=== PATIENT | female | born 1965 | race Caucasian/White ===

== ENCOUNTER → 2016-10-09 | Outpatient (CLI) | payer MEDICAID ==
[~2016-10-09] MED LIST: ACET-789 PO; ALBU17AE23 IH; AMLO10TA4; AMLO10TA4 PO; AMOX-355 PO; AMOX500C2 PO; ASP325T PO; CEPH-38 PO; CLR7.5T; CLR7.5T PO; DOCU-143 PO; FLUT9.9S NS; GUAI1TAB21; HYDR12.56 PO; HYDR480S10 PO; HYOMAX; HYOS0.1216 PO; HYOS0.3710 PO; IBUP-1773 PO; INDERAL; ISOM1CAP11 PO; ONDA4TAB11 PO; OXYC-471 PO; PREMPRO; PROP120C2 PO; PROP20TA5 PO; PROP80CA2 PO; PROPRANOLOL 120 MG; SCOP1PAT TOP; TERBIN250T PO; TRM50T PO; VENL50TA; VNL75CCR PO; [UNRECOGNIZED DRUG - CODE]; [UNRECOGNIZED DRUG - OTHER]; [UNRECOGNIZED DRUG - OTHER]
--- NOTE | 2016-10-09 13:21 | Diagnostic Imaging Report ---
INDICATION: Left lower quadrant pain. EXAMINATION: Pelvic sonogram. FINDINGS: The uterus measures 6.2 x 4.3 x 3.6 cm. The myometrium and endometrium appear normal. The left ovary is present. There is a 1.6 cm simple cyst on the left ovary. The right ovary could not be located sonographically. IMPRESSION: Unremarkable pelvic sonogram. Dictated by: Dictated on workstation # [id number]
== END ==
LOC: RAD 10:02
PROVIDERS: ATTEND Nurse Practitioner Community Health
DX: N83.201 Unspecified ovarian cyst, right side (principal)
CPT/HCPCS: 76830; 76856

== ENCOUNTER → 2016-11-14 | Outpatient (CLI) | payer MEDICAID ==
--- NOTE | 2016-11-14 17:43 | Diagnostic Imaging Report ---
Bilateral screening mammogram. The current study was also evaluated with a Computer Aided Detection (CAD) system. INDICATION: Screening. No current complaints stated on the questionnaire. COMPARISON: 11/10/15. FINDINGS: The breasts are composed of heterogeneously dense parenchyma which may decrease mammographic sensitivity. There are benign-appearing calcifications seen. Allowing for technique and positional differences, no suspicious change is seen. IMPRESSION: Dense breasts with no definite change. ACR BI-RADS Category 2: Benign findings. Result letter will be mailed to the patient. Note: At least 10% of breast cancer is not imaged by mammography. Dictated by: Dictated on workstation # [id number]
== END ==
LOC: RAD 13:49
PROVIDERS: ATTEND Family Medicine
DX: Z12.31 Encounter for screening mammogram for malignant neoplasm of breast (principal)
CPT/HCPCS: 77067

== ENCOUNTER 2016-11-26 08:59 | Outpatient (CLI) | payer MEDICAID ==
[~2016-11-26] VITALS: Ht 170.2 cm; Wt 73.2 kg
[~2016-11-26 08:59] MED LIST changes: -IBUP-1773 PO; -ONDA4TAB11 PO; -OXYC-471 PO; -SCOP1PAT TOP
[2016-11-26 09:15] VITALS: BP 123/80
[2016-11-26 09:44] LABS: BASOPHILS # (AUTO) 0.1 10^3/uL (0.0-0.1); BASOPHILS % (AUTO) 0 % (0-10); EOSINOPHILS # (AUTO) 0.2 10^3/uL (0.0-0.3); EOSINOPHILS % (AUTO) 2 % (0-10); LYMPHOCYTES # (AUTO) 3.5 X 10^3 (1.0-4.0); LYMPHOCYTES % (AUTO) 28 % (12-44); MEAN CORPUSCULAR HEMOGLOBIN 31 PG (25-34); MEAN CORPUSCULAR HGB CONC 34 G/DL (32-36); MEAN CORPUSCULAR VOLUME 92 FL (80-99); MEAN PLATELET VOLUME 10.4 FL (7.4-10.4); MONOCYTES # (AUTO) 0.7 X 10^3 (0.0-1.0); MONOCYTES % (AUTO) 6 % (0-12); NEUTROPHILS # (AUTO) 7.8 X 10^3 (1.8-7.8); NEUTROPHILS % (AUTO) 64 % (42-75); PLATELET COUNT 269 10^3/uL (130-400); RED BLOOD COUNT 4.58 10^6/uL (4.35-5.85); RED CELL DISTRIBUTION WIDTH 12.6 % (10.0-14.5); WHITE BLOOD COUNT 12.2 10^3/uL (4.3-11.0)
[2016-11-28] MEDS ORDERED: IBUP-1773 PO (08:59)
== END 2016-11-26 13:13 | disposition home or self-care (01) ==
LOC: PREOP 08:59
PROVIDERS: ATTEND Obstetrics & Gynecology
DX: Z01.812 Encounter for preprocedural laboratory examination (principal); Z11.2 Encounter for screening for other bacterial diseases; N92.0 Excessive and frequent menstruation with regular cycle
CPT/HCPCS: 36415; 85025; 86850; 86900; 86901; 87081

== ENCOUNTER 2016-11-28 06:54 | Day surgery (SDC) | payer MEDICAID ==
[~2016-11-28] VITALS: Ht 170.2 cm; Wt 73.2 kg
[2016-11-28 07:31] VITALS: BP 118/80
[2016-11-28] MEDS ORDERED: ONDANSETRON 4 MG/2 ML (SDV) Z0FRAN ONE ×2 (07:33→08:27)
[2016-11-28] MEDS ORDERED: SCOPOLAMINE 1.5 MG (TRANSDERM-SCOP) PATCH ONE (07:33)
[2016-11-28] MEDS ORDERED: FAMOTIDINE 20MG/2ML IV (PEPCID) ONE (07:34)
[2016-11-28] MEDS ORDERED: LACTATED RINGERS 1,000 ML IV PRN (07:36)
[2016-11-28] MEDS ORDERED: SCOPOLAMINE 1.5 MG (TRANSDERM-SCOP) PATCH TOP ONE (07:45)
[2016-11-28] MEDS ORDERED: ONDANSETRON 4 MG/2 ML (SDV) Z0FRAN IV ONE (07:45)
[2016-11-28] MEDS ORDERED: FAMOTIDINE 20MG/2ML IV (PEPCID) IV ONE (07:45)
[2016-11-28] MEDS ORDERED: LACTATED RINGERS 1,000 ML IV ONE ×2 (08:27→09:16)
[2016-11-28] MEDS ORDERED: SEVOFLURANE (ULTANE) 15 ML INHAL SOLN ONE ×3 (08:27→09:36)
[2016-11-28] MEDS ORDERED: DEXAMETHASONE PF 10 MG/ML (DECADRON) VIAL ONE (08:27)
[2016-11-28] MEDS ORDERED: fentaNYL INJECTION 100 MCG/2 ML AMP ONE (08:27)
[2016-11-28] MEDS ORDERED: proPOfol 200 MG/20 ML (DIPRIVAN) VIAL IV ONE (08:27)
[2016-11-28] MEDS ORDERED: LIDOCAINE PF 2% 10 ML (XYLOCAINE) AMP ONE (08:27)
[2016-11-28] MEDS ORDERED: MIDAZOLAM 2 MG/2 ML (VERSED) VIAL ONE (08:28)
--- NOTE | 2016-11-28 08:58 | Progress Note-Pre Operative ---
Pre-Operative Progress Note H&P Reviewed The H&P was reviewed, patient examined and no changes noted. Date H&P Reviewed: Nov 28, 2016 Time H&P Reviewed: 08:57 Pre-Operative Diagnosis: AUB, Menorrhagia PATRIA EASTON DO Nov 28, 2016 8:58 am
[2016-11-28] MEDS ORDERED: IBUP-1773 PO (08:59)
[2016-11-28] MEDS ORDERED: BUPIVACAINE 0.25% 30 ML (SENSORCAINE) VIAL ONE (09:00)
--- NOTE | 2016-11-28 09:02 | Discharge Inst-Women's Service ---
Discharge Inst-Women's Serv Depart Medication/Instructions New, Converted or Re-Newed RX: RX Given to Pt/Family Consults/Follow Up Additional Follow Up: Yes Activity Activity: Activity as Tolerated Driving Instructions: You May Drive NO SMOKING: NO SMOKING Nothing Inside Vagina: No Douching, No [place], No Tampons Diet Discharge Diet: No Restrictions Symptoms to Report to : Bleeding Excessive, Pain Increased, Fever Over 101 Degrees F, Vaginal Bleeding Increase, Questions/Concerns Skin/Wound Care Bathing Instructions: Shower (x 2 days) PATRIA EASTON DO Nov 28, 2016 9:02 am
[2016-11-28] MEDS ORDERED: GLYCOPYRROLATE 0.2 MG/ML (ROBINUL) 2 ML VIAL ONE (09:16)
[2016-11-28] MEDS ORDERED: KETOROLAC 30 MG/ML VIAL ONE (09:24)
[2016-11-28] MEDS ORDERED: ONDANSETRON 4 MG/2 ML (SDV) Z0FRAN IVP PRN (09:45)
[2016-11-28] MEDS ORDERED: morphine INJ 10 MG/ML 1ML (SYR OR VIAL) IVP PRN (09:45)
[2016-11-28] MEDS ORDERED: MEPERIDINE (DEMEROL) INJ 50 MG/ML IVP PRN (09:45)
[2016-11-28] MEDS ORDERED: morphine INJ 4 MG/ML 1 ML (VIAL/SYRINGE) ONE (10:00)
[2016-11-28 10:25] VITALS: BP 127/83
[2016-11-28] MEDS ORDERED: IBUPROFEN TABLET 200 MG TAB PO ONE (10:32)
[2016-11-28] MEDS ORDERED: IBUPROFEN 600 MG (MOTRIN) TAB PO ONE (10:45)
[2016-11-28 10:55] VITALS: BP 133/81
[2016-11-28 11:25] VITALS: BP 105/70
[2016-11-28 11:30] VITALS: BP 105/70
--- NOTE | 2016-11-28 13:21 | OPERATIVE REPORT ---
PROCEDURE PHYSICIAN: PATRIA EASTON DATE OF PROCEDURE: 11/28/2016 PREOPERATIVE DIAGNOSES: 51-year-old female with abnormal uterine bleeding - menorrhagia. POSTOPERATIVE DIAGNOSES: 51-year-old female with abnormal uterine bleeding -- menorrhagia. PROCEDURE: D\T\C hysteroscopy with NovaSure endometrial ablation. SURGEON: Dr. Patria Easton. ANESTHESIA: General endotracheal. ESTIMATED BLOOD LOSS: Minimal. URINE OUTPUT: 100 mL clear drained urine at the end of the procedure via straight catheterization. FLUIDS: 1500 mL of lactated ringer solution. SPECIMEN SENT: Endometrial curettings. INDICATIONS FOR THE PROCEDURE: This 51-year-old female was a consultation in my office for possible endometrial ablation after the patient has recurrent issues with heavy menses that are sporadic and cannot be determined by timing of the month. The patient reports these are ongoing issues and had seen me in the past for some more complaint where we ended up going with more conservative measures. At this visit endometrial biopsy was obtained and I discussed with the patient if biopsy was negative we could proceed with endometrial ablation if that is the course she wished to take. The risk of the procedure was discussed wit the patient in detail as well as alternatives, risk of bleeding, infection, damaging any surrounding structures, including but not limited to the bowel, bladder, ureter, kidneys, risk for perforation, and risk of damage from the NovaSure itself was also discussed the patient in detail. After all of her questions were answered, risk from anesthesia was discussed and even . The patient consented for the procedure as detailed above and the patient was then taken to the operating room. OPERATIVE REPORT IN DETAIL: Once in the operating room general anesthesia was found to be adequate. She was placed in the dorsal lithotomy position, prepped and draped in the normal sterile fashion. A timeout is performed. I then placed a weighted speculum into the patient's vagina. A right angle retractor was used to visualize the cervix. It was grasped at the 12 o'clock position using long Allis clamp. I then perform a paracervical block at 3 and 9 o'clock positions using 0.25% Marcaine. Care is taken to aspirate before injecting. A total of 10 mL were used at these injection sites. I then gently dilate the cervix using Hegar dilators after sounding the uterine cavity depth which was found to be approximately 7.5 cm. After the cervix is dilated. I introduced a hysteroscope under direct visualization using normal saline as my visual medium, and true clear as my fluid monitoring system. I am able to visualize the endometrial cavity. There is a moderate amount of fluffy endometrium on the right endometrial wall. The remainder of the endometrial cavity is pretty atrophic. I then remove my hysteroscope and collect endometrial curettings. I then proceed with ablating the endometrial cavity using the NovaSure. Cavity depth is assessed using NovaSure, cavity depth assessment tool which was found to be approximately 4 cm. I then set the cavity depth of 4 cm and deploy the NovaSure in the endometrial canal. I then find a cavity width to be approximately 2.5 cm; we set the device accordingly to 4 and 2.5 cm. Care was taken to do a cavity assessment. I then enabled the NovaSure device. Once it is complete I remove it and deploying the device outside the patient's bladder which shows evidence of endometrial sadie. I then advance a hysteroscope to confirm proper sadie of the endometrial cavity which was found to be adequate and documented with photodocumentation. I then remove the hysteroscope and remove all the other instruments from the patient's vagina. The patient tolerated the procedure well and was taken to recovery area in stable condition. Lap and sponge counts were correct at the end of the procedure. Instrument counts correct as well. Job ID: [id number] Dictated Date: 11/28/2016 09:59:30 Performance Improvement Analyst Date: 11/28/2016 13:07:04 / moshe
[2016-12-19] MEDS ORDERED: OXYC-471 PO (11:39)
[2016-12-19] MEDS ORDERED: IBUP-1773 PO (11:39)
[2016-12-19] MEDS ORDERED: SCOP1PAT TOP (11:39)
--- OUTSIDE RECORDS SUMMARY | 2016-12-29 20:40 | XMS REPORT ---
Author Author LETTY WILKINS [facility] Address [address] [place] [address] Care Team Providers Care Fold Skiver Name Role Phone LETTY WILKINS Unavailable PROBLEMS Type Condition ICD9-CM Code [id number] Code Onset Dates Condition Status SNOMED Code Assessment Hypertension I10 28 Apr, 2016 Active 93201621 Problem Generalized anxiety disorder F41.1 Active 103528987 Problem Other and unspecified hyperlipidemia 272.4 Active 27829174 Problem Diverticulosis of small intestine (without mention of hemorrhage) 562.00 Active 7181574 Problem Chest pain, unspecified 786.50 Active 54084700 Problem Esophageal reflux 530.81 Active 613918314 Problem Hypertension I10 Active 87153764 Problem Dense breast tissue R92.2 Active 867804949 Problem History of colon polyps Z86.010 Active 275514187 Problem Family history of diabetes mellitus Z83.3 Active 540841573 Problem History of diverticulitis Z87.19 Active 270991722652517 Problem Unspecified vaginitis and vulvovaginitis 616.10 Active 490794363 Problem Dysphagia, unspecified 787.20 Active 04425164 Problem Unspecified gastritis and gastroduodenitis without mention of hemorrhage 535.50 Active 143901381 Problem Perimenopausal N95.1 Active 518202137685406 Problem History of ovarian cyst Z87.42 Active 344681009 Problem Hot flashes N95.1 Active 946488815 Problem Excessive and frequent menstruation with irregular cycle N92.1 Active 777530026 Problem Dermatophytosis of nail 110.1 Active 756001252 Problem 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 719989938 Problem Family history of diabetes mellitus V18.0 Active 898993720 Problem Screening for malignant neoplasm of the cervix V76.2 Active 756943284 Problem Need for prophylactic vaccination and inoculation, Influenza V04.81 Active 557887922 Problem Abdominal pain, unspecified site 789.00 Active 10920079 Problem Rash and other nonspecific skin eruption 782.1 Active 513640945 Problem Unspecified otalgia 388.70 Active 95667226 ALLERGIES Unknown Allergies SOCIAL HISTORY No smoking Hx information available PLAN OF CARE VITAL SIGNS MEDICATIONS Medication Instructions Dosage Frequency Start Date End Date Duration Status Clorazepate Dipotassium 7.5 MG TAKE ONE TABLET BY MOUTH TWICE DAILY. ALSO MAY TAKE ONE OR TWO TABLETS IN THE AFTERNOON NEEDED FOR ANXIETY 6h Active Ztxiuzudpd-JTSK-Hjjzhdla 50-325-40 MG Orally and then 1 capsule every 4 hrs PRN not to exceed 6 capsules in 24 hrs 2 capsules at onset of headache Feb, Active Hyoscyamine Sulfate 0.125 MG TAKE ONE TABLET BY MOUTH FOUR TIMES DAILY NEEDED 8 Active Propranolol HCl ER Beads 80 MG Orally Once a day. Take with 120mg Capsule 1 capsule at bedtime Apr, 30 day(s) Active Hydrochlorothiazide 12.5 MG TAKE ONE TO TWO CAPSULES BY MOUTH ONCE DAILY NEEDED FOR SWELLING Active Baclofen 20 mg Orally every 8 hrs 1 tablet with food or milk 8h Apr, May, 30 day(s) Active Zofran 4 MG Orally every 8 hours, PRN 1 tablets Apr, 30 days Active Flonase 50 mcg/actuation 2 Nasal [place] by Nasal route 1 time per day May, Active InnoPran XL 120 MG Orally Once a day. Take with 80mg Capsule 1 capsule at bedtime Active RESULTS No Results PROCEDURES No Known procedures IMMUNIZATIONS No Known Immunizations
--- OUTSIDE RECORDS SUMMARY | 2016-12-29 20:40 | XMS REPORT ---
Author Author KVNG MERCHANT eClinicalWorks Address Unknown Phone Unavailable Care Team Providers Care Chronic Specialist Name Role Phone KVNG MERCHANT CP Unavailable Allergies No Known Allergies Problems Problem Type Condition Code Onset Dates Condition Status Assessment Depressive disorder, not elsewhere classified F32.9 Active Assessment Generalized anxiety disorder F41.1 Active Problem Depressive disorder, not elsewhere classified F32.9 Active Problem Abdominal pain, unspecified site 789.00 Active Problem Generalized anxiety disorder F41.1 Active Problem Other and unspecified hyperlipidemia 272.4 Active Problem Diverticulosis of small intestine (without mention of hemorrhage) 562.00 Active Problem Chest pain, unspecified 786.50 Active Problem History of colon polyps Z86.010 Active Problem Hypertension I10 Active Problem History of diverticulitis Z87.19 Active Problem Hot flashes N95.1 Active Problem Dysphagia, unspecified 787.20 Active Problem Unspecified gastritis and gastroduodenitis without mention of hemorrhage 535.50 Active Problem Family history of diabetes mellitus Z83.3 Active Problem Esophageal reflux 530.81 Active Problem History of ovarian cyst Z87.42 Active Problem Dense breast tissue R92.2 Active Problem Excessive and frequent menstruation with irregular cycle N92.1 Active Problem Perimenopausal N95.1 Active Problem Screening for malignant neoplasm of the cervix V76.2 Active Problem Dermatophytosis of nail 110.1 Active Problem Unspecified vaginitis and vulvovaginitis 616.10 Active Problem Family history of diabetes mellitus V18.0 Active Problem Unspecified otalgia 388.70 Active Problem Need for prophylactic vaccination and inoculation, Influenza V04.81 Active Problem 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
--- OUTSIDE RECORDS SUMMARY | 2016-12-29 20:40 | XMS REPORT ---
Author Author KVNG MERCHANT eClinicalWorks Address Unknown Phone Unavailable Care Team Providers Care Electrical Control Assembler Name Role Phone KVNG MERCHANT CP Unavailable Allergies No Known Allergies Problems Problem Type Condition Code Onset Dates Condition Status Problem Family history of diabetes mellitus V18.0 Active Problem Dermatophytosis of nail 110.1 Active Problem Screening for malignant neoplasm of the cervix V76.2 Active Problem Other and unspecified hyperlipidemia 272.4 Active Problem Abdominal pain, unspecified site 789.00 Active Problem Chest pain, unspecified 786.50 Active Problem Rash and other nonspecific skin eruption 782.1 Active Problem 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 Problem Need for prophylactic vaccination and inoculation, Influenza V04.81 Active Problem Unspecified otalgia 388.70 Active Assessment Generalized anxiety disorder F41.1 Active Problem Depressive disorder, not elsewhere classified F32.9 Active Assessment Depressive disorder, not elsewhere classified F32.9 Active Problem Esophageal reflux 530.81 Active Problem Unspecified gastritis and gastroduodenitis without mention of hemorrhage 535.50 Active Problem Generalized anxiety disorder F41.1 Active Problem Dysphagia, unspecified 787.20 Active Problem Diverticulosis of small intestine (without mention of hemorrhage) 562.00 Active Problem Unspecified vaginitis and vulvovaginitis 616.10 Active Medications No Known Medications Procedures Procedure Coding System Code Date Psychotherapy, patient &/family, 45 minutes, established patient CPT-4 95115 Jul 06, 2015 Results No Known Results Summary Purpose eClinicalWorks Submission
--- OUTSIDE RECORDS SUMMARY | 2016-12-29 20:40 | XMS REPORT ---
Author Author KVNG MERCHANT eClinicalWorks Address Unknown Phone Unavailable Care Team Providers Care Bow Rehairer Name Role Phone KVNG MERCHANT CP Unavailable [...] Coding System Code Date Psychotherapy, patient &/family, 30 minutes, established patient CPT-4 28978 Jun 10, 2016 Results No Known Results Summary Purpose eClinicalWorks Submission
--- OUTSIDE RECORDS SUMMARY | 2016-12-29 20:40 | XMS REPORT ---
Author Author IRAIDA KISER [facility] eClinicalWorks Address Unknown Phone Unavailable Care Team Providers Care Income Tax Analyst Name Role Phone IRAIDA KISER Unavailable Allergies, Adverse Reactions, Alerts Substance Reaction Event Type Sulfamethoxazole-Trimethoprim Info Not Available Drug Allergy Erythromycin rash Drug Allergy Hydrocodone dizziness Non Drug Allergy Problems Problem Type Condition Code Onset Dates Condition Status Assessment Dental examination Z01.20 Active Problem Depressive disorder, not elsewhere classified [...] other nonspecific skin eruption 782.1 Active Medications Medication Code System Code Instructions Start Date End Date Status Dosage InnoPran XL NDC [address]-40 80 MG Orally Once a day 1 capsule at bedtime propranolol NDC 0 20 mg May 04, 2013 1 tablet by Oral route 1 time per day PRN TACHYCARDIA Clorazepate Dipotassium [facility] [address]-[address] [place]wood to sign TAKE ONE TABLET BY MOUTH TWICE DAILY. ALSO MAY TAKE ONE OR TWO TABLETS IN THE AFTERNOON NEEDED FOR ANXIETY InnoPran XL [facility] [address]-37 120 MG Orally Once a day December 22, 2015 1 capsule at bedtime Hydrochlorothiazide [facility] [address]-83 12.5 MG TAKE ONE TO TWO CAPSULES BY MOUTH ONCE DAILY NEEDED FOR SWELLING Flonase [facility] [address]-72 50 mcg/actuation Jun 21, 2014 2 Nasal [place] by Nasal route 1 time per day Hyoscyamine Sulfate [facility] 30935572128 0.125 MG TAKE ONE TABLET BY MOUTH FOUR TIMES DAILY NEEDED Procedures Procedure Coding System Code Date RESIN COMPOS - 1 SURFACE POSTERIOR CPT-4 D2391 February 28, 2016 Billing Notes on claim CPT-4 EC109 February 28, 2016 RESIN COMPOS - 1 SURFACE POSTERIOR CPT-4 D2391 February 28, 2016 Vital Signs Date/Time: February 28, 2016 Blood Pressure Diastolic 70 mmHg Blood Pressure Systolic 136 mmHg Height 66 in Results No Known Results Summary Purpose eClinicalWorks Submission
--- OUTSIDE RECORDS SUMMARY | 2016-12-29 20:40 | XMS REPORT ---
Author Author LETTY WILKINS [facility] eClinicalWorks Address Unknown Phone Unavailable Care Team Providers Care Pollution Control Technician Name Role Phone LETTY WILKINS CP Unavailable Allergies, Adverse Reactions, Alerts Substance Reaction Event Type Sulfanilamide anaphylaxis Drug Allergy Erythromycin rash Drug Allergy Hydrocodone dizziness Non Drug Allergy Problems Problem Type Condition Code Onset Dates Condition Status Assessment Sinusitis J32.9 Active Problem Depressive disorder, not elsewhere classified [...] Instructions Start Date End Date Status Dosage Promethazine HCl [facility] [address]-81 25 MG Orally every 6 hrs PRN nausea 1 tablet InnoPran XL [facility] [address]-34 120 MG TAKE ONE CAPSULE BY MOUTH AT BEDTIME (MUST HAVE APPOINTMENT FOR FURTHER REFILLS!!!!) Zithromax Z-Terrell [facility] [address]-69 250 MG Orally Once a day December 07, 2015 December 12, 2015 2 tablets on the first day, then 1 tablet daily for 4 days Flonase NDC 0 50 mcg/actuation Jun 21, 2014 2 Nasal [place] by Nasal route 1 time per day Hydrochlorothiazide [place] 31830536820 12.5 MG TAKE ONE TO TWO CAPSULES BY MOUTH ONCE DAILY NEEDED FOR SWELLING InnoPran XL [facility] [address]-45 80 MG Orally Once a day 1 capsule at bedtime propranolol NDC 0 20 mg May 04, 2013 1 tablet by Oral route 1 time per day [place] [address]-72 250 MG Orally Once a day Oct 16, 2015 1 tablet Hyoscyamine Sulfate [facility] 37440421231 0.125 MG TAKE ONE TABLET BY MOUTH FOUR TIMES DAILY NEEDED Clorazepate Dipotassium [facility] [address]-[address] [place] to sign TAKE ONE TABLET BY MOUTH TWICE DAILY. ALSO MAY TAKE ONE OR TWO TABLETS IN THE AFTERNOON NEEDED FOR ANXIETY Procedures Procedure Coding System Code Date Office Visit, Est Pt., Level 3 CPT-4 39636 December 07, 2015 Vital Signs Date/Time: December 07, 2015 Temperature 98.0 F Weight 168 lbs Height 66 in BMI 27.11 Index Blood Pressure Diastolic 82 mmHg Blood Pressure Systolic 122 mmHg Cardiac Monitoring Heart Rate 76 bpm Results No Known Results Summary Purpose eClinicalWorks Submission
--- OUTSIDE RECORDS SUMMARY | 2016-12-29 20:40 | XMS REPORT ---
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 Problem Depressive disorder, not elsewhere classified 311 Active Problem Chest pain, unspecified 786.50 Active Problem Generalized anxiety disorder 300.02 Active Problem Need for prophylactic vaccination and inoculation, Influenza V04.81 Active Problem Unspecified otalgia 388.70 Active Problem Other and unspecified hyperlipidemia 272.4 Active Problem Abdominal pain, unspecified site 789.00 Active Problem Diverticulosis of small intestine (without mention of hemorrhage) 562.00 Active Problem Esophageal reflux 530.81 Active Assessment Dental examination V72.2 Active Problem Unspecified vaginitis and vulvovaginitis 616.10 Active Problem Dissociative disorder or reaction, unspecified 300.15 Active Problem Unspecified gastritis and gastroduodenitis without mention of hemorrhage 535.50 Active Problem Family history of diabetes mellitus V18.0 Active Problem Dysphagia, unspecified 787.20 Active Problem Screening for malignant neoplasm of the cervix V76.2 Active Medications No Known Medications Procedures Procedure Coding System Code Date BITEWINGS - THREE FILMS CPT-4 D0273 Apr 05, 2015 TOPICAL FLUORIDE VARNISH CPT-4 D1206 Apr 05, 2015 PERIODIC ORAL EXAMINATION CPT-4 D0120 Apr 05, 2015 Periodontal maint procedures CPT-4 D4910 Apr 05, 2015 Results No Known Results Summary Purpose eClinicalWorks Submission
--- OUTSIDE RECORDS SUMMARY | 2016-12-29 20:40 | XMS REPORT ---
Author Author LETTY WILKINS [facility] eClinicalWorks Address Unknown Phone Unavailable Care Team Providers Care Audit Manager Name Role Phone LETTY WILKINS CP Unavailable Allergies, Adverse Reactions, Alerts Substance Reaction Event Type Sulfanilamide anaphylaxis Drug Allergy Erythromycin rash Drug Allergy Hydrocodone dizziness Non Drug Allergy Problems Problem Type Condition Code Onset Dates Condition Status Problem Dermatophytosis [...] Active Problem Esophageal reflux 530.81 Active Assessment Right shoulder pain M25.511 Active Assessment Encounter for immunization Z23 Active Problem Unspecified vaginitis and vulvovaginitis 616.10 Active Problem Dissociative disorder or reaction, unspecified 300.15 Active Problem Unspecified gastritis and gastroduodenitis without mention of hemorrhage 535.50 Active Problem Family history of diabetes mellitus V18.0 Active Problem Dysphagia, unspecified 787.20 Active Problem Screening for malignant neoplasm of the cervix V76.2 Active Medications Medication Code System Code Instructions Start Date End Date Status Dosage InnoPran XL [facility] [address]-19 80 MG Orally Once a day PT NEEDS AN APPT FOR FURTHER REFILLS 1 capsule at bedtime Hydrochlorothiazide [facility] 45405115755 12.5 MG TAKE ONE TO TWO CAPSULES BY MOUTH ONCE DAILY NEEDED FOR SWELLING Flonase [facility] [address]-75 50 mcg/actuation Jun 21, 2014 2 Nasal [place] by Nasal route 1 time per day Acetaminophen-Codeine #3 [facility] [address]-18 300-30 MG Orally every 6 hrs PRN pain 1-2 tablet as needed Promethazine HCl [facility] [address]-97 25 MG Orally every 6 hrs PRN nausea 1 tablet Amlodipine Besylate [facility] [address]-13 10 MG Orally Once a day 1 tablet Hyoscyamine Sulfate [facility] [address]-01 0.125 mg Jul 28, 2014 1 tablet by Oral route 4 times per day PRN InnoPran XL [facility] [address]-01 120 MG Orally Once a day PT NEEDS AN APPT FOR FURTHER REFILLS 1 capsule at bedtime Clorazepate Dipotassium [facility] [address]-82 7.5 MG TAKE ONE TABLET BY MOUTH TWICE DAILY. ALSO MAY TAKE ONE OR TWO TABLETS IN THE AFTERNOON NEEDED FOR ANXIETY propranolol ND 0 20 mg May 04, 2013 1 tablet by Oral route 1 time per day PRN TACHYCARDIA Procedures Procedure Coding System Code Date SINGLE IMMUNIZATION ADMIN CPT-4 56678 Jun 05, 2015 ADMN FLU VAC NO FEE SCHED SAME DAY CPT-4 G0008 Jun 05, 2015 FLUARIX QUAD (3 & UP)-[employer]-2014 CPT-4 27492 Jun 05, 2015 Office Visit, Est Pt., Level 3 CPT-4 59867 Jun 05, 2015 Vital Signs Date/Time: Jun 05, 2015 Temperature 98.5 F Weight 183.7 lbs Height 66 in BMI 29.65 Index Blood Pressure Diastolic 95 mmHg Blood Pressure Systolic 150 mmHg Cardiac Monitoring Heart Rate 96 bpm Results No Known Results Immunizations Vaccine Administration Date FLUARIX QUAD (3 & UP)-[employer]-2014Jun 05, 2015 Summary Purpose eClinicalWorks Submission
--- OUTSIDE RECORDS SUMMARY | 2016-12-29 20:41 | XMS REPORT ---
Author Author KVNG MERCHANT eClinicalWorks Address Unknown Phone Unavailable Care Team Providers Care Bottle Tester Name Role Phone KVNG MERCHANT CP Unavailable Allergies No Known Allergies Problems Problem Type Condition Code Onset Dates Condition Status Assessment Generalized anxiety disorder F41.1 Active Problem Abdominal pain, unspecified site 789.00 [...] patient &/family, 45 minutes, established patient CPT-4 14631 Jul 09, 2016 Results No Known Results Summary Purpose eClinicalWorks Submission
--- OUTSIDE RECORDS SUMMARY | 2016-12-29 20:41 | XMS REPORT ---
Author Author LETTY WILKINS Organization eClinicalWorks Address Unknown Phone Unavailable Care Team Providers Care Tank House Operator Name Role Phone LETTY WILKINS CP Unavailable Allergies No Known Allergies Problems Problem Type Condition Code Onset Dates Condition Status Problem Depressive disorder, not elsewhere classified F32.9 [...] Date End Date Status Dosage InnoPran XL [facility] [address]-51 80 MG Orally Once a day 1 capsule at bedtime Hydrochlorothiazide [facility] [address]-54 12.5 MG TAKE ONE TO TWO CAPSULES BY MOUTH ONCE DAILY NEEDED FOR SWELLING Results No Known Results Summary Purpose eClinicalWorks Submission
--- OUTSIDE RECORDS SUMMARY | 2016-12-29 20:41 | XMS REPORT ---
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
--- OUTSIDE RECORDS SUMMARY | 2016-12-29 20:41 | XMS REPORT ---
Author Author PIEDRATEE Hines Organization [facility] Address [address] [place] [address] Care Team Providers Care Order Puller Name Role Phone PIEDRATEE Hines Unavailable PROBLEMS Type Condition ICD9-CM Code MLN98-EP Code Onset Dates Condition Status SNOMED Code Assessment Cervicalgia M54.2 Apr, Active 18036101 Problem Generalized anxiety disorder F41.1 Active 571732761 Problem Other and unspecified hyperlipidemia 272.4 Active 85138769 Problem Diverticulosis of small intestine (without mention of hemorrhage) 562.00 Active 8383599 Problem Chest pain, unspecified 786.50 Active 84347910 Problem Esophageal reflux 530.81 Active 261227927 Problem Hypertension I10 Active 87201862 Problem Dense breast tissue R92.2 Active 539449732 Problem History of colon polyps Z86.010 Active 889826345 Problem Family history of diabetes mellitus Z83.3 Active 707498605 Problem History of diverticulitis Z87.19 Active 335395723502476 Problem Unspecified vaginitis and vulvovaginitis 616.10 Active 414865127 Problem Dysphagia, unspecified 787.20 Active 23545183 Problem Unspecified gastritis and gastroduodenitis without mention of hemorrhage 535.50 Active 134953547 Problem Perimenopausal N95.1 Active 441475880878148 Problem History of ovarian cyst Z87.42 Active 322192490 Problem Hot flashes N95.1 Active 794390592 Problem Excessive and frequent menstruation with irregular cycle N92.1 Active 971396024 Problem Dermatophytosis of nail 110.1 Active 905213201 Problem 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 742027006 Problem Family history of diabetes mellitus V18.0 Active 462124775 Problem Screening for malignant neoplasm of the cervix V76.2 Active 115433580 Problem Need for prophylactic vaccination and inoculation, Influenza V04.81 Active 067096856 Problem Abdominal pain, unspecified site 789.00 Active 91114136 Problem Rash and other nonspecific skin eruption 782.1 Active 803418625 Problem Unspecified otalgia 388.70 Active 55609875 ALLERGIES Substance Reaction Event Type Date Status Sulfamethoxazole-Trimethoprim Unknown Drug Allergy Apr, Active Erythromycin rash Drug Allergy Apr, Active Hydrocodone dizziness Non Drug Allergy Apr, Active SOCIAL HISTORY No smoking Hx information available PLAN OF CARE VITAL SIGNS Height 66 in 2016-05-06 Weight 155.0 lbs 2016-05-06 Heart Rate 64 bpm 2016-05-06 BMI 25.01 kg/m2 2016-05-06 Blood pressure systolic 112 mmHg 2016-05-06 Blood pressure diastolic 86 mmHg 2016-05-06 MEDICATIONS Medication Instructions Dosage Frequency Start Date End Date Duration Status Percocet 5-325 MG Orally every 6 hrs 1 tablet as needed 6h Apr, Apr, 07 days Active Zofran 4 MG Orally every 8 hours, PRN 1 tablets Apr, 07 days Active Hyoscyamine Sulfate 0.125 MG TAKE ONE TABLET BY MOUTH FOUR TIMES DAILY NEEDED 8 Active InnoPran XL 120 MG Orally Once a day 1 capsule at bedtime 24h Nov, 90 day(s) Active Hydrochlorothiazide 12.5 MG TAKE ONE TO TWO CAPSULES BY MOUTH ONCE DAILY NEEDED FOR SWELLING Active propranolol 20 mg 1 tablet by Oral route 1 time per day PRN TACHYCARDIA Apr, Active Flonase 50 mcg/actuation 2 Nasal [place] by Nasal route 1 time per day May, Active Qkbqecbdhy-VQKR-Ypllaajc 50-325-40 MG Orally and then 1 capsule every 4 hrs PRN not to exceed 6 capsules in 24 hrs 2 capsules at onset of headache Feb, Active Baclofen 10 mg Orally Three times a day 1 tablet with food or milk 8h Apr, Apr, 07 days Active Clorazepate Dipotassium 7.5 MG TAKE ONE TABLET BY MOUTH TWICE DAILY. ALSO MAY TAKE ONE OR TWO TABLETS IN THE AFTERNOON NEEDED FOR ANXIETY 6h Active InnoPran XL 80 MG Orally Once a day 1 capsule at bedtime 24h 90 Active RESULTS Name Result Date Reference Range Xray : Spine, Cervical (IN HOUSE) 2016-05-06 PROCEDURES Procedure Date Ordered Related Diagnosis Body Site X-RAY EXAM OF NECK SPINE May 06, 2016 Office Visit, Est Pt., Level 3 May 06, 2016 IMMUNIZATIONS No Known Immunizations
--- OUTSIDE RECORDS SUMMARY | 2016-12-29 20:41 | XMS REPORT ---
Author Author REJI MCNALLY [facility] eClinicalWorks Address Unknown Phone Unavailable Care Team Providers Care Dining Car Conductor Name Role Phone REJI MCNALLY CP Unavailable Allergies, Adverse Reactions, Alerts Substance [...] Active Problem Unspecified otalgia 388.70 Active Assessment Skin lesion L98.9 Active Problem Depressive disorder, not elsewhere classified F32.9 Active Problem Esophageal reflux 530.81 Active Problem Unspecified gastritis and gastroduodenitis without mention of hemorrhage 535.50 Active Problem Generalized anxiety disorder F41.1 Active Problem Dysphagia, unspecified 787.20 Active Problem Diverticulosis of small intestine (without mention of hemorrhage) 562.00 Active Problem Unspecified vaginitis and vulvovaginitis 616.10 Active Medications Medication Code System Code Instructions Start Date End Date Status Dosage propranolol NDC 0 20 mg May 04, 2013 1 tablet by Oral route 1 time per day PRN TACHYCARDIA InnoPran XL [facility] [address]-82 120 MG TAKE ONE CAPSULE BY MOUTH AT BEDTIME (MUST HAVE APPOINTMENT FOR FURTHER REFILLS!!!!) Flonase NDC 0 50 mcg/actuation Jun 21, 2014 2 Nasal [place] by Nasal route 1 time per day Acetaminophen-Codeine #[address] [facility] [address]-99 300-30 MG Orally every 6 hrs PRN pain 1-2 tablet as needed Promethazine HCl [facility] [address]-25 25 MG Orally every 6 hrs PRN nausea 1 tablet Amlodipine Besylate [facility] [address]-81 10 MG Orally Once a day 1 tablet Hyoscyamine Sulfate [facility] [address]-25 0.125 mg Jul 28, 2014 1 tablet by Oral route 4 times per day PRN Clorazepate Dipotassium [facility] [address]-94 7.5 MG TAKE ONE TABLET BY MOUTH TWICE DAILY. ALSO MAY TAKE ONE OR TWO TABLETS IN THE AFTERNOON NEEDED FOR ANXIETY Hydrochlorothiazide [facility] 55208220558 12.5 MG TAKE ONE TO TWO CAPSULES BY MOUTH ONCE DAILY NEEDED FOR SWELLING Procedures Procedure Coding System Code Date Office Visit, Est Pt., Level 3 CPT-4 81417 Aug 23, 2015 Vital Signs Date/Time: Aug 23, 2015 Temperature 98.2 F Weight 174.1 lbs Height 66 in BMI 28.10 Index Blood Pressure Diastolic 90 mmHg Blood Pressure Systolic 140 mmHg Cardiac Monitoring Heart Rate 72 bpm Results No Known Results Summary Purpose eClinicalWorks Submission
--- OUTSIDE RECORDS SUMMARY | 2016-12-29 20:41 | XMS REPORT ---
Author Author LETTY WILKINS [facility] eClinicalWorks Address Unknown Phone Unavailable Care Team Providers Care Oracle Programmer Analyst Name Role Phone LETTY WILKINS CP Unavailable Allergies No Known Allergies Problems Problem Type Condition Code Onset Dates Condition Status Assessment History of diverticulitis Z87.19 Active Assessment Screening for malignant neoplasm of colon Z12.11 Active Assessment Family history of diabetes mellitus Z83.3 Active Assessment Tobacco use Z72.0 Active Assessment Well woman exam Z01.419 Active Assessment Encounter for screening for malignant neoplasm of cervix Z12.4 Active Assessment Onychomycosis B35.1 Active Assessment Hypertension I10 Active Problem Depressive disorder, not elsewhere classified [...] cycle N92.1 Active Problem Perimenopausal N95.1 Active Assessment Hot flashes N95.1 Active Problem Screening for malignant neoplasm of the cervix V76.2 Active Assessment Screening for malignant neoplasm of breast Z12.39 Active Problem Dermatophytosis of nail 110.1 Active Assessment Perimenopausal N95.1 Active Problem Unspecified vaginitis and vulvovaginitis 616.10 Active Assessment Excessive and frequent menstruation with irregular cycle N92.1 Active Problem Family history of diabetes mellitus V18.0 Active Problem Unspecified otalgia 388.70 Active Problem Need for prophylactic vaccination and inoculation, Influenza V04.81 Active Problem 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
--- OUTSIDE RECORDS SUMMARY | 2016-12-29 20:48 | XMS REPORT | Continuity of Care Document ---
Author Author [facility] Address Unknown Phone Unavailable Allergies Active Description Code Type Severity Reaction Onset Reported/Identified Relationship to Patient Clinical Status Yes codeine [id number] Drug Allergy Unknown N/A 11/22/2007 Yes Sulfa (Sulfonamide Antibiotics) [id number] Drug Allergy Unknown N/A 11/22/2007 Yes codeine Drug Allergy N/A N/A 10/10/2008 Yes erythromycin Drug Allergy N/A N/A 10/10/2008 Yes codeine Drug Allergy 10/10/2008 Yes erythromycin Drug Allergy 10/10/2008 Yes sulfa drug Drug Allergy 10/10/2008 Yes Hydrocodone Drug Allergy N/A N/A 10/08/2012 Yes Hydrocodone Drug Allergy 10/08/2012 Yes hydrocodone [id number] Drug Allergy Mild VOMITING 12/13/2016 Yes erythromycin base [id number] Drug Allergy Unknown N/A 12/13/2016 Yes Sulfa (Sulfonamide Antibiotics) [id number] Drug Allergy Unknown ANAPHYLAXIS 12/13/2016 Medications Problems Date Dx Coded Attending Type Code Diagnosis Diagnosed By 04/22/2008 WILLARD GOEL DDS N 401.1 ESSENTIAL HYPERTENSION BENIGN 04/22/2008 WILLARD GOEL DDS N 782.3 Edema 04/22/2008 WILLARD GOEL DDS N 783.1 Weight Gain Abnormal 04/22/2008 [facility] ESSENTIAL HYPERTENSION BENIGN 04/22/2008 [facility] Edema 04/22/2008 MAYUR KVNG AMBROSE R 783.1 Weight Gain Abnormal 04/22/2008 401.1 ESSENTIAL HYPERTENSION BENIGN 04/22/2008 782.3 Edema 04/22/2008 783.1 Weight Gain Abnormal 04/22/2008 401.1 ESSENTIAL HYPERTENSION BENIGN 04/22/2008 782.3 Edema 04/22/2008 783.1 Weight Gain Abnormal 04/22/2008 [facility], KVNG R 401.1 ESSENTIAL HYPERTENSION BENIGN 04/22/2008 [facility], KVNG R 782.3 Edema 04/22/2008 [facility], KVNG R 783.1 Weight Gain Abnormal 04/22/2008 401.1 ESSENTIAL HYPERTENSION BENIGN 04/22/2008 782.3 Edema 04/22/2008 783.1 Weight Gain Abnormal 04/22/2008 401.1 ESSENTIAL HYPERTENSION BENIGN 04/22/2008 782.3 Edema 04/22/2008 783.1 Weight Gain Abnormal 04/22/2008 401.1 ESSENTIAL HYPERTENSION BENIGN 04/22/2008 782.3 Edema 04/22/2008 783.1 Weight Gain Abnormal 04/22/2008 401.1 ESSENTIAL HYPERTENSION BENIGN 04/22/2008 782.3 Edema 04/22/2008 783.1 Weight Gain Abnormal 04/22/2008 401.1 ESSENTIAL HYPERTENSION BENIGN 04/22/2008 782.3 Edema 04/22/2008 783.1 Weight Gain Abnormal 04/22/2008 401.1 ESSENTIAL HYPERTENSION BENIGN 04/22/2008 782.3 Edema 04/22/2008 783.1 Weight Gain Abnormal 04/22/2008 401.1 ESSENTIAL HYPERTENSION BENIGN 04/22/2008 782.3 Edema 04/22/2008 783.1 Weight Gain Abnormal 04/22/2008 401.1 ESSENTIAL HYPERTENSION BENIGN 04/22/2008 782.3 Edema 04/22/2008 783.1 Weight Gain Abnormal 04/22/2008 401.1 ESSENTIAL HYPERTENSION BENIGN 04/22/2008 782.3 Edema 04/22/2008 783.1 Weight Gain Abnormal 04/22/2008 [facility], KVNG R 401.1 ESSENTIAL HYPERTENSION BENIGN 04/22/2008 [facility], KVNG R 782.3 Edema 04/22/2008 [facility], KVNG R 783.1 Weight Gain Abnormal 04/22/2008 [facility], KVNG R 401.1 ESSENTIAL HYPERTENSION BENIGN 04/22/2008 [facility], KVNG R 782.3 Edema 04/22/2008 [facility], KVNG R 783.1 Weight Gain Abnormal 04/22/2008 [facility], KVNG R 401.1 ESSENTIAL HYPERTENSION BENIGN 04/22/2008 [facility], KVNG R 782.3 Edema 04/22/2008 [facility], KVNG R 783.1 Weight Gain Abnormal 04/22/2008 NATHALIE TORO MD 401.1 ESSENTIAL HYPERTENSION BENIGN 04/22/2008 NATHALIE TORO MD 782.3 Edema 04/22/2008 NATHALIE TORO MD 783.1 Weight Gain Abnormal 04/22/2008 [facility], KVNG R 401.1 ESSENTIAL HYPERTENSION BENIGN 04/22/2008 [facility], KVNG R 782.3 Edema 04/22/2008 [facility], KVNG R 783.1 Weight Gain Abnormal 04/22/2008 EDUARDO COBB JR S 401.1 ESSENTIAL HYPERTENSION BENIGN 04/22/2008 EDUARDO COBB JR S 782.3 Edema 04/22/2008 EDUARDO COBB JR S 783.1 Weight Gain Abnormal 04/22/2008 [facility], KVNG R 401.1 ESSENTIAL HYPERTENSION BENIGN 04/22/2008 [facility], KVNG R 782.3 Edema 04/22/2008 [facility], KVNG R 783.1 Weight Gain Abnormal 04/22/2008 [facility], KVNG R 401.1 ESSENTIAL HYPERTENSION BENIGN 04/22/2008 [facility], KVNG R 782.3 Edema 04/22/2008 [facility], KVNG R 783.1 Weight Gain Abnormal 04/22/2008 ANTONIA WILKINS APRNNDA S 401.1 ESSENTIAL HYPERTENSION BENIGN 04/22/2008 FRANKY DAY LETTY S 782.3 Edema 04/22/2008 FRANKYJORDAN DAY LETTY S 783.1 Weight Gain Abnormal 04/22/2008 NATHALIE TORO MD 401.1 ESSENTIAL HYPERTENSION BENIGN 04/22/2008 NATHALIE TORO MD 782.3 Edema 04/22/2008 NATHALIE TORO MD 783.1 Weight Gain Abnormal 04/22/2008 [facility], KVNG R 401.1 ESSENTIAL HYPERTENSION BENIGN 04/22/2008 [facility], KVNG R 782.3 Edema 04/22/2008 [facility], KVNG R 783.1 Weight Gain Abnormal 04/22/2008 NATHALIE TORO MD 401.1 ESSENTIAL HYPERTENSION BENIGN 04/22/2008 NATHALIE TORO MD 782.3 Edema 04/22/2008 NATHALIE TORO MD 783.1 Weight Gain Abnormal 04/22/2008 [facility], KVNG R 401.1 ESSENTIAL HYPERTENSION BENIGN 04/22/2008 [facility], KVNG R 782.3 Edema 04/22/2008 [facility], KVNG R 783.1 Weight Gain Abnormal 04/22/2008 [facility], KVNG R 401.1 ESSENTIAL HYPERTENSION BENIGN 04/22/2008 [facility], KVNG R 782.3 Edema 04/22/2008 [facility], KVNG R 783.1 Weight Gain Abnormal 04/22/2008 [facility], KVNG R 401.1 ESSENTIAL HYPERTENSION BENIGN 04/22/2008 [facility], KVNG R 782.3 Edema 04/22/2008 [facility], KVNG R 783.1 Weight Gain Abnormal 04/22/2008 WANG ROTOPRINTER, ROBERT 401.1 ESSENTIAL HYPERTENSION BENIGN 04/22/2008 WANG ROTOPRINTER, ROBERT 782.3 Edema 04/22/2008 WANG ROTOPRINTER, ROBERT 783.1 Weight Gain Abnormal 04/22/2008 WANG ROTOPRINTER, ROBERT 401.1 ESSENTIAL HYPERTENSION BENIGN 04/22/2008 WANG ROTOPRINTER, ROBERT 782.3 Edema 04/22/2008 WANG ROTOPRINTER, ROBERT 783.1 Weight Gain Abnormal 04/22/2008 FRANKY ROTOPRINTER, LETTY S 401.1 ESSENTIAL HYPERTENSION BENIGN 04/22/2008 FRANKY ROTOPRINTER, LETTY S 782.3 Edema 04/22/2008 FRANKY ROTOPRINTER, LETTY S 783.1 Weight Gain Abnormal 04/22/2008 [facility], KVNG R 401.1 ESSENTIAL HYPERTENSION BENIGN 04/22/2008 [facility], KVNG R 782.3 Edema 04/22/2008 [facility], KVNG R 783.1 Weight Gain Abnormal 04/22/2008 [facility], KVNG R 401.1 ESSENTIAL HYPERTENSION BENIGN 04/22/2008 [facility], KVNG R 782.3 Edema 04/22/2008 [facility], KVNG R 783.1 Weight Gain Abnormal 04/22/2008 WANG ROTOPRINTER, ROBERT 401.1 ESSENTIAL HYPERTENSION BENIGN 04/22/2008 WANG ROTOPRINTER, ROBERT 782.3 Edema 04/22/2008 WANG ROTOPRINTER, ROBERT 783.1 Weight Gain Abnormal 04/22/2008 [facility], KVNG R 401.1 ESSENTIAL HYPERTENSION BENIGN 04/22/2008 [facility], KVNG R 782.3 Edema 04/22/2008 [facility] 783.1 Weight Gain Abnormal 04/22/2008 SHEILA WILKINS APRNA S 401.1 ESSENTIAL HYPERTENSION BENIGN 04/22/2008 FRANKY MAXN, LETTY S 782.3 Edema 04/22/2008 FRANKY ROTOPRINTER, LETTY S 783.1 Weight Gain Abnormal 04/22/2008 [facility], KVNG R 401.1 ESSENTIAL HYPERTENSION BENIGN 04/22/2008 [facility] KV[facility] R 782.3 Edema 04/22/2008 [facility], KVNG R 783.1 Weight Gain Abnormal 04/22/2008 [facility] 401.1 ESSENTIAL HYPERTENSION BENIGN 04/22/2008 [facility] R 782.3 Edema 04/22/2008 [facility] KV[facility] R 783.1 Weight Gain Abnormal 04/22/2008 [facility] KV[facility] R 401.1 ESSENTIAL HYPERTENSION BENIGN 04/22/2008 [facility] KV[facility] R 782.3 Edema 04/22/2008 [facility] KVNG R 783.1 Weight Gain Abnormal 04/22/2008 MUOGHALU DDS, WILLARD N 401.1 ESSENTIAL HYPERTENSION BENIGN 04/22/2008 MUOGHALU DDS, WILLARD N 782.3 Edema 04/22/2008 MUOGHALU DDS, WILLARD N 783.1 Weight Gain Abnormal 05/16/2008 MUOGHALU DDS, WILLARD N 300.00 AN ANXIETY UNSPEC 05/16/2008 MUOGHALU DDS, WILLARD N 311 MO DEPRESSIVE DISORDER NOS 05/16/2008 [facility], KVNG R 300.00 AN ANXIETY UNSPEC 05/16/2008 [facility], KVNG R 311 MO DEPRESSIVE DISORDER NOS 05/16/2008 300.00 AN ANXIETY UNSPEC 05/16/2008 311 MO DEPRESSIVE DISORDER NOS 05/16/2008 300.00 AN ANXIETY UNSPEC 05/16/2008 311 MO DEPRESSIVE DISORDER NOS 05/16/2008 [facility], KVNG R 300.00 AN ANXIETY UNSPEC 05/16/2008 [facility], KVNG R 311 MO DEPRESSIVE DISORDER NOS 05/16/2008 300.00 AN ANXIETY UNSPEC 05/16/2008 311 MO DEPRESSIVE DISORDER NOS 05/16/2008 300.00 AN ANXIETY UNSPEC 05/16/2008 311 MO DEPRESSIVE DISORDER NOS 05/16/2008 300.00 AN ANXIETY UNSPEC 05/16/2008 311 MO DEPRESSIVE DISORDER NOS 05/16/2008 300.00 AN ANXIETY UNSPEC 05/16/2008 311 MO DEPRESSIVE DISORDER NOS 05/16/2008 300.00 AN ANXIETY UNSPEC 05/16/2008 311 MO DEPRESSIVE DISORDER NOS 05/16/2008 300.00 AN ANXIETY UNSPEC 05/16/2008 311 MO DEPRESSIVE DISORDER NOS 05/16/2008 300.00 AN ANXIETY UNSPEC 05/16/2008 311 MO DEPRESSIVE DISORDER NOS 05/16/2008 300.00 AN ANXIETY UNSPEC 05/16/2008 311 MO DEPRESSIVE DISORDER NOS 05/16/2008 300.00 AN ANXIETY UNSPEC 05/16/2008 311 MO DEPRESSIVE DISORDER NOS 05/16/2008 [facility], KVNG R 300.00 AN ANXIETY UNSPEC 05/16/2008 [facility], KVNG R 311 MO DEPRESSIVE DISORDER NOS 05/16/2008 [facility], KVNG R 300.00 AN ANXIETY UNSPEC 05/16/2008 [facility], KVNG R 311 MO DEPRESSIVE DISORDER NOS 05/16/2008 [facility], KVNG R 300.00 AN ANXIETY UNSPEC 05/16/2008 [facility], KVNG R 311 MO DEPRESSIVE DISORDER NOS 05/16/2008 NATHALIE TORO MD 300.00 AN ANXIETY UNSPEC 05/16/2008 NATHALIE TORO MD 311 MO DEPRESSIVE DISORDER NOS 05/16/2008 [facility], KVNG R 300.00 AN ANXIETY UNSPEC 05/16/2008 [facility], KVNG R 311 MO DEPRESSIVE DISORDER NOS 05/16/2008 EDUARDO COBB JR 300.00 AN ANXIETY UNSPEC 05/16/2008 EDUARDO COBB JR 311 MO DEPRESSIVE DISORDER NOS 05/16/2008 [facility], KVNG R 300.00 AN ANXIETY UNSPEC 05/16/2008 [facility], KVNG R 311 MO DEPRESSIVE DISORDER NOS 05/16/2008 [facility], KVGN R 300.00 AN ANXIETY UNSPEC 05/16/2008 [facility], KVNG R 311 MO DEPRESSIVE DISORDER NOS 05/16/2008 LETTY WILKINS APRN 300.00 AN ANXIETY UNSPEC 05/16/2008 LETTY WILKINS APRN S 311 MO DEPRESSIVE DISORDER NOS 05/16/2008 NATHALIE TORO MD 300.00 AN ANXIETY UNSPEC 05/16/2008 NATHALIE TORO MD 311 MO DEPRESSIVE DISORDER NOS 05/16/2008 [facility], KVNG R 300.00 AN ANXIETY UNSPEC 05/16/2008 [facility], KVNG R 311 MO DEPRESSIVE DISORDER NOS 05/16/2008 NATHALIE TORO MD 300.00 AN ANXIETY UNSPEC 05/16/2008 NATHALIE TORO MD 311 MO DEPRESSIVE DISORDER NOS 05/16/2008 [facility], KVNG R 300.00 AN ANXIETY UNSPEC 05/16/2008 [facility], KVNG R 311 MO DEPRESSIVE DISORDER NOS 05/16/2008 [facility], KVNG R 300.00 AN ANXIETY UNSPEC 05/16/2008 [facility], KVNG R 311 MO DEPRESSIVE DISORDER NOS 05/16/2008 [facility], KVNG R 300.00 AN ANXIETY UNSPEC 05/16/2008 [facility], KVNG R 311 MO DEPRESSIVE DISORDER NOS 05/16/2008 WANG ROTOPRINTER, ROBERT 300.00 AN ANXIETY UNSPEC 05/16/2008 WANG ROTOPRINTER, ROBERT 311 MO DEPRESSIVE DISORDER NOS 05/16/2008 WANG ROTOPRINTER, ROBERT 300.00 AN ANXIETY UNSPEC 05/16/2008 WANG ROTOPRINTER, ROBERT 311 MO DEPRESSIVE DISORDER NOS 05/16/2008 ANTONIA WILKINS APRNNDA S 300.00 AN ANXIETY UNSPEC 05/16/2008 ANTONIA WILKINS APRNNDA S 311 MO DEPRESSIVE DISORDER NOS 05/16/2008 [facility], KVNG R 300.00 AN ANXIETY UNSPEC 05/16/2008 [facility], KVNG R 311 MO DEPRESSIVE DISORDER NOS 05/16/2008 [facility], KVNG R 300.00 AN ANXIETY UNSPEC 05/16/2008 [facility], KVNG R 311 MO DEPRESSIVE DISORDER NOS 05/16/2008 WANG ROTOPRINTER, ROBERT 300.00 AN ANXIETY UNSPEC 05/16/2008 WANG ROTOPRINTER, ROBERT 311 MO DEPRESSIVE DISORDER NOS 05/16/2008 [facility], KVNG R 300.00 AN ANXIETY UNSPEC 05/16/2008 [facility], KVNG R 311 MO DEPRESSIVE DISORDER NOS 05/16/2008 ANTONIA WILKINS APRNNDA S 300.00 AN ANXIETY UNSPEC 05/16/2008 FRANKY ROTOPRINTER, LETTY S 311 MO DEPRESSIVE DISORDER NOS 05/16/2008 [facility], KVNG R 300.00 AN ANXIETY UNSPEC 05/16/2008 [facility], KVNG R 311 MO DEPRESSIVE DISORDER NOS 05/16/2008 [facility], KVNG R 300.00 AN ANXIETY UNSPEC 05/16/2008 [facility] 311 MO DEPRESSIVE DISORDER NOS 05/16/2008 [facility], KVNG R 300.00 AN ANXIETY UNSPEC 05/16/2008 [facility] 311 MO DEPRESSIVE DISORDER NOS 05/16/2008 MUOGHALU DDS, WILLARD N 300.00 AN ANXIETY UNSPEC 05/16/2008 MUOGHALU DDS, WILLARD N 311 MO DEPRESSIVE DISORDER NOS 05/26/2008 MUOGHALU DDS, WILLARD N 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 05/26/2008 [facility], KVNG R 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 05/26/2008 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 05/26/2008 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 05/26/2008 [facility], KVNG R 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 05/26/2008 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 05/26/2008 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 05/26/2008 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 05/26/2008 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 05/26/2008 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 05/26/2008 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 05/26/2008 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 05/26/2008 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 05/26/2008 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 05/26/2008 [facility], KVNG R 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 05/26/2008 [facility], KVNG R 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 05/26/2008 [facility], KVNG R 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 05/26/2008 NATHALIE TORO MD 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 05/26/2008 [facility], KVNG R 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 05/26/2008 EDUARDO COBB JR 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 05/26/2008 [facility], KVNG R 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 05/26/2008 [facility], KVNG R 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 05/26/2008 LETTY WILKINS APRN 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 05/26/2008 NATHALIE TORO MD 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 05/26/2008 [facility], KVNG R 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 05/26/2008 NATHALIE TORO MD 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 05/26/2008 [facility], KVNG R 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 05/26/2008 [facility], KVNG R 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 05/26/2008 [facility], KVNG R 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 05/26/2008 WANG ROTOPRINTER, ROBERT 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 05/26/2008 WANG ROTOPRINTER, ROBERT 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 05/26/2008 FRANKY ROTOPRINTER, LETTY S 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 05/26/2008 [facility], KVNG R 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 05/26/2008 [facility], KVNG R 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 05/26/2008 WANG ROTOPRINTER, ROBERT 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 05/26/2008 [facility], KVNG R 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 05/26/2008 FRANKY ROTOPRINTER, LETTY S 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 05/26/2008 [facility], KVNG R 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 05/26/2008 [facility] 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 05/26/2008 [facility] 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 05/26/2008 MUOGHALU DDS, WILLARD N 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 06/03/2008 MUOGHALU DDS, WILLARD N 316 PF PSYCHIC FACTORS MED COND 06/03/2008 MAY[facility] KYEKVNG R 316 PF PSYCHIC FACTORS MED COND 06/03/2008 316 PF PSYCHIC FACTORS MED COND 06/03/2008 316 PF PSYCHIC FACTORS MED COND 06/03/2008 MAYUR DAVIDHALIEKVNG R 316 PF PSYCHIC FACTORS MED COND 06/03/2008 316 PF PSYCHIC FACTORS MED COND 06/03/2008 316 PF PSYCHIC FACTORS MED COND 06/03/2008 316 PF PSYCHIC FACTORS MED COND 06/03/2008 316 PF PSYCHIC FACTORS MED COND 06/03/2008 316 PF PSYCHIC FACTORS MED COND 06/03/2008 316 PF PSYCHIC FACTORS MED COND 06/03/2008 316 PF PSYCHIC FACTORS MED COND 06/03/2008 316 PF PSYCHIC FACTORS MED COND 06/03/2008 316 PF PSYCHIC FACTORS MED COND 06/03/2008 [facility], KVNG R 316 PF PSYCHIC FACTORS MED COND 06/03/2008 [facility], KVNG R 316 PF PSYCHIC FACTORS MED COND 06/03/2008 [facility], KVNG R 316 PF PSYCHIC FACTORS MED COND 06/03/2008 NATHALIE TORO MD 316 PF PSYCHIC FACTORS MED COND 06/03/2008 [facility], KVNG R 316 PF PSYCHIC FACTORS MED COND 06/03/2008 EDUARDO COBB JR 316 PF PSYCHIC FACTORS MED COND 06/03/2008 [facility], KVNG R 316 PF PSYCHIC FACTORS MED COND 06/03/2008 [facility], KVNG R 316 PF PSYCHIC FACTORS MED COND 06/03/2008 LETTY WILKINS APRN 316 PF PSYCHIC FACTORS MED COND 06/03/2008 NATHALIE TORO MD 316 PF PSYCHIC FACTORS MED COND 06/03/2008 [facility], KVNG R 316 PF PSYCHIC FACTORS MED COND 06/03/2008 NATHALIE TORO MD 316 PF PSYCHIC FACTORS MED COND 06/03/2008 [facility]SC[facility], KVNG R 316 PF PSYCHIC FACTORS MED COND 06/03/2008 [facility]SC[facility], KVNG R 316 PF PSYCHIC FACTORS MED COND 06/03/2008 [facility], KVNG R 316 PF PSYCHIC FACTORS MED COND 06/03/2008 WANG ROTOPRINTER, ROBERT 316 PF PSYCHIC FACTORS MED COND 06/03/2008 WANG ROTOPRINTER, ROBERT 316 PF PSYCHIC FACTORS MED COND 06/03/2008 LETTY WILKINS APRN S 316 PF PSYCHIC FACTORS MED COND 06/03/2008 [facility], KVNG R 316 PF PSYCHIC FACTORS MED COND 06/03/2008 [facility], KVNG R 316 PF PSYCHIC FACTORS MED COND 06/03/2008 WANG ROTOPRINTER, ROBERT 316 PF PSYCHIC FACTORS MED COND 06/03/2008 [facility], KVNG R 316 PF PSYCHIC FACTORS MED COND 06/03/2008 LETTY WILKINS APRN 316 PF PSYCHIC FACTORS MED COND 06/03/2008 [facility], KVNG R 316 PF PSYCHIC FACTORS MED COND 06/03/2008 [facility], KVNG R 316 PF PSYCHIC FACTORS MED COND 06/03/2008 [facility], KVNG R 316 PF PSYCHIC FACTORS MED COND 06/03/2008 MUOGHALU DDS, WILLARD N 316 PF PSYCHIC FACTORS MED COND 09/07/2008 MUOGHALU DDS, WILLARD N 465.9 Upper Respiratory Infection 09/07/2008 MUOGHALU DDS, WILLARD N V58.69 Medication High Risk 09/07/2008 [facility], KVNG R 465.9 Upper Respiratory Infection 09/07/2008 [facility], KVNG R V58.69 Medication High Risk 09/07/2008 465.9 Upper Respiratory Infection 09/07/2008 V58.69 Medication High Risk 09/07/2008 465.9 Upper Respiratory Infection 09/07/2008 V58.69 Medication High Risk 09/07/2008 [facility], KVNG R 465.9 Upper Respiratory Infection 09/07/2008 [facility], KVNG R V58.69 Medication High Risk 09/07/2008 465.9 Upper Respiratory Infection 09/07/2008 V58.69 Medication High Risk 09/07/2008 465.9 Upper Respiratory Infection 09/07/2008 V58.69 Medication High Risk 09/07/2008 465.9 Upper Respiratory Infection 09/07/2008 V58.69 Medication High Risk 09/07/2008 465.9 Upper Respiratory Infection 09/07/2008 V58.69 Medication High Risk 09/07/2008 465.9 Upper Respiratory Infection 09/07/2008 V58.69 Medication High Risk 09/07/2008 465.9 Upper Respiratory Infection 09/07/2008 V58.69 Medication High Risk 09/07/2008 465.9 Upper Respiratory Infection 09/07/2008 V58.69 Medication High Risk 09/07/2008 465.9 Upper Respiratory Infection 09/07/2008 V58.69 Medication High Risk 09/07/2008 465.9 Upper Respiratory Infection 09/07/2008 V58.69 Medication High Risk 09/07/2008 [facility], KVNG R 465.9 Upper Respiratory Infection 09/07/2008 [facility], KVNG R V58.69 Medication High Risk 09/07/2008 [facility], KVNG R 465.9 Upper Respiratory Infection 09/07/2008 [facility], [facility] R V58.69 Medication High Risk 09/07/2008 [facility], [facility] R 465.9 Upper Respiratory Infection 09/07/2008 [facility], [facility] V58.69 Medication High Risk 09/07/2008 NATHALIE TORO MD 465.9 Upper Respiratory Infection 09/07/2008 NATHALIE TORO MD V58.69 Medication High Risk 09/07/2008 [facility], [facility] 465.9 Upper Respiratory Infection 09/07/2008 [facility], [facility] V58.69 Medication High Risk 09/07/2008 EDUARDO COBB JR S 465.9 Upper Respiratory Infection 09/07/2008 REZA ZAPATA EDUARDO S V58.69 Medication High Risk 09/07/2008 [facility], [facility] 465.9 Upper Respiratory Infection 09/07/2008 [facility], [facility] V58.69 Medication High Risk 09/07/2008 [facility], [facility] R 465.9 Upper Respiratory Infection 09/07/2008 [facility], [facility] V58.69 Medication High Risk 09/07/2008 SHEILA WILKINS APRNA S 465.9 Upper Respiratory Infection 09/07/2008 FRANKY DAY, LETTY S V58.69 Medication High Risk 09/07/2008 NATHALIE TORO MD 465.9 Upper Respiratory Infection 09/07/2008 NATHALIE TORO MD V58.69 Medication High Risk 09/07/2008 [facility], [facility] R 465.9 Upper Respiratory Infection 09/07/2008 [facility], [facility] V58.69 Medication High Risk 09/07/2008 NATHALIE TORO MD 465.9 Upper Respiratory Infection 09/07/2008 NATHALIE TORO MD V58.69 Medication High Risk 09/07/2008 [facility], [facility] 465.9 Upper Respiratory Infection 09/07/2008 [facility], [facility] V58.69 Medication High Risk 09/07/2008 [facility], [facility] 465.9 Upper Respiratory Infection 09/07/2008 [facility], [facility] R V58.69 Medication High Risk 09/07/2008 [facility], [facility] R 465.9 Upper Respiratory Infection 09/07/2008 [facility], [facility] V58.69 Medication High Risk 09/07/2008 WANG ROTOPRINTER, ROBERT 465.9 Upper Respiratory Infection 09/07/2008 WANG ROTOPRINTER, ROBERT V58.69 Medication High Risk 09/07/2008 WANG ROTOPRINTER, ROBERT 465.9 Upper Respiratory Infection 09/07/2008 WANG ROTOPRINTER, ROBERT V58.69 Medication High Risk 09/07/2008 FRANKY ROTOPRINTER, LETTY S 465.9 Upper Respiratory Infection 09/07/2008 FRANKY ROTOPRINTER, LETTY S V58.69 Medication High Risk 09/07/2008 [facility], [facility] 465.9 Upper Respiratory Infection 09/07/2008 [facility], [facility] R V58.69 Medication High Risk 09/07/2008 [facility], [facility] R 465.9 Upper Respiratory Infection 09/07/2008 [facility], [facility] V58.69 Medication High Risk 09/07/2008 WANG ROTOPRINTER, ROBERT 465.9 Upper Respiratory Infection 09/07/2008 WANG ROTOPRINTER, ROBERT V58.69 Medication High Risk 09/07/2008 [facility], [facility] R 465.9 Upper Respiratory Infection 09/07/2008 [facility], [facility] V58.69 Medication High Risk 09/07/2008 FRANKY ROTOPRINTER, LETTY S 465.9 Upper Respiratory Infection 09/07/2008 FRANKY ROTOPRINTER, LETTY S V58.69 Medication High Risk 09/07/2008 [facility], [facility] R 465.9 Upper Respiratory Infection 09/07/2008 [facility], [facility] R V58.69 Medication High Risk 09/07/2008 [facility], [facility] R 465.9 Upper Respiratory Infection 09/07/2008 [facility], [facility] R V58.69 Medication High Risk 09/07/2008 [facility], [facility] R 465.9 Upper Respiratory Infection 09/07/2008 [facility], [facility] V58.69 Medication High Risk 09/07/2008 MUOGHALU DDS, WILLARD N 465.9 Upper Respiratory Infection 09/07/2008 MUOGHALU DDS, WILLARD N V58.69 Medication High Risk 10/12/2008 MUOGHALU DDS, WILLARD N NODX No Diagnosis 10/12/2008 [facility], [facility] NODX No Diagnosis 10/12/2008 NODX No Diagnosis 10/12/2008 NODX No Diagnosis 10/12/2008 [facility] NODX No Diagnosis 10/12/2008 NODX No Diagnosis 10/12/2008 NODX No Diagnosis 10/12/2008 NODX No Diagnosis 10/12/2008 NODX No Diagnosis 10/12/2008 NODX No Diagnosis 10/12/2008 NODX No Diagnosis 10/12/2008 NODX No Diagnosis 10/12/2008 NODX No Diagnosis 10/12/2008 NODX No Diagnosis 10/12/2008 [facility] NODX No Diagnosis 10/12/2008 [facility] NODX No Diagnosis 10/12/2008 [facility] NODX No Diagnosis 10/12/2008 MUNA SAUNDERS, NATHALIE NODX No Diagnosis 10/12/2008 [facility] NODX No Diagnosis 10/12/2008 REZA ZAPATA, EDUARDO S NODX No Diagnosis 10/12/2008 [facility] NODX No Diagnosis 10/12/2008 [facility] NODX No Diagnosis 10/12/2008 FRANKY ROTOPRINTER, LETTY S NODX No Diagnosis 10/12/2008 MUNA SAUNDERS, NATHALIE NODX No Diagnosis 10/12/2008 [facility] NODX No Diagnosis 10/12/2008 MUNA SAUNDERS, NATHALIE NODX No Diagnosis 10/12/2008 [facility] NODX No Diagnosis 10/12/2008 [facility] NODX No Diagnosis 10/12/2008 [facility] NODX No Diagnosis 10/12/2008 WANG ROTOPRINTER, ROBERT NODX No Diagnosis 10/12/2008 WANG ROTOPRINTER, ROBERT NODX No Diagnosis 10/12/2008 FRANKY ROTOPRINTER, LETTY S NODX No Diagnosis 10/12/2008 [facility] NODX No Diagnosis 10/12/2008 [facility] NODX No Diagnosis 10/12/2008 WANG ROTOPRINTER, ROBERT NODX No Diagnosis 10/12/2008 [facility] NODX No Diagnosis 10/12/2008 FRANKY ROTOPRINTER, LETTY S NODX No Diagnosis 10/12/2008 [facility] NODX No Diagnosis 10/12/2008 [facility] NODX No Diagnosis 10/12/2008 [facility] NODX No Diagnosis 10/12/2008 MUOGHALU DDS, WILLARD N NODX No Diagnosis 10/27/2008 MUOGHALU DDS, WILLARD N 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 10/27/2008 MUOGHALU DDS, WILLARD N 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 10/27/2008 [facility] 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 10/27/2008 [facility] 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 10/27/2008 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 10/27/2008 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 10/27/2008 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 10/27/2008 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 10/27/2008 [facility] 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 10/27/2008 [facility] 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 10/27/2008 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 10/27/2008 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 10/27/2008 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 10/27/2008 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 10/27/2008 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 10/27/2008 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 10/27/2008 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 10/27/2008 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 10/27/2008 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 10/27/2008 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 10/27/2008 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 10/27/2008 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 10/27/2008 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 10/27/2008 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 10/27/2008 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 10/27/2008 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 10/27/2008 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 10/27/2008 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 10/27/2008 [facility] 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 10/27/2008 [facility] 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 10/27/2008 [facility] 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 10/27/2008 [facility] 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 10/27/2008 [facility] 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 10/27/2008 [facility] 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 10/27/2008 NATHALIE TORO MD 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 10/27/2008 NATHALIE TORO MD 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 10/27/2008 [facility] 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 10/27/2008 [facility] 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 10/27/2008 EDUARDO COBB JR S 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 10/27/2008 EDUARDO COBB JR S 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 10/27/2008 [facility] 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 10/27/2008 [facility] 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 10/27/2008 [facility] 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 10/27/2008 [facility] 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 10/27/2008 FRANKY ROTOPRINTER, LETTY S 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 10/27/2008 FRANKY ROTOPRINTER, LETTY S 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 10/27/2008 NATHALIE TORO MD 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 10/27/2008 NATHALIE TORO MD 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 10/27/2008 [facility] 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 10/27/2008 [facility] 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 10/27/2008 NATHALIE TORO MD 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 10/27/2008 NATHALIE TORO MD 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 10/27/2008 [facility] 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 10/27/2008 [facility] 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 10/27/2008 [facility] 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 10/27/2008 [facility] 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 10/27/2008 [facility] 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 10/27/2008 [facility] 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 10/27/2008 WANG ROTOPRINTER, ROBERT 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 10/27/2008 WANG ROTOPRINTER, ROBERT 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 10/27/2008 WANG ROTOPRINTER, ROBERT 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 10/27/2008 WANG ROTOPRINTER, ROBERT 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 10/27/2008 FRANKY ROTOPRINTER, LETTY S 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 10/27/2008 FRANKY ROTOPRINTER, LETTY S 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 10/27/2008 [facility] 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 10/27/2008 [facility] 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 10/27/2008 [facility] 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 10/27/2008 [facility] 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 10/27/2008 WANG ROTOPRINTER, ROBERT 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 10/27/2008 WANG ROTOPRINTER, ROBERT 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 10/27/2008 [facility], [facility] 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 10/27/2008 [facility] 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 10/27/2008 FRANKY ROTOPRINTER, LETTY S 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 10/27/2008 FRANKY ROTOPRINTER, LETTY S 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 10/27/2008 [facility] 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 10/27/2008 [facility] 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 10/27/2008 [facility] 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 10/27/2008 [facility] 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 10/27/2008 [facility] 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 10/27/2008 [facility] 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 10/27/2008 MUOGHALU DDS, WILLARD N 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 10/27/2008 MUOGHALU DDS, WILLARD N 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 11/15/2008 MUOGHALU DDS, WILLARD N 112.1 Vaginitis Elena Albicans 11/15/2008 [facility], [facility] 112.1 Vaginitis Elena Albicans 11/15/2008 112.1 Vaginitis Elena Albicans 11/15/2008 112.1 Vaginitis Elena Albicans 11/15/2008 [facility] 112.1 Vaginitis Elena Albicans 11/15/2008 112.1 Vaginitis Elena Albicans 11/15/2008 112.1 Vaginitis Elena Albicans 11/15/2008 112.1 Vaginitis Elena Albicans 11/15/2008 112.1 Vaginitis Elena Albicans 11/15/2008 112.1 Vaginitis Elena Albicans 11/15/2008 112.1 Vaginitis Elena Albicans 11/15/2008 112.1 Vaginitis Elena Albicans 11/15/2008 112.1 Vaginitis Elena Albicans 11/15/2008 112.1 Vaginitis Elena Albicans 11/15/2008 [facility] 112.1 Vaginitis Elena Albicans 11/15/2008 [facility] 112.1 Vaginitis Elena Albicans 11/15/2008 [facility] 112.1 Vaginitis Elena Albicans 11/15/2008 NATHALIE TORO MD 112.1 Vaginitis Elena Albicans 11/15/2008 [facility] 112.1 Vaginitis Elena Albicans 11/15/2008 EDUARDO COBB JR 112.1 Vaginitis Elena Albicans 11/15/2008 [facility], [facility] 112.1 Vaginitis Elena Albicans 11/15/2008 [facility] 112.1 Vaginitis Elena Albicans 11/15/2008 LETTY WILKINS APRN S 112.1 Vaginitis Elena Albicans 11/15/2008 NATHALIE TORO MD 112.1 Vaginitis Elena Albicans 11/15/2008 [facility], [facility] 112.1 Vaginitis Elena Albicans 11/15/2008 NATHALIE TORO MD 112.1 Vaginitis Elena Albicans 11/15/2008 [facility], [facility] 112.1 Vaginitis Elena Albicans 11/15/2008 [facility], [facility] 112.1 Vaginitis Elena Albicans 11/15/2008 [facility], [facility] 112.1 Vaginitis Elena Albicans 11/15/2008 ROBERT PIÑA APRN 112.1 Vaginitis Elena Albicans 11/15/2008 WANG DAY ROBERT 112.1 Vaginitis Elena Albicans 11/15/2008 ANTONIA WILKINS APRNNDA S 112.1 Vaginitis Elena Albicans 11/15/2008 [facility], [facility] 112.1 Vaginitis Elena Albicans 11/15/2008 [facility], [facility] 112.1 Vaginitis Elena Albicans 11/15/2008 ROBERT PIÑA APRN 112.1 Vaginitis Elena Albicans 11/15/2008 [facility], [facility] 112.1 Vaginitis Elena Albicans 11/15/2008 LETTY WILKINS APRN S 112.1 Vaginitis Elena Albicans 11/15/2008 [facility], [facility] 112.1 Vaginitis Elena Albicans 11/15/2008 [facility] 112.1 Vaginitis Elena Albicans 11/15/2008 [facility] 112.1 Vaginitis Elena Albicans 11/15/2008 KURTOGHALJaime DDS, WILLARD N 112.1 Vaginitis Elena Albicans 12/08/2008 MUOGHALU DDS, WILLARD N 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 [facility]/08/2008 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 12/08/2008 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 12/08/2008 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 12/08/2008 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 12/08/2008 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 12/08/2008 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 12/08/2008 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 12/08/2008 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 12/08/2008 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 12/08/2008 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 12/08/2008 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 12/08/2008 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 12/08/2008 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 12/08/2008 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 12/08/2008 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 12/08/2008 [facility] 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 12/08/2008 NATHALIE TORO MD 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 12/08/2008 [facility] 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 12/08/2008 EDUARDO COBB JR S 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 12/08/2008 [facility] 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 12/08/2008 [facility] 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 12/08/2008 FRANKY ROTOPRINTER, LETTY S 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 12/08/2008 NATHALIE TORO MD 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 12/08/2008 [facility] 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 12/08/2008 NATHALIE TORO MD 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 12/08/2008 [facility] 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 12/08/2008 [facility] 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 12/08/2008 [facility] 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 12/08/2008 WANG ROTOPRINTER, ROBERT 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 12/08/2008 WANG ROTOPRINTER, ROBERT 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 12/08/2008 FRANKY ROTOPRINTER, LETTY S 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 12/08/2008 [facility] 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 12/08/2008 [facility], [facility] 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 12/08/2008 WANG ROTOPRINTER, ROBERT 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 12/08/2008 [facility], [facility] 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 12/08/2008 FRANKY ROTOPRINTER, LETTY S 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 12/08/2008 [facility], [facility] 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 12/08/2008 [facility] 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 12/08/2008 [facility], [facility] 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 12/08/2008 MUOGHALU DDS, WILLARD N 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 12/22/2008 MUOGHALU DDS, WILLARD N 008.8 Gastroenteritis Viral 12/22/2008 [facility], [facility] 008.8 Gastroenteritis Viral 12/22/2008 008.8 Gastroenteritis Viral 12/22/2008 008.8 Gastroenteritis Viral 12/22/2008 [facility], [facility] 008.8 Gastroenteritis Viral 12/22/2008 008.8 Gastroenteritis Viral 12/22/2008 008.8 Gastroenteritis Viral 12/22/2008 008.8 Gastroenteritis Viral 12/22/2008 008.8 Gastroenteritis Viral 12/22/2008 008.8 Gastroenteritis Viral 12/22/2008 008.8 Gastroenteritis Viral 12/22/2008 008.8 Gastroenteritis Viral 12/22/2008 008.8 Gastroenteritis Viral 12/22/2008 008.8 Gastroenteritis Viral 12/22/2008 [facility], [facility] 008.8 Gastroenteritis Viral 12/22/2008 [facility], [facility] 008.8 Gastroenteritis Viral 12/22/2008 [facility], [facility] 008.8 Gastroenteritis Viral 12/22/2008 NATHALIE TORO MD 008.8 Gastroenteritis Viral 12/22/2008 [facility] 008.8 Gastroenteritis Viral 12/22/2008 EDUARDO COBB JR 008.8 Gastroenteritis Viral 12/22/2008 [facility] 008.8 Gastroenteritis Viral 12/22/2008 [facility], [facility] 008.8 Gastroenteritis Viral 12/22/2008 LETTY WILKINS APRN S 008.8 Gastroenteritis Viral 12/22/2008 NATHALIE TORO MD 008.8 Gastroenteritis Viral 12/22/2008 [facility], [facility] 008.8 Gastroenteritis Viral 12/22/2008 NATHALIE TORO MD 008.8 Gastroenteritis Viral 12/22/2008 [facility], [facility] 008.8 Gastroenteritis Viral 12/22/2008 [facility], [facility] 008.8 Gastroenteritis Viral 12/22/2008 [facility] 008.8 Gastroenteritis Viral 12/22/2008 WANG ROTOPRINTER, ROBERT 008.8 Gastroenteritis Viral 12/22/2008 WANG ROTOPRINTER, ROBERT 008.8 Gastroenteritis Viral 12/22/2008 FRANKY ROTOPRINTER, LETTY S 008.8 Gastroenteritis Viral 12/22/2008 [facility], [facility] 008.8 Gastroenteritis Viral 12/22/2008 [facility], [facility] 008.8 Gastroenteritis Viral 12/22/2008 WANG ROTOPRINTER, ROBERT 008.8 Gastroenteritis Viral 12/22/2008 [facility], [facility] 008.8 Gastroenteritis Viral 12/22/2008 FRANKY ROTOPRINTER, LETTY S 008.8 Gastroenteritis Viral 12/22/2008 [facility], [facility] 008.8 Gastroenteritis Viral 12/22/2008 [facility], [facility] 008.8 Gastroenteritis Viral 12/22/2008 [facility] 008.8 Gastroenteritis Viral 12/22/2008 MUOGHALU DDS, WILLARD N 008.8 Gastroenteritis Viral 12/23/2008 MUOGHALU DDS, WILLARD N 276.8 Hypopotassemia 12/23/2008 [facility], [facility] 276.8 Hypopotassemia 12/23/2008 276.8 Hypopotassemia 12/23/2008 276.8 Hypopotassemia 12/23/2008 [facility], [facility] 276.8 Hypopotassemia 12/23/2008 276.8 Hypopotassemia 12/23/2008 276.8 Hypopotassemia 12/23/2008 276.8 Hypopotassemia 12/23/2008 276.8 Hypopotassemia 12/23/2008 276.8 Hypopotassemia 12/23/2008 276.8 Hypopotassemia 12/23/2008 276.8 Hypopotassemia 12/23/2008 276.8 Hypopotassemia 12/23/2008 276.8 Hypopotassemia 12/23/2008 [facility], [facility] 276.8 Hypopotassemia 12/23/2008 [facility], [facility] 276.8 Hypopotassemia 12/23/2008 [facility], [facility] 276.8 Hypopotassemia 12/23/2008 NATHALIE TORO MD 276.8 Hypopotassemia 12/23/2008 [facility], [facility] 276.8 Hypopotassemia 12/23/2008 EDUARDO COBB JR 276.8 Hypopotassemia 12/23/2008 [facility] 276.8 Hypopotassemia 12/23/2008 [facility] 276.8 Hypopotassemia 12/23/2008 FRANKY DAY, LETTY S 276.8 Hypopotassemia 12/23/2008 NATHALIE TOOR MD 276.8 Hypopotassemia 12/23/2008 [facility], [facility] 276.8 Hypopotassemia 12/23/2008 NATHALIE TORO MD 276.8 Hypopotassemia 12/23/2008 [facility], [facility] 276.8 Hypopotassemia 12/23/2008 [facility], [facility] 276.8 Hypopotassemia 12/23/2008 [facility], [facility] 276.8 Hypopotassemia 12/23/2008 WANG ROTOPRINTER, ROBERT 276.8 Hypopotassemia 12/23/2008 WANG ROTOPRINTER, ROBERT 276.8 Hypopotassemia 12/23/2008 FRANKY DAY, LETTY S 276.8 Hypopotassemia 12/23/2008 [facility], [facility] 276.8 Hypopotassemia 12/23/2008 [facility], [facility] 276.8 Hypopotassemia 12/23/2008 WANG ROTOPRINTER, ROBERT 276.8 Hypopotassemia 12/23/2008 [facility], [facility] 276.8 Hypopotassemia 12/23/2008 FRANKY ROTOPRINTER, LETTY S 276.8 Hypopotassemia 12/23/2008 [facility], [facility] 276.8 Hypopotassemia 12/23/2008 [facility], [facility] 276.8 Hypopotassemia 12/23/2008 [facility], [facility] 276.8 Hypopotassemia 12/23/2008 MUOGHALU DDS, WILLARD N 276.8 Hypopotassemia 02/06/2009 MUOGHALU DDS, WILLARD N 346.90 Migraine Unspecified 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 Migraine 02/06/2009 [facility], [facility] 346.90 Migraine Unspecified 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 Migraine 02/06/2009 346.90 Migraine Unspecified 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 Migraine 02/06/2009 346.90 Migraine Unspecified 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 Migraine 02/06/2009 [facility], [facility] 346.90 Migraine Unspecified 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 Migraine 02/06/2009 346.90 Migraine Unspecified 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 Migraine 02/06/2009 346.90 Migraine Unspecified 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 Migraine 02/06/2009 346.90 Migraine Unspecified 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 Migraine 02/06/2009 346.90 Migraine Unspecified 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 Migraine 02/06/2009 346.90 Migraine Unspecified 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 Migraine 02/06/2009 346.90 Migraine Unspecified 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 Migraine 02/06/2009 346.90 Migraine Unspecified 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 Migraine 02/06/2009 346.90 Migraine Unspecified 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 Migraine 02/06/2009 346.90 Migraine Unspecified 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 Migraine 02/06/2009 [facility], [facility] 346.90 Migraine Unspecified 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 Migraine 02/06/2009 [facility], [facility] 346.90 Migraine Unspecified 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 Migraine 02/06/2009 [facility], [facility] 346.90 Migraine Unspecified 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 Migraine 02/06/2009 NATHALIE TORO MD 346.90 Migraine Unspecified 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 Migraine 02/06/2009 [facility], [facility] 346.90 Migraine Unspecified 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 Migraine 02/06/2009 EDUARDO COBB JR 346.90 Migraine Unspecified 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 Migraine 02/06/2009 [facility], [facility] 346.90 Migraine Unspecified 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 Migraine 02/06/2009 [facility] 346.90 Migraine Unspecified 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 Migraine 02/06/2009 FRANKY ROTOPRINTER, LETTY S 346.90 Migraine Unspecified 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 Migraine 02/06/2009 NATHALIE TORO MD 346.90 Migraine Unspecified 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 Migraine 02/06/2009 [facility] 346.90 Migraine Unspecified 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 Migraine 02/06/2009 NATHALIE TORO MD 346.90 Migraine Unspecified 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 Migraine 02/06/2009 [facility], [facility] 346.90 Migraine Unspecified 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 Migraine 02/06/2009 [facility], [facility] 346.90 Migraine Unspecified 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 Migraine 02/06/2009 [facility] 346.90 Migraine Unspecified 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 Migraine 02/06/2009 WANG ROTOPRINTER, ROBERT 346.90 Migraine Unspecified 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 Migraine 02/06/2009 WANG ROTOPRINTER, ROBERT 346.90 Migraine Unspecified 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 Migraine 02/06/2009 FRANKY ROTOPRINTER, LETTY S 346.90 Migraine Unspecified 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 Migraine 02/06/2009 [facility], [facility] 346.90 Migraine Unspecified 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 Migraine 02/06/2009 [facility], [facility] 346.90 Migraine Unspecified 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 Migraine 02/06/2009 ROBERT PIÑA APRN 346.90 Migraine Unspecified 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 Migraine 02/06/2009 [facility], [facility] 346.90 Migraine Unspecified 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 Migraine 02/06/2009 SHEILA WILKINS APRNA S 346.90 Migraine Unspecified 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 Migraine 02/06/2009 [facility], [facility] 346.90 Migraine Unspecified 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 Migraine 02/06/2009 [facility], [facility] 346.90 Migraine Unspecified 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 Migraine 02/06/2009 [facility], [facility] R 346.90 Migraine Unspecified 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 Migraine 02/06/2009 [facility], WILLARD N 346.90 Migraine Unspecified 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 Migraine 02/23/2009 [facility] DDS, WILLADR N 300.02 GENERALIZED ANXIETY DISORDER 02/23/2009 [facility], [facility] R 300.02 GENERALIZED ANXIETY DISORDER 02/23/2009 300.02 GENERALIZED ANXIETY DISORDER 02/23/2009 300.02 GENERALIZED ANXIETY DISORDER 02/23/2009 [facility], [facility] R 300.02 GENERALIZED ANXIETY DISORDER 02/23/2009 300.02 GENERALIZED ANXIETY DISORDER 02/23/2009 300.02 GENERALIZED ANXIETY DISORDER 02/23/2009 300.02 GENERALIZED ANXIETY DISORDER 02/23/2009 300.02 GENERALIZED ANXIETY DISORDER 02/23/2009 300.02 GENERALIZED ANXIETY DISORDER 02/23/2009 300.02 GENERALIZED ANXIETY DISORDER 02/23/2009 300.02 GENERALIZED ANXIETY DISORDER 02/23/2009 300.02 GENERALIZED ANXIETY DISORDER 02/23/2009 300.02 GENERALIZED ANXIETY DISORDER 02/23/2009 [facility], [facility] R 300.02 GENERALIZED ANXIETY DISORDER 02/23/2009 [facility], [facility] R 300.02 GENERALIZED ANXIETY DISORDER 02/23/2009 [facility], [facility] R 300.02 GENERALIZED ANXIETY DISORDER 02/23/2009 NATHALIE TORO MD 300.02 GENERALIZED ANXIETY DISORDER 02/23/2009 [facility], [facility] R 300.02 GENERALIZED ANXIETY DISORDER 02/23/2009 EDUARDO COBB JR 300.02 GENERALIZED ANXIETY DISORDER 02/23/2009 [facility], [facility] R 300.02 GENERALIZED ANXIETY DISORDER 02/23/2009 [facility] 300.02 GENERALIZED ANXIETY DISORDER 02/23/2009 LETTY WILKINS APRN S 300.02 GENERALIZED ANXIETY DISORDER 02/23/2009 NATHALIE TORO MD 300.02 GENERALIZED ANXIETY DISORDER 02/23/2009 [facility], [facility] R 300.02 GENERALIZED ANXIETY DISORDER 02/23/2009 NATHALIE TORO MD 300.02 GENERALIZED ANXIETY DISORDER 02/23/2009 [facility], [facility] R 300.02 GENERALIZED ANXIETY DISORDER 02/23/2009 [facility], [facility] R 300.02 GENERALIZED ANXIETY DISORDER 02/23/2009 [facility], [facility] R 300.02 GENERALIZED ANXIETY DISORDER 02/23/2009 WANG ROTOPRINTER, ROBERT 300.02 GENERALIZED ANXIETY DISORDER 02/23/2009 WANG ROTOPRINTER, ROBERT 300.02 GENERALIZED ANXIETY DISORDER 02/23/2009 SHEILA WILKINS APRNA S 300.02 GENERALIZED ANXIETY DISORDER 02/23/2009 [facility], [facility] R 300.02 GENERALIZED ANXIETY DISORDER 02/23/2009 [facility] 300.02 GENERALIZED ANXIETY DISORDER 02/23/2009 WANG ROTOPRINTER, ROBERT 300.02 GENERALIZED ANXIETY DISORDER 02/23/2009 [facility] 300.02 GENERALIZED ANXIETY DISORDER 02/23/2009 LETTY WILKINS APRN S 300.02 GENERALIZED ANXIETY DISORDER 02/23/2009 [facility] 300.02 GENERALIZED ANXIETY DISORDER 02/23/2009 [facility] 300.02 GENERALIZED ANXIETY DISORDER 02/23/2009 [facility], [facility] R 300.02 GENERALIZED ANXIETY DISORDER 02/23/2009 [facility] DDS, WILLARD N 300.02 GENERALIZED ANXIETY DISORDER 05/16/2009 [facility] DDS, WILLARD N 461.0 Acute Maxillary Sinusitis 05/16/2009 [facility], KVNG R 461.0 Acute Maxillary Sinusitis 05/16/2009 461.0 Acute Maxillary Sinusitis 05/16/2009 461.0 Acute Maxillary [facility] 05/16/2009 [facility] 461.0 Acute Maxillary Sinusitis 05/16/2009 461.0 Acute Maxillary Sinusitis 05/16/2009 461.0 Acute Maxillary Sinusitis 05/16/2009 461.0 Acute Maxillary Sinusitis 05/16/2009 461.0 Acute Maxillary Sinusitis 05/16/2009 461.0 Acute Maxillary Sinusitis 05/16/2009 461.0 Acute Maxillary Sinusitis 05/16/2009 461.0 Acute Maxillary Sinusitis 05/16/2009 461.0 Acute Maxillary Sinusitis 05/16/2009 461.0 Acute Maxillary Sinusitis 05/16/2009 [facility], KVNG R 461.0 Acute Maxillary Sinusitis 05/16/2009 [facility], KVNG R 461.0 Acute Maxillary Sinusitis 05/16/2009 [facility], KVNG R 461.0 Acute Maxillary Sinusitis 05/16/2009 NATHALIE TORO MD 461.0 Acute Maxillary Sinusitis 05/16/2009 [facility], KVNG R 461.0 Acute Maxillary Sinusitis 05/16/2009 EDUARDO COBB JR S 461.0 Acute Maxillary Sinusitis 05/16/2009 [facility], KVNG R 461.0 Acute Maxillary Sinusitis 05/16/2009 [facility], KVNG R 461.0 Acute Maxillary Sinusitis 05/16/2009 FRANKY ROTOPRINTER, LETTY S 461.0 Acute Maxillary Sinusitis 05/16/2009 NATHALIE TORO MD 461.0 Acute Maxillary Sinusitis 05/16/2009 [facility], KVNG R 461.0 Acute Maxillary Sinusitis 05/16/2009 NATHALIE TORO MD 461.0 Acute Maxillary Sinusitis 05/16/2009 [facility], KVNG R 461.0 Acute Maxillary Sinusitis 05/16/2009 [facility], KVNG R 461.0 Acute Maxillary Sinusitis 05/16/2009 [facility], KVNG R 461.0 Acute Maxillary Sinusitis 05/16/2009 WANG ROTOPRINTER, ROBERT 461.0 Acute Maxillary Sinusitis 05/16/2009 WANG ROTOPRINTER, ROBERT 461.0 Acute Maxillary Sinusitis 05/16/2009 FRANKY ROTOPRINTER, LETTY S 461.0 Acute Maxillary Sinusitis 05/16/2009 [facility], KVNG R 461.0 Acute Maxillary Sinusitis 05/16/2009 [facility], KVNG R 461.0 Acute Maxillary Sinusitis 05/16/2009 WANG ROTOPRINTER, ROBERT 461.0 Acute Maxillary Sinusitis 05/16/2009 [facility], KVNG R 461.0 Acute Maxillary Sinusitis 05/16/2009 LETTY WILKINS APRN S 461.0 Acute Maxillary Sinusitis 05/16/2009 [facility], KVNG R 461.0 Acute Maxillary Sinusitis 05/16/2009 [facility], KVNG R 461.0 Acute Maxillary Sinusitis 05/16/2009 [facility], KVNG R 461.0 Acute Maxillary Sinusitis 05/16/2009 MUOGHALU DDS, WILLARD N 461.0 Acute Maxillary Sinusitis 08/10/2009 MUOGHALU DDS, WILLARD N 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 [facility], KVNG R 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 [facility], KVNG R 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 [facility], KVNG R 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 [facility], KNVG R 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 [facility], KVNG R 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 NATHALIE TORO MD 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 [facility], KVNG R 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 EDUARDO COBB JR 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 [facility], KVNG R 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 [facility], KVNG R 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 FRANKY ROTOPRINTER, LETTY S 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 NATHALIE TORO MD 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 [facility], KVNG R 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 NATHALIE TORO MD 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 [facility], KVNG R 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 [facility], KVNG R 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 [facility], KVNG R 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 WANG ROTOPRINTER, ROBERT 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 WANG ROTOPRINTER, ROBERT 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 FRANKY ROTOPRINTER, LETTY S 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 [facility]OG[facility] DDS, WILLARD N 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 10/19/2009 MUOGHALU DDS, WILLARD N 724.3 Sciatica 10/19/2009 [facility], KVNG R 724.3 Sciatica 10/19/2009 724.3 Sciatica 10/19/2009 724.3 Sciatica 10/19/2009 [facility], KVNG R 724.3 Sciatica 10/19/2009 724.3 Sciatica 10/19/2009 724.3 Sciatica 10/19/2009 724.3 Sciatica 10/19/2009 724.3 Sciatica 10/19/2009 724.3 Sciatica 10/19/2009 724.3 Sciatica 10/19/2009 724.3 Sciatica 10/19/2009 724.3 Sciatica 10/19/2009 724.3 Sciatica 10/19/2009 [facility], KVNG R 724.3 Sciatica 10/19/2009 [facility], KVNG R 724.3 Sciatica 10/19/2009 [facility], KVNG R 724.3 Sciatica 10/19/2009 MUNA SAUNDERS, NATHALIE 724.3 Sciatica 10/19/2009 [facility], KVNG R 724.3 Sciatica 10/19/2009 EDUARDO COBB JR S 724.3 Sciatica 10/19/2009 [facility], KVNG R 724.3 Sciatica 10/19/2009 [facility], KVNG R 724.3 Sciatica 10/19/2009 FRANKY ROTOPRINTER, LETTY S 724.3 Sciatica 10/19/2009 MUNA SAUNDERS, NATHALIE 724.3 Sciatica 10/19/2009 [facility], KVNG R 724.3 Sciatica 10/19/2009 NATHALIE TORO MD 724.3 Sciatica 10/19/2009 [facility], KVNG R 724.3 Sciatica 10/19/2009 [facility], KVNG R 724.3 Sciatica 10/19/2009 [facility], KVNG R 724.3 Sciatica 10/19/2009 WANG ROTOPRINTER, ROBERT 724.3 Sciatica 10/19/2009 WANG ROTOPRINTER, ROBERT 724.3 Sciatica 10/19/2009 FRANKY ROTOPRINTER, LETTY S 724.3 Sciatica 10/19/2009 [facility], KVNG R 724.3 Sciatica 10/19/2009 [facility], KVNG R 724.3 Sciatica 10/19/2009 WANG ROTOPRINTER, ROBERT 724.3 Sciatica 10/19/2009 [facility], KVNG R 724.3 Sciatica 10/19/2009 LETTY WILKINS APRN S 724.3 Sciatica 10/19/2009 [facility], KVNG R 724.3 Sciatica 10/19/2009 [facility], KVNG R 724.3 Sciatica 10/19/2009 [facility], KVNG R 724.3 Sciatica 10/19/2009 MUOGHALU DDS, WILLARD N 724.3 Sciatica 08/22/2010 MUOGHALU DDS, WILLARD N 424.0 MITRAL VALVE DISORDERS 08/22/2010 MUOGHALU DDS, WILLARD N 461.8 Other Acute Sinusitis 08/22/2010 [facility], KVNG R 424.0 MITRAL VALVE DISORDERS 08/22/2010 [facility], KVNG R 461.8 Other Acute Sinusitis 08/22/2010 424.0 MITRAL VALVE DISORDERS 08/22/2010 461.8 Other Acute Sinusitis 08/22/2010 424.0 MITRAL VALVE DISORDERS 08/22/2010 461.8 Other Acute Sinusitis 08/22/2010 [facility], KVNG R 424.0 MITRAL VALVE DISORDERS 08/22/2010 [facility], KVNG R 461.8 Other Acute Sinusitis 08/22/2010 424.0 MITRAL VALVE DISORDERS 08/22/2010 461.8 Other Acute Sinusitis 08/22/2010 424.0 MITRAL VALVE DISORDERS 08/22/2010 461.8 Other Acute Sinusitis 08/22/2010 424.0 MITRAL VALVE DISORDERS 08/22/2010 461.8 Other Acute Sinusitis 08/22/2010 424.0 MITRAL VALVE DISORDERS 08/22/2010 461.8 Other Acute Sinusitis 08/22/2010 424.0 MITRAL VALVE DISORDERS 08/22/2010 461.8 Other Acute Sinusitis 08/22/2010 424.0 MITRAL VALVE DISORDERS 08/22/2010 461.8 Other Acute Sinusitis 08/22/2010 424.0 MITRAL VALVE DISORDERS 08/22/2010 461.8 Other Acute Sinusitis 08/22/2010 424.0 MITRAL VALVE DISORDERS 08/22/2010 461.8 Other Acute Sinusitis 08/22/2010 424.0 MITRAL VALVE DISORDERS 08/22/2010 461.8 Other Acute Sinusitis 08/22/2010 [facility], KVNG R 424.0 MITRAL VALVE DISORDERS 08/22/2010 [facility], KVNG R 461.8 Other Acute Sinusitis 08/22/2010 [facility], KVNG R 424.0 MITRAL VALVE DISORDERS 08/22/2010 [facility], KVNG R 461.8 Other Acute Sinusitis 08/22/2010 [facility], KVNG R 424.0 MITRAL VALVE DISORDERS 08/22/2010 [facility], KVNG R 461.8 Other Acute Sinusitis 08/22/2010 NATHALIE TORO MD 424.0 MITRAL VALVE DISORDERS 08/22/2010 NATHALIE TORO MD 461.8 Other Acute Sinusitis 08/22/2010 [facility], KVNG R 424.0 MITRAL VALVE DISORDERS 08/22/2010 [facility], KVNG R 461.8 Other Acute Sinusitis 08/22/2010 REZA ZAPATA EDUARDO S 424.0 MITRAL VALVE DISORDERS 08/22/2010 REZA ZAPATA EDUARDO S 461.8 Other Acute Sinusitis 08/22/2010 [facility], KVNG R 424.0 MITRAL VALVE DISORDERS 08/22/2010 [facility], KVNG R 461.8 Other Acute Sinusitis 08/22/2010 [facility], KVNG R 424.0 MITRAL VALVE DISORDERS 08/22/2010 [facility], KVNG R 461.8 Other Acute Sinusitis 08/22/2010 FRANKY DAY LETTY S 424.0 MITRAL VALVE DISORDERS 08/22/2010 FRANKYJORDAN DAY LETTY S 461.8 Other Acute Sinusitis 08/22/2010 NATHALIE TORO MD 424.0 MITRAL VALVE DISORDERS 08/22/2010 NATHALIE TORO MD 461.8 Other Acute Sinusitis 08/22/2010 [facility], KVNG R 424.0 MITRAL VALVE DISORDERS 08/22/2010 [facility], KVNG R 461.8 Other Acute Sinusitis 08/22/2010 NATHALIE TORO MD 424.0 MITRAL VALVE DISORDERS 08/22/2010 NATHALIE TORO MD 461.8 Other Acute Sinusitis 08/22/2010 [facility], KVNG R 424.0 MITRAL VALVE DISORDERS 08/22/2010 [facility], KVNG R 461.8 Other Acute Sinusitis 08/22/2010 [facility], KVNG R 424.0 MITRAL VALVE DISORDERS 08/22/2010 [facility], KVNG R 461.8 Other Acute Sinusitis 08/22/2010 [facility], KVNG R 424.0 MITRAL VALVE DISORDERS 08/22/2010 [facility], KVNG R 461.8 Other Acute Sinusitis 08/22/2010 WANG ROTOPRINTER, ROBERT 424.0 MITRAL VALVE DISORDERS 08/22/2010 WANG ROTOPRINTER, ROBERT 461.8 Other Acute Sinusitis 08/22/2010 WANG ROTOPRINTER, ROBERT 424.0 MITRAL VALVE DISORDERS 08/22/2010 WANG ROTOPRINTER, ROBERT 461.8 Other Acute Sinusitis 08/22/2010 FRANKY ROTOPRINTER, LETTY S 424.0 MITRAL VALVE DISORDERS 08/22/2010 FRANKY ROTOPRINTER, LETTY S 461.8 Other Acute Sinusitis 08/22/2010 [facility], KVNG R 424.0 MITRAL VALVE DISORDERS 08/22/2010 [facility], KVNG R 461.8 Other Acute Sinusitis 08/22/2010 [facility], KVNG R 424.0 MITRAL VALVE DISORDERS 08/22/2010 [facility], KVNG R 461.8 Other Acute Sinusitis 08/22/2010 WANG ROTOPRINTER, ROBERT 424.0 MITRAL VALVE DISORDERS 08/22/2010 WANG ROTOPRINTER, ROBERT 461.8 Other Acute Sinusitis 08/22/2010 [facility], KVNG R 424.0 MITRAL VALVE DISORDERS 08/22/2010 [facility], KVNG R 461.8 Other Acute Sinusitis 08/22/2010 FRANKY ROTOPRINTER, LETTY S 424.0 MITRAL VALVE DISORDERS 08/22/2010 FRANKY ROTOPRINTER, LETTY S 461.8 Other Acute Sinusitis 08/22/2010 [facility], KVNG R 424.0 MITRAL VALVE DISORDERS 08/22/2010 [facility], KVNG R 461.8 Other Acute Sinusitis 08/22/2010 [facility], KVNG R 424.0 MITRAL VALVE DISORDERS 08/22/2010 [facility], KVNG R 461.8 Other Acute Sinusitis 08/22/2010 [facility], KVNG R 424.0 MITRAL VALVE DISORDERS 08/22/2010 [facility], KVNG R 461.8 Other Acute Sinusitis 08/22/2010 MUOGHALU DDS, WILLARD N 424.0 MITRAL VALVE DISORDERS 08/22/2010 MUOGHALU DDS, WILLARD N 461.8 Other Acute Sinusitis 08/29/2010 MUOGHALU DDS, WILLARD N 401.9 HYPERTENSION, UNSPECIFIED ESSENTIAL 08/29/2010 MUOGHALU DDS, WILLARD N 786.50 Chest Pain 08/29/2010 [facility], KVNG R 401.9 HYPERTENSION, UNSPECIFIED ESSENTIAL 08/29/2010 [facility] 786.50 Chest Pain 08/29/2010 401.9 HYPERTENSION, UNSPECIFIED ESSENTIAL 08/29/2010 786.50 Chest Pain 08/29/2010 401.9 HYPERTENSION, UNSPECIFIED ESSENTIAL 08/29/2010 786.50 Chest Pain 08/29/2010 [facility], KVNG R 401.9 HYPERTENSION, UNSPECIFIED ESSENTIAL 08/29/2010 [facility], KVNG R 786.50 Chest Pain 08/29/2010 401.9 HYPERTENSION, UNSPECIFIED ESSENTIAL 08/29/2010 786.50 Chest Pain 08/29/2010 401.9 HYPERTENSION, UNSPECIFIED ESSENTIAL 08/29/2010 786.50 Chest Pain 08/29/2010 401.9 HYPERTENSION, UNSPECIFIED ESSENTIAL 08/29/2010 786.50 Chest Pain 08/29/2010 401.9 HYPERTENSION, UNSPECIFIED ESSENTIAL 08/29/2010 786.50 Chest Pain 08/29/2010 401.9 HYPERTENSION, UNSPECIFIED ESSENTIAL 08/29/2010 786.50 Chest Pain 08/29/2010 401.9 HYPERTENSION, UNSPECIFIED ESSENTIAL 08/29/2010 786.50 Chest Pain 08/29/2010 401.9 HYPERTENSION, UNSPECIFIED ESSENTIAL 08/29/2010 786.50 Chest Pain 08/29/2010 401.9 HYPERTENSION, UNSPECIFIED ESSENTIAL 08/29/2010 786.50 Chest Pain 08/29/2010 401.9 HYPERTENSION, UNSPECIFIED ESSENTIAL 08/29/2010 786.50 Chest Pain 08/29/2010 [facility], KVNG R 401.9 HYPERTENSION, UNSPECIFIED ESSENTIAL 08/29/2010 [facility] KV[facility] 786.50 Chest Pain 08/29/2010 [facility] KVNG R 401.9 HYPERTENSION, UNSPECIFIED ESSENTIAL 08/29/2010 [facility] KVNG R 786.50 Chest Pain 08/29/2010 [facility] KVNG R 401.9 HYPERTENSION, UNSPECIFIED ESSENTIAL 08/29/2010 [facility] KVNG R 786.50 Chest Pain 08/29/2010 MUNA SAUNDERS, NATHALIE 401.9 HYPERTENSION, UNSPECIFIED ESSENTIAL 08/29/2010 MUNA SAUNDERS, NATHALIE 786.50 Chest Pain 08/29/2010 [facility], KVNG R 401.9 HYPERTENSION, UNSPECIFIED ESSENTIAL 08/29/2010 [facility], KVNG R 786.50 Chest Pain 08/29/2010 REZA JR, EDUARDO S 401.9 HYPERTENSION, UNSPECIFIED ESSENTIAL 08/29/2010 COBB JR, EDUARDO S 786.50 Chest Pain 08/29/2010 [facility], KVNG R 401.9 HYPERTENSION, UNSPECIFIED ESSENTIAL 08/29/2010 [facility], KVNG R 786.50 Chest Pain 08/29/2010 [facility] KV[facility] R 401.9 HYPERTENSION, UNSPECIFIED ESSENTIAL 08/29/2010 [facility] KVNG R 786.50 Chest Pain 08/29/2010 FRANKY ROTOPRINTER, LETTY S 401.9 HYPERTENSION, UNSPECIFIED ESSENTIAL 08/29/2010 FRANKY ROTOPRINTER, LETTY S 786.50 Chest Pain 08/29/2010 MUNA SAUNDERS, NATHALIE 401.9 HYPERTENSION, UNSPECIFIED ESSENTIAL 08/29/2010 MUNA SAUNDERS, NATHALIE 786.50 Chest Pain 08/29/2010 [facility] KVNG R 401.9 HYPERTENSION, UNSPECIFIED ESSENTIAL 08/29/2010 [facility] KVNG R 786.50 Chest Pain 08/29/2010 MUNA SAUNDERS, NATHALIE 401.9 HYPERTENSION, UNSPECIFIED ESSENTIAL 08/29/2010 MUNA SAUNDERS, NATHALIE 786.50 Chest Pain 08/29/2010 [facility] KVNG R 401.9 HYPERTENSION, UNSPECIFIED ESSENTIAL 08/29/2010 [facility] KVNG R 786.50 Chest Pain 08/29/2010 [facility] KVNG R 401.9 HYPERTENSION, UNSPECIFIED ESSENTIAL 08/29/2010 [facility] KVNG R 786.50 Chest Pain 08/29/2010 [facility] KVNG R 401.9 HYPERTENSION, UNSPECIFIED ESSENTIAL 08/29/2010 [facility], KVNG R 786.50 Chest Pain 08/29/2010 WANG ROTOPRINTER, ROBERT 401.9 HYPERTENSION, UNSPECIFIED ESSENTIAL 08/29/2010 WANG ROTOPRINTER, ROBERT 786.50 Chest Pain 08/29/2010 WANG ROTOPRINTER, ROBERT 401.9 HYPERTENSION, UNSPECIFIED ESSENTIAL 08/29/2010 WANG ROTOPRINTER, ROBERT 786.50 Chest Pain 08/29/2010 FRANKY ROTOPRINTER, LETTY S 401.9 HYPERTENSION, UNSPECIFIED ESSENTIAL 08/29/2010 FRANKY ROTOPRINTER, LETTY S 786.50 Chest Pain 08/29/2010 [facility], KVNG R 401.9 HYPERTENSION, UNSPECIFIED ESSENTIAL 08/29/2010 [facility], KVNG R 786.50 Chest Pain 08/29/2010 [facility], KVNG R 401.9 HYPERTENSION, UNSPECIFIED ESSENTIAL 08/29/2010 [facility], KVNG R 786.50 Chest Pain 08/29/2010 WANG ROTOPRINTER, ROBERT 401.9 HYPERTENSION, UNSPECIFIED ESSENTIAL 08/29/2010 WANG ROTOPRINTER, ROBERT 786.50 Chest Pain 08/29/2010 [facility], KVNG R 401.9 HYPERTENSION, UNSPECIFIED ESSENTIAL 08/29/2010 [facility] 786.50 Chest Pain 08/29/2010 FRANKY ROTOPRINTER, LETTY S 401.9 HYPERTENSION, UNSPECIFIED ESSENTIAL 08/29/2010 FRANKY ROTOPRINTER, LETTY S 786.50 Chest Pain 08/29/2010 [facility], KVNG R 401.9 HYPERTENSION, UNSPECIFIED ESSENTIAL 08/29/2010 [facility] KV[facility] R 786.50 Chest Pain 08/29/2010 [facility] KVNG R 401.9 HYPERTENSION, UNSPECIFIED ESSENTIAL 08/29/2010 [facility] KVNG R 786.50 Chest Pain 08/29/2010 [facility] KVNG R 401.9 HYPERTENSION, UNSPECIFIED ESSENTIAL 08/29/2010 [facility] KVNG R 786.50 Chest Pain 08/29/2010 MUOGHALU DDS, WILLARD N 401.9 HYPERTENSION, UNSPECIFIED ESSENTIAL 08/29/2010 MUOGHALU DDS, WILLARD N 786.50 Chest Pain 08/30/2010 Ot 300.00 ANXIETY STATE NOS 08/30/2010 Ot 305.1 TOBACCO USE DISORDER 08/30/2010 Ot 346.90 MIGRAINE UNSPECIFIED W/O INTRACT MGRN W/ 08/30/2010 Ot 401.9 HYPERTENSION NOS 08/30/2010 Ot 424.0 MITRAL VALVE DISORDER 08/30/2010 Ot 455.0 INT HEMORRHOID W/O COMPL 08/30/2010 Ot 455.3 EXT HEMORRHOID W/O COMPL 08/30/2010 Ot 562.10 DIVERTICULOSIS COLON (W/O MENT OF HEMORR 08/30/2010 Ot 564.1 IRRITABLE BOWEL SYNDROME 08/30/2010 Ot 780.39 OTHER CONVULSIONS 08/30/2010 Ot 786.59 CHEST PAIN NEC 10/31/2010 MANASA ROCHA, WILLARD N 780.2 Syncope And Collapse 10/31/2010 [facility], KVNG R 780.2 Syncope And Collapse 10/31/2010 780.2 Syncope And Collapse 10/31/2010 780.2 Syncope And Collapse 10/31/2010 [facility], KVNG R 780.2 Syncope And Collapse 10/31/2010 780.2 Syncope And Collapse 10/31/2010 780.2 Syncope And Collapse 10/31/2010 780.2 Syncope And Collapse 10/31/2010 780.2 Syncope And Collapse 10/31/2010 780.2 Syncope And Collapse 10/31/2010 780.2 Syncope And Collapse 10/31/2010 780.2 Syncope And Collapse 10/31/2010 780.2 Syncope And Collapse 10/31/2010 780.2 Syncope And Collapse 10/31/2010 [facility], KVNG R 780.2 Syncope And Collapse 10/31/2010 [facility], KVNG R 780.2 Syncope And Collapse 10/31/2010 [facility], KVNG R 780.2 Syncope And Collapse 10/31/2010 NATHALIE TORO MD 780.2 Syncope And Collapse 10/31/2010 [facility], KVNG R 780.2 Syncope And Collapse 10/31/2010 EDUARDO COBB JR 780.2 Syncope And Collapse 10/31/2010 [facility], KVNG R 780.2 Syncope And Collapse 10/31/2010 [facility], KVNG R 780.2 Syncope And Collapse 10/31/2010 LETTY WILKINS APRN 780.2 Syncope And Collapse 10/31/2010 NATHALIE TORO MD 780.2 Syncope And Collapse 10/31/2010 [facility], KVNG R 780.2 Syncope And Collapse 10/31/2010 NATHALIE TORO MD 780.2 Syncope And Collapse 10/31/2010 [facility], KVNG R 780.2 Syncope And Collapse 10/31/2010 [facility], KVNG R 780.2 Syncope And Collapse 10/31/2010 [facility], KVNG R 780.2 Syncope And Collapse 10/31/2010 WANG ROTOPRINTER, ROBERT 780.2 Syncope And Collapse 10/31/2010 WANG ROTOPRINTER, ROBERT 780.2 Syncope And Collapse 10/31/2010 FRANKY ROTOPRINTER, LETTY S 780.2 Syncope And Collapse 10/31/2010 [facility], KVNG R 780.2 Syncope And Collapse 10/31/2010 [facility], KVNG R 780.2 Syncope And Collapse 10/31/2010 WANG ROTOPRINTER, ROBERT 780.2 Syncope And Collapse 10/31/2010 [facility] CS, KVNG R 780.2 Syncope And Collapse 10/31/2010 FRANKY ROTOPRINTER, LETTY S 780.2 Syncope And Collapse 10/31/2010 [facility], KVNG R 780.2 Syncope And Collapse 10/31/2010 [facility], KVNG R 780.2 Syncope And Collapse 10/31/2010 [facility], KVNG R 780.2 Syncope And Collapse 10/31/2010 MUOGHALU DDS, WILLARD N 780.2 Syncope And Collapse 01/10/2011 MUOGHALU DDS, WILLARD N 305.1 Nicotine Dependence 01/10/2011 MUOGHALU DDS, WILLARD N 380.10 Otitis Externa 01/10/2011 MUOGHALU DDS, WILLARD N 382.9 Otitis Media 01/10/2011 [facility], KVNG R 305.1 Nicotine Dependence 01/10/2011 [facility], KVNG R 380.10 Otitis Externa 01/10/2011 [facility], KVNG R 382.9 Otitis Media 01/10/2011 305.1 Nicotine Dependence 01/10/2011 380.10 Otitis Externa 01/10/2011 382.9 Otitis Media 01/10/2011 305.1 Nicotine Dependence 01/10/2011 380.10 Otitis Externa 01/10/2011 382.9 Otitis Media 01/10/2011 [facility] KVNG R 305.1 Nicotine Dependence 01/10/2011 [facility] KVNG R 380.10 Otitis Externa 01/10/2011 [facility], KVNG R 382.9 Otitis Media 01/10/2011 305.1 Nicotine Dependence 01/10/2011 380.10 Otitis Externa 01/10/2011 382.9 Otitis Media 01/10/2011 305.1 Nicotine Dependence 01/10/2011 380.10 Otitis Externa 01/10/2011 382.9 Otitis Media 01/10/2011 305.1 Nicotine Dependence 01/10/2011 380.10 Otitis Externa 01/10/2011 382.9 Otitis Media 01/10/2011 305.1 Nicotine Dependence 01/10/2011 380.10 Otitis Externa 01/10/2011 382.9 Otitis Media 01/10/2011 305.1 Nicotine Dependence 01/10/2011 380.10 Otitis Externa 01/10/2011 382.9 Otitis Media 01/10/2011 305.1 Nicotine Dependence 01/10/2011 380.10 Otitis Externa 01/10/2011 382.9 Otitis Media 01/10/2011 305.1 Nicotine Dependence 01/10/2011 380.10 Otitis Externa 01/10/2011 382.9 Otitis Media 01/10/2011 305.1 Nicotine Dependence 01/10/2011 380.10 Otitis Externa 01/10/2011 382.9 Otitis Media 01/10/2011 305.1 Nicotine Dependence 01/10/2011 380.10 Otitis Externa 01/10/2011 382.9 Otitis Media 01/10/2011 [facility], KVNG R 305.1 Nicotine Dependence 01/10/2011 [facility], KVNG R 380.10 Otitis Externa 01/10/2011 [facility], KVNG R 382.9 Otitis Media 01/10/2011 [facility], KVNG R 305.1 Nicotine Dependence 01/10/2011 [facility] CS, KVNG R 380.10 Otitis Externa 01/10/2011 [facility], KVNG R 382.9 Otitis Media 01/10/2011 [facility], KVNG R 305.1 Nicotine Dependence 01/10/2011 [facility] 380.10 Otitis Externa 01/10/2011 [facility] KV[facility] 382.9 Otitis Media 01/10/2011 NATHALIE TORO MD 305.1 Nicotine Dependence 01/10/2011 NATHALIE TORO MD 380.10 Otitis Externa 01/10/2011 NATHALIE TORO MD 382.9 Otitis Media 01/10/2011 [facility], KVNG R 305.1 Nicotine Dependence 01/10/2011 [facility], KVNG R 380.10 Otitis Externa 01/10/2011 [facility], KVNG R 382.9 Otitis Media 01/10/2011 COBB JR, EDUARDO S 305.1 Nicotine Dependence 01/10/2011 EDUARDO COBB JR S 380.10 Otitis Externa 01/10/2011 EDUARDO COBB JR S 382.9 Otitis Media 01/10/2011 [facility], KVNG R 305.1 Nicotine Dependence 01/10/2011 [facility], KVNG R 380.10 Otitis Externa 01/10/2011 [facility], KVNG R 382.9 Otitis Media 01/10/2011 [facility], KVNG R 305.1 Nicotine Dependence 01/10/2011 [facility], KVNG R 380.10 Otitis Externa 01/10/2011 [facility], KVNG R 382.9 Otitis Media 01/10/2011 FRANKY ROTOPRINTER, LETTY S 305.1 Nicotine Dependence 01/10/2011 FRANKY ROTOPRINTER, LETTY S 380.10 Otitis Externa 01/10/2011 FRANKY ROTOPRINTER, LETTY S 382.9 Otitis Media 01/10/2011 NATHALIE TORO MD 305.1 Nicotine Dependence 01/10/2011 NATHALIE TORO MD 380.10 Otitis Externa 01/10/2011 NATHALIE TORO MD 382.9 Otitis Media 01/10/2011 [facility], KVNG R 305.1 Nicotine Dependence 01/10/2011 [facility], KVNG R 380.10 Otitis Externa 01/10/2011 [facility], KVNG R 382.9 Otitis Media 01/10/2011 NATHALIE TORO MD 305.1 Nicotine Dependence 01/10/2011 NATHALIE TORO MD 380.10 Otitis Externa 01/10/2011 NATHALIE TORO MD 382.9 Otitis Media 01/10/2011 [facility], KVNG R 305.1 Nicotine Dependence 01/10/2011 [facility], KVNG R 380.10 Otitis Externa 01/10/2011 [facility], KVNG R 382.9 Otitis Media 01/10/2011 [facility], KVNG R 305.1 Nicotine Dependence 01/10/2011 [facility], KVNG R 380.10 Otitis Externa 01/10/2011 [facility], KVNG R 382.9 Otitis Media 01/10/2011 [facility], KVNG R 305.1 Nicotine Dependence 01/10/2011 [facility], KVNG R 380.10 Otitis Externa 01/10/2011 [facility], KVNG R 382.9 Otitis Media 01/10/2011 WANG ROTOPRINTER, ROBERT 305.1 Nicotine Dependence 01/10/2011 WANG ROTOPRINTER, ROBERT 380.10 Otitis Externa 01/10/2011 WANG ROTOPRINTER, ROBERT 382.9 Otitis Media 01/10/2011 WANG ROTOPRINTER, ROBERT 305.1 Nicotine Dependence 01/10/2011 WANG ROTOPRINTER, ROBERT 380.10 Otitis Externa 01/10/2011 WANG ROTOPRINTER, ROBERT 382.9 Otitis Media 01/10/2011 FRANKY ROTOPRINTER, LETTY S 305.1 Nicotine Dependence 01/10/2011 FRANKY ROTOPRINTER, LETTY S 380.10 Otitis Externa 01/10/2011 FRANKY ROTOPRINTER, LETTY S 382.9 Otitis Media 01/10/2011 [facility], KVNG R 305.1 Nicotine Dependence 01/10/2011 [facility], KVNG R 380.10 Otitis Externa 01/10/2011 [facility], KVNG R 382.9 Otitis Media 01/10/2011 [facility], KVNG R 305.1 Nicotine Dependence 01/10/2011 [facility], KVNG R 380.10 Otitis Externa 01/10/2011 [facility], KVNG R 382.9 Otitis Media 01/10/2011 WANG ROTOPRINTER, ROBERT 305.1 Nicotine Dependence 01/10/2011 WANG ROTOPRINTER, ROBERT 380.10 Otitis Externa 01/10/2011 WANG ROTOPRINTER, ROBERT 382.9 Otitis Media 01/10/2011 [facility], KVNG R 305.1 Nicotine Dependence 01/10/2011 [facility], KVNG R 380.10 Otitis Externa 01/10/2011 [facility], KVNG R 382.9 Otitis Media 01/10/2011 FRANKY ROTOPRINTER, LETTY S 305.1 Nicotine Dependence 01/10/2011 FRANKY ROTOPRINTER, LETTY S 380.10 Otitis Externa 01/10/2011 FRANKY ROTOPRINTER, LETTY S 382.9 Otitis Media 01/10/2011 [facility], KVNG R 305.1 Nicotine Dependence 01/10/2011 [facility], KVNG R 380.10 Otitis Externa 01/10/2011 [facility], KVNG R 382.9 Otitis Media 01/10/2011 [facility] 305.1 Nicotine Dependence 01/10/2011 [facility], KVNG R 380.10 Otitis Externa 01/10/2011 [facility], KVNG R 382.9 Otitis Media 01/10/2011 [facility], KVNG R 305.1 Nicotine Dependence 01/10/2011 [facility], KVNG R 380.10 Otitis Externa 01/10/2011 [facility], KVNG R 382.9 Otitis Media 01/10/2011 MUOGHALU DDS, WILLARD N 305.1 Nicotine Dependence 01/10/2011 MUOGHALU DDS, WILLARD N 380.10 Otitis Externa 01/10/2011 MUOGHALU DDS, WILLARD N 382.9 Otitis Media 04/19/2011 MUOGHALU DDS, WILLARD N 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 04/19/2011 [facility] KNIGHT R 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 04/19/2011 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 04/19/2011 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 04/19/2011 [facility] KNIGHT R 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 04/19/2011 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 04/19/2011 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 04/19/2011 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 04/19/2011 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 04/19/2011 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 04/19/2011 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 04/19/2011 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 04/19/2011 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 04/19/2011 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 04/19/2011 [facility] KNIGHT R 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 04/19/2011 [facility] KNIGHT R 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 04/19/2011 [facility] KNIGHT R 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 04/19/2011 NATHALIE TORO MD 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 04/19/2011 [facility], KVNG R 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 04/19/2011 EDUARDO COBB JR 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 04/19/2011 [facility], KVNG R 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 04/19/2011 [facility], KVNG R 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 04/19/2011 LETTY WILKINS APRN S 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 04/19/2011 NATHALIE TORO MD 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 04/19/2011 [facility], KVNG R 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 04/19/2011 NATHALIE TORO MD 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 04/19/2011 [facility], KVNG R 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 04/19/2011 [facility], KVNG R 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 04/19/2011 [facility], KVNG R 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 04/19/2011 WANG ROTOPRINTER, ROBERT 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 04/19/2011 WANG ROTOPRINTER, ROBERT 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 04/19/2011 LETTY WILKINS APRN S 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 04/19/2011 [facility], KVNG R 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 04/19/2011 [facility], KVNG R 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 04/19/2011 WANG ROTOPRINTER, ROBERT 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 04/19/2011 [facility], KVNG R 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 04/19/2011 FRANKY ROTOPRINTERANTONIALETTY S 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 04/19/2011 [facility], KVNG R 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 04/19/2011 [facility], KVNG R 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 04/19/2011 [facility], KVNG R 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 04/19/2011 MUOGHALU DDS, WILLARD N 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 06/17/2011 MUOGHALU DDS, WILLARD N 787.01 NAUSEA WITH VOMITING 06/17/2011 MUOGHALU DDS, WILLARD N V04.81 Flu Dx (3 Yrs And Above, Im) 06/17/2011 [facility], KVNG R 787.01 NAUSEA WITH VOMITING 06/17/2011 [facility], KVNG R V04.81 Flu Dx (3 Yrs And Above, Im) 06/17/2011 787.01 NAUSEA WITH VOMITING 06/17/2011 V04.81 Flu Dx (3 Yrs And Above, Im) 06/17/2011 787.01 NAUSEA WITH VOMITING 06/17/2011 V04.81 Flu Dx (3 Yrs And Above, Im) 06/17/2011 [facility], KVNG R 787.01 NAUSEA WITH VOMITING 06/17/2011 [facility], KVNG R V04.81 Flu Dx (3 Yrs And Above, Im) 06/17/2011 787.01 NAUSEA WITH VOMITING 06/17/2011 V04.81 Flu Dx (3 Yrs And Above, Im) 06/17/2011 787.01 NAUSEA WITH VOMITING 06/17/2011 V04.81 Flu Dx (3 Yrs And Above, Im) 06/17/2011 787.01 NAUSEA WITH VOMITING 06/17/2011 V04.81 Flu Dx (3 Yrs And Above, Im) 06/17/2011 787.01 NAUSEA WITH VOMITING 06/17/2011 V04.81 Flu Dx (3 Yrs And Above, Im) 06/17/2011 787.01 NAUSEA WITH VOMITING 06/17/2011 V04.81 Flu Dx (3 Yrs And Above, Im) 06/17/2011 787.01 NAUSEA WITH VOMITING 06/17/2011 V04.81 Flu Dx (3 Yrs And Above, Im) 06/17/2011 787.01 NAUSEA WITH VOMITING 06/17/2011 V04.81 Flu Dx (3 Yrs And Above, Im) 06/17/2011 787.01 NAUSEA WITH VOMITING 06/17/2011 V04.81 Flu Dx (3 Yrs And Above, Im) 06/17/2011 787.01 NAUSEA WITH VOMITING 06/17/2011 V04.81 Flu Dx (3 Yrs And Above, Im) 06/17/2011 [facility], KVNG R 787.01 NAUSEA WITH VOMITING 06/17/2011 [facility], KVNG R V04.81 Flu Dx (3 Yrs And Above, Im) 06/17/2011 [facility], KVNG R 787.01 NAUSEA WITH VOMITING 06/17/2011 [facility], KVNG R V04.81 Flu Dx (3 Yrs And Above, Im) 06/17/2011 [facility], KVNG R 787.01 NAUSEA WITH VOMITING 06/17/2011 [facility], KVNG R V04.81 Flu Dx (3 Yrs And Above, Im) 06/17/2011 NATHALIE TORO MD 787.01 NAUSEA WITH VOMITING 06/17/2011 NATHALIE TORO MD V04.81 Flu Dx (3 Yrs And Above, Im) 06/17/2011 [facility], KVNG R 787.01 NAUSEA WITH VOMITING 06/17/2011 [facility], KVNG R V04.81 Flu Dx (3 Yrs And Above, Im) 06/17/2011 EDUARDO COBB JR 787.01 NAUSEA WITH VOMITING 06/17/2011 EDUARDO COBB JR V04.81 Flu Dx (3 Yrs And Above, Im) 06/17/2011 [facility] 787.01 NAUSEA WITH VOMITING 06/17/2011 [facility], KVNG R V04.81 Flu Dx (3 Yrs And Above, Im) 06/17/2011 [facility], KVNG R 787.01 NAUSEA WITH VOMITING 06/17/2011 [facility], KVNG R V04.81 Flu Dx (3 Yrs And Above, Im) 06/17/2011 LETTY WILKINS APRN S 787.01 NAUSEA WITH VOMITING 06/17/2011 LETTY WILKINS APRN S V04.81 Flu Dx (3 Yrs And Above, Im) 06/17/2011 NATHALIE TORO MD 787.01 NAUSEA WITH VOMITING 06/17/2011 NATHALIE TORO MD V04.81 Flu Dx (3 Yrs And Above, Im) 06/17/2011 [facility], KVNG R 787.01 NAUSEA WITH VOMITING 06/17/2011 [facility], KVNG R V04.81 Flu Dx (3 Yrs And Above, Im) 06/17/2011 NATHALIE TORO MD 787.01 NAUSEA WITH VOMITING 06/17/2011 NATHALIE OTRO MD V04.81 Flu Dx (3 Yrs And Above, Im) 06/17/2011 [facility], KVNG R 787.01 NAUSEA WITH VOMITING 06/17/2011 [facility], KVNG R V04.81 Flu Dx (3 Yrs And Above, Im) 06/17/2011 [facility], KVNG R 787.01 NAUSEA WITH VOMITING 06/17/2011 [facility], KVNG R V04.81 Flu Dx (3 Yrs And Above, Im) 06/17/2011 [facility], KVNG R 787.01 NAUSEA WITH VOMITING 06/17/2011 [facility], KVNG R V04.81 Flu Dx (3 Yrs And Above, Im) 06/17/2011 WANG ROTOPRINTER, ROBERT 787.01 NAUSEA WITH VOMITING 06/17/2011 WANG ROTOPRINTER, ROBERT V04.81 Flu Dx (3 Yrs And Above, Im) 06/17/2011 WANG ROTOPRINTER, ROBERT 787.01 NAUSEA WITH VOMITING 06/17/2011 WANG ROTOPRINTER, ROBERT V04.81 Flu Dx (3 Yrs And Above, Im) 06/17/2011 FRANKY ROTOPRINTER, LETTY S 787.01 NAUSEA WITH VOMITING 06/17/2011 FRANKY ROTOPRINTERANTONIA VazquezNDA S V04.81 Flu Dx (3 Yrs And Above, Im) 06/17/2011 [facility], KVNG R 787.01 NAUSEA WITH VOMITING 06/17/2011 [facility], KVNG R V04.81 Flu Dx (3 Yrs And Above, Im) 06/17/2011 [facility], KVNG R 787.01 NAUSEA WITH VOMITING 06/17/2011 [facility], KVNG R V04.81 Flu Dx (3 Yrs And Above, Im) 06/17/2011 WANG ROTOPRINTER, ROBERT 787.01 NAUSEA WITH VOMITING 06/17/2011 WANG ROTOPRINTER, ROBERT V04.81 Flu Dx (3 Yrs And Above, Im) 06/17/2011 [facility], KVNG R 787.01 NAUSEA WITH VOMITING 06/17/2011 [facility], KVNG R V04.81 Flu Dx (3 Yrs And Above, Im) 06/17/2011 FRANKY ROTOPRINTER, LETTY S 787.01 NAUSEA WITH VOMITING 06/17/2011 FRANKY ROTOPRINTER, LETTY S V04.81 Flu Dx (3 Yrs And Above, Im) 06/17/2011 [facility], KVNG R 787.01 NAUSEA WITH VOMITING 06/17/2011 [facility], KVNG R V04.81 Flu Dx (3 Yrs And Above, Im) 06/17/2011 [facility], KVNG R 787.01 NAUSEA WITH VOMITING 06/17/2011 [facility], KVNG R V04.81 Flu Dx (3 Yrs And Above, Im) 06/17/2011 [facility] 787.01 NAUSEA WITH VOMITING 06/17/2011 [facility] V04.81 Flu Dx (3 Yrs And Above, Im) 06/17/2011 MUOGHALU DDS, WILLARD N 787.01 NAUSEA WITH VOMITING 06/17/2011 MUOGHALU DDS, WILLARD N V04.81 Flu Dx (3 Yrs And Above, Im) 06/24/2011 MUOGHALU DDS, WILLARD N 611.72 Breast Lump Or Mass 06/24/2011 [facility], KVNG R 611.72 Breast Lump Or Mass 06/24/2011 611.72 Breast Lump Or Mass 06/24/2011 611.72 Breast Lump Or Mass 06/24/2011 [facility], KVNG R 611.72 Breast Lump Or Mass 06/24/2011 611.72 Breast Lump Or Mass 06/24/2011 611.72 Breast Lump Or Mass 06/24/2011 611.72 Breast Lump Or Mass 06/24/2011 611.72 Breast Lump Or Mass 06/24/2011 611.72 Breast Lump Or Mass 06/24/2011 611.72 Breast Lump Or Mass 06/24/2011 611.72 Breast Lump Or Mass 06/24/2011 611.72 Breast Lump Or Mass 06/24/2011 611.72 Breast Lump Or Mass 06/24/2011 [facility], KVNG R 611.72 Breast Lump Or Mass 06/24/2011 [facility], KVNG R 611.72 Breast Lump Or Mass 06/24/2011 [facility], KVNG R 611.72 Breast Lump Or Mass 06/24/2011 NATHALIE TORO MD 611.72 Breast Lump Or Mass 06/24/2011 [facility], KVNG R 611.72 Breast Lump Or Mass 06/24/2011 EDUARDO COBB JR S 611.72 Breast Lump Or Mass 06/24/2011 [facility], KVNG R 611.72 Breast Lump Or Mass 06/24/2011 [facility], KVNG R 611.72 Breast Lump Or Mass 06/24/2011 FRANKY ROTOPRINTER, LETTY S 611.72 Breast Lump Or Mass 06/24/2011 NATHALIE TORO MD 611.72 Breast Lump Or Mass 06/24/2011 [facility], KVNG R 611.72 Breast Lump Or Mass 06/24/2011 NATHALIE TORO MD 611.72 Breast Lump Or Mass 06/24/2011 [facility], KVNG R 611.72 Breast Lump Or Mass 06/24/2011 [facility], KVNG R 611.72 Breast Lump Or Mass 06/24/2011 [facility], KVNG R 611.72 Breast Lump Or Mass 06/24/2011 WANG ROTOPRINTER, ROBERT 611.72 Breast Lump Or Mass 06/24/2011 WANG ROTOPRINTER, ROBERT 611.72 Breast Lump Or Mass 06/24/2011 FRANKY ROTOPRINTER, LETTY S 611.72 Breast Lump Or Mass 06/24/2011 [facility], KVNG R 611.72 Breast Lump Or Mass 06/24/2011 [facility], KVNG R 611.72 Breast Lump Or Mass 06/24/2011 WANG ROTOPRINTER, ROBERT 611.72 Breast Lump Or Mass 06/24/2011 [facility], KVNG R 611.72 Breast Lump Or Mass 06/24/2011 FRANKY ROTOPRINTER, LETTY S 611.72 Breast Lump Or Mass 06/24/2011 [facility], KVNG R 611.72 Breast Lump Or Mass 06/24/2011 [facility], KVNG R 611.72 Breast Lump Or Mass 06/24/2011 [facility], KVNG R 611.72 Breast Lump Or Mass 06/24/2011 MUOGHALU DDS, WILLARD N 611.72 Breast Lump Or Mass 07/01/2011 MUOGHALU DDS, WILLARD N 783.21 Weight Loss 07/01/2011 MUOGHALU DDS, WILLARD N 787.1 Heartburn 07/01/2011 MUOGHALU DDS, WILLARD N 787.3 Gas/bloating Pain 07/01/2011 MUOG[facility]U DDS, WILLARD N 789.00 Abdominal Pain Unspecified Site 07/01/2011 MUOGHALU DDS, WILLARD N 789.06 Abdominal Pain Epigastric 07/01/2011 [facility], KVNG R 783.21 Weight Loss 07/01/2011 [facility], KVNG R 787.1 Heartburn 07/01/2011 [facility], KVNG R 787.3 Gas/bloating Pain 07/01/2011 [facility], KVNG R 789.00 Abdominal Pain Unspecified Site 07/01/2011 [facility], KVNG R 789.06 Abdominal Pain Epigastric 07/01/2011 783.21 Weight Loss 07/01/2011 787.1 Heartburn 07/01/2011 787.3 Gas/bloating Pain 07/01/2011 789.00 Abdominal Pain Unspecified Site 07/01/2011 789.06 Abdominal Pain Epigastric 07/01/2011 783.21 Weight Loss 07/01/2011 787.1 Heartburn 07/01/2011 787.3 Gas/bloating Pain 07/01/2011 789.00 Abdominal Pain Unspecified Site 07/01/2011 789.06 Abdominal Pain Epigastric 07/01/2011 [facility], KVNG R 783.21 Weight Loss 07/01/2011 [facility] 787.1 Heartburn 07/01/2011 [facility] 787.3 Gas/bloating Pain 07/01/2011 [facility], KVNG R 789.00 Abdominal Pain Unspecified Site 07/01/2011 [facility], KVNG Rangel 789.06 Abdominal Pain Epigastric 07/01/2011 783.21 Weight Loss 07/01/2011 787.1 Heartburn 07/01/2011 787.3 Gas/bloating Pain 07/01/2011 789.00 Abdominal Pain Unspecified Site 07/01/2011 789.06 Abdominal Pain Epigastric 07/01/2011 783.21 Weight Loss 07/01/2011 787.1 Heartburn 07/01/2011 787.3 Gas/bloating Pain 07/01/2011 789.00 Abdominal Pain Unspecified Site 07/01/2011 789.06 Abdominal Pain Epigastric 07/01/2011 783.21 Weight Loss 07/01/2011 787.1 Heartburn 07/01/2011 787.3 Gas/bloating Pain 07/01/2011 789.00 Abdominal Pain Unspecified Site 07/01/2011 789.06 Abdominal Pain Epigastric 07/01/2011 783.21 Weight Loss 07/01/2011 787.1 Heartburn 07/01/2011 787.3 Gas/bloating Pain 07/01/2011 789.00 Abdominal Pain Unspecified Site 07/01/2011 789.06 Abdominal Pain Epigastric 07/01/2011 783.21 Weight Loss 07/01/2011 787.1 Heartburn 07/01/2011 787.3 Gas/bloating Pain 07/01/2011 789.00 Abdominal Pain Unspecified Site 07/01/2011 789.06 Abdominal Pain Epigastric 07/01/2011 783.21 Weight Loss 07/01/2011 787.1 Heartburn 07/01/2011 787.3 Gas/bloating Pain 07/01/2011 789.00 Abdominal Pain Unspecified Site 07/01/2011 789.06 Abdominal Pain Epigastric 07/01/2011 783.21 Weight Loss 07/01/2011 787.1 Heartburn 07/01/2011 787.3 Gas/bloating Pain 07/01/2011 789.00 Abdominal Pain Unspecified Site 07/01/2011 789.06 Abdominal Pain Epigastric 07/01/2011 783.21 Weight Loss 07/01/2011 787.1 Heartburn 07/01/2011 787.3 Gas/bloating Pain 07/01/2011 789.00 Abdominal Pain Unspecified Site 07/01/2011 789.06 Abdominal Pain Epigastric 07/01/2011 783.21 Weight Loss 07/01/2011 787.1 Heartburn 07/01/2011 787.3 Gas/bloating Pain 07/01/2011 789.00 Abdominal Pain Unspecified Site 07/01/2011 789.06 Abdominal Pain Epigastric 07/01/2011 [facility], KVNG R 783.21 Weight Loss 07/01/2011 [facility], KVNG R 787.1 Heartburn 07/01/2011 [facility], KVNG R 787.3 Gas/bloating Pain 07/01/2011 [facility], KVNG R 789.00 Abdominal Pain Unspecified Site 07/01/2011 [facility], KVNG R 789.06 Abdominal Pain Epigastric 07/01/2011 [facility], KVNG R 783.21 Weight Loss 07/01/2011 [facility], KVNG R 787.1 Heartburn 07/01/2011 [facility], KVNG R 787.3 Gas/bloating Pain 07/01/2011 [facility], KVNG R 789.00 Abdominal Pain Unspecified Site 07/01/2011 [facility], KVNG R 789.06 Abdominal Pain Epigastric 07/01/2011 [facility], KVNG R 783.21 Weight Loss 07/01/2011 [facility], KVNG R 787.1 Heartburn 07/01/2011 [facility], KVNG R 787.3 Gas/bloating Pain 07/01/2011 [facility], KVNG R 789.00 Abdominal Pain Unspecified Site 07/01/2011 [facility], KVNG R 789.06 Abdominal Pain Epigastric 07/01/2011 NATHALIE TORO MD 783.21 Weight Loss 07/01/2011 NATHALIE TORO MD 787.1 Heartburn 07/01/2011 NATHALIE TORO MD 787.3 Gas/bloating Pain 07/01/2011 NATHALIE TORO MD 789.00 Abdominal Pain Unspecified Site 07/01/2011 NATHALIE TORO MD 789.06 Abdominal Pain Epigastric 07/01/2011 [facility], KVNG R 783.21 Weight Loss 07/01/2011 [facility], KVNG R 787.1 Heartburn 07/01/2011 [facility], KVNG R 787.3 Gas/bloating Pain 07/01/2011 [facility], KVNG R 789.00 Abdominal Pain Unspecified Site 07/01/2011 [facility], KVNG R 789.06 Abdominal Pain Epigastric 07/01/2011 COBB JR EDUARDO S 783.21 Weight Loss 07/01/2011 REZA ZAPATA, EDUARDO S 787.1 Heartburn 07/01/2011 REZA ZAPATA, EDUARDO S 787.3 Gas/bloating Pain 07/01/2011 COBB , EDUARDO S 789.00 Abdominal Pain Unspecified Site 07/01/2011 REZA ZAPATA EDUARDO S 789.06 Abdominal Pain Epigastric 07/01/2011 [facility], KVNG R 783.21 Weight Loss 07/01/2011 [facility], KVNG R 787.1 Heartburn 07/01/2011 [facility], KVNG R 787.3 Gas/bloating Pain 07/01/2011 [facility], KVNG R 789.00 Abdominal Pain Unspecified Site 07/01/2011 [facility], KVNG R 789.06 Abdominal Pain Epigastric 07/01/2011 [facility], KVNG R 783.21 Weight Loss 07/01/2011 [facility], KVNG R 787.1 Heartburn 07/01/2011 [facility], KVNG R 787.3 Gas/bloating Pain 07/01/2011 [facility], KVNG R 789.00 Abdominal Pain Unspecified Site 07/01/2011 [facility], KVNG R 789.06 Abdominal Pain Epigastric 07/01/2011 FRANKY ROTOPRINTER, LETTY S 783.21 Weight Loss 07/01/2011 FRANKY ROTOPRINTER, LETTY S 787.1 Heartburn 07/01/2011 FRANKY ROTOPRINTER, LETTY S 787.3 Gas/bloating Pain 07/01/2011 FRANKY ROTOPRINTER, LETTY S 789.00 Abdominal Pain Unspecified Site 07/01/2011 FRANKY ROTOPRINTER, LETTY S 789.06 Abdominal Pain Epigastric 07/01/2011 NATHALIE TORO MD 783.21 Weight Loss 07/01/2011 NATHALIE TORO MD 787.1 Heartburn 07/01/2011 MUNA SAUNDERS, NATHALIE 787.3 Gas/bloating Pain 07/01/2011 MUNA SAUNDERS, NATHALIE 789.00 Abdominal Pain Unspecified Site 07/01/2011 NATHALIE TORO MD 789.06 Abdominal Pain Epigastric 07/01/2011 MAYUR LSCS, KVNG R 783.21 Weight Loss 07/01/2011 MAYUR LSCS, KVNG R 787.1 Heartburn 07/01/2011 MAYUR LSCS, KVNG R 787.3 Gas/bloating Pain 07/01/2011 MAYUR LSCS, KVNG R 789.00 Abdominal Pain Unspecified Site 07/01/2011 MAYUR LSCS, KVNG R 789.06 Abdominal Pain Epigastric 07/01/2011 NATHALIE TORO MD 783.21 Weight Loss 07/01/2011 NATHALIE TORO MD 787.1 Heartburn 07/01/2011 NATHALIE TORO MD 787.3 Gas/bloating Pain 07/01/2011 NATHALIE TORO MD 789.00 Abdominal Pain Unspecified Site 07/01/2011 NATHALIE TORO MD 789.06 Abdominal Pain Epigastric 07/01/2011 MAYUR LSCS, KVNG R 783.21 Weight Loss 07/01/2011 MAYUR LSCS, KVNG R 787.1 Heartburn 07/01/2011 MAYUR LSCS, KVNG R 787.3 Gas/bloating Pain 07/01/2011 MAYUR LSCS, KVNG R 789.00 Abdominal Pain Unspecified Site 07/01/2011 MAYUR LSCS, KVNG R 789.06 Abdominal Pain Epigastric 07/01/2011 MAYUR LSCS, KVNG R 783.21 Weight Loss 07/01/2011 MAYUR LSCS, KVNG R 787.1 Heartburn 07/01/2011 MAYUR LSCS, KVNG R 787.3 Gas/bloating Pain 07/01/2011 MAYUR LSCS, KVNG R 789.00 Abdominal Pain Unspecified Site 07/01/2011 MAYUR LSCS, KVNG R 789.06 Abdominal Pain Epigastric 07/01/2011 MAYUR LSCS, KVNG R 783.21 Weight Loss 07/01/2011 MAYUR LSCS, KVNG R 787.1 Heartburn 07/01/2011 MAYUR LSCS, KVNG R 787.3 Gas/bloating Pain 07/01/2011 MAYUR LSCS, KVNG R 789.00 Abdominal Pain Unspecified Site 07/01/2011 MAYUR LSCS, KVNG R 789.06 Abdominal Pain Epigastric 07/01/2011 WAGN ROTOPRINTER, ROBERT 783.21 Weight Loss 07/01/2011 WANG ROTOPRINTER, ROBERT 787.1 Heartburn 07/01/2011 WANG ROTOPRINTER, ROBERT 787.3 Gas/bloating Pain 07/01/2011 WANG ROTOPRINTER, ROBERT 789.00 Abdominal Pain Unspecified Site 07/01/2011 WANG ROTOPRINTER, ROBERT 789.06 Abdominal Pain Epigastric 07/01/2011 WANG ROTOPRINTER, ROBERT 783.21 Weight Loss 07/01/2011 WANG ROTOPRINTER, ROBERT 787.1 Heartburn 07/01/2011 WANG ROTOPRINTER, ROBERT 787.3 Gas/bloating Pain 07/01/2011 WANG ROTOPRINTER, ROBERT 789.00 Abdominal Pain Unspecified Site 07/01/2011 WANG ROTOPRINTER, ROBERT 789.06 Abdominal Pain Epigastric 07/01/2011 FRANKY ROTOPRINTER, LETTY S 783.21 Weight Loss 07/01/2011 FRANKY ROTOPRINTER, LETTY S 787.1 Heartburn 07/01/2011 FRANKY ROTOPRINTER, LETTY S 787.3 Gas/bloating Pain 07/01/2011 FRANKY ROTOPRINTER, LETTY S 789.00 Abdominal Pain Unspecified Site 07/01/2011 FRANKY ROTOPRINTER, LETTY S 789.06 Abdominal Pain Epigastric 07/01/2011 MAYUR LSCS, KVNG R 783.21 Weight Loss 07/01/2011 MAYUR LSCS, KVNG R 787.1 Heartburn 07/01/2011 MAYUR LSCS, KVNG R 787.3 Gas/bloating Pain 07/01/2011 MAYUR LSCS, KVNG R 789.00 Abdominal Pain Unspecified Site 07/01/2011 MAYUR LSCS, KVNG R 789.06 Abdominal Pain Epigastric 07/01/2011 MAYUR LSCS, KVNG R 783.21 Weight Loss 07/01/2011 MAYUR LSCS, KVNG R 787.1 Heartburn 07/01/2011 MAYUR LSCS, KVNG R 787.3 Gas/bloating Pain 07/01/2011 MAYUR LSCS, KVNG R 789.00 Abdominal Pain Unspecified Site 07/01/2011 MAYUR LSCS, KVNG R 789.06 Abdominal Pain Epigastric 07/01/2011 WANG ROTOPRINTER, ROBERT 783.21 Weight Loss 07/01/2011 WANG ROTOPRINTER, ROBERT 787.1 Heartburn 07/01/2011 WANG ROTOPRINTER, ROBERT 787.3 Gas/bloating Pain 07/01/2011 WANG ROTOPRINTER, ROEBRT 789.00 Abdominal Pain Unspecified Site 07/01/2011 WANG ROTOPRINTER, ROBERT 789.06 Abdominal Pain Epigastric 07/01/2011 MAYUR LSCS, KVNG R 783.21 Weight Loss 07/01/2011 MAYUR LSCS, KVNG R 787.1 Heartburn 07/01/2011 MAYUR LSCS, KVNG R 787.3 Gas/bloating Pain 07/01/2011 MAYUR LSCS, KVNG R 789.00 Abdominal Pain Unspecified Site 07/01/2011 MAYUR LSCS, KVNG R 789.06 Abdominal Pain Epigastric 07/01/2011 FRANKY ROTOPRINTER, LETTY S 783.21 Weight Loss 07/01/2011 FRANKY ROTOPRINTER, LETTY S 787.1 Heartburn 07/01/2011 FRANKY ROTOPRINTER, LETTY S 787.3 Gas/bloating Pain 07/01/2011 FRANKY ROTOPRINTER, LETTY S 789.00 Abdominal Pain Unspecified Site 07/01/2011 FRANKY ROTOPRINTER, LETTY S 789.06 Abdominal Pain Epigastric 07/01/2011 MAYUR LSCS, KVNG R 783.21 Weight Loss 07/01/2011 MAYUR LSCS, KVNG R 787.1 Heartburn 07/01/2011 MAYUR LSCS, KVNG R 787.3 Gas/bloating Pain 07/01/2011 MAYUR LSCS, KVNG R 789.00 Abdominal Pain Unspecified Site 07/01/2011 MAYUR LSCS, KVNG R 789.06 Abdominal Pain Epigastric 07/01/2011 MAYUR LSCS, KVNG R 783.21 Weight Loss 07/01/2011 MAYUR LSCS, KVNG R 787.1 Heartburn 07/01/2011 MAYUR LSCS, KVNG R 787.3 Gas/bloating Pain 07/01/2011 MAYUR LSCS, KVNG R 789.00 Abdominal Pain Unspecified Site 07/01/2011 MAYUR LSCS, KVNG R 789.06 Abdominal Pain Epigastric 07/01/2011 MAYUR LSCS, KVNG R 783.21 Weight Loss 07/01/2011 MAYUR LSCS, KVNG R 787.1 Heartburn 07/01/2011 MAYUR LSCS, KVNG R 787.3 Gas/bloating Pain 07/01/2011 MAYUR LSCS, KVNG R 789.00 Abdominal Pain Unspecified Site 07/01/2011 MAYUR LSCS, KVNG R 789.06 Abdominal Pain Epigastric 07/01/2011 MUOGHALU DDS, WILLARD N 783.21 Weight Loss 07/01/2011 MUOGHALU DDS, WILLARD N 787.1 Heartburn 07/01/2011 MUOGHALU DDS, WILLARD N 787.3 Gas/bloating Pain 07/01/2011 MUOGHALU DDS, WILLARD N 789.00 Abdominal Pain Unspecified Site 07/01/2011 MUOGHALU DDS, WILLARD N 789.06 Abdominal Pain Epigastric 07/08/2011 MUOGHALU DDS, WILLARD N 562.11 Diverticulitis Of Colon (without Hemorrhage) 07/08/2011 MUOGHALU DDS, WILLARD N 789.02 Abdominal Pain Left Upper Quadrant 07/08/2011 MUOGHALU DDS, WILLARD N 789.04 Abdominal Pain Left Lower Quadrant 07/08/2011 MAYUR LSCS, KVNG R 562.11 Diverticulitis Of Colon (without Hemorrhage) 07/08/2011 MAYUR LSCS, KVNG R 789.02 Abdominal Pain Left Upper Quadrant 07/08/2011 MAYUR LSCS, KVNG R 789.04 Abdominal Pain Left Lower Quadrant 07/08/2011 562.11 Diverticulitis Of Colon (without Hemorrhage) 07/08/2011 789.02 Abdominal Pain Left Upper Quadrant 07/08/2011 789.04 Abdominal Pain Left Lower Quadrant 07/08/2011 562.11 Diverticulitis Of Colon (without Hemorrhage) 07/08/2011 789.02 Abdominal Pain Left Upper Quadrant 07/08/2011 789.04 Abdominal Pain Left Lower Quadrant 07/08/2011 KVNG KNIGHT R 562.11 Diverticulitis Of Colon (without Hemorrhage) 07/08/2011 MAYUR FISHMAN, KVNG R 789.02 Abdominal Pain Left Upper Quadrant 07/08/2011 [facility], KVNG R 789.04 Abdominal Pain Left Lower Quadrant 07/08/2011 562.11 Diverticulitis Of Colon (without Hemorrhage) 07/08/2011 789.02 Abdominal Pain Left Upper Quadrant 07/08/2011 789.04 Abdominal Pain Left Lower Quadrant 07/08/2011 562.11 Diverticulitis Of Colon (without Hemorrhage) 07/08/2011 789.02 Abdominal Pain Left Upper Quadrant 07/08/2011 789.04 Abdominal Pain Left Lower Quadrant 07/08/2011 562.11 Diverticulitis Of Colon (without Hemorrhage) 07/08/2011 789.02 Abdominal Pain Left Upper Quadrant 07/08/2011 789.04 Abdominal Pain Left Lower Quadrant 07/08/2011 562.11 Diverticulitis Of Colon (without Hemorrhage) 07/08/2011 789.02 Abdominal Pain Left Upper Quadrant 07/08/2011 789.04 Abdominal Pain Left Lower Quadrant 07/08/2011 562.11 Diverticulitis Of Colon (without Hemorrhage) 07/08/2011 789.02 Abdominal Pain Left Upper Quadrant 07/08/2011 789.04 Abdominal Pain Left Lower Quadrant 07/08/2011 562.11 Diverticulitis Of Colon (without Hemorrhage) 07/08/2011 789.02 Abdominal Pain Left Upper Quadrant 07/08/2011 789.04 Abdominal Pain Left Lower Quadrant 07/08/2011 562.11 Diverticulitis Of Colon (without Hemorrhage) 07/08/2011 789.02 Abdominal Pain Left Upper Quadrant 07/08/2011 789.04 Abdominal Pain Left Lower Quadrant 07/08/2011 562.11 Diverticulitis Of Colon (without Hemorrhage) 07/08/2011 789.02 Abdominal Pain Left Upper Quadrant 07/08/2011 789.04 Abdominal Pain Left Lower Quadrant 07/08/2011 562.11 Diverticulitis Of Colon (without Hemorrhage) 07/08/2011 789.02 Abdominal Pain Left Upper Quadrant 07/08/2011 789.04 Abdominal Pain Left Lower Quadrant 07/08/2011 [facility] 562.11 Diverticulitis Of Colon (without Hemorrhage) 07/08/2011 MAYUR LSCS, KVNG R 789.02 Abdominal Pain Left Upper Quadrant 07/08/2011 MAYUR LSCS, KVNG R 789.04 Abdominal Pain Left Lower Quadrant 07/08/2011 MAYUR LSCS, KVNG R 562.11 Diverticulitis Of Colon (without Hemorrhage) 07/08/2011 MAYUR LSCS, KVNG R 789.02 Abdominal Pain Left Upper Quadrant 07/08/2011 MAYUR LSCS, KVNG R 789.04 Abdominal Pain Left Lower Quadrant 07/08/2011 MAYUR LSCS, KVNG R 562.11 Diverticulitis Of Colon (without Hemorrhage) 07/08/2011 MAYUR LSCS, KVNG R 789.02 Abdominal Pain Left Upper Quadrant 07/08/2011 MAYUR LSCS, KVNG R 789.04 Abdominal Pain Left Lower Quadrant 07/08/2011 NATHALIE TORO MD 562.11 Diverticulitis Of Colon (without Hemorrhage ) 07/08/2011 NATHALIE TORO MD 789.02 Abdominal Pain Left Upper Quadrant 07/08/2011 NATHALIE TORO MD 789.04 Abdominal Pain Left Lower Quadrant 07/08/2011 MAYUR LSCS, KVNG R 562.11 Diverticulitis Of Colon (without Hemorrhage) 07/08/2011 MAYUR LSCS, KVNG R 789.02 Abdominal Pain Left Upper Quadrant 07/08/2011 MAYUR LSCS, KVNG R 789.04 Abdominal Pain Left Lower Quadrant 07/08/2011 EDUARDO COBB JR 562.11 Diverticulitis Of Colon (without Hemorrhage) 07/08/2011 EDUARDO COBB JR 789.02 Abdominal Pain Left Upper Quadrant 07/08/2011 EDUARDO COBB JR 789.04 Abdominal Pain Left Lower Quadrant 07/08/2011 MAY[facility] LSCS, KVNG R 562.11 Diverticulitis Of Colon (without Hemorrhage) 07/08/2011 MAYUR LSCS, KVNG R 789.02 Abdominal Pain Left Upper Quadrant 07/08/2011 MAYUR LSCS, KVNG R 789.04 Abdominal Pain Left Lower Quadrant 07/08/2011 MAYUR LSCS, KVNG R 562.11 Diverticulitis Of Colon (without Hemorrhage) 07/08/2011 MAYUR LSCS, KVNG R 789.02 Abdominal Pain Left Upper Quadrant 07/08/2011 MAYUR LSCS, KVNG R 789.04 Abdominal Pain Left Lower Quadrant 07/08/2011 FRANKY ROTOPRINTER, LETTY S 562.11 Diverticulitis Of Colon (without Hemorrhage) 07/08/2011 FRANKY ROTOPRINTER, LETTY S 789.02 Abdominal Pain Left Upper Quadrant 07/08/2011 FRANKY ROTOPRINTER, LETTY S 789.04 Abdominal Pain Left Lower Quadrant 07/08/2011 NATHALIE TORO MD 562.11 Diverticulitis Of Colon (without Hemorrhage ) 07/08/2011 NATHALIE TORO MD 789.02 Abdominal Pain Left Upper Quadrant 07/08/2011 NATHALIE TORO MD 789.04 Abdominal Pain Left Lower Quadrant 07/08/2011 MAYUR LSCS, KVNG R 562.11 Diverticulitis Of Colon (without Hemorrhage) 07/08/2011 MAYUR LSCS, KVNG R 789.02 Abdominal Pain Left Upper Quadrant 07/08/2011 MAYUR LSCS, KVNG R 789.04 Abdominal Pain Left Lower Quadrant 07/08/2011 NATHALIE TORO MD 562.11 Diverticulitis Of Colon (without Hemorrhage ) 07/08/2011 NATHALIE TORO MD 789.02 Abdominal Pain Left Upper Quadrant 07/08/2011 NATHALIE TORO MD 789.04 Abdominal Pain Left Lower Quadrant 07/08/2011 MAYUR LSCS, KVNG R 562.11 Diverticulitis Of Colon (without Hemorrhage) 07/08/2011 MAYUR LSCS, KVNG R 789.02 Abdominal Pain Left Upper Quadrant 07/08/2011 MAYUR LSCS, KVNG R 789.04 Abdominal Pain Left Lower Quadrant 07/08/2011 MAYUR LSCS, KVNG R 562.11 Diverticulitis Of Colon (without Hemorrhage) 07/08/2011 MAYUR LSCS, KVNG R 789.02 Abdominal Pain Left Upper Quadrant 07/08/2011 MAYUR LSCS, KVNG R 789.04 Abdominal Pain Left Lower Quadrant 07/08/2011 MAYUR LSCS, KVNG R 562.11 Diverticulitis Of Colon (without Hemorrhage) 07/08/2011 MAYUR LSCS, KVNG R 789.02 Abdominal Pain Left Upper Quadrant 07/08/2011 MAYUR LSCS, KVNG R 789.04 Abdominal Pain Left Lower Quadrant 07/08/2011 ROBERT PIÑA APRN 562.11 Diverticulitis Of Colon (without Hemorrhage) 07/08/2011 WANG ROTOPRINTER, ROBERT 789.02 Abdominal Pain Left Upper Quadrant 07/08/2011 WANG ROTOPRINTER, ROBERT 789.04 Abdominal Pain Left Lower Quadrant 07/08/2011 WANG ROTOPRINTER, ROBERT 562.11 Diverticulitis Of Colon (without Hemorrhage) 07/08/2011 WANG ROTOPRINTER, ROBERT 789.02 Abdominal Pain Left Upper Quadrant 07/08/2011 WANG ROTOPRINTER, ROBERT 789.04 Abdominal Pain Left Lower Quadrant 07/08/2011 FRANKY ROTOPRINTER, LETTY S 562.11 Diverticulitis Of Colon (without Hemorrhage) 07/08/2011 FRANKY ROTOPRINTER, LETTY S 789.02 Abdominal Pain Left Upper Quadrant 07/08/2011 FRANKY ROTOPRINTER, LETTY S 789.04 Abdominal Pain Left Lower Quadrant 07/08/2011 [facility] 562.11 Diverticulitis Of Colon (without Hemorrhage) 07/08/2011 MAYUR CS, KVNG R 789.02 Abdominal Pain Left Upper Quadrant 07/08/2011 MAYUR LSCS, KVNG R 789.04 Abdominal Pain Left Lower Quadrant 07/08/2011 MAYUR CS, KVNG R 562.11 Diverticulitis Of Colon (without Hemorrhage) 07/08/2011 MAYUR LSCS, KVNG R 789.02 Abdominal Pain Left Upper Quadrant 07/08/2011 MAYUR LSCS, KVNG R 789.04 Abdominal Pain Left Lower Quadrant 07/08/2011 WANG ROTOPRINTER, ROBERT 562.11 Diverticulitis Of Colon (without Hemorrhage) 07/08/2011 WANG ROTOPRINTER, ROBERT 789.02 Abdominal Pain Left Upper Quadrant 07/08/2011 WANG ROTOPRINTER, ROBERT 789.04 Abdominal Pain Left Lower Quadrant 07/08/2011 MAYUR LSCS, KVNG R 562.11 Diverticulitis Of Colon (without Hemorrhage) 07/08/2011 MAYUR LSCS, KVNG R 789.02 Abdominal Pain Left Upper Quadrant 07/08/2011 MAYUR LSCS, KVNG R 789.04 Abdominal Pain Left Lower Quadrant 07/08/2011 FRANKY ROTOPRINTER, LETTY S 562.11 Diverticulitis Of Colon (without Hemorrhage) 07/08/2011 FRANKY ROTOPRINTER, LETTY S 789.02 Abdominal Pain Left Upper Quadrant 07/08/2011 FRANKY MAXN, LETTY S 789.04 Abdominal Pain Left Lower Quadrant 07/08/2011 [facility] 562.11 Diverticulitis Of Colon (without Hemorrhage) 07/08/2011 MAYUR LSCS, KVNG R 789.02 Abdominal Pain Left Upper Quadrant 07/08/2011 MAYUR LSCS, KVNG R 789.04 Abdominal Pain Left Lower Quadrant 07/08/2011 MAYUR LSCS, KVNG R 562.11 Diverticulitis Of Colon (without Hemorrhage) 07/08/2011 MAYUR LSCS, KVNG R 789.02 Abdominal Pain Left Upper Quadrant 07/08/2011 MAYUR LSCS, KVNG R 789.04 Abdominal Pain Left Lower Quadrant 07/08/2011 MAYUR LSCS, KVNG R 562.11 Diverticulitis Of Colon (without Hemorrhage) 07/08/2011 MAYUR LSCS, KVNG R 789.02 Abdominal Pain Left Upper Quadrant 07/08/2011 [facility] 789.04 Abdominal Pain Left Lower Quadrant 07/08/2011 MUOGHALU DDS, WILLARD N 562.11 Diverticulitis Of Colon (without Hemorrhage) 07/08/2011 MUOGHALU DDS, WILLARD N 789.02 Abdominal Pain Left Upper Quadrant 07/08/2011 MUOGHALU DDS, WILLARD N 789.04 Abdominal Pain Left Lower Quadrant 07/11/2011 MUOGHALU DDS, WILLARD N 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 07/11/2011 [facility] KVNG [facility] 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 07/11/2011 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 07/11/2011 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 07/11/2011 [facility], KVNG R 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 07/11/2011 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 07/11/2011 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 07/11/2011 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 07/11/2011 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 07/11/2011 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 07/11/2011 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 07/11/2011 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 07/11/2011 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 07/11/2011 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 07/11/2011 [facility], KVNG R 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 07/11/2011 [facility], KVNG R 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 07/11/2011 [facility], KVNG R 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 07/11/2011 NATHALIE TORO MD 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 07/11/2011 [facility], KVNG R 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 07/11/2011 EDUARDO COBB JR 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 07/11/2011 [facility], KVNG R 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 07/11/2011 [facility], KVNG R 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 07/11/2011 ANTONIA WILKINS APRNNDA S 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 07/11/2011 NATHALIE TORO MD 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 07/11/2011 [facility], KVNG R 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 07/11/2011 NATHALIE TORO MD 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 07/11/2011 [facility], KVNG R 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 07/11/2011 [facility], KVNG R 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 07/11/2011 [facility], KVNG R 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 07/11/2011 WANG ROTOPRINTER, ROBERT 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 07/11/2011 WANG ROTOPRINTER, ROBERT 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 07/11/2011 FRANKY ROTOPRINTER, LETTY S 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 07/11/2011 [facility], KVNG R 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 07/11/2011 [facility], KVNG R 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 07/11/2011 WANG ROTOPRINTER, ROBERT 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 07/11/2011 [facility], KVNG R 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 07/11/2011 FRANKY ROTOPRINTER, LETTY S 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 07/11/2011 [facility], KVNG R 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 07/11/2011 [facility], KVNG R 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 07/11/2011 [facility], KVNG R 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 07/11/2011 MUOGHALU DDS, WILLARD N 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 07/22/2011 MUOGHALU DDS, WILLARD N 536.8 DYSPEPSIA 07/22/2011 MUOGHALU DDS, WILLARD N 787.91 Diarrhea 07/22/2011 [facility], KVNG R 536.8 DYSPEPSIA 07/22/2011 [facility], KVNG R 787.91 Diarrhea 07/22/2011 536.8 DYSPEPSIA 07/22/2011 787.91 Diarrhea 07/22/2011 536.8 DYSPEPSIA 07/22/2011 787.91 Diarrhea 07/22/2011 [facility], KVNG R 536.8 DYSPEPSIA 07/22/2011 [facility], KVNG R 787.91 Diarrhea 07/22/2011 536.8 DYSPEPSIA 07/22/2011 787.91 Diarrhea 07/22/2011 536.8 DYSPEPSIA 07/22/2011 787.91 Diarrhea 07/22/2011 536.8 DYSPEPSIA 07/22/2011 787.91 Diarrhea 07/22/2011 536.8 DYSPEPSIA 07/22/2011 787.91 Diarrhea 07/22/2011 536.8 DYSPEPSIA 07/22/2011 787.91 Diarrhea 07/22/2011 536.8 DYSPEPSIA 07/22/2011 787.91 Diarrhea 07/22/2011 536.8 DYSPEPSIA 07/22/2011 787.91 Diarrhea 07/22/2011 536.8 DYSPEPSIA 07/22/2011 787.91 Diarrhea 07/22/2011 536.8 DYSPEPSIA 07/22/2011 787.91 Diarrhea 07/22/2011 [facility], KVNG R 536.8 DYSPEPSIA 07/22/2011 [facility], KVNG R 787.91 Diarrhea 07/22/2011 [facility], KVNG R 536.8 DYSPEPSIA 07/22/2011 [facility], KVNG R 787.91 Diarrhea 07/22/2011 [facility], KVNG R 536.8 DYSPEPSIA 07/22/2011 [facility], KVNG R 787.91 Diarrhea 07/22/2011 MUNA SAUNDERS, NATHALIE 536.8 DYSPEPSIA 07/22/2011 NATHALIE TORO MD 787.91 Diarrhea 07/22/2011 [facility], KVNG R 536.8 DYSPEPSIA 07/22/2011 MAY[facility] CS, KVNG R 787.91 Diarrhea 07/22/2011 EDUARDO COBB JR S 536.8 DYSPEPSIA 07/22/2011 EDUARDO COBB JR S 787.91 Diarrhea 07/22/2011 [facility] 536.8 DYSPEPSIA 07/22/2011 [facility] KV[facility] R 787.91 Diarrhea 07/22/2011 [facility] 536.8 DYSPEPSIA 07/22/2011 [facility], KVNG R 787.91 Diarrhea 07/22/2011 FRANKY ROTOPRINTERANTONIA VazquezNDA S 536.8 DYSPEPSIA 07/22/2011 FRANKY ROTOPRINTER, LETTY S 787.91 Diarrhea 07/22/2011 NATHALIE TORO MD 536.8 DYSPEPSIA 07/22/2011 NATHALIE TORO MD 787.91 Diarrhea 07/22/2011 [facility], KVNG R 536.8 DYSPEPSIA 07/22/2011 [facility], KVNG R 787.91 Diarrhea 07/22/2011 NATHALIE TORO MD 536.8 DYSPEPSIA 07/22/2011 NATHALIE TORO MD 787.91 Diarrhea 07/22/2011 [facility], KVNG R 536.8 DYSPEPSIA 07/22/2011 [facility], KVNG R 787.91 Diarrhea 07/22/2011 [facility], KVNG R 536.8 DYSPEPSIA 07/22/2011 [facility], KVNG R 787.91 Diarrhea 07/22/2011 [facility], KVNG R 536.8 DYSPEPSIA 07/22/2011 [facility], KVNG R 787.91 Diarrhea 07/22/2011 WANG ROTOPRINTER, ROBERT 536.8 DYSPEPSIA 07/22/2011 WANG ROTOPRINTER, ROBERT 787.91 Diarrhea 07/22/2011 WANG ROTOPRINTER, ROBERT 536.8 DYSPEPSIA 07/22/2011 WANG ROTOPRINTER, ROBERT 787.91 Diarrhea 07/22/2011 FRANKY ROTOPRINTER, LETTY S 536.8 DYSPEPSIA 07/22/2011 FRANKY ROTOPRINTER, LETTY S 787.91 Diarrhea 07/22/2011 MAYUR LSCS, KVNG R 536.8 DYSPEPSIA 07/22/2011 MAYUR LSCS, KVNG R 787.91 Diarrhea 07/22/2011 MAYUR LSCS, KVNG R 536.8 DYSPEPSIA 07/22/2011 MAYUR LSCS, KVNG R 787.91 Diarrhea 07/22/2011 WANG ROTOPRINTER, ROBERT 536.8 DYSPEPSIA 07/22/2011 WANG ROTOPRINTER, ROBERT 787.91 Diarrhea 07/22/2011 MAYUR LSCS, KVNG R 536.8 DYSPEPSIA 07/22/2011 MAYUR LSCS, KVNG R 787.91 Diarrhea 07/22/2011 FRANKY ROTOPRINTER, LETTY S 536.8 DYSPEPSIA 07/22/2011 FRANKY ROTOPRINTER, LETTY S 787.91 Diarrhea 07/22/2011 MAYUR LSCS, KVNG R 536.8 DYSPEPSIA 07/22/2011 MAYUR LSCS, KVNG R 787.91 Diarrhea 07/22/2011 MAYUR LSCS, KVNG R 536.8 DYSPEPSIA 07/22/2011 MAYUR LSCS, KVNG R 787.91 Diarrhea 07/22/2011 MAYUR LSCS, KVNG R 536.8 DYSPEPSIA 07/22/2011 MAY[facility] LSCS, KVNG R 787.91 Diarrhea 07/22/2011 MUOGHALU DDS, WILLARD N 536.8 DYSPEPSIA 07/22/2011 MUOGHALU DDS, WILLARD N 787.91 Diarrhea 09/23/2011 MUOGHALU DDS, WILLARD N 530.81 GERD 09/23/2011 MUOGHALU DDS, WILLARD N 535.50 GASTRITIS UNSPEC 09/23/2011 MUOGHALU DDS, WILLARD N 562.00 DIVERTICULOSIS 09/23/2011 MUOGHALU DDS, WILLARD N 787.20 DYSPHAGIA, UNSPECIFIED 09/23/2011 [facility] LSCS, KVNG R 530.81 GERD 09/23/2011 [facility] LSCS, KVNG R 535.50 GASTRITIS UNSPEC 09/23/2011 [facility] KV[facility] R 562.00 DIVERTICULOSIS 09/23/2011 [facility], KVNG R 787.20 DYSPHAGIA, UNSPECIFIED 09/23/2011 530.81 GERD 09/23/2011 535.50 GASTRITIS UNSPEC 09/23/2011 562.00 DIVERTICULOSIS 09/23/2011 787.20 DYSPHAGIA, UNSPECIFIED 09/23/2011 530.81 GERD 09/23/2011 535.50 GASTRITIS UNSPEC 09/23/2011 562.00 DIVERTICULOSIS 09/23/2011 787.20 DYSPHAGIA, UNSPECIFIED 09/23/2011 [facility], KVNG R 530.81 GERD 09/23/2011 [facility], KVNG R 535.50 GASTRITIS UNSPEC 09/23/2011 [facility], KVNG R 562.00 DIVERTICULOSIS 09/23/2011 [facility], KVNG R 787.20 DYSPHAGIA, UNSPECIFIED 09/23/2011 530.81 GERD 09/23/2011 535.50 GASTRITIS UNSPEC 09/23/2011 562.00 DIVERTICULOSIS 09/23/2011 787.20 DYSPHAGIA, UNSPECIFIED 09/23/2011 530.81 GERD 09/23/2011 535.50 GASTRITIS UNSPEC 09/23/2011 562.00 DIVERTICULOSIS 09/23/2011 787.20 DYSPHAGIA, UNSPECIFIED 09/23/2011 530.81 GERD 09/23/2011 535.50 GASTRITIS UNSPEC 09/23/2011 562.00 DIVERTICULOSIS 09/23/2011 787.20 DYSPHAGIA, UNSPECIFIED 09/23/2011 530.81 GERD 09/23/2011 535.50 GASTRITIS UNSPEC 09/23/2011 562.00 DIVERTICULOSIS 09/23/2011 787.20 DYSPHAGIA, UNSPECIFIED 09/23/2011 530.81 GERD 09/23/2011 535.50 GASTRITIS UNSPEC 09/23/2011 562.00 DIVERTICULOSIS 09/23/2011 787.20 DYSPHAGIA, UNSPECIFIED 09/23/2011 530.81 GERD 09/23/2011 535.50 GASTRITIS UNSPEC 09/23/2011 562.00 DIVERTICULOSIS 09/23/2011 787.20 DYSPHAGIA, UNSPECIFIED 09/23/2011 530.81 GERD 09/23/2011 535.50 GASTRITIS UNSPEC 09/23/2011 562.00 DIVERTICULOSIS 09/23/2011 787.20 DYSPHAGIA, UNSPECIFIED 09/23/2011 530.81 GERD 09/23/2011 535.50 GASTRITIS UNSPEC 09/23/2011 562.00 DIVERTICULOSIS 09/23/2011 787.20 DYSPHAGIA, UNSPECIFIED 09/23/2011 530.81 GERD 09/23/2011 535.50 GASTRITIS UNSPEC 09/23/2011 562.00 DIVERTICULOSIS 09/23/2011 787.20 DYSPHAGIA, UNSPECIFIED 09/23/2011 [facility] L[facility], KVNG R 530.81 GERD 09/23/2011 [facility] LSCS, KVNG R 535.50 GASTRITIS UNSPEC 09/23/2011 [facility], KVNG R 562.00 DIVERTICULOSIS 09/23/2011 [facility] LSCS, KVNG R 787.20 DYSPHAGIA, UNSPECIFIED 09/23/2011 [facility] L[facility], KVNG R 530.81 GERD 09/23/2011 [facility], KVNG R 535.50 GASTRITIS UNSPEC 09/23/2011 [facility], KVNG R 562.00 DIVERTICULOSIS 09/23/2011 [facility], KVNG R 787.20 DYSPHAGIA, UNSPECIFIED 09/23/2011 [facility] 530.81 GERD 09/23/2011 WAUNETA LSCS, KVNG R 535.50 GASTRITIS UNSPEC 09/23/2011 [facility] KVNG R 562.00 DIVERTICULOSIS 09/23/2011 [facility] KVNG R 787.20 DYSPHAGIA, UNSPECIFIED 09/23/2011 MUNA SAUNDERS, NATHALIE 530.81 GERD 09/23/2011 MUNA SAUNDERS, NATHALIE 535.50 GASTRITIS UNSPEC 09/23/2011 MUNA SAUNDERS, NATHALIE 562.00 DIVERTICULOSIS 09/23/2011 MUNA SAUNDERS, NATHALIE 787.20 DYSPHAGIA, UNSPECIFIED 09/23/2011 [facility] KVNG R 530.81 GERD 09/23/2011 [facility] KVNG R 535.50 GASTRITIS UNSPEC 09/23/2011 [facility] KVNG R 562.00 DIVERTICULOSIS 09/23/2011 [facility] KVNG R 787.20 DYSPHAGIA, UNSPECIFIED 09/23/2011 REZA ZAPATA, EDUARDO Boudreaux 530.81 GERD 09/23/2011 EDUARDO COBB JR 535.50 GASTRITIS UNSPEC 09/23/2011 REZA ZAPATA, EDUARDO S 562.00 DIVERTICULOSIS 09/23/2011 REZA ZAPATA, EDUARDO Boudreaux 787.20 DYSPHAGIA, UNSPECIFIED 09/23/2011 [facility] KVNG R 530.81 GERD 09/23/2011 MAYUR LSCS, KVNG R 535.50 GASTRITIS UNSPEC 09/23/2011 MAYUR LSCS, KVNG R 562.00 DIVERTICULOSIS 09/23/2011 MAYUR LSCS, KVNG R 787.20 DYSPHAGIA, UNSPECIFIED 09/23/2011 MAYUR LSCS, KVNG R 530.81 GERD 09/23/2011 MAYUR LSCS, KVNG R 535.50 GASTRITIS UNSPEC 09/23/2011 MAYUR LSCS, KVNG R 562.00 DIVERTICULOSIS 09/23/2011 [facility] LSCS, KVNG R 787.20 DYSPHAGIA, UNSPECIFIED 09/23/2011 FRANKY ROTOPRINTER, LETTY S 530.81 GERD 09/23/2011 FRANKY ROTOPRINTER, LETTY S 535.50 GASTRITIS UNSPEC 09/23/2011 FRANKY ROTOPRINTER, LETTY S 562.00 DIVERTICULOSIS 09/23/2011 FRANKY ROTOPRINTER, LETTY S 787.20 DYSPHAGIA, UNSPECIFIED 09/23/2011 MUNA SAUNDERS, NATHALIE 530.81 GERD 09/23/2011 MUNA SAUNDERS, NATHALIE 535.50 GASTRITIS UNSPEC 09/23/2011 MUNA SAUNDERS, NATHALIE 562.00 DIVERTICULOSIS 09/23/2011 MUNA SAUNDERS, NATHALIE 787.20 DYSPHAGIA, UNSPECIFIED 09/23/2011 [facility] LSCS, KVNG R 530.81 GERD 09/23/2011 MAY[facility] LSCS, KVNG R 535.50 GASTRITIS UNSPEC 09/23/2011 MAY[facility] LSCS, KVNG R 562.00 DIVERTICULOSIS 09/23/2011 MAYUR LSCS, KVNG R 787.20 DYSPHAGIA, UNSPECIFIED 09/23/2011 MUNA SAUNDERS, NATHALIE 530.81 GERD 09/23/2011 MUNA SAUNDERS, NATHALIE 535.50 GASTRITIS UNSPEC 09/23/2011 MUNA SAUNDERS, NATHALIE 562.00 DIVERTICULOSIS 09/23/2011 MUNA SAUNDERS, NATHALIE 787.20 DYSPHAGIA, UNSPECIFIED 09/23/2011 MAYUR LSCS, KVNG R 530.81 GERD 09/23/2011 MAYUR LSCS, KVNG R 535.50 GASTRITIS UNSPEC 09/23/2011 MAYUR LSCS, KVNG R 562.00 DIVERTICULOSIS 09/23/2011 MAYUR LSCS, KVNG R 787.20 DYSPHAGIA, UNSPECIFIED 09/23/2011 MAYUR LSCS, KVNG R 530.81 GERD 09/23/2011 MAYUR LSCS, KVNG R 535.50 GASTRITIS UNSPEC 09/23/2011 MAYUR LSCS, KVNG R 562.00 DIVERTICULOSIS 09/23/2011 MAYUR LSCS, KVNG R 787.20 DYSPHAGIA, UNSPECIFIED 09/23/2011 MAYUR LSCS, KVNG R 530.81 GERD 09/23/2011 MAYUR LSCS, KVNG R 535.50 GASTRITIS UNSPEC 09/23/2011 MAYUR LSCS, KVNG R 562.00 DIVERTICULOSIS 09/23/2011 MAYUR LSCS, KVNG R 787.20 DYSPHAGIA, UNSPECIFIED 09/23/2011 WANG ROTOPRINTER, ROBERT 530.81 GERD 09/23/2011 WANG ROTOPRINTER, ROBERT 535.50 GASTRITIS UNSPEC 09/23/2011 WANG ROTOPRINTER, ROBERT 562.00 DIVERTICULOSIS 09/23/2011 WANG ROTOPRINTER, ROBERT 787.20 DYSPHAGIA, UNSPECIFIED 09/23/2011 WANG ROTOPRINTER, ROBERT 530.81 GERD 09/23/2011 WANG ROTOPRINTER, ROBERT 535.50 GASTRITIS UNSPEC 09/23/2011 WANG ROTOPRINTER, ROBERT 562.00 DIVERTICULOSIS 09/23/2011 WANG ROTOPRINTER, ROBERT 787.20 DYSPHAGIA, UNSPECIFIED 09/23/2011 FRANKY ROTOPRINTER, LETTY S 530.81 GERD 09/23/2011 FRANKY ROTOPRINTER, LETTY S 535.50 GASTRITIS UNSPEC 09/23/2011 FRANKY ROTOPRINTER, LETTY S 562.00 DIVERTICULOSIS 09/23/2011 FRANKY ROTOPRINTER, LETTY S 787.20 DYSPHAGIA, UNSPECIFIED 09/23/2011 MAYUR LSCS, KVNG R 530.81 GERD 09/23/2011 MAYUR LSCS, KVNG R 535.50 GASTRITIS UNSPEC 09/23/2011 MAYUR LSCS, KVNG R 562.00 DIVERTICULOSIS 09/23/2011 MAYUR LSCS, KVNG R 787.20 DYSPHAGIA, UNSPECIFIED 09/23/2011 MAYUR LSCS, KVNG R 530.81 GERD 09/23/2011 MAYUR LSCS, KVNG R 535.50 GASTRITIS UNSPEC 09/23/2011 MAYUR LSCS, KVNG R 562.00 DIVERTICULOSIS 09/23/2011 [facility] LSCS, KVNG R 787.20 DYSPHAGIA, UNSPECIFIED 09/23/2011 WANG ROTOPRINTER, ROBERT 530.81 GERD 09/23/2011 WANG ROTOPRINTER, ROBERT 535.50 GASTRITIS UNSPEC 09/23/2011 WANG ROTOPRINTER, ROBERT 562.00 DIVERTICULOSIS 09/23/2011 WANG ROTOPRINTER, ROBERT 787.20 DYSPHAGIA, UNSPECIFIED 09/23/2011 MAYUR LSCS, KVNG R 530.81 GERD 09/23/2011 MAYUR LSCS, KVNG R 535.50 GASTRITIS UNSPEC 09/23/2011 MAYUR LSCS, KVNG R 562.00 DIVERTICULOSIS 09/23/2011 MAY[facility] LSCS, KVNG R 787.20 DYSPHAGIA, UNSPECIFIED 09/23/2011 FRANKY ROTOPRINTER, LETTY S 530.81 GERD 09/23/2011 FRANKY ROTOPRINTER, LETTY S 535.50 GASTRITIS UNSPEC 09/23/2011 FRANKY ROTOPRINTER, LETTY S 562.00 DIVERTICULOSIS 09/23/2011 FRANKY ROTOPRINTER, LETTY S 787.20 DYSPHAGIA, UNSPECIFIED 09/23/2011 MAYUR LSCS, KVNG R 530.81 GERD 09/23/2011 MAYUR LSCS, KVNG R 535.50 GASTRITIS UNSPEC 09/23/2011 MAYUR LSCS, KVNG R 562.00 DIVERTICULOSIS 09/23/2011 MAYUR LSCS, KVNG R 787.20 DYSPHAGIA, UNSPECIFIED 09/23/2011 MAYUR LSCS, KVNG R 530.81 GERD 09/23/2011 MAYUR LSCS, KVNG R 535.50 GASTRITIS UNSPEC 09/23/2011 MAYUR LSCS, KVNG R 562.00 DIVERTICULOSIS 09/23/2011 MAYUR LSCS, KVNG R 787.20 DYSPHAGIA, UNSPECIFIED 09/23/2011 MAYUR LSCS, KVNG R 530.81 GERD 09/23/2011 MAYUR LSCS, KVNG R 535.50 GASTRITIS UNSPEC 09/23/2011 MAYUR LSCS, KVNG R 562.00 DIVERTICULOSIS 09/23/2011 MAYUR LSCS, KVNG R 787.20 DYSPHAGIA, UNSPECIFIED 09/23/2011 MUOGHALU DDS, WILLARD N 530.81 GERD 09/23/2011 MUOGHALU DDS, WILLARD N 535.50 GASTRITIS UNSPEC 09/23/2011 MUOGHALU DDS, WILLARD N 562.00 DIVERTICULOSIS 09/23/2011 MUOGHALU DDS, WILLARD N 787.20 DYSPHAGIA, UNSPECIFIED 12/25/2011 MUOGHALU DDS, WILLARD N 786.50 UNSPECIFIED CHEST PAIN 12/25/2011 [facility], KVNG R 786.50 UNSPECIFIED CHEST PAIN 12/25/2011 786.50 UNSPECIFIED CHEST PAIN 12/25/2011 786.50 UNSPECIFIED CHEST PAIN 12/25/2011 [facility], KVNG R 786.50 UNSPECIFIED CHEST PAIN 12/25/2011 786.50 UNSPECIFIED CHEST PAIN 12/25/2011 786.50 UNSPECIFIED CHEST PAIN 12/25/2011 786.50 UNSPECIFIED CHEST PAIN 12/25/2011 786.50 UNSPECIFIED CHEST PAIN 12/25/2011 786.50 UNSPECIFIED CHEST PAIN 12/25/2011 786.50 UNSPECIFIED CHEST PAIN 12/25/2011 786.50 UNSPECIFIED CHEST PAIN 12/25/2011 786.50 UNSPECIFIED CHEST PAIN 12/25/2011 786.50 UNSPECIFIED CHEST PAIN 12/25/2011 [facility], KVNG R 786.50 UNSPECIFIED CHEST PAIN 12/25/2011 [facility], KVNG R 786.50 UNSPECIFIED CHEST PAIN 12/25/2011 [facility], KVNG R 786.50 UNSPECIFIED CHEST PAIN 12/25/2011 NATHALIE TORO MD 786.50 UNSPECIFIED CHEST PAIN 12/25/2011 [facility], KVNG R 786.50 UNSPECIFIED CHEST PAIN 12/25/2011 EDUARDO COBB JR 786.50 UNSPECIFIED CHEST PAIN 12/25/2011 [facility], KVNG R 786.50 UNSPECIFIED CHEST PAIN 12/25/2011 [facility], KVNG R 786.50 UNSPECIFIED CHEST PAIN 12/25/2011 LETTY WILKINS APRN 786.50 UNSPECIFIED CHEST PAIN 12/25/2011 NATHALIE TORO MD 786.50 UNSPECIFIED CHEST PAIN 12/25/2011 [facility], KVNG R 786.50 UNSPECIFIED CHEST PAIN 12/25/2011 NATHALIE TORO MD 786.50 UNSPECIFIED CHEST PAIN 12/25/2011 [facility], KVNG R 786.50 UNSPECIFIED CHEST PAIN 12/25/2011 [facility], KVNG R 786.50 UNSPECIFIED CHEST PAIN 12/25/2011 [facility], KVNG R 786.50 UNSPECIFIED CHEST PAIN 12/25/2011 WANG ROTOPRINTER, ROBERT 786.50 UNSPECIFIED CHEST PAIN 12/25/2011 WANG ROTOPRINTER, ROBERT 786.50 UNSPECIFIED CHEST PAIN 12/25/2011 FRANKY ROTOPRINTER, LETTY S 786.50 UNSPECIFIED CHEST PAIN 12/25/2011 [facility], KVNG R 786.50 UNSPECIFIED CHEST PAIN 12/25/2011 [facility], KVNG R 786.50 UNSPECIFIED CHEST PAIN 12/25/2011 WANG ROTOPRINTER, ROBERT 786.50 UNSPECIFIED CHEST PAIN 12/25/2011 [facility], KVNG R 786.50 UNSPECIFIED CHEST PAIN 12/25/2011 FRANKY ROTOPRINTER, LETTY S 786.50 UNSPECIFIED CHEST PAIN 12/25/2011 [facility], KVNG R 786.50 UNSPECIFIED CHEST PAIN 12/25/2011 [facility], KVNG R 786.50 UNSPECIFIED CHEST PAIN 12/25/2011 [facility], KVNG R 786.50 UNSPECIFIED CHEST PAIN 12/25/2011 MUOGHALU DDS, WILLARD N 786.50 UNSPECIFIED CHEST PAIN 02/06/2012 MUOGHALU DDS, WILLARD N 110.1 DERMATOPHYTOSIS OF NAIL 02/06/2012 MUOGHALU DDS, WILLARD N 780.8 GENERALIZED HYPERHIDROSIS 02/06/2012 MUOGHALU DDS, WILLARD N 782.1 RASH AND OTHER NONSPECIFIC SKIN ERUPTION 02/06/2012 [facility], KVNG R 110.1 DERMATOPHYTOSIS OF NAIL 02/06/2012 [facility], KVNG R 780.8 GENERALIZED HYPERHIDROSIS 02/06/2012 [facility], KVNG R 782.1 RASH AND OTHER NONSPECIFIC SKIN ERUPTION 02/06/2012 110.1 DERMATOPHYTOSIS OF NAIL 02/06/2012 780.8 GENERALIZED HYPERHIDROSIS 02/06/2012 782.1 RASH AND OTHER NONSPECIFIC SKIN ERUPTION 02/06/2012 110.1 DERMATOPHYTOSIS OF NAIL 02/06/2012 780.8 GENERALIZED HYPERHIDROSIS 02/06/2012 782.1 RASH AND OTHER NONSPECIFIC SKIN ERUPTION 02/06/2012 [facility], KVNG R 110.1 DERMATOPHYTOSIS OF NAIL 02/06/2012 [facility], KVNG R 780.8 GENERALIZED HYPERHIDROSIS 02/06/2012 [facility], KVNG R 782.1 RASH AND OTHER NONSPECIFIC SKIN ERUPTION 02/06/2012 110.1 DERMATOPHYTOSIS OF NAIL 02/06/2012 780.8 GENERALIZED HYPERHIDROSIS 02/06/2012 782.1 RASH AND OTHER NONSPECIFIC SKIN ERUPTION 02/06/2012 110.1 DERMATOPHYTOSIS OF NAIL 02/06/2012 780.8 GENERALIZED HYPERHIDROSIS 02/06/2012 782.1 RASH AND OTHER NONSPECIFIC SKIN ERUPTION 02/06/2012 110.1 DERMATOPHYTOSIS OF NAIL 02/06/2012 780.8 GENERALIZED HYPERHIDROSIS 02/06/2012 782.1 RASH AND OTHER NONSPECIFIC SKIN ERUPTION 02/06/2012 110.1 DERMATOPHYTOSIS OF NAIL 02/06/2012 780.8 GENERALIZED HYPERHIDROSIS 02/06/2012 782.1 RASH AND OTHER NONSPECIFIC SKIN ERUPTION 02/06/2012 110.1 DERMATOPHYTOSIS OF NAIL 02/06/2012 780.8 GENERALIZED HYPERHIDROSIS 02/06/2012 782.1 RASH AND OTHER NONSPECIFIC SKIN ERUPTION 02/06/2012 110.1 DERMATOPHYTOSIS OF NAIL 02/06/2012 780.8 GENERALIZED HYPERHIDROSIS 02/06/2012 782.1 RASH AND OTHER NONSPECIFIC SKIN ERUPTION 02/06/2012 110.1 DERMATOPHYTOSIS OF NAIL 02/06/2012 780.8 GENERALIZED HYPERHIDROSIS 02/06/2012 782.1 RASH AND OTHER NONSPECIFIC SKIN ERUPTION 02/06/2012 110.1 DERMATOPHYTOSIS OF NAIL 02/06/2012 780.8 GENERALIZED HYPERHIDROSIS 02/06/2012 782.1 RASH AND OTHER NONSPECIFIC SKIN ERUPTION 02/06/2012 110.1 DERMATOPHYTOSIS OF NAIL 02/06/2012 780.8 GENERALIZED HYPERHIDROSIS 02/06/2012 782.1 RASH AND OTHER NONSPECIFIC SKIN ERUPTION 02/06/2012 [facility], KVNG R 110.1 DERMATOPHYTOSIS OF NAIL 02/06/2012 [facility], KVNG R 780.8 GENERALIZED HYPERHIDROSIS 02/06/2012 [facility], KVNG R 782.1 RASH AND OTHER NONSPECIFIC SKIN ERUPTION 02/06/2012 [facility], KVNG R 110.1 DERMATOPHYTOSIS OF NAIL 02/06/2012 [facility], KVNG R 780.8 GENERALIZED HYPERHIDROSIS 02/06/2012 [facility], KVNG R 782.1 RASH AND OTHER NONSPECIFIC SKIN ERUPTION 02/06/2012 [facility], KVNG R 110.1 DERMATOPHYTOSIS OF NAIL 02/06/2012 [facility], KVNG R 780.8 GENERALIZED HYPERHIDROSIS 02/06/2012 [facility], KVNG R 782.1 RASH AND OTHER NONSPECIFIC SKIN ERUPTION 02/06/2012 NATHALIE TORO MD 110.1 DERMATOPHYTOSIS OF NAIL 02/06/2012 NATHALIE TORO MD 780.8 GENERALIZED HYPERHIDROSIS 02/06/2012 NATHALIE TORO MD 782.1 RASH AND OTHER NONSPECIFIC SKIN ERUPTION 02/06/2012 [facility], KVNG R 110.1 DERMATOPHYTOSIS OF NAIL 02/06/2012 [facility], KVNG R 780.8 GENERALIZED HYPERHIDROSIS 02/06/2012 [facility] 782.1 RASH AND OTHER NONSPECIFIC SKIN ERUPTION 02/06/2012 EDUARDO COBB JR 110.1 DERMATOPHYTOSIS OF NAIL 02/06/2012 EDUARDO COBB JR 780.8 GENERALIZED HYPERHIDROSIS 02/06/2012 EDUARDO COBB JR 782.1 RASH AND OTHER NONSPECIFIC SKIN ERUPTION 02/06/2012 [facility], KVNG R 110.1 DERMATOPHYTOSIS OF NAIL 02/06/2012 [facility], KVNG R 780.8 GENERALIZED HYPERHIDROSIS 02/06/2012 [facility] 782.1 RASH AND OTHER NONSPECIFIC SKIN ERUPTION 02/06/2012 [facility], KVNG R 110.1 DERMATOPHYTOSIS OF NAIL 02/06/2012 [facility], KVNG R 780.8 GENERALIZED HYPERHIDROSIS 02/06/2012 [facility] 782.1 RASH AND OTHER NONSPECIFIC SKIN ERUPTION 02/06/2012 FRANKY ROTOPRINTER LETTY S 110.1 DERMATOPHYTOSIS OF NAIL 02/06/2012 FRANKY ROTOPRINTER, LETTY S 780.8 GENERALIZED HYPERHIDROSIS 02/06/2012 FRANKY ROTOPRINTER, LETTY S 782.1 RASH AND OTHER NONSPECIFIC SKIN ERUPTION 02/06/2012 NATHALIE TORO MD 110.1 DERMATOPHYTOSIS OF NAIL 02/06/2012 NATHALIE TORO MD 780.8 GENERALIZED HYPERHIDROSIS 02/06/2012 NATHALIE TORO MD 782.1 RASH AND OTHER NONSPECIFIC SKIN ERUPTION 02/06/2012 [facility], KVNG R 110.1 DERMATOPHYTOSIS OF NAIL 02/06/2012 [facility], KVNG R 780.8 GENERALIZED HYPERHIDROSIS 02/06/2012 [facility], KVNG R 782.1 RASH AND OTHER NONSPECIFIC SKIN ERUPTION 02/06/2012 NATHALIE TORO MD 110.1 DERMATOPHYTOSIS OF NAIL 02/06/2012 NATHALIE TORO MD 780.8 GENERALIZED HYPERHIDROSIS 02/06/2012 NATHALIE TORO MD 782.1 RASH AND OTHER NONSPECIFIC SKIN ERUPTION 02/06/2012 [facility] KV[facility] 110.1 DERMATOPHYTOSIS OF NAIL 02/06/2012 [facility] 780.8 GENERALIZED HYPERHIDROSIS 02/06/2012 [facility], KVNG R 782.1 RASH AND OTHER NONSPECIFIC SKIN ERUPTION 02/06/2012 [facility], KVNG R 110.1 DERMATOPHYTOSIS OF NAIL 02/06/2012 [facility], KVNG R 780.8 GENERALIZED HYPERHIDROSIS 02/06/2012 [facility], KVNG R 782.1 RASH AND OTHER NONSPECIFIC SKIN ERUPTION 02/06/2012 [facility], KVNG R 110.1 DERMATOPHYTOSIS OF NAIL 02/06/2012 [facility], KVNG R 780.8 GENERALIZED HYPERHIDROSIS 02/06/2012 [facility], KVNG R 782.1 RASH AND OTHER NONSPECIFIC SKIN ERUPTION 02/06/2012 WANG ROTOPRINTER, ROBERT 110.1 DERMATOPHYTOSIS OF NAIL 02/06/2012 WANG DAY ROBERT 780.8 GENERALIZED HYPERHIDROSIS 02/06/2012 WANG ROTOPRINTER, ROBERT 782.1 RASH AND OTHER NONSPECIFIC SKIN ERUPTION 02/06/2012 WANG ROTOPRINTER, ROBERT 110.1 DERMATOPHYTOSIS OF NAIL 02/06/2012 WANG ROTOPRINTER, ROBERT 780.8 GENERALIZED HYPERHIDROSIS 02/06/2012 WANG ROTOPRINTER, ROBERT 782.1 RASH AND OTHER NONSPECIFIC SKIN ERUPTION 02/06/2012 SHEILA WILKINS APRNA S 110.1 DERMATOPHYTOSIS OF NAIL 02/06/2012 SHEILA WILKINS APRNA S 780.8 GENERALIZED HYPERHIDROSIS 02/06/2012 FRANKY DAYANTONIALETTY S 782.1 RASH AND OTHER NONSPECIFIC SKIN ERUPTION 02/06/2012 [facility], KVNG R 110.1 DERMATOPHYTOSIS OF NAIL 02/06/2012 [facility], KVNG R 780.8 GENERALIZED HYPERHIDROSIS 02/06/2012 [facility], KVNG R 782.1 RASH AND OTHER NONSPECIFIC SKIN ERUPTION 02/06/2012 [facility], KVNG R 110.1 DERMATOPHYTOSIS OF NAIL 02/06/2012 [facility], KVNG R 780.8 GENERALIZED HYPERHIDROSIS 02/06/2012 [facility], KVNG R 782.1 RASH AND OTHER NONSPECIFIC SKIN ERUPTION 02/06/2012 WANG ROTOPRINTER, ROBERT 110.1 DERMATOPHYTOSIS OF NAIL 02/06/2012 WANG ROTOPRINTER, ROBERT 780.8 GENERALIZED HYPERHIDROSIS 02/06/2012 WANG ROTOPRINTER, ROBERT 782.1 RASH AND OTHER NONSPECIFIC SKIN ERUPTION 02/06/2012 [facility], KVNG R 110.1 DERMATOPHYTOSIS OF NAIL 02/06/2012 [facility], KVNG R 780.8 GENERALIZED HYPERHIDROSIS 02/06/2012 [facility], KVNG R 782.1 RASH AND OTHER NONSPECIFIC SKIN ERUPTION 02/06/2012 FRANKY ROTOPRINTER LETTY S 110.1 DERMATOPHYTOSIS OF NAIL 02/06/2012 FRANKY ROTOPRINTER, LETTY S 780.8 GENERALIZED HYPERHIDROSIS 02/06/2012 FRANKY ROTOPRINTER, LETTY S 782.1 RASH AND OTHER NONSPECIFIC SKIN ERUPTION 02/06/2012 [facility], KVNG R 110.1 DERMATOPHYTOSIS OF NAIL 02/06/2012 [facility], KVNG R 780.8 GENERALIZED HYPERHIDROSIS 02/06/2012 [facility], KVNG R 782.1 RASH AND OTHER NONSPECIFIC SKIN ERUPTION 02/06/2012 [facility], KVNG R 110.1 DERMATOPHYTOSIS OF NAIL 02/06/2012 [facility], KVNG R 780.8 GENERALIZED HYPERHIDROSIS 02/06/2012 [facility], KVNG R 782.1 RASH AND OTHER NONSPECIFIC SKIN ERUPTION 02/06/2012 [facility], KVNG R 110.1 DERMATOPHYTOSIS OF NAIL 02/06/2012 [facility], KVNG R 780.8 GENERALIZED HYPERHIDROSIS 02/06/2012 [facility], KVNG R 782.1 RASH AND OTHER NONSPECIFIC SKIN ERUPTION 02/06/2012 MUOGHALU DDS, WILLARD N 110.1 DERMATOPHYTOSIS OF NAIL 02/06/2012 MUOGHALU DDS, WILLARD N 780.8 GENERALIZED HYPERHIDROSIS 02/06/2012 MUOGHALU DDS, WILLARD N 782.1 RASH AND OTHER NONSPECIFIC SKIN ERUPTION 02/08/2012 MUOGHALU DDS, WILLARD N V76.2 CERVICAL CANCER SCREENING (PAP SMEAR) 02/08/2012 [facility], KVNG R V76.2 CERVICAL CANCER SCREENING (PAP SMEAR) 02/08/2012 V76.2 CERVICAL CANCER SCREENING (PAP SMEAR) 02/08/2012 V76.2 CERVICAL CANCER SCREENING (PAP SMEAR) 02/08/2012 [facility], KVNG R V76.2 CERVICAL CANCER SCREENING (PAP SMEAR) 02/08/2012 V76.2 CERVICAL CANCER SCREENING (PAP SMEAR) 02/08/2012 V76.2 CERVICAL CANCER SCREENING (PAP SMEAR) 02/08/2012 V76.2 CERVICAL CANCER SCREENING (PAP SMEAR) 02/08/2012 V76.2 CERVICAL CANCER SCREENING (PAP SMEAR) 02/08/2012 V76.2 CERVICAL CANCER SCREENING (PAP SMEAR) 02/08/2012 V76.2 CERVICAL CANCER SCREENING (PAP SMEAR) 02/08/2012 V76.2 CERVICAL CANCER SCREENING (PAP SMEAR) 02/08/2012 V76.2 CERVICAL CANCER SCREENING (PAP SMEAR) 02/08/2012 V76.2 CERVICAL CANCER SCREENING (PAP SMEAR) 02/08/2012 [facility], KVNG R V76.2 CERVICAL CANCER SCREENING (PAP SMEAR) 02/08/2012 [facility], KVNG R V76.2 CERVICAL CANCER SCREENING (PAP SMEAR) 02/08/2012 [facility], KVNG R V76.2 CERVICAL CANCER SCREENING (PAP SMEAR) 02/08/2012 NATHALIE TORO MD V76.2 CERVICAL CANCER SCREENING (PAP SMEAR) 02/08/2012 [facility], KVNG R V76.2 CERVICAL CANCER SCREENING (PAP SMEAR) 02/08/2012 EDUARDO COBB JR V76.2 CERVICAL CANCER SCREENING (PAP SMEAR) 02/08/2012 [facility], KVNG R V76.2 CERVICAL CANCER SCREENING (PAP SMEAR) 02/08/2012 [facility], KVNG R V76.2 CERVICAL CANCER SCREENING (PAP SMEAR) 02/08/2012 LETTY WILKINS APRN V76.2 CERVICAL CANCER SCREENING (PAP SMEAR) 02/08/2012 NATHALIE TORO MD V76.2 CERVICAL CANCER SCREENING (PAP SMEAR) 02/08/2012 [facility], KVNG R V76.2 CERVICAL CANCER SCREENING (PAP SMEAR) 02/08/2012 NATHALIE TORO MD V76.2 CERVICAL CANCER SCREENING (PAP SMEAR) 02/08/2012 [facility], KVNG R V76.2 CERVICAL CANCER SCREENING (PAP SMEAR) 02/08/2012 [facility], KVNG R V76.2 CERVICAL CANCER SCREENING (PAP SMEAR) 02/08/2012 [facility], KVNG R V76.2 CERVICAL CANCER SCREENING (PAP SMEAR) 02/08/2012 ROBERT PIÑA APRN V76.2 CERVICAL CANCER SCREENING (PAP SMEAR) 02/08/2012 ROBERT PIÑA APRN V76.2 CERVICAL CANCER SCREENING (PAP SMEAR) 02/08/2012 LETTY WILKINS APRN V76.2 CERVICAL CANCER SCREENING (PAP SMEAR) 02/08/2012 [facility], KVNG R V76.2 CERVICAL CANCER SCREENING (PAP SMEAR) 02/08/2012 [facility], KVNG R V76.2 CERVICAL CANCER SCREENING (PAP SMEAR) 02/08/2012 ROBERT PIÑA APRN V76.2 CERVICAL CANCER SCREENING (PAP SMEAR) 02/08/2012 [facility], KVNG R V76.2 CERVICAL CANCER SCREENING (PAP SMEAR) 02/08/2012 LETTY WILKINS APRN V76.2 CERVICAL CANCER SCREENING (PAP SMEAR) 02/08/2012 [facility], KVNG R V76.2 CERVICAL CANCER SCREENING (PAP SMEAR) 02/08/2012 [facility], KVNG R V76.2 CERVICAL CANCER SCREENING (PAP SMEAR) 02/08/2012 [facility], KV[facility] R V76.2 CERVICAL CANCER SCREENING (PAP SMEAR) 02/08/2012 IWLLARD GOEL DDS N V76.2 CERVICAL CANCER SCREENING (PAP SMEAR) 07/30/2012 MUOGHALU DDS, WILLARD N V04.81 FLU DX (3 YRS AND ABOVE, IM) 07/30/2012 [facility], KVNG R V04.81 FLU DX (3 YRS AND ABOVE, IM) 07/30/2012 V04.81 FLU DX (3 YRS AND ABOVE, IM) 07/30/2012 V04.81 FLU DX (3 YRS AND ABOVE, IM) 07/30/2012 [facility], KVNG R V04.81 FLU DX (3 YRS AND ABOVE, IM) 07/30/2012 V04.81 FLU DX (3 YRS AND ABOVE, IM) 07/30/2012 V04.81 FLU DX (3 YRS AND ABOVE, IM) 07/30/2012 V04.81 FLU DX (3 YRS AND ABOVE, IM) 07/30/2012 V04.81 FLU DX (3 YRS AND ABOVE, IM) 07/30/2012 V04.81 FLU DX (3 YRS AND ABOVE, IM) 07/30/2012 V04.81 FLU DX (3 YRS AND ABOVE, IM) 07/30/2012 V04.81 FLU DX (3 YRS AND ABOVE, IM) 07/30/2012 V04.81 FLU DX (3 YRS AND ABOVE, IM) 07/30/2012 V04.81 FLU DX (3 YRS AND ABOVE, IM) 07/30/2012 [facility], KVNG R V04.81 FLU DX (3 YRS AND ABOVE, IM) 07/30/2012 [facility], KVNG R V04.81 FLU DX (3 YRS AND ABOVE, IM) 07/30/2012 [facility], KV[facility] R V04.81 FLU DX (3 YRS AND ABOVE, IM) 07/30/2012 NATHALIE OTRO MD V04.81 FLU DX (3 YRS AND ABOVE, IM) 07/30/2012 [facility], KVNG R V04.81 FLU DX (3 YRS AND ABOVE, IM) 07/30/2012 EDUARDO COBB JR S V04.81 FLU DX (3 YRS AND ABOVE, IM) 07/30/2012 [facility], KVNG R V04.81 FLU DX (3 YRS AND ABOVE, IM) 07/30/2012 [facility], KV[facility] R V04.81 FLU DX (3 YRS AND ABOVE, IM) 07/30/2012 LETTY WILKINS APRN V04.81 FLU DX (3 YRS AND ABOVE, IM) 07/30/2012 NATHALIE TORO MD V04.81 FLU DX (3 YRS AND ABOVE, IM) 07/30/2012 [facility], KVNG R V04.81 FLU DX (3 YRS AND ABOVE, IM) 07/30/2012 NATHALIE TORO MD V04.81 FLU DX (3 YRS AND ABOVE, IM) 07/30/2012 [facility], KVNG R V04.81 FLU DX (3 YRS AND ABOVE, IM) 07/30/2012 [facility], KVNG R V04.81 FLU DX (3 YRS AND ABOVE, IM) 07/30/2012 [facility], KVNG R V04.81 FLU DX (3 YRS AND ABOVE, IM) 07/30/2012 WANG ROTOPRINTER, ROBERT V04.81 FLU DX (3 YRS AND ABOVE, IM) 07/30/2012 WANG ROTOPRINTER, ROBERT V04.81 FLU DX (3 YRS AND ABOVE, IM) 07/30/2012 LETTY WILKINS APRN S V04.81 FLU DX (3 YRS AND ABOVE, IM) 07/30/2012 MAY[facility] LSCS, KVNG R V04.81 FLU DX (3 YRS AND ABOVE, IM) 07/30/2012 MAY[facility] LSCS, KVNG R V04.81 FLU DX (3 YRS AND ABOVE, IM) 07/30/2012 WANG DAY, ROBERT V04.81 FLU DX (3 YRS AND ABOVE, IM) 07/30/2012 MAYUR LSCS, KVNG R V04.81 FLU DX (3 YRS AND ABOVE, IM) 07/30/2012 LETTY WILKINS APRN S V04.81 FLU DX (3 YRS AND ABOVE, IM) 07/30/2012 MAYUR LSCS, KVNG R V04.81 FLU DX (3 YRS AND ABOVE, IM) 07/30/2012 MAY[facility] LSCS, KVNG R V04.81 FLU DX (3 YRS AND ABOVE, IM) 07/30/2012 MAYUR LSCS, KVNG R V04.81 FLU DX (3 YRS AND ABOVE, IM) 11/04/2013 LETTY WILKINS APRN 388.70 OTALGIA 11/04/2013 NATHALIE TORO MD 388.70 OTALGIA 11/04/2013 MAY[facility] LSCS, KVNG R 388.70 OTALGIA 11/04/2013 MUNA SAUNDERS, NATHALIE 388.70 OTALGIA 11/04/2013 [facility] 388.70 OTALGIA 11/04/2013 MAYUR LSCS, KVNG R 388.70 OTALGIA 11/04/2013 MAYUR LSCS, KVNG R 388.70 OTALGIA 11/04/2013 WANG ROTOPRINTER, ROBERT 388.70 OTALGIA 11/04/2013 WANG ROTOPRINTER, ROBERT 388.70 OTALGIA 11/04/2013 FRANKY ROTOPRINTER LETTY S 388.70 OTALGIA 11/04/2013 [facility] R 388.70 OTALGIA 11/04/2013 [facility] 388.70 OTALGIA 11/04/2013 WANG ROTOPRINTER, ROBERT 388.70 OTALGIA 11/04/2013 [facility], KVNG R 388.70 OTALGIA 11/04/2013 FRANKY ROTOPRINTERANTONIA VazquezNDA S 388.70 OTALGIA 11/04/2013 [facility] 388.70 OTALGIA 11/04/2013 [facility] R 388.70 OTALGIA 11/04/2013 [facility], KVNG R 388.70 OTALGIA 05/23/2014 FRANKY ROTOPRINTER, LETTY S 616.10 VAGINITIS AND VULVOVAGINITIS UNSPECIFIED 05/23/2014 [facility], KVNG R 616.10 VAGINITIS AND VULVOVAGINITIS UNSPECIFIED 05/23/2014 [facility], KVNG R 616.10 VAGINITIS AND VULVOVAGINITIS UNSPECIFIED 05/23/2014 WANG ROTOPRINTER, ROBERT 616.10 VAGINITIS AND VULVOVAGINITIS UNSPECIFIED 05/23/2014 [facility], KVNG R 616.10 VAGINITIS AND VULVOVAGINITIS UNSPECIFIED 05/23/2014 FRANKY ROTOPRINTER, LETTY S 616.10 VAGINITIS AND VULVOVAGINITIS UNSPECIFIED 05/23/2014 [facility], KVNG R 616.10 VAGINITIS AND VULVOVAGINITIS UNSPECIFIED 05/23/2014 [facility], KVNG R 616.10 VAGINITIS AND VULVOVAGINITIS UNSPECIFIED 05/23/2014 [facility], KVNG R 616.10 VAGINITIS AND VULVOVAGINITIS UNSPECIFIED 05/26/2014 [facility] LSCS, KVNG R 272.4 HYPERLIPIDEMIA 05/26/2014 [facility], KVNG R 272.4 HYPERLIPIDEMIA 05/26/2014 WANG ROTOPRINTER, ROBERT 272.4 HYPERLIPIDEMIA 05/26/2014 [facility], KVNG R 272.4 HYPERLIPIDEMIA 05/26/2014 LETTY WILKINS APRN S 272.4 HYPERLIPIDEMIA 05/26/2014 [facility], KVNG R 272.4 HYPERLIPIDEMIA 05/26/2014 [facility], KVNG R 272.4 HYPERLIPIDEMIA 05/26/2014 [facility], KVNG R 272.4 HYPERLIPIDEMIA 06/21/2014 WANG ROTOPRINTERSHIRA VazquezROBERT 300.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 06/21/2014 [facility] R 300.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 06/21/2014 LETTY WILKINS APRN S 300.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 06/21/2014 [facility] R 300.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 06/21/2014 [facility], KVNG R 300.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 06/21/2014 [facility] 300.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 07/28/2014 LETTY WILKINS APRN S 789.00 ABDOMINAL PAIN UNSPECIFIED SITE 07/28/2014 [facility] KV[facility] R 789.00 ABDOMINAL PAIN UNSPECIFIED SITE 07/28/2014 [facility] R 789.00 ABDOMINAL PAIN UNSPECIFIED SITE 07/28/2014 [facility] R 789.00 ABDOMINAL PAIN UNSPECIFIED SITE 07/31/2014 LETTY WILKINS Ot 562.10 07/31/2014 LETTY WILKINS Ot 625.8 08/08/2014 Ot 229.0 08/08/2014 Ot 255.9 08/08/2014 Ot 785.0 08/08/2014 Ot 786.50 08/08/2014 Ot V76.12 08/08/2014 Ot 787.02 08/08/2014 Ot 787.3 08/08/2014 Ot 789.00 08/08/2014 Ot 244.9 08/08/2014 Ot 250.00 08/08/2014 Ot 401.9 08/08/2014 Ot 530.81 08/08/2014 Ot 562.10 08/08/2014 Ot 780.39 08/08/2014 Ot V58.69 08/08/2014 Ot 553.3 08/08/2014 LETTY WILKINS Ot V76.12 08/08/2014 JEFFERY HALL Ot 473.9 08/08/2014 ELTTY WILKINS Ot 562.10 08/08/2014 LETTY WILKINS Ot 625.8 08/16/2014 LETTY WILKINS Ot 562.10 08/16/2014 LETTY WILKINS Ot 625.8 08/30/2014 LETTY WILKINS Ot 789.00 10/18/2014 [facility], KVNG R V18.0 FAMILY HISTORY OF DIABETES MELLITUS 10/18/2014 [facility], KVNG R V18.0 FAMILY HISTORY OF DIABETES MELLITUS 11/26/2014 [facility], KVNG R 465.9 UPPER RESPIRATORY INFECTION 11/26/2014 [facility], KVNG R 719.41 PAIN- SHOULDER 12/29/2014 Ot 229.0 12/29/2014 Ot 255.9 12/29/2014 Ot 785.0 12/29/2014 Ot 786.50 12/29/2014 Ot V76.12 12/29/2014 Ot 787.02 12/29/2014 Ot 787.3 12/29/2014 Ot 789.00 12/29/2014 Ot 244.9 12/29/2014 Ot 250.00 12/29/2014 Ot 401.9 12/29/2014 Ot 530.81 12/29/2014 Ot 562.10 12/29/2014 Ot 780.39 12/29/2014 Ot V58.69 12/29/2014 Ot 553.3 12/29/2014 LETTY WILKINS Ot V76.12 12/29/2014 JEFFERY HALL Ot 473.9 12/29/2014 LETTY WILKINS Ot 562.10 12/29/2014 LETTY WILKINS Ot 625.8 12/29/2014 FRANKYLETTY ORTEGA TRANSLITERATOR Ot 789.00 01/05/2015 ALEX VINESON D TRANSLITERATOR Ot 726.0 01/05/2015 VINES, VITA D TRANSLITERATOR Ot 726.2 01/05/2015 VINES, VITA D TRANSLITERATOR Ot V57.1 01/06/2015 VINES, VITA D TRANSLITERATOR Ot 726.0 01/06/2015 VINES, VITA D TRANSLITERATOR Ot 726.2 01/06/2015 VINES, VITA D TRANSLITERATOR Ot V57.1 01/06/2015 VINES, VITA D TRANSLITERATOR Ot 726.0 01/06/2015 VINES, VITA D TRANSLITERATOR Ot 726.2 01/06/2015 VINESALEXON D TRANSLITERATOR Ot V57.1 01/25/2015 VINES, VITA D TRANSLITERATOR Ot 726.0 01/25/2015 VINES VITA D TRANSLITERATOR Ot 726.2 01/25/2015 ALEX VINESON D TRANSLITERATOR Ot V57.1 01/25/2015 VINESALEXON D TRANSLITERATOR Ot 726.0 01/25/2015 VINESALEXON D TRANSLITERATOR Ot 726.2 01/25/2015 ALEX VINESON D TRANSLITERATOR Ot V57.1 01/25/2015 VINES VITA D TRANSLITERATOR Ot 726.0 01/25/2015 VINES, VITA D TRANSLITERATOR Ot 726.2 01/25/2015 ALEX VINESON D TRANSLITERATOR Ot V57.1 01/25/2015 ALEX VINESON D TRANSLITERATOR Ot 726.0 01/25/2015 VINESALEXON D TRANSLITERATOR Ot 726.2 01/25/2015 ALEX VINESON D TRANSLITERATOR Ot V57.1 02/14/2015 VINES, VITA D TRANSLITERATOR Ot 726.0 02/14/2015 VINES, VITA D TRANSLITERATOR Ot 726.2 02/14/2015 VINES, VITA D TRANSLITERATOR Ot V57.1 02/22/2015 VINES, VITA D TRANSLITERATOR Ot 726.0 02/22/2015 ALEX VINESON D TRANSLITERATOR Ot 726.2 02/22/2015 ALEX VINESON D TRANSLITERATOR Ot V57.1 02/22/2015 VITA VINES TRANSLITERATOR Ot 726.0 02/22/2015 VITA VINES TRANSLITERATOR Ot 726.2 02/22/2015 VITA VINES TRANSLITERATOR Ot V57.1 03/09/2015 VITA VINES TRANSLITERATOR Ot 726.0 03/09/2015 VITA VINES TRANSLITERATOR Ot 726.2 03/09/2015 VITA VINES TRANSLITERATOR Ot V57.1 03/09/2015 VITA VINES TRANSLITERATOR Ot 726.0 03/09/2015 VITA VINES TRANSLITERATOR Ot 726.2 03/09/2015 VITA VINES TRANSLITERATOR Ot V57.1 03/27/2015 VITA VINES TRANSLITERATOR Ot 726.0 03/27/2015 VITA VINES TRANSLITERATOR Ot 726.2 03/27/2015 VITA VINES TRANSLITERATOR Ot V57.1 03/27/2015 VITA VINES TRANSLITERATOR Ot 726.0 03/27/2015 VITA VINES TRANSLITERATOR Ot 726.2 03/27/2015 VITA VINES TRANSLITERATOR Ot V57.1 04/02/2015 VITA VINES TRANSLITERATOR Ot 726.0 ADHESIVE CAPSULIT SHLDER 04/02/2015 VITA VINES TRANSLITERATOR Ot 726.2 SHOULDER REGION DIS NEC 04/02/2015 VITA VINES TRANSLITERATOR Ot V57.1 PHYSICAL THERAPY NEC 04/04/2015 VITA VINES TRANSLITERATOR Ot 726.0 04/04/2015 VITA VINES TRANSLITERATOR Ot 726.2 04/04/2015 VITA VINES TRANSLITERATOR Ot V57.1 04/04/2015 VITA VINES TRANSLITERATOR Ot 726.0 04/04/2015 VITA VINES TRANSLITERATOR Ot 726.2 04/04/2015 VITA VINES TRANSLITERATOR Ot V57.1 04/05/2015 VITA VINES TRANSLITERATOR Ot 726.0 04/05/2015 VITA VINES TRANSLITERATOR Ot 726.2 04/05/2015 VITA VINES TRANSLITERATOR Ot V57.1 04/05/2015 VITA VINES TRANSLITERATOR Ot 726.0 04/05/2015 VITA VINES TRANSLITERATOR Ot 726.2 04/05/2015 VITA VINES TRANSLITERATOR Ot V57.1 04/17/2015 VITA VINES TRANSLITERATOR Ot 726.0 04/17/2015 VITA VINES TRANSLITERATOR Ot 726.2 04/17/2015 VITA VINES TRANSLITERATOR Ot V57.1 04/17/2015 VITA VINES TRANSLITERATOR Ot 726.0 04/17/2015 VITA VINES TRANSLITERATOR Ot 726.2 04/17/2015 VITA VINES TRANSLITERATOR Ot V57.1 04/27/2015 VITA VINES TRANSLITERATOR Ot 726.0 04/27/2015 VITA VINES TRANSLITERATOR Ot 726.2 04/27/2015 VITA VINES TRANSLITERATOR Ot V57.1 04/27/2015 VITA VINES TRANSLITERATOR Ot 726.0 04/27/2015 VITA VINES TRANSLITERATOR Ot 726.2 04/27/2015 VITA VINES TRANSLITERATOR Ot V57.1 05/08/2015 VITA VINES TRANSLITERATOR Ot 726.0 05/08/2015 VITA VINES TRANSLITERATOR Ot 726.2 05/08/2015 VITA VINES TRANSLITERATOR Ot V57.1 05/09/2015 VITA VINES TRANSLITERATOR Ot 726.0 ADHESIVE CAPSULIT SHLDER 05/09/2015 VITA VINES TRANSLITERATOR Ot 726.2 SHOULDER REGION DIS NEC 05/09/2015 VITA VINES TRANSLITERATOR Ot V57.1 PHYSICAL THERAPY NEC 05/12/2015 Ot 785.0 05/12/2015 Ot 786.50 05/12/2015 Ot V76.12 05/12/2015 Ot 787.02 05/12/2015 Ot 787.3 05/12/2015 Ot 789.00 05/12/2015 Ot 244.9 05/12/2015 Ot 250.00 05/12/2015 Ot 401.9 05/12/2015 Ot 530.81 05/12/2015 Ot 562.10 05/12/2015 Ot 780.39 05/12/2015 Ot V58.69 05/12/2015 Ot 553.3 05/12/2015 LETTY WILKINSP Ot V76.12 05/12/2015 JEFFERY HALL DIRECTOR OF WORKFORCE DEVELOPMENT Ot 473.9 05/12/2015 LETTY WILKINSP Ot 562.10 05/12/2015 LETTY WILKINSP Ot 625.8 05/12/2015 LETTY WILKINS Ot 789.00 06/07/2015 MISHA SAUNDERS, PATRIA Bella Ot M75.01 ADHESIVE CAPSULITIS OF RIGHT SHOULDER 06/07/2015 MISHA SAUNDERS, PATRIA Bella Ot S43.431A SUPERIOR GLENOID LABRUM LESION OF RIGHT 06/15/2015 MISHA SAUNDERS, PATRIA Bella Ot M75.101 06/15/2015 MISHA SAUNDERS, PATRIA Bella Ot Z01.818 06/15/2015 MISHA SAUNDERS, PATRIA Bella Ot Z11.2 11/10/2015 Ot 785.0 11/10/2015 Ot 786.50 11/10/2015 Ot V76.12 11/10/2015 Ot 787.02 11/10/2015 Ot 787.3 11/10/2015 Ot 789.00 11/10/2015 Ot 244.9 11/10/2015 Ot 250.00 11/10/2015 Ot 401.9 11/10/2015 Ot 530.81 11/10/2015 Ot 562.10 11/10/2015 Ot 780.39 11/10/2015 Ot V58.69 11/10/2015 Ot 553.3 11/10/2015 LETTY WILKINSP Ot V76.12 11/10/2015 JEFFERY HALL DIRECTOR OF WORKFORCE DEVELOPMENT Ot 473.9 11/10/2015 LETTY WILKINSP Ot 562.10 11/10/2015 LETTY WILKINSP Ot 625.8 11/10/2015 LETTY WILKINSP Ot 789.00 11/10/2015 VITA VINES TRANSLITERATOR Ot 726.0 11/10/2015 VITA VINES TRANSLITERATOR Ot 726.10 11/21/2015 KAY NARANJO APRN Ot N92.1 11/21/2015 KAY NARANJO ROTOPRINTER Ot Z87.42 11/27/2015 KAY NARANJO ROTOPRINTER Ot R92.2 12/06/2015 KAY NARANJO ROTOPRINTER Ot N92.1 12/06/2015 KAY NARANJO ROTOPRINTER Ot Z87.42 12/14/2015 Ot 785.0 TACHYCARDIA NOS 12/14/2015 Ot 786.50 CHEST PAIN NOS 12/14/2015 Ot V76.12 OTH SCREEN MAMMO-MALIGN NEOPLASM OF [place] 12/14/2015 Ot 787.02 NAUSEA ALONE 12/14/2015 Ot 787.3 FLATUL/ERUCTAT/GAS PAIN 12/14/2015 Ot 789.00 ABDOMINAL PAIN, UNSPECIFIED SITE 12/14/2015 Ot 244.9 HYPOTHYROIDISM NOS 12/14/2015 Ot 250.00 DIAB SILVERIO WO COMPL, TYPE II OR UNSPEC TY 12/14/2015 Ot 401.9 HYPERTENSION NOS 12/14/2015 Ot 530.81 ESOPHAGEAL REFLUX 12/14/2015 Ot 562.10 DIVERTICULOSIS COLON (W/O MENT OF HEMORR 12/14/2015 Ot 780.39 OTHER CONVULSIONS 12/14/2015 Ot V58.69 OTH MED,LT,CURRENT USE 12/14/2015 Ot 553.3 DIAPHRAGMATIC HERNIA 12/14/2015 LETTY WILKINSP Ot V76.12 OTH SCREEN MAMMO-MALIGN NEOPLASM OF [place] 12/14/2015 JEFFERY HALL DIRECTOR OF WORKFORCE DEVELOPMENT Ot 473.9 CHRONIC SINUSITIS NOS 12/14/2015 LETTY WILKINS TRANSLITERATOR Ot 562.10 DIVERTICULOSIS COLON (W/O MENT OF HEMORR 12/14/2015 LETTY WILKINS TRANSLITERATOR Ot 625.8 FEM GENITAL SYMPTOMS NEC 12/14/2015 LETTY WILKINSP Ot 789.00 ABDOMINAL PAIN, UNSPECIFIED SITE 12/14/2015 VITA VINES TRANSLITERATOR Ot 726.0 ADHESIVE CAPSULIT SHLDER 12/14/2015 VITA VINES TRANSLITERATOR Ot 726.10 BURSAE TENDONS DIS SHLDER NOS 12/14/2015 KAY NARANJO ROTOPRINTER Ot R92.2 INCONCLUSIVE MAMMOGRAM 12/14/2015 KAY NARANJO ROTOPRINTER Ot N92.1 EXCESSIVE AND FREQUENT MENSTRUATION WITH 12/14/2015 KAY NARANJO ROTOPRINTER Ot Z87.42 PERSONAL HISTORY OF OTH DISEASES OF THE 12/19/2015 MCALLEN AN BARROSO Ot K57.30 DVRTCLOS OF LG INT W/O PERFORATION OR AB 12/19[facility]11 ENCOUNTER FOR SCREENING FOR MALIGNANT NE 12/19/2015 [facility] Z86.010 PERSONAL HISTORY OF COLONIC POLYPS 12/20/2015 [facility] K57.30 DVRTCLOS OF LG INT W/O PERFORATION OR AB 12/20/2015 MCALLEN AN BARROSO Ot Z12.11 ENCOUNTER FOR SCREENING FOR MALIGNANT NE 12/20/2015 MCALLEN AN BARROSO Ot Z86.010 PERSONAL HISTORY OF COLONIC POLYPS 01/11/2016 MISHA SAUNDERS, PATRIA Bella Ot M75.101 UNSP ROTATR-CUFF TEAR/RUPTR OF RIGHT TEREZA 01/11/2016 PATRIA CABRAL MD Ot Z01.818 ENCOUNTER FOR OTHER PREPROCEDURAL EXAMIN 01/11/2016 PATRIA CABRAL MD Ot Z11.2 ENCOUNTER FOR SCREENING FOR OTHER BACTER 01/12/2016 LETTY WILKINS Ot N83.29 OTHER OVARIAN CYSTS 01/24/2016 LETTY WILKINS Ot N83.29 OTHER OVARIAN CYSTS 10/08/2016 PATRIA CABRAL MD Ot M75.101 UNSP ROTATR-CUFF TEAR/RUPTR OF RIGHT TEREZA 10/08/2016 PATRIA CABRAL MD Ot Z01.818 ENCOUNTER FOR OTHER PREPROCEDURAL EXAMIN 10/08/2016 PATRIA CABRAL MD Ot Z11.2 ENCOUNTER FOR SCREENING FOR OTHER BACTER 10/08/2016 LETTY WILKINS Ot N83.29 OTHER OVARIAN CYSTS 10/10/2016 LETTY WILKINS Ot N83.201 UNSPECIFIED OVARIAN CYST, RIGHT SIDE 10/28/2016 LETTY WILKINS Ot N83.201 UNSPECIFIED OVARIAN CYST, RIGHT SIDE 11/14/2016 JACQUELINE SAUNDERS, HAO Rangel Ot Z12.31 ENCNTR SCREEN MAMMOGRAM FOR MALIGNANT NE 11/15/2016 HAO PHILLIPS MD Ot Z12.31 ENCNTR SCREEN MAMMOGRAM FOR MALIGNANT NE 11/26/2016 PATRIA EASTON DO S Ot N92.0 EXCESSIVE AND FREQUENT MENSTRUATION WITH 11/26/2016 RUSTAM BARROSO PATRIA S Ot Z01.812 ENCOUNTER FOR PREPROCEDURAL LABORATORY E 11/26/2016 RUSTAM BARROSO PATRIA S Ot Z11.2 ENCOUNTER FOR SCREENING FOR OTHER BACTER 11/27/2016 HAO PHILLIPS MD Ot Z12.31 ENCNTR SCREEN MAMMOGRAM FOR MALIGNANT NE 11/28/2016 PATRIA CABRAL MD Ot M75.101 UNSP ROTATR-CUFF TEAR/RUPTR OF RIGHT TEREZA 11/28/2016 PATRIA CABRAL MD Ot Z01.818 ENCOUNTER FOR OTHER PREPROCEDURAL EXAMIN 11/28/2016 PATRIA CABRAL MD Ot Z11.2 ENCOUNTER FOR SCREENING FOR OTHER BACTER 11/28/2016 LETTY WILKINS Ot N83.29 OTHER OVARIAN CYSTS 11/28/2016 LETTY WILKINS TRANSLITERATOR Ot N83.201 UNSPECIFIED OVARIAN CYST, RIGHT SIDE 11/28/2016 HAO PHILLIPS MD, Ot Z12.31 ENCNTR SCREEN MAMMOGRAM FOR MALIGNANT NE 11/28/2016 PATRIA EASTON DO S Ot N92.0 EXCESSIVE AND FREQUENT MENSTRUATION WITH 12/02/2016 [place] PATRIA BARROSO S Ot N92.0 EXCESSIVE AND FREQUENT MENSTRUATION WITH 12/02/2016 PATRIA EASTON DO S Ot Z01.812 ENCOUNTER FOR PREPROCEDURAL LABORATORY E 12/02/2016 PATRIA EASTON DO S Ot Z11.2 ENCOUNTER FOR SCREENING FOR OTHER BACTER 12/13/2016 CHEYENNE ECHOLS APRN Ot D28.7 BENIGN NEOPLASM OF OTHER SPECIFIED FEMAL 12/13/2016 CHEYENNE ECHOLS APRN Ot F17.210 NICOTINE DEPENDENCE, CIGARETTES, UNCOMPL 12/13/2016 CHEYENNE ECHOLS APRN Ot K57.30 DVRTCLOS OF LG INT W/O PERFORATION OR AB 12/13/2016 CHEYENNE ECHOLS APRN Ot R10.31 RIGHT LOWER QUADRANT PAIN 12/13/2016 CHEYENNE ECHOLS APRN Ot R11.2 NAUSEA WITH VOMITING, UNSPECIFIED 12/13/2016 ECHOLS, PETER J ROTOPRINTER Ot R19.7 DIARRHEA, UNSPECIFIED 12/13/2016 CHEYENNE ECHOLS ROTOPRINTER Ot Z90.49 ACQUIRED ABSENCE OF OTHER SPECIFIED PART 12/16/2016 CAYDEN GUTIERRES MD Ot 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 12/16/2016 CAYDEN GUTIERRES MD Ot F17.210 NICOTINE DEPENDENCE, CIGARETTES, UNCOMPL 12/16/2016 CAYDEN GUTIERRES MD Ot R10.31 RIGHT LOWER QUADRANT PAIN 12/17/2016 CAYDEN GUTIERRES MD Ot 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 12/17/2016 CAYDEN GUTIERRES MD Ot F17.210 NICOTINE DEPENDENCE, CIGARETTES, UNCOMPL 12/17/2016 CAYDEN GUTIERRES MD Ot R10.31 RIGHT LOWER QUADRANT PAIN 12/18/2016 PATRIA EASTON DO Ot 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, FALLOP 12/18/2016 PATRIA EASTON DO Ot Z01.818 ENCOUNTER FOR OTHER PREPROCEDURAL EXAMIN 12/18/2016 PATRIA EASTON DO Ot Z11.2 ENCOUNTER FOR SCREENING FOR OTHER BACTER 12/19/2016 PATRIA EASTON DO Ot 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 12/23/2016 PATIRA EASTON DO Ot 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 Procedures Code Description [place] [address] INDIV PSYTX 45/50 MIN 06/18/2012 92547 INDIV PSYTX 45/50 MIN 07/02/2012 15770 INDIV PSYTX 45/50 MIN 07/17/2012 50155 INDIV PSYTX 45/50 MIN 08/06/2012 35982 INDIV PSYTX 45/50 MIN 08/20/2012 73330 PSYTX PT&/FAMILY 45 MINUTES 09/23/2012 03391 PSYTX PT&/FAMILY 45 MINUTES 10/27/2012 46976 PSYTX PT&/FAMILY 45 MINUTES 11/12/2012 84336 PSYTX PT&/FAMILY 45 MINUTES 11/24/2012 24160 PSYTX PT&/FAMILY 45 MINUTES 12/09/2012 05719 PSYTX PT&/FAMILY 45 MINUTES 12/24/2012 86993 PSYTX PT&/FAMILY 45 MINUTES 01/13/2013 47611 PSYTX PT&/FAMILY 45 MINUTES 02/03/2013 35542 PSYTX PT&/FAMILY 45 MINUTES 02/12/2013 60791 ROUTINE VENIPUNCTURE 04/06/2013 80206 CBC 04/06/2013 31956 LIPID PANEL 04/06 24397 CMP 04/06/2013 [id number] GFR CALC (RESULT ONLY) 04/06/2013 36908 MAMMOGRAM, SCREENING 04/14/2013 37476 PSYTX PT&/FAMILY 45 MINUTES 05/11/2013 37592 PSYTX PT&/FAMILY 45 MINUTES 06/17/2013 36936 PSYTX PT&/FAMILY 45 MINUTES 07/02/2013 61749 PSYTX PT&/FAMILY 45 MINUTES 08/26/2013 83382 PSYTX PT&/FAMILY 45 MINUTES 10/08/2013 83594 PSYTX PT&/FAMILY 45 MINUTES 10/21/2013 64372 PSYTX PT&/FAMILY 45 MINUTES 12/17/2013 02896 PSYTX PT&/FAMILY 45 MINUTES 01/18/2014 04084 PSYTX PT&/FAMILY 45 MINUTES 02/15/2014 16686 PSYTX PT&/FAMILY 45 MINUTES 03/17/2014 73292 ROUTINE VENIPUNCTURE 05/23/2014 06783 CMP 05/23/2014 62138 LIPID PANEL 05/23 [id number] GFR CALC (RESULT ONLY) 05/23/2014 14298 CBC 05/23/2014 86898 PSYTX PT&/FAMILY 45 MINUTES 05/24/2014 97390 PSYTX PT&/FAMILY 45 MINUTES 06/14/2014 11564 PSYTX PT&/FAMILY 45 MINUTES 07/15/2014 Obstetric Fenech, Patria 07/28/[address] ABDOMEN AND PELVIS W/CONTRAST 07/29/2014 11647 CBC 07/29/2014 80498 US PELVIC COMPL (REFLEX CPT- 00169) 08/08/2014 49206 PSYTX PT&/FAMILY 45 MINUTES 08/12/2014 85991 ROUTINE VENIPUNCTURE 10/18/2014 92871 A1C (IN-HOUSE) 09849 CMP 10/18/2014 84135 LIPID PANEL 10/18 [id number] GFR CALC (RESULT ONLY) 10/18/2014 37487 XRAY SHOULDER RIGHT COMP 2 VIEWS 11/29/2014 [facility] 12/08/2014 83108 PSYTX PT&/FAMILY 45 MINUTES 12/08/2014 Results Test Result Range Complete blood count (CBC) with automated white blood cell (WBC) differential - 11/26/16 09:25 Blood leukocytes automated count (number/volume) 12.2 10*3/ uL 4.3-11.0 Blood erythrocytes automated count (number/volume) 4.58 10*6 /uL 4.35-5.85 Venous blood hemoglobin measurement (mass/volume) 14.2 g/dL 11.5-16.0 Blood hematocrit (volume fraction) 42 % 35-52 Automated erythrocyte mean corpuscular volume 92 [foz_us] 80-99 Automated erythrocyte mean corpuscular hemoglobin (mass per erythrocyte) 31 pg 25-34 Automated erythrocyte mean corpuscular hemoglobin concentration measurement ( mass/volume) 34 g/dL 32-36 Automated erythrocyte distribution width ratio 12.6 % 10.0-14.5 Automated blood platelet count (count/volume) 269 10*3/uL 130-400 Automated blood platelet mean volume measurement 10.4 [foz_ us] 7.4-10.4 Automated blood neutrophils/100 leukocytes 64 % 42-75 Automated blood lymphocytes/100 leukocytes 28 % 12-44 Blood monocytes/100 leukocytes 6 % 0-12 Automated blood eosinophils/100 leukocytes 2 % 0-10 Automated blood basophils/100 leukocytes 0 % 0-10 Blood neutrophils automated count (number/volume) 7.8 10*3 1.8-7.8 Blood lymphocytes automated count (number/volume) 3.5 10*3 1.0-4.0 Blood monocytes automated count (number/volume) 0.7 10*3 0.0-1.0 Automated eosinophil count 0.2 10*3/uL 0.0-0.3 Automated blood basophil count (count/volume) 0.1 10*3/uL 0.0-0.1 Blood type T Indirect antibody screen panel - 11/26/16 09:25 ABO+Rh group AP NRG Blood group antibody screen NEGATIVE NRG Methicillin resistant Staphylococcus aureus (MRSA) screening culture - 09:25 Methicillin resistant Staphylococcus aureus (MRSA) screening culture NEG NRG Urine beta human chorionic gonadotropin (hCG) measurement - 11/28/16 07:10 Urine beta human chorionic gonadotropin (hCG) measurement NEGATIVE NEGATIVE Blood type T Indirect antibody screen panel - 11/28/16 07:12 ABO+Rh group AP NRG Transfusion band number [id number] NRG Blood group antibody screen NEGATIVE NRG Complete blood count (CBC) with automated white blood cell (WBC) differential - 12/13/16 13:32 Blood leukocytes automated count (number/volume) 10.8 10*3/ uL 4.3-11.0 Blood erythrocytes automated count (number/volume) 4.69 10*6 /uL 4.35-5.85 Venous blood hemoglobin measurement (mass/volume) 14.3 g/dL 11.5-16.0 Blood hematocrit (volume fraction) 44 % 35-52 Automated erythrocyte mean corpuscular volume 93 [foz_us] 80-99 Automated erythrocyte mean corpuscular hemoglobin (mass per erythrocyte) 31 pg 25-34 Automated erythrocyte mean corpuscular hemoglobin concentration measurement ( mass/volume) 33 g/dL 32-36 Automated erythrocyte distribution width ratio 12.9 % 10.0-14.5 Automated blood platelet count (count/volume) 290 10*3/uL 130-400 Automated blood platelet mean volume measurement 10.4 [foz_ us] 7.4-10.4 Automated blood neutrophils/100 leukocytes 61 % 42-75 Automated blood lymphocytes/100 leukocytes 31 % 12-44 Blood monocytes/100 leukocytes 6 % 0-12 Automated blood eosinophils/100 leukocytes 1 % 0-10 Automated blood basophils/100 leukocytes 1 % 0-10 Blood neutrophils automated count (number/volume) 6.6 10*3 1.8-7.8 Blood lymphocytes automated count (number/volume) 3.4 10*3 1.0-4.0 Blood monocytes automated count (number/volume) 0.7 10*3 0.0-1.0 Automated eosinophil count 0.2 10*3/uL 0.0-0.3 Automated blood basophil count (count/volume) 0.1 10*3/uL 0.0-0.1 Complete urinalysis with reflex to culture - 12/13/16 13:32 Urine color determination YELLOW NRG Urine clarity determination SLIGHTLY CLOUDY NRG Urine pH measurement by test strip 6 5- 9 Specific gravity of urine by test strip 1.015 1.016-1.022 Urine protein assay by test strip, semi-quantitative NEGATIVE NEGATIVE Urine glucose detection by automated test strip NEGATIVE NEGATIVE Erythrocytes detection in urine sediment by light microscopy NEGATIVE NEGATIVE Urine ketones detection by automated test strip NEGATIVE NEGATIVE Urine nitrite detection by test strip NEGATIVE NEGATIVE Urine total bilirubin detection by test strip NEGATIVE NEGATIVE Urine urobilinogen measurement by automated test strip (mass/volume) NORMAL NORMAL Urine leukocyte esterase detection by dipstick 1+ NEGATIVE Automated urine sediment erythrocyte count by microscopy (number/high power field) NONE NRG Automated urine sediment leukocyte count by microscopy (number/high power field ) [HPF] NRG Bacteria detection in urine sediment by light microscopy TRACE NRG Squamous epithelial cells detection in urine sediment by light microscopy >50 NRG Crystals detection in urine sediment by light microscopy NONE NRG Casts detection in urine sediment by light microscopy NONE NRG Mucus detection in urine sediment by light microscopy NEGATIVE NRG Complete urinalysis with reflex to culture NO NRG Comprehensive metabolic panel - 12/13/16 13:32 Serum or plasma sodium measurement (moles/volume) 141 mmol/ L 135-145 Serum or plasma potassium measurement (moles/volume) 4.5 mmol/L 3.6-5.0 Serum or plasma chloride measurement (moles/volume) 106 mmol /L 98-107 Carbon dioxide 24 mmol/L 21-32 Serum or plasma anion gap determination (moles/volume) 11 mmol/L 5-14 Serum or plasma urea nitrogen measurement (mass/volume) 9 mg /dL 7-18 Serum or plasma creatinine measurement (mass/volume) 0.79 mg /dL 0.60-1.30 Serum or plasma urea nitrogen/creatinine mass ratio 11 NRG Serum or plasma creatinine measurement with calculation of estimated glomerular filtration rate > NRG Serum or plasma glucose measurement (mass/volume) 100 mg/dL 70-105 Serum or plasma calcium measurement (mass/volume) 9.1 mg/dL 8.5-10.1 Serum or plasma total bilirubin measurement (mass/volume) 0.3 mg/dL 0.1-1.0 Serum or plasma alkaline phosphatase measurement (enzymatic activity/volume) 91 U/L 40-136 Serum or plasma aspartate aminotransferase measurement (enzymatic activity/ volume) 15 U/L 5-34 Serum or plasma alanine aminotransferase measurement (enzymatic activity/volume ) 15 U/L 0-55 Serum or plasma protein measurement (mass/volume) 7.4 g/dL 6.4-8.2 Serum or plasma albumin measurement (mass/volume) 4.3 g/dL 3.2-4.5 Complete blood count (CBC) with automated white blood cell (WBC) differential - 12/16/16 18:35 Blood leukocytes automated count (number/volume) 13.2 10*3/ uL 4.3-11.0 Blood erythrocytes automated count (number/volume) 4.14 10*6 /uL 4.35-5.85 Venous blood hemoglobin measurement (mass/volume) 12.8 g/dL 11.5-16.0 Blood hematocrit (volume fraction) 38 % 35-52 Automated erythrocyte mean corpuscular volume 93 [foz_us] 80-99 Automated erythrocyte mean corpuscular hemoglobin (mass per erythrocyte) 31 pg 25-34 Automated erythrocyte mean corpuscular hemoglobin concentration measurement ( mass/volume) 33 g/dL 32-36 Automated erythrocyte distribution width ratio 12.5 % 10.0-14.5 Automated blood platelet count (count/volume) 260 10*3/uL 130-400 Automated blood platelet mean volume measurement 10.3 [foz_ us] 7.4-10.4 Automated blood neutrophils/100 leukocytes 58 % 42-75 Automated blood lymphocytes/100 leukocytes 34 % 12-44 Blood monocytes/100 leukocytes 6 % 0-12 Automated blood eosinophils/100 leukocytes 1 % 0-10 Automated blood basophils/100 leukocytes 0 % 0-10 Blood neutrophils automated count (number/volume) 7.6 10*3 1.8-7.8 Blood lymphocytes automated count (number/volume) 4.5 10*3 1.0-4.0 Blood monocytes automated count (number/volume) 0.8 10*3 0.0-1.0 Automated eosinophil count 0.2 10*3/uL 0.0-0.3 Automated blood basophil count (count/volume) 0.1 10*3/uL 0.0-0.1 Comprehensive metabolic panel - 12/16/16 18:35 Serum or plasma sodium measurement (moles/volume) 141 mmol/ L 135-145 Serum or plasma potassium measurement (moles/volume) 3.6 mmol/L 3.6-5.0 Serum or plasma chloride measurement (moles/volume) 106 mmol /L 98-107 Carbon dioxide 27 mmol/L 21-32 Serum or plasma anion gap determination (moles/volume) 8 mmol/L 5-14 Serum or plasma urea nitrogen measurement (mass/volume) 9 mg /dL 7-18 Serum or plasma creatinine measurement (mass/volume) 0.79 mg /dL 0.60-1.30 Serum or plasma urea nitrogen/creatinine mass ratio 11 NRG Serum or plasma creatinine measurement with calculation of estimated glomerular filtration rate > NRG Serum or plasma glucose measurement (mass/volume) 104 mg/dL 70-105 Serum or plasma calcium measurement (mass/volume) 8.9 mg/dL 8.5-10.1 Serum or plasma total bilirubin measurement (mass/volume) 0.2 mg/dL 0.1-1.0 Serum or plasma alkaline phosphatase measurement (enzymatic activity/volume) 75 U/L 40-136 Serum or plasma aspartate aminotransferase measurement (enzymatic activity/ volume) 9 U/L 5-34 Serum or plasma alanine aminotransferase measurement (enzymatic activity/volume ) 10 U/L 0-55 Serum or plasma protein measurement (mass/volume) 6.4 g/dL 6.4-8.2 Serum or plasma albumin measurement (mass/volume) 3.7 g/dL 3.2-4.5 Complete urinalysis with reflex to culture - 12/16/16 19:52 Urine color determination YELLOW NRG Urine clarity determination SLIGHTLY CLOUDY NRG Urine pH measurement by test strip 7 5- 9 Specific gravity of urine by test strip 1.015 1.016-1.022 Urine protein assay by test strip, semi-quantitative NEGATIVE NEGATIVE Urine glucose detection by automated test strip NEGATIVE NEGATIVE Erythrocytes detection in urine sediment by light microscopy NEGATIVE NEGATIVE Urine ketones detection by automated test strip NEGATIVE NEGATIVE Urine nitrite detection by test strip NEGATIVE NEGATIVE Urine total bilirubin detection by test strip NEGATIVE NEGATIVE Urine urobilinogen measurement by automated test strip (mass/volume) NORMAL NORMAL Urine leukocyte esterase detection by dipstick 1+ NEGATIVE Automated urine sediment erythrocyte count by microscopy (number/high power field) NONE NRG Automated urine sediment leukocyte count by microscopy (number/high power field ) [HPF] NRG Bacteria detection in urine sediment by light microscopy NONE NRG Squamous epithelial cells detection in urine sediment by light microscopy 0-2 NRG Crystals detection in urine sediment by light microscopy NONE NRG Casts detection in urine sediment by light microscopy NONE NRG Mucus detection in urine sediment by light microscopy NEGATIVE NRG Complete urinalysis with reflex to culture NO NRG Methicillin resistant Staphylococcus aureus (MRSA) screening culture - 11:50 Methicillin resistant Staphylococcus aureus (MRSA) screening culture NEG NRG Blood type T Indirect antibody screen panel - 12/19/16 10:47 ABO+Rh group AP NRG Transfusion band number [id number] NRG Blood group antibody screen NEGATIVE NRG Urine beta human chorionic gonadotropin (hCG) measurement - 12/19/16 11:25 Urine beta human chorionic gonadotropin (hCG) measurement NEGATIVE NEGATIVE Encounters ACCT No. Visit Date/Time Discharge Status Pt. Type Provider Facility Loc./Unit Complaint [id number] 12/08/2014 12:52:00 12/08/2014 23: 59:59 CLS Outpatient MAYUR LSCSIVAKVNG R [id number] 11/08/2014 12:54:00 11/08/2014 23: 59:59 CLS Outpatient MAYUR LSCSIVAKVNG R [id number] 08/12/2014 13:04:00 08/12/2014 23: 59:59 CLS Outpatient MAYUR LSCS KV[facility] Rangel [id number] 07/28/2014 17:15:00 07/28/2014 23: 59:59 CLS Outpatient LETTY WILKINS APRN [id number] 07/15/2014 14:12:00 07/15/2014 23: 59:59 CLS Outpatient MAYUR LSCS [facility] Rangel [id number] 06/21/2014 13:21:00 06/21/2014 23: 59:59 CLS Outpatient ROBERT PIÑA APRN [id number] 06/14/2014 12:59:00 06/14/2014 23: 59:59 CLS Outpatient MAYUR LSHALIE K[facility] Rangel [id number] 05/24/2014 13:02:00 05/24/2014 23: 59:59 CLS Outpatient MAYUR LSCS [facility] Rangel [id number] 05/23/2014 11:23:00 05/23/2014 23: 59:59 CLS Outpatient LETTY WILKINS APRN [id number] 03/22/2014 13:28:00 03/22/2014 23: 59:59 CLS Outpatient ROBERT PIÑA APRN [id number] 03/22/2014 13:28:00 03/22/2014 23: 59:59 CLS Outpatient ROBERT PIÑA APRN [id number] 03/17/2014 12:58:00 03/17/2014 23: 59:59 CLS Outpatient MAYUR LSCS [facility] Rangel [id number] 02/15/2014 13:03:00 02/15/2014 23: 59:59 CLS Outpatient MAYUR LSCS, K[facility] Rangel [id number] 01/18/2014 13:04:00 01/18/2014 23: 59:59 CLS Outpatient MAYUR LSCS, KVNG Rangel [id number] 01/06/2014 12:49:00 01/06/2014 23: 59:59 CLS Outpatient NATHALIE TORO MD [id number] 12/17/2013 12:57:00 12/17/2013 23: 59:59 CLS Outpatient MAYUR LSCS, KVNG Rangel [id number] 11/25/2013 15:49:00 11/25/2013 23: 59:59 CLS Outpatient NATHALIE TORO MD [id number] 11/04/2013 10:18:00 11/04/2013 23: 59:59 CLS Outpatient FRANKY DAY LETTY S [id number] 10/21/2013 12:50:00 10/21/2013 23: 59:59 CLS Outpatient MAYUR LSCS, KVNG Rangel [id number] 10/08/2013 12:54:00 10/08/2013 23: 59:59 CLS Outpatient MAYUR LSCS, KVNG Rangel [id number] 08/24/2013 12:56:00 08/24/2013 23: 59:59 CLS Outpatient MAYUR LSCS, KVNG Rangel [id number] 08/13/2013 11:02:00 08/13/2013 23: 59:59 CLS Outpatient NATHALIE TORO MD [id number] 08/13/2013 11:02:00 08/13/2013 23: 59:59 CLS Outpatient EDUARDO COBB JR [id number] 07/02/2013 13:07:00 07/02/2013 23: 59:59 CLS Outpatient MAYUR LSCS, KVNG Rangel [id number] 06/17/2013 13:16:00 06/17/2013 23: 59:59 CLS Outpatient MAYUR LSCS, KVNG Rangel [id number] 05/11/2013 13:05:00 05/11/2013 23: 59:59 CLS Outpatient MAYUR LSCS, KVNG Rangel [id number] 11/24/2012 15:00:00 11/24/2012 23: 59:59 CLS Outpatient [id number] 11/10/2012 15:02:00 11/10/2012 23: 59:59 CLS Outpatient [id number] 10/27/2012 14:59:00 10/27/2012 23: 59:59 CLS Outpatient KVNG KNIGHT Claire [id number] 10/08/2012 12:38:00 10/08/2012 23: 59:59 CLS Outpatient [id number] 09/17/2012 12:56:00 09/17/2012 23: 59:59 CLS Outpatient [id number] 08/20/2012 13:00:00 08/20/2012 23: 59:59 CLS Outpatient KVNG KNIGHT Claire [id number] 08/05/2012 11:00:00 08/05/2012 23: 59:59 CLS Outpatient WILLARD GOEL DDS [id number] 06/18/2012 09:06:00 06/18/2012 23:59 :59 CLS Outpatient WILLARD GOEL DDS [id number] 04/06/2013 13:44:00 Document Registration [id number] 04/06/2013 13:44:00 Document Registration [id number] 02/11/2013 12:55:00 Document Registration [id number] 01/28/2013 13:06:00 Document Registration [id number] 01/07/2013 13:05:00 Document Registration [id number] 12/24/2012 13:01:00 Document Registration [id number] 12/09/2012 12:57:00 Document Registration
--- OUTSIDE RECORDS SUMMARY | 2016-12-29 20:49 | XMS REPORT ---
Author Author LETTY WILKINS [facility] eClinicalWorks Address Unknown Phone Unavailable Care Team Providers Care Soft Work Cigar Machine Operator Name Role Phone LETTY WILKINS Unavailable Allergies, Adverse Reactions, Alerts Substance Reaction Event Type Sulfamethoxazole-Trimethoprim Info Not Available Drug Allergy Erythromycin rash Drug Allergy Hydrocodone dizziness Non Drug Allergy Problems Problem Type Condition Code Onset Dates Condition Status Assessment Cervicalgia M54.2 Active Problem Depressive disorder, not elsewhere classified [...] Instructions Start Date End Date Status Dosage Hydrochlorothiazide NDC [address]-34 12.5 MG TAKE ONE TO TWO CAPSULES BY MOUTH ONCE DAILY NEEDED FOR SWELLING Flonase NDC 0 50 mcg/actuation Jun 21, 2014 2 Nasal [place] by Nasal route 1 time per day propranolol NDC 0 20 mg May 04, 2013 1 tablet by Oral route 1 time per day PRN TACHYCARDIA Clorazepate Dipotassium [facility] [address]-16 7.5 MG 4 times a day TAKE ONE TABLET BY MOUTH TWICE DAILY. ALSO MAY TAKE ONE OR TWO TABLETS IN THE AFTERNOON NEEDED FOR ANXIETY Dwsorihghc-LGOY-Pepsroqv [facility] [address]-88 50-325-40 MG Orally and then 1 capsule every 4 hrs PRN not to exceed 6 capsules in 24 hrs March 04, 2016 2 capsules at onset of headache InnoPran XL [facility] [address]-54 120 MG Orally Once a day December 22, 2015 1 capsule at bedtime Baclofen [facility] [address]-75 20 mg Orally every 8 hrs May 16, 2016 Jun 15, 2016 1 tablet with food or milk Hyoscyamine Sulfate [facility] 25539065708 0.125 MG TAKE ONE TABLET BY MOUTH FOUR TIMES DAILY NEEDED InnoPran XL [facility] [address]-77 80 MG Orally Once a day 1 capsule at bedtime Zofran [facility] [address]-59 4 MG Orally every 8 hours, PRN May 06, 2016 1 tablets Procedures Procedure Coding System Code Date Office Visit, Est Pt., Level 3 CPT-4 24675 May 16, 2016 INJECT TRIGGER POINT, 1 OR 2 CPT-4 38192 May 16, 2016 Vital Signs Date/Time: May 16, 2016 Cardiac Monitoring Heart Rate 66 bpm Weight 154.7 lbs Height 66 in BMI 24.97 Index Blood Pressure Diastolic 80 mmHg Blood Pressure Systolic 122 mmHg Results Name Result Date Reference Range Unit Abnormality Flag TRIGGER POINT INJ/1-2 MUS Summary Purpose eClinicalWorks Submission
--- OUTSIDE RECORDS SUMMARY | 2016-12-29 20:49 | XMS REPORT ---
Author Author ROBERT PIÑA [facility] eClinicalWorks Address Unknown Phone Unavailable Care Team Providers Care Licensed Home Inspector Name Role Phone ROBERT PIÑA CP Unavailable Allergies, Adverse Reactions, Alerts Substance [...] Instructions Start Date End Date Status Dosage Amlodipine Besylate [facility] [address]-62 10 MG Orally Once a day 1 tablet Acetaminophen-Codeine #3 [facility] [address]-05 300-30 MG Orally every 6 hrs PRN pain 1-2 tablet as needed Hydrochlorothiazide [facility] 77361488079 12.5 MG TAKE ONE TO TWO CAPSULES BY MOUTH ONCE DAILY NEEDED FOR SWELLING Abilify [facility] [address]-09 2 MG Orally Once a day Sep 20, 2014 1 tablet Flonase [facility] [address]-17 50 mcg/actuation Jun 21, 2014 2 Nasal [place] by Nasal route 1 time per day propranolol NDC 0 20 mg May 04, 2013 1 tablet by Oral route 1 time per day PRN TACHYCARDIA Clorazepate Dipotassium [facility] [address]-29 7.5 MG TAKE ONE TABLET BY MOUTH TWICE DAILY. ALSO MAY TAKE ONE OR TWO TABLETS IN THE AFTERNOON NEEDED FOR ANXIETY InnoPran XL [facility] [address]-37 120 MG TAKE ONE CAPSULE BY MOUTH AT BEDTIME (MUST HAVE APPOINTMENT FOR FURTHER REFILLS!!!!) Promethazine HCl [facility] [address]-54 25 MG Orally every 6 hrs PRN nausea 1 tablet Hyoscyamine Sulfate [facility] [address]-56 0.125 mg Jul 28, 2014 1 tablet by Oral route 4 times per day PRN Procedures Procedure Coding System Code Date Office Visit, Est Pt., Level 3 CPT-4 75694 Jun 30, 2015 Vital Signs Date/Time: Jun 30, 2015 Cardiac Monitoring Heart Rate 76 bpm Weight 181.8 lbs Height 66 in BMI 29.34 Index Blood Pressure Diastolic 75 mmHg Blood Pressure Systolic 120 mmHg Results No Known Results Summary Purpose eClinicalWorks Submission
--- OUTSIDE RECORDS SUMMARY | 2016-12-29 20:49 | XMS REPORT ---
Author Author PHILIPPE TAMEZ [facility] eClinicalWorks Address Unknown Phone Unavailable Care Team Providers Care Photo Mask Pattern Generator Name Role Phone PHILIPPE TAMEZ CP Unavailable Allergies, Adverse Reactions, Alerts Substance Reaction Event Type Sulfamethoxazole-Trimethoprim Info Not Available Drug Allergy Erythromycin rash Drug Allergy Hydrocodone dizziness Non Drug Allergy Problems Problem Type Condition Code Onset Dates Condition Status Assessment Visit for dental examination Z01.20 Active Problem Depressive disorder, not [...] Date End Date Status Dosage InnoPran XL [facility] [address]-92 80 MG Orally Once a day 1 capsule at bedtime InnoPran XL [facility] [address]-52 120 MG Orally Once a day December 22, 2015 1 capsule at bedtime Clorazepate Dipotassium [facility] [address]-22 7.5 MG 4 times a day TAKE ONE TABLET BY MOUTH TWICE DAILY. ALSO MAY TAKE ONE OR TWO TABLETS IN THE AFTERNOON NEEDED FOR ANXIETY Hydrochlorothiazide [facility] [address]-58 12.5 MG TAKE ONE TO TWO CAPSULES BY MOUTH ONCE DAILY NEEDED FOR SWELLING Flonase [facility] [address]-61 50 mcg/actuation Jun 21, 2014 2 Nasal [place] by Nasal route 1 time per day propranolol NDC 0 20 mg May 04, 2013 1 tablet by Oral route 1 time per day PRN TACHYCARDIA Scbbqliwsn-DNGY-Vbxxnmws [facility] [address]-78 50-325-40 MG Orally and then 1 capsule every 4 hrs PRN not to exceed 6 capsules in 24 hrs March 04, 2016 2 capsules at onset of headache Hyoscyamine Sulfate [facility] 29034201300 0.125 MG TAKE ONE TABLET BY MOUTH FOUR TIMES DAILY NEEDED Procedures Procedure Coding System Code Date BITEWING - SINGLE FILM CPT-4 D0270 March 07, 2016 BITEWINGS - TWO FILMS CPT-4 D0272 March 07, 2016 PERIODIC ORAL EXAMINATION CPT-4 D0120 March 07, 2016 TOPICAL FLUORIDE VARNISH CPT-4 D1206 March 07, 2016 Periodontal maint procedures CPT-4 D4910 March 07, 2016 Vital Signs Date/Time: March 07, 2016 Blood Pressure Diastolic 77 mmHg Blood Pressure Systolic 109 mmHg Cardiac Monitoring Heart Rate 60 bpm Results No Known Results Summary Purpose eClinicalWorks Submission
--- OUTSIDE RECORDS SUMMARY | 2016-12-29 20:49 | XMS REPORT ---
Author Author LETTY WILKINS [facility] eClinicalWorks Address Unknown Phone Unavailable Care Team Providers Care Gas Station Clerk Name Role Phone LETTY WILKINS CP Unavailable [...] Date End Date Status Dosage InnoPran XL [facility] [address]-04 120 MG Orally Once a day December 22, 2015 1 capsule at bedtime Results No Known Results Summary Purpose eClinicalWorks Submission
--- OUTSIDE RECORDS SUMMARY | 2016-12-29 20:49 | XMS REPORT ---
Author Author KVNG MERCHANT eClinicalWorks Address Unknown Phone Unavailable Care Team Providers Care Balloon Sander Name Role Phone KVNG MERCHANT CP Unavailable [...] Active Problem Esophageal reflux 530.81 Active Assessment Depressive disorder, not elsewhere classified 311 Active Assessment Generalized anxiety disorder 300.02 Active Problem Unspecified vaginitis and vulvovaginitis 616.10 [...] patient &/family, 45 minutes, established patient CPT-4 86145 May 08, 2015 Results No Known Results Summary Purpose [employer] Software[employer] Submission
--- OUTSIDE RECORDS SUMMARY | 2016-12-29 20:49 | XMS REPORT ---
Author Author LETTY WILKINS [facility] eClinicalWorks Address Unknown Phone Unavailable Care Team Providers Care Windrower Operator Name Role Phone LETTY WIKLINS Unavailable Allergies, Adverse Reactions, Alerts Substance Reaction Event Type Sulfamethoxazole-Trimethoprim Info Not Available Drug Allergy Erythromycin rash Drug Allergy Hydrocodone dizziness Non Drug Allergy Problems Problem Type Condition Code Onset Dates Condition Status Assessment Essential hypertension I10 Active Assessment Migraine without status migrainosus, not intractable, unspecified migraine type G43.909 Active Assessment 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 Problem Depressive disorder, not elsewhere classified [...] route 1 time per day PRN TACHYCARDIA Flonase [facility] [address]-22 50 mcg/actuation Jun 21, 2014 2 Nasal [place] by Nasal route 1 time per day Xuqyffbtbe-CKAF-Tlkymxut [facility] [address]-44 50-325-40 MG Orally and then 1 capsule every 4 hrs PRN not to exceed 6 capsules in 24 hrs March 04, 2016 2 capsules at onset of headache Hyoscyamine Sulfate [facility] 99862282486 0.125 MG TAKE ONE TABLET BY MOUTH FOUR TIMES DAILY NEEDED Hydrochlorothiazide [facility] [address]-07 12.5 MG TAKE ONE TO TWO CAPSULES BY MOUTH ONCE DAILY NEEDED FOR SWELLING InnoPran XL [facility] [address]-85 120 MG Orally Once a day December 22, 2015 1 capsule at bedtime InnoPran XL [facility] [address]-68 80 MG Orally Once a day 1 capsule at bedtime Clorazepate Dipotassium [facility] [address]-47 7.5 MG 4 times a day TAKE ONE TABLET BY MOUTH TWICE DAILY. ALSO MAY TAKE ONE OR TWO TABLETS IN THE AFTERNOON NEEDED FOR ANXIETY Procedures Procedure Coding System Code Date Office Visit, Est Pt., Level 3 CPT-4 14819 March 04, 2016 Vital Signs Date/Time: March 04, 2016 Cardiac Monitoring Heart Rate 77 bpm Weight 159.4 lbs Height 66 in BMI 25.73 Index Blood Pressure Diastolic 83 mmHg Blood Pressure Systolic 142 mmHg Results No Known Results Summary Purpose eClinicalWorks Submission
--- OUTSIDE RECORDS SUMMARY | 2016-12-29 20:49 | XMS REPORT ---
Author Author TAMELA RAZO [facility] eClinicalWorks Address Unknown Phone Unavailable Care Team Providers Care Professor Of Poultry Science Name Role Phone TAMELA RAZO CP Unavailable Allergies No Known Allergies Problems [...] Active Problem Unspecified otalgia 388.70 Active Problem Depressive disorder, not elsewhere classified F32.9 Active Problem Esophageal reflux 530.81 Active Problem Unspecified gastritis and gastroduodenitis without mention of hemorrhage 535.50 Active Problem Generalized anxiety disorder F41.1 Active Problem Dysphagia, unspecified 787.20 Active Problem Diverticulosis of small intestine (without mention of hemorrhage) 562.00 Active Problem Unspecified vaginitis and vulvovaginitis 616.10 Active Medications No Known Medications Results No Known Results Summary Purpose eClinicalWorks Submission
--- OUTSIDE RECORDS SUMMARY | 2016-12-29 20:49 | XMS REPORT ---
Author Author KVNG MERCHANT eClinicalWorks Address Unknown Phone Unavailable Care Team Providers Care Pumpman Name Role Phone KVNG MERCHANT CP Unavailable [...] patient &/family, 45 minutes, established patient CPT-4 51487 Aug 31, 2015 Results No Known Results Summary Purpose eClinicalWorks Submission
--- OUTSIDE RECORDS SUMMARY | 2016-12-29 20:49 | XMS REPORT ---
Author Author NATHALIE TORO [facility] eClinicalWorks Address Unknown Phone Unavailable Care Team Providers Care Legal Paraprofessional Name Role Phone NATHALIE TORO CP Unavailable Allergies No Known Allergies Problems [...] Instructions Start Date End Date Status Dosage Clorazepate Dipotassium [facility] [address]-[address] Toro to sign TAKE ONE TABLET BY MOUTH TWICE DAILY. ALSO MAY TAKE ONE OR TWO TABLETS IN THE AFTERNOON NEEDED FOR ANXIETY Results No Known Results Summary Purpose eClinicalWorks Submission
--- OUTSIDE RECORDS SUMMARY | 2016-12-29 20:50 | XMS REPORT ---
Author Author LETTY WILKINS [facility] eClinicalWorks Address Unknown Phone Unavailable Care Team Providers Care Dairy Hand Name Role Phone LETTY WILKINS CP Unavailable Allergies No Known Allergies Problems Problem Type Condition Code Onset Dates Condition Status Assessment Encounter for immunization Z23 Active Problem Depressive disorder, not elsewhere classified [...] Medications Procedures Procedure Coding System Code Date SINGLE IMMUNIZATION ADMIN CPT-4 77278 Jun 21, 2016 FLUARIX QUAD P-FREE 3 AND UP .50 2015 CPT-4 42581 Jun 21, 2016 Results No Known Results Immunizations Vaccine Administration Date FLUARIX QUAD P-FREE 3 AND UP .50 2015Jun 21, 2016 Summary Purpose eClinicalWorks Submission
== END 2016-11-28 11:30 | disposition home or self-care (01) ==
LOC: SDC 06:54
PROVIDERS: ATTEND Obstetrics & Gynecology
DX: N92.0 Excessive and frequent menstruation with regular cycle (principal)
CPT/HCPCS: 84703; 88305; 94664

== ENCOUNTER 2016-12-13 13:08 | Emergency (ER) | payer MEDICAID ==
[~2016-12-13] VITALS: Ht 170.2 cm; Wt 73.2 kg
[~2016-12-13 13:08] MED LIST changes: +IBUP-1773 PO
--- NOTE | 2016-12-13 13:26 | ED Abdominal Pain ---
General Chief Complaint: Abdominal/GI Problems Stated Complaint: RIGHT SIDE PAIN Source of Information: Patient Exam Limitations: No Limitations History of Present Illness Time Seen By Provider: 13:24 Initial Comments To ER with reports of right-sided abdominal pain for 5 days. This began with nausea vomiting and diarrhea and progressed to pain a few days later. She does not have a gallbladder. Pain was initially the right flank but now seems to be more of the right lower abdomen. Pain is constant and worsened by movement, alleviated by rest. She reports sensation of incomplete bladder emptying and persistent frequent bowel movements that are not liquid but are loose. No fevers. She did have a endometrial ablation done on November [address] EASTON. Timing/Duration: 1 Week Severity/Quality: Moderate Location: RLQ Radiation: No Radiation Activities at Onset: None Allergies and Home Medications Allergies Coded Allergies: hydrocodone (Verified Allergy, Mild, VOMITING, 12/13/16) Sulfa (Sulfonamide Antibiotics) (Verified Allergy, Unknown, ANAPHYLAXIS, ) erythromycin base (Verified Allergy, Unknown, 12/13/16) Home Medications Clorazepate Dipotassium 7.5 Mg Tablet, 7.5 MG PO TID, (Reported) Fluticasone Propionate 9.9 Ml Happy Jack.susp, 1 SPR NS DAILY, (Reported) Propranolol Hcl 120 Mg Cap.sr.24h, 200 MG PO DAILY, (Reported) Review of Systems Constitutional: see HPI EENTM: No Symptoms Reported Respiratory: No Symptoms Reported Cardiovascular: No Symptoms Reported Gastrointestinal: See HPI, Abdominal Pain, Diarrhea, Nausea Genitourinary: See HPI, Frequency, Flank Pain Musculoskeletal: no symptoms reported Skin: no symptoms reported Psychiatric/Neurological: No Symptoms Reported Endocrine: No Symptoms Reported Past Kgycyzk-Bxzgqc-Snyvlr Hx Patient Social History Alcohol Use: Denies Use Recreational Drug Use: No Smoking Status: Current Everyday Smoker Type Used: Cigarettes 2nd Hand Smoke Exposure: Yes Recent Foreign Travel: No Contact w/Someone Who Travel: No Recent Hopitalizations: Yes (ablation 11/28, ear sx 12/05) Immunizations Up To Date Tetanus Booster (TDap): More than 5yrs Date of Pneumonia Vaccine: Sep 19, 2010 Date of Influenza Vaccine: Jun 03, 2016 Seasonal Allergies Seasonal Allergies: Yes Surgeries HX Surgeries: Yes (2001 TUBAL PREGNACY,1988 LAP EXP FOR ENDOMETREOSIS, D&C, R SHOULDER SCOPE) Surgeries: Gallbladder Respiratory Hx Respiratory Disorders: No Cardiovascular Hx Cardiac Disorders: Yes (mild mitral valve prolapse) Neurological Hx Neurological Disorders: Yes (TAKES CHLORAZPAETE FOR SEIZURES-LAST SEIZURE ) Neurological Disorders: Seizure Disorder Reproductive System Hx Reproductive Disorders: Yes (AUB, MENORRHAGIA) Sexually Transmitted Disease: No HIV/AIDS: No Female Reproductive Disorders: Endometriosis, Ovarian Cyst Genitourinary Hx Genitourinary Disorders: No Gastrointestinal Hx Gastrointestinal Disorders: Yes Gastrointestinal Disorders: Gastroesophageal Reflux, Diverticulosis, Polyps, Irritable Bowel Musculoskeletal Hx Musculoskeletal Disorders: No Endocrine Hx Endocrine Disorders: No HEENT HX ENT Disorders: Yes (READING GLASSES, PARTIAL PLATE, ) Loss of Vision: Bilateral Hearing Impairment: Denies Cancer Hx Cancer: No Psychosocial Hx Psychiatric Problems: Yes (SEIZURES ARE FROM ANXIETY ) Behavioral Health Disorders: Anxiety Integumentary HX Skin/Integumentary Disorder: No Blood Transfusions Hx Blood Disorders: No Adverse Reaction to a Blood Tr: No Physical Exam Vital Signs VS - Last 72 Hours, by Label 12/13/16 13:20 Temp 97.4 Pulse 68 Resp 18 B/P (MAP) 163/98 Pulse Ox 99 Capillary Refill : General Appearance: WD/WN, no apparent distress HEENT: PERRL/EOMI, normal ENT inspection Neck: non-tender, full range of motion Respiratory: normal breath sounds, no respiratory distress, no accessory muscle use Cardiovascular: regular rate, rhythm, no murmur Gastrointestinal: normal bowel sounds, soft, tenderness Extremities: normal range of motion, non-tender Neurologic/Psychiatric: alert, normal mood/affect, oriented x 3 Skin: normal color, warm/dry Progress/Results/Core Measures Results/Orders Lab Results Laboratory Tests Test 12/13/16 13:32 Range/Units White Blood Count 10.8 4.3-11.0 10^3/uL Red Blood Count 4.69 4.35-5.85 10^6/uL Hemoglobin 14.3 11.5-16.0 G/DL Hematocrit 44 35-52 % Mean Corpuscular Volume 93 80-99 FL Mean Corpuscular Hemoglobin 31 25-34 PG Mean Corpuscular Hemoglobin Concent 33 32-36 G/DL Red Cell Distribution Width 12.9 10.0-14.5 % Platelet Count 290 130-400 10^3/uL Mean Platelet Volume 10.4 7.4-10.4 FL Neutrophils (%) (Auto) 61 42-75 % Lymphocytes (%) (Auto) 31 12-44 % Monocytes (%) (Auto) 6 0-12 % Eosinophils (%) (Auto) 1 0-10 % Basophils (%) (Auto) 1 0-10 % Neutrophils # (Auto) 6.6 1.8-7.8 X 10^3 Lymphocytes # (Auto) 3.4 1.0-4.0 X 10^3 Monocytes # (Auto) 0.7 0.0-1.0 X 10^3 Eosinophils # (Auto) 0.2 0.0-0.3 10^3/uL Basophils # (Auto) 0.1 0.0-0.1 10^3/uL Urine Color YELLOW Urine Clarity SLIGHTLY CLOUDY Urine pH 6 5-9 Urine Specific Streeter 1.015 L 1.016-1.022 Urine Protein NEGATIVE NEGATIVE Urine Glucose (UA) NEGATIVE NEGATIVE Urine Ketones NEGATIVE NEGATIVE Urine Nitrite NEGATIVE NEGATIVE Urine Bilirubin NEGATIVE NEGATIVE Urine Urobilinogen NORMAL NORMAL MG/DL Urine Leukocyte Esterase 1+ H NEGATIVE Urine RBC (Auto) NEGATIVE NEGATIVE Urine RBC NONE /HPF Urine WBC 0-2 /HPF Urine Squamous Epithelial Cells >50 H /HPF Urine Crystals NONE /LPF Urine Bacteria TRACE /HPF Urine Casts NONE /LPF Urine Mucus NEGATIVE /LPF Urine Culture Indicated NO Sodium Level 141 135-145 MMOL/L Potassium Level 4.5 3.6-5.0 MMOL/L Chloride Level 106 98-107 MMOL/L Carbon Dioxide Level 24 21-32 MMOL/L Anion Gap 11 5-14 MMOL/L Blood Urea Nitrogen 9 7-18 MG/DL Creatinine 0.79 0.60-1.30 MG/DL Estimat Glomerular Filtration Rate > 60 BUN/Creatinine Ratio 11 Glucose Level 100 70-105 MG/DL Calcium Level 9.1 8.5-10.1 MG/DL Total Bilirubin 0.3 0.1-1.0 MG/DL Aspartate Amino Transf (AST/SGOT) 15 5-34 U/L Alanine Aminotransferase (ALT/SGPT) 15 0-55 U/L Alkaline Phosphatase 91 40-136 U/L Total Protein 7.4 6.4-8.2 G/DL Albumin 4.3 3.2-4.5 G/DL My Orders Orders - CHEYENNE ECHOLS COLLECTIONS ASSISTANT Cbc With Automated Diff (12/13/16 13:16) Comprehensive Metabolic Panel (12/13/16 13:16) Ua Culture If Indicated (12/13/16 13:16) Saline Lock/Iv-Start (12/13/16 13:16) Ct Abdomen/Pelvis W (12/13/16 13:16) Ketorolac Injection (Toradol Injection) (12/13/16 13:30) Ns Iv 1000 Ml (Sodium Chloride 0.9%) (12/13/16 13:30) Iohexol Injection (Omnipaque 350 Mg/Ml 1 (12/13/16 13:30) Ns (Ivpb) (Sodium Chloride 0.9% Ivpb Bag (12/13/16 13:30) Medications Given in ED Current Medications Medications Dose Ordered Sig/Cherry Route Start Time Stop Time Status Last Admin Dose Admin Iohexol 100 ml ONCE ONCE IV 12/13/16 13:30 12/13/16 13:31 DC 12/13/16 14:20 100 ML Ketorolac Tromethamine 30 mg ONCE ONCE IVP 12/13/16 13:30 12/13/16 13:31 DC 12/13/16 13:31 30 MG Sodium Chloride 100 ml ONCE ONCE IV 12/13/16 13:30 12/13/16 13:31 DC 12/13/16 14:21 80 ML Vital Signs/I&O Vital Sign - Last 12Hours 12/13/16 13:20 Temp 97.4 Pulse 68 Resp 18 B/P (MAP) 163/98 Pulse Ox 99 Diagnostic Imaging Diagonstic Imaging: CT Comments NAME: [facility] REC#: [id number] PT STATUS: REG ER : 1965 PHYSICIAN: CHEYENNE ECHOLS APRN ADMIT DATE: 12/13/16/ER Draft Date of Exam:12/13/16 CT ABDOMEN/PELVIS W PROCEDURE: CT abdomen and pelvis with contrast. TECHNIQUE: Multiple contiguous axial images were obtained through the abdomen and pelvis after administration of intravenous contrast. INDICATION: Right-sided pain periumbilical. Vomiting for five days. Difficulty emptying the bladder. Study compared with exam performed 07/29/2014. Partially fat-containing circumscribed right adnexal mass 3.4 x 3.0 cm not substantially changed from prior and shows no evidence for torsion, remaining consistent with mature teratoma/dermoid without evidence for torsion. The uterus retroverted. The endometrium thickened. The left adnexa normal. There are diverticula at the sigmoid colon but no findings of acute diverticulitis. Appendix visualized air-containing and normal. There are no opaque kidney stones. There is no hydronephrosis. No perinephric or danny-ureteric edema. The gallbladder absent. The liver, bile ducts, spleen, adrenals, pancreas all unremarkable. The aortoiliac and mesenteric vessels nonaneurysmal. IMPRESSION: Fat-containing circumscribed right adnexal mass presumed dermoid redemonstrated without evidence for its torsion. Noninflamed diverticulosis with negative appendix and unobstructed urinary tracts. Noninflamed diverticulosis. No obstructive features, acute inflammatory process, or other substantial finding. Dictated on workstation # [id number] Dict: 12/13/16 1437 Trans: 12/13/16 1442 DELICIA [id number] Interpreted by: DEVIN HERNANDEZ Electronically signed by: Departure Impression Impression: Primary Impression: Nausea vomiting and diarrhea Additional Impression: Dermoid cyst of right ovary Departure-Patient Inst. Decision time for Depature: 14:54 Referrals: [facility] (PCP/Family) Primary Care Physician PATRIA EASTON DO Patient Instructions: Ovarian Cyst (DC) Add. Discharge Instructions: 1. Return to ER for any concerns 2. Follow-up with Dr. EASTON 3. Tylenol and Motrin for pain 4. All discharge instructions reviewed with patient and/or family. Voiced understanding. Work/School Note: Work Release Form Date Seen in the Emergency Department: Dec 13, 2016 Return to Work: Dec 14, 2016 Copy Copies To 1: PATRIA EASTON PETER J APRN Dec 13, 2016 13:26
[2016-12-13] MEDS ORDERED: KETOROLAC 30 MG/ML VIAL IVP ONE (13:30)
[2016-12-13] MEDS ORDERED: IOHEXOL 350 MG/ML 100 ML (OMNIPAQUE 350) VIAL IV ONE (13:30)
[2016-12-13] MEDS ORDERED: NS 100 ML (IVPB) BAG IV ONE (13:30)
[2016-12-13] MEDS ORDERED: NS IV 1000 ML 1,000 ML IV SCH (13:30)
[2016-12-13 13:44] LABS: BASOPHILS # (AUTO) 0.1 10^3/uL (0.0-0.1); BASOPHILS % (AUTO) 1 % (0-10); BILIRUBIN,URINE NEGATIVE (NEGATIVE); EOSINOPHILS # (AUTO) 0.2 10^3/uL (0.0-0.3); EOSINOPHILS % (AUTO) 1 % (0-10); KETONES,URINE NEGATIVE (NEGATIVE); LEUKOCYTE ESTERASE ,URINE 1+ (NEGATIVE); LYMPHOCYTES # (AUTO) 3.4 X 10^3 (1.0-4.0); LYMPHOCYTES % (AUTO) 31 % (12-44); MEAN CORPUSCULAR HEMOGLOBIN 31 PG (25-34); MEAN CORPUSCULAR HGB CONC 33 G/DL (32-36); MEAN CORPUSCULAR VOLUME 93 FL (80-99); MEAN PLATELET VOLUME 10.4 FL (7.4-10.4); MONOCYTES # (AUTO) 0.7 X 10^3 (0.0-1.0); MONOCYTES % (AUTO) 6 % (0-12); NEUTROPHILS # (AUTO) 6.6 X 10^3 (1.8-7.8); NEUTROPHILS % (AUTO) 61 % (42-75); NITRITE,URINE NEGATIVE (NEGATIVE); PH,URINE 6 (5-9); PLATELET COUNT 290 10^3/uL (130-400); PROTEIN,URINE NEGATIVE (NEGATIVE); RED BLOOD COUNT 4.69 10^6/uL (4.35-5.85); RED CELL DISTRIBUTION WIDTH 12.9 % (10.0-14.5); UROBILINOGEN,URINE NORMAL (NORMAL); WHITE BLOOD COUNT 10.8 10^3/uL (4.3-11.0)
[2016-12-13 13:52] LABS: SQUAMOUS EPITHELIAL CELL,UR >50 /HPF; WBC,URINE 0-2 /HPF
[2016-12-13 14:02] LABS: ALANINE AMINOTRANSFERASE 15 U/L (0-55); ALBUMIN 4.3 G/DL (3.2-4.5); ANION GAP 11 MMOL/L (5-14); ASPARTATE AMINO TRANSFERASE 15 U/L (5-34); BILIRUBIN,TOTAL 0.3 MG/DL (0.1-1.0); BLOOD UREA NITROGEN 9 MG/DL (7-18); BUN/CREATININE RATIO 11; CALCIUM 9.1 MG/DL (8.5-10.1); CARBON DIOXIDE 24 MMOL/L (21-32); CHLORIDE 106 MMOL/L (98-107); CREATININE SERUM 0.79 MG/DL (0.60-1.30); GFR ESTIMATED > 60; GLUCOSE 100 MG/DL (70-105); POTASSIUM 4.5 MMOL/L (3.6-5.0); SODIUM 141 MMOL/L (135-145); TOTAL PROTEIN 7.4 G/DL (6.4-8.2)
--- NOTE | 2016-12-13 14:43 | Diagnostic Imaging Report ---
PROCEDURE: CT abdomen and pelvis with contrast. TECHNIQUE: Multiple contiguous axial images were obtained through the abdomen and pelvis after administration of intravenous contrast. INDICATION: Right-sided pain periumbilical. Vomiting for five days. Difficulty emptying the bladder. Study compared with exam performed 07/29/2014. Partially fat-containing circumscribed right adnexal mass 3.4 x 3.0 cm not substantially changed from prior and shows no evidence for torsion, remaining consistent with mature teratoma/dermoid without evidence for torsion. The uterus retroverted. The endometrium thickened. The left adnexa normal. There are diverticula at the sigmoid colon but no findings of acute diverticulitis. Appendix visualized air-containing and normal. There are no opaque kidney stones. There is no hydronephrosis. No perinephric or danny-ureteric edema. The gallbladder absent. The liver, bile ducts, spleen, adrenals, pancreas all unremarkable. The aortoiliac and mesenteric vessels nonaneurysmal. IMPRESSION: Fat-containing circumscribed right adnexal mass presumed dermoid redemonstrated without evidence for its torsion. Noninflamed diverticulosis with negative appendix and unobstructed urinary tracts. Noninflamed diverticulosis. No obstructive features, acute inflammatory process, or other substantial finding. Dictated by: Dictated on workstation # [id number]
[2016-12-13 15:12] VITALS: BP 136/91
[2016-12-19] MEDS ORDERED: SCOP1PAT TOP (11:39)
[2016-12-19] MEDS ORDERED: IBUP-1773 PO (11:39)
[2016-12-19] MEDS ORDERED: OXYC-471 PO (11:39)
== END 2016-12-13 15:15 | disposition home or self-care (01) ==
LOC: EDUNIT# 13:08 → ER 13:11
DX: R11.2 Nausea with vomiting, unspecified (principal); R19.7 Diarrhea, unspecified; D28.7 Benign neoplasm of other specified female genital organs; K57.30 Diverticulosis of large intestine without perforation or abscess without bleeding; F17.210 Nicotine dependence, cigarettes, uncomplicated; Z90.49 Acquired absence of other specified parts of digestive tract
CPT/HCPCS: 36415; 74177; 80053; 81000; 84703; 85025; 96361; 96374

== ENCOUNTER 2016-12-16 17:31 | Emergency (ER) | payer MEDICAID ==
[~2016-12-16] VITALS: Ht 170.2 cm; Wt 73.2 kg
[2016-12-16] MEDS ORDERED: fentaNYL INJECTION 100 MCG/2 ML AMP IVP STA (18:24)
[2016-12-16] MEDS ORDERED: NS IV 500 ML 500 ML IV ONE (18:24)
[2016-12-16] MEDS ORDERED: KETOROLAC 30 MG/ML VIAL IVP STA (18:24)
--- NOTE | 2016-12-16 18:32 | ED GI ---
General Chief Complaint: Abdominal/GI Problems Stated Complaint: OVARIAN CYST/PAIN/NAUSEA Nursing Triage Note: patient reports being evaluated here friday and diagnosed with ovarian cyst. patient reports that the pain has increased and she called Dr. Juares about the pain and patient was told to come here and he would fix the problem. Sepsis Screen: No Definite Risk Source of Information: Patient Exam Limitations: No Limitations History of Present Illness Time Seen By Provider: 18:10 Initial Comments here with report of lower abdominal pain. Seen a few days ago for the same and found to have ovarian cyst/teratoma. She is instructed to take ibuprofen and/ or Tylenol and she states this is not helping. She states that she was worried about taking this because of concerns for constipation because it hurts every time she has a bowel movement. She has not had a bowel movement today. She describes pain with urination as well. Pain is to the right side and suprapubic. Denies fever or chills. She does have nausea without vomiting as of yet with the severe pain syndrome. she is a patient of Dr. Juares and recently had ablation. she called their office but they were unavailable at the time but did instruct her to come to the ER for further evaluation. Timing/Duration: 4-5 Days, Changing Over Time Severity/Quality: Moderate, Aching, Sharp Location: RLQ, Suprapubic Radiation: No Radiation Activities at Onset: None Modifying Factors: Worsens With Defecating, Improves With Lying down, Worsens With Movement, Improves With Resting, Worsens With Urinating Associated Symptoms: No Back Pain, No Fever/Chills, Nausea/Vomiting, No Shortness of Air, No Weakness Allergies and Home Medications Allergies Coded Allergies: hydrocodone (Verified Allergy, Mild, VOMITING, 12/13/16) Sulfa (Sulfonamide Antibiotics) (Verified Allergy, Unknown, ANAPHYLAXIS, ) erythromycin base (Verified Allergy, Unknown, 12/13/16) Home Medications Clorazepate Dipotassium 7.5 Mg Tablet, 7.5 MG PO TID, (Reported) Fluticasone Propionate 9.9 Ml [place].susp, 1 SPR NS DAILY, (Reported) Ondansetron 4 Mg Tab.rapdis, 4 MG PO Q6H PRN for NAUSEA/VOMITING, #8 Ref 0 Prescribed by: CAYDEN GUTIERRES on 12/16/162024 Oxycodone HCl/Acetaminophen 1 Each Tablet, 1-2 EACH PO Q6H PRN for PAIN, #16 Ref 0 Prescribed by: CAYDEN GUTIERRES on 12/16/162024 Propranolol Hcl 120 Mg Cap.sr.24h, 200 MG PO DAILY, (Reported) Review of Systems Constitutional: see HPI, No chills, No fever EENTM: No Symptoms Reported Respiratory: No Symptoms Reported Cardiovascular: No Symptoms Reported Gastrointestinal: See HPI, Abdominal Pain, Denies Diarrhea, Nausea, Denies Rectal Bleeding, Denies Vomiting Genitourinary: See HPI, Denies Pain Musculoskeletal: no symptoms reported Skin: no symptoms reported All Other Systems Reviewed Negative Unless Noted: Yes Past Eqifuru-Kumdzr-Ubobgg Hx Patient Social History Alcohol Use: Denies Use Recreational Drug Use: No Smoking Status: Current Everyday Smoker Type Used: Cigarettes 2nd Hand Smoke Exposure: Yes Recent Foreign Travel: No Contact w/Someone Who Travel: No Recent Infectious Disease Expo: No Recent Hopitalizations: Yes (ablation 11/28, ear sx 12/05) Immunizations Up To Date Tetanus Booster (TDap): More than 5yrs Date of Pneumonia Vaccine: Sep 19, 2010 Date of Influenza Vaccine: Jun 03, 2016 Seasonal Allergies Seasonal Allergies: Yes Surgeries HX Surgeries: Yes (2001 TUBAL PREGNACY,1988 LAP EXP FOR ENDOMETREOSIS, D&C, R SHOULDER SCOPE) Surgeries: Gallbladder Respiratory Hx Respiratory Disorders: No Cardiovascular Hx Cardiac Disorders: Yes (mild mitral valve prolapse) Neurological Hx Neurological Disorders: Yes (TAKES CHLORAZPAETE FOR SEIZURES-LAST SEIZURE ) Neurological Disorders: Seizure Disorder Reproductive System Hx Reproductive Disorders: Yes (AUB, MENORRHAGIA) Sexually Transmitted Disease: No HIV/AIDS: No Female Reproductive Disorders: Endometriosis, Ovarian Cyst Genitourinary Hx Genitourinary Disorders: No Gastrointestinal Hx Gastrointestinal Disorders: Yes Gastrointestinal Disorders: Gastroesophageal Reflux, Diverticulosis, Polyps, Irritable Bowel Musculoskeletal Hx Musculoskeletal Disorders: No Endocrine Hx Endocrine Disorders: No HEENT HX ENT Disorders: Yes (READING GLASSES, PARTIAL PLATE, ) Loss of Vision: Bilateral Hearing Impairment: Denies Cancer Hx Cancer: No Psychosocial Hx Psychiatric Problems: Yes (SEIZURES ARE FROM ANXIETY ) Behavioral Health Disorders: Anxiety Integumentary HX Skin/Integumentary Disorder: No Blood Transfusions Hx Blood Disorders: No Adverse Reaction to a Blood Tr: No Reviewed Nursing Assessment Reviewed/Agree w Nursing PMH: Yes Family Medical History Significant Family History: No Pertinent Family Hx Physical Exam Vital Signs VS - Last 72 Hours, by Label 12/16/16 17:57 Temp 98.9 Pulse 72 Resp 18 B/P (MAP) 127/94 Pulse Ox 98 Capillary Refill : Less Than 3 Seconds General Appearance: WD/WN, no apparent distress HEENT: PERRL/EOMI, pharynx normal Neck: full range of motion, supple Respiratory: lungs clear, normal breath sounds Cardiovascular: regular rate, rhythm, no murmur Gastrointestinal: soft, guarding, No rebound, tenderness (suprapubic and right lower quadrant) Extremities: non-tender, normal inspection Back: normal inspection, no CVA tenderness, no vertebral tenderness Neurologic/Psychiatric: alert, oriented x 3 Skin: normal color, warm/dry Progress/Results/Core Measures Results/Orders Lab Results Laboratory Tests Test 12/16/16 18:35 12/16/16 19:52 Range/Units White Blood Count 13.2 H 4.3-11.0 10^3/uL Red Blood Count 4.14 L 4.35-5.85 10^6/uL Hemoglobin 12.8 11.5-16.0 G/DL Hematocrit 38 35-52 % Mean Corpuscular Volume 93 80-99 FL Mean Corpuscular Hemoglobin 31 25-34 PG Mean Corpuscular Hemoglobin Concent 33 32-36 G/DL Red Cell Distribution Width 12.5 10.0-14.5 % Platelet Count 260 130-400 10^3/uL Mean Platelet Volume 10.3 7.4-10.4 FL Neutrophils (%) (Auto) 58 42-75 % Lymphocytes (%) (Auto) 34 12-44 % Monocytes (%) (Auto) 6 0-12 % Eosinophils (%) (Auto) 1 0-10 % Basophils (%) (Auto) 0 0-10 % Neutrophils # (Auto) 7.6 1.8-7.8 X 10^3 Lymphocytes # (Auto) 4.5 H 1.0-4.0 X 10^3 Monocytes # (Auto) 0.8 0.0-1.0 X 10^3 Eosinophils # (Auto) 0.2 0.0-0.3 10^3/uL Basophils # (Auto) 0.1 0.0-0.1 10^3/uL Sodium Level 141 135-145 MMOL/L Potassium Level 3.6 3.6-5.0 MMOL/L Chloride Level 106 98-107 MMOL/L Carbon Dioxide Level 27 21-32 MMOL/L Anion Gap 8 5-14 MMOL/L Blood Urea Nitrogen 9 7-18 MG/DL Creatinine 0.79 0.60-1.30 MG/DL Estimat Glomerular Filtration Rate > 60 BUN/Creatinine Ratio 11 Glucose Level 104 70-105 MG/DL Calcium Level 8.9 8.5-10.1 MG/DL Total Bilirubin 0.2 0.1-1.0 MG/DL Aspartate Amino Transf (AST/SGOT) 9 5-34 U/L Alanine Aminotransferase (ALT/SGPT) 10 0-55 U/L Alkaline Phosphatase 75 40-136 U/L Total Protein 6.4 6.4-8.2 G/DL Albumin 3.7 3.2-4.5 G/DL Urine Color YELLOW Urine Clarity SLIGHTLY CLOUDY Urine pH 7 5-9 Urine Specific [place] 1.015 L 1.016-1.022 Urine Protein NEGATIVE NEGATIVE Urine Glucose (UA) NEGATIVE NEGATIVE Urine Ketones NEGATIVE NEGATIVE Urine Nitrite NEGATIVE NEGATIVE Urine Bilirubin NEGATIVE NEGATIVE Urine Urobilinogen NORMAL NORMAL MG/DL Urine Leukocyte Esterase 1+ H NEGATIVE Urine RBC (Auto) NEGATIVE NEGATIVE Urine RBC NONE /HPF Urine WBC 0-2 /HPF Urine Squamous Epithelial Cells 0-2 /HPF Urine Crystals NONE /LPF Urine Bacteria NONE /HPF Urine Casts NONE /LPF Urine Mucus NEGATIVE /LPF Urine Culture Indicated NO My Orders Orders - CAYDEN GUTIERRES MD Cbc With Automated Diff (12/16/16 18:24) Comprehensive Metabolic Panel (12/16/16 18:24) Ua Culture If Indicated (12/16/16 18:24) Fentanyl Injection (Sublimaze Injection (12/16/16 18:24) Ketorolac Injection (Toradol Injection) (12/16/16 18:24) Saline Lock/Iv-Start (12/16/16 18:24) Ns Iv 500 Ml (Sodium Chloride 0.9%) (12/16/16 18:24) Us Non Ob Pelvis Comp/Transvag (12/16/16 18:24) Medications Given in ED Current Medications Medications Dose Ordered Sig/Cherry Route Start Time Stop Time Status Last Admin Dose Admin Sodium Chloride 500 ml @ 0 mls/hr Q0M ONCE IV 12/16/16 18:24 12/16/16 18:26 DC 12/16/16 18:37 0 MLS/HR Vital Signs/I&O Vital Sign - Last 12Hours 12/16/16 17:57 Temp 98.9 Pulse 72 Resp 18 B/P (MAP) 127/94 Pulse Ox 98 Blood Pressure Mean: 105 Progress Note : Progress Note seen and evaluated. IV, labs and UA ordered. Ultrasound pelvis ordered. I did discuss the case with Dr. JUARES who is not currently manager of organizational development. She stated that they instructed her to come for further evaluation due to uncontrolled pain. He is requesting that I call back if there is concerns of surgical emergency. He agrees with the plan as stated above. [id number] g IVand Toradol 30 mg IV ordered. Normal saline 500 mL bolus. 2024: Ultrasound results noted. Labs reviewed. Dr. JUARES paged. 2030: I did discuss the case with Dr. JUARES and he will see the patient in clinic tomorrow with likely OR on . Patient agrees to that plan. Pain medicine and nausea medicine prescription given for home. Patient is in full agreement with plan. Discharged home with return precautions. Patient verbalize understanding instructions and agreement with plan. Diagnostic Imaging Diagonstic Imaging: Ultrasound Plain Films/CT/US/NM/MRI: pelvis Comments NAME: WOLFGANG PHILLIPS [facility] REC#: [id number] PT STATUS: REG ER : 1965 PHYSICIAN: CAYDEN GUTIERRES MD ADMIT DATE: 12/16/16/ER Signed Date of Exam: 12/16/16 US NON OB PELVIS COMP/TRANSVAG Examination: Ultrasound pelvis Date: December 16, 2016. Indication: 51-year-old female, right-sided pelvic pain. History of ablation on November 28. Comparison: December 13, 2016 CT abdomen and pelvis. Technique: A sonogram of the pelvis was performed utilizing transabdominal and endovaginal approaches assessing stacy-scale appearance and color Doppler flow. Findings: The uterus measures 6.7 x 4.8 x 3.4 cm. No focal uterine mass is demonstrated. The endometrium measures 0.6 cm in diameter. There is an echogenic mass in the right adnexa which measures 3.3 x 2.8 x 3.9 cm in size which correlates with a fat-containing lesion on comparison CT. This is consistent with a teratoma. There is difficulty visualizing normal appearing right ovarian parenchyma. The left ovary is not well seen. There is no free pelvic fluid demonstrated. Impression: 1. Right ovarian dermoid/teratoma measuring 3.3 x 2.8 x 3.9 cm in size. 2. Endometrial thickness measuring 6 mm. 3. Nonvisualization of left ovary. 4. No free pelvic fluid. Dictated by: Dictated on workstation # [id number] Dict: 12/16/161950 Trans: 12/16/162020 Interpreted by: DARIANA ROSADO MD Electronically signed by: DARIANA ROSADO MD 12/16/162020 Departure Impression Impression: Primary Impression: Right ovarian cyst Disposition: 01 HOME, SELF-CARE Condition: Stable Departure-Patient Inst. Decision time for Depature: 20:45 Referrals: [facility] (PCP/Family) Primary Care Physician PATRIA JUARES DO Patient Instructions: Ovarian Cyst (DC) Add. Discharge Instructions: All discharge instructions reviewed with patient and/or family. Voiced understanding. Take medications as directed. Call Dr. Juares's office in the morning for appointment tomorrow. Return for worse pain, fever, vomiting, weakness, breathing problems or other concerns as needed. Drink plenty of fluids. Scripts Oxycodone HCl/Acetaminophen (Oxycodone-Acetaminophen 5-325) 1 Each Tablet 1-2 EACH PO Q6H Y for PAIN, #16 TAB 0 Refills Prov: CAYDEN GUTIERRES MD 12/16/16 Ondansetron (Ondansetron Odt) 4 Mg Tab.rapdis 4 MG PO Q6H Y for NAUSEA/VOMITING, #8 TAB 0 Refills Prov: CAYDEN GUTIERRES MD 12/16/16 Copy Copies To 1: PATRIA JUARES TIMOTHY D MD Dec 16, 2016 18:31
[2016-12-16 18:48] LABS: BASOPHILS # (AUTO) 0.1 10^3/uL (0.0-0.1); BASOPHILS % (AUTO) 0 % (0-10); EOSINOPHILS # (AUTO) 0.2 10^3/uL (0.0-0.3); EOSINOPHILS % (AUTO) 1 % (0-10); LYMPHOCYTES # (AUTO) 4.5 X 10^3 (1.0-4.0); LYMPHOCYTES % (AUTO) 34 % (12-44); MEAN CORPUSCULAR HEMOGLOBIN 31 PG (25-34); MEAN CORPUSCULAR HGB CONC 33 G/DL (32-36); MEAN CORPUSCULAR VOLUME 93 FL (80-99); MEAN PLATELET VOLUME 10.3 FL (7.4-10.4); MONOCYTES # (AUTO) 0.8 X 10^3 (0.0-1.0); MONOCYTES % (AUTO) 6 % (0-12); NEUTROPHILS # (AUTO) 7.6 X 10^3 (1.8-7.8); NEUTROPHILS % (AUTO) 58 % (42-75); PLATELET COUNT 260 10^3/uL (130-400); RED BLOOD COUNT 4.14 10^6/uL (4.35-5.85); RED CELL DISTRIBUTION WIDTH 12.5 % (10.0-14.5); WHITE BLOOD COUNT 13.2 10^3/uL (4.3-11.0)
[2016-12-16 19:10] LABS: ALANINE AMINOTRANSFERASE 10 U/L (0-55); ALBUMIN 3.7 G/DL (3.2-4.5); ANION GAP 8 MMOL/L (5-14); ASPARTATE AMINO TRANSFERASE 9 U/L (5-34); BILIRUBIN,TOTAL 0.2 MG/DL (0.1-1.0); BLOOD UREA NITROGEN 9 MG/DL (7-18); BUN/CREATININE RATIO 11; CALCIUM 8.9 MG/DL (8.5-10.1); CARBON DIOXIDE 27 MMOL/L (21-32); CHLORIDE 106 MMOL/L (98-107); CREATININE SERUM 0.79 MG/DL (0.60-1.30); GFR ESTIMATED > 60; GLUCOSE 104 MG/DL (70-105); POTASSIUM 3.6 MMOL/L (3.6-5.0); SODIUM 141 MMOL/L (135-145); TOTAL PROTEIN 6.4 G/DL (6.4-8.2)
[2016-12-16 20:00] LABS: BILIRUBIN,URINE NEGATIVE (NEGATIVE); KETONES,URINE NEGATIVE (NEGATIVE); LEUKOCYTE ESTERASE ,URINE 1+ (NEGATIVE); NITRITE,URINE NEGATIVE (NEGATIVE); PH,URINE 7 (5-9); PROTEIN,URINE NEGATIVE (NEGATIVE); UROBILINOGEN,URINE NORMAL (NORMAL)
--- NOTE | 2016-12-16 20:01 | Diagnostic Imaging Report ---
Examination: Ultrasound pelvis Date: December 16, 2016. Indication: 51-year-old female, right-sided pelvic pain. History of ablation on November 28. Comparison: December 13, 2016 CT abdomen and pelvis. Technique: A sonogram of the pelvis was performed utilizing transabdominal and endovaginal approaches assessing stacy-scale appearance and color Doppler flow. Findings: The uterus measures 6.7 x 4.8 x 3.4 cm. No focal uterine mass is demonstrated. The endometrium measures 0.6 cm in diameter. There is an echogenic mass in the right adnexa which measures 3.3 x 2.8 x 3.9 cm in size which correlates with a fat-containing lesion on comparison CT. This is consistent with a teratoma. There is difficulty visualizing normal appearing right ovarian parenchyma. The left ovary is not well seen. There is no free pelvic fluid demonstrated. Impression: 1. Right ovarian dermoid/teratoma measuring 3.3 x 2.8 x 3.9 cm in size. 2. Endometrial thickness measuring 6 mm. 3. Nonvisualization of left ovary. 4. No free pelvic fluid. Dictated by: Dictated on workstation # [id number]
[2016-12-16 20:07] LABS: SQUAMOUS EPITHELIAL CELL,UR 0-2 /HPF; WBC,URINE 0-2 /HPF
[2016-12-16] MEDS ORDERED: ONDA4TAB11 PO (20:25)
[2016-12-16] MEDS ORDERED: OXYC-471 PO (20:25)
[2016-12-16 20:53] VITALS: BP 118/90
[2016-12-19] MEDS ORDERED: OXYC-471 PO (11:39)
[2016-12-19] MEDS ORDERED: SCOP1PAT TOP (11:39)
[2016-12-19] MEDS ORDERED: IBUP-1773 PO (11:39)
== END 2016-12-16 20:53 | disposition home or self-care (01) ==
LOC: EDUNIT# 17:31 → ER 17:32
DX: D27.9 Benign neoplasm of unspecified ovary (principal); F17.210 Nicotine dependence, cigarettes, uncomplicated
CPT/HCPCS: 36415; 76830; 76856; 80053; 81000; 85025; 96374; 96375

== ENCOUNTER 2016-12-17 11:34 | Outpatient (CLI) | payer MEDICAID ==
[~2016-12-17] VITALS: Ht 170.2 cm; Wt 73.2 kg
[~2016-12-17 11:34] MED LIST changes: +ONDA4TAB11 PO; +OXYC-471 PO
[2016-12-19] MEDS ORDERED: OXYC-471 PO (11:39)
[2016-12-19] MEDS ORDERED: SCOP1PAT TOP (11:39)
[2016-12-19] MEDS ORDERED: IBUP-1773 PO (11:39)
== END 2016-12-17 12:16 | disposition home or self-care (01) ==
LOC: PREOP 11:34
PROVIDERS: ATTEND Obstetrics & Gynecology
DX: Z01.818 Encounter for other preprocedural examination (principal); Z11.2 Encounter for screening for other bacterial diseases; N83.9 Noninflammatory disorder of ovary, fallopian tube and broad ligament, unspecified
CPT/HCPCS: 87081

== ENCOUNTER 2016-12-19 10:32 | Day surgery (SDC) | payer MEDICAID ==
[~2016-12-19] VITALS: Ht 170.2 cm; Wt 73.2 kg
[2016-12-19 11:08] VITALS: BP 116/76
[2016-12-19] MEDS ORDERED: LACTATED RINGERS 1,000 ML IV PRN (11:18)
[2016-12-19] MEDS ORDERED: SCOPOLAMINE 1.5 MG (TRANSDERM-SCOP) PATCH TOP ONE (11:30)
[2016-12-19] MEDS ORDERED: FAMOTIDINE 20MG/2ML IV (PEPCID) IV ONE (11:30)
[2016-12-19] MEDS ORDERED: ONDANSETRON 4 MG/2 ML (SDV) Z0FRAN IV ONE (11:30)
[2016-12-19] MEDS ORDERED: D5 LR IV SOLUTION 1,000 ML IV SCH (11:35)
--- NOTE | 2016-12-19 11:35 | Progress Note-Pre Operative ---
Pre-Operative Progress Note H&P Reviewed The H&P was reviewed, patient examined and no changes noted. Date H&P Reviewed: Dec 19, 2016 Time H&P Reviewed: 11:35 Pre-Operative Diagnosis: Right solid adnexal mass PATRIA EASTON DO Dec 19, 2016 11:35 am
[2016-12-19] MEDS ORDERED: OXYC-471 PO (11:39)
[2016-12-19] MEDS ORDERED: SCOP1PAT TOP (11:39)
[2016-12-19] MEDS ORDERED: IBUP-1773 PO (11:39)
--- NOTE | 2016-12-19 11:40 | Discharge Inst-Women's Service ---
Discharge Inst-Women's Serv Depart Medication/Instructions New, Converted or Re-Newed RX: RX on Chart Consults/Follow Up Orders/Referrals Dr. Juares in 2 - 3 weeks Activity Activity: Activity as Tolerated Driving Instructions: You May Drive (do not drive while taking oxycodone) NO SMOKING: NO SMOKING Nothing Inside Vagina: No Douching, No [place], No Tampons Diet Discharge Diet: No Restrictions Symptoms to Report to : Bleeding Excessive, Pain Increased, Fever Over 101 Degrees F, Vaginal Bleeding Increase, Questions/Concerns For Any Problems or Questions: Contact Your Physician Skin/Wound Care Infection Signs and Symptoms: Increased Redness, Foul Odor of Wound, Increased Drainage, Skin Itchy or Has a Rash, Increased Swelling, Temperature Above 101 F Operative Area Clean and Dry: Keep Incision Clean/Dry Stitches/Jen/Dermabond: Dermabond, Care of Stitches Bathing Instructions: PATRIA Lan DO Dec 19, 2016 11:40 am
[2016-12-19] MEDS ORDERED: fentaNYL INJECTION 250 MCG/5 ML AMP ONE (11:42)
[2016-12-19] MEDS ORDERED: MIDAZOLAM 2 MG/2 ML (VERSED) VIAL ONE (11:42)
[2016-12-19] MEDS ORDERED: KETOROLAC 30 MG/ML VIAL IVP ONE (11:45)
[2016-12-19] MEDS ORDERED: ONDANSETRON 4 MG/2 ML (SDV) Z0FRAN IVP PRN ×2 (11:45→13:00)
[2016-12-19] MEDS ORDERED: oxyCODONE/APAP 5/325MG (PERCOCET 5) TABLET PO PRN (11:45)
[2016-12-19] MEDS ORDERED: ROCURONIUM 50 MG/5 ML (ZEMURON) VIAL IV ONE (11:48)
[2016-12-19] MEDS ORDERED: SEVOFLURANE (ULTANE) 15 ML INHAL SOLN ONE (11:48)
[2016-12-19] MEDS ORDERED: proPOfol 200 MG/20 ML (DIPRIVAN) VIAL IV ONE (11:48)
[2016-12-19] MEDS ORDERED: IBUPROFEN 600 MG (MOTRIN) TAB PO SCH (12:00)
[2016-12-19] MEDS ORDERED: BUPIVACAINE 0.25% 30 ML (SENSORCAINE) VIAL ONE (12:08)
[2016-12-19] MEDS ORDERED: NEOSTIGMINE (BLOXIVERZ ) 1 MG/1ML 10 ML VIAL ONE (12:20)
[2016-12-19] MEDS ORDERED: GLYCOPYRROLATE 0.2 MG/ML (ROBINUL) 2 ML VIAL ONE ×2 (12:20→12:34)
[2016-12-19] MEDS ORDERED: ATROPINE INJ 0.4 MG/ML SDV ONE (12:34)
[2016-12-19] MEDS ORDERED: morphine INJ 10 MG/ML 1ML (SYR OR VIAL) ONE (12:35)
[2016-12-19] MEDS: morphine INJ 10 MG/ML 1ML (SYR OR VIAL) IVP PRN ×2 (13:00→13:05)
[2016-12-19] MEDS: HYDROmorphone (DILAUDID) 2 MG/ML VIAL IVP PRN ×4 (13:40→14:10)
[2016-12-19 14:35] VITALS: BP 109/92
[2016-12-19] MEDS ORDERED: oxyCODONE/APAP 5/325MG (PERCOCET 5) TABLET ONE (14:38)
[2016-12-19 15:05] VITALS: BP 116/73
[2016-12-19 15:35] VITALS: BP 97/63
[2016-12-19 16:30] VITALS: BP 97/63
--- NOTE | 2016-12-20 05:34 | OPERATIVE REPORT ---
DATE OF SERVICE: 12/19/2016 PREOPERATIVE DIAGNOSIS: Right ovarian mass. POSTOPERATIVE DIAGNOSIS: Right ovarian mass. PROCEDURE: Laparoscopic right salpingo-oophorectomy. SURGEON: Krunal Juares DO RESIDENT CARE SPEC: Rafaela Ramirez, MS4 ANESTHESIA: General endotracheal. ESTIMATED BLOOD LOSS: Minimal. URINE OUTPUT: 20 mL, clear at the end of procedure. FLUIDS: 1200 mL of lactated Ringer's solution. FINDINGS: A bulky and large solid appearing right ovary. No evidence of excrescence or concerning malignancy findings. Smooth peritoneum of the pelvis noted otherwise. Grossly normal appearing bilateral fallopian tubes and left ovary. Normal appearing uterus as well. SPECIMENS SENT: Right tube and ovary. INDICATIONS FOR PROCEDURE: This 51-year-old female had recently undergone a D and C with endometrial ablation earlier this month; however, she did have a finding of a right ovarian mass, which we were following with ultrasound to monitor growth. The patient began to have acute pain associated with this mass, which brought her to Emergency Department on 2 separate occasions, both of which identified this ovarian mass to be slightly enlarging in the same area as previously demonstrated in the right lower quadrant. I discussed with the patient, after her Emergency Room followup removal of this pelvic mass concerning for her age as well as its solid appearance, I discussed with the patient the possibility of underlying malignancy; however, we would not know that until final pathology was revealed. I discussed with the patient removal because of the pain and that being our main underlying indication. Risks of the procedure were discussed with the patient in detail, including risk of bleeding, infection, damage to any surrounding structures, including but not limited to bowel, bladder, ureter, kidneys, risks from anesthesia, postoperative hematoma formation, postoperative thromboembolic events. After everything was discussed with the patient, and all of her questions were answered, consent was obtained with her present and the patient was then taken to the operating room. OPERATIVE REPORT IN DETAIL: Once in the operating room, general anesthesia was found to be adequate, placed in the dorsal lithotomy position and prepped and draped in the normal sterile fashion. I first examined the patient under anesthesia. The uterus was not enlarged, freely mobile. The adnexa were difficult to palpate due to the patient's body habitus. I placed a Baltazar catheter using sterile technique. I placed a weighted speculum in the patient's vagina. A right angle retractor was used to visualize the cervix. It was grasped at 12 o'clock position using a long Allis clamp. I then gently sounded the cavity, depth was found to be 7 cm. I then placed a Kroner uterine manipulator to the depth of 7 cm, deploying in a balloon and using this is as my uterine manipulation tool. I then performed a change of gloves and removal of the instruments from the patient's vagina and taking my attention to the abdomen, where infraumbilically I infiltrated this area using 0.25% Marcaine to make a 5 mm incision and directed Veress needle through this incision. Intraperitoneal placement is confirmed using saline drop test. I then proceeded with insufflation using CO2 gas to opening pressure of 4 mmHg. As noted, I proceeded with a maximum pressure of 15 mmHg; at which point, I removed the Veress needle and introduced a 5 mm blunt trocar. Once this was in place, I am able to confirm intraperitoneal placement using the laparoscope. I had the patient placed in steep Trendelenburg, which allowed me to visualize the anatomy as described in my findings above, which is a grossly normal appearing left ovary, but a right ovary that appears abnormal, slightly enlarged, appears to be adipose tissue containing as well. I placed a second and third trocar. The second trocar is a 12 mm trocar directly above the pubic symphysis. The skin is infiltrated using 0.25% Marcaine, 12 mm incision was placed and I placed this trocar under direct visualization of the laparoscope. I then placed a third trocar, this was a 5 mm in the right lower quadrant. The skin is infiltrated with Marcaine and a 5 mm incision was made. This trocar was placed under direct visualization of the laparoscope. Once this was in placed, I am able to perform the following dissection: Using a 5 mm LigaSure, I grasped the infundibulopelvic ligament, bipolar cauterized this and transected using the LigaSure. I then grasped the uteroovarian ligament, bipolar cauterized this and transected using the LigaSure. I then amputated the fallopian tube and ovary of the right adnexa from its surrounding connections and mesovarium and mesosalpinx from its surrounding tissue using the LigaSure. Once it is amputated, it is left in the posterior cul-de-sac for me to retrieve using an Endopouch bag. I retrieved this using the Endopouch bag through the larger 12 mm trocar site. It was removed easily after extending the fascia of this incision slightly using the Parry scissors. Once it is removed, it is sent as right tube and ovary for permanent pathology. I then released insufflation after copiously irrigating the pelvis using normal saline and no active bleeding is noted from any of my dissection planes. Insufflations were released through my larger trocar site. The other 2 trocars are removed under direct visualization of the laparoscope. Once they are removed, I closed the 12 mm trocar site, first closing the fascia using 0 Vicryl suture in a [id number] fashion. I then closed the skin using 4-0 Monocryl in running subcuticular. Dermabond is used to seal the incision of the 12 mm site as well as to close the other 2 sites which were only 5 mm. The Kroner uterine manipulator and Baltazar catheter were removed at that point. The patient tolerated the procedure well and sent to recovery area in stable condition. Lap and sponge counts were correct at the end of the procedure. Instrument count is correct as well. Job ID: [id number] DocumentID: [id number] Dictated Date: 12/19/2016 14:03:59 Pig Machine Operator Helper Date: 12/20/2016 04:47:12 Dictated By: DO ERNESTINA MELÉNDEZ
== END 2016-12-19 16:30 | disposition home or self-care (01) ==
LOC: SDC 10:32
PROVIDERS: ATTEND Obstetrics & Gynecology
DX: D27.0 Benign neoplasm of right ovary (principal)
CPT/HCPCS: 84703; 86850; 86900; 86901; 88307

== ENCOUNTER 2017-08-02 00:36 | Emergency (ER) | payer MEDICAID ==
[~2017-08-02] VITALS: Ht 170.2 cm; Wt 73.2 kg
[~2017-08-02 00:36] MED LIST changes: +HYOS-20 PO; -HYOS0.1216 PO; +SCOP1PAT TOP
--- OUTSIDE RECORDS SUMMARY | 2017-08-02 00:44 | XMS REPORT ---
Author Author LETTY WILKINS [facility] Address [address] [place] [address] Care Team Providers Care Boiler Plant Operator Name Role Phone LETTY WILKINS Unavailable PROBLEMS Type Condition ICD9-CM Code ULL54-KB Code Onset Dates Condition Status SNOMED Code Problem Family history of diabetes mellitus Z83.3 Active 034343505 Problem Hot flashes N95.1 Active 478382863 Problem Excessive and frequent menstruation with irregular cycle N92.1 Active 445977791 Problem Gastroesophageal reflux disease with esophagitis K21.0 Active 434969659 Problem Tachycardia R00.0 Active 0125175 Problem Mitral valve prolapse I34.1 Active 622690996 Problem Perimenopausal N95.1 Active 648443830568576 Problem Dental examination Z01.20 Active 929443476 Problem Abnormal uterine bleeding (AUB) N93.9 Active 63839546194248 Problem History of diverticulitis Z87.19 Active 599478308141029 Problem History of colon polyps Z86.010 Active 849509518 Problem Generalized anxiety disorder F41.1 Active 543491174 Problem Dense breast tissue R92.2 Active 856376694 Problem Hypertension I10 Active 71224629 Problem History of ovarian cyst Z87.42 Active 19087057 ALLERGIES No Information SOCIAL HISTORY Never Assessed PLAN OF CARE VITAL SIGNS MEDICATIONS Medication Instructions Dosage Frequency Start Date End Date Duration Status Clorazepate Dipotassium 7.5 MG Orally 4 times a day 1 tablet as needed 6h 90 days Active InnoPran XL 80 MG Orally Once a day. 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
--- OUTSIDE RECORDS SUMMARY | 2017-08-02 00:44 | XMS REPORT ---
Author Author KVNG MERCHANT Organization [facility] Address [address] [place] [address] Care Team Providers Care Mushroom Laborer Name Role Phone KVNG MERCHANT Unavailable PROBLEMS Type Condition ICD9-CM Code ACK09-NI Code Onset Dates Condition Status SNOMED Code Problem Family history of diabetes mellitus Z83.3 Active 179976383 Problem Hot flashes N95.1 Active 795397398 Problem Excessive and frequent menstruation with irregular cycle N92.1 Active 157161574 Problem Gastroesophageal reflux disease with esophagitis K21.0 Active 806210876 Problem Tachycardia R00.0 Active 2060596 Problem Mitral valve prolapse I34.1 Active 301460319 Problem Perimenopausal N95.1 Active 436306026461942 Problem Dental examination Z01.20 Active 807837338 Problem Abnormal uterine bleeding (AUB) N93.9 Active 82795551080628 Problem History of diverticulitis Z87.19 Active 094448190894083 Problem History of colon polyps Z86.010 Active 949206308 Problem Generalized anxiety disorder F41.1 Active 369858048 Problem Dense breast tissue R92.2 Active 511293684 Problem Hypertension I10 Active 41741199 Problem History of ovarian cyst Z87.42 Active 74271354 ALLERGIES No Information SOCIAL HISTORY Never Assessed PLAN OF CARE Activity Details Follow Up 4 Weeks Reason: Follow-up VITAL SIGNS MEDICATIONS Unknown Medications RESULTS No Results PROCEDURES Procedure Date Ordered Result Body Site Psychotherapy, patient &/family, 45 minutes, established patient January 14, 2017 IMMUNIZATIONS No Known Immunizations MEDICAL (GENERAL) HISTORY Type Description Date Medical History Hypertension Medical History Diverticulitis Medical History Tachycardia Medical History Headaches Medical History Cyst removed off finger removed part of the bone Surgical History Right tendonectomy of bicep and clean up of rotator cuff 2014 Surgical History new tubes in ears 11/04/2016 Surgical History 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
--- OUTSIDE RECORDS SUMMARY | 2017-08-02 00:44 | XMS REPORT ---
Author Author KVNG MERCHANT [facility] Address [address] [place] [address] Care Team Providers Care Public Health Officer Name Role Phone KVNG MERCHANT Unavailable PROBLEMS Type Condition ICD9-CM Code JDQ41-ZS Code Onset Dates Condition Status SNOMED Code Problem Generalized anxiety disorder F41.1 Active 792781891 Problem Screening for malignant neoplasm of the cervix V76.2 Active 341415531 Problem Family history of diabetes mellitus V18.0 Active 081113536 Problem Need for prophylactic vaccination and inoculation, Influenza V04.81 Active 147049925 Problem Abdominal pain, unspecified site 789.00 Active 28583607 Problem History of colon polyps Z86.010 Active 825884619 Problem Dysphagia, unspecified 787.20 Active 74852750 Problem Dense breast tissue R92.2 Active 725605645 Problem Chest pain, unspecified 786.50 Active 71668443 Problem History of ovarian cyst Z87.42 Active 23336597 Problem Perimenopausal N95.1 Active 072328405544608 Problem Hot flashes N95.1 Active 653563148 Problem Tachycardia R00.0 Active 2289607 Problem Dental examination Z01.20 Active 443733624 Problem Diverticulosis of small intestine (without mention of hemorrhage) 562.00 Active 8209731 Problem 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 898773106 Problem Rash and other nonspecific skin eruption 782.1 Active 515045902 Problem Excessive and frequent menstruation with irregular cycle N92.1 Active 800574334 Problem Family history of diabetes mellitus Z83.3 Active 866346930 Problem Abnormal uterine bleeding (AUB) N93.9 Active 57417809731802 Problem Mitral valve prolapse I34.1 Active 694461566 Problem Unspecified gastritis and gastroduodenitis without mention of hemorrhage 535.50 Active 417668083 Problem Unspecified otalgia 388.70 Active 38209143 Problem Esophageal reflux 530.81 Active 311922659 Problem Unspecified vaginitis and vulvovaginitis 616.10 Active 264058614 Problem Hypertension I10 Active 40297326 Problem History of diverticulitis Z87.19 Active 898088205537950 Problem Other and unspecified hyperlipidemia 272.4 Active 55755702 Problem Dermatophytosis of nail 110.1 Active 101289220 ALLERGIES No Information SOCIAL HISTORY Never Assessed PLAN OF CARE Activity Details Follow Up 4 Weeks Reason: Follow-up VITAL SIGNS MEDICATIONS Unknown Medications RESULTS No Results PROCEDURES Procedure Date Ordered Result Body Site Psychotherapy, patient &/family, 45 minutes, established patient Oct 14, 2016 IMMUNIZATIONS No Known Immunizations MEDICAL (GENERAL) HISTORY Type Description Date Medical History Hypertension Medical History Diverticulitis Medical History Tachycardia Medical History Headaches Surgical History Right tendonectomy of bicep and clean up of rotator cuff 2014 Surgical History new tubes in ears 11/04/2016 Surgical History 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
--- OUTSIDE RECORDS SUMMARY | 2017-08-02 00:44 | XMS REPORT ---
Author Author HAO PHILLIPS Organization [facility] Address [address] [place] [address] Care Team Providers Care Remote Sensing Technician Name Role Phone HAO PHILLIPS Unavailable PROBLEMS Type Condition ICD9-CM Code LCD88-MD Code Onset Dates Condition Status SNOMED Code Problem Family history of diabetes mellitus Z83.3 Active 098437279 Problem Hot flashes N95.1 Active 792938654 Problem Excessive and frequent menstruation with irregular cycle N92.1 Active 281612340 Problem Gastroesophageal reflux disease with esophagitis K21.0 Active 169031064 Problem Tachycardia R00.0 Active 9956798 Problem Mitral valve prolapse I34.1 Active 766701356 Problem Perimenopausal N95.1 Active 027571724624425 Problem Dental examination Z01.20 Active 190571748 Problem Abnormal uterine bleeding (AUB) N93.9 Active 47117827169031 Problem History of diverticulitis Z87.19 Active 911451910691357 Problem History of colon polyps Z86.010 Active 287584209 Problem Generalized anxiety disorder F41.1 Active 551010086 Problem Dense breast tissue R92.2 Active 308893576 Problem Hypertension I10 Active 16732382 Problem History of ovarian cyst Z87.42 Active 77555895 ALLERGIES No Information SOCIAL HISTORY Never Assessed PLAN OF CARE VITAL SIGNS MEDICATIONS Medication Instructions Dosage Frequency Start Date End Date Duration Status Vagifem 10 MCG Vaginal once weekly 1 tablet Oct, Active RESULTS No Results PROCEDURES No Known [...]
--- OUTSIDE RECORDS SUMMARY | 2017-08-02 00:44 | XMS REPORT ---
Author Author KVNG MERCHANT [facility] Address [address] [place] [address] Care Team Providers Care Generator Worker Name Role Phone KVNG MERCHANT Unavailable PROBLEMS Type Condition ICD9-CM Code WIK22-LV Code Onset Dates Condition Status SNOMED Code Problem Generalized anxiety disorder F41.1 Active 643542203 Problem Screening for malignant neoplasm of the cervix V76.2 Active 370578495 Problem Family history of diabetes mellitus V18.0 Active 957144026 Problem Need for prophylactic vaccination and inoculation, Influenza V04.81 Active 941024548 Problem Abdominal pain, unspecified site 789.00 Active 51862128 Problem History of colon polyps Z86.010 Active 884905747 Problem Dysphagia, unspecified 787.20 Active 10823737 Problem Dense breast tissue R92.2 Active 931142061 Problem Chest pain, unspecified 786.50 Active 61855125 Problem History of ovarian cyst Z87.42 Active 76109147 Problem Perimenopausal N95.1 Active 132646797197027 Problem Hot flashes N95.1 Active 904332067 Problem Tachycardia R00.0 Active 1758613 Problem Dental examination Z01.20 Active 088428587 Problem Diverticulosis of small intestine (without mention of hemorrhage) 562.00 Active 7574586 Problem 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 241602734 Problem Rash and other nonspecific skin eruption 782.1 Active 213224084 Problem Excessive and frequent menstruation with irregular cycle N92.1 Active 846330195 Problem Family history of diabetes mellitus Z83.3 Active 406763320 Problem Abnormal uterine bleeding (AUB) N93.9 Active 46330339111870 Problem Mitral valve prolapse I34.1 Active 950373909 Problem Unspecified gastritis and gastroduodenitis without mention of hemorrhage 535.50 Active 272614065 Problem Unspecified otalgia 388.70 Active 29632775 Problem Esophageal reflux 530.81 Active 922960977 Problem Unspecified vaginitis and vulvovaginitis 616.10 Active 415338492 Problem Hypertension I10 Active 71351524 Problem History of diverticulitis Z87.19 Active 596073573533318 Problem Other and unspecified hyperlipidemia 272.4 Active 87872488 Problem Dermatophytosis of nail 110.1 Active 845380007 ALLERGIES Unknown Allergies SOCIAL HISTORY No smoking Hx information available PLAN OF CARE Activity Details Follow Up Next available Reason: Follow-up VITAL SIGNS MEDICATIONS Unknown Medications RESULTS No Results PROCEDURES Procedure Date Ordered Related Diagnosis Body Site Psychotherapy, patient &/family, 45 minutes, established patient Sep 11, 2016 IMMUNIZATIONS No Known Immunizations
--- OUTSIDE RECORDS SUMMARY | 2017-08-02 00:45 | XMS REPORT ---
Author Author KVNG MERCHANT Organization [facility] Address [address] [place] [address] Care Team Providers Care Sheet Music Salesperson Name Role Phone KVNG MERCHANT Unavailable PROBLEMS Type Condition ICD9-CM Code JIZ20-CV Code Onset Dates Condition Status SNOMED Code Problem Family history of diabetes mellitus Z83.3 Active 335206954 Problem Hot flashes N95.1 Active 222681540 Problem Excessive and frequent menstruation with irregular cycle N92.1 Active 821447657 Problem Gastroesophageal reflux disease with esophagitis K21.0 Active 375333688 Problem Tachycardia R00.0 Active 4145095 Problem Mitral valve prolapse I34.1 Active 258664253 Problem Perimenopausal N95.1 Active 148284372321357 Problem Dental examination Z01.20 Active 979835312 Problem Abnormal uterine bleeding (AUB) N93.9 Active 45200987454424 Problem History of diverticulitis Z87.19 Active 014344374610038 Problem History of colon polyps Z86.010 Active 490342011 Problem Generalized anxiety disorder F41.1 Active 211625435 Problem Dense breast tissue R92.2 Active 088854015 Problem Hypertension I10 Active 44472784 Problem History of ovarian cyst Z87.42 Active 98470683 ALLERGIES No Information SOCIAL HISTORY Never Assessed PLAN OF CARE Activity Details Follow Up 4 Weeks Reason: Follow-up VITAL SIGNS MEDICATIONS Unknown Medications RESULTS No Results PROCEDURES Procedure Date Ordered Result Body Site Psychotherapy, patient &/family, 45 minutes, established patient December 11, 2016 IMMUNIZATIONS No Known Immunizations MEDICAL (GENERAL) [...]
--- OUTSIDE RECORDS SUMMARY | 2017-08-02 00:46 | XMS REPORT ---
Author Author KVNG MERCHANT [facility] Address [address] [place] [address] Care Team Providers Care Jukebox Operator Name Role Phone KVNG MERCHANT Unavailable PROBLEMS Type Condition ICD9-CM Code DUQ90-[id number] Code Onset Dates Condition Status SNOMED Code Problem Generalized anxiety disorder F41.1 Active 995621759 Problem Diverticulosis of small intestine (without mention of hemorrhage) 562.00 Active 5934013 Problem Esophageal reflux 530.81 Active 288194595 Problem Unspecified gastritis and gastroduodenitis without mention of hemorrhage 535.50 Active 288368822 Problem Dysphagia, unspecified 787.20 Active 41845976 Problem Dense breast tissue R92.2 Active 505785924 Problem Unspecified vaginitis and vulvovaginitis 616.10 Active 938899753 Problem History of ovarian cyst Z87.42 Active 10114625 Problem Family history of diabetes mellitus V18.0 Active 902730692 Problem Perimenopausal N95.1 Active 497457086265291 Problem Hot flashes N95.1 Active 303145817 Problem Excessive and frequent menstruation with irregular cycle N92.1 Active 416957653 Problem Tachycardia R00.0 Active 3383097 Problem Dental examination Z01.20 Active 531827414 Problem 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 992146916 Problem Dermatophytosis of nail 110.1 Active 714953449 Problem Screening for malignant neoplasm of the cervix V76.2 Active 987709297 Problem Family history of diabetes mellitus Z83.3 Active 846119237 Problem History of diverticulitis Z87.19 Active 901671662342213 Problem Abnormal uterine bleeding (AUB) N93.9 Active 45788127235242 Problem Mitral valve prolapse I34.1 Active 398310772 Problem Need for prophylactic vaccination and inoculation, Influenza V04.81 Active 511428912 Problem Abdominal pain, unspecified site 789.00 Active 50582455 Problem Rash and other nonspecific skin eruption 782.1 Active 726240785 Problem Unspecified otalgia 388.70 Active 37134313 Problem Hypertension I10 Active 16779121 Problem History of colon polyps Z86.010 Active 250358317 Problem Other and unspecified hyperlipidemia 272.4 Active 61498945 Problem Chest pain, unspecified 786.50 Active 30447775 ALLERGIES Unknown Allergies SOCIAL HISTORY No smoking Hx information available PLAN OF CARE Activity Details Follow Up 4 Weeks Reason: Follow-up VITAL SIGNS MEDICATIONS Unknown Medications RESULTS No Results PROCEDURES Procedure Date Ordered Related Diagnosis Body Site Psychotherapy, patient &/family, 45 minutes, established patient Aug 13, 2016 IMMUNIZATIONS No Known Immunizations
--- OUTSIDE RECORDS SUMMARY | 2017-08-02 00:46 | XMS REPORT ---
Author Author HAO PHILLIPS [facility] Address [address] [place] [address] Care Team Providers Care Wafer Slicer Name Role Phone HAO PHILLIPS Unavailable PROBLEMS Type Condition ICD9-CM Code MCA67-YO Code Onset Dates Condition Status SNOMED Code Problem Generalized anxiety disorder F41.1 Active 849297475 Problem Screening for malignant neoplasm of the cervix V76.2 Active 259397902 Problem Family history of diabetes mellitus V18.0 Active 539407726 Problem Need for prophylactic vaccination and inoculation, Influenza V04.81 Active 557518526 Problem Abdominal pain, unspecified site 789.00 Active 44654198 Problem History of colon polyps Z86.010 Active 125826312 Problem Dysphagia, unspecified 787.20 Active 17090925 Problem Dense breast tissue R92.2 Active 448583695 Problem Chest pain, unspecified 786.50 Active 62670279 Problem History of ovarian cyst Z87.42 Active 01164499 Problem Perimenopausal N95.1 Active 614198705308349 Problem Hot flashes N95.1 Active 608267242 Problem Tachycardia R00.0 Active 9695676 Problem Dental examination Z01.20 Active 064512142 Problem Diverticulosis of small intestine (without mention of hemorrhage) 562.00 Active 6612769 Problem 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 536011084 Problem Rash and other nonspecific skin eruption 782.1 Active 769129193 Problem Excessive and frequent menstruation with irregular cycle N92.1 Active 651686453 Problem Family history of diabetes mellitus Z83.3 Active 576541239 Problem Abnormal uterine bleeding (AUB) N93.9 Active 78048365129190 Problem Mitral valve prolapse I34.1 Active 909804501 Problem Unspecified gastritis and gastroduodenitis without mention of hemorrhage 535.50 Active 373738962 Problem Unspecified otalgia 388.70 Active 48301945 Problem Esophageal reflux 530.81 Active 420603197 Problem Unspecified vaginitis and vulvovaginitis 616.10 Active 799642042 Problem Hypertension I10 Active 96596589 Problem History of diverticulitis Z87.19 Active 189965054102673 Problem Other and unspecified hyperlipidemia 272.4 Active 35727887 Problem Dermatophytosis of nail 110.1 Active 829598627 ALLERGIES Substance Reaction Event Type Date Status Sulfamethoxazole-Trimethoprim Unknown Drug Allergy Sep, Active Erythromycin rash Drug Allergy Sep, Active Hydrocodone dizziness Non Drug Allergy Sep, Active SOCIAL HISTORY Never Assessed PLAN OF CARE Activity Details Follow Up prn with PCP Mike Reason: VITAL SIGNS Height 66 in 2016-10-22 Weight 162.7 lbs 2016-10-22 Temperature 97.9 degrees Fahrenheit 2016-10-22 Heart Rate 70 bpm 2016-10-22 Respiratory Rate 18 2016-10-22 BMI 26.26 kg/m2 2016-10-22 Blood pressure systolic 124 mmHg 2016-10-22 Blood pressure diastolic 79 mmHg 2016-10-22 MEDICATIONS Medication Instructions Dosage Frequency Start Date End Date Duration Status InnoPran XL 120 MG Orally Once a day 1 capsule at bedtime 24h 30 Active Hydrochlorothiazide 12.5 mg 1-2 capsule by Oral route 1 time per day PRN swelling Jan, Active Mjewwihhuz-FJRN-Qyefipoe 50-325-40 MG Orally and then 1 capsule every 4 hrs PRN not to exceed 6 capsules in 24 hrs 2 capsules at onset of headache Feb, Active Propranolol HCl ER Beads 80 MG Orally Once a day. Take with 120mg Tablet 1 capsule at bedtime Apr, 30 days Active Cipro 500 mg 1 tablet by Oral route every 12 hours for 10 day(s) Nov Active Diflucan 150 MG Orally Once a day 1 tablet now and in 3 days if needed 24h Sep, 1 dose Active Hyoscyamine Sulfate 0.125 MG TAKE ONE TABLET BY MOUTH FOUR TIMES DAILY NEEDED 8 Active Vagifem 10 MCG Vaginal once a day for 2 weeks and then once weekly 1 tablet Sep, 30 day(s) Active Hyoscyamine Sulfate 0.125 mg 1 tablet by Oral route 4 times per day PRN Jul, Active InnoPran XL 80 MG Orally Once a day 1 capsule at bedtime 24h May, 30 day(s) Active Clorazepate Dipotassium 7.5 MG TAKE ONE TABLET BY MOUTH TWICE DAILY. ALSO MAY TAKE ONE OR TWO TABLETS IN THE AFTERNOON NEEDED FOR ANXIETY 6h Active Zofran 4 MG Orally every 8 hours, PRN 1 tablets Apr, 30 days Active Hydrochlorothiazide 12.5 MG TAKE ONE TO TWO CAPSULES BY MOUTH ONCE DAILY NEEDED FOR SWELLING Active Propranolol HCl 20 mg Orally Once a day as needed for arrhythmia 1 tablet Sep, 30 day(s) Active Flonase 50 mcg/actuation 2 Nasal [place] by Nasal route 1 time per day May, Active RESULTS Name Result Date Reference Range Mammogram, Bilateral Screening 2016-11-14 PROCEDURES No Known procedures IMMUNIZATIONS No Known [...]
--- OUTSIDE RECORDS SUMMARY | 2017-08-02 00:46 | XMS REPORT ---
Author Author VIVIANE JAISON [facility] Address [address] [place] [address] Care Team Providers Care Typewriter Tester Name Role Phone PANSIMONE MEDINALYN Unavailable PROBLEMS Type Condition ICD9-CM Code OBT91-LL Code Onset Dates Condition Status SNOMED Code Problem Generalized anxiety disorder F41.1 Active 563536925 Problem Screening for malignant neoplasm of the cervix V76.2 Active 617463781 Problem Family history of diabetes mellitus V18.0 Active 623524933 Problem Need for prophylactic vaccination and inoculation, Influenza V04.81 Active 778628548 Problem Abdominal pain, unspecified site 789.00 Active 05456514 Problem History of colon polyps Z86.010 Active 798566166 Problem Dysphagia, unspecified 787.20 Active 17566378 Problem Dense breast tissue R92.2 Active 635362739 Problem Chest pain, unspecified 786.50 Active 28275794 Problem History of ovarian cyst Z87.42 Active 63442712 Problem Perimenopausal N95.1 Active 840481242138239 Problem Hot flashes N95.1 Active 240128037 Problem Tachycardia R00.0 Active 8975696 Problem Dental examination Z01.20 Active 467992585 Problem Diverticulosis of small intestine (without mention of hemorrhage) 562.00 Active 9723663 Problem 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 290318812 Problem Rash and other nonspecific skin eruption 782.1 Active 530716556 Problem Excessive and frequent menstruation with irregular cycle N92.1 Active 405889139 Problem Family history of diabetes mellitus Z83.3 Active 131582856 Problem Abnormal uterine bleeding (AUB) N93.9 Active 70502544649541 Problem Mitral valve prolapse I34.1 Active 940727716 Problem Unspecified gastritis and gastroduodenitis without mention of hemorrhage 535.50 Active 219364307 Problem Unspecified otalgia 388.70 Active 19672874 Problem Esophageal reflux 530.81 Active 784432329 Problem Unspecified vaginitis and vulvovaginitis 616.10 Active 719829217 Problem Hypertension I10 Active 87486698 Problem History of diverticulitis Z87.19 Active 498058821949019 Problem Other and unspecified hyperlipidemia 272.4 Active 19782538 Problem Dermatophytosis of nail 110.1 Active 064865436 ALLERGIES Substance Reaction Event Type Date Status Sulfamethoxazole-Trimethoprim Unknown Drug Allergy Sep, Active Erythromycin rash Drug Allergy Sep, Active Hydrocodone dizziness Non Drug Allergy Sep, Active SOCIAL HISTORY Never Assessed PLAN OF CARE Activity Details Follow Up 4 Months Reason:periodontal maintenance. VITAL SIGNS Blood pressure systolic 122 mmHg 2016-10-14 Blood pressure diastolic 80 mmHg 2016-10-14 MEDICATIONS Medication Instructions Dosage Frequency Start Date End Date Duration Status Clorazepate Dipotassium 7.5 MG TAKE ONE TABLET BY MOUTH TWICE DAILY. ALSO MAY TAKE ONE OR TWO TABLETS IN THE AFTERNOON NEEDED FOR ANXIETY 6h Active InnoPran XL 120 MG Orally Once a day 1 capsule at bedtime 24h 30 Active Hyoscyamine Sulfate 0.125 MG TAKE ONE TABLET BY MOUTH FOUR TIMES DAILY NEEDED 8 Active Eiwibzlyal-RSKW-Lulsrbyd 50-325-40 MG Orally and then 1 capsule every 4 hrs PRN not to exceed 6 capsules in 24 hrs 2 capsules at onset of headache Feb, Active Cipro 500 mg 1 tablet by Oral route every 12 hours for 10 day(s) Nov Active InnoPran XL 80 MG Orally Once a day 1 capsule at bedtime 24h May, 30 day(s) Active Diflucan 150 MG Orally Once a day 1 tablet now and in 3 days if needed 24h Sep, 1 dose Active Propranolol HCl ER Beads 80 MG Orally Once a day. Take with 120mg Tablet 1 capsule at bedtime Apr, 30 days Active Hydrochlorothiazide 12.5 MG TAKE ONE TO TWO CAPSULES BY MOUTH ONCE DAILY NEEDED FOR SWELLING Active Zofran 4 MG Orally every 8 hours, PRN 1 tablets Apr, 30 days Active Hyoscyamine Sulfate 0.125 mg 1 tablet by Oral route 4 times per day PRN Jul, Active Flonase 50 mcg/actuation 2 Nasal [place] by Nasal route 1 time per day May, Active Propranolol HCl 20 mg Orally Once a day as needed for arrhythmia 1 tablet Sep, 30 day(s) Active Hydrochlorothiazide 12.5 mg 1-2 capsule by Oral route 1 time per day PRN swelling Jan, Active RESULTS No Results PROCEDURES Procedure Date Ordered Result Body Site Periodontal maint procedures Oct 14, 2016 IMMUNIZATIONS No Known Immunizations [...]
--- OUTSIDE RECORDS SUMMARY | 2017-08-02 00:46 | XMS REPORT ---
Author Author LETTY WILKINS [facility] Address [address] [place] [address] Care Team Providers Care Paste Up Artist Apprentice Name Role Phone LETTY WILKINS Unavailable PROBLEMS Type Condition ICD9-CM Code GYI69-AK Code Onset Dates Condition Status SNOMED Code Problem Generalized anxiety disorder F41.1 Active 990305155 Problem Screening for malignant neoplasm of the cervix V76.2 Active 874211168 Problem Family history of diabetes mellitus V18.0 Active 325723253 Problem Need for prophylactic vaccination and inoculation, Influenza V04.81 Active 911985173 Problem Abdominal pain, unspecified site 789.00 Active 82068132 Problem History of colon polyps Z86.010 Active 624408693 Problem Dysphagia, unspecified 787.20 Active 91381205 Problem Dense breast tissue R92.2 Active 925186525 Problem Chest pain, unspecified 786.50 Active 82632682 Problem History of ovarian cyst Z87.42 Active 38346788 Problem Perimenopausal N95.1 Active 261443079880663 Problem Hot flashes N95.1 Active 387103866 Problem Tachycardia R00.0 Active 3891787 Problem Dental examination Z01.20 Active 963892537 Problem Diverticulosis of small intestine (without mention of hemorrhage) 562.00 Active 4515077 Problem 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 380282166 Problem Rash and other nonspecific skin eruption 782.1 Active 969816543 Problem Excessive and frequent menstruation with irregular cycle N92.1 Active 518871784 Problem Family history of diabetes mellitus Z83.3 Active 221623223 Problem Abnormal uterine bleeding (AUB) N93.9 Active 79560141119747 Problem Mitral valve prolapse I34.1 Active 397863344 Problem Unspecified gastritis and gastroduodenitis without mention of hemorrhage 535.50 Active 817442810 Problem Unspecified otalgia 388.70 Active 84998094 Problem Esophageal reflux 530.81 Active 310441298 Problem Unspecified vaginitis and vulvovaginitis 616.10 Active 786405698 Problem Hypertension I10 Active 90826835 Problem History of diverticulitis Z87.19 Active 690684992128785 Problem Other and unspecified hyperlipidemia 272.4 Active 55882016 Problem Dermatophytosis of nail 110.1 Active 919449540 ALLERGIES Substance Reaction Event Type Date Status Sulfamethoxazole-Trimethoprim Unknown Drug Allergy Sep, Active Erythromycin rash Drug Allergy Sep, Active Hydrocodone dizziness Non Drug Allergy Sep, Active SOCIAL HISTORY Never Assessed PLAN OF CARE Activity Details Follow Up 6 Months Reason:BP VITAL SIGNS Height 66 in 2016-09-30 Weight 164.0 lbs 2016-09-30 Temperature 98.0 degrees Fahrenheit 2016-09-30 Heart Rate 72 bpm 2016-09-30 Respiratory Rate 18 2016-09-30 BMI 26.47 kg/m2 2016-09-30 Blood pressure systolic 118 mmHg 2016-09-30 Blood pressure diastolic 78 mmHg 2016-09-30 MEDICATIONS Medication Instructions Dosage Frequency Start Date End Date Duration Status Flonase 50 mcg/actuation 2 Nasal [place] by Nasal route 1 time per day May, Active Propranolol HCl ER Beads 80 MG Orally Once a day. Take with 120mg Tablet 1 capsule at bedtime Apr, 30 days Active Zofran 4 MG Orally every 8 hours, PRN 1 tablets Apr, 30 days Active Propranolol HCl 20 mg Orally Once a day as needed for arrhythmia 1 tablet Sep, 30 day(s) Active Hydrochlorothiazide 12.5 MG TAKE ONE TO TWO CAPSULES BY MOUTH ONCE DAILY NEEDED FOR SWELLING Active InnoPran XL 120 MG Orally Once a day PT NEEDS AN APPT FOR FURTHER REFILLS 1 capsule at bedtime Active Cipro 500 mg 1 tablet by Oral route every 12 hours for 10 day(s) Nov Active InnoPran XL 120 MG Orally Once a day 1 capsule at bedtime 24h 30 Active InnoPran XL 80 MG Orally Once a day 1 capsule at bedtime 24h May, 30 day(s) Active Hydrochlorothiazide 12.5 mg 1-2 capsule by Oral route 1 time per day PRN swelling Jan, Active Diflucan 150 MG Orally Once a day 1 tablet now and in 3 days if needed 24h Sep, 1 dose Active InnoPran XL 120 MG Orally Once a day 1 capsule at bedtime 24h Nov, 90 day(s) Active Nvhtycdxaz-BBGO-Vfxrrftp 50-325-40 MG Orally and then 1 capsule every 4 hrs PRN not to exceed 6 capsules in 24 hrs 2 capsules at onset of headache Feb, Active Clorazepate Dipotassium 7.5 MG TAKE ONE TABLET BY MOUTH TWICE DAILY. ALSO MAY TAKE ONE OR TWO TABLETS IN THE AFTERNOON NEEDED FOR ANXIETY 6h Active Hyoscyamine Sulfate 0.125 mg 1 tablet by Oral route 4 times per day PRN Jul, Active Hyoscyamine Sulfate 0.125 MG TAKE ONE TABLET BY MOUTH FOUR TIMES DAILY NEEDED 8 Active InnoPran XL 120 MG Orally Once a day. Take with 80mg Capsule 1 capsule at bedtime Active RESULTS Name Result Date Reference Range LIPID PANEL 2016-09-30 Cholesterol, Total 200 100-199 Triglycerides 74 0-149 HDL Cholesterol 50 >39 VLDL Cholesterol Wilbert 15 5-40 LDL Cholesterol Calc 135 0-99 Comment: CMP 2016-09-30 Glucose, Serum 104 65-99 BUN 14 6-24 Creatinine, Serum 0.74 0.57-1.00 eGFR If NonAfricn Am 95 >59 eGFR If Africn Am 109 >59 BUN/Creatinine Ratio 19 9-23 Sodium, Serum 140 134-144 Potassium, Serum 4.9 3.5-5.2 Chloride, Serum 101 96-106 Carbon Dioxide, Total 23 18-29 Calcium, Serum 9.5 8.7-10.2 Protein, Total, Serum 6.9 6.0-8.5 Albumin, Serum 4.4 3.5-5.5 Globulin, Total 2.5 1.5-4.5 A/G Ratio 1.8 1.1-2.5 Bilirubin, Total 0.3 0.0-1.2 Alkaline Phosphatase, S 77 39-117 AST (SGOT) 11 0-40 ALT (SGPT) 8 0-32 Ultrasound : Pelvic, Follow-up (NON-OB) 2016-10-09 PROCEDURES Procedure Date Ordered Result Body Site [facility] Sep 30, 2016 VENIPUNCT, ROUTINE* Sep 30, 2016 IMMUNIZATIONS No Known Immunizations MEDICAL (GENERAL) HISTORY Type Description Date Medical History Hypertension Medical History Diverticulitis Medical History Tachycardia Medical History Headaches Surgical History Right tendonectomy of bicep and clean up of rotator cuff 2014 Surgical History new tubes in ears 11/04/2016 Surgical History 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
--- OUTSIDE RECORDS SUMMARY | 2017-08-02 00:47 | XMS REPORT ---
Author Author LETTY WILKINS [facility] Address [address] [place] [address] Care Team Providers Care Soldering Machine Feeder Name Role Phone LETTY WILKINS Unavailable PROBLEMS Type Condition ICD9-CM Code DED36-LL Code Onset Dates Condition Status SNOMED Code Problem Generalized anxiety disorder F41.1 Active 278316768 Problem Diverticulosis of small intestine (without mention of hemorrhage) 562.00 Active 2684756 Problem Esophageal reflux 530.81 Active 277993230 Problem Unspecified gastritis and gastroduodenitis without mention of hemorrhage 535.50 Active 632906532 Problem Dysphagia, unspecified 787.20 Active 89362982 Problem Dense breast tissue R92.2 Active 295506038 Problem Unspecified vaginitis and vulvovaginitis 616.10 Active 410437235 Problem History of ovarian cyst Z87.42 Active 64585159 Problem Family history of diabetes mellitus V18.0 Active 521606832 Problem Perimenopausal N95.1 Active 907452088181719 Problem Hot flashes N95.1 Active 421714626 Problem Excessive and frequent menstruation with irregular cycle N92.1 Active 012733864 Problem Tachycardia R00.0 Active 9718911 Problem Dental examination Z01.20 Active 160943151 Problem 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 372877789 Problem Dermatophytosis of nail 110.1 Active 854776692 Problem Screening for malignant neoplasm of the cervix V76.2 Active 024597654 Problem Family history of diabetes mellitus Z83.3 Active 402138447 Problem History of diverticulitis Z87.19 Active 974491415154463 Problem Abnormal uterine bleeding (AUB) N93.9 Active 15544663190403 Problem Mitral valve prolapse I34.1 Active 609531529 Problem Need for prophylactic vaccination and inoculation, Influenza V04.81 Active 798962685 Problem Abdominal pain, unspecified site 789.00 Active 00428852 Problem Rash and other nonspecific skin eruption 782.1 Active 927110564 Problem Unspecified otalgia 388.70 Active 89815492 Problem Hypertension I10 Active 23687619 Problem History of colon polyps Z86.010 Active 624061987 Problem Other and unspecified hyperlipidemia 272.4 Active 12262087 Problem Chest pain, unspecified 786.50 Active 41706823 ALLERGIES Unknown Allergies SOCIAL HISTORY No smoking Hx information available PLAN OF CARE VITAL SIGNS MEDICATIONS Medication Instructions Dosage Frequency Start Date End Date Duration Status Propranolol HCl ER Beads 80 MG Orally Once a day. Take with 120mg Tablet 1 capsule at bedtime Apr, 30 days Active RESULTS No Results PROCEDURES No Known procedures IMMUNIZATIONS No Known Immunizations
--- OUTSIDE RECORDS SUMMARY | 2017-08-02 00:48 | XMS REPORT ---
Author Author KVNG MERCHANT Organization [facility] Address [address] [place] [address] Care Team Providers Care Java Software Developer Name Role Phone KVNG MERCHANT Unavailable PROBLEMS Type Condition ICD9-CM Code [id number] Code Onset Dates Condition Status SNOMED Code Problem Family history of diabetes mellitus Z83.3 Active 316860907 Problem Hot flashes N95.1 Active 410582780 Problem Excessive and frequent menstruation with irregular cycle N92.1 Active 452179500 Problem Gastroesophageal reflux disease with esophagitis K21.0 Active 933920232 Problem Tachycardia R00.0 Active 4231425 Problem Mitral valve prolapse I34.1 Active 116730354 Problem Perimenopausal N95.1 Active 716926622978345 Problem Dental examination Z01.20 Active 820683081 Problem Abnormal uterine bleeding (AUB) N93.9 Active 20269381397551 Problem History of diverticulitis Z87.19 Active 574142483789643 Problem History of colon polyps Z86.010 Active 814365969 Problem Generalized anxiety disorder F41.1 Active 485165254 Problem Dense breast tissue R92.2 Active 281785146 Problem Hypertension I10 Active 94816761 Problem History of ovarian cyst Z87.42 Active 31041827 ALLERGIES No Information SOCIAL HISTORY Never Assessed PLAN OF CARE Activity Details Follow Up 4 Weeks Reason: Follow-up VITAL SIGNS MEDICATIONS Unknown Medications RESULTS No Results PROCEDURES Procedure Date Ordered Result Body Site Psychotherapy, patient &/family, 45 minutes, established patient November 12, 2016 IMMUNIZATIONS No Known Immunizations MEDICAL (GENERAL) [...]
[2017-08-02] MEDS ORDERED: MELO7.5T46 (00:53)
[2017-08-02] MEDS ORDERED: OMEP20CA12 (00:53)
[2017-08-02] MEDS ORDERED: FLUT16SP22 (00:53)
[2017-08-02 01:07] LABS: BILIRUBIN,URINE NEGATIVE (NEGATIVE); KETONES,URINE NEGATIVE (NEGATIVE); LEUKOCYTE ESTERASE ,URINE NEGATIVE (NEGATIVE); NITRITE,URINE NEGATIVE (NEGATIVE); PH,URINE 7 (5-9); PROTEIN,URINE NEGATIVE (NEGATIVE); UROBILINOGEN,URINE NORMAL (NORMAL)
[2017-08-02 01:14] LABS: WBC,URINE RARE /HPF
[2017-08-02] MEDS ORDERED: KETOROLAC 30 MG/ML VIAL IVP STA (01:16)
[2017-08-02 01:36] LABS: BASOPHILS % (AUTO) 0 % (0-10); EOSINOPHILS # (AUTO) 0.2 10^3/uL (0.0-0.3); EOSINOPHILS % (AUTO) 2 % (0-10); LYMPHOCYTES # (AUTO) 3.1 X 10^3 (1.0-4.0); LYMPHOCYTES % (AUTO) 24 % (12-44); MEAN CORPUSCULAR HEMOGLOBIN 31 PG (25-34); MEAN CORPUSCULAR HGB CONC 34 G/DL (32-36); MEAN CORPUSCULAR VOLUME 92 FL (80-99); MEAN PLATELET VOLUME 9.7 FL (7.4-10.4); MONOCYTES # (AUTO) 0.9 X 10^3 (0.0-1.0); MONOCYTES % (AUTO) 7 % (0-12); NEUTROPHILS # (AUTO) 8.8 X 10^3 (1.8-7.8); NEUTROPHILS % (AUTO) 67 % (42-75); PLATELET COUNT 276 10^3/uL (130-400); RED BLOOD COUNT 4.03 10^6/uL (4.35-5.85); RED CELL DISTRIBUTION WIDTH 12.7 % (10.0-14.5)
[2017-08-02 01:56] LABS: ALANINE AMINOTRANSFERASE 8 U/L (0-55); ALBUMIN 3.7 GM/DL (3.2-4.5); AMYLASE 49 U/L (25-125); ANION GAP 9 MMOL/L (5-14); ASPARTATE AMINO TRANSFERASE 12 U/L (5-34); BILIRUBIN,TOTAL 0.2 MG/DL (0.1-1.0); BLOOD UREA NITROGEN 18 MG/DL (7-18); BUN/CREATININE RATIO 23; CALCIUM 8.9 MG/DL (8.5-10.1); CARBON DIOXIDE 26 MMOL/L (21-32); CHLORIDE 104 MMOL/L (98-107); CREATININE SERUM 0.77 MG/DL (0.60-1.30); GFR ESTIMATED > 60; GLUCOSE 111 MG/DL (70-105); LIPASE 9 U/L (8-78); POTASSIUM 3.7 MMOL/L (3.6-5.0); SODIUM 139 MMOL/L (135-145); TOTAL PROTEIN 6.9 GM/DL (6.4-8.2)
[2017-08-02] MEDS ORDERED: IOHEXOL 350 MG/ML 100 ML (OMNIPAQUE 350) VIAL IV ONE (02:30)
[2017-08-02] MEDS ORDERED: NS 100 ML (IVPB) BAG IV ONE (02:30)
[2017-08-02] MEDS ORDERED: RX-TRAMADOL 50 MG (ULTRAM) TAB PPK#4 PO STA (03:29)
[2017-08-02] MEDS ORDERED: fentaNYL INJECTION 100 MCG/2 ML AMP IVP STA (03:29)
[2017-08-02] MEDS ORDERED: LEVOFLOXACIN 500 MG TAB (LEVAQUIN) PO ONE (03:30)
[2017-08-02] MEDS ORDERED: metroNIDAZOLE 500MG/100ML IVPB 100 ML IV ONE (03:30)
[2017-08-02] MEDS ORDERED: CIPR-225 PO (03:51)
[2017-08-02] MEDS ORDERED: METR500T PO (03:51)
[2017-08-02] MEDS ORDERED: TRAM-42 PO (03:51)
[2017-08-02] MEDS ORDERED: LACT1CAP8 PO (03:51)
[2017-08-02] MEDS ORDERED: ONDA4TAB8 PO (03:51)
--- NOTE | 2017-08-02 03:51 | ED Abdominal Pain ---
General Chief Complaint: -Female Stated Complaint: LOWER LEFT SIDE PAIN Nursing Triage Note: LEFT LOWER SIDE PAIN X2 WEEKS Sepsis Screen: No Definite Risk Allergies and Home Medications Allergies Coded Allergies: hydrocodone (Verified Allergy, Mild, VOMITING, 12/13/16) Sulfa (Sulfonamide Antibiotics) (Verified Allergy, Unknown, ANAPHYLAXIS, ) erythromycin base (Verified Allergy, Unknown, 12/13/16) Home Medications Clorazepate Dipotassium 7.5 Mg Tablet, 7.5 MG PO TID, (Reported) Fluticasone Propionate 16 Gm [place].susp, (Reported) Meloxicam 7.5 Mg Tablet, (Reported) Omeprazole 20 Mg Capsule.dr, (Reported) Propranolol Hcl 120 Mg Cap.sr.24h, 200 MG PO DAILY, (Reported) Past Xpmlswn-Jlzthi-Rlerws Hx Patient Social History Alcohol Use: Denies Use Recreational Drug Use: No Smoking Status: Current Everyday Smoker Type Used: Cigarettes 2nd Hand Smoke Exposure: Yes Recent Foreign Travel: No Contact w/Someone Who Travel: No Recent Infectious Disease Expo: No Recent Hopitalizations: No Immunizations Up To Date Tetanus Booster (TDap): More than 5yrs Date of Pneumonia Vaccine: Sep 19, 2010 Date of Influenza Vaccine: Jun 03, 2016 Seasonal Allergies Seasonal Allergies: Yes Surgeries History of Surgeries: Yes (2001 TUBAL PREGNACY,1988 LAP EXP FOR ENDOMETREOSIS, D&C, R SHOULDER SCOPE) Surgeries: Gallbladder Respiratory History of Respiratory Disorde: No Cardiovascular History of Cardiac Disorders: Yes (mild mitral valve prolapse) Neurological History of Neurological Disord: Yes (TAKES CHLORAZPAETE FOR SEIZURES-LAST SEIZURE 12/09) Neurological Disorders: Seizure Disorder Reproductive System : No Hx Reproductive Disorders: Yes (AUB, MENORRHAGIA) Sexually Transmitted Disease: No HIV/AIDS: No Female Reproductive Disorders: Endometriosis, Ovarian Cyst Genitourinary History of Genitourinary Disor: Yes Genitourinary Disorders: UTI-Chronic Gastrointestinal History of Gastrointestinal Di: Yes Gastrointestinal Disorders: Gastroesophageal Reflux, Diverticulosis, Polyps, Irritable Bowel Musculoskeletal History of Musculoskeletal Dis: No Endocrine History of Endocrine Disorders: No HEENT History of HEENT Disorders: No Loss of Vision: Bilateral Hearing Impairment: Denies Cancer History of Cancer: No Psychosocial History of Psychiatric Problem: Yes (SEIZURES ARE FROM ANXIETY ) Behavioral Health Disorders: Anxiety Integumentary History of Skin or Integumenta: No Blood Transfusions History of Blood Disorders: No Adverse Reaction to a Blood Tr: No Family Medical History Significant Family History: No Pertinent Family Hx Physical Exam Vital Signs VS - Last 72 Hours, by Label 08/02/17 08/02/17 00:53 01:30 Temp 98.0 98.0 Pulse 75 Resp 16 B/P (MAP) 139/93 (108) Pulse Ox 98 O2 Delivery Room Air Capillary Refill : Less Than 3 Seconds Progress/Results/Core Measures Results/Orders Lab Results Laboratory Tests Test 08/02/17 00:50 08/02/17 01:30 Range/Units Urine Color YELLOW Urine Clarity CLEAR Urine pH 7 5-9 Urine Specific [place] 1.010 L 1.016-1.022 Urine Protein NEGATIVE NEGATIVE Urine Glucose (UA) NEGATIVE NEGATIVE Urine Ketones NEGATIVE NEGATIVE Urine Nitrite NEGATIVE NEGATIVE Urine Bilirubin NEGATIVE NEGATIVE Urine Urobilinogen NORMAL NORMAL MG/DL Urine Leukocyte Esterase NEGATIVE NEGATIVE Urine RBC (Auto) NEGATIVE NEGATIVE Urine RBC NONE /HPF Urine WBC RARE /HPF Urine Squamous Epithelial Cells 10-25 H /HPF Urine Crystals NONE /LPF Urine Bacteria FEW H /HPF Urine Casts NONE /LPF Urine Mucus NEGATIVE /LPF Urine Culture Indicated YES White Blood Count 13.0 H 4.3-11.0 10^3/uL Red Blood Count 4.03 L 4.35-5.85 10^6/uL Hemoglobin 12.6 11.5-16.0 G/DL Hematocrit 37 35-52 % Mean Corpuscular Volume 92 80-99 FL Mean Corpuscular Hemoglobin 31 25-34 PG Mean Corpuscular Hemoglobin Concent 34 32-36 G/DL Red Cell Distribution Width 12.7 10.0-14.5 % Platelet Count 276 130-400 10^3/uL Mean Platelet Volume 9.7 7.4-10.4 FL Neutrophils (%) (Auto) 67 42-75 % Lymphocytes (%) (Auto) 24 12-44 % Monocytes (%) (Auto) 7 0-12 % Eosinophils (%) (Auto) 2 0-10 % Basophils (%) (Auto) 0 0-10 % Neutrophils # (Auto) 8.8 H 1.8-7.8 X 10^3 Lymphocytes # (Auto) 3.1 1.0-4.0 X 10^3 Monocytes # (Auto) 0.9 0.0-1.0 X 10^3 Eosinophils # (Auto) 0.2 0.0-0.3 10^3/uL Basophils # (Auto) 0.0 0.0-0.1 10^3/uL Sodium Level 139 135-145 MMOL/L Potassium Level 3.7 3.6-5.0 MMOL/L Chloride Level 104 98-107 MMOL/L Carbon Dioxide Level 26 21-32 MMOL/L Anion Gap 9 5-14 MMOL/L Blood Urea Nitrogen 18 7-18 MG/DL Creatinine 0.77 0.60-1.30 MG/DL Estimat Glomerular Filtration Rate > 60 BUN/Creatinine Ratio 23 Glucose Level 111 H 70-105 MG/DL Calcium Level 8.9 8.5-10.1 MG/DL Total Bilirubin 0.2 0.1-1.0 MG/DL Aspartate Amino Transf (AST/SGOT) 12 5-34 U/L Alanine Aminotransferase (ALT/SGPT) 8 0-55 U/L Alkaline Phosphatase 86 40-136 U/L Total Protein 6.9 6.4-8.2 GM/DL Albumin 3.7 3.2-4.5 GM/DL Amylase Level 49 25-125 U/L Lipase 9 8-78 U/L My Orders Orders - RAVINDERJOSUÉA K DO Ua Culture If Indicated (08/02/17 00:52) Urine Culture (08/02/17 00:50) Saline Lock/Iv-Start (08/02/17 01:16) Ct Abd/Pelv W (Appendicitis) (08/02/17 01:16) Amylase (08/02/17 01:16) Cbc With Automated Diff (08/02/17 01:16) Comprehensive Metabolic Panel (08/02/17 01:16) Lipase (08/02/17 01:16) Acute Abd Series (08/02/17 01:16) Ketorolac Injection (Toradol Injection) (08/02/17 01:16) Iohexol Injection (Omnipaque 350 Mg/Ml 1 (08/02/17 02:30) Ns (Ivpb) (Sodium Chloride 0.9% Ivpb Bag (08/02/17 02:30) Metronidazole 500mg/100ml Ivpb (Flagyl 5 (08/02/17 03:30) Levofloxacin Tablet (Levaquin Tablet) (08/02/17 03:30) Fentanyl Injection (Sublimaze Injection (08/02/17 03:29) Rx-Tramadol Hcl (Rx-Ultram) (08/02/17 03:29) Medications Given in ED Current Medications Medications Dose Ordered Sig/Cherry Route Start Time Stop Time Status Last Admin Dose Admin Iohexol 100 ml ONCE ONCE IV 08/02/17 02:30 08/02/17 02:31 DC 08/02/17 02:22 100 ML Sodium Chloride 100 ml ONCE ONCE IV 08/02/17 02:30 08/02/17 02:31 DC 08/02/17 02:22 80 ML Vital Signs/I&O Vital Sign - Last 12Hours 08/02/17 08/02/17 00:53 01:30 Temp 98.0 98.0 Pulse 75 Resp 16 B/P (MAP) 139/93 (108) Pulse Ox 98 O2 Delivery Room Air Blood Pressure Mean: 108 Departure Impression Impression: Primary Impression: Diverticulitis Disposition: HOME, SELF-CARE Condition: Stable Departure-Patient Inst. Referrals: [facility] (PCP/Family) Primary Care Physician Patient Instructions: Diverticulitis (DC) Add. Discharge Instructions: CLEAR LIQUIDS--WATER, BROTH, JELLO, GATORADE NO FOOD UNTIL YOU ARE RECHECKED AND CLEARED BY FOLLOW UP WITH [facility] ON FRIDAY FOR FURTHER CARE RETURN TO ER IF WORSE All discharge instructions reviewed with patient and/or family. Voiced understanding. Scripts Ondansetron (Zofran Odt) 4 Mg Tab.rapdis 4 MG PO Q4H for Nausea/Vomiting, #15 TAB Prov: RAVINDER,BRANDY K DO 08/02/17 Tramadol HCl (Ultram) 50 Mg Tablet 50 MG PO Q4H, #20 TAB Prov: RAVINDER,BRANDY K DO 08/02/17 Metronidazole (Flagyl) 500 Mg Tablet 500 MG PO QID for FOR INFECTION, #40 TAB Prov: RAVINDER,BRANDY K DO 08/02/17 Ciprofloxacin HCl (Cipro) 500 Mg Tablet 500 MG PO BID, #20 TAB Prov: RAVINDER,BRANDY K DO 08/02/17 Lactobacillus Acidophilus (Acidophilus) 1 Each Capsule 2 EACH PO QID, #80 CAP Prov: RAVINDER,BRANDY K DO 08/02/17 RAVINDER,BRANDY K DO Aug 02, 2017 03:51
[2017-08-02 04:19] VITALS: BP 96/66
--- NOTE | 2017-08-02 07:13 | Diagnostic Imaging Report ---
INDICATION: Left lower quadrant pain. FINDINGS: The lungs are clear. There is no free air under the diaphragm. Upright and supine abdomen show no air-fluid levels. There is moderate amount of stool throughout the colon without evidence of significant constipation or obstruction. Surgical clips in the biliary fossa. No pathologic calcifications or organomegaly. IMPRESSION: Normal abdomen series. Dictated by: Dictated on workstation # [id number]
--- NOTE | 2017-08-02 07:17 | Diagnostic Imaging Report ---
PROCEDURE: CT abdomen and pelvis with contrast, rule out appendicitis. TECHNIQUE: Multiple contiguous axial images were obtained through the abdomen and pelvis after the administration of intravenous contrast. INDICATION: Left lower quadrant pain x2 weeks. History of cholecystectomy and right oophorectomy. Comparison with 12/13/2016. FINDINGS: There is diffuse thickening of the sigmoid colon bowel wall with adjacent mesenteric edema and multiple diverticuli consistent with acute diverticulitis. There is no evidence of abscess. No free air is seen. No free fluid. The right adnexal mass has been removed since previous exam. Uterus appears normal. Bladder is normal. Lung bases are clear. Liver is normal. Gallbladder is absent. Bile ducts are normal. Pancreas and spleen are normal. There is a small fatty nodule in the right adrenal gland with calcification which is stable when compared with previous exam. Kidneys appear normal. Aorta and abdominal vessels enhance normally with contrast. There is atherosclerotic disease of the aorta without evidence of aneurysm. Stomach and small bowel are not distended. The appendix is visualized and normal. IMPRESSION: 1. Diverticulitis of the sigmoid colon without evidence of abscess, free air or free fluid. No evidence of bowel obstruction at this time. 2. Small adrenal mass on the right with calcification appearing benign and unchanged since previous study. These findings are concordant with the preliminary report. Dictated by: Dictated on workstation # [id number]
== END 2017-08-02 04:19 | disposition home or self-care (01) ==
LOC: EDUNIT# 00:36 → ER 00:39
DX: K57.92 Diverticulitis of intestine, part unspecified, without perforation or abscess without bleeding (principal); F41.9 Anxiety disorder, unspecified; K21.9 Gastro-esophageal reflux disease without esophagitis; G40.909 Epilepsy, unspecified, not intractable, without status epilepticus; F17.210 Nicotine dependence, cigarettes, uncomplicated; Z87.440 Personal history of urinary (tract) infections; Z87.42 Personal history of other diseases of the female genital tract
CPT/HCPCS: 36415; 74022; 74177; 80053; 81000; 82150; 83690; 85025; 87088; 99283

== ENCOUNTER 2019-01-11 14:58 | Outpatient (RCR) | payer MEDICAID ==
[~2019-01-11 14:58] MED LIST changes: +CIPR-225 PO; +FLUT16SP22; +LACT1CAP8 PO; +MELO7.5T46; +METR500T PO; +OMEP20CA13 PO; +ONDA4TAB8 PO; -SCOP1PAT TOP; +SCOP1PAT11 TOP; +TRAM-42 PO
[2019-01-11 15:35] LABS: ALANINE AMINOTRANSFERASE 15 U/L (0-55); ALBUMIN 4.1 GM/DL (3.2-4.5); ALKALINE PHOSPHATASE 102 U/L (40-136); BILIRUBIN,TOTAL 0.2 MG/DL (0.1-1.0); BUN/CREATININE RATIO 19; CARBON DIOXIDE 25 MMOL/L (21-32); CHLORIDE 103 MMOL/L (98-107); CREATININE SERUM 0.81 MG/DL (0.60-1.30); GFR ESTIMATED > 60; GLUCOSE 107 MG/DL (70-105); POTASSIUM 4.1 MMOL/L (3.6-5.0); SODIUM 140 MMOL/L (135-145); TOTAL PROTEIN 7.6 GM/DL (6.4-8.2)
[2019-02-02] MEDS ORDERED: ONDA4TAB11 PO (14:16)
[2019-02-02] MEDS ORDERED: HYDR25TA4 PO (14:16)
[2019-02-02] MEDS ORDERED: CLOR7.5T3 PO (14:16)
[2019-02-02] MEDS ORDERED: HYOS-19 SL (14:16)
[2019-02-02] MEDS ORDERED: PROP80TA3 PO (14:16)
[2019-02-02] MEDS ORDERED: PROP120C3 PO (14:16)
[2019-02-05] MEDS ORDERED: PANT40TA2 PO (09:59)
== END 2019-04-11 | disposition home or self-care (01) ==
LOC: LAB 14:58
PROVIDERS: ATTEND Surgery
DX: R10.32 Left lower quadrant pain (principal)
CPT/HCPCS: 36415; 80053; 82274; 87015; 87045; 87046; 87328; 87329; 87449; 87899

== ENCOUNTER 2019-01-22 20:24 | Emergency (ER) | payer MEDICAID ==
[~2019-01-22] VITALS: Ht 170.2 cm; Wt 78.9 kg
[~2019-01-22 20:24] MED LIST changes: +OMEP20CA12; -OMEP20CA13 PO
--- OUTSIDE RECORDS SUMMARY | 2019-01-22 20:30 | XMS REPORT ---
Author Author Migration, Doctor Organization [facility] Address Unknown Phone Unavailable Care Team Providers Care Nursing Home Manager Name Role Phone Migration, Doctor Unavailable Unavailable PROBLEMS Type Condition ICD9-CM Code LIG93-LL Code Onset Dates Condition Status SNOMED Code Problem Hypertension I10 Active 16364505 Problem Generalized anxiety disorder F41.1 Active 043334844 Problem History of colon polyps Z86.010 Active 432137302 Problem History of diverticulitis Z87.19 Active 872259746136710 Problem Family history of diabetes mellitus Z83.3 Active 555375383 Problem Excessive and frequent menstruation with irregular cycle N92.1 Active 333840219 Problem Hot flashes N95.1 Active 482135935 Problem Gastroesophageal reflux disease with esophagitis K21.0 Active 390412524 Problem History of ovarian cyst Z87.42 Active 60461328 Problem Diverticulitis K57.92 Active 526719527 Problem Dense breast tissue R92.2 Active 841235236 Problem Perimenopausal N95.1 Active 231941544273764 Problem Mitral valve prolapse I34.1 Active 280960430 Problem Abnormal uterine bleeding (AUB) N93.9 Active 15523339578092 Problem Tachycardia R00.0 Active 8126187 ALLERGIES No Information ENCOUNTERS Encounter Location Date Diagnosis [facility] [address] [address] Jan, [facility] [id number] [address] December, [facility] [id number] [place] [address] December, Diverticulitis K57.92 ; Dysuria R30.0 ; Other constipation K59.09 and Lower abdominal pain R10.30 [facility] [id number] [address] Nov, Diverticulitis K57.92 [facility] [address] [address] Nov, Generalized anxiety disorder F41.1 and Bereavement Z63.4 [facility] [address] [place] [address] Nov, Generalized anxiety disorder F41.1 and Bereavement Z63.4 [facility] [address] [place] [address] Nov, Diverticulitis K57.92 [facility] [id number] [place] [address] Oct, Diverticulitis K57.92 [facility] [address] [place] [address] Oct, Diverticulitis K57.92 [facility] [id number] [place] [address] Oct, Generalized anxiety disorder F41.1 [facility] [id number] [place] [address] Oct, Right lower quadrant abdominal pain R10.31 and Diverticulitis K57.92 [facility] [address] [place] [address] Sep, Generalized anxiety disorder F41.1 and Bereavement Z63.4 [facility] [address] [place] [address] Aug, [facility] [address] [place] [address] Aug, Generalized anxiety disorder F41.1 and Bereavement Z63.4 [facility] [address] [id number] [address] Aug, Caries K02.9 [facility] [address] [place] [address] Jul, Generalized anxiety disorder F41.1 and Bereavement Z63.4 [facility] [address] [place] [address] Jul, Other acute gastritis without hemorrhage K29.00 ; Generalized anxiety disorder F41.1 ; Tachycardia R00.0 and Essential hypertension I10 [facility] [id number] [place] [address] Jul, Generalized anxiety disorder F41.1 and Bereavement Z63.4 [facility] [id number] [place] [address] Jun, Generalized anxiety disorder F41.1 and Bereavement Z63.4 [facility] [id number] [place] [address] Jun, Generalized anxiety disorder F41.1 and Bereavement Z63.4 [facility] [address] [place] [address] Jun, Dental examination Z01.20 [facility] [id number] [place] [address] May, Generalized anxiety disorder F41.1 and Bereavement Z63.4 [facility] [id number] [place] [address] May, Encounter for immunization Z23 [facility] [id number] [place] [address] May, Generalized anxiety disorder F41.1 and Bereavement Z63.4 [facility] [id number] [place] [address] May, [facility] [id number] [place] [address] 24 Apr, 2018 Generalized anxiety disorder F41.1 and Bereavement Z63.4 [facility] [id number] [place] [address] 17 Apr, 2018 [facility] [id number] [place] [address] 13 Apr, 2018 Diverticulitis K57.92 [facility] [id number] [place] [address] Apr, Generalized anxiety disorder F41.1 and Bereavement Z63.4 [facility] [id number] [place] [address] Mar, [facility] [id number] [place] [address] Mar, Diverticulitis K57.92 [place] [address] [address] Mar, Generalized anxiety disorder F41.1 and Bereavement Z63.4 [facility] [id number] [place] [address] Mar, Hypertension I10 [place] [id number] [place] [address] Mar, Generalized anxiety disorder F41.1 and Bereavement Z63.4 [facility] [id number] [place] [address] Feb, Generalized anxiety disorder F41.1 and Bereavement Z63.4 [facility] [id number] [place] [address] Feb, [place] [id number] [place] [address] Feb, Generalized anxiety disorder F41.1 and Bereavement Z63.4 [place] [address] [address] Feb, Generalized anxiety disorder F41.1 and Bereavement Z63.4 [facility] [id number] [place] [address] Jan, Hypertension I10 and Acute non-recurrent maxillary sinusitis J01.00 [facility] [id number], [place] [address] December, [facility] [id number] [place] [address] December, Hypertension I10 [facility] [address] [place] [address] December, Generalized anxiety disorder F41.1 [facility] [id number] [place] [address] Oct, Encounter for dental examination Z01.20 [facility] [id number] [place] [address] Oct, Encounter for dental examination Z01.20 [facility] [id number] [place] [address] Oct, Dental examination Z01.20 [facility] [address] [place] [address] Oct, Generalized anxiety disorder F41.1 [facility] [id number] [place] [address] Aug, Dental examination Z01.20 [facility] [address] [place] [address] Aug, Generalized anxiety disorder F41.1 [facility] [id number] [place] [address] Aug, [facility] [address] [id number] [address] Aug, Encounter for dental examination Z01.20 [facility] [id number] [place] [address] Aug, Subacute maxillary sinusitis J01.00 [facility] [address] [id number] [address] Jul, Dental examination Z01.20 [facility] [id number] [address] Jul, Generalized anxiety disorder F41.1 [facility] [id number] [place] [address] Jul, Diverticulitis K57.92 [facility] [id number] [place] [address] Jun, Encounter for immunization Z23 [facility] [id number] [place] [address] Jun, Dental examination Z01.20 [facility] [id number] [place] [address] Jun, Generalized anxiety disorder F41.1 [facility] [id number] [place] [address] Jun, Dental examination Z01.20 [facility] [id number] [place] [address] May, [facility] [id number] [place] [id number] May, Dental examination Z01.20 [facility] [id number] [place] [id number] May, Dental examination Z01.20 [facility] [id number] [place] [address] May, Dental examination Z01.20 [facility] [address], [place] [address] May, [facility] [id number] [place] [address] May, Generalized anxiety disorder F41.1 [facility] [id number], [place] [address] 05 May, 2017 Localized edema R60.0 ; Yeast vaginitis B37.3 and Gastroesophageal reflux disease with esophagitis K21.0 [facility] [address] [id number] [id number] 26 Apr, 2017 Dental examination Z01.20 [facility] [address] [id number] [address] Apr, Dental examination Z01.20 [facility] [id number] [place] [address] 05 Apr, 2017 Dental examination Z01.20 [facility] [address] [id number] [place] [address] Mar, Dyspepsia R10.13 [facility] [address] [id number] [place] [address] Mar, Generalized anxiety disorder F41.1 [facility] [id number] [place] [address] Mar, Encounter for dental examination Z01.20 [facility] [id number] [place] [id number] Mar, [facility] [address] [id number] [place] [address] [id number] Mar, Dental examination Z01.20 [facility] [id number] [place] [address] Feb, Hypertension I10 and Tachycardia R00.0 [facility] [address] [id number] [address] Feb, [facility] [id number] [place] [address] Feb, Generalized anxiety disorder F41.1 [facility] [id number] [place] [address] [id number] Feb, Dental examination Z01.20 [facility] [address] [id number] [place] [address] Jan, Generalized anxiety disorder F41.1 [facility] [address] [place] [address] December, Generalized anxiety disorder F41.1 [facility] [id number] [place] [address] [phone] December, Encounter for dental examination Z01.20 [facility] [id number] [place] [address] Nov, [facility] [id number] [place] [address] Nov, [facility] [id number] [place] [address] Nov, Generalized anxiety disorder F41.1 [facility] [id number] [place] [address] Oct, [facility] [id number] [place] [address] [id number] Oct, Dental examination Z01.20 [facility] [id number] [place] [address] Oct, Vaginal dryness N89.8 [facility] [id number] [place] [address] Oct, Pseudoseizures F44.5 [facility] [id number] [place] [address] Oct, Generalized anxiety disorder F41.1 [facility] [id number] [place] [address] Sep, Abnormal uterine bleeding (AUB) N93.9 ; Vaginal dryness N89.8 and Screening breast examination Z12.39 [facility] [id number] [place] [address] Sep, Dental examination Z01.20 [facility] [id number] [place] [address] Sep, Generalized anxiety disorder F41.1 [facility] [address] [place] [address] 06 Sep, 2017 Unspecified ovarian cyst, right side N83.201 ; Unspecified ovarian cyst, left side N83.202 ; Yeast infection of the vagina B37.3 ; Mitral valve prolapse I34.1 and Hypertension I10 [facility] [id number] [place] [address] Aug, Generalized anxiety disorder F41.1 [facility] [id number] [place] [address] Jul, [facility] [address] [address] Jul, Generalized anxiety disorder F41.1 [facility] [id number] [place] [address] Jun, Generalized anxiety disorder F41.1 [facility] [address] [address] May, Encounter for immunization Z23 [facility] [address] [address] 17 May, 2016 Generalized anxiety disorder F41.1 and Depressive disorder, not elsewhere classified F32.9 [facility] [id number] [place] [address] 28 Apr, 2016 Hypertension I10 [facility] [id number] [place] [address] 22 Apr, 2016 Cervicalgia M54.2 [facility] [id number] [place] [address] 12 Apr, 2016 Cervicalgia M54.2 [facility] [id number] [place] [address] Mar, Generalized anxiety disorder F41.1 and Depressive disorder, not elsewhere classified F32.9 [facility] [id number] [place] [address] [id number] 14 Feb, 2016 Visit for dental examination Z01.20 [facility] [id number] [place] [address] 11 Feb, 2016 Pseudoseizures F44.5 ; Migraine without status migrainosus, not intractable, unspecified migraine type G43.909 and Essential hypertension I10 [facility] [address] [id number] 06 Feb, 2016 Dental examination Z01.20 [facility] [id number] [place] [address] 05 Feb, 2016 Generalized anxiety disorder F41.1 and Depressive disorder, not elsewhere classified F32.9 [facility] [id number] [place] [address] 27 Jan, 2016 Tachycardia R00.0 [place] [id number] [place] [address] December, Eustachian tube dysfunction, bilateral H69.83 [facility] [id number] [place] [address] December, Generalized anxiety disorder F41.1 and Depressive disorder, not elsewhere classified F32.9 [facility] [id number] [place] [address] Nov, [place] [address] [address] 28 Nov, 2015 [facility] [id number] [place] [address] Nov, Hypertension I10 ; Onychomycosis B35.1 ; Encounter for screening for malignant neoplasm of cervix Z12.4 ; Well woman exam Z01.419 ; Family history of diabetes mellitus Z83.3 ; Tobacco use Z72.0 ; History of diverticulitis Z87.19 ; Screening for malignant neoplasm of colon Z12.11 ; Screening for malignant neoplasm of breast Z12.39 ; Hot flashes N95.1 ; Excessive and frequent menstruation with irregular cycle N92.1 ; Perimenopausal N95.1 and Complex cyst of left ovary N83.29 [place] [id number] [place] [address] Nov, Sinusitis J32.9 [place] [address] [address] Oct, Complex cyst of left ovary N83.29 [place] [address] [address] Oct, Onychomycosis B35.1 [facility] [address] [id number] Oct, Dental examination Z01.20 [place] [address] [address] 09 Oct, 2015 Well woman exam Z01.419 ; Encounter for screening for malignant neoplasm of cervix Z12.4 ; Family history of diabetes mellitus Z83.3 ; Tobacco use Z72.0 ; History of diverticulitis Z87.19 ; Screening for malignant neoplasm of colon Z12.11 ; Screening for malignant neoplasm of breast Z12.39 ; Hot flashes N95.1 ; Excessive and frequent menstruation with irregular cycle N92.1 ; Perimenopausal N95.1 ; History of ovarian cyst Z87.42 ; Dense breast tissue R92.2 and History of colon polyps Z86.010 [place] [id number] [place] [address] Oct, Generalized anxiety disorder F41.1 and Depressive disorder, not elsewhere classified F32.9 [place] [id number] [place] [address] Sep, Hypertension I10 and Onychomycosis B35.1 [place] [address] [address] 16 Sep, 2015 Skin tags, multiple acquired L91.8 [place] [id number] [place] [address] Aug, [place] [id number] [place] [address] Aug, [facility] [id number] [place] [address] Aug, [facility] [id number] [place] [address] Aug, Generalized anxiety disorder F41.1 and Depressive disorder, not elsewhere classified F32.9 [facility] [id number] [place] [address] Jul, Skin lesion L98.9 [facility] [address] [address] Jun, Generalized anxiety disorder F41.1 and Depressive disorder, not elsewhere classified F32.9 [facility] [id number] [place] [address] Jun, [facility] [id number] [place] [address] Jun, Generalized anxiety disorder F41.1 [facility] [id number] [place] [address] May, Encounter for immunization Z23 and Right shoulder pain M25.511 [facility] [id number] [place] [address] Apr, [facility] [id number] [place] [address] 14 Apr, 2015 Generalized anxiety disorder 300.02 and Depressive disorder, not elsewhere classified [address] [facility] [id number] [place] [id number] Mar, Dental examination V72.2 [facility] [id number] [place] [phone] Mar, Generalized anxiety disorder 300.02 and Depressive disorder, not elsewhere classified 311 [facility] [id number] [place] [id number] Mar, Depression, major, recurrent, 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.35 and 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 [facility] [id number] [place] [phone] Feb, Generalized anxiety disorder 300.02 and Depressive disorder, not elsewhere classified [address] [facility] [id number] [id number] Feb, Dental examination V72.2 [facility] [id number] [place] [phone] Jan, Generalized anxiety disorder 300.02 and Depressive disorder, not elsewhere classified [address] [facility] [id number] [place] [phone] Jan, [facility] [id number] [place] [phone] December, Generalized anxiety disorder 300.02 and Depressive disorder, not elsewhere classified [address] [facility] [id number] [place] [phone] December, Major depressive disorder, recurrent, unspecified 296.30 and Panic disorder with agoraphobia 300.21 [facility] [id number] [address] Nov, [facility] [id number] [address] Nov, [facility] [id number] [place] [phone] Oct, [facility] [id number] [address] Oct, [facility] [id number] [place] [phone] Oct, [facility] [id number] [address] Oct, [facility] [id number] [address] Sep, 2014 [facility] [place] [facility] [id number] [address] Sep, 2014 [facility] [place] [facility] [address] [id number] [place] [address] Sep, 2014 [facility] [place] [facility] [address] [id number] [place] [address] Sep, 2014 [facility] [place] [facility] [address] [id number] [place] [address] Sep, 2014 [facility] [place] [facility] [address] [id number] [place] [address] Sep, 2014 [facility] [place] [facility] [address] [facility] [id number] [place] [address] Sep, 2014 [facility] [place] [facility] [address] [facility] [id number] [place] [address] Sep, 2014 [facility] [place] [facility] [address] [id number] [place] [address] Sep, 2014 [facility] [place] [facility] [address] [facility] [id number] [place] [address] Sep, 2014 [facility] [place] [facility] [address] [facility] [id number] [place] [address] Aug, [facility] [place] [facility] [address] [facility] [id number] [place] [address] Aug, [facility] [place] [facility] [address] [id number] [place] [address] Jul, [facility] [place] [facility] [address] [id number] [place] [address] Jul, [facility] [place] [facility] [address] [facility] [id number] [place] [address] Jul, [facility] [place] [facility] [address] [facility] [id number] [place] [address] Jul, [facility] [place] [facility] [address] [id number] [place] [address] Jul, [facility] [place] [facility] [address] [id number] [place] [address] Jul, [facility] [place] [facility] [address] [id number] [place] [address] Jul, [facility] [place] [facility] [address] [id number] [place] [address] Jul, [facility] [place] [facility] [address] [id number] [place] [address] Jul, [facility] [place] [facility] [address] [id number] [place] [address] Jul, [facility] [place] [facility] [address] [id number] [place] [address] Jul, [facility] [place] [facility] [address] [id number] [place] [address] Jul, [facility] [place] [facility] [address] [id number] [place] [address] Jun, [facility] [place] [facility] [address] [id number] [place] [address] Jun, [facility] [place] [facility] [address] [id number], [place] [address] May, [facility] [place] [facility] [address] [id number], [place] [address] May, [facility] [place] [facility] [address] [id number] [place] [address] May, [facility] [place] [facility] [address] [id number], [place] [address] May, [facility] [place] [facility] [address] [id number], [place] [address] May, [facility] [place] [facility] [address] [id number] [place] [address] May, 2013 [facility] [place] [facility] [address] [id number] [place] [address] May, 2013 [facility] [place] [facility] [address] [id number] [place] [address] May, 2013 [facility] [place] [facility] [address] [id number] [place] [address] May, 2013 [facility] [place] [facility] [address] [id number] [place] [address] May, 2013 [facility] [place] [facility] [address] [id number] [place] [address] May, [facility] [place] [facility] [address] [id number] [place] [address] May, [facility] [place] [facility] [address] [id number] [place] [address] 30 Apr, 2013 [facility] [place] [facility] [address] [id number] [place] [address] 30 Apr, 2013 [facility] [place] [facility] [address] [id number] [place] [address] 29 Apr, 2013 [facility] [place] [facility] [address] [id number] [place] [address] 29 Apr, 2013 [facility] [place] [facility] [address] [id number] [place] [address] Apr, 2013 [facility] [place] [facility] [address] [id number] [place] [address] Apr, 2013 [facility] [place] [facility] [address] [id number] [place] [address] Feb, [facility] [place] [facility] [address] [id number] [place] [address] Feb, [facility] [place] [facility] [address] [id number] [place] [address] Feb, [facility] [place] [facility] [address] [id number] [place] [address] Feb, [facility] [place] [facility] [address] [id number] [place] [address] Feb, [facility] [place] [facility] [address] [id number] [place] [address] Feb, [facility] [place] [facility] [address] [id number] [place] [address] Jan, [facility] [place] [facility] [address] [id number] [place] [address] Jan, [facility] [place] [facility] [address] [id number] [place] [address] Jan, [facility] [place] [facility] [address] [id number] [place] [address] Jan, [facility] [place] [facility] [address] [id number] [place] [address] Jan, [facility] [place] [facility] [address] [id number] [place] [address] Jan, [facility] [place] [facility] [address] [id number] [place] [address] Jan, [facility] [place] [facility] [address] [id number] [place] [address] Jan, [facility] [place] [facility] [address] [id number] [place] [address] December, [facility] [place] [facility] [address] [id number] [place] [address] December, [facility] [place] [facility] [address] [id number] [place] [address] December, [facility] [place] [facility] [address] [id number] [place] [address] December, [facility] [place] [facility] [address] [id number] [place] [address] Nov, [facility] [place] [facility] [address] [id number] [place] [address] Nov, [facility] [place] [facility] [address] [id number] [place] [address] Nov, [facility] [place] [facility] [address] [id number] [place] [address] Nov, [facility] [place] [facility] [address] [id number] [place] [address] Nov, [facility] [place] [facility] [address] [id number] [place] [address] Nov, [facility] [place] [facility] [address] [id number] [place] [address] Nov, [facility] [place] [facility] [address] [id number] [place] [address] Nov, [facility] [place] [facility] [address] [id number] [place] [address] Oct, [facility] [place] [facility] [address] [id number] [place] [address] Oct, [facility] [place] [facility] [address] [id number] [place] [address] Sep, [facility] [place] [facility] [address] [id number] [place] [address] Sep, [facility] [place] [facility] [address] [facility] [id number] [place] [address] Sep, [facility] [place] [facility] [address] [id number] [place] [address] Sep, [facility] [place] [facility] [address] [id number] [place] [address] Sep, [facility] [place] [facility] [address] [id number] [place] [address] Sep, [facility] [place] [facility] [address] [id number] [place] [address] Aug, [facility] [place] [facility] [address] [id number] [place] [address] Aug, [facility] [place] [facility] [address] [id number] [place] [address] Aug, [facility] [place] [facility] [address] [id number] [place] [address] Aug, [facility] [place] [facility] [address] [id number] [place] [address] Jul, [facility] [place] [facility] [address] [id number] [place] [address] Jul, [facility] [place] [facility] [address] [id number] [place] [address] Jul, [facility] [place] [facility] [address] [id number] [place] [address] Jul, [facility] [place] [facility] [address] [id number] [place] [address] Jun, [facility] [place] [facility] [address] [id number] [place] [address] Jun, [facility] [place] [facility] [address] [id number] [place] [address] May, [facility] [place] [facility] [address] [id number] [place] [address] 24 May, 2013 [facility] [place] [facility] [address] [id number] [place] [address] May, [facility] [place] [facility] [address] [id number] [place] [address] May, [facility] [place] [facility] [address] [id number] [place] [address] 10 May, 2013 [facility] [place] [facility] [address] [id number] [place] [address] Apr, [facility] [place] [facility] [address] [id number] [place] [address] Apr, [facility] [place] [facility] [address] [id number] [place] [address] Mar, [facility] [place] [facility] [address] [id number] [place] [address] Mar, [facility] [place] [facility] [address] [id number] [place] [address] Mar, [facility] [place] [facility] [address] [id number] [place] [address] Mar, [facility] [place] [facility] [address] [id number] [place] [address] Feb, [facility] [place] [facility] [address] [id number] [place] [address] Feb, [facility] [place] [facility] [address] [id number] [place] [address] Feb, [facility] [place] [facility] [address] [id number] [place] [address] Feb, [facility] [place] [facility] [address] [id number] [place] [address] Feb, [facility] [place] [facility] [address] [id number] [place] [address] Jan, [facility] [place] [facility] [address] [id number], [place] [address] Jan, [facility] [place] [facility] [address] [id number] [place] [address] Jan, [facility] [place] [facility] [address] [id number] [place] [address] Jan, [facility] [place] [facility] [address] [id number] [place] [address] Jan, [facility] [place] [facility] [address] [id number] [place] [address] 16 Dec, 2012 [facility] [address] [id number] [place] [address] December, [facility] [address] [id number] [place] [address] Nov, [facility] [address] [id number] [place] [address] Nov, [facility] [address] [id number] [place] [address] Oct, [facility] [address] [id number] [place] [address] Oct, [facility] [address] [id number] [place] [address] 05 Oct, 2012 [facility] [address] [id number] [place] [address] 14 Sep, 2012 [facility] [address] [id number] [place] [address] Aug, [facility] [address] [id number] [place] [address] Aug, [facility] [address] [id number] [place] [address] Aug, [facility] [address] [id number] [place] [address] Aug, [facility] [address] [id number] [place] [address] Jul, [facility] [address] [id number] [place] [address] Jul, [facility] [address] [id number] [place] [address] Jul, [facility] [address] [id number] [place] [address] Jul, [facility] [place] [facility] [address] [id number] [place] [address] Jul, [facility] [place] [facility] [address] [id number] [place] [address] Jul, [facility] [place] [facility] [address] [id number] [place] [address] Jul, [facility] [place] [facility] [address] [id number] [place] [address] Jul, [facility] [place] [facility] [address] [id number] [place] [address] Jun, [facility] [place] [facility] [address] [id number] [place] [address] Jun, [facility] [place] [facility] [address] [facility] [id number] [place] [address] Jun, [facility] [place] [facility] [address] [id number], [place] [address] Jun, [facility] [place] [facility] [address] [facility] [id number] [place] [address] Jun, [facility] [place] [facility] [address] [facility] [id number], [place] [address] Jun, [facility] [place] [facility] [address] [facility] [id number], [place] [address] May, [facility] [place] [facility] [address] [id number], [place] [address] May, [facility] [place] [facility] [address] [id number], [place] [address] May, [facility] [place] [facility] [address] [id number], [place] [address] May, [facility] [place] [facility] [address] [facility] [id number], [place] [address] Apr, [facility] [place] [facility] [address] [id number], [place] [address] 06 Apr, 2012 [facility] [place] [facility] [address] [id number] [place] [address] 08 Mar, 2012 [facility] [place] [facility] [address] [id number] [place] [address] 28 Jan, 2012 [facility] [place] [facility] [address] [id number] [place] [address] 20 Jan, 2012 [facility] [place] [facility] [address] [id number] [place] [address] 16 Jan, 2012 [facility] [place] [facility] [address] [id number] [place] [address] 15 Jan, 2012 [facility] [place] [facility] [address] [id number] [place] [address] 14 Jan, 2012 [facility] [place] [facility] [address] [id number] [place] [address] 14 Jan, 2012 [facility] [place] [facility] [address] [id number] [place] [address] 07 Jan, 2012 [facility] [place] [facility] [address] [id number] [place] [address] December, [facility] [place] [facility] [address] [id number] [place] [address] December, [facility] [place] [facility] [address] [id number] [place] [address] December, [facility] [place] [facility] [address] [id number] [place] [address] December, [facility] [place] [facility] [address] [id number] [place] [address] Nov, [facility] [place] [facility] [address] [id number] [place] [address] Nov, [facility] [place] [facility] [address] [id number] [place] [address] Oct, [facility] [place] [facility] [address] [id number] [place] [address] 28 Oct, 2011 [facility] [address] [id number] [place] [address] 15 Oct, 2011 [facility] [place] [facility] [address] [id number] [place] [address] 22 Sep, 2011 [facility] [place] [facility] [address] [id number] [place] [address] Sep, [facility] [place] [facility] [address] [id number] [place] [address] Sep, [facility] [place] [facility] [address] [id number] [place] [address] Aug, [facility] [address] [id number] [place] [address] Aug, [facility] [address] [id number] [place] [address] Aug, [facility] [address] [id number] [place] [address] Aug, [facility] [address] [id number] [place] [address] Aug, [facility] [address] [id number] [place] [address] Aug, [facility] [address] [id number] [place] [address] Aug, [facility] [place] [facility] [address] [id number] [place] [address] Jul, [facility] [place] [facility] [address] [id number] [place] [address] Jul, [facility] [place] [facility] [address] [id number] [place] [address] Jun, [facility] [place] [facility] [address] [id number] [place] [address] Jun, 2011 [facility] [place] [facility] [address] [id number] [place] [address] 17 Jun, 2011 [facility] [place] [facility] [address] [id number] [place] [address] 15 Jun, 2011 [facility] [place] [facility] [address] [id number] [place] [address] 14 Jun, 2011 [facility] [place] [facility] [address] [id number] [place] [address] 14 Jun, 2011 [facility] [place] [facility] [address] [id number] [place] [address] Jun, [facility] [place] [facility] [address] [id number] [place] [address] Jun, [facility] [place] [facility] [address] [id number] [place] [address] Jun, [facility] [place] [facility] [address] [id number], [place] [address] Jun, [facility] [place] [facility] [address] [id number] [place] [address] May, [facility] [place] [facility] [address] [id number] [place] [address] May, [facility] [place] [facility] [address] [id number], [place] [address] May, [facility] [place] [facility] [address] [id number], [place] [address] 24 May, 2011 [facility] [place] [facility] [address] [id number], [place] [address] 18 May, 2011 [facility] [place] [facility] [address] [id number], [place] [address] 13 May, 2011 [facility] [place] [facility] [address] [id number], [place] [address] Feb, [facility] [place] [facility] [id number], [place] [address] December, [facility] [id number], [place] [address] Jul, [facility] [address] [facility] [id number], [place] [address] Jul, [facility] [id number], [place] [address] Jul, [facility] [id number], [place] [address] Jul, [facility] [id number] [place] [id number] Jun, [facility] [id number] [address] Jul, [facility] [id number] [address] Jul, [facility] [id number] [place] [address] Jul, [facility] [id number] [place] [address] Jul, [facility] [id number] [place] [address] 17 Jul, 2009 [facility] [id number] [place] [address] Jul, [facility] [id number] [place] [address] 15 Jan, 2009 [facility] [address] [place] [address] 16 Sep, 2008 [facility] [id number] [place] [address] 11 Sep, 2008 IMMUNIZATIONS No Known Immunizations SOCIAL HISTORY Never Assessed REASON FOR VISIT EMR-[facility] [place] OF CARE VITAL SIGNS MEDICATIONS Unknown Medications RESULTS No Results PROCEDURES No Known procedures INSTRUCTIONS MEDICATIONS ADMINISTERED No Known Medications MEDICAL (GENERAL) HISTORY Type Description Date Medical History Hypertension Medical History Diverticulitis Medical History Tachycardia Medical History Headaches Medical History Cyst removed off finger removed part of the bone Surgical History Right tendonectomy of bicep and clean up of rotator cuff 05/2015 Surgical History new tubes in ears 11/04/2016 Surgical History 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
--- OUTSIDE RECORDS SUMMARY | 2019-01-22 20:31 | XMS REPORT ---
Author Author Migration, Doctor Organization [facility] Address Unknown Phone Unavailable Care Team Providers Care [employer] Specialist Name Role Phone Migration, Doctor Unavailable Unavailable PROBLEMS Type Condition ICD9-CM Code [id number] Code Onset Dates Condition Status SNOMED Code Problem Hypertension I10 Active 28371659 Problem Generalized anxiety disorder F41.1 Active 691525832 Problem Perimenopausal N95.1 Active 085678177602205 Problem Hot flashes N95.1 Active 528003474 Problem Dense breast tissue R92.2 Active 958341769 Problem History of ovarian cyst Z87.42 Active 24666244 Problem Family history of diabetes mellitus Z83.3 Active 211258289 Problem Gastroesophageal reflux disease with esophagitis K21.0 Active 880138623 Problem History of colon polyps Z86.010 Active 471383230 Problem Diverticulitis K57.92 Active 269702022 Problem History of diverticulitis Z87.19 Active 832580265432990 Problem Excessive and frequent menstruation with irregular cycle N92.1 Active 228694664 Problem Mitral valve prolapse I34.1 Active 008264086 Problem Abnormal uterine bleeding (AUB) N93.9 Active 24322459460286 Problem Tachycardia R00.0 Active 2203239 ALLERGIES No Information ENCOUNTERS Encounter Location Date Diagnosis [facility] [address] [address] Jan, [facility] [id number] [place] [address] December, [facility] [id number] [place] [address] December, Diverticulitis K57.92 ; Dysuria R30.0 ; Other constipation K59.09 and Lower abdominal pain R10.30 [facility] [id number] [address] Nov, Diverticulitis K57.92 [facility] [address] [address] Nov, Generalized anxiety disorder F41.1 and Bereavement Z63.4 [facility] [address] [place] [address] Nov, Generalized anxiety disorder F41.1 and Bereavement Z63.4 [facility] [address] [place] [address] Nov, Diverticulitis K57.92 [facility] [address] [place] [address] Oct, Diverticulitis K57.92 [facility] [address] [place] [address] Oct, Diverticulitis K57.92 [facility] [id number] [place] [address] Oct, Generalized anxiety disorder F41.1 [facility] [address] [place] [address] Oct, Right lower quadrant abdominal pain R10.31 and Diverticulitis K57.92 [facility] [address] [place] [address] Sep, Generalized anxiety disorder F41.1 and Bereavement Z63.4 [facility] [address] [place] [address] Aug, [facility] [address] [place] [address] Aug, Generalized anxiety disorder F41.1 and Bereavement Z63.4 [facility] [address] [id number] [address] Aug, Caries K02.9 [facility] [address] [place] [address] Jul, Generalized anxiety disorder F41.1 and Bereavement Z63.4 [facility] [address] [place] [address] Jul, Other acute gastritis without hemorrhage K29.00 ; Generalized anxiety disorder F41.1 ; Tachycardia R00.0 and Essential hypertension I10 [facility] [id number] [place] [address] Jul, Generalized anxiety disorder F41.1 and Bereavement Z63.4 [facility] [id number] [place] [address] Jun, Generalized anxiety disorder F41.1 and Bereavement Z63.4 [facility] [id number] [place] [address] Jun, Generalized anxiety disorder F41.1 and Bereavement Z63.4 [facility] [address] [place] [address] Jun, Dental examination Z01.20 [facility] [id number] [place] [address] May, Generalized anxiety disorder F41.1 and Bereavement Z63.4 [facility] [id number] [place] [address] May, Encounter for immunization Z23 [facility] [id number] [place] [address] May, Generalized anxiety disorder F41.1 and Bereavement Z63.4 [facility] [id number] [place] [address] May, [facility] [id number] [place] [address] 24 Apr, 2018 Generalized anxiety disorder F41.1 and Bereavement Z63.4 [facility] [id number] [place] [address] 17 Apr, 2018 [facility] [id number] [place] [address] 13 Apr, 2018 Diverticulitis K57.92 [facility] [id number] [place] [address] Apr, Generalized anxiety disorder F41.1 and Bereavement Z63.4 [facility] [id number] [place] [address] Mar, [facility] [id number] [place] [address] Mar, Diverticulitis K57.92 [place] [address] [address] Mar, Generalized anxiety disorder F41.1 and Bereavement Z63.4 [facility] [id number] [place] [address] Mar, Hypertension I10 [place] [facility] [id number] [place] [address] Mar, Generalized anxiety disorder F41.1 and Bereavement Z63.4 [facility] [id number] [place] [address] Feb, Generalized anxiety disorder F41.1 and Bereavement Z63.4 [place] [facility] [id number] [place] [address] Feb, [place] [id number] [place] [address] Feb, Generalized anxiety disorder F41.1 and Bereavement Z63.4 [place] [address] [address] Feb, Generalized anxiety disorder F41.1 and Bereavement Z63.4 [place] [facility] [id number] [place] [address] Jan, Hypertension I10 and Acute non-recurrent maxillary sinusitis J01.00 [facility] [id number] [address] December, [facility] [id number] [place] [address] December, Hypertension I10 [facility] [address] [place] [address] December, Generalized anxiety disorder F41.1 [facility] [id number] [place] [address] Oct, Encounter for dental examination Z01.20 [facility] [id number] [place] [address] Oct, Encounter for dental examination Z01.20 [facility] [id number] [place] [address] Oct, Dental examination Z01.20 [facility] [address] [place] [address] Oct, Generalized anxiety disorder F41.1 [facility] [id number] [place] [address] Aug, Dental examination Z01.20 [facility] [address] [place] [address] Aug, Generalized anxiety disorder F41.1 [facility] [address] [place] [address] Aug, [facility] [address] [id number] [address] Aug, Encounter for dental examination Z01.20 [facility] [id number] [place] [address] Aug, Subacute maxillary sinusitis J01.00 [facility] [address] [id number], [place] [address] Jul, Dental examination Z01.20 [facility] [id number] [address] Jul, Generalized anxiety disorder F41.1 [facility] [id number] [place] [address] Jul, Diverticulitis K57.92 [facility] [id number] [place] [address] Jun, Encounter for immunization Z23 [facility] [id number] [place] [address] Jun, Dental examination Z01.20 [facility] [id number] [place] [address] Jun, Generalized anxiety disorder F41.1 [facility] [id number] [place] [address] Jun, Dental examination Z01.20 [facility] [id number] [place] [address] May, [facility] [id number] [place] [id number] May, Dental examination Z01.20 [facility] [id number] [place] [id number] May, Dental examination Z01.20 [facility] [id number] [place] [address] May, Dental examination Z01.20 [facility] [address] [address] May, [facility] [id number] [place] [address] May, Generalized anxiety disorder F41.1 [facility] [id number], [place] [address] 05 May, 2017 Localized edema R60.0 ; Yeast vaginitis B37.3 and Gastroesophageal reflux disease with esophagitis K21.0 [facility] [address] [id number] [id number] 26 Apr, 2017 Dental examination Z01.20 [facility] [address] [id number], [place] [address] Apr, Dental examination Z01.20 [facility] [id number] [place] [address] 05 Apr, 2017 Dental examination Z01.20 [facility] [id number] [place] [address] Mar, Dyspepsia R10.13 [facility] [address] [id number] [place] [address] Mar, Generalized anxiety disorder F41.1 [facility] [id number] [place] [address] Mar, Encounter for dental examination Z01.20 [facility] [address] [id number] [place] [phone] Mar, [facility] [address] [id number] [place] [phone] Mar, Dental examination Z01.20 [facility] [id number] [place] [phone] Feb, Hypertension I10 and Tachycardia R00.0 [facility] [address] [id number], [place] [address] Feb, [facility] [id number] [place] [address] Feb, Generalized anxiety disorder F41.1 [facility] [address] [id number] [place] [id number] Feb, Dental examination Z01.20 [facility] [id number] [place] [address] Jan, Generalized anxiety disorder F41.1 [facility] [address] [place] [address] December, Generalized anxiety disorder F41.1 [facility] [id number] [place] [id number] December, Encounter for dental examination Z01.20 [facility] [id number] [place] [address] Nov, [facility] [id number] [place] [address] Nov, [facility] [id number] [place] [address] Nov, Generalized anxiety disorder F41.1 [facility] [id number] [place] [address] Oct, [facility] [id number] [place] [address] [id number] Oct, Dental examination Z01.20 [facility] [id number] [place] [address] Oct, Vaginal dryness N89.8 [facility] [id number] [place] [address] Oct, Pseudoseizures F44.5 [facility] [id number] [place] [address] Oct, Generalized anxiety disorder F41.1 [facility] [id number] [place] [address] Sep, Abnormal uterine bleeding (AUB) N93.9 ; Vaginal dryness N89.8 and Screening breast examination Z12.39 [facility] [id number] [place] [address] Sep, Dental examination Z01.20 [facility] [id number] [place] [address] Sep, Generalized anxiety disorder F41.1 [facility] [address] [place] [address] 06 Sep, 2017 Unspecified ovarian cyst, right side N83.201 ; Unspecified ovarian cyst, left side N83.202 ; Yeast infection of the vagina B37.3 ; Mitral valve prolapse I34.1 and Hypertension I10 [facility] [id number] [place] [address] Aug, Generalized anxiety disorder F41.1 [facility] [id number] [place] [address] Jul, [facility] [address] [address] Jul, Generalized anxiety disorder F41.1 [facility] [id number] [place] [address] Jun, Generalized anxiety disorder F41.1 [facility] [address] [address] May, Encounter for immunization Z23 [facility] [address] [address] 17 May, 2016 Generalized anxiety disorder F41.1 and Depressive disorder, not elsewhere classified F32.9 [facility] [id number] [place] [address] 28 Apr, 2016 Hypertension I10 [facility] [id number] [place] [address] 22 Apr, 2016 Cervicalgia M54.2 [facility] [id number] [place] [address] 12 Apr, 2016 Cervicalgia M54.2 [facility] [id number] [place] [address] Mar, Generalized anxiety disorder F41.1 and Depressive disorder, not elsewhere classified F32.9 [facility] [id number] [place] [address] [id number] 14 Feb, 2016 Visit for dental examination Z01.20 [facility] [address] [place] [address] 11 Feb, 2016 Pseudoseizures F44.5 ; Migraine without status migrainosus, not intractable, unspecified migraine type G43.909 and Essential hypertension I10 [facility] [address] [id number] 06 Feb, 2016 Dental examination Z01.20 [facility] [id number] [place] [address] 05 Feb, 2016 Generalized anxiety disorder F41.1 and Depressive disorder, not elsewhere classified F32.9 [facility] [id number] [place] [address] 27 Jan, 2016 Tachycardia R00.0 [place] [id number] [place] [address] December, Eustachian tube dysfunction, bilateral H69.83 [facility] [id number] [place] [address] December, Generalized anxiety disorder F41.1 and Depressive disorder, not elsewhere classified F32.9 [facility] [address] [place] [address] Nov, [place] [address], [place] [address] 28 Nov, 2015 [facility] [id number] [place] [address] Nov, Hypertension I10 ; Onychomycosis B35.1 ; [...] and Complex cyst of left ovary N83.29 [place] [id number] [place] [address] Nov, Sinusitis J32.9 [place] [address] [address] Oct, Complex cyst of left ovary N83.29 [place] [address] [address] Oct, Onychomycosis B35.1 [facility] [address] [id number] Oct, Dental examination Z01.20 [place] [address] [address] 09 Oct, 2015 Well woman exam Z01.419 [...] R92.2 and History of colon polyps Z86.010 [place] [id number] [place] [address] Oct, Generalized anxiety disorder F41.1 and Depressive disorder, not elsewhere classified F32.9 [place] [facility] [id number] [place] [address] Sep, Hypertension I10 and Onychomycosis B35.1 [place] [address] [address] 16 Sep, 2015 Skin tags, multiple acquired L91.8 [place] [id number] [place] [address] Aug, [place] [address] [place] [address] Aug, [facility] [id number] [place] [address] Aug, [facility] [id number] [place] [address] Aug, Generalized anxiety disorder F41.1 and Depressive disorder, not elsewhere classified F32.9 [facility] [id number] [place] [address] Jul, Skin lesion L98.9 [facility] [address] [address] Jun, Generalized anxiety disorder F41.1 and Depressive disorder, not elsewhere classified F32.9 [facility] [id number] [place] [address] Jun, [facility] [id number] [place] [address] Jun, Generalized anxiety disorder F41.1 [facility] [id number] [place] [address] May, Encounter for immunization Z23 and Right shoulder pain M25.511 [facility] [id number] [place] [address] Apr, [facility] [id number] [place] [address] 14 Apr, 2015 Generalized anxiety disorder 300.02 and Depressive disorder, not elsewhere classified 311 [facility] [address] [place] [id number] Mar, Dental examination V72.2 [facility] [id number] [place] [address] Mar, Generalized anxiety disorder 300.02 and Depressive disorder, not elsewhere classified 311 [facility] [id number] [place] [address] Mar, Depression, major, recurrent, 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.35 and 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 [facility] [id number] [place] [address] Feb, Generalized anxiety disorder 300.02 and Depressive disorder, not elsewhere classified 311 [facility] [address] [id number] Feb, Dental examination V72.2 [facility] [id number] [place] [address] Jan, Generalized anxiety disorder 300.02 and Depressive disorder, not elsewhere classified 311 [facility] [id number] [place] [address] Jan, [facility] [id number] [place] [address] December, Generalized anxiety disorder 300.02 and Depressive disorder, not elsewhere classified 311 [facility] [id number] [place] [address] December, Major depressive disorder, recurrent, unspecified 296.30 and Panic disorder with agoraphobia 300.21 [facility] [address] [address] Nov, [facility] [address] [address] Nov, [facility] [id number] [place] [id number] Oct, [facility] [id number] [address] Oct, [facility] [id number] [place] [id number] Oct, [facility] [id number] [address] Oct, [facility] [id number] [place] [address] Sep, 2014 [facility] [place] [facility] [address] [id number] [place] [address] Sep, 2014 [facility] [place] [facility] [address] [id number] [place] [address] Sep, 2014 [facility] [place] [facility] [address] [id number] [place] [address] Sep, 2014 [facility] [place] [facility] [address] [id number] [place] [address] Sep, 2014 [facility] [place] [facility] [address] [id number] [place] [address] Sep, 2014 [facility] [place] [facility] [address] [facility] [id number] [place] [address] Sep, 2014 [facility] [place] [facility] [address] [facility] [id number] [place] [address] Sep, 2014 [facility] [place] [facility] [address] [id number] [place] [address] Sep, 2014 [facility] [place] [facility] [address] [facility] [id number] [place] [address] Sep, 2014 [facility] [place] [facility] [address] [facility] [id number] [place] [address] Aug, [facility] [place] [facility] [address] [facility] [id number] [place] [address] Aug, [facility] [place] [facility] [address] [id number] [place] [address] Jul, [facility] [place] [facility] [address] [id number] [place] [address] Jul, [facility] [place] [facility] [address] [facility] [id number] [place] [address] Jul, [facility] [place] [facility] [address] [facility] [id number] [place] [address] Jul, [facility] [place] [facility] [address] [id number] [place] [address] Jul, [facility] [place] [facility] [address] [id number] [place] [address] Jul, [facility] [place] [facility] [address] [address] [id number] [place] [address] Jul, [facility] [place] [facility] [address] [id number] [place] [address] Jul, [facility] [place] [facility] [address] [id number] [place] [address] Jul, [facility] [place] [facility] [address] [id number] [place] [address] Jul, [facility] [place] [facility] [address] [id number] [place] [address] Jul, [facility] [place] [facility] [address] [id number] [place] [address] Jul, [facility] [place] [facility] [address] [id number] [place] [address] Jun, [facility] [place] [facility] [address] [id number] [place] [address] Jun, [facility] [place] [facility] [address] [id number], [place] [address] May, [facility] [place] [facility] [address] [id number], [place] [address] May, [facility] [place] [facility] [address] [id number] [place] [address] May, [facility] [place] [facility] [address] [id number], [place] [address] May, [facility] [place] [facility] [address] [id number], [place] [address] May, [facility] [place] [facility] [address] [id number] [place] [address] May, 2013 [facility] [place] [facility] [address] [id number] [place] [address] May, 2013 [facility] [place] [facility] [address] [id number] [place] [address] May, 2013 [facility] [place] [facility] [address] [id number] [place] [address] May, 2013 [facility] [place] [facility] [address] [id number] [place] [address] May, 2013 [facility] [place] [facility] [address] [id number] [place] [address] May, [facility] [place] [facility] [address] [id number] [place] [address] May, [facility] [place] [facility] [address] [id number] [place] [address] 30 Apr, 2013 [facility] [place] [facility] [address] [id number] [place] [address] 30 Apr, 2013 [facility] [place] [facility] [address] [id number] [place] [address] 29 Apr, 2013 [facility] [place] [facility] [address] [id number] [place] [address] 29 Apr, 2013 [facility] [place] [facility] [address] [id number] [place] [address] Apr, 2013 [facility] [place] [facility] [address] [id number] [place] [address] Apr, 2013 [facility] [place] [facility] [address] [id number] [place] [address] Feb, [facility] [place] [facility] [address] [id number] [place] [address] Feb, [facility] [place] [facility] [address] [id number] [place] [address] Feb, [facility] [place] [facility] [address] [id number] [place] [address] Feb, [facility] [place] [facility] [address] [id number] [place] [address] Feb, [facility] [place] [facility] [address] [id number] [place] [address] Feb, [facility] [place] [facility] [address] [id number] [place] [address] Jan, [facility] [place] [facility] [address] [id number] [place] [address] Jan, [facility] [place] [facility] [address] [id number] [place] [address] Jan, [facility] [place] [facility] [address] [id number] [place] [address] Jan, [facility] [place] [facility] [address] [id number] [place] [address] Jan, [facility] [place] [facility] [address] [id number] [place] [address] Jan, [facility] [place] [facility] [address] [id number] [place] [address] Jan, [facility] [place] [facility] [address] [id number] [place] [address] Jan, [facility] [place] [facility] [address] [id number] [place] [address] December, [facility] [place] [facility] [address] [id number] [place] [address] December, [facility] [place] [facility] [address] [id number] [place] [address] December, [facility] [place] [facility] [address] [id number] [place] [address] December, [facility] [place] [facility] [address] [id number] [place] [address] Nov, [facility] [place] [facility] [address] [id number] [place] [address] Nov, [facility] [place] [facility] [address] [id number] [place] [address] Nov, [facility] [place] [facility] [address] [id number] [place] [address] Nov, [facility] [place] [facility] [address] [id number] [place] [address] Nov, [facility] [place] [facility] [address] [id number] [place] [address] Nov, [facility] [place] [facility] [address] [id number] [place] [address] Nov, [facility] [place] [facility] [address] [id number] [place] [address] Nov, [facility] [place] [facility] [address] [id number] [place] [address] Oct, [facility] [place] [facility] [address] [id number] [place] [address] Oct, [facility] [place] [facility] [address] [id number] [place] [address] Sep, [facility] [place] [facility] [address] [id number] [place] [address] Sep, [facility] [place] [facility] [address] [facility] [id number] [place] [id number] Sep, [facility] [place] [facility] [address] [id number] [place] [address] Sep, [facility] [place] [facility] [address] [id number] [place] [address] Sep, [facility] [place] [facility] [address] [id number] [place] [address] Sep, [facility] [place] [facility] [address] [id number] [place] [address] Aug, [facility] [place] [facility] [address] [id number] [place] [address] Aug, [facility] [place] [facility] [address] [id number] [place] [address] Aug, [facility] [place] [facility] [address] [id number] [place] [address] Aug, [facility] [place] [facility] [address] [id number] [place] [address] Jul, [facility] [place] [facility] [address] [id number] [place] [address] Jul, [facility] [place] [facility] [address] [id number] [place] [address] Jul, [facility] [place] [facility] [address] [id number] [place] [address] Jul, [facility] [place] [facility] [address] [id number] [place] [address] Jun, [facility] [place] [facility] [address] [id number] [place] [address] Jun, [facility] [place] [facility] [address] [id number] [place] [address] May, [facility] [place] [facility] [address] [id number] [place] [address] 24 May, 2013 [facility] [place] [facility] [address] [id number] [place] [address] May, [facility] [place] [facility] [address] [id number] [place] [address] May, [facility] [place] [facility] [address] [id number] [place] [address] 10 May, 2013 [facility] [place] [facility] [address] [id number] [place] [address] Apr, [facility] [place] [facility] [address] [id number] [place] [address] Apr, [facility] [place] [facility] [address] [id number] [place] [address] Mar, [facility] [place] [facility] [address] [id number] [place] [address] Mar, [facility] [place] [facility] [address] [id number] [place] [address] Mar, [facility] [place] [facility] [address] [id number] [place] [address] Mar, [facility] [place] [facility] [address] [id number] [place] [address] Feb, [facility] [place] [facility] [address] [id number] [place] [address] Feb, [facility] [place] [facility] [address] [id number] [place] [address] Feb, [facility] [place] [facility] [address] [id number] [place] [address] Feb, [facility] [place] [facility] [address] [id number] [place] [address] Feb, [facility] [place] [facility] [address] [id number] [place] [address] Jan, [facility] [place] [facility] [address] [id number], [place] [address] Jan, [facility] [place] [facility] [address] [id number] [place] [address] Jan, [facility] [place] [facility] [address] [id number] [place] [address] Jan, [facility] [place] [facility] [address] [id number] [place] [address] Jan, [facility] [place] [facility] [address] [id number] [place] [address] 16 Dec, 2012 [facility] [address] [id number] [place] [address] December, [facility] [address] [id number] [place] [address] Nov, [facility] [address] [id number] [place] [address] Nov, [facility] [address] [id number] [place] [address] Oct, [facility] [address] [id number] [place] [address] Oct, [facility] [address] [id number] [place] [address] 05 Oct, 2012 [facility] [address] [id number] [place] [address] 14 Sep, 2012 [facility] [address] [id number] [place] [address] Aug, [facility] [address] [id number] [place] [address] Aug, [facility] [address] [id number] [place] [address] Aug, [facility] [address] [id number] [place] [address] Aug, [facility] [address] [id number] [place] [address] Jul, [facility] [address] [id number] [place] [address] Jul, [facility] [address] [id number] [place] [address] Jul, [facility] [address] [id number] [place] [address] Jul, [facility] [place] [facility] [address] [id number] [place] [address] Jul, [facility] [place] [facility] [address] [id number] [place] [address] Jul, [facility] [place] [facility] [address] [id number] [place] [address] Jul, [facility] [place] [facility] [address] [id number] [place] [address] Jul, [facility] [place] [facility] [address] [id number] [place] [address] Jun, [facility] [place] [facility] [address] [id number] [place] [address] Jun, [facility] [place] [facility] [address] [facility] [id number] [place] [address] Jun, [facility] [place] [facility] [address] [id number], [place] [address] Jun, [facility] [place] [facility] [address] [facility] [id number] [place] [address] Jun, [facility] [place] [facility] [address] [facility] [id number], [place] [address] Jun, [facility] [place] [facility] [address] [facility] [id number], [place] [address] May, [facility] [place] [facility] [address] [id number], [place] [address] May, [facility] [place] [facility] [address] [id number], [place] [address] May, [facility] [place] [facility] [address] [id number], [place] [address] May, [facility] [place] [facility] [address] [facility] [id number], [place] [address] Apr, [facility] [place] [facility] [address] [id number], [place] [address] 06 Apr, 2012 [facility] [place] [facility] [address] [id number] [place] [address] 08 Mar, 2012 [facility] [place] [facility] [address] [id number] [place] [address] 28 Jan, 2012 [facility] [place] [facility] [address] [id number] [place] [address] 20 Jan, 2012 [facility] [place] [facility] [address] [id number] [place] [address] 16 Jan, 2012 [facility] [place] [facility] [address] [id number] [place] [address] 15 Jan, 2012 [facility] [place] [facility] [address] [id number] [place] [address] 14 Jan, 2012 [facility] [place] [facility] [address] [id number] [place] [address] 14 Jan, 2012 [facility] [place] [facility] [address] [id number] [place] [address] 07 Jan, 2012 [facility] [place] [facility] [address] [id number] [place] [address] December, [facility] [place] [facility] [address] [id number] [place] [address] December, [facility] [place] [facility] [address] [id number] [place] [address] December, [facility] [place] [facility] [address] [id number] [place] [address] December, [facility] [place] [facility] [address] [id number] [place] [address] Nov, [facility] [place] [facility] [address] [id number] [place] [address] Nov, [facility] [place] [facility] [address] [id number] [place] [address] Oct, [facility] [place] [facility] [address] [id number] [place] [address] 28 Oct, 2011 [facility] [address] [id number] [place] [address] 15 Oct, 2011 [facility] [place] [facility] [address] [id number] [place] [address] 22 Sep, 2011 [facility] [place] [facility] [address] [id number] [place] [address] Sep, [facility] [place] [facility] [address] [id number] [place] [address] Sep, [facility] [place] [facility] [address] [id number] [place] [address] Aug, [facility] [address] [id number] [place] [address] Aug, [facility] [address] [id number] [place] [address] Aug, [facility] [address] [id number] [place] [address] Aug, [facility] [address] [id number] [place] [address] Aug, [facility] [address] [id number] [place] [address] Aug, [facility] [address] [id number] [place] [address] Aug, [facility] [place] [facility] [address] [id number] [place] [address] Jul, [facility] [place] [facility] [address] [id number] [place] [address] Jul, [facility] [place] [facility] [address] [id number] [place] [address] Jun, [facility] [place] [facility] [address] [id number] [place] [address] Jun, 2011 [facility] [place] [facility] [address] [id number] [place] [address] 17 Jun, 2011 [facility] [place] [facility] [address] [id number] [place] [address] 15 Jun, 2011 [facility] [place] [facility] [address] [id number] [place] [address] 14 Jun, 2011 [facility] [place] [facility] [address] [id number] [place] [address] 14 Jun, 2011 [facility] [place] [facility] [address] [id number] [place] [address] Jun, [facility] [place] [facility] [address] [id number] [place] [address] Jun, [facility] [place] [facility] [address] [id number] [place] [address] Jun, [facility] [place] [facility] [address] [id number], [place] [address] Jun, [facility] [place] [facility] [address] [id number] [place] [address] May, [facility] [place] [facility] [address] [id number] [place] [address] May, [facility] [place] [facility] [address] [id number], [place] [address] May, [facility] [place] [facility] [address] [id number], [place] [address] 24 May, 2011 [facility] [place] [facility] [address] [id number], [place] [address] 18 May, 2011 [facility] [place] [facility] [address] [id number], [place] [address] 13 May, 2011 [facility] [place] [facility] [address] [id number], [place] [address] Feb, [facility] [place] [facility] [id number], [place] [address] December, [facility] [id number], [place] [address] Jul, [facility] [address] [facility] [id number], [place] [address] Jul, [facility] [id number], [place] [address] Jul, [facility] [id number], [place] [address] Jul, [facility] [id number] [place] [address] Jun, [facility] [id number], [place] [address] Jul, [facility] [id number], [place] [address] Jul, [facility] [id number], [place] [address] Jul, [facility] [id number], [place] [address] Jul, [facility] [id number], [place] [address] 17 Jul, 2009 [facility] [id number], [place] [address] Jul, [facility] [address] [id number], [place] [address] 15 Jan, 2009 [facility] [id number], [place] [address] 16 Sep, 2008 [facility] [id number], [place] [address] 11 Sep, 2008 IMMUNIZATIONS No Known Immunizations SOCIAL HISTORY Never Assessed REASON FOR VISIT EMR-[facility] [place] PLAN OF CARE VITAL SIGNS MEDICATIONS Unknown [...]
--- OUTSIDE RECORDS SUMMARY | 2019-01-22 20:32 | XMS REPORT ---
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 Name Role Phone Migration, Doctor Unavailable Unavailable PROBLEMS Type Condition ICD9-CM Code VXK90-ZC Code Onset Dates Condition Status SNOMED Code Problem Hypertension I10 Active 50223630 Problem Generalized anxiety disorder F41.1 Active 828891638 Problem History of colon polyps Z86.010 Active 997314164 Problem History of diverticulitis Z87.19 Active 711519779126732 Problem Family history of diabetes mellitus Z83.3 Active 092803976 Problem Excessive and frequent menstruation with irregular cycle N92.1 Active 007187644 Problem Hot flashes N95.1 Active 592833896 Problem Gastroesophageal reflux disease with esophagitis K21.0 Active 306891683 Problem History of ovarian cyst Z87.42 Active 44991149 Problem Diverticulitis K57.92 Active 554274941 Problem Dense breast tissue R92.2 Active 805437595 Problem Perimenopausal N95.1 Active 998774860475532 Problem Mitral valve prolapse I34.1 Active 267231422 Problem Abnormal uterine bleeding (AUB) N93.9 Active 95883228627998 Problem Tachycardia R00.0 Active 9208133 ALLERGIES No Information ENCOUNTERS Encounter Location Date Diagnosis [facility] [address], [place] [address] Jan, [facility] [id number], [place] [address] December, [facility] [id number] [place] [address] December, Diverticulitis K57.92 ; Dysuria R30.0 ; Other constipation K59.09 and Lower abdominal pain R10.30 [facility] [id number], [place] [address] Nov, Diverticulitis K57.92 [facility] [address], [place] [address] Nov, Generalized anxiety disorder F41.1 and Bereavement Z63.4 [facility] [address] [place] [address] Nov, Generalized anxiety disorder F41.1 and Bereavement Z63.4 [facility] [address] [place] [address] Nov, Diverticulitis K57.92 [facility] [address] [place] [address] Oct, Diverticulitis K57.92 [facility] [address] [place] [address] Oct, Diverticulitis K57.92 [facility] [id number] [place] [address] Oct, Generalized anxiety disorder F41.1 [facility] [address] [place] [address] Oct, Right lower quadrant abdominal pain R10.31 and Diverticulitis K57.92 [facility] [address] [place] [address] Sep, Generalized anxiety disorder F41.1 and Bereavement Z63.4 [facility] [address] [place] [address] Aug, [facility] [address] [place] [address] Aug, Generalized anxiety disorder F41.1 and Bereavement Z63.4 [facility] [address] [id number] [address] Aug, Caries K02.9 [facility] [address] [place] [address] Jul, Generalized anxiety disorder F41.1 and Bereavement Z63.4 [facility] [address] [place] [address] Jul, Other acute gastritis without hemorrhage K29.00 ; Generalized anxiety disorder F41.1 ; Tachycardia R00.0 and Essential hypertension I10 [facility] [id number] [place] [address] Jul, Generalized anxiety disorder F41.1 and Bereavement Z63.4 [facility] [id number] [place] [address] Jun, Generalized anxiety disorder F41.1 and Bereavement Z63.4 [facility] [id number] [place] [address] Jun, Generalized anxiety disorder F41.1 and Bereavement Z63.4 [facility] [address] [place] [address] Jun, Dental examination Z01.20 [facility] [id number] [place] [address] May, Generalized anxiety disorder F41.1 and Bereavement Z63.4 [facility] [id number] [place] [address] May, Encounter for immunization Z23 [facility] [id number] [place] [address] May, Generalized anxiety disorder F41.1 and Bereavement Z63.4 [facility] [id number] [place] [address] May, [facility] [id number] [place] [address] 24 Apr, 2018 Generalized anxiety disorder F41.1 and Bereavement Z63.4 [facility] [id number] [place] [address] 17 Apr, 2018 [facility] [id number] [place] [address] 13 Apr, 2018 Diverticulitis K57.92 [facility] [id number] [place] [address] Apr, Generalized anxiety disorder F41.1 and Bereavement Z63.4 [facility] [id number] [place] [address] Mar, [facility] [id number] [place] [address] Mar, Diverticulitis K57.92 [place] [address] [address] Mar, Generalized anxiety disorder F41.1 and Bereavement Z63.4 [facility] [id number] [place] [address] Mar, Hypertension I10 [facility] [id number] [place] [address] Mar, Generalized anxiety disorder F41.1 and Bereavement Z63.4 [facility] [id number] [place] [address] Feb, Generalized anxiety disorder F41.1 and Bereavement Z63.4 [facility] [id number] [place] [address] Feb, [facility] [id number] [place] [address] Feb, Generalized anxiety disorder F41.1 and Bereavement Z63.4 [facility] [facility] [address] [address] Feb, Generalized anxiety disorder F41.1 and Bereavement Z63.4 [facility] [id number] [place] [address] Jan, Hypertension I10 and Acute non-recurrent maxillary sinusitis J01.00 [facility] [id number], [place] [address] December, [facility] [id number] [place] [address] December, Hypertension I10 [facility] [address] [place] [address] December, Generalized anxiety disorder F41.1 [facility] [id number] [place] [address] Oct, Encounter for dental examination Z01.20 [facility] [id number] [place] [address] Oct, Encounter for dental examination Z01.20 [facility] [id number] [place] [address] Oct, Dental examination Z01.20 [facility] [address] [place] [address] Oct, Generalized anxiety disorder F41.1 [facility] [id number] [place] [address] Aug, Dental examination Z01.20 [facility] [address] [place] [address] Aug, Generalized anxiety disorder F41.1 [facility] [address] [place] [address] Aug, [facility] [address] [id number], [place] [address] Aug, Encounter for dental examination Z01.20 [facility] [id number] [place] [address] Aug, Subacute maxillary sinusitis J01.00 [facility] [address] [id number], [place] [address] Jul, Dental examination Z01.20 [facility] [id number], [place] [address] Jul, Generalized anxiety disorder F41.1 [facility] [id number] [place] [address] Jul, Diverticulitis K57.92 [facility] [id number] [place] [address] Jun, Encounter for immunization Z23 [facility] [id number] [place] [address] Jun, Dental examination Z01.20 [facility] [id number] [place] [address] Jun, Generalized anxiety disorder F41.1 [facility] [id number] [place] [address] Jun, Dental examination Z01.20 [facility] [id number] [place] [address] May, [facility] [id number] [place] [address] [id number] May, Dental examination Z01.20 [facility] [id number] [place] [address] [phone] May, Dental examination Z01.20 [facility] [id number] [place] [address] May, Dental examination Z01.20 [facility] [address], [place] [address] May, [facility] [id number] [place] [address] May, Generalized anxiety disorder F41.1 [facility] [id number], [place] [address] 05 May, 2017 Localized edema R60.0 ; Yeast vaginitis B37.3 and Gastroesophageal reflux disease with esophagitis K21.0 [facility] [address] [id number] [id number] 26 Apr, 2017 Dental examination Z01.20 [facility] [address] [id number], [place] [address] Apr, Dental examination Z01.20 [facility] [id number] [place] [address] 05 Apr, 2017 Dental examination Z01.20 [facility] [id number] [place] [address] Mar, Dyspepsia R10.13 [facility] [id number] [place] [address] Mar, Generalized anxiety disorder F41.1 [facility] [id number] [place] [address] Mar, Encounter for dental examination Z01.20 [facility] [address] [id number] [place] [phone] Mar, [facility] [address] [id number] [place] [address] [id number] Mar, Dental examination Z01.20 [facility] [id number] [place] [address] Feb, Hypertension I10 and Tachycardia R00.0 [facility] [address] [id number], [place] [address] Feb, [facility] [id number] [place] [address] Feb, Generalized anxiety disorder F41.1 [facility] [id number] [place] [id number] Feb, Dental examination Z01.20 [facility] [id number] [place] [address] Jan, Generalized anxiety disorder F41.1 [facility] [address] [place] [address] December, Generalized anxiety disorder F41.1 [facility] [id number] [place] [address] [id number] December, Encounter for dental examination Z01.20 [facility] [id number] [place] [address] Nov, [facility] [id number] [place] [address] Nov, [facility] [id number] [place] [address] Nov, Generalized anxiety disorder F41.1 [facility] [id number] [place] [address] Oct, [facility] [id number] [place] [phone] Oct, Dental examination Z01.20 [facility] [id number] [place] [address] Oct, Vaginal dryness N89.8 [facility] [id number] [place] [address] Oct, Pseudoseizures F44.5 [facility] [id number] [place] [address] Oct, Generalized anxiety disorder F41.1 [facility] [id number] [place] [address] Sep, Abnormal uterine bleeding (AUB) N93.9 ; Vaginal dryness N89.8 and Screening breast examination Z12.39 [facility] [id number] [place] [address] Sep, Dental examination Z01.20 [facility] [id number] [place] [address] Sep, Generalized anxiety disorder F41.1 [facility] [address] [place] [address] 06 Sep, 2017 Unspecified ovarian cyst, right side N83.201 ; Unspecified ovarian cyst, left side N83.202 ; Yeast infection of the vagina B37.3 ; Mitral valve prolapse I34.1 and Hypertension I10 [facility] [id number] [place] [address] Aug, Generalized anxiety disorder F41.1 [facility] [id number] [place] [address] Jul, [facility] [address] [address] Jul, Generalized anxiety disorder F41.1 [facility] [id number] [place] [address] Jun, Generalized anxiety disorder F41.1 [facility] [address] [address] May, Encounter for immunization Z23 [facility] [address] [address] 17 May, 2016 Generalized anxiety disorder F41.1 and Depressive disorder, not elsewhere classified F32.9 [facility] [id number] [place] [address] 28 Apr, 2016 Hypertension I10 [facility] [id number] [place] [address] 22 Apr, 2016 Cervicalgia M54.2 [facility] [id number] [place] [address] 12 Apr, 2016 Cervicalgia M54.2 [facility] [id number] [place] [address] Mar, Generalized anxiety disorder F41.1 and Depressive disorder, not elsewhere classified F32.9 [facility] [id number] [place] [address] [id number] 14 Feb, 2016 Visit for dental examination Z01.20 [facility] [address] [place] [address] 11 Feb, 2016 Pseudoseizures F44.5 ; Migraine without status migrainosus, not intractable, unspecified migraine type G43.909 and Essential hypertension I10 [facility] [address] [id number] 06 Feb, 2016 Dental examination Z01.20 [facility] [id number] [place] [address] 05 Feb, 2016 Generalized anxiety disorder F41.1 and Depressive disorder, not elsewhere classified F32.9 [facility] [id number] [place] [address] 27 Jan, 2016 Tachycardia R00.0 [place] [id number] [place] [address] December, Eustachian tube dysfunction, bilateral H69.83 [facility] [id number] [place] [address] December, Generalized anxiety disorder F41.1 and Depressive disorder, not elsewhere classified F32.9 [facility] [address] [place] [address] Nov, [place] [address], [place] [address] 28 Nov, 2015 [facility] [id number] [place] [address] Nov, Hypertension I10 ; Onychomycosis B35.1 ; [...] and Complex cyst of left ovary N83.29 [facility] [id number] [place] [address] Nov, Sinusitis J32.9 [place] [address] [address] Oct, Complex cyst of left ovary N83.29 [place] [address] [address] Oct, Onychomycosis B35.1 [facility] [address] [id number] Oct, Dental examination Z01.20 [place] [address] [address] 09 Oct, 2015 Well woman exam Z01.419 [...] R92.2 and History of colon polyps Z86.010 [facility] [id number] [place] [address] Oct, Generalized anxiety disorder F41.1 and Depressive disorder, not elsewhere classified F32.9 [facility] [id number] [place] [address] Sep, Hypertension I10 and Onychomycosis B35.1 [place] [address] [address] 16 Sep, 2015 Skin tags, multiple acquired L91.8 [place] [id number] [place] [address] Aug, [place] [address] [place] [address] Aug, [facility] [id number] [place] [address] Aug, [facility] [id number] [place] [address] Aug, Generalized anxiety disorder F41.1 and Depressive disorder, not elsewhere classified F32.9 [facility] [id number] [place] [address] Jul, Skin lesion L98.9 [facility] [address] [address] Jun, Generalized anxiety disorder F41.1 and Depressive disorder, not elsewhere classified F32.9 [facility] [id number] [place] [address] Jun, [facility] [id number] [place] [address] Jun, Generalized anxiety disorder F41.1 [facility] [id number] [place] [address] May, Encounter for immunization Z23 and Right shoulder pain M25.511 [facility] [id number] [place] [address] Apr, [facility] [id number] [place] [address] 14 Apr, 2015 Generalized anxiety disorder 300.02 and Depressive disorder, not elsewhere classified 311 [facility] [address] [place] [address] [id number] Mar, Dental examination V72.2 [facility] [id number] [place] [address] Mar, Generalized anxiety disorder 300.02 and Depressive disorder, not elsewhere classified 311 [facility] [id number] [place] [address] Mar, Depression, major, recurrent, 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.35 and 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 [facility] [id number] [place] [address] Feb, Generalized anxiety disorder 300.02 and Depressive disorder, not elsewhere classified 311 [facility] [address] [id number] Feb, Dental examination V72.2 [facility] [id number] [place] [address] Jan, Generalized anxiety disorder 300.02 and Depressive disorder, not elsewhere classified [address] [facility] [id number] [place] [address] Jan, [facility] [id number] [place] [address] December, Generalized anxiety disorder 300.02 and Depressive disorder, not elsewhere classified [address] [facility] [id number] [place] [address] December, Major depressive disorder, recurrent, unspecified 296.30 and Panic disorder with agoraphobia 300.21 [facility] [address], [place] [address] Nov, [facility] [address], [place] [address] Nov, [facility] [id number] [place] [address] Oct, [facility] [id number], [place] [address] Oct, [facility] [id number] [place] [address] Oct, [facility] [address], [place] [address] Oct, [facility] [id number] [place] [address] Sep, 2014 [facility] [place] [facility] [address] [id number] [place] [address] Sep, 2014 [facility] [place] [facility] [address] [id number] [place] [address] Sep, 2014 [facility] [place] [facility] [address] [id number] [place] [address] Sep, 2014 [facility] [place] [facility] [address] [id number] [place] [address] Sep, 2014 [facility] [place] [facility] [address] [id number] [place] [address] Sep, 2014 [facility] [place] [facility] [address] [facility] [id number] [place] [address] Sep, 2014 [facility] [place] [facility] [address] [facility] [id number] [place] [address] Sep, 2014 [facility] [place] [facility] [address] [id number] [place] [address] Sep, 2014 [facility] [place] [facility] [address] [facility] [id number] [place] [address] Sep, 2014 [facility] [place] [facility] [address] [facility] [id number] [place] [address] Aug, [facility] [place] [facility] [address] [facility] [id number] [place] [address] Aug, [facility] [place] [facility] [address] [id number] [place] [address] Jul, [facility] [place] [facility] [address] [id number] [place] [address] Jul, [facility] [place] [facility] [address] [facility] [id number] [place] [address] Jul, [facility] [place] [facility] [address] [facility] [id number] [place] [address] Jul, [facility] [place] [facility] [address] [id number] [place] [address] Jul, [facility] [place] [facility] [address] [id number] [place] [address] Jul, [facility] [place] [facility] [address] [id number] [place] [address] Jul, [facility] [place] [facility] [address] [id number] [place] [address] Jul, [facility] [place] [facility] [address] [id number] [place] [address] Jul, [facility] [place] [facility] [address] [id number] [place] [address] Jul, [facility] [place] [facility] [address] [id number] [place] [address] Jul, [facility] [place] [facility] [address] [id number] [place] [address] Jul, [facility] [place] [facility] [address] [id number] [place] [address] Jun, [facility] [place] [facility] [address] [id number] [place] [address] Jun, [facility] [place] [facility] [address] [id number], [place] [address] May, [facility] [place] [facility] [address] [id number], [place] [address] May, [facility] [place] [facility] [address] [id number] [place] [address] May, [facility] [place] [facility] [address] [id number], [place] [address] May, [facility] [place] [facility] [address] [address] [id number], [place] [address] May, [facility] [place] [facility] [address] [id number] [place] [address] May, 2013 [facility] [place] [facility] [address] [id number] [place] [address] May, 2013 [facility] [place] [facility] [address] [id number] [place] [address] May, 2013 [facility] [place] [facility] [address] [id number] [place] [address] May, 2013 [facility] [place] [facility] [address] [id number] [place] [address] May, 2013 [facility] [place] [facility] [address] [id number] [place] [address] May, [facility] [place] [facility] [address] [id number] [place] [address] May, [facility] [place] [facility] [address] [id number] [place] [address] 30 Apr, 2013 [facility] [place] [facility] [address] [id number] [place] [address] 30 Apr, 2013 [facility] [place] [facility] [address] [id number] [place] [address] 29 Apr, 2013 [facility] [place] [facility] [address] [id number] [place] [address] 29 Apr, 2013 [facility] [place] [facility] [address] [id number] [place] [address] Apr, 2013 [facility] [place] [facility] [address] [id number] [place] [address] Apr, 2013 [facility] [place] [facility] [address] [id number] [place] [address] Feb, [facility] [place] [facility] [address] [id number] [place] [address] Feb, [facility] [place] [facility] [address] [id number] [place] [address] Feb, [facility] [place] [facility] [address] [id number] [place] [address] Feb, [facility] [place] [facility] [address] [id number] [place] [address] Feb, [facility] [place] [facility] [address] [id number] [place] [address] Feb, [facility] [place] [facility] [address] [id number] [place] [address] Jan, [facility] [place] [facility] [address] [id number] [place] [address] Jan, [facility] [place] [facility] [address] [id number] [place] [address] Jan, [facility] [place] [facility] [address] [id number] [place] [address] Jan, [facility] [place] [facility] [address] [id number] [place] [address] Jan, [facility] [place] [facility] [address] [id number] [place] [address] Jan, [facility] [place] [facility] [address] [id number] [place] [address] Jan, [facility] [place] [facility] [address] [id number] [place] [address] Jan, [facility] [place] [facility] [address] [id number] [place] [address] December, [facility] [place] [facility] [address] [id number] [place] [address] December, [facility] [place] [facility] [address] [id number] [place] [address] December, [facility] [place] [facility] [address] [id number] [place] [address] December, [facility] [place] [facility] [address] [id number] [place] [address] Nov, [facility] [place] [facility] [address] [id number] [place] [address] Nov, [facility] [place] [facility] [address] [id number] [place] [address] Nov, [facility] [place] [facility] [address] [id number] [place] [address] Nov, [facility] [place] [facility] [address] [id number] [place] [address] Nov, [facility] [place] [facility] [address] [id number] [place] [address] Nov, [facility] [place] [facility] [address] [id number] [place] [address] Nov, [facility] [place] [facility] [address] [id number] [place] [address] Nov, [facility] [place] [facility] [address] [id number] [place] [address] Oct, [facility] [place] [facility] [address] [id number] [place] [address] Oct, [facility] [place] [facility] [address] [id number] [place] [address] Sep, [facility] [place] [facility] [address] [id number] [place] [address] Sep, [facility] [place] [facility] [address] [facility] [id number] [place] [id number] Sep, [facility] [place] [facility] [address] [id number] [place] [address] Sep, [facility] [place] [facility] [address] [id number] [place] [address] Sep, [facility] [place] [facility] [address] [id number] [place] [address] Sep, [facility] [place] [facility] [address] [id number] [place] [address] Aug, [facility] [place] [facility] [address] [id number] [place] [address] Aug, [facility] [place] [facility] [address] [id number] [place] [address] Aug, [facility] [place] [facility] [address] [id number] [place] [address] Aug, [facility] [place] [facility] [address] [id number] [place] [address] Jul, [facility] [place] [facility] [address] [id number] [place] [address] Jul, [facility] [place] [facility] [address] [id number] [place] [address] Jul, [facility] [place] [facility] [address] [id number] [place] [address] Jul, [facility] [place] [facility] [address] [id number] [place] [address] Jun, [facility] [place] [facility] [address] [id number] [place] [address] Jun, [facility] [place] [facility] [address] [id number] [place] [address] May, [facility] [place] [facility] [address] [id number] [place] [address] 24 May, 2013 [facility] [place] [facility] [address] [id number] [place] [address] May, [facility] [place] [facility] [address] [id number] [place] [address] May, [facility] [place] [facility] [address] [id number] [place] [address] 10 May, 2013 [facility] [place] [facility] [address] [id number] [place] [address] Apr, [facility] [place] [facility] [address] [id number] [place] [address] Apr, [facility] [place] [facility] [address] [id number] [place] [address] Mar, [facility] [place] [facility] [address] [id number] [place] [address] Mar, [facility] [place] [facility] [address] [id number] [place] [address] Mar, [facility] [place] [facility] [address] [id number] [place] [address] Mar, [facility] [place] [facility] [address] [id number] [place] [address] Feb, [facility] [place] [facility] [address] [id number] [place] [address] Feb, [facility] [place] [facility] [address] [id number] [place] [address] Feb, [facility] [place] [facility] [address] [id number] [place] [address] Feb, [facility] [place] [facility] [address] [id number] [place] [address] Feb, [facility] [place] [facility] [address] [id number] [place] [address] Jan, [facility] [place] [facility] [address] [id number], [place] [address] Jan, [facility] [place] [facility] [address] [id number] [place] [address] Jan, [facility] [place] [facility] [address] [id number] [place] [address] Jan, [facility] [place] [facility] [address] [id number] [place] [address] Jan, [facility] [place] [facility] [address] [id number] [place] [address] 16 Dec, 2012 [facility] [address] [id number] [place] [address] December, [facility] [address] [id number] [place] [address] Nov, [facility] [address] [id number] [place] [address] Nov, [facility] [address] [id number] [place] [address] Oct, [facility] [address] [id number] [place] [address] Oct, [facility] [address] [id number] [place] [address] 05 Oct, 2012 [facility] [address] [id number] [place] [address] 14 Sep, 2012 [facility] [address] [id number] [place] [address] Aug, [facility] [address] [id number] [place] [address] Aug, [facility] [address] [id number] [place] [address] Aug, [facility] [address] [id number] [place] [address] Aug, [facility] [address] [id number] [place] [address] Jul, [facility] [address] [id number] [place] [address] Jul, [facility] [address] [id number] [place] [address] Jul, [facility] [address] [id number] [place] [address] Jul, [facility] [place] [facility] [address] [id number] [place] [address] Jul, [facility] [place] [facility] [address] [id number] [place] [address] Jul, [facility] [place] [facility] [address] [id number] [place] [address] Jul, [facility] [place] [facility] [address] [id number] [place] [address] Jul, [facility] [place] [facility] [address] [id number] [place] [address] Jun, [facility] [place] [facility] [address] [id number] [place] [address] Jun, [facility] [place] [facility] [address] [facility] [id number] [place] [address] Jun, [facility] [place] [facility] [address] [id number], [place] [address] Jun, [facility] [place] [facility] [address] [facility] [id number] [place] [address] Jun, [facility] [place] [facility] [address] [facility] [id number], [place] [address] Jun, [facility] [place] [facility] [address] [facility] [id number], [place] [address] May, [facility] [place] [facility] [address] [id number], [place] [address] May, [facility] [place] [facility] [address] [id number], [place] [address] May, [facility] [place] [facility] [address] [id number], [place] [address] May, [facility] [place] [facility] [address] [facility] [id number], [place] [address] Apr, [facility] [place] [facility] [address] [id number], [place] [address] 06 Apr, 2012 [facility] [place] [facility] [address] [id number] [place] [address] 08 Mar, 2012 [facility] [place] [facility] [address] [id number] [place] [address] 28 Jan, 2012 [facility] [place] [facility] [address] [id number] [place] [address] 20 Jan, 2012 [facility] [place] [facility] [address] [id number] [place] [address] 16 Jan, 2012 [facility] [place] [facility] [address] [id number] [place] [address] 15 Jan, 2012 [facility] [place] [facility] [address] [id number] [place] [address] 14 Jan, 2012 [facility] [place] [facility] [address] [id number] [place] [address] 14 Jan, 2012 [facility] [place] [facility] [address] [id number] [place] [address] 07 Jan, 2012 [facility] [place] [facility] [address] [id number] [place] [address] December, [facility] [place] [facility] [address] [id number] [place] [address] December, [facility] [place] [facility] [address] [id number] [place] [address] December, [facility] [place] [facility] [address] [id number] [place] [address] December, [facility] [place] [facility] [address] [id number] [place] [address] Nov, [facility] [place] [facility] [address] [id number] [place] [address] Nov, [facility] [place] [facility] [address] [id number] [place] [address] Oct, [facility] [place] [facility] [address] [id number] [place] [address] 28 Oct, 2011 [facility] [place] [facility] [address] [id number] [place] [address] 15 Oct, 2011 [facility] [place] [facility] [address] [id number] [place] [address] 22 Sep, 2011 [facility] [place] [facility] [address] [id number] [place] [address] Sep, [facility] [place] [facility] [address] [id number] [place] [address] Sep, [facility] [place] [facility] [address] [id number] [place] [address] Aug, [facility] [address] [id number] [place] [address] Aug, [facility] [address] [id number] [place] [address] Aug, [facility] [address] [id number] [place] [address] Aug, [facility] [address] [id number] [place] [address] Aug, [facility] [address] [id number] [place] [address] Aug, [facility] [address] [id number] [place] [address] Aug, [facility] [place] [facility] [address] [id number] [place] [address] Jul, [facility] [place] [facility] [address] [id number] [place] [address] Jul, [facility] [place] [facility] [address] [id number] [place] [address] Jun, [facility] [place] [facility] [address] [id number] [place] [address] Jun, 2011 [facility] [place] [facility] [address] [id number] [place] [address] 17 Jun, 2011 [facility] [place] [facility] [address] [id number] [place] [address] 15 Jun, 2011 [facility] [place] [facility] [address] [id number] [place] [address] 14 Jun, 2011 [facility] [place] [facility] [address] [id number] [place] [address] 14 Jun, 2011 [facility] [place] [facility] [address] [id number] [place] [address] Jun, [facility] [place] [facility] [address] [id number] [place] [address] Jun, [facility] [place] [facility] [address] [id number] [place] [address] Jun, [facility] [place] [facility] [address] [id number], [place] [address] Jun, [facility] [place] [facility] [address] [id number] [place] [address] May, [facility] [place] [facility] [address] [id number] [place] [address] May, [facility] [place] [facility] [address] [id number], [place] [address] May, [facility] [place] [facility] [address] [id number], [place] [address] 24 May, 2011 [facility] [place] [facility] [address] [id number], [place] [address] 18 May, 2011 [facility] [place] [facility] [address] [id number], [place] [address] 13 May, 2011 [facility] [place] [facility] [address] [id number], [place] [address] Feb, [facility] [place] [facility] [id number], [place] [address] December, [facility] [id number], [place] [address] Jul, [facility] [address] [facility] [id number], [place] [address] Jul, [facility] [id number], [place] [address] Jul, [facility] [id number], [place] [address] Jul, [facility] [id number] [place] [address] Jun, [facility] [id number], [place] [address] Jul, [facility] [id number], [place] [address] Jul, [facility] [id number], [place] [address] Jul, [facility] [id number], [place] [address] Jul, [facility] [id number], [place] [address] 17 Jul, 2009 [facility] [id number], [place] [address] Jul, [facility] [address] [id number], [place] [address] 15 Jan, 2009 [facility] [id number], [place] [address] 16 Sep, 2008 [facility] [id number], [place] [address] 11 Sep, 2008 IMMUNIZATIONS No Known Immunizations SOCIAL HISTORY Never Assessed REASON FOR VISIT [place] [place] VITAL SIGNS MEDICATIONS Unknown [...]
--- OUTSIDE RECORDS SUMMARY | 2019-01-22 20:32 | XMS REPORT ---
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 Name Role Phone Migration, Doctor Unavailable Unavailable PROBLEMS Type Condition ICD9-CM Code [id number] Code Onset Dates Condition Status SNOMED Code Problem Hypertension I10 Active 68476189 Problem Generalized anxiety disorder F41.1 Active 542301048 Problem History of colon polyps Z86.010 Active 929553740 Problem History of diverticulitis Z87.19 Active 638211660009442 Problem Family history of diabetes mellitus Z83.3 Active 445971124 Problem Excessive and frequent menstruation with irregular cycle N92.1 Active 950228479 Problem Hot flashes N95.1 Active 225151653 Problem Gastroesophageal reflux disease with esophagitis K21.0 Active 245099588 Problem History of ovarian cyst Z87.42 Active 41388714 Problem Diverticulitis K57.92 Active 027563476 Problem Dense breast tissue R92.2 Active 387642944 Problem Perimenopausal N95.1 Active 780064238290318 Problem Mitral valve prolapse I34.1 Active 550869129 Problem Abnormal uterine bleeding (AUB) N93.9 Active 30386065312049 Problem Tachycardia R00.0 Active 0772656 ALLERGIES No Information ENCOUNTERS Encounter Location Date Diagnosis [facility] [id number] [address] Jan, [facility] [id number] [place] [address] December, [facility] [address] [place] [address] December, [facility] [address], [place] [address] Nov, Diverticulitis K57.92 [facility] [id number], [place] [address] Nov, Generalized anxiety disorder F41.1 and Bereavement Z63.4 [facility] [address], [place] [address] Nov, Generalized anxiety disorder F41.1 and Bereavement Z63.4 [facility] [address], [place] [address] Nov, Diverticulitis K57.92 [facility] [address] [place] [address] Oct, Diverticulitis K57.92 [facility] [address] [place] [address] Oct, Diverticulitis K57.92 [facility] [address] [place] [address] Oct, Generalized anxiety disorder F41.1 [facility] [address] [place] [address] Oct, Right lower quadrant abdominal pain R10.31 and Diverticulitis K57.92 [facility] [address] [place] [address] Sep, Generalized anxiety disorder F41.1 and Bereavement Z63.4 [facility] [address], [place] [address] Aug, [facility] [address] [place] [address] Aug, Generalized anxiety disorder F41.1 and Bereavement Z63.4 [facility] [address] [id number] [address] Aug, Caries K02.9 [facility] [address], [place] [address] Jul, Generalized anxiety disorder F41.1 and Bereavement Z63.4 [facility] [address] [place] [address] Jul, Other acute gastritis without hemorrhage K29.00 ; Generalized anxiety disorder F41.1 ; Tachycardia R00.0 and Essential hypertension I10 [facility] [id number] [place] [address] Jul, Generalized anxiety disorder F41.1 and Bereavement Z63.4 [facility] [id number] [place] [address] Jun, Generalized anxiety disorder F41.1 and Bereavement Z63.4 [facility] [id number] [place] [address] Jun, Generalized anxiety disorder F41.1 and Bereavement Z63.4 [facility] [id number] [place] [address] Jun, Dental examination Z01.20 [facility] [id number] [place] [address] May, Generalized anxiety disorder F41.1 and Bereavement Z63.4 [facility] [id number] [place] [address] May, Encounter for immunization Z23 [facility] [id number] [place] [address] May, Generalized anxiety disorder F41.1 and Bereavement Z63.4 [facility] [id number] [place] [address] May, [facility] [id number] [place] [address] 24 Apr, 2018 Generalized anxiety disorder F41.1 and Bereavement Z63.4 [facility] [id number] [place] [address] 17 Apr, 2018 [facility] [id number] [place] [address] 13 Apr, 2018 Diverticulitis K57.92 [facility] [address], [place] [address] Apr, Generalized anxiety disorder F41.1 and Bereavement Z63.4 [facility] [address], [place] [address] Mar, [facility] [address] [place] [address] Mar, Diverticulitis K57.92 [facility] [id number] [place] [address] Mar, Generalized anxiety disorder F41.1 and Bereavement Z63.4 [facility] [id number] [place] [address] Mar, Hypertension I10 [facility] [id number] [place] [address] Mar, Generalized anxiety disorder F41.1 and Bereavement Z63.4 [facility] [id number] [place] [address] Feb, Generalized anxiety disorder F41.1 and Bereavement Z63.4 [facility] [id number] [place] [address] Feb, [facility] [address] [place] [address] Feb, Generalized anxiety disorder F41.1 and Bereavement Z63.4 [facility] [id number] [place] [address] Feb, Generalized anxiety disorder F41.1 and Bereavement Z63.4 [facility] [id number] [place] [address] Jan, Hypertension I10 and Acute non-recurrent maxillary sinusitis J01.00 [facility] [id number] [place] [address] December, [facility] [address] [facility] [id number] [address] December, Hypertension I10 [facility] [address] [id number], [place] [address] December, Generalized anxiety disorder F41.1 [facility] [address] [id number] [address] Oct, Encounter for dental examination Z01.20 [facility] [address] [id number] [address] Oct, Encounter for dental examination Z01.20 [facility] [id number] [place] [address] Oct, Dental examination Z01.20 [facility] [address] [id number], [place] [address] Oct, Generalized anxiety disorder F41.1 [facility] [id number] [place] [address] Aug, Dental examination Z01.20 [facility] [id number], [place] [address] Aug, Generalized anxiety disorder F41.1 [facility] [id number], [place] [address] Aug, [facility] [address] [id number] [address] Aug, Encounter for dental examination Z01.20 [facility] [address] [facility] [id number], [place] [address] Aug, Subacute maxillary sinusitis J01.00 [facility] [address] [id number] [address] Jul, Dental examination Z01.20 [facility] [id number], [place] [address] Jul, Generalized anxiety disorder F41.1 [facility] [address], [place] [address] Jul, Diverticulitis K57.92 [facility] [address], [place] [address] 28 Jun, 2017 Encounter for immunization Z23 [facility] [id number] [place] [address] Jun, Dental examination Z01.20 [facility] [id number] [place] [address] 14 Jun, 2017 Generalized anxiety disorder F41.1 [facility] [id number] [place] [address] 07 Jun, 2017 Dental examination Z01.20 [facility] [id number] [place] [address] May, [facility] [id number] [place] [id number] May, Dental examination Z01.20 [facility] [address] [id number] May, Dental examination Z01.20 [facility] [id number] [place] [address] May, Dental examination Z01.20 [facility] [address] [place] [address] May, [facility] [address] [place] [address] May, Generalized anxiety disorder F41.1 [facility] [id number] [place] [address] 05 May, 2017 Localized edema R60.0 ; Yeast vaginitis B37.3 and Gastroesophageal reflux disease with esophagitis K21.0 [facility] [id number] [place] [id number] Apr, Dental examination Z01.20 [facility] [address] [id number] [address] Apr, Dental examination Z01.20 [facility] [address] [id number] [place] [address] 05 Apr, 2017 Dental examination Z01.20 [facility] [address], [place] [address] Mar, Dyspepsia R10.13 [facility] [address], [place] [address] Mar, Generalized anxiety disorder F41.1 [facility] [address] [id number] [place] [address] Mar, Encounter for dental examination Z01.20 [facility] [id number] [place] [id number] Mar, [facility] [address] [id number] Mar, Dental examination Z01.20 [facility] [address], [place] [address] Feb, Hypertension I10 and Tachycardia R00.0 [facility] [address] [id number] [place] [address] Feb, [facility] [address], [place] [address] Feb, Generalized anxiety disorder F41.1 [facility] [address] [id number] [id number] Feb, Dental examination Z01.20 [facility] [id number], [place] [address] Jan, Generalized anxiety disorder F41.1 [facility] [id number], [place] [address] December, Generalized anxiety disorder F41.1 [facility] [address] [id number] December, Encounter for dental examination Z01.20 [facility] [id number] [place] [address] Nov, [facility] [id number] [place] [address] Nov, [facility] [id number] [place] [address] Nov, Generalized anxiety disorder F41.1 [facility] [id number] [place] [address] Oct, [facility] [address] [place] [id number] Oct, Dental examination Z01.20 [facility] [id number] [place] [address] Oct, Vaginal dryness N89.8 [facility] [id number] [place] [address] Oct, Pseudoseizures F44.5 [facility] [id number] [place] [address] Oct, Generalized anxiety disorder F41.1 [facility] [id number] [place] [address] Sep, Abnormal uterine bleeding (AUB) N93.9 ; Vaginal dryness N89.8 and Screening breast examination Z12.39 [facility] [address] [place] [address] Sep, Dental examination Z01.20 [facility] [id number] [place] [address] Sep, Generalized anxiety disorder F41.1 [facility] [address] [place] [address] Sep, Unspecified ovarian cyst, right side N83.201 ; Unspecified ovarian cyst, left side N83.202 ; Yeast infection of the vagina B37.3 ; Mitral valve prolapse I34.1 and Hypertension I10 [facility] [address], [place] [address] Aug, Generalized anxiety disorder F41.1 [facility] [id number] [place] [address] Jul, [facility] [id number] [place] [address] Jul, Generalized anxiety disorder F41.1 [facility] [id number] [place] [address] Jun, Generalized anxiety disorder F41.1 [id number] [place] [address] May, Encounter for immunization Z23 [facility] [id number] [place] [address] 17 May, 2016 Generalized anxiety disorder F41.1 and Depressive disorder, not elsewhere classified F32.9 [facility] [id number] [place] [address] 28 Apr, 2016 Hypertension I10 [facility] [id number] [place] [address] 22 Apr, 2016 Cervicalgia M54.2 [facility] [id number] [place] [address] 12 Apr, 2016 Cervicalgia M54.2 [facility] [id number] [place] [address] 09 Mar, 2016 Generalized anxiety disorder F41.1 and Depressive disorder, not elsewhere classified F32.9 [facility] [address] [place] [id number] 14 Feb, 2016 Visit for dental examination Z01.20 [facility] [address] [id number], [place] [address] 11 Feb, 2016 Pseudoseizures F44.5 ; Migraine without status migrainosus, not intractable, unspecified migraine type G43.909 and Essential hypertension I10 [facility] [address] [id number] 06 Feb, 2016 Dental examination Z01.20 [id number] [place] [address] Feb, Generalized anxiety disorder F41.1 and Depressive disorder, not elsewhere classified F32.9 [address] [id number] [place] [address] Jan, Tachycardia R00.0 [address] [id number] [place] [address] December, Eustachian tube dysfunction, bilateral H69.83 [address] [id number] [place] [address] December, Generalized anxiety disorder F41.1 and Depressive disorder, not elsewhere classified F32.9 [address] [place] [id number] [place] [address] Nov, [id number] [place] [address] Nov, [id number] [place] [address] Nov, Hypertension I10 ; Onychomycosis B35.1 ; [...] and Complex cyst of left ovary N83.29 [address] [place] [address] [address] 14 Nov, 2015 Sinusitis J32.9 [address] [place] [address] [address] Oct, Complex cyst of left ovary N83.29 [address] [address] Oct, Onychomycosis B35.1 [facility] [address] [id number] 17 Oct, 2015 Dental examination Z01.20 [address] [address] 09 Oct, 2015 Well woman exam Z01.419 [...] R92.2 and History of colon polyps Z86.010 [address] [place] [address] [address] Oct, Generalized anxiety disorder F41.1 and Depressive disorder, not elsewhere classified F32.9 [address] [place] [id number] [place] [address] Sep, Hypertension I10 and Onychomycosis B35.1 [address] [address] Sep, Skin tags, multiple acquired L91.8 [address] [address] Aug, [address] [address] Aug, [facility] [id number] [place] [address] Aug, [facility] [address] [address] Aug, Generalized anxiety disorder F41.1 and Depressive disorder, not elsewhere classified F32.9 [facility] [id number] [place] [address] Jul, Skin lesion L98.9 [facility] [address] [address] Jun, Generalized anxiety disorder F41.1 and Depressive disorder, not elsewhere classified F32.9 [address] [place] [id number] [place] [address] Jun, [place] [address] [address] Jun, Generalized anxiety disorder F41.1 [facility] [id number] [place] [address] May, Encounter for immunization Z23 and Right shoulder pain M25.511 [address] [place] [id number] [place] [address] Apr, [facility] [id number] [place] [address] Apr, Generalized anxiety disorder 300.02 and Depressive disorder, not elsewhere classified 311 [facility] [id number] [place] [id number] Mar, Dental examination V72.2 [facility] [id number] [place] [address] Mar, Generalized anxiety disorder 300.02 and Depressive disorder, not elsewhere classified 311 [facility] [id number] [place] [address] Mar, Depression, major, recurrent, 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.35 and 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 [facility] [address], [place] [address] Feb, Generalized anxiety disorder 300.02 and Depressive disorder, not elsewhere classified 311 [facility] [id number] [id number] 07 Feb, 2015 Dental examination V72.2 [facility] [address] [place] [address] Jan, Generalized anxiety disorder 300.02 and Depressive disorder, not elsewhere classified 311 [facility] [address] [place] [address] Jan, [facility] [address] [place] [address] December, Generalized anxiety disorder 300.02 and Depressive disorder, not elsewhere classified 311 [facility] [address] [place] [address] December, Major depressive disorder, recurrent, unspecified 296.30 and Panic disorder with agoraphobia 300.21 [facility] [address], [place] [address] Nov, [facility] [address], [place] [address] Nov, [facility] [address], [place] [address] Oct, [facility] [address], [place] [address] Oct, [facility] [address], [place] [address] Oct, [facility] [address], [place] [address] Oct, [facility] [address], [place] [address] Sep, [facility] [id number] [address] Sep, 2014 [facility] [place] [facility] [address] [id number] [place] [address] Sep, 2014 [facility] [place] [facility] [address] [id number] [place] [address] Sep, 2014 [facility] [place] [facility] [address] [id number] [place] [address] Sep, 2014 [facility] [place] [facility] [address] [id number] [place] [address] Sep, 2014 [facility] [place] [facility] [address] [id number] [place] [address] Sep, 2014 [facility] [place] [facility] [address] [facility] [id number] [place] [address] Sep, 2014 [facility] [place] [facility] [address] [facility] [id number] [place] [address] Sep, 2014 [facility] [place] [facility] [address] [facility] [id number] [place] [address] Sep, 2014 [facility] [place] [facility] [address] [facility] [id number] [place] [address] Aug, [facility] [place] [facility] [address] [facility] [id number] [place] [address] Aug, [facility] [place] [facility] [address] [id number] [place] [address] Jul, [facility] [place] [facility] [address] [id number] [place] [address] Jul, [facility] [place] [facility] [address] [id number] [place] [address] Jul, [facility] [place] [facility] [address] [facility] [id number] [place] [address] Jul, [facility] [place] [facility] [address] [facility] [id number] [place] [address] Jul, [facility] [place] [facility] [address] [id number] [place] [address] Jul, [facility] [place] [facility] [address] [id number] [place] [address] Jul, [facility] [place] [facility] [address] [id number] [place] [address] Jul, [facility] [place] [facility] [address] [id number] [place] [address] Jul, [facility] [place] [facility] [address] [id number] [place] [address] Jul, [facility] [place] [facility] [address] [id number] [place] [address] Jul, [facility] [place] [facility] [address] [id number] [place] [address] Jul, [facility] [place] [facility] [address] [id number] [place] [address] Jun, [facility] [place] [facility] [address] [id number] [place] [address] Jun, [facility] [place] [facility] [address] [id number] [place] [address] May, [facility] [place] [facility] [address] [id number] [place] [address] May, [facility] [place] [facility] [address] [id number], [place] [address] May, [facility] [place] [facility] [address] [id number] [place] [address] May, [facility] [place] [facility] [address] [id number] [place] [address] May, [facility] [place] [facility] [address] [id number] [place] [address] May, [facility] [place] [facility] [address] [id number] [place] [address] May, 2013 [facility] [place] [facility] [address] [id number] [place] [address] May, [facility] [place] [facility] [address] [id number] [place] [address] May, [facility] [place] [facility] [address] [id number] [place] [address] May, [facility] [place] [facility] [address] [id number] [place] [address] May, [facility] [place] [facility] [address] [id number] [place] [address] May, [facility] [facility] [address] [id number] [place] [address] Apr, [facility] [place] [facility] [address] [id number] [place] [address] 30 Apr, 2013 [facility] [place] [facility] [address] [id number] [place] [address] Apr, [facility] [place] [facility] [address] [id number] [place] [address] Apr, [facility] [place] [facility] [address] [id number] [place] [address] Apr, [facility] [place] [facility] [address] [id number] [place] [address] Apr, 2013 [facility] [place] [facility] [address] [id number] [place] [address] Feb, [facility] [place] [facility] [address] [id number] [place] [address] Feb, [facility] [place] [facility] [address] [id number] [place] [address] Feb, [facility] [place] [facility] [address] [id number] [place] [address] Feb, [facility] [place] [facility] [address] [id number] [place] [address] Feb, [facility] [place] [facility] [address] [id number] [place] [address] Feb, [facility] [place] [facility] [address] [id number] [place] [address] Jan, [facility] [place] [facility] [address] [id number] [place] [address] Jan, [facility] [place] [facility] [address] [id number] [place] [address] Jan, [facility] [place] [facility] [address] [id number] [place] [address] Jan, [facility] [place] [facility] [address] [id number] [place] [address] Jan, [facility] [place] [facility] [address] [id number] [place] [address] Jan, [facility] [place] [facility] [address] [id number] [place] [address] Jan, [facility] [place] [facility] [address] [id number] [place] [address] Jan, [facility] [place] [facility] [address] [id number] [place] [address] December, [facility] [place] [facility] [address] [id number], [place] [address] December, [facility] [place] [facility] [address] [id number] [place] [address] December, [facility] [place] [facility] [address] [id number] [place] [address] December, [facility] [place] [facility] [address] [id number] [place] [address] Nov, [facility] [place] [facility] [address] [id number], [place] [address] Nov, [facility] [place] [facility] [address] [id number] [place] [address] Nov, [facility] [place] [facility] [address] [id number] [place] [address] Nov, [facility] [place] [facility] [address] [id number] [place] [address] Nov, [facility] [place] [facility] [address] [id number] [place] [address] Nov, [facility] [place] [facility] [address] [id number] [place] [address] Nov, [facility] [place] [address] [facility] [id number] [place] [address] Nov, [facility] [address] [facility] [id number] [place] [address] Oct, [facility] [place] [facility] [address] [facility] [id number] [place] [address] Oct, [facility] [place] [address] [id number] [address] Sep, [facility] [address] [facility] [id number] [place] [address] Sep, [facility] [address] [id number] [place] [id number] Sep, [facility] [place] [facility] [address] [facility] [id number], [place] [address] Sep, [facility] [place] [facility] [address] [facility] [id number] [place] [address] Sep, [facility] [place] [facility] [address] [facility] [id number] [place] [address] Sep, [facility] [address] [facility] [id number], [place] [address] Aug, [facility] [address] [id number] [place] [address] Aug, [facility] [address] [id number] [place] [address] Aug, [facility] [address] [id number] [place] [address] Aug, [facility] [address] [id number] [place] [address] Jul, [facility] [address] [id number] [place] [address] Jul, [facility] [address] [id number] [place] [address] Jul, [facility] [address] [id number] [place] [address] Jul, [facility] [address] [id number] [place] [address] Jun, [facility] [address] [id number] [place] [address] Jun, [facility] [address] [id number] [place] [address] May, [facility] [address] [id number] [place] [address] May, [facility] [address] [id number], [place] [address] May, [facility] [address] [id number] [place] [address] May, [facility] [address] [id number] [place] [address] 10 May, 2013 [facility] [address] [id number] [place] [address] 17 Apr, 2013 [facility] [address] [id number] [place] [address] Apr, [facility] [address] [id number] [place] [address] Mar, [facility] [address] [id number] [place] [address] Mar, [facility] [address] [id number] [place] [address] Mar, [facility] [address] [id number] [place] [address] Mar, [facility] [address] [id number] [place] [address] Feb, [facility] [address] [id number] [place] [address] Feb, [facility] [address] [id number] [place] [address] Feb, [facility] [address] [id number] [place] [address] Feb, [facility] [address] [id number] [place] [address] Feb, [facility] [address] [id number] [place] [address] Jan, [facility] [address] [id number] [place] [address] Jan, [facility] [address] [id number] [place] [address] Jan, [facility] [address] [id number] [place] [address] Jan, [facility] [address] [id number] [place] [address] Jan, [facility] [address] [id number] [place] [address] December, [facility] [address] [id number] [place] [address] December, [facility] [address] [id number] [place] [address] Nov, [facility] [address] [id number] [place] [address] Nov, [facility] [address] [id number] [place] [address] Oct, [facility] [address] [id number] [place] [address] Oct, [facility] [address] [id number] [place] [address] 05 Oct, 2012 [facility] [address] [id number] [place] [address] 14 Sep, 2012 [facility] [address] [id number] [place] [address] 24 Aug, 2012 [facility] [address] [id number] [place] [address] Aug, [facility] [address] [id number] [place] [address] Aug, [facility] [address] [id number] [place] [address] Aug, [facility] [address] [id number] [place] [address] Jul, [facility] [address] [id number] [place] [address] Jul, [facility] [address] [id number] [place] [address] Jul, [facility] [address] [id number] [place] [address] Jul, [facility] [address] [id number] [place] [address] Jul, [facility] [address] [id number] [place] [address] Jul, [facility] [address] [id number] [place] [address] Jul, [facility] [address] [id number] [place] [address] Jul, [facility] [address] [id number] [place] [address] Jun, [facility] [facility] [address] [id number] [place] [address] Jun, [facility] [facility] [address] [id number] [place] [address] Jun, [facility] [facility] [address] [id number] [place] [address] Jun, [facility] [facility] [address] [id number] [place] [address] Jun, [facility] [facility] [address] [id number] [place] [address] Jun, [facility] [address] [facility] [id number], [place] [address] May, [facility] [address] [id number], [place] [address] May, [facility] [address] [id number], [place] [address] May, [facility] [address] [id number] [place] [address] May, [facility] [address] [id number], [place] [address] Apr, [facility] [address] [id number], [place] [address] Apr, [facility] [address] [id number] [place] [address] 08 Mar, 2012 [facility] [address] [id number] [place] [address] 28 Jan, 2012 [facility] [facility] [address] [id number] [place] [address] 20 Jan, 2012 [facility] [address] [id number] [place] [address] 16 Jan, 2012 [facility] [address] [id number] [place] [address] 15 Jan, 2012 [facility] [place] [facility] [address] [id number] [place] [address] 14 Jan, 2012 [facility] [facility] [address] [id number] [place] [address] 14 Jan, 2012 [facility] [address] [id number] [place] [address] 07 Jan, 2012 [facility] [facility] [address] [id number] [place] [address] December, [facility] [place] [facility] [address] [id number] [place] [address] December, [facility] [place] [facility] [address] [id number] [place] [address] December, [facility] [place] [facility] [address] [id number] [place] [address] December, [facility] [place] [facility] [address] [id number] [place] [address] Nov, [facility] [place] [facility] [address] [id number] [place] [address] 05 Nov, 2011 [facility] [place] [facility] [address] [id number] [place] [address] 29 Oct, 2011 [facility] [place] [facility] [address] [id number] [place] [address] Oct, [facility] [place] [facility] [address] [id number] [place] [address] Oct, [facility] [address] [id number] [place] [address] Sep, [facility] [facility] [address] [id number] [place] [address] Sep, [facility] [address] [id number] [place] [address] Sep, [facility] [address] [id number] [place] [address] Aug, [facility] [address] [id number] [place] [address] Aug, [facility] [address] [id number] [place] [address] Aug, [facility] [address] [id number] [place] [address] Aug, [facility] [address] [id number] [place] [address] Aug, [facility] [address] [id number] [place] [address] Aug, [facility] [address] [id number] [place] [address] Aug, [facility] [address] [id number] [place] [address] Jul, [facility] [place] [facility] [address] [id number] [place] [address] Jul, [facility] [place] [facility] [address] [id number] [place] [address] Jun, [facility] [address] [id number] [place] [address] Jun, [facility] [place] [facility] [address] [id number] [place] [address] 17 Jun, 2011 [facility] [place] [facility] [address] [id number] [place] [address] 15 Jun, 2011 [facility] [place] [facility] [address] [id number] [place] [address] Jun, [facility] [place] [facility] [address] [id number] [place] [address] Jun, [facility] [place] [facility] [address] [id number] [place] [address] Jun, [facility] [place] [facility] [address] [id number] [place] [address] Jun, [facility] [place] [facility] [address] [id number] [place] [address] Jun, [facility] [place] [facility] [address] [id number] [place] [address] Jun, [facility] [place] [facility] [address] [id number] [place] [address] May, [facility] [place] [facility] [address] [id number] [place] [address] May, [facility] [place] [facility] [address] [id number] [place] [address] May, [facility] [place] [facility] [address] [id number], [place] [address] 24 May, 2011 [facility] [place] [facility] [address] [id number], [place] [address] 18 May, 2011 [facility] [place] [facility] [address] [id number] [place] [address] May, [facility] [place] [facility] [address] [id number] [place] [address] Feb, [facility] [place] [facility] [address] [id number] [place] [address] December, [facility] [place] [facility] [id number], [place] [address] Jul, [facility] [id number], [place] [address] Jul, [facility] [id number], [place] [address] Jul, [facility] [id number], [place] [address] Jul, [facility] [id number], [place] [address] Jun, [facility] [id number] [place] [address] Jul, [facility] [id number], [place] [address] Jul, [facility] [id number] [place] [address] Jul, [facility] [id number], [place] [address] Jul, [facility] [id number] [place] [address] Jul, [facility] [id number], [place] [address] Jul, [facility] [id number], [place] [address] Jan, [facility] [address] [id number], [place] [address] Sep, [facility] [id number], [place] [address] Sep, IMMUNIZATIONS No Known Immunizations SOCIAL HISTORY Never Assessed REASON FOR VISIT EMR-[facility] [place] PLAN OF CARE VITAL SIGNS MEDICATIONS [...]
--- OUTSIDE RECORDS SUMMARY | 2019-01-22 20:33 | XMS REPORT ---
Author Author Migration, Doctor Organization [facility] Address Unknown Phone Unavailable Care Team Providers Care Ostomy Rn Name Role Phone Migration, Doctor Unavailable Unavailable PROBLEMS Type Condition ICD9-CM Code RHS53-EY Code Onset Dates Condition Status SNOMED Code Problem Hypertension I10 Active 43645719 Problem Generalized anxiety disorder F41.1 Active 438560037 Problem History of colon polyps Z86.010 Active 651234344 Problem History of diverticulitis Z87.19 Active 001542232520224 Problem Family history of diabetes mellitus Z83.3 Active 029437000 Problem Excessive and frequent menstruation with irregular cycle N92.1 Active 873789598 Problem Hot flashes N95.1 Active 374375672 Problem Gastroesophageal reflux disease with esophagitis K21.0 Active 416120140 Problem History of ovarian cyst Z87.42 Active 73006095 Problem Diverticulitis K57.92 Active 760003761 Problem Dense breast tissue R92.2 Active 294948776 Problem Perimenopausal N95.1 Active 990740387047863 Problem Mitral valve prolapse I34.1 Active 785004674 Problem Abnormal uterine bleeding (AUB) N93.9 Active 77765461125778 Problem Tachycardia R00.0 Active 9760327 ALLERGIES No Information ENCOUNTERS Encounter Location Date Diagnosis [facility] [address] [id number] [address] Jan, [facility] [id number] [place] [address] December, [facility] [id number] [place] [address] December, [facility] [address], [place] [address] Nov, Diverticulitis K57.92 [facility] [id number] [address] Nov, Generalized anxiety disorder F41.1 and Bereavement Z63.4 [facility] [address], [place] [address] Nov, Generalized anxiety disorder F41.1 and Bereavement Z63.4 [facility] [address], [place] [address] Nov, Diverticulitis K57.92 [facility] [address] [place] [address] Oct, Diverticulitis K57.92 [facility] [address] [place] [address] Oct, Diverticulitis K57.92 [facility] [id number] [place] [address] Oct, Generalized anxiety disorder F41.1 [facility] [id number] [place] [address] Oct, Right lower quadrant abdominal pain R10.31 and Diverticulitis K57.92 [facility] [id number] [place] [address] Sep, Generalized anxiety disorder F41.1 and Bereavement Z63.4 [facility] [address], [place] [address] Aug, [facility] [id number] [place] [address] Aug, Generalized anxiety disorder F41.1 and Bereavement Z63.4 [facility] [address] [id number] [address] Aug, Caries K02.9 [facility] [address] [address] Jul, Generalized anxiety disorder F41.1 and Bereavement Z63.4 [facility] [address] [place] [address] Jul, Other acute gastritis without hemorrhage K29.00 ; Generalized anxiety disorder F41.1 ; Tachycardia R00.0 and Essential hypertension I10 [facility] [id number] [place] [address] Jul, Generalized anxiety disorder F41.1 and Bereavement Z63.4 [facility] [id number] [place] [address] Jun, Generalized anxiety disorder F41.1 and Bereavement Z63.4 [facility] [id number] [place] [address] Jun, Generalized anxiety disorder F41.1 and Bereavement Z63.4 [facility] [id number] [place] [address] Jun, Dental examination Z01.20 [facility] [id number] [place] [address] May, Generalized anxiety disorder F41.1 and Bereavement Z63.4 [facility] [id number] [place] [address] May, Encounter for immunization Z23 [facility] [id number] [place] [address] May, Generalized anxiety disorder F41.1 and Bereavement Z63.4 [facility] [id number] [place] [address] May, [facility] [id number] [place] [address] 24 Apr, 2018 Generalized anxiety disorder F41.1 and Bereavement Z63.4 [facility] [id number] [place] [address] 17 Apr, 2018 [facility] [id number] [place] [address] 13 Apr, 2018 Diverticulitis K57.92 [facility] [address], [place] [address] Apr, Generalized anxiety disorder F41.1 and Bereavement Z63.4 [facility] [address] [address] Mar, [facility] [id number] [place] [address] Mar, Diverticulitis K57.92 [facility] [id number] [place] [address] Mar, Generalized anxiety disorder F41.1 and Bereavement Z63.4 [facility] [id number] [place] [address] Mar, Hypertension I10 [facility] [id number] [place] [address] Mar, Generalized anxiety disorder F41.1 and Bereavement Z63.4 [facility] [id number] [place] [address] Feb, Generalized anxiety disorder F41.1 and Bereavement Z63.4 [facility] [id number] [place] [address] Feb, [facility] [id number] [place] [address] Feb, Generalized anxiety disorder F41.1 and Bereavement Z63.4 [facility] [id number] [place] [address] Feb, Generalized anxiety disorder F41.1 and Bereavement Z63.4 [facility] [id number] [place] [address] Jan, Hypertension I10 and Acute non-recurrent maxillary sinusitis J01.00 [facility] [id number] [place] [address] December, [facility] [address] [facility] [id number] [address] December, Hypertension I10 [facility] [address] [id number], [place] [address] December, Generalized anxiety disorder F41.1 [facility] [address] [id number], [place] [address] Oct, Encounter for dental examination Z01.20 [facility] [address] [id number], [place] [address] Oct, Encounter for dental examination Z01.20 [facility] [id number] [place] [address] Oct, Dental examination Z01.20 [facility] [address] [id number], [place] [address] Oct, Generalized anxiety disorder F41.1 [facility] [id number] [place] [address] Aug, Dental examination Z01.20 [facility] [id number], [place] [address] Aug, Generalized anxiety disorder F41.1 [facility] [id number] [address] Aug, [facility] [address] [id number], [place] [address] Aug, Encounter for dental examination Z01.20 [facility] [address] [facility] [id number], [place] [address] Aug, Subacute maxillary sinusitis J01.00 [facility] [address] [id number], [place] [address] Jul, Dental examination Z01.20 [facility] [id number], [place] [address] Jul, Generalized anxiety disorder F41.1 [facility] [address], [place] [address] Jul, Diverticulitis K57.92 [facility] [address] [address] 28 Jun, 2017 Encounter for immunization Z23 [facility] [id number] [place] [address] Jun, Dental examination Z01.20 [facility] [id number] [place] [address] 14 Jun, 2017 Generalized anxiety disorder F41.1 [facility] [id number] [place] [address] 07 Jun, 2017 Dental examination Z01.20 [facility] [id number] [place] [address] May, [facility] [id number] [place] [id number] May, Dental examination Z01.20 [facility] [address] [id number] May, Dental examination Z01.20 [facility] [id number] [place] [address] May, Dental examination Z01.20 [facility] [id number] [place] [address] May, [facility] [id number] [place] [address] May, Generalized anxiety disorder F41.1 [facility] [id number] [place] [address] 05 May, 2017 Localized edema R60.0 ; Yeast vaginitis B37.3 and Gastroesophageal reflux disease with esophagitis K21.0 [facility] [id number] [place] [id number] Apr, Dental examination Z01.20 [facility] [address] [id number], [place] [address] Apr, Dental examination Z01.20 [facility] [address] [id number], [place] [address] 05 Apr, 2017 Dental examination Z01.20 [facility] [address], [place] [address] Mar, Dyspepsia R10.13 [facility] [address], [place] [address] Mar, Generalized anxiety disorder F41.1 [facility] [address] [id number], [place] [address] Mar, Encounter for dental examination Z01.20 [facility] [id number] [place] [id number] Mar, [facility] [address] [id number] Mar, Dental examination Z01.20 [facility] [address], [place] [address] Feb, Hypertension I10 and Tachycardia R00.0 [facility] [address] [id number], [place] [address] Feb, [facility] [address], [place] [address] Feb, Generalized anxiety disorder F41.1 [facility] [address] [id number] [id number] Feb, Dental examination Z01.20 [facility] [id number] [address] Jan, Generalized anxiety disorder F41.1 [facility] [id number] [address] December, Generalized anxiety disorder F41.1 [facility] [address] [address] December, Encounter for dental examination Z01.20 [facility] [id number] [place] [address] Nov, [facility] [id number] [place] [address] Nov, [facility] [id number] [place] [address] Nov, Generalized anxiety disorder F41.1 [facility] [id number] [place] [address] Oct, [facility] [id number] [place] [id number] Oct, Dental examination Z01.20 [facility] [id number] [place] [address] Oct, Vaginal dryness N89.8 [facility] [id number] [place] [address] Oct, Pseudoseizures F44.5 [facility] [id number] [place] [address] Oct, Generalized anxiety disorder F41.1 [facility] [id number] [place] [address] Sep, Abnormal uterine bleeding (AUB) N93.9 ; Vaginal dryness N89.8 and Screening breast examination Z12.39 [facility] [address] [place] [address] Sep, Dental examination Z01.20 [facility] [id number] [place] [address] Sep, Generalized anxiety disorder F41.1 [facility] [id number] [place] [address] Sep, Unspecified ovarian cyst, right side N83.201 ; Unspecified ovarian cyst, left side N83.202 ; Yeast infection of the vagina B37.3 ; Mitral valve prolapse I34.1 and Hypertension I10 [facility] [address], [place] [address] Aug, Generalized anxiety disorder F41.1 [facility] [id number] [place] [address] Jul, [facility] [id number] [place] [address] Jul, Generalized anxiety disorder F41.1 [facility] [id number] [place] [address] Jun, Generalized anxiety disorder F41.1 [facility] [id number] [place] [address] May, Encounter for immunization Z23 [facility] [id number] [place] [address] 17 May, 2016 Generalized anxiety disorder F41.1 and Depressive disorder, not elsewhere classified F32.9 [facility] [id number] [place] [address] 28 Apr, 2016 Hypertension I10 [facility] [id number] [place] [address] 22 Apr, 2016 Cervicalgia M54.2 [facility] [id number] [place] [address] 12 Apr, 2016 Cervicalgia M54.2 [facility] [id number] [place] [address] 09 Mar, 2016 Generalized anxiety disorder F41.1 and Depressive disorder, not elsewhere classified F32.9 [facility] [id number] [place] [id number] 14 Feb, 2016 Visit for dental examination Z01.20 [facility] [id number], [place] [address] 11 Feb, 2016 Pseudoseizures F44.5 ; Migraine without status migrainosus, not intractable, unspecified migraine type G43.909 and Essential hypertension I10 [facility] [address] [id number] 06 Feb, 2016 Dental examination Z01.20 [facility] [id number] [place] [address] Feb, Generalized anxiety disorder F41.1 and Depressive disorder, not elsewhere classified F32.9 [facility] [id number] [place] [address] Jan, Tachycardia R00.0 [facility] [id number] [place] [address] December, Eustachian tube dysfunction, bilateral H69.83 [facility] [id number] [place] [address] December, Generalized anxiety disorder F41.1 and Depressive disorder, not elsewhere classified F32.9 [facility] [id number] [place] [address] Nov, [facility] [id number] [place] [address] Nov, [facility] [id number] [place] [address] Nov, Hypertension I10 ; Onychomycosis B35.1 ; [...] and Complex cyst of left ovary N83.29 [facility] [address] [address] 14 Nov, 2015 Sinusitis J32.9 [facility] [address] [address] Oct, Complex cyst of left ovary N83.29 [facility] [address] [address] Oct, Onychomycosis B35.1 [facility] [address] [id number] 17 Oct, 2015 Dental examination Z01.20 [facility] [address] [address] 09 Oct, 2015 Well woman exam Z01.419 [...] R92.2 and History of colon polyps Z86.010 [facility] [address] [address] Oct, Generalized anxiety disorder F41.1 and Depressive disorder, not elsewhere classified F32.9 [facility] [id number] [place] [address] Sep, Hypertension I10 and Onychomycosis B35.1 [facility] [address] [address] Sep, Skin tags, multiple acquired L91.8 [facility] [address] [address] Aug, [facility] [address] [address] Aug, [facility] [id number] [place] [address] Aug, [facility] [address] [address] Aug, Generalized anxiety disorder F41.1 and Depressive disorder, not elsewhere classified F32.9 [facility] [id number] [place] [address] Jul, Skin lesion L98.9 [facility] [address] [address] Jun, Generalized anxiety disorder F41.1 and Depressive disorder, not elsewhere classified F32.9 [facility] [id number] [place] [address] Jun, [facility] [address] [address] Jun, Generalized anxiety disorder F41.1 [facility] [id number] [place] [address] May, Encounter for immunization Z23 and Right shoulder pain M25.511 [facility] [id number] [place] [address] Apr, [facility] [id number] [place] [address] Apr, Generalized anxiety disorder 300.02 and Depressive disorder, not elsewhere classified 311 [facility] [id number] [place] [id number] Mar, Dental examination V72.2 [facility] [id number] [place] [address] Mar, Generalized anxiety disorder 300.02 and Depressive disorder, not elsewhere classified 311 [facility] [id number] [place] [address] Mar, Depression, major, recurrent, 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.35 and 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 [facility] [address] [address] Feb, Generalized anxiety disorder 300.02 and Depressive disorder, not elsewhere classified 311 [facility] [id number] [id number] 07 Feb, 2015 Dental examination V72.2 [facility] [address] [place] [address] Jan, Generalized anxiety disorder 300.02 and Depressive disorder, not elsewhere classified [address] [facility] [id number] [place] [address] Jan, [facility] [address] [place] [address] December, Generalized anxiety disorder 300.02 and Depressive disorder, not elsewhere classified 311 [facility] [address] [place] [address] December, Major depressive disorder, recurrent, unspecified 296.30 and Panic disorder with agoraphobia 300.21 [facility] [address] [address] Nov, [facility] [address] [address] Nov, [facility] [address] [address] Oct, [facility] [address] [address] Oct, [facility] [address], [place] [address] Oct, [facility] [address], [place] [address] Oct, [facility] [address], [place] [address] Sep, [facility] [id number] [address] Sep, 2014 [facility] [place] [facility] [address] [id number] [place] [address] Sep, 2014 [facility] [place] [facility] [address] [id number] [place] [address] Sep, 2014 [facility] [place] [facility] [address] [id number] [place] [address] Sep, 2014 [facility] [place] [facility] [address] [id number] [place] [address] Sep, 2014 [facility] [place] [facility] [address] [id number] [place] [address] Sep, 2014 [facility] [place] [facility] [address] [facility] [id number] [place] [address] Sep, 2014 [facility] [place] [facility] [address] [facility] [id number] [place] [address] Sep, 2014 [facility] [place] [facility] [address] [facility] [id number] [place] [address] Sep, 2014 [facility] [place] [facility] [address] [facility] [id number] [place] [address] Aug, [facility] [place] [facility] [address] [facility] [id number] [place] [address] Aug, [facility] [place] [facility] [address] [id number] [place] [address] Jul, [facility] [place] [facility] [address] [id number] [place] [address] Jul, [facility] [place] [facility] [address] [id number] [place] [address] Jul, [facility] [place] [facility] [address] [facility] [id number] [place] [address] Jul, [facility] [place] [facility] [address] [facility] [id number] [place] [address] Jul, [facility] [place] [facility] [address] [id number] [place] [address] Jul, [facility] [place] [facility] [address] [id number] [place] [address] Jul, [facility] [place] [facility] [address] [id number] [place] [address] Jul, [facility] [place] [facility] [address] [id number] [place] [address] Jul, [facility] [place] [facility] [address] [id number] [place] [address] Jul, [facility] [place] [facility] [address] [id number] [place] [address] Jul, [facility] [place] [facility] [address] [id number] [place] [address] Jul, [facility] [place] [facility] [address] [id number] [place] [address] Jun, [facility] [place] [facility] [address] [id number] [place] [address] Jun, [facility] [place] [facility] [address] [id number] [place] [address] May, [facility] [place] [facility] [address] [id number] [place] [address] May, [facility] [place] [facility] [address] [id number], [place] [address] May, [facility] [place] [facility] [address] [id number] [place] [address] May, [facility] [place] [facility] [address] [id number] [place] [address] May, [facility] [place] [facility] [address] [id number] [place] [address] May, [facility] [place] [facility] [address] [id number] [place] [address] May, 2013 [facility] [place] [facility] [address] [id number] [place] [address] May, [facility] [place] [facility] [address] [id number] [place] [address] May, [facility] [place] [facility] [address] [id number] [place] [address] May, [facility] [place] [facility] [address] [id number] [place] [address] May, [facility] [place] [facility] [address] [id number] [place] [address] May, [facility] [place] [facility] [address] [id number] [place] [address] Apr, [facility] [place] [facility] [address] [id number] [place] [address] 30 Apr, 2013 [facility] [place] [facility] [address] [id number] [place] [address] Apr, [facility] [place] [facility] [address] [id number] [place] [address] Apr, [facility] [place] [facility] [address] [id number] [place] [address] Apr, [facility] [place] [facility] [address] [id number] [place] [address] Apr, 2013 [facility] [place] [facility] [address] [id number] [place] [address] Feb, [facility] [place] [facility] [address] [id number] [place] [address] Feb, [facility] [place] [facility] [address] [id number] [place] [address] Feb, [facility] [place] [facility] [address] [id number] [place] [address] Feb, [facility] [place] [facility] [address] [id number] [place] [address] Feb, [facility] [place] [facility] [address] [id number] [place] [address] Feb, [facility] [place] [facility] [address] [id number] [place] [address] Jan, [facility] [place] [facility] [address] [id number] [place] [address] Jan, [facility] [place] [facility] [address] [id number] [place] [address] Jan, [facility] [place] [facility] [address] [id number] [place] [address] Jan, [facility] [place] [facility] [address] [id number] [place] [address] Jan, [facility] [place] [facility] [address] [id number] [place] [address] Jan, [facility] [place] [facility] [address] [id number] [place] [address] Jan, [facility] [place] [facility] [address] [id number] [place] [address] Jan, [facility] [place] [facility] [address] [id number] [place] [address] December, [facility] [place] [facility] [address] [id number], [place] [address] December, [facility] [place] [facility] [address] [id number] [place] [address] December, [facility] [place] [facility] [address] [id number] [place] [address] December, [facility] [place] [facility] [address] [id number] [place] [address] Nov, [facility] [place] [facility] [address] [id number], [place] [address] Nov, [facility] [place] [facility] [address] [id number] [place] [address] Nov, [facility] [place] [facility] [address] [id number] [place] [address] Nov, [facility] [place] [facility] [address] [id number] [place] [address] Nov, [facility] [place] [facility] [address] [id number] [place] [address] Nov, [facility] [place] [facility] [address] [id number] [place] [address] Nov, [facility] [place] [facility] [address] [facility] [id number] [place] [address] Nov, [facility] [address] [facility] [id number] [place] [address] Oct, [facility] [place] [facility] [address] [facility] [id number] [place] [address] Oct, [facility] [place] [facility] [address] [id number] [address] Sep, [facility] [place] [facility] [address] [facility] [id number] [place] [address] Sep, [facility] [place] [facility] [address] [id number] [id number] Sep, [facility] [place] [facility] [address] [facility] [id number], [place] [address] Sep, [facility] [place] [facility] [address] [facility] [id number] [place] [address] Sep, [facility] [place] [facility] [address] [facility] [id number] [place] [address] Sep, [facility] [place] [facility] [address] [facility] [id number], [place] [address] Aug, [facility] [place] [facility] [address] [id number] [place] [address] Aug, [facility] [place] [facility] [address] [id number] [place] [address] Aug, [facility] [place] [facility] [address] [id number] [place] [address] Aug, [facility] [place] [facility] [address] [id number] [place] [address] Jul, [facility] [address] [id number] [place] [address] Jul, [facility] [place] [facility] [address] [id number] [place] [address] Jul, [facility] [address] [id number] [place] [address] Jul, [facility] [place] [facility] [address] [id number] [place] [address] Jun, [facility] [place] [facility] [address] [id number] [place] [address] Jun, [facility] [place] [facility] [address] [id number] [place] [address] May, [facility] [place] [facility] [address] [id number] [place] [address] May, [facility] [place] [facility] [address] [id number], [place] [address] May, [facility] [place] [facility] [address] [id number] [place] [address] May, [facility] [place] [facility] [address] [id number] [place] [address] 10 May, 2013 [facility] [place] [facility] [address] [id number] [place] [address] 17 Apr, 2013 [facility] [place] [facility] [address] [id number] [place] [address] Apr, [facility] [place] [facility] [address] [id number] [place] [address] Mar, [facility] [place] [facility] [address] [id number] [place] [address] Mar, [facility] [place] [facility] [address] [id number] [place] [address] Mar, [facility] [place] [facility] [address] [id number] [place] [address] Mar, [facility] [place] [facility] [address] [id number] [place] [address] Feb, [facility] [place] [facility] [address] [id number] [place] [address] Feb, [facility] [place] [facility] [address] [id number] [place] [address] Feb, [facility] [place] [facility] [address] [id number] [place] [address] Feb, [facility] [place] [facility] [address] [id number] [place] [address] Feb, [facility] [place] [facility] [address] [id number] [place] [address] Jan, [facility] [place] [facility] [address] [id number] [place] [address] Jan, [facility] [place] [facility] [address] [id number] [place] [address] Jan, [facility] [place] [facility] [address] [id number] [place] [address] Jan, [facility] [place] [facility] [address] [id number] [place] [address] Jan, [facility] [place] [facility] [address] [id number] [place] [address] December, [facility] [place] [facility] [address] [id number] [place] [address] December, [facility] [address] [id number] [place] [address] Nov, [facility] [address] [id number] [place] [address] Nov, [facility] [address] [id number] [place] [address] Oct, [facility] [address] [id number] [place] [address] Oct, [facility] [address] [id number] [place] [address] 05 Oct, 2012 [facility] [address] [id number] [place] [address] 14 Sep, 2012 [facility] [address] [id number] [place] [address] 24 Aug, 2012 [facility] [address] [id number] [place] [address] Aug, [facility] [address] [id number] [place] [address] Aug, [facility] [address] [id number] [place] [address] Aug, [facility] [address] [id number] [place] [address] Jul, [facility] [address] [id number] [place] [address] Jul, [facility] [address] [id number] [place] [address] Jul, [facility] [address] [id number] [place] [address] Jul, [facility] [address] [id number] [place] [address] Jul, [facility] [place] [facility] [address] [id number] [place] [address] Jul, [facility] [place] [facility] [address] [id number] [place] [address] Jul, [facility] [place] [facility] [address] [id number] [place] [address] Jul, [facility] [place] [facility] [address] [id number] [place] [address] Jun, [facility] [place] [facility] [address] [id number] [place] [address] Jun, [facility] [place] [facility] [address] [id number] [place] [address] Jun, [facility] [place] [facility] [address] [id number] [place] [address] Jun, [facility] [place] [facility] [address] [id number] [place] [address] Jun, [facility] [place] [facility] [address] [id number] [place] [address] Jun, [facility] [place] [facility] [address] [facility] [id number], [place] [address] May, [facility] [place] [facility] [address] [id number], [place] [address] May, [facility] [place] [facility] [address] [id number], [place] [address] May, [facility] [place] [facility] [address] [id number] [place] [address] May, [facility] [place] [facility] [address] [id number], [place] [address] Apr, [facility] [place] [facility] [address] [id number], [place] [address] Apr, [facility] [place] [facility] [address] [id number] [place] [address] 08 Mar, 2012 [facility] [place] [facility] [address] [id number] [place] [address] 28 Jan, 2012 [facility] [place] [facility] [address] [id number] [place] [address] 20 Jan, 2012 [facility] [place] [facility] [address] [id number] [place] [address] 16 Jan, 2012 [facility] [place] [facility] [address] [id number] [place] [address] 15 Jan, 2012 [facility] [place] [facility] [address] [id number] [place] [address] 14 Jan, 2012 [facility] [place] [facility] [address] [id number] [place] [address] 14 Jan, 2012 [facility] [address] [id number] [place] [address] 07 Jan, 2012 [facility] [place] [facility] [address] [id number] [place] [address] December, [facility] [place] [facility] [address] [id number] [place] [address] December, [facility] [place] [facility] [address] [id number] [place] [address] December, [facility] [place] [facility] [address] [id number] [place] [address] December, [facility] [place] [facility] [address] [id number] [place] [address] Nov, [facility] [place] [facility] [address] [id number] [place] [address] 05 Nov, 2011 [facility] [place] [facility] [address] [id number] [place] [address] 29 Oct, 2011 [facility] [place] [facility] [address] [id number] [place] [address] Oct, [facility] [place] [facility] [address] [id number] [place] [address] Oct, [facility] [address] [id number] [place] [address] Sep, [facility] [place] [facility] [address] [id number] [place] [address] Sep, [facility] [address] [id number] [place] [address] Sep, [facility] [address] [id number] [place] [address] Aug, [facility] [address] [id number] [place] [address] Aug, [facility] [address] [id number] [place] [address] Aug, [facility] [address] [id number] [place] [address] Aug, [facility] [address] [id number] [place] [address] Aug, [facility] [address] [id number] [place] [address] Aug, [facility] [address] [id number] [place] [address] Aug, [facility] [address] [id number] [place] [address] Jul, [facility] [place] [facility] [address] [id number] [place] [address] Jul, [facility] [place] [facility] [address] [id number] [place] [address] Jun, [facility] [place] [facility] [address] [id number] [place] [address] Jun, [facility] [place] [facility] [address] [id number] [place] [address] 17 Jun, 2011 [facility] [place] [facility] [address] [id number] [place] [address] 15 Jun, 2011 [facility] [place] [facility] [address] [id number] [place] [address] Jun, [facility] [place] [facility] [address] [id number] [place] [address] Jun, [facility] [place] [facility] [address] [id number] [place] [address] Jun, [facility] [place] [facility] [address] [id number] [place] [address] Jun, [facility] [place] [facility] [address] [id number] [place] [address] Jun, [facility] [place] [facility] [address] [id number] [place] [address] Jun, [facility] [place] [facility] [address] [id number] [place] [address] May, [facility] [place] [facility] [address] [id number] [place] [address] May, [facility] [place] [facility] [address] [id number] [place] [address] May, [facility] [place] [facility] [address] [id number], [place] [address] 24 May, 2011 [facility] [place] [facility] [address] [id number], [place] [address] 18 May, 2011 [facility] [place] [facility] [address] [id number] [place] [address] May, [facility] [place] [facility] [address] [id number] [place] [address] Feb, [facility] [place] [facility] [address] [id number] [place] [address] December, [facility] [place] [facility] [id number], [place] [address] Jul, [facility] [id number], [place] [address] Jul, [facility] [id number], [place] [address] Jul, [facility] [id number], [place] [address] Jul, [facility] [id number], [place] [address] Jun, [facility] [id number] [place] [address] Jul, [facility] [id number], [place] [address] Jul, [facility] [id number] [place] [address] Jul, [facility] [id number], [place] [address] Jul, [facility] [id number] [place] [address] Jul, [facility] [id number], [place] [address] Jul, [facility] [id number], [place] [address] Jan, [facility] [address] [id number], [place] [address] Sep, [facility] [id number], [place] [address] Sep, IMMUNIZATIONS No Known Immunizations SOCIAL HISTORY Never Assessed REASON FOR VISIT EMR-[facility] [place] PLAN OF CARE VITAL SIGNS MEDICATIONS Unknown [...]
--- OUTSIDE RECORDS SUMMARY | 2019-01-22 20:34 | XMS REPORT ---
Author Author Migration, Doctor Organization [facility] Address Unknown Phone Unavailable Care Team Providers Care Pastrycook'S Assistant Name Role Phone Migration, Doctor Unavailable Unavailable PROBLEMS Type Condition ICD9-CM Code IWC06-MH Code Onset Dates Condition Status SNOMED Code Problem Hypertension I10 Active 67006898 Problem Generalized anxiety disorder F41.1 Active 507938502 Problem History of colon polyps Z86.010 Active 299073044 Problem History of diverticulitis Z87.19 Active 942232855736487 Problem Family history of diabetes mellitus Z83.3 Active 298774719 Problem Excessive and frequent menstruation with irregular cycle N92.1 Active 871428158 Problem Hot flashes N95.1 Active 748199634 Problem Gastroesophageal reflux disease with esophagitis K21.0 Active 322030320 Problem History of ovarian cyst Z87.42 Active 16494712 Problem Diverticulitis K57.92 Active 921262489 Problem Dense breast tissue R92.2 Active 183608948 Problem Perimenopausal N95.1 Active 974919160453488 Problem Mitral valve prolapse I34.1 Active 468512716 Problem Abnormal uterine bleeding (AUB) N93.9 Active 32096682292905 Problem Tachycardia R00.0 Active 6178640 ALLERGIES No Information ENCOUNTERS Encounter Location Date Diagnosis [facility] [id number] [address] Jan, [facility] [id number] [place] [address] December, [facility] [address] [place] [address] December, [facility] [address], [place] [address] Nov, Diverticulitis K57.92 [facility] [id number] [address] Nov, Generalized anxiety disorder F41.1 and Bereavement Z63.4 [facility] [address], [place] [address] Nov, Generalized anxiety disorder F41.1 and Bereavement Z63.4 [facility] [address], [place] [address] Nov, Diverticulitis K57.92 [facility] [address] [place] [address] Oct, Diverticulitis K57.92 [facility] [address] [place] [address] Oct, Diverticulitis K57.92 [facility] [address] [place] [address] Oct, Generalized anxiety disorder F41.1 [facility] [address] [place] [address] Oct, Right lower quadrant abdominal pain R10.31 and Diverticulitis K57.92 [facility] [address] [place] [address] Sep, Generalized anxiety disorder F41.1 and Bereavement Z63.4 [facility] [address], [place] [address] Aug, [facility] [address] [place] [address] Aug, Generalized anxiety disorder F41.1 and Bereavement Z63.4 [facility] [address] [id number] [address] Aug, Caries K02.9 [facility] [address], [place] [address] Jul, Generalized anxiety disorder F41.1 and Bereavement Z63.4 [facility] [address] [place] [address] Jul, Other acute gastritis without hemorrhage K29.00 ; Generalized anxiety disorder F41.1 ; Tachycardia R00.0 and Essential hypertension I10 [facility] [id number] [place] [address] Jul, Generalized anxiety disorder F41.1 and Bereavement Z63.4 [facility] [id number] [place] [address] Jun, Generalized anxiety disorder F41.1 and Bereavement Z63.4 [facility] [id number] [place] [address] Jun, Generalized anxiety disorder F41.1 and Bereavement Z63.4 [facility] [id number] [place] [address] Jun, Dental examination Z01.20 [facility] [id number] [place] [address] May, Generalized anxiety disorder F41.1 and Bereavement Z63.4 [facility] [id number] [place] [address] May, Encounter for immunization Z23 [facility] [id number] [place] [address] May, Generalized anxiety disorder F41.1 and Bereavement Z63.4 [facility] [id number] [place] [address] May, [facility] [id number] [place] [address] 24 Apr, 2018 Generalized anxiety disorder F41.1 and Bereavement Z63.4 [facility] [id number] [place] [address] 17 Apr, 2018 [facility] [id number] [place] [address] 13 Apr, 2018 Diverticulitis K57.92 [facility] [address], [place] [address] Apr, Generalized anxiety disorder F41.1 and Bereavement Z63.4 [facility] [address], [place] [address] Mar, [facility] [address] [place] [address] Mar, Diverticulitis K57.92 [facility] [id number] [place] [address] Mar, Generalized anxiety disorder F41.1 and Bereavement Z63.4 [facility] [id number] [place] [address] Mar, Hypertension I10 [facility] [id number] [place] [address] Mar, Generalized anxiety disorder F41.1 and Bereavement Z63.4 [facility] [id number] [place] [address] Feb, Generalized anxiety disorder F41.1 and Bereavement Z63.4 [facility] [id number] [place] [address] Feb, [facility] [address] [place] [address] Feb, Generalized anxiety disorder F41.1 and Bereavement Z63.4 [facility] [id number] [place] [address] Feb, Generalized anxiety disorder F41.1 and Bereavement Z63.4 [facility] [id number] [place] [address] Jan, Hypertension I10 and Acute non-recurrent maxillary sinusitis J01.00 [facility] [id number] [place] [address] December, [facility] [address] [facility] [id number] [address] December, Hypertension I10 [facility] [address] [id number] [address] December, Generalized anxiety disorder F41.1 [facility] [address] [id number], [place] [address] Oct, Encounter for dental examination Z01.20 [facility] [address] [id number], [place] [address] Oct, Encounter for dental examination Z01.20 [facility] [id number] [place] [address] Oct, Dental examination Z01.20 [facility] [address] [id number], [place] [address] Oct, Generalized anxiety disorder F41.1 [facility] [id number] [place] [address] Aug, Dental examination Z01.20 [facility] [id number], [place] [address] Aug, Generalized anxiety disorder F41.1 [facility] [id number], [place] [address] Aug, [facility] [address] [id number], [place] [address] Aug, Encounter for dental examination Z01.20 [facility] [address] [facility] [id number], [place] [address] Aug, Subacute maxillary sinusitis J01.00 [facility] [address] [id number], [place] [address] Jul, Dental examination Z01.20 [facility] [id number], [place] [address] Jul, Generalized anxiety disorder F41.1 [facility] [address], [place] [address] Jul, Diverticulitis K57.92 [facility] [address], [place] [address] 28 Jun, 2017 Encounter for immunization Z23 [facility] [id number] [place] [address] Jun, Dental examination Z01.20 [facility] [id number] [place] [address] 14 Jun, 2017 Generalized anxiety disorder F41.1 [facility] [id number] [place] [address] 07 Jun, 2017 Dental examination Z01.20 [facility] [id number] [place] [address] May, [facility] [id number] [place] [id number] May, Dental examination Z01.20 [facility] [address] [id number] May, Dental examination Z01.20 [facility] [id number] [place] [address] May, Dental examination Z01.20 [facility] [address] [place] [address] May, [facility] [address] [place] [address] May, Generalized anxiety disorder F41.1 [facility] [id number] [place] [address] 05 May, 2017 Localized edema R60.0 ; Yeast vaginitis B37.3 and Gastroesophageal reflux disease with esophagitis K21.0 [facility] [id number] [place] [id number] Apr, Dental examination Z01.20 [facility] [address] [id number], [place] [address] Apr, Dental examination Z01.20 [facility] [address] [id number], [place] [address] 05 Apr, 2017 Dental examination Z01.20 [facility] [address], [place] [address] Mar, Dyspepsia R10.13 [facility] [address], [place] [address] Mar, Generalized anxiety disorder F41.1 [facility] [address] [id number], [place] [address] Mar, Encounter for dental examination Z01.20 [facility] [id number] [place] [id number] Mar, [facility] [address] [address] Mar, Dental examination Z01.20 [facility] [address], [place] [address] Feb, Hypertension I10 and Tachycardia R00.0 [facility] [address] [id number], [place] [address] Feb, [facility] [address], [place] [address] Feb, Generalized anxiety disorder F41.1 [facility] [address] [id number] [address] Feb, Dental examination Z01.20 [facility] [id number], [place] [address] Jan, Generalized anxiety disorder F41.1 [facility] [id number], [place] [address] December, Generalized anxiety disorder F41.1 [facility] [address] [address] December, Encounter for dental examination Z01.20 [facility] [id number] [place] [address] Nov, [facility] [id number] [place] [address] Nov, [facility] [id number] [place] [address] Nov, Generalized anxiety disorder F41.1 [facility] [id number] [place] [address] Oct, [facility] [address] [place] [id number] Oct, Dental examination Z01.20 [facility] [id number] [place] [address] Oct, Vaginal dryness N89.8 [facility] [id number] [place] [address] Oct, Pseudoseizures F44.5 [facility] [id number] [place] [address] Oct, Generalized anxiety disorder F41.1 [facility] [id number] [place] [address] Sep, Abnormal uterine bleeding (AUB) N93.9 ; Vaginal dryness N89.8 and Screening breast examination Z12.39 [facility] [address] [place] [address] Sep, Dental examination Z01.20 [facility] [id number] [place] [address] Sep, Generalized anxiety disorder F41.1 [facility] [address] [place] [address] Sep, Unspecified ovarian cyst, right side N83.201 ; Unspecified ovarian cyst, left side N83.202 ; Yeast infection of the vagina B37.3 ; Mitral valve prolapse I34.1 and Hypertension I10 [facility] [address], [place] [address] Aug, Generalized anxiety disorder F41.1 [facility] [id number] [place] [address] Jul, [facility] [id number] [place] [address] Jul, Generalized anxiety disorder F41.1 [facility] [id number] [place] [address] Jun, Generalized anxiety disorder F41.1 [facility] [id number] [place] [address] May, Encounter for immunization Z23 [facility] [id number] [place] [address] 17 May, 2016 Generalized anxiety disorder F41.1 and Depressive disorder, not elsewhere classified F32.9 [facility] [id number] [place] [address] 28 Apr, 2016 Hypertension I10 [facility] [id number] [place] [address] 22 Apr, 2016 Cervicalgia M54.2 [facility] [id number] [place] [address] 12 Apr, 2016 Cervicalgia M54.2 [facility] [id number] [place] [address] 09 Mar, 2016 Generalized anxiety disorder F41.1 and Depressive disorder, not elsewhere classified F32.9 [facility] [address] [place] [id number] 14 Feb, 2016 Visit for dental examination Z01.20 [facility] [address], [place] [address] 11 Feb, 2016 Pseudoseizures F44.5 ; Migraine without status migrainosus, not intractable, unspecified migraine type G43.909 and Essential hypertension I10 [facility] [address] [id number] 06 Feb, 2016 Dental examination Z01.20 [facility] [id number] [place] [address] Feb, Generalized anxiety disorder F41.1 and Depressive disorder, not elsewhere classified F32.9 [facility] [id number] [place] [address] Jan, Tachycardia R00.0 [facility] [id number] [place] [address] December, Eustachian tube dysfunction, bilateral H69.83 [facility] [id number] [place] [address] December, Generalized anxiety disorder F41.1 and Depressive disorder, not elsewhere classified F32.9 [facility] [id number] [place] [address] Nov, [facility] [id number] [place] [address] Nov, [facility] [id number] [place] [address] Nov, Hypertension I10 ; Onychomycosis B35.1 ; [...] and Complex cyst of left ovary N83.29 [address] [facility] [address] [address] 14 Nov, 2015 Sinusitis J32.9 [facility] [facility] [address] [address] Oct, Complex cyst of left ovary N83.29 [address] [facility] [address] [address] Oct, Onychomycosis B35.1 [facility] [address] [id number] 17 Oct, 2015 Dental examination Z01.20 [address] [facility] [address] [address] 09 Oct, 2015 Well woman exam Z01.419 [...] R92.2 and History of colon polyps Z86.010 [facility] [address] [address] Oct, Generalized anxiety disorder F41.1 and Depressive disorder, not elsewhere classified F32.9 [facility] [id number] [place] [address] Sep, Hypertension I10 and Onychomycosis B35.1 [address] [place] [address] [address] Sep, Skin tags, multiple acquired L91.8 [facility] [address] [address] Aug, [facility] [address] [address] Aug, [facility] [id number] [place] [address] Aug, [facility] [address] [address] Aug, Generalized anxiety disorder F41.1 and Depressive disorder, not elsewhere classified F32.9 [facility] [id number] [place] [address] Jul, Skin lesion L98.9 [facility] [address] [address] Jun, Generalized anxiety disorder F41.1 and Depressive disorder, not elsewhere classified F32.9 [facility] [id number] [place] [address] Jun, [facility] [address] [address] Jun, Generalized anxiety disorder F41.1 [facility] [id number] [place] [address] May, Encounter for immunization Z23 and Right shoulder pain M25.511 [facility] [id number] [place] [address] Apr, [facility] [id number] [place] [address] Apr, Generalized anxiety disorder 300.02 and Depressive disorder, not elsewhere classified 311 [facility] [id number] [place] [id number] Mar, Dental examination V72.2 [facility] [id number] [place] [address] Mar, Generalized anxiety disorder 300.02 and Depressive disorder, not elsewhere classified 311 [facility] [id number] [place] [address] Mar, Depression, major, recurrent, 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.35 and 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 [facility] [address], [place] [address] Feb, Generalized anxiety disorder 300.02 and Depressive disorder, not elsewhere classified 311 [facility] [id number] [id number] 07 Feb, 2015 Dental examination V72.2 [facility] [address] [place] [address] Jan, Generalized anxiety disorder 300.02 and Depressive disorder, not elsewhere classified 311 [facility] [address] [place] [address] Jan, [facility] [address] [place] [address] December, Generalized anxiety disorder 300.02 and Depressive disorder, not elsewhere classified 311 [facility] [address] [place] [address] December, Major depressive disorder, recurrent, unspecified 296.30 and Panic disorder with agoraphobia 300.21 [facility] [address], [place] [address] Nov, [facility] [address], [place] [address] Nov, [facility] [address], [place] [address] Oct, [facility] [address], [place] [address] Oct, [facility] [address], [place] [address] Oct, [facility] [address], [place] [address] Oct, [facility] [address], [place] [address] Sep, [facility] [id number] [address] Sep, 2014 [facility] [place] [facility] [address] [id number] [place] [address] Sep, 2014 [facility] [place] [facility] [address] [id number] [place] [address] Sep, 2014 [facility] [place] [facility] [address] [id number] [place] [address] Sep, 2014 [facility] [place] [facility] [address] [id number] [place] [address] Sep, 2014 [facility] [place] [facility] [address] [id number] [place] [address] Sep, 2014 [facility] [place] [facility] [address] [facility] [id number] [place] [address] Sep, 2014 [facility] [place] [facility] [address] [facility] [id number] [place] [address] Sep, 2014 [facility] [place] [facility] [address] [facility] [id number] [place] [address] Sep, 2014 [facility] [place] [facility] [address] [facility] [id number] [place] [address] Aug, [facility] [place] [facility] [address] [facility] [id number] [place] [address] Aug, [facility] [place] [facility] [address] [id number] [place] [address] Jul, [facility] [place] [facility] [address] [id number] [place] [address] Jul, [facility] [place] [facility] [address] [id number] [place] [address] Jul, [facility] [place] [facility] [address] [id number] [place] [address] Jul, [facility] [place] [facility] [address] [id number] [place] [address] Jul, [facility] [place] [facility] [address] [id number] [place] [address] Jul, [facility] [place] [facility] [address] [id number] [place] [address] Jul, [facility] [place] [facility] [address] [id number] [place] [address] Jul, [facility] [place] [facility] [address] [id number] [place] [address] Jul, [facility] [place] [facility] [address] [id number] [place] [address] Jul, [facility] [place] [facility] [address] [id number] [place] [address] Jul, [facility] [place] [facility] [address] [id number] [place] [address] Jul, [facility] [place] [facility] [address] [id number] [place] [address] Jun, [facility] [place] [facility] [address] [id number] [place] [address] Jun, [facility] [place] [facility] [address] [id number] [place] [address] May, [facility] [place] [facility] [address] [id number] [place] [address] May, [facility] [place] [facility] [address] [id number], [place] [address] May, [facility] [place] [facility] [address] [id number] [place] [address] May, [facility] [place] [facility] [address] [id number] [place] [address] May, [facility] [place] [facility] [address] [id number] [place] [address] May, [facility] [place] [facility] [address] [id number] [place] [address] May, 2013 [facility] [place] [facility] [address] [id number] [place] [address] May, [facility] [place] [facility] [address] [id number] [place] [address] May, [facility] [place] [facility] [address] [id number] [place] [address] May, [facility] [place] [facility] [address] [id number] [place] [address] May, [facility] [place] [facility] [address] [id number] [place] [address] May, [facility] [place] [facility] [address] [id number] [place] [address] Apr, [facility] [place] [facility] [address] [id number] [place] [address] 30 Apr, 2013 [facility] [place] [facility] [address] [id number] [place] [address] Apr, [facility] [place] [facility] [address] [id number] [place] [address] Apr, [facility] [place] [facility] [address] [id number] [place] [address] Apr, [facility] [place] [facility] [address] [id number] [place] [address] Apr, 2013 [facility] [place] [facility] [address] [id number] [place] [address] Feb, [facility] [place] [facility] [address] [id number] [place] [address] Feb, [facility] [place] [facility] [address] [id number] [place] [address] Feb, [facility] [place] [facility] [address] [id number] [place] [address] Feb, [facility] [place] [facility] [address] [id number] [place] [address] Feb, [facility] [place] [facility] [address] [id number] [place] [address] Feb, [facility] [place] [facility] [address] [id number] [place] [address] Jan, [facility] [place] [facility] [address] [id number] [place] [address] Jan, [facility] [place] [facility] [address] [id number] [place] [address] Jan, [facility] [place] [facility] [address] [id number] [place] [address] Jan, [facility] [place] [facility] [address] [id number] [place] [address] Jan, [facility] [place] [facility] [address] [id number] [place] [address] Jan, [facility] [place] [facility] [address] [id number] [place] [address] Jan, [facility] [place] [facility] [address] [id number] [place] [address] Jan, [facility] [place] [facility] [address] [id number] [place] [address] December, [facility] [place] [facility] [address] [id number], [place] [address] December, [facility] [place] [facility] [address] [id number] [place] [address] December, [facility] [place] [facility] [address] [id number] [place] [address] December, [facility] [place] [facility] [address] [id number] [place] [address] Nov, [facility] [place] [facility] [address] [id number], [place] [address] Nov, [facility] [place] [facility] [address] [id number] [place] [address] Nov, [facility] [place] [facility] [address] [id number] [place] [address] Nov, [facility] [place] [facility] [address] [id number] [place] [address] Nov, [facility] [place] [facility] [address] [id number] [place] [address] Nov, [facility] [place] [facility] [address] [id number] [place] [address] Nov, [facility] [place] [facility] [address] [facility] [id number] [place] [address] Nov, [facility] [address] [facility] [id number] [place] [address] Oct, [facility] [place] [facility] [address] [facility] [id number] [place] [address] Oct, [facility] [place] [facility] [address] [id number] [address] Sep, [facility] [place] [facility] [address] [facility] [id number] [place] [address] Sep, [facility] [place] [facility] [address] [id number] [place] [id number] Sep, [facility] [place] [facility] [address] [facility] [id number], [place] [address] Sep, [facility] [place] [facility] [address] [facility] [id number] [place] [address] Sep, [facility] [place] [facility] [address] [facility] [id number] [place] [address] Sep, [facility] [place] [facility] [address] [facility] [id number], [place] [address] Aug, [facility] [place] [facility] [address] [id number] [place] [address] Aug, [facility] [place] [facility] [address] [id number] [place] [address] Aug, [facility] [place] [facility] [address] [id number] [place] [address] Aug, [facility] [place] [facility] [address] [id number] [place] [address] Jul, [facility] [address] [id number] [place] [address] Jul, [facility] [place] [facility] [address] [id number] [place] [address] Jul, [facility] [address] [id number] [place] [address] Jul, [facility] [place] [facility] [address] [id number] [place] [address] Jun, [facility] [place] [facility] [address] [id number] [place] [address] Jun, [facility] [place] [facility] [address] [id number] [place] [address] May, [facility] [place] [facility] [address] [id number] [place] [address] May, [facility] [place] [facility] [address] [id number], [place] [address] May, [facility] [place] [facility] [address] [id number] [place] [address] May, [facility] [place] [facility] [address] [id number] [place] [address] 10 May, 2013 [facility] [place] [facility] [address] [id number] [place] [address] 17 Apr, 2013 [facility] [place] [facility] [address] [id number] [place] [address] Apr, [facility] [place] [facility] [address] [id number] [place] [address] Mar, [facility] [place] [facility] [address] [id number] [place] [address] Mar, [facility] [place] [facility] [address] [id number] [place] [address] Mar, [facility] [place] [facility] [address] [id number] [place] [address] Mar, [facility] [place] [facility] [address] [id number] [place] [address] Feb, [facility] [place] [facility] [address] [id number] [place] [address] Feb, [facility] [place] [facility] [address] [id number] [place] [address] Feb, [facility] [place] [facility] [address] [id number] [place] [address] Feb, [facility] [place] [facility] [address] [id number] [place] [address] Feb, [facility] [place] [facility] [address] [id number] [place] [address] Jan, [facility] [place] [facility] [address] [id number] [place] [address] Jan, [facility] [place] [facility] [address] [id number] [place] [address] Jan, [facility] [place] [facility] [address] [id number] [place] [address] Jan, [facility] [place] [facility] [address] [id number] [place] [address] Jan, [facility] [place] [facility] [address] [id number] [place] [address] December, [facility] [place] [facility] [address] [id number] [place] [address] December, [facility] [address] [id number] [place] [address] Nov, [facility] [address] [id number] [place] [address] Nov, [facility] [address] [id number] [place] [address] Oct, [facility] [address] [id number] [place] [address] Oct, [facility] [address] [id number] [place] [address] 05 Oct, 2012 [facility] [address] [id number] [place] [address] 14 Sep, 2012 [facility] [address] [id number] [place] [address] 24 Aug, 2012 [facility] [address] [id number] [place] [address] Aug, [facility] [address] [id number] [place] [address] Aug, [facility] [address] [id number] [place] [address] Aug, [facility] [address] [id number] [place] [address] Jul, [facility] [address] [id number] [place] [address] Jul, [facility] [address] [id number] [place] [address] Jul, [facility] [address] [id number] [place] [address] Jul, [facility] [address] [id number] [place] [address] Jul, [facility] [place] [facility] [address] [id number] [place] [address] Jul, [facility] [place] [facility] [address] [id number] [place] [address] Jul, [facility] [place] [facility] [address] [id number] [place] [address] Jul, [facility] [place] [facility] [address] [id number] [place] [address] Jun, [facility] [place] [facility] [address] [id number] [place] [address] Jun, [facility] [place] [facility] [address] [id number] [place] [address] Jun, [facility] [place] [facility] [address] [id number] [place] [address] Jun, [facility] [place] [facility] [address] [id number] [place] [address] Jun, [facility] [place] [facility] [address] [id number] [place] [address] Jun, [facility] [place] [facility] [address] [facility] [id number], [place] [address] May, [facility] [place] [facility] [address] [id number], [place] [address] May, [facility] [place] [facility] [address] [id number], [place] [address] May, [facility] [place] [facility] [address] [id number] [place] [address] May, [facility] [place] [facility] [address] [id number], [place] [address] Apr, [facility] [place] [facility] [address] [id number], [place] [address] Apr, [facility] [place] [facility] [address] [id number] [place] [address] 08 Mar, 2012 [facility] [place] [facility] [address] [id number] [place] [address] 28 Jan, 2012 [facility] [place] [facility] [address] [id number] [place] [address] 20 Jan, 2012 [facility] [place] [facility] [address] [id number] [place] [address] 16 Jan, 2012 [facility] [place] [facility] [address] [id number] [place] [address] 15 Jan, 2012 [facility] [place] [facility] [address] [id number] [place] [address] 14 Jan, 2012 [facility] [place] [facility] [address] [id number] [place] [address] 14 Jan, 2012 [facility] [address] [id number] [place] [address] 07 Jan, 2012 [facility] [place] [facility] [address] [id number] [place] [address] December, [facility] [place] [facility] [address] [id number] [place] [address] December, [facility] [place] [facility] [address] [id number] [place] [address] December, [facility] [place] [facility] [address] [id number] [place] [address] December, [facility] [place] [facility] [address] [id number] [place] [address] Nov, [facility] [place] [facility] [address] [id number] [place] [address] 05 Nov, 2011 [facility] [place] [facility] [address] [id number] [place] [address] 29 Oct, 2011 [facility] [place] [facility] [address] [id number] [place] [address] Oct, [facility] [place] [facility] [address] [id number] [place] [address] Oct, [facility] [address] [id number] [place] [address] Sep, [facility] [place] [facility] [address] [id number] [place] [address] Sep, [facility] [address] [id number] [place] [address] Sep, [facility] [address] [id number] [place] [address] Aug, [facility] [address] [id number] [place] [address] Aug, [facility] [address] [id number] [place] [address] Aug, [facility] [address] [id number] [place] [address] Aug, [facility] [address] [id number] [place] [address] Aug, [facility] [address] [id number] [place] [address] Aug, [facility] [address] [id number] [place] [address] Aug, [facility] [address] [id number] [place] [address] Jul, [facility] [place] [facility] [address] [id number] [place] [address] Jul, [facility] [place] [facility] [address] [id number] [place] [address] Jun, [facility] [place] [facility] [address] [id number] [place] [address] Jun, [facility] [place] [facility] [address] [id number] [place] [address] 17 Jun, 2011 [facility] [place] [facility] [address] [id number] [place] [address] 15 Jun, 2011 [facility] [place] [facility] [address] [id number] [place] [address] Jun, [facility] [place] [facility] [address] [id number] [place] [address] Jun, [facility] [place] [facility] [address] [id number] [place] [address] Jun, [facility] [place] [facility] [address] [id number] [place] [address] Jun, [facility] [place] [facility] [address] [id number] [place] [address] Jun, [facility] [place] [facility] [address] [id number] [place] [address] Jun, [facility] [place] [facility] [address] [id number] [place] [address] May, [facility] [place] [facility] [address] [id number] [place] [address] May, [facility] [place] [facility] [address] [id number] [place] [address] May, [facility] [place] [facility] [address] [id number], [place] [address] 24 May, 2011 [facility] [place] [facility] [address] [id number], [place] [address] 18 May, 2011 [facility] [place] [facility] [address] [id number] [place] [address] May, [facility] [place] [facility] [address] [id number] [place] [address] Feb, [facility] [place] [facility] [address] [id number] [place] [address] December, [facility] [place] [facility] [id number], [place] [address] Jul, [facility] [id number], [place] [address] Jul, [facility] [id number], [place] [address] Jul, [facility] [id number], [place] [address] Jul, [facility] [id number], [place] [address] Jun, [facility] [id number] [place] [address] Jul, [facility] [id number], [place] [address] Jul, [facility] [id number] [place] [address] Jul, [facility] [id number], [place] [address] Jul, [facility] [id number] [place] [address] Jul, [facility] [address], [place] [address] Jul, [facility] [address], [place] [address] Jan, [facility] [address] [id number], [place] [address] Sep, [facility] [id number], [place] [address] Sep, IMMUNIZATIONS No Known Immunizations SOCIAL HISTORY Never Assessed REASON FOR VISIT EMR-[facility] PLAN OF CARE VITAL SIGNS MEDICATIONS Unknown [...]
--- OUTSIDE RECORDS SUMMARY | 2019-01-22 20:35 | XMS REPORT ---
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 Name Role Phone Migration, Doctor Unavailable Unavailable PROBLEMS Type Condition ICD9-CM Code FAZ70-SM Code Onset Dates Condition Status SNOMED Code Problem Hypertension I10 Active 26991416 Problem Generalized anxiety disorder F41.1 Active 210101436 Problem History of colon polyps Z86.010 Active 003025683 Problem History of diverticulitis Z87.19 Active 725043230177007 Problem Family history of diabetes mellitus Z83.3 Active 368849252 Problem Excessive and frequent menstruation with irregular cycle N92.1 Active 486949963 Problem Hot flashes N95.1 Active 243245368 Problem Gastroesophageal reflux disease with esophagitis K21.0 Active 879951533 Problem History of ovarian cyst Z87.42 Active 08719453 Problem Diverticulitis K57.92 Active 880400362 Problem Dense breast tissue R92.2 Active 809425733 Problem Perimenopausal N95.1 Active 270670060608660 Problem Mitral valve prolapse I34.1 Active 268679361 Problem Abnormal uterine bleeding (AUB) N93.9 Active 02920270285023 Problem Tachycardia R00.0 Active 7431459 ALLERGIES No Information ENCOUNTERS Encounter Location Date Diagnosis [facility] [id number], [place] [address] Jan, [facility] [id number] [place] [address] December, [facility] [id number] [place] [address] December, [facility] [address], [place] [address] Nov, Diverticulitis K57.92 [facility] [id number], [place] [address] Nov, Generalized anxiety disorder F41.1 and Bereavement Z63.4 [facility] [address], [place] [address] Nov, Generalized anxiety disorder F41.1 and Bereavement Z63.4 [facility] [address], [place] [address] Nov, Diverticulitis K57.92 [facility] [address] [place] [address] Oct, Diverticulitis K57.92 [facility] [address] [place] [address] Oct, Diverticulitis K57.92 [facility] [address] [place] [address] Oct, Generalized anxiety disorder F41.1 [facility] [address] [place] [address] Oct, Right lower quadrant abdominal pain R10.31 and Diverticulitis K57.92 [facility] [address] [place] [address] Sep, Generalized anxiety disorder F41.1 and Bereavement Z63.4 [facility] [address], [place] [address] Aug, [facility] [address] [place] [address] Aug, Generalized anxiety disorder F41.1 and Bereavement Z63.4 [facility] [address] [place], [id number] [address] Aug, Caries K02.9 [facility] [address], [place] [address] Jul, Generalized anxiety disorder F41.1 and Bereavement Z63.4 [facility] [address] [place] [address] Jul, Other acute gastritis without hemorrhage K29.00 ; Generalized anxiety disorder F41.1 ; Tachycardia R00.0 and Essential hypertension I10 [facility] [id number] [place] [address] Jul, Generalized anxiety disorder F41.1 and Bereavement Z63.4 [facility] [id number] [place] [address] Jun, Generalized anxiety disorder F41.1 and Bereavement Z63.4 [facility] [id number] [place] [address] Jun, Generalized anxiety disorder F41.1 and Bereavement Z63.4 [facility] [id number] [place] [address] Jun, Dental examination Z01.20 [facility] [id number] [place] [address] May, Generalized anxiety disorder F41.1 and Bereavement Z63.4 [facility] [id number] [place] [address] May, Encounter for immunization Z23 [facility] [id number] [place] [address] May, Generalized anxiety disorder F41.1 and Bereavement Z63.4 [facility] [id number] [place] [address] May, [facility] [id number] [place] [address] 24 Apr, 2018 Generalized anxiety disorder F41.1 and Bereavement Z63.4 [facility] [id number] [place] [address] 17 Apr, 2018 [facility] [id number] [place] [address] 13 Apr, 2018 Diverticulitis K57.92 [facility] [address], [place] [address] Apr, Generalized anxiety disorder F41.1 and Bereavement Z63.4 [facility] [address], [place] [address] Mar, [facility] [address] [place] [address] Mar, Diverticulitis K57.92 [facility] [id number] [place] [address] Mar, Generalized anxiety disorder F41.1 and Bereavement Z63.4 [facility] [id number] [place] [address] Mar, Hypertension I10 [facility] [id number] [place] [address] Mar, Generalized anxiety disorder F41.1 and Bereavement Z63.4 [facility] [id number] [place] [address] Feb, Generalized anxiety disorder F41.1 and Bereavement Z63.4 [facility] [id number] [place] [address] Feb, [facility] [address] [place] [address] Feb, Generalized anxiety disorder F41.1 and Bereavement Z63.4 [facility] [id number] [place] [address] Feb, Generalized anxiety disorder F41.1 and Bereavement Z63.4 [facility] [id number] [place] [address] Jan, Hypertension I10 and Acute non-recurrent maxillary sinusitis J01.00 [facility] [id number] [place] [address] December, [facility] [address] [facility] [id number] [address] December, Hypertension I10 [facility] [address] [id number], [place] [address] December, Generalized anxiety disorder F41.1 [facility] [address] [id number] [address] Oct, Encounter for dental examination Z01.20 [facility] [address] [id number] [address] Oct, Encounter for dental examination Z01.20 [facility] [id number] [place] [address] Oct, Dental examination Z01.20 [facility] [address] [id number], [place] [address] Oct, Generalized anxiety disorder F41.1 [facility] [id number] [place] [address] Aug, Dental examination Z01.20 [facility] [id number], [place] [address] Aug, Generalized anxiety disorder F41.1 [facility] [id number], [place] [address] Aug, [facility] [address] [id number] [place] [address] Aug, Encounter for dental examination Z01.20 [facility] [address] [facility] [id number], [place] [address] Aug, Subacute maxillary sinusitis J01.00 [facility] [address] [id number] [address] Jul, Dental examination Z01.20 [facility] [id number], [place] [address] Jul, Generalized anxiety disorder F41.1 [facility] [address], [place] [address] Jul, Diverticulitis K57.92 [facility] [address], [place] [address] 28 Jun, 2017 Encounter for immunization Z23 [facility] [id number] [place] [address] Jun, Dental examination Z01.20 [facility] [id number] [place] [address] 14 Jun, 2017 Generalized anxiety disorder F41.1 [facility] [id number] [place] [address] 07 Jun, 2017 Dental examination Z01.20 [facility] [id number] [place] [address] May, [facility] [id number] [place] [id number] May, Dental examination Z01.20 [facility] [address] [id number] May, Dental examination Z01.20 [facility] [id number] [place] [address] May, Dental examination Z01.20 [facility] [address] [place] [address] May, [facility] [address] [place] [address] May, Generalized anxiety disorder F41.1 [facility] [id number] [place] [address] 05 May, 2017 Localized edema R60.0 ; Yeast vaginitis B37.3 and Gastroesophageal reflux disease with esophagitis K21.0 [facility] [id number] [place] [id number] Apr, Dental examination Z01.20 [facility] [address] [id number] [place] [address] Apr, Dental examination Z01.20 [facility] [address] [id number] [place] [address] 05 Apr, 2017 Dental examination Z01.20 [facility] [address], [place] [address] Mar, Dyspepsia R10.13 [facility] [address], [place] [address] Mar, Generalized anxiety disorder F41.1 [facility] [address] [id number] [place] [address] Mar, Encounter for dental examination Z01.20 [facility] [id number] [place] [id number] Mar, [facility] [address] [address] Mar, Dental examination Z01.20 [facility] [address], [place] [address] Feb, Hypertension I10 and Tachycardia R00.0 [facility] [address] [id number] [place] [address] Feb, [facility] [address], [place] [address] Feb, Generalized anxiety disorder F41.1 [facility] [address] [id number] [id number] Feb, Dental examination Z01.20 [facility] [id number], [place] [address] Jan, Generalized anxiety disorder F41.1 [facility] [id number], [place] [address] December, Generalized anxiety disorder F41.1 [facility] [address] [id number] December, Encounter for dental examination Z01.20 [facility] [id number] [place] [address] Nov, [facility] [id number] [place] [address] Nov, [facility] [id number] [place] [address] Nov, Generalized anxiety disorder F41.1 [facility] [id number] [place] [address] Oct, [facility] [address] [place] [id number] Oct, Dental examination Z01.20 [facility] [id number] [place] [address] Oct, Vaginal dryness N89.8 [facility] [id number] [place] [address] Oct, Pseudoseizures F44.5 [facility] [id number] [place] [address] Oct, Generalized anxiety disorder F41.1 [facility] [id number] [place] [address] Sep, Abnormal uterine bleeding (AUB) N93.9 ; Vaginal dryness N89.8 and Screening breast examination Z12.39 [facility] [address] [place] [address] Sep, Dental examination Z01.20 [facility] [id number] [place] [address] Sep, Generalized anxiety disorder F41.1 [facility] [address] [place] [address] Sep, Unspecified ovarian cyst, right side N83.201 ; Unspecified ovarian cyst, left side N83.202 ; Yeast infection of the vagina B37.3 ; Mitral valve prolapse I34.1 and Hypertension I10 [facility] [address], [place] [address] Aug, Generalized anxiety disorder F41.1 [facility] [id number] [place] [address] Jul, [facility] [id number] [place] [address] Jul, Generalized anxiety disorder F41.1 [facility] [id number] [place] [address] Jun, Generalized anxiety disorder F41.1 [address] [id number] [place] [address] May, Encounter for immunization Z23 [facility] [id number] [place] [address] 17 May, 2016 Generalized anxiety disorder F41.1 and Depressive disorder, not elsewhere classified F32.9 [facility] [id number] [place] [address] 28 Apr, 2016 Hypertension I10 [facility] [id number] [place] [address] 22 Apr, 2016 Cervicalgia M54.2 [facility] [id number] [place] [address] 12 Apr, 2016 Cervicalgia M54.2 [facility] [id number] [place] [address] 09 Mar, 2016 Generalized anxiety disorder F41.1 and Depressive disorder, not elsewhere classified F32.9 [facility] [address] [place] [id number] 14 Feb, 2016 Visit for dental examination Z01.20 [facility] [id number], [place] [address] 11 Feb, 2016 Pseudoseizures F44.5 ; Migraine without status migrainosus, not intractable, unspecified migraine type G43.909 and Essential hypertension I10 [facility] [address] [id number] 06 Feb, 2016 Dental examination Z01.20 [facility] [id number] [place] [address] Feb, Generalized anxiety disorder F41.1 and Depressive disorder, not elsewhere classified F32.9 [facility] [id number] [place] [address] Jan, Tachycardia R00.0 [facility] [id number] [place] [address] December, Eustachian tube dysfunction, bilateral H69.83 [facility] [id number] [place] [address] December, Generalized anxiety disorder F41.1 and Depressive disorder, not elsewhere classified F32.9 [facility] [id number] [place] [address] Nov, [facility] [id number] [place] [address] Nov, [facility] [id number] [place] [address] Nov, Hypertension I10 ; Onychomycosis B35.1 ; [...] and Complex cyst of left ovary N83.29 [place] [address] [address] 14 Nov, 2015 Sinusitis J32.9 [place] [address] [address] Oct, Complex cyst of left ovary N83.29 [facility] [address] [address] Oct, Onychomycosis B35.1 [facility] [address] [id number] 17 Oct, 2015 Dental examination Z01.20 [address] [facility] [address] [address] 09 Oct, 2015 Well woman exam Z01.419 [...] R92.2 and History of colon polyps Z86.010 [place] [address] [address] Oct, Generalized anxiety disorder F41.1 and Depressive disorder, not elsewhere classified F32.9 [facility] [id number] [place] [address] Sep, Hypertension I10 and Onychomycosis B35.1 [address] [facility] [address] [address] Sep, Skin tags, multiple acquired L91.8 [place] [facility] [address] [address] Aug, [place] [facility] [address] [address] Aug, [facility] [id number] [place] [address] Aug, [facility] [address] [address] Aug, Generalized anxiety disorder F41.1 and Depressive disorder, not elsewhere classified F32.9 [facility] [id number] [place] [address] Jul, Skin lesion L98.9 [facility] [address] [address] Jun, Generalized anxiety disorder F41.1 and Depressive disorder, not elsewhere classified F32.9 [facility] [id number] [place] [address] Jun, [facility] [address] [address] Jun, Generalized anxiety disorder F41.1 [facility] [id number] [place] [address] May, Encounter for immunization Z23 and Right shoulder pain M25.511 [facility] [id number] [place] [address] Apr, [facility] [id number] [place] [address] Apr, Generalized anxiety disorder 300.02 and Depressive disorder, not elsewhere classified 311 [facility] [id number] [place] [id number] Mar, Dental examination V72.2 [facility] [id number] [place] [address] Mar, Generalized anxiety disorder 300.02 and Depressive disorder, not elsewhere classified 311 [facility] [id number] [place] [address] Mar, Depression, major, recurrent, 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.35 and 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 [facility] [address], [place] [address] Feb, Generalized anxiety disorder 300.02 and Depressive disorder, not elsewhere classified 311 [facility] [id number] [id number] 07 Feb, 2015 Dental examination V72.2 [facility] [address] [place] [address] Jan, Generalized anxiety disorder 300.02 and Depressive disorder, not elsewhere classified 311 [facility] [address] [place] [address] Jan, [facility] [address] [place] [address] December, Generalized anxiety disorder 300.02 and Depressive disorder, not elsewhere classified 311 [facility] [address] [place] [address] December, Major depressive disorder, recurrent, unspecified 296.30 and Panic disorder with agoraphobia 300.21 [facility] [address], [place] [address] Nov, [facility] [address], [place] [address] Nov, [facility] [address], [place] [address] Oct, [facility] [address], [place] [address] Oct, [facility] [address], [place] [address] Oct, [facility] [address], [place] [address] Oct, [facility] [address], [place] [address] Sep, [facility] [id number] [place] [address] Sep, 2014 [facility] [place] [facility] [address] [id number] [place] [address] Sep, 2014 [facility] [place] [facility] [address] [id number] [place] [address] Sep, 2014 [facility] [place] [facility] [address] [id number] [place] [address] Sep, 2014 [facility] [place] [facility] [address] [id number] [place] [address] Sep, 2014 [facility] [place] [facility] [address] [id number] [place] [address] Sep, 2014 [facility] [place] [facility] [address] [facility] [id number] [place] [address] Sep, 2014 [facility] [place] [facility] [address] [facility] [id number] [place] [address] Sep, 2014 [facility] [place] [facility] [address] [facility] [id number] [place] [address] Sep, 2014 [facility] [place] [facility] [address] [facility] [id number] [place] [address] Aug, [facility] [place] [facility] [address] [facility] [id number] [place] [address] Aug, [facility] [place] [facility] [address] [id number] [place] [address] Jul, [facility] [place] [facility] [address] [id number] [place] [address] Jul, [facility] [place] [facility] [address] [id number] [place] [address] Jul, [facility] [place] [facility] [address] [facility] [id number] [place] [address] Jul, [facility] [place] [facility] [address] [facility] [id number] [place] [address] Jul, [facility] [place] [facility] [address] [id number] [place] [address] Jul, [facility] [place] [facility] [address] [id number] [place] [address] Jul, [facility] [place] [facility] [address] [id number] [place] [address] Jul, [facility] [place] [facility] [address] [id number] [place] [address] Jul, [facility] [place] [facility] [address] [id number] [place] [address] Jul, [facility] [place] [facility] [address] [id number] [place] [address] Jul, [facility] [place] [facility] [address] [id number] [place] [address] Jul, [facility] [place] [facility] [address] [id number] [place] [address] Jun, [facility] [place] [facility] [address] [id number] [place] [address] Jun, [facility] [place] [facility] [address] [id number] [place] [address] May, [facility] [place] [facility] [address] [id number] [place] [address] May, [facility] [place] [facility] [address] [id number] [address] May, [facility] [place] [facility] [address] [id number] [place] [address] May, [facility] [place] [facility] [address] [id number] [place] [address] May, [facility] [place] [facility] [address] [id number] [place] [address] May, [facility] [place] [facility] [address] [id number] [place] [address] May, 2013 [facility] [place] [facility] [address] [id number] [place] [address] May, [facility] [place] [facility] [address] [id number] [place] [address] May, [facility] [place] [facility] [address] [id number] [place] [address] May, [facility] [place] [facility] [address] [id number] [place] [address] May, [facility] [place] [facility] [address] [id number] [place] [address] May, [facility] [place] [facility] [address] [id number] [place] [address] Apr, [facility] [place] [facility] [address] [id number] [place] [address] 30 Apr, 2013 [facility] [place] [facility] [address] [id number] [place] [address] Apr, [facility] [place] [facility] [address] [id number] [place] [address] Apr, [facility] [place] [facility] [address] [id number] [place] [address] Apr, [facility] [place] [facility] [address] [id number] [place] [address] Apr, 2013 [facility] [place] [facility] [address] [id number] [place] [address] Feb, [facility] [place] [facility] [address] [id number] [place] [address] Feb, [facility] [place] [facility] [address] [id number] [place] [address] Feb, [facility] [place] [facility] [address] [id number] [place] [address] Feb, [facility] [place] [facility] [address] [id number] [place] [address] Feb, [facility] [place] [facility] [address] [id number] [place] [address] Feb, [facility] [place] [facility] [address] [id number] [place] [address] Jan, [facility] [place] [facility] [address] [id number] [place] [address] Jan, [facility] [place] [facility] [address] [id number] [place] [address] Jan, [facility] [place] [facility] [address] [id number] [place] [address] Jan, [facility] [place] [facility] [address] [id number] [place] [address] Jan, [facility] [place] [facility] [address] [id number] [place] [address] Jan, [facility] [place] [facility] [address] [id number] [place] [address] Jan, [facility] [place] [facility] [address] [id number] [place] [address] Jan, [facility] [place] [facility] [address] [id number] [place] [address] December, [facility] [place] [facility] [address] [id number], [place] [address] December, [facility] [place] [facility] [address] [id number] [place] [address] December, [facility] [place] [facility] [address] [id number] [place] [address] December, [facility] [place] [facility] [address] [id number] [place] [address] Nov, [facility] [place] [facility] [address] [id number], [place] [address] Nov, [facility] [place] [facility] [address] [id number] [place] [address] Nov, [facility] [place] [facility] [address] [id number] [place] [address] Nov, [facility] [place] [facility] [address] [id number] [place] [address] Nov, [facility] [place] [facility] [address] [id number] [place] [address] Nov, [facility] [place] [facility] [address] [id number] [place] [address] Nov, [facility] [place] [facility] [address] [facility] [id number] [place] [address] Nov, [facility] [address] [facility] [id number] [place] [address] Oct, [facility] [place] [facility] [address] [facility] [id number] [place] [address] Oct, [facility] [place] [facility] [address] [id number] [place] [address] Sep, [facility] [place] [facility] [address] [facility] [id number] [place] [address] Sep, [facility] [place] [facility] [id number] [id number] Sep, [facility] [place] [facility] [address] [facility] [id number], [place] [address] Sep, [facility] [place] [facility] [address] [facility] [id number] [place] [address] Sep, [facility] [place] [facility] [address] [facility] [id number] [place] [address] Sep, [facility] [place] [facility] [address] [facility] [id number], [place] [address] Aug, [facility] [place] [facility] [address] [id number] [place] [address] Aug, [facility] [place] [facility] [address] [id number] [place] [address] Aug, [facility] [place] [facility] [address] [id number] [place] [address] Aug, [facility] [place] [facility] [address] [id number] [place] [address] Jul, [facility] [address] [id number] [place] [address] Jul, [facility] [place] [facility] [address] [id number] [place] [address] Jul, [facility] [address] [id number] [place] [address] Jul, [facility] [place] [facility] [address] [id number] [place] [address] Jun, [facility] [place] [facility] [address] [id number] [place] [address] Jun, [facility] [place] [facility] [address] [id number] [place] [address] May, [facility] [place] [facility] [address] [id number] [place] [address] May, [facility] [place] [facility] [address] [id number], [place] [address] May, [facility] [place] [facility] [address] [id number] [place] [address] May, [facility] [place] [facility] [address] [id number] [place] [address] 10 May, 2013 [facility] [place] [facility] [address] [id number] [place] [address] 17 Apr, 2013 [facility] [place] [facility] [address] [id number] [place] [address] Apr, [facility] [place] [facility] [address] [id number] [place] [address] Mar, [facility] [place] [facility] [address] [id number] [place] [address] Mar, [facility] [place] [facility] [address] [id number] [place] [address] Mar, [facility] [place] [facility] [address] [id number] [place] [address] Mar, [facility] [place] [facility] [address] [id number] [place] [address] Feb, [facility] [place] [facility] [address] [id number] [place] [address] Feb, [facility] [place] [facility] [address] [id number] [place] [address] Feb, [facility] [place] [facility] [address] [id number] [place] [address] Feb, [facility] [place] [facility] [address] [id number] [place] [address] Feb, [facility] [place] [facility] [address] [id number] [place] [address] Jan, [facility] [place] [facility] [address] [id number] [place] [address] Jan, [facility] [place] [facility] [address] [id number] [place] [address] Jan, [facility] [place] [facility] [address] [id number] [place] [address] Jan, [facility] [place] [facility] [address] [id number] [place] [address] Jan, [facility] [place] [facility] [address] [id number] [place] [address] December, [facility] [place] [facility] [address] [id number] [place] [address] December, [facility] [address] [id number] [place] [address] Nov, [facility] [address] [id number] [place] [address] Nov, [facility] [address] [id number] [place] [address] Oct, [facility] [address] [id number] [place] [address] Oct, [facility] [address] [id number] [place] [address] 05 Oct, 2012 [facility] [address] [id number] [place] [address] 14 Sep, 2012 [facility] [address] [id number] [place] [address] 24 Aug, 2012 [facility] [address] [id number] [place] [address] Aug, [facility] [address] [id number] [place] [address] Aug, [facility] [address] [id number] [place] [address] Aug, [facility] [address] [id number] [place] [address] Jul, [facility] [address] [id number] [place] [address] Jul, [facility] [address] [id number] [place] [address] Jul, [facility] [address] [id number] [place] [address] Jul, [facility] [address] [id number] [place] [address] Jul, [facility] [place] [facility] [address] [id number] [place] [address] Jul, [facility] [place] [facility] [address] [id number] [place] [address] Jul, [facility] [place] [facility] [address] [id number] [place] [address] Jul, [facility] [place] [facility] [address] [id number] [place] [address] Jun, [facility] [place] [facility] [address] [id number] [place] [address] Jun, [facility] [place] [facility] [address] [id number] [place] [address] Jun, [facility] [place] [facility] [address] [id number] [place] [address] Jun, [facility] [place] [facility] [address] [id number] [place] [address] Jun, [facility] [place] [facility] [address] [id number] [place] [address] Jun, [facility] [place] [facility] [address] [facility] [id number], [place] [address] May, [facility] [place] [facility] [address] [id number], [place] [address] May, [facility] [place] [facility] [address] [id number], [place] [address] May, [facility] [place] [facility] [address] [id number] [place] [address] May, [facility] [place] [facility] [address] [id number], [place] [address] Apr, [facility] [place] [facility] [address] [id number], [place] [address] Apr, [facility] [place] [facility] [address] [id number] [place] [address] 08 Mar, 2012 [facility] [place] [facility] [address] [id number] [place] [address] 28 Jan, 2012 [facility] [place] [facility] [address] [id number] [place] [address] 20 Jan, 2012 [facility] [place] [facility] [address] [id number] [place] [address] 16 Jan, 2012 [facility] [place] [facility] [address] [id number] [place] [address] 15 Jan, 2012 [facility] [place] [facility] [address] [id number] [place] [address] 14 Jan, 2012 [facility] [place] [facility] [address] [id number] [place] [address] 14 Jan, 2012 [facility] [address] [id number] [place] [address] 07 Jan, 2012 [facility] [place] [facility] [address] [id number] [place] [address] December, [facility] [place] [facility] [address] [id number] [place] [address] December, [facility] [place] [facility] [address] [id number] [place] [address] December, [facility] [place] [facility] [address] [id number] [place] [address] December, [facility] [place] [facility] [address] [id number] [place] [address] Nov, [facility] [place] [facility] [address] [id number] [place] [address] 05 Nov, 2011 [facility] [place] [facility] [address] [id number] [place] [address] 29 Oct, 2011 [facility] [place] [facility] [address] [id number] [place] [address] Oct, [facility] [place] [facility] [address] [id number] [place] [address] Oct, [facility] [address] [id number] [place] [address] Sep, [facility] [place] [facility] [address] [id number] [place] [address] Sep, [facility] [address] [id number] [place] [address] Sep, [facility] [address] [id number] [place] [address] Aug, [facility] [address] [id number] [place] [address] Aug, [facility] [address] [id number] [place] [address] Aug, [facility] [address] [id number] [place] [address] Aug, [facility] [address] [id number] [place] [address] Aug, [facility] [address] [id number] [place] [address] Aug, [facility] [address] [id number] [place] [address] Aug, [facility] [address] [id number] [place] [address] Jul, [facility] [place] [facility] [address] [id number] [place] [address] Jul, [facility] [place] [facility] [address] [id number] [place] [address] Jun, [facility] [place] [facility] [address] [id number] [place] [address] Jun, [facility] [place] [facility] [address] [id number] [place] [address] 17 Jun, 2011 [facility] [place] [facility] [address] [id number] [place] [address] 15 Jun, 2011 [facility] [place] [facility] [address] [id number] [place] [address] Jun, [facility] [place] [facility] [address] [id number] [place] [address] Jun, [facility] [place] [facility] [address] [id number] [place] [address] Jun, [facility] [place] [facility] [address] [id number] [place] [address] Jun, [facility] [place] [facility] [address] [id number] [place] [address] Jun, [facility] [place] [facility] [address] [id number] [place] [address] Jun, [facility] [place] [facility] [address] [id number] [place] [address] May, [facility] [place] [facility] [address] [id number] [place] [address] May, [facility] [place] [facility] [address] [id number] [place] [address] May, [facility] [place] [facility] [address] [id number], [place] [address] 24 May, 2011 [facility] [place] [facility] [address] [id number], [place] [address] 18 May, 2011 [facility] [place] [facility] [address] [id number] [place] [address] May, [facility] [place] [facility] [address] [id number] [place] [address] Feb, [facility] [place] [facility] [address] [id number] [place] [address] December, [facility] [place] [facility] [id number], [place] [address] Jul, [facility] [id number], [place] [address] Jul, [facility] [id number], [place] [address] Jul, [facility] [id number], [place] [address] Jul, [facility] [id number], [place] [address] Jun, [facility] [id number] [place] [address] Jul, [facility] [id number], [place] [address] Jul, [facility] [id number] [place] [address] Jul, [facility] [id number], [place] [address] Jul, [facility] [id number] [place] [address] Jul, [facility] [id number], [place] [address] Jul, [facility] [id number], [place] [address] Jan, [facility] [address] [id number], [place] [address] Sep, [facility] [id number], [place] [address] Sep, IMMUNIZATIONS No Known Immunizations SOCIAL HISTORY Never Assessed REASON FOR VISIT EMR-[facility] PLAN OF CARE VITAL SIGNS [...]
--- OUTSIDE RECORDS SUMMARY | 2019-01-22 20:35 | XMS REPORT ---
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 Name Role Phone Migration, Doctor Unavailable Unavailable PROBLEMS Type Condition ICD9-CM Code [id number] Code Onset Dates Condition Status SNOMED Code Problem Hypertension I10 Active 87332728 Problem Generalized anxiety disorder F41.1 Active 788422350 Problem History of colon polyps Z86.010 Active 569037356 Problem History of diverticulitis Z87.19 Active 645527252053233 Problem Family history of diabetes mellitus Z83.3 Active 072448489 Problem Excessive and frequent menstruation with irregular cycle N92.1 Active 110271873 Problem Hot flashes N95.1 Active 189259847 Problem Gastroesophageal reflux disease with esophagitis K21.0 Active 190724724 Problem History of ovarian cyst Z87.42 Active 86521384 Problem Diverticulitis K57.92 Active 625220083 Problem Dense breast tissue R92.2 Active 517288663 Problem Perimenopausal N95.1 Active 313041039550874 Problem Mitral valve prolapse I34.1 Active 245354761 Problem Abnormal uterine bleeding (AUB) N93.9 Active 07281455332938 Problem Tachycardia R00.0 Active 8687503 ALLERGIES No Information ENCOUNTERS Encounter Location Date Diagnosis [facility] [place] [address] [id number] [address] Jan, [facility] [place] [id number] [place] [phone] December, [facility] [place] [id number] [place] [phone] December, [facility] [address], [place] [address] Nov, Diverticulitis K57.92 [facility] [place] [id number], [place] [address] Nov, Generalized anxiety disorder F41.1 and Bereavement Z63.4 [facility] [place] [address], [place] [address] Nov, Generalized anxiety disorder F41.1 and Bereavement Z63.4 [facility] [place] [address], [place] [address] Nov, Diverticulitis K57.92 [facility] [id number] [place] [address] Oct, Diverticulitis K57.92 [facility] [place] [id number] [place] [address] Oct, Diverticulitis K57.92 [facility] [place] [id number] [place] [address] Oct, Generalized anxiety disorder F41.1 [facility] [id number] [place] [address] Oct, Right lower quadrant abdominal pain R10.31 and Diverticulitis K57.92 [facility] [place] [id number] [place] [address] Sep, Generalized anxiety disorder F41.1 and Bereavement Z63.4 [facility] [place] [address], [place] [address] Aug, [facility] [place] [id number] [place] [address] Aug, Generalized anxiety disorder F41.1 and Bereavement Z63.4 [facility] [address] [id number] [address] Aug, Caries K02.9 [facility] [place] [address], [place] [address] Jul, Generalized anxiety disorder F41.1 and Bereavement Z63.4 [facility] [place] [id number] [place] [address] Jul, Other acute gastritis without hemorrhage K29.00 ; Generalized anxiety disorder F41.1 ; Tachycardia R00.0 and Essential hypertension I10 [facility] [place] [id number] [place] [address] Jul, Generalized anxiety disorder F41.1 and Bereavement Z63.4 [facility] [place] [id number] [place] [address] Jun, Generalized anxiety disorder F41.1 and Bereavement Z63.4 [facility] [place] [id number] [place] [address] Jun, Generalized anxiety disorder F41.1 and Bereavement Z63.4 [facility] [id number] [place] [address] Jun, Dental examination Z01.20 [facility] [place] [id number] [place] [address] May, Generalized anxiety disorder F41.1 and Bereavement Z63.4 [facility] [place] [id number] [place] [address] May, Encounter for immunization Z23 [facility] [place] [id number] [place] [address] May, Generalized anxiety disorder F41.1 and Bereavement Z63.4 [facility] [place] [id number] [place] [address] May, [facility] [place] [id number] [place] [address] 24 Apr, 2018 Generalized anxiety disorder F41.1 and Bereavement Z63.4 [facility] [place] [id number] [place] [address] 17 Apr, 2018 [facility] [place] [id number] [place] [address] 13 Apr, 2018 Diverticulitis K57.92 [facility] [place] [address], [place] [address] Apr, Generalized anxiety disorder F41.1 and Bereavement Z63.4 [facility] [address], [place] [address] Mar, [facility] [id number] [place] [address] Mar, Diverticulitis K57.92 [facility] [place] [id number] [place] [address] Mar, Generalized anxiety disorder F41.1 and Bereavement Z63.4 [facility] [place] [id number] [place] [address] Mar, Hypertension I10 [facility] [place] [id number] [place] [address] Mar, Generalized anxiety disorder F41.1 and Bereavement Z63.4 [facility] [place] [id number] [place] [address] Feb, Generalized anxiety disorder F41.1 and Bereavement Z63.4 [facility] [place] [id number] [place] [phone] Feb, [facility] [place] [id number] [place] [address] Feb, Generalized anxiety disorder F41.1 and Bereavement Z63.4 [facility] [place] [id number] [place] [phone] Feb, Generalized anxiety disorder F41.1 and Bereavement Z63.4 [facility] [place] [id number] [place] [address] Jan, Hypertension I10 and Acute non-recurrent maxillary sinusitis J01.00 [facility] [place] [id number] [place] [address] December, [facility] [place] [address] [facility] [id number], [place] [address] December, Hypertension I10 [facility] [place] [address] [id number] [address] December, Generalized anxiety disorder F41.1 [facility] [address] [id number], [place] [address] Oct, Encounter for dental examination Z01.20 [facility] [address] [id number], [place] [address] Oct, Encounter for dental examination Z01.20 [facility] [id number] [place] [address] Oct, Dental examination Z01.20 [facility] [place] [address] [id number], [place] [address] Oct, Generalized anxiety disorder F41.1 [facility] [id number] [place] [address] Aug, Dental examination Z01.20 [facility] [place] [id number], [place] [address] Aug, Generalized anxiety disorder F41.1 [facility] [place] [id number], [place] [address] Aug, [facility] [address] [id number], [place] [address] Aug, Encounter for dental examination Z01.20 [facility] [place] [address] [facility] [id number], [place] [address] Aug, Subacute maxillary sinusitis J01.00 [facility] [address] [id number], [place] [address] Jul, Dental examination Z01.20 [facility] [place] [id number], [place] [address] Jul, Generalized anxiety disorder F41.1 [facility] [place] [address], [place] [address] Jul, Diverticulitis K57.92 [facility] [place] [address], [place] [address] 28 Jun, 2017 Encounter for immunization Z23 [facility] [id number] [place] [address] Jun, Dental examination Z01.20 [facility] [place] [id number] [place] [phone] 14 Jun, 2017 Generalized anxiety disorder F41.1 [facility] [id number] [place] [address] 07 Jun, 2017 Dental examination Z01.20 [facility] [place] [id number] [place] [address] May, [facility] [id number] [place] [phone] May, Dental examination Z01.20 [facility] [address] [id number] May, Dental examination Z01.20 [facility] [id number] [place] [address] May, Dental examination Z01.20 [facility] [place] [id number] [place] [address] May, [facility] [place] [id number] [place] [address] May, Generalized anxiety disorder F41.1 [facility] [place] [id number] [place] [address] 05 May, 2017 Localized edema R60.0 ; Yeast vaginitis B37.3 and Gastroesophageal reflux disease with esophagitis K21.0 [facility] [id number] [place] [phone] Apr, Dental examination Z01.20 [facility] [address] [id number], [place] [address] Apr, Dental examination Z01.20 [facility] [address] [id number], [place] [address] 05 Apr, 2017 Dental examination Z01.20 [facility] [place] [address], [place] [address] Mar, Dyspepsia R10.13 [facility] [place] [address], [place] [address] Mar, Generalized anxiety disorder F41.1 [facility] [address] [id number], [place] [address] Mar, Encounter for dental examination Z01.20 [facility] [id number] [place] [id number] Mar, [facility] [address] [id number] Mar, Dental examination Z01.20 [facility] [place] [address], [place] [address] Feb, Hypertension I10 and Tachycardia R00.0 [facility] [address] [id number], [place] [address] Feb, [facility] [place] [address], [place] [address] Feb, Generalized anxiety disorder F41.1 [facility] [address] [id number] [id number] Feb, Dental examination Z01.20 [facility] [place] [id number], [place] [address] Jan, Generalized anxiety disorder F41.1 [facility] [place] [id number], [place] [address] December, Generalized anxiety disorder F41.1 [facility] [address] [id number] December, Encounter for dental examination Z01.20 [facility] [place] [id number] [place] [phone] Nov, [facility] [place] [id number] [place] [address] Nov, [facility] [place] [id number] [place] [address] Nov, Generalized anxiety disorder F41.1 [facility] [place] [id number] [place] [address] Oct, [facility] [address] [place] [id number] Oct, Dental examination Z01.20 [facility] [place] [id number] [place] [phone] Oct, Vaginal dryness N89.8 [facility] [place] [id number] [place] [address] Oct, Pseudoseizures F44.5 [facility] [place] [id number] [place] [address] Oct, Generalized anxiety disorder F41.1 [facility] [place] [id number] [place] [address] Sep, Abnormal uterine bleeding (AUB) N93.9 ; Vaginal dryness N89.8 and Screening breast examination Z12.39 [facility] [place] [id number] [place] [address] Sep, Dental examination Z01.20 [facility] [place] [id number] [place] [address] Sep, Generalized anxiety disorder F41.1 [facility] [place] [id number] [place] [address] Sep, Unspecified ovarian cyst, right side N83.201 ; Unspecified ovarian cyst, left side N83.202 ; Yeast infection of the vagina B37.3 ; Mitral valve prolapse I34.1 and Hypertension I10 [facility] [place] [address], [place] [address] Aug, Generalized anxiety disorder F41.1 [facility] [place] [id number] [place] [address] Jul, [facility] [place] [id number] [place] [address] Jul, Generalized anxiety disorder F41.1 [facility] [place] [id number] [place] [address] Jun, Generalized anxiety disorder F41.1 [place] [id number] [place] [address] May, Encounter for immunization Z23 [facility] [place] [id number] [place] [address] 17 May, 2016 Generalized anxiety disorder F41.1 and Depressive disorder, not elsewhere classified F32.9 [facility] [place] [id number] [place] [id number] 28 Apr, 2016 Hypertension I10 [facility] [place] [id number] [place] [address] 22 Apr, 2016 Cervicalgia M54.2 [facility] [id number] [place] [phone] 12 Apr, 2016 Cervicalgia M54.2 [facility] [place] [id number] [place] [phone] 09 Mar, 2016 Generalized anxiety disorder F41.1 and Depressive disorder, not elsewhere classified F32.9 [facility] [address] [place] [id number] 14 Feb, 2016 Visit for dental examination Z01.20 [facility] [place] [address] [id number], [place] [address] 11 Feb, 2016 Pseudoseizures F44.5 ; Migraine without status migrainosus, not intractable, unspecified migraine type G43.909 and Essential hypertension I10 [facility] [address] [id number] 06 Feb, 2016 Dental examination Z01.20 [place] [id number] [place] [address] Feb, Generalized anxiety disorder F41.1 and Depressive disorder, not elsewhere classified F32.9 [place] [id number] [place] [address] Jan, Tachycardia R00.0 [place] [id number] [place] [address] December, Eustachian tube dysfunction, bilateral H69.83 [place] [id number] [place] [phone] December, Generalized anxiety disorder F41.1 and Depressive disorder, not elsewhere classified F32.9 [place] [id number] [place] [address] Nov, [place] [id number] [place] [address] Nov, [place] [id number] [place] [address] Nov, Hypertension I10 ; Onychomycosis B35.1 ; [...] and Complex cyst of left ovary N83.29 [place] [address] [address] 14 Nov, 2015 Sinusitis J32.9 [place] [address] [address] Oct, Complex cyst of left ovary N83.29 [place] [address] [address] Oct, Onychomycosis B35.1 [facility] [address] [id number] Oct, 2015 Dental examination Z01.20 [place] [address] [address] 09 Oct, 2015 Well woman exam Z01.419 [...] R92.2 and History of colon polyps Z86.010 [place] [address] [address] Oct, Generalized anxiety disorder F41.1 and Depressive disorder, not elsewhere classified F32.9 [place] [id number] [place] [address] Sep, Hypertension I10 and Onychomycosis B35.1 [place] [address] [address] Sep, Skin tags, multiple acquired L91.8 [place] [address] [address] Aug, [place] [address] [address] Aug, [facility] [place] [address] [id number] [place] [id number] Aug, [facility] [place] [address] [address] Aug, Generalized anxiety disorder F41.1 and Depressive disorder, not elsewhere classified F32.9 [facility] [place] [address] [place] [id number] [place] [id number] Jul, Skin lesion L98.9 [facility] [place] [address] [address] Jun, Generalized anxiety disorder F41.1 and Depressive disorder, not elsewhere classified F32.9 [place] [address] [place] [id number] [place] [phone] Jun, [place] [address] [address] Jun, Generalized anxiety disorder F41.1 [facility] [place] [address] [place] [id number] [place] [id number] May, Encounter for immunization Z23 and Right shoulder pain M25.511 [place] [address] [place] [id number] [place] [id number] Apr, [facility] [place] [address] [place] [id number] [place] [id number] Apr, Generalized anxiety disorder 300.02 and Depressive disorder, not elsewhere classified [address] [facility] [address] [place] [id number] [place] [id number] Mar, Dental examination V72.2 [facility] [place] [address] [place] [id number] [place] [phone] Mar, Generalized anxiety disorder 300.02 and Depressive disorder, not elsewhere classified [address] [facility] [place] [address] [place] [id number] [place] [phone] Mar, Depression, major, recurrent, 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.35 and 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 [facility] [place] [id number] [place] [address] Feb, Generalized anxiety disorder 300.02 and Depressive disorder, not elsewhere classified [address] [facility] [address] [place] [id number] [id number] [id number] Feb, 2015 Dental examination V72.2 [facility] [place] [id number] [place] [phone] Jan, Generalized anxiety disorder 300.02 and Depressive disorder, not elsewhere classified [address] [facility] [place] [id number] [place] [address] Jan, [facility] [place] [id number] [place] [address] December, Generalized anxiety disorder 300.02 and Depressive disorder, not elsewhere classified [address] [facility] [place] [id number] [place] [address] December, Major depressive disorder, recurrent, unspecified 296.30 and Panic disorder with agoraphobia 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 [facility] [place] [address] [address] Nov, [facility] [place] [address] [address] Nov, [facility] [place] [address], [place] [address] Oct, [facility] [place] [address], [place] [address] Oct, [facility] [place] [address], [place] [address] Oct, [facility] [place] [id number], [place] [address] Oct, [facility] [place] [address] [address] Sep, [facility] [place] [address] [id number] [address] Sep, 2014 [facility] [place] [facility] [address] [id number] [place] [address] Sep, 2014 [facility] [place] [facility] [address] [id number] [place] [address] Sep, 2014 [facility] [place] [facility] [address] [id number] [place] [address] Sep, 2014 [facility] [place] [facility] [address] [id number] [place] [address] Sep, 2014 [facility] [place] [facility] [address] [id number] [place] [address] Sep, 2014 [facility] [place] [facility] [address] [facility] [id number] [place] [address] Sep, 2014 [facility] [place] [facility] [address] [facility] [id number] [place] [address] Sep, 2014 [facility] [place] [facility] [address] [facility] [id number] [place] [address] Sep, 2014 [facility] [place] [facility] [address] [facility] [id number] [place] [address] Aug, [facility] [place] [facility] [address] [facility] [id number] [place] [address] Aug, [facility] [place] [facility] [address] [id number] [place] [address] Jul, [facility] [place] [facility] [address] [id number] [place] [address] Jul, [facility] [place] [facility] [address] [id number] [place] [address] Jul, [facility] [place] [facility] [address] [facility] [id number] [place] [address] Jul, [facility] [place] [facility] [address] [facility] [id number] [place] [address] Jul, [facility] [place] [facility] [address] [id number] [place] [address] Jul, [facility] [place] [facility] [address] [id number] [place] [address] Jul, [facility] [place] [facility] [address] [id number] [place] [address] Jul, [facility] [place] [facility] [address] [id number] [place] [address] Jul, [facility] [place] [facility] [address] [id number] [place] [address] Jul, [facility] [place] [facility] [address] [id number] [place] [address] Jul, [facility] [place] [facility] [address] [id number] [place] [address] Jul, [facility] [place] [facility] [address] [id number] [place] [address] Jun, [facility] [place] [facility] [address] [id number] [place] [address] Jun, [facility] [place] [facility] [address] [id number] [place] [address] May, [facility] [place] [facility] [address] [id number] [place] [address] May, [facility] [place] [facility] [address] [id number], [place] [address] May, [facility] [place] [facility] [address] [id number] [place] [address] May, [facility] [place] [facility] [address] [id number] [place] [address] May, [facility] [place] [facility] [address] [id number] [place] [address] May, [facility] [place] [facility] [address] [id number] [place] [address] May, 2013 [facility] [place] [facility] [address] [id number] [place] [address] May, [facility] [place] [facility] [address] [id number] [place] [address] May, [facility] [place] [facility] [address] [id number] [place] [address] May, [facility] [place] [facility] [address] [id number] [place] [address] May, [facility] [place] [facility] [address] [id number] [place] [address] May, [facility] [place] [facility] [address] [id number] [place] [address] Apr, [facility] [place] [facility] [address] [id number] [place] [address] 30 Apr, 2013 [facility] [place] [facility] [address] [id number] [place] [address] Apr, [facility] [place] [facility] [address] [id number] [place] [address] Apr, [facility] [place] [facility] [address] [id number] [place] [address] Apr, [facility] [place] [facility] [address] [id number] [place] [address] Apr, 2013 [facility] [place] [facility] [address] [id number] [place] [address] Feb, [facility] [place] [facility] [address] [id number] [place] [address] Feb, [facility] [place] [facility] [address] [id number] [place] [address] Feb, [facility] [place] [facility] [address] [id number] [place] [address] Feb, [facility] [place] [facility] [address] [id number] [place] [address] Feb, [facility] [place] [facility] [address] [id number] [place] [address] Feb, [facility] [place] [facility] [address] [id number] [place] [address] Jan, [facility] [place] [facility] [address] [id number] [place] [address] Jan, [facility] [place] [facility] [address] [id number] [place] [address] Jan, [facility] [place] [facility] [address] [id number] [place] [address] Jan, [facility] [place] [facility] [address] [id number] [place] [address] Jan, [facility] [place] [facility] [address] [id number] [place] [address] Jan, [facility] [place] [facility] [address] [id number] [place] [address] Jan, [facility] [place] [facility] [address] [id number] [place] [address] Jan, [facility] [place] [facility] [address] [id number] [place] [address] December, [facility] [place] [facility] [address] [id number], [place] [address] December, [facility] [place] [facility] [address] [id number] [place] [address] December, [facility] [place] [facility] [address] [id number] [place] [address] December, [facility] [place] [facility] [address] [id number] [place] [address] Nov, [facility] [place] [facility] [address] [id number], [place] [address] Nov, [facility] [place] [facility] [address] [id number] [place] [address] Nov, [facility] [place] [facility] [address] [id number] [place] [address] Nov, [facility] [place] [facility] [address] [id number] [place] [address] Nov, [facility] [place] [facility] [address] [id number] [place] [address] Nov, [facility] [place] [facility] [address] [id number] [place] [address] Nov, [facility] [place] [facility] [address] [facility] [id number] [place] [address] Nov, [facility] [address] [facility] [id number] [place] [address] Oct, [facility] [place] [facility] [address] [facility] [id number] [place] [address] Oct, [facility] [place] [facility] [address] [id number] [place] [address] Sep, [facility] [place] [facility] [address] [facility] [id number] [place] [address] Sep, [facility] [place] [facility] [address] [id number] [id number] Sep, [facility] [place] [facility] [address] [facility] [id number], [place] [address] Sep, [facility] [place] [facility] [address] [facility] [id number] [place] [address] Sep, [facility] [place] [facility] [address] [facility] [id number] [place] [address] Sep, [facility] [place] [facility] [address] [facility] [id number], [place] [address] Aug, [facility] [place] [facility] [address] [id number] [place] [address] Aug, [facility] [place] [facility] [address] [id number] [place] [address] Aug, [facility] [place] [facility] [address] [id number] [place] [address] Aug, [facility] [place] [facility] [address] [id number] [place] [address] Jul, [facility] [address] [id number] [place] [address] Jul, [facility] [place] [facility] [address] [id number] [place] [address] Jul, [facility] [address] [id number] [place] [address] Jul, [facility] [place] [facility] [address] [id number] [place] [address] Jun, [facility] [place] [facility] [address] [id number] [place] [address] Jun, [facility] [place] [facility] [address] [id number] [place] [address] May, [facility] [place] [facility] [address] [id number] [place] [address] May, [facility] [place] [facility] [address] [id number], [place] [address] May, [facility] [place] [facility] [address] [id number] [place] [address] May, [facility] [place] [facility] [address] [id number] [place] [address] 10 May, 2013 [facility] [place] [facility] [address] [id number] [place] [address] 17 Apr, 2013 [facility] [place] [facility] [address] [id number] [place] [address] Apr, [facility] [place] [facility] [address] [id number] [place] [address] Mar, [facility] [place] [facility] [address] [id number] [place] [address] Mar, [facility] [place] [facility] [address] [id number] [place] [address] Mar, [facility] [place] [facility] [address] [id number] [place] [address] Mar, [facility] [place] [facility] [address] [id number] [place] [address] Feb, [facility] [place] [facility] [address] [id number] [place] [address] Feb, [facility] [place] [facility] [address] [id number] [place] [address] Feb, [facility] [place] [facility] [address] [id number] [place] [address] Feb, [facility] [place] [facility] [address] [id number] [place] [address] Feb, [facility] [place] [facility] [address] [id number] [place] [address] Jan, [facility] [place] [facility] [address] [id number] [place] [address] Jan, [facility] [place] [facility] [address] [id number] [place] [address] Jan, [facility] [place] [facility] [address] [id number] [place] [address] Jan, [facility] [place] [facility] [address] [id number] [place] [address] Jan, [facility] [place] [facility] [address] [id number] [place] [address] December, [facility] [place] [facility] [address] [id number] [place] [address] December, [facility] [address] [id number] [place] [address] Nov, [facility] [address] [id number] [place] [address] Nov, [facility] [address] [id number] [place] [address] Oct, [facility] [address] [id number] [place] [address] Oct, [facility] [address] [id number] [place] [address] 05 Oct, 2012 [facility] [address] [id number] [place] [address] 14 Sep, 2012 [facility] [address] [id number] [place] [address] 24 Aug, 2012 [facility] [address] [id number] [place] [address] Aug, [facility] [address] [id number] [place] [address] Aug, [facility] [address] [id number] [place] [address] Aug, [facility] [address] [id number] [place] [address] Jul, [facility] [address] [id number] [place] [address] Jul, [facility] [address] [id number] [place] [address] Jul, [facility] [address] [id number] [place] [address] Jul, [facility] [address] [id number] [place] [address] Jul, [facility] [place] [facility] [address] [id number] [place] [address] Jul, [facility] [place] [facility] [address] [id number] [place] [address] Jul, [facility] [place] [facility] [address] [id number] [place] [address] Jul, [facility] [place] [facility] [address] [id number] [place] [address] Jun, [facility] [place] [facility] [address] [id number] [place] [address] Jun, [facility] [place] [facility] [address] [id number] [place] [address] Jun, [facility] [place] [facility] [address] [id number] [place] [address] Jun, [facility] [place] [facility] [address] [id number] [place] [address] Jun, [facility] [place] [facility] [address] [id number] [place] [address] Jun, [facility] [place] [facility] [address] [facility] [id number], [place] [address] May, [facility] [place] [facility] [address] [id number], [place] [address] May, [facility] [place] [facility] [address] [id number], [place] [address] May, [facility] [place] [facility] [address] [id number] [place] [address] May, [facility] [place] [facility] [address] [id number], [place] [address] Apr, [facility] [place] [facility] [address] [id number], [place] [address] Apr, [facility] [place] [facility] [address] [id number] [place] [address] 08 Mar, 2012 [facility] [place] [facility] [address] [id number] [place] [address] 28 Jan, 2012 [facility] [place] [facility] [address] [id number] [place] [address] 20 Jan, 2012 [facility] [place] [facility] [address] [id number] [place] [address] 16 Jan, 2012 [facility] [place] [facility] [address] [id number] [place] [address] 15 Jan, 2012 [facility] [place] [facility] [address] [id number] [place] [address] 14 Jan, 2012 [facility] [place] [facility] [address] [id number] [place] [address] 14 Jan, 2012 [facility] [address] [id number] [place] [address] 07 Jan, 2012 [facility] [place] [facility] [address] [id number] [place] [address] December, [facility] [place] [facility] [address] [id number] [place] [address] December, [facility] [place] [facility] [address] [id number] [place] [address] December, [facility] [place] [facility] [address] [id number] [place] [address] December, [facility] [place] [facility] [address] [id number] [place] [address] Nov, [facility] [place] [facility] [address] [id number] [place] [address] 05 Nov, 2011 [facility] [place] [facility] [address] [id number] [place] [address] 29 Oct, 2011 [facility] [place] [facility] [address] [id number] [place] [address] Oct, [facility] [place] [facility] [address] [id number] [place] [address] Oct, [facility] [address] [id number] [place] [address] Sep, [facility] [place] [facility] [address] [id number] [place] [address] Sep, [facility] [address] [id number] [place] [address] Sep, [facility] [address] [id number] [place] [address] Aug, [facility] [address] [id number] [place] [address] Aug, [facility] [address] [id number] [place] [address] Aug, [facility] [address] [id number] [place] [address] Aug, [facility] [address] [id number] [place] [address] Aug, [facility] [address] [id number] [place] [address] Aug, [facility] [address] [id number] [place] [address] Aug, [facility] [address] [id number] [place] [address] Jul, [facility] [place] [facility] [address] [id number] [place] [address] Jul, [facility] [place] [facility] [address] [id number] [place] [address] Jun, [facility] [place] [facility] [address] [id number] [place] [address] Jun, [facility] [place] [facility] [address] [id number] [place] [address] 17 Jun, 2011 [facility] [place] [facility] [address] [id number] [place] [address] 15 Jun, 2011 [facility] [place] [facility] [address] [id number] [place] [address] Jun, [facility] [place] [facility] [address] [id number] [place] [address] Jun, [facility] [place] [facility] [address] [id number] [place] [address] Jun, [facility] [place] [facility] [address] [id number] [place] [address] Jun, [facility] [place] [facility] [address] [id number] [place] [address] Jun, [facility] [place] [facility] [address] [id number] [place] [address] Jun, [facility] [place] [facility] [address] [id number] [place] [address] May, [facility] [place] [facility] [address] [id number] [place] [address] May, [facility] [place] [facility] [address] [id number] [place] [address] May, [facility] [place] [facility] [address] [id number], [place] [address] 24 May, 2011 [facility] [place] [facility] [address] [id number], [place] [address] 18 May, 2011 [facility] [place] [facility] [address] [id number] [place] [address] May, [facility] [place] [facility] [address] [id number] [place] [address] Feb, [facility] [place] [facility] [address] [id number] [place] [address] December, [facility] [place] [facility] [id number], [place] [address] Jul, [facility] [place] [id number], [place] [address] Jul, [facility] [place] [id number], [place] [address] Jul, [facility] [place] [id number], [place] [address] Jul, [facility] [place] [id number], [place] [address] Jun, [facility] [place] [id number] [place] [address] Jul, [facility] [place] [id number], [place] [address] Jul, [facility] [place] [id number] [place] [address] Jul, [facility] [place] [id number], [place] [address] Jul, [facility] [place] [id number] [place] [address] Jul, [facility] [place] [id number], [place] [address] Jul, [facility] [place] [id number], [place] [address] Jan, [facility] [place] [id number] [address] Sep, [facility] [place] [id number], [place] [address] Sep, IMMUNIZATIONS No Known Immunizations SOCIAL HISTORY Never Assessed REASON FOR VISIT [id number]-[facility] PLAN OF CARE VITAL SIGNS MEDICATIONS Unknown [...]
--- OUTSIDE RECORDS SUMMARY | 2019-01-22 20:36 | XMS REPORT ---
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 Name Role Phone Migration, Doctor Unavailable Unavailable PROBLEMS Type Condition ICD9-CM Code [id number] Code Onset Dates Condition Status SNOMED Code Problem Hypertension I10 Active 17439198 Problem Generalized anxiety disorder F41.1 Active 544866712 Problem History of colon polyps Z86.010 Active 546314663 Problem History of diverticulitis Z87.19 Active 805346591684127 Problem Family history of diabetes mellitus Z83.3 Active 182295944 Problem Excessive and frequent menstruation with irregular cycle N92.1 Active 695821786 Problem Hot flashes N95.1 Active 953359252 Problem Gastroesophageal reflux disease with esophagitis K21.0 Active 206986396 Problem History of ovarian cyst Z87.42 Active 91271670 Problem Diverticulitis K57.92 Active 042293921 Problem Dense breast tissue R92.2 Active 032437430 Problem Perimenopausal N95.1 Active 030004300758882 Problem Mitral valve prolapse I34.1 Active 874827465 Problem Abnormal uterine bleeding (AUB) N93.9 Active 40439065097578 Problem Tachycardia R00.0 Active 0236553 ALLERGIES No Information ENCOUNTERS Encounter Location Date Diagnosis [facility] [address] [id number] [address] Jan, [facility] [id number] [place] [address] December, [facility] [address] [place] [address] December, [facility] [address], [place] [address] Nov, Diverticulitis K57.92 [facility] [address] [id number], [place] [address] Nov, Generalized anxiety disorder F41.1 and Bereavement Z63.4 [facility] [address], [place] [address] Nov, Generalized anxiety disorder F41.1 and Bereavement Z63.4 [facility] [address], [place] [address] Nov, Diverticulitis K57.92 [facility] [address] [place] [address] Oct, Diverticulitis K57.92 [facility] [address] [place] [address] Oct, Diverticulitis K57.92 [facility] [address] [place] [address] Oct, Generalized anxiety disorder F41.1 [facility] [address] [place] [address] Oct, Right lower quadrant abdominal pain R10.31 and Diverticulitis K57.92 [facility] [address] [place] [address] Sep, Generalized anxiety disorder F41.1 and Bereavement Z63.4 [facility] [address], [place] [address] Aug, [facility] [address] [place] [address] Aug, Generalized anxiety disorder F41.1 and Bereavement Z63.4 [facility] [address] [place], [id number] [address] Aug, Caries K02.9 [facility] [address], [place] [address] Jul, Generalized anxiety disorder F41.1 and Bereavement Z63.4 [facility] [address] [place] [address] Jul, Other acute gastritis without hemorrhage K29.00 ; Generalized anxiety disorder F41.1 ; Tachycardia R00.0 and Essential hypertension I10 [facility] [id number] [place] [address] Jul, Generalized anxiety disorder F41.1 and Bereavement Z63.4 [facility] [id number] [place] [address] Jun, Generalized anxiety disorder F41.1 and Bereavement Z63.4 [facility] [id number] [place] [address] Jun, Generalized anxiety disorder F41.1 and Bereavement Z63.4 [facility] [id number] [place] [address] Jun, Dental examination Z01.20 [facility] [id number] [place] [address] May, Generalized anxiety disorder F41.1 and Bereavement Z63.4 [facility] [id number] [place] [address] May, Encounter for immunization Z23 [facility] [id number] [place] [address] May, Generalized anxiety disorder F41.1 and Bereavement Z63.4 [facility] [id number] [place] [address] May, [facility] [id number] [place] [address] 24 Apr, 2018 Generalized anxiety disorder F41.1 and Bereavement Z63.4 [facility] [id number] [place] [address] 17 Apr, 2018 [facility] [id number] [place] [address] 13 Apr, 2018 Diverticulitis K57.92 [facility] [address], [place] [address] Apr, Generalized anxiety disorder F41.1 and Bereavement Z63.4 [facility] [address], [place] [address] Mar, [facility] [address] [place] [address] Mar, Diverticulitis K57.92 [facility] [id number] [place] [address] Mar, Generalized anxiety disorder F41.1 and Bereavement Z63.4 [facility] [id number] [place] [address] Mar, Hypertension I10 [facility] [id number] [place] [address] Mar, Generalized anxiety disorder F41.1 and Bereavement Z63.4 [facility] [id number] [place] [address] Feb, Generalized anxiety disorder F41.1 and Bereavement Z63.4 [facility] [id number] [place] [address] Feb, [facility] [address] [place] [address] Feb, Generalized anxiety disorder F41.1 and Bereavement Z63.4 [facility] [id number] [place] [address] Feb, Generalized anxiety disorder F41.1 and Bereavement Z63.4 [facility] [id number] [place] [address] Jan, Hypertension I10 and Acute non-recurrent maxillary sinusitis J01.00 [facility] [id number] [place] [address] December, [facility] [address] [facility] [id number], [place] [address] December, Hypertension I10 [facility] [address] [id number], [place] [address] December, Generalized anxiety disorder F41.1 [facility] [address] [id number], [place] [address] Oct, Encounter for dental examination Z01.20 [facility] [address] [id number], [place] [address] Oct, Encounter for dental examination Z01.20 [facility] [id number] [place] [address] Oct, Dental examination Z01.20 [facility] [address] [id number], [place] [address] Oct, Generalized anxiety disorder F41.1 [facility] [id number] [place] [address] Aug, Dental examination Z01.20 [facility] [address] [id number], [place] [address] Aug, Generalized anxiety disorder F41.1 [facility] [id number], [place] [address] Aug, [facility] [address] [id number], [place] [address] Aug, Encounter for dental examination Z01.20 [facility] [address] [facility] [id number], [place] [address] Aug, Subacute maxillary sinusitis J01.00 [facility] [address] [id number], [place] [address] Jul, Dental examination Z01.20 [facility] [id number], [place] [address] Jul, Generalized anxiety disorder F41.1 [facility] [address], [place] [address] Jul, Diverticulitis K57.92 [facility] [address], [place] [address] 28 Jun, 2017 Encounter for immunization Z23 [facility] [id number] [place] [address] Jun, Dental examination Z01.20 [facility] [id number] [place] [address] 14 Jun, 2017 Generalized anxiety disorder F41.1 [facility] [id number] [place] [address] 07 Jun, 2017 Dental examination Z01.20 [facility] [id number] [place] [address] May, [facility] [id number] [place] [id number] May, Dental examination Z01.20 [facility] [address] [id number] May, Dental examination Z01.20 [facility] [id number] [place] [address] May, Dental examination Z01.20 [facility] [address] [place] [address] May, [facility] [address] [place] [address] May, Generalized anxiety disorder F41.1 [facility] [id number] [place] [address] 05 May, 2017 Localized edema R60.0 ; Yeast vaginitis B37.3 and Gastroesophageal reflux disease with esophagitis K21.0 [facility] [id number] [place] [id number] Apr, Dental examination Z01.20 [facility] [address] [id number], [place] [address] Apr, Dental examination Z01.20 [facility] [address] [id number], [place] [address] 05 Apr, 2017 Dental examination Z01.20 [facility] [address], [place] [address] Mar, Dyspepsia R10.13 [facility] [address], [place] [address] Mar, Generalized anxiety disorder F41.1 [facility] [address] [id number], [place] [address] Mar, Encounter for dental examination Z01.20 [facility] [id number] [place] [id number] Mar, [facility] [address] [id number] Mar, Dental examination Z01.20 [facility] [address], [place] [address] Feb, Hypertension I10 and Tachycardia R00.0 [facility] [address] [id number], [place] [address] Feb, [facility] [address], [place] [address] Feb, Generalized anxiety disorder F41.1 [facility] [address] [id number] [id number] Feb, Dental examination Z01.20 [facility] [id number], [place] [address] Jan, Generalized anxiety disorder F41.1 [facility] [id number], [place] [address] December, Generalized anxiety disorder F41.1 [facility] [address] [id number] December, Encounter for dental examination Z01.20 [facility] [id number] [place] [address] Nov, [facility] [id number] [place] [address] Nov, [facility] [id number] [place] [address] Nov, Generalized anxiety disorder F41.1 [facility] [id number] [place] [address] Oct, [facility] [address] [place] [id number] Oct, Dental examination Z01.20 [facility] [id number] [place] [address] Oct, Vaginal dryness N89.8 [facility] [id number] [place] [address] Oct, Pseudoseizures F44.5 [facility] [id number] [place] [address] Oct, Generalized anxiety disorder F41.1 [facility] [id number] [place] [address] Sep, Abnormal uterine bleeding (AUB) N93.9 ; Vaginal dryness N89.8 and Screening breast examination Z12.39 [facility] [address] [place] [address] Sep, Dental examination Z01.20 [facility] [id number] [place] [address] Sep, Generalized anxiety disorder F41.1 [facility] [address] [place] [address] Sep, Unspecified ovarian cyst, right side N83.201 ; Unspecified ovarian cyst, left side N83.202 ; Yeast infection of the vagina B37.3 ; Mitral valve prolapse I34.1 and Hypertension I10 [facility] [address], [place] [address] Aug, Generalized anxiety disorder F41.1 [facility] [id number] [place] [address] Jul, [facility] [id number] [place] [address] Jul, Generalized anxiety disorder F41.1 [facility] [id number] [place] [address] Jun, Generalized anxiety disorder F41.1 [address] [id number] [place] [address] May, Encounter for immunization Z23 [facility] [id number] [place] [address] 17 May, 2016 Generalized anxiety disorder F41.1 and Depressive disorder, not elsewhere classified F32.9 [facility] [id number] [place] [address] 28 Apr, 2016 Hypertension I10 [facility] [id number] [place] [address] 22 Apr, 2016 Cervicalgia M54.2 [facility] [id number] [place] [address] 12 Apr, 2016 Cervicalgia M54.2 [facility] [id number] [place] [address] 09 Mar, 2016 Generalized anxiety disorder F41.1 and Depressive disorder, not elsewhere classified F32.9 [facility] [address] [place] [id number] 14 Feb, 2016 Visit for dental examination Z01.20 [facility] [address] [place], [place] [address] 11 Feb, 2016 Pseudoseizures F44.5 ; Migraine without status migrainosus, not intractable, unspecified migraine type G43.909 and Essential hypertension I10 [facility] [address] [address] 06 Feb, 2016 Dental examination Z01.20 [facility] [facility] [id number] [place] [address] Feb, Generalized anxiety disorder F41.1 and Depressive disorder, not elsewhere classified F32.9 [facility] [address] [place] [address] Jan, Tachycardia R00.0 [facility] [facility] [address] [place] [address] December, Eustachian tube dysfunction, bilateral H69.83 [facility] [facility] [address] [place] [address] December, Generalized anxiety disorder F41.1 and Depressive disorder, not elsewhere classified F32.9 [facility] [facility] [address] [place] [address] Nov, [facility] [facility] [address] [place] [address] Nov, [facility] [facility] [address] [place] [address] Nov, Hypertension I10 ; Onychomycosis B35.1 ; [...] and Complex cyst of left ovary N83.29 [place] [address] [address] 14 Nov, 2015 Sinusitis J32.9 [address] [address] [address] Oct, Complex cyst of left ovary N83.29 [address] [address] [address] Oct, Onychomycosis B35.1 [facility] [address] [id number] 17 Oct, 2015 Dental examination Z01.20 [address] [place] [address] 09 Oct, 2015 Well woman exam Z01.419 [...] R92.2 and History of colon polyps Z86.010 [place] [address] [address] Oct, Generalized anxiety disorder F41.1 and Depressive disorder, not elsewhere classified F32.9 [facility] [address] [place] [address] Sep, Hypertension I10 and Onychomycosis B35.1 [address] [place] [address] [address] Sep, Skin tags, multiple acquired L91.8 [place] [address] [address] Aug, [place] [facility] [address] [address] Aug, [facility] [id number] [place] [address] Aug, [facility] [address] [address] Aug, Generalized anxiety disorder F41.1 and Depressive disorder, not elsewhere classified F32.9 [facility] [address] [place] [address] Jul, Skin lesion L98.9 [facility] [address] [address] Jun, Generalized anxiety disorder F41.1 and Depressive disorder, not elsewhere classified F32.9 [place] [address] [place] [address] Jun, [place] [address] [address] Jun, Generalized anxiety disorder F41.1 [facility] [address] [place] [address] May, Encounter for immunization Z23 and Right shoulder pain M25.511 [place] [address] [place] [address] Apr, [facility] [id number] [place] [address] Apr, Generalized anxiety disorder 300.02 and Depressive disorder, not elsewhere classified 311 [facility] [id number] [place] [id number] Mar, Dental examination V72.2 [facility] [id number] [place] [address] Mar, Generalized anxiety disorder 300.02 and Depressive disorder, not elsewhere classified 311 [facility] [id number] [place] [address] Mar, Depression, major, recurrent, 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.35 and 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 [facility] [address], [place] [address] Feb, Generalized anxiety disorder 300.02 and Depressive disorder, not elsewhere classified 311 [facility] [id number] [id number] 07 Feb, 2015 Dental examination V72.2 [facility] [address] [place] [address] Jan, Generalized anxiety disorder 300.02 and Depressive disorder, not elsewhere classified 311 [facility] [address] [place] [address] Jan, [facility] [address] [place] [address] December, Generalized anxiety disorder 300.02 and Depressive disorder, not elsewhere classified 311 [facility] [address] [place] [address] December, Major depressive disorder, recurrent, unspecified 296.30 and Panic disorder with agoraphobia 300.21 [facility] [address], [place] [address] Nov, [facility] [address], [place] [address] Nov, [facility] [address], [place] [address] Oct, [facility] [address], [place] [address] Oct, [facility] [address], [place] [address] Oct, [facility] [address], [place] [address] Oct, [facility] [address], [place] [address] Sep, [facility] [id number] [place] [address] Sep, 2014 [facility] [place] [facility] [address] [id number] [place] [address] Sep, 2014 [facility] [place] [facility] [address] [id number] [place] [address] Sep, 2014 [facility] [place] [facility] [address] [id number] [place] [address] Sep, 2014 [facility] [place] [facility] [address] [id number] [place] [address] Sep, 2014 [facility] [place] [facility] [address] [id number] [place] [address] Sep, 2014 [facility] [place] [facility] [address] [facility] [id number] [place] [address] Sep, 2014 [facility] [place] [facility] [address] [facility] [id number] [place] [address] Sep, 2014 [facility] [place] [facility] [address] [facility] [id number] [place] [address] Sep, 2014 [facility] [place] [facility] [address] [facility] [id number] [place] [address] Aug, [facility] [place] [facility] [address] [facility] [id number] [place] [address] Aug, [facility] [place] [facility] [address] [id number] [place] [address] Jul, [facility] [place] [facility] [address] [id number] [place] [address] Jul, [facility] [place] [facility] [address] [id number] [place] [address] Jul, [facility] [place] [facility] [address] [facility] [id number] [place] [address] Jul, [facility] [place] [facility] [address] [facility] [id number] [place] [address] Jul, [facility] [place] [facility] [address] [id number] [place] [address] Jul, [facility] [place] [facility] [address] [id number] [place] [address] Jul, [facility] [place] [facility] [address] [id number] [place] [address] Jul, [facility] [place] [facility] [address] [id number] [place] [address] Jul, [facility] [place] [facility] [address] [id number] [place] [address] Jul, [facility] [place] [facility] [address] [id number] [place] [address] Jul, [facility] [place] [facility] [address] [id number] [place] [address] Jul, [facility] [place] [facility] [address] [id number] [place] [address] Jun, [facility] [place] [facility] [address] [id number] [place] [address] Jun, [facility] [place] [facility] [address] [id number] [place] [address] May, [facility] [place] [facility] [address] [id number] [place] [address] May, [facility] [place] [facility] [address] [id number], [place] [address] May, [facility] [place] [facility] [address] [id number] [place] [address] May, [facility] [place] [facility] [address] [id number] [place] [address] May, [facility] [place] [facility] [address] [id number] [place] [address] May, [facility] [place] [facility] [address] [id number] [place] [address] May, 2013 [facility] [place] [facility] [address] [id number] [place] [address] May, [facility] [place] [facility] [address] [id number] [place] [address] May, [facility] [place] [facility] [address] [id number] [place] [address] May, [facility] [place] [facility] [address] [id number] [place] [address] May, [facility] [place] [facility] [address] [id number] [place] [address] May, [facility] [place] [facility] [address] [id number] [place] [address] Apr, [facility] [place] [facility] [address] [id number] [place] [address] 30 Apr, 2013 [facility] [place] [facility] [address] [id number] [place] [address] Apr, [facility] [place] [facility] [address] [id number] [place] [address] Apr, [facility] [place] [facility] [address] [id number] [place] [address] Apr, [facility] [place] [facility] [address] [id number] [place] [address] Apr, 2013 [facility] [place] [facility] [address] [id number] [place] [address] Feb, [facility] [place] [facility] [address] [id number] [place] [address] Feb, [facility] [place] [facility] [address] [id number] [place] [address] Feb, [facility] [place] [facility] [address] [id number] [place] [address] Feb, [facility] [place] [facility] [address] [id number] [place] [address] Feb, [facility] [place] [facility] [address] [id number] [place] [address] Feb, [facility] [place] [facility] [address] [id number] [place] [address] Jan, [facility] [place] [facility] [address] [id number] [place] [address] Jan, [facility] [place] [facility] [address] [id number] [place] [address] Jan, [facility] [place] [facility] [address] [id number] [place] [address] Jan, [facility] [place] [facility] [address] [id number] [place] [address] Jan, [facility] [place] [facility] [address] [id number] [place] [address] Jan, [facility] [place] [facility] [address] [id number] [place] [address] Jan, [facility] [place] [facility] [address] [id number] [place] [address] Jan, [facility] [place] [facility] [address] [id number] [place] [address] December, [facility] [place] [facility] [address] [id number], [place] [address] December, [facility] [place] [facility] [address] [id number] [place] [address] December, [facility] [place] [facility] [address] [id number] [place] [address] December, [facility] [place] [facility] [address] [id number] [place] [address] Nov, [facility] [place] [facility] [address] [id number], [place] [address] Nov, [facility] [place] [facility] [address] [id number] [place] [address] Nov, [facility] [place] [facility] [address] [id number] [place] [address] Nov, [facility] [place] [facility] [address] [id number] [place] [address] Nov, [facility] [place] [facility] [address] [id number] [place] [address] Nov, [facility] [place] [facility] [address] [id number] [place] [address] Nov, [facility] [place] [facility] [address] [facility] [id number] [place] [address] Nov, [facility] [address] [facility] [id number] [place] [address] Oct, [facility] [place] [facility] [address] [facility] [id number] [place] [address] Oct, [facility] [place] [facility] [address] [id number] [place] [address] Sep, [facility] [place] [facility] [address] [facility] [id number] [place] [address] Sep, [facility] [place] [facility] [address] [id number] [id number] Sep, [facility] [place] [facility] [address] [facility] [id number], [place] [address] Sep, [facility] [place] [facility] [address] [facility] [id number] [place] [address] Sep, [facility] [place] [facility] [address] [facility] [id number] [place] [address] Sep, [facility] [place] [facility] [address] [facility] [id number], [place] [address] Aug, [facility] [place] [facility] [address] [id number] [place] [address] Aug, [facility] [place] [facility] [address] [id number] [place] [address] Aug, [facility] [place] [facility] [address] [id number] [place] [address] Aug, [facility] [place] [facility] [address] [id number] [place] [address] Jul, [facility] [address] [id number] [place] [address] Jul, [facility] [place] [facility] [address] [id number] [place] [address] Jul, [facility] [address] [id number] [place] [address] Jul, [facility] [place] [facility] [address] [id number] [place] [address] Jun, [facility] [place] [facility] [address] [id number] [place] [address] Jun, [facility] [place] [facility] [address] [id number] [place] [address] May, [facility] [place] [facility] [address] [id number] [place] [address] May, [facility] [place] [facility] [address] [id number], [place] [address] May, [facility] [place] [facility] [address] [id number] [place] [address] May, [facility] [place] [facility] [address] [id number] [place] [address] 10 May, 2013 [facility] [place] [facility] [address] [id number] [place] [address] 17 Apr, 2013 [facility] [place] [facility] [address] [id number] [place] [address] Apr, [facility] [place] [facility] [address] [id number] [place] [address] Mar, [facility] [place] [facility] [address] [id number] [place] [address] Mar, [facility] [place] [facility] [address] [id number] [place] [address] Mar, [facility] [place] [facility] [address] [id number] [place] [address] Mar, [facility] [place] [facility] [address] [id number] [place] [address] Feb, [facility] [place] [facility] [address] [id number] [place] [address] Feb, [facility] [place] [facility] [address] [id number] [place] [address] Feb, [facility] [place] [facility] [address] [id number] [place] [address] Feb, [facility] [place] [facility] [address] [id number] [place] [address] Feb, [facility] [place] [facility] [address] [id number] [place] [address] Jan, [facility] [place] [facility] [address] [id number] [place] [address] Jan, [facility] [place] [facility] [address] [id number] [place] [address] Jan, [facility] [place] [facility] [address] [id number] [place] [address] Jan, [facility] [place] [facility] [address] [id number] [place] [address] Jan, [facility] [place] [facility] [address] [id number] [place] [address] December, [facility] [place] [facility] [address] [id number] [place] [address] December, [facility] [address] [id number] [place] [address] Nov, [facility] [address] [id number] [place] [address] Nov, [facility] [address] [id number] [place] [address] Oct, [facility] [address] [id number] [place] [address] Oct, [facility] [address] [id number] [place] [address] 05 Oct, 2012 [facility] [address] [id number] [place] [address] 14 Sep, 2012 [facility] [address] [id number] [place] [address] 24 Aug, 2012 [facility] [address] [id number] [place] [address] Aug, [facility] [address] [id number] [place] [address] Aug, [facility] [address] [id number] [place] [address] Aug, [facility] [address] [id number] [place] [address] Jul, [facility] [address] [id number] [place] [address] Jul, [facility] [address] [id number] [place] [address] Jul, [facility] [address] [id number] [place] [address] Jul, [facility] [address] [id number] [place] [address] Jul, [facility] [place] [facility] [address] [id number] [place] [address] Jul, [facility] [place] [facility] [address] [id number] [place] [address] Jul, [facility] [place] [facility] [address] [id number] [place] [address] Jul, [facility] [place] [facility] [address] [id number] [place] [address] Jun, [facility] [place] [facility] [address] [id number] [place] [address] Jun, [facility] [place] [facility] [address] [id number] [place] [address] Jun, [facility] [place] [facility] [address] [id number] [place] [address] Jun, [facility] [place] [facility] [address] [id number] [place] [address] Jun, [facility] [place] [facility] [address] [id number] [place] [address] Jun, [facility] [place] [facility] [address] [facility] [id number], [place] [address] May, [facility] [place] [facility] [address] [id number], [place] [address] May, [facility] [place] [facility] [address] [id number], [place] [address] May, [facility] [place] [facility] [address] [id number] [place] [address] May, [facility] [place] [facility] [address] [id number], [place] [address] Apr, [facility] [place] [facility] [address] [id number], [place] [address] Apr, [facility] [place] [facility] [address] [id number] [place] [address] 08 Mar, 2012 [facility] [place] [facility] [address] [id number] [place] [address] 28 Jan, 2012 [facility] [place] [facility] [address] [id number] [place] [address] 20 Jan, 2012 [facility] [place] [facility] [address] [id number] [place] [address] 16 Jan, 2012 [facility] [place] [facility] [address] [id number] [place] [address] 15 Jan, 2012 [facility] [place] [facility] [address] [id number] [place] [address] 14 Jan, 2012 [facility] [place] [facility] [address] [id number] [place] [address] 14 Jan, 2012 [facility] [address] [id number] [place] [address] 07 Jan, 2012 [facility] [place] [facility] [address] [id number] [place] [address] December, [facility] [place] [facility] [address] [id number] [place] [address] December, [facility] [place] [facility] [address] [id number] [place] [address] December, [facility] [place] [facility] [address] [id number] [place] [address] December, [facility] [place] [facility] [address] [id number] [place] [address] Nov, [facility] [place] [facility] [address] [id number] [place] [address] 05 Nov, 2011 [facility] [place] [facility] [address] [id number] [place] [address] 29 Oct, 2011 [facility] [place] [facility] [address] [id number] [place] [address] Oct, [facility] [place] [facility] [address] [id number] [place] [address] Oct, [facility] [address] [id number] [place] [address] Sep, [facility] [place] [facility] [address] [id number] [place] [address] Sep, [facility] [address] [id number] [place] [address] Sep, [facility] [address] [id number] [place] [address] Aug, [facility] [address] [id number] [place] [address] Aug, [facility] [address] [id number] [place] [address] Aug, [facility] [address] [id number] [place] [address] Aug, [facility] [address] [id number] [place] [address] Aug, [facility] [address] [id number] [place] [address] Aug, [facility] [address] [id number] [place] [address] Aug, [facility] [address] [id number] [place] [address] Jul, [facility] [place] [facility] [address] [id number] [place] [address] Jul, [facility] [place] [facility] [address] [id number] [place] [address] Jun, [facility] [place] [facility] [address] [id number] [place] [address] Jun, [facility] [place] [facility] [address] [id number] [place] [address] 17 Jun, 2011 [facility] [place] [facility] [address] [id number] [place] [address] 15 Jun, 2011 [facility] [place] [facility] [address] [id number] [place] [address] Jun, [facility] [place] [facility] [address] [id number] [place] [address] Jun, [facility] [place] [facility] [address] [id number] [place] [address] Jun, [facility] [place] [facility] [address] [id number] [place] [address] Jun, [facility] [place] [facility] [address] [id number] [place] [address] Jun, [facility] [place] [facility] [address] [id number] [place] [address] Jun, [facility] [place] [facility] [address] [id number] [place] [address] May, [facility] [place] [facility] [address] [id number] [place] [address] May, [facility] [place] [facility] [address] [id number] [place] [address] May, [facility] [place] [facility] [address] [id number], [place] [address] 24 May, 2011 [facility] [place] [facility] [address] [id number], [place] [address] 18 May, 2011 [facility] [place] [facility] [address] [id number] [place] [address] May, [facility] [place] [facility] [address] [id number] [place] [address] Feb, [facility] [place] [facility] [address] [id number] [place] [address] December, [facility] [place] [facility] [id number], [place] [address] Jul, [facility] [id number], [place] [address] Jul, [facility] [id number], [place] [address] Jul, [facility] [id number], [place] [address] Jul, [facility] [id number], [place] [address] Jun, [facility] [id number] [place] [address] Jul, [facility] [id number], [place] [address] Jul, [facility] [id number] [place] [address] Jul, [facility] [id number], [place] [address] Jul, [facility] [id number] [place] [address] Jul, [facility] [id number], [place] [address] Jul, [facility] [id number], [place] [address] Jan, [facility] [address] [id number], [place] [address] Sep, [facility] [id number], [place] [address] Sep, IMMUNIZATIONS No Known Immunizations SOCIAL HISTORY Never Assessed REASON FOR VISIT EMR-[facility] [place] PLAN OF CARE VITAL SIGNS MEDICATIONS Unknown [...]
--- OUTSIDE RECORDS SUMMARY | 2019-01-22 20:37 | XMS REPORT ---
Author Author Migration, Doctor Organization [facility] Address Unknown Phone Unavailable Care Team Providers Care Grinder Needle Tip Name Role Phone Migration, Doctor Unavailable Unavailable PROBLEMS Type Condition ICD9-CM Code VCP30-OG Code Onset Dates Condition Status SNOMED Code Problem Hypertension I10 Active 10355351 Problem Generalized anxiety disorder F41.1 Active 058433374 Problem History of colon polyps Z86.010 Active 085703597 Problem History of diverticulitis Z87.19 Active 920924800266952 Problem Family history of diabetes mellitus Z83.3 Active 893189473 Problem Excessive and frequent menstruation with irregular cycle N92.1 Active 854243599 Problem Hot flashes N95.1 Active 928536420 Problem Gastroesophageal reflux disease with esophagitis K21.0 Active 966265198 Problem History of ovarian cyst Z87.42 Active 85770081 Problem Diverticulitis K57.92 Active 727517478 Problem Dense breast tissue R92.2 Active 516861608 Problem Perimenopausal N95.1 Active 849732226520976 Problem Mitral valve prolapse I34.1 Active 961760984 Problem Abnormal uterine bleeding (AUB) N93.9 Active 39804471469446 Problem Tachycardia R00.0 Active 0761105 ALLERGIES No Information ENCOUNTERS Encounter Location Date Diagnosis [facility] [address] [id number], [place] [address] December, [facility] [id number] [place] [address] Nov, [facility] [address], [place] [address] Nov, [facility] [address], [place] [address] Oct, Diverticulitis K57.92 [facility] [address] [id number], [place] [address] Oct, Diverticulitis K57.92 [facility] [address] [place] [address] Oct, Generalized anxiety disorder F41.1 [facility] [address] [place] [address] Oct, Right lower quadrant abdominal pain R10.31 and Diverticulitis K57.92 [facility] [id number] [place] [address] Sep, Generalized anxiety disorder F41.1 and Bereavement Z63.4 [facility] [id number] [place] [address] Aug, [facility] [id number] [place] [address] Aug, Generalized anxiety disorder F41.1 and Bereavement Z63.4 [facility] [address] [place], [place] [id number] [place] [address] Aug, Caries K02.9 [facility] [id number] [place] [address] Jul, Generalized anxiety disorder F41.1 and Bereavement Z63.4 [facility] [address] [place] [address] Jul, Other acute gastritis without hemorrhage K29.00 ; Generalized anxiety disorder F41.1 ; Tachycardia R00.0 and Essential hypertension I10 [facility] [address] [place] [address] Jul, Generalized anxiety disorder F41.1 and Bereavement Z63.4 [facility] [id number] [place] [address] Jun, Generalized anxiety disorder F41.1 and Bereavement Z63.4 [facility] [address] [place] [address] Jun, Generalized anxiety disorder F41.1 and Bereavement Z63.4 [facility] [address] [id number] [address] Jun, Dental examination Z01.20 [facility] [address] [place] [address] May, Generalized anxiety disorder F41.1 and Bereavement Z63.4 [facility] [id number] [place] [address] May, Encounter for immunization Z23 [facility] [id number] [place] [address] May, Generalized anxiety disorder F41.1 and Bereavement Z63.4 [facility] [address] [place] [address] May, [facility] [id number] [place] [address] 24 Apr, 2018 Generalized anxiety disorder F41.1 and Bereavement Z63.4 [facility] [address] [place] [address] 17 Apr, 2018 [facility] [id number] [place] [address] 13 Apr, 2018 Diverticulitis K57.92 [facility] [address] [place] [address] 10 Apr, 2018 Generalized anxiety disorder F41.1 and Bereavement Z63.4 [facility] [address], [place] [address] Mar, [facility] [id number] [place] [address] Mar, Diverticulitis K57.92 [facility] [address], [place] [address] Mar, Generalized anxiety disorder F41.1 and Bereavement Z63.4 [place] [address], [place] [address] Mar, Hypertension I10 [facility] [id number] [place] [address] Mar, Generalized anxiety disorder F41.1 and Bereavement Z63.4 [facility] [address] [place] [address] Feb, Generalized anxiety disorder F41.1 and Bereavement Z63.4 [facility] [id number] [place] [address] Feb, [facility] [id number] [place] [address] Feb, Generalized anxiety disorder F41.1 and Bereavement Z63.4 [facility] [id number] [place] [address] Feb, Generalized anxiety disorder F41.1 and Bereavement Z63.4 [facility] [id number] [place] [address] Jan, Hypertension I10 and Acute non-recurrent maxillary sinusitis J01.00 [facility] [address] [place] [address] December, [facility] [address] [place] [address] December, Hypertension I10 [facility] [address], [place] [address] December, Generalized anxiety disorder F41.1 [facility] [address] [id number], [place] [address] 16 Oct, 2017 Encounter for dental examination Z01.20 [facility] [address] [id number], [place] [address] 06 Oct, 2017 Encounter for dental examination Z01.20 [facility] [address] [id number], [place] [address] 02 Oct, 2017 Dental examination Z01.20 [facility] [address] [place], [place] [address] Oct, Generalized anxiety disorder F41.1 [facility] [address] [id number], [place] [address] Aug, Dental examination Z01.20 [facility] [id number] [place] [address] Aug, Generalized anxiety disorder F41.1 [facility] [id number] [place] [address] Aug, [facility] [id number] [place] [address] 09 Aug, 2017 Encounter for dental examination Z01.20 [facility] [id number] [place] [address] Aug, Subacute maxillary sinusitis J01.00 [facility] [address] [id number] [address] Jul, Dental examination Z01.20 [facility] [id number] [place] [address] Jul, Generalized anxiety disorder F41.1 [facility] [address] [place] [address] Jul, Diverticulitis K57.92 [facility] [id number] [place] [address] 28 Jun, 2017 Encounter for immunization Z23 [facility] [address] [id number], [place] [address] 22 Jun, 2017 Dental examination Z01.20 [facility] [address], [place] [address] 14 Jun, 2017 Generalized anxiety disorder F41.1 [facility] [address] [id number], [place] [address] Jun, Dental examination Z01.20 [facility] [address] [id number], [place] [address] May, [facility] [address] [id number] [address] May, Dental examination Z01.20 [facility] [id number] [place] [id number] May, Dental examination Z01.20 [facility] [address] [id number], [place] [address] May, Dental examination Z01.20 [facility] [id number] [place] [address] May, [facility] [id number] [place] [address] May, Generalized anxiety disorder F41.1 [facility] [id number] [place] [address] May, Localized edema R60.0 ; Yeast vaginitis B37.3 and Gastroesophageal reflux disease with esophagitis K21.0 [facility] [address] [id number] [id number] Apr, Dental examination Z01.20 [facility] [address] [id number], [place] [address] Apr, Dental examination Z01.20 [facility] [address] [id number], [place] [address] 05 Apr, 2017 Dental examination Z01.20 [facility] [id number] [place] [address] Mar, Dyspepsia R10.13 [facility] [id number] [place] [address] Mar, Generalized anxiety disorder F41.1 [facility] [address] [id number], [place] [address] Mar, Encounter for dental examination Z01.20 [facility] [address] [id number] [id number] Mar, [facility] [address] [id number] [address] Mar, Dental examination Z01.20 [facility] [address] [facility] [id number] [place] [address] Feb, Hypertension I10 and Tachycardia R00.0 [facility] [address] [id number], [place] [address] Feb, [facility] [id number] [place] [address] Feb, Generalized anxiety disorder F41.1 [facility] [id number] [place] [id number] Feb, Dental examination Z01.20 [facility] [address] [facility] [id number] [place] [address] Jan, Generalized anxiety disorder F41.1 [facility] [address] [facility] [id number] [place] [address] December, Generalized anxiety disorder F41.1 [facility] [address] [id number] [address] December, Encounter for dental examination Z01.20 [facility] [address] [id number], [place] [address] Nov, [facility] [address] [facility] [id number] [place] [address] Nov, [facility] [address] [facility] [id number], [place] [address] Nov, Generalized anxiety disorder F41.1 [facility] [address] [facility] [id number] [place] [address] Oct, [facility] [address] [id number] [id number] Oct, Dental examination Z01.20 [facility] [id number] [place] [address] Oct, Vaginal dryness N89.8 [place] [facility] [id number] [place] [address] Oct, Pseudoseizures F44.5 [facility] [id number] [place] [address] Oct, Generalized anxiety disorder F41.1 [facility] [facility] [id number] [place] [address] Sep, Abnormal uterine bleeding (AUB) N93.9 ; Vaginal dryness N89.8 and Screening breast examination Z12.39 [facility] [facility] [id number] [place] [address] Sep, Dental examination Z01.20 [facility] [id number] [place] [address] Sep, Generalized anxiety disorder F41.1 [address] [address] [place] [address] 06 Sep, 2016 Unspecified ovarian cyst, right side N83.201 ; Unspecified ovarian cyst, left side N83.202 ; Yeast infection of the vagina B37.3 ; Mitral valve prolapse I34.1 and Hypertension I10 [facility] [address] [place] [address] Aug, Generalized anxiety disorder F41.1 [address] [address] [place] [address] Jul, [facility] [address] [place] [address] Jul, Generalized anxiety disorder F41.1 [facility] [id number] [place] [address] 15 Jun, 2016 Generalized anxiety disorder F41.1 [facility] [id number] [place] [address] 28 May, 2016 Encounter for immunization Z23 [facility] [id number] [place] [address] 17 May, 2016 Generalized anxiety disorder F41.1 and Depressive disorder, not elsewhere classified F32.9 [facility] [id number] [place] [address] 28 Apr, 2016 Hypertension I10 [facility] [address] [address] 22 Apr, 2016 Cervicalgia M54.2 [facility] [id number] [place] [address] 12 Apr, 2016 Cervicalgia M54.2 [facility] [id number] [place] [address] 09 Mar, 2016 Generalized anxiety disorder F41.1 and Depressive disorder, not elsewhere classified F32.9 [facility] [address] [id number] 14 Feb, 2016 Visit for dental examination Z01.20 [facility] [id number] [place] [address] Feb, Pseudoseizures F44.5 ; Migraine without status migrainosus, not intractable, unspecified migraine type G43.909 and Essential hypertension I10 [facility] [id number] [place] [id number] 06 Feb, 2016 Dental examination Z01.20 [facility] [id number] [place] [address] Feb, Generalized anxiety disorder F41.1 and Depressive disorder, not elsewhere classified F32.9 [facility] [id number] [place] [address] Jan, Tachycardia R00.0 [facility] [address] [place] [address] December, Eustachian tube dysfunction, bilateral H69.83 [facility] [facility] [id number] [place] [address] December, Generalized anxiety disorder F41.1 and Depressive disorder, not elsewhere classified F32.9 [facility] [id number] [place] [address] Nov, [place] [facility] [id number] [place] [address] Nov, [facility] [facility] [id number] [place] [address] Nov, Hypertension I10 ; Onychomycosis B35.1 ; [...] and Complex cyst of left ovary N83.29 [place] [facility] [id number] [place] [address] Nov, Sinusitis J32.9 [facility] [id number] [place] [address] Oct, Complex cyst of left ovary N83.29 [facility] [id number] [place] [address] Oct, Onychomycosis B35.1 [facility] [address] [place] [id number] Oct, Dental examination Z01.20 [facility] [facility] [id number] [place] [address] 09 Mar, 2016 Well woman exam Z01.419 ; Encounter for [...] R92.2 and History of colon polyps Z86.010 [place] [facility] [address] [address] 03 Oct, 2015 Generalized anxiety disorder F41.1 and Depressive disorder, not elsewhere classified F32.9 [place] [facility] [address] [address] 22 Sep, 2015 Hypertension I10 and Onychomycosis B35.1 [place] [facility] [address] [address] 16 Sep, 2015 Skin tags, multiple acquired L91.8 [place] [facility] [address] [address] Aug, [place] [facility] [address] [address] Aug, [place] [address] [address] Aug, [place] [address] [address] Aug, Generalized anxiety disorder F41.1 and Depressive disorder, not elsewhere classified F32.9 [place] [address] [address] Jul, Skin lesion L98.9 [place] [address] [address] Jun, Generalized anxiety disorder F41.1 and Depressive disorder, not elsewhere classified F32.9 [place] [address], [place] [address] Jun, [facility] [id number] [place] [address] Jun, Generalized anxiety disorder F41.1 [facility] [id number] [place] [address] May, Encounter for immunization Z23 and Right shoulder pain M25.511 [facility] [id number] [place] [address] Apr, [facility] [id number] [place] [address] Apr, Generalized anxiety disorder 300.02 and Depressive disorder, not elsewhere classified 311 [facility] [id number] [place] [id number] Mar, Dental examination V72.2 [facility] [id number] [place] [address] Mar, Generalized anxiety disorder 300.02 and Depressive disorder, not elsewhere classified 311 [facility] [id number] [place] [address] Mar, Depression, major, recurrent, 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.35 and 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 [facility] [address] [place] [address] Feb, Generalized anxiety disorder 300.02 and Depressive disorder, not elsewhere classified 311 [facility] [id number] [place] [id number] Feb, Dental examination V72.2 [facility] [address] [address] Jan, Generalized anxiety disorder 300.02 and Depressive disorder, not elsewhere classified 311 [facility] [id number] [place] [address] Jan, [facility] [address], [place] [address] December, Generalized anxiety disorder 300.02 and Depressive disorder, not elsewhere classified 311 [facility] [address] 4787765[place], [place] [address] December, Major depressive disorder, recurrent, unspecified 296.30 and Panic disorder with agoraphobia 300.21 [facility] [id number] [place] [address] Nov, [facility] [address]65[address], [place] [address] Nov, [facility] [id number] [place] [address] Oct, [facility] [id number] [place] [address] Oct, [facility] [id number] [place] [address] Oct, [facility] [address], [place] [address] Oct, [facility] [address] [place] [address] Sep, [facility] [address], [place] [address] Sep, [facility] [address]65[address], [place] [address] Sep, [facility] [address], [place] [address] Sep, [facility] [address], [place] [address] Sep, [facility] [address], [place] [address] Sep, [facility] [address], [place] [address] Sep, 2014 [facility] [place] [facility] [address] [id number] [place] [address] Sep, 2014 [facility] [place] [facility] [address] [id number] [place] [address] Sep, 2014 [facility] [place] [facility] [address] [id number] [place] [address] Sep, 2014 [facility] [place] [facility] [address] [id number] [place] [address] Aug, [facility] [place] [facility] [address] [id number] [place] [address] Aug, [facility] [place] [facility] [address] [id number] [place] [address] Jul, [facility] [address] [id number] [place] [address] Jul, [facility] [place] [facility] [address] [id number] [place] [address] Jul, [facility] [place] [facility] [address] [id number] [place] [address] Jul, [facility] [place] [facility] [address] [facility] [id number] [place] [address] Jul, [facility] [place] [facility] [address] [id number] [place] [address] Jul, [facility] [place] [facility] [address] [id number] [place] [address] 05 Jul, 2014 [facility] [place] [facility] [address] [id number] [place] [address] 05 Jul, 2014 [facility] [place] [facility] [address] [id number] [place] [address] Jul, [facility] [place] [facility] [address] [id number] [place] [address] 04 Jul, 2014 [facility] [place] [facility] [address] [id number] [place] [address] Jul, [facility] [place] [facility] [address] [id number] [place] [address] Jul, [facility] [place] [facility] [address] [id number] [place] [address] Jun, [facility] [place] [facility] [address] [id number] [place] [address] Jun, [facility] [place] [facility] [address] [id number] [place] [address] May, [facility] [place] [facility] [address] [id number] [place] [address] May, [facility] [place] [facility] [address] [id number] [place] [address] May, [facility] [place] [facility] [address] [id number] [place] [address] May, [facility] [place] [facility] [address] [id number] [place] [address] May, [facility] [place] [facility] [address] [id number] [place] [address] May, [facility] [place] [facility] [address] [id number] [place] [address] May, [facility] [place] [facility] [address] [id number] [place] [address] May, [facility] [place] [facility] [address] [id number] [place] [address] May, [facility] [place] [facility] [address] [id number] [place] [address] May, [facility] [place] [facility] [address] [id number] [place] [address] May, [facility] [place] [facility] [address] [id number] [place] [address] May, [facility] [place] [facility] [address] [id number] [place] [address] 30 Apr, 2014 [facility] [place] [facility] [address] [id number] [place] [address] Apr, [facility] [place] [facility] [address] [id number] [place] [address] Apr, [facility] [place] [facility] [address] [id number] [place] [address] Apr, [facility] [place] [facility] [address] [id number] [place] [address] Apr, [facility] [place] [facility] [address] [id number] [place] [address] Apr, [facility] [place] [facility] [address] [id number] [place] [address] Feb, [facility] [place] [facility] [address] [id number] [place] [address] Feb, [facility] [place] [facility] [address] [id number] [place] [address] Feb, [facility] [place] [facility] [address] [id number] [place] [address] Feb, [facility] [place] [facility] [address] [id number] [place] [address] Feb, [facility] [place] [facility] [address] [id number] [place] [address] Feb, [facility] [place] [facility] [address] [id number] [place] [address] Jan, [facility] [place] [facility] [address] [id number] [place] [address] Jan, [facility] [place] [facility] [address] [id number] [place] [address] Jan, [facility] [place] [facility] [address] [id number] [place] [address] Jan, [facility] [address] [id number] [place] [address] Jan, [facility] [place] [facility] [address] [id number] [place] [address] Jan, [facility] [place] [facility] [address] [id number] [place] [address] Jan, [facility] [place] [facility] [address] [id number] [place] [address] Jan, [facility] [place] [facility] [address] [id number] [place] [address] December, [facility] [place] [facility] [address] [id number] [place] [address] December, [facility] [place] [facility] [address] [id number] [place] [address] December, [facility] [place] [facility] [address] [id number] [place] [address] December, [facility] [place] [facility] [address] [id number] [place] [address] Nov, [facility] [place] [facility] [address] [id number] [place] [address] Nov, [facility] [place] [facility] [address] [id number] [place] [address] Nov, [facility] [place] [facility] [address] [id number] [place] [address] Nov, [facility] [place] [facility] [address] [id number] [place] [address] Nov, [facility] [place] [facility] [address] [id number] [place] [address] Nov, [facility] [place] [facility] [address] [id number] [place] [address] Nov, [facility] [address] [id number] [place] [address] Nov, [facility] [place] [facility] [address] [id number] [place] [address] Oct, [facility] [place] [facility] [address] [id number] [place] [address] Oct, [facility] [place] [facility] [address] [id number] [place] [address] Sep, [facility] [address] [id number] [place] [address] Sep, [facility] [place] [facility] [address] [id number] [place] [id number] Sep, [facility] [place] [facility] [address] [id number] [place] [address] Sep, [facility] [place] [facility] [address] [id number], [place] [address] Sep, [facility] [place] [facility] [address] [id number] [place] [address] Sep, [facility] [place] [facility] [address] [id number] [place] [address] Aug, [facility] [place] [facility] [address] [id number], [place] [address] Aug, [facility] [place] [facility] [address] [id number], [place] [address] Aug, [facility] [place] [facility] [address] [id number] [place] [address] Aug, [facility] [place] [facility] [address] [id number] [place] [address] Jul, [facility] [place] [facility] [address] [id number] [place] [address] Jul, [facility] [place] [facility] [address] [id number] [place] [address] Jul, [facility] [place] [facility] [address] [id number] [place] [address] Jul, [facility] [place] [facility] [address] [id number] [place] [address] Jun, [facility] [place] [facility] [address] [id number] [place] [address] Jun, [facility] [place] [facility] [address] [id number] [place] [address] May, [facility] [place] [facility] [address] [id number] [place] [address] May, [facility] [place] [facility] [address] [id number] [place] [address] May, [facility] [place] [facility] [address] [id number] [place] [address] May, [facility] [place] [facility] [address] [id number] [place] [address] May, [facility] [place] [facility] [address] [id number] [place] [address] 17 Apr, 2013 [facility] [place] [facility] [address] [id number] [place] [address] Apr, [facility] [place] [facility] [address] [id number] [place] [address] Mar, [facility] [place] [facility] [address] [id number] [place] [address] Mar, [facility] [place] [facility] [address] [id number] [place] [address] 15 Mar, 2013 [facility] [place] [facility] [address] [id number] [place] [address] Mar, [facility] [place] [facility] [address] [id number] [place] [address] Feb, [facility] [place] [facility] [address] [id number] [place] [address] 17 Feb, 2013 [facility] [address] [id number] [place] [address] Feb, [facility] [place] [facility] [address] [id number] [place] [address] Feb, [facility] [address] [id number] [place] [address] Feb, [facility] [address] [id number] [place] [address] Jan, [facility] [place] [facility] [address] [id number] [place] [address] Jan, [facility] [address] [id number] [place] [address] Jan, [facility] [address] [id number] [place] [address] Jan, [facility] [address] [id number] [place] [address] Jan, [facility] [place] [facility] [address] [id number] [place] [address] December, [facility] [place] [facility] [address] [id number] [place] [address] December, [facility] [place] [facility] [address] [id number] [place] [address] Nov, [facility] [place] [facility] [address] [id number] [place] [address] Nov, [facility] [place] [facility] [address] [id number] [place] [address] Oct, [facility] [place] [facility] [address] [id number] [place] [address] Oct, [facility] [place] [facility] [address] [id number] [place] [address] Oct, [facility] [address] [id number] [place] [address] 14 Sep, 2012 [facility] [place] [facility] [address] [id number] [place] [address] 24 Aug, 2012 [facility] [place] [facility] [address] [id number] [place] [address] 16 Aug, 2012 [facility] [place] [facility] [address] [id number] [place] [address] 15 Aug, 2012 [facility] [address] [id number] [place] [address] Aug, [facility] [address] [id number] [place] [address] Jul, [facility] [address] [id number] [place] [address] Jul, [facility] [place] [facility] [address] [id number] [place] [address] Jul, [facility] [address] [id number] [place] [address] Jul, [facility] [place] [facility] [address] [id number] [place] [address] Jul, [facility] [address] [id number] [place] [address] Jul, [facility] [place] [facility] [address] [id number] [place] [address] Jul, [facility] [place] [facility] [address] [id number] [place] [address] Jul, [facility] [place] [facility] [address] [id number] [place] [address] Jun, [facility] [place] [facility] [address] [id number] [place] [address] Jun, [facility] [place] [facility] [address] [id number] [place] [address] Jun, [facility] [place] [facility] [address] [id number] [place] [address] Jun, [facility] [place] [facility] [address] [id number] [place] [address] Jun, [facility] [place] [facility] [address] [id number] [place] [address] Jun, [facility] [place] [facility] [address] [id number] [place] [address] May, [facility] [place] [facility] [address] [id number] [place] [address], [place] [address] May, [facility] [place] [facility] [address] [id number] [place] [address] May, [facility] [place] [facility] [address] [id number] [place] [address] May, [facility] [place] [facility] [address] [id number] [place] [address] Apr, [facility] [place] [facility] [address] [id number] [place] [address] Apr, [facility] [place] [facility] [address] [facility] [id number] [place] [address] Mar, [facility] [place] [facility] [address] [id number] [place] [address] Jan, [facility] [place] [facility] [address] [id number] [place] [address] 20 Jan, 2012 [facility] [place] [facility] [address] [id number] [place] [address] 16 Jan, 2012 [facility] [place] [facility] [address] [id number] [place] [address] 15 Jan, 2012 [facility] [place] [facility] [address] [id number] [place] [address] Jan, [facility] [address] [id number] [place] [address] 14 Jan, 2012 [facility] [place] [facility] [address] [id number] [place] [address] Jan, [facility] [place] [facility] [address] [id number] [place] [address] December, [facility] [place] [facility] [address] [id number] [place] [address] December, [facility] [address] [id number] [place] [address] December, [facility] [place] [facility] [address] [id number] [place] [address] December, [facility] [place] [facility] [address] [id number] [place] [address] Nov, [facility] [place] [facility] [address] [id number] [place] [address] Nov, [facility] [place] [facility] [address] [id number] [place] [address] Oct, [facility] [place] [facility] [address] [id number] [place] [address] Oct, [facility] [place] [facility] [address] [id number] [place] [address] Oct, [facility] [place] [facility] [address] [id number] [place] [address] Sep, [facility] [place] [facility] [address] [id number] [place] [address] Sep, [facility] [place] [facility] [address] [id number] [place] [address] Sep, [facility] [place] [facility] [address] [id number] [place] [address] Aug, [facility] [place] [facility] [address] [id number] [place] [address] Aug, [facility] [address] [id number] [place] [address] Aug, [facility] [place] [facility] [address] [id number] [place] [address] Aug, [facility] [address] [id number] [place] [address] Aug, [facility] [place] [facility] [address] [id number] [place] [address] Aug, [facility] [address] [id number] [place] [address] Aug, [facility] [place] [facility] [address] [id number] [place] [address] 08 Jul, 2011 [facility] [address] [id number] [place] [address] 02 Jul, 2011 [facility] [place] [facility] [address] [id number] [place] [address] 30 Jun, 2011 [facility] [place] [facility] [address] [id number] [place] [address] 28 Jun, 2011 [facility] [place] [facility] [address] [id number] [place] [address] 17 Jun, 2011 [facility] [place] [facility] [address] [id number] [place] [address] 15 Jun, 2011 [facility] [place] [facility] [address] [id number] [place] [address] 14 Jun, 2011 [facility] [place] [facility] [address] [id number] [place] [address] 14 Jun, 2011 [facility] [place] [facility] [address] [id number] [place] [address] 07 Jun, 2011 [facility] [place] [facility] [address] [id number] [place] [address] 07 Jun, 2011 [facility] [place] [facility] [address] [id number] [place] [address] Jun, [facility] [place] [facility] [address] [id number] [place] [address] Jun, [facility] [place] [facility] [address] [id number] [place] [address] May, [facility] [place] [facility] [address] [id number] [place] [address] May, [facility] [place] [facility] [address] [id number] [place] [address] May, [facility] [place] [facility] [address] [id number] [place] [address] May, [facility] [place] [facility] [address] [id number] [place] [address] May, [facility] [place] [facility] [address] [id number] [place] [address] May, [facility] [place] [facility] [address] [id number] [place] [address] Feb, [facility] [place] [facility] [address] [id number] [place] [address] December, [facility] [place] [facility] [address] [id number] [place] [address] Jul, [facility] [place] [facility] [address] [id number] [place] [address] Jul, [facility] [place] [facility] [address] [id number] [place] [address] Jul, [facility] [place] [facility] [address] [id number] [place] [address] Jul, [facility] [place] [facility] [address] [id number] [place] [address] 15 Jun, 2010 [facility] [place] [facility] [address] [id number], [place] [address] 31 Jul, 2009 [facility] [address] [id number] [address] Jul, [facility] [id number], [place] [address] Jul, [facility] [id number], [place] [address] Jul, [facility] [id number], [place] [address] Jul, [facility] [id number], [place] [address] Jul, [facility] [id number], [place] [address] Jan, [facility] [id number], [place] [address] 16 Sep, 2008 [facility] [id number], [place] [address] Sep, IMMUNIZATIONS No Known Immunizations SOCIAL HISTORY Never Assessed REASON FOR VISIT EMR-[facility] PLAN OF CARE VITAL [...]
--- OUTSIDE RECORDS SUMMARY | 2019-01-22 20:38 | XMS REPORT ---
Author Author Migration, Doctor Organization [facility] Address Unknown Phone Unavailable Care Team Providers Care [place] Deckhand Name Role Phone Migration, Doctor Unavailable Unavailable PROBLEMS Type Condition ICD9-CM Code LGD07-HD Code Onset Dates Condition Status SNOMED Code Problem Hypertension I10 Active 26802512 Problem Generalized anxiety disorder F41.1 Active 106895524 Problem History of colon polyps Z86.010 Active 094094003 Problem History of diverticulitis Z87.19 Active 802029838079077 Problem Family history of diabetes mellitus Z83.3 Active 917761833 Problem Excessive and frequent menstruation with irregular cycle N92.1 Active 774291547 Problem Hot flashes N95.1 Active 955591297 Problem Gastroesophageal reflux disease with esophagitis K21.0 Active 983159492 Problem History of ovarian cyst Z87.42 Active 09372699 Problem Diverticulitis K57.92 Active 407401105 Problem Dense breast tissue R92.2 Active 012158110 Problem Perimenopausal N95.1 Active 674786858577664 Problem Mitral valve prolapse I34.1 Active 736309772 Problem Abnormal uterine bleeding (AUB) N93.9 Active 94259184896249 Problem Tachycardia R00.0 Active 5862258 ALLERGIES No Information ENCOUNTERS Encounter Location Date Diagnosis [facility] [id number] [address] December, [facility] [id number] [place] [address] Nov, [facility] [address] [address] Nov, [facility] [address], [place] [address] Oct, Diverticulitis K57.92 [facility] [id number], [place] [address] Oct, Diverticulitis K57.92 [facility] [address] [place] [address] Oct, Generalized anxiety disorder F41.1 [facility] [address] [place] [address] Oct, Right lower quadrant abdominal pain R10.31 and Diverticulitis K57.92 [facility] [id number] [place] [address] Sep, Generalized anxiety disorder F41.1 and Bereavement Z63.4 [facility] [id number] [place] [address] Aug, [facility] [id number] [place] [address] Aug, Generalized anxiety disorder F41.1 and Bereavement Z63.4 [facility] [address] [place] [id number] [place] [address] Aug, Caries K02.9 [facility] [id number] [place] [address] Jul, Generalized anxiety disorder F41.1 and Bereavement Z63.4 [facility] [address] [place] [address] Jul, Other acute gastritis without hemorrhage K29.00 ; Generalized anxiety disorder F41.1 ; Tachycardia R00.0 and Essential hypertension I10 [facility] [address] [place] [address] Jul, Generalized anxiety disorder F41.1 and Bereavement Z63.4 [facility] [id number] [place] [address] Jun, Generalized anxiety disorder F41.1 and Bereavement Z63.4 [facility] [address] [place] [address] Jun, Generalized anxiety disorder F41.1 and Bereavement Z63.4 [facility] [address] [id number] [address] Jun, Dental examination Z01.20 [facility] [address] [place] [address] May, Generalized anxiety disorder F41.1 and Bereavement Z63.4 [facility] [id number] [place] [address] May, Encounter for immunization Z23 [facility] [id number] [place] [address] May, Generalized anxiety disorder F41.1 and Bereavement Z63.4 [facility] [address] [place] [address] May, [facility] [id number] [place] [address] 24 Apr, 2018 Generalized anxiety disorder F41.1 and Bereavement Z63.4 [facility] [address] [place] [address] 17 Apr, 2018 [facility] [id number] [place] [address] 13 Apr, 2018 Diverticulitis K57.92 [facility] [address] [place] [address] 10 Apr, 2018 Generalized anxiety disorder F41.1 and Bereavement Z63.4 [facility] [address], [place] [address] Mar, [facility] [id number] [place] [address] Mar, Diverticulitis K57.92 [facility] [address], [place] [address] Mar, Generalized anxiety disorder F41.1 and Bereavement Z63.4 [address], [place] [address] Mar, Hypertension I10 [facility] [id number] [place] [address] Mar, Generalized anxiety disorder F41.1 and Bereavement Z63.4 [facility] [address] [place] [address] Feb, Generalized anxiety disorder F41.1 and Bereavement Z63.4 [facility] [id number] [place] [address] Feb, [facility] [id number] [place] [address] Feb, Generalized anxiety disorder F41.1 and Bereavement Z63.4 [facility] [id number] [place] [address] Feb, Generalized anxiety disorder F41.1 and Bereavement Z63.4 [facility] [id number] [place] [address] Jan, Hypertension I10 and Acute non-recurrent maxillary sinusitis J01.00 [facility] [address] [place] [address] December, [facility] [address] [place] [address] December, Hypertension I10 [facility] [address] [address] December, Generalized anxiety disorder F41.1 [facility] [address] [id number], [place] [address] 16 Oct, 2017 Encounter for dental examination Z01.20 [facility] [address] [id number], [place] [address] 06 Oct, 2017 Encounter for dental examination Z01.20 [facility] [address] [id number], [place] [address] 02 Oct, 2017 Dental examination Z01.20 [facility] [address] [id number] [address] Oct, Generalized anxiety disorder F41.1 [facility] [address] [id number], [place] [address] Aug, Dental examination Z01.20 [facility] [id number] [place] [address] Aug, Generalized anxiety disorder F41.1 [facility] [id number] [place] [address] Aug, [facility] [id number] [place] [address] 09 Aug, 2017 Encounter for dental examination Z01.20 [facility] [id number] [place] [address] Aug, Subacute maxillary sinusitis J01.00 [facility] [address] [id number], [place] [address] Jul, Dental examination Z01.20 [facility] [id number] [place] [address] Jul, Generalized anxiety disorder F41.1 [facility] [address] [place] [address] Jul, Diverticulitis K57.92 [facility] [id number] [place] [address] 28 Jun, 2017 Encounter for immunization Z23 [facility] [address] [id number], [place] [address] 22 Jun, 2017 Dental examination Z01.20 [facility] [address], [place] [address] 14 Jun, 2017 Generalized anxiety disorder F41.1 [facility] [address] [id number], [place] [address] Jun, Dental examination Z01.20 [facility] [address] [id number], [place] [address] May, [facility] [address] [id number] [id number] May, Dental examination Z01.20 [facility] [id number] [place] [id number] May, Dental examination Z01.20 [facility] [address] [id number], [place] [address] May, Dental examination Z01.20 [facility] [id number] [place] [address] May, [facility] [id number] [place] [address] May, Generalized anxiety disorder F41.1 [facility] [id number] [place] [address] May, Localized edema R60.0 ; Yeast vaginitis B37.3 and Gastroesophageal reflux disease with esophagitis K21.0 [facility] [address] [id number] [id number] Apr, Dental examination Z01.20 [facility] [address] [id number], [place] [address] Apr, Dental examination Z01.20 [facility] [address] [id number], [place] [address] 05 Apr, 2017 Dental examination Z01.20 [facility] [id number] [place] [address] Mar, Dyspepsia R10.13 [facility] [id number] [place] [address] Mar, Generalized anxiety disorder F41.1 [facility] [address] [id number], [place] [address] Mar, Encounter for dental examination Z01.20 [facility] [address] [id number] [id number] Mar, [facility] [address] [id number] [address] Mar, Dental examination Z01.20 [facility] [address] [facility] [id number] [place] [address] Feb, Hypertension I10 and Tachycardia R00.0 [facility] [address] [id number], [place] [address] Feb, [facility] [id number] [place] [address] Feb, Generalized anxiety disorder F41.1 [facility] [id number] [place] [id number] Feb, Dental examination Z01.20 [facility] [address] [facility] [id number] [place] [address] Jan, Generalized anxiety disorder F41.1 [facility] [address] [facility] [id number] [place] [address] December, Generalized anxiety disorder F41.1 [facility] [address] [id number] [address] December, Encounter for dental examination Z01.20 [facility] [address] [id number], [place] [address] Nov, [facility] [address] [facility] [id number] [place] [address] Nov, [facility] [address] [facility] [id number], [place] [address] Nov, Generalized anxiety disorder F41.1 [facility] [address] [facility] [id number] [place] [address] Oct, [facility] [address] [id number] [address] Oct, Dental examination Z01.20 [facility] [id number] [place] [address] Oct, Vaginal dryness N89.8 [address] [id number] [place] [address] Oct, Pseudoseizures F44.5 [facility] [id number] [place] [address] Oct, Generalized anxiety disorder F41.1 [address] [id number] [place] [address] Sep, Abnormal uterine bleeding (AUB) N93.9 ; Vaginal dryness N89.8 and Screening breast examination Z12.39 [address] [place] [id number] [place] [address] Sep, Dental examination Z01.20 [address] [place] [id number] [place] [address] Sep, Generalized anxiety disorder F41.1 [address] [place] [address] 06 Sep, 2016 Unspecified ovarian cyst, right side N83.201 ; Unspecified ovarian cyst, left side N83.202 ; Yeast infection of the vagina B37.3 ; Mitral valve prolapse I34.1 and Hypertension I10 [facility] [address] [place] [address] Aug, Generalized anxiety disorder F41.1 [address] [place] [address] Jul, [facility] [address] [place] [address] Jul, Generalized anxiety disorder F41.1 [facility] [id number] [place] [address] 15 Jun, 2016 Generalized anxiety disorder F41.1 [facility] [id number] [place] [address] 28 May, 2016 Encounter for immunization Z23 [facility] [id number] [place] [address] 17 May, 2016 Generalized anxiety disorder F41.1 and Depressive disorder, not elsewhere classified F32.9 [facility] [id number] [place] [address] 28 Apr, 2016 Hypertension I10 [facility] [address] [address] 22 Apr, 2016 Cervicalgia M54.2 [facility] [id number] [place] [address] 12 Apr, 2016 Cervicalgia M54.2 [facility] [id number] [place] [address] 09 Mar, 2016 Generalized anxiety disorder F41.1 and Depressive disorder, not elsewhere classified F32.9 [facility] [address] [id number] 14 Feb, 2016 Visit for dental examination Z01.20 [facility] [id number] [place] [address] Feb, Pseudoseizures F44.5 ; Migraine without status migrainosus, not intractable, unspecified migraine type G43.909 and Essential hypertension I10 [facility] [id number] [place] [id number] 06 Feb, 2016 Dental examination Z01.20 [facility] [id number] [place] [address] Feb, Generalized anxiety disorder F41.1 and Depressive disorder, not elsewhere classified F32.9 [facility] [id number] [place] [address] Jan, Tachycardia R00.0 [facility] [address] [place] [address] December, Eustachian tube dysfunction, bilateral H69.83 [address] [place] [id number] [place] [address] December, Generalized anxiety disorder F41.1 and Depressive disorder, not elsewhere classified F32.9 [facility] [id number] [place] [address] Nov, [address] [place] [id number] [place] [address] Nov, [address] [place] [id number] [place] [address] Nov, Hypertension I10 ; Onychomycosis B35.1 ; [...] and Complex cyst of left ovary N83.29 [address] [place] [id number] [place] [address] Nov, Sinusitis J32.9 [address] [place] [id number] [place] [address] Oct, Complex cyst of left ovary N83.29 [address] [place] [id number] [place] [address] Oct, Onychomycosis B35.1 [facility] [address] [place] [id number] Oct, Dental examination Z01.20 [address] [place] [id number] [place] [address] 09 Mar, 2016 Well woman exam Z01.419 [...] R92.2 and History of colon polyps Z86.010 [place] [address] [address] 03 Oct, 2015 Generalized anxiety disorder F41.1 and Depressive disorder, not elsewhere classified F32.9 [place] [address] [address] 22 Sep, 2015 Hypertension I10 and Onychomycosis B35.1 [place] [address] [address] 16 Sep, 2015 Skin tags, multiple acquired L91.8 [address] [address] [address] Aug, [place] [address] [address] Aug, [place] [address] [address] Aug, [place] [address] [address] Aug, Generalized anxiety disorder F41.1 and Depressive disorder, not elsewhere classified F32.9 [place] [address] [address] Jul, Skin lesion L98.9 [place] [address] [address] Jun, Generalized anxiety disorder F41.1 and Depressive disorder, not elsewhere classified F32.9 [place] [address] [address] Jun, [facility] [id number] [place] [address] Jun, Generalized anxiety disorder F41.1 [facility] [id number] [place] [address] May, Encounter for immunization Z23 and Right shoulder pain M25.511 [facility] [id number] [place] [address] Apr, [facility] [id number] [place] [address] Apr, Generalized anxiety disorder 300.02 and Depressive disorder, not elsewhere classified 311 [facility] [id number] [place] [id number] Mar, Dental examination V72.2 [facility] [id number] [place] [address] Mar, Generalized anxiety disorder 300.02 and Depressive disorder, not elsewhere classified 311 [facility] [id number] [place] [address] Mar, Depression, major, recurrent, 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.35 and 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 [facility] [address] [place] [address] Feb, Generalized anxiety disorder 300.02 and Depressive disorder, not elsewhere classified 311 [facility] [id number] [place] [id number] Feb, Dental examination V72.2 [facility] [address] [address] Jan, Generalized anxiety disorder 300.02 and Depressive disorder, not elsewhere classified 311 [facility] [id number] [place] [address] Jan, [facility] [address]65100[place] [address] December, Generalized anxiety disorder 300.02 and Depressive disorder, not elsewhere classified 311 [facility] [address] [id number], [place] [address] December, Major depressive disorder, recurrent, unspecified 296.30 and Panic disorder with agoraphobia 300.21 [facility] [id number] [place] [address] Nov, [facility] [address] [address] Nov, [facility] [id number] [place] [address] Oct, [facility] [id number] [place] [address] Oct, [facility] [id number] [place] [address] Oct, [facility] [address], [place] [address] Oct, [facility] [address] [place] [address] Sep, [facility] [address], [place] [address] Sep, [facility] [address], [place] [address] Sep, [facility] [address], [place] [address] Sep, [facility] [address], [place] [address] Sep, [facility] [address], [place] [address] Sep, [facility] [address], [place] [address] Sep, 2014 [facility] [place] [facility] [address] [id number] [place] [address] Sep, 2014 [facility] [place] [facility] [address] [id number] [place] [address] Sep, 2014 [facility] [place] [facility] [address] [id number] [place] [address] Sep, 2014 [facility] [place] [facility] [address] [id number] [place] [address] Aug, [facility] [place] [facility] [address] [id number] [place] [address] Aug, [facility] [place] [facility] [address] [id number] [place] [address] Jul, [facility] [address] [id number] [place] [address] Jul, [facility] [place] [facility] [address] [id number] [place] [address] Jul, [facility] [place] [facility] [address] [id number] [place] [address] Jul, [facility] [place] [facility] [address] [facility] [id number] [place] [address] Jul, [facility] [place] [facility] [address] [id number] [place] [address] Jul, [facility] [place] [facility] [address] [id number] [place] [address] 05 Jul, 2014 [facility] [place] [facility] [address] [id number] [place] [address] 05 Jul, 2014 [facility] [place] [facility] [address] [id number] [place] [address] Jul, [facility] [place] [facility] [address] [id number] [place] [address] 04 Jul, 2014 [facility] [place] [facility] [address] [id number] [place] [address] Jul, [facility] [place] [facility] [address] [id number] [place] [address] Jul, [facility] [place] [facility] [address] [id number] [place] [address] Jun, [facility] [place] [facility] [address] [id number] [place] [address] Jun, [facility] [place] [facility] [address] [id number] [place] [address] May, [facility] [place] [facility] [address] [id number] [place] [address] May, [facility] [place] [facility] [address] [id number] [place] [address] May, [facility] [place] [facility] [address] [id number] [place] [address] May, [facility] [place] [facility] [address] [id number] [place] [address] May, [facility] [place] [facility] [address] [id number] [place] [address] May, [facility] [place] [facility] [address] [id number] [place] [address] May, [facility] [place] [facility] [address] [id number] [place] [address] May, [facility] [place] [facility] [address] [id number] [place] [address] May, [facility] [place] [facility] [address] [id number] [place] [address] May, [facility] [place] [facility] [address] [id number] [place] [address] May, [facility] [place] [facility] [address] [id number] [place] [address] May, [facility] [place] [facility] [address] [id number] [place] [address] 30 Apr, 2014 [facility] [place] [facility] [address] [id number] [place] [address] Apr, [facility] [place] [facility] [address] [id number] [place] [address] Apr, [facility] [place] [facility] [address] [id number] [place] [address] Apr, [facility] [place] [facility] [address] [id number] [place] [address] Apr, [facility] [place] [facility] [address] [id number] [place] [address] Apr, [facility] [place] [facility] [address] [id number] [place] [address] Feb, [facility] [place] [facility] [address] [id number] [place] [address] Feb, [facility] [place] [facility] [address] [id number] [place] [address] Feb, [facility] [place] [facility] [address] [id number] [place] [address] Feb, [facility] [place] [facility] [address] [id number] [place] [address] Feb, [facility] [place] [facility] [address] [id number] [place] [address] Feb, [facility] [place] [facility] [address] [id number] [place] [address] Jan, [facility] [place] [facility] [address] [id number] [place] [address] Jan, [facility] [place] [facility] [address] [id number] [place] [address] Jan, [facility] [place] [facility] [address] [id number] [place] [address] Jan, [facility] [address] [id number] [place] [address] Jan, [facility] [place] [facility] [address] [id number] [place] [address] Jan, [facility] [place] [facility] [address] [id number] [place] [address] Jan, [facility] [place] [facility] [address] [id number] [place] [address] Jan, [facility] [place] [facility] [address] [id number] [place] [address] December, [facility] [place] [facility] [address] [id number] [place] [address] December, [facility] [place] [facility] [address] [id number] [place] [address] December, [facility] [place] [facility] [address] [id number] [place] [address] December, [facility] [place] [facility] [address] [id number] [place] [address] Nov, [facility] [place] [facility] [address] [id number] [place] [address] Nov, [facility] [place] [facility] [address] [id number] [place] [address] Nov, [facility] [place] [facility] [address] [id number] [place] [address] Nov, [facility] [place] [facility] [address] [id number] [place] [address] Nov, [facility] [place] [facility] [address] [id number] [place] [address] Nov, [facility] [place] [facility] [address] [id number] [place] [address] Nov, [facility] [address] [id number] [place] [address] Nov, [facility] [place] [facility] [address] [id number] [place] [address] Oct, [facility] [place] [facility] [address] [id number] [place] [address] Oct, [facility] [place] [facility] [address] [id number] [place] [address] Sep, [facility] [address] [id number] [place] [address] Sep, [facility] [place] [facility] [address] [id number] [place] [id number] Sep, [facility] [place] [facility] [address] [id number] [place] [address] Sep, [facility] [place] [facility] [address] [id number] [address] Sep, [facility] [place] [facility] [address] [id number] [place] [address] Sep, [facility] [place] [facility] [address] [id number] [place] [address] Aug, [facility] [place] [facility] [address] [id number] [address] Aug, [facility] [place] [facility] [address] [id number], [place] [address] Aug, [facility] [place] [facility] [address] [id number] [place] [address] Aug, [facility] [place] [facility] [address] [id number] [place] [address] Jul, [facility] [place] [facility] [address] [id number] [place] [address] Jul, [facility] [place] [facility] [address] [id number] [place] [address] Jul, [facility] [place] [facility] [address] [id number] [place] [address] Jul, [facility] [place] [facility] [address] [id number] [place] [address] Jun, [facility] [place] [facility] [address] [id number] [place] [address] Jun, [facility] [place] [facility] [address] [id number] [place] [address] May, [facility] [place] [facility] [address] [id number] [place] [address] May, [facility] [place] [facility] [address] [id number] [place] [address] May, [facility] [place] [facility] [address] [id number] [place] [address] May, [facility] [place] [facility] [address] [id number] [place] [address] May, [facility] [place] [facility] [address] [id number] [place] [address] 17 Apr, 2013 [facility] [place] [facility] [address] [id number] [place] [address] Apr, [facility] [place] [facility] [address] [id number] [place] [address] Mar, [facility] [place] [facility] [address] [id number] [place] [address] Mar, [facility] [place] [facility] [address] [id number] [place] [address] 15 Mar, 2013 [facility] [place] [facility] [address] [id number] [place] [address] Mar, [facility] [place] [facility] [address] [id number] [place] [address] Feb, [facility] [place] [facility] [address] [id number] [place] [address] 17 Feb, 2013 [facility] [address] [id number] [place] [address] Feb, [facility] [place] [facility] [address] [id number] [place] [address] Feb, [facility] [address] [id number] [place] [address] Feb, [facility] [address] [id number] [place] [address] Jan, [facility] [place] [facility] [address] [id number] [place] [address] Jan, [facility] [address] [id number] [place] [address] Jan, [facility] [address] [id number] [place] [address] Jan, [facility] [address] [id number] [place] [address] Jan, [facility] [place] [facility] [address] [id number] [place] [address] December, [facility] [place] [facility] [address] [id number] [place] [address] December, [facility] [place] [facility] [address] [id number] [place] [address] Nov, [facility] [place] [facility] [address] [id number] [place] [address] Nov, [facility] [place] [facility] [address] [id number] [place] [address] Oct, [facility] [place] [facility] [address] [id number] [place] [address] Oct, [facility] [place] [facility] [address] [id number] [place] [address] Oct, [facility] [address] [id number] [place] [address] 14 Sep, 2012 [facility] [place] [facility] [address] [id number] [place] [address] 24 Aug, 2012 [facility] [place] [facility] [address] [id number] [place] [address] 16 Aug, 2012 [facility] [place] [facility] [address] [id number] [place] [address] 15 Aug, 2012 [facility] [address] [id number] [place] [address] Aug, [facility] [address] [id number] [place] [address] Jul, [facility] [address] [id number] [place] [address] Jul, [facility] [place] [facility] [address] [id number] [place] [address] Jul, [facility] [address] [id number] [place] [address] Jul, [facility] [place] [facility] [address] [id number] [place] [address] Jul, [facility] [address] [id number] [place] [address] Jul, [facility] [place] [facility] [address] [id number] [place] [address] Jul, [facility] [place] [facility] [address] [id number] [place] [address] Jul, [facility] [place] [facility] [address] [id number] [place] [address] Jun, [facility] [place] [facility] [address] [id number] [place] [address] Jun, [facility] [place] [facility] [address] [id number] [place] [address] Jun, [facility] [place] [facility] [address] [id number] [place] [address] Jun, [facility] [place] [facility] [address] [id number] [place] [address] Jun, [facility] [place] [facility] [address] [id number] [place] [address] Jun, [facility] [place] [facility] [address] [id number] [place] [address] May, [facility] [place] [facility] [address] [id number] [place] [address], [place] [address] May, [facility] [place] [facility] [address] [id number] [place] [address] May, [facility] [place] [facility] [address] [id number] [place] [address] May, [facility] [place] [facility] [address] [id number] [place] [address] Apr, [facility] [place] [facility] [address] [id number] [place] [address] Apr, [facility] [place] [facility] [address] [facility] [id number] [place] [address] Mar, [facility] [place] [facility] [address] [id number] [place] [address] Jan, [facility] [place] [facility] [address] [id number] [place] [address] 20 Jan, 2012 [facility] [place] [facility] [address] [id number] [place] [address] 16 Jan, 2012 [facility] [place] [facility] [address] [id number] [place] [address] 15 Jan, 2012 [facility] [place] [facility] [address] [id number] [place] [address] Jan, [facility] [address] [id number] [place] [address] 14 Jan, 2012 [facility] [place] [facility] [address] [id number] [place] [address] Jan, [facility] [place] [facility] [address] [id number] [place] [address] December, [facility] [place] [facility] [address] [id number] [place] [address] December, [facility] [address] [id number] [place] [address] December, [facility] [place] [facility] [address] [id number] [place] [address] December, [facility] [place] [facility] [address] [id number] [place] [address] Nov, [facility] [place] [facility] [address] [id number] [place] [address] Nov, [facility] [place] [facility] [address] [id number] [place] [address] Oct, [facility] [place] [facility] [address] [id number] [place] [address] Oct, [facility] [place] [facility] [address] [id number] [place] [address] Oct, [facility] [place] [facility] [address] [id number] [place] [address] Sep, [facility] [place] [facility] [address] [id number] [place] [address] Sep, [facility] [place] [facility] [address] [id number] [place] [address] Sep, [facility] [place] [facility] [address] [id number] [place] [address] Aug, [facility] [place] [facility] [address] [id number] [place] [address] Aug, [facility] [address] [id number] [place] [address] Aug, [facility] [place] [facility] [address] [id number] [place] [address] Aug, [facility] [address] [id number] [place] [address] Aug, [facility] [place] [facility] [address] [id number] [place] [address] Aug, [facility] [address] [id number] [place] [address] Aug, [facility] [place] [facility] [address] [id number] [place] [address] 08 Jul, 2011 [facility] [address] [id number] [place] [address] 02 Jul, 2011 [facility] [place] [facility] [address] [id number] [place] [address] 30 Jun, 2011 [facility] [place] [facility] [address] [id number] [place] [address] 28 Jun, 2011 [facility] [place] [facility] [address] [id number] [place] [address] 17 Jun, 2011 [facility] [place] [facility] [address] [id number] [place] [address] 15 Jun, 2011 [facility] [place] [facility] [address] [id number] [place] [address] 14 Jun, 2011 [facility] [place] [facility] [address] [id number] [place] [address] 14 Jun, 2011 [facility] [place] [facility] [address] [id number] [place] [address] 07 Jun, 2011 [facility] [place] [facility] [address] [id number] [place] [address] 07 Jun, 2011 [facility] [place] [facility] [address] [id number] [place] [address] Jun, [facility] [place] [facility] [address] [id number] [place] [address] Jun, [facility] [place] [facility] [address] [id number] [place] [address] May, [facility] [place] [facility] [address] [id number] [place] [address] May, [facility] [place] [facility] [address] [id number] [place] [address] May, [facility] [place] [facility] [address] [id number] [place] [address] May, [facility] [place] [facility] [address] [id number] [place] [address] May, [facility] [place] [facility] [address] [id number] [place] [address] May, [facility] [place] [facility] [address] [id number] [place] [address] Feb, [facility] [place] [facility] [address] [id number] [place] [address] December, [facility] [place] [facility] [address] [id number] [place] [address] Jul, [facility] [place] [facility] [address] [id number] [place] [address] Jul, [facility] [place] [facility] [address] [id number] [place] [address] Jul, [facility] [place] [facility] [address] [id number] [place] [address] Jul, [facility] [place] [facility] [address] [id number] [place] [address] 15 Jun, 2010 [facility] [place] [facility] [address] [id number], [place] [address] 31 Jul, 2009 [facility] [address] [id number] [address] Jul, [facility] [id number] [address] Jul, [facility] [id number] [address] Jul, [facility] [id number] [address] Jul, [facility] [id number] [address] Jul, [facility] [id number] [address] Jan, [facility] [id number] [address] 16 Sep, 2008 [facility] [id number] [address] Sep, IMMUNIZATIONS No Known Immunizations SOCIAL HISTORY Never Assessed REASON FOR VISIT EMR-[facility] PLAN OF CARE VITAL SIGNS MEDICATIONS Unknown [...]
--- OUTSIDE RECORDS SUMMARY | 2019-01-22 20:39 | XMS REPORT ---
Author Author KVNG MERCHANT [facility] Address [address] [place] [address] Care Team Providers Care Credit Assessment Analyst Name Role Phone KVNG MERCHANT Unavailable PROBLEMS Type Condition ICD9-CM Code XKX78-MS Code Onset Dates Condition Status SNOMED Code Problem Family history of diabetes mellitus Z83.3 Active 098280464 Problem Hot flashes N95.1 Active 164458865 Problem Excessive and frequent menstruation with irregular cycle N92.1 Active 032495630 Problem Diverticulitis K57.92 Active 427495295 Problem Gastroesophageal reflux disease with esophagitis K21.0 Active 468931184 Problem Mitral valve prolapse I34.1 Active 721502446 Problem Perimenopausal N95.1 Active 185748677202117 Problem Tachycardia R00.0 Active 6315671 Problem Abnormal uterine bleeding (AUB) N93.9 Active 75581000783965 Problem History of diverticulitis Z87.19 Active 370842448783976 Problem History of colon polyps Z86.010 Active 779064099 Problem Generalized anxiety disorder F41.1 Active 919247323 Problem Dense breast tissue R92.2 Active 026183735 Problem Hypertension I10 Active 90569321 Problem History of ovarian cyst Z87.42 Active 40464940 ALLERGIES No Information ENCOUNTERS Encounter Location Date Diagnosis [facility] [address] [facility] [id number] [address] Sep, [facility] [address] [facility] [id number], [place] [address] Aug, [facility] [address] [id number] [address] Aug, [facility] [address] [facility] [id number] [address] Jul, Generalized anxiety disorder F41.1 and Bereavement Z63.4 [facility] [address] [place] [address] Jul, Other acute gastritis without hemorrhage K29.00 ; Generalized anxiety disorder F41.1 ; Tachycardia R00.0 and Essential hypertension I10 [facility] [address] [place] [address] Jul, Generalized anxiety disorder F41.1 and Bereavement Z63.4 [facility] [id number] [place] [address] Jun, Generalized anxiety disorder F41.1 and Bereavement Z63.4 [facility] [id number] [place] [address] Jun, Generalized anxiety disorder F41.1 and Bereavement Z63.4 [facility] [address] [place], [place] [id number] [place] [address] Jun, Dental examination Z01.20 [facility] [id number] [place] [address] May, Generalized anxiety disorder F41.1 and Bereavement Z63.4 [facility] [id number] [place] [address] May, Encounter for immunization Z23 [facility] [id number] [place] [address] May, Generalized anxiety disorder F41.1 and Bereavement Z63.4 [facility] [id number] [place] [address] May, [facility] [id number] [place] [address] Apr, Generalized anxiety disorder F41.1 and Bereavement Z63.4 [facility] [address] [place] [address] Apr, [facility] [id number] [place] [address] Apr, Diverticulitis K57.92 [facility] [address] [place] [address] Apr, Generalized anxiety disorder F41.1 and Bereavement Z63.4 [facility] [address] [place] [address] Mar, [facility] [id number] [place] [address] Mar, Diverticulitis K57.92 [facility] [id number] [place] [address] Mar, Generalized anxiety disorder F41.1 and Bereavement Z63.4 [facility] [id number] [place] [address] Mar, Hypertension I10 [facility] [id number] [place] [address] Mar, Generalized anxiety disorder F41.1 and Bereavement Z63.4 [facility] [id number] [place] [address] Feb, Generalized anxiety disorder F41.1 and Bereavement Z63.4 [facility] [address] [place] [address] Feb, [facility] [id number] [place] [address] Feb, Generalized anxiety disorder F41.1 and Bereavement Z63.4 [facility] [id number] [place] [address] Feb, Generalized anxiety disorder F41.1 and Bereavement Z63.4 [facility] [address] [place] [address] Jan, Hypertension I10 and Acute non-recurrent maxillary sinusitis J01.00 [facility] [address] [id number] [address] December, [facility] [address]00565100[place] [address] December, Hypertension I10 [facility] [address] [id number] [address] December, Generalized anxiety disorder F41.1 [facility] [address] [id number][place] [address] Oct, Encounter for dental examination Z01.20 [facility] [address] [id number], [place] [address] Oct, Encounter for dental examination Z01.20 [facility] [address] [id number], [place] [address] Oct, Dental examination Z01.20 [facility] [address]65100[place] [address] Oct, Generalized anxiety disorder F41.1 [facility] [address] [id number], [place] [address] Aug, Dental examination Z01.20 [facility] [address]005[address]100[place] [address] Aug, Generalized anxiety disorder F41.1 [facility] [address]00565100[place] [address] Aug, [facility] [address] [id number][place] [address] Aug, Encounter for dental examination Z01.20 [facility] [address]00565100[place] [address] Aug, Subacute maxillary sinusitis J01.00 [facility] [address] [id number], [place] [address] Jul, Dental examination Z01.20 [facility] [id number] [place] [address] Jul, Generalized anxiety disorder F41.1 [facility] [id number] [place] [address] Jul, Diverticulitis K57.92 [facility] [id number] [place] [address] Jun, Encounter for immunization Z23 [facility] [id number] [place] [address] Jun, Dental examination Z01.20 [place] [id number] [place] [address] 14 Jun, 2017 Generalized anxiety disorder F41.1 [facility] [id number] [place] [address] 07 Jun, 2017 Dental examination Z01.20 [facility] [id number] [place] [address] May, [facility] [id number] [place] [id number] May, Dental examination Z01.20 [facility] [id number] [place] [id number] May, Dental examination Z01.20 [facility] [id number] [place] [address] May, Dental examination Z01.20 [facility] [id number] [place] [address] May, [facility] [id number] [place] [address] May, Generalized anxiety disorder F41.1 [facility] [address] [place] [address] 05 May, 2017 Localized edema R60.0 ; Yeast vaginitis B37.3 and Gastroesophageal reflux disease with esophagitis K21.0 [facility] [address] [id number] [id number] 26 Apr, 2017 Dental examination Z01.20 [facility] [address] [id number], [place] [address] 21 Apr, 2017 Dental examination Z01.20 [facility] [address] [id number][place] [address] 05 Apr, 2017 Dental examination Z01.20 [facility] [id number] [place] [address] Mar, Dyspepsia R10.13 [facility] [id number] [place] [address] Mar, Generalized anxiety disorder F41.1 [facility] [address] [id number], [place] [address] Mar, Encounter for dental examination Z01.20 [facility] [id number] [place] [id number] Mar, [facility] [id number] [place] [address] [id number] Mar, Dental examination Z01.20 [facility] [id number] [place] [address] Feb, Hypertension I10 and Tachycardia R00.0 [facility] [address] [id number], [place] [address] Feb, [facility] [address] [id number], [place] [address] Feb, Generalized anxiety disorder F41.1 [facility] [id number] [place] [id number] Feb, Dental examination Z01.20 [facility] [address] [facility] [id number] [address] Jan, Generalized anxiety disorder F41.1 [facility] [address] [place] [address] December, Generalized anxiety disorder F41.1 [facility] [id number] [place] [address] [id number] December, Encounter for dental examination Z01.20 [facility] [id number] [place] [address] Nov, [facility] [id number] [place] [address] Nov, [facility] [id number] [place] [address] Nov, Generalized anxiety disorder F41.1 [facility] [id number] [place] [address] Oct, [facility] [id number] [place] [id number] Oct, Dental examination Z01.20 [facility] [id number] [place] [address] Oct, Vaginal dryness N89.8 [facility] [id number] [place] [address] Oct, Pseudoseizures F44.5 [facility] [id number] [place] [address] Oct, Generalized anxiety disorder F41.1 [facility] [id number] [place] [address] Sep, Abnormal uterine bleeding (AUB) N93.9 ; Vaginal dryness N89.8 and Screening breast examination Z12.39 [facility] [id number] [place] [address] Sep, Dental examination Z01.20 [facility] [id number] [place] [address] Sep, Generalized anxiety disorder F41.1 [facility] [id number] [place] [address] 06 Sep, 2016 Unspecified ovarian cyst, right side N83.201 ; Unspecified ovarian cyst, left side N83.202 ; Yeast infection of the vagina B37.3 ; Mitral valve prolapse I34.1 and Hypertension I10 [facility] [id number] [place] [address] Aug, Generalized anxiety disorder F41.1 [facility] [id number] [place] [address] Jul, [facility] [address] [address] Jul, Generalized anxiety disorder F41.1 [facility] [id number] [place] [address] Jun, Generalized anxiety disorder F41.1 [facility] [address] [address] May, Encounter for immunization Z23 [facility] [id number] [place] [address] 17 May, 2016 Generalized anxiety disorder F41.1 and Depressive disorder, not elsewhere classified F32.9 [facility] [id number] [place] [address] 28 Apr, 2016 Hypertension I10 [facility] [id number] [place] [address] 22 Apr, 2016 Cervicalgia M54.2 [facility] [id number] [place] [address] 12 Apr, 2016 Cervicalgia M54.2 [facility] [id number] [place] [address] 09 Mar, 2016 Generalized anxiety disorder F41.1 and Depressive disorder, not elsewhere classified F32.9 [facility] [id number] [place] [address] [phone] Feb, Visit for dental examination Z01.20 [facility] [address] [place] [address] 11 Feb, 2016 Pseudoseizures F44.5 ; Migraine without status migrainosus, not intractable, unspecified migraine type G43.909 and Essential hypertension I10 [facility] [address] [id number] 06 Feb, 2016 Dental examination Z01.20 [facility] [id number] [place] [address] 05 Feb, 2016 Generalized anxiety disorder F41.1 and Depressive disorder, not elsewhere classified F32.9 [facility] [address] [address] Jan, Tachycardia R00.0 [place] [id number] [place] [address] December, Eustachian tube dysfunction, bilateral H69.83 [facility] [id number] [place] [address] December, Generalized anxiety disorder F41.1 and Depressive disorder, not elsewhere classified F32.9 [facility] [id number] [place] [address] Nov, [place] [id number] [place] [address] Nov, [facility] [id number] [place] [address] Nov, Hypertension I10 ; Onychomycosis B35.1 ; [...] and Complex cyst of left ovary N83.29 [place] [id number] [place] [address] 14 Nov, 2015 Sinusitis J32.9 [place] [address] [address] Oct, Complex cyst of left ovary N83.29 [place] [address] [address] Oct, Onychomycosis B35.1 [facility] [address] [id number] Oct, Dental examination Z01.20 [place] [address] [address] 09 Oct, 2015 Well woman exam Z01.419 [...] R92.2 and History of colon polyps Z86.010 [place] [address] [address] Oct, Generalized anxiety disorder F41.1 and Depressive disorder, not elsewhere classified F32.9 [place] [id number] [place] [address] Sep, Hypertension I10 and Onychomycosis B35.1 [place] [address] [address] 16 Sep, 2015 Skin tags, multiple acquired L91.[address] [address] Aug, [place] [address] [place] [address] Aug, [facility] [id number] [place] [address] Aug, [facility] [id number] [place] [address] Aug, Generalized anxiety disorder F41.1 and Depressive disorder, not elsewhere classified F32.9 [facility] [id number] [place] [address] Jul, Skin lesion L98.9 [facility] [id number] [place] [address] Jun, Generalized anxiety disorder F41.1 and Depressive disorder, not elsewhere classified F32.9 [facility] [id number] [place] [address] Jun, [facility] [address] [address] Jun, Generalized anxiety disorder F41.1 [facility] [id number] [place] [address] May, Encounter for immunization Z23 and Right shoulder pain M25.511 [facility] [id number] [place] [address] Apr, [facility] [id number] [place] [address] 14 Apr, 2015 Generalized anxiety disorder 300.02 and Depressive disorder, not elsewhere classified 311 [facility] [address] [place] [address] [id number] Mar, Dental examination V72.2 [facility] [id number] [place] [address] Mar, Generalized anxiety disorder 300.02 and Depressive disorder, not elsewhere classified 311 [facility] [id number] [place] [address] Mar, Depression, major, recurrent, 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.35 and 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 [facility] [address] [place] [address] Feb, Generalized anxiety disorder 300.02 and Depressive disorder, not elsewhere classified 311 [facility] [id number] [id number] Feb, Dental examination V72.2 [facility] [id number] [place] [address] Jan, Generalized anxiety disorder 300.02 and Depressive disorder, not elsewhere classified 311 [facility] [id number] [place] [address] Jan, [facility] [id number] [place] [address] December, Generalized anxiety disorder 300.02 and Depressive disorder, not elsewhere classified 311 [facility] [id number] [place] [address] December, Major depressive disorder, recurrent, unspecified 296.30 and Panic disorder with agoraphobia 300.21 [facility] [id number] [place] [address] Nov, [facility] [address] [address] Nov, [facility] [address] [place] [address] Oct, [facility] [id number] [place] [address] Oct, [facility] [id number] [place] [address] Oct, [facility] [address] [address] Oct, [facility] [id number] [place] [address] Sep, 2014 [facility] [place] [facility] [address] [facility] [id number] [place] [address] Sep, 2014 [facility] [place] [facility] [address] [facility] [id number] [place] [address] Sep, 2014 [facility] [place] [facility] [address] [facility] [id number] [place] [address] Sep, 2014 [facility] [place] [facility] [address] [facility] [id number] [place] [address] Sep, 2014 [facility] [place] [facility] [address] [facility] [id number] [place] [address] Sep, 2014 [facility] [place] [facility] [address] [facility] [id number] [place] [address] Sep, 2014 [facility] [place] [facility] [id number] [place] [address] Sep, 2014 [facility] [place] [facility] [address] [facility] [id number] [place] [address] Sep, 2014 [facility] [place] [facility] [address] [facility] [id number] [place] [address] Sep, 2014 [facility] [place] [facility] [address] [facility] [id number] [place] [address] Aug, [facility] [place] [facility] [address] [facility] [id number] [place] [address] Aug, [facility] [place] [facility] [address] [facility] [id number] [place] [address] Jul, [facility] [place] [facility] [address] [facility] [id number] [place] [address] Jul, [facility] [place] [facility] [address] [facility] [id number] [place] [address] Jul, [facility] [place] [facility] [id number] [place] [address] Jul, [facility] [place] [facility] [address] [id number] [place] [address] Jul, [facility] [place] [facility] [address] [id number] [place] [address] Jul, [facility] [place] [facility] [address] [id number] [place] [address] Jul, [facility] [place] [facility] [address] [id number] [place] [address] Jul, [facility] [place] [facility] [address] [id number] [place] [address] Jul, [facility] [place] [facility] [address] [id number] [place] [address] Jul, [facility] [place] [facility] [address] [id number] [place] [address] Jul, [facility] [place] [facility] [address] [id number] [place] [address] Jul, [facility] [place] [facility] [address] [id number] [place] [address] Jun, [facility] [place] [facility] [address] [id number] [place] [address] Jun, [facility] [place] [facility] [address] [id number] [place] [address] May, [facility] [place] [facility] [address] [id number] [place] [address] May, [facility] [place] [facility] [address] [id number] [place] [address] May, [facility] [place] [facility] [address] [id number] [place] [address] May, [facility] [place] [facility] [address] [id number] [place] [address] May, [facility] [place] [facility] [address] [id number] [place] [address] May, [facility] [place] [facility] [address] [id number] [place] [address] May, [facility] [place] [facility] [address] [id number] [place] [address] May, [facility] [place] [facility] [address] [id number] [place] [address] May, [facility] [place] [facility] [address] [id number] [place] [address] May, [facility] [place] [facility] [address] [id number] [place] [address] May, [facility] [place] [facility] [address] [id number] [place] [address] May, [facility] [place] [facility] [address] [id number] [place] [address] 30 Apr, 2014 [facility] [place] [facility] [address] [address] [id number] [place] [address] 30 Apr, 2013 [facility] [place] [facility] [address] [id number] [place] [address] 29 Apr, 2014 [facility] [place] [facility] [address] [id number] [place] [address] 29 Apr, 2013 [facility] [place] [facility] [address] [id number] [place] [address] Apr, [facility] [place] [facility] [address] [id number] [address] Apr, [facility] [place] [facility] [address] [id number] [place] [address] Feb, [facility] [place] [facility] [address] [id number] [place] [address] Feb, [facility] [place] [facility] [address] [id number] [place] [address] Feb, [facility] [place] [facility] [address] [id number] [place] [address] Feb, [facility] [place] [facility] [address] [id number] [place] [address] Feb, [facility] [place] [facility] [address] [id number] [place] [address] Feb, [facility] [place] [facility] [address] [id number] [place] [address] Jan, [facility] [place] [facility] [address] [id number] [place] [address] Jan, [facility] [place] [facility] [address] [id number] [place] [address] Jan, [facility] [place] [facility] [address] [id number] [place] [address] Jan, [facility] [place] [facility] [address] [id number] [place] [address] Jan, [facility] [place] [facility] [address] [id number] [place] [address] Jan, [facility] [place] [facility] [address] [id number] [place] [address] Jan, [facility] [place] [facility] [address] [id number] [place] [address] Jan, [facility] [place] [facility] [address] [id number] [place] [address] December, [facility] [place] [facility] [address] [id number] [place] [address] December, [facility] [place] [facility] [address] [id number] [place] [address] December, [facility] [place] [facility] [address] [id number] [place] [address] December, [facility] [place] [facility] [address] [id number] [place] [address] Nov, [facility] [place] [facility] [address] [id number] [place] [address] Nov, [facility] [place] [facility] [address] [id number] [place] [address] Nov, [facility] [place] [facility] [address] [id number] [place] [address] Nov, [facility] [place] [facility] [address] [id number] [place] [address] Nov, [facility] [place] [facility] [address] [id number] [place] [address] Nov, [facility] [place] [facility] [address] [id number] [place] [address] Nov, [facility] [place] [facility] [address] [id number] [place] [address] Nov, [facility] [place] [facility] [address] [id number] [place] [address] Oct, [facility] [place] [facility] [address] [id number] [place] [address] Oct, [facility] [place] [facility] [address] [id number] [place] [address] Sep, [facility] [place] [facility] [address] [id number] [place] [address] Sep, [facility] [place] [facility] [address] [id number] [id number] Sep, [facility] [place] [facility] [address] [id number] [place] [address] Sep, [facility] [place] [facility] [address] [id number] [place] [address] Sep, [facility] [place] [facility] [address] [id number] [place] [address] Sep, [facility] [place] [facility] [address] [id number] [place] [address] 15 Aug, 2013 [facility] [place] [facility] [address] [id number] [place] [address] 15 Aug, 2013 [facility] [place] [facility] [address] [id number] [place] [address] Aug, [facility] [place] [facility] [address] [id number] [place] [address] Aug, [facility] [place] [facility] [address] [id number] [place] [address] Jul, [facility] [place] [facility] [address] [id number] [place] [address] Jul, [facility] [place] [facility] [address] [id number] [place] [address] Jul, [facility] [place] [facility] [address] [id number] [place] [address] Jul, [facility] [place] [facility] [address] [id number] [place] [address] Jun, [facility] [place] [facility] [address] [id number] [place] [address] Jun, [facility] [place] [facility] [address] [facility] [id number] [place] [address] May, [facility] [place] [facility] [address] [id number] [place] [address] 24 May, 2013 [facility] [place] [facility] [address] [id number], [place] [address] May, [facility] [place] [facility] [address] [id number] [place] [address] 11 May, 2013 [facility] [place] [facility] [address] [id number] [place] [address] 10 May, 2013 [facility] [place] [facility] [address] [id number] [place] [address] 17 Apr, 2013 [facility] [place] [facility] [address] [id number] [place] [address] Apr, [facility] [place] [facility] [address] [id number] [place] [address] Mar, [facility] [place] [facility] [address] [id number] [place] [address] Mar, [facility] [place] [facility] [address] [id number] [place] [address] Mar, [facility] [place] [facility] [address] [id number] [place] [address] Mar, [facility] [place] [facility] [address] [id number] [place] [address] Feb, [facility] [place] [facility] [address] [id number] [place] [address] Feb, [facility] [place] [facility] [address] [id number] [place] [address] Feb, [facility] [place] [facility] [address] [id number] [place] [address] Feb, [facility] [place] [facility] [address] [id number] [place] [address] Feb, [facility] [place] [facility] [address] [id number] [place] [address] Jan, [facility] [place] [facility] [address] [id number] [place] [address] Jan, [facility] [place] [facility] [address] [id number] [place] [address] Jan, [facility] [place] [facility] [address] [id number] [place] [address] Jan, [facility] [place] [facility] [address] [id number] [place] [address] Jan, [facility] [place] [facility] [address] [id number] [place] [address] December, [facility] [address] [id number] [place] [address] December, [facility] [address] [id number] [place] [address] Nov, [facility] [address] [id number] [place] [address] Nov, [facility] [address] [id number] [place] [address] Oct, [facility] [address] [id number] [place] [address] Oct, [facility] [address] [id number] [place] [address] Oct, [facility] [address] [id number] [place] [address] 14 Sep, 2012 [facility] [address] [id number] [place] [address] Aug, [facility] [address] [id number] [place] [address] Aug, [facility] [address] [id number] [place] [address] Aug, [facility] [address] [id number] [place] [address] Aug, [facility] [address] [id number], [place] [address] Jul, [facility] [place] [facility] [address] [id number] [place] [address] Jul, [facility] [place] [facility] [address] [id number] [place] [address] Jul, [facility] [place] [facility] [address] [id number] [place] [address] Jul, [facility] [address] [id number] [place] [address] Jul, [facility] [address] [id number] [place] [address] Jul, [facility] [place] [facility] [address] [id number] [place] [address] Jul, [facility] [address] [id number] [place] [address] Jul, [facility] [place] [facility] [address] [id number] [place] [address] Jun, [facility] [address] [id number] [place] [address], [place] [address] Jun, [facility] [place] [facility] [address] [facility] [id number] [place] [address] Jun, [facility] [place] [facility] [address] [facility] [id number] [place] [address] Jun, [facility] [address] [facility] [id number] [place] [address] Jun, [facility] [place] [facility] [address] [facility] [id number] [place] [address] Jun, [facility] [address] [facility] [id number] [place] [address] May, [facility] [place] [facility] [address] [facility] [id number] [place] [address] May, [facility] [place] [facility] [address] [facility] [id number], [place] [address] May, [facility] [place] [facility] [address] [facility] [id number] [place] [address] May, [facility] [place] [facility] [address] [facility] [id number] [place] [address] Apr, [facility] [place] [facility] [address] [facility] [id number] [place] [address] Apr, [facility] [place] [facility] [address] [id number] [place] [address] 08 Mar, 2012 [facility] [place] [facility] [address] [id number] [place] [address] 28 Jan, 2012 [facility] [place] [facility] [address] [id number] [place] [address] 20 Jan, 2012 [facility] [place] [facility] [address] [id number] [place] [address] 16 Jan, 2012 [facility] [place] [facility] [address] [id number] [place] [address] 15 Jan, 2012 [facility] [place] [facility] [address] [id number] [place] [address] 14 Jan, 2012 [facility] [place] [facility] [address] [id number] [place] [address] 14 Jan, 2012 [facility] [place] [facility] [address] [id number] [place] [address] 07 Jan, 2012 [facility] [place] [facility] [address] [id number] [place] [address] December, [facility] [place] [facility] [address] [id number] [place] [address] December, [facility] [place] [facility] [address] [id number] [place] [address] December, [facility] [place] [facility] [address] [id number], [place] [address] December, [facility] [place] [facility] [address] [id number] [place] [address] Nov, [facility] [place] [facility] [address] [id number] [place] [address] Nov, [facility] [place] [facility] [address] [id number] [place] [address] Oct, [facility] [place] [facility] [address] [id number], [place] [address] Oct, [facility] [address] [id number] [place] [address] Oct, [facility] [address] [id number] [place] [address] Sep, [facility] [address] [id number] [place] [address] Sep, [facility] [place] [facility] [address] [id number] [place] [address] Sep, [facility] [address] [id number] [place] [address] Aug, [facility] [address] [id number] [place] [address] Aug, [facility] [address] [id number] [place] [address] Aug, [facility] [address] [id number] [place] [address] Aug, [facility] [address] [id number] [place] [address] Aug, [facility] [address] [id number] [place] [address] Aug, [facility] [address] [id number] [place] [address] Aug, [facility] [place] [facility] [address] [id number] [place] [address] Jul, [facility] [place] [facility] [address] [id number] [place] [address] Jul, [facility] [place] [facility] [address] [id number] [place] [address] Jun, [facility] [place] [facility] [address] [id number] [place] [address] Jun, [facility] [place] [facility] [address] [id number] [place] [address] 17 Jun, 2011 [facility] [place] [facility] [address] [id number] [place] [address] 15 Jun, 2011 [facility] [place] [facility] [address] [id number] [place] [address] 14 Jun, 2011 [facility] [place] [facility] [address] [id number] [place] [address] 14 Jun, 2011 [facility] [place] [facility] [address] [id number] [place] [address] Jun, [facility] [place] [facility] [address] [id number] [place] [address] Jun, [facility] [place] [facility] [address] [id number] [place] [address] Jun, [facility] [place] [facility] [address] [id number] [place] [address] Jun, [facility] [place] [facility] [address] [id number] [place] [address] May, [facility] [place] [facility] [address] [id number] [place] [address] May, [facility] [place] [facility] [address] [id number] [place] [address] May, [facility] [place] [facility] [address] [id number] [place] [address] 24 May, 2011 [facility] [place] [facility] [address] [id number] [place] [address] 18 May, 2011 [facility] [place] [facility] [address] [id number] [place] [address] May, [facility] [place] [facility] [address] [id number] [place] [address] Feb, [facility] [place] [facility] [address] [id number] [place] [address] December, [facility] [address] [id number] [address] Jul, [facility] [address] [facility] [id number], [place] [address] Jul, [facility] [id number], [place] [address] Jul, [facility] [id number], [place] [address] Jul, [facility] [id number], [place] [address] Jun, [facility] [id number], [place] [address] Jul, [facility] [id number], [place] [address] Jul, [facility] [id number], [place] [address] Jul, [facility] [id number], [place] [address] Jul, [facility] [id number], [place] [address] Jul, [facility] [id number], [place] [address] Jul, [facility] [id number], [place] [address] Jan, [facility] [id number], [place] [address] Sep, [facility] [id number], [place] [address] Sep, IMMUNIZATIONS No Known Immunizations SOCIAL HISTORY Never Assessed REASON FOR VISIT followup Anxiety/ Grief PLAN OF CARE Activity Details Follow Up 3 Weeks Reason: Follow-up VITAL SIGNS MEDICATIONS Unknown Medications RESULTS No Results PROCEDURES Procedure Date Ordered Result Body Site Psychotherapy, patient and family, 45 minutes, established patient Aug 10, 2018 INSTRUCTIONS MEDICATIONS ADMINISTERED No Known Medications MEDICAL [...]
--- OUTSIDE RECORDS SUMMARY | 2019-01-22 20:39 | XMS REPORT ---
Author Author LETTY WILKINS Organization [facility] Address [address] [place] [address] Care Team Providers Care Chemical Sprayer Name Role Phone LETTY WILKINS Unavailable PROBLEMS Type Condition ICD9-CM Code OOU98-ZC Code Onset Dates Condition Status SNOMED Code Problem Family history of diabetes mellitus Z83.3 Active 268531642 Problem Hot flashes N95.1 Active 108714330 Problem Excessive and frequent menstruation with irregular cycle N92.1 Active 705816469 Problem Diverticulitis K57.92 Active 355216631 Problem Gastroesophageal reflux disease with esophagitis K21.0 Active 296288610 Problem Mitral valve prolapse I34.1 Active 556019542 Problem Perimenopausal N95.1 Active 593472786040500 Problem Tachycardia R00.0 Active 3821300 Problem Abnormal uterine bleeding (AUB) N93.9 Active 51322260851815 Problem History of diverticulitis Z87.19 Active 173416866163851 Problem History of colon polyps Z86.010 Active 063077530 Problem Generalized anxiety disorder F41.1 Active 426356568 Problem Dense breast tissue R92.2 Active 806960900 Problem Hypertension I10 Active 72921034 Problem History of ovarian cyst Z87.42 Active 82133041 ALLERGIES Substance Reaction Event Type Date Status Sulfamethoxazole-Trimethoprim anaphylaxis Drug Allergy Jul, Active Erythromycin rash Drug Allergy Jul, Active Hydrocodone vomiting Non Drug Allergy Jul, Active ENCOUNTERS Encounter Location Date Diagnosis [facility] [address] [facility] [id number] [address] Sep, [facility] [address] [id number] [address] Aug, [facility] [address] [id number] [address] Aug, [facility] [id number] [place] [address] Jul, Generalized anxiety disorder F41.1 and Bereavement Z63.4 [facility] [id number] [place] [address] Jul, Other acute gastritis without hemorrhage K29.00 ; Generalized anxiety disorder F41.1 ; Tachycardia R00.0 and Essential hypertension I10 [facility] [id number] [place] [address] Jul, Generalized anxiety disorder F41.1 and Bereavement Z63.4 [place] [address] [address] Jun, Generalized anxiety disorder F41.1 and Bereavement Z63.4 [place] [id number] [place] [address] Jun, Generalized anxiety disorder F41.1 and Bereavement Z63.4 [facility] [id number] [place] [address] Jun, Dental examination Z01.20 [place] [id number] [place] [address] May, Generalized anxiety disorder F41.1 and Bereavement Z63.4 [place] [id number] [place] [address] May, Encounter for immunization Z23 [facility] [id number] [place] [address] May, Generalized anxiety disorder F41.1 and Bereavement Z63.4 [facility] [id number] [place] [address] May, [facility] [id number] [place] [address] Apr, Generalized anxiety disorder F41.1 and Bereavement Z63.4 [facility] [address] [id number], [place] [address] 17 Apr, 2018 [facility] [id number] [place] [address] 13 Apr, 2018 Diverticulitis K57.92 [facility] [id number] [place] [address] Apr, Generalized anxiety disorder F41.1 and Bereavement Z63.4 [facility] [id number] [place] [address] Mar, [facility] [id number] [place] [address] Mar, Diverticulitis K57.92 [facility] [id number] [place] [address] Mar, Generalized anxiety disorder F41.1 and Bereavement Z63.4 [facility] [id number] [place] [address] Mar, Hypertension I10 [facility] [id number] [place] [address] Mar, Generalized anxiety disorder F41.1 and Bereavement Z63.4 [facility] [address] [place] [address] Feb, Generalized anxiety disorder F41.1 and Bereavement Z63.4 [facility] [address] [place] [address] Feb, [facility] [address] [place] [address] Feb, Generalized anxiety disorder F41.1 and Bereavement Z63.4 [facility] [id number] [place] [address] Feb, Generalized anxiety disorder F41.1 and Bereavement Z63.4 [facility] [address] [id number], [place] [address] Jan, Hypertension I10 and Acute non-recurrent maxillary sinusitis J01.00 [facility] [id number] [place] [address] December, [facility] [id number] [place] [address] December, Hypertension I10 [facility] [id number] [place] [address] December, Generalized anxiety disorder F41.1 [facility] [id number] [place] [address] Oct, Encounter for dental examination Z01.20 [facility] [id number] [place] [address] Oct, Encounter for dental examination Z01.20 [facility] [id number] [place] [address] Oct, Dental examination Z01.20 [facility] [id number] [place] [address] Oct, Generalized anxiety disorder F41.1 [facility] [id number] [place] [address] Aug, Dental examination Z01.20 [facility] [id number] [place] [address] Aug, Generalized anxiety disorder F41.1 [facility] [id number] [place] [address] Aug, [facility] [id number] [place] [address] Aug, Encounter for dental examination Z01.20 [facility] [id number] [place] [address] Aug, Subacute maxillary sinusitis J01.00 [facility] [address] [id number], [place] [address] 22 Jul, 2017 Dental examination Z01.20 [facility] [id number] [place] [address] 19 Jul, 2017 Generalized anxiety disorder F41.1 [facility] [address] [id number], [place] [address] Jul, Diverticulitis K57.92 [facility] [id number] [place] [address] 28 Jun, 2017 Encounter for immunization Z23 [facility] [id number] [place] [address] Jun, Dental examination Z01.20 [facility] [id number] [place] [address] Jun, Generalized anxiety disorder F41.1 [facility] [address] [id number], [place] [address] 07 Jun, 2017 Dental examination Z01.20 [facility] [address] [id number] [place] [address] May, [facility] [id number] [place] [phone] May, Dental examination Z01.20 [facility] [id number] [place] [phone] May, Dental examination Z01.20 [facility] [address] [id number], [place] [address] May, Dental examination Z01.20 [facility] [id number] [place] [address] May, [facility] [address] [facility] [id number] [place] [address] May, Generalized anxiety disorder F41.1 [facility] [id number] [place] [address] May, Localized edema R60.0 ; Yeast vaginitis B37.3 and Gastroesophageal reflux disease with esophagitis K21.0 [facility] [id number] [place] [id number] Apr, Dental examination Z01.20 [facility] [id number] [place] [address] Apr, Dental examination Z01.20 [facility] [id number] [place] [address] Apr, Dental examination Z01.20 [facility] [id number] [place] [address] Mar, Dyspepsia R10.13 [facility] [id number] [place] [address] Mar, Generalized anxiety disorder F41.1 [facility] [id number] [place] [address] Mar, Encounter for dental examination Z01.20 [facility] [id number] [place] [id number] Mar, [facility] [id number] [place] [id number] Mar, Dental examination Z01.20 [facility] [id number] [place] [address] Feb, Hypertension I10 and Tachycardia R00.0 [facility] [id number] [place] [address] Feb, [facility] [id number] [place] [address] Feb, Generalized anxiety disorder F41.1 [facility] [address] [place] [address] [id number] Feb, Dental examination Z01.20 [facility] [id number] [place] [address] Jan, Generalized anxiety disorder F41.1 [facility] [id number] [place] [address] December, Generalized anxiety disorder F41.1 [facility] [id number] [place] [id number] December, Encounter for dental examination Z01.20 [facility] [id number] [place] [address] Nov, [facility] [id number] [place] [address] Nov, [facility] [id number] [place] [address] Nov, Generalized anxiety disorder F41.1 [facility] [id number] [place] [address] Oct, [facility] [id number] [place] [address] [phone] Oct, Dental examination Z01.20 [facility] [id number] [place] [address] Oct, Vaginal dryness N89.8 [facility] [id number] [place] [address] Oct, Pseudoseizures F44.5 [facility] [id number] [place] [address] Oct, Generalized anxiety disorder F41.1 [facility] [id number] [place] [address] 28 Sep, 2016 Abnormal uterine bleeding (AUB) N93.9 ; Vaginal dryness N89.8 and Screening breast examination Z12.39 [facility] [address] [place] [address] Sep, Dental examination Z01.20 [facility] [id number] [place] [address] Sep, Generalized anxiety disorder F41.1 [place] [id number] [place] [address] 06 Sep, 2016 Unspecified ovarian cyst, right side N83.201 ; Unspecified ovarian cyst, left side N83.202 ; Yeast infection of the vagina B37.3 ; Mitral valve prolapse I34.1 and Hypertension I10 [facility] [id number] [place] [address] Aug, Generalized anxiety disorder F41.1 [place] [address] [address] Jul, [place] [id number] [place] [address] Jul, Generalized anxiety disorder F41.1 [place] [id number] [place] [address] Jun, Generalized anxiety disorder F41.1 [place] [id number] [place] [address] May, Encounter for immunization Z23 [place] [id number] [place] [address] 17 May, 2016 Generalized anxiety disorder F41.1 and Depressive disorder, not elsewhere classified F32.9 [place] [id number] [place] [address] Apr, Hypertension I10 [facility] [address] [place] [address] Apr, Cervicalgia M54.2 [facility] [id number] [place] [address] Apr, Cervicalgia M54.2 [facility] [id number] [place] [address] Mar, Generalized anxiety disorder F41.1 and Depressive disorder, not elsewhere classified F32.9 [facility] [address] [id number] 14 Feb, 2016 Visit for dental examination Z01.20 [facility] [id number] [place] [address] 11 Feb, 2016 Pseudoseizures F44.5 ; Migraine without status migrainosus, not intractable, unspecified migraine type G43.909 and Essential hypertension I10 [facility] [address] [place] [address] [id number] 06 Feb, 2016 Dental examination Z01.20 [facility] [address] [address] 05 Feb, 2016 Generalized anxiety disorder F41.1 and Depressive disorder, not elsewhere classified F32.9 [facility] [id number] [place] [address] Jan, Tachycardia R00.0 [facility] [id number] [place] [address] December, Eustachian tube dysfunction, bilateral H69.83 [facility] [id number] [place] [address] December, Generalized anxiety disorder F41.1 and Depressive disorder, not elsewhere classified F32.9 [facility] [id number] [place] [address] Nov, [facility] [id number] [place] [address] Nov, [facility] [id number] [place] [address] Nov, Hypertension I10 ; Onychomycosis B35.1 ; [...] and Complex cyst of left ovary N83.29 [place] [id number] [place] [address] Nov, Sinusitis J32.9 [place] [address] [address] Oct, Complex cyst of left ovary N83.29 [place] [address] [address] Oct, Onychomycosis B35.1 [facility] [address] [id number] Oct, Dental examination Z01.[address] [address] Oct, 2016 Well woman exam Z01.419 ; Encounter [...] R92.2 and History of colon polyps Z86.010 [place] [address] [address] Oct, Generalized anxiety disorder F41.1 and Depressive disorder, not elsewhere classified F32.[address] [address] Sep, Hypertension I10 and Onychomycosis B35.1 [place] [address] [address] 16 Sep, 2015 Skin tags, multiple acquired L91.8 [place] [address], [place] [address] Aug, [facility] [id number] [place] [address] Aug, [facility] [id number] [place] [address] Aug, [facility] [id number] [place] [address] Aug, Generalized anxiety disorder F41.1 and Depressive disorder, not elsewhere classified F32.9 [facility] [id number] [place] [address] Jul, Skin lesion L98.9 [facility] [id number] [place] [address] Jun, Generalized anxiety disorder F41.1 and Depressive disorder, not elsewhere classified F32.9 [facility] [id number] [place] [address] Jun, [facility] [id number] [place] [address] Jun, Generalized anxiety disorder F41.1 [facility] [id number] [place] [address] May, Encounter for immunization Z23 and Right shoulder pain M25.511 [facility] [address] [place] [address] Apr, [facility] [address] [place] [address] 14 Apr, 2015 Generalized anxiety disorder 300.02 and Depressive disorder, not elsewhere classified [address] 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 [id number] [place] [address] [id number] Feb, Dental examination V72.2 [facility] [id number] [place] [address] Jan, Generalized anxiety disorder 300.02 and Depressive disorder, not elsewhere classified 311 [facility] [id number] [place] [address] Jan, [facility] [id number] [place] [address] December, Generalized anxiety disorder 300.02 and Depressive disorder, not elsewhere classified 311 [facility] [id number] [place] [address] December, Major depressive disorder, recurrent, unspecified 296.30 and Panic disorder with agoraphobia 300.21 [facility] [address], [place] [address] Nov, [facility] [id number] [place] [address] Nov, [facility] [address], [place] [address] Oct, [facility] [id number] [place] [address] Oct, [facility] [address], [place] [address] Oct, [facility] [id number] [place] [address] Oct, [facility] [place] [facility] [address] [id number] [place] [address] Sep, 2014 [facility] [place] [facility] [address] [id number] [place] [address] Sep, 2014 [facility] [place] [facility] [address] [id number] [place] [address] Sep, 2014 [facility] [place] [facility] [address] [id number] [place] [address] Sep, 2014 [facility] [place] [facility] [address] [id number] [place] [address] Sep, 2014 [facility] [place] [facility] [address] [facility] [id number] [place] [address] Sep, 2014 [facility] [place] [facility] [address] [facility] [id number] [place] [address] Sep, 2014 [facility] [place] [facility] [address] [facility] [id number] [place] [address] Sep, [facility] [place] [facility] [address] [facility] [id number] [place] [address] Sep, [facility] [place] [facility] [address] [facility] [id number] [place] [address] Sep, [facility] [place] [facility] [address] [facility] [id number] [place] [address] Aug, [facility] [place] [facility] [address] [id number] [place] [address] Aug, [facility] [place] [facility] [address] [facility] [id number] [place] [address] Jul, [facility] [place] [facility] [address] [facility] [id number] [place] [address] Jul, [facility] [place] [facility] [address] [facility] [id number] [place] [address] Jul, [facility] [place] [facility] [address] [id number] [place] [address] Jul, [facility] [place] [facility] [address] [id number] [place] [address] Jul, [facility] [place] [facility] [address] [id number] [place] [address] Jul, [facility] [place] [facility] [address] [id number] [place] [address] Jul, [facility] [place] [facility] [address] [id number] [place] [address] Jul, [facility] [place] [facility] [address] [id number] [place] [address] Jul, [facility] [place] [facility] [address] [id number] [place] [address] Jul, [facility] [place] [facility] [address] [id number] [place] [address] Jul, [facility] [place] [facility] [address] [id number] [place] [address] Jul, [facility] [place] [facility] [address] [id number] [place] [address] Jun, [facility] [place] [facility] [address] [id number], [place] [address] Jun, [facility] [place] [facility] [address] [id number], [place] [address] May, [facility] [place] [facility] [address] [id number] [place] [address] May, [facility] [place] [facility] [address] [id number], [place] [address] May, [facility] [place] [facility] [address] [id number], [place] [address] May, [facility] [place] [facility] [address] [id number] [place] [address] May, [facility] [place] [facility] [address] [id number] [place] [address] May, [facility] [place] [facility] [address] [id number] [place] [address] May, [facility] [place] [facility] [address] [id number] [place] [address] May, 2013 [facility] [place] [facility] [address] [id number] [place] [address] May, [facility] [place] [facility] [address] [id number] [place] [address] May, [facility] [place] [facility] [address] [id number] [place] [address] May, [facility] [place] [facility] [address] [id number] [place] [address] May, [facility] [place] [facility] [address] [id number] [place] [address] 30 Apr, 2013 [facility] [place] [facility] [address] [id number] [place] [address] 30 Apr, 2013 [facility] [place] [facility] [address] [id number] [place] [address] 29 Apr, 2013 [facility] [place] [facility] [address] [id number] [place] [address] 29 Apr, 2013 [facility] [place] [facility] [address] [id number] [place] [address] Apr, 2013 [facility] [place] [facility] [address] [id number] [place] [address] Apr, 2013 [facility] [place] [facility] [address] [id number] [place] [address] Feb, [facility] [place] [facility] [address] [id number] [place] [address] Feb, [facility] [place] [facility] [address] [id number] [place] [address] Feb, [facility] [place] [facility] [address] [id number] [place] [address] Feb, [facility] [place] [facility] [address] [id number] [place] [address] Feb, [facility] [place] [facility] [address] [id number] [place] [address] Feb, [facility] [place] [facility] [address] [id number] [place] [address] Jan, [facility] [place] [facility] [address] [id number] [place] [address] Jan, [facility] [place] [facility] [address] [id number] [place] [address] Jan, [facility] [place] [facility] [address] [id number] [place] [address] Jan, [facility] [place] [facility] [address] [id number] [place] [address] Jan, [facility] [place] [facility] [address] [id number] [place] [address] Jan, [facility] [place] [facility] [address] [id number] [place] [address] Jan, [facility] [place] [facility] [address] [id number] [place] [address] Jan, [facility] [place] [facility] [address] [id number] [place] [address] December, [facility] [place] [facility] [address] [id number] [place] [address] December, [facility] [place] [facility] [address] [id number] [place] [address] December, [facility] [place] [facility] [address] [id number], [place] [address] December, [facility] [place] [facility] [address] [id number] [place] [address] Nov, [facility] [place] [facility] [address] [id number] [place] [address] Nov, [facility] [place] [facility] [address] [id number] [place] [address] Nov, [facility] [place] [facility] [address] [id number] [place] [address] Nov, [facility] [place] [facility] [address] [id number] [place] [address] Nov, [facility] [place] [facility] [address] [id number] [place] [address] Nov, [facility] [place] [facility] [address] [id number] [place] [address] Nov, [facility] [place] [facility] [address] [id number] [place] [address] Nov, [facility] [place] [facility] [address] [id number] [place] [address] Oct, [facility] [place] [facility] [address] [id number] [place] [address] Oct, [facility] [place] [facility] [address] [id number], [place] [address] Sep, [facility] [place] [facility] [address] [id number] [place] [address] Sep, [facility] [place] [facility] [address] [id number] [place] [id number] Sep, [facility] [place] [facility] [address] [id number] [place] [address] Sep, [facility] [place] [facility] [address] [id number] [place] [address] Sep, [facility] [place] [facility] [address] [id number] [place] [address] 14 Sep, 2013 [facility] [place] [facility] [address] [id number] [place] [address] Aug, [facility] [place] [facility] [address] [id number] [place] [address] Aug, [facility] [place] [facility] [address] [id number] [place] [address] Aug, [facility] [place] [facility] [address] [id number] [place] [address] Aug, [facility] [place] [facility] [address] [id number] [place] [address] Jul, [facility] [place] [facility] [address] [id number] [place] [address] Jul, [facility] [place] [facility] [address] [id number] [place] [address] Jul, [facility] [place] [facility] [address] [id number] [place] [address] Jul, [facility] [place] [facility] [address] [id number] [place] [address] Jun, [facility] [place] [facility] [address] [id number] [place] [address] Jun, [facility] [place] [facility] [address] [id number] [place] [address] May, [facility] [place] [facility] [address] [id number] [place] [address] May, [facility] [place] [facility] [address] [id number] [place] [address] May, [facility] [place] [facility] [address] [id number] [place] [address] May, [facility] [place] [facility] [address] [id number] [place] [address] May, [facility] [place] [facility] [address] [id number] [place] [address] 17 Apr, 2013 [facility] [place] [facility] [address] [id number] [place] [address] Apr, [facility] [place] [facility] [address] [id number] [place] [address] Mar, [facility] [place] [facility] [address] [id number] [place] [address] Mar, [facility] [place] [facility] [address] [id number] [place] [address] Mar, [facility] [place] [facility] [address] [id number] [place] [address] Mar, [facility] [place] [facility] [address] [id number] [place] [address] Feb, [facility] [place] [facility] [address] [id number] [place] [address] Feb, [facility] [place] [facility] [address] [id number] [place] [address] Feb, [facility] [place] [facility] [address] [id number] [place] [address] Feb, [facility] [place] [facility] [address] [id number], [place] [address] Feb, [facility] [place] [facility] [address] [id number], [place] [address] Jan, [facility] [place] [facility] [address] [id number] [place] [address] Jan, [facility] [place] [facility] [address] [id number] [place] [address] 14 Jan, 2013 [facility] [place] [facility] [address] [id number] [place] [address] 06 Jan, 2013 [facility] [place] [facility] [address] [id number] [place] [address] 06 Jan, 2013 [facility] [address] [id number] [place] [address] December, [facility] [address] [id number] [place] [address] December, [facility] [address] [id number] [place] [address] Nov, [facility] [address] [id number] [place] [address] Nov, [facility] [address] [id number] [place] [address] Oct, [facility] [address] [id number] [place] [address] Oct, [facility] [address] [id number] [place] [address] 05 Oct, 2012 [facility] [address] [id number] [place] [address] 14 Sep, 2012 [facility] [address] [id number] [place] [address], [address] [facility] [address] [id number] [place] [address] 16 Aug, 2012 [facility] [address] [id number] [place] [address] 15 Aug, 2012 [facility] [address] [id number] [place] [address] Aug, [facility] [address] [id number] [place] [address] Jul, [facility] [address] [id number] [place] [address] Jul, [facility] [address] [id number] [place] [address] Jul, [facility] [place] [facility] [address] [id number] [place] [address] Jul, [facility] [place] [facility] [address] [id number] [place] [address] Jul, [facility] [place] [facility] [address] [id number] [place] [address] Jul, [facility] [place] [facility] [address] [id number] [place] [address] Jul, [facility] [place] [facility] [address] [id number] [place] [address] Jul, [facility] [place] [facility] [address] [id number] [place] [address] Jun, [facility] [place] [facility] [address] [id number] [place] [address] Jun, [facility] [place] [facility] [address] [id number], [place] [address] Jun, [facility] [place] [facility] [address] [id number] [place] [address] Jun, [facility] [place] [facility] [address] [facility] [id number], [place] [address] Jun, [facility] [place] [facility] [address] [facility] [id number], [place] [address] Jun, [facility] [place] [facility] [address] [id number], [place] [address] May, [facility] [place] [facility] [address] [id number], [place] [address] May, [facility] [place] [facility] [address] [id number], [place] [address] May, [facility] [place] [facility] [address] [id number], [place] [address] May, [facility] [place] [facility] [address] [id number], [place] [address] 26 Apr, 2012 [facility] [place] [facility] [address] [id number] [place] [address] 06 Apr, 2012 [facility] [place] [facility] [address] [id number] [place] [address] 08 Mar, 2012 [facility] [place] [facility] [address] [id number] [place] [address] 28 Jan, 2012 [facility] [place] [facility] [address] [id number] [place] [address] 20 Jan, 2012 [facility] [place] [facility] [address] [id number] [place] [address] 16 Jan, 2012 [facility] [place] [facility] [address] [id number] [place] [address] 15 Jan, 2012 [facility] [place] [facility] [address] [id number] [place] [address] 14 Jan, 2012 [facility] [place] [facility] [address] [id number] [place] [address] 14 Jan, 2012 [facility] [place] [facility] [address] [id number] [place] [address] 07 Jan, 2012 [facility] [place] [facility] [address] [id number] [place] [address] December, [facility] [place] [facility] [address] [id number] [place] [address] December, [facility] [place] [facility] [address] [id number] [place] [address] December, [facility] [place] [facility] [address] [id number] [place] [address] December, [facility] [place] [facility] [address] [id number] [place] [address] Nov, [facility] [place] [facility] [address] [id number] [place] [address] Nov, [facility] [place] [facility] [address] [id number] [place] [address] 29 Oct, 2011 [facility] [address] [id number] [place] [address] 28 Oct, 2011 [facility] [place] [facility] [address] [id number] [place] [address] 15 Oct, 2011 [facility] [address] [id number] [place] [address] Sep, [facility] [place] [facility] [address] [id number] [place] [address] Sep, [facility] [place] [facility] [address] [id number] [place] [address] Sep, [facility] [address] [id number] [place] [address] Aug, [facility] [address] [id number] [place] [address] Aug, [facility] [address] [id number] [place] [address] Aug, [facility] [place] [facility] [address] [id number] [place] [address] Aug, [facility] [place] [facility] [address] [id number] [place] [address] Aug, [facility] [address] [id number] [place] [address] Aug, [facility] [place] [facility] [address] [id number] [place] [address] Aug, [facility] [place] [facility] [address] [id number] [place] [address] Jul, [facility] [place] [facility] [address] [id number] [place] [address] Jul, [facility] [place] [facility] [address] [id number] [place] [address] 30 Jun, 2011 [facility] [place] [facility] [address] [id number] [place] [address] 28 Jun, 2011 [facility] [place] [facility] [address] [id number] [place] [address] 17 Jun, 2011 [facility] [place] [facility] [address] [id number] [place] [address] 15 Jun, 2011 [facility] [place] [facility] [address] [id number] [place] [address] 14 Jun, 2011 [facility] [place] [facility] [address] [id number] [place] [address] 14 Jun, 2011 [facility] [place] [facility] [address] [id number] [place] [address] Jun, [facility] [place] [facility] [address] [id number] [place] [address] Jun, [facility] [place] [facility] [address] [id number], [place] [address] Jun, [facility] [place] [facility] [address] [id number], [place] [address] Jun, [facility] [place] [facility] [address] [id number], [place] [address] 31 May, 2011 [facility] [place] [facility] [address] [id number], [place] [address] 31 May, 2011 [facility] [place] [facility] [address] [id number], [place] [address] 25 May, 2011 [facility] [place] [facility] [address] [id number], [place] [address] 24 May, 2011 [facility] [place] [facility] [address] [id number], [place] [address] 18 May, 2011 [facility] [place] [facility] [address] [id number], [place] [address] 13 May, 2011 [facility] [place] [facility] [address] [facility] [id number] [place] [address] 13 Feb, 2011 [facility] [address] [id number] [place] [address] December, [facility] [address] [id number] [place] [address] [address], [address] [facility] [address] [facility] [id number] [place] [address] 29 Jul, 2010 [facility] [address] [id number] [place] [address] 22 Jul, 2010 [facility] [address] [facility] [id number] [place] [address] Jul, [facility] [address] [facility] [id number] [place] [address] [address], [address] [facility] [address] [facility] [id number] [place] [address] [address], [address] [facility] [address] [facility] [id number] [place] [address] [address], [address] [facility] [address] [facility] [id number] [place] [address] [address], [address] [facility] [address] [facility] [id number] [place] [address] 17 Jul, 2009 [facility] [address] [facility] [id number] [place] [address] [address], [address] [facility] [address] [facility] [id number], [place] [address] 10 Jul, 2009 [facility] [address] [facility] [id number] [place] [address] 15 Jan, 2009 [facility] [address] [facility] [id number] [place] [address] 16 Sep, 2008 [facility] [address] [facility] [id number], [place] [address] 11 Sep, 2008 IMMUNIZATIONS No Known Immunizations SOCIAL HISTORY Never Assessed REASON FOR VISIT Blood Pressure-pranayoden,RMA, pt denies of any issue with her blood pressure right now. pt is complaining of some stomach pain started about a week ago PLAN OF CARE Activity Details Follow Up 6 Months Reason:BP VITAL SIGNS Height 66 in 2018-07-29 Weight 179.9 lbs 2018-07-29 Temperature 97.0 degrees Fahrenheit 2018-07-29 Heart Rate 72 bpm 2018-07-29 Respiratory Rate 18 2018-07-29 Oximetry on room air:100 % 2018-07-29 BMI 29.03 kg/m2 2018-07-29 Blood pressure systolic 120 mmHg 2018-07-29 Blood pressure diastolic 82 mmHg 2018-07-29 MEDICATIONS Medication Instructions Dosage Frequency Start Date End Date Duration Status Clorazepate Dipotassium 7.5 MG Orally 4 times a day 1 tablet as needed 6h 30 days Active Sucralfate 1 GM Orally 4 times a day 1 tablet on an empty stomach 6h Jul, 30 day(s) Active Propranolol HCl 20 mg Orally Once a day prn tachycardia 1 tablet Jan, 90 Active Inderal LA 120 MG Orally Once a day. Take along with the 80mg Capsule 1 capsule 90 Active Omeprazole 20 mg Orally twice a day 1 capsule 12h Mar, 30 day(s) Active Melatonin 5 MG Orally Once a day 1 tablet at bedtime as needed with food 24h 30 day(s) Active Hyoscyamine Sulfate 0.125 mg Sublingual 2 times a day as needed 1 tablet by Oral route 4 times per day PRN Jul, Active Inderal LA 80 MG Orally Once a day. Take along with the 120 mg Capsule 1 capsule December, 90 days Active Hydrochlorothiazide 25 MG Orally Once a day 1 tablet 24h 90 days Active Ibuprofen 600 MG Orally Three times a day 1 tablet with food or milk as needed 8h May, Aug, 90 days Active RESULTS No Results PROCEDURES [...]
--- OUTSIDE RECORDS SUMMARY | 2019-01-22 20:40 | XMS REPORT ---
Author Author ENMA SAMSON Organization [facility] Address [address] [address] Care Team Providers Care Sign Designer Name Role Phone ENMA SAMSON Unavailable PROBLEMS Type Condition ICD9-CM Code GFW98-SA Code Onset Dates Condition Status SNOMED Code Problem Family history of diabetes mellitus Z83.3 Active 248934964 Problem Hot flashes N95.1 Active 235293735 Problem Excessive and frequent menstruation with irregular cycle N92.1 Active 550939702 Problem Diverticulitis K57.92 Active 417056366 Problem Gastroesophageal reflux disease with esophagitis K21.0 Active 356806016 Problem Mitral valve prolapse I34.1 Active 345707106 Problem Perimenopausal N95.1 Active 624582115394938 Problem Tachycardia R00.0 Active 4201659 Problem Abnormal uterine bleeding (AUB) N93.9 Active 58409014255984 Problem History of diverticulitis Z87.19 Active 677403087249130 Problem History of colon polyps Z86.010 Active 111218230 Problem Generalized anxiety disorder F41.1 Active 228814944 Problem Dense breast tissue R92.2 Active 937647399 Problem Hypertension I10 Active 23109372 Problem History of ovarian cyst Z87.42 Active 26579945 ALLERGIES Substance Reaction Event Type Date Status Sulfamethoxazole-Trimethoprim anaphylaxis Drug Allergy Jun, Active Erythromycin rash Drug Allergy Jun, Active Hydrocodone vomiting Non Drug Allergy Jun, Active ENCOUNTERS Encounter Location Date Diagnosis [facility] [address] [facility] [id number] [address] Aug, [facility] [address] [id number] [address] Aug, [facility] [address] [facility] [id number] [address] Jul, [facility] [id number] [place] [address] Jul, Other acute gastritis without hemorrhage K29.00 ; Generalized anxiety disorder F41.1 ; Tachycardia R00.0 and Essential hypertension I10 [facility] [id number] [place] [address] Jul, Generalized anxiety disorder F41.1 and Bereavement Z63.4 [facility] [id number] [place] [address] Jun, Generalized anxiety disorder F41.1 and Bereavement Z63.4 [facility] [id number] [place] [address] Jun, Generalized anxiety disorder F41.1 and Bereavement Z63.4 [facility] [address] [place] [address] Jun, Dental examination Z01.20 [facility] [id number] [place] [address] May, Generalized anxiety disorder F41.1 and Bereavement Z63.4 [facility] [id number] [place] [address] May, Encounter for immunization Z23 [facility] [id number] [place] [address] May, Generalized anxiety disorder F41.1 and Bereavement Z63.4 [facility] [id number] [place] [address] May, [facility] [id number] [place] [address] Apr, Generalized anxiety disorder F41.1 and Bereavement Z63.4 [facility] [id number] [place] [address] 17 Apr, 2018 [facility] [id number] [place] [address] Apr, Diverticulitis K57.92 [facility] [address] [place] [address] Apr, Generalized anxiety disorder F41.1 and Bereavement Z63.4 [facility] [id number] [place] [address] Mar, [facility] [id number] [place] [address] Mar, Diverticulitis K57.92 [facility] [id number] [place] [address] Mar, Generalized anxiety disorder F41.1 and Bereavement Z63.4 [facility] [id number] [place] [address] Mar, Hypertension I10 [facility] [id number] [place] [address] Mar, Generalized anxiety disorder F41.1 and Bereavement Z63.4 [facility] [id number] [place] [address] Feb, Generalized anxiety disorder F41.1 and Bereavement Z63.4 [facility] [id number] [place] [address] Feb, [facility] [id number] [place] [address] Feb, Generalized anxiety disorder F41.1 and Bereavement Z63.4 [facility] [id number] [place] [address] Feb, Generalized anxiety disorder F41.1 and Bereavement Z63.4 [facility] [id number] [place] [address] Jan, Hypertension I10 and Acute non-recurrent maxillary sinusitis J01.00 [facility] [address] [id number] [address] December, [facility] [address] [id number] [address] December, Hypertension I10 [facility] [address] [id number], [place] [address] December, Generalized anxiety disorder F41.1 [facility] [address] [id number], [place] [address] 16 Oct, 2017 Encounter for dental examination Z01.20 [facility] [address] [id number], [place] [address] Oct, Encounter for dental examination Z01.20 [facility] [address] [id number], [place] [address] Oct, Dental examination Z01.20 [facility] [address] [place] [address] Oct, Generalized anxiety disorder F41.1 [facility] [address] [id number], [place] [address] Aug, Dental examination Z01.20 [facility] [address], [place] [address] Aug, Generalized anxiety disorder F41.1 [facility] [address], [place] [address] Aug, [facility] [address] [id number], [place] [address] Aug, Encounter for dental examination Z01.20 [facility] [address], [place] [address] Aug, Subacute maxillary sinusitis J01.00 [facility] [address] [id number], [place] [address] Jul, Dental examination Z01.20 [facility] [address] [id number], [place] [address] Jul, Generalized anxiety disorder F41.1 [facility] [id number] [place] [address] Jul, Diverticulitis K57.92 [facility] [address], [place] [address] 28 Jun, 2017 Encounter for immunization Z23 [facility] [id number] [place] [address] Jun, Dental examination Z01.20 [facility] [id number] [place] [address] 14 Jun, 2017 Generalized anxiety disorder F41.1 [facility] [id number] [place] [address] 07 Jun, 2017 Dental examination Z01.20 [facility] [id number] [place] [address] May, [facility] [id number] [place] [phone] May, Dental examination Z01.20 [facility] [id number] [place] [phone] May, Dental examination Z01.20 [facility] [id number] [place] [address] May, Dental examination Z01.20 [facility] [address], [place] [address] May, [facility] [id number] [place] [address] May, Generalized anxiety disorder F41.1 [facility] [address] [place] [address] 05 May, 2017 Localized edema R60.0 ; Yeast vaginitis B37.3 and Gastroesophageal reflux disease with esophagitis K21.0 [facility] [address] [id number] [id number] 26 Apr, 2017 Dental examination Z01.20 [facility] [id number] [place] [address] Apr, Dental examination Z01.20 [facility] [address] [id number], [place] [address] 05 Apr, 2017 Dental examination Z01.20 [facility] [id number] [place] [address] Mar, Dyspepsia R10.13 [facility] [id number] [place] [address] Mar, Generalized anxiety disorder F41.1 [facility] [id number] [place] [address] Mar, Encounter for dental examination Z01.20 [facility] [id number] [place] [phone] Mar, [facility] [id number] [place] [phone] Mar, Dental examination Z01.20 [facility] [id number] [place] [address] Feb, Hypertension I10 and Tachycardia R00.0 [facility] [id number], [place] [address] Feb, [facility] [id number] [place] [address] Feb, Generalized anxiety disorder F41.1 [facility] [id number] [place] [phone] Feb, Dental examination Z01.20 [facility] [id number] [place] [address] Jan, Generalized anxiety disorder F41.1 [facility] [id number] [place] [address] December, Generalized anxiety disorder F41.1 [facility] [id number] [place] [phone] December, Encounter for dental examination Z01.20 [facility] [id number] [place] [address] Nov, [facility] [address] [address] Nov, [facility] [id number] [place] [address] Nov, Generalized anxiety disorder F41.1 [facility] [id number] [place] [address] Oct, [facility] [id number] [place] [address] [phone] Oct, Dental examination Z01.20 [facility] [id number] [place] [address] Oct, Vaginal dryness N89.8 [facility] [id number] [place] [address] Oct, Pseudoseizures F44.5 [facility] [id number] [place] [address] Oct, Generalized anxiety disorder F41.1 [facility] [id number] [place] [address] Sep, Abnormal uterine bleeding (AUB) N93.9 ; Vaginal dryness N89.8 and Screening breast examination Z12.39 [facility] [id number] [place] [address] Sep, Dental examination Z01.20 [facility] [id number] [place] [address] Sep, Generalized anxiety disorder F41.1 [facility] [address] [id number], [place] [address] 06 Sep, 2016 Unspecified ovarian cyst, right side N83.201 ; Unspecified ovarian cyst, left side N83.202 ; Yeast infection of the vagina B37.3 ; Mitral valve prolapse I34.1 and Hypertension I10 [facility] [address] [place] [address] Aug, Generalized anxiety disorder F41.1 [facility] [id number] [place] [address] Jul, [facility] [id number] [place] [address] Jul, Generalized anxiety disorder F41.1 [facility] [id number] [place] [address] Jun, Generalized anxiety disorder F41.1 [facility] [id number] [place] [address] May, Encounter for immunization Z23 [facility] [id number] [place] [address] 17 May, 2016 Generalized anxiety disorder F41.1 and Depressive disorder, not elsewhere classified F32.9 [facility] [id number] [place] [address] 28 Apr, 2016 Hypertension I10 [facility] [id number] [place] [address] 22 Apr, 2016 Cervicalgia M54.2 [facility] [address] [place] [address] 12 Apr, 2016 Cervicalgia M54.2 [facility] [id number] [place] [address] 09 Mar, 2016 Generalized anxiety disorder F41.1 and Depressive disorder, not elsewhere classified F32.9 [facility] [address] [place] [phone] 14 Feb, 2016 Visit for dental examination Z01.20 [facility] [address] [place] [address] 11 Feb, 2016 Pseudoseizures F44.5 ; Migraine without status migrainosus, not intractable, unspecified migraine type G43.909 and Essential hypertension I10 [facility] [address] [id number] 06 Feb, 2016 Dental examination Z01.20 [facility] [id number] [place] [address] 05 Feb, 2016 Generalized anxiety disorder F41.1 and Depressive disorder, not elsewhere classified F32.9 [facility] [id number] [place] [address] 27 Jan, 2016 Tachycardia R00.0 [facility] [id number] [place] [address] December, Eustachian tube dysfunction, bilateral H69.83 [facility] [id number] [place] [address] December, Generalized anxiety disorder F41.1 and Depressive disorder, not elsewhere classified F32.9 [facility] [id number] [place] [address] Nov, [facility] [id number] [place] [address] 28 Nov, 2015 [place] [facility] [id number] [place] [address] Nov, Hypertension I10 ; Onychomycosis B35.1 ; [...] and Complex cyst of left ovary N83.29 [facility] [id number] [place] [address] 14 Nov, 2015 Sinusitis J32.9 [place] [address] [address] Oct, Complex cyst of left ovary N83.29 [place] [address] [address] Oct, Onychomycosis B35.1 [facility] [address] [id number] 17 Oct, 2015 Dental examination Z01.20 [facility] [facility] [address] [address] 09 Oct, 2015 Well woman exam Z01.419 [...] R92.2 and History of colon polyps Z86.010 [facility] [facility] [address] [address] Oct, Generalized anxiety disorder F41.1 and Depressive disorder, not elsewhere classified F32.9 [facility] [facility] [address] [address] Sep, Hypertension I10 and Onychomycosis B35.1 [facility] [facility] [address] [address] Sep, Skin tags, multiple acquired L91.8 [facility] [facility] [address] [address] Aug, [facility] [address] [address] Aug, [facility] [address] [place] [address] Aug, [facility] [id number] [place] [address] Aug, Generalized anxiety disorder F41.1 and Depressive disorder, not elsewhere classified F32.9 [facility] [id number] [place] [address] Jul, Skin lesion L98.9 [facility] [id number] [place] [address] Jun, Generalized anxiety disorder F41.1 and Depressive disorder, not elsewhere classified F32.9 [facility] [id number] [place] [address] Jun, [facility] [id number] [place] [address] Jun, Generalized anxiety disorder F41.1 [facility] [id number] [place] [address] May, Encounter for immunization Z23 and Right shoulder pain M25.511 [facility] [id number] [place] [address] Apr, [facility] [id number] [place] [address] Apr, Generalized anxiety disorder 300.02 and Depressive disorder, not elsewhere classified 311 [facility] [address] [place] [address] [id number] Mar, Dental examination V72.2 [facility] [id number] [place] [address] Mar, Generalized anxiety disorder 300.02 and Depressive disorder, not elsewhere classified 311 [facility] [id number] [place] [address] Mar, Depression, major, recurrent, 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.35 and 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 [facility] [address], [place] [address] Feb, Generalized anxiety disorder 300.02 and Depressive disorder, not elsewhere classified 311 [facility] [id number] [id number] 07 Feb, 2015 Dental examination V72.2 [facility] [id number] [place] [address] Jan, Generalized anxiety disorder 300.02 and Depressive disorder, not elsewhere classified 311 [facility] [id number] [place] [address] Jan, [facility] [id number] [place] [address] December, Generalized anxiety disorder 300.02 and Depressive disorder, not elsewhere classified 311 [facility] [id number] [place] [address] December, Major depressive disorder, recurrent, unspecified 296.30 and Panic disorder with agoraphobia 300.21 [facility] [id number] [place] [address] Nov, [facility] [address] [place] [address] Nov, [facility] [id number] [place] [address] Oct, [facility] [address] [place] [address] Oct, [facility] [id number] [place] [address] Oct, [facility] [id number] [place] [address] Oct, [facility] [id number] [place] [address] Sep, [facility] [place] [facility] [address] [id number] [place] [address] Sep, 2014 [facility] [place] [facility] [address] [id number] [place] [address] Sep, 2014 [facility] [place] [facility] [address] [facility] [id number] [place] [address] Sep, 2014 [facility] [place] [facility] [address] [id number] [place] [address] Sep, 2014 [facility] [place] [facility] [address] [id number] [place] [address] Sep, 2014 [facility] [place] [facility] [address] [id number] [place] [address] Sep, 2014 [facility] [place] [facility] [address] [id number] [place] [address] Sep, 2014 [facility] [place] [facility] [address] [id number] [place] [address] Sep, 2014 [facility] [place] [facility] [address] [id number] [place] [address] Sep, 2014 [facility] [place] [facility] [address] [facility] [id number] [place] [address] Aug, [facility] [place] [facility] [address] [facility] [id number] [place] [address] Aug, [facility] [place] [facility] [address] [facility] [id number] [place] [address] Jul, [facility] [place] [facility] [address] [id number] [place] [address] Jul, [facility] [place] [facility] [address] [id number] [place] [address] Jul, [facility] [place] [facility] [address] [facility] [id number] [place] [address] Jul, [facility] [place] [facility] [address] [id number] [place] [address] Jul, [facility] [place] [facility] [address] [id number] [place] [address] Jul, [facility] [place] [facility] [address] [id number] [place] [address] Jul, [facility] [place] [facility] [address] [id number] [place] [address] Jul, [facility] [place] [facility] [address] [id number] [place] [address] Jul, [facility] [place] [facility] [address] [id number] [place] [address] Jul, [facility] [place] [facility] [address] [id number] [place] [address] Jul, [facility] [place] [facility] [address] [id number] [place] [address] Jul, [facility] [place] [facility] [address] [id number] [place] [address] Jun, [facility] [place] [facility] [address] [id number] [place] [address] Jun, [facility] [place] [facility] [address] [id number] [place] [address] May, [facility] [place] [facility] [address] [id number] [place] [address] May, [facility] [place] [facility] [address] [id number] [place] [address] May, [facility] [place] [facility] [address] [id number] [place] [address] May, [facility] [place] [facility] [address] [id number] [place] [address] May, [facility] [place] [facility] [address] [id number] [place] [address] May, [facility] [place] [facility] [address] [id number] [place] [address] May, [facility] [place] [facility] [address] [id number] [place] [address] May, [facility] [place] [facility] [address] [id number] [place] [address] May, [facility] [place] [facility] [address] [id number] [place] [address] May, [facility] [place] [facility] [address] [id number] [place] [address] May, [facility] [place] [facility] [address] [id number] [place] [address] May, [facility] [place] [facility] [address] [id number] [place] [address] Apr, [facility] [place] [facility] [address] [id number] [place] [address] 30 Apr, 2014 [facility] [place] [facility] [address] [id number] [place] [address] Apr, [facility] [place] [facility] [address] [id number] [place] [address] Apr, [facility] [place] [facility] [address] [id number] [place] [address] Apr, [facility] [place] [facility] [address] [id number], [place] [address] Apr, [facility] [place] [facility] [address] [id number] [place] [address] Feb, [facility] [place] [facility] [address] [id number] [place] [address] Feb, [facility] [place] [facility] [address] [id number] [place] [address] Feb, [facility] [place] [facility] [address] [id number] [place] [address] Feb, [facility] [place] [facility] [address] [id number] [place] [address] Feb, [facility] [place] [facility] [address] [id number] [place] [address] Feb, [facility] [place] [facility] [address] [id number] [place] [address] Jan, [facility] [place] [facility] [address] [id number] [place] [address] Jan, [facility] [place] [facility] [address] [id number] [place] [address] Jan, [facility] [place] [facility] [address] [id number] [place] [address] Jan, [facility] [place] [facility] [address] [id number] [place] [address] Jan, [facility] [place] [facility] [address] [id number] [place] [address] Jan, [facility] [place] [facility] [address] [id number] [place] [address] Jan, [facility] [place] [facility] [address] [id number] [place] [address] Jan, [facility] [place] [facility] [address] [id number] [place] [address] December, [facility] [place] [facility] [address] [id number] [place] [address] December, [facility] [place] [facility] [address] [id number] [place] [address] December, [facility] [place] [facility] [address] [id number] [place] [address] December, [facility] [place] [facility] [address] [id number] [place] [address] Nov, [facility] [place] [facility] [address] [id number] [place] [address] Nov, [facility] [place] [facility] [address] [id number] [place] [address] Nov, [facility] [place] [facility] [address] [id number] [place] [address] Nov, [facility] [place] [facility] [address] [id number] [place] [address] Nov, [facility] [place] [facility] [address] [id number] [place] [address] Nov, [facility] [place] [facility] [address] [id number] [place] [address] Nov, [facility] [place] [facility] [address] [id number] [place] [address] Nov, [facility] [place] [facility] [address] [id number] [place] [address] Oct, [facility] [place] [facility] [address] [id number] [place] [address] Oct, [facility] [place] [facility] [address] [id number] [place] [address] Sep, [facility] [place] [facility] [address] [id number] [place] [address] Sep, [facility] [place] [facility] [address] [id number] [id number] Sep, [facility] [place] [facility] [address] [id number] [place] [address] Sep, [facility] [place] [facility] [address] [id number] [place] [address] Sep, [facility] [place] [facility] [address] [id number] [place] [address] Sep, [facility] [place] [facility] [address] [id number], [place] [address] Aug, [facility] [place] [facility] [address] [id number] [place] [address] Aug, [facility] [place] [facility] [address] [id number] [place] [address] Aug, [facility] [place] [facility] [address] [id number] [place] [address] Aug, [facility] [place] [facility] [address] [id number] [place] [address] Jul, [facility] [place] [facility] [address] [id number] [place] [address] Jul, [facility] [place] [facility] [address] [id number] [place] [address] Jul, [facility] [place] [facility] [address] [id number] [place] [address] Jul, [facility] [place] [facility] [address] [id number] [place] [address] Jun, [facility] [place] [facility] [address] [id number] [place] [address] Jun, [facility] [place] [facility] [address] [id number] [place] [address] May, [facility] [place] [facility] [address] [id number], [place] [address] 24 May, 2013 [facility] [place] [facility] [address] [id number], [place] [address] May, [facility] [place] [facility] [address] [id number], [place] [address] 11 May, 2013 [facility] [place] [facility] [address] [id number], [place] [address] 10 May, 2013 [facility] [place] [facility] [address] [id number] [place] [address] 17 Apr, 2013 [facility] [place] [facility] [address] [id number] [place] [address] 10 Apr, 2013 [facility] [address] [id number] [place] [address] Mar, [facility] [place] [facility] [address] [id number] [place] [address] Mar, [facility] [place] [facility] [address] [id number] [place] [address] Mar, [facility] [place] [facility] [address] [id number] [place] [address] Mar, [facility] [place] [facility] [address] [id number] [place] [address] Feb, [facility] [place] [facility] [address] [id number] [place] [address] Feb, [facility] [place] [facility] [address] [id number] [place] [address] Feb, [facility] [address] [id number] [place] [address] Feb, [facility] [place] [facility] [address] [id number] [place] [address] Feb, [facility] [place] [facility] [address] [id number] [place] [address] Jan, [facility] [place] [facility] [address] [id number] [place] [address] Jan, [facility] [place] [facility] [address] [id number] [place] [address] Jan, [facility] [place] [facility] [address] [id number] [place] [address] Jan, [facility] [place] [facility] [address] [id number] [place] [address] Jan, [facility] [place] [facility] [address] [id number] [place] [address] December, [facility] [address] [id number] [place] [address] December, [facility] [address] [id number] [place] [address] Nov, [facility] [address] [id number] [place] [address] Nov, [facility] [address] [id number] [place] [address] Oct, [facility] [address] [id number] [place] [address] Oct, [facility] [address] [id number] [place] [address] Oct, [facility] [address] [id number] [place] [address] 14 Sep, 2012 [facility] [address] [id number] [place] [address] Aug, [facility] [address] [id number] [place] [address] Aug, [facility] [address] [id number] [place] [address] Aug, [facility] [address] [id number], [place] [address] Aug, [facility] [place] [facility] [address] [id number], [place] [address] Jul, [facility] [place] [facility] [address] [id number] [place] [address] Jul, [facility] [place] [facility] [address] [id number] [place] [address] Jul, [facility] [place] [facility] [address] [id number] [place] [address] Jul, [facility] [place] [facility] [address] [id number] [place] [address] Jul, [facility] [place] [facility] [address] [id number] [place] [address] Jul, [facility] [place] [facility] [address] [id number] [place] [address] Jul, [facility] [place] [facility] [address] [facility] [id number] [place] [address] Jul, [facility] [place] [facility] [address] [id number] [place] [address] Jun, [facility] [place] [facility] [address] [id number] [place] [address] Jun, [facility] [place] [facility] [address] [id number] [place] [address] Jun, [facility] [place] [facility] [address] [facility] [id number] [place] [address] Jun, [facility] [place] [facility] [address] [id number] [place] [address] Jun, [facility] [place] [facility] [address] [facility] [id number] [place] [address] Jun, [facility] [place] [facility] [address] [facility] [id number] [place] [address] May, [facility] [place] [facility] [address] [id number] [place] [address] May, [facility] [place] [facility] [address] [id number], [place] [address] May, [facility] [place] [facility] [address] [id number] [place] [address] May, [facility] [place] [facility] [address] [facility] [id number] [place] [address] Apr, [facility] [place] [facility] [address] [facility] [id number], [place] [address] Apr, 2012 [facility] [place] [facility] [address] [id number] [place] [address] 08 Mar, 2012 [facility] [place] [facility] [address] [id number] [place] [address] 28 Jan, 2012 [facility] [place] [facility] [address] [id number] [place] [address] 20 Jan, 2012 [facility] [place] [facility] [address] [id number] [place] [address] 16 Jan, 2012 [facility] [place] [facility] [address] [id number] [place] [address] 15 Jan, 2012 [facility] [place] [facility] [address] [id number] [place] [address] 14 Jan, 2012 [facility] [place] [facility] [address] [id number] [place] [address] 14 Jan, 2012 [facility] [place] [facility] [address] [id number] [place] [address] 07 Jan, 2012 [facility] [place] [facility] [address] [id number] [place] [address] December, [facility] [place] [facility] [address] [id number] [place] [address] December, [facility] [place] [facility] [address] [id number] [place] [address] December, [facility] [place] [facility] [address] [id number] [place] [address] December, [facility] [place] [facility] [address] [id number] [place] [address] Nov, [facility] [place] [facility] [address] [id number] [place] [address] Nov, [facility] [place] [facility] [address] [id number] [place] [address] Oct, [facility] [place] [facility] [address] [id number] [place] [address] Oct, [facility] [address] [id number] [place] [address] Oct, [facility] [address] [id number] [place] [address] Sep, [facility] [address] [id number] [place] [address] Sep, [facility] [address] [id number] [place] [address] Sep, [facility] [address] [id number] [place] [address] Aug, [facility] [address] [id number] [place] [address] Aug, [facility] [address] [id number] [place] [address] Aug, [facility] [address] [id number] [place] [address] Aug, [facility] [address] [id number] [place] [address] Aug, [facility] [address] [id number] [place] [address] Aug, [facility] [address] [id number] [place] [address] Aug, [facility] [address] [id number] [place] [address] Jul, [facility] [place] [facility] [address] [id number] [place] [address] Jul, [facility] [place] [facility] [address] [id number] [place] [address] Jun, [facility] [place] [facility] [address] [id number] [place] [address] Jun, [facility] [place] [facility] [address] [id number] [place] [address] 17 Jun, 2011 [facility] [place] [facility] [address] [id number] [place] [address] 15 Jun, 2011 [facility] [place] [facility] [address] [id number] [place] [address] 14 Jun, 2011 [facility] [place] [facility] [address] [id number] [place] [address] 14 Jun, 2011 [facility] [place] [facility] [address] [id number] [place] [address] Jun, [facility] [place] [facility] [address] [id number] [place] [address] Jun, [facility] [place] [facility] [address] [id number] [place] [address] Jun, [facility] [place] [facility] [address] [id number] [place] [address] Jun, [facility] [place] [facility] [address] [id number] [place] [address] May, [facility] [place] [facility] [address] [id number] [place] [address] May, [facility] [place] [facility] [address] [id number] [place] [address] May, [facility] [place] [facility] [address] [id number] [place] [address] 24 May, 2011 [facility] [place] [facility] [address] [id number] [place] [address] May, [facility] [place] [facility] [address] [id number] [place] [address] May, [facility] [place] [facility] [address] [id number] [place] [address] Feb, [facility] [place] [facility] [address] [id number] [place] [address] December, [facility] [address] [facility] [id number], [place] [address] Jul, [facility] [address] [facility] [id number], [place] [address] Jul, [facility] [address] [facility] [id number], [place] [address] Jul, [facility] [address] [facility] [id number], [place] [address] Jul, [facility] [address] [facility] [id number], [place] [address] Jun, [facility] [address] [facility] [id number], [place] [address] Jul, [facility] [id number], [place] [address] Jul, [facility] [id number], [place] [address] Jul, [facility] [id number], [place] [address] Jul, [facility] [id number], [place] [address] Jul, [facility] [address] [id number], [place] [address] Jul, [facility] [address] [id number], [place] [address] Jan, [facility] [address] [id number], [place] [address] Sep, [facility] [address] [id number], [place] [address] Sep, IMMUNIZATIONS No Known Immunizations SOCIAL HISTORY Never Assessed REASON FOR VISIT [place] fell off PLAN OF CARE VITAL SIGNS Height 66 in 2018-06-26 Heart Rate 76 bpm 2018-06-26 Blood pressure systolic 130 mmHg 2018-06-26 Blood pressure diastolic 79 mmHg 2018-06-26 MEDICATIONS Medication Instructions Dosage Frequency Start Date End Date Duration Status Inderal LA 80 MG Orally Once a day. Take along with the 120 mg Capsule 1 capsule December, 90 days Active Propranolol HCl 20 mg Orally Once a day prn tachycardia 1 tablet Jan, 90 Active Inderal LA 120 MG Orally Once a day. Take along with the 80mg Capsule 1 capsule December, 90 days Active Hydrochlorothiazide 25 MG Orally Once a day 1 tablet 24h 90 days Active Omeprazole 20 mg Orally twice a day 1 capsule 12h Mar, 30 day(s) Active Zofran 8 MG Orally TID 1 tablet 8h Mar, Active Ibuprofen 600 MG Orally Three times a day 1 tablet with food or milk as needed 8h May, Aug, 90 days Active Melatonin 5 MG Orally Once a day 1 tablet at bedtime as needed with food 24h 30 day(s) Active Clorazepate Dipotassium 7.5 MG Orally 4 times a day 1 tablet as needed 6h 30 days Active Hyoscyamine Sulfate 0.125 mg Sublingual 2 times a day as needed 1 tablet by Oral route 4 times per day PRN Jul, Active Fluconazole 150 MG Orally now and may repeat in 3 days 1 tablet May, Active RESULTS No Results PROCEDURES Procedure Date Ordered Result Body Site LTD ORAL EVALUATION - PROBLEM FOCUS Jun 26, 2018 INTRAORL-PERIAPICAL 1 FILM [id number] Jun 26, 2018 INSTRUCTIONS MEDICATIONS ADMINISTERED No Known Medications [...]
--- OUTSIDE RECORDS SUMMARY | 2019-01-22 20:41 | XMS REPORT ---
Author Author KVNG MERCHANT Organization [facility] Address [address] [place] [address] Care Team Providers Care Talcer Name Role Phone KVNG MERCHANT Unavailable PROBLEMS Type Condition ICD9-CM Code OLE95-ON Code Onset Dates Condition Status SNOMED Code Problem Family history of diabetes mellitus Z83.3 Active 722382321 Problem Hot flashes N95.1 Active 586478813 Problem Excessive and frequent menstruation with irregular cycle N92.1 Active 814978905 Problem Diverticulitis K57.92 Active 755586720 Problem Gastroesophageal reflux disease with esophagitis K21.0 Active 375797598 Problem Mitral valve prolapse I34.1 Active 303591111 Problem Perimenopausal N95.1 Active 020651728366577 Problem Tachycardia R00.0 Active 0573503 Problem Abnormal uterine bleeding (AUB) N93.9 Active 27747408281234 Problem History of diverticulitis Z87.19 Active 192634390794220 Problem History of colon polyps Z86.010 Active 636376395 Problem Generalized anxiety disorder F41.1 Active 564295278 Problem Dense breast tissue R92.2 Active 652563465 Problem Hypertension I10 Active 96041951 Problem History of ovarian cyst Z87.42 Active 35816683 ALLERGIES No Information ENCOUNTERS Encounter Location Date Diagnosis [facility] [address] [facility] [id number] [address] Aug, [facility] [address] [facility] [id number] [place] [address] Aug, [facility] [address] [id number] [address] Jul, [facility] [address] [facility] [id number] [address] Jul, Other acute gastritis without hemorrhage K29.00 ; Generalized anxiety disorder F41.1 ; Tachycardia R00.0 and Essential hypertension I10 [facility] [address] [address] Jul, Generalized anxiety disorder F41.1 and Bereavement Z63.4 [facility] [address] [place] [address] Jun, Generalized anxiety disorder F41.1 and Bereavement Z63.4 [facility] [id number] [place] [address] Jun, Generalized anxiety disorder F41.1 and Bereavement Z63.4 [facility] [address] [place], [place] [id number] [place] [address] Jun, Dental examination Z01.20 [facility] [id number] [place] [address] May, Generalized anxiety disorder F41.1 and Bereavement Z63.4 [facility] [id number] [place] [address] May, Encounter for immunization Z23 [facility] [id number] [place] [address] May, Generalized anxiety disorder F41.1 and Bereavement Z63.4 [facility] [id number] [place] [address] May, [facility] [id number] [place] [address] 24 Apr, 2018 Generalized anxiety disorder F41.1 and Bereavement Z63.4 [facility] [id number] [place] [address] 17 Apr, 2018 [facility] [id number] [place] [address] 13 Apr, 2018 Diverticulitis K57.92 [facility] [id number] [place] [address] Apr, Generalized anxiety disorder F41.1 and Bereavement Z63.4 [facility] [id number] [place] [address] Mar, [facility] [id number] [place] [address] Mar, Diverticulitis K57.92 [facility] [address] [address] Mar, Generalized anxiety disorder F41.1 and Bereavement Z63.4 [facility] [id number] [place] [address] Mar, Hypertension I10 [facility] [id number] [place] [address] Mar, Generalized anxiety disorder F41.1 and Bereavement Z63.4 [facility] [id number] [place] [address] Feb, Generalized anxiety disorder F41.1 and Bereavement Z63.4 [place] [id number] [place] [address] Feb, [facility] [id number] [place] [address] Feb, Generalized anxiety disorder F41.1 and Bereavement Z63.4 [facility] [id number] [place] [address] Feb, Generalized anxiety disorder F41.1 and Bereavement Z63.4 [facility] [id number] [place] [address] Jan, Hypertension I10 and Acute non-recurrent maxillary sinusitis J01.00 [facility] [id number] [place] [address] December, [facility] [id number] [place] [address] December, Hypertension I10 [facility] [address] [id number] [address] December, Generalized anxiety disorder F41.1 [facility] [address] [id number][place] [address] 16 Oct, 2017 Encounter for dental examination Z01.20 [facility] [address] [id number], [place] [address] 06 Oct, 2017 Encounter for dental examination Z01.20 [facility] [address] [id number][place] [address] Oct, Dental examination Z01.20 [facility] [address] [facility] [id number] [place] [address] Oct, Generalized anxiety disorder F41.1 [facility] [id number] [place] [address] Aug, Dental examination Z01.20 [facility] [address] [facility] [id number] [place] [address] Aug, Generalized anxiety disorder F41.1 [facility] [id number] [place] [address] Aug, [facility] [address] [id number], [place] [address] Aug, Encounter for dental examination Z01.20 [facility] [id number] [place] [address] Aug, Subacute maxillary sinusitis J01.00 [facility] [id number] [place] [address] Jul, Dental examination Z01.20 [facility] [address] [facility] [id number] [place] [address] Jul, Generalized anxiety disorder F41.1 [facility] [id number] [place] [address] Jul, Diverticulitis K57.92 [facility] [address] [address] Jun, Encounter for immunization Z23 [facility] [address] [id number], [place] [address] 22 Jun, 2017 Dental examination Z01.20 [facility] [address] [place] [address] 14 Jun, 2017 Generalized anxiety disorder F41.1 [facility] [address] [id number][place] [address] 07 Jun, 2017 Dental examination Z01.20 [facility] [address] [place] [address] May, [facility] [id number] [place] [phone] May, Dental examination Z01.20 [facility] [id number] [place] [id number] May, Dental examination Z01.20 [facility] [id number] [address] May, Dental examination Z01.20 [facility] [address]65100[place] [address] May, [facility] [id number] [place] [address] May, Generalized anxiety disorder F41.1 [facility] [address] [address] May, Localized edema R60.0 ; Yeast vaginitis B37.3 and Gastroesophageal reflux disease with esophagitis K21.0 [facility] [address] [phone] Apr, Dental examination Z01.20 [facility] [address] [id number], [place] [address] 21 Apr, 2017 Dental examination Z01.20 [facility] [address] [id number], [place] [address] 05 Apr, 2017 Dental examination Z01.20 [facility] [address] [address] Mar, Dyspepsia R10.13 [facility] [id number] [place] [address] Mar, Generalized anxiety disorder F41.1 [facility] [address] [id number], [place] [address] Mar, Encounter for dental examination Z01.20 [facility] [id number] [place] [id number] Mar, [facility] [id number] [place] [phone] Mar, Dental examination Z01.20 [facility] [id number] [place] [address] Feb, Hypertension I10 and Tachycardia R00.0 [facility] [address] [id number][place] [address] Feb, [facility] [id number] [place] [address] Feb, Generalized anxiety disorder F41.1 [facility] [address] [place] [id number] Feb, Dental examination Z01.20 [facility] [id number] [place] [address] Jan, Generalized anxiety disorder F41.1 [facility] [id number] [place] [address] December, Generalized anxiety disorder F41.1 [facility] [id number] [place] [phone] December, Encounter for dental examination Z01.20 [facility] [address]65100[place] [address] Nov, [facility] [address] [place] [address] Nov, [facility] [address] [place] [address] Nov, Generalized anxiety disorder F41.1 [facility] [address] [place] [address] Oct, [facility] [id number] [place] [phone] Oct, Dental examination Z01.20 [facility] [address] [place] [address] Oct, Vaginal dryness N89.8 [facility] [address] [place] [address] Oct, Pseudoseizures F44.5 [facility] [address] [place] [address] Oct, Generalized anxiety disorder F41.1 [facility] [address] [place] [address] 28 Sep, 2016 Abnormal uterine bleeding (AUB) N93.9 ; Vaginal dryness N89.8 and Screening breast examination Z12.39 [facility] [address]100[place] [address] Sep, Dental examination Z01.20 [facility] [address] [place] [address] Sep, Generalized anxiety disorder F41.1 [facility] [address] [address] 06 Sep, 2016 Unspecified ovarian cyst, right side N83.201 ; Unspecified ovarian cyst, left side N83.202 ; Yeast infection of the vagina B37.3 ; Mitral valve prolapse I34.1 and Hypertension I10 [facility] [id number] [place] [address] 18 Aug, 2016 Generalized anxiety disorder F41.1 [facility] [id number] [place] [address] 28 Jul, 2016 [facility] [address] [address] Jul, Generalized anxiety disorder F41.1 [facility] [id number] [place] [address] Jun, Generalized anxiety disorder F41.1 [facility] [id number] [place] [address] 28 May, 2016 Encounter for immunization Z23 [facility] [id number] [place] [address] 17 May, 2016 Generalized anxiety disorder F41.1 and Depressive disorder, not elsewhere classified F32.9 [facility] [id number] [place] [address] 28 Apr, 2016 Hypertension I10 [facility] [id number] [place] [address] 22 Apr, 2016 Cervicalgia M54.2 [facility] [address] [place] [address] Apr, Cervicalgia M54.2 [facility] [id number] [place] [address] 09 Mar, 2016 Generalized anxiety disorder F41.1 and Depressive disorder, not elsewhere classified F32.9 [facility] [address] [place] [id number] 14 Feb, 2016 Visit for dental examination Z01.20 [facility] [id number] [place] [address] 11 Feb, 2016 Pseudoseizures F44.5 ; Migraine without status migrainosus, not intractable, unspecified migraine type G43.909 and Essential hypertension I10 [facility] [address] [place] [id number] 06 Feb, 2016 Dental examination Z01.20 [facility] [id number] [place] [address] 05 Feb, 2016 Generalized anxiety disorder F41.1 and Depressive disorder, not elsewhere classified F32.9 [place] [id number] [place] [address] 27 Jan, 2016 Tachycardia R00.0 [place] [address] [address] December, Eustachian tube dysfunction, bilateral H69.83 [place] [id number] [place] [address] December, Generalized anxiety disorder F41.1 and Depressive disorder, not elsewhere classified F32.9 [place] [id number] [place] [address] 29 Nov, 2015 [place] [id number] [place] [address] 28 Nov, 2015 [facility] [id number] [place] [address] 20 Nov, 2015 Hypertension I10 ; Onychomycosis B35.1 ; Encounter [...] and Complex cyst of left ovary N83.29 [facility] [id number] [place] [address] 14 Nov, 2016 Sinusitis J32.9 [place] [address] [address] Oct, Complex cyst of left ovary N83.29 [place] [address] [address] Oct, Onychomycosis B35.1 [facility] [address] [id number] Oct, Dental examination Z01.20 [place] [address] [address] 09 Oct, 2015 Well woman exam Z01.419 [...] R92.2 and History of colon polyps Z86.010 [place] [address] [address] Oct, Generalized anxiety disorder F41.1 and Depressive disorder, not elsewhere classified F32.[address] [address] Sep, Hypertension I10 and Onychomycosis B35.1 [place] [address] [address] Sep, Skin tags, multiple acquired L91.8 [place] [address] [address] Aug, [place] [address] [address] Aug, [place] [address] [address] Aug, [facility] [address] [place] [address] Aug, Generalized anxiety disorder F41.1 and Depressive disorder, not elsewhere classified F32.9 [facility] [id number] [place] [address] Jul, Skin lesion L98.9 [facility] [id number] [place] [address] Jun, Generalized anxiety disorder F41.1 and Depressive disorder, not elsewhere classified F32.9 [facility] [id number] [place] [address] Jun, [facility] [id number] [place] [address] Jun, Generalized anxiety disorder F41.1 [place] [address] [address] May, Encounter for immunization Z23 and Right shoulder pain M25.511 [facility] [id number] [place] [address] Apr, [facility] [id number] [place] [address] 14 Apr, 2015 Generalized anxiety disorder 300.02 and Depressive disorder, not elsewhere classified 311 [facility] [id number] [place] [address] [id number] Mar, Dental examination V72.2 [facility] [id number] [place] [address] Mar, Generalized anxiety disorder 300.02 and Depressive disorder, not elsewhere classified 311 [facility] [id number] [place] [address] Mar, Depression, major, recurrent, 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.35 and 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 [facility] [address] [address] Feb, Generalized anxiety disorder 300.02 and Depressive disorder, not elsewhere classified 311 [facility] [id number] [address] Feb, Dental examination V72.2 [facility] [address] [address] 09 Jan, 2015 Generalized anxiety disorder 300.02 and Depressive disorder, not elsewhere classified 311 [facility] [address] [address] Jan, [facility] [address] [address] December, Generalized anxiety disorder 300.02 and Depressive disorder, not elsewhere classified 311 [facility] [address] [address] December, Major depressive disorder, recurrent, unspecified 296.30 and Panic disorder with agoraphobia 300.21 [facility] [address] [address] Nov, [facility] [address] [address] Nov, [facility] [address] [address] Oct, [facility] [address] [address] Oct, [facility] [address] [address] Oct, [facility] [address] [address] Oct, [facility] [address] [address] Sep, [facility] [address] [address] Sep, [facility] [place] [facility] [address] [facility] [id number] [place] [address] Sep, 2014 [facility] [place] [facility] [address] [id number] [place] [address] Sep, 2014 [facility] [place] [facility] [address] [id number] [place] [address] Sep, 2014 [facility] [place] [facility] [address] [id number] [place] [address] Sep, 2014 [facility] [place] [facility] [address] [id number] [place] [address] Sep, 2014 [facility] [place] [facility] [address] [id number] [place] [address] Sep, 2014 [facility] [place] [facility] [address] [facility] [id number] [place] [address] Sep, 2014 [facility] [place] [facility] [address] [facility] [id number] [place] [address] Sep, 2014 [facility] [place] [facility] [address] [id number] [place] [address] Aug, [facility] [place] [facility] [address] [facility] [id number] [place] [address] Aug, [facility] [place] [facility] [address] [facility] [id number] [place] [address] Jul, [facility] [place] [facility] [address] [id number] [place] [address] Jul, [facility] [place] [facility] [address] [id number] [place] [address] Jul, [facility] [place] [facility] [address] [id number] [place] [address] Jul, [facility] [place] [facility] [address] [id number] [place] [address] Jul, [facility] [place] [facility] [address] [id number] [place] [address] Jul, [facility] [place] [facility] [address] [id number] [place] [address] Jul, [facility] [place] [facility] [address] [id number] [place] [address] Jul, [facility] [place] [facility] [address] [id number] [place] [address] Jul, [facility] [place] [facility] [address] [id number] [place] [address] Jul, [facility] [place] [facility] [address] [id number] [place] [address] Jul, [facility] [place] [facility] [address] [id number] [place] [address] Jul, [facility] [place] [facility] [address] [id number] [place] [address] Jun, [facility] [place] [facility] [address] [id number] [place] [address] Jun, [facility] [place] [facility] [address] [id number] [place] [address] May, [facility] [place] [facility] [address] [id number] [place] [address] May, [facility] [place] [facility] [address] [id number] [place] [address] May, [facility] [place] [facility] [address] [id number] [place] [address] May, [facility] [place] [facility] [address] [id number] [place] [address] May, [facility] [place] [facility] [address] [id number] [place] [address] May, [facility] [place] [facility] [address] [id number] [place] [address] May, [facility] [place] [facility] [address] [id number] [place] [address] May, [facility] [place] [facility] [address] [id number] [place] [address] May, [facility] [place] [facility] [address] [id number] [place] [address] May, [facility] [place] [facility] [address] [id number] [place] [address] May, [facility] [place] [facility] [address] [id number] [place] [address] May, [facility] [place] [facility] [address] [id number] [place] [address] Apr, [facility] [place] [facility] [address] [id number] [place] [address] 30 Apr, 2014 [facility] [place] [facility] [address] [id number] [place] [address] Apr, 2013 [facility] [place] [facility] [address] [id number] [place] [address] Apr, [facility] [place] [facility] [address] [id number] [place] [address] Apr, [facility] [place] [facility] [address] [id number] [place] [address] Apr, [facility] [place] [facility] [address] [id number] [place] [address] Feb, [facility] [place] [facility] [address] [id number] [place] [address] Feb, [facility] [place] [facility] [address] [id number] [place] [address] Feb, [facility] [place] [facility] [address] [id number] [place] [address] Feb, [facility] [place] [facility] [address] [id number] [place] [address] Feb, [facility] [place] [facility] [address] [id number] [place] [address] Feb, [facility] [place] [facility] [address] [id number] [place] [address] Jan, [facility] [place] [facility] [address] [id number] [place] [address] Jan, [facility] [place] [facility] [address] [id number] [place] [address] Jan, [facility] [place] [facility] [address] [id number] [place] [address] Jan, [facility] [place] [facility] [address] [id number] [place] [address] Jan, [facility] [place] [facility] [address] [id number] [place] [address] Jan, [facility] [place] [facility] [address] [id number] [place] [address] Jan, [facility] [place] [facility] [address] [id number] [place] [address] Jan, [facility] [place] [facility] [address] [id number] [place] [address] December, [facility] [place] [facility] [address] [id number] [place] [address] December, [facility] [place] [facility] [address] [id number] [place] [address] December, [facility] [place] [facility] [address] [id number] [place] [address] December, [facility] [place] [facility] [address] [id number] [place] [address] Nov, [facility] [place] [facility] [address] [id number] [place] [address] Nov, [facility] [place] [facility] [address] [id number] [place] [address] Nov, [facility] [place] [facility] [address] [id number] [place] [address] Nov, [facility] [place] [facility] [address] [id number] [place] [address] Nov, [facility] [place] [facility] [address] [id number] [place] [address] Nov, [facility] [place] [facility] [address] [id number] [place] [address] Nov, [facility] [place] [facility] [address] [id number] [place] [address] Nov, [facility] [place] [facility] [address] [id number] [place] [address] Oct, [facility] [place] [facility] [address] [id number] [place] [address] Oct, [facility] [place] [facility] [address] [id number] [place] [address] Sep, [facility] [place] [facility] [address] [id number] [place] [address] Sep, [facility] [place] [facility] [address] [facility] [id number] [place] [id number] Sep, [facility] [place] [facility] [address] [id number] [place] [address] Sep, [facility] [place] [facility] [address] [id number] [place] [address] Sep, [facility] [place] [facility] [address] [id number] [place] [address] Sep, [facility] [place] [facility] [address] [id number] [place] [address] Aug, [facility] [place] [facility] [address] [id number] [place] [address] Aug, [facility] [place] [facility] [address] [id number] [place] [address] Aug, [facility] [place] [facility] [address] [id number] [place] [address] Aug, [facility] [place] [facility] [address] [id number] [place] [address] Jul, [facility] [place] [facility] [address] [id number] [place] [address] Jul, [facility] [place] [facility] [address] [id number] [place] [address] Jul, [facility] [place] [facility] [address] [id number] [place] [address] Jul, [facility] [place] [facility] [address] [id number] [place] [address] Jun, [facility] [place] [facility] [address] [id number] [place] [address] Jun, [facility] [place] [facility] [address] [id number] [place] [address] May, [facility] [place] [facility] [address] [id number] [place] [address] 24 May, 2013 [facility] [place] [facility] [address] [id number] [place] [address] May, [facility] [place] [facility] [address] [id number] [address] 11 May, 2013 [facility] [place] [facility] [address] [id number] [place] [address] 10 May, 2013 [facility] [place] [facility] [address] [id number] [address] 17 Apr, 2013 [facility] [place] [facility] [address] [id number] [address] 10 Apr, 2013 [facility] [place] [facility] [address] [id number] [place] [address] Mar, [facility] [address] [id number] [place] [address] Mar, [facility] [place] [facility] [address] [id number] [place] [address] Mar, [facility] [place] [facility] [address] [id number] [place] [address] Mar, [facility] [place] [facility] [address] [id number] [place] [address] Feb, [facility] [place] [facility] [address] [id number] [place] [address] Feb, [facility] [place] [facility] [address] [id number] [place] [address] Feb, [facility] [place] [facility] [address] [id number] [place] [address] Feb, [facility] [place] [facility] [address] [id number] [place] [address] Feb, [facility] [place] [facility] [address] [id number] [place] [address] Jan, [facility] [place] [facility] [address] [id number] [place] [address] Jan, [facility] [place] [facility] [address] [id number] [place] [address] Jan, [facility] [place] [facility] [address] [id number] [place] [address] Jan, [facility] [place] [facility] [address] [id number] [place] [address] Jan, [facility] [place] [facility] [address] [id number] [place] [address] December, [facility] [place] [facility] [address] [id number] [place] [address] December, [facility] [place] [facility] [address] [id number] [place] [address] 17 Nov, 2012 [facility] [address] [id number] [place] [address] 02 Nov, 2012 [facility] [address] [id number] [place] [address] 19 Oct, 2012 [facility] [address] [id number] [place] [address] Oct, [facility] [address] [id number] [place] [address] 05 Oct, 2012 [facility] [address] [id number] [place] [address] 14 Sep, 2012 [facility] [address] [id number] [place] [address] 24 Aug, 2012 [facility] [address] [id number] [place] [address] 16 Aug, 2012 [facility] [address] [id number] [place] [address] 15 Aug, 2012 [facility] [address] [id number] [place] [address] Aug, [facility] [address] [id number] [place] [address] Jul, [facility] [address] [id number] [place] [address] Jul, [facility] [address] [id number] [place] [address] Jul, [facility] [place] [facility] [address] [id number] [place] [address] Jul, [facility] [address] [id number] [place] [address] Jul, [facility] [address] [id number] [place] [address] Jul, [facility] [place] [facility] [address] [id number] [place] [address] Jul, [facility] [place] [facility] [address] [id number] [place] [address] Jul, [facility] [place] [facility] [address] [id number] [place] [address] Jun, [facility] [place] [facility] [address] [id number] [place] [address] Jun, [facility] [place] [facility] [address] [id number] [place] [address] Jun, [facility] [place] [facility] [address] [id number] [place] [address] Jun, [facility] [place] [facility] [address] [facility] [id number] [place] [address] Jun, [facility] [place] [facility] [address] [id number] [address] Jun, [facility] [place] [facility] [address] [id number] [place] [address] May, [facility] [place] [facility] [address] [facility] [id number] [address] May, [facility] [place] [facility] [address] [id number] [place] [address] May, [facility] [place] [facility] [address] [id number] [address] May, [facility] [place] [facility] [address] [id number] [place] [address] Apr, [facility] [place] [facility] [address] [id number] [place] [address] Apr, [facility] [place] [facility] [address] [facility] [id number] [place] [address] Mar, [facility] [place] [facility] [address] [id number] [place] [address] 28 Jan, 2012 [facility] [place] [facility] [address] [id number] [place] [address] 20 Jan, 2012 [facility] [place] [facility] [address] [id number] [place] [address] 16 Jan, 2012 [facility] [place] [facility] [address] [id number] [place] [address] 15 Jan, 2012 [facility] [place] [facility] [address] [id number] [place] [address] 14 Jan, 2012 [facility] [place] [facility] [address] [id number] [place] [address] 14 Jan, 2012 [facility] [place] [facility] [address] [id number] [place] [address] 07 Jan, 2012 [facility] [place] [facility] [address] [id number] [place] [address] December, [facility] [place] [facility] [address] [id number] [place] [address] December, [facility] [place] [facility] [address] [id number] [place] [address] December, [facility] [place] [facility] [address] [id number] [place] [address] December, [facility] [place] [facility] [address] [id number] [place] [address] 25 Nov, 2011 [facility] [place] [facility] [address] [id number] [place] [address] 05 Nov, 2011 [facility] [place] [facility] [address] [id number] [place] [address] 29 Oct, 2011 [facility] [place] [facility] [address] [id number] [place] [address] 28 Oct, 2011 [facility] [place] [facility] [address] [id number] [place] [address] 15 Oct, 2011 [facility] [place] [facility] [address] [id number] [place] [address] Sep, [facility] [address] [id number] [place] [address] Sep, [facility] [place] [facility] [address] [id number] [place] [address] Sep, [facility] [address] [id number] [place] [address] Aug, [facility] [address] [id number] [place] [address] Aug, [facility] [address] [id number] [place] [address] Aug, [facility] [address] [id number] [place] [address] Aug, [facility] [address] [id number] [place] [address] Aug, [facility] [address] [id number] [place] [address] Aug, [facility] [address] [id number] [place] [address] Aug, [facility] [address] [id number] [place] [address] Jul, [facility] [address] [id number] [place] [address] Jul, [facility] [place] [facility] [address] [id number] [place] [address] Jun, [facility] [place] [facility] [address] [id number] [place] [address] Jun, [facility] [place] [facility] [address] [id number] [place] [address] Jun, [facility] [place] [facility] [address] [id number] [address] 15 Jun, 2011 [facility] [place] [facility] [address] [id number] [place] [address] 14 Jun, 2011 [facility] [place] [facility] [address] [id number] [place] [address] 14 Jun, 2011 [facility] [place] [facility] [address] [id number] [place] [address] Jun, [facility] [place] [facility] [address] [id number] [place] [address] Jun, [facility] [place] [facility] [address] [id number] [place] [address] Jun, [facility] [place] [facility] [address] [id number] [place] [address] Jun, [facility] [place] [facility] [address] [id number] [place] [address] May, [facility] [place] [facility] [address] [id number] [place] [address] May, [facility] [place] [facility] [address] [id number] [place] [address] May, [facility] [place] [facility] [address] [id number] [place] [address] 24 May, 2011 [facility] [place] [facility] [address] [id number] [address] May, [facility] [place] [facility] [address] [id number] [address] May, [facility] [place] [facility] [address] [id number] [place] [address] Feb, [facility] [place] [facility] [address] [id number] [place] [address] December, [facility] [place] [facility] [address] [id number] [place] [address] Jul, [facility] [place] [facility] [id number] [address] 29 Jul, 2010 [facility] [id number] [address] Jul, [facility] [id number] [address] Jul, [facility] [id number] [address] Jun, [facility] [id number] [address] Jul, [facility] [id number] [address] Jul, [facility] [id number] [address] Jul, [facility] [id number] [address] Jul, [facility] [id number] [address] Jul, [facility] [id number] [address] Jul, [facility] [address] [id number] [address] Jan, [facility] [id number] [address] 16 Sep, 2008 [facility] [address] [id number] [address] Sep, IMMUNIZATIONS No Known Immunizations SOCIAL HISTORY Never Assessed REASON FOR VISIT followup Anxiety/ Grief PLAN OF CARE Activity Details Follow Up 2 Weeks Reason: Follow-up VITAL SIGNS MEDICATIONS Unknown Medications RESULTS No Results PROCEDURES Procedure Date Ordered Result Body Site Psychotherapy, patient and family, 45 minutes, established patient Jul 29, 2018 INSTRUCTIONS MEDICATIONS ADMINISTERED No Known Medications [...]
--- OUTSIDE RECORDS SUMMARY | 2019-01-22 20:42 | XMS REPORT ---
Author Author KVNG MERCHANT [facility] Address [address] [place] [address] Care Team Providers Care Dairy Associate Name Role Phone KVNG MERCHANT Unavailable PROBLEMS Type Condition ICD9-CM Code MVE43-QG Code Onset Dates Condition Status SNOMED Code Problem Family history of diabetes mellitus Z83.3 Active 323866026 Problem Hot flashes N95.1 Active 984246936 Problem Excessive and frequent menstruation with irregular cycle N92.1 Active 383515799 Problem Diverticulitis K57.92 Active 086567770 Problem Gastroesophageal reflux disease with esophagitis K21.0 Active 991356971 Problem Mitral valve prolapse I34.1 Active 059790256 Problem Perimenopausal N95.1 Active 156791300114998 Problem Tachycardia R00.0 Active 6263152 Problem Abnormal uterine bleeding (AUB) N93.9 Active 84902033297427 Problem History of diverticulitis Z87.19 Active 982083016929368 Problem History of colon polyps Z86.010 Active 895123900 Problem Generalized anxiety disorder F41.1 Active 837646269 Problem Dense breast tissue R92.2 Active 830962007 Problem Hypertension I10 Active 85965343 Problem History of ovarian cyst Z87.42 Active 38985333 ALLERGIES No Information ENCOUNTERS Encounter Location Date Diagnosis [facility] [place] [id number] [address] Jul, [facility] [place] [id number], [place] [address] Jul, [facility] [place] [address] [address] Jul, [facility] [place] [id number] [address] Jun, [facility] [place] [address] [place] [address] Jun, Generalized anxiety disorder F41.1 and Bereavement Z63.4 [facility] [address] [place] [id number] [place] [address] Jun, Dental examination Z01.20 [facility] [place] [address] [place] [address] May, Generalized anxiety disorder F41.1 and Bereavement Z63.4 [address] [id number] [place] [address] May, Encounter for immunization Z23 [place] [id number] [place] [address] May, Generalized anxiety disorder F41.1 and Bereavement Z63.4 [place] [id number] [place] [address] May, [facility] [place] [address] [place] [address] 24 Apr, 2018 Generalized anxiety disorder F41.1 and Bereavement Z63.4 [facility] [place] [id number] [place] [address] 17 Apr, 2018 [facility] [place] [id number] [place] [address] 13 Apr, 2018 Diverticulitis K57.92 [facility] [place] [address] [place] [address] Apr, Generalized anxiety disorder F41.1 and Bereavement Z63.4 [facility] [id number] [place] [address] Mar, [facility] [id number] [place] [address] Mar, Diverticulitis K57.92 [facility] [place] [id number] [place] [address] Mar, Generalized anxiety disorder F41.1 and Bereavement Z63.4 [facility] [place] [id number] [place] [address] Mar, Hypertension I10 [facility] [place] [id number] [place] [address] Mar, Generalized anxiety disorder F41.1 and Bereavement Z63.4 [facility] [place] [id number] [place] [address] Feb, Generalized anxiety disorder F41.1 and Bereavement Z63.4 [facility] [place] [id number] [place] [address] Feb, [facility] [place] [id number] [place] [address] Feb, Generalized anxiety disorder F41.1 and Bereavement Z63.4 [facility] [place] [id number] [place] [address] Feb, Generalized anxiety disorder F41.1 and Bereavement Z63.4 [facility] [place] [id number] [place] [address] Jan, Hypertension I10 and Acute non-recurrent maxillary sinusitis J01.00 [facility] [place] [id number] [place] [address] December, [facility] [place] [id number] [place] [address] December, Hypertension I10 [facility] [place] [address], [place] [address] December, Generalized anxiety disorder F41.1 [facility] [address] [id number], [place] [address] Oct, Encounter for dental examination Z01.20 [facility] [address] [id number], [place] [address] Oct, Encounter for dental examination Z01.20 [facility] [address] [id number], [place] [address] Oct, Dental examination Z01.20 [facility] [place] [address], [place] [address] Oct, Generalized anxiety disorder F41.1 [facility] [address] [id number], [place] [address] Aug, Dental examination Z01.20 [facility] [place] [id number] [place] [address] Aug, Generalized anxiety disorder F41.1 [facility] [place] [id number] [place] [address] Aug, [facility] [id number] [place] [address] Aug, Encounter for dental examination Z01.20 [facility] [place] [address] [place] [address] Aug, Subacute maxillary sinusitis J01.00 [facility] [id number], [place] [address] Jul, Dental examination Z01.20 [facility] [place] [address], [place] [address] Jul, Generalized anxiety disorder F41.1 [facility] [place] [id number] [place] [address] Jul, Diverticulitis K57.92 [facility] [place] [id number] [place] [address] Jun, Encounter for immunization Z23 [facility] [address] [id number], [place] [address] Jun, Dental examination Z01.20 [facility] [place] [id number] [place] [address] Jun, Generalized anxiety disorder F41.1 [facility] [address] [id number], [place] [address] Jun, Dental examination Z01.20 [facility] [place] [address] [id number], [place] [address] May, [facility] [address] [id number] [id number] May, Dental examination Z01.20 [facility] [id number] [place] [id number] May, Dental examination Z01.20 [facility] [address] [id number], [place] [address] May, Dental examination Z01.20 [facility] [place] [id number] [place] [address] May, [facility] [place] [id number] [place] [address] May, Generalized anxiety disorder F41.1 [facility] [place] [id number] [place] [address] May, Localized edema R60.0 ; Yeast vaginitis B37.3 and Gastroesophageal reflux disease with esophagitis K21.0 [facility] [address] [address] Apr, Dental examination Z01.20 [facility] [address] [id number], [place] [address] Apr, Dental examination Z01.20 [facility] [id number] [place] [address] 05 Apr, 2017 Dental examination Z01.20 [facility] [place] [address] [place] [address] Mar, Dyspepsia R10.13 [facility] [place] [address] [id number], [place] [address] Mar, Generalized anxiety disorder F41.1 [facility] [address] [id number], [place] [address] Mar, Encounter for dental examination Z01.20 [facility] [address] [id number][place] [id number] Mar, [facility] [id number] [place] [id number] Mar, Dental examination Z01.20 [facility] [place] [id number] [place] [address] Feb, Hypertension I10 and Tachycardia R00.0 [facility] [address] [id number], [place] [address] Feb, [facility] [place] [id number] [place] [address] Feb, Generalized anxiety disorder F41.1 [facility] [id number] [place] [id number] Feb, Dental examination Z01.20 [facility] [place] [id number] [place] [address] Jan, Generalized anxiety disorder F41.1 [facility] [place] [id number], [place] [address] December, Generalized anxiety disorder F41.1 [facility] [address] [place] [id number] December, Encounter for dental examination Z01.20 [facility] [place] [id number] [place] [address] Nov, [facility] [place] [id number] [place] [address] Nov, [facility] [place] [id number], [place] [address] Nov, Generalized anxiety disorder F41.1 [facility] [place] [address] [place] [address] 30 Oct, 2016 [facility] [id number] [place] [id number] Oct, Dental examination Z01.20 [facility] [place] [id number] [place] [address] Oct, Vaginal dryness N89.8 [facility] [place] [id number] [place] [address] Oct, Pseudoseizures F44.5 [place] [id number] [place] [address] Oct, Generalized anxiety disorder F41.1 [place] [id number] [place] [address] 28 Sep, 2016 Abnormal uterine bleeding (AUB) N93.9 ; Vaginal dryness N89.8 and Screening breast examination Z12.39 [facility] [place] [id number] [place] [address] Sep, Dental examination Z01.20 [place] [id number] [place] [address] 20 Sep, 2016 Generalized anxiety disorder F41.1 [facility] [place] [address] [place] [address] 06 Sep, 2016 Unspecified ovarian cyst, right side N83.201 ; Unspecified ovarian cyst, left side N83.202 ; Yeast infection of the vagina B37.3 ; Mitral valve prolapse I34.1 and Hypertension I10 [facility] [place] [id number] [place] [address] Aug, Generalized anxiety disorder F41.1 [facility] [place] [id number] [place] [address] Jul, [facility] [place] [id number] [place] [address] Jul, Generalized anxiety disorder F41.1 [facility] [place] [id number] [place] [address] Jun, Generalized anxiety disorder F41.1 [facility] [place] [id number] [place] [address] 28 May, 2016 Encounter for immunization Z23 [facility] [place] [address] [address] 17 May, 2016 Generalized anxiety disorder F41.1 and Depressive disorder, not elsewhere classified F32.9 [facility] [place] [id number] [place] [address] 28 Apr, 2016 Hypertension I10 [facility] [place] [id number] [place] [address] 22 Apr, 2016 Cervicalgia M54.2 [facility] [id number] [place] [address] 12 Apr, 2016 Cervicalgia M54.2 [facility] [place] [id number] [place] [address] 09 Mar, 2016 Generalized anxiety disorder F41.1 and Depressive disorder, not elsewhere classified F32.9 [facility] [id number] [place] [id number] Feb, Visit for dental examination Z01.20 [facility] [place] [id number] [place] [address] 11 Feb, 2016 Pseudoseizures F44.5 ; Migraine without status migrainosus, not intractable, unspecified migraine type G43.909 and Essential hypertension I10 [facility] [id number] [place] [address] [id number] Feb, Dental examination Z01.20 [facility] [place] [id number] [place] [address] 05 Feb, 2016 Generalized anxiety disorder F41.1 and Depressive disorder, not elsewhere classified F32.9 [facility] [place] [address] [place] [address] Jan, Tachycardia R00.0 [place] [address] [address] December, Eustachian tube dysfunction, bilateral H69.83 [place] [id number] [place] [address] December, Generalized anxiety disorder F41.1 and Depressive disorder, not elsewhere classified F32.9 [facility] [place] [address] [address] Nov, [place] [address] [address] Nov, [place] [id number] [place] [address] Nov, Hypertension I10 ; Onychomycosis B35.1 ; [...] and Complex cyst of left ovary N83.29 [place] [id number] [place] [address] 14 Nov, 2015 Sinusitis J32.9 [place] [id number] [place] [address] Oct, Complex cyst of left ovary N83.29 [place] [address] [address] Oct, Onychomycosis B35.1 [facility] [address] [place] [id number] Oct, Dental examination Z01.20 [place] [id number] [place] [address] 09 Oct, 2016 Well woman exam Z01.419 ; [...] R92.2 and History of colon polyps Z86.010 [place] [address] [address] 03 Oct, 2015 Generalized anxiety disorder F41.1 and Depressive disorder, not elsewhere classified F32.9 [place] [address] [address] Sep, Hypertension I10 and Onychomycosis B35.1 [place] [address] [address] 16 Sep, 2015 Skin tags, multiple acquired L91.8 [place] [address] [address] Aug, [place] [id number] [place] [address] Aug, [place] [id number] [place] [address] Aug, [place] [address] [address] Aug, Generalized anxiety disorder F41.1 and Depressive disorder, not elsewhere classified F32.9 [place] [address] [address] Jul, Skin lesion L98.9 [place] [address] [address] Jun, Generalized anxiety disorder F41.1 and Depressive disorder, not elsewhere classified F32.9 [facility] [place] [address] [place] [address] Jun, [facility] [place] [id number] [place] [address] Jun, Generalized anxiety disorder F41.1 [facility] [place] [id number] [place] [address] May, Encounter for immunization Z23 and Right shoulder pain M25.511 [facility] [place] [id number] [place] [address] Apr, [facility] [place] [id number] [place] [address] Apr, Generalized anxiety disorder 300.02 and Depressive disorder, not elsewhere classified 311 [facility] [id number] [place] [address] [id number] Mar, Dental examination V72.2 [facility] [place] [id number] [place] [address] Mar, Generalized anxiety disorder 300.02 and Depressive disorder, not elsewhere classified 311 [facility] [place] [id number] [place] [address] Mar, Depression, major, recurrent, 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.35 and 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 [facility] [place] [id number] [place] [address] Feb, Generalized anxiety disorder 300.02 and Depressive disorder, not elsewhere classified 311 [facility] [id number] [place] [address] [id number] Feb, Dental examination V72.2 [facility] [place] [id number] [place] [address] Jan, Generalized anxiety disorder 300.02 and Depressive disorder, not elsewhere classified 311 [facility] [place] [id number] [place] [address] Jan, [facility] [place] [address], [place] [address] December, Generalized anxiety disorder 300.02 and Depressive disorder, not elsewhere classified 311 [facility] [place] [address], [place] [address] 08 Dec, 2014 Major depressive disorder, recurrent, unspecified 296.30 and Panic disorder with agoraphobia 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 [facility] [place] [address], [place] [address] 14 Nov, 2014 [facility] [place] [id number] [address] Nov, [facility] [place] [id number] [address] Oct, [facility] [place] [id number] [address] Oct, [facility] [place] [id number] [address] Oct, [facility] [place] [id number] [place] [address] Oct, [facility] [place] [id number] [place] [address] Sep, [facility] [place] [id number] [address] Sep, [facility] [place] [id number] [address] Sep, [facility] [place] [id number] [address] Sep, [facility] [place] [id number] [place] [address] Sep, [facility] [place] [id number] [place] [address] Sep, [facility] [place] [facility] [address] [id number] [place] [address] Sep, 2014 [facility] [place] [facility] [address] [id number] [place] [address] Sep, 2014 [facility] [place] [facility] [address] [id number] [place] [address] Sep, 2014 [facility] [place] [facility] [address] [id number] [place] [address] Sep, 2014 [facility] [place] [facility] [address] [id number] [place] [address] Aug, [facility] [place] [facility] [address] [id number] [place] [address] Aug, [facility] [place] [facility] [address] [id number] [place] [address] Jul, [facility] [place] [facility] [address] [id number] [place] [address] Jul, [facility] [place] [facility] [address] [id number] [place] [address] 18 Jul, 2014 [facility] [place] [facility] [address] [id number] [place] [address] 18 Jul, 2014 [facility] [place] [facility] [address] [id number] [place] [address] Jul, [facility] [place] [facility] [address] [id number] [address] Jul, [facility] [place] [facility] [address] [id number] [place] [address] 05 Jul, 2014 [facility] [place] [facility] [address] [id number] [place] [address] 05 Jul, 2014 [facility] [place] [facility] [address] [facility] [id number] [place] [address] Jul, [facility] [place] [facility] [address] [id number] [place] [address] Jul, [facility] [place] [facility] [address] [id number] [place] [address] Jul, [facility] [place] [facility] [address] [id number] [place] [address] Jul, [facility] [place] [facility] [address] [id number] [place] [address] Jun, [facility] [place] [facility] [address] [id number] [place] [address] Jun, [facility] [place] [facility] [address] [id number] [place] [address] May, [facility] [place] [facility] [address] [id number] [place] [address] May, [facility] [place] [facility] [address] [id number] [place] [address] May, [facility] [place] [facility] [address] [id number] [place] [address] May, [facility] [place] [facility] [address] [id number] [place] [address] May, [facility] [place] [facility] [address] [facility] [id number] [place] [address] May, [facility] [place] [facility] [address] [id number] [place] [address] May, [facility] [place] [facility] [address] [id number], [place] [address] May, [facility] [place] [facility] [address] [id number] [place] [address] May, [facility] [place] [facility] [address] [id number] [place] [address] May, [facility] [place] [facility] [address] [id number], [place] [address] May, [facility] [place] [facility] [address] [id number] [place] [address] May, [facility] [place] [facility] [address] [id number] [place] [address] Apr, [facility] [place] [facility] [address] [id number] [place] [address] Apr, [facility] [place] [facility] [address] [id number] [place] [address] Apr, [facility] [place] [facility] [address] [id number] [place] [address] Apr, [facility] [place] [facility] [address] [id number] [place] [address] Apr, [facility] [place] [facility] [address] [id number] [place] [address] Apr, [facility] [place] [facility] [address] [id number] [place] [address] Feb, [facility] [place] [facility] [address] [id number] [place] [address] Feb, [facility] [place] [facility] [address] [id number] [place] [address] Feb, [facility] [place] [facility] [address] [id number] [place] [address] Feb, [facility] [place] [facility] [address] [id number] [place] [address] Feb, [facility] [place] [facility] [address] [id number] [place] [address] Feb, [facility] [place] [facility] [address] [id number] [place] [address] Jan, [facility] [place] [facility] [address] [id number] [place] [address] Jan, [facility] [place] [facility] [address] [id number] [place] [address] Jan, [facility] [place] [facility] [address] [id number] [place] [address] Jan, [facility] [place] [facility] [address] [id number] [place] [address] Jan, [facility] [place] [facility] [address] [id number] [place] [address] Jan, [facility] [place] [facility] [address] [id number] [place] [address] Jan, [facility] [place] [facility] [address] [id number] [place] [address] Jan, [facility] [place] [facility] [address] [id number] [place] [address] December, [facility] [place] [facility] [address] [id number] [place] [address] December, [facility] [place] [facility] [address] [id number] [place] [address] December, [facility] [place] [facility] [address] [id number] [place] [address] December, [facility] [place] [facility] [address] [id number] [place] [address] Nov, [facility] [place] [facility] [address] [id number] [place] [address] Nov, [facility] [place] [facility] [address] [id number] [place] [address] Nov, [facility] [place] [facility] [address] [id number] [place] [address] Nov, [facility] [place] [facility] [address] [id number] [place] [address] Nov, [facility] [place] [facility] [address] [id number] [place] [address] Nov, [facility] [place] [facility] [address] [id number] [place] [address] Nov, [facility] [place] [facility] [address] [id number] [place] [address] Nov, [facility] [place] [facility] [address] [id number] [place] [address] Oct, [facility] [place] [facility] [address] [id number] [place] [address] Oct, [facility] [place] [facility] [address] [id number] [place] [address] Sep, [facility] [place] [facility] [address] [id number] [place] [address] Sep, [facility] [place] [facility] [address] [id number] [place] [id number] Sep, [facility] [place] [facility] [address] [id number] [place] [address] Sep, [facility] [place] [facility] [address] [id number] [place] [address] Sep, [facility] [place] [facility] [address] [id number] [place] [address] Sep, [facility] [place] [facility] [address] [id number] [place] [address] Aug, [facility] [place] [facility] [address] [id number] [place] [address] Aug, [facility] [place] [facility] [address] [id number] [place] [address] Aug, [facility] [place] [facility] [address] [id number] [place] [address] Aug, [facility] [place] [facility] [address] [id number] [place] [address] Jul, [facility] [place] [facility] [address] [id number] [place] [address] Jul, [facility] [place] [facility] [address] [id number] [place] [address] Jul, [facility] [place] [facility] [address] [id number] [place] [address] Jul, [facility] [place] [facility] [address] [id number] [place] [address] Jun, [facility] [place] [facility] [address] [id number] [place] [address] Jun, [facility] [place] [facility] [address] [id number] [place] [address] May, [facility] [place] [facility] [address] [id number] [place] [address] May, [facility] [place] [facility] [address] [id number] [place] [address] May, [facility] [place] [facility] [address] [id number] [place] [address] May, [facility] [place] [facility] [address] [id number] [place] [address] May, [facility] [place] [facility] [address] [id number] [place] [address] 17 Apr, 2013 [facility] [place] [facility] [address] [id number], [place] [address] Apr, [facility] [place] [facility] [address] [id number], [place] [address] 29 Mar, 2013 [facility] [place] [facility] [address] [id number] [place] [address] Mar, [facility] [place] [facility] [address] [id number], [place] [address] 15 Mar, 2013 [facility] [place] [facility] [address] [id number] [place] [address] Mar, [facility] [place] [facility] [address] [id number] [place] [address] 17 Feb, 2013 [facility] [address] [id number] [place] [address] 17 Feb, 2013 [facility] [place] [facility] [address] [id number] [place] [address] 16 Feb, 2013 [facility] [address] [id number] [place] [address] Feb, [facility] [place] [facility] [address] [id number] [place] [address] Feb, [facility] [address] [id number] [place] [address] Jan, [facility] [address] [id number] [place] [address] Jan, [facility] [address] [id number] [place] [address] Jan, [facility] [address] [id number] [place] [address] Jan, [facility] [place] [facility] [address] [id number] [place] [address] Jan, [facility] [address] [id number] [place] [address] December, [facility] [place] [facility] [address] [id number] [place] [address] December, [facility] [place] [facility] [address] [id number] [place] [address] Nov, [facility] [place] [facility] [address] [id number] [place] [address] Nov, [facility] [place] [facility] [address] [id number] [place] [address] Oct, [facility] [place] [facility] [address] [id number] [place] [address] Oct, [facility] [place] [facility] [address] [id number] [place] [address] 05 Oct, 2012 [facility] [address] [id number] [place] [address] 14 Sep, 2012 [facility] [address] [id number] [place] [address] Aug, [facility] [address] [id number] [place] [address] Aug, [facility] [address] [id number] [place] [address] Aug, [facility] [address] [id number] [place] [address] Aug, [facility] [address] [id number] [place] [address] Jul, [facility] [address] [id number] [place] [address] Jul, [facility] [address] [id number] [place] [address] Jul, [facility] [address] [id number] [place] [address] Jul, [facility] [address] [id number] [place] [address] Jul, [facility] [address] [id number] [place] [address] Jul, [facility] [address] [id number] [place] [address] Jul, [facility] [place] [facility] [address] [id number] [place] [address] Jul, [facility] [address] [id number] [place] [address] Jun, [facility] [address] [id number], [place] [address] Jun, [facility] [place] [facility] [address] [id number] [place] [address] Jun, [facility] [place] [facility] [address] [id number] [place] [address] Jun, [facility] [place] [facility] [address] [id number] [place] [address] Jun, [facility] [place] [facility] [address] [id number] [place] [address] Jun, [facility] [place] [facility] [address] [id number] [place] [address] May, [facility] [place] [facility] [address] [id number] [place] [address] May, [facility] [place] [facility] [address] [id number] [place] [address] May, [facility] [place] [facility] [address] [id number] [place] [address] May, [facility] [place] [facility] [address] [id number] [place] [address] Apr, [facility] [place] [facility] [address] [id number] [place] [address] Apr, [facility] [place] [facility] [address] [id number], [place] [address] Mar, [facility] [place] [facility] [address] [id number], [place] [address] Jan, [facility] [place] [facility] [address] [id number] [place] [address] Jan, [facility] [place] [facility] [address] [id number] [place] [address] 16 Jan, 2012 [facility] [place] [facility] [address] [id number] [place] [address] 15 Jan, 2012 [facility] [place] [facility] [address] [id number] [place] [address] 14 Jan, 2012 [facility] [address] [id number] [place] [address] 14 Jan, 2012 [facility] [place] [facility] [address] [id number] [place] [address] 07 Jan, 2012 [facility] [address] [id number] [place] [address] December, [facility] [address] [id number] [place] [address] December, [facility] [address] [id number] [place] [address] December, [facility] [address] [id number] [place] [address] December, [facility] [address] [id number] [place] [address] Nov, [facility] [address] [id number] [place] [address] 05 Nov, 2011 [facility] [address] [id number] [place] [address] 29 Oct, 2011 [facility] [address] [id number] [place] [address] Oct, [facility] [place] [facility] [address] [id number] [place] [address] 15 Oct, 2011 [facility] [address] [id number] [place] [address] Sep, [facility] [place] [facility] [address] [id number] [place] [address] Sep, [facility] [place] [facility] [address] [id number] [place] [address] Sep, [facility] [place] [facility] [address] [id number] [place] [address] Aug, [facility] [place] [facility] [address] [id number] [place] [address] Aug, [facility] [place] [facility] [address] [id number] [place] [address] Aug, [facility] [place] [facility] [address] [id number] [place] [address] Aug, [facility] [place] [facility] [address] [id number] [place] [address] Aug, [facility] [place] [facility] [address] [id number] [place] [address] Aug, [facility] [place] [facility] [address] [id number] [place] [address] Aug, [facility] [place] [facility] [address] [id number] [place] [address] Jul, [facility] [place] [facility] [address] [id number] [place] [address] Jul, [facility] [place] [facility] [address] [id number] [place] [address] 30 Jun, 2011 [facility] [place] [facility] [address] [id number] [place] [address] 28 Jun, 2011 [facility] [place] [facility] [address] [id number], [place] [address] 17 Jun, 2011 [facility] [place] [facility] [address] [id number], [place] [address] 15 Jun, 2011 [facility] [place] [facility] [address] [id number] [place] [address] 14 Jun, 2011 [facility] [place] [facility] [address] [id number], [place] [address] 14 Jun, 2011 [facility] [place] [facility] [address] [id number] [place] [address] 07 Jun, 2011 [facility] [place] [facility] [address] [id number] [place] [address] Jun, [facility] [place] [facility] [address] [id number] [place] [address] Jun, [facility] [place] [facility] [address] [id number] [place] [address] Jun, [facility] [place] [facility] [address] [id number] [place] [address] May, [facility] [place] [facility] [address] [id number] [place] [address] May, [facility] [place] [facility] [address] [id number] [place] [address] May, [facility] [place] [facility] [address] [id number] [place] [address] 24 May, 2011 [facility] [place] [facility] [address] [id number] [place] [address] May, [facility] [place] [facility] [address] [id number] [place] [address] May, [facility] [place] [facility] [address] [id number] [place] [address] Feb, [facility] [place] [facility] [address] [facility] [id number] [place] [address] December, [facility] [place] [facility] [address] [id number] [place] [address] Jul, [facility] [place] [facility] [address] [id number] [place] [address] Jul, [facility] [place] [facility] [address] [id number] [place] [address] Jul, [facility] [place] [facility] [address] [id number] [place] [address] Jul, [facility] [place] [facility] [address] [id number] [place] [address] Jun, [facility] [place] [id number] [address] Jul, [facility] [place] [id number], [place] [address] Jul, [facility] [place] [id number] [place] [address] Jul, [facility] [place] [id number] [address] Jul, [facility] [place] [id number] [place] [address] Jul, [facility] [place] [id number] [place] [address] Jul, [facility] [place] [id number] [place] [address] Jan, [facility] [place] [id number] [place] [address] Sep, [facility] [place] [id number] [place] [address] Sep, IMMUNIZATIONS No Known Immunizations SOCIAL HISTORY Never Assessed REASON FOR VISIT followup Anxiety/ Grief PLAN OF CARE Activity Details Follow Up 2 Weeks Reason: Follow-up VITAL SIGNS MEDICATIONS Unknown Medications RESULTS No Results PROCEDURES Procedure Date Ordered Result Body Site Psychotherapy, patient &/family, 45 minutes, established patient Jun 30, 2018 INSTRUCTIONS MEDICATIONS ADMINISTERED No Known Medications [...]
--- OUTSIDE RECORDS SUMMARY | 2019-01-22 20:42 | XMS REPORT ---
Author Author KVNG MERCHANT [facility] Address [address] [place] [address] Care Team Providers Care Financial Controller Name Role Phone KVNG MERCHANT Unavailable PROBLEMS Type Condition ICD9-CM Code GSF01-QL Code Onset Dates Condition Status SNOMED Code Problem Family history of diabetes mellitus Z83.3 Active 807405454 Problem Hot flashes N95.1 Active 053907734 Problem Excessive and frequent menstruation with irregular cycle N92.1 Active 068135822 Problem Diverticulitis K57.92 Active 312050024 Problem Gastroesophageal reflux disease with esophagitis K21.0 Active 607539090 Problem Mitral valve prolapse I34.1 Active 654189857 Problem Perimenopausal N95.1 Active 129845546612660 Problem Tachycardia R00.0 Active 7590675 Problem Abnormal uterine bleeding (AUB) N93.9 Active 97412739579666 Problem History of diverticulitis Z87.19 Active 401945220121797 Problem History of colon polyps Z86.010 Active 784123301 Problem Generalized anxiety disorder F41.1 Active 413442939 Problem Dense breast tissue R92.2 Active 567072379 Problem Hypertension I10 Active 92800650 Problem History of ovarian cyst Z87.42 Active 34440983 ALLERGIES No Information ENCOUNTERS Encounter Location Date Diagnosis [facility] [address] [facility] [id number] [address] Aug, [facility] [id number], [place] [address] Jul, [facility] [address], [place] [address] Jul, [facility] [address] [id number], [place] [address] Jul, [facility] [address] [place] [address] Jun, Generalized anxiety disorder F41.1 and Bereavement Z63.4 [facility] [id number] [place] [address] Jun, Generalized anxiety disorder F41.1 and Bereavement Z63.4 [facility] [address] [place] [id number] [place] [address] Jun, Dental examination Z01.20 [facility] [id number] [place] [address] May, Generalized anxiety disorder F41.1 and Bereavement Z63.4 [facility] [id number] [place] [address] May, Encounter for immunization Z23 [facility] [id number] [place] [address] May, Generalized anxiety disorder F41.1 and Bereavement Z63.4 [facility] [id number] [place] [address] May, [facility] [id number] [place] [address] 24 Apr, 2018 Generalized anxiety disorder F41.1 and Bereavement Z63.4 [facility] [id number] [place] [address] 17 Apr, 2018 [facility] [id number] [place] [address] 13 Apr, 2018 Diverticulitis K57.92 [facility] [id number] [place] [address] 10 Apr, 2018 Generalized anxiety disorder F41.[address] [facility] [id number] [place] [address] Mar, [facility] [id number] [place] [address] Mar, Diverticulitis K57.92 [facility] [address] [place] [address] Mar, Generalized anxiety disorder F41.1 and Bereavement Z63.4 [facility] [address] [place] [address] Mar, Hypertension I10 [facility] [id number] [place] [address] Mar, Generalized anxiety disorder F41.1 and Bereavement Z63.4 [facility] [id number] [place] [address] Feb, Generalized anxiety disorder F41.1 and Bereavement Z63.4 [facility] [id number] [place] [address] Feb, [facility] [id number] [place] [address] Feb, Generalized anxiety disorder F41.1 and Bereavement Z63.4 [facility] [id number] [place] [address] Feb, Generalized anxiety disorder F41.1 and Bereavement Z63.4 [facility] [address] [place] [address] Jan, Hypertension I10 and Acute non-recurrent maxillary sinusitis J01.00 [facility] [address], [place] [address] December, [facility] [id number] [place] [address] December, Hypertension I10 [facility] [address] [place] [address] December, Generalized anxiety disorder F41.1 [facility] [address] [place] [id number] [place] [address] 16 Oct, 2017 Encounter for dental examination Z01.20 [facility] [address] [id number], [place] [address] 06 Oct, 2017 Encounter for dental examination Z01.20 [facility] [address] [id number], [place] [address] 02 Oct, 2017 Dental examination Z01.20 [facility] [id number] [place] [address] Oct, Generalized anxiety disorder F41.1 [facility] [id number], [place] [address] Aug, Dental examination Z01.20 [facility] [id number] [place] [address] Aug, Generalized anxiety disorder F41.1 [facility] [id number] [place] [address] Aug, [facility] [id number], [place] [address] Aug, Encounter for dental examination Z01.20 [facility] [id number] [place] [address] Aug, Subacute maxillary sinusitis J01.00 [facility] [id number], [place] [address] Jul, Dental examination Z01.20 [facility] [address] [place] [address] Jul, Generalized anxiety disorder F41.1 [facility] [id number] [place] [address] Jul, Diverticulitis K57.92 [facility] [id number] [place] [address] Jun, Encounter for immunization Z23 [facility] [address] [id number], [place] [address] Jun, Dental examination Z01.20 [facility] [id number] [place] [address] 14 Jun, 2017 Generalized anxiety disorder F41.1 [facility] [address] [id number], [place] [address] 07 Jun, 2017 Dental examination Z01.20 [facility] [id number] [place] [address] May, [facility] [id number] [place] [address] [id number] May, Dental examination Z01.20 [facility] [id number] [place] [id number] May, Dental examination Z01.20 [facility] [id number] [place] [address] May, Dental examination Z01.20 [facility] [id number] [place] [address] May, [facility] [id number] [place] [address] May, Generalized anxiety disorder F41.1 [facility] [id number] [place] [address] 05 May, 2017 Localized edema R60.0 ; Yeast vaginitis B37.3 and Gastroesophageal reflux disease with esophagitis K21.0 [facility] [address] [id number] [id number] Apr, Dental examination Z01.20 [facility] [id number] [place] [address] 21 Apr, 2017 Dental examination Z01.20 [facility] [address] [id number], [place] [address] 05 Apr, 2017 Dental examination Z01.20 [facility] [address], [place] [address] 15 Mar, 2017 Dyspepsia R10.13 [facility] [id number] [place] [address] Mar, Generalized anxiety disorder F41.1 [facility] [address] [id number], [place] [address] Mar, Encounter for dental examination Z01.20 [facility] [id number] [place] [address] [id number] Mar, [facility] [id number] [place] [address] [id number] Mar, Dental examination Z01.20 [facility] [id number] [place] [address] Feb, Hypertension I10 and Tachycardia R00.0 [facility] [address] [id number], [place] [address] Feb, [facility] [id number] [place] [address] Feb, Generalized anxiety disorder F41.1 [facility] [address] [place] [id number] Feb, Dental examination Z01.20 [facility] [address] [place] [address] Jan, Generalized anxiety disorder F41.1 [facility] [address], [place] [address] December, Generalized anxiety disorder F41.1 [facility] [id number] [place] [address] [phone] December, Encounter for dental examination Z01.20 [facility] [id number] [place] [address] Nov, [facility] [id number] [place] [address] Nov, [facility] [address] [place] [address] Nov, Generalized anxiety disorder F41.1 [facility] [address] [place] [address] Oct, [facility] [address] [place] [address] [id number] Oct, Dental examination Z01.20 [facility] [id number] [place] [address] Oct, Vaginal dryness N89.8 [address] [address] [address] Oct, Pseudoseizures F44.5 [place] [id number] [place] [address] Oct, Generalized anxiety disorder F41.1 [place] [id number] [place] [address] Sep, Abnormal uterine bleeding (AUB) N93.9 ; Vaginal dryness N89.8 and Screening breast examination Z12.39 [place] [id number] [place] [address] Sep, Dental examination Z01.20 [place] [id number] [place] [address] Sep, Generalized anxiety disorder F41.1 [place] [id number] [place] [address] 06 Sep, 2016 Unspecified ovarian cyst, right side N83.201 ; Unspecified ovarian cyst, left side N83.202 ; Yeast infection of the vagina B37.3 ; Mitral valve prolapse I34.1 and Hypertension I10 [place] [id number] [place] [address] Aug, Generalized anxiety disorder F41.1 [place] [address] [place] [address] 28 Jul, 2016 [facility] [id number] [place] [address] Jul, Generalized anxiety disorder F41.1 [facility] [id number] [place] [address] 15 Jun, 2016 Generalized anxiety disorder F41.1 [facility] [id number] [place] [address] 28 May, 2016 Encounter for immunization Z23 [facility] [address] [address] 17 May, 2016 Generalized anxiety disorder F41.1 and Depressive disorder, not elsewhere classified F32.9 [facility] [id number] [place] [address] 28 Apr, 2016 Hypertension I10 [facility] [address] [address] 22 Apr, 2016 Cervicalgia M54.2 [facility] [id number] [place] [address] 12 Apr, 2016 Cervicalgia M54.2 [facility] [id number] [place] [address] 09 Mar, 2016 Generalized anxiety disorder F41.1 and Depressive disorder, not elsewhere classified F32.9 [facility] [id number] [place] [id number] 14 Feb, 2016 Visit for dental examination Z01.20 [facility] [id number] [place] [address] 11 Feb, 2016 Pseudoseizures F44.5 ; Migraine without status migrainosus, not intractable, unspecified migraine type G43.909 and Essential hypertension I10 [facility] [id number] [place] [address] [id number] 06 Feb, 2016 Dental examination Z01.20 [facility] [address] [place] [address] Feb, Generalized anxiety disorder F41.1 and Depressive disorder, not elsewhere classified F32.9 [place] [id number] [place] [address] Jan, Tachycardia R00.0 [place] [id number] [place] [address] December, Eustachian tube dysfunction, bilateral H69.83 [place] [id number] [place] [address] December, Generalized anxiety disorder F41.1 and Depressive disorder, not elsewhere classified F32.9 [place] [id number] [place] [address] Nov, [place] [id number] [place] [address] Nov, [place] [id number] [place] [address] Nov, Hypertension I10 ; Onychomycosis B35.1 ; [...] and Complex cyst of left ovary N83.29 [place] [id number] [place] [address] 14 Nov, 2015 Sinusitis J32.9 [place] [id number] [place] [address] Oct, Complex cyst of left ovary N83.29 [place] [id number] [place] [address] Oct, Onychomycosis B35.1 [facility] [address] [id number] [id number] 17 Oct, 2015 Dental examination Z01.20 [place] [id number] [place] [address] 09 Oct, 2015 Well woman exam Z01.419 [...] R92.2 and History of colon polyps Z86.010 [place] [id number] [place] [address] Oct, Generalized anxiety disorder F41.1 and Depressive disorder, not elsewhere classified F32.9 [place] [id number] [place] [address] Sep, Hypertension I10 and Onychomycosis B35.1 [place] [id number] [place] [address] 16 Sep, 2015 Skin tags, multiple acquired L91.8 [place] [id number] [place] [address] Aug, [place] [id number] [place] [address] Aug, [place] [address] [place] [address] Aug, [place] [address] [place] [address] Aug, Generalized anxiety disorder F41.1 and Depressive disorder, not elsewhere classified F32.9 [place] [address] [address] Jul, Skin lesion L98.9 [facility] [id number] [place] [address] Jun, Generalized anxiety disorder F41.1 and Depressive disorder, not elsewhere classified F32.9 [facility] [id number] [place] [address] Jun, [facility] [address] [address] Jun, Generalized anxiety disorder F41.1 [facility] [id number] [place] [address] May, Encounter for immunization Z23 and Right shoulder pain M25.511 [facility] [id number] [place] [address] Apr, [facility] [address] [address] Apr, Generalized anxiety disorder 300.02 and Depressive disorder, not elsewhere classified 311 [facility] [id number] [place] [address] [id number] Mar, Dental examination V72.2 [facility] [id number] [place] [address] Mar, Generalized anxiety disorder 300.02 and Depressive disorder, not elsewhere classified 311 [facility] [id number] [place] [address] Mar, Depression, major, recurrent, 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.35 and 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 [facility] [id number] [place] [address] Feb, Generalized anxiety disorder 300.02 and Depressive disorder, not elsewhere classified 311 [facility] [id number] [place] [address] [id number] 07 Feb, 2015 Dental examination V72.2 [facility] [address] [address] Jan, Generalized anxiety disorder 300.02 and Depressive disorder, not elsewhere classified 311 [facility] [address], [place] [address] Jan, [facility] [address], [place] [address] December, Generalized anxiety disorder 300.02 and Depressive disorder, not elsewhere classified 311 [facility] [id number] [place] [address] December, Major depressive disorder, recurrent, unspecified 296.30 and Panic disorder with agoraphobia 300.21 [facility] [id number] [place] [address] Nov, [facility] [address] [id number], [place] [address] Nov, [facility] [address] [place] [address] Oct, [facility] [address], [place] [address] Oct, [facility] [address], [place] [address] Oct, [facility] [address], [place] [address] Oct, [facility] [address], [place] [address] Sep, [facility] [address], [place] [address] Sep, [facility] [address], [place] [address] Sep, [facility] [address], [place] [address] Sep, [facility] [id number] [place] [address] [place] [address] Sep, 2014 [facility] [place] [facility] [address] [id number] [place] [address] Sep, 2014 [facility] [place] [facility] [address] [id number] [place] [address] Sep, 2014 [facility] [place] [facility] [address] [id number] [place] [address] Sep, 2014 [facility] [place] [facility] [address] [id number] [place] [address] Sep, 2014 [facility] [place] [facility] [address] [id number] [place] [address] Sep, 2014 [facility] [place] [facility] [address] [id number] [place] [address] Aug, [facility] [place] [facility] [address] [facility] [id number] [place] [address] Aug, [facility] [place] [facility] [address] [id number] [place] [address] Jul, [facility] [place] [facility] [address] [id number] [place] [address] Jul, [facility] [place] [facility] [address] [facility] [id number] [place] [address] 18 Jul, 2014 [facility] [place] [facility] [address] [id number] [place] [address] 18 Jul, 2014 [facility] [place] [facility] [address] [id number] [place] [address] Jul, [facility] [place] [facility] [address] [id number] [place] [address] Jul, [facility] [place] [facility] [address] [id number] [place] [address] 05 Jul, 2014 [facility] [place] [facility] [address] [facility] [id number] [place] [address] Jul, [facility] [place] [facility] [address] [id number] [place] [address] Jul, [facility] [place] [facility] [address] [id number] [place] [address] Jul, [facility] [place] [facility] [address] [id number] [place] [address] Jul, [facility] [place] [facility] [address] [id number] [place] [address] Jul, [facility] [place] [facility] [address] [id number] [place] [address] Jun, [facility] [place] [facility] [address] [id number] [place] [address] Jun, [facility] [place] [facility] [address] [id number] [place] [address] May, [facility] [place] [facility] [address] [id number] [place] [address] May, [facility] [place] [facility] [address] [id number] [place] [address] May, [facility] [place] [facility] [address] [id number], [place] [address] May, [facility] [place] [facility] [address] [id number], [place] [address] May, [facility] [place] [facility] [address] [id number], [place] [address] May, [facility] [place] [facility] [address] [id number], [place] [address] May, [facility] [place] [facility] [address] [id number], [place] [address] May, [facility] [place] [facility] [address] [id number], [place] [address] May, [facility] [place] [facility] [address] [id number], [place] [address] May, [facility] [place] [facility] [address] [id number] [place] [address] May, [facility] [place] [facility] [address] [id number] [place] [address] May, [facility] [place] [facility] [address] [id number] [place] [address] Apr, [facility] [place] [facility] [address] [id number] [place] [address] 30 Apr, 2014 [facility] [place] [facility] [address] [id number] [place] [address] Apr, [facility] [place] [facility] [address] [id number] [place] [address] Apr, [facility] [place] [facility] [address] [id number] [place] [address] Apr, [facility] [place] [facility] [address] [id number] [place] [address] Apr, [facility] [place] [facility] [address] [id number] [place] [address] Feb, [facility] [place] [facility] [address] [id number] [place] [address] Feb, [facility] [place] [facility] [address] [id number] [place] [address] Feb, [facility] [place] [facility] [address] [id number] [place] [address] Feb, [facility] [place] [facility] [address] [id number] [place] [address] Feb, [facility] [place] [facility] [address] [id number] [place] [address] Feb, [facility] [place] [facility] [address] [facility] [id number] [place] [address] Jan, [facility] [place] [facility] [address] [id number] [place] [address] Jan, [facility] [place] [facility] [address] [id number] [place] [address] Jan, [facility] [place] [facility] [address] [id number] [place] [address] Jan, [facility] [place] [facility] [address] [id number] [place] [address] Jan, [facility] [place] [facility] [address] [id number] [place] [address] Jan, [facility] [place] [facility] [address] [id number] [place] [address] Jan, [facility] [place] [facility] [address] [id number] [place] [address] Jan, [facility] [place] [facility] [address] [id number] [place] [address] December, [facility] [place] [facility] [address] [id number] [place] [address] December, [facility] [place] [facility] [address] [id number] [place] [address] December, [facility] [place] [facility] [address] [id number] [place] [address] December, [facility] [place] [facility] [address] [id number] [place] [address] Nov, [facility] [place] [facility] [address] [id number] [place] [address] Nov, [facility] [place] [facility] [address] [id number] [place] [address] Nov, [facility] [place] [facility] [address] [id number] [place] [address] Nov, [facility] [place] [facility] [address] [id number] [place] [address] Nov, [facility] [place] [facility] [address] [id number] [place] [address] Nov, [facility] [place] [facility] [address] [id number] [place] [address] Nov, [facility] [place] [facility] [address] [id number] [place] [address] Nov, [facility] [place] [facility] [address] [id number] [place] [address] Oct, [facility] [place] [facility] [address] [id number] [place] [address] Oct, [facility] [place] [facility] [address] [id number] [place] [address] Sep, [facility] [place] [facility] [address] [id number] [place] [address] Sep, [facility] [place] [facility] [address] [id number] [place] [id number] Sep, [facility] [place] [facility] [address] [id number] [place] [address] Sep, [facility] [place] [facility] [address] [id number] [place] [address] Sep, [facility] [place] [facility] [address] [id number] [place] [address] Sep, [facility] [place] [facility] [address] [id number] [place] [address] Aug, [facility] [place] [facility] [address] [id number] [place] [address] Aug, [facility] [place] [facility] [address] [id number] [place] [address] Aug, [facility] [place] [facility] [address] [id number] [place] [address] Aug, [facility] [place] [facility] [address] [id number] [place] [address] Jul, [facility] [address] [id number] [place] [address] Jul, [facility] [place] [facility] [address] [id number] [place] [address] Jul, [facility] [address] [id number] [place] [address] Jul, [facility] [place] [facility] [address] [id number] [place] [address] Jun, [facility] [address] [id number] [place] [address] Jun, [facility] [address] [id number] [place] [address] May, [facility] [place] [facility] [address] [id number] [place] [address] 24 May, 2013 [facility] [address] [id number] [place] [address] May, [facility] [place] [facility] [address] [id number] [place] [address] May, [facility] [address] [id number] [place] [address] May, [facility] [place] [facility] [address] [id number] [place] [address] 17 Apr, 2013 [facility] [place] [facility] [address] [id number] [place] [address] 10 Apr, 2013 [facility] [place] [facility] [address] [id number] [place] [address] 29 Mar, 2013 [facility] [place] [facility] [address] [id number] [place] [address] Mar, [facility] [place] [facility] [address] [id number] [place] [address] 15 Mar, 2013 [facility] [address] [id number] [place] [address] Mar, [facility] [place] [facility] [address] [id number] [place] [address] Feb, [facility] [place] [facility] [address] [id number] [place] [address] Feb, [facility] [place] [facility] [address] [id number] [place] [address] Feb, [facility] [place] [facility] [address] [id number] [place] [address] Feb, [facility] [place] [facility] [address] [id number] [place] [address] Feb, [facility] [place] [facility] [address] [id number] [place] [address] Jan, [facility] [place] [facility] [address] [id number] [place] [address] Jan, [facility] [place] [facility] [address] [id number] [place] [address] Jan, [facility] [place] [facility] [address] [id number] [place] [address] Jan, [facility] [place] [facility] [address] [id number] [place] [address] Jan, [facility] [place] [facility] [address] [id number] [place] [address] December, [facility] [place] [facility] [address] [id number] [place] [address] December, [facility] [place] [facility] [address] [id number] [place] [address] Nov, [facility] [place] [facility] [address] [id number] [place] [address] Nov, [facility] [place] [facility] [address] [id number], [place] [address] 19 Oct, 2012 [facility] [address] [id number] [place] [address] Oct, [facility] [address] [id number] [place] [address] 05 Oct, 2012 [facility] [address] [facility] [id number] [place] [address] 14 Sep, 2012 [facility] [address] [id number] [place] [address] 24 Aug, 2012 [facility] [address] [id number] [place] [address] 16 Aug, 2012 [facility] [address] [id number] [place] [address] Aug, [facility] [address] [facility] [id number] [place] [address] Aug, [facility] [address] [id number] [place] [address] Jul, [facility] [address] [id number] [place] [address] Jul, [facility] [address] [facility] [id number] [place] [address] Jul, [facility] [address] [facility] [id number] [place] [address] Jul, [facility] [address] [id number], [place] [address] Jul, [facility] [address] [id number] [place] [address] Jul, [facility] [address] [facility] [id number] [place] [address] Jul, [facility] [address] [facility] [id number] [place] [address] Jul, [facility] [place] [facility] [address] [id number] [place] [address] Jun, [facility] [place] [facility] [address] [id number] [place] [address] Jun, [facility] [place] [facility] [address] [id number] [place] [address] Jun, [facility] [place] [facility] [address] [id number] [place] [address] Jun, [facility] [place] [facility] [address] [id number] [place] [address] Jun, [facility] [place] [facility] [address] [id number] [place] [address] Jun, [facility] [place] [facility] [address] [id number] [place] [address] May, [facility] [place] [facility] [address] [id number] [place] [address] May, [facility] [place] [facility] [address] [id number] [place] [address] May, [facility] [place] [facility] [address] [id number] [place] [address] May, [facility] [place] [facility] [address] [id number] [place] [address] Apr, [facility] [place] [facility] [address] [id number] [place] [address] 06 Apr, 2012 [facility] [place] [facility] [address] [id number] [place] [address] Mar, [facility] [place] [facility] [address] [id number] [place] [address] Jan, [facility] [place] [facility] [address] [id number] [place] [address] Jan, [facility] [place] [facility] [address] [id number] [place] [address] 16 Jan, 2012 [facility] [place] [facility] [address] [id number] [place] [address] 15 Jan, 2012 [facility] [place] [facility] [address] [id number] [place] [address] 14 Jan, 2012 [facility] [place] [facility] [address] [id number] [place] [address] 14 Jan, 2012 [facility] [place] [facility] [address] [id number] [place] [address] 07 Jan, 2012 [facility] [place] [facility] [address] [id number] [place] [address] December, [facility] [place] [facility] [address] [id number] [place] [address] December, [facility] [place] [facility] [address] [id number] [place] [address] December, [facility] [place] [facility] [address] [id number] [place] [address] December, [facility] [place] [facility] [address] [id number] [place] [address] Nov, [facility] [place] [facility] [address] [id number] [place] [address] Nov, [facility] [place] [facility] [address] [id number] [place] [address] Oct, [facility] [place] [facility] [address] [id number], [place] [address] 28 Oct, 2011 [facility] [place] [facility] [address] [id number] [place] [address] 15 Oct, 2011 [facility] [place] [facility] [address] [id number] [place] [address] Sep, [facility] [place] [facility] [address] [id number] [place] [address] Sep, [facility] [place] [facility] [address] [id number] [place] [address] 02 Sep, 2011 [facility] [address] [id number] [place] [address] Aug, [facility] [address] [id number] [place] [address] Aug, [facility] [address] [id number] [place] [address] Aug, [facility] [address] [id number] [place] [address] Aug, [facility] [address] [id number] [place] [address] Aug, [facility] [address] [id number] [place] [address] Aug, [facility] [address] [id number] [place] [address] Aug, [facility] [address] [id number] [place] [address] Jul, [facility] [address] [id number] [place] [address] Jul, [facility] [address] [id number] [place] [address] Jun, [facility] [address] [id number] [place] [address] 28 Jun, 2011 [facility] [address] [id number] [place] [address] 17 Jun, 2011 [facility] [address] [id number] [place] [address] 15 Jun, 2011 [facility] [address] [id number] [place] [address] 14 Jun, 2011 [facility] [address] [id number] [place] [address] 14 Jun, 2011 [facility] [place] [facility] [address] [id number] [place] [address] Jun, [facility] [place] [facility] [address] [id number] [place] [address] Jun, [facility] [place] [facility] [address] [id number] [place] [address] Jun, [facility] [place] [facility] [address] [id number] [place] [address] Jun, [facility] [place] [facility] [address] [id number] [place] [address] May, [facility] [place] [facility] [address] [id number] [place] [address] May, [facility] [place] [facility] [address] [id number] [place] [address] May, [facility] [place] [facility] [address] [id number] [place] [address] May, [facility] [place] [facility] [address] [id number] [place] [address] May, [facility] [place] [facility] [address] [id number], [place] [address] May, [facility] [place] [facility] [address] [id number], [place] [address] Feb, [facility] [place] [facility] [address] [id number], [place] [address] December, [facility] [place] [facility] [address] [id number] [place] [address] Jul, [facility] [place] [facility] [address] [id number] [place] [address] Jul, [facility] [place] [facility] [address] [id number], [place] [address] Jul, [facility] [place] [facility] [address] [id number], [place] [address] Jul, [facility] [id number], [place] [address] Jun, [facility] [id number], [place] [address] Jul, [facility] [id number], [place] [address] Jul, [facility] [id number], [place] [address] Jul, [facility] [id number], [place] [address] Jul, [facility] [id number], [place] [address] Jul, [facility] [id number], [place] [address] Jul, [facility] [id number], [place] [address] Jan, [facility] [id number], [place] [address] 16 Sep, 2008 [facility] [id number], [place] [address] Sep, IMMUNIZATIONS No Known Immunizations SOCIAL HISTORY Never Assessed REASON FOR VISIT followup Anxiety/ Grief PLAN OF CARE Activity Details Follow Up 2 Weeks Reason: Follow-up VITAL SIGNS MEDICATIONS Unknown Medications RESULTS No Results PROCEDURES Procedure Date Ordered Result Body Site Psychotherapy, patient &/family, 45 minutes, established patient Jul 13, 2018 INSTRUCTIONS MEDICATIONS ADMINISTERED No Known Medications [...]
--- OUTSIDE RECORDS SUMMARY | 2019-01-22 20:43 | XMS REPORT ---
Author Author KVNG MERCHANT [facility] Address [address] [place] [address] Care Team Providers Care Applications Processor Name Role Phone KVNG MERCHANT Unavailable PROBLEMS Type Condition ICD9-CM Code [id number] Code Onset Dates Condition Status SNOMED Code Problem Family history of diabetes mellitus Z83.3 Active 457200686 Problem Hot flashes N95.1 Active 747859955 Problem Excessive and frequent menstruation with irregular cycle N92.1 Active 439046504 Problem Diverticulitis K57.92 Active 388375071 Problem Gastroesophageal reflux disease with esophagitis K21.0 Active 611470660 Problem Mitral valve prolapse I34.1 Active 614721079 Problem Perimenopausal N95.1 Active 296124773681412 Problem Tachycardia R00.0 Active 1346035 Problem Abnormal uterine bleeding (AUB) N93.9 Active 31046204760208 Problem History of diverticulitis Z87.19 Active 412463309567389 Problem History of colon polyps Z86.010 Active 411154404 Problem Generalized anxiety disorder F41.1 Active 725340536 Problem Dense breast tissue R92.2 Active 332093281 Problem Hypertension I10 Active 10881752 Problem History of ovarian cyst Z87.42 Active 43235170 ALLERGIES No Information ENCOUNTERS Encounter Location Date Diagnosis [facility] [id number] [address] Jun, [facility] [id number], [place] [address] Jun, [facility] [address], [place] [address] May, [facility] [id number], [place] [address] May, Encounter for immunization Z23 [place] [id number], [place] [address] 08 May, 2018 Generalized anxiety disorder F41.1 and Bereavement Z63.4 [facility] [id number] [place] [address] 08 May, 2018 [facility] [address] [place] [phone] 24 Apr, 2018 Generalized anxiety disorder F41.1 and Bereavement Z63.4 [facility] [id number] [place] [address] 17 Apr, 2018 [facility] [id number] [place] [address] 13 Apr, 2018 Diverticulitis K57.92 [facility] [id number] [place] [phone] Apr, Generalized anxiety disorder F41.1 and Bereavement Z63.4 [facility] [id number] [place] [address] Mar, [facility] [id number] [place] [address] Mar, Diverticulitis K57.92 [facility] [id number] [place] [address] Mar, Generalized anxiety disorder F41.1 and Bereavement Z63.4 [facility] [id number] [place] [address] Mar, Hypertension I10 [facility] [id number] [place] [address] Mar, Generalized anxiety disorder F41.1 and Bereavement Z63.4 [facility] [id number] [place] [address] Feb, Generalized anxiety disorder F41.1 and Bereavement Z63.4 [facility] [id number] [place] [address] Feb, [facility] [address], [place] [address] Feb, Generalized anxiety disorder F41.1 and Bereavement Z63.4 [facility] [address], [place] [address] Feb, Generalized anxiety disorder F41.1 and Bereavement Z63.4 [facility] [id number] [place] [address] Jan, Hypertension I10 and Acute non-recurrent maxillary sinusitis J01.00 [facility] [id number] [place] [address] December, [facility] [id number] [place] [address] December, Hypertension I10 [facility] [id number] [place] [address] December, Generalized anxiety disorder F41.1 [facility] [address] [id number], [place] [address] Oct, Encounter for dental examination Z01.20 [facility] [address] [id number], [place] [address] Oct, Encounter for dental examination Z01.20 [facility] [address] [id number], [place] [address] Oct, Dental examination Z01.20 [facility] [address], [place] [address] Oct, Generalized anxiety disorder F41.1 [facility] [address] [id number], [place] [address] Aug, Dental examination Z01.20 [facility] [address], [place] [address] Aug, Generalized anxiety disorder F41.1 [facility] [address] [id number], [place] [address] Aug, [facility] [address] [id number], [place] [address] 09 Aug, 2017 Encounter for dental examination Z01.20 [facility] [id number], [place] [address] Aug, Subacute maxillary sinusitis J01.00 [facility] [address] [id number], [place] [address] Jul, Dental examination Z01.20 [facility] [id number] [place] [address] Jul, Generalized anxiety disorder F41.1 [facility] [id number] [place] [address] Jul, Diverticulitis K57.92 [facility] [id number] [place] [address] Jun, Encounter for immunization Z23 [facility] [address] [id number] [place] [address] Jun, Dental examination Z01.20 [facility] [id number] [place] [address] 14 Jun, 2017 Generalized anxiety disorder F41.1 [facility] [address] [id number], [place] [address] 07 Jun, 2017 Dental examination Z01.20 [facility] [address] [id number], [place] [address] May, [facility] [id number] [place] [phone] May, Dental examination Z01.20 [facility] [address] [id number] [id number] May, Dental examination Z01.20 [facility] [id number], [place] [address] 13 May, 2017 Dental examination Z01.20 [facility] [id number] [place] [phone] May, [facility] [id number] [place] [address] May, Generalized anxiety disorder F41.1 [facility] [id number] [place] [address] May, Localized edema R60.0 ; Yeast vaginitis B37.3 and Gastroesophageal reflux disease with esophagitis K21.0 [facility] [id number] [place] [phone] Apr, Dental examination Z01.20 [facility] [id number] [place] [address] Apr, Dental examination Z01.20 [facility] [id number] [place] [address] Apr, Dental examination Z01.20 [facility] [id number] [place] [address] Mar, Dyspepsia R10.13 [facility] [id number] [place] [address] Mar, Generalized anxiety disorder F41.1 [facility] [address] [place] [id number] [place] [address] Mar, Encounter for dental examination Z01.20 [facility] [address] [place] [phone] Mar, [facility] [id number] [place] [phone] Mar, Dental examination Z01.20 [facility] [id number] [place] [address] Feb, Hypertension I10 and Tachycardia R00.0 [facility] [id number], [place] [address] Feb, [facility] [id number] [place] [address] Feb, Generalized anxiety disorder F41.1 [facility] [id number] [place] [phone] Feb, Dental examination Z01.20 [facility] [id number] [place] [address] Jan, Generalized anxiety disorder F41.1 [facility] [id number] [place] [phone] December, Generalized anxiety disorder F41.1 [facility] [id number] [place] [phone] December, Encounter for dental examination Z01.20 [facility] [id number] [place] [phone] Nov, [facility] [id number] [place] [address] Nov, [facility] [id number] [place] [phone] Nov, Generalized anxiety disorder F41.1 [facility] [id number] [place] [phone] Oct, [facility] [id number] [place] [phone] Oct, Dental examination Z01.20 [facility] [id number] [place] [phone] Oct, Vaginal dryness N89.8 [facility] [id number] [place] [address] Oct, Pseudoseizures F44.5 [facility] [id number] [place] [phone] Oct, Generalized anxiety disorder F41.1 [place] [id number] [place] [phone] 28 Sep, 2016 Abnormal uterine bleeding (AUB) N93.9 ; Vaginal dryness N89.8 and Screening breast examination Z12.39 [place] [id number] [place] [address] 20 Sep, 2016 Dental examination Z01.20 [place] [id number] [place] [address] 20 Sep, 2016 Generalized anxiety disorder F41.1 [place] [address] [address] 06 Sep, 2016 Unspecified ovarian cyst, right side N83.201 ; Unspecified ovarian cyst, left side N83.202 ; Yeast infection of the vagina B37.3 ; Mitral valve prolapse I34.1 and Hypertension I10 [place] [id number] [place] [address] Aug, Generalized anxiety disorder F41.1 [place] [id number] [place] [address] Jul, [place] [id number] [place] [address] Jul, Generalized anxiety disorder F41.1 [place] [id number] [place] [address] Jun, Generalized anxiety disorder F41.1 [place] [id number] [place] [phone] May, Encounter for immunization Z23 [place] [address] [address] 17 May, 2016 Generalized anxiety disorder F41.1 and Depressive disorder, not elsewhere classified F32.9 [place] [address] [address] Apr, Hypertension I10 [facility] [address], [place] [address] 22 Apr, 2016 Cervicalgia M54.2 [facility] [address] [place] [phone] 12 Apr, 2016 Cervicalgia M54.2 [facility] [id number] [place] [address] Mar, Generalized anxiety disorder F41.1 and Depressive disorder, not elsewhere classified F32.9 [facility] [id number] [place] [address] [phone] Feb, Visit for dental examination Z01.20 [facility] [id number] [place] [address] Feb, Pseudoseizures F44.5 ; Migraine without status migrainosus, not intractable, unspecified migraine type G43.909 and Essential hypertension I10 [facility] [id number] [place] [phone] Feb, Dental examination Z01.20 [facility] [id number] [place] [phone] Feb, Generalized anxiety disorder F41.1 and Depressive disorder, not elsewhere classified F32.9 [facility] [id number] [place] [phone] Jan, Tachycardia R00.0 [facility] [id number] [place] [address] December, Eustachian tube dysfunction, bilateral H69.83 [facility] [id number] [place] [phone] December, Generalized anxiety disorder F41.1 and Depressive disorder, not elsewhere classified F32.9 [facility] [id number] [place] [address] Nov, [facility] [address] [address] 28 Nov, 2015 [place] [address] [address] Nov, Hypertension I10 ; Onychomycosis B35.1 ; [...] and Complex cyst of left ovary N83.29 [place] [address] [address] 14 Nov, 2015 Sinusitis J32.9 [place] [address] [address] Oct, Complex cyst of left ovary N83.29 [place] [address] [address] Oct, Onychomycosis B35.1 [facility] [address] [id number] Oct, 2015 Dental examination Z01.20 [place] [address] [address] 09 Oct, 2015 Well woman exam Z01.419 [...] R92.2 and History of colon polyps Z86.010 [place] [address] [address] Oct, Generalized anxiety disorder F41.1 and Depressive disorder, not elsewhere classified F32.9 [facility] [id number] [place] [address] Sep, Hypertension I10 and Onychomycosis B35.1 [facility] [id number] [place] [address] Sep, Skin tags, multiple acquired L91.8 [facility] [id number] [place] [address] Aug, [place] [address] [address] Aug, [facility] [id number] [place] [phone] Aug, [place] [id number] [place] [address] Aug, Generalized anxiety disorder F41.1 and Depressive disorder, not elsewhere classified F32.9 [facility] [id number] [place] [phone] Jul, Skin lesion L98.9 [facility] [id number] [place] [address] Jun, Generalized anxiety disorder F41.1 and Depressive disorder, not elsewhere classified F32.9 [facility] [id number] [place] [address] Jun, [facility] [id number] [place] [phone] Jun, Generalized anxiety disorder F41.1 [place] [id number] [place] [address] May, Encounter for immunization Z23 and Right shoulder pain M25.511 [facility] [id number] [place] [address] Apr, [facility] [address], [place] [address] Apr, Generalized anxiety disorder 300.02 and Depressive disorder, not elsewhere classified 311 [facility] [address] [id number] Mar, Dental examination V72.2 [facility] [id number] [place] [phone] Mar, Generalized anxiety disorder 300.02 and Depressive disorder, not elsewhere classified 311 [facility] [id number] [place] [address] Mar, Depression, major, recurrent, 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.35 and 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 [facility] [address] [place] [address] Feb, Generalized anxiety disorder 300.02 and Depressive disorder, not elsewhere classified 311 [facility] [address] [place] [phone] Feb, Dental examination V72.2 [facility] [id number] [place] [address] Jan, Generalized anxiety disorder 300.02 and Depressive disorder, not elsewhere classified 311 [facility] [address], [place] [address] Jan, [facility] [id number] [place] [phone] December, Generalized anxiety disorder 300.02 and Depressive disorder, not elsewhere classified 311 [facility] [address], [place] [address] December, Major depressive disorder, recurrent, unspecified 296.30 and Panic disorder with agoraphobia 300.21 [facility] [address], [place] [address] Nov, [facility] [id number] [place] [phone] Nov, [facility] [place] [facility] [address] [id number] [place] [address] Oct, [facility] [place] [facility] [address] [id number] [place] [address] Oct, [facility] [place] [facility] [address] [facility] [id number] [place] [address] Oct, [facility] [place] [facility] [address] [id number] [place] [address] Oct, [facility] [place] [facility] [address] [id number] [place] [address] Sep, [facility] [place] [facility] [address] [facility] [id number] [place] [address] Sep, [facility] [place] [facility] [address] [facility] [id number] [place] [address] Sep, 2014 [facility] [place] [facility] [address] [facility] [id number] [place] [address] Sep, [facility] [place] [facility] [address] [facility] [id number] [place] [address] Sep, 2014 [facility] [place] [facility] [address] [facility] [id number] [place] [address] Sep, [facility] [place] [facility] [address] [facility] [id number] [place] [address] Sep, 2014 [facility] [place] [facility] [address] [facility] [id number] [place] [address] Sep, 2014 [facility] [place] [facility] [address] [id number] [place] [address] Sep, 2014 [facility] [place] [facility] [address] [facility] [id number] [place] [address] Sep, 2014 [facility] [place] [facility] [address] [facility] [id number] [place] [address] Aug, [facility] [place] [facility] [address] [id number] [place] [address] Aug, [facility] [place] [facility] [address] [id number] [place] [address] Jul, [facility] [place] [facility] [address] [id number] [place] [address] Jul, [facility] [place] [facility] [address] [id number] [place] [address] Jul, [facility] [place] [facility] [address] [id number] [place] [address] Jul, [facility] [place] [facility] [address] [id number] [place] [address] Jul, [facility] [place] [facility] [address] [id number] [place] [address] Jul, [facility] [place] [facility] [address] [id number] [place] [address] Jul, [facility] [place] [facility] [address] [id number] [place] [address] Jul, [facility] [place] [facility] [address] [id number] [place] [address] Jul, [facility] [place] [facility] [address] [id number] [place] [address] Jul, [facility] [place] [facility] [address] [id number] [place] [address] Jul, [facility] [place] [facility] [address] [id number] [place] [address] Jul, [facility] [place] [facility] [address] [id number] [place] [address] Jun, [facility] [place] [facility] [address] [id number] [place] [address] Jun, [facility] [place] [facility] [address] [id number], [place] [address] May, [facility] [place] [facility] [address] [id number] [place] [address] May, [facility] [place] [facility] [address] [id number] [place] [address] May, [facility] [place] [facility] [address] [id number] [place] [address] May, [facility] [place] [facility] [address] [id number] [place] [address] May, [facility] [place] [facility] [address] [id number] [place] [address] May, [facility] [place] [facility] [address] [id number] [place] [address] May, [facility] [place] [facility] [address] [id number] [place] [address] May, [facility] [place] [facility] [address] [id number] [place] [address] May, [facility] [place] [facility] [address] [id number] [place] [address] May, [facility] [place] [facility] [address] [id number] [place] [address] May, [facility] [place] [facility] [address] [id number], [place] [address] May, [facility] [place] [facility] [address] [id number], [place] [address] 30 Apr, 2014 [facility] [place] [facility] [address] [id number] [place] [address] 30 Apr, 2014 [facility] [place] [facility] [address] [id number] [place] [address] 29 Apr, 2014 [facility] [place] [facility] [address] [id number] [place] [address] 29 Apr, 2013 [facility] [place] [facility] [address] [id number] [place] [address] Apr, [facility] [place] [facility] [address] [id number] [place] [address] Apr, [facility] [place] [facility] [address] [id number] [place] [address] Feb, [facility] [place] [facility] [address] [id number] [place] [address] Feb, [facility] [place] [facility] [address] [id number] [place] [address] Feb, [facility] [place] [facility] [address] [id number] [place] [address] Feb, [facility] [place] [facility] [address] [id number] [place] [address] Feb, [facility] [place] [facility] [address] [id number] [place] [address] Feb, [facility] [place] [facility] [address] [id number] [place] [address] Jan, [facility] [place] [facility] [address] [id number] [place] [address] Jan, [facility] [place] [facility] [address] [id number] [place] [address] Jan, [facility] [place] [facility] [address] [id number] [place] [address] Jan, [facility] [place] [facility] [address] [id number] [place] [address] Jan, [facility] [place] [facility] [address] [id number] [place] [address] Jan, [facility] [place] [facility] [address] [id number] [place] [address] Jan, [facility] [place] [facility] [address] [id number] [place] [address] Jan, [facility] [place] [facility] [address] [id number] [place] [address] December, [facility] [place] [facility] [address] [id number] [place] [address] December, [facility] [place] [facility] [address] [id number] [place] [address] December, [facility] [place] [facility] [address] [id number] [place] [address] December, [facility] [place] [facility] [address] [id number] [place] [address] Nov, [facility] [place] [facility] [address] [id number] [place] [address] Nov, [facility] [place] [facility] [address] [id number] [place] [address] Nov, [facility] [place] [facility] [address] [id number] [place] [address] Nov, [facility] [place] [facility] [address] [id number] [place] [address] Nov, [facility] [place] [facility] [address] [id number] [place] [address] Nov, [facility] [place] [facility] [address] [id number] [place] [address] Nov, [facility] [place] [facility] [address] [id number], [place] [address] Nov, [facility] [place] [facility] [address] [id number] [place] [address] Oct, [facility] [place] [facility] [address] [id number] [place] [address] Oct, [facility] [place] [facility] [address] [id number] [place] [address] Sep, [facility] [place] [facility] [address] [id number] [place] [address] 27 Sep, 2013 [facility] [place] [facility] [address] [id number] [place] [id number] Sep, [facility] [place] [facility] [address] [id number] [place] [address] Sep, [facility] [place] [facility] [address] [id number] [place] [address] Sep, [facility] [place] [facility] [address] [id number] [place] [address] Sep, [facility] [place] [facility] [address] [id number] [place] [address] Aug, [facility] [place] [facility] [address] [id number] [place] [address] Aug, [facility] [place] [facility] [address] [id number] [place] [address] Aug, [facility] [place] [facility] [address] [id number] [place] [address] Aug, [facility] [place] [facility] [address] [id number] [place] [address] Jul, [facility] [place] [facility] [address] [id number] [place] [address] Jul, [facility] [place] [facility] [address] [id number] [place] [address] Jul, [facility] [place] [facility] [address] [id number] [place] [address] Jul, [facility] [place] [facility] [address] [id number] [place] [address] Jun, [facility] [place] [facility] [address] [id number] [place] [address] Jun, [facility] [place] [facility] [address] [id number] [place] [address] 24 May, 2013 [facility] [place] [facility] [address] [id number] [place] [address] 24 May, 2013 [facility] [place] [facility] [address] [id number] [place] [address] May, [facility] [place] [facility] [address] [id number] [place] [address] May, [facility] [place] [facility] [address] [id number] [place] [address] May, [facility] [place] [facility] [address] [id number] [place] [address] Apr, [facility] [place] [facility] [address] [id number] [place] [address] Apr, [facility] [place] [facility] [address] [id number] [place] [address] Mar, [facility] [place] [facility] [address] [id number] [place] [address] Mar, [facility] [place] [facility] [address] [id number] [place] [address] Mar, [facility] [place] [facility] [address] [id number] [place] [address] Mar, [facility] [place] [facility] [address] [id number] [place] [address] Feb, [facility] [place] [facility] [address] [id number] [place] [address] Feb, [facility] [place] [facility] [address] [id number] [place] [address] 16 Feb, 2013 [facility] [place] [facility] [address] [id number] [place] [address] Feb, [facility] [place] [facility] [address] [id number] [place] [address] Feb, [facility] [place] [facility] [address] [id number], [place] [address] Jan, [facility] [address] [id number] [place] [address] Jan, [facility] [place] [facility] [address] [id number] [place] [address] Jan, [facility] [address] [id number] [place] [address] Jan, [facility] [place] [facility] [address] [id number] [place] [address] Jan, [facility] [address] [id number] [place] [address] December, [facility] [address] [id number] [place] [address] December, [facility] [address] [id number] [place] [address] Nov, [facility] [place] [facility] [address] [id number] [place] [address] Nov, [facility] [address] [id number] [place] [address] Oct, [facility] [place] [facility] [address] [id number] [place] [address] Oct, [facility] [address] [id number], [place] [address] Oct, [facility] [place] [facility] [address] [id number] [place] [address] Sep, [facility] [place] [facility] [address] [id number] [place] [address] 24 Aug, 2012 [facility] [place] [facility] [address] [id number] [place] [address] 16 Aug, 2012 [facility] [place] [facility] [address] [id number] [place] [address] 15 Aug, 2012 [facility] [place] [facility] [address] [id number] [place] [address] Aug, [facility] [place] [facility] [address] [id number] [place] [address] Jul, [facility] [place] [facility] [address] [id number] [place] [address] Jul, [facility] [place] [facility] [address] [id number] [place] [address] Jul, [facility] [place] [facility] [address] [id number] [place] [address] Jul, [facility] [place] [facility] [address] [id number] [place] [address] Jul, [facility] [place] [facility] [address] [id number] [place] [address] Jul, [facility] [place] [facility] [address] [id number] [place] [address] Jul, [facility] [place] [facility] [address] [id number] [place] [address] Jul, [facility] [place] [facility] [address] [id number] [place] [address] Jun, [facility] [place] [facility] [address] [facility] [id number] [place] [address] Jun, [facility] [place] [facility] [address] [id number] [place] [address] Jun, [facility] [place] [facility] [address] [id number] [place] [address] Jun, [facility] [place] [facility] [address] [id number] [place] [address] Jun, [facility] [place] [facility] [address] [id number] [place] [address] Jun, [facility] [place] [facility] [address] [id number] [place] [address] May, [facility] [place] [facility] [address] [id number] [place] [address] May, [facility] [place] [facility] [address] [id number] [place] [address] May, [facility] [place] [facility] [address] [id number] [place] [address] May, [facility] [place] [facility] [address] [id number] [place] [address] Apr, [facility] [place] [facility] [address] [id number] [place] [address] 06 Apr, 2012 [facility] [place] [facility] [address] [id number] [place] [address] Mar, [facility] [place] [facility] [address] [id number] [place] [address] Jan, [facility] [place] [facility] [address] [id number] [place] [address] 20 Jan, 2012 [facility] [place] [facility] [address] [id number] [place] [address] 16 Jan, 2012 [facility] [place] [facility] [address] [id number] [place] [address] 15 Jan, 2012 [facility] [place] [facility] [address] [id number], [place] [address] 14 Jan, 2012 [facility] [place] [facility] [address] [id number], [place] [address] 14 Jan, 2012 [facility] [place] [facility] [address] [id number] [place] [address] 07 Jan, 2012 [facility] [place] [facility] [address] [id number], [place] [address] December, [facility] [place] [facility] [address] [id number] [place] [address] December, [facility] [place] [facility] [address] [id number] [place] [address] December, [facility] [address] [id number] [place] [address] December, [facility] [address] [id number] [place] [address] Nov, [facility] [address] [id number] [place] [address] Nov, [facility] [address] [id number] [place] [address] Oct, [facility] [address] [id number] [place] [address] Oct, [facility] [address] [id number] [place] [address] Oct, [facility] [address] [id number] [place] [address] Sep, [facility] [address] [id number] [place] [address] Sep, [facility] [address] [id number] [place] [address] Sep, [facility] [address] [id number] [place] [address] Aug, [facility] [address] [id number] [place] [address] Aug, [facility] [address] [id number] [place] [address] Aug, [facility] [place] [facility] [address] [id number] [place] [address] Aug, [facility] [place] [facility] [address] [id number] [place] [address] Aug, [facility] [place] [facility] [address] [id number] [place] [address] Aug, [facility] [place] [facility] [address] [id number] [place] [address] Aug, [facility] [place] [facility] [address] [id number] [place] [address] Jul, [facility] [place] [facility] [address] [id number] [place] [address] Jul, [facility] [place] [facility] [address] [id number] [place] [address] Jun, [facility] [place] [facility] [address] [id number] [place] [address] 28 Jun, 2011 [facility] [place] [facility] [address] [id number] [place] [address] 17 Jun, 2011 [facility] [place] [facility] [address] [id number] [place] [address] 15 Jun, 2011 [facility] [place] [facility] [address] [id number] [place] [address] 14 Jun, 2011 [facility] [place] [facility] [address] [id number] [place] [address] Jun, [facility] [place] [facility] [address] [id number] [place] [address] Jun, [facility] [place] [facility] [address] [id number] [place] [address] Jun, [facility] [place] [facility] [address] [id number], [place] [address] Jun, [facility] [place] [facility] [address] [id number] [place] [address] Jun, [facility] [place] [facility] [address] [id number] [place] [address] May, [facility] [place] [facility] [address] [id number] [place] [address] May, [facility] [place] [facility] [address] [id number], [place] [address] May, [facility] [address] [id number] [place] [address] 24 May, 2011 [facility] [place] [facility] [address] [id number] [place] [address] 18 May, 2011 [facility] [address] [id number] [place] [address] 13 May, 2011 [facility] [place] [facility] [address] [id number] [place] [address] 13 Feb, 2011 [facility] [address] [id number] [place] [address] December, [facility] [address] [id number] [place] [address] 29 Jul, 2010 [facility] [address] [id number] [place] [address] 29 Jul, 2010 [facility] [place] [facility] [address] [id number] [place] [address] 22 Jul, 2010 [facility] [address] [id number] [place] [address] Jul, [facility] [place] [facility] [address] [id number] [place] [address] 15 Jun, 2010 [facility] [address] [id number] [place] [address] 31 Jul, 2009 [facility] [place] [facility] [address] [id number] [place] [address] 23 Jul, 2009 [facility] [place] [facility] [address] [id number] [place] [address] 23 Jul, 2009 [facility] [place] [facility] [address] [id number] [place] [address] 17 Jul, 2009 [facility] [place] [facility] [address] [id number] [place] [address] 17 Jul, 2009 [facility] [place] [facility] [address] [facility] [id number] [place] [address] 10 Jul, 2009 [facility] [address] [facility] [id number], [place] [address] Jan, [facility] [address] [id number] [address] 16 Sep, 2008 [facility] [address] [facility] [id number], [place] [address] 11 Sep, 2008 IMMUNIZATIONS No Known Immunizations SOCIAL HISTORY Never Assessed REASON FOR VISIT followup Anxiety/ Grief PLAN OF CARE Activity Details Follow Up 2 Weeks Reason: Follow-up VITAL SIGNS MEDICATIONS Unknown Medications RESULTS No Results PROCEDURES Procedure Date Ordered Result Body Site Psychotherapy, patient &/family, 45 minutes, established patient Jun 01, 2018 INSTRUCTIONS MEDICATIONS ADMINISTERED No Known Medications [...]
--- OUTSIDE RECORDS SUMMARY | 2019-01-22 20:44 | XMS REPORT ---
Author Author LETTY WILKINS Organization [facility] Address [address] [place] [address] Care Team Providers Care Boat Officer Name Role Phone LETTY WILKINS Unavailable PROBLEMS Type Condition ICD9-CM Code BHA25-LD Code Onset Dates Condition Status SNOMED Code Problem Family history of diabetes mellitus Z83.3 Active 649070846 Problem Hot flashes N95.1 Active 845274523 Problem Excessive and frequent menstruation with irregular cycle N92.1 Active 044302898 Problem Diverticulitis K57.92 Active 542706234 Problem Gastroesophageal reflux disease with esophagitis K21.0 Active 113545067 Problem Mitral valve prolapse I34.1 Active 243744765 Problem Perimenopausal N95.1 Active 452877665852620 Problem Tachycardia R00.0 Active 7736510 Problem Abnormal uterine bleeding (AUB) N93.9 Active 47537208478968 Problem History of diverticulitis Z87.19 Active 119166731487921 Problem History of colon polyps Z86.010 Active 841149407 Problem Generalized anxiety disorder F41.1 Active 361156004 Problem Dense breast tissue R92.2 Active 982123312 Problem Hypertension I10 Active 47553393 Problem History of ovarian cyst Z87.42 Active [id number] ALLERGIES No Information ENCOUNTERS Encounter Location Date Diagnosis [place] [id number] [address] Jun, [facility] [address] [address] Jun, [place] [address] [address] May, [place] [id number] [address] May, Encounter for immunization Z23 [place] [id number] [address] May, Generalized anxiety disorder F41.1 and Bereavement Z63.4 [facility] [id number] [place] [address] May, [facility] [address] [place] [address] 24 Apr, 2018 Generalized anxiety disorder F41.1 and Bereavement Z63.4 [facility] [id number] [place] [address] 17 Apr, 2018 [facility] [id number] [place] [address] 13 Apr, 2018 Diverticulitis K57.92 [facility] [address] [place] [address] Apr, Generalized anxiety disorder F41.1 and Bereavement Z63.4 [facility] [address] [place] [address] Mar, [facility] [id number] [place] [address] Mar, Diverticulitis K57.92 [facility] [address] [place] [address] Mar, Generalized anxiety disorder F41.1 and Bereavement Z63.4 [facility] [address] [place] [address] Mar, Hypertension I10 [facility] [address] [place] [address] Mar, Generalized anxiety disorder F41.1 and Bereavement Z63.4 [facility] [address] [address] Feb, Generalized anxiety disorder F41.1 and Bereavement Z63.4 [facility] [id number] [address] Feb, [facility] [id number] [place] [address] Feb, Generalized anxiety disorder F41.1 and Bereavement Z63.4 [facility] [address] [place] [address] Feb, Generalized anxiety disorder F41.1 and Bereavement Z63.4 [facility] [id number] [place] [address] Jan, Hypertension I10 and Acute non-recurrent maxillary sinusitis J01.00 [facility] [id number] [place] [address] December, [facility] [id number] [place] [address] December, Hypertension I10 [facility] [id number] [place] [address] December, Generalized anxiety disorder F41.1 [facility] [id number] [address] Oct, Encounter for dental examination Z01.20 [facility] [address] [id number] [address] Oct, Encounter for dental examination Z01.20 [facility] [address] [id number], [place] [address] Oct, Dental examination Z01.20 [facility] [address] [address] Oct, Generalized anxiety disorder F41.1 [facility] [address] [id number], [place] [address] Aug, Dental examination Z01.20 [facility] [address] [address] Aug, Generalized anxiety disorder F41.1 [facility] [address] [id number] [address] Aug, [facility] [id number] [place] [address] 09 Aug, 2017 Encounter for dental examination Z01.20 [facility] [address] [place] [address] Aug, Subacute maxillary sinusitis J01.00 [facility] [address] [id number] [address] Jul, Dental examination Z01.20 [facility] [id number] [place] [address] Jul, Generalized anxiety disorder F41.1 [facility] [id number] [place] [address] Jul, Diverticulitis K57.92 [facility] [id number] [place] [address] Jun, Encounter for immunization Z23 [facility] [address] [place] [id number] [place] [address] 22 Jun, 2017 Dental examination Z01.20 [facility] [address] [place] [address] 14 Jun, 2017 Generalized anxiety disorder F41.1 [facility] [id number] [place] [address] 07 Jun, 2017 Dental examination Z01.20 [facility] [id number] [place] [address] May, [facility] [id number] [place] [id number] May, Dental examination Z01.20 [facility] [address] [id number] [address] May, Dental examination Z01.20 [facility] [address] [id number], [place] [address] 13 May, 2017 Dental examination Z01.20 [facility] [id number] [place] [address] May, [facility] [id number] [place] [address] May, Generalized anxiety disorder F41.1 [facility] [id number] [place] [address] 05 May, 2017 Localized edema R60.0 ; Yeast vaginitis B37.3 and Gastroesophageal reflux disease with esophagitis K21.0 [facility] [id number] [place] [phone] Apr, Dental examination Z01.20 [facility] [id number] [place] [address] Apr, Dental examination Z01.20 [facility] [id number] [place] [address] 05 Apr, 2017 Dental examination Z01.20 [facility] [id number] [place] [address] Mar, Dyspepsia R10.13 [facility] [address] [place] [address] Mar, Generalized anxiety disorder F41.1 [facility] [id number] [place] [address] Mar, Encounter for dental examination Z01.20 [facility] [id number] [place] [id number] Mar, [facility] [id number] [place] [phone] Mar, Dental examination Z01.20 [facility] [address] [place] [address] Feb, Hypertension I10 and Tachycardia R00.0 [facility] [address] [id number] [address] Feb, [facility] [id number] [place] [address] Feb, Generalized anxiety disorder F41.1 [facility] [id number] [place] [id number] Feb, Dental examination Z01.20 [facility] [id number] [place] [address] Jan, Generalized anxiety disorder F41.1 [facility] [id number] [place] [address] December, Generalized anxiety disorder F41.1 [facility] [id number] [place] [phone] December, Encounter for dental examination Z01.20 [facility] [id number] [place] [address] Nov, [facility] [id number] [place] [address] Nov, [facility] [id number] [place] [address] Nov, Generalized anxiety disorder F41.1 [facility] [id number] [place] [address] Oct, [facility] [address] [place] [phone] Oct, Dental examination Z01.20 [facility] [id number] [place] [address] Oct, Vaginal dryness N89.8 [facility] [id number] [place] [address] Oct, Pseudoseizures F44.5 [facility] [address] [address] Oct, Generalized anxiety disorder F41.1 [place] [address] [address] 28 Sep, 2016 Abnormal uterine bleeding (AUB) N93.9 ; Vaginal dryness N89.8 and Screening breast examination Z12.39 [place] [address] [address] Sep, Dental examination Z01.20 [place] [address] [address] Sep, Generalized anxiety disorder F41.1 [place] [address] [address] 06 Sep, 2016 Unspecified ovarian cyst, right side N83.201 ; Unspecified ovarian cyst, left side N83.202 ; Yeast infection of the vagina B37.3 ; Mitral valve prolapse I34.1 and Hypertension I10 [place] [address] [address] Aug, Generalized anxiety disorder F41.1 [place] [address] [address] Jul, [place] [address] [address] Jul, Generalized anxiety disorder F41.1 [place] [address] [address] Jun, Generalized anxiety disorder F41.1 [place] [address] [address] May, Encounter for immunization Z23 [place] [address] [address] May, Generalized anxiety disorder F41.1 and Depressive disorder, not elsewhere classified F32.9 [place] [address] [address] 28 Apr, 2016 Hypertension I10 [facility] [address] [address] 22 Apr, 2016 Cervicalgia M54.2 [facility] [address] [address] 12 Apr, 2016 Cervicalgia M54.2 [facility] [id number] [place] [address] Mar, Generalized anxiety disorder F41.1 and Depressive disorder, not elsewhere classified F32.9 [facility] [id number] [place] [id number] 14 Feb, 2016 Visit for dental examination Z01.20 [facility] [id number] [place] [address] 11 Feb, 2016 Pseudoseizures F44.5 ; Migraine without status migrainosus, not intractable, unspecified migraine type G43.909 and Essential hypertension I10 [facility] [address] [place] [phone] Feb, Dental examination Z01.20 [facility] [id number] [place] [address] Feb, Generalized anxiety disorder F41.1 and Depressive disorder, not elsewhere classified F32.9 [facility] [address] [place] [address] Jan, Tachycardia R00.0 [facility] [id number] [place] [address] December, Eustachian tube dysfunction, bilateral H69.83 [facility] [id number] [place] [address] December, Generalized anxiety disorder F41.1 and Depressive disorder, not elsewhere classified F32.9 [facility] [address] [place] [address] Nov, [facility] [id number] [place] [address] 28 Nov, [address] [address] Nov, Hypertension I10 ; Onychomycosis B35.1 ; [...] and Complex cyst of left ovary N83.29 [place] [id number] [place] [address] 14 Nov, 2015 Sinusitis J32.[address] [address] Oct, Complex cyst of left ovary N83.29 [place] [id number] [place] [address] Oct, Onychomycosis B35.1 [facility] [id number] [place] [address] [id number] 17 Oct, 2015 Dental examination Z01.20 [place] [id number] [place] [address] 09 Oct, 2015 Well woman exam Z01.419 [...] R92.2 and History of colon polyps Z86.[address] [place] [address] Oct, Generalized anxiety disorder F41.1 and Depressive disorder, not elsewhere classified F32.9 [facility] [id number] [place] [address] Sep, Hypertension I10 and Onychomycosis B35.1 [facility] [id number] [place] [address] Sep, Skin tags, multiple acquired L91.8 [facility] [id number] [place] [address] Aug, [facility] [address] [address] Aug, [facility] [id number] [place] [address] Aug, [facility] [address] [address] Aug, Generalized anxiety disorder F41.1 and Depressive disorder, not elsewhere classified F32.9 [facility] [id number] [place] [address] Jul, Skin lesion L98.9 [facility] [id number] [place] [address] Jun, Generalized anxiety disorder F41.1 and Depressive disorder, not elsewhere classified F32.9 [facility] [id number] [place] [address] Jun, [facility] [id number] [place] [address] Jun, Generalized anxiety disorder F41.1 [facility] [id number] [place] [address] May, Encounter for immunization Z23 and Right shoulder pain M25.511 [facility] [id number] [place] [address] Apr, [facility] [address] [address] Apr, Generalized anxiety disorder 300.02 and Depressive disorder, not elsewhere classified 311 [facility] [address] [id number] Mar, Dental examination V72.2 [facility] [id number] [place] [address] Mar, Generalized anxiety disorder 300.02 and Depressive disorder, not elsewhere classified 311 [facility] [address] [place] [address] Mar, Depression, major, recurrent, 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.35 and 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 [facility] [address] [address] Feb, Generalized anxiety disorder 300.02 and Depressive disorder, not elsewhere classified 311 [facility] [address] [id number] Feb, Dental examination V72.2 [facility] [address] [place] [address] Jan, Generalized anxiety disorder 300.02 and Depressive disorder, not elsewhere classified 311 [facility] [address] [address] Jan, [facility] [id number] [place] [address] December, Generalized anxiety disorder 300.02 and Depressive disorder, not elsewhere classified 311 [facility] [address] [address] December, Major depressive disorder, recurrent, unspecified 296.30 and Panic disorder with agoraphobia 300.21 [facility] [address] [address] Nov, [facility] [id number] [place] [address], [place] [address] Nov, [facility] [place] [facility] [address] [id number] [place] [address] Oct, 2014 [facility] [place] [facility] [address] [id number] [place] [address] Oct, 2014 [facility] [place] [facility] [address] [id number] [place] [address] Oct, [facility] [place] [facility] [address] [id number] [place] [address] Oct, [facility] [place] [facility] [address] [id number] [place] [address] Sep, 2014 [facility] [place] [facility] [address] [id number] [place] [address] Sep, 2014 [facility] [place] [facility] [address] [id number] [place] [address] Sep, 2014 [facility] [place] [facility] [address] [id number] [place] [address] Sep, 2014 [facility] [place] [facility] [address] [id number] [place] [address] Sep, 2014 [facility] [place] [facility] [address] [facility] [id number] [place] [address] Sep, 2014 [facility] [place] [facility] [address] [id number] [place] [address] Sep, 2014 [facility] [place] [facility] [address] [id number] [place] [address] Sep, 2014 [facility] [place] [facility] [address] [id number] [place] [address] Sep, 2014 [facility] [place] [facility] [address] [facility] [id number] [place] [address] Sep, 2014 [facility] [place] [facility] [address] [facility] [id number] [place] [address] Aug, [facility] [place] [facility] [address] [id number] [place] [address] Aug, [facility] [place] [facility] [address] [id number] [place] [address] Jul, [facility] [place] [facility] [address] [id number] [place] [address] Jul, [facility] [place] [facility] [address] [id number] [place] [address] Jul, [facility] [place] [facility] [address] [id number] [place] [address] Jul, [facility] [place] [facility] [address] [id number] [place] [address] Jul, [facility] [place] [facility] [address] [id number] [place] [address] Jul, [facility] [place] [facility] [address] [id number] [place] [address] Jul, [facility] [place] [facility] [address] [id number] [place] [address] Jul, [facility] [place] [facility] [address] [id number] [place] [address] Jul, [facility] [place] [facility] [address] [id number] [place] [address] Jul, [facility] [place] [facility] [address] [id number] [address] Jul, [facility] [place] [facility] [address] [id number] [place] [address] Jul, [facility] [place] [facility] [address] [id number] [place] [address] Jun, [facility] [place] [facility] [address] [id number] [place] [address] Jun, [facility] [place] [facility] [address] [id number] [place] [address] May, [facility] [place] [facility] [address] [id number] [place] [address] May, [facility] [place] [facility] [address] [id number] [place] [address] May, [facility] [place] [facility] [address] [id number] [place] [address] May, [facility] [place] [facility] [address] [id number] [place] [address] May, [facility] [place] [facility] [address] [id number] [place] [address] May, [facility] [place] [facility] [address] [id number] [place] [address] May, [facility] [place] [facility] [address] [id number] [place] [address] May, [facility] [place] [facility] [address] [id number] [place] [address] May, [facility] [place] [facility] [address] [id number] [place] [address] May, [facility] [place] [facility] [address] [facility] [id number] [place] [address] May, [facility] [place] [facility] [address] [id number] [place] [address] May, [facility] [place] [facility] [address] [id number] [address] 30 Apr, 2013 [facility] [place] [facility] [address] [id number] [place] [address] 30 Apr, 2013 [facility] [place] [facility] [address] [id number] [place] [address] 29 Apr, 2013 [facility] [place] [facility] [address] [id number] [place] [address] Apr, [facility] [place] [facility] [address] [id number] [place] [address] Apr, [facility] [place] [facility] [address] [id number] [place] [address] Apr, [facility] [place] [facility] [address] [id number] [place] [address] Feb, [facility] [place] [facility] [address] [id number] [place] [address] Feb, [facility] [place] [facility] [address] [id number] [place] [address] Feb, [facility] [place] [facility] [address] [id number] [place] [address] Feb, [facility] [place] [facility] [address] [id number] [place] [address] Feb, [facility] [place] [facility] [address] [id number] [place] [address] Feb, [facility] [place] [facility] [address] [id number] [place] [address] Jan, [facility] [place] [facility] [address] [id number] [place] [address] Jan, [facility] [place] [facility] [address] [id number] [place] [address] Jan, [facility] [place] [facility] [address] [id number] [place] [address] Jan, [facility] [place] [facility] [address] [id number] [place] [address] Jan, [facility] [place] [facility] [address] [id number] [place] [address] Jan, [facility] [place] [facility] [address] [id number] [place] [address] Jan, [facility] [place] [facility] [address] [id number] [place] [address] Jan, [facility] [place] [facility] [address] [id number] [place] [address] December, [facility] [place] [facility] [address] [id number] [place] [address] December, [facility] [place] [facility] [address] [id number] [place] [address] December, [facility] [place] [facility] [address] [id number] [place] [address] December, [facility] [place] [facility] [address] [id number] [place] [address] Nov, [facility] [place] [facility] [address] [id number] [place] [address] Nov, [facility] [place] [facility] [address] [id number] [place] [address] Nov, [facility] [place] [facility] [address] [id number] [place] [address] Nov, [facility] [place] [facility] [address] [id number] [place] [address] Nov, [facility] [place] [facility] [address] [id number] [place] [address] Nov, [facility] [place] [facility] [address] [id number] [place] [address] Nov, [facility] [place] [facility] [address] [id number] [place] [address] Nov, [facility] [place] [facility] [address] [id number] [place] [address] Oct, [facility] [place] [facility] [address] [id number] [place] [address] Oct, [facility] [place] [facility] [address] [id number] [place] [address] Sep, [facility] [place] [facility] [address] [id number] [place] [address] Sep, [facility] [address] [id number] [place] [id number] Sep, [facility] [place] [facility] [address] [id number] [place] [address] Sep, [facility] [place] [facility] [address] [id number] [place] [address] Sep, [facility] [place] [facility] [address] [id number] [place] [address] Sep, [facility] [place] [facility] [address] [id number] [place] [address] Aug, [facility] [place] [facility] [address] [id number] [place] [address] Aug, [facility] [place] [facility] [address] [id number] [place] [address] Aug, [facility] [address] [id number] [place] [address] Aug, [facility] [address] [id number] [place] [address] Jul, [facility] [address] [id number] [place] [address] Jul, [facility] [place] [facility] [address] [id number] [place] [address] Jul, [facility] [place] [facility] [address] [id number] [place] [address] Jul, [facility] [place] [facility] [address] [id number] [place] [address] Jun, [facility] [place] [facility] [address] [id number] [place] [address] Jun, [facility] [place] [facility] [address] [id number] [place] [address] May, [facility] [place] [facility] [address] [id number] [place] [address] May, [facility] [place] [facility] [address] [id number] [place] [address] May, [facility] [place] [facility] [address] [id number] [place] [address] May, [facility] [place] [facility] [address] [id number] [place] [address] May, [facility] [place] [facility] [address] [id number] [place] [address] Apr, [facility] [place] [facility] [address] [id number] [place] [address] Apr, [facility] [place] [facility] [address] [id number] [place] [address] Mar, [facility] [place] [facility] [address] [id number] [place] [address] Mar, [facility] [place] [facility] [address] [id number] [place] [address] Mar, [facility] [place] [facility] [address] [id number] [place] [address] Mar, [facility] [place] [facility] [address] [id number] [address] Feb, [facility] [place] [facility] [address] [id number] [address] Feb, [facility] [place] [facility] [address] [id number] [place] [address] 16 Feb, 2013 [facility] [place] [facility] [address] [id number] [place] [address] Feb, [facility] [place] [facility] [address] [id number] [place] [address] Feb, [facility] [place] [facility] [address] [id number] [place] [address] Jan, [facility] [address] [id number] [place] [address] Jan, [facility] [address] [id number] [place] [address] Jan, [facility] [address] [id number] [place] [address] Jan, [facility] [address] [id number] [place] [address] Jan, [facility] [address] [id number] [place] [address] December, [facility] [address] [id number] [place] [address] December, [facility] [address] [id number] [place] [address] Nov, [facility] [address] [id number] [place] [address] Nov, [facility] [address] [id number] [place] [address] Oct, [facility] [address] [id number] [place] [address] Oct, [facility] [address] [id number] [place] [address] 05 Oct, 2012 [facility] [address] [id number] [place] [address] 14 Sep, 2012 [facility] [place] [facility] [address] [id number] [place] [address] 24 Aug, 2012 [facility] [place] [facility] [address] [id number] [place] [address] 16 Aug, 2012 [facility] [place] [facility] [address] [id number] [place] [address] Aug, [facility] [place] [facility] [address] [id number] [place] [address] Aug, [facility] [address] [id number] [place] [address] Jul, [facility] [address] [id number] [place] [address] Jul, [facility] [place] [facility] [address] [id number] [place] [address] Jul, [facility] [address] [id number] [place] [address] Jul, [facility] [address] [id number] [place] [address] Jul, [facility] [address] [id number] [place] [address] Jul, [facility] [address] [id number] [place] [address] Jul, [facility] [address] [id number] [place] [address] Jul, [facility] [address] [id number] [place] [address] Jun, [facility] [place] [facility] [address] [id number] [place] [address] Jun, [facility] [place] [facility] [address] [id number] [address] Jun, [facility] [place] [facility] [address] [id number] [place] [address] Jun, [facility] [place] [facility] [address] [id number] [place] [address] Jun, [facility] [place] [facility] [address] [id number] [place] [address] Jun, [facility] [place] [facility] [address] [id number] [place] [address] May, [facility] [place] [facility] [address] [id number] [place] [address] May, [facility] [place] [facility] [address] [id number] [place] [address] May, [facility] [place] [facility] [address] [id number] [place] [address] May, [facility] [place] [facility] [address] [id number] [place] [address] Apr, [facility] [place] [facility] [address] [id number] [place] [address] 06 Apr, 2012 [facility] [place] [facility] [address] [id number] [place] [address] Mar, [facility] [place] [facility] [address] [id number] [place] [address] Jan, [facility] [place] [facility] [address] [id number] [place] [address] 20 Jan, 2012 [facility] [place] [facility] [address] [id number] [place] [address] 16 Jan, 2012 [facility] [place] [facility] [address] [id number] [place] [address] 15 Jan, 2012 [facility] [place] [facility] [address] [id number] [place] [address] Jan, [facility] [place] [facility] [address] [id number] [place] [address] 14 Jan, 2012 [facility] [place] [facility] [address] [id number] [place] [address] 07 Jan, 2012 [facility] [place] [facility] [address] [id number] [place] [address] December, [facility] [place] [facility] [address] [id number] [place] [address] December, [facility] [place] [facility] [address] [id number] [place] [address] December, [facility] [address] [id number] [place] [address] December, [facility] [place] [facility] [address] [id number] [place] [address] Nov, [facility] [address] [id number] [place] [address] Nov, [facility] [address] [id number] [place] [address] Oct, [facility] [address] [id number] [place] [address] Oct, [facility] [address] [id number] [place] [address] Oct, [facility] [address] [id number] [place] [address] Sep, [facility] [address] [id number] [place] [address] Sep, [facility] [address] [id number] [place] [address] Sep, [facility] [address] [id number] [place] [address] Aug, [facility] [address] [id number] [place] [address] Aug, [facility] [address] [id number] [place] [address] Aug, [facility] [place] [facility] [address] [id number] [place] [address] Aug, [facility] [place] [facility] [address] [id number] [place] [address] Aug, [facility] [place] [facility] [address] [id number] [place] [address] Aug, [facility] [place] [facility] [address] [id number] [place] [address] Aug, [facility] [place] [facility] [address] [id number] [place] [address] Jul, [facility] [place] [facility] [address] [id number] [place] [address] Jul, [facility] [place] [facility] [address] [id number] [place] [address] Jun, [facility] [place] [facility] [address] [id number] [place] [address] 28 Jun, 2011 [facility] [place] [facility] [address] [id number] [place] [address] 17 Jun, 2011 [facility] [place] [facility] [address] [id number] [place] [address] 15 Jun, 2011 [facility] [place] [facility] [address] [id number] [place] [address] 14 Jun, 2011 [facility] [place] [facility] [address] [id number] [place] [address] 14 Jun, 2011 [facility] [place] [facility] [address] [id number] [place] [address] Jun, [facility] [place] [facility] [address] [id number] [address] Jun, [facility] [place] [facility] [address] [id number] [place] [address] Jun, [facility] [place] [facility] [address] [id number] [place] [address] Jun, [facility] [place] [facility] [address] [id number] [place] [address] May, [facility] [place] [facility] [address] [id number] [place] [address] May, [facility] [place] [facility] [address] [id number] [place] [address] 25 May, 2011 [facility] [address] [id number] [place] [address] 24 May, 2011 [facility] [place] [facility] [address] [id number] [place] [address] 18 May, 2011 [facility] [address] [id number] [place] [address] 13 May, 2011 [facility] [place] [facility] [address] [id number] [place] [address] 13 Feb, 2011 [facility] [address] [id number] [place] [address] December, [facility] [place] [facility] [address] [id number] [place] [address] 29 Jul, 2010 [facility] [address] [id number] [place] [address] 29 Jul, 2010 [facility] [place] [facility] [address] [id number] [place] [address] 22 Jul, 2010 [facility] [place] [facility] [address] [id number] [place] [address] 21 Jul, 2010 [facility] [address] [facility] [id number] [place] [address] 15 Jun, 2010 [facility] [place] [facility] [address] [id number] [place] [address] 31 Jul, 2009 [facility] [place] [facility] [address] [id number] [place] [address] 23 Jul, 2009 [facility] [place] [facility] [address] [id number] [place] [address] 23 Jul, 2009 [facility] [place] [facility] [address] [id number] [place] [address] 17 Jul, 2009 [facility] [place] [facility] [address] [id number] [place] [address] 17 Jul, 2009 [facility] [address] [facility] [id number] [place] [address] Jul, [facility] [address] [facility] [id number] [place] [address] Jan, [facility] [address] [facility] [id number] [place] [address] Sep, [facility] [address] [facility] [id number] [place] [address] Sep, IMMUNIZATIONS Vaccine Route Administration Date Status FLULAVAL QUAD 0.5ML (6 MO & UP) 2018 IM Intramuscular Jun 01, 2018 Administered SOCIAL HISTORY Never Assessed REASON FOR VISIT FLU SHOT PLAN OF CARE VITAL SIGNS MEDICATIONS Unknown Medications RESULTS No Results PROCEDURES Procedure Date Ordered Result Body Site FLULAVAL QUAD 0.5ML (6 MO AND UP) 2018 Jun 01, 2018 SINGLE IMMUNIZATION ADMIN Jun 01, 2018 INSTRUCTIONS MEDICATIONS ADMINISTERED No [...]
--- OUTSIDE RECORDS SUMMARY | 2019-01-22 20:45 | XMS REPORT ---
Author Author KVNG MERCHANT [facility] Address [address] [place] [address] Care Team Providers Care Supervisor Evaporator Name Role Phone KVNG MERCHANT Unavailable PROBLEMS Type Condition ICD9-CM Code KRS28-CJ Code Onset Dates Condition Status SNOMED Code Problem Family history of diabetes mellitus Z83.3 Active 038533552 Problem Hot flashes N95.1 Active 566230190 Problem Excessive and frequent menstruation with irregular cycle N92.1 Active 471873345 Problem Diverticulitis K57.92 Active 803115135 Problem Gastroesophageal reflux disease with esophagitis K21.0 Active 905632900 Problem Mitral valve prolapse I34.1 Active 394563451 Problem Perimenopausal N95.1 Active 385587617812739 Problem Tachycardia R00.0 Active 8275683 Problem Abnormal uterine bleeding (AUB) N93.9 Active 05773993361708 Problem History of diverticulitis Z87.19 Active 218796279931388 Problem History of colon polyps Z86.010 Active 476383479 Problem Generalized anxiety disorder F41.1 Active 802696882 Problem Dense breast tissue R92.2 Active 578874921 Problem Hypertension I10 Active 38692594 Problem History of ovarian cyst Z87.42 Active 37996440 ALLERGIES No Information ENCOUNTERS Encounter Location Date Diagnosis [facility] [address] [facility] [id number], [place] [address] Jun, [facility] [address] [facility] [id number], [place] [address] May, [facility] [address], [place] [address] May, [facility] [address] [id number] [address] Apr, Generalized anxiety disorder F41.1 and Bereavement Z63.4 [facility] [address], [place] [address] 17 Apr, 2018 [facility] [id number] [place] [address] Apr, Diverticulitis K57.92 [facility] [id number] [place] [address] Apr, Generalized anxiety disorder F41.1 and Bereavement Z63.4 [facility] [id number] [place] [address] Mar, [facility] [id number] [place] [address] Mar, Diverticulitis K57.92 [facility] [id number] [place] [address] Mar, Generalized anxiety disorder F41.1 and Bereavement Z63.4 [facility] [id number] [place] [address] Mar, Hypertension I10 [facility] [id number] [place] [address] Mar, Generalized anxiety disorder F41.1 and Bereavement Z63.4 [facility] [id number] [place] [address] Feb, Generalized anxiety disorder F41.1 and Bereavement Z63.4 [facility] [address] [address] Feb, [facility] [id number] [place] [address] Feb, Generalized anxiety disorder F41.1 and Bereavement Z63.4 [facility] [id number] [place] [address] Feb, Generalized anxiety disorder F41.1 and Bereavement Z63.4 [facility] [address] [id number] [address] Jan, Hypertension I10 and Acute non-recurrent maxillary sinusitis J01.00 [facility] [id number] [place] [address] December, [facility] [id number] [place] [address] December, Hypertension I10 [facility] [id number] [place] [address] December, Generalized anxiety disorder F41.1 [facility] [id number] [place] [address] Oct, Encounter for dental examination Z01.20 [facility] [id number] [place] [address] Oct, Encounter for dental examination Z01.20 [facility] [id number] [place] [address] Oct, Dental examination Z01.20 [facility] [id number] [place] [address] Oct, Generalized anxiety disorder F41.1 [facility] [id number] [place] [address] Aug, Dental examination Z01.20 [facility] [id number] [place] [address] Aug, Generalized anxiety disorder F41.1 [facility] [id number] [place] [address] Aug, [facility] [id number] [place] [address] Aug, Encounter for dental examination Z01.20 [facility] [id number] [place] [address] Aug, Subacute maxillary sinusitis J01.00 [facility] [address] [id number], [place] [address] Jul, Dental examination Z01.20 [facility] [address] [id number], [place] [address] 19 Jul, 2017 Generalized anxiety disorder F41.1 [facility] [address] [id number], [place] [address] Jul, Diverticulitis K57.92 [facility] [id number] [place] [address] 28 Jun, 2017 Encounter for immunization Z23 [facility] [id number] [place] [address] Jun, Dental examination Z01.20 [facility] [address] [id number], [place] [address] 14 Jun, 2017 Generalized anxiety disorder F41.1 [facility] [address] [id number], [place] [address] 07 Jun, 2017 Dental examination Z01.20 [facility] [address] [id number], [place] [address] May, [facility] [address] [id number][place] [id number] May, Dental examination Z01.20 [facility] [id number] [place] [id number] May, Dental examination Z01.20 [facility] [address] [id number], [place] [address] May, Dental examination Z01.20 [facility] [address] [id number], [place] [address] May, [facility] [address] [facility] [id number], [place] [address] May, Generalized anxiety disorder F41.1 [facility] [address], [place] [address] May, Localized edema R60.0 ; Yeast vaginitis B37.3 and Gastroesophageal reflux disease with esophagitis K21.0 [facility] [id number] [place] [id number] Apr, Dental examination Z01.20 [facility] [id number] [place] [address] Apr, Dental examination Z01.20 [facility] [id number] [place] [address] Apr, Dental examination Z01.20 [facility] [id number] [place] [address] Mar, Dyspepsia R10.13 [facility] [id number] [place] [address] Mar, Generalized anxiety disorder F41.1 [facility] [id number] [place] [address] Mar, Encounter for dental examination Z01.20 [facility] [id number] [place] [id number] Mar, [facility] [id number] [place] [id number] Mar, Dental examination Z01.20 [facility] [address] [place] [address] Feb, Hypertension I10 and Tachycardia R00.0 [facility] [id number] [place] [address] Feb, [facility] [id number] [place] [address] Feb, Generalized anxiety disorder F41.1 [facility] [id number] [place] [address] [id number] Feb, Dental examination Z01.20 [facility] [address], [place] [address] Jan, Generalized anxiety disorder F41.1 [facility] [id number] [place] [address] December, Generalized anxiety disorder F41.1 [facility] [id number] [place] [id number] December, Encounter for dental examination Z01.20 [facility] [id number] [place] [address] Nov, [facility] [id number] [place] [address] Nov, [facility] [id number] [place] [address] Nov, Generalized anxiety disorder F41.1 [facility] [id number] [place] [address] Oct, [facility] [address] [place] [address] [id number] Oct, Dental examination Z01.20 [facility] [id number] [place] [address] Oct, Vaginal dryness N89.8 [facility] [address] [place] [address] Oct, Pseudoseizures F44.5 [facility] [address] [place] [address] Oct, Generalized anxiety disorder F41.1 [facility] [address] [place] [address] 28 Sep, 2016 Abnormal uterine bleeding (AUB) N93.9 ; Vaginal dryness N89.8 and Screening breast examination Z12.39 [facility] [address] [place] [address] Sep, Dental examination Z01.20 [facility] [id number] [place] [address] Sep, Generalized anxiety disorder F41.1 [facility] [id number] [place] [address] 06 Sep, 2016 Unspecified ovarian cyst, right side N83.201 ; Unspecified ovarian cyst, left side N83.202 ; Yeast infection of the vagina B37.3 ; Mitral valve prolapse I34.1 and Hypertension I10 [facility] [id number] [place] [address] Aug, Generalized anxiety disorder F41.1 [place] [address] [address] Jul, [place] [address] [address] Jul, Generalized anxiety disorder F41.1 [facility] [address] [address] Jun, Generalized anxiety disorder F41.1 [facility] [address] [address] May, Encounter for immunization Z23 [facility] [address] [address] 17 May, 2016 Generalized anxiety disorder F41.1 and Depressive disorder, not elsewhere classified F32.9 [facility] [id number] [place] [address] Apr, Hypertension I10 [facility] [id number] [place] [address] 22 Apr, 2016 Cervicalgia M54.2 [facility] [id number] [place] [address] 12 Apr, 2016 Cervicalgia M54.2 [facility] [id number] [place] [address] Mar, Generalized anxiety disorder F41.1 and Depressive disorder, not elsewhere classified F32.9 [facility] [address] [place] [id number] 14 Feb, 2016 Visit for dental examination Z01.20 [facility] [id number] [place] [address] Feb, Pseudoseizures F44.5 ; Migraine without status migrainosus, not intractable, unspecified migraine type G43.909 and Essential hypertension I10 [facility] [address] [place] [id number] 06 Feb, 2016 Dental examination Z01.20 [facility] [address] [address] Feb, Generalized anxiety disorder F41.1 and Depressive disorder, not elsewhere classified F32.9 [facility] [id number] [place] [address] Jan, Tachycardia R00.0 [facility] [id number] [place] [address] December, Eustachian tube dysfunction, bilateral H69.83 [facility] [id number] [place] [address] December, Generalized anxiety disorder F41.1 and Depressive disorder, not elsewhere classified F32.9 [facility] [id number] [place] [address] Nov, [facility] [id number] [place] [address] Nov, [facility] [id number] [place] [address] Nov, Hypertension I10 ; Onychomycosis B35.1 ; [...] and Complex cyst of left ovary N83.29 [place] [id number] [place] [address] 14 Nov, 2015 Sinusitis J32.9 [place] [address] [address] Oct, Complex cyst of left ovary N83.[address] [address] Oct, Onychomycosis B35.1 [facility] [address] [id number] Oct, Dental examination Z01.[address] [address] Oct, Well woman exam Z01.419 ; Encounter for [...] R92.2 and History of colon polyps Z86.010 [place] [address] [place] [address] Oct, Generalized anxiety disorder F41.1 and Depressive disorder, not elsewhere classified F32.[address] [address] Sep, Hypertension I10 and Onychomycosis B35.[address] [address] 16 Sep, 2015 Skin tags, multiple acquired L91.8 [facility] [address] [place] [address] Aug, [facility] [id number] [place] [address] Aug, [facility] [id number] [place] [address] Aug, [facility] [id number] [place] [address] Aug, Generalized anxiety disorder F41.1 and Depressive disorder, not elsewhere classified F32.9 [facility] [id number] [place] [address] Jul, Skin lesion L98.9 [facility] [id number] [place] [address] Jun, Generalized anxiety disorder F41.1 and Depressive disorder, not elsewhere classified F32.9 [facility] [id number] [place] [address] Jun, [facility] [id number] [place] [address] Jun, Generalized anxiety disorder F41.1 [facility] [id number] [place] [address] May, Encounter for immunization Z23 and Right shoulder pain M25.511 [facility] [address] [place] [address] Apr, [facility] [address] [place] [address] 14 Apr, 2015 Generalized anxiety disorder 300.02 and Depressive disorder, not elsewhere classified 311 [facility] [address] [place] [id number] Mar, Dental examination V72.2 [facility] [address] [place] [address] Mar, Generalized anxiety disorder 300.02 and Depressive disorder, not elsewhere classified 311 [facility] [address], [place] [address] Mar, Depression, major, recurrent, 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.35 and 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 [facility] [address], [place] [address] Feb, Generalized anxiety disorder 300.02 and Depressive disorder, not elsewhere classified 311 [facility] [address] [id number] Feb, Dental examination V72.2 [facility] [id number] [place] [address] Jan, Generalized anxiety disorder 300.02 and Depressive disorder, not elsewhere classified 311 [facility] [address], [place] [address] Jan, [facility] [id number] [place] [address] December, Generalized anxiety disorder 300.02 and Depressive disorder, not elsewhere classified 311 [facility] [address] [place] [address] December, Major depressive disorder, recurrent, unspecified 296.30 and Panic disorder with agoraphobia 300.21 [facility] [address], [place] [address] Nov, [facility] [id number] [address] Nov, [facility] [address], [place] [address] Oct, [facility] [address], [place] [address] Oct, [facility] [address], [place] [address] Oct, [facility] [address] [place] [address] Oct, [facility] [place] [facility] [address] [id number] [place] [address] Sep, 2014 [facility] [place] [facility] [address] [id number] [place] [address] Sep, 2014 [facility] [place] [facility] [address] [id number] [place] [address] Sep, 2014 [facility] [place] [facility] [address] [id number] [place] [address] Sep, 2014 [facility] [place] [facility] [address] [id number] [place] [address] Sep, 2014 [facility] [place] [facility] [address] [facility] [id number] [place] [address] Sep, 2014 [facility] [place] [facility] [address] [facility] [id number] [place] [address] Sep, 2014 [facility] [place] [facility] [address] [facility] [id number] [place] [address] Sep, [facility] [place] [facility] [address] [facility] [id number] [place] [address] Sep, [facility] [place] [facility] [address] [facility] [id number] [place] [address] Sep, [facility] [place] [facility] [address] [facility] [id number], [place] [address] Aug, [facility] [place] [facility] [address] [id number] [place] [address] Aug, [facility] [place] [facility] [address] [id number] [place] [address] Jul, [facility] [place] [facility] [address] [facility] [id number], [place] [address] Jul, [facility] [place] [facility] [address] [facility] [id number], [place] [address] Jul, [facility] [place] [facility] [address] [id number] [place] [address] Jul, [facility] [place] [facility] [address] [id number] [place] [address] Jul, [facility] [place] [facility] [address] [id number] [place] [address] Jul, [facility] [place] [facility] [address] [id number] [place] [address] Jul, [facility] [place] [facility] [address] [id number] [place] [address] Jul, [facility] [place] [facility] [address] [id number] [place] [address] Jul, [facility] [place] [facility] [address] [id number] [place] [address] Jul, [facility] [place] [facility] [address] [id number] [place] [address] Jul, [facility] [place] [facility] [address] [id number] [place] [address] Jul, [facility] [place] [facility] [address] [id number] [place] [address] Jun, [facility] [place] [facility] [address] [id number], [place] [address] Jun, [facility] [place] [facility] [address] [id number], [place] [address] May, [facility] [place] [facility] [address] [id number] [place] [address] May, [facility] [place] [facility] [address] [id number] [place] [address] May, [facility] [place] [facility] [address] [id number] [place] [address] May, [facility] [place] [facility] [address] [id number] [place] [address] May, [facility] [place] [facility] [address] [id number] [place] [address] May, [facility] [place] [facility] [address] [id number] [place] [address] May, [facility] [place] [facility] [address] [id number] [place] [address] May, 2013 [facility] [place] [facility] [address] [id number] [place] [address] May, [facility] [place] [facility] [address] [id number] [place] [address] May, [facility] [place] [facility] [address] [id number] [place] [address] May, [facility] [place] [facility] [address] [id number] [place] [address] May, [facility] [place] [facility] [address] [id number] [place] [address] 30 Apr, 2014 [facility] [place] [facility] [address] [id number] [place] [address] 30 Apr, 2013 [facility] [place] [facility] [address] [id number] [place] [address] 29 Apr, 2014 [facility] [place] [facility] [address] [id number] [place] [address] 29 Apr, 2013 [facility] [place] [facility] [address] [id number] [place] [address] Apr, [facility] [place] [facility] [address] [id number] [place] [address] Apr, [facility] [place] [facility] [address] [id number] [place] [address] Feb, [facility] [place] [facility] [address] [id number] [place] [address] Feb, [facility] [place] [facility] [address] [id number] [place] [address] Feb, [facility] [place] [facility] [address] [id number] [place] [address] Feb, [facility] [place] [facility] [address] [id number] [place] [address] Feb, [facility] [place] [facility] [address] [id number] [place] [address] Feb, [facility] [place] [facility] [address] [id number] [place] [address] Jan, [facility] [place] [facility] [address] [id number] [place] [address] Jan, [facility] [place] [facility] [address] [id number] [place] [address] Jan, [facility] [place] [facility] [address] [id number] [place] [address] Jan, [facility] [place] [facility] [address] [id number] [place] [address] Jan, [facility] [place] [facility] [address] [id number] [place] [address] Jan, [facility] [place] [facility] [address] [id number] [place] [address] Jan, [facility] [place] [facility] [address] [id number] [place] [address] Jan, [facility] [place] [facility] [address] [id number] [place] [address] December, [facility] [place] [facility] [address] [id number] [place] [address] December, [facility] [place] [facility] [address] [id number] [place] [address] December, [facility] [place] [facility] [address] [id number] [place] [address] December, [facility] [place] [facility] [address] [id number] [place] [address] Nov, [facility] [place] [facility] [address] [id number] [place] [address] Nov, [facility] [place] [facility] [address] [id number] [place] [address] Nov, [facility] [place] [facility] [address] [id number] [place] [address] Nov, [facility] [place] [facility] [address] [id number] [place] [address] Nov, [facility] [place] [facility] [address] [id number] [place] [address] Nov, [facility] [place] [facility] [address] [id number] [place] [address] Nov, [facility] [place] [facility] [address] [id number] [place] [address] Nov, [facility] [place] [facility] [address] [id number] [place] [address] Oct, [facility] [place] [facility] [address] [facility] [id number] [place] [address] Oct, [facility] [place] [facility] [address] [id number] [place] [address] Sep, [facility] [place] [facility] [address] [id number] [place] [address] Sep, [facility] [place] [facility] [address] [id number] [place] [id number] Sep, [facility] [place] [facility] [address] [facility] [id number] [place] [address] Sep, [facility] [place] [facility] [address] [facility] [id number] [place] [address] 14 Sep, 2013 [facility] [place] [facility] [address] [id number] [place] [address] 14 Sep, 2013 [facility] [place] [facility] [address] [id number] [place] [address] Aug, [facility] [place] [facility] [address] [id number] [place] [address] Aug, [facility] [place] [facility] [address] [id number] [place] [address] Aug, [facility] [place] [facility] [address] [id number] [place] [address] Aug, [facility] [place] [facility] [address] [id number] [place] [address] Jul, [facility] [place] [facility] [address] [id number] [place] [address] Jul, [facility] [place] [facility] [address] [id number] [place] [address] Jul, [facility] [place] [facility] [address] [id number] [place] [address] Jul, [facility] [place] [facility] [address] [id number] [place] [address] Jun, [facility] [place] [facility] [address] [id number] [place] [address] Jun, [facility] [place] [facility] [address] [id number], [place] [address] May, [facility] [place] [facility] [address] [id number] [place] [address] May, [facility] [place] [facility] [address] [id number] [place] [address] May, [facility] [place] [facility] [address] [id number], [place] [address] May, [facility] [place] [facility] [address] [id number], [place] [address] May, [facility] [place] [facility] [address] [id number] [place] [address] 17 Apr, 2013 [facility] [place] [facility] [address] [id number] [place] [address] Apr, [facility] [place] [facility] [address] [id number] [place] [address] Mar, [facility] [place] [facility] [address] [id number] [place] [address] Mar, [facility] [place] [facility] [address] [id number] [place] [address] Mar, [facility] [place] [facility] [address] [id number] [place] [address] Mar, [facility] [place] [facility] [address] [id number] [place] [address] Feb, [facility] [place] [facility] [address] [id number] [place] [address] Feb, [facility] [place] [facility] [address] [id number] [place] [address] Feb, [facility] [place] [facility] [address] [id number] [place] [address] Feb, [facility] [place] [facility] [address] [id number] [place] [address] Feb, [facility] [place] [facility] [address] [id number] [place] [address] Jan, [facility] [place] [facility] [address] [id number] [place] [address] Jan, [facility] [place] [facility] [address] [id number] [place] [address] 14 Jan, 2013 [facility] [place] [facility] [address] [id number] [place] [address] Jan, [facility] [place] [facility] [address] [id number] [place] [address] 06 Jan, 2013 [facility] [address] [id number] [place] [address] December, [facility] [address] [id number] [place] [address] December, [facility] [address] [id number] [place] [address] Nov, [facility] [address] [id number] [place] [address] Nov, [facility] [address] [id number] [place] [address] Oct, [facility] [address] [id number] [place] [address] Oct, [facility] [address] [id number] [place] [address] Oct, [facility] [address] [id number] [place] [address] 14 Sep, 2012 [facility] [address] [id number] [place] [address] Aug, [facility] [address] [id number] [place] [address] Aug, [facility] [address] [id number] [place] [address] 15 Aug, 2012 [facility] [address] [id number] [place] [address] Aug, [facility] [address] [id number] [place] [address] Jul, [facility] [address] [id number] [place] [address] Jul, [facility] [address] [id number] [place] [address] Jul, [facility] [place] [facility] [address] [id number] [place] [address] Jul, [facility] [place] [facility] [address] [id number] [place] [address] Jul, [facility] [place] [facility] [address] [id number] [place] [address] Jul, [facility] [place] [facility] [address] [id number] [place] [address] Jul, [facility] [place] [facility] [address] [id number] [place] [address] Jul, [facility] [place] [facility] [address] [id number] [place] [address] Jun, [facility] [place] [facility] [address] [facility] [id number] [place] [address] Jun, [facility] [place] [facility] [address] [id number], [place] [address] Jun, [facility] [place] [facility] [address] [id number], [place] [address] Jun, [facility] [place] [facility] [address] [facility] [id number], [place] [address] Jun, [facility] [place] [facility] [address] [id number], [place] [address] Jun, [facility] [place] [facility] [address] [id number], [place] [address] May, [facility] [place] [facility] [address] [id number], [place] [address] May, [facility] [place] [facility] [address] [id number], [place] [address] May, [facility] [place] [facility] [address] [facility] [id number], [place] [address] May, [facility] [place] [facility] [address] [id number] [place] [address] 26 Apr, 2012 [facility] [place] [facility] [address] [id number] [place] [address] 06 Apr, 2012 [facility] [place] [facility] [address] [id number] [place] [address] 08 Mar, 2012 [facility] [place] [facility] [address] [id number] [place] [address] 28 Jan, 2012 [facility] [place] [facility] [address] [id number] [place] [address] 20 Jan, 2012 [facility] [place] [facility] [address] [id number] [place] [address] 16 Jan, 2012 [facility] [place] [facility] [address] [id number] [place] [address] 15 Jan, 2012 [facility] [address] [id number] [place] [address] 14 Jan, 2012 [facility] [place] [facility] [address] [id number] [place] [address] 14 Jan, 2012 [facility] [place] [facility] [address] [id number] [place] [address] 07 Jan, 2012 [facility] [place] [facility] [address] [id number] [place] [address] December, [facility] [place] [facility] [address] [id number] [place] [address] December, [facility] [place] [facility] [address] [id number] [place] [address] December, [facility] [place] [facility] [address] [id number] [place] [address] December, [facility] [place] [facility] [address] [id number] [place] [address] Nov, [facility] [place] [facility] [address] [id number] [place] [address] 05 Nov, 2011 [facility] [place] [facility] [address] [id number] [place] [address] 29 Oct, 2011 [facility] [place] [facility] [address] [id number] [place] [address] 28 Oct, 2011 [facility] [place] [facility] [address] [id number] [place] [address] 15 Oct, 2011 [facility] [place] [facility] [address] [id number] [place] [address] Sep, [facility] [place] [facility] [address] [id number] [place] [address] Sep, [facility] [place] [facility] [address] [id number] [place] [address] Sep, [facility] [place] [facility] [address] [id number] [place] [address] Aug, [facility] [place] [facility] [address] [id number] [place] [address] Aug, [facility] [place] [facility] [address] [id number] [place] [address] Aug, [facility] [place] [facility] [address] [id number] [place] [address] Aug, [facility] [place] [facility] [address] [id number] [place] [address] Aug, [facility] [place] [facility] [address] [id number] [place] [address] Aug, [facility] [place] [facility] [address] [id number] [place] [address] Aug, [facility] [place] [facility] [address] [id number] [place] [address] Jul, [facility] [place] [facility] [address] [id number] [place] [address] Jul, [facility] [place] [facility] [address] [id number], [place] [address] 30 Jun, 2011 [facility] [place] [facility] [address] [id number] [place] [address] 28 Jun, 2011 [facility] [place] [facility] [address] [id number] [place] [address] 17 Jun, 2011 [facility] [place] [facility] [address] [id number] [place] [address] 15 Jun, 2011 [facility] [place] [facility] [address] [id number] [place] [address] 14 Jun, 2011 [facility] [place] [facility] [address] [id number] [place] [address] 14 Jun, 2011 [facility] [place] [facility] [address] [id number] [place] [address] Jun, [facility] [place] [facility] [address] [id number] [place] [address] Jun, [facility] [place] [facility] [address] [id number] [place] [address] Jun, [facility] [place] [facility] [address] [id number] [place] [address] Jun, [facility] [place] [facility] [address] [id number] [place] [address] 31 May, 2011 [facility] [place] [facility] [address] [id number], [place] [address] 31 May, 2011 [facility] [place] [facility] [address] [id number], [place] [address] 25 May, 2011 [facility] [place] [facility] [address] [id number] [place] [address] 24 May, 2011 [facility] [place] [facility] [address] [id number] [place] [address] 18 May, 2011 [facility] [place] [facility] [address] [id number] [place] [address] 13 May, 2011 [facility] [place] [facility] [address] [id number] [place] [address] 13 Feb, 2011 [facility] [address] [id number] [place] [address] December, [facility] [address] [id number] [place] [address] Jul, [facility] [address] [id number] [place] [address] 29 Jul, 2010 [facility] [address] [id number] [place] [address] Jul, [facility] [address] [id number] [place] [address] Jul, [facility] [address] [id number] [place] [address] Jun, [facility] [address] [id number] [place] [address] 31 Jul, 2009 [facility] [address] [id number] [place] [address] 23 Jul, 2009 [facility] [address] [id number] [place] [address] 23 Jul, 2009 [facility] [address] [facility] [id number] [place] [address] 17 Jul, 2009 [facility] [address] [id number] [place] [address] 17 Jul, 2009 [facility] [address] [id number] [place] [address] 10 Jul, 2009 [facility] [place] [facility] [address] [id number] [place] [address] 15 Jan, 2009 [facility] [place] [facility] [address] [id number] [place] [address] 16 Sep, 2008 [facility] [address] [id number] [place] [address] 11 Sep, 2008 IMMUNIZATIONS No Known Immunizations SOCIAL HISTORY Never Assessed REASON FOR VISIT followup Anxiety/ Grief PLAN OF CARE Activity Details Follow Up 2 Weeks Reason: Follow-up VITAL SIGNS MEDICATIONS Unknown Medications RESULTS No Results PROCEDURES Procedure Date Ordered Result Body Site Psychotherapy, patient &/family, 45 minutes, established patient May 18, 2018 INSTRUCTIONS MEDICATIONS ADMINISTERED No Known Medications [...]
--- OUTSIDE RECORDS SUMMARY | 2019-01-22 20:45 | XMS REPORT ---
Author Author LETTY WILKINS Organization [facility] Address [address] [place] [address] Care Team Providers Care Engineer Automated Equipment Name Role Phone LETTY WILKINS Unavailable PROBLEMS Type Condition ICD9-CM Code QTV99-IE Code Onset Dates Condition Status SNOMED Code Problem Family history of diabetes mellitus Z83.3 Active 819274536 Problem Hot flashes N95.1 Active 820057347 Problem Excessive and frequent menstruation with irregular cycle N92.1 Active 734265465 Problem Diverticulitis K57.92 Active 986023922 Problem Gastroesophageal reflux disease with esophagitis K21.0 Active 510255229 Problem Mitral valve prolapse I34.1 Active 498733609 Problem Perimenopausal N95.1 Active 255130233730922 Problem Tachycardia R00.0 Active 2237649 Problem Abnormal uterine bleeding (AUB) N93.9 Active 80703732308660 Problem History of diverticulitis Z87.19 Active 158076158692919 Problem History of colon polyps Z86.010 Active 062271343 Problem Generalized anxiety disorder F41.1 Active 832446610 Problem Dense breast tissue R92.2 Active 655668285 Problem Hypertension I10 Active 54598617 Problem History of ovarian cyst Z87.42 Active 66587000 ALLERGIES No Information ENCOUNTERS Encounter Location Date Diagnosis [facility] [address] [id number] [address] Jun, [facility] [address] [id number] [address] May, [facility] [address] [id number] [address] May, [facility] [address] [id number] [address] Apr, Generalized anxiety disorder F41.1 and Bereavement Z63.4 [facility] [address] [address] 17 Apr, 2018 [facility] [id number] [place] [address] Apr, Diverticulitis K57.92 [facility] [address], [place] [address] Apr, Generalized anxiety disorder F41.1 and Bereavement Z63.4 [facility] [address] [id number], [place] [address] Mar, [facility] [id number] [place] [address] Mar, Diverticulitis K57.92 [facility] [id number] [place] [address] Mar, Generalized anxiety disorder F41.1 and Bereavement Z63.4 [facility] [address] [place] [address] Mar, Hypertension I10 [facility] [id number] [place] [address] Mar, Generalized anxiety disorder F41.1 and Bereavement Z63.4 [facility] [address], [place] [address] Feb, Generalized anxiety disorder F41.1 and Bereavement Z63.4 [facility] [address], [place] [address] Feb, [facility] [id number] [place] [address] Feb, Generalized anxiety disorder F41.1 and Bereavement Z63.4 [facility] [address] [id number] [address] Feb, Generalized anxiety disorder F41.1 and Bereavement Z63.4 [place] [address], [place] [address] Jan, Hypertension I10 and Acute non-recurrent maxillary sinusitis J01.00 [facility] [id number] [place] [address] December, [facility] [id number] [place] [address] December, Hypertension I10 [facility] [id number] [place] [address] December, Generalized anxiety disorder F41.1 [facility] [id number] [place] [address] Oct, Encounter for dental examination Z01.20 [facility] [id number] [place] [address] Oct, Encounter for dental examination Z01.20 [facility] [id number] [place] [address] Oct, Dental examination Z01.20 [facility] [id number] [place] [address] Oct, Generalized anxiety disorder F41.1 [facility] [address] [id number] [place] [address] Aug, Dental examination Z01.20 [facility] [id number] [place] [address] Aug, Generalized anxiety disorder F41.1 [facility] [id number] [place] [address] Aug, [facility] [address] [id number] [place] [address] Aug, Encounter for dental examination Z01.20 [facility] [address] [place] [address] Aug, Subacute maxillary sinusitis J01.00 [facility] [address] [id number], [place] [address] Jul, Dental examination Z01.20 [facility] [address] [id number] [place] [address] Jul, Generalized anxiety disorder F41.1 [facility] [address] [id number] [place] [address] Jul, Diverticulitis K57.92 [facility] [address] [id number] [place] [address] Jun, Encounter for immunization Z23 [facility] [id number] [place] [address] Jun, Dental examination Z01.20 [facility] [address] [id number] [place] [address] Jun, Generalized anxiety disorder F41.1 [facility] [id number] [place] [address] 07 Jun, 2017 Dental examination Z01.20 [facility] [address] [id number] [place] [address] May, [facility] [address] [id number] [place] [address] [id number] May, Dental examination Z01.20 [facility] [address] [id number] [place] [address] [id number] May, Dental examination Z01.20 [facility] [id number] [place] [address] May, Dental examination Z01.20 [facility] [id number] [place] [address] May, [facility] [address] [id number], [place] [address] May, Generalized anxiety disorder F41.1 [facility] [address] [place] [address] May, Localized edema R60.0 ; Yeast vaginitis B37.3 and Gastroesophageal reflux disease with esophagitis K21.0 [facility] [address] [id number] [place] [address] [id number] Apr, Dental examination Z01.20 [facility] [id number] [place] [address] Apr, Dental examination Z01.20 [facility] [id number] [place] [address] Apr, Dental examination Z01.20 [facility] [id number] [place] [address] Mar, Dyspepsia R10.13 [facility] [id number] [place] [address] Mar, Generalized anxiety disorder F41.1 [facility] [id number] [place] [address] Mar, Encounter for dental examination Z01.20 [facility] [id number] [place] [id number] Mar, [facility] [id number] [place] [address] [id number] Mar, Dental examination Z01.20 [facility] [id number] [place] [address] Feb, Hypertension I10 and Tachycardia R00.0 [facility] [id number] [place] [address] Feb, [facility] [id number] [place] [address] Feb, Generalized anxiety disorder F41.1 [facility] [id number] [place] [address] [id number] Feb, Dental examination Z01.20 [facility] [address], [place] [address] Jan, Generalized anxiety disorder F41.1 [facility] [address] [place] [address] December, Generalized anxiety disorder F41.1 [facility] [address] [place] [address] [phone] December, Encounter for dental examination Z01.20 [facility] [id number] [place] [address] Nov, [facility] [id number] [place] [address] Nov, [facility] [id number] [place] [address] Nov, Generalized anxiety disorder F41.1 [facility] [id number] [place] [address] Oct, [facility] [address] [place] [address] [id number] Oct, Dental examination Z01.20 [facility] [address] [place] [address] Oct, Vaginal dryness N89.8 [facility] [address] [place] [address] Oct, Pseudoseizures F44.5 [facility] [address] [place] [address] Oct, Generalized anxiety disorder F41.1 [facility] [id number] [place] [address] 28 Sep, 2016 Abnormal uterine bleeding (AUB) N93.9 ; Vaginal dryness N89.8 and Screening breast examination Z12.39 [facility] [address] [place] [address] Sep, Dental examination Z01.20 [facility] [id number] [place] [address] Sep, Generalized anxiety disorder F41.1 [facility] [id number] [place] [address] 06 Sep, 2016 Unspecified ovarian cyst, right side N83.201 ; Unspecified ovarian cyst, left side N83.202 ; Yeast infection of the vagina B37.3 ; Mitral valve prolapse I34.1 and Hypertension I10 [facility] [id number] [place] [address] Aug, Generalized anxiety disorder F41.1 [facility] [address] [address] Jul, [facility] [address] [address] Jul, Generalized anxiety disorder F41.1 [facility] [address] [address] Jun, Generalized anxiety disorder F41.1 [facility] [address] [address] 28 May, 2016 Encounter for immunization Z23 [facility] [address] [address] 17 May, 2016 Generalized anxiety disorder F41.1 and Depressive disorder, not elsewhere classified F32.9 [facility] [id number] [place] [address] 28 Apr, 2016 Hypertension I10 [facility] [id number] [place] [address] 22 Apr, 2016 Cervicalgia M54.2 [facility] [id number] [place] [address] 12 Apr, 2016 Cervicalgia M54.2 [facility] [address] [address] Mar, Generalized anxiety disorder F41.1 and Depressive disorder, not elsewhere classified F32.9 [facility] [address] [place] [address] [id number] 14 Feb, 2016 Visit for dental examination Z01.20 [facility] [id number] [place] [address] 11 Feb, 2016 Pseudoseizures F44.5 ; Migraine without status migrainosus, not intractable, unspecified migraine type G43.909 and Essential hypertension I10 [facility] [address] [place] [address] [id number] 06 Feb, 2016 Dental examination Z01.20 [facility] [id number] [place] [address] 05 Feb, 2016 Generalized anxiety disorder F41.1 and Depressive disorder, not elsewhere classified F32.9 [facility] [id number] [place] [address] Jan, Tachycardia R00.0 [facility] [id number] [place] [address] December, Eustachian tube dysfunction, bilateral H69.83 [facility] [id number] [place] [address] December, Generalized anxiety disorder F41.1 and Depressive disorder, not elsewhere classified F32.9 [facility] [id number] [place] [address] Nov, [facility] [id number] [place] [address] Nov, [facility] [id number] [place] [address] Nov, Hypertension I10 ; Onychomycosis B35.1 ; [...] and Complex cyst of left ovary N83.29 [place] [address] [place] [address] 14 Nov, 2015 Sinusitis J32.9 [place] [id number] [place] [address] Oct, Complex cyst of left ovary N83.29 [place] [id number] [place] [address] Oct, Onychomycosis B35.1 [facility] [id number] [place] [address] [id number] Oct, Dental examination Z01.[address] [address] Oct, Well woman exam Z01.419 ; Encounter [...] R92.2 and History of colon polyps Z86.010 [place] [id number] [place] [address] Oct, Generalized anxiety disorder F41.1 and Depressive disorder, not elsewhere classified F32.9 [address] [id number] [place] [address] Sep, Hypertension I10 and Onychomycosis B35.1 [address] [id number] [place] [address] Sep, Skin tags, multiple acquired L91.8 [facility] [address] [place] [address] Aug, [facility] [id number] [place] [address] Aug, [facility] [id number] [place] [address] Aug, [facility] [id number] [place] [address] Aug, Generalized anxiety disorder F41.1 and Depressive disorder, not elsewhere classified F32.9 [facility] [id number] [place] [address] Jul, Skin lesion L98.9 [facility] [id number] [place] [address] Jun, Generalized anxiety disorder F41.1 and Depressive disorder, not elsewhere classified F32.9 [facility] [id number] [place] [address] Jun, [facility] [id number] [place] [address] Jun, Generalized anxiety disorder F41.1 [facility] [id number] [place] [address] May, Encounter for immunization Z23 and Right shoulder pain M25.511 [facility] [address] [place] [address] 28 Apr, 2015 [facility] [address] [place] [address] 14 Apr, 2015 Generalized anxiety disorder 300.02 and Depressive disorder, not elsewhere classified 311 [facility] [address] [id number] Mar, Dental examination V72.2 [facility] [id number] [place] [address] Mar, Generalized anxiety disorder 300.02 and Depressive disorder, not elsewhere classified 311 [facility] [address], [place] [address] Mar, Depression, major, recurrent, 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.35 and 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 [facility] [address], [place] [address] Feb, Generalized anxiety disorder 300.02 and Depressive disorder, not elsewhere classified 311 [facility] [address] [place] [address] [id number] Feb, Dental examination V72.2 [facility] [id number] [place] [address] 09 Jan, 2015 Generalized anxiety disorder 300.02 and Depressive disorder, not elsewhere classified 311 [facility] [id number] [place] [address] Jan, [facility] [id number] [place] [address] December, Generalized anxiety disorder 300.02 and Depressive disorder, not elsewhere classified 311 [facility] [address] [place] [address] December, Major depressive disorder, recurrent, unspecified 296.30 and Panic disorder with agoraphobia 300.21 [facility] [address], [place] [address] Nov, [facility] [address] [place] [address] Nov, [facility] [address] [place] [address] Oct, [facility] [id number] [place] [address] Oct, [facility] [address], [place] [address] Oct, [facility] [place] [facility] [address] [id number] [place] [address] Oct, [facility] [place] [facility] [address] [id number] [place] [address] Sep, 2014 [facility] [place] [facility] [address] [id number] [place] [address] Sep, 2014 [facility] [place] [facility] [address] [id number] [place] [address] Sep, 2014 [facility] [place] [facility] [address] [id number] [place] [address] Sep, 2014 [facility] [place] [facility] [address] [id number] [place] [address] Sep, 2014 [facility] [place] [facility] [address] [id number] [place] [address] Sep, 2014 [facility] [place] [facility] [address] [id number] [place] [address] Sep, 2014 [facility] [place] [facility] [address] [id number] [place] [address] Sep, 2014 [facility] [place] [facility] [address] [id number] [place] [address] Sep, 2014 [facility] [place] [facility] [address] [id number] [place] [address] Sep, 2014 [facility] [place] [facility] [address] [id number], [place] [address] Aug, [facility] [place] [facility] [address] [id number] [place] [address] Aug, [facility] [place] [facility] [address] [id number] [place] [address] Jul, [facility] [place] [facility] [address] [id number] [place] [address] Jul, [facility] [place] [facility] [address] [id number] [place] [address] Jul, [facility] [place] [facility] [address] [id number] [place] [address] Jul, [facility] [place] [facility] [address] [id number] [place] [address] Jul, [facility] [place] [facility] [address] [id number] [place] [address] Jul, [facility] [place] [facility] [address] [id number] [place] [address] Jul, [facility] [place] [facility] [address] [id number] [place] [address] Jul, [facility] [place] [facility] [address] [id number] [place] [address] Jul, [facility] [place] [facility] [address] [id number] [place] [address] Jul, [facility] [place] [facility] [address] [id number] [place] [address] Jul, [facility] [place] [facility] [address] [id number] [place] [address] Jul, [facility] [place] [facility] [address] [facility] [address] [id number] [place] [address] Jun, [facility] [place] [facility] [address] [id number] [place] [address] Jun, [facility] [place] [facility] [address] [id number] [place] [address] May, [facility] [place] [facility] [address] [id number] [place] [address] May, [facility] [place] [facility] [address] [id number] [place] [address] May, [facility] [place] [facility] [address] [id number] [place] [address] May, [facility] [place] [facility] [address] [id number] [place] [address] May, [facility] [place] [facility] [address] [id number] [place] [address] May, [facility] [place] [facility] [address] [id number] [place] [address] May, [facility] [place] [facility] [address] [id number] [place] [address] May, [facility] [place] [facility] [address] [id number] [place] [address] May, [facility] [place] [facility] [address] [id number] [place] [address] May, [facility] [place] [facility] [address] [id number] [place] [address] May, [facility] [place] [facility] [address] [id number] [place] [address] May, [facility] [place] [facility] [address] [id number] [place] [address] Apr, [facility] [place] [facility] [address] [id number] [place] [address] 30 Apr, 2014 [facility] [place] [facility] [address] [id number] [place] [address] 29 Apr, 2014 [facility] [place] [facility] [address] [id number] [place] [address] 29 Apr, 2013 [facility] [place] [facility] [address] [id number] [place] [address] Apr, [facility] [place] [facility] [address] [id number] [place] [address] Apr, [facility] [place] [facility] [address] [id number] [place] [address] Feb, [facility] [place] [facility] [address] [id number] [place] [address] Feb, [facility] [place] [facility] [address] [id number] [place] [address] Feb, [facility] [place] [facility] [address] [id number] [place] [address] Feb, [facility] [place] [facility] [address] [id number] [place] [address] Feb, [facility] [place] [facility] [address] [id number] [place] [address] Feb, [facility] [place] [facility] [address] [id number] [place] [address] Jan, [facility] [place] [facility] [address] [id number] [place] [address] Jan, [facility] [place] [facility] [address] [id number] [place] [address] Jan, [facility] [place] [facility] [address] [id number] [place] [address] Jan, [facility] [facility] [address] [id number] [place] [address] Jan, [facility] [place] [facility] [address] [id number] [place] [address] Jan, [facility] [place] [facility] [address] [id number] [place] [address] Jan, [facility] [place] [facility] [address] [id number] [place] [address] Jan, [facility] [place] [facility] [address] [id number] [place] [address] December, [facility] [place] [facility] [address] [id number] [place] [address] December, [facility] [place] [address] [id number] [place] [address] December, [facility] [address] [id number] [place] [address] December, [facility] [address] [id number] [place] [address] Nov, [facility] [place] [facility] [address] [id number] [place] [address] Nov, [facility] [place] [facility] [address] [id number] [place] [address] Nov, [facility] [place] [facility] [address] [id number] [place] [address] Nov, [facility] [place] [facility] [address] [id number] [place] [address] Nov, [facility] [place] [facility] [address] [id number] [place] [address] Nov, [facility] [address] [id number] [place] [address] Nov, [facility] [address] [id number] [place] [address] Nov, [facility] [address] [id number] [place] [address] Oct, [facility] [address] [id number] [place] [address] Oct, [facility] [address] [id number] [place] [address] Sep, [facility] [address] [id number] [place] [address] Sep, [facility] [address] [id number] [place] [id number] Sep, [facility] [address] [id number] [place] [address] Sep, [facility] [address] [id number] [place] [address] 14 Sep, 2013 [facility] [address] [id number] [place] [address] 14 Sep, 2013 [facility] [address] [id number] [place] [address] Aug, [facility] [address] [id number] [place] [address] Aug, [facility] [address] [id number] [place] [address] Aug, [facility] [address] [id number] [place] [address] Aug, [facility] [address] [id number] [place] [address] Jul, [facility] [address] [id number] [place] [address] Jul, [facility] [address] [id number] [place] [address] Jul, [facility] [address] [id number] [place] [address] Jul, [facility] [address] [id number] [place] [address] Jun, [facility] [address] [id number], [place] [address] Jun, [facility] [address] [id number], [place] [address] May, [facility] [address] [id number] [place] [address] May, [facility] [address] [id number], [place] [address] May, [facility] [address] [id number], [place] [address] May, [facility] [address] [id number] [place] [address] 10 May, 2013 [facility] [address] [id number] [place] [address] 17 Apr, 2013 [facility] [address] [id number] [place] [address] Apr, [facility] [address] [id number] [place] [address] 29 Mar, 2013 [facility] [address] [id number] [place] [address] Mar, [facility] [address] [id number] [place] [address] Mar, [facility] [address] [id number] [place] [address] Mar, [facility] [address] [id number] [place] [address] Feb, [facility] [address] [id number] [place] [address] Feb, [facility] [address] [id number] [place] [address] Feb, [facility] [address] [id number] [place] [address] Feb, [facility] [address] [id number] [place] [address] Feb, [facility] [address] [id number] [place] [address] Jan, [facility] [address] [id number] [place] [address] Jan, [facility] [address] [id number] [place] [address] 14 Jan, 2013 [facility] [address] [id number] [place] [address] Jan, [facility] [address] [id number] [place] [address] Jan, [facility] [address] [id number] [place] [address] December, [facility] [address] [id number] [place] [address] December, [facility] [address] [id number] [place] [address] Nov, [facility] [address] [id number] [place] [address] Nov, [facility] [address] [id number] [place] [address] Oct, [facility] [address] [id number] [place] [address] Oct, [facility] [address] [id number] [place] [address] Oct, [facility] [address] [id number] [place] [address] Sep, [facility] [address] [id number] [place] [address] Aug, [facility] [address] [id number] [place] [address] Aug, [facility] [address] [id number] [place] [address] Aug, [facility] [address] [id number] [place] [address] Aug, [facility] [address] [id number] [place] [address] Jul, [facility] [address] [id number] [place] [address] Jul, [facility] [address] [id number], [place] [address] Jul, [facility] [address] [id number] [place] [address] Jul, [facility] [address] [id number] [place] [address] Jul, [facility] [address] [id number] [place] [address] Jul, [facility] [address] [id number] [place] [address] Jul, [facility] [address] [id number] [place] [address] Jul, [facility] [address] [id number] [place] [address] Jun, [facility] [address] [id number], [place] [address] Jun, [facility] [address] [id number], [place] [address] Jun, [facility] [address] [id number], [place] [address] Jun, [facility] [address] [id number], [place] [address] Jun, [facility] [address] [id number], [place] [address] Jun, [facility] [address] [id number], [place] [address] May, [facility] [address] [id number], [place] [address] May, [facility] [address] [id number], [place] [address] May, [facility] [address] [id number] [place] [address] May, [facility] [address] [id number] [place] [address] 26 Apr, 2012 [facility] [address] [id number] [place] [address] 06 Apr, 2012 [facility] [address] [id number] [place] [address] 08 Mar, 2012 [facility] [address] [id number] [place] [address] 28 Jan, 2012 [facility] [address] [id number] [place] [address] 20 Jan, 2012 [facility] [address] [id number] [place] [address] 16 Jan, 2012 [facility] [address] [id number] [place] [address] 15 Jan, 2012 [facility] [address] [id number] [place] [address] 14 Jan, 2012 [facility] [address] [id number] [place] [address] 14 Jan, 2012 [facility] [address] [id number] [place] [address] 07 Jan, 2012 [facility] [address] [id number] [place] [address] December, [facility] [address] [id number] [place] [address] December, [facility] [address] [id number] [place] [address] December, [facility] [address] [id number] [place] [address] December, [facility] [address] [id number] [place] [address] Nov, [facility] [address] [id number] [place] [address] Nov, [facility] [address] [id number] [place] [address] 29 Oct, 2011 [facility] [address] [id number] [place] [address] 28 Oct, 2011 [facility] [address] [id number] [place] [address] 15 Oct, 2011 [facility] [address] [id number] [place] [address] Sep, [facility] [address] [id number] [place] [address] Sep, [facility] [address] [id number] [place] [address] Sep, [facility] [address] [id number] [place] [address] Aug, [facility] [address] [id number] [place] [address] Aug, [facility] [address] [id number] [place] [address] Aug, [facility] [address] [id number] [place] [address] Aug, [facility] [address] [id number] [place] [address] Aug, [facility] [address] [id number] [place] [address] Aug, [facility] [address] [id number] [place] [address] Aug, [facility] [address] [id number] [place] [address] Jul, [facility] [address] [id number] [place] [address] Jul, [facility] [address] [id number] [place] [address] 30 Jun, 2011 [facility] [address] [id number] [place] [address] 28 Jun, 2011 [facility] [address] [id number] [place] [address] 17 Jun, 2011 [facility] [address] [id number] [place] [address] 15 Jun, 2011 [facility] [address] [id number] [place] [address] 14 Jun, 2011 [facility] [address] [id number] [place] [address], [place] [address] 14 Jun, 2011 [facility] [address] [id number] [place] [address] 07 Jun, 2011 [facility] [address] [facility] [id number] [place] [address] 07 Jun, 2011 [facility] [address] [id number] [place] [address] 02 Jun, 2011 [facility] [address] [id number] [place] [address] 02 Jun, 2011 [facility] [facility] [address] [facility] [id number] [place] [address] 31 May, 2011 [facility] [facility] [address] [id number] [place] [address] 31 May, 2011 [facility] [facility] [address] [id number] [place] [address] 25 May, 2011 [facility] [place] [facility] [address] [id number] [place] [address] 24 May, 2011 [facility] [facility] [address] [facility] [id number] [place] [address] 18 May, 2011 [facility] [facility] [address] [id number], [place] [address] 13 May, 2011 [facility] [facility] [address] [id number] [place] [address] 13 Feb, 2011 [facility] [address] [id number] [place] [address] December, [facility] [address] [id number] [place] [address] Jul, [facility] [address] [id number] [place] [address] Jul, [facility] [address] [id number] [place] [address] Jul, [facility] [address] [id number] [place] [address] Jul, [facility] [address] [id number] [place] [address] Jun, [facility] [address] [id number] [place] [address] Jul, [facility] [address] [id number] [place] [address] Jul, [facility] [address] [id number] [place] [address] 23 Jul, 2009 [facility] [address] [id number] [place] [address] 17 Jul, 2009 [facility] [address] [id number], [place] [address] 17 Jul, 2009 [facility] [address] [id number] [place] [address] 10 Jul, 2009 [facility] [address] [id number] [place] [address] 15 Jan, 2009 [facility] [address] [id number] [place] [address] 16 Sep, 2008 [facility] [address] [id number] [place] [address] Sep, IMMUNIZATIONS No Known Immunizations SOCIAL HISTORY Never Assessed REASON FOR VISIT Rx Request PLAN OF CARE VITAL SIGNS MEDICATIONS Medication Instructions Dosage Frequency Start Date End Date Duration Status Flagyl 500 MG Orally 3 times a day 1 tablet 8h Apr, 7 days Active Cipro 500 MG Orally 2 times a day 1 tablet 12h 05 Nov, 2011 Apr, 7 days Active Hydrochlorothiazide 25 MG Orally Once a day 1 tablet 24h 90 days Active RESULTS No Results PROCEDURES [...]
--- OUTSIDE RECORDS SUMMARY | 2019-01-22 20:46 | XMS REPORT ---
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 Name Role Phone LETTY WILKINS Unavailable PROBLEMS Type Condition ICD9-CM Code NJF15-DL Code Onset Dates Condition Status SNOMED Code Problem Family history of diabetes mellitus Z83.3 Active 652502039 Problem Hot flashes N95.1 Active 912343291 Problem Excessive and frequent menstruation with irregular cycle N92.1 Active 109151437 Problem Diverticulitis K57.92 Active 026582982 Problem Gastroesophageal reflux disease with esophagitis K21.0 Active 592581329 Problem Mitral valve prolapse I34.1 Active 097006310 Problem Perimenopausal N95.1 Active 546940799856680 Problem Tachycardia R00.0 Active 3853582 Problem Abnormal uterine bleeding (AUB) N93.9 Active 35479404987230 Problem History of diverticulitis Z87.19 Active 368391243035808 Problem History of colon polyps Z86.010 Active 166061100 Problem Generalized anxiety disorder F41.1 Active 232330950 Problem Dense breast tissue R92.2 Active 288217812 Problem Hypertension I10 Active 04532545 Problem History of ovarian cyst Z87.42 Active 27888189 ALLERGIES Substance Reaction Event Type Date Status Sulfamethoxazole-Trimethoprim anaphylaxis Drug Allergy Apr, Active Erythromycin rash Drug Allergy Apr, Active Hydrocodone vomiting Non Drug Allergy Apr, Active ENCOUNTERS Encounter Location Date Diagnosis [facility] [address] [facility]NOTE 3[facility] [id number] [address] Jun, [facility] [id number] [address] May, [facility] [address] [facility]NOTE 3] [id number], [place] [address] May, [facility] [address] [address] 24 Apr, 2018 Generalized anxiety disorder F41.1 and Bereavement Z63.4 [facility] [id number] [place] [address] 17 Apr, 2018 [facility] [id number] [place] [address] 13 Apr, 2018 Diverticulitis K57.92 [facility] [id number] [place] [address] 10 Apr, 2018 Generalized anxiety disorder F41.1 and Bereavement Z63.4 [facility] [id number] [place] [address] Mar, [facility] [id number] [place] [address] Mar, Diverticulitis K57.92 [facility] [id number] [place] [address] Mar, Generalized anxiety disorder F41.1 and Bereavement Z63.4 [facility] [id number] [place] [address] Mar, Hypertension I10 [facility] [address] [place] [address] Mar, Generalized anxiety disorder F41.1 and Bereavement Z63.4 [facility] [address] [place] [address] Feb, Generalized anxiety disorder F41.1 and Bereavement Z63.4 [facility] [id number] [place] [address] Feb, [facility] [id number] [place] [address] Feb, Generalized anxiety disorder F41.1 and Bereavement Z63.4 [facility] [id number] [place] [address] Feb, Generalized anxiety disorder F41.1 and Bereavement Z63.4 [facility] [id number] [place] [address] Jan, Hypertension I10 and Acute non-recurrent maxillary sinusitis J01.00 [facility] [id number] [place] [address] December, [facility] [id number] [place] [address] December, Hypertension I10 [facility] [id number] [place] [address] December, Generalized anxiety disorder F41.1 [facility] [id number] [place] [address] Oct, Encounter for dental examination Z01.20 [facility] [address] [place] [id number] [place] [address] Oct, Encounter for dental examination Z01.20 [facility] [address] [place] [id number] [place] [address] Oct, Dental examination Z01.20 [facility] [id number] [place] [address] Oct, Generalized anxiety disorder F41.1 [facility] [id number] [place] [address] Aug, Dental examination Z01.20 [facility] [id number] [place] [address] Aug, Generalized anxiety disorder F41.1 [facility] [id number] [place] [address] Aug, [facility] [id number] [place] [address] Aug, Encounter for dental examination Z01.20 [facility] [address] [id number], [place] [address] Aug, Subacute maxillary sinusitis J01.00 [facility] [address] [id number] [address] Jul, Dental examination Z01.20 [facility] [address] [id number], [place] [address] 19 Jul, 2017 Generalized anxiety disorder F41.1 [facility] [address] [id number], [place] [address] 11 Jul, 2017 Diverticulitis K57.92 [facility] [id number] [place] [address] 28 Jun, 2017 Encounter for immunization Z23 [facility] [address] [id number] [address] Jun, Dental examination Z01.20 [facility] [address] [id number], [place] [address] 14 Jun, 2017 Generalized anxiety disorder F41.1 [facility] [address] [id number] [place] [address] 07 Jun, 2017 Dental examination Z01.20 [facility] [address] [facility]NOTE 3] [id number], [place] [address] May, [facility] [address] [id number] [id number] May, Dental examination Z01.20 [facility] [address] [id number] [id number] May, Dental examination Z01.20 [facility] [address] [id number] [place] [address] May, Dental examination Z01.20 [facility] [address] [id number], [place] [address] May, [facility] [id number] [place] [address] May, Generalized anxiety disorder F41.1 [facility] [id number] [place] [address] May, Localized edema R60.0 ; Yeast vaginitis B37.3 and Gastroesophageal reflux disease with esophagitis K21.0 [facility] [id number] [place] [id number] Apr, Dental examination Z01.20 [facility] [id number] [place] [address] Apr, Dental examination Z01.20 [facility] [id number] [place] [address] Apr, Dental examination Z01.20 [facility] [id number] [place] [address] Mar, Dyspepsia R10.13 [facility] [id number] [place] [address] Mar, Generalized anxiety disorder F41.1 [facility] [id number] [place] [address] Mar, Encounter for dental examination Z01.20 [facility] [id number] [place] [id number] Mar, [facility] [id number] [place] [id number] Mar, Dental examination Z01.20 [facility] [address] [place] [address] Feb, Hypertension I10 and Tachycardia R00.0 [facility] [id number] [place] [address] Feb, [facility] [id number] [place] [address] Feb, Generalized anxiety disorder F41.1 [facility] [address] [id number] Feb, Dental examination Z01.20 [facility] [address] [place] [address] Jan, Generalized anxiety disorder F41.1 [facility] [address] [place] [address] December, Generalized anxiety disorder F41.1 [facility] [address] [id number] December, Encounter for dental examination Z01.20 [facility] [id number] [place] [address] Nov, [facility] [id number] [place] [address] Nov, [facility] [id number] [place] [address] Nov, Generalized anxiety disorder F41.1 [facility] [address] [place] [address] Oct, [facility] [address] [place] [id number] Oct, Dental examination Z01.20 [facility] [address] [place] [address] Oct, Vaginal dryness N89.8 [facility] [address] [place] [address] Oct, Pseudoseizures F44.5 [facility] [id number] [place] [address] Oct, Generalized anxiety disorder F41.1 [facility] [address] [place] [address] Sep, Abnormal uterine bleeding (AUB) N93.9 ; Vaginal dryness N89.8 and Screening breast examination Z12.39 [facility] [id number] [place] [address] 20 Sep, 2016 Dental examination Z01.20 [facility] [id number] [place] [address] 20 Sep, 2016 Generalized anxiety disorder F41.1 [address] [address] 06 Sep, 2016 Unspecified ovarian cyst, right side N83.201 ; Unspecified ovarian cyst, left side N83.202 ; Yeast infection of the vagina B37.3 ; Mitral valve prolapse I34.1 and Hypertension I10 [place] [address] [address] Aug, Generalized anxiety disorder F41.1 [address] [place] [address] [address] Jul, [facility] [address] [address] Jul, Generalized anxiety disorder F41.1 [address] [place] [address] [address] Jun, Generalized anxiety disorder F41.1 [address] [place] [address] [address] 28 May, 2016 Encounter for immunization Z23 [place] [address] [address] 17 May, 2016 Generalized anxiety disorder F41.1 and Depressive disorder, not elsewhere classified F32.9 [facility] [address] [address] 28 Apr, 2016 Hypertension I10 [facility] [id number] [place] [address] 22 Apr, 2016 Cervicalgia M54.2 [facility] [id number] [place] [address] 12 Sep, 2016 Cervicalgia M54.2 [facility] [address] [place] [address] Mar, Generalized anxiety disorder F41.1 and Depressive disorder, not elsewhere classified F32.9 [facility] [address] [id number] 14 Feb, 2016 Visit for dental examination Z01.20 [facility] [id number] [place] [address] 11 Feb, 2016 Pseudoseizures F44.5 ; Migraine without status migrainosus, not intractable, unspecified migraine type G43.909 and Essential hypertension I10 [facility] [id number] [place] [id number] Feb, Dental examination Z01.20 [facility] [id number] [place] [address] Feb, Generalized anxiety disorder F41.1 and Depressive disorder, not elsewhere classified F32.9 [facility] [address] [place] [address] Jan, Tachycardia R00.0 [facility] [id number] [place] [address] December, Eustachian tube dysfunction, bilateral H69.83 [facility] [id number] [place] [address] December, Generalized anxiety disorder F41.1 and Depressive disorder, not elsewhere classified F32.9 [facility] [address] [place] [address] Nov, [facility] [id number] [place] [address] Nov, [facility] [address] [place] [address] Nov, Hypertension I10 ; Onychomycosis B35.1 ; [...] and Complex cyst of left ovary N83.29 [place] [address] [address] 14 Nov, 2015 Sinusitis J32.9 [place] [address] [address] Oct, Complex cyst of left ovary N83.29 [place] [id number] [place] [address] Oct, Onychomycosis B35.1 [facility] [address] [id number] Oct, Dental examination Z01.20 [place] [address] [address] 09 Oct, 2015 Well woman exam Z01.419 [...] R92.2 and History of colon polyps Z86.010 [place] [address] [address] Oct, Generalized anxiety disorder F41.1 and Depressive disorder, not elsewhere classified F32.9 [place] [id number] [place] [address] Sep, Hypertension I10 and Onychomycosis B35.1 [facility] [id number] [place] [address] 16 Sep, 2015 Skin tags, multiple acquired L91.8 [facility] [id number] [place] [address] Aug, [facility] [id number] [place] [address] Aug, [facility] [address] [address] Aug, [facility] [id number] [place] [address] Aug, Generalized anxiety disorder F41.1 and Depressive disorder, not elsewhere classified F32.9 [facility] [id number] [place] [address] Jul, Skin lesion L98.9 [facility] [address] [address] Jun, Generalized anxiety disorder F41.1 and Depressive disorder, not elsewhere classified F32.9 [facility] [id number] [place] [address] Jun, [facility] [id number] [place] [address] Jun, Generalized anxiety disorder F41.1 [facility] [id number] [place] [address] May, Encounter for immunization Z23 and Right shoulder pain M25.511 [facility] [id number] [place] [address] Apr, [facility] [id number] [place] [address] 14 Apr, 2015 Generalized anxiety disorder 300.02 and Depressive disorder, not elsewhere classified 311 [facility] [id number] [place] [address] [id number] Mar, Dental examination V72.2 [facility] [address], [place] [address] Mar, Generalized anxiety disorder 300.02 and Depressive disorder, not elsewhere classified 311 [facility] [address], [place] [address] Mar, Depression, major, recurrent, 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.35 and 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 [facility] [address], [place] [address] Feb, Generalized anxiety disorder 300.02 and Depressive disorder, not elsewhere classified 311 [facility] [address] [id number] Feb, Dental examination V72.2 [facility] [id number] [place] [address] Jan, Generalized anxiety disorder 300.02 and Depressive disorder, not elsewhere classified 311 [facility] [address], [place] [address] Jan, [facility] [id number] [place] [address] December, Generalized anxiety disorder 300.02 and Depressive disorder, not elsewhere classified 311 [facility] [address], [place] [address] December, Major depressive disorder, recurrent, unspecified 296.30 and Panic disorder with agoraphobia 300.21 [facility] [address], [place] [address] Nov, [facility] [id number] [place] [address] Nov, [facility] [address], [place] [address] Oct, [facility] [address] [place] [address] Oct, [facility] [place] [facility] [address] [id number] [place] [address] Oct, [facility] [place] [facility] [address] [id number] [place] [address] Oct, [facility] [place] [facility] [address] [id number] [place] [address] Sep, 2014 [facility] [place] [facility] [address] [id number] [place] [address] Sep, 2014 [facility] [place] [facility] [address] [id number] [place] [address] Sep, [facility] [place] [facility] [address] [id number] [place] [address] Sep, 2014 [facility] [place] [facility] [address] [id number] [place] [address] Sep, [facility] [place] [facility] [address] [id number] [place] [address] Sep, [facility] [place] [facility] [address] [id number] [place] [address] Sep, [facility] [place] [facility] [address] [id number] [place] [address] Sep, [facility] [place] [facility] [address] [id number] [place] [address] Sep, [facility] [place] [facility] [address] [id number] [place] [address] Sep, [facility] [place] [facility] [address] [id number] [place] [address] Aug, [facility] [place] [facility] [address] [id number] [place] [address] Aug, [facility] [place] [facility] [address] [id number] [place] [address] Jul, [facility] [place] [facility] [address] [id number] [place] [address] Jul, [facility] [place] [facility] [address] [id number] [place] [address] Jul, [facility] [place] [facility] [address] [id number] [place] [address] Jul, [facility] [place] [facility] [address] [id number] [place] [address] Jul, [facility] [place] [facility] [address] [id number] [place] [address] Jul, [facility] [place] [facility] [address] [id number] [place] [address] Jul, [facility] [place] [facility] [address] [id number] [place] [address] Jul, [facility] [place] [facility] [address] [id number] [place] [address] Jul, [facility] [place] [facility] [address] [id number] [place] [address] Jul, [facility] [place] [facility] [address] [id number] [place] [address] Jul, [facility] [place] [facility] [address] [id number] [place] [address] Jul, [facility] [place] [facility] [address] [id number] [place] [address] Jun, [facility] [place] [facility] [address] [id number] [place] [address] Jun, [facility] [place] [facility] [address] [id number] [place] [address] May, [facility] [place] [facility] [address] [id number] [place] [address] May, [facility] [place] [facility] [address] [id number] [place] [address] May, [facility] [place] [facility] [address] [id number] [place] [address] May, [facility] [place] [facility] [address] [id number] [place] [address] May, [facility] [place] [facility] [address] [id number] [place] [address] May, [facility] [place] [facility] [address] [id number] [place] [address] May, [facility] [place] [facility] [address] [id number] [place] [address] May, [facility] [place] [facility] [address] [id number] [place] [address] May, [facility] [place] [facility] [address] [id number] [place] [address] May, [facility] [place] [facility] [address] [id number] [place] [address] May, [facility] [place] [facility] [address] [id number] [place] [address] May, [facility] [place] [facility] [address] [id number], [place] [address] 30 Apr, 2014 [facility] [place] [facility] [address] [id number], [place] [address] 30 Apr, 2013 [facility] [place] [facility] [address] [id number], [place] [address] 29 Apr, 2013 [facility] [place] [facility] [address] [id number] [place] [address] 29 Apr, 2013 [facility] [place] [facility] [address] [id number] [place] [address] Apr, 2013 [facility] [place] [facility] [address] [id number] [place] [address] Apr, 2013 [facility] [place] [facility] [address] [id number] [place] [address] Feb, [facility] [place] [facility] [address] [id number] [place] [address] Feb, [facility] [place] [facility] [address] [id number] [place] [address] Feb, [facility] [place] [facility] [address] [id number] [place] [address] Feb, [facility] [place] [facility] [address] [id number] [place] [address] Feb, [facility] [place] [facility] [address] [id number] [place] [address] Feb, [facility] [place] [facility] [address] [id number] [place] [address] Jan, [facility] [place] [facility] [address] [id number] [place] [address] Jan, [facility] [place] [facility] [address] [id number] [place] [address] Jan, [facility] [place] [facility] [address] [id number] [place] [address] Jan, [facility] [place] [facility] [address] [id number] [place] [address] Jan, [facility] [place] [facility] [address] [id number] [place] [address] Jan, [facility] [place] [facility] [address] [id number] [place] [address] Jan, [facility] [place] [facility] [address] [id number] [place] [address] Jan, [facility] [place] [facility] [address] [id number] [place] [address] December, [facility] [place] [facility] [address] [id number] [place] [address] December, [facility] [place] [facility] [address] [id number] [place] [address] December, [facility] [place] [facility] [address] [id number] [place] [address] December, [facility] [place] [facility] [address] [id number] [place] [address] Nov, [facility] [place] [facility] [address] [id number] [place] [address] Nov, [facility] [place] [facility] [address] [id number] [place] [address] Nov, [facility] [place] [facility] [address] [id number] [place] [address] Nov, [facility] [place] [facility] [address] [id number] [place] [address] Nov, [facility] [place] [facility] [address] [id number] [place] [address] Nov, [facility] [place] [facility] [address] [id number] [place] [address] Nov, [facility] [place] [facility] [address] [id number] [place] [address] Nov, [facility] [place] [facility] [address] [id number] [place] [address] Oct, [facility] [place] [facility] [address] [id number] [place] [address] Oct, [facility] [place] [facility] [address] [id number] [place] [address] Sep, [facility] [place] [facility] [address] [id number] [place] [address] Sep, [facility] [place] [facility] [address] [id number] [place] [id number] Sep, [facility] [place] [facility] [address] [id number] [place] [address] Sep, [facility] [place] [facility] [address] [id number] [place] [address] Sep, [facility] [place] [facility] [address] [id number] [place] [address] Sep, [facility] [place] [facility] [address] [id number] [place] [address] Aug, [facility] [place] [facility] [address] [id number] [place] [address] Aug, [facility] [place] [facility] [address] [id number] [place] [address] Aug, [facility] [place] [facility] [address] [id number] [place] [address] Aug, [facility] [place] [facility] [address] [id number] [place] [address] Jul, [facility] [place] [facility] [address] [id number] [place] [address] Jul, [facility] [place] [facility] [address] [id number] [place] [address] Jul, [facility] [place] [facility] [address] [id number] [place] [address] Jul, [facility] [place] [facility] [address] [id number] [address] Jun, [facility] [place] [facility] [address] [id number], [place] [address] Jun, [facility] [place] [facility] [address] [id number] [place] [address] May, [facility] [place] [facility] [address] [id number] [place] [address] May, [facility] [place] [facility] [address] [id number] [place] [address] May, [facility] [place] [facility] [address] [id number] [place] [address] 11 May, 2013 [facility] [address] [id number] [place] [address] 10 May, 2013 [facility] [place] [facility] [address] [id number] [place] [address] 17 Apr, 2013 [facility] [address] [id number] [place] [address] Apr, [facility] [address] [id number] [place] [address] 29 Mar, 2013 [facility] [address] [id number] [place] [address] Mar, [facility] [address] [id number] [place] [address] 15 Mar, 2013 [facility] [address] [id number] [place] [address] Mar, [facility] [address] [id number] [place] [address] Feb, [facility] [address] [id number] [place] [address] Feb, [facility] [address] [id number] [place] [address] 16 Feb, 2013 [facility] [place] [facility] [address] [id number] [place] [address] Feb, [facility] [address] [id number] [place] [address] Feb, [facility] [place] [facility] [address] [id number] [place] [address] Jan, [facility] [place] [facility] [address] [id number] [place] [address] Jan, [facility] [place] [facility] [address] [id number] [place] [address] Jan, [facility] [address] [id number] [place] [address] Jan, [facility] [address] [id number] [place] [address] Jan, [facility] [address] [id number] [place] [address] December, [facility] [address] [id number] [place] [address] December, [facility] [address] [id number] [place] [address] Nov, [facility] [address] [id number] [place] [address] Nov, [facility] [address] [id number] [place] [address] Oct, [facility] [address] [id number] [place] [address] Oct, [facility] [address] [id number] [place] [address] Oct, [facility] [address] [id number] [place] [address] Sep, [facility] [address] [id number] [place] [address] Aug, [facility] [place] [facility] [address] [id number], [place] [address] Aug, [facility] [place] [facility] [address] [id number] [place] [address] Aug, [facility] [place] [facility] [address] [id number] [place] [address] Aug, [facility] [place] [facility] [address] [id number] [place] [address] Jul, [facility] [place] [facility] [address] [id number] [place] [address] Jul, [facility] [place] [facility] [address] [id number] [place] [address] Jul, [facility] [place] [facility] [address] [id number] [place] [address] Jul, [facility] [place] [facility] [address] [facility] [id number] [place] [address] Jul, [facility] [place] [facility] [address] [id number] [place] [address] Jul, [facility] [place] [facility] [address] [id number] [place] [address] Jul, [facility] [place] [facility] [address] [id number] [place] [address] Jul, [facility] [place] [facility] [address] [facility]] [id number] [place] [address] Jun, [facility] [place] [facility] [address] [id number] [place] [address] Jun, [facility] [place] [facility] [address] [facility]] [id number] [place] [address] Jun, [facility] [place] [facility] [address] [facility]] [id number] [place] [address] Jun, [facility] [place] [facility] [address] [facility]] [id number] [place] [address] Jun, [facility] [place] [facility] [address] [facility] [id number], [place] [address] Jun, [facility] [place] [facility] [address] [id number], [place] [address] May, [facility] [place] [facility] [address] [facility]] [id number] [place] [address] May, [facility] [place] [facility] [address] [facility]] [id number], [place] [address] May, [facility] [place] [facility] [address] [id number] [place] [address] 17 May, 2012 [facility] [place] [facility] [address] [id number] [place] [address] 26 Apr, 2012 [facility] [place] [facility] [address] [id number] [place] [address] 06 Apr, 2012 [facility] [place] [facility] [address] [id number] [place] [address] 08 Mar, 2012 [facility] [place] [facility] [address] [id number] [place] [address] 28 Jan, 2012 [facility] [place] [facility] [address] [id number] [place] [address] 20 Jan, 2012 [facility] [place] [facility] [address] [id number] [place] [address] 16 Jan, 2012 [facility] [place] [facility] [address] [id number] [place] [address] 15 Jan, 2012 [facility] [place] [facility] [address] [id number] [place] [address] Jan, [facility] [place] [facility] [address] [id number] [place] [address] 14 Jan, 2012 [facility] [place] [facility] [address] [id number] [place] [address] Jan, [facility] [place] [facility] [address] [id number] [place] [address] December, [facility] [place] [facility] [address] [id number] [place] [address] December, [facility] [place] [facility] [address] [id number] [place] [address] December, [facility] [place] [facility] [address] [id number] [place] [address] December, [facility] [place] [facility] [address] [id number] [place] [address] Nov, [facility] [address] [id number] [place] [address] Nov, [facility] [place] [facility] [address] [id number] [place] [address] Oct, [facility] [place] [facility] [address] [id number] [place] [address] Oct, [facility] [place] [facility] [address] [id number] [place] [address] Oct, [facility] [place] [facility] [address] [id number] [place] [address] Sep, [facility] [place] [facility] [address] [id number] [place] [address] Sep, [facility] [place] [facility] [address] [id number] [place] [address] Sep, [facility] [place] [facility] [address] [id number] [place] [address] Aug, [facility] [place] [facility] [address] [id number] [place] [address] Aug, [facility] [place] [facility] [address] [id number] [place] [address] Aug, [facility] [place] [facility] [address] [id number] [place] [address] Aug, [facility] [place] [facility] [address] [id number] [place] [address] Aug, [facility] [place] [facility] [address] [id number] [place] [address] Aug, [facility] [place] [facility] [address] [id number] [place] [address] Aug, [facility] [place] [facility] [address] [id number] [place] [address] Jul, [facility] [place] [facility] [address] [id number] [place] [address] 02 Jul, 2011 [facility] [place] [facility] [address] [id number] [place] [address] 30 Jun, 2011 [facility] [place] [facility] [address] [id number] [place] [address] 28 Jun, 2011 [facility] [place] [facility] [address] [id number] [place] [address] 17 Jun, 2011 [facility] [place] [facility] [address] [id number] [place] [address] 15 Jun, 2011 [facility] [place] [facility] [address] [id number] [place] [address] 14 Jun, 2011 [facility] [place] [facility] [address] [id number] [place] [address] 14 Jun, 2011 [facility] [place] [facility] [address] [id number] [place] [address] Jun, [facility] [place] [facility] [address] [id number] [place] [address] Jun, [facility] [place] [facility] [address] [id number] [place] [address] Jun, [facility] [place] [facility] [address] [id number] [place] [address] Jun, [facility] [place] [facility] [address] [id number] [place] [address] May, [facility] [place] [facility] [address] [id number] [place] [address] May, [facility] [place] [facility] [address] [id number] [place] [address] May, [facility] [place] [facility] [address] [id number] [place] [address] 24 May, 2011 [facility] [place] [facility] [address] [id number] [place] [address] 18 May, 2011 [facility] [address] [id number] [place] [address] 13 May, 2011 [facility] [place] [facility] [address] [id number] [place] [address] 13 Feb, 2011 [facility] [place] [facility] [address] [id number] [place] [address] December, [facility] [place] [facility] [address] [id number] [place] [address] 29 Jul, 2010 [facility] [place] [facility] [address] [id number] [place] [address] 29 Jul, 2010 [facility] [place] [facility] [address] [id number] [place] [address] 22 Jul, 2010 [facility] [place] [facility] [address] [id number] [place] [address] Jul, [facility] [place] [facility] [address] [id number] [place] [address] 15 Jun, 2010 [facility] [place] [facility] [address] [id number] [place] [address] 31 Jul, 2009 [facility] [place] [facility] [address] [id number] [place] [address] 23 Jul, 2009 [facility] [place] [facility] [address] [id number] [place] [address] 23 Jul, 2009 [facility] [place] [facility] [address] [id number], [place] [address] 17 Jul, 2009 [facility] [place] [facility] [address] [id number] [place] [address] 17 Jul, 2009 [facility] [place] [facility] [address] [id number] [place] [address] 10 Jul, 2009 [facility] [place] [facility] [address] [id number] [place] [address] 15 Jan, 2009 [facility] [place] [facility] [address] [id number] [place] [address] Sep, [facility] [address] [facility]NOTE 3[facility] [id number] [place] [address] Sep, IMMUNIZATIONS No Known Immunizations SOCIAL HISTORY Never Assessed REASON FOR VISIT Diverticulitis f/u--ABoggsLPN PLAN OF CARE Activity Details Follow Up prn Reason: VITAL SIGNS Height 66 in 2018-05-07 Weight 174.6 lbs 2018-05-07 Temperature 98.4 degrees Fahrenheit 2018-05-07 Heart Rate 70 bpm 2018-05-07 Respiratory Rate 18 2018-05-07 BMI 28.18 kg/m2 2018-05-07 Blood pressure systolic 126 mmHg 2018-05-07 Blood pressure diastolic 78 mmHg 2018-05-07 MEDICATIONS Medication Instructions Dosage Frequency Start Date End Date Duration Status Fluconazole 150 MG Orally now and december repeat in 3 days 1 tablet May, Active Flagyl 500 MG Orally 4 times a day 1 tablet 6h Active Hydrochlorothiazide 25 MG Orally Once a day 1 tablet 24h Active Clorazepate Dipotassium 7.5 MG Orally 4 times a day 1 tablet as needed 6h 30 days Active Omeprazole 20 mg Orally twice a day 1 capsule 12h Mar, 30 day(s) Active Inderal LA 80 MG Orally Once a day. Take along with the 120 mg Capsule 1 capsule December, 90 days Active Propranolol HCl 20 mg Orally Once a day prn tachycardia 1 tablet Jan, 90 Active Ibuprofen 600 MG Orally Three times a day 1 tablet with food or milk as needed 8h May, Active Melatonin 5 MG Orally Once a day 1 tablet at bedtime as needed with food 24h 30 day(s) Active Inderal LA 120 MG Orally Once a day. Take along with the 80mg Capsule 1 capsule December, 90 days Active Hyoscyamine Sulfate 0.125 mg Sublingual 2 times a day as needed 1 tablet by Oral route 4 times per day PRN Jul, Active Zofran 8 MG Orally TID 1 tablet 8h Mar, Active RESULTS No Results PROCEDURES No Known [...]
--- OUTSIDE RECORDS SUMMARY | 2019-01-22 20:47 | XMS REPORT ---
Author Author KVNG MERCHANT [facility] Address [address] [place] [address] Care Team Providers Care Head Charrer Name Role Phone KVNG MERCHANT Unavailable PROBLEMS Type Condition ICD9-CM Code XFU21-YX Code Onset Dates Condition Status SNOMED Code Problem Family history of diabetes mellitus Z83.3 Active 566712738 Problem Hot flashes N95.1 Active 926468424 Problem Excessive and frequent menstruation with irregular cycle N92.1 Active 189424276 Problem Diverticulitis K57.92 Active 923241565 Problem Gastroesophageal reflux disease with esophagitis K21.0 Active 748067434 Problem Mitral valve prolapse I34.1 Active 025990500 Problem Perimenopausal N95.1 Active 260450424522375 Problem Tachycardia R00.0 Active 3295215 Problem Abnormal uterine bleeding (AUB) N93.9 Active 33818833863247 Problem History of diverticulitis Z87.19 Active 703730308431621 Problem History of colon polyps Z86.010 Active 134835374 Problem Generalized anxiety disorder F41.1 Active 344806379 Problem Dense breast tissue R92.2 Active 260448976 Problem Hypertension I10 Active 63057185 Problem History of ovarian cyst Z87.42 Active 14937505 ALLERGIES No Information ENCOUNTERS Encounter Location Date Diagnosis [facility], [place] [address] [facility] [id number] [address] Jun, [facility], [place] [address] [facility] [id number] [address] May, [facility], [place] [address] [address] May, [facility], [place] [address] [id number] [address] Apr, Generalized anxiety disorder F41.1 and Bereavement Z63.4 [facility], [place] [address] [address] 17 Apr, 2018 [facility], [place] [id number] [place] [address] Apr, Diverticulitis K57.92 [facility], [place] [id number] [place] [address] Apr, Generalized anxiety disorder F41.1 and Bereavement Z63.4 [facility] [id number] [place] [address] Mar, [facility] [id number] [place] [address] Mar, Diverticulitis K57.92 [facility], [place] [id number] [place] [address] Mar, Generalized anxiety disorder F41.1 and Bereavement Z63.4 [facility], [place] [id number] [place] [address] Mar, Hypertension I10 [facility], [place] [id number] [place] [address] Mar, Generalized anxiety disorder F41.1 and Bereavement Z63.4 [facility], [place] [id number] [place] [address] Feb, Generalized anxiety disorder F41.1 and Bereavement Z63.4 [facility], [place] [address] [address] Feb, [facility], [place] [id number] [place] [address] Feb, Generalized anxiety disorder F41.1 and Bereavement Z63.4 [facility], [place] [id number] [place] [address] Feb, Generalized anxiety disorder F41.1 and Bereavement Z63.4 [facility], [place] [address] [id number] [address] Jan, Hypertension I10 and Acute non-recurrent maxillary sinusitis J01.00 [facility], [place] [id number] [place] [address] December, [facility], [place] [id number] [place] [address] December, Hypertension I10 [facility], [place] [id number] [place] [address] December, Generalized anxiety disorder F41.1 [facility] [id number] [place] [address] Oct, Encounter for dental examination Z01.20 [facility] [id number] [place] [address] Oct, Encounter for dental examination Z01.20 [facility] [address] [id number] [place] [address] Oct, Dental examination Z01.20 [facility], [place] [id number] [place] [address] Oct, Generalized anxiety disorder F41.1 [facility] [id number] [place] [address] Aug, Dental examination Z01.20 [facility], [place] [id number] [place] [address] Aug, Generalized anxiety disorder F41.1 [facility], [place] [id number] [place] [address] Aug, [facility] [id number] [place] [address] Aug, Encounter for dental examination Z01.20 [facility], [place] [id number] [place] [address] Aug, Subacute maxillary sinusitis J01.00 [facility] [address] [id number], [place] [address] Jul, Dental examination Z01.20 [facility], [place] [address] [id number] [address] 19 Jul, 2017 Generalized anxiety disorder F41.1 [facility], [place] [address] [id number] [address] Jul, Diverticulitis K57.92 [facility], [place] [id number] [place] [address] 28 Jun, 2017 Encounter for immunization Z23 [facility] [id number] [place] [address] Jun, Dental examination Z01.20 [facility], [place] [address] [id number] [address] 14 Jun, 2017 Generalized anxiety disorder F41.1 [facility] [address] [id number], [place] [address] 07 Jun, 2017 Dental examination Z01.20 [facility], [place] [address] [id number] [place] [address] May, [facility] [address] [id number] [id number] May, Dental examination Z01.20 [facility] [id number] [place] [id number] May, Dental examination Z01.20 [facility] [address] [id number], [place] [address] May, Dental examination Z01.20 [facility], [place] [address] [id number] [place] [address] May, [facility], [place] [address] [facility] [id number] [place] [address] May, Generalized anxiety disorder F41.1 [facility], [place] [address]65100[place] [address] May, Localized edema R60.0 ; Yeast vaginitis B37.3 and Gastroesophageal reflux disease with esophagitis K21.0 [facility] [id number] [place] [id number] Apr, Dental examination Z01.20 [facility] [id number] [place] [address] Apr, Dental examination Z01.20 [facility] [id number] [place] [address] Apr, Dental examination Z01.20 [facility], [place] [id number] [place] [address] Mar, Dyspepsia R10.13 [facility], [place] [id number] [place] [address] Mar, Generalized anxiety disorder F41.1 [facility] [id number] [place] [address] Mar, Encounter for dental examination Z01.20 [facility] [id number] [place] [id number] Mar, [facility] [id number] [place] [address] [id number] Mar, Dental examination Z01.20 [facility], [place] [id number] [place] [address] Feb, Hypertension I10 and Tachycardia R00.0 [facility] [id number] [place] [address] Feb, [facility], [place] [id number] [place] [address] Feb, Generalized anxiety disorder F41.1 [facility] [id number] [place] [address] [id number] Feb, Dental examination Z01.20 [facility], [place] [address]65100[place] [address] Jan, Generalized anxiety disorder F41.1 [facility], [place] [id number] [place] [address] December, Generalized anxiety disorder F41.1 [facility] [id number] [place] [id number] December, Encounter for dental examination Z01.20 [facility], [place] [id number] [place] [address] Nov, [facility], [place] [id number] [place] [address] Nov, [facility], [place] [id number] [place] [address] Nov, Generalized anxiety disorder F41.1 [facility], [place] [id number] [place] [address] Oct, [facility] [id number] [place] [id number] Oct, Dental examination Z01.20 [facility], [place] [id number] [place] [address] Oct, Vaginal dryness N89.8 [facility], [place] [id number] [place] [address] Oct, Pseudoseizures F44.5 [facility], [place] [id number] [place] [address] Oct, Generalized anxiety disorder F41.1 [facility], [place] [id number] [place] [address] 28 Sep, 2016 Abnormal uterine bleeding (AUB) N93.9 ; Vaginal dryness N89.8 and Screening breast examination Z12.39 [facility], [place] [id number] [place] [address] Sep, Dental examination Z01.20 [facility], [place] [id number] [place] [address] Sep, Generalized anxiety disorder F41.1 [facility], [place] [id number] [place] [address] 06 Sep, 2016 Unspecified ovarian cyst, right side N83.201 ; Unspecified ovarian cyst, left side N83.202 ; Yeast infection of the vagina B37.3 ; Mitral valve prolapse I34.1 and Hypertension I10 [facility], [place] [id number] [place] [address] Aug, Generalized anxiety disorder F41.1 [place] [address] [address] Jul, [place] [address] [address] Jul, Generalized anxiety disorder F41.1 [facility], [place] [address] [address] Jun, Generalized anxiety disorder F41.1 [facility], [place] [address] [address] May, Encounter for immunization Z23 [facility], [place] [address] [address] 17 May, 2016 Generalized anxiety disorder F41.1 and Depressive disorder, not elsewhere classified F32.9 [facility], [place] [id number] [place] [address] Apr, Hypertension I10 [facility], [place] [id number] [place] [address] 22 Apr, 2016 Cervicalgia M54.2 [facility] [id number] [place] [address] 12 Apr, 2016 Cervicalgia M54.2 [facility], [place] [id number] [place] [address] Mar, Generalized anxiety disorder F41.1 and Depressive disorder, not elsewhere classified F32.9 [facility] [id number] [place] [address] [id number] 14 Feb, 2016 Visit for dental examination Z01.20 [facility], [place] [id number] [place] [address] Feb, Pseudoseizures F44.5 ; Migraine without status migrainosus, not intractable, unspecified migraine type G43.909 and Essential hypertension I10 [facility] [address] [place] [id number] 06 Feb, 2016 Dental examination Z01.20 [facility], [place] [address] [address] Feb, Generalized anxiety disorder F41.1 and Depressive disorder, not elsewhere classified F32.9 [facility], [place] [id number] [place] [address] Jan, Tachycardia R00.0 [facility], [place] [id number] [place] [address] December, Eustachian tube dysfunction, bilateral H69.83 [facility], [place] [id number] [place] [address] December, Generalized anxiety disorder F41.1 and Depressive disorder, not elsewhere classified F32.9 [facility], [place] [id number] [place] [address] Nov, [facility], [place] [id number] [place] [address] Nov, [facility], [place] [id number] [place] [address] Nov, Hypertension I10 ; Onychomycosis B35.1 ; [...] and Complex cyst of left ovary N83.29 [place] [id number] [place] [address] 14 Nov, 2015 Sinusitis J32.9 [place] [address] [address] Oct, Complex cyst of left ovary N83.[address] [address] Oct, Onychomycosis B35.1 [facility] [address] [id number] Oct, Dental examination Z01.[address] [address] Oct, Well woman exam Z01.419 ; Encounter [...] R92.2 and History of colon polyps Z86.010 [place] [id number] [place] [address] Oct, Generalized anxiety disorder F41.1 and Depressive disorder, not elsewhere classified F32.[address] [address] Sep, Hypertension I10 and Onychomycosis B35.[address] [address] 16 Sep, 2015 Skin tags, multiple acquired L91.8 [facility], [place] [id number] [place] [address] Aug, [facility], [place] [id number] [place] [address] Aug, [facility], [place] [id number] [place] [address] Aug, [facility], [place] [id number] [place] [address] Aug, Generalized anxiety disorder F41.1 and Depressive disorder, not elsewhere classified F32.9 [facility], [place] [id number] [place] [address] Jul, Skin lesion L98.9 [facility], [place] [id number] [place] [address] Jun, Generalized anxiety disorder F41.1 and Depressive disorder, not elsewhere classified F32.9 [facility], [place] [id number] [place] [address] Jun, [facility], [place] [id number] [place] [address] Jun, Generalized anxiety disorder F41.1 [facility], [place] [id number] [place] [address] May, Encounter for immunization Z23 and Right shoulder pain M25.511 [facility], [place] [id number] [place] [address] Apr, [facility], [place] [id number] [place] [address] 14 Apr, 2015 Generalized anxiety disorder 300.02 and Depressive disorder, not elsewhere classified 311 [facility] [address] [place] [id number] Mar, Dental examination V72.2 [facility], [place] [id number] [place] [address] Mar, Generalized anxiety disorder 300.02 and Depressive disorder, not elsewhere classified 311 [facility], [place] [address] [address] Mar, Depression, major, recurrent, 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.35 and 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 [facility], [place] [address] [address] Feb, Generalized anxiety disorder 300.02 and Depressive disorder, not elsewhere classified 311 [facility] [address] [id number] Feb, Dental examination V72.2 [facility], [place] [id number] [place] [address] Jan, Generalized anxiety disorder 300.02 and Depressive disorder, not elsewhere classified 311 [facility], [place] [address] [address] Jan, [facility], [place] [id number] [place] [address] December, Generalized anxiety disorder 300.02 and Depressive disorder, not elsewhere classified 311 [facility], [place] [address] [place] [address] December, Major depressive disorder, recurrent, unspecified 296.30 and Panic disorder with agoraphobia 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 [facility], [place] [address] [address] Nov, [facility], [place] [id number] [address] Nov, [facility], [place] [address] [address] Oct, [facility], [place] [address] [address] Oct, [facility], [place] [address] [address] Oct, [facility], [place] [address] [place] [address] Oct, [facility] [place] [facility] [address] [id number] [place] [address] Sep, 2014 [facility] [place] [facility] [address] [id number] [place] [address] Sep, 2014 [facility] [place] [facility] [address] [id number] [place] [address] Sep, 2014 [facility] [place] [facility] [address] [id number] [place] [address] Sep, 2014 [facility] [place] [facility] [address] [id number] [place] [address] Sep, 2014 [facility] [place] [facility] [address] [facility] [id number] [place] [address] Sep, 2014 [facility] [place] [facility] [address] [facility] [id number] [place] [address] Sep, 2014 [facility] [place] [facility] [address] [facility] [id number] [place] [address] Sep, [facility] [place] [facility] [address] [facility] [id number] [place] [address] Sep, [facility] [place] [facility] [address] [facility] [id number] [place] [address] Sep, [facility] [place] [facility] [address] [facility] [id number] [place] [address] Aug, [facility] [place] [facility] [address] [id number] [place] [address] Aug, [facility] [place] [facility] [address] [id number] [place] [address] Jul, [facility] [place] [facility] [address] [facility] [id number] [place] [address] Jul, [facility] [place] [facility] [address] [facility] [id number] [place] [address] Jul, [facility] [place] [facility] [address] [id number] [place] [address] Jul, [facility] [place] [facility] [address] [id number] [place] [address] Jul, [facility] [place] [facility] [address] [id number] [place] [address] Jul, [facility] [place] [facility] [address] [id number] [place] [address] Jul, [facility] [place] [facility] [address] [id number] [place] [address] Jul, [facility] [place] [facility] [address] [id number] [place] [address] Jul, [facility] [place] [facility] [address] [id number] [place] [address] Jul, [facility] [place] [facility] [address] [id number] [place] [address] Jul, [facility] [place] [facility] [address] [id number] [place] [address] Jul, [facility] [place] [facility] [address] [id number] [place] [address] Jun, [facility] [place] [facility] [address] [id number] [place] [address] Jun, [facility] [place] [facility] [address] [id number] [place] [address] May, [facility] [place] [facility] [address] [id number] [place] [address] May, [facility] [place] [facility] [address] [id number] [place] [address] May, [facility] [place] [facility] [address] [id number] [place] [address] May, [facility] [place] [facility] [address] [id number] [place] [address] May, [facility] [place] [facility] [address] [id number] [place] [address] May, [facility] [place] [facility] [address] [id number] [place] [address] May, [facility] [place] [facility] [address] [id number] [place] [address] May, 2013 [facility] [place] [facility] [address] [id number] [place] [address] May, [facility] [place] [facility] [address] [id number] [place] [address] May, [facility] [place] [facility] [address] [id number] [place] [address] May, [facility] [place] [facility] [address] [id number] [place] [address] May, [facility] [place] [facility] [address] [id number] [place] [address] 30 Apr, 2014 [facility] [place] [facility] [address] [id number] [place] [address] 30 Apr, 2013 [facility] [place] [facility] [address] [id number] [place] [address] 29 Apr, 2014 [facility] [place] [facility] [address] [id number] [place] [address] 29 Apr, 2013 [facility] [place] [facility] [address] [id number] [place] [address] Apr, [facility] [place] [facility] [address] [id number] [place] [address] Apr, [facility] [place] [facility] [address] [id number] [place] [address] Feb, [facility] [place] [facility] [address] [id number] [place] [address] Feb, [facility] [place] [facility] [address] [id number] [place] [address] Feb, [facility] [place] [facility] [address] [id number] [place] [address] Feb, [facility] [place] [facility] [address] [id number] [place] [address] Feb, [facility] [place] [facility] [address] [id number] [place] [address] Feb, [facility] [place] [facility] [address] [id number] [place] [address] Jan, [facility] [place] [facility] [address] [id number] [place] [address] Jan, [facility] [place] [facility] [address] [id number] [place] [address] Jan, [facility] [place] [facility] [address] [id number] [place] [address] Jan, [facility] [place] [facility] [address] [id number] [place] [address] Jan, [facility] [place] [facility] [address] [id number] [place] [address] Jan, [facility] [place] [facility] [address] [id number] [place] [address] Jan, [facility] [place] [facility] [address] [id number] [place] [address] Jan, [facility] [place] [facility] [address] [id number] [place] [address] December, [facility] [place] [facility] [address] [id number] [place] [address] December, [facility] [place] [facility] [address] [id number] [place] [address] December, [facility] [place] [facility] [address] [id number] [place] [address] December, [facility] [place] [facility] [address] [id number] [place] [address] Nov, [facility] [place] [facility] [address] [id number] [place] [address] Nov, [facility] [place] [facility] [address] [id number] [place] [address] Nov, [facility] [place] [facility] [address] [id number] [place] [address] Nov, [facility] [place] [facility] [address] [id number] [place] [address] Nov, [facility] [place] [facility] [address] [id number] [place] [address] Nov, [facility] [place] [facility] [address] [id number] [place] [address] Nov, [facility] [place] [facility] [address] [id number] [place] [address] Nov, [facility] [place] [facility] [address] [id number] [place] [address] Oct, [facility] [place] [facility] [address] [facility] [id number] [place] [address] Oct, [facility] [place] [facility] [address] [id number] [place] [address] Sep, [facility] [place] [facility] [address] [id number] [place] [address] Sep, [facility] [place] [facility] [address] [id number] [place] [id number] Sep, [facility] [place] [facility] [address] [facility] [id number] [place] [address] Sep, [facility] [place] [facility] [address] [facility] [id number] [place] [address] 14 Sep, 2013 [facility] [place] [facility] [address] [id number] [place] [address] 14 Sep, 2013 [facility] [place] [facility] [address] [id number] [place] [address] Aug, [facility] [place] [facility] [address] [id number] [place] [address] Aug, [facility] [place] [facility] [address] [id number] [place] [address] Aug, [facility] [place] [facility] [address] [id number] [place] [address] Aug, [facility] [place] [facility] [address] [id number] [place] [address] Jul, [facility] [place] [facility] [address] [id number] [place] [address] Jul, [facility] [place] [facility] [address] [id number] [place] [address] Jul, [facility] [place] [facility] [address] [id number] [place] [address] Jul, [facility] [place] [facility] [address] [id number] [place] [address] Jun, [facility] [place] [facility] [address] [id number] [place] [address] Jun, [facility] [place] [facility] [address] [id number] [place] [address] May, [facility] [place] [facility] [address] [id number] [place] [address] May, [facility] [place] [facility] [address] [id number] [place] [address] May, [facility] [place] [facility] [address] [id number] [place] [address] May, [facility] [place] [facility] [address] [id number] [place] [address] May, [facility] [place] [facility] [address] [id number] [place] [address] 17 Apr, 2013 [facility] [place] [facility] [address] [id number] [place] [address] Apr, [facility] [place] [facility] [address] [id number] [place] [address] Mar, [facility] [place] [facility] [address] [id number] [place] [address] Mar, [facility] [place] [facility] [address] [id number] [place] [address] Mar, [facility] [place] [facility] [address] [id number] [place] [address] Mar, [facility] [place] [facility] [address] [id number] [place] [address] Feb, [facility] [place] [facility] [address] [id number] [place] [address] Feb, [facility] [place] [facility] [address] [id number] [place] [address] Feb, [facility] [place] [facility] [address] [id number] [place] [address] Feb, [facility] [place] [facility] [address] [id number] [place] [address] Feb, [facility] [place] [facility] [address] [id number] [place] [address] Jan, [facility] [place] [facility] [address] [id number] [place] [address] Jan, [facility] [place] [facility] [address] [id number] [place] [address] 14 Jan, 2013 [facility] [place] [facility] [address] [id number] [place] [address] Jan, [facility] [place] [facility] [address] [id number] [place] [address] 06 Jan, 2013 [facility] [address] [id number] [place] [address] December, [facility] [address] [id number] [place] [address] December, [facility] [address] [id number] [place] [address] Nov, [facility] [address] [id number] [place] [address] Nov, [facility] [address] [id number] [place] [address] Oct, [facility] [address] [id number] [place] [address] Oct, [facility] [address] [id number] [place] [address] Oct, [facility] [address] [id number] [place] [address] 14 Sep, 2012 [facility] [address] [id number] [place] [address] Aug, [facility] [address] [id number] [place] [address] Aug, [facility] [address] [id number] [place] [address] 15 Aug, 2012 [facility] [address] [id number] [place] [address] Aug, [facility] [address] [id number] [place] [address] Jul, [facility] [address] [id number] [place] [address] Jul, [facility] [address] [id number] [place] [address] Jul, [facility] [place] [facility] [address] [id number] [place] [address] Jul, [facility] [place] [facility] [address] [id number] [place] [address] Jul, [facility] [place] [facility] [address] [id number] [place] [address] Jul, [facility] [place] [facility] [address] [id number] [place] [address] Jul, [facility] [place] [facility] [address] [id number] [place] [address] Jul, [facility] [place] [facility] [address] [id number] [place] [address] Jun, [facility] [place] [facility] [address] [facility] [id number] [place] [address] Jun, [facility] [place] [facility] [address] [id number] [place] [address] Jun, [facility] [place] [facility] [address] [id number] [place] [address] Jun, [facility] [place] [facility] [address] [facility] [id number] [place] [address] Jun, [facility] [place] [facility] [address] [id number] [place] [address] Jun, [facility] [place] [facility] [address] [id number] [place] [address] May, [facility] [place] [facility] [address] [id number] [place] [address] May, [facility] [place] [facility] [address] [id number] [place] [address] May, [facility] [place] [facility] [address] [facility] [id number] [place] [address] May, [facility] [place] [facility] [address] [id number] [place] [address] 26 Apr, 2012 [facility] [place] [facility] [address] [id number] [place] [address] 06 Apr, 2012 [facility] [place] [facility] [address] [id number] [place] [address] 08 Mar, 2012 [facility] [place] [facility] [address] [id number] [place] [address] 28 Jan, 2012 [facility] [place] [facility] [address] [id number] [place] [address] 20 Jan, 2012 [facility] [place] [facility] [address] [id number] [place] [address] 16 Jan, 2012 [facility] [place] [facility] [address] [id number] [place] [address] 15 Jan, 2012 [facility] [address] [id number] [place] [address] 14 Jan, 2012 [facility] [place] [facility] [address] [id number] [place] [address] 14 Jan, 2012 [facility] [place] [facility] [address] [id number] [place] [address] 07 Jan, 2012 [facility] [place] [facility] [address] [id number] [place] [address] December, [facility] [place] [facility] [address] [id number] [place] [address] December, [facility] [place] [facility] [address] [id number] [place] [address] December, [facility] [place] [facility] [address] [id number] [place] [address] December, [facility] [place] [facility] [address] [id number] [place] [address] Nov, [facility] [place] [facility] [address] [id number] [place] [address] 05 Nov, 2011 [facility] [place] [facility] [address] [id number] [place] [address] 29 Oct, 2011 [facility] [place] [facility] [address] [id number] [place] [address] 28 Oct, 2011 [facility] [place] [facility] [address] [id number] [place] [address] 15 Oct, 2011 [facility] [place] [facility] [address] [id number] [place] [address] Sep, [facility] [place] [facility] [address] [id number] [place] [address] Sep, [facility] [place] [facility] [address] [id number] [place] [address] Sep, [facility] [place] [facility] [address] [id number] [place] [address] Aug, [facility] [place] [facility] [address] [id number] [place] [address] Aug, [facility] [place] [facility] [address] [id number] [place] [address] Aug, [facility] [place] [facility] [address] [id number] [place] [address] Aug, [facility] [place] [facility] [address] [id number] [place] [address] Aug, [facility] [place] [facility] [address] [id number] [place] [address] Aug, [facility] [place] [facility] [address] [id number] [place] [address] Aug, [facility] [place] [facility] [address] [id number] [place] [address] Jul, [facility] [place] [facility] [address] [id number] [place] [address] Jul, [facility] [place] [facility] [address] [id number] [place] [address] 30 Jun, 2011 [facility] [place] [facility] [address] [id number] [place] [address] 28 Jun, 2011 [facility] [place] [facility] [address] [id number] [place] [address] 17 Jun, 2011 [facility] [place] [facility] [address] [id number] [place] [address] 15 Jun, 2011 [facility] [place] [facility] [address] [id number] [place] [address] 14 Jun, 2011 [facility] [place] [facility] [address] [id number] [place] [address] 14 Jun, 2011 [facility] [place] [facility] [address] [id number] [place] [address] Jun, [facility] [place] [facility] [address] [id number] [place] [address] Jun, [facility] [place] [facility] [address] [id number] [place] [address] Jun, [facility] [place] [facility] [address] [id number] [place] [address] Jun, [facility] [place] [facility] [address] [id number] [place] [address] 31 May, 2011 [facility] [place] [facility] [address] [id number] [place] [address] 31 May, 2011 [facility] [place] [facility] [address] [id number] [place] [address] 25 May, 2011 [facility] [place] [facility] [address] [id number] [place] [address] 24 May, 2011 [facility] [place] [facility] [address] [id number] [place] [address] 18 May, 2011 [facility] [place] [facility] [address] [id number] [place] [address] 13 May, 2011 [facility] [place] [facility] [address] [id number] [place] [address] 13 Feb, 2011 [facility] [address] [id number] [place] [address] December, [facility] [address] [id number] [place] [address] Jul, [facility] [address] [id number] [place] [address] 29 Jul, 2010 [facility] [address] [id number] [place] [address] Jul, [facility] [address] [id number] [place] [address] Jul, [facility] [address] [id number] [place] [address] Jun, [facility] [address] [id number] [place] [address] 31 Jul, 2009 [facility] [address] [id number] [place] [address] 23 Jul, 2009 [facility] [address] [id number] [place] [address] 23 Jul, 2009 [facility] [address] [facility] [id number] [place] [address] 17 Jul, 2009 [facility] [address] [id number] [place] [address] 17 Jul, 2009 [facility] [address] [id number] [place] [address] 10 Jul, 2009 [facility] [place] [facility] [address] [id number] [place] [address] 15 Jan, 2009 [facility] [place] [facility] [address] [id number] [place] [address] 16 Sep, 2008 [facility] [address] [id number] [place] [address] 11 Sep, 2008 IMMUNIZATIONS No Known Immunizations SOCIAL HISTORY Never Assessed REASON FOR VISIT followup Anxiety/ Grief PLAN OF CARE Activity Details Follow Up 2 Weeks Reason: Follow-up VITAL SIGNS MEDICATIONS Unknown Medications RESULTS No Results PROCEDURES Procedure Date Ordered Result Body Site Psychotherapy, patient &/family, 45 minutes, established patient Apr 20, 2018 INSTRUCTIONS MEDICATIONS ADMINISTERED No Known Medications [...]
--- OUTSIDE RECORDS SUMMARY | 2019-01-22 20:48 | XMS REPORT ---
Author Author CHAUNCEY COCHRAN Organization [facility] Address [address] [place] [address] Care Team Providers Care Senior Dentist Name Role Phone CHAUNCEY COCHRAN Unavailable PROBLEMS Type Condition ICD9-CM Code FIR40-XV Code Onset Dates Condition Status SNOMED Code Problem Family history of diabetes mellitus Z83.3 Active 070636972 Problem Hot flashes N95.1 Active 369901708 Problem Excessive and frequent menstruation with irregular cycle N92.1 Active 469347293 Problem Diverticulitis K57.92 Active 019457897 Problem Gastroesophageal reflux disease with esophagitis K21.0 Active 098606750 Problem Mitral valve prolapse I34.1 Active 086548245 Problem Perimenopausal N95.1 Active 163115012135296 Problem Tachycardia R00.0 Active 2000542 Problem Abnormal uterine bleeding (AUB) N93.9 Active 78167341068113 Problem History of diverticulitis Z87.19 Active 427893807506800 Problem History of colon polyps Z86.010 Active 652688295 Problem Generalized anxiety disorder F41.1 Active 523031657 Problem Dense breast tissue R92.2 Active 256986242 Problem Hypertension I10 Active 70881932 Problem History of ovarian cyst Z87.42 Active 70678523 ALLERGIES Substance Reaction Event Type Date Status Sulfamethoxazole-Trimethoprim anaphylaxis Drug Allergy Mar, Active Erythromycin rash Drug Allergy Mar, Active Hydrocodone vomiting Non Drug Allergy Mar, Active ENCOUNTERS Encounter Location Date Diagnosis [facility] [address] [facility] [id number], [place] [address] Jun, [facility] [address] [id number] [address] May, [facility] [address] [facility] [id number], [place] [address] May, [facility] [address] [address] 24 Apr, 2018 Generalized anxiety disorder F41.1 and Bereavement Z63.4 [facility] [id number] [place] [address] 17 Apr, 2018 [facility] [id number] [place] [address] 13 Apr, 2018 Diverticulitis K57.92 [facility] [id number] [place] [address] 10 Apr, 2018 Generalized anxiety disorder F41.1 and Bereavement Z63.4 [facility] [id number] [place] [address] Mar, [facility] [id number] [place] [address] Mar, Diverticulitis K57.92 [facility] [id number] [place] [address] Mar, Generalized anxiety disorder F41.1 and Bereavement Z63.4 [facility] [id number] [place] [address] Mar, Hypertension I10 [facility] [address] [place] [address] Mar, Generalized anxiety disorder F41.1 and Bereavement Z63.4 [facility] [address] [place] [address] Feb, Generalized anxiety disorder F41.1 and Bereavement Z63.4 [facility] [id number] [place] [address] Feb, [facility] [id number] [place] [address] Feb, Generalized anxiety disorder F41.1 and Bereavement Z63.4 [facility] [id number] [place] [address] Feb, Generalized anxiety disorder F41.1 and Bereavement Z63.4 [facility] [id number] [place] [address] Jan, Hypertension I10 and Acute non-recurrent maxillary sinusitis J01.00 [facility] [id number] [place] [address] December, [facility] [id number] [place] [address] December, Hypertension I10 [facility] [id number] [place] [address] December, Generalized anxiety disorder F41.1 [facility] [id number] [place] [address] Oct, Encounter for dental examination Z01.20 [facility] [address] [place] [id number] [place] [address] Oct, Encounter for dental examination Z01.20 [facility] [address] [place] [id number] [place] [address] Oct, Dental examination Z01.20 [facility] [id number] [place] [address] Oct, Generalized anxiety disorder F41.1 [facility] [id number] [place] [address] Aug, Dental examination Z01.20 [facility] [id number] [place] [address] Aug, Generalized anxiety disorder F41.1 [facility] [id number] [place] [address] Aug, [facility] [id number] [place] [address] Aug, Encounter for dental examination Z01.20 [facility] [address] [id number], [place] [address] Aug, Subacute maxillary sinusitis J01.00 [facility] [address] [id number], [place] [address] Jul, Dental examination Z01.20 [facility] [address] [id number], [place] [address] 19 Jul, 2017 Generalized anxiety disorder F41.1 [facility] [address] [id number], [place] [address] 11 Jul, 2017 Diverticulitis K57.92 [facility] [id number] [place] [address] 28 Jun, 2017 Encounter for immunization Z23 [facility] [address] [id number], [place] [address] Jun, Dental examination Z01.20 [facility] [address] [id number], [place] [address] 14 Jun, 2017 Generalized anxiety disorder F41.1 [facility] [address] [id number], [place] [address] 07 Jun, 2017 Dental examination Z01.20 [facility] [address] [facility] [id number], [place] [address] May, [facility] [address] [id number] [id number] May, Dental examination Z01.20 [facility] [address] [id number] [id number] May, Dental examination Z01.20 [facility] [address] [id number], [place] [address] May, Dental examination Z01.20 [facility] [address] [id number], [place] [address] May, [facility] [id number] [place] [address] May, Generalized anxiety disorder F41.1 [facility] [id number] [place] [address] May, Localized edema R60.0 ; Yeast vaginitis B37.3 and Gastroesophageal reflux disease with esophagitis K21.0 [facility] [id number] [place] [id number] Apr, Dental examination Z01.20 [facility] [id number] [place] [address] Apr, Dental examination Z01.20 [facility] [id number] [place] [address] Apr, Dental examination Z01.20 [facility] [id number] [place] [address] Mar, Dyspepsia R10.13 [facility] [id number] [place] [address] Mar, Generalized anxiety disorder F41.1 [facility] [id number] [place] [address] Mar, Encounter for dental examination Z01.20 [facility] [id number] [place] [id number] Mar, [facility] [id number] [place] [id number] Mar, Dental examination Z01.20 [facility] [id number] [place] [address] Feb, Hypertension I10 and Tachycardia R00.0 [facility] [id number] [place] [address] Feb, [facility] [id number] [place] [address] Feb, Generalized anxiety disorder F41.1 [facility] [address] [id number] Feb, Dental examination Z01.20 [facility] [address] [place] [address] Jan, Generalized anxiety disorder F41.1 [facility] [address] [place] [address] December, Generalized anxiety disorder F41.1 [facility] [address] [id number] December, Encounter for dental examination Z01.20 [facility] [id number] [place] [address] Nov, [facility] [id number] [place] [address] Nov, [facility] [id number] [place] [address] Nov, Generalized anxiety disorder F41.1 [facility] [id number] [place] [address] Oct, [facility] [id number] [place] [id number] Oct, Dental examination Z01.20 [facility] [id number] [place] [address] Oct, Vaginal dryness N89.8 [facility] [address] [place] [address] Oct, Pseudoseizures F44.5 [facility] [id number] [place] [address] Oct, Generalized anxiety disorder F41.1 [facility] [address] [place] [address] Sep, Abnormal uterine bleeding (AUB) N93.9 ; Vaginal dryness N89.8 and Screening breast examination Z12.39 [facility] [id number] [place] [address] 20 Sep, 2016 Dental examination Z01.20 [facility] [id number] [place] [address] 20 Sep, 2016 Generalized anxiety disorder F41.1 [place] [address] [address] 06 Sep, 2016 Unspecified ovarian cyst, right side N83.201 ; Unspecified ovarian cyst, left side N83.202 ; Yeast infection of the vagina B37.3 ; Mitral valve prolapse I34.1 and Hypertension I10 [place] [address] [address] Aug, Generalized anxiety disorder F41.1 [place] [address] [address] Jul, [facility] [address] [address] Jul, Generalized anxiety disorder F41.1 [place] [address] [address] Jun, Generalized anxiety disorder F41.1 [place] [address] [address] 28 May, 2016 Encounter for immunization Z23 [place] [address] [address] 17 May, 2016 Generalized anxiety disorder F41.1 and Depressive disorder, not elsewhere classified F32.9 [facility] [address] [address] 28 Apr, 2016 Hypertension I10 [facility] [id number] [place] [address] 22 Apr, 2016 Cervicalgia M54.2 [facility] [id number] [place] [address] 12 Sep, 2016 Cervicalgia M54.2 [facility] [address] [place] [address] Mar, Generalized anxiety disorder F41.1 and Depressive disorder, not elsewhere classified F32.9 [facility] [address] [id number] 14 Feb, 2016 Visit for dental examination Z01.20 [facility] [id number] [place] [address] 11 Feb, 2016 Pseudoseizures F44.5 ; Migraine without status migrainosus, not intractable, unspecified migraine type G43.909 and Essential hypertension I10 [facility] [id number] [place] [id number] Feb, Dental examination Z01.20 [facility] [id number] [place] [address] Feb, Generalized anxiety disorder F41.1 and Depressive disorder, not elsewhere classified F32.9 [facility] [address] [place] [address] Jan, Tachycardia R00.0 [facility] [id number] [place] [address] December, Eustachian tube dysfunction, bilateral H69.83 [facility] [id number] [place] [address] December, Generalized anxiety disorder F41.1 and Depressive disorder, not elsewhere classified F32.9 [facility] [address] [place] [address] Nov, [facility] [id number] [place] [address] Nov, [facility] [address] [place] [address] Nov, Hypertension I10 ; Onychomycosis B35.1 ; [...] and Complex cyst of left ovary N83.29 [place] [address] [address] 14 Nov, 2015 Sinusitis J32.9 [place] [address] [address] Oct, Complex cyst of left ovary N83.29 [place] [id number] [place] [address] Oct, Onychomycosis B35.1 [facility] [address] [id number] Oct, Dental examination Z01.20 [place] [address] [address] 09 Oct, 2015 Well woman exam Z01.419 [...] R92.2 and History of colon polyps Z86.010 [place] [address] [address] Oct, Generalized anxiety disorder F41.1 and Depressive disorder, not elsewhere classified F32.9 [place] [id number] [place] [address] Sep, Hypertension I10 and Onychomycosis B35.1 [facility] [id number] [place] [address] 16 Sep, 2015 Skin tags, multiple acquired L91.8 [facility] [id number] [place] [address] Aug, [facility] [id number] [place] [address] Aug, [facility] [address] [address] Aug, [facility] [id number] [place] [address] Aug, Generalized anxiety disorder F41.1 and Depressive disorder, not elsewhere classified F32.9 [facility] [id number] [place] [address] Jul, Skin lesion L98.9 [facility] [address] [address] Jun, Generalized anxiety disorder F41.1 and Depressive disorder, not elsewhere classified F32.9 [facility] [id number] [place] [address] Jun, [facility] [id number] [place] [address] Jun, Generalized anxiety disorder F41.1 [facility] [id number] [place] [address] May, Encounter for immunization Z23 and Right shoulder pain M25.511 [facility] [id number] [place] [address] Apr, [facility] [id number] [place] [address] 14 Apr, 2015 Generalized anxiety disorder 300.02 and Depressive disorder, not elsewhere classified 311 [facility] [id number] [place] [id number] Mar, Dental examination V72.2 [facility] [address], [place] [address] Mar, Generalized anxiety disorder 300.02 and Depressive disorder, not elsewhere classified 311 [facility] [address], [place] [address] Mar, Depression, major, recurrent, 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.35 and 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 [facility] [address], [place] [address] Feb, Generalized anxiety disorder 300.02 and Depressive disorder, not elsewhere classified 311 [facility] [address] [id number] Feb, Dental examination V72.2 [facility] [id number] [place] [address] Jan, Generalized anxiety disorder 300.02 and Depressive disorder, not elsewhere classified 311 [facility] [address], [place] [address] Jan, [facility] [id number] [place] [address] December, Generalized anxiety disorder 300.02 and Depressive disorder, not elsewhere classified 311 [facility] [address], [place] [address] December, Major depressive disorder, recurrent, unspecified 296.30 and Panic disorder with agoraphobia 300.21 [facility] [address], [place] [address] Nov, [facility] [id number] [place] [address] Nov, [facility] [address], [place] [address] Oct, [facility] [address] [place] [address] Oct, [facility] [place] [facility] [address] [id number] [place] [address] Oct, [facility] [place] [facility] [address] [id number] [place] [address] Oct, [facility] [place] [facility] [address] [id number] [place] [address] Sep, 2014 [facility] [place] [facility] [address] [id number] [place] [address] Sep, 2014 [facility] [place] [facility] [address] [id number] [place] [address] Sep, [facility] [place] [facility] [address] [id number] [place] [address] Sep, 2014 [facility] [place] [facility] [address] [id number] [place] [address] Sep, [facility] [place] [facility] [address] [id number] [place] [address] Sep, [facility] [place] [facility] [address] [id number] [place] [address] Sep, [facility] [place] [facility] [address] [id number] [place] [address] Sep, [facility] [place] [facility] [address] [id number] [place] [address] Sep, [facility] [place] [facility] [address] [id number] [place] [address] Sep, [facility] [place] [facility] [address] [id number] [place] [address] Aug, [facility] [place] [facility] [address] [id number] [place] [address] Aug, [facility] [place] [facility] [address] [id number] [place] [address] Jul, [facility] [place] [facility] [address] [id number] [place] [address] Jul, [facility] [place] [facility] [address] [id number] [place] [address] Jul, [facility] [place] [facility] [address] [id number] [place] [address] Jul, [facility] [place] [facility] [address] [id number] [place] [address] Jul, [facility] [place] [facility] [address] [id number] [place] [address] Jul, [facility] [place] [facility] [address] [id number] [place] [address] Jul, [facility] [place] [facility] [address] [id number] [place] [address] Jul, [facility] [place] [facility] [address] [id number] [place] [address] Jul, [facility] [place] [facility] [address] [id number] [place] [address] Jul, [facility] [place] [facility] [address] [id number] [place] [address] Jul, [facility] [place] [facility] [address] [id number] [place] [address] Jul, [facility] [place] [facility] [address] [id number] [place] [address] Jun, [facility] [place] [facility] [address] [id number] [place] [address] Jun, [facility] [place] [facility] [address] [id number] [place] [address] May, [facility] [place] [facility] [address] [id number] [place] [address] May, [facility] [place] [facility] [address] [id number] [place] [address] May, [facility] [place] [facility] [address] [id number] [place] [address] May, [facility] [place] [facility] [address] [id number] [place] [address] May, [facility] [place] [facility] [address] [id number] [place] [address] May, [facility] [place] [facility] [address] [id number] [place] [address] May, [facility] [place] [facility] [address] [id number] [place] [address] May, [facility] [place] [facility] [address] [id number] [place] [address] May, [facility] [place] [facility] [address] [id number] [place] [address] May, [facility] [place] [facility] [address] [id number] [place] [address] May, [facility] [place] [facility] [address] [id number] [place] [address] May, [facility] [place] [facility] [address] [id number], [place] [address] 30 Apr, 2014 [facility] [place] [facility] [address] [id number], [place] [address] 30 Apr, 2013 [facility] [place] [facility] [address] [id number], [place] [address] 29 Apr, 2013 [facility] [place] [facility] [address] [id number] [place] [address] 29 Apr, 2013 [facility] [place] [facility] [address] [id number] [place] [address] Apr, 2013 [facility] [place] [facility] [address] [id number] [place] [address] Apr, 2013 [facility] [place] [facility] [address] [id number] [place] [address] Feb, [facility] [place] [facility] [address] [id number] [place] [address] Feb, [facility] [place] [facility] [address] [id number] [place] [address] Feb, [facility] [place] [facility] [address] [id number] [place] [address] Feb, [facility] [place] [facility] [address] [id number] [place] [address] Feb, [facility] [place] [facility] [address] [id number] [place] [address] Feb, [facility] [place] [facility] [address] [id number] [place] [address] Jan, [facility] [place] [facility] [address] [id number] [place] [address] Jan, [facility] [place] [facility] [address] [id number] [place] [address] Jan, [facility] [place] [facility] [address] [id number] [place] [address] Jan, [facility] [place] [facility] [address] [id number] [place] [address] Jan, [facility] [place] [facility] [address] [id number] [place] [address] Jan, [facility] [place] [facility] [address] [id number] [place] [address] Jan, [facility] [place] [facility] [address] [id number] [place] [address] Jan, [facility] [place] [facility] [address] [id number] [place] [address] December, [facility] [place] [facility] [address] [id number] [place] [address] December, [facility] [place] [facility] [address] [id number] [place] [address] December, [facility] [place] [facility] [address] [id number] [place] [address] December, [facility] [place] [facility] [address] [id number] [place] [address] Nov, [facility] [place] [facility] [address] [id number] [place] [address] Nov, [facility] [place] [facility] [address] [id number] [place] [address] Nov, [facility] [place] [facility] [address] [id number] [place] [address] Nov, [facility] [place] [facility] [address] [id number] [place] [address] Nov, [facility] [place] [facility] [address] [id number] [place] [address] Nov, [facility] [place] [facility] [address] [id number] [place] [address] Nov, [facility] [place] [facility] [address] [id number] [place] [address] Nov, [facility] [place] [facility] [address] [id number] [place] [address] Oct, [facility] [place] [facility] [address] [id number] [place] [address] Oct, [facility] [place] [facility] [address] [id number] [place] [address] Sep, [facility] [place] [facility] [address] [id number] [place] [address] Sep, [facility] [place] [facility] [address] [id number] [place] [id number] Sep, [facility] [place] [facility] [address] [id number] [place] [address] Sep, [facility] [place] [facility] [address] [id number] [place] [address] Sep, [facility] [place] [facility] [address] [id number] [place] [address] Sep, [facility] [place] [facility] [address] [id number] [place] [address] Aug, [facility] [place] [facility] [address] [id number] [place] [address] Aug, [facility] [place] [facility] [address] [id number] [place] [address] Aug, [facility] [place] [facility] [address] [id number] [place] [address] Aug, [facility] [place] [facility] [address] [id number] [place] [address] Jul, [facility] [place] [facility] [address] [id number] [place] [address] Jul, [facility] [place] [facility] [address] [id number] [place] [address] Jul, [facility] [place] [facility] [address] [id number] [place] [address] Jul, [facility] [place] [facility] [address] [id number], [place] [address] Jun, [facility] [place] [facility] [address] [id number], [place] [address] Jun, [facility] [place] [facility] [address] [id number] [place] [address] May, [facility] [place] [facility] [address] [id number] [place] [address] May, [facility] [place] [facility] [address] [id number] [place] [address] May, [facility] [place] [facility] [address] [id number] [place] [address] 11 May, 2013 [facility] [address] [id number] [place] [address] 10 May, 2013 [facility] [place] [facility] [address] [id number] [place] [address] 17 Apr, 2013 [facility] [address] [id number] [place] [address] Apr, [facility] [address] [id number] [place] [address] 29 Mar, 2013 [facility] [address] [id number] [place] [address] Mar, [facility] [address] [id number] [place] [address] 15 Mar, 2013 [facility] [address] [id number] [place] [address] Mar, [facility] [address] [id number] [place] [address] Feb, [facility] [address] [id number] [place] [address] Feb, [facility] [address] [id number] [place] [address] 16 Feb, 2013 [facility] [place] [facility] [address] [id number] [place] [address] Feb, [facility] [address] [id number] [place] [address] Feb, [facility] [place] [facility] [address] [id number] [place] [address] Jan, [facility] [place] [facility] [address] [id number] [place] [address] Jan, [facility] [place] [facility] [address] [id number] [place] [address] Jan, [facility] [address] [id number] [place] [address] Jan, [facility] [address] [id number] [place] [address] Jan, [facility] [address] [id number] [place] [address] December, [facility] [address] [id number] [place] [address] December, [facility] [address] [id number] [place] [address] Nov, [facility] [address] [id number] [place] [address] Nov, [facility] [address] [id number] [place] [address] Oct, [facility] [address] [id number] [place] [address] Oct, [facility] [address] [id number] [place] [address] Oct, [facility] [address] [id number] [place] [address] Sep, [facility] [address] [id number] [place] [address] Aug, [facility] [place] [facility] [address] [id number], [place] [address] Aug, [facility] [place] [facility] [address] [id number] [place] [address] Aug, [facility] [place] [facility] [address] [id number] [place] [address] Aug, [facility] [place] [facility] [address] [id number] [place] [address] Jul, [facility] [place] [facility] [address] [id number] [place] [address] Jul, [facility] [place] [facility] [address] [id number] [place] [address] Jul, [facility] [place] [facility] [address] [id number] [place] [address] Jul, [facility] [place] [facility] [address] [facility] [id number] [place] [address] Jul, [facility] [place] [facility] [address] [id number] [place] [address] Jul, [facility] [place] [facility] [address] [id number] [place] [address] Jul, [facility] [place] [facility] [address] [id number] [place] [address] Jul, [facility] [place] [facility] [address] [facility] [id number] [place] [address] Jun, [facility] [place] [facility] [address] [id number] [place] [address] Jun, [facility] [place] [facility] [address] [facility] [id number] [place] [address] Jun, [facility] [place] [facility] [address] [facility] [id number] [place] [address] Jun, [facility] [place] [facility] [address] [facility] [id number] [place] [address] Jun, [facility] [place] [facility] [address] [facility] [id number], [place] [address] Jun, [facility] [place] [facility] [address] [id number], [place] [address] May, [facility] [place] [facility] [address] [facility] [id number] [place] [address] May, [facility] [place] [facility] [address] [facility] [id number], [place] [address] May, [facility] [place] [facility] [address] [id number] [place] [address] 17 May, 2012 [facility] [place] [facility] [address] [id number] [place] [address] 26 Apr, 2012 [facility] [place] [facility] [address] [id number] [place] [address] 06 Apr, 2012 [facility] [place] [facility] [address] [id number] [place] [address] 08 Mar, 2012 [facility] [place] [facility] [address] [id number] [place] [address] 28 Jan, 2012 [facility] [place] [facility] [address] [id number] [place] [address] 20 Jan, 2012 [facility] [place] [facility] [address] [id number] [place] [address] 16 Jan, 2012 [facility] [place] [facility] [address] [id number] [place] [address] 15 Jan, 2012 [facility] [place] [facility] [address] [id number] [place] [address] Jan, [facility] [place] [facility] [address] [id number] [place] [address] 14 Jan, 2012 [facility] [place] [facility] [address] [id number] [place] [address] Jan, [facility] [place] [facility] [address] [id number] [place] [address] December, [facility] [place] [facility] [address] [id number] [place] [address] December, [facility] [place] [facility] [address] [id number] [place] [address] December, [facility] [place] [facility] [address] [id number] [place] [address] December, [facility] [place] [facility] [address] [id number] [place] [address] Nov, [facility] [address] [id number] [place] [address] Nov, [facility] [place] [facility] [address] [id number] [place] [address] Oct, [facility] [place] [facility] [address] [id number] [place] [address] Oct, [facility] [place] [facility] [address] [id number] [place] [address] Oct, [facility] [place] [facility] [address] [id number] [place] [address] Sep, [facility] [place] [facility] [address] [id number] [place] [address] Sep, [facility] [place] [facility] [address] [id number] [place] [address] Sep, [facility] [place] [facility] [address] [id number] [place] [address] Aug, [facility] [place] [facility] [address] [id number] [place] [address] Aug, [facility] [place] [facility] [address] [id number] [place] [address] Aug, [facility] [place] [facility] [address] [id number] [place] [address] Aug, [facility] [place] [facility] [address] [id number] [place] [address] Aug, [facility] [place] [facility] [address] [id number] [place] [address] Aug, [facility] [place] [facility] [address] [id number] [place] [address] Aug, [facility] [place] [facility] [address] [id number] [place] [address] Jul, [facility] [place] [facility] [address] [id number] [place] [address] 02 Jul, 2011 [facility] [place] [facility] [address] [id number] [place] [address] 30 Jun, 2011 [facility] [place] [facility] [address] [id number] [place] [address] 28 Jun, 2011 [facility] [place] [facility] [address] [id number] [place] [address] 17 Jun, 2011 [facility] [place] [facility] [address] [id number] [place] [address] 15 Jun, 2011 [facility] [place] [facility] [address] [id number] [place] [address] 14 Jun, 2011 [facility] [place] [facility] [address] [id number] [place] [address] 14 Jun, 2011 [facility] [place] [facility] [address] [id number] [place] [address] Jun, [facility] [place] [facility] [address] [id number] [place] [address] Jun, [facility] [place] [facility] [address] [id number] [place] [address] Jun, [facility] [place] [facility] [address] [id number] [place] [address] Jun, [facility] [place] [facility] [address] [id number] [place] [address] May, [facility] [place] [facility] [address] [id number] [place] [address] May, [facility] [place] [facility] [address] [id number] [place] [address] May, [facility] [place] [facility] [address] [id number] [place] [address] 24 May, 2011 [facility] [place] [facility] [address] [id number] [place] [address] 18 May, 2011 [facility] [address] [id number] [place] [address] 13 May, 2011 [facility] [place] [facility] [address] [id number] [place] [address] 13 Feb, 2011 [facility] [place] [facility] [address] [id number] [place] [address] December, [facility] [place] [facility] [address] [id number] [place] [address] 29 Jul, 2010 [facility] [place] [facility] [address] [id number] [place] [address] 29 Jul, 2010 [facility] [place] [facility] [address] [id number] [place] [address] 22 Jul, 2010 [facility] [place] [facility] [address] [id number] [place] [address] Jul, [facility] [place] [facility] [address] [id number] [place] [address] 15 Jun, 2010 [facility] [place] [facility] [address] [id number] [place] [address] 31 Jul, 2009 [facility] [place] [facility] [address] [id number] [place] [address] 23 Jul, 2009 [facility] [place] [facility] [address] [id number] [place] [address] 23 Jul, 2009 [facility] [place] [facility] [address] [id number], [place] [address] 17 Jul, 2009 [facility] [place] [facility] [address] [id number] [place] [address] 17 Jul, 2009 [facility] [place] [facility] [address] [id number] [place] [address] 10 Jul, 2009 [facility] [place] [facility] [address] [id number] [place] [address] 15 Jan, 2009 [facility] [place] [facility] [address] [id number] [place] [address] Sep, [facility] [address] [facility] [id number] [address] Sep, IMMUNIZATIONS No Known Immunizations SOCIAL HISTORY Never Assessed REASON FOR VISIT last night started with discomfort, today has more severe pain. JStrasserRN PLAN OF CARE Activity Details Follow Up 2 Weeks Reason: VITAL SIGNS Height 66 in 2018-04-22 Weight 170.8 lbs 2018-04-22 Temperature 98.5 degrees Fahrenheit 2018-04-22 Heart Rate 90 bpm 2018-04-22 Respiratory Rate 20 2018-04-22 BMI 27.56 kg/m2 2018-04-22 Blood pressure systolic 112 mmHg 2018-04-22 Blood pressure diastolic 70 mmHg 2018-04-22 MEDICATIONS Medication Instructions Dosage Frequency Start Date End Date Duration Status Fluconazole 150 MG Orally now and may repeat in 3 days 1 tablet May, Not-Taking Inderal [place] 80 MG Orally Once a day. Take along with the 120 mg Capsule 1 capsule December, 90 days Active [place] 7.5-325 MG Orally every 4-6 hours as needed 1 tablet Not-Taking Bactroban Not-Taking Motrin Active Omeprazole 20 mg Orally twice a day 1 capsule 12h Mar, 30 day(s) Active Percocet 5-325 MG Orally every 6 hrs 1 tablet as needed 6h Not-Taking Inderal [place] 120 MG Orally Once a day. Take along with the 80mg Capsule 1 capsule December, 90 days Active Mucinex 600 MG Orally every 12 hrs 1 tablet as needed 12h Not-Taking Hydrochlorothiazide 25 MG Orally Once a day as needed TAKE ONE 90 days Active Probiotic Not-Taking Cephalexin 500 MG Orally every 6 hrs 1 capsule 6h Not-Taking Hyoscyamine Sulfate 0.125 mg Sublingual 2 times a day as needed 1 tablet by Oral route 4 times per day PRN Jul, Active Zofran 8 MG Orally TID 1 tablet 8h Mar, Active Propranolol HCl 20 mg Orally Once a day prn tachycardia 1 tablet Jan, 90 Active Azithromycin Not-Taking Cipro 500 mg Orally every 12 hrs 1 tablet 12h Mar, Apr, 14 days Active Flagyl 500 mg Orally every 8 hrs 1 tablet 8h Mar, Apr, 10 day(s) Active Flagyl 500 MG Orally 4 times a day 1 tablet 6h Not-Taking Ibuprofen 600 MG Orally Three times a day 1 tablet with food or milk as needed 8h May, Not-Taking Clorazepate Dipotassium 7.5 MG Orally 4 times a day 1 tablet as needed 6h 30 days Active Omeprazole 20 MG TAKE ONE CAPSULE BY MOUTH ONCE DAILY BEFORE MEALS Jun, 30 Active Zofran Not-Taking RESULTS No Results PROCEDURES No Known procedures [...]
--- OUTSIDE RECORDS SUMMARY | 2019-01-22 20:48 | XMS REPORT ---
Author Author KVNG MERCHANT [facility] Address [address] [place] [address] Care Team Providers Care Voice Intercept Technician Name Role Phone KVNG MERCHANT Unavailable PROBLEMS Type Condition ICD9-CM Code JAH48-CK Code Onset Dates Condition Status SNOMED Code Problem Family history of diabetes mellitus Z83.3 Active 688158941 Problem Hot flashes N95.1 Active 318888896 Problem Excessive and frequent menstruation with irregular cycle N92.1 Active 270412512 Problem Diverticulitis K57.92 Active 061721044 Problem Gastroesophageal reflux disease with esophagitis K21.0 Active 741613055 Problem Mitral valve prolapse I34.1 Active 132800803 Problem Perimenopausal N95.1 Active 619498938593073 Problem Tachycardia R00.0 Active 5706933 Problem Abnormal uterine bleeding (AUB) N93.9 Active 87746617490559 Problem History of diverticulitis Z87.19 Active 212557825174736 Problem History of colon polyps Z86.010 Active 144410769 Problem Generalized anxiety disorder F41.1 Active 584658659 Problem Dense breast tissue R92.2 Active 038682526 Problem Hypertension I10 Active 67509903 Problem History of ovarian cyst Z87.42 Active 35316516 ALLERGIES No Information ENCOUNTERS Encounter Location Date Diagnosis [facility] [address] [id number], [place] [address] Jun, [facility] [address] [id number], [place] [address] May, [facility] [address], [place] [address] May, [facility] [address] [id number] [address] Apr, Generalized anxiety disorder F41.1 and Bereavement Z63.4 [facility] [address], [place] [address] 17 Apr, 2018 [facility] [id number] [place] [address] Apr, Diverticulitis K57.92 [facility] [id number] [place] [address] Apr, Generalized anxiety disorder F41.1 and Bereavement Z63.4 [facility] [id number] [place] [address] Mar, [facility] [id number] [place] [address] Mar, Diverticulitis K57.92 [facility] [id number] [place] [address] Mar, Generalized anxiety disorder F41.1 and Bereavement Z63.4 [facility] [id number] [place] [address] Mar, Hypertension I10 [facility] [id number] [place] [address] Mar, Generalized anxiety disorder F41.1 and Bereavement Z63.4 [facility] [address] [place] [address] Feb, Generalized anxiety disorder F41.1 and Bereavement Z63.4 [facility] [address], [place] [address] Feb, [facility] [id number] [place] [address] Feb, Generalized anxiety disorder F41.1 and Bereavement Z63.4 [facility] [address] [place] [address] Feb, Generalized anxiety disorder F41.1 and Bereavement Z63.4 [facility] [address] [id number] [address] Jan, Hypertension I10 and Acute non-recurrent maxillary sinusitis J01.00 [facility] [id number] [place] [address] December, [facility] [id number] [place] [address] December, Hypertension I10 [facility] [id number] [place] [address] December, Generalized anxiety disorder F41.1 [facility] [id number] [place] [address] Oct, Encounter for dental examination Z01.20 [facility] [id number] [place] [address] Oct, Encounter for dental examination Z01.20 [facility] [address] [id number] [place] [address] Oct, Dental examination Z01.20 [facility] [id number] [place] [address] Oct, Generalized anxiety disorder F41.1 [facility] [id number] [place] [address] Aug, Dental examination Z01.20 [facility] [id number] [place] [address] Aug, Generalized anxiety disorder F41.1 [facility] [address] [place] [address] Aug, [facility] [id number] [place] [address] Aug, Encounter for dental examination Z01.20 [facility] [id number] [place] [address] Aug, Subacute maxillary sinusitis J01.00 [facility] [address] [id number], [place] [address] Jul, Dental examination Z01.20 [facility] [address] [id number], [place] [address] 19 Jul, 2017 Generalized anxiety disorder F41.1 [facility] [address] [id number], [place] [address] Jul, Diverticulitis K57.92 [facility] [id number] [place] [address] 28 Jun, 2017 Encounter for immunization Z23 [facility] [id number] [place] [address] Jun, Dental examination Z01.20 [facility] [address] [id number], [place] [address] 14 Jun, 2017 Generalized anxiety disorder F41.1 [facility] [address] [id number], [place] [address] 07 Jun, 2017 Dental examination Z01.20 [facility] [address] [id number], [place] [address] May, [facility] [address] [id number] [id number] May, Dental examination Z01.20 [facility] [id number] [place] [id number] May, Dental examination Z01.20 [facility] [address] [id number], [place] [address] May, Dental examination Z01.20 [facility] [address] [id number], [place] [address] May, [facility] [address] [id number], [place] [address] May, Generalized anxiety disorder F41.1 [facility] [address], [place] [address] May, Localized edema R60.0 ; Yeast vaginitis B37.3 and Gastroesophageal reflux disease with esophagitis K21.0 [facility] [address] [place] [id number] Apr, Dental examination Z01.20 [facility] [id number] [place] [address] Apr, Dental examination Z01.20 [facility] [id number] [place] [address] Apr, Dental examination Z01.20 [facility] [id number] [place] [address] Mar, Dyspepsia R10.13 [facility] [id number] [place] [address] Mar, Generalized anxiety disorder F41.1 [facility] [id number] [place] [address] Mar, Encounter for dental examination Z01.20 [facility] [id number] [place] [id number] Mar, [facility] [id number] [place] [id number] Mar, Dental examination Z01.20 [facility] [address] [place] [address] Feb, Hypertension I10 and Tachycardia R00.0 [facility] [id number] [place] [address] Feb, [facility] [id number] [place] [address] Feb, Generalized anxiety disorder F41.1 [facility] [id number] [place] [id number] Feb, Dental examination Z01.20 [facility] [address], [place] [address] Jan, Generalized anxiety disorder F41.1 [facility] [id number] [place] [address] December, Generalized anxiety disorder F41.1 [facility] [address] [place] [id number] December, Encounter for dental examination Z01.20 [facility] [id number] [place] [address] Nov, [facility] [id number] [place] [address] Nov, [facility] [id number] [place] [address] Nov, Generalized anxiety disorder F41.1 [facility] [id number] [place] [address] Oct, [facility] [address] [place] [id number] Oct, Dental examination Z01.20 [facility] [id number] [place] [address] Oct, Vaginal dryness N89.8 [facility] [address] [place] [address] Oct, Pseudoseizures F44.5 [facility] [address] [place] [address] Oct, Generalized anxiety disorder F41.1 [facility] [address] [place] [address] 28 Sep, 2016 Abnormal uterine bleeding (AUB) N93.9 ; Vaginal dryness N89.8 and Screening breast examination Z12.39 [facility] [address] [place] [address] Sep, Dental examination Z01.20 [facility] [id number] [place] [address] Sep, Generalized anxiety disorder F41.1 [facility] [id number] [place] [address] 06 Sep, 2016 Unspecified ovarian cyst, right side N83.201 ; Unspecified ovarian cyst, left side N83.202 ; Yeast infection of the vagina B37.3 ; Mitral valve prolapse I34.1 and Hypertension I10 [facility] [id number] [place] [address] Aug, Generalized anxiety disorder F41.1 [address] [address] Jul, [address] [address] Jul, Generalized anxiety disorder F41.1 [facility] [address] [address] Jun, Generalized anxiety disorder F41.1 [facility] [address] [address] May, Encounter for immunization Z23 [facility] [address] [address] 17 May, 2016 Generalized anxiety disorder F41.1 and Depressive disorder, not elsewhere classified F32.9 [facility] [id number] [place] [address] Apr, Hypertension I10 [facility] [id number] [place] [address] 22 Apr, 2016 Cervicalgia M54.2 [facility] [id number] [place] [address] 12 Apr, 2016 Cervicalgia M54.2 [facility] [id number] [place] [address] Mar, Generalized anxiety disorder F41.1 and Depressive disorder, not elsewhere classified F32.9 [facility] [address] [place] [id number] 14 Feb, 2016 Visit for dental examination Z01.20 [facility] [id number] [place] [address] Feb, Pseudoseizures F44.5 ; Migraine without status migrainosus, not intractable, unspecified migraine type G43.909 and Essential hypertension I10 [facility] [address] [place] [id number] 06 Feb, 2016 Dental examination Z01.20 [facility] [address] [address] Feb, Generalized anxiety disorder F41.1 and Depressive disorder, not elsewhere classified F32.9 [facility] [id number] [place] [address] Jan, Tachycardia R00.0 [facility] [id number] [place] [address] December, Eustachian tube dysfunction, bilateral H69.83 [facility] [id number] [place] [address] December, Generalized anxiety disorder F41.1 and Depressive disorder, not elsewhere classified F32.9 [facility] [id number] [place] [address] Nov, [facility] [id number] [place] [address] Nov, [facility] [id number] [place] [address] Nov, Hypertension I10 ; Onychomycosis B35.1 ; [...] and Complex cyst of left ovary N83.29 [address] [id number] [place] [address] 14 Nov, 2015 Sinusitis J32.9 [address] [address] Oct, Complex cyst of left ovary N83.[address] [address] Oct, Onychomycosis B35.1 [facility] [address] [id number] Oct, Dental examination Z01.[address] [address] Oct, Well woman exam Z01.419 ; Encounter [...] R92.2 and History of colon polyps Z86.010 [address] [facility] [id number] [place] [address] Oct, Generalized anxiety disorder F41.1 and Depressive disorder, not elsewhere classified F32.[address] [address] Sep, Hypertension I10 and Onychomycosis B35.[address] [address] 16 Sep, 2015 Skin tags, multiple acquired L91.8 [facility] [address] [place] [address] Aug, [facility] [id number] [place] [address] Aug, [facility] [id number] [place] [address] Aug, [facility] [id number] [place] [address] Aug, Generalized anxiety disorder F41.1 and Depressive disorder, not elsewhere classified F32.9 [facility] [id number] [place] [address] Jul, Skin lesion L98.9 [facility] [id number] [place] [address] Jun, Generalized anxiety disorder F41.1 and Depressive disorder, not elsewhere classified F32.9 [facility] [id number] [place] [address] Jun, [facility] [id number] [place] [address] Jun, Generalized anxiety disorder F41.1 [facility] [id number] [place] [address] May, Encounter for immunization Z23 and Right shoulder pain M25.511 [facility] [address] [place] [address] Apr, [facility] [address] [place] [address] 14 Apr, 2015 Generalized anxiety disorder 300.02 and Depressive disorder, not elsewhere classified [address] [facility] [address] [place] [id number] Mar, Dental examination V72.2 [facility] [address] [place] [address] Mar, Generalized anxiety disorder 300.02 and Depressive disorder, not elsewhere classified 311 [facility] [address], [place] [address] Mar, Depression, major, recurrent, 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.35 and 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 [facility] [address], [place] [address] Feb, Generalized anxiety disorder 300.02 and Depressive disorder, not elsewhere classified [address] [facility] [address] [address] Feb, Dental examination V72.2 [facility] [id number] [place] [address] Jan, Generalized anxiety disorder 300.02 and Depressive disorder, not elsewhere classified 311 [facility] [address], [place] [address] Jan, [facility] [id number] [place] [address] December, Generalized anxiety disorder 300.02 and Depressive disorder, not elsewhere classified 311 [facility] [address] [place] [address] December, Major depressive disorder, recurrent, unspecified 296.30 and Panic disorder with agoraphobia 300.21 [facility] [address], [place] [address] Nov, [facility] [address] [id number], [place] [address] Nov, [facility] [address], [place] [address] Oct, [facility] [address], [place] [address] Oct, [facility] [address], [place] [address] Oct, [facility] [address] [place] [address] Oct, [facility] [place] [facility] [address] [id number] [place] [address] Sep, 2014 [facility] [place] [facility] [address] [id number] [place] [address] Sep, 2014 [facility] [place] [facility] [address] [id number] [place] [address] Sep, 2014 [facility] [place] [facility] [address] [id number] [place] [address] Sep, 2014 [facility] [place] [facility] [address] [id number] [place] [address] Sep, 2014 [facility] [place] [facility] [address] [id number] [place] [address] Sep, 2014 [facility] [place] [facility] [address] [id number] [place] [address] Sep, 2014 [facility] [place] [facility] [address] [id number] [place] [address] Sep, [facility] [place] [facility] [address] [id number] [place] [address] Sep, [facility] [place] [facility] [address] [id number] [place] [address] Sep, [facility] [place] [facility] [address] [id number], [place] [address] Aug, [facility] [place] [facility] [address] [id number] [place] [address] Aug, [facility] [place] [facility] [address] [id number] [place] [address] Jul, [facility] [place] [facility] [address] [id number], [place] [address] Jul, [facility] [place] [facility] [address] [id number], [place] [address] Jul, [facility] [place] [facility] [address] [id number] [place] [address] Jul, [facility] [place] [facility] [address] [id number] [place] [address] Jul, [facility] [place] [facility] [address] [id number] [place] [address] Jul, [facility] [place] [facility] [address] [id number] [place] [address] Jul, [facility] [place] [facility] [address] [id number] [place] [address] Jul, [facility] [place] [facility] [address] [id number] [place] [address] Jul, [facility] [place] [facility] [address] [id number] [place] [address] Jul, [facility] [place] [facility] [address] [id number] [place] [address] Jul, [facility] [place] [facility] [address] [id number] [place] [address] Jul, [facility] [place] [facility] [address] [id number] [place] [address] Jun, [facility] [place] [facility] [address] [id number], [place] [address] Jun, [facility] [place] [facility] [address] [id number], [place] [address] May, [facility] [place] [facility] [address] [id number] [place] [address] May, [facility] [place] [facility] [address] [id number] [place] [address] May, [facility] [place] [facility] [address] [id number] [place] [address] May, [facility] [place] [facility] [address] [id number] [place] [address] May, [facility] [place] [facility] [address] [id number] [place] [address] May, [facility] [place] [facility] [address] [id number] [place] [address] May, [facility] [place] [facility] [address] [id number] [place] [address] May, 2013 [facility] [place] [facility] [address] [id number] [place] [address] May, [facility] [place] [facility] [address] [id number] [place] [address] May, [facility] [place] [facility] [address] [id number] [place] [address] May, [facility] [place] [facility] [address] [id number] [place] [address] May, [facility] [place] [facility] [address] [id number] [place] [address] 30 Apr, 2014 [facility] [place] [facility] [address] [id number] [place] [address] 30 Apr, 2013 [facility] [place] [facility] [address] [id number] [place] [address] 29 Apr, 2014 [facility] [place] [facility] [address] [id number] [place] [address] 29 Apr, 2013 [facility] [place] [facility] [address] [id number] [place] [address] Apr, [facility] [place] [facility] [address] [id number] [place] [address] Apr, [facility] [place] [facility] [address] [id number] [place] [address] Feb, [facility] [place] [facility] [address] [id number] [place] [address] Feb, [facility] [place] [facility] [address] [id number] [place] [address] Feb, [facility] [place] [facility] [address] [id number] [place] [address] Feb, [facility] [place] [facility] [address] [id number] [place] [address] Feb, [facility] [place] [facility] [address] [id number] [place] [address] Feb, [facility] [place] [facility] [address] [id number] [place] [address] Jan, [facility] [place] [facility] [address] [id number] [place] [address] Jan, [facility] [place] [facility] [address] [id number] [place] [address] Jan, [facility] [place] [facility] [address] [id number] [place] [address] Jan, [facility] [place] [facility] [address] [id number] [place] [address] Jan, [facility] [place] [facility] [address] [id number] [place] [address] Jan, [facility] [place] [facility] [address] [id number] [place] [address] Jan, [facility] [place] [facility] [address] [id number] [place] [address] Jan, [facility] [place] [facility] [address] [id number] [place] [address] December, [facility] [place] [facility] [address] [id number] [place] [address] December, [facility] [place] [facility] [address] [id number] [place] [address] December, [facility] [place] [facility] [address] [id number] [place] [address] December, [facility] [place] [facility] [address] [id number] [place] [address] Nov, [facility] [place] [facility] [address] [id number] [place] [address] Nov, [facility] [place] [facility] [address] [id number] [place] [address] Nov, [facility] [place] [facility] [address] [id number] [place] [address] Nov, [facility] [place] [facility] [address] [id number] [place] [address] Nov, [facility] [place] [facility] [address] [id number] [place] [address] Nov, [facility] [place] [facility] [address] [id number] [place] [address] Nov, [facility] [place] [facility] [address] [id number] [place] [address] Nov, [facility] [place] [facility] [address] [id number] [place] [address] Oct, [facility] [facility] [address] [id number] [place] [address] Oct, [facility] [place] [facility] [address] [id number] [place] [address] Sep, [facility] [place] [facility] [address] [id number] [place] [address] Sep, [facility] [facility] [address] [id number] [place] [id number] Sep, [facility] [place] [facility] [address] [id number] [place] [address] Sep, [facility] [place] [facility] [address] [id number] [place] [address] 14 Sep, 2013 [facility] [place] [facility] [address] [id number] [place] [address] 14 Sep, 2013 [facility] [place] [facility] [address] [id number] [place] [address] Aug, [facility] [place] [facility] [address] [id number] [place] [address] Aug, [facility] [place] [facility] [address] [id number] [place] [address] Aug, [facility] [place] [facility] [address] [id number] [place] [address] Aug, [facility] [address] [id number] [place] [address] Jul, [facility] [facility] [address] [id number] [place] [address] Jul, [facility] [place] [facility] [address] [id number] [place] [address] Jul, [facility] [place] [address] [id number] [place] [address] Jul, [facility] [place] [facility] [address] [id number] [place] [address] Jun, [facility] [place] [facility] [address] [id number] [place] [address] Jun, [facility] [address] [id number], [place] [address] May, [facility] [place] [facility] [address] [id number] [place] [address] May, [facility] [place] [facility] [address] [id number] [place] [address] May, [facility] [address] [id number], [place] [address] May, [facility] [address] [id number], [place] [address] May, [facility] [place] [facility] [address] [id number] [place] [address] 17 Apr, 2013 [facility] [facility] [address] [id number] [place] [address] Apr, [facility] [place] [facility] [address] [id number] [place] [address] Mar, [facility] [address] [id number] [place] [address] Mar, [facility] [facility] [address] [id number] [place] [address] Mar, [facility] [address] [id number] [place] [address] Mar, [facility] [address] [id number] [place] [address] Feb, [facility] [address] [id number] [place] [address] Feb, [facility] [address] [id number] [place] [address] Feb, [facility] [address] [id number] [place] [address] Feb, [facility] [address] [id number] [place] [address] Feb, [facility] [address] [id number] [place] [address] Jan, [facility] [address] [id number] [place] [address] Jan, [facility] [address] [id number] [place] [address] 14 Jan, 2013 [facility] [address] [id number] [place] [address] Jan, [facility] [address] [id number] [place] [address] 06 Jan, 2013 [facility] [address] [id number] [place] [address] December, [facility] [address] [id number] [place] [address] December, [facility] [address] [id number] [place] [address] Nov, [facility] [address] [id number] [place] [address] Nov, [facility] [address] [id number] [place] [address] Oct, [facility] [address] [id number] [place] [address] Oct, [facility] [address] [id number] [place] [address] Oct, [facility] [address] [id number] [place] [address] 14 Sep, 2012 [facility] [address] [id number] [place] [address] Aug, [facility] [address] [id number] [place] [address] Aug, [facility] [address] [id number] [place] [address] 15 Aug, 2012 [facility] [address] [id number] [place] [address] Aug, [facility] [address] [id number] [place] [address] Jul, [facility] [address] [id number] [place] [address] Jul, [facility] [address] [id number] [place] [address] Jul, [facility] [address] [id number] [place] [address] Jul, [facility] [address] [id number] [place] [address] Jul, [facility] [address] [id number] [place] [address] Jul, [facility] [address] [id number] [place] [address] Jul, [facility] [address] [id number] [place] [address] Jul, [facility] [address] [id number] [place] [address] Jun, [facility] [address] [id number] [place] [address] Jun, [facility] [address] [id number], [place] [address] Jun, [facility] [address] [id number], [place] [address] Jun, [facility] [address] [id number], [place] [address] Jun, [facility] [address] [id number], [place] [address] Jun, [facility] [address] [id number], [place] [address] May, [facility] [address] [id number], [place] [address] May, [facility] [address] [id number], [place] [address] May, [facility] [address] [id number], [place] [address] May, [facility] [address] [id number] [place] [address] 26 Apr, 2012 [facility] [address] [id number] [place] [address] 06 Apr, 2012 [facility] [address] [id number] [place] [address] 08 Mar, 2012 [facility] [address] [id number] [place] [address] 28 Jan, 2012 [facility] [address] [id number] [place] [address] 20 Jan, 2012 [facility] [address] [id number] [place] [address] 16 Jan, 2012 [facility] [address] [id number] [place] [address] 15 Jan, 2012 [facility] [address] [id number] [place] [address] 14 Jan, 2012 [facility] [address] [id number] [place] [address] 14 Jan, 2012 [facility] [address] [id number] [place] [address] 07 Jan, 2012 [facility] [address] [id number] [place] [address] December, [facility] [address] [id number] [place] [address] December, [facility] [address] [id number] [place] [address] December, [facility] [address] [id number] [place] [address] December, [facility] [address] [id number] [place] [address] Nov, [facility] [address] [id number] [place] [address] 05 Nov, 2011 [facility] [address] [id number] [place] [address] 29 Oct, 2011 [facility] [address] [id number] [place] [address] 28 Oct, 2011 [facility] [address] [id number] [place] [address] 15 Oct, 2011 [facility] [address] [id number] [place] [address] Sep, [facility] [address] [id number] [place] [address] Sep, [facility] [address] [id number] [place] [address] Sep, [facility] [address] [id number] [place] [address] Aug, [facility] [address] [id number] [place] [address] Aug, [facility] [address] [id number] [place] [address] Aug, [facility] [address] [id number] [place] [address] Aug, [facility] [address] [id number] [place] [address] Aug, [facility] [address] [id number] [place] [address] Aug, [facility] [address] [id number] [place] [address] Aug, [facility] [address] [id number] [place] [address] Jul, [facility] [address] [id number] [place] [address] Jul, [facility] [address] [id number], [place] [address] 30 Jun, 2011 [facility] [address] [id number] [place] [address] 28 Jun, 2011 [facility] [address] [id number] [place] [address] 17 Jun, 2011 [facility] [address] [id number] [place] [address] 15 Jun, 2011 [facility] [address] [id number] [place] [address] 14 Jun, 2011 [facility] [address] [id number] [place] [address] 14 Jun, 2011 [facility] [address] [id number] [place] [address] Jun, [facility] [address] [id number] [place] [address] Jun, [facility] [address] [id number] [place] [address] Jun, [facility] [address] [id number] [place] [address] Jun, [facility] [address] [id number] [place] [address] 31 May, 2011 [facility] [address] [id number], [place] [address] 31 May, 2011 [facility] [address] [id number], [place] [address] 25 May, 2011 [facility] [address] [id number] [place] [address] 24 May, 2011 [facility] [address] [id number] [place] [address] 18 May, 2011 [facility] [address] [id number] [place] [address] 13 May, 2011 [facility] [address] [id number] [place] [address] 13 Feb, 2011 [facility] [address] [id number] [place] [address] December, [facility] [address] [id number] [place] [address] Jul, [facility] [address] [id number] [place] [address] 29 Jul, 2010 [facility] [address] [id number] [place] [address] Jul, [facility] [address] [id number] [place] [address] Jul, [facility] [address] [id number] [place] [address] Jun, [facility] [address] [id number] [place] [address] 31 Jul, 2009 [facility] [address] [id number] [place] [address] 23 Jul, 2009 [facility] [address] [id number] [place] [address] 23 Jul, 2009 [facility] [address] [id number] [place] [address] 17 Jul, 2009 [facility] [address] [id number] [place] [address] 17 Jul, 2009 [facility] [address] [id number] [place] [address] 10 Jul, 2009 [facility] [address] [id number] [place] [address] 15 Jan, 2009 [facility] [address] [id number] [place] [address] 16 Sep, 2008 [facility] [address] [id number] [place] [address] 11 Sep, 2008 IMMUNIZATIONS No Known Immunizations SOCIAL HISTORY Never Assessed REASON FOR VISIT followup Anxiety/ Grief PLAN OF CARE Activity Details Follow Up 2 Weeks Reason: Follow-up VITAL SIGNS MEDICATIONS Unknown Medications RESULTS No Results PROCEDURES Procedure Date Ordered Result Body Site Psychotherapy, patient &/family, 30 minutes, established patient May 04, 2018 INSTRUCTIONS MEDICATIONS ADMINISTERED No Known Medications [...]
--- OUTSIDE RECORDS SUMMARY | 2019-01-22 20:49 | XMS REPORT ---
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 Name Role Phone LETTY WILKINS Unavailable PROBLEMS Type Condition ICD9-CM Code [id number] Code Onset Dates Condition Status SNOMED Code Problem Family history of diabetes mellitus Z83.3 Active 930840973 Problem Hot flashes N95.1 Active 077057682 Problem Excessive and frequent menstruation with irregular cycle N92.1 Active 215070812 Problem Diverticulitis K57.92 Active 048487359 Problem Gastroesophageal reflux disease with esophagitis K21.0 Active 687315546 Problem Mitral valve prolapse I34.1 Active 464412977 Problem Perimenopausal N95.1 Active 470935717289266 Problem Tachycardia R00.0 Active 3148172 Problem Abnormal uterine bleeding (AUB) N93.9 Active 80223122735996 Problem History of diverticulitis Z87.19 Active 761803340070945 Problem History of colon polyps Z86.010 Active 526410998 Problem Generalized anxiety disorder F41.1 Active 314262227 Problem Dense breast tissue R92.2 Active 431526954 Problem Hypertension I10 Active 81622225 Problem History of ovarian cyst Z87.42 Active 59508322 ALLERGIES No Information ENCOUNTERS Encounter Location Date Diagnosis [facility] [place] [address] [facility] [id number] [address] Jun, [facility] [place] [id number] [address] May, [facility] [place] [id number] [address] May, [facility] [place] [id number] [address] Apr, Generalized anxiety disorder F41.1 and Bereavement Z63.4 [facility] [place] [address] [address] 17 Apr, 2018 [facility] [place] [id number] [place] [address] Apr, Diverticulitis K57.92 [facility] [place] [address] [address] Apr, Generalized anxiety disorder F41.1 and Bereavement Z63.4 [facility] [address] [facility] [id number] [place] [address] Mar, [facility] [id number] [place] [address] Mar, Diverticulitis K57.92 [facility] [place] [id number] [place] [address] Mar, Generalized anxiety disorder F41.1 and Bereavement Z63.4 [facility] [place] [address] [place] [address] Mar, Hypertension I10 [facility] [place] [id number] [place] [address] Mar, Generalized anxiety disorder F41.1 and Bereavement Z63.4 [facility] [place] [address] [address] Feb, Generalized anxiety disorder F41.1 and Bereavement Z63.4 [facility] [place] [address] [address] Feb, [facility] [place] [id number] [place] [address] Feb, Generalized anxiety disorder F41.1 and Bereavement Z63.4 [facility] [place] [id number] [address] Feb, Generalized anxiety disorder F41.1 and Bereavement Z63.4 [place] [address] [address] Jan, Hypertension I10 and Acute non-recurrent maxillary sinusitis J01.00 [facility] [place] [id number] [place] [address] December, [facility] [place] [id number] [place] [address] December, Hypertension I10 [facility] [place] [id number] [place] [address] December, Generalized anxiety disorder F41.1 [facility] [id number] [place] [address] Oct, Encounter for dental examination Z01.20 [facility] [address] [id number] [place] [address] Oct, Encounter for dental examination Z01.20 [facility] [address] [id number] [place] [address] Oct, Dental examination Z01.20 [facility] [place] [id number] [place] [address] Oct, Generalized anxiety disorder F41.1 [facility] [address] [id number] [place] [address] Aug, Dental examination Z01.20 [facility] [place] [id number] [place] [address] Aug, Generalized anxiety disorder F41.1 [facility] [place] [id number] [place] [address] Aug, [facility] [address] [id number] [place] [address] Aug, Encounter for dental examination Z01.20 [facility] [place] [address] [place] [address] Aug, Subacute maxillary sinusitis J01.00 [facility] [address] [id number] [address] Jul, Dental examination Z01.20 [facility] [place] [address] [facility] [id number] [place] [address] Jul, Generalized anxiety disorder F41.1 [facility] [place] [address] [id number] [place] [address] Jul, Diverticulitis K57.92 [facility] [place] [address] [id number] [place] [address] Jun, Encounter for immunization Z23 [facility] [address] [id number] [place] [address] Jun, Dental examination Z01.20 [facility] [place] [address] [id number] [place] [address] Jun, Generalized anxiety disorder F41.1 [facility] [address] [id number] [place] [address] 07 Jun, 2017 Dental examination Z01.20 [facility] [place] [address] [id number] [place] [address] May, [facility] [id number] [place] [address] [id number] May, Dental examination Z01.[address] [facility] [address] [id number] [place] [address] [id number] May, Dental examination Z01.20 [facility] [id number] [place] [address] May, Dental examination Z01.20 [facility] [place] [id number] [place] [address] May, [facility] [place] [address] [id number] [address] May, Generalized anxiety disorder F41.1 [facility] [place] [address] [place] [address] May, Localized edema R60.0 ; Yeast vaginitis B37.3 and Gastroesophageal reflux disease with esophagitis K21.[address] [facility] [address] [id number] [place] [address] [id number] Apr, Dental examination Z01.20 [facility] [address] [id number] [place] [address] Apr, Dental examination Z01.20 [facility] [id number] [place] [address] Apr, Dental examination Z01.20 [facility] [place] [id number] [place] [address] Mar, Dyspepsia R10.13 [facility] [place] [id number] [place] [address] Mar, Generalized anxiety disorder F41.1 [facility] [id number] [place] [address] Mar, Encounter for dental examination Z01.[address] [facility] [id number] [place] [address] [id number] Mar, [facility] [id number] [place] [address] [id number] Mar, Dental examination Z01.20 [facility] [place] [id number] [place] [address] Feb, Hypertension I10 and Tachycardia R00.0 [facility] [address] [id number] [place] [address] Feb, [facility] [place] [id number] [place] [address] Feb, Generalized anxiety disorder F41.[address] [facility] [id number] [place] [address] [id number] Feb, Dental examination Z01.20 [facility] [place] [address] [address] Jan, Generalized anxiety disorder F41.1 [facility] [place] [address] [place] [address] December, Generalized anxiety disorder F41.[address] [facility] [id number] [place] [address] [id number] December, Encounter for dental examination Z01.20 [facility] [place] [id number] [place] [address] Nov, [facility] [place] [id number] [place] [address] Nov, [facility] [place] [id number] [place] [address] Nov, Generalized anxiety disorder F41.1 [facility] [place] [id number] [place] [address] Oct, [facility] [address] [place] [address] [id number] Oct, Dental examination Z01.20 [facility] [place] [id number] [place] [address] Oct, Vaginal dryness N89.8 [facility] [place] [address] [place] [address] Oct, Pseudoseizures F44.5 [facility] [place] [address] [place] [address] Oct, Generalized anxiety disorder F41.1 [facility] [place] [id number] [place] [address] 28 Sep, 2016 Abnormal uterine bleeding (AUB) N93.9 ; Vaginal dryness N89.8 and Screening breast examination Z12.39 [facility] [place] [address] [place] [address] Sep, Dental examination Z01.20 [facility] [place] [id number] [place] [address] Sep, Generalized anxiety disorder F41.1 [facility] [place] [id number] [place] [address] 06 Sep, 2016 Unspecified ovarian cyst, right side N83.201 ; Unspecified ovarian cyst, left side N83.202 ; Yeast infection of the vagina B37.3 ; Mitral valve prolapse I34.1 and Hypertension I10 [facility] [place] [id number] [place] [address] Aug, Generalized anxiety disorder F41.1 [facility] [place] [address] [address] Jul, [facility] [place] [address] [address] Jul, Generalized anxiety disorder F41.1 [facility] [place] [address] [address] Jun, Generalized anxiety disorder F41.1 [facility] [place] [address] [address] 28 May, 2016 Encounter for immunization Z23 [facility] [place] [address] [address] 17 May, 2016 Generalized anxiety disorder F41.1 and Depressive disorder, not elsewhere classified F32.9 [facility] [place] [id number] [place] [address] 28 Apr, 2016 Hypertension I10 [facility] [place] [id number] [place] [address] 22 Apr, 2016 Cervicalgia M54.2 [facility] [id number] [place] [address] 12 Apr, 2016 Cervicalgia M54.2 [facility] [place] [address] [address] Mar, Generalized anxiety disorder F41.1 and Depressive disorder, not elsewhere classified F32.[address] [facility] [address] [place] [address] [id number] 14 Feb, 2016 Visit for dental examination Z01.20 [facility] [place] [id number] [place] [address] 11 Feb, 2016 Pseudoseizures F44.5 ; Migraine without status migrainosus, not intractable, unspecified migraine type G43.909 and Essential hypertension I10 [facility] [address] [place] [address] [id number] 06 Feb, 2016 Dental examination Z01.20 [facility] [place] [id number] [place] [address] 05 Feb, 2016 Generalized anxiety disorder F41.1 and Depressive disorder, not elsewhere classified F32.9 [facility] [place] [id number] [place] [address] Jan, Tachycardia R00.0 [facility] [place] [id number] [place] [address] December, Eustachian tube dysfunction, bilateral H69.83 [facility] [place] [id number] [place] [address] December, Generalized anxiety disorder F41.1 and Depressive disorder, not elsewhere classified F32.9 [facility] [place] [id number] [place] [address] Nov, [facility] [place] [id number] [place] [address] Nov, [facility] [place] [id number] [place] [address] Nov, Hypertension I10 ; Onychomycosis B35.1 ; [...] and Complex cyst of left ovary N83.29 [place] [address] [place] [address] 14 Nov, 2015 Sinusitis J32.9 [place] [id number] [place] [address] Oct, Complex cyst of left ovary N83.29 [place] [id number] [place] [address] Oct, Onychomycosis B35.[address] [facility] [id number] [place] [address] [id number] Oct, Dental examination Z01.[address] [address] Oct, Well woman exam Z01.419 ; Encounter [...] R92.2 and History of colon polyps Z86.010 [place] [id number] [place] [address] Oct, Generalized anxiety disorder F41.1 and Depressive disorder, not elsewhere classified F32.9 [place] [id number] [place] [address] Sep, Hypertension I10 and Onychomycosis B35.1 [place] [id number] [place] [address] Sep, Skin tags, multiple acquired L91.8 [facility] [place] [address] [place] [address] Aug, [facility] [place] [id number] [place] [address] Aug, [facility] [place] [id number] [place] [address] Aug, [facility] [place] [id number] [place] [address] Aug, Generalized anxiety disorder F41.1 and Depressive disorder, not elsewhere classified F32.9 [facility] [place] [id number] [place] [address] Jul, Skin lesion L98.9 [facility] [place] [id number] [place] [address] Jun, Generalized anxiety disorder F41.1 and Depressive disorder, not elsewhere classified F32.9 [facility] [place] [id number] [place] [address] Jun, [facility] [place] [id number] [place] [address] Jun, Generalized anxiety disorder F41.1 [facility] [place] [id number] [place] [address] May, Encounter for immunization Z23 and Right shoulder pain M25.511 [facility] [place] [address] [place] [address] 28 Apr, 2015 [facility] [place] [address] [place] [address] 14 Apr, 2015 Generalized anxiety disorder 300.02 and Depressive disorder, not elsewhere classified [address] 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 [address] [place] [address] [id number] Feb, Dental examination V72.2 [facility] [place] [id number] [place] [address] 09 Jan, 2015 Generalized anxiety disorder 300.02 and Depressive disorder, not elsewhere classified 311 [facility] [place] [id number] [place] [address] Jan, [facility] [place] [id number] [place] [address] December, Generalized anxiety disorder 300.02 and Depressive disorder, not elsewhere classified 311 [facility] [place] [address] [place] [address] December, Major depressive disorder, recurrent, unspecified 296.30 and Panic disorder with agoraphobia 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 [facility] [place] [address] [address] Nov, [facility] [place] [id number] [place] [address] Nov, [facility] [place] [id number] [place] [address] Oct, [facility] [place] [id number] [place] [address] Oct, [facility] [place] [address] [address] Oct, [facility] [place] [facility] [address] [id number] [place] [address] Oct, [facility] [place] [facility] [address] [id number] [place] [address] Sep, 2014 [facility] [place] [facility] [address] [id number] [place] [address] Sep, 2014 [facility] [place] [facility] [address] [id number] [place] [address] Sep, 2014 [facility] [place] [facility] [address] [id number] [place] [address] Sep, 2014 [facility] [place] [facility] [address] [id number] [place] [address] Sep, 2014 [facility] [place] [facility] [address] [facility] [id number] [place] [address] Sep, 2014 [facility] [place] [facility] [address] [id number] [place] [address] Sep, 2014 [facility] [place] [facility] [address] [id number] [place] [address] Sep, 2014 [facility] [place] [facility] [address] [facility] [id number] [place] [address] Sep, 2014 [facility] [place] [facility] [address] [facility] [id number] [place] [address] Sep, 2014 [facility] [place] [facility] [address] [id number] [address] Aug, [facility] [place] [facility] [address] [id number] [place] [address] Aug, [facility] [place] [facility] [address] [id number] [place] [address] Jul, [facility] [place] [facility] [address] [facility] [id number] [place] [address] Jul, [facility] [place] [facility] [address] [id number] [place] [address] Jul, [facility] [place] [facility] [address] [id number] [place] [address] Jul, [facility] [place] [facility] [address] [id number] [place] [address] Jul, [facility] [place] [facility] [address] [id number] [place] [address] Jul, [facility] [place] [facility] [address] [id number] [place] [address] Jul, [facility] [place] [facility] [address] [id number] [place] [address] Jul, [facility] [place] [facility] [address] [id number] [place] [address] Jul, [facility] [place] [facility] [address] [id number] [place] [address] Jul, [facility] [place] [facility] [address] [id number] [place] [address] Jul, [facility] [place] [facility] [address] [id number] [place] [address] Jul, [facility] [place] [facility] [address] [facility] [id number] [place] [address] Jun, [facility] [place] [facility] [address] [id number] [place] [address] Jun, [facility] [place] [facility] [address] [id number] [place] [address] May, [facility] [place] [facility] [address] [id number] [place] [address] May, [facility] [place] [facility] [address] [id number] [place] [address] May, [facility] [place] [facility] [address] [id number] [place] [address] May, [facility] [place] [facility] [address] [id number] [place] [address] May, [facility] [place] [facility] [address] [id number] [place] [address] May, [facility] [place] [facility] [address] [id number] [place] [address] May, [facility] [place] [facility] [address] [id number] [place] [address] May, [facility] [place] [facility] [address] [id number] [place] [address] May, [facility] [place] [facility] [address] [id number] [place] [address] May, [facility] [place] [facility] [address] [id number] [place] [address] May, [facility] [place] [facility] [address] [id number] [place] [address] May, [facility] [place] [facility] [address] [id number] [place] [address] Apr, [facility] [place] [facility] [address] [id number] [place] [address] 30 Apr, 2014 [facility] [place] [facility] [address] [id number] [place] [address] 29 Apr, 2014 [facility] [place] [facility] [address] [id number] [place] [address] 29 Apr, 2013 [facility] [place] [facility] [address] [id number] [place] [address] Apr, [facility] [place] [facility] [address] [id number] [place] [address] Apr, [facility] [place] [facility] [address] [id number] [place] [address] Feb, [facility] [place] [facility] [address] [id number] [place] [address] Feb, [facility] [place] [facility] [address] [id number] [place] [address] Feb, [facility] [place] [facility] [address] [id number] [place] [address] Feb, [facility] [place] [facility] [address] [id number] [place] [address] Feb, [facility] [place] [facility] [address] [id number] [place] [address] Feb, [facility] [place] [facility] [address] [id number] [place] [address] Jan, [facility] [place] [facility] [address] [id number] [place] [address] Jan, [facility] [place] [facility] [address] [id number] [place] [address] Jan, [facility] [place] [facility] [address] [id number] [place] [address] Jan, [facility] [place] [facility] [address] [id number] [place] [address] Jan, [facility] [place] [facility] [address] [id number] [place] [address] Jan, [facility] [place] [facility] [address] [id number] [place] [address] Jan, [facility] [place] [facility] [address] [id number] [place] [address] Jan, [facility] [place] [facility] [address] [id number] [place] [address] December, [facility] [place] [facility] [address] [id number] [place] [address] December, [facility] [place] [facility] [address] [id number] [place] [address] December, [facility] [place] [facility] [address] [id number] [place] [address] December, [facility] [address] [id number] [place] [address] Nov, [facility] [place] [facility] [address] [id number] [place] [address] Nov, [facility] [place] [facility] [address] [id number] [place] [address] Nov, [facility] [place] [facility] [address] [id number] [place] [address] Nov, [facility] [place] [facility] [address] [id number] [place] [address] Nov, [facility] [place] [facility] [address] [id number] [place] [address] Nov, [facility] [place] [facility] [address] [id number] [place] [address] Nov, [facility] [place] [facility] [address] [id number] [place] [address] Nov, [facility] [place] [facility] [address] [id number] [place] [address] Oct, [facility] [place] [facility] [address] [id number] [place] [address] Oct, [facility] [place] [facility] [address] [id number] [place] [address] Sep, [facility] [place] [facility] [address] [id number] [place] [address] Sep, [facility] [place] [facility] [address] [id number] [place] [id number] Sep, [facility] [place] [facility] [address] [id number] [place] [address] Sep, [facility] [place] [facility] [address] [id number] [place] [address] 14 Sep, 2013 [facility] [place] [facility] [address] [id number] [place] [address] 14 Sep, 2013 [facility] [place] [facility] [address] [id number] [place] [address] Aug, [facility] [place] [facility] [address] [id number] [place] [address] Aug, [facility] [place] [facility] [address] [id number] [place] [address] Aug, [facility] [place] [facility] [address] [id number] [place] [address] Aug, [facility] [place] [facility] [address] [id number] [place] [address] Jul, [facility] [place] [facility] [address] [id number] [place] [address] Jul, [facility] [place] [facility] [address] [id number] [place] [address] Jul, [facility] [place] [facility] [address] [id number] [place] [address] Jul, [facility] [place] [facility] [address] [id number] [place] [address] Jun, [facility] [place] [facility] [address] [id number] [place] [address] Jun, [facility] [place] [facility] [address] [id number] [place] [address] May, [facility] [place] [facility] [address] [id number] [place] [address] May, [facility] [place] [facility] [address] [id number] [place] [address] May, [facility] [place] [facility] [address] [id number] [place] [address] May, [facility] [place] [facility] [address] [id number] [place] [address] 10 May, 2013 [facility] [place] [facility] [address] [id number] [place] [address] 17 Apr, 2013 [facility] [place] [facility] [address] [id number] [place] [address] Apr, [facility] [place] [facility] [address] [id number] [place] [address] 29 Mar, 2013 [facility] [place] [facility] [address] [id number] [place] [address] Mar, [facility] [place] [facility] [address] [id number] [place] [address] Mar, [facility] [place] [facility] [address] [id number] [place] [address] Mar, [facility] [place] [facility] [address] [id number] [place] [address] Feb, [facility] [place] [facility] [address] [id number] [place] [address] Feb, [facility] [place] [facility] [address] [id number] [place] [address] Feb, [facility] [place] [facility] [address] [id number] [place] [address] Feb, [facility] [place] [facility] [address] [id number] [place] [address] Feb, [facility] [place] [facility] [address] [id number] [place] [address] Jan, [facility] [place] [facility] [address] [id number] [place] [address] Jan, [facility] [place] [facility] [address] [id number] [place] [address] 14 Jan, 2013 [facility] [place] [facility] [address] [id number] [place] [address] Jan, [facility] [place] [facility] [address] [id number] [place] [address] Jan, [facility] [address] [id number] [place] [address] December, [facility] [address] [id number] [place] [address] December, [facility] [address] [id number] [place] [address] Nov, [facility] [address] [id number] [place] [address] Nov, [facility] [address] [id number] [place] [address] Oct, [facility] [address] [id number] [place] [address] Oct, [facility] [address] [id number] [place] [address] Oct, [facility] [address] [id number] [place] [address] Sep, [facility] [address] [id number] [place] [address] Aug, [facility] [address] [id number] [place] [address] Aug, [facility] [address] [id number] [place] [address] Aug, [facility] [address] [id number] [place] [address] Aug, [facility] [address] [id number] [place] [address] Jul, [facility] [address] [id number] [place] [address] Jul, [facility] [address] [id number] [place] [address] Jul, [facility] [place] [facility] [address] [id number] [place] [address] Jul, [facility] [place] [facility] [address] [id number] [place] [address] Jul, [facility] [place] [facility] [address] [id number] [place] [address] Jul, [facility] [place] [facility] [address] [id number] [place] [address] Jul, [facility] [place] [facility] [address] [id number] [place] [address] Jul, [facility] [place] [facility] [address] [id number] [place] [address] Jun, [facility] [place] [facility] [address] [id number] [place] [address] Jun, [facility] [place] [facility] [address] [id number] [place] [address] Jun, [facility] [place] [facility] [address] [id number] [place] [address] Jun, [facility] [place] [facility] [address] [id number] [place] [address] Jun, [facility] [place] [facility] [address] [id number] [place] [address] Jun, [facility] [place] [facility] [address] [id number] [place] [address] May, [facility] [place] [facility] [address] [id number] [place] [address] May, [facility] [place] [facility] [address] [id number] [place] [address] May, [facility] [place] [facility] [address] [id number] [place] [address] May, [facility] [place] [facility] [address] [id number] [place] [address] 26 Apr, 2012 [facility] [address] [id number] [place] [address] 06 Apr, 2012 [facility] [place] [facility] [address] [id number] [place] [address] 08 Mar, 2012 [facility] [address] [id number] [place] [address] 28 Jan, 2012 [facility] [place] [facility] [address] [id number] [place] [address] 20 Jan, 2012 [facility] [address] [id number] [place] [address] 16 Jan, 2012 [facility] [address] [id number] [place] [address] 15 Jan, 2012 [facility] [address] [id number] [place] [address] 14 Jan, 2012 [facility] [address] [id number] [place] [address] 14 Jan, 2012 [facility] [address] [id number] [place] [address] 07 Jan, 2012 [facility] [address] [id number] [place] [address] December, [facility] [place] [facility] [address] [id number] [place] [address] December, [facility] [address] [id number] [place] [address] December, [facility] [place] [facility] [address] [id number] [place] [address] December, [facility] [place] [facility] [address] [id number] [place] [address] Nov, [facility] [place] [facility] [address] [id number] [place] [address] Nov, [facility] [address] [id number] [place] [address] 29 Oct, 2011 [facility] [place] [facility] [address] [id number] [place] [address] 28 Oct, 2011 [facility] [place] [facility] [address] [id number] [place] [address] 15 Oct, 2011 [facility] [place] [facility] [address] [id number] [place] [address] Sep, [facility] [place] [facility] [address] [id number] [place] [address] Sep, [facility] [place] [facility] [address] [id number] [place] [address] Sep, [facility] [place] [facility] [address] [id number] [place] [address] Aug, [facility] [place] [facility] [address] [id number] [place] [address] Aug, [facility] [place] [facility] [address] [id number] [place] [address] Aug, [facility] [place] [facility] [address] [id number] [place] [address] Aug, [facility] [place] [facility] [address] [id number] [place] [address] Aug, [facility] [place] [facility] [address] [id number] [place] [address] Aug, [facility] [place] [facility] [address] [id number] [place] [address] Aug, [facility] [place] [facility] [address] [id number] [place] [address] Jul, [facility] [place] [facility] [address] [id number] [place] [address] Jul, [facility] [place] [facility] [address] [id number] [place] [address] 30 Jun, 2011 [facility] [place] [facility] [address] [id number] [place] [address] 28 Jun, 2011 [facility] [place] [facility] [address] [id number] [place] [address] 17 Jun, 2011 [facility] [place] [facility] [address] [id number] [place] [address] 15 Jun, 2011 [facility] [place] [facility] [address] [id number] [place] [address] 14 Jun, 2011 [facility] [place] [facility] [address] [id number] [place] [address], [place] [address] 14 Jun, 2011 [facility] [place] [facility] [address] [id number] [place] [address] 07 Jun, 2011 [facility] [place] [facility] [address] [facility] [id number] [place] [address] 07 Jun, 2011 [facility] [place] [facility] [address] [id number] [place] [address] 02 Jun, 2011 [facility] [place] [facility] [address] [id number] [place] [address] 02 Jun, 2011 [facility] [place] [facility] [address] [facility] [id number] [place] [address] 31 May, 2011 [facility] [place] [facility] [address] [id number] [place] [address] 31 May, 2011 [facility] [place] [facility] [address] [id number] [place] [address] 25 May, 2011 [facility] [place] [facility] [address] [id number] [place] [address] 24 May, 2011 [facility] [place] [facility] [address] [facility] [id number] [place] [address] 18 May, 2011 [facility] [place] [facility] [address] [id number] [place] [address] 13 May, 2011 [facility] [place] [facility] [address] [id number] [place] [address] 13 Feb, 2011 [facility] [address] [id number] [place] [address] December, [facility] [address] [id number] [place] [address] Jul, [facility] [address] [id number] [place] [address] Jul, [facility] [address] [id number] [place] [address] Jul, [facility] [address] [id number] [place] [address] Jul, [facility] [address] [id number] [place] [address] Jun, [facility] [address] [id number] [place] [address] Jul, [facility] [address] [id number] [place] [address] Jul, [facility] [address] [id number] [place] [address] 23 Jul, 2009 [facility] [address] [id number] [place] [address] 17 Jul, 2009 [facility] [address] [id number] [place] [address] 17 Jul, 2009 [facility] [address] [id number] [place] [address] 10 Jul, 2009 [facility] [address] [id number] [place] [address] 15 Jan, 2009 [facility] [address] [id number] [place] [address] 16 Sep, 2008 [facility] [address] [id number] [place] [address] Sep, IMMUNIZATIONS No Known Immunizations SOCIAL HISTORY Never Assessed REASON FOR VISIT 2 week f/u appointment PLAN OF CARE VITAL SIGNS MEDICATIONS Unknown [...]
[2019-01-22 20:50] LABS: BILIRUBIN,URINE NEGATIVE (NEGATIVE); CLARITY,URINE CLEAR; GLUCOSE, URINE (UA) NEGATIVE (NEGATIVE); KETONES,URINE NEGATIVE (NEGATIVE); LEUKOCYTE ESTERASE ,URINE 1+ (NEGATIVE); NITRITE,URINE NEGATIVE (NEGATIVE); PH,URINE 6 (5-9); PROTEIN,URINE 1+ (NEGATIVE); UROBILINOGEN,URINE NORMAL (NORMAL)
--- OUTSIDE RECORDS SUMMARY | 2019-01-22 20:50 | XMS REPORT ---
Author Author LETTY WILKINS Organization [facility] Address [address] [place] [address] Care Team Providers Care Bilingual Sales Consultant Name Role Phone LETTY WILKINS Unavailable PROBLEMS Type Condition ICD9-CM Code TOL75-LR Code Onset Dates Condition Status SNOMED Code Problem Family history of diabetes mellitus Z83.3 Active 139102607 Problem Hot flashes N95.1 Active 154527809 Problem Excessive and frequent menstruation with irregular cycle N92.1 Active 768538170 Problem Diverticulitis K57.92 Active 226559492 Problem Gastroesophageal reflux disease with esophagitis K21.0 Active 150248488 Problem Mitral valve prolapse I34.1 Active 309218971 Problem Perimenopausal N95.1 Active 783385769968499 Problem Tachycardia R00.0 Active 2377685 Problem Abnormal uterine bleeding (AUB) N93.9 Active 72905990199194 Problem History of diverticulitis Z87.19 Active 555699195230100 Problem History of colon polyps Z86.010 Active 478758555 Problem Generalized anxiety disorder F41.1 Active 134547237 Problem Dense breast tissue R92.2 Active 507230260 Problem Hypertension I10 Active 36338329 Problem History of ovarian cyst Z87.42 Active 85367984 ALLERGIES No Information ENCOUNTERS Encounter Location Date Diagnosis [facility] [id number] [address] May, [facility] [id number] [address] May, [facility] [id number] [address] Apr, [facility] [id number] [address] Apr, [facility] [id number] [place] [address] 13 Apr, 2018 Diverticulitis K57.92 [facility] [id number] [place] [address] Apr, Generalized anxiety disorder F41.1 and Bereavement Z63.4 [facility] [id number] [place] [address] Mar, [facility] [id number] [place] [address] Mar, Diverticulitis K57.92 [facility] [id number] [place] [address] Mar, Generalized anxiety disorder F41.1 and Bereavement Z63.4 [facility] [facility] [id number] [place] [address] Mar, Hypertension I10 [facility] [id number] [place] [address] Mar, Generalized anxiety disorder F41.1 and Bereavement Z63.4 [facility] [id number] [place] [address] Feb, Generalized anxiety disorder F41.1 and Bereavement Z63.4 [facility] [id number] [place] [address] Feb, [facility] [id number] [place] [address] Feb, Generalized anxiety disorder F41.1 and Bereavement Z63.4 [facility] [id number] [place] [address] Feb, Generalized anxiety disorder F41.1 and Bereavement Z63.4 [facility] [id number] [place] [address] Jan, Hypertension I10 and Acute non-recurrent maxillary sinusitis J01.00 [place] [id number] [address] December, [facility] [id number] [address] December, Hypertension I10 [facility] [id number] [address] December, Generalized anxiety disorder F41.1 [facility] [address] [id number], [place] [address] Oct, Encounter for dental examination Z01.20 [facility] [id number] [place] [address] Oct, Encounter for dental examination Z01.20 [facility] [id number] [place] [address] Oct, Dental examination Z01.20 [facility] [id number] [place] [address] Oct, Generalized anxiety disorder F41.1 [facility] [id number] [place] [address] Aug, Dental examination Z01.20 [facility] [address], [place] [address] Aug, Generalized anxiety disorder F41.1 [facility] [address], [place] [address] Aug, [facility] [address] [id number], [place] [address] Aug, Encounter for dental examination Z01.20 [facility] [address], [place] [address] Aug, Subacute maxillary sinusitis J01.00 [facility] [address] [id number], [place] [address] Jul, Dental examination Z01.20 [facility] [address], [place] [address] Jul, Generalized anxiety disorder F41.1 [facility] [id number] [place] [address] Jul, Diverticulitis K57.92 [facility] [id number] [place] [address] 28 Jun, 2017 Encounter for immunization Z23 [facility] [id number] [place] [address] 22 Jun, 2017 Dental examination Z01.20 [facility] [id number] [place] [address] 14 Jun, 2017 Generalized anxiety disorder F41.1 [facility] [id number] [place] [address] 07 Jun, 2017 Dental examination Z01.20 [facility] [id number] [place] [address] May, [facility] [id number] [place] [id number] May, Dental examination Z01.20 [facility] [id number] [place] [id number] May, Dental examination Z01.20 [facility] [id number] [place] [address] May, Dental examination Z01.20 [facility] [address] [place] [address] May, [facility] [id number] [place] [address] May, Generalized anxiety disorder F41.1 [facility] [address] [place] [address] 05 May, 2017 Localized edema R60.0 ; Yeast vaginitis B37.3 and Gastroesophageal reflux disease with esophagitis K21.0 [facility] [address] [id number] [id number] Apr, Dental examination Z01.20 [facility] [address] [id number], [place] [address] Apr, Dental examination Z01.20 [facility] [address] [id number], [place] [address] 05 Apr, 2017 Dental examination Z01.20 [facility] [address] [facility] [id number] [place] [address] Mar, Dyspepsia R10.13 [facility] [id number] [place] [address] Mar, Generalized anxiety disorder F41.1 [facility] [id number] [place] [address] Mar, Encounter for dental examination Z01.20 [facility] [id number] [place] [id number] Mar, [facility] [id number] [place] [id number] Mar, Dental examination Z01.20 [facility] [address] [place] [address] Feb, Hypertension I10 and Tachycardia R00.0 [facility] [address] [id number], [place] [address] Feb, [facility] [id number] [place] [address] Feb, Generalized anxiety disorder F41.1 [facility] [id number] [place] [id number] Feb, Dental examination Z01.20 [facility] [id number], [place] [address] Jan, Generalized anxiety disorder F41.1 [facility] [address], [place] [address] December, Generalized anxiety disorder F41.1 [facility] [id number] [place] [id number] December, Encounter for dental examination Z01.20 [facility] [id number] [place] [address] Nov, [facility] [id number] [place] [address] Nov, [facility] [id number] [place] [address] Nov, Generalized anxiety disorder F41.1 [facility] [id number] [place] [address] Oct, [facility] [id number] [place] [address] [id number] Oct, Dental examination Z01.20 [facility] [id number] [place] [address] Oct, Vaginal dryness N89.8 [facility] [id number] [place] [address] Oct, Pseudoseizures F44.5 [facility] [id number] [place] [address] Oct, Generalized anxiety disorder F41.1 [facility] [id number] [place] [address] Sep, Abnormal uterine bleeding (AUB) N93.9 ; Vaginal dryness N89.8 and Screening breast examination Z12.39 [facility] [id number] [place] [address] Sep, Dental examination Z01.20 [facility] [address] [place] [address] Sep, Generalized anxiety disorder F41.1 [facility] [id number] [place] [address] 06 Sep, 2016 Unspecified ovarian cyst, right side N83.201 ; Unspecified ovarian cyst, left side N83.202 ; Yeast infection of the vagina B37.3 ; Mitral valve prolapse I34.1 and Hypertension I10 [facility] [id number] [place] [address] Aug, Generalized anxiety disorder F41.1 [facility] [id number] [place] [address] Jul, [facility] [address] [address] Jul, Generalized anxiety disorder F41.1 [facility] [address] [address] Jun, Generalized anxiety disorder F41.1 [facility] [address] [address] May, Encounter for immunization Z23 [facility] [address] [address] May, Generalized anxiety disorder F41.1 and Depressive disorder, not elsewhere classified F32.9 [facility] [id number] [place] [address] 28 Apr, 2016 Hypertension I10 [facility] [id number] [place] [address] 22 Apr, 2016 Cervicalgia M54.2 [facility] [id number] [place] [address] 12 Apr, 2016 Cervicalgia M54.2 [facility] [id number] [place] [address] Mar, Generalized anxiety disorder F41.1 and Depressive disorder, not elsewhere classified F32.9 [facility] [address] [id number] Feb, Visit for dental examination Z01.20 [facility] [address] [place] [address] 11 Feb, 2016 Pseudoseizures F44.5 ; Migraine without status migrainosus, not intractable, unspecified migraine type G43.909 and Essential hypertension I10 [facility] [address] [id number] 06 Feb, 2016 Dental examination Z01.20 [facility] [id number] [place] [address] 05 Feb, 2016 Generalized anxiety disorder F41.1 and Depressive disorder, not elsewhere classified F32.9 [facility] [id number] [place] [address] Jan, Tachycardia R00.0 [place] [id number] [place] [address] December, Eustachian tube dysfunction, bilateral H69.83 [facility] [id number] [place] [address] December, Generalized anxiety disorder F41.1 and Depressive disorder, not elsewhere classified F32.9 [facility] [id number] [place] [address] 29 Nov, 2015 [place] [id number] [place] [address] 28 Nov, 2015 [facility] [id number] [place] [address] Nov, Hypertension I10 ; Onychomycosis B35.1 ; [...] and Complex cyst of left ovary N83.29 [place] [address] [place] [address] 14 Nov, 2015 Sinusitis J32.9 [facility] [id number] [place] [address] Oct, Complex cyst of left ovary N83.29 [place] [address] [address] Oct, Onychomycosis B35.1 [facility] [id number] [place] [phone] Oct, Dental examination Z01.20 [facility] [id number] [place] [address] 09 Oct, 2015 Well woman exam Z01.419 [...] R92.2 and History of colon polyps Z86.010 [place] [id number] [place] [address] Oct, Generalized anxiety disorder F41.1 and Depressive disorder, not elsewhere classified F32.9 [facility] [id number] [place] [address] Sep, Hypertension I10 and Onychomycosis B35.1 [place] [id number] [place] [address] Sep, Skin tags, multiple acquired L91.8 [place] [id number] [place] [address] Aug, [place] [id number] [place] [address] Aug, [facility] [id number] [place] [address] Aug, [facility] [id number] [place] [address] Aug, Generalized anxiety disorder F41.1 and Depressive disorder, not elsewhere classified F32.9 [facility] [id number] [place] [address] Jul, Skin lesion L98.9 [facility] [id number] [place] [address] Jun, Generalized anxiety disorder F41.1 and Depressive disorder, not elsewhere classified F32.9 [facility] [id number] [place] [address] Jun, [facility] [id number] [place] [address] Jun, Generalized anxiety disorder F41.1 [facility] [id number] [place] [address] May, Encounter for immunization Z23 and Right shoulder pain M25.511 [facility] [id number] [place] [address] Apr, [facility] [id number] [place] [address] 14 Apr, 2015 Generalized anxiety disorder 300.02 and Depressive disorder, not elsewhere classified 311 [facility] [id number] [place] [address] [id number] Mar, Dental examination V72.2 [facility] [id number] [place] [address] Mar, Generalized anxiety disorder 300.02 and Depressive disorder, not elsewhere classified 311 [facility] [id number] [place] [address] Mar, Depression, major, recurrent, 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.35 and 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 [facility] [address] [place] [address] Feb, Generalized anxiety disorder 300.02 and Depressive disorder, not elsewhere classified 311 [facility] [address] [id number] Feb, Dental examination V72.2 [facility] [id number] [place] [address] Jan, Generalized anxiety disorder 300.02 and Depressive disorder, not elsewhere classified 311 [facility] [id number] [place] [address] Jan, [facility] [id number] [place] [address] December, Generalized anxiety disorder 300.02 and Depressive disorder, not elsewhere classified 311 [facility] [id number] [place] [address] December, Major depressive disorder, recurrent, unspecified 296.30 and Panic disorder with agoraphobia 300.21 [facility] [address] [place] [address] Nov, [facility] [address], [place] [address] Nov, [facility] [id number] [place] [address] Oct, [facility] [address] [place] [address] Oct, [facility] [id number] [place] [address] Oct, [facility] [address], [place] [address] Oct, [facility] [id number] [place] [address] Sep, 2014 [facility] [place] [facility] [address] [id number] [place] [address] Sep, 2014 [facility] [place] [facility] [address] [id number] [place] [address] Sep, 2014 [facility] [place] [facility] [address] [id number] [place] [address] Sep, 2014 [facility] [place] [facility] [address] [id number] [place] [address] Sep, 2014 [facility] [place] [facility] [address] [id number] [place] [address] Sep, 2014 [facility] [place] [facility] [address] [facility] [id number] [place] [address] Sep, 2014 [facility] [place] [facility] [address] [facility] [id number] [place] [address] Sep, 2014 [facility] [place] [facility] [address] [facility] [id number] [place] [address] Sep, 2014 [facility] [place] [facility] [address] [facility] [id number] [place] [address] Sep, 2014 [facility] [place] [facility] [address] [facility] [id number] [place] [address] Aug, [facility] [place] [facility] [address] [facility] [id number] [place] [address] Aug, [facility] [place] [facility] [address] [id number] [place] [address] Jul, [facility] [place] [facility] [address] [id number] [place] [address] Jul, [facility] [place] [facility] [address] [facility] [id number] [place] [address] Jul, [facility] [place] [facility] [address] [facility] [id number] [place] [address] Jul, [facility] [place] [facility] [address] [id number] [place] [address] Jul, [facility] [place] [facility] [address] [id number] [place] [address] Jul, [facility] [place] [facility] [address] [id number] [place] [address] Jul, [facility] [place] [facility] [address] [id number] [place] [address] Jul, [facility] [place] [facility] [address] [id number] [place] [address] Jul, [facility] [place] [facility] [address] [id number] [place] [address] Jul, [facility] [place] [facility] [address] [id number] [place] [address] Jul, [facility] [place] [facility] [address] [id number] [place] [address] Jul, [facility] [place] [facility] [address] [id number] [place] [address] Jun, [facility] [place] [facility] [address] [id number] [place] [address] Jun, [facility] [place] [facility] [address] [id number] [place] [address] May, [facility] [place] [facility] [address] [id number] [place] [address] May, [facility] [place] [facility] [address] [id number] [place] [address] May, [facility] [place] [facility] [address] [id number] [place] [address] May, [facility] [place] [facility] [address] [id number] [place] [address] May, [facility] [place] [facility] [address] [id number] [place] [address] May, 2013 [facility] [place] [facility] [address] [id number] [place] [address] May, 2013 [facility] [place] [facility] [address] [id number] [place] [address] May, 2013 [facility] [place] [facility] [address] [id number] [place] [address] May, [facility] [place] [facility] [address] [id number] [place] [address] May, [facility] [place] [facility] [address] [id number] [place] [address] May, [facility] [place] [facility] [address] [id number] [place] [address] May, [facility] [place] [facility] [address] [id number] [place] [address] 30 Apr, 2013 [facility] [place] [facility] [address] [id number] [place] [address] 30 Apr, 2013 [facility] [place] [facility] [address] [id number] [place] [address] 29 Apr, 2013 [facility] [place] [facility] [address] [id number] [place] [address] 29 Apr, 2013 [facility] [place] [facility] [address] [id number] [place] [address] Apr, 2013 [facility] [place] [facility] [address] [id number] [place] [address] Apr, 2013 [facility] [place] [facility] [address] [id number] [place] [address] Feb, [facility] [place] [facility] [address] [id number] [place] [address] Feb, [facility] [place] [facility] [address] [id number] [place] [address] Feb, [facility] [place] [facility] [address] [id number] [place] [address] Feb, [facility] [place] [facility] [address] [id number] [place] [address] Feb, [facility] [place] [facility] [address] [id number] [place] [address] Feb, [facility] [place] [facility] [address] [id number] [place] [address] Jan, [facility] [place] [facility] [address] [id number] [place] [address] Jan, [facility] [place] [facility] [address] [id number] [place] [address] Jan, [facility] [place] [facility] [address] [id number] [place] [address] Jan, [facility] [place] [facility] [address] [id number] [place] [address] Jan, [facility] [place] [facility] [address] [id number] [place] [address] Jan, [facility] [place] [facility] [address] [id number] [place] [address] Jan, [facility] [place] [facility] [address] [id number] [place] [address] Jan, [facility] [place] [facility] [address] [id number] [place] [address] December, [facility] [place] [facility] [address] [id number] [place] [address] December, [facility] [place] [facility] [address] [id number] [place] [address] December, [facility] [place] [facility] [address] [id number] [place] [address] December, [facility] [place] [facility] [address] [id number] [place] [address] Nov, [facility] [place] [facility] [address] [id number] [place] [address] Nov, [facility] [place] [facility] [address] [id number] [place] [address] Nov, [facility] [place] [facility] [address] [id number] [place] [address] Nov, [facility] [place] [facility] [address] [id number] [place] [address] Nov, [facility] [place] [facility] [address] [id number] [place] [address] Nov, [facility] [place] [facility] [address] [id number] [place] [address] Nov, [facility] [place] [facility] [address] [id number] [place] [address] Nov, [facility] [place] [facility] [address] [id number] [place] [address] Oct, [facility] [place] [facility] [address] [id number] [place] [address] Oct, [facility] [place] [facility] [address] [id number] [place] [address] Sep, [facility] [place] [facility] [address] [id number] [place] [address] Sep, [facility] [place] [facility] [address] [id number] [id number] Sep, [facility] [place] [facility] [address] [id number] [place] [address] Sep, [facility] [place] [facility] [address] [id number] [place] [address] Sep, [facility] [place] [facility] [address] [id number] [place] [address] Sep, [facility] [place] [facility] [address] [id number] [place] [address] 15 Aug, 2013 [facility] [address] [id number] [place] [address] Aug, [facility] [place] [facility] [address] [id number] [place] [address] Aug, [facility] [address] [id number] [place] [address] Aug, [facility] [place] [facility] [address] [id number] [place] [address] Jul, [facility] [address] [id number] [place] [address] Jul, [facility] [address] [id number] [place] [address] Jul, [facility] [address] [id number] [place] [address] Jul, [facility] [address] [id number] [place] [address] Jun, [facility] [address] [id number] [place] [address] Jun, [facility] [address] [id number] [place] [address] May, [facility] [place] [facility] [address] [id number] [place] [address] 24 May, 2013 [facility] [place] [facility] [address] [id number] [place] [address] May, [facility] [place] [facility] [address] [id number] [place] [address] 11 May, 2013 [facility] [place] [facility] [address] [id number] [place] [address] 10 May, 2013 [facility] [place] [facility] [address] [id number] [place] [address] Apr, [facility] [place] [facility] [address] [id number] [place] [address] Apr, [facility] [place] [facility] [address] [id number] [place] [address] Mar, [facility] [place] [facility] [address] [id number] [place] [address] Mar, [facility] [place] [facility] [address] [id number] [place] [address] Mar, [facility] [place] [facility] [address] [id number] [place] [address] Mar, [facility] [place] [facility] [address] [id number] [place] [address] Feb, [facility] [place] [facility] [address] [id number] [place] [address] Feb, [facility] [place] [facility] [address] [id number] [place] [address] Feb, [facility] [place] [facility] [address] [id number] [place] [address] Feb, [facility] [place] [facility] [address] [id number] [place] [address] Feb, [facility] [place] [facility] [address] [id number] [place] [address] Jan, [facility] [place] [facility] [address] [id number] [place] [address] Jan, [facility] [place] [facility] [address] [id number] [place] [address] Jan, [facility] [place] [facility] [address] [id number] [place] [address] Jan, [facility] [place] [facility] [address] [id number] [place] [address] Jan, [facility] [place] [facility] [address] [id number] [place] [address] December, [facility] [address] [id number] [place] [address] December, [facility] [address] [id number] [place] [address] Nov, [facility] [address] [id number] [place] [address] Nov, [facility] [address] [id number] [place] [address] Oct, [facility] [address] [id number] [place] [address] Oct, [facility] [address] [id number] [place] [address] Oct, [facility] [address] [id number] [place] [address] 14 Sep, 2012 [facility] [address] [id number] [place] [address] Aug, [facility] [address] [id number] [place] [address] Aug, [facility] [address] [id number] [place] [address] Aug, [facility] [address] [id number] [place] [address] Aug, [facility] [address] [id number] [place] [address] Jul, [facility] [address] [id number] [place] [address] Jul, [facility] [address] [id number] [place] [address] Jul, [facility] [address] [id number] [place] [address] Jul, [facility] [place] [facility] [address] [id number] [place] [address] Jul, [facility] [place] [facility] [address] [id number] [place] [address] Jul, [facility] [place] [facility] [address] [id number] [place] [address] Jul, [facility] [place] [facility] [address] [id number] [place] [address] Jul, [facility] [place] [facility] [address] [id number] [place] [address] Jun, [facility] [place] [facility] [address] [id number] [place] [address] Jun, [facility] [place] [facility] [address] [id number] [place] [address] Jun, [facility] [place] [facility] [address] [id number] [place] [address] Jun, [facility] [place] [facility] [address] [id number] [place] [address] Jun, [facility] [place] [facility] [address] [id number] [place] [address] Jun, [facility] [place] [facility] [address] [facility] [id number] [place] [address] May, [facility] [place] [facility] [address] [id number] [place] [address] May, [facility] [place] [facility] [address] [id number] [place] [address] May, [facility] [place] [facility] [address] [id number] [place] [address] May, [facility] [place] [facility] [address] [id number] [place] [address] Apr, [facility] [place] [facility] [address] [id number] [place] [address] 06 Apr, 2012 [facility] [place] [facility] [address] [id number] [place] [address] 08 Mar, 2012 [facility] [place] [facility] [address] [id number] [place] [address] 28 Jan, 2012 [facility] [place] [facility] [address] [id number] [place] [address] 20 Jan, 2012 [facility] [place] [facility] [address] [id number] [place] [address] 16 Jan, 2012 [facility] [place] [facility] [address] [id number] [place] [address] 15 Jan, 2012 [facility] [place] [facility] [address] [id number] [place] [address] 14 Jan, 2012 [facility] [place] [facility] [address] [id number] [place] [address] Jan, [facility] [place] [facility] [address] [id number] [place] [address] Jan, [facility] [place] [facility] [address] [id number] [place] [address] December, [facility] [place] [facility] [address] [id number] [place] [address] December, [facility] [place] [facility] [address] [id number] [place] [address] December, [facility] [place] [facility] [address] [id number] [place] [address] December, [facility] [place] [facility] [address] [id number] [place] [address] Nov, [facility] [place] [facility] [address] [id number] [place] [address] Nov, [facility] [place] [facility] [address] [id number] [place] [address] Oct, [facility] [place] [facility] [address] [id number] [place] [address] 28 Oct, 2011 [facility] [address] [id number] [place] [address] Oct, [facility] [address] [id number] [place] [address] Sep, [facility] [address] [id number] [place] [address] Sep, [facility] [address] [id number] [place] [address] Sep, [facility] [address] [id number] [place] [address] Aug, [facility] [address] [id number] [place] [address] Aug, [facility] [address] [id number] [place] [address] Aug, [facility] [address] [id number] [place] [address] Aug, [facility] [address] [id number] [place] [address] Aug, [facility] [address] [id number] [place] [address] Aug, [facility] [address] [id number] [place] [address] Aug, [facility] [address] [id number] [place] [address] Jul, [facility] [place] [facility] [address] [id number] [place] [address] Jul, [facility] [address] [id number] [place] [address] Jun, [facility] [address] [id number] [place] [address] Jun, [facility] [place] [facility] [address] [id number] [place] [address] 17 Jun, 2011 [facility] [place] [facility] [address] [id number] [place] [address] 15 Jun, 2011 [facility] [place] [facility] [address] [id number] [place] [address] 14 Jun, 2011 [facility] [place] [facility] [address] [id number] [place] [address] 14 Jun, 2011 [facility] [place] [facility] [address] [id number] [place] [address] Jun, [facility] [place] [facility] [address] [id number] [place] [address] Jun, [facility] [place] [facility] [address] [id number] [place] [address] Jun, [facility] [place] [facility] [address] [id number] [place] [address] Jun, [facility] [place] [facility] [address] [id number] [place] [address] May, [facility] [place] [facility] [address] [id number] [place] [address] May, [facility] [place] [facility] [address] [id number] [place] [address] May, [facility] [place] [facility] [address] [id number], [place] [address] 24 May, 2011 [facility] [place] [facility] [address] [id number] [place] [address] 18 May, 2011 [facility] [place] [facility] [address] [id number] [place] [address] May, [facility] [place] [facility] [address] [id number] [place] [address] Feb, [facility] [place] [facility] [address] [id number], [place] [address] December, [facility] [id number], [place] [address] Jul, [facility] [id number], [place] [address] Jul, [facility] [id number], [place] [address] Jul, [facility] [id number] [place] [address] Jul, [facility] [id number] [place] [address] Jun, [facility] [id number] [place] [address] Jul, [facility] [id number] [place] [address] Jul, [facility] [address], [place] [address] Jul, [facility] [address], [place] [address] Jul, [facility] [address], [place] [address] Jul, [facility] [address], [place] [address] Jul, [facility] [address], [place] [address] Jan, [facility] [address], [place] [address] 16 Sep, 2008 [facility] [address], [place] [address] 11 Sep, 2008 IMMUNIZATIONS No Known Immunizations SOCIAL HISTORY Never Assessed REASON FOR VISIT Refill request PLAN OF CARE VITAL SIGNS MEDICATIONS Medication Instructions Dosage Frequency Start Date End Date Duration Status Inderal [place] 80 MG Orally Once a day. Take along with the 120 mg Capsule 1 capsule December, 90 days Active RESULTS No Results PROCEDURES [...]
--- OUTSIDE RECORDS SUMMARY | 2019-01-22 20:51 | XMS REPORT ---
Author Author KVNG MERCHANT [facility] Address [address] [place] [address] Care Team Providers Care Launch Manager Name Role Phone KVNG MERCHANT Unavailable PROBLEMS Type Condition ICD9-CM Code UCU31-HM Code Onset Dates Condition Status SNOMED Code Problem Family history of diabetes mellitus Z83.3 Active 628744039 Problem Hot flashes N95.1 Active 944444563 Problem Excessive and frequent menstruation with irregular cycle N92.1 Active 237549933 Problem Diverticulitis K57.92 Active 267371233 Problem Gastroesophageal reflux disease with esophagitis K21.0 Active 839501903 Problem Mitral valve prolapse I34.1 Active 647128653 Problem Perimenopausal N95.1 Active 841521037586674 Problem Tachycardia R00.0 Active 6002755 Problem Abnormal uterine bleeding (AUB) N93.9 Active 94617857928565 Problem History of diverticulitis Z87.19 Active 233017065676193 Problem History of colon polyps Z86.010 Active 548392823 Problem Generalized anxiety disorder F41.1 Active 247064357 Problem Dense breast tissue R92.2 Active 200164323 Problem Hypertension I10 Active 70045027 Problem History of ovarian cyst Z87.42 Active 72101802 ALLERGIES No Information ENCOUNTERS Encounter Location Date Diagnosis [facility] [address] [facility] [id number], [place] [address] May, [facility] [address] [id number], [place] [address] May, [facility] [address], [place] [address] 24 Apr, 2018 [facility] [address] [id number], [place] [address] 13 Apr, 2018 Diverticulitis K57.92 [facility] [id number] [place] [address] Apr, Generalized anxiety disorder F41.1 and Bereavement Z63.4 [facility] [id number] [place] [address] Mar, [facility] [id number] [place] [address] Mar, Diverticulitis K57.92 [facility] [id number] [place] [address] Mar, Generalized anxiety disorder F41.1 and Bereavement Z63.4 [place] [id number] [place] [address] Mar, Hypertension I10 [place] [id number] [place] [address] Mar, Generalized anxiety disorder F41.1 and Bereavement Z63.4 [facility] [id number] [place] [address] Feb, Generalized anxiety disorder F41.1 and Bereavement Z63.4 [place] [id number] [place] [address] Feb, [place] [id number] [place] [address] Feb, Generalized anxiety disorder F41.1 and Bereavement Z63.4 [facility] [id number] [place] [address] Feb, Generalized anxiety disorder F41.1 and Bereavement Z63.4 [place] [id number] [place] [address] Jan, Hypertension I10 and Acute non-recurrent maxillary sinusitis J01.00 [facility] [id number] [place] [address] December, [facility] [address], [place] [address] December, Hypertension I10 [facility] [id number] [place] [address] December, Generalized anxiety disorder F41.1 [facility] [address] [id number], [place] [address] 16 Oct, 2017 Encounter for dental examination Z01.20 [facility] [id number] [place] [address] 06 Oct, 2017 Encounter for dental examination Z01.20 [facility] [id number] [place] [address] 02 Oct, 2017 Dental examination Z01.20 [facility] [id number] [place] [address] Oct, Generalized anxiety disorder F41.1 [facility] [id number] [place] [address] Aug, Dental examination Z01.20 [facility] [id number] [place] [address] Aug, Generalized anxiety disorder F41.1 [facility] [id number] [place] [address] Aug, [facility] [id number], [place] [address] Aug, Encounter for dental examination Z01.20 [facility] [address] [id number], [place] [address] Aug, Subacute maxillary sinusitis J01.00 [facility] [address] [id number], [place] [address] Jul, Dental examination Z01.20 [facility] [address] [id number], [place] [address] Jul, Generalized anxiety disorder F41.1 [facility] [address], [place] [address] Jul, Diverticulitis K57.92 [facility] [id number] [place] [address] Jun, Encounter for immunization Z23 [facility] [address] [id number], [place] [address] 22 Jun, 2017 Dental examination Z01.20 [facility] [id number] [place] [address] 14 Jun, 2017 Generalized anxiety disorder F41.1 [facility] [id number] [place] [address] Jun, Dental examination Z01.20 [facility] [id number] [place] [address] May, [facility] [id number] [place] [id number] May, Dental examination Z01.20 [facility] [address] [id number] [place] [id number] May, Dental examination Z01.20 [facility] [id number] [place] [address] May, Dental examination Z01.20 [facility] [id number] [place] [address] May, [facility] [id number] [place] [address] May, Generalized anxiety disorder F41.1 [facility] [id number] [place] [address] May, Localized edema R60.0 ; Yeast vaginitis B37.3 and Gastroesophageal reflux disease with esophagitis K21.0 [facility] [address] [id number] [place] [id number] Apr, Dental examination Z01.20 [facility] [address] [id number], [place] [address] Apr, Dental examination Z01.20 [facility] [address] [id number], [place] [address] 05 Apr, 2017 Dental examination Z01.20 [facility] [address] [id number], [place] [address] Mar, Dyspepsia R10.13 [facility] [id number] [place] [address] Mar, Generalized anxiety disorder F41.1 [facility] [address] [id number], [place] [address] Mar, Encounter for dental examination Z01.20 [facility] [id number] [place] [id number] Mar, [facility] [address] [id number] [place] [address] [id number] Mar, Dental examination Z01.20 [facility] [id number] [place] [address] Feb, Hypertension I10 and Tachycardia R00.0 [facility] [address] [id number], [place] [address] Feb, [facility] [address] [id number], [place] [address] Feb, Generalized anxiety disorder F41.1 [facility] [address] [id number] [id number] Feb, Dental examination Z01.20 [facility] [id number] [place] [address] Jan, Generalized anxiety disorder F41.1 [facility] [address] [id number], [place] [address] December, Generalized anxiety disorder F41.1 [facility] [address] [id number] December, Encounter for dental examination Z01.20 [facility] [id number] [place] [address] Nov, [facility] [id number] [place] [address] Nov, [facility] [id number] [place] [address] Nov, Generalized anxiety disorder F41.1 [facility] [id number] [place] [address] Oct, [facility] [id number] [place] [address] [id number] Oct, Dental examination Z01.20 [facility] [id number] [place] [address] Oct, Vaginal dryness N89.8 [facility] [id number] [place] [address] Oct, Pseudoseizures F44.5 [facility] [id number] [place] [address] Oct, Generalized anxiety disorder F41.1 [facility] [id number] [place] [address] Sep, Abnormal uterine bleeding (AUB) N93.9 ; Vaginal dryness N89.8 and Screening breast examination Z12.39 [facility] [id number] [place] [address] Sep, Dental examination Z01.20 [facility] [id number] [place] [address] Sep, Generalized anxiety disorder F41.1 [facility] [id number] [place] [address] 06 Sep, 2016 Unspecified ovarian cyst, right side N83.201 ; Unspecified ovarian cyst, left side N83.202 ; Yeast infection of the vagina B37.3 ; Mitral valve prolapse I34.1 and Hypertension I10 [facility] [id number] [place] [address] 18 Aug, 2016 Generalized anxiety disorder F41.1 [facility] [address] [address] 28 Jul, 2016 [facility] [address] [address] Jul, Generalized anxiety disorder F41.1 [facility] [address] [address] Jun, Generalized anxiety disorder F41.1 [facility] [address] [address] 28 May, 2016 Encounter for immunization Z23 [facility] [address] [address] 17 May, 2016 Generalized anxiety disorder F41.1 and Depressive disorder, not elsewhere classified F32.9 [facility] [address] [address] 28 Apr, 2016 Hypertension I10 [facility] [address] [address] 22 Apr, 2016 Cervicalgia M54.2 [facility] [id number] [place] [address] Apr, Cervicalgia M54.2 [facility] [address] [address] 09 Mar, 2016 Generalized anxiety disorder F41.1 and Depressive disorder, not elsewhere classified F32.9 [facility] [id number] [place] [address] [id number] 14 Feb, 2016 Visit for dental examination Z01.20 [facility] [address] [address] 11 Feb, 2016 Pseudoseizures F44.5 ; Migraine without status migrainosus, not intractable, unspecified migraine type G43.909 and Essential hypertension I10 [facility] [address] [place] [address] [id number] 06 Feb, 2016 Dental examination Z01.20 [facility] [id number] [place] [address] 05 Feb, 2016 Generalized anxiety disorder F41.1 and Depressive disorder, not elsewhere classified F32.9 [place] [id number] [place] [address] Jan, Tachycardia R00.0 [place] [id number] [place] [address] December, Eustachian tube dysfunction, bilateral H69.83 [place] [id number] [place] [address] December, Generalized anxiety disorder F41.1 and Depressive disorder, not elsewhere classified F32.9 [place] [id number] [place] [address] Nov, [place] [id number] [place] [address] 28 Nov, 2015 [place] [id number] [place] [address] 20 Nov, 2015 Hypertension I10 ; Onychomycosis [...] and Complex cyst of left ovary N83.29 [facility] [id number] [place] [address] Nov, Sinusitis J32.9 [place] [id number] [place] [address] Oct, Complex cyst of left ovary N83.29 [place] [address] [address] Oct, Onychomycosis B35.1 [facility] [address] [id number] 17 Oct, 2015 Dental examination Z01.20 [place] [address] [address] 09 Oct, 2015 Well woman exam Z01.419 [...] R92.2 and History of colon polyps Z86.010 [place] [address] [address] Oct, Generalized anxiety disorder F41.1 and Depressive disorder, not elsewhere classified F32.[address] [address] Sep, Hypertension I10 and Onychomycosis B35.1 [place] [address] [address] Sep, Skin tags, multiple acquired L91.8 [place] [address] [address] Aug, [place] [address] [address] Aug, [place] [address] [place] [address] Aug, [facility] [id number] [place] [address] Aug, Generalized anxiety disorder F41.1 and Depressive disorder, not elsewhere classified F32.9 [facility] [id number] [place] [address] Jul, Skin lesion L98.9 [facility] [id number] [place] [address] Jun, Generalized anxiety disorder F41.1 and Depressive disorder, not elsewhere classified F32.9 [place] [address] [address] Jun, [place] [id number] [place] [address] Jun, Generalized anxiety disorder F41.1 [place] [address] [address] May, Encounter for immunization Z23 and Right shoulder pain M25.511 [place] [id number] [place] [address] Apr, [facility] [id number] [place] [address] 14 Apr, 2015 Generalized anxiety disorder 300.02 and Depressive disorder, not elsewhere classified 311 [facility] [address] [place] [address] [id number] Mar, Dental examination V72.2 [facility] [id number] [place] [address] Mar, Generalized anxiety disorder 300.02 and Depressive disorder, not elsewhere classified 311 [facility] [id number] [place] [address] Mar, Depression, major, recurrent, 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.35 and 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 [facility] [address], [place] [address] Feb, Generalized anxiety disorder 300.02 and Depressive disorder, not elsewhere classified 311 [facility] [address] [address] Feb, Dental examination V72.2 [facility] [address], [place] [address] Jan, Generalized anxiety disorder 300.02 and Depressive disorder, not elsewhere classified 311 [facility] [address], [place] [address] Jan, [facility] [id number] [place] [address] December, Generalized anxiety disorder 300.02 and Depressive disorder, not elsewhere classified 311 [facility] [address], [place] [address] December, Major depressive disorder, recurrent, unspecified 296.30 and Panic disorder with agoraphobia 300.21 [facility] [address], [place] [address] Nov, [facility] [id number] [place] [address] Nov, [facility] [address], [place] [address] Oct, [facility] [address], [place] [address] Oct, [facility] [address], [place] [address] Oct, [facility] [id number] [place] [address] Oct, [facility] [address], [place] [address] Sep, [facility] [id number] [place] [address] Sep, 2014 [facility] [place] [facility] [address] [id number] [place] [address] Sep, 2014 [facility] [place] [facility] [address] [id number] [place] [address] Sep, 2014 [facility] [place] [facility] [address] [id number] [place] [address] Sep, 2014 [facility] [place] [facility] [address] [id number] [place] [address] Sep, 2014 [facility] [place] [facility] [address] [id number] [place] [address] Sep, 2014 [facility] [place] [facility] [address] [id number] [place] [address] Sep, 2014 [facility] [place] [facility] [address] [facility] [id number] [place] [address] Sep, 2014 [facility] [place] [facility] [address] [facility] [id number] [place] [address] Sep, [facility] [place] [facility] [address] [facility] [id number] [place] [address] Aug, [facility] [place] [facility] [address] [facility] [id number] [place] [address] Aug, [facility] [place] [facility] [address] [facility] [id number] [place] [address] Jul, [facility] [place] [facility] [address] [id number], [place] [address] Jul, [facility] [place] [facility] [address] [id number] [place] [address] Jul, [facility] [place] [facility] [address] [facility] [id number] [place] [address] Jul, [facility] [place] [facility] [address] [facility] [id number], [place] [address] Jul, [facility] [place] [facility] [address] [id number] [place] [address] Jul, [facility] [place] [facility] [address] [id number] [place] [address] Jul, [facility] [place] [facility] [address] [id number] [place] [address] Jul, [facility] [place] [facility] [address] [id number] [place] [address] Jul, [facility] [place] [facility] [address] [id number] [place] [address] Jul, [facility] [place] [facility] [address] [id number] [place] [address] Jul, [facility] [place] [facility] [address] [id number] [place] [address] Jul, [facility] [place] [facility] [address] [id number] [place] [address] Jun, [facility] [place] [facility] [address] [id number] [place] [address] Jun, [facility] [place] [facility] [address] [id number] [place] [address] May, [facility] [place] [facility] [address] [id number] [place] [address] May, [facility] [place] [facility] [address] [id number] [place] [address] May, [facility] [place] [facility] [address] [id number] [place] [address] May, [facility] [place] [facility] [address] [id number] [place] [address] May, [facility] [place] [facility] [address] [id number] [place] [address] May, [facility] [place] [facility] [address] [id number], [place] [address] May, [facility] [place] [facility] [address] [id number] [place] [address] May, [facility] [place] [facility] [address] [id number] [place] [address] May, [facility] [place] [facility] [address] [id number] [place] [address] May, [facility] [place] [facility] [address] [id number] [place] [address] May, [facility] [place] [facility] [address] [id number] [place] [address] May, [facility] [place] [facility] [address] [id number] [place] [address] Apr, [facility] [place] [facility] [address] [id number] [place] [address] Apr, [facility] [place] [facility] [address] [id number] [place] [address] Apr, [facility] [place] [facility] [address] [id number] [place] [address] Apr, [facility] [place] [facility] [address] [id number] [place] [address] Apr, [facility] [place] [facility] [address] [id number] [place] [address] Apr, [facility] [place] [facility] [address] [id number] [address] Feb, [facility] [place] [facility] [address] [id number] [place] [address] Feb, [facility] [place] [facility] [address] [id number] [place] [address] Feb, [facility] [place] [facility] [address] [id number] [place] [address] Feb, [facility] [place] [facility] [address] [id number] [place] [address] Feb, [facility] [place] [facility] [address] [id number] [place] [address] Feb, [facility] [place] [facility] [address] [id number] [place] [address] Jan, [facility] [place] [facility] [address] [id number] [place] [address] Jan, [facility] [place] [facility] [address] [id number] [place] [address] Jan, [facility] [place] [facility] [address] [id number] [place] [address] Jan, [facility] [place] [facility] [address] [id number] [place] [address] Jan, [facility] [place] [facility] [address] [id number] [place] [address] Jan, [facility] [place] [facility] [address] [id number] [place] [address] Jan, [facility] [place] [facility] [address] [id number] [place] [address] Jan, [facility] [place] [facility] [address] [id number] [place] [address] December, [facility] [place] [facility] [address] [id number] [place] [address] December, [facility] [place] [facility] [address] [id number] [place] [address] December, [facility] [place] [facility] [address] [id number] [place] [address] December, [facility] [place] [facility] [address] [id number] [place] [address] Nov, [facility] [place] [facility] [address] [id number] [place] [address] Nov, [facility] [place] [facility] [address] [id number] [place] [address] Nov, [facility] [place] [facility] [address] [id number] [place] [address] Nov, [facility] [place] [facility] [address] [id number] [place] [address] Nov, [facility] [place] [facility] [address] [id number] [place] [address] Nov, [facility] [place] [facility] [address] [id number] [place] [address] Nov, [facility] [place] [facility] [address] [id number] [place] [address] Nov, [facility] [place] [facility] [address] [id number] [place] [address] Oct, [facility] [place] [facility] [address] [id number] [place] [address] Oct, [facility] [place] [facility] [address] [id number] [place] [address] Sep, [facility] [place] [facility] [address] [id number] [place] [address] Sep, [facility] [place] [facility] [address] [id number] [place] [id number] Sep, [facility] [place] [facility] [address] [id number], [place] [address] Sep, [facility] [place] [facility] [address] [id number] [place] [address] Sep, [facility] [place] [facility] [address] [id number] [place] [address] Sep, [facility] [place] [facility] [address] [id number] [place] [address] Aug, [facility] [place] [facility] [address] [id number] [place] [address] 15 Aug, 2013 [facility] [address] [id number] [place] [address] Aug, [facility] [place] [facility] [address] [id number] [place] [address] Aug, [facility] [place] [facility] [address] [id number] [place] [address] Jul, [facility] [place] [facility] [address] [id number] [place] [address] Jul, [facility] [place] [facility] [address] [id number] [place] [address] Jul, [facility] [place] [facility] [address] [id number] [place] [address] Jul, [facility] [place] [facility] [address] [id number] [place] [address] Jun, [facility] [place] [facility] [address] [id number] [place] [address] Jun, [facility] [place] [facility] [address] [id number] [place] [address] 24 May, 2013 [facility] [place] [facility] [address] [id number] [place] [address] 24 May, 2013 [facility] [place] [facility] [address] [id number] [place] [address] 11 May, 2013 [facility] [place] [facility] [address] [id number] [place] [address] 11 May, 2013 [facility] [place] [facility] [address] [id number] [place] [address] 10 May, 2013 [facility] [place] [facility] [address] [id number] [place] [address] 17 Apr, 2013 [facility] [place] [facility] [address] [id number], [place] [address] 10 Apr, 2013 [facility] [place] [facility] [address] [id number] [place] [address] Mar, [facility] [place] [facility] [address] [id number] [place] [address] Mar, [facility] [place] [facility] [address] [id number] [place] [address] Mar, [facility] [place] [facility] [address] [id number] [place] [address] Mar, [facility] [place] [facility] [address] [id number] [place] [address] Feb, [facility] [place] [facility] [address] [id number] [place] [address] Feb, [facility] [place] [facility] [address] [id number] [place] [address] Feb, [facility] [place] [facility] [address] [id number] [place] [address] Feb, [facility] [place] [facility] [address] [id number] [place] [address] Feb, [facility] [place] [facility] [address] [id number] [place] [address] Jan, [facility] [place] [facility] [address] [id number] [place] [address] Jan, [facility] [place] [facility] [address] [id number] [place] [address] Jan, [facility] [place] [facility] [address] [id number] [place] [address] Jan, [facility] [place] [facility] [address] [id number] [place] [address] Jan, [facility] [place] [facility] [address] [id number] [place] [address] December, [facility] [place] [facility] [address] [id number] [place] [address] December, [facility] [address] [id number] [place] [address] Nov, [facility] [address] [id number] [place] [address] Nov, [facility] [address] [id number] [place] [address] Oct, [facility] [address] [id number] [place] [address] Oct, [facility] [address] [id number] [place] [address] Oct, [facility] [address] [id number] [place] [address] 14 Sep, 2012 [facility] [address] [id number] [place] [address] 24 Aug, 2012 [facility] [address] [id number] [place] [address] Aug, [facility] [address] [id number] [place] [address] Aug, [facility] [address] [id number] [place] [address] Aug, [facility] [address] [id number], [place] [address] Jul, [facility] [address] [id number] [place] [address] Jul[facility] [place] [facility] [address] [id number] [place] [address] Jul, [facility] [place] [facility] [address] [id number] [place] [address] Jul, [facility] [place] [facility] [address] [id number] [place] [address] Jul, [facility] [address] [id number] [place] [address] Jul, [facility] [place] [facility] [address] [id number] [place] [address] Jul, [facility] [place] [facility] [address] [id number] [place] [address] Jul, [facility] [address] [id number] [place] [address] Jun, [facility] [place] [facility] [address] [id number] [place] [address] Jun, [facility] [place] [facility] [address] [id number] [place] [address] Jun, [facility] [place] [facility] [address] [facility] [id number] [place] [address] Jun, [facility] [place] [facility] [address] [facility] [id number] [place] [address] Jun, [facility] [place] [facility] [address] [id number] [place] [address] Jun, [facility] [place] [facility] [address] [facility] [id number] [place] [address] May, [facility] [place] [facility] [address] [facility] [id number] [place] [address] May, [facility] [place] [facility] [address] [id number] [place] [address] May, [facility] [place] [facility] [address] [id number] [place] [address] May, [facility] [place] [facility] [address] [id number] [place] [address] Apr, [facility] [place] [facility] [address] [id number] [place] [address] Apr, [facility] [place] [facility] [address] [facility] [id number] [place] [address] Mar, [facility] [place] [facility] [address] [id number] [place] [address] 28 Jan, 2012 [facility] [place] [facility] [address] [id number] [place] [address] 20 Jan, 2012 [facility] [place] [facility] [address] [id number] [place] [address] 16 Jan, 2012 [facility] [place] [facility] [address] [id number] [place] [address] 15 Jan, 2012 [facility] [place] [facility] [address] [id number] [place] [address] Jan, [facility] [place] [facility] [address] [id number] [place] [address] 14 Jan, 2012 [facility] [place] [facility] [address] [id number] [place] [address] Jan, [facility] [place] [facility] [address] [id number] [place] [address] December, [facility] [place] [facility] [address] [id number] [place] [address] December, [facility] [place] [facility] [address] [id number] [place] [address] December, [facility] [place] [facility] [address] [id number] [place] [address] December, [facility] [place] [facility] [address] [id number] [place] [address] Nov, [facility] [place] [facility] [address] [id number] [place] [address] Nov, [facility] [place] [facility] [address] [id number] [place] [address] Oct, [facility] [place] [facility] [address] [id number] [place] [address] Oct, [facility] [place] [facility] [address] [id number] [place] [address] Oct, [facility] [address] [id number] [place] [address] Sep, [facility] [place] [facility] [address] [id number] [place] [address] Sep, [facility] [address] [id number] [place] [address] Sep, [facility] [place] [facility] [address] [id number] [place] [address] Aug, [facility] [address] [id number] [place] [address] Aug, [facility] [place] [facility] [address] [id number] [place] [address] Aug, [facility] [address] [id number] [place] [address] Aug, [facility] [address] [id number] [place] [address] Aug, [facility] [address] [id number] [place] [address] Aug, [facility] [address] [id number] [place] [address] Aug, [facility] [address] [id number] [place] [address] Jul, [facility] [place] [facility] [address] [id number] [place] [address] Jul, [facility] [place] [facility] [address] [id number] [place] [address] Jun, [facility] [place] [facility] [address] [id number] [place] [address] Jun, [facility] [address] [id number] [place] [address] Jun, [facility] [place] [facility] [address] [id number] [place] [address] 15 Jun, 2011 [facility] [place] [facility] [address] [id number] [place] [address] 14 Jun, 2011 [facility] [place] [facility] [address] [id number] [place] [address] Jun, [facility] [place] [facility] [address] [id number] [place] [address] Jun, [facility] [place] [facility] [address] [id number] [place] [address] Jun, [facility] [place] [facility] [address] [id number] [place] [address] Jun, [facility] [place] [facility] [address] [id number] [place] [address] Jun, [facility] [place] [facility] [address] [id number] [place] [address] May, [facility] [place] [facility] [address] [id number] [place] [address] May, [facility] [place] [facility] [address] [id number] [place] [address] May, [facility] [place] [facility] [address] [id number] [place] [address] 24 May, 2011 [facility] [place] [facility] [address] [id number] [place] [address] May, [facility] [place] [facility] [address] [id number] [place] [address] May, [facility] [place] [facility] [address] [id number] [place] [address] Feb, [facility] [place] [facility] [address] [id number] [place] [address] December, [facility] [place] [facility] [address] [id number], [place] [address] Jul, [facility] [id number], [place] [address] Jul, [facility] [id number], [place] [address] Jul, [facility] [id number], [place] [address] Jul, [facility] [id number], [place] [address] Jun, [facility] [id number], [place] [address] Jul, [facility] [id number], [place] [address] Jul, [facility] [id number], [place] [address] Jul, [facility] [id number], [place] [address] Jul, [facility] [id number], [place] [address] Jul, [facility] [id number], [place] [address] Jul, [facility] [id number], [place] [address] Jan, [facility] [id number], [place] [address] 16 Sep, 2008 [facility] [id number] [address] Sep, IMMUNIZATIONS No Known Immunizations SOCIAL HISTORY Never Assessed REASON FOR VISIT followup Anxiety/ Grief PLAN OF CARE Activity Details Follow Up 3 Weeks Reason: Follow-up VITAL SIGNS MEDICATIONS Unknown Medications RESULTS No Results PROCEDURES Procedure Date Ordered Result Body Site Psychotherapy, patient &/family, 45 minutes, established patient Mar 31, 2018 INSTRUCTIONS MEDICATIONS ADMINISTERED No Known Medications [...]
--- OUTSIDE RECORDS SUMMARY | 2019-01-22 20:52 | XMS REPORT ---
Author Author KVNG MERCHANT Organization [facility] Address [address] [place] [address] Care Team Providers Care Employment Agency Manager Name Role Phone KVNG MERCHANT Unavailable PROBLEMS Type Condition ICD9-CM Code [id number] Code Onset Dates Condition Status SNOMED Code Problem Family history of diabetes mellitus Z83.3 Active 735637591 Problem Hot flashes N95.1 Active 956925772 Problem Excessive and frequent menstruation with irregular cycle N92.1 Active 924102415 Problem Diverticulitis K57.92 Active 602094058 Problem Gastroesophageal reflux disease with esophagitis K21.0 Active 291170634 Problem Mitral valve prolapse I34.1 Active 292305253 Problem Perimenopausal N95.1 Active 145347443201314 Problem Tachycardia R00.0 Active 9521453 Problem Abnormal uterine bleeding (AUB) N93.9 Active 82007456813390 Problem History of diverticulitis Z87.19 Active 251051944847249 Problem History of colon polyps Z86.010 Active 769724384 Problem Generalized anxiety disorder F41.1 Active 841893058 Problem Dense breast tissue R92.2 Active 012358003 Problem Hypertension I10 Active 82166549 Problem History of ovarian cyst Z87.42 Active 68247907 ALLERGIES No Information ENCOUNTERS Encounter Location Date Diagnosis [facility] [address] [facility] [id number] [address] May, [facility] [address] [facility] [id number] [address] Apr, [facility] [address] [address] Apr, [facility] [id number] [address] Mar, [facility] [id number] [place] [address] Mar, Diverticulitis K57.92 [facility] [id number] [place] [address] Mar, Generalized anxiety disorder F41.1 and Bereavement Z63.4 [facility] [id number] [place] [address] Mar, Hypertension I10 [facility] [id number] [place] [address] Mar, Generalized anxiety disorder F41.1 and Bereavement Z63.4 [facility] [id number] [place] [address] Feb, Generalized anxiety disorder F41.1 and Bereavement Z63.4 [facility] [id number] [place] [address] Feb, [facility] [id number] [place] [address] Feb, Generalized anxiety disorder F41.1 and Bereavement Z63.4 [facility] [id number] [place] [address] Feb, Generalized anxiety disorder F41.1 and Bereavement Z63.4 [facility] [id number] [place] [address] Jan, Hypertension I10 and Acute non-recurrent maxillary sinusitis J01.00 [facility] [id number] [place] [address] December, [facility] [id number] [place] [address] December, Hypertension I10 [facility] [id number] [place] [address] December, Generalized anxiety disorder F41.1 [facility] [address] [place] [id number] [place] [address] 16 Oct, 2017 Encounter for dental examination Z01.20 [facility] [address] [id number], [place] [address] 06 Oct, 2017 Encounter for dental examination Z01.20 [facility] [address] [id number], [place] [address] Oct, Dental examination Z01.20 [facility] [id number] [place] [address] Oct, Generalized anxiety disorder F41.1 [facility] [id number] [place] [address] Aug, Dental examination Z01.20 [facility] [id number] [place] [address] Aug, Generalized anxiety disorder F41.1 [facility] [id number] [place] [address] Aug, [facility] [address] [id number], [place] [address] Aug, Encounter for dental examination Z01.20 [facility] [id number] [place] [address] Aug, Subacute maxillary sinusitis J01.00 [facility] [address] [id number], [place] [address] Jul, Dental examination Z01.20 [facility] [id number] [place] [address] Jul, Generalized anxiety disorder F41.1 [facility] [id number] [place] [address] Jul, Diverticulitis K57.92 [facility] [id number] [place] [address] Jun, Encounter for immunization Z23 [facility] [address] [id number], [place] [address] Jun, Dental examination Z01.20 [facility] [id number] [place] [address] 14 Jun, 2017 Generalized anxiety disorder F41.1 [facility] [address] [id number], [place] [address] 07 Jun, 2017 Dental examination Z01.20 [facility] [address] [id number] [place] [address] May, [facility] [id number] [place] [address] [id number] May, Dental examination Z01.20 [facility] [address] [id number] [place] [id number] May, Dental examination Z01.20 [facility] [id number] [place] [address] May, Dental examination Z01.20 [facility] [address] [id number] [place] [address] May, [facility] [id number] [place] [address] May, Generalized anxiety disorder F41.1 [facility] [id number] [place] [address] 05 May, 2017 Localized edema R60.0 ; Yeast vaginitis B37.3 and Gastroesophageal reflux disease with esophagitis K21.0 [facility] [address] [id number] [id number] Apr, Dental examination Z01.20 [facility] [address] [id number], [place] [address] Apr, Dental examination Z01.20 [facility] [address] [id number], [place] [address] 05 Apr, 2017 Dental examination Z01.20 [facility] [address] [id number], [place] [address] Mar, Dyspepsia R10.13 [facility] [id number] [place] [address] Mar, Generalized anxiety disorder F41.1 [facility] [address] [id number], [place] [address] Mar, Encounter for dental examination Z01.20 [facility] [id number] [place] [id number] Mar, [facility] [id number] [place] [id number] Mar, Dental examination Z01.20 [facility] [id number] [place] [address] Feb, Hypertension I10 and Tachycardia R00.0 [facility] [address] [id number], [place] [address] Feb, [facility] [id number] [place] [address] Feb, Generalized anxiety disorder F41.1 [facility] [address] [place] [address] [id number] Feb, Dental examination Z01.20 [facility] [id number], [place] [address] Jan, Generalized anxiety disorder F41.1 [facility] [id number], [place] [address] December, Generalized anxiety disorder F41.1 [facility] [id number] [place] [address] [id number] December, Encounter for dental examination Z01.20 [facility] [id number], [place] [address] Nov, [facility] [id number] [place] [address] Nov, [facility] [id number] [place] [address] Nov, Generalized anxiety disorder F41.1 [facility] [id number] [place] [address] Oct, [facility] [id number] [place] [address] [id number] Oct, Dental examination Z01.20 [facility] [id number] [place] [address] Oct, Vaginal dryness N89.8 [facility] [id number] [place] [address] Oct, Pseudoseizures F44.5 [facility] [id number] [place] [address] Oct, Generalized anxiety disorder F41.1 [facility] [id number] [place] [address] Sep, Abnormal uterine bleeding (AUB) N93.9 ; Vaginal dryness N89.8 and Screening breast examination Z12.39 [facility] [id number] [place] [address] Sep, Dental examination Z01.20 [facility] [id number] [place] [address] Sep, Generalized anxiety disorder F41.1 [place] [facility] [id number] [place] [address] 06 Sep, 2016 Unspecified ovarian cyst, right side N83.201 ; Unspecified ovarian cyst, left side N83.202 ; Yeast infection of the vagina B37.3 ; Mitral valve prolapse I34.1 and Hypertension I10 [place] [id number] [place] [address] Aug, Generalized anxiety disorder F41.1 [facility] [id number] [place] [address] Jul, [facility] [id number] [place] [address] Jul, Generalized anxiety disorder F41.1 [facility] [id number] [place] [address] Jun, Generalized anxiety disorder F41.1 [facility] [id number] [place] [address] May, Encounter for immunization Z23 [facility] [id number] [place] [address] 17 May, 2016 Generalized anxiety disorder F41.1 and Depressive disorder, not elsewhere classified F32.9 [facility] [id number] [place] [address] 28 Apr, 2016 Hypertension I10 [facility] [address] [address] Apr, Cervicalgia M54.2 [facility] [id number] [place] [address] 12 Apr, 2016 Cervicalgia M54.2 [facility] [id number] [place] [address] 09 Mar, 2016 Generalized anxiety disorder F41.1 and Depressive disorder, not elsewhere classified F32.9 [facility] [id number] [place] [address] [id number] 14 Feb, 2016 Visit for dental examination Z01.20 [facility] [id number] [place] [address] 11 Feb, 2016 Pseudoseizures F44.5 ; Migraine without status migrainosus, not intractable, unspecified migraine type G43.909 and Essential hypertension I10 [facility] [id number] [place] [address] [id number] 06 Feb, 2016 Dental examination Z01.20 [facility] [id number] [place] [address] Feb, Generalized anxiety disorder F41.1 and Depressive disorder, not elsewhere classified F32.9 [place] [id number] [place] [address] Jan, Tachycardia R00.0 [place] [id number] [place] [address] December, Eustachian tube dysfunction, bilateral H69.83 [place] [id number] [place] [address] December, Generalized anxiety disorder F41.1 and Depressive disorder, not elsewhere classified F32.9 [place] [id number] [place] [address] Nov, [place] [id number] [place] [address] Nov, [place] [id number] [place] [address] Nov, Hypertension I10 ; Onychomycosis B35.1 ; [...] and Complex cyst of left ovary N83.29 [place] [id number] [place] [address] 14 Nov, 2015 Sinusitis J32.9 [facility] [id number] [place] [address] Oct, Complex cyst of left ovary N83.29 [facility] [id number] [place] [address] Oct, Onychomycosis B35.1 [facility] [id number] [id number] 17 Oct, 2015 Dental examination Z01.20 [place] [id number] [place] [address] Oct, Well woman exam Z01.419 ; Encounter [...] R92.2 and History of colon polyps Z86.010 [facility] [id number] [place] [address] Oct, Generalized anxiety disorder F41.1 and Depressive disorder, not elsewhere classified F32.9 [facility] [id number] [place] [address] Sep, Hypertension I10 and Onychomycosis B35.1 [place] [id number] [place] [address] 16 Sep, 2015 Skin tags, multiple acquired L91.8 [place] [id number] [place] [address] Aug, [place] [id number] [place] [address] Aug, [place] [id number] [place] [address] Aug, [place] [id number] [place] [address] Aug, Generalized anxiety disorder F41.1 and Depressive disorder, not elsewhere classified F32.9 [place] [facility] [address] [address] Jul, Skin lesion L98.9 [facility] [id number] [place] [address] Jun, Generalized anxiety disorder F41.1 and Depressive disorder, not elsewhere classified F32.9 [facility] [id number] [place] [address] Jun, [facility] [address] [address] Jun, Generalized anxiety disorder F41.1 [place] [address] [address] May, Encounter for immunization Z23 and Right shoulder pain M25.511 [facility] [id number] [place] [address] Apr, [facility] [address] [address] Apr, Generalized anxiety disorder 300.02 and Depressive disorder, not elsewhere classified 311 [facility] [id number] [place] [address] [id number] Mar, Dental examination V72.2 [place] [id number] [place] [address] Mar, Generalized anxiety disorder 300.02 and Depressive disorder, not elsewhere classified 311 [facility] [id number] [place] [address] Mar, Depression, major, recurrent, 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.35 and 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 [facility] [address] [address] Feb, Generalized anxiety disorder 300.02 and Depressive disorder, not elsewhere classified 311 [facility] [id number] [place] [address] [id number] Feb, Dental examination V72.2 [facility] [address] [place] [address] Jan, Generalized anxiety disorder 300.02 and Depressive disorder, not elsewhere classified 311 [facility] [address] [id number] [address] Jan, [facility] [address], [place] [address] December, Generalized anxiety disorder 300.02 and Depressive disorder, not elsewhere classified 311 [facility] [id number] [place] [address] December, Major depressive disorder, recurrent, unspecified 296.30 and Panic disorder with agoraphobia 300.21 [facility] [id number] [place] [address] Nov, [facility] [address], [place] [address] Nov, [facility] [address], [place] [address] Oct, [facility] [address], [place] [address] Oct, [facility] [address], [place] [address] Oct, [facility] [address], [place] [address] Oct, [facility] [address], [place] [address] Sep, [facility] [address] [address] Sep, [facility] [address] [address] Sep, [facility] [address], [place] [address] Sep, [facility] [address] [address] 17 Sep, 2014 [facility] [place] [facility] [address] [id number] [place] [address] Sep, 2014 [facility] [place] [facility] [address] [id number] [place] [address] Sep, 2014 [facility] [place] [facility] [address] [id number] [place] [address] Sep, 2014 [facility] [place] [facility] [address] [id number] [place] [address] Sep, 2014 [facility] [place] [facility] [address] [id number] [place] [address] Sep, 2014 [facility] [place] [facility] [address] [facility] [id number] [place] [address] Aug, [facility] [place] [facility] [address] [facility] [id number] [place] [address] Aug, [facility] [place] [facility] [address] [id number] [place] [address] 19 Jul, 2014 [facility] [place] [facility] [address] [facility] [id number] [place] [address] 19 Jul, 2014 [facility] [place] [facility] [address] [facility] [id number] [place] [address] 18 Jul, 2014 [facility] [place] [facility] [address] [facility] [id number] [place] [address] 18 Jul, 2014 [facility] [place] [facility] [address] [id number] [place] [address] 11 Jul, 2014 [facility] [place] [facility] [address] [id number] [place] [address] 11 Jul, 2014 [facility] [place] [facility] [address] [facility] [id number] [place] [address] 05 Jul, 2014 [facility] [place] [facility] [address] [id number] [place] [address] Jul, [facility] [place] [facility] [address] [id number] [place] [address] Jul, [facility] [place] [facility] [address] [id number] [place] [address] Jul, [facility] [place] [facility] [address] [id number] [place] [address] Jul, [facility] [place] [facility] [address] [id number] [place] [address] Jul, [facility] [place] [facility] [address] [id number] [place] [address] Jun, [facility] [place] [facility] [address] [id number] [place] [address] Jun, [facility] [place] [facility] [address] [id number] [place] [address] May, [facility] [place] [facility] [address] [id number], [place] [address] May, [facility] [place] [facility] [address] [id number], [place] [address] May, [facility] [place] [facility] [address] [id number][place] [address] May, [facility] [place] [facility] [address] [id number], [place] [address] May, [facility] [place] [facility] [address] [id number], [place] [address] May, [facility] [place] [facility] [address] [id number], [place] [address] May, [facility] [place] [facility] [address] [id number], [place] [address] May, [facility] [place] [facility] [address] [id number], [place] [address] May, [facility] [place] [facility] [address] [id number] [place] [address] May, [facility] [place] [facility] [address] [id number] [place] [address] May, [facility] [place] [facility] [address] [id number] [place] [address] May, [facility] [place] [facility] [address] [id number] [place] [address] Apr, [facility] [place] [facility] [address] [id number] [place] [address] 30 Apr, 2014 [facility] [place] [facility] [address] [id number] [place] [address] Apr, [facility] [place] [facility] [address] [id number] [place] [address] Apr, [facility] [place] [facility] [address] [id number] [place] [address] Apr, [facility] [place] [facility] [address] [id number] [place] [address] Apr, [facility] [place] [facility] [address] [id number] [place] [address] Feb, [facility] [place] [facility] [address] [id number] [place] [address] Feb, [facility] [place] [facility] [address] [id number] [place] [address] Feb, [facility] [place] [facility] [address] [id number] [place] [address] Feb, [facility] [place] [facility] [address] [id number] [place] [address] Feb, [facility] [place] [facility] [address] [id number] [place] [address] Feb, [facility] [place] [facility] [address] [id number] [place] [address] Jan, [facility] [place] [facility] [address] [id number] [place] [address] Jan, [facility] [place] [facility] [address] [id number] [place] [address] Jan, [facility] [place] [facility] [address] [id number] [place] [address] Jan, [facility] [place] [facility] [address] [id number] [place] [address] Jan, [facility] [place] [facility] [address] [id number] [place] [address] Jan, [facility] [place] [facility] [address] [id number] [place] [address] Jan, [facility] [place] [facility] [address] [id number] [place] [address] Jan, [facility] [place] [facility] [address] [id number] [place] [address] December, [facility] [place] [facility] [address] [id number] [place] [address] December, [facility] [place] [facility] [address] [id number] [place] [address] December, [facility] [place] [facility] [address] [id number] [place] [address] December, [facility] [place] [facility] [address] [id number] [place] [address] Nov, [facility] [place] [facility] [address] [id number] [place] [address] Nov, [facility] [place] [facility] [address] [id number] [place] [address] Nov, [facility] [place] [facility] [address] [id number] [place] [address] Nov, [facility] [place] [facility] [address] [id number] [place] [address] Nov, [facility] [address] [id number] [place] [address] Nov, [facility] [place] [facility] [address] [id number] [place] [address] Nov, [facility] [place] [facility] [address] [id number] [place] [address] Nov, [facility] [place] [facility] [address] [id number] [place] [address] Oct, [facility] [place] [facility] [address] [id number] [place] [address] Oct, [facility] [place] [facility] [address] [id number] [place] [address] Sep, [facility] [address] [address] [id number] [place] [address] Sep, [facility] [place] [facility] [address] [facility] [id number] [place] [id number] Sep, [facility] [place] [facility] [address] [id number] [place] [address] Sep, [facility] [place] [facility] [address] [id number] [place] [address] Sep, [facility] [place] [facility] [address] [id number] [place] [address] Sep, [facility] [place] [facility] [address] [id number] [address] Aug, [facility] [place] [facility] [address] [id number] [place] [address] Aug, [facility] [place] [facility] [address] [id number] [place] [address] Aug, [facility] [place] [facility] [address] [id number], [place] [address] Aug, [facility] [place] [facility] [address] [id number] [place] [address] Jul, [facility] [place] [facility] [address] [id number] [place] [address] Jul, [facility] [place] [facility] [address] [id number] [place] [address] Jul, [facility] [place] [facility] [address] [id number] [place] [address] Jul, [facility] [place] [facility] [address] [id number] [place] [address] Jun, [facility] [place] [facility] [address] [id number] [place] [address] Jun, [facility] [place] [facility] [address] [id number] [place] [address] May, [facility] [place] [facility] [address] [id number] [place] [address] May, [facility] [place] [facility] [address] [id number] [place] [address] May, [facility] [place] [facility] [address] [id number] [place] [address] May, [facility] [place] [facility] [address] [id number] [place] [address] May, [facility] [place] [facility] [address] [id number] [place] [address] 17 Apr, 2013 [facility] [place] [facility] [address] [id number] [place] [address] 10 Apr, 2013 [facility] [place] [facility] [address] [id number] [place] [address] 29 Mar, 2013 [facility] [place] [facility] [address] [id number] [place] [address] Mar, [facility] [place] [facility] [address] [id number] [place] [address] Mar, [facility] [address] [id number] [place] [address] Mar, [facility] [place] [facility] [address] [id number] [place] [address] Feb, [facility] [place] [facility] [address] [id number] [place] [address] Feb, [facility] [place] [facility] [address] [id number] [place] [address] Feb, [facility] [place] [facility] [address] [id number] [place] [address] Feb, [facility] [place] [facility] [address] [id number] [place] [address] Feb, [facility] [place] [facility] [address] [id number] [place] [address] Jan, [facility] [place] [facility] [address] [id number] [place] [address] Jan, [facility] [place] [facility] [address] [id number] [place] [address] Jan, [facility] [place] [facility] [address] [id number] [place] [address] Jan, [facility] [place] [facility] [address] [id number] [address] Jan, [facility] [place] [facility] [address] [id number], [place] [address] December, [facility] [place] [facility] [address] [id number] [place] [address] December, [facility] [place] [facility] [address] [id number] [place] [address] Nov, [facility] [place] [facility] [address] [id number] [place] [address] Nov, [facility] [place] [facility] [address] [id number] [place] [address] 19 Oct, 2012 [facility] [address] [id number] [place] [address] 13 Oct, 2012 [facility] [address] [id number] [place] [address] 05 Oct, 2012 [facility] [address] [id number] [place] [address] 14 Sep, 2012 [facility] [address] [id number] [place] [address] 24 Aug, 2012 [facility] [address] [id number] [place] [address] 16 Aug, 2012 [facility] [address] [id number] [place] [address] 15 Aug, 2012 [facility] [address] [id number] [place] [address] Aug, [facility] [address] [id number] [place] [address] Jul, [facility] [address] [id number] [place] [address] Jul, [facility] [address] [facility] [id number] [place] [address] Jul, [facility] [address] [id number] [place] [address] Jul, [facility] [address] [id number] [place] [address] Jul, [facility] [address] [id number] [place] [address] Jul, [facility] [address] [id number] [place] [address] Jul, [facility] [address] [id number] [place] [address] Jul, [facility] [place] [facility] [address] [id number] [place] [address] Jun, [facility] [place] [facility] [address] [id number] [place] [address] Jun, [facility] [place] [facility] [address] [id number] [place] [address] Jun, [facility] [place] [facility] [address] [id number] [place] [address] Jun, [facility] [place] [facility] [address] [id number] [place] [address] Jun, [facility] [place] [facility] [address] [id number] [place] [address] Jun, [facility] [place] [facility] [address] [facility] [id number] [place] [address] May, [facility] [place] [facility] [address] [id number] [place] [address] May, [facility] [place] [facility] [address] [id number] [place] [address] May, [facility] [place] [facility] [address] [id number] [place] [address] May, [facility] [place] [facility] [address] [facility] [id number] [place] [address] Apr, [facility] [place] [facility] [address] [id number], [place] [address] Apr, [facility] [place] [facility] [address] [id number] [place] [address] Mar, [facility] [place] [facility] [address] [id number] [place] [address] Jan, [facility] [place] [facility] [address] [id number] [place] [address] Jan, [facility] [place] [facility] [address] [id number], [place] [address] 16 Jan, 2012 [facility] [address] [id number] [place] [address] 15 Jan, 2012 [facility] [place] [facility] [address] [id number] [place] [address] Jan, [facility] [place] [facility] [address] [id number] [place] [address] Jan, [facility] [place] [facility] [address] [id number] [place] [address] 07 Jan, 2012 [facility] [place] [facility] [address] [id number] [place] [address] December, [facility] [place] [facility] [address] [id number] [place] [address] December, [facility] [address] [facility] [id number] [place] [address] December, [facility] [place] [facility] [address] [facility] [id number] [place] [address] December, [facility] [place] [facility] [address] [id number] [place] [address] Nov, [facility] [place] [facility] [address] [facility] [id number] [place] [address] Nov, [facility] [place] [facility] [address] [id number] [place] [address] Oct, [facility] [place] [facility] [address] [id number] [place] [address] Oct, [facility] [place] [facility] [address] [id number] [place] [address] Oct, [facility] [place] [facility] [address] [id number] [place] [address] Sep, [facility] [place] [facility] [address] [facility] [id number] [place] [address] Sep, [facility] [place] [facility] [address] [id number] [place] [address] Sep, [facility] [place] [facility] [address] [id number] [place] [address] Aug, [facility] [place] [facility] [address] [id number] [place] [address] Aug, [facility] [place] [facility] [address] [id number] [place] [address] Aug, [facility] [place] [facility] [address] [id number] [place] [address] Aug, [facility] [place] [facility] [address] [id number] [place] [address] Aug, [facility] [place] [facility] [address] [id number] [place] [address] Aug, [facility] [place] [facility] [address] [id number] [place] [address] Aug, [facility] [place] [facility] [address] [id number] [place] [address] Jul, [facility] [place] [facility] [address] [id number] [place] [address] Jul, [facility] [place] [facility] [address] [id number] [place] [address] Jun, [facility] [place] [facility] [address] [id number] [place] [address] 28 Jun, 2011 [facility] [place] [facility] [address] [id number] [place] [address] 17 Jun, 2011 [facility] [place] [facility] [address] [id number] [place] [address] 15 Jun, 2011 [facility] [place] [facility] [address] [id number] [place] [address] 14 Jun, 2011 [facility] [place] [facility] [address] [id number] [place] [address] 14 Jun, 2011 [facility] [place] [facility] [address] [id number] [place] [address] Jun, [facility] [place] [facility] [address] [id number] [place] [address] Jun, [facility] [place] [facility] [address] [id number] [place] [address] Jun, [facility] [place] [facility] [address] [id number] [place] [address] Jun, [facility] [place] [facility] [address] [id number] [place] [address] May, [facility] [place] [facility] [address] [id number] [place] [address] May, [facility] [place] [facility] [address] [id number] [place] [address] May, [facility] [place] [facility] [address] [id number] [place] [address] 24 May, 2011 [facility] [place] [facility] [address] [id number] [place] [address] May, [facility] [place] [facility] [address] [id number] [place] [address] May, [facility] [place] [facility] [address] [id number], [place] [address] Feb, [facility] [place] [facility] [address] [id number], [place] [address] December, [facility] [place] [facility] [address] [id number] [place] [address] Jul, [facility] [place] [facility] [address] [id number] [place] [address] Jul, [facility] [place] [facility] [address] [id number] [place] [address] Jul, [facility] [place] [facility] [id number], [place] [address] Jul, [facility] [id number], [place] [address] Jun, [facility] [id number], [place] [address] Jul, [facility] [id number], [place] [address] Jul, [facility] [id number], [place] [address] Jul, [facility] [id number] [place] [address] Jul, [facility] [id number], [place] [address] Jul, [facility] [id number] [place] [address] Jul, [facility] [id number], [place] [address] Jan, [facility] [id number], [place] [address] 16 Sep, 2008 [facility] [id number], [place] [address] Sep, IMMUNIZATIONS No Known Immunizations SOCIAL HISTORY Never Assessed REASON FOR VISIT followup Anxiety/ Grief PLAN OF CARE Activity Details Follow Up 3 Weeks Reason: Follow-up VITAL SIGNS MEDICATIONS Unknown Medications RESULTS No Results PROCEDURES Procedure Date Ordered Result Body Site Psychotherapy, patient &/family, 30 minutes, established patient March 16, 2018 INSTRUCTIONS MEDICATIONS ADMINISTERED No Known Medications [...]
--- OUTSIDE RECORDS SUMMARY | 2019-01-22 20:52 | XMS REPORT ---
Author Author KVNG MERCHANT Organization [facility] Address [address] [place] [address] Care Team Providers Care Pumper Brewery Name Role Phone KVNG MERCHANT Unavailable PROBLEMS Type Condition ICD9-CM Code KPS06-RX Code Onset Dates Condition Status SNOMED Code Problem Family history of diabetes mellitus Z83.3 Active 202140821 Problem Hot flashes N95.1 Active 705081623 Problem Excessive and frequent menstruation with irregular cycle N92.1 Active 746538947 Problem Diverticulitis K57.92 Active 662313601 Problem Gastroesophageal reflux disease with esophagitis K21.0 Active 935744425 Problem Mitral valve prolapse I34.1 Active 906707455 Problem Perimenopausal N95.1 Active [id number] Problem Tachycardia R00.0 Active 6503938 Problem Abnormal uterine bleeding (AUB) N93.9 Active 82119519559731 Problem History of diverticulitis Z87.19 Active 966982251507161 Problem History of colon polyps Z86.010 Active 594759997 Problem Generalized anxiety disorder F41.1 Active 536727644 Problem Dense breast tissue R92.2 Active 219900367 Problem Hypertension I10 Active 27350891 Problem History of ovarian cyst Z87.42 Active 53288172 ALLERGIES No Information ENCOUNTERS Encounter Location Date Diagnosis [facility] [address] [facility] [id number] [address] May, [facility] [address] [facility] [id number] [address] Apr, [facility] [address] [address] Apr, [facility] [address] [id number] [address] Mar, [facility] [id number] [place] [address] Mar, Diverticulitis K57.92 [facility] [id number] [place] [address] Mar, Generalized anxiety disorder F41.1 and Bereavement Z63.4 [facility] [id number] [place] [address] Mar, Hypertension I10 [facility] [id number] [place] [address] Mar, Generalized anxiety disorder F41.1 and Bereavement Z63.4 [facility] [id number] [place] [address] Feb, Generalized anxiety disorder F41.1 and Bereavement Z63.4 [facility] [id number] [place] [address] Feb, [facility] [id number] [place] [address] Feb, Generalized anxiety disorder F41.1 and Bereavement Z63.4 [facility] [id number] [place] [address] Feb, Generalized anxiety disorder F41.1 and Bereavement Z63.4 [facility] [address] [place] [address] Jan, Hypertension I10 and Acute non-recurrent maxillary sinusitis J01.00 [facility] [address] [place] [address] December, [facility] [id number] [place] [address] December, Hypertension I10 [facility] [address] [place] [address] December, Generalized anxiety disorder F41.1 [facility] [address] [place] [id number] [place] [address] 16 Oct, 2017 Encounter for dental examination Z01.20 [facility] [address] [id number], [place] [address] 06 Oct, 2017 Encounter for dental examination Z01.20 [facility] [address] [id number], [place] [address] Oct, Dental examination Z01.20 [facility] [id number] [place] [address] Oct, Generalized anxiety disorder F41.1 [facility] [id number] [place] [address] Aug, Dental examination Z01.20 [facility] [id number] [place] [address] Aug, Generalized anxiety disorder F41.1 [facility] [id number] [place] [address] Aug, [facility] [address] [id number], [place] [address] Aug, Encounter for dental examination Z01.20 [facility] [id number] [place] [address] Aug, Subacute maxillary sinusitis J01.00 [facility] [address] [id number], [place] [address] Jul, Dental examination Z01.20 [facility] [id number] [place] [address] Jul, Generalized anxiety disorder F41.1 [facility] [id number] [place] [address] Jul, Diverticulitis K57.92 [facility] [id number] [place] [address] Jun, Encounter for immunization Z23 [facility] [address] [id number], [place] [address] Jun, Dental examination Z01.20 [facility] [address] [id number] [place] [address] 14 Jun, 2017 Generalized anxiety disorder F41.1 [facility] [address] [id number], [place] [address] 07 Jun, 2017 Dental examination Z01.20 [facility] [id number] [place] [address] May, [facility] [id number] [place] [address] [id number] May, Dental examination Z01.20 [facility] [id number] [place] [id number] May, Dental examination Z01.20 [facility] [id number] [place] [address] May, Dental examination Z01.20 [facility] [id number] [place] [address] May, [facility] [id number] [place] [address] May, Generalized anxiety disorder F41.1 [facility] [id number] [place] [address] 05 May, 2017 Localized edema R60.0 ; Yeast vaginitis B37.3 and Gastroesophageal reflux disease with esophagitis K21.0 [facility] [address] [id number] [id number] Apr, Dental examination Z01.20 [facility] [address] [id number], [place] [address] Apr, Dental examination Z01.20 [facility] [address] [id number], [place] [address] 05 Apr, 2017 Dental examination Z01.20 [facility] [address] [id number], [place] [address] Mar, Dyspepsia R10.13 [facility] [id number] [place] [address] Mar, Generalized anxiety disorder F41.1 [facility] [address] [id number], [place] [address] Mar, Encounter for dental examination Z01.20 [facility] [id number] [place] [address] [id number] Mar, [facility] [id number] [place] [address] [id number] Mar, Dental examination Z01.20 [facility] [id number] [place] [address] Feb, Hypertension I10 and Tachycardia R00.0 [facility] [address] [id number], [place] [address] Feb, [facility] [id number] [place] [address] Feb, Generalized anxiety disorder F41.1 [facility] [address] [place] [address] [id number] Feb, Dental examination Z01.20 [facility] [address] [id number] [address] Jan, Generalized anxiety disorder F41.1 [facility] [id number] [address] December, Generalized anxiety disorder F41.1 [facility] [id number] [place] [address] [id number] December, Encounter for dental examination Z01.20 [facility] [address] [id number] [address] Nov, [facility] [id number] [place] [address] Nov, [facility] [address] [place] [address] Nov, Generalized anxiety disorder F41.1 [facility] [address] [place] [address] Oct, [facility] [address] [place] [address] [id number] Oct, Dental examination Z01.20 [facility] [id number] [place] [address] Oct, Vaginal dryness N89.8 [facility] [id number] [place] [address] Oct, Pseudoseizures F44.5 [facility] [id number] [place] [address] Oct, Generalized anxiety disorder F41.1 [facility] [id number] [place] [address] Sep, Abnormal uterine bleeding (AUB) N93.9 ; Vaginal dryness N89.8 and Screening breast examination Z12.39 [facility] [id number] [place] [address] Sep, Dental examination Z01.20 [facility] [id number] [place] [address] Sep, Generalized anxiety disorder F41.1 [facility] [address] [place] [address] 06 Sep, 2016 Unspecified ovarian cyst, right side N83.201 ; Unspecified ovarian cyst, left side N83.202 ; Yeast infection of the vagina B37.3 ; Mitral valve prolapse I34.1 and Hypertension I10 [facility] [address] [place] [address] Aug, Generalized anxiety disorder F41.1 [facility] [id number] [place] [address] Jul, [facility] [id number] [place] [address] Jul, Generalized anxiety disorder F41.1 [facility] [id number] [place] [address] Jun, Generalized anxiety disorder F41.1 [facility] [id number] [place] [address] May, Encounter for immunization Z23 [facility] [id number] [place] [address] 17 May, 2016 Generalized anxiety disorder F41.1 and Depressive disorder, not elsewhere classified F32.9 [facility] [id number] [place] [address] 28 Apr, 2016 Hypertension I10 [facility] [address] [address] Apr, Cervicalgia M54.2 [facility] [id number] [place] [address] 12 Apr, 2016 Cervicalgia M54.2 [facility] [id number] [place] [address] 09 Mar, 2016 Generalized anxiety disorder F41.1 and Depressive disorder, not elsewhere classified F32.9 [facility] [id number] [place] [address] [id number] 14 Feb, 2016 Visit for dental examination Z01.20 [facility] [id number] [place] [address] 11 Feb, 2016 Pseudoseizures F44.5 ; Migraine without status migrainosus, not intractable, unspecified migraine type G43.909 and Essential hypertension I10 [facility] [id number] [place] [address] [id number] 06 Feb, 2016 Dental examination Z01.20 [facility] [address] [place] [address] Feb, Generalized anxiety disorder F41.1 and Depressive disorder, not elsewhere classified F32.9 [facility] [id number] [place] [address] Jan, Tachycardia R00.0 [facility] [id number] [place] [address] December, Eustachian tube dysfunction, bilateral H69.83 [facility] [id number] [place] [address] December, Generalized anxiety disorder F41.1 and Depressive disorder, not elsewhere classified F32.9 [facility] [id number] [place] [address] Nov, [facility] [id number] [place] [address] Nov, [facility] [id number] [place] [address] Nov, Hypertension I10 ; Onychomycosis B35.1 ; [...] and Complex cyst of left ovary N83.29 [facility] [address] [place] [address] 14 Nov, 2015 Sinusitis J32.9 [facility] [id number] [place] [address] Oct, Complex cyst of left ovary N83.29 [facility] [id number] [place] [address] Oct, Onychomycosis B35.1 [facility] [id number] [id number] 17 Oct, 2015 Dental examination Z01.20 [facility] [id number] [place] [address] Oct, Well woman exam Z01.419 ; Encounter [...] R92.2 and History of colon polyps Z86.010 [facility] [id number] [place] [address] Oct, Generalized anxiety disorder F41.1 and Depressive disorder, not elsewhere classified F32.9 [facility] [id number] [place] [address] Sep, Hypertension I10 and Onychomycosis B35.1 [facility] [id number] [place] [address] 16 Sep, 2015 Skin tags, multiple acquired L91.8 [facility] [id number] [place] [address] Aug, [facility] [id number] [place] [address] Aug, [place] [id number] [place] [address] Aug, [place] [id number] [place] [address] Aug, Generalized anxiety disorder F41.1 and Depressive disorder, not elsewhere classified F32.9 [facility] [address] [address] Jul, Skin lesion L98.9 [facility] [id number] [place] [address] Jun, Generalized anxiety disorder F41.1 and Depressive disorder, not elsewhere classified F32.9 [facility] [id number] [place] [address] Jun, [facility] [address] [address] Jun, Generalized anxiety disorder F41.1 [facility] [address] [address] May, Encounter for immunization Z23 and Right shoulder pain M25.511 [facility] [id number] [place] [address] Apr, [facility] [address] [address] Apr, Generalized anxiety disorder 300.02 and Depressive disorder, not elsewhere classified 311 [facility] [id number] [place] [address] [id number] Mar, Dental examination V72.2 [facility] [id number] [place] [address] Mar, Generalized anxiety disorder 300.02 and Depressive disorder, not elsewhere classified 311 [facility] [id number] [place] [address] Mar, Depression, major, recurrent, 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.35 and 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 [facility] [address] [address] Feb, Generalized anxiety disorder 300.02 and Depressive disorder, not elsewhere classified 311 [facility] [id number] [place] [address] [id number] Feb, Dental examination V72.2 [facility] [address] [place] [address] Jan, Generalized anxiety disorder 300.02 and Depressive disorder, not elsewhere classified 311 [facility] [id number] [address] Jan, [facility] [address] [address] December, Generalized anxiety disorder 300.02 and Depressive disorder, not elsewhere classified 311 [facility] [id number] [place] [address] December, Major depressive disorder, recurrent, unspecified 296.30 and Panic disorder with agoraphobia 300.21 [facility] [id number] [place] [address] Nov, [facility] [address] [address] Nov, [facility] [address] [address] Oct, [facility] [address] [address] Oct, [facility] [address] [address] Oct, [facility] [address] [address] Oct, [facility] [address] [address] Sep, [facility] [address] [address] Sep, [facility] [address] [address] Sep, [facility] [address] [address] Sep, [facility] [address] [place] [address] 17 Sep, 2014 [facility] [place] [facility] [address] [id number] [place] [address] Sep, 2014 [facility] [place] [facility] [address] [id number] [place] [address] Sep, 2014 [facility] [place] [facility] [address] [id number] [place] [address] Sep, 2014 [facility] [place] [facility] [address] [id number] [place] [address] Sep, 2014 [facility] [place] [facility] [address] [id number] [place] [address] Sep, 2014 [facility] [place] [facility] [address] [facility] [id number] [place] [address] Aug, [facility] [place] [facility] [address] [facility] [id number] [place] [address] Aug, [facility] [place] [facility] [address] [id number] [place] [address] 19 Jul, 2014 [facility] [place] [facility] [address] [facility] [id number] [place] [address] 19 Jul, 2014 [facility] [place] [facility] [address] [facility] [id number] [place] [address] 18 Jul, 2014 [facility] [place] [facility] [address] [facility] [id number] [place] [address] 18 Jul, 2014 [facility] [place] [facility] [address] [id number] [place] [address] 11 Jul, 2014 [facility] [place] [facility] [address] [id number] [place] [address] 11 Jul, 2014 [facility] [place] [facility] [address] [facility] [id number] [place] [address] 05 Jul, 2014 [facility] [place] [facility] [address] [id number] [place] [address] Jul, [facility] [place] [facility] [address] [id number] [place] [address] Jul, [facility] [place] [facility] [address] [id number] [place] [address] Jul, [facility] [place] [facility] [address] [id number] [place] [address] Jul, [facility] [place] [facility] [address] [id number] [place] [address] Jul, [facility] [place] [facility] [address] [id number] [place] [address] Jun, [facility] [place] [facility] [address] [id number] [place] [address] Jun, [facility] [place] [facility] [address] [id number] [place] [address] May, [facility] [place] [facility] [address] [id number] [address] May, [facility] [place] [facility] [address] [id number], [place] [address] May, [facility] [place] [facility] [address] [id number], [place] [address] May, [facility] [place] [facility] [address] [id number], [place] [address] May, [facility] [place] [facility] [address] [id number] [address] May, [facility] [place] [facility] [address] [id number] [address] May, [facility] [place] [facility] [address] [id number] [address] May, [facility] [place] [facility] [address] [id number] [address] May, [facility] [place] [facility] [address] [id number] [place] [address] May, [facility] [place] [facility] [address] [id number] [place] [address] May, [facility] [place] [facility] [address] [id number] [place] [address] May, [facility] [place] [facility] [address] [id number] [place] [address] Apr, [facility] [place] [facility] [address] [id number] [place] [address] 30 Apr, 2014 [facility] [place] [facility] [address] [id number] [place] [address] Apr, [facility] [place] [facility] [address] [id number] [place] [address] Apr, [facility] [place] [facility] [address] [id number] [place] [address] Apr, [facility] [place] [facility] [address] [id number] [place] [address] Apr, [facility] [place] [facility] [address] [id number] [place] [address] Feb, [facility] [place] [facility] [address] [id number] [place] [address] Feb, [facility] [place] [facility] [address] [id number] [place] [address] Feb, [facility] [place] [facility] [address] [id number] [place] [address] Feb, [facility] [place] [facility] [address] [id number] [place] [address] Feb, [facility] [place] [facility] [address] [id number] [place] [address] Feb, [facility] [place] [facility] [address] [id number] [place] [address] Jan, [facility] [place] [facility] [address] [id number] [place] [address] Jan, [facility] [place] [facility] [address] [id number] [place] [address] Jan, [facility] [place] [facility] [address] [id number] [place] [address] Jan, [facility] [place] [facility] [address] [id number] [place] [address] Jan, [facility] [place] [facility] [address] [id number] [place] [address] Jan, [facility] [place] [facility] [address] [id number] [place] [address] Jan, [facility] [place] [facility] [address] [id number] [place] [address] Jan, [facility] [place] [facility] [address] [id number] [place] [address] December, [facility] [place] [facility] [address] [id number] [place] [address] December, [facility] [place] [facility] [address] [id number] [place] [address] December, [facility] [place] [facility] [address] [id number] [place] [address] December, [facility] [place] [facility] [address] [id number] [place] [address] Nov, [facility] [place] [facility] [address] [id number] [place] [address] Nov, [facility] [place] [facility] [address] [id number] [place] [address] Nov, [facility] [place] [facility] [address] [id number] [place] [address] Nov, [facility] [place] [facility] [address] [id number] [place] [address] Nov, [facility] [address] [id number] [place] [address] Nov, [facility] [place] [facility] [address] [id number] [place] [address] Nov, [facility] [place] [facility] [address] [id number] [place] [address] Nov, [facility] [place] [facility] [address] [id number] [place] [address] Oct, [facility] [place] [facility] [address] [id number] [place] [address] Oct, [facility] [place] [facility] [address] [id number] [place] [address] Sep, [facility] [address] [id number] [place] [address] Sep, [facility] [place] [facility] [address] [facility] [id number] [place] [id number] Sep, [facility] [place] [facility] [address] [id number] [place] [address] Sep, [facility] [place] [facility] [address] [id number] [place] [address] Sep, [facility] [place] [facility] [address] [id number] [place] [address] Sep, [facility] [place] [facility] [address] [id number] [address] Aug, [facility] [place] [facility] [address] [id number] [place] [address] Aug, [facility] [place] [facility] [address] [id number] [place] [address] Aug, [facility] [place] [facility] [address] [id number] [address] Aug, [facility] [place] [facility] [address] [id number] [place] [address] Jul, [facility] [place] [facility] [address] [id number] [place] [address] Jul, [facility] [place] [facility] [address] [id number] [place] [address] Jul, [facility] [place] [facility] [address] [id number] [place] [address] Jul, [facility] [place] [facility] [address] [id number] [place] [address] Jun, [facility] [place] [facility] [address] [id number] [place] [address] Jun, [facility] [place] [facility] [address] [id number] [place] [address] May, [facility] [place] [facility] [address] [id number] [place] [address] May, [facility] [place] [facility] [address] [id number] [place] [address] May, [facility] [place] [facility] [address] [id number] [place] [address] May, [facility] [place] [facility] [address] [id number] [place] [address] May, [facility] [place] [facility] [address] [id number] [place] [address] 17 Apr, 2013 [facility] [place] [facility] [address] [id number] [place] [address] 10 Apr, 2013 [facility] [place] [facility] [address] [id number] [place] [address] 29 Mar, 2013 [facility] [place] [facility] [address] [id number] [place] [address] Mar, [facility] [place] [facility] [address] [id number] [place] [address] Mar, [facility] [address] [id number] [place] [address] Mar, [facility] [place] [facility] [address] [id number] [place] [address] Feb, [facility] [place] [facility] [address] [id number] [place] [address] Feb, [facility] [place] [facility] [address] [id number] [place] [address] Feb, [facility] [place] [facility] [address] [id number] [place] [address] Feb, [facility] [place] [facility] [address] [id number] [place] [address] Feb, [facility] [place] [facility] [address] [id number] [place] [address] Jan, [facility] [place] [facility] [address] [id number] [place] [address] Jan, [facility] [place] [facility] [address] [id number] [place] [address] Jan, [facility] [place] [facility] [address] [id number] [place] [address] Jan, [facility] [place] [facility] [address] [id number] [address] Jan, [facility] [place] [facility] [address] [id number] [address] December, [facility] [place] [facility] [address] [id number] [place] [address] December, [facility] [place] [facility] [address] [id number] [place] [address] Nov, [facility] [place] [facility] [address] [id number] [place] [address] Nov, [facility] [place] [facility] [address] [id number] [place] [address] 19 Oct, 2012 [facility] [address] [id number] [place] [address] 13 Oct, 2012 [facility] [address] [id number] [place] [address] 05 Oct, 2012 [facility] [address] [id number] [place] [address] 14 Sep, 2012 [facility] [address] [id number] [place] [address] 24 Aug, 2012 [facility] [address] [id number] [place] [address] 16 Aug, 2012 [facility] [address] [id number] [place] [address] 15 Aug, 2012 [facility] [address] [id number] [place] [address] Aug, [facility] [address] [id number] [place] [address] Jul, [facility] [address] [id number] [place] [address] Jul, [facility] [address] [facility] [id number] [place] [address] Jul, [facility] [address] [id number] [place] [address] Jul, [facility] [address] [id number] [place] [address] Jul, [facility] [address] [id number] [place] [address] Jul, [facility] [address] [id number] [place] [address] Jul, [facility] [address] [id number] [place] [address] Jul, [facility] [place] [facility] [address] [id number] [place] [address] Jun, [facility] [place] [facility] [address] [id number] [place] [address] Jun, [facility] [place] [facility] [address] [id number] [place] [address] Jun, [facility] [place] [facility] [address] [id number] [place] [address] Jun, [facility] [place] [facility] [address] [id number] [place] [address] Jun, [facility] [place] [facility] [address] [id number] [place] [address] Jun, [facility] [place] [facility] [address] [facility] [id number] [place] [address] May, [facility] [place] [facility] [address] [id number] [place] [address] May, [facility] [place] [facility] [address] [id number] [place] [address] May, [facility] [place] [facility] [address] [id number] [place] [address] May, [facility] [place] [facility] [address] [facility] [id number] [place] [address] Apr, [facility] [place] [facility] [address] [id number], [place] [address] Apr, [facility] [place] [facility] [address] [id number] [place] [address] Mar, [facility] [place] [facility] [address] [id number] [place] [address] Jan, [facility] [place] [facility] [address] [id number] [place] [address] Jan, [facility] [place] [facility] [address] [id number], [place] [address] 16 Jan, 2012 [facility] [address] [id number] [place] [address] 15 Jan, 2012 [facility] [place] [facility] [address] [id number] [place] [address] Jan, [facility] [place] [facility] [address] [id number] [place] [address] Jan, [facility] [place] [facility] [address] [id number] [place] [address] 07 Jan, 2012 [facility] [place] [facility] [address] [id number] [place] [address] December, [facility] [place] [facility] [address] [id number] [place] [address] December, [facility] [address] [facility] [id number] [place] [address] December, [facility] [place] [facility] [address] [facility] [id number] [place] [address] December, [facility] [place] [facility] [address] [id number] [place] [address] Nov, [facility] [place] [facility] [address] [facility] [id number] [place] [address] Nov, [facility] [place] [facility] [address] [id number] [place] [address] Oct, [facility] [place] [facility] [address] [id number] [place] [address] Oct, [facility] [place] [facility] [address] [id number] [place] [address] Oct, [facility] [place] [facility] [address] [id number] [place] [address] Sep, [facility] [place] [facility] [address] [facility] [id number] [place] [address] Sep, [facility] [place] [facility] [address] [id number] [place] [address] Sep, [facility] [place] [facility] [address] [id number] [place] [address] Aug, [facility] [place] [facility] [address] [id number] [place] [address] Aug, [facility] [place] [facility] [address] [id number] [place] [address] Aug, [facility] [place] [facility] [address] [id number] [place] [address] Aug, [facility] [place] [facility] [address] [id number] [place] [address] Aug, [facility] [place] [facility] [address] [id number] [place] [address] Aug, [facility] [place] [facility] [address] [id number] [place] [address] Aug, [facility] [place] [facility] [address] [id number] [place] [address] Jul, [facility] [place] [facility] [address] [id number] [place] [address] Jul, [facility] [place] [facility] [address] [id number] [place] [address] Jun, [facility] [place] [facility] [address] [id number] [place] [address] 28 Jun, 2011 [facility] [place] [facility] [address] [id number] [place] [address] 17 Jun, 2011 [facility] [place] [facility] [address] [id number] [place] [address] 15 Jun, 2011 [facility] [place] [facility] [address] [id number] [place] [address] 14 Jun, 2011 [facility] [place] [facility] [address] [id number] [place] [address] 14 Jun, 2011 [facility] [place] [facility] [address] [id number] [place] [address] Jun, [facility] [place] [facility] [address] [id number] [place] [address] Jun, [facility] [place] [facility] [address] [id number] [place] [address] Jun, [facility] [place] [facility] [address] [id number] [place] [address] Jun, [facility] [place] [facility] [address] [id number] [place] [address] May, [facility] [place] [facility] [address] [id number] [place] [address] May, [facility] [place] [facility] [address] [id number] [place] [address] May, [facility] [place] [facility] [address] [id number] [place] [address] 24 May, 2011 [facility] [place] [facility] [address] [id number] [place] [address] May, [facility] [place] [facility] [address] [id number] [place] [address] May, [facility] [place] [facility] [address] [id number], [place] [address] Feb, [facility] [place] [facility] [address] [id number], [place] [address] December, [facility] [place] [facility] [address] [id number] [place] [address] Jul, [facility] [place] [facility] [address] [id number] [place] [address] Jul, [facility] [place] [facility] [address] [id number] [place] [address] Jul, [facility] [place] [facility] [id number] [address] Jul, [facility] [id number] [address] Jun, [facility] [id number] [address] Jul, [facility] [id number] [address] Jul, [facility] [id number] [address] Jul, [facility] [id number] [place] [address] Jul, [facility] [id number] [address] Jul, [facility] [id number] [place] [address] Jul, [facility] [id number] [address] Jan, [facility] [id number] [address] 16 Sep, 2008 [facility] [id number] [address] Sep, IMMUNIZATIONS No Known Immunizations SOCIAL HISTORY Never Assessed REASON FOR VISIT followup Anxiety PLAN OF CARE Activity Details Follow Up 1 Week Reason: Follow-up VITAL SIGNS MEDICATIONS Unknown Medications RESULTS No Results PROCEDURES Procedure Date Ordered Result Body Site Psychotherapy, patient &/family, 30 minutes, established patient February 23, 2018 INSTRUCTIONS MEDICATIONS ADMINISTERED No Known Medications [...]
--- OUTSIDE RECORDS SUMMARY | 2019-01-22 20:53 | XMS REPORT ---
Author Author LETTY WILKINS Organization [facility] Address [address] [place] [address] Care Team Providers Care Chrome Worker Name Role Phone LETTY WILKINS Unavailable PROBLEMS Type Condition ICD9-CM Code VRU02-EL Code Onset Dates Condition Status SNOMED Code Problem Family history of diabetes mellitus Z83.3 Active 889616843 Problem Hot flashes N95.1 Active 560291356 Problem Excessive and frequent menstruation with irregular cycle N92.1 Active 869061663 Problem Diverticulitis K57.92 Active 113498502 Problem Gastroesophageal reflux disease with esophagitis K21.0 Active 318707329 Problem Mitral valve prolapse I34.1 Active 354297159 Problem Perimenopausal N95.1 Active 702707631691508 Problem Tachycardia R00.0 Active 6971122 Problem Abnormal uterine bleeding (AUB) N93.9 Active 30544683092738 Problem History of diverticulitis Z87.19 Active 018443945222231 Problem History of colon polyps Z86.010 Active 879169298 Problem Generalized anxiety disorder F41.1 Active 145966261 Problem Dense breast tissue R92.2 Active 111775302 Problem Hypertension I10 Active 91739508 Problem History of ovarian cyst Z87.42 Active 51379147 ALLERGIES No Information ENCOUNTERS Encounter Location Date Diagnosis [facility] [id number] [address] May, [facility] [address] [address] Apr, [facility] [address] [address] Apr, [facility] [address] [address] Mar, [facility] [address] [address] Mar, Diverticulitis K57.92 [facility] [address] [place] [address] Mar, Generalized anxiety disorder F41.1 and Bereavement Z63.4 [facility] [address] [place] [address] Mar, Hypertension I10 [facility] [id number] [place] [address] Mar, Generalized anxiety disorder F41.1 and Bereavement Z63.4 [facility] [id number] [place] [address] Feb, Generalized anxiety disorder F41.1 and Bereavement Z63.4 [facility] [id number] [place] [address] Feb, [facility] [id number] [place] [address] Feb, Generalized anxiety disorder F41.1 and Bereavement Z63.4 [facility] [id number] [place] [address] Feb, Generalized anxiety disorder F41.1 and Bereavement Z63.4 [facility] [address] [place] [address] Jan, Hypertension I10 and Acute non-recurrent maxillary sinusitis J01.00 [facility] [address] [address] December, [facility] [id number] [place] [address] December, Hypertension I10 [facility] [id number] [place] [address] December, Generalized anxiety disorder F41.1 [facility] [address] [id number] [address] 16 Oct, 2017 Encounter for dental examination Z01.20 [facility] [address] [id number], [place] [address] 06 Oct, 2017 Encounter for dental examination Z01.20 [facility] [address] [id number], [place] [address] 02 Oct, 2017 Dental examination Z01.20 [facility] [id number] [place] [address] Oct, Generalized anxiety disorder F41.1 [facility] [id number] [place] [address] Aug, Dental examination Z01.20 [facility] [id number] [place] [address] Aug, Generalized anxiety disorder F41.1 [facility] [id number] [place] [address] Aug, [facility] [id number] [place] [address] Aug, Encounter for dental examination Z01.20 [facility] [id number] [place] [address] Aug, Subacute maxillary sinusitis J01.00 [facility] [id number] [place] [address] Jul, Dental examination Z01.20 [facility] [id number] [place] [address] Jul, Generalized anxiety disorder F41.1 [facility] [id number] [place] [address] Jul, Diverticulitis K57.92 [facility] [id number] [place] [address] Jun, Encounter for immunization Z23 [facility] [address] [id number], [place] [address] Jun, Dental examination Z01.20 [facility] [id number] [place] [address] Jun, Generalized anxiety disorder F41.1 [facility] [address] [id number], [place] [address] Jun, Dental examination Z01.20 [facility] [id number] [place] [address] May, [facility] [id number] [place] [id number] May, Dental examination Z01.20 [facility] [id number] [place] [id number] May, Dental examination Z01.20 [facility] [address] [id number], [place] [address] May, Dental examination Z01.20 [facility] [id number] [place] [address] May, [facility] [id number] [place] [address] May, Generalized anxiety disorder F41.1 [facility] [id number] [place] [address] 05 May, 2017 Localized edema R60.0 ; Yeast vaginitis B37.3 and Gastroesophageal reflux disease with esophagitis K21.0 [facility] [address] [id number] [id number] Apr, Dental examination Z01.20 [facility] [address] [id number], [place] [address] Apr, Dental examination Z01.20 [facility] [address] [id number], [place] [address] 05 Apr, 2017 Dental examination Z01.20 [facility] [address] [id number], [place] [address] Mar, Dyspepsia R10.13 [facility] [id number] [address] Mar, Generalized anxiety disorder F41.1 [facility] [address] [id number], [place] [address] Mar, Encounter for dental examination Z01.20 [facility] [id number] [place] [id number] Mar, [facility] [id number] [place] [id number] Mar, Dental examination Z01.20 [facility] [id number] [address] Feb, Hypertension I10 and Tachycardia R00.0 [facility] [address] [id number], [place] [address] Feb, [facility] [id number] [place] [address] Feb, Generalized anxiety disorder F41.1 [facility] [address] [address] Feb, Dental examination Z01.20 [facility] [id number], [place] [address] Jan, Generalized anxiety disorder F41.1 [facility] [id number], [place] [address] December, Generalized anxiety disorder F41.1 [facility] [address] [id number] [address] December, Encounter for dental examination Z01.20 [facility] [id number] [address] Nov, [facility] [id number] [place] [address] Nov, [facility] [id number] [place] [address] Nov, Generalized anxiety disorder F41.1 [facility] [id number] [place] [address] 30 Oct, 2016 [facility] [id number] [place] [address] [id number] Oct, Dental examination Z01.20 [facility] [id number] [place] [address] Oct, Vaginal dryness N89.8 [id number] [place] [address] Oct, Pseudoseizures F44.5 [place] [id number] [place] [address] Oct, Generalized anxiety disorder F41.1 [facility] [id number] [place] [address] 28 Sep, 2016 Abnormal uterine bleeding (AUB) N93.9 ; Vaginal dryness N89.8 and Screening breast examination Z12.39 [facility] [id number] [place] [address] Sep, Dental examination Z01.20 [facility] [id number] [place] [address] Sep, Generalized anxiety disorder F41.1 [facility] [address] [place] [address] 06 Sep, 2016 Unspecified ovarian cyst, right side N83.201 ; Unspecified ovarian cyst, left side N83.202 ; Yeast infection of the vagina B37.3 ; Mitral valve prolapse I34.1 and Hypertension I10 [facility] [address] [place] [address] Aug, Generalized anxiety disorder F41.1 [facility] [id number] [place] [address] Jul, [facility] [address] [address] Jul, Generalized anxiety disorder F41.1 [facility] [id number] [place] [address] Jun, Generalized anxiety disorder F41.1 [facility] [address] [address] May, Encounter for immunization Z23 [facility] [address] [address] 17 May, 2016 Generalized anxiety disorder F41.1 and Depressive disorder, not elsewhere classified F32.9 [facility] [id number] [place] [address] 28 Apr, 2016 Hypertension I10 [facility] [address] [address] 22 Apr, 2016 Cervicalgia M54.2 [facility] [address] [address] 12 Apr, 2016 Cervicalgia M54.2 [facility] [id number] [place] [address] 09 Mar, 2016 Generalized anxiety disorder F41.1 and Depressive disorder, not elsewhere classified F32.9 [facility] [id number] [place] [id number] 14 Feb, 2016 Visit for dental examination Z01.20 [facility] [id number] [place] [address] 11 Feb, 2016 Pseudoseizures F44.5 ; Migraine without status migrainosus, not intractable, unspecified migraine type G43.909 and Essential hypertension I10 [facility] [id number] [place] [id number] 06 Feb, 2016 Dental examination Z01.20 [address] [place] [address] 05 Feb, 2016 Generalized anxiety disorder F41.1 and Depressive disorder, not elsewhere classified F32.9 [place] [id number] [place] [address] Jan, Tachycardia R00.0 [place] [id number] [place] [address] December, Eustachian tube dysfunction, bilateral H69.83 [place] [id number] [place] [address] December, Generalized anxiety disorder F41.1 and Depressive disorder, not elsewhere classified F32.9 [place] [id number] [place] [address] Nov, [place] [id number] [place] [address] Nov, [place] [place] [id number] [place] [address] Nov, Hypertension I10 ; Onychomycosis B35.1 ; [...] and Complex cyst of left ovary N83.29 [place] [address] [place] [address] 14 Nov, 2015 Sinusitis J32.9 [place] [id number] [place] [address] Oct, Complex cyst of left ovary N83.29 [place] [id number] [place] [address] Oct, Onychomycosis B35.1 [facility] [address] [id number] [id number] 17 Oct, 2015 Dental examination Z01.20 [facility] [address], [place] [address] 09 Oct, 2015 Well woman exam Z01.419 [...] R92.2 and History of colon polyps Z86.010 [place] [address] [place] [address] Oct, Generalized anxiety disorder F41.1 and Depressive disorder, not elsewhere classified F32.9 [place] [id number] [place] [address] Sep, Hypertension I10 and Onychomycosis B35.1 [place] [address] [place] [address] 16 Sep, 2015 Skin tags, multiple acquired L91.8 [place] [address] [place] [address] Aug, [place] [address] [place] [address] Aug, [place] [id number] [place] [address] Aug, [place] [id number] [place] [address] Aug, Generalized anxiety disorder F41.1 and Depressive disorder, not elsewhere classified F32.9 [place] [id number] [place] [address] Jul, Skin lesion L98.9 [facility] [address] [address] Jun, Generalized anxiety disorder F41.1 and Depressive disorder, not elsewhere classified F32.9 [facility] [address] [address] Jun, [address] [place] [address] [address] Jun, Generalized anxiety disorder F41.1 [address] [address] [address] May, Encounter for immunization Z23 and Right shoulder pain M25.511 [address] [address] [address] Apr, [address] [address] [address] Apr, Generalized anxiety disorder 300.02 and Depressive disorder, not elsewhere classified 311 [facility] [address] [id number] Mar, Dental examination V72.2 [place] [id number] [place] [address] Mar, Generalized anxiety disorder 300.02 and Depressive disorder, not elsewhere classified [address] [address] Mar, Depression, major, recurrent, 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.35 and 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 [place] [address] [address] Feb, Generalized anxiety disorder 300.02 and Depressive disorder, not elsewhere classified 311 [facility] [id number] [place] [id number] Feb, Dental examination V72.2 [place] [address], [place] [address] Jan, Generalized anxiety disorder 300.02 and Depressive disorder, not elsewhere classified 311 [facility] [address] [id number] [address] Jan, [facility] [address] [id number] [address] December, Generalized anxiety disorder 300.02 and Depressive disorder, not elsewhere classified 311 [facility] [address] [id number] [address] December, Major depressive disorder, recurrent, unspecified 296.30 and Panic disorder with agoraphobia 300.21 [facility] [address] [id number] [address] Nov, [facility] [id number] [place] [address] Nov, [facility] [address] [id number] [address] Oct, [facility] [address], [place] [address] Oct, [facility] [address], [place] [address] Oct, [facility] [address], [place] [address] Oct, [facility] [address], [place] [address] Sep, [facility] [address], [place] [address] Sep, [facility] [address], [place] [address] Sep, [facility] [address], [place] [address] Sep, [facility] [place] [facility] [address] [id number] [place] [address] Sep, 2014 [facility] [place] [facility] [address] [id number] [place] [address] Sep, 2014 [facility] [place] [facility] [address] [id number] [place] [address] Sep, 2014 [facility] [place] [facility] [address] [id number] [place] [address] Sep, 2014 [facility] [place] [facility] [address] [id number] [place] [address] Sep, 2014 [facility] [place] [facility] [address] [id number] [place] [address] Sep, 2014 [facility] [place] [facility] [address] [facility] [id number] [place] [address] Aug, [facility] [place] [facility] [address] [id number] [place] [address] Aug, [facility] [place] [facility] [address] [facility] [id number] [place] [address] Jul, [facility] [place] [facility] [address] [facility] [id number] [place] [address] Jul, [facility] [place] [facility] [address] [facility] [id number], [place] [address] 18 Jul, 2014 [facility] [place] [facility] [address] [id number], [place] [address] 18 Jul, 2014 [facility] [place] [facility] [address] [id number] [place] [address] Jul, [facility] [place] [facility] [address] [id number] [place] [address] Jul, [facility] [place] [facility] [address] [facility] [id number], [place] [address] 05 Jul, 2014 [facility] [place] [facility] [address] [id number], [place] [address] Jul, [facility] [place] [facility] [address] [id number] [place] [address] Jul, [facility] [place] [facility] [address] [id number] [place] [address] Jul, [facility] [place] [facility] [address] [id number] [place] [address] Jul, [facility] [place] [facility] [address] [id number] [place] [address] Jul, [facility] [place] [facility] [address] [id number] [place] [address] Jun, [facility] [place] [facility] [address] [id number] [place] [address] Jun, [facility] [place] [facility] [address] [id number] [place] [address] May, [facility] [place] [facility] [address] [id number] [place] [address] May, [facility] [place] [facility] [address] [facility] [id number] [place] [address] May, [facility] [place] [facility] [address] [facility] [id number] [place] [address] May, [facility] [place] [facility] [address] [id number], [place] [address] May, [facility] [place] [facility] [address] [id number], [place] [address] May, [facility] [place] [facility] [address] [id number], [place] [address] May, [facility] [place] [facility] [address] [facility] [id number], [place] [address] May, [facility] [place] [facility] [address] [facility] [id number], [place] [address] May, [facility] [place] [facility] [address] [id number] [place] [address] May, [facility] [place] [facility] [address] [id number] [place] [address] May, [facility] [place] [facility] [address] [id number] [place] [address] May, [facility] [place] [facility] [address] [id number] [place] [address] Apr, [facility] [place] [facility] [address] [id number] [place] [address] Apr, [facility] [place] [facility] [address] [id number] [place] [address] Apr, [facility] [place] [facility] [address] [id number] [place] [address] Apr, [facility] [place] [facility] [address] [id number] [place] [address] Apr, [facility] [place] [facility] [address] [id number] [place] [address] Apr, [facility] [place] [facility] [address] [id number] [place] [address] Feb, [facility] [place] [facility] [address] [id number] [place] [address] Feb, [facility] [place] [facility] [address] [id number] [place] [address] Feb, [facility] [place] [facility] [address] [id number] [place] [address] Feb, [facility] [place] [facility] [address] [id number] [place] [address] Feb, [facility] [place] [facility] [address] [id number] [place] [address] Feb, [facility] [place] [facility] [address] [id number] [place] [address] Jan, [facility] [place] [facility] [address] [id number] [place] [address] Jan, [facility] [place] [facility] [address] [id number] [place] [address] Jan, [facility] [place] [facility] [address] [id number] [place] [address] Jan, [facility] [place] [facility] [address] [id number] [place] [address] Jan, [facility] [place] [facility] [address] [id number] [place] [address] Jan, [facility] [place] [facility] [address] [id number] [place] [address] Jan, [facility] [place] [facility] [address] [id number] [place] [address] Jan, [facility] [place] [facility] [address] [id number] [place] [address] December, [facility] [place] [facility] [address] [id number] [place] [address] December, [facility] [place] [facility] [address] [id number] [place] [address] December, [facility] [place] [facility] [address] [id number] [place] [address] December, [facility] [place] [facility] [address] [id number] [address] Nov, [facility] [place] [facility] [address] [id number] [place] [address] Nov, [facility] [place] [facility] [address] [id number] [place] [address] Nov, [facility] [place] [facility] [address] [id number] [place] [address] Nov, [facility] [place] [facility] [address] [id number] [place] [address] Nov, [facility] [address] [id number] [place] [address] Nov, [facility] [place] [facility] [address] [id number] [place] [address] Nov, [facility] [place] [facility] [address] [id number] [place] [address] Nov, [facility] [place] [facility] [address] [id number] [place] [address] Oct, [facility] [place] [facility] [address] [id number] [place] [address] Oct, [facility] [place] [facility] [address] [id number] [place] [address] Sep, [facility] [place] [facility] [address] [id number] [place] [address] Sep, [facility] [address] [facility] [id number] [place] [id number] Sep, [facility] [place] [facility] [address] [id number] [place] [address] Sep, [facility] [place] [facility] [address] [id number] [place] [address] Sep, [facility] [place] [facility] [address] [id number] [place] [address] Sep, [facility] [place] [facility] [address] [id number] [place] [address] Aug, [facility] [place] [facility] [address] [id number] [place] [address] Aug, [facility] [place] [facility] [address] [id number] [place] [address] Aug, [facility] [place] [facility] [address] [id number] [place] [address] Aug, [facility] [place] [facility] [address] [id number] [place] [address] Jul, [facility] [place] [facility] [address] [id number] [place] [address] Jul, [facility] [place] [facility] [address] [id number] [place] [address] Jul, [facility] [place] [facility] [address] [id number] [place] [address] Jul, [facility] [place] [facility] [address] [id number] [place] [address] Jun, [facility] [place] [facility] [address] [id number] [place] [address] Jun, [facility] [place] [facility] [address] [id number] [place] [address] May, [facility] [place] [facility] [address] [id number] [place] [address] May, [facility] [place] [facility] [address] [id number] [place] [address] May, [facility] [place] [facility] [address] [id number], [place] [address] May, [facility] [place] [facility] [address] [id number], [place] [address] May, [facility] [place] [facility] [address] [id number], [place] [address] 17 Apr, 2013 [facility] [place] [facility] [address] [id number] [place] [address] Apr, [facility] [place] [facility] [address] [id number], [place] [address] Mar, [facility] [place] [facility] [address] [id number], [place] [address] Mar, [facility] [place] [facility] [address] [id number], [place] [address] Mar, [facility] [address] [id number] [place] [address] Mar, [facility] [place] [facility] [address] [id number] [place] [address] Feb, [facility] [place] [facility] [address] [id number] [place] [address] Feb, [facility] [place] [facility] [address] [id number] [place] [address] Feb, [facility] [place] [facility] [address] [id number] [place] [address] Feb, [facility] [place] [facility] [address] [id number] [place] [address] Feb, [facility] [address] [id number] [place] [address] Jan, [facility] [place] [facility] [address] [id number] [place] [address] Jan, [facility] [place] [facility] [address] [id number] [place] [address] Jan, [facility] [place] [facility] [address] [id number] [place] [address] Jan, [facility] [place] [facility] [address] [id number] [place] [address] Jan, [facility] [place] [facility] [address] [id number] [place] [address] December, [facility] [place] [facility] [address] [id number] [place] [address] December, [facility] [place] [facility] [address] [id number] [place] [address] Nov, [facility] [place] [facility] [address] [id number] [place] [address] Nov, [facility] [place] [facility] [address] [id number] [place] [address] 19 Oct, 2012 [facility] [address] [id number] [place] [address] 13 Oct, 2012 [facility] [place] [facility] [address] [id number] [place] [address] 05 Oct, 2012 [facility] [address] [id number] [place] [address] 14 Sep, 2012 [facility] [place] [facility] [address] [id number] [place] [address] 24 Aug, 2012 [facility] [place] [facility] [address] [id number] [place] [address] 16 Aug, 2012 [facility] [place] [facility] [address] [id number] [place] [address] 15 Aug, 2012 [facility] [address] [id number] [place] [address] Aug, [facility] [address] [id number] [place] [address] Jul, [facility] [address] [id number] [place] [address] Jul, [facility] [address] [id number] [place] [address] Jul, [facility] [place] [facility] [address] [id number] [place] [address] Jul, [facility] [place] [facility] [address] [id number] [place] [address] Jul, [facility] [place] [facility] [address] [id number] [place] [address] Jul, [facility] [place] [facility] [address] [id number] [place] [address] Jul, [facility] [place] [facility] [address] [id number] [place] [address] Jul, [facility] [place] [facility] [address] [id number] [place] [address] Jun, [facility] [place] [facility] [address] [id number] [place] [address] Jun, [facility] [place] [facility] [address] [facility] [id number] [place] [address] Jun, [facility] [place] [facility] [address] [id number] [place] [address] Jun, [facility] [place] [facility] [address] [id number] [place] [address] Jun, [facility] [place] [facility] [address] [id number] [place] [address], [place] [address] Jun, [facility] [place] [facility] [address] [facility] [id number] [place] [address] May, [facility] [place] [facility] [address] [id number], [place] [address] May, [facility] [place] [facility] [address] [facility] [id number] [place] [address] May, [facility] [place] [facility] [address] [facility] [id number], [place] [address] May, [facility] [place] [facility] [address] [facility] [id number], [place] [address] Apr, [facility] [place] [facility] [address] [id number], [place] [address] Apr, [facility] [place] [facility] [address] [id number] [place] [address] Mar, [facility] [place] [facility] [address] [facility] [id number], [place] [address] Jan, [facility] [place] [facility] [address] [facility] [id number], [place] [address] Jan, [facility] [place] [facility] [address] [id number] [place] [address] 16 Jan, 2012 [facility] [address] [id number] [place] [address] 15 Jan, 2012 [facility] [place] [facility] [address] [id number] [place] [address] 14 Jan, 2012 [facility] [address] [id number] [place] [address] 14 Jan, 2012 [facility] [place] [facility] [address] [id number] [place] [address] 07 Jan, 2012 [facility] [address] [id number] [place] [address] December, [facility] [place] [facility] [address] [id number] [place] [address] December, [facility] [address] [id number] [place] [address] December, [facility] [address] [id number] [place] [address] December, [facility] [place] [facility] [address] [id number] [place] [address] Nov, [facility] [place] [facility] [address] [facility] [id number] [place] [address] Nov, [facility] [place] [facility] [address] [id number] [place] [address] 29 Oct, 2011 [facility] [place] [facility] [address] [id number] [place] [address] 28 Oct, 2011 [facility] [place] [facility] [address] [id number] [place] [address] 15 Oct, 2011 [facility] [place] [facility] [address] [id number] [place] [address] Sep, [facility] [place] [facility] [address] [id number] [place] [address] Sep, [facility] [place] [facility] [address] [id number] [place] [address] Sep, [facility] [place] [facility] [address] [id number] [place] [address] Aug, [facility] [place] [facility] [address] [id number] [place] [address] Aug, [facility] [place] [facility] [address] [id number] [place] [address] Aug, [facility] [place] [facility] [address] [id number] [place] [address] Aug, [facility] [place] [facility] [address] [id number] [place] [address] Aug, [facility] [place] [facility] [address] [id number] [place] [address] Aug, [facility] [place] [facility] [address] [id number] [place] [address] Aug, [facility] [place] [facility] [address] [id number] [place] [address] Jul, [facility] [place] [facility] [address] [id number] [place] [address] Jul, [facility] [place] [facility] [address] [id number] [place] [address] Jun, [facility] [place] [facility] [address] [id number], [place] [address] 28 Jun, 2011 [facility] [place] [facility] [address] [id number] [place] [address] 17 Jun, 2011 [facility] [place] [facility] [address] [id number] [place] [address] 15 Jun, 2011 [facility] [place] [facility] [address] [id number], [place] [address] 14 Jun, 2011 [facility] [place] [facility] [address] [id number], [place] [address] 14 Jun, 2011 [facility] [place] [facility] [address] [id number] [place] [address] Jun, [facility] [place] [facility] [address] [id number] [place] [address] Jun, [facility] [place] [facility] [address] [id number] [place] [address] Jun, [facility] [place] [facility] [address] [id number] [place] [address] Jun, [facility] [place] [facility] [address] [id number] [place] [address] May, [facility] [place] [facility] [address] [id number] [place] [address] May, [facility] [place] [facility] [address] [facility] [id number] [place] [address] May, [facility] [place] [facility] [address] [id number] [place] [address] 24 May, 2011 [facility] [place] [facility] [address] [facility] [id number] [place] [address] May, [facility] [place] [facility] [address] [facility] [id number] [place] [address] May, [facility] [place] [facility] [address] [id number] [place] [address] Feb, [facility] [place] [facility] [address] [id number] [place] [address] December, [facility] [place] [facility] [address] [id number] [place] [address] Jul, [facility] [place] [facility] [address] [id number] [place] [address] Jul, [facility] [place] [facility] [address] [facility] [id number] [place] [address] Jul, [facility] [place] [facility] [id number], [place] [address] Jul, [facility] [id number], [place] [address] Jun, [facility] [id number], [place] [address] Jul, [facility] [id number], [place] [address] Jul, [facility] [id number], [place] [address] Jul, [facility] [id number] [place] [address] Jul, [facility] [id number], [place] [address] Jul, [facility] [id number] [place] [address] Jul, [facility] [id number], [place] [address] Jan, [facility] [address], [place] [address] 16 Sep, 2008 [facility] [address], [place] [address] Sep, IMMUNIZATIONS No Known Immunizations SOCIAL HISTORY Never Assessed REASON FOR VISIT Controlled Med Refill/PRN PLAN OF CARE VITAL SIGNS MEDICATIONS Medication Instructions Dosage Frequency Start Date End Date Duration Status Clorazepate Dipotassium 7.5 MG Orally 4 times a day 1 tablet as needed 6h 30 days Active RESULTS No Results PROCEDURES [...]
--- OUTSIDE RECORDS SUMMARY | 2019-01-22 20:54 | XMS REPORT ---
Author Author KVNG MERCHANT Organization [facility] Address [address] [place] [address] Care Team Providers Care Golf Superintendent Name Role Phone KVNG MERCHANT Unavailable PROBLEMS Type Condition ICD9-CM Code FXY87-RD Code Onset Dates Condition Status SNOMED Code Problem Family history of diabetes mellitus Z83.3 Active 028675893 Problem Hot flashes N95.1 Active 108696278 Problem Excessive and frequent menstruation with irregular cycle N92.1 Active 136461230 Problem Diverticulitis K57.92 Active 436509809 Problem Gastroesophageal reflux disease with esophagitis K21.0 Active 966992079 Problem Mitral valve prolapse I34.1 Active 715960240 Problem Perimenopausal N95.1 Active 196938916755187 Problem Tachycardia R00.0 Active 2783133 Problem Abnormal uterine bleeding (AUB) N93.9 Active 54976942031862 Problem History of diverticulitis Z87.19 Active 131867316459300 Problem History of colon polyps Z86.010 Active 643773814 Problem Generalized anxiety disorder F41.1 Active 022508727 Problem Dense breast tissue R92.2 Active 683682209 Problem Hypertension I10 Active 53001834 Problem History of ovarian cyst Z87.42 Active 81766284 ALLERGIES No Information ENCOUNTERS Encounter Location Date Diagnosis [facility] [address] [facility] [id number], [place] [address] May, [facility] [address] [facility] [id number], [place] [address] Apr, [facility] [address], [place] [address] Apr, [facility] [address] [id number], [place] [address] Mar, [facility] [id number] [place] [address] Mar, Diverticulitis K57.92 [facility] [id number] [place] [address] Mar, Generalized anxiety disorder F41.1 and Bereavement Z63.4 [facility] [id number] [place] [address] Mar, Hypertension I10 [facility] [id number] [place] [address] Mar, Generalized anxiety disorder F41.1 and Bereavement Z63.4 [facility] [id number] [place] [address] Feb, Generalized anxiety disorder F41.1 and Bereavement Z63.4 [facility] [id number] [place] [address] Feb, [facility] [id number] [place] [address] Feb, Generalized anxiety disorder F41.1 and Bereavement Z63.4 [facility] [id number] [place] [address] Feb, Generalized anxiety disorder F41.1 and Bereavement Z63.4 [facility] [address] [place] [address] Jan, Hypertension I10 and Acute non-recurrent maxillary sinusitis J01.00 [facility] [address] [place] [address] December, [facility] [id number] [place] [address] December, Hypertension I10 [facility] [address] [place] [address] December, Generalized anxiety disorder F41.1 [facility] [address] [place] [id number] [place] [address] 16 Oct, 2017 Encounter for dental examination Z01.20 [facility] [address] [id number], [place] [address] 06 Oct, 2017 Encounter for dental examination Z01.20 [facility] [address] [id number], [place] [address] Oct, Dental examination Z01.20 [facility] [id number] [place] [address] Oct, Generalized anxiety disorder F41.1 [facility] [id number] [place] [address] Aug, Dental examination Z01.20 [facility] [id number] [place] [address] Aug, Generalized anxiety disorder F41.1 [facility] [id number] [place] [address] Aug, [facility] [address] [id number], [place] [address] Aug, Encounter for dental examination Z01.20 [facility] [id number] [place] [address] Aug, Subacute maxillary sinusitis J01.00 [facility] [address] [id number], [place] [address] Jul, Dental examination Z01.20 [facility] [id number] [place] [address] Jul, Generalized anxiety disorder F41.1 [facility] [id number] [place] [address] Jul, Diverticulitis K57.92 [facility] [id number] [place] [address] Jun, Encounter for immunization Z23 [facility] [address] [id number], [place] [address] Jun, Dental examination Z01.20 [facility] [id number] [place] [address] 14 Jun, 2017 Generalized anxiety disorder F41.1 [facility] [address] [id number], [place] [address] 07 Jun, 2017 Dental examination Z01.20 [facility] [id number] [place] [address] May, [facility] [id number] [place] [id number] May, Dental examination Z01.20 [facility] [id number] [place] [id number] May, Dental examination Z01.20 [facility] [id number] [place] [address] May, Dental examination Z01.20 [facility] [id number] [place] [address] May, [facility] [id number] [place] [address] May, Generalized anxiety disorder F41.1 [facility] [id number] [place] [address] 05 May, 2017 Localized edema R60.0 ; Yeast vaginitis B37.3 and Gastroesophageal reflux disease with esophagitis K21.0 [facility] [address] [id number] [id number] Apr, Dental examination Z01.20 [facility] [address] [id number], [place] [address] Apr, Dental examination Z01.20 [facility] [address] [id number], [place] [address] 05 Apr, 2017 Dental examination Z01.20 [facility] [address] [id number], [place] [address] Mar, Dyspepsia R10.13 [facility] [id number] [place] [address] Mar, Generalized anxiety disorder F41.1 [facility] [address] [id number], [place] [address] Mar, Encounter for dental examination Z01.20 [facility] [id number] [place] [id number] Mar, [facility] [id number] [place] [id number] Mar, Dental examination Z01.20 [facility] [id number] [place] [address] Feb, Hypertension I10 and Tachycardia R00.0 [facility] [address] [id number], [place] [address] Feb, [facility] [id number] [place] [address] Feb, Generalized anxiety disorder F41.1 [facility] [address] [place] [id number] Feb, Dental examination Z01.20 [facility] [address] [id number], [place] [address] Jan, Generalized anxiety disorder F41.1 [facility] [address] [id number], [place] [address] December, Generalized anxiety disorder F41.1 [facility] [id number] [place] [address] [id number] December, Encounter for dental examination Z01.20 [facility] [address] [id number], [place] [address] Nov, [facility] [id number] [place] [address] Nov, [facility] [id number] [place] [address] Nov, Generalized anxiety disorder F41.1 [facility] [id number] [place] [address] Oct, [facility] [id number] [place] [id number] Oct, Dental examination Z01.20 [place] [id number] [place] [address] Oct, Vaginal dryness N89.8 [place] [facility] [id number] [place] [address] Oct, Pseudoseizures F44.5 [facility] [facility] [id number] [place] [address] Oct, Generalized anxiety disorder F41.1 [facility] [facility] [id number] [place] [address] Sep, Abnormal uterine bleeding (AUB) N93.9 ; Vaginal dryness N89.8 and Screening breast examination Z12.39 [facility] [facility] [id number] [place] [address] Sep, Dental examination Z01.20 [facility] [facility] [id number] [place] [address] Sep, Generalized anxiety disorder F41.1 [place] [id number] [place] [address] 06 Sep, 2016 Unspecified ovarian cyst, right side N83.201 ; Unspecified ovarian cyst, left side N83.202 ; Yeast infection of the vagina B37.3 ; Mitral valve prolapse I34.1 and Hypertension I10 [place] [id number] [place] [address] Aug, Generalized anxiety disorder F41.1 [place] [id number] [place] [address] Jul, [facility] [id number] [place] [address] Jul, Generalized anxiety disorder F41.1 [facility] [id number] [place] [address] Jun, Generalized anxiety disorder F41.1 [facility] [id number] [place] [address] May, Encounter for immunization Z23 [facility] [id number] [place] [address] 17 May, 2016 Generalized anxiety disorder F41.1 and Depressive disorder, not elsewhere classified F32.9 [facility] [id number] [place] [address] 28 Apr, 2016 Hypertension I10 [facility] [address] [address] Apr, Cervicalgia M54.2 [facility] [id number] [place] [address] 12 Apr, 2016 Cervicalgia M54.2 [facility] [id number] [place] [address] 09 Mar, 2016 Generalized anxiety disorder F41.1 and Depressive disorder, not elsewhere classified F32.9 [facility] [id number] [place] [address] [id number] 14 Feb, 2016 Visit for dental examination Z01.20 [facility] [id number] [place] [address] 11 Feb, 2016 Pseudoseizures F44.5 ; Migraine without status migrainosus, not intractable, unspecified migraine type G43.909 and Essential hypertension I10 [facility] [id number] [place] [address] [id number] 06 Feb, 2016 Dental examination Z01.20 [facility] [address] [place] [address] Feb, Generalized anxiety disorder F41.1 and Depressive disorder, not elsewhere classified F32.9 [place] [id number] [place] [address] Jan, Tachycardia R00.0 [place] [id number] [place] [address] December, Eustachian tube dysfunction, bilateral H69.83 [place] [id number] [place] [address] December, Generalized anxiety disorder F41.1 and Depressive disorder, not elsewhere classified F32.9 [place] [id number] [place] [address] Nov, [place] [id number] [place] [address] Nov, [place] [id number] [place] [address] Nov, Hypertension I10 ; Onychomycosis B35.1 ; [...] and Complex cyst of left ovary N83.29 [place] [address] [place] [address] 14 Nov, 2015 Sinusitis J32.9 [place] [id number] [place] [address] Oct, Complex cyst of left ovary N83.29 [facility] [facility] [id number] [place] [address] Oct, Onychomycosis B35.1 [facility] [address] [id number] [id number] 17 Oct, 2015 Dental examination Z01.20 [place] [id number] [place] [address] Oct, Well woman exam Z01.419 ; Encounter [...] R92.2 and History of colon polyps Z86.010 [place] [id number] [place] [address] Oct, Generalized anxiety disorder F41.1 and Depressive disorder, not elsewhere classified F32.9 [place] [id number] [place] [address] Sep, Hypertension I10 and Onychomycosis B35.1 [place] [id number] [place] [address] 16 Sep, 2015 Skin tags, multiple acquired L91.8 [place] [id number] [place] [address] Aug, [place] [id number] [place] [address] Aug, [place] [id number] [place] [address] Aug, [place] [id number] [place] [address] Aug, Generalized anxiety disorder F41.1 and Depressive disorder, not elsewhere classified F32.9 [place] [address] [address] Jul, Skin lesion L98.9 [facility] [id number] [place] [address] Jun, Generalized anxiety disorder F41.1 and Depressive disorder, not elsewhere classified F32.9 [facility] [id number] [place] [address] Jun, [facility] [address] [address] Jun, Generalized anxiety disorder F41.1 [place] [address] [address] May, Encounter for immunization Z23 and Right shoulder pain M25.511 [place] [id number] [place] [address] Apr, [facility] [address] [address] Apr, Generalized anxiety disorder 300.02 and Depressive disorder, not elsewhere classified 311 [facility] [id number] [place] [address] [id number] Mar, Dental examination V72.2 [place] [id number] [place] [address] Mar, Generalized anxiety disorder 300.02 and Depressive disorder, not elsewhere classified 311 [facility] [id number] [place] [address] Mar, Depression, major, recurrent, 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.35 and 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 [facility] [address] [address] Feb, Generalized anxiety disorder 300.02 and Depressive disorder, not elsewhere classified 311 [facility] [id number] [place] [address] [id number] Feb, Dental examination V72.2 [facility] [address] [place] [address] Jan, Generalized anxiety disorder 300.02 and Depressive disorder, not elsewhere classified 311 [facility] [address] [id number], [place] [address] Jan, [facility] [address], [place] [address] December, Generalized anxiety disorder 300.02 and Depressive disorder, not elsewhere classified 311 [facility] [id number] [place] [address] December, Major depressive disorder, recurrent, unspecified 296.30 and Panic disorder with agoraphobia 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 [facility] [id number] [place] [address] Nov, [facility] [address], [place] [address] Nov, [facility] [address], [place] [address] Oct, [facility] [address], [place] [address] Oct, [facility] [address], [place] [address] Oct, [facility] [address], [place] [address] Oct, [facility] [address], [place] [address] Sep, [facility] [address], [place] [address] Sep, [facility] [address], [place] [address] Sep, [facility] [address], [place] [address] Sep, [facility] [address] [place] [address] 17 Sep, 2014 [facility] [place] [facility] [address] [id number] [place] [address] Sep, 2014 [facility] [place] [facility] [address] [id number] [place] [address] Sep, 2014 [facility] [place] [facility] [address] [id number] [place] [address] Sep, 2014 [facility] [place] [facility] [address] [id number] [place] [address] Sep, 2014 [facility] [place] [facility] [address] [id number] [place] [address] Sep, 2014 [facility] [place] [facility] [address] [facility] [id number] [place] [address] Aug, [facility] [place] [facility] [address] [facility] [id number] [place] [address] Aug, [facility] [place] [facility] [address] [id number] [place] [address] 19 Jul, 2014 [facility] [place] [facility] [address] [facility] [id number] [place] [address] 19 Jul, 2014 [facility] [place] [facility] [address] [facility] [id number] [place] [address] 18 Jul, 2014 [facility] [place] [facility] [address] [facility] [id number] [place] [address] 18 Jul, 2014 [facility] [place] [facility] [address] [id number] [place] [address] 11 Jul, 2014 [facility] [place] [facility] [address] [id number] [place] [address] 11 Jul, 2014 [facility] [place] [facility] [address] [facility] [id number] [place] [address] 05 Jul, 2014 [facility] [place] [facility] [address] [id number] [place] [address] Jul, [facility] [place] [facility] [address] [id number] [place] [address] Jul, [facility] [place] [facility] [address] [id number] [place] [address] Jul, [facility] [place] [facility] [address] [id number] [place] [address] Jul, [facility] [place] [facility] [address] [id number] [place] [address] Jul, [facility] [place] [facility] [address] [id number] [place] [address] Jun, [facility] [place] [facility] [address] [id number] [place] [address] Jun, [facility] [place] [facility] [address] [id number] [place] [address] May, [facility] [place] [facility] [address] [id number], [place] [address] May, [facility] [place] [facility] [address] [id number], [place] [address] May, [facility] [place] [facility] [address] [id number], [place] [address] May, [facility] [place] [facility] [address] [id number], [place] [address] May, [facility] [place] [facility] [address] [id number], [place] [address] May, [facility] [place] [facility] [address] [id number], [place] [address] May, [facility] [place] [facility] [address] [id number], [place] [address] May, [facility] [place] [facility] [address] [id number], [place] [address] May, [facility] [place] [facility] [address] [id number] [place] [address] May, [facility] [place] [facility] [address] [id number] [place] [address] May, [facility] [place] [facility] [address] [id number] [place] [address] May, [facility] [place] [facility] [address] [id number] [place] [address] Apr, [facility] [place] [facility] [address] [id number] [place] [address] 30 Apr, 2014 [facility] [place] [facility] [address] [id number] [place] [address] Apr, [facility] [place] [facility] [address] [id number] [place] [address] Apr, [facility] [place] [facility] [address] [id number] [place] [address] Apr, [facility] [place] [facility] [address] [id number] [place] [address] Apr, [facility] [place] [facility] [address] [id number] [place] [address] Feb, [facility] [place] [facility] [address] [id number] [place] [address] Feb, [facility] [place] [facility] [address] [id number] [place] [address] Feb, [facility] [place] [facility] [address] [id number] [place] [address] Feb, [facility] [place] [facility] [address] [id number] [place] [address] Feb, [facility] [place] [facility] [address] [id number] [place] [address] Feb, [facility] [place] [facility] [address] [id number] [place] [address] Jan, [facility] [place] [facility] [address] [id number] [place] [address] Jan, [facility] [place] [facility] [address] [id number] [place] [address] Jan, [facility] [place] [facility] [address] [id number] [place] [address] Jan, [facility] [place] [facility] [address] [id number] [place] [address] Jan, [facility] [place] [facility] [address] [id number] [place] [address] Jan, [facility] [place] [facility] [address] [id number] [place] [address] Jan, [facility] [place] [facility] [address] [id number] [place] [address] Jan, [facility] [place] [facility] [address] [id number] [place] [address] December, [facility] [place] [facility] [address] [id number] [place] [address] December, [facility] [place] [facility] [address] [id number] [place] [address] December, [facility] [place] [facility] [address] [id number] [place] [address] December, [facility] [place] [facility] [address] [id number] [place] [address] Nov, [facility] [place] [facility] [address] [id number] [place] [address] Nov, [facility] [place] [facility] [address] [id number] [place] [address] Nov, [facility] [place] [facility] [address] [id number] [place] [address] Nov, [facility] [place] [facility] [address] [id number] [place] [address] Nov, [facility] [address] [id number] [place] [address] Nov, [facility] [place] [facility] [address] [id number] [place] [address] Nov, [facility] [place] [facility] [address] [id number] [place] [address] Nov, [facility] [place] [facility] [address] [id number] [place] [address] Oct, [facility] [place] [facility] [address] [id number] [place] [address] Oct, [facility] [place] [facility] [address] [id number] [place] [address] Sep, [facility] [address] [id number] [place] [address] Sep, [facility] [place] [facility] [address] [facility] [id number] [place] [id number] Sep, [facility] [place] [facility] [address] [id number] [place] [address] Sep, [facility] [place] [facility] [address] [id number] [place] [address] Sep, [facility] [place] [facility] [address] [id number] [place] [address] Sep, [facility] [place] [facility] [address] [id number], [place] [address] Aug, [facility] [place] [facility] [address] [id number] [place] [address] Aug, [facility] [place] [facility] [address] [id number] [place] [address] Aug, [facility] [place] [facility] [address] [id number], [place] [address] Aug, [facility] [place] [facility] [address] [id number] [place] [address] Jul, [facility] [place] [facility] [address] [id number] [place] [address] Jul, [facility] [place] [facility] [address] [id number] [place] [address] Jul, [facility] [place] [facility] [address] [id number] [place] [address] Jul, [facility] [place] [facility] [address] [id number] [place] [address] Jun, [facility] [place] [facility] [address] [id number] [place] [address] Jun, [facility] [place] [facility] [address] [id number] [place] [address] May, [facility] [place] [facility] [address] [id number] [place] [address] May, [facility] [place] [facility] [address] [id number] [place] [address] May, [facility] [place] [facility] [address] [id number] [place] [address] May, [facility] [place] [facility] [address] [id number] [place] [address] May, [facility] [place] [facility] [address] [id number] [place] [address] 17 Apr, 2013 [facility] [place] [facility] [address] [id number] [place] [address] 10 Apr, 2013 [facility] [place] [facility] [address] [id number] [place] [address] 29 Mar, 2013 [facility] [place] [facility] [address] [id number] [place] [address] Mar, [facility] [place] [facility] [address] [id number] [place] [address] Mar, [facility] [address] [id number] [place] [address] Mar, [facility] [place] [facility] [address] [id number] [place] [address] Feb, [facility] [place] [facility] [address] [id number] [place] [address] Feb, [facility] [place] [facility] [address] [id number] [place] [address] Feb, [facility] [place] [facility] [address] [id number] [place] [address] Feb, [facility] [place] [facility] [address] [id number] [place] [address] Feb, [facility] [place] [facility] [address] [id number] [place] [address] Jan, [facility] [place] [facility] [address] [id number] [place] [address] Jan, [facility] [place] [facility] [address] [id number] [place] [address] Jan, [facility] [place] [facility] [address] [id number] [place] [address] Jan, [facility] [place] [facility] [address] [id number], [place] [address] Jan, [facility] [place] [facility] [address] [id number], [place] [address] December, [facility] [place] [facility] [address] [id number] [place] [address] December, [facility] [place] [facility] [address] [id number] [place] [address] Nov, [facility] [place] [facility] [address] [id number] [place] [address] Nov, [facility] [place] [facility] [address] [id number] [place] [address] 19 Oct, 2012 [facility] [address] [id number] [place] [address] 13 Oct, 2012 [facility] [address] [id number] [place] [address] 05 Oct, 2012 [facility] [address] [id number] [place] [address] 14 Sep, 2012 [facility] [address] [id number] [place] [address] 24 Aug, 2012 [facility] [address] [id number] [place] [address] 16 Aug, 2012 [facility] [address] [id number] [place] [address] 15 Aug, 2012 [facility] [address] [id number] [place] [address] Aug, [facility] [address] [id number] [place] [address] Jul, [facility] [address] [id number] [place] [address] Jul, [facility] [address] [facility] [id number] [place] [address] Jul, [facility] [address] [id number] [place] [address] Jul, [facility] [address] [id number] [place] [address] Jul, [facility] [address] [id number] [place] [address] Jul, [facility] [address] [id number] [place] [address] Jul, [facility] [address] [id number] [place] [address] Jul, [facility] [place] [facility] [address] [id number] [place] [address] Jun, [facility] [place] [facility] [address] [id number] [place] [address] Jun, [facility] [place] [facility] [address] [id number] [place] [address] Jun, [facility] [place] [facility] [address] [id number] [place] [address] Jun, [facility] [place] [facility] [address] [id number] [place] [address] Jun, [facility] [place] [facility] [address] [id number] [place] [address] Jun, [facility] [place] [facility] [address] [facility] [id number] [place] [address] May, [facility] [place] [facility] [address] [id number] [place] [address] May, [facility] [place] [facility] [address] [id number] [place] [address] May, [facility] [place] [facility] [address] [id number] [place] [address] May, [facility] [place] [facility] [address] [facility] [id number] [place] [address] Apr, [facility] [place] [facility] [address] [id number], [place] [address] Apr, [facility] [place] [facility] [address] [id number] [place] [address] Mar, [facility] [place] [facility] [address] [id number] [place] [address] Jan, [facility] [place] [facility] [address] [id number] [place] [address] Jan, [facility] [place] [facility] [address] [id number], [place] [address] 16 Jan, 2012 [facility] [address] [id number] [place] [address] 15 Jan, 2012 [facility] [place] [facility] [address] [id number] [place] [address] Jan, [facility] [place] [facility] [address] [id number] [place] [address] Jan, [facility] [place] [facility] [address] [id number] [place] [address] 07 Jan, 2012 [facility] [place] [facility] [address] [id number] [place] [address] December, [facility] [place] [facility] [address] [id number] [place] [address] December, [facility] [address] [facility] [id number] [place] [address] December, [facility] [place] [facility] [address] [facility] [id number] [place] [address] December, [facility] [place] [facility] [address] [id number] [place] [address] Nov, [facility] [place] [facility] [address] [facility] [id number] [place] [address] Nov, [facility] [place] [facility] [address] [id number] [place] [address] Oct, [facility] [place] [facility] [address] [id number] [place] [address] Oct, [facility] [place] [facility] [address] [id number] [place] [address] Oct, [facility] [place] [facility] [address] [id number] [place] [address] Sep, [facility] [place] [facility] [address] [facility] [id number] [place] [address] Sep, [facility] [place] [facility] [address] [id number] [place] [address] Sep, [facility] [place] [facility] [address] [id number] [place] [address] Aug, [facility] [place] [facility] [address] [id number] [place] [address] Aug, [facility] [place] [facility] [address] [id number] [place] [address] Aug, [facility] [place] [facility] [address] [id number] [place] [address] Aug, [facility] [place] [facility] [address] [id number] [place] [address] Aug, [facility] [place] [facility] [address] [id number] [place] [address] Aug, [facility] [place] [facility] [address] [id number] [place] [address] Aug, [facility] [place] [facility] [address] [id number] [place] [address] Jul, [facility] [place] [facility] [address] [id number] [place] [address] Jul, [facility] [place] [facility] [address] [id number] [place] [address] Jun, [facility] [place] [facility] [address] [id number] [place] [address] 28 Jun, 2011 [facility] [place] [facility] [address] [id number] [place] [address] 17 Jun, 2011 [facility] [place] [facility] [address] [id number] [place] [address] 15 Jun, 2011 [facility] [place] [facility] [address] [id number] [place] [address] 14 Jun, 2011 [facility] [place] [facility] [address] [id number] [place] [address] 14 Jun, 2011 [facility] [place] [facility] [address] [id number] [place] [address] Jun, [facility] [place] [facility] [address] [id number] [place] [address] Jun, [facility] [place] [facility] [address] [id number] [place] [address] Jun, [facility] [place] [facility] [address] [id number] [place] [address] Jun, [facility] [place] [facility] [address] [id number] [place] [address] May, [facility] [place] [facility] [address] [id number] [place] [address] May, [facility] [place] [facility] [address] [id number] [place] [address] May, [facility] [place] [facility] [address] [id number] [place] [address] 24 May, 2011 [facility] [place] [facility] [address] [id number] [place] [address] May, [facility] [place] [facility] [address] [id number] [place] [address] May, [facility] [place] [facility] [address] [id number], [place] [address] Feb, [facility] [place] [facility] [address] [id number], [place] [address] December, [facility] [place] [facility] [address] [id number] [place] [address] Jul, [facility] [place] [facility] [address] [id number] [place] [address] Jul, [facility] [place] [facility] [address] [id number] [place] [address] Jul, [facility] [place] [facility] [id number], [place] [address] Jul, [facility] [id number], [place] [address] Jun, [facility] [id number], [place] [address] Jul, [facility] [id number], [place] [address] Jul, [facility] [id number], [place] [address] Jul, [facility] [id number] [place] [address] Jul, [facility] [id number], [place] [address] Jul, [facility] [id number] [place] [address] Jul, [facility] [id number], [place] [address] Jan, [facility] [id number], [place] [address] 16 Sep, 2008 [facility] [id number], [place] [address] Sep, IMMUNIZATIONS No Known Immunizations SOCIAL HISTORY Never Assessed REASON FOR VISIT followup Anxiety PLAN OF CARE Activity Details Follow Up 2 Weeks Reason: Follow-up VITAL SIGNS MEDICATIONS Unknown Medications RESULTS No Results PROCEDURES Procedure Date Ordered Result Body Site Psychotherapy, patient &/family, 30 minutes, established patient March 02, 2018 INSTRUCTIONS MEDICATIONS ADMINISTERED No Known Medications [...]
--- OUTSIDE RECORDS SUMMARY | 2019-01-22 20:55 | XMS REPORT ---
Author Author LETTY WILKINS Organization [facility] Address [address] [place] [address] Care Team Providers Care Postdoctoral Fellow Name Role Phone LETTY WILKINS Unavailable PROBLEMS Type Condition ICD9-CM Code DOZ31-WX Code Onset Dates Condition Status SNOMED Code Problem Family history of diabetes mellitus Z83.3 Active 912918939 Problem Hot flashes N95.1 Active 752007137 Problem Excessive and frequent menstruation with irregular cycle N92.1 Active 017979079 Problem Diverticulitis K57.92 Active 059964123 Problem Gastroesophageal reflux disease with esophagitis K21.0 Active 400996286 Problem Mitral valve prolapse I34.1 Active 891456201 Problem Perimenopausal N95.1 Active 794310683690457 Problem Tachycardia R00.0 Active 5754036 Problem Abnormal uterine bleeding (AUB) N93.9 Active 24870088204589 Problem History of diverticulitis Z87.19 Active 950680127981088 Problem History of colon polyps Z86.010 Active 253828489 Problem Generalized anxiety disorder F41.1 Active 425357641 Problem Dense breast tissue R92.2 Active 734901097 Problem Hypertension I10 Active 13940207 Problem History of ovarian cyst Z87.42 Active 51096660 ALLERGIES Substance Reaction Event Type Date Status Sulfamethoxazole-Trimethoprim anaphylaxis Drug Allergy Jan, Active Erythromycin rash Drug Allergy Jan, Active Hydrocodone vomiting Non Drug Allergy Jan, Active ENCOUNTERS Encounter Location Date Diagnosis [facility] [address] [facility] [id number] [address] Apr, [facility] [address] [address] Apr, [facility] [id number] [address] Mar, [facility] [address] [address] Mar, Hypertension I10 [facility] [id number] [place] [address] Mar, Generalized anxiety disorder F41.1 and Bereavement Z63.4 [facility] [address] [address] Feb, Generalized anxiety disorder F41.1 and Bereavement Z63.4 [facility] [id number] [place] [address] Feb, [facility] [id number] [place] [address] Feb, Generalized anxiety disorder F41.1 and Bereavement Z63.4 [facility] [id number] [place] [address] Feb, Generalized anxiety disorder F41.1 and Bereavement Z63.4 [facility] [id number] [place] [address] Jan, Hypertension I10 and Acute non-recurrent maxillary sinusitis J01.00 [facility] [address] [address] December, [facility] [address] [address] December, Hypertension I10 [facility] [address] [address] December, Generalized anxiety disorder F41.1 [facility] [address] [id number], [place] [address] Oct, Encounter for dental examination Z01.20 [facility] [address] [id number], [place] [address] 06 Oct, 2017 Encounter for dental examination Z01.20 [facility] [address] [id number], [place] [address] 02 Oct, 2017 Dental examination Z01.20 [facility] [address] [address] Oct, Generalized anxiety disorder F41.1 [facility] [address] [id number], [place] [address] Aug, Dental examination Z01.20 [facility] [id number] [place] [address] Aug, Generalized anxiety disorder F41.1 [facility] [id number] [place] [address] Aug, [facility] [id number] [place] [address] 09 Aug, 2017 Encounter for dental examination Z01.20 [facility] [id number] [place] [address] Aug, Subacute maxillary sinusitis J01.00 [facility] [id number], [place] [address] 22 Jul, 2017 Dental examination Z01.20 [facility] [address] [address] Jul, Generalized anxiety disorder F41.1 [facility] [address] [id number] [address] 11 Jul, 2017 Diverticulitis K57.92 [facility] [id number] [place] [address] 28 Jun, 2017 Encounter for immunization Z23 [facility] [address] [id number], [place] [address] 22 Jun, 2017 Dental examination Z01.20 [facility] [address] [address] 14 Jun, 2017 Generalized anxiety disorder F41.1 [facility] [address] [id number], [place] [address] Jun, Dental examination Z01.20 [facility] [address] [id number], [place] [address] May, [facility] [address] [id number] [id number] May, Dental examination Z01.20 [facility] [id number] [place] [id number] May, Dental examination Z01.20 [facility] [address] [id number], [place] [address] May, Dental examination Z01.20 [facility] [id number] [place] [address] May, [facility] [address] [id number] [place] [address] May, Generalized anxiety disorder F41.1 [facility] [id number] [place] [address] May, Localized edema R60.0 ; Yeast vaginitis B37.3 and Gastroesophageal reflux disease with esophagitis K21.0 [facility] [address] [id number][place] [id number] Apr, Dental examination Z01.20 [facility] [address] [id number], [place] [address] Apr, Dental examination Z01.20 [facility] [address] [id number], [place] [address] 05 Apr, 2017 Dental examination Z01.20 [facility] [address] [facility] [id number] [place] [address] Mar, Dyspepsia R10.13 [facility] [address] [facility] [id number], [place] [address] Mar, Generalized anxiety disorder F41.1 [facility] [address] [id number], [place] [address] Mar, Encounter for dental examination Z01.20 [facility] [address] [id number] [place] [id number] Mar, [facility] [address] [id number] Mar, Dental examination Z01.20 [facility] [id number] [place] [address] Feb, Hypertension I10 and Tachycardia R00.0 [facility] [address] [id number], [place] [address] Feb, [facility] [id number] [place] [address] Feb, Generalized anxiety disorder F41.1 [facility] [id number] [place] [id number] Feb, Dental examination Z01.20 [facility] [id number] [place] [address] Jan, Generalized anxiety disorder F41.1 [facility] [id number] [place] [address] December, Generalized anxiety disorder F41.1 [facility] [address] [id number] [place] [id number] December, Encounter for dental examination Z01.20 [facility] [address] [id number], [place] [address] Nov, [facility] [id number] [place] [address] Nov, [facility] [address] [facility] [id number] [place] [address] Nov, Generalized anxiety disorder F41.1 [facility] [id number] [place] [address] 30 Oct, 2016 [facility] [address] [id number] Oct, Dental examination Z01.20 [facility] [id number] [place] [address] Oct, Vaginal dryness N89.8 [facility] [id number] [place] [address] Oct, Pseudoseizures F44.5 [facility] [id number] [place] [address] Oct, Generalized anxiety disorder F41.1 [place] [id number] [place] [address] Sep, Abnormal uterine bleeding (AUB) N93.9 ; Vaginal dryness N89.8 and Screening breast examination Z12.39 [place] [id number] [place] [address] Sep, Dental examination Z01.20 [place] [id number] [place] [address] Sep, Generalized anxiety disorder F41.1 [place] [address] [place] [address] 06 Sep, 2016 Unspecified ovarian cyst, right side N83.201 ; Unspecified ovarian cyst, left side N83.202 ; Yeast infection of the vagina B37.3 ; Mitral valve prolapse I34.1 and Hypertension I10 [facility] [address] [place] [address] Aug, Generalized anxiety disorder F41.1 [place] [id number] [place] [address] Jul, [place] [id number] [place] [address] Jul, Generalized anxiety disorder F41.1 [place] [id number] [place] [address] 15 Jun, 2016 Generalized anxiety disorder F41.1 [facility] [address] [address] 28 May, 2016 Encounter for immunization Z23 [facility] [address] [address] 17 May, 2016 Generalized anxiety disorder F41.1 and Depressive disorder, not elsewhere classified F32.9 [facility] [address] [address] 28 Apr, 2016 Hypertension I10 [facility] [address] [address] 22 Apr, 2016 Cervicalgia M54.2 [facility] [address] [address] 12 Apr, 2016 Cervicalgia M54.2 [facility] [address] [address] 09 Mar, 2016 Generalized anxiety disorder F41.1 and Depressive disorder, not elsewhere classified F32.9 [facility] [address] [id number] 14 Feb, 2016 Visit for dental examination Z01.20 [facility] [id number] [place] [address] 11 Feb, 2016 Pseudoseizures F44.5 ; Migraine without status migrainosus, not intractable, unspecified migraine type G43.909 and Essential hypertension I10 [facility] [id number] [place] [id number] 06 Feb, 2016 Dental examination Z01.20 [facility] [address] [address] 05 Feb, 2016 Generalized anxiety disorder F41.1 and Depressive disorder, not elsewhere classified F32.9 [facility] [id number] [place] [address] 27 Mango, 2016 Tachycardia R00.0 [place] [address] [place] [address] December, Eustachian tube dysfunction, bilateral H69.83 [place] [id number] [place] [address] December, Generalized anxiety disorder F41.1 and Depressive disorder, not elsewhere classified F32.9 [place] [address] [address] Nov, [place] [id number] [place] [address] Nov, [place] [id number] [place] [address] Nov, Hypertension I10 ; Onychomycosis B35.1 ; [...] and Complex cyst of left ovary N83.29 [place] [id number] [place] [address] Nov, Sinusitis J32.9 [place] [id number] [place] [address] Oct, Complex cyst of left ovary N83.29 [place] [id number] [place] [address] Oct, Onychomycosis B35.1 [facility] [address] [place] [address] [id number] Oct, Dental examination Z01.20 [place] [id number] [place] [address] 09 Mar, 2016 Well woman exam Z01.419 [...] R92.2 and History of colon polyps Z86.010 [place] [address] [address] Oct, Generalized anxiety disorder F41.1 and Depressive disorder, not elsewhere classified F32.9 [place] [address] [address] 22 Sep, 2015 Hypertension I10 and Onychomycosis B35.1 [place] [address] [address] 16 Sep, 2015 Skin tags, multiple acquired L91.8 [place] [address] [address] Aug, [place] [address] [address] Aug, [place] [id number] [place] [address] Aug, [place] [address] [address] Aug, Generalized anxiety disorder F41.1 and Depressive disorder, not elsewhere classified F32.9 [place] [address] [address] Jul, Skin lesion L98.9 [place] [address] [address] Jun, Generalized anxiety disorder F41.1 and Depressive disorder, not elsewhere classified F32.9 [place] [address] [address] Jun, [facility] [id number] [place] [address] Jun, Generalized anxiety disorder F41.1 [facility] [id number] [place] [address] May, Encounter for immunization Z23 and Right shoulder pain M25.511 [facility] [id number] [place] [address] Apr, [facility] [id number] [place] [address] Apr, Generalized anxiety disorder 300.02 and Depressive disorder, not elsewhere classified [address] [facility] [id number] [place] [address] [phone] Mar, Dental examination V72.2 [facility] [id number] [place] [address] Mar, Generalized anxiety disorder 300.02 and Depressive disorder, not elsewhere classified 311 [facility] [id number] [place] [address] Mar, Depression, major, recurrent, 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.35 and 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 [facility] [address] [place] [address] Feb, Generalized anxiety disorder 300.02 and Depressive disorder, not elsewhere classified [address] [facility] [address] [place] [address] [phone] Feb, Dental examination V72.2 [facility] [id number] [place] [address] Jan, Generalized anxiety disorder 300.02 and Depressive disorder, not elsewhere classified 311 [facility] [address] [place] [address] Jan, [facility] [id number] [address] December, Generalized anxiety disorder 300.02 and Depressive disorder, not elsewhere classified 311 [facility] [id number] [address] December, Major depressive disorder, recurrent, unspecified 296.30 and Panic disorder with agoraphobia 300.21 [facility] [id number] [place] [address] Nov, [facility] [id number] [place] [address] Nov, [facility] [id number] [place] [address] Oct, [facility] [id number] [place] [address] Oct, [facility] [id number] [place] [address] Oct, [facility] [address] [place] [address] Oct, [facility] [address] [address] Sep, [facility] [address], [place] [address] Sep, [facility] [address], [place] [address] Sep, [facility] [address], [place] [address] Sep, [facility] [address], [place] [address] Sep, [facility] [address], [place] [address] Sep, [facility] [address], [place] [address] Sep, 2014 [facility] [place] [facility] [address] [id number] [place] [address] Sep, 2014 [facility] [place] [facility] [address] [id number] [place] [address] Sep, 2014 [facility] [place] [facility] [address] [facility] [id number] [place] [address] Sep, 2014 [facility] [place] [facility] [address] [id number] [place] [address] Aug, [facility] [place] [facility] [address] [id number] [place] [address] Aug, [facility] [place] [facility] [address] [id number] [place] [address] Jul, [facility] [address] [facility] [id number] [place] [address] Jul, [facility] [place] [facility] [address] [id number] [place] [address] Jul, [facility] [place] [facility] [address] [facility] [id number] [place] [address] Jul, [facility] [place] [facility] [address] [facility] [id number] [place] [address] Jul, [facility] [place] [facility] [address] [facility] [id number] [place] [address] Jul, [facility] [place] [facility] [address] [id number] [address] Jul, [facility] [place] [facility] [address] [id number] [place] [address] 05 Jul, 2014 [facility] [place] [facility] [address] [facility] [id number] [place] [address] Jul, [facility] [place] [facility] [address] [facility] [id number] [place] [address] Jul, [facility] [place] [facility] [address] [id number] [place] [address] Jul, [facility] [place] [facility] [address] [id number] [place] [address] Jul, [facility] [place] [facility] [address] [id number] [place] [address] Jun, [facility] [place] [facility] [address] [id number] [place] [address] Jun, [facility] [place] [facility] [address] [id number] [place] [address] May, [facility] [place] [facility] [address] [id number] [place] [address] May, [facility] [place] [facility] [address] [id number] [place] [address] May, [facility] [place] [facility] [address] [id number] [place] [address] May, [facility] [place] [facility] [address] [id number] [place] [address] May, [facility] [place] [facility] [address] [id number] [place] [address] May, [facility] [place] [facility] [address] [id number] [place] [address] May, [facility] [place] [facility] [address] [id number] [place] [address] May, [facility] [place] [facility] [address] [id number] [place] [address] May, [facility] [place] [facility] [address] [id number] [place] [address] May, [facility] [place] [facility] [address] [id number] [place] [address] May, [facility] [place] [facility] [address] [id number] [place] [address] May, [facility] [place] [facility] [address] [id number] [place] [address] Apr, [facility] [place] [facility] [address] [id number] [place] [address] Apr, [facility] [place] [facility] [address] [id number] [place] [address] Apr, [facility] [place] [facility] [address] [id number] [place] [address] Apr, [facility] [place] [facility] [address] [id number] [place] [address] Apr, [facility] [place] [facility] [address] [id number] [place] [address] Apr, [facility] [place] [facility] [address] [id number] [place] [address] Feb, [facility] [place] [facility] [address] [id number] [place] [address] Feb, [facility] [place] [facility] [address] [id number] [place] [address] Feb, [facility] [place] [facility] [address] [id number] [place] [address] Feb, [facility] [place] [facility] [address] [id number] [place] [address] Feb, [facility] [place] [facility] [address] [id number] [address] Feb, [facility] [place] [facility] [address] [id number] [place] [address] Jan, [facility] [place] [facility] [address] [id number] [place] [address] Jan, [facility] [place] [facility] [address] [id number] [place] [address] Jan, [facility] [place] [facility] [address] [id number] [place] [address] Jan, [facility] [place] [facility] [address] [id number] [place] [address] Jan, [facility] [place] [facility] [address] [id number] [place] [address] Jan, [facility] [place] [facility] [address] [id number] [place] [address] Jan, [facility] [place] [facility] [address] [id number] [place] [address] Jan, [facility] [place] [facility] [address] [id number] [place] [address] December, [facility] [place] [facility] [address] [id number] [place] [address] December, [facility] [place] [facility] [address] [id number] [place] [address] December, [facility] [place] [facility] [address] [id number] [place] [address] December, [facility] [place] [facility] [address] [id number] [place] [address] Nov, [facility] [place] [facility] [address] [id number] [place] [address] Nov, [facility] [place] [facility] [address] [id number] [place] [address] Nov, [facility] [place] [facility] [address] [id number] [place] [address] Nov, [facility] [place] [facility] [address] [id number] [place] [address] Nov, [facility] [place] [facility] [address] [id number] [place] [address] Nov, [facility] [place] [facility] [address] [id number] [place] [address] Nov, [facility] [place] [facility] [address] [id number] [place] [address] Nov, [facility] [place] [facility] [address] [address] [id number] [place] [address] Oct, [facility] [place] [facility] [address] [id number] [place] [address] Oct, [facility] [place] [facility] [address] [id number] [place] [address] Sep, [facility] [place] [facility] [address] [id number] [place] [address] Sep, [facility] [place] [facility] [address] [id number] [place] [id number] Sep, [facility] [place] [facility] [address] [id number] [place] [address] Sep, [facility] [place] [facility] [address] [id number] [place] [address] Sep, [facility] [place] [facility] [address] [id number] [place] [address] Sep, [facility] [place] [facility] [address] [id number] [place] [address] Aug, [facility] [place] [facility] [address] [id number] [place] [address] Aug, [facility] [place] [facility] [address] [id number] [address] Aug, [facility] [place] [facility] [address] [id number] [place] [address] Aug, [facility] [place] [facility] [address] [id number] [place] [address] Jul, [facility] [place] [facility] [address] [id number] [place] [address] Jul, [facility] [place] [facility] [address] [id number], [place] [address] Jul, [facility] [place] [facility] [address] [id number] [place] [address] Jul, [facility] [place] [facility] [address] [id number] [place] [address] Jun, [facility] [place] [facility] [address] [id number] [place] [address] Jun, [facility] [place] [facility] [address] [id number] [place] [address] May, [facility] [place] [facility] [address] [id number] [place] [address] May, [facility] [place] [facility] [address] [id number] [place] [address] May, [facility] [place] [facility] [address] [id number] [place] [address] May, [facility] [place] [facility] [address] [id number] [place] [address] May, [facility] [place] [facility] [address] [id number] [place] [address] Apr, [facility] [place] [facility] [address] [facility] [id number] [place] [address] Apr, [facility] [place] [facility] [address] [id number] [place] [address] Mar, [facility] [place] [facility] [address] [id number], [place] [address] Mar, [facility] [place] [facility] [address] [id number] [place] [address] 15 Mar, 2013 [facility] [place] [facility] [address] [facility] [id number] [place] [address] Mar, [facility] [place] [facility] [address] [facility] [id number] [place] [address] Feb, [facility] [place] [facility] [address] [id number] [place] [address] 17 Feb, 2013 [facility] [place] [facility] [address] [id number] [place] [address] 16 Feb, 2013 [facility] [place] [facility] [address] [id number] [place] [address] Feb, [facility] [place] [facility] [address] [id number] [place] [address] Feb, [facility] [place] [facility] [address] [id number] [place] [address] Jan, [facility] [place] [facility] [address] [id number] [place] [address] Jan, [facility] [place] [facility] [address] [id number] [place] [address] Jan, [facility] [place] [facility] [address] [id number] [place] [address] Jan, [facility] [place] [facility] [address] [id number] [place] [address] Jan, [facility] [place] [facility] [address] [id number] [place] [address] December, [facility] [place] [facility] [address] [id number] [place] [address] December, [facility] [place] [facility] [address] [id number] [place] [address] Nov, [facility] [place] [facility] [address] [id number] [place] [address] Nov, [facility] [place] [facility] [address] [id number] [place] [address] Oct, [facility] [place] [facility] [address] [id number] [place] [address] 13 Oct, 2012 [facility] [place] [facility] [address] [id number] [place] [address] Oct, [facility] [address] [id number] [place] [address] 14 Sep, 2012 [facility] [place] [facility] [address] [id number] [place] [address] 24 Aug, 2012 [facility] [place] [facility] [address] [facility] [id number] [place] [address] 16 Aug, 2012 [facility] [place] [facility] [address] [id number] [place] [address] 15 Aug, 2012 [facility] [address] [id number] [place] [address] Aug, [facility] [address] [id number] [place] [address] Jul, [facility] [place] [facility] [address] [id number] [place] [address] Jul, [facility] [place] [facility] [address] [id number] [place] [address] Jul, [facility] [place] [facility] [address] [id number] [place] [address] Jul, [facility] [place] [facility] [address] [facility] [id number] [place] [address] Jul, [facility] [place] [facility] [address] [facility] [id number][place] [address] Jul, [facility] [place] [facility] [address] [id number], [place] [address] Jul, [facility] [place] [facility] [address] [id number] [place] [address] Jul, [facility] [place] [facility] [address] [facility] [id number] [address] Jun, [facility] [place] [facility] [address] [facility] [id number] [place] [address] Jun, [facility] [place] [facility] [address] [id number] [place] [address] Jun, [facility] [place] [facility] [address] [id number] [place] [address] Jun, [facility] [place] [facility] [address] [id number] [place] [address] Jun, [facility] [place] [facility] [address] [id number] [place] [address] Jun, [facility] [place] [facility] [address] [id number] [place] [address] May, [facility] [place] [facility] [address] [id number] [place] [address] May, [facility] [place] [facility] [address] [id number] [place] [address] May, [facility] [place] [facility] [address] [id number] [place] [address] May, [facility] [place] [facility] [address] [id number] [place] [address] Apr, [facility] [place] [facility] [address] [id number] [place] [address] 06 Apr, 2012 [facility] [place] [facility] [address] [facility] [id number] [place] [address] Mar, [facility] [place] [facility] [address] [id number] [place] [address] 28 Jan, 2012 [facility] [place] [facility] [address] [id number] [place] [address] 20 Jan, 2012 [facility] [place] [facility] [address] [id number] [place] [address] 16 Jan, 2012 [facility] [place] [facility] [address] [facility] [id number] [place] [address] 15 Jan, 2012 [facility] [place] [facility] [address] [id number] [place] [address] 14 Jan, 2012 [facility] [place] [facility] [address] [id number] [place] [address] 14 Jan, 2012 [facility] [place] [facility] [address] [id number] [place] [address] Jan, [facility] [place] [facility] [address] [id number] [place] [address] December, [facility] [place] [facility] [address] [id number] [place] [address] December, [facility] [address] [id number] [place] [address] December, [facility] [place] [facility] [address] [id number] [place] [address] December, [facility] [address] [id number] [place] [address] Nov, [facility] [place] [facility] [address] [id number] [place] [address] Nov, [facility] [place] [facility] [address] [id number] [place] [address] Oct, [facility] [place] [facility] [address] [id number] [place] [address] Oct, [facility] [place] [facility] [address] [id number] [place] [address] Oct, [facility] [place] [facility] [address] [id number] [place] [address] Sep, [facility] [place] [facility] [address] [id number] [place] [address] Sep, [facility] [place] [facility] [address] [id number] [place] [address] Sep, [facility] [place] [facility] [address] [id number] [place] [address] Aug, [facility] [place] [facility] [address] [id number], [place] [address] Aug, [facility] [address] [id number] [place] [address] Aug, [facility] [place] [facility] [address] [id number] [place] [address] Aug, [facility] [address] [facility] [id number] [place] [address] Aug, [facility] [place] [facility] [address] [id number] [place] [address] Aug, [facility] [address] [id number] [place] [address] Aug, [facility] [place] [facility] [address] [id number] [place] [address] Jul, [facility] [address] [id number] [address] Jul, [facility] [place] [facility] [address] [id number] [place] [address] 30 Jun, 2011 [facility] [place] [facility] [address] [id number] [place] [address] 28 Jun, 2011 [facility] [place] [facility] [address] [id number] [address] 17 Jun, 2011 [facility] [address] [id number] [place] [address] 15 Jun, 2011 [facility] [place] [facility] [address] [id number], [place] [address] 14 Jun, 2011 [facility] [place] [facility] [address] [id number] [place] [address] 14 Jun, 2011 [facility] [place] [facility] [address] [facility] [id number] [place] [address] 07 Jun, 2011 [facility] [place] [facility] [address] [facility] [id number] [place] [address] 07 Jun, 2011 [facility] [place] [facility] [address] [id number] [place] [address] Jun, [facility] [place] [facility] [address] [id number] [place] [address] Jun, [facility] [place] [facility] [address] [id number] [place] [address] May, [facility] [place] [facility] [address] [id number] [place] [address] May, [facility] [place] [facility] [address] [id number] [place] [address] May, [facility] [place] [facility] [address] [id number] [place] [address] May, [facility] [place] [facility] [address] [id number] [place] [address] May, [facility] [place] [facility] [address] [id number] [place] [address] May, [facility] [place] [facility] [address] [id number] [place] [address] Feb, [facility] [place] [facility] [address] [id number] [place] [address] December, [facility] [place] [facility] [address] [id number] [place] [address] Jul, [facility] [place] [facility] [address] [id number] [place] [address] 29 Jul, 2010 [facility] [place] [facility] [address] [id number] [place] [address] Jul, [facility] [place] [facility] [address] [id number] [place] [address] Jul, [facility] [place] [facility] [address] [id number] [place] [address] 15 Jun, 2010 [facility] [place] [facility] [address] [id number] [place] [address] Jul, [facility] [address] [id number] [address] Jul, [facility] [id number] [address] Jul, [facility] [address] [id number] [address] Jul, [facility] [id number] [place] [address] Jul, [facility] [id number] [address] Jul, [facility] [id number] [place] [address] Jan, [facility] [id number] [address] Sep, [facility] [id number] [address] Sep, IMMUNIZATIONS No Known Immunizations SOCIAL HISTORY Never Assessed REASON FOR VISIT Blood Pressure, Pt reports she has a sinus infection but has not been able to tr eat it due to taking care of her dad. -Octavio NUNES PLAN OF CARE Activity Details Follow Up 6 Months Reason:bp VITAL SIGNS Height 66 in 2018-01-28 Weight 171.8 lbs 2018-01-28 Temperature 98.0 degrees Fahrenheit 2018-01-28 Heart Rate 71 bpm 2018-01-28 Respiratory Rate 20 2018-01-28 BMI 27.73 kg/m2 2018-01-28 Blood pressure systolic 130 mmHg 2018-01-28 Blood pressure diastolic 88 mmHg 2018-01-28 MEDICATIONS Medication Instructions Dosage Frequency Start Date End Date Duration Status Inderal LA 80 MG Orally Once a day. Take along with the 120 mg Capsule 1 capsule December, 90 days Active Clorazepate Dipotassium 7.5 MG Orally 4 times a day 1 tablet as needed 6h 30 days Active [place] 7.5-325 MG Orally every 4-6 hours as needed 1 tablet Not-Taking Hydrochlorothiazide 25 MG Orally Once a day as needed TAKE ONE 90 days Active Ibuprofen 600 MG Orally Three times a day 1 tablet with food or milk as needed 8h May, Not-Taking Cephalexin 500 MG Orally every 6 hrs 1 capsule 6h Not-Taking Hyoscyamine Sulfate 0.125 mg 1 tablet by Oral route 4 times per day PRN Jul, Active Zofran Not-Taking Probiotic Not-Taking Fluconazole 150 MG Orally now and may repeat in 3 days 1 tablet May, Not-Taking Flagyl 500 MG Orally 4 times a day 1 tablet 6h Not-Taking Percocet 5-325 MG Orally every 6 hrs 1 tablet as needed 6h Not-Taking Propranolol HCl 20 mg Orally Once a day prn tachycardia 1 tablet Jan, Active Azithromycin Not-Taking Inderal LA 120 MG Orally Once a day. Take along with the 80mg Capsule 1 capsule December, 90 days Active Bactroban Not-Taking Mucinex 600 MG Orally every 12 hrs 1 tablet as needed 12h Not-Taking Omeprazole 20 MG TAKE ONE CAPSULE BY MOUTH ONCE DAILY BEFORE MEALS Jun, 30 Active Motrin Active Levofloxacin 500 mg Orally Once a day 1 tablet 24h Jan, Jan, 10 day(s) Active RESULTS No Results PROCEDURES Procedure Date Ordered Result Body Site [facility] January 28, 2018 INSTRUCTIONS MEDICATIONS ADMINISTERED No Known Medications [...]
--- OUTSIDE RECORDS SUMMARY | 2019-01-22 20:56 | XMS REPORT ---
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 Name Role Phone LETTY WILKINS Unavailable PROBLEMS Type Condition ICD9-CM Code MPW81-SP Code Onset Dates Condition Status SNOMED Code Problem Family history of diabetes mellitus Z83.3 Active 159724281 Problem Hot flashes N95.1 Active 282343138 Problem Excessive and frequent menstruation with irregular cycle N92.1 Active 339364552 Problem Diverticulitis K57.92 Active 339882854 Problem Gastroesophageal reflux disease with esophagitis K21.0 Active 608881564 Problem Mitral valve prolapse I34.1 Active 976202835 Problem Perimenopausal N95.1 Active 494976590240429 Problem Tachycardia R00.0 Active 0797673 Problem Abnormal uterine bleeding (AUB) N93.9 Active 80421442641116 Problem History of diverticulitis Z87.19 Active 709564772813743 Problem History of colon polyps Z86.010 Active 119215021 Problem Generalized anxiety disorder F41.1 Active 526783972 Problem Dense breast tissue R92.2 Active 451223795 Problem Hypertension I10 Active 49359436 Problem History of ovarian cyst Z87.42 Active 72483626 ALLERGIES No Information ENCOUNTERS Encounter Location Date Diagnosis [facility] [id number] [address] Apr, [facility] [address] [address] Apr, [facility] [address] [address] Mar, [facility] [address] [address] Mar, Hypertension I[address] [address] Mar, Generalized anxiety disorder F41.1 and Bereavement Z63.4 [facility] [id number] [place] [address] Feb, Generalized anxiety disorder F41.1 and Bereavement Z63.4 [facility] [id number] [place] [address] Feb, [facility] [id number] [place] [address] Feb, Generalized anxiety disorder F41.1 and Bereavement Z63.4 [facility] [id number] [place] [address] Feb, Generalized anxiety disorder F41.1 and Bereavement Z63.4 [facility] [id number] [place] [address] Jan, Hypertension I10 and Acute non-recurrent maxillary sinusitis J01.00 [facility] [id number] [place] [address] December, [facility] [id number] [place] [address] December, Hypertension I10 [facility] [address] [address] December, Generalized anxiety disorder F41.1 [facility] [address] [id number], [place] [address] Oct, Encounter for dental examination Z01.20 [facility] [address] [id number], [place] [address] 06 Oct, 2017 Encounter for dental examination Z01.20 [facility] [address] [id number], [place] [address] Oct, Dental examination Z01.20 [facility] [address] [id number] [address] Oct, Generalized anxiety disorder F41.1 [facility] [address] [id number], [place] [address] 30 Aug, 2017 Dental examination Z01.20 [facility] [id number] [address] Aug, Generalized anxiety disorder F41.1 [facility] [id number] [place] [address] Aug, [facility] [id number] [place] [address] 09 Aug, 2017 Encounter for dental examination Z01.20 [address] [place] [id number] [place] [address] 08 Aug, 2017 Subacute maxillary sinusitis J01.00 [facility] [id number], [place] [address] Jul, Dental examination Z01.20 [facility] [id number] [place] [address] 19 Jul, 2017 Generalized anxiety disorder F41.1 [facility] [id number] [place] [address] 11 Jul, 2017 Diverticulitis K57.92 [facility] [address] [place] [address] 28 Jun, 2017 Encounter for immunization Z23 [facility] [address] [id number], [place] [address] 22 Jun, 2017 Dental examination Z01.20 [facility] [address] [address] 14 Jun, 2017 Generalized anxiety disorder F41.1 [facility] [address] [id number], [place] [address] 07 Jun, 2017 Dental examination Z01.20 [facility] [address] [id number] [address] May, [facility] [address] [id number] [address] May, Dental examination Z01.20 [facility] [address] [id number] [address] May, Dental examination Z01.20 [facility] [id number] [place] [address] May, Dental examination Z01.20 [facility] [address] [id number] [address] May, [facility] [id number] [place] [address] May, Generalized anxiety disorder F41.1 [facility] [id number] [place] [address] May, Localized edema R60.0 ; Yeast vaginitis B37.3 and Gastroesophageal reflux disease with esophagitis K21.0 [facility] [id number] [place] [id number] Apr, Dental examination Z01.20 [facility] [address] [id number], [place] [address] Apr, Dental examination Z01.20 [facility] [id number] [place] [address] 05 Apr, 2017 Dental examination Z01.20 [facility] [address] [address] Mar, Dyspepsia R10.13 [facility] [id number] [place] [address] Mar, Generalized anxiety disorder F41.1 [facility] [address] [id number], [place] [address] Mar, Encounter for dental examination Z01.20 [facility] [address] [address] Mar, [facility] [id number] [place] [id number] Mar, Dental examination Z01.20 [facility] [id number] [place] [address] Feb, Hypertension I10 and Tachycardia R00.0 [facility] [address] [id number], [place] [address] Feb, [facility] [id number] [place] [address] Feb, Generalized anxiety disorder F41.1 [facility] [id number] [place] [id number] Feb, Dental examination Z01.20 [facility] [id number] [place] [address] Jan, Generalized anxiety disorder F41.1 [facility] [id number] [place] [address] December, Generalized anxiety disorder F41.1 [facility] [address] [place] [id number] December, Encounter for dental examination Z01.20 [facility] [id number] [place] [address] Nov, [facility] [id number] [place] [address] Nov, [facility] [id number] [place] [address] Nov, Generalized anxiety disorder F41.1 [facility] [address] [address] Oct, [facility] [address] [address] Oct, Dental examination Z01.20 [facility] [address] [place] [address] 27 Oct, 2016 Vaginal dryness N89.8 [place] [id number] [place] [address] Oct, Pseudoseizures F44.5 [place] [id number] [place] [address] Oct, Generalized anxiety disorder F41.1 [place] [id number] [place] [address] Sep, Abnormal uterine bleeding (AUB) N93.9 ; Vaginal dryness N89.8 and Screening breast examination Z12.39 [place] [id number] [place] [address] 20 Sep, 2016 Dental examination Z01.20 [address] [place] [id number] [place] [address] Sep, Generalized anxiety disorder F41.1 [address] [place] [id number] [place] [address] 06 Sep, 2016 Unspecified ovarian cyst, right side N83.201 ; Unspecified ovarian cyst, left side N83.202 ; Yeast infection of the vagina B37.3 ; Mitral valve prolapse I34.1 and Hypertension I10 [id number] [place] [address] Aug, Generalized anxiety disorder F41.1 [place] [id number] [place] [address] Jul, [place] [id number] [place] [address] Jul, Generalized anxiety disorder F41.1 [address] [place] [id number] [place] [address] Jun, Generalized anxiety disorder F41.1 [place] [id number] [place] [address] 28 May, 2016 Encounter for immunization Z23 [facility] [address] [address] 17 May, 2016 Generalized anxiety disorder F41.1 and Depressive disorder, not elsewhere classified F32.9 [facility] [id number] [place] [address] 28 Apr, 2016 Hypertension I10 [facility] [address] [address] 22 Apr, 2016 Cervicalgia M54.2 [facility] [address] [address] 12 Apr, 2016 Cervicalgia M54.2 [facility] [id number] [place] [address] Mar, Generalized anxiety disorder F41.1 and Depressive disorder, not elsewhere classified F32.9 [facility] [address] [id number] Feb, Visit for dental examination Z01.20 [facility] [address] [address] Feb, Pseudoseizures F44.5 ; Migraine without status migrainosus, not intractable, unspecified migraine type G43.909 and Essential hypertension I10 [facility] [id number] [place] [id number] Feb, Dental examination Z01.20 [facility] [id number] [place] [address] Feb, Generalized anxiety disorder F41.1 and Depressive disorder, not elsewhere classified F32.9 [facility] [id number] [place] [address] Jan, Tachycardia R00.0 [facility] [id number] [place] [address] 24 May, 2016 Eustachian tube dysfunction, bilateral H69.83 [address] [place] [place] [address] December, Generalized anxiety disorder F41.1 and Depressive disorder, not elsewhere classified F32.9 [place] [id number] [place] [address] Nov, [address] [place] [id number] [place] [address] Nov, [address] [place] [id number] [place] [address] Nov, Hypertension I10 ; Onychomycosis B35.1 ; [...] and Complex cyst of left ovary N83.29 [place] [id number] [place] [address] 14 Nov, 2015 Sinusitis J32.9 [address] [id number] [place] [address] Oct, Complex cyst of left ovary N83.29 [address] [id number] [place] [address] Oct, Onychomycosis B35.1 [facility] [address] [place] [id number] Oct, Dental examination Z01.20 [place] [id number] [place] [address] 09 Oct, 2015 Well woman exam Z01.419 [...] R92.2 and History of colon polyps Z86.010 [place] [id number] [place] [address] 03 Oct, 2016 Generalized anxiety disorder F41.1 and Depressive disorder, not elsewhere classified F32.9 [place] [address] [address] Sep, Hypertension I10 and Onychomycosis B35.1 [place] [id number] [place] [address] 16 Sep, 2015 Skin tags, multiple acquired L91.8 [address] [address] [address] Aug, [place] [address] [address] Aug, [place] [id number] [place] [address] Aug, [place] [id number] [place] [address] Aug, Generalized anxiety disorder F41.1 and Depressive disorder, not elsewhere classified F32.9 [place] [id number] [place] [address] Jul, Skin lesion L98.9 [address] [place] [address] [address] Jun, Generalized anxiety disorder F41.1 and Depressive disorder, not elsewhere classified F32.9 [place] [id number] [place] [address] Jun, [place] [place] [address] [id number] [address] Jun, Generalized anxiety disorder F41.1 [facility] [id number] [place] [address] May, Encounter for immunization Z23 and Right shoulder pain M25.511 [facility] [address] [place] [address] Apr, [facility] [id number] [place] [address] 14 Apr, 2015 Generalized anxiety disorder 300.02 and Depressive disorder, not elsewhere classified 311 [facility] [address] [id number] Mar, Dental examination V72.2 [facility] [id number] [place] [address] Mar, Generalized anxiety disorder 300.02 and Depressive disorder, not elsewhere classified 311 [facility] [id number] [place] [address] Mar, Depression, major, recurrent, 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.35 and 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 [facility] [address] [place] [address] Feb, Generalized anxiety disorder 300.02 and Depressive disorder, not elsewhere classified 311 [facility] [address] [place] [id number] Feb, Dental examination V72.2 [facility] [id number] [place] [address] Jan, Generalized anxiety disorder 300.02 and Depressive disorder, not elsewhere classified 311 [facility] [address] [place] [address] Jan, [facility] [address] [place] [address] December, Generalized anxiety disorder 300.02 and Depressive disorder, not elsewhere classified 311 [facility] [address] [address] December, Major depressive disorder, recurrent, unspecified 296.30 and Panic disorder with agoraphobia 300.21 [facility] [address] [place] [address] 14 Nov, 2014 [facility] [id number] [address] Nov, [facility] [address] [address] Oct, [facility] [id number] [place] [address] Oct, [facility] [address] [address] Oct, [facility] [id number] [place] [address] Oct, [facility] [address] [address] Sep, [facility] [address] [address] Sep, [facility] [address] [address] Sep, [facility] [address] [address] Sep, [facility] [address] [address] Sep, [facility] [address] [address] Sep, [facility] [address] [address] Sep, [facility] [address] [address] Sep, 2014 [facility] [place] [facility] [address] [id number] [place] [address] Sep, [facility] [place] [facility] [address] [id number] [place] [address] Sep, [facility] [place] [facility] [address] [facility] [id number] [place] [address] Aug, [facility] [place] [facility] [address] [id number] [place] [address] Aug, [facility] [place] [facility] [address] [id number] [place] [address] Jul, [facility] [place] [facility] [address] [facility] [id number] [place] [address] Jul, [facility] [place] [facility] [address] [facility] [id number] [place] [address] Jul, [facility] [place] [facility] [address] [id number] [place] [address] Jul, [facility] [place] [facility] [address] [id number] [place] [address] Jul, [facility] [place] [facility] [address] [facility] [id number] [place] [address] Jul, [facility] [place] [facility] [address] [facility] [id number] [place] [address] 05 Jul, 2014 [facility] [place] [facility] [address] [id number] [address] 05 Jul, 2014 [facility] [place] [facility] [address] [id number] [place] [address] Jul, [facility] [place] [facility] [address] [facility] [id number] [place] [address] 04 Jul, 2014 [facility] [place] [facility] [address] [facility] [id number] [place] [address] Jul, [facility] [place] [facility] [address] [id number] [place] [address] Jul, [facility] [place] [facility] [address] [id number] [place] [address] Jun, [facility] [place] [facility] [address] [id number] [place] [address] Jun, [facility] [place] [facility] [address] [id number] [place] [address] May, [facility] [place] [facility] [address] [id number] [place] [address] May, [facility] [place] [facility] [address] [id number] [place] [address] May, [facility] [place] [facility] [address] [id number] [place] [address] May, [facility] [place] [facility] [address] [id number] [place] [address] May, [facility] [place] [facility] [address] [id number] [place] [address] May, [facility] [place] [facility] [address] [id number] [place] [address] May, [facility] [place] [facility] [address] [id number] [place] [address] May, [facility] [place] [facility] [address] [id number] [place] [address] May, [facility] [place] [facility] [address] [id number] [place] [address] May, [facility] [place] [facility] [address] [id number] [place] [address] May, [facility] [place] [facility] [address] [id number] [place] [address] May, [facility] [place] [facility] [address] [id number] [place] [address] Apr, [facility] [place] [facility] [address] [id number] [place] [address] 30 Apr, 2013 [facility] [place] [facility] [address] [id number] [place] [address] Apr, [facility] [place] [facility] [address] [id number] [place] [address] Apr, [facility] [place] [facility] [address] [id number] [place] [address] Apr, [facility] [place] [facility] [address] [id number] [place] [address] Apr, [facility] [place] [facility] [address] [id number] [place] [address] Feb, [facility] [place] [facility] [address] [id number] [place] [address] Feb, [facility] [place] [facility] [address] [id number] [place] [address] Feb, [facility] [place] [facility] [address] [id number] [place] [address] Feb, [facility] [place] [facility] [address] [id number] [place] [address] Feb, [facility] [place] [facility] [address] [id number] [place] [address] Feb, [facility] [place] [facility] [address] [id number] [place] [address] Jan, [facility] [place] [facility] [address] [id number] [place] [address] Jan, [facility] [place] [facility] [address] [id number] [place] [address] Jan, [facility] [place] [facility] [address] [id number] [place] [address] Jan, [facility] [place] [facility] [address] [id number] [place] [address] Jan, [facility] [place] [facility] [address] [id number] [place] [address] Jan, [facility] [place] [facility] [address] [id number] [place] [address] Jan, [facility] [place] [facility] [address] [id number] [place] [address] Jan, [facility] [place] [facility] [address] [id number] [place] [address] December, [facility] [place] [facility] [address] [id number] [place] [address] December, [facility] [place] [facility] [address] [id number] [place] [address] December, [facility] [place] [facility] [address] [id number] [place] [address] December, [facility] [place] [facility] [address] [id number] [place] [address] Nov, [facility] [place] [facility] [address] [id number] [place] [address] Nov, [facility] [place] [facility] [address] [id number] [place] [address] Nov, [facility] [place] [facility] [address] [id number] [place] [address] Nov, [facility] [place] [facility] [address] [id number] [place] [address] Nov, [facility] [place] [facility] [address] [id number] [place] [address] Nov, [facility] [place] [facility] [address] [id number] [place] [address] Nov, [facility] [place] [facility] [address] [id number] [place] [address] Nov, [facility] [place] [facility] [address] [id number] [place] [address] Oct, [facility] [place] [facility] [address] [id number] [place] [address] Oct, [facility] [place] [facility] [address] [id number] [place] [address] Sep, [facility] [place] [facility] [address] [id number] [place] [address] Sep, [facility] [place] [facility] [address] [id number] [place] [id number] Sep, [facility] [place] [facility] [address] [id number] [place] [address] Sep, [facility] [place] [facility] [address] [id number] [place] [address] Sep, [facility] [place] [facility] [address] [id number] [place] [address] Sep, [facility] [facility] [address] [id number] [place] [address] Aug, [facility] [place] [facility] [address] [id number] [place] [address] Aug, [facility] [place] [facility] [address] [id number] [place] [address] Aug, [facility] [place] [facility] [address] [id number] [place] [address] Aug, [facility] [place] [facility] [address] [id number] [place] [address] Jul, [facility] [place] [facility] [address] [id number] [place] [address] Jul, [facility] [place] [facility] [address] [id number] [place] [address] Jul, [facility] [place] [facility] [address] [id number] [place] [address] Jul, [facility] [place] [facility] [address] [id number] [place] [address] Jun, [facility] [place] [facility] [address] [id number] [place] [address] Jun, [facility] [place] [facility] [address] [id number] [place] [address] May, [facility] [place] [facility] [address] [id number] [place] [address] May, [facility] [place] [facility] [address] [id number] [place] [address] May, [facility] [place] [facility] [address] [id number] [place] [address] May, [facility] [place] [facility] [address] [id number] [place] [address] May, [facility] [place] [facility] [address] [id number] [place] [address] Apr, [facility] [place] [facility] [address] [id number] [place] [address] Apr, [facility] [place] [facility] [address] [id number] [place] [address] Mar, [facility] [place] [facility] [address] [id number] [place] [address] Mar, [facility] [place] [facility] [address] [id number] [place] [address] Mar, [facility] [place] [facility] [address] [id number] [place] [address] Mar, [facility] [place] [facility] [address] [id number] [place] [address] Feb, [facility] [place] [facility] [address] [id number] [place] [address] Feb, [facility] [place] [facility] [address] [id number] [place] [address] 16 Feb, 2013 [facility] [address] [id number] [place] [address] Feb, [facility] [address] [id number] [place] [address] 10 Feb, 2013 [facility] [address] [id number] [place] [address] Jan, [facility] [address] [id number] [place] [address] Jan, [facility] [address] [id number] [place] [address] Jan, [facility] [address] [id number] [place] [address] Jan, [facility] [address] [id number] [place] [address] Jan, [facility] [address] [id number] [place] [address] December, [facility] [address] [id number] [place] [address] December, [facility] [address] [id number] [place] [address] Nov, [facility] [address] [id number] [place] [address] Nov, [facility] [address] [id number] [place] [address] Oct, [facility] [address] [id number] [place] [address] Oct, [facility] [address] [id number] [place] [address] 05 Oct, 2012 [facility] [address] [id number] [place] [address] 14 Sep, 2012 [facility] [address] [id number] [place] [address] Aug, [facility] [place] [facility] [address] [id number] [place] [address] Aug, [facility] [place] [facility] [address] [id number] [place] [address] Aug, [facility] [address] [id number] [place] [address] Aug, [facility] [address] [id number] [place] [address] Jul, [facility] [place] [address] [id number] [place] [address] Jul, [facility] [address] [id number] [place] [address] Jul, [facility] [address] [id number] [place] [address] Jul, [facility] [facility] [address] [id number] [place] [address] Jul, [facility] [address] [facility] [id number] [place] [address] Jul, [facility] [facility] [address] [facility] [id number] [place] [address] Jul, [facility] [address] [id number] [place] [address] Jul, [facility] [address] [id number] [place] [address] Jun, [facility] [place] [facility] [address] [id number] [place] [address] Jun, [facility] [address] [facility] [id number] [place] [address] Jun, [facility] [address] [id number] [place] [address] Jun, [facility] [facility] [address] [id number] [place] [address] Jun, [facility] [address] [facility] [id number] [place] [address] Jun, [facility] [id number] [place] [address] May, [facility] [address] [facility] [id number] [place] [address] May, [facility] [address] [facility] [id number] [place] [address], [place] [address] May, [facility] [address] [facility] [id number] [place] [address] May, [facility] [id number] [address] Apr, [facility] [address] [facility] [id number] [place] [address] Apr, [facility] [id number] [place] [address] Mar, [facility] [address] [id number] [place] [address] Jan, [facility] [id number] [address] Jan, [facility] [address] [facility] [id number] [place] [address] 16 Jan, 2012 [facility] [address] [facility] [id number] [place] [address] 15 Jan, 2012 [facility] [address] [facility] [id number] [place] [address] 14 Jan, 2012 [facility] [id number] [address] 14 Jan, 2012 [facility] [address] [id number] [place] [address] Jan, [facility] [address] [id number] [place] [address] December, [facility] [address] [id number] [place] [address] December, [facility] [address] [id number] [place] [address] December, [facility] [address] [id number] [place] [address] December, [facility] [address] [id number] [place] [address] Nov, [facility] [address] [id number] [place] [address] Nov, [facility] [address] [id number] [place] [address] Oct, [facility] [address] [id number] [place] [address] Oct, [facility] [address] [id number] [place] [address] Oct, [facility] [address] [id number] [place] [address] Sep, [facility] [address] [id number] [place] [address] Sep, [facility] [address] [id number] [place] [address] Sep, [facility] [address] [id number] [place] [address] Aug, [facility] [address] [id number] [place] [address] Aug, [facility] [address] [id number] [place] [address] Aug, [facility] [address] [id number] [place] [address] Aug, [facility] [address] [id number] [place] [address] Aug, [facility] [address] [id number] [place] [address] Aug, [facility] [place] [address] [id number] [place] [address] Aug, [facility] [place] [facility] [address] [id number] [place] [address] Jul, [facility] [place] [facility] [address] [id number] [place] [address] Jul, [facility] [place] [facility] [address] [id number] [place] [address] 30 Jun, 2011 [facility] [address] [id number] [place] [address] 28 Jun, 2011 [facility] [address] [id number] [place] [address] 17 Jun, 2011 [facility] [address] [id number] [place] [address] 15 Jun, 2011 [facility] [address] [id number] [place] [address] 14 Jun, 2011 [facility] [address] [id number] [place] [address] 14 Jun, 2011 [facility] [place] [facility] [address] [id number] [place] [address] 07 Jun, 2011 [facility] [address] [id number] [place] [address] 07 Jun, 2011 [facility] [place] [address] [id number] [place] [address] 02 Jun, 2011 [facility] [place] [facility] [address] [id number] [place] [address] 02 Jun, 2011 [facility] [address] [id number] [place] [address] May, [facility] [address] [id number] [place] [address] 31 May, 2011 [facility] [address] [id number] [place] [address] May, [facility] [address] [id number] [place] [address] 24 May, 2011 [facility] [address] [id number] [place] [address], [place] [address] 18 May, 2011 [facility] [address] [id number] [place] [address] May, [facility] [address] [id number] [place] [address] Feb, [facility] [address] [id number] [place] [address] December, [facility] [address] [id number] [place] [address] 29 Jul, 2010 [facility] [address] [id number] [place] [address] 29 Jul, 2010 [facility] [facility] [address] [id number] [place] [address] 22 Jul, 2010 [facility] [address] [id number] [place] [address] 21 Jul, 2010 [facility] [place] [facility] [address] [id number] [place] [address] 15 Jun, 2010 [facility] [place] [facility] [address] [id number] [place] [address] 31 Jul, 2009 [facility] [place] [facility] [address] [id number] [place] [address] Jul, [facility] [address] [id number] [address] Jul, [facility] [id number] [address] Jul, [facility] [address] [id number] [address] Jul, [facility] [id number] [address] Jul, [facility] [id number] [address] Jan, [facility] [id number] [address] Sep, [facility] [id number] [address] Sep, IMMUNIZATIONS No Known Immunizations SOCIAL HISTORY Never Assessed REASON FOR VISIT Prior Authorization Request PLAN OF CARE VITAL SIGNS MEDICATIONS Unknown [...]
[2019-01-22 20:57] LABS: BASOPHILS # (AUTO) 0.1 10^3/uL (0.0-0.1); BASOPHILS % (AUTO) 1 % (0-10); EOSINOPHILS # (AUTO) 0.2 10^3/uL (0.0-0.3); EOSINOPHILS % (AUTO) 2 % (0-10); HEMATOCRIT 38 % (35-52); HEMOGLOBIN 13.4 G/DL (11.5-16.0); LYMPHOCYTES # (AUTO) 3.9 X 10^3 (1.0-4.0); LYMPHOCYTES % (AUTO) 38 % (12-44); MEAN CORPUSCULAR HEMOGLOBIN 30 PG (25-34); MEAN CORPUSCULAR HGB CONC 35 G/DL (32-36); MEAN CORPUSCULAR VOLUME 85 FL (80-99); MEAN PLATELET VOLUME 10.6 FL (7.4-10.4); MONOCYTES # (AUTO) 0.8 X 10^3 (0.0-1.0); MONOCYTES % (AUTO) 8 % (0-12); NEUTROPHILS # (AUTO) 5.4 X 10^3 (1.8-7.8); NEUTROPHILS % (AUTO) 52 % (42-75); PLATELET COUNT 324 10^3/uL (130-400); RED CELL DISTRIBUTION WIDTH 12.3 % (10.0-14.5); WHITE BLOOD COUNT 10.4 10^3/uL (4.3-11.0)
--- OUTSIDE RECORDS SUMMARY | 2019-01-22 20:57 | XMS REPORT ---
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 Name Role Phone LETTY WILKINS Unavailable PROBLEMS Type Condition ICD9-CM Code VDD85-UX Code Onset Dates Condition Status SNOMED Code Problem Family history of diabetes mellitus Z83.3 Active 185506701 Problem Hot flashes N95.1 Active 945129147 Problem Excessive and frequent menstruation with irregular cycle N92.1 Active 926846664 Problem Diverticulitis K57.92 Active 257372972 Problem Gastroesophageal reflux disease with esophagitis K21.0 Active 686783295 Problem Mitral valve prolapse I34.1 Active 169392499 Problem Perimenopausal N95.1 Active 562512392605352 Problem Tachycardia R00.0 Active 0289181 Problem Abnormal uterine bleeding (AUB) N93.9 Active 20682665883998 Problem History of diverticulitis Z87.19 Active 508444406758123 Problem History of colon polyps Z86.010 Active 713017239 Problem Generalized anxiety disorder F41.1 Active 121991686 Problem Dense breast tissue R92.2 Active 760072340 Problem Hypertension I10 Active 91953686 Problem History of ovarian cyst Z87.42 Active 76758602 ALLERGIES No Information ENCOUNTERS Encounter Location Date Diagnosis [facility] [address], [place] [address] Apr, [facility] [address], [place] [address] Apr, [facility] [address], [place] [address] Mar, [facility] [address], [place] [address] Mar, Hypertension I10 [place] [address], [place] [address] Mar, Generalized anxiety disorder F41.1 and Bereavement Z63.4 [facility] [id number] [place] [address] Feb, Generalized anxiety disorder F41.1 and Bereavement Z63.4 [facility] [id number] [place] [address] Feb, [facility] [id number] [place] [address] Feb, Generalized anxiety disorder F41.1 and Bereavement Z63.4 [facility] [id number] [place] [address] Feb, Generalized anxiety disorder F41.1 and Bereavement Z63.4 [facility] [id number] [place] [address] Jan, Hypertension I10 and Acute non-recurrent maxillary sinusitis J01.00 [facility] [id number] [place] [address] December, [facility] [id number] [place] [address] December, Hypertension I10 [facility] [address], [place] [address] December, Generalized anxiety disorder F41.1 [facility] [address] [id number], [place] [address] Oct, Encounter for dental examination Z01.20 [facility] [address] [id number], [place] [address] 06 Oct, 2017 Encounter for dental examination Z01.20 [facility] [address] [id number], [place] [address] Oct, Dental examination Z01.20 [facility] [address], [place] [address] Oct, Generalized anxiety disorder F41.1 [facility] [address] [id number], [place] [address] 30 Aug, 2017 Dental examination Z01.20 [facility] [id number], [place] [address] Aug, Generalized anxiety disorder F41.1 [facility] [id number] [place] [address] Aug, [facility] [id number] [place] [address] 09 Aug, 2017 Encounter for dental examination Z01.20 [facility] [id number] [place] [address] 08 Aug, 2017 Subacute maxillary sinusitis J01.00 [facility] [id number], [place] [address] Jul, Dental examination Z01.20 [facility] [id number] [place] [address] 19 Jul, 2017 Generalized anxiety disorder F41.1 [facility] [id number] [place] [address] 11 Jul, 2017 Diverticulitis K57.92 [facility] [address] [place] [address] 28 Jun, 2017 Encounter for immunization Z23 [facility] [address] [id number], [place] [address] 22 Jun, 2017 Dental examination Z01.20 [facility] [address], [place] [address] 14 Jun, 2017 Generalized anxiety disorder F41.1 [facility] [address] [id number], [place] [address] 07 Jun, 2017 Dental examination Z01.20 [facility] [address] [id number], [place] [address] May, [facility] [address] [id number] [address] May, Dental examination Z01.20 [facility] [address] [id number] [address] May, Dental examination Z01.20 [facility] [id number] [place] [address] May, Dental examination Z01.20 [facility] [address] [id number], [place] [address] May, [facility] [id number] [place] [address] May, Generalized anxiety disorder F41.1 [facility] [id number] [place] [address] May, Localized edema R60.0 ; Yeast vaginitis B37.3 and Gastroesophageal reflux disease with esophagitis K21.0 [facility] [id number] [place] [id number] Apr, Dental examination Z01.20 [facility] [address] [id number], [place] [address] Apr, Dental examination Z01.20 [facility] [address] [id number] [place] [address] 05 Apr, 2017 Dental examination Z01.20 [facility] [address], [place] [address] Mar, Dyspepsia R10.13 [facility] [id number] [place] [address] Mar, Generalized anxiety disorder F41.1 [facility] [address] [id number], [place] [address] Mar, Encounter for dental examination Z01.20 [facility] [address] [address] Mar, [facility] [id number] [place] [id number] Mar, Dental examination Z01.20 [facility] [id number] [place] [address] Feb, Hypertension I10 and Tachycardia R00.0 [facility] [address] [id number], [place] [address] Feb, [facility] [id number] [place] [address] Feb, Generalized anxiety disorder F41.1 [facility] [id number] [place] [id number] Feb, Dental examination Z01.20 [facility] [id number] [place] [address] Jan, Generalized anxiety disorder F41.1 [facility] [id number] [place] [address] December, Generalized anxiety disorder F41.1 [facility] [address] [place] [id number] December, Encounter for dental examination Z01.20 [facility] [id number] [place] [address] Nov, [facility] [id number] [place] [address] Nov, [facility] [id number] [place] [address] Nov, Generalized anxiety disorder F41.1 [facility] [address], [place] [address] Oct, [facility] [address] [address] Oct, Dental examination Z01.20 [facility] [id number] [place] [address] 27 Oct, 2016 Vaginal dryness N89.8 [place] [id number] [place] [address] Oct, Pseudoseizures F44.5 [place] [id number] [place] [address] Oct, Generalized anxiety disorder F41.1 [facility] [id number] [place] [address] Sep, Abnormal uterine bleeding (AUB) N93.9 ; Vaginal dryness N89.8 and Screening breast examination Z12.39 [place] [id number] [place] [address] 20 Sep, 2016 Dental examination Z01.20 [place] [id number] [place] [address] Sep, Generalized anxiety disorder F41.1 [place] [id number] [place] [address] 06 Sep, 2016 Unspecified ovarian cyst, right side N83.201 ; Unspecified ovarian cyst, left side N83.202 ; Yeast infection of the vagina B37.3 ; Mitral valve prolapse I34.1 and Hypertension I10 [place] [id number] [place] [address] Aug, Generalized anxiety disorder F41.1 [place] [id number] [place] [address] Jul, [place] [id number] [place] [address] Jul, Generalized anxiety disorder F41.1 [place] [id number] [place] [address] Jun, Generalized anxiety disorder F41.1 [place] [address] [place] [id number] [place] [address] 28 May, 2016 Encounter for immunization Z23 [facility] [address] [address] 17 May, 2016 Generalized anxiety disorder F41.1 and Depressive disorder, not elsewhere classified F32.9 [facility] [id number] [place] [address] 28 Apr, 2016 Hypertension I10 [facility] [address] [address] 22 Apr, 2016 Cervicalgia M54.2 [facility] [address] [address] 12 Apr, 2016 Cervicalgia M54.2 [facility] [id number] [place] [address] Mar, Generalized anxiety disorder F41.1 and Depressive disorder, not elsewhere classified F32.9 [facility] [address] [id number] Feb, Visit for dental examination Z01.20 [facility] [address] [address] Feb, Pseudoseizures F44.5 ; Migraine without status migrainosus, not intractable, unspecified migraine type G43.909 and Essential hypertension I10 [facility] [id number] [place] [id number] Feb, Dental examination Z01.20 [facility] [id number] [place] [address] Feb, Generalized anxiety disorder F41.1 and Depressive disorder, not elsewhere classified F32.9 [facility] [id number] [place] [address] Jan, Tachycardia R00.0 [facility] [id number] [place] [address] 24 May, 2016 Eustachian tube dysfunction, bilateral H69.83 [place] [id number] [place] [address] December, Generalized anxiety disorder F41.1 and Depressive disorder, not elsewhere classified F32.9 [place] [id number] [place] [address] Nov, [place] [id number] [place] [address] Nov, [place] [id number] [place] [address] Nov, Hypertension I10 ; Onychomycosis B35.1 ; [...] and Complex cyst of left ovary N83.29 [place] [id number] [place] [address] 14 Nov, 2015 Sinusitis J32.9 [place] [address] [place] [address] Oct, Complex cyst of left ovary N83.29 [place] [id number] [place] [address] Oct, Onychomycosis B35.1 [facility] [address] [place] [id number] Oct, Dental examination Z01.20 [place] [id number] [place] [address] 09 Oct, 2015 Well woman exam Z01.419 [...] R92.2 and History of colon polyps Z86.010 [place] [id number] [place] [address] 03 Oct, 2016 Generalized anxiety disorder F41.1 and Depressive disorder, not elsewhere classified F32.9 [place] [address] [address] Sep, Hypertension I10 and Onychomycosis B35.1 [place] [id number] [place] [address] 16 Sep, 2015 Skin tags, multiple acquired L91.8 [place] [address] [address] Aug, [place] [address] [address] Aug, [place] [id number] [place] [address] Aug, [place] [id number] [place] [address] Aug, Generalized anxiety disorder F41.1 and Depressive disorder, not elsewhere classified F32.9 [place] [id number] [place] [address] Jul, Skin lesion L98.9 [place] [address] [address] Jun, Generalized anxiety disorder F41.1 and Depressive disorder, not elsewhere classified F32.9 [place] [id number] [place] [address] Jun, [place] [address] [place] [address] Jun, Generalized anxiety disorder F41.1 [facility] [id number] [place] [address] May, Encounter for immunization Z23 and Right shoulder pain M25.511 [facility] [address] [place] [address] Apr, [facility] [id number] [place] [address] 14 Apr, 2015 Generalized anxiety disorder 300.02 and Depressive disorder, not elsewhere classified 311 [facility] [address] [id number] Mar, Dental examination V72.2 [facility] [id number] [place] [address] Mar, Generalized anxiety disorder 300.02 and Depressive disorder, not elsewhere classified 311 [facility] [address] [place] [address] Mar, Depression, major, recurrent, 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.35 and 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 [facility] [address] [place] [address] Feb, Generalized anxiety disorder 300.02 and Depressive disorder, not elsewhere classified 311 [facility] [address] [place] [id number] Feb, Dental examination V72.2 [facility] [id number] [place] [address] Jan, Generalized anxiety disorder 300.02 and Depressive disorder, not elsewhere classified 311 [facility] [address] [place] [address] Jan, [facility] [address] [place] [address] December, Generalized anxiety disorder 300.02 and Depressive disorder, not elsewhere classified 311 [facility] [address], [place] [address] December, Major depressive disorder, recurrent, unspecified 296.30 and Panic disorder with agoraphobia 300.21 [facility] [address] [place] [address] 14 Nov, 2014 [facility] [address], [place] [address] Nov, [facility] [address], [place] [address] Oct, [facility] [id number] [place] [address] Oct, [facility] [address], [place] [address] Oct, [facility] [id number] [place] [address] Oct, [facility] [address], [place] [address] Sep, [facility] [address], [place] [address] Sep, [facility] [address], [place] [address] Sep, [facility] [address], [place] [address] Sep, [facility] [address], [place] [address] Sep, [facility] [address], [place] [address] Sep, [facility] [address], [place] [address] Sep, [facility] [address], [place] [address] Sep, 2014 [facility] [place] [facility] [address] [id number] [place] [address] Sep, [facility] [place] [facility] [address] [id number] [place] [address] Sep, [facility] [place] [facility] [address] [facility] [id number] [place] [address] Aug, [facility] [place] [facility] [address] [id number] [place] [address] Aug, [facility] [place] [facility] [address] [id number] [place] [address] Jul, [facility] [place] [facility] [address] [facility] [id number] [place] [address] Jul, [facility] [place] [facility] [address] [facility] [id number] [place] [address] Jul, [facility] [place] [facility] [address] [id number] [place] [address] Jul, [facility] [place] [facility] [address] [id number] [place] [address] Jul, [facility] [place] [facility] [address] [facility] [id number] [place] [address] Jul, [facility] [place] [facility] [address] [facility] [id number] [place] [address] 05 Jul, 2014 [facility] [place] [facility] [address] [id number], [place] [address] 05 Jul, 2014 [facility] [place] [facility] [address] [id number] [place] [address] Jul, [facility] [place] [facility] [address] [facility] [id number] [place] [address] 04 Jul, 2014 [facility] [place] [facility] [address] [facility] [id number] [place] [address] Jul, [facility] [place] [facility] [address] [id number] [place] [address] Jul, [facility] [place] [facility] [address] [id number] [place] [address] Jun, [facility] [place] [facility] [address] [id number] [place] [address] Jun, [facility] [place] [facility] [address] [id number] [place] [address] May, [facility] [place] [facility] [address] [id number] [place] [address] May, [facility] [place] [facility] [address] [id number] [place] [address] May, [facility] [place] [facility] [address] [id number] [place] [address] May, [facility] [place] [facility] [address] [id number] [place] [address] May, [facility] [place] [facility] [address] [id number] [place] [address] May, [facility] [place] [facility] [address] [id number] [place] [address] May, [facility] [place] [facility] [address] [id number] [place] [address] May, [facility] [place] [facility] [address] [id number] [place] [address] May, [facility] [place] [facility] [address] [id number] [place] [address] May, [facility] [place] [facility] [address] [id number] [place] [address] May, [facility] [place] [facility] [address] [id number] [place] [address] May, [facility] [place] [facility] [address] [id number] [place] [address] Apr, [facility] [place] [facility] [address] [id number] [place] [address] 30 Apr, 2013 [facility] [place] [facility] [address] [id number] [place] [address] Apr, [facility] [place] [facility] [address] [id number] [place] [address] Apr, [facility] [place] [facility] [address] [id number] [place] [address] Apr, [facility] [place] [facility] [address] [id number] [place] [address] Apr, [facility] [place] [facility] [address] [id number] [place] [address] Feb, [facility] [place] [facility] [address] [id number] [place] [address] Feb, [facility] [place] [facility] [address] [id number] [place] [address] Feb, [facility] [place] [facility] [address] [id number] [place] [address] Feb, [facility] [place] [facility] [address] [id number] [place] [address] Feb, [facility] [place] [facility] [address] [id number] [place] [address] Feb, [facility] [place] [facility] [address] [id number] [address] Jan, [facility] [place] [facility] [address] [id number] [place] [address] Jan, [facility] [place] [facility] [address] [id number] [place] [address] Jan, [facility] [place] [facility] [address] [id number] [place] [address] Jan, [facility] [place] [facility] [address] [id number] [place] [address] Jan, [facility] [place] [facility] [address] [id number] [place] [address] Jan, [facility] [place] [facility] [address] [id number] [place] [address] Jan, [facility] [place] [facility] [address] [id number] [place] [address] Jan, [facility] [place] [facility] [address] [id number] [place] [address] December, [facility] [place] [facility] [address] [id number] [place] [address] December, [facility] [place] [facility] [address] [id number] [place] [address] December, [facility] [place] [facility] [address] [id number] [place] [address] December, [facility] [place] [facility] [address] [id number] [place] [address] Nov, [facility] [place] [facility] [address] [id number] [place] [address] Nov, [facility] [place] [facility] [address] [id number] [place] [address] Nov, [facility] [place] [facility] [address] [id number] [place] [address] Nov, [facility] [place] [facility] [address] [id number] [place] [address] Nov, [facility] [place] [facility] [address] [id number] [place] [address] Nov, [facility] [place] [facility] [address] [id number] [place] [address] Nov, [facility] [place] [facility] [address] [id number] [place] [address] Nov, [facility] [place] [facility] [address] [id number] [place] [address] Oct, [facility] [place] [facility] [address] [id number] [place] [address] Oct, [facility] [place] [facility] [address] [id number] [place] [address] Sep, [facility] [place] [facility] [address] [id number] [place] [address] Sep, [facility] [place] [facility] [address] [id number] [place] [id number] Sep, [facility] [place] [facility] [address] [id number] [place] [address] Sep, [facility] [place] [facility] [address] [id number] [place] [address] Sep, [facility] [place] [facility] [address] [id number] [place] [address] Sep, [facility] [place] [facility] [address] [id number] [place] [address] Aug, [facility] [place] [facility] [address] [id number] [place] [address] Aug, [facility] [place] [facility] [address] [id number] [place] [address] Aug, [facility] [place] [facility] [address] [id number] [place] [address] Aug, [facility] [place] [facility] [address] [id number] [place] [address] Jul, [facility] [place] [facility] [address] [id number] [place] [address] Jul, [facility] [place] [facility] [address] [id number] [place] [address] Jul, [facility] [place] [facility] [address] [id number] [place] [address] Jul, [facility] [place] [facility] [address] [id number] [place] [address] Jun, [facility] [place] [facility] [address] [id number] [place] [address] Jun, [facility] [place] [facility] [address] [id number] [place] [address] May, [facility] [place] [facility] [address] [id number] [place] [address] May, [facility] [place] [facility] [address] [id number] [place] [address] May, [facility] [place] [facility] [address] [id number] [place] [address] May, [facility] [place] [facility] [address] [id number] [place] [address] May, [facility] [place] [facility] [address] [id number] [place] [address] Apr, [facility] [place] [facility] [address] [id number] [place] [address] Apr, [facility] [place] [facility] [address] [id number] [place] [address] Mar, [facility] [place] [facility] [address] [id number] [place] [address] Mar, [facility] [place] [facility] [address] [id number] [place] [address] Mar, [facility] [place] [facility] [address] [id number] [place] [address] Mar, [facility] [place] [facility] [address] [id number] [place] [address] Feb, [facility] [place] [facility] [address] [id number] [place] [address] Feb, [facility] [place] [facility] [address] [id number] [place] [address] 16 Feb, 2013 [facility] [address] [id number] [place] [address] Feb, [facility] [address] [id number] [place] [address] 10 Feb, 2013 [facility] [address] [id number] [place] [address] Jan, [facility] [address] [id number] [place] [address] Jan, [facility] [address] [id number] [place] [address] Jan, [facility] [address] [id number] [place] [address] Jan, [facility] [address] [id number] [place] [address] Jan, [facility] [address] [id number] [place] [address] December, [facility] [address] [id number] [place] [address] December, [facility] [address] [id number] [place] [address] Nov, [facility] [address] [id number] [place] [address] Nov, [facility] [address] [id number] [place] [address] Oct, [facility] [address] [id number] [place] [address] Oct, [facility] [address] [id number] [place] [address] 05 Oct, 2012 [facility] [address] [id number] [place] [address] 14 Sep, 2012 [facility] [address] [id number] [place] [address] Aug, [facility] [place] [facility] [address] [id number] [place] [address] Aug, [facility] [place] [facility] [address] [id number] [place] [address] Aug, [facility] [place] [facility] [address] [id number] [place] [address] Aug, [facility] [place] [facility] [address] [id number] [place] [address] Jul, [facility] [place] [facility] [address] [id number] [place] [address] Jul, [facility] [place] [facility] [address] [id number] [place] [address] Jul, [facility] [place] [facility] [address] [id number] [place] [address] Jul, [facility] [place] [facility] [address] [id number] [place] [address] Jul, [facility] [place] [facility] [address] [facility] [id number] [address] Jul, [facility] [place] [facility] [address] [facility] [address] [id number] [address] Jul, [facility] [place] [facility] [address] [id number], [place] [address] Jul, [facility] [place] [facility] [address] [id number] [place] [address] Jun, [facility] [place] [facility] [address] [id number] [place] [address] Jun, [facility] [place] [facility] [address] [facility] [address] [id number], [place] [address] Jun, [facility] [place] [facility] [address] [id number], [place] [address] Jun, [facility] [place] [facility] [address] [id number] [place] [address] Jun, [facility] [place] [facility] [address] [facility] [address] [id number], [place] [address] Jun, [facility] [place] [facility] [id number] [place] [address] May, [facility] [place] [facility] [address] [facility] [id number] [place] [address] May, [facility] [place] [facility] [address] [facility] [id number] [place] [address], [place] [address] May, [facility] [place] [facility] [address] [facility] [id number] [place] [address] May, [facility] [place] [facility] [address]65[place], [place] [address] Apr, [facility] [place] [facility] [address] [facility] [id number] [place] [address] Apr, [facility] [place] [facility] [id number] [place] [address] Mar, [facility] [place] [facility] [address] [id number] [place] [address] Jan, [facility] [place] [facility] [address]65[address], [place] [address] Jan, [facility] [place] [facility] [address] [facility] [address] [id number], [place] [address] 16 Jan, 2012 [facility] [place] [facility] [address] [facility] [address] [id number], [place] [address] 15 Jan, 2012 [facility] [place] [facility] [address] [facility] [address] [id number], [place] [address] 14 Jan, 2012 [facility] [place] [facility] [address], [place] [address] 14 Jan, 2012 [facility] [place] [facility] [address] [id number] [place] [address] Jan, [facility] [place] [facility] [address] [id number] [place] [address] December, [facility] [place] [facility] [address] [id number] [place] [address] December, [facility] [place] [facility] [address] [id number] [place] [address] December, [facility] [place] [facility] [address] [id number] [place] [address] December, [facility] [place] [facility] [address] [id number] [place] [address] Nov, [facility] [place] [facility] [address] [id number] [place] [address] Nov, [facility] [place] [facility] [address] [id number] [place] [address] Oct, [facility] [place] [facility] [address] [id number] [place] [address] Oct, [facility] [place] [facility] [address] [id number] [place] [address] Oct, [facility] [place] [facility] [address] [id number] [place] [address] Sep, [facility] [place] [facility] [address] [id number] [place] [address] Sep, [facility] [place] [facility] [address] [id number] [place] [address] Sep, [facility] [place] [facility] [address] [id number] [place] [address] Aug, [facility] [place] [facility] [address] [id number] [place] [address] Aug, [facility] [place] [facility] [address] [id number] [place] [address] Aug, [facility] [place] [facility] [address] [id number] [place] [address] Aug, [facility] [place] [facility] [address] [id number] [place] [address] Aug, [facility] [place] [facility] [address] [id number] [place] [address] Aug, [facility] [place] [facility] [address] [id number] [place] [address] Aug, [facility] [place] [facility] [address] [id number] [place] [address] Jul, [facility] [place] [facility] [address] [id number] [place] [address] Jul, [facility] [place] [facility] [address] [id number] [place] [address] 30 Jun, 2011 [facility] [place] [facility] [address] [id number] [place] [address] 28 Jun, 2011 [facility] [place] [facility] [address] [id number] [place] [address] 17 Jun, 2011 [facility] [place] [facility] [address] [id number] [place] [address] 15 Jun, 2011 [facility] [place] [facility] [address] [id number], [place] [address] 14 Jun, 2011 [facility] [place] [facility] [address] [id number], [place] [address] 14 Jun, 2011 [facility] [place] [facility] [address] [id number] [place] [address] 07 Jun, 2011 [facility] [place] [facility] [address] [id number] [place] [address] 07 Jun, 2011 [facility] [place] [facility] [address] [id number], [place] [address] 02 Jun, 2011 [facility] [place] [facility] [address] [id number] [place] [address] 02 Jun, 2011 [facility] [address] [id number] [place] [address] May, [facility] [address] [id number] [place] [address] 31 May, 2011 [facility] [address] [id number] [place] [address] May, [facility] [address] [id number] [place] [address] 24 May, 2011 [facility] [address] [id number] [place] [address], [place] [address] 18 May, 2011 [facility] [address] [id number] [place] [address] May, [facility] [address] [id number] [place] [address] Feb, [facility] [address] [id number] [place] [address] December, [facility] [address] [id number] [place] [address] 29 Jul, 2010 [facility] [address] [id number] [place] [address] 29 Jul, 2010 [facility] [place] [facility] [address] [id number] [place] [address] 22 Jul, 2010 [facility] [address] [id number] [place] [address] 21 Jul, 2010 [facility] [place] [facility] [address] [id number] [place] [address] 15 Jun, 2010 [facility] [place] [facility] [address] [id number] [place] [address] 31 Jul, 2009 [facility] [place] [facility] [address] [id number] [place] [address] Jul, [facility] [address] [facility] [id number], [place] [address] Jul, [facility] [address] [id number] [address] Jul, [facility] [address] [id number] [address] Jul, [facility] [address], [place] [address] Jul, [facility] [address] [id number], [place] [address] Jan, [facility] [address], [place] [address] Sep, [facility] [address] [id number], [place] [address] Sep, IMMUNIZATIONS No Known Immunizations SOCIAL HISTORY Never Assessed REASON FOR VISIT Med Change Request PLAN OF CARE VITAL SIGNS MEDICATIONS Medication Instructions Dosage Frequency Start Date End Date Duration Status Inderal LA 120 MG Orally Once a day. Take along with the 80mg Capsule 1 capsule December, 90 days Active Inderal [place] 80 MG Orally Once [...]
--- OUTSIDE RECORDS SUMMARY | 2019-01-22 20:58 | XMS REPORT ---
Author Author KVNG MERCHANT [facility] Address [address] [place] [address] Care Team Providers Care Human Resources Benefits Manager Name Role Phone KVNG MERCHANT Unavailable PROBLEMS Type Condition ICD9-CM Code CWP09-PD Code Onset Dates Condition Status SNOMED Code Problem Family history of diabetes mellitus Z83.3 Active 590768140 Problem Hot flashes N95.1 Active 594827246 Problem Excessive and frequent menstruation with irregular cycle N92.1 Active 424232977 Problem Diverticulitis K57.92 Active 126683829 Problem Gastroesophageal reflux disease with esophagitis K21.0 Active 042109721 Problem Mitral valve prolapse I34.1 Active 988290009 Problem Perimenopausal N95.1 Active 304687001919273 Problem Tachycardia R00.0 Active 7333343 Problem Abnormal uterine bleeding (AUB) N93.9 Active 84258688518104 Problem History of diverticulitis Z87.19 Active 717203492628124 Problem History of colon polyps Z86.010 Active 852819380 Problem Generalized anxiety disorder F41.1 Active 946424593 Problem Dense breast tissue R92.2 Active 716024654 Problem Hypertension I10 Active 36793065 Problem History of ovarian cyst Z87.42 Active [id number] ALLERGIES No Information ENCOUNTERS Encounter Location Date Diagnosis [facility] [address] [facility] [id number], [place] [address] Apr, [facility] [place] [address] [facility] [id number], [place] [address] Apr, [facility] [address] [id number], [place] [address] Mar, [facility] [place] [address] [facility] [id number], [place] [address] Mar, Generalized anxiety disorder F41.1 and Bereavement Z63.4 [facility] [place] [address] [facility] [id number], [place] [address] Feb, Generalized anxiety disorder F41.1 and Bereavement Z63.4 [facility] [place] [address] [facility] [id number], [place] [address] Feb, [facility] [place] [id number] [place] [address] Feb, Generalized anxiety disorder F41.1 and Bereavement Z63.4 [facility] [place] [id number] [place] [address] Feb, Generalized anxiety disorder F41.1 and Bereavement Z63.4 [facility] [place] [id number] [place] [address] Jan, Hypertension I10 and Acute non-recurrent maxillary sinusitis J01.00 [facility] [place] [id number] [place] [address] December, [facility] [id number] [place] [address] December, Hypertension I10 [facility] [place] [id number] [place] [address] December, Generalized anxiety disorder F41.1 [facility] [address] [id number], [place] [address] Oct, Encounter for dental examination Z01.20 [facility] [address] [id number], [place] [address] Oct, Encounter for dental examination Z01.20 [facility] [address] [id number], [place] [address] Oct, Dental examination Z01.20 [facility] [place] [address] [id number], [place] [address] Oct, Generalized anxiety disorder F41.1 [facility] [address] [id number], [place] [address] 30 Aug, 2017 Dental examination Z01.20 [facility] [place] [id number] [place] [address] Aug, Generalized anxiety disorder F41.1 [facility] [place] [address] [id number], [place] [address] Aug, [facility] [id number] [place] [address] 09 Aug, 2017 Encounter for dental examination Z01.20 [facility] [id number] [place] [address] 08 Aug, 2017 Subacute maxillary sinusitis J01.00 [facility] [id number] [place] [address] 22 Jul, 2017 Dental examination Z01.20 [facility] [place] [id number] [place] [address] 19 Jul, 2017 Generalized anxiety disorder F41.1 [facility] [place] [id number] [place] [address] 11 Jul, 2017 Diverticulitis K57.92 [facility] [id number] [place] [address] 28 Jun, 2017 Encounter for immunization Z23 [facility] [id number], [place] [address] 22 Jun, 2017 Dental examination Z01.20 [facility] [address] [facility] [id number], [place] [address] 14 Jun, 2017 Generalized anxiety disorder F41.1 [facility] [address] [id number], [place] [address] 07 Jun, 2017 Dental examination Z01.20 [facility] [place] [address] [id number], [place] [address] 30 May, 2017 [facility] [address] [id number] [id number] May, Dental examination Z01.20 [facility] [id number] [place] [id number] May, Dental examination Z01.20 [facility] [address] [id number], [place] [address] May, Dental examination Z01.20 [facility] [place] [id number] [place] [address] May, [facility] [id number] [place] [address] May, Generalized anxiety disorder F41.1 [facility] [place] [id number] [place] [address] May, Localized edema R60.0 ; Yeast vaginitis B37.3 and Gastroesophageal reflux disease with esophagitis K21.0 [facility] [id number] [place] [id number] Apr, Dental examination Z01.20 [facility] [address] [id number], [place] [address] Apr, Dental examination Z01.20 [facility] [id number] [place] [address] Apr, Dental examination Z01.20 [facility] [place] [id number] [place] [address] Mar, Dyspepsia R10.13 [facility] [place] [address], [place] [address] Mar, Generalized anxiety disorder F41.1 [facility] [id number] [place] [address] Mar, Encounter for dental examination Z01.20 [facility] [id number] [place] [id number] Mar, [facility] [address] [id number] Mar, Dental examination Z01.20 [facility] [place] [id number] [place] [address] Feb, Hypertension I10 and Tachycardia R00.0 [facility] [address] [id number], [place] [address] Feb, [facility] [place] [id number] [place] [address] Feb, Generalized anxiety disorder F41.1 [facility] [id number] [place] [address] [id number] Feb, Dental examination Z01.20 [facility] [place] [id number] [place] [address] Jan, Generalized anxiety disorder F41.1 [facility] [place] [id number] [place] [address] December, Generalized anxiety disorder F41.1 [facility] [id number] [place] [id number] December, Encounter for dental examination Z01.20 [facility] [place] [id number] [place] [address] Nov, [facility] [id number] [place] [address] Nov, [facility] [id number] [place] [address] Nov, Generalized anxiety disorder F41.1 [facility] [place] [id number] [place] [address] Oct, [facility] [id number] [place] [id number] Oct, Dental examination Z01.20 [facility] [place] [id number] [place] [address] Oct, Vaginal dryness N89.8 [address] [id number] [place] [address] Oct, Pseudoseizures F44.5 [place] [id number] [place] [address] Oct, Generalized anxiety disorder F41.1 [place] [address] [address] Sep, Abnormal uterine bleeding (AUB) N93.9 ; Vaginal dryness N89.8 and Screening breast examination Z12.39 [place] [address] [address] 20 Sep, 2016 Dental examination Z01.20 [address] [address] [address] 20 Sep, 2016 Generalized anxiety disorder F41.1 [place] [address] [address] 06 Sep, 2016 Unspecified ovarian cyst, right side N83.201 ; Unspecified ovarian cyst, left side N83.202 ; Yeast infection of the vagina B37.3 ; Mitral valve prolapse I34.1 and Hypertension I10 [place] [id number] [place] [address] Aug, Generalized anxiety disorder F41.1 [address] [address] [address] Jul, [address] [address] [address] Jul, Generalized anxiety disorder F41.1 [place] [address] [address] Jun, Generalized anxiety disorder F41.1 [place] [id number] [place] [address] May, Encounter for immunization Z23 [place] [address] [place] [address] 17 May, 2016 Generalized anxiety disorder F41.1 and Depressive disorder, not elsewhere classified F32.9 [facility] [id number] [place] [address] 28 Apr, 2016 Hypertension I10 [facility] [id number] [place] [address] 22 Apr, 2016 Cervicalgia M54.2 [facility] [id number] [place] [address] 12 Apr, 2016 Cervicalgia M54.2 [facility] [place] [id number] [place] [address] Mar, Generalized anxiety disorder F41.1 and Depressive disorder, not elsewhere classified F32.9 [facility] [address] [id number] 14 Feb, 2016 Visit for dental examination Z01.20 [facility] [place] [id number] [place] [address] 11 Feb, 2016 Pseudoseizures F44.5 ; Migraine without status migrainosus, not intractable, unspecified migraine type G43.909 and Essential hypertension I10 [facility] [id number] [place] [address] [id number] Feb, Dental examination Z01.20 [facility] [place] [id number] [place] [address] Feb, Generalized anxiety disorder F41.1 and Depressive disorder, not elsewhere classified F32.9 [facility] [place] [id number] [place] [address] Jan, Tachycardia R00.0 [facility] [place] [id number] [place] [address] December, Eustachian tube dysfunction, bilateral H69.83 [facility] [place] [id number] [place] [address] December, Generalized anxiety disorder F41.1 and Depressive disorder, not elsewhere classified F32.9 [facility] [place] [id number] [place] [address] Nov, [place] [id number] [place] [address] Nov, [place] [id number] [place] [address] Nov, Hypertension I10 ; Onychomycosis B35.1 ; [...] and Complex cyst of left ovary N83.29 [place] [id number] [place] [address] Nov, Sinusitis J32.9 [place] [id number] [place] [address] Oct, Complex cyst of left ovary N83.29 [place] [id number] [place] [address] Oct, Onychomycosis B35.1 [facility] [id number] [place] [address] [phone] Oct, Dental examination Z01.20 [place] [id number] [place] [address] Oct, Well woman exam Z01.419 ; Encounter [...] R92.2 and History of colon polyps Z86.010 [place] [id number] [place] [address] Oct, Generalized anxiety disorder F41.1 and Depressive disorder, not elsewhere classified F32.9 [place] [address] [address] Sep, Hypertension I10 and Onychomycosis B35.1 [place] [address] [address] Sep, Skin tags, multiple acquired L91.8 [place] [id number] [place] [address] Aug, [place] [address] [address] Aug, [place] [id number] [place] [address] Aug, [place] [address] [address] Aug, Generalized anxiety disorder F41.1 and Depressive disorder, not elsewhere classified F32.9 [place] [id number] [place] [address] Jul, Skin lesion L98.9 [facility] [id number] [place] [address] Jun, Generalized anxiety disorder F41.1 and Depressive disorder, not elsewhere classified F32.9 [place] [id number] [place] [address] Jun, [place] [id number] [place] [address] Jun, Generalized anxiety disorder F41.1 [place] [address] [place] [address] May, Encounter for immunization Z23 and Right shoulder pain M25.511 [facility] [place] [id number] [place] [address] Apr, [facility] [place] [id number] [place] [address] 14 Apr, 2015 Generalized anxiety disorder 300.02 and Depressive disorder, not elsewhere classified 311 [facility] [id number] [place] [address] [id number] Mar, Dental examination V72.2 [facility] [place] [id number] [place] [address] Mar, Generalized anxiety disorder 300.02 and Depressive disorder, not elsewhere classified 311 [facility] [id number] [place] [address] Mar, Depression, major, recurrent, 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.35 and 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 [facility] [id number] [place] [address] Feb, Generalized anxiety disorder 300.02 and Depressive disorder, not elsewhere classified 311 [facility] [id number] [place] [address] [id number] Feb, Dental examination V72.2 [facility] [place] [id number] [place] [address] Jan, Generalized anxiety disorder 300.02 and Depressive disorder, not elsewhere classified 311 [facility] [id number] [place] [address] Jan, [facility] [id number] [place] [address] December, Generalized anxiety disorder 300.02 and Depressive disorder, not elsewhere classified 311 [facility] [id number] [place] [address] December, Major depressive disorder, recurrent, unspecified 296.30 and Panic disorder with agoraphobia 300.21 [facility] [address], [place] [address] 14 Nov, 2014 [facility] [address], [place] [address] 13 Nov, 2014 [facility] [address], [place] [address] Oct, [facility] [address], [place] [address] Oct, [facility] [address], [place] [address] Oct, [facility] [address], [place] [address] Oct, [facility] [address], [place] [address] Sep, [facility] [address], [place] [address] Sep, [facility] [address], [place] [address] Sep, [facility] [address], [place] [address] Sep, [facility] [address], [place] [address] Sep, 2014 [facility] [place] [facility] [address], [place] [address] Sep, [facility] [place] [facility] [address], [place] [address] Sep, [facility] [place] [facility] [address], [place] [address] Sep, [facility] [place] [facility] [address], [place] [address] Sep, [facility] [place] [facility] [address] [id number] [place] [address] Sep, [facility] [place] [facility] [address] [id number] [place] [address] Aug, [facility] [place] [facility] [address] [id number] [place] [address] Aug, [facility] [place] [facility] [address] [id number] [place] [address] Jul, [facility] [place] [facility] [address] [id number] [place] [address] Jul, [facility] [place] [facility] [address] [id number] [place] [address] Jul, [facility] [place] [facility] [address] [id number] [place] [address] Jul, [facility] [place] [facility] [address] [id number] [place] [address] Jul, [facility] [place] [facility] [address] [id number] [place] [address] Jul, [facility] [place] [facility] [address] [id number] [place] [address] Jul, [facility] [place] [facility] [address] [id number] [place] [address] Jul, [facility] [place] [facility] [address] [id number] [place] [address] Jul, [facility] [place] [facility] [address] [id number] [place] [address] Jul, [facility] [place] [facility] [address] [id number] [place] [address] Jul, [facility] [place] [facility] [address] [id number] [place] [address] Jul, [facility] [place] [facility] [address] [id number], [place] [address] Jun, [facility] [place] [facility] [address] [id number] [place] [address] Jun, [facility] [place] [facility] [address] [id number] [place] [address] May, [facility] [place] [facility] [address] [id number] [place] [address] May, [facility] [place] [facility] [address] [id number] [place] [address] May, [facility] [place] [facility] [address] [id number] [place] [address] May, [facility] [place] [facility] [address] [id number] [place] [address] May, [facility] [place] [facility] [address] [id number] [place] [address] May, [facility] [place] [facility] [address] [id number] [place] [address] May, [facility] [place] [facility] [address] [id number] [place] [address] May, [facility] [place] [facility] [address] [id number] [place] [address] May, [facility] [place] [facility] [address] [id number], [place] [address] May, [facility] [place] [facility] [address] [id number], [place] [address] May, [facility] [place] [facility] [address] [id number] [place] [address] May, [facility] [place] [facility] [address] [id number], [place] [address] Apr, [facility] [place] [facility] [address] [id number] [place] [address] 30 Apr, 2014 [facility] [place] [facility] [address] [id number] [place] [address] Apr, [facility] [place] [facility] [address] [id number] [place] [address] Apr, [facility] [place] [facility] [address] [id number] [place] [address] Apr, [facility] [place] [facility] [address] [id number] [place] [address] Apr, [facility] [place] [facility] [address] [id number] [place] [address] Feb, [facility] [place] [facility] [address] [id number] [place] [address] Feb, [facility] [place] [facility] [address] [id number] [place] [address] Feb, [facility] [place] [facility] [address] [id number] [place] [address] Feb, [facility] [place] [facility] [address] [id number] [place] [address] Feb, [facility] [place] [facility] [address] [id number] [place] [address] Feb, [facility] [place] [facility] [address] [id number] [place] [address] Jan, [facility] [place] [facility] [address] [id number] [place] [address] Jan, [facility] [place] [facility] [address] [id number] [place] [address] Jan, [facility] [place] [facility] [address] [id number] [place] [address] Jan, [facility] [place] [facility] [address] [id number] [place] [address] Jan, [facility] [place] [facility] [address] [id number] [place] [address] Jan, [facility] [place] [facility] [address] [id number] [place] [address] Jan, [facility] [place] [facility] [address] [id number] [place] [address] Jan, [facility] [place] [facility] [address] [id number] [place] [address] December, [facility] [place] [facility] [address] [id number] [place] [address] December, [facility] [place] [facility] [address] [id number] [place] [address] December, [facility] [place] [facility] [address] [id number] [place] [address] December, [facility] [place] [facility] [address] [id number] [place] [address] Nov, [facility] [place] [facility] [address] [id number] [place] [address] Nov, [facility] [place] [facility] [address] [id number] [place] [address] Nov, [facility] [place] [facility] [address] [id number] [place] [address] Nov, [facility] [place] [facility] [address] [id number] [place] [address] Nov, [facility] [place] [facility] [address] [id number] [place] [address] Nov, [facility] [place] [facility] [address] [id number] [place] [address] Nov, [facility] [place] [facility] [address] [id number] [place] [address] Nov, [facility] [place] [facility] [address] [id number] [place] [address] Oct, [facility] [place] [facility] [address] [id number] [place] [address] Oct, [facility] [address] [id number] [place] [address] Sep, [facility] [place] [facility] [address] [id number] [place] [address] Sep, [facility] [place] [facility] [address] [id number] [place] [id number] Sep, [facility] [place] [facility] [address] [id number] [place] [address] Sep, [facility] [place] [facility] [address] [id number] [place] [address] Sep, [facility] [place] [facility] [address] [id number] [place] [address] Sep, [facility] [place] [facility] [address] [id number] [place] [address] Aug, [facility] [address] [id number] [place] [address] Aug, [facility] [place] [facility] [address] [id number] [place] [address] Aug, [facility] [place] [facility] [address] [facility] [id number] [place] [address] Aug, [facility] [place] [facility] [address] [id number] [place] [address] Jul, [facility] [place] [facility] [address] [id number] [place] [address] Jul, [facility] [place] [facility] [address] [id number] [place] [address] Jul, [facility] [place] [facility] [address] [id number] [place] [address] Jul, [facility] [place] [facility] [address] [facility] [id number] [place] [address] Jun, [facility] [place] [facility] [address] [id number] [place] [address] Jun, [facility] [place] [facility] [address] [id number] [place] [address] May, [facility] [place] [facility] [address] [id number] [place] [address] May, [facility] [place] [facility] [address] [id number] [place] [address] May, [facility] [place] [facility] [address] [id number] [place] [address] May, [facility] [place] [facility] [address] [id number] [place] [address] May, [facility] [place] [facility] [address] [id number] [place] [address] Apr, [facility] [place] [facility] [address] [id number] [place] [address] Apr, [facility] [place] [facility] [address] [id number] [place] [address] Mar, [facility] [place] [facility] [address] [id number] [place] [address] Mar, [facility] [place] [facility] [address] [id number] [place] [address] Mar, [facility] [place] [facility] [address] [id number] [place] [address] Mar, [facility] [place] [facility] [address] [id number] [place] [address] Feb, [facility] [place] [facility] [address] [id number] [place] [address] Feb, [facility] [place] [facility] [address] [id number] [place] [address] Feb, [facility] [place] [facility] [address] [id number], [place] [address] Feb, [facility] [address] [id number] [place] [address] Feb, [facility] [place] [facility] [address] [id number] [place] [address] Jan, [facility] [place] [facility] [address] [id number] [place] [address] Jan, [facility] [place] [facility] [address] [id number] [place] [address] Jan, [facility] [place] [facility] [address] [id number] [place] [address] Jan, [facility] [place] [facility] [address] [id number] [place] [address] Jan, [facility] [address] [facility] [id number] [place] [address] December, [facility] [place] [facility] [address] [id number] [place] [address] December, [facility] [address] [id number] [place] [address] Nov, [facility] [place] [facility] [address] [id number] [place] [address] Nov, [facility] [place] [facility] [address] [id number] [place] [address] Oct, [facility] [place] [facility] [address] [id number] [place] [address] Oct, [facility] [place] [facility] [address] [id number] [place] [address] 05 Oct, 2012 [facility] [place] [facility] [address] [id number] [place] [address] 14 Sep, 2012 [facility] [place] [facility] [address] [id number] [place] [address] 24 Aug, 2012 [facility] [place] [facility] [address] [id number] [place] [address] 16 Aug, 2012 [facility] [address] [id number] [place] [address] 15 Aug, 2012 [facility] [place] [facility] [address] [id number] [place] [address] 02 Aug, 2012 [facility] [place] [facility] [address] [id number] [place] [address] Jul, [facility] [place] [facility] [address] [id number] [place] [address] Jul, [facility] [place] [facility] [address] [id number] [place] [address] Jul, [facility] [place] [facility] [address] [id number] [place] [address] Jul, [facility] [place] [facility] [address] [id number] [place] [address] Jul, [facility] [place] [facility] [address] [id number] [place] [address] Jul, [facility] [place] [facility] [address] [id number] [place] [address] Jul, [facility] [place] [facility] [address] [id number] [place] [address] Jul, [facility] [place] [facility] [address] [id number] [place] [address] Jun, [facility] [place] [facility] [address] [id number] [place] [address] Jun, [facility] [place] [facility] [address] [id number] [place] [address] Jun, [facility] [place] [facility] [address] [id number] [place] [address] Jun, [facility] [place] [facility] [address] [id number] [place] [address] Jun, [facility] [place] [facility] [address] [id number] [place] [address] Jun, [facility] [place] [facility] [address] [id number] [place] [address] May, [facility] [place] [facility] [address] [id number] [place] [address] May, [facility] [place] [facility] [address] [id number] [place] [address] May, [facility] [place] [facility] [address] [id number] [place] [address] May, [facility] [place] [facility] [address] [id number] [place] [address] 26 Apr, 2012 [facility] [place] [facility] [address] [facility] [id number] [place] [address] 06 Apr, 2012 [facility] [place] [facility] [address] [id number] [place] [address] Mar, [facility] [place] [facility] [address] [id number] [place] [address] 28 Jan, 2012 [facility] [place] [facility] [address] [id number], [place] [address] 20 Jan, 2012 [facility] [place] [facility] [address] [id number], [place] [address] 16 Jan, 2012 [facility] [place] [facility] [address] [id number], [place] [address] 15 Jan, 2012 [facility] [place] [facility] [address] [id number] [place] [address] 14 Jan, 2012 [facility] [place] [facility] [address] [id number], [place] [address] 14 Jan, 2012 [facility] [place] [facility] [address] [facility] [id number], [place] [address] 07 Jan, 2012 [facility] [place] [facility] [address] [id number] [place] [address] December, [facility] [address] [id number] [place] [address] December, [facility] [address] [id number] [place] [address] December, [facility] [address] [id number] [place] [address] December, [facility] [address] [id number] [place] [address] Nov, [facility] [address] [id number] [place] [address] Nov, [facility] [address] [id number] [place] [address] Oct, [facility] [address] [id number] [place] [address] Oct, [facility] [address] [id number] [place] [address] Oct, [facility] [address] [id number] [place] [address] Sep, [facility] [address] [id number] [place] [address] Sep, [facility] [address] [id number] [place] [address] Sep, [facility] [place] [facility] [address] [id number] [place] [address] Aug, [facility] [place] [facility] [address] [id number] [place] [address] Aug, [facility] [place] [facility] [address] [id number] [place] [address] Aug, [facility] [place] [facility] [address] [id number] [place] [address] Aug, [facility] [place] [facility] [address] [id number] [place] [address] 13 Aug, 2011 [facility] [place] [facility] [address] [id number] [place] [address] Aug, [facility] [place] [facility] [address] [id number] [place] [address] Aug, [facility] [place] [facility] [address] [id number] [place] [address] Jul, [facility] [place] [facility] [address] [id number] [place] [address] Jul, [facility] [place] [facility] [address] [id number] [place] [address] 30 Jun, 2011 [facility] [place] [facility] [address] [id number] [place] [address] Jun, [facility] [place] [facility] [address] [id number] [place] [address] 17 Jun, 2011 [facility] [place] [facility] [address] [id number] [place] [address] 15 Jun, 2011 [facility] [place] [facility] [address] [id number] [place] [address] 14 Jun, 2011 [facility] [place] [facility] [address] [id number] [place] [address] 14 Jun, 2011 [facility] [place] [facility] [address] [id number], [place] [address] Jun, [facility] [place] [facility] [address] [id number] [place] [address] Jun, [facility] [place] [facility] [address] [id number] [place] [address] Jun, [facility] [place] [facility] [address] [id number], [place] [address] Jun, [facility] [place] [facility] [address] [id number], [place] [address] 31 May, 2011 [facility] [place] [facility] [address] [id number] [place] [address] 31 May, 2011 [facility] [place] [facility] [address] [id number] [place] [address] May, [facility] [place] [facility] [address] [id number] [place] [address] 24 May, 2011 [facility] [place] [facility] [address] [id number] [place] [address] 18 May, 2011 [facility] [place] [facility] [address] [id number] [place] [address] May, [facility] [place] [facility] [address] [id number] [place] [address] Feb, [facility] [place] [facility] [address] [id number] [place] [address] December, [facility] [place] [facility] [address] [id number] [place] [address] 29 Jul, 2010 [facility] [place] [facility] [address] [id number] [place] [address] 29 Jul, 2010 [facility] [place] [facility] [address] [id number] [place] [address] Jul, [facility] [place] [facility] [address] [id number] [place] [address] Jul, [facility] [place] [facility] [address] [id number] [place] [address] 15 Jun, 2010 [facility] [place] [facility] [address] [id number] [place] [address] 31 Jul, 2009 [facility] [place] [facility] [address] [id number] [place] [address] Jul, [facility] [place] [facility] [address] [id number] [place] [address] 23 Jul, 2009 [facility] [place] [facility] [address] [id number], [place] [address] Jul, [facility] [address] [id number], [place] [address] Jul, [facility] [address] [id number], [place] [address] Jul, [facility] [address] [id number], [place] [address] Jan, [facility] [address] [id number], [place] [address] Sep, [facility] [id number], [place] [address] Sep, IMMUNIZATIONS No Known Immunizations SOCIAL HISTORY Never Assessed REASON FOR VISIT followup Anxiety PLAN OF CARE Activity Details Follow Up 4 Weeks Reason: Follow-up VITAL SIGNS MEDICATIONS Unknown Medications RESULTS No Results PROCEDURES Procedure Date Ordered Result Body Site Psychotherapy, patient &/family, 45 minutes, established patient December 25, 2017 INSTRUCTIONS MEDICATIONS ADMINISTERED No Known Medications MEDICAL [...]
--- OUTSIDE RECORDS SUMMARY | 2019-01-22 20:59 | XMS REPORT ---
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 Name Role Phone ENMA SAMSON Unavailable PROBLEMS Type Condition ICD9-CM Code AMG19-KO Code Onset Dates Condition Status SNOMED Code Problem Family history of diabetes mellitus Z83.3 Active 676582508 Problem Hot flashes N95.1 Active 263576978 Problem Excessive and frequent menstruation with irregular cycle N92.1 Active 793576359 Problem Diverticulitis K57.92 Active 998920644 Problem Gastroesophageal reflux disease with esophagitis K21.0 Active 848267992 Problem Mitral valve prolapse I34.1 Active 141892788 Problem Perimenopausal N95.1 Active 130594002039940 Problem Tachycardia R00.0 Active 7039787 Problem Abnormal uterine bleeding (AUB) N93.9 Active 39589949993933 Problem History of diverticulitis Z87.19 Active 829849455540642 Problem History of colon polyps Z86.010 Active 915186030 Problem Generalized anxiety disorder F41.1 Active 969282400 Problem Dense breast tissue R92.2 Active 838962062 Problem Hypertension I10 Active 26018601 Problem History of ovarian cyst Z87.42 Active 75548339 ALLERGIES Substance Reaction Event Type Date Status Sulfamethoxazole-Trimethoprim anaphylaxis Drug Allergy Oct, Active Erythromycin rash Drug Allergy Oct, Active Hydrocodone vomiting Non Drug Allergy Oct, Active ENCOUNTERS Encounter Location Date Diagnosis [facility] [address] [facility] [id number] [address] Apr, [facility] [address] [id number] [address] Mar, [facility] [address] [facility] [id number] [address] Mar, [facility] [address] [id number] [address] Feb, Generalized anxiety disorder F41.1 and Bereavement Z63.4 [facility] [address] [id number] [address] Feb, [facility] [address] [id number] [address] Feb, Generalized anxiety disorder F41.1 and Bereavement Z63.4 [facility] [address] [id number] [address] Feb, Generalized anxiety disorder F41.1 and Bereavement Z63.4 [facility] [address] [id number], [place] [address] Jan, Hypertension I10 and Acute non-recurrent maxillary sinusitis J01.00 [facility] [address]00565100[place], [place] [address] December, [facility] [address] [id number] [address] December, Hypertension I10 [facility] [address]65100[place] [address] December, Generalized anxiety disorder F41.1 [facility] [address] [id number], [place] [address] Oct, Encounter for dental examination Z01.20 [facility] [address] [id number], [place] [address] Oct, Encounter for dental examination Z01.20 [facility] [address] [id number], [place] [address] Oct, Dental examination Z01.20 [facility] [address] [id number] [address] Oct, Generalized anxiety disorder F41.1 [facility] [address] [id number], [place] [address] 30 Aug, 2017 Dental examination Z01.20 [facility] [address] [facility] [id number] [place] [address] Aug, Generalized anxiety disorder F41.1 [facility] [address] [id number] [place] [address] 19 Aug, 2017 [facility] [address] [id number] [place] [address] 09 Aug, 2017 Encounter for dental examination Z01.20 [facility] [id number] [place] [address] 08 Aug, 2017 Subacute maxillary sinusitis J01.00 [facility] [address] [id number] [place] [address] 22 Jul, 2017 Dental examination Z01.20 [facility] [id number] [place] [address] 19 Jul, 2017 Generalized anxiety disorder F41.1 [facility] [id number] [place] [address] 11 Jul, 2017 Diverticulitis K57.92 [facility] [id number] [place] [address] 28 Jun, 2017 Encounter for immunization Z23 [facility] [id number] [place] [address] 22 Jun, 2017 Dental examination Z01.20 [facility] [address] [facility] [id number] [place] [address] 14 Jun, 2017 Generalized anxiety disorder F41.1 [facility] [address] [id number] [place] [address] 07 Jun, 2017 Dental examination Z01.20 [facility] [address] [id number], [place] [address] 30 May, 2017 [facility] [id number] [place] [id number] May, Dental examination Z01.20 [facility] [address] [id number] [id number] May, Dental examination Z01.20 [facility] [address] [id number], [place] [address] May, Dental examination Z01.20 [facility] [id number] [place] [address] May, [facility] [id number] [place] [address] May, Generalized anxiety disorder F41.1 [facility] [id number] [place] [address] May, Localized edema R60.0 ; Yeast vaginitis B37.3 and Gastroesophageal reflux disease with esophagitis K21.0 [facility] [address] [id number] [id number] Apr, Dental examination Z01.20 [facility] [address] [id number], [place] [address] Apr, Dental examination Z01.20 [facility] [address] [id number], [place] [address] Apr, Dental examination Z01.20 [facility] [address] [id number], [place] [address] Mar, Dyspepsia R10.13 [facility] [address] [id number][place] [address] Mar, Generalized anxiety disorder F41.1 [facility] [address] [id number], [place] [address] Mar, Encounter for dental examination Z01.20 [facility] [address] [id number][place] [id number] Mar, [facility] [address]00565[address] [id number] Mar, Dental examination Z01.20 [facility] [id number] [place] [address] Feb, Hypertension I10 and Tachycardia R00.0 [facility] [address] [id number], [place] [address] Feb, [facility] [id number] [place] [address] Feb, Generalized anxiety disorder F41.1 [facility] [id number] [place] [address] [id number] Feb, Dental examination Z01.20 [facility] [id number] [place] [address] Jan, Generalized anxiety disorder F41.1 [facility] [id number] [place] [address] December, Generalized anxiety disorder F41.1 [facility] [id number] [place] [id number] December, Encounter for dental examination Z01.20 [facility] [id number] [place] [address] Nov, [facility] [id number] [place] [address] Nov, [facility] [id number] [place] [address] Nov, Generalized anxiety disorder F41.1 [facility] [id number] [place] [address] Oct, [facility] [id number] [place] [id number] Oct, Dental examination Z01.20 [facility] [id number] [place] [address] Oct, Vaginal dryness N89.8 [place] [id number] [place] [address] Oct, Pseudoseizures F44.5 [address] [address] [address] Oct, Generalized anxiety disorder F41.1 [address] [address] [address] 28 Sep, 2016 Abnormal uterine bleeding (AUB) N93.9 ; Vaginal dryness N89.8 and Screening breast examination Z12.39 [address] [address] [address] Sep, Dental examination Z01.20 [address] [address] 20 Sep, 2016 Generalized anxiety disorder F41.1 [place] [address] [address] 06 Sep, 2016 Unspecified ovarian cyst, right side N83.201 ; Unspecified ovarian cyst, left side N83.202 ; Yeast infection of the vagina B37.3 ; Mitral valve prolapse I34.1 and Hypertension I10 [place] [id number] [place] [address] Aug, Generalized anxiety disorder F41.1 [place] [address] [address] Jul, [place] [address] [address] Jul, Generalized anxiety disorder F41.1 [place] [address] [address] Jun, Generalized anxiety disorder F41.1 [place] [id number] [place] [address] May, Encounter for immunization Z23 [place] [address] [address] May, Generalized anxiety disorder F41.1 and Depressive disorder, not elsewhere classified F32.9 [facility] [id number] [place] [address] 28 Apr, 2016 Hypertension I10 [facility] [id number] [place] [address] 22 Apr, 2016 Cervicalgia M54.2 [facility] [id number] [place] [address] 12 Apr, 2016 Cervicalgia M54.2 [facility] [id number] [place] [address] Mar, Generalized anxiety disorder F41.1 and Depressive disorder, not elsewhere classified F32.9 [facility] [id number] [place] [id number] 14 Feb, 2016 Visit for dental examination Z01.20 [facility] [id number] [place] [address] 11 Feb, 2016 Pseudoseizures F44.5 ; Migraine without status migrainosus, not intractable, unspecified migraine type G43.909 and Essential hypertension I10 [facility] [id number] [place] [id number] Feb, Dental examination Z01.20 [facility] [id number] [place] [address] Feb, Generalized anxiety disorder F41.1 and Depressive disorder, not elsewhere classified F32.9 [facility] [id number] [place] [address] Jan, Tachycardia R00.0 [facility] [id number] [place] [address] December, Eustachian tube dysfunction, bilateral H69.83 [facility] [id number] [place] [address] 09 May, 2016 Generalized anxiety disorder F41.1 and Depressive disorder, not elsewhere classified F32.9 [facility] [id number] [place] [address] Nov, [place] [id number] [place] [address] 28 Nov, 2015 [place] [id number] [place] [address] Nov, Hypertension I10 ; Onychomycosis B35.1 ; [...] and Complex cyst of left ovary N83.29 [place] [id number] [place] [address] 14 Nov, 2015 Sinusitis J32.9 [place] [id number] [place] [address] Oct, Complex cyst of left ovary N83.29 [place] [id number] [place] [address] Oct, Onychomycosis B35.1 [facility] [address] [place] [id number] 17 Oct, 2015 Dental examination Z01.20 [place] [address] [place] [address] 09 Oct, 2015 Well woman exam Z01.419 [...] R92.2 and History of colon polyps Z86.010 [place] [id number] [place] [address] Oct, Generalized anxiety disorder F41.1 and Depressive disorder, not elsewhere classified F32.9 [place] [address] [address] Sep, Hypertension I10 and Onychomycosis B35.1 [place] [address] [address] Sep, Skin tags, multiple acquired L91.8 [place] [address] [address] Aug, [place] [address] [address] Aug, [place] [id number] [place] [address] Aug, [place] [address] [address] Aug, Generalized anxiety disorder F41.1 and Depressive disorder, not elsewhere classified F32.9 [place] [id number] [place] [address] Jul, Skin lesion L98.9 [facility] [id number] [place] [address] Jun, Generalized anxiety disorder F41.1 and Depressive disorder, not elsewhere classified F32.9 [place] [address] [address] Jun, [place] [id number] [place] [address] Jun, Generalized anxiety disorder F41.1 [place] [address] [place] [address] May, Encounter for immunization Z23 and Right shoulder pain M25.511 [facility] [id number] [place] [address] Apr, [facility] [id number] [place] [address] 14 Apr, 2015 Generalized anxiety disorder 300.02 and Depressive disorder, not elsewhere classified 311 [facility] [address] [place] [address] [id number] Mar, Dental examination V72.2 [facility] [id number] [place] [address] Mar, Generalized anxiety disorder 300.02 and Depressive disorder, not elsewhere classified 311 [facility] [id number] [place] [address] Mar, Depression, major, recurrent, 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.35 and 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 [facility] [address] [place] [address] Feb, Generalized anxiety disorder 300.02 and Depressive disorder, not elsewhere classified 311 [facility] [id number] [place] [address] [id number] Feb, Dental examination V72.2 [facility] [address] [place] [address] Jan, Generalized anxiety disorder 300.02 and Depressive disorder, not elsewhere classified 311 [facility] [address] [place] [address] Jan, [facility] [id number] [place] [address] December, Generalized anxiety disorder 300.02 and Depressive disorder, not elsewhere classified 311 [facility] [address] [place] [address] December, Major depressive disorder, recurrent, unspecified 296.30 and Panic disorder with agoraphobia 300.21 [facility] [place] [facility] [address] [place] [address] 14 Nov, 2014 [facility] [place] [facility] [address]00565100[place], [place] [address] 13 Nov, 2014 [facility] [place] [facility] [address] [place] [address] Oct, [facility] [place] [facility] [address]100[place], [place] [address] Oct, [facility] [place] [facility] [address] [place] [address] Oct, [facility] [place] [facility] [address], [place] [address] Oct, [facility] [address]100[place], [place] [address] Sep, [facility] [place] [facility] [address], [place] [address] Sep, [facility] [address], [place] [address] Sep, [facility] [place] [facility] [address], [place] [address] Sep, [facility] [place] [facility] [address]100[place], [place] [address] Sep, 2014 [facility] [place] [facility] [address], [place] [address] Sep, 2014 [facility] [place] [facility] [address], [place] [address] Sep, 2014 [facility] [place] [facility] [address]100[place], [place] [address] Sep, 2014 [facility] [place] [facility] [address], [place] [address] Sep, [facility] [place] [facility] [address] [id number] [place] [address] Sep, [facility] [place] [facility] [address] [id number] [place] [address] Aug, [facility] [place] [facility] [address] [id number] [place] [address] Aug, [facility] [place] [facility] [address] [id number] [place] [address] Jul, [facility] [place] [facility] [address] [id number] [place] [address] Jul, [facility] [place] [facility] [address] [id number] [place] [address] Jul, [facility] [place] [facility] [address] [id number] [place] [address] Jul, [facility] [place] [facility] [address] [id number] [place] [address] Jul, [facility] [place] [facility] [address] [id number] [place] [address] Jul, [facility] [place] [facility] [address] [id number] [place] [address] Jul, [facility] [place] [facility] [address] [id number] [place] [address] Jul, [facility] [place] [facility] [address] [id number] [place] [address] Jul, [facility] [place] [facility] [address] [id number] [place] [address] Jul, [facility] [place] [facility] [address] [id number] [place] [address] Jul, [facility] [place] [facility] [address] [id number] [place] [address] Jul, [facility] [place] [facility] [address] [id number], [place] [address] Jun, [facility] [place] [facility] [address] [id number] [place] [address] Jun, [facility] [place] [facility] [address] [id number] [place] [address] May, [facility] [place] [facility] [address] [id number] [place] [address] May, [facility] [place] [facility] [address] [id number] [place] [address] May, [facility] [place] [facility] [address] [id number] [place] [address] May, [facility] [place] [facility] [address] [id number] [place] [address] May, [facility] [place] [facility] [address] [id number] [place] [address] May, [facility] [place] [facility] [address] [id number], [place] [address] May, [facility] [place] [facility] [address] [id number], [place] [address] May, [facility] [place] [facility] [address] [id number], [place] [address] May, [facility] [place] [facility] [address] [id number], [place] [address] May, [facility] [place] [facility] [address] [id number], [place] [address] May, [facility] [place] [facility] [address] [id number] [place] [address] May, [facility] [place] [facility] [address] [id number], [place] [address] Apr, [facility] [place] [facility] [address] [id number] [place] [address] Apr, [facility] [place] [facility] [address] [id number] [place] [address] Apr, [facility] [place] [facility] [address] [id number] [place] [address] Apr, [facility] [place] [facility] [address] [id number] [place] [address] Apr, [facility] [place] [facility] [address] [id number] [place] [address] Apr, [facility] [place] [facility] [address] [id number] [place] [address] Feb, [facility] [place] [facility] [address] [id number] [place] [address] Feb, [facility] [place] [facility] [address] [id number] [place] [address] Feb, [facility] [place] [facility] [address] [id number] [place] [address] Feb, [facility] [place] [facility] [address] [id number] [place] [address] Feb, [facility] [place] [facility] [address] [id number] [place] [address] Feb, [facility] [place] [facility] [address] [id number] [place] [address] Jan, [facility] [place] [facility] [address] [id number] [place] [address] Jan, [facility] [place] [facility] [address] [id number] [place] [address] Jan, [facility] [place] [facility] [address] [id number] [place] [address] Jan, [facility] [place] [facility] [address] [id number] [place] [address] Jan, [facility] [place] [facility] [address] [id number] [place] [address] Jan, [facility] [place] [facility] [address] [id number] [place] [address] Jan, [facility] [place] [facility] [address] [id number] [place] [address] Jan, [facility] [place] [facility] [address] [id number] [place] [address] December, [facility] [place] [facility] [address] [id number] [place] [address] December, [facility] [place] [facility] [address] [id number] [place] [address] December, [facility] [place] [facility] [address] [id number] [place] [address] December, [facility] [place] [facility] [address] [id number] [place] [address] Nov, [facility] [place] [facility] [address] [id number] [place] [address] Nov, [facility] [place] [facility] [address] [id number] [place] [address] Nov, [facility] [place] [facility] [address] [id number] [place] [address] Nov, [facility] [place] [facility] [address] [id number] [place] [address] Nov, [facility] [place] [facility] [address] [id number] [place] [address] Nov, [facility] [place] [facility] [address] [id number] [place] [address] Nov, [facility] [place] [facility] [address] [id number] [place] [address] Nov, [facility] [place] [facility] [address] [id number] [place] [address] Oct, [facility] [place] [facility] [address] [id number] [address] Oct, [facility] [address] [id number] [place] [address] Sep, [facility] [place] [facility] [address] [id number] [place] [address] Sep, [facility] [facility] [address] [id number] [place] [id number] Sep, [facility] [place] [facility] [address] [id number] [place] [address] Sep, [facility] [address] [id number] [place] [address] Sep, [facility] [place] [facility] [address] [id number] [place] [address] Sep, [facility] [address] [id number] [place] [address] Aug, [facility] [address] [id number] [place] [address] Aug, [facility] [address] [id number] [place] [address] Aug, [facility] [address] [facility] [id number] [place] [address] Aug, [facility] [address] [id number] [place] [address] Jul, [facility] [place] [facility] [address] [id number] [place] [address] Jul, [facility] [place] [facility] [address] [id number] [place] [address] Jul, [facility] [place] [facility] [address] [id number] [place] [address] Jul, [facility] [place] [facility] [address] [id number] [place] [address] Jun, [facility] [place] [facility] [address] [id number] [place] [address] Jun, [facility] [place] [facility] [address] [id number] [place] [address] May, [facility] [place] [facility] [address] [id number] [place] [address] May, [facility] [place] [facility] [address] [id number] [place] [address] May, [facility] [place] [facility] [address] [id number] [place] [address] May, [facility] [place] [facility] [address] [id number] [place] [address] May, [facility] [place] [facility] [address] [id number] [place] [address] Apr, [facility] [place] [facility] [address] [id number] [place] [address] Apr, [facility] [place] [facility] [address] [id number] [place] [address] Mar, [facility] [place] [facility] [address] [id number] [place] [address] Mar, [facility] [place] [facility] [address] [id number] [place] [address] Mar, [facility] [place] [facility] [address] [id number] [place] [address] Mar, [facility] [place] [facility] [address] [id number] [place] [address] Feb, [facility] [place] [facility] [address] [id number] [place] [address] Feb, [facility] [place] [facility] [address] [id number] [place] [address] 16 Feb, 2013 [facility] [place] [facility] [address] [id number] [place] [address] Feb, [facility] [address] [id number] [place] [address] Feb, [facility] [place] [facility] [address] [id number] [place] [address] Jan, [facility] [place] [facility] [address] [id number] [place] [address] Jan, [facility] [place] [facility] [address] [id number] [place] [address] Jan, [facility] [place] [facility] [address] [id number] [place] [address] Jan, [facility] [place] [facility] [address] [id number] [place] [address] Jan, [facility] [place] [facility] [address] [id number] [place] [address] December, [facility] [place] [facility] [address] [id number] [place] [address] December, [facility] [address] [id number] [place] [address] Nov, [facility] [place] [facility] [address] [id number] [place] [address] Nov, [facility] [place] [facility] [address] [id number] [place] [address] Oct, [facility] [place] [facility] [address] [id number] [place] [address] Oct, [facility] [place] [facility] [address] [id number] [place] [address] 05 Oct, 2012 [facility] [place] [facility] [address] [id number] [place] [address] 14 Sep, 2012 [facility] [place] [facility] [address] [id number] [place] [address] Aug, [facility] [place] [facility] [address] [id number] [place] [address] 16 Aug, 2012 [facility] [address] [id number] [place] [address] 15 Aug, 2012 [facility] [address] [id number] [place] [address] Aug, [facility] [address] [id number] [place] [address] Jul, [facility] [address] [id number] [place] [address] Jul, [facility] [address] [id number] [place] [address] Jul, [facility] [address] [id number] [place] [address] Jul, [facility] [address] [id number] [place] [address] Jul, [facility] [address] [id number] [place] [address] Jul, [facility] [address] [id number] [place] [address] Jul, [facility] [address] [id number] [place] [address] Jul, [facility] [address] [id number] [place] [address] Jun, [facility] [address] [id number] [place] [address] Jun, [facility] [place] [facility] [address] [id number] [place] [address] Jun, [facility] [address] [id number] [place] [address] Jun, [facility] [address] [id number] [place] [address] Jun, [facility] [place] [facility] [address] [id number] [place] [address] Jun, [facility] [place] [facility] [address] [id number] [place] [address] May, [facility] [place] [facility] [address] [id number] [place] [address] May, [facility] [place] [facility] [address] [id number] [place] [address] May, [facility] [place] [facility] [address] [id number] [place] [address] May, [facility] [place] [facility] [address] [id number] [place] [address] Apr, [facility] [place] [facility] [address] [id number] [place] [address] Apr, [facility] [place] [facility] [address] [id number] [place] [address] Mar, [facility] [place] [facility] [address] [id number] [place] [address] 28 Jan, 2012 [facility] [place] [facility] [address] [facility] [id number] [address] 20 Jan, 2012 [facility] [place] [facility] [address] [facility] [id number], [place] [address] 16 Jan, 2012 [facility] [place] [facility] [address] [id number], [place] [address] 15 Jan, 2012 [facility] [place] [facility] [address] [id number] [place] [address] 14 Jan, 2012 [facility] [place] [facility] [address] [id number], [place] [address] 14 Jan, 2012 [facility] [place] [facility] [address] [facility] [id number], [place] [address] 07 Jan, 2012 [facility] [place] [facility] [address] [id number], [place] [address] December, [facility] [address] [id number] [place] [address] December, [facility] [address] [id number] [place] [address] December, [facility] [address] [id number] [place] [address] December, [facility] [address] [id number] [place] [address] Nov, [facility] [address] [id number] [place] [address] Nov, [facility] [address] [id number] [place] [address] Oct, [facility] [id number] [place] [address] Oct, [facility] [address] [id number] [place] [address] Oct, [facility] [address] [id number] [place] [address] Sep, [facility] [address] [id number] [place] [address] Sep, [facility] [address] [id number] [place] [address] Sep, [facility] [address] [id number] [place] [address] Aug, [facility] [place] [facility] [address] [id number] [place] [address] Aug, [facility] [place] [facility] [address] [id number] [place] [address] Aug, [facility] [address] [id number], [place] [address] Aug, [facility] [address] [id number] [place] [address] Aug, [facility] [place] [facility] [address] [id number] [place] [address] Aug, [facility] [place] [facility] [address] [id number] [place] [address] Aug, [facility] [place] [facility] [address] [id number] [place] [address] Jul, [facility] [place] [facility] [address] [id number] [place] [address] Jul, [facility] [place] [facility] [address] [id number] [place] [address] Jun, [facility] [place] [facility] [address] [id number] [place] [address] Jun, [facility] [place] [facility] [address] [id number] [place] [address] 17 Jun, 2011 [facility] [place] [facility] [address] [id number] [place] [address] 15 Jun, 2011 [facility] [place] [facility] [address] [id number] [place] [address] 14 Jun, 2011 [facility] [place] [facility] [address] [id number] [place] [address] Jun, [facility] [place] [facility] [address] [id number] [place] [address] Jun, [facility] [place] [facility] [address] [id number] [place] [address] Jun, [facility] [place] [facility] [address] [id number] [place] [address] Jun, [facility] [place] [facility] [address] [id number] [place] [address] Jun, [facility] [place] [facility] [address] [id number] [place] [address] 31 May, 2011 [facility] [place] [facility] [address] [id number] [place] [address] 31 May, 2011 [facility] [place] [facility] [address] [id number] [place] [address] May, [facility] [place] [facility] [address] [id number] [place] [address] 24 May, 2011 [facility] [place] [facility] [address] [id number] [place] [address] 18 May, 2011 [facility] [place] [facility] [address] [id number] [place] [address] May, [facility] [place] [facility] [address] [id number] [place] [address] Feb, [facility] [place] [facility] [address] [id number] [place] [address] December, [facility] [place] [facility] [address] [id number] [place] [address] 29 Jul, 2010 [facility] [place] [facility] [address] [id number] [place] [address] 29 Jul, 2010 [facility] [place] [facility] [address] [id number] [place] [address] Jul, [facility] [place] [facility] [address] [id number] [place] [address] Jul, [facility] [place] [facility] [address] [id number] [place] [address] 15 Jun, 2010 [facility] [place] [facility] [address] [id number] [place] [address] 31 Jul, 2009 [facility] [place] [facility] [address] [id number] [place] [address] Jul, [facility] [place] [facility] [address] [id number] [place] [address] Jul, [facility] [place] [facility] [address] [facility] [id number], [place] [address] Jul, [facility] [address] [facility] [id number], [place] [address] Jul, [facility] [address] [id number] [address] Jul, [facility] [address] [id number] [address] Jan, [facility] [address] [id number] [address] Sep, [facility] [id number] [address] Sep, IMMUNIZATIONS No Known Immunizations SOCIAL HISTORY Never Assessed REASON FOR VISIT Partial not fitting PLAN OF CARE Activity Details Follow Up 4 Month recall Reason: VITAL SIGNS Height 66 in 2017-11-07 Blood pressure systolic 124 mmHg 2017-11-07 Blood pressure diastolic 86 mmHg 2017-11-07 MEDICATIONS Medication Instructions Dosage Frequency Start Date End Date Duration Status Clorazepate Dipotassium 7.5 MG Orally 4 times a day 1 tablet as needed 6h 30 days Active [place] 7.5-325 MG Orally every 4-6 hours as needed 1 tablet Not-Taking Motrin Active InnoPran XL 80 MG Orally Once a day. Take along with 120mg 1 capsule at bedtime 30 Active Percocet 5-325 MG Orally every 6 hrs 1 tablet as needed 6h Not-Taking Zofran Not-Taking Flagyl 500 MG Orally 4 times a day 1 tablet 6h Not-Taking Ibuprofen 600 MG Orally Three times a day 1 tablet with food or milk as needed 8h May, Not-Taking Bactroban Not-Taking Fluconazole 150 MG Orally now and may repeat in 3 days 1 tablet May, Not-Taking Omeprazole 20 MG TAKE ONE CAPSULE BY MOUTH ONCE DAILY BEFORE MEALS Jun, 30 Active Probiotic Not-Taking Hydrochlorothiazide 25 MG Orally Once a day as needed TAKE ONE 90 days Active Hyoscyamine Sulfate 0.125 mg 1 tablet by Oral route 4 times per day PRN Jul, Active Cephalexin 500 MG Orally every 6 hrs 1 capsule 6h Not-Taking Mucinex 600 MG Orally every 12 hrs 1 tablet as needed 12h Not-Taking Azithromycin Not-Taking RESULTS No Results PROCEDURES Procedure Date Ordered Result Body Site Dental no charge November 07, 2017 INSTRUCTIONS MEDICATIONS ADMINISTERED No Known Medications [...]
--- OUTSIDE RECORDS SUMMARY | 2019-01-22 21:00 | XMS REPORT ---
Author Author ENMA SAMSON Organization [facility] Address [address] [place] [address] Care Team Providers Care [employer] Studio Consultant Name Role Phone ENMA SAMSON Unavailable PROBLEMS Type Condition ICD9-CM Code RYO24-AH Code Onset Dates Condition Status SNOMED Code Problem Family history of diabetes mellitus Z83.3 Active 756922313 Problem Hot flashes N95.1 Active 435719372 Problem Excessive and frequent menstruation with irregular cycle N92.1 Active 863122182 Problem Diverticulitis K57.92 Active 580067399 Problem Gastroesophageal reflux disease with esophagitis K21.0 Active 928276572 Problem Mitral valve prolapse I34.1 Active 943518939 Problem Perimenopausal N95.1 Active 175459729920193 Problem Tachycardia R00.0 Active 1725952 Problem Abnormal uterine bleeding (AUB) N93.9 Active 60827669494357 Problem History of diverticulitis Z87.19 Active 137199394177683 Problem History of colon polyps Z86.010 Active 304062239 Problem Generalized anxiety disorder F41.1 Active 394331033 Problem Dense breast tissue R92.2 Active 034490738 Problem Hypertension I10 Active 78404887 Problem History of ovarian cyst Z87.42 Active 17690609 ALLERGIES Substance Reaction Event Type Date Status Sulfamethoxazole-Trimethoprim anaphylaxis Drug Allergy Oct, Active Erythromycin rash Drug Allergy Oct, Active Hydrocodone vomiting Non Drug Allergy Oct, Active ENCOUNTERS Encounter Location Date Diagnosis [facility] [address] [facility] [id number], [place] [address] Mar, [facility] [address] [id number] [address] Mar, [facility] [address] [id number] [address] Feb, [facility] [address], [place] [address] Feb, [facility] [id number] [place] [address] Feb, Generalized anxiety disorder F41.1 and Bereavement Z63.4 [facility] [address], [place] [address] Feb, Generalized anxiety disorder F41.1 and Bereavement Z63.4 [facility] [address], [place] [address] Jan, Hypertension I10 and Acute non-recurrent maxillary sinusitis J01.00 [facility] [address], [place] [address] December, [facility] [id number] [place] [address] December, Hypertension I10 [facility] [id number] [place] [address] December, Generalized anxiety disorder F41.1 [facility] [address] [id number] [place] [address] Oct, Encounter for dental examination Z01.20 [facility] [address] [id number] [place] [address] Oct, Encounter for dental examination Z01.20 [facility] [address] [id number] [place] [address] Oct, Dental examination Z01.20 [facility] [address] [address] Oct, Generalized anxiety disorder F41.1 [facility] [address] [id number] [place] [address] Aug, Dental examination Z01.20 [facility] [address], [place] [address] Aug, Generalized anxiety disorder F41.1 [facility] [address], [place] [address] Aug, [facility] [address] [id number] [place] [address] Aug, Encounter for dental examination Z01.20 [facility] [id number] [place] [address] Aug, Subacute maxillary sinusitis J01.00 [facility] [address] [id number] [place] [address] Jul, Dental examination Z01.20 [facility] [id number] [place] [address] Jul, Generalized anxiety disorder F41.1 [facility] [id number] [place] [address] Jul, Diverticulitis K57.92 [facility] [id number] [place] [address] Jun, Encounter for immunization Z23 [facility] [id number] [place] [address] 22 Jun, 2017 Dental examination Z01.20 [facility] [address] [place] [address] 14 Jun, 2017 Generalized anxiety disorder F41.1 [facility] [id number] [place] [address] 07 Jun, 2017 Dental examination Z01.20 [facility] [id number] [place] [address] May, [facility] [address] [place] [address] [phone] May, Dental examination Z01.20 [facility] [id number] [place] [address] [id number] May, Dental examination Z01.20 [facility] [address] [id number] [place] [address] May, Dental examination Z01.20 [facility] [address] [place] [address] May, [facility] [id number] [place] [address] May, Generalized anxiety disorder F41.1 [facility] [id number] [place] [address] May, Localized edema R60.0 ; Yeast vaginitis B37.3 and Gastroesophageal reflux disease with esophagitis K21.0 [facility] [id number] [place] [address] [id number] Apr, Dental examination Z01.20 [facility] [id number] [place] [address] Apr, Dental examination Z01.20 [facility] [id number] [place] [address] 05 Apr, 2017 Dental examination Z01.20 [facility] [id number] [place] [address] Mar, Dyspepsia R10.13 [facility] [address] [place] [address] Mar, Generalized anxiety disorder F41.1 [facility] [id number] [place] [address] Mar, Encounter for dental examination Z01.20 [facility] [id number] [place] [address] [id number] Mar, [facility] [address] [place] [address] [phone] Mar, Dental examination Z01.20 [facility] [id number] [place] [address] Feb, Hypertension I10 and Tachycardia R00.0 [facility] [id number] [place] [address] Feb, [facility] [id number] [place] [address] Feb, Generalized anxiety disorder F41.1 [facility] [id number] [place] [phone] Feb, Dental examination Z01.20 [facility] [id number] [place] [address] Jan, Generalized anxiety disorder F41.1 [facility] [address] [place] [address] December, Generalized anxiety disorder F41.1 [facility] [id number] [place] [phone] December, Encounter for dental examination Z01.20 [facility] [id number] [place] [address] Nov, [facility] [id number] [place] [address] Nov, [facility] [id number] [place] [address] Nov, Generalized anxiety disorder F41.1 [facility] [id number] [place] [address] Oct, [facility] [address] [place] [address] [id number] Oct, Dental examination Z01.20 [facility] [address] [place] [address] Oct, Vaginal dryness N89.8 [facility] [id number] [place] [address] Oct, Pseudoseizures F44.5 [place] [address] [place] [address] Oct, Generalized anxiety disorder F41.1 [place] [address] [address] 28 Sep, 2016 Abnormal uterine bleeding (AUB) N93.9 ; Vaginal dryness N89.8 and Screening breast examination Z12.39 [place] [address] [address] Sep, Dental examination Z01.20 [place] [address] [address] Sep, Generalized anxiety disorder F41.1 [place] [address] [address] 06 Sep, 2016 Unspecified ovarian cyst, right side N83.201 ; Unspecified ovarian cyst, left side N83.202 ; Yeast infection of the vagina B37.3 ; Mitral valve prolapse I34.1 and Hypertension I10 [place] [address] [address] Aug, Generalized anxiety disorder F41.1 [place] [address] [address] Jul, [place] [address] [address] Jul, Generalized anxiety disorder F41.1 [place] [id number] [place] [address] Jun, Generalized anxiety disorder F41.1 [place] [address] [address] May, Encounter for immunization Z23 [place] [address] [address] 17 May, 2016 Generalized anxiety disorder F41.1 and Depressive disorder, not elsewhere classified F32.9 [place] [address] [place] [address] 28 Apr, 2016 Hypertension I10 [facility] [id number] [place] [address] 22 Apr, 2016 Cervicalgia M54.2 [facility] [address] [place] [address] 12 Apr, 2016 Cervicalgia M54.2 [facility] [address] [place] [address] Mar, Generalized anxiety disorder F41.1 and Depressive disorder, not elsewhere classified F32.9 [facility] [id number] [place] [address] [id number] 14 Feb, 2016 Visit for dental examination Z01.20 [facility] [address] [place] [address] 11 Feb, 2016 Pseudoseizures F44.5 ; Migraine without status migrainosus, not intractable, unspecified migraine type G43.909 and Essential hypertension I10 [facility] [id number] [place] [address] [id number] Feb, Dental examination Z01.20 [facility] [address] [place] [address] Feb, Generalized anxiety disorder F41.1 and Depressive disorder, not elsewhere classified F32.9 [facility] [address] [place] [address] Jan, Tachycardia R00.0 [facility] [address] [place] [address] December, Eustachian tube dysfunction, bilateral H69.83 [facility] [address] [place] [address] December, Generalized anxiety disorder F41.1 and Depressive disorder, not elsewhere classified F32.9 [facility] [id number] [place] [address] Nov, [place] [address] [place] [address] Nov, [address] [address] Nov, Hypertension I10 ; Onychomycosis B35.1 ; [...] and Complex cyst of left ovary N83.29 [id number] [place] [address] Nov, Sinusitis J32.9 [place] [id number] [place] [address] Oct, Complex cyst of left ovary N83.29 [id number] [place] [address] Oct, Onychomycosis B35.1 [facility] [id number] [place] [address] [id number] 17 Oct, 2015 Dental examination Z01.20 [id number] [place] [address] 09 Oct, 2015 Well woman exam Z01.419 [...] R92.2 and History of colon polyps Z86.010 [place] [address] [place] [address] Oct, Generalized anxiety disorder F41.1 and Depressive disorder, not elsewhere classified F32.9 [facility] [address] [place] [address] Sep, Hypertension I10 and Onychomycosis B35.1 [facility] [address] [place] [address] Sep, Skin tags, multiple acquired L91.8 [facility] [address] [place] [address] Aug, [facility] [address] [place] [address] Aug, [facility] [address] [place] [address] Aug, [facility] [address] [place] [address] Aug, Generalized anxiety disorder F41.1 and Depressive disorder, not elsewhere classified F32.9 [facility] [address] [place] [address] Jul, Skin lesion L98.9 [facility] [address] [place] [address] Jun, Generalized anxiety disorder F41.1 and Depressive disorder, not elsewhere classified F32.9 [facility] [address] [place] [address] Jun, [facility] [address] [place] [address] Jun, Generalized anxiety disorder F41.1 [facility] [address] [place] [address] May, Encounter for immunization Z23 and Right shoulder pain M25.511 [facility] [address] [place] [address] Apr, [facility] [address], [place] [address] Apr, Generalized anxiety disorder 300.02 and Depressive disorder, not elsewhere classified 311 [facility] [address] [id number] Mar, Dental examination V72.2 [facility] [id number] [place] [address] Mar, Generalized anxiety disorder 300.02 and Depressive disorder, not elsewhere classified 311 [facility] [address] [place] [address] Mar, Depression, major, recurrent, 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.35 and 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 [facility] [address], [place] [address] Feb, Generalized anxiety disorder 300.02 and Depressive disorder, not elsewhere classified 311 [facility] [id number] [id number] Feb, Dental examination V72.2 [facility] [address], [place] [address] Jan, Generalized anxiety disorder 300.02 and Depressive disorder, not elsewhere classified 311 [facility] [id number], [place] [address] Jan, [facility] [address] [place] [address] December, Generalized anxiety disorder 300.02 and Depressive disorder, not elsewhere classified 311 [facility] [address] [place] [address] December, Major depressive disorder, recurrent, unspecified 296.30 and Panic disorder with agoraphobia 300.21 [facility] [address], [place] [address] 14 Nov, 2014 [facility] [place] [facility] [address] [facility] [id number] [place] [address] Nov, [facility] [place] [facility] [address] [id number] [place] [address] Oct, [facility] [place] [facility] [address] [id number] [place] [address] Oct, [facility] [place] [facility] [address] [id number] [place] [address] Oct, [facility] [place] [facility] [address] [id number] [place] [address] Oct, [facility] [place] [facility] [address] [id number] [place] [address] Sep, 2014 [facility] [place] [facility] [address] [facility] [id number] [place] [address] Sep, 2014 [facility] [place] [facility] [address] [facility] [id number] [place] [address] Sep, 2014 [facility] [place] [facility] [address] [facility] [id number] [place] [address] Sep, 2014 [facility] [place] [facility] [address] [facility] [id number] [place] [address] Sep, 2014 [facility] [place] [facility] [address] [facility] [id number] [place] [address] Sep, 2014 [facility] [place] [facility] [address] [facility] [id number], [place] [address] Sep, 2014 [facility] [place] [facility] [address] [facility] [id number] [place] [address] Sep, 2014 [facility] [place] [facility] [address] [facility] [id number] [place] [address] Sep, 2014 [facility] [place] [facility] [address] [facility] [id number], [place] [address] Sep, 2014 [facility] [place] [facility] [address] [facility] [id number], [place] [address] Aug, [facility] [place] [facility] [address] [id number] [place] [address] Aug, [facility] [place] [facility] [address] [id number] [place] [address] Jul, [facility] [place] [facility] [address] [facility] [id number] [place] [address] Jul, [facility] [place] [facility] [address] [id number] [place] [address] Jul, [facility] [place] [facility] [address] [id number] [place] [address] Jul, [facility] [place] [facility] [address] [id number] [place] [address] Jul, [facility] [place] [facility] [address] [facility] [id number] [place] [address] Jul, [facility] [place] [facility] [address] [id number] [place] [address] Jul, [facility] [place] [facility] [address] [id number] [place] [address] Jul, [facility] [place] [facility] [address] [facility] [id number] [place] [address] Jul, [facility] [place] [facility] [address] [id number] [place] [address] Jul, [facility] [place] [facility] [address] [id number] [place] [address] Jul, [facility] [place] [facility] [address] [id number] [place] [address] Jul, [facility] [place] [facility] [address] [facility] [id number] [place] [address] Jun, [facility] [place] [facility] [address] [facility] [id number] [place] [address] Jun, [facility] [place] [facility] [address] [id number] [place] [address] May, [facility] [place] [facility] [address] [id number] [place] [address] May, [facility] [place] [facility] [address] [id number] [place] [address] May, [facility] [place] [facility] [address] [id number] [place] [address] May, [facility] [place] [facility] [address] [id number] [place] [address] May, [facility] [place] [facility] [address] [id number] [place] [address] May, [facility] [place] [facility] [address] [id number] [place] [address] May, [facility] [place] [facility] [address] [id number] [place] [address] May, [facility] [place] [facility] [address] [id number] [place] [address] May, [facility] [place] [facility] [address] [id number] [place] [address] May, [facility] [place] [facility] [address] [id number] [place] [address] May, [facility] [place] [facility] [address] [id number] [place] [address] May, [facility] [place] [facility] [address] [id number] [place] [address] 30 Apr, 2014 [facility] [place] [facility] [address] [id number] [place] [address] 30 Apr, 2014 [facility] [place] [facility] [address] [id number] [place] [address] 29 Apr, 2014 [facility] [place] [facility] [address] [id number] [place] [address] Apr, [facility] [place] [facility] [address] [id number] [place] [address] Apr, [facility] [place] [facility] [address] [id number] [place] [address] Apr, [facility] [place] [facility] [address] [id number] [place] [address] Feb, [facility] [place] [facility] [address] [id number] [place] [address] Feb, [facility] [place] [facility] [address] [id number] [place] [address] Feb, [facility] [place] [facility] [address] [id number] [place] [address] Feb, [facility] [place] [facility] [address] [id number] [place] [address] Feb, [facility] [place] [facility] [address] [id number] [place] [address] Feb, [facility] [place] [facility] [address] [id number] [place] [address] Jan, [facility] [place] [facility] [address] [id number] [place] [address] Jan, [facility] [place] [facility] [address] [id number] [place] [address] Jan, [facility] [place] [facility] [address] [id number], [place] [address] Jan, [facility] [place] [facility] [address] [id number] [place] [address] Jan, [facility] [place] [facility] [address] [id number] [place] [address] Jan, [facility] [place] [facility] [address] [id number] [place] [address] Jan, [facility] [place] [facility] [address] [id number] [place] [address] Jan, [facility] [place] [facility] [address] [id number] [place] [address] December, [facility] [place] [facility] [address] [id number] [place] [address] December, [facility] [place] [facility] [address] [id number] [place] [address] December, [facility] [place] [facility] [address] [id number] [place] [address] December, [facility] [place] [facility] [address] [id number] [place] [address] Nov, [facility] [place] [facility] [address] [id number] [place] [address] Nov, [facility] [place] [facility] [address] [id number] [place] [address] Nov, [facility] [place] [facility] [address] [id number] [place] [address] Nov, [facility] [place] [facility] [address] [id number] [place] [address] Nov, [facility] [place] [facility] [address] [id number] [place] [address] Nov, [facility] [place] [facility] [address] [id number] [place] [address] Nov, [facility] [place] [facility] [address] [id number] [place] [address] Nov, [facility] [place] [facility] [address] [id number] [place] [address] Oct, [facility] [place] [facility] [address] [id number] [place] [address] Oct, [facility] [place] [facility] [address] [id number] [place] [address] Sep, [facility] [place] [facility] [address] [id number] [place] [address] Sep, [facility] [place] [facility] [address] [id number] [place] [id number] Sep, [facility] [place] [facility] [address] [id number] [place] [address] Sep, [facility] [place] [facility] [address] [id number] [place] [address] Sep, [facility] [place] [facility] [address] [id number] [place] [address] Sep, [facility] [place] [facility] [address] [id number] [place] [address] Aug, [facility] [place] [facility] [address] [id number] [place] [address] Aug, [facility] [place] [facility] [address] [id number] [place] [address] Aug, [facility] [place] [facility] [address] [id number] [place] [address] Aug, [facility] [place] [facility] [address] [id number] [place] [address] Jul, [facility] [place] [facility] [address] [id number] [place] [address] Jul, [facility] [place] [facility] [address] [id number], [place] [address] Jul, [facility] [place] [facility] [address] [id number] [place] [address] Jul, [facility] [place] [facility] [address] [id number] [place] [address] Jun, [facility] [place] [facility] [address] [id number] [place] [address] Jun, [facility] [place] [facility] [address] [id number], [place] [address] May, [facility] [place] [facility] [address] [id number] [place] [address] 24 May, 2013 [facility] [place] [facility] [address] [id number] [place] [address] May, [facility] [place] [facility] [address] [id number] [place] [address] May, [facility] [place] [facility] [address] [id number] [place] [address] May, [facility] [place] [facility] [address] [id number] [place] [address] Apr, [facility] [place] [facility] [address] [id number] [place] [address] Apr, [facility] [place] [facility] [address] [id number] [place] [address] Mar, [facility] [place] [facility] [address] [id number] [place] [address] Mar, [facility] [place] [facility] [address] [id number] [place] [address] Mar, [facility] [place] [facility] [address] [id number] [place] [address] Mar, [facility] [place] [facility] [address] [id number] [place] [address] Feb, [facility] [place] [facility] [address] [id number] [place] [address] Feb, [facility] [place] [facility] [address] [id number] [place] [address] 16 Feb, 2013 [facility] [place] [facility] [address] [id number] [place] [address] Feb, [facility] [place] [facility] [address] [id number] [place] [address] Feb, [facility] [place] [facility] [address] [id number] [place] [address] Jan, [facility] [address] [id number] [place] [address] Jan, [facility] [place] [facility] [address] [id number] [place] [address] Jan, [facility] [place] [facility] [address] [id number] [place] [address] Jan, [facility] [place] [facility] [address] [id number] [place] [address] Jan, [facility] [place] [facility] [address] [id number] [place] [address] December, [facility] [place] [facility] [address] [id number] [place] [address] December, [facility] [place] [facility] [address] [id number] [place] [address] Nov, [facility] [place] [facility] [address] [id number] [place] [address] Nov, [facility] [place] [facility] [address] [id number] [place] [address] Oct, [facility] [place] [facility] [address] [id number] [place] [address] Oct, [facility] [place] [facility] [address] [id number] [place] [address] 05 Oct, 2012 [facility] [place] [facility] [address] [id number] [place] [address] 14 Sep, 2012 [facility] [place] [facility] [address] [id number] [place] [address] 24 Aug, 2012 [facility] [place] [facility] [address] [id number] [place] [address] 16 Aug, 2012 [facility] [place] [facility] [address] [id number] [place] [address] Aug, [facility] [place] [facility] [address] [id number] [place] [address] Aug, [facility] [place] [facility] [address] [id number] [place] [address] Jul, [facility] [place] [facility] [address] [facility] [id number] [place] [address] Jul, [facility] [place] [facility] [address] [id number] [place] [address] Jul, [facility] [place] [facility] [address] [id number] [place] [address] Jul, [facility] [place] [facility] [address] [id number] [place] [address] Jul, [facility] [place] [facility] [address] [facility] [id number] [place] [address] Jul, [facility] [place] [facility] [address] [id number], [place] [address] Jul, [facility] [place] [facility] [address] [id number] [place] [address] Jul, [facility] [place] [facility] [address] [facility] [id number], [place] [address] Jun, [facility] [place] [facility] [address] [id number], [place] [address] Jun, [facility] [place] [facility] [address] [id number], [place] [address] Jun, [facility] [place] [facility] [address] [id number], [place] [address] Jun, [facility] [place] [facility] [address] [facility] [id number], [place] [address] Jun, [facility] [place] [facility] [address] [facility] [id number], [place] [address] Jun, [facility] [place] [facility] [address] [id number] [place] [address] May, [facility] [place] [facility] [address] [id number] [place] [address] May, [facility] [place] [facility] [address] [id number] [place] [address] May, [facility] [place] [facility] [address] [id number] [place] [address] May, [facility] [place] [facility] [address] [id number] [place] [address] Apr, [facility] [place] [facility] [address] [id number] [place] [address] 06 Apr, 2012 [facility] [place] [facility] [address] [id number] [place] [address] Mar, [facility] [place] [facility] [address] [id number] [place] [address] 28 Jan, 2012 [facility] [place] [facility] [address] [id number] [place] [address] 20 Jan, 2012 [facility] [place] [facility] [address] [id number] [place] [address] 16 Jan, 2012 [facility] [place] [facility] [address] [facility] [id number] [place] [address] 15 Jan, 2012 [facility] [place] [facility] [address] [id number] [place] [address] 14 Jan, 2012 [facility] [place] [facility] [address] [id number] [place] [address] 14 Jan, 2012 [facility] [place] [facility] [address] [id number] [place] [address] 07 Jan, 2012 [facility] [place] [facility] [address] [id number] [place] [address] December, [facility] [place] [facility] [address] [id number] [place] [address] December, [facility] [place] [facility] [address] [id number] [place] [address] December, [facility] [place] [facility] [address] [id number] [place] [address] December, [facility] [place] [facility] [address] [id number] [place] [address] Nov, [facility] [place] [facility] [address] [id number] [place] [address] Nov, [facility] [address] [id number] [place] [address] Oct, [facility] [place] [facility] [address] [id number] [place] [address] Oct, [facility] [address] [id number] [place] [address] Oct, [facility] [address] [id number] [place] [address] Sep, [facility] [place] [facility] [address] [id number] [place] [address] Sep, [facility] [address] [id number] [place] [address] Sep, [facility] [place] [facility] [address] [id number] [place] [address] Aug, [facility] [place] [facility] [address] [id number] [place] [address] Aug, [facility] [place] [facility] [address] [id number] [place] [address] Aug, [facility] [place] [facility] [address] [id number] [place] [address] Aug, [facility] [place] [facility] [address] [id number] [place] [address] Aug, [facility] [place] [facility] [address] [id number], [place] [address] Aug, [facility] [place] [facility] [address] [id number] [place] [address] Aug, [facility] [place] [facility] [address] [id number] [place] [address] Jul, [facility] [place] [facility] [address] [facility] [id number] [place] [address] Jul, [facility] [place] [facility] [address] [id number] [place] [address] 30 Jun, 2011 [facility] [place] [facility] [address] [id number] [place] [address], [place] [address] 28 Jun, 2011 [facility] [place] [facility] [address] [facility] [id number] [place] [address] 17 Jun, 2011 [facility] [place] [facility] [id number] [place] [address] 15 Jun, 2011 [facility] [place] [facility] [address] [facility] [id number] [place] [address] 14 Jun, 2011 [facility] [place] [facility] [address] [place] [id number] [place] [address] 14 Jun, 2011 [facility] [place] [facility] [address] [id number] [place] [address] Jun, [facility] [place] [facility] [address] [facility] [id number], [place] [address] Jun, [facility] [place] [facility] [address] [id number], [place] [address] Jun, [facility] [place] [facility] [address] [id number], [place] [address] Jun, [facility] [place] [facility] [address] [facility] [id number] [place] [address] May, [facility] [place] [facility] [address] [facility] [id number] [place] [address] May, [facility] [place] [facility] [address] [id number] [place] [address] May, [facility] [place] [facility] [address] [id number] [place] [address] 24 May, 2011 [facility] [place] [facility] [address] [id number] [place] [address] 18 May, 2011 [facility] [place] [facility] [address] [id number] [place] [address] 13 May, 2011 [facility] [place] [facility] [address] [id number] [place] [address] Feb, [facility] [place] [facility] [address] [id number] [place] [address] December, [facility] [place] [facility] [address] [id number] [place] [address] Jul, [facility] [place] [facility] [address] [id number] [place] [address] 29 Jul, 2010 [facility] [place] [facility] [address] [id number] [place] [address] 22 Jul, 2010 [facility] [place] [facility] [address] [id number] [place] [address] Jul, [facility] [place] [facility] [address] [id number] [place] [address] 15 Jun, 2010 [facility] [place] [facility] [address] [id number] [place] [address] 31 Jul, 2009 [facility] [place] [facility] [address] [id number] [place] [address] 23 Jul, 2009 [facility] [place] [facility] [address] [id number] [place] [address] 23 Jul, 2009 [facility] [place] [facility] [address] [id number] [place] [address] 17 Jul, 2009 [facility] [place] [facility] [address] [id number] [place] [address] Jul, [facility] [address] [facility] [id number], [place] [address] Jul, [facility] [address] [facility] [id number], [place] [address] Jan, [facility] [address] [facility] [id number], [place] [address] Sep, [facility] [address] [facility] [id number], [place] [address] Sep, IMMUNIZATIONS No Known Immunizations SOCIAL HISTORY Never Assessed REASON FOR VISIT lower Partial adjustment PLAN OF CARE Activity Details Follow Up FADUMO Reason: VITAL SIGNS Height 66 in 2017-10-28 Heart Rate 76 bpm 2017-10-28 Blood pressure systolic 127 mmHg 2017-10-28 Blood pressure diastolic 88 mmHg 2017-10-28 MEDICATIONS Medication Instructions Dosage Frequency Start Date End Date Duration Status InnoPran XL 80 MG Orally Once a day. Take along with 120mg 1 capsule at bedtime 30 Active Zofran Not-Taking Bactroban Not-Taking Fluconazole 150 MG Orally now and may repeat in 3 days 1 tablet May, Not-Taking Flagyl 500 MG Orally 4 times a day 1 tablet 6h Not-Taking Mucinex 600 MG Orally every 12 hrs 1 tablet as needed 12h Not-Taking Clorazepate Dipotassium 7.5 MG Orally 4 times a day 1 tablet as needed 6h 30 days Active Probiotic Not-Taking Cephalexin 500 MG Orally every 6 hrs 1 capsule 6h Not-Taking Percocet 5-325 MG Orally every 6 hrs 1 tablet as needed 6h Not-Taking Motrin Active Azithromycin Not-Taking [place] 7.5-325 MG Orally every 4-6 hours as needed 1 tablet Not-Taking Ibuprofen 600 MG Orally Three times a day 1 tablet with food or milk as needed 8h 27 May, 2017 Not-Taking Hyoscyamine Sulfate 0.125 mg 1 tablet by Oral route 4 times per day PRN Jul, Active Hydrochlorothiazide 25 MG Orally Once a day as needed TAKE ONE 90 days Active Omeprazole 20 MG TAKE ONE CAPSULE BY MOUTH ONCE DAILY BEFORE MEALS Jun, 30 Active RESULTS No Results PROCEDURES Procedure Date Ordered Result Body Site RESIN COMPOS - 1 SURFACE POSTERIOR October 28, 2017 RESIN COMPOS - 1 SURFACE POSTERIOR October 28, 2017 Billing Notes on claim October 28, 2017 INSTRUCTIONS MEDICATIONS ADMINISTERED No Known Medications [...]
--- OUTSIDE RECORDS SUMMARY | 2019-01-22 21:01 | XMS REPORT ---
Author Author ENMA CHU Organization [facility] Address [address] [place] [id number] Care Team Providers Care Clay Maker Name Role Phone ENMA CHU Unavailable PROBLEMS Type Condition ICD9-CM Code FRG14-RQ Code Onset Dates Condition Status SNOMED Code Problem Family history of diabetes mellitus Z83.3 Active 567369808 Problem Hot flashes N95.1 Active 742763819 Problem Excessive and frequent menstruation with irregular cycle N92.1 Active 362866940 Problem Diverticulitis K57.92 Active 016329773 Problem Gastroesophageal reflux disease with esophagitis K21.0 Active 733603512 Problem Mitral valve prolapse I34.1 Active 209388734 Problem Perimenopausal N95.1 Active 073488232724116 Problem Tachycardia R00.0 Active 1449448 Problem Abnormal uterine bleeding (AUB) N93.9 Active 63998739181328 Problem History of diverticulitis Z87.19 Active 529599052249777 Problem History of colon polyps Z86.010 Active 412935168 Problem Generalized anxiety disorder F41.1 Active 895633716 Problem Dense breast tissue R92.2 Active 106671503 Problem Hypertension I10 Active 43583467 Problem History of ovarian cyst Z87.42 Active 33406732 ALLERGIES Substance Reaction Event Type Date Status Sulfamethoxazole-Trimethoprim anaphylaxis Drug Allergy Oct, Active Erythromycin rash Drug Allergy Oct, Active Hydrocodone vomiting Non Drug Allergy Oct, Active ENCOUNTERS Encounter Location Date Diagnosis [facility] [address] [facility] [id number] [address] Mar, [facility] [address] [id number] [address] Mar, [facility] [address] [id number] [address] Feb, [facility] [address], [place] [address] Feb, [facility] [id number] [place] [address] Feb, Generalized anxiety disorder F41.1 and Bereavement Z63.4 [facility] [address], [place] [address] Feb, Generalized anxiety disorder F41.1 and Bereavement Z63.4 [facility] [address], [place] [address] Jan, Hypertension I10 and Acute non-recurrent maxillary sinusitis J01.00 [facility] [address] [address] December, [facility] [id number] [place] [address] December, Hypertension I10 [facility] [id number] [place] [address] December, Generalized anxiety disorder F41.1 [facility] [address] [id number], [place] [address] Oct, Encounter for dental examination Z01.20 [facility] [address] [id number], [place] [address] Oct, Encounter for dental examination Z01.20 [facility] [address] [id number] [address] Oct, Dental examination Z01.20 [facility] [address], [place] [address] Oct, Generalized anxiety disorder F41.1 [facility] [address] [id number], [place] [address] Aug, Dental examination Z01.20 [facility] [address], [place] [address] Aug, Generalized anxiety disorder F41.1 [facility] [address], [place] [address] Aug, [facility] [address] [id number], [place] [address] Aug, Encounter for dental examination Z01.20 [facility] [id number] [place] [address] Aug, Subacute maxillary sinusitis J01.00 [facility] [address] [id number], [place] [address] Jul, Dental examination Z01.20 [facility] [id number] [place] [address] Jul, Generalized anxiety disorder F41.1 [facility] [id number] [place] [address] Jul, Diverticulitis K57.92 [facility] [id number] [place] [address] Jun, Encounter for immunization Z23 [facility] [id number] [place] [address] 22 Jun, 2017 Dental examination Z01.20 [facility] [address] [place] [address] 14 Jun, 2017 Generalized anxiety disorder F41.1 [facility] [id number], [place] [address] 07 Jun, 2017 Dental examination Z01.20 [facility] [id number] [place] [address] May, [facility] [address] [place] [address] [id number] May, Dental examination Z01.20 [facility] [id number] [place] [address] [id number] May, Dental examination Z01.20 [facility] [address] [id number], [place] [address] May, Dental examination Z01.20 [facility] [address] [place] [address] May, [facility] [id number] [place] [address] May, Generalized anxiety disorder F41.1 [facility] [id number] [place] [address] May, Localized edema R60.0 ; Yeast vaginitis B37.3 and Gastroesophageal reflux disease with esophagitis K21.0 [facility] [id number] [place] [address] [id number] Apr, Dental examination Z01.20 [facility] [id number] [place] [address] Apr, Dental examination Z01.20 [facility] [id number] [place] [address] 05 Apr, 2017 Dental examination Z01.20 [facility] [id number] [place] [address] Mar, Dyspepsia R10.13 [facility] [address] [place] [address] Mar, Generalized anxiety disorder F41.1 [facility] [id number] [place] [address] Mar, Encounter for dental examination Z01.20 [facility] [id number] [place] [address] [id number] Mar, [facility] [address] [place] [address] [id number] Mar, Dental examination Z01.20 [facility] [id number] [place] [address] Feb, Hypertension I10 and Tachycardia R00.0 [facility] [id number] [address] Feb, [facility] [id number] [place] [address] Feb, Generalized anxiety disorder F41.1 [facility] [id number] [place] [address] [id number] Feb, Dental examination Z01.20 [facility] [id number] [place] [address] Jan, Generalized anxiety disorder F41.1 [facility] [id number] [place] [address] December, Generalized anxiety disorder F41.1 [facility] [id number] [place] [address] [id number] December, Encounter for dental examination Z01.20 [facility] [id number] [place] [address] Nov, [facility] [id number] [place] [address] Nov, [facility] [id number] [place] [address] Nov, Generalized anxiety disorder F41.1 [facility] [id number] [place] [address] Oct, [facility] [address] [place] [address] [id number] Oct, Dental examination Z01.20 [facility] [id number] [place] [address] Oct, Vaginal dryness N89.8 [facility] [id number] [place] [address] Oct, Pseudoseizures F44.5 [place] [id number] [place] [address] Oct, Generalized anxiety disorder F41.1 [place] [address] [address] 28 Sep, 2016 Abnormal uterine bleeding (AUB) N93.9 ; Vaginal dryness N89.8 and Screening breast examination Z12.39 [place] [address] [address] Sep, Dental examination Z01.20 [place] [address] [address] Sep, Generalized anxiety disorder F41.1 [place] [address] [address] 06 Sep, 2016 Unspecified ovarian cyst, right side N83.201 ; Unspecified ovarian cyst, left side N83.202 ; Yeast infection of the vagina B37.3 ; Mitral valve prolapse I34.1 and Hypertension I10 [place] [address] [address] Aug, Generalized anxiety disorder F41.1 [place] [address] [address] Jul, [place] [address] [address] Jul, Generalized anxiety disorder F41.1 [place] [id number] [place] [address] Jun, Generalized anxiety disorder F41.1 [place] [address] [address] May, Encounter for immunization Z23 [place] [address] [address] 17 May, 2016 Generalized anxiety disorder F41.1 and Depressive disorder, not elsewhere classified F32.9 [place] [address] [place] [address] 28 Apr, 2016 Hypertension I10 [facility] [id number] [place] [address] 22 Apr, 2016 Cervicalgia M54.2 [facility] [address] [place] [address] 12 Apr, 2016 Cervicalgia M54.2 [facility] [id number] [place] [address] Mar, Generalized anxiety disorder F41.1 and Depressive disorder, not elsewhere classified F32.9 [facility] [id number] [place] [address] [id number] 14 Feb, 2016 Visit for dental examination Z01.20 [facility] [id number] [place] [address] 11 Feb, 2016 Pseudoseizures F44.5 ; Migraine without status migrainosus, not intractable, unspecified migraine type G43.909 and Essential hypertension I10 [facility] [id number] [place] [address] [id number] Feb, Dental examination Z01.20 [facility] [id number] [place] [address] Feb, Generalized anxiety disorder F41.1 and Depressive disorder, not elsewhere classified F32.9 [facility] [id number] [place] [address] Jan, Tachycardia R00.0 [facility] [id number] [place] [address] December, Eustachian tube dysfunction, bilateral H69.83 [facility] [id number] [place] [address] December, Generalized anxiety disorder F41.1 and Depressive disorder, not elsewhere classified F32.9 [facility] [id number] [place] [address] Nov, [place] [id number] [place] [address] Nov, [address] [address] Nov, Hypertension I10 ; Onychomycosis B35.1 ; [...] and Complex cyst of left ovary N83.29 [id number] [place] [address] Nov, Sinusitis J32.9 [place] [id number] [place] [address] Oct, Complex cyst of left ovary N83.29 [place] [id number] [place] [address] Oct, Onychomycosis B35.1 [facility] [id number] [place] [address] [id number] 17 Oct, 2015 Dental examination Z01.20 [place] [id number] [place] [address] 09 Oct, 2015 Well woman exam Z01.419 [...] R92.2 and History of colon polyps Z86.010 [place] [id number] [place] [address] Oct, Generalized anxiety disorder F41.1 and Depressive disorder, not elsewhere classified F32.9 [facility] [id number] [place] [address] Sep, Hypertension I10 and Onychomycosis B35.1 [facility] [id number] [place] [address] Sep, Skin tags, multiple acquired L91.8 [facility] [id number] [place] [address] Aug, [facility] [id number] [place] [address] Aug, [facility] [id number] [place] [address] Aug, [facility] [id number] [place] [address] Aug, Generalized anxiety disorder F41.1 and Depressive disorder, not elsewhere classified F32.9 [facility] [id number] [place] [address] Jul, Skin lesion L98.9 [facility] [id number] [place] [address] Jun, Generalized anxiety disorder F41.1 and Depressive disorder, not elsewhere classified F32.9 [facility] [id number] [place] [address] Jun, [facility] [id number] [place] [address] Jun, Generalized anxiety disorder F41.1 [facility] [id number] [place] [address] May, Encounter for immunization Z23 and Right shoulder pain M25.511 [facility] [id number] [place] [address] Apr, [facility] [address], [place] [address] Apr, Generalized anxiety disorder 300.02 and Depressive disorder, not elsewhere classified 311 [facility] [address] [id number] Mar, Dental examination V72.2 [facility] [id number] [place] [address] Mar, Generalized anxiety disorder 300.02 and Depressive disorder, not elsewhere classified 311 [facility] [address] [place] [address] Mar, Depression, major, recurrent, 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.35 and 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 [facility] [address], [place] [address] Feb, Generalized anxiety disorder 300.02 and Depressive disorder, not elsewhere classified 311 [facility] [id number] [id number] Feb, Dental examination V72.2 [facility] [address], [place] [address] Jan, Generalized anxiety disorder 300.02 and Depressive disorder, not elsewhere classified 311 [facility] [id number], [place] [address] Jan, [facility] [address] [place] [address] December, Generalized anxiety disorder 300.02 and Depressive disorder, not elsewhere classified 311 [facility] [address] [place] [address] December, Major depressive disorder, recurrent, unspecified 296.30 and Panic disorder with agoraphobia 300.21 [facility] [address], [place] [address] 14 Nov, 2014 [facility] [place] [facility] [address] [facility] [id number] [place] [address] Nov, [facility] [place] [facility] [address] [id number] [place] [address] Oct, [facility] [place] [facility] [address] [id number] [place] [address] Oct, [facility] [place] [facility] [address] [id number] [place] [address] Oct, [facility] [place] [facility] [address] [id number] [place] [address] Oct, [facility] [place] [facility] [address] [id number] [place] [address] Sep, 2014 [facility] [place] [facility] [address] [facility] [id number] [place] [address] Sep, 2014 [facility] [place] [facility] [address] [facility] [id number] [place] [address] Sep, 2014 [facility] [place] [facility] [address] [facility] [id number] [place] [address] Sep, 2014 [facility] [place] [facility] [address] [facility] [id number] [place] [address] Sep, 2014 [facility] [place] [facility] [address] [facility] [id number] [place] [address] Sep, 2014 [facility] [place] [facility] [address] [facility] [id number], [place] [address] Sep, 2014 [facility] [place] [facility] [address] [facility] [id number] [place] [address] Sep, 2014 [facility] [place] [facility] [address] [facility] [id number] [place] [address] Sep, 2014 [facility] [place] [facility] [address] [facility] [id number], [place] [address] Sep, 2014 [facility] [place] [facility] [address] [facility] [id number], [place] [address] Aug, [facility] [place] [facility] [address] [id number] [place] [address] Aug, [facility] [place] [facility] [address] [id number] [place] [address] Jul, [facility] [place] [facility] [address] [facility] [id number] [place] [address] Jul, [facility] [place] [facility] [address] [id number] [place] [address] Jul, [facility] [place] [facility] [address] [id number] [place] [address] Jul, [facility] [place] [facility] [address] [id number] [place] [address] Jul, [facility] [place] [facility] [address] [facility] [id number] [place] [address] Jul, [facility] [place] [facility] [address] [id number] [place] [address] Jul, [facility] [place] [facility] [address] [id number] [place] [address] Jul, [facility] [place] [facility] [address] [facility] [id number] [place] [address] Jul, [facility] [place] [facility] [address] [id number] [place] [address] Jul, [facility] [place] [facility] [address] [id number] [place] [address] Jul, [facility] [place] [facility] [address] [id number] [place] [address] Jul, [facility] [place] [facility] [address] [facility] [id number] [place] [address] Jun, [facility] [place] [facility] [address] [facility] [id number] [place] [address] Jun, [facility] [place] [facility] [address] [id number] [place] [address] May, [facility] [place] [facility] [address] [id number] [place] [address] May, [facility] [place] [facility] [address] [id number] [place] [address] May, [facility] [place] [facility] [address] [id number] [place] [address] May, [facility] [place] [facility] [address] [id number] [place] [address] May, [facility] [place] [facility] [address] [id number] [place] [address] May, [facility] [place] [facility] [address] [id number] [place] [address] May, [facility] [place] [facility] [address] [id number] [place] [address] May, [facility] [place] [facility] [address] [id number] [place] [address] May, [facility] [place] [facility] [address] [id number] [place] [address] May, [facility] [place] [facility] [address] [id number] [place] [address] May, [facility] [place] [facility] [address] [id number] [place] [address] May, [facility] [place] [facility] [address] [id number] [place] [address] 30 Apr, 2014 [facility] [place] [facility] [address] [id number] [place] [address] 30 Apr, 2014 [facility] [place] [facility] [address] [id number] [place] [address] 29 Apr, 2014 [facility] [place] [facility] [address] [id number] [place] [address] Apr, [facility] [place] [facility] [address] [id number] [place] [address] Apr, [facility] [place] [facility] [address] [id number] [place] [address] Apr, [facility] [place] [facility] [address] [id number] [place] [address] Feb, [facility] [place] [facility] [address] [id number] [place] [address] Feb, [facility] [place] [facility] [address] [id number] [place] [address] Feb, [facility] [place] [facility] [address] [id number] [place] [address] Feb, [facility] [place] [facility] [address] [id number] [place] [address] Feb, [facility] [place] [facility] [address] [id number] [place] [address] Feb, [facility] [place] [facility] [address] [id number] [place] [address] Jan, [facility] [place] [facility] [address] [id number] [place] [address] Jan, [facility] [place] [facility] [address] [id number] [place] [address] Jan, [facility] [place] [facility] [address] [id number] [address] Jan, [facility] [place] [facility] [address] [id number] [place] [address] Jan, [facility] [place] [facility] [address] [id number] [place] [address] Jan, [facility] [place] [facility] [address] [id number] [place] [address] Jan, [facility] [place] [facility] [address] [id number] [place] [address] Jan, [facility] [place] [facility] [address] [id number] [place] [address] December, [facility] [place] [facility] [address] [id number] [place] [address] December, [facility] [place] [facility] [address] [id number] [place] [address] December, [facility] [place] [facility] [address] [id number] [place] [address] December, [facility] [place] [facility] [address] [id number] [place] [address] Nov, [facility] [place] [facility] [address] [id number] [place] [address] Nov, [facility] [place] [facility] [address] [id number] [place] [address] Nov, [facility] [place] [facility] [address] [id number] [place] [address] Nov, [facility] [place] [facility] [address] [id number] [place] [address] Nov, [facility] [place] [facility] [address] [id number] [place] [address] Nov, [facility] [place] [facility] [address] [id number] [place] [address] Nov, [facility] [place] [facility] [address] [id number] [place] [address] Nov, [facility] [place] [facility] [address] [id number] [place] [address] Oct, [facility] [place] [facility] [address] [id number] [place] [address] Oct, [facility] [place] [facility] [address] [id number] [place] [address] Sep, [facility] [place] [facility] [address] [id number] [place] [address] Sep, [facility] [place] [facility] [address] [id number] [place] [id number] Sep, [facility] [place] [facility] [address] [id number] [place] [address] Sep, [facility] [place] [facility] [address] [id number] [place] [address] Sep, [facility] [place] [facility] [address] [id number] [place] [address] Sep, [facility] [place] [facility] [address] [id number] [place] [address] Aug, [facility] [place] [facility] [address] [id number] [place] [address] Aug, [facility] [place] [facility] [address] [id number] [place] [address] Aug, [facility] [place] [facility] [address] [id number] [place] [address] Aug, [facility] [place] [facility] [address] [id number] [place] [address] Jul, [facility] [place] [facility] [address] [id number] [place] [address] Jul, [facility] [place] [facility] [address] [id number], [place] [address] Jul, [facility] [place] [facility] [address] [id number] [place] [address] Jul, [facility] [place] [facility] [address] [id number] [place] [address] Jun, [facility] [place] [facility] [address] [id number] [place] [address] Jun, [facility] [place] [facility] [address] [id number], [place] [address] May, [facility] [place] [facility] [address] [id number] [place] [address] 24 May, 2013 [facility] [place] [facility] [address] [id number] [place] [address] May, [facility] [place] [facility] [address] [id number] [place] [address] May, [facility] [place] [facility] [address] [id number] [place] [address] May, [facility] [place] [facility] [address] [id number] [place] [address] Apr, [facility] [place] [facility] [address] [id number] [place] [address] Apr, [facility] [place] [facility] [address] [id number] [place] [address] Mar, [facility] [place] [facility] [address] [id number] [place] [address] Mar, [facility] [place] [facility] [address] [id number] [place] [address] Mar, [facility] [place] [facility] [address] [id number] [place] [address] Mar, [facility] [place] [facility] [address] [id number] [place] [address] Feb, [facility] [place] [facility] [address] [id number] [place] [address] Feb, [facility] [place] [facility] [address] [id number] [place] [address] 16 Feb, 2013 [facility] [place] [facility] [address] [id number] [place] [address] Feb, [facility] [place] [facility] [address] [id number] [place] [address] Feb, [facility] [place] [facility] [address] [id number] [place] [address] Jan, [facility] [address] [id number] [place] [address] Jan, [facility] [place] [facility] [address] [id number] [place] [address] Jan, [facility] [place] [facility] [address] [id number] [place] [address] Jan, [facility] [place] [facility] [address] [id number] [place] [address] Jan, [facility] [place] [facility] [address] [id number] [place] [address] December, [facility] [place] [facility] [address] [id number] [place] [address] December, [facility] [place] [facility] [address] [id number] [place] [address] Nov, [facility] [place] [facility] [address] [id number] [place] [address] Nov, [facility] [place] [facility] [address] [id number] [place] [address] Oct, [facility] [place] [facility] [address] [id number] [place] [address] Oct, [facility] [place] [facility] [address] [id number] [place] [address] 05 Oct, 2012 [facility] [place] [facility] [address] [id number] [place] [address] 14 Sep, 2012 [facility] [place] [facility] [address] [id number] [place] [address] 24 Aug, 2012 [facility] [place] [facility] [address] [id number] [place] [address] 16 Aug, 2012 [facility] [place] [facility] [address] [id number] [place] [address] Aug, [facility] [place] [facility] [address] [id number] [place] [address] Aug, [facility] [place] [facility] [address] [id number] [place] [address] Jul, [facility] [place] [facility] [address] [facility] [id number] [place] [address] Jul, [facility] [place] [facility] [address] [id number] [place] [address] Jul, [facility] [place] [facility] [address] [id number] [place] [address] Jul, [facility] [place] [facility] [address] [id number] [place] [address] Jul, [facility] [place] [facility] [address] [facility] [id number] [place] [address] Jul, [facility] [place] [facility] [address] [id number], [place] [address] Jul, [facility] [place] [facility] [address] [id number] [place] [address] Jul, [facility] [place] [facility] [address] [facility] [id number], [place] [address] Jun, [facility] [place] [facility] [address] [id number], [place] [address] Jun, [facility] [place] [facility] [address] [id number], [place] [address] Jun, [facility] [place] [facility] [address] [id number], [place] [address] Jun, [facility] [place] [facility] [address] [facility] [id number], [place] [address] Jun, [facility] [place] [facility] [address] [facility] [id number], [place] [address] Jun, [facility] [place] [facility] [address] [id number] [place] [address] May, [facility] [place] [facility] [address] [id number] [place] [address] May, [facility] [place] [facility] [address] [id number] [place] [address] May, [facility] [place] [facility] [address] [id number] [place] [address] May, [facility] [place] [facility] [address] [id number] [place] [address] Apr, [facility] [place] [facility] [address] [id number] [place] [address] 06 Apr, 2012 [facility] [place] [facility] [address] [id number] [place] [address] Mar, [facility] [place] [facility] [address] [id number] [place] [address] 28 Jan, 2012 [facility] [place] [facility] [address] [id number] [place] [address] 20 Jan, 2012 [facility] [place] [facility] [address] [id number] [place] [address] 16 Jan, 2012 [facility] [place] [facility] [address] [facility] [id number] [place] [address] 15 Jan, 2012 [facility] [place] [facility] [address] [id number] [place] [address] 14 Jan, 2012 [facility] [place] [facility] [address] [id number] [place] [address] 14 Jan, 2012 [facility] [place] [facility] [address] [id number] [place] [address] 07 Jan, 2012 [facility] [place] [facility] [address] [id number] [place] [address] December, [facility] [place] [facility] [address] [id number] [place] [address] December, [facility] [place] [facility] [address] [id number] [place] [address] December, [facility] [place] [facility] [address] [id number] [place] [address] December, [facility] [place] [facility] [address] [id number] [place] [address] Nov, [facility] [place] [facility] [address] [id number] [place] [address] Nov, [facility] [address] [id number] [place] [address] Oct, [facility] [place] [facility] [address] [id number] [place] [address] Oct, [facility] [address] [id number] [place] [address] Oct, [facility] [address] [id number] [place] [address] Sep, [facility] [place] [facility] [address] [id number] [place] [address] Sep, [facility] [address] [id number] [place] [address] Sep, [facility] [place] [facility] [address] [id number] [place] [address] Aug, [facility] [place] [facility] [address] [id number] [place] [address] Aug, [facility] [place] [facility] [address] [id number] [place] [address] Aug, [facility] [place] [facility] [address] [id number] [place] [address] Aug, [facility] [place] [facility] [address] [id number] [place] [address] Aug, [facility] [place] [facility] [address] [id number], [place] [address] Aug, [facility] [place] [facility] [address] [id number] [place] [address] Aug, [facility] [place] [facility] [address] [id number] [place] [address] Jul, [facility] [place] [facility] [address] [facility] [id number] [place] [address] Jul, [facility] [place] [facility] [address] [id number] [place] [address] 30 Jun, 2011 [facility] [place] [facility] [id number] [place] [address], [place] [address] 28 Jun, 2011 [facility] [place] [facility] [address] [facility] [id number] [place] [address] 17 Jun, 2011 [facility] [place] [facility] [id number] [place] [address] 15 Jun, 2011 [facility] [place] [facility] [address] [facility] [id number] [place] [address] 14 Jun, 2011 [facility] [place] [facility] [address] [id number] [place] [address] 14 Jun, 2011 [facility] [place] [facility] [address] [id number] [place] [address] Jun, [facility] [place] [facility] [address] [facility] [id number], [place] [address] Jun, [facility] [place] [facility] [address] [id number], [place] [address] Jun, [facility] [place] [facility] [address] [id number], [place] [address] Jun, [facility] [place] [facility] [address] [facility] [id number] [place] [address] May, [facility] [place] [facility] [address] [facility] [id number] [place] [address] May, [facility] [place] [facility] [address] [id number] [place] [address] May, [facility] [place] [facility] [address] [id number] [place] [address] 24 May, 2011 [facility] [place] [facility] [address] [id number] [place] [address] 18 May, 2011 [facility] [place] [facility] [address] [id number] [place] [address] 13 May, 2011 [facility] [place] [facility] [address] [id number] [place] [address] Feb, [facility] [place] [facility] [address] [id number] [place] [address] December, [facility] [place] [facility] [address] [id number] [place] [address] Jul, [facility] [place] [facility] [address] [id number] [place] [address] 29 Jul, 2010 [facility] [place] [facility] [address] [id number] [place] [address] 22 Jul, 2010 [facility] [place] [facility] [address] [id number] [place] [address] Jul, [facility] [place] [facility] [address] [id number] [place] [address] 15 Jun, 2010 [facility] [place] [facility] [address] [id number] [place] [address] 31 Jul, 2009 [facility] [place] [facility] [address] [id number] [place] [address] 23 Jul, 2009 [facility] [place] [facility] [address] [id number] [place] [address] 23 Jul, 2009 [facility] [place] [facility] [address] [id number] [place] [address] 17 Jul, 2009 [facility] [place] [facility] [address] [id number] [place] [address] Jul, [facility] [address] [facility] [id number], [place] [address] Jul, [facility] [address] [facility] [id number], [place] [address] Jan, [facility] [address] [facility] [id number], [place] [address] Sep, [place] [address] [facility] [id number], [place] [address] Sep, IMMUNIZATIONS No Known Immunizations SOCIAL HISTORY Never Assessed REASON FOR VISIT Partial seat/ eval uppers PLAN OF CARE Activity Details Follow Up [facility] #3, 14 w/Dr. Chu-45mins Reason: VITAL SIGNS Height 66 in 2017-10-24 Heart Rate 71 bpm 2017-10-24 Blood pressure systolic 157 mmHg 2017-10-24 Blood pressure diastolic 99 mmHg 2017-10-24 MEDICATIONS Medication Instructions Dosage Frequency Start Date End Date Duration Status Zofran Not-Taking Clorazepate Dipotassium 7.5 MG Orally 4 times a day 1 tablet as needed 6h 30 days Active Cephalexin 500 MG Orally every 6 hrs 1 capsule 6h Not-Taking Percocet 5-325 MG Orally every 6 hrs 1 tablet as needed 6h Not-Taking Omeprazole 20 MG TAKE ONE CAPSULE BY MOUTH ONCE DAILY BEFORE MEALS Jun, 30 Active Hydrochlorothiazide 25 MG Orally Once a day as needed TAKE ONE 90 days Active Motrin Active Mucinex 600 MG Orally every 12 hrs 1 tablet as needed 12h Not-Taking Azithromycin Not-Taking Probiotic Not-Taking Fluconazole 150 MG Orally now and may repeat in 3 days 1 tablet May, Not-Taking Ibuprofen 600 MG Orally Three times a day 1 tablet with food or milk as needed 8h May, Not-Taking Fenton 7.5-325 MG Orally every 4-6 hours as needed 1 tablet Not-Taking Flagyl 500 MG Orally 4 times a day 1 tablet 6h Not-Taking Hyoscyamine Sulfate 0.125 mg 1 tablet by Oral route 4 times per day PRN Jul, Active Bactroban Not-Taking InnoPran XL 80 MG Orally Once a day. Take along with 120mg 1 capsule at bedtime 30 Active RESULTS No Results PROCEDURES Procedure Date Ordered Result Body Site MANDIBULAR PART DENTURE FLEX BASE October 24, 2017 Dental no charge October 24, 2017 Billing Notes on claim October 24, 2017 INSTRUCTIONS MEDICATIONS ADMINISTERED No Known Medications [...]
[2019-01-22 21:02] LABS: BACTERIA,URINE TRACE /HPF; HYALINE CASTS, URINE RARE /LPF; SQUAMOUS EPITHELIAL CELL,UR 0-2 /HPF
--- OUTSIDE RECORDS SUMMARY | 2019-01-22 21:02 | XMS REPORT ---
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 Name Role Phone ENMA SAMSON Unavailable PROBLEMS Type Condition ICD9-CM Code MOC35-IZ Code Onset Dates Condition Status SNOMED Code Problem Family history of diabetes mellitus Z83.3 Active 045852333 Problem Hot flashes N95.1 Active 502685888 Problem Excessive and frequent menstruation with irregular cycle N92.1 Active 105337204 Problem Diverticulitis K57.92 Active 446684493 Problem Gastroesophageal reflux disease with esophagitis K21.0 Active 696956635 Problem Mitral valve prolapse I34.1 Active 483539522 Problem Perimenopausal N95.1 Active 151793533970703 Problem Tachycardia R00.0 Active 1574733 Problem Abnormal uterine bleeding (AUB) N93.9 Active 47890513466508 Problem History of diverticulitis Z87.19 Active 408224753267870 Problem History of colon polyps Z86.010 Active 912667447 Problem Generalized anxiety disorder F41.1 Active 785625816 Problem Dense breast tissue R92.2 Active 137269192 Problem Hypertension I10 Active 95067815 Problem History of ovarian cyst Z87.42 Active 38964665 ALLERGIES Substance Reaction Event Type Date Status Sulfamethoxazole-Trimethoprim anaphylaxis Drug Allergy May, Active Erythromycin rash Drug Allergy May, Active Hydrocodone vomiting Non Drug Allergy May, Active ENCOUNTERS Encounter Location Date Diagnosis [facility] [address] [id number] [address] Jan, [facility] [address] [id number] [address] Jan, [facility] [address] [id number] [address] December, Generalized anxiety disorder F41.1 [facility] [address] [id number], [place] [address] 16 Oct, 2017 Encounter for dental examination Z01.20 [facility] [address] [id number], [place] [address] 06 Oct, 2017 Encounter for dental examination Z01.20 [facility] [address] [id number], [place] [address] 02 Oct, 2017 Dental examination Z01.20 [facility] [id number] [place] [address] Oct, Generalized anxiety disorder F41.1 [facility] [address] [id number], [place] [address] Aug, Dental examination Z01.20 [facility] [id number] [place] [address] Aug, Generalized anxiety disorder F41.1 [facility] [id number] [place] [address] Aug, [facility] [id number] [place] [address] 09 Aug, 2017 Encounter for dental examination Z01.20 [facility] [id number] [place] [address] Aug, Subacute maxillary sinusitis J01.00 [facility] [address] [id number], [place] [address] Jul, Dental examination Z01.20 [facility] [id number] [place] [address] 19 Jul, 2017 Generalized anxiety disorder F41.1 [facility] [id number] [place] [address] 11 Jul, 2017 Diverticulitis K57.92 [facility] [id number] [place] [address] Jun, Encounter for immunization Z23 [facility] [address] [id number], [place] [address] Jun, Dental examination Z01.20 [facility] [id number] [place] [address] 14 Jun, 2017 Generalized anxiety disorder F41.1 [facility] [address] [id number] [place] [address] 07 Jun, 2017 Dental examination Z01.20 [facility] [address] [id number] [place] [address] May, [facility] [id number] [place] [id number] May, Dental examination Z01.20 [facility] [address] [id number] [place] [id number] May, Dental examination Z01.20 [facility] [address] [id number], [place] [address] May, Dental examination Z01.20 [facility] [id number] [place] [address] May, [facility] [id number] [place] [address] May, Generalized anxiety disorder F41.1 [facility] [id number] [place] [address] May, Localized edema R60.0 ; Yeast vaginitis B37.3 and Gastroesophageal reflux disease with esophagitis K21.0 [facility] [address] [id number] [place] [phone] Apr, Dental examination Z01.20 [facility] [address] [id number], [place] [address] Apr, Dental examination Z01.20 [facility] [id number] [place] [address] 05 Apr, 2017 Dental examination Z01.20 [facility] [address] [id number] [address] Mar, Dyspepsia R10.13 [facility] [address] [id number] [address] Mar, Generalized anxiety disorder F41.1 [facility] [address] [id number], [place] [address] Mar, Encounter for dental examination Z01.20 [facility] [address] [id number] [place] [address] [id number] Mar, [facility] [id number] [place] [id number] Mar, Dental examination Z01.20 [facility] [address] [place] [address] Feb, Hypertension I10 and Tachycardia R00.0 [facility] [address] [id number], [place] [address] Feb, [facility] [id number] [place] [address] Feb, Generalized anxiety disorder F41.1 [facility] [address] [id number] Feb, Dental examination Z01.20 [facility] [address] [id number] [address] Jan, Generalized anxiety disorder F41.1 [facility] [id number] [address] December, Generalized anxiety disorder F41.1 [facility] [address] [id number] December, Encounter for dental examination Z01.20 [facility] [id number] [address] Nov, [facility] [id number] [place] [address] Nov, [facility] [id number] [place] [address] Nov, Generalized anxiety disorder F41.1 [facility] [id number] [place] [address] Oct, [facility] [id number] [place] [address] [phone] Oct, Dental examination Z01.20 [address] [facility] [id number] [place] [address] Oct, Vaginal dryness N89.8 [facility] [id number] [place] [address] Oct, Pseudoseizures F44.5 [facility] [id number] [place] [address] Oct, Generalized anxiety disorder F41.1 [facility] [id number] [place] [address] 28 Sep, 2016 Abnormal uterine bleeding (AUB) N93.9 ; Vaginal dryness N89.8 and Screening breast examination Z12.39 [facility] [id number] [place] [address] Sep, Dental examination Z01.20 [facility] [id number] [place] [address] Sep, Generalized anxiety disorder F41.1 [facility] [id number] [place] [address] 06 Sep, 2016 Unspecified ovarian cyst, right side N83.201 ; Unspecified ovarian cyst, left side N83.202 ; Yeast infection of the vagina B37.3 ; Mitral valve prolapse I34.1 and Hypertension I10 [facility] [id number] [place] [address] Aug, Generalized anxiety disorder F41.1 [facility] [id number] [place] [address] Jul, [facility] [id number] [place] [address] Jul, Generalized anxiety disorder F41.1 [facility] [address] [address] Jun, Generalized anxiety disorder F41.1 [facility] [address] [address] May, Encounter for immunization Z23 [facility] [address] [address] 17 May, 2016 Generalized anxiety disorder F41.1 and Depressive disorder, not elsewhere classified F32.9 [facility] [address] [address] Apr, Hypertension I10 [facility] [id number] [place] [address] 22 Apr, 2016 Cervicalgia M54.2 [facility] [id number] [place] [address] 12 Apr, 2016 Cervicalgia M54.2 [facility] [id number] [place] [address] 09 Mar, 2016 Generalized anxiety disorder F41.1 and Depressive disorder, not elsewhere classified F32.9 [facility] [id number] [place] [address] [id number] 14 Feb, 2016 Visit for dental examination Z01.20 [facility] [address] [address] 11 Feb, 2016 Pseudoseizures F44.5 ; Migraine without status migrainosus, not intractable, unspecified migraine type G43.909 and Essential hypertension I10 [facility] [id number] [place] [address] [phone] Feb, Dental examination Z01.20 [address] [address] [place] [address] Feb, Generalized anxiety disorder F41.1 and Depressive disorder, not elsewhere classified F32.9 [address] [facility] [id number] [place] [address] Jan, Tachycardia R00.0 [facility] [facility] [id number] [place] [address] December, Eustachian tube dysfunction, bilateral H69.83 [address] [id number] [place] [address] December, Generalized anxiety disorder F41.1 and Depressive disorder, not elsewhere classified F32.9 [facility] [id number] [place] [address] Nov, [address] [id number] [place] [address] Nov, [address] [id number] [place] [address] Nov, Hypertension I10 ; Onychomycosis B35.1 ; [...] and Complex cyst of left ovary N83.29 [facility] [id number] [place] [address] 14 Nov, 2015 Sinusitis J32.9 [address] [address] [place] [address] Oct, Complex cyst of left ovary N83.29 [place] [address] [place] [address] Oct, Onychomycosis B35.1 [facility] [address] [place] [address] [id number] 17 Oct, 2015 Dental examination Z01.20 [place] [address] [place] [address] 09 Oct, 2015 Well woman exam Z01.419 [...] R92.2 and History of colon polyps Z86.010 [facility] [place] [id number] [place] [address] Oct, Generalized anxiety disorder F41.1 and Depressive disorder, not elsewhere classified F32.9 [facility] [id number] [place] [address] Sep, Hypertension I10 and Onychomycosis B35.1 [place] [id number] [place] [address] 16 Sep, 2015 Skin tags, multiple acquired L91.8 [address] [id number] [place] [address] Aug, [address] [id number] [place] [address] Aug, [address] [id number] [place] [address] Aug, [address] [id number] [place] [address] Aug, Generalized anxiety disorder F41.1 and Depressive disorder, not elsewhere classified F32.9 [facility] [id number] [place] [address] Jul, Skin lesion L98.9 [facility] [id number] [place] [address] Jun, Generalized anxiety disorder F41.1 and Depressive disorder, not elsewhere classified F32.9 [facility] [address] [address] Jun, [place] [address] [address] Jun, Generalized anxiety disorder F41.1 [place] [address] [address] May, Encounter for immunization Z23 and Right shoulder pain M25.511 [place] [address] [address] Apr, [facility] [address] [address] 14 Apr, 2015 Generalized anxiety disorder 300.02 and Depressive disorder, not elsewhere classified 311 [facility] [id number] [place] [address] [id number] Mar, Dental examination V72.2 [place] [id number] [place] [address] Mar, Generalized anxiety disorder 300.02 and Depressive disorder, not elsewhere classified 311 [facility] [id number] [place] [address] Mar, Depression, major, recurrent, 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.35 and 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 [facility] [id number] [place] [address] Feb, Generalized anxiety disorder 300.02 and Depressive disorder, not elsewhere classified 311 [facility] [address] [id number] Feb, Dental examination V72.2 [facility] [address] [address] Jan, Generalized anxiety disorder 300.02 and Depressive disorder, not elsewhere classified 311 [facility] [id number] [address] Jan, [facility] [id number] [place] [address] December, Generalized anxiety disorder 300.02 and Depressive disorder, not elsewhere classified 311 [facility] [id number] [place] [address] December, Major depressive disorder, recurrent, unspecified 296.30 and Panic disorder with agoraphobia 300.21 [facility] [id number] [place] [address] Nov, [facility] [id number] [place] [address] Nov, [facility] [id number] [place] [address] Oct, [facility] [id number] [place] [address] Oct, [facility] [address] [address] Oct, [facility] [id number] [place] [address] Oct, [facility] [id number] [address] Sep, [facility] [id number] [place] [address] Sep, [facility] [address] [address] Sep, [facility] [id number] [place] [address] Sep, 2014 [facility] [place] [facility] [address] [id number] [place] [address] Sep, 2014 [facility] [place] [facility] [address] [id number] [place] [address] Sep, 2014 [facility] [place] [facility] [address] [id number] [place] [address] Sep, 2014 [facility] [place] [facility] [address] [id number] [place] [address] Sep, 2014 [facility] [place] [facility] [address] [id number] [place] [address] Sep, 2014 [facility] [place] [facility] [address] [id number] [place] [address] Sep, 2014 [facility] [place] [facility] [address] [id number] [place] [address] Aug, [facility] [place] [facility] [address] [id number] [place] [address] Aug, [facility] [place] [facility] [address] [id number] [place] [address] Jul, [facility] [place] [facility] [address] [id number] [place] [address] Jul, [facility] [place] [facility] [address] [id number] [place] [address] 18 Jul, 2014 [facility] [place] [facility] [address] [id number] [place] [address] 18 Jul, 2014 [facility] [place] [facility] [address] [id number] [place] [address] Jul, [facility] [place] [facility] [address] [id number] [place] [address] Jul, [facility] [place] [facility] [address] [id number] [place] [address] Jul, [facility] [place] [facility] [address] [id number] [place] [address] Jul, [facility] [place] [facility] [address] [id number] [place] [address] Jul, [facility] [place] [facility] [address] [id number] [place] [address] Jul, [facility] [place] [facility] [address] [id number] [place] [address] Jul, [facility] [place] [facility] [address] [id number] [place] [address] Jul, [facility] [place] [facility] [address] [id number] [place] [address] Jun, [facility] [place] [facility] [address] [id number] [place] [address] Jun, [facility] [place] [facility] [address] [id number] [place] [address] May, [facility] [place] [facility] [address] [id number] [place] [address] May, [facility] [place] [facility] [address] [id number] [place] [address] May, [facility] [place] [facility] [address] [id number] [place] [address] May, [facility] [place] [facility] [address] [id number] [place] [address] May, [facility] [place] [facility] [address] [id number] [place] [address] May, [facility] [place] [facility] [address] [id number] [place] [address] May, [facility] [place] [facility] [address] [id number] [place] [address] May, [facility] [place] [facility] [address] [id number] [place] [address] May, [facility] [place] [facility] [address] [id number] [place] [address] May, [facility] [place] [facility] [address] [id number] [place] [address] May, [facility] [place] [facility] [address] [id number] [place] [address] May, [facility] [place] [facility] [address] [id number] [place] [address] Apr, [facility] [place] [facility] [address] [id number] [place] [address] Apr, [facility] [place] [facility] [address] [id number] [place] [address] Apr, [facility] [place] [facility] [address] [id number] [place] [address] Apr, [facility] [place] [facility] [address] [id number] [place] [address] Apr, [facility] [place] [facility] [address] [id number] [place] [address] Apr, [facility] [place] [facility] [address] [id number] [place] [address] Feb, [facility] [place] [facility] [address] [id number] [place] [address] Feb, [facility] [place] [facility] [address] [id number] [place] [address] Feb, [facility] [place] [facility] [address] [id number] [place] [address] Feb, [facility] [place] [facility] [address] [id number] [place] [address] Feb, [facility] [place] [facility] [address] [id number] [place] [address] Feb, [facility] [place] [facility] [address] [id number] [place] [address] Jan, [facility] [place] [facility] [address] [id number] [place] [address] Jan, [facility] [place] [facility] [address] [id number] [place] [address] Jan, [facility] [place] [facility] [address] [id number] [place] [address] Jan, [facility] [place] [facility] [address] [id number] [place] [address] Jan, [facility] [place] [facility] [address] [id number] [place] [address] Jan, [facility] [place] [facility] [address] [id number] [place] [address] Jan, [facility] [place] [facility] [address] [id number] [place] [address] Jan, [facility] [place] [facility] [address] [id number] [place] [address] December, [facility] [place] [facility] [address] [id number] [place] [address] December, [facility] [place] [facility] [address] [id number] [place] [address] December, [facility] [place] [facility] [address] [id number] [place] [address] December, [facility] [place] [facility] [address] [id number] [place] [address] Nov, [facility] [place] [facility] [address] [id number] [place] [address] Nov, [facility] [place] [facility] [address] [id number] [place] [address] Nov, [facility] [place] [facility] [address] [id number] [place] [address] Nov, [facility] [place] [facility] [address] [id number] [place] [address] Nov, [facility] [place] [facility] [address] [id number] [place] [address] Nov, [facility] [place] [facility] [address] [id number] [place] [address] Nov, [facility] [place] [facility] [address] [id number] [place] [address] Nov, [facility] [place] [facility] [address] [id number] [place] [address] Oct, [facility] [place] [facility] [address] [id number] [place] [address] Oct, [facility] [place] [facility] [address] [id number] [place] [address] Sep, [facility] [place] [facility] [address] [id number] [place] [address] Sep, [facility] [place] [facility] [address] [id number] [place] [id number] Sep, [facility] [place] [facility] [address] [id number] [place] [address] Sep, [facility] [place] [facility] [address] [id number] [place] [address] Sep, [facility] [place] [facility] [address] [id number] [address] Sep, [facility] [place] [facility] [address] [id number] [place] [address] Aug, [facility] [place] [facility] [address] [id number] [place] [address] Aug, [facility] [place] [facility] [address] [id number] [place] [address] Aug, [facility] [place] [facility] [address] [id number] [place] [address] Aug, [facility] [place] [facility] [address] [id number] [place] [address] Jul, [facility] [place] [facility] [address] [id number] [place] [address] Jul, [facility] [place] [facility] [address] [id number] [place] [address] Jul, [facility] [place] [facility] [address] [id number] [place] [address] Jul, [facility] [place] [facility] [address] [id number] [place] [address] Jun, [facility] [place] [facility] [address] [id number] [place] [address] Jun, [facility] [facility] [address] [id number] [place] [address] May, [facility] [place] [facility] [address] [id number] [place] [address] May, [facility] [place] [facility] [address] [id number] [place] [address] May, [facility] [place] [facility] [address] [id number] [place] [address] May, [facility] [place] [facility] [address] [id number] [place] [address] May, [facility] [place] [facility] [address] [id number] [place] [address] 17 Apr, 2013 [facility] [place] [facility] [address] [id number] [place] [address] Apr, [facility] [place] [facility] [address] [id number] [place] [address] Mar, [facility] [place] [facility] [address] [id number] [place] [address] Mar, [facility] [place] [address] [id number] [place] [address] Mar, [facility] [address] [id number] [place] [address] Mar, [facility] [address] [id number] [place] [address] Feb, [facility] [address] [id number] [place] [address] Feb, [facility] [address] [id number] [place] [address] Feb, [facility] [address] [id number] [place] [address] Feb, [facility] [address] [id number] [place] [address] Feb, [facility] [address] [id number] [place] [address] Jan, [facility] [address] [id number] [place] [address] Jan, [facility] [address] [id number] [place] [address] Jan, [facility] [address] [id number] [place] [address] Jan, [facility] [address] [id number] [place] [address] Jan, [facility] [address] [id number] [place] [address] December, [facility] [address] [id number] [place] [address] December, [facility] [address] [id number] [place] [address] Nov, [facility] [address] [id number] [place] [address] Nov, [facility] [address] [id number] [place] [address] Oct, [facility] [address] [id number] [place] [address] Oct, [facility] [address] [id number] [place] [address] 05 Oct, 2012 [facility] [address] [id number] [place] [address] 14 Sep, 2012 [facility] [address] [id number] [place] [address] 24 Aug, 2012 [facility] [address] [id number] [place] [address] 16 Aug, 2012 [facility] [address] [id number] [place] [address] Aug, [facility] [address] [id number] [place] [address] Aug, [facility] [address] [id number] [place] [address] Jul, [facility] [address] [id number] [place] [address] Jul, [facility] [address] [id number] [place] [address] Jul, [facility] [address] [id number] [place] [address] Jul, [facility] [address] [id number] [place] [address] Jul, [facility] [address] [id number] [place] [address] Jul, [facility] [address] [id number] [place] [address] Jul, [facility] [address] [id number] [place] [address] Jul, [facility] [address] [id number] [place] [address] Jun, [facility] [address] [id number] [place] [address] Jun, [facility] [address] [id number] [place] [address] Jun, [facility] [address] [id number] [place] [address] Jun, [facility] [address] [id number] [place] [address] Jun, [facility] [address] [facility] [id number] [place] [address] Jun, [facility] [address] [id number] [place] [address] May, [facility] [address] [id number] [place] [address] May, [facility] [address] [id number] [place] [address] May, [facility] [address] [id number] [place] [address] May, [facility] [address] [id number] [place] [address] Apr, [facility] [address] [id number] [place] [address] Apr, [facility] [address] [id number] [place] [address] Mar, [facility] [address] [id number] [place] [address] Jan, [facility] [address] [id number] [place] [address] Jan, [facility] [address] [id number] [place] [address] 16 Jan, 2012 [facility] [address] [id number] [place] [address] 15 Jan, 2012 [facility] [address] [id number] [place] [address] 14 Jan, 2012 [facility] [address] [id number] [place] [address] 14 Jan, 2012 [facility] [address] [id number] [place] [address] 07 Jan, 2012 [facility] [address] [id number] [place] [address] December, [facility] [address] [id number] [place] [address] December, [facility] [address] [id number] [place] [address] December, [facility] [address] [id number] [place] [address] December, [facility] [address] [id number] [place] [address] Nov, [facility] [address] [id number] [place] [address] 05 Nov, 2011 [facility] [address] [id number] [place] [address] 29 Oct, 2011 [facility] [address] [id number] [place] [address] 28 Oct, 2011 [facility] [address] [id number] [place] [address] 15 Oct, 2011 [facility] [address] [id number] [place] [address] Sep, [facility] [address] [id number] [place] [address] 09 Sep, 2011 [facility] [address] [id number] [place] [address] Sep, [facility] [address] [id number] [place] [address] Aug, [facility] [address] [id number] [place] [address] Aug, [facility] [address] [id number] [place] [address] Aug, [facility] [address] [id number] [place] [address] Aug, [facility] [address] [id number] [place] [address] Aug, [facility] [address] [id number] [place] [address] Aug, [facility] [address] [id number] [place] [address] Aug, [facility] [address] [id number] [place] [address] Jul, [facility] [address] [id number] [place] [address] Jul, [facility] [address] [id number] [place] [address] 30 Jun, 2011 [facility] [address] [id number] [place] [address] 28 Jun, 2011 [facility] [address] [id number] [place] [address] 17 Jun, 2011 [facility] [address] [id number] [place] [address] 15 Jun, 2011 [facility] [address] [id number] [place] [address] 14 Jun, 2011 [facility] [address] [id number] [place] [address] 14 Jun, 2011 [facility] [address] [id number] [place] [address] 07 Jun, 2011 [facility] [address] [id number] [place] [address] Jun, [facility] [address] [id number] [place] [address], [place] [address] Jun, [facility] [address] [id number] [place] [address] Jun, [facility] [address] [id number] [place] [address] May, [facility] [address] [id number] [place] [address] May, [facility] [address] [id number] [place] [address] May, [facility] [address] [id number] [place] [address] 24 May, 2011 [facility] [address] [id number] [place] [address] May, [facility] [address] [id number] [place] [address] May, [facility] [address] [id number] [place] [address] Feb, [facility] [address] [id number] [place] [address] December, [facility] [address] [id number] [place] [address] Jul, [facility] [address] [id number] [place] [address] Jul, [facility] [address] [id number] [address] Jul, [facility] [id number] [address] Jul, [facility] [id number] [address] Jun, [facility] [id number] [address] Jul, [facility] [address] [facility] [id number] [place] [address] Jul, [facility] [address] [facility] [id number] [address] Jul, [facility] [id number] [place] [address] Jul, [facility] [id number] [place] [address] Jul, [facility] [id number] [place] [address] Jul, [facility] [id number] [address] Jan, [facility] [id number] [address] 16 Sep, 2008 [facility] [id number] [address] Sep, IMMUNIZATIONS No Known Immunizations SOCIAL HISTORY Never Assessed REASON FOR VISIT RCT PLAN OF CARE Activity Details Follow Up finish RCT #18, 19 Reason: VITAL SIGNS Height 66 in 2017-06-06 Heart Rate 65 bpm 2017-06-06 Blood pressure systolic 137 mmHg 2017-06-06 Blood pressure diastolic 102 mmHg 2017-06-06 MEDICATIONS Medication Instructions Dosage Frequency Start Date End Date Duration Status Hydrochlorothiazide 25 MG Orally Once a day as needed TAKE ONE 90 days Active InnoPran XL 80 MG Orally Once a day. Take along with 120mg 1 capsule at bedtime May, 30 Active Motrin Active Beaver 7.5-325 MG Orally every 4-6 hours as needed 1 tablet Active Fluconazole 150 MG Orally now and may repeat in 3 days 1 tablet May, Active Omeprazole 20 mg Orally Once a day, ac 1 capsule Mar, 30 day(s) Active Cephalexin 500 MG Orally every 6 hrs 1 capsule 6h Active InnoPran XL 120 MG Orally Once a day 1 capsule at bedtime 24h 30 Active Clorazepate Dipotassium 7.5 MG Orally 4 times a day 1 tablet as needed 6h 30 days Active Percocet 5-325 MG Orally every 6 hrs 1 tablet as needed 6h Active RESULTS No Results PROCEDURES Procedure Date Ordered Result Body Site Dental no charge Jun 06, 2017 INSTRUCTIONS MEDICATIONS ADMINISTERED No Known Medications [...]
--- OUTSIDE RECORDS SUMMARY | 2019-01-22 21:03 | XMS REPORT ---
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 Name Role Phone KVNG MERCHANT Unavailable PROBLEMS Type Condition ICD9-CM Code VVA99-LX Code Onset Dates Condition Status SNOMED Code Problem Family history of diabetes mellitus Z83.3 Active 152447505 Problem Hot flashes N95.1 Active 467672414 Problem Excessive and frequent menstruation with irregular cycle N92.1 Active 093280276 Problem Diverticulitis K57.92 Active 339496558 Problem Gastroesophageal reflux disease with esophagitis K21.0 Active 617401401 Problem Mitral valve prolapse I34.1 Active 952180572 Problem Perimenopausal N95.1 Active 200975740438527 Problem Tachycardia R00.0 Active 5005621 Problem Abnormal uterine bleeding (AUB) N93.9 Active 08102539793214 Problem History of diverticulitis Z87.19 Active 078639737180086 Problem History of colon polyps Z86.010 Active 139613455 Problem Generalized anxiety disorder F41.1 Active 101674680 Problem Dense breast tissue R92.2 Active 397482661 Problem Hypertension I10 Active 52712253 Problem History of ovarian cyst Z87.42 Active 74310405 ALLERGIES No Information ENCOUNTERS Encounter Location Date Diagnosis [facility] [address] [facility] [id number] [address] Mar, [facility] [address] [id number], [place] [address] Mar, [facility] [address] [id number], [place] [address] Feb, [facility] [address] [id number], [place] [address] Feb, [facility] [id number] [place] [address] Feb, Generalized anxiety disorder F41.1 and Bereavement Z63.4 [facility] [id number] [place] [address] Feb, Generalized anxiety disorder F41.1 and Bereavement Z63.4 [facility] [id number] [place] [address] Jan, Hypertension I10 and Acute non-recurrent maxillary sinusitis J01.00 [facility] [id number] [place] [address] December, [facility] [id number] [place] [address] December, Hypertension I10 [facility] [id number] [place] [address] December, Generalized anxiety disorder F41.1 [facility] [id number] [place] [address] Oct, Encounter for dental examination Z01.20 [facility] [id number] [place] [address] Oct, Encounter for dental examination Z01.20 [facility] [id number] [place] [address] Oct, Dental examination Z01.20 [facility] [id number] [place] [address] Oct, Generalized anxiety disorder F41.1 [facility] [id number] [place] [address] Aug, Dental examination Z01.20 [facility] [id number] [place] [address] Aug, Generalized anxiety disorder F41.1 [facility] [id number] [place] [address] Aug, [facility] [address] [id number], [place] [address] Aug, Encounter for dental examination Z01.20 [facility] [id number] [place] [address] Aug, Subacute maxillary sinusitis J01.00 [facility] [id number] [place] [address] Jul, Dental examination Z01.20 [facility] [id number] [place] [address] Jul, Generalized anxiety disorder F41.1 [facility] [id number] [place] [address] Jul, Diverticulitis K57.92 [facility] [id number] [place] [address] Jun, Encounter for immunization Z23 [facility] [id number] [place] [address] Jun, Dental examination Z01.20 [facility] [id number] [place] [address] 14 Jun, 2017 Generalized anxiety disorder F41.1 [facility] [id number], [place] [address] 07 Jun, 2017 Dental examination Z01.20 [facility] [id number] [place] [address] May, [facility] [address] [id number] [id number] May, Dental examination Z01.20 [facility] [address] [place] [id number] May, Dental examination Z01.20 [facility] [address] [id number], [place] [address] May, Dental examination Z01.20 [facility] [address] [id number], [place] [address] May, [facility] [id number] [place] [address] May, Generalized anxiety disorder F41.1 [facility] [id number] [place] [address] May, Localized edema R60.0 ; Yeast vaginitis B37.3 and Gastroesophageal reflux disease with esophagitis K21.0 [facility] [id number] [place] [id number] Apr, Dental examination Z01.20 [facility] [id number] [place] [address] Apr, Dental examination Z01.20 [facility] [address] [address] Apr, Dental examination Z01.20 [facility] [id number] [place] [address] Mar, Dyspepsia R10.13 [facility] [id number] [place] [address] Mar, Generalized anxiety disorder F41.1 [facility] [id number] [place] [address] Mar, Encounter for dental examination Z01.20 [facility] [address] [place] [id number] Mar, [facility] [id number] [place] [id number] Mar, Dental examination Z01.20 [facility] [id number] [place] [address] Feb, Hypertension I10 and Tachycardia R00.0 [facility] [address] [address] Feb, [facility] [address], [place] [address] Feb, Generalized anxiety disorder F41.1 [facility] [address] [address] Feb, Dental examination Z01.20 [facility] [id number] [place] [address] Jan, Generalized anxiety disorder F41.1 [facility] [id number] [place] [address] December, Generalized anxiety disorder F41.1 [facility] [id number] [place] [id number] December, Encounter for dental examination Z01.20 [facility] [id number] [place] [address] Nov, [facility] [id number] [place] [address] Nov, [facility] [id number] [place] [address] Nov, Generalized anxiety disorder F41.1 [facility] [address], [place] [address] Oct, [facility] [address] [place] [id number] Oct, Dental examination Z01.20 [facility] [address] [place] [address] Oct, Vaginal dryness N89.8 [facility] [id number] [place] [address] Oct, Pseudoseizures F44.5 [facility] [address], [place] [address] Oct, Generalized anxiety disorder F41.1 [facility] [id number] [place] [address] 28 Sep, 2016 Abnormal uterine bleeding (AUB) N93.9 ; Vaginal dryness N89.8 and Screening breast examination Z12.39 [facility] [id number] [place] [address] 20 Sep, 2016 Dental examination Z01.20 [place] [address] [address] 20 Sep, 2016 Generalized anxiety disorder F41.1 [place] [address] [address] 06 Sep, 2016 Unspecified ovarian cyst, right side N83.201 ; Unspecified ovarian cyst, left side N83.202 ; Yeast infection of the vagina B37.3 ; Mitral valve prolapse I34.1 and Hypertension I10 [facility] [id number] [place] [address] Aug, Generalized anxiety disorder F41.1 [facility] [id number] [place] [address] Jul, [place] [address] [address] Jul, Generalized anxiety disorder F41.1 [facility] [id number] [place] [address] Jun, Generalized anxiety disorder F41.1 [facility] [id number] [place] [address] May, Encounter for immunization Z23 [facility] [id number] [place] [address] 17 May, 2016 Generalized anxiety disorder F41.1 and Depressive disorder, not elsewhere classified F32.9 [facility] [id number] [place] [address] 28 Apr, 2016 Hypertension I10 [place] [address] [address] Apr, Cervicalgia M54.2 [facility] [address] [place] [address] Apr, Cervicalgia M54.2 [facility] [id number] [place] [address] Mar, Generalized anxiety disorder F41.1 and Depressive disorder, not elsewhere classified F32.9 [facility] [address] [id number] 14 Feb, 2016 Visit for dental examination Z01.20 [facility] [address] [address] 11 Feb, 2016 Pseudoseizures F44.5 ; Migraine without status migrainosus, not intractable, unspecified migraine type G43.909 and Essential hypertension I10 [facility] [id number] [place] [id number] Feb, Dental examination Z01.20 [facility] [address] [address] Feb, Generalized anxiety disorder F41.1 and Depressive disorder, not elsewhere classified F32.9 [facility] [id number] [place] [address] Jan, Tachycardia R00.0 [facility] [id number] [place] [address] December, Eustachian tube dysfunction, bilateral H69.83 [facility] [id number] [place] [address] December, Generalized anxiety disorder F41.1 and Depressive disorder, not elsewhere classified F32.9 [facility] [id number] [place] [address] Nov, [facility] [id number] [place] [address] Nov, [facility] [address] [place] [address] 20 Nov, 2016 Hypertension I10 ; Onychomycosis B35.1 ; Encounter [...] and Complex cyst of left ovary N83.29 [place] [facility] [address] [address] 14 Nov, 2015 Sinusitis J32.9 [place] [facility] [address] [address] Oct, Complex cyst of left ovary N83.29 [place] [address] [address] Oct, Onychomycosis B35.1 [facility] [address] [id number] 17 Oct, 2015 Dental examination Z01.20 [place] [address] [address] 09 Oct, 2015 Well woman exam Z01.419 [...] R92.2 and History of colon polyps Z86.010 [facility] [id number] [place] [address] 03 Oct, 2015 Generalized anxiety disorder F41.1 and Depressive disorder, not elsewhere classified F32.9 [facility] [id number] [place] [address] Sep, Hypertension I10 and Onychomycosis B35.1 [facility] [id number] [place] [address] 16 Sep, 2015 Skin tags, multiple acquired L91.8 [facility] [id number] [place] [address] Aug, [facility] [id number] [place] [address] Aug, [facility] [id number] [place] [address] Aug, [facility] [id number] [place] [address] Aug, Generalized anxiety disorder F41.1 and Depressive disorder, not elsewhere classified F32.9 [facility] [id number] [place] [address] Jul, Skin lesion L98.9 [facility] [id number] [place] [address] Jun, Generalized anxiety disorder F41.1 and Depressive disorder, not elsewhere classified F32.9 [facility] [id number] [place] [address] Jun, [facility] [id number] [place] [address] Jun, Generalized anxiety disorder F41.1 [facility] [id number] [place] [address] May, Encounter for immunization Z23 and Right shoulder pain M25.511 [facility] [id number] [place] [address] 28 Apr, 2015 [facility] [id number] [place] [address] Apr, Generalized anxiety disorder 300.02 and Depressive disorder, not elsewhere classified 311 [facility] [address] [address] Mar, Dental examination V72.2 [facility] [id number] [place] [address] Mar, Generalized anxiety disorder 300.02 and Depressive disorder, not elsewhere classified 311 [facility] [id number] [place] [address] Mar, Depression, major, recurrent, 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.35 and 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 [facility] [id number] [place] [address] Feb, Generalized anxiety disorder 300.02 and Depressive disorder, not elsewhere classified 311 [facility] [address] [place] [address] [id number] Feb, Dental examination V72.2 [facility] [address] [place] [address] Jan, Generalized anxiety disorder 300.02 and Depressive disorder, not elsewhere classified 311 [facility] [address] [place] [address] Jan, [facility] [id number] [place] [address] December, Generalized anxiety disorder 300.02 and Depressive disorder, not elsewhere classified 311 [facility] [address] [place] [address] December, Major depressive disorder, recurrent, unspecified 296.30 and Panic disorder with agoraphobia 300.21 [facility] [id number] [place] [address] Nov, [facility] [id number] [place] [address] Nov, [facility] [id number] [place] [address] Oct, [facility] [place] [facility] [address] [id number] [place] [address] Oct, [facility] [place] [facility] [address] [id number] [place] [address] Oct, [facility] [place] [facility] [address] [facility] [id number] [place] [address] Oct, [facility] [place] [facility] [address] [id number] [place] [address] Sep, 2014 [facility] [place] [facility] [address] [id number] [place] [address] Sep, 2014 [facility] [place] [facility] [address] [id number] [place] [address] Sep, 2014 [facility] [place] [facility] [address] [facility] [id number] [place] [address] Sep, 2014 [facility] [place] [facility] [address] [facility] [id number] [place] [address] Sep, 2014 [facility] [place] [facility] [address] [facility] [id number] [place] [address] Sep, 2014 [facility] [place] [facility] [address] [facility] [id number] [place] [address] Sep, [facility] [place] [facility] [address] [facility] [id number] [place] [address] Sep, 2014 [facility] [place] [facility] [address] [facility] [id number] [place] [address] Sep, 2014 [facility] [place] [facility] [address] [id number] [place] [address] Sep, 2014 [facility] [place] [facility] [address] [facility] [id number] [place] [address] Aug, [facility] [place] [facility] [address] [facility] [id number] [place] [address] Aug, [facility] [place] [facility] [address] [id number] [place] [address] Jul, [facility] [place] [facility] [address] [id number] [place] [address] Jul, [facility] [place] [facility] [address] [id number] [place] [address] Jul, [facility] [place] [facility] [address] [id number] [place] [address] Jul, [facility] [place] [facility] [address] [id number] [place] [address] Jul, [facility] [place] [facility] [address] [id number] [place] [address] Jul, [facility] [place] [facility] [address] [id number] [place] [address] Jul, [facility] [place] [facility] [address] [id number] [place] [address] Jul, [facility] [place] [facility] [address] [id number] [place] [address] Jul, [facility] [place] [facility] [address] [id number] [place] [address] Jul, [facility] [place] [facility] [address] [id number] [place] [address] Jul, [facility] [place] [facility] [address] [id number], [place] [address] Jul, [facility] [place] [facility] [address] [id number] [place] [address] Jun, [facility] [place] [facility] [address] [id number] [place] [address] Jun, [facility] [place] [facility] [address] [id number] [place] [address] May, [facility] [place] [facility] [address] [id number], [place] [address] May, [facility] [place] [facility] [address] [id number] [place] [address] May, [facility] [place] [facility] [address] [id number] [place] [address] May, [facility] [place] [facility] [address] [facility] [id number] [place] [address] May, [facility] [place] [facility] [address] [id number] [place] [address] May, [facility] [place] [facility] [address] [id number] [place] [address] May, [facility] [place] [facility] [address] [id number] [place] [address] May, [facility] [place] [facility] [address] [facility] [id number], [place] [address] May, [facility] [place] [facility] [address] [id number] [place] [address] May, [facility] [place] [facility] [address] [facility] [id number] [place] [address] May, [facility] [place] [facility] [address] [facility] [id number], [place] [address] May, [facility] [place] [facility] [address] [id number], [place] [address] 30 Apr, 2013 [facility] [place] [facility] [address] [id number], [place] [address] 30 Apr, 2013 [facility] [place] [facility] [address] [id number], [place] [address] 29 Apr, 2013 [facility] [place] [facility] [address] [facility] [id number], [place] [address] 29 Apr, 2013 [facility] [place] [facility] [address] [facility] [id number], [place] [address] 02 Apr, 2013 [facility] [place] [facility] [address] [id number] [place] [address] Apr, [facility] [place] [facility] [address] [id number] [place] [address] Feb, [facility] [place] [facility] [address] [id number] [place] [address] Feb, [facility] [place] [facility] [address] [id number] [place] [address] Feb, [facility] [place] [facility] [address] [id number] [place] [address] Feb, [facility] [place] [facility] [address] [id number] [place] [address] Feb, [facility] [place] [facility] [address] [id number] [place] [address] Feb, [facility] [place] [facility] [address] [id number] [place] [address] Jan, [facility] [place] [facility] [address] [id number] [place] [address] Jan, [facility] [place] [facility] [address] [id number] [place] [address] Jan, [facility] [place] [facility] [address] [id number] [place] [address] Jan, [facility] [place] [facility] [address] [id number] [place] [address] Jan, [facility] [place] [facility] [address] [id number] [place] [address] Jan, [facility] [place] [facility] [address] [id number] [place] [address] Jan, [facility] [place] [facility] [address] [id number] [place] [address] Jan, [facility] [place] [facility] [address] [id number] [place] [address] December, [facility] [address] [id number] [place] [address] December, [facility] [place] [facility] [address] [id number] [place] [address] December, [facility] [place] [facility] [address] [id number] [place] [address] December, [facility] [place] [facility] [address] [id number] [place] [address] Nov, [facility] [place] [facility] [address] [id number] [place] [address] Nov, [facility] [place] [facility] [address] [id number] [place] [address] Nov, [facility] [address] [id number] [place] [address] Nov, [facility] [place] [facility] [address] [id number] [place] [address] Nov, [facility] [place] [facility] [address] [id number] [place] [address] Nov, [facility] [place] [facility] [address] [id number] [place] [address] Nov, [facility] [place] [facility] [address] [id number] [place] [address] Nov, [facility] [place] [facility] [address] [id number] [place] [address] Oct, [facility] [place] [facility] [address] [id number] [place] [address] Oct, [facility] [place] [facility] [address] [id number] [place] [address] Sep, [facility] [place] [facility] [address] [id number] [place] [address] Sep, [facility] [place] [facility] [address] [id number] [place] [id number] Sep, [facility] [address] [id number] [place] [address] Sep, [facility] [place] [facility] [address] [id number] [place] [address] Sep, [facility] [address] [address] [id number] [place] [address] Sep, [facility] [place] [facility] [address] [id number] [place] [address] Aug, [facility] [address] [id number] [place] [address] Aug, [facility] [place] [facility] [address] [id number] [place] [address] Aug, [facility] [address] [id number] [place] [address] Aug, [facility] [address] [id number] [place] [address] Jul, [facility] [place] [facility] [address] [id number] [place] [address] Jul, [facility] [address] [id number] [place] [address] Jul, [facility] [place] [facility] [address] [id number] [place] [address] Jul, [facility] [place] [facility] [address] [id number] [place] [address] Jun, [facility] [place] [facility] [address] [id number] [place] [address] Jun, [facility] [place] [facility] [address] [id number] [place] [address] May, [facility] [place] [facility] [address] [id number] [place] [address] May, [facility] [place] [facility] [address] [id number] [place] [address] May, [facility] [place] [facility] [address] [id number] [place] [address] May, [facility] [place] [facility] [address] [id number] [place] [address] May, [facility] [place] [facility] [address] [id number] [place] [address] 17 Apr, 2013 [facility] [place] [facility] [address] [id number] [place] [address] Apr, [facility] [place] [facility] [address] [id number] [place] [address] 29 Mar, 2013 [facility] [place] [facility] [address] [id number] [place] [address] Mar, [facility] [place] [facility] [address] [id number] [place] [address] 15 Mar, 2013 [facility] [place] [facility] [address] [id number] [place] [address] Mar, [facility] [place] [facility] [address] [id number] [place] [address] Feb, [facility] [place] [facility] [address] [id number] [place] [address] Feb, [facility] [place] [facility] [address] [id number], [place] [address] 16 Feb, 2013 [facility] [place] [facility] [address] [id number] [place] [address] Feb, [facility] [place] [facility] [address] [id number] [place] [address] Feb, [facility] [place] [facility] [address] [id number] [place] [address] Jan, [facility] [place] [facility] [address] [id number], [place] [address] Jan, [facility] [address] [id number] [place] [address] Jan, [facility] [address] [id number], [place] [address] Jan, [facility] [address] [facility] [id number] [place] [address] Jan, [facility] [address] [id number] [place] [address] December, [facility] [address] [facility] [id number] [place] [address] December, [facility] [address] [id number] [place] [address] Nov, [facility] [address] [facility] [id number], [place] [address] Nov, [facility] [address] [id number] [place] [address] Oct, [facility] [address] [id number] [place] [address] Oct, [facility] [address] [facility] [id number] [place] [address] Oct, [facility] [address] [id number], [place] [address] Sep, [facility] [address] [id number], [place] [address] Aug, [facility] [address] [id number], [place] [address] Aug, [facility] [address] [id number], [place] [address] Aug, [facility] [address] [facility] [id number], [place] [address] Aug, [facility] [place] [facility] [address] [id number] [place] [address] Jul, [facility] [place] [facility] [address] [id number] [place] [address] Jul, [facility] [place] [facility] [address] [id number] [place] [address] Jul, [facility] [place] [facility] [address] [id number] [place] [address] Jul, [facility] [place] [facility] [address] [id number] [place] [address] Jul, [facility] [place] [facility] [address] [id number] [place] [address] Jul, [facility] [place] [facility] [address] [id number] [place] [address] Jul, [facility] [place] [facility] [address] [id number] [place] [address] Jul, [facility] [place] [facility] [address] [id number] [place] [address] Jun, [facility] [place] [facility] [address] [id number] [place] [address] Jun, [facility] [place] [facility] [address] [id number] [place] [address] Jun, [facility] [place] [facility] [address] [id number] [place] [address] Jun, [facility] [place] [facility] [address] [id number] [place] [address] Jun, [facility] [place] [facility] [address] [id number] [place] [address] Jun, [facility] [place] [facility] [address] [id number] [place] [address] May, [facility] [place] [facility] [address] [id number] [place] [address] May, [facility] [place] [facility] [address] [id number] [place] [address] 17 May, 2012 [facility] [place] [facility] [address] [id number] [place] [address] 17 May, 2012 [facility] [place] [facility] [address] [id number] [place] [address] 26 Apr, 2012 [facility] [place] [facility] [address] [id number] [place] [address] 06 Apr, 2012 [facility] [place] [facility] [address] [id number] [place] [address] Mar, [facility] [place] [facility] [address] [id number] [place] [address] 28 Jan, 2012 [facility] [place] [facility] [address] [id number] [place] [address] 20 Jan, 2012 [facility] [place] [facility] [address] [id number], [place] [address] 16 Jan, 2012 [facility] [place] [facility] [address] [id number] [place] [address] 15 Jan, 2012 [facility] [place] [facility] [address] [facility] [id number] [place] [address] 14 Jan, 2012 [facility] [place] [facility] [address] [id number], [place] [address] 14 Jan, 2012 [facility] [place] [facility] [address] [id number], [place] [address] 07 Jan, 2012 [facility] [place] [facility] [address] [id number] [place] [address] December, [facility] [place] [facility] [address] [id number], [place] [address] December, [facility] [place] [facility] [address] [facility] [id number] [place] [address] December, [facility] [place] [facility] [address] [id number] [place] [address] December, [facility] [address] [id number] [place] [address] Nov, [facility] [place] [facility] [address] [id number] [place] [address] Nov, [facility] [address] [id number] [place] [address] Oct, [facility] [address] [id number] [place] [address] Oct, [facility] [address] [id number] [place] [address] Oct, [facility] [address] [id number] [place] [address] Sep, [facility] [address] [id number] [place] [address] Sep, [facility] [address] [id number] [place] [address] Sep, [facility] [address] [id number] [place] [address] Aug, [facility] [address] [id number] [place] [address] Aug, [facility] [address] [id number] [place] [address] Aug, [facility] [address] [id number] [place] [address] Aug, [facility] [place] [facility] [address] [id number] [place] [address] Aug, [facility] [place] [facility] [address] [id number] [place] [address] Aug, [facility] [address] [id number] [place] [address] Aug, [facility] [place] [facility] [address] [id number] [place] [address] Jul, [facility] [place] [facility] [address] [id number] [place] [address] Jul, [facility] [place] [facility] [address] [id number] [place] [address] Jun, [facility] [place] [facility] [address] [id number] [place] [address] 28 Jun, 2011 [facility] [place] [facility] [address] [id number] [place] [address] 17 Jun, 2011 [facility] [place] [facility] [address] [id number] [place] [address] 15 Jun, 2011 [facility] [place] [facility] [address] [id number] [place] [address] 14 Jun, 2011 [facility] [place] [facility] [address] [id number], [place] [address] 14 Jun, 2011 [facility] [place] [facility] [address] [id number] [place] [address] Jun, [facility] [place] [facility] [address] [facility] [id number], [place] [address] Jun, [facility] [place] [facility] [address] [id number], [place] [address] Jun, [facility] [place] [facility] [address] [id number], [place] [address] Jun, [facility] [place] [facility] [address] [id number], [place] [address] May, [facility] [place] [facility] [address] [id number], [place] [address] May, [facility] [place] [facility] [address] [id number], [place] [address] May, [facility] [place] [facility] [address] [id number], [place] [address] 24 May, 2011 [facility] [address] [id number] [place] [address] 18 May, 2011 [facility] [address] [id number] [place] [address] 13 May, 2011 [facility] [address] [facility] [id number] [place] [address] Feb, [facility] [address] [id number] [place] [address] December, [facility] [address] [id number] [place] [address], [place] [address] 29 Jul, 2010 [facility] [address] [id number] [place] [address] 29 Jul, 2010 [facility] [address] [facility] [id number] [place] [address] 22 Jul, 2010 [facility] [address] [facility] [id number] [place] [address] 21 Jul, 2010 [facility] [address] [facility] [id number] [place] [address] 15 Jun, 2010 [facility] [address] [facility] [id number] [place] [address] 31 Jul, 2009 [facility] [address] [id number] [place] [address] 23 Jul, 2009 [facility] [place] [facility] [address] [id number], [place] [address] 23 Jul, 2009 [facility] [place] [facility] [address] [id number] [place] [address] 17 Jul, 2009 [facility] [place] [facility] [address] [facility] [id number] [place] [address] 17 Jul, 2009 [facility] [place] [facility] [address] [facility] [id number] [place] [address] 10 Jul, 2009 [facility] [place] [facility] [address] [facility] [id number] [place] [address] Jan, [facility] [address] [facility] [id number], [place] [address] 16 Sep, 2008 [facility] [address] [facility] [id number] [place] [address] 11 Sep, 2008 IMMUNIZATIONS No Known Immunizations SOCIAL HISTORY Never Assessed REASON FOR VISIT followup Anxiety PLAN OF CARE Activity Details Follow Up 4 Weeks Reason: Follow-up VITAL SIGNS MEDICATIONS Unknown Medications RESULTS No Results PROCEDURES Procedure Date Ordered Result Body Site Psychotherapy, patient &/family, 45 minutes, established patient October 23, 2017 INSTRUCTIONS MEDICATIONS ADMINISTERED No Known Medications [...]
--- OUTSIDE RECORDS SUMMARY | 2019-01-22 21:04 | XMS REPORT ---
Author Author ENMA SAMSON Organization [facility] Address [address] [address] Care Team Providers Care Accredited Legal Secretary Name Role Phone ENMA SAMSON Unavailable PROBLEMS Type Condition ICD9-CM Code XWT86-GB Code Onset Dates Condition Status SNOMED Code Problem Family history of diabetes mellitus Z83.3 Active 584154775 Problem Hot flashes N95.1 Active 758794001 Problem Excessive and frequent menstruation with irregular cycle N92.1 Active 398818046 Problem Diverticulitis K57.92 Active 447397396 Problem Gastroesophageal reflux disease with esophagitis K21.0 Active 921425824 Problem Mitral valve prolapse I34.1 Active 215930236 Problem Perimenopausal N95.1 Active [id number] Problem Tachycardia R00.0 Active 0634260 Problem Abnormal uterine bleeding (AUB) N93.9 Active 13090431449790 Problem History of diverticulitis Z87.19 Active 392727573159635 Problem History of colon polyps Z86.010 Active 225092382 Problem Generalized anxiety disorder F41.1 Active 822660192 Problem Dense breast tissue R92.2 Active 922864728 Problem Hypertension I10 Active 17270680 Problem History of ovarian cyst Z87.42 Active 98735041 ALLERGIES Substance Reaction Event Type Date Status Sulfamethoxazole-Trimethoprim anaphylaxis Drug Allergy Aug, Active Erythromycin rash Drug Allergy Aug, Active Hydrocodone vomiting Non Drug Allergy Aug, Active ENCOUNTERS Encounter Location Date Diagnosis [facility] [address] [facility] [id number] [address] Feb, [facility] [address] [id number] [address] Jan, Hypertension I10 and Acute non-recurrent maxillary sinusitis J01.00 [facility] [address] [id number] [address] December, [facility] [address] [facility] [id number], [place] [address] December, Hypertension I10 [facility] [address] [facility] [id number] [place] [address] December, Generalized anxiety disorder F41.1 [facility] [address] [id number], [place] [address] 16 Oct, 2017 Encounter for dental examination Z01.20 [facility] [id number] [place] [address] Oct, Encounter for dental examination Z01.20 [facility] [address] [id number] [place] [address] Oct, Dental examination Z01.20 [facility] [address] [place] [address] Oct, Generalized anxiety disorder F41.1 [facility] [address] [id number] [place] [address] Aug, Dental examination Z01.20 [facility] [id number] [place] [address] Aug, Generalized anxiety disorder F41.1 [facility] [address] [id number] [address] Aug, [facility] [address] [id number], [place] [address] Aug, Encounter for dental examination Z01.20 [facility] [id number] [place] [address] Aug, Subacute maxillary sinusitis J01.00 [facility] [address] [id number], [place] [address] Jul, Dental examination Z01.20 [facility] [id number] [place] [address] Jul, Generalized anxiety disorder F41.1 [facility] [address]00565100[place] [address] Jul, Diverticulitis K57.92 [facility] [address] [address] 28 Jun, 2017 Encounter for immunization Z23 [facility] [id number] [place] [address] 22 Jun, 2017 Dental examination Z01.20 [facility] [address] [place] [address] 14 Jun, 2017 Generalized anxiety disorder F41.1 [facility] [address] [id number], [place] [address] 07 Jun, 2017 Dental examination Z01.20 [facility] [id number] [place] [address] May, [facility] [id number] [place] [id number] May, Dental examination Z01.20 [facility] [id number] [place] [id number] May, Dental examination Z01.20 [facility] [address] [id number], [place] [address] May, Dental examination Z01.20 [facility] [address]00565100[place] [address] May, [facility] [id number] [place] [address] May, Generalized anxiety disorder F41.1 [facility] [address] [place] [address] 05 May, 2017 Localized edema R60.0 ; Yeast vaginitis B37.3 and Gastroesophageal reflux disease with esophagitis K21.0 [facility] [address] [id number] Apr, Dental examination Z01.20 [facility] [address] [id number], [place] [address] Apr, Dental examination Z01.20 [facility] [address] [id number], [place] [address] 05 Apr, 2017 Dental examination Z01.20 [facility] [id number] [place] [address] Mar, Dyspepsia R10.13 [facility] [id number] [place] [address] Mar, Generalized anxiety disorder F41.1 [facility] [id number] [place] [address] Mar, Encounter for dental examination Z01.20 [facility] [id number] [place] [id number] Mar, [facility] [id number] [place] [id number] Mar, Dental examination Z01.20 [facility] [id number] [place] [address] Feb, Hypertension I10 and Tachycardia R00.0 [facility] [id number], [place] [address] Feb, [facility] [id number] [place] [address] Feb, Generalized anxiety disorder F41.1 [facility] [address] [place] [id number] Feb, Dental examination Z01.20 [facility] [id number] [place] [address] Jan, Generalized anxiety disorder F41.1 [facility] [id number] [place] [address] December, Generalized anxiety disorder F41.1 [facility] [id number] [place] [address] [id number] December, Encounter for dental examination Z01.20 [facility] [id number] [place] [address] Nov, [facility] [id number] [place] [address] Nov, [facility] [id number] [place] [address] Nov, Generalized anxiety disorder F41.1 [facility] [id number] [place] [address] Oct, [facility] [id number] [place] [id number] Oct, Dental examination Z01.20 [facility] [id number] [place] [address] Oct, Vaginal dryness N89.8 [facility] [id number] [place] [address] Oct, Pseudoseizures F44.5 [facility] [id number] [place] [address] Oct, Generalized anxiety disorder F41.1 [facility] [id number] [place] [address] Sep, Abnormal uterine bleeding (AUB) N93.9 ; Vaginal dryness N89.8 and Screening breast examination Z12.39 [facility] [id number] [place] [address] Sep, Dental examination Z01.20 [facility] [id number] [place] [address] Sep, Generalized anxiety disorder F41.1 [facility] [id number] [place] [address] Sep, Unspecified ovarian cyst, right side N83.201 ; Unspecified ovarian cyst, left side N83.202 ; Yeast infection of the vagina B37.3 ; Mitral valve prolapse I34.1 and Hypertension I10 [facility] [address] [place] [address] Aug, Generalized anxiety disorder F41.1 [facility] [id number] [place] [address] Jul, [facility] [id number] [place] [address] Jul, Generalized anxiety disorder F41.1 [address] [id number] [place] [address] Jun, Generalized anxiety disorder F41.1 [place] [id number] [place] [address] May, Encounter for immunization Z23 [facility] [id number] [place] [address] 17 May, 2016 Generalized anxiety disorder F41.1 and Depressive disorder, not elsewhere classified F32.9 [facility] [id number] [place] [address] 28 Apr, 2016 Hypertension I10 [place] [id number] [place] [address] 22 Apr, 2016 Cervicalgia M54.2 [facility] [address] [place] [address] 12 Apr, 2016 Cervicalgia M54.2 [facility] [id number] [place] [address] 09 Mar, 2016 Generalized anxiety disorder F41.1 and Depressive disorder, not elsewhere classified F32.9 [facility] [address] [place] [id number] 14 Feb, 2016 Visit for dental examination Z01.20 [place] [address] [place] [address] 11 Feb, 2016 Pseudoseizures F44.5 ; Migraine without status migrainosus, not intractable, unspecified migraine type G43.909 and Essential hypertension I10 [facility] [address] [id number] 06 Feb, 2016 Dental examination Z01.20 [place] [id number] [place] [address] 05 Feb, 2016 Generalized anxiety disorder F41.1 and Depressive disorder, not elsewhere classified F32.9 [place] [id number] [place] [address] Jan, Tachycardia R00.0 [place] [id number] [place] [address] December, Eustachian tube dysfunction, bilateral H69.83 [place] [id number] [place] [address] December, Generalized anxiety disorder F41.1 and Depressive disorder, not elsewhere classified F32.9 [place] [address] [address] Nov, [place] [id number] [place] [address] Nov, [place] [id number] [place] [address] Nov, Hypertension I10 ; Onychomycosis B35.1 ; [...] and Complex cyst of left ovary N83.29 [place] [address] [address] 14 Nov, 2015 Sinusitis J32.9 [place] [address] [address] Oct, Complex cyst of left ovary N83.29 [place] [address] [address] Oct, Onychomycosis B35.1 [facility] [address] [id number] 17 Oct, 2015 Dental examination Z01.20 [address] [address] [address] 09 Oct, 2015 Well woman exam Z01.419 [...] R92.2 and History of colon polyps Z86.010 [place] [address] [address] Oct, Generalized anxiety disorder F41.1 and Depressive disorder, not elsewhere classified F32.9 [place] [address] [address] Sep, Hypertension I10 and Onychomycosis B35.1 [place] [address] [address] Sep, Skin tags, multiple acquired L91.8 [place] [address] [address] Aug, [place] [address] [address] Aug, [facility] [address] [place] [address] Aug, [facility] [id number] [place] [address] Aug, Generalized anxiety disorder F41.1 and Depressive disorder, not elsewhere classified F32.9 [facility] [id number] [place] [address] Jul, Skin lesion L98.9 [facility] [id number] [place] [address] Jun, Generalized anxiety disorder F41.1 and Depressive disorder, not elsewhere classified F32.9 [facility] [id number] [place] [address] Jun, [facility] [id number] [place] [address] Jun, Generalized anxiety disorder F41.1 [facility] [id number] [place] [address] May, Encounter for immunization Z23 and Right shoulder pain M25.511 [facility] [address] [place] [address] Apr, [facility] [id number] [place] [address] Apr, Generalized anxiety disorder 300.02 and Depressive disorder, not elsewhere classified [address] [facility] [address] [place] [id number] Mar, Dental examination V72.2 [facility] [id number] [place] [address] Mar, Generalized anxiety disorder 300.02 and Depressive disorder, not elsewhere classified 311 [facility] [address] [place] [address] Mar, Depression, major, recurrent, 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.35 and 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 [facility] [address] [address] Feb, Generalized anxiety disorder 300.02 and Depressive disorder, not elsewhere classified 311 [facility] [id number] [id number] 07 Feb, 2015 Dental examination V72.2 [facility] [id number] [place] [address] Jan, Generalized anxiety disorder 300.02 and Depressive disorder, not elsewhere classified 311 [facility] [address] [place] [address] Jan, [facility] [id number] [place] [address] December, Generalized anxiety disorder 300.02 and Depressive disorder, not elsewhere classified 311 [facility] [address] [place] [address] December, Major depressive disorder, recurrent, unspecified 296.30 and Panic disorder with agoraphobia 300.21 [facility] [address], [place] [address] Nov, [facility] [address], [place] [address] Nov, [facility] [address], [place] [address] Oct, [facility] [address], [place] [address] Oct, [facility] [address] [place] [address] Oct, [facility] [id number] [place] [address] Oct, [facility] [address] [address] Sep, [facility] [place] [facility] [address] [id number] [place] [address] Sep, 2014 [facility] [place] [facility] [address] [id number] [place] [address] Sep, 2014 [facility] [place] [facility] [address] [id number] [place] [address] Sep, 2014 [facility] [place] [facility] [address] [id number] [place] [address] Sep, 2014 [facility] [place] [facility] [address] [id number] [place] [address] Sep, 2014 [facility] [place] [facility] [address] [id number] [place] [address] Sep, 2014 [facility] [place] [facility] [address] [facility] [id number] [place] [address] Sep, 2014 [facility] [place] [facility] [address] [id number] [place] [address] Sep, 2014 [facility] [place] [facility] [address] [id number] [place] [address] Sep, 2014 [facility] [place] [facility] [address] [facility] [id number] [place] [address] Aug, [facility] [place] [facility] [address] [id number] [place] [address] Aug, [facility] [place] [facility] [address] [id number], [place] [address] Jul, [facility] [place] [facility] [address] [id number] [place] [address] Jul, [facility] [place] [facility] [address] [id number] [place] [address] Jul, [facility] [place] [facility] [address] [id number] [place] [address] Jul, [facility] [place] [facility] [address] [id number] [place] [address] Jul, [facility] [place] [facility] [address] [id number] [place] [address] Jul, [facility] [place] [facility] [address] [id number] [place] [address] Jul, [facility] [place] [facility] [address] [id number] [place] [address] Jul, [facility] [place] [facility] [address] [id number] [place] [address] Jul, [facility] [place] [facility] [address] [id number] [place] [address] Jul, [facility] [place] [facility] [address] [id number] [place] [address] Jul, [facility] [place] [facility] [address] [id number] [place] [address] Jul, [facility] [place] [facility] [address] [id number] [place] [address] Jun, [facility] [place] [facility] [address] [id number] [place] [address] Jun, [facility] [place] [facility] [address] [facility] [id number] [place] [address] May, [facility] [place] [facility] [address] [id number] [place] [address] May, [facility] [place] [facility] [address] [id number] [place] [address] May, [facility] [place] [facility] [address] [id number] [place] [address] May, [facility] [place] [facility] [address] [id number] [place] [address] May, [facility] [place] [facility] [address] [id number] [place] [address] May, [facility] [place] [facility] [address] [id number] [place] [address] May, [facility] [place] [facility] [address] [id number] [place] [address] May, [facility] [place] [facility] [address] [id number] [place] [address] May, [facility] [place] [facility] [address] [id number] [place] [address] May, [facility] [place] [facility] [address] [id number] [place] [address] May, [facility] [place] [facility] [address] [id number] [place] [address] May, [facility] [place] [facility] [address] [id number] [place] [address] Apr, [facility] [place] [facility] [address] [id number] [place] [address] 30 Apr, 2014 [facility] [place] [facility] [address] [id number] [place] [address] Apr, [facility] [place] [facility] [address] [id number] [place] [address] Apr, [facility] [place] [facility] [address] [id number] [place] [address] Apr, [facility] [place] [facility] [address] [id number] [place] [address] Apr, [facility] [place] [facility] [address] [id number] [place] [address] Feb, [facility] [place] [facility] [address] [id number] [place] [address] Feb, [facility] [place] [facility] [address] [id number] [place] [address] Feb, [facility] [place] [facility] [address] [id number] [place] [address] Feb, [facility] [place] [facility] [address] [id number] [place] [address] Feb, [facility] [place] [facility] [address] [id number] [place] [address] Feb, [facility] [place] [facility] [address] [id number] [place] [address] Jan, [facility] [place] [facility] [address] [id number] [place] [address] Jan, [facility] [place] [facility] [address] [id number] [place] [address] Jan, [facility] [place] [facility] [address] [id number] [place] [address] Jan, [facility] [place] [facility] [address] [id number] [place] [address] Jan, [facility] [place] [facility] [address] [id number] [place] [address] Jan, [facility] [place] [facility] [address] [id number] [place] [address] Jan, [facility] [place] [facility] [address] [id number] [place] [address] Jan, [facility] [place] [facility] [address] [id number] [place] [address] December, [facility] [place] [facility] [address] [id number] [place] [address] December, [facility] [place] [facility] [address] [id number] [place] [address] December, [facility] [place] [facility] [address] [id number] [place] [address] December, [facility] [place] [facility] [address] [id number] [place] [address] Nov, [facility] [place] [facility] [address] [id number] [place] [address] Nov, [facility] [address] [id number] [place] [address] Nov, [facility] [place] [facility] [address] [id number] [place] [address] Nov, [facility] [address] [id number] [place] [address] Nov, [facility] [place] [facility] [address] [id number] [place] [address] Nov, [facility] [address] [id number] [place] [address] Nov, [facility] [place] [facility] [address] [id number] [place] [address] Nov, [facility] [address] [id number] [place] [address] Oct, [facility] [address] [id number] [place] [address] Oct, [facility] [place] [facility] [address] [id number] [place] [address] Sep, [facility] [address] [id number] [place] [address] Sep, [facility] [address] [facility] [id number] [place] [id number] Sep, [facility] [place] [facility] [address] [id number] [place] [address] Sep, [facility] [place] [facility] [address] [id number] [place] [address] Sep, [facility] [place] [facility] [address] [id number] [place] [address] Sep, [facility] [place] [facility] [address] [id number] [place] [address] Aug, [facility] [place] [facility] [address] [id number] [place] [address] Aug, [facility] [place] [facility] [address] [id number] [place] [address] Aug, [facility] [place] [facility] [address] [id number] [place] [address] Aug, [facility] [place] [facility] [address] [id number] [place] [address] Jul, [facility] [place] [facility] [address] [id number] [place] [address] Jul, [facility] [place] [facility] [address] [id number] [place] [address] Jul, [facility] [place] [facility] [address] [id number] [place] [address] Jul, [facility] [place] [facility] [address] [id number] [address] Jun, [facility] [place] [facility] [address] [id number] [place] [address] Jun, [facility] [place] [facility] [address] [id number] [address] May, [facility] [place] [facility] [address] [id number], [place] [address] 24 May, 2013 [facility] [place] [facility] [address] [id number], [place] [address] May, [facility] [facility] [address] [id number] [place] [address] May, [facility] [facility] [address] [id number] [address] 10 May, 2013 [facility] [place] [facility] [address] [id number] [place] [address] 17 Apr, 2013 [facility] [place] [facility] [address] [id number] [place] [address] 10 Apr, 2013 [facility] [address] [id number] [place] [address] Mar, [facility] [address] [id number] [place] [address] Mar, [facility] [place] [facility] [address] [id number] [place] [address] Mar, [facility] [place] [facility] [address] [id number] [place] [address] Mar, [facility] [place] [facility] [address] [id number] [place] [address] Feb, [facility] [place] [facility] [address] [id number] [place] [address] Feb, [facility] [place] [facility] [address] [id number] [place] [address] Feb, [facility] [place] [facility] [address] [id number] [place] [address] Feb, [facility] [place] [facility] [address] [id number] [place] [address] Feb, [facility] [place] [facility] [address] [id number] [place] [address] Jan, [facility] [facility] [address] [id number] [place] [address] Jan, [facility] [facility] [address] [id number] [place] [address] Jan, [facility] [address] [id number] [place] [address] Jan, [facility] [address] [id number] [place] [address] Jan, [facility] [facility] [address] [id number] [place] [address] December, [facility] [address] [id number] [place] [address] December, [facility] [address] [id number] [place] [address] Nov, [facility] [address] [id number] [place] [address] Nov, [facility] [address] [id number] [place] [address] Oct, [facility] [address] [id number] [place] [address] Oct, [facility] [address] [id number] [place] [address] Oct, [facility] [address] [id number] [place] [address] Sep, [facility] [address] [id number] [place] [address] Aug, [facility] [address] [id number] [place] [address] Aug, [facility] [address] [id number] [place] [address] Aug, [facility] [address] [id number] [place] [address] Aug, [facility] [address] [id number] [place] [address] Jul, [facility] [address] [id number] [place] [address] Jul, [facility] [address] [id number] [place] [address] Jul, [facility] [address] [id number] [place] [address] Jul, [facility] [address] [id number] [address] Jul, [facility] [address] [id number] [place] [address] Jul, [facility] [address] [id number] [place] [address] Jul, [facility] [address] [facility] [id number] [place] [address] Jul, [facility] [address] [id number], [place] [address] Jun, [facility] [address] [id number] [place] [address] Jun, [facility] [address] [facility] [id number], [place] [address] Jun, [facility] [address] [facility] [id number], [place] [address] Jun, [facility] [address] [id number], [place] [address] Jun, [facility] [address] [id number], [place] [address] Jun, [facility] [address] [facility] [id number], [place] [address] May, [facility] [address] [id number], [place] [address] May, [facility] [address] [id number], [place] [address] May, [facility] [address] [id number], [place] [address] May, [facility] [address] [facility] [id number], [place] [address] Apr, [facility] [address] [facility] [id number], [place] [address] Apr, [facility] [address] [id number] [place] [address] 08 Mar, 2012 [facility] [address] [id number] [place] [address] 28 Jan, 2012 [facility] [address] [id number] [place] [address] 20 Jan, 2012 [facility] [address] [id number] [place] [address] 16 Jan, 2012 [facility] [address] [id number] [place] [address] 15 Jan, 2012 [facility] [address] [id number] [place] [address] 14 Jan, 2012 [facility] [address] [id number] [place] [address] 14 Jan, 2012 [facility] [address] [id number] [place] [address] 07 Jan, 2012 [facility] [address] [id number] [place] [address] December, [facility] [address] [id number] [place] [address] December, [facility] [address] [id number] [place] [address] December, [facility] [address] [id number] [place] [address] December, [facility] [address] [id number] [place] [address] Nov, [facility] [address] [id number] [place] [address] 05 Nov, 2011 [facility] [address] [id number] [place] [address] 29 Oct, 2011 [facility] [address] [id number] [place] [address] Oct, [facility] [address] [id number] [place] [address] Oct, [facility] [address] [id number] [place] [address] Sep, [facility] [address] [id number] [place] [address] Sep, [facility] [address] [id number] [place] [address] Sep, [facility] [address] [id number] [place] [address] Aug, [facility] [address] [id number] [place] [address] Aug, [facility] [address] [id number] [place] [address] Aug, [facility] [address] [id number] [place] [address] Aug, [facility] [address] [id number] [place] [address] Aug, [facility] [address] [id number] [place] [address] Aug, [facility] [address] [id number] [place] [address] Aug, [facility] [address] [id number], [place] [address] Jul, [facility] [address] [id number] [place] [address] Jul, [facility] [address] [id number] [place] [address] Jun, [facility] [address] [id number] [place] [address] Jun, [facility] [address] [id number] [place] [address] 17 Jun, 2011 [facility] [address] [id number] [place] [address] 15 Jun, 2011 [facility] [address] [id number] [place] [address] 14 Jun, 2011 [facility] [address] [id number] [place] [address] 14 Jun, 2011 [facility] [address] [id number] [place] [address] Jun, [facility] [address] [id number] [place] [address] Jun, [facility] [address] [id number] [place] [address] Jun, [facility] [address] [id number] [place] [address] Jun, [facility] [address] [id number] [place] [address] May, [facility] [address] [id number] [place] [address] May, [facility] [address] [facility] [id number] [place] [address] May, [facility] [address] [id number] [place] [address] 24 May, 2011 [facility] [address] [id number] [place] [address] 18 May, 2011 [facility] [address] [id number] [place] [address] May, [facility] [address] [id number] [place] [address] Feb, [facility] [address] [facility] [id number] [place] [address] December, [facility] [address] [facility] [id number], [place] [address] 29 Jul, 2010 [facility] [id number] [address] 29 Jul, 2010 [facility] [id number], [place] [address] Jul, [facility] [id number] [place] [address] Jul, [facility] [address] [facility] [id number], [place] [address] 15 Jun, 2010 [facility] [id number] [place] [address] 31 Jul, 2009 [facility] [id number] [address] Jul, [facility] [id number] [place] [address] Jul, [facility] [id number] [address] Jul, [facility] [id number], [place] [address] Jul, [facility] [id number], [place] [address] Jul, [facility] [id number] [address] Jan, [facility] [address] [id number] [address] 16 Sep, 2008 [facility] [id number] [address] Sep, IMMUNIZATIONS No Known Immunizations SOCIAL HISTORY Never Assessed REASON FOR VISIT Restorative/ seat crown PLAN OF CARE Activity Details Follow Up 1 hr Restorative and final impress Reason: VITAL SIGNS Height 66 in 2017-09-02 Heart Rate 70 bpm 2017-09-02 Blood pressure systolic 126 mmHg 2017-09-02 Blood pressure diastolic 72 mmHg 2017-09-02 MEDICATIONS Medication Instructions Dosage Frequency Start Date End Date Duration Status Flagyl 500 MG Orally 4 times a day 1 tablet 6h Unknown Azithromycin Unknown Percocet 5-325 MG Orally every 6 hrs 1 tablet as needed 6h Unknown Troy 7.5-325 MG Orally every 4-6 hours as needed 1 tablet Unknown Probiotic Unknown Ibuprofen 600 MG Orally Three times a day 1 tablet with food or milk as needed 8h May, Unknown Mucinex 600 MG Orally every 12 hrs 1 tablet as needed 12h Unknown InnoPran XL 80 MG Orally Once a day. Take along with 120mg 1 capsule at bedtime 30 Unknown Hydrochlorothiazide 25 MG Orally Once a day as needed TAKE ONE 90 days Unknown Clorazepate Dipotassium 7.5 MG Orally 4 times a day 1 tablet as needed 6h 30 days Unknown Zofran Unknown Bactroban Unknown Motrin Unknown Hyoscyamine Sulfate 0.125 mg 1 tablet by Oral route 4 times per day PRN Jul, Unknown Cephalexin 500 MG Orally every 6 hrs 1 capsule 6h Unknown Augmentin 875-125 MG Orally every 12 hrs 1 tablet 12h 08 Aug, 2017 Aug, 14 days Unknown Fluconazole 150 MG Orally now and may repeat in 3 days 1 tablet May, Unknown Omeprazole 20 MG TAKE ONE CAPSULE BY MOUTH ONCE DAILY BEFORE MEALS Jun, 30 Unknown RESULTS No Results PROCEDURES Procedure Date Ordered Result Body Site RESIN COMPOS - 2 SURFACES ANTERIOR Sep 02, 2017 RESIN COMPOS - 1 SURFACE POSTERIOR Sep 02, 2017 Billing Notes on claim Sep 02, 2017 RESIN COMPOS - 1 SURFACE POSTERIOR Sep 02, 2017 INSTRUCTIONS MEDICATIONS ADMINISTERED No Known Medications [...]
[2019-01-22 21:05] LABS: COLOR,URINE YELLOW
--- OUTSIDE RECORDS SUMMARY | 2019-01-22 21:05 | XMS REPORT ---
Author Author NIRMALA ZAMBRANO Organization [facility] Address [address] [place] [address] Care Team Providers Care Medical Director Of Hospice Name Role Phone NIRMALA ZAMBRANO Unavailable PROBLEMS Type Condition ICD9-CM Code GQZ09-VE Code Onset Dates Condition Status SNOMED Code Problem Family history of diabetes mellitus Z83.3 Active 095832230 Problem Hot flashes N95.1 Active 285233600 Problem Excessive and frequent menstruation with irregular cycle N92.1 Active 003504873 Problem Diverticulitis K57.92 Active 190422521 Problem Gastroesophageal reflux disease with esophagitis K21.0 Active 977804491 Problem Mitral valve prolapse I34.1 Active 601546497 Problem Perimenopausal N95.1 Active 844536525572024 Problem Tachycardia R00.0 Active 7041853 Problem Abnormal uterine bleeding (AUB) N93.9 Active 30626098980798 Problem History of diverticulitis Z87.19 Active 764548590500053 Problem History of colon polyps Z86.010 Active 295057506 Problem Generalized anxiety disorder F41.1 Active 271037068 Problem Dense breast tissue R92.2 Active 067441697 Problem Hypertension I10 Active 59465469 Problem History of ovarian cyst Z87.42 Active 73092188 ALLERGIES Substance Reaction Event Type Date Status Sulfamethoxazole-Trimethoprim anaphylaxis Drug Allergy May, Active Erythromycin rash Drug Allergy May, Active Hydrocodone vomiting Non Drug Allergy May, Active ENCOUNTERS Encounter Location Date Diagnosis [facility] [place] [address] [facility] [id number], [place] [address] Jan, [facility] [place] [address] [facility] [id number], [place] [address] Jan, [facility] [place] [address] [facility] [id number], [place] [address] December, [facility] [place] [address], [place] [address] December, Hypertension I10 [facility] [place] [id number] [place] [address] December, Generalized anxiety disorder F41.1 [facility] [address] [id number], [place] [address] 16 Oct, 2017 Encounter for dental examination Z01.20 [facility] [id number] [place] [address] Oct, Encounter for dental examination Z01.20 [facility] [id number] [place] [address] 02 Oct, 2017 Dental examination Z01.20 [facility] [place] [id number] [place] [address] Oct, Generalized anxiety disorder F41.1 [facility] [address] [id number] [place] [address] Aug, Dental examination Z01.20 [facility] [place] [id number] [place] [address] Aug, Generalized anxiety disorder F41.1 [facility] [place] [id number] [place] [address] Aug, [facility] [id number], [place] [address] Aug, Encounter for dental examination Z01.20 [facility] [place] [address] [id number], [place] [address] Aug, Subacute maxillary sinusitis J01.00 [facility] [id number] [place] [address] Jul, Dental examination Z01.20 [facility] [place] [address] [id number], [place] [address] Jul, Generalized anxiety disorder F41.1 [facility] [place] [address] [facility] [id number], [place] [address] Jul, Diverticulitis K57.92 [facility] [place] [id number] [place] [phone] Jun, Encounter for immunization Z23 [facility] [address] [id number], [place] [address] 22 Jun, 2017 Dental examination Z01.20 [facility] [place] [id number] [place] [address] 14 Jun, 2017 Generalized anxiety disorder F41.1 [facility] [id number] [place] [address] Jun, Dental examination Z01.20 [facility] [place] [id number] [place] [address] May, [facility] [id number] [place] [address] [id number] May, Dental examination Z01.20 [facility] [address] [id number] [place] [phone] May, Dental examination Z01.20 [facility] [address] [id number], [place] [address] May, Dental examination Z01.20 [facility] [place] [address], [place] [address] May, [facility] [place] [id number] [place] [address] May, Generalized anxiety disorder F41.1 [facility] [place] [id number] [place] [address] May, Localized edema R60.0 ; Yeast vaginitis B37.3 and Gastroesophageal reflux disease with esophagitis K21.0 [facility] [address] [id number] [place] [id number] Apr, Dental examination Z01.20 [facility] [address] [id number], [place] [address] Apr, Dental examination Z01.20 [facility] [address] [id number], [place] [address] 05 Apr, 2017 Dental examination Z01.20 [facility] [place] [address] [id number], [place] [address] Mar, Dyspepsia R10.13 [facility] [place] [address] [id number], [place] [address] Mar, Generalized anxiety disorder F41.1 [facility] [address] [id number], [place] [address] Mar, Encounter for dental examination Z01.20 [facility] [address] [id number] [place] [id number] Mar, [facility] [address] [id number] [place] [address] [id number] Mar, Dental examination Z01.20 [facility] [place] [address] [id number] [place] [address] Feb, Hypertension I10 and Tachycardia R00.0 [facility] [address] [id number], [place] [address] Feb, [facility] [place] [address] [id number], [place] [address] Feb, Generalized anxiety disorder F41.1 [facility] [address] [id number][place] [id number] Feb, Dental examination Z01.20 [facility] [place] [address] [id number] [place] [address] Jan, Generalized anxiety disorder F41.1 [facility] [place] [address] [id number], [place] [address] December, Generalized anxiety disorder F41.1 [facility] [address] [id number] December, Encounter for dental examination Z01.20 [facility] [place] [id number] [place] [phone] Nov, [facility] [place] [id number] [place] [phone] Nov, [facility] [place] [id number] [place] [phone] Nov, Generalized anxiety disorder F41.1 [facility] [place] [id number] [place] [address] Oct, [facility] [id number] [place] [address] [id number] Oct, Dental examination Z01.20 [facility] [place] [id number] [place] [address] Oct, Vaginal dryness N89.8 [facility] [place] [id number] [place] [phone] Oct, Pseudoseizures F44.5 [facility] [place] [id number] [place] [address] Oct, Generalized anxiety disorder F41.1 [facility] [place] [id number] [place] [address] Sep, Abnormal uterine bleeding (AUB) N93.9 ; Vaginal dryness N89.8 and Screening breast examination Z12.39 [facility] [place] [id number] [place] [address] Sep, Dental examination Z01.20 [facility] [place] [id number] [place] [address] Sep, Generalized anxiety disorder F41.1 [facility] [place] [id number] [place] [address] 06 Sep, 2016 Unspecified ovarian cyst, right side N83.201 ; Unspecified ovarian cyst, left side N83.202 ; Yeast infection of the vagina B37.3 ; Mitral valve prolapse I34.1 and Hypertension I10 [facility] [place] [id number] [place] [phone] 18 Aug, 2016 Generalized anxiety disorder F41.1 [facility] [place] [address] [address] 28 Jul, 2016 [facility] [place] [address] [address] Jul, Generalized anxiety disorder F41.1 [facility] [place] [address] [address] Jun, Generalized anxiety disorder F41.1 [facility] [place] [address] [address] 28 May, 2016 Encounter for immunization Z23 [facility] [place] [address] [address] 17 May, 2016 Generalized anxiety disorder F41.1 and Depressive disorder, not elsewhere classified F32.9 [facility] [place] [address] [address] 28 Apr, 2016 Hypertension I10 [facility] [place] [id number] [place] [id number] 22 Apr, 2016 Cervicalgia M54.2 [facility] [id number] [place] [phone] 12 Apr, 2016 Cervicalgia M54.2 [facility] [place] [address] [address] 09 Mar, 2016 Generalized anxiety disorder F41.1 and Depressive disorder, not elsewhere classified F32.9 [facility] [id number] [place] [address] [id number] 14 Feb, 2016 Visit for dental examination Z01.20 [facility] [place] [address] [address] 11 Feb, 2016 Pseudoseizures F44.5 ; Migraine without status migrainosus, not intractable, unspecified migraine type G43.909 and Essential hypertension I10 [facility] [id number] [place] [address] [id number] 06 Feb, 2016 Dental examination Z01.20 [facility] [place] [id number] [place] [phone] Feb, Generalized anxiety disorder F41.1 and Depressive disorder, not elsewhere classified F32.9 [place] [id number] [place] [phone] Jan, Tachycardia R00.0 [place] [id number] [place] [address] December, Eustachian tube dysfunction, bilateral H69.83 [place] [id number] [place] [phone] December, Generalized anxiety disorder F41.1 and Depressive disorder, not elsewhere classified F32.9 [place] [id number] [place] [address] Nov, [place] [id number] [place] [id number] 28 Nov, 2015 [place] [id number] [place] [address] 20 Nov, 2015 Hypertension I10 ; Onychomycosis [...] and Complex cyst of left ovary N83.29 [facility] [place] [id number] [place] [address] Nov, Sinusitis J32.9 [place] [address] [address] Oct, Complex cyst of left ovary N83.29 [place] [address] [address] Oct, Onychomycosis B35.1 [facility] [address] [id number] 17 Oct, 2015 Dental examination Z01.20 [place] [address] [address] 09 Oct, 2015 Well woman exam Z01.419 [...] R92.2 and History of colon polyps Z86.010 [place] [address] [address] Oct, Generalized anxiety disorder F41.1 and Depressive disorder, not elsewhere classified F32.9 [place] [address] [address] Sep, Hypertension I10 and Onychomycosis B35.1 [place] [address] [address] Sep, Skin tags, multiple acquired L91.8 [place] [address] [address] Aug, [place] [address] [address] Aug, [place] [address] [place] [address] Aug, [facility] [place] [id number] [place] [address] Aug, Generalized anxiety disorder F41.1 and Depressive disorder, not elsewhere classified F32.9 [facility] [place] [id number] [place] [address] Jul, Skin lesion L98.9 [facility] [place] [id number] [place] [address] Jun, Generalized anxiety disorder F41.1 and Depressive disorder, not elsewhere classified F32.9 [facility] [place] [address] [address] Jun, [place] [id number] [place] [address] Jun, Generalized anxiety disorder F41.1 [place] [address] [address] May, Encounter for immunization Z23 and Right shoulder pain M25.511 [place] [id number] [place] [address] Apr, [facility] [place] [id number] [place] [address] 14 Apr, 2015 Generalized anxiety disorder 300.02 and Depressive disorder, not elsewhere classified 311 [facility] [address] [place] [address] [id number] Mar, Dental examination V72.2 [facility] [place] [id number] [place] [address] Mar, Generalized anxiety disorder 300.02 and Depressive disorder, not elsewhere classified 311 [facility] [place] [id number] [place] [address] Mar, Depression, major, recurrent, 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.35 and 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 [facility] [place] [address], [place] [address] Feb, Generalized anxiety disorder 300.02 and Depressive disorder, not elsewhere classified 311 [facility] [address] [id number] Feb, Dental examination V72.2 [facility] [place] [address] [place] [address] Jan, Generalized anxiety disorder 300.02 and Depressive disorder, not elsewhere classified 311 [facility] [place] [id number], [place] [address] Jan, [facility] [place] [id number] [place] [address] December, Generalized anxiety disorder 300.02 and Depressive disorder, not elsewhere classified 311 [facility] [place] [address], [place] [address] December, Major depressive disorder, recurrent, unspecified 296.30 and Panic disorder with agoraphobia 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 [facility] [place] [address], [place] [address] Nov, [facility] [place] [id number] [place] [phone] Nov, [facility] [place] [address], [place] [address] Oct, [facility] [place] [address], [place] [address] Oct, [facility] [place] [address], [place] [address] Oct, [facility] [place] [id number] [place] [address] Oct, [facility] [place] [address], [place] [address] Sep, [facility] [place] [id number] [place] [address] Sep, 2014 [facility] [place] [facility] [address] [id number] [place] [address] Sep, 2014 [facility] [place] [facility] [address] [id number] [place] [address] Sep, 2014 [facility] [place] [facility] [address] [facility] [id number] [place] [address] Sep, 2014 [facility] [place] [facility] [address] [facility] [id number] [place] [address] Sep, 2014 [facility] [place] [facility] [address] [facility] [id number] [place] [address] Sep, 2014 [facility] [place] [facility] [address] [facility] [id number] [place] [address] Sep, 2014 [facility] [place] [facility] [address] [facility] [id number] [place] [address] Sep, 2014 [facility] [place] [facility] [address] [facility] [id number] [place] [address] Sep, [facility] [place] [facility] [address] [facility] [id number] [place] [address] Aug, [facility] [place] [facility] [address] [facility] [id number] [place] [address] Aug, [facility] [place] [facility] [address] [facility] [id number] [place] [address] Jul, [facility] [place] [facility] [address] [facility] [id number], [place] [address] Jul, [facility] [place] [facility] [address] [facility] [id number] [place] [address] Jul, [facility] [place] [facility] [address] [facility] [id number] [place] [address] Jul, [facility] [place] [facility] [address] [facility] [id number], [place] [address] Jul, [facility] [place] [facility] [address] [id number] [place] [address] Jul, [facility] [place] [facility] [address] [id number] [place] [address] Jul, [facility] [place] [facility] [address] [id number] [place] [address] Jul, [facility] [place] [facility] [address] [id number] [place] [address] Jul, [facility] [place] [facility] [address] [id number] [place] [address] Jul, [facility] [place] [facility] [address] [id number] [place] [address] Jul, [facility] [place] [facility] [address] [id number] [place] [address] Jul, [facility] [place] [facility] [address] [id number] [place] [address] Jun, [facility] [place] [facility] [address] [id number] [place] [address] Jun, [facility] [place] [facility] [address] [id number] [place] [address] May, [facility] [place] [facility] [address] [id number] [place] [address] May, [facility] [place] [facility] [address] [id number] [place] [address] May, [facility] [place] [facility] [address] [id number] [place] [address] May, [facility] [place] [facility] [address] [id number] [place] [address] May, [facility] [place] [facility] [address] [id number] [place] [address] May, [facility] [place] [facility] [address] [id number] [place] [address] May, [facility] [place] [facility] [address] [id number] [place] [address] May, [facility] [place] [facility] [address] [id number] [place] [address] May, [facility] [place] [facility] [address] [id number] [place] [address] May, [facility] [place] [facility] [address] [id number] [place] [address] May, [facility] [place] [facility] [address] [id number] [place] [address] May, [facility] [place] [facility] [address] [id number] [place] [address] Apr, [facility] [place] [facility] [address] [id number] [place] [address] Apr, [facility] [place] [facility] [address] [id number] [place] [address] Apr, [facility] [place] [facility] [address] [id number] [place] [address] Apr, [facility] [place] [facility] [address] [id number] [place] [address] Apr, [facility] [place] [facility] [address] [id number] [place] [address] Apr, [facility] [place] [facility] [address] [id number], [place] [address] Feb, [facility] [place] [facility] [address] [id number] [place] [address] Feb, [facility] [place] [facility] [address] [id number] [place] [address] Feb, [facility] [place] [facility] [address] [id number] [place] [address] Feb, [facility] [place] [facility] [address] [address] [id number] [place] [address] Feb, [facility] [place] [facility] [address] [id number] [place] [address] Feb, [facility] [place] [facility] [address] [id number] [place] [address] Jan, [facility] [place] [facility] [address] [id number] [place] [address] Jan, [facility] [place] [facility] [address] [id number] [place] [address] Jan, [facility] [place] [facility] [address] [id number] [place] [address] Jan, [facility] [place] [facility] [address] [id number] [place] [address] Jan, [facility] [place] [facility] [address] [id number] [place] [address] Jan, [facility] [place] [facility] [address] [id number] [place] [address] Jan, [facility] [place] [facility] [address] [id number] [place] [address] Jan, [facility] [place] [facility] [address] [id number] [place] [address] December, [facility] [place] [facility] [address] [id number] [place] [address] December, [facility] [place] [facility] [address] [id number] [place] [address] December, [facility] [place] [facility] [address] [id number] [place] [address] December, [facility] [place] [facility] [address] [id number] [place] [address] Nov, [facility] [place] [facility] [address] [id number] [place] [address] Nov, [facility] [place] [facility] [address] [id number] [place] [address] Nov, [facility] [place] [facility] [address] [id number] [place] [address] Nov, [facility] [place] [facility] [address] [id number] [place] [address] Nov, [facility] [place] [facility] [address] [id number] [place] [address] Nov, [facility] [place] [facility] [address] [id number] [place] [address] Nov, [facility] [place] [facility] [address] [id number] [place] [address] Nov, [facility] [place] [facility] [address] [id number] [place] [address] Oct, [facility] [place] [facility] [address] [id number] [place] [address] Oct, [facility] [place] [facility] [address] [id number] [place] [address] Sep, [facility] [place] [facility] [address] [id number] [place] [address] Sep, [facility] [place] [facility] [address] [id number] [place] [address] Sep, [facility] [place] [facility] [address] [id number], [place] [address] Sep, [facility] [place] [facility] [address] [id number] [place] [address] Sep, [facility] [place] [facility] [address] [id number] [place] [address] Sep, [facility] [place] [facility] [address] [id number] [place] [address] Aug, [facility] [place] [facility] [address] [id number] [place] [address] 15 Aug, 2013 [facility] [place] [facility] [address] [id number] [place] [address] Aug, [facility] [place] [facility] [address] [id number] [place] [address] Aug, [facility] [place] [facility] [address] [id number] [place] [address] Jul, [facility] [place] [facility] [address] [id number] [place] [address] Jul, [facility] [place] [facility] [address] [id number] [place] [address] Jul, [facility] [place] [facility] [address] [id number] [place] [address] Jul, [facility] [place] [facility] [address] [id number] [place] [address] Jun, [facility] [place] [facility] [address] [id number] [place] [address] Jun, [facility] [place] [facility] [address] [id number] [place] [address] 24 May, 2013 [facility] [place] [facility] [address] [id number] [place] [address] 24 May, 2013 [facility] [place] [facility] [address] [id number] [place] [address] 11 May, 2013 [facility] [place] [facility] [address] [id number] [place] [address] 11 May, 2013 [facility] [place] [facility] [address] [id number] [place] [address] 10 May, 2013 [facility] [place] [facility] [address] [id number] [place] [address] 17 Apr, 2013 [facility] [place] [facility] [address] [id number] [place] [address] 10 Apr, 2013 [facility] [place] [facility] [address] [id number] [place] [address] Mar, [facility] [place] [facility] [address] [id number] [place] [address] Mar, [facility] [place] [facility] [address] [id number] [place] [address] Mar, [facility] [place] [facility] [address] [id number] [place] [address] Mar, [facility] [place] [facility] [address] [id number] [place] [address] Feb, [facility] [place] [facility] [address] [id number] [place] [address] Feb, [facility] [place] [facility] [address] [id number] [place] [address] Feb, [facility] [place] [facility] [address] [id number] [place] [address] Feb, [facility] [place] [facility] [address] [id number] [place] [address] Feb, [facility] [place] [facility] [address] [id number] [place] [address] Jan, [facility] [place] [facility] [address] [id number] [place] [address] Jan, [facility] [place] [facility] [address] [id number] [place] [address] Jan, [facility] [place] [facility] [address] [id number] [place] [address] Jan, [facility] [place] [facility] [address] [id number] [place] [address] Jan, [facility] [place] [facility] [address] [id number] [place] [address] December, [facility] [place] [facility] [address] [id number] [place] [address] December, [facility] [address] [id number] [place] [address] Nov, [facility] [address] [id number] [place] [address] Nov, [facility] [address] [id number] [place] [address] Oct, [facility] [address] [id number] [place] [address] Oct, [facility] [address] [id number] [place] [address] Oct, [facility] [address] [id number] [place] [address] 14 Sep, 2012 [facility] [address] [id number] [place] [address] 24 Aug, 2012 [facility] [address] [id number] [place] [address] Aug, [facility] [address] [id number] [place] [address] Aug, [facility] [address] [id number] [place] [address] Aug, [facility] [address] [id number], [place] [address] Jul, [facility] [place] [facility] [address] [id number] [place] [address] Jul, [facility] [place] [facility] [address] [id number] [place] [address] Jul, [facility] [place] [facility] [address] [facility] [id number] [place] [address] Jul, [facility] [place] [facility] [address] [facility] [id number] [place] [address] Jul, [facility] [address] [id number] [place] [address] Jul, [facility] [address] [id number] [place] [address] Jul, [facility] [place] [facility] [address] [id number] [place] [address] Jul, [facility] [address] [id number] [place] [address] Jun, [facility] [place] [facility] [address] [id number] [place] [address] Jun, [facility] [address] [id number] [place] [address], [place] [address] Jun, [facility] [place] [facility] [address] [facility] [id number] [place] [address] Jun, [facility] [place] [facility] [address] [facility] [id number] [place] [address] Jun, [facility] [address] [facility] [id number] [place] [address] Jun, [facility] [place] [facility] [address] [facility] [id number] [place] [address] May, [facility] [address] [facility] [id number] [place] [address] May, [facility] [place] [facility] [address] [facility] [id number] [place] [address] May, [facility] [place] [facility] [address] [facility] [id number] [place] [address] May, [facility] [place] [facility] [address] [facility] [id number] [place] [address] Apr, [facility] [place] [facility] [address] [facility] [id number] [place] [address] Apr, [facility] [place] [facility] [address] [facility] [id number], [place] [address] Mar, [facility] [place] [facility] [address] [id number] [place] [address] 28 Jan, 2012 [facility] [place] [facility] [address] [id number] [place] [address] 20 Jan, 2012 [facility] [place] [facility] [address] [id number] [place] [address] 16 Jan, 2012 [facility] [place] [facility] [address] [id number] [place] [address] 15 Jan, 2012 [facility] [place] [facility] [address] [id number] [place] [address] 14 Jan, 2012 [facility] [place] [facility] [address] [id number] [place] [address] 14 Jan, 2012 [facility] [place] [facility] [address] [id number] [place] [address] 07 Jan, 2012 [facility] [place] [facility] [address] [id number] [place] [address] December, [facility] [place] [facility] [address] [id number] [place] [address] December, [facility] [place] [facility] [address] [id number] [place] [address] December, [facility] [place] [facility] [address] [id number] [place] [address] December, [facility] [place] [facility] [address] [id number] [place] [address] Nov, [facility] [place] [facility] [address] [id number] [place] [address] Nov, [facility] [place] [facility] [address] [id number] [place] [address] Oct, [facility] [place] [facility] [address] [id number] [place] [address] Oct, [facility] [place] [facility] [address] [id number] [place] [address] Oct, [facility] [address] [id number] [place] [address] Sep, [facility] [place] [facility] [address] [id number] [place] [address] Sep, [facility] [address] [id number] [place] [address] Sep, [facility] [place] [facility] [address] [id number] [place] [address] Aug, [facility] [address] [id number] [place] [address] Aug, [facility] [place] [facility] [address] [id number] [place] [address] Aug, [facility] [address] [id number] [place] [address] Aug, [facility] [address] [id number] [place] [address] Aug, [facility] [address] [id number] [place] [address] Aug, [facility] [address] [facility] [id number] [place] [address] Aug, [facility] [address] [id number] [place] [address] Jul, [facility] [place] [facility] [address] [id number] [place] [address] Jul, [facility] [place] [facility] [address] [id number] [place] [address] Jun, [facility] [place] [facility] [address] [id number] [place] [address] Jun, [facility] [place] [facility] [address] [id number] [place] [address] Jun, [facility] [place] [facility] [address] [id number] [place] [address] 15 Jun, 2011 [facility] [place] [facility] [address] [id number] [place] [address] 14 Jun, 2011 [facility] [place] [facility] [address] [id number] [place] [address] Jun, [facility] [place] [facility] [address] [id number] [place] [address] Jun, [facility] [place] [facility] [address] [id number] [place] [address] Jun, [facility] [place] [facility] [address] [id number] [place] [address] Jun, [facility] [place] [facility] [address] [id number] [place] [address] Jun, [facility] [place] [facility] [address] [id number] [place] [address] May, [facility] [place] [facility] [address] [id number] [place] [address] May, [facility] [place] [facility] [address] [id number] [place] [address] May, [facility] [place] [facility] [address] [id number] [place] [address] May, [facility] [place] [facility] [address] [id number] [place] [address] May, [facility] [place] [facility] [address] [id number] [place] [address] May, [facility] [place] [facility] [address] [id number] [place] [address] Feb, [facility] [place] [facility] [address] [id number] [place] [address] December, [facility] [place] [facility] [address] [id number] [place] [address] Jul, [facility] [place] [address] [id number], [place] [address] Jul, [facility] [place] [address], [place] [address] Jul, [facility] [place] [address], [place] [address] Jul, [facility] [place] [address], [place] [address] 15 Jun, 2010 [facility] [place] [address], [place] [address] Jul, [facility] [place] [address], [place] [address] Jul, [facility] [place] [address], [place] [address] Jul, [facility] [place] [address], [place] [address] Jul, [facility] [place] [address], [place] [address] Jul, [facility] [place] [address], [place] [address] Jul, [facility] [place] [address], [place] [address] Jan, [facility] [place] [address], [place] [address] 16 Sep, 2008 [facility] [place] [address] [id number], [place] [address] Sep, IMMUNIZATIONS No Known Immunizations SOCIAL HISTORY Never Assessed REASON FOR VISIT [facility] PLAN OF CARE Activity Details Follow Up 1 Week Reason:endo with Chu VITAL SIGNS Height 66 in 2017-06-23 Blood pressure systolic 107 mmHg 2017-06-23 Blood pressure diastolic 56 mmHg 2017-06-23 MEDICATIONS Medication Instructions Dosage Frequency Start Date End Date Duration Status InnoPran XL 80 MG Orally Once a day. Take along with 120mg 1 capsule at bedtime May, 30 Active Hydrochlorothiazide 25 MG Orally Once a day as needed TAKE ONE 90 days Active InnoPran XL 120 MG Orally Once a day 1 capsule at bedtime 24h 30 Active Omeprazole 20 mg Orally Once a day, ac 1 capsule Mar, 30 day(s) Active Bactroban Active Clorazepate Dipotassium 7.5 MG Orally 4 times a day 1 tablet as needed 6h 30 days Active RESULTS No Results PROCEDURES Procedure Date Ordered Result Body Site Dental no charge Jun 23, 2017 INSTRUCTIONS MEDICATIONS ADMINISTERED No Known [...]
--- OUTSIDE RECORDS SUMMARY | 2019-01-22 21:06 | XMS REPORT ---
Author Author LORE OMALLEY [facility] Address [address] [place] [address] Care Team Providers Care [employer] Installer Name Role Phone LORE OMALLEY Unavailable PROBLEMS Type Condition ICD9-CM Code OTG88-GG Code Onset Dates Condition Status SNOMED Code Problem Family history of diabetes mellitus Z83.3 Active 229162219 Problem Hot flashes N95.1 Active 210933165 Problem Excessive and frequent menstruation with irregular cycle N92.1 Active 257953674 Problem Diverticulitis K57.92 Active 295880734 Problem Gastroesophageal reflux disease with esophagitis K21.0 Active 343639675 Problem Mitral valve prolapse I34.1 Active 218112826 Problem Perimenopausal N95.1 Active 351906664358324 Problem Tachycardia R00.0 Active 1180632 Problem Abnormal uterine bleeding (AUB) N93.9 Active 83508133273560 Problem History of diverticulitis Z87.19 Active 628764589716340 Problem History of colon polyps Z86.010 Active 701740734 Problem Generalized anxiety disorder F41.1 Active 094077066 Problem Dense breast tissue R92.2 Active 218339690 Problem Hypertension I10 Active 45346140 Problem History of ovarian cyst Z87.42 Active 49898103 ALLERGIES No Information ENCOUNTERS Encounter Location Date Diagnosis [facility], [place] [address] [id number] [address] Jan, [facility], [place] [address] [id number] [address] Jan, [facility], [place] [address] [id number] [address] December, [facility], [place] [address] [id number] [address] December, Hypertension I10 [facility], [place] [address] [address] December, Generalized anxiety disorder F41.1 [facility] [address] [id number], [place] [address] 16 Oct, 2017 Encounter for dental examination Z01.20 [facility] [address] [id number], [place] [address] 06 Oct, 2017 Encounter for dental examination Z01.20 [facility] [address] [id number], [place] [address] 02 Oct, 2017 Dental examination Z01.20 [facility], [place] [id number] [place] [address] Oct, Generalized anxiety disorder F41.1 [facility] [address] [id number], [place] [address] Aug, Dental examination Z01.20 [facility], [place] [id number] [place] [address] Aug, Generalized anxiety disorder F41.1 [facility], [place] [id number] [place] [address] Aug, [facility] [id number], [place] [address] Aug, Encounter for dental examination Z01.20 [facility], [place] [id number] [place] [address] Aug, Subacute maxillary sinusitis J01.00 [facility] [address] [id number], [place] [address] Jul, Dental examination Z01.20 [facility], [place] [id number] [place] [address] Jul, Generalized anxiety disorder F41.1 [facility], [place] [address] [address] Jul, Diverticulitis K57.92 [facility], [place] [address] [address] 28 Jun, 2017 Encounter for immunization Z23 [facility] [id number] [place] [address] Jun, Dental examination Z01.20 [facility], [place] [id number] [place] [address] 14 Jun, 2017 Generalized anxiety disorder F41.1 [facility] [id number] [place] [address] 07 Jun, 2017 Dental examination Z01.20 [facility], [place] [address] [id number] [place] [address] May, [facility] [id number] [place] [id number] May, Dental examination Z01.20 [facility] [id number] [place] [address] [id number] May, Dental examination Z01.20 [facility] [id number] [place] [address] May, Dental examination Z01.20 [facility], [place] [id number] [place] [address] May, [facility], [place] [id number] [place] [address] May, Generalized anxiety disorder F41.1 [facility], [place] [id number] [place] [address] May, Localized edema R60.0 ; Yeast vaginitis B37.3 and Gastroesophageal reflux disease with esophagitis K21.0 [facility] [address] [place] [id number] Apr, Dental examination Z01.20 [facility] [address] [id number], [place] [address] Apr, Dental examination Z01.20 [facility] [address] [id number], [place] [address] 05 Apr, 2017 Dental examination Z01.20 [facility], [place] [id number] [place] [address] Mar, Dyspepsia R10.13 [facility], [place] [address] [place] [address] Mar, Generalized anxiety disorder F41.1 [facility] [address] [id number], [place] [address] Mar, Encounter for dental examination Z01.20 [facility] [id number] [place] [address] [id number] Mar, [facility] [id number] [place] [address] [id number] Mar, Dental examination Z01.20 [facility], [place] [id number] [place] [address] Feb, Hypertension I10 and Tachycardia R00.0 [facility] [address] [id number], [place] [address] Feb, [facility], [place] [address] [place] [address] Feb, Generalized anxiety disorder F41.1 [facility] [id number] [place] [address] [id number] Feb, Dental examination Z01.20 [facility], [place] [id number] [place] [address] Jan, Generalized anxiety disorder F41.1 [facility], [place] [id number] [place] [address] December, Generalized anxiety disorder F41.1 [facility] [address] [place] [address] [id number] December, Encounter for dental examination Z01.20 [facility], [place] [address] [address] Nov, [facility] [place] [id number] [place] [address] Nov, [facility] [place] [id number] [place] [address] Nov, Generalized anxiety disorder F41.1 [facility] [place] [id number] [place] [address] 30 Oct, 2016 [facility] [id number] [place] [address] [id number] Oct, Dental examination Z01.20 [facility] [id number] [place] [address] Oct, Vaginal dryness N89.8 [facility] [id number] [place] [address] Oct, Pseudoseizures F44.5 [facility] [id number] [place] [address] Oct, Generalized anxiety disorder F41.1 [facility] [id number] [place] [address] 28 Sep, 2016 Abnormal uterine bleeding (AUB) N93.9 ; Vaginal dryness N89.8 and Screening breast examination Z12.39 [facility] [id number] [place] [address] Sep, Dental examination Z01.20 [facility] [address] [place] [address] Sep, Generalized anxiety disorder F41.1 [facility] [address] [place] [address] 06 Sep, 2016 Unspecified ovarian cyst, right side N83.201 ; Unspecified ovarian cyst, left side N83.202 ; Yeast infection of the vagina B37.3 ; Mitral valve prolapse I34.1 and Hypertension I10 [facility], [place] [address] [address] Aug, Generalized anxiety disorder F41.1 [facility], [place] [id number] [place] [address] 28 Jul, 2016 [facility], [place] [id number] [place] [address] Jul, Generalized anxiety disorder F41.1 [facility], [place] [id number] [place] [address] Jun, Generalized anxiety disorder F41.1 [facility], [place] [id number] [place] [address] 28 May, 2016 Encounter for immunization Z23 [facility], [place] [id number] [place] [address] 17 May, 2016 Generalized anxiety disorder F41.1 and Depressive disorder, not elsewhere classified F32.9 [facility], [place] [id number] [place] [address] 28 Apr, 2016 Hypertension I10 [facility], [place] [id number] [place] [address] 22 Apr, 2016 Cervicalgia M54.2 [facility] [address] [place] [address] 12 Apr, 2016 Cervicalgia M54.2 [facility], [place] [id number] [place] [address] 09 Mar, 2016 Generalized anxiety disorder F41.1 and Depressive disorder, not elsewhere classified F32.9 [facility] [address] [place] [address] [id number] 14 Feb, 2016 Visit for dental examination Z01.20 [facility], [place] [address] [place] [address] 11 Feb, 2016 Pseudoseizures F44.5 ; Migraine without status migrainosus, not intractable, unspecified migraine type G43.909 and Essential hypertension I10 [facility] [id number] [id number] 06 Feb, 2016 Dental examination Z01.20 [facility] [id number] [place] [address] Feb, Generalized anxiety disorder F41.1 and Depressive disorder, not elsewhere classified F32.9 [facility] [id number] [place] [address] Jan, Tachycardia R00.0 [facility] [id number] [place] [address] December, Eustachian tube dysfunction, bilateral H69.83 [facility] [id number] [place] [address] December, Generalized anxiety disorder F41.1 and Depressive disorder, not elsewhere classified F32.9 [facility] [id number] [place] [address] Nov, [facility] [id number] [place] [address] Nov, [facility] [id number] [place] [address] Nov, Hypertension I10 ; Onychomycosis B35.1 ; [...] and Complex cyst of left ovary N83.29 [facility] [address] [place] [address] 14 Nov, 2015 Sinusitis J32.9 [facility] [id number] [place] [address] Oct, Complex cyst of left ovary N83.29 [facility], [place] [address] [place] [address] Oct, Onychomycosis B35.1 [facility] [address] [place] [address] [id number] 17 Oct, 2015 Dental examination Z01.20 [facility] [address] [address] 09 Oct, 2015 Well woman exam Z01.419 [...] R92.2 and History of colon polyps Z86.010 [facility] [id number] [place] [address] Oct, Generalized anxiety disorder F41.1 and Depressive disorder, not elsewhere classified F32.9 [facility] [id number] [place] [address] Sep, Hypertension I10 and Onychomycosis B35.1 [facility] [id number] [place] [address] Sep, Skin tags, multiple acquired L91.8 [facility] [id number] [place] [address] Aug, [facility] [id number] [place] [address] Aug, [facility] [id number] [place] [address] Aug, [facility] [address] [address] Aug, Generalized anxiety disorder F41.1 and Depressive disorder, not elsewhere classified F32.9 [facility], [place] [id number] [place] [address] Jul, Skin lesion L98.9 [facility], [place] [id number] [place] [address] Jun, Generalized anxiety disorder F41.1 and Depressive disorder, not elsewhere classified F32.9 [facility], [place] [id number] [place] [address] Jun, [facility] [address] [address] Jun, Generalized anxiety disorder F41.1 [facility] [address] [address] May, Encounter for immunization Z23 and Right shoulder pain M25.511 [facility], [place] [id number] [place] [address] Apr, [facility] [place] [id number] [place] [address] 14 Apr, 2015 Generalized anxiety disorder 300.02 and Depressive disorder, not elsewhere classified 311 [facility] [id number] [place] [address] [id number] Mar, Dental examination V72.2 [facility], [place] [id number] [place] [address] Mar, Generalized anxiety disorder 300.02 and Depressive disorder, not elsewhere classified 311 [facility], [place] [id number] [place] [address] Mar, Depression, major, recurrent, 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.35 and 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 [facility], [place] [id number] [place] [address] Feb, Generalized anxiety disorder 300.02 and Depressive disorder, not elsewhere classified 311 [facility] [id number] [id number] Feb, Dental examination V72.2 [facility], [place] [id number] [place] [address] 09 Jan, 2015 Generalized anxiety disorder 300.02 and Depressive disorder, not elsewhere classified 311 [facility], [place] [address] [address] Jan, [facility], [place] [address] [place] [address] December, Generalized anxiety disorder 300.02 and Depressive disorder, not elsewhere classified 311 [facility] [place] [id number] [place] [address] December, Major depressive disorder, recurrent, unspecified 296.30 and Panic disorder with agoraphobia 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 [facility], [place] [id number] [place] [address] Nov, [facility], [place] [address] [address] Nov, [facility], [place] [address] [place] [address] Oct, [facility], [place] [address] [address] Oct, [facility], [place] [address] [address] Oct, [facility], [place] [address] [address] Oct, [facility], [place] [address] [place] [address] Sep, [facility], [place] [address] [address] Sep, [facility], [place] [address] [address] Sep, [facility] [place] [facility] [address] [id number] [place] [address] Sep, 2014 [facility] [place] [facility] [address] [id number] [place] [address] Sep, 2014 [facility] [place] [facility] [address] [id number] [place] [address] Sep, 2014 [facility] [place] [facility] [address] [id number] [place] [address] Sep, 2014 [facility] [place] [facility] [address] [id number] [place] [address] Sep, 2014 [facility] [place] [facility] [address] [id number] [place] [address] Sep, 2014 [facility] [place] [facility] [address] [facility] [id number] [place] [address] Sep, 2014 [facility] [place] [facility] [address] [id number] [place] [address] Aug, [facility] [place] [facility] [address] [id number] [place] [address] Aug, [facility] [place] [facility] [address] [facility] [id number] [place] [address] Jul, [facility] [place] [facility] [address] [facility] [id number] [place] [address] Jul, [facility] [place] [facility] [address] [id number] [place] [address] Jul, [facility] [place] [facility] [address] [id number] [place] [address] Jul, [facility] [place] [facility] [address] [facility] [id number] [place] [address] Jul, [facility] [place] [facility] [address] [facility] [id number] [place] [address] Jul, [facility] [place] [facility] [address] [id number] [place] [address] 05 Jul, 2014 [facility] [place] [facility] [address] [id number] [place] [address] Jul, [facility] [place] [facility] [address] [id number] [place] [address] Jul, [facility] [place] [facility] [address] [id number] [place] [address] Jul, [facility] [place] [facility] [address] [id number] [place] [address] Jul, [facility] [place] [facility] [address] [id number] [place] [address] Jul, [facility] [place] [facility] [address] [id number] [place] [address] Jun, [facility] [place] [facility] [address] [id number] [place] [address] Jun, [facility] [place] [facility] [address] [id number] [place] [address] May, [facility] [place] [facility] [address] [id number] [place] [address] May, [facility] [place] [facility] [address] [id number] [place] [address] May, [facility] [place] [facility] [address] [id number] [place] [address] May, [facility] [place] [facility] [address] [id number] [place] [address] May, [facility] [place] [facility] [address] [id number] [place] [address] May, [facility] [place] [facility] [address] [id number] [place] [address] May, [facility] [place] [facility] [address] [id number] [place] [address] May, [facility] [place] [facility] [address] [id number] [place] [address] May, [facility] [place] [facility] [address] [id number] [place] [address] May, [facility] [place] [facility] [address] [id number] [place] [address] May, [facility] [place] [facility] [address] [id number] [place] [address] May, [facility] [place] [facility] [address] [id number] [place] [address] Apr, [facility] [place] [facility] [address] [id number] [place] [address] Apr, [facility] [place] [facility] [address] [id number] [place] [address] Apr, [facility] [place] [facility] [address] [id number] [place] [address] Apr, [facility] [place] [facility] [address] [id number] [place] [address] Apr, [facility] [place] [facility] [address] [id number] [place] [address] Apr, [facility] [place] [facility] [address] [id number] [place] [address] Feb, [facility] [place] [facility] [address] [id number] [place] [address] Feb, [facility] [place] [facility] [address] [id number] [place] [address] Feb, [facility] [place] [facility] [address] [id number] [place] [address] Feb, [facility] [place] [facility] [address] [id number] [place] [address] Feb, [facility] [place] [facility] [address] [id number] [place] [address] Feb, [facility] [place] [facility] [address] [id number] [place] [address] Jan, [facility] [place] [facility] [address] [id number] [place] [address] Jan, [facility] [place] [facility] [address] [id number] [place] [address] Jan, [facility] [place] [facility] [address] [id number] [place] [address] Jan, [facility] [place] [facility] [address] [id number] [place] [address] Jan, [facility] [place] [facility] [address] [id number] [place] [address] Jan, [facility] [place] [facility] [address] [id number] [place] [address] Jan, [facility] [place] [facility] [address] [id number] [place] [address] Jan, [facility] [place] [facility] [address] [id number] [place] [address] December, [facility] [place] [facility] [address] [id number] [place] [address] December, [facility] [place] [facility] [address] [id number] [place] [address] December, [facility] [place] [facility] [address] [id number] [place] [address] December, [facility] [place] [facility] [address] [id number] [place] [address] Nov, [facility] [place] [facility] [address] [id number] [place] [address] Nov, [facility] [place] [facility] [address] [id number] [place] [address] Nov, [facility] [place] [facility] [address] [id number] [place] [address] Nov, [facility] [place] [facility] [address] [id number] [place] [address] Nov, [facility] [place] [facility] [address] [id number] [place] [address] Nov, [facility] [place] [facility] [address] [id number] [place] [address] Nov, [facility] [place] [facility] [address] [id number] [place] [address] Nov, [facility] [place] [facility] [address] [id number] [place] [address] Oct, [facility] [place] [facility] [address] [id number] [place] [address] Oct, [facility] [place] [facility] [address] [id number] [place] [address] Sep, [facility] [place] [facility] [address] [id number] [place] [address] Sep, [facility] [place] [facility] [address] [facility] [id number] [place] [id number] Sep, [facility] [place] [facility] [address] [id number] [place] [address] Sep, [facility] [place] [facility] [address] [id number] [place] [address] Sep, [facility] [place] [facility] [address] [id number] [place] [address] Sep, [facility] [place] [facility] [address] [id number] [place] [address] Aug, [facility] [place] [facility] [address] [id number] [place] [address] Aug, [facility] [place] [facility] [address] [id number] [place] [address] Aug, [facility] [place] [facility] [address] [id number] [place] [address] Aug, [facility] [place] [facility] [address] [id number] [place] [address] Jul, [facility] [place] [facility] [address] [id number] [place] [address] Jul, [facility] [place] [facility] [address] [id number] [place] [address] Jul, [facility] [place] [facility] [address] [id number] [place] [address] Jul, [facility] [place] [facility] [address] [id number] [place] [address] Jun, [facility] [place] [facility] [address] [id number] [place] [address] Jun, [facility] [place] [facility] [address] [id number] [place] [address] May, [facility] [place] [facility] [address] [id number] [place] [address] May, [facility] [place] [facility] [address] [id number] [place] [address] May, [facility] [place] [facility] [address] [id number] [place] [address] May, [facility] [place] [facility] [address] [id number] [place] [address] May, [facility] [place] [facility] [address] [id number] [place] [address] 17 Apr, 2013 [facility] [place] [facility] [address] [id number] [place] [address] 10 Apr, 2013 [facility] [place] [facility] [address] [id number] [place] [address] Mar, [facility] [place] [facility] [address] [id number] [place] [address] Mar, [facility] [address] [id number] [place] [address] Mar, [facility] [address] [id number] [place] [address] Mar, [facility] [address] [id number] [place] [address] Feb, [facility] [address] [id number] [place] [address] Feb, [facility] [address] [id number] [place] [address] Feb, [facility] [address] [id number] [place] [address] Feb, [facility] [address] [id number] [place] [address] Feb, [facility] [address] [id number] [place] [address] Jan, [facility] [address] [id number] [place] [address] Jan, [facility] [address] [id number] [place] [address] Jan, [facility] [address] [id number] [place] [address] Jan, [facility] [address] [id number] [place] [address] Jan, [facility] [address] [id number] [place] [address] December, [facility] [address] [id number] [place] [address] December, [facility] [address] [id number] [place] [address] Nov, [facility] [address] [id number] [place] [address] 02 Nov, 2012 [facility] [place] [facility] [address] [id number] [place] [address] 19 Oct, 2012 [facility] [place] [facility] [address] [id number] [place] [address] 13 Oct, 2012 [facility] [place] [facility] [address] [id number] [place] [address] 05 Oct, 2012 [facility] [address] [id number] [place] [address] 14 Sep, 2012 [facility] [place] [facility] [address] [id number] [place] [address] 24 Aug, 2012 [facility] [address] [id number] [place] [address] 16 Aug, 2012 [facility] [address] [id number] [place] [address] 15 Aug, 2012 [facility] [address] [id number] [place] [address] Aug, [facility] [address] [facility] [id number] [place] [address] Jul, [facility] [address] [id number] [place] [address] Jul, [facility] [place] [facility] [address] [id number] [place] [address] Jul, [facility] [place] [facility] [address] [id number] [place] [address] Jul, [facility] [place] [facility] [address] [id number] [place] [address] Jul, [facility] [place] [facility] [address] [facility] [id number] [place] [address] Jul, [facility] [place] [facility] [address] [id number] [place] [address] Jul, [facility] [place] [facility] [address] [id number] [place] [address] Jul, [facility] [place] [facility] [address] [facility] [id number] [place] [address] Jun, [facility] [place] [facility] [address] [facility] [id number] [place] [address] Jun, [facility] [place] [facility] [address] [facility] [id number] [place] [address] Jun, [facility] [place] [facility] [id number] [place] [address], [place] [address] Jun, [facility] [place] [facility] [address] [facility] [id number] [place] [address] Jun, [facility] [place] [facility] [id number] [place] [address] Jun, [facility] [place] [facility] [address] [facility] [id number] [place] [address] May, [facility] [place] [facility] [address] [id number] [place] [address] May, [facility] [place] [facility] [address] [id number] [place] [address] May, [facility] [place] [facility] [id number] [place] [address] May, [facility] [place] [facility] [address] [facility] [id number] [place] [address] Apr, [facility] [place] [facility] [address] [facility] [id number] [place] [address] Apr, [facility] [place] [facility] [address] [facility] [id number] [place] [address] Mar, [facility] [place] [facility] [address] [id number] [place] [address] Jan, [facility] [place] [facility] [address] [id number] [place] [address] 20 Jan, 2012 [facility] [place] [facility] [address] [id number] [place] [address] 16 Jan, 2012 [facility] [place] [facility] [address] [id number] [place] [address] 15 Jan, 2012 [facility] [place] [facility] [address] [id number] [place] [address] 14 Jan, 2012 [facility] [place] [facility] [address] [id number] [place] [address] 14 Jan, 2012 [facility] [place] [facility] [address] [id number] [place] [address] 07 Jan, 2012 [facility] [place] [facility] [address] [id number] [place] [address] December, [facility] [place] [facility] [address] [id number] [place] [address] December, [facility] [place] [facility] [address] [id number] [place] [address] December, [facility] [place] [facility] [address] [id number] [place] [address] December, [facility] [place] [facility] [address] [id number] [place] [address] Nov, [facility] [place] [facility] [address] [id number] [place] [address] 05 Nov, 2011 [facility] [place] [facility] [address] [id number] [place] [address] 29 Oct, 2011 [facility] [place] [facility] [address] [id number] [place] [address] 28 Oct, 2011 [facility] [place] [facility] [address] [id number] [place] [address] 15 Oct, 2011 [facility] [place] [facility] [address] [id number] [place] [address] Sep, [facility] [place] [facility] [address] [id number] [place] [address] Sep, [facility] [place] [facility] [address] [id number] [place] [address] Sep, [facility] [place] [facility] [address] [facility] [id number] [place] [address] Aug, [facility] [place] [facility] [address] [id number] [place] [address] Aug, [facility] [place] [facility] [address] [id number] [place] [address] Aug, [facility] [place] [facility] [address] [id number] [place] [address] Aug, [facility] [place] [facility] [address] [id number] [place] [address] Aug, [facility] [place] [facility] [address] [id number] [place] [address] Aug, [facility] [place] [facility] [address] [id number] [place] [address] Aug, [facility] [place] [facility] [address] [id number] [place] [address] Jul, [facility] [place] [facility] [address] [id number] [place] [address] Jul, [facility] [place] [facility] [address] [id number] [place] [address] Jun, [facility] [place] [facility] [address] [id number] [place] [address] Jun, [facility] [place] [facility] [address] [id number] [place] [address] 17 Jun, 2011 [facility] [place] [facility] [address] [facility] [id number] [place] [address] 15 Jun, 2011 [facility] [place] [facility] [address] [id number] [place] [address] 14 Jun, 2011 [facility] [address] [id number] [place] [address] 14 Jun, 2011 [facility] [place] [facility] [address] [id number] [place] [address] 07 Jun, 2011 [facility] [place] [facility] [address] [id number] [place] [address] 07 Jun, 2011 [facility] [place] [facility] [address] [id number] [place] [address] Jun, [facility] [place] [facility] [address] [id number] [place] [address], [place] [address] Jun, [facility] [place] [facility] [address] [id number] [place] [address] May, [facility] [place] [facility] [address] [id number] [place] [address] May, [facility] [place] [facility] [address] [id number] [place] [address] May, [facility] [place] [facility] [address] [id number] [place] [address] 24 May, 2011 [facility] [place] [facility] [address] [id number] [place] [address] May, [facility] [place] [facility] [address] [id number] [place] [address] May, [facility] [place] [facility] [address] [id number] [place] [address] Feb, [facility] [place] [facility] [address] [id number] [place] [address] December, [facility] [place] [facility] [address] [id number] [place] [address] Jul, [facility] [place] [facility] [address] [id number] [place] [address] Jul, [facility] [place] [address] [id number] [address] Jul, [facility] [place] [id number] [address] Jul, [facility] [place] [id number] [address] Jun, [facility] [place] [id number] [address] Jul, [facility] [place] [id number] [address] Jul, [facility] [place] [id number] [place] [address] Jul, [facility] [place] [id number] [address] Jul, [facility] [place] [id number] [place] [address] Jul, [facility] [place] [id number] [address] Jul, [facility] [place] [id number] [address] Jan, [facility] [place] [id number] [address] Sep, [facility] [place] [address] [id number] [address] Sep, IMMUNIZATIONS Vaccine Route Administration Date Status FLUARIX QUAD (3 AND UP) 2016 IM Intramuscular Jul 22, 2017 Administered SOCIAL HISTORY Never Assessed REASON FOR VISIT Immunization(s)-Alvin NUNES PLAN OF CARE VITAL SIGNS MEDICATIONS Unknown Medications RESULTS No Results PROCEDURES Procedure Date Ordered Result Body Site FLUARIX QUAD (3 AND UP) 2017 Jul 22, 2017 SINGLE IMMUNIZATION ADMIN Jul 22, 2017 INSTRUCTIONS MEDICATIONS ADMINISTERED No Known Medications [...]
[2019-01-22 21:08] LABS: ALANINE AMINOTRANSFERASE 9 U/L (0-55); ALBUMIN 4.4 GM/DL (3.2-4.5); ALKALINE PHOSPHATASE 107 U/L (40-136); BILIRUBIN,TOTAL 0.4 MG/DL (0.1-1.0); BUN/CREATININE RATIO 19; CALCIUM 9.9 MG/DL (8.5-10.1); CARBON DIOXIDE 25 MMOL/L (21-32); CHLORIDE 101 MMOL/L (98-107); CREATININE SERUM 0.85 MG/DL (0.60-1.30); GFR ESTIMATED > 60; GLUCOSE 130 MG/DL (70-105); LIPASE 12 U/L (8-78); POTASSIUM 3.4 MMOL/L (3.6-5.0); SODIUM 136 MMOL/L (135-145); TOTAL PROTEIN 7.8 GM/DL (6.4-8.2)
--- OUTSIDE RECORDS SUMMARY | 2019-01-22 21:08 | XMS REPORT ---
Author Author KVNG MERCHANT Organization [facility] Address [address] [place] [address] Care Team Providers Care Bsw Name Role Phone KVNG MERCHANT Unavailable PROBLEMS Type Condition ICD9-CM Code NKX47-TA Code Onset Dates Condition Status SNOMED Code Problem Family history of diabetes mellitus Z83.3 Active 341627898 Problem Hot flashes N95.1 Active 566731558 Problem Excessive and frequent menstruation with irregular cycle N92.1 Active 749894642 Problem Diverticulitis K57.92 Active 523334661 Problem Gastroesophageal reflux disease with esophagitis K21.0 Active 117017063 Problem Mitral valve prolapse I34.1 Active 489097142 Problem Perimenopausal N95.1 Active 076589412830153 Problem Tachycardia R00.0 Active 3290666 Problem Abnormal uterine bleeding (AUB) N93.9 Active 04575473173732 Problem History of diverticulitis Z87.19 Active 370210597707963 Problem History of colon polyps Z86.010 Active 313810630 Problem Generalized anxiety disorder F41.1 Active 145967121 Problem Dense breast tissue R92.2 Active 989981149 Problem Hypertension I10 Active 81021470 Problem History of ovarian cyst Z87.42 Active 93397280 ALLERGIES No Information ENCOUNTERS Encounter Location Date Diagnosis [facility] [id number] [address] Jan, Hypertension I10 and Acute non-recurrent maxillary sinusitis J01.00 [facility] [address] [address] December, [facility] [address] [address] December, Hypertension I10 [address] [id number] [address] December, Generalized anxiety disorder F41.1 [facility] [address] [id number] [address] 16 Oct, 2017 Encounter for dental examination Z01.20 [facility] [address] [id number], [place] [address] 06 Oct, 2017 Encounter for dental examination Z01.20 [facility] [address] [id number], [place] [address] 02 Oct, 2017 Dental examination Z01.20 [facility] [id number] [place] [address] Oct, Generalized anxiety disorder F41.1 [facility] [address] [id number], [place] [address] Aug, Dental examination Z01.20 [facility] [id number] [place] [address] Aug, Generalized anxiety disorder F41.1 [facility] [id number] [place] [address] Aug, [facility] [address] [id number], [place] [address] 09 Aug, 2017 Encounter for dental examination Z01.20 [facility] [id number] [address] Aug, Subacute maxillary sinusitis J01.00 [facility] [address] [id number], [place] [address] Jul, Dental examination Z01.20 [facility] [id number] [place] [address] Jul, Generalized anxiety disorder F41.1 [facility] [id number] [place] [address] Jul, Diverticulitis K57.92 [facility] [id number] [place] [address] Jun, Encounter for immunization Z23 [facility] [address] [id number], [place] [address] Jun, Dental examination Z01.20 [facility] [address] [address] 14 Jun, 2017 Generalized anxiety disorder F41.1 [facility] [address] [id number], [place] [address] 07 Jun, 2017 Dental examination Z01.20 [facility] [id number] [place] [address] May, [facility] [id number] [place] [id number] May, Dental examination Z01.20 [facility] [id number] [place] [id number] May, Dental examination Z01.20 [facility] [id number] [place] [address] May, Dental examination Z01.20 [facility] [id number] [place] [address] May, [facility] [id number] [place] [address] May, Generalized anxiety disorder F41.1 [facility] [id number] [place] [address] May, Localized edema R60.0 ; Yeast vaginitis B37.3 and Gastroesophageal reflux disease with esophagitis K21.0 [facility] [address] [id number] [place] [id number] Apr, Dental examination Z01.20 [facility] [address] [id number], [place] [address] Apr, Dental examination Z01.20 [facility] [address] [id number], [place] [address] 05 Apr, 2017 Dental examination Z01.20 [facility] [address] [address] Mar, Dyspepsia R10.13 [facility] [id number] [address] Mar, Generalized anxiety disorder F41.1 [facility] [address] [id number], [place] [address] Mar, Encounter for dental examination Z01.20 [facility] [address] [id number] [place] [address] [id number] Mar, [facility] [id number] [place] [address] [id number] Mar, Dental examination Z01.20 [facility] [id number] [place] [address] Feb, Hypertension I10 and Tachycardia R00.0 [facility] [address] [id number], [place] [address] Feb, [facility] [id number] [place] [address] Feb, Generalized anxiety disorder F41.1 [facility] [id number] [place] [id number] Feb, Dental examination Z01.20 [facility] [id number] [address] Jan, Generalized anxiety disorder F41.1 [facility] [id number] [address] December, Generalized anxiety disorder F41.1 [facility] [address] [id number] December, Encounter for dental examination Z01.20 [facility] [id number] [place] [address] Nov, [facility] [id number] [place] [address] Nov, [facility] [id number] [place] [address] Nov, Generalized anxiety disorder F41.1 [facility] [id number] [place] [address] Oct, [facility] [address] [id number] Oct, Dental examination Z01.20 [place] [address] [address] Oct, Vaginal dryness N89.8 [place] [address] [address] Oct, Pseudoseizures F44.5 [place] [address] [address] Oct, Generalized anxiety disorder F41.1 [place] [id number] [place] [address] 28 Sep, 2016 Abnormal uterine bleeding (AUB) N93.9 ; Vaginal dryness N89.8 and Screening breast examination Z12.39 [place] [id number] [place] [address] Sep, Dental examination Z01.20 [place] [id number] [place] [address] Sep, Generalized anxiety disorder F41.1 [place] [id number] [place] [address] 06 Sep, 2016 Unspecified ovarian cyst, right side N83.201 ; Unspecified ovarian cyst, left side N83.202 ; Yeast infection of the vagina B37.3 ; Mitral valve prolapse I34.1 and Hypertension I10 [address] [id number] [place] [address] Aug, Generalized anxiety disorder F41.1 [facility] [id number] [place] [address] Jul, [facility] [id number] [place] [address] Jul, Generalized anxiety disorder F41.1 [facility] [address] [address] Jun, Generalized anxiety disorder F41.1 [facility] [id number] [place] [address] May, Encounter for immunization Z23 [facility] [id number] [place] [address] 17 May, 2016 Generalized anxiety disorder F41.1 and Depressive disorder, not elsewhere classified F32.9 [facility] [id number] [place] [address] 28 Apr, 2016 Hypertension I10 [facility] [id number] [place] [address] 22 Apr, 2016 Cervicalgia M54.2 [facility] [id number] [place] [address] 12 Apr, 2016 Cervicalgia M54.2 [facility] [id number] [place] [address] 09 Mar, 2016 Generalized anxiety disorder F41.1 and Depressive disorder, not elsewhere classified F32.9 [facility] [id number] [place] [address] [id number] 14 Feb, 2016 Visit for dental examination Z01.20 [facility] [id number] [place] [address] 11 Feb, 2016 Pseudoseizures F44.5 ; Migraine without status migrainosus, not intractable, unspecified migraine type G43.909 and Essential hypertension I10 [facility] [id number] [place] [address] [id number] Feb, Dental examination Z01.20 [place] [id number] [place] [address] Feb, Generalized anxiety disorder F41.1 and Depressive disorder, not elsewhere classified F32.9 [place] [id number] [place] [address] Jan, Tachycardia R00.0 [place] [address] [address] December, Eustachian tube dysfunction, bilateral H69.83 [place] [address] [address] December, Generalized anxiety disorder F41.1 and Depressive disorder, not elsewhere classified F32.9 [place] [id number] [place] [address] Nov, [place] [id number] [place] [address] Nov, [place] [id number] [place] [address] Nov, Hypertension I10 ; Onychomycosis B35.1 ; [...] cyst of left ovary N83.29 [place] [id number] [place] [address] 14 Nov, 2015 Sinusitis J32.9 [place] [id number] [place] [address] Oct, Complex cyst of left ovary N83.29 [place] [id number] [place] [address] Oct, Onychomycosis B35.1 [facility] [id number] [place] [address] [id number] 17 Oct, 2015 Dental examination Z01.20 [place] [id number] [place] [address] 09 Oct, 2015 Well woman exam Z01.419 [...] History of colon polyps Z86.010 [place] [id number] [place] [address] Oct, Generalized anxiety disorder F41.1 and Depressive disorder, not elsewhere classified F32.9 [place] [id number] [place] [address] Sep, Hypertension I10 and Onychomycosis B35.1 [id number] [place] [address] Sep, Skin tags, multiple acquired L91.8 [place] [id number] [place] [address] Aug, [place] [id number] [place] [address] Aug, [place] [id number] [place] [address] Aug, [place] [id number] [place] [address] Aug, Generalized anxiety disorder F41.1 and Depressive disorder, not elsewhere classified F32.9 [facility] [id number] [place] [address] Jul, Skin lesion L98.9 [facility] [id number] [place] [address] Jun, Generalized anxiety disorder F41.1 and Depressive disorder, not elsewhere classified F32.9 [facility] [address] [address] Jun, [facility] [id number] [place] [address] Jun, Generalized anxiety disorder F41.1 [place] [address] [address] May, Encounter for immunization Z23 and Right shoulder pain M25.511 [facility] [address] [address] Apr, [facility] [address] [address] 14 Apr, 2015 Generalized anxiety disorder 300.02 and Depressive disorder, not elsewhere classified 311 [facility] [address] [id number] Mar, Dental examination V72.2 [facility] [id number] [place] [address] Mar, Generalized anxiety disorder 300.02 and Depressive disorder, not elsewhere classified 311 [facility] [id number] [place] [address] Mar, Depression, major, recurrent, 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.35 and 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 [facility] [id number] [place] [address] Feb, Generalized anxiety disorder 300.02 and Depressive disorder, not elsewhere classified 311 [facility] [id number] [place] [address] [id number] Feb, Dental examination V72.2 [facility] [address] [address] Jan, Generalized anxiety disorder 300.02 and Depressive disorder, not elsewhere classified 311 [facility] [address] [address] Jan, [facility] [id number] [place] [address] December, Generalized anxiety disorder 300.02 and Depressive disorder, not elsewhere classified 311 [facility] [id number] [place] [address] December, Major depressive disorder, recurrent, unspecified 296.30 and Panic disorder with agoraphobia 300.21 [facility] [address] [address] Nov, [facility] [id number] [place] [address] Nov, [facility] [address] [address] Oct, [facility] [id number] [place] [address] Oct, [facility] [address] [address] Oct, [facility] [id number] [address] Oct, [facility] [address] [address] Sep, [facility] [address], [place] [address] Sep, [facility] [address] [address] Sep, [facility] [id number] [place] [address] Sep, 2014 [facility] [place] [facility] [address] [id number] [place] [address] Sep, 2014 [facility] [place] [facility] [address] [id number] [place] [address] Sep, 2014 [facility] [place] [facility] [address] [id number] [place] [address] Sep, 2014 [facility] [place] [facility] [address] [id number] [place] [address] Sep, 2014 [facility] [place] [facility] [address] [id number] [place] [address] Sep, 2014 [facility] [place] [facility] [address] [facility] [id number] [place] [address] Sep, 2014 [facility] [place] [facility] [address] [facility] [id number] [place] [address] Aug, [facility] [place] [facility] [address] [id number] [place] [address] Aug, [facility] [place] [facility] [address] [facility] [id number] [place] [address] Jul, [facility] [place] [facility] [address] [facility] [id number] [place] [address] Jul, [facility] [place] [facility] [address] [facility] [id number] [place] [address] 18 Jul, 2014 [facility] [place] [facility] [address] [id number] [place] [address] 18 Jul, 2014 [facility] [place] [facility] [address] [id number] [place] [address] Jul, [facility] [place] [facility] [address] [facility] [id number] [place] [address] Jul, [facility] [place] [facility] [address] [facility] [id number] [place] [address] Jul, [facility] [place] [facility] [address] [id number] [place] [address] Jul, [facility] [place] [facility] [address] [id number] [place] [address] Jul, [facility] [place] [facility] [address] [id number] [place] [address] Jul, [facility] [place] [facility] [address] [id number] [place] [address] Jul, [facility] [place] [facility] [address] [id number] [place] [address] Jul, [facility] [place] [facility] [address] [id number] [place] [address] Jun, [facility] [place] [facility] [address] [id number] [place] [address] Jun, [facility] [place] [facility] [address] [id number] [place] [address] May, [facility] [place] [facility] [address] [id number] [place] [address] May, [facility] [place] [facility] [address] [id number] [address] May, [facility] [place] [facility] [address] [id number], [place] [address] May, [facility] [place] [facility] [address] [id number] [address] May, [facility] [place] [facility] [address] [id number] [place] [address] May, [facility] [place] [facility] [address] [id number], [place] [address] May, [facility] [place] [facility] [address] [id number] [place] [address] May, [facility] [place] [facility] [address] [id number] [place] [address] May, [facility] [place] [facility] [address] [id number] [place] [address] May, [facility] [place] [facility] [address] [id number] [place] [address] May, [facility] [place] [facility] [address] [id number] [place] [address] May, [facility] [place] [facility] [address] [id number] [place] [address] Apr, [facility] [place] [facility] [address] [id number] [place] [address] 30 Apr, 2014 [facility] [place] [facility] [address] [id number] [place] [address] Apr, [facility] [place] [facility] [address] [id number] [place] [address] Apr, [facility] [place] [facility] [address] [id number] [place] [address] Apr, [facility] [place] [facility] [address] [id number] [place] [address] Apr, [facility] [place] [facility] [address] [id number] [place] [address] Feb, [facility] [place] [facility] [address] [id number] [place] [address] Feb, [facility] [place] [facility] [address] [id number] [place] [address] Feb, [facility] [place] [facility] [address] [id number] [place] [address] Feb, [facility] [place] [facility] [address] [id number] [place] [address] Feb, [facility] [place] [facility] [address] [id number] [place] [address] Feb, [facility] [place] [facility] [address] [id number] [place] [address] Jan, [facility] [place] [facility] [address] [id number] [place] [address] Jan, [facility] [place] [facility] [address] [id number] [place] [address] Jan, [facility] [place] [facility] [address] [id number] [place] [address] Jan, [facility] [place] [facility] [address] [id number] [place] [address] Jan, [facility] [place] [facility] [address] [id number] [place] [address] Jan, [facility] [place] [facility] [address] [id number] [place] [address] Jan, [facility] [place] [facility] [address] [id number] [place] [address] Jan, [facility] [place] [facility] [address] [id number] [place] [address] December, [facility] [place] [facility] [address] [id number] [place] [address] December, [facility] [place] [facility] [address] [id number] [place] [address] December, [facility] [place] [facility] [address] [id number] [place] [address] December, [facility] [place] [facility] [address] [id number] [place] [address] Nov, [facility] [place] [facility] [address] [id number] [place] [address] Nov, [facility] [place] [facility] [address] [id number] [place] [address] Nov, [facility] [place] [facility] [address] [id number] [place] [address] Nov, [facility] [place] [facility] [address] [id number] [place] [address] Nov, [facility] [place] [facility] [address] [id number] [place] [address] Nov, [facility] [place] [facility] [address] [id number] [place] [address] Nov, [facility] [place] [facility] [address] [id number] [place] [address] Nov, [facility] [place] [facility] [address] [id number] [place] [address] Oct, [facility] [place] [facility] [address] [id number] [place] [address] Oct, [facility] [place] [facility] [address] [id number] [place] [address] Sep, [facility] [place] [facility] [address] [id number] [place] [address] Sep, [facility] [place] [facility] [address] [id number] [place] [id number] Sep, [facility] [place] [facility] [address] [id number] [place] [address] Sep, [facility] [place] [facility] [address] [id number] [place] [address] Sep, [facility] [place] [facility] [address] [id number] [place] [address] Sep, [facility] [place] [facility] [address] [id number] [place] [address] Aug, [facility] [place] [facility] [address] [id number] [place] [address] Aug, [facility] [place] [facility] [address] [id number] [place] [address] Aug, [facility] [place] [facility] [address] [id number] [place] [address] Aug, [facility] [place] [facility] [address] [id number] [place] [address] Jul, [facility] [place] [facility] [address] [id number] [place] [address] Jul, [facility] [place] [facility] [address] [id number] [place] [address] Jul, [facility] [place] [facility] [address] [id number] [place] [address] Jul, [facility] [place] [facility] [address] [id number] [place] [address] Jun, [facility] [place] [facility] [address] [id number] [place] [address] Jun, [facility] [place] [facility] [address] [id number] [place] [address] May, [facility] [place] [facility] [address] [id number] [place] [address] May, [facility] [place] [facility] [address] [id number] [place] [address] May, [facility] [place] [facility] [address] [id number] [place] [address] May, [facility] [place] [facility] [address] [id number] [place] [address] May, [facility] [place] [facility] [address] [id number] [place] [address] 17 Apr, 2013 [facility] [place] [facility] [address] [id number] [place] [address] Apr, [facility] [place] [facility] [address] [id number] [place] [address] Mar, [facility] [place] [facility] [address] [id number] [place] [address] Mar, [facility] [address] [id number] [place] [address] Mar, [facility] [place] [facility] [address] [id number] [place] [address] Mar, [facility] [place] [facility] [address] [id number] [place] [address] Feb, [facility] [place] [facility] [address] [id number] [place] [address] Feb, [facility] [address] [id number] [place] [address] Feb, [facility] [place] [facility] [address] [id number] [place] [address] Feb, [facility] [place] [facility] [address] [id number] [place] [address] Feb, [facility] [place] [facility] [address] [id number] [place] [address] Jan, [facility] [place] [facility] [address] [id number] [place] [address] Jan, [facility] [place] [facility] [address] [id number] [place] [address] Jan, [facility] [place] [facility] [address] [id number] [place] [address] Jan, [facility] [place] [facility] [address] [id number] [place] [address] Jan, [facility] [place] [facility] [address] [id number] [place] [address] December, [facility] [place] [facility] [address] [id number] [place] [address] December, [facility] [place] [facility] [address] [id number] [place] [address] Nov, [facility] [place] [facility] [address] [id number] [place] [address] 02 Nov, 2012 [facility] [address] [id number] [place] [address] 19 Oct, 2012 [facility] [address] [id number] [place] [address] 13 Oct, 2012 [facility] [address] [id number] [place] [address] 05 Oct, 2012 [facility] [place] [facility] [address] [id number] [place] [address] 14 Sep, 2012 [facility] [address] [id number] [place] [address] 24 Aug, 2012 [facility] [address] [id number] [place] [address] 16 Aug, 2012 [facility] [address] [id number] [place] [address] 15 Aug, 2012 [facility] [address] [id number] [place] [address] Aug, [facility] [address] [id number] [place] [address] Jul, [facility] [address] [id number] [place] [address] Jul, [facility] [address] [id number] [place] [address] Jul, [facility] [place] [facility] [address] [id number] [place] [address] Jul, [facility] [place] [facility] [address] [id number] [place] [address] Jul, [facility] [place] [facility] [address] [id number] [place] [address] Jul, [facility] [address] [id number] [place] [address] Jul, [facility] [place] [facility] [address] [id number] [place] [address] Jul, [facility] [place] [facility] [address] [id number] [place] [address] Jun, [facility] [place] [facility] [address] [id number] [place] [address] Jun, [facility] [place] [facility] [address] [id number] [place] [address], [place] [address] Jun, [facility] [place] [facility] [address] [id number] [place] [address] Jun, [facility] [place] [facility] [address] [id number] [place] [address] Jun, [facility] [place] [facility] [address] [id number] [place] [address] Jun, [facility] [place] [facility] [address] [id number] [place] [address] May, [facility] [place] [facility] [address] [id number] [place] [address] May, [facility] [place] [facility] [address] [id number] [place] [address] May, [facility] [place] [facility] [address] [id number] [place] [address] May, [facility] [place] [facility] [address] [id number] [place] [address] Apr, [facility] [place] [facility] [address] [id number] [place] [address] Apr, [facility] [place] [facility] [address] [id number] [place] [address] Mar, [facility] [place] [facility] [address] [id number] [place] [address] Jan, [facility] [place] [facility] [address] [id number] [place] [address] 20 Jan, 2012 [facility] [place] [facility] [address] [id number] [place] [address] 16 Jan, 2012 [facility] [place] [facility] [address] [id number] [place] [address] 15 Jan, 2012 [facility] [place] [facility] [address] [id number] [place] [address] 14 Jan, 2012 [facility] [place] [facility] [address] [id number] [place] [address] 14 Jan, 2012 [facility] [place] [facility] [address] [id number] [place] [address] 07 Jan, 2012 [facility] [place] [facility] [address] [id number] [place] [address] December, [facility] [place] [facility] [address] [id number] [place] [address] December, [facility] [place] [facility] [address] [id number] [place] [address] December, [facility] [place] [facility] [address] [id number] [place] [address] December, [facility] [place] [facility] [address] [id number] [place] [address] Nov, [facility] [place] [facility] [address] [id number] [place] [address] 05 Nov, 2011 [facility] [place] [facility] [address] [id number] [place] [address] 29 Oct, 2011 [facility] [place] [facility] [address] [id number] [place] [address] 28 Oct, 2011 [facility] [place] [facility] [address] [id number] [place] [address] 15 Oct, 2011 [facility] [place] [facility] [address] [id number] [place] [address] Sep, [facility] [place] [facility] [address] [id number] [place] [address] 09 Sep, 2011 [facility] [address] [id number] [place] [address] Sep, [facility] [address] [id number] [place] [address] Aug, [facility] [address] [id number] [place] [address] Aug, [facility] [address] [id number] [place] [address] Aug, [facility] [address] [id number] [place] [address] Aug, [facility] [address] [id number] [place] [address] Aug, [facility] [address] [id number] [place] [address] Aug, [facility] [address] [id number] [place] [address] Aug, [facility] [address] [id number] [place] [address] Jul, [facility] [address] [id number] [place] [address] Jul, [facility] [address] [id number] [place] [address] Jun, [facility] [address] [id number] [place] [address] 28 Jun, 2011 [facility] [place] [facility] [address] [id number] [place] [address] 17 Jun, 2011 [facility] [place] [facility] [address] [id number] [place] [address] 15 Jun, 2011 [facility] [address] [id number] [place] [address] 14 Jun, 2011 [facility] [place] [facility] [address] [id number] [place] [address] 14 Jun, 2011 [facility] [place] [facility] [address] [id number] [place] [address] 07 Jun, 2011 [facility] [place] [facility] [address] [id number] [place] [address] Jun, [facility] [place] [facility] [address] [id number] [place] [address] Jun, [facility] [place] [facility] [address] [id number] [place] [address] Jun, [facility] [place] [facility] [address] [id number] [place] [address] May, [facility] [place] [facility] [address] [id number] [place] [address] May, [facility] [place] [facility] [address] [id number] [place] [address] May, [facility] [place] [facility] [address] [id number] [place] [address] 24 May, 2011 [facility] [place] [facility] [address] [id number] [place] [address] May, [facility] [place] [facility] [address] [id number] [address] May, [facility] [place] [facility] [address] [id number], [place] [address] Feb, [facility] [place] [facility] [address] [id number] [place] [address] December, [facility] [place] [facility] [address] [id number] [place] [address] Jul, [facility] [place] [facility] [address] [id number] [place] [address] Jul, [facility] [place] [facility] [id number] [address] Jul, [facility] [id number], [place] [address] Jul, [facility] [id number] [address] Jun, [facility] [id number], [place] [address] Jul, [facility] [id number], [place] [address] Jul, [facility] [id number] [place] [address] Jul, [facility] [id number], [place] [address] Jul, [facility] [id number] [place] [address] Jul, [facility] [id number], [place] [address] Jul, [facility] [id number], [place] [address] Jan, [facility] [id number] [address] 16 Sep, 2008 [facility] [id number] [address] Sep, IMMUNIZATIONS No Known Immunizations SOCIAL HISTORY Never Assessed REASON FOR VISIT followup Anxiety PLAN OF CARE Activity Details Follow Up 4 Weeks Reason: Follow-up VITAL SIGNS MEDICATIONS No Known Medications RESULTS No Results PROCEDURES Procedure Date Ordered Result Body Site Psychotherapy, patient &/family, 45 minutes, established patient Aug 12, 2017 INSTRUCTIONS MEDICATIONS ADMINISTERED No Known Medications [...]
--- OUTSIDE RECORDS SUMMARY | 2019-01-22 21:08 | XMS REPORT ---
Author Author LETTY WILKINS Organization [facility] Address [address] [place] [address] Care Team Providers Care Unit Secy Name Role Phone LETTY WILKINS Unavailable PROBLEMS Type Condition ICD9-CM Code YOI80-HT Code Onset Dates Condition Status SNOMED Code Problem Family history of diabetes mellitus Z83.3 Active 134544581 Problem Hot flashes N95.1 Active 193129843 Problem Excessive and frequent menstruation with irregular cycle N92.1 Active 540525740 Problem Diverticulitis K57.92 Active 106642601 Problem Gastroesophageal reflux disease with esophagitis K21.0 Active 030494366 Problem Mitral valve prolapse I34.1 Active 438395336 Problem Perimenopausal N95.1 Active [id number] Problem Tachycardia R00.0 Active 3550717 Problem Abnormal uterine bleeding (AUB) N93.9 Active 36708079153211 Problem History of diverticulitis Z87.19 Active 227286169148444 Problem History of colon polyps Z86.010 Active 003740106 Problem Generalized anxiety disorder F41.1 Active 281155677 Problem Dense breast tissue R92.2 Active 449869669 Problem Hypertension I10 Active 79598817 Problem History of ovarian cyst Z87.42 Active 40665525 ALLERGIES No Information ENCOUNTERS Encounter Location Date Diagnosis [facility] [address] [facility] [id number], [place] [address] December, [facility] [address] [facility] [id number], [place] [address] Nov, [facility] [address] [id number], [place] [address] Oct, Encounter for dental examination Z01.20 [facility] [address] [id number], [place] [address] Oct, Encounter for dental examination Z01.20 [facility] [address] [id number], [place] [address] Oct, Dental examination Z01.20 [facility] [address] [id number], [place] [address] Oct, Generalized anxiety disorder F41.1 [facility] [address] [id number], [place] [address] Aug, Dental examination Z01.20 [facility] [id number] [place] [address] Aug, Generalized anxiety disorder F41.1 [facility] [id number] [place] [address] Aug, [facility] [id number] [place] [address] Aug, Encounter for dental examination Z01.20 [facility] [id number] [place] [address] Aug, Subacute maxillary sinusitis J01.00 [facility] [id number], [place] [address] Jul, Dental examination Z01.20 [facility] [address] [id number], [place] [address] Jul, Generalized anxiety disorder F41.1 [facility] [id number] [place] [address] 11 Jul, 2017 Diverticulitis K57.92 [facility] [id number] [place] [address] 28 Jun, 2017 Encounter for immunization Z23 [facility] [address] [id number], [place] [address] 22 Jun, 2017 Dental examination Z01.20 [facility] [id number] [place] [address] Jun, Generalized anxiety disorder F41.1 [facility] [address] [id number], [place] [address] Jun, Dental examination Z01.20 [facility] [address] [id number], [place] [address] May, [facility] [address] [id number][place] [id number] May, Dental examination Z01.20 [facility] [id number] [place] [id number] May, Dental examination Z01.20 [facility] [address] [id number], [place] [address] May, Dental examination Z01.20 [facility] [id number] [place] [address] May, [facility] [id number] [place] [address] May, Generalized anxiety disorder F41.1 [facility] [id number] [place] [address] May, Localized edema R60.0 ; Yeast vaginitis B37.3 and Gastroesophageal reflux disease with esophagitis K21.0 [facility] [address] [place] [id number] Apr, Dental examination Z01.20 [facility] [address] [id number], [place] [address] Apr, Dental examination Z01.20 [facility] [address] [id number], [place] [address] 05 Apr, 2017 Dental examination Z01.20 [facility] [id number] [place] [address] Mar, Dyspepsia R10.13 [facility] [id number] [place] [address] Mar, Generalized anxiety disorder F41.1 [facility] [address] [id number], [place] [address] Mar, Encounter for dental examination Z01.20 [facility] [address] [id number][place] [id number] Mar, [facility] [address] [id number] [place] [id number] Mar, Dental examination Z01.20 [facility] [id number] [place] [address] Feb, Hypertension I10 and Tachycardia R00.0 [facility] [address] [id number], [place] [address] Feb, [facility] [id number] [place] [address] Feb, Generalized anxiety disorder F41.1 [facility] [address] [id number] [place] [id number] Feb, Dental examination Z01.20 [facility] [id number] [place] [address] Jan, Generalized anxiety disorder F41.1 [facility] [address] [id number], [place] [address] December, Generalized anxiety disorder F41.1 [facility] [address] [id number] December, Encounter for dental examination Z01.20 [facility] [id number] [place] [address] Nov, [facility] [id number] [place] [address] Nov, [facility] [address] [id number], [place] [address] Nov, Generalized anxiety disorder F41.1 [facility] [id number] [place] [address] 30 Oct, 2016 [facility] [id number] [place] [address] [id number] Oct, Dental examination Z01.20 [facility] [id number] [place] [address] Oct, Vaginal dryness N89.8 [facility] [id number] [place] [address] Oct, Pseudoseizures F44.5 [place] [id number] [place] [address] Oct, Generalized anxiety disorder F41.1 [place] [id number] [place] [address] 28 Sep, 2016 Abnormal uterine bleeding (AUB) N93.9 ; Vaginal dryness N89.8 and Screening breast examination Z12.39 [facility] [id number] [place] [address] Sep, Dental examination Z01.20 [facility] [id number] [place] [address] 20 Sep, 2016 Generalized anxiety disorder F41.1 [facility] [address] [place] [address] 06 Sep, 2016 Unspecified ovarian cyst, right side N83.201 ; Unspecified ovarian cyst, left side N83.202 ; Yeast infection of the vagina B37.3 ; Mitral valve prolapse I34.1 and Hypertension I10 [facility] [id number] [place] [address] Aug, Generalized anxiety disorder F41.1 [facility] [id number] [place] [address] Jul, [facility] [id number] [place] [address] Jul, Generalized anxiety disorder F41.1 [facility] [id number] [place] [address] Jun, Generalized anxiety disorder F41.1 [facility] [id number] [place] [address] 28 May, 2016 Encounter for immunization Z23 [facility] [address] [address] 17 May, 2016 Generalized anxiety disorder F41.1 and Depressive disorder, not elsewhere classified F32.9 [facility] [id number] [place] [address] 28 Apr, 2016 Hypertension I10 [facility] [id number] [place] [address] 22 Apr, 2016 Cervicalgia M54.2 [facility] [id number] [place] [address] 12 Apr, 2016 Cervicalgia M54.2 [facility] [id number] [place] [address] 09 Mar, 2016 Generalized anxiety disorder F41.1 and Depressive disorder, not elsewhere classified F32.9 [facility] [id number] [place] [id number] 14 Feb, 2016 Visit for dental examination Z01.20 [facility] [id number] [place] [address] 11 Feb, 2016 Pseudoseizures F44.5 ; Migraine without status migrainosus, not intractable, unspecified migraine type G43.909 and Essential hypertension I10 [facility] [id number] [place] [id number] Feb, Dental examination Z01.20 [facility] [id number] [place] [address] 05 Feb, 2016 Generalized anxiety disorder F41.1 and Depressive disorder, not elsewhere classified F32.9 [facility] [address] [place] [address] Jan, Tachycardia R00.0 [place] [address] [address] December, Eustachian tube dysfunction, bilateral H69.83 [place] [id number] [place] [address] December, Generalized anxiety disorder F41.1 and Depressive disorder, not elsewhere classified F32.9 [place] [address] [address] Nov, [place] [address] [address] Nov, [place] [id number] [place] [address] Nov, Hypertension I10 ; Onychomycosis B35.1 ; [...] and Complex cyst of left ovary N83.29 [place] [id number] [place] [address] 14 Nov, 2015 Sinusitis J32.9 [place] [id number] [place] [address] Oct, Complex cyst of left ovary N83.29 [place] [id number] [place] [address] Oct, Onychomycosis B35.1 [facility] [address] [place] [id number] Oct, Dental examination Z01.20 [place] [id number] [place] [address] 09 Oct, 2016 Well woman exam Z01.419 [...] R92.2 and History of colon polyps Z86.010 [place] [address] [address] Oct, Generalized anxiety disorder F41.1 and Depressive disorder, not elsewhere classified F32.9 [place] [address] [address] 22 Sep, 2015 Hypertension I10 and Onychomycosis B35.1 [place] [id number] [place] [address] 16 Sep, 2015 Skin tags, multiple acquired L91.8 [place] [address] [address] Aug, [place] [id number] [place] [address] Aug, [place] [id number] [place] [address] Aug, [place] [id number] [place] [address] Aug, Generalized anxiety disorder F41.1 and Depressive disorder, not elsewhere classified F32.9 [place] [id number] [place] [address] Jul, Skin lesion L98.9 [place] [address] [address] Jun, Generalized anxiety disorder F41.1 and Depressive disorder, not elsewhere classified F32.9 [facility] [id number] [place] [address] Jun, [facility] [id number] [place] [address] Jun, Generalized anxiety disorder F41.1 [facility] [id number] [place] [address] May, Encounter for immunization Z23 and Right shoulder pain M25.511 [facility] [id number] [place] [address] Apr, [facility] [address] [address] Apr, Generalized anxiety disorder 300.02 and Depressive disorder, not elsewhere classified 311 [facility] [address] [id number] Mar, Dental examination V72.2 [facility] [id number] [place] [address] Mar, Generalized anxiety disorder 300.02 and Depressive disorder, not elsewhere classified 311 [facility] [id number] [place] [address] Mar, Depression, major, recurrent, 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.35 and 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 [facility] [id number] [place] [address] Feb, Generalized anxiety disorder 300.02 and Depressive disorder, not elsewhere classified 311 [facility] [id number] [place] [address] [id number] Feb, Dental examination V72.2 [facility] [id number] [place] [address] Jan, Generalized anxiety disorder 300.02 and Depressive disorder, not elsewhere classified 311 [facility] [address] [address] Jan, [facility] [address], [place] [address] December, Generalized anxiety disorder 300.02 and Depressive disorder, not elsewhere classified 311 [facility] [address], [place] [address] 08 Dec, 2014 Major depressive disorder, recurrent, unspecified 296.30 and Panic disorder with agoraphobia 300.21 [facility] [address], [place] [address] 14 Nov, 2014 [facility] [address], [place] [address] Nov, [facility] [address], [place] [address] Oct, [facility] [address], [place] [address] Oct, [facility] [address], [place] [address] Oct, [facility] [address], [place] [address] Oct, [facility] [address], [place] [address] Sep, [facility] [address], [place] [address] Sep, [facility] [address], [place] [address] Sep, [facility] [address], [place] [address] Sep, [facility] [address], [place] [address] Sep, [facility] [address], [place] [address] Sep, [facility] [place] [facility] [address] [id number] [place] [address] Sep, 2014 [facility] [place] [facility] [address] [id number] [place] [address] Sep, 2014 [facility] [place] [facility] [address] [id number] [place] [address] Sep, 2014 [facility] [place] [facility] [address] [id number] [place] [address] Sep, 2014 [facility] [place] [facility] [address] [id number] [place] [address] Aug, [facility] [place] [facility] [address] [id number] [place] [address] Aug, [facility] [place] [facility] [address] [id number] [place] [address] Jul, [facility] [place] [facility] [address] [id number] [place] [address] Jul, [facility] [place] [facility] [address] [id number] [place] [address] 18 Jul, 2014 [facility] [place] [facility] [address] [id number] [place] [address] Jul, [facility] [place] [facility] [address] [id number], [place] [address] Jul, [facility] [place] [facility] [address] [id number], [place] [address] Jul, [facility] [place] [facility] [address] [id number] [place] [address] 05 Jul, 2014 [facility] [place] [facility] [address] [id number] [place] [address] 05 Jul, 2014 [facility] [place] [facility] [address] [facility] [id number] [place] [address] Jul, [facility] [place] [facility] [address] [id number] [place] [address] Jul, [facility] [place] [facility] [address] [id number] [place] [address] Jul, [facility] [place] [facility] [address] [id number] [place] [address] Jul, [facility] [place] [facility] [address] [id number] [place] [address] Jun, [facility] [place] [facility] [address] [id number] [place] [address] Jun, [facility] [place] [facility] [address] [id number] [place] [address] May, [facility] [place] [facility] [address] [id number] [place] [address] May, [facility] [place] [facility] [address] [id number] [place] [address] May, [facility] [place] [facility] [address] [id number] [place] [address] May, [facility] [place] [facility] [address] [id number] [place] [address] May, [facility] [place] [facility] [address] [id number] [place] [address] May, [facility] [place] [facility] [address] [id number] [place] [address] May, [facility] [place] [facility] [address] [id number], [place] [address] May, [facility] [place] [facility] [address] [id number] [place] [address] May, [facility] [place] [facility] [address] [id number] [place] [address] May, [facility] [place] [facility] [address] [id number], [place] [address] May, [facility] [place] [facility] [address] [id number] [place] [address] May, [facility] [place] [facility] [address] [id number] [place] [address] Apr, [facility] [place] [facility] [address] [id number] [place] [address] Apr, [facility] [place] [facility] [address] [id number] [place] [address] Apr, [facility] [place] [facility] [address] [id number] [place] [address] Apr, [facility] [place] [facility] [address] [id number] [place] [address] Apr, [facility] [place] [facility] [address] [id number] [place] [address] Apr, [facility] [place] [facility] [address] [id number] [place] [address] Feb, [facility] [place] [facility] [address] [id number] [place] [address] Feb, [facility] [place] [facility] [address] [id number] [place] [address] Feb, [facility] [place] [facility] [address] [id number] [place] [address] Feb, [facility] [place] [facility] [address] [id number] [place] [address] Feb, [facility] [place] [facility] [address] [id number] [place] [address] Feb, [facility] [place] [facility] [address] [id number] [place] [address] Jan, [facility] [place] [facility] [address] [id number] [place] [address] Jan, [facility] [place] [facility] [address] [id number] [place] [address] Jan, [facility] [place] [facility] [address] [id number] [place] [address] Jan, [facility] [place] [facility] [address] [id number] [place] [address] Jan, [facility] [place] [facility] [address] [id number] [place] [address] Jan, [facility] [place] [facility] [address] [id number] [place] [address] Jan, [facility] [place] [facility] [address] [id number] [place] [address] Jan, [facility] [place] [facility] [address] [id number] [place] [address] December, [facility] [place] [facility] [address] [id number] [place] [address] December, [facility] [place] [facility] [address] [id number] [place] [address] December, [facility] [place] [facility] [address] [id number] [place] [address] December, [facility] [place] [facility] [address] [id number] [place] [address] Nov, [facility] [place] [facility] [address] [id number] [place] [address] Nov, [facility] [place] [facility] [address] [id number] [place] [address] Nov, [facility] [place] [facility] [address] [id number] [place] [address] Nov, [facility] [place] [facility] [address] [id number] [place] [address] Nov, [facility] [place] [facility] [address] [id number] [place] [address] Nov, [facility] [place] [facility] [address] [id number] [place] [address] Nov, [facility] [address] [id number] [place] [address] Nov, [facility] [place] [facility] [address] [id number] [place] [address] Oct, [facility] [place] [facility] [address] [id number] [place] [address] Oct, [facility] [place] [facility] [address] [id number] [place] [address] Sep, [facility] [place] [facility] [address] [id number] [place] [address] Sep, [facility] [address] [id number] [place] [id number] Sep, [facility] [place] [facility] [address] [id number] [place] [address] Sep, [facility] [address] [id number] [place] [address] Sep, [facility] [place] [facility] [address] [id number] [place] [address] Sep, [facility] [address] [id number] [place] [address] Aug, [facility] [place] [facility] [address] [id number] [place] [address] Aug, [facility] [place] [facility] [address] [id number] [place] [address] Aug, [facility] [place] [facility] [address] [id number] [place] [address] Aug, [facility] [place] [facility] [address] [id number] [place] [address] Jul, [facility] [place] [facility] [address] [id number] [place] [address] Jul, [facility] [place] [facility] [address] [id number] [place] [address] Jul, [facility] [place] [facility] [address] [id number] [place] [address] Jul, [facility] [place] [facility] [address] [id number] [place] [address] Jun, [facility] [place] [facility] [address] [id number] [place] [address] Jun, [facility] [place] [facility] [address] [id number] [place] [address] May, [facility] [place] [facility] [address] [id number] [place] [address] May, [facility] [place] [facility] [address] [id number] [place] [address] May, [facility] [place] [facility] [address] [id number] [place] [address] May, [facility] [place] [facility] [address] [id number] [place] [address] May, [facility] [place] [facility] [address] [id number] [place] [address] 17 Apr, 2013 [facility] [place] [facility] [address] [id number], [place] [address] Apr, [facility] [place] [facility] [address] [id number], [place] [address] 29 Mar, 2013 [facility] [place] [facility] [address] [id number] [place] [address] Mar, [facility] [place] [facility] [address] [id number] [place] [address] 15 Mar, 2013 [facility] [place] [facility] [address] [id number] [place] [address] Mar, [facility] [place] [facility] [address] [id number] [place] [address] 17 Feb, 2013 [facility] [address] [id number] [place] [address] 17 Feb, 2013 [facility] [address] [id number] [place] [address] 16 Feb, 2013 [facility] [address] [id number] [place] [address] Feb, [facility] [address] [id number] [place] [address] Feb, [facility] [address] [id number] [place] [address] Jan, [facility] [address] [id number] [place] [address] Jan, [facility] [address] [id number] [place] [address] Jan, [facility] [address] [id number] [place] [address] Jan, [facility] [address] [id number] [place] [address] Jan, [facility] [address] [id number] [place] [address] December, [facility] [address] [id number] [place] [address] December, [facility] [place] [facility] [address] [id number] [place] [address] Nov, [facility] [place] [facility] [address] [id number] [place] [address] Nov, [facility] [place] [facility] [address] [id number] [place] [address] Oct, [facility] [place] [facility] [address] [id number] [place] [address] Oct, [facility] [place] [facility] [address] [id number] [place] [address] Oct, [facility] [address] [id number] [place] [address] 14 Sep, 2012 [facility] [address] [id number] [place] [address] Aug, [facility] [address] [id number] [place] [address] 16 Aug, 2012 [facility] [address] [id number] [place] [address] Aug, [facility] [address] [id number] [place] [address] Aug, [facility] [address] [id number] [place] [address] Jul, [facility] [address] [id number] [place] [address] Jul, [facility] [address] [id number] [place] [address] Jul, [facility] [address] [id number] [place] [address] Jul, [facility] [address] [id number] [place] [address] Jul, [facility] [address] [id number] [place] [address] Jul, [facility] [address] [id number] [place] [address] Jul, [facility] [place] [facility] [address] [id number] [place] [address] Jul, [facility] [address] [id number] [place] [address] Jun, [facility] [address] [id number] [place] [address] Jun, [facility] [place] [facility] [address] [id number] [place] [address] Jun, [facility] [place] [facility] [address] [id number] [place] [address] Jun, [facility] [place] [facility] [address] [id number] [place] [address] Jun, [facility] [place] [facility] [address] [id number] [place] [address] Jun, [facility] [place] [facility] [address] [id number] [place] [address] May, [facility] [place] [facility] [address] [id number] [place] [address] May, [facility] [place] [facility] [address] [id number] [place] [address] May, [facility] [place] [facility] [address] [id number] [place] [address] May, [facility] [place] [facility] [address] [id number] [place] [address] Apr, [facility] [place] [facility] [address] [id number] [place] [address] Apr, [facility] [place] [facility] [address] [id number], [place] [address] Mar, [facility] [place] [facility] [address] [id number], [place] [address] Jan, [facility] [place] [facility] [address] [id number] [place] [address] Jan, [facility] [place] [facility] [address] [id number] [place] [address] 16 Jan, 2012 [facility] [place] [facility] [address] [id number] [place] [address] 15 Jan, 2012 [facility] [place] [facility] [address] [id number] [place] [address] 14 Jan, 2012 [facility] [address] [id number] [place] [address] 14 Jan, 2012 [facility] [place] [facility] [address] [id number] [place] [address] 07 Jan, 2012 [facility] [address] [id number] [place] [address] December, [facility] [address] [id number] [place] [address] December, [facility] [address] [id number] [place] [address] December, [facility] [address] [id number] [place] [address] December, [facility] [address] [id number] [place] [address] Nov, [facility] [address] [id number] [place] [address] 05 Nov, 2011 [facility] [address] [id number] [place] [address] 29 Oct, 2011 [facility] [address] [id number] [place] [address] Oct, [facility] [address] [id number] [place] [address] Oct, [facility] [address] [id number] [place] [address] Sep, [facility] [place] [facility] [address] [id number] [place] [address] Sep, [facility] [place] [facility] [address] [id number] [place] [address] Sep, [facility] [place] [facility] [address] [id number] [place] [address] Aug, [facility] [place] [facility] [address] [id number] [place] [address] Aug, [facility] [place] [facility] [address] [id number] [place] [address] Aug, [facility] [place] [facility] [address] [id number] [place] [address] Aug, [facility] [place] [facility] [address] [id number] [place] [address] Aug, [facility] [place] [facility] [address] [id number] [place] [address] Aug, [facility] [place] [facility] [address] [id number] [place] [address] Aug, [facility] [place] [facility] [address] [id number] [place] [address] Jul, [facility] [place] [facility] [address] [id number] [place] [address] Jul, [facility] [place] [facility] [address] [id number] [place] [address] 30 Jun, 2011 [facility] [place] [facility] [address] [id number] [place] [address] 28 Jun, 2011 [facility] [place] [facility] [address] [id number], [place] [address] 17 Jun, 2011 [facility] [place] [facility] [address] [id number], [place] [address] 15 Jun, 2011 [facility] [place] [facility] [address] [id number] [place] [address] 14 Jun, 2011 [facility] [place] [facility] [address] [id number] [place] [address] 14 Jun, 2011 [facility] [place] [facility] [address] [id number] [place] [address] 07 Jun, 2011 [facility] [place] [facility] [address] [id number] [place] [address] 07 Jun, 2011 [facility] [place] [facility] [address] [id number] [place] [address] Jun, [facility] [place] [facility] [address] [id number] [place] [address] Jun, [facility] [place] [facility] [address] [id number] [place] [address] May, [facility] [place] [facility] [address] [id number] [place] [address] May, [facility] [place] [facility] [address] [id number] [place] [address] May, [facility] [place] [facility] [address] [id number] [place] [address] 24 May, 2011 [facility] [place] [facility] [address] [id number] [place] [address] May, [facility] [place] [facility] [address] [id number] [place] [address] May, [facility] [place] [facility] [address] [id number] [place] [address] Feb, [facility] [place] [facility] [address] [id number] [place] [address] December, [facility] [place] [facility] [address] [id number] [place] [address] Jul, [facility] [place] [facility] [address] [id number] [place] [address] Jul, [facility] [place] [facility] [address] [id number] [place] [address] Jul, [facility] [place] [facility] [address] [id number] [place] [address] Jul, [facility] [place] [facility] [address] [id number] [place] [address] 15 Jun, 2010 [facility] [id number] [address] Jul, [facility] [id number], [place] [address] Jul, [facility] [id number], [place] [address] Jul, [facility] [id number], [place] [address] Jul, [facility] [id number], [place] [address] Jul, [facility] [id number] [place] [address] Jul, [facility] [id number], [place] [address] Jan, [facility] [id number], [place] [address] 16 Sep, 2008 [facility] [address] [id number] [address] Sep, IMMUNIZATIONS No Known Immunizations SOCIAL HISTORY Never Assessed REASON FOR VISIT INNOPRAN XL PA Required/Approved PLAN OF CARE VITAL SIGNS MEDICATIONS Medication Instructions Dosage Frequency Start Date End Date Duration Status InnoPran XL 120 MG Orally Once a day 1 capsule at bedtime 24h Active InnoPran XL 80 MG Orally Once a day. Take along with 120mg 1 capsule at bedtime May, Active RESULTS No Results PROCEDURES No Known [...]
--- OUTSIDE RECORDS SUMMARY | 2019-01-22 21:10 | XMS REPORT ---
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 Name Role Phone JONNATHAN KELLY Unavailable PROBLEMS Type Condition ICD9-CM Code GVE38-LZ Code Onset Dates Condition Status SNOMED Code Problem Family history of diabetes mellitus Z83.3 Active 525822695 Problem Hot flashes N95.1 Active 135189561 Problem Excessive and frequent menstruation with irregular cycle N92.1 Active 784853334 Problem Diverticulitis K57.92 Active 789603301 Problem Gastroesophageal reflux disease with esophagitis K21.0 Active 126625153 Problem Mitral valve prolapse I34.1 Active 261052385 Problem Perimenopausal N95.1 Active 593100966284586 Problem Tachycardia R00.0 Active 1729451 Problem Abnormal uterine bleeding (AUB) N93.9 Active 57845491000181 Problem History of diverticulitis Z87.19 Active 818849191418242 Problem History of colon polyps Z86.010 Active 929274990 Problem Generalized anxiety disorder F41.1 Active 422599000 Problem Dense breast tissue R92.2 Active 763079641 Problem Hypertension I10 Active 36492441 Problem History of ovarian cyst Z87.42 Active 35188590 ALLERGIES Substance Reaction Event Type Date Status Sulfamethoxazole-Trimethoprim anaphylaxis Drug Allergy Apr, Active Erythromycin rash Drug Allergy Apr, Active Hydrocodone vomiting Non Drug Allergy Apr, Active ENCOUNTERS Encounter Location Date Diagnosis [facility] [address] [facility] [id number] [address] Jan, [facility] [address] [facility] [id number] [address] Jan, [facility] [address] [facility] [id number] [address] December, Generalized anxiety disorder F41.1 [facility] [address] [id number], [place] [address] 16 Oct, 2017 Encounter for dental examination Z01.20 [facility] [address] [id number], [place] [address] 06 Oct, 2017 Encounter for dental examination Z01.20 [facility] [address] [id number], [place] [address] 02 Oct, 2017 Dental examination Z01.20 [facility] [id number] [place] [address] Oct, Generalized anxiety disorder F41.1 [facility] [id number] [place] [address] Aug, Dental examination Z01.20 [facility] [id number] [place] [address] Aug, Generalized anxiety disorder F41.1 [facility] [id number] [place] [address] Aug, [facility] [id number] [place] [address] Aug, Encounter for dental examination Z01.20 [facility] [id number] [place] [address] Aug, Subacute maxillary sinusitis J01.00 [facility] [id number] [address] Jul, Dental examination Z01.20 [facility] [id number] [place] [address] Jul, Generalized anxiety disorder F41.1 [facility] [id number] [place] [address] Jul, Diverticulitis K57.92 [facility] [id number] [place] [address] Jun, Encounter for immunization Z23 [facility] [address] [id number], [place] [address] Jun, Dental examination Z01.20 [facility] [id number] [place] [address] 14 Jun, 2017 Generalized anxiety disorder F41.1 [facility] [address] [id number], [place] [address] 07 Jun, 2017 Dental examination Z01.20 [facility] [address] [id number] [address] May, [facility] [id number] [place] [id number] May, Dental examination Z01.20 [facility] [address] [id number] [place] [id number] May, Dental examination Z01.20 [facility] [address] [id number], [place] [address] May, Dental examination Z01.20 [facility] [id number] [place] [address] May, [facility] [id number] [place] [address] May, Generalized anxiety disorder F41.1 [facility] [id number] [place] [address] 05 May, 2017 Localized edema R60.0 ; Yeast vaginitis B37.3 and Gastroesophageal reflux disease with esophagitis K21.0 [facility] [address] [id number] [place] [id number] Apr, Dental examination Z01.20 [facility] [address] [id number], [place] [address] Apr, Dental examination Z01.20 [facility] [address] [id number], [place] [address] 05 Apr, 2017 Dental examination Z01.20 [facility] [address] [id number] [place] [address] Mar, Dyspepsia R10.13 [facility] [address] [id number] [address] Mar, Generalized anxiety disorder F41.1 [facility] [address] [id number], [place] [address] Mar, Encounter for dental examination Z01.20 [facility] [address] [id number] [place] [id number] Mar, [facility] [id number] [place] [address] [id number] Mar, Dental examination Z01.20 [facility] [id number] [place] [address] Feb, Hypertension I10 and Tachycardia R00.0 [facility] [address] [id number], [place] [address] Feb, [facility] [id number] [place] [address] Feb, Generalized anxiety disorder F41.1 [facility] [address] [place] [id number] Feb, Dental examination Z01.20 [facility] [address] [id number] [address] Jan, Generalized anxiety disorder F41.1 [facility] [address] [id number] [address] December, Generalized anxiety disorder F41.1 [facility] [address]00565100[place] [id number] December, Encounter for dental examination Z01.20 [facility] [address] [id number] [address] Nov, [facility] [id number] [place] [address] Nov, [facility] [id number] [place] [address] Nov, Generalized anxiety disorder F41.1 [facility] [id number] [place] [address] Oct, [facility] [id number] [place] [id number] Oct, Dental examination Z01.20 [facility] [id number] [place] [address] Oct, Vaginal dryness N89.8 [place] [address] [address] Oct, Pseudoseizures F44.5 [place] [id number] [place] [address] Oct, Generalized anxiety disorder F41.1 [facility] [id number] [place] [address] 28 Sep, 2016 Abnormal uterine bleeding (AUB) N93.9 ; Vaginal dryness N89.8 and Screening breast examination Z12.39 [facility] [id number] [place] [address] Sep, Dental examination Z01.20 [facility] [id number] [place] [address] Sep, Generalized anxiety disorder F41.1 [facility] [id number] [place] [address] 06 Sep, 2016 Unspecified ovarian cyst, right side N83.201 ; Unspecified ovarian cyst, left side N83.202 ; Yeast infection of the vagina B37.3 ; Mitral valve prolapse I34.1 and Hypertension I10 [facility] [id number] [place] [address] Aug, Generalized anxiety disorder F41.1 [facility] [id number] [place] [address] 28 Jul, 2016 [facility] [address] [address] Jul, Generalized anxiety disorder F41.1 [facility] [id number] [place] [address] Jun, Generalized anxiety disorder F41.1 [facility] [id number] [place] [address] May, Encounter for immunization Z23 [facility] [address] [address] 17 May, 2016 Generalized anxiety disorder F41.1 and Depressive disorder, not elsewhere classified F32.9 [facility] [id number] [place] [address] 28 Apr, 2016 Hypertension I10 [facility] [id number] [place] [address] 22 Apr, 2016 Cervicalgia M54.2 [facility] [id number] [place] [address] 12 Apr, 2016 Cervicalgia M54.2 [facility] [id number] [place] [address] 09 Mar, 2016 Generalized anxiety disorder F41.1 and Depressive disorder, not elsewhere classified F32.9 [facility] [id number] [place] [id number] 14 Feb, 2016 Visit for dental examination Z01.20 [facility] [id number] [place] [address] 11 Feb, 2016 Pseudoseizures F44.5 ; Migraine without status migrainosus, not intractable, unspecified migraine type G43.909 and Essential hypertension I10 [facility] [address] [place] [id number] 06 Feb, 2016 Dental examination Z01.20 [place] [address] [address] 05 Feb, 2016 Generalized anxiety disorder F41.1 and Depressive disorder, not elsewhere classified F32.9 [place] [id number] [place] [address] Jan, Tachycardia R00.0 [place] [id number] [place] [address] December, Eustachian tube dysfunction, bilateral H69.83 [place] [id number] [place] [address] December, Generalized anxiety disorder F41.1 and Depressive disorder, not elsewhere classified F32.9 [place] [id number] [place] [address] Nov, [place] [id number] [place] [address] Nov, [place] [id number] [place] [address] Nov, Hypertension I10 ; Onychomycosis B35.1 ; [...] and Complex cyst of left ovary N83.29 [place] [address] [place] [address] 14 Nov, 2015 Sinusitis J32.9 [place] [id number] [place] [address] Oct, Complex cyst of left ovary N83.29 [place] [id number] [place] [address] Oct, Onychomycosis B35.1 [facility] [address] [id number] [id number] 17 Oct, 2015 Dental examination Z01.20 [facility] [address] [place] [address] 09 Oct, 2015 Well woman exam Z01.419 [...] R92.2 and History of colon polyps Z86.010 [place] [id number] [place] [address] Oct, Generalized anxiety disorder F41.1 and Depressive disorder, not elsewhere classified F32.9 [place] [id number] [place] [address] Sep, Hypertension I10 and Onychomycosis B35.1 [place] [address] [place] [address] 16 Sep, 2015 Skin tags, multiple acquired L91.8 [place] [id number] [place] [address] Aug, [place] [id number] [place] [address] Aug, [place] [id number] [place] [address] Aug, [place] [id number] [place] [address] Aug, Generalized anxiety disorder F41.1 and Depressive disorder, not elsewhere classified F32.9 [place] [id number] [address] Jul, Skin lesion L98.9 [facility] [address] [address] Jun, Generalized anxiety disorder F41.1 and Depressive disorder, not elsewhere classified F32.9 [facility] [id number] [place] [address] Jun, [facility] [address] [address] Jun, Generalized anxiety disorder F41.1 [place] [address] [address] May, Encounter for immunization Z23 and Right shoulder pain M25.511 [place] [id number] [place] [address] Apr, [place] [address] [address] Apr, Generalized anxiety disorder 300.02 and Depressive disorder, not elsewhere classified [address] [facility] [address] [id number] Mar, Dental examination V72.2 [place] [id number] [place] [address] Mar, Generalized anxiety disorder 300.02 and Depressive disorder, not elsewhere classified 311 [facility] [id number] [place] [address] Mar, Depression, major, recurrent, 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.35 and 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 [facility] [address] [address] Feb, Generalized anxiety disorder 300.02 and Depressive disorder, not elsewhere classified [address] [facility] [id number] [place] [id number] Feb, Dental examination V72.2 [facility] [address] [address] Jan, Generalized anxiety disorder 300.02 and Depressive disorder, not elsewhere classified 311 [facility] [id number] [place] [address] Jan, [facility] [address] [id number] [address] December, Generalized anxiety disorder 300.02 and Depressive disorder, not elsewhere classified 311 [facility] [id number] [place] [address] December, Major depressive disorder, recurrent, unspecified 296.30 and Panic disorder with agoraphobia 300.21 [facility] [address] [id number] [address] Nov, [facility] [id number] [place] [address] Nov, [facility] [address] [id number] [address] Oct, [facility] [address] [place] [address] Oct, [facility] [address] [id number] [address] Oct, [facility] [address] [address] Oct, [facility] [address] [id number] [address] Sep, [facility] [address] [address] Sep, [facility] [address] [address] Sep, [facility] [address] [address] Sep, [facility] [place] [facility] [address] [id number] [place] [address] Sep, 2014 [facility] [place] [facility] [address] [id number] [place] [address] Sep, 2014 [facility] [place] [facility] [address] [id number] [place] [address] Sep, 2014 [facility] [place] [facility] [address] [id number] [place] [address] Sep, 2014 [facility] [place] [facility] [address] [id number] [place] [address] Sep, 2014 [facility] [place] [facility] [address] [id number] [place] [address] Sep, 2014 [facility] [place] [facility] [address] [facility] [id number] [place] [address] Aug, [facility] [place] [facility] [address] [id number] [place] [address] Aug, [facility] [place] [facility] [address] [id number] [place] [address] Jul, [facility] [place] [facility] [address] [facility] [id number] [place] [address] Jul, [facility] [place] [facility] [address] [facility] [id number] [place] [address] 18 Jul, 2014 [facility] [place] [facility] [address] [id number] [place] [address] 18 Jul, 2014 [facility] [place] [facility] [address] [id number] [place] [address] Jul, [facility] [place] [facility] [address] [id number] [place] [address] Jul, [facility] [place] [facility] [address] [id number] [place] [address] 05 Jul, 2014 [facility] [place] [facility] [address] [id number] [address] Jul, [facility] [place] [facility] [address] [id number] [place] [address] Jul, [facility] [place] [facility] [address] [id number] [place] [address] Jul, [facility] [place] [facility] [address] [id number] [place] [address] Jul, [facility] [place] [facility] [address] [id number] [place] [address] Jul, [facility] [place] [facility] [address] [id number] [place] [address] Jun, [facility] [place] [facility] [address] [id number] [place] [address] Jun, [facility] [place] [facility] [address] [id number] [place] [address] May, [facility] [place] [facility] [address] [id number] [place] [address] May, [facility] [place] [facility] [address] [id number] [address] May, [facility] [place] [facility] [address] [id number] [place] [address] May, [facility] [place] [facility] [address] [id number] [place] [address] May, [facility] [place] [facility] [address] [id number] [address] May, [facility] [place] [facility] [address] [id number] [place] [address] May, [facility] [place] [facility] [address] [id number] [address] May, [facility] [place] [facility] [address] [id number] [place] [address] May, [facility] [place] [facility] [address] [id number] [place] [address] May, [facility] [place] [facility] [address] [id number] [place] [address] May, [facility] [place] [facility] [address] [id number] [place] [address] May, [facility] [place] [facility] [address] [id number] [place] [address] Apr, [facility] [place] [facility] [address] [id number] [place] [address] Apr, [facility] [place] [facility] [address] [id number] [place] [address] Apr, [facility] [place] [facility] [address] [id number] [place] [address] Apr, [facility] [place] [facility] [address] [id number] [place] [address] Apr, [facility] [place] [facility] [address] [id number] [place] [address] Apr, [facility] [place] [facility] [address] [id number] [place] [address] Feb, [facility] [place] [facility] [address] [id number] [place] [address] Feb, [facility] [place] [facility] [address] [id number] [place] [address] Feb, [facility] [place] [facility] [address] [id number] [place] [address] Feb, [facility] [place] [facility] [address] [id number] [place] [address] Feb, [facility] [place] [facility] [address] [id number] [place] [address] Feb, [facility] [place] [facility] [address] [id number] [place] [address] Jan, [facility] [place] [facility] [address] [id number] [place] [address] Jan, [facility] [place] [facility] [address] [id number] [place] [address] Jan, [facility] [place] [facility] [address] [id number] [place] [address] Jan, [facility] [place] [facility] [address] [id number] [place] [address] Jan, [facility] [place] [facility] [address] [id number] [place] [address] Jan, [facility] [place] [facility] [address] [id number] [place] [address] Jan, [facility] [place] [facility] [address] [id number] [place] [address] Jan, [facility] [place] [facility] [address] [id number] [place] [address] December, [facility] [place] [facility] [address] [id number] [place] [address] December, [facility] [place] [facility] [address] [id number] [place] [address] December, [facility] [place] [facility] [address] [id number] [place] [address] December, [facility] [place] [facility] [address] [id number] [place] [address] Nov, [facility] [place] [facility] [address] [id number] [place] [address] Nov, [facility] [place] [facility] [address] [id number] [place] [address] Nov, [facility] [place] [facility] [address] [id number] [place] [address] Nov, [facility] [place] [facility] [address] [id number] [place] [address] Nov, [facility] [place] [facility] [address] [id number] [place] [address] Nov, [facility] [place] [facility] [address] [id number] [place] [address] Nov, [facility] [place] [facility] [address] [id number] [place] [address] Nov, [facility] [place] [facility] [address] [id number] [place] [address] Oct, [facility] [place] [facility] [address] [id number] [place] [address] Oct, [facility] [place] [facility] [address] [id number] [place] [address] Sep, [facility] [place] [facility] [address] [id number] [place] [address] Sep, [facility] [place] [facility] [address] [facility] [id number] [place] [id number] Sep, [facility] [place] [facility] [address] [id number] [place] [address] Sep, [facility] [place] [facility] [address] [id number] [place] [address] Sep, [facility] [place] [facility] [address] [id number] [place] [address] Sep, [facility] [place] [facility] [address] [id number] [place] [address] Aug, [facility] [place] [facility] [address] [id number] [place] [address] Aug, [facility] [place] [facility] [address] [id number] [place] [address] Aug, [facility] [place] [facility] [address] [id number] [place] [address] Aug, [facility] [place] [facility] [address] [id number] [place] [address] Jul, [facility] [place] [facility] [address] [id number] [place] [address] Jul, [facility] [place] [facility] [address] [id number] [place] [address] Jul, [facility] [place] [facility] [address] [id number] [place] [address] Jul, [facility] [place] [facility] [address] [id number] [place] [address] Jun, [facility] [place] [facility] [address] [id number] [place] [address] Jun, [facility] [place] [facility] [address] [id number] [place] [address] May, [facility] [place] [facility] [address] [id number] [place] [address] May, [facility] [place] [facility] [address] [id number] [place] [address] May, [facility] [place] [facility] [address] [id number] [place] [address] May, [facility] [place] [facility] [address] [id number] [place] [address] May, [facility] [place] [facility] [address] [id number] [address] 17 Apr, 2013 [facility] [place] [facility] [address] [id number] [place] [address] Apr, [facility] [place] [facility] [address] [id number] [place] [address] Mar, [facility] [place] [facility] [address] [id number] [place] [address] Mar, [facility] [place] [facility] [address] [id number] [address] Mar, [facility] [address] [id number] [place] [address] Mar, [facility] [place] [facility] [address] [id number] [place] [address] Feb, [facility] [place] [facility] [address] [id number] [place] [address] Feb, [facility] [place] [facility] [address] [id number] [place] [address] Feb, [facility] [place] [facility] [address] [id number] [place] [address] Feb, [facility] [place] [facility] [address] [id number] [place] [address] Feb, [facility] [address] [id number] [place] [address] Jan, [facility] [place] [facility] [address] [id number] [place] [address] Jan, [facility] [place] [facility] [address] [id number] [place] [address] Jan, [facility] [place] [facility] [address] [id number] [place] [address] Jan, [facility] [place] [facility] [address] [id number] [place] [address] Jan, [facility] [place] [facility] [address] [id number] [place] [address] December, [facility] [place] [facility] [address] [id number] [place] [address] December, [facility] [place] [facility] [address] [id number] [place] [address] Nov, [facility] [place] [facility] [address] [id number] [place] [address] Nov, [facility] [place] [facility] [address] [id number] [place] [address] 19 Oct, 2012 [facility] [address] [id number] [place] [address] 13 Oct, 2012 [facility] [place] [facility] [address] [id number] [place] [address] 05 Oct, 2012 [facility] [address] [id number] [place] [address] 14 Sep, 2012 [facility] [address] [id number] [place] [address] 24 Aug, [address] [facility] [address] [id number] [place] [address] 16 Aug, [address] [facility] [address] [id number] [place] [address] 15 Aug, [address] [facility] [address] [id number] [place] [address] Aug, [facility] [address] [id number] [place] [address] Jul, [facility] [address] [id number] [place] [address] Jul, [facility] [address] [id number] [place] [address] Jul, [facility] [address] [id number] [place] [address] Jul, [facility] [address] [id number] [place] [address] Jul, [facility] [place] [facility] [address] [id number] [place] [address] Jul, [facility] [place] [facility] [address] [id number] [place] [address] Jul, [facility] [address] [id number] [place] [address] Jul, [facility] [place] [facility] [address] [id number] [place] [address] Jun, [facility] [place] [facility] [address] [id number] [place] [address] Jun, [facility] [place] [facility] [address] [id number] [place] [address] Jun, [facility] [place] [facility] [address] [id number] [place] [address] Jun, [facility] [place] [facility] [address] [id number] [place] [address] Jun, [facility] [place] [facility] [address] [id number] [place] [address] Jun, [facility] [place] [facility] [address] [facility] [id number] [place] [address] May, [facility] [place] [facility] [address] [id number] [place] [address] May, [facility] [place] [facility] [address] [id number] [place] [address] May, [facility] [place] [facility] [address] [facility] [id number] [address] May, [facility] [place] [facility] [address] [id number] [address] Apr, [facility] [place] [facility] [address] [id number] [address] Apr, [facility] [place] [facility] [address] [id number] [place] [address] Mar, [facility] [place] [facility] [address] [id number] [address] Jan, [facility] [place] [facility] [address] [facility] [id number] [place] [address] Jan, [facility] [place] [facility] [address] [id number] [place] [address] 16 Jan, 2012 [facility] [address] [id number] [place] [address] 15 Jan, 2012 [facility] [place] [facility] [address] [id number] [place] [address] 14 Jan, 2012 [facility] [place] [facility] [address] [id number] [place] [address] 14 Jan, 2012 [facility] [place] [facility] [address] [id number] [place] [address] 07 Jan, 2012 [facility] [place] [facility] [address] [id number] [place] [address] December, [facility] [place] [facility] [address] [id number] [place] [address] December, [facility] [address] [id number] [place] [address] December, [facility] [place] [facility] [address] [id number] [place] [address] December, [facility] [place] [facility] [address] [id number] [place] [address] Nov, [facility] [place] [facility] [address] [id number] [place] [address] Nov, [facility] [place] [facility] [address] [id number] [place] [address] 29 Oct, 2011 [facility] [place] [facility] [address] [id number] [place] [address] 28 Oct, 2011 [facility] [place] [facility] [address] [id number] [place] [address] 15 Oct, 2011 [facility] [place] [facility] [address] [id number] [place] [address] Sep, [facility] [place] [facility] [address] [id number] [place] [address] Sep, [facility] [place] [facility] [address] [id number] [place] [address] Sep, [facility] [address] [id number] [place] [address] Aug, [facility] [place] [facility] [address] [id number] [place] [address] Aug, [facility] [place] [facility] [address] [id number] [place] [address] Aug, [facility] [address] [id number] [place] [address] Aug, [facility] [place] [facility] [address] [id number] [place] [address] Aug, [facility] [address] [id number] [place] [address] Aug, [facility] [address] [id number] [place] [address] Aug, [facility] [place] [facility] [address] [id number] [place] [address] Jul, [facility] [address] [id number] [place] [address] Jul, [facility] [place] [facility] [address] [id number] [place] [address] Jun, [facility] [place] [facility] [address] [id number] [address] 28 Jun, 2011 [facility] [place] [facility] [address] [id number] [place] [address] 17 Jun, 2011 [facility] [place] [facility] [address] [id number] [place] [address] 15 Jun, 2011 [facility] [place] [facility] [address] [id number] [place] [address] 14 Jun, 2011 [facility] [place] [facility] [address] [id number] [address] 14 Jun, 2011 [facility] [place] [facility] [address] [id number] [place] [address] Jun, [facility] [place] [facility] [address] [id number] [place] [address] Jun, [facility] [place] [facility] [address] [id number] [place] [address] Jun, [facility] [place] [facility] [address] [id number] [place] [address] Jun, [facility] [place] [facility] [address] [id number] [place] [address] May, [facility] [place] [facility] [address] [id number] [place] [address] May, [facility] [place] [facility] [address] [id number] [place] [address] May, [facility] [place] [facility] [address] [id number] [place] [address] 24 May, 2011 [facility] [place] [facility] [address] [id number] [place] [address] May, [facility] [place] [facility] [address] [id number] [place] [address] May, [facility] [place] [facility] [address] [id number] [address] Feb, [facility] [place] [facility] [address] [id number] [place] [address] December, [facility] [place] [facility] [address] [id number] [place] [address] Jul, [facility] [place] [facility] [address] [id number] [place] [address] Jul, [facility] [place] [facility] [address] [id number] [place] [address] Jul, [facility] [place] [facility] [id number] [address] Jul, [facility] [id number] [address] Jun, [facility] [id number] [address] Jul, [facility] [id number] [address] Jul, [facility] [id number] [address] Jul, [facility] [id number] [address] Jul, [facility] [id number] [address] Jul, [facility] [id number] [address] Jul, [facility] [id number] [address] Jan, [facility] [id number] [address] Sep, [facility] [address] [id number] [address] Sep, IMMUNIZATIONS No Known Immunizations SOCIAL HISTORY Never Assessed REASON FOR VISIT MARISEL PLAN OF CARE Activity Details Follow Up prn Reason: VITAL SIGNS Height 66 in 2017-05-20 Blood pressure systolic 101 mmHg 2017-05-20 Blood pressure diastolic 81 mmHg 2017-05-20 MEDICATIONS Medication Instructions Dosage Frequency Start Date End Date Duration Status Percocet 5-325 MG Orally every 6 hrs 1 tablet as needed 6h Active InnoPran XL 120 MG Orally Once a day 1 capsule at bedtime 24h 30 Active Clorazepate Dipotassium 7.5 MG Orally 4 times a day 1 tablet as needed 6h 90 days Active Omeprazole 20 mg Orally Once a day, ac 1 capsule Mar, 30 day(s) Active InnoPran XL 80 MG Orally Once a day. Take along with 120mg 1 capsule at bedtime May, 30 Active RESULTS No Results PROCEDURES Procedure Date Ordered Result Body Site LTD ORAL EVALUATION - PROBLEM FOCUS May 20, 2017 Dental no charge May 20, 2017 Billing Notes on claim May 20, 2017 INSTRUCTIONS MEDICATIONS ADMINISTERED No Known Medications [...]
--- OUTSIDE RECORDS SUMMARY | 2019-01-22 21:11 | XMS REPORT ---
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 Name Role Phone LAY LEVIN Unavailable PROBLEMS Type Condition ICD9-CM Code QAE72-CM Code Onset Dates Condition Status SNOMED Code Problem Family history of diabetes mellitus Z83.3 Active 133091381 Problem Hot flashes N95.1 Active 177387885 Problem Excessive and frequent menstruation with irregular cycle N92.1 Active 277639439 Problem Diverticulitis K57.92 Active 686428717 Problem Gastroesophageal reflux disease with esophagitis K21.0 Active 161278145 Problem Mitral valve prolapse I34.1 Active 621579480 Problem Perimenopausal N95.1 Active 503643993990213 Problem Tachycardia R00.0 Active 9716911 Problem Abnormal uterine bleeding (AUB) N93.9 Active 66858025469263 Problem History of diverticulitis Z87.19 Active 888119223791974 Problem History of colon polyps Z86.010 Active 922335557 Problem Generalized anxiety disorder F41.1 Active 218434351 Problem Dense breast tissue R92.2 Active 918228813 Problem Hypertension I10 Active 75319928 Problem History of ovarian cyst Z87.42 Active 10803405 ALLERGIES No Information ENCOUNTERS Encounter Location Date Diagnosis [facility] [address] [facility] [id number], [place] [address] December, [facility] [address] [id number], [place] [address] Oct, Encounter for dental examination Z01.20 [facility] [address] [id number], [place] [address] Oct, Encounter for dental examination Z01.20 [facility] [id number] [place] [address] Oct, Dental examination Z01.20 [facility] [address] [id number] [address] Oct, Generalized anxiety disorder F41.1 [facility] [address] [id number], [place] [address] 30 Aug, 2017 Dental examination Z01.20 [facility] [id number] [place] [address] Aug, Generalized anxiety disorder F41.1 [facility] [id number] [place] [address] Aug, [facility] [id number] [place] [address] 09 Aug, 2017 Encounter for dental examination Z01.20 [facility] [id number] [place] [address] Aug, Subacute maxillary sinusitis J01.00 [facility] [id number] [place] [address] 22 Jul, 2017 Dental examination Z01.20 [facility] [address] [place] [address] 19 Jul, 2017 Generalized anxiety disorder F41.1 [facility] [address] [place] [address] 11 Jul, 2017 Diverticulitis K57.92 [facility] [id number] [place] [address] 28 Jun, 2017 Encounter for immunization Z23 [facility] [id number] [place] [address] 22 Jun, 2017 Dental examination Z01.20 [facility] [id number] [place] [address] 14 Jun, 2017 Generalized anxiety disorder F41.1 [facility] [address] [id number], [place] [address] Jun, Dental examination Z01.20 [facility] [address], [place] [address] May, [facility] [address] [id number] [id number] May, Dental examination Z01.20 [facility] [address] [place] [id number] May, Dental examination Z01.20 [facility] [address] [id number], [place] [address] May, Dental examination Z01.20 [facility] [address] [place] [address] May, [facility] [id number] [place] [address] May, Generalized anxiety disorder F41.1 [facility] [address] [place] [address] May, Localized edema R60.0 ; Yeast vaginitis B37.3 and Gastroesophageal reflux disease with esophagitis K21.0 [facility] [address] [id number] Apr, Dental examination Z01.20 [facility] [address] [id number], [place] [address] Apr, Dental examination Z01.20 [facility] [address] [id number], [place] [address] Apr, Dental examination Z01.20 [facility] [id number] [place] [address] Mar, Dyspepsia R10.13 [facility] [address]65[address], [place] [address] Mar, Generalized anxiety disorder F41.1 [facility] [address] [id number], [place] [address] Mar, Encounter for dental examination Z01.20 [facility] [id number] [place] [id number] Mar, [facility] [id number] [place] [id number] Mar, Dental examination Z01.20 [facility] [id number] [place] [address] Feb, Hypertension I10 and Tachycardia R00.0 [facility] [address] [id number], [place] [address] Feb, [facility] [id number] [place] [address] Feb, Generalized anxiety disorder F41.1 [facility] [id number] [place] [id number] Feb, Dental examination Z01.20 [facility] [address] [place] [address] Jan, Generalized anxiety disorder F41.1 [facility] [id number] [place] [address] December, Generalized anxiety disorder F41.1 [facility] [address] [place] [id number] December, Encounter for dental examination Z01.20 [facility] [address]00565100[place], [place] [address] Nov, [facility] [id number] [place] [address] Nov, [facility] [id number] [place] [address] Nov, Generalized anxiety disorder F41.1 [facility] [address] [place] [address] Oct, [facility] [address] [id number] Oct, Dental examination Z01.20 [facility] [id number] [place] [address] Oct, Vaginal dryness N89.8 [place] [id number] [place] [address] Oct, Pseudoseizures F44.5 [place] [id number] [place] [address] Oct, Generalized anxiety disorder F41.1 [place] [id number] [place] [address] Sep, Abnormal uterine bleeding (AUB) N93.9 ; Vaginal dryness N89.8 and Screening breast examination Z12.39 [place] [id number] [place] [address] Sep, Dental examination Z01.20 [place] [id number] [place] [address] Sep, Generalized anxiety disorder F41.1 [place] [id number] [place] [address] 06 Sep, 2016 Unspecified ovarian cyst, right side N83.201 ; Unspecified ovarian cyst, left side N83.202 ; Yeast infection of the vagina B37.3 ; Mitral valve prolapse I34.1 and Hypertension I10 [place] [address] [place] [address] Aug, Generalized anxiety disorder F41.1 [place] [id number] [place] [address] Jul, [place] [id number] [place] [address] Jul, Generalized anxiety disorder F41.1 [place] [id number] [place] [address] 15 Jun, 2016 Generalized anxiety disorder F41.1 [facility] [id number] [place] [address] 28 May, 2016 Encounter for immunization Z23 [facility] [id number] [place] [address] 17 May, 2016 Generalized anxiety disorder F41.1 and Depressive disorder, not elsewhere classified F32.9 [facility] [id number] [place] [address] 28 Apr, 2016 Hypertension I10 [facility] [id number] [place] [address] 22 Apr, 2016 Cervicalgia M54.2 [facility] [id number] [place] [address] 12 Apr, 2016 Cervicalgia M54.2 [facility] [address] [address] Mar, Generalized anxiety disorder F41.1 and Depressive disorder, not elsewhere classified F32.9 [facility] [address] [id number] Feb, Visit for dental examination Z01.20 [facility] [id number] [place] [address] Feb, Pseudoseizures F44.5 ; Migraine without status migrainosus, not intractable, unspecified migraine type G43.909 and Essential hypertension I10 [facility] [id number] [place] [id number] Feb, Dental examination Z01.20 [facility] [address] [address] Feb, Generalized anxiety disorder F41.1 and Depressive disorder, not elsewhere classified F32.9 [facility] [id number] [place] [address] Jan, Tachycardia R00.0 [facility] [id number] [place] [address] December, Eustachian tube dysfunction, bilateral H69.83 [place] [id number] [place] [address] December, Generalized anxiety disorder F41.1 and Depressive disorder, not elsewhere classified F32.9 [place] [id number] [place] [address] Nov, [place] [id number] [place] [address] Nov, [place] [address] [address] Nov, Hypertension I10 ; Onychomycosis B35.1 ; [...] cyst of left ovary N83.29 [place] [address] [place] [address] Nov, Sinusitis J32.9 [place] [id number] [place] [address] Oct, Complex cyst of left ovary N83.29 [place] [address] [place] [address] Oct, Onychomycosis B35.1 [facility] [address] [place] [phone] Oct, Dental examination Z01.20 [place] [address] [place] [address] Oct, Well woman exam Z01.419 ; Encounter [...] History of colon polyps Z86.010 [place] [address] [address] 03 Oct, 2015 Generalized anxiety disorder F41.1 and Depressive disorder, not elsewhere classified F32.9 [place] [address] [address] 22 Sep, 2015 Hypertension I10 and Onychomycosis B35.1 [place] [address] [address] 16 Sep, 2015 Skin tags, multiple acquired L91.8 [place] [address] [address] Aug, [place] [address] [address] Aug, [place] [address] [address] Aug, [place] [address] [address] Aug, Generalized anxiety disorder F41.1 and Depressive disorder, not elsewhere classified F32.9 [place] [address] [address] Jul, Skin lesion L98.9 [place] [address] [address] Jun, Generalized anxiety disorder F41.1 and Depressive disorder, not elsewhere classified F32.9 [place] [address] [place] [address] Jun, [facility] [id number] [place] [address] Jun, Generalized anxiety disorder F41.1 [facility] [id number] [place] [address] May, Encounter for immunization Z23 and Right shoulder pain M25.511 [facility] [id number] [place] [address] Apr, [facility] [id number] [place] [address] Apr, Generalized anxiety disorder 300.02 and Depressive disorder, not elsewhere classified 311 [facility] [id number] [place] [address] [id number] Mar, Dental examination V72.2 [facility] [id number] [place] [address] Mar, Generalized anxiety disorder 300.02 and Depressive disorder, not elsewhere classified 311 [facility] [id number] [place] [address] Mar, Depression, major, recurrent, 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.35 and 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 [facility] [id number] [place] [address] Feb, Generalized anxiety disorder 300.02 and Depressive disorder, not elsewhere classified 311 [facility] [id number] [place] [address] [phone] Feb, Dental examination V72.2 [facility] [id number] [place] [address] Jan, Generalized anxiety disorder 300.02 and Depressive disorder, not elsewhere classified 311 [facility] [id number] [place] [address] Jan, [facility] [id number] [place] [address] December, Generalized anxiety disorder 300.02 and Depressive disorder, not elsewhere classified 311 [facility] [address], [place] [address] December, Major depressive disorder, recurrent, unspecified 296.30 and Panic disorder with agoraphobia 300.21 [facility] [address], [place] [address] 14 Nov, 2014 [facility] [address] [id number], [place] [address] Nov, [facility] [address] [place] [address] Oct, [facility] [id number] [place] [address] Oct, [facility] [address] [place] [address] Oct, [facility] [address], [place] [address] Oct, [facility] [address], [place] [address] Sep, [facility] [address], [place] [address] Sep, [facility] [address], [place] [address] Sep, [facility] [address], [place] [address] Sep, [facility] [address], [place] [address] Sep, [facility] [address], [place] [address] Sep, [facility] [address], [place] [address] Sep, [facility] [place] [facility] [address] [id number] [place] [address] Sep, 2014 [facility] [place] [facility] [address] [id number] [place] [address] Sep, 2014 [facility] [place] [facility] [address] [id number] [place] [address] Sep, 2014 [facility] [place] [facility] [address] [id number] [place] [address] Aug, [facility] [place] [facility] [address] [id number] [place] [address] Aug, [facility] [place] [facility] [address] [id number] [place] [address] Jul, [facility] [place] [facility] [address] [id number] [place] [address] Jul, [facility] [place] [facility] [address] [id number] [place] [address] Jul, [facility] [place] [facility] [address] [id number] [place] [address] Jul, [facility] [place] [facility] [address] [id number] [place] [address] Jul, [facility] [place] [facility] [address] [id number] [place] [address] Jul, [facility] [place] [facility] [address] [id number], [place] [address] 05 Jul, 2014 [facility] [place] [facility] [address] [id number] [place] [address] Jul, [facility] [place] [facility] [address] [id number] [place] [address] 04 Jul, 2014 [facility] [place] [facility] [address] [id number] [place] [address] Jul, [facility] [place] [facility] [address] [id number] [place] [address] Jul, [facility] [place] [facility] [address] [id number] [place] [address] Jul, [facility] [place] [facility] [address] [id number] [place] [address] Jun, [facility] [place] [facility] [address] [id number] [place] [address] Jun, [facility] [place] [facility] [address] [id number] [place] [address] May, [facility] [place] [facility] [address] [id number] [place] [address] May, [facility] [place] [facility] [address] [id number] [place] [address] May, [facility] [place] [facility] [address] [id number] [place] [address] May, [facility] [place] [facility] [address] [id number] [place] [address] May, [facility] [place] [facility] [address] [id number] [place] [address] May, [facility] [place] [facility] [address] [facility] [id number] [place] [address] May, [facility] [place] [facility] [address] [id number] [place] [address] May, [facility] [place] [facility] [address] [id number], [place] [address] May, [facility] [place] [facility] [address] [id number] [place] [address] May, [facility] [place] [facility] [address] [id number] [place] [address] May, [facility] [place] [facility] [address] [id number] [place] [address] May, [facility] [place] [facility] [address] [id number] [place] [address] Apr, [facility] [place] [facility] [address] [id number] [place] [address] Apr, [facility] [place] [facility] [address] [id number] [place] [address] Apr, [facility] [place] [facility] [address] [id number] [place] [address] Apr, [facility] [place] [facility] [address] [id number] [place] [address] Apr, [facility] [place] [facility] [address] [id number] [place] [address] Apr, [facility] [place] [facility] [address] [id number] [place] [address] Feb, [facility] [place] [facility] [address] [id number] [place] [address] Feb, [facility] [place] [facility] [address] [id number] [place] [address] Feb, [facility] [place] [facility] [address] [id number] [place] [address] Feb, [facility] [place] [facility] [address] [id number] [place] [address] Feb, [facility] [place] [facility] [address] [id number] [place] [address] Feb, [facility] [place] [facility] [address] [id number] [place] [address] Jan, [facility] [place] [facility] [address] [id number] [place] [address] Jan, [facility] [place] [facility] [address] [id number] [place] [address] Jan, [facility] [place] [facility] [address] [id number] [place] [address] Jan, [facility] [place] [facility] [address] [id number] [place] [address] Jan, [facility] [place] [facility] [address] [id number] [place] [address] Jan, [facility] [place] [facility] [address] [id number] [place] [address] Jan, [facility] [place] [facility] [address] [id number] [place] [address] Jan, [facility] [place] [facility] [address] [id number] [place] [address] December, [facility] [place] [facility] [address] [id number] [place] [address] December, [facility] [place] [facility] [address] [id number] [place] [address] December, [facility] [place] [facility] [address] [id number] [place] [address] December, [facility] [place] [facility] [address] [id number] [place] [address] Nov, [facility] [place] [facility] [address] [id number] [place] [address] Nov, [facility] [place] [facility] [address] [id number] [place] [address] Nov, [facility] [place] [facility] [address] [id number] [place] [address] Nov, [facility] [place] [facility] [address] [id number] [place] [address] Nov, [facility] [place] [facility] [address] [id number] [place] [address] Nov, [facility] [place] [facility] [address] [id number] [place] [address] Nov, [facility] [place] [facility] [address] [id number] [place] [address] Nov, [facility] [address] [id number] [place] [address] Oct, [facility] [place] [facility] [address] [id number] [place] [address] Oct, [facility] [place] [facility] [address] [id number] [place] [address] Sep, [facility] [place] [facility] [address] [id number] [place] [address] Sep, [facility] [place] [facility] [address] [id number] [place] [id number] Sep, [facility] [address] [facility] [id number] [place] [address] Sep, [facility] [place] [facility] [address] [id number] [place] [address] Sep, [facility] [address] [id number] [place] [address] Sep, [facility] [place] [facility] [address] [id number] [place] [address] Aug, [facility] [address] [id number] [place] [address] Aug, [facility] [place] [facility] [address] [id number] [place] [address] Aug, [facility] [place] [facility] [address] [id number] [place] [address] Aug, [facility] [place] [facility] [address] [id number] [place] [address] Jul, [facility] [place] [facility] [address] [id number] [place] [address] Jul, [facility] [place] [facility] [address] [id number] [place] [address] Jul, [facility] [place] [facility] [address] [id number] [place] [address] Jul, [facility] [place] [facility] [address] [id number] [place] [address] Jun, [facility] [place] [facility] [address] [id number] [place] [address] Jun, [facility] [place] [facility] [address] [id number] [place] [address] May, [facility] [facility] [address] [id number] [place] [address] May, [facility] [place] [facility] [address] [id number] [place] [address] May, [facility] [place] [facility] [address] [id number] [place] [address] May, [facility] [place] [facility] [address] [id number] [place] [address] May, [facility] [place] [facility] [address] [id number] [place] [address] Apr, [facility] [place] [facility] [address] [id number] [place] [address] Apr, [facility] [place] [facility] [address] [id number], [place] [address] Mar, [facility] [address] [id number], [place] [address] Mar, [facility] [place] [facility] [address] [id number] [place] [address] Mar, [facility] [place] [facility] [address] [id number] [place] [address] Mar, [facility] [place] [address] [id number] [place] [address] Feb, [facility] [place] [facility] [address] [id number] [place] [address] 17 Feb, 2013 [facility] [address] [id number] [place] [address] 16 Feb, 2013 [facility] [address] [id number] [place] [address] Feb, [facility] [address] [id number] [place] [address] Feb, [facility] [address] [id number] [place] [address] Jan, [facility] [address] [id number] [place] [address] Jan, [facility] [address] [id number] [place] [address] Jan, [facility] [address] [id number] [place] [address] Jan, [facility] [address] [id number] [place] [address] Jan, [facility] [address] [id number] [place] [address] December, [facility] [address] [id number] [place] [address] December, [facility] [address] [id number] [place] [address] Nov, [facility] [address] [id number] [place] [address] Nov, [facility] [address] [id number] [place] [address] Oct, [facility] [address] [id number] [place] [address] Oct, [facility] [address] [id number] [place] [address] Oct, [facility] [address] [id number] [place] [address] 14 Sep, 2012 [facility] [address] [id number] [place] [address] 24 Aug, 2012 [facility] [address] [id number] [place] [address] 16 Aug, 2012 [facility] [address] [id number] [place] [address] Aug, [facility] [address] [id number] [place] [address] Aug, [facility] [address] [id number] [place] [address] Jul, [facility] [address] [id number] [place] [address] Jul, [facility] [address] [id number] [place] [address] Jul, [facility] [address] [id number] [place] [address] Jul, [facility] [address] [id number] [place] [address] Jul, [facility] [address] [id number] [place] [address] Jul, [facility] [address] [id number] [place] [address] Jul, [facility] [address] [id number] [place] [address] Jul, [facility] [address] [id number] [place] [address] Jun, [facility] [address] [id number] [place] [address] Jun, [facility] [address] [id number] [place] [address] Jun, [facility] [address] [id number] [place] [address] Jun, [facility] [address] [id number] [place] [address] Jun, [facility] [address] [id number] [place] [address] Jun, [facility] [address] [id number] [place] [address] May, [facility] [address] [id number] [place] [address] May, [facility] [address] [id number] [place] [address] May, [facility] [address] [id number] [place] [address] May, [facility] [address] [id number] [place] [address] Apr, [facility] [address] [id number] [place] [address] Apr, [facility] [address] [id number] [place] [address] Mar, [facility] [address] [id number], [place] [address] 28 Jan, 2012 [facility] [address] [id number], [place] [address] 20 Jan, 2012 [facility] [address] [id number] [place] [address] 16 Jan, 2012 [facility] [address] [id number] [place] [address] 15 Jan, 2012 [facility] [address] [id number] [place] [address] 14 Jan, 2012 [facility] [address] [id number] [place] [address] 14 Jan, 2012 [facility] [address] [id number] [place] [address] Jan, [facility] [address] [id number] [place] [address] December, [facility] [address] [id number] [place] [address] December, [facility] [address] [id number] [place] [address] December, [facility] [address] [id number] [place] [address] December, [facility] [address] [id number] [place] [address] Nov, [facility] [address] [id number] [place] [address] Nov, [facility] [address] [id number] [place] [address] Oct, [facility] [address] [id number] [place] [address] Oct, [facility] [address] [id number] [place] [address] Oct, [facility] [address] [id number] [place] [address] Sep, [facility] [address] [id number] [place] [address] Sep, [facility] [address] [id number] [place] [address] Sep, [facility] [address] [id number] [place] [address] Aug, [facility] [address] [id number] [place] [address] Aug, [facility] [address] [id number] [place] [address] Aug, [facility] [address] [id number] [place] [address] Aug, [facility] [address] [id number] [place] [address] Aug, [facility] [address] [id number] [place] [address] Aug, [facility] [address] [id number] [place] [address] Aug, [facility] [address] [id number] [place] [address] Jul, [facility] [address] [id number] [place] [address] Jul, [facility] [address] [id number] [place] [address] 30 Jun, 2011 [facility] [address] [id number] [place] [address] 28 Jun, 2011 [facility] [address] [id number] [place] [address] 17 Jun, 2011 [facility] [address] [id number], [place] [address] 15 Jun, 2011 [facility] [address] [id number], [place] [address] 14 Jun, 2011 [facility] [address] [id number] [place] [address] 14 Jun, 2011 [facility] [address] [id number], [place] [address] 07 Jun, 2011 [facility] [address] [id number], [place] [address] 07 Jun, 2011 [facility] [address] [id number] [place] [address] 02 Jun, 2011 [facility] [address] [id number] [place] [address] Jun, [facility] [address] [id number] [place] [address] May, [facility] [address] [id number] [place] [address] May, [facility] [address] [id number] [place] [address] May, [facility] [address] [id number] [place] [address] 24 May, 2011 [facility] [address] [id number] [place] [address] May, [facility] [address] [id number] [place] [address] May, [facility] [address] [id number] [place] [address] Feb, [facility] [address] [id number] [place] [address] December, [facility] [address] [facility] [id number] [place] [address] Jul, [facility] [address] [id number] [place] [address] 29 Jul, 2010 [facility] [address] [id number] [place] [address] Jul, [facility] [address] [id number] [place] [address] Jul, [facility] [address] [id number] [place] [address] 15 Jun, 2010 [facility] [address] [id number] [place] [address] 31 Jul, 2009 [facility] [address] [id number], [place] [address] Jul, [facility] [address] [id number], [place] [address] Jul, [facility] [id number], [place] [address] Jul, [facility] [id number] [place] [address] Jul, [facility] [id number], [place] [address] Jul, [facility] [id number], [place] [address] Jan, [facility] [id number], [place] [address] Sep, [facility] [id number], [place] [address] Sep, IMMUNIZATIONS No Known Immunizations SOCIAL HISTORY Never Assessed REASON FOR VISIT PLAN OF CARE VITAL SIGNS MEDICATIONS Medication Instructions Dosage Frequency Start Date End Date Duration Status Magic Mouthwash Apply medicated swab to sore areas of the mouth to numb the pain As needed Dip cotton swab into medication Mar, As needed Active RESULTS No Results PROCEDURES No Known [...]
--- OUTSIDE RECORDS SUMMARY | 2019-01-22 21:12 | XMS REPORT ---
Author Author ENMA SAMSON Organization [facility] Address [address] [place] [address] Care Team Providers Care Service Consultant Name Role Phone ENMA SAMSON Unavailable PROBLEMS Type Condition ICD9-CM Code RSR10-QI Code Onset Dates Condition Status SNOMED Code Problem Family history of diabetes mellitus Z83.3 Active 557361125 Problem Hot flashes N95.1 Active 915460755 Problem Excessive and frequent menstruation with irregular cycle N92.1 Active 460639810 Problem Diverticulitis K57.92 Active 984021787 Problem Gastroesophageal reflux disease with esophagitis K21.0 Active 879563009 Problem Mitral valve prolapse I34.1 Active 237104054 Problem Perimenopausal N95.1 Active [id number] Problem Tachycardia R00.0 Active 6255090 Problem Abnormal uterine bleeding (AUB) N93.9 Active 20386054522221 Problem History of diverticulitis Z87.19 Active 303547952378234 Problem History of colon polyps Z86.010 Active 481085269 Problem Generalized anxiety disorder F41.1 Active 906603193 Problem Dense breast tissue R92.2 Active 075728725 Problem Hypertension I10 Active 11295188 Problem History of ovarian cyst Z87.42 Active 34807352 ALLERGIES No Information ENCOUNTERS Encounter Location Date Diagnosis [facility] [address] [facility] [id number] [address] December, [facility] [address] [facility] [id number] [address] Nov, [facility] [address] [id number], [place] [address] Oct, Encounter for dental examination Z01.20 [facility] [address] [id number], [place] [address] Oct, Encounter for dental examination Z01.20 [facility] [address] [id number], [place] [address] Oct, Dental examination Z01.20 [facility] [address]00565100[place] [address] Oct, Generalized anxiety disorder F41.1 [facility] [address] [id number], [place] [address] Aug, Dental examination Z01.20 [facility] [id number] [place] [address] Aug, Generalized anxiety disorder F41.1 [facility] [id number] [place] [address] Aug, [facility] [address] [place] [id number] [place] [address] Aug, Encounter for dental examination Z01.20 [facility] [id number] [place] [address] Aug, Subacute maxillary sinusitis J01.00 [facility] [id number], [place] [address] Jul, Dental examination Z01.20 [facility] [address]00565100[place] [address] Jul, Generalized anxiety disorder F41.1 [facility] [id number] [place] [address] Jul, Diverticulitis K57.92 [facility] [id number] [place] [address] Jun, Encounter for immunization Z23 [facility] [address] [id number], [place] [address] Jun, Dental examination Z01.20 [facility] [id number] [place] [address] Jun, Generalized anxiety disorder F41.1 [facility] [address] [id number], [place] [address] Jun, Dental examination Z01.20 [facility] [address] [id number] [place] [address] May, [facility] [address] [id number] [address] May, Dental examination Z01.20 [facility] [id number] [place] [id number] May, Dental examination Z01.20 [facility] [address] [id number], [place] [address] May, Dental examination Z01.20 [facility] [id number] [place] [address] May, [facility] [id number] [place] [address] May, Generalized anxiety disorder F41.1 [facility] [id number] [place] [address] May, Localized edema R60.0 ; Yeast vaginitis B37.3 and Gastroesophageal reflux disease with esophagitis K21.0 [facility] [address]00565100[place] [id number] Apr, Dental examination Z01.20 [facility] [address] [id number], [place] [address] Apr, Dental examination Z01.20 [facility] [id number] [place] [address] 05 Apr, 2017 Dental examination Z01.20 [facility] [id number] [place] [address] Mar, Dyspepsia R10.13 [facility] [address] [id number] [address] Mar, Generalized anxiety disorder F41.1 [facility] [address] [id number], [place] [address] Mar, Encounter for dental examination Z01.20 [facility] [address] [id number] [address] Mar, [facility] [id number] [place] [id number] Mar, Dental examination Z01.20 [facility] [id number] [place] [address] Feb, Hypertension I10 and Tachycardia R00.0 [facility] [address] [id number], [place] [address] Feb, [facility] [address] [id number] [place] [address] Feb, Generalized anxiety disorder F41.1 [facility] [address] [id number] [place] [address] [id number] Feb, Dental examination Z01.20 [facility] [id number] [place] [address] Jan, Generalized anxiety disorder F41.1 [facility] [address] [id number] [address] December, Generalized anxiety disorder F41.1 [facility] [address] [place] [id number] December, Encounter for dental examination Z01.20 [facility] [address] [id number] [place] [address] Nov, [facility] [id number] [place] [address] Nov, [facility] [address] [id number] [address] Nov, Generalized anxiety disorder F41.1 [facility] [id number] [place] [address] 30 Oct, 2016 [facility] [id number] [place] [address] [id number] Oct, Dental examination Z01.20 [facility] [id number] [place] [address] Oct, Vaginal dryness N89.8 [facility] [id number] [place] [address] Oct, Pseudoseizures F44.5 [place] [id number] [place] [address] Oct, Generalized anxiety disorder F41.1 [place] [id number] [place] [address] 28 Sep, 2016 Abnormal uterine bleeding (AUB) N93.9 ; Vaginal dryness N89.8 and Screening breast examination Z12.39 [facility] [id number] [place] [address] Sep, Dental examination Z01.20 [place] [id number] [place] [address] 20 Sep, 2016 Generalized anxiety disorder F41.1 [facility] [address] [place] [address] 06 Sep, 2016 Unspecified ovarian cyst, right side N83.201 ; Unspecified ovarian cyst, left side N83.202 ; Yeast infection of the vagina B37.3 ; Mitral valve prolapse I34.1 and Hypertension I10 [facility] [id number] [place] [address] Aug, Generalized anxiety disorder F41.1 [facility] [id number] [place] [address] Jul, [facility] [id number] [place] [address] Jul, Generalized anxiety disorder F41.1 [facility] [id number] [place] [address] Jun, Generalized anxiety disorder F41.1 [facility] [id number] [place] [address] 28 May, 2016 Encounter for immunization Z23 [facility] [address] [address] 17 May, 2016 Generalized anxiety disorder F41.1 and Depressive disorder, not elsewhere classified F32.9 [facility] [id number] [place] [address] 28 Apr, 2016 Hypertension I10 [facility] [id number] [place] [address] 22 Apr, 2016 Cervicalgia M54.2 [facility] [id number] [place] [address] 12 Apr, 2016 Cervicalgia M54.2 [facility] [id number] [place] [address] 09 Mar, 2016 Generalized anxiety disorder F41.1 and Depressive disorder, not elsewhere classified F32.9 [facility] [id number] [place] [address] [phone] Feb, Visit for dental examination Z01.20 [facility] [id number] [place] [address] 11 Feb, 2016 Pseudoseizures F44.5 ; Migraine without status migrainosus, not intractable, unspecified migraine type G43.909 and Essential hypertension I10 [facility] [id number] [place] [id number] Feb, Dental examination Z01.20 [facility] [id number] [place] [address] 05 Feb, 2016 Generalized anxiety disorder F41.1 and Depressive disorder, not elsewhere classified F32.9 [facility] [id number] [place] [address] Jan, Tachycardia R00.0 [place] [address] [address] December, Eustachian tube dysfunction, bilateral H69.83 [place] [id number] [place] [address] December, Generalized anxiety disorder F41.1 and Depressive disorder, not elsewhere classified F32.9 [facility] [address] [address] Nov, [place] [address] [address] Nov, [place] [id number] [place] [address] Nov, Hypertension I10 ; Onychomycosis B35.1 ; [...] and Complex cyst of left ovary N83.29 [place] [id number] [place] [address] 14 Nov, 2015 Sinusitis J32.9 [place] [id number] [place] [address] Oct, Complex cyst of left ovary N83.29 [place] [address] [address] Oct, Onychomycosis B35.1 [facility] [address] [place] [address] [phone] Oct, Dental examination Z01.20 [place] [id number] [place] [address] 09 Oct, 2016 Well woman exam Z01.419 [...] R92.2 and History of colon polyps Z86.010 [place] [address] [address] 03 Oct, 2015 Generalized anxiety disorder F41.1 and Depressive disorder, not elsewhere classified F32.9 [place] [address] [address] Sep, Hypertension I10 and Onychomycosis B35.1 [place] [address] [address] 16 Sep, 2015 Skin tags, multiple acquired L91.8 [place] [address] [address] Aug, [place] [id number] [place] [address] Aug, [place] [id number] [place] [address] Aug, [place] [address] [address] Aug, Generalized anxiety disorder F41.1 and Depressive disorder, not elsewhere classified F32.9 [place] [address] [address] Jul, Skin lesion L98.9 [place] [address] [address] Jun, Generalized anxiety disorder F41.1 and Depressive disorder, not elsewhere classified F32.9 [facility] [address] [place] [address] Jun, [facility] [id number] [place] [address] Jun, Generalized anxiety disorder F41.1 [facility] [id number] [place] [address] May, Encounter for immunization Z23 and Right shoulder pain M25.511 [facility] [id number] [place] [address] Apr, [facility] [id number] [place] [address] Apr, Generalized anxiety disorder 300.02 and Depressive disorder, not elsewhere classified 311 [facility] [id number] [place] [address] [id number] Mar, Dental examination V72.2 [facility] [id number] [place] [address] Mar, Generalized anxiety disorder 300.02 and Depressive disorder, not elsewhere classified 311 [facility] [id number] [place] [address] Mar, Depression, major, recurrent, 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.35 and 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 [facility] [id number] [place] [address] Feb, Generalized anxiety disorder 300.02 and Depressive disorder, not elsewhere classified 311 [facility] [id number] [place] [address] [id number] Feb, Dental examination V72.2 [facility] [id number] [place] [address] Jan, Generalized anxiety disorder 300.02 and Depressive disorder, not elsewhere classified 311 [facility] [id number] [place] [address] Jan, [facility] [address]65[address] [address] December, Generalized anxiety disorder 300.02 and Depressive disorder, not elsewhere classified 311 [facility] [address]65[address] [address] 08 Dec, 2014 Major depressive disorder, recurrent, unspecified 296.30 and Panic disorder with agoraphobia 300.21 [facility] [address] [address] 14 Nov, 2014 [facility] [address] [address] Nov, [facility] [address] [address] Oct, [facility] [address] [address] Oct, [facility] [address] [address] Oct, [facility] [address] [address] Oct, [facility] [address] [address] Sep, [facility] [address] [address] Sep, [facility] [address] [address] Sep, [facility] [address] [address] Sep, [facility] [address] [address] Sep, [facility] [address] [address] Sep, [facility] [place] [facility] [address] [id number] [place] [address] Sep, 2014 [facility] [place] [facility] [address] [id number] [place] [address] Sep, 2014 [facility] [place] [facility] [address] [id number] [place] [address] Sep, 2014 [facility] [place] [facility] [address] [id number] [place] [address] Sep, 2014 [facility] [place] [facility] [address] [id number] [place] [address] Aug, [facility] [place] [facility] [address] [id number] [place] [address] Aug, [facility] [place] [facility] [address] [id number] [place] [address] Jul, [facility] [place] [facility] [address] [id number] [place] [address] Jul, [facility] [place] [facility] [address] [id number] [place] [address] 18 Jul, 2014 [facility] [place] [facility] [address] [id number] [place] [address] 18 Jul, 2014 [facility] [place] [facility] [address] [id number] [place] [address] Jul, [facility] [place] [facility] [address] [id number] [address] Jul, [facility] [place] [facility] [address] [id number] [place] [address] 05 Jul, 2014 [facility] [place] [facility] [address] [id number] [place] [address] 05 Jul, 2014 [facility] [place] [facility] [address] [facility] [id number] [place] [address] Jul, [facility] [place] [facility] [address] [id number] [place] [address] Jul, [facility] [place] [facility] [address] [id number] [place] [address] Jul, [facility] [place] [facility] [address] [id number] [place] [address] Jul, [facility] [place] [facility] [address] [id number] [place] [address] Jun, [facility] [place] [facility] [address] [id number] [place] [address] Jun, [facility] [place] [facility] [address] [id number] [place] [address] May, [facility] [place] [facility] [address] [id number] [place] [address] May, [facility] [place] [facility] [address] [id number] [place] [address] May, [facility] [place] [facility] [address] [id number] [place] [address] May, [facility] [place] [facility] [address] [id number] [place] [address] May, [facility] [place] [facility] [address] [facility] [id number] [place] [address] May, [facility] [place] [facility] [address] [id number] [place] [address] May, [facility] [place] [facility] [address] [id number] [place] [address] May, [facility] [place] [facility] [address] [id number] [place] [address] May, [facility] [place] [facility] [address] [id number] [place] [address] May, [facility] [place] [facility] [address] [id number] [address] May, [facility] [place] [facility] [address] [id number] [place] [address] May, [facility] [place] [facility] [address] [id number] [place] [address] Apr, [facility] [place] [facility] [address] [id number] [place] [address] Apr, [facility] [place] [facility] [address] [id number] [place] [address] Apr, [facility] [place] [facility] [address] [id number] [place] [address] Apr, [facility] [place] [facility] [address] [id number] [place] [address] Apr, [facility] [place] [facility] [address] [id number] [place] [address] Apr, [facility] [place] [facility] [address] [id number] [place] [address] Feb, [facility] [place] [facility] [address] [id number] [place] [address] Feb, [facility] [place] [facility] [address] [id number] [place] [address] Feb, [facility] [place] [facility] [address] [id number] [place] [address] Feb, [facility] [place] [facility] [address] [id number] [place] [address] Feb, [facility] [place] [facility] [address] [id number] [place] [address] Feb, [facility] [place] [facility] [address] [id number] [place] [address] Jan, [facility] [place] [facility] [address] [id number] [place] [address] Jan, [facility] [place] [facility] [address] [id number] [place] [address] Jan, [facility] [place] [facility] [address] [id number] [place] [address] Jan, [facility] [place] [facility] [address] [id number] [place] [address] Jan, [facility] [place] [facility] [address] [id number] [place] [address] Jan, [facility] [place] [facility] [address] [id number] [place] [address] Jan, [facility] [place] [facility] [address] [id number] [place] [address] Jan, [facility] [place] [facility] [address] [id number] [place] [address] December, [facility] [place] [facility] [address] [id number] [place] [address] December, [facility] [place] [facility] [address] [id number] [place] [address] December, [facility] [place] [facility] [address] [id number] [place] [address] December, [facility] [place] [facility] [address] [id number] [place] [address] Nov, [facility] [place] [facility] [address] [id number] [place] [address] Nov, [facility] [place] [facility] [address] [id number] [place] [address] Nov, [facility] [place] [facility] [address] [id number] [place] [address] Nov, [facility] [place] [facility] [address] [id number] [place] [address] Nov, [facility] [place] [facility] [address] [id number] [place] [address] Nov, [facility] [place] [facility] [address] [id number] [place] [address] Nov, [facility] [place] [facility] [address] [id number] [place] [address] Nov, [facility] [place] [facility] [address] [id number] [place] [address] Oct, [facility] [place] [facility] [address] [id number] [place] [address] Oct, [facility] [place] [facility] [address] [id number] [place] [address] Sep, [facility] [place] [facility] [address] [id number] [place] [address] Sep, [facility] [place] [facility] [address] [id number] [place] [id number] Sep, [facility] [place] [facility] [address] [id number] [place] [address] Sep, [facility] [place] [facility] [address] [id number] [place] [address] Sep, [facility] [place] [facility] [address] [id number] [place] [address] Sep, [facility] [place] [facility] [address] [id number] [place] [address] Aug, [facility] [place] [facility] [address] [id number] [place] [address] Aug, [facility] [place] [facility] [address] [id number] [place] [address] Aug, [facility] [place] [facility] [address] [id number] [place] [address] Aug, [facility] [place] [facility] [address] [id number] [place] [address] Jul, [facility] [place] [facility] [address] [id number] [place] [address] Jul, [facility] [place] [facility] [address] [id number] [place] [address] Jul, [facility] [place] [facility] [address] [id number] [place] [address] Jul, [facility] [place] [facility] [address] [id number] [place] [address] Jun, [facility] [place] [facility] [address] [id number] [place] [address] Jun, [facility] [place] [facility] [address] [id number] [place] [address] May, [facility] [place] [facility] [address] [id number] [place] [address] May, [facility] [place] [facility] [address] [id number] [place] [address] May, [facility] [place] [facility] [address] [id number] [place] [address] May, [facility] [place] [facility] [address] [id number] [place] [address] May, [facility] [place] [facility] [address] [id number] [place] [address] 17 Apr, 2013 [facility] [place] [facility] [address] [id number] [address] Apr, [facility] [place] [facility] [address] [id number] [address] 29 Mar, 2013 [facility] [place] [facility] [address] [id number] [place] [address] Mar, [facility] [place] [facility] [address] [id number] [address] 15 Mar, 2013 [facility] [place] [facility] [address] [id number] [place] [address] Mar, [facility] [place] [facility] [address] [id number] [place] [address] 17 Feb, 2013 [facility] [address] [id number] [place] [address] 17 Feb, 2013 [facility] [place] [facility] [address] [id number] [place] [address] 16 Feb, 2013 [facility] [address] [id number] [place] [address] Feb, [facility] [place] [facility] [address] [id number] [place] [address] Feb, [facility] [address] [id number] [place] [address] Jan, [facility] [address] [id number] [place] [address] Jan, [facility] [address] [id number] [place] [address] Jan, [facility] [address] [id number] [place] [address] Jan, [facility] [place] [facility] [address] [id number] [place] [address] Jan, [facility] [address] [id number] [place] [address] December, [facility] [place] [facility] [address] [id number] [place] [address] December, [facility] [place] [facility] [address] [id number] [place] [address] Nov, [facility] [place] [facility] [address] [id number] [place] [address] Nov, [facility] [place] [facility] [address] [id number] [place] [address] Oct, [facility] [place] [facility] [address] [id number] [place] [address] Oct, [facility] [place] [facility] [address] [id number] [place] [address] 05 Oct, 2012 [facility] [address] [id number] [place] [address] 14 Sep, 2012 [facility] [address] [id number] [place] [address] Aug, [facility] [address] [id number] [place] [address] Aug, [facility] [address] [id number] [place] [address] Aug, [facility] [address] [id number] [place] [address] Aug, [facility] [address] [id number] [place] [address] Jul, [facility] [address] [id number] [place] [address] Jul, [facility] [address] [id number] [place] [address] Jul, [facility] [address] [id number] [place] [address] Jul, [facility] [address] [id number] [place] [address] Jul, [facility] [address] [id number] [place] [address] Jul, [facility] [address] [id number] [place] [address] Jul, [facility] [place] [facility] [address] [id number] [place] [address] Jul, [facility] [address] [id number] [place] [address] Jun, [facility] [address] [id number] [address] Jun, [facility] [place] [facility] [address] [id number] [place] [address] Jun, [facility] [place] [facility] [address] [id number] [place] [address] Jun, [facility] [place] [facility] [address] [id number] [place] [address] Jun, [facility] [place] [facility] [address] [id number] [place] [address] Jun, [facility] [place] [facility] [address] [id number] [place] [address] May, [facility] [place] [facility] [address] [id number] [place] [address] May, [facility] [place] [facility] [address] [id number] [place] [address] May, [facility] [place] [facility] [address] [id number] [place] [address] May, [facility] [place] [facility] [address] [id number] [place] [address] Apr, [facility] [place] [facility] [address] [id number] [place] [address] Apr, [facility] [place] [facility] [address] [id number] [address] Mar, [facility] [place] [facility] [address] [id number] [address] Jan, [facility] [place] [facility] [address] [id number] [place] [address] Jan, [facility] [place] [facility] [address] [id number] [place] [address] 16 Jan, 2012 [facility] [place] [facility] [address] [id number] [place] [address] 15 Jan, 2012 [facility] [place] [facility] [address] [id number] [place] [address] 14 Jan, 2012 [facility] [address] [id number] [place] [address] 14 Jan, 2012 [facility] [place] [facility] [address] [id number] [place] [address] 07 Jan, 2012 [facility] [address] [id number] [place] [address] December, [facility] [address] [id number] [place] [address] December, [facility] [address] [id number] [place] [address] December, [facility] [address] [id number] [place] [address] December, [facility] [address] [id number] [place] [address] Nov, [facility] [address] [id number] [place] [address] 05 Nov, 2011 [facility] [address] [id number] [place] [address] 29 Oct, 2011 [facility] [address] [id number] [place] [address] Oct, [facility] [place] [facility] [address] [id number] [place] [address] 15 Oct, 2011 [facility] [address] [id number] [place] [address] Sep, [facility] [place] [facility] [address] [id number] [place] [address] Sep, [facility] [place] [facility] [address] [id number] [place] [address] Sep, [facility] [place] [facility] [address] [id number] [place] [address] Aug, [facility] [place] [facility] [address] [id number] [place] [address] Aug, [facility] [place] [facility] [address] [id number] [place] [address] Aug, [facility] [place] [facility] [address] [id number] [place] [address] Aug, [facility] [place] [facility] [address] [id number] [place] [address] Aug, [facility] [place] [facility] [address] [id number] [place] [address] Aug, [facility] [place] [facility] [address] [id number] [place] [address] Aug, [facility] [place] [facility] [address] [id number] [place] [address] Jul, [facility] [place] [facility] [address] [id number] [place] [address] Jul, [facility] [place] [facility] [address] [id number] [place] [address] 30 Jun, 2011 [facility] [place] [facility] [address] [id number] [place] [address] 28 Jun, 2011 [facility] [place] [facility] [address] [id number] [address] 17 Jun, 2011 [facility] [place] [facility] [address] [id number] [address] 15 Jun, 2011 [facility] [place] [facility] [address] [id number] [place] [address] 14 Jun, 2011 [facility] [place] [facility] [address] [id number] [place] [address] 14 Jun, 2011 [facility] [place] [facility] [address] [id number] [place] [address] 07 Jun, 2011 [facility] [place] [facility] [address] [id number] [place] [address] Jun, [facility] [place] [facility] [address] [id number] [place] [address] Jun, [facility] [place] [facility] [address] [id number] [place] [address] Jun, [facility] [place] [facility] [address] [id number] [place] [address] May, [facility] [place] [facility] [address] [id number] [place] [address] May, [facility] [place] [facility] [address] [id number] [place] [address] May, [facility] [place] [facility] [address] [id number] [place] [address] 24 May, 2011 [facility] [place] [facility] [address] [id number] [place] [address] May, [facility] [place] [facility] [address] [id number] [place] [address] May, [facility] [place] [facility] [address] [id number] [place] [address] Feb, [facility] [place] [facility] [address] [facility] [id number] [place] [address] December, [facility] [place] [facility] [address] [id number] [place] [address] Jul, [facility] [place] [facility] [address] [id number] [place] [address] Jul, [facility] [place] [facility] [address] [id number] [place] [address] Jul, [facility] [place] [facility] [address] [id number] [place] [address] Jul, [facility] [place] [facility] [address] [id number] [place] [address] Jun, [facility] [id number] [address] Jul, [facility] [id number] [address] Jul, [facility] [id number] [address] Jul, [facility] [id number] [place] [address] Jul, [facility] [id number] [place] [address] Jul, [facility] [id number] [place] [address] Jul, [facility] [id number] [address] Jan, [facility] [id number] [address] Sep, [facility] [id number] [address] Sep, IMMUNIZATIONS No Known Immunizations SOCIAL HISTORY Never Assessed REASON FOR VISIT Other PLAN OF CARE VITAL SIGNS MEDICATIONS Unknown [...]
--- NOTE | 2019-01-22 21:13 | ED Abdominal Pain ---
General Chief Complaint: Abdominal/GI Problems Stated Complaint: ABD PAIN Nursing Triage Note: Patient advises that she has a hx of diverticulosis and has been experiencing abdominal that has become progressively worse. She advises she has been experiencing symptoms that differ from her normal pain. See notes for further. Sepsis Screen: No Definite Risk Source of Information: Patient Exam Limitations: No Limitations History of Present Illness Date Seen by Provider: January 22, 2019 Time Seen by Provider: 21:10 Initial Comments To ER with left lower quadrant abdominal pain this is been constant since October of this year. She has been on a couple of rounds of Cipro Flagyl without any resolution in her pain. She follows with to help but has been seeing Dr. Layton from surgery for this. Over the course of the past week she has developed sensation of swelling to the left lower abdomen, a new pain to the right side of the abdomen, nausea and chills and some blood in her stools. Timing/Duration: 1-2 Days Severity/Quality: Moderate Location: LLQ Radiation: RLQ Activities at Onset: None Associated Symptoms: No Fever/Chills; Nausea/Vomiting Allergies and Home Medications Allergies Coded Allergies: hydrocodone (Verified Allergy, Mild, VOMITING, 12/13/16) Sulfa (Sulfonamide Antibiotics) (Verified Allergy, Unknown, ANAPHYLAXIS, 01/22/19) erythromycin base (Verified Allergy, Unknown, 12/13/16) Home Medications Ciprofloxacin HCl 500 Mg Tablet, 500 MG PO BID Prescribed by: BRANDY CASTELLON on 08/02/17350 Clorazepate Dipotassium 7.5 Mg Tablet, 7.5 MG PO TID, (Reported) Lactobacillus Acidophilus 1 Each Capsule, 2 EACH PO QID Prescribed by: BRANDY CASTELLON on 08/02/17350 Metronidazole 500 Mg Tablet, 500 MG PO QID Prescribed by: BRANDY CASTELLON on 08/02/17350 Ondansetron 4 Mg Tab.rapdis, 4 MG PO Q4H Prescribed by: BRANDY CASTELLON on 08/02/17350 Propranolol Hcl 120 Mg Cap.sr.24h, 200 MG PO DAILY, (Reported) Tramadol HCl 50 Mg Tablet, 50 MG PO Q4H Prescribed by: BRANDY CASTELLON on 08/02/17350 Patient Home Medication List Home Medication List Reviewed: Yes Review of Systems Review of Systems Constitutional: see HPI, chills EENTM: No Symptoms Reported Respiratory: No Symptoms Reported Cardiovascular: No Symptoms Reported Gastrointestinal: See HPI, Abdominal Pain, Diarrhea (4), Nausea Genitourinary: No Symptoms Reported Musculoskeletal: no symptoms reported Skin: no symptoms reported Psychiatric/Neurological: No Symptoms Reported Endocrine: No Symptoms Reported Past Bibnnnr-Uircsn-Wlqfla Hx Patient Social History Alcohol Use: Denies Use Recreational Drug Use: No Smoking Status: Former Smoker Type Used: Cigarettes Former Smoker, Quit: Mar 25, 2018 2nd Hand Smoke Exposure: Yes Recent Foreign Travel: No Contact w/Someone Who Travel: No Recent Infectious Disease Expo: No Recent Hopitalizations: No Immunizations Up To Date Tetanus Booster (TDap): More than 5yrs Date of Pneumonia Vaccine: Sep 19, 2010 Date of Influenza Vaccine: Jun 03, 2016 Seasonal Allergies Seasonal Allergies: Yes Past Medical History Surgeries: Yes Abdominal, Gallbladder, Orthopedic Respiratory: No Cardiac: Yes (mild mitral valve prolapse) Valvular Heart Disease Neurological: Yes Seizure Disorder Reproductive Disorders: Yes (AUB, MENORRHAGIA) Female Reproductive Disorders: Endometriosis, Ovarian Cyst Sexually Transmitted Disease: No HIV/AIDS: No Genitourinary: Yes UTI-Chronic Gastrointestinal: Yes Gastroesophageal Reflux, Diverticulosis, Polyps, Irritable Bowel Musculoskeletal: No Endocrine: No HEENT: No Loss of Vision: Bilateral Hearing Impairment: Denies Cancer: No Psychosocial: Yes (SEIZURES ARE FROM ANXIETY ) Pseudo Seizures, Anxiety Integumentary: No Blood Disorders: No Adverse Reaction/Blood Tranf: No Family Medical History No Pertinent Family Hx Physical Exam Vital Signs Vital Signs - First Documented 01/22/19 20:46 Temp 98.4 Pulse 78 Resp 16 B/P (MAP) 127/89 (102) Pulse Ox 98 O2 Delivery Room Air Capillary Refill : Less Than 3 Seconds Height/Weight/BMI Height: 5'7.00" Weight: 174lbs. 6.0oz. 78.807159ts; 25.3 BMI Method:Stated General Appearance: WD/WN, no apparent distress HEENT: PERRL/EOMI, normal ENT inspection Respiratory: normal breath sounds, no respiratory distress, no accessory muscle use Gastrointestinal: normal bowel sounds, soft; No abnormal bowel sounds, No distended, No guarding, No rebound; tenderness Extremities: normal range of motion, non-tender Neurologic/Psychiatric: alert, normal mood/affect, oriented x 3 Skin: normal color, warm/dry Progress/Results/Core Measures Results/Orders Lab Results Laboratory Tests Test 01/22/19 20:40 Range/Units White Blood Count 10.4 4.3-11.0 10^3/uL Red Blood Count 4.44 4.35-5.85 10^6/uL Hemoglobin 13.4 11.5-16.0 G/DL Hematocrit 38 35-52 % Mean Corpuscular Volume 85 80-99 FL Mean Corpuscular Hemoglobin 30 25-34 PG Mean Corpuscular Hemoglobin Concent 35 32-36 G/DL Red Cell Distribution Width 12.3 10.0-14.5 % Platelet Count 324 130-400 10^3/uL Mean Platelet Volume 10.6 H 7.4-10.4 FL Neutrophils (%) (Auto) 52 42-75 % Lymphocytes (%) (Auto) 38 12-44 % Monocytes (%) (Auto) 8 0-12 % Eosinophils (%) (Auto) 2 0-10 % Basophils (%) (Auto) 1 0-10 % Neutrophils # (Auto) 5.4 1.8-7.8 X 10^3 Lymphocytes # (Auto) 3.9 1.0-4.0 X 10^3 Monocytes # (Auto) 0.8 0.0-1.0 X 10^3 Eosinophils # (Auto) 0.2 0.0-0.3 10^3/uL Basophils # (Auto) 0.1 0.0-0.1 10^3/uL Urine Color YELLOW Urine Clarity CLEAR Urine pH 6 5-9 Urine Specific [place] 1.020 1.016-1.022 Urine Protein 1+ H NEGATIVE Urine Glucose (UA) NEGATIVE NEGATIVE Urine Ketones NEGATIVE NEGATIVE Urine Nitrite NEGATIVE NEGATIVE Urine Bilirubin NEGATIVE NEGATIVE Urine Urobilinogen NORMAL NORMAL MG/DL Urine Leukocyte Esterase 1+ H NEGATIVE Urine RBC (Auto) NEGATIVE NEGATIVE Urine RBC NONE /HPF Urine WBC NONE /HPF Urine Squamous Epithelial Cells 0-2 /HPF Urine Crystals NONE /LPF Urine Bacteria TRACE /HPF Urine Casts PRESENT /LPF Urine Hyaline Casts RARE /LPF Urine Mucus NEGATIVE /LPF Urine Culture Indicated NO Sodium Level 136 135-145 MMOL/L Potassium Level 3.4 L 3.6-5.0 MMOL/L Chloride Level 101 98-107 MMOL/L Carbon Dioxide Level 25 21-32 MMOL/L Anion Gap 10 5-14 MMOL/L Blood Urea Nitrogen 16 7-18 MG/DL Creatinine 0.85 0.60-1.30 MG/DL Estimat Glomerular Filtration Rate > 60 BUN/Creatinine Ratio 19 Glucose Level 130 H 70-105 MG/DL Calcium Level 9.9 8.5-10.1 MG/DL Corrected Calcium 9.6 8.5-10.1 MG/DL Total Bilirubin 0.4 0.1-1.0 MG/DL Aspartate Amino Transf (AST/SGOT) 16 5-34 U/L Alanine Aminotransferase (ALT/SGPT) 9 0-55 U/L Alkaline Phosphatase 107 40-136 U/L Total Protein 7.8 6.4-8.2 GM/DL Albumin 4.4 3.2-4.5 GM/DL Lipase 12 8-78 U/L My Orders Orders - CHEYENNE ECHOLS CONCRETE TECHNICIAN Cbc With Automated Diff (01/22/19 20:34) Comprehensive Metabolic Panel (01/22/19 20:34) Lipase (01/22/19 20:34) Ua Culture If Indicated (01/22/19 20:34) Ed Iv/Invasive Line Start (01/22/19 20:34) Fentanyl Injection (Sublimaze Injection (01/22/19 21:15) Ondansetron Injection (Zofran Injectio (01/22/19 21:15) Lactated Ringers (Lr 1000 Ml Iv Solution (01/22/19 21:15) Ct Abdomen/Pelvis W (01/22/19 21:06) Iohexol Injection (Omnipaque 350 Mg/Ml 1 (01/22/19 21:45) Received Contrast (Hold Metformin- Contr (01/22/19 21:45) Ns (Ivpb) (Sodium Chloride 0.9% Ivpb Bag (01/22/19 21:45) Rx-Hyoscyamine Tab (Rx-Levsin Sl) (01/22/19 21:56) Ketorolac Injection (Toradol Injection) (01/22/19 22:00) Medications Given in ED Current Medications Medications Dose Ordered Sig/Cherry Route Start Time Stop Time Status Last Admin Dose Admin Fentanyl Citrate 50 mcg ONCE ONCE IVP 01/22/19 21:15 01/22/19 21:16 DC 01/22/19 21:15 50 MCG Iohexol 100 ml ONCE ONCE IV 01/22/19 21:45 01/22/19 22:00 DC 01/22/19 21:38 100 ML Ondansetron HCl 8 mg ONCE ONCE IVP 01/22/19 21:15 01/22/19 21:16 DC 01/22/19 21:15 8 MG Sodium Chloride 80 ml ONCE ONCE IV 01/22/19 21:45 01/22/19 22:00 DC 01/22/19 21:38 80 ML Vital Signs/I&O 01/22/19 20:46 Temp 98.4 Pulse 78 Resp 16 B/P (MAP) 127/89 (102) Pulse Ox 98 O2 Delivery Room Air Blood Pressure Mean: 102 Diagnostic Imaging Diagonstic Imaging: CT Comments NAME: [facility] REC#: [id number] PT STATUS: REG ER : 1965 PHYSICIAN: CHEYENNE ECHOLS APRN ADMIT DATE: 01/22/19/ER Draft Date of Exam:01/22/19 CT ABDOMEN/PELVIS W PROCEDURE: CT abdomen and pelvis with contrast. TECHNIQUE: Multiple contiguous axial images were obtained through the abdomen and pelvis after administration of intravenous contrast. Auto Exposure Controls were utilized during the CT exam to meet ALARA standards for radiation dose reduction. INDICATION: Increasing left lower quadrant pain. Comparison with 08/21/2017. FINDINGS: There is diffuse diverticulosis of the sigmoid colon. Mild thickening of the colon wall is seen though there are no findings that would indicate acute diverticulitis by CT scan at this time. There is normal bowel gas pattern throughout the colon. The appendix is visualized and normal. The uterus is not enlarged. There are no pelvic masses. There is no free fluid. No free air. The small bowel and stomach are not distended and appear normal. Lung bases are clear. The liver is normal. Gallbladder is absent. Pancreas is normal. Bile ducts not dilated. Spleen is normal. Adrenal glands are normal. Kidneys appear normal. There is normal enhancement of the abdominal organs and vessels following IV contrast. There is no evidence of intra-abdominal adenopathy. There are no bony lesions. IMPRESSION: 1. There is diverticulosis of the sigmoid colon though there are no changes at this time to indicate acute diverticulitis by CT. The appendix is visualized and normal. 2. No pelvic masses are demonstrated. No free air or free fluid. Dictated on workstation # [id number] Dict: 01/22/192147 Trans: 01/22/19 2154 [facility] [id number] Interpreted by: CAREY LYLES MD Electronically signed by: Departure Communication (Admissions) [id number] discussed with her the normal labs and CT scan. She's very surprised by this. I discussed with her the possibility of irritable bowel syndrome. She states that she has been told she has irritable bowel syndrome before but that would typically manifest as intermittent loose stools without significant pain. She has an appointment with Dr. Layton on Friday. Impression Primary Impression: Diverticulosis Additional Impressions: Abdominal pain Qualified Codes: R10.9 - Unspecified abdominal pain Irritable bowel Disposition: HOME, SELF-CARE Condition: Stable Departure-Patient Inst. Decision time for Depature: 21:49 [place]: [facility] [place] Primary Care Physician Patient Instructions: Acute Abdomen (Belly Pain) Add. Discharge Instructions: 1. Return to ER for any fevers or other concerns. Follow-up with your doctor next week. Call Dr. Layton on Friday to make an appointment to be seen. All discharge instructions reviewed with patient and/or family. Voiced u nderstanding. Copy Copies To 1: AN LAYTON PETER J APRN January 22, 2019 21:13
--- OUTSIDE RECORDS SUMMARY | 2019-01-22 21:13 | XMS REPORT ---
Author Author LETTY WILKINS Organization [facility] Address [address] [place] [address] Care Team Providers Care Cobbler Apprentice Name Role Phone LETTY WILKINS Unavailable PROBLEMS Type Condition ICD9-CM Code HXN64-TI Code Onset Dates Condition Status SNOMED Code Problem Family history of diabetes mellitus Z83.3 Active 991336470 Problem Hot flashes N95.1 Active 294525932 Problem Excessive and frequent menstruation with irregular cycle N92.1 Active 426592779 Problem Diverticulitis K57.92 Active 691745290 Problem Gastroesophageal reflux disease with esophagitis K21.0 Active 117011039 Problem Mitral valve prolapse I34.1 Active 565900466 Problem Perimenopausal N95.1 Active 203939811095571 Problem Tachycardia R00.0 Active 9344803 Problem Abnormal uterine bleeding (AUB) N93.9 Active 18942348083462 Problem History of diverticulitis Z87.19 Active 848929739521915 Problem History of colon polyps Z86.010 Active 888135384 Problem Generalized anxiety disorder F41.1 Active 062120040 Problem Dense breast tissue R92.2 Active 007027060 Problem Hypertension I10 Active 78743597 Problem History of ovarian cyst Z87.42 Active 70475548 ALLERGIES Substance Reaction Event Type Date Status Sulfamethoxazole-Trimethoprim anaphylaxis Drug Allergy Jul, Active Erythromycin rash Drug Allergy Jul, Active Hydrocodone vomiting Non Drug Allergy Jul, Active ENCOUNTERS Encounter Location Date Diagnosis [facility] [address] [facility] [id number], [place] [address] Feb, [facility] [address] [id number], [place] [address] Jan, Hypertension I10 and Acute non-recurrent maxillary sinusitis J01.00 [facility] [address] [id number], [place] [address] December, [facility] [address] [id number], [place] [address] December, Hypertension I10 [facility] [address] [facility] [id number], [place] [address] December, Generalized anxiety disorder F41.1 [facility] [address] [id number], [place] [address] 16 Oct, 2017 Encounter for dental examination Z01.20 [facility] [address] [id number], [place] [address] Oct, Encounter for dental examination Z01.20 [facility] [id number] [place] [address] Oct, Dental examination Z01.20 [facility] [id number] [place] [address] Oct, Generalized anxiety disorder F41.1 [facility] [address] [id number], [place] [address] Aug, Dental examination Z01.20 [facility] [id number] [place] [address] Aug, Generalized anxiety disorder F41.1 [facility] [address], [place] [address] Aug, [facility] [address] [id number], [place] [address] Aug, Encounter for dental examination Z01.20 [facility] [address] [id number], [place] [address] Aug, Subacute maxillary sinusitis J01.00 [facility] [address] [id number], [place] [address] Jul, Dental examination Z01.20 [facility] [id number] [place] [address] Jul, Generalized anxiety disorder F41.1 [facility] [id number] [place] [address] Jul, Diverticulitis K57.92 [facility] [id number] [place] [address] 28 Jun, 2017 Encounter for immunization Z23 [facility] [id number] [place] [address] 22 Jun, 2017 Dental examination Z01.20 [facility] [id number] [place] [address] 14 Jun, 2017 Generalized anxiety disorder F41.1 [facility] [id number] [place] [address] 07 Jun, 2017 Dental examination Z01.20 [facility] [id number] [place] [address] May, [facility] [id number] [place] [id number] May, Dental examination Z01.20 [facility] [address] [id number] May, Dental examination Z01.20 [facility] [id number] [place] [address] May, Dental examination Z01.20 [facility] [id number] [place] [address] May, [facility] [id number] [place] [address] May, Generalized anxiety disorder F41.1 [facility] [id number] [place] [address] 05 May, 2017 Localized edema R60.0 ; Yeast vaginitis B37.3 and Gastroesophageal reflux disease with esophagitis K21.0 [facility] [address] [id number] Apr, Dental examination Z01.20 [facility] [address] [id number], [place] [address] Apr, Dental examination Z01.20 [facility] [address] [id number], [place] [address] 05 Apr, 2017 Dental examination Z01.20 [facility] [id number] [place] [address] Mar, Dyspepsia R10.13 [facility] [id number] [place] [address] Mar, Generalized anxiety disorder F41.1 [facility] [id number] [place] [address] Mar, Encounter for dental examination Z01.20 [facility] [id number] [place] [address] [id number] Mar, [facility] [id number] [place] [id number] Mar, Dental examination Z01.20 [facility] [id number] [place] [address] Feb, Hypertension I10 and Tachycardia R00.0 [facility] [id number], [place] [address] Feb, [facility] [id number] [place] [address] Feb, Generalized anxiety disorder F41.1 [facility] [id number] [place] [id number] Feb, Dental examination Z01.20 [facility] [id number] [place] [address] Jan, Generalized anxiety disorder F41.1 [facility] [id number] [place] [address] December, Generalized anxiety disorder F41.1 [facility] [id number] [place] [id number] December, Encounter for dental examination Z01.20 [facility] [id number] [place] [address] Nov, [facility] [id number] [place] [address] Nov, [facility] [id number] [place] [address] Nov, Generalized anxiety disorder F41.1 [facility] [id number] [place] [address] Oct, [facility] [id number] [place] [id number] Oct, Dental examination Z01.20 [facility] [id number] [place] [address] Oct, Vaginal dryness N89.8 [facility] [id number] [place] [address] Oct, Pseudoseizures F44.5 [facility] [id number] [place] [address] Oct, Generalized anxiety disorder F41.1 [facility] [id number] [place] [address] Sep, Abnormal uterine bleeding (AUB) N93.9 ; Vaginal dryness N89.8 and Screening breast examination Z12.39 [facility] [id number] [place] [address] Sep, Dental examination Z01.20 [facility] [id number] [place] [address] Sep, Generalized anxiety disorder F41.1 [facility] [id number] [place] [address] 06 Sep, 2016 Unspecified ovarian cyst, right side N83.201 ; Unspecified ovarian cyst, left side N83.202 ; Yeast infection of the vagina B37.3 ; Mitral valve prolapse I34.1 and Hypertension I10 [facility] [address] [place] [address] Aug, Generalized anxiety disorder F41.1 [facility] [id number] [place] [address] Jul, [facility] [id number] [place] [address] Jul, Generalized anxiety disorder F41.1 [facility] [id number] [place] [address] Jun, Generalized anxiety disorder F41.1 [place] [facility] [id number] [place] [address] May, Encounter for immunization Z23 [facility] [id number] [place] [address] 17 May, 2016 Generalized anxiety disorder F41.1 and Depressive disorder, not elsewhere classified F32.9 [facility] [id number] [place] [address] 28 Apr, 2016 Hypertension I10 [facility] [id number] [place] [address] 22 Apr, 2016 Cervicalgia M54.2 [facility] [address] [place] [address] 12 Apr, 2016 Cervicalgia M54.2 [facility] [id number] [place] [address] 09 Mar, 2016 Generalized anxiety disorder F41.1 and Depressive disorder, not elsewhere classified F32.9 [facility] [address] [place] [address] [id number] 14 Feb, 2016 Visit for dental examination Z01.20 [facility] [address] [place] [address] 11 Feb, 2016 Pseudoseizures F44.5 ; Migraine without status migrainosus, not intractable, unspecified migraine type G43.909 and Essential hypertension I10 [facility] [address] [id number] 06 Feb, 2016 Dental examination Z01.20 [place] [facility] [id number] [place] [address] Feb, Generalized anxiety disorder F41.1 and Depressive disorder, not elsewhere classified F32.9 [place] [facility] [id number] [place] [address] Jan, Tachycardia R00.0 [place] [facility] [id number] [place] [address] December, Eustachian tube dysfunction, bilateral H69.83 [place] [facility] [id number] [place] [address] December, Generalized anxiety disorder F41.1 and Depressive disorder, not elsewhere classified F32.9 [place] [facility] [id number] [place] [address] Nov, [place] [id number] [place] [address] Nov, [place] [id number] [place] [address] Nov, Hypertension I10 ; Onychomycosis B35.1 ; [...] and Complex cyst of left ovary N83.29 [place] [address] [address] 14 Nov, 2015 Sinusitis J32.9 [place] [address] [address] Oct, Complex cyst of left ovary N83.29 [place] [address] [address] Oct, Onychomycosis B35.1 [facility] [address] [id number] 17 Oct, 2015 Dental examination Z01.20 [place] [address] [address] 09 Oct, 2015 Well woman exam Z01.419 [...] R92.2 and History of colon polyps Z86.010 [place] [address] [address] Oct, Generalized anxiety disorder F41.1 and Depressive disorder, not elsewhere classified F32.9 [place] [address] [address] Sep, Hypertension I10 and Onychomycosis B35.1 [place] [address] [address] Sep, Skin tags, multiple acquired L91.8 [place] [address] [address] Aug, [place] [address] [address] Aug, [facility] [id number] [place] [address] Aug, [facility] [id number] [place] [address] Aug, Generalized anxiety disorder F41.1 and Depressive disorder, not elsewhere classified F32.9 [facility] [id number] [place] [address] Jul, Skin lesion L98.9 [facility] [id number] [place] [address] Jun, Generalized anxiety disorder F41.1 and Depressive disorder, not elsewhere classified F32.9 [facility] [id number] [place] [address] Jun, [facility] [id number] [place] [address] Jun, Generalized anxiety disorder F41.1 [facility] [id number] [place] [address] May, Encounter for immunization Z23 and Right shoulder pain M25.511 [facility] [id number] [place] [address] Apr, [facility] [id number] [place] [address] Apr, Generalized anxiety disorder 300.02 and Depressive disorder, not elsewhere classified 311 [facility] [address] [place] [address] [id number] Mar, Dental examination V72.2 [facility] [address] [address] Mar, Generalized anxiety disorder 300.02 and Depressive disorder, not elsewhere classified 311 [facility] [id number] [place] [address] Mar, Depression, major, recurrent, 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.35 and 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 [facility] [address]65[address], [place] [address] Feb, Generalized anxiety disorder 300.02 and Depressive disorder, not elsewhere classified 311 [facility] [address] [id number] [id number] 07 Feb, 2015 Dental examination V72.2 [facility] [id number] [place] [address] 09 Jan, 2015 Generalized anxiety disorder 300.02 and Depressive disorder, not elsewhere classified 311 [facility] [address] [place] [address] Jan, [facility] [id number] [place] [address] December, Generalized anxiety disorder 300.02 and Depressive disorder, not elsewhere classified 311 [facility] [address] [place] [address] December, Major depressive disorder, recurrent, unspecified 296.30 and Panic disorder with agoraphobia 300.21 [facility] [address] [place] [address] Nov, [facility] [id number] [place] [address] Nov, [facility] [address], [place] [address] Oct, [facility] [address] [id number], [place] [address] Oct, [facility] [id number] [place] [address] Oct, [facility] [id number] [place] [address] Oct, [facility] [address], [place] [address] Sep, [facility] [place] [facility] [address] [id number] [place] [address] Sep, 2014 [facility] [place] [facility] [address] [id number] [place] [address] Sep, 2014 [facility] [place] [facility] [address] [id number] [place] [address] Sep, 2014 [facility] [place] [facility] [address] [id number] [place] [address] Sep, 2014 [facility] [place] [facility] [address] [id number] [place] [address] Sep, 2014 [facility] [place] [facility] [address] [id number] [place] [address] Sep, 2014 [facility] [place] [facility] [address] [facility] [id number] [place] [address] Sep, 2014 [facility] [place] [facility] [address] [id number] [place] [address] Sep, 2014 [facility] [place] [facility] [address] [id number] [place] [address] Sep, 2014 [facility] [place] [facility] [address] [facility] [id number] [place] [address] Aug, [facility] [place] [facility] [address] [id number] [place] [address] Aug, [facility] [place] [facility] [address] [id number] [place] [address] Jul, [facility] [place] [facility] [address] [id number] [place] [address] Jul, [facility] [place] [facility] [address] [id number] [place] [address] Jul, [facility] [place] [facility] [address] [facility] [id number] [place] [address] Jul, [facility] [place] [facility] [address] [id number] [place] [address] Jul, [facility] [place] [facility] [address] [id number] [place] [address] Jul, [facility] [place] [facility] [address] [id number] [place] [address] Jul, [facility] [place] [facility] [address] [id number] [place] [address] Jul, [facility] [place] [facility] [address] [id number] [place] [address] Jul, [facility] [place] [facility] [address] [id number] [place] [address] Jul, [facility] [place] [facility] [address] [id number] [place] [address] Jul, [facility] [place] [facility] [address] [id number] [place] [address] Jul, [facility] [place] [facility] [address] [id number] [place] [address] Jun, [facility] [place] [facility] [address] [id number] [place] [address] Jun, [facility] [place] [facility] [address] [id number] [place] [address] May, [facility] [place] [facility] [address] [id number] [place] [address] May, [facility] [place] [facility] [address] [id number], [place] [address] May, [facility] [place] [facility] [address] [id number] [place] [address] May, [facility] [place] [facility] [address] [id number] [place] [address] May, [facility] [place] [facility] [address] [id number], [place] [address] May, [facility] [place] [facility] [address] [id number] [place] [address] May, [facility] [place] [facility] [address] [id number] [place] [address] May, [facility] [place] [facility] [address] [id number] [place] [address] May, [facility] [place] [facility] [address] [id number] [place] [address] May, [facility] [place] [facility] [address] [id number] [place] [address] May, [facility] [place] [facility] [address] [id number] [place] [address] May, [facility] [place] [facility] [address] [id number] [place] [address] Apr, [facility] [place] [facility] [address] [id number] [place] [address] 30 Apr, 2014 [facility] [place] [facility] [address] [id number] [place] [address] Apr, [facility] [place] [facility] [address] [id number] [place] [address] Apr, [facility] [place] [facility] [address] [id number] [place] [address] Apr, [facility] [place] [facility] [address] [id number] [place] [address] Apr, [facility] [place] [facility] [address] [id number] [place] [address] Feb, [facility] [place] [facility] [address] [id number] [place] [address] Feb, [facility] [place] [facility] [address] [id number] [place] [address] Feb, [facility] [place] [facility] [address] [id number] [place] [address] Feb, [facility] [place] [facility] [address] [id number] [place] [address] Feb, [facility] [place] [facility] [address] [id number] [place] [address] Feb, [facility] [place] [facility] [address] [id number] [place] [address] Jan, [facility] [place] [facility] [address] [id number] [place] [address] Jan, [facility] [place] [facility] [address] [id number] [place] [address] Jan, [facility] [place] [facility] [address] [id number] [place] [address] Jan, [facility] [place] [facility] [address] [id number] [place] [address] Jan, [facility] [place] [facility] [address] [id number] [place] [address] Jan, [facility] [place] [facility] [address] [id number] [place] [address] Jan, [facility] [place] [facility] [address] [id number] [place] [address] Jan, [facility] [place] [facility] [address] [id number], [place] [address] December, [facility] [place] [facility] [address] [id number], [place] [address] December, [facility] [place] [facility] [address] [id number] [place] [address] December, [facility] [place] [facility] [address] [id number] [place] [address] December, [facility] [place] [facility] [address] [id number] [place] [address] Nov, [facility] [place] [facility] [address] [id number] [place] [address] Nov, [facility] [place] [facility] [address] [id number] [place] [address] Nov, [facility] [place] [facility] [address] [id number] [place] [address] Nov, [facility] [place] [facility] [address] [id number] [place] [address] Nov, [facility] [place] [facility] [address] [id number] [place] [address] Nov, [facility] [place] [facility] [address] [id number] [place] [address] Nov, [facility] [place] [facility] [address] [id number] [place] [address] Nov, [facility] [place] [facility] [address] [id number] [place] [address] Oct, [facility] [place] [facility] [address] [id number] [place] [address] Oct, [facility] [place] [facility] [address] [id number] [place] [address] Sep, [facility] [place] [facility] [address] [id number] [place] [address] Sep, [facility] [place] [facility] [address] [facility] [id number] [place] [id number] Sep, [facility] [place] [facility] [address] [id number] [place] [address] Sep, [facility] [place] [facility] [address] [id number] [place] [address] Sep, [facility] [place] [facility] [address] [id number] [place] [address] Sep, [facility] [place] [facility] [address] [facility] [id number] [place] [address] Aug, [facility] [place] [facility] [address] [id number] [place] [address] Aug, [facility] [place] [facility] [address] [id number] [place] [address] Aug, [facility] [place] [facility] [address] [id number] [place] [address] Aug, [facility] [place] [facility] [address] [id number] [place] [address] Jul, [facility] [place] [facility] [address] [id number] [place] [address] Jul, [facility] [place] [facility] [address] [id number] [place] [address] Jul, [facility] [place] [facility] [address] [id number] [place] [address] Jul, [facility] [place] [facility] [address] [id number] [place] [address] Jun, [facility] [place] [facility] [address] [id number] [place] [address] Jun, [facility] [place] [facility] [address] [id number] [place] [address] May, [facility] [place] [facility] [address] [id number] [place] [address] 24 May, 2013 [facility] [place] [facility] [address] [id number], [place] [address] May, [facility] [place] [facility] [address] [id number] [place] [address] May, [facility] [place] [facility] [address] [id number] [place] [address] 10 May, 2013 [facility] [place] [facility] [address] [id number] [place] [address] 17 Apr, 2013 [facility] [place] [facility] [address] [id number] [place] [address] Apr, [facility] [address] [id number] [place] [address] Mar, [facility] [place] [facility] [address] [id number] [place] [address] Mar, [facility] [address] [id number] [place] [address] Mar, [facility] [place] [facility] [address] [id number] [place] [address] Mar, [facility] [address] [id number] [place] [address] Feb, [facility] [place] [facility] [address] [id number] [place] [address] Feb, [facility] [address] [id number] [place] [address] Feb, [facility] [place] [facility] [address] [id number] [place] [address] Feb, [facility] [address] [id number] [place] [address] Feb, [facility] [place] [facility] [address] [id number] [place] [address] Jan, [facility] [place] [facility] [address] [id number] [place] [address] Jan, [facility] [place] [facility] [address] [id number] [place] [address] Jan, [facility] [place] [facility] [address] [id number] [place] [address] Jan, [facility] [place] [facility] [address] [id number] [place] [address] Jan, [facility] [place] [facility] [address] [id number] [place] [address] December, [facility] [place] [facility] [address] [id number] [place] [address] December, [facility] [address] [id number] [place] [address] Nov, [facility] [place] [facility] [address] [id number] [place] [address] Nov, [facility] [address] [id number] [place] [address] Oct, [facility] [address] [id number] [place] [address] Oct, [facility] [place] [facility] [address] [id number] [place] [address] 05 Oct, 2012 [facility] [address] [id number] [place] [address] 14 Sep, 2012 [facility] [address] [id number] [place] [address] 24 Aug, 2012 [facility] [address] [id number] [place] [address] Aug, [facility] [address] [id number] [place] [address] Aug, [facility] [address] [id number] [place] [address] Aug, [facility] [address] [id number] [place] [address] Jul, [facility] [place] [facility] [address] [id number] [place] [address] Jul, [facility] [place] [facility] [address] [id number] [place] [address] Jul, [facility] [place] [facility] [address] [id number] [place] [address] Jul, [facility] [place] [facility] [address] [id number] [place] [address] Jul, [facility] [place] [facility] [address] [id number] [place] [address] Jul, [facility] [place] [facility] [address] [id number] [place] [address] Jul, [facility] [place] [facility] [address] [facility] [id number] [place] [address] Jul, [facility] [place] [facility] [address] [id number], [place] [address] Jun, [facility] [place] [facility] [address] [id number] [place] [address] Jun, [facility] [place] [facility] [address] [facility] [id number], [place] [address] Jun, [facility] [place] [facility] [address] [facility] [id number], [place] [address] Jun, [facility] [place] [facility] [address] [id number], [place] [address] Jun, [facility] [place] [facility] [address] [id number], [place] [address] Jun, [facility] [place] [facility] [address] [facility] [id number], [place] [address] May, [facility] [place] [facility] [address] [id number], [place] [address] May, [facility] [place] [facility] [address] [id number], [place] [address] May, [facility] [place] [facility] [address] [id number], [place] [address] May, [facility] [place] [facility] [address] [facility] [id number], [place] [address] Apr, [facility] [place] [facility] [address] [facility] [id number], [place] [address] Apr, [facility] [place] [facility] [address] [id number] [place] [address] 08 Mar, 2012 [facility] [address] [id number] [place] [address] 28 Jan, 2012 [facility] [address] [id number] [place] [address] 20 Jan, 2012 [facility] [address] [id number] [place] [address] 16 Jan, 2012 [facility] [address] [id number] [place] [address] 15 Jan, 2012 [facility] [address] [id number] [place] [address] 14 Jan, 2012 [facility] [address] [id number] [place] [address] 14 Jan, 2012 [facility] [address] [id number] [place] [address] 07 Jan, 2012 [facility] [address] [id number] [place] [address] December, [facility] [address] [id number] [place] [address] December, [facility] [address] [id number] [place] [address] December, [facility] [address] [id number] [place] [address] December, [facility] [address] [id number] [place] [address] Nov, [facility] [place] [facility] [address] [id number] [place] [address] 05 Nov, 2011 [facility] [place] [facility] [address] [id number] [place] [address] 29 Oct, 2011 [facility] [address] [id number] [place] [address] Oct, [facility] [place] [facility] [address] [id number] [place] [address] 15 Oct, 2011 [facility] [place] [facility] [address] [id number] [place] [address] Sep, [facility] [place] [facility] [address] [id number] [place] [address] Sep, [facility] [place] [facility] [address] [id number] [place] [address] Sep, [facility] [place] [facility] [address] [id number] [place] [address] Aug, [facility] [place] [facility] [address] [id number] [place] [address] Aug, [facility] [place] [facility] [address] [id number] [place] [address] Aug, [facility] [place] [facility] [address] [id number] [place] [address] Aug, [facility] [place] [facility] [address] [id number] [place] [address] Aug, [facility] [place] [facility] [address] [id number] [place] [address] Aug, [facility] [place] [facility] [address] [id number] [place] [address] Aug, [facility] [place] [facility] [address] [id number] [place] [address] Jul, [facility] [place] [facility] [address] [id number] [place] [address] Jul, [facility] [place] [facility] [address] [id number] [place] [address] Jun, [facility] [place] [facility] [address] [id number] [place] [address] Jun, [facility] [place] [facility] [address] [id number] [place] [address] 17 Jun, 2011 [facility] [place] [facility] [address] [id number] [place] [address] 15 Jun, 2011 [facility] [place] [facility] [address] [id number] [place] [address] 14 Jun, 2011 [facility] [place] [facility] [address] [id number] [place] [address] 14 Jun, 2011 [facility] [place] [facility] [address] [id number] [place] [address] Jun, [facility] [place] [facility] [address] [id number] [place] [address] Jun, [facility] [place] [facility] [address] [id number] [place] [address] Jun, [facility] [place] [facility] [address] [id number] [place] [address] Jun, [facility] [place] [facility] [address] [id number] [place] [address] May, [facility] [place] [facility] [address] [id number] [place] [address] May, [facility] [place] [facility] [address] [id number] [place] [address] May, [facility] [place] [facility] [address] [id number] [place] [address] 24 May, 2011 [facility] [place] [facility] [address] [id number], [place] [address] May, [facility] [place] [facility] [address] [id number], [place] [address] May, [facility] [place] [facility] [address] [id number], [place] [address] Feb, [facility] [place] [facility] [address] [id number], [place] [address] December, [facility] [place] [facility] [address] [facility] [id number], [place] [address] Jul, [facility] [address] [facility] [id number], [place] [address] 29 Jul, 2010 [facility] [address] [facility] [id number], [place] [address] Jul, [facility] [address] [facility] [id number], [place] [address] Jul, [facility] [address] [facility] [id number], [place] [address] 15 Jun, 2010 [facility] [id number], [place] [address] Jul, [facility] [id number], [place] [address] Jul, [facility] [id number], [place] [address] Jul, [facility] [id number], [place] [address] Jul, [facility] [id number], [place] [address] Jul, [facility] [id number], [place] [address] Jul, [facility] [id number], [place] [address] Jan, [facility] [address] [id number], [place] [address] Sep, [facility] [address] [id number], [place] [address] Sep, IMMUNIZATIONS No Known Immunizations SOCIAL HISTORY Never Assessed REASON FOR VISIT recheck diverticulitis-Alvin NUNES PLAN OF CARE Activity Details Follow Up prn Reason: VITAL SIGNS Height 66 in 2017-08-04 Weight 178.3 lbs 2017-08-04 Temperature 98.0 degrees Fahrenheit 2017-08-04 Heart Rate 66 bpm 2017-08-04 Respiratory Rate 18 2017-08-04 BMI 28.78 kg/m2 2017-08-04 Blood pressure systolic 128 mmHg 2017-08-04 Blood pressure diastolic 68 mmHg 2017-08-04 MEDICATIONS Medication Instructions Dosage Frequency Start Date End Date Duration Status Zofran Active Hyoscyamine Sulfate 0.125 mg 1 tablet by Oral route 4 times per day PRN Jul, Not-Taking Fluconazole 150 MG Orally now and may repeat in 3 days 1 tablet May, Not-Taking Ibuprofen 600 MG Orally Three times a day 1 tablet with food or milk as needed 8h May, Not-Taking InnoPran XL 120 MG Orally Once a day 1 capsule at bedtime 24h 30 Active Clorazepate Dipotassium 7.5 MG Orally 4 times a day 1 tablet as needed 6h 30 days Active Hydrochlorothiazide 25 MG Orally Once a day as needed TAKE ONE 90 days Active Cephalexin 500 MG Orally every 6 hrs 1 capsule 6h Active Percocet 5-325 MG Orally every 6 hrs 1 tablet as needed 6h Not-Taking Harrison 7.5-325 MG Orally every 4-6 hours as needed 1 tablet Not-Taking InnoPran XL 80 MG Orally Once a day. Take along with 120mg 1 capsule at bedtime May, 30 Active Probiotic Active Bactroban Not-Taking Motrin Active Flagyl 500 MG Orally 4 times a day 1 tablet 6h Active Omeprazole 20 mg Orally Once a day, ac 1 capsule Mar, 30 day(s) Active RESULTS No Results PROCEDURES No Known [...]
--- OUTSIDE RECORDS SUMMARY | 2019-01-22 21:14 | XMS REPORT ---
Author Author JONNATHAN KELLY [facility] Address Unknown Care Team Providers Care Assembly Inspector Name Role Phone JONNATHAN KELLY Unavailable PROBLEMS Type Condition ICD9-CM Code HLY43-RZ Code Onset Dates Condition Status SNOMED Code Problem Family history of diabetes mellitus Z83.3 Active 946363231 Problem Hot flashes N95.1 Active 737230644 Problem Excessive and frequent menstruation with irregular cycle N92.1 Active 817967965 Problem Diverticulitis K57.92 Active 676833945 Problem Gastroesophageal reflux disease with esophagitis K21.0 Active 231006905 Problem Mitral valve prolapse I34.1 Active 615985705 Problem Perimenopausal N95.1 Active 262475479771921 Problem Tachycardia R00.0 Active 1117220 Problem Abnormal uterine bleeding (AUB) N93.9 Active 44958929962946 Problem History of diverticulitis Z87.19 Active 024000617782987 Problem History of colon polyps Z86.010 Active 335250427 Problem Generalized anxiety disorder F41.1 Active 213955045 Problem Dense breast tissue R92.2 Active 205359684 Problem Hypertension I10 Active 10426139 Problem History of ovarian cyst Z87.42 Active 90451619 ALLERGIES Substance Reaction Event Type Date Status Sulfamethoxazole-Trimethoprim anaphylaxis Drug Allergy May, Active Erythromycin rash Drug Allergy May, Active Hydrocodone vomiting Non Drug Allergy May, Active ENCOUNTERS Encounter Location Date Diagnosis [facility] [address] [facility] [id number], [place] [address] Jan, [facility] [address], [place] [address] Jan, [facility] [address] [id number], [place] [address] December, [facility] [address], [place] [address] December, Hypertension I10 [facility] [address] [id number], [place] [address] December, Generalized anxiety disorder F41.1 [facility] [address] [id number], [place] [address] 16 Oct, 2017 Encounter for dental examination Z01.20 [facility] [address] [id number], [place] [address] 06 Oct, 2017 Encounter for dental examination Z01.20 [facility] [address] [id number], [place] [address] 02 Oct, 2017 Dental examination Z01.20 [facility] [address] [id number], [place] [address] Oct, Generalized anxiety disorder F41.1 [facility] [address] [id number], [place] [address] Aug, Dental examination Z01.20 [facility] [address] [id number], [place] [address] Aug, Generalized anxiety disorder F41.1 [facility] [address] [facility] [id number] [place] [address] Aug, [facility] [address] [id number], [place] [address] Aug, Encounter for dental examination Z01.20 [facility] [address] [facility] [id number], [place] [address] Aug, Subacute maxillary sinusitis J01.00 [facility] [address] [id number], [place] [address] Jul, Dental examination Z01.20 [facility] [address] [facility] [id number], [place] [address] Jul, Generalized anxiety disorder F41.1 [facility] [id number] [place] [address] Jul, Diverticulitis K57.92 [facility] [id number] [place] [address] Jun, Encounter for immunization Z23 [facility] [address] [id number], [place] [address] Jun, Dental examination Z01.20 [facility] [id number] [place] [address] 14 Jun, 2017 Generalized anxiety disorder F41.1 [facility] [id number] [place] [address] 07 Jun, 2017 Dental examination Z01.20 [facility] [id number] [place] [address] May, [facility] [address] [id number] May, Dental examination Z01.20 [facility] [id number] [place] [id number] May, Dental examination Z01.20 [facility] [id number] [place] [address] May, Dental examination Z01.20 [facility] [address] [place] [address] May, [facility] [id number] [place] [address] May, Generalized anxiety disorder F41.1 [facility] [id number] [place] [address] May, Localized edema R60.0 ; Yeast vaginitis B37.3 and Gastroesophageal reflux disease with esophagitis K21.0 [facility] [address] [place] [id number] Apr, Dental examination Z01.20 [facility] [address] [id number], [place] [address] Apr, Dental examination Z01.20 [facility] [address] [id number], [place] [address] 05 Apr, 2017 Dental examination Z01.20 [facility] [id number] [place] [address] Mar, Dyspepsia R10.13 [facility] [id number] [place] [address] Mar, Generalized anxiety disorder F41.1 [facility] [address] [id number], [place] [address] Mar, Encounter for dental examination Z01.20 [facility] [id number] [place] [address] [id number] Mar, [facility] [id number] [place] [address] [id number] Mar, Dental examination Z01.20 [facility] [id number] [place] [address] Feb, Hypertension I10 and Tachycardia R00.0 [facility] [address] [id number], [place] [address] Feb, [facility] [address] [id number], [place] [address] Feb, Generalized anxiety disorder F41.1 [facility] [id number] [place] [id number] Feb, Dental examination Z01.20 [facility] [id number] [place] [address] Jan, Generalized anxiety disorder F41.1 [facility] [address] [facility] [id number] [place] [address] December, Generalized anxiety disorder F41.1 [facility] [id number] [place] [address] [id number] December, Encounter for dental examination Z01.20 [facility] [id number] [place] [address] Nov, [facility] [id number] [place] [address] Nov, [facility] [id number] [place] [address] Nov, Generalized anxiety disorder F41.1 [facility] [id number] [place] [address] Oct, [facility] [address] [id number] Oct, Dental examination Z01.20 [facility] [id number] [place] [address] Oct, Vaginal dryness N89.8 [facility] [id number] [place] [address] Oct, Pseudoseizures F44.5 [facility] [id number] [place] [address] Oct, Generalized anxiety disorder F41.1 [facility] [id number] [place] [address] 28 Sep, 2016 Abnormal uterine bleeding (AUB) N93.9 ; Vaginal dryness N89.8 and Screening breast examination Z12.39 [facility] [address] [place] [address] Sep, Dental examination Z01.20 [facility] [id number] [place] [address] Sep, Generalized anxiety disorder F41.1 [facility] [address] [place] [address] 06 Sep, 2016 Unspecified ovarian cyst, right side N83.201 ; Unspecified ovarian cyst, left side N83.202 ; Yeast infection of the vagina B37.3 ; Mitral valve prolapse I34.1 and Hypertension I10 [facility] [id number] [place] [address] 18 Aug, 2016 Generalized anxiety disorder F41.1 [facility] [id number] [place] [address] 28 Jul, 2016 [facility] [id number] [place] [address] Jul, Generalized anxiety disorder F41.1 [facility] [id number] [place] [address] Jun, Generalized anxiety disorder F41.1 [facility] [id number] [place] [address] 28 May, 2016 Encounter for immunization Z23 [facility] [id number] [place] [address] 17 May, 2016 Generalized anxiety disorder F41.1 and Depressive disorder, not elsewhere classified F32.9 [facility] [id number] [place] [address] 28 Apr, 2016 Hypertension I10 [facility] [id number] [place] [address] 22 Apr, 2016 Cervicalgia M54.2 [facility] [id number] [place] [address] Apr, Cervicalgia M54.2 [facility] [id number] [place] [address] 09 Mar, 2016 Generalized anxiety disorder F41.1 and Depressive disorder, not elsewhere classified F32.9 [facility] [address] [place] [id number] 14 Feb, 2016 Visit for dental examination Z01.20 [facility] [id number] [place] [address] 11 Feb, 2016 Pseudoseizures F44.5 ; Migraine without status migrainosus, not intractable, unspecified migraine type G43.909 and Essential hypertension I10 [facility] [id number] [place] [address] [id number] 06 Feb, 2016 Dental examination Z01.20 [facility] [id number] [place] [address] 05 Feb, 2016 Generalized anxiety disorder F41.1 and Depressive disorder, not elsewhere classified F32.9 [facility] [id number] [place] [address] 27 Jan, 2016 Tachycardia R00.0 [place] [address] [address] December, Eustachian tube dysfunction, bilateral H69.83 [facility] [address] [address] December, Generalized anxiety disorder F41.1 and Depressive disorder, not elsewhere classified F32.9 [facility] [id number] [place] [address] Nov, [facility] [address] [address] 28 Nov, 2015 [facility] [id number] [place] [address] 20 Nov, 2015 Hypertension I10 ; Onychomycosis [...] and Complex cyst of left ovary N83.29 [facility] [id number] [place] [address] 14 Nov, 2016 Sinusitis J32.9 [place] [id number] [place] [address] Oct, Complex cyst of left ovary N83.29 [place] [address] [address] Oct, Onychomycosis B35.1 [facility] [address] [id number] Oct, Dental examination Z01.20 [place] [address] [address] 09 Oct, 2015 Well woman exam Z01.419 [...] R92.2 and History of colon polyps Z86.010 [place] [address] [address] Oct, Generalized anxiety disorder F41.1 and Depressive disorder, not elsewhere classified F32.[address] [address] Sep, Hypertension I10 and Onychomycosis B35.1 [place] [id number] [place] [address] Sep, Skin tags, multiple acquired L91.[address] [address] Aug, [place] [address] [address] Aug, [place] [address] [address] Aug, [facility] [address] [place] [address] Aug, Generalized anxiety disorder F41.1 and Depressive disorder, not elsewhere classified F32.9 [facility] [id number] [place] [address] Jul, Skin lesion L98.9 [facility] [address] [address] Jun, Generalized anxiety disorder F41.1 and Depressive disorder, not elsewhere classified F32.9 [facility] [id number] [place] [address] Jun, [facility] [id number] [place] [address] Jun, Generalized anxiety disorder F41.1 [place] [address] [address] May, Encounter for immunization Z23 and Right shoulder pain M25.511 [facility] [id number] [place] [address] Apr, [facility] [id number] [place] [address] Apr, Generalized anxiety disorder 300.02 and Depressive disorder, not elsewhere classified 311 [facility] [id number] [place] [id number] Mar, Dental examination V72.2 [facility] [id number] [place] [address] Mar, Generalized anxiety disorder 300.02 and Depressive disorder, not elsewhere classified 311 [facility] [id number] [place] [address] Mar, Depression, major, recurrent, 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.35 and 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 [facility] [address] [address] Feb, Generalized anxiety disorder 300.02 and Depressive disorder, not elsewhere classified 311 [facility] [id number] [id number] 07 Feb, 2015 Dental examination V72.2 [facility] [address], [place] [address] 09 Jan, 2015 Generalized anxiety disorder 300.02 and Depressive disorder, not elsewhere classified 311 [facility] [id number] [place] [address] Jan, [facility] [address] [place] [address] December, Generalized anxiety disorder 300.02 and Depressive disorder, not elsewhere classified 311 [facility] [address] [place] [address] December, Major depressive disorder, recurrent, unspecified 296.30 and Panic disorder with agoraphobia 300.21 [facility] [address], [place] [address] Nov, [facility] [id number] [place] [address] Nov, [facility] [address] [place] [address] Oct, [facility] [address]100[place], [place] [address] Oct, [facility] [address]100[place], [place] [address] Oct, [facility] [address] [place] [address] Oct, [facility] [id number] [place] [address] Sep, [facility] [address], [place] [address] Sep, [facility] [place] [facility] [address] [id number] [place] [address] Sep, 2014 [facility] [place] [facility] [address] [id number] [place] [address] Sep, 2014 [facility] [place] [facility] [address] [id number] [place] [address] Sep, 2014 [facility] [place] [facility] [address] [id number] [place] [address] Sep, 2014 [facility] [place] [facility] [address] [id number] [place] [address] Sep, 2014 [facility] [place] [facility] [address] [id number] [place] [address] Sep, 2014 [facility] [place] [facility] [address] [id number] [place] [address] Sep, 2014 [facility] [place] [facility] [address] [id number] [place] [address] Sep, 2014 [facility] [place] [facility] [address] [id number] [place] [address] Aug, [facility] [place] [facility] [address] [facility] [id number] [place] [address] Aug, [facility] [place] [facility] [address] [id number] [place] [address] Jul, [facility] [place] [facility] [address] [id number] [place] [address] Jul, [facility] [place] [facility] [address] [id number] [place] [address] 18 Jul, 2014 [facility] [place] [facility] [address] [id number] [place] [address] Jul, [facility] [place] [facility] [address] [id number] [place] [address] Jul, [facility] [place] [facility] [address] [id number] [place] [address] Jul, [facility] [place] [facility] [address] [id number] [place] [address] Jul, [facility] [place] [facility] [address] [id number] [place] [address] Jul, [facility] [place] [facility] [address] [id number] [place] [address] Jul, [facility] [place] [facility] [address] [id number] [place] [address] Jul, [facility] [place] [facility] [address] [id number] [place] [address] Jul, [facility] [place] [facility] [address] [id number] [place] [address] Jul, [facility] [place] [facility] [address] [id number] [place] [address] Jun, [facility] [place] [facility] [address] [id number] [place] [address] Jun, [facility] [place] [facility] [address] [id number] [place] [address] May, [facility] [place] [facility] [address] [id number] [place] [address] May, [facility] [place] [facility] [address] [id number] [place] [address] May, [facility] [place] [facility] [address] [id number], [place] [address] May, [facility] [place] [facility] [address] [id number] [place] [address] May, [facility] [place] [facility] [address] [id number] [place] [address] May, [facility] [place] [facility] [address] [id number], [place] [address] May, [facility] [place] [facility] [address] [id number] [place] [address] May, [facility] [place] [facility] [address] [id number] [place] [address] May, [facility] [place] [facility] [address] [id number] [place] [address] May, [facility] [place] [facility] [address] [id number] [place] [address] May, [facility] [place] [facility] [address] [id number] [place] [address] May, [facility] [place] [facility] [address] [id number] [place] [address] Apr, [facility] [place] [facility] [address] [id number] [place] [address] 30 Apr, 2014 [facility] [place] [facility] [address] [id number] [place] [address] Apr, [facility] [place] [facility] [address] [id number] [place] [address] Apr, [facility] [place] [facility] [address] [id number] [place] [address] Apr, [facility] [place] [facility] [address] [id number] [place] [address] Apr, [facility] [place] [facility] [address] [id number] [place] [address] Feb, [facility] [place] [facility] [address] [id number] [place] [address] Feb, [facility] [place] [facility] [address] [id number] [place] [address] Feb, [facility] [place] [facility] [address] [id number] [place] [address] Feb, [facility] [place] [facility] [address] [id number] [place] [address] Feb, [facility] [place] [facility] [address] [id number] [place] [address] Feb, [facility] [place] [facility] [address] [id number] [place] [address] Jan, [facility] [place] [facility] [address] [id number] [place] [address] Jan, [facility] [place] [facility] [address] [id number] [place] [address] Jan, [facility] [place] [facility] [address] [id number] [place] [address] Jan, [facility] [place] [facility] [address] [id number] [place] [address] Jan, [facility] [place] [facility] [address] [id number] [place] [address] Jan, [facility] [place] [facility] [address] [id number] [place] [address] Jan, [facility] [place] [facility] [address] [id number] [place] [address] Jan, [facility] [place] [facility] [address] [id number] [place] [address] December, [facility] [place] [facility] [address] [id number], [place] [address] December, [facility] [place] [facility] [address] [id number], [place] [address] December, [facility] [place] [facility] [address] [id number] [place] [address] December, [facility] [place] [facility] [address] [id number] [place] [address] Nov, [facility] [place] [facility] [address] [id number] [place] [address] Nov, [facility] [place] [facility] [address] [id number] [place] [address] Nov, [facility] [place] [facility] [address] [id number] [place] [address] Nov, [facility] [place] [facility] [address] [id number] [place] [address] Nov, [facility] [place] [facility] [address] [id number] [place] [address] Nov, [facility] [place] [facility] [address] [id number] [place] [address] Nov, [facility] [place] [facility] [address] [id number] [place] [address] Nov, [facility] [place] [facility] [address] [id number] [place] [address] Oct, [facility] [place] [facility] [address] [id number] [place] [address] Oct, [facility] [place] [facility] [address] [id number] [place] [address] Sep, [facility] [place] [facility] [address] [id number] [place] [address] Sep, [facility] [address] [facility] [id number] [place] [id number] Sep, [facility] [place] [facility] [address] [id number] [place] [address] Sep, [facility] [place] [facility] [address] [id number] [place] [address] Sep, [facility] [place] [facility] [address] [id number] [place] [address] Sep, [facility] [place] [facility] [address] [id number] [place] [address] Aug, [facility] [place] [facility] [address] [id number] [place] [address] Aug, [facility] [place] [facility] [address] [id number] [place] [address] Aug, [facility] [place] [facility] [address] [id number] [place] [address] Aug, [facility] [place] [facility] [address] [id number] [place] [address] Jul, [facility] [place] [facility] [address] [id number] [place] [address] Jul, [facility] [place] [facility] [address] [id number] [place] [address] Jul, [facility] [place] [facility] [address] [id number] [place] [address] Jul, [facility] [place] [facility] [address] [id number] [place] [address] Jun, [facility] [place] [facility] [address] [id number] [place] [address] Jun, [facility] [place] [facility] [address] [id number] [place] [address] May, [facility] [place] [facility] [address] [id number] [place] [address] May, [facility] [place] [facility] [address] [id number] [place] [address] May, [facility] [place] [facility] [address] [id number], [place] [address] 11 May, 2013 [facility] [place] [facility] [address] [id number] [place] [address] 10 May, 2013 [facility] [place] [facility] [address] [id number] [place] [address] 17 Apr, 2013 [facility] [place] [facility] [address] [id number] [place] [address] 10 Apr, 2013 [facility] [place] [facility] [address] [id number] [place] [address] Mar, [facility] [address] [id number] [place] [address] Mar, [facility] [place] [facility] [address] [id number] [place] [address] Mar, [facility] [address] [id number] [place] [address] Mar, [facility] [place] [facility] [address] [id number] [place] [address] Feb, [facility] [address] [id number] [place] [address] Feb, [facility] [address] [id number] [place] [address] Feb, [facility] [address] [id number] [place] [address] Feb, [facility] [address] [id number] [place] [address] Feb, [facility] [address] [id number] [place] [address] Jan, [facility] [place] [facility] [address] [id number] [place] [address] Jan, [facility] [place] [facility] [address] [id number] [place] [address] Jan, [facility] [place] [facility] [address] [id number] [place] [address] Jan, [facility] [place] [facility] [address] [id number] [place] [address] Jan, [facility] [place] [facility] [address] [id number] [place] [address] December, [facility] [place] [facility] [address] [id number] [place] [address] December, [facility] [place] [facility] [address] [id number] [place] [address] 17 Nov, 2012 [facility] [address] [id number] [place] [address] 02 Nov, 2012 [facility] [place] [facility] [address] [id number] [place] [address] 19 Oct, 2012 [facility] [place] [facility] [address] [id number] [place] [address] 13 Oct, 2012 [facility] [place] [facility] [address] [id number] [place] [address] 05 Oct, 2012 [facility] [place] [facility] [address] [id number] [place] [address] 14 Sep, 2012 [facility] [address] [id number] [place] [address] 24 Aug, 2012 [facility] [address] [id number] [place] [address] 16 Aug, 2012 [facility] [address] [id number] [place] [address] 15 Aug, 2012 [facility] [address] [id number] [place] [address] Aug, [facility] [address] [id number] [place] [address] Jul, [facility] [place] [facility] [address] [id number] [place] [address] Jul, [facility] [place] [facility] [address] [id number] [place] [address] Jul, [facility] [place] [facility] [address] [id number] [place] [address] Jul, [facility] [place] [facility] [address] [id number] [place] [address] 06 Jul, 2012 [facility] [place] [facility] [address] [id number] [place] [address] Jul, [facility] [place] [facility] [address] [id number] [place] [address] Jul, [facility] [place] [facility] [address] [id number] [place] [address] Jul, [facility] [place] [facility] [address] [facility] [id number] [place] [address] Jun, [facility] [place] [facility] [address] [id number] [place] [address] Jun, [facility] [place] [facility] [address] [id number] [place] [address] Jun, [facility] [place] [facility] [address] [facility] [id number] [place] [address] Jun, [facility] [place] [facility] [address] [facility] [id number] [place] [address] Jun, [facility] [place] [facility] [address] [id number], [place] [address] Jun, [facility] [place] [facility] [address] [id number], [place] [address] May, [facility] [place] [facility] [address] [id number], [place] [address] May, [facility] [place] [facility] [address] [id number], [place] [address] May, [facility] [place] [facility] [address] [id number], [place] [address] May, [facility] [place] [facility] [address] [id number] [place] [address] Apr, [facility] [place] [facility] [address] [facility] [id number], [place] [address] Apr, [facility] [place] [facility] [address] [facility] [id number], [place] [address] Mar, [facility] [place] [facility] [address] [id number] [place] [address] 28 Jan, 2012 [facility] [address] [id number] [place] [address] 20 Jan, 2012 [facility] [place] [facility] [address] [id number] [place] [address] 16 Jan, 2012 [facility] [address] [id number] [place] [address] 15 Jan, 2012 [facility] [address] [id number] [place] [address] 14 Jan, 2012 [facility] [address] [id number] [place] [address] 14 Jan, 2012 [facility] [address] [id number] [place] [address] 07 Jan, 2012 [facility] [address] [id number] [place] [address] December, [facility] [address] [id number] [place] [address] 10 Dec, 2011 [facility] [address] [id number] [place] [address] December, [facility] [address] [id number] [place] [address] 02 Dec, 2011 [facility] [address] [id number] [place] [address] 25 Nov, 2011 [facility] [place] [facility] [address] [id number] [place] [address] 05 Nov, 2011 [facility] [place] [facility] [address] [id number] [place] [address] 29 Oct, 2011 [facility] [place] [facility] [address] [id number] [place] [address] 28 Oct, 2011 [facility] [place] [facility] [address] [id number] [place] [address] 15 Oct, 2011 [facility] [place] [facility] [address] [id number] [place] [address] Sep, [facility] [place] [facility] [address] [id number] [place] [address] Sep, [facility] [place] [facility] [address] [id number] [place] [address] Sep, [facility] [place] [facility] [address] [id number] [place] [address] Aug, [facility] [place] [facility] [address] [id number] [place] [address] Aug, [facility] [place] [facility] [address] [id number] [place] [address] Aug, [facility] [place] [facility] [address] [id number] [place] [address] Aug, [facility] [place] [facility] [address] [id number] [place] [address] Aug, [facility] [place] [facility] [address] [id number] [place] [address] Aug, [facility] [place] [facility] [address] [id number] [place] [address] Aug, [facility] [place] [facility] [address] [id number] [place] [address] Jul, [facility] [place] [facility] [address] [id number] [place] [address] Jul, [facility] [place] [facility] [address] [id number] [place] [address] Jun, [facility] [place] [facility] [address] [id number] [place] [address] Jun, [facility] [place] [facility] [address] [id number] [place] [address] Jun, [facility] [place] [facility] [address] [id number] [place] [address] 15 Jun, 2011 [facility] [place] [facility] [address] [id number] [place] [address] 14 Jun, 2011 [facility] [place] [facility] [address] [id number] [place] [address] 14 Jun, 2011 [facility] [place] [facility] [address] [id number] [place] [address] 07 Jun, 2011 [facility] [place] [facility] [address] [id number] [place] [address] 07 Jun, 2011 [facility] [place] [facility] [address] [id number] [place] [address], [place] [address] Jun, [facility] [place] [facility] [address] [id number] [place] [address] Jun, [facility] [place] [facility] [address] [id number] [place] [address] May, [facility] [place] [facility] [address] [id number] [place] [address] May, [facility] [place] [facility] [address] [id number] [place] [address] May, [facility] [place] [facility] [address] [id number] [place] [address] 24 May, 2011 [facility] [place] [facility] [address] [id number] [place] [address] 18 May, 2011 [facility] [place] [facility] [address] [id number], [place] [address] May, [facility] [place] [facility] [address] [id number] [place] [address] Feb, [facility] [place] [facility] [address] [id number] [place] [address] December, [facility] [place] [facility] [address] [id number], [place] [address] Jul, [facility] [place] [facility] [address] [facility] [id number], [place] [address] 29 Jul, 2010 [facility] [id number], [place] [address] 22 Jul, 2010 [facility] [address] [facility] [id number], [place] [address] Jul, [facility] [id number], [place] [address] 15 Jun, 2010 [facility] [address] [facility] [id number], [place] [address] Jul, [facility] [id number] [place] [address] Jul, [facility] [id number], [place] [address] Jul, [facility] [id number] [place] [address] Jul, [facility] [id number], [place] [address] Jul, [facility] [id number], [place] [address] Jul, [facility] [id number], [place] [address] Jan, [facility] [id number], [place] [address] 16 Sep, 2008 [facility] [address] [id number], [place] [address] Sep, IMMUNIZATIONS No Known Immunizations SOCIAL HISTORY Never Assessed REASON FOR VISIT bry PLAN OF CARE Activity Details Follow Up prn Reason:FADUMO VITAL SIGNS Height 66 in 2017-06-20 Blood pressure systolic 128 mmHg 2017-06-20 Blood pressure diastolic 74 mmHg 2017-06-20 MEDICATIONS Medication Instructions Dosage Frequency Start Date End Date Duration Status Clorazepate Dipotassium 7.5 MG Orally 4 times a day 1 tablet as needed 6h 30 days Active InnoPran XL 120 MG Orally Once a day 1 capsule at bedtime 24h 30 Active Bactroban Active InnoPran XL 80 MG Orally Once a day. Take along with 120mg 1 capsule at bedtime May, 30 Active Hydrochlorothiazide 25 MG Orally Once a day as needed TAKE ONE 90 days Active Omeprazole 20 mg Orally Once a day, ac 1 capsule 15 Mar, 2017 30 day(s) Active RESULTS No Results PROCEDURES Procedure Date Ordered Result Body Site LTD ORAL EVALUATION - PROBLEM FOCUS Jun 20, 2017 Billing Notes on claim Jun 20, 2017 INSTRUCTIONS MEDICATIONS ADMINISTERED No Known [...]
[2019-01-22] MEDS ORDERED: fentaNYL INJECTION 100 MCG/2 ML AMP IVP ONE (21:15)
[2019-01-22] MEDS ORDERED: LACTATED RINGERS 1,000 ML IV SCH (21:15)
[2019-01-22] MEDS ORDERED: ONDANSETRON 4 MG/2 ML (SDV) Z0FRAN IVP ONE (21:15)
--- OUTSIDE RECORDS SUMMARY | 2019-01-22 21:15 | XMS REPORT ---
Author Author ENMA CHU Organization [facility] Address [address] [address] Care Team Providers Care Library Director Name Role Phone ENMA CHU Unavailable PROBLEMS Type Condition ICD9-CM Code [id number] Code Onset Dates Condition Status SNOMED Code Problem Family history of diabetes mellitus Z83.3 Active 468847691 Problem Hot flashes N95.1 Active 749947332 Problem Excessive and frequent menstruation with irregular cycle N92.1 Active 755741685 Problem Diverticulitis K57.92 Active 345572383 Problem Gastroesophageal reflux disease with esophagitis K21.0 Active 165970300 Problem Mitral valve prolapse I34.1 Active 005929458 Problem Perimenopausal N95.1 Active 861606586759797 Problem Tachycardia R00.0 Active 4470497 Problem Abnormal uterine bleeding (AUB) N93.9 Active 82043602984284 Problem History of diverticulitis Z87.19 Active 078468930527352 Problem History of colon polyps Z86.010 Active 779484499 Problem Generalized anxiety disorder F41.1 Active 245987665 Problem Dense breast tissue R92.2 Active 524351156 Problem Hypertension I10 Active 96883503 Problem History of ovarian cyst Z87.42 Active 05257786 ALLERGIES Substance Reaction Event Type Date Status Sulfamethoxazole-Trimethoprim anaphylaxis Drug Allergy Jul, Active Erythromycin rash Drug Allergy Jul, Active Hydrocodone vomiting Non Drug Allergy Jul, Active ENCOUNTERS Encounter Location Date Diagnosis [facility] [address] [facility] [id number] [address] Feb, [facility] [address] [id number] [address] Jan, Hypertension I10 and Acute non-recurrent maxillary sinusitis J01.00 [facility] [address] [id number] [address] December, [facility] [address] [facility] [place] [facility] [id number] [place] [address] December, Hypertension I10 [facility] [address] [facility] [place] [id number] [place] [address] December, Generalized anxiety disorder F41.1 [facility] [address] [id number], [place] [address] 16 Oct, 2017 Encounter for dental examination Z01.20 [facility] [id number] [place] [address] Oct, Encounter for dental examination Z01.20 [facility] [address] [id number] [place] [address] Oct, Dental examination Z01.20 [facility] [id number] [place] [address] Oct, Generalized anxiety disorder F41.1 [facility] [id number] [place] [address] Aug, Dental examination Z01.20 [facility] [id number] [place] [address] Aug, Generalized anxiety disorder F41.1 [facility] [address] [id number] [address] Aug, [facility] [address] [id number], [place] [address] Aug, Encounter for dental examination Z01.20 [facility] [id number] [place] [address] Aug, Subacute maxillary sinusitis J01.00 [facility] [address] [id number], [place] [address] Jul, Dental examination Z01.20 [facility] [id number] [place] [address] Jul, Generalized anxiety disorder F41.1 [facility] [address] [address] Jul, Diverticulitis K57.92 [facility] [address] [address] 28 Jun, 2017 Encounter for immunization Z23 [facility] [id number] [place] [address] 22 Jun, 2017 Dental examination Z01.20 [facility] [address] [place] [address] 14 Jun, 2017 Generalized anxiety disorder F41.1 [facility] [address] [id number], [place] [address] 07 Jun, 2017 Dental examination Z01.20 [facility] [id number] [place] [address] May, [facility] [id number] [place] [id number] May, Dental examination Z01.20 [facility] [id number] [place] [id number] May, Dental examination Z01.20 [facility] [address] [id number], [place] [address] May, Dental examination Z01.20 [facility] [address] [address] May, [facility] [id number] [place] [address] May, Generalized anxiety disorder F41.1 [facility] [address] [place] [address] 05 May, 2017 Localized edema R60.0 ; Yeast vaginitis B37.3 and Gastroesophageal reflux disease with esophagitis K21.0 [facility] [address] [id number] Apr, Dental examination Z01.20 [facility] [address] [id number], [place] [address] Apr, Dental examination Z01.20 [facility] [address] [id number], [place] [address] 05 Apr, 2017 Dental examination Z01.20 [facility] [id number] [place] [address] Mar, Dyspepsia R10.13 [facility] [id number] [place] [address] Mar, Generalized anxiety disorder F41.1 [facility] [id number] [place] [address] Mar, Encounter for dental examination Z01.20 [facility] [id number] [place] [id number] Mar, [facility] [id number] [place] [id number] Mar, Dental examination Z01.20 [facility] [id number] [place] [address] Feb, Hypertension I10 and Tachycardia R00.0 [facility] [id number], [place] [address] Feb, [facility] [id number] [place] [address] Feb, Generalized anxiety disorder F41.1 [facility] [address] [place] [id number] Feb, Dental examination Z01.20 [facility] [id number] [place] [address] Jan, Generalized anxiety disorder F41.1 [facility] [id number] [place] [address] December, Generalized anxiety disorder F41.1 [facility] [id number] [place] [phone] December, Encounter for dental examination Z01.20 [facility] [id number] [place] [address] Nov, [facility] [id number] [place] [address] Nov, [facility] [id number] [place] [address] Nov, Generalized anxiety disorder F41.1 [facility] [id number] [place] [address] Oct, [facility] [id number] [place] [id number] Oct, Dental examination Z01.20 [facility] [id number] [place] [address] Oct, Vaginal dryness N89.8 [facility] [id number] [place] [address] Oct, Pseudoseizures F44.5 [facility] [id number] [place] [address] Oct, Generalized anxiety disorder F41.1 [facility] [id number] [place] [address] Sep, Abnormal uterine bleeding (AUB) N93.9 ; Vaginal dryness N89.8 and Screening breast examination Z12.39 [facility] [id number] [place] [address] Sep, Dental examination Z01.20 [facility] [id number] [place] [address] Sep, Generalized anxiety disorder F41.1 [facility] [id number] [place] [address] Sep, Unspecified ovarian cyst, right side N83.201 ; Unspecified ovarian cyst, left side N83.202 ; Yeast infection of the vagina B37.3 ; Mitral valve prolapse I34.1 and Hypertension I10 [facility] [address] [place] [address] Aug, Generalized anxiety disorder F41.1 [facility] [id number] [place] [address] Jul, [facility] [id number] [place] [address] Jul, Generalized anxiety disorder F41.1 [place] [id number] [place] [address] Jun, Generalized anxiety disorder F41.1 [place] [id number] [place] [address] May, Encounter for immunization Z23 [facility] [id number] [place] [address] 17 May, 2016 Generalized anxiety disorder F41.1 and Depressive disorder, not elsewhere classified F32.9 [facility] [id number] [place] [address] 28 Apr, 2016 Hypertension I10 [place] [id number] [place] [address] 22 Apr, 2016 Cervicalgia M54.2 [facility] [address] [place] [address] 12 Apr, 2016 Cervicalgia M54.2 [facility] [id number] [place] [address] 09 Mar, 2016 Generalized anxiety disorder F41.1 and Depressive disorder, not elsewhere classified F32.9 [facility] [address] [place] [id number] 14 Feb, 2016 Visit for dental examination Z01.20 [address] [place] [address] [place] [address] 11 Feb, 2016 Pseudoseizures F44.5 ; Migraine without status migrainosus, not intractable, unspecified migraine type G43.909 and Essential hypertension I10 [facility] [address] [id number] 06 Feb, 2016 Dental examination Z01.20 [place] [id number] [place] [address] 05 Feb, 2016 Generalized anxiety disorder F41.1 and Depressive disorder, not elsewhere classified F32.9 [place] [id number] [place] [address] Jan, Tachycardia R00.0 [place] [id number] [place] [address] December, Eustachian tube dysfunction, bilateral H69.83 [place] [id number] [place] [address] December, Generalized anxiety disorder F41.1 and Depressive disorder, not elsewhere classified F32.9 [address] [place] [address] [address] Nov, [place] [id number] [place] [address] Nov, [place] [id number] [place] [address] Nov, Hypertension I10 ; Onychomycosis B35.1 ; [...] and Complex cyst of left ovary N83.29 [address] [address] [address] 14 Nov, 2015 Sinusitis J32.9 [address] [address] [address] Oct, Complex cyst of left ovary N83.29 [address] [place] [address] [address] Oct, Onychomycosis B35.1 [facility] [address] [id number] 17 Oct, 2015 Dental examination Z01.20 [address] [place] [address] [address] 09 Oct, 2015 Well woman exam Z01.419 [...] R92.2 and History of colon polyps Z86.010 [address] [place] [address] [address] Oct, Generalized anxiety disorder F41.1 and Depressive disorder, not elsewhere classified F32.9 [address] [place] [address] [address] Sep, Hypertension I10 and Onychomycosis B35.1 [address] [place] [address] [address] Sep, Skin tags, multiple acquired L91.8 [address] [place] [address] [address] Aug, [place] [address] [address] Aug, [facility] [address] [place] [address] Aug, [facility] [id number] [place] [address] Aug, Generalized anxiety disorder F41.1 and Depressive disorder, not elsewhere classified F32.9 [facility] [id number] [place] [address] Jul, Skin lesion L98.9 [facility] [id number] [place] [address] Jun, Generalized anxiety disorder F41.1 and Depressive disorder, not elsewhere classified F32.9 [facility] [id number] [place] [address] Jun, [facility] [id number] [place] [address] Jun, Generalized anxiety disorder F41.1 [facility] [id number] [place] [address] May, Encounter for immunization Z23 and Right shoulder pain M25.511 [facility] [address] [place] [address] Apr, [facility] [id number] [place] [address] Apr, Generalized anxiety disorder 300.02 and Depressive disorder, not elsewhere classified 311 [facility] [address] [place] [phone] Mar, Dental examination V72.2 [facility] [id number] [place] [address] Mar, Generalized anxiety disorder 300.02 and Depressive disorder, not elsewhere classified 311 [facility] [address] [place] [address] Mar, Depression, major, recurrent, 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.35 and 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 [facility] [address] [address] Feb, Generalized anxiety disorder 300.02 and Depressive disorder, not elsewhere classified 311 [facility] [address] [id number] [id number] 07 Feb, 2015 Dental examination V72.2 [facility] [id number] [place] [address] Jan, Generalized anxiety disorder 300.02 and Depressive disorder, not elsewhere classified 311 [facility] [address] [place] [address] Jan, [facility] [id number] [place] [address] December, Generalized anxiety disorder 300.02 and Depressive disorder, not elsewhere classified 311 [facility] [address] [place] [address] December, Major depressive disorder, recurrent, unspecified 296.30 and Panic disorder with agoraphobia 300.21 [facility] [address] [address] Nov, [facility] [address] [address] Nov, [facility] [address] [address] Oct, [facility] [address] [address] Oct, [facility] [address] [place] [address] Oct, [facility] [id number] [place] [address] Oct, [facility] [address] [address] Sep, [facility] [place] [facility] [address] [id number] [place] [address] Sep, 2014 [facility] [place] [facility] [address] [id number] [place] [address] Sep, 2014 [facility] [place] [facility] [address] [id number] [place] [address] Sep, 2014 [facility] [place] [facility] [address] [id number] [place] [address] Sep, 2014 [facility] [place] [facility] [address] [id number] [place] [address] Sep, 2014 [facility] [place] [facility] [address] [id number] [place] [address] Sep, 2014 [facility] [place] [facility] [address] [facility] [id number] [place] [address] Sep, 2014 [facility] [place] [facility] [address] [id number] [place] [address] Sep, 2014 [facility] [place] [facility] [address] [id number] [place] [address] Sep, 2014 [facility] [place] [facility] [address] [facility] [id number] [place] [address] Aug, [facility] [place] [facility] [address] [id number] [place] [address] Aug, [facility] [place] [facility] [address] [id number] [place] [address] Jul, [facility] [place] [facility] [address] [id number] [place] [address] Jul, [facility] [place] [facility] [address] [id number] [place] [address] Jul, [facility] [place] [facility] [address] [id number] [place] [address] Jul, [facility] [place] [facility] [address] [id number] [place] [address] Jul, [facility] [place] [facility] [address] [id number] [place] [address] Jul, [facility] [place] [facility] [address] [id number] [place] [address] Jul, [facility] [place] [facility] [address] [id number] [place] [address] Jul, [facility] [place] [facility] [address] [id number] [place] [address] Jul, [facility] [place] [facility] [address] [id number] [place] [address] Jul, [facility] [place] [facility] [address] [id number] [place] [address] Jul, [facility] [place] [facility] [address] [id number] [place] [address] Jul, [facility] [place] [facility] [address] [id number] [place] [address] Jun, [facility] [place] [facility] [address] [id number] [place] [address] Jun, [facility] [place] [facility] [address] [facility] [id number] [place] [address] May, [facility] [place] [facility] [address] [id number] [place] [address] May, [facility] [place] [facility] [address] [id number] [place] [address] May, [facility] [place] [facility] [address] [id number] [place] [address] May, [facility] [place] [facility] [address] [id number] [place] [address] May, [facility] [place] [facility] [address] [id number] [place] [address] May, [facility] [place] [facility] [address] [id number] [place] [address] May, [facility] [place] [facility] [address] [id number] [place] [address] May, [facility] [place] [facility] [address] [id number] [place] [address] May, [facility] [place] [facility] [address] [id number] [place] [address] May, [facility] [place] [facility] [address] [id number] [place] [address] May, [facility] [place] [facility] [address] [id number] [place] [address] May, [facility] [place] [facility] [address] [id number] [place] [address] Apr, [facility] [place] [facility] [address] [id number] [place] [address] 30 Apr, 2014 [facility] [place] [facility] [address] [id number] [place] [address] Apr, [facility] [place] [facility] [address] [id number] [place] [address] Apr, [facility] [place] [facility] [address] [id number] [place] [address] Apr, [facility] [place] [facility] [address] [id number] [place] [address] Apr, [facility] [place] [facility] [address] [id number] [place] [address] Feb, [facility] [place] [facility] [address] [id number] [place] [address] Feb, [facility] [place] [facility] [address] [id number] [place] [address] Feb, [facility] [place] [facility] [address] [id number] [place] [address] Feb, [facility] [place] [facility] [address] [id number] [place] [address] Feb, [facility] [place] [facility] [address] [id number] [place] [address] Feb, [facility] [place] [facility] [address] [id number] [place] [address] Jan, [facility] [place] [facility] [address] [id number] [place] [address] Jan, [facility] [place] [facility] [address] [id number] [place] [address] Jan, [facility] [place] [facility] [address] [id number] [place] [address] Jan, [facility] [place] [facility] [address] [id number] [place] [address] Jan, [facility] [place] [facility] [address] [id number] [place] [address] Jan, [facility] [place] [facility] [address] [id number] [place] [address] Jan, [facility] [place] [facility] [address] [id number] [place] [address] Jan, [facility] [place] [facility] [address] [id number] [place] [address] December, [facility] [place] [facility] [address] [id number] [place] [address] December, [facility] [place] [facility] [address] [id number] [place] [address] December, [facility] [place] [facility] [address] [id number] [place] [address] December, [facility] [place] [facility] [address] [id number] [place] [address] Nov, [facility] [place] [facility] [address] [id number] [place] [address] Nov, [facility] [address] [id number] [place] [address] Nov, [facility] [place] [facility] [address] [id number] [place] [address] Nov, [facility] [address] [id number] [place] [address] Nov, [facility] [place] [facility] [address] [id number] [place] [address] Nov, [facility] [address] [id number] [place] [address] Nov, [facility] [place] [facility] [address] [id number] [place] [address] Nov, [facility] [address] [id number] [place] [address] Oct, [facility] [address] [id number] [place] [address] Oct, [facility] [place] [facility] [address] [id number] [place] [address] Sep, [facility] [address] [id number] [place] [address] Sep, [facility] [address] [facility] [id number] [place] [id number] Sep, [facility] [place] [facility] [address] [id number] [place] [address] Sep, [facility] [place] [facility] [address] [id number] [place] [address] Sep, [facility] [place] [facility] [address] [id number] [place] [address] Sep, [facility] [place] [facility] [address] [id number] [place] [address] Aug, [facility] [place] [facility] [address] [id number] [place] [address] Aug, [facility] [place] [facility] [address] [id number] [place] [address] Aug, [facility] [place] [facility] [address] [id number] [place] [address] Aug, [facility] [place] [facility] [address] [id number] [place] [address] Jul, [facility] [place] [facility] [address] [id number] [place] [address] Jul, [facility] [place] [facility] [address] [id number] [place] [address] Jul, [facility] [place] [facility] [address] [id number] [place] [address] Jul, [facility] [place] [facility] [address] [id number] [place] [address] Jun, [facility] [place] [facility] [address] [id number] [place] [address] Jun, [facility] [place] [facility] [address] [id number] [place] [address] May, [facility] [place] [facility] [address] [id number] [place] [address] 24 May, 2013 [facility] [place] [facility] [address] [id number] [address] May, [facility] [place] [facility] [address] [id number] [place] [address] May, [facility] [place] [facility] [address] [id number] [place] [address] 10 May, 2013 [facility] [place] [facility] [address] [id number] [place] [address] 17 Apr, 2013 [facility] [place] [facility] [address] [id number] [place] [address] 10 Apr, 2013 [facility] [address] [id number] [place] [address] Mar, [facility] [place] [facility] [address] [id number] [place] [address] Mar, [facility] [place] [facility] [address] [id number] [place] [address] Mar, [facility] [place] [facility] [address] [id number] [place] [address] Mar, [facility] [place] [facility] [address] [id number] [place] [address] Feb, [facility] [place] [facility] [address] [id number] [place] [address] Feb, [facility] [place] [facility] [address] [id number] [place] [address] Feb, [facility] [place] [facility] [address] [id number] [place] [address] Feb, [facility] [place] [facility] [address] [id number] [place] [address] Feb, [facility] [place] [facility] [address] [id number] [place] [address] Jan, [facility] [place] [facility] [address] [id number] [place] [address] Jan, [facility] [place] [facility] [address] [id number] [place] [address] Jan, [facility] [place] [facility] [address] [id number] [place] [address] Jan, [facility] [place] [facility] [address] [id number] [place] [address] Jan, [facility] [place] [facility] [address] [id number] [place] [address] December, [facility] [place] [facility] [address] [id number] [place] [address] December, [facility] [address] [id number] [place] [address] Nov, [facility] [address] [id number] [place] [address] Nov, [facility] [address] [id number] [place] [address] Oct, [facility] [address] [id number] [place] [address] Oct, [facility] [address] [id number] [place] [address] Oct, [facility] [address] [id number] [place] [address] Sep, [facility] [address] [id number] [place] [address] Aug, [facility] [address] [id number] [place] [address] Aug, [facility] [address] [id number] [place] [address] Aug, [facility] [address] [id number] [place] [address] Aug, [facility] [address] [id number] [place] [address] Jul, [facility] [address] [id number] [place] [address] Jul, [facility] [place] [facility] [address] [id number] [place] [address] Jul, [facility] [address] [id number] [place] [address] Jul, [facility] [address] [id number] [place] [address] Jul, [facility] [place] [facility] [address] [id number] [place] [address] Jul, [facility] [place] [facility] [address] [id number] [place] [address] Jul, [facility] [place] [facility] [address] [facility] [place] [id number] [place] [address] Jul, [facility] [place] [facility] [address] [id number] [place] [address] Jun, [facility] [place] [facility] [address] [id number] [place] [address] Jun, [facility] [place] [facility] [address] [facility] [place] [id number] [place] [address] Jun, [facility] [place] [facility] [address] [facility] [place] [id number] [place] [address] Jun, [facility] [place] [facility] [address] [id number] [place] [address] Jun, [facility] [place] [facility] [address] [id number] [place] [address] Jun, [facility] [place] [facility] [address] [facility] [place] [id number] [place] [address] May, [facility] [place] [facility] [address] [id number] [place] [address] May, [facility] [place] [facility] [address] [id number] [place] [address] May, [facility] [place] [facility] [address] [id number] [place] [address] May, [facility] [place] [facility] [address] [facility] [place] [id number] [place] [address] Apr, [facility] [place] [facility] [address] [facility] [place] [id number] [place] [address] Apr, [facility] [place] [facility] [address] [id number] [place] [address] 08 Mar, 2012 [facility] [address] [id number] [place] [address] 28 Jan, 2012 [facility] [place] [facility] [address] [id number] [place] [address] 20 Jan, 2012 [facility] [address] [id number] [place] [address] 16 Jan, 2012 [facility] [address] [id number] [place] [address] 15 Jan, 2012 [facility] [address] [id number] [place] [address] 14 Jan, 2012 [facility] [address] [id number] [place] [address] 14 Jan, 2012 [facility] [address] [id number] [place] [address] 07 Jan, 2012 [facility] [address] [id number] [place] [address] December, [facility] [address] [id number] [place] [address] December, [facility] [address] [id number] [place] [address] December, [facility] [place] [facility] [address] [id number] [place] [address] December, [facility] [address] [id number] [place] [address] Nov, [facility] [place] [facility] [address] [id number] [place] [address] 05 Nov, 2011 [facility] [place] [facility] [address] [id number] [place] [address] 29 Oct, 2011 [facility] [place] [facility] [address] [id number] [place] [address] Oct, [facility] [address] [id number] [place] [address] Oct, [facility] [place] [facility] [address] [id number] [place] [address] Sep, [facility] [address] [id number] [place] [address] Sep, [facility] [place] [facility] [address] [id number] [place] [address] Sep, [facility] [address] [id number] [place] [address] Aug, [facility] [place] [facility] [address] [id number] [place] [address] Aug, [facility] [address] [id number] [place] [address] Aug, [facility] [address] [id number] [place] [address] Aug, [facility] [place] [facility] [address] [id number] [place] [address] Aug, [facility] [address] [id number] [place] [address] Aug, [facility] [place] [facility] [address] [id number] [place] [address] Aug, [facility] [place] [facility] [address] [id number] [place] [address] Jul, [facility] [place] [facility] [address] [id number] [place] [address] Jul, [facility] [place] [facility] [address] [id number] [place] [address] Jun, [facility] [place] [facility] [address] [id number] [place] [address] Jun, [facility] [place] [facility] [address] [id number] [place] [address] 17 Jun, 2011 [facility] [place] [facility] [address] [id number] [place] [address] 15 Jun, 2011 [facility] [place] [facility] [address] [id number] [place] [address] 14 Jun, 2011 [facility] [place] [facility] [address] [id number] [place] [address] 14 Jun, 2011 [facility] [place] [facility] [address] [id number] [place] [address] Jun, [facility] [place] [facility] [address] [id number] [place] [address] Jun, [facility] [place] [facility] [address] [id number] [place] [address] Jun, [facility] [place] [facility] [address] [id number] [place] [address] Jun, [facility] [place] [facility] [address] [id number] [place] [address] May, [facility] [place] [facility] [address] [id number] [place] [address] May, [facility] [place] [facility] [address] [facility] [id number] [place] [address] May, [facility] [place] [facility] [address] [id number] [place] [address] 24 May, 2011 [facility] [place] [facility] [address] [id number] [place] [address] 18 May, 2011 [facility] [place] [facility] [address] [id number] [place] [address] May, [facility] [place] [facility] [address] [id number] [place] [address] Feb, [facility] [place] [facility] [address] [facility] [id number] [place] [address] December, [facility] [place] [facility] [address] [facility] [place] [id number] [place] [address] Jul, [facility] [id number] [address] Jul, [facility] [id number] [address] Jul, [facility] [id number] [place] [address] Jul, [facility] [address] [facility] [id number] [place] [address] Jun, [facility] [id number] [place] [address] Jul, [facility] [id number] [place] [address] Jul, [facility] [id number] [place] [address] Jul, [facility] [id number] [address] Jul, [facility] [id number] [place] [address] Jul, [facility] [id number] [address] Jul, [facility] [id number] [address] Jan, [facility] [address] [id number] [address] 16 Sep, 2008 [facility] [id number] [address] Sep, IMMUNIZATIONS No Known Immunizations SOCIAL HISTORY Never Assessed REASON FOR VISIT Restorative/ seat crown PLAN OF CARE Activity Details Follow Up Restorative #27, 28, 30, preliminary impression-Dr. Chu 90mins Reason: VITAL SIGNS Height 66 in 2017-08-15 Heart Rate 67 bpm 2017-08-15 Blood pressure systolic 143 mmHg 2017-08-15 Blood pressure diastolic 85 mmHg 2017-08-15 MEDICATIONS Medication Instructions Dosage Frequency Start Date End Date Duration Status InnoPran XL 80 MG Orally Once a day. Take along with 120mg 1 capsule at bedtime 30 Active Fluconazole 150 MG Orally now and may repeat in 3 days 1 tablet May, Not-Taking Zofran Active Flagyl 500 MG Orally 4 times a day 1 tablet 6h Active Bactroban Not-Taking Hydrochlorothiazide 25 MG Orally Once a day as needed TAKE ONE 90 days Active Percocet 5-325 MG Orally every 6 hrs 1 tablet as needed 6h Not-Taking Ibuprofen 600 MG Orally Three times a day 1 tablet with food or milk as needed 8h May, Not-Taking Azithromycin Active [place] 7.5-325 MG Orally every 4-6 hours as needed 1 tablet Not-Taking Hyoscyamine Sulfate 0.125 mg 1 tablet by Oral route 4 times per day PRN Jul, Not-Taking Omeprazole 20 MG TAKE ONE CAPSULE BY MOUTH ONCE DAILY BEFORE MEALS Jun, 30 Active Probiotic Active Clorazepate Dipotassium 7.5 MG Orally 4 times a day 1 tablet as needed 6h 30 days Active Motrin Active Cephalexin 500 MG Orally every 6 hrs 1 capsule 6h Active RESULTS No Results PROCEDURES Procedure Date Ordered Result Body Site RESIN COMPOS - ONE SURFACE ANTERIOR Aug 15, 2017 RESIN COMPOS - 1 SURFACE POSTERIOR Aug 15, 2017 Billing Notes on claim Aug 15, 2017 RECEMENT CROWN Aug 15, 2017 INSTRUCTIONS MEDICATIONS ADMINISTERED No Known Medications [...]
--- OUTSIDE RECORDS SUMMARY | 2019-01-22 21:16 | XMS REPORT ---
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 Name Role Phone ENMA SAMSON Unavailable PROBLEMS Type Condition ICD9-CM Code [id number] Code Onset Dates Condition Status SNOMED Code Problem Family history of diabetes mellitus Z83.3 Active 982296398 Problem Hot flashes N95.1 Active 207852639 Problem Excessive and frequent menstruation with irregular cycle N92.1 Active 444807216 Problem Diverticulitis K57.92 Active 592388190 Problem Gastroesophageal reflux disease with esophagitis K21.0 Active 739749254 Problem Mitral valve prolapse I34.1 Active 041760788 Problem Perimenopausal N95.1 Active 618339085820288 Problem Tachycardia R00.0 Active 9951231 Problem Abnormal uterine bleeding (AUB) N93.9 Active 86822166294376 Problem History of diverticulitis Z87.19 Active 694191560577021 Problem History of colon polyps Z86.010 Active 601993276 Problem Generalized anxiety disorder F41.1 Active 488489452 Problem Dense breast tissue R92.2 Active 324205670 Problem Hypertension I10 Active 32509409 Problem History of ovarian cyst Z87.42 Active 27043523 ALLERGIES Substance Reaction Event Type Date Status Sulfamethoxazole-Trimethoprim anaphylaxis Drug Allergy Apr, Active Erythromycin rash Drug Allergy Apr, Active Hydrocodone vomiting Non Drug Allergy Apr, Active ENCOUNTERS Encounter Location Date Diagnosis [facility] [address] [facility] [id number] [address] Jan, [facility] [address] [id number] [address] Jan, [facility] [address] [facility] [id number] [address] December, Generalized anxiety disorder F41.1 [facility] [address] [id number], [place] [address] 16 Oct, 2017 Encounter for dental examination Z01.20 [facility] [address] [id number], [place] [address] 06 Oct, 2017 Encounter for dental examination Z01.20 [facility] [address] [id number], [place] [address] 02 Oct, 2017 Dental examination Z01.20 [facility] [id number] [place] [address] Oct, Generalized anxiety disorder F41.1 [facility] [address] [id number], [place] [address] Aug, Dental examination Z01.20 [facility] [id number] [place] [address] Aug, Generalized anxiety disorder F41.1 [facility] [id number] [place] [address] Aug, [facility] [id number] [place] [address] 09 Aug, 2017 Encounter for dental examination Z01.20 [facility] [id number] [place] [address] Aug, Subacute maxillary sinusitis J01.00 [facility] [address] [id number], [place] [address] Jul, Dental examination Z01.20 [facility] [address] [facility] [id number] [place] [address] 19 Jul, 2017 Generalized anxiety disorder F41.1 [facility] [id number] [place] [address] 11 Jul, 2017 Diverticulitis K57.92 [facility] [id number] [place] [address] Jun, Encounter for immunization Z23 [facility] [address] [id number], [place] [address] Jun, Dental examination Z01.20 [facility] [id number] [place] [address] 14 Jun, 2017 Generalized anxiety disorder F41.1 [facility] [id number] [place] [address] 07 Jun, 2017 Dental examination Z01.20 [facility] [address] [id number] [place] [address] May, [facility] [address] [id number] [place] [id number] May, Dental examination Z01.20 [facility] [address] [id number] [place] [address] [id number] May, Dental examination Z01.20 [facility] [address] [id number], [place] [address] May, Dental examination Z01.20 [facility] [id number] [place] [address] May, [facility] [id number] [place] [address] May, Generalized anxiety disorder F41.1 [facility] [id number] [place] [address] May, Localized edema R60.0 ; Yeast vaginitis B37.3 and Gastroesophageal reflux disease with esophagitis K21.0 [facility] [address] [id number] [place] [id number] Apr, Dental examination Z01.20 [facility] [address] [id number], [place] [address] Apr, Dental examination Z01.20 [facility] [id number] [place] [address] 05 Apr, 2017 Dental examination Z01.20 [facility] [address] [id number] [address] Mar, Dyspepsia R10.13 [facility] [address] [id number] [address] Mar, Generalized anxiety disorder F41.1 [facility] [address] [id number], [place] [address] Mar, Encounter for dental examination Z01.20 [facility] [address] [id number] [place] [id number] Mar, [facility] [id number] [place] [id number] Mar, Dental examination Z01.20 [facility] [id number] [place] [address] Feb, Hypertension I10 and Tachycardia R00.0 [facility] [address] [id number], [place] [address] Feb, [facility] [id number] [place] [address] Feb, Generalized anxiety disorder F41.1 [facility] [address]005[address] [address] Feb, Dental examination Z01.20 [facility] [address] [id number] [address] Jan, Generalized anxiety disorder F41.1 [facility] [address] [id number] [address] December, Generalized anxiety disorder F41.1 [facility] [address]00565[address] [id number] December, Encounter for dental examination Z01.20 [facility] [address] [id number] [address] Nov, [facility] [id number] [place] [address] Nov, [facility] [id number] [place] [address] Nov, Generalized anxiety disorder F41.1 [facility] [id number] [place] [address] Oct, [facility] [id number] [place] [address] [id number] Oct, Dental examination Z01.20 [place] [id number] [place] [address] Oct, Vaginal dryness N89.8 [place] [id number] [place] [address] Oct, Pseudoseizures F44.5 [place] [id number] [place] [address] Oct, Generalized anxiety disorder F41.1 [facility] [id number] [place] [address] 28 Sep, 2016 Abnormal uterine bleeding (AUB) N93.9 ; Vaginal dryness N89.8 and Screening breast examination Z12.39 [address] [id number] [place] [address] Sep, Dental examination Z01.20 [place] [id number] [place] [address] Sep, Generalized anxiety disorder F41.1 [place] [id number] [place] [address] 06 Sep, 2016 Unspecified ovarian cyst, right side N83.201 ; Unspecified ovarian cyst, left side N83.202 ; Yeast infection of the vagina B37.3 ; Mitral valve prolapse I34.1 and Hypertension I10 [facility] [id number] [place] [address] Aug, Generalized anxiety disorder F41.1 [facility] [id number] [place] [address] Jul, [facility] [id number] [place] [address] Jul, Generalized anxiety disorder F41.1 [facility] [address] [address] Jun, Generalized anxiety disorder F41.1 [facility] [address] [address] May, Encounter for immunization Z23 [facility] [address] [address] 17 May, 2016 Generalized anxiety disorder F41.1 and Depressive disorder, not elsewhere classified F32.9 [facility] [address] [address] Apr, Hypertension I10 [facility] [id number] [place] [address] 22 Apr, 2016 Cervicalgia M54.2 [facility] [id number] [place] [address] 12 Apr, 2016 Cervicalgia M54.2 [facility] [id number] [place] [address] 09 Mar, 2016 Generalized anxiety disorder F41.1 and Depressive disorder, not elsewhere classified F32.9 [facility] [id number] [place] [id number] 14 Feb, 2016 Visit for dental examination Z01.20 [facility] [address] [address] 11 Feb, 2016 Pseudoseizures F44.5 ; Migraine without status migrainosus, not intractable, unspecified migraine type G43.909 and Essential hypertension I10 [facility] [id number] [place] [address] [id number] Feb, Dental examination Z01.20 [place] [address] [place] [address] Feb, Generalized anxiety disorder F41.1 and Depressive disorder, not elsewhere classified F32.9 [place] [id number] [place] [address] Jan, Tachycardia R00.0 [place] [id number] [place] [address] December, Eustachian tube dysfunction, bilateral H69.83 [place] [id number] [place] [address] December, Generalized anxiety disorder F41.1 and Depressive disorder, not elsewhere classified F32.9 [place] [id number] [place] [address] Nov, [place] [id number] [place] [address] Nov, [address] [id number] [place] [address] Nov, Hypertension I10 ; Onychomycosis B35.1 ; [...] and Complex cyst of left ovary N83.29 [place] [id number] [place] [address] 14 Nov, 2015 Sinusitis J32.9 [place] [address] [place] [address] Oct, Complex cyst of left ovary N83.29 [place] [address] [place] [address] Oct, Onychomycosis B35.1 [facility] [address] [place] [address] [id number] 17 Oct, 2015 Dental examination Z01.20 [place] [address] [place] [address] 09 Oct, 2015 Well woman exam Z01.419 [...] R92.2 and History of colon polyps Z86.010 [place] [id number] [place] [address] Oct, Generalized anxiety disorder F41.1 and Depressive disorder, not elsewhere classified F32.9 [place] [id number] [place] [address] Sep, Hypertension I10 and Onychomycosis B35.1 [place] [id number] [place] [address] 16 Sep, 2015 Skin tags, multiple acquired L91.8 [place] [id number] [place] [address] Aug, [place] [id number] [place] [address] Aug, [place] [id number] [place] [address] Aug, [place] [id number] [place] [address] Aug, Generalized anxiety disorder F41.1 and Depressive disorder, not elsewhere classified F32.9 [facility] [id number] [place] [address] Jul, Skin lesion L98.9 [facility] [id number] [place] [address] Jun, Generalized anxiety disorder F41.1 and Depressive disorder, not elsewhere classified F32.9 [facility] [address] [address] Jun, [address] [address] [address] Jun, Generalized anxiety disorder F41.1 [place] [address] [address] May, Encounter for immunization Z23 and Right shoulder pain M25.511 [place] [address] [address] Apr, [facility] [address] [address] 14 Apr, 2015 Generalized anxiety disorder 300.02 and Depressive disorder, not elsewhere classified 311 [facility] [id number] [place] [address] [id number] Mar, Dental examination V72.2 [place] [id number] [place] [address] Mar, Generalized anxiety disorder 300.02 and Depressive disorder, not elsewhere classified 311 [facility] [id number] [place] [address] Mar, Depression, major, recurrent, 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.35 and 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 [facility] [id number] [place] [address] Feb, Generalized anxiety disorder 300.02 and Depressive disorder, not elsewhere classified 311 [facility] [address] [id number] Feb, Dental examination V72.2 [facility] [address] [address] Jan, Generalized anxiety disorder 300.02 and Depressive disorder, not elsewhere classified 311 [facility] [address] [id number] [address] Jan, [facility] [id number] [place] [address] December, Generalized anxiety disorder 300.02 and Depressive disorder, not elsewhere classified 311 [facility] [id number] [place] [address] December, Major depressive disorder, recurrent, unspecified 296.30 and Panic disorder with agoraphobia 300.21 [facility] [id number] [place] [address] Nov, [facility] [id number] [place] [address] Nov, [facility] [id number] [place] [address] Oct, [facility] [id number] [place] [address] Oct, [facility] [address] [address] Oct, [facility] [id number] [place] [address] Oct, [facility] [address] [id number] [address] Sep, [facility] [id number] [place] [address] Sep, [facility] [address] [address] Sep, [facility] [id number] [place] [address] Sep, 2014 [facility] [place] [facility] [address] [id number] [place] [address] Sep, 2014 [facility] [place] [facility] [address] [id number] [place] [address] Sep, 2014 [facility] [place] [facility] [address] [id number] [place] [address] Sep, 2014 [facility] [place] [facility] [address] [id number] [place] [address] Sep, 2014 [facility] [place] [facility] [address] [id number] [place] [address] Sep, 2014 [facility] [place] [facility] [address] [facility] [id number] [place] [address] Sep, 2014 [facility] [place] [facility] [address] [facility] [id number] [place] [address] Aug, [facility] [place] [facility] [address] [id number] [place] [address] Aug, [facility] [place] [facility] [address] [facility] [id number] [place] [address] Jul, [facility] [place] [facility] [address] [facility] [id number] [place] [address] Jul, [facility] [place] [facility] [address] [facility] [id number] [place] [address] 18 Jul, 2014 [facility] [place] [facility] [address] [facility] [id number] [place] [address] 18 Jul, 2014 [facility] [place] [facility] [address] [id number] [place] [address] Jul, [facility] [place] [facility] [address] [facility] [id number] [place] [address] Jul, [facility] [place] [facility] [address] [facility] [id number] [place] [address] Jul, [facility] [place] [facility] [address] [id number] [place] [address] Jul, [facility] [place] [facility] [address] [id number] [place] [address] Jul, [facility] [place] [facility] [address] [id number] [place] [address] Jul, [facility] [place] [facility] [address] [id number] [place] [address] Jul, [facility] [place] [facility] [address] [id number] [place] [address] Jul, [facility] [place] [facility] [address] [id number] [place] [address] Jun, [facility] [place] [facility] [address] [id number] [place] [address] Jun, [facility] [place] [facility] [address] [id number] [place] [address] May, [facility] [place] [facility] [address] [id number] [place] [address] May, [facility] [place] [facility] [address] [id number] [place] [address] May, [facility] [place] [facility] [address] [id number] [place] [address] May, [facility] [place] [facility] [address] [id number] [place] [address] May, [facility] [place] [facility] [address] [id number] [place] [address] May, [facility] [place] [facility] [address] [id number] [place] [address] May, [facility] [place] [facility] [address] [id number] [place] [address] May, [facility] [place] [facility] [address] [id number] [place] [address] May, [facility] [place] [facility] [address] [id number] [place] [address] May, [facility] [place] [facility] [address] [id number] [place] [address] May, [facility] [place] [facility] [address] [id number] [place] [address] May, [facility] [place] [facility] [address] [id number] [place] [address] Apr, [facility] [place] [facility] [address] [id number] [place] [address] Apr, [facility] [place] [facility] [address] [id number] [place] [address] Apr, [facility] [place] [facility] [address] [id number] [place] [address] Apr, [facility] [place] [facility] [address] [id number] [place] [address] Apr, [facility] [place] [facility] [address] [id number] [place] [address] Apr, [facility] [place] [facility] [address] [id number] [place] [address] Feb, [facility] [place] [facility] [address] [id number] [place] [address] Feb, [facility] [place] [facility] [address] [id number] [place] [address] Feb, [facility] [place] [facility] [address] [id number] [place] [address] Feb, [facility] [place] [facility] [address] [id number] [place] [address] Feb, [facility] [place] [facility] [address] [id number] [place] [address] Feb, [facility] [place] [facility] [address] [id number] [place] [address] Jan, [facility] [place] [facility] [address] [id number] [place] [address] Jan, [facility] [place] [facility] [address] [id number] [place] [address] Jan, [facility] [place] [facility] [address] [id number] [place] [address] Jan, [facility] [place] [facility] [address] [id number] [place] [address] Jan, [facility] [place] [facility] [address] [id number] [place] [address] Jan, [facility] [place] [facility] [address] [id number] [place] [address] Jan, [facility] [place] [facility] [address] [id number] [place] [address] Jan, [facility] [place] [facility] [address] [id number] [place] [address] December, [facility] [place] [facility] [address] [id number] [place] [address] December, [facility] [place] [facility] [address] [id number] [place] [address] December, [facility] [place] [facility] [address] [id number] [place] [address] December, [facility] [place] [facility] [address] [id number] [place] [address] Nov, [facility] [place] [facility] [address] [id number] [place] [address] Nov, [facility] [place] [facility] [address] [id number] [place] [address] Nov, [facility] [place] [facility] [address] [id number] [place] [address] Nov, [facility] [place] [facility] [address] [id number] [place] [address] Nov, [facility] [place] [facility] [address] [id number] [place] [address] Nov, [facility] [place] [facility] [address] [id number] [place] [address] Nov, [facility] [place] [facility] [address] [id number] [place] [address] Nov, [facility] [place] [facility] [address] [id number] [place] [address] Oct, [facility] [place] [facility] [address] [id number] [place] [address] Oct, [facility] [place] [facility] [address] [id number] [place] [address] Sep, [facility] [place] [facility] [address] [id number] [place] [address] Sep, [facility] [place] [facility] [address] [id number] [place] [id number] Sep, [facility] [place] [facility] [address] [id number] [place] [address] Sep, [facility] [place] [facility] [address] [id number] [place] [address] Sep, [facility] [place] [facility] [address] [id number] [address] Sep, [facility] [place] [facility] [address] [id number] [place] [address] Aug, [facility] [place] [facility] [address] [id number] [place] [address] Aug, [facility] [place] [facility] [address] [id number] [place] [address] Aug, [facility] [place] [facility] [address] [id number] [place] [address] Aug, [facility] [place] [facility] [address] [id number] [place] [address] Jul, [facility] [place] [facility] [address] [id number] [place] [address] Jul, [facility] [place] [facility] [address] [id number] [place] [address] Jul, [facility] [place] [facility] [address] [id number] [place] [address] Jul, [facility] [place] [facility] [address] [id number] [place] [address] Jun, [facility] [place] [facility] [address] [id number] [place] [address] Jun, [facility] [place] [facility] [address] [id number] [place] [address] May, [facility] [place] [facility] [address] [id number] [place] [address] May, [facility] [place] [facility] [address] [id number] [place] [address] May, [facility] [place] [facility] [address] [id number] [place] [address] May, [facility] [place] [facility] [address] [id number] [place] [address] May, [facility] [place] [facility] [address] [id number] [place] [address] 17 Apr, 2013 [facility] [place] [facility] [address] [id number] [place] [address] Apr, [facility] [place] [facility] [address] [id number] [place] [address] Mar, [facility] [place] [facility] [address] [id number] [place] [address] Mar, [facility] [place] [facility] [address] [id number] [place] [address] Mar, [facility] [address] [id number] [place] [address] Mar, [facility] [address] [id number] [place] [address] Feb, [facility] [address] [id number] [place] [address] Feb, [facility] [address] [id number] [place] [address] Feb, [facility] [address] [id number] [place] [address] Feb, [facility] [address] [id number] [place] [address] Feb, [facility] [address] [id number] [place] [address] Jan, [facility] [address] [id number] [place] [address] Jan, [facility] [address] [id number] [place] [address] Jan, [facility] [address] [id number] [place] [address] Jan, [facility] [place] [facility] [address] [id number] [place] [address] Jan, [facility] [address] [id number] [place] [address] December, [facility] [place] [facility] [address] [id number] [place] [address] December, [facility] [place] [facility] [address] [id number] [place] [address] Nov, [facility] [place] [facility] [address] [id number] [place] [address] Nov, [facility] [address] [id number] [place] [address] Oct, [facility] [place] [facility] [address] [id number] [place] [address] Oct, [facility] [address] [id number] [place] [address] 05 Oct, 2012 [facility] [address] [id number] [place] [address] 14 Sep, 2012 [facility] [address] [id number] [place] [address] 24 Aug, 2012 [facility] [address] [id number] [place] [address] 16 Aug, 2012 [facility] [address] [id number] [place] [address] Aug, [facility] [address] [id number] [place] [address] Aug, [facility] [address] [id number] [place] [address] Jul, [facility] [address] [id number] [place] [address] Jul, [facility] [address] [id number] [place] [address] Jul, [facility] [place] [facility] [address] [id number] [place] [address] Jul, [facility] [place] [facility] [address] [id number] [place] [address] Jul, [facility] [place] [facility] [address] [id number] [place] [address] Jul, [facility] [place] [facility] [address] [id number] [place] [address] Jul, [facility] [place] [facility] [address] [id number] [place] [address] Jul, [facility] [place] [facility] [address] [id number] [place] [address] Jun, [facility] [place] [facility] [address] [id number] [place] [address] Jun, [facility] [place] [facility] [address] [id number] [place] [address] Jun, [facility] [place] [facility] [address] [id number] [place] [address] Jun, [facility] [place] [facility] [address] [id number] [place] [address] Jun, [facility] [place] [facility] [address] [facility] [id number] [place] [address] Jun, [facility] [place] [facility] [address] [id number] [place] [address] May, [facility] [place] [facility] [address] [id number] [place] [address] May, [facility] [place] [facility] [address] [id number] [place] [address] May, [facility] [place] [facility] [address] [id number] [place] [address] May, [facility] [place] [facility] [address] [id number] [place] [address] Apr, [facility] [place] [facility] [address] [id number] [place] [address] Apr, [facility] [place] [facility] [address] [id number] [place] [address] Mar, [facility] [place] [facility] [address] [id number] [place] [address] Jan, [facility] [place] [facility] [address] [id number] [place] [address] Jan, [facility] [place] [facility] [address] [id number] [place] [address] 16 Jan, 2012 [facility] [place] [facility] [address] [id number] [place] [address] 15 Jan, 2012 [facility] [place] [facility] [address] [id number] [place] [address] 14 Jan, 2012 [facility] [place] [facility] [address] [id number] [place] [address] 14 Jan, 2012 [facility] [place] [facility] [address] [id number] [place] [address] 07 Jan, 2012 [facility] [place] [facility] [address] [id number] [place] [address] December, [facility] [place] [facility] [address] [id number] [place] [address] December, [facility] [place] [facility] [address] [id number] [place] [address] December, [facility] [place] [facility] [address] [id number] [place] [address] December, [facility] [place] [facility] [address] [id number] [place] [address] Nov, [facility] [place] [facility] [address] [id number] [place] [address] 05 Nov, 2011 [facility] [place] [facility] [address] [id number] [place] [address] 29 Oct, 2011 [facility] [place] [facility] [address] [id number] [place] [address] 28 Oct, 2011 [facility] [place] [facility] [address] [id number] [place] [address] 15 Oct, 2011 [facility] [place] [facility] [address] [id number] [place] [address] Sep, [facility] [place] [facility] [address] [id number] [place] [address] 09 Sep, 2011 [facility] [address] [id number] [place] [address] Sep, [facility] [place] [facility] [address] [id number] [place] [address] Aug, [facility] [place] [facility] [address] [id number] [place] [address] Aug, [facility] [place] [facility] [address] [id number] [place] [address] Aug, [facility] [place] [facility] [address] [id number] [place] [address] Aug, [facility] [place] [facility] [address] [id number] [place] [address] Aug, [facility] [address] [id number] [place] [address] Aug, [facility] [place] [facility] [address] [id number] [place] [address] Aug, [facility] [place] [facility] [address] [id number] [place] [address] Jul, [facility] [place] [facility] [address] [id number] [place] [address] Jul, [facility] [place] [facility] [address] [id number] [place] [address] 30 Jun, 2011 [facility] [place] [facility] [address] [id number] [place] [address] 28 Jun, 2011 [facility] [place] [facility] [address] [id number] [place] [address] 17 Jun, 2011 [facility] [place] [facility] [address] [id number] [place] [address] 15 Jun, 2011 [facility] [place] [facility] [address] [id number] [place] [address] 14 Jun, 2011 [facility] [place] [facility] [address] [id number] [place] [address] 14 Jun, 2011 [facility] [place] [facility] [address] [id number] [place] [address] 07 Jun, 2011 [facility] [place] [facility] [address] [id number] [place] [address] Jun, [facility] [place] [facility] [address] [id number] [place] [address], [place] [address] Jun, [facility] [place] [facility] [address] [id number] [place] [address] Jun, [facility] [place] [facility] [address] [id number] [place] [address] May, [facility] [place] [facility] [address] [id number] [place] [address] May, [facility] [place] [facility] [address] [id number] [place] [address] May, [facility] [place] [facility] [address] [id number] [place] [address] 24 May, 2011 [facility] [place] [facility] [address] [id number] [place] [address] May, [facility] [place] [facility] [address] [id number] [place] [address] May, [facility] [place] [facility] [address] [id number] [place] [address] Feb, [facility] [place] [facility] [address] [id number] [place] [address] December, [facility] [place] [facility] [address] [id number] [place] [address] Jul, [facility] [place] [facility] [address] [id number] [place] [address] Jul, [facility] [place] [facility] [address] [id number] [address] Jul, [facility] [id number] [address] Jul, [facility] [id number] [address] Jun, [facility] [id number] [address] Jul, [facility] [id number] [address] Jul, [facility] [id number] [address] Jul, [facility] [id number] [place] [address] Jul, [facility] [id number] [address] Jul, [facility] [id number] [address] Jul, [facility] [id number] [address] Jan, [facility] [id number] [address] 16 Sep, 2008 [facility] [id number] [address] Sep, IMMUNIZATIONS No Known Immunizations SOCIAL HISTORY Never Assessed REASON FOR VISIT RCT PLAN OF CARE Activity Details Follow Up RCT #18 and 19 Reason: VITAL SIGNS Heart Rate 78 bpm 2017-05-15 Blood pressure systolic 120 mmHg 2017-05-15 Blood pressure diastolic 80 mmHg 2017-05-15 MEDICATIONS Medication Instructions Dosage Frequency Start Date End Date Duration Status Omeprazole 20 mg Orally Once a day, ac 1 capsule Mar, 30 day(s) Active Percocet 5-325 MG Orally every 6 hrs 1 tablet as needed 6h Active Clorazepate Dipotassium 7.5 MG Orally 4 times a day 1 tablet as needed 6h 90 days Active InnoPran XL 120 MG Orally Once a day 1 capsule at bedtime 24h 30 Active InnoPran XL 80 MG Orally Once a day. Take along with 120mg 1 capsule at bedtime May, 30 Active RESULTS No Results PROCEDURES Procedure Date Ordered Result Body Site MOLAR May 28, 2017 Dental no charge May 15, 2017 Billing Notes on claim May 15, 2017 INSTRUCTIONS MEDICATIONS ADMINISTERED No Known [...]
--- OUTSIDE RECORDS SUMMARY | 2019-01-22 21:17 | XMS REPORT ---
Author Author KVNG MERCHANT Organization [facility] Address [address] [place] [address] Care Team Providers Care Thread Separator Name Role Phone KVNG MERCHANT Unavailable PROBLEMS Type Condition ICD9-CM Code OVD45-TK Code Onset Dates Condition Status SNOMED Code Problem Family history of diabetes mellitus Z83.3 Active 375897872 Problem Hot flashes N95.1 Active 111635958 Problem Excessive and frequent menstruation with irregular cycle N92.1 Active 976831864 Problem Diverticulitis K57.92 Active 374089860 Problem Gastroesophageal reflux disease with esophagitis K21.0 Active 172571954 Problem Mitral valve prolapse I34.1 Active 795999097 Problem Perimenopausal N95.1 Active 128037258173710 Problem Tachycardia R00.0 Active 2514759 Problem Abnormal uterine bleeding (AUB) N93.9 Active 03680772737601 Problem History of diverticulitis Z87.19 Active 172637336202699 Problem History of colon polyps Z86.010 Active 165995014 Problem Generalized anxiety disorder F41.1 Active 121220907 Problem Dense breast tissue R92.2 Active 096309009 Problem Hypertension I10 Active 31074199 Problem History of ovarian cyst Z87.42 Active 27732133 ALLERGIES No Information ENCOUNTERS Encounter Location Date Diagnosis [facility] [address] [id number] [address] Feb, [facility] [address] [id number], [place] [address] Jan, Hypertension I10 and Acute non-recurrent maxillary sinusitis J01.00 [facility] [address] [id number], [place] [address] December, [facility] [address] [id number], [place] [address] December, Hypertension I10 [facility] [address] [id number], [place] [address] December, Generalized anxiety disorder F41.1 [facility] [address] [id number] [address] Oct, Encounter for dental examination Z01.20 [facility] [address] [id number] [address] 06 Oct, 2017 Encounter for dental examination Z01.20 [facility] [address] [id number] [address] Oct, Dental examination Z01.20 [facility] [address] [id number] [place] [address] Oct, Generalized anxiety disorder F41.1 [facility] [address] [id number] [address] Aug, Dental examination Z01.20 [facility] [address] [id number] [place] [address] Aug, Generalized anxiety disorder F41.1 [facility] [address] [id number], [place] [address] Aug, [facility] [address] [id number] [place] [address] Aug, Encounter for dental examination Z01.20 [facility] [address] [facility] [id number], [place] [address] Aug, Subacute maxillary sinusitis J01.00 [facility] [address] [id number] [place] [address] Jul, Dental examination Z01.20 [facility] [address] [facility] [id number], [place] [address] Jul, Generalized anxiety disorder F41.1 [facility] [id number] [place] [address] Jul, Diverticulitis K57.92 [facility] [address], [place] [address] Jun, Encounter for immunization Z23 [facility] [address] [id number] [place] [address] 22 Jun, 2017 Dental examination Z01.20 [facility] [id number] [place] [address] 14 Jun, 2017 Generalized anxiety disorder F41.1 [facility] [address] [id number] [place] [address] 07 Jun, 2017 Dental examination Z01.20 [facility] [id number] [place] [address] May, [facility] [id number] [place] [address] [id number] May, Dental examination Z01.20 [facility] [id number] [place] [id number] May, Dental examination Z01.20 [facility] [id number] [place] [address] May, Dental examination Z01.20 [facility] [id number] [place] [address] May, [facility] [id number] [place] [address] May, Generalized anxiety disorder F41.1 [facility] [address] [place] [address] May, Localized edema R60.0 ; Yeast vaginitis B37.3 and Gastroesophageal reflux disease with esophagitis K21.0 [facility] [address] [place] [address] [id number] Apr, Dental examination Z01.20 [facility] [id number] [place] [address] Apr, Dental examination Z01.20 [facility] [address] [id number] [place] [address] 05 Apr, 2017 Dental examination Z01.20 [facility] [address], [place] [address] Mar, Dyspepsia R10.13 [facility] [id number] [place] [address] Mar, Generalized anxiety disorder F41.1 [facility] [address] [id number] [address] Mar, Encounter for dental examination Z01.20 [facility] [id number] [place] [address] [id number] Mar, [facility] [id number] [place] [id number] Mar, Dental examination Z01.20 [facility] [address] [place] [address] Feb, Hypertension I10 and Tachycardia R00.0 [facility] [address] [id number] [place] [address] Feb, [facility] [address], [place] [address] Feb, Generalized anxiety disorder F41.1 [facility] [id number] [place] [id number] Feb, Dental examination Z01.20 [facility] [address] [id number] [place] [address] Jan, Generalized anxiety disorder F41.1 [facility] [address] [id number], [place] [address] December, Generalized anxiety disorder F41.1 [facility] [id number] [place] [address] [id number] December, Encounter for dental examination Z01.20 [facility] [address], [place] [address] Nov, [facility] [address] [place] [address] Nov, [facility] [address] [place] [address] Nov, Generalized anxiety disorder F41.1 [facility] [address] [place] [address] 30 Oct, 2016 [facility] [address] [place] [address] [phone] Oct, Dental examination Z01.20 [facility] [id number] [place] [address] Oct, Vaginal dryness N89.8 [facility] [id number] [place] [address] Oct, Pseudoseizures F44.5 [facility] [address] [place] [address] Oct, Generalized anxiety disorder F41.1 [facility] [address] [place] [address] 28 Sep, 2016 Abnormal uterine bleeding (AUB) N93.9 ; Vaginal dryness N89.8 and Screening breast examination Z12.39 [facility] [address], [place] [address] Sep, Dental examination Z01.20 [facility] [address] [place] [address] Sep, Generalized anxiety disorder F41.1 [facility] [address], [place] [address] 06 Sep, 2016 Unspecified ovarian cyst, right side N83.201 ; Unspecified ovarian cyst, left side N83.202 ; Yeast infection of the vagina B37.3 ; Mitral valve prolapse I34.1 and Hypertension I10 [facility] [address] [place] [address] 18 Aug, 2016 Generalized anxiety disorder F41.1 [facility] [id number] [place] [address] 28 Jul, 2016 [facility] [id number] [place] [address] Jul, Generalized anxiety disorder F41.1 [facility] [id number] [place] [address] Jun, Generalized anxiety disorder F41.1 [facility] [id number] [place] [address] 28 May, 2016 Encounter for immunization Z23 [facility] [id number] [place] [address] 17 May, 2016 Generalized anxiety disorder F41.1 and Depressive disorder, not elsewhere classified F32.9 [facility] [id number] [place] [address] 28 Apr, 2016 Hypertension I10 [facility] [id number] [place] [address] 22 Apr, 2016 Cervicalgia M54.2 [facility] [address] [place] [address] 12 Apr, 2016 Cervicalgia M54.2 [facility] [id number] [place] [address] 09 Mar, 2016 Generalized anxiety disorder F41.1 and Depressive disorder, not elsewhere classified F32.9 [facility] [address] [place] [address] [id number] 14 Feb, 2016 Visit for dental examination Z01.20 [facility] [address] [place] [address] 11 Feb, 2016 Pseudoseizures F44.5 ; Migraine without status migrainosus, not intractable, unspecified migraine type G43.909 and Essential hypertension I10 [facility] [address] [id number] 06 Feb, 2016 Dental examination Z01.20 [facility] [id number] [place] [address] 05 Feb, 2016 Generalized anxiety disorder F41.1 and Depressive disorder, not elsewhere classified F32.9 [address] [facility] [id number] [place] [address] Jan, Tachycardia R00.0 [facility] [id number] [place] [address] December, Eustachian tube dysfunction, bilateral H69.83 [facility] [id number] [place] [address] December, Generalized anxiety disorder F41.1 and Depressive disorder, not elsewhere classified F32.9 [facility] [id number] [place] [address] 29 Nov, 2015 [place] [id number] [place] [address] 28 Nov, 2015 [address] [id number] [place] [address] 20 Nov, 2015 Hypertension I10 ; Onychomycosis [...] and Complex cyst of left ovary N83.29 [facility] [id number] [place] [address] 14 Nov, 2016 Sinusitis J32.9 [place] [address] [address] Oct, Complex cyst of left ovary N83.29 [place] [address] [address] Oct, Onychomycosis B35.1 [facility] [address] [id number] Oct, Dental examination Z01.20 [place] [address] [address] 09 Oct, 2015 Well woman exam Z01.419 [...] R92.2 and History of colon polyps Z86.010 [address] [address] [address] Oct, Generalized anxiety disorder F41.1 and Depressive disorder, not elsewhere classified F32.9 [address] [address] [address] Sep, Hypertension I10 and Onychomycosis B35.1 [place] [address] [address] Sep, Skin tags, multiple acquired L91.8 [place] [address] [address] Aug, [place] [address] [address] Aug, [address] [place] [address] [address] Aug, [place] [address] [place] [address] Aug, Generalized anxiety disorder F41.1 and Depressive disorder, not elsewhere classified F32.9 [facility] [id number] [place] [address] Jul, Skin lesion L98.9 [facility] [id number] [place] [address] Jun, Generalized anxiety disorder F41.1 and Depressive disorder, not elsewhere classified F32.9 [facility] [id number] [place] [address] Jun, [facility] [id number] [place] [address] Jun, Generalized anxiety disorder F41.1 [facility] [id number] [place] [address] May, Encounter for immunization Z23 and Right shoulder pain M25.511 [facility] [id number] [place] [address] Apr, [facility] [id number] [place] [address] Apr, Generalized anxiety disorder 300.02 and Depressive disorder, not elsewhere classified 311 [facility] [address] [place] [address] [id number] Mar, Dental examination V72.2 [facility] [id number] [place] [address] Mar, Generalized anxiety disorder 300.02 and Depressive disorder, not elsewhere classified 311 [facility] [address] [address] Mar, Depression, major, recurrent, 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.35 and 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 [facility] [id number] [place] [address] Feb, Generalized anxiety disorder 300.02 and Depressive disorder, not elsewhere classified 311 [facility] [id number] [id number] Feb, Dental examination V72.2 [facility] [address], [place] [address] 09 Jan, 2015 Generalized anxiety disorder 300.02 and Depressive disorder, not elsewhere classified 311 [facility] [id number] [place] [address] Jan, [facility] [id number] [place] [address] December, Generalized anxiety disorder 300.02 and Depressive disorder, not elsewhere classified 311 [facility] [id number] [place] [address] December, Major depressive disorder, recurrent, unspecified 296.30 and Panic disorder with agoraphobia 300.21 [facility] [id number] [place] [address] Nov, [facility] [address] [place] [address] Nov, [facility] [address] [place] [address] Oct, [facility] [address], [place] [address] Oct, [facility] [address], [place] [address] Oct, [facility] [address], [place] [address] Oct, [facility] [address], [place] [address] Sep, [facility] [address], [place] [address] Sep, [facility] [id number] [place] [address], [place] [address] Sep, 2014 [facility] [place] [facility] [address] [id number] [place] [address] Sep, 2014 [facility] [place] [facility] [address] [id number] [place] [address] Sep, 2014 [facility] [place] [facility] [address] [id number] [place] [address] Sep, 2014 [facility] [place] [facility] [address] [id number] [place] [address] Sep, 2014 [facility] [place] [facility] [address] [id number] [place] [address] Sep, 2014 [facility] [place] [facility] [address] [facility] [id number] [place] [address] Sep, 2014 [facility] [place] [facility] [address] [facility] [id number] [place] [address] Sep, 2014 [facility] [place] [facility] [address] [id number] [place] [address] Aug, [facility] [place] [facility] [address] [facility] [id number] [place] [address] Aug, [facility] [place] [facility] [address] [facility] [id number] [place] [address] Jul, [facility] [place] [facility] [address] [facility] [id number] [place] [address] Jul, [facility] [place] [facility] [address] [id number] [place] [address] Jul, [facility] [place] [facility] [address] [id number] [place] [address] Jul, [facility] [place] [facility] [address] [facility] [id number] [place] [address] Jul, [facility] [place] [facility] [address] [facility] [id number] [place] [address] Jul, [facility] [place] [facility] [address] [id number] [place] [address] Jul, [facility] [place] [facility] [address] [id number] [place] [address] Jul, [facility] [place] [facility] [address] [id number] [place] [address] Jul, [facility] [place] [facility] [address] [id number] [place] [address] Jul, [facility] [place] [facility] [address] [id number] [place] [address] Jul, [facility] [place] [facility] [address] [id number] [place] [address] Jul, [facility] [place] [facility] [address] [id number] [place] [address] Jun, [facility] [place] [facility] [address] [id number] [place] [address] Jun, [facility] [place] [facility] [address] [id number] [place] [address] May, [facility] [place] [facility] [address] [id number] [place] [address] May, [facility] [place] [facility] [address] [id number] [place] [address] May, [facility] [place] [facility] [address] [id number], [place] [address] May, [facility] [place] [facility] [address] [id number] [place] [address] May, [facility] [place] [facility] [address] [id number] [place] [address] May, [facility] [place] [facility] [address] [id number] [place] [address] May, [facility] [place] [facility] [address] [id number] [place] [address] May, [facility] [place] [facility] [address] [id number] [place] [address] May, [facility] [place] [facility] [address] [id number] [place] [address] May, [facility] [place] [facility] [address] [id number] [place] [address] May, [facility] [place] [facility] [address] [id number] [place] [address] May, [facility] [place] [facility] [address] [id number] [place] [address] 30 Apr, 2014 [facility] [place] [facility] [address] [id number] [place] [address] 30 Apr, 2013 [facility] [place] [facility] [address] [id number] [place] [address] Apr, 2013 [facility] [place] [facility] [address] [id number] [place] [address] 29 Apr, 2013 [facility] [place] [facility] [address] [id number] [place] [address] Apr, [facility] [place] [facility] [address] [id number] [place] [address] Apr, [facility] [place] [facility] [address] [id number] [place] [address] Feb, [facility] [place] [facility] [address] [id number] [place] [address] Feb, [facility] [place] [facility] [address] [id number] [place] [address] Feb, [facility] [place] [facility] [address] [id number] [place] [address] Feb, [facility] [place] [facility] [address] [id number] [place] [address] Feb, [facility] [place] [facility] [address] [id number] [place] [address] Feb, [facility] [place] [facility] [address] [id number] [place] [address] Jan, [facility] [place] [facility] [address] [id number] [place] [address] Jan, [facility] [place] [facility] [address] [id number] [place] [address] Jan, [facility] [place] [facility] [address] [id number] [place] [address] Jan, [facility] [place] [facility] [address] [id number] [place] [address] Jan, [facility] [place] [facility] [address] [id number] [place] [address] Jan, [facility] [place] [facility] [address] [id number] [place] [address] Jan, [facility] [place] [facility] [address] [id number] [place] [address] Jan, [facility] [place] [facility] [address] [id number] [place] [address] December, [facility] [place] [facility] [address] [id number] [place] [address] December, [facility] [place] [facility] [address] [id number] [place] [address] December, [facility] [place] [facility] [address] [id number] [place] [address] December, [facility] [place] [facility] [address] [id number] [place] [address] Nov, [facility] [place] [facility] [address] [id number] [place] [address] Nov, [facility] [place] [facility] [address] [id number] [place] [address] Nov, [facility] [place] [facility] [address] [id number] [place] [address] Nov, [facility] [place] [facility] [address] [id number] [place] [address] Nov, [facility] [place] [facility] [address] [id number] [place] [address] Nov, [facility] [place] [facility] [address] [id number] [place] [address] Nov, [facility] [place] [facility] [address] [id number] [place] [address] Nov, [facility] [place] [facility] [address] [id number] [place] [address] Oct, [facility] [place] [facility] [address] [id number] [place] [address] Oct, [facility] [place] [facility] [address] [id number] [place] [address] Sep, [facility] [place] [facility] [address] [id number] [place] [address] Sep, [facility] [place] [facility] [address] [facility] [id number] [place] [id number] Sep, [facility] [place] [facility] [address] [id number] [place] [address] Sep, [facility] [place] [facility] [address] [id number] [place] [address] Sep, [facility] [place] [facility] [address] [id number] [place] [address] Sep, [facility] [place] [facility] [address] [id number] [place] [address] Aug, [facility] [place] [facility] [address] [id number] [place] [address] Aug, [facility] [place] [facility] [address] [id number] [place] [address] Aug, [facility] [address] [id number] [place] [address] Aug, [facility] [place] [facility] [address] [id number] [place] [address] Jul, [facility] [place] [facility] [address] [id number] [place] [address] Jul, [facility] [place] [facility] [address] [id number] [place] [address] Jul, [facility] [place] [facility] [address] [id number] [place] [address] Jul, [facility] [place] [facility] [address] [id number] [place] [address] Jun, [facility] [place] [facility] [address] [id number] [place] [address] Jun, [facility] [place] [facility] [address] [id number] [place] [address] May, [facility] [place] [facility] [address] [id number] [place] [address] May, [facility] [place] [facility] [address] [id number] [place] [address] May, [facility] [place] [facility] [address] [id number] [place] [address] May, [facility] [place] [facility] [address] [id number] [place] [address] May, [facility] [place] [facility] [address] [id number] [place] [address] 17 Apr, 2013 [facility] [place] [facility] [address] [id number] [place] [address] Apr, [facility] [place] [facility] [address] [id number] [place] [address] Mar, [facility] [address] [id number] [place] [address] Mar, [facility] [place] [facility] [address] [id number] [place] [address] Mar, [facility] [place] [facility] [address] [id number] [place] [address] Mar, [facility] [place] [facility] [address] [id number] [place] [address] Feb, [facility] [place] [facility] [address] [id number] [place] [address] Feb, [facility] [place] [facility] [address] [id number] [place] [address] Feb, [facility] [place] [facility] [address] [id number] [place] [address] Feb, [facility] [place] [facility] [address] [id number] [place] [address] Feb, [facility] [place] [facility] [address] [id number] [place] [address] Jan, [facility] [place] [facility] [address] [id number] [place] [address] Jan, [facility] [place] [facility] [address] [id number] [place] [address] Jan, [facility] [place] [facility] [address] [id number] [place] [address] Jan, [facility] [place] [facility] [address] [id number] [place] [address] Jan, [facility] [place] [facility] [address] [id number] [place] [address] December, [facility] [place] [facility] [address] [id number] [place] [address] December, [facility] [place] [facility] [address] [id number] [place] [address] 17 Nov, 2012 [facility] [address] [id number] [place] [address] 02 Nov, 2012 [facility] [address] [id number] [place] [address] 19 Oct, 2012 [facility] [address] [id number] [place] [address] 13 Oct, 2012 [facility] [address] [id number] [place] [address] 05 Oct, 2012 [facility] [address] [id number] [place] [address] 14 Sep, 2012 [facility] [address] [id number] [place] [address] 24 Aug, 2012 [facility] [address] [id number] [place] [address] 16 Aug, 2012 [facility] [address] [id number] [place] [address] 15 Aug, 2012 [facility] [address] [id number] [place] [address] Aug, [facility] [address] [id number] [place] [address] Jul, [facility] [address] [id number] [place] [address] Jul, [facility] [address] [id number] [place] [address] Jul, [facility] [address] [id number] [place] [address] Jul, [facility] [address] [id number] [place] [address] Jul, [facility] [address] [id number] [place] [address] Jul, [facility] [place] [facility] [address] [id number] [place] [address] Jul, [facility] [place] [facility] [address] [id number] [place] [address] Jul, [facility] [place] [facility] [address] [id number] [place] [address] Jun, [facility] [place] [facility] [address] [id number] [place] [address], [place] [address] Jun, [facility] [place] [facility] [address] [id number] [place] [address] Jun, [facility] [place] [facility] [address] [id number] [place] [address] Jun, [facility] [place] [facility] [address] [facility] [id number] [place] [address] Jun, [facility] [place] [facility] [address] [id number] [place] [address] Jun, [facility] [place] [facility] [address] [id number] [place] [address] May, [facility] [place] [facility] [address] [id number] [place] [address] May, [facility] [place] [facility] [address] [facility] [id number] [place] [address] May, [facility] [place] [facility] [address] [id number] [place] [address] May, [facility] [place] [facility] [address] [id number] [place] [address] Apr, [facility] [place] [facility] [address] [id number] [place] [address] Apr, [facility] [place] [facility] [address] [id number] [place] [address] Mar, [facility] [place] [facility] [address] [id number] [place] [address] 28 Jan, 2012 [facility] [place] [facility] [address] [id number] [place] [address] 20 Jan, 2012 [facility] [place] [facility] [address] [id number] [place] [address] 16 Jan, 2012 [facility] [place] [facility] [address] [id number] [place] [address] 15 Jan, 2012 [facility] [place] [facility] [address] [id number] [place] [address] 14 Jan, 2012 [facility] [place] [facility] [address] [id number] [place] [address] 14 Jan, 2012 [facility] [place] [facility] [address] [id number] [place] [address] 07 Jan, 2012 [facility] [place] [facility] [address] [id number] [place] [address] December, [facility] [place] [facility] [address] [id number] [place] [address] December, [facility] [place] [facility] [address] [id number] [place] [address] December, [facility] [place] [facility] [address] [id number] [place] [address] December, [facility] [place] [facility] [address] [id number] [place] [address] Nov, [facility] [place] [facility] [address] [id number] [place] [address] 05 Nov, 2011 [facility] [place] [facility] [address] [id number] [place] [address] 29 Oct, 2011 [facility] [place] [facility] [address] [id number] [place] [address] 28 Oct, 2011 [facility] [place] [facility] [address] [id number] [place] [address] 15 Oct, 2011 [facility] [place] [facility] [address] [id number] [place] [address] Sep, [facility] [address] [id number] [place] [address] Sep, [facility] [address] [id number] [place] [address] Sep, [facility] [address] [id number] [place] [address] Aug, [facility] [address] [id number] [place] [address] Aug, [facility] [address] [id number] [place] [address] Aug, [facility] [address] [id number] [place] [address] Aug, [facility] [address] [id number] [place] [address] Aug, [facility] [address] [id number] [place] [address] Aug, [facility] [address] [id number] [place] [address] Aug, [facility] [address] [id number] [place] [address] Jul, [facility] [address] [id number] [place] [address] Jul, [facility] [address] [id number] [place] [address] Jun, [facility] [place] [facility] [address] [id number] [place] [address] Jun, [facility] [place] [facility] [address] [id number] [place] [address] Jun, [facility] [address] [id number] [place] [address] Jun, [facility] [place] [facility] [address] [id number] [place] [address] 14 Jun, 2011 [facility] [place] [facility] [address] [id number] [place] [address] 14 Jun, 2011 [facility] [place] [facility] [address] [id number] [place] [address] Jun, [facility] [place] [facility] [address] [id number] [place] [address] Jun, [facility] [place] [facility] [address] [id number] [place] [address] Jun, [facility] [place] [facility] [address] [id number] [place] [address] Jun, [facility] [place] [facility] [address] [id number] [place] [address] May, [facility] [place] [facility] [address] [id number] [place] [address] May, [facility] [place] [facility] [address] [id number] [place] [address] May, [facility] [place] [facility] [address] [id number] [place] [address] 24 May, 2011 [facility] [place] [facility] [address] [id number], [place] [address] May, [facility] [place] [facility] [address] [id number], [place] [address] May, [facility] [place] [facility] [address] [id number] [place] [address] Feb, [facility] [place] [facility] [address] [id number], [place] [address] December, [facility] [place] [facility] [address] [id number] [place] [address] Jul, [facility] [place] [facility] [id number], [place] [address] 29 Jul, 2010 [facility] [address], [place] [address] Jul, [facility] [id number], [place] [address] Jul, [facility] [id number], [place] [address] Jun, [facility] [id number], [place] [address] Jul, [facility] [id number] [place] [address] Jul, [facility] [id number] [place] [address] Jul, [facility] [id number] [place] [address] Jul, [facility] [id number], [place] [address] Jul, [facility] [id number] [place] [address] Jul, [facility] [address], [place] [address] Jan, [facility] [address], [place] [address] 16 Sep, 2008 [facility] [address], [place] [address] 11 Sep, 2008 IMMUNIZATIONS No Known Immunizations SOCIAL HISTORY Never Assessed REASON FOR VISIT followup Anxiety PLAN OF CARE Activity Details Follow Up 4 Weeks Reason: Follow-up VITAL SIGNS MEDICATIONS Unknown Medications RESULTS No Results PROCEDURES Procedure Date Ordered Result Body Site Psychotherapy, patient &/family, 45 minutes, established patient Sep 22, 2017 INSTRUCTIONS MEDICATIONS ADMINISTERED No Known [...]
--- OUTSIDE RECORDS SUMMARY | 2019-01-22 21:18 | XMS REPORT ---
Author Author KVNG MERCHANT Organization [facility] Address [address] [place] [address] Care Team Providers Care Jewelry Inspector Name Role Phone KVNG MERCHANT Unavailable PROBLEMS Type Condition ICD9-CM Code [id number] Code Onset Dates Condition Status SNOMED Code Problem Family history of diabetes mellitus Z83.3 Active 352377262 Problem Hot flashes N95.1 Active 843906539 Problem Excessive and frequent menstruation with irregular cycle N92.1 Active 298630023 Problem Diverticulitis K57.92 Active 441104446 Problem Gastroesophageal reflux disease with esophagitis K21.0 Active 614715810 Problem Mitral valve prolapse I34.1 Active 965460093 Problem Perimenopausal N95.1 Active 080705110619667 Problem Tachycardia R00.0 Active 6428873 Problem Abnormal uterine bleeding (AUB) N93.9 Active 28354328435042 Problem History of diverticulitis Z87.19 Active 120624662702445 Problem History of colon polyps Z86.010 Active 113665410 Problem Generalized anxiety disorder F41.1 Active 502146997 Problem Dense breast tissue R92.2 Active 034707311 Problem Hypertension I10 Active 10433715 Problem History of ovarian cyst Z87.42 Active 68616717 ALLERGIES No Information ENCOUNTERS Encounter Location Date Diagnosis [facility] [address] [facility] [id number], [place] [address] December, [facility] [address] [facility] [id number], [place] [address] Nov, [facility] [address] [id number], [place] [address] Oct, Encounter for dental examination Z01.20 [facility] [address] [id number], [place] [address] Oct, Encounter for dental examination Z01.20 [facility] [address] [id number], [place] [address] Oct, Dental examination Z01.20 [facility] [address] [place] [address] Oct, Generalized anxiety disorder F41.1 [facility] [address] [id number], [place] [address] Aug, Dental examination Z01.20 [facility] [id number] [place] [address] Aug, Generalized anxiety disorder F41.1 [facility] [id number] [place] [address] Aug, [facility] [id number] [place] [address] Aug, Encounter for dental examination Z01.20 [facility] [id number] [place] [address] Aug, Subacute maxillary sinusitis J01.00 [facility] [id number] [place] [address] 22 Jul, 2017 Dental examination Z01.20 [facility] [address]005[place] [address] Jul, Generalized anxiety disorder F41.1 [facility] [id number] [place] [address] 11 Jul, 2017 Diverticulitis K57.92 [facility] [id number] [place] [address] 28 Jun, 2017 Encounter for immunization Z23 [facility] [address] [id number], [place] [address] 22 Jun, 2017 Dental examination Z01.20 [facility] [address] [place] [address] Jun, Generalized anxiety disorder F41.1 [facility] [address] [id number], [place] [address] Jun, Dental examination Z01.20 [facility] [address] [id number], [place] [address] May, [facility] [address] [id number][place] [id number] May, Dental examination Z01.20 [facility] [id number] [place] [id number] May, Dental examination Z01.20 [facility] [id number] [place] [address] May, Dental examination Z01.20 [facility] [id number] [place] [address] May, [facility] [id number] [place] [address] May, Generalized anxiety disorder F41.1 [facility] [id number] [place] [address] May, Localized edema R60.0 ; Yeast vaginitis B37.3 and Gastroesophageal reflux disease with esophagitis K21.0 [facility] [address] [id number] [id number] Apr, Dental examination Z01.20 [facility] [address] [id number], [place] [address] Apr, Dental examination Z01.20 [facility] [address] [id number], [place] [address] 05 Apr, 2017 Dental examination Z01.20 [facility] [address] [place] [address] Mar, Dyspepsia R10.13 [facility] [id number] [place] [address] Mar, Generalized anxiety disorder F41.1 [facility] [address] [id number], [place] [address] Mar, Encounter for dental examination Z01.20 [facility] [address] [id number][place] [id number] Mar, [facility] [address] [id number][place] [id number] Mar, Dental examination Z01.20 [facility] [id number] [place] [address] Feb, Hypertension I10 and Tachycardia R00.0 [facility] [address] [id number], [place] [address] Feb, [facility] [id number] [place] [address] Feb, Generalized anxiety disorder F41.1 [facility] [address] [id number][place] [id number] Feb, Dental examination Z01.20 [facility] [id number] [place] [address] Jan, Generalized anxiety disorder F41.1 [facility] [address] [id number], [place] [address] December, Generalized anxiety disorder F41.1 [facility] [address] [id number][place] [id number] December, Encounter for dental examination Z01.20 [facility] [address] [id number], [place] [address] Nov, [facility] [address] [facility] [id number] [place] [address] Nov, [facility] [address] [facility] [id number], [place] [address] Nov, Generalized anxiety disorder F41.1 [facility] [address]00565100[place] [address] 30 Oct, 2016 [facility] [address] [place] [id number] Oct, Dental examination Z01.20 [facility] [id number] [place] [address] Oct, Vaginal dryness N89.8 [place] [id number] [place] [address] Oct, Pseudoseizures F44.5 [place] [id number] [place] [address] Oct, Generalized anxiety disorder F41.1 [facility] [facility] [id number] [place] [address] Sep, Abnormal uterine bleeding (AUB) N93.9 ; Vaginal dryness N89.8 and Screening breast examination Z12.39 [place] [id number] [place] [address] Sep, Dental examination Z01.20 [place] [id number] [place] [address] Sep, Generalized anxiety disorder F41.1 [place] [address] [place] [address] 06 Sep, 2016 Unspecified ovarian cyst, right side N83.201 ; Unspecified ovarian cyst, left side N83.202 ; Yeast infection of the vagina B37.3 ; Mitral valve prolapse I34.1 and Hypertension I10 [place] [address] [place] [address] Aug, Generalized anxiety disorder F41.1 [place] [address] [place] [address] Jul, [place] [address] [place] [address] Jul, Generalized anxiety disorder F41.1 [facility] [address] [place] [address] Jun, Generalized anxiety disorder F41.1 [facility] [id number] [place] [address] May, Encounter for immunization Z23 [facility] [id number] [place] [address] May, Generalized anxiety disorder F41.1 and Depressive disorder, not elsewhere classified F32.9 [facility] [id number] [place] [address] Apr, Hypertension I10 [facility] [id number] [place] [address] Apr, Cervicalgia M54.2 [facility] [id number] [place] [address] Apr, Cervicalgia M54.2 [facility] [id number] [place] [address] Mar, Generalized anxiety disorder F41.1 and Depressive disorder, not elsewhere classified F32.9 [facility] [id number] [place] [id number] Feb, Visit for dental examination Z01.20 [facility] [id number] [place] [address] Feb, Pseudoseizures F44.5 ; Migraine without status migrainosus, not intractable, unspecified migraine type G43.909 and Essential hypertension I10 [facility] [address] [place] [id number] Feb, Dental examination Z01.20 [facility] [id number] [place] [address] Feb, Generalized anxiety disorder F41.1 and Depressive disorder, not elsewhere classified F32.9 [facility] [id number] [place] [address] Jan, Tachycardia R00.0 [place] [id number] [place] [address] December, Eustachian tube dysfunction, bilateral H69.83 [place] [id number] [place] [address] December, Generalized anxiety disorder F41.1 and Depressive disorder, not elsewhere classified F32.9 [place] [id number] [place] [address] Nov, [place] [address] [address] Nov, [place] [id number] [place] [address] Nov, Hypertension I10 ; Onychomycosis B35.1 ; [...] and Complex cyst of left ovary N83.29 [place] [id number] [place] [address] 14 Nov, 2016 Sinusitis J32.9 [place] [id number] [place] [address] Oct, Complex cyst of left ovary N83.29 [place] [address] [address] Oct, Onychomycosis B35.1 [facility] [address] [place] [id number] 17 Oct, 2015 Dental examination Z01.20 [place] [address] [address] 09 Oct, 2016 Well woman exam Z01.419 [...] R92.2 and History of colon polyps Z86.010 [place] [address] [address] Oct, Generalized anxiety disorder F41.1 and Depressive disorder, not elsewhere classified F32.9 [place] [address] [address] 22 Sep, 2015 Hypertension I10 and Onychomycosis B35.1 [place] [address] [address] 16 Sep, 2015 Skin tags, multiple acquired L91.8 [place] [address] [address] Aug, [place] [address] [address] Aug, [place] [address] [address] Aug, [place] [address] [address] Aug, Generalized anxiety disorder F41.1 and Depressive disorder, not elsewhere classified F32.9 [place] [address] [address] Jul, Skin lesion L98.9 [place] [address] [address] Jun, Generalized anxiety disorder F41.1 and Depressive disorder, not elsewhere classified F32.9 [facility] [address] [address] Jun, [facility] [id number] [place] [address] Jun, Generalized anxiety disorder F41.1 [facility] [id number] [place] [address] May, Encounter for immunization Z23 and Right shoulder pain M25.511 [facility] [id number] [place] [address] Apr, [facility] [id number] [place] [address] Apr, Generalized anxiety disorder 300.02 and Depressive disorder, not elsewhere classified 311 [facility] [id number] [place] [phone] Mar, Dental examination V72.2 [facility] [id number] [place] [address] Mar, Generalized anxiety disorder 300.02 and Depressive disorder, not elsewhere classified 311 [facility] [id number] [place] [address] Mar, Depression, major, recurrent, 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.35 and 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 [facility] [id number] [place] [address] Feb, Generalized anxiety disorder 300.02 and Depressive disorder, not elsewhere classified 311 [facility] [address] [place] [address] [phone] Feb, Dental examination V72.2 [facility] [id number] [place] [address] Jan, Generalized anxiety disorder 300.02 and Depressive disorder, not elsewhere classified 311 [facility] [id number] [place] [address] Jan, [facility] [address]100[place] [address] December, Generalized anxiety disorder 300.02 and Depressive disorder, not elsewhere classified 311 [facility] [address]00565100[place] [address] 08 Dec, 2014 Major depressive disorder, recurrent, unspecified 296.30 and Panic disorder with agoraphobia 300.21 [facility] [address]00565100[place] [address] 14 Nov, 2014 [facility] [address]00565100[place], [place] [address] Nov, [facility] [address]00565100[place], [place] [address] Oct, [facility] [address]65100[place], [place] [address] Oct, [facility] [address]00565100[place], [place] [address] Oct, [facility] [address]65100[place], [place] [address] Oct, [facility] [address]65[address] [address] Sep, [facility] [address]65100[place], [place] [address] Sep, [facility] [address]65100[place], [place] [address] Sep, [facility] [address]65100[place], [place] [address] Sep, [facility] [address]00565100[place], [place] [address] Sep, [facility] [address]00565100[place], [place] [address] Sep, [facility] [place] [facility] [address] [id number] [place] [address] Sep, 2014 [facility] [place] [facility] [address] [id number] [place] [address] Sep, 2014 [facility] [place] [facility] [address] [id number] [place] [address] Sep, 2014 [facility] [place] [facility] [address] [id number] [place] [address] Sep, 2014 [facility] [place] [facility] [address] [id number] [place] [address] Aug, [facility] [place] [facility] [address] [id number] [place] [address] Aug, [facility] [place] [facility] [address] [id number] [place] [address] Jul, [facility] [place] [facility] [address] [id number] [place] [address] Jul, [facility] [place] [facility] [address] [id number] [place] [address] Jul, [facility] [place] [facility] [address] [id number] [place] [address] Jul, [facility] [place] [facility] [address] [id number] [place] [address] Jul, [facility] [place] [facility] [address] [id number] [place] [address] Jul, [facility] [place] [facility] [address] [id number] [place] [address] 05 Jul, 2014 [facility] [place] [facility] [address] [id number] [place] [address] 05 Jul, 2014 [facility] [place] [facility] [address] [id number] [place] [address] 04 Jul, 2014 [facility] [place] [facility] [address] [id number], [place] [address] Jul, [facility] [place] [facility] [address] [id number] [place] [address] Jul, [facility] [place] [facility] [address] [id number] [place] [address] Jul, [facility] [place] [facility] [address] [id number] [place] [address] Jun, [facility] [place] [facility] [address] [id number] [place] [address] Jun, [facility] [place] [facility] [address] [id number] [place] [address] May, [facility] [place] [facility] [address] [id number] [place] [address] May, [facility] [place] [facility] [address] [id number] [place] [address] May, [facility] [place] [facility] [address] [id number] [place] [address] May, [facility] [place] [facility] [address] [id number] [place] [address] May, [facility] [place] [facility] [address] [id number] [place] [address] May, [facility] [place] [facility] [address] [id number], [place] [address] May, [facility] [place] [facility] [address] [id number], [place] [address] May, [facility] [place] [facility] [address] [id number], [place] [address] May, [facility] [place] [facility] [address] [id number], [place] [address] May, [facility] [place] [facility] [address] [id number] [place] [address] May, [facility] [place] [facility] [address] [id number] [place] [address] May, [facility] [place] [facility] [address] [id number] [place] [address] 30 Apr, 2014 [facility] [place] [facility] [address] [id number] [place] [address] 30 Apr, 2013 [facility] [place] [facility] [address] [id number] [place] [address] Apr, [facility] [place] [facility] [address] [id number] [place] [address] Apr, [facility] [place] [facility] [address] [id number] [place] [address] Apr, [facility] [place] [facility] [address] [id number] [place] [address] Apr, [facility] [place] [facility] [address] [id number] [place] [address] Feb, [facility] [place] [facility] [address] [id number] [place] [address] Feb, [facility] [place] [facility] [address] [id number] [place] [address] Feb, [facility] [place] [facility] [address] [id number] [place] [address] Feb, [facility] [place] [facility] [address] [id number] [place] [address] Feb, [facility] [place] [facility] [address] [id number] [place] [address] Feb, [facility] [place] [facility] [address] [id number] [place] [address] Jan, [facility] [place] [facility] [address] [id number] [place] [address] Jan, [facility] [place] [facility] [address] [id number] [place] [address] Jan, [facility] [place] [facility] [address] [id number] [place] [address] Jan, [facility] [place] [facility] [address] [id number] [place] [address] Jan, [facility] [place] [facility] [address] [id number] [place] [address] Jan, [facility] [place] [facility] [address] [id number] [place] [address] Jan, [facility] [place] [facility] [address] [id number] [place] [address] Jan, [facility] [place] [facility] [address] [id number] [place] [address] December, [facility] [place] [facility] [address] [id number] [place] [address] December, [facility] [place] [facility] [address] [id number] [place] [address] December, [facility] [place] [facility] [address] [id number] [place] [address] December, [facility] [place] [facility] [address] [id number] [place] [address] Nov, [facility] [place] [facility] [address] [id number] [place] [address] Nov, [facility] [place] [facility] [address] [id number] [place] [address] Nov, [facility] [place] [facility] [address] [id number] [place] [address] Nov, [facility] [place] [facility] [address] [id number] [place] [address] Nov, [facility] [place] [facility] [address] [id number] [place] [address] Nov, [facility] [place] [facility] [address] [id number] [place] [address] Nov, [facility] [place] [facility] [address] [id number] [place] [address] Nov, [facility] [place] [facility] [address] [id number] [place] [address] Oct, [facility] [place] [facility] [address] [id number] [place] [address] Oct, [facility] [place] [facility] [address] [id number] [place] [address] Sep, [facility] [place] [facility] [address] [id number] [place] [address] Sep, [facility] [place] [facility] [address] [id number] [place] [id number] Sep, [facility] [place] [facility] [address] [id number] [place] [address] Sep, [facility] [place] [facility] [address] [id number] [place] [address] Sep, [facility] [place] [facility] [address] [id number] [place] [address] Sep, [facility] [place] [facility] [address] [id number] [place] [address] Aug, [facility] [place] [facility] [address] [id number] [place] [address] Aug, [facility] [place] [facility] [address] [id number] [place] [address] Aug, [facility] [place] [facility] [address] [id number] [place] [address] Aug, [facility] [place] [facility] [address] [id number] [place] [address] Jul, [facility] [place] [facility] [address] [id number] [place] [address] Jul, [facility] [place] [facility] [address] [id number] [place] [address] Jul, [facility] [place] [facility] [address] [id number] [place] [address] Jul, [facility] [place] [facility] [address] [id number] [place] [address] Jun, [facility] [place] [facility] [address] [id number] [place] [address] Jun, [facility] [place] [facility] [address] [id number] [place] [address] May, [facility] [place] [facility] [address] [id number] [place] [address] May, [facility] [place] [facility] [address] [id number] [place] [address] May, [facility] [place] [facility] [address] [id number] [place] [address] May, [facility] [place] [facility] [address] [id number] [place] [address] May, [facility] [place] [facility] [address] [id number] [place] [address] 17 Apr, 2013 [facility] [place] [facility] [address] [id number] [place] [address] Apr, [facility] [place] [facility] [address] [id number] [place] [address] 29 Mar, 2013 [facility] [place] [facility] [address] [id number] [place] [address] Mar, [facility] [place] [facility] [address] [id number] [place] [address] 15 Mar, 2013 [facility] [place] [facility] [address] [id number] [place] [address] Mar, [facility] [place] [facility] [address] [id number] [place] [address] Feb, [facility] [address] [id number] [place] [address] 17 Feb, 2013 [facility] [place] [facility] [address] [id number] [place] [address] Feb, [facility] [place] [facility] [address] [id number] [place] [address] Feb, [facility] [place] [facility] [address] [id number] [place] [address] Feb, [facility] [address] [id number] [place] [address] Jan, [facility] [place] [facility] [address] [id number] [place] [address] Jan, [facility] [place] [facility] [address] [id number] [place] [address] Jan, [facility] [place] [facility] [address] [id number] [place] [address] Jan, [facility] [place] [facility] [address] [id number] [place] [address] Jan, [facility] [place] [facility] [address] [id number] [place] [address] December, [facility] [place] [facility] [address] [id number] [place] [address] December, [facility] [place] [facility] [address] [id number] [place] [address] Nov, [facility] [place] [facility] [address] [id number] [place] [address] Nov, [facility] [place] [facility] [address] [id number] [place] [address] Oct, [facility] [place] [facility] [address] [id number] [place] [address] Oct, [facility] [place] [facility] [address] [id number] [place] [address] 05 Oct, 2012 [facility] [address] [id number] [place] [address] 14 Sep, 2012 [facility] [address] [id number] [place] [address] Aug, [facility] [address] [id number] [place] [address] 16 Aug, 2012 [facility] [address] [id number] [place] [address] Aug, [facility] [address] [id number] [place] [address] Aug, [facility] [address] [id number] [place] [address] Jul, [facility] [address] [id number] [place] [address] Jul, [facility] [address] [id number] [place] [address] Jul, [facility] [address] [id number] [place] [address] Jul, [facility] [address] [id number] [place] [address] Jul, [facility] [address] [id number] [place] [address] Jul, [facility] [address] [id number] [place] [address] Jul, [facility] [address] [id number] [place] [address] Jul, [facility] [address] [id number] [place] [address] Jun, [facility] [address] [id number] [place] [address] Jun, [facility] [place] [facility] [address] [id number] [place] [address] Jun, [facility] [place] [facility] [address] [id number] [place] [address] Jun, [facility] [place] [facility] [address] [id number] [place] [address] Jun, [facility] [place] [facility] [address] [id number] [place] [address] Jun, [facility] [place] [facility] [address] [id number] [place] [address] May, [facility] [place] [facility] [address] [id number] [place] [address] May, [facility] [place] [facility] [address] [facility] [id number] [place] [address] May, [facility] [place] [facility] [address] [id number] [place] [address] May, [facility] [place] [facility] [address] [id number] [place] [address] Apr, [facility] [place] [facility] [address] [facility] [id number] [address] Apr, [facility] [place] [facility] [address] [id number], [place] [address] Mar, [facility] [place] [facility] [address] [id number], [place] [address] Jan, [facility] [place] [facility] [address] [id number] [place] [address] Jan, [facility] [place] [facility] [address] [id number], [place] [address] 16 Jan, 2012 [facility] [place] [facility] [address] [facility] [id number] [place] [address] 15 Jan, 2012 [facility] [place] [facility] [address] [id number] [place] [address] 14 Jan, 2012 [facility] [place] [facility] [address] [id number] [place] [address] 14 Jan, 2012 [facility] [place] [facility] [address] [id number] [place] [address] 07 Jan, 2012 [facility] [place] [facility] [address] [id number] [place] [address] December, [facility] [place] [facility] [address] [id number] [place] [address] December, [facility] [place] [facility] [address] [id number] [place] [address] December, [facility] [place] [facility] [address] [id number] [place] [address] December, [facility] [place] [facility] [address] [id number] [place] [address] Nov, [facility] [place] [facility] [address] [id number] [place] [address] Nov, [facility] [place] [facility] [address] [id number] [place] [address] 29 Oct, 2011 [facility] [place] [facility] [address] [id number] [place] [address] Oct, [facility] [place] [facility] [address] [id number] [place] [address] 15 Oct, 2011 [facility] [place] [facility] [address] [id number] [place] [address] Sep, [facility] [place] [facility] [address] [id number] [place] [address] Sep, [facility] [place] [facility] [address] [id number] [place] [address] Sep, [facility] [place] [facility] [address] [id number] [place] [address] Aug, [facility] [place] [facility] [address] [id number] [place] [address] Aug, [facility] [address] [id number] [place] [address] Aug, [facility] [address] [id number] [place] [address] Aug, [facility] [address] [id number] [place] [address] Aug, [facility] [address] [id number] [place] [address] Aug, [facility] [address] [id number] [place] [address] Aug, [facility] [address] [id number] [place] [address] Jul, [facility] [address] [id number] [place] [address] Jul, [facility] [address] [id number] [place] [address] 30 Jun, 2011 [facility] [address] [id number] [place] [address] 28 Jun, 2011 [facility] [address] [id number] [place] [address] 17 Jun, 2011 [facility] [address] [id number] [place] [address] 15 Jun, 2011 [facility] [place] [facility] [address] [id number] [place] [address] 14 Jun, 2011 [facility] [place] [facility] [address] [id number] [place] [address] 14 Jun, 2011 [facility] [place] [facility] [address] [id number] [place] [address] 07 Jun, 2011 [facility] [place] [facility] [address] [id number] [place] [address] Jun, [facility] [place] [facility] [address] [id number] [place] [address] Jun, [facility] [place] [facility] [address] [id number] [place] [address] Jun, [facility] [place] [facility] [address] [id number] [place] [address] May, [facility] [place] [facility] [address] [id number] [place] [address] May, [facility] [place] [facility] [address] [id number] [place] [address] May, [facility] [place] [facility] [address] [id number] [place] [address] 24 May, 2011 [facility] [place] [facility] [address] [id number] [place] [address] May, [facility] [place] [facility] [address] [id number] [place] [address] May, [facility] [place] [facility] [address] [id number] [place] [address] Feb, [facility] [place] [facility] [address] [id number] [place] [address] December, [facility] [place] [facility] [address] [id number] [place] [address] Jul, [facility] [place] [facility] [address] [id number] [place] [address] 29 Jul, 2010 [facility] [place] [facility] [address] [id number] [place] [address] Jul, [facility] [place] [facility] [address] [id number] [place] [address] Jul, [facility] [place] [facility] [address] [id number] [place] [address] 15 Jun, 2010 [facility] [place] [facility] [address] [id number] [address] 31 Jul, 2009 [facility] [id number], [place] [address] Jul, [facility] [id number], [place] [address] Jul, [facility] [id number], [place] [address] Jul, [facility] [id number], [place] [address] Jul, [facility] [id number], [place] [address] Jul, [facility] [id number], [place] [address] Jan, [facility] [id number], [place] [address] 16 Sep, 2008 [facility] [address] [id number], [place] [address] Sep, IMMUNIZATIONS No Known Immunizations SOCIAL HISTORY Never Assessed REASON FOR VISIT followup Anxiety PLAN OF CARE Activity Details Follow Up 4 Weeks Reason: Follow-up VITAL SIGNS MEDICATIONS Unknown Medications RESULTS No Results PROCEDURES Procedure Date Ordered Result Body Site Psychotherapy, patient &/family, 45 minutes, established patient March 11, 2017 INSTRUCTIONS MEDICATIONS ADMINISTERED No Known Medications [...]
--- OUTSIDE RECORDS SUMMARY | 2019-01-22 21:19 | XMS REPORT ---
Author Author EILEEN CUNNINGHAM [facility] Address [address] [place] [address] Care Team Providers Care Grade Recorder Name Role Phone EILEEN CUNNINGHAM Unavailable PROBLEMS Type Condition ICD9-CM Code LOO47-DR Code Onset Dates Condition Status SNOMED Code Problem Family history of diabetes mellitus Z83.3 Active 121537990 Problem Hot flashes N95.1 Active 019296284 Problem Excessive and frequent menstruation with irregular cycle N92.1 Active 020400615 Problem Diverticulitis K57.92 Active 994650470 Problem Gastroesophageal reflux disease with esophagitis K21.0 Active 858927717 Problem Mitral valve prolapse I34.1 Active 348708235 Problem Perimenopausal N95.1 Active 479321225804437 Problem Tachycardia R00.0 Active 9503655 Problem Abnormal uterine bleeding (AUB) N93.9 Active 80107931759468 Problem History of diverticulitis Z87.19 Active 208065789044426 Problem History of colon polyps Z86.010 Active 303904939 Problem Generalized anxiety disorder F41.1 Active 907714641 Problem Dense breast tissue R92.2 Active 183457366 Problem Hypertension I10 Active 42143959 Problem History of ovarian cyst Z87.42 Active 76383800 ALLERGIES Substance Reaction Event Type Date Status Sulfamethoxazole-Trimethoprim anaphylaxis Drug Allergy Aug, Active Erythromycin rash Drug Allergy Aug, Active Hydrocodone vomiting Non Drug Allergy Aug, Active ENCOUNTERS Encounter Location Date Diagnosis [facility] [address] [facility] [id number], [place] [address] Feb, [facility] [address] [id number], [place] [address] Jan, Hypertension I10 and Acute non-recurrent maxillary sinusitis J01.00 [facility] [address] [id number], [place] [address] December, [facility] [address], [place] [address] December, Hypertension I10 [facility] [address], [place] [address] December, Generalized anxiety disorder F41.1 [facility] [address] [id number], [place] [address] Oct, Encounter for dental examination Z01.20 [facility] [address] [id number], [place] [address] Oct, Encounter for dental examination Z01.20 [facility] [id number] [place] [address] Oct, Dental examination Z01.20 [facility] [address] [place] [address] Oct, Generalized anxiety disorder F41.1 [facility] [id number] [place] [address] Aug, Dental examination Z01.20 [facility] [address] [place] [address] Aug, Generalized anxiety disorder F41.1 [facility] [address], [place] [address] Aug, [facility] [address] [id number], [place] [address] Aug, Encounter for dental examination Z01.20 [facility] [address] [place] [address] Aug, Subacute maxillary sinusitis J01.00 [facility] [address] [id number], [place] [address] Jul, Dental examination Z01.20 [facility] [address] [place] [address] Jul, Generalized anxiety disorder F41.1 [facility] [address], [place] [address] Jul, Diverticulitis K57.92 [facility] [address], [place] [address] 28 Jun, 2017 Encounter for immunization Z23 [facility] [address] [id number], [place] [address] 22 Jun, 2017 Dental examination Z01.20 [facility] [address] [place] [address] 14 Jun, 2017 Generalized anxiety disorder F41.1 [facility] [address] [id number], [place] [address] 07 Jun, 2017 Dental examination Z01.20 [facility] [address] [place] [address] May, [facility] [address] [place] [address] [id number] May, Dental examination Z01.20 [facility] [address] [place] [address] [id number] May, Dental examination Z01.20 [facility] [id number], [place] [address] May, Dental examination Z01.20 [facility] [address] [place] [address] May, [facility] [address], [place] [address] May, Generalized anxiety disorder F41.1 [facility] [address], [place] [address] 05 May, 2017 Localized edema R60.0 ; Yeast vaginitis B37.3 and Gastroesophageal reflux disease with esophagitis K21.0 [facility] [address] [id number] [id number] 26 Apr, 2017 Dental examination Z01.20 [facility] [address] [id number], [place] [address] Apr, Dental examination Z01.20 [facility] [address] [id number], [place] [address] 05 Apr, 2017 Dental examination Z01.20 [facility] [id number] [place] [address] Mar, Dyspepsia R10.13 [facility] [id number] [place] [address] Mar, Generalized anxiety disorder F41.1 [facility] [id number] [place] [address] Mar, Encounter for dental examination Z01.20 [facility] [address] [place] [address] [phone] Mar, [facility] [id number] [place] [phone] Mar, Dental examination Z01.20 [facility] [address] [place] [address] Feb, Hypertension I10 and Tachycardia R00.0 [facility] [id number], [place] [address] Feb, [facility] [address] [place] [address] Feb, Generalized anxiety disorder F41.1 [facility] [id number] [place] [address] [phone] Feb, Dental examination Z01.20 [facility] [address], [place] [address] Jan, Generalized anxiety disorder F41.1 [facility] [id number] [place] [address] December, Generalized anxiety disorder F41.1 [facility] [address] [place] [phone] December, Encounter for dental examination Z01.20 [facility] [address] [place] [address] Nov, [facility] [id number] [place] [address] Nov, [facility] [id number] [place] [address] Nov, Generalized anxiety disorder F41.1 [facility] [id number] [place] [address] Oct, [facility] [address] [place] [address] [phone] Oct, Dental examination Z01.20 [facility] [id number] [place] [address] Oct, Vaginal dryness N89.8 [facility] [id number] [place] [address] Oct, Pseudoseizures F44.5 [facility] [address] [place] [address] Oct, Generalized anxiety disorder F41.1 [facility] [id number] [place] [address] Sep, Abnormal uterine bleeding (AUB) N93.9 ; Vaginal dryness N89.8 and Screening breast examination Z12.39 [facility] [id number] [place] [address] Sep, Dental examination Z01.20 [facility] [address] [place] [address] Sep, Generalized anxiety disorder F41.1 [facility] [id number] [place] [address] 06 Sep, 2016 Unspecified ovarian cyst, right side N83.201 ; Unspecified ovarian cyst, left side N83.202 ; Yeast infection of the vagina B37.3 ; Mitral valve prolapse I34.1 and Hypertension I10 [facility] [id number] [place] [address] Aug, Generalized anxiety disorder F41.1 [facility] [address] [address] Jul, [facility] [address] [address] Jul, Generalized anxiety disorder F41.1 [facility] [id number] [place] [address] Jun, Generalized anxiety disorder F41.1 [facility] [address] [address] 28 May, 2016 Encounter for immunization Z23 [facility] [id number] [place] [address] 17 May, 2016 Generalized anxiety disorder F41.1 and Depressive disorder, not elsewhere classified F32.9 [facility] [id number] [place] [address] 28 Apr, 2016 Hypertension I10 [facility] [id number] [place] [address] 22 Apr, 2016 Cervicalgia M54.2 [facility] [id number] [place] [address] 12 Apr, 2016 Cervicalgia M54.2 [facility] [id number] [place] [address] 09 Mar, 2016 Generalized anxiety disorder F41.1 and Depressive disorder, not elsewhere classified F32.9 [facility] [address] [place] [address] [id number] 14 Feb, 2016 Visit for dental examination Z01.20 [address] [address] [place] [address] 11 Feb, 2016 Pseudoseizures F44.5 ; Migraine without status migrainosus, not intractable, unspecified migraine type G43.909 and Essential hypertension I10 [facility] [address] [place] [address] [id number] 06 Feb, 2016 Dental examination Z01.20 [place] [id number] [place] [address] 05 Feb, 2016 Generalized anxiety disorder F41.1 and Depressive disorder, not elsewhere classified F32.9 [place] [address] [address] Jan, Tachycardia R00.0 [place] [id number] [place] [address] December, Eustachian tube dysfunction, bilateral H69.83 [place] [id number] [place] [address] December, Generalized anxiety disorder F41.1 and Depressive disorder, not elsewhere classified F32.9 [place] [id number] [place] [address] Nov, [place] [id number] [place] [address] Nov, [place] [address] [address] Nov, Hypertension I10 ; Onychomycosis B35.1 ; [...] and Complex cyst of left ovary N83.29 [place] [id number] [place] [address] 14 Nov, 2015 Sinusitis J32.9 [place] [address] [address] Oct, Complex cyst of left ovary N83.29 [place] [address] [address] Oct, Onychomycosis B35.1 [facility] [address] [id number] 17 Oct, 2015 Dental examination Z01.20 [place] [address] [address] 09 Oct, 2015 Well woman exam Z01.419 [...] R92.2 and History of colon polyps Z86.010 [place] [id number] [place] [address] Oct, Generalized anxiety disorder F41.1 and Depressive disorder, not elsewhere classified F32.9 [place] [id number] [place] [address] Sep, Hypertension I10 and Onychomycosis B35.1 [place] [address] [address] Sep, Skin tags, multiple acquired L91.[address] [address] Aug, [place] [address] [address] Aug, [facility] [id number] [place] [address] Aug, [facility] [id number] [place] [address] Aug, Generalized anxiety disorder F41.1 and Depressive disorder, not elsewhere classified F32.9 [facility] [id number] [place] [address] Jul, Skin lesion L98.9 [facility] [id number] [place] [address] Jun, Generalized anxiety disorder F41.1 and Depressive disorder, not elsewhere classified F32.9 [facility] [id number] [place] [address] Jun, [facility] [address] [address] Jun, Generalized anxiety disorder F41.1 [facility] [id number] [place] [address] May, Encounter for immunization Z23 and Right shoulder pain M25.511 [facility] [id number] [place] [address] Apr, [facility] [id number] [place] [address] 14 Apr, 2015 Generalized anxiety disorder 300.02 and Depressive disorder, not elsewhere classified 311 [facility] [address] [place] [address] [phone] Mar, Dental examination V72.2 [facility] [id number] [place] [address] Mar, Generalized anxiety disorder 300.02 and Depressive disorder, not elsewhere classified 311 [facility] [id number] [place] [address] Mar, Depression, major, recurrent, 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.35 and 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 [facility] [address], [place] [address] Feb, Generalized anxiety disorder 300.02 and Depressive disorder, not elsewhere classified 311 [facility] [id number] [id number] 07 Feb, 2015 Dental examination V72.2 [facility] [id number] [place] [address] 09 Jan, 2015 Generalized anxiety disorder 300.02 and Depressive disorder, not elsewhere classified 311 [facility] [address] [place] [address] Jan, [facility] [id number] [place] [address] December, Generalized anxiety disorder 300.02 and Depressive disorder, not elsewhere classified 311 [facility] [address], [place] [address] December, Major depressive disorder, recurrent, unspecified 296.30 and Panic disorder with agoraphobia 300.21 [facility] [address], [place] [address] Nov, [facility] [address], [place] [address] Nov, [facility] [address], [place] [address] Oct, [facility] [address], [place] [address] Oct, [facility] [address], [place] [address] Oct, [facility] [address], [place] [address] Oct, [facility] [address], [place] [address] Sep, [facility] [place] [facility] [address] [id number] [place] [address] Sep, 2014 [facility] [place] [facility] [address] [id number] [place] [address] Sep, 2014 [facility] [place] [facility] [address] [id number] [place] [address] Sep, 2014 [facility] [place] [facility] [address] [id number] [place] [address] Sep, 2014 [facility] [place] [facility] [address] [id number] [place] [address] Sep, 2014 [facility] [place] [facility] [address] [id number] [place] [address] Sep, 2014 [facility] [place] [facility] [address] [facility] [id number] [place] [address] Sep, 2014 [facility] [place] [facility] [address] [id number] [place] [address] Sep, 2014 [facility] [place] [facility] [address] [id number] [place] [address] Sep, [facility] [place] [facility] [address] [facility] [id number] [place] [address] Aug, [facility] [place] [facility] [address] [id number] [place] [address] Aug, [facility] [place] [facility] [address] [id number], [place] [address] Jul, [facility] [place] [facility] [address] [id number] [place] [address] Jul, [facility] [place] [facility] [address] [id number] [place] [address] Jul, [facility] [place] [facility] [address] [facility] [id number] [place] [address] Jul, [facility] [place] [facility] [address] [id number] [place] [address] Jul, [facility] [place] [facility] [address] [id number] [place] [address] Jul, [facility] [place] [facility] [address] [id number] [place] [address] Jul, [facility] [place] [facility] [address] [id number] [place] [address] Jul, [facility] [place] [facility] [address] [id number] [place] [address] Jul, [facility] [place] [facility] [address] [id number] [place] [address] Jul, [facility] [place] [facility] [address] [id number] [place] [address] Jul, [facility] [place] [facility] [address] [id number] [place] [address] Jul, [facility] [place] [facility] [address] [id number] [place] [address] Jun, [facility] [place] [facility] [address] [id number] [place] [address] Jun, [facility] [place] [facility] [address] [id number] [place] [address] May, [facility] [place] [facility] [address] [id number] [place] [address] May, [facility] [place] [facility] [address] [id number] [place] [address] May, [facility] [place] [facility] [address] [id number] [place] [address] May, [facility] [place] [facility] [address] [id number] [place] [address] May, [facility] [place] [facility] [address] [id number] [place] [address] May, [facility] [place] [facility] [address] [id number] [place] [address] May, [facility] [place] [facility] [address] [id number] [place] [address] May, [facility] [place] [facility] [address] [id number] [place] [address] May, [facility] [place] [facility] [address] [id number] [place] [address] May, [facility] [place] [facility] [address] [id number] [place] [address] May, [facility] [place] [facility] [address] [id number] [place] [address] May, [facility] [place] [facility] [address] [id number] [place] [address] 30 Apr, 2014 [facility] [place] [facility] [address] [id number] [place] [address] 30 Apr, 2014 [facility] [place] [facility] [address] [id number] [place] [address] Apr, [facility] [place] [facility] [address] [id number] [place] [address] Apr, [facility] [place] [facility] [address] [id number] [place] [address] Apr, [facility] [place] [facility] [address] [id number] [place] [address] Apr, 2013 [facility] [place] [facility] [address] [id number] [place] [address] Feb, [facility] [place] [facility] [address] [id number] [place] [address] Feb, [facility] [place] [facility] [address] [id number] [place] [address] Feb, [facility] [place] [facility] [address] [id number] [place] [address] Feb, [facility] [place] [facility] [address] [id number] [place] [address] Feb, [facility] [place] [facility] [address] [id number] [place] [address] Feb, [facility] [place] [facility] [address] [id number] [place] [address] Jan, [facility] [place] [facility] [address] [id number] [place] [address] Jan, [facility] [place] [facility] [address] [id number] [place] [address] Jan, [facility] [place] [facility] [address] [id number] [place] [address] Jan, [facility] [place] [facility] [address] [id number] [place] [address] Jan, [facility] [place] [facility] [address] [id number] [place] [address] Jan, [facility] [place] [facility] [address] [id number] [place] [address] Jan, [facility] [place] [facility] [address] [id number] [place] [address] Jan, [facility] [place] [facility] [address] [id number] [place] [address] December, [facility] [place] [facility] [address] [id number] [place] [address] December, [facility] [place] [facility] [address] [id number] [place] [address] December, [facility] [place] [facility] [address] [id number] [place] [address] December, [facility] [place] [facility] [address] [id number] [place] [address] Nov, [facility] [place] [facility] [address] [id number] [place] [address] Nov, [facility] [address] [id number] [place] [address] Nov, [facility] [place] [facility] [address] [id number] [place] [address] Nov, [facility] [address] [id number] [place] [address] Nov, [facility] [place] [facility] [address] [id number] [place] [address] Nov, [facility] [place] [facility] [address] [id number] [place] [address] Nov, [facility] [place] [facility] [address] [id number] [place] [address] Nov, [facility] [place] [facility] [address] [id number] [place] [address] Oct, [facility] [address] [id number] [place] [address] Oct, [facility] [place] [facility] [address] [id number] [place] [address] Sep, [facility] [place] [facility] [address] [id number] [place] [address] Sep, [facility] [place] [facility] [address] [id number] [place] [id number] Sep, [facility] [place] [facility] [address] [id number] [place] [address] Sep, [facility] [place] [facility] [address] [id number] [place] [address] Sep, [facility] [place] [facility] [address] [id number] [place] [address] Sep, [facility] [place] [facility] [address] [id number] [place] [address] Aug, [facility] [place] [facility] [address] [id number] [place] [address] Aug, [facility] [place] [facility] [address] [id number] [place] [address] Aug, [facility] [place] [facility] [address] [facility] [id number] [place] [address] Aug, [facility] [place] [facility] [address] [id number] [place] [address] Jul, [facility] [place] [facility] [address] [id number] [place] [address] Jul, [facility] [place] [facility] [address] [id number] [place] [address] Jul, [facility] [place] [facility] [address] [id number] [place] [address] Jul, [facility] [place] [facility] [address] [id number], [place] [address] Jun, [facility] [place] [facility] [address] [id number] [place] [address] Jun, [facility] [place] [facility] [address] [id number], [place] [address] May, [facility] [facility] [address] [id number], [place] [address] 24 May, 2013 [facility] [address] [id number], [place] [address] May, [facility] [address] [id number], [place] [address] 11 May, 2013 [facility] [place] [facility] [address] [id number], [place] [address] 10 May, 2013 [facility] [place] [facility] [address] [id number], [place] [address] 17 Apr, 2013 [facility] [place] [facility] [address] [id number] [place] [address] Apr, [facility] [address] [id number] [place] [address] Mar, [facility] [place] [facility] [address] [id number] [place] [address] Mar, [facility] [place] [facility] [address] [id number] [place] [address] Mar, [facility] [place] [facility] [address] [id number] [place] [address] Mar, [facility] [place] [facility] [address] [id number] [place] [address] Feb, [facility] [place] [facility] [address] [id number] [place] [address] Feb, [facility] [address] [id number] [place] [address] Feb, [facility] [place] [facility] [address] [id number] [place] [address] Feb, [facility] [place] [facility] [address] [id number] [place] [address] Feb, [facility] [address] [id number] [place] [address] Jan, [facility] [place] [facility] [address] [id number] [place] [address] Jan, [facility] [place] [facility] [address] [id number] [place] [address] Jan, [facility] [place] [facility] [address] [id number] [place] [address] Jan, [facility] [place] [facility] [address] [id number] [place] [address] Jan, [facility] [place] [facility] [address] [id number] [place] [address] December, [facility] [place] [facility] [address] [id number] [place] [address] December, [facility] [address] [id number] [place] [address] Nov, [facility] [address] [id number] [place] [address] Nov, [facility] [address] [id number] [place] [address] Oct, [facility] [address] [id number] [place] [address] Oct, [facility] [address] [id number] [place] [address] Oct, [facility] [address] [id number] [place] [address] Sep, [facility] [address] [id number] [place] [address] Aug, [facility] [address] [id number] [place] [address] Aug, [facility] [address] [id number] [place] [address] Aug, [facility] [address] [id number] [place] [address] Aug, [facility] [address] [id number] [place] [address] Jul, [facility] [address] [id number] [place] [address] Jul, [facility] [address] [id number] [place] [address] Jul, [facility] [address] [id number] [place] [address] Jul, [facility] [address] [id number], [place] [address] Jul, [facility] [place] [facility] [address] [id number] [place] [address] Jul, [facility] [facility] [address] [id number], [place] [address] Jul, [facility] [place] [facility] [address] [facility] [id number] [place] [address] Jul, [facility] [facility] [address] [id number], [place] [address] Jun, [facility] [address] [id number] [place] [address] Jun, [facility] [place] [facility] [address] [id number] [place] [address] Jun, [facility] [address] [id number], [place] [address] Jun, [facility] [address] [facility] [id number], [place] [address] Jun, [facility] [address] [facility] [id number], [place] [address] Jun, [facility] [address] [facility] [id number], [place] [address] May, [facility] [address] [id number], [place] [address] May, [facility] [address] [facility] [id number], [place] [address] May, [facility] [address] [id number], [place] [address] May, [facility] [address] [facility] [id number], [place] [address] Apr, [facility] [address] [facility] [id number], [place] [address] Apr, [facility] [place] [address] [id number] [place] [address] 08 Mar, 2012 [facility] [address] [id number] [place] [address] 28 Jan, 2012 [facility] [place] [facility] [address] [id number] [place] [address] 20 Jan, 2012 [facility] [address] [id number] [place] [address] 16 Jan, 2012 [facility] [place] [facility] [address] [id number] [place] [address] 15 Jan, 2012 [facility] [facility] [address] [id number] [place] [address] 14 Jan, 2012 [facility] [address] [id number] [place] [address] 14 Jan, 2012 [facility] [address] [id number] [place] [address] 07 Jan, 2012 [facility] [address] [id number] [place] [address] December, [facility] [address] [id number] [place] [address] December, [facility] [address] [id number] [place] [address] December, [facility] [address] [id number] [place] [address] December, [facility] [address] [id number] [place] [address] Nov, [facility] [place] [facility] [address] [id number] [place] [address] Nov, [facility] [address] [id number] [place] [address] Oct, [facility] [address] [id number] [place] [address] Oct, [facility] [address] [id number] [place] [address] Oct, [facility] [facility] [address] [id number] [place] [address] Sep, [facility] [facility] [address] [id number] [place] [address] Sep, [facility] [facility] [address] [id number] [place] [address] Sep, [facility] [place] [facility] [address] [id number] [place] [address] Aug, [facility] [address] [id number] [place] [address] Aug, [facility] [facility] [address] [id number] [place] [address] Aug, [facility] [place] [facility] [address] [id number] [place] [address] Aug, [facility] [place] [facility] [address] [id number] [place] [address] Aug, [facility] [place] [facility] [address] [id number] [place] [address] Aug, [facility] [place] [facility] [address] [id number] [place] [address] Aug, [facility] [place] [facility] [address] [id number] [place] [address] Jul, [facility] [facility] [address] [id number] [place] [address] Jul, [facility] [place] [facility] [address] [id number] [place] [address] Jun, [facility] [place] [facility] [address] [id number] [place] [address] Jun, [facility] [address] [id number] [place] [address] 17 Jun, 2011 [facility] [place] [facility] [address] [id number] [place] [address] 15 Jun, 2011 [facility] [place] [address] [id number] [place] [address] 14 Jun, 2011 [facility] [address] [id number] [place] [address] 14 Jun, 2011 [facility] [address] [id number] [place] [address] Jun, [facility] [address] [id number] [place] [address] Jun, [facility] [address] [id number] [place] [address] Jun, [facility] [address] [id number] [place] [address] Jun, [facility] [place] [address] [id number] [place] [address] May, [facility] [address] [id number] [place] [address] May, [facility] [place] [address] [id number] [place] [address] May, [facility] [place] [facility] [address] [id number] [place] [address] 24 May, 2011 [facility] [place] [address] [id number] [place] [address] 18 May, 2011 [facility] [place] [address] [id number] [place] [address] May, [facility] [place] [facility] [address] [id number] [place] [address] Feb, [facility] [place] [facility] [address] [id number] [place] [address] December, [facility] [address] [facility] [id number], [place] [address] Jul, [facility] [address] [facility] [id number], [place] [address] Jul, [facility] [address] [id number], [place] [address] Jul, [facility] [id number], [place] [address] Jul, [facility] [address] [facility] [id number], [place] [address] Jun, [facility] [id number], [place] [address] Jul, [facility] [id number], [place] [address] Jul, [facility] [id number], [place] [address] Jul, [facility] [id number], [place] [address] Jul, [facility] [id number], [place] [address] Jul, [facility] [address] [id number], [place] [address] Jul, [facility] [address] [id number], [place] [address] Jan, [facility] [address] [id number], [place] [address] Sep, [facility] [address] [id number], [place] [address] Sep, IMMUNIZATIONS No Known Immunizations SOCIAL HISTORY Never Assessed REASON FOR VISIT Sinus c/o--tcuppettRN, Nasal/chest congestion. Pt reports has had this for 2.5 w eeks. Went to an urgent care before [place]. Was given a zpak and reports mayela le relief since taking that. PLAN OF CARE Activity Details Follow Up prn Reason: VITAL SIGNS Height 66 in 2017-09-01 Weight 174.2 lbs 2017-09-01 Temperature 97.7 degrees Fahrenheit 2017-09-01 Heart Rate 76 bpm 2017-09-01 Respiratory Rate 18 2017-09-01 BMI 28.11 kg/m2 2017-09-01 Blood pressure systolic 128 mmHg 2017-09-01 Blood pressure diastolic 82 mmHg 2017-09-01 MEDICATIONS Medication Instructions Dosage Frequency Start Date End Date Duration Status Mullens 7.5-325 MG Orally every 4-6 hours as needed 1 tablet Not-Taking Flagyl 500 MG Orally 4 times a day 1 tablet 6h Not-Taking Hyoscyamine Sulfate 0.125 mg 1 tablet by Oral route 4 times per day PRN Jul, Not-Taking Percocet 5-325 MG Orally every 6 hrs 1 tablet as needed 6h Not-Taking Zofran Not-Taking Augmentin 875-125 MG Orally every 12 hrs 1 tablet 12h Aug, Aug, 14 days Active InnoPran XL 80 MG Orally Once a day. Take along with 120mg 1 capsule at bedtime 30 Active Azithromycin Not-Taking Hydrochlorothiazide 25 MG Orally Once a day as needed TAKE ONE 90 days Active Clorazepate Dipotassium 7.5 MG Orally 4 times a day 1 tablet as needed 6h 30 days Active Motrin Active Ibuprofen 600 MG Orally Three times a day 1 tablet with food or milk as needed 8h May, Not-Taking Mucinex 600 MG Orally every 12 hrs 1 tablet as needed 12h Active Cephalexin 500 MG Orally every 6 hrs 1 capsule 6h Not-Taking Fluconazole 150 MG Orally now and may repeat in 3 days 1 tablet May, Not-Taking Probiotic Not-Taking Bactroban Not-Taking Omeprazole 20 MG TAKE ONE CAPSULE BY MOUTH ONCE DAILY BEFORE MEALS Jun, 30 Active RESULTS No Results PROCEDURES No Known [...]
--- OUTSIDE RECORDS SUMMARY | 2019-01-22 21:20 | XMS REPORT ---
Author Author KVNG MERCHANT Organization [facility] Address [address] [place] [address] Care Team Providers Care Cyber Ops Planner Name Role Phone KVNG MERCHANT Unavailable PROBLEMS Type Condition ICD9-CM Code ATS68-FS Code Onset Dates Condition Status SNOMED Code Problem Family history of diabetes mellitus Z83.3 Active 929657754 Problem Hot flashes N95.1 Active 194796215 Problem Excessive and frequent menstruation with irregular cycle N92.1 Active 961795347 Problem Diverticulitis K57.92 Active 958240744 Problem Gastroesophageal reflux disease with esophagitis K21.0 Active 070334249 Problem Mitral valve prolapse I34.1 Active 733064148 Problem Perimenopausal N95.1 Active 161953211789818 Problem Tachycardia R00.0 Active 9996795 Problem Abnormal uterine bleeding (AUB) N93.9 Active 18485265105879 Problem History of diverticulitis Z87.19 Active 205717844582770 Problem History of colon polyps Z86.010 Active 569178761 Problem Generalized anxiety disorder F41.1 Active 470297755 Problem Dense breast tissue R92.2 Active 765957915 Problem Hypertension I10 Active 91144441 Problem History of ovarian cyst Z87.42 Active 20602002 ALLERGIES No Information ENCOUNTERS Encounter Location Date Diagnosis [facility] [address] [id number], [place] [address] Jan, [facility] [address] [id number], [place] [address] Jan, [facility] [address] [id number], [place] [address] December, Generalized anxiety disorder F41.1 [facility] [address] [id number] [address] Oct, Encounter for dental examination Z01.20 [facility] [address] [id number], [place] [address] 06 Oct, 2017 Encounter for dental examination Z01.20 [facility] [address] [id number], [place] [address] Oct, Dental examination Z01.20 [facility] [address], [place] [address] Oct, Generalized anxiety disorder F41.1 [facility] [address] [id number], [place] [address] Aug, Dental examination Z01.20 [facility] [id number] [place] [address] Aug, Generalized anxiety disorder F41.1 [facility] [id number] [place] [address] Aug, [facility] [address] [place] [id number] [place] [address] Aug, Encounter for dental examination Z01.20 [facility] [id number] [place] [address] Aug, Subacute maxillary sinusitis J01.00 [facility] [id number], [place] [address] Jul, Dental examination Z01.20 [facility] [id number] [place] [address] Jul, Generalized anxiety disorder F41.1 [facility] [address] [place] [address] Jul, Diverticulitis K57.92 [facility] [id number] [place] [address] Jun, Encounter for immunization Z23 [facility] [address] [id number], [place] [address] Jun, Dental examination Z01.20 [facility] [address] [id number], [place] [address] 14 Jun, 2017 Generalized anxiety disorder F41.1 [facility] [address] [id number], [place] [address] Jun, Dental examination Z01.20 [facility] [id number] [place] [address] May, [facility] [id number] [place] [address] [id number] May, Dental examination Z01.20 [facility] [address] [id number] May, Dental examination Z01.20 [facility] [address] [place] [id number] [place] [address] May, Dental examination Z01.20 [facility] [id number] [place] [address] May, [facility] [id number] [place] [address] May, Generalized anxiety disorder F41.1 [facility] [id number] [place] [address] May, Localized edema R60.0 ; Yeast vaginitis B37.3 and Gastroesophageal reflux disease with esophagitis K21.0 [facility] [address] [place] [id number] Apr, Dental examination Z01.20 [facility] [address] [id number], [place] [address] Apr, Dental examination Z01.20 [facility] [id number] [place] [address] 05 Apr, [address] [facility] [id number] [place] [address] Mar, Dyspepsia R10.13 [facility] [address] [id number], [place] [address] Mar, Generalized anxiety disorder F41.1 [facility] [address] [id number], [place] [address] Mar, Encounter for dental examination Z01.20 [facility] [id number] [place] [address] [id number] Mar, [facility] [id number] [place] [id number] Mar, Dental examination Z01.20 [facility] [id number] [place] [address] Feb, Hypertension I10 and Tachycardia R00.0 [facility] [address] [id number], [place] [address] Feb, [facility] [id number] [place] [address] Feb, Generalized anxiety disorder F41.1 [facility] [id number] [place] [address] [id number] Feb, Dental examination Z01.20 [facility] [address], [place] [address] Jan, Generalized anxiety disorder F41.1 [facility] [address] [place] [address] December, Generalized anxiety disorder F41.1 [facility] [address] [id number] December, Encounter for dental examination Z01.20 [facility] [id number] [place] [address] Nov, [facility] [address] [place] [address] Nov, [facility] [address] [place] [address] Nov, Generalized anxiety disorder F41.1 [place] [id number] [place] [address] 30 Oct, 2016 [facility] [address] [place] [address] [id number] Oct, Dental examination Z01.20 [place] [address] [address] Oct, Vaginal dryness N89.8 [place] [id number] [place] [address] Oct, Pseudoseizures F44.5 [place] [id number] [place] [address] Oct, Generalized anxiety disorder F41.1 [place] [id number] [place] [address] Sep, Abnormal uterine bleeding (AUB) N93.9 ; Vaginal dryness N89.8 and Screening breast examination Z12.39 [place] [id number] [place] [address] Sep, Dental examination Z01.20 [place] [id number] [place] [address] Sep, Generalized anxiety disorder F41.1 [place] [id number] [place] [address] 06 Sep, 2016 Unspecified ovarian cyst, right side N83.201 ; Unspecified ovarian cyst, left side N83.202 ; Yeast infection of the vagina B37.3 ; Mitral valve prolapse I34.1 and Hypertension I10 [place] [id number] [place] [address] Aug, Generalized anxiety disorder F41.1 [place] [id number] [place] [address] Jul, [facility] [address] [place] [address] Jul, Generalized anxiety disorder F41.1 [facility] [id number] [place] [address] Jun, Generalized anxiety disorder F41.1 [facility] [id number] [place] [address] May, Encounter for immunization Z23 [facility] [address] [address] 17 May, 2016 Generalized anxiety disorder F41.1 and Depressive disorder, not elsewhere classified F32.9 [facility] [id number] [place] [address] 28 Apr, [address] [facility] [id number] [place] [address] Apr, Cervicalgia M54.2 [facility] [id number] [place] [address] 12 Apr, [address] [facility] [id number] [place] [address] 09 Mar, 2016 Generalized anxiety disorder F41.1 and Depressive disorder, not elsewhere classified F32.9 [facility] [id number] [place] [phone] Feb, Visit for dental examination Z01.20 [facility] [id number] [place] [address] Feb, Pseudoseizures F44.5 ; Migraine without status migrainosus, not intractable, unspecified migraine type G43.909 and Essential hypertension I10 [facility] [id number] [place] [address] [id number] Feb, Dental examination Z01.20 [facility] [id number] [place] [address] Feb, Generalized anxiety disorder F41.1 and Depressive disorder, not elsewhere classified F32.9 [place] [id number] [place] [address] Jan, Tachycardia R00.0 [place] [id number] [place] [address] December, Eustachian tube dysfunction, bilateral H69.83 [place] [address] [address] December, Generalized anxiety disorder F41.1 and Depressive disorder, not elsewhere classified F32.9 [place] [address] [address] Nov, [place] [id number] [place] [address] Nov, [place] [id number] [place] [address] Nov, Hypertension I10 ; Onychomycosis B35.1 ; [...] and Complex cyst of left ovary N83.29 [facility] [address] [place] [address] Nov, Sinusitis J32.9 [place] [id number] [place] [address] Oct, Complex cyst of left ovary N83.29 [facility] [id number] [place] [address] Oct, Onychomycosis B35.1 [facility] [id number] [place] [address] [id number] 17 Oct, 2016 Dental examination Z01.20 [place] [address] [address] 09 Oct, 2016 Well woman exam Z01.419 [...] History of colon polyps Z86.010 [place] [id number] [place] [address] Oct, Generalized anxiety disorder F41.1 and Depressive disorder, not elsewhere classified F32.9 [place] [address] [address] Sep, Hypertension I10 and Onychomycosis B35.1 [place] [address] [address] 16 Sep, 2015 Skin tags, multiple acquired L91.8 [place] [id number] [place] [address] Aug, [place] [id number] [place] [address] Aug, [place] [id number] [place] [address] Aug, [place] [address] [address] Aug, Generalized anxiety disorder F41.1 and Depressive disorder, not elsewhere classified F32.9 [place] [address] [address] Jul, Skin lesion L98.9 [facility] [address] [place] [address] Jun, Generalized anxiety disorder F41.1 and Depressive disorder, not elsewhere classified F32.9 [facility] [id number] [place] [address] Jun, [facility] [id number] [place] [address] Jun, Generalized anxiety disorder F41.1 [facility] [id number] [place] [address] May, Encounter for immunization Z23 and Right shoulder pain M25.511 [facility] [id number] [place] [address] Apr, [facility] [id number] [place] [address] Apr, Generalized anxiety disorder 300.02 and Depressive disorder, not elsewhere classified 311 [facility] [id number] [place] [address] [id number] Mar, Dental examination V72.2 [facility] [id number] [place] [address] Mar, Generalized anxiety disorder 300.02 and Depressive disorder, not elsewhere classified [address] 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 [address] [place] [address] Feb, Generalized anxiety disorder 300.02 and Depressive disorder, not elsewhere classified 311 [facility] [id number] [place] [address] [id number] Feb, Dental examination V72.2 [facility] [id number] [place] [address] Jan, Generalized anxiety disorder 300.02 and Depressive disorder, not elsewhere classified 311 [facility] [address], [place] [address] Jan, [facility] [address], [place] [address] December, Generalized anxiety disorder 300.02 and Depressive disorder, not elsewhere classified [address] [facility] [address], [place] [address] December, Major depressive disorder, recurrent, unspecified 296.30 and Panic disorder with agoraphobia 300.21 [facility] [address], [place] [address] Nov, [facility] [id number], [place] [address] Nov, [facility] [address], [place] [address] Oct, [facility] [address], [place] [address] Oct, [facility] [address], [place] [address] Oct, [facility] [address], [place] [address] Oct, [facility] [address], [place] [address] Sep, [facility] [address], [place] [address] Sep, [facility] [address], [place] [address] Sep, [facility] [address], [place] [address] Sep, [facility] [address], [place] [address] Sep, [facility] [place] [facility] [address] [id number] [place] [address] Sep, 2014 [facility] [place] [facility] [address] [id number] [place] [address] Sep, 2014 [facility] [place] [facility] [address] [id number] [place] [address] Sep, 2014 [facility] [place] [facility] [address] [id number] [place] [address] Sep, 2014 [facility] [place] [facility] [address] [id number] [place] [address] Sep, [facility] [place] [facility] [address] [id number] [place] [address] Aug, [facility] [place] [facility] [address] [id number] [place] [address] Aug, [facility] [place] [facility] [address] [id number] [place] [address] Jul, [facility] [place] [facility] [address] [id number] [place] [address] Jul, [facility] [place] [facility] [address] [id number] [place] [address] 18 Jul, 2014 [facility] [place] [facility] [address] [id number], [place] [address] 18 Jul, 2014 [facility] [place] [facility] [address] [id number], [place] [address] Jul, [facility] [place] [facility] [address] [id number] [place] [address] Jul, [facility] [place] [facility] [address] [id number] [place] [address] 05 Jul, 2014 [facility] [place] [facility] [address] [id number] [place] [address] 05 Jul, 2014 [facility] [place] [facility] [address] [id number] [place] [address] Jul, [facility] [place] [facility] [address] [id number] [place] [address] Jul, [facility] [place] [facility] [address] [id number] [place] [address] Jul, [facility] [place] [facility] [address] [id number] [place] [address] Jul, [facility] [place] [facility] [address] [id number] [place] [address] Jun, [facility] [place] [facility] [address] [id number] [place] [address] Jun, [facility] [place] [facility] [address] [id number] [place] [address] May, [facility] [place] [facility] [address] [id number] [place] [address] May, [facility] [place] [facility] [address] [id number] [place] [address] May, [facility] [place] [facility] [address] [id number] [place] [address] May, [facility] [place] [facility] [address] [id number] [place] [address] May, [facility] [place] [facility] [address] [id number] [place] [address] May, [facility] [place] [facility] [address] [id number], [place] [address] May, [facility] [place] [facility] [address] [id number] [place] [address] May, [facility] [place] [facility] [address] [id number] [place] [address] May, [facility] [place] [facility] [address] [id number], [place] [address] May, [facility] [place] [facility] [address] [id number] [place] [address] May, [facility] [place] [facility] [address] [id number] [place] [address] May, [facility] [place] [facility] [address] [id number] [place] [address] Apr, [facility] [place] [facility] [address] [id number] [place] [address] Apr, [facility] [place] [facility] [address] [id number] [place] [address] Apr, [facility] [place] [facility] [address] [id number] [place] [address] Apr, [facility] [place] [facility] [address] [id number] [place] [address] Apr, [facility] [place] [facility] [address] [id number] [place] [address] Apr, [facility] [place] [facility] [address] [id number] [place] [address] Feb, [facility] [place] [facility] [address] [id number] [place] [address] Feb, [facility] [place] [facility] [address] [id number] [place] [address] Feb, [facility] [place] [facility] [address] [id number] [place] [address] Feb, [facility] [place] [facility] [address] [id number] [place] [address] Feb, [facility] [place] [facility] [address] [id number] [place] [address] Feb, [facility] [place] [facility] [address] [id number] [place] [address] Jan, [facility] [place] [facility] [address] [id number] [place] [address] Jan, [facility] [place] [facility] [address] [id number] [place] [address] Jan, [facility] [place] [facility] [address] [id number] [place] [address] Jan, [facility] [place] [facility] [address] [id number] [place] [address] Jan, [facility] [place] [facility] [address] [id number] [place] [address] Jan, [facility] [place] [facility] [address] [id number] [place] [address] Jan, [facility] [place] [facility] [address] [id number] [place] [address] Jan, [facility] [place] [facility] [address] [id number] [place] [address] December, [facility] [place] [facility] [address] [id number] [place] [address] December, [facility] [place] [facility] [address] [id number] [place] [address] December, [facility] [place] [facility] [address] [id number] [place] [address] December, [facility] [place] [facility] [address] [id number] [place] [address] Nov, [facility] [place] [facility] [address] [id number] [place] [address] Nov, [facility] [place] [facility] [address] [id number] [place] [address] Nov, [facility] [place] [facility] [address] [id number] [place] [address] Nov, [facility] [place] [facility] [address] [id number] [place] [address] Nov, [facility] [place] [facility] [address] [id number] [place] [address] Nov, [facility] [place] [facility] [address] [id number] [place] [address] Nov, [facility] [place] [facility] [address] [id number] [place] [address] Nov, [facility] [place] [facility] [address] [id number] [place] [address] Oct, [facility] [place] [facility] [address] [id number] [place] [address] Oct, [facility] [place] [facility] [address] [id number] [place] [address] Sep, [facility] [place] [facility] [address] [id number] [place] [address] Sep, [facility] [address] [id number] [place] [id number] Sep, [facility] [address] [id number] [place] [address] Sep, [facility] [place] [facility] [address] [id number] [place] [address] Sep, [facility] [place] [facility] [address] [id number] [place] [address] Sep, [facility] [place] [facility] [address] [id number] [place] [address] Aug, [facility] [place] [facility] [address] [id number] [place] [address] Aug, [facility] [place] [facility] [address] [id number] [place] [address] Aug, [facility] [place] [facility] [address] [id number] [place] [address] Aug, [facility] [place] [facility] [address] [id number] [place] [address] Jul, [facility] [place] [facility] [address] [id number] [place] [address] Jul, [facility] [place] [facility] [address] [id number] [place] [address] Jul, [facility] [place] [facility] [address] [id number] [place] [address] Jul, [facility] [place] [facility] [address] [id number] [place] [address] Jun, [facility] [place] [facility] [address] [id number] [place] [address] Jun, [facility] [place] [facility] [address] [id number] [place] [address] May, [facility] [place] [facility] [address] [id number] [place] [address] May, [facility] [place] [facility] [address] [id number] [place] [address] May, [facility] [place] [facility] [address] [id number] [place] [address] May, [facility] [place] [facility] [address] [id number] [place] [address] May, [facility] [place] [facility] [address] [id number], [place] [address] 17 Apr, 2013 [facility] [place] [facility] [address] [id number], [place] [address] 10 Apr, 2013 [facility] [place] [facility] [address] [id number] [place] [address] 29 Mar, 2013 [facility] [place] [facility] [address] [id number], [place] [address] Mar, [facility] [place] [facility] [address] [id number] [place] [address] 15 Mar, 2013 [facility] [place] [facility] [address] [id number] [place] [address] Mar, [facility] [address] [id number] [place] [address] Feb, [facility] [place] [facility] [address] [id number] [place] [address] Feb, [facility] [address] [id number] [place] [address] Feb, [facility] [place] [facility] [address] [id number] [place] [address] Feb, [facility] [address] [id number] [place] [address] Feb, [facility] [place] [facility] [address] [id number] [place] [address] Jan, [facility] [address] [id number] [place] [address] Jan, [facility] [place] [facility] [address] [id number] [place] [address] Jan, [facility] [place] [facility] [address] [id number] [place] [address] Jan, [facility] [place] [facility] [address] [id number] [place] [address] Jan, [facility] [place] [facility] [address] [id number] [place] [address] December, [facility] [place] [facility] [address] [id number] [place] [address] December, [facility] [place] [facility] [address] [id number] [place] [address] Nov, [facility] [place] [facility] [address] [id number] [place] [address] Nov, [facility] [place] [facility] [address] [id number] [place] [address] Oct, [facility] [place] [facility] [address] [id number] [place] [address] Oct, [facility] [address] [id number] [place] [address] 05 Oct, 2012 [facility] [address] [id number] [place] [address] 14 Sep, 2012 [facility] [address] [id number] [place] [address] 24 Aug, 2012 [facility] [address] [id number] [place] [address] 16 Aug, 2012 [facility] [address] [id number] [place] [address] Aug, [facility] [address] [id number] [place] [address] Aug, [facility] [address] [id number] [place] [address] Jul, [facility] [address] [id number] [place] [address] Jul, [facility] [address] [id number] [place] [address] Jul, [facility] [address] [id number] [place] [address] Jul, [facility] [address] [id number] [place] [address] Jul, [facility] [address] [id number] [place] [address] Jul, [facility] [address] [id number] [place] [address] Jul, [facility] [address] [id number] [place] [address] Jul, [facility] [address] [id number], [place] [address] Jun, [facility] [place] [facility] [address] [id number] [place] [address] Jun, [facility] [place] [facility] [address] [id number] [place] [address] Jun, [facility] [place] [facility] [address] [id number] [place] [address] Jun, [facility] [place] [facility] [address] [id number] [place] [address] Jun, [facility] [place] [facility] [address] [id number] [place] [address] Jun, [facility] [place] [facility] [address] [id number] [place] [address] May, [facility] [place] [facility] [address] [id number] [place] [address] May, [facility] [place] [facility] [address] [id number] [place] [address] May, [facility] [place] [facility] [address] [id number] [place] [address] May, [facility] [place] [facility] [address] [id number] [place] [address] Apr, [facility] [place] [facility] [address] [id number], [place] [address] Apr, [facility] [place] [facility] [address] [id number], [place] [address] Mar, [facility] [place] [facility] [address] [id number] [place] [address] Jan, [facility] [place] [facility] [address] [id number] [place] [address] Jan, [facility] [place] [facility] [address] [id number] [place] [address] Jan, [facility] [place] [facility] [address] [id number] [place] [address] 15 Jan, 2012 [facility] [address] [id number] [place] [address] 14 Jan, 2012 [facility] [place] [facility] [address] [id number] [place] [address] 14 Jan, 2012 [facility] [address] [id number] [place] [address] 07 Jan, 2012 [facility] [address] [id number] [place] [address] December, [facility] [address] [id number] [place] [address] December, [facility] [address] [id number] [place] [address] December, [facility] [address] [id number] [place] [address] December, [facility] [address] [id number] [place] [address] Nov, [facility] [address] [id number] [place] [address] 05 Nov, 2011 [facility] [address] [id number] [place] [address] 29 Oct, 2011 [facility] [place] [facility] [address] [id number] [place] [address] 28 Oct, 2011 [facility] [address] [id number] [place] [address] 15 Oct, 2011 [facility] [place] [facility] [address] [id number] [place] [address] Sep, [facility] [place] [facility] [address] [id number] [place] [address] Sep, [facility] [place] [facility] [address] [id number] [place] [address] Sep, [facility] [place] [facility] [address] [id number] [place] [address] Aug, [facility] [place] [facility] [address] [id number] [place] [address] Aug, [facility] [place] [facility] [address] [id number] [place] [address] Aug, [facility] [place] [facility] [address] [id number] [place] [address] Aug, [facility] [place] [facility] [address] [id number] [place] [address] Aug, [facility] [place] [facility] [address] [id number] [place] [address] Aug, [facility] [place] [facility] [address] [id number] [place] [address] Aug, [facility] [place] [facility] [address] [id number] [place] [address] Jul, [facility] [place] [facility] [address] [id number] [place] [address] Jul, [facility] [place] [facility] [address] [id number] [place] [address] Jun, [facility] [place] [facility] [address] [id number], [place] [address] 28 Jun, 2011 [facility] [place] [facility] [address] [id number], [place] [address] 17 Jun, 2011 [facility] [place] [facility] [address] [id number] [place] [address] 15 Jun, 2011 [facility] [place] [facility] [address] [id number] [place] [address] 14 Jun, 2011 [facility] [place] [facility] [address] [id number] [place] [address] 14 Jun, 2011 [facility] [place] [facility] [address] [id number] [place] [address] 07 Jun, 2011 [facility] [place] [facility] [address] [id number] [place] [address] Jun, [facility] [place] [facility] [address] [id number] [place] [address] Jun, [facility] [place] [facility] [address] [id number] [place] [address] Jun, [facility] [place] [facility] [address] [id number] [place] [address] May, [facility] [place] [facility] [address] [id number] [place] [address] May, [facility] [place] [facility] [address] [id number] [place] [address] May, [facility] [place] [facility] [address] [id number] [place] [address] May, [facility] [place] [facility] [address] [id number] [place] [address] May, [facility] [place] [facility] [address] [id number] [place] [address] May, [facility] [place] [facility] [address] [id number] [place] [address] Feb, [facility] [place] [facility] [address] [id number] [place] [address] December, [facility] [place] [facility] [address] [id number] [place] [address] Jul, [facility] [place] [facility] [address] [id number] [place] [address] Jul, [facility] [place] [facility] [address] [id number] [place] [address] Jul, [facility] [place] [facility] [address] [id number] [place] [address] Jul, [facility] [id number] [address] Jun, [facility] [id number] [address] Jul, [facility] [id number] [address] Jul, [facility] [id number] [address] Jul, [facility] [id number] [address] Jul, [facility] [id number] [address] Jul, [facility] [id number] [address] Jul, [facility] [id number] [address] Jan, [facility] [id number], [place] [address] Sep, [facility] [id number], [place] [address] Sep, IMMUNIZATIONS No Known Immunizations SOCIAL HISTORY Never Assessed REASON FOR VISIT followup Anxiety PLAN OF CARE Activity Details Follow Up 4 Weeks Reason: Follow-up VITAL SIGNS MEDICATIONS Unknown Medications RESULTS No Results PROCEDURES Procedure Date Ordered Result Body Site Psychotherapy, patient &/family, 45 minutes, established patient Jun 05, 2017 INSTRUCTIONS MEDICATIONS ADMINISTERED No Known Medications [...]
--- OUTSIDE RECORDS SUMMARY | 2019-01-22 21:21 | XMS REPORT ---
Author Author LETTY WILKINS Organization [facility] Address [address] [place] [address] Care Team Providers Care Rope Rider Name Role Phone LETTY WILKINS Unavailable PROBLEMS Type Condition ICD9-CM Code EME79-FS Code Onset Dates Condition Status SNOMED Code Problem Family history of diabetes mellitus Z83.3 Active 559492112 Problem Hot flashes N95.1 Active 060708827 Problem Excessive and frequent menstruation with irregular cycle N92.1 Active 866242915 Problem Diverticulitis K57.92 Active 102031451 Problem Gastroesophageal reflux disease with esophagitis K21.0 Active 573470931 Problem Mitral valve prolapse I34.1 Active 874724909 Problem Perimenopausal N95.1 Active 923998252620753 Problem Tachycardia R00.0 Active 1774262 Problem Abnormal uterine bleeding (AUB) N93.9 Active 47711245268381 Problem History of diverticulitis Z87.19 Active 561066348523190 Problem History of colon polyps Z86.010 Active 896094213 Problem Generalized anxiety disorder F41.1 Active 262986033 Problem Dense breast tissue R92.2 Active 055382894 Problem Hypertension I10 Active 63653455 Problem History of ovarian cyst Z87.42 Active 11936537 ALLERGIES No Information ENCOUNTERS Encounter Location Date Diagnosis [facility] [address] [address] Feb, [facility] [address] [address] Jan, Hypertension I10 and Acute non-recurrent maxillary sinusitis J01.00 [facility] [id number] [address] December, [facility] [id number] [place] [address] December, Hypertension I10 [facility] [address] [id number] [address] December, Generalized anxiety disorder F41.1 [facility] [address] [id number] [address] 16 Oct, 2017 Encounter for dental examination Z01.20 [facility] [address] [id number] [place] [address] 06 Oct, 2017 Encounter for dental examination Z01.20 [facility] [address] [id number] [place] [address] 02 Oct, 2017 Dental examination Z01.20 [facility] [address] [facility] [id number] [place] [address] Oct, Generalized anxiety disorder F41.1 [facility] [address] [id number] [place] [address] Aug, Dental examination Z01.20 [facility] [address] [facility] [id number] [place] [address] Aug, Generalized anxiety disorder F41.1 [facility] [id number] [place] [address] Aug, [facility] [address] [id number] [place] [address] Aug, Encounter for dental examination Z01.20 [facility] [id number] [place] [address] Aug, Subacute maxillary sinusitis J01.00 [facility] [address] [id number] [place] [address] Jul, Dental examination Z01.20 [facility] [address] [facility] [id number] [place] [address] Jul, Generalized anxiety disorder F41.1 [facility] [id number] [place] [address] Jul, Diverticulitis K57.92 [facility] [address], [place] [address] Jun, Encounter for immunization Z23 [facility] [address] [id number] [place] [address] 22 Jun, 2017 Dental examination Z01.20 [facility] [id number] [place] [address] 14 Jun, 2017 Generalized anxiety disorder F41.1 [facility] [address] [id number] [place] [address] 07 Jun, 2017 Dental examination Z01.20 [facility] [id number] [place] [address] May, [facility] [id number] [place] [address] [id number] May, Dental examination Z01.20 [facility] [id number] [place] [address] [id number] May, Dental examination Z01.20 [facility] [id number] [place] [address] May, Dental examination Z01.20 [facility] [id number] [place] [address] May, [facility] [id number] [place] [address] May, Generalized anxiety disorder F41.1 [facility] [address], [place] [address] 05 May, 2017 Localized edema R60.0 ; Yeast vaginitis B37.3 and Gastroesophageal reflux disease with esophagitis K21.0 [facility] [address] [id number] [id number] Apr, Dental examination Z01.20 [facility] [address] [id number] [place] [address] 21 Apr, 2017 Dental examination Z01.20 [facility] [id number] [place] [address] 05 Apr, 2017 Dental examination Z01.20 [facility] [id number] [place] [address] Mar, Dyspepsia R10.13 [facility] [id number] [place] [address] Mar, Generalized anxiety disorder F41.1 [facility] [id number] [place] [address] Mar, Encounter for dental examination Z01.20 [facility] [id number] [place] [address] [id number] Mar, [facility] [id number] [place] [address] [id number] Mar, Dental examination Z01.20 [facility] [id number] [place] [address] Feb, Hypertension I10 and Tachycardia R00.0 [facility] [address] [id number] [place] [address] Feb, [facility] [id number] [place] [address] Feb, Generalized anxiety disorder F41.1 [facility] [id number] [place] [address] [id number] Feb, Dental examination Z01.20 [facility] [id number] [place] [address] Jan, Generalized anxiety disorder F41.1 [facility] [id number] [place] [address] December, Generalized anxiety disorder F41.1 [facility] [id number] [place] [id number] December, Encounter for dental examination Z01.20 [facility] [id number] [place] [address] Nov, [facility] [id number] [place] [address] Nov, [facility] [id number] [place] [address] Nov, Generalized anxiety disorder F41.1 [facility] [id number] [place] [address] Oct, [facility] [id number] [place] [address] [id number] Oct, Dental examination Z01.20 [facility] [id number] [place] [address] Oct, Vaginal dryness N89.8 [facility] [id number] [place] [address] Oct, Pseudoseizures F44.5 [facility] [id number] [place] [address] Oct, Generalized anxiety disorder F41.1 [facility] [id number] [place] [address] 28 Sep, 2016 Abnormal uterine bleeding (AUB) N93.9 ; Vaginal dryness N89.8 and Screening breast examination Z12.39 [facility] [id number] [place] [address] Sep, Dental examination Z01.20 [facility] [id number] [place] [address] Sep, Generalized anxiety disorder F41.1 [facility] [id number] [place] [address] 06 Sep, 2016 Unspecified ovarian cyst, right side N83.201 ; Unspecified ovarian cyst, left side N83.202 ; Yeast infection of the vagina B37.3 ; Mitral valve prolapse I34.1 and Hypertension I10 [facility] [id number] [place] [address] 18 Aug, 2016 Generalized anxiety disorder F41.1 [facility] [id number] [place] [address] 28 Jul, 2016 [facility] [id number] [place] [address] Jul, Generalized anxiety disorder F41.1 [facility] [id number] [place] [address] 15 Jun, 2016 Generalized anxiety disorder F41.1 [facility] [id number] [place] [address] 28 May, 2016 Encounter for immunization Z23 [facility] [id number] [place] [address] 17 May, 2016 Generalized anxiety disorder F41.1 and Depressive disorder, not elsewhere classified F32.9 [facility] [id number] [place] [address] 28 Apr, 2016 Hypertension I10 [facility] [id number] [place] [address] 22 Apr, 2016 Cervicalgia M54.2 [facility] [id number] [place] [address] Apr, Cervicalgia M54.2 [facility] [id number] [place] [address] 09 Mar, 2016 Generalized anxiety disorder F41.1 and Depressive disorder, not elsewhere classified F32.9 [facility] [id number] [place] [address] [id number] 14 Feb, 2016 Visit for dental examination Z01.20 [facility] [address], [place] [address] 11 Feb, 2016 Pseudoseizures F44.5 ; Migraine without status migrainosus, not intractable, unspecified migraine type G43.909 and Essential hypertension I10 [facility] [id number] [place] [address] [id number] 06 Feb, 2016 Dental examination Z01.20 [facility] [id number] [place] [address] 05 Feb, 2016 Generalized anxiety disorder F41.1 and Depressive disorder, not elsewhere classified F32.9 [facility] [id number] [place] [address] Jan, Tachycardia R00.0 [facility] [id number] [place] [address] December, Eustachian tube dysfunction, bilateral H69.83 [facility] [id number] [place] [address] December, Generalized anxiety disorder F41.1 and Depressive disorder, not elsewhere classified F32.9 [facility] [id number] [place] [address] 29 Nov, 2015 [place] [facility] [id number] [place] [address] 28 Nov, 2015 [place] [facility] [id number] [place] [address] 20 Nov, 2015 Hypertension I10 ; Onychomycosis [...] and Complex cyst of left ovary N83.29 [facility] [id number] [place] [address] 14 Nov, 2016 Sinusitis J32.9 [place] [facility] [address] [address] Oct, Complex cyst of left ovary N83.29 [place] [address] [address] Oct, Onychomycosis B35.1 [facility] [address] [id number] Oct, Dental examination Z01.20 [place] [address] [address] 09 Oct, 2015 Well woman exam Z01.419 [...] R92.2 and History of colon polyps Z86.010 [place] [address] [address] Oct, Generalized anxiety disorder F41.1 and Depressive disorder, not elsewhere classified F32.[address] [address] Sep, Hypertension I10 and Onychomycosis B35.1 [place] [address] [address] Sep, Skin tags, multiple acquired L91.8 [place] [address] [address] Aug, [place] [address] [address] Aug, [place] [address] [address] Aug, [facility] [id number] [place] [address] Aug, Generalized anxiety disorder F41.1 and Depressive disorder, not elsewhere classified F32.9 [facility] [id number] [place] [address] Jul, Skin lesion L98.9 [facility] [id number] [place] [address] Jun, Generalized anxiety disorder F41.1 and Depressive disorder, not elsewhere classified F32.9 [facility] [id number] [place] [address] Jun, [facility] [id number] [place] [address] Jun, Generalized anxiety disorder F41.1 [place] [address] [address] May, Encounter for immunization Z23 and Right shoulder pain M25.511 [facility] [id number] [place] [address] Apr, [facility] [id number] [place] [address] Apr, Generalized anxiety disorder 300.02 and Depressive disorder, not elsewhere classified 311 [facility] [address] [place] [address] [id number] Mar, Dental examination V72.2 [facility] [id number] [place] [address] Mar, Generalized anxiety disorder 300.02 and Depressive disorder, not elsewhere classified 311 [facility] [address] [address] Mar, Depression, major, recurrent, 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.35 and 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 [facility] [address] [address] Feb, Generalized anxiety disorder 300.02 and Depressive disorder, not elsewhere classified 311 [facility] [id number] [id number] Feb, Dental examination V72.2 [facility] [address], [place] [address] 09 Jan, 2015 Generalized anxiety disorder 300.02 and Depressive disorder, not elsewhere classified 311 [facility] [id number] [place] [address] Jan, [facility] [address], [place] [address] December, Generalized anxiety disorder 300.02 and Depressive disorder, not elsewhere classified 311 [facility] [address], [place] [address] December, Major depressive disorder, recurrent, unspecified 296.30 and Panic disorder with agoraphobia 300.21 [facility] [address], [place] [address] Nov, [facility] [address], [place] [address] Nov, [facility] [address], [place] [address] Oct, [facility] [address], [place] [address] Oct, [facility] [address], [place] [address] Oct, [facility] [address], [place] [address] Oct, [facility] [address], [place] [address] Sep, [facility] [address], [place] [address] Sep, [facility] [id number] [place] [address] Sep, 2014 [facility] [place] [facility] [address] [id number] [place] [address] Sep, 2014 [facility] [place] [facility] [address] [id number] [place] [address] Sep, 2014 [facility] [place] [facility] [address] [id number] [place] [address] Sep, 2014 [facility] [place] [facility] [address] [id number] [place] [address] Sep, 2014 [facility] [place] [facility] [address] [id number] [place] [address] Sep, 2014 [facility] [place] [facility] [address] [facility] [id number] [place] [address] Sep, 2014 [facility] [place] [facility] [address] [facility] [id number] [place] [address] Sep, 2014 [facility] [place] [facility] [address] [facility] [id number] [place] [address] Aug, [facility] [place] [facility] [address] [facility] [id number] [place] [address] Aug, [facility] [place] [facility] [address] [facility] [id number] [place] [address] Jul, [facility] [place] [facility] [address] [id number] [place] [address] Jul, [facility] [place] [facility] [address] [id number] [place] [address] 18 Jul, 2014 [facility] [place] [facility] [address] [id number] [place] [address] Jul, [facility] [place] [facility] [address] [facility] [id number] [place] [address] Jul, [facility] [place] [facility] [address] [id number] [place] [address] Jul, [facility] [place] [facility] [address] [id number] [place] [address] Jul, [facility] [place] [facility] [address] [id number] [place] [address] Jul, [facility] [place] [facility] [address] [id number] [place] [address] Jul, [facility] [place] [facility] [address] [id number] [place] [address] Jul, [facility] [place] [facility] [address] [id number] [place] [address] Jul, [facility] [place] [facility] [address] [id number] [place] [address] Jul, [facility] [place] [facility] [address] [id number] [place] [address] Jun, [facility] [place] [facility] [address] [id number] [place] [address] Jun, [facility] [place] [facility] [address] [id number] [place] [address] May, [facility] [place] [facility] [address] [id number] [place] [address] May, [facility] [place] [facility] [address] [id number] [place] [address] May, [facility] [place] [facility] [address] [id number] [place] [address] May, [facility] [place] [facility] [address] [id number] [place] [address] May, [facility] [place] [facility] [address] [id number] [place] [address] May, [facility] [place] [facility] [address] [id number] [place] [address] May, [facility] [place] [facility] [address] [id number] [place] [address] May, [facility] [place] [facility] [address] [id number] [place] [address] May, [facility] [place] [facility] [address] [id number] [place] [address] May, [facility] [place] [facility] [address] [id number] [place] [address] May, [facility] [place] [facility] [address] [id number] [place] [address] May, [facility] [place] [facility] [address] [id number] [place] [address] Apr, [facility] [place] [facility] [address] [id number] [place] [address] Apr, [facility] [place] [facility] [address] [id number] [place] [address] Apr, 2013 [facility] [place] [facility] [address] [id number] [place] [address] Apr, [facility] [place] [facility] [address] [id number] [place] [address] Apr, [facility] [place] [facility] [address] [id number] [place] [address] Apr, [facility] [place] [facility] [address] [id number] [place] [address] Feb, [facility] [place] [facility] [address] [id number] [place] [address] Feb, [facility] [place] [facility] [address] [id number] [place] [address] Feb, [facility] [place] [facility] [address] [id number] [place] [address] Feb, [facility] [place] [facility] [address] [id number] [place] [address] Feb, [facility] [place] [facility] [address] [id number] [place] [address] Feb, [facility] [place] [facility] [address] [id number] [place] [address] Jan, [facility] [place] [facility] [address] [id number] [place] [address] Jan, [facility] [place] [facility] [address] [id number] [place] [address] Jan, [facility] [place] [facility] [address] [id number] [place] [address] Jan, [facility] [place] [facility] [address] [id number] [place] [address] Jan, [facility] [place] [facility] [address] [id number] [place] [address] Jan, [facility] [place] [facility] [address] [id number] [place] [address] Jan, [facility] [place] [facility] [address] [id number] [place] [address] Jan, [facility] [place] [facility] [address] [id number] [place] [address] December, [facility] [place] [facility] [address] [id number] [place] [address] December, [facility] [place] [facility] [address] [id number], [place] [address] December, [facility] [place] [facility] [address] [id number] [place] [address] December, [facility] [place] [facility] [address] [id number] [place] [address] Nov, [facility] [place] [facility] [address] [id number] [place] [address] Nov, [facility] [place] [facility] [address] [id number], [place] [address] Nov, [facility] [place] [facility] [address] [id number] [place] [address] Nov, [facility] [place] [facility] [address] [id number] [place] [address] Nov, [facility] [place] [facility] [address] [id number] [place] [address] Nov, [facility] [place] [facility] [address] [id number] [place] [address] Nov, [facility] [place] [facility] [address] [id number] [place] [address] Nov, [facility] [place] [facility] [address] [id number] [place] [address] Oct, [facility] [place] [facility] [address] [id number] [place] [address] Oct, [facility] [place] [facility] [address] [id number] [place] [address] Sep, [facility] [place] [facility] [address] [id number] [place] [address] Sep, [facility] [place] [facility] [address] [facility] [id number] [place] [id number] Sep, [facility] [place] [facility] [address] [id number] [place] [address] Sep, [facility] [place] [facility] [address] [id number], [place] [address] Sep, [facility] [place] [facility] [address] [id number] [place] [address] Sep, [facility] [place] [facility] [address] [id number], [place] [address] Aug, [facility] [place] [facility] [address] [id number], [place] [address] Aug, [facility] [place] [facility] [address] [id number] [place] [address] Aug, [facility] [place] [facility] [address] [id number] [place] [address] Aug, [facility] [place] [facility] [address] [id number] [place] [address] Jul, [facility] [place] [facility] [address] [id number] [place] [address] Jul, [facility] [place] [facility] [address] [id number] [place] [address] Jul, [facility] [place] [facility] [address] [id number] [place] [address] Jul, [facility] [address] [id number] [place] [address] Jun, [facility] [place] [facility] [address] [id number] [place] [address] Jun, [facility] [place] [facility] [address] [id number] [place] [address] May, [facility] [place] [facility] [address] [id number] [place] [address] May, [facility] [place] [facility] [address] [id number] [place] [address] May, [facility] [place] [facility] [address] [id number] [place] [address] May, [facility] [place] [facility] [address] [id number] [place] [address] 10 May, 2013 [facility] [place] [facility] [address] [id number] [place] [address] 17 Apr, 2013 [facility] [place] [facility] [address] [id number] [place] [address] 10 Apr, 2013 [facility] [place] [facility] [address] [id number] [place] [address] Mar, [facility] [place] [facility] [address] [id number] [place] [address] Mar, [facility] [place] [facility] [address] [id number] [place] [address] Mar, [facility] [place] [facility] [address] [id number] [place] [address] Mar, [facility] [place] [facility] [address] [id number] [place] [address] Feb, [facility] [place] [facility] [address] [id number] [place] [address] Feb, [facility] [place] [facility] [address] [id number] [place] [address] Feb, [facility] [place] [facility] [address] [id number] [place] [address] Feb, [facility] [place] [facility] [address] [id number] [place] [address] Feb, [facility] [place] [facility] [address] [id number] [place] [address] Jan, [facility] [place] [facility] [address] [id number] [place] [address] Jan, [facility] [place] [facility] [address] [id number] [place] [address] Jan, [facility] [place] [facility] [address] [id number] [place] [address] Jan, [facility] [place] [facility] [address] [id number] [place] [address] Jan, [facility] [place] [facility] [address] [id number] [place] [address] December, [facility] [place] [facility] [address] [id number] [place] [address] December, [facility] [place] [facility] [address] [id number] [place] [address] 17 Nov, 2012 [facility] [address] [id number] [place] [address] Nov, [facility] [address] [id number] [place] [address] 19 Oct, 2012 [facility] [address] [id number] [place] [address] Oct, [facility] [address] [id number] [place] [address] 05 Oct, 2012 [facility] [address] [id number] [place] [address] 14 Sep, 2012 [facility] [address] [id number] [place] [address] 24 Aug, 2012 [facility] [address] [id number] [place] [address] 16 Aug, 2012 [facility] [address] [id number] [place] [address] 15 Aug, 2012 [facility] [address] [id number] [place] [address] Aug, [facility] [place] [facility] [address] [id number] [place] [address] Jul, [facility] [address] [id number] [place] [address] Jul, [facility] [address] [id number] [place] [address] Jul, [facility] [address] [id number] [place] [address] Jul, [facility] [address] [id number] [place] [address] Jul, [facility] [address] [id number] [place] [address] Jul, [facility] [place] [facility] [address] [id number] [place] [address] Jul, [facility] [place] [facility] [address] [id number] [place] [address] Jul, [facility] [place] [facility] [address] [id number] [place] [address] Jun, [facility] [place] [facility] [address] [id number] [place] [address] Jun, [facility] [place] [facility] [address] [id number] [place] [address] Jun, [facility] [place] [facility] [address] [id number] [place] [address] Jun, [facility] [place] [facility] [address] [id number] [place] [address] Jun, [facility] [place] [facility] [address] [id number] [place] [address] Jun, [facility] [place] [facility] [address] [id number] [place] [address] May, [facility] [place] [facility] [address] [id number] [place] [address] May, [facility] [place] [facility] [address] [id number], [place] [address] May, [facility] [place] [facility] [address] [id number], [place] [address] May, [facility] [place] [facility] [address] [id number] [place] [address] Apr, [facility] [place] [facility] [address] [id number] [place] [address] Apr, [facility] [place] [facility] [address] [facility] [id number] [place] [address] Mar, [facility] [place] [facility] [address] [id number] [place] [address] 28 Jan, 2012 [facility] [place] [facility] [address] [id number] [place] [address] 20 Jan, 2012 [facility] [place] [facility] [address] [id number] [place] [address] 16 Jan, 2012 [facility] [place] [facility] [address] [id number] [place] [address] 15 Jan, 2012 [facility] [place] [facility] [address] [id number] [place] [address] 14 Jan, 2012 [facility] [place] [facility] [address] [id number] [place] [address] 14 Jan, 2012 [facility] [place] [facility] [address] [id number] [place] [address] 07 Jan, 2012 [facility] [place] [facility] [address] [id number] [place] [address] December, [facility] [place] [facility] [address] [id number] [place] [address] December, [facility] [place] [facility] [address] [id number] [place] [address] December, [facility] [place] [facility] [address] [id number] [place] [address] December, [facility] [place] [facility] [address] [id number] [place] [address] 25 Nov, 2011 [facility] [place] [facility] [address] [id number] [place] [address] 05 Nov, 2011 [facility] [place] [facility] [address] [id number] [place] [address] 29 Oct, 2011 [facility] [place] [facility] [address] [id number] [place] [address] 28 Oct, 2011 [facility] [place] [facility] [address] [id number] [place] [address] 15 Oct, 2011 [facility] [place] [facility] [address] [id number] [place] [address] Sep, [facility] [address] [id number] [place] [address] Sep, [facility] [place] [facility] [address] [id number] [place] [address] Sep, [facility] [address] [id number] [place] [address] Aug, [facility] [address] [id number] [place] [address] Aug, [facility] [address] [id number] [place] [address] Aug, [facility] [address] [id number] [place] [address] Aug, [facility] [address] [id number] [place] [address] Aug, [facility] [address] [id number] [place] [address] Aug, [facility] [address] [id number] [place] [address] Aug, [facility] [address] [id number] [place] [address] Jul, [facility] [address] [id number] [place] [address] Jul, [facility] [place] [facility] [address] [id number] [place] [address] Jun, [facility] [place] [facility] [address] [id number] [place] [address] Jun, [facility] [place] [facility] [address] [id number] [place] [address] 17 Jun, 2011 [facility] [place] [facility] [address] [id number] [place] [address] 15 Jun, 2011 [facility] [place] [facility] [address] [id number] [place] [address] 14 Jun, 2011 [facility] [place] [facility] [address] [id number] [place] [address] 14 Jun, 2011 [facility] [place] [facility] [address] [id number] [place] [address] 07 Jun, 2011 [facility] [place] [facility] [address] [id number] [place] [address] Jun, [facility] [place] [facility] [address] [id number] [place] [address] Jun, [facility] [place] [facility] [address] [id number] [place] [address] Jun, [facility] [place] [facility] [address] [id number] [place] [address] May, [facility] [place] [facility] [address] [id number] [place] [address] May, [facility] [place] [facility] [address] [id number] [place] [address] May, [facility] [place] [facility] [address] [id number] [place] [address] 24 May, 2011 [facility] [place] [facility] [address] [id number], [place] [address] 18 May, 2011 [facility] [place] [facility] [address] [id number], [place] [address] May, [facility] [place] [facility] [address] [id number] [place] [address] Feb, [facility] [place] [facility] [address] [id number] [place] [address] December, [facility] [place] [facility] [address] [id number] [place] [address] Jul, [facility] [place] [facility] [id number] [address] 29 Jul, 2010 [facility] [id number] [address] Jul, [facility] [id number] [address] Jul, [facility] [id number] [address] Jun, [facility] [id number] [address] Jul, [facility] [id number] [place] [address] Jul, [facility] [id number], [place] [address] Jul, [facility] [id number] [place] [address] Jul, [facility] [id number], [place] [address] Jul, [facility] [id number], [place] [address] Jul, [facility] [id number], [place] [address] Jan, [facility] [id number], [place] [address] 16 Sep, 2008 [facility] [id number] [address] Sep, IMMUNIZATIONS No Known Immunizations SOCIAL HISTORY Never Assessed REASON FOR VISIT Controlled Med Refill PLAN OF CARE VITAL SIGNS MEDICATIONS Medication [...]
--- OUTSIDE RECORDS SUMMARY | 2019-01-22 21:22 | XMS REPORT ---
Author Author LETTY WILKINS Organization [facility] Address [address] [place] [address] Care Team Providers Care Wallpaper Consultant Name Role Phone LETTY WILKINS Unavailable PROBLEMS Type Condition ICD9-CM Code CZD18-NB Code Onset Dates Condition Status SNOMED Code Problem Family history of diabetes mellitus Z83.3 Active 476173393 Problem Hot flashes N95.1 Active 715576253 Problem Excessive and frequent menstruation with irregular cycle N92.1 Active 505202437 Problem Diverticulitis K57.92 Active 085629667 Problem Gastroesophageal reflux disease with esophagitis K21.0 Active 857359851 Problem Mitral valve prolapse I34.1 Active 286800938 Problem Perimenopausal N95.1 Active 497456549751097 Problem Tachycardia R00.0 Active 4087371 Problem Abnormal uterine bleeding (AUB) N93.9 Active 11302683969763 Problem History of diverticulitis Z87.19 Active 944318905503704 Problem History of colon polyps Z86.010 Active 526650152 Problem Generalized anxiety disorder F41.1 Active 196904951 Problem Dense breast tissue R92.2 Active 071595234 Problem Hypertension I10 Active 33222883 Problem History of ovarian cyst Z87.42 Active 48241648 ALLERGIES No Information ENCOUNTERS Encounter Location Date Diagnosis [facility] [id number] [address] Jan, [facility] [address] [address] Jan, [facility] [address] [address] December, [facility] [address] [address] December, Hypertension I[id number] [address] December, Generalized anxiety disorder F41.1 [facility] [address] [id number], [place] [address] 16 Oct, 2017 Encounter for dental examination Z01.20 [facility] [address] [id number], [place] [address] 06 Oct, 2017 Encounter for dental examination Z01.20 [facility] [address] [id number], [place] [address] 02 Oct, [address] [facility] [id number] [address] Oct, Generalized anxiety disorder F41.1 [facility] [address] [id number], [place] [address] Aug, Dental examination Z01.20 [facility] [id number] [address] Aug, Generalized anxiety disorder F41.1 [facility] [id number] [address] Aug, [facility] [address] [id number], [place] [address] Aug, Encounter for dental examination Z01.20 [facility] [address] [address] Aug, Subacute maxillary sinusitis J01.00 [facility] [address] [id number], [place] [address] Jul, Dental examination Z01.20 [facility] [id number] [address] Jul, Generalized anxiety disorder F41.1 [facility] [id number] [address] Jul, Di[address]itis [address]57.92 [facility] [id number] [address] Jun, Encounter for immunization Z23 [facility] [address] [id number], [place] [address] Jun, Dental examination Z01.20 [facility] [id number] [place] [address] Jun, Generalized anxiety disorder F41.1 [facility] [address] [id number], [place] [address] Jun, Dental examination Z01.20 [facility] [id number] [place] [address] May, [facility] [id number] [place] [address] [id number] May, Dental examination Z01.20 [facility] [id number] [place] [id number] May, Dental examination Z01.20 [facility] [address] [id number] [place] [address] May, Dental examination Z01.20 [facility] [id number] [place] [address] May, [facility] [id number] [place] [address] May, Generalized anxiety disorder F41.1 [facility] [id number] [place] [address] May, Localized edema R60.0 ; Yeast vaginitis B37.3 and Gastroesophageal reflux disease with esophagitis K21.0 [facility] [address] [id number] [id number] Apr, Dental examination Z01.20 [facility] [address] [id number], [place] [address] Apr, Dental examination Z01.20 [facility] [address] [id number], [place] [address] 05 Apr, [address] [facility] [address] [address] Mar, Dyspepsia R10.13 [facility] [id number] [place] [address] Mar, Generalized anxiety disorder F41.1 [facility] [address] [id number], [place] [address] Mar, Encounter for dental examination Z01.20 [facility] [id number] [place] [address] [id number] Mar, [facility] [id number] [place] [address] [id number] Mar, Dental examination Z01.20 [facility] [id number] [place] [address] Feb, Hypertension I10 and Tachycardia R00.0 [facility] [address] [id number], [place] [address] Feb, [facility] [id number] [place] [address] Feb, Generalized anxiety disorder F41.1 [facility] [id number] [place] [address] [id number] Feb, Dental examination Z01.20 [facility] [id number] [address] Jan, Generalized anxiety disorder F41.1 [facility] [id number] [place] [address] December, Generalized anxiety disorder F41.1 [facility] [address] [id number] [place] [address] [id number] December, Encounter for dental examination Z01.20 [facility] [address] [address] 24 Nov, 2016 [facility] [id number] [place] [address] Nov, [facility] [id number] [place] [address] Nov, Generalized anxiety disorder F41.1 [facility] [id number] [place] [address] 30 Oct, 2016 [facility] [id number] [place] [address] [phone] Oct, Dental examination Z01.20 [facility] [id number] [place] [address] Oct, Vaginal dryness N89.8 [address] [id number] [place] [address] Oct, Pseudoseizures F44.5 [facility] [id number] [place] [address] Oct, Generalized anxiety disorder F41.1 [facility] [id number] [place] [address] 28 Sep, 2016 Abnormal uterine bleeding (AUB) N93.9 ; Vaginal dryness N89.8 and Screening breast examination Z12.39 [facility] [id number] [place] [address] Sep, Dental examination Z01.20 [facility] [address] [place] [address] Sep, Generalized anxiety disorder F41.1 [facility] [address] [place] [address] 06 Sep, 2016 Unspecified ovarian cyst, right side N83.201 ; Unspecified ovarian cyst, left side N83.202 ; Yeast infection of the vagina B37.3 ; Mitral valve prolapse I34.[address] [facility] [address] [address] Aug, Generalized anxiety disorder F41.1 [facility] [id number] [place] [address] 28 Jul, 2016 [facility] [id number] [place] [address] Jul, Generalized anxiety disorder F41.1 [facility] [id number] [place] [address] Jun, Generalized anxiety disorder F41.1 [facility] [id number] [place] [address] 28 May, 2016 Encounter for immunization Z23 [facility] [id number] [place] [address] 17 May, 2016 Generalized anxiety disorder F41.1 and Depressive disorder, not elsewhere classified F32.9 [facility] [id number] [place] [address] 28 Apr, [address] [facility] [id number] [place] [address] 22 Apr, 2016 Cervicalgia M54.2 [facility] [id number] [place] [address] 12 Apr, [address] [facility] [id number] [place] [address] 09 Mar, 2016 Generalized anxiety disorder F41.1 and Depressive disorder, not elsewhere classified F32.9 [facility] [address] [place] [id number] 14 Feb, 2016 Visit for dental examination Z01.20 [facility] [address] [address] 11 Feb, 2016 Pseudoseizures F44.5 ; Migraine without status migrainosus, not intractable, unspecified migraine type G43.909 and Essential hypertension I10 [facility] [id number] [place] [address] [id number] 06 Feb, 2016 Dental examination Z01.20 [address] [id number] [place] [address] Feb, Generalized anxiety disorder F41.1 and Depressive disorder, not elsewhere classified F32.9 [place] [id number] [place] [address] Jan, Tachycardia R00.0 [place] [id number] [place] [address] December, Eustachian tube dysfunction, bilateral H69.83 [place] [id number] [place] [address] December, Generalized anxiety disorder F41.1 and Depressive disorder, not elsewhere classified F32.9 [place] [id number] [place] [address] Nov, [place] [id number] [place] [address] Nov, [place] [id number] [place] [address] Nov, Hypertension I10 ; Onychomycosis B35.1 ; [...] cyst of left ovary N83.29 [address] [address] [place] [address] 14 Nov, 2015 Sinusitis J32.9 [place] [id number] [place] [address] Oct, Complex cyst of left ovary N83.29 [address] [id number] [place] [address] Oct, Onychomycosis B35.1 [facility] [address] [place] [address] [id number] 17 Oct, 2015 Dental examination Z01.20 [place] [address] [address] 09 Oct, 2015 Well woman exam Z01.419 [...] R92.2 and History of colon polyps Z86.010 [place] [id number] [place] [address] Oct, Generalized anxiety disorder F41.1 and Depressive disorder, not elsewhere classified F32.9 [place] [id number] [place] [address] Sep, Hypertension I10 and Onychomycosis B35.1 [place] [id number] [place] [address] Sep, Skin tags, multiple acquired L91.8 [place] [id number] [place] [address] Aug, [place] [address] [address] Aug, [place] [address] [address] Aug, [place] [address] [place] [address] Aug, Generalized anxiety disorder F41.1 and Depressive disorder, not elsewhere classified F32.9 [facility] [id number] [place] [address] Jul, Skin lesion L98.9 [facility] [id number] [place] [address] Jun, Generalized anxiety disorder F41.1 and Depressive disorder, not elsewhere classified F32.9 [facility] [id number] [place] [address] Jun, [facility] [address] [address] Jun, Generalized anxiety disorder F41.1 [place] [address] [address] May, Encounter for immunization Z23 and Right shoulder pain M25.511 [facility] [id number] [place] [address] Apr, [facility] [address] [address] Apr, Generalized anxiety disorder 300.02 and Depressive disorder, not elsewhere classified 311 [facility] [id number] [place] [id number] Mar, Dental examination V72.2 [facility] [id number] [place] [address] Mar, Generalized anxiety disorder 300.02 and Depressive disorder, not elsewhere classified [address] [facility] [id number] [place] [address] Mar, Depression, major, recurrent, 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.35 and 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 [facility] [id number] [place] [address] Feb, Generalized anxiety disorder 300.02 and Depressive disorder, not elsewhere classified 311 [facility] [id number] [id number] Feb, Dental examination V72.2 [facility] [id number] [place] [address] 09 Jan, 2015 Generalized anxiety disorder 300.02 and Depressive disorder, not elsewhere classified 311 [facility] [id number] [place] [address] Jan, [facility] [id number] [place] [address] December, Generalized anxiety disorder 300.02 and Depressive disorder, not elsewhere classified [address] [facility] [id number] [place] [address] December, Major depressive disorder, recurrent, unspecified 296.30 and Panic disorder with agoraphobia 300.21 [facility] [id number] [place] [address] Nov, [facility] [address] [address] Nov, [facility] [address] [address] Oct, [facility] [address] [address] Oct, [facility] [address] [address] Oct, [facility] [address] [address] Oct, [facility] [id number] [place] [address] Sep, [facility] [address] [address] Sep, [facility] [id number] [place] [address] Sep, 2014 [facility] [place] [facility] [address] [id number] [place] [address] Sep, 2014 [facility] [place] [facility] [address] [id number] [place] [address] Sep, 2014 [facility] [place] [facility] [address] [facility] [id number] [place] [address] Sep, 2014 [facility] [place] [facility] [address] [facility] [id number] [place] [address] Sep, 2014 [facility] [place] [facility] [address] [facility] [id number] [place] [address] Sep, 2014 [facility] [place] [facility] [address] [facility] [id number] [place] [address] Sep, 2014 [facility] [place] [facility] [address] [facility] [id number] [place] [address] Sep, 2014 [facility] [place] [facility] [address] [facility] [id number] [place] [address] Aug, [facility] [place] [facility] [address] [facility] [id number] [place] [address] Aug, [facility] [place] [facility] [address] [facility] [id number] [place] [address] Jul, [facility] [place] [facility] [address] [facility] [id number] [place] [address] Jul, [facility] [place] [facility] [address] [facility] [id number] [address] 18 Jul, 2014 [facility] [place] [facility] [address] [facility] [id number] [place] [address] Jul, [facility] [place] [facility] [address] [facility] [id number] [place] [address] Jul, [facility] [place] [facility] [address] [facility] [id number] [place] [address] Jul, [facility] [place] [facility] [address] [id number] [place] [address] 05 Jul, 2014 [facility] [place] [facility] [address] [id number] [place] [address] Jul, [facility] [place] [facility] [address] [id number] [place] [address] Jul, [facility] [place] [facility] [address] [id number] [place] [address] Jul, [facility] [place] [facility] [address] [id number] [place] [address] Jul, [facility] [place] [facility] [address] [id number] [place] [address] Jul, [facility] [place] [facility] [address] [id number] [place] [address] Jun, [facility] [place] [facility] [address] [id number] [place] [address] Jun, [facility] [place] [facility] [address] [id number] [place] [address] May, [facility] [place] [facility] [address] [id number] [place] [address] May, [facility] [place] [facility] [address] [id number] [place] [address] May, [facility] [place] [facility] [address] [id number] [place] [address] May, [facility] [place] [facility] [address] [id number] [place] [address] May, [facility] [place] [facility] [address] [id number] [place] [address] May, [facility] [place] [facility] [address] [id number] [place] [address] May, [facility] [place] [facility] [address] [id number] [place] [address] May, [facility] [place] [facility] [address] [id number] [place] [address] May, [facility] [place] [facility] [address] [id number] [place] [address] May, [facility] [place] [facility] [address] [id number] [place] [address] May, [facility] [place] [facility] [address] [id number] [place] [address] May, [facility] [place] [facility] [address] [id number] [place] [address] Apr, [facility] [place] [facility] [address] [id number] [place] [address] Apr, [facility] [place] [facility] [address] [id number] [place] [address] Apr, [facility] [place] [facility] [address] [id number] [place] [address] Apr, [facility] [place] [facility] [address] [id number] [place] [address] Apr, [facility] [place] [facility] [address] [id number] [place] [address] Apr, [facility] [place] [facility] [address] [id number] [place] [address] Feb, [facility] [place] [facility] [address] [id number] [address] Feb, [facility] [place] [facility] [address] [id number] [place] [address] Feb, [facility] [place] [facility] [address] [id number] [place] [address] Feb, [facility] [place] [facility] [address] [id number] [place] [address] Feb, [facility] [place] [facility] [address] [id number] [place] [address] Feb, [facility] [place] [facility] [address] [id number] [place] [address] Jan, [facility] [place] [facility] [address] [id number] [place] [address] Jan, [facility] [place] [facility] [address] [id number] [place] [address] Jan, [facility] [place] [facility] [address] [id number] [place] [address] Jan, [facility] [place] [facility] [address] [id number] [place] [address] Jan, [facility] [place] [facility] [address] [id number] [place] [address] Jan, [facility] [place] [facility] [address] [id number] [place] [address] Jan, [facility] [place] [facility] [address] [id number] [place] [address] Jan, [facility] [place] [facility] [address] [id number] [place] [address] December, [facility] [place] [facility] [address] [id number] [place] [address] December, [facility] [place] [facility] [address] [id number] [place] [address] December, [facility] [place] [facility] [address] [id number] [place] [address] December, [facility] [place] [facility] [address] [id number] [place] [address] Nov, [facility] [place] [facility] [address] [id number] [place] [address] Nov, [facility] [place] [facility] [address] [id number] [place] [address] Nov, [facility] [place] [facility] [address] [id number] [place] [address] Nov, [facility] [place] [facility] [address] [id number] [place] [address] Nov, [facility] [place] [facility] [address] [id number] [place] [address] Nov, [facility] [place] [facility] [address] [id number] [place] [address] Nov, [facility] [place] [facility] [address] [id number] [place] [address] Nov, [facility] [place] [facility] [address] [id number] [place] [address] Oct, [facility] [place] [facility] [address] [id number] [place] [address] Oct, [facility] [place] [facility] [address] [id number] [place] [address] Sep, [facility] [place] [facility] [address] [id number] [place] [address] Sep, [facility] [place] [facility] [address] [id number] [place] [id number] Sep, [facility] [place] [facility] [address] [id number] [place] [address] Sep, [facility] [place] [facility] [address] [id number] [place] [address] Sep, [facility] [place] [facility] [address] [id number] [place] [address] Sep, [facility] [place] [facility] [address] [id number] [place] [address] Aug, [facility] [place] [facility] [address] [id number] [place] [address] Aug, [facility] [place] [facility] [address] [id number] [place] [address] Aug, [facility] [address] [id number] [place] [address] Aug, [facility] [place] [facility] [address] [id number] [place] [address] Jul, [facility] [place] [facility] [address] [id number] [place] [address] Jul, [facility] [place] [facility] [address] [id number] [place] [address] Jul, [facility] [place] [facility] [address] [id number] [place] [address] Jul, [facility] [place] [facility] [address] [id number] [place] [address] Jun, [facility] [place] [facility] [address] [id number] [place] [address] Jun, [facility] [place] [facility] [address] [id number] [place] [address] May, [facility] [place] [facility] [address] [id number] [place] [address] May, [facility] [place] [facility] [address] [id number] [place] [address] May, [facility] [place] [facility] [address] [id number] [place] [address] May, [facility] [place] [facility] [address] [id number] [place] [address] May, [facility] [place] [facility] [address] [id number] [place] [address] 17 Apr, 2013 [facility] [place] [facility] [address] [id number] [place] [address] 10 Apr, 2013 [facility] [place] [facility] [address] [id number] [place] [address] Mar, [facility] [place] [facility] [address] [id number] [place] [address] Mar, [facility] [place] [facility] [address] [id number] [place] [address] Mar, [facility] [place] [facility] [address] [id number] [place] [address] Mar, [facility] [place] [facility] [address] [id number] [place] [address] Feb, [facility] [place] [facility] [address] [id number] [place] [address] Feb, [facility] [place] [facility] [address] [id number] [place] [address] Feb, [facility] [place] [facility] [address] [id number] [place] [address] Feb, [facility] [place] [facility] [address] [id number] [place] [address] Feb, [facility] [place] [facility] [address] [id number] [place] [address] Jan, [facility] [place] [facility] [address] [id number] [place] [address] Jan, [facility] [place] [facility] [address] [id number] [place] [address] Jan, [facility] [place] [facility] [address] [id number] [place] [address] Jan, [facility] [place] [facility] [address] [id number] [place] [address] Jan, [facility] [place] [facility] [address] [id number] [place] [address] December, [facility] [place] [facility] [address] [id number] [place] [address] December, [facility] [place] [facility] [address] [id number] [place] [address] 17 Nov, 2012 [facility] [address] [id number] [place] [address] Nov, [facility] [place] [facility] [address] [id number] [place] [address] 19 Oct, 2012 [facility] [place] [facility] [address] [facility] [id number] [place] [address] Oct, [facility] [place] [facility] [address] [id number] [place] [address] 05 Oct, 2012 [facility] [address] [id number] [place] [address] 14 Sep, 2012 [facility] [place] [facility] [address] [id number] [place] [address] 24 Aug, 2012 [facility] [address] [id number] [place] [address] 16 Aug, 2012 [facility] [place] [facility] [address] [id number] [place] [address] Aug, [facility] [address] [id number] [place] [address] Aug, [facility] [address] [id number] [place] [address] Jul, [facility] [address] [id number] [place] [address] Jul, [facility] [place] [facility] [address] [id number] [place] [address] Jul, [facility] [place] [facility] [address] [id number] [place] [address] Jul, [facility] [place] [facility] [address] [facility] [id number] [place] [address] Jul, [facility] [place] [facility] [address] [facility] [id number] [place] [address] Jul, [facility] [place] [facility] [address] [id number] [place] [address] Jul, [facility] [address] [id number] [place] [address] Jul, [facility] [place] [facility] [address] [id number] [place] [address] Jun, [facility] [place] [facility] [address] [id number] [place] [address] Jun, [facility] [place] [facility] [address] [id number] [place] [address] Jun, [facility] [place] [facility] [address] [id number] [place] [address], [place] [address] Jun, [facility] [place] [facility] [address] [id number] [place] [address] Jun, [facility] [place] [facility] [address] [facility] [id number] [place] [address] Jun, [facility] [place] [facility] [address] [id number] [place] [address] May, [facility] [place] [facility] [address] [id number] [place] [address] May, [facility] [place] [facility] [address] [facility] [id number] [place] [address] May, [facility] [place] [facility] [address] [id number] [place] [address] May, [facility] [place] [facility] [address] [id number] [place] [address] Apr, [facility] [place] [facility] [address] [id number] [place] [address] Apr, [facility] [place] [facility] [address] [facility] [id number] [place] [address] Mar, [facility] [place] [facility] [address] [id number] [place] [address] Jan, [facility] [place] [facility] [address] [id number] [place] [address] 20 Jan, 2012 [facility] [place] [facility] [address] [id number] [place] [address] 16 Jan, 2012 [facility] [place] [facility] [address] [id number] [place] [address] 15 Jan, 2012 [facility] [place] [facility] [address] [id number] [place] [address] 14 Jan, 2012 [facility] [place] [facility] [address] [id number] [place] [address] 14 Jan, 2012 [facility] [place] [facility] [address] [id number] [place] [address] 07 Jan, 2012 [facility] [place] [facility] [address] [id number] [place] [address] December, [facility] [place] [facility] [address] [id number] [place] [address] December, [facility] [place] [facility] [address] [id number] [place] [address] December, [facility] [place] [facility] [address] [id number] [place] [address] December, [facility] [place] [facility] [address] [id number] [place] [address] Nov, [facility] [place] [facility] [address] [id number] [place] [address] 05 Nov, 2011 [facility] [place] [facility] [address] [id number] [place] [address] 29 Oct, 2011 [facility] [place] [facility] [address] [id number] [place] [address] 28 Oct, 2011 [facility] [place] [facility] [address] [id number] [place] [address] 15 Oct, 2011 [facility] [place] [facility] [address] [id number] [place] [address] Sep, [facility] [address] [id number] [place] [address] Sep, [facility] [place] [facility] [address] [id number] [place] [address] Sep, [facility] [address] [id number] [place] [address] Aug, [facility] [place] [facility] [address] [id number] [place] [address] Aug, [facility] [address] [id number] [place] [address] Aug, [facility] [address] [id number] [place] [address] Aug, [facility] [address] [id number] [place] [address] Aug, [facility] [address] [id number] [place] [address] Aug, [facility] [address] [id number] [place] [address] Aug, [facility] [address] [id number] [place] [address] Jul, [facility] [address] [id number] [place] [address] Jul, [facility] [place] [facility] [address] [id number] [place] [address] Jun, [facility] [place] [facility] [address] [id number] [place] [address] Jun, [facility] [place] [facility] [address] [id number] [place] [address] 17 Jun, 2011 [facility] [place] [facility] [address] [id number] [place] [address] 15 Jun, 2011 [facility] [place] [facility] [address] [id number] [place] [address] 14 Jun, 2011 [facility] [place] [facility] [address] [id number] [place] [address] 14 Jun, 2011 [facility] [place] [facility] [address] [id number] [place] [address] 07 Jun, 2011 [facility] [place] [facility] [address] [id number] [place] [address] 07 Jun, 2011 [facility] [place] [facility] [address] [id number] [place] [address] Jun, [facility] [place] [facility] [address] [id number] [place] [address] Jun, [facility] [place] [facility] [address] [id number] [place] [address] May, [facility] [place] [facility] [address] [id number] [place] [address] May, [facility] [place] [facility] [address] [id number] [place] [address] May, [facility] [place] [facility] [address] [id number] [place] [address] May, [facility] [place] [facility] [address] [id number] [place] [address] May, [facility] [place] [facility] [address] [id number] [place] [address] May, [facility] [place] [facility] [address] [id number] [place] [address] Feb, [facility] [place] [facility] [address] [id number] [place] [address] December, [facility] [place] [facility] [address] [id number] [place] [address] Jul, [facility] [place] [facility] [address] [id number] [place] [address] Jul, [facility] [id number] [place] [address] Jul, [facility] [id number] [address] Jul, [facility] [id number] [address] Jun, [facility] [id number] [place] [address] Jul, [facility] [id number] [address] Jul, [facility] [id number] [place] [address] Jul, [facility] [id number] [place] [address] Jul, [facility] [id number] [place] [address] Jul, [facility] [id number] [place] [address] Jul, [facility] [id number] [address] Jan, [facility] [id number] [place] [address] Sep, [facility] [id number] [place] [address] Sep, IMMUNIZATIONS No Known Immunizations SOCIAL HISTORY Never Assessed REASON FOR VISIT Refill request PLAN OF CARE VITAL SIGNS MEDICATIONS Medication Instructions Dosage Frequency Start Date End Date Duration Status Ibuprofen 600 MG Orally Three times a day 1 tablet with food or milk as needed May, 30 days Active RESULTS No Results PROCEDURES [...]
--- OUTSIDE RECORDS SUMMARY | 2019-01-22 21:23 | XMS REPORT ---
Author Author ENMA SAMSON Organization [facility] Address [address] [place] [address] Care Team Providers Care Public Speaking Instructor Name Role Phone ENMA SAMSON Unavailable PROBLEMS Type Condition ICD9-CM Code EOA17-ZP Code Onset Dates Condition Status SNOMED Code Problem Family history of diabetes mellitus Z83.3 Active 323488931 Problem Hot flashes N95.1 Active 802013002 Problem Excessive and frequent menstruation with irregular cycle N92.1 Active 742053721 Problem Diverticulitis K57.92 Active 182845107 Problem Gastroesophageal reflux disease with esophagitis K21.0 Active 473942826 Problem Mitral valve prolapse I34.1 Active 494691528 Problem Perimenopausal N95.1 Active 650495947132442 Problem Tachycardia R00.0 Active 0709624 Problem Abnormal uterine bleeding (AUB) N93.9 Active 24997797144865 Problem History of diverticulitis Z87.19 Active 714922815146197 Problem History of colon polyps Z86.010 Active 688202604 Problem Generalized anxiety disorder F41.1 Active 255690354 Problem Dense breast tissue R92.2 Active 428699522 Problem Hypertension I10 Active 91950008 Problem History of ovarian cyst Z87.42 Active 01239929 ALLERGIES Substance Reaction Event Type Date Status Sulfamethoxazole-Trimethoprim anaphylaxis Drug Allergy Mar, Active Erythromycin rash Drug Allergy Mar, Active Hydrocodone vomiting Non Drug Allergy Mar, Active ENCOUNTERS Encounter Location Date Diagnosis [facility] [address] [facility] [id number], [place] [address] Jan, [facility] [address] [facility] [id number], [place] [address] December, [facility] [address] [id number], [place] [address] Oct, Encounter for dental examination Z01.20 [facility] [address] [id number], [place] [address] 06 Oct, 2017 Encounter for dental examination Z01.20 [facility] [address] [id number], [place] [address] Oct, Dental examination Z01.20 [facility] [id number] [place] [address] Oct, Generalized anxiety disorder F41.1 [facility] [id number] [place] [address] Aug, Dental examination Z01.20 [facility] [id number] [place] [address] Aug, Generalized anxiety disorder F41.1 [facility] [id number] [place] [address] Aug, [facility] [address] [place] [id number] [place] [address] Aug, Encounter for dental examination Z01.20 [facility] [id number] [place] [address] Aug, Subacute maxillary sinusitis J01.00 [facility] [id number], [place] [address] Jul, Dental examination Z01.20 [facility] [id number] [place] [address] Jul, Generalized anxiety disorder F41.1 [facility] [id number] [place] [address] 11 Jul, 2017 Diverticulitis K57.92 [facility] [id number] [place] [address] Jun, Encounter for immunization Z23 [facility] [address] [place] [id number] [place] [address] Jun, Dental examination Z01.20 [facility] [address] [id number], [place] [address] Jun, Generalized anxiety disorder F41.1 [facility] [address] [id number], [place] [address] Jun, Dental examination Z01.20 [facility] [address] [id number] [place] [address] May, [facility] [id number] [place] [id number] May, Dental examination Z01.20 [facility] [id number] [place] [id number] May, Dental examination Z01.20 [facility] [address] [id number], [place] [address] May, Dental examination Z01.20 [facility] [id number] [place] [address] May, [facility] [id number] [place] [address] May, Generalized anxiety disorder F41.1 [facility] [id number] [place] [address] May, Localized edema R60.0 ; Yeast vaginitis B37.3 and Gastroesophageal reflux disease with esophagitis K21.0 [facility] [address] [id number] [address] Apr, Dental examination Z01.20 [facility] [address] [id number], [place] [address] Apr, Dental examination Z01.20 [facility] [address] [id number], [place] [address] 05 Apr, 2017 Dental examination Z01.20 [facility] [id number] [place] [address] Mar, Dyspepsia R10.13 [facility] [id number] [place] [address] Mar, Generalized anxiety disorder F41.1 [facility] [address] [id number], [place] [address] Mar, Encounter for dental examination Z01.20 [facility] [id number] [place] [address] [id number] Mar, [facility] [id number] [place] [id number] Mar, Dental examination Z01.20 [facility] [id number] [place] [address] Feb, Hypertension I10 and Tachycardia R00.0 [facility] [id number] [place] [address] Feb, [facility] [id number] [place] [address] Feb, Generalized anxiety disorder F41.1 [facility] [id number] [place] [phone] Feb, Dental examination Z01.20 [facility] [id number] [place] [address] Jan, Generalized anxiety disorder F41.1 [facility] [address], [place] [address] December, Generalized anxiety disorder F41.1 [facility] [id number] [place] [id number] December, Encounter for dental examination Z01.20 [facility] [id number] [place] [address] Nov, [facility] [id number] [place] [address] Nov, [facility] [id number] [place] [address] Nov, Generalized anxiety disorder F41.1 [facility] [id number] [place] [address] 30 Oct, 2016 [facility] [id number] [place] [address] [id number] Oct, Dental examination Z01.20 [place] [id number] [place] [address] Oct, Vaginal dryness N89.8 [place] [address] [address] Oct, Pseudoseizures F44.5 [place] [id number] [place] [address] Oct, Generalized anxiety disorder F41.1 [place] [id number] [place] [address] 28 Sep, 2016 Abnormal uterine bleeding (AUB) N93.9 ; Vaginal dryness N89.8 and Screening breast examination Z12.39 [place] [id number] [place] [address] 20 Sep, 2016 Dental examination Z01.20 [place] [id number] [place] [address] Sep, Generalized anxiety disorder F41.1 [place] [id number] [place] [address] 06 Sep, 2016 Unspecified ovarian cyst, right side N83.201 ; Unspecified ovarian cyst, left side N83.202 ; Yeast infection of the vagina B37.3 ; Mitral valve prolapse I34.1 and Hypertension I10 [place] [address] [place] [address] Aug, Generalized anxiety disorder F41.1 [place] [id number] [place] [address] Jul, [facility] [id number] [place] [address] Jul, Generalized anxiety disorder F41.1 [facility] [id number] [place] [address] Jun, Generalized anxiety disorder F41.1 [facility] [address] [address] May, Encounter for immunization Z23 [facility] [address] [address] 17 May, 2016 Generalized anxiety disorder F41.1 and Depressive disorder, not elsewhere classified F32.9 [facility] [id number] [place] [address] 28 Apr, 2016 Hypertension I10 [facility] [address] [address] 22 Apr, 2016 Cervicalgia M54.2 [facility] [id number] [place] [address] 12 Apr, 2016 Cervicalgia M54.2 [facility] [id number] [place] [address] 09 Mar, 2016 Generalized anxiety disorder F41.1 and Depressive disorder, not elsewhere classified F32.9 [facility] [id number] [place] [address] [id number] 14 Feb, 2016 Visit for dental examination Z01.20 [facility] [id number] [place] [address] 11 Feb, 2016 Pseudoseizures F44.5 ; Migraine without status migrainosus, not intractable, unspecified migraine type G43.909 and Essential hypertension I10 [facility] [id number] [place] [address] [id number] 06 Feb, 2016 Dental examination Z01.20 [facility] [address] [address] Feb, Generalized anxiety disorder F41.1 and Depressive disorder, not elsewhere classified F32.9 [place] [id number] [place] [address] Jan, Tachycardia R00.0 [place] [id number] [place] [address] December, Eustachian tube dysfunction, bilateral H69.83 [place] [id number] [place] [address] December, Generalized anxiety disorder F41.1 and Depressive disorder, not elsewhere classified F32.9 [place] [id number] [place] [address] Nov, [place] [id number] [place] [address] Nov, [place] [id number] [place] [address] Nov, Hypertension I10 ; Onychomycosis B35.1 ; [...] and Complex cyst of left ovary N83.29 [place] [address] [place] [address] Nov, Sinusitis J32.9 [place] [id number] [place] [address] Oct, Complex cyst of left ovary N83.29 [place] [id number] [place] [address] Oct, Onychomycosis B35.1 [place] [address] [place] [address] [id number] 17 Oct, 2015 Dental examination Z01.20 [place] [id number] [place] [address] 09 Oct, 2016 Well woman exam Z01.419 [...] R92.2 and History of colon polyps Z86.010 [place] [id number] [place] [address] Oct, Generalized anxiety disorder F41.1 and Depressive disorder, not elsewhere classified F32.9 [place] [id number] [place] [address] Sep, Hypertension I10 and Onychomycosis B35.1 [place] [address] [address] 16 Sep, 2015 Skin tags, multiple acquired L91.8 [place] [id number] [place] [address] Aug, [place] [id number] [place] [address] Aug, [place] [id number] [place] [address] Aug, [place] [id number] [place] [address] Aug, Generalized anxiety disorder F41.1 and Depressive disorder, not elsewhere classified F32.9 [place] [id number] [place] [address] Jul, Skin lesion L98.9 [facility] [address] [place] [address] Jun, Generalized anxiety disorder F41.1 and Depressive disorder, not elsewhere classified F32.9 [facility] [id number] [place] [address] Jun, [facility] [id number] [place] [address] Jun, Generalized anxiety disorder F41.1 [facility] [id number] [place] [address] May, Encounter for immunization Z23 and Right shoulder pain M25.511 [facility] [id number] [place] [address] Apr, [facility] [id number] [place] [address] Apr, Generalized anxiety disorder 300.02 and Depressive disorder, not elsewhere classified [address] [facility] [address] [place] [address] [id number] Mar, Dental examination V72.2 [facility] [id number] [place] [address] Mar, Generalized anxiety disorder 300.02 and Depressive disorder, not elsewhere classified 311 [facility] [address] [place] [address] Mar, Depression, major, recurrent, 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.35 and 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 [facility] [id number] [place] [address] Feb, Generalized anxiety disorder 300.02 and Depressive disorder, not elsewhere classified [address] [facility] [address] [place] [address] [phone] Feb, Dental examination V72.2 [facility] [id number] [place] [address] Jan, Generalized anxiety disorder 300.02 and Depressive disorder, not elsewhere classified 311 [facility] [address], [place] [address] Jan, [facility] [id number] [place] [address] December, Generalized anxiety disorder 300.02 and Depressive disorder, not elsewhere classified 311 [facility] [id number] [place] [address] December, Major depressive disorder, recurrent, unspecified 296.30 and Panic disorder with agoraphobia 300.21 [facility] [id number] [place] [address] Nov, [facility] [id number] [place] [address] Nov, [facility] [id number] [place] [address] Oct, [facility] [address], [place] [address] Oct, [facility] [address] [place] [address] Oct, [facility] [address]65[address], [place] [address] Oct, [facility] [address], [place] [address] Sep, [facility] [address], [place] [address] Sep, [facility] [address]65[address], [place] [address] Sep, [facility] [address]65[address], [place] [address] Sep, [facility] [address] [place] [address] Sep, 2014 [facility] [place] [facility] [address] [id number] [place] [address] Sep, 2014 [facility] [place] [facility] [address] [id number] [place] [address] Sep, 2014 [facility] [place] [facility] [address] [id number] [place] [address] Sep, 2014 [facility] [place] [facility] [address] [id number] [place] [address] Sep, 2014 [facility] [place] [facility] [address] [id number] [place] [address] Sep, 2014 [facility] [place] [facility] [address] [id number] [place] [address] Aug, [facility] [place] [facility] [address] [id number] [place] [address] Aug, [facility] [place] [facility] [address] [id number] [place] [address] Jul, [facility] [place] [facility] [address] [id number] [place] [address] Jul, [facility] [place] [facility] [address] [facility] [id number] [place] [address] 18 Jul, 2014 [facility] [place] [facility] [address] [id number] [place] [address] 18 Jul, 2014 [facility] [place] [facility] [address] [id number] [place] [address] Jul, [facility] [place] [facility] [address] [id number] [place] [address] Jul, [facility] [place] [facility] [address] [id number] [place] [address] 05 Jul, 2014 [facility] [place] [facility] [address] [facility] [id number] [place] [address] 05 Jul, 2014 [facility] [place] [facility] [address] [id number] [place] [address] Jul, [facility] [place] [facility] [address] [id number] [place] [address] Jul, [facility] [place] [facility] [address] [id number] [place] [address] Jul, [facility] [place] [facility] [address] [id number] [place] [address] Jul, [facility] [place] [facility] [address] [id number] [place] [address] Jun, [facility] [place] [facility] [address] [id number] [place] [address] Jun, [facility] [place] [facility] [address] [id number] [place] [address] May, [facility] [place] [facility] [address] [id number] [place] [address] May, [facility] [place] [facility] [address] [id number] [place] [address] May, [facility] [place] [facility] [address] [id number] [place] [address] May, [facility] [place] [facility] [address] [id number] [place] [address] May, [facility] [place] [facility] [address] [id number] [place] [address] May, [facility] [place] [facility] [address] [id number] [place] [address] May, [facility] [place] [facility] [address] [id number] [place] [address] May, [facility] [place] [facility] [address] [id number] [place] [address] May, [facility] [place] [facility] [address] [id number] [place] [address] May, [facility] [place] [facility] [address] [id number] [place] [address] May, [facility] [place] [facility] [address] [id number] [place] [address] May, [facility] [place] [facility] [address] [id number] [place] [address] Apr, [facility] [place] [facility] [address] [id number] [place] [address] Apr, [facility] [place] [facility] [address] [id number] [place] [address] Apr, [facility] [place] [facility] [address] [id number] [place] [address] Apr, [facility] [place] [facility] [address] [id number] [place] [address] Apr, [facility] [place] [facility] [address] [id number] [place] [address] Apr, [facility] [place] [facility] [address] [id number] [place] [address] Feb, [facility] [place] [facility] [address] [id number] [place] [address] Feb, [facility] [place] [facility] [address] [id number] [place] [address] Feb, [facility] [place] [facility] [address] [id number] [place] [address] Feb, [facility] [place] [facility] [address] [id number] [place] [address] Feb, [facility] [place] [facility] [address] [id number] [place] [address] Feb, [facility] [place] [facility] [address] [id number] [place] [address] Jan, [facility] [place] [facility] [address] [id number] [place] [address] Jan, [facility] [place] [facility] [address] [id number] [place] [address] Jan, [facility] [place] [facility] [address] [id number] [place] [address] Jan, [facility] [place] [facility] [address] [id number] [place] [address] Jan, [facility] [place] [facility] [address] [id number] [place] [address] Jan, [facility] [place] [facility] [address] [id number] [place] [address] Jan, [facility] [place] [facility] [address] [id number] [place] [address] Jan, [facility] [place] [facility] [address] [id number] [place] [address] December, [facility] [place] [facility] [address] [id number] [place] [address] December, [facility] [place] [facility] [address] [id number] [place] [address] December, [facility] [place] [facility] [address] [id number] [place] [address] December, [facility] [place] [facility] [address] [id number] [place] [address] Nov, [facility] [place] [facility] [address] [id number] [place] [address] Nov, [facility] [place] [facility] [address] [id number] [place] [address] Nov, [facility] [place] [facility] [address] [id number] [place] [address] Nov, [facility] [place] [facility] [address] [id number] [place] [address] Nov, [facility] [place] [facility] [address] [id number] [place] [address] Nov, [facility] [place] [facility] [address] [id number] [place] [address] Nov, [facility] [place] [facility] [address] [id number] [place] [address] Nov, [facility] [place] [facility] [address] [id number] [place] [address] Oct, [facility] [place] [facility] [address] [id number] [place] [address] Oct, [facility] [place] [facility] [address] [id number] [place] [address] Sep, [facility] [place] [facility] [address] [id number] [place] [address] Sep, [facility] [place] [facility] [address] [facility] [id number] [place] [id number] Sep, [facility] [place] [facility] [address] [id number] [place] [address] Sep, [facility] [place] [facility] [address] [id number] [place] [address] Sep, [facility] [place] [facility] [address] [id number] [place] [address] Sep, [facility] [place] [facility] [address] [id number] [place] [address] Aug, [facility] [place] [facility] [address] [id number] [place] [address] Aug, [facility] [place] [facility] [address] [id number] [place] [address] Aug, [facility] [place] [facility] [address] [id number] [place] [address] Aug, [facility] [place] [facility] [address] [id number] [place] [address] Jul, [facility] [place] [facility] [address] [id number] [place] [address] Jul, [facility] [place] [facility] [address] [id number] [place] [address] Jul, [facility] [place] [facility] [address] [id number] [place] [address] Jul, [facility] [place] [facility] [address] [id number] [place] [address] Jun, [facility] [place] [facility] [address] [id number] [place] [address] Jun, [facility] [place] [facility] [address] [id number] [place] [address] May, [facility] [place] [facility] [address] [id number] [place] [address] May, [facility] [place] [facility] [address] [id number] [place] [address] May, [facility] [place] [facility] [address] [id number] [place] [address] May, [facility] [place] [facility] [address] [id number] [place] [address] May, [facility] [place] [facility] [address] [id number], [place] [address] 17 Apr, 2013 [facility] [place] [facility] [address] [id number] [place] [address] 10 Apr, 2013 [facility] [place] [facility] [address] [id number] [place] [address] 29 Mar, 2013 [facility] [place] [facility] [address] [id number] [place] [address] Mar, [facility] [place] [facility] [address] [id number] [place] [address] 15 Mar, 2013 [facility] [place] [facility] [address] [id number] [place] [address] Mar, [facility] [address] [id number] [place] [address] Feb, [facility] [address] [id number] [place] [address] Feb, [facility] [address] [id number] [place] [address] Feb, [facility] [address] [id number] [place] [address] Feb, [facility] [address] [id number] [place] [address] Feb, [facility] [address] [id number] [place] [address] Jan, [facility] [address] [id number] [place] [address] Jan, [facility] [address] [id number] [place] [address] Jan, [facility] [address] [id number] [place] [address] Jan, [facility] [address] [id number] [place] [address] Jan, [facility] [address] [id number] [place] [address] December, [facility] [address] [id number] [place] [address] December, [facility] [address] [id number] [place] [address] Nov, [facility] [address] [id number] [place] [address] Nov, [facility] [address] [id number] [place] [address] Oct, [facility] [address] [id number] [place] [address] 13 Oct, 2012 [facility] [place] [facility] [address] [id number] [place] [address] 05 Oct, 2012 [facility] [address] [id number] [place] [address] 14 Sep, 2012 [facility] [place] [facility] [address] [id number] [place] [address] 24 Aug, 2012 [facility] [address] [id number] [place] [address] 16 Aug, 2012 [facility] [address] [id number] [place] [address] Aug, [facility] [address] [id number] [place] [address] Aug, [facility] [address] [id number] [place] [address] Jul, [facility] [address] [id number] [place] [address] Jul, [facility] [address] [id number] [place] [address] Jul, [facility] [address] [id number], [place] [address] Jul, [facility] [place] [facility] [address] [id number], [place] [address] Jul, [facility] [place] [facility] [address] [id number] [place] [address] Jul, [facility] [place] [facility] [address] [id number] [place] [address] Jul, [facility] [place] [facility] [address] [id number] [place] [address] Jul, [facility] [place] [facility] [address] [id number] [place] [address] Jun, [facility] [place] [facility] [address] [id number] [place] [address] Jun, [facility] [place] [facility] [address] [id number] [place] [address] Jun, [facility] [place] [facility] [address] [facility] [id number] [place] [address] Jun, [facility] [place] [facility] [address] [id number] [place] [address] Jun, [facility] [place] [facility] [address] [id number] [place] [address] Jun, [facility] [place] [facility] [address] [id number] [place] [address] May, [facility] [place] [facility] [address] [id number] [place] [address] May, [facility] [place] [facility] [address] [id number] [place] [address] May, [facility] [place] [facility] [address] [id number] [place] [address] May, [facility] [place] [facility] [address] [facility] [id number] [place] [address] Apr, [facility] [place] [facility] [address] [id number] [place] [address] Apr, [facility] [place] [facility] [address] [id number] [place] [address] Mar, [facility] [place] [facility] [address] [id number] [place] [address] Jan, [facility] [place] [facility] [address] [facility] [id number] [place] [address] Jan, [facility] [place] [facility] [address] [facility] [id number] [place] [address] Jan, [facility] [place] [facility] [address] [id number] [place] [address] 15 Jan, 2012 [facility] [place] [facility] [address] [id number] [place] [address] Jan, [facility] [place] [facility] [address] [id number] [place] [address] Jan, [facility] [place] [facility] [address] [id number] [place] [address] Jan, [facility] [place] [facility] [address] [id number] [place] [address] December, [facility] [place] [facility] [address] [id number] [place] [address] December, [facility] [place] [facility] [address] [id number] [place] [address] December, [facility] [place] [facility] [address] [id number] [place] [address] December, [facility] [place] [facility] [address] [id number] [place] [address] Nov, [facility] [place] [facility] [address] [id number] [place] [address] Nov, [facility] [place] [facility] [address] [id number] [place] [address] Oct, [facility] [place] [facility] [address] [id number] [place] [address] Oct, [facility] [place] [facility] [address] [id number] [place] [address] Oct, [facility] [place] [facility] [address] [id number] [place] [address] Sep, [facility] [place] [facility] [address] [id number] [place] [address] Sep, [facility] [place] [facility] [address] [id number] [place] [address] Sep, [facility] [place] [facility] [address] [id number] [place] [address] Aug, [facility] [place] [facility] [address] [id number] [place] [address] Aug, [facility] [place] [facility] [address] [id number] [place] [address] Aug, [facility] [place] [facility] [address] [id number] [place] [address] Aug, [facility] [place] [facility] [address] [id number] [place] [address] Aug, [facility] [place] [facility] [address] [id number] [place] [address] Aug, [facility] [place] [facility] [address] [id number] [place] [address] Aug, [facility] [place] [facility] [address] [id number] [place] [address] Jul, [facility] [place] [facility] [address] [id number] [place] [address] Jul, [facility] [place] [facility] [address] [id number] [place] [address] Jun, [facility] [place] [facility] [address] [id number] [place] [address] 28 Jun, 2011 [facility] [place] [facility] [address] [id number] [place] [address] 17 Jun, 2011 [facility] [place] [facility] [address] [id number] [place] [address] 15 Jun, 2011 [facility] [place] [facility] [address] [id number] [place] [address] 14 Jun, 2011 [facility] [place] [facility] [address] [id number] [place] [address] 14 Jun, 2011 [facility] [place] [facility] [address] [id number] [place] [address] 07 Jun, 2011 [facility] [place] [facility] [address] [id number] [place] [address] Jun, [facility] [place] [facility] [address] [id number] [place] [address] Jun, [facility] [place] [facility] [address] [id number] [place] [address] Jun, [facility] [place] [facility] [address] [id number] [place] [address] May, [facility] [place] [facility] [address] [id number] [place] [address] May, [facility] [place] [facility] [address] [id number] [place] [address] May, [facility] [place] [facility] [address] [id number] [place] [address] May, [facility] [address] [id number] [place] [address] May, [facility] [place] [facility] [address] [id number] [place] [address] May, [facility] [place] [facility] [address] [id number] [place] [address] Feb, [facility] [place] [facility] [address] [id number] [place] [address] December, [facility] [place] [facility] [address] [id number] [place] [address] Jul, [facility] [place] [facility] [address] [id number] [place] [address] Jul, [facility] [place] [facility] [address] [id number] [place] [address] Jul, [facility] [place] [facility] [address] [id number] [place] [address] Jul, [facility] [address], [place] [address] Jun, [facility] [address], [place] [address] Jul, [facility] [address], [place] [address] Jul, [facility] [id number] [place] [address] Jul, [facility] [address], [place] [address] Jul, [facility] [id number] [place] [address] Jul, [facility] [id number] [place] [address] Jul, [facility] [id number] [place] [address] Jan, [facility] [address], [place] [address] Sep, [facility] [address], [place] [address] Sep, IMMUNIZATIONS No Known Immunizations SOCIAL HISTORY Never Assessed REASON FOR VISIT Restorative PLAN OF CARE Activity Details Follow Up Endo 1.5 hr #18 and 19 please block next to it Reason: VITAL SIGNS Height 66 in 2017-04-04 Heart Rate 77 bpm 2017-04-04 Blood pressure systolic 141 mmHg 2017-04-04 Blood pressure diastolic 70 mmHg 2017-04-04 MEDICATIONS Medication Instructions Dosage Frequency Start Date End Date Duration Status Clindamycin HCl 150 MG Orally every 8 hrs 1 capsules 8h 10 days Active RESULTS No Results PROCEDURES Procedure Date Ordered Result Body Site LTD ORAL EVALUATION - PROBLEM FOCUS Apr 04, 2017 Billing Notes on claim Apr 04, 2017 INSTRUCTIONS MEDICATIONS ADMINISTERED No Known Medications [...]
--- OUTSIDE RECORDS SUMMARY | 2019-01-22 21:24 | XMS REPORT ---
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 Name Role Phone ENMA SAMSON Unavailable PROBLEMS Type Condition ICD9-CM Code SEB64-FI Code Onset Dates Condition Status SNOMED Code Problem Family history of diabetes mellitus Z83.3 Active 789808997 Problem Hot flashes N95.1 Active 995611226 Problem Excessive and frequent menstruation with irregular cycle N92.1 Active 606463630 Problem Diverticulitis K57.92 Active 810657734 Problem Gastroesophageal reflux disease with esophagitis K21.0 Active 179873301 Problem Mitral valve prolapse I34.1 Active 312729114 Problem Perimenopausal N95.1 Active 930279941832075 Problem Tachycardia R00.0 Active 7954048 Problem Abnormal uterine bleeding (AUB) N93.9 Active 56973981118049 Problem History of diverticulitis Z87.19 Active 831547278349684 Problem History of colon polyps Z86.010 Active 060598940 Problem Generalized anxiety disorder F41.1 Active 184424185 Problem Dense breast tissue R92.2 Active 547985762 Problem Hypertension I10 Active 59680677 Problem History of ovarian cyst Z87.42 Active 46041486 ALLERGIES Substance Reaction Event Type Date Status Sulfamethoxazole-Trimethoprim anaphylaxis Drug Allergy Apr, Active Erythromycin rash Drug Allergy Apr, Active Hydrocodone vomiting Non Drug Allergy Apr, Active ENCOUNTERS Encounter Location Date Diagnosis [facility] [address] [facility] [id number] [address] Jan, [facility] [address] [facility] [id number] [address] December, [facility] [address] [id number], [place] [address] Oct, Encounter for dental examination Z01.20 [facility] [address] [id number], [place] [address] 06 Oct, 2017 Encounter for dental examination Z01.20 [facility] [address] [id number], [place] [address] Oct, Dental examination Z01.20 [facility] [id number] [place] [address] Oct, Generalized anxiety disorder F41.1 [facility] [id number] [place] [address] Aug, Dental examination Z01.20 [facility] [id number] [place] [address] Aug, Generalized anxiety disorder F41.1 [facility] [id number] [place] [address] Aug, [facility] [address] [place] [id number] [place] [address] Aug, Encounter for dental examination Z01.20 [facility] [id number] [place] [address] Aug, Subacute maxillary sinusitis J01.00 [facility] [id number], [place] [address] Jul, Dental examination Z01.20 [facility] [id number] [place] [address] Jul, Generalized anxiety disorder F41.1 [facility] [id number] [place] [address] 11 Jul, 2017 Diverticulitis K57.92 [facility] [id number] [place] [address] Jun, Encounter for immunization Z23 [facility] [address] [place] [id number] [place] [address] Jun, Dental examination Z01.20 [facility] [address] [id number][place] [address] Jun, Generalized anxiety disorder F41.1 [facility] [address] [id number], [place] [address] Jun, Dental examination Z01.20 [facility] [address] [id number] [place] [address] May, [facility] [address] [id number] [place] [id number] May, Dental examination Z01.20 [facility] [address] [id number] [place] [address] [id number] May, Dental examination Z01.20 [facility] [address] [id number], [place] [address] May, Dental examination Z01.20 [facility] [address] [id number] [place] [address] May, [facility] [id number] [place] [address] May, Generalized anxiety disorder F41.1 [facility] [id number] [place] [address] May, Localized edema R60.0 ; Yeast vaginitis B37.3 and Gastroesophageal reflux disease with esophagitis K21.0 [facility] [address] [id number][place] [id number] Apr, Dental examination Z01.20 [facility] [address] [id number], [place] [address] Apr, Dental examination Z01.20 [facility] [address] [id number], [place] [address] 05 Apr, 2017 Dental examination Z01.20 [facility] [id number] [place] [address] Mar, Dyspepsia R10.13 [facility] [id number] [place] [address] Mar, Generalized anxiety disorder F41.1 [facility] [address] [id number], [place] [address] Mar, Encounter for dental examination Z01.20 [facility] [address] [id number] [place] [id number] Mar, [facility] [id number] [place] [address] [id number] Mar, Dental examination Z01.20 [facility] [id number] [place] [address] Feb, Hypertension I10 and Tachycardia R00.0 [facility] [id number] [place] [address] Feb, [facility] [address] [place] [address] Feb, Generalized anxiety disorder F41.1 [facility] [address] [place] [address] [id number] Feb, Dental examination Z01.20 [facility] [address] [place] [address] Jan, Generalized anxiety disorder F41.1 [facility] [address] [address] December, Generalized anxiety disorder F41.1 [facility] [address] [place] [address] [id number] December, Encounter for dental examination Z01.20 [facility] [address] [place] [address] Nov, [facility] [address] [place] [address] Nov, [facility] [address] [place] [address] Nov, Generalized anxiety disorder F41.1 [facility] [id number] [place] [address] 30 Oct, 2016 [facility] [address] [place] [address] [id number] Oct, Dental examination Z01.20 [place] [id number] [place] [address] Oct, Vaginal dryness N89.8 [place] [address] [address] Oct, Pseudoseizures F44.5 [place] [id number] [place] [address] Oct, Generalized anxiety disorder F41.1 [place] [id number] [place] [address] 28 Sep, 2016 Abnormal uterine bleeding (AUB) N93.9 ; Vaginal dryness N89.8 and Screening breast examination Z12.39 [place] [id number] [place] [address] 20 Sep, 2016 Dental examination Z01.20 [place] [id number] [place] [address] Sep, Generalized anxiety disorder F41.1 [place] [id number] [place] [address] 06 Sep, 2016 Unspecified ovarian cyst, right side N83.201 ; Unspecified ovarian cyst, left side N83.202 ; Yeast infection of the vagina B37.3 ; Mitral valve prolapse I34.1 and Hypertension I10 [place] [address] [place] [address] Aug, Generalized anxiety disorder F41.1 [place] [id number] [place] [address] Jul, [facility] [id number] [place] [address] Jul, Generalized anxiety disorder F41.1 [facility] [id number] [place] [address] Jun, Generalized anxiety disorder F41.1 [facility] [address] [address] May, Encounter for immunization Z23 [facility] [address] [address] 17 May, 2016 Generalized anxiety disorder F41.1 and Depressive disorder, not elsewhere classified F32.9 [facility] [id number] [place] [address] 28 Apr, 2016 Hypertension I10 [facility] [address] [address] 22 Apr, 2016 Cervicalgia M54.2 [facility] [id number] [place] [address] 12 Apr, 2016 Cervicalgia M54.2 [facility] [id number] [place] [address] 09 Mar, 2016 Generalized anxiety disorder F41.1 and Depressive disorder, not elsewhere classified F32.9 [facility] [id number] [place] [address] [id number] 14 Feb, 2016 Visit for dental examination Z01.20 [facility] [id number] [place] [address] 11 Feb, 2016 Pseudoseizures F44.5 ; Migraine without status migrainosus, not intractable, unspecified migraine type G43.909 and Essential hypertension I10 [facility] [id number] [place] [address] [id number] 06 Feb, 2016 Dental examination Z01.20 [facility] [address] [address] Feb, Generalized anxiety disorder F41.1 and Depressive disorder, not elsewhere classified F32.9 [place] [id number] [place] [address] Jan, Tachycardia R00.0 [place] [id number] [place] [address] December, Eustachian tube dysfunction, bilateral H69.83 [place] [id number] [place] [address] December, Generalized anxiety disorder F41.1 and Depressive disorder, not elsewhere classified F32.9 [place] [id number] [place] [address] Nov, [place] [id number] [place] [address] Nov, [place] [id number] [place] [address] Nov, Hypertension I10 ; Onychomycosis B35.1 ; [...] and Complex cyst of left ovary N83.29 [place] [address] [place] [address] Nov, Sinusitis J32.9 [place] [id number] [place] [address] Oct, Complex cyst of left ovary N83.29 [place] [id number] [place] [address] Oct, Onychomycosis B35.1 [place] [address] [place] [address] [id number] 17 Oct, 2015 Dental examination Z01.20 [place] [id number] [place] [address] 09 Oct, 2016 Well woman exam Z01.419 [...] R92.2 and History of colon polyps Z86.010 [place] [id number] [place] [address] Oct, Generalized anxiety disorder F41.1 and Depressive disorder, not elsewhere classified F32.9 [place] [id number] [place] [address] Sep, Hypertension I10 and Onychomycosis B35.1 [place] [address] [address] 16 Sep, 2015 Skin tags, multiple acquired L91.8 [place] [id number] [place] [address] Aug, [place] [id number] [place] [address] Aug, [place] [id number] [place] [address] Aug, [place] [id number] [place] [address] Aug, Generalized anxiety disorder F41.1 and Depressive disorder, not elsewhere classified F32.9 [place] [id number] [place] [address] Jul, Skin lesion L98.9 [facility] [address] [place] [address] Jun, Generalized anxiety disorder F41.1 and Depressive disorder, not elsewhere classified F32.9 [facility] [id number] [place] [address] Jun, [facility] [id number] [place] [address] Jun, Generalized anxiety disorder F41.1 [facility] [id number] [place] [address] May, Encounter for immunization Z23 and Right shoulder pain M25.511 [facility] [id number] [place] [address] Apr, [facility] [id number] [place] [address] Apr, Generalized anxiety disorder 300.02 and Depressive disorder, not elsewhere classified 311 [facility] [address] [place] [address] [id number] Mar, Dental examination V72.2 [facility] [id number] [place] [address] Mar, Generalized anxiety disorder 300.02 and Depressive disorder, not elsewhere classified 311 [facility] [address] [place] [address] Mar, Depression, major, recurrent, 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.35 and 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 [facility] [id number] [place] [address] Feb, Generalized anxiety disorder 300.02 and Depressive disorder, not elsewhere classified 311 [facility] [address] [place] [address] [id number] Feb, Dental examination V72.2 [facility] [id number] [place] [address] Jan, Generalized anxiety disorder 300.02 and Depressive disorder, not elsewhere classified 311 [facility] [address] [address] Jan, [facility] [id number] [place] [address] December, Generalized anxiety disorder 300.02 and Depressive disorder, not elsewhere classified 311 [facility] [id number] [place] [address] December, Major depressive disorder, recurrent, unspecified 296.30 and Panic disorder with agoraphobia 300.21 [facility] [id number] [place] [address] Nov, [facility] [id number] [place] [address] Nov, [facility] [id number] [place] [address] Oct, [facility] [address] [address] Oct, [facility] [address] [place] [address] Oct, [facility] [address] [address] Oct, [facility] [address] [address] Sep, [facility] [address] [address] Sep, [facility] [address] [address] Sep, [facility] [address] [address] Sep, [facility] [address] [place] [address] Sep, 2014 [facility] [place] [facility] [address] [id number] [place] [address] Sep, 2014 [facility] [place] [facility] [address] [id number] [place] [address] Sep, 2014 [facility] [place] [facility] [address] [id number] [place] [address] Sep, 2014 [facility] [place] [facility] [address] [id number] [place] [address] Sep, 2014 [facility] [place] [facility] [address] [id number] [place] [address] Sep, 2014 [facility] [place] [facility] [address] [id number] [place] [address] Aug, [facility] [place] [facility] [address] [id number] [place] [address] Aug, [facility] [place] [facility] [address] [id number] [place] [address] Jul, [facility] [place] [facility] [address] [id number] [place] [address] Jul, [facility] [place] [facility] [address] [facility] [id number] [place] [address] 18 Jul, 2014 [facility] [place] [facility] [address] [id number] [place] [address] 18 Jul, 2014 [facility] [place] [facility] [address] [id number] [place] [address] Jul, [facility] [place] [facility] [address] [id number] [place] [address] Jul, [facility] [place] [facility] [address] [id number] [place] [address] 05 Jul, 2014 [facility] [place] [facility] [address] [facility] [id number] [place] [address] 05 Jul, 2014 [facility] [place] [facility] [address] [id number] [place] [address] Jul, [facility] [place] [facility] [address] [id number] [place] [address] Jul, [facility] [place] [facility] [address] [id number] [place] [address] Jul, [facility] [place] [facility] [address] [id number] [place] [address] Jul, [facility] [place] [facility] [address] [id number] [place] [address] Jun, [facility] [place] [facility] [address] [id number] [place] [address] Jun, [facility] [place] [facility] [address] [id number] [place] [address] May, [facility] [place] [facility] [address] [id number] [place] [address] May, [facility] [place] [facility] [address] [id number] [place] [address] May, [facility] [place] [facility] [address] [id number] [place] [address] May, [facility] [place] [facility] [address] [id number] [place] [address] May, [facility] [place] [facility] [address] [id number] [place] [address] May, [facility] [place] [facility] [address] [id number] [place] [address] May, [facility] [place] [facility] [address] [id number] [place] [address] May, [facility] [place] [facility] [address] [id number] [place] [address] May, [facility] [place] [facility] [address] [id number] [place] [address] May, [facility] [place] [facility] [address] [id number] [place] [address] May, [facility] [place] [facility] [address] [id number] [place] [address] May, [facility] [place] [facility] [address] [id number] [place] [address] Apr, [facility] [place] [facility] [address] [id number] [place] [address] Apr, [facility] [place] [facility] [address] [id number] [place] [address] Apr, [facility] [place] [facility] [address] [id number] [place] [address] Apr, [facility] [place] [facility] [address] [id number] [place] [address] Apr, [facility] [place] [facility] [address] [id number] [place] [address] Apr, [facility] [place] [facility] [address] [id number] [place] [address] Feb, [facility] [place] [facility] [address] [id number] [place] [address] Feb, [facility] [place] [facility] [address] [id number] [place] [address] Feb, [facility] [place] [facility] [address] [id number] [place] [address] Feb, [facility] [place] [facility] [address] [id number] [place] [address] Feb, [facility] [place] [facility] [address] [id number] [place] [address] Feb, [facility] [place] [facility] [address] [id number] [place] [address] Jan, [facility] [place] [facility] [address] [id number] [place] [address] Jan, [facility] [place] [facility] [address] [id number] [place] [address] Jan, [facility] [place] [facility] [address] [id number] [place] [address] Jan, [facility] [place] [facility] [address] [id number] [place] [address] Jan, [facility] [place] [facility] [address] [id number] [place] [address] Jan, [facility] [place] [facility] [address] [id number] [place] [address] Jan, [facility] [place] [facility] [address] [id number] [place] [address] Jan, [facility] [place] [facility] [address] [id number] [place] [address] December, [facility] [place] [facility] [address] [id number] [place] [address] December, [facility] [place] [facility] [address] [id number] [place] [address] December, [facility] [place] [facility] [address] [id number] [place] [address] December, [facility] [place] [facility] [address] [id number] [place] [address] Nov, [facility] [place] [facility] [address] [id number] [place] [address] Nov, [facility] [place] [facility] [address] [id number] [place] [address] Nov, [facility] [place] [facility] [address] [id number] [place] [address] Nov, [facility] [place] [facility] [address] [id number] [place] [address] Nov, [facility] [place] [facility] [address] [id number] [place] [address] Nov, [facility] [place] [facility] [address] [id number] [place] [address] Nov, [facility] [place] [facility] [address] [id number] [place] [address] Nov, [facility] [place] [facility] [address] [id number] [place] [address] Oct, [facility] [place] [facility] [address] [id number] [place] [address] Oct, [facility] [place] [facility] [address] [id number] [place] [address] Sep, [facility] [place] [facility] [address] [id number] [place] [address] Sep, [facility] [place] [facility] [address] [facility] [id number] [place] [id number] Sep, [facility] [place] [facility] [address] [id number] [place] [address] Sep, [facility] [place] [facility] [address] [id number] [place] [address] Sep, [facility] [place] [facility] [address] [id number] [place] [address] Sep, [facility] [place] [facility] [address] [id number] [place] [address] Aug, [facility] [place] [facility] [address] [id number] [place] [address] Aug, [facility] [place] [facility] [address] [id number] [place] [address] Aug, [facility] [place] [facility] [address] [id number] [place] [address] Aug, [facility] [place] [facility] [address] [id number] [place] [address] Jul, [facility] [place] [facility] [address] [id number] [place] [address] Jul, [facility] [place] [facility] [address] [id number] [place] [address] Jul, [facility] [place] [facility] [address] [id number] [place] [address] Jul, [facility] [place] [facility] [address] [id number] [place] [address] Jun, [facility] [place] [facility] [address] [id number] [place] [address] Jun, [facility] [place] [facility] [address] [id number] [place] [address] May, [facility] [place] [facility] [address] [id number] [place] [address] May, [facility] [place] [facility] [address] [id number] [place] [address] May, [facility] [place] [facility] [address] [id number] [place] [address] May, [facility] [place] [facility] [address] [id number] [place] [address] May, [facility] [place] [facility] [address] [id number] [address] 17 Apr, 2013 [facility] [place] [facility] [address] [id number] [place] [address] 10 Apr, 2013 [facility] [place] [facility] [address] [id number] [place] [address] 29 Mar, 2013 [facility] [place] [facility] [address] [id number] [place] [address] Mar, [facility] [place] [facility] [address] [id number] [place] [address] 15 Mar, 2013 [facility] [place] [facility] [address] [id number] [place] [address] Mar, [facility] [address] [id number] [place] [address] Feb, [facility] [address] [id number] [place] [address] Feb, [facility] [address] [id number] [place] [address] Feb, [facility] [address] [id number] [place] [address] Feb, [facility] [address] [id number] [place] [address] Feb, [facility] [address] [id number] [place] [address] Jan, [facility] [address] [id number] [place] [address] Jan, [facility] [address] [id number] [place] [address] Jan, [facility] [address] [id number] [place] [address] Jan, [facility] [address] [id number] [place] [address] Jan, [facility] [address] [id number] [place] [address] December, [facility] [address] [id number] [place] [address] December, [facility] [address] [id number] [place] [address] Nov, [facility] [address] [id number] [place] [address] Nov, [facility] [address] [id number] [place] [address] Oct, [facility] [address] [id number] [place] [address] 13 Oct, 2012 [facility] [place] [facility] [address] [id number] [place] [address] 05 Oct, 2012 [facility] [address] [id number] [place] [address] 14 Sep, 2012 [facility] [place] [facility] [address] [id number] [place] [address] 24 Aug, 2012 [facility] [address] [id number] [place] [address] 16 Aug, 2012 [facility] [address] [id number] [place] [address] Aug, [facility] [address] [id number] [place] [address] Aug, [facility] [address] [id number] [place] [address] Jul, [facility] [address] [id number] [place] [address] Jul, [facility] [address] [id number] [place] [address] Jul, [facility] [address] [id number] [address] Jul, [facility] [place] [facility] [address] [id number][place] [address] Jul, [facility] [place] [facility] [address] [id number] [place] [address] Jul, [facility] [place] [facility] [address] [id number] [place] [address] Jul, [facility] [place] [facility] [address] [id number] [place] [address] Jul, [facility] [place] [facility] [address] [id number] [place] [address] Jun, [facility] [place] [facility] [address] [id number] [place] [address] Jun, [facility] [place] [facility] [address] [id number] [place] [address] Jun, [facility] [place] [facility] [address] [facility] [id number] [place] [address] Jun, [facility] [place] [facility] [address] [id number] [place] [address] Jun, [facility] [place] [facility] [address] [id number] [place] [address] Jun, [facility] [place] [facility] [address] [id number] [place] [address] May, [facility] [place] [facility] [address] [id number] [place] [address] May, [facility] [place] [facility] [address] [id number] [place] [address] May, [facility] [place] [facility] [address] [id number] [place] [address] May, [facility] [place] [facility] [address] [facility] [id number] [place] [address] Apr, [facility] [place] [facility] [address] [id number] [place] [address] Apr, [facility] [place] [facility] [address] [id number] [place] [address] Mar, [facility] [place] [facility] [address] [id number] [place] [address] Jan, [facility] [place] [facility] [address] [facility] [id number] [place] [address] Jan, [facility] [place] [facility] [address] [facility] [id number] [place] [address] Jan, [facility] [place] [facility] [address] [id number] [place] [address] 15 Jan, 2012 [facility] [place] [facility] [address] [id number] [place] [address] Jan, [facility] [place] [facility] [address] [id number] [place] [address] Jan, [facility] [place] [facility] [address] [id number] [place] [address] Jan, [facility] [place] [facility] [address] [id number] [place] [address] December, [facility] [place] [facility] [address] [id number] [place] [address] December, [facility] [place] [facility] [address] [id number] [place] [address] December, [facility] [place] [facility] [address] [id number] [place] [address] December, [facility] [place] [facility] [address] [id number] [place] [address] Nov, [facility] [place] [facility] [address] [id number] [place] [address] Nov, [facility] [place] [facility] [address] [id number] [place] [address] Oct, [facility] [place] [facility] [address] [id number] [place] [address] Oct, [facility] [place] [facility] [address] [id number] [place] [address] Oct, [facility] [place] [facility] [address] [id number] [place] [address] Sep, [facility] [place] [facility] [address] [id number] [place] [address] Sep, [facility] [place] [facility] [address] [id number] [place] [address] Sep, [facility] [place] [facility] [address] [id number] [place] [address] Aug, [facility] [place] [facility] [address] [id number] [place] [address] Aug, [facility] [place] [facility] [address] [id number] [place] [address] Aug, [facility] [place] [facility] [address] [id number] [place] [address] Aug, [facility] [place] [facility] [address] [id number] [place] [address] Aug, [facility] [place] [facility] [address] [id number] [place] [address] Aug, [facility] [place] [facility] [address] [id number] [place] [address] Aug, [facility] [place] [facility] [address] [id number] [place] [address] Jul, [facility] [place] [facility] [address] [id number] [place] [address] Jul, [facility] [place] [facility] [address] [id number] [place] [address] Jun, [facility] [place] [facility] [address] [id number] [place] [address] 28 Jun, 2011 [facility] [place] [facility] [address] [id number] [place] [address] 17 Jun, 2011 [facility] [place] [facility] [address] [id number] [place] [address] 15 Jun, 2011 [facility] [place] [facility] [address] [id number] [place] [address] 14 Jun, 2011 [facility] [place] [facility] [address] [id number] [place] [address] 14 Jun, 2011 [facility] [place] [facility] [address] [id number] [place] [address] 07 Jun, 2011 [facility] [place] [facility] [address] [id number] [place] [address] Jun, [facility] [place] [facility] [address] [id number] [place] [address] Jun, [facility] [place] [facility] [address] [id number] [place] [address] Jun, [facility] [place] [facility] [address] [id number] [place] [address] May, [facility] [place] [facility] [address] [id number] [place] [address] May, [facility] [place] [facility] [address] [id number] [place] [address] May, [facility] [place] [facility] [address] [id number] [place] [address] May, [facility] [address] [id number] [place] [address] May, [facility] [place] [facility] [address] [id number] [place] [address] May, [facility] [place] [facility] [address] [id number] [place] [address] Feb, [facility] [place] [facility] [address] [id number] [place] [address] December, [facility] [place] [facility] [address] [id number] [place] [address] Jul, [facility] [place] [facility] [address] [id number] [place] [address] Jul, [facility] [place] [facility] [address] [id number] [place] [address] Jul, [facility] [place] [facility] [address] [id number] [place] [address] Jul, [facility] [id number] [address] Jun, [facility] [id number] [address] Jul, [facility] [id number] [address] Jul, [facility] [id number] [address] Jul, [facility] [id number] [address] Jul, [facility] [id number] [address] Jul, [facility] [id number] [address] Jul, [facility] [id number] [address] Jan, [facility] [id number] [address] Sep, [facility] [id number] [address] Sep, IMMUNIZATIONS No Known Immunizations SOCIAL HISTORY Never Assessed REASON FOR VISIT RCT PLAN OF CARE Activity Details Follow Up RCT Reason: VITAL SIGNS Heart Rate 50 bpm 2017-04-29 Blood pressure systolic 116 mmHg 2017-04-29 Blood pressure diastolic 68 mmHg 2017-04-29 MEDICATIONS Medication Instructions Dosage Frequency Start Date End Date Duration Status Omeprazole 20 mg Orally Once a day, ac 1 capsule Mar, 30 day(s) Active Sankqisslt-TTRR-Yanuriac 50-325-40 MG Orally and then 1 capsule every 4 hrs PRN not to exceed 6 capsules in 24 hrs 2 capsules at onset of headache Feb, Active Flonase 50 mcg/actuation 2 Nasal [place] by Nasal route 1 time per day May, Active Carafate 1 GM/10ML Orally 3 times a day, ac 10 ml Mar, Apr, 30 day(s) Active Diflucan 150 MG Orally Once a day 1 tablet now and in 3 days if needed 24h Sep, 1 dose Active Clorazepate Dipotassium 7.5 MG Orally 4 times a day 1 tablet as needed 6h 90 days Active InnoPran XL 120 MG Orally Once a day 1 capsule at bedtime 24h Active Propranolol HCl 20 mg Orally Once a day as needed for arrhythmia 1 tablet Sep, 30 day(s) Active Zofran 4 MG Orally every 8 hours, PRN 1 tablets Apr, 30 days Active Hyoscyamine Sulfate 0.125 mg 1 tablet by Oral route 4 times per day PRN Jul, Active InnoPran XL 80 MG Orally Once a day. Take along with 120mg 1 capsule at bedtime May, Active Magic Mouthwash Apply medicated swab to sore areas of the mouth to numb the pain As needed Dip cotton swab into medication Mar, As needed Active Vagifem 10 MCG Vaginal once weekly 1 tablet Oct, Active Hydrochlorothiazide 12.5 MG TAKE ONE TO TWO CAPSULES BY MOUTH ONCE DAILY NEEDED FOR SWELLING Active RESULTS No Results PROCEDURES Procedure Date Ordered Result Body Site Dental no charge Apr 29, 2017 INSTRUCTIONS MEDICATIONS ADMINISTERED No Known Medications [...]
--- OUTSIDE RECORDS SUMMARY | 2019-01-22 21:25 | XMS REPORT ---
Author Author ENMA CHU Organization [facility] Address [address] [address] Care Team Providers Care Manager Money Name Role Phone ENMA CHU Unavailable PROBLEMS Type Condition ICD9-CM Code OPF15-NN Code Onset Dates Condition Status SNOMED Code Problem Family history of diabetes mellitus Z83.3 Active 488914232 Problem Hot flashes N95.1 Active 870276096 Problem Excessive and frequent menstruation with irregular cycle N92.1 Active 924214956 Problem Diverticulitis K57.92 Active 612174642 Problem Gastroesophageal reflux disease with esophagitis K21.0 Active 107729350 Problem Mitral valve prolapse I34.1 Active 167024594 Problem Perimenopausal N95.1 Active 079583428858364 Problem Tachycardia R00.0 Active 3650339 Problem Abnormal uterine bleeding (AUB) N93.9 Active 41361250641157 Problem History of diverticulitis Z87.19 Active 182393533803202 Problem History of colon polyps Z86.010 Active 999969355 Problem Generalized anxiety disorder F41.1 Active 690032658 Problem Dense breast tissue R92.2 Active 795657038 Problem Hypertension I10 Active 27964436 Problem History of ovarian cyst Z87.42 Active 37312718 ALLERGIES Substance Reaction Event Type Date Status Sulfamethoxazole-Trimethoprim anaphylaxis Drug Allergy Jun, Active Erythromycin rash Drug Allergy Jun, Active Hydrocodone vomiting Non Drug Allergy Jun, Active ENCOUNTERS Encounter Location Date Diagnosis [facility] [place] [address] [facility] [id number], [place] [address] Jan, [facility] [place] [address] [id number] [address] Jan, [facility] [place] [address] [facility] [id number], [place] [address] December, [facility] [place] [address] [id number], [place] [address] December, Hypertension I10 [facility] [place] [id number] [place] [address] December, Generalized anxiety disorder F41.1 [facility] [address] [id number], [place] [address] 16 Oct, 2017 Encounter for dental examination Z01.20 [facility] [address] [id number], [place] [address] 06 Oct, 2017 Encounter for dental examination Z01.20 [facility] [id number] [place] [address] 02 Oct, 2017 Dental examination Z01.20 [facility] [place] [address] [id number] [address] Oct, Generalized anxiety disorder F41.1 [facility] [id number] [place] [address] Aug, Dental examination Z01.20 [facility] [place] [address] [id number], [place] [address] Aug, Generalized anxiety disorder F41.1 [facility] [place] [address] [id number] [address] Aug, [facility] [address] [id number], [place] [address] Aug, Encounter for dental examination Z01.20 [facility] [place] [address] [id number], [place] [address] Aug, Subacute maxillary sinusitis J01.00 [facility] [address] [id number], [place] [address] Jul, Dental examination Z01.20 [facility] [place] [address] [id number], [place] [address] Jul, Generalized anxiety disorder F41.1 [facility] [place] [address] [id number], [place] [address] Jul, Diverticulitis K57.92 [facility] [place] [address] [id number] [address] Jun, Encounter for immunization Z23 [facility] [address] [id number], [place] [address] Jun, Dental examination Z01.20 [facility] [place] [address] [place] [address] 14 Jun, 2017 Generalized anxiety disorder F41.1 [facility] [address] [id number], [place] [address] Jun, Dental examination Z01.20 [facility] [place] [id number] [place] [address] May, [facility] [id number] [place] [address] [id number] May, Dental examination Z01.20 [facility] [id number] [place] [address] [id number] May, Dental examination Z01.20 [facility] [id number] [place] [address] May, Dental examination Z01.20 [facility] [place] [id number] [place] [address] May, [facility] [place] [id number] [place] [address] May, Generalized anxiety disorder F41.1 [facility] [place] [id number] [place] [address] May, Localized edema R60.0 ; Yeast vaginitis B37.3 and Gastroesophageal reflux disease with esophagitis K21.0 [facility] [id number] [place] [address] [id number] Apr, Dental examination Z01.20 [facility] [address] [id number], [place] [address] Apr, Dental examination Z01.20 [facility] [address] [id number], [place] [address] 05 Apr, 2017 Dental examination Z01.20 [facility] [place] [address] [id number] [address] Mar, Dyspepsia R10.13 [facility] [place] [id number] [place] [address] Mar, Generalized anxiety disorder F41.1 [facility] [address] [id number], [place] [address] Mar, Encounter for dental examination Z01.20 [facility] [id number] [place] [id number] Mar, [facility] [id number] [place] [address] [id number] Mar, Dental examination Z01.20 [facility] [place] [id number] [place] [address] Feb, Hypertension I10 and Tachycardia R00.0 [facility] [address] [id number], [place] [address] Feb, [facility] [place] [address] [id number], [place] [address] Feb, Generalized anxiety disorder F41.1 [facility] [id number] [place] [address] [id number] Feb, Dental examination Z01.20 [facility] [place] [id number] [place] [address] Jan, Generalized anxiety disorder F41.1 [facility] [place] [address] [id number], [place] [address] December, Generalized anxiety disorder F41.1 [facility] [address] [id number] December, Encounter for dental examination Z01.20 [facility] [place] [id number] [place] [address] Nov, [facility] [place] [id number] [place] [address] Nov, [facility] [place] [id number] [place] [address] Nov, Generalized anxiety disorder F41.1 [facility] [place] [id number] [place] [address] Oct, [facility] [id number] [place] [address] [id number] Oct, Dental examination Z01.20 [facility] [place] [id number] [place] [address] Oct, Vaginal dryness N89.8 [facility] [place] [id number] [place] [address] Oct, Pseudoseizures F44.5 [facility] [place] [id number] [place] [address] Oct, Generalized anxiety disorder F41.1 [facility] [place] [id number] [place] [address] Sep, Abnormal uterine bleeding (AUB) N93.9 ; Vaginal dryness N89.8 and Screening breast examination Z12.39 [facility] [place] [address] [place] [address] Sep, Dental examination Z01.20 [facility] [place] [id number] [place] [address] Sep, Generalized anxiety disorder F41.1 [facility] [place] [address] [place] [address] 06 Sep, 2016 Unspecified ovarian cyst, right side N83.201 ; Unspecified ovarian cyst, left side N83.202 ; Yeast infection of the vagina B37.3 ; Mitral valve prolapse I34.1 and Hypertension I10 [facility] [place] [address] [place] [address] Aug, Generalized anxiety disorder F41.1 [facility] [place] [id number] [place] [address] Jul, [facility] [place] [id number] [place] [address] Jul, Generalized anxiety disorder F41.1 [facility] [place] [id number] [place] [address] Jun, Generalized anxiety disorder F41.1 [facility] [place] [id number] [place] [address] 28 May, 2016 Encounter for immunization Z23 [facility] [place] [id number] [place] [address] 17 May, 2016 Generalized anxiety disorder F41.1 and Depressive disorder, not elsewhere classified F32.9 [facility] [place] [id number] [place] [address] 28 Apr, 2016 Hypertension I10 [facility] [place] [id number] [place] [address] 22 Apr, 2016 Cervicalgia M54.2 [facility] [id number] [place] [address] 12 Apr, 2016 Cervicalgia M54.2 [facility] [place] [id number] [place] [address] 09 Mar, 2016 Generalized anxiety disorder F41.1 and Depressive disorder, not elsewhere classified F32.9 [facility] [address] [place] [address] [id number] 14 Feb, 2016 Visit for dental examination Z01.20 [facility] [place] [id number] [place] [address] 11 Feb, 2016 Pseudoseizures F44.5 ; Migraine without status migrainosus, not intractable, unspecified migraine type G43.909 and Essential hypertension I10 [facility] [address] [place] [address] [id number] 06 Feb, 2016 Dental examination Z01.20 [facility] [place] [id number] [place] [address] 05 Feb, 2016 Generalized anxiety disorder F41.1 and Depressive disorder, not elsewhere classified F32.9 [address] [place] [id number] [place] [address] Jan, Tachycardia R00.0 [address] [id number] [place] [address] December, Eustachian tube dysfunction, bilateral H69.83 [address] [id number] [place] [address] December, Generalized anxiety disorder F41.1 and Depressive disorder, not elsewhere classified F32.9 [address] [id number] [place] [address] Nov, [address] [id number] [place] [address] 28 Nov, 2015 [address] [place] [id number] [place] [address] Nov, Hypertension I10 ; Onychomycosis B35.1 ; [...] and Complex cyst of left ovary N83.29 [facility] [place] [id number] [place] [address] 14 Nov, 2015 Sinusitis J32.9 [address] [id number] [place] [address] Oct, Complex cyst of left ovary N83.29 [address] [id number] [place] [address] Oct, Onychomycosis B35.1 [facility] [address] [id number] 17 Oct, 2015 Dental examination Z01.20 [address] [place] [address] [address] 09 Oct, 2015 Well woman exam Z01.419 [...] R92.2 and History of colon polyps Z86.010 [place] [id number] [place] [address] Oct, Generalized anxiety disorder F41.1 and Depressive disorder, not elsewhere classified F32.9 [address] [id number] [place] [address] Sep, Hypertension I10 and Onychomycosis B35.1 [address] [place] [id number] [place] [address] Sep, Skin tags, multiple acquired L91.8 [place] [id number] [place] [address] Aug, [address] [id number] [place] [address] Aug, [address] [id number] [place] [address] Aug, [facility] [place] [id number] [place] [address] Aug, Generalized anxiety disorder F41.1 and Depressive disorder, not elsewhere classified F32.9 [facility] [place] [id number] [place] [address] Jul, Skin lesion L98.9 [facility] [place] [address] [address] Jun, Generalized anxiety disorder F41.1 and Depressive disorder, not elsewhere classified F32.9 [facility] [place] [id number] [place] [address] Jun, [facility] [place] [id number] [place] [address] Jun, Generalized anxiety disorder F41.1 [facility] [place] [id number] [place] [address] May, Encounter for immunization Z23 and Right shoulder pain M25.511 [address] [id number] [place] [address] Apr, [facility] [place] [id number] [place] [address] Apr, Generalized anxiety disorder 300.02 and Depressive disorder, not elsewhere classified 311 [facility] [id number] [place] [address] [phone] Mar, Dental examination V72.2 [facility] [place] [id number] [place] [address] Mar, Generalized anxiety disorder 300.02 and Depressive disorder, not elsewhere classified 311 [facility] [place] [id number] [place] [address] Mar, Depression, major, recurrent, 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.35 and 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 [address] [place], [place] [address] Feb, Generalized anxiety disorder 300.02 and Depressive disorder, not elsewhere classified 311 [facility] [address] [id number] Feb, Dental examination V72.2 [facility] [place] [address] [place] [address] Jan, Generalized anxiety disorder 300.02 and Depressive disorder, not elsewhere classified 311 [facility] [place] [address], [place] [address] Jan, [facility] [place] [id number] [place] [address] December, Generalized anxiety disorder 300.02 and Depressive disorder, not elsewhere classified 311 [facility] [place] [address] [place] [address] December, Major depressive disorder, recurrent, unspecified 296.30 and Panic disorder with agoraphobia 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 [facility] [place] [address], [place] [address] Nov, [facility] [place] [id number] [place] [address] Nov, [facility] [place] [address], [place] [address] Oct, [facility] [place] [address] [place] [address] Oct, [facility] [place] [address], [place] [address] Oct, [facility] [place] [id number] [place] [address] Oct, [facility] [place] [address], [place] [address] Sep, [facility] [place] [id number] [place] [address] Sep, 2014 [facility] [place] [facility] [address] [id number] [place] [address] Sep, 2014 [facility] [place] [facility] [address] [id number] [place] [address] Sep, 2014 [facility] [place] [facility] [address] [facility] [id number] [place] [address] Sep, 2014 [facility] [place] [facility] [address] [id number] [place] [address] Sep, 2014 [facility] [place] [facility] [address] [id number] [place] [address] Sep, 2014 [facility] [place] [facility] [address] [facility] [id number] [place] [address] Sep, 2014 [facility] [place] [facility] [address] [facility] [id number] [place] [address] Sep, 2014 [facility] [place] [facility] [address] [facility] [id number] [place] [address] Sep, [facility] [place] [facility] [address] [facility] [id number] [place] [address] Aug, [facility] [place] [facility] [address] [facility] [id number] [place] [address] Aug, [facility] [place] [facility] [address] [facility] [id number] [place] [address] Jul, [facility] [place] [facility] [address] [facility] [id number] [place] [address] Jul, [facility] [place] [facility] [address] [facility] [id number] [place] [address] Jul, [facility] [place] [facility] [address] [facility] [id number] [place] [address] Jul, [facility] [place] [facility] [address] [facility] [id number] [place] [address] Jul, [facility] [place] [facility] [address] [id number] [place] [address] Jul, [facility] [place] [facility] [address] [id number] [place] [address] Jul, [facility] [place] [facility] [address] [id number] [place] [address] Jul, [facility] [place] [facility] [address] [id number] [place] [address] Jul, [facility] [place] [facility] [address] [id number] [place] [address] Jul, [facility] [place] [facility] [address] [id number] [place] [address] Jul, [facility] [place] [facility] [address] [id number] [place] [address] Jul, [facility] [place] [facility] [address] [id number] [place] [address] Jun, [facility] [place] [facility] [address] [id number] [place] [address] Jun, [facility] [place] [facility] [address] [id number] [place] [address] May, [facility] [place] [facility] [address] [id number] [place] [address] May, [facility] [place] [facility] [address] [id number], [place] [address] May, [facility] [place] [facility] [address] [id number] [place] [address] May, [facility] [place] [facility] [address] [id number] [place] [address] May, [facility] [place] [facility] [address] [id number], [place] [address] May, [facility] [place] [facility] [address] [id number], [place] [address] May, [facility] [place] [facility] [address] [id number] [place] [address] May, [facility] [place] [facility] [address] [id number] [place] [address] May, [facility] [place] [facility] [address] [id number] [place] [address] May, [facility] [place] [facility] [address] [id number] [place] [address] May, [facility] [place] [facility] [address] [id number] [place] [address] May, [facility] [place] [facility] [address] [id number] [place] [address] Apr, [facility] [place] [facility] [address] [id number] [place] [address] Apr, [facility] [place] [facility] [address] [id number] [place] [address] Apr, [facility] [place] [facility] [address] [id number] [place] [address] Apr, [facility] [place] [facility] [address] [facility] [id number] [place] [address] Apr, [facility] [place] [facility] [address] [id number] [place] [address] Apr, [facility] [place] [facility] [address] [id number] [place] [address] Feb, [facility] [place] [facility] [address] [id number] [place] [address] Feb, [facility] [place] [facility] [address] [id number] [place] [address] Feb, [facility] [place] [facility] [address] [facility] [id number] [place] [address] Feb, [facility] [facility] [address] [id number] [place] [address] Feb, [facility] [place] [facility] [address] [id number] [place] [address] Feb, [facility] [place] [facility] [address] [id number] [place] [address] Jan, [facility] [place] [facility] [address] [id number] [place] [address] Jan, [facility] [place] [facility] [address] [id number] [place] [address] Jan, [facility] [place] [facility] [address] [id number] [place] [address] Jan, [facility] [place] [facility] [address] [id number] [place] [address] Jan, [facility] [place] [facility] [address] [id number] [place] [address] Jan, [facility] [place] [facility] [address] [id number] [place] [address] Jan, [facility] [place] [facility] [address] [id number] [place] [address] Jan, [facility] [place] [facility] [address] [id number] [place] [address] December, [facility] [place] [facility] [address] [id number] [place] [address] December, [facility] [place] [facility] [address] [id number] [place] [address] December, [facility] [place] [facility] [address] [id number] [place] [address] December, [facility] [place] [facility] [address] [id number] [place] [address] Nov, [facility] [place] [facility] [address] [id number] [place] [address] Nov, [facility] [place] [facility] [address] [id number] [place] [address] Nov, [facility] [place] [facility] [address] [id number] [place] [address] Nov, [facility] [place] [facility] [address] [id number] [place] [address] Nov, [facility] [place] [facility] [address] [id number] [place] [address] Nov, [facility] [place] [facility] [address] [id number] [place] [address] Nov, [facility] [place] [facility] [address] [id number] [place] [address] Nov, [facility] [place] [facility] [address] [id number] [place] [address] Oct, [facility] [place] [facility] [address] [id number] [place] [address] Oct, [facility] [place] [facility] [address] [id number] [place] [address] Sep, [facility] [place] [facility] [address] [id number] [place] [address] Sep, [facility] [address] [facility] [address] [id number] [id number] Sep, [facility] [facility] [address] [id number] [place] [address] Sep, [facility] [address] [id number] [place] [address] Sep, [facility] [place] [address] [id number] [place] [address] Sep, [facility] [place] [facility] [address] [id number] [place] [address] Aug, [facility] [place] [facility] [address] [id number] [place] [address] Aug, [facility] [address] [id number] [place] [address] Aug, [facility] [address] [id number] [place] [address] Aug, [facility] [address] [id number] [place] [address] Jul, [facility] [address] [id number] [place] [address] Jul, [facility] [address] [id number] [place] [address] Jul, [facility] [address] [id number] [place] [address] Jul, [facility] [address] [id number] [place] [address] Jun, [facility] [address] [id number] [place] [address] Jun, [facility] [address] [id number] [place] [address] 24 May, 2013 [facility] [address] [id number] [place] [address] 24 May, 2013 [facility] [address] [id number] [place] [address] May, [facility] [address] [id number] [place] [address] 11 May, 2013 [facility] [address] [id number] [place] [address] 10 May, 2013 [facility] [address] [id number] [place] [address] 17 Apr, 2013 [facility] [address] [id number] [place] [address] Apr, [facility] [address] [id number] [place] [address] Mar, [facility] [address] [id number] [place] [address] Mar, [facility] [address] [id number] [place] [address] Mar, [facility] [address] [id number] [place] [address] Mar, [facility] [address] [id number] [place] [address] Feb, [facility] [address] [id number] [place] [address] Feb, [facility] [address] [id number] [place] [address] Feb, [facility] [address] [id number] [place] [address] Feb, [facility] [address] [id number] [place] [address] Feb, [facility] [address] [id number] [place] [address] Jan, [facility] [address] [id number] [place] [address] Jan, [facility] [address] [id number] [place] [address] Jan, [facility] [address] [id number] [place] [address] Jan, [facility] [address] [id number] [place] [address] Jan, [facility] [address] [id number] [place] [address] December, [facility] [address] [id number], [place] [address] December, [facility] [address] [id number] [place] [address] Nov, [facility] [address] [id number] [place] [address] Nov, [facility] [address] [id number] [place] [address] Oct, [facility] [address] [id number] [place] [address] Oct, [facility] [address] [id number] [place] [address] 05 Oct, 2012 [facility] [address] [id number] [place] [address] 14 Sep, 2012 [facility] [address] [facility] [id number] [place] [address] 24 Aug, 2012 [facility] [address] [id number] [place] [address] Aug, [facility] [address] [facility] [id number] [place] [address] Aug, [facility] [address] [facility] [id number] [place] [address] Aug, [facility] [address] [id number] [place] [address] Jul, [facility] [address] [id number] [place] [address] Jul, [facility] [address] [id number] [place] [address] Jul, [facility] [address] [id number] [place] [address] Jul, [facility] [address] [facility] [id number] [place] [address] Jul, [facility] [address] [id number] [place] [address] Jul, [facility] [address] [id number] [place] [address] Jul, [facility] [address] [id number] [place] [address] Jul, [facility] [address] [id number] [place] [address] Jun, [facility] [address] [id number] [place] [address] Jun, [facility] [address] [id number] [place] [address] Jun, [facility] [address] [id number] [place] [address] Jun, [facility] [address] [id number] [place] [address] Jun, [facility] [address] [id number] [place] [address] Jun, [facility] [address] [id number] [place] [address] May, [facility] [address] [id number] [place] [address] May, [facility] [address] [id number] [place] [address] May, [facility] [address] [id number] [place] [address] May, [facility] [address] [id number] [place] [address] Apr, [facility] [address] [id number] [place] [address] Apr, [facility] [address] [id number] [place] [address] 08 Mar, 2012 [facility] [address] [id number] [place] [address] 28 Jan, 2012 [facility] [address] [id number] [place] [address] 20 Jan, 2012 [facility] [address] [id number] [place] [address] 16 Jan, 2012 [facility] [address] [id number] [place] [address] 15 Jan, 2012 [facility] [address] [id number] [place] [address] 14 Jan, 2012 [facility] [address] [id number] [place] [address] 14 Jan, 2012 [facility] [address] [id number] [place] [address] 07 Jan, 2012 [facility] [address] [id number] [place] [address] December, [facility] [address] [id number] [place] [address] December, [facility] [address] [id number] [place] [address] December, [facility] [address] [id number] [place] [address] December, [facility] [address] [id number] [place] [address] Nov, [facility] [address] [id number] [place] [address] Nov, [facility] [place] [address] [id number] [place] [address] 29 Oct, 2011 [facility] [address] [id number] [place] [address] Oct, [facility] [address] [id number] [place] [address] Oct, [facility] [address] [id number] [place] [address] Sep, [facility] [address] [id number] [place] [address] Sep, [facility] [address] [id number] [place] [address] Sep, [facility] [address] [id number] [place] [address] Aug, [facility] [address] [id number] [place] [address] Aug, [facility] [address] [id number] [place] [address] Aug, [facility] [address] [id number] [place] [address] Aug, [facility] [address] [id number] [place] [address] Aug, [facility] [address] [id number] [place] [address] Aug, [facility] [address] [id number] [place] [address] Aug, [facility] [address] [id number] [place] [address] Jul, [facility] [address] [id number] [place] [address] Jul, [facility] [address] [id number] [place] [address] Jun, [facility] [address] [id number] [place] [address] Jun, [facility] [address] [id number] [place] [address] 17 Jun, 2011 [facility] [facility] [address] [id number] [place] [address] 15 Jun, 2011 [facility] [facility] [address] [id number] [place] [address] Jun, [facility] [facility] [address] [id number] [place] [address] Jun, [facility] [place] [facility] [address] [id number] [place] [address] Jun, [facility] [place] [facility] [address] [id number] [place] [address] Jun, [facility] [place] [facility] [address] [id number] [place] [address] Jun, [facility] [place] [facility] [address] [id number] [place] [address] Jun, [facility] [place] [facility] [address] [id number], [place] [address] May, [facility] [place] [facility] [address] [id number] [place] [address] May, [facility] [place] [facility] [address] [id number], [place] [address] May, [facility] [facility] [address] [id number], [place] [address] May, [facility] [place] [facility] [address] [id number], [place] [address] May, [facility] [place] [facility] [address] [id number], [place] [address] May, [facility] [facility] [address] [id number], [place] [address] Feb, [facility] [facility] [address] [id number], [place] [address] December, [facility] [facility] [address] [id number], [place] [address] Jul, [facility] [place] [id number], [place] [address] Jul, [facility] [place] [id number], [place] [address] Jul, [facility] [place] [id number], [place] [address] Jul, [facility] [place] [id number] [place] [address] 15 Jun, 2010 [facility] [place] [id number] [place] [address] Jul, [facility] [place] [id number] [place] [address] Jul, [facility] [place] [id number] [place] [address] Jul, [facility] [place] [id number], [place] [address] Jul, [facility] [place] [id number] [place] [address] Jul, [facility] [place] [id number], [place] [address] Jul, [facility] [place] [id number], [place] [address] Jan, [facility] [place] [address], [place] [address] 16 Sep, 2008 [facility] [place] [id number], [place] [address] Sep, IMMUNIZATIONS No Known Immunizations SOCIAL HISTORY Never Assessed REASON FOR VISIT [place] [facility]/FADUMO per Vlad PLAN OF CARE Activity Details Follow Up [facility] #27, 28, 30-Dr. Chu 45mins Reason: VITAL SIGNS Height 66 in 2017-07-16 Heart Rate 70 bpm 2017-07-16 Blood pressure systolic 114 mmHg 2017-07-16 Blood pressure diastolic 77 mmHg 2017-07-16 MEDICATIONS Medication Instructions Dosage Frequency Start Date End Date Duration Status Omeprazole 20 mg Orally Once a day, ac 1 capsule Mar, 30 day(s) Active Ibuprofen 600 MG Orally Three times a day 1 tablet with food or milk as needed 8h May, Not-Taking InnoPran XL 120 MG Orally Once a day 1 capsule at bedtime 24h 30 Active Motrin Active Cephalexin 500 MG Orally every 6 hrs 1 capsule 6h Not-Taking Fluconazole 150 MG Orally now and may repeat in 3 days 1 tablet May, Not-Taking Bactroban Not-Taking Hydrochlorothiazide 25 MG Orally Once a day as needed TAKE ONE 90 days Active Clorazepate Dipotassium 7.5 MG Orally 4 times a day 1 tablet as needed 6h 30 days Active Percocet 5-325 MG Orally every 6 hrs 1 tablet as needed 6h Not-Taking InnoPran XL 80 MG Orally Once a day. Take along with 120mg 1 capsule at bedtime May, 30 Active Brooks 7.5-325 MG Orally every 4-6 hours as needed 1 tablet Not-Taking Hyoscyamine Sulfate 0.125 mg 1 tablet by Oral route 4 times per day PRN Jul, Not-Taking RESULTS No Results PROCEDURES Procedure Date Ordered Result Body Site COMP ORAL EVALUATION - NEW/EST PT Jul 16, 2017 BITEWINGS - FOUR FILMS Jul 16, 2017 Billing Notes on claim Jul 16, 2017 CROWN - PORCELAIN/CERAMIC SUBSTRATE Jul 16, 2017 INSTRUCTIONS MEDICATIONS ADMINISTERED No Known Medications [...]
[2019-01-22] MEDS ORDERED: HOLD METFORMIN - RECEIVED CONTRAST 20 ML VIAL IV SCH (21:45)
[2019-01-22] MEDS ORDERED: IOHEXOL 350 MG/ML 100 ML (OMNIPAQUE 350) VIAL IV ONE (21:45)
[2019-01-22] MEDS ORDERED: NS 100 ML (IVPB) BAG IV ONE (21:45)
--- NOTE | 2019-01-22 21:54 | Diagnostic Imaging Report ---
PROCEDURE: CT abdomen and pelvis with contrast. TECHNIQUE: Multiple contiguous axial images were obtained through the abdomen and pelvis after administration of intravenous contrast. Auto Exposure Controls were utilized during the CT exam to meet ALARA standards for radiation dose reduction. INDICATION: Increasing left lower quadrant pain. Comparison with 08/21/2017. FINDINGS: There is diffuse diverticulosis of the sigmoid colon. Mild thickening of the colon wall is seen though there are no findings that would indicate acute diverticulitis by CT scan at this time. There is normal bowel gas pattern throughout the colon. The appendix is visualized and normal. The uterus is not enlarged. There are no pelvic masses. There is no free fluid. No free air. The small bowel and stomach are not distended and appear normal. Lung bases are clear. The liver is normal. Gallbladder is absent. Pancreas is normal. Bile ducts not dilated. Spleen is normal. Adrenal glands are normal. Kidneys appear normal. There is normal enhancement of the abdominal organs and vessels following IV contrast. There is no evidence of intra-abdominal adenopathy. There are no bony lesions. IMPRESSION: 1. There is diverticulosis of the sigmoid colon though there are no changes at this time to indicate acute diverticulitis by CT. The appendix is visualized and normal. 2. No pelvic masses are demonstrated. No free air or free fluid. Dictated by: Dictated on workstation # [id number]
[2019-01-22] MEDS ORDERED: RX-HYOSCYAMINE 0.125 MG SL (LEVSIN) PPK#6 SL STA (21:56)
[2019-01-22] MEDS ORDERED: KETOROLAC 30 MG/ML VIAL IVP ONE (22:00)
[2019-01-22] MEDS ORDERED: PROMETHAZINE INJ 25 MG/ML (PHENERGAN) AMP IVP ONE (22:30)
[2019-01-22 23:03] VITALS: BP 122/76
== END 2019-01-22 23:04 | disposition home or self-care (01) ==
LOC: EDUNIT# 20:24 → ER 20:25
DX: K57.30 Diverticulosis of large intestine without perforation or abscess without bleeding (principal); K58.9 Irritable bowel syndrome, unspecified; G40.909 Epilepsy, unspecified, not intractable, without status epilepticus; F41.9 Anxiety disorder, unspecified; K21.9 Gastro-esophageal reflux disease without esophagitis; Z86.010 Personal history of colon polyps; Z87.19 Personal history of other diseases of the digestive system; Z87.440 Personal history of urinary (tract) infections; Z87.448 Personal history of other diseases of urinary system; Z88.5 Allergy status to narcotic agent; Z88.2 Allergy status to sulfonamides; Z91.041 Radiographic dye allergy status; Z98.890 Other specified postprocedural states; Z87.891 Personal history of nicotine dependence
CPT/HCPCS: 36415; 74177; 80053; 81000; 83690; 85025; 96361; 96374; 96375

== ENCOUNTER 2019-02-02 05:51 | Outpatient (CLI) | payer MEDICAID ==
[~2019-02-02] VITALS: Ht 170.2 cm; Wt 79.1 kg
[~2019-02-02 05:51] MED LIST changes: -OMEP20CA12; +OMEP20CA12 PO
[2019-02-02] MEDS ORDERED: PROP120C3 PO (14:16)
[2019-02-02] MEDS ORDERED: CLOR7.5T3 PO (14:16)
[2019-02-02] MEDS ORDERED: ONDA4TAB11 PO (14:16)
[2019-02-02] MEDS ORDERED: HYDR25TA4 PO (14:16)
[2019-02-02] MEDS ORDERED: HYOS-19 SL (14:16)
[2019-02-02] MEDS ORDERED: PROP80TA3 PO (14:16)
== END 2019-02-02 14:33 | disposition home or self-care (01) ==
LOC: PREOP 05:51
PROVIDERS: ATTEND Surgery
DX: Z01.818 Encounter for other preprocedural examination (principal)

== ENCOUNTER 2019-02-05 06:52 | Day surgery (SDC) | payer MEDICAID ==
[~2019-02-05] VITALS: Ht 170.2 cm; Wt 79.1 kg
[~2019-02-05 06:52] MED LIST changes: +CLOR7.5T3 PO; +HYDR25TA4 PO; +HYOS-19 SL; +PROP120C3 PO; +PROP80TA3 PO
[2019-02-05] MEDS ORDERED: LACTATED RINGERS 1,000 ML IV STA (07:05)
[2019-02-05] MEDS ORDERED: LACTATED RINGERS 1,000 ML IV ONE (07:08)
[2019-02-05] MEDS ORDERED: PROPOFOL INJECTION 50 ML IV ONE ×2 (07:13→07:36)
[2019-02-05] MEDS ORDERED: MIDAZOLAM 2 MG/2 ML (VERSED) VIAL ONE (07:13)
[2019-02-05] MEDS ORDERED: HURRICAINE EXT TUBE (BENZOCAINE) XX PRN (07:15)
--- NOTE | 2019-02-05 07:15 | Progress Note-Pre Operative ---
Pre-Operative Progress Note H&P Reviewed The H&P was reviewed, patient examined and no changes noted. Date Seen by Provider: Feb 05, 2019 Time Seen by Provider: 07:14 Date H&P Reviewed: Feb 05, 2019 Time H&P Reviewed: 07:14 Pre-Operative Diagnosis: luq, llq abdominal pain. AN LAYTON DO Feb 05, 2019 07:15
[2019-02-05 07:24] VITALS: BP 125/85
[2019-02-05] MEDS ORDERED: HURRICAINE EXT TUBE (BENZOCAINE) ONE (07:29)
[2019-02-05] MEDS ORDERED: DEXAMETHASONE 4 MG/ML SDV (DECADRON) ONE (07:32)
[2019-02-05] MEDS ORDERED: ONDANSETRON 4 MG/2 ML (SDV) Z0FRAN ONE (07:32)
--- OUTSIDE RECORDS SUMMARY | 2019-02-05 07:52 | XMS REPORT | Continuity of Care Document ---
Author Organization Unknown Address Unknown Allergies Active Description Code Type Severity Reaction Onset Reported/Identified Relationship to Patient Clinical Status Yes codeine [id number] Drug Allergy Unknown N/A 11/22/2007 Yes Sulfa (Sulfonamide Antibiotics) [id number] Drug Allergy Unknown N/A 11/22/2007 Yes codeine Drug Allergy N/A N/A 10/10/2008 Yes erythromycin Drug Allergy N/A N/A 10/10/2008 Yes codeine Drug Allergy 10/10/2008 Yes erythromycin Drug Allergy 10/10/2008 Yes sulfa drug Drug Allergy 10/10/2008 Yes Hydrocodone Drug Allergy N/A N/A 10/08/2012 Yes Hydrocodone Drug Allergy 10/08/2012 Yes erythromycin base [id number] Drug Allergy Unknown N/A 12/13/2016 Yes Sulfa (Sulfonamide Antibiotics) [id number] Drug Allergy Unknown ANAPHYLAXIS 01/22/2019 Yes erythromycin base [id number] Drug Allergy Severe SEVERE ABD PAIN 02/02/2019 Yes Sulfa (Sulfonamide Antibiotics) [id number] Drug Allergy Severe ANAPHYLAXIS 02/02/2019 Yes hydrocodone [id number] Drug Allergy Mild VOMITING 02/02/2019 Medications There is no data. Problems Date Dx Coded Attending Type Code Diagnosis Diagnosed By 04/22/2008 WILLARD GOEL DDS 401.1 ESSENTIAL HYPERTENSION BENIGN 04/22/2008 WILLARD GOEL DDS N 782.3 Edema 04/22/2008 WILLARD GOEL DDS N 783.1 Weight Gain Ab[facility] ESSENTIAL HYPERTENSION BENIGN 04/22/2008 [facility] 782.3 Edema 04/22/2008 [facility] 783.1 Weight Gain Abnormal 04/22/2008 401.1 ESSENTIAL HYPERTENSION BENIGN 04/22/2008 782.3 Edema 04/22/2008 783.1 Weight Gain Abnormal 04/22/2008 401.1 ESSENTIAL HYPERTENSION BENIGN 04/22/2008 782.3 Edema 04/22/2008 783.1 Weight Gain Abnormal 04/22/2008 [facility], KVNG R 401.1 ESSENTIAL HYPERTENSION BENIGN 04/22/2008 [facility], KVNG R 782.3 Edema 04/22/2008 [facility], KVNG R 783.1 Weight Gain [...] Edema 04/22/2008 783.1 Weight Gain Abnormal 04/22/2008 [facility], KVNG R 401.1 ESSENTIAL HYPERTENSION BENIGN 04/22/2008 [facility], KVNG R 782.3 Edema 04/22/2008 [facility], KVNG R 783.1 Weight Gain Abnormal 04/22/2008 [facility], KVNG R 401.1 ESSENTIAL HYPERTENSION BENIGN 04/22/2008 [facility], KVNG R 782.3 Edema 04/22/2008 [facility], KVNG R 783.1 Weight Gain Abnormal 04/22/2008 [facility], KVNG R 401.1 ESSENTIAL HYPERTENSION BENIGN 04/22/2008 [facility], KVNG R 782.3 Edema 04/22/2008 [facility], KVNG R 783.1 Weight Gain Abnormal 04/22/2008 NATHALIE TORO MD 401.1 ESSENTIAL HYPERTENSION BENIGN 04/22/2008 NATHALIE TORO MD 782.3 Edema 04/22/2008 NATHALIE TORO MD 783.1 Weight Gain Abnormal 04/22/2008 [facility], KVNG R 401.1 ESSENTIAL HYPERTENSION BENIGN 04/22/2008 [facility], KVNG R 782.3 Edema 04/22/2008 [facility], KV[facility] R 783.1 Weight Gain Abnormal 04/22/2008 EDUARDO COBB JR S 401.1 ESSENTIAL HYPERTENSION BENIGN 04/22/2008 EDUARDO COBB JR S 782.3 Edema 04/22/2008 EDUARDO COBB JR S 783.1 Weight Gain Abnormal 04/22/2008 [facility], KVNG R 401.1 ESSENTIAL HYPERTENSION BENIGN 04/22/2008 [facility], KVNG R 782.3 Edema 04/22/2008 [facility], KVNG R 783.1 Weight Gain Abnormal 04/22/2008 [facility], KVNG R 401.1 ESSENTIAL HYPERTENSION BENIGN 04/22/2008 [facility], KVNG R 782.3 Edema 04/22/2008 [facility], KV[facility] R 783.1 Weight Gain Abnormal 04/22/2008 ANTONIA WILKINS APRNNDA S 401.1 ESSENTIAL HYPERTENSION BENIGN 04/22/2008 FRANKY DAY, LETTY S 782.3 Edema 04/22/2008 FRANKY DAY, LETTY S 783.1 Weight Gain Abnormal 04/22/2008 NATHALIE TORO MD 401.1 ESSENTIAL HYPERTENSION BENIGN 04/22/2008 NATHALIE TORO MD 782.3 Edema 04/22/2008 NATHALIE TORO MD 783.1 Weight Gain Abnormal 04/22/2008 [facility], KVNG R 401.1 ESSENTIAL HYPERTENSION BENIGN 04/22/2008 [facility], KVNG R 782.3 Edema 04/22/2008 [facility], KVNG R 783.1 Weight Gain Abnormal 04/22/2008 NATHALIE TORO MD 401.1 ESSENTIAL HYPERTENSION BENIGN 04/22/2008 NATHALIE TORO MD 782.3 Edema 04/22/2008 NATHALIE TORO MD 783.1 Weight Gain Abnormal 04/22/2008 [facility], KVNG R 401.1 ESSENTIAL HYPERTENSION BENIGN 04/22/2008 [facility], KVNG R 782.3 Edema 04/22/2008 [facility], KVNG R 783.1 Weight Gain Abnormal 04/22/2008 [facility], KVNG R 401.1 ESSENTIAL HYPERTENSION BENIGN 04/22/2008 [facility], KVNG R 782.3 Edema 04/22/2008 [facility], KVNG R 783.1 Weight Gain Abnormal 04/22/2008 [facility], KVNG R 401.1 ESSENTIAL HYPERTENSION BENIGN 04/22/2008 [facility], KVNG R 782.3 Edema 04/22/2008 [facility], KVNG R 783.1 Weight Gain Abnormal 04/22/2008 WANG ORGAN PIPE VOICER, ROBERT 401.1 ESSENTIAL HYPERTENSION BENIGN 04/22/2008 WANG [employer]GAN PIPE VOICER, ROBERT 782.3 Edema 04/22/2008 WANG ORGAN PIPE VOICER, ROBERT 783.1 Weight Gain Abnormal 04/22/2008 WANG [employer]GAN PIPE VOICER, ROBERT 401.1 ESSENTIAL HYPERTENSION BENIGN 04/22/2008 WANG ORGAN PIPE VOICER, ROBERT 782.3 Edema 04/22/2008 WANG [employer] PIPE VOICER, ROBERT 783.1 Weight Gain Abnormal 04/22/2008 FRANKY ORGAN PIPE VOICER, LETTY S 401.1 ESSENTIAL HYPERTENSION BENIGN 04/22/2008 FRANKY ORGAN PIPE VOICER, LETTY S 782.3 Edema 04/22/2008 FRANKY ORGAN PIPE VOICER, LETTY S 783.1 Weight Gain Abnormal 04/22/2008 [facility], KVNG R 401.1 ESSENTIAL HYPERTENSION BENIGN 04/22/2008 [facility], KVNG R 782.3 Edema 04/22/2008 [facility], KVNG R 783.1 Weight Gain Abnormal 04/22/2008 [facility], KVNG R 401.1 ESSENTIAL HYPERTENSION BENIGN 04/22/2008 [facility], KVNG R 782.3 Edema 04/22/2008 [facility], KVNG R 783.1 Weight Gain Abnormal 04/22/2008 WANG ORGAN PIPE VOICER, ROBERT 401.1 ESSENTIAL HYPERTENSION BENIGN 04/22/2008 WANG ORGAN PIPE VOICER, ROBERT 782.3 Edema 04/22/2008 WANG SHIRA DAYETTE 783.1 Weight Gain Abnormal 04/22/2008 [facility], KVNG R 401.1 ESSENTIAL HYPERTENSION BENIGN [facility] 782.3 [facility]22[facility] 783.1 Weight Gain Abnormal 04/22/2008 FRANKY ORGAN PIPE VOICER, LETTY S 401.1 ESSENTIAL HYPERTENSION BENIGN 04/22/2008 FRANKY ORGAN PIPE VOICER, LETTY S 782.3 Edema 04/22/2008 FRANKY ORGAN PIPE VOICER, LETTY S 783.1 Weight Gain Abnormal 04/22/2008 [facility], KVNG R 401.1 ESSENTIAL HYPERTENSION BENIGN 04/22/2008 [facility] 782.3 Edema 04/22/2008 [facility] 783.1 Weight Gain Abnormal 04/22/2008 [facility], KVNG R 401.1 ESSENTIAL HYPERTENSION BENIGN 04/22/2008 [facility] 782.3 Edema 04/22/2008 [facility] 783.1 Weight Gain Abnormal 04/22/2008 [facility] 401.1 ESSENTIAL HYPERTENSION BENIGN 04/22/2008 [facility] 782.3 Edema 04/22/2008 [facility] 783.1 Weight Gain Abnormal 04/22/2008 MUOGHALU DDS, WILLARD N 401.1 ESSENTIAL HYPERTENSION BENIGN 04/22/2008 MUOGHALU DDS, WILLARD N 782.3 Edema 04/22/2008 MUOGHALU DDS, WILLARD N 783.1 Weight Gain Abnormal 05/16/2008 MUOGHALU DDS, WILLARD N 300.00 AN ANXIETY UNSPEC 05/16/2008 MUOGHALU DDS, WILLARD N 311 MO DEPRESSIVE DISORDER NOS 05/16/2008 [facility], KVNG R 300.00 AN ANXIETY UNSPEC 05/16/2008 [facility], KVNG R 311 MO DEPRESSIVE DISORDER NOS 05/16/2008 300.00 AN ANXIETY UNSPEC 05/16/2008 311 MO DEPRESSIVE DISORDER NOS 05/16/2008 300.00 AN ANXIETY UNSPEC 05/16/2008 311 MO DEPRESSIVE DISORDER NOS 05/16/2008 [facility], KVNG R 300.00 AN ANXIETY UNSPEC 05/16/2008 [facility], KVNG R 311 MO DEPRESSIVE [...] 05/16/2008 311 MO DEPRESSIVE DISORDER NOS 05/16/2008 [facility], KVNG R 300.00 AN ANXIETY UNSPEC 05/16/2008 [facility], KVNG R 311 MO DEPRESSIVE DISORDER NOS 05/16/2008 [facility], KVNG R 300.00 AN ANXIETY UNSPEC 05/16/2008 [facility], KVNG R 311 MO DEPRESSIVE DISORDER NOS 05/16/2008 [facility], KVNG R 300.00 AN ANXIETY UNSPEC 05/16/2008 [facility], KVNG R 311 MO DEPRESSIVE DISORDER NOS 05/16/2008 NATHALIE TORO MD 300.00 AN ANXIETY UNSPEC 05/16/2008 NATHALIE TORO MD 311 MO DEPRESSIVE DISORDER NOS 05/16/2008 [facility], KVNG R 300.00 AN ANXIETY UNSPEC 05/16/2008 [facility], KVNG R 311 MO DEPRESSIVE DISORDER NOS 05/16/2008 EDUARDO COBB JR 300.00 AN ANXIETY UNSPEC 05/16/2008 EDUARDO COBB JR 311 MO DEPRESSIVE DISORDER NOS 05/16/2008 [facility], KVNG R 300.00 AN ANXIETY UNSPEC 05/16/2008 [facility], KVNG R 311 MO DEPRESSIVE DISORDER NOS 05/16/2008 [facility], KVNG R 300.00 AN ANXIETY UNSPEC 05/16/2008 [facility], KVNG R 311 MO DEPRESSIVE DISORDER NOS 05/16/2008 LETTY WILKINS APRN 300.00 AN ANXIETY UNSPEC 05/16/2008 LETTY WILKINS APRN 311 MO DEPRESSIVE DISORDER NOS 05/16/2008 NATHALIE TORO MD 300.00 AN ANXIETY UNSPEC 05/16/2008 NATHALIE TORO MD 311 MO DEPRESSIVE DISORDER NOS 05/16/2008 [facility], KVNG R 300.00 AN ANXIETY UNSPEC 05/16/2008 [facility], KVNG R 311 MO DEPRESSIVE DISORDER NOS 05/16/2008 NATHALIE TORO MD 300.00 AN ANXIETY UNSPEC 05/16/2008 NATHALIE TORO MD 311 MO DEPRESSIVE DISORDER NOS 05/16/2008 [facility], KVNG R 300.00 AN ANXIETY UNSPEC 05/16/2008 [facility], KVNG R 311 MO DEPRESSIVE DISORDER NOS 05/16/2008 [facility], KVNG R 300.00 AN ANXIETY UNSPEC 05/16/2008 [facility], KVNG R 311 MO DEPRESSIVE DISORDER NOS 05/16/2008 [facility], KVNG R 300.00 AN ANXIETY UNSPEC 05/16/2008 [facility], KVNG R 311 MO DEPRESSIVE DISORDER NOS 05/16/2008 SHIRA PIÑA APRNETTE 300.00 AN ANXIETY UNSPEC 05/16/2008 WANG DAY ROBERT 311 MO DEPRESSIVE DISORDER NOS 05/16/2008 WANG DAY ROBERT 300.00 AN ANXIETY UNSPEC 05/16/2008 WANG DAY ROBERT 311 MO DEPRESSIVE DISORDER NOS 05/16/2008 LETTY WILKINS APRN S 300.00 AN ANXIETY UNSPEC 05/16/2008 LETTY WILKINS APRN S 311 MO DEPRESSIVE DISORDER NOS 05/16/2008 [facility], KVNG R 300.00 AN ANXIETY UNSPEC 05/16/2008 [facility], KVNG R 311 MO DEPRESSIVE DISORDER NOS 05/16/2008 [facility], KVNG R 300.00 AN ANXIETY UNSPEC 05/16/2008 [facility], KVNG R 311 MO DEPRESSIVE DISORDER NOS 05/16/2008 WANG DAY ROBERT 300.00 AN ANXIETY UNSPEC 05/16/2008 WANG ORGAN PIPE VOICER, ROBERT 311 MO DEPRESSIVE DISORDER NOS 05/16/2008 [facility], KVNG R 300.00 AN ANXIETY UNSPEC 05/16/2008 [facility], KVNG R 311 MO DEPRESSIVE DISORDER NOS 05/16/2008 LETTY WILKINS APRN S 300.00 AN ANXIETY UNSPEC 05/16/2008 FRANKY DAYLETTY S 311 MO DEPRESSIVE DISORDER NOS 05/16/2008 [facility], KVNG R 300.00 AN ANXIETY UNSPEC 05/16/2008 [facility], KVNG R 311 MO DEPRESSIVE DISORDER NOS 05/16/2008 [facility], KVNG R 300.00 AN ANXIETY UNSPEC 05/16/2008 [facility], KVNG R 311 MO DEPRESSIVE DISORDER NOS 05/16/2008 [facility], KVNG R 300.00 AN ANXIETY UNSPEC 05/16/2008 [facility], KVNG R 311 MO DEPRESSIVE DISORDER NOS 05/16/2008 MUOGHALU DDS, WILLARD N 300.00 AN ANXIETY UNSPEC 05/16/2008 MUOGHALU DDS, WILLARD N 311 MO DEPRESSIVE DISORDER NOS 05/26/2008 MUOGHALU DDS, WILLARD N 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 05/26/2008 [facility], KVNG R 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 05/26/2008 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 05/26/2008 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 05/26/2008 [facility], KVNG R 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 05/26/2008 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 05/26/2008 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 05/26/2008 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 05/26/2008 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 05/26/2008 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 05/26/2008 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 05/26/2008 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 05/26/2008 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 05/26/2008 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 05/26/2008 [facility], KVNG R 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 05/26/2008 [facility], KVNG R 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 05/26/2008 [facility] 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 05/26/2008 NATHALIE TORO MD 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 05/26/2008 [facility], KVNG R 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 05/26/2008 EDUARDO COBB JR 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 05/26/2008 [facility], KVNG R 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 05/26/2008 [facility], KVNG R 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 05/26/2008 FRANKY MAXN, LETTY S 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 05/26/2008 NATHALIE TORO MD 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 05/26/2008 [facility], KVNG R 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 05/26/2008 NATHALIE TORO MD 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 05/26/2008 [facility], KVNG R 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 05/26/2008 [facility], KVNG R 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 05/26/2008 [facility], KVNG R 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 05/26/2008 WANG ORGAN PIPE VOICER, ROBRET 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 05/26/2008 WANG ORGAN PIPE VOICER, ROBERT 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 05/26/2008 FRANKY ORGAN PIPE VOICER, LETTY S 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 05/26/2008 [facility], KVNG R 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 05/26/2008 [facility], KVNG R 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 05/26/2008 WANG ORGAN PIPE VOICER, ROBERT 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 05/26/2008 [facility], KVNG R 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 05/26/2008 ANTONIA WILKINS APRNNDA S 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 05/26/2008 [facility], KVNG R 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 05/26/2008 [facility], KVNG R 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 05/26/2008 [facility] 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 05/26/2008 MUOGHALU DDS, WILLARD N 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 06/03/2008 MUOGHALU DDS, WILLARD N 316 PF PSYCHIC FACTORS MED COND 06/03/2008 [facility] KNIGHT R 316 PF PSYCHIC FACTORS MED COND [...] 316 PF PSYCHIC FACTORS MED COND 06/03/2008 FRANKYLETTY ORTEGA APRN 316 PF PSYCHIC FACTORS MED COND [...] PF PSYCHIC FACTORS MED COND 06/03/2008 WANG ORGAN PIPE VOICER, ROBERT 316 PF PSYCHIC FACTORS MED COND 06/03/2008 WANG ORGAN PIPE VOICER, ROBERT 316 PF PSYCHIC FACTORS MED COND 06/03/2008 LETTY WILKINS APRN S 316 PF PSYCHIC FACTORS MED COND 06/03/2008 [facility], KVNG R 316 PF PSYCHIC FACTORS MED COND 06/03/2008 [facility], KVNG R 316 PF PSYCHIC FACTORS MED COND 06/03/2008 WANG ORGAN PIPE VOICER, ROBERT 316 PF PSYCHIC FACTORS MED COND 06/03/2008 [facility], KVNG R 316 PF PSYCHIC FACTORS MED COND 06/03/2008 LETTY WILKINS APRN S 316 PF PSYCHIC FACTORS MED COND 06/03/2008 [facility], KVNG R 316 PF PSYCHIC FACTORS MED COND 06/03/2008 [facility], KVNG R 316 PF PSYCHIC FACTORS MED COND 06/03/2008 [facility], KVNG R 316 PF PSYCHIC FACTORS MED COND 06/03/2008 MUOGHALU DDS, WILLARD N 316 PF PSYCHIC FACTORS MED COND 09/07/2008 MUOGHALU DDS, WILLARD N 465.9 Upper Respiratory Infection 09/07/2008 MUOGHALU DDS, WILLARD N V58.69 Medication High Risk 09/07/2008 [facility], KVNG R 465.9 Upper Respiratory Infection 09/07/2008 [facility], [facility] R V58.69 Medication High Risk 09/07/2008 465.9 Upper Respiratory Infection 09/07/2008 V58.69 Medication High Risk 09/07/2008 465.9 Upper Respiratory Infection 09/07/2008 V58.69 Medication High Risk 09/07/2008 [facility], KVNG R 465.9 Upper Respiratory Infection 09/07/2008 [facility], [facility] R V58.69 Medication High [...] Infection 09/07/2008 V58.69 Medication High Risk 09/07/2008 [facility] 465.9 Upper Respiratory Infection 09/07/2008 [facility], KVNG R V58.69 Medication High Risk 09/07/2008 [facility], KVNG R 465.9 Upper Respiratory Infection 09/07/2008 [facility], KVNG R V58.69 Medication High Risk 09/07/2008 [facility], KVNG R 465.9 Upper Respiratory Infection 09/07/2008 [facility], KVNG R V58.69 Medication High Risk 09/07/2008 MUNA SAUNDERS, NATHALIE 465.9 Upper Respiratory Infection 09/07/2008 NATHALIE TORO MD V58.69 Medication High Risk 09/07/2008 [facility], KVNG R 465.9 Upper Respiratory Infection 09/07/2008 [facility], KVNG R V58.69 Medication High Risk 09/07/2008 REZA ZAPATA, EDUARDO S 465.9 Upper Respiratory Infection 09/07/2008 REZA ZAPATA, EDUARDO S V58.69 Medication High Risk 09/07/2008 [facility], KVNG R 465.9 Upper Respiratory Infection 09/07/2008 [facility], KVNG R V58.69 Medication High Risk 09/07/2008 [facility], KVNG R 465.9 Upper Respiratory Infection 09/07/2008 [facility], [facility] R V58.69 Medication High Risk 09/07/2008 LETTY WILKINS APRN S 465.9 Upper Respiratory Infection 09/07/2008 FRANKY DAY LETTY S V58.69 Medication High Risk 09/07/2008 NATHALIE TORO MD 465.9 Upper Respiratory Infection 09/07/2008 NATHALIE TORO MD V58.69 Medication High Risk 09/07/2008 [facility], KVNG R 465.9 Upper Respiratory Infection 09/07/2008 [facility], KVNG R V58.69 Medication High Risk 09/07/2008 NATHALIE TORO MD 465.9 Upper Respiratory Infection 09/07/2008 NATHALIE TORO MD V58.69 Medication High Risk 09/07/2008 [facility], KVNG R 465.9 Upper Respiratory Infection 09/07/2008 [facility], KV[facility] R V58.69 Medication High Risk 09/07/2008 [facility], KVNG R 465.9 Upper Respiratory Infection 09/07/2008 [facility], [facility] R V58.69 Medication High Risk 09/07/2008 [facility], KVNG R 465.9 Upper Respiratory Infection 09/07/2008 [facility], [facility] R V58.69 Medication High Risk 09/07/2008 WANG ORGAN PIPE VOICER, ROBERT 465.9 Upper Respiratory Infection 09/07/2008 WANG ORGAN PIPE VOICER, ROBERT V58.69 Medication High Risk 09/07/2008 WANG ORGAN PIPE VOICER, ROBERT 465.9 Upper Respiratory Infection 09/07/2008 WANG ORGAN PIPE VOICER, ROBERT V58.69 Medication High Risk 09/07/2008 FRANKY ORGAN PIPE VOICER, LETTY S 465.9 Upper Respiratory Infection 09/07/2008 FRANKY ORGAN PIPE VOICER, LETTY S V58.69 Medication High Risk 09/07/2008 [facility], K[facility] R 465.9 Upper Respiratory Infection 09/07/2008 [facility], [facility] R V58.69 Medication High Risk 09/07/2008 [facility], KVNG R 465.9 Upper Respiratory Infection 09/07/2008 [facility], KVNG R V58.69 Medication High Risk 09/07/2008 [employer], ROBERT 465.9 Upper Respiratory Infection 09/07/2008 [employer], ROBERT V58.69 Medication High Risk 09/07/2008 [facility], KVNG R 465.9 Upper Respiratory Infection 09/07/2008 [facility], KVNG R V58.69 Medication High Risk 09/07/2008 [employer], LETTY S 465.9 Upper Respiratory Infection 09/07/2008 [employer], LETTY S V58.69 Medication High Risk 09/07/2008 [facility], KVNG R 465.9 Upper Respiratory Infection 09/07/2008 [facility], KVNG R V58.69 Medication High Risk 09/07/2008 [facility], KVGN R 465.9 Upper Respiratory Infection 09/07/2008 [facility], KVNG R V58.69 Medication High Risk 09/07/2008 [facility], KVNG R 465.9 Upper Respiratory Infection 09/07/2008 [facility], KVNG R V58.69 Medication High Risk 09/07/2008 MUOGHALU DDS, WILLARD N 465.9 Upper Respiratory Infection 09/07/2008 MUOGHALU DDS, WILLARD N V58.69 Medication High Risk 10/12/2008 MUOGHALU DDS, WILLARD N NODX No Diagnosis 10/12/2008 [facility], KVNG R NODX No Diagnosis 10/12/2008 NODX No Diagnosis 10/12/2008 NODX No Diagnosis 10/12/2008 [facility], KVNG R NODX No Diagnosis 10/12/2008 NODX No Diagnosis 10/12/2008 NODX No Diagnosis 10/12/2008 NODX No Diagnosis 10/12/2008 NODX No Diagnosis 10/12/2008 NODX No Diagnosis 10/12/2008 NODX No Diagnosis 10/12/2008 NODX No Diagnosis 10/12/2008 NODX No Diagnosis 10/12/2008 NODX No Diagnosis 10/12/2008 [facility], KVNG R NODX No Diagnosis 10/12/2008 [facility], KVNG R NODX No Diagnosis 10/12/2008 [facility], KVNG R NODX No Diagnosis 10/12/2008 MUNA SAUNDERS, NATHALIE NODX No Diagnosis 10/12/2008 [facility], KVNG R NODX No Diagnosis 10/12/2008 EDUARDO COBB JR S NODX No Diagnosis 10/12/2008 [facility], KVNG R NODX No Diagnosis 10/12/2008 [facility], KVNG R NODX No Diagnosis 10/12/2008 FRANKY ORGAN PIPE VOICER, LETTY S NODX No Diagnosis 10/12/2008 MUNA SAUNDERS, NATHALIE NODX No Diagnosis 10/12/2008 [facility], [facility] NODX No Diagnosis 10/12/2008 MUNA SAUNDERS, NATHALIE NODX No Diagnosis 10/12/2008 [facility], [facility] NODX No Diagnosis 10/12/2008 [facility], [facility] NODX No Diagnosis 10/12/2008 [facility], [facility] NODX No Diagnosis 10/12/2008 WANG ORGAN PIPE VOICER, ROBERT NODX No Diagnosis 10/12/2008 WANG ORGAN PIPE VOICER, ROBERT NODX No Diagnosis 10/12/2008 FRANKY ORGAN PIPE VOICER, LETTY S NODX No Diagnosis 10/12/2008 [facility], [facility] NODX No Diagnosis 10/12/2008 [facility], [facility] NODX No Diagnosis 10/12/2008 WANG ORGAN PIPE VOICER, ROBERT NODX No Diagnosis 10/12/2008 [facility], [facility] NODX No Diagnosis 10/12/2008 FRANKY ORGAN PIPE VOICER, LETTY S NODX No Diagnosis 10/12/2008 [facility], [facility] NODX No Diagnosis 10/12/2008 [facility], [facility] NODX No Diagnosis 10/12/2008 [facility], [facility] NODX No Diagnosis 10/12/2008 MUOGHALU DDS, WLILARD N NODX No Diagnosis 10/27/2008 MUOGHALU DDS, WILLARD N 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 10/27/2008 MUOGHALU DDS, WILLRAD N 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 10/27/2008 [facility], [facility] 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 10/27/2008 [facility], [facility] 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 10/27/2008 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 10/27/2008 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 10/27/2008 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 10/27/2008 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 10/27/2008 [facility], [facility] 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 10/27/2008 [facility], [facility] 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 [...] 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 10/27/2008 [facility], [facility] 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 10/27/2008 [facility], [facility] 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 10/27/2008 [facility], [facility] 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 10/27/2008 [facility], [facility] 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 10/27/2008 [facility], [facility] 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 10/27/2008 [facility], [facility] 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 10/27/2008 NATHALIE TORO MD 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 10/27/2008 NATHALIE TORO MD 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 10/27/2008 [facility], [facility] 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 10/27/2008 [facility], [facility] 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 10/27/2008 REZA ZAPATA EDUARDO S 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 10/27/2008 EDUARDO COBB JR S 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 10/27/2008 [facility], [facility] 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 10/27/2008 [facility], [facility] 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 10/27/2008 [facility], [facility] 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 10/27/2008 [facility], [facility] 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 10/27/2008 FRANKY DAY, LETTY S 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 10/27/2008 FRANKY DAY LETTY S 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 10/27/2008 NATHALIE TORO MD 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 10/27/2008 NATHALIE TORO MD 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 10/27/2008 [facility], [facility] 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 10/27/2008 [facility], [facility] 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 10/27/2008 NATHALIE TORO MD 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 10/27/2008 NATHALIE TORO MD 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 10/27/2008 [facility], [facility] 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 10/27/2008 [facility], [facility] 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 10/27/2008 [facility], [facility] 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 10/27/2008 [facility], [facility] 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 10/27/2008 [facility], [facility] 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 10/27/2008 [facility], [facility] 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 10/27/2008 [facility], [facility] 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 10/27/2008 [facility], [facility] 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 10/27/2008 WANG ORGAN PIPE VOICER, ROBERT 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 10/27/2008 WANG ORGAN PIPE VOICER, ROBERT 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 10/27/2008 [facility], [facility] 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 10/27/2008 [facility], [facility] 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 10/27/2008 FRANKY ORGAN PIPE VOICER, LETTY S 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 10/27/2008 FRANKY ORGAN PIPE VOICER, LETTY S 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 10/27/2008 [facility], [facility] 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 11/15/2008 MUOGHALU DDS, WILLARD N 112.1 Vaginitis Elena Albicans 11/15/2008 [facility], [facility] 112.1 Vaginitis Elena Albicans 11/15/2008 112.1 Vaginitis Elena Albicans 11/15/2008 112.1 Vaginitis Elena Albicans 11/15/2008 [facility], [facility] 112.1 Vaginitis Elena Albicans 11/15/2008 112.1 Vaginitis Elena Albicans 11/15/2008 112.1 Vaginitis Elena Albicans 11/15/2008 112.1 Vaginitis Elena Albicans 11/15/2008 112.1 Vaginitis Elena Albicans 11/15/2008 112.1 Vaginitis Elena Albicans 11/15/2008 112.1 Vaginitis Elena Albicans 11/15/2008 112.1 Vaginitis Elena Albicans 11/15/2008 112.1 Vaginitis Elena Albicans 11/15/2008 112.1 Vaginitis Elena Albicans 11/15/2008 [facility], [facility] 112.1 Vaginitis Elena Albicans 11/15/2008 [facility], [facility] 112.1 Vaginitis Elena Albicans 11/15/2008 [facility], [facility] 112.1 Vaginitis Elena Albicans 11/15/2008 NATHALIE TORO MD 112.1 Vaginitis Elena Albicans 11/15/2008 [facility], [facility] 112.1 Vaginitis Elena Albicans 11/15/2008 EDUARDO COBB JR 112.1 Vaginitis Elena Albicans 11/15/2008 [facility], [facility] 112.1 Vaginitis Elena Albicans 11/15/2008 [facility], [facility] 112.1 Vaginitis Elena Albicans 11/15/2008 LETTY WILKINS APRN 112.1 Vaginitis Elena Albicans 11/15/2008 NATHALIE TORO MD 112.1 Vaginitis Elena Albicans 11/15/2008 [facility], [facility] 112.1 Vaginitis Elena Albicans 11/15/2008 NATHALIE TORO MD 112.1 Vaginitis Elena Albicans 11/15/2008 [facility], [facility] 112.1 Vaginitis Elena Albicans 11/15/2008 [facility], [facility] 112.1 Vaginitis Elena Albicans 11/15/2008 [facility], [facility] 112.1 Vaginitis Elena Albicans 11/15/2008 WANG ORGAN PIPE VOICER, ROBERT 112.1 Vaginitis Elena Albicans 11/15/2008 WANG ORGAN PIPE VOICER, ROBERT 112.1 Vaginitis Elena Albicans 11/15/2008 FRANKY DAY, LETTY S 112.1 Vaginitis Elena Albicans 11/15/2008 [facility], [facility] 112.1 Vaginitis Elena Albicans 11/15/2008 [facility], [facility] 112.1 Vaginitis Elena Albicans 11/15/2008 WANG ORGAN PIPE VOICER, ORBERT 112.1 Vaginitis Elena Albicans 11/15/2008 [facility], [facility] 112.1 Vaginitis Elena Albicans 11/15/2008 SHEILA WILKINS APRNA S 112.1 Vaginitis Elena Albicans 11/15/2008 [facility], [facility] 112.1 Vaginitis Elena Albicans 11/15/2008 [facility], [facility] 112.1 Vaginitis Elena Albicans 11/15/2008 [facility], [facility] 112.1 Vaginitis Elena Albicans 11/15/2008 MANASA SHEPARDS, WILLARD N 112.1 Vaginitis Elena Albicans 12/08/2008 MANASA DDS, WILLARD N 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 12/08/2008 [facility], [facility] 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 12/08/2008 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 12/08/2008 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 12/08/2008 [facility], [facility] 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 [...] 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 12/08/2008 [facility], [facility] 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 12/08/2008 [facility], [facility] 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 12/08/2008 [facility], [facility] 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 12/08/2008 NATHALIE TORO MD 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 12/08/2008 [facility], [facility] 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 12/08/2008 EDUARDO COBB JR S 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 12/08/2008 [facility], [facility] 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 12/08/2008 [facility], [facility] 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 12/08/2008 FRANKY ORGAN PIPE VOICER, LETTY S 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 12/08/2008 NATHALIE TORO MD 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 12/08/2008 [facility], [facility] 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 12/08/2008 NATHALIE TORO MD 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 12/08/2008 [facility], [facility] 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 12/08/2008 [facility], [facility] 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 12/08/2008 [facility], [facility] 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 12/08/2008 WANG ORGAN PIPE VOICER, ROBERT 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 12/08/2008 WANG ORGAN PIPE VOICER, ROBERT 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 12/08/2008 FRANKY ORGAN PIPE VOICER, LETTY S 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 12/08/2008 [facility], [facility] 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 12/08/2008 [facility], [facility] 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 12/08/2008 WANG ORGAN PIPE VOICER, ROBERT 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 12/08/2008 [facility], [facility] 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 12/08/2008 FRANKY ORGAN PIPE VOICER, LETTY S 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 12/08/2008 [facility], [facility] 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 12/08/2008 [facility], [facility] 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 12/08/2008 [facility], [facility] 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 12/08/2008 MUOGHALU DDS, WILLARD N 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 12/22/2008 MUOGHALU DDS, WILLARD N 008.8 Gastroenteritis Viral 12/22/2008 [facility], [facility] 008.8 Gastroenteritis Viral 12/22/2008 008.8 Gastroenteritis Viral 12/22/2008 008.8 Gastroenteritis Viral 12/22/2008 [facility], [facility] 008.8 Gastroenteritis Viral 12/22/2008 008.8 Gastroenteritis Viral 12/22/2008 008.8 Gastroenteritis Viral 12/22/2008 008.8 Gastroenteritis Viral 12/22/2008 008.8 Gastroenteritis Viral 12/22/2008 008.8 Gastroenteritis Viral 12/22/2008 008.8 Gastroenteritis Viral 12/22/2008 008.8 Gastroenteritis Viral 12/22/2008 008.8 Gastroenteritis Viral 12/22/2008 008.8 Gastroenteritis Viral 12/22/2008 [facility], [facility] 008.8 Gastroenteritis Viral 12/22/2008 [facility], [facility] 008.8 Gastroenteritis Viral 12/22/2008 [facility], [facility] 008.8 Gastroenteritis Viral 12/22/2008 NATHALIE TORO MD 008.8 Gastroenteritis Viral 12/22/2008 [facility], [facility] 008.8 Gastroenteritis Viral 12/22/2008 EDUARDO COBB JR 008.8 Gastroenteritis Viral 12/22/2008 [facility], [facility] 008.8 Gastroenteritis Viral 12/22/2008 [facility], [facility] 008.8 Gastroenteritis Viral 12/22/2008 LETTY WILKINS APRN 008.8 Gastroenteritis Viral 12/22/2008 NATHALIE TORO MD 008.8 Gastroenteritis Viral 12/22/2008 [facility], [facility] 008.8 Gastroenteritis Viral 12/22/2008 NATHALIE TORO MD 008.8 Gastroenteritis Viral 12/22/2008 [facility], [facility] 008.8 Gastroenteritis Viral 12/22/2008 [facility], [facility] 008.8 Gastroenteritis Viral 12/22/2008 [facility], [facility] 008.8 Gastroenteritis Viral 12/22/2008 WANG ORGAN PIPE VOICER, ROBERT 008.8 Gastroenteritis Viral 12/22/2008 WANG ORGAN PIPE VOICER, ROBERT 008.8 Gastroenteritis Viral 12/22/2008 FRANKY ORGAN PIPE VOICER, LETTY S 008.8 Gastroenteritis Viral 12/22/2008 [facility], [facility] 008.8 Gastroenteritis Viral 12/22/2008 [facility], [facility] 008.8 Gastroenteritis Viral 12/22/2008 WANG ORGAN PIPE VOICER, ROBERT 008.8 Gastroenteritis Viral 12/22/2008 [facility], [facility] 008.8 Gastroenteritis Viral 12/22/2008 FRANKY ORGAN PIPE VOICER, LETTY S 008.8 Gastroenteritis Viral 12/22/2008 [facility], [facility] 008.8 Gastroenteritis Viral 12/22/2008 [facility], [facility] 008.8 Gastroenteritis Viral 12/22/2008 [facility], [facility] 008.8 Gastroenteritis Viral 12/22/2008 MUOGHALU DDS, WILLARD N 008.8 Gastroenteritis Viral 12/23/2008 MUOGHALU DDS, WILLARD N 276.8 Hypopotassemia 12/23/2008 [facility], [facility] 276.8 Hypopotassemia 12/23/2008 276.8 Hypopotassemia 12/23/2008 276.8 Hypopotassemia 12/23/2008 [facility], [facility] 276.8 Hypopotassemia 12/23/2008 276.8 Hypopotassemia 12/23/2008 276.8 Hypopotassemia 12/23/2008 276.8 Hypopotassemia 12/23/2008 276.8 Hypopotassemia 12/23/2008 276.8 Hypopotassemia 12/23/2008 276.8 Hypopotassemia 12/23/2008 276.8 Hypopotassemia 12/23/2008 276.8 Hypopotassemia 12/23/2008 276.8 Hypopotassemia 12/23/2008 [facility], [facility] 276.8 Hypopotassemia 12/23/2008 [facility], [facility] 276.8 Hypopotassemia 12/23/2008 [facility], [facility] 276.8 Hypopotassemia 12/23/2008 MUNA SAUNDERS, NATHALIE 276.8 Hypopotassemia 12/23/2008 [facility], [facility] 276.8 Hypopotassemia 12/23/2008 EDUARDO COBB JR S 276.8 Hypopotassemia 12/23/2008 [facility], [facility] 276.8 Hypopotassemia 12/23/2008 [facility], [facility] 276.8 Hypopotassemia 12/23/2008 FRANKYJORDAN DAY, LETTY S 276.8 Hypopotassemia 12/23/2008 NATHALIE TORO MD 276.8 Hypopotassemia 12/23/2008 [facility], [facility] 276.8 Hypopotassemia 12/23/2008 NATHALIE TORO MD 276.8 Hypopotassemia 12/23/2008 [facility], [facility] 276.8 Hypopotassemia 12/23/2008 [facility], [facility] 276.8 Hypopotassemia 12/23/2008 [facility], [facility] 276.8 Hypopotassemia 12/23/2008 WANG ORGAN PIPE VOICER, ROBERT 276.8 Hypopotassemia 12/23/2008 WANG ORGAN PIPE VOICER, ROBERT 276.8 Hypopotassemia 12/23/2008 FRANKY ORGAN PIPE VOICER, LETTY S 276.8 Hypopotassemia 12/23/2008 [facility], [facility] 276.8 Hypopotassemia 12/23/2008 [facility], [facility] 276.8 Hypopotassemia 12/23/2008 WANG ORGAN PIPE VOICER, ROBERT 276.8 Hypopotassemia 12/23/2008 [facility], [facility] 276.8 Hypopotassemia 12/23/2008 FRANKY ORGAN PIPE VOICER, LETTY S 276.8 Hypopotassemia 12/23/2008 [facility], [facility] 276.8 Hypopotassemia 12/23/2008 [facility], [facility] 276.8 Hypopotassemia 12/23/2008 [facility], [facility] 276.8 Hypopotassemia 12/23/2008 MUOGHALU DDS, WILLARD N 276.8 Hypopotassemia 02/06/2009 MUOGHALU DDS, WILLARD N 346.90 Migraine Unspecified 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 Migraine 02/06/2009 [facility], [facility] 346.90 Migraine Unspecified 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 Migraine 02/06/2009 346.90 Migraine Unspecified 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 Migraine 02/06/2009 346.90 Migraine Unspecified 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 Migraine 02/06/2009 [facility], [facility] 346.90 Migraine Unspecified [...] 346.90 Migraine Unspecified 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 Migraine 02/06/2009 [facility], [facility] 346.90 Migraine Unspecified 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 Migraine 02/06/2009 [facility], [facility] 346.90 Migraine Unspecified 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 Migraine 02/06/2009 [facility], [facility] 346.90 Migraine Unspecified 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 Migraine 02/06/2009 NATHALIE TORO MD 346.90 Migraine Unspecified 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 Migraine 02/06/2009 [facility], [facility] 346.90 Migraine Unspecified 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 Migraine 02/06/2009 EDUARDO COBB JR 346.90 Migraine Unspecified 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 Migraine 02/06/2009 [facility], [facility] 346.90 Migraine Unspecified 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 Migraine 02/06/2009 [facility], [facility] 346.90 Migraine Unspecified 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 Migraine 02/06/2009 LETTY WILKINS APRN 346.90 Migraine Unspecified 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 Migraine 02/06/2009 NATHALIE TORO MD 346.90 Migraine Unspecified 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 Migraine 02/06/2009 [facility], [facility] 346.90 Migraine Unspecified 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 Migraine 02/06/2009 NATHALIE TORO MD 346.90 Migraine Unspecified 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 Migraine 02/06/2009 [facility], [facility] 346.90 Migraine Unspecified 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 Migraine 02/06/2009 [facility], [facility] 346.90 Migraine Unspecified 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 Migraine 02/06/2009 [facility], [facility] 346.90 Migraine Unspecified 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 Migraine 02/06/2009 WANG ORGAN PIPE VOICER, ROBERT 346.90 Migraine Unspecified 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 Migraine 02/06/2009 WANG ORGAN PIPE VOICER, ROBERT 346.90 Migraine Unspecified 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 Migraine 02/06/2009 FRANKY ORGAN PIPE VOICER, LETTY S 346.90 Migraine Unspecified 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 Migraine 02/06/2009 [facility], [facility] 346.90 Migraine Unspecified 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 Migraine 02/06/2009 [facility], [facility] 346.90 Migraine Unspecified 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 Migraine 02/06/2009 WANG ORGAN PIPE VOICER, ROBERT 346.90 Migraine Unspecified 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 Migraine 02/06/2009 [facility], [facility] 346.90 Migraine Unspecified 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 Migraine 02/06/2009 FRANKY ORGAN PIPE VOICER, LETTY S 346.90 Migraine Unspecified 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 Migraine 02/06/2009 [facility], [facility] 346.90 Migraine Unspecified 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 Migraine 02/06/2009 [facility], [facility] 346.90 Migraine Unspecified 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 Migraine 02/06/2009 [facility], [facility] 346.90 Migraine Unspecified 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 Migraine 02/06/2009 MUOGHALU DDS, WILLARD N 346.90 Migraine Unspecified 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 Migraine 02/23/2009 MUOGHALU DDS, WILLARD N 300.02 GENERALIZED ANXIETY DISORDER 02/23/2009 [facility], [facility] 300.02 GENERALIZED ANXIETY DISORDER 02/23/2009 300.02 GENERALIZED ANXIETY DISORDER 02/23/2009 300.02 GENERALIZED ANXIETY DISORDER 02/23/2009 [facility], [facility] 300.02 GENERALIZED ANXIETY DISORDER 02/23/2009 300.02 GENERALIZED ANXIETY DISORDER 02/23/2009 300.02 GENERALIZED ANXIETY DISORDER 02/23/2009 300.02 GENERALIZED ANXIETY DISORDER 02/23/2009 300.02 GENERALIZED ANXIETY DISORDER 02/23/2009 300.02 GENERALIZED ANXIETY DISORDER 02/23/2009 300.02 GENERALIZED ANXIETY DISORDER 02/23/2009 300.02 GENERALIZED ANXIETY DISORDER 02/23/2009 300.02 GENERALIZED ANXIETY DISORDER 02/23/2009 300.02 GENERALIZED ANXIETY DISORDER 02/23/2009 [facility], [facility] R 300.02 GENERALIZED ANXIETY DISORDER 02/23/2009 [facility], [facility] R 300.02 GENERALIZED ANXIETY DISORDER 02/23/2009 [facility], [facility] R 300.02 GENERALIZED ANXIETY DISORDER 02/23/2009 NATHALIE TORO MD 300.02 GENERALIZED ANXIETY DISORDER 02/23/2009 [facility], [facility] R 300.02 GENERALIZED ANXIETY DISORDER 02/23/2009 EDUARDO COBB JR S 300.02 GENERALIZED ANXIETY DISORDER 02/23/2009 [facility], [facility] R 300.02 GENERALIZED ANXIETY DISORDER 02/23/2009 [facility], [facility] R 300.02 GENERALIZED ANXIETY DISORDER 02/23/2009 SHEILA WILKINS APRNA S 300.02 GENERALIZED ANXIETY DISORDER 02/23/2009 NATHALIE TORO MD 300.02 GENERALIZED ANXIETY DISORDER 02/23/2009 [facility], [facility] R 300.02 GENERALIZED ANXIETY DISORDER 02/23/2009 NATHALIE TORO MD 300.02 GENERALIZED ANXIETY DISORDER 02/23/2009 [facility], [facility] R 300.02 GENERALIZED ANXIETY DISORDER 02/23/2009 [facility], [facility] R 300.02 GENERALIZED ANXIETY DISORDER 02/23/2009 [facility], [facility] R 300.02 GENERALIZED ANXIETY DISORDER 02/23/2009 [employer], ROBERT 300.02 GENERALIZED ANXIETY DISORDER 02/23/2009 [employer], ROBERT 300.02 GENERALIZED ANXIETY DISORDER 02/23/2009 SHEILA WILKINS APRNA S 300.02 GENERALIZED ANXIETY DISORDER 02/23/2009 [facility], [facility] R 300.02 GENERALIZED ANXIETY DISORDER 02/23/2009 [facility] LSCS, KVNG R 300.02 GENERALIZED ANXIETY DISORDER 02/23/2009 WANG ORGAN PIPE VOICER, ROBERT 300.02 GENERALIZED ANXIETY DISORDER 02/23/2009 [facility] LSCS, KVNG R 300.02 GENERALIZED ANXIETY DISORDER 02/23/2009 ANTONIA WILKINS APRNNDA S 300.02 GENERALIZED ANXIETY DISORDER 02/23/2009 [facility] CS, KVNG R 300.02 GENERALIZED ANXIETY DISORDER 02/23/2009 [facility] LSCS, KVNG R 300.02 GENERALIZED ANXIETY DISORDER 02/23/2009 [facility] LSCS, KVNG R 300.02 GENERALIZED ANXIETY DISORDER 02/23/2009 MUOGHALU DDS, WILLARD N 300.02 GENERALIZED ANXIETY DISORDER 05/16/2009 MUOGHALU DDS, WILLARD N 461.0 Acute Maxillary Sinusitis 05/16/2009 [facility]SCS, KVNG R 461.0 Acute Maxillary Sinusitis 05/16/2009 461.0 Acute Maxillary Sinusitis 05/16/2009 461.0 Acute Maxillary Sinusitis 05/16/2009 [facility]SCS, KVNG R 461.0 Acute Maxillary Sinusitis 05/16/2009 461.0 Acute Maxillary Sinusitis 05/16/2009 461.0 Acute Maxillary Sinusitis 05/16/2009 461.0 Acute Maxillary Sinusitis 05/16/2009 461.0 Acute Maxillary Sinusitis 05/16/2009 461.0 Acute Maxillary Sinusitis 05/16/2009 461.0 Acute Maxillary Sinusitis 05/16/2009 461.0 Acute Maxillary Sinusitis 05/16/2009 461.0 Acute Maxillary Sinusitis 05/16/2009 461.0 Acute Maxillary Sinusitis 05/16/2009 [facility] [place], KVNG R 461.0 Acute Maxillary Sinusitis 05/16/2009 [facility] LSCS, KVNG R 461.0 Acute Maxillary Sinusitis 05/16/2009 [facility], KVNG R 461.0 Acute Maxillary Sinusitis 05/16/2009 NATHALIE TORO MD 461.0 Acute Maxillary Sinusitis 05/16/2009 [facility], KVNG R 461.0 Acute Maxillary Sinusitis 05/16/2009 EDUARDO COBB JR S 461.0 Acute Maxillary Sinusitis 05/16/2009 [facility], KVNG R 461.0 Acute Maxillary Sinusitis 05/16/2009 [facility], KVNG R 461.0 Acute Maxillary Sinusitis 05/16/2009 FRANKYANTONIA ORTEGA APRNNDA S 461.0 Acute Maxillary Sinusitis 05/16/2009 NATHALIE TORO MD 461.0 Acute Maxillary Sinusitis 05/16/2009 [facility], KVNG R 461.0 Acute Maxillary Sinusitis 05/16/2009 NATHALIE TORO MD 461.0 Acute Maxillary Sinusitis 05/16/2009 [facility], KVNG R 461.0 Acute Maxillary Sinusitis 05/16/2009 [facility] [place], KVNG R 461.0 Acute Maxillary Sinusitis 05/16/2009 [facility], KVNG R 461.0 Acute Maxillary Sinusitis 05/16/2009 WANG ORGAN PIPE VOICER, ROBERT 461.0 Acute Maxillary Sinusitis 05/16/2009 WANG ORGAN PIPE VOICER, ROBERT 461.0 Acute Maxillary Sinusitis 05/16/2009 FRANKY DAY LETTY S 461.0 Acute Maxillary Sinusitis 05/16/2009 [facility], KVNG R 461.0 Acute Maxillary Sinusitis 05/16/2009 [facility], KVNG R 461.0 Acute Maxillary Sinusitis 05/16/2009 ROBERT PIÑA APRN 461.0 Acute Maxillary Sinusitis 05/16/2009 [facility], KVNG R 461.0 Acute Maxillary Sinusitis 05/16/2009 FRANKY DAYANTONIALETTY S 461.0 Acute Maxillary Sinusitis 05/16/2009 [facility], KVNG R 461.0 Acute Maxillary Sinusitis 05/16/2009 [facility], KVNG R 461.0 Acute Maxillary Sinusitis 05/16/2009 [facility], KVNG R 461.0 Acute Maxillary Sinusitis 05/16/2009 MUOGHALU DDS, WILLARD N 461.0 Acute Maxillary Sinusitis 08/10/2009 MUOGHALU DDS, WLILARD N 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 [facility], KVNG R 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 [facility], KVNG R 229.8 Lymph Node [...] 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 [facility], KVNG R 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 [facility], KVNG R 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 [facility], KVNG R 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 NATHALIE TORO MD 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 [facility], KVNG R 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 COBB JR, EDUARDO S 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 [facility] [place], KVNG R 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 [facility] CS, KVNG R 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 FRANKY ORGAN PIPE VOICER, LETTY S 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 NATHALIE TORO MD 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 [facility] [place], KVNG R 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 NATHALIE TORO MD 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 [facility] [place], KVNG R 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 [facility] [place], KVNG R 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 [facility], KVNG R 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 WANG ORGAN PIPE VOICER, ROBERT 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 WANG ORGAN PIPE VOICER, ROBERT 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 FRANKY ORGAN PIPE VOICER, LETTY S 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 [facility], KVNG R 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 [facility], KVNG R 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 WANG ORGAN PIPE VOICER, ROBERT 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 [facility], KVNG R 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 FRANKY ORGAN PIPE VOICER, LETTY S 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 [facility], KVNG R 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 [facility] [place], KVNG R 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 [facility] [place], KVNG R 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 MUOGHALU DDS, WILLARD N 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 10/19/2009 MUOGHALU DDS, WILLARD N 724.3 Sciatica 10/19/2009 [facility] [place], KVNG R 724.3 Sciatica 10/19/2009 724.3 Sciatica 10/19/2009 724.3 Sciatica 10/19/2009 [facility], KVNG R 724.3 Sciatica 10/19/2009 724.3 Sciatica [...] LSCS, KVNG R 724.3 Sciatica 10/19/2009 FRANKY DAY, LETTY S 724.3 Sciatica 10/19/2009 MUNA SAUNDERS, NATHALIE 724.3 Sciatica 10/19/2009 [facility]S, KVNG R 724.3 Sciatica 10/19/2009 NATHALIE TORO MD 724.3 Sciatica 10/19/2009 [facility], KVNG R 724.3 Sciatica 10/19/2009 [facility], KVNG R 724.3 Sciatica 10/19/2009 [facility], KVNG R 724.3 Sciatica 10/19/2009 WANG ORGAN PIPE VOICER, ROBERT 724.3 Sciatica 10/19/2009 WANG ORGAN PIPE VOICER, ROBERT 724.3 Sciatica 10/19/2009 FRANKY ORGAN PIPE VOICER, LETTY S 724.3 Sciatica 10/19/2009 [facility], KVNG R 724.3 Sciatica 10/19/2009 [facility], KVNG R 724.3 Sciatica 10/19/2009 ROBERT PIÑA APRN 724.3 Sciatica 10/19/2009 [facility], KVNG R 724.3 Sciatica 10/19/2009 LETTY WILKINS APRN 724.3 Sciatica 10/19/2009 [facility], KVNG R 724.3 Sciatica 10/19/2009 [facility], KVNG R 724.3 Sciatica 10/19/2009 [facility], KVNG R 724.3 Sciatica 10/19/2009 MUOGHALU DDS, WILLARD N 724.3 Sciatica 08/22/2010 MUOGHALU DDS, WILLARD N 424.0 MITRAL VALVE DISORDERS 08/22/2010 MUOGHALU DDS, WILLARD N 461.8 Other Acute Sinusitis 08/22/2010 [facility], KVNG R 424.0 MITRAL VALVE DISORDERS 08/22/2010 [facility], KVNG R 461.8 Other Acute Sinusitis 08/22/2010 424.0 MITRAL VALVE DISORDERS 08/22/2010 461.8 Other Acute Sinusitis 08/22/2010 424.0 MITRAL VALVE DISORDERS 08/22/2010 461.8 Other Acute Sinusitis 08/22/2010 [facility], KVNG R 424.0 MITRAL VALVE DISORDERS 08/22/2010 [facility], KVNG R 461.8 Other Acute [...] DISORDERS 08/22/2010 461.8 Other Acute Sinusitis 08/22/2010 [facility], KVNG R 424.0 MITRAL VALVE DISORDERS 08/22/2010 [facility], KVNG R 461.8 Other Acute Sinusitis 08/22/2010 [facility] [place], KVNG R 424.0 MITRAL VALVE DISORDERS 08/22/2010 [facility], KVNG R 461.8 Other Acute Sinusitis 08/22/2010 [facility], KVNG R 424.0 MITRAL VALVE DISORDERS 08/22/2010 [facility], KVNG R 461.8 Other Acute Sinusitis 08/22/2010 NATHALIE TORO MD 424.0 MITRAL VALVE DISORDERS 08/22/2010 NATHALIE TORO MD 461.8 Other Acute Sinusitis 08/22/2010 [facility], KVNG R 424.0 MITRAL VALVE DISORDERS 08/22/2010 [facility], KVNG R 461.8 Other Acute Sinusitis 08/22/2010 EDUARDO COBB JR S 424.0 MITRAL VALVE DISORDERS 08/22/2010 EDUARDO COBB JR S 461.8 Other Acute Sinusitis 08/22/2010 [facility], KVNG R 424.0 MITRAL VALVE DISORDERS 08/22/2010 [facility], KVNG R 461.8 Other Acute Sinusitis 08/22/2010 [facility], KVNG R 424.0 MITRAL VALVE DISORDERS 08/22/2010 [facility], KVNG R 461.8 Other Acute Sinusitis 08/22/2010 FRANKY ORGAN PIPE VOICER, LETTY S 424.0 MITRAL VALVE DISORDERS 08/22/2010 FRANKY DAY, LETTY S 461.8 Other Acute Sinusitis 08/22/2010 NATHALIE TORO MD 424.0 MITRAL VALVE DISORDERS 08/22/2010 NATHALIE TORO MD 461.8 Other Acute Sinusitis 08/22/2010 [facility], KVNG R 424.0 MITRAL VALVE DISORDERS 08/22/2010 [facility], KVNG R 461.8 Other Acute Sinusitis 08/22/2010 NATHALIE TORO MD 424.0 MITRAL VALVE DISORDERS 08/22/2010 NATHALIE TORO MD 461.8 Other Acute Sinusitis 08/22/2010 [facility], KVNG R 424.0 MITRAL VALVE DISORDERS 08/22/2010 [facility], KVNG R 461.8 Other Acute Sinusitis 08/22/2010 [facility], KVNG R 424.0 MITRAL VALVE DISORDERS 08/22/2010 [facility], KVNG R 461.8 Other Acute Sinusitis 08/22/2010 [facility], KVNG R 424.0 MITRAL VALVE DISORDERS 08/22/2010 [facility], KVNG R 461.8 Other Acute Sinusitis 08/22/2010 WANG ORGAN PIPE VOICER, ROBERT 424.0 MITRAL VALVE DISORDERS 08/22/2010 WANG ORGAN PIPE VOICER, ROBERT 461.8 Other Acute Sinusitis 08/22/2010 WANG ORGAN PIPE VOICER, ROBERT 424.0 MITRAL VALVE DISORDERS 08/22/2010 WANG ORGAN PIPE VOICER, ROBERT 461.8 Other Acute Sinusitis 08/22/2010 FRANKY ORGAN PIPE VOICER, LETTY S 424.0 MITRAL VALVE DISORDERS 08/22/2010 FRANKY ORGAN PIPE VOICER, LETTY S 461.8 Other Acute Sinusitis 08/22/2010 [facility], KVNG R 424.0 MITRAL VALVE DISORDERS 08/22/2010 [facility], KVNG R 461.8 Other Acute Sinusitis 08/22/2010 [facility], KVNG R 424.0 MITRAL VALVE DISORDERS 08/22/2010 [facility], KVNG R 461.8 Other Acute Sinusitis 08/22/2010 WANG ORGAN PIPE VOICER, ROBERT 424.0 MITRAL VALVE DISORDERS 08/22/2010 WANG ORGAN PIPE VOICER, ROBERT 461.8 Other Acute Sinusitis 08/22/2010 [facility], KVNG R 424.0 MITRAL VALVE DISORDERS 08/22/2010 [facility], KVNG R 461.8 Other Acute Sinusitis 08/22/2010 FRANKY ORGAN PIPE VOICER, LETTY S 424.0 MITRAL VALVE DISORDERS 08/22/2010 FRANKY ORGAN PIPE VOICER, LETTY S 461.8 Other Acute Sinusitis 08/22/2010 [facility], KVNG R 424.0 MITRAL VALVE DISORDERS 08/22/2010 [facility], KVNG R 461.8 Other Acute Sinusitis 08/22/2010 [facility], KVNG R 424.0 MITRAL VALVE DISORDERS 08/22/2010 [facility], KVNG R 461.8 Other Acute Sinusitis 08/22/2010 [facility], KVNG R 424.0 MITRAL VALVE DISORDERS 08/22/2010 [facility], KVNG R 461.8 Other Acute Sinusitis 08/22/2010 MUOGHALU DDS, WILLARD N 424.0 MITRAL VALVE DISORDERS 08/22/2010 MUOGHALU DDS, WILLARD N 461.8 Other Acute Sinusitis 08/29/2010 MUOGHALU DDS, WILLARD N 401.9 HYPERTENSION, UNSPECIFIED ESSENTIAL 08/29/2010 MUOGHALU DDS, WILLARD N 786.50 Chest Pain 08/29/2010 [facility], KVNG R 401.9 HYPERTENSION, UNSPECIFIED ESSENTIAL 08/29/2010 [facility], KVNG R 786.50 Chest Pain 08/29/2010 401.9 HYPERTENSION, UNSPECIFIED ESSENTIAL 08/29/2010 786.50 Chest Pain 08/29/2010 401.9 HYPERTENSION, UNSPECIFIED ESSENTIAL 08/29/2010 786.50 Chest Pain 08/29/2010 [facility], KVNG R 401.9 HYPERTENSION, UNSPECIFIED ESSENTIAL 08/29/2010 [facility], KVNG R 786.50 Chest Pain [...] UNSPECIFIED ESSENTIAL 08/29/2010 786.50 Chest Pain 08/29/2010 [facility], KVNG R 401.9 HYPERTENSION, UNSPECIFIED ESSENTIAL 08/29/2010 [facility], KVNG R 786.50 Chest Pain 08/29/2010 [facility], KVNG R 401.9 HYPERTENSION, UNSPECIFIED ESSENTIAL 08/29/2010 [facility], KVNG R 786.50 Chest Pain 08/29/2010 [facility], KVNG R 401.9 HYPERTENSION, UNSPECIFIED ESSENTIAL 08/29/2010 [facility]SC[facility], KVNG R 786.50 Chest Pain 08/29/2010 MUNA SAUNDERS, NATHALIE 401.9 HYPERTENSION, UNSPECIFIED ESSENTIAL 08/29/2010 MUNA SAUNDERS, NATHALIE 786.50 Chest Pain 08/29/2010 [facility], KVNG R 401.9 HYPERTENSION, UNSPECIFIED ESSENTIAL 08/29/2010 [facility]SCS, KVNG R 786.50 Chest Pain 08/29/2010 REZA ZAPATA, EDUARDO S 401.9 HYPERTENSION, UNSPECIFIED ESSENTIAL 08/29/2010 COBB JR, EDUARDO S 786.50 Chest Pain 08/29/2010 [facility], KVNG R 401.9 HYPERTENSION, UNSPECIFIED ESSENTIAL 08/29/2010 [facility], KVNG R 786.50 Chest Pain 08/29/2010 [facility]SC[facility], KVNG R 401.9 HYPERTENSION, UNSPECIFIED ESSENTIAL 08/29/2010 [facility]SCS, KVNG R 786.50 Chest Pain 08/29/2010 FRANKY DAY, LETTY S 401.9 HYPERTENSION, UNSPECIFIED ESSENTIAL 08/29/2010 FRANKY ORGAN PIPE VOICER, LETTY S 786.50 Chest Pain 08/29/2010 MUNA SAUNDERS, NATHALIE 401.9 HYPERTENSION, UNSPECIFIED ESSENTIAL 08/29/2010 MUNA SAUNDERS, NATHALIE 786.50 Chest Pain 08/29/2010 [facility], KVNG R 401.9 HYPERTENSION, UNSPECIFIED ESSENTIAL 08/29/2010 [facility] LSCS, KNVG R 786.50 Chest Pain 08/29/2010 MUNA SAUNDERS, [...] LSCS, KVNG R 786.50 Chest Pain 08/29/2010 ROBERT PIÑA APRN 401.9 HYPERTENSION, UNSPECIFIED ESSENTIAL 08/29/2010 WANG ORGAN PIPE VOICER, ROBERT 786.50 Chest Pain 08/29/2010 WANG ORGAN PIPE VOICER, ROBERT 401.9 HYPERTENSION, UNSPECIFIED ESSENTIAL 08/29/2010 WANG ORGAN PIPE VOICER, ROBERT 786.50 Chest Pain 08/29/2010 FRANKY ORGAN PIPE VOICER, LETTY S 401.9 HYPERTENSION, UNSPECIFIED ESSENTIAL 08/29/2010 FRANKY ORGAN PIPE VOICER, LETTY S 786.50 [facility] 401.9 HYPERTENSION, UNSPECIFIED ESSENTIAL 08/29/2010 [facility]SCS, KVNG R 786.50 Chest Pain 08/29/2010 [facility] LSCS, KVNG R 401.9 HYPERTENSION, UNSPECIFIED ESSENTIAL 08/29/2010 [facility] 786.50 Chest Pain 08/29/2010 WANG ORGAN PIPE VOICER, ROBERT 401.9 HYPERTENSION, UNSPECIFIED ESSENTIAL 08/29/2010 WANG ORGAN PIPE VOICER, ROBERT 786.50 [facility] 08/29/2010 [facility] 401.9 HYPERTENSION, UNSPECIFIED ESSENTIAL 08/29/2010 [facility] 786.50 Chest Pain 08/29/2010 FRANKY ORGAN PIPE VOICER, LETTY S 401.9 HYPERTENSION, UNSPECIFIED ESSENTIAL 08/29/2010 FRANKY ORGAN PIPE VOICER, LETTY S 786.50 Chest Pain 08/29/2010 [facility] 401.9 HYPERTENSION, UNSPECIFIED ESSENTIAL 08/29/2010 [facility] 786.50 Chest [facility] 08/29/2010 [facility] 401.9 HYPERTENSION, UNSPECIFIED ESSENTIAL 08/29/2010 [facility], KV[facility] R 786.50 Chest Pain 08/29/2010 [facility] 401.9 HYPERTENSION, UNSPECIFIED ESSENTIAL 08/29/2010 [facility] 786.50 Chest Pain 08/29/2010 MUOGHALU [...] 08/30/2010 Ot 786.59 CHEST PAIN NEC 10/31/2010 WILLARD GOEL DDS 780.2 Syncope And Collapse 10/31/2010 [facility], KVNG R 780.2 Syncope And Collapse 10/31/2010 780.2 Syncope And Collapse 10/31/2010 780.2 Syncope And Collapse 10/31/2010 [facility], KVNG R 780.2 Syncope And Collapse 10/31/2010 780.2 Syncope And Collapse 10/31/2010 780.2 Syncope And Collapse 10/31/2010 780.2 Syncope And Collapse 10/31/2010 780.2 Syncope And Collapse 10/31/2010 780.2 Syncope And Collapse 10/31/2010 780.2 Syncope And Collapse 10/31/2010 780.2 Syncope And Collapse 10/31/2010 780.2 Syncope And Collapse 10/31/2010 780.2 Syncope And Collapse 10/31/2010 [facility], KVNG R 780.2 Syncope And Collapse 10/31/2010 [facility] 780.2 Syncope And Collapse 10/31/2010 [facility], KVNG R 780.2 Syncope And Collapse 10/31/2010 NATHALIE TORO MD 780.2 Syncope And Collapse 10/31/2010 [facility], KVNG R 780.2 Syncope And Collapse 10/31/2010 EDUARDO COBB JR 780.2 Syncope And Collapse 10/31/2010 [facility] 780.2 Syncope And Collapse 10/31/2010 [facility], KVNG R 780.2 Syncope And Collapse 10/31/2010 LETTY WILKINS APRN 780.2 Syncope And Collapse 10/31/2010 NATHALIE TORO MD 780.2 Syncope And Collapse 10/31/2010 [facility], KVNG R 780.2 Syncope And Collapse 10/31/2010 NATHALIE TORO MD 780.2 Syncope And Collapse 10/31/2010 [facility], KVNG R 780.2 Syncope And Collapse 10/31/2010 [facility], KVNG R 780.2 Syncope And Collapse 10/31/2010 [facility], KVNG R 780.2 Syncope And Collapse 10/31/2010 WANG ORGAN PIPE VOICER, ROBERT 780.2 Syncope And Collapse 10/31/2010 WANG ORGAN PIPE VOICER, ROBERT 780.2 Syncope And Collapse 10/31/2010 FRANKY ORGAN PIPE VOICER, LETTY S 780.2 Syncope And Collapse 10/31/2010 [facility], KVNG R 780.2 Syncope And Collapse 10/31/2010 [facility], KVNG R 780.2 Syncope And Collapse 10/31/2010 WANG ORGAN PIPE VOICER, ROBERT 780.2 Syncope And Collapse 10/31/2010 [facility], KVNG R 780.2 Syncope And Collapse 10/31/2010 FRANKY ORGAN PIPE VOICER, LETTY S 780.2 Syncope And Collapse 10/31/2010 [facility], KVNG R 780.2 Syncope And Collapse 10/31/2010 [facility] 780.2 Syncope And Collapse [facility]/31/[facility] 780.2 Syncope And Collapse 10/31/2010 MUOGHAL[facility] DDS, WILLARD N 780.2 Syncope And Collapse 01/10/2011 MUOGHALU DDS, WILLARD N 305.1 Nicotine Dependence 01/10/2011 [facility]OG[facility] DDS, WILLARD N 380.10 Otitis Externa 01/10/2011 MUOGHALU DDS, WILLARD N 382.9 Otitis Media 01/10/2011 [facility], KVNG R 305.1 Nicotine Dependence 01/10/2011 [facility], KVNG R 380.10 Otitis Externa 01/10/2011 [facility], KVNG R 382.9 Otitis Media 01/10/2011 305.1 Nicotine Dependence 01/10/2011 380.10 Otitis Externa 01/10/2011 382.9 Otitis Media 01/10/2011 305.1 Nicotine Dependence 01/10/2011 380.10 Otitis Externa 01/10/2011 382.9 Otitis Media 01/10/2011 [facility], KVNG R 305.1 Nicotine Dependence 01/10/2011 [facility], KVNG R 380.10 Otitis Externa 01/10/2011 [facility], KVNG R 382.9 Otitis Media [...] Externa 01/10/2011 382.9 Otitis Media 01/10/2011 [facility] [place], KVNG R 305.1 Nicotine Dependence 01/10/2011 [facility], KVNG R 380.10 Otitis Externa 01/10/2011 [facility], KVNG R 382.9 Otitis Media 01/10/2011 [facility], KVNG R 305.1 Nicotine Dependence 01/10/2011 [facility], KVNG R 380.10 Otitis Externa 01/10/2011 [facility], KVNG R 382.9 Otitis Media 01/10/2011 [facility], KV[facility] R 305.1 Nicotine Dependence 01/10/2011 [facility], KVNG R 380.10 Otitis Externa 01/10/2011 [facility], KVNG R 382.9 Otitis Media 01/10/2011 NATHALIE TORO MD 305.1 Nicotine Dependence 01/10/2011 NATHALIE TORO MD 380.10 Otitis Externa 01/10/2011 NATHALIE TORO MD 382.9 Otitis Media 01/10/2011 [facility] [place], KVNG R 305.1 Nicotine Dependence 01/10/2011 [facility], KV[facility] R 380.10 [facility]a [facility]/10[facility] 382.9 Otitis Media 01/10/2011 EDUARDO COBB JR S 305.1 Nicotine Dependence 01/10/2011 REZA ZAPATA, EDUARDO S 380.10 Otitis Externa 01/10/2011 EDUARDO COBB JR S 382.9 Otitis Media 01/10/2011 [facility], KV[facility] R 305.1 Nicotine Dependence 01/10/[facility] 380.10 Otitis Externa 01/10/2011 [facility], [facility] R 382.9 Otitis Media 01/10/2011 [facility], KVNG R 305.1 Nicotine Dependence 01/10/2011 [facility], KVNG R 380.10 Otitis Externa 01/10/2011 [facility], KVNG R 382.9 Otitis Media 01/10/2011 FRANKY DAY, LETTY S 305.1 Nicotine Dependence 01/10/2011 [employer] [employer], LETTY S 380.10 Otitis Externa 01/10/2011 FRANKY DAY, LETTY S 382.9 Otitis Media 01/10/2011 NATHALIE TORO MD 305.1 Nicotine Dependence 01/10/2011 NATHALIE TORO MD 380.10 Otitis Externa 01/10/2011 NATHALIE TORO MD 382.9 Otitis Media 01/10/2011 [facility], KVNG R 305.1 Nicotine Dependence 01/10/2011 [facility], KVNG R 380.10 Otitis Externa 01/10/2011 [facility], KVNG R 382.9 Otitis Media 01/10/2011 NATHALIE TORO MD 305.1 Nicotine Dependence 01/10/2011 NATHALIE TORO MD 380.10 Otitis Externa 01/10/2011 NATHALIE TORO MD 382.9 Otitis Media 01/10/2011 [facility], KVNG R 305.1 Nicotine Dependence 01/10/2011 [facility], KVNG R 380.10 Otitis Externa 01/10/2011 [facility], KVNG R 382.9 Otitis Media 01/10/2011 [facility], KVNG R 305.1 Nicotine Dependence 01/10/2011 [facility], KVNG R 380.10 Otitis Externa 01/10/2011 [facility] [facility], KVNG R 382.9 Otitis Media 01/10/2011 [facility], KVNG R 305.1 Nicotine Dependence 01/10/2011 [facility], KVNG R 380.10 Otitis Externa 01/10/2011 [facility], KVNG R 382.9 Otitis Media 01/10/2011 [employer], ROBERT 305.1 Nicotine Dependence 01/10/2011 [employer], ROBERT 380.10 Otitis Externa 01/10/2011 [employer], ROBERT 382.9 Otitis Media 01/10/2011 [employer], ROBERT 305.1 Nicotine Dependence 01/10/2011 [employer], ROBERT 380.10 Otitis Externa 01/10/2011 [employer], ROBERT 382.9 Otitis Media 01/10/2011 FR[employer]Y [employer], LETTY S 305.1 Nicotine Dependence 01/10/2011 [employer], LETTY S 380.10 Otitis Externa 01/10/2011 [employer], LETTY S 382.9 Otitis Media 01/10/2011 [facility], KVNG R 305.1 Nicotine Dependence 01/10/2011 [facility], KVNG R 380.10 Otitis Externa 01/10/2011 [facility], KVNG R 382.9 Otitis Media 01/10/2011 [facility], KVNG R 305.1 Nicotine Dependence 01/10/2011 [facility], KVNG R 380.10 Otitis Externa 01/10/2011 [facility], KVNG R 382.9 Otitis Media 01/10/2011 [employer], ROBERT 305.1 Nicotine Dependence 01/10/2011 [employer] VO[employer]ER, ROBERT 380.10 Otitis Externa 01/10/2011 [employer] VO[employer]ER, ROBERT 382.9 Otitis Media 01/10/2011 [facility], KVNG R 305.1 Nicotine Dependence 01/10/2011 [facility], KVNG R 380.10 Otitis Externa 01/10/2011 [facility], KVNG R 382.9 Otitis Media 01/10/2011 [employer], LETTY S 305.1 Nicotine Dependence 01/10/2011 [employer]ER, LETTY S 380.10 Otitis Externa 01/10/2011 [employer] VO[employer]ER, LETTY S 382.9 Otitis Media 01/10/2011 [facility], KVNG [...] The Teeth And Supporting Structures 04/19/2011 [facility] [place] 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 04/19/2011 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 04/19/2011 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 04/19/2011 [facility] KVNG AMBROSE R 525.9 Unspecified Disorder Of The Teeth [...] The Teeth And Supporting Structures 04/19/2011 [facility] KVNG AMBROSE R 525.9 Unspecified Disorder Of The Teeth [...] And Supporting Structures 04/19/2011 LETTY WILKINS APRN 525.9 Unspecified Disorder Of The Teeth And [...] Teeth And Supporting Structures 04/19/2011 [facility], KNVG R 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 04/19/2011 [facility], KVNG R 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 04/19/2011 [employer] VO[employer]ER, ROBERT 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 04/19/2011 W[employer] VOICER, ROBERT 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 04/19/2011 LETTY WILKINS APRN S 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 04/19/2011 [facility], KVNG R 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 04/19/2011 [facility], KVNG R 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 04/19/2011 W[employer] VOICER, ROBERT 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 04/19/2011 [facility], KVNG R 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 04/19/2011 LETTY WILKINS APRN 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 04/19/2011 [facility], KVNG R 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 04/19/2011 [facility], KVNG R 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 04/19/2011 [facility], KVNG R 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 04/19/2011 MUOGHALU DDS, WILLARD N 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 06/17/2011 [facility] DDS, IWLLARD N 787.01 NAUSEA WITH VOMITING 06/17/2011 MUOGHALU DDS, WILLARD N V04.81 Flu Dx (3 Yrs And Above, Im) 06/17/2011 [facility], KVNG R 787.01 NAUSEA WITH VOMITING 06/17/2011 [facility], KVNG R V04.81 Flu Dx (3 Yrs And Above, Im) 06/17/2011 787.01 NAUSEA WITH VOMITING 06/17/2011 V04.81 Flu Dx (3 Yrs And Above, Im) 06/17/2011 787.01 NAUSEA WITH VOMITING 06/17/2011 V04.81 Flu Dx (3 Yrs And Above, Im) 06/17/2011 [facility], KVNG R 787.01 NAUSEA WITH VOMITING 06/17/2011 [facility], KVNG R V04.81 Flu Dx [...] Dx (3 Yrs And Above, Im) 06/17/2011 [facility], KVNG R 787.01 NAUSEA WITH VOMITING 06/17/2011 [facility], KVNG R V04.81 Flu Dx (3 Yrs And Above, Im) 06/17/2011 [facility], KVNG R 787.01 NAUSEA WITH VOMITING 06/17/2011 [facility], KVNG R V04.81 Flu Dx (3 Yrs And Above, Im) 06/17/2011 [facility], KVNG R 787.01 NAUSEA WITH VOMITING 06/17/2011 [facility], KVNG R V04.81 Flu Dx (3 Yrs And Above, Im) 06/17/2011 NATHALIE TORO MD 787.01 NAUSEA WITH VOMITING 06/17/2011 NATHALIE TORO MD V04.81 Flu Dx (3 Yrs And Above, Im) 06/17/2011 [facility], KVNG R 787.01 NAUSEA WITH VOMITING 06/17/2011 [facility], KVNG R V04.81 Flu Dx (3 Yrs And Above, Im) 06/17/2011 EDUARDO COBB JR 787.01 NAUSEA WITH VOMITING 06/17/2011 EDUARDO COBB JR V04.81 Flu Dx (3 Yrs And Above, Im) 06/17/2011 [facility], KVNG R 787.01 NAUSEA WITH VOMITING 06/17/2011 [facility], KVNG R V04.81 Flu Dx (3 Yrs And Above, Im) 06/17/2011 [facility], KVNG R 787.01 NAUSEA WITH VOMITING [facility]/17[facility] V04.81 Flu Dx (3 Yrs [...] (3 Yrs And Above, Im) 06/17/2011 [employer] VOICER, ROBERT 787.01 NAUSEA WITH VOMITING 06/17/2011 WANG [employer] P[employer] VOICER, ROBERT V04.81 Flu Dx (3 Yrs And Above, Im) 06/17/2011 WANG [employer] PIPE VOICER, ROBERT 787.01 NAUSEA WITH VOMITING 06/17/2011 WANG [employer] P[employer] VOICER, ROBERT V04.81 Flu Dx (3 Yrs And Above, Im) 06/17/2011 FRANKY [employer] P[employer] VOICER LETTY S 787.01 NAUSEA WITH VOMITING 06/17/2011 FRANKY [employer] PIPE VOICER, LETTY S V04.81 Flu Dx (3 Yrs And Above, Im) 06/17/2011 [facility], KVNG R 787.01 NAUSEA WITH VOMITING 06/17/2011 [facility], KVNG R V04.81 Flu Dx (3 Yrs And Above, Im) 06/17/2011 [facility], KVNG R 787.01 NAUSEA WITH VOMITING 06/17/2011 [facility], KVNG R V04.81 Flu Dx (3 Yrs And Above, Im) 06/17/2011 W[employer] P[employer] VOICER, ROBERT 787.01 NAUSEA WITH VOMITING 06/17/2011 WANG [employer] P[employer] VOICER, ROBERT V04.81 Flu Dx (3 Yrs And Above, Im) 06/17/2011 [facility], KVNG R 787.01 NAUSEA WITH VOMITING 06/17/2011 [facility], KVNG R V04.81 Flu Dx (3 Yrs And Above, Im) 06/17/2011 FRANK[employer] P[employer] VOICER, LETTY S 787.01 NAUSEA WITH VOMITING 06/17/2011 FRANKY [employer] PIPE VOICER, LETTY S V04.81 Flu Dx (3 Yrs And Above, Im) 06/17/2011 [facility], KVNG R 787.01 NAUSEA WITH VOMITING 06/17/2011 [facility], KVNG R V04.81 Flu Dx (3 Yrs And Above, Im) 06/17/2011 [facility] 787.01 NAUSEA WITH VOMITING 06/17/2011 [facility] CS, KVNG R V04.81 Flu Dx (3 Yrs And Above, Im) 06/17/2011 [facility] 787.01 NAUSEA WITH VOMITING 06/17/2011 [facility] V04.81 Flu Dx (3 Yrs And Above, Im) 06/17/2011 MUOGHALU DDS, WILLARD N 787.01 NAUSEA WITH VOMITING 06/17/2011 MUOGHALU DDS, WILLARD N V04.81 Flu Dx (3 Yrs And Above, Im) 06/24/2011 MUOGHALU DDS, WILLARD N 611.72 Breast Lump Or Mass 06/24/2011 [facility] 611.72 Breast Lump Or Mass 06/24/2011 611.72 Breast Lump Or Mass 06/24/2011 611.72 Breast Lump Or Mass 06/24/2011 [facility] 611.72 Breast Lump Or Mass 06/24/2011 611.72 Breast Lump Or Mass 06/24/2011 611.72 Breast Lump Or Mass 06/24/2011 611.72 Breast Lump Or Mass 06/24/2011 611.72 Breast Lump Or Mass 06/24/2011 611.72 Breast Lump Or Mass 06/24/2011 611.72 Breast Lump Or Mass 06/24/2011 611.72 Breast Lump Or Mass 06/24/2011 611.72 Breast Lump Or Mass 06/24/2011 611.72 Breast Lump Or Mass 06/24/2011 [facility], KVNG R 611.72 Breast Lump Or Mass 06/24/2011 [facility], KVNG R 611.72 Breast Lump Or Mass 06/24/2011 [facility], KVNG R 611.72 Breast Lump Or Mass 06/24/2011 NATHALIE TORO MD 611.72 Breast Lump Or Mass 06/24/2011 [facility], KVNG R 611.72 Breast Lump Or Mass 06/24/2011 EDUARDO COBB JR S 611.72 Breast Lump Or Mass 06/24/2011 [facility], KVNG R 611.72 Breast Lump Or Mass 06/24/2011 [facility], KVNG R 611.72 Breast Lump Or Mass 06/24/2011 FRANKY [employer] PIPE VOICER, LETTY S 611.72 Breast Lump Or Mass 06/24/2011 NATHALIE TORO MD 611.72 Breast Lump Or Mass 06/24/2011 [facility], KVNG R 611.72 Breast Lump Or Mass 06/24/2011 NATHALIE TORO MD 611.72 Breast Lump Or Mass 06/24/2011 [facility], KVNG R 611.72 Breast Lump Or Mass 06/24/2011 [facility], KVNG R 611.72 Breast Lump Or Mass 06/24/2011 [facility], KVNG R 611.72 Breast Lump Or Mass 06/24/2011 W[employer] P[employer] VOICER, ROBERT 611.72 Breast Lump Or Mass 06/24/2011 WANG [employer] P[employer] VOICER, ROBERT 611.72 Breast Lump Or Mass 06/24/2011 FRANKY [employer] P[employer] VOICER, LETTY S 611.72 Breast Lump Or Mass 06/24/2011 [facility], KVNG R 611.72 Breast Lump Or Mass 06/24/2011 [facility], KVNG R 611.72 Breast Lump Or Mass 06/24/2011 WANG [employer] P[employer] VOICER, ROBERT 611.72 Breast Lump Or Mass 06/24/2011 [facility], KVNG R 611.72 Breast Lump Or Mass 06/24/2011 LETTY WILKINS APRN 611.72 Breast Lump Or Mass 06/24/2011 [facility] [...] WILLARD N 789.06 Abdominal Pain Epigastric 07/01/2011 [facility], KVNG R 783.21 Weight Loss 07/01/2011 [facility], KVNG R 787.1 Heartburn 07/01/2011 [facility], KVNG R 787.3 Gas/bloating Pain 07/01/2011 [facility], KVNG R 789.00 Abdominal Pain Unspecified Site 07/01/2011 [facility], KVNG R 789.06 Abdominal Pain Epigastric 07/01/2011 783.21 Weight Loss 07/01/2011 787.1 Heartburn 07/01/2011 787.3 Gas/bloating Pain 07/01/2011 789.00 Abdominal Pain Unspecified Site 07/01/2011 789.06 Abdominal Pain Epigastric 07/01/2011 783.21 Weight Loss 07/01/2011 787.1 Heartburn 07/01/2011 787.3 Gas/bloating Pain 07/01/2011 789.00 Abdominal Pain Unspecified Site 07/01/2011 789.06 Abdominal Pain Epigastric 07/01/2011 [facility], KVNG R 783.21 Weight Loss 07/01/2011 [facility] 787.1 Heartburn 07/01/2011 [facility], KVNG R 787.3 Gas/bloating Pain 07/01/2011 [facility], KVNG R 789.00 Abdominal Pain Unspecified Site 07/01/2011 [facility], KVNG R 789.06 Abdominal Pain [...] MD 789.00 Abdominal Pain Unspecified Site 07/01/2011 MUNA SAUNDERS, NATHALIE 789.06 Abdominal Pain Epigastric 07/01/2011 [facility], KVNG R 783.21 Weight Loss 07/01/2011 [facility], KVNG R 787.1 Heartburn 07/01/2011 [facility], KVNG R 787.3 Gas/bloating Pain 07/01/2011 [facility], KVNG R 789.00 Abdominal Pain Unspecified Site 07/01/2011 [facility], KVNG R 789.06 Abdominal Pain Epigastric 07/01/2011 COBB JR, EDUARDO S 783.21 Weight Loss 07/01/2011 REZA ZAPATA EDUARDO S 787.1 Heartburn 07/01/2011 EDUARDO COBB JR S 787.3 Gas/bloating Pain 07/01/2011 REZA ZAPATA EDUAROD S 789.00 Abdominal Pain Unspecified Site 07/01/2011 [...] R 783.21 Weight Loss 07/01/2011 [facility], KVGN R 787.1 Heartburn 07/01/2011 [facility], KVNG R 787.3 Gas/bloating Pain 07/01/2011 [facility], KVNG R 789.00 Abdominal Pain Unspecified Site 07/01/2011 [facility], KVNG R 789.06 Abdominal Pain Epigastric 07/01/2011 FRANKY [employer] PIPE VOICER, LETTY S 783.21 Weight Loss 07/01/2011 FRANKY [employer] PIPE VOICER, LETTY S 787.1 Heartburn 07/01/2011 FRANKY [employer] PIPE VOICER, LETTY S 787.3 Gas/bloating Pain 07/01/2011 FRANKY [employer] PIPE VOICER, LETTY S 789.00 Abdominal Pain Unspecified Site 07/01/2011 FRANKY [employer] PIPE VOICER, LETTY S 789.06 Abdominal Pain Epigastric 07/01/2011 MUNA SAUNDERS, NATHALIE 783.21 Weight Loss 07/01/2011 NATHALIE TORO MD [...] R 789.06 Abdominal Pain Epigastric 07/01/2011 NATHALIE TROO MD 783.21 Weight Loss 07/01/2011 NATHALIE TORO [...] R 789.06 Abdominal Pain Epigastric 07/01/2011 WANG [employer] PIPE VOICER, ROBERT 783.21 Weight Loss 07/01/2011 WANG [employer]GAN PIPE VOICER, ROBERT 787.1 Heartburn 07/01/2011 WANG [employer]GAN PIPE VOICER, ROBERT 787.3 Gas/bloating Pain 07/01/2011 WANG [employer]GAN PIPE VOICER, ROBERT 789.00 Abdominal Pain Unspecified Site 07/01/2011 WANG [employer]GAN PIPE VOICER, ROBERT 789.06 Abdominal Pain Epigastric 07/01/2011 WANG [employer]GAN PIPE VOICER, ROBERT 783.21 Weight Loss 07/01/2011 WANG [employer] PIPE VOICER, ROBERT 787.1 Heartburn 07/01/2011 WANG [employer] PIPE VOICER, ROBERT 787.3 Gas/bloating Pain 07/01/2011 WANG [employer]GAN PIPE VOICER, ROBERT 789.00 Abdominal Pain Unspecified Site 07/01/2011 WANG [employer]GAN PIPE VOICER, ROBERT 789.06 Abdominal Pain Epigastric 07/01/2011 FRANKY [employer] PIPE VOICER, LETTY S 783.21 Weight Loss 07/01/2011 FRANKY [employer] PIPE VOICER, LETTY S 787.1 Heartburn 07/01/2011 FRANKY [employer] PIPE VOICER, LETTY S 787.3 Gas/bloating Pain 07/01/2011 FRANKY [employer] PIPE VOICER, LETTY S 789.00 Abdominal Pain Unspecified Site 07/01/2011 FRANKY [employer]GAN PIPE VOICER, LETTY S 789.06 Abdominal Pain Epigastric 07/01/2011 [...] LSCS, KVNG R 787.3 Gas/bloating Pain 07/01/2011 [facility], KVNG R 789.00 Abdominal Pain Unspecified Site 07/01/2011 [facility], KVNG R 789.06 Abdominal Pain Epigastric 07/01/2011 WANG [employer]GAN PIPE VOICER, ROBERT 783.21 Weight Loss 07/01/2011 WANG ORGAN PIPE VOICER, ROBERT 787.1 Heartburn 07/01/2011 WANG ORGAN PIPE VOICER, ORBERT 787.3 Gas/bloating Pain 07/01/2011 WANG [employer]GAN PIPE VOICER, ROBERT 789.00 Abdominal Pain Unspecified Site 07/01/2011 WANG [employer]GAN PIPE VOICER, ROBERT 789.06 Abdominal Pain Epigastric 07/01/2011 [facility], KVNG R 783.21 Weight Loss 07/01/2011 [facility], KVNG R 787.1 Heartburn 07/01/2011 [facility], KVNG R 787.3 Gas/bloating Pain 07/01/2011 [facility], KVNG R 789.00 Abdominal Pain Unspecified Site 07/01/2011 [facility], KVNG R 789.06 Abdominal Pain Epigastric 07/01/2011 FRANKY [employer] PIPE VOICER, LETTY S 783.21 Weight Loss 07/01/2011 FRANKY ORGAN PIPE VOICER, LETTY S 787.1 Heartburn 07/01/2011 FRANKY [employer] PIPE VOICER, LETTY S 787.3 Gas/bloating Pain 07/01/2011 FRANKY [employer]GAN PIPE VOICER, LETTY S 789.00 Abdominal Pain Unspecified Site 07/01/2011 FRANKY [employer]GAN PIPE VOICER, LETTY S 789.06 Abdominal Pain Epigastric 07/01/2011 [...] 789.04 Abdominal Pain Left Lower Quadrant 07/08/2011 [facility], KVNG R 562.11 Diverticulitis Of Colon (without Hemorrhage) 07/08/2011 [facility], KVNG R 789.02 Abdominal Pain Left Upper Quadrant 07/08/2011 [facility], KVNG R 789.04 Abdominal Pain [...] TORO MD 562.11 Diverticulitis Of Colon (without Hemorrhage) 07/08/2011 NATHALIE TORO MD 789.02 Abdominal Pain [...] Abdominal Pain Left Lower Quadrant 07/08/2011 FRANKY [employer] PIPE VOICER, LETTY S 562.11 Diverticulitis Of Colon (without Hemorrhage) 07/08/2011 FRANKY [employer] PIPE VOICER, LETTY S 789.02 Abdominal Pain Left Upper Quadrant 07/08/2011 FRANKY [employer] PIPE VOICER, LETTY S 789.04 Abdominal Pain Left Lower Quadrant 07/08/2011 NATHALIE TORO MD 562.11 Diverticulitis Of Colon (without Hemorrhage) 07/08/2011 NATHALIE TORO MD 789.02 Abdominal Pain Left Upper Quadrant 07/08/2011 NATHALIE TORO MD 789.04 Abdominal Pain Left Lower Quadrant 07/08/2011 [facility], KVNG R 562.11 Diverticulitis Of Colon (without Hemorrhage) 07/08/2011 [facility], KVNG R 789.02 Abdominal Pain Left Upper Quadrant 07/08/2011 [facility], KVNG R 789.04 Abdominal Pain Left Lower Quadrant 07/08/2011 NATHALIE TORO MD 562.11 Diverticulitis Of Colon (without Hemorrhage) 07/08/2011 NATHALIE TORO MD9.02 Abdominal Pain Left Upper Quadrant 07/08/2011 NATHALIE [...] Abdominal Pain Left Lower Quadrant 07/08/2011 WANG [employer] PIPE VOICER, ROBERT 562.11 Diverticulitis Of Colon (without Hemorrhage) 07/08/2011 WANG [employer] PIPE VOICER, ROBERT 789.02 Abdominal Pain Left Upper Quadrant 07/08/2011 WANG [employer] PIPE VOICER, ROBERT 789.04 Abdominal Pain Left Lower Quadrant 07/08/2011 WANG [employer] PIPE VOICER, ROBERT 562.11 Diverticulitis Of Colon (without Hemorrhage) 07/08/2011 WANG [employer] PIPE VOICER, ROBERT 789.02 Abdominal Pain Left Upper Quadrant 07/08/2011 WANG [employer] PIPE VOICER, ROBERT 789.04 Abdominal Pain Left Lower Quadrant 07/08/2011 FRANKY [employer] PIPE VOICER, LETTY S 562.11 Diverticulitis Of Colon (without Hemorrhage) 07/08/2011 FRANKY OR[employer] PIPE VOICER, LETTY S 789.02 Abdominal Pain Left Upper Quadrant 07/08/2011 FRANKY ORGAN PIPE VOICER, LETTY S 789.04 Abdominal Pain Left Lower [...] Abdominal Pain Left Lower Quadrant 07/08/2011 WANG [employer] PIPE VOICER, ROBERT 562.11 Diverticulitis Of Colon (without Hemorrhage) 07/08/2011 WANG [employer] PIPE VOICER, ROBERT 789.02 Abdominal Pain Left Upper Quadrant 07/08/2011 WANG [employer]GAN PIPE VOICER, ROBERT 789.04 Abdominal Pain Left Lower Quadrant 07/08/2011 [facility], KVNG R 562.11 Diverticulitis Of Colon (without Hemorrhage) 07/08/2011 [facility], KVNG R 789.02 Abdominal Pain Left Upper Quadrant 07/08/2011 [facility], KVNG R 789.04 Abdominal Pain Left Lower Quadrant 07/08/2011 LETTY WILKINS APRN S 562.11 Diverticulitis Of Colon (without Hemorrhage) 07/08/2011 LETTY WILKINS APRN S 789.02 Abdominal Pain Left Upper Quadrant 07/08/2011 LETTY WILKINS APRN S 789.04 Abdominal Pain Left Lower Quadrant 07/08/2011 [facility] 562.11 Diverticulitis Of Colon (without [...] 789.04 Abdominal Pain Left Lower Quadrant 07/08/2011 [facility] 562.11 Diverticulitis Of Colon (without Hemorrhage) 07/08/2011 [facility] 789.02 Abdominal Pain Left Upper Quadrant 07/08/2011 [facility] 789.04 Abdominal Pain Left Lower Quadrant 07/08/2011 MUOGHALU DDS, WILLARD N 562.11 Diverticulitis Of Colon (without Hemorrhage) 07/08/2011 MUOGHALU DDS, WILLARD N 789.02 Abdominal Pain Left Upper Quadrant 07/08/2011 MUOGHAL[facility] DDS, WILLARD N 789.04 Abdominal Pain Left Lower Quadrant 07/11/2011 MUOGHALU DDS, WILLARD N 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 07/11/2011 [facility] 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 07/11/2011 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 07/11/2011 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 07/11/2011 [facility], KVGN R 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 07/11/2011 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 07/11/2011 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 07/11/2011 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 07/11/2011 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 07/11/2011 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 07/11/2011 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 07/11/2011 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 07/11/2011 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 07/11/2011 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 07/11/2011 [facility], KVNG R 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 07/11/2011 [facility], KVNG R 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 07/11/2011 [facility], KVNG R 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 07/11/2011 NATHALIE TORO MD 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 07/11/2011 [facility], KVNG R 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 07/11/2011 EDUARDO COBB JR 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 07/11/2011 [facility], KVNG R 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 07/11/2011 [facility], KVNG R 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 07/11/2011 FRANKY DAY, LETTY S 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 07/11/2011 NATHALIE TORO MD 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 07/11/2011 [facility], KVNG R 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 07/11/2011 NATHALIE TORO MD 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 07/11/2011 [facility], KVNG R 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 07/11/2011 [facility], KVNG R 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 07/11/2011 [facility], KVNG R 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 07/11/2011 WANG [employer]GAN PIPE VOICER, ROBERT 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 07/11/2011 WANG [employer]GAN PIPE VOICER, ROBERT 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 07/11/2011 FRANKY ORGAN PIPE VOICER, LETTY S 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 07/11/2011 [facility], KVNG R 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 07/11/2011 [facility], KVNG R 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 07/11/2011 WANG ORGAN PIPE VOICER, ROBERT 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 07/11/2011 [facility], KVNG R 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 07/11/2011 FRANKY ORGAN PIPE VOICER, LETTY S 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 07/11/2011 [facility], KVNG R 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 07/11/2011 [facility], KVNG R 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 07/11/2011 [facility], KVNG R 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 07/11/2011 MUOGHALU DDS, WILLARD N 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 07/22/2011 MUOGHALU DDS, WILLARD N 536.8 DYSPEPSIA 07/22/2011 MUOGHALU DDS, WILLARD N 787.91 Diarrhea 07/22/2011 [facility], KVNG R 536.8 DYSPEPSIA 07/22/2011 [facility], KVNG R 787.91 Diarrhea 07/22/2011 536.8 DYSPEPSIA 07/22/2011 787.91 Diarrhea 07/22/2011 536.8 DYSPEPSIA 07/22/2011 787.91 Diarrhea 07/22/2011 [facility], KVNG R 536.8 DYSPEPSIA 07/22/2011 [facility], KVNG R 787.91 Diarrhea 07/22/2011 536.8 DYSPEPSIA 07/22/2011 787.91 Diarrhea 07/22/2011 536.8 DYSPEPSIA 07/22/2011 787.91 Diarrhea 07/22/2011 536.8 DYSPEPSIA 07/22/2011 787.91 Diarrhea 07/22/2011 536.8 DYSPEPSIA 07/22/2011 787.91 Diarrhea 07/22/2011 536.8 DYSPEPSIA 07/22/2011 787.91 Diarrhea 07/22/2011 536.8 DYSPEPSIA 07/22/2011 787.91 Diarrhea 07/22/2011 536.8 DYSPEPSIA 07/22/2011 787.91 Diarrhea 07/22/2011 536.8 DYSPEPSIA 07/22/2011 787.91 Diarrhea 07/22/2011 536.8 DYSPEPSIA 07/22/2011 787.91 Diarrhea 07/22/2011 [facility], KVNG R 536.8 DYSPEPSIA 07/22/2011 [facility], KVNG R 787.91 Diarrhea 07/22/2011 [facility], KVNG R 536.8 DYSPEPSIA 07/22/2011 [facility], KVNG R 787.91 Diarrhea 07/22/2011 [facility], KVNG R 536.8 DYSPEPSIA 07/22/2011 [facility] R 787.91 Diarrhea 07/22/2011 NATHALIE TORO MD 536.8 DYSPEPSIA 07/22/2011 MUNA SAUNDERS, NATHALIE 787.91 Diarrhea 07/22/2011 [facility] R 536.8 DYSPEPSIA 07/22/2011 [facility], KV[facility] R 787.91 Diarrhea 07/22/2011 EDUARDO COBB JR S 536.8 DYSPEPSIA 07/22/2011 EDUARDO COBB JR S 787.91 Diarrhea 07/22/2011 [facility], KVNG R 536.8 DYSPEPSIA 07/22/2011 [facility], KVNG R 787.91 Diarrhea 07/22/2011 [facility], KVNG R 536.8 DYSPEPSIA 07/22/2011 [facility], KVNG R 787.91 Diarrhea 07/22/2011 [employer], LETTY S 536.8 DYSPEPSIA 07/22/2011 [employer], LETTY S 787.91 Diarrhea 07/22/2011 NATHALIE TORO MD 536.8 DYSPEPSIA 07/22/2011 NATHALIE TORO MD7.91 Diarrhea 07/22/2011 [facility], KVNG R 536.8 DYSPEPSIA 07/22/2011 [facility] 787.91 Diarrhea 07/22/2011 NATHALIE TORO MD 536.8 DYSPEPSIA 07/22/2011 NATHALIE TORO MD7.91 Diarrhea 07/22/2011 [facility], KVNG R 536.8 DYSPEPSIA 07/22/2011 [facility], KV[facility] R 787.91 Diarrhea 07/22/2011 [facility], KVNG R 536.8 DYSPEPSIA 07/22/2011 [facility], KVNG R 787.91 Diarrhea 07/22/2011 [facility], KVNG R 536.8 DYSPEPSIA 07/22/2011 [facility], KVNG R 787.91 Diarrhea 07/22/2011 [employer], ROBERT 536.8 DYSPEPSIA 07/22/2011 [employer], ROBERT 787.91 Diarrhea 07/22/2011 [employer], ROBERT 536.8 DYSPEPSIA 07/22/2011 [employer], ROBERT 787.91 Diarrhea 07/22/2011 [employer], LETTY S 536.8 DYSPEPSIA 07/22/2011 [employer], LETTY S 787.91 Diarrhea 07/22/2011 [facility], KVNG R 536.8 DYSPEPSIA 07/22/2011 [facility], KVNG R 787.91 Diarrhea 07/22/2011 [facility], KVNG R 536.8 DYSPEPSIA 07/22/2011 [facility], KVNG R 787.91 Diarrhea 07/22/2011 [employer], ROBERT 536.8 DYSPEPSIA 07/22/2011 [employer], ROBERT 787.91 Diarrhea 07/22/2011 [facility], KVNG R 536.8 DYSPEPSIA 07/22/2011 [facility], KVNG R 787.91 Diarrhea 07/22/2011 [employer], LETTY S 536.8 DYSPEPSIA 07/22/2011 [employer], LETTY S 787.91 Diarrhea 07/22/2011 [facility], KVNG R 536.8 DYSPEPSIA 07/22/2011 [facility], KVNG R 787.91 Diarrhea 07/22/2011 [facility], KVNG R 536.8 DYSPEPSIA 07/22/2011 [facility], KVNG R 787.91 Diarrhea 07/22/2011 [facility], KVNG R 536.8 DYSPEPSIA 07/22/2011 [facility], KV[facility] R 787.91 Diarrhea 07/22/2011 [facility], WILLARD N 536.8 DYSPEPSIA 07/22/2011 [facility], WILLARD N 787.91 Diarrhea 09/23/2011 [facility], WILLARD N 530.81 GERD 09/23/2011 [facility], WILLARD N 535.50 GASTRITIS UNSPEC 09/23/2011 [facility], WILLARD N 562.00 DIVERTICULOSIS 09/23/2011 [facility], WILLARD N 787.20 DYSPHAGIA, UNSPECIFIED 09/23/2011 [facility], KVNG R 530.81 GERD 09/23/2011 [facility], KVNG R 535.50 GASTRITIS UNSPEC 09/23/2011 [facility], KVNG R 562.00 DIVERTICULOSIS 09/23/2011 [facility], KVNG R 787.20 DYSPHAGIA, UNSPECIFIED 09/23/2011 530.81 GERD 09/23/2011 535.50 GASTRITIS UNSPEC 09/23/2011 562.00 DIVERTICULOSIS 09/23/2011 787.20 DYSPHAGIA, UNSPECIFIED 09/23/2011 530.81 GERD 09/23/2011 535.50 GASTRITIS UNSPEC 09/23/2011 562.00 DIVERTICULOSIS 09/23/2011 787.20 DYSPHAGIA, UNSPECIFIED 09/23/2011 [facility], KVNG R 530.81 GERD 09/23/2011 [facility], KVNG R 535.50 GASTRITIS UNSPEC 09/23/2011 [facility], KVNG R 562.00 DIVERTICULOSIS 09/23/2011 [facility], KVNG R 787.20 DYSPHAGIA, UNSPECIFIED [...] [facility], KVNG R 530.81 GERD 09/23/2011 [facility], KV[facility] R 535.50 GASTRITIS UNSPEC 09/23/2011 [facility], KVNG R 562.00 DIVERTICULOSIS 09/23/2011 [facility], KVNG R 787.20 DYSPHAGIA, UNSPECIFIED 09/23/2011 [facility], KVNG R 530.81 GERD 09/23/2011 [facility], KVNG R 535.50 GASTRITIS UNSPEC 09/23/2011 [facility], KVNG R 562.00 DIVERTICULOSIS 09/23/2011 [facility], KVNG R 787.20 DYSPHAGIA, UNSPECIFIED 09/23/2011 [facility], KVNG R 530.81 GERD 09/23/2011 [facility], KVNG R 535.50 GASTRITIS UNSPEC 09/23/2011 [facility], KVNG R 562.00 DIVERTICULOSIS 09/23/2011 [facility], KVNG R 787.20 DYSPHAGIA, UNSPECIFIED 09/23/2011 MUNA SAUNDERS, NATHALIE 530.81 GERD 09/23/2011 MUNA SAUNDERS, NATHALIE 535.50 GASTRITIS UNSPEC 09/23/2011 NATHALIE TORO MD 562.00 DIVERTICULOSIS 09/23/2011 MUNA SAUNDERS, NATHALIE 787.20 DYSPHAGIA, UNSPECIFIED 09/23/2011 [facility], KVNG R 530.81 GERD 09/23/2011 [facility], KVNG R 535.50 GASTRITIS UNSPEC 09/23/2011 [facility], KVNG R 562.00 DIVERTICULOSIS 09/23/2011 [facility], KVNG R 787.20 DYSPHAGIA, UNSPECIFIED 09/23/2011 EDUARDO COBB JR 530.81 GERD 09/23/2011 EDUARDO COBB JR 535.50 GASTRITIS UNSPEC 09/23/2011 COBB JR, EDUARDO S 562.00 DIVERTICULOSIS 09/23/2011 REZA ZAPATA, EDUARDO S 787.20 DYSPHAGIA, UNSPECIFIED 09/23/2011 [facility], [...] KVNG R 787.20 DYSPHAGIA, UNSPECIFIED 09/23/2011 [employer], LETTY S 530.81 GERD 09/23/2011 [employer], LETTY S 535.50 GASTRITIS UNSPEC 09/23/2011 [employer], LETTY S 562.00 DIVERTICULOSIS 09/23/2011 [employer], LETTY S 787.20 DYSPHAGIA, UNSPECIFIED 09/23/2011 MUNA SAUNDERS, NATHALIE 530.81 GERD 09/23/2011 MUAN SAUNDERS, NATHALIE 535.50 GASTRITIS UNSPEC 09/23/2011 MUNA SAUNDERS, NATHALIE 562.00 DIVERTICULOSIS 09/23/2011 MUNA SAUNDERS, NATHALIE 787.20 DYSPHAGIA, UNSPECIFIED 09/23/2011 [facility], KVNG R 530.81 GERD 09/23/2011 [facility], KVNG R 535.50 GASTRITIS UNSPEC 09/23/2011 [facility], KVNG R 562.00 DIVERTICULOSIS 09/23/2011 [facility], KVNG R 787.20 DYSPHAGIA, UNSPECIFIED 09/23/2011 MUNA SAUNDERS, NATHALIE 530.81 GERD 09/23/2011 MUNA SAUNDERS, NATHALIE 535.50 GASTRITIS UNSPEC 09/23/2011 MUNA SAUNDERS, NATHALIE 562.00 DIVERTICULOSIS 09/23/2011 MUNA SAUNDERS, NATHALIE 787.20 DYSPHAGIA, UNSPECIFIED 09/23/2011 [facility], KVNG R 530.81 GERD 09/23/2011 [facility], KVNG R 535.50 GASTRITIS UNSPEC 09/23/2011 [...] KVNG R 787.20 DYSPHAGIA, UNSPECIFIED 09/23/2011 [employer], ROBERT 530.81 GERD 09/23/2011 [employer], ROBERT 535.50 GASTRITIS UNSPEC 09/23/2011 [employer], ROBERT 562.00 DIVERTICULOSIS 09/23/2011 [employer], ROBERT 787.20 DYSPHAGIA, UNSPECIFIED 09/23/2011 [employer], ROBERT 530.81 GERD 09/23/2011 [employer], ROBERT 535.50 GASTRITIS UNSPEC 09/23/2011 [employer], ROBERT 562.00 DIVERTICULOSIS 09/23/2011 [employer], ROBERT 787.20 DYSPHAGIA, UNSPECIFIED 09/23/2011 [employer], LETTY S 530.81 GERD 09/23/2011 [employer], LETTY S 535.50 GASTRITIS UNSPEC 09/23/2011 [employer], LETTY S 562.00 DIVERTICULOSIS 09/23/2011 [employer], LETTY S 787.20 DYSPHAGIA, UNSPECIFIED 09/23/2011 [facility], KVNG R 530.81 GERD 09/23/2011 [facility], KVNG R 535.50 GASTRITIS UNSPEC 09/23/2011 [facility], KVNG R 562.00 DIVERTICULOSIS 09/23/2011 [facility], KVNG R 787.20 DYSPHAGIA, UNSPECIFIED 09/23/2011 [facility], KVNG R 530.81 GERD 09/23/2011 [facility], KVNG R 535.50 GASTRITIS UNSPEC 09/23/2011 [facility], KVNG R 562.00 DIVERTICULOSIS 09/23/2011 [facility], KVNG R 787.20 DYSPHAGIA, UNSPECIFIED 09/23/2011 [employer], ROBERT 530.81 GERD 09/23/2011 [employer], ROBERT 535.50 GASTRITIS UNSPEC 09/23/2011 [employer], ROBERT 562.00 DIVERTICULOSIS 09/23/2011 [employer], ROBERT 787.20 DYSPHAGIA, UNSPECIFIED 09/23/2011 [facility], KVNG R 530.81 GERD 09/23/2011 [facility], KVNG R 535.50 GASTRITIS UNSPEC 09/23/2011 [facility], KVNG R 562.00 DIVERTICULOSIS 09/23/2011 [facility], KVNG R 787.20 DYSPHAGIA, UNSPECIFIED 09/23/2011 [employer], LETTY S 530.81 GERD 09/23/2011 [employer], LETTY S 535.50 GASTRITIS UNSPEC 09/23/2011 [employer], LETTY S 562.00 DIVERTICULOSIS 09/23/2011 [employer], LETTY S 787.20 DYSPHAGIA, UNSPECIFIED 09/23/2011 [facility] [...] LSCS, KVNG R 535.50 GASTRITIS UNSPEC 09/23/2011 [facility], KVNG R 562.00 DIVERTICULOSIS 09/23/2011 [facility], KVNG R 787.20 DYSPHAGIA, UNSPECIFIED 09/23/2011 [facility] DDS, WILLARD N 530.81 GERD 09/23/2011 [facility] DDS, WILLARD N 535.50 GASTRITIS UNSPEC 09/23/2011 [facility] DDS, WILLARD N 562.00 DIVERTICULOSIS 09/23/2011 [facility] DDS, WILLARD N 787.20 DYSPHAGIA, UNSPECIFIED 12/25/2011 [facility] DDS, WILLARD N 786.50 UNSPECIFIED CHEST PAIN 12/25/2011 [facility], KVNG R 786.50 UNSPECIFIED CHEST PAIN 12/25/2011 786.50 UNSPECIFIED CHEST PAIN 12/25/2011 786.50 UNSPECIFIED CHEST PAIN 12/25/2011 [facility], KVNG R 786.50 UNSPECIFIED CHEST PAIN 12/25/2011 786.50 UNSPECIFIED CHEST PAIN 12/25/2011 786.50 UNSPECIFIED CHEST PAIN 12/25/2011 786.50 UNSPECIFIED CHEST PAIN 12/25/2011 786.50 UNSPECIFIED CHEST PAIN 12/25/2011 786.50 UNSPECIFIED CHEST PAIN 12/25/2011 786.50 UNSPECIFIED CHEST PAIN 12/25/2011 786.50 UNSPECIFIED CHEST PAIN 12/25/2011 786.50 UNSPECIFIED CHEST PAIN 12/25/2011 786.50 UNSPECIFIED CHEST PAIN 12/25/2011 [facility], KVNG R 786.50 UNSPECIFIED CHEST PAIN 12/25/2011 [facility], KVNG R 786.50 UNSPECIFIED CHEST PAIN 12/25/2011 [facility], KVNG R 786.50 UNSPECIFIED CHEST PAIN 12/25/2011 NATHALIE TORO MD 786.50 UNSPECIFIED CHEST PAIN 12/25/2011 [facility], KVNG R 786.50 UNSPECIFIED CHEST PAIN 12/25/2011 EDUARDO COBB JR 786.50 UNSPECIFIED CHEST PAIN 12/25/2011 [facility], KVNG R 786.50 UNSPECIFIED CHEST PAIN 12/25/2011 [facility], KVNG R 786.50 UNSPECIFIED CHEST PAIN 12/25/2011 LETTY WILKINS APRN 786.50 UNSPECIFIED CHEST PAIN 12/25/2011 NATHALIE TORO MD 786.50 UNSPECIFIED CHEST PAIN 12/25/2011 [facility], KVNG R 786.50 UNSPECIFIED CHEST PAIN 12/25/2011 NATHALIE TORO MD 786.50 UNSPECIFIED CHEST PAIN 12/25/2011 [facility], KVNG R 786.50 UNSPECIFIED CHEST PAIN 12/25/2011 [facility], KVNG R 786.50 UNSPECIFIED CHEST PAIN 12/25/2011 [facility] 786.50 UNSPECIFIED CHEST PAIN 12/25/2011 [employer], ROBERT 786.50 UNSPECIFIED CHEST PAIN 12/25/2011 [employer], ROBERT 786.50 UNSPECIFIED CHEST PAIN 12/25/2011 [employer], LETTY S 786.50 UNSPECIFIED CHEST PAIN 12/25/2011 [facility], KVNG R 786.50 UNSPECIFIED CHEST PAIN 12/25/2011 [facility], KV[facility] R 786.50 UNSPECIFIED CHEST PAIN 12/25/2011 [employer], ROBERT 786.50 UNSPECIFIED CHEST PAIN 12/25/2011 [facility], KVNG R 786.50 UNSPECIFIED CHEST PAIN 12/25/2011 [employer], LETTY S 786.50 UNSPECIFIED CHEST PAIN 12/25/2011 [facility], KVNG R 786.50 UNSPECIFIED CHEST PAIN 12/25/2011 [facility], KVNG R 786.50 UNSPECIFIED CHEST PAIN 12/25/2011 [facility], KVNG R 786.50 UNSPECIFIED CHEST PAIN 12/25/2011 [facility] DDS, WILLARD N 786.50 UNSPECIFIED CHEST PAIN 02/06/2012 [facility] DDS, WILLARD N 110.1 DERMATOPHYTOSIS OF NAIL 02/06/2012 [facility] DDS, WILLARD N 780.8 GENERALIZED HYPERHIDROSIS 02/06/2012 [facility] DDS, WILLARD N 782.1 RASH AND OTHER NONSPECIFIC SKIN ERUPTION 02/06/2012 [facility], KVNG R 110.1 DERMATOPHYTOSIS OF NAIL 02/06/2012 [facility], KVNG R 780.8 GENERALIZED HYPERHIDROSIS 02/06/2012 [facility], KVNG R 782.1 RASH AND OTHER NONSPECIFIC SKIN ERUPTION 02/06/2012 110.1 DERMATOPHYTOSIS OF NAIL 02/06/2012 780.8 GENERALIZED HYPERHIDROSIS 02/06/2012 782.1 RASH AND OTHER NONSPECIFIC SKIN ERUPTION 02/06/2012 110.1 DERMATOPHYTOSIS OF NAIL 02/06/2012 780.8 GENERALIZED HYPERHIDROSIS 02/06/2012 782.1 RASH AND OTHER NONSPECIFIC SKIN ERUPTION 02/06/2012 [facility], KVNG R 110.1 DERMATOPHYTOSIS OF NAIL 02/06/2012 [facility], KVNG R 780.8 GENERALIZED HYPERHIDROSIS 02/06/2012 [facility], KVNG R 782.1 RASH AND [...] RASH AND OTHER NONSPECIFIC SKIN ERUPTION 02/06/2012 [facility] 110.1 DERMATOPHYTOSIS OF NAIL 02/06/2012 [facility], KVNG R 780.8 GENERALIZED HYPERHIDROSIS 02/06/2012 [facility] 782.1 RASH AND OTHER NONSPECIFIC SKIN ERUPTION 02/06/2012 [facility], KVNG R 110.1 DERMATOPHYTOSIS OF NAIL 02/06/2012 [facility], KVNG R 780.8 GENERALIZED HYPERHIDROSIS 02/06/2012 [facility], KVNG R 782.1 RASH AND OTHER NONSPECIFIC SKIN ERUPTION 02/06/2012 [facility], KV[facility] R 110.1 DERMATOPHYTOSIS OF NAIL 02/06/2012 [facility], KVNG R 780.8 GENERALIZED HYPERHIDROSIS 02/06/2012 [facility], KVNG R 782.1 RASH AND OTHER NONSPECIFIC SKIN ERUPTION 02/06/2012 NATHALIE TORO MD 110.1 DERMATOPHYTOSIS OF NAIL 02/06/2012 NATHALIE TORO MD 780.8 GENERALIZED HYPERHIDROSIS 02/06/2012 NATHALIE TORO MD 782.1 RASH AND OTHER NONSPECIFIC SKIN ERUPTION 02/06/2012 [facility], KVNG R 110.1 DERMATOPHYTOSIS OF NAIL 02/06/2012 [facility], KVNG R 780.8 GENERALIZED HYPERHIDROSIS 02/06/2012 [facility], KVNG R 782.1 RASH AND OTHER NONSPECIFIC SKIN ERUPTION 02/06/2012 EDUARDO COBB JR S 110.1 DERMATOPHYTOSIS OF NAIL 02/06/2012 EDUARDO COBB JR S 780.8 GENERALIZED HYPERHIDROSIS 02/06/2012 EDUARDO COBB JR S 782.1 RASH AND OTHER NONSPECIFIC SKIN ERUPTION 02/06/2012 [facility], KVNG R 110.1 DERMATOPHYTOSIS OF NAIL 02/06/2012 [facility], KVNG R 780.8 GENERALIZED HYPERHIDROSIS 02/06/2012 [facility], KVNG R 782.1 RASH AND OTHER NONSPECIFIC SKIN ERUPTION 02/06/2012 [facility], KVNG R 110.1 DERMATOPHYTOSIS OF NAIL 02/06/2012 [facility], KVNG R 780.8 GENERALIZED HYPERHIDROSIS 02/06/2012 [facility], KVNG R 782.1 RASH AND OTHER NONSPECIFIC SKIN ERUPTION 02/06/2012 [employer], LETTY S 110.1 DERMATOPHYTOSIS OF NAIL 02/06/2012 [employer], LETTY S 780.8 GENERALIZED HYPERHIDROSIS 02/06/2012 [employer], LETTY S 782.1 RASH AND OTHER NONSPECIFIC SKIN ERUPTION 02/06/2012 NATHALIE TORO MD 110.1 DERMATOPHYTOSIS OF NAIL 02/06/2012 NATHALIE TORO MD 780.8 GENERALIZED HYPERHIDROSIS 02/06/2012 NATHALIE TORO MD 782.1 RASH AND OTHER NONSPECIFIC SKIN ERUPTION 02/06/2012 [facility], KVNG R 110.1 DERMATOPHYTOSIS OF NAIL 02/06/2012 [facility], KVNG R 780.8 GENERALIZED HYPERHIDROSIS 02/06/2012 [facility], KVNG R 782.1 RASH AND OTHER NONSPECIFIC SKIN ERUPTION 02/06/2012 NATHALIE TORO MD 110.1 DERMATOPHYTOSIS OF NAIL 02/06/2012 NATHALIE TORO MD 780.8 GENERALIZED HYPERHIDROSIS 02/06/2012 NATHALIE TORO MD 782.1 RASH AND OTHER NONSPECIFIC SKIN ERUPTION 02/06/2012 [facility], KVNG R 110.1 DERMATOPHYTOSIS OF NAIL 02/06/2012 [facility] KVNG R 780.8 GENERALIZED HYPERHIDROSIS 02/06/2012 [facility], KVNG R 782.1 RASH AND OTHER NONSPECIFIC SKIN ERUPTION 02/06/2012 [facility], KVNG R 110.1 DERMATOPHYTOSIS OF NAIL 02/06/2012 [facility], KVNG R 780.8 GENERALIZED HYPERHIDROSIS 02/06/2012 [facility], KVNG R 782.1 RASH AND OTHER NONSPECIFIC SKIN ERUPTION 02/06/2012 [facility], KVNG R 110.1 DERMATOPHYTOSIS OF NAIL 02/06/2012 [facility], KVNG R 780.8 GENERALIZED HYPERHIDROSIS 02/06/2012 [facility], KVNG R 782.1 RASH AND OTHER NONSPECIFIC SKIN ERUPTION 02/06/2012 [employer]ICER, ROBERT 110.1 DERMATOPHYTOSIS OF NAIL 02/06/2012 [employer] VOICER, ROBERT 780.8 GENERALIZED HYPERHIDROSIS 02/06/2012 WANG [employer] PIPE VOICER, ROBERT 782.1 RASH AND OTHER NONSPECIFIC SKIN ERUPTION 02/06/2012 WANG [employer] PIPE VOICER, ROBERT 110.1 DERMATOPHYTOSIS OF NAIL 02/06/2012 WANG [employer] PIPE VOICER, ROBERT 780.8 GENERALIZED HYPERHIDROSIS 02/06/2012 WANG [employer] P[employer] VOICER, ROBERT 782.1 RASH AND OTHER NONSPECIFIC SKIN ERUPTION 02/06/2012 FRANK[employer] P[employer] VOICER, LETTY S 110.1 DERMATOPHYTOSIS OF NAIL 02/06/2012 [employer] VO[employer]ER, LETTY S 780.8 GENERALIZED HYPERHIDROSIS 02/06/2012 FRANYK ORGAN PIPE VOICER, LETTY S 782.1 RASH AND OTHER NONSPECIFIC [...] AND OTHER NONSPECIFIC SKIN ERUPTION 02/06/2012 WANG [employer] P[employer] VOICER, ROBERT 110.1 DERMATOPHYTOSIS OF NAIL 02/06/2012 WANG [employer] P[employer] VOICER, ROBERT 780.8 GENERALIZED HYPERHIDROSIS 02/06/2012 WANG [employer] PIPE VOICER, ROBERT 782.1 RASH AND OTHER NONSPECIFIC SKIN ERUPTION 02/06/2012 [facility], KVNG R 110.1 DERMATOPHYTOSIS OF NAIL 02/06/2012 [facility], KVNG R 780.8 GENERALIZED HYPERHIDROSIS 02/06/2012 [facility] 782.1 RASH AND OTHER NONSPECIFIC SKIN ERUPTION 02/06/2012 [employer] VO[employer]ER, LETTY S 110.1 DERMATOPHYTOSIS OF NAIL 02/06/2012 FR[employer] VOICER, LETTY S 780.8 GENERALIZED HYPERHIDROSIS 02/06/2012 FR[employer] VOICER, LETTY S 782.1 RASH AND OTHER NONSPECIFIC [...] RASH AND OTHER NONSPECIFIC SKIN ERUPTION 02/06/2012 [facility], KVNG R 110.1 DERMATOPHYTOSIS OF NAIL 02/06/2012 [facility], KVNG R 780.8 GENERALIZED HYPERHIDROSIS 02/06/2012 [facility], KVNG R 782.1 RASH AND OTHER NONSPECIFIC SKIN ERUPTION 02/06/2012 [facility] DDS, WILLARD N 110.1 DERMATOPHYTOSIS OF NAIL 02/06/2012 [facility] DDS, WILLARD N 780.8 GENERALIZED HYPERHIDROSIS 02/06/2012 [facility] DDS, WILLARD N 782.1 RASH AND OTHER NONSPECIFIC SKIN ERUPTION 02/08/2012 [facility] DDS, WILLARD N V76.2 CERVICAL CANCER SCREENING (PAP SMEAR) 02/08/2012 [facility], [facility]VNG R V76.2 CERVICAL CANCER SCREENING (PAP SMEAR) 02/08/2012 V76.2 CERVICAL CANCER SCREENING (PAP SMEAR) 02/08/2012 V76.2 CERVICAL CANCER SCREENING (PAP SMEAR) 02/08/2012 [facility] V76.2 CERVICAL CANCER SCREENING (PAP SMEAR) [...] V76.2 CERVICAL CANCER SCREENING (PAP SMEAR) 02/08/2012 [facility] V76.2 CERVICAL CANCER SCREENING (PAP SMEAR) 02/08/2012 [facility] V76.2 CERVICAL CANCER SCREENING (PAP SMEAR) 02/08/2012 [facility] V76.2 CERVICAL CANCER SCREENING (PAP SMEAR) 02/08/2012 NATHALIE TORO MD V76.2 CERVICAL CANCER SCREENING (PAP SMEAR) 02/08/2012 [facility], [facility]NG R V76.2 CERVICAL CANCER SCREENING (PAP SMEAR) 02/08/2012 EDUARDO COBB JR V76.2 CERVICAL CANCER SCREENING (PAP SMEAR) 02/08/2012 [facility], KVNG R V76.2 CERVICAL CANCER SCREENING (PAP SMEAR) 02/08/2012 [facility], [facility] R V76.2 CERVICAL CANCER SCREENING (PAP SMEAR) 02/08/2012 LETTY WILKINS APRN V76.2 CERVICAL CANCER SCREENING (PAP SMEAR) 02/08/2012 NATHALIE TORO MD V76.2 CERVICAL CANCER SCREENING (PAP SMEAR) 02/08/2012 [facility], KVNG R V76.2 CERVICAL CANCER SCREENING (PAP SMEAR) 02/08/2012 NATHALIE TORO MD V76.2 CERVICAL CANCER SCREENING (PAP SMEAR) 02/08/2012 [facility], KVNG R V76.2 CERVICAL CANCER SCREENING (PAP SMEAR) 02/08/2012 [facility], [facility] R V76.2 CERVICAL CANCER SCREENING (PAP SMEAR) 02/08/2012 [facility], [facility] R V76.2 CERVICAL CANCER SCREENING (PAP SMEAR) 02/08/2012 WANG ORGAN PIPE VOICER, ROBERT V76.2 CERVICAL CANCER SCREENING (PAP SMEAR) 02/08/2012 SHIRA PIÑA APRNETTE V76.2 CERVICAL CANCER SCREENING (PAP SMEAR) 02/08/2012 LETTY WILKINS APRN V76.2 CERVICAL CANCER SCREENING (PAP SMEAR) 02/08/2012 [facility], [facility] R V76.2 CERVICAL CANCER SCREENING (PAP SMEAR) 02/08/2012 [facility], [facility] R V76.2 CERVICAL CANCER SCREENING (PAP SMEAR) 02/08/2012 WANG DAY ROBERT V76.2 CERVICAL CANCER SCREENING (PAP SMEAR) 02/08/2012 [facility], [facility] R V76.2 CERVICAL CANCER SCREENING (PAP SMEAR) 02/08/2012 LETTY WILKINS APRN V76.2 CERVICAL CANCER SCREENING (PAP SMEAR) 02/08/2012 [facility], K[facility]NG R V76.2 CERVICAL CANCER SCREENING (PAP SMEAR) 02/08/2012 [facility], [facility] R V76.2 CERVICAL CANCER SCREENING (PAP SMEAR) 02/08/2012 [facility], [facility] R V76.2 CERVICAL CANCER SCREENING (PAP SMEAR) 02/08/2012 MANASA ROCHA, WILLARD N V76.2 CERVICAL CANCER SCREENING (PAP SMEAR) 07/30/2012 MANASA ROCHA, WILLARD N V04.81 FLU DX (3 YRS [...] AND ABOVE, IM) 07/30/2012 EDUARDO COBB JR V04.81 FLU DX (3 YRS AND ABOVE, [...] (3 YRS AND ABOVE, IM) 07/30/2012 WANG [employer] P[employer] VOICER, ROBERT V04.81 FLU DX (3 YRS AND ABOVE, IM) 07/30/2012 WANG [employer] P[employer] VOICER, ROBERT V04.81 FLU DX (3 YRS AND ABOVE, IM) 07/30/2012 LETTY WILKINS APRN S V04.81 FLU DX (3 YRS AND ABOVE, IM) 07/30/2012 [facility], [facility] R V04.81 FLU DX (3 YRS AND ABOVE, IM) 07/30/2012 [facility], [facility] R V04.81 FLU DX (3 YRS AND ABOVE, IM) 07/30/2012 WANG [employer] P[employer] VOICER, ROBERT V04.81 FLU DX (3 YRS AND [...] DX (3 YRS AND ABOVE, IM) 11/04/2013 FRANKY [employer] PIPE VOICER, LETTY S 388.70 OTALGIA 11/04/2013 MUNA SAUNDERS, NATHALIE 388.70 OTALGIA 11/04/2013 [facility], [facility] R 388.70 OTALGIA 11/04/2013 MUNA SAUNDERS, NATHALIE 388.70 OTALGIA 11/04/2013 [facility], [facility] R 388.70 OTALGIA 11/04/2013 [facility], KVNG R 388.70 OTALGIA 11/04/2013 [facility], KVNG R 388.70 OTALGIA 11/04/2013 WANG [employer] P[employer] VOICER, ROBERT 388.70 OTALGIA 11/04/2013 WANG [employer] PIPE VOICER, ROBERT 388.70 OTALGIA 11/04/2013 FRANKY [employer] PIPE VOICER, LETTY S 388.70 OTALGIA 11/04/2013 [facility], KVNG R 388.70 OTALGIA 11/04/2013 [facility], KVNG R 388.70 OTALGIA 11/04/2013 WANG [employer] PIPE VOICER, ROBERT 388.70 OTALGIA 11/04/2013 [facility], KVNG R 388.70 OTALGIA 11/04/2013 FRANKY [employer] PIPE VOICER, LETTY S 388.70 OTALGIA 11/04/2013 [facility], KVNG R 388.70 OTALGIA 11/04/2013 [facility], KVNG R 388.70 OTALGIA 11/04/2013 [facility], [facility] R 388.70 OTALGIA 05/23/2014 FRANKY [employer] PIPE VOICER, LETTY S 616.10 VAGINITIS AND VULVOVAGINITIS UNSPECIFIED 05/23/2014 [facility].10 VAGINITIS AND VULVOVAGINITIS UNSPECIFIED 05/23/2014 [facility] 616.10 VAGINITIS AND VULVOVAGINITIS UNSPECIFIED 05/23/2014 WANG ORGAN PIPE VOICER, ROBERT 616.10 VAGINITIS AND VULVOVAGINITIS UNSPECIFIED 05/23/2014 [facility] 616.10 VAGINITIS AND VULVOVAGINITIS UNSPECIFIED 05/23/2014 FRANKY ORGAN PIPE VOICER, LETTY S 616.10 VAGINITIS AND VULVOVAGINITIS UNSPECIFIED 05/23/2014 [facility], KVNG R 616.10 VAGINITIS AND VULVOVAGINITIS UNSPECIFIED 05/23/2014 [facility], KVNG R 616.10 VAGINITIS AND VULVOVAGINITIS UNSPECIFIED 05/23/2014 [facility], KVNG R 616.10 VAGINITIS AND VULVOVAGINITIS UNSPECIFIED 05/26/2014 [facility], KVNG R 272.4 HYPERLIPIDEMIA 05/26/2014 [facility], KVNG R 272.4 HYPERLIPIDEMIA 05/26/2014 WANG ORGAN PIPE VOICER, ROBERT 272.4 HYPERLIPIDEMIA 05/26/2014 [facility], KVNG R 272.4 HYPERLIPIDEMIA 05/26/2014 FRANKY ORGAN PIPE VOICER, LETTY S 272.4 HYPERLIPIDEMIA 05/26/2014 [facility], KVNG R 272.4 HYPERLIPIDEMIA 05/26/2014 [facility], KVNG R 272.4 HYPERLIPIDEMIA 05/26/2014 [facility], KVNG R 272.4 HYPERLIPIDEMIA 06/21/2014 WANG [employer] PIPE VOICER, ROBERT 300.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 06/21/2014 [facility] 300.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 06/21/2014 ANTONIA WILKINS APRNNDA S 300.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 06/21/2014 [facility], KVNG R 300.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 06/21/2014 [facility] 300.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 06/21/2014 [facility] 300.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 07/28/2014 ANTONIA WILKINS APRNNDA S 789.00 ABDOMINAL PAIN UNSPECIFIED SITE 07/28/2014 [facility] 789.00 ABDOMINAL PAIN UNSPECIFIED SITE 07/28/2014 [facility], KVNG R 789.00 ABDOMINAL PAIN UNSPECIFIED SITE 07/28/2014 [facility] 789.00 ABDOMINAL PAIN UNSPECIFIED SITE [...] V76.12 08/08/2014 JEFFERY HALL Ot 473.9 08/08/2014 LETTY WILKINS Ot 562.10 08/08/2014 LETTY WILKINS Ot 625.8 08/16/2014 LETTY WILKINS Ot 562.10 08/16/2014 LETTY WILKINS Ot 625.8 08/30/2014 LETTY WILKINS Ot 789.00 10/18/2014 [facility], KVNG R V18.0 FAMILY HISTORY OF DIABETES MELLITUS 10/18/2014 [facility], KVNG R V18.0 FAMILY HISTORY OF DIABETES MELLITUS 11/26/2014 [facility], KVNG R 465.9 UPPER RESPIRATORY INFECTION 11/26/2014 [facility], KVNG R 719.41 PAIN- SHOULDER [...] V76.12 12/29/2014 JEFFERY HALL Ot 473.9 12/29/2014 FRANKYLETTY GASOLINE ENGINE INSPECTOR Ot 562.10 12/29/2014 LETTY WILKINS GASOLINE ENGINE INSPECTOR Ot 625.8 12/29/2014 LETTY WILKINS GASOLINE ENGINE INSPECTOR Ot 789.00 01/05/2015 VITA VINES GASOLINE ENGINE INSPECTOR Ot 726.0 01/05/2015 ALEX VINESON D GASOLINE ENGINE INSPECTOR Ot 726.2 01/05/2015 ALEX VINESON D GASOLINE ENGINE INSPECTOR Ot V57.1 01/06/2015 ALEX VINESON D GASOLINE ENGINE INSPECTOR Ot 726.0 01/06/2015 ALEX VINESON D GASOLINE ENGINE INSPECTOR Ot 726.2 01/06/2015 ALEX VINESON D GASOLINE ENGINE INSPECTOR Ot V57.1 01/06/2015 ALEX VINESON Steve GASOLINE ENGINE INSPECTOR Ot 726.0 01/06/2015 ALEX VINESON D GASOLINE ENGINE INSPECTOR Ot 726.2 01/06/2015 ALEX VINESON D GASOLINE ENGINE INSPECTOR Ot V57.1 01/25/2015 ALEX VINESON D GASOLINE ENGINE INSPECTOR Ot 726.0 01/25/2015 ALEX VINESON D GASOLINE ENGINE INSPECTOR Ot 726.2 01/25/2015 ALEX VINESON D GASOLINE ENGINE INSPECTOR Ot V57.1 01/25/2015 ALEX VINESON D GASOLINE ENGINE INSPECTOR Ot 726.0 01/25/2015 ALEX VINESON D GASOLINE ENGINE INSPECTOR Ot 726.2 01/25/2015 ALEX VINESON D GASOLINE ENGINE INSPECTOR Ot V57.1 01/25/2015 ALEX VINESON D GASOLINE ENGINE INSPECTOR Ot 726.0 01/25/2015 ALEX VINESON D GASOLINE ENGINE INSPECTOR Ot 726.2 01/25/2015 ALEX VINESON D GASOLINE ENGINE INSPECTOR Ot V57.1 01/25/2015 ALEX VINESON D GASOLINE ENGINE INSPECTOR Ot 726.0 01/25/2015 ALEX VINESON D GASOLINE ENGINE INSPECTOR Ot 726.2 01/25/2015 ALEX VINESON D GASOLINE ENGINE INSPECTOR Ot V57.1 02/14/2015 ALEX VINESON D GASOLINE ENGINE INSPECTOR Ot 726.0 02/14/2015 ALEX VINESON D GASOLINE ENGINE INSPECTOR Ot 726.2 02/14/2015 ALEX VINESON D GASOLINE ENGINE INSPECTOR Ot V57.1 02/22/2015 VINES, VITA D GASOLINE ENGINE INSPECTOR Ot 726.0 02/22/2015 VITA VINES GASOLINE ENGINE INSPECTOR Ot 726.2 02/22/2015 VITA VINES GASOLINE ENGINE INSPECTOR Ot V57.1 02/22/2015 VITA VINES GASOLINE ENGINE INSPECTOR Ot 726.0 02/22/2015 VITA VINES GASOLINE ENGINE INSPECTOR Ot 726.2 02/22/2015 VITA VINES GASOLINE ENGINE INSPECTOR Ot V57.1 03/09/2015 VITA VINES GASOLINE ENGINE INSPECTOR Ot 726.0 03/09/2015 VITA VINES GASOLINE ENGINE INSPECTOR Ot 726.2 03/09/2015 VITA VINES GASOLINE ENGINE INSPECTOR Ot V57.1 03/09/2015 VITA VINES GASOLINE ENGINE INSPECTOR Ot 726.0 03/09/2015 VITA VINES GASOLINE ENGINE INSPECTOR Ot 726.2 03/09/2015 VITA VINES GASOLINE ENGINE INSPECTOR Ot V57.1 03/27/2015 VITA VINES GASOLINE ENGINE INSPECTOR Ot 726.0 03/27/2015 VITA VINES GASOLINE ENGINE INSPECTOR Ot 726.2 03/27/2015 VITA VINES GASOLINE ENGINE INSPECTOR Ot V57.1 03/27/2015 VITA VINES GASOLINE ENGINE INSPECTOR Ot 726.0 03/27/2015 VITA VINES GASOLINE ENGINE INSPECTOR Ot 726.2 03/27/2015 VITA VINES GASOLINE ENGINE INSPECTOR Ot V57.1 04/02/2015 VITA VINES GASOLINE ENGINE INSPECTOR Ot 726.0 ADHESIVE CAPSULIT SHLDER 04/02/2015 VITA VINES GASOLINE ENGINE INSPECTOR Ot 726.2 SHOULDER REGION DIS NEC 04/02/2015 VITA VINES GASOLINE ENGINE INSPECTOR Ot V57.1 PHYSICAL THERAPY NEC 04/04/2015 VITA VINES GASOLINE ENGINE INSPECTOR Ot 726.0 04/04/2015 VITA VINES GASOLINE ENGINE INSPECTOR Ot 726.2 04/04/2015 VITA VINES GASOLINE ENGINE INSPECTOR Ot V57.1 04/04/2015 VITA VINES GASOLINE ENGINE INSPECTOR Ot 726.0 04/04/2015 VITA VINES GASOLINE ENGINE INSPECTOR Ot 726.2 04/04/2015 VITA VINES GASOLINE ENGINE INSPECTOR Ot V57.1 04/05/2015 VITA VINES GASOLINE ENGINE INSPECTOR Ot 726.0 04/05/2015 VITA VINES GASOLINE ENGINE INSPECTOR Ot 726.2 04/05/2015 VITA VINES GASOLINE ENGINE INSPECTOR Ot V57.1 04/05/2015 VITA VINES GASOLINE ENGINE INSPECTOR Ot 726.0 04/05/2015 VITA VINES GASOLINE ENGINE INSPECTOR Ot 726.2 04/05/2015 VITA VINES GASOLINE ENGINE INSPECTOR Ot V57.1 04/17/2015 VITA VINES GASOLINE ENGINE INSPECTOR Ot 726.0 04/17/2015 VITA VINES GASOLINE ENGINE INSPECTOR Ot 726.2 04/17/2015 VITA VINES GASOLINE ENGINE INSPECTOR Ot V57.1 04/17/2015 VITA VINES GASOLINE ENGINE INSPECTOR Ot 726.0 04/17/2015 VITA VINES GASOLINE ENGINE INSPECTOR Ot 726.2 04/17/2015 VITA VINES GASOLINE ENGINE INSPECTOR Ot V57.1 04/27/2015 VITA VINES GASOLINE ENGINE INSPECTOR Ot 726.0 04/27/2015 VITA VINES GASOLINE ENGINE INSPECTOR Ot 726.2 04/27/2015 VITA VINES GASOLINE ENGINE INSPECTOR Ot V57.1 04/27/2015 VITA VINES GASOLINE ENGINE INSPECTOR Ot 726.0 04/27/2015 VITA VINES GASOLINE ENGINE INSPECTOR Ot 726.2 04/27/2015 VITA VINES GASOLINE ENGINE INSPECTOR Ot V57.1 05/08/2015 VITA VINES GASOLINE ENGINE INSPECTOR Ot 726.0 05/08/2015 VITA VINES GASOLINE ENGINE INSPECTOR Ot 726.2 05/08/2015 VITA VINES GASOLINE ENGINE INSPECTOR Ot V57.1 05/09/2015 VITA VINES GASOLINE ENGINE INSPECTOR Ot 726.0 ADHESIVE CAPSULIT SHLDER 05/09/2015 VITA VINES GASOLINE ENGINE INSPECTOR Ot 726.2 SHOULDER REGION DIS NEC 05/09/2015 VITA VINES GASOLINE ENGINE INSPECTOR Ot V57.1 PHYSICAL THERAPY NEC 05/12/2015 Ot 785.0 05/12/2015 Ot 786.50 05/12/2015 Ot V76.12 05/12/2015 Ot 787.02 05/12/2015 Ot 787.3 05/12/2015 Ot 789.00 05/12/2015 Ot 244.9 05/12/2015 Ot 250.00 05/12/2015 Ot 401.9 05/12/2015 Ot 530.81 05/12/2015 Ot 562.10 05/12/2015 Ot 780.39 05/12/2015 Ot V58.69 05/12/2015 Ot 553.3 05/12/2015 LETTY WILKINSP Ot V76.12 05/12/2015 JEFFERY HALLP Ot 473.9 05/12/2015 LETTY WILKINSP Ot 562.10 05/12/2015 LETTY WILKINSP Ot 625.8 05/12/2015 LETTY WILKINSP Ot 789.00 06/07/2015 JOAO SAUNDERS, PATRIA Bella Ot M75.01 ADHESIVE CAPSULITIS OF RIGHT SHOULDER 06/07/2015 JOAO SAUNDERS, PATRIA Bella Ot S43.431A SUPERIOR GLENOID LABRUM LESION OF RIGHT 06/15/2015 JOAO SAUNDERS, PATRIA Bella Ot M75.101 06/15/2015 JOAO SAUNDERS, PATRIA Bella Ot Z01.818 06/15/2015 JOAO SAUNDERS, PATRIA Bella Ot Z11.2 11/10/2015 Ot 785.0 11/10/2015 Ot 786.50 11/10/2015 Ot V76.12 11/10/2015 Ot 787.02 11/10/2015 Ot 787.3 11/10/2015 Ot 789.00 11/10/2015 Ot 244.9 11/10/2015 Ot 250.00 11/10/2015 Ot 401.9 11/10/2015 Ot 530.81 11/10/2015 Ot 562.10 11/10/2015 Ot 780.39 11/10/2015 Ot V58.69 11/10/2015 Ot 553.3 11/10/2015 LETTY WILKINS Ot V76.12 11/10/2015 JEFFERY HALL Ot 473.9 11/10/2015 LETTY WILKINSP Ot 562.10 11/10/2015 LETTY WILKINSP Ot 625.8 11/10/2015 LETTY WILKINSP Ot 789.00 11/10/2015 VITA VINES GASOLINE ENGINE INSPECTOR Ot 726.0 11/10/2015 VITA VINES GASOLINE ENGINE INSPECTOR Ot 726.10 11/21/2015 CAROLTHEAKAY KAYE ORGAN PIPE VOICER Ot N92.1 11/21/2015 CAROLTHEAKAY KAYE ORGAN PIPE VOICER Ot Z87.42 11/27/2015 KAY NARANJO ORGAN PIPE VOICER Ot R92.2 12/06/2015 CAROLTHEAKAY KAYE ORGAN PIPE VOICER Ot N92.1 12/06/2015 CAROLHTEAKAY KAYE ORGAN PIPE VOICER Ot Z87.42 12/14/2015 Ot 785.0 TACHYCARDIA NOS 12/14/2015 Ot 786.50 CHEST PAIN NOS 12/14/2015 Ot V76.12 OTH SCREEN MAMMO- MALIGN NEOPLASM OF [place] 12/14/2015 Ot 787.02 NAUSEA [...] MAMMO-MALIGN NEOPLASM OF [place] 12/14/2015 JEFFERY HALL SLIP COVER ESTIMATOR Ot 473.9 CHRONIC SINUSITIS NOS 12/14/2015 LETTY WILKINS GASOLINE ENGINE INSPECTOR Ot 562.10 DIVERTICULOSIS COLON (W/O MENT OF HEMORR 12/14/2015 LETTY WILKINS GASOLINE ENGINE INSPECTOR Ot 625.8 FEM GENITAL SYMPTOMS NEC 12/14/2015 LETTY WILKINS GASOLINE ENGINE INSPECTOR Ot 789.00 ABDOMINAL PAIN, UNSPECIFIED SITE 12/14/2015 VITA VINES GASOLINE ENGINE INSPECTOR Ot 726.0 ADHESIVE CAPSULIT SHLDER 12/14/2015 VITA VINES SAADIA Ot 726.10 BURSAE TENDONS DIS SHLDER NOS 12/14/2015 KAY NARANJO ORGAN PIPE VOICER Ot R92.2 INCONCLUSIVE MAMMOGRAM 12/14/2015 KAY NARANJO ORGAN PIPE VOICER Ot N92.1 EXCESSIVE AND FREQUENT MENSTRUATION WITH 12/14/2015 KAY NARANJO ORGAN PIPE VOICER Ot Z87.42 PERSONAL HISTORY OF OTH DISEASES OF THE 12/19/2015 AN LAYTON DO Ot K57.30 DVRTCLOS OF LG INT W/O PERFORATION OR AB 12/19/2015 AN LAYTON DO Ot Z12.11 ENCOUNTER FOR SCREENING FOR MALIGNANT NE 12/19/2015 AN LAYTON DO Ot Z86.010 PERSONAL HISTORY OF COLONIC POLYPS 12/20/2015 AN LAYTON DO Ot K57.30 DVRTCLOS OF LG INT W/O PERFORATION OR AB 12/20/2015 AN LAYTON DO Ot Z12.11 ENCOUNTER FOR SCREENING FOR MALIGNANT NE 12/20/2015 AN LAYTON DO Ot Z86.010 PERSONAL HISTORY OF COLONIC POLYPS 01/11/2016 PATRIA CABRAL MD Ot M75.101 UNSP ROTATR-CUFF TEAR/RUPTR OF RIGHT TEREZA 01/11/2016 PATRIA CABRAL MD Ot Z01.818 ENCOUNTER FOR OTHER PREPROCEDURAL EXAMIN 01/11/2016 PATRIA CABRAL MD Ot Z11.2 ENCOUNTER FOR SCREENING FOR OTHER BACTER 01/12/2016 ELTTY WILKINS Ot N83.29 OTHER OVARIAN CYSTS 01/24/2016 [...] N83.201 UNSPECIFIED OVARIAN CYST, RIGHT SIDE 10/28/2016 FRANKY, LETTY GASOLINE ENGINE INSPECTOR Ot N83.201 UNSPECIFIED OVARIAN CYST, RIGHT SIDE 11/14/2016 JACQUELINE SAUNDERS, HAO Rangel Ot Z12.31 ENCNTR SCREEN MAMMOGRAM FOR MALIGNANT NE 11/15/2016 HAO PHILLIPS MD Ot Z12.31 ENCNTR SCREEN MAMMOGRAM FOR MALIGNANT NE 11/26/2016 RUSTAM BARROSO PATRIA S Ot N92.0 EXCESSIVE AND FREQUENT MENSTRUATION WITH 11/26/2016 FENECH , PATRIA S Ot Z01.812 ENCOUNTER FOR PREPROCEDURAL LABORATORY E 11/26/2016 FENECH DO, PATRIA S Ot Z11.2 ENCOUNTER FOR SCREENING FOR OTHER BACTER 11/27/2016 JACQUELINE SAUNDERS, HAO Rangel Ot Z12.31 ENCNTR SCREEN MAMMOGRAM FOR MALIGNANT NE 11/28/2016 JOAO SAUNDERS, PATRIA Bella Ot M75.101 UNSP ROTATR-CUFF TEAR/RUPTR OF RIGHT TEREZA 11/28/2016 PATRIA CABRAL MD Ot Z01.818 ENCOUNTER FOR OTHER PREPROCEDURAL EXAMIN 11/28/2016 PATRIA CABRAL MD Ot Z11.2 ENCOUNTER FOR SCREENING FOR OTHER BACTER 11/28/2016 LETTY WILKINS GASOLINE ENGINE INSPECTOR Ot N83.29 OTHER OVARIAN CYSTS 11/28/2016 LETTY WILKINS GASOLINE ENGINE INSPECTOR Ot N83.201 UNSPECIFIED OVARIAN CYST, RIGHT SIDE 11/28/2016 JACQUELINE SAUNDERS, HAO Rangel Ot Z12.31 ENCNTR SCREEN MAMMOGRAM FOR MALIGNANT NE 11/28/2016 FENECH DO, PATRIA S Ot N92.0 EXCESSIVE AND FREQUENT MENSTRUATION WITH 12/02/2016 FENECH DO, PATRIA S Ot N92.0 EXCESSIVE AND FREQUENT MENSTRUATION WITH 12/02/2016 FENECH DO, PATRIA S Ot Z01.812 ENCOUNTER FOR PREPROCEDURAL LABORATORY E 12/02/2016 CHANNINGECH , PATRIA S Ot Z11.2 ENCOUNTER FOR SCREENING FOR OTHER BACTER 12/13/2016 CHEYENNE ECHOLS APRN Ot D28.7 BENIGN NEOPLASM OF OTHER SPECIFIED FEMAL 12/13/2016 CHEYENNE ECHOLS ORGAN PIPE VOICER Ot F17.210 NICOTINE DEPENDENCE, CIGARETTES, UNCOMPL 12/13/2016 CHEYENNE ECHOLS ORGAN PIPE VOICER Ot K57.30 DVRTCLOS OF LG INT W/O PERFORATION OR AB 12/13/2016 ECHOLS, PETER J ORGAN PIPE VOICER Ot R10.31 RIGHT LOWER QUADRANT PAIN 12/13/2016 CHEYENNE ECHOLS ORGAN PIPE VOICER Ot R11.2 NAUSEA WITH VOMITING, UNSPECIFIED 12/13/2016 CHEYENNE ECHOLS ORGAN PIPE VOICER Ot R19.7 DIARRHEA, UNSPECIFIED 12/13/2016 CHEYENNE ECHOLS ORGAN PIPE VOICER Ot Z90.49 ACQUIRED ABSENCE OF OTHER SPECIFIED PART 12/16/2016 CAYDEN GUTIERRES MD Ot 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 12/16/2016 CAYDEN GUTIERRES MD Ot F17.210 NICOTINE DEPENDENCE, CIGARETTES, UNCOMPL 12/16/2016 CAYDEN GUTIERRES MD Ot R10.31 RIGHT LOWER QUADRANT PAIN 12/17/2016 CAYDEN GUTIRERES MD, Ot 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 12/17/2016 CAYDEN GUTIERRES MD Ot F17.210 NICOTINE DEPENDENCE, CIGARETTES, UNCOMPL 12/17/2016 CAYDEN GUTIERRES MD Ot R10.31 RIGHT LOWER QUADRANT PAIN 12/17/2016 PATRIA EASTON DO Ot 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, FALLOP 12/17/2016 PATRIA EASTON DO Ot Z01.818 ENCOUNTER FOR OTHER PREPROCEDURAL EXAMIN 12/17/2016 PATRIA EASTON DO Ot Z11.2 ENCOUNTER FOR SCREENING FOR OTHER BACTER 12/18/2016 PATRIA EASTON DO Ot 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, FALLOP 12/18/2016 PATRAI EASTON DO Ot Z01.818 ENCOUNTER FOR OTHER PREPROCEDURAL EXAMIN 12/18/2016 PATRIA EASTON DO Ot Z11.2 ENCOUNTER FOR SCREENING FOR OTHER BACTER 12/19/2016 PATRIA EASTON DO Ot 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 12/23/2016 PATRIA EASTON DO Ot 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 08/02/2017 BRANDY CASTELLON DO Ot F17.210 NICOTINE DEPENDENCE, CIGARETTES, UNCOMPL 08/02/2017 BRANDY CASTELLON DO Ot F41.9 ANXIETY DISORDER, UNSPECIFIED 08/02/2017 BRANDY CASTELLON DO Ot G40.909 EPILEPSY, UNSP, NOT INTRACTABLE, WITHOUT 08/02/2017 BRANDY CASTELLON DO Ot K21.9 GASTRO-ESOPHAGEAL REFLUX DISEASE WITHOUT 08/02/2017 RAVINDER BARROSOBRANDY Ot K57.92 DVTRCLI OF INTEST, PART UNSP, W/O PERF O 08/02/2017 RAVINDER BARROSOBRANDY Ot R10.32 LEFT LOWER QUADRANT PAIN 08/02/2017 RAVINDER DOBRANDY Ot Z87.42 PERSONAL HISTORY OF OTH DISEASES OF THE 08/02/2017 RAVINDER BARROSOBRANDY Ot Z87.440 PERSONAL HISTORY OF URINARY (TRACT) INFE 01/11/2019 JOAO SAUNDERS, PATRIA Bella Ot M75.101 UNSP ROTATR-CUFF TEAR/RUPTR OF RIGHT TEREZA 01/11/2019 JOAO SAUNDERS, PATRIA Bella Ot Z01.818 ENCOUNTER FOR OTHER PREPROCEDURAL EXAMIN 01/11/2019 PATRIA CABRAL MD Ot Z11.2 ENCOUNTER FOR SCREENING FOR OTHER BACTER 01/11/2019 LETTY WILKINS Ot N83.29 OTHER OVARIAN CYSTS 01/11/2019 LETTY WILKINS Ot N83.201 UNSPECIFIED OVARIAN CYST, RIGHT SIDE 01/11/2019 JACQUELINE SAUNDERS, HAO Rangel Ot Z12.31 ENCNTR SCREEN MAMMOGRAM FOR MALIGNANT NE 01/26/2019 CHEYENNE ECHOLS APRN Ot F41.9 ANXIETY DISORDER, UNSPECIFIED 01/26/2019 CHEYENNE ECHOLS APRN Ot G40.909 EPILEPSY, UNSP, NOT INTRACTABLE, WITHOUT 01/26/2019 CHEYENNE ECHOLS APRN Ot K21.9 GASTRO-ESOPHAGEAL REFLUX DISEASE WITHOUT 01/26/2019 CHEYENNE ECHOLS APRN Ot K57.30 DVRTCLOS OF LG INT W/O PERFORATION OR AB 01/26/2019 CHEYENNE ECHOLS APRN Ot K58.9 IRRITABLE BOWEL SYNDROME WITHOUT DIARRHE 01/26/2019 CHEYENNE ECHOLS APRN Ot R10.32 LEFT LOWER QUADRANT PAIN 01/26/2019 CHEYENNE ECHOLS APRN Ot Z86.010 PERSONAL HISTORY OF COLONIC POLYPS 01/26/2019 CHEYENNE ECHOLS APRN Ot Z87.19 PERSONAL HISTORY OF OTHER DISEASES OF TH 01/26/2019 CHEYENNE ECHOLS APRN Ot Z87.440 PERSONAL HISTORY OF URINARY (TRACT) INFE 01/26/2019 CHEYENNE ECHOLS APRN Ot Z87.448 PERSONAL HISTORY OF OTHER DISEASES OF UR 01/26/2019 CHEYENNE ECHOLS ORGAN PIPE VOICER Ot Z87.891 PERSONAL HISTORY OF NICOTINE DEPENDENCE 01/26/2019 CHEYENNE ECHOLS ORGAN PIPE VOICER Ot Z88.2 ALLERGY STATUS TO SULFONAMIDES STATUS 01/26/2019 CHEYENNE CEHOLS ORGAN PIPE VOICER Ot Z88.5 ALLERGY STATUS TO NARCOTIC AGENT STATUS 01/26/2019 CHEYENNE ECHOLS ORGAN PIPE VOICER Ot Z91.041 RADIOGRAPHIC DYE ALLERGY STATUS 01/26/2019 CHEYENNE ECHOLS ORGAN PIPE VOICER Ot Z98.890 OTHER SPECIFIED POSTPROCEDURAL STATES Procedures Code Description [place] [address] INDIV PSYTX 45/50 MIN 06/18/2012 12144 INDIV PSYTX 45/50 MIN 07/02/2012 40139 INDIV PSYTX 45/50 MIN 07/17/2012 94994 INDIV PSYTX 45/50 MIN 08/06/2012 28129 INDIV PSYTX 45/50 MIN 08/20/2012 57734 PSYTX PT&/FAMILY 45 MINUTES 09/23/2012 02622 PSYTX PT&/FAMILY 45 MINUTES 10/27/2012 53225 PSYTX PT&/FAMILY 45 MINUTES 11/12/2012 39772 PSYTX PT&/FAMILY 45 MINUTES 11/24/2012 45807 PSYTX PT&/FAMILY 45 MINUTES 12/09/2012 65538 PSYTX PT&/FAMILY 45 MINUTES 12/24/2012 06843 PSYTX PT&/FAMILY 45 MINUTES 01/13/2013 67869 PSYTX PT&/FAMILY 45 MINUTES 02/03/2013 20684 PSYTX PT&/FAMILY 45 MINUTES 02/12/2013 80220 ROUTINE VENIPUNCTURE 04/06/2013 56115 CBC 04/06/2013 93197 LIPID PANEL 04/06/2013 15091 CMP 04/06/2013 [id number] GFR CALC (RESULT ONLY) 04/06/2013 33480 MAMMOGRAM, SCREENING 04/14/2013 36368 PSYTX PT&/FAMILY 45 MINUTES 05/11/2013 68454 PSYTX PT&/FAMILY 45 MINUTES 06/17/2013 25054 PSYTX PT&/FAMILY 45 MINUTES 07/02/2013 10333 PSYTX PT&/FAMILY 45 MINUTES 08/26/2013 73342 PSYTX PT&/FAMILY 45 MINUTES 10/08/2013 79337 PSYTX PT&/FAMILY 45 MINUTES 10/21/2013 91600 PSYTX PT&/FAMILY 45 MINUTES 12/17/2013 12541 PSYTX PT&/FAMILY 45 MINUTES 01/18/2014 07090 PSYTX PT&/FAMILY 45 MINUTES 02/15/2014 51604 PSYTX PT&/FAMILY 45 MINUTES 03/17/2014 54428 ROUTINE VENIPUNCTURE 05/23/2014 47718 CMP 05/23/2014 68686 LIPID PANEL 05/23/2014 [id number] GFR CALC (RESULT ONLY) 05/23/2014 43773 CBC 05/23/2014 73876 PSYTX PT&/FAMILY 45 MINUTES 05/24/2014 58797 PSYTX PT&/FAMILY 45 MINUTES 06/14/2014 89695 PSYTX PT&/FAMILY 45 MINUTES 07/15/2014 Obstetric Rustam Patria 07/28/[address] ABDOMEN AND PELVIS W/CONTRAST 07/29/2014 99243 CBC 07/29/2014 87852 US PELVIC COMPL (REFLEX CPT- 87609) 08/08/2014 80750 PSYTX PT&/FAMILY 45 MINUTES 08/12/2014 11288 ROUTINE VENIPUNCTURE 10/18/2014 65663 A1C (IN-HOUSE) 10/18/2014 70924 CMP 10/18/2014 55767 LIPID PANEL 10/18/2014 [id number] GFR CALC (RESULT ONLY) 10/18/2014 63257 XRAY SHOULDER RIGHT COMP 2 VIEWS 11/29/2014 Orthopedi JoaoPatria 12/08/2014 87179 PSYTX PT&/FAMILY 45 MINUTES 12/08/2014 Results Test Result Range Complete blood count (CBC) with automated white blood cell (WBC) differential - 11/26/16 09:25 Blood leukocytes automated count (number/volume) 12.2 10*3/uL 4.3-11.0 Blood erythrocytes automated count (number/volume) 4.58 10*6/uL 4.35-5.85 Venous blood hemoglobin measurement (mass/volume) 14.2 g/dL 11.5-16.0 Blood hematocrit (volume fraction) 42 % 35-52 Automated erythrocyte mean corpuscular volume 92 [foz_us] 80-99 Automated erythrocyte mean corpuscular hemoglobin (mass per erythrocyte) 31 pg 25-34 Automated erythrocyte mean corpuscular hemoglobin concentration measurement (mass/volume) 34 g/dL 32-36 Automated erythrocyte distribution width ratio 12.6 % 10.0- 14.5 Automated blood platelet count (count/volume) 269 10*3/uL 130-400 Automated blood platelet mean volume measurement 10.4 [foz_us] 7.4-10.4 Automated blood neutrophils/100 leukocytes 64 % 42-75 Automated blood lymphocytes/100 leukocytes 28 % 12-44 Blood monocytes/100 leukocytes 6 % 0-12 Automated blood eosinophils/100 leukocytes 2 % 0-10 Automated blood basophils/100 leukocytes 0 % 0-10 Blood neutrophils automated count (number/volume) 7.8 10*3 1.8-7.8 Blood lymphocytes automated count (number/volume) 3.5 10*3 1.0-4.0 Blood monocytes automated count (number/volume) 0.7 10*3 0.0- 1.0 Automated eosinophil count 0.2 10*3/uL 0.0-0.3 Automated blood basophil count (count/volume) 0.1 10*3/uL 0.0-0.1 Blood type T Indirect antibody screen panel - 11/26/16 09:25 ABO+Rh group AP NRG Blood group antibody screen NEGATIVE NRG Methicillin resistant Staphylococcus aureus (MRSA) screening culture - 11/26/16 09:25 Methicillin resistant Staphylococcus aureus (MRSA) screening culture NEG NRG Urine beta human chorionic gonadotropin (hCG) measurement - 11/28/16 07:10 Urine beta human chorionic gonadotropin (hCG) measurement NEGATIVE NEGATIVE Blood type T Indirect antibody screen panel - 11/28/16 07:12 ABO+Rh group AP NRG Transfusion band number [id number] NRG Blood group antibody screen NEGATIVE NRG Complete blood count (CBC) with automated white blood cell (WBC) differential - 12/13/16 13:32 Blood leukocytes automated count (number/volume) 10.8 10*3/uL 4.3-11.0 Blood erythrocytes automated count (number/volume) 4.69 10*6/uL 4.35-5.85 Venous blood hemoglobin measurement (mass/volume) 14.3 g/dL 11.5-16.0 Blood hematocrit (volume fraction) 44 % 35-52 Automated erythrocyte mean corpuscular volume 93 [foz_us] 80-99 Automated erythrocyte mean corpuscular hemoglobin (mass per erythrocyte) 31 pg 25-34 Automated erythrocyte mean corpuscular hemoglobin concentration measurement (mass/volume) 33 g/dL 32-36 Automated erythrocyte distribution width ratio 12.9 % 10.0- 14.5 Automated blood platelet count (count/volume) 290 10*3/uL 130-400 Automated blood platelet mean volume measurement 10.4 [foz_us] 7.4-10.4 Automated blood neutrophils/100 leukocytes 61 % 42-75 Automated blood lymphocytes/100 leukocytes 31 % 12-44 Blood monocytes/100 leukocytes 6 % 0-12 Automated blood eosinophils/100 leukocytes 1 % 0-10 Automated blood basophils/100 leukocytes 1 % 0-10 Blood neutrophils automated count (number/volume) 6.6 10*3 1.8-7.8 Blood lymphocytes automated count (number/volume) 3.4 10*3 1.0-4.0 Blood monocytes automated count (number/volume) 0.7 10*3 0.0- 1.0 Automated eosinophil count 0.2 10*3/uL 0.0-0.3 Automated blood basophil count (count/volume) 0.1 10*3/uL 0.0-0.1 Complete urinalysis with reflex to culture - 12/13/16 13:32 Urine color determination YELLOW NRG Urine clarity determination SLIGHTLY CLOUDY NRG Urine pH measurement by test strip 6 5-9 Specific gravity of urine by test strip [...] sediment leukocyte count by microscopy (number/high power field) [HPF] NRG Bacteria detection in urine sediment by light microscopy TRACE NRG Squamous epithelial cells detection in urine sediment by light microscopy >50 NRG Crystals detection in urine sediment by light microscopy NONE NRG Casts detection in urine sediment by light microscopy NONE NRG Mucus detection in urine sediment by light microscopy NEGATIVE NRG Complete urinalysis with reflex to culture NO [facility] Comprehensive metabolic panel - 12/13/16 13:32 Serum or plasma sodium measurement (moles/volume) 141 mmol/L 135-145 Serum or plasma potassium measurement (moles/volume) 4.5 mmol/L 3.6-5.0 Serum or plasma chloride measurement (moles/volume) 106 mmol/L 98-107 Carbon dioxide 24 mmol/L 21-32 Serum or plasma anion gap determination (moles/volume) 11 mmol/L 5-14 Serum or plasma urea nitrogen measurement (mass/volume) 9 mg/dL 7-18 Serum or plasma creatinine measurement (mass/volume) 0.79 mg/dL 0.60-1.30 Serum or plasma urea nitrogen/creatinine mass ratio 11 [facility] Serum or plasma creatinine measurement with calculation of estimated glomerular filtration rate > [facility] Serum or plasma glucose measurement (mass/volume) 100 mg/dL 70-105 Serum or plasma calcium measurement (mass/volume) 9.1 mg/dL 8.5-10.1 Serum or plasma total bilirubin measurement (mass/volume) 0.3 mg/dL 0.1-1.0 Serum or plasma alkaline phosphatase measurement (enzymatic activity/volume) 91 U/L 40-136 Serum or plasma aspartate aminotransferase measurement (enzymatic activity/volume) 15 U/L 5-34 Serum or plasma alanine aminotransferase measurement (enzymatic activity/volume) 15 U/L 0-55 Serum or plasma protein measurement (mass/volume) 7.4 g/dL 6.4-8.2 Serum or plasma albumin measurement (mass/volume) 4.3 g/dL 3.2-4.5 Complete blood count (CBC) with automated white blood cell (WBC) differential - 12/16/16 18:35 Blood leukocytes automated count (number/volume) 13.2 10*3/uL 4.3-11.0 Blood erythrocytes automated count (number/volume) 4.14 10*6/uL 4.35-5.85 Venous blood hemoglobin measurement (mass/volume) 12.8 g/dL 11.5-16.0 Blood hematocrit (volume fraction) 38 % 35-52 Automated erythrocyte mean corpuscular volume 93 [foz_us] 80-99 Automated erythrocyte mean corpuscular hemoglobin (mass per erythrocyte) 31 pg 25-34 Automated erythrocyte mean corpuscular hemoglobin concentration measurement (mass/volume) 33 g/dL 32-36 Automated erythrocyte distribution width ratio 12.5 % 10.0- 14.5 Automated blood platelet count (count/volume) 260 10*3/uL 130-400 Automated blood platelet mean volume measurement 10.3 [foz_us] 7.4-10.4 Automated blood neutrophils/100 leukocytes 58 % 42-75 Automated blood lymphocytes/100 leukocytes 34 % 12-44 Blood monocytes/100 leukocytes 6 % 0-12 Automated blood eosinophils/100 leukocytes 1 % 0-10 Automated blood basophils/100 leukocytes 0 % 0-10 Blood neutrophils automated count (number/volume) 7.6 10*3 1.8-7.8 Blood lymphocytes automated count (number/volume) 4.5 10*3 1.0-4.0 Blood monocytes automated count (number/volume) 0.8 10*3 0.0- 1.0 Automated eosinophil count 0.2 10*3/uL 0.0-0.3 Automated blood basophil count (count/volume) 0.1 10*3/uL 0.0-0.1 Comprehensive metabolic panel - 12/16/16 18:35 Serum or plasma sodium measurement (moles/volume) 141 mmol/L 135-145 Serum or plasma potassium measurement (moles/volume) 3.6 mmol/L 3.6-5.0 Serum or plasma chloride measurement (moles/volume) 106 mmol/L 98-107 Carbon dioxide 27 mmol/L 21-32 Serum or plasma anion gap determination (moles/volume) 8 mmol/L 5-14 Serum or plasma urea nitrogen measurement (mass/volume) 9 mg/dL 7-18 Serum or plasma creatinine measurement (mass/volume) 0.79 mg/dL 0.60-1.30 Serum or plasma urea nitrogen/creatinine mass [...] Serum or plasma aspartate aminotransferase measurement (enzymatic activity/volume) 9 U/L 5-34 Serum or plasma alanine aminotransferase measurement (enzymatic activity/volume) 10 U/L 0-55 Serum or plasma protein measurement (mass/volume) 6.4 g/dL 6.4-8.2 Serum or plasma albumin measurement (mass/volume) 3.7 g/dL 3.2-4.5 Complete urinalysis with reflex to culture - 12/16/16 19:52 Urine color determination YELLOW NRG Urine clarity determination SLIGHTLY CLOUDY NRG Urine pH measurement by test strip 7 5-9 Specific gravity of urine by test strip [...] sediment leukocyte count by microscopy (number/high power field) [HPF] NRG Bacteria detection in urine sediment [...] resistant Staphylococcus aureus (MRSA) screening culture - 12/17/16 11:50 Methicillin resistant Staphylococcus aureus (MRSA) screening culture NEG NRG Blood type T Indirect antibody screen panel - 12/19/16 10:47 ABO+Rh group AP NRG Transfusion band number [id number] NRG Blood group antibody screen NEGATIVE NRG Urine beta human chorionic gonadotropin (hCG) measurement - 12/19/16 11:25 Urine beta human chorionic gonadotropin (hCG) measurement NEGATIVE NEGATIVE Complete urinalysis with reflex to culture - 08/02/17 00:50 Urine color determination YELLOW NRG Urine clarity determination CLEAR NRG Urine pH measurement by test strip 7 5-9 Specific gravity of urine by test strip 1.010 1.016-1.022 Urine protein assay by test strip, [...] NORMAL Urine leukocyte esterase detection by dipstick NEGATIVE NEGATIVE Automated urine sediment erythrocyte count by microscopy (number/high power field) NONE NRG Automated urine sediment leukocyte count by microscopy (number/high power field) RARE NRG Bacteria detection in urine sediment by light microscopy FEW NRG Squamous epithelial cells detection in urine sediment by light microscopy 10-25 NRG Crystals detection in urine sediment by light microscopy NONE NRG Casts detection in urine sediment by light microscopy NONE NRG Mucus detection in urine sediment by light microscopy NEGATIVE NRG Complete urinalysis with reflex to culture YES NRG Bacterial urine culture - 08/02/17 00:50 URINE CULTURE RESULTS MORE THAN 3 ISOLATES NRG Complete blood count (CBC) with automated white blood cell (WBC) differential - 08/02/17 01:30 Blood leukocytes automated count (number/volume) 13.0 10*3/uL 4.3-11.0 Blood erythrocytes automated count (number/volume) 4.03 10*6/uL 4.35-5.85 Venous blood hemoglobin measurement (mass/volume) 12.6 g/dL 11.5-16.0 Blood hematocrit (volume fraction) 37 % 35-52 Automated erythrocyte mean corpuscular volume 92 [foz_us] 80-99 Automated erythrocyte mean corpuscular hemoglobin (mass per erythrocyte) 31 pg 25-34 Automated erythrocyte mean corpuscular hemoglobin concentration measurement (mass/volume) 34 g/dL 32-36 Automated erythrocyte distribution width ratio 12.7 % 10.0- 14.5 Automated blood platelet count (count/volume) 276 10*3/uL 130-400 Automated blood platelet mean volume measurement 9.7 [foz_us] 7.4-10.4 Automated blood neutrophils/100 leukocytes 67 % 42-75 Automated blood lymphocytes/100 leukocytes 24 % 12-44 Blood monocytes/100 leukocytes 7 % 0-12 Automated blood eosinophils/100 leukocytes 2 % 0-10 Automated blood basophils/100 leukocytes 0 % 0-10 Blood neutrophils automated count (number/volume) 8.8 10*3 1.8-7.8 Blood lymphocytes automated count (number/volume) 3.1 10*3 1.0-4.0 Blood monocytes automated count (number/volume) 0.9 10*3 0.0- 1.0 Automated eosinophil count 0.2 10*3/uL 0.0-0.3 Automated blood basophil count (count/volume) 0.0 10*3/uL 0.0-0.1 Comprehensive metabolic panel - 08/02/17 01:30 Serum or plasma sodium measurement (moles/volume) 139 mmol/L 135-145 Serum or plasma potassium measurement (moles/volume) 3.7 mmol/L 3.6-5.0 Serum or plasma chloride measurement (moles/volume) 104 mmol/L 98-107 Carbon dioxide 26 mmol/L 21-32 Serum or plasma anion gap determination (moles/volume) 9 mmol/L 5-14 Serum or plasma urea nitrogen measurement (mass/volume) 18 mg/dL 7-18 Serum or plasma creatinine measurement (mass/volume) 0.77 mg/dL 0.60-1.30 Serum or plasma urea nitrogen/creatinine mass ratio 23 NRG Serum or plasma creatinine measurement with calculation of estimated glomerular filtration rate > NRG Serum or plasma glucose measurement (mass/volume) 111 mg/dL 70-105 Serum or plasma calcium measurement (mass/volume) 8.9 mg/dL 8.5-10.1 Serum or plasma total bilirubin measurement (mass/volume) 0.2 mg/dL 0.1-1.0 Serum or plasma alkaline phosphatase measurement (enzymatic activity/volume) 86 U/L 40-136 Serum or plasma aspartate aminotransferase measurement (enzymatic activity/volume) 12 U/L 5-34 Serum or plasma alanine aminotransferase measurement (enzymatic activity/volume) 8 U/L 0-55 Serum or plasma protein measurement (mass/volume) 6.9 g/dL 6.4-8.2 Serum or plasma albumin measurement (mass/volume) 3.7 g/dL 3.2-4.5 Serum or plasma amylase measurement (enzymatic activity/volume) - 08/02/17 01:30 Serum or plasma amylase measurement (enzymatic activity/volume) 49 U/L 25-125 Lipase - 08/02/17 01:30 Lipase 9 U/L 8-78 CMP - 01/28/18 10:10 GLUCOSE 109 mg/dL 65-99 UREA NITROGEN (BUN) 11 mg/dL 7-25 CREATININE 0.77 mg/dL 0.50-1.05 eGFR NON-AFR. [place]ITT[place] 89 mL/min/1.73m2 > OR=60 eGFR 103 mL/min/1.73m2 > OR=60 BUN/CREATININE RATIO NOT APPLICABLE (calc) 6-22 SODIUM 141 mmol/L 135-146 POTASSIUM 4.1 mmol/L 3.5-5.3 CHLORIDE 108 mmol/L 98-110 CARBON DIOXIDE 28 mmol/L 20-31 CALCIUM 9.3 mg/dL 8.6-10.4 PROTEIN, TOTAL 6.9 g/dL 6.1-8.1 ALBUMIN 4.1 g/dL 3.6-5.1 GLOBULIN 2.8 g/dL (calc) 1.9-3.7 ALBUMIN/GLOBULIN RATIO 1.5 (calc) 1.0-2.5 BILIRUBIN, TOTAL 0.2 mg/dL 0.2-1.2 ALKALINE PHOSPHATASE 81 U/L 33-130 AST 10 U/L 10-35 ALT 8 U/L 6-29 CBC - 12/23/18 11:32 WHITE BLOOD CELL COUNT 10.7 Thousand/uL 3.8-10.8 RED BLOOD CELL COUNT 4.45 Million/uL 3.80-5.10 HEMOGLOBIN 12.9 g/dL 11.7-15.5 HEMATOCRIT 39.7 % 35.0-45.0 MCV 89.2 fL 80.0-100.0 MCH 29.0 pg 27.0-33.0 MCHC 32.5 g/dL 32.0-36.0 RDW 12.5 % 11.0-15.0 PLATELET COUNT 343 Thousand/uL 140-400 MPV 10.1 fL 7.5-12.5 ABSOLUTE NEUTROPHILS 5778 cells/uL 5818-0038 ABSOLUTE LYMPHOCYTES 4002 cells/uL 850-3900 ABSOLUTE MONOCYTES 685 cells/uL 200-950 ABSOLUTE EOSINOPHILS 182 cells/uL 15-500 ABSOLUTE BASOPHILS 54 cells/uL 0-200 NEUTROPHILS 54 % NRG LYMPHOCYTES 37.4 % NRG MONOCYTES 6.4 % NRG EOSINOPHILS 1.7 % NRG BASOPHILS 0.5 % NRG C DIFFICILE AG + TOXIN A/B. - 01/15/19 12:00 C DIFFICILE AG + TOXIN A/B. TNP NRG Stool occult blood screen - 01/15/19 12:00 Stool gastrointestinal hemoglobin detection NEGATIVE NEGATIVE Stool bacteria identification by culture - 01/15/19 12:00 [id number] - 01/15/19 12:00 Complete blood count (CBC) with automated white blood cell (WBC) differential - 01/22/19 20:40 Blood leukocytes automated count (number/volume) 10.4 10*3/uL 4.3-11.0 Blood erythrocytes automated count (number/volume) 4.44 10*6/uL 4.35-5.85 Venous blood hemoglobin measurement (mass/volume) 13.4 g/dL 11.5-16.0 Blood hematocrit (volume fraction) 38 % 35-52 Automated erythrocyte mean corpuscular volume 85 [foz_us] 80-99 Automated erythrocyte mean corpuscular hemoglobin (mass per erythrocyte) 30 pg 25-34 Automated erythrocyte mean corpuscular hemoglobin concentration measurement (mass/volume) 35 g/dL 32-36 Automated erythrocyte distribution width ratio 12.3 % 10.0- 14.5 Automated blood platelet count (count/volume) 324 10*3/uL 130-400 Automated blood platelet mean volume measurement 10.6 [foz_us] 7.4-10.4 Automated blood neutrophils/100 leukocytes 52 % 42-75 Automated blood lymphocytes/100 leukocytes 38 % 12-44 Blood monocytes/100 leukocytes 8 % 0-12 Automated blood eosinophils/100 leukocytes 2 % 0-10 Automated blood basophils/100 leukocytes 1 % 0-10 Blood neutrophils automated count (number/volume) 5.4 10*3 1.8-7.8 Blood lymphocytes automated count (number/volume) 3.9 10*3 1.0-4.0 Blood monocytes automated count (number/volume) 0.8 10*3 0.0- 1.0 Automated eosinophil count 0.2 10*3/uL 0.0-0.3 Automated blood basophil count (count/volume) 0.1 10*3/uL 0.0-0.1 Complete urinalysis with reflex to culture - 01/22/19 20:40 Urine color determination YELLOW NRG Urine clarity determination CLEAR NRG Urine pH measurement by test strip 6 5-9 Specific gravity of urine by test strip 1.020 1.016-1.022 Urine protein assay by test strip, semi-quantitative 1+ NEGATIVE Urine glucose detection by automated test [...] sediment leukocyte count by microscopy (number/high power field) NONE NRG Bacteria detection in urine sediment by light microscopy TRACE NRG Squamous epithelial cells detection in urine sediment by light microscopy 0-2 NRG Crystals detection in urine sediment by light microscopy NONE NRG Casts detection in urine sediment by light microscopy PRESENT NRG Mucus detection in urine sediment by light microscopy NEGATIVE NRG Complete urinalysis with reflex to culture NO NRG Hyaline casts detection in urine sediment by light microscopy RARE NRG Comprehensive metabolic panel - 01/22/19 20:40 Serum or plasma sodium measurement (moles/volume) 136 mmol/L 135-145 Serum or plasma potassium measurement (moles/volume) 3.4 mmol/L 3.6-5.0 Serum or plasma chloride measurement (moles/volume) 101 mmol/L 98-107 Carbon dioxide 25 mmol/L 21-32 Serum or plasma anion gap determination (moles/volume) 10 mmol/L 5-14 Serum or plasma urea nitrogen measurement (mass/volume) 16 mg/dL 7-18 Serum or plasma creatinine measurement (mass/volume) 0.85 mg/dL 0.60-1.30 Serum or plasma urea nitrogen/creatinine mass ratio 19 NRG Serum or plasma creatinine measurement with calculation of estimated glomerular filtration rate > NRG Serum or plasma glucose measurement (mass/volume) 130 mg/dL 70-105 Serum or plasma calcium measurement (mass/volume) 9.9 mg/dL 8.5-10.1 Serum or plasma total bilirubin measurement (mass/volume) 0.4 mg/dL 0.1-1.0 Serum or plasma alkaline phosphatase measurement (enzymatic activity/volume) 107 U/L 40-136 Serum or plasma aspartate aminotransferase measurement (enzymatic activity/volume) 16 U/L 5-34 Serum or plasma alanine aminotransferase measurement (enzymatic activity/volume) 9 U/L 0-55 Serum or plasma protein measurement (mass/volume) 7.8 g/dL 6.4-8.2 Serum or plasma albumin measurement (mass/volume) 4.4 g/dL 3.2-4.5 CALCIUM CORRECTED 9.6 mg/dL 8.5-10.1 Lipase - 01/22/19 20:40 Lipase 12 U/L 8-78 Encounters ACCT No. Visit Date/Time Discharge Status Pt. Type Provider Facility Loc./Unit Complaint [id number] 01/20/2019 11:00:00 01/20/2019 23:59:59 CLS Outpatient LETTY WILKINS APRN [facility] [place] [id number] 12/23/2018 10:00:00 Document Registration [id number] 01/28/2018 09:20:00 Document Registration [id number] 02/02/2019 05:51:00 02/02/2019 14:33:00 DIS Outpatient AN LAYTON DO [facility] PREOP COLONOSCOPY/EGD [id number] 01/22/2019 20:25:00 01/22/2019 23:04:00 DIS Outpatient CHEYENNE ECHOLS APRN [facility] ER ABD PAIN [id number] 01/19/2019 13:45:00 01/19/2019 23:59:59 CLS Preadmit AN LAYTON DO [facility] RAD LLQ PAIN [id number] 01/11/2019 14:58:00 01/11/2019 23:59:59 CLS Outpatient AN LAYTON DO [facility] LAB LLQ PAIN [id number] 08/02/2017 00:39:00 08/02/2017 04:19:00 DIS Emergency BRANDY CASTELLON DO [facility] ER LOWER LEFT SIDE PAIN [id number] 12/19/2016 10:32:00 12/19/2016 16:30:00 DIS Outpatient PATRIA EASTON DO [facility] SDC RIGHT OVARIAN MASS [id number] 12/17/2016 11:34:00 12/17/2016 12:16:00 DIS Outpatient PATRIA EASTON DO [facility] PREOP RIGHT OVARIAN MASS [id number] 12/16/2016 17:32:00 12/16/2016 20:53:00 DIS Emergency CAYDEN GUTIERRES MD [facility] ER OVARIAN CYST/PAIN/NAUSEA [id number] 12/13/2016 13:11:00 12/13/2016 15:15:00 DIS Emergency ONESIMOCHEYENNE ORGAN PIPE VOICER [facility] ER RIGHT SIDE PAIN [id number] 11/28/2016 06:54:00 11/28/2016 11:30:00 DIS Outpatient PATRIA EASTON DO [facility] ABNORMAL UTERINE BLEEDING AND MENNORRHAGIA [id number] 11/26/2016 08:59:00 11/26/2016 13:13:00 DIS Outpatient PATRIA EASTON DO [facility] PREOP HYSTEROSCOPY WITH ABLATOIN AND D C [id number] 11/14/2016 13:49:00 11/14/2016 23:59:59 CLS Outpatient HAO PHILLIPS MD [facility] RAD SCREENING BREAST EXAMINATION [id number] 10/09/2016 10:02:00 10/09/2016 23:59:59 CLS Outpatient LETTY WILKINS GASOLINE ENGINE INSPECTOR [facility] RAD UNSPECIFIED OVARIAN CYST,RIGHT SIDE [id number] 01/11/2016 15:31:00 01/11/2016 23:59:59 CLS Outpatient LETTY WILKINS GASOLINE ENGINE INSPECTOR [facility] RAD COMPLEX CYST OF LEFT OVARY [id number] 12/19/2015 11:46:00 12/19/2015 14:10:00 DIS Outpatient AN LAYTON DO [facility] SCREENING [id number] 12/14/2015 05:36:00 12/14/2015 13:39:00 DIS Outpatient AN LAYTON DO [facility] PREOP [id number] 11/20/2015 14:00:00 11/20/2015 23:59:59 CLS Outpatient KAY NARANJO ORGAN PIPE VOICER [facility] RAD [id number] 11/10/2015 08:04:00 11/10/2015 23:59:59 CLS Outpatient KAY NARANJO ORGAN PIPE VOICER [facility] RAD [id number] 06/07/2015 10:25:00 06/07/2015 15:20:00 DIS Outpatient PATRIA CABRAL MD [facility] [id number] 06/02/2015 08:08:00 06/02/2015 23:59:59 CLS Outpatient PATRIA CABRAL MD [facility] PREOP RIGHT SHOULDER TORN ROTATOR CUFF [id number] 05/12/2015 10:42:00 05/12/2015 23:59:59 CLS Outpatient VITA VINES GASOLINE ENGINE INSPECTOR [facility] RAD [id number] 04/17/2015 14:58:00 05/09/2015 08:43:00 DIS Outpatient VITA VINES GASOLINE ENGINE INSPECTOR [facility] REHAB [id number] 03/27/2015 15:45:00 04/02/2015 00:01:00 DIS Outpatient VITA VINES GASOLINE ENGINE INSPECTOR [facility] REHAB [id number] 08/08/2014 14:22:00 08/08/2014 23:59:59 CLS Outpatient LETTY WILKINS GASOLINE ENGINE INSPECTOR [facility] RAD [id number] 07/29/2014 14:30:00 07/29/2014 23:59:59 CLS Outpatient SHEILA WILKINSA GASOLINE ENGINE INSPECTOR [facility] RAD [id number] 05/20/2014 11:15:00 05/20/2014 23:59:59 CLS Outpatient JEFFERY HALL SLIP COVER ESTIMATOR [facility] RAD [id number] 04/12/2013 10:19:00 04/12/2013 23:59:59 CLS Outpatient SHEILA WILKINSA GASOLINE ENGINE INSPECTOR [facility] RAD [id number] 02/05/2019 09:40:00 PEN Preadmit AN LAYTON DO [facility] ENDO LLQ ABD PAIN/LUQ ABD PAIN [id number] 06/02/2015 08:20:00 Document Registration [id number] 08/08/2014 14:21:00 Document Registration [id number] 08/08/2014 14:21:00 Document Registration [id number] 08/08/2014 14:21:00 Document Registration [id number] 08/08/2014 14:20:00 Document Registration [id number] 09/24/2011 08:05:00 Document Registration [id number] 09/02/2011 10:22:00 Document Registration [id number] 07/09/2011 10:24:00 Document Registration [id number] 07/01/2011 14:03:00 Document Registration [id number] 10/31/2010 12:18:00 Document Registration [id number] 08/29/2010 13:30:00 Document Registration [id number] 10/16/2009 08:14:00 Document Registration [id number] 12/08/2014 12:52:00 12/08/2014 23:59:59 CLS Outpatient MAYUR LSCS, KVNG Rangel [id number] 11/08/2014 12:54:00 11/08/2014 23:59:59 CLS Outpatient MAYUR LSCS, KVNG Rangel [id number] 08/12/2014 13:04:00 08/12/2014 23:59:59 CLS Outpatient MAYUR LSCS, KVNG Rangel [id number] 07/28/2014 17:15:00 07/28/2014 23:59:59 CLS Outpatient FRANKYLETTY BAIG APRN [id number] 07/15/2014 14:12:00 07/15/2014 23:59:59 CLS Outpatient MAYUR LSCS, KVNG Rangel [id number] 06/21/2014 13:21:00 06/21/2014 23:59:59 CLS Outpatient WANG ORGAN PIPE VOICERROBERT Vazquez [id number] 06/14/2014 12:59:00 06/14/2014 23:59:59 CLS Outpatient MAYUR LSCS, KVNG Rangel [id number] 05/24/2014 13:02:00 05/24/2014 23:59:59 CLS Outpatient MAYUR LSCS, KVNG R [id number] 05/23/2014 11:23:00 05/23/2014 23:59:59 CLS Outpatient FRANKYANTONIA BAIG APRNNDA S [id number] 03/22/2014 13:28:00 03/22/2014 23:59:59 CLS Outpatient WANG ROBERT DAY [id number] 03/22/2014 13:28:00 03/22/2014 23:59:59 CLS Outpatient WANG ROBERT DAY [id number] 03/17/2014 12:58:00 03/17/2014 23:59:59 CLS Outpatient MAYUR LSCS, KVNG Rangel [id number] 02/15/2014 13:03:00 02/15/2014 23:59:59 CLS Outpatient MAYUR LSCS, KVNG R [id number] 01/18/2014 13:04:00 01/18/2014 23:59:59 CLS Outpatient MAYUR LSCS, KVNG R [id number] 01/06/2014 12:49:00 01/06/2014 23:59:59 CLS Outpatient NATHALIE TORO MD [id number] 12/17/2013 12:57:00 12/17/2013 23:59:59 CLS Outpatient MAYUR LSCS, KVNG R [id number] 11/25/2013 15:49:00 11/25/2013 23:59:59 CLS Outpatient NATHALIE TORO MD [id number] 11/04/2013 10:18:00 11/04/2013 23:59:59 CLS Outpatient FRANKY DAY LETTY S [id number] 10/21/2013 12:50:00 10/21/2013 23:59:59 CLS Outpatient MAYUR LSCS, KVNG Rangel [id number] 10/08/2013 12:54:00 10/08/2013 23:59:59 CLS Outpatient MAYUR LSCS, KVNG R [id number] 08/24/2013 12:56:00 08/24/2013 23:59:59 CLS Outpatient MAYUR LSCS, KVNG R [id number] 08/13/2013 11:02:00 08/13/2013 23:59:59 CLS Outpatient NATHALIE TORO MD [id number] 08/13/2013 11:02:00 08/13/2013 23:59:59 CLS Outpatient EDUARDO COBB JR [id number] 07/02/2013 13:07:00 07/02/2013 23:59:59 CLS Outpatient MAYUR LSCS, KVNG R [id number] 06/17/2013 13:16:00 06/17/2013 23:59:59 CLS Outpatient MAYUR LSCS, KVNG Rangel [id number] 05/11/2013 13:05:00 05/11/2013 23:59:59 CLS Outpatient MAYUR LSCS, KVNG R [id number] 11/24/2012 15:00:00 11/24/2012 23:59:59 CLS Outpatient [id number] 11/10/2012 15:02:00 11/10/2012 23:59:59 CLS Outpatient [id number] 10/27/2012 14:59:00 10/27/2012 23:59:59 CLS Outpatient KVNG KNIGHT Claire [id number] 10/08/2012 12:38:00 10/08/2012 23:59:59 CLS Outpatient [id number] 09/17/2012 12:56:00 09/17/2012 23:59:59 CLS Outpatient [id number] 08/20/2012 13:00:00 08/20/2012 23:59:59 CLS Outpatient KVNG KNIGHT Claire [id number] 08/05/2012 11:00:00 08/05/2012 23:59:59 CLS Outpatient WILLARD GOEL DDS [id number] 06/18/2012 09:06:00 06/18/2012 23:59:59 CLS Outpatient WILLARD GOEL DDS [id number] 04/06/2013 13:44:00 Document Registration [id number] 04/06/2013 13:44:00 Document Registration [id number] 02/11/2013 12:55:00 Document Registration [id number] 01/28/2013 13:06:00 Document Registration [id number] 01/07/2013 13:05:00 Document Registration [id number] 12/24/2012 13:01:00 Document Registration [id number] 12/09/2012 12:57:00 Document Registration
[2019-02-05 08:35] VITALS: BP 116/80
[2019-02-05 09:05] VITALS: BP 132/79
[2019-02-05] MEDS ORDERED: PANT40TA2 PO (09:59)
--- NOTE | 2019-02-05 09:59 | Discharge Inst-Simple/Standard ---
Discharge Inst-Standard Discharge Medications New, Converted or Re-Newed RX: Transmitted to Pharmacy Patient Instructions/Follow Up Plan of Care/Instructions/FU: 2-3 weeks Elizabeth Activity as Tolerated: Yes Discharge Diet: Regular Diet AN LAYTON DO Feb 05, 2019 09:59
--- NOTE | 2019-02-05 10:01 | Progress Note-Post Operative ---
Post-Operative Progess Note Surgeon (s)/[employer] Vice President (s) Surgeon AN LAYTON DO [employer] Vice President: na Pre-Operative Diagnosis luq, llq abdominal pain. Post-Operative Diagnosis gastritis c erosions, diverticulosis Procedure & Operative Findings Date of Procedure 02/05/19 Procedure Performed/Findings egd c biopsies, colonoscopy Anesthesia Type per feed handler Estimated Blood Loss Estimated blood loss (mL): none Specimens/Packing Specimens Removed antrum, ge AN LAYTON DO Feb 05, 2019 10:01
--- NOTE | 2019-02-05 14:25 | Anesthesia-General Post-Op ---
MAC Patient Condition Mental Status/LOC: Same as Preop Cardiovascular: Satisfactory Nausea/Vomiting: Absent Respiratory: Satisfactory Pain: Controlled Complications: Absent Post Op Complications Complications None Follow Up Care/Instructions Patient Instructions None needed. Anesthesiology Discharge Order Discharge Order Patient was seen this morning after the procedure and she was doing well, no complaints, stable vital signs, no apparent adverse anesthesia problems. TERRY CALIX DO Feb 05, 2019 14:25
--- NOTE | 2019-02-05 16:01 | OPERATIVE REPORT ---
DATE OF SERVICE: 02/05/2019 PREOPERATIVE DIAGNOSIS: Left upper quadrant, left lower quadrant abdominal pain. POSTOPERATIVE DIAGNOSIS: Gastritis with erosions, diverticulosis. PROCEDURE: EGD with biopsies, colonoscopy. SURGEON: An Johnson DO ANESTHESIA: Per BILL PEDDLER. ESTIMATED BLOOD LOSS: None. COMPLICATIONS: None. INDICATIONS: The patient is a 53-year-old female who has been having left upper quadrant, left lower quadrant abdominal pain. She understands risks and benefits of procedure and wished to proceed with procedure. Consent was signed and on the chart. DESCRIPTION OF PROCEDURE: The patient was taken to the endoscopy suite, placed in left lateral recumbent position. Timeout was performed. Scope was inserted into the mouth, down the esophagus, stomach and the duodenum without difficulty. There were no polyps, masses or ulcerations in the duodenum. Scope was slowly retracted back into the stomach where it was further insufflated. Erythematous change consistent with gastritis and some erosion in the antrum were present. Biopsy of the antrum was obtained. Scope was then retracted back slowly and retroflexed noting no other pathology. Scope was returned to its normal position, slowly withdrawn to the distal esophagus. Biopsy of the GE junction was obtained. There are no polyps, mass or ulcerations. The scope was then slowly retracted back to completely remove, noting no other pathology. Digital rectal exam was performed. There were no palpable polyps, masses or ulcerations. Scope was inserted in the rectum and advanced all the way to the cecum with minimal difficulty. The patient will be repositioned multiple times, but made it to the cecum. Prep was adequate. Scope was then slowly retracted back. There were no polyps, masses or ulcerations in the cecum, ascending, transverse and descending colon. Within the sigmoid colon minimal to moderate amount of diverticulosis is present. Scope was continued slowly retracted back to the rectum, where it was also retroflexed noting no other pathology. The patient tolerated procedure well without any complications. She was taken to recovery room in stable condition. RECOMMENDATIONS: We will start her on omeprazole and start Protonix 40 mg daily. She will follow up in the office in two to three weeks to discuss pathology results and see how her symptoms are doing at that time. The patient recommended high fiber diet due to diverticulosis. She will need a repeat colonoscopy in 10 years unless family history of colon cancers or personal history of polyps, which would then be 5 years. Any issues before that, will be seen at that time. Job ID: [id number] DocumentID: [id number] Dictated Date: 02/05/2019 10:05:52 Die Maintenance Date: 02/05/2019 16:01:03 Dictated By: AN JOHNSON DO
== END 2019-02-05 09:20 | disposition home or self-care (01) ==
LOC: ENDO 06:52
PROVIDERS: ATTEND Surgery
DX: K57.30 Diverticulosis of large intestine without perforation or abscess without bleeding (principal); K29.00 Acute gastritis without bleeding; K21.9 Gastro-esophageal reflux disease without esophagitis; I10 Essential (primary) hypertension; I34.1 Nonrheumatic mitral (valve) prolapse; Z87.891 Personal history of nicotine dependence

== ENCOUNTER → 2019-02-19 | Outpatient (CLI) | payer MEDICAID ==
[~2019-02-19] MED LIST changes: +PANT40TA2 PO
== END ==
LOC: RAD 08:29
PROVIDERS: ATTEND Nurse Practitioner Community Health
DX: Z12.31 Encounter for screening mammogram for malignant neoplasm of breast (principal)
CPT/HCPCS: 77067

== ENCOUNTER 2020-01-24 07:30 | Outpatient (RCR) | payer MEDICAID ==
[~2020-01-24] VITALS: Ht 170 cm; Wt 81.8 kg
[~2020-01-24 07:30] MED LIST changes: -OMEP20CA12 PO; +OMEP20CA18 PO
== END 2020-01-24 14:39 | disposition home or self-care (01) ==
LOC: PREOP 07:30
PROVIDERS: ATTEND Otolaryngology Otolaryngology/Facial Plastic Surgery
DX: Z01.812 Encounter for preprocedural laboratory examination (principal); Z11.59 Encounter for screening for other viral diseases; H65.20 Chronic serous otitis media, unspecified ear
CPT/HCPCS: 87635

== ENCOUNTER 2020-01-27 06:13 | Day surgery (SDC) | payer MEDICAID ==
[2020-01-27] VITALS (8 sets, daily range): BP systolic 108–180; BP diastolic 67–89
[~2020-01-27] VITALS: Ht 170 cm; Wt 81.8 kg
--- NOTE | 2020-01-27 06:20 | NUR ---
pt. hasn't had a period in 2 years, so no test was done
[2020-01-27] MEDS ORDERED: LACTATED RINGERS 1,000 ML IV PRN (06:21)
[2020-01-27] MEDS ORDERED: SCOPOLAMINE 1.5 MG (TRANSDERM-SCOP) PATCH ONE (06:57)
[2020-01-27] MEDS ORDERED: FAMOTIDINE 20MG/2ML IV (PEPCID) ONE (06:57)
[2020-01-27] MEDS ORDERED: ONDANSETRON 4 MG/2 ML (SDV) Z0FRAN ONE ×2 (06:57→07:56)
[2020-01-27] MEDS ORDERED: ONDANSETRON 4 MG/2 ML (SDV) Z0FRAN IV ONE (07:00)
[2020-01-27] MEDS ORDERED: SCOPOLAMINE 1.5 MG (TRANSDERM-SCOP) PATCH TOP ONE (07:00)
[2020-01-27] MEDS ORDERED: FAMOTIDINE 20MG/2ML IV (PEPCID) IV ONE (07:00)
--- NOTE | 2020-01-27 07:12 | Progress Note-Pre Operative ---
Pre-Operative Progress Note H&P Reviewed The H&P was reviewed, patient examined and no changes noted. Date Seen by Provider: Jan 27, 2020 Time Seen by Provider: 06:30 Date H&P Reviewed: Jan 27, 2020 Time H&P Reviewed: 06:30 Pre-Operative Diagnosis: PATRIA Robles MD Jan 27, 2020 07:12
[2020-01-27] MEDS ORDERED: MIDAZOLAM 2 MG/2 ML (VERSED) VIAL ONE (07:23)
[2020-01-27] MEDS ORDERED: fentaNYL INJECTION 100 MCG/2 ML AMP ONE (07:24)
[2020-01-27] MEDS ORDERED: proPOfol 200 MG/20 ML (DIPRIVAN) VIAL IV ONE (07:56)
[2020-01-27] MEDS ORDERED: LIDOCAINE PF 2% 5 ML (XYLOCAINE) VIAL ONE (07:56)
[2020-01-27] MEDS ORDERED: DEXAMETHASONE 10 MG/ML (DECADRON) 1 ML VIAL ONE (07:56)
[2020-01-27] MEDS ORDERED: SEVOFLURANE (ULTANE) 15 ML INHAL SOLN ONE ×3 (07:56)
--- NOTE | 2020-01-27 07:59 | Progress Note-Post Operative ---
Post-Operative Progess Note Surgeon (s)/Service Control Operator (s) Surgeon PATRIA KAMARA MD Service Control Operator n/a Pre-Operative Diagnosis Bilat SHANNAN Post-Operative Diagnosis same Post-Op Procedure Note Date of Procedure: Jan 27, 2020 Name of Procedure Performed: BMT, Right TM Patch Description & Findings Description and Findings: n/a Anesthesia Type mask Estimated Blood Loss minimal Packing none. Specimen(s) collected/removed none PATRIA KAMARA MD Jan 27, 2020 07:59
[2020-01-27] MEDS ORDERED: morphine INJ 10 MG/ML 1ML (SYR OR VIAL) IVP ONE (08:00)
[2020-01-27] MEDS ORDERED: fentaNYL INJECTION 100 MCG/2 ML AMP IVP ONE (08:00)
[2020-01-27] MEDS ORDERED: ONDANSETRON 4 MG/2 ML (SDV) Z0FRAN IVP PRN (08:00)
[2020-01-27] MEDS ORDERED: MEPERIDINE (DEMEROL) INJ 50 MG/ML IVP ONE (08:00)
[2020-01-27] MEDS ORDERED: APAP 325 MG/10.15 ML LIQ (TYLENOL) UDC PO PRN (08:00)
[2020-01-27] MEDS ORDERED: CIPR5DRO OP (08:04)
--- OUTSIDE RECORDS SUMMARY | 2020-01-27 09:57 | XMS REPORT ---
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 Name Role Phone LETTY WILKINS Unavailable PROBLEMS Type Condition ICD9-CM Code ALO99-[place] Code Onset Dates Condition S tatus SNOMED Code Problem Hypertension I10 Active 5198320 3 Problem Generalized anxiety disorder F41.1 A ctive 485441450 Problem History of colon polyps Z86.010 Active 564358632 Problem History of diverticulitis Z87.19 Acti ve [id number] Problem Family history of diabetes mellitus Z83.3 Active 573270441 Problem Excessive and frequent menstruation with irregular cycle N92.1 Active 032740080 Problem Hot flashes N95.1 Active 50825752 8 Problem Gastroesophageal reflux disease with esophagitis K 21.0 Active 147534446 Problem History of ovarian cyst Z87.42 Active 15832187 Problem Diverticulitis K57.92 Active 81462 6006 Problem Dense breast tissue R92.2 Active 213516245 Problem Perimenopausal N95.1 Active 36027 8663519824 Problem Mitral valve prolapse I34.1 Active 294614582 Problem Abnormal uterine bleeding (AUB) N93.9 Active 30207898563663 Problem Tachycardia R00.0 Active 6889202 ALLERGIES No Information ENCOUNTERS Encounter Location Date Diagnosis [facility] [address] [facility] [id number] [address] [place] [phone] Jan, [facility] [address] [facility] [id number] [address] [place] [phone] Jan, [facility] [address] [facility] [id number] [address] [place] [id number] December, Generalized anxiety disorder F41.1 [facility] [address] [facility] [id number] [address] [place] [phone] December, [facility] [address] [id number] [address] [place] [id number] 14 Dec, 2019 Generalized anxiety disorder F41.1 and Bereavement Z63.4 [facility] [address] [id number] [address] [place] [id number] 30 Nov, 2019 Generalized anxiety disorder F41.1 and Bereavement Z63.4 [facility] [address] [id number] [address] [place] [phone] 16 Nov, 2019 Generalized anxiety disorder F41.1 and Bereavement Z63.4 [facility] [address] [id number] [address] [place] [phone] 13 Nov, 2019 [facility] [address] [id number] [address] [place] [address] [id number] Nov, [facility] [address] [id number] [address] [place] [phone] Nov, Generalized anxiety disorder F41.1 [facility] [address] [id number] [address] [place] [phone] 30 Oct, 2019 Generalized anxiety disorder F41.1 and Bereavement Z63.4 [facility] [address] [id number] [address] [place] [id number] 16 Oct, 2019 Acute non-recurrent sinusiti s, unspecified location J01.90 [facility] [address] [id number] [address] [place] [phone] 05 Oct, 2019 Acute non-recurrent frontal sinusitis J01.10 [facility] [address] [id number] [address] [place] [phone] 27 Sep, 2019 Generalized anxiety disorder F41.1 and Bereavement Z63.4 [facility] [address] [id number] [address] [place] [phone] 11 Sep, 2019 Generalized anxiety disorder F41.1 and Bereavement Z63.4 [facility] [address] [id number] [address] [place] [id number] 15 Aug, 2019 Generalized anxiety disorder F41.1 and Bereavement Z63.4 [facility] [address] [facility] [id number] [address] [place] [phone] Aug, Generalized anxiety disorder F41.1 [facility] [address] [facility] [id number] [address] [place] [phone] 06 Aug, 2019 Viral upper respiratory trac t infection J06.9 [facility] [address] [facility] [id number] [address] [place] [phone] Jul, Generalized anxiety disorder F41.1 and Bereavement Z63.4 [facility] [address] [facility] [id number] [address] [place] [phone] Jul, Acute non-recurrent frontal sinusitis J01.10 [facility] [address] [facility] [id number] [address] [place] [phone] Jul, [facility] [address] [facility] [id number] [address] [place] [id number] Jul, Sore throat J02.9 and Uvulit is K12.2 [facility] [address] [facility] [id number] [address] [place] [id number] Jul, Generalized anxiety disorder F41.1 [facility] [address] [facility] [id number] [address] [address] Jul, Caries K02.9 [facility] [address] [facility] [id number] [address] [place] [id number] Jun, Generalized anxiety disorder F41.1 [facility] [address] [facility] [id number] [address] [place] [phone] Jun, Generalized anxiety disorder F41.1 and Bereavement Z63.4 [facility] [address] [facility] [id number] [address] [place] [phone] May, Generalized anxiety disorder F41.1 [facility] [address] [facility] [id number] [address] [place] [id number] May, Dysuria R30.0 [facility] [address] [facility] [id number] [address] [place] [phone] May, Generalized anxiety disorder F41.1 and Bereavement Z63.4 [facility] [address] [facility] [id number] [address] [place] [phone] May, [facility] [address] [facility] [id number] [address] [place] [phone] Apr, Generalized anxiety disorder F41.1 and Bereavement Z63.4 [facility] [address] [facility] [id number] [address] [place] [phone] Apr, Generalized anxiety disorder F41.1 [facility] [address] [facility] [id number] [address] [place] [address] Mar, Caries K02.9 ; Dental examin ation Z01.20 ; Periodontitis K05.30 and Oral health maintenance status requiring routine preventive dental care K08.9 [facility] [address] [facility] [id number] [address] [place] [phone] Mar, Generalized anxiety disorder F41.1 [facility] [address] [facility] [id number] [address] [place] [phone] Mar, Gastrointestinal hemorrhage associated with gastroduodenitis K29.91 [facility] [address] [facility] [id number] [address] [place] [phone] Mar, Generalized anxiety disorder F41.1 and Bereavement Z63.4 [facility] [address] [facility] [id number] [address] [place] [id number] Mar, [facility] [address] [facility] [id number] [address] [place] [phone] Mar, [facility] [address] [facility] [id number] [address] [place] [phone] Mar, [facility] [id number] [place] [phone] Mar, Tachycardia R00.0 and Essent ial hypertension I10 [facility] [address] [place] [id number] [address] [place] [phone] Feb, Generalized anxiety disorder F41.1 [facility] [address] [place] [id number] [address] [place] [phone] Feb, Generalized anxiety disorder F41.1 and Bereavement Z63.4 [facility] [address] [place] [id number] [address] [place] [id number] Feb, Generalized anxiety disorder F41.1 [facility] [address] [id number] Feb, Generalized anxiety disorder F41.1 and Bereavement Z63.4 [place] [address] [place] [id number] [address] [place] [phone] Jan, [facility] [address] [place] [id number] [address] [place] [phone] Jan, Breast cancer screening by trenton crenshaw Z12.31 [facility] [address] [address] Jan, Generalized anxiety disorder F41.1 and Bereavement Z63.4 [place] [address] [place] [id number] [address] [place] [id number] Jan, [facility] [address] [place] [id number] [address] [place] [id number] December, Generalized anxiety disorder F41.1 and Bereavement Z63.4 [facility] [address] [place] [id number] [address] [place] [phone] December, Diverticulitis K57.92 ; Dysu nick R30.0 ; Other constipation K59.09 and Lower abdominal pain R10.30 [facility] [address] [place] [id number] [address] [place] [id number] Nov, Diverticulitis K57.92 [facility] [address] [facility] [id number] [address] [place] [phone] Nov, Generalized anxiety disorder F41.1 and Bereavement Z63.4 [facility] [address] [facility] [id number] [address] [place] [phone] Nov, Generalized anxiety disorder F41.1 and Bereavement Z63.4 [facility] [address] [facility] [id number] [address] [place] [id number] Nov, Diverticulitis K57.92 [facility] [address] [facility] [id number] [address] [place] [id number] Oct, Diverticulitis K57.92 [facility] [address] [facility] [id number] [address] [place] [phone] Oct, Diverticulitis K57.92 [facility] [address] [facility] [id number] [address] [place] [id number] Oct, Generalized anxiety disorder F41.1 [facility] [address] [facility] [id number] [address] [place] [phone] Oct, Right lower quadrant abdomin al pain R10.31 and Diverticulitis K57.92 [facility] [address] [facility] [id number] [address] [place] [phone] Sep, Generalized anxiety disorder F41.1 and Bereavement Z63.4 [facility] [address] [facility] [id number] [address] [place] [phone] Aug, [facility] [address] [facility] [id number] [address] [place] [id number] Aug, Generalized anxiety disorder F41.1 and Bereavement Z63.4 [facility] [address] [id number] [address] [place] [address] Aug, Caries K02.9 [facility] [address] [facility] [id number] [address] [place] [phone] Jul, Generalized anxiety disorder F41.1 and Bereavement Z63.4 [facility] [address] [facility] [id number] [address] [place] [phone] Jul, Other acute gastritis withou t hemorrhage K29.00 ; Generalized anxiety disorder F41.1 ; Tachycardia R00.0 and Essential hypertension I10 [facility] [address] [facility] [id number] [address] [place] [phone] Jul, Generalized anxiety disorder F41.1 and Bereavement Z63.4 [facility] [address] [facility] [id number] [address] [place] [phone] Jun, Generalized anxiety disorder F41.1 and Bereavement Z63.4 [facility] [address] [facility] [id number] [address] [place] [phone] Jun, Generalized anxiety disorder F41.1 and Bereavement Z63.4 [facility] [address] [id number] [place] [address] Jun, Dental examination Z01.20 [facility] [address] [facility] [id number] [address] [place] [phone] May, Generalized anxiety disorder F41.1 and Bereavement Z63.4 [facility] [address] [facility] [id number] [address] [place] [id number] 08 May, 2018 Encounter for immunization Z 23 [facility] [address] [facility] [id number] [address] [place] [phone] 08 May, 2018 Generalized anxiety disorder F41.1 and Bereavement Z63.4 [facility] [address] [facility] [id number] [address] [place] [phone] May, [facility] [address] [facility] [id number] [address] [place] [phone] Apr, Generalized anxiety disorder F41.1 and Bereavement Z63.4 [facility] [address] [facility] [id number] [address] [place] [phone] 17 Apr, 2018 [facility] [address] [id number] [address] [place] [id number] Apr, Diverticulitis K57.92 [facility] [address] [id number] [address] [place] [phone] Apr, Generalized anxiety disorder F41.1 and Bereavement Z63.4 [facility] [address] [id number] [address] [place] [phone] Mar, [facility] [address] [id number] [address] [place] [phone] Mar, Diverticulitis K57.92 [facility] [address] [id number] [address] [place] [phone] Mar, Generalized anxiety disorder F41.1 and Bereavement Z63.4 [facility] [address] [id number] [address] [place] [phone] Mar, Hypertension I10 [facility] [address] [id number] [address] [place] [id number] Mar, Generalized anxiety disorder F41.1 and Bereavement Z63.4 [facility] [address] [id number] [address] [place] [phone] Feb, Generalized anxiety disorder F41.1 and Bereavement Z63.4 [facility] [address] [id number] [address] [place] [phone] Feb, [facility] [address] [id number] [address] [place] [phone] Feb, Generalized anxiety disorder F41.1 and Bereavement Z63.4 [facility] [address] [facility] [id number] [address] [place] [phone] Feb, Generalized anxiety disorder F41.1 and Bereavement Z63.4 [facility] [address] [facility] [id number] [address] [place] [phone] Jan, Hypertension I10 and Acute n on-recurrent maxillary sinusitis J01.00 [facility] [address] [id number] [address] [place] [phone] December, [facility] [address] [id number] [address] [place] [phone] December, Hypertension I10 [facility] [address] [id number] [address] [place] [id number] December, Generalized anxiety disorder F41.1 [facility] [address] [id number] [address] [place] [phone] Oct, Encounter for dental examina tion Z01.20 [facility] [address] [id number] [address] [place] [address] Oct, Encounter for dental examina tion Z01.20 [facility] [address] [id number] [address] [place] [address] Oct, Dental examination Z01.20 [facility] [address] [id number] [address] [place] [phone] Oct, Generalized anxiety disorder F41.1 [facility] [address] [id number] [address] [place] [address] Aug, Dental examination Z01.20 [facility] [address] [id number] [address] [place] [phone] Aug, Generalized anxiety disorder F41.1 [facility] [address] [id number] [address] [place] [phone] Aug, [facility] [address] [id number] [address] [place] [phone] Aug, Encounter for dental examina tion Z01.20 [facility] [address] [id number] [address] [place] [phone] Aug, Subacute maxillary sinusitis J01.00 [facility] [address] [id number] [place] [address] 22 Jul, 2017 Dental examination Z01.20 [facility] [address] [id number] [address] [place] [phone] 19 Jul, 2017 Generalized anxiety disorder F41.1 [facility] [address] [id number] [address] [place] [id number] 11 Jul, 2017 Diverticulitis K57.92 [facility] [address] [id number] [address] [place] [id number] 28 Jun, 2017 Encounter for immunization Z 23 [facility] [address] [id number] [address] [place] [address] 22 Jun, 2017 Dental examination Z01.20 [facility] [address] [id number] [address] [place] [phone] 14 Jun, 2017 Generalized anxiety disorder F41.1 [facility] [address] [id number] [address] [place] [address] 07 Jun, 2017 Dental examination Z01.20 [facility] [address] [id number] [address] [place] [phone] May, [facility] [address] [id number] [address] [place] [id number] May, Dental examination Z01.20 [facility] [address] [id number] [address] [place] [address] [id number] May, Dental examination Z01.20 [facility] [address] [id number] [address] [place] [address] May, Dental examination Z01.20 [facility] [address] [id number] [address] [place] [phone] May, [facility] [address] [id number] [address] [place] [phone] May, Generalized anxiety disorder F41.1 [facility] [address] [id number] [address] [place] [phone] May, Localized edema R60.0 ; Yeas t vaginitis B37.3 and Gastroesophageal reflux disease with esophagitis K21.0 [facility] [address] [id number] [address] [place] [address] [id number] Apr, Dental examination Z01.20 [facility] [address] [id number] [address] [place] [address] Apr, Dental examination Z01.20 [facility] [address] [id number] [address] [place] [address] 05 Apr, 2017 Dental examination Z01.20 [facility] [address] [id number] [address] [place] [phone] Mar, Dyspepsia R10.13 [facility] [address] [id number] [address] [place] [phone] Mar, Generalized anxiety disorder F41.1 [facility] [address] [id number] [address] [place] [address] Mar, Encounter for dental examina tion Z01.20 [facility] [address] [id number] [address] [place] [address] [id number] Mar, [facility] [address] [id number] [address] [place] [address] [id number] Mar, Dental examination Z01.20 [facility] [address] [id number] [address] [place] [phone] Feb, Hypertension I10 and Tachyca rdia R00.0 [facility] [address] [id number] [address] [place] [phone] Feb, [facility] [address] [id number] [address] [place] [phone] Feb, Generalized anxiety disorder F41.1 [facility] [address] [id number] [address] [place] [address] [id number] Feb, Dental examination Z01.20 [facility] [address] [id number] [address] [place] [phone] Jan, Generalized anxiety disorder F41.1 [facility] [address] [id number] [address] [place] [id number] December, Generalized anxiety disorder F41.1 [facility] [address] [id number] [address] [place] [id number] December, Encounter for dental examina tion Z01.20 [facility] [address] [id number] [address] [place] [phone] Nov, [facility] [address] [id number] [address] [place] [phone] Nov, [facility] [address] [id number] [address] [place] [phone] Nov, Generalized anxiety disorder F41.1 [facility] [address] [id number] [address] [place] [phone] Oct, [facility] [address] [id number] [address] [place] [phone] Oct, Dental examination Z01.20 [facility] [address] [id number] [address] [place] [phone] Oct, Vaginal dryness N89.8 [facility] [address] [id number] [address] [place] [phone] Oct, Pseudoseizures F44.5 [facility] [address] [id number] [address] [place] [phone] Oct, Generalized anxiety disorder F41.1 [facility] [address] [id number] [address] [place] [phone] Sep, Abnormal uterine bleeding (A UB) N93.9 ; Vaginal dryness N89.8 and Screening breast examination Z12.39 [facility] [address] [place] [id number] [address] [place] [phone] Sep, Dental examination Z01.20 [facility] [address] [id number] [address] [place] [id number] Sep, Generalized anxiety disorder F41.1 [facility] [address] [id number] [place] [id number] 06 Sep, 2016 Unspecified ovarian cyst, ri ght side N83.201 ; Unspecified ovarian cyst, left side N83.202 ; Yeast infection of the vagina B37.3 ; Mitral valve prolapse I34.1 and Hypertension I10 [facility] [id number] [place] [id number] Aug, Generalized anxiety disorder F41.1 [facility] [id number] [place] [phone] Jul, [facility] [address] [id number] Jul, Generalized anxiety disorder F41.1 [facility] [address] [id number] Jun, Generalized anxiety disorder F41.1 [facility] [address] [id number] 28 May, 2016 Encounter for immunization Z 23 [facility] [address] [id number] 17 May, 2016 Generalized anxiety disorder F41.1 and Depressive disorder, not elsewhere classified F32.9 [facility] [id number] [place] [phone] 28 Apr, 2016 Hypertension I10 [facility] [id number] [place] [phone] 22 Apr, 2016 Cervicalgia M54.2 [facility] [id number] [place] [phone] 12 Apr, 2016 Cervicalgia M54.2 [facility] [address] [id number] [address] [place] [phone] Mar, Generalized anxiety disorder F41.1 and Depressive disorder, not elsewhere classified F32.9 [facility] [address] [id number] [address] [place] [address] [id number] 14 Feb, 2016 Visit for dental examination Z01.20 [facility] [address] [id number] [address] [place] [id number] 11 Feb, 2016 Pseudoseizures F44.5 ; Migra ine without status migrainosus, not intractable, unspecified migraine type G43.909 and Essential hypertension I10 [facility] [address] [id number] [address] [place] [address] [id number] 06 Feb, 2016 Dental examination Z01.20 [facility] [address] [id number] [address] [place] [id number] 05 Feb, 2016 Generalized anxiety disorder F41.1 and Depressive disorder, not elsewhere classified F32.9 [facility] [address] [id number] [address] [place] [id number] Jan, Tachycardia R00.0 [facility] [address] [id number] [address] [place] [id number] December, Eustachian tube dysfunction, bilateral H69.83 [facility] [address] [id number] [address] [place] [id number] December, Generalized anxiety disorder F41.1 and Depressive disorder, not elsewhere classified F32.9 [facility] [address] [id number] [address] [place] [phone] Nov, [facility] [address] [id number] [address] [place] [phone] Nov, [facility] [address] [facility] [id number] [address] [place] [phone] Nov, Hypertension I10 ; Onychomyc osis B35.1 ; Encounter for screening for malignant [...] and Complex cyst of left ovary N83.29 [place] [address] [address] 14 Nov, 2015 Sinusitis J32.9 [place] [address] [address] Oct, Complex cyst of left ovary N 83.29 [place] [address] [address] Oct, Onychomycosis B35.1 [facility] [id number] [place] [address] [id number] Oct, Dental examination Z01.20 [place] [address] [address] 09 Oct, 2016 Well woman exam Z01.419 ; En counter for screening for malignant neoplasm of cervix [...] R92.2 and History of colon polyps Z86.010 [place] [address] [address] Oct, Generalized anxiety disorder F41.1 and Depressive disorder, not elsewhere classified F32.9 [place] [address] [address] Sep, Hypertension I10 and Onychom ycosis B35.1 [place] [address] [id number] [address] [place] [id number] 16 Sep, 2015 Skin tags, multiple acquired L91.8 [facility] [address] [id number] [address] [place] [phone] Aug, [facility] [address] [id number] [address] [place] [phone] Aug, [facility] [address] [id number] [address] [place] [phone] Aug, [facility] [address] [id number] [address] [place] [phone] Aug, Generalized anxiety disorder F41.1 and Depressive disorder, not elsewhere classified F32.9 [facility] [address] [id number] [address] [place] [phone] Jul, Skin lesion L98.9 [facility] [address] [id number] [address] [place] [phone] Jun, Generalized anxiety disorder F41.1 and Depressive disorder, not elsewhere classified F32.9 [facility] [address] [id number] [address] [place] [phone] Jun, [facility] [address] [facility] [id number] [address] [place] [phone] Jun, Generalized anxiety disorder F41.1 [facility] [address] [facility] [id number] [address] [place] [phone] May, Encounter for immunization Z 23 and Right shoulder pain M25.511 [facility] [address] [id number] [address] [place] [id number] Apr, [facility] [address] [facility] [id number] [address] [place] [phone] 14 Apr, 2015 Generalized anxiety disorder 300.02 and Depressive disorder, not elsewhere classified 311 [facility] [address] [id number] [address] [place] [id number] Mar, Dental examination V72.2 [facility] [address] [id number] [address] [place] [id number] Mar, Generalized anxiety disorder 300.02 and Depressive disorder, not elsewhere classified 311 [facility] [address] [facility] [id number] [address] [place] [id number] Mar, Depression, major, recurrent , 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.35 and 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 [facility] [address] [id number] [address] [place] [phone] Feb, Generalized anxiety disorder 300.02 and Depressive disorder, not elsewhere classified 311 [facility] [address] [id number] [address] [place] [address] [id number] Feb, Dental examination V72.2 [facility] [address] [facility] [id number] [address] [place] [phone] Jan, Generalized anxiety disorder 300.02 and Depressive disorder, not elsewhere classified 311 [facility] [address] [facility] [id number] [address] [place] [id number] Jan, [facility] [address] [id number] [address] [place] [phone] December, Generalized anxiety disorder 300.02 and Depressive disorder, not elsewhere classified 311 [facility] [address] [facility] [id number] [address] [place] [id number] December, Major depressive disorder, r ecurrent, unspecified 296.30 and Panic disorder with agoraphobia 300.21 [facility] [address] [id number] [address] [place] [phone] Nov, [facility] [address] [id number] [address] [place] [phone] Nov, [facility] [address] [facility] [id number] [address] [place] [phone] Oct, [facility] [address] [facility] [id number] [address] [place] [phone] Oct, [facility] [address] [id number] [address] [place] [address], [place] [address] Oct, [facility] [address] [id number] [address] [place] [address], [place] [address] Oct, [facility] [address] [id number] [address] [place] [address], [place] [address] Sep, 2014 [facility] [address] [id number] [address] [place] [address], [place] [address] Sep, 2014 [facility] [address] [id number] [address] [place] [address], [place] [address] Sep, 2014 [facility] [address] [id number] [address] [place] [address], [place] [address] Sep, 2014 [facility] [address] [id number] [address] [place] [address], [place] [address] Sep, [facility] [address] [id number] [address] [place] [address], [place] [address] Sep, 2014 [facility] [address] [id number] [address] [place] [address], [place] [address] Sep, [facility] [address] [id number] [address] [place] [address], [place] [address] Sep, [facility] [address] [id number] [address] [place] [address], [place] [address] Sep, [facility] [address] [id number] [address] [place] [address], [place] [address] Sep, [facility] [address] [id number] [address] [place] [address], [place] [address] Aug, [facility] [address] [id number] [address] [place] [address], [place] [address] Aug, [facility] [address] [id number] [address] [place] [address], [place] [address] Jul, [facility] [address] [id number] [address] [place] [address], [place] [address] Jul, [facility] [address] [id number] [address] [place] [address], [place] [address] Jul, [facility] [address] [id number] [address] [place] [address], [place] [address] Jul, [facility] [address] [id number] [address] [place] [address], [place] [address] Jul, [facility] [address] [id number] [address] [place] [address], [place] [address] Jul, [facility] [address] [id number] [address] [place] [address], [place] [address] Jul, [facility] [address] [id number] [address] [place] [address], [place] [address] Jul, [facility] [address] [id number] [address] [place] [address], [place] [address] Jul, [facility] [address] [id number] [address] [place] [address], [place] [address] Jul, [facility] [address] [id number] [address] [place] [address], [place] [address] Jul, [facility] [address] [id number] [address] [place] [address], [place] [address] Jul, [facility] [address] [id number] [address] [place] [address], [place] [address] Jun, [facility] [address] [id number] [address] [place] [address], [place] [address] Jun, [facility] [address] [id number] [address] [place] [address], [place] [address] May, [facility] [address] [id number] [address] [place] [address], [place] [address] May, [facility] [address] [id number] [address] [place] [address], [place] [address] May, [facility] [address] [id number] [address] [place] [address], [place] [address] May, [facility] [address] [id number] [address] [place] [address], [place] [address] May, [facility] [address] [id number] [address] [place] [address], [place] [address] May, [facility] [address] [id number] [address] [place] [address], [place] [address] May, [facility] [address] [id number] [address] [place] [address], [place] [address] May, [facility] [address] [id number] [address] [place] [address], [place] [address] May, [facility] [address] [id number] [address] [place] [address], [place] [address] May, [facility] [address] [id number] [address] [place] [address], [place] [address] May, [facility] [address] [id number] [address] [place] [address], [place] [address] May, [facility] [address] [id number] [address] [place] [address], [place] [address] 30 Apr, 2013 [facility] [address] [id number] [address] [place] [id number] 30 Apr, 2013 [facility] [address] [id number] [address] [place] [id number] 29 Apr, 2013 [facility] [address] [id number] [address] [place] [address], [place] [address] 29 Apr, 2013 [facility] [address] [id number] [address] [place] [address], [place] [address] 02 Apr, 2013 [facility] [address] [id number] [address] [place] [id number] 02 Apr, 2013 [facility] [address] [id number] [address] [place] [phone] Feb, [facility] [address] [id number] [facility] [place] [address] Feb, [facility] [address] [id number] [address] [place] [address], [place] [address] Feb, [facility] [address] [id number] [address] [place] [address], [place] [address] Feb, [facility] [address] [id number] [address] [place] [address], [place] [address] Feb, [facility] [address] [id number] [address] [place] [address], [place] [address] Feb, [facility] [address] [id number] [address] [place] [address], [place] [address] Jan, [facility] [address] [id number] [address] [place] [address], [place] [address] Jan, [facility] [address] [id number] [address] [place] [address], [place] [address] Jan, [facility] [address] [id number] [address] [place] [address], [place] [address] Jan, [facility] [address] [id number] [address] [place] [address], [place] [address] Jan, [facility] [address] [id number] [address] [place] [address], [place] [address] Jan, [facility] [address] [id number] [address] [place] [address], [place] [address] Jan, [facility] [address] [id number] [address] [place] [address], [place] [address] Jan, [facility] [address] [id number] [address] [place] [address], [place] [address] December, [facility] [address] [id number] [address] [place] [address], [place] [address] December, [facility] [address] [id number] [address] [place] [address], [place] [address] December, [facility] [address] [id number] [address] [place] [address], [place] [address] December, [facility] [address] [id number] [address] [place] [address], [place] [address] Nov, [facility] [address] [id number] [address] [place] [address], [place] [address] Nov, [facility] [address] [id number] [address] [place] [address], [place] [address] Nov, [facility] [address] [id number] [address] [place] [address], [place] [address] Nov, [facility] [address] [id number] [address] [place] [address], [place] [address] Nov, [facility] [address] [id number] [address] [place] [address], [place] [address] Nov, [facility] [address] [id number] [address] [place] [address], [place] [address] Nov, [facility] [address] [id number] [address] [place] [address], [place] [address] Nov, [facility] [address] [id number] [address] [place] [address], [place] [address] Oct, [facility] [address] [id number] [address] [place] [address], [place] [address] Oct, [facility] [address] [id number] [address] [place] [address], [place] [address] Sep, [facility] [address] [id number] [address] [place] [address], [place] [address] Sep, [facility] [address] [id number] [address] [place] [address], [place] [id number] Sep, [facility] [address] [id number] [address] [place] [address], [place] [address] Sep, [facility] [address] [id number] [address] [place] [address], [place] [address] Sep, [facility] [address] [id number] [address] [place] [address], [place] [address] Sep, [facility] [address] [id number] [address] [place] [address], [place] [address] Aug, [facility] [address] [id number] [address] [place] [address], [place] [address] Aug, [facility] [address] [id number] [address] [place] [address], [place] [address] Aug, [facility] [address] [id number] [address] [place] [address], [place] [address] Aug, [facility] [address] [id number] [address] [place] [address], [place] [address] Jul, [facility] [address] [id number] [address] [place] [address], [place] [address] Jul, [facility] [address] [id number] [address] [place] [address], [place] [address] Jul, [facility] [address] [id number] [address] [place] [address], [place] [address] Jul, [facility] [address] [id number] [address] [place] [address], [place] [address] Jun, [facility] [address] [id number] [address] [place] [id number] Jun, [facility] [address] [id number] [address] [place] [address], [place] [address] May, [facility] [address] [id number] [address] [place] [address], [place] [address] May, [facility] [address] [id number] [address] [place] [address], [place] [address] May, [facility] [address] [id number] [address] [place] [address], [place] [address] 11 May, 2013 [facility] [address] [id number] [address] [place] [address], [place] [address] 10 May, 2013 [facility] [address] [id number] [address] [place] [address], [place] [address] 17 Apr, 2013 [facility] [address] [id number] [address] [place] [address], [place] [address] Apr, [facility] [address] [id number] [address] [place] [address], [place] [address] 29 Mar, 2013 [facility] [address] [id number] [address] [place] [address], [place] [address] Mar, [facility] [address] [id number] [address] [place] [address], [place] [address] 15 Mar, 2013 [facility] [address] [id number] [address] [place] [address], [place] [address] Mar, [facility] [address] [id number] [address] [place] [address], [place] [address] 17 Feb, 2013 [facility] [address] [id number] [address] [place] [address], [place] [address] Feb, [facility] [address] [id number] [address] [place] [address], [place] [address] 16 Feb, 2013 [facility] [address] [id number] [address] [place] [address], [place] [address] Feb, [facility] [address] [id number] [address] [place] [address], [place] [address] Feb, [facility] [address] [id number] [address] [place] [address], [place] [address] Jan, [facility] [address] [id number] [address] [place] [address], [place] [address] Jan, [facility] [address] [id number] [address] [place] [address], [place] [address] 14 Jan, 2013 [facility] [address] [id number] [address] [place] [address], [place] [address] 06 Jan, 2013 [facility] [address] [id number] [address] [place] [address], [place] [address] 06 Jan, 2013 [facility] [address] [id number] [address] [place] [address], [place] [address] December, [facility] [address] [id number] [address] [place] [address], [place] [address] December, [facility] [address] [id number] [address] [place] [address], [place] [address] Nov, [facility] [address] [id number] [address] [place] [address], [place] [address] Nov, [facility] [address] [id number] [address] [place] [address], [place] [address] Oct, [facility] [address] [id number] [address] [place] [address], [place] [address] Oct, [facility] [address] [id number] [address] [place] [address], [place] [address] Oct, [facility] [address] [id number] [address] [place] [address], [place] [address] 14 Sep, 2012 [facility] [address] [id number] [address] [place] [address], [place] [address] Aug, [facility] [address] [id number] [place] [id number] Aug, [facility] [address] [id number] [address] [place] [address], [place] [address] Aug, [facility] [address] [id number] [address] [place] [address], [place] [address] Aug, [facility] [address] [id number] [address] [place] [address], [place] [address] Jul, [facility] [address] [id number] [address] [place] [id number] Jul, [facility] [address] [id number] [address] [place] [address], [place] [address] Jul, [facility] [address] [id number] [address] [place] [address], [place] [address] Jul, [facility] [address] [id number] [address] [place] [address], [place] [address] Jul, [facility] [address] [id number] [address] [place] [address], [place] [address] Jul, [facility] [address] [id number] [address] [place] [address], [place] [address] Jul, [facility] [address] [id number] [address] [place] [address], [place] [address] Jul, [facility] [address] [id number] [address] [place] [address], [place] [address] Jun, [facility] [address] [id number] [address] [place] [address], [place] [address] Jun, [facility] [address] [id number] [address] [place] [phone] Jun, [facility] [address] [id number] [address] [place] [phone] Jun, [facility] [address] [id number] [address] [place] [phone] Jun, [facility] [address] [id number] [address] [place] [id number] Jun, [facility] [address] [id number] [address] [place] [id number] May, [facility] [address] [id number] [address] [place] [address], [place] [address] May, [facility] [address] [id number] [address] [place] [address], [place] [address] 17 May, 2012 [facility] [address] [id number] [address] [place] [address], [place] [address] 17 May, 2012 [facility] [address] [id number] [address] [place] [address], [place] [address] 26 Apr, 2012 [facility] [address] [id number] [address] [place] [address], [place] [address] 06 Apr, 2012 [facility] [address] [id number] [address] [place] [address], [place] [address] 08 Mar, 2012 [facility] [address] [id number] [address] [place] [address], [place] [address] 28 Jan, 2012 [facility] [address] [id number] [address] [place] [address], [place] [address] 20 Jan, 2012 [facility] [address] [id number] [address] [place] [address], [place] [address] 16 Jan, 2012 [facility] [address] [id number] [place] [address], [place] [address] 15 Jan, 2012 [facility] [address] [id number] [address] [place] [address], [place] [address] 14 Jan, 2012 [facility] [address] [id number] [address] [place] [address], [place] [address] 14 Jan, 2012 [facility] [address] [id number] [address] [place] [address], [place] [address] 07 Jan, 2012 [facility] [address] [id number] [address] [place] [address], [place] [address] December, [facility] [address] [id number] [address] [place] [address], [place] [address] December, [facility] [address] [id number] [address] [place] [address], [place] [address] December, [facility] [address] [id number] [address] [place] [address], [place] [address] December, [facility] [address] [id number] [address] [place] [address], [place] [address] Nov, [facility] [address] [id number] [facility] [place] [address] Nov, [facility] [address] [id number] [address] [place] [address], [place] [address] 29 Oct, 2011 [facility] [address] [id number] [address] [place] [address], [place] [address] 28 Oct, 2011 [facility] [address] [id number] [address] [place] [address], [place] [address] 15 Oct, 2011 [facility] [address] [id number] [address] [place] [address], [place] [address] Sep, [facility] [address] [id number] [address] [place] [address], [place] [address] Sep, [facility] [address] [id number] [address] [place] [address], [place] [address] Sep, [facility] [address] [id number] [address] [place] [address], [place] [address] Aug, [facility] [address] [id number] [address] [place] [address], [place] [address] Aug, [facility] [address] [id number] [address] [place] [address], [place] [address] Aug, [facility] [address] [id number] [address] [place] [address], [place] [address] Aug, [facility] [address] [id number] [address] [place] [address], [place] [address] Aug, [facility] [address] [id number] [address] [place] [address], [place] [address] Aug, [facility] [address] [id number] [address] [place] [address], [place] [address] Aug, [facility] [address] [id number] [address] [place] [address], [place] [address] Jul, [facility] [address] [id number] [address] [place] [address], [place] [address] 02 Jul, 2011 [facility] [address] [id number] [address] [place] [address], [place] [address] 30 Jun, 2011 [facility] [address] [id number] [address] [place] [address], [place] [address] 28 Jun, 2011 [facility] [address] [id number] [address] [place] [address], [place] [address] 17 Jun, 2011 [facility] [address] [id number] [address] [place] [address], [place] [address] 15 Jun, 2011 [facility] [address] [id number] [address] [place] [address], [place] [address] 14 Jun, 2011 [facility] [address] [id number] [address] [place] [address], [place] [address] 14 Jun, 2011 [facility] [address] [id number] [address] [place] [address], [place] [address] Jun, [facility] [address] [id number] [address] [place] [address], [place] [address] 07 Jun, 2011 [facility] [address] [id number] [address] [place] [address], [place] [address] 02 Jun, 2011 [facility] [address] [id number] [address] [place] [address], [place] [address] 02 Jun, 2011 [facility] [address] [id number] [address] [place] [address], [place] [address] 31 May, 2011 [facility] [address] [id number] [address] [place] [address], [place] [address] 31 May, 2011 [facility] [address] [id number] [address] [place] [address], [place] [address] 25 May, 2011 [facility] [address] [id number] [address] [place] [address], [place] [address] 24 May, 2011 [facility] [address] [id number] [address] [place] [address], [place] [address] 18 May, 2011 [facility] [address] [id number] [address] [place] [address], [place] [address] 13 May, 2011 [facility] [address] [id number] [address] [place] [address], [place] [address] 13 Feb, 2011 [facility] [address] [id number] [address] [place] [address], [place] [address] December, [facility] [address] [id number] [address] [place] [address], [place] [address] 29 Jul, 2010 [facility] [address] [id number] [address] [place] [address], [place] [address] 29 Jul, 2010 [facility] [address] [id number] [address] [place] [address], [place] [address] 22 Jul, 2010 [facility] [address] [id number] [address] [place] [address], [place] [address] Jul, [facility] [address] [id number] [address] [place] [address], [place] [address] 15 Jun, 2010 [facility] [address] [id number] [address] [place] [address], [place] [address] 31 Jul, 2009 [facility] [address] [id number] [address] [place] [address], [place] [address] 23 Jul, 2009 [facility] [address] [id number] [address] [place] [address], [place] [address] 23 Jul, 2009 [facility] [address] [id number] [address] [place] [address], [place] [address] 17 Jul, 2009 [facility] [address] [id number] [address] [place] [address], [place] [address] 17 Jul, 2009 [facility] [address] [id number] [address] [place] [address], [place] [address] 10 Jul, 2009 [facility] [address] [id number] [address] [place] [address] 15 Jan, 2009 [facility] [address] [id number] [address] [place] [address] 16 Sep, 2008 [facility] [address] [facility] [id number] [address] [place] [address] 11 Sep, 2008 IMMUNIZATIONS No Known Immunizations SOCIAL HISTORY Never Assessed REASON FOR VISIT PLAN OF CARE VITAL SIGNS MEDICATIONS Unknown Medications RESULTS No Results PROCEDURES No Known procedures INSTRUCTIONS MEDICATIONS ADMINISTERED No Known Medications MEDICAL (GENERAL) HISTORY Type Description Date Medical History Hypertension Medical History Diverticulitis Medical History Tachycardia Medical History Headaches Medical History Cyst removed off finger removed part of the bone Medical History Reflux Surgical History Right tendonectomy of bicep and clean up of rotator cuff 05/2015 Surgical History new tubes in ears 11/04/2016 Surgical History 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
--- OUTSIDE RECORDS SUMMARY | 2020-01-27 09:57 | XMS REPORT ---
Author Author Silvia WILKINS Organization [facility] [place] Address [address] [place] [address] Care Team Providers Care Tester Sound Name Role Phone LETTY WILKINS Unavailable PROBLEMS Type Condition ICD9-CM Code [id number] Code Onset Dates Condition S tatus SNOMED Code Problem Hypertension I10 Active 5204314 3 Problem Generalized anxiety disorder F41.1 A ctive 300750505 Problem History of colon polyps Z86.010 Active 184902079 Problem History of diverticulitis Z87.19 Acti ve 136925891832382 Problem Family history of diabetes mellitus Z83.3 Active 982671221 Problem Excessive and frequent menstruation with irregular cycle N92.1 Active 880527663 Problem Hot flashes N95.1 Active 67796945 8 Problem Gastroesophageal reflux disease with esophagitis K 21.0 Active 587900679 Problem History of ovarian cyst Z87.42 Active 32048641 Problem Diverticulitis K57.92 Active 46457 6006 Problem Dense breast tissue R92.2 Active 851570023 Problem Perimenopausal N95.1 Active 27911 7082803543 Problem Mitral valve prolapse I34.1 Active 011507598 Problem Abnormal uterine bleeding (AUB) N93.9 Active 38865830632525 Problem Tachycardia R00.0 Active 0234364 ALLERGIES No Information ENCOUNTERS Encounter Location Date Diagnosis [facility] [address] [facility] [id number] [address] [place] [phone] Jan, [facility] [place] [address] [facility] [id number] [address] [place] [phone] Jan, [facility] [place] [address] [facility] [id number] [address] [place] [phone] December, Generalized anxiety disorder F41.1 [facility] [place] [address] [facility] [id number] [address] [place] [phone] December, [facility] [place] [address] [id number] [address] [place] [phone] 14 Dec, 2019 Generalized anxiety disorder F41.1 and Bereavement Z63.4 [facility] [place] [address] [id number] [address] [place] [id number] 30 Nov, 2019 Generalized anxiety disorder F41.1 and Bereavement Z63.4 [facility] [place] [address] [id number] [address] [place] [id number] 16 Nov, 2019 Generalized anxiety disorder F41.1 and Bereavement Z63.4 [facility] [place] [address] [id number] [address] [place] [phone] 13 Nov, 2019 [facility] [address] [id number] [address] [place] [id number] Nov, [facility] [place] [address] [id number] [address] [place] [phone] Nov, Generalized anxiety disorder F41.1 [facility] [place] [address] [id number] [address] [place] [id number] 30 Oct, 2019 Generalized anxiety disorder F41.1 and Bereavement Z63.4 [facility] [place] [address] [id number] [address] [place] [id number] 16 Oct, 2019 Acute non-recurrent sinusiti s, unspecified location J01.90 [facility] [address] [id number] [address] [place] [phone] 05 Oct, 2019 Acute non-recurrent frontal sinusitis J01.10 [facility] [place] [address] [id number] [address] [place] [id number] 27 Sep, 2019 Generalized anxiety disorder F41.1 and Bereavement Z63.4 [facility] [place] [address] [id number] [address] [place] [id number] 11 Sep, 2019 Generalized anxiety disorder F41.1 and Bereavement Z63.4 [facility] [place] [address] [id number] [address] [place] [id number] 15 Aug, 2019 Generalized anxiety disorder F41.1 and Bereavement Z63.4 [facility] [place] [address] [facility] [id number] [address] [place] [phone] Aug, Generalized anxiety disorder F41.1 [facility] [place] [address] [facility] [id number] [address] [place] [phone] 06 Aug, 2019 Viral upper respiratory trac t infection J06.9 [facility] [place] [address] [facility] [id number] [address] [place] [phone] Jul, Generalized anxiety disorder F41.1 and Bereavement Z63.4 [facility] [place] [address] [facility] [id number] [address] [place] [id number] Jul, Acute non-recurrent frontal sinusitis J01.10 [facility] [address] [facility] [id number] [address] [place] [phone] Jul, [facility] [address] [facility] [id number] [address] [place] [phone] Jul, Sore throat J02.9 and Uvulit is K12.2 [facility] [place] [address] [facility] [id number] [address] [place] [phone] Jul, Generalized anxiety disorder F41.1 [facility] [address] [facility] [id number] [address] [place] [address] Jul, Caries K02.9 [facility] [place] [address] [facility] [id number] [address] [place] [id number] Jun, Generalized anxiety disorder F41.1 [facility] [place] [address] [facility] [id number] [address] [place] [id number] Jun, Generalized anxiety disorder F41.1 and Bereavement Z63.4 [facility] [place] [address] [facility] [id number] [address] [place] [phone] May, Generalized anxiety disorder F41.1 [facility] [address] [facility] [id number] [address] [place] [id number] May, Dysuria R30.0 [facility] [place] [address] [facility] [id number] [address] [place] [phone] May, Generalized anxiety disorder F41.1 and Bereavement Z63.4 [facility] [place] [address] [facility] [id number] [address] [place] [phone] May, [facility] [place] [address] [facility] [id number] [address] [place] [address] Apr, Generalized anxiety disorder F41.1 and Bereavement Z63.4 [facility] [place] [address] [facility] [id number] [address] [place] [id number] Apr, Generalized anxiety disorder F41.1 [facility] [address] [facility] [id number] [address] [place] [address] Mar, Caries K02.9 ; Dental examin ation Z01.20 ; Periodontitis K05.30 and Oral health maintenance status requiring routine preventive dental care K08.9 [facility] [place] [address] [facility] [id number] [address] [place] [address] Mar, Generalized anxiety disorder F41.1 [facility] [place] [address] [facility] [id number] [address] [place] [address] Mar, Gastrointestinal hemorrhage associated with gastroduodenitis K29.91 [facility] [place] [address] [facility] [id number] [address] [place] [address] Mar, Generalized anxiety disorder F41.1 and Bereavement Z63.4 [facility] [place] [address] [facility] [id number] [address] [place] [phone] Mar, [facility] [place] [address] [facility] [id number] [address] [place] [phone] Mar, [facility] [place] [address] [facility] [id number] [address] [place] [address] Mar, [facility] [place] [id number] [place] [address] Mar, Tachycardia R00.0 and Essent ial hypertension I10 [facility] [place] [address] [place] [id number] [address] [place] [id number] Feb, Generalized anxiety disorder F41.1 [facility] [place] [address] [place] [id number] [address] [place] [id number] Feb, Generalized anxiety disorder F41.1 and Bereavement Z63.4 [facility] [place] [address] [place] [id number] [address] [place] [phone] Feb, Generalized anxiety disorder F41.1 [facility] [place] [address] [address] Feb, Generalized anxiety disorder F41.1 and Bereavement Z63.4 [place] [address] [place] [id number] [address] [place] [address] Jan, [facility] [place] [address] [place] [id number] [address] [place] [address] Jan, Breast cancer screening by trenton crenshaw Z12.31 [facility] [place] [address] [phone] Jan, Generalized anxiety disorder F41.1 and Bereavement Z63.4 [place] [address] [place] [id number] [address] [place] [address] Jan, [facility] [place] [address] [place] [id number] [address] [place] [phone] December, Generalized anxiety disorder F41.1 and Bereavement Z63.4 [facility] [place] [address] [place] [id number] [address] [place] [address] December, Diverticulitis K57.92 ; Dysu nick R30.0 ; Other constipation K59.09 and Lower abdominal pain R10.30 [facility] [address] [place] [id number] [address] [place] [address] Nov, Diverticulitis K57.92 [facility] [place] [address] [facility] [id number] [address] [place] [address] Nov, Generalized anxiety disorder F41.1 and Bereavement Z63.4 [facility] [place] [address] [facility] [id number] [address] [place] [id number] Nov, Generalized anxiety disorder F41.1 and Bereavement Z63.4 [facility] [place] [address] [facility] [id number] [address] [place] [address] Nov, Diverticulitis K57.92 [facility] [address] [facility] [id number] [address] [place] [address] Oct, Diverticulitis K57.92 [facility] [place] [address] [facility] [id number] [address] [place] [address] Oct, Diverticulitis K57.92 [facility] [place] [address] [facility] [id number] [address] [place] [id number] Oct, Generalized anxiety disorder F41.1 [facility] [address] [facility] [id number] [address] [place] [id number] Oct, Right lower quadrant abdomin al pain R10.31 and Diverticulitis K57.92 [facility] [place] [address] [facility] [id number] [address] [place] [address] Sep, Generalized anxiety disorder F41.1 and Bereavement Z63.4 [facility] [place] [address] [facility] [id number] [address] [place] [id number] Aug, [facility] [place] [address] [facility] [id number] [address] [place] [address] Aug, Generalized anxiety disorder F41.1 and Bereavement Z63.4 [facility] [address] [id number] [address] [place] [address] Aug, Caries K02.9 [facility] [place] [address] [facility] [id number] [address] [place] [phone] Jul, Generalized anxiety disorder F41.1 and Bereavement Z63.4 [facility] [place] [address] [facility] [id number] [address] [place] [address] Jul, Other acute gastritis withou t hemorrhage K29.00 ; Generalized anxiety disorder F41.1 ; Tachycardia R00.0 and Essential hypertension I10 [facility] [place] [address] [facility] [id number] [address] [place] [address] Jul, Generalized anxiety disorder F41.1 and Bereavement Z63.4 [facility] [place] [address] [facility] [id number] [address] [place] [address] Jun, Generalized anxiety disorder F41.1 and Bereavement Z63.4 [facility] [place] [address] [facility] [id number] [address] [place] [phone] Jun, Generalized anxiety disorder F41.1 and Bereavement Z63.4 [facility] [address] [id number] [address] [place] [address] Jun, Dental examination Z01.20 [facility] [place] [address] [facility] [id number] [address] [place] [address] May, Generalized anxiety disorder F41.1 and Bereavement Z63.4 [facility] [place] [address] [facility] [id number] [address] [place] [id number] 08 May, 2018 Encounter for immunization Z 23 [facility] [place] [address] [facility] [id number] [address] [place] [id number] 08 May, 2018 Generalized anxiety disorder F41.1 and Bereavement Z63.4 [facility] [place] [address] [facility] [id number] [address] [place] [phone] May, [facility] [place] [address] [facility] [id number] [address] [place] [address] Apr, Generalized anxiety disorder F41.1 and Bereavement Z63.4 [facility] [place] [address] [facility] [id number] [address] [place] [id number] 17 Apr, 2018 [facility] [place] [address] [id number] [address] [place] [address] Apr, Diverticulitis K57.92 [facility] [place] [address] [id number] [address] [place] [phone] Apr, Generalized anxiety disorder F41.1 and Bereavement Z63.4 [facility] [address] [id number] [address] [place] [phone] Mar, [facility] [address] [id number] [address] [place] [address] Mar, Diverticulitis K57.92 [facility] [place] [address] [id number] [address] [place] [phone] Mar, Generalized anxiety disorder F41.1 and Bereavement Z63.4 [facility] [place] [address] [id number] [address] [place] [phone] Mar, Hypertension I10 [facility] [place] [address] [id number] [address] [place] [phone] Mar, Generalized anxiety disorder F41.1 and Bereavement Z63.4 [facility] [place] [address] [id number] [address] [place] [address] Feb, Generalized anxiety disorder F41.1 and Bereavement Z63.4 [facility] [place] [address] [id number] [address] [place] [address] Feb, [facility] [place] [address] [id number] [address] [place] [address] Feb, Generalized anxiety disorder F41.1 and Bereavement Z63.4 [facility] [place] [address] [facility] [id number] [address] [place] [phone] Feb, Generalized anxiety disorder F41.1 and Bereavement Z63.4 [facility] [place] [address] [facility] [id number] [address] [place] [address] Jan, Hypertension I10 and Acute n on-recurrent maxillary sinusitis J01.00 [facility] [place] [address] [id number] [address] [place] [address] December, [facility] [place] [address] [id number] [address] [place] [phone] December, Hypertension I10 [facility] [place] [address] [id number] [address] [place] [address] December, Generalized anxiety disorder F41.1 [facility] [address] [id number] [address] [place] [address] Oct, Encounter for dental examina tion Z01.20 [facility] [address] [id number] [address] [place] [address] Oct, Encounter for dental examina tion Z01.20 [facility] [address] [id number] [address] [place] [address] Oct, Dental examination Z01.20 [facility] [place] [address] [id number] [address] [place] [address] Oct, Generalized anxiety disorder F41.1 [facility] [address] [id number] [address] [place] [address] Aug, Dental examination Z01.20 [facility] [place] [address] [id number] [address] [place] [id number] Aug, Generalized anxiety disorder F41.1 [facility] [place] [address] [id number] [address] [place] [phone] Aug, [facility] [address] [id number] [address] [place] [phone] Aug, Encounter for dental examina tion Z01.20 [facility] [place] [address] [id number] [address] [place] [id number] Aug, Subacute maxillary sinusitis J01.00 [facility] [address] [id number] [address] [place] [phone] 22 Jul, 2017 Dental examination Z01.20 [facility] [place] [address] [id number] [address] [place] [phone] 19 Jul, 2017 Generalized anxiety disorder F41.1 [facility] [place] [address] [id number] [address] [place] [id number] 11 Jul, 2017 Diverticulitis K57.92 [facility] [place] [address] [id number] [address] [place] [phone] 28 Jun, 2017 Encounter for immunization Z 23 [facility] [address] [id number] [address] [place] [phone] 22 Jun, 2017 Dental examination Z01.20 [facility] [place] [address] [id number] [address] [place] [phone] 14 Jun, 2017 Generalized anxiety disorder F41.1 [facility] [address] [id number] [address] [place] [phone] 07 Jun, 2017 Dental examination Z01.20 [facility] [place] [address] [id number] [address] [place] [phone] May, [facility] [address] [id number] [address] [place] [id number] May, Dental examination Z01.20 [facility] [address] [id number] [address] [place] [id number] May, Dental examination Z01.20 [facility] [address] [id number] [address] [place] [phone] May, Dental examination Z01.20 [facility] [place] [address] [id number] [address] [place] [phone] May, [facility] [place] [address] [id number] [address] [place] [phone] May, Generalized anxiety disorder F41.1 [facility] [place] [address] [id number] [address] [place] [phone] May, Localized edema R60.0 ; Yeas t vaginitis B37.3 and Gastroesophageal reflux disease with esophagitis K21.0 [facility] [address] [id number] [address] [place] [phone] Apr, Dental examination Z01.20 [facility] [address] [id number] [address] [place] [phone] Apr, Dental examination Z01.20 [facility] [address] [id number] [address] [place] [phone] 05 Apr, 2017 Dental examination Z01.20 [facility] [place] [address] [id number] [address] [place] [phone] Mar, Dyspepsia R10.13 [facility] [place] [address] [id number] [address] [place] [phone] Mar, Generalized anxiety disorder F41.1 [facility] [address] [id number] [address] [place] [phone] Mar, Encounter for dental examina tion Z01.20 [facility] [address] [id number] [address] [place] [id number] Mar, [facility] [address] [id number] [address] [place] [phone] Mar, Dental examination Z01.20 [facility] [place] [address] [id number] [address] [place] [id number] Feb, Hypertension I10 and Tachyca rdia R00.0 [facility] [address] [id number] [address] [place] [address] Feb, [facility] [place] [address] [id number] [address] [place] [address] Feb, Generalized anxiety disorder F41.1 [facility] [address] [id number] [address] [place] [address] [id number] Feb, Dental examination Z01.20 [facility] [place] [address] [id number] [address] [place] [id number] Jan, Generalized anxiety disorder F41.1 [facility] [place] [address] [id number] [address] [place] [id number] December, Generalized anxiety disorder F41.1 [facility] [address] [id number] [address] [place] [address] [id number] December, Encounter for dental examina tion Z01.20 [facility] [place] [address] [id number] [address] [place] [id number] Nov, [facility] [place] [address] [id number] [address] [place] [id number] Nov, [facility] [place] [address] [id number] [address] [place] [id number] Nov, Generalized anxiety disorder F41.1 [facility] [place] [address] [id number] [address] [place] [address] Oct, [facility] [address] [id number] [address] [place] [address] [id number] Oct, Dental examination Z01.20 [facility] [place] [address] [id number] [address] [place] [id number] Oct, Vaginal dryness N89.8 [facility] [place] [address] [id number] [address] [place] [address] Oct, Pseudoseizures F44.5 [facility] [place] [address] [id number] [address] [place] [id number] Oct, Generalized anxiety disorder F41.1 [facility] [place] [address] [id number] [address] [place] [id number] Sep, Abnormal uterine bleeding (A UB) N93.9 ; Vaginal dryness N89.8 and Screening breast examination Z12.39 [facility] [place] [address] [place] [address] [id number] [address] [place] [id number] Sep, Dental examination Z01.20 [facility] [place] [address] [id number] [address] [place] [id number] Sep, Generalized anxiety disorder F41.1 [facility] [place] [address] [id number] [address] [place] [id number] 06 Sep, 2016 Unspecified ovarian cyst, ri ght side N83.201 ; Unspecified ovarian cyst, left side N83.202 ; Yeast infection of the vagina B37.3 ; Mitral valve prolapse I34.1 and Hypertension I10 [facility] [place] [id number] [place] [address] Aug, Generalized anxiety disorder F41.1 [facility] [place] [id number] [place] [id number] Jul, [facility] [place] [address] [id number] Jul, Generalized anxiety disorder F41.1 [facility] [place] [address] [address] Jun, Generalized anxiety disorder F41.1 [facility] [place] [address] [id number] 28 May, 2016 Encounter for immunization Z 23 [facility] [place] [address] [id number] 17 May, 2016 Generalized anxiety disorder F41.1 and Depressive disorder, not elsewhere classified F32.9 [facility] [place] [address] [id number] [address] [place] [id number] 28 Apr, 2016 Hypertension I10 [facility] [place] [address] [id number] [address] [place] [id number] 22 Apr, 2016 Cervicalgia M54.2 [facility] [address] [id number] [address] [place] [id number] 12 Apr, 2016 Cervicalgia M54.2 [facility] [place] [address] [id number] [address] [place] [id number] Mar, Generalized anxiety disorder F41.1 and Depressive disorder, not elsewhere classified F32.9 [facility] [address] [id number] [address] [place] [address] [id number] 14 Feb, 2016 Visit for dental examination Z01.20 [facility] [place] [address] [id number] [address] [place] [id number] 11 Feb, 2016 Pseudoseizures F44.5 ; Migra ine without status migrainosus, not intractable, unspecified migraine type G43.909 and Essential hypertension I10 [facility] [address] [id number] [address] [place] [address] [id number] 06 Feb, 2016 Dental examination Z01.20 [facility] [place] [address] [id number] [address] [place] [id number] 05 Feb, 2016 Generalized anxiety disorder F41.1 and Depressive disorder, not elsewhere classified F32.9 [facility] [place] [address] [id number] [address] [place] [id number] Jan, Tachycardia R00.0 [facility] [place] [address] [id number] [address] [place] [id number] December, Eustachian tube dysfunction, bilateral H69.83 [facility] [place] [address] [id number] [address] [place] [id number] December, Generalized anxiety disorder F41.1 and Depressive disorder, not elsewhere classified F32.9 [facility] [place] [address] [id number] [address] [place] [id number] Nov, [facility] [place] [address] [id number] [address] [place] [id number] Nov, [facility] [place] [address] [facility] [id number] [address] [place] [address] Nov, Hypertension I10 ; Onychomyc osis B35.1 [...] and Complex cyst of left ovary N83.29 [place] [address] [id number] 14 Nov, 2015 Sinusitis J32.9 [place] [address] [address] Oct, Complex cyst of left ovary N 83.29 [place] [address] [address] Oct, Onychomycosis B35.1 [facility] [id number] [place] [address] [id number] Oct, Dental examination Z01.20 [place] [address] [address] 09 Oct, 2016 Well woman exam Z01.419 [...] R92.2 and History of colon polyps Z86.010 [place] [address] [address] Oct, Generalized anxiety disorder F41.1 and Depressive disorder, not elsewhere classified F32.9 [place] [address] [address] Sep, Hypertension I10 and Onychom ycosis B35.1 [place] [address] [id number] [address] [place] [id number] 16 Sep, 2015 Skin tags, multiple acquired L91.8 [facility] [place] [address] [id number] [address] [place] [id number] Aug, [facility] [place] [address] [id number] [address] [place] [id number] Aug, [facility] [place] [address] [id number] [address] [place] [id number] Aug, [facility] [place] [address] [id number] [address] [place] [id number] Aug, Generalized anxiety disorder F41.1 and Depressive disorder, not elsewhere classified F32.9 [facility] [place] [address] [id number] [address] [place] [id number] Jul, Skin lesion L98.9 [facility] [place] [address] [id number] [address] [place] [id number] Jun, Generalized anxiety disorder F41.1 and Depressive disorder, not elsewhere classified F32.9 [facility] [place] [address] [id number] [address] [place] [id number] Jun, [facility] [place] [address] [facility] [id number] [address] [place] [id number] Jun, Generalized anxiety disorder F41.1 [facility] [place] [address] [facility] [id number] [address] [place] [id number] May, Encounter for immunization Z 23 and Right shoulder pain M25.511 [facility] [place] [address] [id number] [address] [place] [id number] Apr, [facility] [place] [address] [facility] [id number] [address] [place] [id number] 14 Apr, 2015 Generalized anxiety disorder 300.02 and Depressive disorder, not elsewhere classified 311 [facility] [address] [id number] [address] [place] [address] [id number] Mar, Dental examination V72.2 [facility] [place] [address] [id number] [address] [place] [id number] Mar, Generalized anxiety disorder 300.02 and Depressive disorder, not elsewhere classified 311 [facility] [place] [address] [facility] [id number] [address] [place] [address] Mar, Depression, major, recurrent , 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.35 and 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 [facility] [place] [address] [id number] [address] [place] [id number] Feb, Generalized anxiety disorder 300.02 and Depressive disorder, not elsewhere classified 311 [facility] [address] [id number] [address] [place] [address] [id number] Feb, Dental examination V72.2 [facility] [place] [address] [facility] [id number] [address] [place] [id number] Jan, Generalized anxiety disorder 300.02 and Depressive disorder, not elsewhere classified 311 [facility] [place] [address] [facility] [id number] [address] [place] [id number] Jan, [facility] [place] [address] [id number] [address] [place] [id number] December, Generalized anxiety disorder 300.02 and Depressive disorder, not elsewhere classified 311 [facility] [place] [address] [facility] [id number] [address] [place] [id number] December, Major depressive disorder, r ecurrent, unspecified 296.30 and Panic disorder with agoraphobia 300.21 [facility] [place] [address] [id number] [address] [place] [id number] Nov, [facility] [place] [address] [id number] [address] [place] [phone] Nov, [facility] [place] [address] [facility] [id number] [address] [place] [id number] Oct, [facility] [place] [address] [facility] [id number] [address] [place] [phone] Oct, [facility] [address] [id number] [address] [place] [address], [place] [address] Oct, [facility] [address] [id number] [address] [place] [address], [place] [address] Oct, [facility] [address] [id number] [address] [place] [address], [place] [address] Sep, 2014 [facility] [address] [id number] [address] [place] [address], [place] [address] Sep, 2014 [facility] [address] [id number] [address] [place] [address], [place] [address] Sep, 2014 [facility] [address] [id number] [address] [place] [address], [place] [address] Sep, 2014 [facility] [address] [id number] [address] [place] [address], [place] [address] Sep, [facility] [address] [id number] [address] [place] [address], [place] [address] Sep, 2014 [facility] [address] [id number] [address] [place] [address], [place] [address] Sep, [facility] [address] [id number] [address] [place] [address], [place] [address] Sep, [facility] [address] [id number] [address] [place] [address], [place] [address] Sep, [facility] [address] [id number] [address] [place] [address], [place] [address] Sep, [facility] [address] [id number] [address] [place] [address], [place] [address] Aug, [facility] [address] [id number] [address] [place] [address], [place] [address] Aug, [facility] [address] [id number] [address] [place] [address], [place] [address] Jul, [facility] [address] [id number] [address] [place] [address], [place] [address] Jul, [facility] [address] [id number] [address] [place] [address], [place] [address] Jul, [facility] [address] [id number] [address] [place] [address], [place] [address] Jul, [facility] [address] [id number] [address] [place] [address], [place] [address] Jul, [facility] [address] [id number] [address] [place] [address], [place] [address] Jul, [facility] [address] [id number] [address] [place] [address], [place] [address] Jul, [facility] [address] [id number] [address] [place] [address], [place] [address] Jul, [facility] [address] [id number] [address] [place] [address], [place] [address] Jul, [facility] [address] [id number] [address] [place] [address], [place] [address] Jul, [facility] [address] [id number] [address] [place] [address], [place] [address] Jul, [facility] [address] [id number] [address] [place] [address], [place] [address] Jul, [facility] [address] [id number] [address] [place] [address], [place] [address] Jun, [facility] [address] [id number] [address] [place] [address], [place] [address] Jun, [facility] [address] [id number] [address] [place] [address], [place] [address] May, [facility] [address] [id number] [address] [place] [address], [place] [address] May, [facility] [address] [id number] [address] [place] [address], [place] [address] May, [facility] [address] [id number] [address] [place] [address], [place] [address] May, [facility] [address] [id number] [address] [place] [address], [place] [address] May, [facility] [address] [id number] [address] [place] [address], [place] [address] May, [facility] [address] [id number] [address] [place] [address], [place] [address] May, [facility] [address] [id number] [address] [place] [address], [place] [address] May, [facility] [address] [id number] [address] [place] [address], [place] [address] May, [facility] [address] [id number] [address] [place] [address], [place] [address] May, [facility] [address] [id number] [address] [place] [address], [place] [address] May, [facility] [address] [id number] [address] [place] [address], [place] [address] May, [facility] [address] [id number] [address] [place] [address], [place] [address] 30 Apr, 2013 [facility] [address] [id number] [address] [place] [address] 30 Apr, 2013 [facility] [address] [id number] [address] [place] [id number] 29 Apr, 2013 [facility] [address] [id number] [address] [place] [address], [place] [address] 29 Apr, 2013 [facility] [address] [id number] [address] [place] [address], [place] [address] 02 Apr, 2013 [facility] [address] [id number] [address] [place] [address] 02 Apr, 2013 [facility] [address] [id number] [address] [place] [id number] Feb, [facility] [address] [id number] [facility] [place] [address] Feb, [facility] [address] [id number] [address] [place] [address], [place] [address] Feb, [facility] [address] [id number] [address] [place] [address], [place] [address] Feb, [facility] [address] [id number] [address] [place] [address], [place] [address] Feb, [facility] [address] [id number] [address] [place] [address], [place] [address] Feb, [facility] [address] [id number] [address] [place] [address], [place] [address] Jan, [facility] [address] [id number] [address] [place] [address], [place] [address] Jan, [facility] [address] [id number] [address] [place] [address], [place] [address] Jan, [facility] [address] [id number] [address] [place] [address], [place] [address] Jan, [facility] [address] [id number] [address] [place] [address], [place] [address] Jan, [facility] [address] [id number] [address] [place] [address], [place] [address] Jan, [facility] [address] [id number] [address] [place] [address], [place] [address] Jan, [facility] [address] [id number] [address] [place] [address], [place] [address] Jan, [facility] [address] [id number] [address] [place] [address], [place] [address] December, [facility] [address] [id number] [address] [place] [address], [place] [address] December, [facility] [address] [id number] [address] [place] [address], [place] [address] December, [facility] [address] [id number] [address] [place] [address], [place] [address] December, [facility] [address] [id number] [address] [place] [address], [place] [address] Nov, [facility] [address] [id number] [address] [place] [address], [place] [address] Nov, [facility] [address] [id number] [address] [place] [address], [place] [address] Nov, [facility] [address] [id number] [address] [place] [address], [place] [address] Nov, [facility] [address] [id number] [address] [place] [address], [place] [address] Nov, [facility] [address] [id number] [address] [place] [address], [place] [address] Nov, [facility] [address] [id number] [address] [place] [address], [place] [address] Nov, [facility] [address] [id number] [address] [place] [address], [place] [address] Nov, [facility] [address] [id number] [address] [place] [address], [place] [address] Oct, [facility] [address] [id number] [address] [place] [address], [place] [address] Oct, [facility] [address] [id number] [address] [place] [address], [place] [address] Sep, [facility] [address] [id number] [address] [place] [address], [place] [address] Sep, [facility] [address] [id number] [address] [place] [address], [place] [id number] Sep, [facility] [address] [id number] [address] [place] [address], [place] [address] Sep, [facility] [address] [id number] [address] [place] [address], [place] [address] Sep, [facility] [address] [id number] [address] [place] [address], [place] [address] Sep, [facility] [address] [id number] [address] [place] [address], [place] [address] Aug, [facility] [address] [id number] [address] [place] [address], [place] [address] Aug, [facility] [address] [id number] [address] [place] [address], [place] [address] Aug, [facility] [address] [id number] [address] [place] [address], [place] [address] Aug, [facility] [address] [id number] [address] [place] [address], [place] [address] Jul, [facility] [address] [id number] [address] [place] [address], [place] [address] Jul, [facility] [address] [id number] [address] [place] [address], [place] [address] Jul, [facility] [address] [id number] [address] [place] [address], [place] [address] Jul, [facility] [address] [id number] [address] [place] [address], [place] [address] Jun, [facility] [address] [id number] [address] [place] [address] Jun, [facility] [address] [id number] [address] [place] [address], [place] [address] May, [facility] [address] [id number] [address] [place] [address], [place] [address] May, [facility] [address] [id number] [address] [place] [address], [place] [address] May, [facility] [address] [id number] [address] [place] [address], [place] [address] 11 May, 2013 [facility] [address] [id number] [address] [place] [address], [place] [address] 10 May, 2013 [facility] [address] [id number] [address] [place] [address], [place] [address] 17 Apr, 2013 [facility] [address] [id number] [address] [place] [address], [place] [address] Apr, [facility] [facility] [address] [id number] [address] [place] [address], [place] [address] 29 Mar, 2013 [facility] [address] [id number] [address] [place] [address], [place] [address] Mar, [facility] [address] [id number] [address] [place] [address], [place] [address] 15 Mar, 2013 [facility] [address] [id number] [address] [place] [address], [place] [address] Mar, [facility] [address] [id number] [address] [place] [address], [place] [address] 17 Feb, 2013 [facility] [address] [id number] [address] [place] [address], [place] [address] Feb, [facility] [address] [id number] [address] [place] [address], [place] [address] 16 Feb, 2013 [facility] [address] [id number] [address] [place] [address], [place] [address] Feb, [facility] [address] [id number] [address] [place] [address], [place] [address] Feb, [facility] [address] [id number] [address] [place] [address], [place] [address] Jan, [facility] [address] [id number] [address] [place] [address], [place] [address] Jan, [facility] [address] [id number] [address] [place] [address], [place] [address] 14 Jan, 2013 [facility] [address] [id number] [address] [place] [address], [place] [address] 06 Jan, 2013 [facility] [address] [id number] [address] [place] [address], [place] [address] 06 Jan, 2013 [facility] [address] [id number] [address] [place] [address], [place] [address] December, [facility] [address] [id number] [address] [place] [address], [place] [address] December, [facility] [address] [id number] [address] [place] [address], [place] [address] Nov, [facility] [address] [id number] [address] [place] [address], [place] [address] Nov, [facility] [address] [id number] [address] [place] [address], [place] [address] Oct, [facility] [address] [id number] [address] [place] [address], [place] [address] Oct, [facility] [address] [id number] [address] [place] [address], [place] [address] Oct, [facility] [address] [id number] [address] [place] [address], [place] [address] 14 Sep, 2012 [facility] [address] [id number] [address] [place] [address], [place] [address] Aug, [facility] [address] [id number] [address] [place] [address] Aug, [facility] [address] [id number] [address] [place] [address], [place] [address] Aug, [facility] [address] [id number] [address] [place] [address], [place] [address] Aug, [facility] [address] [id number] [address] [place] [address], [place] [address] Jul, [facility] [address] [id number] [address] [place] [address] Jul, [facility] [address] [id number] [address] [place] [address], [place] [address] Jul, [facility] [address] [id number] [address] [place] [address], [place] [address] Jul, [facility] [address] [id number] [address] [place] [address], [place] [address] Jul, [facility] [address] [id number] [address] [place] [address], [place] [address] Jul, [facility] [address] [id number] [address] [place] [address], [place] [address] Jul, [facility] [address] [id number] [address] [place] [address], [place] [address] Jul, [facility] [address] [id number] [address] [place] [address], [place] [address] Jun, [facility] [address] [id number] [address] [place] [address], [place] [address] Jun, [facility] [address] [id number] [address] [place] [address] Jun, [facility] [address] [id number] [address] [place] [address] Jun, [facility] [address] [id number] [address] [place] [address] Jun, [facility] [address] [id number] [address] [place] [address] Jun, [facility] [address] [id number] [address] [place] [address] May, [facility] [address] [id number] [address] [place] [address], [place] [address] May, [facility] [address] [id number] [address] [place] [address], [place] [address] 17 May, 2012 [facility] [address] [id number] [address] [place] [address], [place] [address] 17 May, 2012 [facility] [address] [id number] [address] [place] [address], [place] [address] 26 Apr, 2012 [facility] [address] [id number] [address] [place] [address], [place] [address] 06 Apr, 2012 [facility] [address] [id number] [address] [place] [address], [place] [address] 08 Mar, 2012 [facility] [address] [id number] [address] [place] [address], [place] [address] 28 Jan, 2012 [facility] [address] [id number] [address] [place] [address], [place] [address] 20 Jan, 2012 [facility] [address] [id number] [address] [place] [address], [place] [address] 16 Jan, 2012 [facility] [address] [id number] [address] [place] [address], [place] [address] 15 Jan, 2012 [facility] [address] [id number] [address] [place] [address], [place] [address] 14 Jan, 2012 [facility] [address] [id number] [address] [place] [address], [place] [address] 14 Jan, 2012 [facility] [address] [id number] [address] [place] [address], [place] [address] 07 Jan, 2012 [facility] [address] [id number] [address] [place] [address], [place] [address] December, [facility] [address] [id number] [address] [place] [address], [place] [address] December, [facility] [address] [id number] [address] [place] [address], [place] [address] December, [facility] [address] [id number] [address] [place] [address], [place] [address] December, [facility] [address] [id number] [address] [place] [address], [place] [address] Nov, [facility] [address] [id number] [facility] [place] [address] Nov, [facility] [address] [id number] [address] [place] [address], [place] [address] 29 Oct, 2011 [facility] [address] [id number] [address] [place] [address], [place] [address] 28 Oct, 2011 [facility] [address] [id number] [address] [place] [address], [place] [address] 15 Oct, 2011 [facility] [address] [id number] [address] [place] [address], [place] [address] Sep, [facility] [address] [id number] [address] [place] [address], [place] [address] Sep, [facility] [address] [id number] [address] [place] [address], [place] [address] Sep, [facility] [address] [id number] [address] [place] [address], [place] [address] Aug, [facility] [address] [id number] [address] [place] [address], [place] [address] Aug, [facility] [address] [id number] [address] [place] [address], [place] [address] Aug, [facility] [address] [id number] [address] [place] [address], [place] [address] Aug, [facility] [address] [id number] [address] [place] [address], [place] [address] Aug, [facility] [address] [id number] [address] [place] [address], [place] [address] Aug, [facility] [address] [id number] [address] [place] [address], [place] [address] Aug, [facility] [address] [id number] [address] [place] [address], [place] [address] Jul, [facility] [address] [id number] [address] [place] [address], [place] [address] 02 Jul, 2011 [facility] [address] [id number] [address] [place] [address], [place] [address] 30 Jun, 2011 [facility] [address] [id number] [address] [place] [address], [place] [address] 28 Jun, 2011 [facility] [address] [id number] [address] [place] [address], [place] [address] 17 Jun, 2011 [facility] [address] [id number] [address] [place] [address], [place] [address] 15 Jun, 2011 [facility] [address] [id number] [address] [place] [address], [place] [address] 14 Jun, 2011 [facility] [address] [id number] [address] [place] [address], [place] [address] 14 Jun, 2011 [facility] [address] [id number] [address] [place] [address], [place] [address] Jun, [facility] [address] [id number] [address] [place] [address], [place] [address] 07 Jun, 2011 [facility] [address] [id number] [address] [place] [address], [place] [address] 02 Jun, 2011 [facility] [address] [id number] [address] [place] [address], [place] [address] 02 Jun, 2011 [facility] [address] [id number] [address] [place] [address], [place] [address] 31 May, 2011 [facility] [address] [id number] [address] [place] [address], [place] [address] 31 May, 2011 [facility] [address] [id number] [address] [place] [address], [place] [address] 25 May, 2011 [facility] [address] [id number] [address] [place] [address], [place] [address] 24 May, 2011 [facility] [address] [id number] [address] [place] [address], [place] [address] 18 May, 2011 [facility] [address] [id number] [address] [place] [address], [place] [address] 13 May, 2011 [facility] [address] [id number] [address] [place] [address], [place] [address] 13 Feb, 2011 [facility] [address] [id number] [address] [place] [address], [place] [address] December, [facility] [address] [id number] [address] [place] [address], [place] [address] 29 Jul, 2010 [facility] [address] [id number] [address] [place] [address], [place] [address] 29 Jul, 2010 [facility] [address] [id number] [address] [place] [address], [place] [address] 22 Jul, 2010 [facility] [address] [id number] [address] [place] [address], [place] [address] Jul, [facility] [address] [id number] [address] [place] [address], [place] [address] 15 Jun, 2010 [facility] [address] [id number] [address] [place] [address], [place] [address] 31 Jul, 2009 [facility] [address] [id number] [address] [place] [address], [place] [address] 23 Jul, 2009 [facility] [address] [id number] [address] [place] [address], [place] [address] 23 Jul, 2009 [facility] [address] [id number] [address] [place] [address], [place] [address] 17 Jul, 2009 [facility] [address] [id number] [address] [place] [address], [place] [address] 17 Jul, 2009 [facility] [address] [id number] [address] [place] [address], [place] [address] 10 Jul, 2009 [facility] [address] [id number] [address] [place] [address] 15 Jan, 2009 [facility] [address] [id number] [address] [place] [address] 16 Sep, 2008 [facility] [address] [facility] [id number] [address] [place] [address] 11 Sep, 2008 IMMUNIZATIONS No Known Immunizations [...]
--- OUTSIDE RECORDS SUMMARY | 2020-01-27 09:58 | XMS REPORT ---
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 Name Role Phone LETTY WILKINS Unavailable PROBLEMS Type Condition ICD9-CM Code INA15-UT Code Onset Dates Condition S tatus SNOMED Code Problem Hypertension I10 Active 5833748 3 Problem Generalized anxiety disorder F41.1 A ctive 551991437 Problem History of colon polyps Z86.010 Active 539223469 Problem History of diverticulitis Z87.19 Acti ve [id number] Problem Family history of diabetes mellitus Z83.3 Active 099463889 Problem Excessive and frequent menstruation with irregular cycle N92.1 Active 358273126 Problem Hot flashes N95.1 Active 17258684 8 Problem Gastroesophageal reflux disease with esophagitis K 21.0 Active 980235170 Problem History of ovarian cyst Z87.42 Active 20530509 Problem Diverticulitis K57.92 Active 67824 6006 Problem Dense breast tissue R92.2 Active 028059754 Problem Perimenopausal N95.1 Active 20771 4052883237 Problem Mitral valve prolapse I34.1 Active 880422237 Problem Abnormal uterine bleeding (AUB) N93.9 Active 72252188373479 Problem Tachycardia R00.0 Active 8810968 ALLERGIES No Information ENCOUNTERS Encounter Location Date Diagnosis [facility] [address] [facility] [id number] [address] [place] [phone] Jan, [facility] [address] [facility] [id number] [address] [place] [phone] December, [facility] [address] [facility] [id number] [address] [place] [phone] Nov, Generalized anxiety disorder F41.1 and Bereavement Z63.4 [place] [address] [facility] [id number] [address] [place] [phone] 16 Nov, 2019 Generalized anxiety disorder F41.1 and Bereavement Z63.4 [facility] [address] [id number] [address] [place] [phone] 13 Nov, 2019 [facility] [address] [id number] [address] [place] [id number] 08 Nov, 2019 [facility] [address] [id number] [address] [place] [phone] 06 Nov, 2019 Generalized anxiety disorder F41.1 [facility] [address] [id number] [address] [place] [phone] 30 Oct, 2019 Generalized anxiety disorder F41.1 and Bereavement Z63.4 [facility] [address] [id number] [address] [place] [phone] 16 Oct, 2019 Acute non-recurrent sinusiti s, unspecified location J01.90 [facility] [address] [id number] [address] [place] [phone] 05 Oct, 2019 Acute non-recurrent frontal sinusitis J01.10 [facility] [address] [id number] [address] [place] [phone] 27 Sep, 2019 Generalized anxiety disorder F41.1 and Bereavement Z63.4 [facility] [address] [id number] [address] [place] [phone] 17 Sep, 2019 [facility] [address] [id number] [address] [place] [phone] Sep, Generalized anxiety disorder F41.1 and Bereavement Z63.4 [facility] [address] [id number] [address] [place] [phone] 15 Aug, 2019 Generalized anxiety disorder F41.1 and Bereavement Z63.4 [facility] [address] [id number] [address] [place] [phone] 13 Aug, 2019 Generalized anxiety disorder F41.1 [facility] [address] [id number] [address] [place] [phone] Aug, Viral upper respiratory trac t infection J06.9 [facility] [address] [facility] [id number] [address] [place] [phone] Jul, Generalized anxiety disorder F41.1 and Bereavement Z63.4 [facility] [address] [facility] [id number] [address] [place] [phone] Jul, Acute non-recurrent frontal sinusitis J01.10 [facility] [address] [facility] [id number] [address] [place] [phone] Jul, [facility] [address] [facility] [id number] [address] [place] [phone] Jul, Sore throat J02.9 and Uvulit is K12.2 [facility] [address] [facility] [id number] [address] [place] [phone] Jul, Generalized anxiety disorder F41.1 [facility] [address] [facility] [id number] [place] [address] Jul, Caries K02.9 [facility] [address] [facility] [id number] [address] [place] [phone] Jun, Generalized anxiety disorder F41.1 [facility] [address] [facility] [id number] [address] [place] [phone] Jun, Generalized anxiety disorder F41.1 and Bereavement Z63.4 [facility] [address] [facility] [id number] [address] [place] [phone] May, Generalized anxiety disorder F41.1 [facility] [address] [facility] [id number] [address] [place] [phone] May, Dysuria R30.0 [facility] [address] [facility] [id number] [address] [place] [phone] 09 May, 2019 Generalized anxiety disorder F41.1 and Bereavement Z63.4 [facility] [address] [facility] [id number] [address] [place] [phone] May, [facility] [address] [facility] [id number] [address] [place] [phone] Apr, Generalized anxiety disorder F41.1 and Bereavement Z63.4 [facility] [address] [facility] [id number] [address] [place] [phone] Apr, Generalized anxiety disorder F41.1 [facility] [address] [facility] [id number] [address] [place] [address] Mar, Caries K02.9 ; Dental examin ation Z01.20 ; Periodontitis K05.30 and Oral health maintenance status requiring routine preventive dental care K08.9 [facility] [address] [facility] [id number] [address] [place] [phone] Mar, Generalized anxiety disorder F41.1 [facility] [address] [facility] [id number] [address] [place] [phone] Mar, Gastrointestinal hemorrhage associated with gastroduodenitis K29.91 [facility] [address] [facility] [id number] [address] [place] [phone] Mar, Generalized anxiety disorder F41.1 and Bereavement Z63.4 [facility] [address] [facility] [id number] [address] [place] [phone] Mar, [facility] [address] [facility] [id number] [address] [place] [phone] Mar, [facility] [address] [facility] [id number] [address] [place] [phone] Mar, [facility] [address] [facility] [id number] [address] [place] [phone] Mar, Tachycardia R00.0 and Essent ial hypertension I10 [facility] [address] [facility] [id number] [address] [place] [id number] Feb, Generalized anxiety disorder F41.1 [facility] [address] [id number] [address] [place] [phone] Feb, Generalized anxiety disorder F41.1 and Bereavement Z63.4 [facility] [address] [id number] [address] [place] [phone] Feb, Generalized anxiety disorder F41.1 [facility] [address] [facility] [id number] [address] [place] [phone] Feb, Generalized anxiety disorder F41.1 and Bereavement Z63.4 [facility] [address] [id number] [address] [place] [phone] Jan, [facility] [address] [facility] [id number] [address] [place] [phone] Jan, Breast cancer screening by trenton crenshaw Z12.31 [facility] [address] [facility] [id number] [address] [place] [phone] Jan, Generalized anxiety disorder F41.1 and Bereavement Z63.4 [facility] [address] [facility] [id number] [address] [place] [phone] Jan, [facility] [address] [facility] [id number] [address] [place] [phone] December, Generalized anxiety disorder F41.1 and Bereavement Z63.4 [facility] [address] [facility] [id number] [address] [place] [phone] December, Diverticulitis K57.92 ; Dysu nick R30.0 ; Other constipation K59.09 and Lower abdominal pain R10.30 [facility] [address] [facility] [id number] [address] [place] [address] Nov, Diverticulitis K57.92 [facility] [address] [facility] [id number] [address] [place] [phone] Nov, Generalized anxiety disorder F41.1 and Bereavement Z63.4 [facility] [address] [facility] [id number] [address] [place] [phone] Nov, Generalized anxiety disorder F41.1 and Bereavement Z63.4 [facility] [address] [facility] [id number] [address] [place] [phone] Nov, Diverticulitis K57.92 [facility] [address] [facility] [id number] [address] [place] [phone] Oct, Diverticulitis K57.92 [facility] [address] [facility] [id number] [address] [place] [phone] Oct, Diverticulitis K57.92 [facility] [address] [place] [id number] [address] [place] [id number] Oct, Generalized anxiety disorder F41.1 [facility] [address] [facility] [id number] [address] [place] [phone] Oct, Right lower quadrant abdomin al pain R10.31 and Diverticulitis K57.92 [facility] [address] [place] [id number] [address] [place] [phone] Sep, Generalized anxiety disorder F41.1 and Bereavement Z63.4 [place] [id number] [place] [address] Aug, [facility] [address] [facility] [id number] [address] [place] [phone] Aug, Generalized anxiety disorder F41.1 and Bereavement Z63.4 [facility] [id number] [address] Aug, Caries K02.9 [facility] [address] [facility] [id number] [address] [place] [phone] Jul, Generalized anxiety disorder F41.1 and Bereavement Z63.4 [place] [address] [facility] [id number] [address] [place] [phone] Jul, Other acute gastritis withou t hemorrhage K29.00 ; Generalized anxiety disorder F41.1 ; Tachycardia R00.0 and Essential hypertension I10 [facility] [address] [facility] [id number] [address] [place] [phone] 05 Jul, 2018 Generalized anxiety disorder F41.1 and Bereavement Z63.4 [facility] [address] [facility] [id number] [address] [place] [phone] Jun, Generalized anxiety disorder F41.1 and Bereavement Z63.4 [facility] [address] [facility] [id number] [address] [place] [address] Jun, Generalized anxiety disorder F41.1 and Bereavement Z63.4 [facility] [address] [id number] [address] [address] Jun, Dental examination Z01.20 [facility] [address] [facility] [id number] [address] [place] [phone] May, Generalized anxiety disorder F41.1 and Bereavement Z63.4 [facility] [address] [facility] [id number] [address] [place] [phone] May, Encounter for immunization Z 23 [facility] [address] [facility] [id number] [address] [place] [phone] 08 May, 2018 Generalized anxiety disorder F41.1 and Bereavement Z63.4 [facility] [address] [facility] [id number] [address] [place] [phone] May, [facility] [address] [facility] [id number] [address] [place] [phone] 24 Apr, 2018 Generalized anxiety disorder F41.1 and Bereavement Z63.4 [facility] [address] [facility] [id number] [address] [place] [phone] 17 Apr, 2018 [facility] [address] [facility] [id number] [address] [place] [phone] 13 Apr, 2018 Diverticulitis K57.92 [facility] [address] [facility] [id number] [address] [place] [phone] 10 Apr, 2018 Generalized anxiety disorder F41.1 and Bereavement Z63.4 [facility] [address] [id number] [address] [place] [phone] Mar, [facility] [address] [id number] [address] [place] [address] Mar, Diverticulitis K57.92 [facility] [address] [id number] [address] [place] [phone] Mar, Generalized anxiety disorder F41.1 and Bereavement Z63.4 [facility] [address] [id number] [address] [place] [id number] Mar, Hypertension I10 [facility] [address] [id number] [address] [place] [phone] Mar, Generalized anxiety disorder F41.1 and Bereavement Z63.4 [facility] [address] [id number] [address] [place] [phone] Feb, Generalized anxiety disorder F41.1 and Bereavement Z63.4 [facility] [address] [id number] [address] [place] [phone] Feb, [facility] [address] [facility] [id number] [address] [place] [phone] Feb, Generalized anxiety disorder F41.1 and Bereavement Z63.4 [facility] [address] [facility] [id number] [address] [place] [phone] Feb, Generalized anxiety disorder F41.1 and Bereavement Z63.4 [facility] [address] [id number] [address] [place] [phone] Jan, Hypertension I10 and Acute n on-recurrent maxillary sinusitis J01.00 [facility] [address] [id number] [address] [place] [phone] December, [facility] [address] [id number] [address] [place] [phone] December, Hypertension I10 [facility] [address] [id number] [address] [place] [phone] December, Generalized anxiety disorder F41.1 [facility] [address] [id number] [place] [address] 16 Oct, 2017 Encounter for dental examina tion Z01.20 [facility] [address] [id number] [address] [place] [address] 06 Oct, 2017 Encounter for dental examina tion Z01.20 [facility] [address] [id number] [address] [place] [phone] 02 Oct, 2017 Dental examination Z01.20 [facility] [address] [id number] [address] [place] [phone] Oct, Generalized anxiety disorder F41.1 [facility] [address] [id number] [address] [place] [phone] Aug, Dental examination Z01.20 [facility] [address] [id number] [address] [place] [address] Aug, Generalized anxiety disorder F41.1 [facility] [address] [id number] [address] [place] [phone] Aug, [facility] [address] [id number] [address] [place] [address] Aug, Encounter for dental examina tion Z01.20 [facility] [address] [id number] [address] [place] [phone] Aug, Subacute maxillary sinusitis J01.00 [facility] [address] [id number] [address] [place] [address] Jul, Dental examination Z01.20 [facility] [address] [id number] [address] [place] [phone] Jul, Generalized anxiety disorder F41.1 [facility] [address] [id number] [address] [place] [address] Jul, Diverticulitis K57.92 [facility] [address] [id number] [address] [place] [phone] Jun, Encounter for immunization Z 23 [facility] [address] [id number] [address] [place] [phone] 22 Jun, 2017 Dental examination Z01.20 [facility] [address] [id number] [address] [place] [id number] 14 Jun, 2017 Generalized anxiety disorder F41.1 [facility] [address] [id number] [address] [place] [phone] 07 Jun, 2017 Dental examination Z01.20 [facility] [address] [id number] [address] [place] [phone] May, [facility] [address] [id number] [address] [place] [id number] May, Dental examination Z01.20 [facility] [address] [id number] [address] [place] [id number] May, Dental examination Z01.20 [facility] [address] [id number] [address] [place] [phone] May, Dental examination Z01.20 [facility] [address] [id number] [address] [place] [phone] May, [facility] [address] [id number] [address] [place] [phone] May, Generalized anxiety disorder F41.1 [facility] [address] [id number] [address] [place] [phone] May, Localized edema R60.0 ; Yeas t vaginitis B37.3 and Gastroesophageal reflux disease with esophagitis K21.0 [facility] [address] [id number] [address] [place] [id number] Apr, Dental examination Z01.20 [facility] [address] [id number] [address] [address] Apr, Dental examination Z01.20 [facility] [address] [id number] [address] [address] 05 Apr, 2017 Dental examination Z01.20 [facility] [address] [id number] [address] [place] [phone] Mar, Dyspepsia R10.13 [facility] [address] [id number] [address] [place] [id number] Mar, Generalized anxiety disorder F41.1 [facility] [address] [id number] [address] [address] Mar, Encounter for dental examina tion Z01.20 [facility] [address] [id number] [address] [place] [id number] Mar, [facility] [address] [id number] [address] [place] [id number] Mar, Dental examination Z01.20 [facility] [address] [id number] [address] [place] [phone] Feb, Hypertension I10 and Tachyca rdia R00.0 [facility] [address] [id number] [address] [address] Feb, [facility] [address] [id number] [address] [place] [phone] Feb, Generalized anxiety disorder F41.1 [facility] [address] [id number] [address] [place] [id number] Feb, Dental examination Z01.20 [facility] [address] [id number] [address] [place] [phone] Jan, Generalized anxiety disorder F41.1 [facility] [address] [id number] [address] [place] [phone] December, Generalized anxiety disorder F41.1 [facility] [address] [id number] [address] [place] [address] [id number] December, Encounter for dental examina tion Z01.20 [facility] [address] [id number] [address] [place] [phone] Nov, [facility] [address] [id number] [address] [place] [phone] Nov, [facility] [address] [id number] [address] [place] [phone] Nov, Generalized anxiety disorder F41.1 [facility] [address] [id number] [address] [place] [phone] Oct, [facility] [address] [id number] [address] [place] [id number] Oct, Dental examination Z01.20 [facility] [address] [id number] [address] [place] [phone] Oct, Vaginal dryness N89.8 [facility] [address] [id number] [address] [place] [phone] Oct, Pseudoseizures F44.5 [facility] [address] [facility] [id number] [address] [place] [phone] Oct, Generalized anxiety disorder F41.1 [facility] [address] [id number] [address] [place] [id number] Sep, Abnormal uterine bleeding (A UB) N93.9 ; Vaginal dryness N89.8 and Screening breast examination Z12.39 [facility] [address] [id number] [address] [place] [id number] Sep, Dental examination Z01.20 [facility] [address] [id number] [address] [place] [phone] Sep, Generalized anxiety disorder F41.1 [facility] [address] [id number] [address] [place] [id number] Sep, Unspecified ovarian cyst, ri ght side N83.201 ; Unspecified ovarian cyst, left side N83.202 ; Yeast infection of the vagina B37.3 ; Mitral valve prolapse I34.1 and Hypertension I10 [facility] [address] [facility] [id number] [address] [place] [phone] Aug, Generalized anxiety disorder F41.1 [facility] [facility] [address] [facility] [id number] [address] [place] [id number] Jul, [facility] [address] [facility] [id number] [address] [place] [phone] Jul, Generalized anxiety disorder F41.1 [facility] [address] [facility] [id number] [address] [place] [phone] Jun, Generalized anxiety disorder F41.1 [facility] [address] [facility] [id number] [address] [place] [phone] 28 May, 2016 Encounter for immunization Z 23 [facility] [address] [facility] [id number] [address] [place] [phone] 17 May, 2016 Generalized anxiety disorder F41.1 and Depressive disorder, not elsewhere classified F32.9 [facility] [address] [facility] [id number] [address] [place] [id number] 28 Apr, 2016 Hypertension I10 [facility] [address] [facility] [id number] [address] [place] [phone] 22 Apr, 2016 Cervicalgia M54.2 [facility] [address] [facility] [id number] [address] [place] [id number] 12 Apr, 2016 Cervicalgia M54.2 [facility] [address] [facility] [id number] [address] [place] [id number] 09 Mar, 2016 Generalized anxiety disorder F41.1 and Depressive disorder, not elsewhere classified F32.9 [facility] [address] [id number] [address] [place] [id number] 14 Feb, 2016 Visit for dental examination Z01.20 [facility] [address] [facility] [id number] [address] [place] [phone] 11 Feb, 2016 Pseudoseizures F44.5 ; Migra ine without status migrainosus, not intractable, unspecified migraine type G43.909 and Essential hypertension I10 [facility] [address] [id number] [address] [place] [id number] 06 Feb, 2016 Dental examination Z01.20 [facility] [address] [facility] [id number] [address] [place] [id number] 05 Feb, 2016 Generalized anxiety disorder F41.1 and Depressive disorder, not elsewhere classified F32.9 [facility] [address] [facility] [id number] [address] [place] [phone] 27 Jan, 2016 Tachycardia R00.0 [place] [address] [facility] [id number] [address] [place] [phone] December, Eustachian tube dysfunction, bilateral H69.83 [facility] [address] [facility] [id number] [address] [place] [id number] December, Generalized anxiety disorder F41.1 and Depressive disorder, not elsewhere classified F32.9 [facility] [address] [place] [id number] [address] [place] [phone] Nov, [place] [address] [place] [id number] [address] [place] [phone] Nov, [facility] [address] [place] [id number] [address] [place] [phone] 20 Nov, 2015 Hypertension I10 ; Onychomyc osis B35.1 ; [...] and Complex cyst of left ovary N83.29 [place] [address] [place] [id number] [address] [place] [id number] 14 Nov, 2015 Sinusitis J32.9 [place] [address] [place] [id number] [address] [place] [phone] Oct, Complex cyst of left ovary N 83.29 [place] [address] [place] [id number] [address] [place] [phone] Oct, Onychomycosis B35.1 [facility] [address] [place] [id number] [address] [place] [address] [id number] 17 Oct, 2015 Dental examination Z01.20 [place] [address] [id number] 09 Oct, 2015 Well woman exam Z01.419 ; En counter [...] R92.2 and History of colon polyps Z86.010 [place] [address] [place] [id number] [address] [place] [phone] Oct, Generalized anxiety disorder F41.1 and Depressive disorder, not elsewhere classified F32.9 [place] [address] [place] [id number] [address] [place] [phone] Sep, Hypertension I10 and Onychom ycosis B35.1 [place] [address] [id number] Sep, Skin tags, multiple acquired L91.8 [place] [address] [place] [id number] [address] [place] [phone] Aug, [place] [address] [place] [address] Aug, [facility] [address] [id number] [address] [place] [phone] Aug, [facility] [address] [id number] [address] [place] [phone] Aug, Generalized anxiety disorder F41.1 and Depressive disorder, not elsewhere classified F32.9 [facility] [address] [id number] [address] [place] [phone] Jul, Skin lesion L98.9 [facility] [address] [id number] [address] [place] [id number] Jun, Generalized anxiety disorder F41.1 and Depressive disorder, not elsewhere classified F32.9 [facility] [address] [id number] [address] [place] [phone] Jun, [facility] [address] [facility] [id number] [address] [place] [phone] Jun, Generalized anxiety disorder F41.1 [facility] [address] [id number] [address] [place] [phone] May, Encounter for immunization Z 23 and Right shoulder pain M25.511 [facility] [address] [id number] [address] [place] [id number] Apr, [facility] [address] [id number] [address] [place] [id number] 14 Apr, 2015 Generalized anxiety disorder 300.02 and Depressive disorder, not elsewhere classified 311 [facility] [address] [id number] [address] [place] [address] [id number] Mar, Dental examination V72.2 [facility] [address] [id number] [address] [place] [phone] Mar, Generalized anxiety disorder 300.02 and Depressive disorder, not elsewhere classified 311 [facility] [address] [id number] [address] [place] [phone] Mar, Depression, major, recurrent , 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.35 and 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 [facility] [address] [id number] [address] [place] [phone] Feb, Generalized anxiety disorder 300.02 and Depressive disorder, not elsewhere classified 311 [facility] [address] [id number] [address] [place] [address] [id number] 07 Feb, 2015 Dental examination V72.2 [facility] [address] [id number] [address] [place] [phone] 09 Jan, 2015 Generalized anxiety disorder 300.02 and Depressive disorder, not elsewhere classified 311 [facility] [address] [facility] [id number] [address] [place] [phone] Jan, [facility] [address] [facility] [id number] [address] [place] [phone] December, Generalized anxiety disorder 300.02 and Depressive disorder, not elsewhere classified 311 [facility] [address] [facility] [id number] [address] [place] [id number] December, Major depressive disorder, r ecurrent, unspecified 296.30 and Panic disorder with agoraphobia 300.21 [facility] [address] [facility] [id number] [address] [place] [phone] Nov, [facility] [address] [facility] [id number] [address] [place] [phone] Nov, [facility] [address] [facility] [id number] [address] [place] [id number] Oct, [facility] [address] [facility] [id number] [address] [place] [phone] Oct, [facility] [address] [facility] [id number] [address] [place] [phone] Oct, [facility] [address] [facility] [id number] [address] [place] [phone] Oct, [facility] [address] [facility] [id number] [address] [place] [phone] Sep, 2014 [facility] [address] [id number] [address] [place] [address], [place] [address] Sep, 2014 [facility] [address] [id number] [address] [place] [address], [place] [address] Sep, 2014 [facility] [address] [id number] [address] [place] [address], [place] [address] Sep, 2014 [facility] [address] [id number] [address] [place] [address], [place] [address] Sep, 2014 [facility] [address] [id number] [address] [place] [address], [place] [address] Sep, 2014 [facility] [address] [id number] [address] [place] [address], [place] [address] Sep, 2014 [facility] [address] [id number] [address] [place] [address], [place] [address] Sep, 2014 [facility] [address] [id number] [address] [place] [address], [place] [address] Sep, 2014 [facility] [address] [id number] [address] [place] [address], [place] [address] Sep, 2014 [facility] [address] [id number] [address] [place] [address], [place] [address] Aug, [facility] [address] [id number] [address] [place] [address], [place] [address] Aug, [facility] [address] [id number] [address] [place] [address], [place] [address] Jul, [facility] [address] [id number] [address] [place] [address], [place] [address] Jul, [facility] [address] [id number] [address] [place] [address], [place] [address] Jul, [facility] [address] [id number] [address] [place] [address], [place] [address] Jul, [facility] [address] [id number] [address] [place] [address], [place] [address] Jul, [facility] [address] [id number] [address] [place] [address], [place] [address] Jul, [facility] [address] [id number] [address] [place] [address], [place] [address] Jul, [facility] [address] [id number] [address] [place] [address], [place] [address] Jul, [facility] [address] [id number] [address] [place] [address], [place] [address] Jul, [facility] [address] [id number] [address] [place] [address], [place] [address] Jul, [facility] [address] [id number] [address] [place] [address], [place] [address] Jul, [facility] [address] [id number] [address] [place] [address], [place] [address] Jul, [facility] [address] [id number] [address] [place] [address], [place] [address] Jun, [facility] [address] [id number] [address] [place] [address], [place] [address] Jun, [facility] [address] [id number] [address] [place] [address], [place] [address] May, [facility] [address] [id number] [address] [place] [address], [place] [address] May, [facility] [address] [id number] [address] [place] [address], [place] [address] May, [facility] [address] [id number] [address] [place] [address], [place] [address] May, [facility] [address] [id number] [address] [place] [address], [place] [address] May, [facility] [address] [id number] [address] [place] [address], [place] [address] May, [facility] [address] [id number] [address] [place] [address], [place] [address] May, [facility] [address] [id number] [address] [place] [address], [place] [address] May, [facility] [address] [id number] [address] [place] [address], [place] [address] May, [facility] [address] [id number] [address] [place] [address], [place] [address] May, [facility] [address] [id number] [address] [place] [address], [place] [address] May, [facility] [address] [id number] [address] [place] [address], [place] [address] May, [facility] [address] [id number] [address] [place] [address], [place] [address] 30 Apr, 2014 [facility] [address] [id number] [address] [place] [address], [place] [address] 30 Apr, 2014 [facility] [address] [id number] [address] [place] [address], [place] [address] 29 Apr, 2014 [facility] [address] [id number] [address] [place] [address], [place] [address] 29 Apr, 2014 [facility] [address] [id number] [address] [place] [address], [place] [address] Apr, [facility] [address] [id number] [address] [place] [address], [place] [address] Apr, [facility] [address] [id number] [address] [place] [address], [place] [address] Feb, [facility] [address] [id number] [address] [place] [address], [place] [address] Feb, [facility] [address] [id number] [address] [place] [address], [place] [address] Feb, [facility] [address] [id number] [facility] [place] [address] Feb, [facility] [address] [id number] [address] [place] [address], [place] [address] Feb, [facility] [address] [id number] [facility] [place] [address] Feb, [facility] [address] [id number] [address] [place] [address], [place] [address] Jan, [facility] [address] [id number] [address] [place] [address], [place] [address] Jan, [facility] [address] [id number] [address] [place] [address], [place] [address] Jan, [facility] [address] [id number] [address] [place] [address], [place] [address] Jan, [facility] [address] [id number] [address] [place] [address], [place] [address] Jan, [facility] [address] [id number] [address] [place] [address], [place] [address] Jan, [facility] [address] [id number] [address] [place] [address], [place] [address] Jan, [facility] [address] [id number] [address] [place] [address], [place] [address] Jan, [facility] [address] [id number] [address] [place] [address], [place] [address] December, [facility] [address] [id number] [address] [place] [address], [place] [address] December, [facility] [address] [id number] [address] [place] [address], [place] [address] December, [facility] [address] [id number] [address] [place] [address], [place] [address] December, [facility] [address] [id number] [address] [place] [address], [place] [address] Nov, [facility] [address] [id number] [facility] [place] [address] Nov, [facility] [address] [id number] [address] [place] [address], [place] [address] Nov, [facility] [address] [id number] [facility] [place] [address] Nov, [facility] [address] [id number] [address] [place] [address], [place] [address] Nov, [facility] [address] [id number] [address] [place] [address], [place] [address] Nov, [facility] [address] [id number] [address] [place] [address], [place] [address] Nov, [facility] [address] [id number] [address] [place] [address], [place] [address] Nov, [facility] [address] [id number] [address] [place] [address], [place] [address] Oct, [facility] [address] [id number] [address] [place] [address], [place] [address] Oct, [facility] [address] [id number] [address] [place] [address], [place] [address] Sep, [facility] [address] [id number] [address] [place] [address], [place] [address] Sep, [facility] [address] [id number] [address] [place] [id number] Sep, [facility] [address] [id number] [address] [place] [address], [place] [address] Sep, [facility] [address] [id number] [address] [place] [address], [place] [address] Sep, [facility] [address] [id number] [address] [place] [address], [place] [address] Sep, [facility] [address] [id number] [address] [place] [address], [place] [address] 15 Aug, 2013 [facility] [address] [id number] [address] [place] [address], [place] [address] Aug, [facility] [address] [id number] [address] [place] [address], [place] [address] Aug, [facility] [address] [id number] [address] [place] [address], [place] [address] Aug, [facility] [address] [id number] [address] [place] [address], [place] [address] Jul, [facility] [address] [id number] [address] [place] [address], [place] [address] Jul, [facility] [address] [id number] [address] [place] [address], [place] [address] Jul, [facility] [address] [id number] [address] [place] [address], [place] [address] Jul, [facility] [address] [id number] [address] [place] [address], [place] [address] Jun, [facility] [address] [id number] [address] [place] [address], [place] [address] Jun, [facility] [address] [id number] [address] [place] [address], [place] [address] May, [facility] [address] [id number] [address] [place] [address], [place] [address] 24 May, 2013 [facility] [address] [id number] [address] [place] [address], [place] [address] May, [facility] [address] [id number] [address] [place] [address], [place] [address] May, [facility] [address] [id number] [address] [place] [address], [place] [address] 10 May, 2013 [facility] [address] [id number] [address] [place] [address], [place] [address] Apr, [facility] [address] [id number] [address] [place] [address], [place] [address] Apr, [facility] [address] [id number] [address] [place] [address], [place] [address] Mar, [facility] [address] [id number] [address] [place] [address], [place] [address] Mar, [facility] [address] [id number] [address] [place] [address], [place] [address] Mar, [facility] [address] [id number] [address] [place] [address], [place] [address] Mar, [facility] [address] [id number] [address] [place] [address], [place] [address] Feb, [facility] [address] [id number] [address] [place] [address], [place] [address] Feb, [facility] [address] [id number] [address] [place] [address], [place] [address] Feb, [facility] [address] [id number] [address] [place] [address], [place] [address] Feb, [facility] [address] [id number] [address] [place] [address], [place] [address] Feb, [facility] [address] [id number] [address] [place] [address], [place] [address] Jan, [facility] [address] [id number] [address] [place] [address], [place] [address] Jan, [facility] [address] [id number] [address] [place] [address], [place] [address] Jan, [facility] [address] [id number] [address] [place] [address], [place] [address] Jan, [facility] [address] [id number] [address] [place] [address], [place] [address] Jan, [facility] [address] [id number] [address] [place] [address], [place] [address] December, [facility] [address] [id number] [address] [place] [address], [place] [address] December, [facility] [address] [id number] [address] [place] [address], [place] [address] Nov, [facility] [address] [id number] [address] [place] [address], [place] [address] Nov, [facility] [address] [id number] [address] [place] [address], [place] [address] Oct, [facility] [address] [id number] [address] [place] [address], [place] [address] Oct, [facility] [address] [id number] [address] [place] [address], [place] [address] 05 Oct, 2012 [facility] [address] [id number] [address] [place] [address], [place] [address] 14 Sep, 2012 [facility] [address] [id number] [address] [place] [address], [place] [address] Aug, [facility] [address] [id number] [address] [place] [address], [place] [address] Aug, [facility] [address] [id number] [address] [place] [address], [place] [address] Aug, [facility] [address] [id number] [address] [place] [address], [place] [address] Aug, [facility] [address] [id number] [address] [place] [address], [place] [address] Jul, [facility] [address] [id number] [address] [place] [address], [place] [address] Jul, [facility] [address] [id number] [address] [place] [address], [place] [address] Jul, [facility] [address] [id number] [address] [place] [address], [place] [address] Jul, [facility] [address] [id number] [address] [place] [address], [place] [address] Jul, [facility] [address] [id number] [address] [place] [address], [place] [address] Jul, [facility] [address] [id number] [address] [place] [address], [place] [address] Jul, [facility] [address] [id number] [address] [place] [address], [place] [address] Jul, [facility] [address] [id number] [address] [place] [address], [place] [address] Jun, [facility] [address] [id number] [address] [place] [address], [place] [address] Jun, [facility] [address] [id number] [address] [place] [address], [place] [address] Jun, [facility] [address] [id number] [address] [place] [address], [place] [address] Jun, [facility] [address] [id number] [address] [place] [address], [place] [address] Jun, [facility] [address] [id number] [address] [place] [address], [place] [address] Jun, [facility] [address] [id number] [address] [place] [address], [place] [address] May, [facility] [address] [id number] [address] [place] [address], [place] [address] May, [facility] [address] [id number] [address] [place] [address], [place] [address] May, [facility] [address] [id number] [address] [place] [address], [place] [address] May, [facility] [address] [id number] [address] [place] [address], [place] [address] Apr, [facility] [address] [id number] [address] [place] [address], [place] [address] Apr, [facility] [address] [id number] [address] [place] [address], [place] [address] 08 Mar, 2012 [facility] [address] [id number] [address] [place] [address], [place] [address] 28 Jan, 2012 [facility] [address] [id number] [address] [place] [address], [place] [address] 20 Jan, 2012 [facility] [address] [id number] [address] [place] [address], [place] [address] 16 Jan, 2012 [facility] [address] [id number] [address] [place] [address], [place] [address] 15 Jan, 2012 [facility] [address] [id number] [address] [place] [address], [place] [address] 14 Jan, 2012 [facility] [address] [id number] [address] [place] [address], [place] [address] 14 Jan, 2012 [facility] [address] [id number] [address] [place] [address], [place] [address] 07 Jan, 2012 [facility] [address] [id number] [address] [place] [address], [place] [address] December, [facility] [address] [id number] [address] [place] [address], [place] [address] December, [facility] [address] [id number] [address] [place] [address], [place] [address] December, [facility] [address] [id number] [address] [place] [address], [place] [address] December, [facility] [address] [id number] [address] [place] [address], [place] [address] Nov, [facility] [address] [id number] [address] [place] [address], [place] [address] Nov, [facility] [address] [id number] [address] [place] [address], [place] [address] Oct, [facility] [address] [id number] [address] [place] [address], [place] [address] 28 Oct, 2011 [facility] [address] [id number] [address] [place] [address], [place] [address] Oct, [facility] [address] [id number] [address] [place] [address], [place] [address] Sep, [facility] [address] [id number] [address] [place] [address], [place] [address] Sep, [facility] [address] [id number] [address] [place] [address], [place] [address] Sep, [facility] [address] [id number] [address] [place] [address], [place] [address] Aug, [facility] [address] [id number] [address] [place] [address], [place] [address] Aug, [facility] [address] [id number] [address] [place] [address], [place] [address] Aug, [facility] [address] [id number] [address] [place] [address], [place] [address] Aug, [facility] [address] [id number] [address] [place] [address], [place] [address] Aug, [facility] [address] [id number] [address] [place] [address], [place] [address] Aug, [facility] [address] [id number] [address] [place] [address], [place] [address] Aug, [facility] [address] [id number] [address] [place] [address], [place] [address] Jul, [facility] [address] [id number] [address] [place] [address], [place] [address] Jul, [facility] [address] [id number] [address] [place] [address], [place] [address] Jun, [facility] [address] [id number] [address] [place] [address], [place] [address] Jun, [facility] [address] [id number] [address] [place] [address], [place] [address] 17 Jun, 2011 [facility] [address] [id number] [address] [place] [address], [place] [address] 15 Jun, 2011 [facility] [address] [id number] [address] [place] [address], [place] [address] 14 Jun, 2011 [facility] [address] [id number] [address] [place] [address], [place] [address] 14 Jun, 2011 [facility] [address] [id number] [address] [place] [address], [place] [address] Jun, [facility] [address] [id number] [address] [place] [address], [place] [address] Jun, [facility] [address] [id number] [address] [place] [address], [place] [address] Jun, [facility] [address] [id number] [address] [place] [address], [place] [address] Jun, [facility] [address] [id number] [address] [place] [address], [place] [address] May, [facility] [address] [id number] [address] [place] [address], [place] [address] May, [facility] [address] [id number] [address] [place] [address], [place] [address] May, [facility] [address] [id number] [address] [place] [id number] 24 May, 2011 [facility] [address] [id number] [address] [place] [address], [place] [address] 18 May, 2011 [facility] [address] [id number] [address] [place] [address], [place] [address] May, [facility] [address] [id number] [address] [place] [id number] Feb, [facility] [address] [id number] [address] [place] [address] December, [facility] [address] [id number] [address] [place] [id number] Jul, [facility] [address] [id number] [address] [place] [id number] Jul, [facility] [address] [id number] [address] [place] [address] Jul, [facility] [address] [id number] [address] [place] [id number] Jul, [facility] [address] [id number] [address] [place] [phone] Jun, [facility] [address] [id number] [address] [place] [phone] Jul, [facility] [address] [id number] [address] [place] [id number] Jul, [facility] [address] [id number] [address] [place] [id number] Jul, [facility] [address] [id number] [address] [place] [id number] Jul, [facility] [address] [id number] [address] [place] [id number] Jul, [facility] [address] [id number] [address] [place] [id number] Jul, [facility] [address] [id number] [address] [place] [phone] Jan, [facility] [address] [id number] [address] [place] [id number] 16 Sep, 2008 [facility] [address] [id number] [address] [place] [id number] 11 Sep, 2008 IMMUNIZATIONS No Known Immunizations [...]
--- OUTSIDE RECORDS SUMMARY | 2020-01-27 09:58 | XMS REPORT ---
Author Author MARYSOL Silvia TREVINO [facility] Address [address] [place] [address] Care Team Providers Care Crate Opener Name Role Phone BELINDA GREGG Unavailable PROBLEMS Type Condition ICD9-CM Code [id number] Code Onset Dates Condition S tatus SNOMED Code Problem Hypertension I10 Active 2126407 3 Problem Generalized anxiety disorder F41.1 A ctive 605240186 Problem History of colon polyps Z86.010 Active 961186839 Problem History of diverticulitis Z87.19 Acti ve [id number] Problem Family history of diabetes mellitus Z83.3 Active 291066563 Problem Excessive and frequent menstruation with irregular cycle N92.1 Active 701715490 Problem Hot flashes N95.1 Active 17471145 8 Problem Gastroesophageal reflux disease with esophagitis K 21.0 Active 774295668 Problem History of ovarian cyst Z87.42 Active 78656039 Problem Diverticulitis K57.92 Active 51821 6006 Problem Dense breast tissue R92.2 Active 622040149 Problem Perimenopausal N95.1 Active 96915 5944360995 Problem Mitral valve prolapse I34.1 Active 560034321 Problem Abnormal uterine bleeding (AUB) N93.9 Active 07077442391900 Problem Tachycardia R00.0 Active 6161530 ALLERGIES Substance Reaction Event Type Date Status Sulfamethoxazole-Trimethoprim anaphylaxis Drug Allergy Oct, 9 Active Erythromycin rash Drug Allergy Oct, Active Hydrocodone vomiting Non Drug Allergy Oct, Active ENCOUNTERS Encounter Location Date Diagnosis [facility] [address] [facility] [id number] [address] [place] [phone] Jan, [facility] [address] [facility] [id number] [address] [place] [phone] Jan, [facility] [address] [facility] [id number] [address] [place] [phone] December, Generalized anxiety disorder F41.[address] [facility] [address] [id number] [address] [place] [id number] 30 Nov, 2019 Generalized anxiety disorder F41.[address] [facility] [address] [id number] [address] [place] [phone] 16 Nov, 2019 Generalized anxiety disorder F41.[address] [facility] [address] [id number] [address] [place] [phone] 13 Nov, 2019 [facility] [address] [id number] [address] [place] [id number] 08 Nov, 2019 [facility] [address] [id number] [address] [place] [phone] 06 Nov, 2019 Generalized anxiety disorder F41.1 [facility] [address] [id number] [address] [place] [phone] 30 Oct, 2019 Generalized anxiety disorder F41.1 [address]4 [facility] [address] [id number] [address] [place] [phone] 16 Oct, 2019 Acute non-recurrent sinusiti s, unspecified location J01.90 [facility] [address] [id number] [address] [place] [phone] 05 Oct, 2019 Acute non-recurrent frontal sinusitis J01.10 [facility] [address] [id number] [address] [place] [address] 27 Sep, 2019 Generalized anxiety disorder F41.1 [address].4 [facility] [address] [id number] [address] [place] [phone] 17 Sep, 2019 [facility] [address] [id number] [address] [place] [phone] 11 Sep, 2019 Generalized anxiety disorder F41.1 [address] [facility] [address] [id number] [address] [place] [phone] Aug, Generalized anxiety disorder F41.[address] [facility] [address] [facility] [id number] [address] [place] [address] Aug, Generalized anxiety disorder F41.1 [facility] [address] [facility] [id number] [address] [place] [address] Aug, Viral upper respiratory trac t infection J06.9 [facility] [address] [facility] [id number] [address] [place] [phone] Jul, Generalized anxiety disorder F41.[address] [facility] [address] [facility] [id number] [address] [place] [phone] Jul, Acute non-recurrent frontal sinusitis J01.10 [facility] [address] [facility] [id number] [address] [place] [phone] Jul, [facility] [address] [facility] [id number] [address] [place] [address] Jul, Sore throat J02.9 [address] K[address]2 [facility] [address] [facility] [id number] [address] [place] [address] Jul, Generalized anxiety disorder F41.1 [facility] [address] [facility] [id number] [address] [address] Jul, [address] [facility] [address] [facility] [id number] [address] [place] [address] Jun, Generalized anxiety disorder F41.1 [facility] [address] [facility] [id number] [address] [place] [address] Jun, Generalized anxiety disorder F41.[address] [facility] [address] [facility] [id number] [address] [place] [address] May, Generalized anxiety disorder F41.1 [facility] [address] [facility] [id number] [address] [place] [address] May, Dysuria R30.0 [facility] [address] [facility] [id number] [address] [place] [address] May, Generalized anxiety disorder F41.[address] [facility] [address] [facility] [id number] [address] [place] [phone] May, [facility] [address] [facility] [id number] [address] [place] [phone] Apr, Generalized anxiety disorder F41.[address] [facility] [address] [facility] [id number] [address] [place] [address] Apr, Generalized anxiety disorder F41.1 [facility] [address] [id number] [address] [place] [address] Mar, Caries K02.9 ; Dental examin ation Z01.20 ; Periodontitis K05.30 and Oral health maintenance status requiring routine preventive dental care K08.9 [facility] [address] [facility] [id number] [address] [place] [address] Mar, Generalized anxiety disorder F41.1 [facility] [address] [facility] [id number] [address] [place] [address] Mar, Gastrointestinal hemorrhage associated with gastroduodenitis K29.91 [facility] [address] [facility] [id number] [address] [place] [phone] Mar, Generalized anxiety disorder F41.1 [address].4 [facility] [address] [facility] [id number] [address] [place] [address] Mar, [facility] [address] [facility] [id number] [address] [place] [address] Mar, [facility] [address] [facility] [id number] [address] [place] [phone] Mar, [facility] [address] [facility] [id number] [address] [place] [address] Mar, Tachycardia R00.0 and Essent ial hypertension I10 [facility] [address] [facility] [id number] [address] [place] [address] Feb, Generalized anxiety disorder F41.1 [facility] [address] [facility] [id number] [address] [place] [phone] Feb, Generalized anxiety disorder F41.1 [address]4 [facility] [address] [facility] [id number] [address] [place] [address] Feb, Generalized anxiety disorder F41.1 [facility] [address] [place] [id number] [address] [place] [address] Feb, Generalized anxiety disorder F41.1 and Bereavement Z63.4 [facility] [address] [place] [id number] [address] [place] [address] Jan, [facility] [address] [place] [id number] [address] [place] [address] Jan, Breast cancer screening by trenton crenshaw Z12.31 [place] [address] [place] [id number] [address] [place] [address] Jan, Generalized anxiety disorder F41.[address]4 [facility] [address] [place] [id number] [address] [place] [address] Jan, [facility] [address] [place] [id number] [address] [place] [address] December, Generalized anxiety disorder F41.[address] [facility] [address] [facility] [id number] [address] [place] [phone] December, Diverticulitis K57.92 ; Dysu nick R30.0 ; Other constipation K59.09 and Lower abdominal pain R10.30 [facility] [address] [facility] [id number] [address] [place] [address] Nov, Diverticulitis K57.92 [facility] [address] [facility] [id number] [address] [place] [address] Nov, Generalized anxiety disorder F41.1 [address] [facility] [address] [facility] [id number] [address] [place] [address] Nov, Generalized anxiety disorder F41.[address] [facility] [address] [facility] [id number] [address] [place] [address] Nov, Diverticulitis K57.92 [facility] [address] [facility] [id number] [address] [place] [address] Oct, Diverticulitis K57.92 [facility] [address] [facility] [id number] [address] [place] [address] Oct, Diverticulitis K57.92 [facility] [address] [facility] [id number] [address] [place] [address] Oct, Generalized anxiety disorder F41.1 [facility] [address] [facility] [id number] [address] [place] [address] Oct, Right lower quadrant abdomin al pain R10.[address] [facility] [address] [facility] [id number] [address] [place] [address] Sep, Generalized anxiety disorder F41.1 [address].4 [facility] [address] [facility] [id number] [address] [place] [phone] Aug, [facility] [address] [facility] [id number] [address] [place] [address] Aug, Generalized anxiety disorder F41.1 and Bereavement Z63.4 [facility] [address] [facility] [id number] [place] [address] Aug, [address]02.9 [facility] [address] [facility] [id number] [address] [place] [address] Jul, Generalized anxiety disorder F41.1 [address]4 [facility] [address] [facility] [id number] [address] [place] [phone] Jul, Other acute gastritis withou t hemorrhage K29.00 ; Generalized anxiety disorder F41.1 ; Tachycardia R00.0 and Essential hypertension I10 [facility] [address] [facility] [id number] [address] [place] [address] Jul, Generalized anxiety disorder F41.[address] [facility] [address] [facility] [id number] [address] [place] [address] Jun, Generalized anxiety disorder F41.[address] [facility] [address] [facility] [id number] [address] [place] [address] Jun, Generalized anxiety disorder F41.1 and Bereavement Z63.4 [facility] [address] [facility] [id number] [place] [address] Jun, Dental examination Z01.20 [facility] [address] [facility] [id number] [address] [place] [address] 22 May, 2018 Generalized anxiety disorder F41.1 [address]4 [facility] [address] [facility] [id number] [address] [place] [address] 08 May, 2018 Encounter for immunization Z 23 [facility] [address] [facility] [id number] [address] [place] [phone] 08 May, 2018 Generalized anxiety disorder F41.1 [address]63.4 [facility] [address] [facility] [id number] [address] [place] [phone] May, [facility] [address] [facility] [id number] [address] [place] [address] 24 Apr, 2018 Generalized anxiety disorder F41.1 [address]63.4 [facility] [address] [facility] [id number] [address] [place] [address] Apr, [facility] [address] [id number] [address] [place] [address] Apr, Diverticulitis K57.92 [facility] [address] [id number] [address] [place] [address] Apr, Generalized anxiety disorder F41.1 and Bereavement Z63.4 [facility] [address] [id number] [address] [place] [phone] Mar, [facility] [address] [id number] [address] [place] [address] Mar, Diverticulitis K57.92 [facility] [address] [id number] [address] [place] [address] Mar, Generalized anxiety disorder F41.1 [address].4 [facility] [address] [facility] [id number] [address] [place] [address] Mar, Hypertension I10 [facility] [address] [id number] [address] [place] [address] Mar, Generalized anxiety disorder F41.1 [address]63.4 [facility] [address] [facility] [id number] [address] [place] [address] Feb, Generalized anxiety disorder F41.1 [address] Z63.4 [facility] [address] [facility] [id number] [address] [place] [address] Feb, [facility] [address] [id number] [address] [place] [address] Feb, Generalized anxiety disorder F41.1 [address]63.4 [facility] [address] [facility] [id number] [address] [place] [address] Feb, Generalized anxiety disorder F41.1 [address]4 [facility] [address] [facility] [id number] [address] [place] [address] Jan, Hypertension I10 and Acute n on-recurrent maxillary sinusitis J01.00 [facility] [address] [id number] [address] [place] [address] December, [facility] [address] [id number] [address] [place] [address] December, Hypertension I10 [facility] [address] [id number] [address] [place] [address] December, Generalized anxiety disorder F41.1 [facility] [address] [id number] [address] [place] [address] Oct, Encounter for dental examina tion Z01.20 [facility] [address] [id number] [address] [place] [address] Oct, Encounter for dental examina tion Z01.20 [facility] [address] [id number] [address] [place] [address] Oct, Dental examination Z01.20 [facility] [address] [id number] [address] [place] [address] Oct, Generalized anxiety disorder F41.1 [facility] [address] [id number] [address] [place] [address] Aug, Dental examination Z01.20 [facility] [address] [id number] [address] [place] [address] Aug, Generalized anxiety disorder F41.1 [facility] [address] [id number] [address] [place] [address] Aug, [facility] [address] [id number] [address] [place] [address] Aug, Encounter for dental examina tion Z01.20 [facility] [address] [id number] [address] [place] [address] Aug, Subacute maxillary sinusitis J01.00 [facility] [address] [id number] [place] [address] 22 Jul, [address] [facility] [address] [id number] [address] [place] [address] 19 Jul, 2017 Generalized anxiety disorder F41.1 [facility] [address] [id number] [address] [place] [address] 11 Jul, [address] [facility] [address] [id number] [address] [place] [address] 28 Jun, 2017 Encounter for immunization Z 23 [facility] [address] [id number] [address] [place] [address] 22 Jun, [address] [facility] [address] [id number] [address] [place] [address] 14 Jun, 2017 Generalized anxiety disorder F41.1 [facility] [address] [id number] [address] [place] [address] 07 Jun, [address] [facility] [address] [id number] [address] [place] [address] May, [facility] [address] [id number] [address] [place] [address] [id number] May, Dental examination Z01.20 [facility] [address] [id number] [address] [place] [address] [id number] May, Dental examination Z01.20 [facility] [address] [id number] [address] [place] [address] May, Dental examination Z01.20 [facility] [address] [id number] [address] [place] [address] May, [facility] [address] [id number] [address] [place] [id number] May, Generalized anxiety disorder F41.1 [facility] [address] [id number] [address] [place] [phone] May, Localized edema R60.0 ; Yeas t vaginitis B37.3 and Gastroesophageal reflux disease with esophagitis K21.0 [facility] [address] [id number] [address] [place] [address] [id number] Apr, Dental examination Z01.20 [facility] [address] [id number] [address] [place] [address] Apr, Dental examination Z01.20 [facility] [address] [id number] [address] [place] [address] 05 Apr, [address] [facility] [address] [id number] [address] [place] [address] Mar, Dyspepsia R10.13 [facility] [address] [id number] [address] [place] [address] Mar, Generalized anxiety disorder F41.1 [facility] [address] [id number] [address] [place] [address] Mar, Encounter for dental examina tion Z01.20 [facility] [address] [id number] [address] [place] [address] [id number] Mar, [facility] [address] [id number] [address] [place] [address] [id number] Mar, Dental examination Z01.20 [facility] [address] [id number] [address] [place] [address] Feb, Hypertension I10 and Tachyca rdia R00.0 [facility] [address] [id number] [address] [place] [address] Feb, [facility] [address] [id number] [address] [place] [address] Feb, Generalized anxiety disorder F41.1 [facility] [address] [id number] [address] [place] [address] [id number] Feb, Dental examination Z01.20 [facility] [address] [id number] [address] [place] [address] Jan, Generalized anxiety disorder F41.1 [facility] [address] [id number] [address] [place] [address] December, Generalized anxiety disorder F41.1 [facility] [address] [id number] [address] [place] [address] [id number] December, Encounter for dental examina tion Z01.20 [facility] [address] [id number] [address] [place] [phone] Nov, [facility] [address] [id number] [address] [place] [phone] Nov, [facility] [address] [id number] [address] [place] [phone] Nov, Generalized anxiety disorder F41.1 [facility] [address] [id number] [address] [place] [phone] Oct, [facility] [address] [id number] [address] [place] [address] [id number] Oct, Dental examination Z01.20 [facility] [address] [id number] [address] [place] [address] Oct, Vaginal dryness N89.8 [facility] [address] [id number] [address] [place] [phone] Oct, Pseudoseizures F44.5 [facility] [address] [id number] [address] [place] [address] Oct, Generalized anxiety disorder F41.1 [facility] [address] [id number] [address] [place] [phone] Sep, Abnormal uterine bleeding (A UB) N93.9 ; Vaginal dryness N89.8 and Screening breast examination Z12.39 [facility] [address] [id number] [address] [place] [address] Sep, Dental examination Z01.20 [facility] [address] [facility] [id number] [address] [place] [address] Sep, Generalized anxiety disorder F41.1 [facility] [address] [facility] [id number] [address] [place] [phone] 06 Sep, 2016 Unspecified ovarian cyst, ri ght side N83.201 ; Unspecified ovarian cyst, left side N83.202 ; Yeast infection of the vagina B37.3 ; Mitral valve prolapse I34.[address] [facility] [address] [facility] [id number] [address] [place] [phone] Aug, Generalized anxiety disorder F41.1 [facility] [address] [facility] [id number] [address] [place] [phone] Jul, [facility] [address] [place] [id number] [place] [phone] Jul, Generalized anxiety disorder F41.1 [facility] [address] [facility] [id number] [address] [place] [phone] Jun, Generalized anxiety disorder F41.1 [facility] [address] [place] [id number] [address] [place] [phone] May, Encounter for immunization Z 23 [facility] [address] [place] [id number] [address] [place] [phone] 17 May, 2016 Generalized anxiety disorder F41.1 and Depressive disorder, not elsewhere classified F32.9 [facility] [address] [facility] [id number] [address] [place] [phone] 28 Apr, [address] [facility] [address] [facility] [id number] [address] [place] [phone] 22 Apr, 2016 Cervicalgia M54.2 [facility] [address] [facility] [id number] [address] [place] [phone] 12 Apr, [address] [facility] [id number] [place] [phone] 09 Mar, 2016 Generalized anxiety disorder F41.1 and Depressive disorder, not elsewhere classified F32.9 [facility] [address] [id number] [address] [place] [id number] 14 Feb, 2016 Visit for dental examination Z01.20 [facility] [address] [facility] [id number] [address] [place] [phone] 11 Feb, 2016 Pseudoseizures F44.5 ; Migra ine without status migrainosus, not intractable, unspecified migraine type G43.909 and Essential hypertension I10 [facility] [address] ST [id number] [address] [place] [address] [id number] 06 Feb, [address] [facility] [address] [id number] [address] [place] [id number] 05 Feb, 2016 Generalized anxiety disorder F41.1 and Depressive disorder, not elsewhere classified F32.9 [facility] [address] [facility] [id number] [address] [place] [address] 27 Jan, [address] [facility] [address] [id number] [address] [place] [address] December, Eustachian tube dysfunction, bilateral H69.83 [facility] [address] [facility] [id number] [address] [place] [address] December, Generalized anxiety disorder F41.1 and Depressive disorder, not elsewhere classified F32.9 [facility] [address] [facility] [id number] [address] [place] [address] Nov, [facility] [address] [id number] [address] [place] [address] Nov, [facility] [address] [facility] [id number] [address] [place] [address] Nov, Hypertension I10 ; Onychomyc osis B35.1 [...] and Complex cyst of left ovary N83.29 [place] [address] [place] [id number] [address] [place] [address] 14 Nov, 2015 Sinusitis J32.9 [place] [address] [address] Oct, Complex cyst of left ovary N 83.29 [place] [address] [address] Oct, Onychomycosis B35.1 [facility] [id number] [place] [address] [id number] Oct, Dental examination Z01.[address] [id number] 09 Oct, 2015 Well woman exam Z01.419 [...] R92.2 and History of colon polyps Z86.010 [place] [address] [place] [id number] [address] [place] [address] Oct, Generalized anxiety disorder F41.1 and Depressive disorder, not elsewhere classified F32.9 [place] [id number] [address] [place] [address] Sep, Hypertension I10 and Onychom ycosis B35.1 [place] [id number] [address] [place] [id number] 16 Sep, 2015 Skin tags, multiple acquired L91.8 [facility] [address] [id number] [address] [place] [address] Aug, [facility] [address] [id number] [address] [place] [address] Aug, [facility] [address] [id number] [address] [place] [address] Aug, [facility] [address] [id number] [address] [place] [address] Aug, Generalized anxiety disorder F41.1 and Depressive disorder, not elsewhere classified F32.9 [facility] [address] [id number] [address] [place] [address] Jul, Skin lesion L98.9 [facility] [address] [id number] [address] [place] [address] Jun, Generalized anxiety disorder F41.1 and Depressive disorder, not elsewhere classified F32.9 [facility] [address] [id number] [address] [place] [address] Jun, [facility] [address] [id number] [address] [place] [address] Jun, Generalized anxiety disorder F41.1 [facility] [address] [facility] [id number] [address] [place] [address] May, Encounter for immunization Z 23 and Right shoulder pain M25.511 [facility] [address] [id number] [address] [place] [address] Apr, [facility] [address] [facility] [id number] [address] [place] [id number] 14 Apr, 2015 Generalized anxiety disorder 300.02 and Depressive disorder, not elsewhere classified 311 [facility] [address] [id number] [address] [place] [id number] Mar, Dental examination V72.2 [facility] [address] [facility] [id number] [address] [place] [address] Mar, Generalized anxiety disorder 300.02 and Depressive disorder, not elsewhere classified [address] 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 [address] [facility] [id number] [address] [place] [address] Feb, Generalized anxiety disorder 300.02 and Depressive disorder, not elsewhere classified 311 [facility] [address] [id number] [address] [place] [address] [id number] Feb, Dental examination V72.2 [facility] [address] [facility] [id number] [address] [place] [address] Jan, Generalized anxiety disorder 300.02 and Depressive disorder, not elsewhere classified [address] [facility] [address] [facility] [id number] [address] [place] [address] Jan, [facility] [address] [facility] [id number] [address] [place] [address] December, Generalized anxiety disorder 300.02 and Depressive disorder, not elsewhere classified [address] [facility] [address] [facility] [id number] [address] [place] [address] December, Major depressive disorder, r ecurrent, unspecified 296.30 and Panic disorder with agoraphobia 300.21 [facility] [address] [facility] [id number] [address] [place] [address] Nov, [facility] [address] [facility] [id number] [address] [place] [address] Nov, [facility] [address] [facility] [id number] [address] [place] [address] Oct, [facility] [address] [facility] [id number] [address] [place] [phone] Oct, [facility] [address] [id number] [address] [place] [address], [place] [address] Oct, [facility] [address] [id number] [address] [place] [address], [place] [address] Oct, [facility] [address] [id number] [address] [place] [address], [place] [address] Sep, 2014 [facility] [address] [id number] [address] [place] [address], [place] [address] Sep, 2014 [facility] [address] [id number] [address] [place] [address], [place] [address] Sep, 2014 [facility] [address] [id number] [address] [place] [address], [place] [address] Sep, 2014 [facility] [address] [id number] [address] [place] [address], [place] [address] Sep, 2014 [facility] [address] [id number] [address] [place] [address], [place] [address] Sep, 2014 [facility] [address] [id number] [address] [place] [address], [place] [address] Sep, [facility] [address] [id number] [address] [place] [address], [place] [address] Sep, [facility] [address] [id number] [address] [place] [id number] Sep, [facility] [address] [id number] [address] [place] [address] Sep, [facility] [address] [id number] [address] [place] [address], [place] [address] Aug, [facility] [address] [id number] [address] [place] [phone] Aug, [facility] [address] [id number] [address] [place] [id number] Jul, [facility] [address] [id number] [address] [place] [address] Jul, [facility] [address] [id number] [address] [place] [address], [place] [address] Jul, [facility] [address] [id number] [address] [place] [address], [place] [address] Jul, [facility] [address] [id number] [address] [place] [address], [place] [address] Jul, [facility] [address] [id number] [address] [place] [address], [place] [address] Jul, [facility] [address] [id number] [address] [place] [address], [place] [address] Jul, [facility] [address] [id number] [address] [place] [address], [place] [address] Jul, [facility] [address] [id number] [address] [place] [address], [place] [address] Jul, [facility] [address] [id number] [address] [place] [address], [place] [address] Jul, [facility] [address] [id number] [address] [place] [address], [place] [address] Jul, [facility] [address] [id number] [address] [place] [address], [place] [address] Jul, [facility] [address] [id number] [address] [place] [address], [place] [address] Jun, [facility] [address] [id number] [address] [place] [address], [place] [address] Jun, [facility] [address] [id number] [address] [place] [address], [place] [address] May, [facility] [address] [id number] [address] [place] [address], [place] [address] May, [facility] [address] [id number] [address] [place] [address], [place] [address] May, [facility] [address] [id number] [address] [place] [address], [place] [address] May, [facility] [address] [id number] [address] [place] [address], [place] [address] May, [facility] [address] [id number] [address] [place] [address], [place] [address] May, [facility] [address] [id number] [address] [place] [address], [place] [address] May, [facility] [address] [id number] [address] [place] [address], [place] [address] May, [facility] [address] [id number] [address] [place] [address], [place] [address] May, [facility] [address] [id number] [address] [place] [address], [place] [address] May, [facility] [address] [id number] [address] [place] [address], [place] [address] May, [facility] [address] [id number] [address] [place] [address], [place] [address] May, [facility] [address] [id number] [address] [place] [address], [place] [address] 30 Apr, 2013 [facility] [address] [id number] [address] [place] [address], [place] [address] 30 Apr, 2013 [facility] [address] [id number] [address] [place] [address], [place] [address] 29 Apr, 2013 [facility] [address] [id number] [address] [place] [address], [place] [address] 29 Apr, 2013 [facility] [address] [id number] [address] [place] [address], [place] [address] 02 Apr, 2013 [facility] [address] [id number] [address] [place] [address], [place] [address] 02 Apr, 2013 [facility] [address] [id number] [address] [place] [address], [place] [address] Feb, [facility] [address] [id number] [facility] [place] [address] Feb, [facility] [address] [id number] [facility] [place] [address] Feb, [facility] [address] [id number] [address] [place] [address], [place] [address] Feb, [facility] [address] [id number] [address] [place] [address], [place] [address] Feb, [facility] [address] [id number] [address] [place] [address], [place] [address] Feb, [facility] [address] [id number] [address] [place] [address], [place] [address] Jan, [facility] [address] [id number] [address] [place] [address], [place] [address] Jan, [facility] [address] [id number] [address] [place] [address], [place] [address] Jan, [facility] [address] [id number] [address] [place] [address], [place] [address] Jan, [facility] [address] [id number] [address] [place] [address], [place] [address] Jan, [facility] [address] [id number] [address] [place] [address], [place] [address] Jan, [facility] [address] [id number] [address] [place] [address], [place] [address] Jan, [facility] [address] [id number] [address] [place] [address], [place] [address] Jan, [facility] [address] [id number] [address] [place] [address], [place] [address] December, [facility] [address] [id number] [address] [place] [address], [place] [address] December, [facility] [address] [id number] [address] [place] [address], [place] [address] December, [facility] [address] [id number] [address] [place] [address], [place] [address] December, [facility] [address] [id number] [address] [place] [address], [place] [address] Nov, [facility] [address] [id number] [address] [place] [address], [place] [address] Nov, [facility] [address] [id number] [address] [place] [address], [place] [address] Nov, [facility] [address] [id number] [address] [place] [address], [place] [address] Nov, [facility] [address] [id number] [address] [place] [address], [place] [address] Nov, [facility] [address] [id number] [address] [place] [address], [place] [address] Nov, [facility] [address] [id number] [address] [place] [address], [place] [address] Nov, [facility] [address] [id number] [address] [place] [address], [place] [address] Nov, [facility] [address] [id number] [address] [place] [address], [place] [address] Oct, [facility] [address] [id number] [address] [place] [address], [place] [address] Oct, [facility] [address] [id number] [address] [place] [address], [place] [address] Sep, [facility] [address] [id number] [address] [place] [address], [place] [address] Sep, [facility] [address] [id number] [address] [place] [address], [place] [id number] Sep, [facility] [address] [id number] [address] [place] [address], [place] [address] Sep, [facility] [address] [id number] [address] [place] [address], [place] [address] Sep, [facility] [address] [id number] [address] [place] [address], [place] [address] Sep, [facility] [address] [id number] [address] [place] [address], [place] [address] Aug, [facility] [address] [id number] [address] [place] [address], [place] [address] Aug, [facility] [address] [id number] [address] [place] [address], [place] [address] Aug, [facility] [address] [id number] [address] [place] [address], [place] [address] Aug, [facility] [address] [id number] [address] [place] [address], [place] [address] Jul, [facility] [address] [id number] [address] [place] [address], [place] [address] Jul, [facility] [address] [id number] [address] [place] [address], [place] [address] Jul, [facility] [address] [id number] [address] [place] [address], [place] [address] Jul, [facility] [address] [id number] [address] [place] [address], [place] [address] Jun, [facility] [address] [id number] [address] [place] [address] Jun, [facility] [address] [id number] [address] [place] [address], [place] [address] May, [facility] [address] [id number] [address] [place] [address], [place] [address] May, [facility] [address] [id number] [address] [place] [address], [place] [address] May, [facility] [address] [id number] [address] [place] [address] [place] [address] 11 May, 2013 [facility] [address] [id number] [address] [place] [address], [place] [address] 10 May, 2013 [facility] [address] [id number] [address] [place] [address], [place] [address] 17 Apr, 2013 [facility] [address] [id number] [address] [place] [address], [place] [address] Apr, [facility] [address] [id number] [address] [place] [address], [place] [address] 29 Mar, 2013 [facility] [address] [id number] [address] [place] [address], [place] [address] Mar, [facility] [address] [id number] [address] [place] [address], [place] [address] Mar, [facility] [address] [id number] [address] [place] [address], [place] [address] Mar, [facility] [address] [id number] [address] [place] [address], [place] [address] Feb, [facility] [address] [id number] [address] [place] [address], [place] [address] Feb, [facility] [address] [id number] [address] [place] [address], [place] [address] Feb, [facility] [address] [id number] [address] [place] [address], [place] [address] Feb, [facility] [address] [id number] [address] [place] [address], [place] [address] Feb, [facility] [address] [id number] [address] [place] [address], [place] [address] Jan, [facility] [address] [id number] [address] [place] [address], [place] [address] Jan, [facility] [address] [id number] [address] [place] [address], [place] [address] 14 Jan, 2013 [facility] [address] [id number] [address] [place] [address], [place] [address] Jan, [facility] [address] [id number] [address] [place] [address], [place] [address] Jan, [facility] [address] [id number] [address] [place] [address], [place] [address] December, [facility] [address] [id number] [address] [place] [address], [place] [address] December, [facility] [address] [id number] [address] [place] [address], [place] [address] Nov, [facility] [address] [id number] [address] [place] [address], [place] [address] Nov, [facility] [address] [id number] [address] [place] [address], [place] [address] Oct, [facility] [address] [id number] [address] [place] [address], [place] [address] Oct, [facility] [address] [id number] [address] [place] [address], [place] [address] Oct, [facility] [address] [id number] [address] [place] [address], [place] [address] Sep, [facility] [address] [id number] [address] [place] [address], [place] [address] Aug, [facility] [address] [id number] [address] [place] [address], [place] [address] Aug, [facility] [address] [id number] [address] [place] [address], [place] [address] Aug, [facility] [address] [id number] [address] [place] [address], [place] [address] Aug, [facility] [address] [id number] [address] [place] [address], [place] [address] Jul, [facility] [address] [id number] [address] [place] [address], [place] [address] Jul, [facility] [address] [id number] [address] [place] [address], [place] [address] Jul, [facility] [address] [id number] [address] [place] [address], [place] [address] Jul, [facility] [address] [id number] [address] [place] [address], [place] [address] Jul, [facility] [address] [id number] [address] [place] [address], [place] [address] Jul, [facility] [address] [id number] [address] [place] [address], [place] [address] Jul, [facility] [address] [id number] [address] [place] [address], [place] [address] Jul, [facility] [address] [id number] [address] [place] [address], [place] [address] Jun, [facility] [address] [id number] [address] [place] [id number] Jun, [facility] [address] [id number] [address] [place] [address], [place] [address] Jun, [facility] [address] [id number] [address] [place] [id number] Jun, [facility] [address] [id number] [address] [place] [id number] Jun, [facility] [address] [id number] [address] [place] [id number] Jun, [facility] [address] [id number] [address] [place] [address], [place] [address] May, [facility] [address] [id number] [address] [place] [id number] May, [facility] [address] [id number] [address] [place] [id number] May, [facility] [address] [id number] [address] [place] [address], [place] [id number] 17 May, 2012 [facility] [address] [id number] [address] [place] [address], [place] [address] 26 Apr, 2012 [facility] [address] [id number] [address] [place] [address], [place] [address] 06 Apr, 2012 [facility] [address] [id number] [address] [place] [address], [place] [id number] 08 Mar, 2012 [facility] [address] [id number] [address] [place] [address], [place] [address] 28 Jan, 2012 [facility] [address] [id number] [address] [place] [address], [place] [address] 20 Jan, 2012 [facility] [address] [id number] [address] [place] [address], [place] [address] 16 Jan, 2012 [facility] [address] [id number] [address] [place] [address], [place] [address] 15 Jan, 2012 [facility] [address] [id number] [address] [place] [address], [place] [address] 14 Jan, 2012 [facility] [address] [id number] [address] [place] [address], [place] [address] 14 Jan, 2012 [facility] [address] [id number] [address] [place] [address], [place] [address] 07 Jan, 2012 [facility] [address] [id number] [address] [place] [address], [place] [address] December, [facility] [address] [id number] [address] [place] [address], [place] [address] December, [facility] [address] [id number] [address] [place] [address], [place] [address] December, [facility] [address] [id number] [address] [place] [address], [place] [address] December, [facility] [address] [id number] [address] [place] [address], [place] [address] Nov, [facility] [facility] [address] [id number] [address] [place] [address], [place] [address] Nov, [facility] [address] [id number] [address] [place] [address], [place] [address] 29 Oct, 2011 [facility] [address] [id number] [address] [place] [address], [place] [id number] 28 Oct, 2011 [facility] [address] [id number] [address] [place] [address], [place] [address] 15 Oct, 2011 [facility] [address] [id number] [address] [place] [address], [place] [address] Sep, [facility] [address] [id number] [address] [place] [address], [place] [address] Sep, [facility] [address] [id number] [address] [place] [address], [place] [address] Sep, [facility] [address] [id number] [address] [place] [address], [place] [address] Aug, [facility] [address] [id number] [address] [place] [address], [place] [address] Aug, [facility] [address] [id number] [address] [place] [address], [place] [address] Aug, [facility] [address] [id number] [address] [place] [address], [place] [address] Aug, [facility] [address] [id number] [address] [place] [address], [place] [address] Aug, [facility] [address] [id number] [address] [place] [address], [place] [address] Aug, [facility] [address] [id number] [address] [place] [address], [place] [address] Aug, [facility] [address] [id number] [address] [place] [address], [place] [address] Jul, [facility] [address] [id number] [address] [place] [address], [place] [address] 02 Jul, 2011 [facility] [address] [id number] [address] [place] [address], [place] [address] 30 Jun, 2011 [facility] [address] [id number] [address] [place] [address], [place] [address] 28 Jun, 2011 [facility] [address] [id number] [address] [place] [address], [place] [address] 17 Jun, 2011 [facility] [address] [id number] [address] [place] [address], [place] [address] 15 Jun, 2011 [facility] [address] [id number] [address] [place] [address], [place] [address] 14 Jun, 2011 [facility] [address] [id number] [address] [place] [address], [place] [address] 14 Jun, 2011 [facility] [address] [id number] [address] [place] [address], [place] [address] 07 Jun, 2011 [facility] [address] [id number] [address] [place] [address], [place] [address] Jun, [facility] [address] [id number] [address] [place] [address], [place] [address] 02 Jun, 2011 [facility] [address] [id number] [address] [place] [id number] Jun, [facility] [address] [id number] [address] [place] [address], [place] [address] 31 May, 2011 [facility] [address] [id number] [address] [place] [id number] 31 May, 2011 [facility] [address] [id number] [address] [place] [id number] 25 May, 2011 [facility] [address] [id number] [address] [place] [address], [place] [address] 24 May, 2011 [facility] [address] [id number] [address] [place] [id number] 18 May, 2011 [facility] [address] [id number] [address] [place] [address], [place] [address] 13 May, 2011 [facility] [address] [id number] [address] [place] [address], [place] [address] 13 Feb, 2011 [facility] [address] [id number] [address] [place] [address], [place] [address] December, [facility] [address] [id number] [address] [place] [address], [place] [address] 29 Jul, 2010 [facility] [address] [id number] [address] [place] [address], [place] [address] 29 Jul, 2010 [facility] [address] [id number] [address] [place] [address], [place] [address] 22 Jul, 2010 [facility] [address] [id number] [address] [place] [address], [place] [address] Jul, [facility] [address] [id number] [address] [place] [address], [place] [address] 15 Jun, 2010 [facility] [address] [id number] [address] [place] [address], [place] [address] 31 Jul, 2009 [facility] [address] [id number] [address] [place] [address], [place] [address] 23 Jul, 2009 [facility] [address] [id number] [address] [place] [address], [place] [address] 23 Jul, 2009 [facility] [address] [id number] [address] [place] [address], [place] [id number] 17 Jul, 2009 [facility] [address] [id number] [address] [place] [address], [place] [address] 17 Jul, 2009 [facility] [address] [id number] [address] [place] [address], [place] [address] 10 Jul, 2009 [facility] [address] [id number] [address] [place] [address], [place] [address] 15 Jan, 2009 [facility] [address] [id number] [address] [place] [address], [place] [address] Sep, [facility] [address] [facility] [id number] [address] [place] [address] Sep, IMMUNIZATIONS No Known Immunizations SOCIAL HISTORY Never Assessed REASON FOR VISIT Diverticulitis- took cipro and flagyl earlier this month but symptoms are return ing [employer] PLAN OF CARE Activity Details Follow Up if not improving with PCP or reg follow up Reason: VITAL SIGNS Height 66 in 2018-11-14 Weight 179.0 lbs 2018-11-14 Temperature 98.0 degrees Fahrenheit 2018-11-14 Heart Rate 64 bpm 2018-11-14 Respiratory Rate 20 2018-11-14 BMI 28.89 kg/m2 2018-11-14 Blood pressure systolic 130 mmHg 2018-11-14 Blood pressure diastolic 82 mmHg 2018-11-14 MEDICATIONS Medication Instructions Dosage Frequency Start Date End Date Duration S tatus Clorazepate Dipotassium 7.5 MG Orally 4 times a day 1 tablet as needed 6h 30 days Active Inderal LA 80 MG Orally Once a day. Take along with the 1 20 mg Capsule 1 capsule December, 90 days Active Omeprazole 20 mg Orally twice a day 1 capsule 12h Mar, 30 day(s) Active Inderal LA 120 MG Orally Once a day. Take along with the 80mg Ca psule 1 capsule 90 Active Hyoscyamine Sulfate 0.125 mg Sublingual 2 times a day as nee ded 1 tablet by Oral route 4 times per day PRN Jul, Ac tive Ondansetron HCl 4 MG Orally every 8 hours, PRN 1 tablet Oct, Active Propranolol HCl 20 mg Orally Once a day prn tachycardia 1 tablet Jan, 90 Active Melatonin 5 MG Orally Once a day 1 tablet at bedtime as needed with f ood 24h 30 day(s) Active Ciprofloxacin HCl 500 mg Orally every 12 hrs 1 tablet 12h 2018 10 day(s) Active Percocet 5-325 MG Orally every 6-8 hrs 1 tablet as needed Aug Active Sucralfate 1 GM Orally 4 times a day 1 tablet on an empty stomach 6 h Jul, 30 day(s) Active Metronidazole 500 mg Orally 3 times a day 1 tablet 8h Oct, 10 days Active Hydrochlorothiazide 25 MG Orally Once a day 1 tablet 24h 90 days Active Ondansetron 4 MG Orally every 8 hours PRN 1 tablet Oct, 7 days Active RESULTS No Results PROCEDURES No [...]
--- OUTSIDE RECORDS SUMMARY | 2020-01-27 09:59 | XMS REPORT ---
Author Author Silvia WILKINS Organization [facility] [place] Address [address] [place] [address] Care Team Providers Care Expressive Therapist Name Role Phone LETTY WILKINS Unavailable PROBLEMS Type Condition ICD9-CM Code OGN54-SV Code Onset Dates Condition S tatus SNOMED Code Problem Hypertension I10 Active 0838176 3 Problem Generalized anxiety disorder F41.1 A ctive 468666356 Problem History of colon polyps Z86.010 Active 131188021 Problem History of diverticulitis Z87.19 Acti ve [id number] Problem Family history of diabetes mellitus Z83.3 Active 832201374 Problem Excessive and frequent menstruation with irregular cycle N92.1 Active 701740943 Problem Hot flashes N95.1 Active 50147205 8 Problem Gastroesophageal reflux disease with esophagitis K 21.0 Active 888858280 Problem History of ovarian cyst Z87.42 Active 07696531 Problem Diverticulitis K57.92 Active 66114 6006 Problem Dense breast tissue R92.2 Active 830975036 Problem Perimenopausal N95.1 Active 22660 5061919359 Problem Mitral valve prolapse I34.1 Active 993977980 Problem Abnormal uterine bleeding (AUB) N93.9 Active [id number] Problem Tachycardia R00.0 Active 1538846 ALLERGIES No Information ENCOUNTERS Encounter Location Date Diagnosis [facility] [place] [address] [facility] [place] [id number] [address] [place] [phone] Jan, [facility] [place] [address] [facility] [place] [id number] [address] [place] [address] December, [facility] [place] [address] [facility] [place] [id number] [address] [place] [phone] Nov, Generalized anxiety disorder F41.1 and Bereavement Z63.4 [place] [address] [facility] [place] [id number] [address] [place] [id number] 16 Nov, 2019 Generalized anxiety disorder F41.1 and Bereavement Z63.4 [facility] [place] [address] [id number] [address] [place] [phone] 13 Nov, 2019 [facility] [address] [id number] [address] [place] [id number] 08 Nov, 2019 [facility] [place] [address] [id number] [address] [place] [phone] 06 Nov, 2019 Generalized anxiety disorder F41.1 [facility] [place] [address] [id number] [address] [place] [phone] 30 Oct, 2019 Generalized anxiety disorder F41.1 and Bereavement Z63.4 [facility] [place] [address] [id number] [address] [place] [id number] 16 Oct, 2019 Acute non-recurrent sinusiti s, unspecified location J01.90 [facility] [address] [id number] [address] [place] [id number] 05 Oct, 2019 Acute non-recurrent frontal sinusitis J01.10 [facility] [place] [address] [id number] [address] [place] [id number] 27 Sep, 2019 Generalized anxiety disorder F41.1 and Bereavement Z63.4 [facility] [place] [address] [id number] [address] [place] [id number] 17 Sep, 2019 [facility] [place] [address] [id number] [address] [place] [phone] Sep, Generalized anxiety disorder F41.1 and Bereavement Z63.4 [facility] [place] [address] [id number] [address] [place] [phone] 15 Aug, 2019 Generalized anxiety disorder F41.1 and Bereavement Z63.4 [facility] [place] [address] [id number] [address] [place] [phone] 13 Aug, 2019 Generalized anxiety disorder F41.1 [facility] [place] [address] [id number] [address] [place] [id number] Aug, Viral upper respiratory trac t infection J06.9 [facility] [place] [address] [facility] [place] [id number] [address] [place] [phone] Jul, Generalized anxiety disorder F41.1 and Bereavement Z63.4 [facility] [place] [address] [facility] [id number] [address] [place] [address] Jul, Acute non-recurrent frontal sinusitis J01.10 [facility] [address] [facility] [place] [id number] [address] [place] [phone] Jul, [facility] [address] [facility] [id number] [address] [place] [address] Jul, Sore throat J02.9 and Uvulit is K12.2 [facility] [place] [address] [facility] [id number] [address] [place] [address] Jul, Generalized anxiety disorder F41.1 [facility] [address] [facility] [id number] [address] [place] [address] Jul, Caries K02.9 [facility] [place] [address] [facility] [place] [id number] [address] [place] [phone] Jun, Generalized anxiety disorder F41.1 [facility] [place] [address] [facility] [place] [id number] [address] [place] [address] Jun, Generalized anxiety disorder F41.1 and Bereavement Z63.4 [facility] [place] [address] [facility] [place] [id number] [address] [place] [address] May, Generalized anxiety disorder F41.1 [facility] [address] [facility] [place] [place] [id number] [address] [place] [phone] May, Dysuria R30.0 [facility] [place] [address] [facility] [place] [id number] [address] [place] [phone] 09 May, 2019 Generalized anxiety disorder F41.1 and Bereavement Z63.4 [facility] [place] [address] [facility] [place] [id number] [address] [place] [id number] May, [facility] [place] [address] [facility] [place] [id number] [address] [place] [address] Apr, Generalized anxiety disorder F41.1 and Bereavement Z63.4 [facility] [place] [address] [facility] [place] [id number] [address] [place] [address] Apr, Generalized anxiety disorder F41.1 [facility] [address] [facility] [id number] [address] [address] Mar, Caries K02.9 ; Dental examin ation Z01.20 ; Periodontitis K05.30 and Oral health maintenance status requiring routine preventive dental care K08.9 [facility] [place] [address] [facility] [place] [id number] [address] [place] [id number] Mar, Generalized anxiety disorder F41.1 [facility] [place] [address] [facility] [place] [id number] [address] [place] [address] Mar, Gastrointestinal hemorrhage associated with gastroduodenitis K29.91 [facility] [place] [address] [facility] [place] [id number] [address] [place] [address] Mar, Generalized anxiety disorder F41.1 and Bereavement Z63.4 [facility] [place] [address] [facility] [place] [id number] [address] [place] [phone] Mar, [facility] [place] [address] [facility] [place] [id number] [address] [place] [address] Mar, [facility] [place] [address] [facility] [place] [place] [id number] [address] [place] [id number] Mar, [facility] [place] [address] [facility] [place] [id number] [address] [place] [address] Mar, Tachycardia R00.0 and Essent ial hypertension I10 [facility] [place] [address] [facility] [place] [id number] [address] [place] [phone] Feb, Generalized anxiety disorder F41.1 [facility] [place] [address] [id number] [address] [place] [address] Feb, Generalized anxiety disorder F41.1 and Bereavement Z63.4 [facility] [place] [address] [id number] [address] [place] [id number] Feb, Generalized anxiety disorder F41.1 [facility] [place] [address] [facility] [place] [id number] [address] [place] [address] Feb, Generalized anxiety disorder F41.1 and Bereavement Z63.4 [facility] [place] [address] [id number] [address] [place] [phone] Jan, [facility] [place] [address] [facility] [place] [id number] [address] [place] [address] Jan, Breast cancer screening by trenton crenshaw Z12.31 [facility] [place] [address] [facility] [place] [id number] [address] [place] [address] Jan, Generalized anxiety disorder F41.1 and Bereavement Z63.4 [facility] [place] [address] [facility] [place] [id number] [address] [place] [id number] Jan, [facility] [place] [address] [facility] [place] [place] [id number] [address] [place] [address] December, Generalized anxiety disorder F41.1 and Bereavement Z63.4 [facility] [place] [address] [facility] [place] [id number] [address] [place] [address] December, Diverticulitis K57.92 ; Dysu nick R30.0 ; Other constipation K59.09 and Lower abdominal pain R10.30 [facility] [address] [facility] [place] [id number] [address] [place] [address] Nov, Diverticulitis K57.92 [facility] [place] [address] [facility] [place] [id number] [address] [place] [address] Nov, Generalized anxiety disorder F41.1 and Bereavement Z63.4 [facility] [place] [address] [facility] [place] [id number] [address] [place] [id number] Nov, Generalized anxiety disorder F41.1 and Bereavement Z63.4 [facility] [place] [address] [facility] [place] [id number] [address] [place] [address] Nov, Diverticulitis K57.92 [facility] [address] [facility] [place] [place] [id number] [address] [place] [address] Oct, Diverticulitis K57.92 [facility] [place] [address] [facility] [place] [place] [id number] [address] [place] [address] Oct, Diverticulitis K57.92 [facility] [place] [address] [place] [id number] [address] [place] [id number] Oct, Generalized anxiety disorder F41.1 [facility] [address] [facility] [place] [place] [id number] [address] [place] [address] Oct, Right lower quadrant abdomin al pain R10.31 and Diverticulitis K57.92 [facility] [place] [address] [place] [id number] [address] [place] [address] Sep, Generalized anxiety disorder F41.1 and Bereavement Z63.4 [place] [address] [id number] [place] [address] Aug, [facility] [place] [address] [facility] [place] [id number] [address] [place] [address] Aug, Generalized anxiety disorder F41.1 and Bereavement Z63.4 [facility] [id number] [address] [address] Aug, Caries K02.9 [facility] [place] [address] [facility] [place] [id number] [address] [place] [id number] Jul, Generalized anxiety disorder F41.1 and Bereavement Z63.4 [place] [address] [facility] [place] [id number] [address] [place] [address] Jul, Other acute gastritis withou t hemorrhage K29.00 ; Generalized anxiety disorder F41.1 ; Tachycardia R00.0 and Essential hypertension I10 [facility] [place] [address] [facility] [place] [id number] [address] [place] [id number] 05 Jul, 2018 Generalized anxiety disorder F41.1 and Bereavement Z63.4 [facility] [place] [address] [facility] [place] [id number] [address] [place] [address] Jun, Generalized anxiety disorder F41.1 and Bereavement Z63.4 [facility] [place] [address] [facility] [id number] [address] [place] [phone] Jun, Generalized anxiety disorder F41.1 and Bereavement Z63.4 [facility] [address] [id number] [place] [address] Jun, Dental examination Z01.20 [facility] [place] [address] [facility] [place] [id number] [address] [place] [address] May, Generalized anxiety disorder F41.1 and Bereavement Z63.4 [facility] [place] [address] [facility] [place] [id number] [address] [place] [address] May, Encounter for immunization Z 23 [facility] [place] [address] [facility] [place] [id number] [address] [place] [address] 08 May, 2018 Generalized anxiety disorder F41.1 and Bereavement Z63.4 [facility] [place] [address] [facility] [place] [id number] [address] [place] [address] May, [facility] [place] [address] [facility] [place] [place] [id number] [address] [place] [id number] 24 Apr, 2018 Generalized anxiety disorder F41.1 and Bereavement Z63.4 [facility] [place] [address] [facility] [place] [id number] [address] [place] [phone] 17 Apr, 2018 [facility] [place] [address] [facility] [place] [id number] [address] [place] [id number] 13 Apr, 2018 Diverticulitis K57.92 [facility] [place] [address] [facility] [place] [id number] [address] [place] [id number] 10 Apr, 2018 Generalized anxiety disorder F41.1 and Bereavement Z63.4 [facility] [address] [id number] [address] [place] [phone] Mar, [facility] [address] [id number] [address] [place] [address] Mar, Diverticulitis K57.92 [facility] [place] [address] [id number] [address] [place] [address] Mar, Generalized anxiety disorder F41.1 and Bereavement Z63.4 [facility] [place] [address] [id number] [address] [place] [address] Mar, Hypertension I10 [facility] [place] [address] [id number] [address] [place] [id number] Mar, Generalized anxiety disorder F41.1 and Bereavement Z63.4 [facility] [place] [address] [id number] [address] [place] [address] Feb, Generalized anxiety disorder F41.1 and Bereavement Z63.4 [facility] [place] [address] [id number] [address] [place] [phone] Feb, [facility] [place] [address] [facility] [place] [id number] [address] [place] [id number] Feb, Generalized anxiety disorder F41.1 and Bereavement Z63.4 [facility] [place] [address] [facility] [place] [id number] [address] [place] [phone] Feb, Generalized anxiety disorder F41.1 and Bereavement Z63.4 [facility] [place] [address] [id number] [address] [place] [address] Jan, Hypertension I10 and Acute n on-recurrent maxillary sinusitis J01.00 [facility] [place] [address] [id number] [address] [place] [phone] December, [facility] [place] [address] [id number] [address] [place] [address] December, Hypertension I10 [facility] [place] [address] [id number] [address] [place] [address] December, Generalized anxiety disorder F41.1 [facility] [address] [id number] [address] [address] 16 Oct, 2017 Encounter for dental examina tion Z01.20 [facility] [address] [id number] [address] [place] [address] 06 Oct, 2017 Encounter for dental examina tion Z01.20 [facility] [address] [id number] [address] [place] [address] 02 Oct, 2017 Dental examination Z01.20 [facility] [place] [address] [id number] [address] [place] [address] Oct, Generalized anxiety disorder F41.1 [facility] [address] [id number] [address] [place] [address] Aug, Dental examination Z01.20 [facility] [place] [address] [id number] [address] [place] [id number] Aug, Generalized anxiety disorder F41.1 [facility] [place] [address] [id number] [address] [place] [address] Aug, [facility] [address] [id number] [address] [place] [phone] Aug, Encounter for dental examina tion Z01.20 [facility] [place] [address] [id number] [address] [place] [address] Aug, Subacute maxillary sinusitis J01.00 [facility] [address] [id number] [address] [place] [address] Jul, Dental examination Z01.20 [facility] [place] [address] [id number] [address] [place] [phone] Jul, Generalized anxiety disorder F41.1 [facility] [place] [address] [id number] [address] [place] [address] Jul, Diverticulitis K57.92 [facility] [place] [address] [id number] [address] [place] [address] Jun, Encounter for immunization Z 23 [facility] [address] [id number] [address] [place] [phone] 22 Jun, 2017 Dental examination Z01.20 [facility] [place] [address] [id number] [address] [place] [phone] 14 Jun, 2017 Generalized anxiety disorder F41.1 [facility] [address] [id number] [address] [place] [phone] 07 Jun, 2017 Dental examination Z01.20 [facility] [place], [facility] [address] [id number] [address] [place] [phone] May, [facility] [address] [id number] [address] [place] [phone] May, Dental examination Z01.20 [facility] [address] [id number] [address] [place] [phone] May, Dental examination Z01.20 [facility] [address] [id number] [address] [place] [phone] May, Dental examination Z01.20 [facility] [place], [facility] [address] [id number] [address] [place] [phone] May, [facility] [place] [address] [id number] [address] [place] [phone] May, Generalized anxiety disorder F41.1 [facility] [place] [address] [id number] [address] [place] [phone] May, Localized edema R60.0 ; Yeas t vaginitis B37.3 and Gastroesophageal reflux disease with esophagitis K21.0 [facility] [address] [id number] [address] [place] [phone] Apr, Dental examination Z01.20 [facility] [address] [id number] [address] [place] [address] Apr, Dental examination Z01.20 [facility] [address] [id number] [place] [address] 05 Apr, 2017 Dental examination Z01.20 [facility] [place] [address] [id number] [address] [place] [address] Mar, Dyspepsia R10.13 [facility] [place] [address] [id number] [address] [place] [address] Mar, Generalized anxiety disorder F41.1 [facility] [address] [id number] [address] [address] Mar, Encounter for dental examina tion Z01.20 [facility] [address] [id number] [address] [place] [address] [id number] Mar, [facility] [address] [id number] [address] [place] [address] [id number] Mar, Dental examination Z01.20 [facility] [place] [address] [id number] [address] [place] [address] Feb, Hypertension I10 and Tachyca rdia R00.0 [facility] [address] [id number] [address] [address] Feb, [facility] [place] [address] [id number] [address] [place] [address] Feb, Generalized anxiety disorder F41.1 [facility] [address] [id number] [address] [place] [address] [id number] Feb, Dental examination Z01.20 [facility] [place] [address] [id number] [address] [place] [address] Jan, Generalized anxiety disorder F41.1 [facility] [place] [address] [id number] [address] [place] [address] December, Generalized anxiety disorder F41.1 [facility] [address] [id number] [address] [place] [address] [id number] December, Encounter for dental examina tion Z01.20 [facility] [place] [address] [id number] [address] [place] [address] Nov, [facility] [place] [address] [id number] [address] [place] [address] Nov, [facility] [place] [address] [id number] [address] [place] [address] Nov, Generalized anxiety disorder F41.1 [facility] [place] [address] [id number] [address] [place] [address] Oct, [facility] [address] [id number] [address] [place] [address] [id number] Oct, Dental examination Z01.20 [facility] [place] [address] [id number] [address] [place] [address] Oct, Vaginal dryness N89.8 [facility] [place] [address] [id number] [address] [place] [address] Oct, Pseudoseizures F44.5 [facility] [place] [address] [facility] [id number] [address] [place] [address] Oct, Generalized anxiety disorder F41.1 [facility] [place] [address] [id number] [address] [place] [address] Sep, Abnormal uterine bleeding (A UB) N93.9 ; Vaginal dryness N89.8 and Screening breast examination Z12.39 [facility] [place] [address] [id number] [address] [place] [address] Sep, Dental examination Z01.20 [facility] [place] [address] [id number] [address] [place] [address] Sep, Generalized anxiety disorder F41.1 [facility] [place] [address] [id number] [address] [place] [address] Sep, Unspecified ovarian cyst, ri ght side N83.201 ; Unspecified ovarian cyst, left side N83.202 ; Yeast infection of the vagina B37.3 ; Mitral valve prolapse I34.1 and Hypertension I10 [facility] [place] [address] [facility] [place] [id number] [address] [place] [address] Aug, Generalized anxiety disorder F41.1 [facility] [place] [address] [facility] [id number] [address] [place] [address] Jul, [facility] [place] [address] [facility] [id number] [address] [place] [address] Jul, Generalized anxiety disorder F41.1 [facility] [place] [address] [facility] [id number] [address] [place] [address] Jun, Generalized anxiety disorder F41.1 [facility] [place] [address] [facility] [id number] [address] [place] [id number] 28 May, 2016 Encounter for immunization Z 23 [facility] [place] [address] [facility] [id number] [address] [place] [address] 17 May, 2016 Generalized anxiety disorder F41.1 and Depressive disorder, not elsewhere classified F32.9 [facility] [place] [address] [facility] [id number] [address] [place] [address] 28 Apr, 2016 Hypertension I10 [facility] [place] [address] [facility] [id number] [address] [place] [id number] 22 Apr, 2016 Cervicalgia M54.2 [facility] [address] [facility] [id number] [address] [place] [id number] 12 Apr, 2016 Cervicalgia M54.2 [facility] [place] [address] [facility] [id number] [address] [place] [id number] 09 Mar, 2016 Generalized anxiety disorder F41.1 and Depressive disorder, not elsewhere classified F32.9 [facility] [address] [id number] [address] [place] [address] [id number] 14 Feb, 2016 Visit for dental examination Z01.20 [facility] [place] [address] [facility] [place] [id number] [address] [place] [id number] 11 Feb, 2016 Pseudoseizures F44.5 ; Migra ine without status migrainosus, not intractable, unspecified migraine type G43.909 and Essential hypertension I10 [facility] [address] [id number] [address] [place] [address] [id number] 06 Feb, 2016 Dental examination Z01.20 [facility] [place] [address] [facility] [place] [id number] [address] [place] [phone] 05 Feb, 2016 Generalized anxiety disorder F41.1 and Depressive disorder, not elsewhere classified F32.9 [facility] [place] [address] [facility] [place] [id number] [address] [place] [phone] 27 Jan, 2016 Tachycardia R00.0 [place] [address] [facility] [id number] [address] [place] [phone] December, Eustachian tube dysfunction, bilateral H69.83 [facility] [place] [address] [facility] [place] [id number] [address] [place] [id number] December, Generalized anxiety disorder F41.1 and Depressive disorder, not elsewhere classified F32.9 [facility] [place] [address] [place] [id number] [address] [place] [phone] Nov, [place] [address] [place] [id number] [address] [place] [address] Nov, [facility] [place] [address] [place] [id number] [address] [place] [phone] 20 Nov, 2015 Hypertension I10 ; Onychomyc [...] and Complex cyst of left ovary N83.29 [place] [address] [place] [id number] [address] [place] [address] 14 Nov, 2015 Sinusitis J32.9 [place] [address] [place] [id number] [address] [place] [address] Oct, Complex cyst of left ovary N 83.29 [place] [address] [place] [id number] [address] [place] [address] Oct, Onychomycosis B35.1 [facility] [address] [place] [id number] [address] [place] [address] [id number] 17 Oct, 2015 Dental examination Z01.20 [place] [address] [address] 09 Oct, 2015 Well woman exam Z01.419 [...] R92.2 and History of colon polyps Z86.010 [place] [address] [address] [place] [id number] [address] [place] [phone] Oct, Generalized anxiety disorder F41.1 and Depressive disorder, not elsewhere classified F32.9 [place] [address] [place] [id number] [address] [place] [address] Sep, Hypertension I10 and Onychom ycosis B35.1 [place] [address] [address] Sep, Skin tags, multiple acquired L91.8 [place] [address] [address] [place] [id number] [address] [place] [address] Aug, [place] [address] [place] [address] Aug, [facility] [place] [address] [id number] [address] [place] [address] Aug, [facility] [place] [address] [id number] [address] [place] [address] Aug, Generalized anxiety disorder F41.1 and Depressive disorder, not elsewhere classified F32.9 [facility] [place] [address] [id number] [address] [place] [phone] Jul, Skin lesion L98.9 [facility] [place] [address] [id number] [address] [place] [address] Jun, Generalized anxiety disorder F41.1 and Depressive disorder, not elsewhere classified F32.9 [facility] [place] [address] [id number] [address] [place] [phone] Jun, [facility] [place] [address] [facility] [place] [id number] [address] [place] [address] Jun, Generalized anxiety disorder F41.1 [facility] [place] [address] [id number] [address] [place] [address] May, Encounter for immunization Z 23 and Right shoulder pain M25.511 [facility] [place] [address] [id number] [address] [place] [phone] Apr, [facility] [place] [address] [id number] [address] [place] [id number] 14 Apr, 2015 Generalized anxiety disorder 300.02 and Depressive disorder, not elsewhere classified 311 [facility] [address] [id number] [address] [place] [address] [id number] Mar, Dental examination V72.2 [facility] [place] [address] [id number] [address] [place] [address] Mar, Generalized anxiety disorder 300.02 and Depressive disorder, not elsewhere classified 311 [facility] [place] [address] [id number] [address] [place] [phone] Mar, Depression, major, recurrent , 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.35 and 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 [facility] [place] [address] [id number] [address] [place] [address] Feb, Generalized anxiety disorder 300.02 and Depressive disorder, not elsewhere classified 311 [facility] [address] [id number] [address] [place] [address] [id number] 07 Feb, 2015 Dental examination V72.2 [facility] [place] [address] [id number] [address] [place] [id number] 09 Jan, 2015 Generalized anxiety disorder 300.02 and Depressive disorder, not elsewhere classified 311 [facility] [place] [address] [facility] [id number] [address] [place] [address] Jan, [facility] [place] [address] [facility] [id number] [address] [place] [phone] December, Generalized anxiety disorder 300.02 and Depressive disorder, not elsewhere classified 311 [facility] [place] [address] [facility] [id number] [address] [place] [phone] December, Major depressive disorder, r ecurrent, unspecified 296.30 and Panic disorder with agoraphobia 300.21 [facility] [place] [address] [facility] [id number] [address] [place] [phone] Nov, [facility] [place] [address] [facility] [place] [id number] [address] [place] [phone] Nov, [facility] [place] [address] [facility] [id number] [address] [place] [id number] Oct, [facility] [place] [address] [facility] [id number] [address] [place] [phone] Oct, [facility] [place] [address] [facility] [id number] [address] [place] [phone] Oct, [facility] [place] [address] [facility] [id number] [address] [place] [phone] Oct, [facility] [place] [address] [facility] [id number] [address] [place] [phone] Sep, 2014 [facility] [address] [id number] [address] [place] [address], [place] [address] Sep, 2014 [facility] [address] [id number] [address] [place] [address], [place] [address] Sep, 2014 [facility] [address] [id number] [address] [place] [address], [place] [address] Sep, 2014 [facility] [address] [id number] [address] [place] [address], [place] [address] Sep, 2014 [facility] [address] [id number] [address] [place] [address], [place] [address] Sep, 2014 [facility] [address] [id number] [address] [place] [address], [place] [address] Sep, 2014 [facility] [address] [id number] [address] [place] [address], [place] [address] Sep, 2014 [facility] [address] [id number] [address] [place] [address], [place] [address] Sep, 2014 [facility] [address] [id number] [address] [place] [address], [place] [address] Sep, 2014 [facility] [address] [id number] [address] [place] [address], [place] [address] Aug, [facility] [address] [id number] [address] [place] [address], [place] [address] Aug, [facility] [address] [id number] [address] [place] [address], [place] [address] Jul, [facility] [address] [id number] [address] [place] [address], [place] [address] Jul, [facility] [address] [id number] [address] [place] [address], [place] [address] Jul, [facility] [address] [id number] [address] [place] [address], [place] [address] Jul, [facility] [address] [id number] [address] [place] [address], [place] [address] Jul, [facility] [address] [id number] [address] [place] [address], [place] [address] Jul, [facility] [address] [id number] [address] [place] [address], [place] [address] Jul, [facility] [address] [id number] [address] [place] [address], [place] [address] Jul, [facility] [address] [id number] [address] [place] [address], [place] [address] Jul, [facility] [address] [id number] [address] [place] [address], [place] [address] Jul, [facility] [address] [id number] [address] [place] [address], [place] [address] Jul, [facility] [address] [id number] [address] [place] [address], [place] [address] Jul, [facility] [address] [id number] [address] [place] [address], [place] [address] Jun, [facility] [address] [id number] [address] [place] [address], [place] [address] Jun, [facility] [address] [id number] [address] [place] [address], [place] [address] May, [facility] [address] [id number] [address] [place] [address], [place] [address] May, [facility] [address] [id number] [address] [place] [address], [place] [address] May, [facility] [address] [id number] [address] [place] [address], [place] [address] May, [facility] [address] [id number] [address] [place] [address], [place] [address] May, [facility] [address] [id number] [address] [place] [address], [place] [address] May, [facility] [address] [id number] [address] [place] [address], [place] [address] May, [facility] [address] [id number] [address] [place] [address], [place] [address] May, [facility] [address] [id number] [address] [place] [address], [place] [address] May, [facility] [address] [id number] [address] [place] [address], [place] [address] May, [facility] [address] [id number] [address] [place] [address], [place] [address] May, [facility] [address] [id number] [address] [place] [address], [place] [address] May, [facility] [address] [id number] [address] [place] [address], [place] [address] 30 Apr, 2014 [facility] [address] [id number] [address] [place] [address], [place] [address] 30 Apr, 2014 [facility] [address] [id number] [address] [place] [address], [place] [address] 29 Apr, 2014 [facility] [address] [id number] [address] [place] [address], [place] [address] 29 Apr, 2014 [facility] [address] [id number] [address] [place] [address], [place] [address] Apr, [facility] [address] [id number] [address] [place] [address], [place] [address] Apr, [facility] [address] [id number] [address] [place] [address], [place] [address] Feb, [facility] [address] [id number] [address] [place] [address], [place] [address] Feb, [facility] [address] [id number] [address] [place] [address], [place] [address] Feb, [facility] [address] [id number] [facility] [place] [address] Feb, [facility] [address] [id number] [address] [place] [address], [place] [address] Feb, [facility] [address] [id number] [facility] [place] [address] Feb, [facility] [address] [id number] [address] [place] [address], [place] [address] Jan, [facility] [address] [id number] [address] [place] [address], [place] [address] Jan, [facility] [address] [id number] [address] [place] [address], [place] [address] Jan, [facility] [address] [id number] [address] [place] [address], [place] [address] Jan, [facility] [address] [id number] [address] [place] [address], [place] [address] Jan, [facility] [address] [id number] [address] [place] [address], [place] [address] Jan, [facility] [address] [id number] [address] [place] [address], [place] [address] Jan, [facility] [address] [id number] [address] [place] [address], [place] [address] Jan, [facility] [address] [id number] [address] [place] [address], [place] [address] December, [facility] [address] [id number] [address] [place] [address], [place] [address] December, [facility] [address] [id number] [address] [place] [address], [place] [address] December, [facility] [address] [id number] [address] [place] [address], [place] [address] December, [facility] [address] [id number] [address] [place] [address], [place] [address] Nov, [facility] [address] [id number] [facility] [place] [address] Nov, [facility] [address] [id number] [address] [place] [address], [place] [address] Nov, [facility] [address] [id number] [facility] [place] [address] Nov, [facility] [address] [id number] [address] [place] [address], [place] [address] Nov, [facility] [address] [id number] [address] [place] [address], [place] [address] Nov, [facility] [address] [id number] [address] [place] [address], [place] [address] Nov, [facility] [address] [id number] [address] [place] [address], [place] [address] Nov, [facility] [address] [id number] [address] [place] [address], [place] [address] Oct, [facility] [address] [id number] [address] [place] [address], [place] [address] Oct, [facility] [address] [id number] [address] [place] [address], [place] [address] Sep, [facility] [address] [id number] [address] [place] [address], [place] [address] Sep, [facility] [address] [id number] [address] [place] [id number] Sep, [facility] [address] [id number] [address] [place] [address], [place] [address] Sep, [facility] [address] [id number] [address] [place] [address], [place] [address] Sep, [facility] [address] [id number] [address] [place], [place] [address], [place] [address] Sep, [facility] [address] [id number] [address] [place] [address], [place] [address] 15 Aug, 2013 [facility] [address] [id number] [address] [place] [address], [place] [address] Aug, [facility] [address] [id number] [address] [place] [address], [place] [address] Aug, [facility] [address] [id number] [address] [place] [address], [place] [address] Aug, [facility] [address] [id number] [address] [place] [address], [place] [address] Jul, [facility] [address] [id number] [address] [place] [address], [place] [address] Jul, [facility] [address] [id number] [address] [place] [address], [place] [address] Jul, [facility] [address] [id number] [address] [place] [address], [place] [address] Jul, [facility] [address] [id number] [address] [place] [address], [place] [address] Jun, [facility] [address] [id number] [address] [place] [address], [place] [address] Jun, [facility] [address] [id number] [address] [place] [address], [place] [address] May, [facility] [address] [id number] [address] [place] [address], [place] [address] 24 May, 2013 [facility] [address] [id number] [address] [place] [address], [place] [address] May, [facility] [address] [id number] [address] [place] [address], [place] [address] May, [facility] [address] [id number] [address] [place] [address], [place] [address] 10 May, 2013 [facility] [address] [id number] [address] [place] [address], [place] [address] Apr, [facility] [address] [id number] [address] [place] [address], [place] [address] Apr, [facility] [address] [id number] [address] [place] [address], [place] [address] Mar, [facility] [address] [id number] [address] [place] [address], [place] [address] Mar, [facility] [address] [id number] [address] [place] [address], [place] [address] Mar, [facility] [address] [id number] [address] [place] [address], [place] [address] Mar, [facility] [address] [id number] [address] [place] [address], [place] [address] Feb, [facility] [address] [id number] [address] [place] [address], [place] [address] Feb, [facility] [address] [id number] [address] [place] [address], [place] [address] Feb, [facility] [address] [id number] [address] [place] [address], [place] [address] Feb, [facility] [address] [id number] [address] [place] [address], [place] [address] Feb, [facility] [address] [id number] [address] [place] [address], [place] [address] Jan, [facility] [address] [id number] [address] [place] [address], [place] [address] Jan, [facility] [address] [id number] [address] [place] [address], [place] [address] Jan, [facility] [address] [id number] [address] [place] [address], [place] [address] Jan, [facility] [address] [id number] [address] [place] [address], [place] [address] Jan, [facility] [address] [id number] [address] [place] [address], [place] [address] December, [facility] [address] [id number] [address] [place] [address], [place] [address] December, [facility] [address] [id number] [address] [place] [address], [place] [address] Nov, [facility] [address] [id number] [address] [place] [address], [place] [address] Nov, [facility] [address] [id number] [address] [place] [address], [place] [address] Oct, [facility] [address] [id number] [address] [place] [address], [place] [address] Oct, [facility] [address] [id number] [address] [place] [address], [place] [address] 05 Oct, 2012 [facility] [address] [id number] [address] [place] [address], [place] [address] 14 Sep, 2012 [facility] [address] [id number] [address] [place] [address], [place] [address] Aug, [facility] [address] [id number] [address] [place] [address], [place] [address] Aug, [facility] [address] [id number] [address] [place] [address], [place] [address] Aug, [facility] [address] [id number] [address] [place] [address], [place] [address] Aug, [facility] [address] [id number] [address] [place] [address], [place] [address] Jul, [facility] [address] [id number] [address] [place] [address], [place] [address] Jul, [facility] [address] [id number] [address] [place] [address], [place] [address] Jul, [facility] [address] [id number] [address] [place] [address], [place] [address] Jul, [facility] [address] [id number] [address] [place] [address], [place] [address] Jul, [facility] [address] [id number] [address] [place] [address], [place] [address] Jul, [facility] [address] [id number] [address] [place] [address], [place] [address] Jul, [facility] [address] [id number] [address] [place] [address], [place] [address] Jul, [facility] [address] [id number] [address] [place] [address], [place] [address] Jun, [facility] [address] [id number] [address] [place] [address], [place] [address] Jun, [facility] [address] [id number] [address] [place] [address], [place] [address] Jun, [facility] [address] [id number] [address] [place] [address], [place] [address] Jun, [facility] [address] [id number] [address] [place] [address], [place] [address] Jun, [facility] [address] [id number] [address] [place] [address], [place] [address] Jun, [facility] [address] [id number] [address] [place] [address], [place] [address] May, [facility] [address] [id number] [address] [place] [address], [place] [address] May, [facility] [address] [id number] [address] [place] [address], [place] [address] May, [facility] [address] [id number] [address] [place] [address], [place] [address] May, [facility] [address] [id number] [address] [place] [address], [place] [address] Apr, [facility] [address] [id number] [address] [place] [address], [place] [address] Apr, [facility] [address] [id number] [address] [place] [address], [place] [address] 08 Mar, 2012 [facility] [address] [id number] [address] [place] [address], [place] [address] 28 Jan, 2012 [facility] [address] [id number] [address] [place] [address], [place] [address] 20 Jan, 2012 [facility] [address] [id number] [address] [place] [address], [place] [address] 16 Jan, 2012 [facility] [address] [id number] [address] [place] [address], [place] [address] 15 Jan, 2012 [facility] [address] [id number] [address] [place] [address], [place] [address] 14 Jan, 2012 [facility] [address] [id number] [address] [place] [address], [place] [address] 14 Jan, 2012 [facility] [address] [id number] [address] [place] [address], [place] [address] 07 Jan, 2012 [facility] [address] [id number] [address] [place] [address], [place] [address] December, [facility] [address] [id number] [address] [place] [address], [place] [address] December, [facility] [address] [id number] [address] [place] [address], [place] [address] December, [facility] [address] [id number] [address] [place] [address], [place] [address] December, [facility] [address] [id number] [address] [place] [address], [place] [address] Nov, [facility] [address] [id number] [address] [place] [address], [place] [address] Nov, [facility] [address] [id number] [address] [place] [address], [place] [address] Oct, [facility] [address] [id number] [address] [place] [address], [place] [address] 28 Oct, 2011 [facility] [address] [id number] [address] [place] [address], [place] [address] Oct, [facility] [address] [id number] [address] [place] [address], [place] [address] Sep, [facility] [address] [id number] [address] [place] [address], [place] [address] Sep, [facility] [address] [id number] [address] [place] [address], [place] [address] Sep, [facility] [address] [id number] [address] [place] [address], [place] [address] Aug, [facility] [address] [id number] [address] [place] [address], [place] [address] Aug, [facility] [address] [id number] [address] [place] [address], [place] [address] Aug, [facility] [address] [id number] [address] [place] [address], [place] [address] Aug, [facility] [address] [id number] [address] [place] [address], [place] [address] Aug, [facility] [address] [id number] [address] [place] [address], [place] [address] Aug, [facility] [address] [id number] [address] [place] [address], [place] [address] Aug, [facility] [address] [id number] [address] [place] [address], [place] [address] Jul, [facility] [address] [id number] [address] [place] [address], [place] [address] Jul, [facility] [address] [id number] [address] [place] [address], [place] [address] Jun, [facility] [address] [id number] [address] [place] [address], [place] [address] Jun, [facility] [address] [id number] [address] [place] [address], [place] [address] 17 Jun, 2011 [facility] [address] [id number] [address] [place] [address], [place] [address] 15 Jun, 2011 [facility] [address] [id number] [address] [place] [address], [place] [address] 14 Jun, 2011 [facility] [address] [id number] [address] [place] [address], [place] [address] 14 Jun, 2011 [facility] [address] [id number] [address] [place] [address], [place] [address] Jun, [facility] [address] [id number] [address] [place] [address], [place] [address] Jun, [facility] [address] [id number] [address] [place] [address], [place] [address] Jun, [facility] [address] [id number] [address] [place] [address], [place] [address] Jun, [facility] [address] [id number] [address] [place] [address], [place] [address] May, [facility] [address] [id number] [address] [place] [address], [place] [address] May, [facility] [address] [id number] [address] [place] [address], [place] [address] May, [facility] [address] [id number] [address] [place] [address] 24 May, 2011 [facility] [address] [id number] [address] [place] [address], [place] [address] 18 May, 2011 [facility] [address] [id number] [address] [place] [address], [place] [address] May, [facility] [address] [id number] [address] [place] [address] Feb, [facility] [address] [id number] [address] [place] [address] December, [facility] [place] [address] [id number] [address] [place] [address] Jul, [facility] [place] [address] [id number] [address] [place] [address] Jul, [facility] [place] [address] [id number] [address] [place] [address] Jul, [facility] [place] [address] [id number] [address] [place] [address] Jul, [facility] [place] [address] [id number] [address] [place] [address] Jun, [facility] [place] [address] [id number] [address] [place] [address] Jul, [facility] [place] [address] [id number] [address] [place] [id number] Jul, [facility] [place] [address] [id number] [address] [place] [address] Jul, [facility] [place] [address] [id number] [address] [place] [address] Jul, [facility] [place] [address] [id number] [address] [place] [address] Jul, [facility] [place] [address] [id number] [address] [place] [address] Jul, [facility] [place] [address] [id number] [address] [place] [address] Jan, [facility] [place] [address] [id number] [address] [place] [address] 16 Sep, 2008 [facility] [place] [address] [id number] [address] [place] [address] 11 Sep, 2008 IMMUNIZATIONS No Known Immunizations [...]
--- OUTSIDE RECORDS SUMMARY | 2020-01-27 09:59 | XMS REPORT ---
Author Author Silvia Knight [facility] Address [address] [place] [address] Care Team Providers Care [facility] Mechanic Name Role Phone Antonia RENY Unavailable PROBLEMS Type Condition ICD9-CM Code UZU04-EM Code Onset Dates Condition S tatus SNOMED Code Problem Hypertension I10 Active 9680533 3 Problem Generalized anxiety disorder F41.1 A ctive 422030963 Problem History of colon polyps Z86.010 Active 424968440 Problem History of diverticulitis Z87.19 Acti ve 300626239331311 Problem Family history of diabetes mellitus Z83.3 Active 078516982 Problem Excessive and frequent menstruation with irregular cycle N92.1 Active 100226749 Problem Hot flashes N95.1 Active 41405873 8 Problem Gastroesophageal reflux disease with esophagitis K 21.0 Active 553337018 Problem History of ovarian cyst Z87.42 Active 47141401 Problem Diverticulitis K57.92 Active 17011 6006 Problem Dense breast tissue R92.2 Active 302360763 Problem Perimenopausal N95.1 Active 67783 7103222131 Problem Mitral valve prolapse I34.1 Active 550604289 Problem Abnormal uterine bleeding (AUB) N93.9 Active 04711104135246 Problem Tachycardia R00.0 Active 4544135 ALLERGIES No Information ENCOUNTERS Encounter Location Date Diagnosis [facility] [address] [facility] [id number] [address] [place] [phone] Jan, [facility] [address] [facility] [id number] [address] [place] [phone] December, [facility] [address] [facility] [id number] [address] [place] [phone] Nov, Generalized anxiety disorder F41.1 and Bereavement Z63.4 [place] [id number] [id number] [address] [place] [id number] 16 Nov, 2019 Generalized anxiety disorder F41.1 and Bereavement Z63.4 [facility] [address] [id number] [address] [place] [id number] 13 Nov, 2019 [facility] [address] [id number] [address] [place] [id number] 08 Nov, 2019 [facility] [address] [id number] [address] [place] [phone] 06 Nov, 2019 Generalized anxiety disorder F41.1 [facility] [address] [id number] [address] [place] [phone] 30 Oct, 2019 Generalized anxiety disorder F41.1 and Bereavement Z63.4 [facility] [address] [id number] [address] [place] [phone] 16 Oct, 2019 Acute non-recurrent sinusiti s, unspecified location J01.90 [facility] [address] [id number] [address] [place] [id number] 05 Oct, 2019 Acute non-recurrent frontal sinusitis J01.10 [facility] [address] [id number] [address] [place] [id number] 27 Sep, 2019 Generalized anxiety disorder F41.1 and Bereavement Z63.4 [facility] [address] [id number] [address] [place] [id number] 17 Sep, 2019 [facility] [address] [id number] [address] [place] [id number] 11 Sep, 2019 Generalized anxiety disorder F41.1 and Bereavement Z63.4 [facility] [address] [id number] [address] [place] [phone] 15 Aug, 2019 Generalized anxiety disorder F41.1 and Bereavement Z63.4 [facility] [address] [id number] [address] [place] [phone] 13 Aug, 2019 Generalized anxiety disorder F41.1 [facility] [address] [id number] [address] [place] [phone] Aug, Viral upper respiratory trac t infection J06.9 [facility] [address] [facility] [id number] [address] [place] [id number] Jul, Generalized anxiety disorder F41.1 and Bereavement Z63.4 [facility] [address] [facility] [id number] [address] [place] [phone] Jul, Acute non-recurrent frontal sinusitis J01.10 [facility] [address] [facility] [id number] [address] [place] [phone] Jul, [facility] [address] [facility] [id number] [address] [place] [id number] Jul, Sore throat J02.9 and Uvulit is K12.2 [facility] [address] [facility] [id number] [address] [place] [id number] Jul, Generalized anxiety disorder F41.1 [facility] [address] [facility] [id number] [address] [address] Jul, Caries K02.9 [facility] [address] [facility] [id number] [address] [place] [id number] Jun, Generalized anxiety disorder F41.1 [facility] [address] [facility] [id number] [address] [place] [phone] Jun, Generalized anxiety disorder F41.1 and Bereavement Z63.4 [facility] [address] [facility] [id number] [address] [place] [phone] May, Generalized anxiety disorder F41.1 [facility] [address] [facility] [id number] [address] [place] [phone] May, Dysuria R30.0 [facility] [address] [facility] [id number] [address] [place] [id number] 09 May, 2019 Generalized anxiety disorder F41.1 and Bereavement Z63.4 [facility] [address] [facility] [id number] [address] [place] [address] May, [facility] [address] [facility] [id number] [address] [place] [id number] Apr, Generalized anxiety disorder F41.1 and Bereavement Z63.4 [facility] [address] [facility] [id number] [address] [place] [address] Apr, Generalized anxiety disorder F41.1 [facility] [address] [id number] [address] [address] Mar, Caries K02.9 ; Dental examin ation Z01.20 ; Periodontitis K05.30 and Oral health maintenance status requiring routine preventive dental care K08.9 [facility] [address] [facility] [id number] [address] [place] [phone] Mar, Generalized anxiety disorder F41.1 [facility] [address] [facility] [id number] [address] [place] [address] Mar, Gastrointestinal hemorrhage associated with gastroduodenitis K29.91 [facility] [address] [facility] [id number] [address] [place] [address] Mar, Generalized anxiety disorder F41.1 and Bereavement Z63.4 [facility] [address] [facility] [id number] [address] [place] [phone] Mar, [facility] [address] [facility] [id number] [address] [place] [id number] Mar, [facility] [address] [facility] [id number] [address] [place] [address] Mar, [facility] [address] [facility] [id number] [address] [place] [address] Mar, Tachycardia R00.0 and Essent ial hypertension I10 [facility] [address] [facility] [id number] [address] [place] [phone] Feb, Generalized anxiety disorder F41.1 [facility] [address] [id number] [address] [place] [id number] Feb, Generalized anxiety disorder F41.1 and Bereavement Z63.4 [facility] [address] [id number] [address] [place] [address] Feb, Generalized anxiety disorder F41.1 [facility] [address] [facility] [id number] [address] [place] [address] Feb, Generalized anxiety disorder F41.1 and Bereavement Z63.4 [facility] [address] [id number] [address] [place] [address] Jan, [facility] [address] [facility] [id number] [address] [place] [id number] Jan, Breast cancer screening by trenton crenshaw Z12.31 [facility] [address] [facility] [id number] [address] [place] [address] Jan, Generalized anxiety disorder F41.1 and Bereavement Z63.4 [facility] [address] [facility] [id number] [address] [place] [id number] Jan, [facility] [address] [facility] [id number] [address] [place] [address] December, Generalized anxiety disorder F41.1 and Bereavement Z63.4 [facility] [address] [facility] [id number] [address] [place] [address] December, Diverticulitis K57.92 ; Dysu nikc R30.0 ; Other constipation K59.09 and Lower abdominal pain R10.30 [facility] [address] [facility] [id number] [address] [place] [address] Nov, Diverticulitis K57.92 [facility] [address] [facility] [id number] [address] [place] [address] Nov, Generalized anxiety disorder F41.1 and Bereavement Z63.4 [facility] [address] [facility] [id number] [address] [place] [address] Nov, Generalized anxiety disorder F41.1 and Bereavement Z63.4 [facility] [address] [facility] [id number] [address] [place] [address] Nov, Diverticulitis K57.92 [facility] [address] [facility] [id number] [address] [place] [address] Oct, Diverticulitis K57.92 [facility] [address] [facility] [id number] [address] [place] [address] Oct, Diverticulitis K57.92 [facility] [address] [facility] [id number] [address] [place] [address] Oct, Generalized anxiety disorder F41.1 [facility] [address] [facility] [id number] [address] [place] [address] Oct, Right lower quadrant abdomin al pain R10.31 and Diverticulitis K57.92 [facility] [address] [place] [id number] [address] [place] [address] Sep, Generalized anxiety disorder F41.1 and Bereavement Z63.4 [place] [address] [place] [id number] [address] [place] [phone] Aug, [place] [address] [facility] [id number] [address] [place] [address] Aug, Generalized anxiety disorder F41.1 and Bereavement Z63.4 [facility] [address] [place] [id number] [address] [address] Aug, Caries K02.9 [facility] [address] [facility] [id number] [address] [place] [address] Jul, Generalized anxiety disorder F41.1 and Bereavement Z63.4 [place] [address] [facility] [id number] [address] [place] [address] Jul, Other acute gastritis withou t hemorrhage K29.00 ; Generalized anxiety disorder F41.1 ; Tachycardia R00.0 and Essential hypertension I10 [facility] [address] [facility] [id number] [address] [place] [phone] 05 Jul, 2018 Generalized anxiety disorder F41.1 and Bereavement Z63.4 [facility] [address] [facility] [id number] [address] [place] [id number] Jun, Generalized anxiety disorder F41.1 and Bereavement Z63.4 [facility] [address] [facility] [id number] [address] [place] [address] Jun, Generalized anxiety disorder F41.1 and Bereavement Z63.4 [facility] [address] [id number] [address] [address] Jun, Dental examination Z01.20 [facility] [address] [facility] [id number] [address] [place] [address] May, Generalized anxiety disorder F41.1 and Bereavement Z63.4 [facility] [address] [facility] [id number] [address] [place] [id number] May, Encounter for immunization Z 23 [facility] [address] [facility] [id number] [address] [place] [address] May, Generalized anxiety disorder F41.1 and Bereavement Z63.4 [facility] [address] [facility] [id number] [address] [place] [address] May, [facility] [address] [facility] [id number] [address] [place] [address] 24 Apr, 2018 Generalized anxiety disorder F41.1 and Bereavement Z63.4 [facility] [address] [facility] [id number] [address] [place] [id number] 17 Apr, 2018 [facility] [address] [facility] [id number] [address] [place] [address] 13 Apr, 2018 Diverticulitis K57.92 [facility] [address] [facility] [id number] [address] [place] [address] Apr, Generalized anxiety disorder F41.1 and Bereavement Z63.4 [facility] [address] [id number] [address] [place] [address] Mar, [facility] [address] [id number] [address] [place] [id number] Mar, Diverticulitis K57.92 [facility] [address] [id number] [address] [place] [id number] Mar, Generalized anxiety disorder F41.1 and Bereavement Z63.4 [facility] [address] [id number] [address] [place] [id number] Mar, Hypertension I10 [facility] [address] [id number] [address] [place] [address] Mar, Generalized anxiety disorder F41.1 and Bereavement Z63.4 [facility] [address] [facility] [id number] [address] [place] [address] Feb, Generalized anxiety disorder F41.1 and Bereavement Z63.4 [facility] [address] [id number] [address] [place] [address] Feb, [facility] [address] [facility] [id number] [address] [place] [id number] Feb, Generalized anxiety disorder F41.1 and Bereavement Z63.4 [facility] [address] [facility] [id number] [address] [place] [address] Feb, Generalized anxiety disorder F41.1 and Bereavement Z63.4 [facility] [address] [facility] [id number] [address] [place] [id number] Jan, Hypertension I10 and Acute n on-recurrent maxillary sinusitis J01.00 [facility] [address] [id number] [address] [place] [address] December, [facility] [address] [facility] [id number] [address] [place] [address] December, Hypertension I10 [facility] [address] [id number] [address] [place] [address] December, Generalized anxiety disorder F41.1 [facility] [address] [id number] [address] [place] [address] 16 Oct, 2017 Encounter for dental examina tion Z01.20 [facility] [address] [id number] [address] [place] [address] 06 Oct, 2017 Encounter for dental examina tion Z01.20 [facility] [address] [id number] [address] [place] [address] 02 Oct, 2017 Dental examination Z01.20 [facility] [address] [id number] [address] [place] [address] Oct, Generalized anxiety disorder F41.1 [facility] [address] [id number] [address] [place] [address] Aug, Dental examination Z01.20 [facility] [address] [id number] [address] [place] [address] Aug, Generalized anxiety disorder F41.1 [facility] [address] [id number] [address] [place] [phone] Aug, [facility] [address] [id number] [address] [place] [address] Aug, Encounter for dental examina tion Z01.20 [facility] [address] [id number] [address] [place] [address] Aug, Subacute maxillary sinusitis J01.00 [facility] [address] [id number] [address] [place] [address] Jul, Dental examination Z01.20 [facility] [address] [id number] [address] [place] [address] Jul, Generalized anxiety disorder F41.1 [facility] [address] [id number] [address] [place] [address] Jul, Diverticulitis K57.92 [facility] [address] [id number] [address] [place] [address] 28 Jun, 2017 Encounter for immunization Z 23 [facility] [address] [id number] [address] [place] [address] 22 Jun, 2017 Dental examination Z01.20 [facility] [address] [id number] [address] [place] [address] 14 Jun, 2017 Generalized anxiety disorder F41.1 [facility] [address] [id number] [address] [place] [address] 07 Jun, 2017 Dental examination Z01.20 [facility] [address] [id number] [address] [place] [id number] May, [facility] [address] [id number] [address] [place] [address] [id number] May, Dental examination Z01.20 [facility] [address] [id number] [address] [place] [id number] May, Dental examination Z01.20 [facility] [address] [id number] [address] [place] [address] May, Dental examination Z01.20 [facility] [address] [id number] [address] [place] [address] May, [facility] [address] [id number] [address] [place] [address] May, Generalized anxiety disorder F41.1 [facility] [address] [id number] [address] [place] [address] May, Localized edema R60.0 ; Yeas t vaginitis B37.3 and Gastroesophageal reflux disease with esophagitis K21.0 [facility] [address] [id number] [address] [place] [id number] Apr, Dental examination Z01.20 [facility] [address] [id number] [address] [address] Apr, Dental examination Z01.20 [facility] [address] [id number] [address] [address] 05 Apr, 2017 Dental examination Z01.20 [facility] [address] [id number] [address] [place] [address] Mar, Dyspepsia R10.13 [facility] [address] [id number] [address] [place] [address] Mar, Generalized anxiety disorder F41.1 [facility] [address] [id number] [address] [address] Mar, Encounter for dental examina tion Z01.20 [facility] [address] [id number] [address] [place] [address] [id number] Mar, [facility] [address] [id number] [address] [place] [address] [id number] Mar, Dental examination Z01.20 [facility] [address] [id number] [address] [place] [address] Feb, Hypertension I10 and Tachyca rdia R00.0 [facility] [address] [id number] [address] [address] Feb, [facility] [address] [id number] [address] [place] [address] Feb, Generalized anxiety disorder F41.1 [facility] [address] [id number] [address] [place] [id number] Feb, Dental examination Z01.20 [facility] [address] [id number] [address] [place] [address] Jan, Generalized anxiety disorder F41.1 [facility] [address] [id number] [address] [place] [phone] December, Generalized anxiety disorder F41.1 [facility] [address] [id number] [address] [place] [address] [id number] December, Encounter for dental examina tion Z01.20 [facility] [address] [id number] [address] [place] [phone] Nov, [facility] [address] [id number] [address] [place] [phone] Nov, [facility] [address] [id number] [address] [place] [id number] Nov, Generalized anxiety disorder F41.1 [facility] [address] [facility] [id number] [address] [place] [phone] Oct, [facility] [address] [id number] [address] [place] [address] [id number] Oct, Dental examination Z01.20 [facility] [address] [facility] [id number] [address] [place] [address] Oct, Vaginal dryness N89.8 [facility] [address] [facility] [id number] [address] [place] [address] Oct, Pseudoseizures F44.5 [facility] [address] [facility] [id number] [address] [place] [address] Oct, Generalized anxiety disorder F41.1 [facility] [address] [facility] [id number] [address] [place] [address] Sep, Abnormal uterine bleeding (A UB) N93.9 ; Vaginal dryness N89.8 and Screening breast examination Z12.39 [facility] [address] [facility] [id number] [address] [place] [address] Sep, Dental examination Z01.20 [facility] [address] [facility] [id number] [address] [place] [id number] Sep, Generalized anxiety disorder F41.1 [facility] [address] [facility] [id number] [address] [place] [phone] 06 Sep, 2016 Unspecified ovarian cyst, ri ght side N83.201 ; Unspecified ovarian cyst, left side N83.202 ; Yeast infection of the vagina B37.3 ; Mitral valve prolapse I34.1 and Hypertension I10 [facility] [address] [facility] [id number] [address] [place] [id number] Aug, Generalized anxiety disorder F41.1 [facility] [address] [facility] [id number] [address] [place] [id number] Jul, [facility] [address] [facility] [id number] [address] [place] [id number] Jul, Generalized anxiety disorder F41.1 [facility] [address] [facility] [id number] [address] [place] [phone] Jun, Generalized anxiety disorder F41.1 [facility] [address] [facility] [id number] [address] [place] [phone] 28 May, 2016 Encounter for immunization Z 23 [facility] [address] [facility] [id number] [address] [place] [id number] 17 May, 2016 Generalized anxiety disorder F41.1 and Depressive disorder, not elsewhere classified F32.9 [facility] [address] [facility] [id number] [address] [place] [id number] 28 Apr, 2016 Hypertension I10 [facility] [address] [facility] [id number] [address] [place] [id number] 22 Apr, 2016 Cervicalgia M54.2 [facility] [address] [facility] [id number] [address] [place] [phone] 12 Apr, 2016 Cervicalgia M54.2 [facility] [address] [facility] [id number] [address] [place] [phone] 09 Mar, 2016 Generalized anxiety disorder F41.1 and Depressive disorder, not elsewhere classified F32.9 [facility] [address] [address] [id number] [address] [place] [address] [id number] 14 Feb, 2016 Visit for dental examination Z01.20 [facility] [address] [facility] [id number] [address] [place] [id number] 11 Feb, 2016 Pseudoseizures F44.5 ; Migra ine without status migrainosus, not intractable, unspecified migraine type G43.909 and Essential hypertension I10 [facility] [address] [id number] [address] [place] [address] [id number] 06 Feb, 2016 Dental examination Z01.20 [facility] [address] [id number] [address] [place] [id number] 05 Feb, 2016 Generalized anxiety disorder F41.1 and Depressive disorder, not elsewhere classified F32.9 [facility] [address] [facility] [id number] [address] [place] [id number] Jan, Tachycardia R00.0 [facility] [address] [facility] [id number] [address] [place] [phone] December, Eustachian tube dysfunction, bilateral H69.83 [facility] [address] [facility] [id number] [address] [place] [phone] December, Generalized anxiety disorder F41.1 and Depressive disorder, not elsewhere classified F32.9 [facility] [address] [facility] [id number] [address] [place] [id number] Nov, [facility] [address] [facility] [id number] [address] [place] [address] Nov, [facility] [address] [facility] [id number] [address] [place] [id number] Nov, Hypertension I10 ; Onychomyc osis B35.1 [...] and Complex cyst of left ovary N83.29 [place] [id number] [place] [id number] [address] [place] [id number] 14 Nov, 2015 Sinusitis J32.9 [place] [address] [place] [id number] [address] [place] [address] Oct, Complex cyst of left ovary N 83.29 [place] [address] [place] [id number] [address] [place] [phone] Oct, Onychomycosis B35.1 [facility] [address] [place] [id number] [address] [place] [address] [id number] Oct, Dental examination Z01.20 [place] [address] [id number] 09 Oct, 2015 Well woman exam Z01.419 [...] History of colon polyps Z86.010 [place] [address] [place] [id number] [address] [place] [phone] Oct, Generalized anxiety disorder F41.1 and Depressive disorder, not elsewhere classified F32.9 [place] [address] [place] [id number] [address] [place] [id number] Sep, Hypertension I10 and Onychom ycosis B35.1 [place] [address] [id number] 16 Sep, 2015 Skin tags, multiple acquired L91.8 [place] [address] [place] [id number] [address] [place] [id number] Aug, [place] [address] [place] [address] Aug, [facility] [address] [id number] [address] [place] [id number] Aug, [facility] [address] [id number] [address] [place] [phone] Aug, Generalized anxiety disorder F41.1 and Depressive disorder, not elsewhere classified F32.9 [facility] [address] [id number] [address] [place] [id number] Jul, Skin lesion L98.9 [facility] [address] [id number] [address] [place] [id number] Jun, Generalized anxiety disorder F41.1 and Depressive disorder, not elsewhere classified F32.9 [facility] [address] [id number] [address] [place] [id number] Jun, [facility] [address] [facility] [id number] [address] [place] [id number] Jun, Generalized anxiety disorder F41.1 [facility] [address] [id number] [address] [place] [id number] May, Encounter for immunization Z 23 and Right shoulder pain M25.511 [facility] [address] [id number] [address] [place] [id number] 28 Apr, 2015 [facility] [address] [facility] [id number] [address] [place] [id number] 14 Apr, 2015 Generalized anxiety disorder 300.02 and Depressive disorder, not elsewhere classified 311 [facility] [address] [id number] [address] [place] [address] [id number] Mar, Dental examination V72.2 [facility] [address] [id number] [address] [place] [id number] Mar, Generalized anxiety disorder 300.02 and Depressive disorder, not elsewhere classified 311 [facility] [address] [id number] [address] [place] [id number] Mar, Depression, major, recurrent , 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.35 and 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 [facility] [address] [facility] [id number] [address] [place] [phone] Feb, Generalized anxiety disorder 300.02 and Depressive disorder, not elsewhere classified 311 [facility] [address] [id number] [address] [place] [address] [id number] 07 Feb, 2015 Dental examination V72.2 [facility] [address] [facility] [id number] [address] [place] [address] Jan, Generalized anxiety disorder 300.02 and Depressive disorder, not elsewhere classified 311 [facility] [address] [facility] [id number] [address] [place] [id number] Jan, [facility] [address] [facility] [id number] [address] [place] [id number] December, Generalized anxiety disorder 300.02 and Depressive disorder, not elsewhere classified 311 [facility] [address] [place] [id number] [address] [place] [phone] December, Major depressive disorder, r ecurrent, unspecified 296.30 and Panic disorder with agoraphobia 300.21 [facility] [address] [facility] [id number] [address] [place] [id number] Nov, [facility] [address] [place] [id number] [address] [place] [id number] Nov, [facility] [address] [facility] [id number] [address] [place] [id number] Oct, [facility] [address] [place] [id number] [address] [place] [id number] Oct, [facility] [address] [place] [id number] [address] [place] [phone] Oct, [facility] [address] [place] [id number] [address] [place] [id number] Oct, [facility] [address] [place] [id number] [address] [place] [id number] Sep, 2014 [facility] [address] [id number] [address] [place] [address], [place] [address] Sep, 2014 [facility] [address] [id number] [address] [place] [address], [place] [address] Sep, 2014 [facility] [address] [id number] [address] [place] [address], [place] [address] Sep, 2014 [facility] [address] [id number] [address] [place] [address], [place] [address] Sep, 2014 [facility] [address] [id number] [address] [place] [address], [place] [address] Sep, 2014 [facility] [address] [id number] [address] [place] [address], [place] [address] Sep, 2014 [facility] [address] [id number] [address] [place] [address], [place] [address] Sep, 2014 [facility] [address] [id number] [address] [place] [address], [place] [address] Sep, 2014 [facility] [address] [id number] [address] [place] [address], [place] [address] Sep, 2014 [facility] [address] [id number] [address] [place] [address], [place] [address] Aug, [facility] [address] [id number] [address] [place] [address], [place] [address] Aug, [facility] [address] [id number] [address] [place] [address], [place] [address] Jul, [facility] [address] [id number] [address] [place] [address], [place] [address] Jul, [facility] [address] [id number] [address] [place] [address], [place] [address] Jul, [facility] [address] [id number] [address] [place] [address], [place] [address] Jul, [facility] [address] [id number] [address] [place] [address], [place] [address] Jul, [facility] [address] [id number] [address] [place] [address], [place] [address] Jul, [facility] [address] [id number] [address] [place] [address], [place] [address] Jul, [facility] [address] [id number] [address] [place] [address], [place] [address] Jul, [facility] [address] [id number] [address] [place] [address], [place] [address] Jul, [facility] [address] [id number] [address] [place] [address], [place] [address] Jul, [facility] [address] [id number] [address] [place] [address], [place] [address] Jul, [facility] [address] [id number] [address] [place] [address], [place] [address] Jul, [facility] [address] [id number] [address] [place] [address], [place] [address] Jun, [facility] [address] [id number] [address] [place] [address], [place] [address] Jun, [facility] [address] [id number] [address] [place] [address], [place] [address] May, [facility] [address] [id number] [address] [place] [address], [place] [address] May, [facility] [address] [id number] [address] [place] [address], [place] [address] May, [facility] [address] [id number] [address] [place] [address], [place] [address] May, [facility] [address] [id number] [address] [place] [address], [place] [address] May, [facility] [address] [id number] [address] [place] [address] May, [facility] [address] [id number] [address] [place] [address], [place] [address] May, [facility] [address] [id number] [address] [place] [address], [place] [address] May, [facility] [address] [id number] [address] [place] [address], [place] [address] May, [facility] [address] [id number] [address] [place] [address], [place] [address] May, [facility] [address] [id number] [address] [place] [address], [place] [address] May, [facility] [address] [id number] [address] [place] [address], [place] [address] May, [facility] [address] [id number] [address] [place] [address], [place] [address] Apr, [facility] [address] [id number] [address] [place] [address], [place] [address] 30 Apr, 2014 [facility] [address] [id number] [address] [place] [address], [place] [address] Apr, [facility] [address] [id number] [address] [place] [address], [place] [address] Apr, [facility] [address] [id number] [address] [place] [address], [place] [address] Apr, [facility] [address] [id number] [address] [place] [address], [place] [address] Apr, [facility] [address] [id number] [address] [place] [address], [place] [address] Feb, [facility] [address] [id number] [address] [place] [address], [place] [address] Feb, [facility] [address] [id number] [address] [place] [address], [place] [address] Feb, [facility] [address] [id number] [facility] [place] [address] Feb, [facility] [address] [id number] [facility] [place] [address] Feb, [facility] [address] [id number] [facility] [place] [address] Feb, [facility] [address] [id number] [address] [place] [address], [place] [address] Jan, [facility] [address] [id number] [address] [place] [address], [place] [address] Jan, [facility] [address] [id number] [address] [place] [address], [place] [address] Jan, [facility] [address] [id number] [address] [place] [address], [place] [address] Jan, [facility] [address] [id number] [address] [place] [address], [place] [address] Jan, [facility] [address] [id number] [address] [place] [address], [place] [address] Jan, [facility] [address] [id number] [address] [place] [address], [place] [address] Jan, [facility] [address] [id number] [address] [place] [address], [place] [address] Jan, [facility] [address] [id number] [address] [place] [address], [place] [address] December, [facility] [address] [id number] [address] [place] [address], [place] [address] December, [facility] [address] [id number] [address] [place] [address], [place] [address] December, [facility] [address] [id number] [address] [place] [address], [place] [address] December, [facility] [address] [id number] [address] [place] [address], [place] [address] Nov, [facility] [address] [id number] [facility] [place] [address] Nov, [facility] [address] [id number] [address] [place] [address], [place] [address] Nov, [facility] [address] [id number] [address] [place] [address], [place] [address] Nov, [facility] [address] [id number] [address] [place] [address], [place] [address] Nov, [facility] [address] [id number] [address] [place] [address], [place] [address] Nov, [facility] [address] [id number] [address] [place] [address], [place] [address] Nov, [facility] [address] [id number] [address] [place] [address], [place] [address] Nov, [facility] [address] [id number] [address] [place] [address], [place] [address] Oct, [facility] [address] [id number] [address] [place] [address], [place] [address] Oct, [facility] [address] [id number] [address] [place] [address], [place] [address] Sep, [facility] [address] [id number] [address] [place] [address], [place] [address] Sep, [facility] [address] [id number] [address] [place] [address] [id number] Sep, [facility] [address] [id number] [address] [place] [address], [place] [address] Sep, [facility] [address] [id number] [address] [place] [address], [place] [address] Sep, [facility] [address] [id number] [address] [place] [address], [place] [address] Sep, [facility] [address] [id number] [address] [place] [address], [place] [address] 15 Aug, 2013 [facility] [address] [id number] [address] [place] [address], [place] [address] Aug, [facility] [address] [id number] [address] [place] [address], [place] [address] Aug, [facility] [address] [id number] [address] [place] [address], [place] [address] Aug, [facility] [address] [id number] [address] [place] [address], [place] [address] Jul, [facility] [address] [id number] [address] [place] [address], [place] [address] Jul, [facility] [address] [id number] [address] [place] [address], [place] [address] Jul, [facility] [address] [id number] [address] [place] [address], [place] [address] Jul, [facility] [address] [id number] [address] [place] [address], [place] [address] Jun, [facility] [address] [id number] [address] [place] [address], [place] [address] Jun, [facility] [address] [id number] [address] [place] [address], [place] [address] May, [facility] [address] [id number] [address] [place] [address], [place] [address] 24 May, 2013 [facility] [address] [id number] [address] [place] [address], [place] [address] May, [facility] [address] [id number] [address] [place] [address], [place] [address] 11 May, 2013 [facility] [address] [id number] [address] [place] [address], [place] [address] 10 May, 2013 [facility] [address] [id number] [address] [place] [address], [place] [address] Apr, [facility] [address] [id number] [address] [place] [address], [place] [address] Apr, [facility] [address] [id number] [address] [place] [address], [place] [address] Mar, [facility] [address] [id number] [address] [place] [address], [place] [address] Mar, [facility] [address] [id number] [address] [place] [address], [place] [address] Mar, [facility] [address] [id number] [address] [place] [address], [place] [address] Mar, [facility] [address] [id number] [address] [place] [address], [place] [address] Feb, [facility] [address] [id number] [address] [place] [address], [place] [address] Feb, [facility] [address] [id number] [address] [place] [address], [place] [address] Feb, [facility] [address] [id number] [address] [place] [address], [place] [address] Feb, [facility] [address] [id number] [address] [place] [address], [place] [address] Feb, [facility] [address] [id number] [address] [place] [address], [place] [address] Jan, [facility] [address] [id number] [address] [place] [address], [place] [address] Jan, [facility] [address] [id number] [address] [place] [address], [place] [address] Jan, [facility] [address] [id number] [address] [place] [address], [place] [address] Jan, [facility] [address] [id number] [address] [place] [address], [place] [address] Jan, [facility] [address] [id number] [address] [place] [address], [place] [address] December, [facility] [address] [id number] [address] [place] [address], [place] [address] December, [facility] [address] [id number] [address] [place] [address], [place] [address] Nov, [facility] [address] [id number] [address] [place] [address], [place] [address] Nov, [facility] [address] [id number] [address] [place] [address], [place] [address] Oct, [facility] [address] [id number] [address] [place] [address], [place] [address] Oct, [facility] [address] [id number] [address] [place] [address], [place] [address] 05 Oct, 2012 [facility] [address] [id number] [address] [place] [address], [place] [address] 14 Sep, 2012 [facility] [address] [id number] [address] [place] [address], [place] [address] Aug, [facility] [address] [id number] [address] [place] [address], [place] [address] Aug, [facility] [address] [id number] [address] [place] [address], [place] [address] Aug, [facility] [address] [id number] [address] [place] [address], [place] [address] Aug, [facility] [address] [id number] [address] [place] [address], [place] [address] Jul, [facility] [address] [id number] [address] [place] [address], [place] [address] Jul, [facility] [address] [id number] [address] [place] [address], [place] [address] Jul, [facility] [address] [id number] [address] [place] [address], [place] [address] Jul, [facility] [address] [id number] [address] [place] [address], [place] [address] Jul, [facility] [address] [id number] [address] [place] [address], [place] [address] Jul, [facility] [address] [id number] [address] [place] [address], [place] [address] Jul, [facility] [address] [id number] [address] [place] [address], [place] [address] Jul, [facility] [address] [id number] [address] [place] [address], [place] [address] Jun, [facility] [address] [id number] [address] [place] [address], [place] [address] Jun, [facility] [address] [id number] [address] [place] [address], [place] [address] Jun, [facility] [address] [id number] [address] [place] [address], [place] [address] Jun, [facility] [address] [id number] [address] [place] [address], [place] [address] Jun, [facility] [address] [id number] [address] [place] [address], [place] [address] Jun, [facility] [address] [id number] [address] [place] [address], [place] [address] May, [facility] [address] [id number] [address] [place] [address], [place] [address] May, [facility] [address] [id number] [address] [place] [address], [place] [address] May, [facility] [address] [id number] [address] [place] [address], [place] [address] May, [facility] [address] [id number] [address] [place] [address], [place] [address] 26 Apr, 2012 [facility] [address] [id number] [address] [place] [address] [address] 06 Apr, 2012 [facility] [address] [id number] [address] [place] [address], [place] [address] 08 Mar, 2012 [facility] [address] [id number] [address] [place] [address], [place] [address] 28 Jan, 2012 [facility] [address] [address] [id number] [address] [place] [address], [place] [address] 20 Jan, 2012 [facility] [address] [id number] [address] [place] [address], [place] [address] 16 Jan, 2012 [facility] [address] [id number] [address] [place] [address], [place] [address] 15 Jan, 2012 [facility] [address] [id number] [address] [place] [address], [place] [address] 14 Jan, 2012 [facility] [address] [id number] [address] [place] [address], [place] [address] 14 Jan, 2012 [facility] [address] [id number] [address] [place] [address], [place] [address] 07 Jan, 2012 [facility] [address] [id number] [address] [place] [address], [place] [address] December, [facility] [address] [id number] [address] [place] [address], [place] [address] December, [facility] [address] [id number] [address] [place] [address], [place] [address] December, [facility] [address] [id number] [address] [place] [address], [place] [address] December, [facility] [address] [id number] [address] [place] [address], [place] [address] Nov, [facility] [address] [id number] [address] [place] [address], [place] [address] Nov, [facility] [address] [id number] [address] [place] [address], [place] [address] Oct, [facility] [address] [id number] [address] [place] [address], [place] [address] 28 Oct, 2011 [facility] [address] [id number] [address] [place] [address], [place] [address] Oct, [facility] [address] [id number] [address] [place] [address], [place] [address] Sep, [facility] [address] [id number] [address] [place] [address], [place] [address] Sep, [facility] [address] [id number] [address] [place] [address], [place] [address] Sep, [facility] [address] [id number] [address] [place] [address], [place] [address] Aug, [facility] [address] [id number] [address] [place] [address], [place] [address] Aug, [facility] [address] [id number] [address] [place] [address], [place] [address] Aug, [facility] [address] [id number] [address] [place] [address], [place] [address] Aug, [facility] [address] [id number] [address] [place] [address], [place] [address] Aug, [facility] [address] [id number] [address] [place] [address], [place] [address] Aug, [facility] [address] [id number] [address] [place] [address], [place] [address] Aug, [facility] [address] [id number] [address] [place] [address], [place] [address] Jul, [facility] [address] [id number] [address] [place] [address], [place] [address] Jul, [facility] [address] [id number] [address] [place] [address], [place] [address] Jun, [facility] [address] [id number] [address] [place] [address], [place] [address] Jun, [facility] [address] [id number] [address] [place] [address], [place] [address] 17 Jun, 2011 [facility] [address] [id number] [address] [place] [address], [place] [address] 15 Jun, 2011 [facility] [address] [id number] [address] [place] [address], [place] [address] 14 Jun, 2011 [facility] [address] [id number] [address] [place] [address], [place] [address] 14 Jun, 2011 [facility] [address] [id number] [address] [place] [address], [place] [address] Jun, [facility] [address] [id number] [address] [place] [address], [place] [address] Jun, [facility] [address] [id number] [address] [place] [address], [place] [address] Jun, [facility] [address] [id number] [address] [place] [id number] Jun, [facility] [address] [id number] [address] [place] [address], [place] [address] May, [facility] [address] [id number] [address] [place] [address] May, [facility] [address] [id number] [address] [place] [address] May, [facility] [address] [id number] [address] [place] [id number] 24 May, 2011 [facility] [address] [id number] [address] [place] [id number] 18 May, 2011 [facility] [address] [id number] [address] [place] [id number] 13 May, 2011 [facility] [address] [id number] [address] [place] [address] Feb, [facility] [address] [id number] [address] [place] [id number] December, [facility] [address] [id number] [address] [place] [address] Jul, [facility] [address] [id number] [address] [place] [id number] Jul, [facility] [address] [id number] [address] [place] [address] Jul, [facility] [address] [id number] [address] [place] [id number] Jul, [facility] [address] [id number] [address] [place] [id number] Jun, [facility] [address] [id number] [address] [place] [id number] Jul, [facility] [address] [id number] [address] [place] [id number] Jul, [facility] [address] [id number] [address] [place] [id number] Jul, [facility] [address] [id number] [address] [place] [id number] Jul, [facility] [address] [id number] [address] [place] [address] Jul, [facility] [address] [id number] [address] [place] [id number] Jul, [facility] [address] [id number] [address] [place] [id number] Jan, [facility] [address] [id number] [address] [place] [id number] 16 Sep, 2008 [facility] [address] [id number] [address] [place] [id number] 11 Sep, 2008 IMMUNIZATIONS No Known Immunizations [...]
--- OUTSIDE RECORDS SUMMARY | 2020-01-27 10:00 | XMS REPORT ---
Author Author Silvia WILKINS Organization [facility] Address [address] [place] [address] Care Team Providers [employer] Worker Name Role Phone LETTY WILKINS Unavailable PROBLEMS Type Condition ICD9-CM Code NQP01-PF Code Onset Dates Condition S tatus SNOMED Code Problem Hypertension I10 Active 6327802 3 Problem Generalized anxiety disorder F41.1 A ctive 508741809 Problem History of colon polyps Z86.010 Active 073996623 Problem History of diverticulitis Z87.19 Acti ve [id number] Problem Family history of diabetes mellitus Z83.3 Active 372331497 Problem Excessive and frequent menstruation with irregular cycle N92.1 Active 570137968 Problem Hot flashes N95.1 Active 78305400 8 Problem Gastroesophageal reflux disease with esophagitis K 21.0 Active 753272399 Problem History of ovarian cyst Z87.42 Active 83540639 Problem Diverticulitis K57.92 Active 51266 6006 Problem Dense breast tissue R92.2 Active 272984114 Problem Perimenopausal N95.1 Active 54729 5998969198 Problem Mitral valve prolapse I34.1 Active 529651498 Problem Abnormal uterine bleeding (AUB) N93.9 Active 40782519218565 Problem Tachycardia R00.0 Active 6408839 ALLERGIES No Information ENCOUNTERS Encounter Location Date Diagnosis [facility] [address] [facility] [id number] [address] [place] [phone] Jan, [facility] [address] [facility] [id number] [address] [place] [phone] December, [facility] [address] [facility] [id number] [address] [place] [phone] Nov, Generalized anxiety disorder F41.1 and Bereavement Z63.4 [place] [address] [facility] [id number] [address] [place] [phone] 16 Nov, 2019 Generalized anxiety disorder F41.1 and Bereavement Z63.4 [facility] [address] [id number] [address] [place] [phone] 13 Nov, 2019 [facility] [address] [id number] [address] [place] [id number] 08 Nov, 2019 [facility] [address] [id number] [address] [place] [phone] 06 Nov, 2019 Generalized anxiety disorder F41.1 [facility] [address] [id number] [address] [place] [phone] 30 Oct, 2019 Generalized anxiety disorder F41.1 and Bereavement Z63.4 [facility] [address] [id number] [address] [place] [phone] 16 Oct, 2019 Acute non-recurrent sinusiti s, unspecified location J01.90 [facility] [address] [id number] [address] [place] [phone] 05 Oct, 2019 Acute non-recurrent frontal sinusitis J01.10 [facility] [address] [id number] [address] [place] [phone] 27 Sep, 2019 Generalized anxiety disorder F41.1 and Bereavement Z63.4 [facility] [address] [id number] [address] [place] [phone] 17 Sep, 2019 [facility] [address] [id number] [address] [place] [phone] Sep, Generalized anxiety disorder F41.1 and Bereavement Z63.4 [facility] [address] [id number] [address] [place] [phone] 15 Aug, 2019 Generalized anxiety disorder F41.1 and Bereavement Z63.4 [facility] [address] [id number] [address] [place] [phone] 13 Aug, 2019 Generalized anxiety disorder F41.1 [facility] [address] [id number] [address] [place] [phone] Aug, Viral upper respiratory trac t infection J06.9 [facility] [address] [facility] [id number] [address] [place] [phone] Jul, Generalized anxiety disorder F41.1 and Bereavement Z63.4 [facility] [address] [facility] [id number] [address] [place] [phone] Jul, Acute non-recurrent frontal sinusitis J01.10 [facility] [address] [facility] [id number] [address] [place] [phone] Jul, [facility] [address] [facility] [id number] [address] [place] [phone] Jul, Sore throat J02.9 and Uvulit is K12.2 [facility] [address] [facility] [id number] [address] [place] [phone] Jul, Generalized anxiety disorder F41.1 [facility] [address] [facility] [id number] [place] [address] Jul, Caries K02.9 [facility] [address] [facility] [id number] [address] [place] [phone] Jun, Generalized anxiety disorder F41.1 [facility] [address] [facility] [id number] [address] [place] [phone] Jun, Generalized anxiety disorder F41.1 and Bereavement Z63.4 [facility] [address] [facility] [id number] [address] [place] [phone] May, Generalized anxiety disorder F41.1 [facility] [address] [facility] [id number] [address] [place] [phone] May, Dysuria R30.0 [facility] [address] [facility] [id number] [address] [place] [phone] 09 May, 2019 Generalized anxiety disorder F41.1 and Bereavement Z63.4 [facility] [address] [facility] [id number] [address] [place] [phone] May, [facility] [address] [facility] [id number] [address] [place] [phone] Apr, Generalized anxiety disorder F41.1 and Bereavement Z63.4 [facility] [address] [facility] [id number] [address] [place] [phone] Apr, Generalized anxiety disorder F41.1 [facility] [address] [facility] [id number] [address] [address] Mar, Caries K02.9 ; Dental examin ation Z01.20 ; Periodontitis K05.30 and Oral health maintenance status requiring routine preventive dental care K08.9 [facility] [address] [facility] [id number] [address] [place] [phone] Mar, Generalized anxiety disorder F41.1 [facility] [address] [facility] [id number] [address] [place] [phone] Mar, Gastrointestinal hemorrhage associated with gastroduodenitis K29.91 [facility] [address] [facility] [id number] [address] [place] [phone] Mar, Generalized anxiety disorder F41.1 and Bereavement Z63.4 [facility] [address] [facility] [id number] [address] [place] [phone] Mar, [facility] [address] [facility] [id number] [address] [place] [phone] Mar, [facility] [address] [facility] [id number] [address] [place] [phone] Mar, [facility] [address] [facility] [id number] [address] [place] [phone] Mar, Tachycardia R00.0 and Essent ial hypertension I10 [facility] [address] [facility] [id number] [address] [place] [phone] Feb, Generalized anxiety disorder F41.1 [facility] [address] [id number] [address] [place] [phone] Feb, Generalized anxiety disorder F41.1 and Bereavement Z63.4 [facility] [address] [id number] [address] [place] [phone] Feb, Generalized anxiety disorder F41.1 [facility] [address] [facility] [id number] [address] [place] [phone] Feb, Generalized anxiety disorder F41.1 and Bereavement Z63.4 [facility] [address] [id number] [address] [place] [phone] Jan, [facility] [address] [facility] [id number] [address] [place] [phone] Jan, Breast cancer screening by [facility] crenshaw Z12.31 [facility] [address] [facility] [id number] [address] [place] [phone] Jan, Generalized anxiety disorder F41.1 and Bereavement Z63.4 [facility] [address] [facility] [id number] [address] [place] [phone] Jan, [facility] [address] [facility] [id number] [address] [place] [phone] December, Generalized anxiety disorder F41.1 and Bereavement Z63.4 [facility] [address] [facility] [id number] [address] [place] [phone] December, Diverticulitis K57.92 ; Dysu nick R30.0 ; Other constipation K59.09 and Lower abdominal pain R10.30 [facility] [address] [facility] [id number] [address] [place] [phone] Nov, Diverticulitis K57.92 [facility] [address] [facility] [id number] [address] [place] [phone] Nov, Generalized anxiety disorder F41.1 and Bereavement Z63.4 [facility] [address] [facility] [id number] [address] [place] [phone] Nov, Generalized anxiety disorder F41.1 and Bereavement Z63.4 [facility] [address] [facility] [id number] [address] [place] [address] Nov, Diverticulitis K57.92 [facility] [address] [facility] [id number] [address] [place] [phone] Oct, Diverticulitis K57.92 [facility] [address] [facility] [id number] [address] [place] [address] Oct, Diverticulitis K57.92 [facility] [address] [place] [id number] [address] [place] [phone] Oct, Generalized anxiety disorder F41.1 [facility] [address] [facility] [id number] [address] [place] [phone] Oct, Right lower quadrant abdomin al pain R10.31 and Diverticulitis K57.92 [facility] [address] [place] [id number] [address] [place] [phone] Sep, Generalized anxiety disorder F41.1 and Bereavement Z63.4 [place] [id number] [place] [phone] Aug, [facility] [address] [facility] [id number] [address] [place] [phone] Aug, Generalized anxiety disorder F41.1 and Bereavement Z63.4 [facility] [id number] [address] Aug, Caries K02.9 [facility] [address] [facility] [id number] [address] [place] [phone] Jul, Generalized anxiety disorder F41.1 and Bereavement Z63.4 [place] [address] [facility] [address] [facility] [id number] [address] [place] [phone] Jul, Other acute gastritis withou t hemorrhage K29.00 ; Generalized anxiety disorder F41.1 ; Tachycardia R00.0 and Essential hypertension I10 [facility] [address] [facility] [id number] [address] [place] [address] 05 Jul, 2018 Generalized anxiety disorder F41.1 and Bereavement Z63.4 [facility] [address] [facility] [id number] [address] [place] [phone] Jun, Generalized anxiety disorder F41.1 and Bereavement Z63.4 [facility] [address] [facility] [id number] [address] [place] [phone] Jun, Generalized anxiety disorder F41.1 and Bereavement Z63.4 [facility] [address] [id number] [place] [address] Jun, Dental examination Z01.20 [facility] [address] [facility] [id number] [address] [place] [phone] May, Generalized anxiety disorder F41.1 and Bereavement Z63.4 [facility] [address] [facility] [id number] [address] [place] [phone] May, Encounter for immunization Z 23 [facility] [address] [facility] [id number] [address] [place] [phone] 08 May, 2018 Generalized anxiety disorder F41.1 and Bereavement Z63.4 [facility] [address] [facility] [id number] [address] [place] [phone] May, [facility] [address] [facility] [id number] [address] [place] [phone] 24 Apr, 2018 Generalized anxiety disorder F41.1 and Bereavement Z63.4 [facility] [address] [facility] [id number] [address] [place] [phone] 17 Apr, 2018 [facility] [address] [facility] [id number] [address] [place] [phone] 13 Apr, 2018 Diverticulitis K57.92 [facility] [address] [facility] [id number] [address] [place] [phone] 10 Apr, 2018 Generalized anxiety disorder F41.1 and Bereavement Z63.4 [facility] [address] [id number] [address] [place] [phone] Mar, [facility] [address] [id number] [address] [place] [address] Mar, Diverticulitis K57.92 [facility] [address] [id number] [address] [place] [address] Mar, Generalized anxiety disorder F41.1 and Bereavement Z63.4 [facility] [address] [id number] [address] [place] [phone] Mar, Hypertension I10 [facility] [address] [id number] [address] [place] [phone] Mar, Generalized anxiety disorder F41.1 and Bereavement Z63.4 [facility] [address] [id number] [address] [place] [phone] Feb, Generalized anxiety disorder F41.1 and Bereavement Z63.4 [facility] [address] [id number] [address] [place] [phone] Feb, [facility] [address] [facility] [id number] [address] [place] [phone] Feb, Generalized anxiety disorder F41.1 and Bereavement Z63.4 [facility] [address] [facility] [id number] [address] [place] [address] Feb, Generalized anxiety disorder F41.1 and Bereavement Z63.4 [facility] [address] [id number] [address] [place] [phone] Jan, Hypertension I10 and Acute n on-recurrent maxillary sinusitis J01.00 [facility] [address] [id number] [address] [place] [phone] December, [facility] [address] [id number] [address] [place] [phone] December, Hypertension I10 [facility] [address] [id number] [address] [place] [phone] December, Generalized anxiety disorder F41.1 [facility] [address] [id number] [place] [address] 16 Oct, 2017 Encounter for dental examina tion Z01.20 [facility] [address] [id number] [address] [place] [phone] 06 Oct, 2017 Encounter for dental examina tion Z01.20 [facility] [address] [id number] [address] [place] [phone] 02 Oct, 2017 Dental examination Z01.20 [facility] [address] [id number] [address] [place] [phone] Oct, Generalized anxiety disorder F41.1 [facility] [address] [id number] [address] [place] [address] Aug, Dental examination Z01.20 [facility] [address] [id number] [address] [place] [phone] Aug, Generalized anxiety disorder F41.1 [facility] [address] [id number] [address] [place] [phone] Aug, [facility] [address] [id number] [address] [place] [phone] Aug, Encounter for dental examina tion Z01.20 [facility] [address] [id number] [address] [place] [phone] Aug, Subacute maxillary sinusitis J01.00 [facility] [address] [id number] [address] [place] [phone] Jul, Dental examination Z01.20 [facility] [address] [id number] [address] [place] [phone] Jul, Generalized anxiety disorder F41.1 [facility] [address] [id number] [address] [place] [phone] Jul, Diverticulitis K57.92 [facility] [address] [id number] [address] [place] [phone] Jun, Encounter for immunization Z 23 [facility] [address] [id number] [address] [place] [phone] 22 Jun, 2017 Dental examination Z01.20 [facility] [address] [id number] [address] [place] [phone] 14 Jun, 2017 Generalized anxiety disorder F41.1 [facility] [address] [id number] [address] [place] [phone] 07 Jun, 2017 Dental examination Z01.20 [facility] [address] [id number] [address] [place] [phone] May, [facility] [address] [id number] [address] [place] [id number] May, Dental examination Z01.20 [facility] [address] [id number] [address] [place] [id number] May, Dental examination Z01.20 [facility] [address] [id number] [address] [place] [phone] May, Dental examination Z01.20 [facility] [address] [id number] [address] [place] [phone] May, [facility] [address] [id number] [address] [place] [phone] May, Generalized anxiety disorder F41.1 [facility] [address] [id number] [address] [place] [phone] May, Localized edema R60.0 ; Yeas t vaginitis B37.3 and Gastroesophageal reflux disease with esophagitis K21.0 [facility] [address] [id number] [address] [place] [id number] Apr, Dental examination Z01.20 [facility] [address] [id number] [place] [address] Apr, Dental examination Z01.20 [facility] [address] [id number] [place] [phone] 05 Apr, 2017 Dental examination Z01.20 [facility] [address] [id number] [address] [place] [phone] Mar, Dyspepsia R10.13 [facility] [address] [id number] [address] [place] [phone] Mar, Generalized anxiety disorder F41.1 [facility] [address] [id number] [place] [address] Mar, Encounter for dental examina tion Z01.20 [facility] [address] [id number] [address] [place] [id number] Mar, [facility] [address] [id number] [address] [place] [id number] Mar, Dental examination Z01.20 [facility] [address] [id number] [address] [place] [phone] Feb, Hypertension I10 and Tachyca rdia R00.0 [facility] [address] [id number] [place] [address] Feb, [facility] [address] [id number] [address] [place] [phone] Feb, Generalized anxiety disorder F41.1 [facility] [address] [id number] [address] [place] [id number] Feb, Dental examination Z01.20 [facility] [address] [id number] [address] [place] [phone] Jan, Generalized anxiety disorder F41.1 [facility] [address] [id number] [address] [place] [phone] December, Generalized anxiety disorder F41.1 [facility] [address] [id number] [address] [place] [address] [id number] December, Encounter for dental examina tion Z01.20 [facility] [address] [id number] [address] [place] [phone] Nov, [facility] [address] [id number] [address] [place] [id number] Nov, [facility] [address] [id number] [address] [place] [phone] Nov, Generalized anxiety disorder F41.1 [facility] [address] [id number] [address] [place] [phone] Oct, [facility] [address] [id number] [address] [place] [address] [id number] Oct, Dental examination Z01.20 [facility] [address] [id number] [address] [place] [phone] Oct, Vaginal dryness N89.8 [facility] [address] [id number] [address] [place] [phone] Oct, Pseudoseizures F44.5 [facility] [address] [facility] [id number] [address] [place] [phone] Oct, Generalized anxiety disorder F41.1 [facility] [address] [id number] [address] [place] [phone] Sep, Abnormal uterine bleeding (A UB) N93.9 ; Vaginal dryness N89.8 and Screening breast examination Z12.39 [facility] [address] [id number] [address] [place] [phone] Sep, Dental examination Z01.20 [facility] [address] [id number] [address] [place] [phone] Sep, Generalized anxiety disorder F41.1 [facility] [address] [id number] [address] [place] [phone] Sep, Unspecified ovarian cyst, ri ght side N83.201 ; Unspecified ovarian cyst, left side N83.202 ; Yeast infection of the vagina B37.3 ; Mitral valve prolapse I34.1 and Hypertension I10 [facility] [address] [facility] [address] [facility] [id number] [address] [place] [phone] Aug, Generalized anxiety disorder F41.1 [facility] [address] [facility] [facility] [id number] [address] [place] [phone] Jul, [facility] [address] [facility] [address] [facility] [id number] [address] [place] [phone] Jul, Generalized anxiety disorder F41.1 [facility] [address] [facility] [address] [facility] [id number] [address] [place] [phone] Jun, Generalized anxiety disorder F41.1 [facility] [address] [facility] [facility] [id number] [address] [place] [phone] 28 May, 2016 Encounter for immunization Z 23 [facility] [address] [facility] [address] [facility] [id number] [address] [place] [phone] 17 May, 2016 Generalized anxiety disorder F41.1 and Depressive disorder, not elsewhere classified F32.9 [facility] [address] [facility] [address] [facility] [id number] [address] [place] [phone] 28 Apr, 2016 Hypertension I10 [facility] [address] [facility] [facility] [id number] [address] [place] [id number] 22 Apr, 2016 Cervicalgia M54.2 [facility] [address] [address] [facility] [id number] [address] [place] [id number] 12 Apr, 2016 Cervicalgia M54.2 [facility] [address] [facility] [facility] [id number] [address] [place] [phone] 09 Mar, 2016 Generalized anxiety disorder F41.1 and Depressive disorder, not elsewhere classified F32.9 [facility] [address] [id number] [address] [place] [address] [id number] 14 Feb, 2016 Visit for dental examination Z01.20 [facility] [address] [facility] [facility] [id number] [address] [place] [phone] 11 Feb, 2016 Pseudoseizures F44.5 ; Migra ine without status migrainosus, not intractable, unspecified migraine type G43.909 and Essential hypertension I10 [facility] [address] [id number] [address] [place] [address] [id number] 06 Feb, 2016 Dental examination Z01.20 [facility] [address] [facility] [facility] [id number] [address] [place] [phone] 05 Feb, 2016 Generalized anxiety disorder F41.1 and Depressive disorder, not elsewhere classified F32.9 [facility] [address] [facility] [address] [facility] [id number] [address] [place] [phone] 27 Jan, 2016 Tachycardia R00.0 [place] [address] [facility] [id number] [address] [place] [phone] December, Eustachian tube dysfunction, bilateral H69.83 [facility] [address] [facility] [address] [facility] [id number] [address] [place] [phone] December, Generalized anxiety disorder F41.1 and Depressive disorder, not elsewhere classified F32.9 [facility] [address] [place] [id number] [address] [place] [phone] Nov, [place] [address] [place] [id number] [address] [place] [phone] Nov, [facility] [address] [place] [id number] [address] [place] [id number] 20 Nov, 2015 Hypertension I10 ; Onychomyc [...] cyst of left ovary N83.29 [place] [address] [place] [id number] [address] [place] [phone] 14 Nov, 2015 Sinusitis J32.9 [place] [address] [place] [id number] [address] [place] [phone] Oct, Complex cyst of left ovary N 83.29 [place] [address] [place] [id number] [address] [place] [address] Oct, Onychomycosis B35.1 [facility] [address] [place] [id number] [address] [place] [address] [id number] 17 Oct, 2015 Dental examination Z01.20 [place] [address] [address] 09 Oct, 2015 Well woman exam Z01.419 [...] R92.2 and History of colon polyps Z86.010 [place] [address] [place] [id number] [address] [place] [phone] Oct, Generalized anxiety disorder F41.1 and Depressive disorder, not elsewhere classified F32.9 [place] [address] [place] [id number] [address] [place] [phone] Sep, Hypertension I10 and Onychom ycosis B35.1 [place] [address] [phone] Sep, Skin tags, multiple acquired L91.8 [place] [address] [place] [id number] [address] [place] [phone] Aug, [place] [address] [place] [address] Aug, [facility] [address] [id number] [address] [place] [phone] Aug, [facility] [address] [id number] [address] [place] [phone] Aug, Generalized anxiety disorder F41.1 and Depressive disorder, not elsewhere classified F32.9 [facility] [address] [id number] [address] [place] [phone] Jul, Skin lesion L98.9 [facility] [address] [id number] [address] [place] [phone] Jun, Generalized anxiety disorder F41.1 and Depressive disorder, not elsewhere classified F32.9 [facility] [address] [id number] [address] [place] [phone] Jun, [facility] [address] [facility] [address] [facility] [id number] [address] [place] [phone] Jun, Generalized anxiety disorder F41.1 [facility] [address] [id number] [address] [place] [phone] May, Encounter for immunization Z 23 and Right shoulder pain M25.511 [facility] [address] [id number] [address] [place] [phone] Apr, [facility] [address] [id number] [address] [place] [phone] 14 Apr, 2015 Generalized anxiety disorder 300.02 and Depressive disorder, not elsewhere classified 311 [facility] [address] [id number] [address] [place] [address] [id number] Mar, Dental examination V72.2 [facility] [address] [id number] [address] [place] [phone] Mar, Generalized anxiety disorder 300.02 and Depressive disorder, not elsewhere classified 311 [facility] [address] [id number] [address] [place] [phone] Mar, Depression, major, recurrent , 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.35 and 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 [facility] [address] [id number] [address] [place] [phone] Feb, Generalized anxiety disorder 300.02 and Depressive disorder, not elsewhere classified 311 [facility] [address] [id number] [address] [place] [address] [id number] 07 Feb, 2015 Dental examination V72.2 [facility] [address] [id number] [address] [place] [phone] 09 Jan, 2015 Generalized anxiety disorder 300.02 and Depressive disorder, not elsewhere classified 311 [facility] [address] [facility] [facility] [id number] [address] [place] [phone] Jan, [facility] [address] [facility] [address] [facility] [id number] [address] [place] [phone] December, Generalized anxiety disorder 300.02 and Depressive disorder, not elsewhere classified 311 [facility] [address] [facility] [address] [facility] [id number] [address] [place] [phone] December, Major depressive disorder, r ecurrent, unspecified 296.30 and Panic disorder with agoraphobia 300.21 [facility] [address] [facility] [address] [facility] [id number] [address] [place] [phone] Nov, [facility] [address] [facility] [address] [facility] [id number] [address] [place] [phone] Nov, [facility] [address] [facility] [address] [facility] [id number] [address] [place] [phone] Oct, [facility] [address] [facility] [address] [facility] [id number] [address] [place] [phone] Oct, [facility] [address] [facility] [address] [facility] [id number] [address] [place] [phone] Oct, [facility] [address] [facility] [address] [facility] [id number] [address] [place] [phone] Oct, [facility] [address] [facility] [address] [facility] [id number] [address] [place] [phone] Sep, 2014 [facility] [address] [id number] [address] [place] [address], [place] [address] Sep, 2014 [facility] [address] [id number] [address] [place] [address], [place] [address] Sep, 2014 [facility] [address] [id number] [address] [place] [address], [place] [address] Sep, 2014 [facility] [address] [id number] [address] [place] [address], [place] [address] Sep, 2014 [facility] [address] [id number] [address] [place] [address], [place] [address] Sep, 2014 [facility] [address] [id number] [address] [place] [address], [place] [address] Sep, 2014 [facility] [address] [id number] [address] [place] [address], [place] [address] Sep, 2014 [facility] [address] [id number] [address] [place] [address], [place] [address] Sep, 2014 [facility] [address] [id number] [address] [place] [address], [place] [address] Sep, 2014 [facility] [address] [id number] [address] [place] [address], [place] [address] Aug, [facility] [address] [id number] [address] [place] [address], [place] [address] Aug, [facility] [address] [id number] [address] [place] [address], [place] [address] Jul, [facility] [address] [id number] [address] [place] [address], [place] [address] Jul, [facility] [address] [id number] [address] [place] [address], [place] [address] Jul, [facility] [address] [id number] [address] [place] [address], [place] [address] Jul, [facility] [address] [id number] [address] [place] [address], [place] [address] Jul, [facility] [address] [id number] [address] [place] [address], [place] [address] Jul, [facility] [address] [id number] [address] [place] [address], [place] [address] Jul, [facility] [address] [id number] [address] [place] [address], [place] [address] Jul, [facility] [address] [id number] [address] [place] [address], [place] [address] Jul, [facility] [address] [id number] [address] [place] [address], [place] [address] Jul, [facility] [address] [id number] [address] [place] [address], [place] [address] Jul, [facility] [address] [id number] [address] [place] [address], [place] [address] Jul, [facility] [address] [id number] [address] [place] [address], [place] [address] Jun, [facility] [address] [id number] [address] [place] [address], [place] [address] Jun, [facility] [address] [id number] [address] [place] [address], [place] [address] May, [facility] [address] [id number] [address] [place] [address], [place] [address] May, [facility] [address] [id number] [address] [place] [address], [place] [address] May, [facility] [address] [id number] [address] [place] [address], [place] [address] May, [facility] [address] [id number] [address] [place] [address], [place] [address] May, [facility] [address] [id number] [address] [place] [address], [place] [address] May, [facility] [address] [id number] [address] [place] [address], [place] [address] May, [facility] [address] [id number] [address] [place] [address], [place] [address] May, [facility] [address] [id number] [address] [place] [address], [place] [address] May, [facility] [address] [id number] [address] [place] [address], [place] [address] May, [facility] [address] [id number] [address] [place] [address], [place] [address] May, [facility] [address] [id number] [address] [place] [address], [place] [address] May, [facility] [address] [id number] [address] [place] [address], [place] [address] 30 Apr, 2014 [facility] [address] [id number] [address] [place] [address], [place] [address] 30 Apr, 2014 [facility] [address] [id number] [address] [place] [address], [place] [address] 29 Apr, 2014 [facility] [address] [id number] [address] [place] [address], [place] [address] 29 Apr, 2014 [facility] [address] [id number] [address] [place] [address], [place] [address] Apr, [facility] [address] [id number] [address] [place] [address], [place] [address] Apr, [facility] [address] [id number] [address] [place] [address], [place] [address] Feb, [facility] [address] [id number] [address] [place] [address], [place] [address] Feb, [facility] [address] [id number] [address] [place] [address], [place] [address] Feb, [facility] [address] [id number] [facility] [place] [address] Feb, [facility] [address] [id number] [address] [place] [address], [place] [address] Feb, [facility] [address] [id number] [facility] [place] [address] Feb, [facility] [address] [id number] [address] [place] [address], [place] [address] Jan, [facility] [address] [id number] [address] [place] [address], [place] [address] Jan, [facility] [address] [id number] [address] [place] [address], [place] [address] Jan, [facility] [address] [id number] [address] [place] [address], [place] [address] Jan, [facility] [address] [id number] [address] [place] [address], [place] [address] Jan, [facility] [address] [id number] [address] [place] [address], [place] [address] Jan, [facility] [address] [id number] [address] [place] [address], [place] [address] Jan, [facility] [address] [id number] [address] [place] [address], [place] [address] Jan, [facility] [address] [id number] [address] [place] [address], [place] [address] December, [facility] [address] [id number] [address] [place] [address], [place] [address] December, [facility] [address] [id number] [address] [place] [address], [place] [address] December, [facility] [address] [id number] [address] [place] [address], [place] [address] December, [facility] [address] [id number] [address] [place] [address], [place] [address] Nov, [facility] [address] [id number] [facility] [place] [address] Nov, [facility] [address] [id number] [address] [place] [address], [place] [address] Nov, [facility] [address] [id number] [facility] [place] [address] Nov, [facility] [address] [id number] [address] [place] [address], [place] [address] Nov, [facility] [address] [id number] [address] [place] [address], [place] [address] Nov, [facility] [address] [id number] [address] [place] [address], [place] [address] Nov, [facility] [address] [id number] [address] [place] [address], [place] [address] Nov, [facility] [address] [id number] [address] [place] [address], [place] [address] Oct, [facility] [address] [id number] [address] [place] [address], [place] [address] Oct, [facility] [address] [id number] [address] [place] [address], [place] [address] Sep, [facility] [address] [id number] [address] [place] [address], [place] [address] Sep, [facility] [address] [id number] [address] [place] [id number] Sep, [facility] [address] [id number] [address] [place] [address], [place] [address] Sep, [facility] [address] [id number] [address] [place] [address], [place] [address] Sep, [facility] [address] [id number] [address] [place] [address], [place] [address] Sep, [facility] [address] [id number] [address] [place] [address], [place] [address] 15 Aug, 2013 [facility] [address] [id number] [address] [place] [address], [place] [address] Aug, [facility] [address] [id number] [address] [place] [address], [place] [address] Aug, [facility] [address] [id number] [address] [place] [address], [place] [address] Aug, [facility] [address] [id number] [address] [place] [address], [place] [address] Jul, [facility] [address] [id number] [address] [place] [address], [place] [address] Jul, [facility] [address] [id number] [address] [place] [address], [place] [address] Jul, [facility] [address] [id number] [address] [place] [address], [place] [address] Jul, [facility] [address] [id number] [address] [place] [address], [place] [address] Jun, [facility] [address] [id number] [address] [place] [address], [place] [address] Jun, [facility] [address] [id number] [address] [place] [address], [place] [address] May, [facility] [address] [id number] [address] [place] [address], [place] [address] 24 May, 2013 [facility] [address] [id number] [address] [place] [address], [place] [address] May, [facility] [address] [id number] [address] [place] [address], [place] [address] May, [facility] [address] [id number] [address] [place] [address], [place] [address] 10 May, 2013 [facility] [address] [id number] [address] [place] [address], [place] [address] Apr, [facility] [address] [id number] [address] [place] [address], [place] [address] Apr, [facility] [address] [id number] [address] [place] [address], [place] [address] Mar, [facility] [address] [address] [id number] [address] [place] [address], [place] [address] Mar, [facility] [address] [id number] [address] [place] [address], [place] [address] Mar, [facility] [address] [id number] [address] [place] [address], [place] [address] Mar, [facility] [address] [id number] [address] [place] [address], [place] [address] Feb, [facility] [address] [id number] [address] [place] [address], [place] [address] Feb, [facility] [address] [id number] [address] [place] [address], [place] [address] Feb, [facility] [address] [id number] [address] [place] [address], [place] [address] Feb, [facility] [address] [id number] [address] [place] [address], [place] [address] Feb, [facility] [address] [id number] [address] [place] [address], [place] [address] Jan, [facility] [address] [id number] [address] [place] [address], [place] [address] Jan, [facility] [address] [id number] [address] [place] [address], [place] [address] Jan, [facility] [address] [id number] [address] [place] [address], [place] [address] Jan, [facility] [address] [id number] [address] [place] [address], [place] [address] Jan, [facility] [address] [id number] [address] [place] [address], [place] [address] December, [facility] [address] [id number] [address] [place] [address], [place] [address] December, [facility] [address] [id number] [address] [place] [address], [place] [address] Nov, [facility] [address] [id number] [address] [place] [address], [place] [address] Nov, [facility] [address] [id number] [address] [place] [address], [place] [address] Oct, [facility] [address] [id number] [address] [place] [address], [place] [address] Oct, [facility] [address] [id number] [address] [place] [address], [place] [address] 05 Oct, 2012 [facility] [address] [id number] [address] [place] [address], [place] [id number] 14 Sep, 2012 [facility] [address] [id number] [address] [place] [address], [place] [address] Aug, [facility] [address] [id number] [address] [place] [address], [place] [address] Aug, [facility] [address] [id number] [address] [place] [address], [place] [address] Aug, [facility] [address] [id number] [address] [place] [address], [place] [address] Aug, [facility] [address] [id number] [address] [place] [address], [place] [address] Jul, [facility] [address] [id number] [address] [place] [address], [place] [address] Jul, [facility] [address] [id number] [address] [place] [address], [place] [address] Jul, [facility] [address] [id number] [address] [place] [address], [place] [address] Jul, [facility] [address] [id number] [address] [place] [address], [place] [address] Jul, [facility] [address] [id number] [address] [place] [address], [place] [address] Jul, [facility] [address] [id number] [address] [place] [address], [place] [address] Jul, [facility] [address] [id number] [address] [place] [address], [place] [address] Jul, [facility] [address] [id number] [address] [place] [address], [place] [address] Jun, [facility] [address] [id number] [address] [place] [address], [place] [address] Jun, [facility] [address] [id number] [address] [place] [address], [place] [address] Jun, [facility] [address] [id number] [address] [place] [address], [place] [address] Jun, [facility] [address] [id number] [address] [place] [address], [place] [address] Jun, [facility] [address] [id number] [address] [place] [address], [place] [address] Jun, [facility] [address] [id number] [address] [place] [address], [place] [address] May, [facility] [address] [id number] [address] [place] [address], [place] [address] May, [facility] [address] [id number] [address] [place] [address], [place] [address] May, [facility] [address] [id number] [address] [place] [address], [place] [address] May, [facility] [address] [id number] [address] [place] [address], [place] [address] Apr, [facility] [address] [id number] [address] [place] [address], [place] [address] Apr, [facility] [address] [id number] [address] [place] [address], [place] [address] 08 Mar, 2012 [facility] [address] [id number] [address] [place] [address], [place] [address] 28 Jan, 2012 [facility] [address] [id number] [address] [place] [address], [place] [address] 20 Jan, 2012 [facility] [address] [id number] [address] [place] [address], [place] [address] 16 Jan, 2012 [facility] [address] [id number] [address] [place] [address], [place] [address] 15 Jan, 2012 [facility] [address] [id number] [address] [place] [address], [place] [address] 14 Jan, 2012 [facility] [address] [id number] [address] [place] [address], [place] [address] 14 Jan, 2012 [facility] [address] [id number] [address] [place] [address], [place] [address] 07 Jan, 2012 [facility] [address] [id number] [address] [place] [address], [place] [address] December, [facility] [address] [id number] [address] [place] [address], [place] [address] December, [facility] [address] [id number] [address] [place] [address], [place] [address] December, [facility] [address] [id number] [address] [place] [address], [place] [address] December, [facility] [address] [id number] [address] [place] [address], [place] [address] Nov, [facility] [address] [id number] [address] [place] [address], [place] [address] Nov, [facility] [address] [id number] [address] [place] [address], [place] [address] Oct, [facility] [address] [id number] [address] [place] [address], [place] [address] 28 Oct, 2011 [facility] [address] [id number] [address] [place] [address], [place] [address] Oct, [facility] [address] [id number] [address] [place] [address], [place] [address] Sep, [facility] [address] [id number] [address] [place] [address], [place] [address] Sep, [facility] [address] [id number] [address] [place] [address], [place] [address] Sep, [facility] [address] [id number] [address] [place] [address], [place] [address] Aug, [facility] [address] [id number] [address] [place] [address], [place] [address] Aug, [facility] [address] [id number] [address] [place] [address], [place] [address] Aug, [facility] [address] [id number] [address] [place] [address], [place] [address] Aug, [facility] [address] [id number] [address] [place] [address], [place] [address] Aug, [facility] [address] [id number] [address] [place] [address], [place] [address] Aug, [facility] [address] [id number] [address] [place] [address], [place] [address] Aug, [facility] [address] [id number] [address] [place] [address], [place] [address] Jul, [facility] [address] [id number] [address] [place] [address], [place] [address] Jul, [facility] [address] [id number] [address] [place] [address], [place] [address] Jun, [facility] [address] [id number] [address] [place] [address], [place] [address] Jun, [facility] [address] [id number] [address] [place] [address], [place] [address] 17 Jun, 2011 [facility] [address] [id number] [address] [place] [address], [place] [address] 15 Jun, 2011 [facility] [address] [id number] [address] [place] [address], [place] [address] 14 Jun, 2011 [facility] [address] [id number] [address] [place] [address], [place] [address] 14 Jun, 2011 [facility] [address] [id number] [address] [place] [address], [place] [address] Jun, [facility] [address] [id number] [address] [place] [address], [place] [address] Jun, [facility] [address] [id number] [address] [place] [address], [place] [address] Jun, [facility] [address] [id number] [address] [place] [address], [place] [address] Jun, [facility] [address] [id number] [address] [place] [address], [place] [address] May, [facility] [address] [id number] [address] [place] [address], [place] [address] May, [facility] [address] [id number] [address] [place] [address], [place] [address] May, [facility] [address] [id number] [address] [place] [id number] 24 May, 2011 [facility] [address] [id number] [address] [place] [address], [place] [address] 18 May, 2011 [facility] [address] [id number] [address] [place] [address], [place] [address] May, [facility] [address] [id number] [address] [place] [address] Feb, [facility] [address] [id number] [address] [place] [address] December, [facility] [address] [id number] [address] [place] [id number] Jul, [facility] [address] [id number] [address] [place] [address] Jul, [facility] [address] [id number] [address] [place] [address] Jul, [facility] [address] [id number] [address] [place] [id number] Jul, [facility] [address] [id number] [address] [place] [id number] Jun, [facility] [address] [id number] [address] [place] [id number] Jul, [facility] [address] [id number] [address] [place] [id number] Jul, [facility] [address] [id number] [address] [place] [id number] Jul, [facility] [address] [id number] [address] [place] [phone] Jul, [facility] [address] [id number] [address] [place] [id number] 17 Jul, 2009 [facility] [address] [id number] [address] [place] [id number] Jul, [facility] [address] [id number] [address] [place] [id number] 15 Jan, 2009 [facility] [address] [id number] [address] [place] [id number] 16 Sep, 2008 [facility] [address] [id number] [address] [place] [id number] 11 Sep, 2008 IMMUNIZATIONS No Known Immunizations SOCIAL HISTORY Never Assessed REASON FOR VISIT PLAN OF CARE VITAL SIGNS Height 66 in 2012-02-08 Weight 186.19 lbs 2012-02-08 Temperature 99 degrees Fahrenheit 2012-02-08 Heart Rate 76 bpm 2012-02-08 Respiratory Rate 20 2012-02-08 Blood pressure systolic 112 mmHg 2012-02-08 Blood pressure diastolic 80 mmHg 2012-02-08 MEDICATIONS Unknown Medications RESULTS No Results PROCEDURES Procedure Date Ordered Result Body Site SCR PAP SMER;NEW PT OBTAIN PREP&CONVY-LAB February 08, 2012 CYTOPATH C/V AUTO FLUID REDO February 08, 2012 TEST FOR BLOOD, FECES February 08, 2012 INSTRUCTIONS MEDICATIONS ADMINISTERED No Known Medications MEDICAL [...]
--- OUTSIDE RECORDS SUMMARY | 2020-01-27 10:00 | XMS REPORT ---
Author Author Silvia MERCHANT Organization [facility] Address [address] [place] [address] Care Team Providers Care 3D Technologist Name Role Phone KVNG MERCHANT Unavailable PROBLEMS Type Condition ICD9-CM Code [id number] Code Onset Dates Condition S tatus SNOMED Code Problem Hypertension I10 Active 1288485 3 Problem Generalized anxiety disorder F41.1 A ctive 688068012 Problem History of colon polyps Z86.010 Active 683390616 Problem History of diverticulitis Z87.19 Acti ve 316843120750428 Problem Family history of diabetes mellitus Z83.3 Active 415262449 Problem Excessive and frequent menstruation with irregular cycle N92.1 Active 482840799 Problem Hot flashes N95.1 Active 63682070 8 Problem Gastroesophageal reflux disease with esophagitis K 21.0 Active 274932064 Problem History of ovarian cyst Z87.42 Active 07608510 Problem Diverticulitis K57.92 Active 18481 6006 Problem Dense breast tissue R92.2 Active 310700119 Problem Perimenopausal N95.1 Active 07858 0457936727 Problem Mitral valve prolapse I34.1 Active 027678282 Problem Abnormal uterine bleeding (AUB) N93.9 Active 80734682694928 Problem Tachycardia R00.0 Active 9935499 ALLERGIES No Information ENCOUNTERS Encounter Location Date Diagnosis [facility] [address] [facility] [id number] [address] [place] [id number] 04 Jan, 2020 [facility] [address] [facility] [id number] [address] [place] [id number] December, [place] [address] [facility] [id number] [address] [place] [id number] Nov, Generalized anxiety disorder F41.1 and Bereavement Z63.4 [facility] [address] [facility] [id number] [address] [place] [id number] 16 Nov, 2019 Generalized anxiety disorder F41.1 and Bereavement Z63.4 [facility] [address] [id number] [address] [place] [id number] 13 Nov, 2019 [facility] [address] [id number] [address] [place] [id number] 08 Nov, 2019 [facility] [address] [id number] [address] [place] [id number] 06 Nov, 2019 Generalized anxiety disorder F41.1 [facility] [address] [id number] [address] [place] [id number] 30 Oct, 2019 Generalized anxiety disorder F41.1 and Bereavement Z63.4 [facility] [address] [id number] [address] [place] [id number] 16 Oct, 2019 Acute non-recurrent sinusiti s, unspecified location J01.90 [facility] [address] [id number] [address] [place] [id number] 05 Oct, 2019 Acute non-recurrent frontal sinusitis J01.10 [facility] [address] [id number] [address] [place] [id number] 27 Sep, 2019 Generalized anxiety disorder F41.1 and Bereavement Z63.4 [facility] [address] [id number] [address] [place] [id number] 17 Sep, 2019 [facility] [address] [id number] [address] [place] [id number] 11 Sep, 2019 Generalized anxiety disorder F41.1 and Bereavement Z63.4 [facility] [address] [id number] [address] [place] [id number] 15 Aug, 2019 Generalized anxiety disorder F41.1 and Bereavement Z63.4 [facility] [address] [id number] [address] [place] [id number] 13 Aug, 2019 Generalized anxiety disorder F41.1 [facility] [address] [id number] [address] [place] [id number] Aug, Viral upper respiratory trac t infection J06.9 [facility] [address] [facility] [id number] [address] [place] [id number] Jul, Generalized anxiety disorder F41.1 and Bereavement Z63.4 [facility] [address] [facility] [id number] [address] [place] [id number] Jul, Acute non-recurrent frontal sinusitis J01.10 [facility] [address] [facility] [id number] [address] [place] [id number] Jul, [facility] [address] [facility] [id number] [address] [place] [id number] Jul, Sore throat J02.9 and Uvulit is K12.2 [facility] [address] [facility] [id number] [address] [place] [id number] Jul, Generalized anxiety disorder F41.1 [facility] [address] [facility] [id number] [address] [place] [address] Jul, Caries K02.9 [facility] [address] [facility] [id number] [address] [place] [id number] Jun, Generalized anxiety disorder F41.1 [facility] [address] [facility] [id number] [address] [place] [id number] Jun, Generalized anxiety disorder F41.1 and Bereavement Z63.4 [facility] [address] [facility] [id number] [address] [place] [phone] May, Generalized anxiety disorder F41.1 [facility] [address] [facility] [id number] [address] [place] [id number] May, Dysuria R30.0 [facility] [address] [facility] [id number] [address] [place] [id number] May, Generalized anxiety disorder F41.1 and Bereavement Z63.4 [facility] [address] [facility] [id number] [address] [place] [id number] May, [facility] [address] [facility] [id number] [address] [place] [id number] Apr, Generalized anxiety disorder F41.1 and Bereavement Z63.4 [facility] [address] [facility] [id number] [address] [place] [id number] Apr, Generalized anxiety disorder F41.1 [facility] [address] [facility] [id number] [address] [place] [address] Mar, Caries K02.9 ; Dental examin ation Z01.20 ; Periodontitis K05.30 and Oral health maintenance status requiring routine preventive dental care K08.9 [facility] [address] [facility] [id number] [address] [place] [id number] Mar, Generalized anxiety disorder F41.1 [facility] [address] [facility] [id number] [address] [place] [id number] Mar, Gastrointestinal hemorrhage associated with gastroduodenitis K29.91 [facility] [address] [facility] [id number] [address] [place] [id number] Mar, Generalized anxiety disorder F41.1 and Bereavement Z63.4 [facility] [address] [facility] [id number] [address] [place] [id number] Mar, [facility] [address] [facility] [id number] [address] [place] [id number] Mar, [facility] [address] [facility] [id number] [address] [place] [id number] Mar, [facility] [address] [facility] [id number] [address] [place] [id number] Mar, Tachycardia R00.0 and Essent ial hypertension I10 [facility] [address] [facility] [id number] [address] [place] [phone] Feb, Generalized anxiety disorder F41.1 [facility] [address] [facility] [id number] [address] [place] [id number] Feb, Generalized anxiety disorder F41.1 and Bereavement Z63.4 [facility] [address] [facility] [id number] [address] [place] [id number] Feb, Generalized anxiety disorder F41.1 [facility] [address] [facility] [id number] [address] [place] [id number] Feb, Generalized anxiety disorder F41.1 and Bereavement Z63.4 [facility] [address] [facility] [id number] [address] [place] [id number] Jan, [facility] [address] [facility] [id number] [address] [place] [id number] Jan, Breast cancer screening by trenton crenshaw Z12.31 [facility] [address] [facility] [id number] [address] [place] [id number] Jan, Generalized anxiety disorder F41.1 and Bereavement Z63.4 [facility] [address] [facility] [id number] [address] [place] [address] Jan, [facility] [address] [facility] [id number] [address] [place] [id number] December, Generalized anxiety disorder F41.1 and Bereavement Z63.4 [facility] [address] [facility] [id number] [address] [place] [id number] December, Diverticulitis K57.92 ; Dysu nick R30.0 ; Other constipation K59.09 and Lower abdominal pain R10.30 [facility] [address] [facility] [id number] [address] [place] [id number] Nov, Diverticulitis K57.92 [facility] [address] [facility] [id number] [address] [place] [phone] Nov, Generalized anxiety disorder F41.1 and Bereavement Z63.4 [facility] [address] [facility] [id number] [address] [place] [id number] Nov, Generalized anxiety disorder F41.1 and Bereavement Z63.4 [facility] [address] [facility] [id number] [address] [place] [id number] Nov, Diverticulitis K57.92 [facility] [address] [facility] [id number] [address] [place] [id number] Oct, Diverticulitis K57.92 [facility] [address] [facility] [id number] [address] [place] [id number] Oct, Diverticulitis K57.92 [facility] [address] [facility] [id number] [address] [place] [id number] Oct, Generalized anxiety disorder F41.1 [facility] [address] [facility] [id number] [address] [place] [id number] Oct, Right lower quadrant abdomin al pain R10.31 and Diverticulitis K57.92 [facility] [address] [facility] [id number] [address] [place] [id number] Sep, Generalized anxiety disorder F41.1 and Bereavement Z63.4 [facility] [address] [facility] [id number] [address] [place] [id number] Aug, [facility] [address] [facility] [id number] [address] [place] [id number] Aug, Generalized anxiety disorder F41.1 and Bereavement Z63.4 [facility] [id number] [address] Aug, Caries K02.9 [facility] [address] [facility] [id number] [address] [place] [id number] Jul, Generalized anxiety disorder F41.1 and Bereavement Z63.4 [facility] [address] [facility] [id number] [address] [place] [id number] Jul, Other acute gastritis withou t hemorrhage K29.00 ; Generalized anxiety disorder F41.1 ; Tachycardia R00.0 and Essential hypertension I10 [place] [id number] [id number] [address] [place] [id number] 05 Jul, 2018 Generalized anxiety disorder F41.1 and Bereavement Z63.4 [facility] [address] [facility] [id number] [address] [place] [id number] Jun, Generalized anxiety disorder F41.1 and Bereavement Z63.4 [facility] [address] [facility] [id number] [address] [place] [id number] Jun, Generalized anxiety disorder F41.1 and Bereavement Z63.4 [facility] [address] [facility] [id number] [address] [place] [address] 02 Jun, 2018 Dental examination Z01.20 [facility] [address] [facility] [id number] [address] [place] [id number] May, Generalized anxiety disorder F41.1 and Bereavement Z63.4 [facility] [address] [facility] [id number] [address] [place] [id number] 08 May, 2018 Encounter for immunization Z 23 [facility] [address] [facility] [id number] [address] [place] [id number] 08 May, 2018 Generalized anxiety disorder F41.1 and Bereavement Z63.4 [facility] [address] [facility] [id number] [address] [place] [id number] May, [facility] [address] [facility] [id number] [address] [place] [id number] 24 Apr, 2018 Generalized anxiety disorder F41.1 and Bereavement Z63.4 [facility] [address] [facility] [id number] [address] [place] [id number] 17 Apr, 2018 [facility] [address] [facility] [id number] [address] [place] [id number] 13 Apr, 2018 Diverticulitis K57.92 [facility] [address] [facility] [id number] [address] [place] [id number] 10 Apr, 2018 Generalized anxiety disorder F41.1 and Bereavement Z63.4 [facility] [address] [id number] [address] [place] [id number] Mar, [facility] [address] [id number] [address] [place] [id number] Mar, Diverticulitis K57.92 [facility] [address] [id number] [address] [place] [id number] Mar, Generalized anxiety disorder F41.1 and Bereavement Z63.4 [facility] [address] [id number] [address] [place] [id number] Mar, Hypertension I10 [facility] [address] [id number] [address] [place] [id number] Mar, Generalized anxiety disorder F41.1 and Bereavement Z63.4 [facility] [address] [id number] [address] [place] [id number] Feb, Generalized anxiety disorder F41.1 and Bereavement Z63.4 [facility] [address] [id number] [address] [place] [id number] Feb, [facility] [address] [facility] [id number] [address] [place] [id number] Feb, Generalized anxiety disorder F41.1 and Bereavement Z63.4 [facility] [address] [facility] [id number] [address] [place] [id number] Feb, Generalized anxiety disorder F41.1 and Bereavement Z63.4 [facility] [address] [id number] [address] [place] [id number] Jan, Hypertension I10 and Acute n on-recurrent maxillary sinusitis J01.00 [facility] [address] [id number] [address] [place] [id number] December, [facility] [address] [facility] [id number] [address] [place] [id number] December, Hypertension I10 [place] [address] [id number] [address] [place] [id number] December, Generalized anxiety disorder F41.1 [facility] [address] [id number] [address] [address] 16 Oct, 2017 Encounter for dental examina tion Z01.20 [facility] [address] [id number] [address] [address] 06 Oct, 2017 Encounter for dental examina tion Z01.20 [facility] [address] [id number] [address] [address] Oct, Dental examination Z01.20 [facility] [address] [id number] [address] [place] [address] Oct, Generalized anxiety disorder F41.1 [facility] [address] [id number] [address] [place] [address] Aug, Dental examination Z01.20 [facility] [address] [id number] [address] [place] [id number] Aug, Generalized anxiety disorder F41.1 [facility] [address] [id number] [address] [place] [id number] Aug, [facility] [address] [id number] [address] [place] [address] Aug, Encounter for dental examina tion Z01.20 [facility] [address] [id number] [address] [place] [id number] Aug, Subacute maxillary sinusitis J01.00 [facility] [address] [id number] [address] [place] [address] Jul, Dental examination Z01.20 [facility] [address] [id number] [address] [place] [id number] Jul, Generalized anxiety disorder F41.1 [facility] [address] [id number] [address] [place] [id number] Jul, Diverticulitis K57.92 [facility] [address] [id number] [address] [place] [id number] 28 Jun, 2017 Encounter for immunization Z 23 [facility] [address] [id number] [address] [place] [address] 22 Jun, 2017 Dental examination Z01.20 [facility] [address] [id number] [address] [place] [id number] 14 Jun, 2017 Generalized anxiety disorder F41.1 [facility] [address] [id number] [address] [place] [address] 07 Jun, 2017 Dental examination Z01.20 [facility] [address] [id number] [address] [place] [id number] May, [facility] [address] [id number] [address] [place] [id number] May, Dental examination Z01.20 [facility] [address] [id number] [address] [place] [id number] May, Dental examination Z01.20 [facility] [address] [id number] [address] [place] [address] May, Dental examination Z01.20 [facility] [address] [id number] [address] [place] [id number] May, [facility] [address] [id number] [address] [place] [id number] May, Generalized anxiety disorder F41.1 [facility] [address] [id number] [address] [place] [id number] 05 May, 2017 Localized edema R60.0 ; Yeas t vaginitis B37.3 and Gastroesophageal reflux disease with esophagitis K21.0 [facility] [address] [id number] [address] [place] [address] [id number] Apr, Dental examination Z01.20 [facility] [address] [id number] [address] [address] Apr, Dental examination Z01.20 [facility] [address] [id number] [address] [address] 05 Apr, 2017 Dental examination Z01.20 [facility] [address] [id number] [address] [place] [id number] Mar, Dyspepsia R10.13 [facility] [address] [id number] [address] [place] [phone] Mar, Generalized anxiety disorder F41.1 [facility] [address] [id number] [address] [address] Mar, Encounter for dental examina tion Z01.20 [facility] [address] [id number] [address] [place] [address] [id number] Mar, [facility] [address] [id number] [address] [place] [address] [id number] Mar, Dental examination Z01.20 [facility] [address] [id number] [address] [place] [id number] Feb, Hypertension I10 and Tachyca rdia R00.0 [facility] [address] [id number] [address] [address] Feb, [facility] [address] [id number] [address] [place] [id number] Feb, Generalized anxiety disorder F41.1 [facility] [address] [id number] [address] [place] [id number] Feb, Dental examination Z01.20 [facility] [address] [id number] [address] [place] [id number] Jan, Generalized anxiety disorder F41.1 [facility] [address] [id number] [address] [place] [id number] December, Generalized anxiety disorder F41.1 [facility] [address] [id number] [address] [place] [id number] December, Encounter for dental examina tion Z01.20 [facility] [address] [id number] [address] [place] [id number] Nov, [facility] [address] [id number] [address] [place] [id number] Nov, [facility] [address] [id number] [address] [place] [id number] Nov, Generalized anxiety disorder F41.1 [facility] [address] [id number] [address] [place] [id number] Oct, [facility] [address] [id number] [address] [place] [address] [id number] Oct, Dental examination Z01.20 [facility] [address] [facility] [id number] [address] [place] [phone] Oct, Vaginal dryness N89.8 [facility] [address] [facility] [id number] [address] [place] [id number] Oct, Pseudoseizures F44.5 [facility] [address] [facility] [id number] [address] [place] [id number] Oct, Generalized anxiety disorder F41.1 [facility] [address] [facility] [id number] [address] [place] [id number] Sep, Abnormal uterine bleeding (A UB) N93.9 ; Vaginal dryness N89.8 and Screening breast examination Z12.39 [facility] [address] [facility] [id number] [address] [place] [address] Sep, Dental examination Z01.20 [facility] [address] [facility] [id number] [address] [place] [id number] Sep, Generalized anxiety disorder F41.1 [facility] [address] [facility] [id number] [address] [place] [address] Sep, Unspecified ovarian cyst, ri ght side N83.201 ; Unspecified ovarian cyst, left side N83.202 ; Yeast infection of the vagina B37.3 ; Mitral valve prolapse I34.1 and Hypertension I10 [facility] [address] [facility] [id number] [address] [place] [id number] 18 Aug, 2016 Generalized anxiety disorder F41.1 [facility] [address] [facility] [id number] [address] [place] [id number] 28 Jul, 2016 [facility] [address] [facility] [id number] [address] [place] [id number] Jul, Generalized anxiety disorder F41.1 [facility] [address] [place] [id number] [address] [place] [id number] Jun, Generalized anxiety disorder F41.1 [place] [address] [place] [id number] [address] [place] [id number] 28 May, 2016 Encounter for immunization Z 23 [facility] [address] [facility] [id number] [address] [place] [id number] 17 May, 2016 Generalized anxiety disorder F41.1 and Depressive disorder, not elsewhere classified F32.9 [facility] [address] [facility] [id number] [address] [place] [id number] 28 Apr, 2016 Hypertension I10 [facility] [address] [place] [id number] [address] [place] [id number] 22 Apr, 2016 Cervicalgia M54.2 [facility] [address] [facility] [id number] [address] [place] [id number] 12 Apr, 2016 Cervicalgia M54.2 [facility] [address] [place] [id number] [address] [place] [id number] 09 Mar, 2016 Generalized anxiety disorder F41.1 and Depressive disorder, not elsewhere classified F32.9 [facility] [address] [id number] [address] [place] [id number] 14 Feb, 2016 Visit for dental examination Z01.20 [facility] [address] [place] [id number] [address] [place] [id number] 11 Feb, 2016 Pseudoseizures F44.5 ; Migra ine without status migrainosus, not intractable, unspecified migraine type G43.909 and Essential hypertension I10 [facility] [address] [id number] [address] [place] [id number] 06 Feb, 2016 Dental examination Z01.20 [facility] [address] [facility] [id number] [address] [place] [id number] 05 Feb, 2016 Generalized anxiety disorder F41.1 and Depressive disorder, not elsewhere classified F32.9 [place] [address] [facility] [id number] [address] [place] [phone] Jan, Tachycardia R00.0 [place] [address] [facility] [id number] [address] [place] [id number] December, Eustachian tube dysfunction, bilateral H69.83 [facility] [address] [facility] [id number] [address] [place] [id number] December, Generalized anxiety disorder F41.1 and Depressive disorder, not elsewhere classified F32.9 [place] [address] [facility] [id number] [address] [place] [phone] Nov, [place] [address] [facility] [id number] [address] [place] [id number] Nov, [place] [address] [place] [id number] [address] [place] [id number] 20 Nov, 2015 Hypertension I10 ; Onychomyc [...] and Complex cyst of left ovary N83.29 [place] [address] [place] [id number] [address] [place] [id number] 14 Nov, 2015 Sinusitis J32.9 [facility] [address] [id number] Oct, Complex cyst of left ovary N 83.29 [place] [address] [id number] Oct, Onychomycosis B35.1 [facility] [id number] [place] [id number] Oct, Dental examination Z01.20 [place] [address] [address] 09 Oct, 2015 Well woman exam Z01.419 [...] R92.2 and History of colon polyps Z86.010 [place] [address] [address] Oct, Generalized anxiety disorder F41.1 and Depressive disorder, not elsewhere classified F32.9 [place] [address] [place] [id number] [address] [place] [address] Sep, Hypertension I10 and Onychom ycosis B35.1 [place] [address] [address] Sep, Skin tags, multiple acquired L91.8 [place] [address] [place] [id number] [address] [place] [id number] Aug, [place] [address] [address] Aug, [facility] [address] [id number] [address] [place] [address] Aug, [facility] [address] [id number] [address] [place] [address] Aug, Generalized anxiety disorder F41.1 and Depressive disorder, not elsewhere classified F32.9 [facility] [address] [id number] [address] [place] [address] Jul, Skin lesion L98.9 [facility] [address] [id number] [address] [place] [address] Jun, Generalized anxiety disorder F41.1 and Depressive disorder, not elsewhere classified F32.9 [facility] [address] [id number] [address] [place] [id number] Jun, [facility] [address] [id number] [address] [place] [address] Jun, Generalized anxiety disorder F41.1 [facility] [address] [id number] [address] [place] [address] May, Encounter for immunization Z 23 and Right shoulder pain M25.511 [facility] [address] [id number] [address] [place] [id number] 28 Apr, 2015 [facility] [address] [id number] [address] [place] [id number] 14 Apr, 2015 Generalized anxiety disorder 300.02 and Depressive disorder, not elsewhere classified 311 [facility] [address] [id number] [address] [place] [id number] Mar, Dental examination V72.2 [facility] [address] [id number] [address] [place] [address] Mar, Generalized anxiety disorder 300.02 and Depressive disorder, not elsewhere classified 311 [facility] [address] [id number] [address] [place] [address] Mar, Depression, major, recurrent , 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.35 and 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 [facility] [address] [id number] [address] [place] [address] Feb, Generalized anxiety disorder 300.02 and Depressive disorder, not elsewhere classified 311 [facility] [address] [id number] [address] [place] [id number] 07 Feb, 2015 Dental examination V72.2 [facility] [address] [id number] [address] [place] [id number] 09 Jan, 2015 Generalized anxiety disorder 300.02 and Depressive disorder, not elsewhere classified 311 [facility] [address] [id number] [address] [place] [address] Jan, [facility] [address] [facility] [id number] [address] [place] [address] December, Generalized anxiety disorder 300.02 and Depressive disorder, not elsewhere classified 311 [facility] [address] [facility] [id number] [address] [place] [address] December, Major depressive disorder, r ecurrent, unspecified 296.30 and Panic disorder with agoraphobia 300.21 [facility] [address] [facility] [id number] [address] [place] [id number] Nov, [facility] [address] [facility] [id number] [address] [place] [id number] Nov, [facility] [address] [facility] [id number] [address] [place] [id number] Oct, [facility] [address] [facility] [id number] [address] [place] [phone] Oct, [facility] [address] [facility] [id number] [address] [place] [id number] Oct, [facility] [address] [facility] [id number] [address] [place] [id number] Oct, [facility] [address] [facility] [id number] [address] [place] [id number] Sep, [facility] [address] [id number] [address] [place] [address], [place] [address] Sep, 2014 [facility] [address] [id number] [address] [place] [address], [place] [address] Sep, 2014 [facility] [address] [id number] [address] [place] [address], [place] [address] Sep, 2014 [facility] [address] [id number] [address] [place] [address], [place] [address] Sep, 2014 [facility] [address] [id number] [address] [place] [address], [place] [address] Sep, 2014 [facility] [address] [id number] [address] [place] [address], [place] [address] Sep, 2014 [facility] [address] [id number] [address] [place] [address], [place] [address] Sep, 2014 [facility] [address] [id number] [address] [place] [address], [place] [address] Sep, 2014 [facility] [address] [id number] [address] [place] [address], [place] [address] Sep, [facility] [address] [id number] [address] [place] [address], [place] [address] Aug, [facility] [address] [id number] [address] [place] [address], [place] [address] Aug, [facility] [address] [id number] [address] [place] [address], [place] [address] Jul, [facility] [address] [id number] [address] [place] [address], [place] [address] Jul, [facility] [address] [id number] [address] [place] [address], [place] [address] Jul, [facility] [address] [id number] [address] [place] [address], [place] [address] Jul, [facility] [address] [id number] [address] [place] [address], [place] [address] Jul, [facility] [address] [id number] [address] [place] [address], [place] [address] Jul, [facility] [address] [id number] [address] [place] [address], [place] [address] Jul, [facility] [address] [id number] [address] [place] [address], [place] [address] Jul, [facility] [address] [id number] [address] [place] [address], [place] [address] Jul, [facility] [address] [id number] [address] [place] [address], [place] [address] Jul, [facility] [address] [id number] [address] [place] [address], [place] [address] Jul, [facility] [address] [id number] [address] [place] [address], [place] [address] Jul, [facility] [address] [id number] [address] [place] [address], [place] [address] Jun, [facility] [address] [id number] [address] [place] [address], [place] [address] Jun, [facility] [address] [id number] [address] [place] [address], [place] [address] May, [facility] [address] [id number] [address] [place] [address], [place] [address] May, [facility] [address] [id number] [address] [place] [address], [place] [address] May, [facility] [address] [id number] [address] [place] [address], [place] [address] May, [facility] [address] [id number] [address] [place] [address], [place] [address] May, [facility] [address] [id number] [address] [place] [address], [place] [address] May, [facility] [address] [id number] [address] [place] [address], [place] [address] May, [facility] [address] [id number] [address] [place] [address], [place] [address] May, [facility] [address] [id number] [address] [place] [address], [place] [address] May, [facility] [address] [id number] [address] [place] [address], [place] [address] May, [facility] [address] [id number] [address] [place] [address], [place] [address] May, [facility] [address] [id number] [address] [place] [address], [place] [address] May, [facility] [address] [id number] [address] [place] [address], [place] [address] Apr, [facility] [address] [id number] [address] [place] [address], [place] [address] 30 Apr, 2014 [facility] [address] [id number] [address] [place] [address], [place] [address] Apr, [facility] [address] [id number] [address] [place] [address], [place] [address] Apr, [facility] [address] [id number] [address] [place] [address], [place] [address] Apr, [facility] [address] [id number] [address] [place] [address], [place] [address] Apr, [facility] [address] [id number] [address] [place] [address], [place] [address] Feb, [facility] [address] [id number] [address] [place] [address], [place] [address] Feb, [facility] [address] [id number] [address] [place] [address], [place] [address] Feb, [facility] [address] [id number] [address] [place] [address], [place] [address] Feb, [facility] [address] [id number] [facility] [place] [address] Feb, [facility] [address] [id number] [address] [place] [address], [place] [address] Feb, [facility] [address] [id number] [address] [place] [address], [place] [address] Jan, [facility] [address] [id number] [address] [place] [address], [place] [address] Jan, [facility] [address] [id number] [address] [place] [address], [place] [address] Jan, [facility] [address] [id number] [address] [place] [address], [place] [address] Jan, [facility] [address] [id number] [address] [place] [address], [place] [address] Jan, [facility] [address] [id number] [address] [place] [address], [place] [address] Jan, [facility] [address] [id number] [address] [place] [address], [place] [address] Jan, [facility] [address] [id number] [address] [place] [address], [place] [address] Jan, [facility] [address] [id number] [address] [place] [address], [place] [address] December, [facility] [address] [id number] [address] [place] [address], [place] [address] December, [facility] [address] [id number] [address] [place] [address], [place] [address] December, [facility] [address] [id number] [address] [place] [address], [place] [address] December, [facility] [address] [id number] [address] [place] [address], [place] [address] Nov, [facility] [address] [id number] [address] [place] [address], [place] [address] Nov, [facility] [address] [id number] [address] [place] [address], [place] [address] Nov, [facility] [address] [id number] [address] [place] [address], [place] [address] Nov, [facility] [address] [id number] [address] [place] [address], [place] [address] Nov, [facility] [address] [id number] [address] [place] [address], [place] [address] Nov, [facility] [address] [id number] [address] [place] [address], [place] [address] Nov, [facility] [address] [id number] [address] [place] [address], [place] [address] Nov, [facility] [address] [id number] [address] [place] [address], [place] [address] Oct, [facility] [address] [id number] [address] [place] [address], [place] [address] Oct, [facility] [address] [id number] [address] [place] [address], [place] [address] Sep, [facility] [address] [id number] [address] [place] [address], [place] [address] Sep, [facility] [address] [id number] [address] [place] [id number] Sep, [facility] [address] [id number] [address] [place] [address], [place] [address] Sep, [facility] [address] [id number] [address] [place] [address], [place] [address] Sep, [facility] [address] [id number] [address] [place] [address], [place] [address] Sep, [facility] [address] [id number] [address] [place] [address] Aug, [facility] [address] [id number] [address] [place] [address], [place] [address] Aug, [facility] [address] [id number] [address] [place] [address], [place] [address] Aug, [facility] [address] [id number] [address] [place] [address], [place] [address] Aug, [facility] [address] [id number] [address] [place] [address], [place] [address] Jul, [facility] [address] [id number] [address] [place] [address], [place] [address] Jul, [facility] [address] [id number] [address] [place] [address], [place] [address] Jul, [facility] [address] [id number] [address] [place] [address], [place] [address] Jul, [facility] [address] [id number] [address] [place] [address], [place] [address] Jun, [facility] [address] [id number] [address] [place] [address], [place] [address] Jun, [facility] [address] [id number] [address] [place] [address], [place] [address] May, [facility] [address] [id number] [address] [place] [address], [place] [address] 24 May, 2013 [facility] [address] [id number] [address] [place] [address] May, [facility] [address] [id number] [address] [place] [address], [place] [address] May, [facility] [address] [id number] [address] [place] [address], [place] [address] 10 May, 2013 [facility] [address] [id number] [address] [place] [address], [place] [address] 17 Apr, 2013 [facility] [address] [id number] [facility] [place] [address] 10 Apr, 2013 [facility] [address] [id number] [address] [place] [address], [place] [address] Mar, [facility] [address] [id number] [address] [place] [address], [place] [address] Mar, [facility] [address] [id number] [address] [place] [address], [place] [address] Mar, [facility] [address] [id number] [address] [place] [address], [place] [address] Mar, [facility] [address] [id number] [address] [place] [address], [place] [address] Feb, [facility] [address] [id number] [address] [place] [address], [place] [address] Feb, [facility] [address] [id number] [address] [place] [address], [place] [address] Feb, [facility] [address] [id number] [address] [place] [address], [place] [address] Feb, [facility] [address] [id number] [address] [place] [address], [place] [address] Feb, [facility] [address] [id number] [address] [place] [address], [place] [address] Jan, [facility] [address] [id number] [address] [place] [address], [place] [address] Jan, [facility] [address] [id number] [address] [place] [address], [place] [address] Jan, [facility] [address] [id number] [address] [place] [address], [place] [address] Jan, [facility] [address] [id number] [address] [place] [address], [place] [address] Jan, [facility] [address] [id number] [address] [place] [address], [place] [address] December, [facility] [address] [id number] [address] [place] [address], [place] [address] December, [facility] [address] [id number] [address] [place] [address], [place] [address] 17 Nov, 2012 [facility] [address] [id number] [address] [place] [address], [place] [address] Nov, [facility] [address] [id number] [address] [place] [address], [place] [address] Oct, [facility] [address] [id number] [address] [place] [address], [place] [address] Oct, [facility] [address] [id number] [address] [place] [address], [place] [address] 05 Oct, 2012 [facility] [address] [id number] [address] [place] [address], [place] [address] 14 Sep, 2012 [facility] [address] [id number] [address] [place] [address], [place] [address] Aug, [facility] [address] [id number] [address] [place] [address], [place] [address] Aug, [facility] [address] [id number] [address] [place] [address], [place] [address] Aug, [facility] [address] [id number] [address] [place] [address], [place] [address] Aug, [facility] [address] [id number] [address] [place] [address], [place] [address] Jul, [facility] [address] [id number] [address] [place] [address], [place] [address] Jul, [facility] [address] [id number] [address] [place] [address], [place] [address] Jul, [facility] [address] [id number] [address] [place] [address], [place] [address] Jul, [facility] [address] [id number] [address] [place] [address], [place] [address] 06 Jul, 2012 [facility] [address] [id number] [address] [place] [address], [place] [address] Jul, [facility] [address] [id number] [address] [place] [address], [place] [address] Jul, [facility] [address] [id number] [address] [place] [address], [place] [address] Jul, [facility] [address] [id number] [address] [place] [address], [place] [address] Jun, [facility] [address] [id number] [address] [place] [address], [place] [address] Jun, [facility] [address] [id number] [address] [place] [address], [place] [address] Jun, [facility] [address] [id number] [address] [place] [address], [place] [address] Jun, [facility] [address] [id number] [address] [place] [address], [place] [address] Jun, [facility] [address] [id number] [address] [place] [address], [place] [address] Jun, [facility] [address] [id number] [address] [place] [address], [place] [address] May, [facility] [address] [id number] [address] [place] [address], [place] [address] May, [facility] [address] [id number] [address] [place] [id number] May, [facility] [address] [id number] [address] [place] [address], [place] [address] May, [facility] [address] [id number] [address] [place] [address], [place] [address] Apr, [facility] [address] [id number] [address] [place] [id number] 06 Apr, 2012 [facility] [address] [id number] [address] [place] [address], [place] [address] 08 Mar, 2012 [facility] [address] [id number] [address] [place] [address], [place] [address] 28 Jan, 2012 [facility] [address] [id number] [address] [place] [address], [place] [address] 20 Jan, 2012 [facility] [address] [id number] [address] [place] [address], [place] [address] 16 Jan, 2012 [facility] [address] [id number] [address] [place] [address], [place] [address] 15 Jan, 2012 [facility] [address] [id number] [address] [place] [address], [place] [address] 14 Jan, 2012 [facility] [address] [id number] [address] [place] [address], [place] [address] 14 Jan, 2012 [facility] [address] [id number] [address] [place] [address], [place] [address] 07 Jan, 2012 [facility] [address] [id number] [address] [place] [address], [place] [address] December, [facility] [address] [id number] [address] [place] [address], [place] [address] December, [facility] [address] [id number] [address] [place] [address], [place] [address] December, [facility] [address] [id number] [address] [place] [address], [place] [address] December, [facility] [address] [id number] [address] [place] [address], [place] [address] Nov, [facility] [address] [id number] [address] [place] [address], [place] [address] Nov, [facility] [address] [id number] [address] [place] [address], [place] [address] Oct, [facility] [address] [id number] [address] [place] [address], [place] [address] Oct, [facility] [address] [id number] [address] [place] [address], [place] [address] Oct, [facility] [address] [id number] [address] [place] [address], [place] [address] Sep, [facility] [address] [id number] [address] [place] [address], [place] [address] Sep, [facility] [address] [id number] [address] [place] [address], [place] [address] Sep, [facility] [address] [id number] [address] [place] [address], [place] [address] Aug, [facility] [address] [id number] [address] [place] [address], [place] [address] Aug, [facility] [address] [id number] [address] [place] [address], [place] [address] Aug, [facility] [address] [id number] [address] [place] [address], [place] [address] Aug, [facility] [address] [id number] [address] [place] [address], [place] [address] Aug, [facility] [address] [id number] [address] [place] [address], [place] [address] Aug, [facility] [address] [id number] [address] [place] [address], [place] [address] Aug, [facility] [address] [id number] [address] [place] [address], [place] [address] Jul, [facility] [address] [id number] [address] [place] [address], [place] [address] Jul, [facility] [address] [id number] [address] [place] [address], [place] [address] Jun, [facility] [address] [id number] [address] [place] [address], [place] [address] Jun, [facility] [address] [id number] [address] [place] [address], [place] [address] 17 Jun, 2011 [facility] [address] [id number] [address] [place] [address], [place] [address] 15 Jun, 2011 [facility] [address] [id number] [address] [place] [address], [place] [address] 14 Jun, 2011 [facility] [address] [id number] [address] [place] [address], [place] [address] 14 Jun, 2011 [facility] [address] [id number] [address] [place] [address], [place] [address] Jun, [facility] [address] [id number] [address] [place] [address], [place] [address] Jun, [facility] [address] [id number] [address] [place] [address], [place] [address] Jun, [facility] [address] [id number] [address] [place] [address], [place] [address] Jun, [facility] [address] [id number] [address] [place] [address], [place] [address] May, [facility] [address] [id number] [address] [place] [address], [place] [address] May, [facility] [address] [id number] [address] [place] [address], [place] [address] May, [facility] [address] [id number] [address] [place] [address], [place] [address] 24 May, 2011 [facility] [address] [id number] [address] [place] [address], [place] [address] 18 May, 2011 [facility] [address] [id number] [address] [place] [address], [place] [address] May, [facility] [address] [id number] [address] [place] [address], [place] [address] Feb, [facility] [address] [id number] [address] [place] [address], [place] [address] December, [facility] [address] [id number] [address] [place] [id number] Jul, [facility] [address] [id number] [address] [place] [id number] Jul, [facility] [address] [id number] [address] [place] [id number] Jul, [facility] [address] [id number] [address] [place] [id number] Jul, [facility] [address] [id number] [address] [place] [id number] Jun, [facility] [address] [id number] [address] [place] [id number] Jul, [facility] [address] [id number] [address] [place] [id number] Jul, [facility] [address] [id number] [address] [place] [id number] Jul, [facility] [address] [id number] [address] [place] [id number] Jul, [facility] [address] [id number] [address] [place] [id number] Jul, [facility] [address] [id number] [address] [place] [id number] Jul, [facility] [address] [id number] [address] [place] [id number] 15 Jan, 2009 [facility] [address] [id number] [address] [place] [id number] 16 Sep, 2008 [facility] [address] [id number] [address] [place] [id number] 11 Sep, 2008 IMMUNIZATIONS No Known Immunizations SOCIAL HISTORY Never Assessed REASON FOR VISIT PLAN OF CARE VITAL SIGNS Height 66 in 2012-02-06 Weight 191.4 lbs 2012-02-06 Temperature 99.7 degrees Fahrenheit 2012-02-06 Heart Rate 72 bpm 2012-02-06 Respiratory Rate 18 2012-02-06 Blood pressure systolic 110 mmHg 2012-02-06 Blood pressure diastolic 82 mmHg 2012-02-06 MEDICATIONS Unknown Medications RESULTS No Results PROCEDURES Procedure Date Ordered Result Body Site HEPATIC FUNCTION PANEL February 06, 2012 VENIPUNCT, ROUTINE* February 06, 2012 INSTRUCTIONS MEDICATIONS ADMINISTERED No Known Medications [...]
--- OUTSIDE RECORDS SUMMARY | 2020-01-27 10:01 | XMS REPORT ---
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 Name Role Phone LETTY WILKINS Unavailable PROBLEMS Type Condition ICD9-CM Code LFK39-XD Code Onset Dates Condition S tatus SNOMED Code Problem Hypertension I10 Active 9176944 3 Problem Generalized anxiety disorder F41.1 A ctive 942419124 Problem History of colon polyps Z86.010 Active 762370262 Problem History of diverticulitis Z87.19 Acti ve 482120328911725 Problem Family history of diabetes mellitus Z83.3 Active 161722478 Problem Excessive and frequent menstruation with irregular cycle N92.1 Active 318502739 Problem Hot flashes N95.1 Active 29403286 8 Problem Gastroesophageal reflux disease with esophagitis K 21.0 Active 101018971 Problem History of ovarian cyst Z87.42 Active 70451448 Problem Diverticulitis K57.92 Active 41018 6006 Problem Dense breast tissue R92.2 Active 642818010 Problem Perimenopausal N95.1 Active 05798 0321348817 Problem Mitral valve prolapse I34.1 Active 064259788 Problem Abnormal uterine bleeding (AUB) N93.9 Active 12105548168383 Problem Tachycardia R00.0 Active 9539435 ALLERGIES No Information ENCOUNTERS Encounter Location Date Diagnosis [facility] [address] [facility] [id number] [address] [place] [phone] Jan, [facility] [address] [facility] [id number] [address] [place] [phone] December, [facility] [address] [facility] [id number] [address] [place] [phone] Nov, Generalized anxiety disorder F41.1 and Bereavement Z63.4 [place] [address] [facility] [id number] [address] [place] [phone] 16 Nov, 2019 Generalized anxiety disorder F41.1 and Bereavement Z63.4 [facility] [address] [id number] [address] [place] [phone] 13 Nov, 2019 [facility] [address] [id number] [address] [place] [address] [id number] 08 Nov, 2019 [facility] [address] [id number] [address] [place] [id number] 06 Nov, 2019 Generalized anxiety disorder F41.1 [facility] [address] [id number] [address] [place] [phone] 30 Oct, 2019 Generalized anxiety disorder F41.1 and Bereavement Z63.4 [facility] [address] [id number] [address] [place] [phone] 16 Oct, 2019 Acute non-recurrent sinusiti s, unspecified location J01.90 [facility] [address] [id number] [address] [place] [id number] 05 Oct, 2019 Acute non-recurrent frontal sinusitis J01.10 [facility] [address] [id number] [address] [place] [phone] 27 Sep, 2019 Generalized anxiety disorder F41.1 and Bereavement Z63.4 [facility] [address] [id number] [address] [place] [phone] 17 Sep, 2019 [facility] [address] [id number] [address] [place] [address] Sep, Generalized anxiety disorder F41.1 and Bereavement Z63.4 [facility] [address] [id number] [address] [place] [id number] 15 Aug, 2019 Generalized anxiety disorder F41.1 and Bereavement Z63.4 [facility] [address] [id number] [address] [place] [phone] 13 Aug, 2019 Generalized anxiety disorder F41.1 [facility] [address] [id number] [address] [place] [phone] Aug, Viral upper respiratory trac t infection J06.9 [facility] [address] [facility] [id number] [address] [place] [phone] Jul, Generalized anxiety disorder F41.1 and Bereavement Z63.4 [facility] [address] [facility] [id number] [address] [place] [phone] Jul, Acute non-recurrent frontal sinusitis J01.10 [facility] [address] [facility] [id number] [address] [place] [id number] Jul, [facility] [address] [facility] [id number] [address] [place] [address] Jul, Sore throat J02.9 and Uvulit is K12.2 [facility] [address] [facility] [id number] [address] [place] [phone] Jul, Generalized anxiety disorder F41.1 [facility] [address] [facility] [id number] [place] [address] Jul, Caries K02.9 [facility] [address] [facility] [id number] [address] [place] [phone] Jun, Generalized anxiety disorder F41.1 [facility] [address] [facility] [id number] [address] [place] [id number] Jun, Generalized anxiety disorder F41.1 and Bereavement Z63.4 [facility] [address] [facility] [id number] [address] [place] [phone] May, Generalized anxiety disorder F41.1 [facility] [address] [facility] [id number] [address] [place] [phone] May, Dysuria R30.0 [facility] [address] [facility] [id number] [address] [place] [phone] 09 May, 2019 Generalized anxiety disorder F41.1 and Bereavement Z63.4 [facility] [address] [facility] [id number] [address] [place] [phone] May, [facility] [address] [facility] [id number] [address] [place] [address] Apr, Generalized anxiety disorder F41.1 and Bereavement Z63.4 [facility] [address] [facility] [id number] [address] [place] [address] Apr, Generalized anxiety disorder F41.1 [facility] [address] [facility] [id number] [address] [address] Mar, Caries K02.9 ; Dental examin ation Z01.20 ; Periodontitis K05.30 and Oral health maintenance status requiring routine preventive dental care K08.9 [facility] [address] [facility] [id number] [address] [place] [id number] Mar, Generalized anxiety disorder F41.1 [facility] [address] [facility] [id number] [address] [place] [phone] Mar, Gastrointestinal hemorrhage associated with gastroduodenitis K29.91 [facility] [address] [facility] [id number] [address] [place] [phone] Mar, Generalized anxiety disorder F41.1 and Bereavement Z63.4 [facility] [address] [facility] [id number] [address] [place] [phone] Mar, [facility] [address] [facility] [id number] [address] [place] [phone] Mar, [facility] [address] [facility] [id number] [address] [place] [address] Mar, [facility] [address] [facility] [id number] [address] [place] [phone] Mar, Tachycardia R00.0 and Essent ial hypertension I10 [facility] [address] [facility] [id number] [address] [place] [phone] Feb, Generalized anxiety disorder F41.1 [facility] [address] [id number] [address] [place] [phone] Feb, Generalized anxiety disorder F41.1 and Bereavement Z63.4 [facility] [address] [id number] [address] [place] [address] Feb, Generalized anxiety disorder F41.1 [facility] [address] [facility] [id number] [address] [place] [phone] Feb, Generalized anxiety disorder F41.1 and Bereavement Z63.4 [facility] [address] [id number] [address] [place] [phone] Jan, [facility] [address] [facility] [id number] [address] [place] [id number] Jan, Breast cancer screening by trenton crenshaw Z12.31 [facility] [address] [facility] [id number] [address] [place] [phone] Jan, Generalized anxiety disorder F41.1 and Bereavement Z63.4 [facility] [address] [facility] [id number] [address] [place] [phone] Jan, [facility] [address] [facility] [id number] [address] [place] [phone] December, Generalized anxiety disorder F41.1 and Bereavement Z63.4 [facility] [address] [facility] [id number] [address] [place] [address] December, Diverticulitis K57.92 ; Dysu nick R30.0 ; Other constipation K59.09 and Lower abdominal pain R10.30 [facility] [address] [facility] [id number] [address] [place] [address] Nov, Diverticulitis K57.92 [facility] [address] [facility] [id number] [address] [place] [phone] Nov, Generalized anxiety disorder F41.1 and Bereavement Z63.4 [facility] [address] [facility] [id number] [address] [place] [address] Nov, Generalized anxiety disorder F41.1 and Bereavement Z63.4 [facility] [address] [facility] [id number] [address] [place] [address] Nov, Diverticulitis K57.92 [facility] [address] [facility] [id number] [address] [place] [phone] Oct, Diverticulitis K57.92 [facility] [address] [facility] [id number] [address] [place] [address] Oct, Diverticulitis K57.92 [facility] [address] [place] [id number] [address] [place] [id number] Oct, Generalized anxiety disorder F41.1 [facility] [address] [facility] [id number] [address] [place] [id number] Oct, Right lower quadrant abdomin al pain R10.31 and Diverticulitis K57.92 [facility] [address] [place] [id number] [address] [place] [phone] Sep, Generalized anxiety disorder F41.1 and Bereavement Z63.4 [place] [address] [id number] [place] [address] Aug, [facility] [address] [facility] [id number] [address] [place] [phone] Aug, Generalized anxiety disorder F41.1 and Bereavement Z63.4 [facility] [id number] [address] Aug, Caries K02.9 [facility] [address] [facility] [id number] [address] [place] [phone] Jul, Generalized anxiety disorder F41.1 and Bereavement Z63.4 [place] [address] [facility] [id number] [address] [place] [address] Jul, Other acute gastritis withou t hemorrhage K29.00 ; Generalized anxiety disorder F41.1 ; Tachycardia R00.0 and Essential hypertension I10 [facility] [address] [facility] [id number] [address] [place] [phone] 05 Jul, 2018 Generalized anxiety disorder F41.1 and Bereavement Z63.4 [facility] [address] [facility] [id number] [address] [place] [phone] Jun, Generalized anxiety disorder F41.1 and Bereavement Z63.4 [facility] [address] [facility] [id number] [address] [place] [phone] Jun, Generalized anxiety disorder F41.1 and Bereavement Z63.4 [facility] [address] [id number] [place] [address] Jun, Dental examination Z01.20 [facility] [address] [facility] [id number] [address] [place] [phone] May, Generalized anxiety disorder F41.1 and Bereavement Z63.4 [facility] [address] [facility] [id number] [address] [place] [phone] May, Encounter for immunization Z 23 [facility] [address] [facility] [id number] [address] [place] [phone] 08 May, 2018 Generalized anxiety disorder F41.1 and Bereavement Z63.4 [facility] [address] [facility] [id number] [address] [place] [phone] May, [facility] [address] [facility] [id number] [address] [place] [phone] 24 Apr, 2018 Generalized anxiety disorder F41.1 and Bereavement Z63.4 [facility] [address] [facility] [id number] [address] [place] [phone] 17 Apr, 2018 [facility] [address] [facility] [id number] [address] [place] [id number] 13 Apr, 2018 Diverticulitis K57.92 [facility] [address] [facility] [id number] [address] [place] [id number] 10 Apr, 2018 Generalized anxiety disorder F41.1 and Bereavement Z63.4 [facility] [address] [id number] [address] [place] [phone] Mar, [facility] [address] [id number] [address] [place] [address] Mar, Diverticulitis K57.92 [facility] [address] [id number] [address] [place] [address] Mar, Generalized anxiety disorder F41.1 and Bereavement Z63.4 [facility] [address] [id number] [address] [place] [id number] Mar, Hypertension I10 [facility] [address] [id number] [address] [place] [phone] Mar, Generalized anxiety disorder F41.1 and Bereavement Z63.4 [facility] [address] [id number] [address] [place] [phone] Feb, Generalized anxiety disorder F41.1 and Bereavement Z63.4 [facility] [address] [id number] [address] [place] [phone] Feb, [facility] [address] [facility] [id number] [address] [place] [address] Feb, Generalized anxiety disorder F41.1 and Bereavement Z63.4 [facility] [address] [facility] [id number] [address] [place] [phone] Feb, Generalized anxiety disorder F41.1 and Bereavement Z63.4 [facility] [address] [id number] [address] [place] [id number] Jan, Hypertension I10 and Acute n on-recurrent maxillary sinusitis J01.00 [facility] [address] [id number] [address] [place] [id number] December, [facility] [address] [id number] [address] [place] [phone] December, Hypertension I10 [facility] [address] [id number] [address] [place] [phone] December, Generalized anxiety disorder F41.1 [facility] [address] [id number] [place] [address] 16 Oct, 2017 Encounter for dental examina tion Z01.20 [facility] [address] [id number] [address] [place] [address] 06 Oct, 2017 Encounter for dental examina tion Z01.20 [facility] [address] [id number] [address] [place] [address] 02 Oct, 2017 Dental examination Z01.20 [facility] [address] [id number] [address] [place] [phone] Oct, Generalized anxiety disorder F41.1 [facility] [address] [id number] [address] [place] [address] Aug, Dental examination Z01.20 [facility] [address] [id number] [address] [place] [phone] Aug, Generalized anxiety disorder F41.1 [facility] [address] [id number] [address] [place] [phone] Aug, [facility] [address] [id number] [address] [place] [address] Aug, Encounter for dental examina tion Z01.20 [facility] [address] [id number] [address] [place] [phone] Aug, Subacute maxillary sinusitis J01.00 [facility] [address] [id number] [address] [place] [address] Jul, Dental examination Z01.20 [facility] [address] [id number] [address] [place] [phone] Jul, Generalized anxiety disorder F41.1 [facility] [address] [id number] [address] [place] [phone] Jul, Diverticulitis K57.92 [facility] [address] [id number] [address] [place] [address] Jun, Encounter for immunization Z 23 [facility] [address] [id number] [address] [place] [address] 22 Jun, 2017 Dental examination Z01.20 [facility] [address] [id number] [address] [place] [phone] 14 Jun, 2017 Generalized anxiety disorder F41.1 [facility] [address] [id number] [address] [place] [address] 07 Jun, 2017 Dental examination Z01.20 [facility] [address] [id number] [address] [place] [id number] May, [facility] [address] [id number] [address] [place] [id number] May, Dental examination Z01.20 [facility] [address] [id number] [address] [place] [id number] May, Dental examination Z01.20 [facility] [address] [id number] [address] [place] [address] May, Dental examination Z01.20 [facility] [address] [id number] [address] [place] [phone] May, [facility] [address] [id number] [address] [place] [phone] May, Generalized anxiety disorder F41.1 [facility] [address] [id number] [address] [place] [address] May, Localized edema R60.0 ; Yeas t vaginitis B37.3 and Gastroesophageal reflux disease with esophagitis K21.0 [facility] [address] [id number] [address] [place] [id number] Apr, Dental examination Z01.20 [facility] [address] [id number] [place] [address] Apr, Dental examination Z01.20 [facility] [address] [id number] [address] [address] 05 Apr, 2017 Dental examination Z01.20 [facility] [address] [id number] [address] [place] [phone] Mar, Dyspepsia R10.13 [facility] [address] [id number] [address] [place] [address] Mar, Generalized anxiety disorder F41.1 [facility] [address] [id number] [place] [address] Mar, Encounter for dental examina tion Z01.20 [facility] [address] [id number] [address] [place] [id number] Mar, [facility] [address] [id number] [address] [place] [id number] Mar, Dental examination Z01.20 [facility] [address] [id number] [address] [place] [phone] Feb, Hypertension I10 and Tachyca rdia R00.0 [facility] [address] [id number] [place] [address] Feb, [facility] [address] [id number] [address] [place] [phone] Feb, Generalized anxiety disorder F41.1 [facility] [address] [id number] [address] [place] [phone] Feb, Dental examination Z01.20 [facility] [address] [id number] [address] [place] [phone] Jan, Generalized anxiety disorder F41.1 [facility] [address] [id number] [address] [place] [phone] December, Generalized anxiety disorder F41.1 [facility] [address] [id number] [address] [place] [phone] December, Encounter for dental examina tion Z01.20 [facility] [address] [id number] [address] [place] [phone] Nov, [facility] [address] [id number] [address] [place] [phone] Nov, [facility] [address] [id number] [address] [place] [phone] Nov, Generalized anxiety disorder F41.1 [facility] [address] [id number] [address] [place] [phone] Oct, [facility] [address] [id number] [address] [place] [phone] Oct, Dental examination Z01.20 [facility] [address] [id number] [address] [place] [phone] Oct, Vaginal dryness N89.8 [facility] [address] [id number] [address] [place] [phone] Oct, Pseudoseizures F44.5 [facility] [address] [facility] [id number] [address] [place] [phone] Oct, Generalized anxiety disorder F41.1 [facility] [address] [id number] [address] [place] [phone] Sep, Abnormal uterine bleeding (A UB) N93.9 ; Vaginal dryness N89.8 and Screening breast examination Z12.39 [facility] [address] [id number] [address] [place] [phone] Sep, Dental examination Z01.20 [facility] [address] [id number] [address] [place] [phone] Sep, Generalized anxiety disorder F41.1 [facility] [address] [id number] [address] [place] [phone] Sep, Unspecified ovarian cyst, ri ght side N83.201 ; Unspecified ovarian cyst, left side N83.202 ; Yeast infection of the vagina B37.3 ; Mitral valve prolapse I34.1 and Hypertension I10 [facility] [address] [facility] [id number] [address] [place] [id number] Aug, Generalized anxiety disorder F41.1 [facility] [address] [facility] [id number] [address] [place] [id number] Jul, [facility] [address] [facility] [id number] [address] [place] [id number] Jul, Generalized anxiety disorder F41.1 [facility] [address] [facility] [id number] [address] [place] [id number] Jun, Generalized anxiety disorder F41.1 [facility] [address] [facility] [id number] [address] [place] [id number] 28 May, 2016 Encounter for immunization Z 23 [facility] [address] [facility] [id number] [address] [place] [id number] 17 May, 2016 Generalized anxiety disorder F41.1 and Depressive disorder, not elsewhere classified F32.9 [facility] [address] [facility] [id number] [address] [place] [phone] 28 Apr, 2016 Hypertension I10 [facility] [address] [facility] [id number] [address] [place] [id number] 22 Apr, 2016 Cervicalgia M54.2 [facility] [address] [facility] [id number] [address] [place] [id number] 12 Apr, 2016 Cervicalgia M54.2 [facility] [address] [facility] [id number] [address] [place] [id number] 09 Mar, 2016 Generalized anxiety disorder F41.1 and Depressive disorder, not elsewhere classified F32.9 [facility] [address] [id number] [address] [place] [address] [id number] 14 Feb, 2016 Visit for dental examination Z01.20 [facility] [address] [facility] [id number] [address] [place] [id number] 11 Feb, 2016 Pseudoseizures F44.5 ; Migra ine without status migrainosus, not intractable, unspecified migraine type G43.909 and Essential hypertension I10 [facility] [address] [id number] [address] [place] [address] [id number] 06 Feb, 2016 Dental examination Z01.20 [facility] [address] [facility] [id number] [address] [place] [id number] 05 Feb, 2016 Generalized anxiety disorder F41.1 and Depressive disorder, not elsewhere classified F32.9 [facility] [address] [facility] [id number] [address] [place] [id number] 27 Jan, 2016 Tachycardia R00.0 [place] [address] [facility] [id number] [address] [place] [address] December, Eustachian tube dysfunction, bilateral H69.83 [facility] [address] [facility] [id number] [address] [place] [phone] December, Generalized anxiety disorder F41.1 and Depressive disorder, not elsewhere classified F32.9 [facility] [address] [place] [id number] [address] [place] [id number] Nov, [place] [address] [place] [id number] [address] [place] [id number] Nov, [facility] [address] [place] [id number] [address] [place] [id number] 20 Nov, 2015 Hypertension I10 ; Onychomyc [...] cyst of left ovary N83.29 [place] [id number] [place] [id number] [address] [place] [id number] 14 Nov, 2015 Sinusitis J32.9 [place] [address] [place] [id number] [address] [place] [address] Oct, Complex cyst of left ovary N 83.29 [place] [address] [place] [id number] [address] [place] [phone] Oct, Onychomycosis B35.1 [facility] [address] [place] [id number] [address] [place] [id number] 17 Oct, 2015 Dental examination Z01.20 [place] [address] [phone] 09 Oct, 2015 Well woman exam Z01.419 [...] R92.2 and History of colon polyps Z86.010 [place] [address] [place] [id number] [address] [place] [address] Oct, Generalized anxiety disorder F41.1 and Depressive disorder, not elsewhere classified F32.9 [place] [address] [place] [id number] [address] [place] [id number] Sep, Hypertension I10 and Onychom ycosis B35.1 [place] [address] [address] Sep, Skin tags, multiple acquired L91.8 [place] [address] [place] [id number] [address] [place] [phone] Aug, [place] [address] [place] [address] Aug, [facility] [address] [id number] [address] [place] [phone] Aug, [facility] [address] [id number] [address] [place] [id number] Aug, Generalized anxiety disorder F41.1 and Depressive disorder, not elsewhere classified F32.9 [facility] [address] [id number] [address] [place] [phone] Jul, Skin lesion L98.9 [facility] [address] [id number] [address] [place] [address] Jun, Generalized anxiety disorder F41.1 and Depressive disorder, not elsewhere classified F32.9 [facility] [address] [id number] [address] [place] [phone] Jun, [facility] [address] [facility] [id number] [address] [place] [id number] Jun, Generalized anxiety disorder F41.1 [facility] [address] [id number] [address] [place] [id number] May, Encounter for immunization Z 23 and Right shoulder pain M25.511 [facility] [address] [id number] [address] [place] [id number] Apr, [facility] [address] [id number] [address] [place] [id number] 14 Apr, 2015 Generalized anxiety disorder 300.02 and Depressive disorder, not elsewhere classified 311 [facility] [address] [id number] [address] [place] [address] [id number] Mar, Dental examination V72.2 [facility] [address] [id number] [address] [place] [id number] Mar, Generalized anxiety disorder 300.02 and Depressive disorder, not elsewhere classified 311 [facility] [address] [id number] [address] [place] [id number] Mar, Depression, major, recurrent , 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.35 and 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 [facility] [address] [id number] [address] [place] [id number] Feb, Generalized anxiety disorder 300.02 and Depressive disorder, not elsewhere classified 311 [facility] [address] [id number] [address] [place] [address] [id number] 07 Feb, 2015 Dental examination V72.2 [facility] [address] [id number] [address] [place] [id number] 09 Jan, 2015 Generalized anxiety disorder 300.02 and Depressive disorder, not elsewhere classified 311 [facility] [address] [facility] [id number] [address] [place] [id number] Jan, [facility] [address] [facility] [id number] [address] [place] [id number] December, Generalized anxiety disorder 300.02 and Depressive disorder, not elsewhere classified 311 [facility] [address] [facility] [id number] [address] [place] [id number] December, Major depressive disorder, r ecurrent, unspecified 296.30 and Panic disorder with agoraphobia 300.21 [facility] [address] [facility] [id number] [address] [place] [phone] Nov, [facility] [address] [facility] [id number] [address] [place] [id number] Nov, [facility] [address] [facility] [id number] [address] [place] [phone] Oct, [facility] [address] [facility] [id number] [address] [place] [phone] Oct, [facility] [address] [facility] [id number] [address] [place] [id number] Oct, [facility] [address] [facility] [id number] [address] [place] [phone] Oct, [facility] [address] [facility] [id number] [address] [place] [id number] Sep, 2014 [facility] [address] [id number] [address] [place] [address], [place] [address] Sep, 2014 [facility] [address] [id number] [address] [place] [address], [place] [address] Sep, 2014 [facility] [address] [id number] [address] [place] [address], [place] [address] Sep, 2014 [facility] [address] [id number] [address] [place] [address], [place] [address] Sep, 2014 [facility] [address] [id number] [address] [place] [address], [place] [address] Sep, 2014 [facility] [address] [id number] [address] [place] [address], [place] [address] Sep, 2014 [facility] [address] [id number] [address] [place] [address], [place] [address] Sep, 2014 [facility] [address] [id number] [address] [place] [address], [place] [address] Sep, 2014 [facility] [address] [id number] [address] [place] [address], [place] [address] Sep, 2014 [facility] [address] [id number] [address] [place] [address], [place] [address] Aug, [facility] [address] [id number] [address] [place] [address], [place] [address] Aug, [facility] [address] [id number] [address] [place] [address], [place] [address] Jul, [facility] [address] [id number] [address] [place] [address], [place] [address] Jul, [facility] [address] [id number] [address] [place] [address], [place] [address] Jul, [facility] [address] [id number] [address] [place] [address], [place] [address] Jul, [facility] [address] [id number] [address] [place] [address], [place] [address] Jul, [facility] [address] [id number] [address] [place] [address], [place] [address] Jul, [facility] [address] [id number] [address] [place] [address], [place] [address] Jul, [facility] [address] [id number] [address] [place] [address], [place] [address] Jul, [facility] [address] [id number] [address] [place] [address], [place] [address] Jul, [facility] [address] [id number] [address] [place] [address], [place] [address] Jul, [facility] [address] [id number] [address] [place] [address], [place] [address] Jul, [facility] [address] [id number] [address] [place] [address], [place] [address] Jul, [facility] [address] [id number] [address] [place] [address], [place] [address] Jun, [facility] [address] [id number] [address] [place] [address], [place] [address] Jun, [facility] [address] [id number] [address] [place] [address], [place] [address] May, [facility] [address] [id number] [address] [place] [address], [place] [address] May, [facility] [address] [id number] [address] [place] [address], [place] [address] May, [facility] [address] [id number] [address] [place] [address], [place] [address] May, [facility] [address] [id number] [address] [place] [address], [place] [address] May, [facility] [address] [id number] [address] [place] [address], [place] [address] May, [facility] [address] [id number] [address] [place] [address], [place] [address] May, [facility] [address] [id number] [address] [place] [address], [place] [address] May, [facility] [address] [id number] [address] [place] [address], [place] [address] May, [facility] [address] [id number] [address] [place] [address], [place] [address] May, [facility] [address] [id number] [address] [place] [address], [place] [address] May, [facility] [address] [id number] [address] [place] [address], [place] [address] May, [facility] [address] [id number] [address] [place] [address], [place] [address] 30 Apr, 2014 [facility] [address] [id number] [address] [place] [address], [place] [address] 30 Apr, 2014 [facility] [address] [id number] [address] [place] [address], [place] [address] 29 Apr, 2014 [facility] [address] [id number] [address] [place] [address], [place] [address] 29 Apr, 2014 [facility] [address] [id number] [address] [place] [address], [place] [address] Apr, [facility] [address] [id number] [address] [place] [address], [place] [address] Apr, [facility] [address] [id number] [address] [place] [address], [place] [address] Feb, [facility] [address] [id number] [address] [place] [address], [place] [address] Feb, [facility] [address] [id number] [address] [place] [address], [place] [address] Feb, [facility] [address] [id number] [facility] [place] [address] Feb, [facility] [address] [id number] [address] [place] [address], [place] [address] Feb, [facility] [address] [id number] [facility] [place] [address] Feb, [facility] [address] [id number] [address] [place] [address], [place] [address] Jan, [facility] [address] [id number] [address] [place] [address], [place] [address] Jan, [facility] [address] [id number] [address] [place] [address], [place] [address] Jan, [facility] [address] [id number] [address] [place] [address], [place] [address] Jan, [facility] [address] [id number] [address] [place] [address], [place] [address] Jan, [facility] [address] [id number] [address] [place] [address], [place] [address] Jan, [facility] [address] [id number] [address] [place] [address], [place] [address] Jan, [facility] [address] [id number] [address] [place] [address], [place] [address] Jan, [facility] [address] [id number] [address] [place] [address], [place] [address] December, [facility] [address] [id number] [address] [place] [address], [place] [address] December, [facility] [address] [id number] [address] [place] [address], [place] [address] December, [facility] [address] [id number] [address] [place] [address], [place] [address] December, [facility] [address] [id number] [address] [place] [address], [place] [address] Nov, [facility] [address] [id number] [facility] [place] [address] Nov, [facility] [address] [id number] [address] [place] [address], [place] [address] Nov, [facility] [address] [id number] [facility] [place] [address] Nov, [facility] [address] [id number] [address] [place] [address], [place] [address] Nov, [facility] [address] [id number] [address] [place] [address], [place] [address] Nov, [facility] [address] [id number] [address] [place] [address], [place] [address] Nov, [facility] [address] [id number] [address] [place] [address], [place] [address] Nov, [facility] [address] [id number] [address] [place] [address], [place] [address] Oct, [facility] [address] [id number] [address] [place] [address], [place] [address] Oct, [facility] [address] [id number] [address] [place] [address], [place] [address] Sep, [facility] [address] [id number] [address] [place] [address], [place] [address] Sep, [facility] [address] [id number] [address] [place] [id number] Sep, [facility] [address] [id number] [address] [place] [address], [place] [address] Sep, [facility] [address] [id number] [address] [place] [address], [place] [address] Sep, [facility] [address] [id number] [address] [place] [address], [place] [address] Sep, [facility] [address] [id number] [address] [place] [address], [place] [address] 15 Aug, 2013 [facility] [address] [id number] [address] [place] [address], [place] [address] Aug, [facility] [address] [id number] [address] [place] [address], [place] [address] Aug, [facility] [address] [id number] [address] [place] [address], [place] [address] Aug, [facility] [address] [id number] [address] [place] [address], [place] [address] Jul, [facility] [address] [id number] [address] [place] [address], [place] [address] Jul, [facility] [address] [id number] [address] [place] [address], [place] [address] Jul, [facility] [address] [id number] [address] [place] [address], [place] [address] Jul, [facility] [address] [id number] [address] [place] [address], [place] [address] Jun, [facility] [address] [id number] [address] [place] [address], [place] [address] Jun, [facility] [address] [id number] [address] [place] [address], [place] [address] May, [facility] [address] [id number] [address] [place] [address], [place] [address] 24 May, 2013 [facility] [address] [id number] [address] [place] [address], [place] [address] May, [facility] [address] [id number] [address] [place] [address], [place] [address] May, [facility] [address] [id number] [address] [place] [address], [place] [address] 10 May, 2013 [facility] [address] [id number] [address] [place] [address], [place] [address] Apr, [facility] [address] [id number] [address] [place] [address], [place] [address] Apr, [facility] [address] [id number] [address] [place] [address], [place] [address] Mar, [facility] [address] [id number] [address] [place] [address], [place] [address] Mar, [facility] [address] [id number] [address] [place] [address], [place] [address] Mar, [facility] [address] [id number] [address] [place] [address], [place] [address] Mar, [facility] [address] [id number] [address] [place] [address], [place] [address] Feb, [facility] [address] [id number] [address] [place] [address], [place] [address] Feb, [facility] [address] [id number] [address] [place] [address], [place] [address] Feb, [facility] [address] [id number] [address] [place] [address], [place] [address] Feb, [facility] [address] [id number] [address] [place] [address], [place] [address] Feb, [facility] [address] [id number] [address] [place] [address], [place] [address] Jan, [facility] [address] [id number] [address] [place] [address], [place] [address] Jan, [facility] [address] [id number] [address] [place] [address], [place] [address] Jan, [facility] [address] [id number] [address] [place] [address], [place] [address] Jan, [facility] [address] [id number] [address] [place] [address], [place] [address] Jan, [facility] [address] [id number] [address] [place] [address], [place] [address] December, [facility] [address] [id number] [address] [place] [address], [place] [address] December, [facility] [address] [id number] [address] [place] [address], [place] [address] Nov, [facility] [address] [id number] [address] [place] [address], [place] [address] Nov, [facility] [address] [id number] [address] [place] [address], [place] [address] Oct, [facility] [address] [id number] [address] [place] [address], [place] [address] Oct, [facility] [address] [id number] [address] [place] [address], [place] [id number] 05 Oct, 2012 [facility] [address] [id number] [address] [place] [address], [place] [address] 14 Sep, 2012 [facility] [address] [id number] [address] [place] [address], [place] [address] Aug, [facility] [address] [id number] [address] [place] [address], [place] [id number] Aug, [facility] [address] [id number] [address] [place] [address], [place] [address] Aug, [facility] [address] [id number] [address] [place] [address], [place] [address] Aug, [facility] [address] [id number] [address] [place] [address], [place] [address] Jul, [facility] [address] [id number] [address] [place] [address], [place] [address] Jul, [facility] [address] [id number] [address] [place] [address], [place] [address] Jul, [facility] [address] [id number] [address] [place] [address], [place] [address] Jul, [facility] [address] [id number] [address] [place] [address], [place] [address] Jul, [facility] [address] [id number] [address] [place] [address], [place] [address] Jul, [facility] [address] [id number] [address] [place] [address], [place] [address] Jul, [facility] [address] [id number] [address] [place] [address], [place] [address] Jul, [facility] [address] [id number] [address] [place] [address], [place] [address] Jun, [facility] [address] [id number] [address] [place] [address], [place] [address] Jun, [facility] [address] [id number] [address] [place] [address], [place] [address] Jun, [facility] [address] [id number] [address] [place] [address], [place] [address] Jun, [facility] [address] [id number] [address] [place] [address], [place] [address] Jun, [facility] [address] [id number] [address] [place] [address], [place] [address] Jun, [facility] [address] [id number] [address] [place] [address], [place] [address] May, [facility] [address] [id number] [address] [place] [address], [place] [address] May, [facility] [address] [id number] [address] [place] [address], [place] [address] May, [facility] [address] [id number] [address] [place] [address], [place] [address] May, [facility] [address] [id number] [address] [place] [address], [place] [address] Apr, [facility] [address] [id number] [address] [place] [address], [place] [address] Apr, [facility] [address] [id number] [address] [place] [address], [place] [address] 08 Mar, 2012 [facility] [address] [id number] [address] [place] [address], [place] [address] 28 Jan, 2012 [facility] [address] [id number] [address] [place] [address], [place] [address] 20 Jan, 2012 [facility] [address] [id number] [address] [place] [address], [place] [address] 16 Jan, 2012 [facility] [address] [id number] [address] [place] [address], [place] [address] 15 Jan, 2012 [facility] [address] [id number] [address] [place] [address], [place] [address] 14 Jan, 2012 [facility] [address] [id number] [address] [place] [address], [place] [address] 14 Jan, 2012 [facility] [address] [id number] [address] [place] [address], [place] [address] 07 Jan, 2012 [facility] [address] [id number] [address] [place] [address], [place] [address] December, [facility] [address] [id number] [address] [place] [address], [place] [address] December, [facility] [address] [id number] [address] [place] [address], [place] [address] December, [facility] [address] [id number] [address] [place] [address], [place] [address] December, [facility] [address] [id number] [address] [place] [address], [place] [address] Nov, [facility] [address] [id number] [address] [place] [address], [place] [address] Nov, [facility] [address] [id number] [address] [place] [address], [place] [address] Oct, [facility] [address] [id number] [address] [place] [address], [place] [address] 28 Oct, 2011 [facility] [address] [id number] [address] [place] [address], [place] [address] Oct, [facility] [address] [id number] [address] [place] [address], [place] [address] Sep, [facility] [address] [id number] [address] [place] [address], [place] [address] Sep, [facility] [address] [id number] [address] [place] [address], [place] [address] Sep, [facility] [address] [id number] [address] [place] [address], [place] [address] Aug, [facility] [address] [id number] [address] [place] [address], [place] [address] Aug, [facility] [address] [id number] [address] [place] [address], [place] [address] Aug, [facility] [address] [id number] [address] [place] [address], [place] [address] Aug, [facility] [address] [id number] [address] [place] [address], [place] [address] Aug, [facility] [address] [id number] [address] [place] [address], [place] [address] Aug, [facility] [address] [id number] [address] [place] [address], [place] [address] Aug, [facility] [address] [id number] [address] [place] [address], [place] [address] Jul, [facility] [address] [id number] [address] [place] [address], [place] [address] Jul, [facility] [address] [id number] [address] [place] [address], [place] [address] Jun, [facility] [address] [id number] [address] [place] [address], [place] [address] Jun, [facility] [address] [id number] [address] [place] [address], [place] [address] 17 Jun, 2011 [facility] [address] [id number] [address] [place] [address], [place] [address] 15 Jun, 2011 [facility] [address] [id number] [address] [place] [address], [place] [address] 14 Jun, 2011 [facility] [address] [id number] [address] [place] [address], [place] [address] 14 Jun, 2011 [facility] [address] [id number] [address] [place] [address], [place] [address] Jun, [facility] [address] [id number] [address] [place] [address], [place] [address] Jun, [facility] [address] [id number] [address] [place] [address], [place] [address] Jun, [facility] [address] [id number] [address] [place] [address], [place] [address] Jun, [facility] [address] [id number] [address] [place] [address], [place] [address] May, [facility] [address] [id number] [address] [place] [address], [place] [address] May, [facility] [address] [id number] [address] [place] [address], [place] [address] May, [facility] [address] [id number] [address] [place] [id number] 24 May, 2011 [facility] [address] [id number] [address] [place] [address], [place] [address] 18 May, 2011 [facility] [address] [id number] [address] [place] [address], [place] [address] May, [facility] [address] [id number] [address] [place] [id number] Feb, [facility] [address] [id number] [address] [place] [id number] December, [facility] [address] [id number] [address] [place] [id number] Jul, [facility] [address] [id number] [address] [place] [id number] Jul, [facility] [address] [id number] [address] [place] [id number] Jul, [facility] [address] [id number] [address] [place] [id number] Jul, [facility] [address] [id number] [address] [place] [phone] Jun, [facility] [address] [id number] [address] [place] [id number] Jul, [facility] [address] [id number] [address] [place] [id number] Jul, [facility] [address] [id number] [address] [place] [id number] Jul, [facility] [address] [id number] [address] [place] [id number] Jul, [facility] [address] [id number] [address] [place] [phone] Jul, [facility] [address] [id number] [address] [place] [phone] Jul, [facility] [address] [id number] [address] [place] [phone] Jan, [facility] [address] [id number] [address] [place] [id number] 16 Sep, 2008 [facility] [address] [id number] [address] [place] [id number] 11 Sep, 2008 IMMUNIZATIONS No Known Immunizations [...]
--- OUTSIDE RECORDS SUMMARY | 2020-01-27 10:01 | XMS REPORT ---
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 Role Phone LETTY WILKINS Unavailable PROBLEMS Type Condition ICD9-CM Code [id number] Code Onset Dates Condition S tatus SNOMED Code Problem Hypertension I10 Active 8182540 3 Problem Generalized anxiety disorder F41.1 A ctive 801639252 Problem History of colon polyps Z86.010 Active 502033831 Problem History of diverticulitis Z87.19 Acti ve 481365513477859 Problem Family history of diabetes mellitus Z83.3 Active 538465923 Problem Excessive and frequent menstruation with irregular cycle N92.1 Active 835873036 Problem Hot flashes N95.1 Active 44509247 8 Problem Gastroesophageal reflux disease with esophagitis K 21.0 Active 690010751 Problem History of ovarian cyst Z87.42 Active 84864671 Problem Diverticulitis K57.92 Active 29291 6006 Problem Dense breast tissue R92.2 Active 945987313 Problem Perimenopausal N95.1 Active 43481 9727677859 Problem Mitral valve prolapse I34.1 Active 275737554 Problem Abnormal uterine bleeding (AUB) N93.9 Active 32679529605665 Problem Tachycardia R00.0 Active 3003183 ALLERGIES No Information ENCOUNTERS Encounter Location Date Diagnosis [facility] [address] [facility] [id number] [address] [place] [phone] Jan, [facility] [address] [facility] [id number] [address] [place] [phone] December, [facility] [address] [facility] [id number] [address] [place] [address] Nov, Generalized anxiety disorder F41.1 and Bereavement Z63.4 [place] [address] [facility] [id number] [address] [place] [address] 16 Nov, 2019 Generalized anxiety disorder F41.1 and Bereavement Z63.4 [facility] [address] [id number] [address] [place] [phone] 13 Nov, 2019 [facility] [address] [id number] [address] [place] [id number] 08 Nov, 2019 [facility] [address] [id number] [address] [place] [phone] 06 Nov, 2019 Generalized anxiety disorder F41.1 [facility] [address] [id number] [address] [place] [phone] 30 Oct, 2019 Generalized anxiety disorder F41.1 and Bereavement Z63.4 [facility] [address] [id number] [address] [place] [phone] 16 Oct, 2019 Acute non-recurrent sinusiti s, unspecified location J01.90 [facility] [address] [id number] [address] [place] [id number] 05 Oct, 2019 Acute non-recurrent frontal sinusitis J01.10 [facility] [address] [id number] [address] [place] [address] 27 Sep, 2019 Generalized anxiety disorder F41.1 and Bereavement Z63.4 [facility] [address] [id number] [address] [place] [id number] 17 Sep, 2019 [facility] [address] [id number] [address] [place] [phone] Sep, Generalized anxiety disorder F41.1 and Bereavement Z63.4 [facility] [address] [id number] [address] [place] [id number] 15 Aug, 2019 Generalized anxiety disorder F41.1 and Bereavement Z63.4 [facility] [address] [id number] [address] [place] [id number] 13 Aug, 2019 Generalized anxiety disorder F41.1 [facility] [address] [id number] [address] [place] [address] Aug, Viral upper respiratory trac t infection J06.9 [facility] [address] [facility] [id number] [address] [place] [phone] Jul, Generalized anxiety disorder F41.1 and Bereavement Z63.4 [facility] [address] [facility] [id number] [address] [place] [address] Jul, Acute non-recurrent frontal sinusitis J01.10 [facility] [address] [facility] [id number] [address] [place] [phone] Jul, [facility] [address] [facility] [id number] [address] [place] [phone] Jul, Sore throat J02.9 and Uvulit is K12.2 [facility] [address] [facility] [id number] [address] [place] [address] Jul, Generalized anxiety disorder F41.1 [facility] [address] [facility] [id number] [address] [address] Jul, Caries K02.9 [facility] [address] [facility] [id number] [address] [place] [id number] Jun, Generalized anxiety disorder F41.1 [facility] [address] [facility] [id number] [address] [place] [address] Jun, Generalized anxiety disorder F41.1 and Bereavement Z63.4 [facility] [address] [facility] [id number] [address] [place] [address] May, Generalized anxiety disorder F41.1 [facility] [address] [facility] [id number] [address] [place] [address] May, Dysuria R30.0 [facility] [address] [facility] [id number] [address] [place] [phone] 09 May, 2019 Generalized anxiety disorder F41.1 and Bereavement Z63.4 [facility] [address] [facility] [id number] [address] [place] [phone] May, [facility] [address] [facility] [id number] [address] [place] [phone] Apr, Generalized anxiety disorder F41.1 and Bereavement Z63.4 [facility] [address] [facility] [id number] [address] [place] [address] Apr, Generalized anxiety disorder F41.1 [facility] [address] [facility] [id number] [address] [place] [address] Mar, Caries K02.9 ; Dental examin ation Z01.20 ; Periodontitis K05.30 and Oral health maintenance status requiring routine preventive dental care K08.9 [facility] [address] [facility] [id number] [address] [place] [address] Mar, Generalized anxiety disorder F41.1 [facility] [address] [facility] [id number] [address] [place] [address] Mar, Gastrointestinal hemorrhage associated with gastroduodenitis K29.91 [facility] [address] [facility] [id number] [address] [place] [address] Mar, Generalized anxiety disorder F41.1 and Bereavement Z63.4 [facility] [address] [facility] [id number] [address] [place] [address] Mar, [facility] [address] [facility] [id number] [address] [place] [phone] Mar, [facility] [address] [facility] [id number] [address] [place] [address] Mar, [facility] [address] [facility] [id number] [address] [place] [phone] Mar, Tachycardia R00.0 and Essent ial hypertension I10 [facility] [address] [facility] [id number] [address] [place] [id number] Feb, Generalized anxiety disorder F41.1 [facility] [address] [id number] [address] [place] [id number] Feb, Generalized anxiety disorder F41.1 and Bereavement Z63.4 [facility] [address] [id number] [address] [place] [address] Feb, Generalized anxiety disorder F41.1 [facility] [address] [facility] [id number] [address] [place] [address] Feb, Generalized anxiety disorder F41.1 and Bereavement Z63.4 [facility] [address] [id number] [address] [place] [address] Jan, [facility] [address] [facility] [id number] [address] [place] [address] Jan, Breast cancer screening by trenton crenshaw Z12.31 [facility] [address] [facility] [id number] [address] [place] [address] Jan, Generalized anxiety disorder F41.1 and Bereavement Z63.4 [facility] [address] [facility] [id number] [address] [place] [address] Jan, [facility] [address] [facility] [id number] [address] [place] [id number] December, Generalized anxiety disorder F41.1 and Bereavement Z63.4 [facility] [address] [facility] [id number] [address] [place] [address] December, Diverticulitis K57.92 ; Dysu nick R30.0 ; Other constipation K59.09 and Lower abdominal pain R10.30 [facility] [address] [facility] [id number] [address] [place] [address] Nov, Diverticulitis K57.92 [facility] [address] [facility] [id number] [address] [place] [address] Nov, Generalized anxiety disorder F41.1 and Bereavement Z63.4 [facility] [address] [facility] [id number] [address] [place] [address] Nov, Generalized anxiety disorder F41.1 and Bereavement Z63.4 [facility] [address] [facility] [id number] [address] [place] [address] Nov, Diverticulitis K57.92 [facility] [address] [facility] [id number] [address] [place] [address] Oct, Diverticulitis K57.92 [facility] [address] [facility] [id number] [address] [place] [address] Oct, Diverticulitis K57.92 [facility] [address] [place] [id number] [address] [place] [id number] Oct, Generalized anxiety disorder F41.1 [facility] [address] [facility] [id number] [address] [place] [address] Oct, Right lower quadrant abdomin al pain R10.31 and Diverticulitis K57.92 [facility] [address] [place] [id number] [address] [place] [id number] Sep, Generalized anxiety disorder F41.1 and Bereavement Z63.4 [place] [id number] [place] [address] Aug, [facility] [address] [facility] [id number] [address] [place] [address] Aug, Generalized anxiety disorder F41.1 and Bereavement Z63.4 [facility] [id number] [address] Aug, Caries K02.9 [facility] [address] [facility] [id number] [address] [place] [id number] Jul, Generalized anxiety disorder F41.1 and Bereavement Z63.4 [place] [address] [facility] [id number] [address] [place] [address] Jul, Other acute gastritis withou t hemorrhage K29.00 ; Generalized anxiety disorder F41.1 ; Tachycardia R00.0 and Essential hypertension I10 [facility] [address] [facility] [id number] [address] [place] [address] 05 Jul, 2018 Generalized anxiety disorder F41.1 and Bereavement Z63.4 [facility] [address] [facility] [id number] [address] [place] [address] Jun, Generalized anxiety disorder F41.1 and Bereavement Z63.4 [facility] [address] [facility] [id number] [address] [place] [address] Jun, Generalized anxiety disorder F41.1 and Bereavement Z63.4 [facility] [address] [id number] [address] [address] Jun, Dental examination Z01.20 [facility] [address] [facility] [id number] [address] [place] [address] May, Generalized anxiety disorder F41.1 and Bereavement Z63.4 [facility] [address] [facility] [id number] [address] [place] [address] May, Encounter for immunization Z 23 [facility] [address] [facility] [id number] [address] [place] [id number] 08 May, 2018 Generalized anxiety disorder F41.1 and Bereavement Z63.4 [facility] [address] [facility] [id number] [address] [place] [address] May, [facility] [address] [facility] [id number] [address] [place] [phone] 24 Apr, 2018 Generalized anxiety disorder F41.1 and Bereavement Z63.4 [facility] [address] [facility] [id number] [address] [place] [address] 17 Apr, 2018 [facility] [address] [facility] [id number] [address] [place] [address] 13 Apr, 2018 Diverticulitis K57.92 [facility] [address] [facility] [id number] [address] [place] [id number] 10 Apr, 2018 Generalized anxiety disorder F41.1 and Bereavement Z63.4 [facility] [address] [id number] [address] [place] [address] Mar, [facility] [address] [id number] [address] [place] [address] Mar, Diverticulitis K57.92 [facility] [address] [id number] [address] [place] [address] Mar, Generalized anxiety disorder F41.1 and Bereavement Z63.4 [facility] [address] [id number] [address] [place] [id number] Mar, Hypertension I10 [facility] [address] [id number] [address] [place] [id number] Mar, Generalized anxiety disorder F41.1 and Bereavement Z63.4 [facility] [address] [id number] [address] [place] [address] Feb, Generalized anxiety disorder F41.1 and Bereavement Z63.4 [facility] [address] [id number] [address] [place] [address] Feb, [facility] [address] [facility] [id number] [address] [place] [id number] Feb, Generalized anxiety disorder F41.1 and Bereavement Z63.4 [facility] [address] [facility] [id number] [address] [place] [phone] Feb, Generalized anxiety disorder F41.1 and Bereavement Z63.4 [facility] [address] [id number] [address] [place] [address] Jan, Hypertension I10 and Acute n on-recurrent maxillary sinusitis J01.00 [facility] [address] [id number] [address] [place] [address] December, [facility] [address] [id number] [address] [place] [phone] December, Hypertension I10 [facility] [address] [id number] [address] [place] [address] December, Generalized anxiety disorder F41.1 [facility] [address] [id number] [address] [address] 16 Oct, 2017 Encounter for dental examina tion Z01.20 [facility] [address] [id number] [address] [place] [address] 06 Oct, 2017 Encounter for dental examina tion Z01.20 [facility] [address] [id number] [address] [place] [address] 02 Oct, 2017 Dental examination Z01.20 [facility] [address] [id number] [address] [place] [address] Oct, Generalized anxiety disorder F41.1 [facility] [address] [id number] [address] [place] [address] Aug, Dental examination Z01.20 [facility] [address] [id number] [address] [place] [address] Aug, Generalized anxiety disorder F41.1 [facility] [address] [id number] [address] [place] [phone] Aug, [facility] [address] [id number] [address] [place] [address] Aug, Encounter for dental examina tion Z01.20 [facility] [address] [id number] [address] [place] [address] Aug, Subacute maxillary sinusitis J01.00 [facility] [address] [id number] [address] [place] [address] Jul, Dental examination Z01.20 [facility] [address] [id number] [address] [place] [address] Jul, Generalized anxiety disorder F41.1 [facility] [address] [id number] [address] [place] [address] Jul, Diverticulitis K57.92 [facility] [address] [id number] [address] [place] [address] Jun, Encounter for immunization Z 23 [facility] [address] [id number] [address] [place] [address] 22 Jun, 2017 Dental examination Z01.20 [facility] [address] [id number] [address] [place] [address] 14 Jun, 2017 Generalized anxiety disorder F41.1 [facility] [address] [id number] [address] [place] [address] 07 Jun, 2017 Dental examination Z01.20 [facility] [address] [id number] [address] [place] [address] May, [facility] [address] [id number] [address] [place] [id number] May, Dental examination Z01.20 [facility] [address] [id number] [address] [place] [id number] May, Dental examination Z01.20 [facility] [address] [id number] [address] [place] [address] May, Dental examination Z01.20 [facility] [address] [id number] [address] [place] [address] May, [facility] [address] [id number] [address] [place] [address] May, Generalized anxiety disorder F41.1 [facility] [address] [id number] [address] [place] [address] May, Localized edema R60.0 ; Yeas t vaginitis B37.3 and Gastroesophageal reflux disease with esophagitis K21.0 [facility] [address] [id number] [address] [place] [address] [id number] Apr, Dental examination Z01.20 [facility] [address] [id number] [address] [address] Apr, Dental examination Z01.20 [facility] [address] [id number] [address] [address] 05 Apr, 2017 Dental examination Z01.20 [facility] [address] [id number] [address] [place] [address] Mar, Dyspepsia R10.13 [facility] [address] [id number] [address] [place] [address] Mar, Generalized anxiety disorder F41.1 [facility] [address] [id number] [address] [address] Mar, Encounter for dental examina tion Z01.20 [facility] [address] [id number] [address] [place] [address] [id number] Mar, [facility] [address] [id number] [address] [place] [id number] Mar, Dental examination Z01.20 [facility] [address] [id number] [address] [place] [address] Feb, Hypertension I10 and Tachyca rdia R00.0 [facility] [address] [id number] [address] [address] Feb, [facility] [address] [id number] [address] [place] [address] Feb, Generalized anxiety disorder F41.1 [facility] [address] [id number] [address] [place] [id number] Feb, Dental examination Z01.20 [facility] [address] [id number] [address] [place] [phone] Jan, Generalized anxiety disorder F41.1 [facility] [address] [id number] [address] [place] [phone] December, Generalized anxiety disorder F41.1 [facility] [address] [id number] [address] [place] [address] [id number] December, Encounter for dental examina tion Z01.20 [facility] [address] [id number] [address] [place] [phone] Nov, [facility] [address] [id number] [address] [place] [phone] Nov, [facility] [address] [id number] [address] [place] [address] Nov, Generalized anxiety disorder F41.1 [facility] [address] [id number] [address] [place] [id number] Oct, [facility] [address] [id number] [address] [place] [address] [id number] Oct, Dental examination Z01.20 [facility] [address] [id number] [address] [place] [id number] Oct, Vaginal dryness N89.8 [facility] [address] [id number] [address] [place] [phone] Oct, Pseudoseizures F44.5 [facility] [address] [facility] [id number] [address] [place] [phone] Oct, Generalized anxiety disorder F41.1 [facility] [address] [id number] [address] [place] [address] Sep, Abnormal uterine bleeding (A UB) N93.9 ; Vaginal dryness N89.8 and Screening breast examination Z12.39 [facility] [address] [id number] [address] [place] [address] Sep, Dental examination Z01.20 [facility] [address] [id number] [address] [place] [address] Sep, Generalized anxiety disorder F41.1 [facility] [address] [id number] [address] [place] [id number] Sep, Unspecified ovarian cyst, ri ght side N83.201 ; Unspecified ovarian cyst, left side N83.202 ; Yeast infection of the vagina B37.3 ; Mitral valve prolapse I34.1 and Hypertension I10 [facility] [address] [facility] [id number] [address] [place] [id number] Aug, Generalized anxiety disorder F41.1 [facility] [address] [facility] [id number] [address] [place] [id number] Jul, [facility] [address] [facility] [id number] [address] [place] [id number] Jul, Generalized anxiety disorder F41.1 [facility] [address] [facility] [id number] [address] [place] [phone] Jun, Generalized anxiety disorder F41.1 [facility] [address] [facility] [id number] [address] [place] [id number] 28 May, 2016 Encounter for immunization Z 23 [facility] [address] [facility] [id number] [address] [place] [id number] 17 May, 2016 Generalized anxiety disorder F41.1 and Depressive disorder, not elsewhere classified F32.9 [facility] [address] [facility] [id number] [address] [place] [id number] 28 Apr, 2016 Hypertension I10 [facility] [address] [facility] [id number] [address] [place] [id number] 22 Apr, 2016 Cervicalgia M54.2 [facility] [address] [facility] [id number] [address] [place] [id number] 12 Apr, 2016 Cervicalgia M54.2 [facility] [address] [facility] [id number] [address] [place] [address] 09 Mar, 2016 Generalized anxiety disorder F41.1 and Depressive disorder, not elsewhere classified F32.9 [facility] [address] [id number] [address] [place] [address] [id number] 14 Feb, 2016 Visit for dental examination Z01.20 [facility] [address] [facility] [id number] [address] [place] [id number] 11 Feb, 2016 Pseudoseizures F44.5 ; Migra ine without status migrainosus, not intractable, unspecified migraine type G43.909 and Essential hypertension I10 [facility] [address] [id number] [address] [place] [address] [id number] 06 Feb, 2016 Dental examination Z01.20 [facility] [address] [facility] [id number] [address] [place] [id number] 05 Feb, 2016 Generalized anxiety disorder F41.1 and Depressive disorder, not elsewhere classified F32.9 [facility] [address] [facility] [id number] [address] [place] [address] 27 Jan, 2016 Tachycardia R00.0 [place] [address] [facility] [id number] [address] [place] [address] December, Eustachian tube dysfunction, bilateral H69.83 [facility] [address] [facility] [id number] [address] [place] [address] December, Generalized anxiety disorder F41.1 and Depressive disorder, not elsewhere classified F32.9 [facility] [address] [place] [id number] [address] [place] [address] Nov, [place] [address] [place] [id number] [address] [place] [address] Nov, [facility] [address] [place] [id number] [address] [place] [id number] 20 Nov, 2015 Hypertension I10 ; Onychomyc [...] cyst of left ovary N83.29 [place] [id number] [place] [id number] [address] [place] [address] 14 Nov, 2015 Sinusitis J32.9 [place] [address] [place] [id number] [address] [place] [address] Oct, Complex cyst of left ovary N 83.29 [place] [address] [place] [id number] [address] [place] [address] Oct, Onychomycosis B35.1 [facility] [address] [place] [id number] [address] [place] [address] [id number] 17 Oct, 2015 Dental examination Z01.20 [place] [address] [id number] 09 Oct, 2015 Well woman exam Z01.419 [...] R92.2 and History of colon polyps Z86.010 [place] [address] [place] [id number] [address] [place] [address] Oct, Generalized anxiety disorder F41.1 and Depressive disorder, not elsewhere classified F32.9 [place] [address] [place] [id number] [address] [place] [address] Sep, Hypertension I10 and Onychom ycosis B35.1 [place] [address] [address] Sep, Skin tags, multiple acquired L91.8 [place] [address] [place] [id number] [address] [place] [address] Aug, [place] [address] [place] [address] Aug, [facility] [address] [id number] [address] [place] [address] Aug, [facility] [address] [id number] [address] [place] [address] Aug, Generalized anxiety disorder F41.1 and Depressive disorder, not elsewhere classified F32.9 [facility] [address] [id number] [address] [place] [address] Jul, Skin lesion L98.9 [facility] [address] [id number] [address] [place] [id number] Jun, Generalized anxiety disorder F41.1 and Depressive disorder, not elsewhere classified F32.9 [facility] [address] [id number] [address] [place] [address] Jun, [facility] [address] [facility] [id number] [address] [place] [address] Jun, Generalized anxiety disorder F41.1 [facility] [address] [id number] [address] [place] [address] May, Encounter for immunization Z 23 and Right shoulder pain M25.511 [facility] [address] [id number] [address] [place] [address] Apr, [facility] [address] [id number] [address] [place] [id number] 14 Apr, 2015 Generalized anxiety disorder 300.02 and Depressive disorder, not elsewhere classified 311 [facility] [address] [id number] [address] [place] [address] [id number] Mar, Dental examination V72.2 [facility] [address] [id number] [address] [place] [address] Mar, Generalized anxiety disorder 300.02 and Depressive disorder, not elsewhere classified 311 [facility] [address] [id number] [address] [place] [address] Mar, Depression, major, recurrent , 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.35 and 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 [facility] [address] [id number] [address] [place] [address] Feb, Generalized anxiety disorder 300.02 and Depressive disorder, not elsewhere classified 311 [facility] [address] [id number] [address] [place] [address] [id number] 07 Feb, 2015 Dental examination V72.2 [facility] [address] [id number] [address] [place] [id number] 09 Jan, 2015 Generalized anxiety disorder 300.02 and Depressive disorder, not elsewhere classified 311 [facility] [address] [facility] [id number] [address] [place] [address] Jan, [facility] [address] [facility] [id number] [address] [place] [address] December, Generalized anxiety disorder 300.02 and Depressive disorder, not elsewhere classified 311 [facility] [address] [facility] [id number] [address] [place] [address] December, Major depressive disorder, r ecurrent, unspecified 296.30 and Panic disorder with agoraphobia 300.21 [facility] [address] [facility] [id number] [address] [place] [address] Nov, [facility] [address] [facility] [id number] [address] [place] [phone] Nov, [facility] [address] [facility] [id number] [address] [place] [address] Oct, [facility] [address] [facility] [id number] [address] [place] [id number] Oct, [facility] [address] [facility] [id number] [address] [place] [address] Oct, [facility] [address] [facility] [id number] [address] [place] [id number] Oct, [facility] [address] [facility] [id number] [address] [place] [address] Sep, 2014 [facility] [address] [id number] [address] [place] [address], [place] [address] Sep, 2014 [facility] [address] [id number] [address] [place] [address], [place] [address] Sep, 2014 [facility] [address] [id number] [address] [place] [address], [place] [address] Sep, 2014 [facility] [address] [id number] [address] [place] [address], [place] [address] Sep, 2014 [facility] [address] [id number] [address] [place] [address], [place] [address] Sep, 2014 [facility] [address] [id number] [address] [place] [address], [place] [address] Sep, 2014 [facility] [address] [id number] [address] [place] [address], [place] [address] Sep, 2014 [facility] [address] [id number] [address] [place] [address], [place] [address] Sep, 2014 [facility] [address] [id number] [address] [place] [address], [place] [address] Sep, 2014 [facility] [address] [id number] [address] [place] [address], [place] [address] Aug, [facility] [address] [id number] [address] [place] [address], [place] [address] Aug, [facility] [address] [id number] [address] [place] [address], [place] [address] Jul, [facility] [address] [id number] [address] [place] [address], [place] [address] Jul, [facility] [address] [id number] [address] [place] [address], [place] [address] Jul, [facility] [address] [id number] [address] [place] [address], [place] [address] Jul, [facility] [address] [id number] [address] [place] [address], [place] [address] Jul, [facility] [address] [id number] [address] [place] [address], [place] [address] Jul, [facility] [address] [id number] [address] [place] [address], [place] [address] Jul, [facility] [address] [id number] [address] [place] [address], [place] [address] Jul, [facility] [address] [id number] [address] [place] [address], [place] [address] Jul, [facility] [address] [id number] [address] [place] [address], [place] [address] Jul, [facility] [address] [id number] [address] [place] [address], [place] [address] Jul, [facility] [address] [id number] [address] [place] [address], [place] [address] Jul, [facility] [address] [id number] [address] [place] [address], [place] [address] Jun, [facility] [address] [id number] [address] [place] [address], [place] [address] Jun, [facility] [address] [id number] [address] [place] [address], [place] [address] May, [facility] [address] [id number] [address] [place] [address], [place] [address] May, [facility] [address] [id number] [address] [place] [address], [place] [address] May, [facility] [address] [id number] [address] [place] [address], [place] [address] May, [facility] [address] [id number] [address] [place] [address], [place] [address] May, [facility] [address] [id number] [address] [place] [address], [place] [address] May, [facility] [address] [id number] [address] [place] [address], [place] [address] May, [facility] [address] [id number] [address] [place] [address], [place] [address] May, [facility] [address] [id number] [address] [place] [address], [place] [address] May, [facility] [address] [id number] [address] [place] [address], [place] [address] May, [facility] [address] [id number] [address] [place] [address], [place] [address] May, [facility] [address] [id number] [address] [place] [address], [place] [address] May, [facility] [address] [id number] [address] [place] [address], [place] [address] 30 Apr, 2014 [facility] [address] [id number] [address] [place] [address], [place] [address] 30 Apr, 2014 [facility] [address] [id number] [address] [place] [address], [place] [address] 29 Apr, 2014 [facility] [address] [id number] [address] [place] [address], [place] [address] 29 Apr, 2014 [facility] [address] [id number] [address] [place] [address], [place] [address] Apr, [facility] [address] [id number] [address] [place] [address], [place] [address] Apr, [facility] [address] [id number] [address] [place] [address], [place] [address] Feb, [facility] [address] [id number] [address] [place] [address], [place] [address] Feb, [facility] [address] [id number] [address] [place] [address], [place] [address] Feb, [facility] [address] [id number] [facility] [address] Feb, [facility] [address] [id number] [address] [place] [address], [place] [address] Feb, [facility] [address] [id number] [facility] [address] Feb, [facility] [address] [id number] [address] [place] [address], [place] [address] Jan, [facility] [address] [id number] [address] [place] [address], [place] [address] Jan, [facility] [address] [id number] [address] [place] [address], [place] [address] Jan, [facility] [address] [id number] [address] [place] [address], [place] [address] Jan, [facility] [address] [id number] [address] [place] [address], [place] [address] Jan, [facility] [address] [id number] [address] [place] [address], [place] [address] Jan, [facility] [address] [id number] [address] [place] [address], [place] [address] Jan, [facility] [address] [id number] [address] [place] [address], [place] [address] Jan, [facility] [address] [id number] [address] [place] [address], [place] [address] December, [facility] [address] [id number] [address] [place] [address], [place] [address] December, [facility] [address] [id number] [address] [place] [address], [place] [address] December, [facility] [address] [id number] [address] [place] [address], [place] [address] December, [facility] [address] [id number] [address] [place] [address], [place] [address] Nov, [facility] [address] [id number] [facility] [address] Nov, [facility] [address] [id number] [address] [place] [address], [place] [address] Nov, [facility] [address] [id number] [facility] [address] Nov, [facility] [address] [id number] [address] [place] [address], [place] [address] Nov, [facility] [address] [id number] [address] [place] [address], [place] [address] Nov, [facility] [address] [id number] [address] [place] [address], [place] [address] Nov, [facility] [address] [id number] [address] [place] [address], [place] [address] Nov, [facility] [address] [id number] [address] [place] [address], [place] [address] Oct, [facility] [address] [id number] [address] [place] [address], [place] [address] Oct, [facility] [address] [id number] [address] [place] [address], [place] [address] Sep, [facility] [address] [id number] [address] [place] [address], [place] [address] Sep, [facility] [address] [id number] [address] [place] [address] [id number] Sep, [facility] [address] [id number] [address] [place] [address], [place] [address] Sep, [facility] [address] [id number] [address] [place] [address], [place] [address] Sep, [facility] [address] [id number] [address] [place] [address], [place] [address] Sep, [facility] [address] [id number] [address] [place] [address], [place] [address] 15 Aug, 2013 [facility] [address] [id number] [address] [place] [address], [place] [address] Aug, [facility] [address] [id number] [address] [place] [address], [place] [address] Aug, [facility] [address] [id number] [address] [place] [address], [place] [address] Aug, [facility] [address] [id number] [address] [place] [address], [place] [address] Jul, [facility] [address] [id number] [address] [place] [address], [place] [address] Jul, [facility] [address] [id number] [address] [place] [address], [place] [address] Jul, [facility] [address] [id number] [address] [place] [address], [place] [address] Jul, [facility] [address] [id number] [address] [place] [address], [place] [address] Jun, [facility] [address] [id number] [address] [place] [address], [place] [address] Jun, [facility] [address] [id number] [address] [place] [address], [place] [address] May, [facility] [address] [id number] [address] [place] [address], [place] [address] 24 May, 2013 [facility] [address] [id number] [address] [place] [address], [place] [address] May, [facility] [address] [id number] [address] [place] [address], [place] [address] May, [facility] [address] [id number] [address] [place] [address], [place] [address] 10 May, 2013 [facility] [address] [id number] [address] [place] [address], [place] [address] Apr, [facility] [address] [id number] [address] [place] [address], [place] [address] Apr, [facility] [address] [id number] [address] [place] [address], [place] [address] Mar, [facility] [address] [id number] [address] [place] [address], [place] [address] Mar, [facility] [address] [id number] [address] [place] [address], [place] [address] Mar, [facility] [address] [id number] [address] [place] [address], [place] [address] Mar, [facility] [address] [id number] [address] [place] [address], [place] [address] Feb, [facility] [address] [id number] [address] [place] [address], [place] [address] Feb, [facility] [address] [id number] [address] [place] [address], [place] [address] Feb, [facility] [address] [id number] [address] [place] [address], [place] [address] Feb, [facility] [address] [id number] [address] [place] [address], [place] [address] Feb, [facility] [address] [id number] [address] [place] [address], [place] [address] Jan, [facility] [address] [id number] [address] [place] [address], [place] [address] Jan, [facility] [address] [id number] [address] [place] [address], [place] [address] Jan, [facility] [address] [id number] [address] [place] [address], [place] [address] Jan, [facility] [address] [id number] [address] [place] [address], [place] [address] Jan, [facility] [address] [id number] [address] [place] [address], [place] [address] December, [facility] [address] [id number] [address] [place] [address], [place] [address] December, [facility] [address] [id number] [address] [place] [address], [place] [address] Nov, [facility] [address] [id number] [address] [place] [address], [place] [address] Nov, [facility] [address] [id number] [address] [place] [address], [place] [address] Oct, [facility] [address] [id number] [address] [place] [address], [place] [address] Oct, [facility] [address] [id number] [address] [place] [address], [place] [address] 05 Oct, 2012 [facility] [address] [id number] [address] [place] [address], [place] [address] 14 Sep, 2012 [facility] [address] [id number] [address] [place] [address], [place] [address] Aug, [facility] [address] [id number] [address] [place] [address], [place] [address] Aug, [facility] [address] [id number] [address] [place] [address], [place] [address] Aug, [facility] [address] [id number] [address] [place] [address], [place] [address] Aug, [facility] [address] [id number] [address] [place] [address], [place] [address] Jul, [facility] [address] [id number] [address] [place] [address], [place] [address] Jul, [facility] [address] [id number] [address] [place] [address], [place] [address] Jul, [facility] [address] [id number] [address] [place] [address], [place] [address] Jul, [facility] [address] [id number] [address] [place] [address], [place] [address] Jul, [facility] [address] [id number] [address] [place] [address], [place] [address] Jul, [facility] [address] [id number] [address] [place] [address], [place] [address] Jul, [facility] [address] [id number] [address] [place] [address], [place] [address] Jul, [facility] [address] [id number] [address] [place] [address], [place] [address] Jun, [facility] [address] [id number] [address] [place] [address], [place] [address] Jun, [facility] [address] [id number] [address] [place] [address], [place] [address] Jun, [facility] [address] [id number] [address] [place] [address], [place] [address] Jun, [facility] [address] [id number] [address] [place] [address], [place] [address] Jun, [facility] [address] [id number] [address] [place] [address], [place] [address] Jun, [facility] [address] [id number] [address] [place] [address], [place] [address] May, [facility] [address] [id number] [address] [place] [address], [place] [address] May, [facility] [address] [id number] [address] [place] [address], [place] [address] May, [facility] [address] [id number] [address] [place] [address], [place] [address] May, [facility] [address] [id number] [address] [place] [address], [place] [address] Apr, [facility] [address] [id number] [address] [place] [address], [place] [address] Apr, [facility] [address] [id number] [address] [place] [address], [place] [address] 08 Mar, 2012 [facility] [address] [id number] [address] [place] [address], [place] [address] 28 Jan, 2012 [facility] [address] [id number] [address] [place] [address], [place] [address] 20 Jan, 2012 [facility] [address] [id number] [address] [place] [address], [place] [address] 16 Jan, 2012 [facility] [address] [id number] [address] [place] [address], [place] [address] 15 Jan, 2012 [facility] [address] [id number] [address] [place] [address], [place] [address] 14 Jan, 2012 [facility] [address] [id number] [address] [place] [address], [place] [address] 14 Jan, 2012 [facility] [address] [id number] [address] [place] [address], [place] [address] 07 Jan, 2012 [facility] [address] [id number] [address] [place] [address], [place] [address] December, [facility] [address] [id number] [address] [place] [address], [place] [address] December, [facility] [address] [id number] [address] [place] [address], [place] [address] December, [facility] [address] [id number] [address] [place] [address], [place] [address] December, [facility] [address] [id number] [address] [place] [address], [place] [address] Nov, [facility] [address] [id number] [address] [place] [address], [place] [address] Nov, [facility] [address] [id number] [address] [place] [address], [place] [address] Oct, [facility] [address] [id number] [address] [place] [address], [place] [address] 28 Oct, 2011 [facility] [address] [id number] [address] [place] [address], [place] [address] Oct, [facility] [address] [id number] [address] [place] [address], [place] [address] Sep, [facility] [address] [id number] [address] [place] [address], [place] [address] Sep, [facility] [address] [id number] [address] [place] [address], [place] [address] Sep, [facility] [address] [id number] [address] [place] [address], [place] [address] Aug, [facility] [address] [id number] [address] [place] [address], [place] [address] Aug, [facility] [address] [id number] [address] [place] [address], [place] [address] Aug, [facility] [address] [id number] [address] [place] [address], [place] [address] Aug, [facility] [address] [id number] [address] [place] [address], [place] [address] Aug, [facility] [address] [id number] [address] [place] [address], [place] [address] Aug, [facility] [address] [id number] [address] [place] [address], [place] [address] Aug, [facility] [address] [id number] [address] [place] [address], [place] [address] Jul, [facility] [address] [id number] [address] [place] [address], [place] [address] Jul, [facility] [address] [id number] [address] [place] [address], [place] [address] Jun, [facility] [address] [id number] [address] [place] [address], [place] [address] Jun, [facility] [address] [id number] [address] [place] [address], [place] [address] 17 Jun, 2011 [facility] [address] [id number] [address] [place] [address], [place] [address] 15 Jun, 2011 [facility] [address] [id number] [address] [place] [address], [place] [address] 14 Jun, 2011 [facility] [address] [id number] [address] [place] [address], [place] [address] 14 Jun, 2011 [facility] [address] [id number] [address] [place] [address], [place] [address] Jun, [facility] [address] [id number] [address] [place] [address], [place] [address] Jun, [facility] [address] [id number] [address] [place] [address], [place] [address] Jun, [facility] [address] [id number] [address] [place] [address], [place] [address] Jun, [facility] [address] [id number] [address] [place] [address], [place] [address] May, [facility] [address] [id number] [address] [place] [address], [place] [address] May, [facility] [address] [id number] [address] [place] [address], [place] [address] May, [facility] [address] [id number] [address] [place] [id number] 24 May, 2011 [facility] [address] [id number] [address] [place] [address], [place] [address] 18 May, 2011 [facility] [address] [id number] [address] [place] [address], [place] [address] May, [facility] [address] [id number] [address] [place] [address] Feb, [facility] [address] [id number] [address] [place] [address] December, [facility] [address] [id number] [address] [place] [address] Jul, [facility] [address] [id number] [address] [place] [address] Jul, [facility] [address] [id number] [address] [place] [address] Jul, [facility] [address] [id number] [address] [place] [address] Jul, [facility] [address] [id number] [address] [place] [address] Jun, [facility] [address] [id number] [address] [place] [address] Jul, [facility] [address] [id number] [address] [place] [address] Jul, [facility] [address] [id number] [address] [place] [address] Jul, [facility] [address] [id number] [address] [place] [id number] Jul, [facility] [address] [id number] [address] [place] [address] Jul, [facility] [address] [id number] [address] [place] [address] Jul, [facility] [address] [id number] [address] [place] [address] Jan, [facility] [address] [id number] [address] [place] [id number] 16 Sep, 2008 [facility] [address] [id number] [address] [place] [id number] 11 Sep, 2008 IMMUNIZATIONS No Known Immunizations [...]
--- OUTSIDE RECORDS SUMMARY | 2020-01-27 10:02 | XMS REPORT ---
Author Author Silvia MERCHANT Organization [facility] Address [address] [place] [address] Care Team Providers Care Hypnotherapist Name Role Phone KVNG MERCHANT Unavailable PROBLEMS Type Condition ICD9-CM Code AIS40-AC Code Onset Dates Condition S tatus SNOMED Code Problem Hypertension I10 Active 8335022 3 Problem Generalized anxiety disorder F41.1 A ctive 159303254 Problem History of colon polyps Z86.010 Active 185102755 Problem History of diverticulitis Z87.19 Acti ve 349063238600763 Problem Family history of diabetes mellitus Z83.3 Active 244400590 Problem Excessive and frequent menstruation with irregular cycle N92.1 Active 031137563 Problem Hot flashes N95.1 Active 65310296 8 Problem Gastroesophageal reflux disease with esophagitis K 21.0 Active 213539602 Problem History of ovarian cyst Z87.42 Active 39974685 Problem Diverticulitis K57.92 Active 18537 6006 Problem Dense breast tissue R92.2 Active 232425836 Problem Perimenopausal N95.1 Active 39526 9319811838 Problem Mitral valve prolapse I34.1 Active 493556015 Problem Abnormal uterine bleeding (AUB) N93.9 Active [id number] Problem Tachycardia R00.0 Active 0846172 ALLERGIES No Information ENCOUNTERS Encounter Location Date Diagnosis [facility] [address] [facility] [id number] [address] [place] [address] December, [facility] [address] [facility] [id number] [address] [place] [address] 30 Nov, 2019 [place] [address] [facility] [id number] [address] [place] [address] 16 Nov, 2019 Generalized anxiety disorder F41.1 and Bereavement Z63.4 [facility] [address] [facility] [id number] [address] [place] [address] Nov, [facility] [address] [id number] [address] [place] [id number] Nov, [facility] [address] [id number] [address] [place] [address] Nov, Generalized anxiety disorder F41.1 [facility] [address] [id number] [address] [place] [address] 30 Oct, 2019 Generalized anxiety disorder F41.1 and Bereavement Z63.4 [facility] [address] [id number] [address] [place] [phone] 16 Oct, 2019 Acute non-recurrent sinusiti s, unspecified location J01.[address] [facility]ALK IN [facility] [address] [id number] [address] [place] [address] 05 Oct, 2019 Acute non-recurrent frontal sinusitis J01.10 [facility] [address] [id number] [address] [place] [address] 27 Sep, 2019 Generalized anxiety disorder F41.1 and Bereavement Z63.4 [facility] [address] [id number] [address] [place] [address] 17 Sep, 2019 [facility] [address] [id number] [address] [place] [address] Sep, Generalized anxiety disorder F41.1 and Bereavement Z63.4 [facility] [address] [id number] [address] [place] [address] Aug, Generalized anxiety disorder F41.1 and Bereavement Z63.4 [facility] [address] [id number] [address] [place] [address] Aug, Generalized anxiety disorder F41.1 [facility] [address] [facility] [id number] [address] [place] [address] 06 Aug, 2019 Viral upper respiratory trac t infection J06.9 [facility] [address] [id number] [address] [place] [address] Jul, Generalized anxiety disorder F41.1 and Bereavement Z63.4 [facility] [address] [id number] [address] [place] [address] Jul, Acute non-recurrent frontal sinusitis J01.10 [facility] [address] [id number] [address] [place] [address] Jul, [facility] [address] [facility] [id number] [address] [place] [address] Jul, Sore throat J02.9 and Uvulit is K12.2 [facility] [address] [facility] [id number] [address] [place] [address] Jul, Generalized anxiety disorder F41.1 [facility] [address] [id number] [place] [address] Jul, Caries K02.9 [facility] [address] [facility] [id number] [address] [place] [address] Jun, Generalized anxiety disorder F41.1 [facility] [address] [facility] [id number] [address] [place] [address] Jun, Generalized anxiety disorder F41.1 and Bereavement Z63.4 [facility] [address] [facility] [id number] [address] [place] [address] May, Generalized anxiety disorder F41.[address] [facility] [address] [id number] [address] [place] [address] May, Dysuria R30.0 [facility] [address] [facility] [id number] [address] [place] [address] May, Generalized anxiety disorder F41.1 and Bereavement Z63.4 [facility] [address] [facility] [id number] [address] [place] [address] May, [facility] [address] [facility] [id number] [address] [place] [address] Apr, Generalized anxiety disorder F41.1 and Bereavement Z63.4 [facility] [address] [id number] [address] [place] [address] Apr, Generalized anxiety disorder F41.1 [facility] [address] [id number] [address] [address] Mar, Caries K02.9 ; Dental examin ation Z01.20 ; Periodontitis K05.30 and Oral health maintenance status requiring routine preventive dental care K08.9 [facility] [address] [id number] [address] [place] [address] Mar, Generalized anxiety disorder F41.1 [facility] [address] [id number] [address] [place] [address] Mar, Gastrointestinal hemorrhage associated with gastroduodenitis K29.91 [facility] [address] [facility] [id number] [address] [place] [address] Mar, Generalized anxiety disorder F41.1 and Bereavement Z63.4 [facility] [address] [facility] [id number] [address] [place] [address] Mar, [facility] [address] [facility] [id number] [address] [place] [address] Mar, [facility] [address] [facility] [id number] [address] [place] [address] Mar, [facility] [address] [facility] [id number] [address] [place] [address] Mar, Tachycardia R00.0 and Essent ial hypertension I10 [facility] [address] [id number] [address] [place] [address] Feb, Generalized anxiety disorder F41.1 [facility] [address] [facility] [id number] [address] [place] [address] Feb, Generalized anxiety disorder F41.1 and Bereavement Z63.4 [facility] [address] [facility] [id number] [address] [place] [address] Feb, Generalized anxiety disorder F41.1 [facility] [address] [facility] [id number] [address] [place] [address] Feb, Generalized anxiety disorder F41.1 and Bereavement Z63.4 [facility] [address] [facility] [id number] [address] [place] [address] Jan, [facility] [address] [facility] [id number] [address] [place] [address] Jan, Breast cancer screening by trenton crenshaw Z12.31 [facility] [address] [facility] [id number] [address] [place] [address] Jan, Generalized anxiety disorder F41.1 and Bereavement Z63.4 [facility] [address] [facility] [id number] [address] [place] [address] Jan, [facility] [address] [facility] [id number] [address] [place] [address] December, Generalized anxiety disorder F41.1 and Bereavement Z63.4 [facility] [address] [facility] [id number] [address] [place] [address] December, Diverticulitis K57.92 ; Dysu nick R30.0 ; Other constipation K59.09 and Lower abdominal pain R10.[address] [facility] WALK IN [facility] [address] [facility] [id number] [address] [place] [address] Nov, Diverticulitis K57.92 [facility] [address] [facility] [id number] [address] [place] [address] Nov, Generalized anxiety disorder F41.1 and Bereavement Z63.4 [facility] [address] [facility] [id number] [address] [place] [address] Nov, Generalized anxiety disorder F41.1 and Bereavement Z63.4 [facility] [address] [facility] [id number] [address] [place] [address] Nov, Diverticulitis K57.[address] [facility] [address] [facility] [id number] [address] [place] [address] Oct, Diverticulitis K57.92 [facility] [address] [facility] [id number] [address] [place] [address] Oct, Diverticulitis K57.92 [facility] [address] [facility] [id number] [address] [place] [address] Oct, Generalized anxiety disorder F41.[address] [facility] [address] [facility] [id number] [address] [place] [address] Oct, Right lower quadrant abdomin al pain R10.31 and Diverticulitis K57.92 [facility] [address] [facility] [id number] [address] [place] [address] Sep, Generalized anxiety disorder F41.1 and Bereavement Z63.4 [facility] [address] [facility] [id number] [address] [place] [address] Aug, [facility] [address] [facility] [id number] [address] [place] [address] Aug, Generalized anxiety disorder F41.1 and Bereavement Z63.4 [facility] [address] [id number] [place], [place] [address] Aug, Caries K02.9 [facility] [address] [facility] [id number] [address] [place] [address] Jul, Generalized anxiety disorder F41.1 and Bereavement Z63.4 [facility] [address] [facility] [id number] [address] [place] [address] Jul, Other acute gastritis withou t hemorrhage K29.00 ; Generalized anxiety disorder F41.1 ; Tachycardia R00.0 and Essential hypertension I10 [facility] [address] [facility] [id number] [address] [place] [address] Jul, Generalized anxiety disorder F41.1 and Bereavement Z63.4 [place] [address] [facility] [id number] [address] [place] [address] Jun, Generalized anxiety disorder F41.1 and Bereavement Z63.4 [facility] [address] [facility] [id number] [address] [place] [address] Jun, Generalized anxiety disorder F41.1 and Bereavement Z63.4 [facility] [address] [facility] [id number] [address] [address] 02 Jun, 2018 Dental examination Z01.20 [facility] [address] [facility] [id number] [address] [place] [address] May, Generalized anxiety disorder F41.1 and Bereavement Z63.4 [facility] [address] [facility] [id number] [address] [place] [address] 08 May, 2018 Encounter for immunization Z 23 [facility] [address] [facility] [id number] [address] [place] [address] 08 May, 2018 Generalized anxiety disorder F41.1 and Bereavement Z63.4 [facility] [address] [facility] [id number] [address] [place] [address] May, [facility] [address] [facility] [id number] [address] [place] [address] 24 Apr, 2018 Generalized anxiety disorder F41.1 and Bereavement Z63.4 [facility] [address] [facility] [id number] [address] [place] [address] 17 Apr, 2018 [facility] [address] [facility] [id number] [address] [place] [address] 13 Apr, 2018 Diverticulitis K57.92 [facility] [address] [facility] [id number] [address] [place] [address] 10 Apr, 2018 Generalized anxiety disorder F41.1 and Bereavement Z63.4 [facility] [address] [facility] [id number] [address] [place] [address] Mar, [facility] [address] [facility] [id number] [address] [place] [address] Mar, Diverticulitis K57.92 [facility] [address] [facility] [id number] [address] [place] [address] Mar, Generalized anxiety disorder F41.1 and Bereavement Z63.4 [facility] [address] [facility] [id number] [address] [place] [address] Mar, Hypertension I10 [facility] [address] [facility] [id number] [address] [place] [address] Mar, Generalized anxiety disorder F41.1 and Bereavement Z63.4 [facility] [address] [facility] [id number] [address] [place] [address] Feb, Generalized anxiety disorder F41.1 and Bereavement Z63.4 [facility] [address] [facility] [id number] [address] [place] [address] Feb, [facility] [address] [facility] [id number] [address] [place] [address] Feb, Generalized anxiety disorder F41.1 and Bereavement Z63.4 [facility] [address] [facility] [id number] [address] [place] [address] Feb, Generalized anxiety disorder F41.1 and Bereavement Z63.4 [facility] [address] [facility] [id number] [address] [place] [address] Jan, Hypertension I10 and Acute n on-recurrent maxillary sinusitis J01.00 [facility] [address] [facility] [id number] [address] [place] [address] December, [facility] [address] [facility] [id number] [address] [place] [address] December, Hypertension I10 [facility] [address] [facility] [id number] [address] [place] [address] December, Generalized anxiety disorder F41.1 [facility] [address] [id number] [place], [place] [address] 16 Oct, 2017 Encounter for dental examina tion Z01.20 [facility] [address] [id number] [address] [place] [address] 06 Oct, 2017 Encounter for dental examina tion Z01.20 [facility] [address] [id number] [place], [place] [address] 02 Oct, 2017 Dental examination Z01.20 [facility] [address] [id number] [address] [place] [address] Oct, Generalized anxiety disorder F41.1 [facility] [address] [id number] [address] [place] [address] Aug, Dental examination Z01.20 [facility] [address] [id number] [address] [place] [address] Aug, Generalized anxiety disorder F41.1 [facility] [address] [id number] [address] [place] [address] Aug, [facility] [address] [id number] [address] [place] [address] 09 Aug, 2017 Encounter for dental examina tion Z01.20 [facility] [address] [id number] [address] [place] [address] Aug, Subacute maxillary sinusitis J01.00 [facility] [address] [id number] [address] [place] [address] Jul, Dental examination Z01.20 [facility] [address] [id number] [address] [place] [address] Jul, Generalized anxiety disorder F41.1 [facility] [address] [id number] [address] [place] [address] Jul, Diverticulitis K57.92 [facility] [address] [id number] [address] [place] [address] 28 Jun, 2017 Encounter for immunization Z 23 [facility] [address] [id number] [address] [place] [address] 22 Jun, 2017 Dental examination Z01.20 [facility] [address] [id number] [address] [place] [address] 14 Jun, 2017 Generalized anxiety disorder F41.1 [facility] [address] [id number] [address] [place] [address] 07 Jun, 2017 Dental examination Z01.20 [facility] [address] [id number] [address] [place] [address] May, [facility] [address] [id number] [address] [place] [address] [id number] May, Dental examination Z01.20 [facility] [address] [id number] [address] [place] [id number] May, Dental examination Z01.20 [facility] [address] [id number] [address] [place] [address] May, Dental examination Z01.20 [facility] [address] [id number] [address] [place] [address] May, [facility] [address] [id number] [address] [place] [address] May, Generalized anxiety disorder F41.1 [facility] [address] [id number] [address] [place] [address] 05 May, 2017 Localized edema R60.0 ; Yeas t vaginitis B37.3 and Gastroesophageal reflux disease with esophagitis K21.0 [facility] [address] [id number] [address] [place] [address] [id number] Apr, Dental examination Z01.20 [facility] [address] [id number] [address] [place] [address] Apr, Dental examination Z01.20 [facility] [address] [id number] [address] [address] 05 Apr, 2017 Dental examination Z01.20 [facility] [address] [id number] [address] [place] [address] Mar, Dyspepsia R10.13 [facility] [address] [id number] [address] [place] [address] Mar, Generalized anxiety disorder F41.1 [facility] [address] [id number] [place] [address] Mar, Encounter for dental examina tion Z01.20 [facility] [address] [id number] [address] [place] [address] [id number] Mar, [facility] [address] [id number] [address] [place] [address] [id number] Mar, Dental examination Z01.20 [facility] [address] [id number] [address] [place] [address] Feb, Hypertension I10 and Tachyca rdia R00.0 [facility] [address] [id number] [place] [address] Feb, [facility] [address] [id number] [address] [place] [address] Feb, Generalized anxiety disorder F41.1 [facility] [address] [id number] [address] [place] [id number] Feb, Dental examination Z01.20 [facility] [address] [id number] [address] [place] [address] Jan, Generalized anxiety disorder F41.1 [facility] [address] [id number] [address] [place] [address] December, Generalized anxiety disorder F41.1 [facility] [address] [id number] [address] [place] [address] [id number] December, Encounter for dental examina tion Z01.20 [facility] [address] [facility] [id number] [address] [place] [phone] Nov, [facility] [address] [facility] [id number] [place] [phone] Nov, [facility] [address] [facility] [id number] [address] [place] [phone] Nov, Generalized anxiety disorder F41.1 [facility] [address] [facility] [id number] [address] [place] [phone] 30 Oct, 2016 [facility] [address] [facility] [id number] [address] [place] [address] [id number] Oct, Dental examination Z01.20 [facility] [address] [place] [id number] [address] [place] [phone] Oct, Vaginal dryness N89.8 [facility] [address] [phone] Oct, Pseudoseizures F44.5 [facility] [address] [place] [id number] [address] [place] [phone] Oct, Generalized anxiety disorder F41.1 [facility] [address] [place] [id number] [address] [place] [phone] 28 Sep, 2016 Abnormal uterine bleeding (A UB) N93.9 ; Vaginal dryness N89.8 and Screening breast examination Z12.39 [facility] [address] [place] [id number] [address] [place] [phone] Sep, Dental examination Z01.20 [facility] [address] [place] [id number] [address] [place] [phone] Sep, Generalized anxiety disorder F41.1 [facility] [address] [place] [id number] [address] [place] [phone] 06 Sep, 2016 Unspecified ovarian cyst, ri ght side N83.201 ; Unspecified ovarian cyst, left side N83.202 ; Yeast infection of the vagina B37.3 ; Mitral valve prolapse I34.1 and Hypertension I10 [facility] [address] [id number] [address] [place] [phone] 18 Aug, 2016 Generalized anxiety disorder F41.1 [facility] [address] [id number] [address] [place] [phone] 28 Jul, 2016 [facility] [address] [id number] [address] [place] [phone] Jul, Generalized anxiety disorder F41.1 [facility] [address] [id number] [address] [place] [phone] Jun, Generalized anxiety disorder F41.1 [facility] [address] [id number] [address] [place] [phone] 28 May, 2016 Encounter for immunization Z 23 [facility] [address] [facility] [id number] [address] [place] [id number] 17 May, 2016 Generalized anxiety disorder F41.1 and Depressive disorder, not elsewhere classified F32.9 [facility] [address] [id number] [address] [place] [address] 28 Apr, 2016 Hypertension I10 [facility] [address] [id number] [address] [place] [address] 22 Apr, 2016 Cervicalgia M54.[address] [facility] [address] [facility] [id number] [address] [place] [address] 12 Apr, 2016 Cervicalgia M54.2 [facility] [address] [facility] [id number] [address] [place] [address] 09 Mar, 2016 Generalized anxiety disorder F41.1 and Depressive disorder, not elsewhere classified F32.9 [facility] [address] [id number] [address] [place] [id number] 14 Feb, 2016 Visit for dental examination Z01.20 [facility] [address] [id number] [address] [place] [address] 11 Feb, 2016 Pseudoseizures F44.5 ; Migra ine without status migrainosus, not intractable, unspecified migraine type G43.909 and Essential hypertension I10 [facility] [address] [id number] [place] [id number] 06 Feb, 2016 Dental examination Z01.20 [facility] [address] [facility] [id number] [address] [place] [id number] 05 Feb, 2016 Generalized anxiety disorder F41.1 and Depressive disorder, not elsewhere classified F32.9 [facility] [address] [facility] [id number] [address] [place] [address] Jan, Tachycardia R00.0 [facility] [address] [facility] [id number] [address] [place] [address] December, Eustachian tube dysfunction, bilateral H69.83 [facility] [address] [facility] [id number] [address] [place] [address] December, Generalized anxiety disorder F41.1 and Depressive disorder, not elsewhere classified F32.9 [facility] [address] [facility] [id number] [address] [place] [address] Nov, [facility] [address] [facility] [id number] [address] [place] [address] 28 Nov, 2015 [facility] [address] [facility] [id number] [address] [place] [address] 20 Nov, 2015 Hypertension I10 ; Onychomyc [...] and Complex cyst of left ovary N83.29 [facility] [address] [facility] [id number] [address] [place] [address] 14 Nov, 2016 Sinusitis J32.9 [facility] [address] [place] [id number] [address] [place] [address] Oct, Complex cyst of left ovary N 83.29 [place] [address] [address] Oct, Onychomycosis B35.1 [facility] [address] [facility] [id number] [address] [place] [id number] Oct, Dental examination Z01.20 [place] [address] [address] 09 Oct, 2015 Well woman exam Z01.419 [...] History of colon polyps Z86.010 [place] [address] [address] Oct, Generalized anxiety disorder F41.1 and Depressive disorder, not elsewhere classified F32.9 [place] [address] [address] Sep, Hypertension I10 and Onychom ycosis B35.1 [place] [address] [address] Sep, Skin tags, multiple acquired L91.8 [place] [address] [address] Aug, [place] [address] [address] Aug, [place] [address] [address] Aug, [place] [address] [address] [facility] [id number] [address] [place] [address] Aug, Generalized anxiety disorder F41.1 and Depressive disorder, not elsewhere classified F32.9 [facility] [address] [facility] [id number] [address] [place] [address] Jul, Skin lesion L98.9 [facility] [address] [facility] [id number] [address] [place] [address] Jun, Generalized anxiety disorder F41.1 and Depressive disorder, not elsewhere classified F32.9 [facility] [address] [facility] [id number] [address] [place] [address] Jun, [facility] [address] [facility] [id number] [address] [place] [address] Jun, Generalized anxiety disorder F41.1 [facility] [address] [facility] [id number] [address] [place] [address] May, Encounter for immunization Z 23 and Right shoulder pain M25.511 [facility] [address] [facility] [id number] [address] [place] [address] Apr, [facility] [address] [facility] [id number] [address] [place] [address] 14 Apr, 2015 Generalized anxiety disorder 300.02 and Depressive disorder, not elsewhere classified 311 [facility] [address] [id number] [address] [place] [address] [id number] Mar, Dental examination V72.2 [facility] [address] [facility] [id number] [address] [place] [address] Mar, Generalized anxiety disorder 300.02 and Depressive disorder, not elsewhere classified 311 [facility] [address] [facility] [id number] [address] [place] [address] Mar, Depression, major, recurrent , 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.35 and 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 [facility] [address] [facility] [id number] [address] [place] [address] Feb, Generalized anxiety disorder 300.02 and Depressive disorder, not elsewhere classified 311 [facility] [address] [id number] [address] [place] [id number] 07 Feb, 2015 Dental examination V72.2 [facility] [address] [id number] [address] [place] [address] 09 Jan, 2015 Generalized anxiety disorder 300.02 and Depressive disorder, not elsewhere classified 311 [facility] [address] [id number] [address] [place] [address] Jan, [facility] [address] [id number] [address] [place] [address] December, Generalized anxiety disorder 300.02 and Depressive disorder, not elsewhere classified 311 [facility] [address] [facility] [id number] [address] [place] [address] December, Major depressive disorder, r ecurrent, unspecified 296.30 and Panic disorder with agoraphobia 300.21 [facility] [address] [facility] [id number] [address] [place] [address] Nov, [facility] [address] [facility] [id number] [address] [place] [address] Nov, [facility] [address] [facility] [id number] [address] [place] [address] Oct, [facility] [address] [facility] [id number] [address] [place] [address] Oct, [facility] [address] [facility] [id number] [address] [place] [address] Oct, [facility] [address] [facility] [id number] [address] [place] [address] Oct, [facility] [address] [facility] [id number] [address] [place] [address] Sep, [facility] [address] [facility] [id number] [address] [place] [address] Sep, [facility] [address] [id number] [address] [place] [address], [place] [address] Sep, 2014 [facility] [address] [id number] [address] [place] [address], [place] [address] Sep, 2014 [facility] [address] [id number] [address] [place] [address], [place] [address] Sep, 2014 [facility] [address] [id number] [address] [place] [address], [place] [address] Sep, 2014 [facility] [address] [id number] [address] [place] [address], [place] [address] Sep, 2014 [facility] [address] [id number] [address] [place] [address], [place] [address] Sep, 2014 [facility] [address] [id number] [address] [place] [address], [place] [address] Sep, 2014 [facility] [address] [id number] [address] [place] [address], [place] [address] Sep, [facility] [address] [id number] [address] [place] [address], [place] [address] Aug, [facility] [address] [id number] [address] [place] [address], [place] [address] Aug, [facility] [address] [id number] [address] [place] [address], [place] [address] Jul, [facility] [address] [id number] [address] [place] [address], [place] [address] Jul, [facility] [address] [id number] [address] [place] [address], [place] [address] 18 Jul, 2014 [facility] [address] [id number] [address] [place] [address], [place] [address] Jul, [facility] [address] [id number] [address] [place] [address], [place] [address] 11 Jul, 2014 [facility] [address] [id number] [place] [address] Jul, [facility] [address] [id number] [address] [place] [address], [place] [address] Jul, [facility] [address] [id number] [address] [place] [address], [place] [address] Jul, [facility] [address] [id number] [address] [place] [address], [place] [address] Jul, [facility] [address] [id number] [address] [place] [address], [place] [address] Jul, [facility] [address] [id number] [address] [place] [address], [place] [address] Jul, [facility] [address] [id number] [address] [place] [address], [place] [address] Jul, [facility] [address] [id number] [address] [place] [address], [place] [address] Jun, [facility] [address] [id number] [address] [place] [address], [place] [address] Jun, [facility] [address] [id number] [address] [place] [address], [place] [address] May, [facility] [address] [id number] [address] [place] [address], [place] [address] May, [facility] [address] [id number] [address] [place] [address], [place] [address] May, [facility] [address] [id number] [address] [place] [address] May, [facility] [address] [id number] [address] [place] [address], [place] [address] May, [facility] [address] [id number] [address] [place] [address], [place] [address] May, [facility] [address] [id number] [address] [place] [address], [place] [address] May, [facility] [address] [id number] [address] [place] [address], [place] [address] May, [facility] [address] [id number] [address] [place] [address], [place] [address] May, [facility] [address] [id number] [address] [place] [address], [place] [address] May, [facility] [address] [id number] [address] [place] [address], [place] [address] May, [facility] [address] [id number] [address] [place] [address], [place] [address] May, [facility] [address] [id number] [address] [place] [address], [place] [address] Apr, [facility] [address] [id number] [address] [place] [address], [place] [address] Apr, [facility] [address] [id number] [address] [place] [address], [place] [address] Apr, [facility] [address] [id number] [address] [place] [address], [place] [address] Apr, [facility] [address] [id number] [address] [place] [address], [place] [address] Apr, [facility] [address] [id number] [address] [place] [address], [place] [address] Apr, [facility] [address] [id number] [address] [place] [address], [place] [address] Feb, [facility] [address] [id number] [address] [place] [address], [place] [address] Feb, [facility] [address] [id number] [address] [place] [address], [place] [address] Feb, [facility] [address] [id number] [address] [place] [address], [place] [address] Feb, [facility] [address] [id number] [address] [place] [address], [place] [address] Feb, [facility] [address] [id number] [address] [place] [address], [place] [address] Feb, [facility] [address] [id number] [address] [place] [address], [place] [address] Jan, [facility] [address] [id number] [address] [place] [address], [place] [address] Jan, [facility] [address] [id number] [address] [place] [address], [place] [address] Jan, [facility] [address] [id number] [address] [place] [address], [place] [address] Jan, [facility] [address] [id number] [address] [place] [address], [place] [address] Jan, [facility] [address] [id number] [address] [place] [address], [place] [address] Jan, [facility] [address] [id number] [address] [place] [address], [place] [address] Jan, [facility] [address] [id number] [address] [place] [address], [place] [address] Jan, [facility] [address] [id number] [address] [place] [address], [place] [address] December, [facility] [address] [id number] [address] [place] [address], [place] [address] December, [facility] [address] [id number] [address] [place] [address], [place] [address] December, [facility] [address] [id number] [address] [place] [address], [place] [address] December, [facility] [address] [id number] [address] [place] [address], [place] [address] Nov, [facility] [address] [id number] [address] [place] [address], [place] [address] Nov, [facility] [address] [id number] [address] [place] [address] Nov, [facility] [address] [id number] [address] [place] [address], [place] [address] Nov, [facility] [address] [id number] [address] [place] [address], [place] [address] Nov, [facility] [address] [id number] [address] [place] [address], [place] [address] Nov, [facility] [address] [id number] [address] [place] [address], [place] [address] Nov, [facility] [address] [id number] [address] [place] [address], [place] [address] Nov, [facility] [address] [id number] [address] [place] [address], [place] [address] Oct, [facility] [address] [id number] [address] [place] [address], [place] [address] Oct, [facility] [address] [id number] [address] [place] [address], [place] [address] Sep, [facility] [address] [id number] [address] [place] [address], [place] [address] Sep, [facility] [address] [id number] [address] [place] [id number] Sep, [facility] [address] [id number] [address] [place] [address], [place] [address] Sep, [facility] [address] [id number] [address] [place] [address] Sep, [facility] [address] [id number] [address] [place] [address], [place] [address] Sep, [facility] [address] [id number] [address] [place] [address], [place] [address] Aug, [facility] [address] [id number] [address] [place] [address] Aug, [facility] [address] [id number] [address] [place] [address], [place] [address] Aug, [facility] [address] [id number] [address] [place] [address], [place] [address] Aug, [facility] [address] [id number] [address] [place] [address], [place] [address] Jul, [facility] [address] [id number] [address] [place] [address], [place] [address] Jul, [facility] [address] [id number] [address] [place] [address], [place] [address] Jul, [facility] [address] [id number] [address] [place] [address], [place] [address] Jul, [facility] [address] [id number] [address] [place] [address], [place] [address] Jun, [facility] [address] [id number] [address] [place] [address], [place] [address] Jun, [facility] [address] [id number] [address] [place] [address], [place] [address] May, [facility] [address] [id number] [address] [place] [address], [place] [address] May, [facility] [address] [id number] [address] [place] [address], [place] [address] May, [facility] [address] [id number] [address] [place] [address], [place] [address] May, [facility] [address] [id number] [address] [place] [address], [place] [address] 10 May, 2013 [facility] [address] [id number] [address] [place] [address], [place] [address] 17 Apr, 2013 [facility] [address] [id number] [address] [place] [address], [place] [address] 10 Apr, 2013 [facility] [address] [id number] [address] [place] [address], [place] [address] Mar, [facility] [address] [id number] [address] [place] [address], [place] [address] Mar, [facility] [address] [id number] [address] [place] [address], [place] [address] Mar, [facility] [address] [id number] [address] [place] [address], [place] [address] Mar, [facility] [address] [id number] [address] [place] [address], [place] [address] Feb, [facility] [address] [id number] [address] [place] [address], [place] [address] Feb, [facility] [address] [id number] [address] [place] [address], [place] [address] Feb, [facility] [address] [id number] [address] [place] [address], [place] [address] Feb, [facility] [address] [id number] [address] [place] [address], [place] [address] Feb, [facility] [address] [id number] [address] [place] [address], [place] [address] Jan, [facility] [address] [id number] [address] [place] [address], [place] [address] Jan, [facility] [address] [id number] [address] [place] [address], [place] [address] Jan, [facility] [address] [id number] [address] [place] [address], [place] [address] Jan, [facility] [address] [id number] [address] [place] [address], [place] [address] Jan, [facility] [address] [id number] [address] [place] [address], [place] [address] December, [facility] [address] [id number] [address] [place] [address], [place] [address] December, [facility] [address] [id number] [address] [place] [address], [place] [address] 17 Nov, 2012 [facility] [address] [id number] [address] [place] [address], [place] [address] 02 Nov, 2012 [facility] [address] [id number] [address] [place] [address], [place] [address] 19 Oct, 2012 [facility] [address] [id number] [address] [place] [address], [place] [address] 13 Oct, 2012 [facility] [address] [id number] [address] [place] [address], [place] [address] 05 Oct, 2012 [facility] [address] [id number] [address] [place] [address], [place] [address] 14 Sep, 2012 [facility] [address] [id number] [address] [place] [address], [place] [address] 24 Aug, 2012 [facility] [address] [id number] [address] [place] [address], [place] [address] 16 Aug, 2012 [facility] [address] [id number] [address] [place] [address], [place] [address] 15 Aug, 2012 [facility] [address] [id number] [address] [place] [address], [place] [address] Aug, [facility] [address] [id number] [address] [place] [address], [place] [address] Jul, [facility] [address] [id number] [address] [place] [address], [place] [address] Jul, [facility] [address] [id number] [address] [place] [address], [place] [address] Jul, [facility] [address] [id number] [address] [place] [address], [place] [address] Jul, [facility] [address] [id number] [address] [place] [address], [place] [address] Jul, [facility] [address] [id number] [address] [place] [address], [place] [address] Jul, [facility] [address] [id number] [address] [place] [address], [place] [address] Jul, [facility] [address] [id number] [address] [place] [address], [place] [address] Jul, [facility] [address] [id number] [address] [place] [address], [place] [address] Jun, [facility] [address] [id number] [address] [place] [address], [place] [address] Jun, [facility] [address] [id number] [address] [place] [address], [place] [address] Jun, [facility] [address] [id number] [address] [place] [address], [place] [address] Jun, [facility] [address] [id number] [address] [place] [address], [place] [address] Jun, [facility] [address] [id number] [address] [place] [address], [place] [address] Jun, [facility] [address] [id number] [address] [place] [address], [place] [address] May, [facility] [address] [id number] [address] [place] [address], [place] [address] May, [facility] [address] [id number] [address] [place] [address], [place] [address] May, [facility] [address] [id number] [address] [place] [address], [place] [address] May, [facility] [address] [id number] [address] [place] [address], [place] [address] Apr, [facility] [address] [id number] [address] [place] [address], [place] [address] Apr, [facility] [address] [id number] [address] [place] [address], [place] [address] Mar, [facility] [address] [id number] [address] [place] [address] [place] [id number] 28 Jan, 2012 [facility] [address] [id number] [address] [place] [address], [place] [address] 20 Jan, 2012 [facility] [address] [id number] [address] [place] [address], [place] [address] 16 Jan, 2012 [facility] [address] [id number] [address] [place] [address], [place] [address] 15 Jan, 2012 [facility] [address] [id number] [address] [place] [address], [place] [address] 14 Jan, 2012 [facility] [address] [id number] [address] [place] [address], [place] [address] 14 Jan, 2012 [facility] [address] [id number] [address] [place] [address], [place] [id number] 07 Jan, 2012 [facility] [address] [id number] [address] [place] [address], [place] [address] December, [facility] [address] [id number] [address] [place] [address], [place] [address] December, [facility] [address] [id number] [address] [place] [address], [place] [address] 09 Dec, 2011 [facility] [address] [id number] [address] [place] [address], [place] [address] 02 Dec, 2011 [facility] [address] [id number] [address] [place] [address], [place] [address] 25 Nov, 2011 [facility] [address] [id number] [address] [place] [address], [place] [id number] 05 Nov, 2011 [facility] [address] [id number] [address] [place] [address], [place] [address] 29 Oct, 2011 [facility] [address] [id number] [address] [place] [address], [place] [address] 28 Oct, 2011 [facility] [address] [id number] [address] [place] [address], [place] [address] 15 Oct, 2011 [facility] [address] [id number] [address] [place] [address], [place] [address] Sep, [facility] [address] [id number] [address] [place] [address], [place] [address] Sep, [facility] [address] [id number] [address] [place] [address], [place] [address] Sep, [facility] [address] [id number] [address] [place] [address], [place] [address] Aug, [facility] [address] [id number] [address] [place] [address], [place] [address] Aug, [facility] [address] [id number] [address] [place] [address], [place] [address] Aug, [facility] [address] [id number] [address] [place] [address], [place] [address] Aug, [facility] [address] [id number] [address] [place] [address], [place] [address] Aug, [facility] [address] [id number] [address] [place] [address], [place] [address] Aug, [facility] [address] [id number] [address] [place] [address], [place] [address] Aug, [facility] [address] [id number] [address] [place] [address], [place] [address] Jul, [facility] [address] [id number] [address] [place] [address], [place] [address] Jul, [facility] [address] [id number] [address] [place] [address], [place] [address] Jun, [facility] [address] [id number] [address] [place] [address], [place] [address] Jun, [facility] [address] [id number] [address] [place] [address], [place] [address] 17 Jun, 2011 [facility] [address] [id number] [address] [place] [id number] 15 Jun, 2011 [facility] [address] [id number] [address] [place] [address], [place] [address] 14 Jun, 2011 [facility] [address] [id number] [address] [place] [address] 14 Jun, 2011 [facility] [address] [id number] [address] [place] [address] 07 Jun, 2011 [facility] [address] [id number] [address] [place] [id number] 07 Jun, 2011 [facility] [address] [id number] [address] [place] [address], [place] [address] Jun, [facility] [address] [id number] [address] [place] [address], [place] [address] Jun, [facility] [address] [id number] [address] [place] [address], [place] [address] May, [facility] [address] [id number] [address] [place] [address], [place] [address] May, [facility] [address] [id number] [address] [place] [address] May, [facility] [address] [id number] [address] [place] [id number] 24 May, 2011 [facility] [address] [id number] [address] [place] [id number] 18 May, 2011 [facility] [address] [id number] [address] [place] [address] May, [facility] [address] [id number] [address] [place] [address], [place] [address] Feb, [facility] [address] [id number] [address] [place] [address] December, [facility] [address] [id number] [address] [place] [address], [place] [address] Jul, [facility] [address] [id number] [address] [place] [id number] 29 Jul, 2010 [facility] [address] [id number] [address] [place] [address] Jul, [facility] [address] [id number] [address] [place] [address] Jul, [facility] [address] [id number] [address] [place] [address] Jun, [facility] [address] [id number] [address] [place] [address] Jul, [facility] [address] [id number] [address] [place] [id number] Jul, [facility] [address] [id number] [address] [place] [id number] Jul, [facility] [address] [id number] [address] [place] [address] Jul, [facility] [address] [id number] [address] [place] [address] Jul, [facility] [address] [id number] [address] [place] [address] Jul, [facility] [address] [id number] [address] [place] [id number] Jan, [facility] [address] [id number] [address] [place] [id number] 16 Sep, 2008 [facility] [address] [id number] [address] [place] [address] Sep, IMMUNIZATIONS No Known Immunizations SOCIAL HISTORY Never Assessed REASON FOR VISIT PLAN OF CARE VITAL SIGNS MEDICATIONS Unknown Medications RESULTS No Results PROCEDURES Procedure Date Ordered Result Body Site PSYTX PT&/FAMILY 45 MINUTES Aug 12, 2014 INSTRUCTIONS MEDICATIONS ADMINISTERED No Known Medications MEDICAL [...]
--- OUTSIDE RECORDS SUMMARY | 2020-01-27 10:02 | XMS REPORT ---
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 Role Phone LETTY WILKINS Unavailable PROBLEMS Type Condition ICD9-CM Code JTG13-HV Code Onset Dates Condition S tatus SNOMED Code Problem Hypertension I10 Active 9795815 3 Problem Generalized anxiety disorder F41.1 A ctive 424674196 Problem History of colon polyps Z86.010 Active 238912696 Problem History of diverticulitis Z87.19 Acti ve 342066303132515 Problem Family history of diabetes mellitus Z83.3 Active 247391074 Problem Excessive and frequent menstruation with irregular cycle N92.1 Active 094614594 Problem Hot flashes N95.1 Active 23919557 8 Problem Gastroesophageal reflux disease with esophagitis K 21.0 Active 046740686 Problem History of ovarian cyst Z87.42 Active 28891907 Problem Diverticulitis K57.92 Active 14706 6006 Problem Dense breast tissue R92.2 Active 337628799 Problem Perimenopausal N95.1 Active 92781 9293221839 Problem Mitral valve prolapse I34.1 Active 888768079 Problem Abnormal uterine bleeding (AUB) N93.9 Active [id number] Problem Tachycardia R00.0 Active 9971594 ALLERGIES No Information ENCOUNTERS Encounter Location Date Diagnosis [facility] [address] [facility] [id number] [address] [place] [phone] December, [facility] [address] [facility] [id number] [address] [place] [phone] Nov, [place] [address] [facility] [id number] [address] [place] [phone] 16 Nov, 2019 Generalized anxiety disorder F41.1 and Bereavement Z63.4 [place] [address] [facility] [id number] [address] [place] [phone] Nov, [facility] [address] [id number] [address] [place] [id number] Nov, [facility] [address] [id number] [address] [place] [id number] 06 Nov, 2019 Generalized anxiety disorder F41.1 [facility] [address] [id number] [address] [place] [id number] 30 Oct, 2019 Generalized anxiety disorder F41.1 and Bereavement Z63.4 [facility] [address] [id number] [address] [place] [id number] 16 Oct, 2019 Acute non-recurrent sinusiti s, unspecified location J01.90 [facility] [address] [id number] [address] [place] [id number] 05 Oct, 2019 Acute non-recurrent frontal sinusitis J01.10 [facility] [address] [id number] [address] [place] [phone] 27 Sep, 2019 Generalized anxiety disorder F41.1 and Bereavement Z63.4 [facility] [address] [id number] [address] [place] [phone] 17 Sep, 2019 [facility] [address] [id number] [address] [place] [id number] 11 Sep, 2019 Generalized anxiety disorder F41.1 and Bereavement Z63.4 [facility] [address] [id number] [address] [place] [phone] Aug, Generalized anxiety disorder F41.1 and Bereavement Z63.4 [facility] [address] [id number] [address] [place] [phone] Aug, Generalized anxiety disorder F41.1 [facility] [address] [facility] [id number] [address] [place] [phone] 06 Aug, 2019 Viral upper respiratory trac t infection J06.9 [facility] [address] [id number] [address] [place] [phone] Jul, Generalized anxiety disorder F41.1 and Bereavement Z63.4 [facility] [address] [facility] [id number] [address] [place] [id number] Jul, Acute non-recurrent frontal sinusitis J01.10 [facility] [address] [facility] [id number] [address] [place] [phone] Jul, [facility] [address] [facility] [id number] [address] [place] [phone] Jul, Sore throat J02.9 and Uvulit is K12.2 [facility] [address] [facility] [id number] [address] [place] [phone] Jul, Generalized anxiety disorder F41.1 [facility] [address] [id number] [address] [address] Jul, Caries K02.9 [facility] [address] [facility] [id number] [address] [place] [phone] Jun, Generalized anxiety disorder F41.1 [facility] [address] [facility] [id number] [address] [place] [phone] Jun, Generalized anxiety disorder F41.1 and Bereavement Z63.4 [facility] [address] [facility] [id number] [address] [place] [phone] May, Generalized anxiety disorder F41.1 [facility] [address] [facility] [id number] [address] [place] [phone] May, Dysuria R30.0 [facility] [address] [facility] [id number] [address] [place] [phone] May, Generalized anxiety disorder F41.1 and Bereavement Z63.4 [facility] [address] [facility] [id number] [address] [place] [phone] May, [facility] [address] [facility] [id number] [address] [place] [phone] Apr, Generalized anxiety disorder F41.1 and Bereavement Z63.4 [facility] [address] [facility] [id number] [address] [place] [phone] Apr, Generalized anxiety disorder F41.1 [facility] [address] [id number] [address] [place] [address] Mar, Caries K02.9 ; Dental examin ation Z01.20 ; Periodontitis K05.30 and Oral health maintenance status requiring routine preventive dental care K08.9 [facility] [address] [facility] [id number] [address] [place] [id number] Mar, Generalized anxiety disorder F41.1 [facility] [address] [facility] [id number] [address] [place] [phone] Mar, Gastrointestinal hemorrhage associated with gastroduodenitis K29.91 [facility] [address] [facility] [id number] [address] [place] [phone] Mar, Generalized anxiety disorder F41.1 and Bereavement Z63.4 [facility] [address] [facility] [id number] [address] [place] [phone] Mar, [facility] [address] [facility] [id number] [address] [place] [id number] Mar, [facility] [address] [facility] [id number] [address] [place] [phone] Mar, [facility] [address] [facility] [id number] [address] [place] [phone] Mar, Tachycardia R00.0 and Essent ial hypertension I10 [facility] [address] [facility] [id number] [address] [place] [phone] Feb, Generalized anxiety disorder F41.1 [facility] [address] [facility] [id number] [address] [place] [phone] Feb, Generalized anxiety disorder F41.1 and Bereavement Z63.4 [facility] [address] [facility] [id number] [address] [place] [id number] Feb, Generalized anxiety disorder F41.1 [facility] [address] [place] [id number] [address] [place] [phone] Feb, Generalized anxiety disorder F41.1 and Bereavement Z63.4 [facility] [address] [facility] [id number] [address] [place] [phone] Jan, [facility] [address] [place] [id number] [address] [place] [phone] Jan, Breast cancer screening by trenton crenshaw Z12.31 [place] [address] [place] [id number] [place] [phone] Jan, Generalized anxiety disorder F41.1 and Bereavement Z63.4 [facility] [address] [place] [id number] [address] [place] [phone] Jan, [facility] [address] [place] [id number] [address] [place] [id number] December, Generalized anxiety disorder F41.1 and Bereavement Z63.4 [facility] [address] [place] [id number] [address] [place] [id number] December, Diverticulitis K57.92 ; Dysu nick R30.0 ; Other constipation K59.09 and Lower abdominal pain R10.30 [facility] [address] [facility] [id number] [address] [place] [phone] Nov, Diverticulitis K57.92 [facility] [address] [place] [id number] [address] [place] [phone] Nov, Generalized anxiety disorder F41.1 and Bereavement Z63.4 [facility] [address] [place] [id number] [address] [place] [id number] Nov, Generalized anxiety disorder F41.1 and Bereavement Z63.4 [facility] [address] [place] [id number] [address] [place] [phone] Nov, Diverticulitis K57.92 [facility] [address] [facility] [id number] [address] [place] [id number] Oct, Diverticulitis K57.92 [facility] [address] [facility] [id number] [address] [place] [phone] Oct, Diverticulitis K57.92 [facility] [address] [facility] [id number] [address] [place] [id number] Oct, Generalized anxiety disorder F41.1 [facility] [address] [facility] [id number] [address] [place] [phone] Oct, Right lower quadrant abdomin al pain R10.31 and Diverticulitis K57.92 [facility] [address] [facility] [id number] [address] [place] [phone] Sep, Generalized anxiety disorder F41.1 and Bereavement Z63.4 [facility] [address] [facility] [id number] [address] [place] [phone] Aug, [facility] [address] [facility] [id number] [address] [place] [phone] Aug, Generalized anxiety disorder F41.1 and Bereavement Z63.4 [facility] [address] [id number] [address] [address] Aug, Caries K02.9 [facility] [address] [facility] [id number] [address] [place] [phone] Jul, Generalized anxiety disorder F41.1 and Bereavement Z63.4 [facility] [address] [facility] [id number] [address] [place] [phone] Jul, Other acute gastritis withou t hemorrhage K29.00 ; Generalized anxiety disorder F41.1 ; Tachycardia R00.0 and Essential hypertension I10 [facility] [address] [facility] [id number] [address] [place] [phone] Jul, Generalized anxiety disorder F41.1 and Bereavement Z63.4 [facility] [address] [facility] [id number] [address] [place] [phone] Jun, Generalized anxiety disorder F41.1 and Bereavement Z63.4 [facility] [address] [facility] [id number] [address] [place] [phone] Jun, Generalized anxiety disorder F41.1 and Bereavement Z63.4 [facility] [address] [facility] [id number] [address] [address] 02 Jun, 2018 Dental examination Z01.20 [facility] [address] [facility] [id number] [address] [place] [phone] May, Generalized anxiety disorder F41.1 and Bereavement Z63.4 [facility] [address] [facility] [id number] [address] [place] [phone] 08 May, 2018 Encounter for immunization Z 23 [facility] [address] [facility] [id number] [address] [place] [phone] 08 May, 2018 Generalized anxiety disorder F41.1 and Bereavement Z63.4 [facility] [address] [facility] [id number] [address] [place] [phone] May, [facility] [address] [facility] [id number] [address] [place] [phone] 24 Apr, 2018 Generalized anxiety disorder F41.1 and Bereavement Z63.4 [facility] [address] [facility] [id number] [address] [place] [phone] 17 Apr, 2018 [facility] [address] [facility] [id number] [address] [place] [phone] 13 Apr, 2018 Diverticulitis K57.92 [facility] [address] [facility] [id number] [address] [place] [phone] 10 Apr, 2018 Generalized anxiety disorder F41.1 and Bereavement Z63.4 [facility] [address] [facility] [id number] [address] [place] [phone] Mar, [facility] [address] [id number] [address] [place] [phone] Mar, Diverticulitis K57.92 [facility] [address] [id number] [address] [place] [phone] Mar, Generalized anxiety disorder F41.1 and Bereavement Z63.4 [facility] [address] [id number] [address] [place] [phone] Mar, Hypertension I10 [facility] [address] [id number] [address] [place] [phone] Mar, Generalized anxiety disorder F41.1 and Bereavement Z63.4 [facility] [address] [id number] [address] [place] [phone] Feb, Generalized anxiety disorder F41.1 and Bereavement Z63.4 [facility] [address] [id number] [address] [place] [phone] Feb, [facility] [address] [id number] [address] [place] [phone] Feb, Generalized anxiety disorder F41.1 and Bereavement Z63.4 [facility] [address] [id number] [address] [place] [phone] Feb, Generalized anxiety disorder F41.1 and Bereavement Z63.4 [facility] [address] [facility] [id number] [address] [place] [phone] Jan, Hypertension I10 and Acute n on-recurrent maxillary sinusitis J01.00 [facility] [address] [id number] [address] [place] [phone] December, [facility] [address] [id number] [address] [place] [phone] December, Hypertension I10 [facility] [address] [id number] [address] [place] [phone] December, Generalized anxiety disorder F41.1 [facility] [address] [id number] [address] [address] 16 Oct, 2017 Encounter for dental examina tion Z01.20 [facility] [address] [id number] [address] [address] 06 Oct, 2017 Encounter for dental examina tion Z01.20 [facility] [address] [id number] [address] [address] 02 Oct, 2017 Dental examination Z01.20 [facility] [address] [id number] [address] [place] [phone] Oct, Generalized anxiety disorder F41.1 [facility] [address] [id number] [address] [address] Aug, Dental examination Z01.20 [facility] [address] [id number] [address] [place] [phone] Aug, Generalized anxiety disorder F41.1 [facility] [address] [id number] [address] [place] [phone] Aug, [facility] [address] [id number] [address] [place] [phone] 09 Aug, 2017 Encounter for dental examina tion Z01.20 [facility] [address] [id number] [address] [place] [phone] Aug, Subacute maxillary sinusitis J01.00 [facility] [address] [id number] [address] [address] Jul, Dental examination Z01.20 [facility] [address] [id number] [address] [place] [id number] Jul, Generalized anxiety disorder F41.1 [facility] [address] [id number] [address] [place] [id number] Jul, Diverticulitis K57.92 [facility] [address] [id number] [address] [place] [phone] 28 Jun, 2017 Encounter for immunization Z 23 [facility] [address] [id number] [address] [place] [phone] 22 Jun, 2017 Dental examination Z01.20 [facility] [address] [id number] [address] [place] [phone] 14 Jun, 2017 Generalized anxiety disorder F41.1 [facility] [address] [id number] [address] [place] [phone] 07 Jun, 2017 Dental examination Z01.20 [facility] [address] [id number] [address] [place] [phone] May, [facility] [address] [id number] [address] [place] [id number] May, Dental examination Z01.20 [facility] [address] [id number] [place] [address] [id number] May, Dental examination Z01.20 [facility] [address] [id number] [address] [place] [phone] May, Dental examination Z01.20 [facility] [address] [id number] [address] [place] [phone] May, [facility] [address] [id number] [address] [place] [phone] May, Generalized anxiety disorder F41.1 [facility] [address] [id number] [address] [place] [phone] 05 May, 2017 Localized edema R60.0 ; Yeas t vaginitis B37.3 and Gastroesophageal reflux disease with esophagitis K21.0 [facility] [address] [id number] [address] [place] [id number] Apr, Dental examination Z01.20 [facility] [address] [id number] [address] [place] [phone] 21 Apr, 2017 Dental examination Z01.20 [facility] [address] [id number] [address] [address] 05 Apr, 2017 Dental examination Z01.20 [facility] [address] [id number] [address] [place] [phone] Mar, Dyspepsia R10.13 [facility] [address] [id number] [address] [place] [phone] Mar, Generalized anxiety disorder F41.1 [facility] [address] [id number] [address] [place] [phone] Mar, Encounter for dental examina tion Z01.20 [facility] [address] [id number] [address] [place] [address] [id number] Mar, [facility] [address] [id number] [address] [place] [address] [id number] Mar, Dental examination Z01.20 [facility] [address] [id number] [address] [place] [phone] Feb, Hypertension I10 and Tachyca rdia R00.0 [facility] [address] [id number] [address] [place] [phone] Feb, [facility] [address] [id number] [address] [place] [phone] Feb, Generalized anxiety disorder F41.1 [facility] [address] [id number] [address] [place] [id number] Feb, Dental examination Z01.20 [facility] [address] [id number] [address] [place] [phone] Jan, Generalized anxiety disorder F41.1 [facility] [address] [id number] [address] [place] [phone] December, Generalized anxiety disorder F41.1 [facility] [address] [id number] [address] [place] [phone] December, Encounter for dental examina tion Z01.20 [facility] [address] [facility] [id number] [address] [place] [phone] Nov, [facility] [address] [facility] [id number] [address] [place] [phone] Nov, [facility] [address] [facility] [id number] [address] [place] [phone] Nov, Generalized anxiety disorder F41.1 [facility] [address] [facility] [id number] [address] [place] [phone] 30 Oct, 2016 [facility] [address] [facility] [id number] [address] [place] [address] [phone] Oct, Dental examination Z01.20 [facility] [address] [facility] [id number] [address] [place] [phone] Oct, Vaginal dryness N89.8 [facility] [address] [place] [id number] [address] [place] [phone] Oct, Pseudoseizures F44.5 [facility] [address] [facility] [id number] [address] [place] [phone] Oct, Generalized anxiety disorder F41.1 [facility] [address] [facility] [id number] [address] [place] [phone] 28 Sep, 2016 Abnormal uterine bleeding (A UB) N93.9 ; Vaginal dryness N89.8 and Screening breast examination Z12.39 [facility] [address] [facility] [id number] [address] [place] [phone] Sep, Dental examination Z01.20 [facility] [address] [facility] [id number] [address] [place] [phone] Sep, Generalized anxiety disorder F41.1 [facility] [address] [facility] [id number] [address] [place] [phone] 06 Sep, 2016 Unspecified ovarian cyst, ri ght side N83.201 ; Unspecified ovarian cyst, left side N83.202 ; Yeast infection of the vagina B37.3 ; Mitral valve prolapse I34.1 and Hypertension I10 [facility] [address] [id number] [address] [place] [id number] 18 Aug, 2016 Generalized anxiety disorder F41.1 [facility] [address] [id number] [address] [place] [id number] 28 Jul, 2016 [facility] [address] [facility] [id number] [address] [place] [id number] Jul, Generalized anxiety disorder F41.1 [facility] [address] [id number] [address] [place] [id number] 15 Jun, 2016 Generalized anxiety disorder F41.1 [facility] [address] [facility] [id number] [address] [place] [id number] 28 May, 2016 Encounter for immunization Z 23 [facility] [address] [facility] [id number] [address] [place] [id number] 17 May, 2016 Generalized anxiety disorder F41.1 and Depressive disorder, not elsewhere classified F32.9 [facility] [address] [facility] [id number] [address] [place] [id number] 28 Apr, 2016 Hypertension I10 [facility] [address] [facility] [id number] [address] [place] [id number] 22 Apr, 2016 Cervicalgia M54.2 [facility] [address] [facility] [id number] [address] [place] [id number] 12 Apr, 2016 Cervicalgia M54.2 [facility] [address] [facility] [id number] [address] [place] [id number] 09 Mar, 2016 Generalized anxiety disorder F41.1 and Depressive disorder, not elsewhere classified F32.9 [facility] [address] [id number] [address] [place] [id number] 14 Feb, 2016 Visit for dental examination Z01.20 [facility] [address] [facility] [id number] [address] [place] [id number] 11 Feb, 2016 Pseudoseizures F44.5 ; Migra ine without status migrainosus, not intractable, unspecified migraine type G43.909 and Essential hypertension I10 [facility] [address] [id number] [place] [id number] 06 Feb, 2016 Dental examination Z01.20 [facility] [address] [facility] [id number] [address] [place] [id number] 05 Feb, 2016 Generalized anxiety disorder F41.1 and Depressive disorder, not elsewhere classified F32.9 [facility] [address] [facility] [id number] [address] [place] [phone] Jan, Tachycardia R00.0 [place] [address] [facility] [id number] [address] [place] [id number] December, Eustachian tube dysfunction, bilateral H69.83 [facility] [address] [facility] [id number] [address] [place] [id number] December, Generalized anxiety disorder F41.1 and Depressive disorder, not elsewhere classified F32.9 [facility] [address] [facility] [id number] [address] [place] [id number] 29 Nov, 2015 [facility] [address] [facility] [id number] [address] [place] [id number] 28 Nov, 2015 [facility] [address] [facility] [id number] [address] [place] [id number] 20 Nov, 2015 Hypertension I10 ; Onychomyc [...] and Complex cyst of left ovary N83.29 [facility] [address] [facility] [id number] [address] [place] [id number] 14 Nov, 2016 Sinusitis J32.9 [facility] [address] [place] [id number] [address] [place] [id number] Oct, Complex cyst of left ovary N 83.29 [place] [address] [address] Oct, Onychomycosis B35.1 [facility] [address] [place] [id number] [address] [place] [address] [id number] Oct, Dental examination Z01.20 [place] [address] [address] 09 Oct, 2015 Well woman exam Z01.419 [...] R92.2 and History of colon polyps Z86.010 [place] [address] [address] Oct, Generalized anxiety disorder F41.1 and Depressive disorder, not elsewhere classified F32.9 [place] [address] [address] Sep, Hypertension I10 and Onychom ycosis B35.1 [place] [address] [address] Sep, Skin tags, multiple acquired L91.8 [place] [address] [address] Aug, [place] [address] [address] Aug, [place] [address] [address] Aug, [facility] [address] [facility] [id number] [address] [place] [phone] Aug, Generalized anxiety disorder F41.1 and Depressive disorder, not elsewhere classified F32.9 [facility] [address] [facility] [id number] [address] [place] [phone] Jul, Skin lesion L98.9 [facility] [address] [facility] [id number] [address] [place] [phone] Jun, Generalized anxiety disorder F41.1 and Depressive disorder, not elsewhere classified F32.9 [facility] [address] [facility] [id number] [address] [place] [phone] Jun, [facility] [address] [facility] [id number] [address] [place] [phone] Jun, Generalized anxiety disorder F41.1 [facility] [address] [place] [id number] [address] [place] [phone] May, Encounter for immunization Z 23 and Right shoulder pain M25.511 [facility] [address] [facility] [id number] [address] [place] [id number] Apr, [facility] [address] [facility] [id number] [address] [place] [id number] 14 Apr, 2015 Generalized anxiety disorder 300.02 and Depressive disorder, not elsewhere classified 311 [facility] [address] [id number] [address] [place] [address] [id number] Mar, Dental examination V72.2 [facility] [address] [facility] [id number] [address] [place] [phone] Mar, Generalized anxiety disorder 300.02 and Depressive disorder, not elsewhere classified 311 [facility] [address] [facility] [id number] [address] [place] [phone] Mar, Depression, major, recurrent , 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.35 and 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 [facility] [address] [facility] [id number] [address] [place] [id number] Feb, Generalized anxiety disorder 300.02 and Depressive disorder, not elsewhere classified 311 [facility] [address] [id number] [address] [place] [address] [id number] Feb, Dental examination V72.2 [facility] [address] [facility] [id number] [address] [place] [id number] 09 Jan, 2015 Generalized anxiety disorder 300.02 and Depressive disorder, not elsewhere classified 311 [facility] [address] [id number] [address] [place] [phone] Jan, [facility] [address] [facility] [id number] [address] [place] [phone] December, Generalized anxiety disorder 300.02 and Depressive disorder, not elsewhere classified 311 [facility] [address] [facility] [id number] [address] [place] [id number] December, Major depressive disorder, r ecurrent, unspecified 296.30 and Panic disorder with agoraphobia 300.21 [facility] [address] [facility] [id number] [address] [place] [phone] Nov, [facility] [address] [facility] [id number] [address] [place] [phone] Nov, [facility] [address] [facility] [id number] [address] [place] [phone] Oct, [facility] [address] [facility] [id number] [address] [place] [phone] Oct, [facility] [address] [facility] [id number] [address] [place] [id number] Oct, [facility] [address] [facility] [id number] [address] [place] [phone] Oct, [facility] [address] [facility] [id number] [address] [place] [id number] Sep, [facility] [address] [facility] [id number] [address] [place] [phone] Sep, [facility] [address] [id number] [address] [place] [address], [place] [address] Sep, 2014 [facility] [address] [id number] [address] [place] [address], [place] [address] Sep, 2014 [facility] [place] [facility] [address] [id number] [address] [place] [address], [place] [address] Sep, 2014 [facility] [place] [facility] [address] [id number] [address] [place] [address], [place] [address] Sep, 2014 [facility] [address] [id number] [address] [place] [address], [place] [address] Sep, 2014 [facility] [place] [facility] [address] [id number] [address] [place] [address], [place] [address] Sep, 2014 [facility] [address] [id number] [address] [place] [address], [place] [address] Sep, 2014 [facility] [address] [id number] [address] [place] [address], [place] [address] Sep, 2014 [facility] [address] [id number] [address] [place] [address], [place] [address] Aug, [facility] [address] [id number] [address] [place] [address], [place] [address] Aug, [facility] [address] [id number] [address] [place] [address], [place] [address] Jul, [facility] [place] [facility] [address] [id number] [address] [place] [address], [place] [address] Jul, [facility] [place] [address] [id number] [address] [place] [address], [place] [address] 18 Jul, 2014 [facility] [place] [facility] [address] [id number] [address] [place] [address], [place] [address] Jul, [facility] [place] [facility] [address] [id number] [address] [place] [address], [place] [address] 11 Jul, 2014 [facility] [place] [address] [id number] [address] [place] [address] [place] [address] Jul, [facility] [address] [id number] [address] [place] [address], [place] [address] Jul, [facility] [place] [facility] [address] [id number] [address] [place] [address], [place] [address] Jul, [facility] [address] [id number] [address] [place] [address], [place] [address] Jul, [facility] [place] [facility] [address] [id number] [address] [place] [address], [place] [address] Jul, [facility] [address] [id number] [address] [place] [address], [place] [address] Jul, [facility] [address] [id number] [address] [place] [address], [place] [address] Jul, [facility] [address] [id number] [address] [place] [address], [place] [address] Jun, [facility] [address] [id number] [address] [place] [address], [place] [address] Jun, [facility] [address] [id number] [address] [place] [address], [place] [address] May, [facility] [address] [id number] [address] [place] [address], [place] [address] May, [facility] [place] [facility] [address] [id number] [address] [place] [address], [place] [address] May, [facility] [place] [facility] [address] [id number] [address] [place] [address], [place] [address] May, [facility] [place] [facility] [address] [id number] [address] [place] [address], [place] [address] May, [facility] [place] [facility] [address] [id number] [address] [place] [address], [place] [address] May, [facility] [place] [facility] [address] [id number] [address] [place] [address], [place] [address] May, [facility] [place] [facility] [address] [id number] [address] [place] [address], [place] [address] May, [facility] [place] [facility] [address] [id number] [address] [place] [address], [place] [address] May, [facility] [place] [facility] [address] [id number] [address] [place] [address], [place] [address] May, [facility] [place] [facility] [address] [id number] [address] [place] [address], [place] [address] May, [facility] [place] [facility] [address] [id number] [address] [place] [address], [place] [address] May, [facility] [place] [facility] [address] [id number] [address] [place] [address], [place] [address] Apr, [facility] [place] [facility] [address] [id number] [address] [place] [address], [place] [address] 30 Apr, 2014 [facility] [place] [facility] [address] [id number] [address] [place] [address], [place] [address] Apr, [facility] [place] [facility] [address] [id number] [address] [place] [address], [place] [address] Apr, [facility] [place] [facility] [address] [id number] [address] [place] [address], [place] [address] Apr, [facility] [place] [facility] [address] [id number] [address] [place] [address], [place] [address] Apr, [facility] [place] [facility] [address] [id number] [address] [place] [address], [place] [address] Feb, [facility] [place] [facility] [address] [id number] [address] [place] [address], [place] [address] Feb, [facility] [place] [facility] [address] [id number] [address] [place] [address], [place] [address] Feb, [facility] [place] [facility] [address] [id number] [address] [place] [address], [place] [address] Feb, [facility] [place] [facility] [address] [id number] [address] [place] [address], [place] [address] Feb, [facility] [address] [id number] [facility] [place] [address] Feb, [facility] [place] [facility] [address] [id number] [address] [place] [address], [place] [address] Jan, [facility] [address] [id number] [address] [place] [address], [place] [address] Jan, [facility] [place] [facility] [address] [id number] [address] [place] [address], [place] [address] Jan, [facility] [address] [id number] [address] [place] [address], [place] [address] Jan, [facility] [address] [id number] [address] [place] [address], [place] [address] Jan, [facility] [address] [id number] [address] [place] [address], [place] [address] Jan, [facility] [place] [facility] [address] [id number] [address] [place] [address], [place] [address] Jan, [facility] [address] [id number] [address] [place] [address], [place] [address] Jan, [facility] [place] [facility] [address] [id number] [address] [place] [address], [place] [address] December, [facility] [address] [id number] [address] [place] [address], [place] [address] December, [facility] [place] [facility] [address] [id number] [address] [place] [address], [place] [address] December, [facility] [place] [facility] [address] [id number] [address] [place] [address], [place] [address] December, [facility] [place] [facility] [address] [id number] [address] [place] [address], [place] [address] Nov, [facility] [place] [facility] [address] [id number] [address] [place] [address], [place] [address] Nov, [facility] [place] [facility] [address] [id number] [address] [place] [address] Nov, [facility] [address] [id number] [address] [place] [address], [place] [address] Nov, [facility] [address] [id number] [address] [place] [address], [place] [address] Nov, [facility] [address] [id number] [address] [place] [address], [place] [address] Nov, [facility] [address] [id number] [address] [place] [address], [place] [address] Nov, [facility] [address] [id number] [address] [place] [address], [place] [address] Nov, [facility] [address] [id number] [address] [place] [address], [place] [address] Oct, [facility] [address] [id number] [address] [place] [address], [place] [address] Oct, [facility] [address] [id number] [address] [place] [address], [place] [address] Sep, [facility] [address] [id number] [address] [place] [address], [place] [address] Sep, [facility] [address] [id number] [address] [place] [id number] Sep, [facility] [address] [id number] [address] [place] [address], [place] [address] Sep, [facility] [address] [id number] [address] [place] [address], [place] [address] Sep, [facility] [address] [id number] [address] [place] [address], [place] [address] Sep, [facility] [address] [id number] [address] [place] [address], [place] [address] Aug, [facility] [address] [id number] [address] [place] [address], [place] [address] Aug, [facility] [address] [id number] [address] [place] [address], [place] [address] Aug, [facility] [address] [id number] [address] [place] [address], [place] [address] Aug, [facility] [address] [id number] [address] [place] [address], [place] [address] Jul, [facility] [address] [id number] [address] [place] [address], [place] [address] Jul, [facility] [address] [id number] [address] [place] [address], [place] [address] Jul, [facility] [address] [id number] [address] [place] [address], [place] [address] Jul, [facility] [address] [id number] [address] [place] [address], [place] [address] Jun, [facility] [address] [id number] [address] [place] [address], [place] [address] Jun, [facility] [address] [id number] [address] [place] [address], [place] [address] May, [facility] [address] [id number] [address] [place] [id number] May, [facility] [address] [id number] [address] [place] [address], [place] [address] May, [facility] [address] [id number] [address] [place] [id number] 11 May, 2013 [facility] [address] [id number] [address] [place] [address], [place] [address] 10 May, 2013 [facility] [address] [id number] [address] [place] [address], [place] [address] 17 Apr, 2013 [facility] [address] [id number] [address] [place] [address], [place] [address] 10 Apr, 2013 [facility] [address] [id number] [address] [place] [address], [place] [address] Mar, [facility] [address] [id number] [address] [place] [address], [place] [address] Mar, [facility] [address] [id number] [address] [place] [address], [place] [address] Mar, [facility] [address] [id number] [address] [place] [address], [place] [address] Mar, [facility] [address] [id number] [address] [place] [address], [place] [address] Feb, [facility] [address] [id number] [address] [place] [address], [place] [address] Feb, [facility] [address] [id number] [address] [place] [address], [place] [address] Feb, [facility] [address] [id number] [address] [place] [address], [place] [address] Feb, [facility] [address] [id number] [address] [place] [address], [place] [address] Feb, [facility] [address] [id number] [address] [place] [address], [place] [address] Jan, [facility] [address] [id number] [address] [place] [address], [place] [address] Jan, [facility] [address] [id number] [address] [place] [address], [place] [address] Jan, [facility] [address] [id number] [address] [place] [address], [place] [address] Jan, [facility] [address] [id number] [address] [place] [address], [place] [address] Jan, [facility] [address] [id number] [address] [place] [address], [place] [address] December, [facility] [address] [id number] [address] [place] [address], [place] [address] December, [facility] [address] [id number] [address] [place] [address], [place] [address] 17 Nov, 2012 [facility] [address] [id number] [address] [place] [address], [place] [address] Nov, [facility] [address] [id number] [address] [place] [address], [place] [address] 19 Oct, 2012 [facility] [address] [id number] [address] [place] [address], [place] [address] Oct, [facility] [address] [id number] [address] [place] [address], [place] [address] 05 Oct, 2012 [facility] [address] [id number] [address] [place] [address], [place] [address] 14 Sep, 2012 [facility] [address] [id number] [address] [place] [address], [place] [address] 24 Aug, 2012 [facility] [address] [id number] [address] [place] [address], [place] [address] 16 Aug, 2012 [facility] [address] [id number] [address] [place] [address], [place] [address] 15 Aug, 2012 [facility] [address] [id number] [address] [place] [address], [place] [address] Aug, [facility] [address] [id number] [address] [place] [address], [place] [address] Jul, [facility] [address] [id number] [address] [place] [address], [place] [address] Jul, [facility] [address] [id number] [address] [place] [address], [place] [address] Jul, [facility] [address] [id number] [address] [place] [address], [place] [address] Jul, [facility] [address] [id number] [address] [place] [address], [place] [address] 06 Jul, 2012 [facility] [facility] [address] [id number] [address] [address] Jul, [facility] [address] [id number] [address] [place] [address], [place] [address] Jul, [facility] [address] [id number] [address] [place] [address], [place] [address] Jul, [facility] [address] [id number] [address] [place] [address], [place] [address] Jun, [facility] [address] [id number] [address] [place] [id number] Jun, [facility] [address] [id number] [address] [place] [address], [place] [address] Jun, [facility] [address] [id number] [address] [place] [id number] Jun, [facility] [address] [id number] [address] [place] [address], [place] [address] Jun, [facility] [address] [id number] [address] [place] [id number] Jun, [facility] [address] [id number] [address] [place] [id number] May, [facility] [address] [id number] [address] [place] [id number] May, [facility] [address] [id number] [address] [place] [id number] May, [facility] [address] [id number] [address] [place] [id number] May, [facility] [address] [id number] [address] [place] [address], [place] [address] Apr, [facility] [address] [id number] [address] [place] [id number] Apr, [facility] [address] [id number] [address] [place] [id number] Mar, [facility] [address] [id number] [address] [place] [address], [place] [address] 28 Jan, 2012 [facility] [address] [id number] [address] [place] [address], [place] [address] 20 Jan, 2012 [facility] [address] [id number] [address] [place] [address], [place] [address] 16 Jan, 2012 [facility] [address] [id number] [address] [place] [address], [place] [address] 15 Jan, 2012 [facility] [address] [id number] [address] [place] [address], [place] [address] 14 Jan, 2012 [facility] [address] [id number] [address] [place] [address], [place] [address] 14 Jan, 2012 [facility] [address] [id number] [address] [place] [address], [place] [address] 07 Jan, 2012 [facility] [address] [id number] [address] [place] [address], [place] [address] December, [facility] [address] [id number] [address] [place] [address], [place] [address] 10 Dec, 2011 [facility] [address] [id number] [address] [place] [address], [place] [address] 09 Dec, 2011 [facility] [address] [id number] [address] [place] [address], [place] [address] 02 Dec, 2011 [facility] [address] [id number] [address] [place] [address], [place] [address] 25 Nov, 2011 [facility] [address] [id number] [address] [place] [address], [place] [address] 05 Nov, 2011 [facility] [address] [id number] [address] [place] [address], [place] [address] 29 Oct, 2011 [facility] [address] [id number] [address] [place] [address], [place] [address] 28 Oct, 2011 [facility] [address] [id number] [address] [place] [address], [place] [address] Oct, [facility] [address] [id number] [address] [place] [address], [place] [address] Sep, [facility] [address] [id number] [address] [place] [address], [place] [address] Sep, [facility] [address] [id number] [address] [place] [address], [place] [address] Sep, [facility] [address] [id number] [address] [place] [address], [place] [address] Aug, [facility] [address] [id number] [address] [place] [address], [place] [address] Aug, [facility] [address] [id number] [address] [place] [address], [place] [address] Aug, [facility] [address] [id number] [address] [place] [address], [place] [address] Aug, [facility] [address] [id number] [address] [place] [address], [place] [address] Aug, [facility] [address] [id number] [address] [place] [address], [place] [address] Aug, [facility] [address] [id number] [address] [place] [address], [place] [address] Aug, [facility] [address] [id number] [address] [place] [address], [place] [address] Jul, [facility] [address] [id number] [address] [place] [address], [place] [address] Jul, [facility] [address] [id number] [address] [place] [address], [place] [address] Jun, [facility] [address] [id number] [address] [place] [address], [place] [address] Jun, [facility] [address] [id number] [address] [place] [address], [place] [address] Jun, [facility] [address] [id number] [address] [place] [address], [place] [address] 15 Jun, 2011 [facility] [address] [id number] [address] [place] [address], [place] [address] 14 Jun, 2011 [facility] [address] [id number] [address] [place] [address], [place] [address] 14 Jun, 2011 [facility] [address] [id number] [address] [place] [address], [place] [address] 07 Jun, 2011 [facility] [address] [id number] [address] [place] [address], [place] [address] 07 Jun, 2011 [facility] [address] [id number] [address] [place] [address], [place] [address] 02 Jun, 2011 [facility] [address] [id number] [address] [place] [address], [place] [address] Jun, [facility] [address] [id number] [address] [place] [address], [place] [address] 31 May, 2011 [facility] [address] [id number] [address] [place] [address], [place] [address] 31 May, 2011 [facility] [address] [id number] [address] [place] [address], [place] [address] 25 May, 2011 [facility] [address] [id number] [address] [place] [address], [place] [address] 24 May, 2011 [facility] [address] [id number] [address] [place] [address], [place] [address] 18 May, 2011 [facility] [address] [id number] [address] [place] [address], [place] [address] May, [facility] [address] [id number] [address] [place] [address], [place] [address] Feb, [facility] [address] [id number] [address] [place] [address], [place] [address] December, [facility] [address] [id number] [address] [place] [address], [place] [address] Jul, [facility] [address] [id number] [address] [place] [id number] 29 Jul, 2010 [facility] [address] [id number] [address] [place] [id number] 22 Jul, 2010 [facility] [address] [id number] [address] [place] [id number] Jul, [facility] [address] [id number] [address] [place] [id number] 15 Jun, 2010 [facility] [address] [id number] [address] [place] [id number] 31 Jul, 2009 [facility] [address] [id number] [address] [place] [id number] Jul, [facility] [address] [id number] [address] [place] [id number] Jul, [facility] [address] [id number] [address] [place] [id number] Jul, [facility] [address] [id number] [address] [place] [phone] Jul, [facility] [address] [id number] [address] [place] [id number] Jul, [facility] [address] [id number] [address] [place] [id number] Jan, [facility] [address] [id number] [address] [place] [id number] 16 Sep, 2008 [facility] [address] [id number] [address] [place] [id number] Sep, IMMUNIZATIONS No Known Immunizations SOCIAL HISTORY Never Assessed REASON FOR VISIT PLAN OF CARE VITAL SIGNS Height 66 in 2014-10-18 Weight 211 lbs 2014-10-18 Temperature 97.3 degrees Fahrenheit 2014-10-18 Heart Rate 70 bpm 2014-10-18 Respiratory Rate 20 2014-10-18 Blood pressure systolic 122 mmHg 2014-10-18 Blood pressure diastolic 80 mmHg 2014-10-18 MEDICATIONS Unknown Medications RESULTS No Results PROCEDURES Procedure Date Ordered Result Body Site GLYCATED HEMOGLOBIN TEST Oct 18, 2014 LIPID PANEL Oct 18, 2014 COMPREHEN METABOLIC PANEL Oct 18, 2014 VENIPUNCT, ROUTINE* Oct 18, 2014 INSTRUCTIONS MEDICATIONS ADMINISTERED No Known Medications [...]
--- OUTSIDE RECORDS SUMMARY | 2020-01-27 10:03 | XMS REPORT ---
Author Author Silvia WILKINS Organization [facility] Address [address] [place] [address] Care Team Providers Care Plane Tableman Name Role Phone LETTY WILKINS Unavailable PROBLEMS Type Condition ICD9-CM Code NUO34-NN Code Onset Dates Condition S tatus SNOMED Code Problem Hypertension I10 Active 1926012 3 Problem Generalized anxiety disorder F41.1 A ctive 081263993 Problem History of colon polyps Z86.010 Active 338674878 Problem History of diverticulitis Z87.19 Acti ve [id number] Problem Family history of diabetes mellitus Z83.3 Active 617750440 Problem Excessive and frequent menstruation with irregular cycle N92.1 Active 936480612 Problem Hot flashes N95.1 Active 44146629 8 Problem Gastroesophageal reflux disease with esophagitis K 21.0 Active 342559187 Problem History of ovarian cyst Z87.42 Active 89766230 Problem Diverticulitis K57.92 Active 46730 6006 Problem Dense breast tissue R92.2 Active 365733065 Problem Perimenopausal N95.1 Active 27095 5945039248 Problem Mitral valve prolapse I34.1 Active 582791128 Problem Abnormal uterine bleeding (AUB) N93.9 Active 28815789834245 Problem Tachycardia R00.0 Active [id number] ALLERGIES No Information ENCOUNTERS Encounter Location Date Diagnosis [facility] [address] [facility] [id number] [address] [place] [address] December, [facility] [address] [facility] [id number] [address] [place] [address] Nov, [place] [address] [address] [facility] [id number] [address] [place] [address] 16 Nov, 2019 Generalized anxiety disorder F41.1 and Bereavement Z63.4 [place] [address] [address] [facility] [id number] [address] [place] [address] Nov, [facility] [address] [id number] [address] [place] [id number] Nov, [facility] [address] [id number] [address] [place] [address] 06 Nov, 2019 Generalized anxiety disorder F41.1 [facility] [address] [id number] [address] [place] [address] 30 Oct, 2019 Generalized anxiety disorder F41.[address] [facility] [address] [id number] [address] [place] [address] 16 Oct, 2019 Acute non-recurrent sinusiti s, unspecified location J01.90 [facility] [address] [id number] [address] [place] [address] 05 Oct, 2019 Acute non-recurrent frontal sinusitis J01.10 [facility] [address] [id number] [address] [place] [address] 27 Sep, 2019 Generalized anxiety disorder F41.[address] [facility] [address] [id number] [address] [place] [phone] 17 Sep, 2019 [facility] [address] [id number] [address] [place] [address] 11 Sep, 2019 Generalized anxiety disorder F41.[address] [facility] [address] [id number] [address] [place] [address] Aug, Generalized anxiety disorder F41.[address] [facility] [address] [id number] [address] [place] [address] Aug, Generalized anxiety disorder F41.1 [facility] [address] [facility] [id number] [address] [place] [phone] 06 Aug, 2019 Viral upper respiratory trac t infection J06.9 [facility] [address] [id number] [address] [place] [address] Jul, Generalized anxiety disorder F41.[address] [facility] [address] [facility] [id number] [address] [place] [address] Jul, Acute non-recurrent frontal sinusitis J01.10 [facility] [address] [facility] [id number] [address] [place] [address] Jul, [facility] [address] [facility] [id number] [address] [place] [address] Jul, Sore throat J02.9 [address] is K12.2 [facility] [address] [facility] [id number] [address] [place] [address] Jul, Generalized anxiety disorder F41.1 [facility] [address] [id number] [place] [address] Jul, [address] [facility] [address] [facility] [id number] [address] [place] [address] Jun, Generalized anxiety disorder F41.1 [facility] [address] [facility] [id number] [address] [place] [phone] Jun, Generalized anxiety disorder F41.[address] [facility] [address] [facility] [id number] [address] [place] [phone] May, Generalized anxiety disorder F41.1 [facility] [address] [facility] [id number] [address] [place] [phone] May, Dysuria R30.0 [facility] [address] [facility] [id number] [address] [place] [address] May, Generalized anxiety disorder F41.[address] [facility] [address] [facility] [id number] [address] [place] [address] May, [facility] [address] [facility] [id number] [address] [place] [address] Apr, Generalized anxiety disorder F41.[address] [facility] [address] [facility] [id number] [address] [place] [address] Apr, Generalized anxiety disorder F41.1 [facility] [address] [id number] [address] [address] Mar, Caries K02.9 ; Dental examin ation Z01.20 ; Periodontitis K05.30 and Oral health maintenance status requiring routine preventive dental care K08.9 [facility] [address] [facility] [id number] [address] [place] [address] Mar, Generalized anxiety disorder F41.1 [facility] [address] [facility] [id number] [address] [place] [address] Mar, Gastrointestinal hemorrhage associated with gastroduodenitis K29.91 [facility] [address] [facility] [id number] [address] [place] [address] Mar, Generalized anxiety disorder F41.[address] [facility] [address] [facility] [id number] [address] [place] [address] Mar, [facility] [address] [facility] [id number] [address] [place] [address] Mar, [facility] [address] [facility] [id number] [address] [place] [address] Mar, [facility] [address] [facility] [id number] [address] [place] [address] Mar, Tachycardia R00.0 and Essent ial hypertension I10 [facility] [address] [facility] [id number] [address] [place] [address] Feb, Generalized anxiety disorder F41.1 [facility] [address] [facility] [id number] [address] [place] [address] Feb, Generalized anxiety disorder F41.[address] [facility] [address] [facility] [id number] [address] [place] [address] Feb, Generalized anxiety disorder F41.1 [facility] [address] [place] [id number] [address] [place] [address] Feb, Generalized anxiety disorder F41.[address]4 [facility] [address] [facility] [id number] [address] [place] [address] Jan, [facility] [address] [place] [id number] [address] [place] [address] Jan, Breast cancer screening by trenton crenshaw Z12.31 [place] [address] [address] [place] [id number] [place] [address] Jan, Generalized anxiety disorder F41.[address] [facility] [address] [place] [id number] [address] [place] [address] Jan, [facility] [address] [place] [id number] [address] [place] [address] December, Generalized anxiety disorder F41.[address] [facility] [address] [place] [id number] [address] [place] [address] December, Diverticulitis K57.92 ; Dysu nick R30.0 ; Other constipation K59.09 and Lower abdominal pain R10.30 [facility] [address] [facility] [id number] [address] [place] [address] Nov, Diverticulitis K57.92 [facility] [address] [place] [id number] [address] [place] [address] Nov, Generalized anxiety disorder F41.1 [address]4 [facility] [address] [place] [id number] [address] [place] [address] Nov, Generalized anxiety disorder F41.[address] [facility] [address] [place] [id number] [address] [place] [address] Nov, Diverticulitis K57.92 [facility] [address] [facility] [id number] [address] [place] [address] Oct, Diverticulitis K57.92 [facility] [address] [facility] [id number] [address] [place] [address] Oct, Diverticulitis K57.92 [facility] [address] [facility] [id number] [address] [place] [address] Oct, Generalized anxiety disorder F41.1 [facility] [address] [facility] [id number] [address] [place] [address] Oct, Right lower quadrant abdomin al pain R10.[address] [facility] [address] [facility] [id number] [address] [place] [address] Sep, Generalized anxiety disorder F41.[address] [facility] [address] [facility] [id number] [address] [place] [address] Aug, [facility] [address] [facility] [id number] [address] [place] [address] Aug, Generalized anxiety disorder F41.1 and Bereavement Z63.4 [facility] [address] [id number] [place] [address] Aug, [address]9 [facility] [address] [facility] [id number] [address] [place] [address] Jul, Generalized anxiety disorder F41.[address] [facility] [address] [facility] [id number] [address] [place] [address] Jul, Other acute gastritis withou t hemorrhage K29.00 ; Generalized anxiety disorder F41.1 ; Tachycardia R00.0 and Essential hypertension I10 [facility] [address] [facility] [id number] [address] [place] [address] Jul, Generalized anxiety disorder F41.[address] [facility] [address] [facility] [id number] [address] [place] [address] Jun, Generalized anxiety disorder F41.[address]4 [facility] [address] [facility] [id number] [address] [place] [address] Jun, Generalized anxiety disorder F41.1 and Bereavement Z63.4 [facility] [address] [facility] [id number] [place] [address] 02 Jun, [address] [facility] [address] [facility] [id number] [address] [place] [address] May, Generalized anxiety disorder F41.[address]4 [facility] [address] [facility] [id number] [address] [place] [address] 08 May, 2018 Encounter for immunization Z 23 [facility] [address] [facility] [id number] [address] [place] [address] 08 May, 2018 Generalized anxiety disorder F41.1 [address]63.4 [facility] [address] [facility] [id number] [address] [place] [address] May, [facility] [address] [facility] [id number] [address] [place] [address] 24 Apr, 2018 Generalized anxiety disorder F41.1 [address].4 [facility] [address] [facility] [id number] [address] [place] [address] 17 Apr, 2018 [facility] [address] [facility] [id number] [address] [place] [address] 13 Apr, [address] [facility] [address] [facility] [id number] [address] [place] [address] 10 Apr, 2018 Generalized anxiety disorder F41.1 and Bereavement Z63.4 [facility] [address] [facility] [id number] [address] [place] [address] Mar, [facility] [address] [id number] [address] [place] [address] Mar, Diverticulitis K57.92 [facility] [address] [id number] [address] [place] [address] Mar, Generalized anxiety disorder F41.1 [address]63.4 [facility] [address] [id number] [address] [place] [address] Mar, Hypertension I10 [facility] [address] [id number] [address] [place] [address] Mar, Generalized anxiety disorder F41.1 [address]63.4 [facility] [address] [id number] [address] [place] [address] Feb, Generalized anxiety disorder F41.1 [address] Z63.4 [facility] [address] [id number] [address] [place] [address] Feb, [facility] [address] [id number] [address] [place] [address] Feb, Generalized anxiety disorder F41.1 [address]63.4 [facility] [address] [id number] [address] [place] [address] Feb, Generalized anxiety disorder F41.1 [address]4 [facility] [address] [facility] [id number] [address] [place] [address] Jan, Hypertension I10 and Acute n on-recurrent maxillary sinusitis J01.00 [facility] [address] [id number] [address] [place] [address] December, [facility] [address] [id number] [address] [place] [address] December, Hypertension I10 [facility] [address] [id number] [address] [place] [address] December, Generalized anxiety disorder F41.1 [facility] [address] [id number] [place] [address] 16 Oct, 2017 Encounter for dental examina tion Z01.20 [facility] [address] [id number] [place] [address] 06 Oct, 2017 Encounter for dental examina tion Z01.20 [facility] [address] [id number] [place] [address] 02 Oct, [address] [facility] [address] [id number] [address] [place] [address] Oct, Generalized anxiety disorder F41.1 [facility] [address] [id number] [place] [address] Aug, Dental examination Z01.20 [facility] [address] [id number] [address] [place] [address] Aug, Generalized anxiety disorder F41.1 [facility] [address] [id number] [address] [place] [address] Aug, [facility] [address] [id number] [address] [place] [address] 09 Aug, 2017 Encounter for dental examina tion Z01.20 [facility] [address] [id number] [address] [place] [address] Aug, Subacute maxillary sinusitis J01.00 [facility] [address] [id number] [place] [address] Jul, Dental examination Z01.20 [facility] [address] [id number] [address] [place] [address] Jul, Generalized anxiety disorder F41.1 [facility] [address] [id number] [address] [place] [address] Jul, Diverticulitis K57.92 [facility] [address] [id number] [address] [place] [address] 28 Jun, 2017 Encounter for immunization Z 23 [facility] [address] [id number] [address] [place] [address] 22 Jun, [address] [facility] [address] [id number] [address] [place] [address] 14 Jun, 2017 Generalized anxiety disorder F41.1 [facility] [address] [id number] [address] [place] [address] 07 Jun, [address] [facility] [address] [id number] [address] [place] [address] May, [facility] [address] [id number] [address] [place] [id number] May, Dental examination Z01.20 [facility] [address] [id number] [place] [address] [id number] May, Dental examination Z01.20 [facility] [address] [id number] [address] [place] [address] May, Dental examination Z01.20 [facility] [address] [id number] [address] [place] [address] May, [facility] [address] [id number] [address] [place] [address] May, Generalized anxiety disorder F41.1 [facility] [address] [id number] [address] [place] [address] 05 May, 2017 Localized edema R60.0 ; Yeas t vaginitis B37.3 and Gastroesophageal reflux disease with esophagitis K21.0 [facility] [address] [id number] [address] [place] [id number] Apr, Dental examination Z01.20 [facility] [address] [id number] [address] [place] [address] 21 Apr, 2017 Dental examination Z01.20 [facility] [address] [id number] [place] [address] 05 Apr, [address] [facility] [address] [id number] [address] [place] [address] Mar, Dyspepsia R10.13 [facility] [address] [id number] [address] [place] [address] Mar, Generalized anxiety disorder F41.1 [facility] [address] [id number] [address] [place] [address] Mar, Encounter for dental examina tion Z01.20 [facility] [address] [id number] [address] [place] [id number] Mar, [facility] [address] [id number] [address] [place] [id number] Mar, Dental examination Z01.20 [facility] [address] [id number] [address] [place] [address] Feb, Hypertension I10 and Tachyca rdia R00.0 [facility] [address] [id number] [address] [place] [address] Feb, [facility] [address] [id number] [address] [place] [address] Feb, Generalized anxiety disorder F41.1 [facility] [address] [id number] [address] [place] [address] [id number] Feb, Dental examination Z01.20 [facility] [address] [id number] [address] [place] [address] Jan, Generalized anxiety disorder F41.1 [facility] [address] [id number] [address] [place] [address] December, Generalized anxiety disorder F41.1 [facility] [address] [id number] [address] [place] [address] [id number] December, Encounter for dental examina tion Z01.20 [facility] [address] [facility] [id number] [address] [place] [address] Nov, [facility] [address] [facility] [id number] [address] [place] [address] Nov, [facility] [address] [facility] [id number] [address] [place] [address] Nov, Generalized anxiety disorder F41.1 [facility] [address] [facility] [id number] [address] [place] [phone] 30 Oct, 2016 [facility] [address] [facility] [id number] [address] [place] [address] [id number] Oct, Dental examination Z01.20 [facility] [address] [facility] [id number] [address] [place] [address] Oct, Vaginal dryness N89.8 [facility] [address] [place] [id number] [address] [place] [address] Oct, Pseudoseizures F44.5 [facility] [address] [facility] [id number] [address] [place] [address] Oct, Generalized anxiety disorder F41.1 [facility] [address] [facility] [id number] [address] [place] [address] 28 Sep, 2016 Abnormal uterine bleeding (A UB) N93.9 ; Vaginal dryness N89.8 and Screening breast examination Z12.39 [facility] [address] [facility] [id number] [address] [place] [id number] Sep, Dental examination Z01.20 [facility] [address] [facility] [id number] [address] [place] [id number] Sep, Generalized anxiety disorder F41.1 [facility] [address] [facility] [id number] [address] [place] [id number] 06 Sep, 2016 Unspecified ovarian cyst, ri ght side N83.201 ; Unspecified ovarian cyst, left side N83.202 ; Yeast infection of the vagina B37.3 ; Mitral valve prolapse I34.[address] [facility] [address] [id number] [address] [place] [phone] 18 Aug, 2016 Generalized anxiety disorder F41.1 [facility] [address] [id number] [address] [place] [phone] 28 Jul, 2016 [facility] [address] [facility] [id number] [address] [place] [phone] Jul, Generalized anxiety disorder F41.1 [facility] [address] [id number] [address] [place] [phone] 15 Jun, 2016 Generalized anxiety disorder F41.1 [facility] [address] [facility] [id number] [address] [place] [id number] 28 May, 2016 Encounter for immunization Z 23 [facility] [address] [facility] [id number] [address] [place] [id number] 17 May, 2016 Generalized anxiety disorder F41.1 and Depressive disorder, not elsewhere classified F32.9 [facility] [address] [facility] [id number] [address] [place] [phone] 28 Apr, [address] [facility] [address] [facility] [id number] [address] [place] [id number] 22 Apr, 2016 Cervicalgia M54.2 [facility] [facility] [address] [facility] [id number] [address] [place] [address] 12 Apr, [address] [facility] [address] [facility] [id number] [address] [place] [address] 09 Mar, 2016 Generalized anxiety disorder F41.1 and Depressive disorder, not elsewhere classified F32.9 [facility] [address] [id number] [address] [place] [address] [id number] 14 Feb, 2016 Visit for dental examination Z01.20 [facility] [address] [facility] [id number] [address] [place] [address] 11 Feb, 2016 Pseudoseizures F44.5 ; Migra ine without status migrainosus, not intractable, unspecified migraine type G43.909 and Essential hypertension I10 [facility] [address] [id number] [place] [id number] 06 Feb, [address] [facility] [address] [facility] [id number] [address] [place] [address] 05 Feb, 2016 Generalized anxiety disorder F41.1 and Depressive disorder, not elsewhere classified F32.9 [facility] [address] [facility] [id number] [address] [place] [address] Jan, Tachycardia R00.0 [place] [address] [facility] [id number] [address] [place] [address] December, Eustachian tube dysfunction, bilateral H69.83 [facility] [address] [facility] [id number] [address] [place] [address] December, Generalized anxiety disorder F41.1 and Depressive disorder, not elsewhere classified F32.9 [facility] [address] [facility] [id number] [address] [place] [address] [address], [address] [facility] [address] [facility] [id number] [address] [place] [address] [address], [address] [facility] [address] [facility] [id number] [address] [place] [address] 20 Nov, 2015 Hypertension I10 ; Onychomyc [...] Complex cyst of left ovary N83.29 [facility] [address] [facility] [id number] [address] [place] [address] 14 Nov, [address] [facility] [address] [place] [id number] [address] [place] [address] Oct, Complex cyst of left ovary N 83.29 [place] [address] [address] Oct, Onychomycosis B35.1 [facility] [address] [place] [id number] [address] [place] [address] [id number] Oct, Dental examination Z01.20 [place] [address] [address] 09 Oct, 2015 Well woman exam Z01.419 [...] R92.2 and History of colon polyps Z86.010 [place] [address] [address] Oct, Generalized anxiety disorder F41.1 and Depressive disorder, not elsewhere classified F32.9 [place] [address] [address] Sep, Hypertension I10 and Onychom ycosis B35.1 [place] [address] [address] Sep, Skin tags, multiple acquired L91.8 [place] [address] [address] Aug, [place] [address] [address] Aug, [place] [address] [address] Aug, [facility] [address] [facility] [id number] [address] [place] [address] Aug, Generalized anxiety disorder F41.1 and Depressive disorder, not elsewhere classified F32.9 [facility] [address] [facility] [id number] [address] [place] [address] Jul, Skin lesion L98.9 [facility] [address] [facility] [id number] [address] [place] [address] Jun, Generalized anxiety disorder F41.1 and Depressive disorder, not elsewhere classified F32.9 [facility] [address] [facility] [id number] [address] [place] [address] Jun, [facility] [address] [facility] [id number] [address] [place] [address] Jun, Generalized anxiety disorder F41.1 [facility] [address] [place] [id number] [address] [place] [address] May, Encounter for immunization Z 23 and Right shoulder pain M25.511 [facility] [address] [facility] [id number] [address] [place] [address] Apr, [facility] [address] [facility] [id number] [address] [place] [address] 14 Apr, 2015 Generalized anxiety disorder 300.02 and Depressive disorder, not elsewhere classified 311 [facility] [address] [id number] [address] [place] [address] [id number] Mar, Dental examination V72.2 [facility] [address] [facility] [id number] [address] [place] [address] Mar, Generalized anxiety disorder 300.02 and Depressive disorder, not elsewhere classified [address] 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 [address] [facility] [id number] [address] [place] [address] Feb, Generalized anxiety disorder 300.02 and Depressive disorder, not elsewhere classified 311 [facility] [address] [id number] [address] [place] [id number] Feb, Dental examination V72.2 [facility] [address] [facility] [id number] [address] [place] [address] 09 Jan, 2015 Generalized anxiety disorder 300.02 and Depressive disorder, not elsewhere classified [address] [facility] [address] [id number] [address] [place] [address] Jan, [facility] [address] [facility] [id number] [address] [place] [address] December, Generalized anxiety disorder 300.02 and Depressive disorder, not elsewhere classified [address] [facility] [address] [facility] [id number] [address] [place] [address] December, Major depressive disorder, r ecurrent, unspecified 296.30 and Panic disorder with agoraphobia 300.21 [facility] [address] [facility] [id number] [address] [place] [address] Nov, [facility] [address] [facility] [id number] [address] [place] [address] Nov, [facility] [address] [facility] [id number] [address] [place] [address] Oct, [facility] [address] [facility] [id number] [address] [place] [address] Oct, [facility] [address] [facility] [id number] [address] [place] [address] Oct, [facility] [address] [facility] [id number] [address] [place] [address] Oct, [facility] [address] [facility] [id number] [address] [place] [address] Sep, [facility] [address] [facility] [id number] [address] [place] [address] Sep, [facility] [address] [id number] [address] [place] [address], [place] [address] Sep, 2014 [facility] [address] [id number] [address] [place] [address], [place] [address] Sep, 2014 [facility] [place] [facility] [address] [id number] [address] [place] [address], [place] [address] Sep, 2014 [facility] [place] [facility] [address] [id number] [address] [place] [address], [place] [address] Sep, 2014 [facility] [address] [id number] [address] [place] [address], [place] [address] Sep, 2014 [facility] [place] [facility] [address] [id number] [address] [place] [address], [place] [address] Sep, 2014 [facility] [address] [id number] [address] [place] [address], [place] [address] Sep, 2014 [facility] [address] [id number] [address] [place] [address], [place] [address] Sep, 2014 [facility] [address] [id number] [address] [place] [address], [place] [address] Aug, [facility] [address] [id number] [address] [place] [address], [place] [address] Aug, [facility] [address] [id number] [address] [place] [address], [place] [address] Jul, [facility] [place] [facility] [address] [id number] [address] [place] [address], [place] [address] Jul, [facility] [place] [facility] [address] [id number] [address] [place] [address], [place] [address] 18 Jul, 2014 [facility] [place] [facility] [address] [id number] [address] [place] [address], [place] [address] Jul, [facility] [place] [facility] [address] [id number] [address] [place] [address], [place] [address] 11 Jul, 2014 [facility] [place] [facility] [address] [id number] [address] [place] [address] [place] [address] Jul, [facility] [address] [id number] [address] [place] [address], [place] [address] Jul, [facility] [place] [facility] [address] [id number] [address] [place] [address], [place] [address] Jul, [facility] [address] [id number] [address] [place] [address], [place] [address] Jul, [facility] [place] [facility] [address] [id number] [address] [place] [address], [place] [address] Jul, [facility] [address] [id number] [address] [place] [address], [place] [address] Jul, [facility] [address] [id number] [address] [place] [address], [place] [address] Jul, [facility] [address] [id number] [address] [place] [address], [place] [address] Jun, [facility] [address] [id number] [address] [place] [address], [place] [address] Jun, [facility] [address] [id number] [address] [place] [address], [place] [address] May, [facility] [address] [id number] [address] [place] [address], [place] [address] May, [facility] [place] [facility] [address] [id number] [address] [place] [address], [place] [address] May, [facility] [place] [facility] [address] [id number] [address] [place] [address], [place] [address] May, [facility] [place] [facility] [address] [id number] [address] [place] [address], [place] [address] May, [facility] [place] [facility] [address] [id number] [address] [place] [address], [place] [address] May, [facility] [place] [facility] [address] [id number] [address] [place] [address], [place] [address] May, [facility] [place] [facility] [address] [id number] [address] [place] [address], [place] [address] May, [facility] [place] [facility] [address] [id number] [address] [place] [address], [place] [address] May, [facility] [place] [facility] [address] [id number] [address] [place] [address], [place] [address] May, [facility] [place] [facility] [address] [id number] [address] [place] [address], [place] [address] May, [facility] [place] [facility] [address] [id number] [address] [place] [address], [place] [address] May, [facility] [place] [facility] [address] [id number] [address] [place] [address], [place] [address] Apr, [facility] [place] [facility] [address] [id number] [address] [place] [address], [place] [address] 30 Apr, 2014 [facility] [place] [facility] [address] [id number] [address] [place] [address], [place] [address] Apr, [facility] [place] [facility] [address] [id number] [address] [place] [address], [place] [address] Apr, [facility] [place] [facility] [address] [id number] [address] [place] [address], [place] [address] Apr, [facility] [place] [facility] [address] [id number] [address] [place] [address], [place] [address] Apr, [facility] [place] [facility] [address] [id number] [address] [place] [address], [place] [address] Feb, [facility] [place] [facility] [address] [id number] [address] [place] [address], [place] [address] Feb, [facility] [place] [facility] [address] [id number] [address] [place] [address], [place] [address] Feb, [facility] [place] [facility] [address] [id number] [address] [place] [address], [place] [address] Feb, [facility] [place] [facility] [address] [id number] [address] [place] [address], [place] [address] Feb, [facility] [address] [id number] [facility] [address] Feb, [facility] [place] [facility] [address] [id number] [address] [place] [address], [place] [address] Jan, [facility] [address] [id number] [address] [place] [address], [place] [address] Jan, [facility] [place] [facility] [address] [id number] [address] [place] [address], [place] [address] Jan, [facility] [address] [id number] [address] [place] [address], [place] [address] Jan, [facility] [address] [id number] [address] [place] [address], [place] [address] Jan, [facility] [address] [id number] [address] [place] [address], [place] [address] Jan, [facility] [place] [facility] [address] [id number] [address] [place] [address], [place] [address] Jan, [facility] [address] [id number] [address] [place] [address], [place] [address] Jan, [facility] [place] [facility] [address] [id number] [address] [place] [address], [place] [address] December, [facility] [address] [id number] [address] [place] [address], [place] [address] December, [facility] [place] [facility] [address] [id number] [address] [place] [address], [place] [address] December, [facility] [place] [facility] [address] [id number] [address] [place] [address], [place] [address] December, [facility] [place] [facility] [address] [id number] [address] [place] [address], [place] [address] Nov, [facility] [place] [facility] [address] [id number] [address] [place] [address], [place] [address] Nov, [facility] [place] [facility] [address] [id number] [address] [place] [address] Nov, [facility] [address] [id number] [address] [place] [address], [place] [address] Nov, [facility] [address] [id number] [address] [place] [address], [place] [address] Nov, [facility] [address] [id number] [address] [place] [address], [place] [address] Nov, [facility] [address] [id number] [address] [place] [address], [place] [address] Nov, [facility] [address] [id number] [address] [place] [address], [place] [address] Nov, [facility] [address] [id number] [address] [place] [address], [place] [address] Oct, [facility] [address] [id number] [address] [place] [address], [place] [address] Oct, [facility] [address] [id number] [address] [place] [address], [place] [address] Sep, [facility] [address] [id number] [address] [place] [address], [place] [address] Sep, [facility] [address] [id number] [address] [place] [address] [id number] Sep, [facility] [address] [id number] [address] [place] [address], [place] [address] Sep, [facility] [address] [id number] [address] [place] [address], [place] [address] Sep, [facility] [address] [id number] [address] [place] [address], [place] [address] Sep, [facility] [address] [id number] [address] [place] [address], [place] [address] Aug, [facility] [address] [id number] [address] [place] [address], [place] [address] Aug, [facility] [address] [id number] [address] [place] [address], [place] [address] Aug, [facility] [address] [id number] [address] [place] [address], [place] [address] Aug, [facility] [address] [id number] [address] [place] [address], [place] [address] Jul, [facility] [address] [id number] [address] [place] [address], [place] [address] Jul, [facility] [address] [id number] [address] [place] [address], [place] [address] Jul, [facility] [address] [id number] [address] [place] [address], [place] [address] Jul, [facility] [address] [id number] [address] [place] [address], [place] [address] Jun, [facility] [address] [id number] [address] [place] [address], [place] [address] Jun, [facility] [address] [id number] [address] [place] [address], [place] [address] May, [facility] [address] [id number] [address] [place] [address] May, [facility] [address] [id number] [address] [place] [address], [place] [address] May, [facility] [address] [id number] [address] [place] [address] 11 May, 2013 [facility] [address] [id number] [address] [place] [address], [place] [address] 10 May, 2013 [facility] [address] [id number] [address] [place] [address], [place] [address] 17 Apr, 2013 [facility] [place] [facility] [address] [id number] [address] [place] [address], [place] [address] 10 Apr, 2013 [facility] [address] [id number] [address] [place] [address], [place] [address] Mar, [facility] [address] [id number] [address] [place] [address], [place] [address] Mar, [facility] [address] [id number] [address] [place] [address], [place] [address] Mar, [facility] [address] [id number] [address] [place] [address], [place] [address] Mar, [facility] [address] [id number] [address] [place] [address], [place] [address] Feb, [facility] [address] [id number] [address] [place] [address], [place] [address] Feb, [facility] [address] [id number] [address] [place] [address], [place] [address] Feb, [facility] [address] [id number] [address] [place] [address], [place] [address] Feb, [facility] [address] [id number] [address] [place] [address], [place] [address] Feb, [facility] [address] [id number] [address] [place] [address], [place] [address] Jan, [facility] [address] [id number] [address] [place] [address], [place] [address] Jan, [facility] [address] [id number] [address] [place] [address], [place] [address] Jan, [facility] [address] [id number] [address] [place] [address], [place] [address] Jan, [facility] [address] [id number] [address] [place] [address], [place] [address] Jan, [facility] [address] [id number] [address] [place] [address], [place] [address] December, [facility] [address] [id number] [address] [place] [address], [place] [address] December, [facility] [address] [id number] [address] [place] [address], [place] [address] 17 Nov, 2012 [facility] [address] [id number] [address] [place] [address], [place] [address] Nov, [facility] [address] [id number] [address] [place] [address], [place] [address] 19 Oct, 2012 [facility] [address] [id number] [address] [place] [address], [place] [address] Oct, [facility] [address] [id number] [address] [place] [address], [place] [address] 05 Oct, 2012 [facility] [address] [id number] [address] [place] [address], [place] [address] 14 Sep, 2012 [facility] [address] [id number] [address] [place] [address], [place] [address] 24 Aug, 2012 [facility] [address] [id number] [address] [place] [address], [place] [address] 16 Aug, 2012 [facility] [address] [id number] [address] [place] [address], [place] [address] 15 Aug, 2012 [facility] [address] [id number] [address] [place] [address], [place] [address] Aug, [facility] [address] [id number] [address] [place] [address], [place] [address] Jul, [facility] [address] [id number] [address] [place] [address], [place] [address] Jul, [facility] [address] [id number] [address] [place] [address], [place] [address] Jul, [facility] [address] [id number] [address] [place] [address], [place] [address] Jul, [facility] [address] [id number] [address] [place] [address], [place] [address] 06 Jul, 2012 [facility] [address] [id number] [address] [address] Jul, [facility] [address] [id number] [address] [place] [address], [place] [address] Jul, [facility] [address] [id number] [address] [place] [address], [place] [address] Jul, [facility] [address] [id number] [address] [place] [address], [place] [address] Jun, [facility] [address] [id number] [address] [place] [address] Jun, [facility] [address] [id number] [address] [place] [address], [place] [address] Jun, [facility] [address] [id number] [address] [place] [address] Jun, [facility] [address] [id number] [address] [place] [address], [place] [address] Jun, [facility] [address] [id number] [address] [place] [address] Jun, [facility] [address] [id number] [address] [place] [address] May, [facility] [address] [id number] [address] [place] [address] May, [facility] [address] [id number] [address] [place] [address] May, [facility] [address] [id number] [address] [place] [address] May, [facility] [address] [id number] [address] [place] [address], [place] [address] Apr, [facility] [address] [id number] [address] [place] [address] Apr, [facility] [address] [id number] [address] [place] [address] Mar, [facility] [address] [id number] [address] [place] [address], [place] [address] 28 Jan, 2012 [facility] [address] [id number] [address] [place] [address], [place] [address] 20 Jan, 2012 [facility] [address] [id number] [address] [place] [address], [place] [address] 16 Jan, 2012 [facility] [address] [id number] [address] [place] [address], [place] [address] 15 Jan, 2012 [facility] [address] [id number] [address] [place] [address], [place] [address] 14 Jan, 2012 [facility] [address] [id number] [address] [place] [address], [place] [address] 14 Jan, 2012 [facility] [address] [id number] [address] [place] [address], [place] [address] 07 Jan, 2012 [facility] [address] [id number] [address] [place] [address], [place] [address] December, [facility] [address] [id number] [address] [place] [address], [place] [address] 10 Dec, 2011 [facility] [address] [id number] [address] [place] [address], [place] [address] 09 Dec, 2011 [facility] [address] [id number] [address] [place] [address], [place] [address] 02 Dec, 2011 [facility] [address] [id number] [address] [place] [address], [place] [address] 25 Nov, 2011 [facility] [address] [id number] [address] [place] [address], [place] [address] 05 Nov, 2011 [facility] [address] [id number] [address] [place] [address], [place] [address] 29 Oct, 2011 [facility] [address] [id number] [address] [place] [address], [place] [address] 28 Oct, 2011 [facility] [address] [id number] [address] [place] [address], [place] [address] Oct, [facility] [address] [id number] [address] [place] [address], [place] [address] Sep, [facility] [address] [id number] [address] [place] [address], [place] [address] Sep, [facility] [address] [id number] [address] [place] [address], [place] [address] Sep, [facility] [address] [id number] [address] [place] [address], [place] [address] Aug, [facility] [address] [id number] [address] [place] [address], [place] [address] Aug, [facility] [address] [id number] [address] [place] [address], [place] [address] Aug, [facility] [address] [id number] [address] [place] [address], [place] [address] Aug, [facility] [address] [id number] [address] [place] [address], [place] [address] Aug, [facility] [address] [id number] [address] [place] [address], [place] [address] Aug, [facility] [address] [id number] [address] [place] [address], [place] [address] Aug, [facility] [address] [id number] [address] [place] [address], [place] [address] Jul, [facility] [address] [id number] [address] [place] [address], [place] [address] Jul, [facility] [address] [id number] [address] [place] [address], [place] [address] Jun, [facility] [address] [id number] [address] [place] [address], [place] [address] Jun, [facility] [address] [id number] [address] [place] [address], [place] [address] Jun, [facility] [address] [id number] [address] [place] [address], [place] [address] 15 Jun, 2011 [facility] [address] [id number] [address] [place] [address], [place] [address] 14 Jun, 2011 [facility] [address] [id number] [address] [place] [address], [place] [address] 14 Jun, 2011 [facility] [address] [id number] [address] [place] [address], [place] [address] 07 Jun, 2011 [facility] [address] [id number] [address] [place] [address], [place] [address] 07 Jun, 2011 [facility] [address] [id number] [address] [place] [address], [place] [address] 02 Jun, 2011 [facility] [address] [id number] [address] [place] [address], [place] [address] Jun, [facility] [address] [id number] [address] [place] [address], [place] [address] 31 May, 2011 [facility] [address] [id number] [address] [place] [address], [place] [address] 31 May, 2011 [facility] [address] [id number] [address] [place] [address], [place] [address] 25 May, 2011 [facility] [address] [id number] [address] [place] [address], [place] [address] 24 May, 2011 [facility] [address] [id number] [address] [place] [address], [place] [address] 18 May, 2011 [facility] [address] [id number] [address] [place] [address], [place] [address] May, [facility] [address] [id number] [address] [place] [address], [place] [address] Feb, [facility] [address] [id number] [address] [place] [address], [place] [address] December, [facility] [address] [id number] [address] [place] [address], [place] [address] Jul, [facility] [address] [id number] [address] [place] [address] [address], [address] [facility] [address] [id number] [address] [place] [address] Jul, [facility] [address] [id number] [address] [place] [address] Jul, [facility] [address] [id number] [address] [place] [address] Jun, [facility] [address] [id number] [address] [place] [address] Jul, [facility] [address] [id number] [address] [place] [address] Jul, [facility] [address] [id number] [address] [place] [address] Jul, [facility] [address] [id number] [address] [place] [address] Jul, [facility] [address] [id number] [address] [place] [address] Jul, [facility] [address] [id number] [address] [place] [address] Jul, [facility] [address] [id number] [address] [place] [address] Jan, [facility] [address] [id number] [address] [place] [address] 16 Sep, 2008 [facility] [address] [id number] [address] [place] [address] Sep, IMMUNIZATIONS No Known Immunizations SOCIAL HISTORY [...]
--- OUTSIDE RECORDS SUMMARY | 2020-01-27 10:03 | XMS REPORT ---
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 Name Role Phone LETTY WILKINS Unavailable PROBLEMS Type Condition ICD9-CM Code KUL99-AU Code Onset Dates Condition S tatus SNOMED Code Problem Hypertension I10 Active 2555171 3 Problem Generalized anxiety disorder F41.1 A ctive 491884098 Problem History of colon polyps Z86.010 Active 773959862 Problem History of diverticulitis Z87.19 Acti ve [id number] Problem Family history of diabetes mellitus Z83.3 Active 877031179 Problem Excessive and frequent menstruation with irregular cycle N92.1 Active 838553436 Problem Hot flashes N95.1 Active 80786084 8 Problem Gastroesophageal reflux disease with esophagitis K 21.0 Active 483043740 Problem History of ovarian cyst Z87.42 Active 91972666 Problem Diverticulitis K57.92 Active 55783 6006 Problem Dense breast tissue R92.2 Active 714868985 Problem Perimenopausal N95.1 Active 51818 8027749035 Problem Mitral valve prolapse I34.1 Active 598354538 Problem Abnormal uterine bleeding (AUB) N93.9 Active 48974332127921 Problem Tachycardia R00.0 Active 6965687 ALLERGIES No Information ENCOUNTERS Encounter Location Date Diagnosis [facility] [address] [facility] [id number] [address] [place] [phone] December, [facility] [address] [facility] [id number] [address] [place] [phone] Nov, [place] [address] [facility] [id number] [address] [place] [phone] 16 Nov, 2019 Generalized anxiety disorder F41.1 and Bereavement Z63.4 [place] [address] [address] [facility] [id number] [address] [place] [address] Nov, [facility] [address] [id number] [address] [place] [id number] Nov, [facility] [address] [id number] [address] [place] [phone] 06 Nov, 2019 Generalized anxiety disorder F41.1 [facility] [address] [id number] [address] [place] [id number] 30 Oct, 2019 Generalized anxiety disorder F41.1 and Bereavement Z63.4 [facility] [address] [id number] [address] [place] [phone] 16 Oct, 2019 Acute non-recurrent sinusiti s, unspecified location J01.90 [facility] [address] [id number] [address] [place] [phone] 05 Oct, 2019 Acute non-recurrent frontal sinusitis J01.10 [facility] [address] [id number] [address] [place] [phone] 27 Sep, 2019 Generalized anxiety disorder F41.1 and Bereavement Z63.4 [facility] [address] [id number] [address] [place] [phone] 17 Sep, 2019 [facility] [address] [id number] [address] [place] [address] 11 Sep, 2019 Generalized anxiety disorder F41.1 and Bereavement Z63.4 [facility] [address] [id number] [address] [place] [address] Aug, Generalized anxiety disorder F41.1 and Bereavement Z63.4 [facility] [address] [id number] [address] [place] [phone] Aug, Generalized anxiety disorder F41.1 [facility] [address] [facility] [id number] [address] [place] [phone] 06 Aug, 2019 Viral upper respiratory trac t infection J06.9 [facility] [address] [id number] [address] [place] [phone] Jul, Generalized anxiety disorder F41.1 and Bereavement Z63.4 [facility] [address] [facility] [id number] [address] [place] [address] Jul, Acute non-recurrent frontal sinusitis J01.10 [facility] [address] [facility] [id number] [address] [place] [phone] Jul, [facility] [address] [facility] [id number] [address] [place] [phone] Jul, Sore throat J02.9 and Uvulit is K12.2 [facility] [address] [facility] [id number] [address] [place] [phone] Jul, Generalized anxiety disorder F41.1 [facility] [address] [id number] [place] [address] Jul, Caries K02.9 [facility] [address] [facility] [id number] [address] [place] [address] Jun, Generalized anxiety disorder F41.1 [facility] [address] [facility] [id number] [address] [place] [phone] Jun, Generalized anxiety disorder F41.1 and Bereavement Z63.4 [facility] [address] [facility] [id number] [address] [place] [phone] May, Generalized anxiety disorder F41.1 [facility] [address] [facility] [id number] [address] [place] [address] May, Dysuria R30.0 [facility] [address] [facility] [id number] [address] [place] [phone] May, Generalized anxiety disorder F41.1 and Bereavement Z63.4 [facility] [address] [facility] [id number] [address] [place] [phone] May, [facility] [address] [facility] [id number] [address] [place] [phone] Apr, Generalized anxiety disorder F41.1 and Bereavement Z63.4 [facility] [address] [facility] [id number] [address] [place] [address] Apr, Generalized anxiety disorder F41.1 [facility] [address] [id number] [address] [place] [address] Mar, Caries K02.9 ; Dental examin ation Z01.20 ; Periodontitis K05.30 and Oral health maintenance status requiring routine preventive dental care K08.9 [facility] [address] [facility] [id number] [address] [place] [address] Mar, Generalized anxiety disorder F41.1 [facility] [address] [facility] [id number] [address] [place] [phone] Mar, Gastrointestinal hemorrhage associated with gastroduodenitis K29.91 [facility] [address] [facility] [id number] [address] [place] [address] Mar, Generalized anxiety disorder F41.1 and Bereavement Z63.4 [facility] [address] [facility] [id number] [address] [place] [phone] Mar, [facility] [address] [facility] [id number] [address] [place] [phone] Mar, [facility] [address] [facility] [id number] [address] [place] [address] Mar, [facility] [address] [facility] [id number] [address] [place] [address] Mar, Tachycardia R00.0 and Essent ial hypertension I10 [facility] [address] [facility] [id number] [address] [place] [address] Feb, Generalized anxiety disorder F41.1 [facility] [address] [facility] [id number] [address] [place] [phone] Feb, Generalized anxiety disorder F41.1 and Bereavement Z63.4 [facility] [address] [facility] [id number] [address] [place] [address] Feb, Generalized anxiety disorder F41.1 [facility] [address] [place] [id number] [address] [place] [address] Feb, Generalized anxiety disorder F41.1 and Bereavement Z63.4 [facility] [address] [facility] [id number] [address] [place] [address] Jan, [facility] [address] [place] [id number] [address] [place] [address] Jan, Breast cancer screening by [facility] c[facility]shaw Z12.31 [place] [address] [place] [id number] [place] [address] Jan, Generalized anxiety disorder F41.1 and Bereavement Z63.4 [facility] [address] [place] [id number] [address] [place] [address] Jan, [facility] [address] [place] [id number] [address] [place] [address] December, Generalized anxiety disorder F41.1 and Bereavement Z63.4 [facility] [address] [place] [id number] [address] [place] [address] December, Diverticulitis K57.92 ; Dysu nick R30.0 ; Other constipation K59.09 and Lower abdominal pain R10.30 [facility] [address] [facility] [id number] [address] [place] [address] Nov, Diverticulitis K57.92 [facility] [address] [place] [id number] [address] [place] [address] Nov, Generalized anxiety disorder F41.1 and Bereavement Z63.4 [facility] [address] [place] [id number] [address] [place] [address] Nov, Generalized anxiety disorder F41.1 and Bereavement Z63.4 [facility] [address] [place] [id number] [address] [place] [address] Nov, Diverticulitis K57.92 [facility] [address] [facility] [id number] [address] [place] [address] Oct, Diverticulitis K57.92 [facility] [address] [facility] [id number] [address] [place] [address] Oct, Diverticulitis K57.92 [facility] [address] [facility] [id number] [address] [place] [address] Oct, Generalized anxiety disorder F41.1 [facility] [address] [facility] [id number] [address] [place] [address] Oct, Right lower quadrant abdomin al pain R10.31 and Diverticulitis K57.92 [facility] [address] [facility] [id number] [address] [place] [address] Sep, Generalized anxiety disorder F41.1 and Bereavement Z63.4 [facility] [address] [facility] [id number] [address] [place] [address] Aug, [facility] [address] [facility] [id number] [address] [place] [id number] Aug, Generalized anxiety disorder F41.1 and Bereavement Z63.4 [facility] [address] [id number] [place] [address] Aug, Caries K02.9 [facility] [address] [facility] [id number] [address] [place] [address] Jul, Generalized anxiety disorder F41.1 and Bereavement Z63.4 [facility] [address] [facility] [id number] [address] [place] [address] Jul, Other acute gastritis withou t hemorrhage K29.00 ; Generalized anxiety disorder F41.1 ; Tachycardia R00.0 and Essential hypertension I10 [facility] [address] [facility] [id number] [address] [place] [address] Jul, Generalized anxiety disorder F41.1 and Bereavement Z63.4 [facility] [address] [facility] [id number] [address] [place] [id number] Jun, Generalized anxiety disorder F41.1 and Bereavement Z63.4 [facility] [address] [facility] [id number] [address] [place] [address] Jun, Generalized anxiety disorder F41.1 and Bereavement Z63.4 [facility] [address] [facility] [id number] [place] [address] 02 Jun, 2018 Dental examination Z01.20 [facility] [address] [facility] [id number] [address] [place] [phone] May, Generalized anxiety disorder F41.1 and Bereavement Z63.4 [facility] [address] [facility] [id number] [address] [place] [address] 08 May, 2018 Encounter for immunization Z 23 [facility] [address] [facility] [id number] [address] [place] [address] 08 May, 2018 Generalized anxiety disorder F41.1 and Bereavement Z63.4 [facility] [address] [facility] [id number] [address] [place] [address] May, [facility] [address] [facility] [id number] [address] [place] [phone] 24 Apr, 2018 Generalized anxiety disorder F41.1 and Bereavement Z63.4 [facility] [address] [facility] [id number] [address] [place] [address] 17 Apr, 2018 [facility] [address] [facility] [id number] [address] [place] [address] 13 Apr, 2018 Diverticulitis K57.92 [facility] [address] [facility] [id number] [address] [place] [phone] 10 Apr, 2018 Generalized anxiety disorder F41.1 and Bereavement Z63.4 [facility] [address] [facility] [id number] [address] [place] [phone] Mar, [facility] [address] [id number] [address] [place] [phone] Mar, Diverticulitis K57.92 [facility] [address] [id number] [address] [place] [phone] Mar, Generalized anxiety disorder F41.1 and Bereavement Z63.4 [facility] [address] [id number] [address] [place] [address] Mar, Hypertension I10 [facility] [address] [id number] [address] [place] [address] Mar, Generalized anxiety disorder F41.1 and Bereavement Z63.4 [facility] [address] [id number] [address] [place] [id number] Feb, Generalized anxiety disorder F41.1 and Bereavement Z63.4 [facility] [address] [id number] [address] [place] [address] Feb, [facility] [address] [id number] [address] [place] [address] Feb, Generalized anxiety disorder F41.1 and Bereavement Z63.4 [facility] [address] [id number] [address] [place] [address] Feb, Generalized anxiety disorder F41.1 and Bereavement Z63.4 [facility] [address] [facility] [id number] [address] [place] [address] Jan, Hypertension I10 and Acute n on-recurrent maxillary sinusitis J01.00 [facility] [address] [id number] [address] [place] [address] December, [facility] [address] [id number] [address] [place] [phone] December, Hypertension I10 [facility] [address] [id number] [address] [place] [address] December, Generalized anxiety disorder F41.1 [facility] [address] [id number] [place] [address] 16 Oct, 2017 Encounter for dental examina tion Z01.20 [facility] [address] [id number] [place] [address] 06 Oct, 2017 Encounter for dental examina tion Z01.20 [facility] [address] [id number] [place] [address] 02 Oct, 2017 Dental examination Z01.20 [facility] [address] [id number] [address] [place] [address] Oct, Generalized anxiety disorder F41.1 [facility] [address] [id number] [place] [address] Aug, Dental examination Z01.20 [facility] [address] [id number] [address] [place] [address] Aug, Generalized anxiety disorder F41.1 [facility] [address] [id number] [address] [place] [address] Aug, [facility] [address] [id number] [address] [place] [phone] 09 Aug, 2017 Encounter for dental examina tion Z01.20 [facility] [address] [id number] [address] [place] [address] Aug, Subacute maxillary sinusitis J01.00 [facility] [address] [id number] [place] [address] Jul, Dental examination Z01.20 [facility] [address] [id number] [address] [place] [address] Jul, Generalized anxiety disorder F41.1 [facility] [address] [id number] [address] [place] [address] Jul, Diverticulitis K57.92 [facility] [address] [id number] [address] [place] [address] 28 Jun, 2017 Encounter for immunization Z 23 [facility] [address] [id number] [address] [place] [address] 22 Jun, 2017 Dental examination Z01.20 [facility] [address] [id number] [address] [place] [address] 14 Jun, 2017 Generalized anxiety disorder F41.1 [facility] [address] [id number] [address] [place] [address] 07 Jun, 2017 Dental examination Z01.20 [facility] [address] [id number] [address] [place] [address] May, [facility] [address] [id number] [address] [place] [address] [id number] May, Dental examination Z01.20 [facility] [id number] [place] [address] [id number] May, Dental examination Z01.20 [facility] [address] [id number] [address] [place] [address] May, Dental examination Z01.20 [facility] [address] [id number] [address] [place] [address] May, [facility] [address] [id number] [address] [place] [address] May, Generalized anxiety disorder F41.1 [facility] [address] [id number] [address] [place] [address] 05 May, 2017 Localized edema R60.0 ; Yeas t vaginitis B37.3 and Gastroesophageal reflux disease with esophagitis K21.0 [facility] [address] [id number] [address] [place] [address] [id number] Apr, Dental examination Z01.20 [facility] [address] [id number] [address] [place] [address] 21 Apr, 2017 Dental examination Z01.20 [facility] [address] [id number] [place] [address] 05 Apr, 2017 Dental examination Z01.20 [facility] [address] [id number] [address] [place] [address] Mar, Dyspepsia R10.13 [facility] [address] [id number] [address] [place] [address] Mar, Generalized anxiety disorder F41.1 [facility] [address] [id number] [address] [place] [address] Mar, Encounter for dental examina tion Z01.20 [facility] [address] [id number] [address] [place] [address] [id number] Mar, [facility] [address] [id number] [address] [place] [address] [id number] Mar, Dental examination Z01.20 [facility] [address] [id number] [address] [place] [address] Feb, Hypertension I10 and Tachyca rdia R00.0 [facility] [address] [id number] [address] [place] [address] Feb, [facility] [address] [id number] [address] [place] [address] Feb, Generalized anxiety disorder F41.1 [facility] [address] [id number] [address] [place] [address] [id number] Feb, Dental examination Z01.20 [facility] [address] [id number] [address] [place] [address] Jan, Generalized anxiety disorder F41.1 [facility] [address] [id number] [address] [place] [address] December, Generalized anxiety disorder F41.1 [facility] [address] [id number] [address] [place] [address] [id number] December, Encounter for dental examina tion Z01.20 [facility] [address] [facility] [id number] [address] [place] [address] Nov, [facility] [address] [facility] [id number] [address] [place] [phone] Nov, [facility] [address] [facility] [id number] [address] [place] [phone] Nov, Generalized anxiety disorder F41.1 [facility] [address] [facility] [id number] [address] [place] [phone] 30 Oct, 2016 [facility] [address] [facility] [id number] [address] [place] [id number] Oct, Dental examination Z01.20 [facility] [address] [facility] [id number] [address] [place] [address] Oct, Vaginal dryness N89.8 [facility] [address] [place] [id number] [address] [place] [id number] Oct, Pseudoseizures F44.5 [facility] [address] [facility] [id number] [address] [place] [phone] Oct, Generalized anxiety disorder F41.1 [facility] [address] [facility] [id number] [address] [place] [phone] 28 Sep, 2016 Abnormal uterine bleeding (A UB) N93.9 ; Vaginal dryness N89.8 and Screening breast examination Z12.39 [facility] [address] [facility] [id number] [address] [place] [address] Sep, Dental examination Z01.20 [facility] [address] [facility] [id number] [address] [place] [address] Sep, Generalized anxiety disorder F41.1 [facility] [address] [facility] [id number] [address] [place] [address] 06 Sep, 2016 Unspecified ovarian cyst, ri ght side N83.201 ; Unspecified ovarian cyst, left side N83.202 ; Yeast infection of the vagina B37.3 ; Mitral valve prolapse I34.1 and Hypertension I10 [facility] [address] [id number] [address] [place] [id number] 18 Aug, 2016 Generalized anxiety disorder F41.1 [facility] [address] [id number] [address] [place] [id number] 28 Jul, 2016 [facility] [address] [facility] [id number] [address] [place] [id number] Jul, Generalized anxiety disorder F41.1 [facility] [address] [id number] [address] [place] [id number] 15 Jun, 2016 Generalized anxiety disorder F41.1 [facility] [address] [facility] [id number] [address] [place] [id number] 28 May, 2016 Encounter for immunization Z 23 [facility] [address] [facility] [id number] [address] [place] [id number] 17 May, 2016 Generalized anxiety disorder F41.1 and Depressive disorder, not elsewhere classified F32.9 [facility] [address] [facility] [id number] [address] [place] [id number] 28 Apr, 2016 Hypertension I10 [facility] [address] [facility] [id number] [address] [place] [id number] 22 Apr, 2016 Cervicalgia M54.2 [facility] [address] [facility] [id number] [address] [place] [id number] 12 Apr, 2016 Cervicalgia M54.2 [facility] [address] [facility] [id number] [address] [place] [id number] 09 Mar, 2016 Generalized anxiety disorder F41.1 and Depressive disorder, not elsewhere classified F32.9 [facility] [address] [id number] [address] [place] [address] [id number] 14 Feb, 2016 Visit for dental examination Z01.20 [facility] [address] [facility] [id number] [address] [place] [id number] 11 Feb, 2016 Pseudoseizures F44.5 ; Migra ine without status migrainosus, not intractable, unspecified migraine type G43.909 and Essential hypertension I10 [facility] [address] [id number] [place] [id number] 06 Feb, 2016 Dental examination Z01.20 [facility] [address] [facility] [id number] [address] [place] [id number] 05 Feb, 2016 Generalized anxiety disorder F41.1 and Depressive disorder, not elsewhere classified F32.9 [facility] [address] [facility] [id number] [address] [place] [address] Jan, Tachycardia R00.0 [place] [address] [address] [facility] [id number] [address] [place] [address] December, Eustachian tube dysfunction, bilateral H69.83 [facility] [address] [facility] [id number] [address] [place] [address] December, Generalized anxiety disorder F41.1 and Depressive disorder, not elsewhere classified F32.9 [facility] [address] [facility] [id number] [address] [place] [id number] 29 Nov, 2015 [facility] [address] [facility] [id number] [address] [place] [id number] 28 Nov, 2015 [facility] [address] [facility] [id number] [address] [place] [id number] 20 Nov, 2015 Hypertension I10 ; Onychomyc [...] and Complex cyst of left ovary N83.29 [facility] [address] [facility] [id number] [address] [place] [id number] 14 Nov, 2016 Sinusitis J32.9 [facility] [address] [place] [id number] [address] [place] [address] Oct, Complex cyst of left ovary N 83.29 [place] [address] [address] Oct, Onychomycosis B35.1 [facility] [address] [place] [id number] [address] [place] [address] [id number] Oct, Dental examination Z01.20 [place] [address] [address] 09 Oct, 2015 Well woman exam Z01.419 [...] R92.2 and History of colon polyps Z86.010 [place] [address] [address] Oct, Generalized anxiety disorder F41.1 and Depressive disorder, not elsewhere classified F32.9 [place] [address] [address] Sep, Hypertension I10 and Onychom ycosis B35.1 [place] [address] [address] Sep, Skin tags, multiple acquired L91.8 [place] [address] [address] Aug, [place] [address] [address] Aug, [place] [address] [id number] Aug, [facility] [address] [facility] [id number] [address] [place] [address] Aug, Generalized anxiety disorder F41.1 and Depressive disorder, not elsewhere classified F32.9 [facility] [address] [facility] [id number] [address] [place] [id number] Jul, Skin lesion L98.9 [facility] [address] [facility] [id number] [address] [place] [address] Jun, Generalized anxiety disorder F41.1 and Depressive disorder, not elsewhere classified F32.9 [facility] [address] [facility] [id number] [address] [place] [address] Jun, [facility] [address] [facility] [id number] [address] [place] [address] Jun, Generalized anxiety disorder F41.1 [facility] [address] [place] [id number] [address] [place] [phone] May, Encounter for immunization Z 23 and Right shoulder pain M25.511 [facility] [address] [facility] [id number] [address] [place] [address] Apr, [facility] [address] [facility] [id number] [address] [place] [id number] 14 Apr, 2015 Generalized anxiety disorder 300.02 and Depressive disorder, not elsewhere classified 311 [facility] [address] [id number] [address] [place] [address] [id number] Mar, Dental examination V72.2 [facility] [address] [facility] [id number] [address] [place] [address] Mar, Generalized anxiety disorder 300.02 and Depressive disorder, not elsewhere classified 311 [facility] [address] [facility] [id number] [address] [place] [id number] Mar, Depression, major, recurrent , 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.35 and 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 [facility] [address] [facility] [id number] [address] [place] [id number] Feb, Generalized anxiety disorder 300.02 and Depressive disorder, not elsewhere classified 311 [facility] [address] [id number] [address] [place] [address] [id number] Feb, Dental examination V72.2 [facility] [address] [facility] [id number] [address] [place] [id number] 09 Jan, 2015 Generalized anxiety disorder 300.02 and Depressive disorder, not elsewhere classified 311 [facility] [address] [id number] [address] [place] [address] Jan, [facility] [address] [facility] [id number] [address] [place] [id number] December, Generalized anxiety disorder 300.02 and Depressive disorder, not elsewhere classified 311 [facility] [address] [facility] [id number] [address] [place] [id number] December, Major depressive disorder, r ecurrent, unspecified 296.30 and Panic disorder with agoraphobia 300.21 [facility] [address] [facility] [id number] [address] [place] [address] Nov, [facility] [address] [facility] [id number] [address] [place] [id number] Nov, [facility] [address] [facility] [id number] [address] [place] [id number] Oct, [facility] [address] [facility] [id number] [address] [place] [address] Oct, [facility] [address] [facility] [id number] [address] [place] [id number] Oct, [facility] [address] [facility] [id number] [address] [place] [id number] Oct, [facility] [address] [facility] [id number] [address] [place] [id number] Sep, [facility] [address] [facility] [id number] [address] [place] [phone] Sep, [facility] [address] [id number] [address] [place] [address], [place] [address] Sep, 2014 [facility] [address] [id number] [address] [place] [address], [place] [address] Sep, 2014 [facility] [place] [facility] [address] [id number] [address] [place] [address], [place] [address] Sep, 2014 [facility] [place] [facility] [address] [id number] [address] [place] [address], [place] [address] Sep, 2014 [facility] [address] [id number] [address] [place] [address], [place] [address] Sep, 2014 [facility] [place] [facility] [address] [id number] [address] [place] [address], [place] [address] Sep, 2014 [facility] [address] [id number] [address] [place] [address], [place] [address] Sep, 2014 [facility] [address] [id number] [address] [place] [address], [place] [address] Sep, 2014 [facility] [address] [id number] [address] [place] [address], [place] [address] Aug, [facility] [address] [id number] [address] [place] [address], [place] [address] Aug, [facility] [address] [id number] [address] [place] [address], [place] [address] Jul, [facility] [place] [facility] [address] [id number] [address] [place] [address], [place] [address] Jul, [facility] [place] [facility] [address] [id number] [address] [place] [address], [place] [address] 18 Jul, 2014 [facility] [place] [facility] [address] [id number] [address] [place] [address], [place] [address] Jul, [facility] [place] [facility] [address] [id number] [address] [place] [address], [place] [address] 11 Jul, 2014 [facility] [address] [id number] [address] [place] [address] [place] [address] Jul, [facility] [address] [id number] [address] [place] [address], [place] [address] Jul, [facility] [place] [address] [id number] [address] [place] [address], [place] [address] Jul, [facility] [address] [id number] [address] [place] [address], [place] [address] Jul, [facility] [place] [address] [id number] [address] [place] [address], [place] [address] Jul, [facility] [address] [id number] [address] [place] [address], [place] [address] Jul, [facility] [address] [id number] [address] [place] [address], [place] [address] Jul, [facility] [address] [id number] [address] [place] [address], [place] [address] Jun, [facility] [address] [id number] [address] [place] [address], [place] [address] Jun, [facility] [address] [id number] [address] [place] [address], [place] [address] May, [facility] [address] [id number] [address] [place] [address], [place] [address] May, [facility] [place] [facility] [address] [id number] [address] [place] [address], [place] [address] May, [facility] [place] [facility] [address] [id number] [address] [place] [address], [place] [address] May, [facility] [place] [facility] [address] [id number] [address] [place] [address], [place] [address] May, [facility] [place] [facility] [address] [id number] [address] [place] [address], [place] [address] May, [facility] [place] [facility] [address] [id number] [address] [place] [address], [place] [address] May, [facility] [place] [facility] [address] [id number] [address] [place] [address], [place] [address] May, [facility] [place] [facility] [address] [id number] [address] [place] [address], [place] [address] May, [facility] [place] [facility] [address] [id number] [address] [place] [address], [place] [address] May, [facility] [place] [facility] [address] [id number] [address] [place] [address], [place] [address] May, [facility] [place] [facility] [address] [id number] [address] [place] [address], [place] [address] May, [facility] [place] [facility] [address] [id number] [address] [place] [address], [place] [address] Apr, [facility] [place] [facility] [address] [id number] [address] [place] [address], [place] [address] 30 Apr, 2014 [facility] [place] [facility] [address] [id number] [address] [place] [address], [place] [address] Apr, [facility] [place] [facility] [address] [id number] [address] [place] [address], [place] [address] Apr, [facility] [place] [facility] [address] [id number] [address] [place] [address], [place] [address] Apr, [facility] [place] [facility] [address] [id number] [address] [place] [address], [place] [address] Apr, [facility] [place] [facility] [address] [id number] [address] [place] [address], [place] [address] Feb, [facility] [place] [facility] [address] [id number] [address] [place] [address], [place] [address] Feb, [facility] [place] [facility] [address] [id number] [address] [place] [address], [place] [address] Feb, [facility] [place] [facility] [address] [id number] [address] [place] [address], [place] [address] Feb, [facility] [place] [facility] [address] [id number] [address] [place] [address], [place] [address] Feb, [facility] [address] [id number] [facility] [address] Feb, [facility] [place] [facility] [address] [id number] [address] [place] [address], [place] [address] Jan, [facility] [address] [id number] [address] [place] [address], [place] [address] Jan, [facility] [place] [facility] [address] [id number] [address] [place] [address], [place] [address] Jan, [facility] [address] [id number] [address] [place] [address], [place] [address] Jan, [facility] [address] [id number] [address] [place] [address], [place] [address] Jan, [facility] [address] [id number] [address] [place] [address], [place] [address] Jan, [facility] [place] [facility] [address] [id number] [address] [place] [address], [place] [address] Jan, [facility] [address] [id number] [address] [place] [address], [place] [address] Jan, [facility] [place] [facility] [address] [id number] [address] [place] [address], [place] [address] December, [facility] [address] [id number] [address] [place] [address], [place] [address] December, [facility] [place] [facility] [address] [id number] [address] [place] [address], [place] [address] December, [facility] [place] [facility] [address] [id number] [address] [place] [address], [place] [address] December, [facility] [place] [facility] [address] [id number] [address] [place] [address], [place] [address] Nov, [facility] [place] [facility] [address] [id number] [address] [place] [address], [place] [address] Nov, [facility] [place] [facility] [address] [id number] [address] [place] [address] Nov, [facility] [address] [id number] [address] [place] [address], [place] [address] Nov, [facility] [address] [id number] [address] [place] [address], [place] [address] Nov, [facility] [address] [id number] [address] [place] [address], [place] [address] Nov, [facility] [address] [id number] [address] [place] [address], [place] [address] Nov, [facility] [address] [id number] [address] [place] [address], [place] [address] Nov, [facility] [address] [id number] [address] [place] [address], [place] [address] Oct, [facility] [address] [id number] [address] [place] [address], [place] [address] Oct, [facility] [address] [id number] [address] [place] [address], [place] [address] Sep, [facility] [address] [id number] [address] [place] [address], [place] [address] Sep[facility] [address] [id number] [address] [place] [address] [id number] Sep, [facility] [address] [id number] [address] [place] [address], [place] [address] Sep, [facility] [address] [id number] [address] [place] [address], [place] [address] Sep, [facility] [address] [id number] [address] [place] [address], [place] [address] Sep, [facility] [address] [id number] [address] [place] [address], [place] [address] Aug, [facility] [address] [id number] [address] [place] [address], [place] [address] Aug, [facility] [address] [id number] [address] [place] [address], [place] [address] Aug, [facility] [address] [id number] [address] [place] [address], [place] [address] Aug, [facility] [address] [id number] [address] [place] [address], [place] [address] Jul, [facility] [address] [id number] [address] [place] [address], [place] [address] Jul, [facility] [address] [id number] [address] [place] [address], [place] [address] Jul, [facility] [address] [id number] [address] [place] [address], [place] [address] Jul, [facility] [address] [id number] [address] [place] [address], [place] [address] Jun, [facility] [address] [id number] [address] [place] [address], [place] [address] Jun, [facility] [address] [id number] [address] [place] [address], [place] [address] May, [facility] [address] [id number] [address] [place] [address] May, [facility] [address] [id number] [address] [place] [address], [place] [address] May, [facility] [address] [id number] [address] [place] [address] 11 May, 2013 [facility] [address] [id number] [address] [place] [address], [place] [address] 10 May, 2013 [facility] [address] [id number] [address] [place] [address], [place] [address] 17 Apr, 2013 [facility] [address] [id number] [address] [place] [address], [place] [address] 10 Apr, 2013 [facility] [address] [id number] [address] [place] [address], [place] [address] Mar, [facility] [address] [id number] [address] [place] [address], [place] [address] Mar, [facility] [address] [id number] [address] [place] [address], [place] [address] Mar, [facility] [address] [id number] [address] [place] [address], [place] [address] Mar, [facility] [address] [id number] [address] [place] [address], [place] [address] Feb, [facility] [address] [id number] [address] [place] [address], [place] [address] Feb, [facility] [address] [id number] [address] [place] [address], [place] [address] Feb, [facility] [address] [id number] [address] [place] [address], [place] [address] Feb, [facility] [address] [id number] [address] [place] [address], [place] [address] Feb, [facility] [address] [id number] [address] [place] [address], [place] [address] Jan, [facility] [address] [id number] [address] [place] [address], [place] [address] Jan, [facility] [address] [id number] [address] [place] [address], [place] [address] Jan, [facility] [address] [id number] [address] [place] [address], [place] [address] Jan, [facility] [address] [id number] [address] [place] [address], [place] [address] Jan, [facility] [address] [id number] [address] [place] [address], [place] [address] December, [facility] [address] [id number] [address] [place] [address], [place] [address] December, [facility] [address] [id number] [address] [place] [address], [place] [address] 17 Nov, 2012 [facility] [address] [id number] [address] [place] [address], [place] [address] Nov, [facility] [address] [id number] [address] [place] [address], [place] [address] 19 Oct, 2012 [facility] [address] [id number] [address] [place] [address], [place] [address] Oct, [facility] [address] [id number] [address] [place] [address], [place] [address] 05 Oct, 2012 [facility] [address] [id number] [address] [place] [address], [place] [address] 14 Sep, 2012 [facility] [address] [id number] [address] [place] [address], [place] [address] 24 Aug, 2012 [facility] [address] [id number] [address] [place] [address], [place] [address] 16 Aug, 2012 [facility] [address] [id number] [address] [place] [address], [place] [address] 15 Aug, 2012 [facility] [address] [id number] [address] [place] [address], [place] [address] Aug, [facility] [address] [id number] [address] [place] [address], [place] [address] Jul, [facility] [address] [id number] [address] [place] [address], [place] [address] Jul, [facility] [address] [id number] [address] [place] [address], [place] [address] Jul, [facility] [address] [id number] [address] [place] [address], [place] [address] Jul, [facility] [address] [id number] [address] [place] [address], [place] [address] 06 Jul, 2012 [facility] [address] [id number] [address] [address] Jul, [facility] [address] [id number] [address] [place] [address], [place] [address] Jul, [facility] [address] [id number] [address] [place] [address], [place] [address] Jul, [facility] [address] [id number] [address] [place] [address], [place] [address] Jun, [facility] [address] [id number] [address] [place] [id number] Jun, [facility] [address] [id number] [address] [place] [address], [place] [address] Jun, [facility] [address] [id number] [address] [place] [id number] Jun, [facility] [address] [id number] [address] [place] [address], [place] [address] Jun, [facility] [address] [id number] [address] [place] [id number] Jun, [facility] [address] [id number] [address] [place] [id number] May, [facility] [address] [id number] [address] [place] [id number] May, [facility] [address] [id number] [address] [place] [id number] May, [facility] [address] [id number] [address] [place] [address] May, [facility] [address] [id number] [address] [place] [address], [place] [address] Apr, [facility] [address] [id number] [address] [place] [id number] Apr, [facility] [address] [id number] [address] [place] [id number] Mar, [facility] [address] [id number] [address] [place] [address], [place] [address] 28 Jan, 2012 [facility] [address] [id number] [address] [place] [address], [place] [address] 20 Jan, 2012 [facility] [address] [id number] [address] [place] [address], [place] [address] 16 Jan, 2012 [facility] [address] [id number] [address] [place] [address], [place] [address] 15 Jan, 2012 [facility] [address] [id number] [address] [place] [address], [place] [address] 14 Jan, 2012 [facility] [address] [id number] [address] [place] [address], [place] [address] 14 Jan, 2012 [facility] [address] [id number] [address] [place] [address], [place] [address] 07 Jan, 2012 [facility] [address] [id number] [address] [place] [address], [place] [address] December, [facility] [address] [id number] [address] [place] [address], [place] [id number] 10 Dec, 2011 [facility] [address] [id number] [address] [place] [address], [place] [id number] 09 Dec, 2011 [facility] [address] [id number] [address] [place] [address], [place] [address] 02 Dec, 2011 [facility] [address] [id number] [address] [place] [address], [place] [address] 25 Nov, 2011 [facility] [address] [id number] [address] [place] [address], [place] [id number] 05 Nov, 2011 [facility] [address] [id number] [address] [place] [address], [place] [address] 29 Oct, 2011 [facility] [address] [id number] [address] [place] [address], [place] [address] 28 Oct, 2011 [facility] [address] [id number] [address] [place] [address], [place] [address] Oct, [facility] [address] [id number] [address] [place] [address], [place] [address] Sep, [facility] [address] [id number] [address] [place] [address], [place] [address] Sep, [facility] [address] [id number] [address] [place] [address], [place] [address] Sep, [facility] [address] [id number] [address] [place] [address], [place] [address] Aug, [facility] [address] [id number] [address] [place] [address], [place] [address] Aug, [facility] [address] [id number] [address] [place] [address], [place] [address] Aug, [facility] [address] [id number] [address] [place] [address], [place] [address] Aug, [facility] [address] [id number] [address] [place] [address], [place] [address] Aug, [facility] [address] [id number] [address] [place] [address], [place] [address] Aug, [facility] [address] [id number] [address] [place] [address], [place] [address] Aug, [facility] [address] [id number] [address] [place] [address], [place] [address] Jul, [facility] [address] [id number] [address] [place] [address], [place] [address] Jul, [facility] [address] [id number] [address] [place] [address], [place] [address] Jun, [facility] [address] [id number] [address] [place] [address], [place] [address] Jun, [facility] [address] [id number] [address] [place] [address], [place] [address] Jun, [facility] [address] [id number] [address] [place] [address], [place] [address] 15 Jun, 2011 [facility] [address] [id number] [address] [place] [address], [place] [address] 14 Jun, 2011 [facility] [address] [id number] [address] [place] [address], [place] [address] 14 Jun, 2011 [facility] [address] [id number] [address] [place] [address], [place] [address] 07 Jun, 2011 [facility] [address] [id number] [address] [place] [address], [place] [address] 07 Jun, 2011 [facility] [address] [id number] [address] [place] [address], [place] [address] 02 Jun, 2011 [facility] [address] [id number] [address] [place] [address], [place] [address] Jun, [facility] [address] [id number] [address] [place] [address], [place] [address] 31 May, 2011 [facility] [address] [id number] [address] [place] [address], [place] [address] 31 May, 2011 [facility] [address] [id number] [address] [place] [address], [place] [address] 25 May, 2011 [facility] [address] [id number] [address] [place] [address], [place] [address] 24 May, 2011 [facility] [address] [id number] [address] [place] [address], [place] [address] 18 May, 2011 [facility] [address] [id number] [address] [place] [address], [place] [address] May, [facility] [address] [id number] [address] [place] [address], [place] [address] Feb, [facility] [address] [id number] [address] [place] [address], [place] [address] December, [facility] [address] [id number] [address] [place] [address], [place] [address] Jul, [facility] [address] [id number] [address] [place] [id number] 29 Jul, 2010 [facility] [address] [id number] [address] [place] [id number] Jul, [facility] [address] [id number] [address] [place] [id number] Jul, [facility] [address] [id number] [address] [place] [id number] Jun, [facility] [address] [id number] [address] [place] [id number] Jul, [facility] [address] [id number] [address] [place] [id number] Jul, [facility] [address] [id number] [address] [place] [id number] Jul, [facility] [address] [id number] [address] [place] [id number] Jul, [facility] [address] [id number] [address] [place] [id number] Jul, [facility] [address] [id number] [address] [place] [id number] Jul, [facility] [address] [id number] [address] [place] [id number] Jan, [facility] [address] [id number] [address] [place] [id number] 16 Sep, 2008 [facility] [address] [id number] [address] [place] [id number] Sep, IMMUNIZATIONS No Known Immunizations SOCIAL HISTORY [...]
--- OUTSIDE RECORDS SUMMARY | 2020-01-27 10:03 | XMS REPORT ---
Author Author Silvia Anthony Organization [facility] Address [address] [place] [address] Care Team Providers Care Burial Vault Maker Name Role Phone ROBERT Anthony Unavailable PROBLEMS Type Condition ICD9-CM Code NTQ24-BC Code Onset Dates Condition S tatus SNOMED Code Problem Hypertension I10 Active 1091358 3 Problem Generalized anxiety disorder F41.1 A ctive 874155709 Problem History of colon polyps Z86.010 Active 059446449 Problem History of diverticulitis Z87.19 Acti ve 487798019907927 Problem Family history of diabetes mellitus Z83.3 Active 256190386 Problem Excessive and frequent menstruation with irregular cycle N92.1 Active 473960584 Problem Hot flashes N95.1 Active 52975147 8 Problem Gastroesophageal reflux disease with esophagitis K 21.0 Active 430188250 Problem History of ovarian cyst Z87.42 Active 85809482 Problem Diverticulitis K57.92 Active 09246 6006 Problem Dense breast tissue R92.2 Active 335404816 Problem Perimenopausal N95.1 Active 76132 5154188369 Problem Mitral valve prolapse I34.1 Active 366333124 Problem Abnormal uterine bleeding (AUB) N93.9 Active 73978840337924 Problem Tachycardia R00.0 Active 1067676 ALLERGIES No Information ENCOUNTERS Encounter Location Date Diagnosis [facility] [address] [facility] [id number] [address] [place] [address] Nov, [facility] [address] [facility] [id number] [address] [place] [address] Nov, [facility] [address] [facility] [id number] [address] [place] [id number] Nov, [facility] [address] [facility] [id number] [address] [place] [address] Nov, Generalized anxiety disorder F41.1 [facility] [address] [id number] [address] [place] [address] 30 Oct, 2019 Generalized anxiety disorder F41.1 and Bereavement Z63.4 [facility] [address] [id number] [address] [place] [address] 16 Oct, 2019 Acute non-recurrent sinusiti s, unspecified location J01.90 [facility] [address] [id number] [address] [place] [address] 05 Oct, 2019 Acute non-recurrent frontal sinusitis J01.10 [facility] [address] [id number] [address] [place] [address] 27 Sep, 2019 Generalized anxiety disorder F41.1 and Bereavement Z63.4 [facility] [address] [facility] [id number] [address] [place] [address] 17 Sep, 2019 [facility] [address] [facility] [id number] [address] [place] [address] Sep, Generalized anxiety disorder F41.1 and Bereavement Z63.4 [facility] [address] [facility] [id number] [address] [place] [address] 15 Aug, 2019 Generalized anxiety disorder F41.1 and Bereavement Z63.4 [facility] [address] [facility] [id number] [address] [place] [address] Aug, Generalized anxiety disorder F41.1 [facility] [address] [facility] [id number] [address] [place] [address] 06 Aug, 2019 Viral upper respiratory trac t infection J06.9 [facility] [address] [facility] [id number] [address] [place] [address] Jul, Generalized anxiety disorder F41.1 and Bereavement Z63.4 [facility] [address] [facility] [id number] [address] [place] [address] Jul, Acute non-recurrent frontal sinusitis J01.10 [facility] [address] [id number] [address] [place] [address] Jul, [facility] [address] [id number] [address] [place] [address] Jul, Sore throat J02.9 and Uvulit is K12.2 [facility] [address] [id number] [address] [place] [address] Jul, Generalized anxiety disorder F41.1 [facility] [address] [id number] [place] [address] 13 Jul, 2019 Caries K02.9 [facility] [address] [facility] [id number] [address] [place] [address] Jun, Generalized anxiety disorder F41.1 [facility] [address] [facility] [id number] [address] [place] [address] Jun, Generalized anxiety disorder F41.1 and Bereavement Z63.4 [facility] [address] [id number] [address] [place] [address] May, Generalized anxiety disorder F41.1 [facility] [address] [facility] [id number] [address] [place] [address] May, Dysuria R30.0 [facility] [address] [facility] [id number] [address] [place] [address] May, Generalized anxiety disorder F41.1 and Bereavement Z63.4 [facility] [address] [facility] [id number] [address] [place] [address] May, [facility] [address] [id number] [address] [place] [address] Apr, Generalized anxiety disorder F41.1 and Bereavement Z63.4 [facility] [address] [id number] [address] [place] [address] 24 Apr, 2019 Generalized anxiety disorder F41.1 [facility] [address] [id number] [place] [address] Mar, Caries K02.9 ; Dental examin ation Z01.20 ; Periodontitis K05.30 and Oral health maintenance status requiring routine preventive dental care K08.9 [facility] [address] [facility] [id number] [address] [place] [address] Mar, Generalized anxiety disorder F41.1 [facility] [address] [facility] [id number] [address] [place] [address] Mar, Gastrointestinal hemorrhage associated with gastroduodenitis K29.91 [facility] [address] [facility] [id number] [address] [place] [address] Mar, Generalized anxiety disorder F41.1 and Bereavement Z63.4 [facility] [address] [facility] [id number] [address] [place] [address] Mar, [facility] [address] [facility] [id number] [address] [place] [address] Mar, [facility] [address] [facility] [id number] [address] [place] [address] Mar, [facility] [address] [facility] [id number] [address] [place] [address] Mar, Tachycardia R00.0 and Essent ial hypertension I10 [facility] [address] [facility] [id number] [address] [place] [address] Feb, Generalized anxiety disorder F41.1 [facility] [address] [facility] [id number] [address] [place] [address] Feb, Generalized anxiety disorder F41.1 and Bereavement Z63.4 [facility] [address] [facility] [id number] [address] [place] [address] Feb, Generalized anxiety disorder F41.1 [facility] [address] [facility] [id number] [address] [place] [address] Feb, Generalized anxiety disorder F41.1 and Bereavement Z63.4 [facility] [address] [id number] [address] [place] [address] Jan, [facility] [address] [facility] [id number] [address] [place] [address] Jan, Breast cancer screening by trenton crenshaw Z12.31 [facility] [address] [facility] [id number] [address] [place] [address] 13 Jan, 2019 Generalized anxiety disorder F41.1 and Bereavement Z63.4 [facility] [address] [facility] [id number] [address] [place] [address] Jan, [place] [address] [facility] [id number] [address] [place] [address] December, Generalized anxiety disorder F41.1 and Bereavement Z63.4 [place] [address] [facility] [id number] [address] [place] [address] December, Diverticulitis K57.92 ; Dysu nick R30.0 ; Other constipation K59.09 and Lower abdominal pain R10.30 [facility] [address] [facility] [id number] [address] [place] [address] Nov, Diverticulitis K57.92 [facility] [address] [facility] [id number] [address] [place] [address] Nov, Generalized anxiety disorder F41.1 and Bereavement Z63.4 [facility] [address] [facility] [id number] [address] [place] [address] Nov, Generalized anxiety disorder F41.1 and Bereavement Z63.4 [facility] [address] [facility] [id number] [address] [place] [address] Nov, Diverticulitis K57.92 [facility] [address] [facility] [id number] [address] [place] [address] Oct, Diverticulitis K57.92 [facility] [address] [facility] [id number] [address] [place] [address] Oct, Diverticulitis K57.92 [facility] [address] [facility] [id number] [address] [place] [address] Oct, Generalized anxiety disorder F41.1 [facility] [address] [facility] [id number] [address] [place] [address] Oct, Right lower quadrant abdomin al pain R10.31 and Diverticulitis K57.92 [facility] [address] [facility] [id number] [address] [place] [address] Sep, Generalized anxiety disorder F41.1 and Bereavement Z63.4 [facility] [address] [facility] [id number] [address] [place] [address] Aug, [facility] [address] [facility] [id number] [address] [place] [address] Aug, Generalized anxiety disorder F41.1 and Bereavement Z63.4 [facility] [address] [place] [address] [place] [address] Aug, Caries K02.9 [facility] [id number] [place] [address] Jul, Generalized anxiety disorder F41.1 and Bereavement Z63.4 [facility] [address] [place] [id number] [address] [place] [address] Jul, Other acute gastritis withou t hemorrhage K29.00 ; Generalized anxiety disorder F41.1 ; Tachycardia R00.0 and Essential hypertension I10 [facility] [address] [facility] [id number] [address] [place] [address] Jul, Generalized anxiety disorder F41.1 and Bereavement Z63.4 [facility] [address] [facility] [id number] [address] [place] [address] Jun, Generalized anxiety disorder F41.1 and Bereavement Z63.4 [facility] [address] [place] [id number] [address] [place] [address] Jun, Generalized anxiety disorder F41.1 and Bereavement Z63.4 [facility] [address] [id number] [address] [address] Jun, Dental examination Z01.20 [facility] [address] [facility] [id number] [address] [place] [address] May, Generalized anxiety disorder F41.1 and Bereavement Z63.4 [facility] [address] [facility] [id number] [address] [place] [address] May, Encounter for immunization Z 23 [facility] [address] [facility] [id number] [address] [place] [address] May, Generalized anxiety disorder F41.1 and Bereavement Z63.4 [facility] [address] [facility] [id number] [address] [place] [address] May, [facility] [address] [facility] [id number] [address] [place] [address] 24 Apr, 2018 Generalized anxiety disorder F41.1 and Bereavement Z63.4 [facility] [address] [facility] [id number] [address] [place] [address] 17 Apr, 2018 [facility] [address] [facility] [id number] [address] [place] [address] 13 Apr, 2018 Diverticulitis K57.92 [facility] [address] [facility] [id number] [address] [place] [address] Apr, Generalized anxiety disorder F41.1 and Bereavement Z63.4 [facility] [address] [facility] [id number] [address] [place] [address] Mar, [facility] [address] [facility] [id number] [address] [place] [address] Mar, Diverticulitis K57.92 [facility] [address] [facility] [id number] [address] [place] [address] Mar, Generalized anxiety disorder F41.1 and Bereavement Z63.4 [facility] [address] [id number] [address] [place] [address] Mar, Hypertension I10 [facility] [address] [id number] [address] [place] [address] Mar, Generalized anxiety disorder F41.1 and Bereavement Z63.4 [facility] [address] [id number] [address] [place] [address] Feb, Generalized anxiety disorder F41.1 and Bereavement Z63.4 [facility] [address] [id number] [address] [place] [address] Feb, [facility] [address] [id number] [address] [place] [address] Feb, Generalized anxiety disorder F41.1 and Bereavement Z63.4 [facility] [address] [id number] [address] [place] [address] Feb, Generalized anxiety disorder F41.1 and Bereavement Z63.4 [facility] [address] [id number] [address] [place] [address] Jan, Hypertension I10 and Acute n on-recurrent maxillary sinusitis J01.00 [facility] [address] [id number] [address] [place] [address] December, [facility] [address] [id number] [address] [place] [address] December, Hypertension I10 [facility] [address] [id number] [address] [place] [address] December, Generalized anxiety disorder F41.1 [facility] [address] [id number] [place] [address] Oct, Encounter for dental examina tion Z01.20 [facility] [address] [id number] [place] [address] Oct, Encounter for dental examina tion Z01.20 [facility] [address] [id number] [place] [address] Oct, Dental examination Z01.20 [facility] [address] [id number] [address] [place] [address] Oct, Generalized anxiety disorder F41.1 [facility] [address] [id number] [address] [place] [address] Aug, Dental examination Z01.20 [facility] [address] [id number] [address] [place] [address] Aug, Generalized anxiety disorder F41.1 [facility] [address] [id number] [address] [place] [address] Aug, [facility] [address] [id number] [address] [place] [address] Aug, Encounter for dental examina tion Z01.20 [facility] [address] [id number] [address] [place] [address] Aug, Subacute maxillary sinusitis J01.00 [facility] [address] [id number] [address] [place] [address] Jul, Dental examination Z01.20 [facility] [address] [id number] [address] [place] [address] Jul, Generalized anxiety disorder F41.1 [facility] [address] [id number] [address] [place] [address] Jul, Diverticulitis K57.92 [facility] [address] [id number] [address] [place] [address] Jun, Encounter for immunization Z 23 [facility] [address] [id number] [place] [address] Jun, Dental examination Z01.20 [facility] [address] [id number] [address] [place] [address] Jun, Generalized anxiety disorder F41.1 [facility] [address] [id number] [address] [place] [address] Jun, Dental examination Z01.20 [facility] [address] [id number] [address] [place] [address] May, [facility] [address] [id number] [address] [place] [id number] May, Dental examination Z01.20 [facility] [address] [id number] [address] [place] [address] [id number] May, Dental examination Z01.20 [facility] [address] [id number] [address] [place] [address] May, Dental examination Z01.20 [facility] [address] [id number] [address] [place] [address] May, [facility] [address] [id number] [address] [place] [address] May, Generalized anxiety disorder F41.1 [facility] [address] [id number] [address] [place] [address] May, Localized edema R60.0 ; Yeas t vaginitis B37.3 and Gastroesophageal reflux disease with esophagitis K21.0 [facility] [address] [id number] [address] [place] [address] [id number] Apr, Dental examination Z01.20 [facility] [address] [id number] [address] [place] [address] Apr, Dental examination Z01.20 [facility] [address] [id number] [address] [place] [address] Apr, Dental examination Z01.20 [facility] [address] [id number] [address] [place] [address] Mar, Dyspepsia R10.13 [facility] [address] [id number] [address] [place] [address] Mar, Generalized anxiety disorder F41.1 [facility] [address] [id number] [address] [address] Mar, Encounter for dental examina tion Z01.20 [facility] [address] [id number] [address] [place] [address] [id number] Mar, [facility] [address] [id number] [address] [place] [id number] Mar, Dental examination Z01.20 [facility] [address] [id number] [address] [place] [address] Feb, Hypertension I10 and Tachyca rdia R00.0 [facility] [address] [id number] [place] [address] Feb, [facility] [address] [id number] [address] [place] [address] Feb, Generalized anxiety disorder F41.1 [facility] [address] [id number] [address] [place] [id number] Feb, Dental examination Z01.20 [facility] [address] [id number] [address] [place] [address] Jan, Generalized anxiety disorder F41.1 [facility] [address] [id number] [address] [place] [address] December, Generalized anxiety disorder F41.1 [facility] [address] [id number] [address] [place] [id number] December, Encounter for dental examina tion Z01.20 [facility] [address] [id number] [address] [place] [address] Nov, [facility] [address] [id number] [address] [place] [address] Nov, [facility] [address] [facility] [id number] [address] [place] [address] Nov, Generalized anxiety disorder F41.1 [facility] [address] [place] [id number] [address] [place] [address] 30 Oct, 2016 [facility] [address] [id number] [address] [place] [address] [id number] Oct, Dental examination Z01.20 [facility] [address] [place] [address] [id number] [address] [place] [address] Oct, Vaginal dryness N89.8 [place] [address] [place] [id number] [address] [place] [address] Oct, Pseudoseizures F44.5 [place] [address] [place] [id number] [address] [place] [address] Oct, Generalized anxiety disorder F41.1 [place] [address] [place] [id number] [address] [place] [phone] 28 Sep, 2016 Abnormal uterine bleeding (A UB) N93.9 ; Vaginal dryness N89.8 and Screening breast examination Z12.39 [place] [address] [id number] Sep, Dental examination Z01.20 [place] [address] [address] [place] [id number] [address] [place] [phone] Sep, Generalized anxiety disorder F41.1 [place] [address] [address] [place] [id number] [address] [place] [id number] 06 Sep, 2016 Unspecified ovarian cyst, ri ght side N83.201 ; Unspecified ovarian cyst, left side N83.202 ; Yeast infection of the vagina B37.3 ; Mitral valve prolapse I34.1 and Hypertension I10 [place] [address] [address] [place] [id number] [address] [place] [id number] Aug, Generalized anxiety disorder F41.1 [place] [address] [address] [place] [id number] [address] [place] [id number] Jul, [facility] [address] [facility] [id number] [address] [place] [id number] Jul, Generalized anxiety disorder F41.1 [facility] [address] [facility] [id number] [address] [place] [id number] Jun, Generalized anxiety disorder F41.1 [facility] [address] [facility] [id number] [address] [place] [phone] 28 May, 2016 Encounter for immunization Z 23 [facility] [address] [facility] [id number] [address] [place] [id number] 17 May, 2016 Generalized anxiety disorder F41.1 and Depressive disorder, not elsewhere classified F32.9 [facility] [address] [facility] [id number] [address] [place] [phone] 28 Apr, 2016 Hypertension I10 [facility] [address] [facility] [id number] [address] [place] [id number] 22 Apr, 2016 Cervicalgia M54.2 [facility] [address] [facility] [id number] [address] [place] [phone] 12 Apr, 2016 Cervicalgia M54.2 [facility] [address] [facility] [id number] [address] [place] [phone] 09 Mar, 2016 Generalized anxiety disorder F41.1 and Depressive disorder, not elsewhere classified F32.9 [facility] [address] [address] [id number] [address] [place] [address] [id number] 14 Feb, 2016 Visit for dental examination Z01.20 [facility] [address] [facility] [id number] [address] [place] [address] 11 Feb, 2016 Pseudoseizures F44.5 ; Migra ine without status migrainosus, not intractable, unspecified migraine type G43.909 and Essential hypertension I10 [facility] [address] [id number] [address] [place] [address] [id number] 06 Feb, 2016 Dental examination Z01.20 [facility] [address] [facility] [id number] [address] [place] [address] Feb, Generalized anxiety disorder F41.1 and Depressive disorder, not elsewhere classified F32.9 [facility] [address] [facility] [id number] [address] [place] [address] Jan, Tachycardia R00.0 [facility] [address] [facility] [id number] [address] [place] [address] December, Eustachian tube dysfunction, bilateral H69.83 [place] [address] [facility] [id number] [address] [place] [address] December, Generalized anxiety disorder F41.1 and Depressive disorder, not elsewhere classified F32.9 [place] [address] [facility] [id number] [address] [place] [address] Nov, [place] [address] [facility] [id number] [address] [place] [address] Nov, [place] [address] [facility] [id number] [address] [place] [address] Nov, Hypertension I10 ; Onychomyc osis B35.1 [...] and Complex cyst of left ovary N83.29 [facility] [address] [facility] [id number] [address] [place] [address] 14 Nov, 2015 Sinusitis J32.9 [facility] [address] [facility] [id number] [address] [place] [address] Oct, Complex cyst of left ovary N 83.29 [facility] [address] [facility] [id number] [address] [place] [address] Oct, Onychomycosis B35.1 [place] [address] [id number] [address] [place] [address] [id number] 17 Oct, 2015 Dental examination Z01.20 [place] [address] [address] [place] [id number] [place] [address] 09 Oct, 2015 Well woman exam Z01.419 [...] R92.2 and History of colon polyps Z86.010 [place] [address] [address] [place] [id number] [address] [place] [address] Oct, Generalized anxiety disorder F41.1 and Depressive disorder, not elsewhere classified F32.9 [place] [address] [address] Sep, Hypertension I10 and Onychom ycosis B35.1 [place] [address] [address] [place] [id number] [address] [place] [address] 16 Sep, 2015 Skin tags, multiple acquired L91.8 [place] [address] [address] [place] [id number] [address] [place] [address] Aug, [place] [address] [address] [place] [id number] [address] [place] [address] Aug, [place] [address] [facility] [id number] [address] [place] [address] Aug, [place] [address] [address] [place] [id number] [address] [place] [address] Aug, Generalized anxiety disorder F41.1 and Depressive disorder, not elsewhere classified F32.9 [place] [address] [address] [place] [id number] [address] [place] [address] Jul, Skin lesion L98.9 [facility] [address] [id number] [address] [place] [address] Jun, Generalized anxiety disorder F41.1 and Depressive disorder, not elsewhere classified F32.9 [facility] [address] [id number] [address] [place] [address] Jun, [facility] [address] [id number] [address] [place] [address] Jun, Generalized anxiety disorder F41.1 [facility] [address] [id number] [address] [place] [address] May, Encounter for immunization Z 23 and Right shoulder pain M25.511 [facility] [address] [id number] [address] [place] [address] Apr, [facility] [address] [id number] [address] [place] [address] 14 Apr, 2015 Generalized anxiety disorder 300.02 and Depressive disorder, not elsewhere classified 311 [facility] [address] [id number] [address] [place] [address] [id number] Mar, Dental examination V72.2 [facility] [address] [id number] [address] [place] [address] Mar, Generalized anxiety disorder 300.02 and Depressive disorder, not elsewhere classified 311 [facility] [address] [id number] [address] [place] [address] Mar, Depression, major, recurrent , 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.35 and 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 [id number] [address] [place] [address] Jan, [facility] [address] [facility] [id number] [address] [place] [address] December, Generalized anxiety disorder 300.02 and Depressive disorder, not elsewhere classified 311 [facility] [address] [facility] [id number] [address] [place] [address] December, Major depressive disorder, r ecurrent, unspecified 296.30 and Panic disorder with agoraphobia 300.21 [facility] [address] [id number] [address] [place] [address] Nov, [facility] [address] [facility] [id number] [address] [place] [address] Nov, [facility] [address] [facility] [id number] [address] [place] [address] Oct, [facility] [address] [facility] [id number] [address] [place] [address] Oct, [facility] [address] [facility] [id number] [address] [place] [address] Oct, [facility] [address] [facility] [id number] [address] [place] [address] Oct, [facility] [address] [facility] [id number] [address] [place] [address] Sep, [facility] [address] [facility] [id number] [address] [place] [address] Sep, [facility] [address] [facility] [id number] [address] [place] [address] Sep, [facility] [address] [facility] [id number] [address] [place] [address] Sep, [facility] [address] [facility] [id number] [address] [place] [address] Sep, 2014 [facility] [address] [id number] [address] [place] [address], [place] [address] Sep, 2014 [facility] [address] [id number] [address] [place] [address], [place] [address] Sep, 2014 [facility] [address] [id number] [address] [place] [address], [place] [address] Sep, 2014 [facility] [address] [id number] [address] [place] [address], [place] [address] Sep, 2014 [facility] [address] [id number] [address] [place] [address], [place] [address] Sep, 2014 [facility] [address] [id number] [address] [place] [address], [place] [address] Aug, [facility] [address] [id number] [address] [place] [address], [place] [address] Aug, [facility] [address] [id number] [address] [place] [address], [place] [address] Jul, [facility] [address] [id number] [address] [place] [address], [place] [address] Jul, [facility] [address] [id number] [address] [place] [address], [place] [address] 18 Jul, 2014 [facility] [address] [id number] [address] [place] [address], [place] [address] 18 Jul, 2014 [facility] [address] [id number] [address] [place] [address], [place] [address] Jul, [facility] [address] [id number] [address] [place] [address], [place] [address] Jul, [facility] [address] [id number] [address] [place] [address], [place] [address] 05 Jul, 2014 [facility] [address] [id number] [address] [place] [address], [place] [address] Jul, [facility] [address] [id number] [address] [place] [address], [place] [address] Jul, [facility] [address] [id number] [address] [place] [address], [place] [address] Jul, [facility] [address] [id number] [address] [place] [address], [place] [address] Jul, [facility] [address] [id number] [address] [place] [address], [place] [address] Jul, [facility] [address] [id number] [address] [place] [address], [place] [address] Jun, [facility] [address] [id number] [address] [place] [address], [place] [address] Jun, [facility] [address] [id number] [address] [place] [address], [place] [address] May, [facility] [address] [id number] [address] [place] [address], [place] [address] May, [facility] [address] [id number] [address] [place] [address], [place] [address] May, [facility] [address] [id number] [address] [place] [address], [place] [address] May, [facility] [address] [id number] [address] [place] [address] May, [facility] [address] [id number] [address] [place] [address] May, [facility] [address] [id number] [address] [place] [address], [place] [address] May, [facility] [address] [id number] [address] [place] [address], [place] [address] May, [facility] [address] [id number] [address] [place] [address] May, [facility] [address] [id number] [address] [place] [address] May, [facility] [address] [id number] [address] [place] [address], [place] [address] May, [facility] [address] [id number] [address] [place] [address], [place] [address] May, [facility] [address] [id number] [address] [place] [address], [place] [address] Apr, [facility] [address] [id number] [address] [place] [address], [place] [address] Apr, [facility] [address] [id number] [address] [place] [address], [place] [address] Apr, [facility] [address] [id number] [address] [place] [address], [place] [address] Apr, [facility] [address] [id number] [address] [place] [address], [place] [address] Apr, [facility] [address] [id number] [address] [place] [address], [place] [address] Apr, [facility] [address] [id number] [address] [place] [address], [place] [address] Feb, [facility] [address] [id number] [address] [place] [address], [place] [address] Feb, [facility] [address] [id number] [address] [place] [address], [place] [address] Feb, [facility] [address] [id number] [address] [place] [address], [place] [address] Feb, [facility] [address] [id number] [address] [place] [address], [place] [address] Feb, [facility] [address] [id number] [address] [place] [address], [place] [address] Feb, [facility] [address] [id number] [address] [place] [address], [place] [address] Jan, [facility] [address] [id number] [facility] [place] [address] Jan, [facility] [address] [id number] [facility] [place] [address] Jan, [facility] [address] [id number] [facility] [place] [address] Jan, [facility] [address] [id number] [address] [place] [address], [place] [address] Jan, [facility] [address] [id number] [facility] [place] [address] Jan, [facility] [address] [id number] [address] [place] [address], [place] [address] Jan, [facility] [address] [id number] [address] [place] [address], [place] [address] Jan, [facility] [address] [id number] [address] [place] [address], [place] [address] December, [facility] [address] [id number] [address] [place] [address], [place] [address] December, [facility] [address] [id number] [address] [place] [address], [place] [address] December, [facility] [address] [id number] [address] [place] [address], [place] [address] December, [facility] [address] [id number] [address] [place] [address], [place] [address] Nov, [facility] [address] [id number] [address] [place] [address], [place] [address] Nov, [facility] [address] [id number] [address] [place] [address], [place] [address] Nov, [facility] [address] [id number] [address] [place] [address], [place] [address] Nov, [facility] [address] [id number] [address] [place] [address], [place] [address] Nov, [facility] [address] [id number] [address] [place] [address], [place] [address] Nov, [facility] [address] [id number] [address] [place] [address], [place] [address] Nov, [facility] [address] [id number] [address] [place] [address], [place] [address] Nov, [facility] [address] [id number] [address] [place] [address], [place] [address] Oct, [facility] [address] [id number] [address] [place] [address], [place] [address] Oct, [facility] [address] [id number] [address] [place] [address], [place] [address] Sep, [facility] [address] [id number] [address] [place] [address], [place] [address] Sep, [facility] [address] [id number] [address] [place] [address], [place] [id number] Sep, [facility] [address] [id number] [address] [place] [address], [place] [address] Sep, [facility] [address] [id number] [address] [place] [address], [place] [address] Sep, [facility] [address] [id number] [address] [place] [address], [place] [address] Sep, [facility] [address] [id number] [address] [place] [address], [place] [address] Aug, [facility] [address] [id number] [address] [place] [address], [place] [address] Aug, [facility] [address] [id number] [address] [place] [address], [place] [address] Aug, [facility] [address] [id number] [address] [place] [address], [place] [address] Aug, [facility] [address] [id number] [address] [place] [address], [place] [address] Jul, [facility] [address] [id number] [address] [place] [address], [place] [address] Jul, [facility] [address] [id number] [address] [place] [address], [place] [address] Jul, [facility] [address] [id number] [address] [place] [address], [place] [address] Jul, [facility] [address] [id number] [address] [place] [address], [place] [address] Jun, [facility] [address] [id number] [address] [place] [address], [place] [address] Jun, [facility] [address] [id number] [address] [place] [address], [place] [address] May, [facility] [address] [id number] [address] [place] [address], [place] [address] 24 May, 2013 [facility] [address] [id number] [address] [place] [address], [place] [address] May, [facility] [address] [id number] [address] [place] [address], [place] [address] May, [facility] [address] [id number] [address] [place] [address], [place] [address] May, [facility] [address] [id number] [address] [place] [address], [place] [address] 17 Apr, 2013 [facility] [address] [id number] [address] [place] [address], [place] [address] 10 Apr, 2013 [facility] [address] [id number] [address] [place] [address], [place] [address] 29 Mar, 2013 [facility] [address] [id number] [address] [place] [address], [place] [address] Mar, [facility] [address] [id number] [address] [place] [address], [place] [address] 15 Mar, 2013 [facility] [address] [id number] [address] [place] [address], [place] [address] Mar, [facility] [address] [id number] [address] [place] [address], [place] [address] Feb, [facility] [address] [id number] [address] [place] [address], [place] [address] Feb, [facility] [address] [id number] [address] [place] [address], [place] [address] Feb, [facility] [address] [id number] [address] [place] [address], [place] [address] Feb, [facility] [address] [id number] [address] [place] [address], [place] [address] Feb, [facility] [address] [id number] [address] [place] [address], [place] [address] Jan, [facility] [address] [id number] [address] [place] [address], [place] [address] Jan, [facility] [address] [id number] [address] [place] [address], [place] [address] Jan, [facility] [address] [id number] [address] [place] [address], [place] [address] Jan, [facility] [address] [id number] [address] [place] [address], [place] [address] Jan, [facility] [address] [id number] [address] [place] [address], [place] [address] December, [facility] [address] [id number] [address] [place] [address], [place] [address] December, [facility] [address] [id number] [address] [place] [address], [place] [address] Nov, [facility] [address] [id number] [address] [place] [address], [place] [address] Nov, [facility] [address] [id number] [address] [place] [address], [place] [address] 19 Oct, 2012 [facility] [address] [id number] [address] [place] [address], [place] [address] 13 Oct, 2012 [facility] [address] [id number] [address] [place] [address], [place] [address] 05 Oct, 2012 [facility] [address] [id number] [address] [place] [address], [place] [address] 14 Sep, 2012 [facility] [address] [id number] [address] [place] [address], [place] [address] 24 Aug, 2012 [facility] [address] [id number] [address] [place] [address], [place] [address] 16 Aug, 2012 [facility] [address] [id number] [address] [place] [address], [place] [address] Aug, [facility] [address] [id number] [address] [place] [address], [place] [address] Aug, [facility] [address] [id number] [address] [place] [address], [place] [address] Jul, [facility] [address] [id number] [address] [place] [address], [place] [address] Jul, [facility] [address] [id number] [address] [place] [address], [place] [address] Jul, [facility] [address] [id number] [address] [place] [address], [place] [address] Jul, [facility] [address] [id number] [address] [place] [address], [place] [address] Jul, [facility] [address] [id number] [address] [place] [address], [place] [address] Jul, [facility] [address] [id number] [address] [place] [address], [place] [address] Jul, [facility] [address] [id number] [address] [place] [address], [place] [address] Jul, [facility] [address] [id number] [address] [place] [address], [place] [address] Jun, [facility] [address] [id number] [address] [place] [address], [place] [address] Jun, [facility] [address] [id number] [address] [place] [address], [place] [address] Jun, [facility] [address] [id number] [address] [place] [address], [place] [address] Jun, [facility] [address] [id number] [address] [place] [address], [place] [address] Jun, [facility] [address] [id number] [address] [place] [address], [place] [address] Jun, [facility] [address] [id number] [address] [place] [address], [place] [address] May, [facility] [address] [id number] [address] [place] [address], [place] [address] May, [facility] [address] [id number] [address] [place] [address], [place] [address] May, [facility] [address] [id number] [address] [place] [address], [place] [address] May, [facility] [address] [id number] [address] [place] [address], [place] [address] Apr, [facility] [address] [id number] [address] [place] [address], [place] [address] 06 Apr, 2012 [facility] [address] [id number] [address] [place] [address], [place] [address] Mar, [facility] [address] [id number] [address] [place] [address], [place] [address] Jan, [facility] [address] [id number] [address] [place] [address], [place] [address] Jan, [facility] [address] [id number] [address] [place], [place] [address] [address] 16 Jan, 2012 [facility] [address] [id number] [address] [place] [address], [place] [address] 15 Jan, 2012 [facility] [address] [id number] [address] [place] [address], [place] [address] 14 Jan, 2012 [facility] [address] [id number] [address] [place] [address], [place] [address] 14 Jan, 2012 [facility] [address] [id number] [address] [place] [address], [place] [address] 07 Jan, 2012 [facility] [address] [id number] [address] [place] [address], [place] [address] December, [facility] [address] [id number] [address] [place] [address], [place] [address] December, [facility] [address] [id number] [address] [place] [address], [place] [address] December, [facility] [address] [id number] [address] [place] [address], [place] [address] December, [facility] [address] [id number] [address] [place] [address], [place] [address] Nov, [facility] [address] [id number] [address] [place] [address], [place] [address] Nov, [facility] [address] [id number] [address] [place] [address], [place] [address] Oct, [facility] [address] [id number] [address] [place] [address], [place] [address] 28 Oct, 2011 [facility] [address] [id number] [address] [place] [address], [place] [address] 15 Oct, 2011 [facility] [address] [id number] [address] [place] [address], [place] [address] Sep, [facility] [address] [id number] [address] [place] [address], [place] [address] Sep, [facility] [address] [id number] [address] [place] [address], [place] [address] 02 Sep, 2011 [facility] [address] [id number] [address] [place] [address], [place] [address] Aug, [facility] [address] [id number] [address] [place] [address], [place] [address] Aug, [facility] [address] [id number] [address] [place] [address], [place] [address] Aug, [facility] [address] [id number] [address] [place] [address], [place] [address] Aug, [facility] [address] [id number] [address] [place] [address], [place] [address] Aug, [facility] [address] [id number] [address] [place] [address], [place] [address] Aug, [facility] [address] [id number] [address] [place] [address], [place] [address] Aug, [facility] [address] [id number] [address] [place] [address], [place] [address] Jul, [facility] [address] [id number] [address] [place] [address], [place] [address] Jul, [facility] [address] [id number] [address] [place] [address], [place] [address] Jun, [facility] [address] [id number] [address] [place] [address], [place] [address] 28 Jun, 2011 [facility] [address] [id number] [address] [place] [address], [place] [address] 17 Jun, 2011 [facility] [address] [id number] [address] [place] [address], [place] [address] 15 Jun, 2011 [facility] [address] [id number] [address] [place] [address], [place] [address] 14 Jun, 2011 [facility] [address] [id number] [address] [place] [address], [place] [address] 14 Jun, 2011 [facility] [address] [id number] [address] [place] [address], [place] [address] 07 Jun, 2011 [facility] [address] [id number] [address] [place] [address], [place] [address] Jun, [facility] [address] [id number] [address] [place] [address], [place] [address] Jun, [facility] [address] [id number] [address] [place] [address], [place] [address] Jun, [facility] [address] [id number] [address] [place] [address], [place] [address] May, [facility] [address] [id number] [address] [place] [address], [place] [address] May, [facility] [address] [id number] [address] [place] [address], [place] [address] May, [facility] [address] [id number] [address] [place] [address] May, [facility] [address] [id number] [address] [place] [address], [place] [address] May, [facility] [address] [id number] [address] [place] [address] May, [facility] [address] [id number] [address] [place] [address] Feb, [facility] [address] [id number] [address] [place] [address] December, [facility] [address] [id number] [address] [place] [address], [place] [address] Jul, [facility] [address] [id number] [address] [place] [address] Jul, [facility] [address] [id number] [address] [place] [address] Jul, [facility] [address] [id number] [address] [place] [address] Jul, [facility] [address] [id number] [address] [place] [address] Jun, [facility] [address] [id number] [address] [place] [address] 31 Jul, 2009 [facility] [address] [id number] [address] [place] [address] Jul, [facility] [address] [id number] [address] [place] [address] Jul, [facility] [address] [id number] [address] [place] [address] Jul, [facility] [address] [id number] [address] [place] [address] Jul, [facility] [address] [id number] [address] [place] [address] Jul, [facility] [address] [id number] [address] [place] [address] Jan, [facility] [address] [id number] [address] [place] [address] 16 Sep, 2008 [facility] [address] [id number] [address] [place] [address] Sep, IMMUNIZATIONS No Known Immunizations SOCIAL HISTORY [...] bon e 03/2017 Surgical History urinary dilitation 1992 Hospitalization History surgery
--- OUTSIDE RECORDS SUMMARY | 2020-01-27 10:04 | XMS REPORT ---
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 Name Role Phone Antonia RENY Unavailable PROBLEMS Type Condition ICD9-CM Code [id number] Code Onset Dates Condition S tatus SNOMED Code Problem Hypertension I10 Active 5435995 3 Problem Generalized anxiety disorder F41.1 A ctive 148672579 Problem History of colon polyps Z86.010 Active 258320626 Problem History of diverticulitis Z87.19 Acti ve 566900008052259 Problem Family history of diabetes mellitus Z83.3 Active 391518911 Problem Excessive and frequent menstruation with irregular cycle N92.1 Active 209954883 Problem Hot flashes N95.1 Active 63719283 8 Problem Gastroesophageal reflux disease with esophagitis K 21.0 Active 173024289 Problem History of ovarian cyst Z87.42 Active 06392096 Problem Diverticulitis K57.92 Active 43429 6006 Problem Dense breast tissue R92.2 Active 206873048 Problem Perimenopausal N95.1 Active 79453 2072332773 Problem Mitral valve prolapse I34.1 Active 240286890 Problem Abnormal uterine bleeding (AUB) N93.9 Active 32799370797437 Problem Tachycardia R00.0 Active 3049436 ALLERGIES No Information ENCOUNTERS Encounter Location Date Diagnosis [facility] [address] [facility] [id number] [address] [place] [phone] 30 Nov, 2019 [facility] [address] [facility] [id number] [address] [place] [phone] 16 Nov, 2019 [facility] [address] [facility] [id number] [address] [place] [address] Oct, Generalized anxiety disorder F41.1 and Bereavement Z63.4 [facility] [address] [id number] [address] [place] [phone] 16 Oct, 2019 Acute non-recurrent sinusiti s, unspecified location J01.90 [facility] [address] [id number] [address] [place] [address] 05 Oct, 2019 Acute non-recurrent frontal sinusitis J01.10 [facility] [address] [id number] [address] [place] [address] 27 Sep, 2019 Generalized anxiety disorder F41.1 and Bereavement Z63.4 [facility] [address] [id number] [address] [place] [phone] 17 Sep, 2019 [facility] [address] [id number] [address] [place] [phone] 11 Sep, 2019 Generalized anxiety disorder F41.1 and Bereavement Z63.4 [place] [address] [id number] [address] [place] [address] 15 Aug, 2019 Generalized anxiety disorder F41.1 and Bereavement Z63.4 [facility] [address] [id number] [address] [place] [phone] Aug, Generalized anxiety disorder F41.1 [facility] [address] [facility] [id number] [address] [place] [phone] 06 Aug, 2019 Viral upper respiratory trac t infection J06.9 [facility] [address] [id number] [address] [place] [phone] Jul, Generalized anxiety disorder F41.1 and Bereavement Z63.4 [facility] [address] [id number] [address] [place] [address] Jul, Acute non-recurrent frontal sinusitis J01.10 [facility] [address] [id number] [address] [place] [phone] Jul, [facility] [address] [facility] [id number] [address] [place] [phone] Jul, Sore throat J02.9 and Uvulit is K12.2 [facility] [address] [id number] [address] [place] [address] 16 Jul, 2019 Generalized anxiety disorder F41.1 [facility] [address] [id number] [place] [address] Jul, Caries K02.9 [facility] [address] [id number] [address] [place] [address] Jun, Generalized anxiety disorder F41.1 [facility] [address] [id number] [address] [place] [phone] Jun, Generalized anxiety disorder F41.1 and Bereavement Z63.4 [facility] [address] [facility] [id number] [address] [place] [phone] May, Generalized anxiety disorder F41.1 [facility] [address] [facility] [id number] [address] [place] [phone] May, Dysuria R30.0 [facility] [address] [facility] [id number] [address] [place] [address] May, Generalized anxiety disorder F41.1 and Bereavement Z63.4 [facility] [address] [facility] [id number] [address] [place] [phone] May, [facility] [address] [facility] [id number] [address] [place] [address] Apr, Generalized anxiety disorder F41.1 and Bereavement Z63.4 [facility] [address] [facility] [id number] [address] [place] [phone] 24 Apr, 2019 Generalized anxiety disorder F41.1 [facility] [address] [id number] [address] [place] [address] Mar, Caries K02.9 ; Dental examin ation Z01.20 ; Periodontitis K05.30 and Oral health maintenance status requiring routine preventive dental care K08.9 [facility] [address] [facility] [id number] [address] [place] [phone] Mar, Generalized anxiety disorder F41.1 [facility] [address] [id number] [address] [place] [address] Mar, Gastrointestinal hemorrhage associated with gastroduodenitis K29.91 [facility] [address] [id number] [address] [place] [phone] Mar, Generalized anxiety disorder F41.1 and Bereavement Z63.4 [facility] [address] [id number] [address] [place] [phone] Mar, [facility] [address] [id number] [address] [place] [phone] Mar, [facility] [address] [facility] [id number] [address] [place] [phone] Mar, [facility] [address] [facility] [id number] [address] [place] [address] Mar, Tachycardia R00.0 and Essent ial hypertension I10 [facility] [address] [facility] [id number] [address] [place] [phone] Feb, Generalized anxiety disorder F41.1 [facility] [address] [facility] [id number] [address] [place] [phone] Feb, Generalized anxiety disorder F41.1 and Bereavement Z63.4 [facility] [address] [facility] [id number] [address] [place] [phone] Feb, Generalized anxiety disorder F41.1 [facility] [address] [facility] [id number] [address] [place] [address] Feb, Generalized anxiety disorder F41.1 and Bereavement Z63.4 [facility] [address] [facility] [id number] [address] [place] [address] Jan, [facility] [address] [facility] [id number] [address] [place] [address] Jan, Breast cancer screening by m ammogram Z12.31 [facility] [address] [id number] [address] [place] [address] 13 Jan, 2019 Generalized anxiety disorder F41.1 and Bereavement Z63.4 [facility] [address] [id number] [address] [place] [address] Jan, [facility] [address] [id number] [address] [place] [address] December, Generalized anxiety disorder F41.1 and Bereavement Z63.4 [facility] [address] [id number] [address] [place] [address] December, Diverticulitis K57.92 ; Dysu nick R30.0 ; Other constipation K59.09 and Lower abdominal pain R10.30 [facility] [address] [facility] [id number] [address] [place] [address] Nov, Diverticulitis K57.92 [facility] [address] [id number] [address] [place] [address] Nov, Generalized anxiety disorder F41.1 and Bereavement Z63.4 [facility] [address] [facility] [id number] [address] [place] [phone] Nov, Generalized anxiety disorder F41.1 and Bereavement Z63.4 [facility] [address] [id number] [address] [place] [address] Nov, Diverticulitis K57.92 [facility] [address] [id number] [address] [place] [address] Oct, Diverticulitis K57.92 [facility] [address] [id number] [address] [place] [address] Oct, Diverticulitis K57.92 [facility] [address] [facility] [id number] [address] [place] [address] Oct, Generalized anxiety disorder F41.1 [facility] [address] [facility] [id number] [address] [place] [address] Oct, Right lower quadrant abdomin al pain R10.31 and Diverticulitis K57.92 [facility] [address] [facility] [id number] [address] [place] [address] Sep, Generalized anxiety disorder F41.1 and Bereavement Z63.4 [facility] [address] [place] [id number] [address] [place] [address] Aug, [facility] [address] [place] [id number] [address] [place] [address] Aug, Generalized anxiety disorder F41.1 and Bereavement Z63.4 [facility] [address] [id number] [address] [address] Aug, Caries K02.9 [place] [address] [place] [id number] [address] [place] [address] Jul, Generalized anxiety disorder F41.1 and Bereavement Z63.4 [place] [id number] [place] [id number] [address] [place] [address] Jul, Other acute gastritis withou t hemorrhage K29.00 ; Generalized anxiety disorder F41.1 ; Tachycardia R00.0 and Essential hypertension I10 [place] [address] [place] [id number] [address] [place] [phone] Jul, Generalized anxiety disorder F41.1 and Bereavement Z63.4 [place] [address] [place] [id number] [address] [place] [address] Jun, Generalized anxiety disorder F41.1 and Bereavement Z63.4 [place] [address] [facility] [id number] [address] [place] [address] Jun, Generalized anxiety disorder F41.1 and Bereavement Z63.4 [facility] [address] [id number] [address] [address] 02 Jun, 2018 Dental examination Z01.20 [place] [id number] [id number] [address] [place] [address] May, Generalized anxiety disorder F41.1 and Bereavement Z63.4 [facility] [address] [id number] [address] [place] [phone] 08 May, 2018 Encounter for immunization Z 23 [facility] [address] [id number] [address] [place] [phone] 08 May, 2018 Generalized anxiety disorder F41.1 and Bereavement Z63.4 [facility] [address] [id number] [address] [place] [address] May, [facility] [address] [id number] [address] [place] [phone] 24 Apr, 2018 Generalized anxiety disorder F41.1 and Bereavement Z63.4 [facility] [address] [id number] [address] [place] [phone] 17 Apr, 2018 [facility] [address] [id number] [address] [place] [address] 13 Apr, 2018 Diverticulitis K57.92 [facility] [address] [id number] [address] [place] [phone] 10 Apr, 2018 Generalized anxiety disorder F41.1 and Bereavement Z63.4 [facility] [address] [id number] [address] [place] [phone] Mar, [facility] [address] [id number] [address] [place] [address] Mar, Diverticulitis K57.92 [facility] [address] [id number] [address] [place] [address] Mar, Generalized anxiety disorder F41.1 and Bereavement Z63.4 [facility] [address] [id number] [address] [place] [phone] 13 Mar, 2018 Hypertension I10 [facility] [address] [id number] [address] [place] [phone] Mar, Generalized anxiety disorder F41.1 and Bereavement Z63.4 [facility] [address] [id number] [address] [place] [phone] Feb, Generalized anxiety disorder F41.1 and Bereavement Z63.4 [facility] [address] [id number] [address] [place] [phone] Feb, [facility] [address] [id number] [address] [place] [phone] Feb, Generalized anxiety disorder F41.1 and Bereavement Z63.4 [facility] [address] [id number] [address] [place] [address] Feb, Generalized anxiety disorder F41.1 and Bereavement Z63.4 [facility] [address] [id number] [address] [place] [address] Jan, Hypertension I10 and Acute n on-recurrent maxillary sinusitis J01.00 [facility] [address] [id number] [address] [place] [address] December, [facility] [address] [id number] [address] [place] [address] December, Hypertension I10 [facility] [address] [id number] [address] [place] [address] December, Generalized anxiety disorder F41.1 [facility] [address] [id number] [address] [place] [address] Oct, Encounter for dental examina tion Z01.20 [facility] [address] [id number] [address] [place] [address] 06 Oct, 2017 Encounter for dental examina tion Z01.20 [facility] [address] [id number] [address] [place] [address] 02 Oct, 2017 Dental examination Z01.20 [facility] [address] [id number] [address] [place] [address] Oct, Generalized anxiety disorder F41.1 [facility] [address] [id number] [address] [place] [address] 30 Aug, 2017 Dental examination Z01.20 [facility] [address] [id number] [address] [place] [phone] Aug, Generalized anxiety disorder F41.1 [facility] [address] [id number] [address] [place] [address] Aug, [facility] [address] [id number] [address] [place] [address] 09 Aug, 2017 Encounter for dental examina tion Z01.20 [facility] [address] [id number] [address] [place] [address] 08 Aug, 2017 Subacute maxillary sinusitis J01.00 [facility] [address] [id number] [address] [place] [address] 22 Jul, 2017 Dental examination Z01.20 [facility] [address] [id number] [address] [place] [address] 19 Jul, 2017 Generalized anxiety disorder F41.1 [facility] [address] [id number] [address] [place] [address] 11 Jul, 2017 Diverticulitis K57.92 [facility] [address] [id number] [address] [place] [address] 28 Jun, 2017 Encounter for immunization Z 23 [facility] [address] [id number] [address] [place] [phone] 22 Jun, 2017 Dental examination Z01.20 [facility] [address] [id number] [address] [place] [address] 14 Jun, 2017 Generalized anxiety disorder F41.1 [facility] [address] [id number] [address] [place] [address] 07 Jun, 2017 Dental examination Z01.20 [facility] [address] [id number] [address] [place] [address] May, [facility] [address] [id number] [address] [place] [id number] May, Dental examination Z01.20 [facility] [address] [id number] [address] [place] [id number] May, Dental examination Z01.20 [facility] [address] [id number] [address] [place] [address] May, Dental examination Z01.20 [facility] [address] [id number] [address] [place] [address] May, [facility] [address] [id number] [address] [place] [address] May, Generalized anxiety disorder F41.1 [facility] [address] [id number] [address] [place] [phone] May, Localized edema R60.0 ; Yeas t vaginitis B37.3 and Gastroesophageal reflux disease with esophagitis K21.0 [facility] [address] [id number] [address] [place] [address] [id number] Apr, Dental examination Z01.20 [facility] [address] [id number] [address] [place] [address] Apr, Dental examination Z01.20 [facility] [address] [id number] [address] [place] [address] 05 Apr, 2017 Dental examination Z01.20 [facility] [address] [id number] [address] [place] [address] Mar, Dyspepsia R10.13 [facility] [address] [id number] [address] [place] [phone] Mar, Generalized anxiety disorder F41.1 [facility] [address] [id number] [address] [place] [address] Mar, Encounter for dental examina tion Z01.20 [facility] [address] [id number] [address] [place] [address] [id number] Mar, [facility] [address] [id number] [address] [place] [address] [id number] Mar, Dental examination Z01.20 [facility] [address] [id number] [address] [place] [phone] Feb, Hypertension I10 and Tachyca rdia R00.0 [facility] [address] [id number] [address] [place] [address] Feb, [facility] [address] [id number] [address] [place] [address] Feb, Generalized anxiety disorder F41.1 [facility] [address] [id number] [address] [place] [id number] Feb, Dental examination Z01.20 [facility] [address] [id number] [address] [place] [phone] Jan, Generalized anxiety disorder F41.1 [facility] [address] [id number] [address] [place] [address] December, Generalized anxiety disorder F41.1 [facility] [address] [id number] [address] [place] [address] [id number] December, Encounter for dental examina tion Z01.20 [facility] [address] [id number] [address] [place] [address] Nov, [facility] [address] [id number] [address] [place] [phone] Nov, [facility] [address] [id number] [address] [place] [address] Nov, Generalized anxiety disorder F41.1 [facility] [address] [id number] [address] [place] [address] Oct, [facility] [address] [facility] [id number] [address] [place] [address] [id number] 29 Oct, 2016 Dental examination Z01.20 [facility] [address] [address] 27 Oct, 2016 Vaginal dryness N89.8 [facility] [address] [place] [id number] [address] [place] [address] Oct, Pseudoseizures F44.5 [facility] [address] [place] [id number] [address] [place] [address] Oct, Generalized anxiety disorder F41.1 [place] [address] [phone] Sep, Abnormal uterine bleeding (A UB) N93.9 ; Vaginal dryness N89.8 and Screening breast examination Z12.39 [place] [address] [address] Sep, Dental examination Z01.20 [facility] [address] [place] [id number] [address] [place] [address] Sep, Generalized anxiety disorder F41.1 [place] [address] [id number] 06 Sep, 2016 Unspecified ovarian cyst, ri ght side N83.201 ; Unspecified ovarian cyst, left side N83.202 ; Yeast infection of the vagina B37.3 ; Mitral valve prolapse I34.1 and Hypertension I10 [facility] [id number] [place] [address] Aug, Generalized anxiety disorder F41.1 [place] [address] [place] [id number] [address] [place] [address] Jul, [place] [address] [id number] Jul, Generalized anxiety disorder F41.1 [place] [address] [address] 15 Jun, 2016 Generalized anxiety disorder F41.1 [facility] [address] [id number] [address] [place] [phone] 28 May, 2016 Encounter for immunization Z 23 [facility] [address] [id number] [address] [place] [phone] 17 May, 2016 Generalized anxiety disorder F41.1 and Depressive disorder, not elsewhere classified F32.9 [facility] [address] [id number] [address] [place] [phone] 28 Apr, 2016 Hypertension I10 [facility] [address] [id number] [address] [place] [phone] 22 Apr, 2016 Cervicalgia M54.2 [facility] [address] [id number] [address] [place] [phone] 12 Apr, 2016 Cervicalgia M54.2 [facility] [address] [id number] [address] [place] [phone] 09 Mar, 2016 Generalized anxiety disorder F41.1 and Depressive disorder, not elsewhere classified F32.9 [facility] [address] [id number] [address] [place] [id number] 14 Feb, 2016 Visit for dental examination Z01.20 [facility] [address] [id number] [address] [place] [phone] 11 Feb, 2016 Pseudoseizures F44.5 ; Migra ine without status migrainosus, not intractable, unspecified migraine type G43.909 and Essential hypertension I10 [facility] [address] [id number] [address] [place] [id number] 06 Feb, 2016 Dental examination Z01.20 [facility] [address] [id number] [address] [place] [phone] 05 Feb, 2016 Generalized anxiety disorder F41.1 and Depressive disorder, not elsewhere classified F32.9 [facility] [address] [id number] [address] [place] [phone] Jan, Tachycardia R00.0 [facility] [address] [facility] [id number] [address] [place] [phone] December, Eustachian tube dysfunction, bilateral H69.83 [place] [address] [address] [facility] [id number] [address] [place] [phone] December, Generalized anxiety disorder F41.1 and Depressive disorder, not elsewhere classified F32.9 [place] [address] [address] [facility] [id number] [address] [place] [phone] Nov, [place] [address] [address] [place] [id number] [address] [place] [phone] Nov, [place] [address] [address] [place] [id number] 35 [place] [address] Nov, Hypertension I10 ; Onychomyc osis B35.1 [...] and Complex cyst of left ovary N83.29 [place] [address] [address] [facility] [id number] [address] [place] [phone] 14 Nov, 2015 Sinusitis J32.9 [facility] [address] [facility] [id number] [address] [place] [address] Oct, Complex cyst of left ovary N 83.29 [place] [address] [address] [facility] [id number] [address] [place] [phone] Oct, Onychomycosis B35.1 [facility] [address] [facility] [id number] [address] [place] [id number] Oct, Dental examination Z01.20 [facility] [address] [facility] [id number] [address] [place] [address] Oct, Well woman exam Z01.419 ; En counter [...] History of colon polyps Z86.010 [place] [address] [address] [facility] [id number] [address] [place] [phone] 03 Oct, 2015 Generalized anxiety disorder F41.1 and Depressive disorder, not elsewhere classified F32.9 [place] [address] [address] [place] [id number] [address] [place] [phone] 22 Sep, 2015 Hypertension I10 and Onychom ycosis B35.1 [place] [address] [address] [place] [id number] [address] [place] [phone] 16 Sep, 2015 Skin tags, multiple acquired L91.8 [place] [address] [address] [facility] [id number] [address] [place] [address] Aug, [place] [address] [address] [facility] [id number] [address] [place] [phone] Aug, [place] [address] [address] [place] [id number] [address] [place] [phone] Aug, [place] [address] [address] [facility] [id number] [address] [place] [address] Aug, Generalized anxiety disorder F41.1 and Depressive disorder, not elsewhere classified F32.9 [place] [address] [address] [facility] [id number] [address] [place] [phone] Jul, Skin lesion L98.9 [place] [address] [address] [facility] [id number] [address] [place] [phone] Jun, Generalized anxiety disorder F41.1 and Depressive disorder, not elsewhere classified F32.9 [place] [address] [address] [place] [id number] [address] [place] [phone] Jun, [facility] [address] [id number] [address] [place] [phone] Jun, Generalized anxiety disorder F41.1 [facility] [address] [id number] [address] [place] [phone] May, Encounter for immunization Z 23 and Right shoulder pain M25.511 [facility] [address] [id number] [address] [place] [phone] Apr, [facility] [address] [id number] [address] [place] [phone] 14 Apr, 2015 Generalized anxiety disorder 300.02 and Depressive disorder, not elsewhere classified 311 [facility] [address] [id number] [address] [place] [address] [id number] Mar, Dental examination V72.2 [facility] [address] [id number] [address] [place] [phone] Mar, Generalized anxiety disorder 300.02 and Depressive disorder, not elsewhere classified 311 [facility] [address] [facility] [id number] [address] [place] [address] Mar, Depression, major, recurrent , 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.35 and 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 [facility] [address] [id number] [address] [place] [phone] Feb, Generalized anxiety disorder 300.02 and Depressive disorder, not elsewhere classified 311 [facility] [address] [id number] [address] [place] [id number] Feb, Dental examination V72.2 [facility] [address] [id number] [address] [place] [phone] Jan, Generalized anxiety disorder 300.02 and Depressive disorder, not elsewhere classified 311 [facility] [address] [id number] [address] [place] [phone] Jan, [facility] [address] [facility] [id number] [address] [place] [phone] December, Generalized anxiety disorder 300.02 and Depressive disorder, not elsewhere classified 311 [facility] [address] [facility] [id number] [address] [place] [phone] December, Major depressive disorder, r ecurrent, unspecified 296.30 and Panic disorder with agoraphobia 300.21 [facility] [address] [facility] [id number] [address] [place] [phone] Nov, [facility] [address] [facility] [id number] [address] [place] [phone] Nov, [facility] [address] [facility] [id number] [address] [place] [phone] Oct, [facility] [address] [facility] [id number] [address] [place] [phone] Oct, [facility] [address] [facility] [id number] [address] [place] [phone] Oct, [facility] [address] [facility] [id number] [address] [place] [phone] Oct, [facility] [address] [facility] [id number] [address] [place] [phone] Sep, [facility] [address] [facility] [id number] [address] [place] [phone] Sep, [facility] [address] [facility] [id number] [address] [place] [phone] Sep, [facility] [address] [facility] [id number] [address] [place] [phone] Sep, [facility] [address] [facility] [id number] [address] [place] [phone] Sep, [facility] [address] [facility] [id number] [address] [place] [phone] Sep, [facility] [address] [facility] [id number] [address] [place] [phone] Sep, 2014 [facility] [address] [id number] [address] [place] [address], [place] [address] Sep, 2014 [facility] [address] [id number] [address] [place] [address], [place] [address] Sep, 2014 [facility] [address] [id number] [address] [place] [address], [place] [address] Sep, [facility] [address] [id number] [address] [place] [address], [place] [address] Aug, [facility] [address] [id number] [address] [place] [address], [place] [address] Aug, [facility] [address] [id number] [address] [place] [address], [place] [address] Jul, [facility] [address] [id number] [address] [place] [address], [place] [address] Jul, [facility] [address] [id number] [address] [place] [address], [place] [address] Jul, [facility] [address] [id number] [address] [place] [address], [place] [address] Jul, [facility] [address] [id number] [address] [place] [address], [place] [address] Jul, [facility] [address] [id number] [address] [place] [address], [place] [address] Jul, [facility] [address] [id number] [address] [place] [address], [place] [phone] 05 Jul, 2014 [facility] [address] [id number] [address] [place] [address], [place] [address] 05 Jul, 2014 [facility] [address] [id number] [address] [place] [address], [place] [address] 04 Jul, 2014 [facility] [address] [id number] [address] [place] [address], [place] [address] 04 Jul, 2014 [facility] [address] [id number] [address] [place] [address], [place] [address] Jul, [facility] [address] [id number] [address] [place] [address], [place] [address] Jul, [facility] [address] [id number] [address] [place] [address], [place] [address] Jun, [facility] [address] [id number] [address] [place] [address], [place] [address] Jun, [facility] [address] [id number] [address] [place] [address], [place] [address] May, [facility] [address] [id number] [address] [place] [address], [place] [address] May, [facility] [address] [id number] [address] [place] [address], [place] [address] May, [facility] [address] [id number] [address] [place] [address], [place] [address] May, [facility] [address] [id number] [address] [place] [address], [place] [address] May, [facility] [address] [id number] [address] [place] [address], [place] [address] May, [facility] [address] [id number] [address] [place] [address], [place] [address] May, [facility] [address] [id number] [address] [place] [address], [place] [address] May, [facility] [address] [id number] [address] [place] [address], [place] [address] May, [facility] [address] [id number] [address] [place] [address], [place] [address] May, [facility] [address] [id number] [address] [place] [address], [place] [address] May, [facility] [address] [id number] [address] [place] [address], [place] [address] May, [facility] [address] [id number] [address] [place] [address], [place] [address] 30 Apr, 2014 [facility] [address] [id number] [address] [place] [address], [place] [address] 30 Apr, 2014 [facility] [address] [id number] [address] [place] [address], [place] [address] Apr, [facility] [address] [id number] [address] [place] [address], [place] [address] Apr, [facility] [address] [id number] [address] [place] [address], [place] [address] Apr, [facility] [address] [id number] [address] [place] [address], [place] [address] Apr, [facility] [address] [id number] [address] [place] [address], [place] [address] Feb, [facility] [address] [id number] [address] [place] [address], [place] [address] Feb, [facility] [address] [id number] [address] [place] [address], [place] [address] Feb, [facility] [address] [id number] [address] [place] [address], [place] [address] Feb, [facility] [address] [id number] [address] [place] [address], [place] [address] Feb, [facility] [address] [id number] [address] [place] [address], [place] [address] Feb, [facility] [address] [id number] [address] [place] [address], [place] [address] Jan, [facility] [address] [id number] [address] [place] [address], [place] [address] Jan, [facility] [address] [id number] [address] [place] [address], [place] [address] Jan, [facility] [address] [id number] [facility] [place] [address] Jan, [facility] [address] [id number] [address] [place] [address], [place] [address] Jan, [facility] [address] [id number] [address] [place] [address], [place] [address] Jan, [facility] [address] [id number] [address] [place] [address], [place] [address] Jan, [facility] [address] [id number] [address] [place] [address], [place] [address] Jan, [facility] [address] [id number] [address] [place] [address], [place] [address] December, [facility] [address] [id number] [address] [place] [address], [place] [address] December, [facility] [address] [id number] [address] [place] [address], [place] [address] December, [facility] [address] [id number] [address] [place] [address], [place] [address] December, [facility] [address] [id number] [address] [place] [address], [place] [address] Nov, [facility] [address] [id number] [address] [place] [address], [place] [address] Nov, [facility] [address] [id number] [address] [place] [address], [place] [address] Nov, [facility] [address] [id number] [address] [place] [address], [place] [address] Nov, [facility] [address] [id number] [address] [place] [address], [place] [address] Nov, [facility] [address] [id number] [address] [place] [address], [place] [address] Nov, [facility] [address] [id number] [address] [place] [address], [place] [address] Nov, [facility] [address] [id number] [address] [place] [address], [place] [address] Nov, [facility] [address] [id number] [address] [place] [address], [place] [address] Oct, [facility] [address] [id number] [address] [place] [address], [place] [address] Oct, [facility] [address] [id number] [address] [place] [address], [place] [address] Sep, [facility] [address] [id number] [address] [place] [address], [place] [address] Sep, [facility] [address] [id number] [address] [place] [id number] Sep, [facility] [address] [id number] [address] [place] [address], [place] [address] Sep, [facility] [address] [id number] [address] [place] [address] Sep, [facility] [address] [id number] [address] [place] [address], [place] [address] Sep, [facility] [address] [id number] [address] [place] [address], [place] [address] Aug, [facility] [address] [id number] [address] [place] [address], [place] [address] Aug, [facility] [address] [id number] [address] [place] [address] Aug, [facility] [address] [id number] [address] [place] [address], [place] [address] Aug, [facility] [address] [id number] [address] [place] [address], [place] [address] Jul, [facility] [address] [id number] [address] [place] [address], [place] [address] Jul, [facility] [address] [id number] [address] [place] [address], [place] [address] Jul, [facility] [address] [id number] [address] [place] [address], [place] [address] Jul, [facility] [address] [id number] [address] [place] [address], [place] [address] Jun, [facility] [address] [id number] [address] [place] [address], [place] [address] Jun, [facility] [address] [id number] [address] [place] [address], [place] [address] May, [facility] [address] [id number] [address] [place] [address], [place] [address] May, [facility] [address] [id number] [address] [place] [address], [place] [address] May, [facility] [address] [id number] [address] [place] [address], [place] [address] May, [facility] [address] [id number] [address] [place] [address], [place] [address] May, [facility] [address] [id number] [address] [place] [address], [place] [address] 17 Apr, 2013 [facility] [address] [id number] [address] [place] [address], [place] [address] Apr, [facility] [address] [id number] [address] [place] [address], [place] [address] Mar, [facility] [address] [id number] [address] [place] [address], [place] [address] Mar, [facility] [address] [id number] [address] [place] [address], [place] [address] 15 Mar, 2013 [facility] [address] [id number] [address] [place] [address], [place] [address] Mar, [facility] [address] [id number] [address] [place] [address], [place] [address] Feb, [facility] [address] [id number] [address] [place] [address], [place] [address] 17 Feb, 2013 [facility] [address] [id number] [address] [place] [address], [place] [address] Feb, [facility] [address] [id number] [address] [place] [address], [place] [address] Feb, [facility] [address] [id number] [address] [place] [address], [place] [address] Feb, [facility] [address] [id number] [address] [place] [address], [place] [address] Jan, [facility] [address] [id number] [address] [place] [address], [place] [address] Jan, [facility] [address] [id number] [address] [place] [address], [place] [address] Jan, [facility] [address] [id number] [address] [place] [address], [place] [address] Jan, [facility] [address] [id number] [address] [place] [address], [place] [address] Jan, [facility] [address] [id number] [address] [place] [address], [place] [address] December, [facility] [address] [id number] [address] [place] [address], [place] [address] December, [facility] [address] [id number] [address] [place] [address], [place] [address] Nov, [facility] [address] [id number] [address] [place] [address], [place] [address] Nov, [facility] [address] [id number] [address] [place] [address], [place] [address] Oct, [facility] [address] [id number] [address] [place] [address], [place] [address] Oct, [facility] [address] [id number] [address] [place] [address], [place] [address] 05 Oct, 2012 [facility] [address] [id number] [address] [place] [address], [place] [address] 14 Sep, 2012 [facility] [address] [id number] [address] [place] [address], [place] [address] 24 Aug, 2012 [facility] [address] [id number] [address] [place] [address], [place] [address] 16 Aug, 2012 [facility] [address] [id number] [address] [place] [address], [place] [address] 15 Aug, 2012 [facility] [address] [id number] [address] [place] [address], [place] [address] Aug, [facility] [address] [id number] [address] [place] [address], [place] [address] Jul, [facility] [address] [id number] [address] [place] [address], [place] [address] Jul, [facility] [address] [id number] [address] [place] [address], [place] [address] Jul, [facility] [address] [id number] [address] [place] [address], [place] [address] Jul, [facility] [address] [id number] [address] [place] [address], [place] [address] Jul, [facility] [address] [id number] [address] [place] [address], [place] [address] Jul, [facility] [address] [id number] [address] [place] [address], [place] [address] Jul, [facility] [address] [id number] [address] [place] [address], [place] [address] Jul, [facility] [address] [id number] [address] [place] [address], [place] [address] Jun, [facility] [address] [id number] [address] [place] [address], [place] [address] Jun, [facility] [address] [id number] [address] [place] [address], [place] [address] Jun, [facility] [address] [id number] [address] [place] [address], [place] [address] Jun, [facility] [address] [id number] [address] [place] [address], [place] [address] Jun, [facility] [address] [id number] [address] [place] [address], [place] [address] Jun, [facility] [address] [id number] [address] [place] [address], [place] [address] May, [facility] [address] [id number] [address] [place] [address], [place] [address] May, [facility] [address] [id number] [address] [place] [address], [place] [address] May, [facility] [address] [id number] [address] [place] [address], [place] [address] May, [facility] [address] [id number] [address] [place] [address], [place] [address] Apr, [facility] [address] [id number] [address] [place] [address], [place] [address] Apr, [facility] [address] [id number] [address] [place] [address], [place] [address] Mar, [facility] [address] [id number] [address] [place] [address], [place] [address] Jan, [facility] [address] [id number] [address] [place] [address], [place] [address] 20 Jan, 2012 [facility] [address] [id number] [address] [place] [address], [place] [address] 16 Jan, 2012 [facility] [address] [id number] [address] [place] [address], [place] [address] 15 Jan, 2012 [facility] [address] [id number] [address] [place] [address], [place] [address] Jan, [facility] [address] [id number] [address] [place] [address], [place] [address] 14 Jan, 2012 [facility] [address] [id number] [address] [place] [address], [place] [address] Jan, [facility] [address] [id number] [address] [place] [address], [place] [address] December, [facility] [address] [id number] [address] [place] [address], [place] [address] December, [facility] [address] [id number] [address] [place] [address], [place] [address] December, [facility] [address] [id number] [address] [place] [address], [place] [address] December, [facility] [address] [id number] [address] [place] [address], [place] [address] Nov, [facility] [address] [id number] [address] [place] [address], [place] [address] Nov, [facility] [address] [id number] [address] [place] [address], [place] [address] Oct, [facility] [address] [id number] [address] [place] [address], [place] [address] Oct, [facility] [address] [id number] [address] [place] [address], [place] [address] Oct, [facility] [address] [id number] [address] [place] [address], [place] [address] Sep, [facility] [address] [id number] [address] [place] [address], [place] [address] Sep, [facility] [address] [id number] [address] [place] [address], [place] [address] Sep, [facility] [address] [id number] [address] [place] [address], [place] [address] Aug, [facility] [address] [id number] [address] [place] [address], [place] [address] Aug, [facility] [address] [id number] [address] [place] [address], [place] [address] Aug, [facility] [address] [id number] [address] [place] [address], [place] [address] Aug, [facility] [address] [id number] [address] [place] [address], [place] [address] Aug, [facility] [address] [id number] [address] [place] [address], [place] [address] Aug, [facility] [address] [id number] [address] [place] [address], [place] [address] Aug, [facility] [address] [id number] [address] [place] [address], [place] [address] 08 Jul, 2011 [facility] [address] [id number] [address] [place] [address], [place] [address] 02 Jul, 2011 [facility] [address] [id number] [address] [place] [address], [place] [address] 30 Jun, 2011 [facility] [address] [id number] [address] [place] [address], [place] [address] 28 Jun, 2011 [facility] [address] [id number] [address] [place] [address], [place] [address] 17 Jun, 2011 [facility] [address] [id number] [address] [place] [address], [place] [address] 15 Jun, 2011 [facility] [address] [id number] [address] [place] [address], [place] [address] 14 Jun, 2011 [facility] [address] [id number] [address] [place] [address], [place] [address] 14 Jun, 2011 [facility] [address] [id number] [address] [place] [address], [place] [address] 07 Jun, 2011 [facility] [address] [id number] [address] [place] [address], [place] [address] 07 Jun, 2011 [facility] [address] [id number] [address] [place] [address], [place] [address] Jun, [facility] [address] [id number] [address] [place] [address], [place] [address] Jun, [facility] [address] [id number] [address] [place] [address], [place] [address] May, [facility] [address] [id number] [address] [place] [address], [place] [address] May, [facility] [address] [id number] [address] [place] [address], [place] [address] May, [facility] [address] [id number] [address] [place] [address], [place] [address] May, [facility] [address] [id number] [address] [place] [address], [place] [address] May, [facility] [address] [id number] [address] [place] [address], [place] [address] May, [facility] [address] [id number] [address] [place] [address], [place] [address] Feb, [facility] [address] [id number] [address] [place] [address], [place] [address] December, [facility] [address] [id number] [address] [place] [address], [place] [address] Jul, [facility] [address] [id number] [address] [place] [address], [place] [address] Jul, [facility] [address] [id number] [address] [place] [address], [place] [address] Jul, [facility] [address] [id number] [address] [place] [address], [place] [address] Jul, [facility] [address] [id number] [address] [place] [address], [place] [address] 15 Jun, 2010 [facility] [address] [id number] [address] [place] [address] 31 Jul, 2009 [facility] [address] [id number] [address] [place] [phone] Jul, [facility] [address] [id number] [address] [place] [phone] Jul, [facility] [address] [facility] [id number] [address] [place] [id number] Jul, [facility] [address] [id number] [address] [place] [phone] Jul, [facility] [address] [id number] [address] [place] [phone] Jul, [facility] [address] [facility] [id number] [address] [place] [phone] Jan, [facility] [address] [facility] [id number] [address] [place] [id number] 16 Sep, 2008 [facility] [address] [facility] [id number] [address] [place] [phone] Sep, IMMUNIZATIONS No Known Immunizations SOCIAL HISTORY [...]
--- OUTSIDE RECORDS SUMMARY | 2020-01-27 10:04 | XMS REPORT ---
Author Author Silvia MERCHANT Organization [facility] Address [address] [place] [address] Care Team Providers Care Lunchroom Operator Name Role Phone KVNG MERCHANT Unavailable PROBLEMS Type Condition ICD9-CM Code [id number] Code Onset Dates Condition S tatus SNOMED Code Problem Hypertension I10 Active 4382845 3 Problem Generalized anxiety disorder F41.1 A ctive 257899646 Problem History of colon polyps Z86.010 Active 520461455 Problem History of diverticulitis Z87.19 Acti ve 037545374357621 Problem Family history of diabetes mellitus Z83.3 Active 909312664 Problem Excessive and frequent menstruation with irregular cycle N92.1 Active 645062287 Problem Hot flashes N95.1 Active 80831586 8 Problem Gastroesophageal reflux disease with esophagitis K 21.0 Active 023677752 Problem History of ovarian cyst Z87.42 Active 27202240 Problem Diverticulitis K57.92 Active 37352 6006 Problem Dense breast tissue R92.2 Active 110791447 Problem Perimenopausal N95.1 Active 07631 3009426874 Problem Mitral valve prolapse I34.1 Active 887448369 Problem Abnormal uterine bleeding (AUB) N93.9 Active 83938751795863 Problem Tachycardia R00.0 Active 1798469 ALLERGIES No Information ENCOUNTERS Encounter Location Date Diagnosis [facility] [address] [facility] [id number] [address] [place] [address] Nov, [facility] [address] [facility] [id number] [address] [place] [address] Nov, [place] [id number] [facility] [facility] [id number] [address] [place] [address] Oct, Generalized anxiety disorder F41.1 and Bereavement Z63.4 [facility] [address] [facility] [id number] [address] [place] [address] 16 Oct, 2019 Acute non-recurrent sinusiti s, unspecified location J01.90 [facility] [address] [id number] [address] [place] [address] 05 Oct, 2019 Acute non-recurrent frontal sinusitis J01.10 [facility] [address] [id number] [address] [place] [address] 27 Sep, 2019 Generalized anxiety disorder F41.1 and Bereavement Z63.4 [facility] [address] [id number] [address] [place] [address] 17 Sep, 2019 [facility] [address] [id number] [address] [place] [address] 11 Sep, 2019 Generalized anxiety disorder F41.1 and Bereavement Z63.4 [place] [address] [id number] [address] [place] [address] 15 Aug, 2019 Generalized anxiety disorder F41.1 and Bereavement Z63.4 [facility] [address] [id number] [address] [place] [address] Aug, Generalized anxiety disorder F41.1 [facility] [address] [id number] [address] [place] [address] Aug, Viral upper respiratory trac t infection J06.9 [facility] [address] [id number] [address] [place] [address] Jul, Generalized anxiety disorder F41.1 and Bereavement Z63.4 [facility] [address] [id number] [address] [place] [address] Jul, Acute non-recurrent frontal sinusitis J01.10 [facility] [address] [id number] [address] [place] [address] Jul, [facility] [address] [facility] [id number] [address] [place] [address] Jul, Sore throat J02.9 and Uvulit is K12.2 [place] [address] [id number] [address] [place] [address] 16 Jul, 2019 Generalized anxiety disorder F41.1 [facility] [address] [id number] [place] [address] Jul, Caries K02.9 [facility] [address] [facility] [id number] [address] [place] [address] Jun, Generalized anxiety disorder F41.1 [facility] [address] [facility] [id number] [address] [place] [address] Jun, Generalized anxiety disorder F41.1 and Bereavement Z63.4 [facility] [address] [id number] [address] [place] [address] May, Generalized anxiety disorder F41.1 [facility] [address] [facility] [id number] [address] [place] [address] May, Dysuria R30.0 [facility] [address] [facility] [id number] [address] [place] [address] May, Generalized anxiety disorder F41.1 and Bereavement Z63.4 [facility] [address] [facility] [id number] [address] [place] [address] May, [facility] [address] [facility] [id number] [address] [place] [address] Apr, Generalized anxiety disorder F41.1 and Bereavement Z63.4 [facility] [address] [facility] [id number] [address] [place] [address] Apr, Generalized anxiety disorder F41.1 [facility] [address] [id number] [address] [place] [address] Mar, Caries K02.9 ; Dental examin ation Z01.20 ; Periodontitis K05.30 and Oral health maintenance status requiring routine preventive dental care K08.9 [facility] [address] [facility] [id number] [address] [place] [address] Mar, Generalized anxiety disorder F41.1 [facility] [address] [facility] [id number] [address] [place] [address] Mar, Gastrointestinal hemorrhage associated with gastroduodenitis K29.91 [facility] [address] [facility] [id number] [address] [place] [address] Mar, Generalized anxiety disorder F41.1 and Bereavement Z63.4 [facility] [address] [id number] [address] [place] [address] Mar, [facility] [address] [facility] [id number] [address] [place] [address] Mar, [facility] [address] [facility] [id number] [address] [place] [address] Mar, [facility] [address] [facility] [id number] [address] [place] [address] Mar, Tachycardia R00.0 and Essent ial hypertension I10 [facility] [address] [facility] [id number] [address] [place] [address] Feb, Generalized anxiety disorder F41.1 [facility] [address] [facility] [id number] [address] [place] [address] Feb, Generalized anxiety disorder F41.1 and Bereavement Z63.4 [facility] [address] [facility] [id number] [address] [place] [address] Feb, Generalized anxiety disorder F41.1 [facility] [address] [facility] [id number] [address] [place] [address] Feb, Generalized anxiety disorder F41.1 and Bereavement Z63.4 [facility] [address] [facility] [id number] [address] [place] [address] Jan, [facility] [address] [facility] [id number] [address] [place] [address] Jan, Breast cancer screening by trenton crenshaw Z12.31 [facility] [address] [facility] [id number] [address] [place] [address] Jan, Generalized anxiety disorder F41.1 and Bereavement Z63.4 [facility] [address] [facility] [id number] [address] [place] [address] Jan, [facility] [address] [facility] [id number] [address] [place] [address] December, Generalized anxiety disorder F41.1 and Bereavement Z63.4 [facility] [address] [facility] [id number] [address] [place] [address] December, Diverticulitis K57.92 ; Dysu nick R30.0 ; Other constipation K59.09 and Lower abdominal pain R10.30 [facility] [address] [facility] [id number] [address] [place] [address] Nov, Diverticulitis K57.92 [facility] [address] [facility] [id number] [address] [place] [address] Nov, Generalized anxiety disorder F41.1 and Bereavement Z63.4 [facility] [address] [facility] [id number] [address] [place] [address] Nov, Generalized anxiety disorder F41.1 and Bereavement Z63.4 [facility] [address] [facility] [id number] [address] [place] [address] Nov, Diverticulitis K57.92 [facility] [address] [facility] [id number] [address] [place] [address] Oct, Diverticulitis K57.92 [facility] [address] [facility] [id number] [address] [place] [address] Oct, Diverticulitis K57.92 [facility] [address] [facility] [id number] [address] [place] [address] Oct, Generalized anxiety disorder F41.1 [facility] [address] [facility] [id number] [address] [place] [address] Oct, Right lower quadrant abdomin al pain R10.31 and Diverticulitis K57.92 [facility] [address] [facility] [id number] [address] [place] [address] Sep, Generalized anxiety disorder F41.1 and Bereavement Z63.4 [facility] [address] [facility] [id number] [address] [place] [phone] Aug, [facility] [address] [facility] [id number] [address] [place] [address] Aug, Generalized anxiety disorder F41.1 and Bereavement Z63.4 [facility] [address] [id number] [address] [place] [address] Aug, Caries K02.9 [place] [address] [place] [id number] [address] [place] [address] Jul, Generalized anxiety disorder F41.1 and Bereavement Z63.4 [place] [address] [place] [id number] [address] [place] [address] Jul, Other acute gastritis withou t hemorrhage K29.00 ; Generalized anxiety disorder F41.1 ; Tachycardia R00.0 and Essential hypertension I10 [place] [address] [facility] [facility] [id number] [address] [place] [address] Jul, Generalized anxiety disorder F41.1 and Bereavement Z63.4 [facility] [address] [facility] [id number] [address] [place] [address] Jun, Generalized anxiety disorder F41.1 and Bereavement Z63.4 [place] [address] [facility] [facility] [id number] [address] [place] [address] Jun, Generalized anxiety disorder F41.1 and Bereavement Z63.4 [facility] [address] [id number] [address] [place] [address] 02 Jun, 2018 Dental examination Z01.20 [facility] [address] [facility] [id number] [address] [place] [address] May, Generalized anxiety disorder F41.1 and Bereavement Z63.4 [facility] [address] [id number] [address] [place] [address] 08 May, 2018 Encounter for immunization Z 23 [facility] [address] [id number] [address] [place] [address] 08 May, 2018 Generalized anxiety disorder F41.1 and Bereavement Z63.4 [facility] [address] [id number] [address] [place] [phone] May, [facility] [address] [id number] [address] [place] [address] 24 Apr, 2018 Generalized anxiety disorder F41.1 and Bereavement Z63.4 [facility] [address] [id number] [address] [place] [address] 17 Apr, 2018 [facility] [address] [id number] [address] [place] [address] Apr, Diverticulitis K57.92 [facility] [address] [id number] [address] [place] [address] 10 Apr, 2018 Generalized anxiety disorder F41.1 and Bereavement Z63.4 [facility] [address] [id number] [address] [place] [address] Mar, [facility] [address] [id number] [address] [place] [address] Mar, Diverticulitis K57.92 [facility] [address] [id number] [address] [place] [address] Mar, Generalized anxiety disorder F41.1 and Bereavement Z63.4 [facility] [address] [facility] [id number] [address] [place] [address] 13 Mar, 2018 Hypertension I10 [facility] [address] [id number] [address] [place] [address] 07 Mar, 2018 Generalized anxiety disorder F41.1 and Bereavement Z63.4 [facility] [address] [id number] [address] [place] [address] Feb, Generalized anxiety disorder F41.1 and Bereavement Z63.4 [facility] [address] [id number] [address] [place] [address] Feb, [facility] [address] [id number] [address] [place] [address] Feb, Generalized anxiety disorder F41.1 and Bereavement Z63.4 [facility] [address] [id number] [address] [place] [address] Feb, Generalized anxiety disorder F41.1 and Bereavement Z63.4 [facility] [address] [id number] [address] [place] [address] Jan, Hypertension I10 and Acute n on-recurrent maxillary sinusitis J01.00 [facility] [address] [id number] [address] [place] [address] December, [facility] [address] [id number] [address] [place] [address] December, Hypertension I10 [facility] [address] [id number] [address] [place] [address] December, Generalized anxiety disorder F41.1 [facility] [address] [id number] [address] [place] [address] Oct, Encounter for dental examina tion Z01.20 [facility] [address] [id number] [address] [place] [address] Oct, Encounter for dental examina tion Z01.20 [facility] [address] [id number] [address] [place] [address] Oct, Dental examination Z01.20 [facility] [address] [id number] [address] [place] [address] Oct, Generalized anxiety disorder F41.1 [facility] [address] [id number] [address] [address] 30 Aug, 2017 Dental examination Z01.20 [facility] [address] [id number] [address] [place] [address] 29 Aug, 2017 Generalized anxiety disorder F41.1 [facility] [address] [id number] [address] [place] [address] Aug, [facility] [address] [id number] [address] [place] [address] 09 Aug, 2017 Encounter for dental examina tion Z01.20 [facility] [address] [id number] [address] [place] [address] 08 Aug, 2017 Subacute maxillary sinusitis J01.00 [facility] [address] [id number] [address] [place] [address] 22 Jul, 2017 Dental examination Z01.20 [facility] [address] [id number] [address] [place] [address] 19 Jul, 2017 Generalized anxiety disorder F41.1 [facility] [address] [id number] [address] [place] [address] 11 Jul, 2017 Diverticulitis K57.92 [facility] [address] [id number] [address] [place] [address] 28 Jun, 2017 Encounter for immunization Z 23 [facility] [address] [id number] [place] [address] 22 Jun, 2017 Dental examination Z01.20 [facility] [address] [id number] [address] [place] [address] 14 Jun, 2017 Generalized anxiety disorder F41.1 [facility] [address] [id number] [address] [address] 07 Jun, 2017 Dental examination Z01.20 [facility] [address] [id number] [address] [place] [address] May, [facility] [address] [id number] [address] [place] [address] [id number] May, Dental examination Z01.20 [facility] [address] [id number] [address] [place] [id number] May, Dental examination Z01.20 [facility] [address] [id number] [address] [place] [address] May, Dental examination Z01.20 [facility] [address] [id number] [address] [place] [address] May, [facility] [address] [id number] [address] [place] [address] May, Generalized anxiety disorder F41.1 [facility] [address] [id number] [address] [place] [address] May, Localized edema R60.0 ; Yeas t vaginitis B37.3 and Gastroesophageal reflux disease with esophagitis K21.0 [facility] [address] [id number] [address] [place] [address] [id number] Apr, Dental examination Z01.20 [facility] [address] [id number] [address] [place] [address] Apr, Dental examination Z01.20 [facility] [address] [id number] [address] [place] [address] 05 Apr, 2017 Dental examination Z01.20 [facility] [address] [id number] [address] [place] [address] Mar, Dyspepsia R10.13 [facility] [address] [id number] [address] [place] [address] Mar, Generalized anxiety disorder F41.1 [facility] [address] [id number] [address] [place] [address] Mar, Encounter for dental examina tion Z01.20 [facility] [address] [id number] [address] [place] [address] [id number] Mar, [facility] [address] [id number] [address] [place] [address] [id number] Mar, Dental examination Z01.20 [facility] [address] [id number] [address] [place] [address] Feb, Hypertension I10 and Tachyca rdia R00.0 [facility] [address] [id number] [address] [address] Feb, [facility] [address] [id number] [address] [place] [address] Feb, Generalized anxiety disorder F41.1 [facility] [address] [id number] [address] [place] [address] [id number] Feb, Dental examination Z01.20 [facility] [address] [id number] [address] [place] [address] Jan, Generalized anxiety disorder F41.1 [facility] [address] [id number] [address] [place] [address] December, Generalized anxiety disorder F41.1 [facility] [address] [id number] [address] [place] [address] [id number] December, Encounter for dental examina tion Z01.20 [facility] [address] [id number] [address] [place] [address] Nov, [facility] [address] [id number] [address] [place] [address] Nov, [facility] [address] [id number] [address] [place] [address] Nov, Generalized anxiety disorder F41.1 [facility] [address] [id number] [address] [place] [phone] Oct, [facility] [address] [id number] [address] [place] [address] [id number] 29 Oct, 2016 Dental examination Z01.20 [place] [address] [address] 27 Oct, 2016 Vaginal dryness N89.8 [place] [address] [place] [id number] [address] [place] [address] Oct, Pseudoseizures F44.5 [place] [address] [phone] Oct, Generalized anxiety disorder F41.1 [place] [address] [phone] Sep, Abnormal uterine bleeding (A UB) N93.9 ; Vaginal dryness N89.8 and Screening breast examination Z12.39 [place] [address] [id number] Sep, Dental examination Z01.20 [place] [address] [address] Sep, Generalized anxiety disorder F41.1 [place] [address] [phone] 06 Sep, 2016 Unspecified ovarian cyst, ri ght side N83.201 ; Unspecified ovarian cyst, left side N83.202 ; Yeast infection of the vagina B37.3 ; Mitral valve prolapse I34.1 and Hypertension I10 [place] [id number] [place] [phone] Aug, Generalized anxiety disorder F41.1 [place] [address] [address] [place] [id number] [place] [phone] Jul, [place] [address] [address] Jul, Generalized anxiety disorder F41.1 [place] [address] [phone] Jun, Generalized anxiety disorder F41.1 [facility] [address] [facility] [id number] [address] [place] [phone] 28 May, 2016 Encounter for immunization Z 23 [facility] [address] [id number] [address] [place] [phone] 17 May, 2016 Generalized anxiety disorder F41.1 and Depressive disorder, not elsewhere classified F32.9 [facility] [address] [id number] [address] [place] [phone] 28 Apr, 2016 Hypertension I10 [facility] [address] [id number] [address] [place] [phone] 22 Apr, 2016 Cervicalgia M54.2 [facility] [address] [id number] [address] [place] [phone] 12 Apr, 2016 Cervicalgia M54.2 [facility] [address] [facility] [id number] [address] [place] [phone] Mar, Generalized anxiety disorder F41.1 and Depressive disorder, not elsewhere classified F32.9 [facility] [address] [id number] [address] [place] [address] [phone] 14 Feb, 2016 Visit for dental examination Z01.20 [facility] [address] [facility] [id number] [address] [place] [phone] 11 Feb, 2016 Pseudoseizures F44.5 ; Migra ine without status migrainosus, not intractable, unspecified migraine type G43.909 and Essential hypertension I10 [facility] [address] [id number] [address] [place] [address] [id number] 06 Feb, 2016 Dental examination Z01.20 [facility] [address] [id number] [address] [place] [phone] Feb, Generalized anxiety disorder F41.1 and Depressive disorder, not elsewhere classified F32.9 [facility] [address] [id number] [address] [place] [phone] Jan, Tachycardia R00.0 [facility] [address] [id number] [address] [place] [id number] December, Eustachian tube dysfunction, bilateral H69.83 [place] [id number] N FORMERLY NAMED [facility] [id number] [address] [place] [address] December, Generalized anxiety disorder F41.1 and Depressive disorder, not elsewhere classified F32.9 [facility] [address] [facility] [address]AMED [facility] [id number] [address] [place] [id number] Nov, [place] [address] [address] [place] [id number] [address] [place] [address] Nov, [place] [address] N FORMERLY NAMED [facility] [id number] [address] [place] [id number] Nov, Hypertension I10 ; Onychomyc osis B35.1 [...] and Complex cyst of left ovary N83.29 [facility] [address] FORMER[facility] [address]AMED [facility] [id number] [address] [place] [id number] 14 Nov, 2015 Sinusitis J32.9 [facility] [address] FORMERLY NAMED [facility] [id number] [address] [place] [id number] Oct, Complex cyst of left ovary N 83.29 [facility] [address] N FORMERLY NAMED [facility] [id number] [address] [place] [id number] Oct, Onychomycosis B35.1 [facility] [address] [id number] [address] [place] [id number] Oct, Dental examination Z01.20 [facility] [address] FORMERLY NAMED [facility] [id number] [address] [place] [address] Oct, Well woman exam Z01.419 ; En [...] R92.2 and History of colon polyps Z86.010 [place] [address] [address] FORMERLY NAMED [facility] [id number] [address] [place] [address] 03 Oct, 2015 Generalized anxiety disorder F41.1 and Depressive disorder, not elsewhere classified F32.9 [place] [address] [address] [place] [id number] [address] [place] [address] 22 Sep, 2015 Hypertension I10 and Onychom ycosis B35.1 [place] [address] [address] [place] [id number] [address] [place] [address] Sep, Skin tags, multiple acquired L91.8 [place] [address] N FORMERLY NAMED [facility] [id number] [address] [place] [id number] Aug, [place] [address] [place] [id number] [address] [place] [address] Aug, [place] [address] [place] [id number] [address] [place] [phone] Aug, [place] [address] N FORMERLY NAMED [facility] [id number] [address] [place] [id number] Aug, Generalized anxiety disorder F41.1 and Depressive disorder, not elsewhere classified F32.9 [place] [address] N FORMERLY NAMED [facility] [id number] [address] [place] [address] Jul, Skin lesion L98.9 [place] [address] N FORMERLY NAMED [facility] [id number] [address] [place] [id number] Jun, Generalized anxiety disorder F41.1 and Depressive disorder, not elsewhere classified F32.9 [place] [address] [address] [place] [id number] [address] [place] [id number] Jun, [facility] [address] [id number] [address] [place] [address] Jun, Generalized anxiety disorder F41.1 [facility] [address] [id number] [address] [place] [address] May, Encounter for immunization Z 23 and Right shoulder pain M25.511 [facility] [address] [id number] [address] [place] [address] Apr, [facility] [address] [id number] [address] [place] [address] 14 Apr, 2015 Generalized anxiety disorder 300.02 and Depressive disorder, not elsewhere classified 311 [facility] [address] [id number] [address] [place] [address] [id number] Mar, Dental examination V72.2 [facility] [address] [id number] [address] [place] [address] Mar, Generalized anxiety disorder 300.02 and Depressive disorder, not elsewhere classified 311 [facility] [address] [id number] [address] [place] [address] Mar, Depression, major, recurrent , 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.35 and 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 [facility] [address] [id number] [address] [place] [address] Feb, Generalized anxiety disorder 300.02 and Depressive disorder, not elsewhere classified 311 [facility] [address] [id number] [address] [place] [address] [id number] Feb, Dental examination V72.2 [facility] [address] [id number] [address] [place] [address] Jan, Generalized anxiety disorder 300.02 and Depressive disorder, not elsewhere classified 311 [facility] [address] [id number] [address] [place] [address] Jan, [facility] [address] [id number] [address] [place] [address] December, Generalized anxiety disorder 300.02 and Depressive disorder, not elsewhere classified 311 [facility] [address] FORMERLY NAMED [facility] [id number] [address] [place] [address] December, Major depressive disorder, r ecurrent, unspecified 296.30 and Panic disorder with agoraphobia 300.21 [facility] [address] FORMERLY [address]AMED [facility] [id number] [address] [place] [address] 14 Nov, 2014 [facility] [address] FORMER[facility] NAMED [facility] [id number] [address] [place] [id number] Nov, [facility] [address] FORMER[facility] NAMED [facility] [id number] [address] [place] [address] Oct, [facility] [address] FORMER[facility] [address]AMED [facility] [id number] [address] [place] [id number] Oct, [facility] [address] FORMER[facility] NAMED [facility] [id number] [address] [place] [phone] Oct, [facility] [address] FORMER[facility] NAMED [facility] [id number] [address] [place] [phone] Oct, [facility] [address] FORMER[facility] NAMED [facility] [id number] [address] [place] [address] Sep, [facility] [address] FORMERLY NAMED [facility] [id number] [address] [place] [phone] Sep, [facility] [address] FORMER[facility] NAMED [facility] [id number] [address] [place] [id number] Sep, [facility] [address] FORMER[facility] NAMED [facility] [id number] [address] [place] [phone] Sep, [facility] [address] FORMER[facility] [address]AMED [facility] [id number] [address] [place] [phone] Sep, [facility] [address] FORMER[facility] NAMED [facility] [id number] [address] [place] [id number] Sep, [facility] [address] FORMER[facility] [address]AMED [facility] [id number] [address] [place] [id number] Sep, 2014 [facility] [address] [id number] [address] [place] [address], [place] [address] Sep, 2014 [facility] [address] [id number] [address] [place] [address], [place] [address] Sep, 2014 [facility] [address] [id number] [address] [place] [address], [place] [address] Sep, [facility] [address] [id number] [address] [place] [address], [place] [address] Aug, [facility] [address] [id number] [address] [place] [address], [place] [address] Aug, [facility] [address] [id number] [address] [place] [address], [place] [address] Jul, [facility] [address] [id number] [address] [place] [address], [place] [address] Jul, [facility] [address] [id number] [address] [place] [address], [place] [address] Jul, [facility] [address] [id number] [address] [place] [address], [place] [address] Jul, [facility] [address] [id number] [address] [place] [address], [place] [address] Jul, [facility] [address] [id number] [address] [place] [address], [place] [address] Jul, [facility] [address] [id number] [address] [place] [address], [place] [address] 05 Jul, 2014 [facility] [address] [id number] [address] [place] [address], [place] [address] 05 Jul, 2014 [facility] [address] [id number] [address] [place] [address], [place] [address] 04 Jul, 2014 [facility] [address] [id number] [address] [place] [address], [place] [address] Jul, [facility] [address] [id number] [address] [place] [address], [place] [address] Jul, [facility] [address] [id number] [address] [place] [address], [place] [address] Jul, [facility] [address] [id number] [address] [place] [address], [place] [address] Jun, [facility] [address] [id number] [address] [place] [address], [place] [address] Jun, [facility] [address] [id number] [address] [place] [address], [place] [address] May, [facility] [address] [id number] [address] [place] [address], [place] [address] May, [facility] [address] [id number] [address] [place] [address], [place] [address] May, [facility] [address] [id number] [address] [place] [address], [place] [address] May, [facility] [address] [id number] [address] [place] [address], [place] [address] May, [facility] [address] [id number] [address] [place] [address], [place] [address] May, [facility] [address] [id number] [address] [place] [address], [place] [address] May, [facility] [address] [id number] [address] [place] [address], [place] [address] May, [facility] [address] [id number] [address] [place] [address], [place] [address] May, [facility] [address] [id number] [address] [place] [address], [place] [address] May, [facility] [address] [id number] [address] [place] [address], [place] [address] May, [facility] [address] [id number] [address] [place] [address], [place] [address] May, [facility] [address] [id number] [address] [place] [address], [place] [address] Apr, [facility] [address] [id number] [address] [place] [address], [place] [address] Apr, [facility] [address] [id number] [address] [place] [address], [place] [address] Apr, [facility] [address] [id number] [address] [place] [address], [place] [address] Apr, [facility] [address] [id number] [address] [place] [address], [place] [address] Apr, [facility] [address] [id number] [address] [place] [address], [place] [address] Apr, [facility] [address] [id number] [address] [place] [address], [place] [address] Feb, [facility] [address] [id number] [address] [place] [address], [place] [address] Feb, [facility] [address] [id number] [address] [place] [address], [place] [address] Feb, [facility] [address] [id number] [address] [place] [address], [place] [address] Feb, [facility] [address] [id number] [address] [place] [address], [place] [address] Feb, [facility] [address] [id number] [address] [place] [address], [place] [address] Feb, [facility] [address] [id number] [address] [place] [address], [place] [address] Jan, [facility] [address] [id number] [address] [place] [address], [place] [address] Jan, [facility] [address] [id number] [address] [place] [address], [place] [address] Jan, [facility] [address] [id number] [address] [place] [address], [place] [address] Jan, [facility] [address] [id number] [address] [place] [address], [place] [address] Jan, [facility] [address] [id number] [address] [place] [address], [place] [address] Jan, [facility] [address] [id number] [address] [place] [address], [place] [address] Jan, [facility] [address] [id number] [address] [place] [address], [place] [address] Jan, [facility] [address] [id number] [address] [place] [address], [place] [address] December, [facility] [address] [id number] [address] [place] [address], [place] [address] December, [facility] [address] [id number] [address] [place] [address], [place] [address] December, [facility] [address] [id number] [address] [place] [address], [place] [address] December, [facility] [address] [id number] [address] [place] [address], [place] [address] Nov, [facility] [address] [id number] [address] [place] [address], [place] [address] Nov, [facility] [address] [id number] [address] [place] [address], [place] [address] Nov, [facility] [address] [id number] [address] [place] [address], [place] [address] Nov, [facility] [address] [id number] [address] [place] [address], [place] [address] Nov, [facility] [address] [id number] [address] [place] [address], [place] [address] Nov, [facility] [address] [id number] [address] [place] [address], [place] [address] Nov, [facility] [address] [id number] [address] [place] [address], [place] [address] Nov, [facility] [address] [id number] [address] [place] [address], [place] [address] Oct, [facility] [address] [id number] [address] [place] [address], [place] [address] Oct, [facility] [address] [id number] [address] [place] [address], [place] [address] Sep, [facility] [address] [id number] [address] [place] [address], [place] [address] Sep, [facility] [address] [id number] [address] [place] [address], [place] [id number] Sep, [facility] [address] [id number] [address] [place] [address], [place] [address] Sep, [facility] [address] [id number] [address] [place] [address], [place] [address] Sep, [facility] [address] [id number] [address] [place] [address], [place] [address] Sep, [facility] [address] [id number] [address] [place] [address], [place] [address] Aug, [facility] [address] [id number] [address] [place] [address], [place] [address] Aug, [facility] [address] [id number] [address] [place] [address], [place] [address] Aug, [facility] [address] [id number] [address] [place] [address], [place] [address] Aug, [facility] [address] [id number] [address] [place] [address], [place] [address] Jul, [facility] [address] [id number] [address] [place] [address], [place] [address] Jul, [facility] [address] [id number] [address] [place] [address], [place] [address] Jul, [facility] [address] [id number] [address] [place] [address], [place] [address] Jul, [facility] [address] [id number] [address] [place] [address], [place] [address] Jun, [facility] [address] [id number] [address] [place] [address], [place] [address] Jun, [facility] [address] [id number] [address] [place] [address], [place] [address] May, [facility] [address] [id number] [address] [place] [address], [place] [address] May, [facility] [address] [id number] [address] [place] [address], [place] [address] May, [facility] [address] [id number] [address] [place] [address], [place] [address] May, [facility] [address] [id number] [address] [place] [address], [place] [address] May, [facility] [address] [id number] [address] [place] [address], [place] [address] Apr, [facility] [address] [id number] [address] [place] [address], [place] [address] Apr, [facility] [address] [id number] [address] [place] [address], [place] [address] Mar, [facility] [address] [id number] [address] [place] [address], [place] [address] Mar, [facility] [address] [id number] [address] [place] [address], [place] [address] Mar, [facility] [address] [id number] [address] [place] [address], [place] [address] Mar, [facility] [address] [id number] [address] [place] [address], [place] [address] Feb, [facility] [address] [id number] [address] [place] [address], [place] [address] 17 Feb, 2013 [facility] [address] [id number] [address] [place] [address], [place] [address] 16 Feb, 2013 [facility] [address] [id number] [address] [place] [address], [place] [address] Feb, [facility] [address] [id number] [address] [place] [address], [place] [address] Feb, [facility] [address] [id number] [address] [place] [address], [place] [address] Jan, [facility] [address] [id number] [address] [place] [address], [place] [address] Jan, [facility] [address] [id number] [address] [place] [address], [place] [address] Jan, [facility] [address] [id number] [address] [place] [address], [place] [address] Jan, [facility] [address] [id number] [address] [place] [address], [place] [address] Jan, [facility] [address] [id number] [address] [place] [address], [place] [address] December, [facility] [address] [id number] [address] [place] [address], [place] [address] December, [facility] [address] [id number] [address] [place] [address], [place] [address] Nov, [facility] [address] [id number] [address] [place] [address], [place] [id number] Nov, [facility] [address] [id number] [address] [place] [address], [place] [address] Oct, [facility] [address] [id number] [address] [place] [address], [place] [address] Oct, [facility] [address] [id number] [address] [place] [address], [place] [id number] 05 Oct, 2012 [facility] [address] [id number] [address] [place] [address], [place] [address] 14 Sep, 2012 [facility] [address] [id number] [address] [place] [address], [place] [id number] 24 Aug, 2012 [facility] [address] [id number] [address] [place] [address], [place] [id number] 16 Aug, 2012 [facility] [address] [id number] [address] [place] [address], [place] [address] Aug, [facility] [address] [id number] [address] [place] [address], [place] [address] Aug, [facility] [address] [id number] [address] [place] [address], [place] [address] Jul, [facility] [address] [id number] [address] [place] [address], [place] [id number] Jul, [facility] [address] [id number] [address] [place] [address], [place] [address] Jul, [facility] [address] [id number] [address] [place] [address], [place] [id number] Jul, [facility] [address] [id number] [address] [place] [address], [place] [id number] Jul, [facility] [address] [id number] [address] [place] [address], [place] [address] Jul, [facility] [address] [id number] [address] [place] [address], [place] [address] Jul, [facility] [address] [id number] [address] [place] [address], [place] [address] Jul, [facility] [address] [id number] [address] [place] [address], [place] [address] Jun, [facility] [address] [id number] [address] [place] [address], [place] [id number] Jun, [facility] [address] [id number] [address] [place] [id number] Jun, [facility] [address] [id number] [address] [place] [address], [place] [address] Jun, [facility] [address] [id number] [address] [place] [id number] Jun, [facility] [address] [id number] [address] [place] [address], [place] [address] Jun, [facility] [address] [id number] [address] [place] [address], [place] [address] May, [facility] [address] [id number] [address] [place] [address], [place] [address] May, [facility] [address] [id number] [address] [place] [address], [place] [address] May, [facility] [address] [id number] [address] [place] [address], [place] [address] May, [facility] [address] [id number] [address] [place] [address], [place] [address] Apr, [facility] [address] [id number] [address] [place] [address], [place] [address] 06 Apr, 2012 [facility] [address] [id number] [address] [place] [address], [place] [address] Mar, [facility] [address] [id number] [address] [place] [address], [place] [id number] 28 Jan, 2012 [facility] [address] [id number] [address] [place] [id number] 20 Jan, 2012 [facility] [address] [id number] [address] [place] [address], [place] [id number] 16 Jan, 2012 [facility] [address] [id number] [address] [place] [address], [place] [id number] 15 Jan, 2012 [facility] [address] [id number] [address] [place] [address], [place] [id number] 14 Jan, 2012 [facility] [address] [id number] [address] [place] [address], [place] [id number] 14 Jan, 2012 [facility] [address] [id number] [address] [place] [address], [place] [id number] Jan, [facility] [address] [id number] [address] [place] [address], [place] [address] December, [facility] [address] [id number] [address] [place] [address], [place] [address] December, [facility] [address] [id number] [address] [place] [address], [place] [id number] December, [facility] [address] [id number] [address] [place] [address], [place] [id number] December, [facility] [address] [id number] [address] [place] [address], [place] [address] Nov, [facility] [address] [id number] [address] [place] [address], [place] [id number] Nov, [facility] [address] [id number] [address] [place] [address], [place] [id number] Oct, [facility] [address] [id number] [address] [place] [address], [place] [id number] Oct, [facility] [address] [id number] [address] [place] [address], [place] [id number] Oct, [facility] [address] [id number] [address] [place] [address], [place] [id number] Sep, [facility] [address] [id number] [address] [place] [address], [place] [id number] Sep, [facility] [address] [id number] [address] [place] [address], [place] [id number] Sep, [facility] [address] [id number] [address] [place] [address], [place] [address] Aug, [facility] [address] [id number] [address] [place] [address], [place] [id number] Aug, [facility] [address] [id number] [address] [place] [address], [place] [id number] Aug, [facility] [address] [id number] [address] [place] [address], [place] [id number] Aug, [facility] [address] [id number] [address] [place] [address], [place] [id number] Aug, [facility] [address] [id number] [address] [place] [address], [place] [address] Aug, [facility] [address] [id number] [address] [place] [address], [place] [id number] Aug, [facility] [address] [id number] [address] [place] [address], [place] [id number] Jul, [facility] [address] [id number] [address] [place] [address], [place] [address] Jul, [facility] [address] [id number] [address] [place] [address], [place] [id number] 30 Jun, 2011 [facility] [address] [id number] [address] [place] [address], [place] [id number] 28 Jun, 2011 [facility] [address] [id number] [address] [place] [address], [place] [id number] 17 Jun, 2011 [facility] [address] [id number] [address] [place] [address], [place] [id number] 15 Jun, 2011 [facility] [address] [id number] [address] [place] [address], [place] [id number] 14 Jun, 2011 [facility] [address] [id number] [address] [place] [address], [place] [id number] 14 Jun, 2011 [facility] [address] [id number] [address] [place] [address], [place] [id number] 07 Jun, 2011 [facility] [address] [id number] [address] [place] [address], [place] [id number] 07 Jun, 2011 [facility] [address] [id number] [address] [place] [address], [place] [address] Jun, [facility] [address] [id number] [address] [place] [address], [place] [id number] Jun, [facility] [address] [id number] [address] [place] [address], [place] [address] May, [facility] [address] [id number] [address] [place] [address], [place] [id number] May, [facility] [address] [id number] [address] [place] [address], [place] [id number] May, [facility] [address] [id number] [address] [place] [address], [place] [id number] 24 May, 2011 [facility] [address] [id number] [address] [place] [address], [place] [address] May, [facility] [address] [id number] [address] [place] [address], [place] [id number] May, [facility] [address] [id number] [address] [place] [address], [place] [id number] Feb, [facility] [address] [id number] [address] [place] [address], [place] [id number] December, [facility] [address] [id number] [address] [place] [address], [place] [address] Jul, [facility] [address] [id number] [address] [place] [address], [place] [id number] 29 Jul, 2010 [facility] [address] [id number] [address] [place] [address], [place] [id number] Jul, [facility] [address] [id number] [address] [place] [address], [place] [address] Jul, [facility] [address] [id number] [address] [place] [address], [place] [id number] 15 Jun, 2010 [facility] [address] [id number] [address] [place] [address], [place] [address] Jul, [facility] [address] [address] [facility] [id number] [address] [place] [id number] Jul, [facility] [address] [facility] [id number] [address] [place] [id number] Jul, [facility] [address] [facility] [id number] [address] [place] [id number] Jul, [facility] [address] [facility] [id number] [address] [place] [id number] Jul, [facility] [address] [facility] [id number] [address] [place] [id number] Jul, [facility] [address] [facility] [id number] [address] [place] [id number] Jan, [facility] [address] [facility] [id number] [address] [place] [id number] 16 Sep, 2008 [facility] [address] [facility] [id number] [address] [place] [id number] Sep, IMMUNIZATIONS No Known Immunizations SOCIAL HISTORY [...]
--- OUTSIDE RECORDS SUMMARY | 2020-01-27 10:05 | XMS REPORT ---
Author Author Silvia MERCHANT Organization [facility] Address [address] [place] [address] Care Team Providers Care Hedis Manager Name Role Phone KVNG MERCHANT Unavailable PROBLEMS Type Condition ICD9-CM Code GKT10-GE Code Onset Dates Condition S tatus SNOMED Code Problem Hypertension I10 Active 9666426 3 Problem Generalized anxiety disorder F41.1 A ctive 412983916 Problem History of colon polyps Z86.010 Active 076180369 Problem History of diverticulitis Z87.19 Acti ve [id number] Problem Family history of diabetes mellitus Z83.3 Active 716216550 Problem Excessive and frequent menstruation with irregular cycle N92.1 Active 553602905 Problem Hot flashes N95.1 Active 99306318 8 Problem Gastroesophageal reflux disease with esophagitis K 21.0 Active 169573959 Problem History of ovarian cyst Z87.42 Active 85170172 Problem Diverticulitis K57.92 Active 80210 6006 Problem Dense breast tissue R92.2 Active 075668208 Problem Perimenopausal N95.1 Active 53351 9797703740 Problem Mitral valve prolapse I34.1 Active 549750462 Problem Abnormal uterine bleeding (AUB) N93.9 Active 04375069733844 Problem Tachycardia R00.0 Active 7779401 ALLERGIES No Information ENCOUNTERS Encounter Location Date Diagnosis [facility] [address] [facility] [id number] [address] [place] [phone] Nov, [facility] [address] [facility] [id number] [address] [place] [phone] Nov, [place] [id number] [facility] [id number] [address] [place] [phone] Oct, Generalized anxiety disorder F41.1 and Bereavement Z63.4 [facility] [address] [facility] [id number] [address] [place] [phone] 16 Oct, 2019 Acute non-recurrent sinusiti s, unspecified location J01.90 [facility] [address] [id number] [address] [place] [phone] 05 Oct, 2019 Acute non-recurrent frontal sinusitis J01.10 [facility] [address] [id number] [address] [place] [phone] 27 Sep, 2019 Generalized anxiety disorder F41.1 and Bereavement Z63.4 [facility] [address] [id number] [address] [place] [id number] 17 Sep, 2019 [facility] [address] [id number] [address] [place] [phone] 11 Sep, 2019 Generalized anxiety disorder F41.1 and Bereavement Z63.4 [place] [address] [id number] [address] [place] [id number] 15 Aug, 2019 Generalized anxiety disorder F41.1 and Bereavement Z63.4 [facility] [address] [id number] [address] [place] [phone] Aug, Generalized anxiety disorder F41.1 [facility] [address] [id number] [address] [place] [phone] Aug, Viral upper respiratory trac t infection J06.9 [facility] [address] [id number] [address] [place] [phone] Jul, Generalized anxiety disorder F41.1 and Bereavement Z63.4 [facility] [address] [id number] [address] [place] [phone] Jul, Acute non-recurrent frontal sinusitis J01.10 [facility] [address] [id number] [address] [place] [phone] Jul, [facility] [address] [facility] [id number] [address] [place] [phone] Jul, Sore throat J02.9 and Uvulit is K12.2 [place] [address] [id number] [address] [place] [phone] 16 Jul, 2019 Generalized anxiety disorder F41.1 [facility] [address] [id number] [place] [address] Jul, Caries K02.9 [facility] [address] [facility] [id number] [address] [place] [phone] Jun, Generalized anxiety disorder F41.1 [facility] [address] [facility] [id number] [address] [place] [phone] Jun, Generalized anxiety disorder F41.1 and Bereavement Z63.4 [facility] [address] [id number] [address] [place] [phone] May, Generalized anxiety disorder F41.[address] [facility] [address] [facility] [id number] [address] [place] [phone] May, Dysuria R30.0 [facility] [address] [facility] [id number] [address] [place] [phone] May, Generalized anxiety disorder F41.1 and Bereavement Z63.4 [facility] [address] [facility] [id number] [address] [place] [phone] May, [facility] [address] [facility] [id number] [address] [place] [phone] Apr, Generalized anxiety disorder F41.1 and Bereavement Z63.4 [facility] [address] [facility] [id number] [address] [place] [phone] Apr, Generalized anxiety disorder F41.1 [facility] [address] [id number] [address] [place] [phone] Mar, Caries K02.9 ; Dental examin ation Z01.20 ; Periodontitis K05.30 and Oral health maintenance status requiring routine preventive dental care K08.9 [facility] [address] [facility] [id number] [address] [place] [phone] Mar, Generalized anxiety disorder F41.1 [facility] [address] [facility] [id number] [address] [place] [phone] Mar, Gastrointestinal hemorrhage associated with gastroduodenitis K29.91 [facility] [address] [facility] [id number] [address] [place] [phone] Mar, Generalized anxiety disorder F41.1 and Bereavement Z63.4 [facility] [address] [id number] [address] [place] [phone] Mar, [facility] [address] [facility] [id number] [address] [place] [phone] Mar, [facility] [address] [facility] [id number] [address] [place] [phone] Mar, [facility] [address] [facility] [id number] [address] [place] [phone] Mar, Tachycardia R00.0 and Essent ial hypertension I10 [facility] [address] [facility] [id number] [address] [place] [phone] Feb, Generalized anxiety disorder F41.1 [facility] [address] [facility] [id number] [address] [place] [phone] Feb, Generalized anxiety disorder F41.1 and Bereavement Z63.4 [facility] [address] [facility] [id number] [address] [place] [phone] Feb, Generalized anxiety disorder F41.1 [facility] [address] [facility] [id number] [address] [place] [phone] Feb, Generalized anxiety disorder F41.1 and Bereavement Z63.4 [facility] [address] [facility] [id number] [address] [place] [phone] Jan, [facility] [address] [facility] [id number] [address] [place] [phone] Jan, Breast cancer screening by trenton crenshaw Z12.31 [facility] [address] [facility] [id number] [address] [place] [phone] Jan, Generalized anxiety disorder F41.1 and Bereavement Z63.4 [facility] [address] [facility] [id number] [address] [place] [phone] Jan, [facility] [address] [facility] [id number] [address] [place] [phone] December, Generalized anxiety disorder F41.1 and Bereavement Z63.4 [facility] [address] [facility] [id number] [address] [place] [phone] December, Diverticulitis K57.92 ; Dysu nick R30.0 ; Other constipation K59.09 and Lower abdominal pain R10.30 [facility] [address] [facility] [id number] [address] [place] [phone] Nov, Diverticulitis K57.92 [facility] [address] [facility] [id number] [address] [place] [phone] Nov, Generalized anxiety disorder F41.1 and Bereavement Z63.4 [facility] [address] [facility] [id number] [address] [place] [phone] Nov, Generalized anxiety disorder F41.1 and Bereavement Z63.4 [facility] [address] [facility] [id number] [address] [place] [phone] Nov, Diverticulitis K57.92 [facility] [address] [facility] [id number] [address] [place] [phone] Oct, Diverticulitis K57.92 [facility] [address] [facility] [id number] [address] [place] [phone] Oct, Diverticulitis K57.92 [facility] [address] [facility] [id number] [address] [place] [phone] Oct, Generalized anxiety disorder F41.1 [facility] [address] [facility] [id number] [address] [place] [phone] Oct, Right lower quadrant abdomin al pain R10.31 and Diverticulitis K57.92 [facility] [address] [facility] [id number] [address] [place] [phone] Sep, Generalized anxiety disorder F41.1 and Bereavement Z63.4 [facility] [address] [facility] [id number] [address] [place] [phone] Aug, [facility] [address] [facility] [id number] [address] [place] [phone] Aug, Generalized anxiety disorder F41.1 and Bereavement Z63.4 [facility] [address] [id number] [address] [place] [phone] Aug, Caries K02.9 [place] [address] [place] [id number] [address] [place] [phone] Jul, Generalized anxiety disorder F41.1 and Bereavement Z63.4 [place] [address] [place] [id number] [address] [place] [phone] Jul, Other acute gastritis withou t hemorrhage K29.00 ; Generalized anxiety disorder F41.1 ; Tachycardia R00.0 and Essential hypertension I10 [place] [address] [facility] [id number] [address] [place] [phone] Jul, Generalized anxiety disorder F41.1 and Bereavement Z63.4 [facility] [address] [facility] [id number] [address] [place] [phone] Jun, Generalized anxiety disorder F41.1 and Bereavement Z63.4 [place] [address] [facility] [id number] [address] [place] [phone] Jun, Generalized anxiety disorder F41.1 and Bereavement Z63.4 [facility] [address] [id number] [address] [place] [phone] 02 Jun, 2018 Dental examination Z01.20 [facility] [address] [facility] [id number] [address] [place] [phone] May, Generalized anxiety disorder F41.1 and Bereavement Z63.4 [facility] [address] [id number] [address] [place] [id number] 08 May, 2018 Encounter for immunization Z 23 [facility] [address] [id number] [address] [place] [phone] 08 May, 2018 Generalized anxiety disorder F41.1 and Bereavement Z63.4 [facility] [address] [id number] [address] [place] [phone] May, [facility] [address] [id number] [address] [place] [phone] 24 Apr, 2018 Generalized anxiety disorder F41.1 and Bereavement Z63.4 [facility] [address] [id number] [address] [place] [phone] 17 Apr, 2018 [facility] [address] [id number] [address] [place] [phone] Apr, Diverticulitis K57.92 [facility] [address] [id number] [address] [place] [id number] 10 Apr, 2018 Generalized anxiety disorder F41.1 and Bereavement Z63.[address] [facility] [address] [id number] [address] [place] [phone] Mar, [facility] [address] [id number] [address] [place] [phone] Mar, Diverticulitis K57.92 [facility] [address] [id number] [address] [place] [phone] Mar, Generalized anxiety disorder F41.1 and Bereavement Z63.4 [facility] [address] [facility] [id number] [address] [place] [phone] 13 Mar, 2018 Hypertension I10 [facility] [address] [id number] [address] [place] [phone] 07 Mar, 2018 Generalized anxiety disorder F41.1 and Bereavement Z63.4 [facility] [address] [id number] [address] [place] [phone] Feb, Generalized anxiety disorder F41.1 and Bereavement Z63.4 [facility] [address] [id number] [address] [place] [phone] Feb, [facility] [address] [id number] [address] [place] [phone] Feb, Generalized anxiety disorder F41.1 and Bereavement Z63.4 [facility] [address] [id number] [address] [place] [phone] Feb, Generalized anxiety disorder F41.1 and Bereavement Z63.4 [facility] [address] [id number] [address] [place] [phone] Jan, Hypertension I10 and Acute n on-recurrent maxillary sinusitis J01.00 [facility] [address] [id number] [address] [place] [phone] December, [facility] [address] [id number] [address] [place] [id number] December, Hypertension I10 [facility] [address] [id number] [address] [place] [phone] December, Generalized anxiety disorder F41.1 [facility] [address] [id number] [address] [place] [phone] Oct, Encounter for dental examina tion Z01.20 [facility] [address] [id number] [address] [place] [phone] Oct, Encounter for dental examina tion Z01.20 [facility] [address] [id number] [address] [place] [phone] Oct, Dental examination Z01.20 [facility] [address] [id number] [address] [place] [id number] Oct, Generalized anxiety disorder F41.1 [facility] [address] [id number] [place] [address] 30 Aug, 2017 Dental examination Z01.20 [facility] [address] [id number] [address] [place] [phone] 29 Aug, 2017 Generalized anxiety disorder F41.1 [facility] [address] [id number] [address] [place] [phone] Aug, [facility] [address] [id number] [address] [place] [phone] 09 Aug, 2017 Encounter for dental examina tion Z01.20 [facility] [address] [id number] [address] [place] [phone] 08 Aug, 2017 Subacute maxillary sinusitis J01.00 [facility] [address] [id number] [address] [place] [phone] 22 Jul, 2017 Dental examination Z01.20 [facility] [address] [id number] [address] [place] [id number] 19 Jul, 2017 Generalized anxiety disorder F41.1 [facility] [address] [id number] [address] [place] [id number] 11 Jul, 2017 Diverticulitis K57.92 [facility] [address] [id number] [address] [place] [id number] 28 Jun, 2017 Encounter for immunization Z 23 [facility] [address] [id number] [place] [address] 22 Jun, 2017 Dental examination Z01.20 [facility] [address] [id number] [address] [place] [phone] 14 Jun, 2017 Generalized anxiety disorder F41.1 [facility] [address] [id number] [address] [address] 07 Jun, 2017 Dental examination Z01.20 [facility] [address] [id number] [address] [place] [phone] May, [facility] [address] [id number] [address] [place] [id number] May, Dental examination Z01.20 [facility] [address] [id number] [address] [place] [id number] May, Dental examination Z01.20 [facility] [address] [id number] [address] [place] [phone] May, Dental examination Z01.20 [facility] [address] [id number] [address] [place] [phone] May, [facility] [address] [id number] [address] [place] [phone] May, Generalized anxiety disorder F41.1 [facility] [address] [id number] [address] [place] [phone] May, Localized edema R60.0 ; Yeas t vaginitis B37.3 and Gastroesophageal reflux disease with esophagitis K21.0 [facility] [address] [id number] [address] [place] [address] [id number] Apr, Dental examination Z01.20 [facility] [address] [id number] [address] [place] [phone] Apr, Dental examination Z01.20 [facility] [address] [id number] [address] [place] [phone] 05 Apr, 2017 Dental examination Z01.20 [facility] [address] [id number] [address] [place] [phone] Mar, Dyspepsia R10.13 [facility] [address] [id number] [address] [place] [phone] Mar, Generalized anxiety disorder F41.1 [facility] [address] [id number] [address] [place] [phone] Mar, Encounter for dental examina tion Z01.20 [facility] [address] [id number] [address] [place] [address] [id number] Mar, [facility] [address] [id number] [address] [place] [id number] Mar, Dental examination Z01.20 [facility] [address] [id number] [address] [place] [phone] Feb, Hypertension I10 and Tachyca rdia R00.0 [facility] [address] [id number] [address] [address] Feb, [facility] [address] [id number] [address] [place] [phone] Feb, Generalized anxiety disorder F41.1 [facility] [address] [id number] [address] [place] [address] [id number] Feb, Dental examination Z01.20 [facility] [address] [id number] [address] [place] [id number] Jan, Generalized anxiety disorder F41.1 [facility] [address] [id number] [address] [place] [phone] December, Generalized anxiety disorder F41.1 [facility] [address] [id number] [address] [place] [address] [id number] December, Encounter for dental examina tion Z01.20 [facility] [address] [id number] [address] [place] [phone] Nov, [facility] [address] [id number] [address] [place] [phone] Nov, [facility] [address] [id number] [address] [place] [phone] Nov, Generalized anxiety disorder F41.1 [facility] [address] [id number] [address] [place] [phone] Oct, [facility] [address] [id number] [address] [place] [id number] 29 Oct, 2016 Dental examination Z01.20 [place] [address] [phone] 27 Oct, 2016 Vaginal dryness N89.8 [place] [address] [place] [id number] [address] [place] [phone] Oct, Pseudoseizures F44.5 [place] [address] [phone] Oct, Generalized anxiety disorder F41.1 [place] [address] [phone] Sep, Abnormal uterine bleeding (A UB) N93.9 ; Vaginal dryness N89.8 and Screening breast examination Z12.39 [place] [address] [phone] Sep, Dental examination Z01.20 [place] [address] [phone] Sep, Generalized anxiety disorder F41.1 [place] [address] [address] 06 Sep, 2016 Unspecified ovarian cyst, ri ght side N83.201 ; Unspecified ovarian cyst, left side N83.202 ; Yeast infection of the vagina B37.3 ; Mitral valve prolapse I34.1 and Hypertension I10 [place] [id number] [place] [phone] Aug, Generalized anxiety disorder F41.1 [place] [address] [address] [place] [id number] [place] [id number] Jul, [place] [address] [address] Jul, Generalized anxiety disorder F41.1 [place] [address] [address] Jun, Generalized anxiety disorder F41.1 [facility] [address] [facility] [id number] [address] [place] [phone] 28 May, 2016 Encounter for immunization Z 23 [facility] [address] [id number] [address] [place] [phone] 17 May, 2016 Generalized anxiety disorder F41.1 and Depressive disorder, not elsewhere classified F32.9 [facility] [address] [id number] [address] [place] [id number] 28 Apr, 2016 Hypertension I10 [facility] [address] [id number] [address] [place] [id number] 22 Apr, 2016 Cervicalgia M54.2 [facility] [address] [id number] [address] [place] [id number] 12 Apr, 2016 Cervicalgia M54.2 [facility] [address] [facility] [id number] [address] [place] [phone] Mar, Generalized anxiety disorder F41.1 and Depressive disorder, not elsewhere classified F32.9 [facility] [address] [id number] [address] [place] [address] [id number] 14 Feb, 2016 Visit for dental examination Z01.20 [facility] [address] [facility] [id number] [address] [place] [phone] 11 Feb, 2016 Pseudoseizures F44.5 ; Migra ine without status migrainosus, not intractable, unspecified migraine type G43.909 and Essential hypertension I10 [facility] [address] [id number] [address] [place] [address] [id number] 06 Feb, 2016 Dental examination Z01.20 [facility] [address] [id number] [address] [place] [id number] Feb, Generalized anxiety disorder F41.1 and Depressive disorder, not elsewhere classified F32.9 [facility] [address] [id number] [address] [place] [address] Jan, Tachycardia R00.0 [facility] [address] [id number] [address] [place] [address] December, Eustachian tube dysfunction, bilateral H69.83 [place] [id number] [facility] [id number] [address] [place] [address] December, Generalized anxiety disorder F41.1 and Depressive disorder, not elsewhere classified F32.9 [facility] [address] [facility] [id number] [address] [place] [address] Nov, [place] [address] [place] [id number] [address] [place] [address] Nov, [place] [address] [facility] [id number] [address] [place] [phone] Nov, Hypertension I10 ; Onychomyc osis B35.1 [...] and Complex cyst of left ovary N83.29 [facility] [address] [facility] [id number] [address] [place] [id number] 14 Nov, 2015 Sinusitis J32.9 [facility] [address] [facility] [id number] [address] [place] [address] Oct, Complex cyst of left ovary N 83.29 [facility] [address] [facility] [id number] [address] [place] [address] Oct, Onychomycosis B35.1 [facility] [address] [id number] [address] [place] [address] [id number] Oct, Dental examination Z01.20 [facility] [address] [facility] [id number] [address] [place] [address] Oct, Well woman exam Z01.419 ; En [...] R92.2 and History of colon polyps Z86.010 [place] [address] [facility] [id number] [address] [place] [phone] 03 Oct, 2015 Generalized anxiety disorder F41.1 and Depressive disorder, not elsewhere classified F32.9 [place] [address] [place] [id number] [address] [place] [address] 22 Sep, 2015 Hypertension I10 and Onychom ycosis B35.1 [place] [address] [place] [id number] [address] [place] [id number] Sep, Skin tags, multiple acquired L91.8 [place] [address] [address] [facility] [id number] [address] [place] [phone] Aug, [place] [address] [place] [id number] [address] [place] [address] Aug, [place] [address] [place] [id number] [address] [place] [address] Aug, [place] [address] [facility] [id number] [address] [place] [address] Aug, Generalized anxiety disorder F41.1 and Depressive disorder, not elsewhere classified F32.9 [place] [address] [facility] [id number] [address] [place] [address] Jul, Skin lesion L98.9 [place] [address] [facility] [id number] [address] [place] [id number] Jun, Generalized anxiety disorder F41.1 and Depressive disorder, not elsewhere classified F32.9 [place] [address] [address] [place] [id number] [address] [place] [address] Jun, [facility] [address] [id number] [address] [place] [address] Jun, Generalized anxiety disorder F41.1 [facility] [address] [id number] [address] [place] [address] May, Encounter for immunization Z 23 and Right shoulder pain M25.511 [facility] [address] [id number] [address] [place] [address] Apr, [facility] [address] [id number] [address] [place] [id number] 14 Apr, 2015 Generalized anxiety disorder 300.02 and Depressive disorder, not elsewhere classified 311 [facility] [address] [id number] [address] [place] [address] [id number] Mar, Dental examination V72.2 [facility] [address] [id number] [address] [place] [id number] Mar, Generalized anxiety disorder 300.02 and Depressive disorder, not elsewhere classified 311 [facility] [address] [id number] [address] [place] [address] Mar, Depression, major, recurrent , 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.35 and 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 [facility] [address] [id number] [address] [place] [address] Feb, Generalized anxiety disorder 300.02 and Depressive disorder, not elsewhere classified 311 [facility] [address] [id number] [address] [place] [address] [id number] Feb, Dental examination V72.2 [facility] [address] [id number] [address] [place] [id number] Jan, Generalized anxiety disorder 300.02 and Depressive disorder, not elsewhere classified 311 [facility] [address] [id number] [address] [place] [id number] Jan, [facility] [address] [id number] [address] [place] [phone] December, Generalized anxiety disorder 300.02 and Depressive disorder, not elsewhere classified 311 [facility] [address] [facility] [id number] [address] [place] [phone] December, Major depressive disorder, r ecurrent, unspecified 296.30 and Panic disorder with agoraphobia 300.21 [facility] [address] [facility] [id number] [address] [place] [phone] 14 Nov, 2014 [facility] [address] [facility] [id number] [address] [place] [phone] Nov, [facility] [address] [facility] [id number] [address] [place] [phone] Oct, [facility] [address] [facility] [id number] [address] [place] [phone] Oct, [facility] [address] [facility] [id number] [address] [place] [phone] Oct, [facility] [address] [facility] [id number] [address] [place] [phone] Oct, [facility] [address] [facility] [id number] [address] [place] [id number] Sep, [facility] [address] [facility] [id number] [address] [place] [phone] Sep, [facility] [address] [facility] [id number] [address] [place] [phone] Sep, [facility] [address] [facility] [id number] [address] [place] [phone] Sep, [facility] [address] [facility] [id number] [address] [place] [id number] Sep, [facility] [address] [facility] [id number] [address] [place] [id number] Sep, [facility] [address] [facility] [id number] [address] [place] [phone] Sep, 2014 [facility] [address] [id number] [address] [place] [address], [place] [address] Sep, 2014 [facility] [address] [id number] [address] [place] [address], [place] [address] Sep, 2014 [facility] [address] [id number] [address] [place] [address], [place] [address] Sep, [facility] [address] [id number] [address] [place] [address], [place] [address] Aug, [facility] [address] [id number] [address] [place] [address], [place] [address] Aug, [facility] [address] [id number] [address] [place] [address], [place] [address] Jul, [facility] [address] [id number] [address] [place] [address], [place] [address] Jul, [facility] [address] [id number] [address] [place] [address], [place] [address] Jul, [facility] [address] [id number] [address] [place] [address], [place] [address] Jul, [facility] [address] [id number] [address] [place] [address], [place] [address] Jul, [facility] [address] [id number] [address] [place] [address], [place] [address] Jul, [facility] [address] [id number] [address] [place] [address], [place] [address] 05 Jul, 2014 [facility] [address] [id number] [address] [place] [address], [place] [address] 05 Jul, 2014 [facility] [address] [id number] [address] [place] [address], [place] [address] 04 Jul, 2014 [facility] [address] [id number] [address] [place] [address], [place] [address] Jul, [facility] [address] [id number] [address] [place] [address], [place] [address] Jul, [facility] [address] [id number] [address] [place] [address], [place] [address] Jul, [facility] [address] [id number] [address] [place] [address], [place] [address] Jun, [facility] [address] [id number] [address] [place] [address], [place] [address] Jun, [facility] [address] [id number] [address] [place] [address], [place] [address] May, [facility] [address] [id number] [address] [place] [address], [place] [address] May, [facility] [address] [id number] [address] [place] [address], [place] [address] May, [facility] [address] [id number] [address] [place] [address], [place] [address] May, [facility] [address] [id number] [address] [place] [address], [place] [address] May, [facility] [address] [id number] [address] [place] [address], [place] [address] May, [facility] [address] [id number] [address] [place] [address], [place] [address] May, [facility] [address] [id number] [address] [place] [address], [place] [address] May, [facility] [address] [id number] [address] [place] [address], [place] [address] May, [facility] [address] [id number] [address] [place] [address], [place] [address] May, [facility] [address] [id number] [address] [place] [address], [place] [address] May, [facility] [address] [id number] [address] [place] [address], [place] [address] May, [facility] [address] [id number] [address] [place] [address], [place] [address] Apr, [facility] [address] [id number] [address] [place] [address], [place] [address] Apr, [facility] [address] [id number] [address] [place] [address], [place] [address] Apr, [facility] [address] [id number] [address] [place] [address], [place] [address] Apr, [facility] [address] [id number] [address] [place] [address], [place] [address] Apr, [facility] [address] [id number] [address] [place] [address], [place] [address] Apr, [facility] [address] [id number] [address] [place] [address], [place] [address] Feb, [facility] [address] [id number] [address] [place] [address], [place] [address] Feb, [facility] [address] [id number] [address] [place] [address], [place] [address] Feb, [facility] [address] [id number] [address] [place] [address], [place] [address] Feb, [facility] [address] [id number] [address] [place] [address], [place] [address] Feb, [facility] [address] [id number] [address] [place] [address], [place] [address] Feb, [facility] [address] [id number] [address] [place] [address], [place] [address] Jan, [facility] [address] [id number] [address] [place] [address], [place] [address] Jan, [facility] [address] [id number] [address] [place] [address], [place] [address] Jan, [facility] [address] [id number] [address] [place] [address], [place] [address] Jan, [facility] [address] [id number] [address] [place] [address], [place] [address] Jan, [facility] [address] [id number] [address] [place] [address], [place] [address] Jan, [facility] [address] [id number] [address] [place] [address], [place] [address] Jan, [facility] [address] [id number] [address] [place] [address], [place] [address] Jan, [facility] [address] [id number] [address] [place] [address], [place] [address] December, [facility] [address] [id number] [address] [place] [address], [place] [address] December, [facility] [address] [id number] [address] [place] [address], [place] [address] December, [facility] [address] [id number] [address] [place] [address], [place] [address] December, [facility] [address] [id number] [address] [place] [address], [place] [address] Nov, [facility] [address] [id number] [address] [place] [address], [place] [address] Nov, [facility] [address] [id number] [address] [place] [address], [place] [address] Nov, [facility] [address] [id number] [address] [place] [address], [place] [address] Nov, [facility] [address] [id number] [address] [place] [address], [place] [address] Nov, [facility] [address] [id number] [address] [place] [address], [place] [address] Nov, [facility] [address] [id number] [address] [place] [address], [place] [address] Nov, [facility] [address] [id number] [address] [place] [address], [place] [address] Nov, [facility] [address] [id number] [address] [place] [address], [place] [address] Oct, [facility] [address] [id number] [address] [place] [address], [place] [address] Oct, [facility] [address] [id number] [address] [place] [address], [place] [address] Sep, [facility] [address] [id number] [address] [place] [address], [place] [address] Sep, [facility] [address] [id number] [address] [place] [address], [place] [id number] Sep, [facility] [address] [id number] [address] [place] [address], [place] [address] Sep, [facility] [address] [id number] [address] [place] [address], [place] [address] Sep, [facility] [address] [id number] [address] [place] [address], [place] [address] Sep, [facility] [address] [id number] [address] [place] [address], [place] [address] Aug, [facility] [address] [id number] [address] [place] [address], [place] [address] Aug, [facility] [address] [id number] [address] [place] [address], [place] [address] Aug, [facility] [address] [id number] [address] [place] [address], [place] [address] Aug, [facility] [address] [id number] [address] [place] [address], [place] [address] Jul, [facility] [address] [id number] [address] [place] [address], [place] [address] Jul, [facility] [address] [id number] [address] [place] [address], [place] [address] Jul, [facility] [address] [id number] [address] [place] [address], [place] [address] Jul, [facility] [address] [id number] [address] [place] [address], [place] [address] Jun, [facility] [address] [id number] [address] [place] [address], [place] [address] Jun, [facility] [address] [id number] [address] [place] [address], [place] [address] May, [facility] [address] [id number] [address] [place] [address], [place] [address] May, [facility] [address] [id number] [address] [place] [address], [place] [address] May, [facility] [address] [id number] [address] [place] [address], [place] [address] May, [facility] [address] [id number] [address] [place] [address], [place] [address] May, [facility] [address] [id number] [address] [place] [address], [place] [address] Apr, [facility] [address] [id number] [address] [place] [address], [place] [address] Apr, [facility] [address] [id number] [address] [place] [address], [place] [address] Mar, [facility] [address] [id number] [address] [place] [address], [place] [address] Mar, [facility] [address] [id number] [address] [place] [address], [place] [address] Mar, [facility] [address] [id number] [address] [place] [address], [place] [address] Mar, [facility] [address] [id number] [address] [place] [address], [place] [address] Feb, [facility] [address] [id number] [address] [place] [address], [place] [address] 17 Feb, 2013 [facility] [address] [id number] [address] [place] [address], [place] [address] 16 Feb, 2013 [facility] [address] [id number] [address] [place] [address], [place] [address] Feb, [facility] [address] [id number] [address] [place] [address], [place] [address] Feb, [facility] [address] [id number] [address] [place] [address], [place] [address] Jan, [facility] [address] [id number] [address] [place] [address], [place] [address] Jan, [facility] [address] [id number] [address] [place] [address], [place] [address] Jan, [facility] [address] [id number] [address] [place] [address], [place] [address] Jan, [facility] [address] [id number] [address] [place] [address], [place] [address] Jan, [facility] [address] [id number] [address] [place] [address], [place] [address] December, [facility] [address] [id number] [address] [place] [address], [place] [address] December, [facility] [address] [id number] [address] [place] [address], [place] [address] Nov, [facility] [address] [id number] [address] [place] [address], [place] [address] Nov, [facility] [address] [id number] [address] [place] [address], [place] [address] Oct, [facility] [address] [id number] [address] [place] [address], [place] [address] Oct, [facility] [address] [id number] [address] [place] [address], [place] [address] 05 Oct, 2012 [facility] [address] [id number] [address] [place] [address], [place] [address] 14 Sep, 2012 [facility] [address] [id number] [address] [place] [address], [place] [address] 24 Aug, 2012 [facility] [address] [id number] [address] [place] [address], [place] [address] 16 Aug, 2012 [facility] [address] [id number] [address] [place] [address], [place] [address] Aug, [facility] [address] [id number] [address] [place] [address], [place] [address] Aug, [facility] [address] [id number] [address] [place] [address], [place] [address] Jul, [facility] [address] [id number] [address] [place] [address], [place] [address] Jul, [facility] [address] [id number] [address] [place] [address], [place] [address] Jul, [facility] [address] [id number] [address] [place] [address], [place] [address] Jul, [facility] [address] [id number] [address] [place] [address], [place] [address] Jul, [facility] [address] [id number] [address] [place] [address], [place] [address] Jul, [facility] [address] [id number] [address] [place] [address], [place] [address] Jul, [facility] [address] [id number] [address] [place] [address], [place] [address] Jul, [facility] [address] [id number] [address] [place] [address], [place] [address] Jun, [facility] [address] [id number] [address] [place] [address], [place] [address] Jun, [facility] [address] [id number] [address] [place] [address] Jun, [facility] [address] [id number] [address] [place] [address], [place] [address] Jun, [facility] [address] [id number] [address] [place] [address] Jun, [facility] [address] [id number] [address] [place] [address], [place] [address] Jun, [facility] [address] [id number] [address] [place] [address], [place] [address] May, [facility] [address] [id number] [address] [place] [address], [place] [address] May, [facility] [address] [id number] [address] [place] [address], [place] [address] May, [facility] [address] [id number] [address] [place] [address], [place] [address] May, [facility] [address] [id number] [address] [place] [address], [place] [address] Apr, [facility] [address] [id number] [address] [place] [address], [place] [address] 06 Apr, 2012 [facility] [address] [id number] [address] [place] [address], [place] [address] Mar, [facility] [address] [id number] [address] [place] [address], [place] [address] 28 Jan, 2012 [facility] [address] [id number] [address] [place] [id number] 20 Jan, 2012 [facility] [address] [id number] [address] [place] [address], [place] [address] 16 Jan, 2012 [facility] [address] [id number] [address] [place] [address], [place] [address] 15 Jan, 2012 [facility] [address] [id number] [address] [place] [address], [place] [address] 14 Jan, 2012 [facility] [address] [id number] [address] [place] [address], [place] [address] 14 Jan, 2012 [facility] [address] [id number] [address] [place] [address], [place] [address] Jan, [facility] [address] [id number] [address] [place] [address], [place] [address] December, [facility] [address] [id number] [address] [place] [address], [place] [address] December, [facility] [address] [id number] [address] [place] [address], [place] [address] December, [facility] [address] [id number] [address] [place] [address], [place] [address] December, [facility] [address] [id number] [address] [place] [address], [place] [address] Nov, [facility] [address] [id number] [address] [place] [address], [place] [address] Nov, [facility] [address] [id number] [address] [place] [address], [place] [address] Oct, [facility] [address] [id number] [address] [place] [address], [place] [address] Oct, [facility] [address] [id number] [address] [place] [address], [place] [address] Oct, [facility] [address] [id number] [address] [place] [address], [place] [address] Sep, [facility] [address] [id number] [address] [place] [address], [place] [address] Sep, [facility] [address] [id number] [address] [place] [address], [place] [address] Sep, [facility] [address] [id number] [address] [place] [address], [place] [address] Aug, [facility] [address] [id number] [address] [place] [address], [place] [address] Aug, [facility] [address] [id number] [address] [place] [address], [place] [address] Aug, [facility] [address] [id number] [address] [place] [address], [place] [address] Aug, [facility] [address] [id number] [address] [place] [address], [place] [address] Aug, [facility] [address] [id number] [address] [place] [address], [place] [address] Aug, [facility] [address] [id number] [address] [place] [address], [place] [address] Aug, [facility] [address] [id number] [address] [place] [address], [place] [address] Jul, [facility] [address] [id number] [address] [place] [address], [place] [address] Jul, [facility] [address] [id number] [address] [place] [address], [place] [address] 30 Jun, 2011 [facility] [address] [id number] [address] [place] [address], [place] [address] 28 Jun, 2011 [facility] [address] [id number] [address] [place] [address], [place] [address] 17 Jun, 2011 [facility] [address] [id number] [address] [place] [address], [place] [address] 15 Jun, 2011 [facility] [address] [id number] [address] [place] [address], [place] [address] 14 Jun, 2011 [facility] [address] [id number] [address] [place] [address], [place] [address] 14 Jun, 2011 [facility] [address] [id number] [address] [place] [address], [place] [address] 07 Jun, 2011 [facility] [address] [id number] [address] [place] [address], [place] [address] 07 Jun, 2011 [facility] [address] [id number] [address] [place] [address], [place] [address] Jun, [facility] [address] [id number] [address] [place] [address], [place] [address] Jun, [facility] [address] [id number] [address] [place] [address], [place] [address] May, [facility] [address] [id number] [address] [place] [address], [place] [address] May, [facility] [address] [id number] [address] [place] [address], [place] [address] May, [facility] [address] [id number] [address] [place] [address], [place] [address] 24 May, 2011 [facility] [address] [id number] [address] [place] [address], [place] [address] May, [facility] [address] [id number] [address] [place] [address], [place] [address] May, [facility] [address] [id number] [address] [place] [address], [place] [address] Feb, [facility] [address] [id number] [address] [place] [address], [place] [address] December, [facility] [address] [id number] [address] [place] [address], [place] [address] Jul, [facility] [address] [id number] [address] [place] [address], [place] [address] 29 Jul, 2010 [facility] [address] [id number] [address] [place] [address], [place] [address] Jul, [facility] [address] [id number] [address] [place] [address], [place] [address] Jul, [facility] [address] [id number] [address] [place] [address], [place] [address] 15 Jun, 2010 [facility] [address] [id number] [address] [place] [address], [place] [address] Jul, [facility] [address] [id number] [address] [place] [address] Jul, [facility] [address] [id number] [address] [place] [id number] Jul, [facility] [address] [id number] [address] [place] [id number] Jul, [facility] [address] [id number] [address] [place] [address] Jul, [facility] [address] [facility] [id number] [address] [place] [id number] Jul, [facility] [address] [facility] [id number] [address] [place] [id number] Jan, [facility] [address] [facility] [id number] [address] [place] [id number] 16 Sep, 2008 [facility] [address] [facility] [id number] [address] [place] [id number] Sep, IMMUNIZATIONS No Known Immunizations SOCIAL HISTORY Never Assessed REASON FOR VISIT PLAN OF CARE VITAL SIGNS MEDICATIONS Unknown Medications RESULTS No Results PROCEDURES Procedure Date Ordered Result Body Site PSYTX PT&/FAMILY 45 MINUTES May 11, 2013 INSTRUCTIONS MEDICATIONS ADMINISTERED No Known Medications MEDICAL [...]
--- OUTSIDE RECORDS SUMMARY | 2020-01-27 10:05 | XMS REPORT ---
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 Name Role Phone LETTY WILKINS Unavailable PROBLEMS Type Condition ICD9-CM Code XUC19-IQ Code Onset Dates Condition S tatus SNOMED Code Problem Hypertension I10 Active 9453633 3 Problem Generalized anxiety disorder F41.1 A ctive 853331372 Problem History of colon polyps Z86.010 Active 355747257 Problem History of diverticulitis Z87.19 Acti ve 463028918048841 Problem Family history of diabetes mellitus Z83.3 Active 151010026 Problem Excessive and frequent menstruation with irregular cycle N92.1 Active 778617263 Problem Hot flashes N95.1 Active 46545729 8 Problem Gastroesophageal reflux disease with esophagitis K 21.0 Active 925167519 Problem History of ovarian cyst Z87.42 Active 41667339 Problem Diverticulitis K57.92 Active 73609 6006 Problem Dense breast tissue R92.2 Active 859348159 Problem Perimenopausal N95.1 Active 79556 2368330370 Problem Mitral valve prolapse I34.1 Active 120040048 Problem Abnormal uterine bleeding (AUB) N93.9 Active 35183696300255 Problem Tachycardia R00.0 Active 9213777 ALLERGIES No Information ENCOUNTERS Encounter Location Date Diagnosis [facility] [address] [facility] [id number] [address] [place] [address] Nov, [facility] [address] [facility] [id number] [address] [place] [address] Nov, [facility] [address] [facility] [id number] [address] [place] [address] Oct, Generalized anxiety disorder F41.1 and Bereavement Z63.4 [facility] [address] [facility] [id number] [address] [place] [address] 16 Oct, 2019 Acute non-recurrent sinusiti s, unspecified location J01.90 [facility] [address] [id number] [address] [place] [address] 05 Oct, 2019 Acute non-recurrent frontal sinusitis J01.10 [facility] [address] [id number] [address] [place] [id number] 27 Sep, 2019 Generalized anxiety disorder F41.1 and Bereavement Z63.4 [facility] [address] [id number] [address] [place] [address] 17 Sep, 2019 [facility] [address] [id number] [address] [place] [id number] 11 Sep, 2019 Generalized anxiety disorder F41.1 and Bereavement Z63.4 [facility] [address] [id number] [address] [place] [id number] 15 Aug, 2019 Generalized anxiety disorder F41.1 and Bereavement Z63.4 [facility] [address] [id number] [address] [place] [address] Aug, Generalized anxiety disorder F41.1 [facility] [address] [id number] [address] [place] [address] 06 Aug, 2019 Viral upper respiratory trac t infection J06.9 [facility] [address] [id number] [address] [place] [address] Jul, Generalized anxiety disorder F41.1 and Bereavement Z63.4 [facility] [address] [id number] [address] [place] [address] Jul, Acute non-recurrent frontal sinusitis J01.10 [facility] [address] [id number] [address] [place] [address] Jul, [facility] [address] [facility] [id number] [address] [place] [phone] Jul, Sore throat J02.9 and Uvulit is K12.2 [facility] [address] [id number] [address] [place] [id number] 16 Jul, 2019 Generalized anxiety disorder F41.1 [facility] [address] [id number] [address] [address] Jul, Caries K02.9 [facility] [address] [id number] [address] [place] [phone] Jun, Generalized anxiety disorder F41.1 [facility] [address] [facility] [id number] [address] [place] [address] Jun, Generalized anxiety disorder F41.1 and Bereavement Z63.4 [facility] [address] [facility] [id number] [address] [place] [phone] May, Generalized anxiety disorder F41.1 [facility] [address] [facility] [id number] [address] [place] [phone] May, Dysuria R30.0 [facility] [address] [facility] [id number] [address] [place] [address] May, Generalized anxiety disorder F41.1 and Bereavement Z63.4 [facility] [address] [facility] [id number] [address] [place] [address] May, [facility] [address] [facility] [id number] [address] [place] [address] Apr, Generalized anxiety disorder F41.1 and Bereavement Z63.4 [facility] [address] [facility] [id number] [address] [place] [phone] 24 Apr, 2019 Generalized anxiety disorder F41.1 [facility] [address] [id number] [address] [address] Mar, Caries K02.9 ; Dental examin ation Z01.20 ; Periodontitis K05.30 and Oral health maintenance status requiring routine preventive dental care K08.9 [facility] [address] [facility] [id number] [address] [place] [address] Mar, Generalized anxiety disorder F41.1 [facility] [address] [id number] [address] [place] [address] Mar, Gastrointestinal hemorrhage associated with gastroduodenitis K29.91 [facility] [address] [id number] [address] [place] [address] Mar, Generalized anxiety disorder F41.1 and Bereavement Z63.4 [facility] [address] [id number] [address] [place] [address] Mar, [facility] [address] [id number] [address] [place] [phone] Mar, [facility] [address] [facility] [id number] [address] [place] [address] Mar, [facility] [address] [facility] [id number] [address] [place] [address] Mar, Tachycardia R00.0 and Essent ial hypertension I10 [facility] [address] [id number] [address] [place] [address] Feb, Generalized anxiety disorder F41.1 [facility] [address] [facility] [id number] [address] [place] [address] Feb, Generalized anxiety disorder F41.1 and Bereavement Z63.4 [facility] [address] [facility] [id number] [address] [place] [address] Feb, Generalized anxiety disorder F41.1 [facility] [address] [id number] [address] [place] [address] Feb, Generalized anxiety disorder F41.1 and Bereavement Z63.4 [facility] [address] [facility] [id number] [address] [place] [address] Jan, [facility] [address] [facility] [id number] [address] [place] [address] Jan, Breast cancer screening by trenton crenshaw Z12.31 [facility] [address] [id number] [address] [place] [id number] 13 Jan, 2019 Generalized anxiety disorder F41.1 and Bereavement Z63.4 [facility] [address] [id number] [address] [place] [address] Jan, [facility] [address] [facility] [id number] [address] [place] [address] December, Generalized anxiety disorder F41.1 and Bereavement Z63.4 [facility] [address] [facility] [id number] [address] [place] [address] December, Diverticulitis K57.92 ; Dysu nick R30.0 ; Other constipation K59.09 and Lower abdominal pain R10.30 [facility] [address] [facility] [id number] [address] [place] [address] Nov, Diverticulitis K57.92 [facility] [address] [id number] [address] [place] [address] Nov, Generalized anxiety disorder F41.1 and Bereavement Z63.4 [facility] [address] [facility] [id number] [address] [place] [address] Nov, Generalized anxiety disorder F41.1 and Bereavement Z63.4 [facility] [address] [facility] [id number] [address] [place] [address] Nov, Diverticulitis K57.92 [facility] [address] [facility] [id number] [address] [place] [address] Oct, Diverticulitis K57.92 [facility] [address] [id number] [address] [place] [address] Oct, Diverticulitis K57.92 [facility] [address] [facility] [id number] [address] [place] [address] Oct, Generalized anxiety disorder F41.1 [facility] [address] [facility] [id number] [address] [place] [address] Oct, Right lower quadrant abdomin al pain R10.31 and Diverticulitis K57.92 [facility] [address] [facility] [id number] [address] [place] [address] Sep, Generalized anxiety disorder F41.1 and Bereavement Z63.4 [facility] [address] [place] [id number] [address] [place] [address] Aug, [facility] [address] [place] [id number] [address] [place] [address] Aug, Generalized anxiety disorder F41.1 and Bereavement Z63.4 [facility] [address] [id number] [address] [address] Aug, Caries K02.9 [place] [address] [place] [id number] [address] [place] [address] Jul, Generalized anxiety disorder F41.1 and Bereavement Z63.4 [place] [id number] [place] [id number] [address] [place] [address] Jul, Other acute gastritis withou t hemorrhage K29.00 ; Generalized anxiety disorder F41.1 ; Tachycardia R00.0 and Essential hypertension I10 [place] [id number] [facility] [id number] [address] [place] [address] Jul, Generalized anxiety disorder F41.1 and Bereavement Z63.4 [facility] [address] [facility] [id number] [address] [place] [address] Jun, Generalized anxiety disorder F41.1 and Bereavement Z63.4 [facility] [address] [facility] [id number] [address] [place] [address] Jun, Generalized anxiety disorder F41.1 and Bereavement Z63.4 [facility] [address] [id number] [address] [address] 02 Jun, 2018 Dental examination Z01.20 [facility] [address] [id number] [address] [place] [address] May, Generalized anxiety disorder F41.1 and Bereavement Z63.4 [facility] [address] [id number] [address] [place] [phone] 08 May, 2018 Encounter for immunization Z 23 [facility] [address] [id number] [address] [place] [phone] 08 May, 2018 Generalized anxiety disorder F41.1 and Bereavement Z63.4 [facility] [address] [id number] [address] [place] [address] May, [facility] [address] [id number] [address] [place] [address] 24 Apr, 2018 Generalized anxiety disorder F41.1 and Bereavement Z63.4 [facility] [address] [id number] [address] [place] [address] 17 Apr, 2018 [facility] [address] [id number] [address] [place] [id number] 13 Apr, 2018 Diverticulitis K57.92 [facility] [address] [id number] [address] [place] [address] 10 Apr, 2018 Generalized anxiety disorder F41.1 and Bereavement Z63.4 [facility] [address] [id number] [address] [place] [address] Mar, [facility] [address] [id number] [address] [place] [address] Mar, Diverticulitis K57.92 [facility] [address] [id number] [address] [place] [address] Mar, Generalized anxiety disorder F41.1 and Bereavement Z63.4 [facility] [address] [id number] [address] [place] [id number] 13 Mar, 2018 Hypertension I10 [facility] [address] [id number] [address] [place] [address] Mar, Generalized anxiety disorder F41.1 and Bereavement Z63.4 [facility] [address] [id number] [address] [place] [address] Feb, Generalized anxiety disorder F41.1 and Bereavement Z63.4 [facility] [address] [id number] [address] [place] [address] Feb, [facility] [address] [id number] [address] [place] [id number] Feb, Generalized anxiety disorder F41.1 and Bereavement Z63.4 [facility] [address] [id number] [address] [place] [address] Feb, Generalized anxiety disorder F41.1 and Bereavement Z63.4 [facility] [address] [id number] [address] [place] [address] Jan, Hypertension I10 and Acute n on-recurrent maxillary sinusitis J01.00 [facility] [address] [id number] [address] [place] [address] December, [facility] [address] [id number] [address] [place] [phone] December, Hypertension I10 [facility] [address] [id number] [address] [place] [address] December, Generalized anxiety disorder F41.1 [facility] [address] [id number] [address] [place] [address] Oct, Encounter for dental examina tion Z01.20 [facility] [address] [id number] [address] [place] [address] 06 Oct, 2017 Encounter for dental examina tion Z01.20 [facility] [address] [id number] [address] [address] 02 Oct, 2017 Dental examination Z01.20 [facility] [address] [id number] [address] [place] [address] Oct, Generalized anxiety disorder F41.1 [facility] [address] [id number] [address] [place] [address] 30 Aug, 2017 Dental examination Z01.20 [facility] [address] [id number] [address] [place] [address] Aug, Generalized anxiety disorder F41.1 [facility] [address] [id number] [address] [place] [address] Aug, [facility] [address] [id number] [address] [place] [address] 09 Aug, 2017 Encounter for dental examina tion Z01.20 [facility] [address] [id number] [address] [place] [address] 08 Aug, 2017 Subacute maxillary sinusitis J01.00 [facility] [address] [id number] [address] [place] [address] 22 Jul, 2017 Dental examination Z01.20 [facility] [address] [id number] [address] [place] [address] 19 Jul, 2017 Generalized anxiety disorder F41.1 [facility] [address] [id number] [address] [place] [address] 11 Jul, 2017 Diverticulitis K57.92 [facility] [address] [id number] [address] [place] [address] 28 Jun, 2017 Encounter for immunization Z 23 [facility] [address] [id number] [address] [place] [address] 22 Jun, 2017 Dental examination Z01.20 [facility] [address] [id number] [address] [place] [address] 14 Jun, 2017 Generalized anxiety disorder F41.1 [facility] [address] [id number] [address] [address] 07 Jun, 2017 Dental examination Z01.20 [facility] [address] [id number] [address] [place] [address] May, [facility] [address] [id number] [address] [place] [id number] May, Dental examination Z01.20 [facility] [address] [id number] [address] [place] [address] [id number] May, Dental examination Z01.20 [facility] [address] [id number] [address] [place] [address] May, Dental examination Z01.20 [facility] [address] [id number] [address] [place] [address] May, [facility] [address] [id number] [address] [place] [address] May, Generalized anxiety disorder F41.1 [facility] [address] [id number] [address] [place] [address] May, Localized edema R60.0 ; Yeas t vaginitis B37.3 and Gastroesophageal reflux disease with esophagitis K21.0 [facility] [address] [id number] [address] [place] [address] [id number] Apr, Dental examination Z01.20 [facility] [address] [id number] [address] [place] [address] Apr, Dental examination Z01.20 [facility] [address] [id number] [address] [place] [address] 05 Apr, 2017 Dental examination Z01.20 [facility] [address] [id number] [address] [place] [address] Mar, Dyspepsia R10.13 [facility] [address] [id number] [address] [place] [address] Mar, Generalized anxiety disorder F41.1 [facility] [address] [id number] [address] [place] [address] Mar, Encounter for dental examina tion Z01.20 [facility] [address] [id number] [address] [place] [address] [id number] Mar, [facility] [address] [id number] [address] [place] [id number] Mar, Dental examination Z01.20 [facility] [address] [id number] [address] [place] [address] Feb, Hypertension I10 and Tachyca rdia R00.0 [facility] [address] [id number] [address] [address] Feb, [facility] [address] [id number] [address] [place] [address] Feb, Generalized anxiety disorder F41.1 [facility] [address] [id number] [address] [place] [id number] Feb, Dental examination Z01.20 [facility] [address] [id number] [address] [place] [address] Jan, Generalized anxiety disorder F41.1 [facility] [address] [id number] [address] [place] [phone] December, Generalized anxiety disorder F41.1 [facility] [address] [id number] [address] [place] [address] [id number] December, Encounter for dental examina tion Z01.20 [facility] [address] [id number] [address] [place] [id number] Nov, [facility] [address] [id number] [address] [place] [address] Nov, [facility] [address] [id number] [address] [place] [phone] Nov, Generalized anxiety disorder F41.1 [facility] [address] [id number] [address] [place] [id number] Oct, [facility] [address] [facility] [id number] [address] [place] [id number] 29 Oct, 2016 Dental examination Z01.20 [facility] [address] [place] [id number] [address] [place] [address] 27 Oct, 2016 Vaginal dryness N89.8 [facility] [address] [place] [id number] [address] [place] [address] Oct, Pseudoseizures F44.5 [place] [address] [place] [id number] [address] [place] [address] Oct, Generalized anxiety disorder F41.1 [place] [address] [address] Sep, Abnormal uterine bleeding (A UB) N93.9 ; Vaginal dryness N89.8 and Screening breast examination Z12.39 [place] [address] [address] Sep, Dental examination Z01.20 [place] [address] [place] [id number] [address] [place] [address] Sep, Generalized anxiety disorder F41.1 [place] [address] [place] [id number] [address] [place] [phone] 06 Sep, 2016 Unspecified ovarian cyst, ri ght side N83.201 ; Unspecified ovarian cyst, left side N83.202 ; Yeast infection of the vagina B37.3 ; Mitral valve prolapse I34.1 and Hypertension I10 [place] [id number] [place] [address] Aug, Generalized anxiety disorder F41.1 [place] [address] [place] [id number] [address] [place] [address] Jul, [place] [address] [address] Jul, Generalized anxiety disorder F41.1 [place] [address] [address] Jun, Generalized anxiety disorder F41.1 [facility] [address] [facility] [id number] [address] [place] [phone] 28 May, 2016 Encounter for immunization Z 23 [facility] [address] [id number] [address] [place] [phone] 17 May, 2016 Generalized anxiety disorder F41.1 and Depressive disorder, not elsewhere classified F32.9 [facility] [address] [facility] [id number] [address] [place] [id number] 28 Apr, 2016 Hypertension I10 [facility] [address] [facility] [id number] [address] [place] [address] 22 Apr, 2016 Cervicalgia M54.2 [facility] [address] [facility] [id number] [address] [place] [phone] 12 Apr, 2016 Cervicalgia M54.2 [facility] [address] [facility] [id number] [address] [place] [phone] 09 Mar, 2016 Generalized anxiety disorder F41.1 and Depressive disorder, not elsewhere classified F32.9 [facility] [address] [id number] [address] [place] [id number] 14 Feb, 2016 Visit for dental examination Z01.20 [facility] [address] [facility] [id number] [address] [place] [phone] 11 Feb, 2016 Pseudoseizures F44.5 ; Migra ine without status migrainosus, not intractable, unspecified migraine type G43.909 and Essential hypertension I10 [facility] [address] [id number] [address] [place] [id number] 06 Feb, 2016 Dental examination Z01.20 [facility] [address] [facility] [id number] [address] [place] [phone] 05 Feb, 2016 Generalized anxiety disorder F41.1 and Depressive disorder, not elsewhere classified F32.9 [facility] [address] [facility] [id number] [address] [place] [phone] Jan, Tachycardia R00.0 [facility] [address] [facility] [id number] [address] [place] [phone] December, Eustachian tube dysfunction, bilateral H69.83 [place] [address] [facility] [id number] [address] [place] [phone] December, Generalized anxiety disorder F41.1 and Depressive disorder, not elsewhere classified F32.9 [place] [address] [address] [facility] [id number] [address] [place] [phone] Nov, [place] [place] [address] [address] [facility] [id number] [address] [place] [id number] Nov, [place] [address] [place] [id number] [address] [place] [address] Nov, Hypertension I10 ; Onychomyc osis B35.1 [...] and Complex cyst of left ovary N83.29 [place] [address] [address] [facility] [id number] [address] [place] [address] 14 Nov, 2015 Sinusitis J32.9 [place] [address] [address] [facility] [id number] [address] [place] [address] Oct, Complex cyst of left ovary N 83.29 [place] [address] [address] [facility] [id number] [address] [place] [address] Oct, Onychomycosis B35.1 [facility] [address] [id number] [address] [place] [id number] Oct, Dental examination Z01.20 [facility] [address] [facility] [id number] [address] [place] [address] Oct, Well woman exam Z01.419 ; En [...] R92.2 and History of colon polyps Z86.010 [place] [address] [address] [facility] [id number] [address] [place] [id number] 03 Oct, 2015 Generalized anxiety disorder F41.1 and Depressive disorder, not elsewhere classified F32.9 [place] [address] [address] [place] [id number] [address] [place] [id number] 22 Sep, 2015 Hypertension I10 and Onychom ycosis B35.1 [place] [address] [address] [facility] [id number] [address] [place] [phone] 16 Sep, 2015 Skin tags, multiple acquired L91.8 [place] [address] [address] [facility] [id number] [address] [place] [phone] Aug, [place] [address] [address] [facility] [id number] [address] [place] [address] Aug, [place] [address] [address] [facility] [id number] [address] [place] [address] Aug, [place] [address] [address] [facility] [id number] [address] [place] [address] Aug, Generalized anxiety disorder F41.1 and Depressive disorder, not elsewhere classified F32.9 [place] [address] [address] [facility] [id number] [address] [place] [id number] Jul, Skin lesion L98.9 [place] [address] [address] [facility] [id number] [address] [place] [address] Jun, Generalized anxiety disorder F41.1 and Depressive disorder, not elsewhere classified F32.9 [place] [address] [address] [place] [id number] [address] [place] [address] Jun, [facility] [address] [id number] [address] [place] [address] Jun, Generalized anxiety disorder F41.1 [facility] [address] [id number] [address] [place] [address] May, Encounter for immunization Z 23 and Right shoulder pain M25.511 [facility] [address] [id number] [address] [place] [address] Apr, [facility] [address] [id number] [address] [place] [id number] 14 Apr, 2015 Generalized anxiety disorder 300.02 and Depressive disorder, not elsewhere classified 311 [facility] [address] [id number] [address] [place] [id number] Mar, Dental examination V72.2 [facility] [address] [id number] [address] [place] [address] Mar, Generalized anxiety disorder 300.02 and Depressive disorder, not elsewhere classified 311 [facility] [address] [id number] [address] [place] [id number] Mar, Depression, major, recurrent , 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.35 and 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 [facility] [address] [id number] [address] [place] [address] Feb, Generalized anxiety disorder 300.02 and Depressive disorder, not elsewhere classified 311 [facility] [address] [id number] [address] [place] [id number] Feb, Dental examination V72.2 [facility] [address] [id number] [address] [place] [address] Jan, Generalized anxiety disorder 300.02 and Depressive disorder, not elsewhere classified 311 [facility] [address] [id number] [address] [place] [phone] Jan, [facility] [address] [id number] [address] [place] [id number] December, Generalized anxiety disorder 300.02 and Depressive disorder, not elsewhere classified 311 [facility] [address] [facility] [id number] [address] [place] [address] December, Major depressive disorder, r ecurrent, unspecified 296.30 and Panic disorder with agoraphobia 300.21 [facility] [address] [facility] [id number] [address] [place] [address] Nov, [facility] [address] [facility] [id number] [address] [place] [id number] Nov, [facility] [address] [facility] [id number] [address] [place] [phone] Oct, [facility] [address] [facility] [id number] [address] [place] [phone] Oct, [facility] [address] [facility] [id number] [address] [place] [address] Oct, [facility] [address] [facility] [id number] [address] [place] [phone] Oct, [facility] [address] [facility] [id number] [address] [place] [phone] Sep, [facility] [address] [facility] [id number] [address] [place] [phone] Sep, [facility] [address] [facility] [id number] [address] [place] [phone] Sep, [facility] [address] [facility] [id number] [address] [place] [phone] Sep, [facility] [address] [facility] [id number] [address] [place] [id number] Sep, [facility] [address] [facility] [id number] [address] [place] [phone] Sep, [facility] [address] [facility] [id number] [address] [place] [phone] Sep, 2014 [facility] [address] [id number] [address] [place] [address], [place] [address] Sep, 2014 [facility] [address] [id number] [address] [place] [address], [place] [address] Sep, 2014 [facility] [address] [id number] [address] [place] [address], [place] [address] Sep, [facility] [address] [id number] [address] [place] [address], [place] [address] Aug, [facility] [address] [id number] [address] [place] [address], [place] [address] Aug, [facility] [address] [id number] [address] [place] [address], [place] [address] Jul, [facility] [address] [id number] [address] [place] [address], [place] [address] Jul, [facility] [address] [id number] [address] [place] [address], [place] [address] Jul, [facility] [address] [id number] [address] [place] [address], [place] [address] Jul, [facility] [address] [id number] [address] [place] [address], [place] [address] Jul, [facility] [address] [id number] [address] [place] [address], [place] [address] Jul, [facility] [address] [id number] [address] [place] [address], [place] [address] Jul, [facility] [address] [id number] [address] [place] [address], [place] [address] 05 Jul, 2014 [facility] [address] [id number] [address] [place] [address], [place] [address] 04 Jul, 2014 [facility] [address] [id number] [address] [place] [address], [place] [address] Jul, [facility] [address] [id number] [address] [place] [address], [place] [address] Jul, [facility] [address] [id number] [address] [place] [address], [place] [address] Jul, [facility] [address] [id number] [address] [place] [address], [place] [address] Jun, [facility] [address] [id number] [address] [place] [address], [place] [address] Jun, [facility] [address] [id number] [address] [place] [address], [place] [address] May, [facility] [address] [id number] [address] [place] [address], [place] [address] May, [facility] [address] [id number] [address] [place] [address], [place] [address] May, [facility] [address] [id number] [address] [place] [address], [place] [address] May, [facility] [address] [id number] [address] [place] [address], [place] [address] May, [facility] [address] [id number] [address] [place] [address], [place] [address] May, [facility] [address] [id number] [address] [place] [address], [place] [address] May, [facility] [address] [id number] [address] [place] [address], [place] [address] May, [facility] [address] [id number] [address] [place] [address], [place] [address] May, [facility] [address] [id number] [address] [place] [address], [place] [address] May, [facility] [address] [id number] [address] [place] [address], [place] [address] May, [facility] [address] [id number] [address] [place] [address], [place] [address] May, [facility] [address] [id number] [facility] [place] [address] Apr, [facility] [address] [id number] [address] [place] [address], [place] [address] Apr, [facility] [address] [id number] [address] [place] [address], [place] [address] Apr, [facility] [address] [id number] [address] [place] [address], [place] [address] Apr, [facility] [address] [id number] [address] [place] [address], [place] [address] Apr, [facility] [address] [id number] [address] [place] [address], [place] [address] Apr, [facility] [address] [id number] [address] [place] [address], [place] [address] Feb, [facility] [address] [id number] [address] [place] [address], [place] [address] Feb, [facility] [address] [id number] [address] [place] [address], [place] [address] Feb, [facility] [address] [id number] [address] [place] [address], [place] [address] Feb, [facility] [address] [id number] [address] [place] [address], [place] [address] Feb, [facility] [address] [id number] [address] [place] [address], [place] [address] Feb, [facility] [address] [id number] [address] [place] [address], [place] [address] Jan, [facility] [address] [id number] [address] [place] [address], [place] [address] Jan, [facility] [address] [id number] [address] [place] [address], [place] [address] Jan, [facility] [address] [id number] [facility] [place] [address] Jan, [facility] [address] [id number] [address] [place] [address], [place] [address] Jan, [facility] [address] [id number] [address] [place] [address], [place] [address] Jan, [facility] [address] [id number] [address] [place] [address], [place] [address] Jan, [facility] [address] [id number] [address] [place] [address], [place] [address] Jan, [facility] [address] [id number] [address] [place] [address], [place] [address] December, [facility] [address] [id number] [address] [place] [address], [place] [address] December, [facility] [address] [id number] [address] [place] [address], [place] [address] December, [facility] [address] [id number] [address] [place] [address], [place] [address] December, [facility] [address] [id number] [address] [place] [address], [place] [address] Nov, [facility] [address] [id number] [address] [place] [address], [place] [address] Nov, [facility] [address] [id number] [address] [place] [address], [place] [address] Nov, [facility] [address] [id number] [address] [place] [address], [place] [address] Nov, [facility] [address] [id number] [address] [place] [address], [place] [address] Nov, [facility] [address] [id number] [address] [place] [address], [place] [address] Nov, [facility] [address] [id number] [address] [place] [address], [place] [address] Nov, [facility] [address] [id number] [address] [place] [address], [place] [address] Nov, [facility] [address] [id number] [address] [place] [address], [place] [address] Oct, [facility] [address] [id number] [address] [place] [address], [place] [address] Oct, [facility] [address] [id number] [address] [place] [address], [place] [address] Sep, [facility] [address] [id number] [address] [place] [address], [place] [address] Sep, [facility] [address] [id number] [address] [place] [address], [place] [id number] Sep, [facility] [address] [id number] [address] [place] [address], [place] [address] Sep, [facility] [address] [id number] [address] [place] [address], [place] [address] Sep, [facility] [address] [id number] [address] [place] [address], [place] [address] Sep, [facility] [address] [id number] [address] [place] [address], [place] [address] Aug, [facility] [address] [id number] [address] [place] [address], [place] [address] Aug, [facility] [address] [id number] [address] [place] [address], [place] [address] Aug, [facility] [address] [id number] [address] [place] [address], [place] [address] Aug, [facility] [address] [id number] [address] [place] [address], [place] [address] Jul, [facility] [address] [id number] [address] [place] [address], [place] [address] Jul, [facility] [address] [id number] [address] [place] [address] [place] [address] Jul, [facility] [address] [id number] [address] [place] [address], [place] [address] Jul, [facility] [address] [id number] [address] [place] [address], [place] [address] Jun, [facility] [address] [id number] [address] [place] [address], [place] [address] Jun, [facility] [address] [id number] [address] [place] [address], [place] [address] May, [facility] [address] [id number] [address] [place] [address], [place] [address] May, [facility] [address] [id number] [address] [place] [address], [place] [address] May, [facility] [address] [id number] [address] [place] [address], [place] [address] May, [facility] [address] [id number] [address] [place] [address], [place] [address] May, [facility] [address] [id number] [address] [place] [address], [place] [address] Apr, [facility] [address] [id number] [address] [place] [address], [place] [address] Apr, [facility] [address] [id number] [address] [place] [address], [place] [address] Mar, [facility] [address] [id number] [address] [place] [address], [place] [address] Mar, [facility] [address] [id number] [address] [place] [address], [place] [address] Mar, [facility] [address] [id number] [address] [place] [address], [place] [address] Mar, [facility] [address] [id number] [address] [place] [address], [place] [address] Feb, [facility] [address] [id number] [address] [place] [address], [place] [address] 17 Feb, 2013 [facility] [address] [id number] [address] [place] [address], [place] [address] 16 Feb, 2013 [facility] [address] [id number] [address] [place] [address], [place] [address] Feb, [facility] [address] [id number] [address] [place] [address], [place] [address] Feb, [facility] [address] [id number] [address] [place] [address], [place] [address] Jan, [facility] [address] [id number] [address] [place] [address], [place] [address] Jan, [facility] [address] [id number] [address] [place] [address], [place] [address] Jan, [facility] [address] [id number] [address] [place] [address], [place] [address] Jan, [facility] [address] [id number] [address] [place] [address], [place] [address] Jan, [facility] [address] [id number] [address] [place] [address], [place] [address] December, [facility] [address] [id number] [address] [place] [address], [place] [address] December, [facility] [address] [id number] [address] [place] [address], [place] [address] Nov, [facility] [address] [id number] [address] [place] [address], [place] [address] Nov, [facility] [address] [id number] [address] [place] [address], [place] [address] 19 Oct, 2012 [facility] [address] [id number] [address] [place] [address], [place] [address] 13 Oct, 2012 [facility] [address] [id number] [address] [place] [address], [place] [address] 05 Oct, 2012 [facility] [address] [id number] [address] [place] [address], [place] [address] 14 Sep, 2012 [facility] [address] [id number] [address] [place] [address], [place] [address] 24 Aug, 2012 [facility] [address] [id number] [address] [place] [address], [place] [address] 16 Aug, 2012 [facility] [address] [id number] [address] [place] [address], [place] [address] 15 Aug, 2012 [facility] [address] [id number] [address] [place] [address], [place] [address] Aug, [facility] [address] [id number] [address] [place] [address], [place] [address] Jul, [facility] [address] [id number] [address] [place] [address], [place] [address] Jul, [facility] [address] [id number] [address] [place] [address], [place] [address] Jul, [facility] [address] [id number] [address] [place] [address], [place] [address] Jul, [facility] [address] [id number] [address] [place] [address], [place] [address] Jul, [facility] [address] [id number] [address] [place] [address], [place] [address] Jul, [facility] [address] [id number] [address] [place] [address], [place] [address] Jul, [facility] [address] [id number] [address] [place] [address], [place] [address] Jul, [facility] [address] [id number] [address] [place] [address], [place] [address] Jun, [facility] [address] [id number] [address] [place] [address], [place] [address] Jun, [facility] [address] [id number] [address] [place] [address], [place] [address] Jun, [facility] [address] [id number] [address] [place] [address], [place] [address] Jun, [facility] [address] [id number] [address] [place] [address], [place] [address] Jun, [facility] [address] [id number] [address] [place] [address], [place] [address] Jun, [facility] [address] [id number] [address] [place] [address], [place] [address] May, [facility] [address] [id number] [address] [place] [address], [place] [address] May, [facility] [address] [id number] [address] [place] [address], [place] [address] May, [facility] [address] [id number] [address] [place] [address], [place] [address] May, [facility] [address] [id number] [address] [place] [address], [place] [address] Apr, [facility] [address] [id number] [address] [place] [address], [place] [address] 06 Apr, 2012 [facility] [address] [id number] [address] [place] [address], [place] [address] Mar, [facility] [address] [id number] [address] [place] [address], [place] [address] 28 Jan, 2012 [facility] [address] [id number] [address] [place] [address], [place] [address] 20 Jan, 2012 [facility] [address] [id number] [address] [place] [address], [place] [address] 16 Jan, 2012 [facility] [address] [id number] [address] [place] [address], [place] [address] 15 Jan, 2012 [facility] [address] [id number] [address] [place] [address], [place] [address] 14 Jan, 2012 [facility] [address] [id number] [address] [place] [address], [place] [address] 14 Jan, 2012 [facility] [address] [id number] [address] [place] [address], [place] [address] Jan, [facility] [address] [id number] [address] [place] [address], [place] [address] December, [facility] [address] [id number] [address] [place] [address], [place] [address] December, [facility] [address] [id number] [address] [place] [address], [place] [address] December, [facility] [address] [id number] [address] [place] [address], [place] [address] December, [facility] [address] [id number] [address] [place] [address], [place] [address] Nov, [facility] [address] [id number] [address] [place] [address], [place] [address] Nov, [facility] [address] [id number] [address] [place] [address], [place] [address] Oct, [facility] [address] [id number] [address] [place] [address], [place] [address] Oct, [facility] [address] [id number] [address] [place] [address], [place] [address] Oct, [facility] [address] [id number] [address] [place] [address], [place] [address] Sep, [facility] [address] [id number] [address] [place] [address], [place] [address] Sep, [facility] [address] [id number] [address] [place] [address], [place] [address] Sep, [facility] [address] [id number] [address] [place] [address], [place] [address] Aug, [facility] [address] [id number] [address] [place] [address], [place] [address] Aug, [facility] [address] [id number] [address] [place] [address], [place] [address] Aug, [facility] [address] [id number] [address] [place] [address], [place] [address] Aug, [facility] [address] [id number] [address] [place] [address], [place] [address] Aug, [facility] [address] [id number] [address] [place] [address], [place] [address] Aug, [facility] [address] [id number] [address] [place] [address], [place] [address] Aug, [facility] [address] [id number] [address] [place] [address], [place] [address] Jul, [facility] [address] [id number] [address] [place] [address], [place] [address] 02 Jul, 2011 [facility] [address] [id number] [address] [place] [address], [place] [address] 30 Jun, 2011 [facility] [address] [id number] [address] [place] [address], [place] [address] 28 Jun, 2011 [facility] [address] [id number] [address] [place] [address], [place] [address] 17 Jun, 2011 [facility] [address] [id number] [address] [place] [address], [place] [address] 15 Jun, 2011 [facility] [address] [id number] [address] [place] [address], [place] [address] 14 Jun, 2011 [facility] [address] [id number] [address] [place] [address], [place] [address] 14 Jun, 2011 [facility] [address] [id number] [address] [place] [address], [place] [address] 07 Jun, 2011 [facility] [address] [id number] [address] [place] [address], [place] [address] 07 Jun, 2011 [facility] [address] [id number] [address] [place] [address], [place] [address] Jun, [facility] [address] [id number] [address] [place] [address], [place] [address] Jun, [facility] [address] [id number] [address] [place] [address], [place] [address] May, [facility] [address] [id number] [address] [place] [address], [place] [address] May, [facility] [address] [id number] [address] [place] [address], [place] [address] May, [facility] [address] [id number] [address] [place] [address], [place] [address] 24 May, 2011 [facility] [address] [id number] [address] [place] [address], [place] [address] May, [facility] [address] [id number] [address] [place] [address], [place] [address] May, [facility] [address] [id number] [address] [place] [address], [place] [address] Feb, [facility] [address] [id number] [address] [place] [address], [place] [address] December, [facility] [address] [id number] [address] [place] [address], [place] [address] Jul, [facility] [address] [id number] [address] [place] [address], [place] [address] Jul, [facility] [address] [id number] [address] [place] [address], [place] [address] Jul, [facility] [address] [id number] [address] [place] [address], [place] [address] Jul, [facility] [address] [id number] [address] [place] [address], [place] [address] 15 Jun, 2010 [facility] [address] [id number] [address] [place] [address], [place] [address] 31 Jul, 2009 [facility] [address] [id number] [address] [place] [id number] Jul, [facility] [address] [id number] [address] [place] [phone] Jul, [facility] [address] [id number] [address] [place] [address] Jul, [facility] [address] [id number] [address] [place] [id number] Jul, [facility] [address] [id number] [address] [place] [id number] Jul, [facility] [address] [id number] [address] [place] [address] Jan, [facility] [address] [id number] [address] [place] [id number] 16 Sep, 2008 [facility] [address] [id number] [address] [place] [phone] Sep, IMMUNIZATIONS No Known Immunizations SOCIAL HISTORY Never Assessed REASON FOR VISIT PLAN OF CARE VITAL SIGNS Height 66 in 2013-04-06 Weight 199.6 lbs 2013-04-06 Temperature 98 degrees Fahrenheit 2013-04-06 Heart Rate 72 bpm 2013-04-06 Respiratory Rate 14 2013-04-06 Blood pressure systolic 130 mmHg 2013-04-06 Blood pressure diastolic 72 mmHg 2013-04-06 MEDICATIONS Unknown Medications RESULTS No Results PROCEDURES Procedure Date Ordered Result Body Site MAMMOGRAM, SCREENING Apr 06, 2013 COMPLETE CBC W/AUTO DIFF WBC Apr 06, 2013 LIPID PANEL Apr 06, 2013 COMPREHEN METABOLIC PANEL Apr 06, 2013 VENIPUNCT, ROUTINE* Apr 06, 2013 INSTRUCTIONS MEDICATIONS ADMINISTERED No Known Medications [...]
--- OUTSIDE RECORDS SUMMARY | 2020-01-27 10:06 | XMS REPORT ---
Author Author Silvia MERCHANT Organization [facility] [place] Address [address] [place] [address] Care Team Providers Care Petrographer Name Role Phone KVNG MERCHANT Unavailable PROBLEMS Type Condition ICD9-CM Code TIL87-DZ Code Onset Dates Condition S tatus SNOMED Code Problem Hypertension I10 Active 8963515 3 Problem Generalized anxiety disorder F41.1 A ctive 933506895 Problem History of colon polyps Z86.010 Active 434548078 Problem History of diverticulitis Z87.19 Acti ve [id number] Problem Family history of diabetes mellitus Z83.3 Active 377893389 Problem Excessive and frequent menstruation with irregular cycle N92.1 Active 960896025 Problem Hot flashes N95.1 Active 09338880 8 Problem Gastroesophageal reflux disease with esophagitis K 21.0 Active 699071356 Problem History of ovarian cyst Z87.42 Active 21794913 Problem Diverticulitis K57.92 Active 76833 6006 Problem Dense breast tissue R92.2 Active 466559685 Problem Perimenopausal N95.1 Active 30831 5323215740 Problem Mitral valve prolapse I34.1 Active 242428947 Problem Abnormal uterine bleeding (AUB) N93.9 Active 81388763538686 Problem Tachycardia R00.0 Active 9147363 ALLERGIES No Information ENCOUNTERS Encounter Location Date Diagnosis [facility] [place] [address] [facility] [id number] [address] [place] [phone] Nov, [facility] [place] [address] [facility] [id number] [address] [place] [phone] Nov, [facility] [place] [address] [facility] [id number] [address] [place] [phone] Oct, Generalized anxiety disorder F41.1 and Bereavement Z63.4 [facility] [place] [address] [facility] [id number] [address] [place] [phone] 16 Oct, 2019 Acute non-recurrent sinusiti s, unspecified location J01.90 [facility] [address] [id number] [address] [place] [phone] 05 Oct, 2019 Acute non-recurrent frontal sinusitis J01.10 [facility] [place] [address] [id number] [address] [place] [phone] 27 Sep, 2019 Generalized anxiety disorder F41.1 and Bereavement Z63.4 [facility] [place] [address] [id number] [address] [place] [id number] 17 Sep, 2019 [facility] [place] [address] [id number] [address] [place] [phone] 11 Sep, 2019 Generalized anxiety disorder F41.1 and Bereavement Z63.4 [place] [address] [id number] [address] [place] [phone] 15 Aug, 2019 Generalized anxiety disorder F41.1 and Bereavement Z63.4 [facility] [place] [address] [id number] [address] [place] [phone] Aug, Generalized anxiety disorder F41.1 [facility] [place] [address] [id number] [address] [place] [phone] Aug, Viral upper respiratory trac t infection J06.9 [facility] [place] [address] [id number] [address] [place] [phone] Jul, Generalized anxiety disorder F41.1 and Bereavement Z63.4 [facility] [place] [address] [id number] [address] [place] [phone] Jul, Acute non-recurrent frontal sinusitis J01.10 [facility] [address] [id number] [address] [place] [phone] Jul, [facility] [address] [facility] [id number] [address] [place] [phone] Jul, Sore throat J02.9 and Uvulit is K12.2 [place] [address] [id number] [address] [place] [id number] 16 Jul, 2019 Generalized anxiety disorder F41.1 [facility] [address] [id number] [place] [address] Jul, Caries K02.9 [facility] [place] [address] [facility] [id number] [address] [place] [phone] Jun, Generalized anxiety disorder F41.1 [facility] [place] [address] [facility] [id number] [address] [place] [phone] Jun, Generalized anxiety disorder F41.1 and Bereavement Z63.4 [facility] [place] [address] [id number] [address] [place] [phone] May, Generalized anxiety disorder F41.1 [facility] [address] [facility] [id number] [address] [place] [phone] May, Dysuria R30.0 [facility] [place] [address] [facility] [id number] [address] [place] [phone] May, Generalized anxiety disorder F41.1 and Bereavement Z63.4 [facility] [place] [address] [facility] [id number] [address] [place] [phone] May, [facility] [place] [address] [facility] [id number] [address] [place] [phone] Apr, Generalized anxiety disorder F41.1 and Bereavement Z63.4 [facility] [place] [address] [facility] [id number] [address] [place] [phone] Apr, Generalized anxiety disorder F41.1 [facility] [address] [id number] [address] [place] [address] Mar, Caries K02.9 ; Dental examin ation Z01.20 ; Periodontitis K05.30 and Oral health maintenance status requiring routine preventive dental care K08.9 [facility] [place] [address] [facility] [id number] [address] [place] [id number] Mar, Generalized anxiety disorder F41.1 [facility] [place] [address] [facility] [id number] [address] [place] [phone] Mar, Gastrointestinal hemorrhage associated with gastroduodenitis K29.91 [facility] [place] [address] [facility] [id number] [address] [place] [phone] Mar, Generalized anxiety disorder F41.1 and Bereavement Z63.4 [facility] [place] [address] [id number] [address] [place] [phone] Mar, [facility] [place] [address] [facility] [id number] [address] [place] [phone] Mar, [facility] [place] [address] [facility] [id number] [address] [place] [phone] Mar, [facility] [place] [address] [facility] [id number] [address] [place] [phone] Mar, Tachycardia R00.0 and Essent ial hypertension I10 [facility] [place] [address] [facility] [id number] [address] [place] [phone] Feb, Generalized anxiety disorder F41.1 [facility] [place] [address] [facility] [id number] [address] [place] [phone] Feb, Generalized anxiety disorder F41.1 and Bereavement Z63.4 [facility] [place] [address] [facility] [id number] [address] [place] [phone] Feb, Generalized anxiety disorder F41.1 [facility] [place] [address] [facility] [id number] [address] [place] [phone] Feb, Generalized anxiety disorder F41.1 and Bereavement Z63.4 [facility] [place] [address] [facility] [id number] [address] [place] [phone] Jan, [facility] [place] [address] [facility] [id number] [address] [place] [phone] Jan, Breast cancer screening by trenton crenshaw Z12.31 [facility] [place] [address] [facility] [id number] [address] [place] [phone] Jan, Generalized anxiety disorder F41.1 and Bereavement Z63.4 [facility] [place] [address] [facility] [id number] [address] [place] [phone] Jan, [facility] [place] [address] [facility] [id number] [address] [place] [phone] December, Generalized anxiety disorder F41.1 and Bereavement Z63.4 [facility] [place] [address] [facility] [id number] [address] [place] [phone] December, Diverticulitis K57.92 ; Dysu nick R30.0 ; Other constipation K59.09 and Lower abdominal pain R10.30 [facility] [address] [facility] [id number] [address] [place] [address] Nov, Diverticulitis K57.92 [facility] [place] [address] [facility] [id number] [address] [place] [phone] Nov, Generalized anxiety disorder F41.1 and Bereavement Z63.4 [facility] [place] [address] [facility] [id number] [address] [place] [phone] Nov, Generalized anxiety disorder F41.1 and Bereavement Z63.4 [facility] [place] [address] [facility] [id number] [address] [place] [id number] Nov, Diverticulitis K57.92 [facility] [address] [facility] [id number] [address] [place] [phone] Oct, Diverticulitis K57.92 [facility] [place] [address] [facility] [id number] [address] [place] [phone] Oct, Diverticulitis K57.92 [facility] [place] [address] [facility] [id number] [address] [place] [phone] Oct, Generalized anxiety disorder F41.1 [facility] [address] [facility] [id number] [address] [place] [phone] Oct, Right lower quadrant abdomin al pain R10.31 and Diverticulitis K57.92 [facility] [place] [address] [facility] [id number] [address] [place] [phone] Sep, Generalized anxiety disorder F41.1 and Bereavement Z63.4 [facility] [place] [address] [facility] [id number] [address] [place] [phone] Aug, [facility] [place] [address] [facility] [id number] [address] [place] [phone] Aug, Generalized anxiety disorder F41.1 and Bereavement Z63.4 [facility] [address] [id number] [address] [place] [phone] Aug, Caries K02.9 [place] [address] [place] [id number] [address] [place] [address] Jul, Generalized anxiety disorder F41.1 and Bereavement Z63.4 [place] [address] [place] [id number] [address] [place] [phone] Jul, Other acute gastritis withou t hemorrhage K29.00 ; Generalized anxiety disorder F41.1 ; Tachycardia R00.0 and Essential hypertension I10 [place] [address] [facility] [id number] [address] [place] [phone] Jul, Generalized anxiety disorder F41.1 and Bereavement Z63.4 [facility] [place] [address] [facility] [id number] [address] [place] [phone] Jun, Generalized anxiety disorder F41.1 and Bereavement Z63.4 [place] [address] [facility] [id number] [address] [place] [phone] Jun, Generalized anxiety disorder F41.1 and Bereavement Z63.4 [facility] [address] [id number] [address] [place] [phone] 02 Jun, 2018 Dental examination Z01.20 [facility] [place] [address] [facility] [id number] [address] [place] [phone] May, Generalized anxiety disorder F41.1 and Bereavement Z63.4 [facility] [place] [address] [id number] [address] [place] [phone] 08 May, 2018 Encounter for immunization Z 23 [facility] [place] [address] [id number] [address] [place] [phone] 08 May, 2018 Generalized anxiety disorder F41.1 and Bereavement Z63.4 [facility] [place] [address] [id number] [address] [place] [phone] May, [facility] [place] [address] [id number] [address] [place] [phone] 24 Apr, 2018 Generalized anxiety disorder F41.1 and Bereavement Z63.4 [facility] [place] [address] [id number] [address] [place] [phone] 17 Apr, 2018 [facility] [place] [address] [id number] [address] [place] [address] Apr, Diverticulitis K57.92 [facility] [place] [address] [id number] [address] [place] [phone] 10 Apr, 2018 Generalized anxiety disorder F41.1 and Bereavement Z63.4 [facility] [address] [id number] [address] [place] [phone] Mar, [facility] [address] [id number] [address] [place] [phone] Mar, Diverticulitis K57.92 [facility] [place] [address] [id number] [address] [place] [address] Mar, Generalized anxiety disorder F41.1 and Bereavement Z63.4 [facility] [place] [address] [facility] [id number] [address] [place] [phone] 13 Mar, 2018 Hypertension I10 [facility] [place] [address] [id number] [address] [place] [phone] 07 Mar, 2018 Generalized anxiety disorder F41.1 and Bereavement Z63.4 [facility] [place] [address] [id number] [address] [place] [phone] Feb, Generalized anxiety disorder F41.1 and Bereavement Z63.4 [facility] [place] [address] [id number] [address] [place] [phone] Feb, [facility] [place] [address] [id number] [address] [place] [phone] Feb, Generalized anxiety disorder F41.1 and Bereavement Z63.4 [facility] [place] [address] [id number] [address] [place] [phone] Feb, Generalized anxiety disorder F41.1 and Bereavement Z63.4 [facility] [place] [address] [id number] [address] [place] [id number] Jan, Hypertension I10 and Acute n on-recurrent maxillary sinusitis J01.00 [facility] [place] [address] [id number] [address] [place] [phone] December, [facility] [place] [address] [id number] [address] [place] [phone] December, Hypertension I10 [facility] [place] [address] [id number] [address] [place] [id number] December, Generalized anxiety disorder F41.1 [facility] [address] [id number] [address] [place] [phone] Oct, Encounter for dental examina tion Z01.20 [facility] [address] [id number] [address] [place] [id number] Oct, Encounter for dental examina tion Z01.20 [facility] [address] [id number] [address] [place] [address] Oct, Dental examination Z01.20 [facility] [place] [address] [id number] [address] [place] [phone] Oct, Generalized anxiety disorder F41.1 [facility] [address] [id number] [place] [address] 30 Aug, 2017 Dental examination Z01.20 [facility] [place] [address] [id number] [address] [place] [phone] 29 Aug, 2017 Generalized anxiety disorder F41.1 [facility] [place] [address] [id number] [address] [place] [phone] Aug, [facility] [address] [id number] [address] [place] [phone] 09 Aug, 2017 Encounter for dental examina tion Z01.20 [facility] [place] [address] [id number] [address] [place] [phone] 08 Aug, 2017 Subacute maxillary sinusitis J01.00 [facility] [address] [id number] [address] [place] [phone] 22 Jul, 2017 Dental examination Z01.20 [facility] [place] [address] [id number] [address] [place] [phone] 19 Jul, 2017 Generalized anxiety disorder F41.1 [facility] [place] [address] [id number] [address] [place] [id number] 11 Jul, 2017 Diverticulitis K57.92 [facility] [place] [address] [id number] [address] [place] [phone] 28 Jun, 2017 Encounter for immunization Z 23 [facility] [address] [id number] [address] [address] 22 Jun, 2017 Dental examination Z01.20 [facility] [place] [address] [id number] [address] [place] [phone] 14 Jun, 2017 Generalized anxiety disorder F41.1 [facility] [address] [id number] [address] [address] 07 Jun, 2017 Dental examination Z01.20 [facility] [place] [address] [id number] [address] [place] [phone] May, [facility] [address] [id number] [address] [place] [id number] May, Dental examination Z01.20 [facility] [address] [id number] [address] [place] [id number] May, Dental examination Z01.20 [facility] [address] [id number] [address] [place] [phone] May, Dental examination Z01.20 [facility] [place] [address] [id number] [address] [place] [phone] May, [facility] [place] [address] [id number] [address] [place] [phone] May, Generalized anxiety disorder F41.1 [facility] [place] [address] [id number] [address] [place] [phone] May, Localized edema R60.0 ; Yeas t vaginitis B37.3 and Gastroesophageal reflux disease with esophagitis K21.0 [facility] [address] [id number] [address] [place] [phone] Apr, Dental examination Z01.20 [facility] [address] [id number] [address] [place] [address] Apr, Dental examination Z01.20 [facility] [address] [id number] [address] [place] [phone] 05 Apr, 2017 Dental examination Z01.20 [facility] [place] [address] [id number] [address] [place] [phone] Mar, Dyspepsia R10.13 [facility] [place], [facility] [address] [id number] [address] [place] [phone] Mar, Generalized anxiety disorder F41.1 [facility] [address] [id number] [id number] [place] [phone] Mar, Encounter for dental examina tion Z01.20 [facility] [address] [id number] [address] [place] [id number] Mar, [facility] [address] [id number] [address] [place] [id number] Mar, Dental examination Z01.20 [facility] [place], [facility] [address] [id number] [address] [place] [phone] Feb, Hypertension I10 and Tachyca rdia R00.0 [facility] [address] [id number] [address] [place] [phone] Feb, [facility] [place], [facility] [address] [id number] [address] [place] [phone] Feb, Generalized anxiety disorder F41.1 [facility] [address] [id number] [address] [place] [id number] Feb, Dental examination Z01.20 [facility] [place], [facility] [address] [id number] [address] [place] [phone] Jan, Generalized anxiety disorder F41.1 [facility] [place], [facility] [address] [id number] [address] [place] [phone] December, Generalized anxiety disorder F41.1 [facility] [address] [id number] [address] [place] [id number] December, Encounter for dental examina tion Z01.20 [facility] [place], [facility] [address] [id number] [address] [place], [place] [id number] Nov, [facility] [place] [address] [id number] [address] [place] [id number] Nov, [facility] [place] [address] [id number] [address] [place] [id number] Nov, Generalized anxiety disorder F41.1 [facility] [place] [address] [id number] [address] [place] [phone] Oct, [facility] [address] [id number] [address] [place] [address] [id number] 29 Oct, 2016 Dental examination Z01.20 [place] [address] [address] 27 Oct, 2016 Vaginal dryness N89.8 [place] [address] [place] [id number] [address] [place] [address] Oct, Pseudoseizures F44.5 [place] [address] [address] Oct, Generalized anxiety disorder F41.1 [place] [address] [address] Sep, Abnormal uterine bleeding (A UB) N93.9 ; Vaginal dryness N89.8 and Screening breast examination Z12.39 [place] [address] [address] Sep, Dental examination Z01.20 [place] [address] [address] Sep, Generalized anxiety disorder F41.1 [place] [address] [address] 06 Sep, 2016 Unspecified ovarian cyst, ri ght side N83.201 ; Unspecified ovarian cyst, left side N83.202 ; Yeast infection of the vagina B37.3 ; Mitral valve prolapse I34.1 and Hypertension I10 [place] [id number] [place] [address] Aug, Generalized anxiety disorder F41.1 [place] [address] [place] [id number] [address] [place] [address] Jul, [place] [address] [address] Jul, Generalized anxiety disorder F41.1 [place] [address] [id number] Jun, Generalized anxiety disorder F41.1 [facility] [place] [address] [facility] [id number] [address] [place] [id number] 28 May, 2016 Encounter for immunization Z 23 [facility] [place] [address] [id number] [address] [place] [id number] 17 May, 2016 Generalized anxiety disorder F41.1 and Depressive disorder, not elsewhere classified F32.9 [facility] [place] [address] [id number] [address] [place] [id number] 28 Apr, 2016 Hypertension I10 [facility] [place] [address] [id number] [address] [place] [id number] 22 Apr, 2016 Cervicalgia M54.2 [facility] [address] [id number] [address] [place] [id number] 12 Apr, 2016 Cervicalgia M54.2 [facility] [place] [address] [facility] [id number] [address] [place] [phone] Mar, Generalized anxiety disorder F41.1 and Depressive disorder, not elsewhere classified F32.9 [facility] [address] [id number] [address] [place] [address] [id number] 14 Feb, 2016 Visit for dental examination Z01.20 [facility] [place] [address] [facility] [id number] [address] [place] [phone] 11 Feb, 2016 Pseudoseizures F44.5 ; Migra ine without status migrainosus, not intractable, unspecified migraine type G43.909 and Essential hypertension I10 [facility] [address] [id number] [address] [place] [id number] 06 Feb, 2016 Dental examination Z01.20 [facility] [place] [address] [id number] [address] [place] [id number] Feb, Generalized anxiety disorder F41.1 and Depressive disorder, not elsewhere classified F32.9 [facility] [place] [address] [id number] [address] [place] [phone] Jan, Tachycardia R00.0 [facility] [place] [address] [id number] [address] [place] [phone] December, Eustachian tube dysfunction, bilateral H69.83 [place] [address] N [facility] [id number] [address] [place] [id number] December, Generalized anxiety disorder F41.1 and Depressive disorder, not elsewhere classified F32.9 [facility] [place] [address] [facility] [id number] [address] [place] [id number] Nov, [place] [address] [place] [id number] [address] [place] [phone] Nov, [place] [address] [facility] [id number] [address] [place] [phone] Nov, Hypertension I10 ; Onychomyc osis B35.1 [...] Complex cyst of left ovary N83.29 [facility] [place] [address] [facility] [id number] [address] [place] [id number] 14 Nov, 2015 Sinusitis J32.9 [facility] [place] [address] [facility] [id number] [address] [place] [phone] Oct, Complex cyst of left ovary N 83.29 [facility] [place] [address] [facility] [id number] [address] [place] [phone] Oct, Onychomycosis B35.1 [facility] [address] [id number] [address] [place] [address] [id number] Oct, Dental examination Z01.20 [facility] [place] [address] [facility] [id number] [address] [place] [phone] Oct, Well woman exam Z01.419 ; En [...] R92.2 and History of colon polyps Z86.010 [place] [address] [facility] [id number] [address] [place] [phone] 03 Oct, 2015 Generalized anxiety disorder F41.1 and Depressive disorder, not elsewhere classified F32.9 [place] [address] [place] [id number] [address] [place] [id number] 22 Sep, 2015 Hypertension I10 and Onychom ycosis B35.1 [place] [address] [place] [id number] [address] [place] [id number] Sep, Skin tags, multiple acquired L91.8 [place] [address] [facility] [id number] [address] [place] [id number] Aug, [place] [address] [place] [id number] [address] [place] [phone] Aug, [place] [address] [place] [id number] [address] [place] [id number] Aug, [place] [address] [facility] [id number] [address] [place] [phone] Aug, Generalized anxiety disorder F41.1 and Depressive disorder, not elsewhere classified F32.9 [place] [address] [facility] [id number] [address] [place] [phone] Jul, Skin lesion L98.9 [place] [address] [facility] [id number] [address] [place] [phone] Jun, Generalized anxiety disorder F41.1 and Depressive disorder, not elsewhere classified F32.9 [place] [address] [place] [id number] [address] [place] [phone] Jun, [facility] [place] [address] [id number] [address] [place] [phone] Jun, Generalized anxiety disorder F41.1 [facility] [place] [address] [id number] [address] [place] [id number] May, Encounter for immunization Z 23 and Right shoulder pain M25.511 [facility] [place] [address] [id number] [address] [place] [id number] Apr, [facility] [place] [address] [id number] [address] [place] [phone] 14 Apr, 2015 Generalized anxiety disorder 300.02 and Depressive disorder, not elsewhere classified 311 [facility] [address] [id number] [address] [place] [address] [id number] Mar, Dental examination V72.2 [facility] [place] [address] [id number] [address] [place] [phone] Mar, Generalized anxiety disorder 300.02 and Depressive disorder, not elsewhere classified 311 [facility] [place] [address] [id number] [address] [place] [phone] Mar, Depression, major, recurrent , 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.35 and 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 [facility] [place] [address] [id number] [address] [place] [id number] Feb, Generalized anxiety disorder 300.02 and Depressive disorder, not elsewhere classified 311 [facility] [address] [id number] [address] [place] [address] [id number] Feb, Dental examination V72.2 [facility] [place] [address] [id number] [address] [place] [phone] Jan, Generalized anxiety disorder 300.02 and Depressive disorder, not elsewhere classified 311 [facility] [place] [address] [id number] [address] [place] [phone] Jan, [facility] [place] [address] [id number] [address] [place] [phone] December, Generalized anxiety disorder 300.02 and Depressive disorder, not elsewhere classified 311 [facility] [place] [address] [facility] [id number] [address] [place] [phone] December, Major depressive disorder, r ecurrent, unspecified 296.30 and Panic disorder with agoraphobia 300.21 [facility] [place] [address] [facility] [id number] [address] [place] [phone] 14 Nov, 2014 [facility] [place] [address] [facility] [id number] [address] [place] [phone] Nov, [facility] [place] [address] [facility] [id number] [address] [place] [phone] Oct, [facility] [place] [address] [facility] [id number] [address] [place] [phone] Oct, [facility] [place] [address] [facility] [id number] [address] [place] [phone] Oct, [facility] [place] [address] [facility] [id number] [address] [place] [phone] Oct, [facility] [place] [address] [facility] [id number] [address] [place] [id number] Sep, [facility] [place] [address] [facility] [id number] [address] [place] [id number] Sep, [facility] [place] [address] [facility] [id number] [address] [place] [phone] Sep, [facility] [place] [address] [facility] [id number] [address] [place] [phone] Sep, [facility] [place] [address] [facility] [id number] [address] [place] [phone] Sep, [facility] [place] [address] [facility] [id number] [address] [place] [phone] Sep, [facility] [place] [address] [facility] [id number] [address] [place] [phone] Sep, 2014 [facility] [address] [id number] [address] [place] [address], [place] [address] Sep, 2014 [facility] [address] [id number] [address] [place] [address], [place] [id number] Sep, 2014 [facility] [address] [id number] [address] [place] [address], [place] [phone] Sep, [facility] [address] [id number] [address] [place] [address], [place] [address] Aug, [facility] [address] [id number] [address] [place] [address], [place] [id number] Aug, [facility] [address] [id number] [address] [place] [address], [place] [address] Jul, [facility] [address] [id number] [address] [place] [address], [place] [address] Jul, [facility] [address] [id number] [address] [place] [address], [place] [address] Jul, [facility] [address] [id number] [address] [place] [address], [place] [address] Jul, [facility] [address] [id number] [address] [place] [address], [place] [id number] Jul, [facility] [address] [id number] [address] [place] [address], [place] [address] Jul, [facility] [address] [id number] [address] [place] [address], [place] [id number] 05 Jul, 2014 [facility] [address] [id number] [address] [place] [address], [place] [id number] 05 Jul, 2014 [facility] [address] [id number] [address] [place] [address], [place] [id number] 04 Jul, 2014 [facility] [address] [id number] [address] [place] [address], [place] [address] Jul, [facility] [address] [id number] [address] [place] [address], [place] [address] Jul, [facility] [address] [id number] [address] [place] [address], [place] [address] Jul, [facility] [address] [id number] [address] [place] [address], [place] [address] Jun, [facility] [address] [id number] [address] [place] [address], [place] [address] Jun, [facility] [address] [id number] [address] [place] [address], [place] [address] May, [facility] [address] [id number] [address] [place] [address], [place] [address] May, [facility] [address] [id number] [address] [place] [address], [place] [address] May, [facility] [address] [id number] [address] [place] [address], [place] [address] May, [facility] [address] [id number] [address] [place] [address], [place] [address] May, [facility] [address] [id number] [address] [place] [address], [place] [address] May, [facility] [address] [id number] [address] [place] [address], [place] [address] May, [facility] [address] [id number] [address] [place] [address], [place] [address] May, [facility] [address] [id number] [address] [place] [address], [place] [id number] May, [facility] [address] [id number] [address] [place] [address], [place] [address] May, [facility] [address] [id number] [address] [place] [address], [place] [address] May, [facility] [address] [id number] [address] [place] [address], [place] [address] May, [facility] [address] [id number] [address] [place] [address], [place] [address] Apr, [facility] [address] [id number] [address] [place] [address], [place] [address] Apr, [facility] [address] [id number] [address] [place] [address], [place] [address] Apr, [facility] [address] [id number] [address] [place] [address], [place] [address] Apr, [facility] [address] [id number] [address] [place] [address], [place] [address] Apr, [facility] [address] [id number] [address] [place] [address], [place] [address] Apr, [facility] [address] [id number] [address] [place] [address], [place] [address] Feb, [facility] [address] [id number] [address] [place] [address], [place] [address] Feb, [facility] [address] [id number] [address] [place] [address], [place] [address] Feb, [facility] [address] [id number] [address] [place] [address], [place] [address] Feb, [facility] [address] [id number] [address] [place] [address], [place] [address] Feb, [facility] [address] [id number] [address] [place] [address], [place] [address] Feb, [facility] [address] [id number] [address] [place] [address], [place] [address] Jan, [facility] [address] [id number] [address] [place] [address], [place] [address] Jan, [facility] [address] [id number] [address] [place] [address], [place] [address] Jan, [facility] [address] [id number] [address] [place] [address], [place] [address] Jan, [facility] [address] [id number] [address] [place] [address], [place] [address] Jan, [facility] [address] [id number] [address] [place] [address], [place] [address] Jan, [facility] [address] [id number] [address] [place] [address], [place] [address] Jan, [facility] [address] [id number] [address] [place] [address], [place] [address] Jan, [facility] [address] [id number] [address] [place] [address], [place] [address] December, [facility] [address] [id number] [address] [place] [address], [place] [address] December, [facility] [address] [id number] [address] [place] [address], [place] [address] December, [facility] [address] [id number] [address] [place] [address], [place] [address] December, [facility] [address] [id number] [address] [place] [address], [place] [address] Nov, [facility] [address] [id number] [address] [place] [address], [place] [address] Nov, [facility] [address] [id number] [address] [place] [address], [place] [address] Nov, [facility] [address] [id number] [address] [place] [address], [place] [address] Nov, [facility] [address] [id number] [address] [place] [address], [place] [address] Nov, [facility] [address] [id number] [address] [place] [address], [place] [address] Nov, [facility] [address] [id number] [address] [place] [address], [place] [address] Nov, [facility] [address] [id number] [address] [place] [address], [place] [address] Nov, [facility] [address] [id number] [address] [place] [address], [place] [address] Oct, [facility] [address] [id number] [address] [place] [address], [place] [address] Oct, [facility] [address] [id number] [address] [place] [address], [place] [address] Sep, [facility] [address] [id number] [address] [place] [address], [place] [address] Sep, [facility] [address] [id number] [address] [place] [address], [place] [id number] Sep, [facility] [address] [id number] [address] [place] [address], [place] [address] Sep, [facility] [address] [id number] [address] [place] [address], [place] [address] Sep, [facility] [address] [id number] [address] [place] [address], [place] [address] Sep, [facility] [address] [id number] [address] [place] [address], [place] [id number] Aug, [facility] [address] [id number] [address] [place] [address], [place] [id number] Aug, [facility] [address] [id number] [address] [place] [address], [place] [id number] Aug, [facility] [address] [id number] [address] [place] [address], [place] [id number] Aug, [facility] [address] [id number] [address] [place] [address], [place] [id number] Jul, [facility] [address] [id number] [address] [place] [address], [place] [id number] Jul, [facility] [address] [id number] [address] [place] [address], [place] [id number] Jul, [facility] [address] [id number] [address] [place] [address], [place] [id number] Jul, [facility] [address] [id number] [address] [place] [address], [place] [id number] Jun, [facility] [address] [id number] [address] [place] [address], [place] [id number] Jun, [facility] [address] [id number] [address] [place] [address], [place] [id number] May, [facility] [address] [id number] [address] [place] [address], [place] [id number] May, [facility] [address] [id number] [address] [place] [address], [place] [id number] May, [facility] [address] [id number] [address] [place] [address], [place] [id number] May, [facility] [address] [id number] [address] [place] [address], [place] [id number] May, [facility] [address] [id number] [address] [place] [address], [place] [id number] Apr, [facility] [address] [id number] [address] [place] [address], [place] [id number] Apr, [facility] [address] [id number] [address] [place] [address], [place] [id number] Mar, [facility] [address] [id number] [address] [place] [address], [place] [id number] Mar, [facility] [address] [id number] [address] [place] [address], [place] [id number] Mar, [facility] [address] [id number] [address] [place] [address], [place] [id number] Mar, [facility] [address] [id number] [address] [place] [address], [place] [id number] Feb, [facility] [address] [id number] [address] [place] [address], [place] [id number] 17 Feb, 2013 [facility] [address] [id number] [address] [place] [address], [place] [id number] 16 Feb, 2013 [facility] [address] [id number] [address] [place] [address], [place] [id number] Feb, [facility] [address] [id number] [address] [place] [address], [place] [id number] Feb, [facility] [address] [id number] [address] [place] [address], [place] [id number] Jan, [facility] [address] [id number] [address] [place] [address], [place] [id number] Jan, [facility] [address] [id number] [address] [place] [address], [place] [id number] Jan, [facility] [address] [id number] [address] [place] [address], [place] [id number] Jan, [facility] [address] [id number] [address] [place] [address], [place] [id number] Jan, [facility] [address] [id number] [address] [place] [address], [place] [id number] December, [facility] [address] [id number] [address] [place] [address], [place] [id number] December, [facility] [address] [id number] [address] [place] [address], [place] [id number] Nov, [facility] [address] [id number] [address] [place] [address], [place] [address] Nov, [facility] [address] [id number] [address] [place] [address], [place] [address] Oct, [facility] [address] [id number] [address] [place] [address], [place] [id number] Oct, [facility] [address] [id number] [address] [place] [address], [place] [id number] 05 Oct, 2012 [facility] [address] [id number] [address] [place] [address], [place] [id number] 14 Sep, 2012 [facility] [address] [id number] [address] [place] [address], [place] [id number] 24 Aug, 2012 [facility] [address] [id number] [address] [place] [address], [place] [id number] 16 Aug, 2012 [facility] [address] [id number] [address] [place] [address], [place] [address] Aug, [facility] [address] [id number] [address] [place] [address], [place] [address] Aug, [facility] [address] [id number] [address] [place] [address], [place] [address] Jul, [facility] [address] [id number] [address] [place] [address], [place] [id number] Jul, [facility] [address] [id number] [address] [place] [address], [place] [address] Jul, [facility] [address] [id number] [address] [place] [address], [place] [id number] Jul, [facility] [address] [id number] [address] [place] [address], [place] [id number] Jul, [facility] [address] [id number] [address] [place] [address], [place] [address] Jul, [facility] [address] [id number] [address] [place] [address], [place] [address] Jul, [facility] [address] [id number] [address] [place] [address], [place] [id number] Jul, [facility] [address] [id number] [address] [place] [address], [place] [id number] Jun, [facility] [address] [id number] [address] [place] [address], [place] [address] Jun, [facility] [address] [id number] [address] [place] [id number] Jun, [facility] [address] [id number] [address] [place] [address], [place] [address] Jun, [facility] [address] [id number] [address] [place] [id number] Jun, [facility] [address] [id number] [address] [place] [address], [place] [id number] Jun, [facility] [address] [id number] [address] [place] [address], [place] [id number] May, [facility] [address] [id number] [address] [place] [address], [place] [id number] May, [facility] [address] [id number] [address] [place] [address], [place] [id number] May, [facility] [address] [id number] [address] [place] [address], [place] [address] May, [facility] [address] [id number] [address] [place] [address], [place] [address] Apr, [facility] [address] [id number] [address] [place] [address], [place] [id number] 06 Apr, 2012 [facility] [address] [id number] [address] [place] [address], [place] [address] Mar, [facility] [address] [id number] [address] [place] [address], [place] [id number] 28 Jan, 2012 [facility] [address] [id number] [address] [place] [id number] 20 Jan, 2012 [facility] [address] [id number] [address] [place] [address], [place] [id number] 16 Jan, 2012 [facility] [address] [id number] [address] [place] [address], [place] [id number] 15 Jan, 2012 [facility] [address] [id number] [address] [place] [address], [place] [address] 14 Jan, 2012 [facility] [address] [id number] [address] [place] [address], [place] [id number] 14 Jan, 2012 [facility] [address] [id number] [address] [place] [address], [place] [address] Jan, [facility] [address] [id number] [address] [place] [address], [place] [address] December, [facility] [address] [id number] [address] [place] [address], [place] [address] December, [facility] [address] [id number] [address] [place] [address], [place] [id number] December, [facility] [address] [id number] [address] [place] [address], [place] [id number] December, [facility] [address] [id number] [address] [place] [address], [place] [id number] Nov, [facility] [address] [id number] [address] [place] [address], [place] [id number] Nov, [facility] [address] [id number] [address] [place] [address], [place] [address] Oct, [facility] [address] [id number] [address] [place] [address], [place] [id number] Oct, [facility] [address] [id number] [address] [place] [address], [place] [address] Oct, [facility] [address] [id number] [address] [place] [address], [place] [id number] Sep, [facility] [address] [id number] [address] [place] [address], [place] [id number] Sep, [facility] [address] [id number] [address] [place] [address], [place] [id number] Sep, [facility] [address] [id number] [address] [place] [address], [place] [address] Aug, [facility] [address] [id number] [address] [place] [address], [place] [address] Aug, [facility] [address] [id number] [address] [place] [address], [place] [address] Aug, [facility] [address] [id number] [address] [place] [address], [place] [address] Aug, [facility] [address] [id number] [address] [place] [address], [place] [address] Aug, [facility] [address] [id number] [address] [place] [address], [place] [address] Aug, [facility] [address] [id number] [address] [place] [address], [place] [address] Aug, [facility] [address] [id number] [address] [place] [address], [place] [address] Jul, [facility] [address] [id number] [address] [place] [address], [place] [id number] Jul, [facility] [address] [id number] [address] [place] [address], [place] [address] 30 Jun, 2011 [facility] [address] [id number] [address] [place] [address], [place] [address] 28 Jun, 2011 [facility] [address] [id number] [address] [place] [address], [place] [id number] 17 Jun, 2011 [facility] [address] [id number] [address] [place] [address], [place] [address] 15 Jun, 2011 [facility] [address] [id number] [address] [place] [address], [place] [id number] 14 Jun, 2011 [facility] [address] [id number] [address] [place] [address], [place] [address] 14 Jun, 2011 [facility] [address] [id number] [address] [place] [address], [place] [id number] 07 Jun, 2011 [facility] [address] [id number] [address] [place] [address], [place] [id number] 07 Jun, 2011 [facility] [address] [id number] [address] [place] [address], [place] [address] Jun, [facility] [address] [id number] [address] [place] [address], [place] [address] Jun, [facility] [address] [id number] [address] [place] [address], [place] [address] May, [facility] [address] [id number] [address] [place] [address], [place] [address] May, [facility] [address] [id number] [address] [place] [address], [place] [address] May, [facility] [address] [id number] [address] [place] [address], [place] [address] 24 May, 2011 [facility] [address] [id number] [address] [place] [address], [place] [address] May, [facility] [address] [id number] [address] [place] [address], [place] [address] May, [facility] [address] [id number] [address] [place] [address], [place] [address] Feb, [facility] [address] [id number] [address] [place] [address], [place] [address] December, [facility] [address] [id number] [address] [place] [address], [place] [address] Jul, [facility] [address] [id number] [address] [place] [address], [place] [id number] 29 Jul, 2010 [facility] [address] [id number] [address] [place] [address], [place] [address] Jul, [facility] [address] [id number] [address] [place] [address], [place] [address] Jul, [facility] [address] [id number] [address] [place] [address], [place] [address] 15 Jun, 2010 [facility] [address] [id number] [address] [place] [address], [place] [address] Jul, [facility] [place] [address] [id number] [address] [place] [id number] Jul, [facility] [place] [address] [id number] [address] [place] [id number] Jul, [facility] [place] [address] [id number] [address] [place] [id number] Jul, [facility] [place] [address] [id number] [address] [place] [id number] Jul, [facility] [place] [address] [facility] [id number] [address] [place] [id number] Jul, [facility] [place] [address] [facility] [id number] [address] [place] [id number] Jan, [facility] [place] [address] [facility] [id number] [address] [place] [id number] 16 Sep, 2008 [facility] [place] [address] [facility] [id number] [address] [place] [id number] Sep, IMMUNIZATIONS No Known Immunizations SOCIAL HISTORY Never Assessed REASON FOR VISIT PLAN OF CARE VITAL SIGNS MEDICATIONS Unknown Medications RESULTS No Results PROCEDURES Procedure Date Ordered Result Body Site PSYTX PT&/FAMILY 45 MINUTES Aug 24, 2013 INSTRUCTIONS MEDICATIONS ADMINISTERED No Known Medications [...]
--- OUTSIDE RECORDS SUMMARY | 2020-01-27 10:06 | XMS REPORT ---
Author Author Silvia Reilly Organization [facility] Address [address] [place] [address] Care Team Providers Care Last Marker Name Role Phone EDUARDO Reilly Unavailable PROBLEMS Type Condition ICD9-CM Code [id number] Code Onset Dates Condition S tatus SNOMED Code Problem Hypertension I10 Active 3162182 3 Problem Generalized anxiety disorder F41.1 A ctive 910826649 Problem History of colon polyps Z86.010 Active 400235902 Problem History of diverticulitis Z87.19 Acti ve [id number] Problem Family history of diabetes mellitus Z83.3 Active 265694989 Problem Excessive and frequent menstruation with irregular cycle N92.1 Active 996947890 Problem Hot flashes N95.1 Active 14506278 8 Problem Gastroesophageal reflux disease with esophagitis K 21.0 Active 626603077 Problem History of ovarian cyst Z87.42 Active 19061378 Problem Diverticulitis K57.92 Active 89777 6006 Problem Dense breast tissue R92.2 Active 862752084 Problem Perimenopausal N95.1 Active 72420 1598241201 Problem Mitral valve prolapse I34.1 Active 758055222 Problem Abnormal uterine bleeding (AUB) N93.9 Active [id number] Problem Tachycardia R00.0 Active 1741460 ALLERGIES No Information ENCOUNTERS Encounter Location Date Diagnosis [facility] [address] [id number] [place] [address] 16 Nov, 2019 [facility] [address] [facility] [place] [address] 30 Oct, 2019 [facility] [address] [facility] [place] [address] 16 Oct, 2019 Acute non-recurrent sinusitis, unspecifi ed location J01.90 [facility] [address] [facility] [id number] [place] [address] Oct, Acute non-recurrent frontal sinusitis J01.10 [facility] [id number] [place] [address] 27 Sep, 2019 Generalized anxiety disorder F41.1 and B ereavement Z63.4 [facility] [id number] [place] [address] 17 Sep, 2019 [place] [address] [address] Sep, Generalized anxiety disorder F41.1 and B ereavement Z63.4 [place] [address] [address] Aug, Generalized anxiety disorder F41.1 and B ereavement Z63.4 [place] [id number] [place] [address] Aug, Generalized anxiety disorder F41.1 [place] [address] [address] Aug, Viral upper respiratory tract infection J06.9 [place] [address] [address] Jul, Generalized anxiety disorder F41.1 and B ereavement Z63.4 [place] [id number] [place] [address] Jul, Acute non-recurrent frontal sinusitis J0 1.10 [facility] [address] [facility] [id number] [address] [place] [address] Jul, [facility] [address] [place] [id number] [place] [address] Jul, Sore throat J02.9 and Uvulit is K12.2 [facility] [id number] [place] [address] Jul, Generalized anxiety disorder F41.1 [facility] [address] [place] [id number] [place] [address] Jul, Caries K02.9 [facility] [address] [address] Jun, Generalized anxiety disorder F41.1 [facility] [address] [address] Jun, Generalized anxiety disorder F41.1 and B ereavement Z63.4 [place] [address] [address] May, Generalized anxiety disorder F41.1 [facility] [address] [facility] [id number] [address] [place] [address] May, Dysuria R30.0 [place] [address] [address] May, Generalized anxiety disorder F41.1 and B ereavement Z63.4 [place] [address] [address] May, [facility] [address] [address] Apr, Generalized anxiety disorder F41.1 and B ereavement Z63.4 [place] [address] [address] Apr, Generalized anxiety disorder F41.1 [facility] [address] [facility] [place] [address] Mar, Caries K02.9 ; Dental examin ation Z01.20 ; Periodontitis K05.30 and Oral health maintenance status requiring routine preventive dental care K08.9 [place] [address] [address] Mar, Generalized anxiety disorder F41.1 [facility] [address] [address] Mar, Gastrointestinal hemorrhage associated w ith gastroduodenitis K29.91 [place] [address] [address] Mar, Generalized anxiety disorder F41.1 and B ereavement Z63.4 [facility] [address] [address] Mar, [facility] [address] [address] Mar, [facility] [address] [address] Mar, [facility] [address] [address] Mar, Tachycardia R00.0 and Essential hyperten boone I10 [facility] [address] [address] Feb, Generalized anxiety disorder F41.1 [place] [address] [address] Feb, Generalized anxiety disorder F41.1 and B ereavement Z63.4 [facility] [address] [address] Feb, Generalized anxiety disorder F41.1 [place] [address] [address] Feb, Generalized anxiety disorder F41.1 and B ereavement Z63.4 [facility] [address] [address] Jan, [facility] [address] [address] Jan, Breast cancer screening by mammogram Z12 .31 [facility] [address] [address] Jan, Generalized anxiety disorder F41.1 and B ereavement Z63.4 [facility] [address] [address] Jan, [facility] [address] [address] December, Generalized anxiety disorder F41.1 and B ereavement Z63.4 [facility] [address] [address] December, Diverticulitis K57.92 ; Dysuria R30.0 ; Other constipation K59.09 and Lower abdominal pain R10.30 [facility] [address] [facility] [id number] [address] [place] [address] Nov, Diverticulitis K57.92 [facility] [address] [address] Nov, Generalized anxiety disorder F41.1 and B ereavement Z63.4 [place] [address] [address] Nov, Generalized anxiety disorder F41.1 and B ereavement Z63.4 [place] [address] [address] Nov, Diverticulitis K57.92 [facility] [address] [id number] [address] [place] [address] Oct, Diverticulitis K57.92 [place] [address] [address] Oct, Diverticulitis K57.92 [place] [address] [address] Oct, Generalized anxiety disorder F41.1 [facility] [address] [place] [id number] [address] [place] [address] Oct, Right lower quadrant abdomin al pain R10.31 and Diverticulitis K57.92 [place] [address] [address] Sep, Generalized anxiety disorder F41.1 and B ereavement Z63.4 [place] [address] [address] Aug, [place] [address] [address] Aug, Generalized anxiety disorder F41.1 and B ereavement Z63.4 [facility] [address] [address] Aug, Caries K02.9 [facility] [address] [address] Jul, Generalized anxiety disorder F41.1 and B ereavement Z63.4 [facility] [address] [address] Jul, Other acute gastritis without hemorrhage K29.00 ; Generalized anxiety disorder F41.1 ; Tachycardia R00.0 and Essential hypertension I10 [place] [address] [address] Jul, Generalized anxiety disorder F41.1 and B ereavement Z63.4 [place] [address] [address] Jun, Generalized anxiety disorder F41.1 and B ereavement Z63.4 [place] [address] [address] Jun, Generalized anxiety disorder F41.1 and B ereavement Z63.4 [facility] [address] [place] [address] Jun, Dental examination Z01.20 [place] [address] [address] May, Generalized anxiety disorder F41.1 and B ereavement Z63.4 [place] [address] [address] May, Encounter for immunization Z23 [place] [address] [address] May, Generalized anxiety disorder F41.1 and B ereavement Z63.4 [place] [address] [address] May, [facility] [address] [facility] [place] [address] 24 Apr, 2018 Generalized anxiety disorder F41.1 and B ereavement Z63.4 [facility] [address] [facility] [place] [address] 17 Apr, 2018 [facility] [address] [facility] [place] [address] Apr, Diverticulitis K57.92 [facility] [address] [facility] [place] [address] Apr, Generalized anxiety disorder F41.1 and B ereavement Z63.4 [facility] [address] [facility] [id number] [place] [address] Mar, [facility] [address] [facility] [id number] [address] [place] [address] Mar, Diverticulitis K57.92 [facility] [address] [facility] [place] [address] Mar, Generalized anxiety disorder F41.1 and B ereavement Z63.4 [facility] [id number] [place] [address] Mar, Hypertension I10 [facility] [address] [facility] [place] [address] Mar, Generalized anxiety disorder F41.1 and B ereavement Z63.4 [facility] [address] [facility] [place] [address] Feb, Generalized anxiety disorder F41.1 and B ereavement Z63.4 [facility] [id number] [place] [address] Feb, [facility] [address] [facility] [place] [address] Feb, Generalized anxiety disorder F41.1 and B ereavement Z63.4 [facility] [address] [address] Feb, Generalized anxiety disorder F41.1 and B ereavement Z63.4 [facility] [address] [address] Jan, Hypertension I10 and Acute non-recurrent maxillary sinusitis J01.00 [facility] [address] [address] December, [facility] [address] [address] December, Hypertension I10 [facility] [address] [address] December, Generalized anxiety disorder F41.1 [facility] [address] [place] [address] Oct, Encounter for dental examina tion Z01.20 [facility] [address] [place] [address] Oct, Encounter for dental examina tion Z01.20 [facility] [address] [place] [address] Oct, Dental examination Z01.20 [place] [address] [address] Oct, Generalized anxiety disorder F41.1 [facility] [address] [place] [address] Aug, Dental examination Z01.20 [facility] [address] [address] Aug, Generalized anxiety disorder F41.1 [place] [address] [address] Aug, [facility] [address] [place] [address] Aug, Encounter for dental examina tion Z01.20 [facility] [address] [address] Aug, Subacute maxillary sinusitis J01.00 [facility] [address] [address] 22 Jul, 2017 Dental examination Z01.20 [facility] [address] [address] 19 Jul, 2017 Generalized anxiety disorder F41.1 [facility] [address] [address] Jul, Diverticulitis K57.92 [facility] [address] [address] 28 Jun, 2017 Encounter for immunization Z23 [facility] [address] [address] Jun, Dental examination Z01.20 [facility] [address] [address] 14 Jun, 2017 Generalized anxiety disorder F41.1 [facility] [address] [place] [id number] [place] [address] 07 Jun, 2017 Dental examination Z01.20 [facility] [address] [address] May, [facility] [address] [facility] [place] [id number] May, Dental examination Z01.20 [facility] [address] [id number] May, Dental examination Z01.20 [facility] [address] [place] [id number] [place] [address] May, Dental examination Z01.20 [facility] [address] [address] May, [facility] [address] [address] May, Generalized anxiety disorder F41.1 [facility] [address] [address] May, Localized edema R60.0 ; Yeast vaginitis B37.3 and Gastroesophageal reflux disease with esophagitis K21.0 [facility] [address] [id number] Apr, Dental examination Z01.20 [facility] [address] [address] Apr, Dental examination Z01.20 [facility] [address] [address] 05 Apr, 2017 Dental examination Z01.20 [facility] [address] [address] Mar, Dyspepsia R10.13 [facility] [address] [address] Mar, Generalized anxiety disorder F41.1 [facility] [address] [place] [address] Mar, Encounter for dental examina tion Z01.20 [facility] [address] [id number] Mar, [facility] [address] [id number] Mar, Dental examination Z01.20 [facility] [address] [address] Feb, Hypertension I10 and Tachycardia R00.0 [facility] [address] [address] Feb, [facility] [address] [address] Feb, Generalized anxiety disorder F41.1 [facility] [address] [id number] Feb, Dental examination Z01.20 [facility] [address] [address] Jan, Generalized anxiety disorder F41.1 [facility] [address] [address] December, Generalized anxiety disorder F41.1 [facility] [address] [id number] December, Encounter for dental examination Z01.20 [facility] [address] [address] Nov, [facility] [address] [address] Nov, [facility] [address] [address] Nov, Generalized anxiety disorder F41.1 [facility] [address] [address] Oct, [facility] [address] [id number] Oct, Dental examination Z01.20 [facility] [address] [address] Oct, Vaginal dryness N89.8 [facility] [address] [address] Oct, Pseudoseizures F44.5 [place] [address] [address] Oct, Generalized anxiety disorder F41.1 [facility] [address] [address] Sep, Abnormal uterine bleeding (AUB) N93.9 ; Vaginal dryness N89.8 and Screening breast examination Z12.39 [facility] [address] [address] Sep, Dental examination Z01.20 [facility] [address] [address] Sep, Generalized anxiety disorder F41.1 [facility] [address] [address] 06 Sep, 2017 Unspecified ovarian cyst, right side N83 .201 ; Unspecified ovarian cyst, left side N83.202 ; Yeast infection of the vagina B37.3 ; Mitral valve prolapse I34.1 and Hypertension I10 [facility] [address] [address] Aug, Generalized anxiety disorder F41.1 [facility] [address] [address] Jul, [facility] [address] [address] Jul, Generalized anxiety disorder F41.1 [facility] [address] [address] Jun, Generalized anxiety disorder F41.1 [facility] [address] [address] May, Encounter for immunization Z23 [facility] [address] [address] 17 May, 2016 Generalized anxiety disorder F41.1 and D epressive disorder, not elsewhere classified F32.9 [facility] [address] [address] 28 Apr, 2016 Hypertension I10 [facility] [address] [address] Apr, Cervicalgia M54.2 [facility] [address] [facility] [id number] [address] [place] [address] Apr, Cervicalgia M54.2 [facility] [address] [address] 09 Mar, 2016 Generalized anxiety disorder F41.1 and D epressive disorder, not elsewhere classified F32.9 [facility] [address] [facility] [id number] [place] [id number] Feb, Visit for dental examination Z01.20 [facility] [address] [address] 11 Feb, 2016 Pseudoseizures F44.5 ; Migraine without status migrainosus, not intractable, unspecified migraine type G43.909 and Essential hypertension I10 [facility] [address] [facility] [place] [id number] 06 Feb, 2016 Dental examination Z01.20 [facility] [address] [address] 05 Feb, 2016 Generalized anxiety disorder F41.1 and D epressive disorder, not elsewhere classified F32.9 [place] [address] [address] Jan, Tachycardia R00.0 [place] [address] [address] December, Eustachian tube dysfunction, bilateral H 69.83 [place] [address] [address] December, Generalized anxiety disorder F41.1 and D epressive disorder, not elsewhere classified F32.9 [place] [address] [address] Nov, [place] [address] [address] 28 Nov, 2015 [place] [address] [address] Nov, Hypertension I10 ; Onychomycosis B35.1 ; [...] and Complex cyst of left ovary N83.29 [place] [address] [address] 14 Nov, 2015 Sinusitis J32.9 [place] [address] [address] Oct, Complex cyst of left ovary N83.29 [facility] [address] [address] Oct, Onychomycosis B35.1 [facility] [address] [place] [id number] [place] [id number] 17 Oct, 2015 Dental examination Z01.20 [place] [address] [address] 09 Oct, 2015 Well woman exam Z01.419 [...] R92.2 and History of colon polyps Z86.010 [place] [address] [address] Oct, Generalized anxiety disorder F41.1 and D epressive disorder, not elsewhere classified F32.9 [place] [address] [address] Sep, Hypertension I10 and Onychomycosis B35.1 [place] [address] [address] Sep, Skin tags, multiple acquired L91.8 [place] [address] [address] Aug, [place] [address] [address] Aug, [place] [address] [address] Aug, [facility] [address] [address] Aug, Generalized anxiety disorder F41.1 and D epressive disorder, not elsewhere classified F32.9 [facility] [address] [address] Jul, Skin lesion L98.9 [facility] [address] [address] Jun, Generalized anxiety disorder F41.1 and D epressive disorder, not elsewhere classified F32.9 [facility] [address] [address] Jun, [facility] [address] [address] Jun, Generalized anxiety disorder F41.1 [facility] [address] [address] May, Encounter for immunization Z23 and Right shoulder pain M25.511 [facility] [address] [address] Apr, [facility] [address] [address] Apr, Generalized anxiety disorder 300.02 and Depressive disorder, not elsewhere classified 311 [facility] [address] [facility] [place] [id number] Mar, Dental examination V72.2 [facility] [address] [address] Mar, Generalized anxiety disorder 300.02 and Depressive disorder, not elsewhere classified 311 [facility] [address] [address] Mar, Depression, major, recurrent, 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.35 and 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 [facility] [address] [address] Feb, Generalized anxiety disorder 300.02 and Depressive disorder, not elsewhere classified 311 [facility] [address] [facility] [place] [id number] 07 Feb, 2015 Dental examination V72.2 [facility] [id number] [place] [address] 09 Jan, 2015 Generalized anxiety disorder 300.02 and Depressive disorder, not elsewhere classified 311 [facility] [address] [address] Jan, [facility] [address] [address] December, Generalized anxiety disorder 300.02 and Depressive disorder, not elsewhere classified 311 [facility] [id number] [place] [address] December, Major depressive disorder, recurrent, un specified 296.30 and Panic disorder with agoraphobia 300.21 [facility] [id number] [place] [address] 14 Nov, 2014 [facility] [address] [address] Nov, [facility] [address] [address] Oct, [facility] [address] [address] Oct, [facility] [address] [place] [id number] [place] [address] Oct, [facility] [address] [address] Oct, [facility] [address] [address] Sep, [facility] [address] [address] Sep, [facility] [address] [address] Sep, [facility] [address] [address] Sep, 2014 [facility] [address] [facility] [place] [address] Sep, 2014 [facility] [address] [id number] [place] [address] Sep, 2014 [facility] [address] [id number] [place] [address] Sep, 2014 [facility] [address] [id number] [place] [address] Sep, 2014 [facility] [address] [id number] [place] [address] Sep, [facility] [address] [id number] [place] [address] Sep, 2014 [facility] [address] [id number] [place] [address] Aug, [facility] [address] [id number] [place] [address] Aug, [facility] [address] [id number] [place] [address] Jul, [facility] [address] [id number] [place] [address] Jul, [facility] [address] [id number] [place] [address] Jul, [facility] [address] [id number] [place] [address] Jul, [facility] [address] [id number] [place] [address] Jul, [facility] [address] [id number] [place] [address] Jul, [facility] [address] [id number] [place] [address] Jul, [facility] [address] [id number] [place] [address] 05 Jul, 2014 [facility] [address] [id number] [place] [address] Jul, [facility] [address] [id number] [place] [address] Jul, [facility] [address] [id number] [place] [address] Jul, [facility] [address] [id number] [place] [address] Jul, [facility] [address] [id number] [place] [address] Jun, [facility] [address] [id number] [place] [address] Jun, [facility] [address] [id number] [place] [address] May, [facility] [address] [id number] [place] [address] May, [facility] [address] [id number] [place] [address] May, [facility] [address] [id number] [place] [address] May, [facility] [address] [id number] [place] [address] May, [facility] [address] [id number] [place] [address] May, [facility] [address] [id number] [place] [address] May, [facility] [address] [id number] [place] [address] May, [facility] [address] [id number] [place] [address] May, [facility] [address] [id number] [place] [address] May, [facility] [address] [id number] [place] [address] May, [facility] [address] [facility] [id number] [place] [address] May, [facility] [address] [facility] [id number] [facility] [place] [address] Apr, [facility] [address] [id number] [place] [address] Apr, [facility] [address] [id number] [place] [address] Apr, [facility] [address] [facility] [id number] [facility] [address] Apr, [facility] [address] [id number] [place] [address] Apr, [facility] [address] [id number] [place] [address] Apr, [facility] [address] [id number] [place] [address] Feb, [facility] [address] [id number] [place] [address] Feb, [facility] [address] [id number] [place] [address] Feb, [facility] [address] [id number] [place] [address] Feb, [facility] [address] [id number] [place] [address] Feb, [facility] [address] [id number] [place] [address] Feb, [facility] [address] [id number] [place] [address] Jan, [facility] [address] [id number] [place] [address] Jan, [facility] [address] [id number] [place] [address] Jan, [facility] [address] [id number] [facility] [address] Jan, [facility] [address] [id number] [place] [address] Jan, [facility] [address] [facility] [id number] [place] [address] Jan, [facility] [address] [id number] [place] [address] Jan, [facility] [address] [id number] [place] [address] Jan, [facility] [address] [id number] [place] [address] December, [facility] [address] [id number] [place] [address] December, [facility] [address] [id number] [place] [address] December, [facility] [address] [id number] [place] [address] December, [facility] [address] [id number] [place] [address] Nov, [facility] [address] [id number] [place] [address] Nov, [facility] [address] [id number] [place] [address] Nov, [facility] [address] [id number] [place] [address] Nov, [facility] [address] [id number] [place] [address] Nov, [facility] [address] [id number] [place] [address] Nov, [facility] [address] [id number] [place] [address] Nov, [facility] [address] [id number] [place] [address] Nov, [facility] [address] [id number] [place] [address] Oct, [facility] [address] [id number] [place] [address] Oct, [facility] [address] [id number] [place] [address] Sep, [facility] [address] [id number] [place] [address] Sep, [facility] [address] [facility] [id number] [place] [id number] Sep, [facility] [address] [id number] [place] [address] Sep, [facility] [address] [id number] [place] [address] Sep, [facility] [address] [id number] [place] [address] Sep, [facility] [address] [id number] [place] [address] Aug, [facility] [address] [id number] [place] [address] Aug, [facility] [address] [id number] [place] [address] Aug, [facility] [address] [id number] [place] [address] Aug, [facility] [address] [id number] [place] [address] Jul, [facility] [address] [id number] [place] [address] Jul, [facility] [address] [id number] [place] [address] Jul, [facility] [address] [id number] [place] [address] Jul, [facility] [address] [id number] [place] [address] 08 Jun, 2013 [facility] [address] [facility] [id number] [facility] [address] Jun, [facility] [address] [facility] [id number] [facility] [address] May, [facility] [address] [id number] [place] [address] May, [facility] [address] [facility] [id number] [place] [address] May, [facility] [address] [facility] [id number] [facility] [address] May, [facility] [address] [id number] [place] [address] May, [facility] [address] [id number] [place] [address] Apr, [facility] [address] [id number] [place] [address] Apr, [facility] [address] [facility] [id number] [place] [address] Mar, [facility] [address] [id number] [place] [address] Mar, [facility] [address] [id number] [place] [address] Mar, [facility] [address] [id number] [place] [address] Mar, [facility] [address] [facility] [id number] [place] [address] Feb, [facility] [address] [id number] [place] [address] Feb, [facility] [address] [id number] [place] [address] Feb, [facility] [address] [id number] [place] [address] Feb, [facility] [address] [id number] [place] [address] Feb, [facility] [address] [id number] [place] [address] Jan, [facility] [address] [id number] [place] [address] Jan, [facility] [address] [id number] [place] [address] Jan, [facility] [address] [id number] [place] [address] Jan, [facility] [address] [id number] [place] [address] Jan, [facility] [address] [id number] [place] [address] December, [facility] [address] [id number] [place] [address] December, [facility] [address] [id number] [place] [address] Nov, [facility] [address] [id number] [place] [address] Nov, [facility] [address] [id number] [place] [address] Oct, [facility] [address] [id number] [place] [address] Oct, [facility] [address] [id number] [place] [address] Oct, [facility] [address] [id number] [place] [address] Sep, [facility] [address] [id number] [place] [address] 24 Aug, 2012 [facility] [address] [id number] [place] [address] Aug, [facility] [address] [id number] [place] [address] Aug, [facility] [address] [id number] [place] [address] Aug, [facility] [address] [id number] [place] [address] Jul, [facility] [address] [id number] [place] [address] Jul, [facility] [address] [id number] [place] [address] Jul, [facility] [address] [id number] [place] [address] Jul, [facility] [address] [id number] [place] [address] Jul, [facility] [address] [id number] [place] [address] Jul, [facility] [id number] [place] [address] Jul, [facility] [address] [id number] [place] [address] Jul, [facility] [address] [id number] [place] [address] Jun, [facility] [address] [id number] [place] [address] Jun, [facility] [address] [id number] [place] [address] Jun, [facility] [address] [id number] [place] [address] Jun, [facility] [address] [id number] [place] [address] Jun, [facility] [address] [id number] [place] [address] Jun, [facility] [address] [id number] [place] [address] May, [facility] [address] [id number] [place] [address] May, [facility] [address] [facility] [id number] [facility] [address] May, [facility] [address] [id number] [place] [address] May, [facility] [address] [id number] [place] [address] 26 Apr, 2012 [facility] [address] [id number] [place] [address] 06 Apr, 2012 [facility] [address] [id number] [place] [address] Mar, [facility] [address] [id number] [place] [address] 28 Jan, 2012 [facility] [address] [id number] [place] [address] 20 Jan, 2012 [facility] [address] [id number] [place] [address] 16 Jan, 2012 [facility] [address] [id number] [place] [address] 15 Jan, 2012 [facility] [address] [id number] [place] [address] 14 Jan, 2012 [facility] [address] [id number] [place] [address] 14 Jan, 2012 [facility] [address] [id number] [place] [address] 07 Jan, 2012 [facility] [address] [id number] [place] [address] December, [facility] [address] [id number] [place] [address] December, [facility] [address] [id number] [place] [address] December, [facility] [address] [id number] [place] [address] December, [facility] [address] [id number] [place] [address] Nov, [facility] [address] [id number] [place] [address] Nov, [facility] [address] [id number] [place] [address] Oct, [facility] [address] [id number] [place] [address] Oct, [facility] [address] [id number] [place] [address] Oct, [facility] [address] [id number] [place] [address] Sep, [facility] [address] [id number] [place] [address] Sep, [facility] [address] [id number] [place] [address] Sep, [facility] [address] [id number] [place] [address] Aug, [facility] [address] [id number] [place] [address] Aug, [facility] [address] [id number] [place] [address] Aug, [facility] [address] [id number] [place] [address] Aug, [facility] [address] [id number] [place] [address] Aug, [facility] [address] [id number] [place] [address] Aug, [facility] [address] [id number] [place] [address] Aug, [facility] [address] [id number] [place] [address] Jul, [facility] [address] [id number] [place] [address] Jul, [facility] [address] [id number] [place] [address] Jun, [facility] [address] [id number] [place] [address] 28 Jun, 2011 [facility] [address] [id number] [place] [address] 17 Jun, 2011 [facility] [address] [id number] [place] [address] 15 Jun, 2011 [facility] [address] [id number] [place] [address] 14 Jun, 2011 [facility] [address] [id number] [place] [address] 14 Jun, 2011 [facility] [address] [id number] [place] [address] Jun, [facility] [address] [id number] [place] [address] Jun, [facility] [address] [id number] [place] [address] Jun, [facility] [address] [id number] [place] [address] Jun, [facility] [address] [id number] [place] [address] May, [facility] [address] [id number] [place] [address] 31 May, 2011 [facility] [address] [id number] [place] [address] May, [facility] [address] [id number] [place] [address] 24 May, 2011 [facility] [address] [id number] [place] [address] 18 May, 2011 [facility] [address] [id number] [place] [address] 13 May, 2011 [facility] [id number] [place] [address] 13 Feb, 2011 [facility] [id number] [place] [address] December, [facility] [id number] [place] [address] Jul, [facility] [id number] [place] [address] Jul, [facility] [id number] [place] [address] Jul, [facility] [id number] [place] [address] Jul, [facility] [address] [id number] [place] [address] Jun, [facility] [address] [id number] [place] [address] Jul, [facility] [address] [id number] [place] [address] Jul, [facility] [address] [id number] [place] [address] Jul, [facility] [address] [id number] [place] [address] Jul, [facility] [address] [id number] [place] [address] Jul, [facility] [address] [id number] [place] [address] Jul, [facility] [address] [id number] [place] [address] 15 Jan, 2009 [facility] [id number] [place] [address] 16 Sep, 2008 [facility] [address] [id number] [place] [address] 11 Sep, 2008 IMMUNIZATIONS No Known Immunizations [...]
--- OUTSIDE RECORDS SUMMARY | 2020-01-27 10:07 | XMS REPORT ---
Author Author Silvia MERCHANT Organization [facility] Address [address] [place] [address] Care Team Providers Care Referral Manager Name Role Phone KVNG MERCHANT Unavailable PROBLEMS Type Condition ICD9-CM Code UEB72-QA Code Onset Dates Condition S tatus SNOMED Code Problem Hypertension I10 Active 9129365 3 Problem Generalized anxiety disorder F41.1 A ctive 949316397 Problem History of colon polyps Z86.010 Active 981637303 Problem History of diverticulitis Z87.19 Acti ve [id number] Problem Family history of diabetes mellitus Z83.3 Active 171916090 Problem Excessive and frequent menstruation with irregular cycle N92.1 Active 716266705 Problem Hot flashes N95.1 Active 34638714 8 Problem Gastroesophageal reflux disease with esophagitis K 21.0 Active 065125759 Problem History of ovarian cyst Z87.42 Active 04354964 Problem Diverticulitis K57.92 Active 31936 6006 Problem Dense breast tissue R92.2 Active 853383089 Problem Perimenopausal N95.1 Active 38941 9980532175 Problem Mitral valve prolapse I34.1 Active 798599968 Problem Abnormal uterine bleeding (AUB) N93.9 Active 76533509517006 Problem Tachycardia R00.0 Active 1598387 ALLERGIES No Information ENCOUNTERS Encounter Location Date Diagnosis [facility] [address] [id number] [place] [address] 16 Nov, 2019 [facility] [address] [id number] [place] [address] 30 Oct, 2019 [facility] [address] [id number] [place] [address] 16 Oct, 2019 Acute non-recurrent sinusitis, unspecifi ed location J01.90 [facility] [address] [facility] [id number] [address] [place] [address] Oct, Acute non-recurrent frontal sinusitis J01.10 [place] [address] [address] 27 Sep, 2019 Generalized anxiety disorder F41.1 and B ereavement Z63.4 [place] [address] [place] [id number] [place] [address] 17 Sep, 2019 [place] [address] [address] Sep, Generalized anxiety disorder F41.1 and B ereavement Z63.4 [place] [address] [address] Aug, Generalized anxiety disorder F41.1 and B ereavement Z63.4 [place] [address] [address] Aug, Generalized anxiety disorder F41.1 [place] [address] [address] Aug, Viral upper respiratory tract infection J06.9 [place] [address] [address] Jul, Generalized anxiety disorder F41.1 and B ereavement Z63.4 [place] [address] [address] Jul, Acute non-recurrent frontal sinusitis J0 1.10 [facility] [address] [place] [id number] [address] [place] [address] Jul, [facility] [address] [place] [id number] [address] [place] [address] Jul, Sore throat J02.9 and Uvulit is K12.2 [place] [address] [id number] [place] [address] Jul, Generalized anxiety disorder F41.1 [facility] [address] [place], [place] [id number] [place] [address] Jul, Caries K02.9 [facility] [address] [id number] [place] [address] Jun, Generalized anxiety disorder F41.1 [facility] [address] [address] Jun, Generalized anxiety disorder F41.1 and B ereavement Z63.4 [facility] [address] [address] May, Generalized anxiety disorder F41.1 [facility] [address] [facility] [id number] [address] [place] [address] May, Dysuria R30.0 [place] [address] [address] May, Generalized anxiety disorder F41.1 and B ereavement Z63.4 [place] [address] [address] May, [facility] [address] [address] Apr, Generalized anxiety disorder F41.1 and B ereavement Z63.4 [place] [address] [address] Apr, Generalized anxiety disorder F41.1 [facility] [address] [id number] [place] [address] Mar, Caries K02.9 ; Dental examin ation Z01.20 ; Periodontitis K05.30 and Oral health maintenance status requiring routine preventive dental care K08.9 [place] [address] [address] Mar, Generalized anxiety disorder F41.1 [place] [address] [address] Mar, Gastrointestinal hemorrhage associated w ith gastroduodenitis K29.91 [place] [address] [address] Mar, Generalized anxiety disorder F41.1 and B ereavement Z63.4 [facility] [address] [address] Mar, [facility] [address] [address] Mar, [facility] [address] [address] Mar, [facility] [address] [address] Mar, Tachycardia R00.0 and Essential hyperten boone I10 [facility] [address] [address] Feb, Generalized anxiety disorder F41.1 [facility] [address] [address] Feb, Generalized anxiety disorder F41.1 and B ereavement Z63.4 [facility] [address] [address] Feb, Generalized anxiety disorder F41.1 [facility] [address] [address] Feb, Generalized anxiety disorder F41.1 and B ereavement Z63.4 [facility] [address] [address] Jan, [facility] [address] [address] Jan, Breast cancer screening by mammogram Z12 .31 [facility] [address] [address] Jan, Generalized anxiety disorder F41.1 and B ereavement Z63.4 [facility] [address] [address] Jan, [facility] [address] [address] December, Generalized anxiety disorder F41.1 and B ereavement Z63.4 [facility] [address] [address] December, Diverticulitis K57.92 ; Dysuria R30.0 ; Other constipation K59.09 and Lower abdominal pain R10.30 [facility] [address] [place] [id number] [place] [address] Nov, Diverticulitis K57.92 [place] [address] [address] Nov, Generalized anxiety disorder F41.1 and B ereavement Z63.4 [place] [address] [address] Nov, Generalized anxiety disorder F41.1 and B ereavement Z63.4 [place] [address] [address] Nov, Diverticulitis K57.92 [facility] [address] [place] [id number] [place] [address] Oct, Diverticulitis K57.92 [place] [address] [address] Oct, Diverticulitis K57.92 [place] [address] [address] Oct, Generalized anxiety disorder F41.1 [facility] [address] [place] [id number] [place] [address] Oct, Right lower quadrant abdomin al pain R10.31 and Diverticulitis K57.92 [place] [address] [address] Sep, Generalized anxiety disorder F41.1 and B ereavement Z63.4 [place] [address] [address] Aug, [place] [address] [address] Aug, Generalized anxiety disorder F41.1 and B ereavement Z63.4 [facility] [address] [address] Aug, Caries K02.9 [place] [address] [address] Jul, Generalized anxiety disorder F41.1 and B ereavement Z63.4 [place] [address] [address] Jul, Other acute gastritis without hemorrhage K29.00 ; Generalized anxiety disorder F41.1 ; Tachycardia R00.0 and Essential hypertension I10 [place] [address] [address] Jul, Generalized anxiety disorder F41.1 and B ereavement Z63.4 [place] [address] [address] Jun, Generalized anxiety disorder F41.1 and B ereavement Z63.4 [place] [address] [address] Jun, Generalized anxiety disorder F41.1 and B ereavement Z63.4 [facility] [address] [place] [address] Jun, Dental examination Z01.20 [place] [address] [address] May, Generalized anxiety disorder F41.1 and B ereavement Z63.4 [place] [address] [address] May, Encounter for immunization Z23 [place] [address] [address] May, Generalized anxiety disorder F41.1 and B ereavement Z63.4 [place] [address] [address] May, [facility] [address] [facility] [place] [address] Apr, Generalized anxiety disorder F41.1 and B ereavement Z63.4 [facility] [address] [address] Apr, [facility] [address] [address] Apr, Diverticulitis K57.92 [facility] [address] [address] Apr, Generalized anxiety disorder F41.1 and B ereavement Z63.4 [facility] [address] [facility] [id number] [address] [place] [address] Mar, [facility] [address] [place] [id number] [place] [address] Mar, Diverticulitis K57.92 [facility] [address] [address] Mar, Generalized anxiety disorder F41.1 and B ereavement Z63.4 [place] [address] [address] Mar, Hypertension I10 [facility] [address] [address] Mar, Generalized anxiety disorder F41.1 and B ereavement Z63.4 [facility] [address] [address] Feb, Generalized anxiety disorder F41.1 and B ereavement Z63.4 [place] [address] [address] Feb, [facility] [address] [address] Feb, Generalized anxiety disorder F41.1 and B ereavement Z63.4 [place] [address] [address] Feb, Generalized anxiety disorder F41.1 and B ereavement Z63.4 [facility] [address] [address] Jan, Hypertension I10 and Acute non-recurrent maxillary sinusitis J01.00 [facility] [address] [address] December, [facility] [address] [address] December, Hypertension I10 [facility] [address] [address] December, Generalized anxiety disorder F41.1 [facility] [address] [place] [address] Oct, Encounter for dental examina tion Z01.20 [facility] [address] [place] [address] Oct, Encounter for dental examina tion Z01.20 [facility] [address] [place] [address] Oct, Dental examination Z01.20 [place] [address] [address] Oct, Generalized anxiety disorder F41.1 [facility] [address] [place] [address] Aug, Dental examination Z01.20 [facility] [address] [address] Aug, Generalized anxiety disorder F41.1 [place] [address] [address] Aug, [facility] [address] [place] [address] Aug, Encounter for dental examina tion Z01.20 [place] [address] [address] 08 Aug, 2017 Subacute maxillary sinusitis J01.00 [facility] [address] [address] 22 Jul, 2017 Dental examination Z01.20 [facility] [address] [address] 19 Jul, 2017 Generalized anxiety disorder F41.1 [facility] [address] [address] Jul, Diverticulitis K57.92 [facility] [address] [address] 28 Jun, 2017 Encounter for immunization Z23 [facility] [address] [address] 22 Jun, 2017 Dental examination Z01.20 [facility] [address] [address] 14 Jun, 2017 Generalized anxiety disorder F41.1 [facility] [address] [place] [id number] [place] [address] 07 Jun, 2017 Dental examination Z01.20 [facility] [address] [address] May, [facility] [address] [facility] [place] [id number] May, Dental examination Z01.20 [facility] [address] [facility] [place] [id number] May, Dental examination Z01.20 [facility] [address] [address] May, Dental examination Z01.20 [facility] [address] [address] May, [facility] [address] [address] May, Generalized anxiety disorder F41.1 [facility] [address] [address] May, Localized edema R60.0 ; Yeast vaginitis B37.3 and Gastroesophageal reflux disease with esophagitis K21.0 [facility] [address] [id number] Apr, Dental examination Z01.20 [facility] [address] [address] Apr, Dental examination Z01.20 [facility] [address] [address] Apr, Dental examination Z01.20 [facility] [address] [address] Mar, Dyspepsia R10.13 [facility] [address] [address] Mar, Generalized anxiety disorder F41.1 [facility] [address] [address] Mar, Encounter for dental examina tion Z01.20 [facility] [address] [id number] Mar, [facility] [address] [id number] Mar, Dental examination Z01.20 [facility] [address] [address] Feb, Hypertension I10 and Tachycardia R00.0 [facility] [address] [address] Feb, [facility] [address] [address] Feb, Generalized anxiety disorder F41.1 [facility] [address] [id number] Feb, Dental examination Z01.20 [facility] [address] [address] Jan, Generalized anxiety disorder F41.1 [facility] [address] [address] December, Generalized anxiety disorder F41.1 [facility] [address] [id number] December, Encounter for dental examination Z01.20 [facility] [address] [address] Nov, [facility] [address] [address] Nov, [facility] [address] [address] Nov, Generalized anxiety disorder F41.1 [facility] [address] [address] Oct, [facility] [address] [id number] Oct, Dental examination Z01.20 [facility] [address] [address] Oct, Vaginal dryness N89.8 [facility] [address] [address] Oct, Pseudoseizures F44.5 [facility] [address] [address] Oct, Generalized anxiety disorder F41.1 [facility] [address] [address] Sep, Abnormal uterine bleeding (AUB) N93.9 ; Vaginal dryness N89.8 and Screening breast examination Z12.39 [facility] [address] [address] Sep, Dental examination Z01.20 [facility] [address] [address] Sep, Generalized anxiety disorder F41.1 [place] [address] [place] [id number] [place] [address] 06 Sep, 2016 Unspecified ovarian cyst, right side N83 .201 ; Unspecified ovarian cyst, left side N83.202 ; Yeast infection of the vagina B37.3 ; Mitral valve prolapse I34.1 and Hypertension I10 [facility] [address] [address] Aug, Generalized anxiety disorder F41.1 [facility] [address] [address] Jul, [facility] [address] [address] Jul, Generalized anxiety disorder F41.1 [place] [address] [address] Jun, Generalized anxiety disorder F41.1 [place] [address] [address] May, Encounter for immunization Z23 [facility] [address] [address] May, Generalized anxiety disorder F41.1 and D epressive disorder, not elsewhere classified F32.9 [facility] [address] [place] [id number] [place] [address] Apr, Hypertension I10 [place] [address] [place] [id number] [place] [address] Apr, Cervicalgia M54.2 [facility] [address] [facility] [id number] [address] [place] [address] Apr, Cervicalgia M54.2 [facility] [address] [address] Mar, Generalized anxiety disorder F41.1 and D epressive disorder, not elsewhere classified F32.9 [facility] [address] [id number] [place] [id number] 14 Feb, 2016 Visit for dental examination Z01.20 [facility] [address] [address] 11 Feb, 2016 Pseudoseizures F44.5 ; Migraine without status migrainosus, not intractable, unspecified migraine type G43.909 and Essential hypertension I10 [facility] [address] [facility] [place] [id number] 06 Feb, 2016 Dental examination Z01.20 [facility] [address] [address] 05 Feb, 2016 Generalized anxiety disorder F41.1 and D epressive disorder, not elsewhere classified F32.9 [place] [address] [address] Jan, Tachycardia R00.0 [place] [address] [address] 24 Dec, 2015 Eustachian tube dysfunction, bilateral H 69.83 [place] [address] [address] December, Generalized anxiety disorder F41.1 and D epressive disorder, not elsewhere classified F32.9 [place] [address] [address] Nov, [place] [address] [address] 28 Nov, 2015 [place] [address] [address] 20 Nov, 2015 Hypertension I10 ; Onychomycosis [...] cyst of left ovary N83.29 [place] [address] [address] 14 Nov, 2015 Sinusitis J32.9 [facility] [address] [address] Oct, Complex cyst of left ovary N83.29 [place] [address] [address] Oct, Onychomycosis B35.1 [facility] [address] [facility] [place] [id number] 17 Oct, 2015 Dental examination Z01.20 [place] [address] [address] 09 Oct, 2015 Well woman exam Z01.419 [...] R92.2 and History of colon polyps Z86.010 [place] [address] [address] Oct, Generalized anxiety disorder F41.1 and D epressive disorder, not elsewhere classified F32.9 [place] [address] [address] Sep, Hypertension I10 and Onychomycosis B35.1 [place] [address] [address] Sep, Skin tags, multiple acquired L91.8 [place] [address] [address] Aug, [place] [address] [address] Aug, [place] [address] [address] Aug, [facility] [address] [address] Aug, Generalized anxiety disorder F41.1 and D epressive disorder, not elsewhere classified F32.9 [facility] [address] [address] Jul, Skin lesion L98.9 [facility] [address] [address] Jun, Generalized anxiety disorder F41.1 and D epressive disorder, not elsewhere classified F32.9 [facility] [address] [address] Jun, [facility] [address] [address] Jun, Generalized anxiety disorder F41.1 [facility] [address] [address] May, Encounter for immunization Z23 and Right shoulder pain M25.511 [facility] [address] [address] Apr, [facility] [address] [address] Apr, Generalized anxiety disorder 300.02 and Depressive disorder, not elsewhere classified 311 [facility] [address] [facility] [place] [id number] Mar, Dental examination V72.2 [facility] [address] [address] Mar, Generalized anxiety disorder 300.02 and Depressive disorder, not elsewhere classified 311 [facility] [address] [address] Mar, Depression, major, recurrent, 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.35 and 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 [facility] [address] [address] Feb, Generalized anxiety disorder 300.02 and Depressive disorder, not elsewhere classified 311 [facility] [address] [facility] [place] [id number] 07 Feb, 2015 Dental examination V72.2 [facility] [address] [id number] [place] [address] 09 Jan, 2015 Generalized anxiety disorder 300.02 and Depressive disorder, not elsewhere classified 311 [facility] [address] [address] Jan, [facility] [address] [address] December, Generalized anxiety disorder 300.02 and Depressive disorder, not elsewhere classified 311 [facility] [address] [address] [id number] [place] [address] December, Major depressive disorder, recurrent, un specified 296.30 and Panic disorder with agoraphobia 300.21 [facility] [address] [id number] [place] [address] 14 Nov, 2014 [facility] [address] [address] Nov, [facility] [address] [id number] [place] [address] Oct, [facility] [address] [address] Oct, [facility] [address] [address] [id number] [place] [address] Oct, [facility] [address] [address] Oct, [facility] [address] [id number] [place] [address] Sep, [facility] [address] [address] [id number] [place] [address] Sep, [facility] [address] [address] Sep, [facility] [address] [address] Sep, 2014 [facility] [address] [id number] [place] [address] Sep, 2014 [facility] [address] [id number] [place] [address] Sep, 2014 [facility] [address] [id number] [place] [address] Sep, 2014 [facility] [address] [id number] [place] [address] Sep, 2014 [facility] [address] [id number] [place] [address] Sep, 2014 [facility] [address] [id number] [place] [address] Sep, 2014 [facility] [address] [id number] [place] [address] Aug, [facility] [address] [id number] [place] [address] Aug, [facility] [address] [id number] [place] [address] Jul, [facility] [address] [id number] [place] [address] Jul, [facility] [address] [id number] [place] [address] Jul, [facility] [address] [id number] [place] [address] Jul, [facility] [address] [id number] [place] [address] Jul, [facility] [address] [id number] [place] [address] Jul, [facility] [address] [id number] [place] [address] 05 Jul, 2014 [facility] [address] [id number] [place] [address] Jul, [facility] [address] [id number] [place] [address] Jul, [facility] [address] [id number] [place] [address] Jul, [facility] [address] [id number] [place] [address] Jul, [facility] [address] [id number] [place] [address] Jul, [facility] [address] [id number] [place] [address] Jun, [facility] [address] [id number] [place] [address] Jun, [facility] [address] [id number] [place] [address] May, [facility] [address] [id number] [place] [address] May, [facility] [address] [id number] [place] [address] May, [facility] [address] [id number] [place] [address] May, [facility] [address] [id number] [place] [address] May, [facility] [address] [id number] [place] [address] May, [facility] [address] [id number] [place] [address] May, [facility] [address] [id number] [place] [address] May, [facility] [address] [id number] [place] [address] May, [facility] [address] [id number] [place] [address] May, [facility] [address] [id number] [place] [address] May, [facility] [address] [facility] [id number] [place] [address] May, [facility] [address] [facility] [id number] [facility] [place] [address] 30 Apr, 2014 [facility] [address] [id number] [place] [address] 30 Apr, 2014 [facility] [address] [id number] [facility] [place] [address] Apr, [facility] [address] [facility] [id number] [place] [address] Apr, 2013 [facility] [address] [id number] [place] [address] Apr, [facility] [address] [id number] [place] [address] Apr, [facility] [address] [id number] [place] [address] Feb, [facility] [address] [id number] [place] [address] Feb, [facility] [address] [id number] [place] [address] Feb, [facility] [address] [id number] [place] [address] Feb, [facility] [address] [id number] [place] [address] Feb, [facility] [address] [id number] [place] [address] Feb, [facility] [address] [id number] [place] [address] Jan, [facility] [address] [id number] [place] [address] Jan, [facility] [address] [id number] [place] [address] Jan, [facility] [address] [id number] [facility] [place] [address] Jan, [facility] [address] [id number] [facility] [address] Jan, [facility] [address] [facility] [id number] [place] [address] Jan, [facility] [address] [id number] [place] [address] Jan, [facility] [address] [id number] [place] [address] Jan, [facility] [address] [facility] [id number] [facility] [place] [address] December, [facility] [address] [id number] [place] [address] December, [facility] [address] [id number] [place] [address] December, [facility] [address] [id number] [place] [address] December, [facility] [address] [id number] [place] [address] Nov, [facility] [address] [id number] [place] [address] Nov, [facility] [address] [id number] [place] [address] Nov, [facility] [address] [id number] [place] [address] Nov, [facility] [address] [id number] [place] [address] Nov, [facility] [address] [id number] [place] [address] Nov, [facility] [address] [id number] [place] [address] Nov, [facility] [address] [id number] [place] [address] Nov, [facility] [address] [id number] [place] [address] Oct, [facility] [address] [id number] [place] [address] Oct, [facility] [address] [id number] [place] [address] Sep, [facility] [address] [id number] [place] [address] Sep, [facility] [address] [facility] [id number] [place] [id number] Sep, [facility] [address] [id number] [place] [address] Sep, [facility] [address] [id number] [place] [address] Sep, [facility] [address] [id number] [place] [address] Sep, [facility] [address] [id number] [place] [address] Aug, [facility] [address] [id number] [place] [address] Aug, [facility] [address] [id number] [place] [address] Aug, [facility] [address] [id number] [place] [address] Aug, [facility] [address] [id number] [place] [address] Jul, [facility] [address] [id number] [place] [address] Jul, [facility] [address] [id number] [place] [address] Jul, [facility] [address] [id number] [place] [address] Jul, [facility] [address] [id number] [place] [address] 08 Jun, 2013 [facility] [address] [facility] [id number] [facility] [place] [address] Jun, [facility] [address] [facility] [id number] [facility] [place] [address] May, [facility] [address] [facility] [id number] [facility] [place] [address] May, [facility] [address] [facility] [id number] [facility] [place] [address] May, [facility] [address] [facility] [id number] [facility] [place] [address] May, [facility] [address] [facility] [id number] [facility] [place] [address] May, [facility] [address] [id number] [place] [address] Apr, [facility] [address] [id number] [facility] [address] Apr, [facility] [address] [facility] [id number] [place] [address] Mar, [facility] [address] [id number] [facility] [address] Mar, [facility] [address] [id number] [place] [address] Mar, [facility] [address] [id number] [place] [address] Mar, [facility] [address] [facility] [id number] [facility] [address] Feb, [facility] [address] [facility] [id number] [place] [address] Feb, [facility] [address] [facility] [id number] [place] [address] Feb, [facility] [address] [id number] [place] [address] Feb, [facility] [address] [id number] [place] [address] 10 Feb, 2013 [facility] [address] [id number] [place] [address] Jan, [facility] [address] [id number] [place] [address] Jan, [facility] [address] [id number] [place] [address] Jan, [facility] [address] [id number] [place] [address] Jan, [facility] [address] [id number] [place] [address] Jan, [facility] [address] [id number] [place] [address] December, [facility] [address] [id number] [place] [address] December, [facility] [address] [id number] [place] [address] Nov, [facility] [address] [id number] [place] [address] Nov, [facility] [address] [id number] [place] [address] Oct, [facility] [address] [id number] [place] [address] Oct, [facility] [address] [id number] [place] [address] Oct, [facility] [address] [id number] [place] [address] Sep, [facility] [address] [id number] [place] [address] 24 Aug, 2012 [facility] [address] [id number] [place] [address] Aug, [facility] [address] [id number] [place] [address] Aug, [facility] [address] [id number] [place] [address] Aug, [facility] [address] [id number] [place] [address] Jul, [facility] [address] [id number] [place] [address] Jul, [facility] [address] [id number] [place] [address] Jul, [facility] [address] [id number] [place] [address] Jul, [facility] [address] [id number] [place] [address] Jul, [facility] [address] [id number] [place] [address] Jul, [facility] [address] [id number] [place] [address] Jul, [facility] [address] [id number] [place] [address] Jul, [facility] [address] [id number] [place] [address] Jun, [facility] [address] [id number] [place] [address] Jun, [facility] [address] [id number] [place] [address] Jun, [facility] [address] [id number] [place] [address] Jun, [facility] [address] [id number] [place] [address] Jun, [facility] [address] [id number] [place] [address] Jun, [facility] [address] [id number] [place] [address] May, [facility] [address] [id number] [place] [address] May, [facility] [address] [facility] [id number] [place] [address] May, [facility] [address] [id number] [place] [address] 17 May, 2012 [facility] [address] [id number] [place] [address] 26 Apr, 2012 [facility] [address] [id number] [place] [address] 06 Apr, 2012 [facility] [address] [id number] [place] [address] 08 Mar, 2012 [facility] [address] [id number] [place] [address] 28 Jan, 2012 [facility] [address] [id number] [place] [address] 20 Jan, 2012 [facility] [address] [id number] [place] [address] 16 Jan, 2012 [facility] [address] [id number] [place] [address] 15 Jan, 2012 [facility] [address] [id number] [place] [address] 14 Jan, 2012 [facility] [address] [id number] [place] [address] 14 Jan, 2012 [facility] [address] [id number] [place] [address] Jan, [facility] [address] [id number] [place] [address] December, [facility] [address] [id number] [place] [address] December, [facility] [address] [id number] [place] [address] December, [facility] [address] [id number] [place] [address] December, [facility] [address] [id number] [place] [address] Nov, [facility] [address] [id number] [place] [address] Nov, [facility] [address] [id number] [place] [address] Oct, [facility] [address] [id number] [place] [address] Oct, [facility] [address] [id number] [place] [address] Oct, [facility] [address] [id number] [place] [address] Sep, [facility] [address] [id number] [place] [address] Sep, [facility] [address] [id number] [place] [address] Sep, [facility] [address] [id number] [place] [address] Aug, [facility] [address] [id number] [place] [address] Aug, [facility] [address] [id number] [place] [address] Aug, [facility] [address] [id number] [place] [address] Aug, [facility] [address] [id number] [place] [address] Aug, [facility] [address] [id number] [place] [address] Aug, [facility] [address] [id number] [place] [address] Aug, [facility] [address] [id number] [place] [address] Jul, [facility] [address] [id number] [place] [address] Jul, [facility] [address] [id number] [place] [address] 30 Jun, 2011 [facility] [address] [id number] [place] [address] 28 Jun, 2011 [facility] [address] [id number] [place] [address] 17 Jun, 2011 [facility] [address] [id number] [place] [address] 15 Jun, 2011 [facility] [address] [id number] [place] [address] 14 Jun, 2011 [facility] [address] [id number] [place] [address] 14 Jun, 2011 [facility] [address] [id number] [place] [address] Jun, [facility] [id number] [place] [address] Jun, [facility] [address] [id number] [place] [address] Jun, [facility] [address] [id number] [place] [address] Jun, [facility] [address] [id number] [place] [address] May, [facility] [address] [id number] [place] [address] May, [facility] [address] [id number] [place] [address] May, [facility] [address] [id number] [place] [address] 24 May, 2011 [facility] [address] [id number] [place] [address] 18 May, 2011 [facility] [address] [id number] [place] [address] 13 May, 2011 [facility] [address] [id number] [place] [address] 13 Feb, 2011 [facility] [address] [id number] [place] [address] December, [facility] [address] [id number] [place] [address] Jul, [facility] [id number] [place] [address] Jul, [facility] [id number] [place] [address] Jul, [facility] [address] [id number] [place] [address] Jul, [facility] [id number] [place] [address] Jun, [facility] [id number] [place] [address] Jul, [facility] [id number] [place] [address] Jul, [facility] [id number] [place] [address] Jul, [facility] [address] [id number] [place] [address] Jul, [facility] [address] [id number] [place] [address] 17 Jul, 2009 [facility] [address] [id number] [place] [address] Jul, [facility] [address] [id number] [place] [address] 15 Jan, 2009 [facility] [address] [id number] [place] [address] 16 Sep, 2008 [facility] [address] [id number] [place] [address] 11 Sep, 2008 IMMUNIZATIONS No Known Immunizations SOCIAL HISTORY Never Assessed REASON FOR VISIT PLAN OF CARE VITAL SIGNS MEDICATIONS Unknown Medications RESULTS No Results PROCEDURES Procedure Date Ordered Result Body Site PSYTX PT&/FAMILY 45 MINUTES Oct 08, 2013 INSTRUCTIONS MEDICATIONS ADMINISTERED No Known Medications [...]
--- OUTSIDE RECORDS SUMMARY | 2020-01-27 10:07 | XMS REPORT ---
Author Author Silvia WILKINS Organization [facility] [place] Address [address] [place] [address] Care Team Providers Care Photo Finish Photographer Name Role Phone LETTY WILKINS Unavailable PROBLEMS Type Condition ICD9-CM Code PHB03-OP Code Onset Dates Condition S tatus SNOMED Code Problem Hypertension I10 Active 1500525 3 Problem Generalized anxiety disorder F41.1 A ctive 903911264 Problem History of colon polyps Z86.010 Active 765066652 Problem History of diverticulitis Z87.19 Acti ve [id number] Problem Family history of diabetes mellitus Z83.3 Active 743736734 Problem Excessive and frequent menstruation with irregular cycle N92.1 Active 357914084 Problem Hot flashes N95.1 Active 23572418 8 Problem Gastroesophageal reflux disease with esophagitis K 21.0 Active 636950259 Problem History of ovarian cyst Z87.42 Active 74125543 Problem Diverticulitis K57.92 Active 79676 6006 Problem Dense breast tissue R92.2 Active 507213927 Problem Perimenopausal N95.1 Active 33408 6012562418 Problem Mitral valve prolapse I34.1 Active 262423194 Problem Abnormal uterine bleeding (AUB) N93.9 Active [id number] Problem Tachycardia R00.0 Active 3111115 ALLERGIES No Information ENCOUNTERS Encounter Location Date Diagnosis [facility] [place] [address] [facility] [place] [address] 16 Nov, 2019 [facility] [place] [address] [facility] [place] [address] 30 Oct, 2019 [facility] [place] [address] [id number] [place] [address] 16 Oct, 2019 Acute non-recurrent sinusitis, unspecifi ed location J01.90 [facility] [address] [facility] [id number] [place] [address] Oct, Acute non-recurrent frontal sinusitis J01.10 [facility] [place] [id number] [place] [address] 27 Sep, 2019 Generalized anxiety disorder F41.1 and B ereavement Z63.4 [facility] [place] [id number] [place] [address] 17 Sep, 2019 [place] [address] [address] Sep, Generalized anxiety disorder F41.1 and B ereavement Z63.4 [place] [address] [address] Aug, Generalized anxiety disorder F41.1 and B ereavement Z63.4 [place] [id number] [place] [address] Aug, Generalized anxiety disorder F41.1 [place] [address] [address] Aug, Viral upper respiratory tract infection J06.9 [place] [address] [address] Jul, Generalized anxiety disorder F41.1 and B ereavement Z63.4 [place] [id number] [place] [address] Jul, Acute non-recurrent frontal sinusitis J0 1.10 [facility] [address] [facility] [id number] [address] [place] [address] Jul, [facility] [address] [place] [id number] [place] [address] Jul, Sore throat J02.9 and Uvulit is K12.2 [facility] [place] [id number] [place] [address] Jul, Generalized anxiety disorder F41.1 [facility] [address] [place] [id number] [place] [address] Jul, Caries K02.9 [facility] [place] [address] [address] Jun, Generalized anxiety disorder F41.1 [facility] [place] [address] [address] Jun, Generalized anxiety disorder F41.1 and B ereavement Z63.4 [place] [address] [address] May, Generalized anxiety disorder F41.1 [facility] [address] [facility] [id number] [address] [place] [address] May, Dysuria R30.0 [place] [address] [address] May, Generalized anxiety disorder F41.1 and B ereavement Z63.4 [place] [address] [address] May, [facility] [place] [address] [address] Apr, Generalized anxiety disorder F41.1 and B ereavement Z63.4 [place] [address] [address] Apr, Generalized anxiety disorder F41.1 [facility] [address] [id number] [place] [address] Mar, Caries K02.9 ; Dental examin ation Z01.20 ; Periodontitis K05.30 and Oral health maintenance status requiring routine preventive dental care K08.9 [place] [address] [address] Mar, Generalized anxiety disorder F41.1 [facility] [place] [address] [address] Mar, Gastrointestinal hemorrhage associated w ith gastroduodenitis K29.91 [place] [address] [address] Mar, Generalized anxiety disorder F41.1 and B ereavement Z63.4 [facility] [place] [address] [address] Mar, [facility] [place] [address] [address] Mar, [facility] [place] [address] [address] Mar, [facility] [place] [address] [address] Mar, Tachycardia R00.0 and Essential hyperten boone I10 [facility] [place] [address] [address] Feb, Generalized anxiety disorder F41.1 [place] [address] [address] Feb, Generalized anxiety disorder F41.1 and B ereavement Z63.4 [facility] [place] [address] [address] Feb, Generalized anxiety disorder F41.1 [place] [address] [address] Feb, Generalized anxiety disorder F41.1 and B ereavement Z63.4 [facility] [place] [address] [address] Jan, [facility] [place] [address] [address] Jan, Breast cancer screening by mammogram Z12 .31 [facility] [place] [address] [address] Jan, Generalized anxiety disorder F41.1 and B ereavement Z63.4 [facility] [place] [address] [address] Jan, [facility] [place] [address] [address] December, Generalized anxiety disorder F41.1 and B ereavement Z63.4 [facility] [place] [address] [address] December, Diverticulitis K57.92 ; Dysuria R30.0 ; Other constipation K59.09 and Lower abdominal pain R10.30 [facility] [address] [facility] [id number] [address] [place] [address] Nov, Diverticulitis K57.92 [facility] [place] [address] [address] Nov, Generalized anxiety disorder F41.1 and B ereavement Z63.4 [place] [address] [address] Nov, Generalized anxiety disorder F41.1 and B ereavement Z63.4 [place] [address] [address] Nov, Diverticulitis K57.92 [facility] [address] [place] [address] [id number] [address] [place] [address] Oct, Diverticulitis K57.92 [place] [address] [address] Oct, Diverticulitis K57.92 [place] [address] [address] Oct, Generalized anxiety disorder F41.1 [facility] [address] [place] [address] [id number] [address] [place] [address] Oct, Right lower quadrant abdomin al pain R10.31 and Diverticulitis K57.92 [place] [address] [address] Sep, Generalized anxiety disorder F41.1 and B ereavement Z63.4 [place] [address] [address] Aug, [place] [address] [address] Aug, Generalized anxiety disorder F41.1 and B ereavement Z63.4 [facility] [address] [address] Aug, Caries K02.9 [facility] [place] [address] [address] Jul, Generalized anxiety disorder F41.1 and B ereavement Z63.4 [facility] [place] [address] [address] Jul, Other acute gastritis without hemorrhage K29.00 ; Generalized anxiety disorder F41.1 ; Tachycardia R00.0 and Essential hypertension I10 [place] [address] [address] Jul, Generalized anxiety disorder F41.1 and B ereavement Z63.4 [place] [address] [address] Jun, Generalized anxiety disorder F41.1 and B ereavement Z63.4 [place] [address] [address] Jun, Generalized anxiety disorder F41.1 and B ereavement Z63.4 [facility] [address] [place] [address] Jun, Dental examination Z01.20 [place] [address] [address] May, Generalized anxiety disorder F41.1 and B ereavement Z63.4 [place] [address] [address] May, Encounter for immunization Z23 [place] [address] [address] May, Generalized anxiety disorder F41.1 and B ereavement Z63.4 [place] [address] [address] May, [facility] [place] [address] [facility] [place] [address] 24 Apr, 2018 Generalized anxiety disorder F41.1 and B ereavement Z63.4 [facility] [place] [address] [facility] [place] [address] 17 Apr, 2018 [facility] [place] [address] [facility] [place] [address] Apr, Diverticulitis K57.92 [facility] [place] [address] [facility] [place] [address] Apr, Generalized anxiety disorder F41.1 and B ereavement Z63.4 [facility] [address] [facility] [id number] [place] [address] Mar, [facility] [address] [facility] [id number] [address] [place] [address] Mar, Diverticulitis K57.92 [facility] [place] [address] [id number] [place] [address] Mar, Generalized anxiety disorder F41.1 and B ereavement Z63.4 [facility] [place] [address] [place] [id number] [place] [address] Mar, Hypertension I10 [facility] [place] [address] [id number] [place] [address] Mar, Generalized anxiety disorder F41.1 and B ereavement Z63.4 [facility] [place] [address] [id number] [place] [address] Feb, Generalized anxiety disorder F41.1 and B ereavement Z63.4 [facility] [place] [id number] [place] [address] Feb, [facility] [place] [address] [id number] [place] [address] Feb, Generalized anxiety disorder F41.1 and B ereavement Z63.4 [facility] [place] [address] [address] Feb, Generalized anxiety disorder F41.1 and B ereavement Z63.4 [facility] [place] [address] [address] Jan, Hypertension I10 and Acute non-recurrent maxillary sinusitis J01.00 [facility] [place] [address] [address] December, [facility] [place] [address] [address] December, Hypertension I10 [facility] [place] [address] [address] December, Generalized anxiety disorder F41.1 [facility] [address] [place] [address] Oct, Encounter for dental examina tion Z01.20 [facility] [address] [place] [address] Oct, Encounter for dental examina tion Z01.20 [facility] [address] [place] [address] Oct, Dental examination Z01.20 [place] [address] [address] Oct, Generalized anxiety disorder F41.1 [facility] [address] [place] [address] Aug, Dental examination Z01.20 [facility] [place] [address] [address] Aug, Generalized anxiety disorder F41.1 [place] [address] [address] Aug, [facility] [address] [place] [address] Aug, Encounter for dental examina tion Z01.20 [facility] [place] [address] [address] Aug, Subacute maxillary sinusitis J01.00 [facility] [address] [address] 22 Jul, 2017 Dental examination Z01.20 [facility] [place] [address] [address] 19 Jul, 2017 Generalized anxiety disorder F41.1 [facility] [place] [address] [address] Jul, Diverticulitis K57.92 [facility] [place] [address] [address] 28 Jun, 2017 Encounter for immunization Z23 [facility] [address] [address] Jun, Dental examination Z01.20 [facility] [place] [address] [address] 14 Jun, 2017 Generalized anxiety disorder F41.1 [facility] [address] [place] [id number] [place] [address] 07 Jun, 2017 Dental examination Z01.20 [facility] [place] [address] [address] May, [facility] [address] [facility] [place] [id number] May, Dental examination Z01.20 [facility] [address] [id number] May, Dental examination Z01.20 [facility] [address] [place] [id number] [place] [address] May, Dental examination Z01.20 [facility] [place] [address] [address] May, [facility] [place] [address] [address] May, Generalized anxiety disorder F41.1 [facility] [place] [address] [address] May, Localized edema R60.0 ; Yeast vaginitis B37.3 and Gastroesophageal reflux disease with esophagitis K21.0 [facility] [address] [id number] Apr, Dental examination Z01.20 [facility] [address] [address] Apr, Dental examination Z01.20 [facility] [address] [address] 05 Apr, 2017 Dental examination Z01.20 [facility] [place] [address] [address] Mar, Dyspepsia R10.13 [facility] [place] [address] [address] Mar, Generalized anxiety disorder F41.1 [facility] [address] [place] [address] Mar, Encounter for dental examina tion Z01.20 [facility] [address] [id number] Mar, [facility] [address] [id number] Mar, Dental examination Z01.20 [facility] [place] [address] [address] Feb, Hypertension I10 and Tachycardia R00.0 [facility] [address] [address] Feb, [facility] [place] [address] [address] Feb, Generalized anxiety disorder F41.1 [facility] [address] [id number] Feb, Dental examination Z01.20 [facility] [place] [address] [address] Jan, Generalized anxiety disorder F41.1 [facility] [place] [address] [address] December, Generalized anxiety disorder F41.1 [facility] [address] [id number] December, Encounter for dental examination Z01.20 [facility] [place] [address] [address] Nov, [facility] [place] [address] [address] Nov, [facility] [place] [address] [address] Nov, Generalized anxiety disorder F41.1 [facility] [place] [address] [address] Oct, [facility] [address] [id number] Oct, Dental examination Z01.20 [facility] [place] [address] [address] Oct, Vaginal dryness N89.8 [facility] [place] [address] [address] Oct, Pseudoseizures F44.5 [place] [address] [address] Oct, Generalized anxiety disorder F41.1 [facility] [place] [address] [address] Sep, Abnormal uterine bleeding (AUB) N93.9 ; Vaginal dryness N89.8 and Screening breast examination Z12.39 [facility] [place] [address] [address] Sep, Dental examination Z01.20 [facility] [place] [address] [address] Sep, Generalized anxiety disorder F41.1 [facility] [place] [address] [address] 06 Sep, 2017 Unspecified ovarian cyst, right side N83 .201 ; Unspecified ovarian cyst, left side N83.202 ; Yeast infection of the vagina B37.3 ; Mitral valve prolapse I34.1 and Hypertension I10 [facility] [place] [address] [address] Aug, Generalized anxiety disorder F41.1 [facility] [place] [address] [address] Jul, [facility] [place] [address] [address] Jul, Generalized anxiety disorder F41.1 [facility] [place] [address] [address] Jun, Generalized anxiety disorder F41.1 [facility] [place] [address] [address] May, Encounter for immunization Z23 [facility] [place] [address] [address] 17 May, 2016 Generalized anxiety disorder F41.1 and D epressive disorder, not elsewhere classified F32.9 [facility] [place] [address] [address] 28 Apr, 2016 Hypertension I10 [facility] [place] [address] [address] Apr, Cervicalgia M54.2 [facility] [address] [facility] [id number] [address] [place] [address] Apr, Cervicalgia M54.2 [facility] [place] [address] [address] 09 Mar, 2016 Generalized anxiety disorder F41.1 and D epressive disorder, not elsewhere classified F32.9 [facility] [address] [facility] [id number] [place] [id number] Feb, Visit for dental examination Z01.20 [facility] [place] [address] [address] 11 Feb, 2016 Pseudoseizures F44.5 ; Migraine without status migrainosus, not intractable, unspecified migraine type G43.909 and Essential hypertension I10 [facility] [address] [facility] [place] [id number] 06 Feb, 2016 Dental examination Z01.20 [facility] [place] [address] [address] 05 Feb, 2016 Generalized anxiety disorder F41.1 and D epressive disorder, not elsewhere classified F32.9 [place] [address] [address] Jan, Tachycardia R00.0 [place] [address] [address] December, Eustachian tube dysfunction, bilateral H 69.83 [place] [address] [address] December, Generalized anxiety disorder F41.1 and D epressive disorder, not elsewhere classified F32.9 [place] [address] [address] Nov, [place] [address] [address] 28 Nov, 2015 [place] [address] [address] Nov, Hypertension I10 ; Onychomycosis B35.1 ; [...] and Complex cyst of left ovary N83.29 [place] [address] [address] 14 Nov, 2015 Sinusitis J32.9 [place] [address] [address] Oct, Complex cyst of left ovary N83.29 [facility] [place] [address] [address] Oct, Onychomycosis B35.1 [facility] [address] [place] [id number] [place] [id number] 17 Oct, 2015 Dental examination Z01.20 [place] [address] [address] 09 Oct, 2015 Well woman exam Z01.419 [...] R92.2 and History of colon polyps Z86.010 [place] [address] [address] Oct, Generalized anxiety disorder F41.1 and D epressive disorder, not elsewhere classified F32.9 [place] [address] [address] Sep, Hypertension I10 and Onychomycosis B35.1 [place] [address] [address] Sep, Skin tags, multiple acquired L91.8 [place] [address] [address] Aug, [place] [address] [address] Aug, [place] [address] [address] Aug, [facility] [place] [address] [address] Aug, Generalized anxiety disorder F41.1 and D epressive disorder, not elsewhere classified F32.9 [facility] [place] [address] [address] Jul, Skin lesion L98.9 [facility] [place] [address] [address] Jun, Generalized anxiety disorder F41.1 and D epressive disorder, not elsewhere classified F32.9 [facility] [place] [address] [address] Jun, [facility] [place] [address] [address] Jun, Generalized anxiety disorder F41.1 [facility] [place] [address] [address] May, Encounter for immunization Z23 and Right shoulder pain M25.511 [facility] [place] [address] [address] Apr, [facility] [place] [address] [address] Apr, Generalized anxiety disorder 300.02 and Depressive disorder, not elsewhere classified 311 [facility] [address] [id number] [place], [place] [id number] Mar, Dental examination V72.2 [facility] [place] [address] [address] Mar, Generalized anxiety disorder 300.02 and Depressive disorder, not elsewhere classified 311 [facility] [place] [address] [address] Mar, Depression, major, recurrent, 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.35 and 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 [facility] [place] [address] [address] Feb, Generalized anxiety disorder 300.02 and Depressive disorder, not elsewhere classified 311 [facility] [address] [id number] [place] [id number] 07 Feb, 2015 Dental examination V72.2 [facility], [place] [address] [id number] [place] [address] 09 Jan, 2015 Generalized anxiety disorder 300.02 and Depressive disorder, not elsewhere classified 311 [facility] [place] [address] [address] Jan, [facility] [place] [address] [address] December, Generalized anxiety disorder 300.02 and Depressive disorder, not elsewhere classified 311 [facility] [place] [id number] [place] [address] December, Major depressive disorder, recurrent, un specified 296.30 and Panic disorder with agoraphobia 300.21 [facility] [facility] [place] [id number] [place] [address] 14 Nov, 2014 [facility] [place] [address] [address] Nov, [facility] [place] [address] [address] Oct, [facility] [place] [address] [address] Oct, [facility] [place] [id number] [place] [address] Oct, [facility] [place] [address] [address] Oct, [facility] [place] [address] [address] Sep, [facility] [place] [address] [address] Sep, [facility] [place] [address] [address] Sep, [facility] [place] [address] [address] Sep, 2014 [facility] [address] [id number] [place] [address] Sep, 2014 [facility] [address] [id number] [place] [address] Sep, 2014 [facility] [address] [id number] [place] [address] Sep, 2014 [facility] [address] [id number] [place] [address] Sep, 2014 [facility] [address] [id number] [place] [address] Sep, [facility] [address] [id number] [place] [address] Sep, 2014 [facility] [address] [id number] [place] [address] Aug, [facility] [address] [id number] [place] [address] Aug, [facility] [address] [id number] [place] [address] Jul, [facility] [address] [id number] [place] [address] Jul, [facility] [address] [id number] [place] [address] Jul, [facility] [address] [id number] [place] [address] Jul, [facility] [address] [id number] [place] [address] Jul, [facility] [address] [id number] [place] [address] Jul, [facility] [address] [id number] [place] [address] Jul, [facility] [address] [id number] [place] [address] 05 Jul, 2014 [facility] [address] [id number] [place] [address] Jul, [facility] [address] [id number] [place] [address] Jul, [facility] [address] [id number] [place] [address] Jul, [facility] [address] [id number] [place] [address] Jul, [facility] [address] [id number] [place] [address] Jun, [facility] [address] [id number] [place] [address] Jun, [facility] [address] [id number] [place] [address] May, [facility] [address] [id number] [place] [address] May, [facility] [address] [id number] [place] [address] May, [facility] [address] [id number] [place] [address] May, [facility] [address] [id number] [place] [address] May, [facility] [address] [id number] [place] [address] May, [facility] [address] [id number] [place] [address] May, [facility] [address] [id number] [place] [address] May, [facility] [address] [id number] [place] [address] May, [facility] [address] [id number] [place] [address] May, [facility] [address] [id number] [place] [address] May, [facility] [address] [facility] [id number] [place] [address] May, [facility] [address] [facility] [id number] [facility] [place] [address] Apr, [facility] [address] [id number] [place] [address] Apr, [facility] [address] [id number] [place] [address] Apr, [facility] [address] [facility] [id number] [facility] [place] [address] Apr, [facility] [address] [id number] [place] [address] Apr, [facility] [address] [id number] [place] [address] Apr, [facility] [address] [id number] [place] [address] Feb, [facility] [address] [id number] [place] [address] Feb, [facility] [address] [id number] [place] [address] Feb, [facility] [address] [id number] [place] [address] Feb, [facility] [address] [id number] [place] [address] Feb, [facility] [address] [id number] [place] [address] Feb, [facility] [address] [id number] [place] [address] Jan, [facility] [address] [id number] [place] [address] Jan, [facility] [address] [id number] [place] [address] Jan, [facility] [address] [id number] [facility] [place] [address] Jan, [facility] [address] [id number] [place] [address] Jan, [facility] [address] [facility] [id number] [place] [address] Jan, [facility] [address] [id number] [place] [address] Jan, [facility] [address] [id number] [place] [address] Jan, [facility] [address] [id number] [place] [address] December, [facility] [address] [id number] [place] [address] December, [facility] [address] [id number] [place] [address] December, [facility] [address] [id number] [place] [address] December, [facility] [address] [id number] [place] [address] Nov, [facility] [address] [id number] [place] [address] Nov, [facility] [address] [id number] [place] [address] Nov, [facility] [address] [id number] [place] [address] Nov, [facility] [address] [id number] [place] [address] Nov, [facility] [address] [id number] [place] [address] Nov, [facility] [address] [id number] [place] [address] Nov, [facility] [address] [id number] [place] [address] Nov, [facility] [address] [id number] [place] [address] Oct, [facility] [address] [id number] [place] [address] Oct, [facility] [address] [id number] [place] [address] Sep, [facility] [address] [id number] [place] [address] Sep, [facility] [address] [facility] [id number] [place] [id number] Sep, [facility] [address] [id number] [place] [address] Sep, [facility] [address] [id number] [place] [address] Sep, [facility] [address] [id number] [place] [address] Sep, [facility] [address] [id number] [place] [address] Aug, [facility] [address] [id number] [place] [address] Aug, [facility] [address] [id number] [place] [address] Aug, [facility] [address] [id number] [place] [address] Aug, [facility] [address] [id number] [place] [address] Jul, [facility] [address] [id number] [place] [address] Jul, [facility] [address] [id number] [place] [address] Jul, [facility] [address] [id number] [place] [address] Jul, [facility] [address] [id number] [place] [address] 08 Jun, 2013 [facility] [address] [facility] [id number] [facility] [place] [address] Jun, [facility] [address] [facility] [id number] [facility] [place] [address] May, [facility] [address] [id number] [place] [address] May, [facility] [address] [facility] [id number] [place] [address] May, [facility] [address] [facility] [id number] [facility] [place] [address] May, [facility] [address] [id number] [place] [address] May, [facility] [address] [id number] [place] [address] Apr, [facility] [address] [id number] [place] [address] Apr, [facility] [address] [facility] [id number] [place] [address] Mar, [facility] [address] [id number] [place] [address] Mar, [facility] [address] [id number] [place] [address] Mar, [facility] [address] [id number] [place] [address] Mar, [facility] [address] [facility] [id number] [place] [address] Feb, [facility] [address] [id number] [place] [address] Feb, [facility] [address] [id number] [place] [address] Feb, [facility] [address] [id number] [place] [address] Feb, [facility] [address] [id number] [place] [address] Feb, [facility] [address] [id number] [place] [address] Jan, [facility] [address] [id number] [place] [address] Jan, [facility] [address] [id number] [place] [address] Jan, [facility] [address] [id number] [place] [address] Jan, [facility] [address] [id number] [place] [address] Jan, [facility] [address] [id number] [place] [address] December, [facility] [address] [id number] [place] [address] December, [facility] [address] [id number] [place] [address] Nov, [facility] [address] [id number] [place] [address] Nov, [facility] [address] [id number] [place] [address] Oct, [facility] [address] [id number] [place] [address] Oct, [facility] [address] [id number] [place] [address] Oct, [facility] [address] [id number] [place] [address] Sep, [facility] [address] [id number] [place] [address] 24 Aug, 2012 [facility] [address] [id number] [place] [address] Aug, [facility] [address] [id number] [place] [address] Aug, [facility] [address] [id number] [place] [address] Aug, [facility] [address] [id number] [place] [address] Jul, [facility] [address] [id number] [place] [address] Jul, [facility] [address] [id number] [place] [address] Jul, [facility] [address] [id number] [place] [address] Jul, [facility] [address] [id number] [place] [address] Jul, [facility] [address] [id number] [place] [address] Jul, [facility] [id number] [place] [address] Jul, [facility] [address] [id number] [place] [address] Jul, [facility] [address] [id number] [place] [address] Jun, [facility] [address] [id number] [place] [address] Jun, [facility] [address] [id number] [place] [address] Jun, [facility] [address] [id number] [place] [address] Jun, [facility] [address] [id number] [place] [address] Jun, [facility] [address] [id number] [place] [address] Jun, [facility] [address] [id number] [place] [address] May, [facility] [address] [id number] [place] [address] May, [facility] [address] [facility] [id number] [facility] [place] [address] May, [facility] [address] [id number] [place] [address] May, [facility] [address] [id number] [place] [address] 26 Apr, 2012 [facility] [address] [id number] [place] [address] 06 Apr, 2012 [facility] [address] [id number] [place] [address] Mar, [facility] [address] [id number] [place] [address] 28 Jan, 2012 [facility] [address] [id number] [place] [address] 20 Jan, 2012 [facility] [address] [id number] [place] [address] 16 Jan, 2012 [facility] [address] [id number] [place] [address] 15 Jan, 2012 [facility] [address] [id number] [place] [address] 14 Jan, 2012 [facility] [address] [id number] [place] [address] 14 Jan, 2012 [facility] [address] [id number] [place] [address] 07 Jan, 2012 [facility] [address] [id number] [place] [address] December, [facility] [address] [id number] [place] [address] December, [facility] [address] [id number] [place] [address] December, [facility] [address] [id number] [place] [address] December, [facility] [address] [id number] [place] [address] Nov, [facility] [address] [id number] [place] [address] Nov, [facility] [address] [id number] [place] [address] Oct, [facility] [address] [id number] [place] [address] Oct, [facility] [address] [id number] [place] [address] Oct, [facility] [address] [id number] [place] [address] Sep, [facility] [address] [id number] [place] [address] Sep, [facility] [address] [id number] [place] [address] Sep, [facility] [address] [id number] [place] [address] Aug, [facility] [address] [id number] [place] [address] Aug, [facility] [address] [id number] [place] [address] Aug, [facility] [address] [id number] [place] [address] Aug, [facility] [address] [id number] [place] [address] Aug, [facility] [address] [id number] [place] [address] Aug, [facility] [address] [id number] [place] [address] Aug, [facility] [address] [id number] [place] [address] Jul, [facility] [address] [id number] [place] [address] Jul, [facility] [address] [id number] [place] [address] Jun, [facility] [address] [id number] [place] [address] 28 Jun, 2011 [facility] [address] [id number] [place] [address] 17 Jun, 2011 [facility] [address] [id number] [place] [address] 15 Jun, 2011 [facility] [address] [id number] [place] [address] 14 Jun, 2011 [facility] [address] [id number] [place] [address] 14 Jun, 2011 [facility] [address] [id number] [place] [address] Jun, [facility] [address] [id number] [place] [address] Jun, [facility] [address] [id number] [place] [address] Jun, [facility] [address] [id number] [place] [address] Jun, [facility] [address] [id number] [place] [address] May, [facility] [address] [id number] [place] [address] 31 May, 2011 [facility] [address] [id number] [place] [address] May, [facility] [address] [id number] [place] [address] 24 May, 2011 [facility] [address] [id number] [place] [address] 18 May, 2011 [facility] [address] [id number] [place] [address] 13 May, 2011 [facility] [id number] [place] [address] 13 Feb, 2011 [facility] [place] [id number] [place] [address] December, [facility] [place] [id number] [place] [address] Jul, [facility] [place] [id number] [place] [address] Jul, [facility] [place] [id number] [place] [address] Jul, [facility] [place] [id number] [place] [address] Jul, [facility] [place] [id number] [place] [address] Jun, [facility] [place] [id number] [place] [address] Jul, [facility] [place] [id number] [place] [address] Jul, [facility] [place] [id number] [place] [address] Jul, [facility] [place] [id number] [place] [address] Jul, [facility] [place] [id number] [place] [address] Jul, [facility] [place] [id number] [place] [address] Jul, [facility] [place] [id number] [place] [address] 15 Jan, 2009 [facility] [place] [id number] [place] [address] 16 Sep, 2008 [facility] [place] [id number] [place] [address] 11 Sep, 2008 IMMUNIZATIONS No Known Immunizations [...]
--- OUTSIDE RECORDS SUMMARY | 2020-01-27 10:08 | XMS REPORT ---
Author Author Silvia WILKINS Organization [facility] Address [address] [place] [address] Care Team Providers Care Touch Up Worker Name Role Phone LETTY WILKINS Unavailable PROBLEMS Type Condition ICD9-CM Code [id number] Code Onset Dates Condition S tatus SNOMED Code Problem Hypertension I10 Active 1776579 3 Problem Generalized anxiety disorder F41.1 A ctive 683749220 Problem History of colon polyps Z86.010 Active 353873795 Problem History of diverticulitis Z87.19 Acti ve 271510026992213 Problem Family history of diabetes mellitus Z83.3 Active 691395966 Problem Excessive and frequent menstruation with irregular cycle N92.1 Active 664584634 Problem Hot flashes N95.1 Active 32948571 8 Problem Gastroesophageal reflux disease with esophagitis K 21.0 Active 476935548 Problem History of ovarian cyst Z87.42 Active 14556413 Problem Diverticulitis K57.92 Active 34505 6006 Problem Dense breast tissue R92.2 Active 535981002 Problem Perimenopausal N95.1 Active 48190 7712742902 Problem Mitral valve prolapse I34.1 Active 167219510 Problem Abnormal uterine bleeding (AUB) N93.9 Active 77949456518189 Problem Tachycardia R00.0 Active 7422583 ALLERGIES No Information ENCOUNTERS Encounter Location Date Diagnosis [facility] [id number] [place] [address] Oct, [facility] [address] [address] Sep, [facility] [address] [address] Sep, [facility] [address] [address] Sep, Generalized anxiety disorder F41.1 and B ereavement Z63.4 [facility] [address] [facility] [place] [address] Aug, Generalized anxiety disorder F41.1 and B ereavement Z63.4 [facility] [address] [facility] [place] [address] Aug, Generalized anxiety disorder F41.1 [facility] [id number] [place] [address] Aug, Viral upper respiratory tract infection J06.9 [facility] [address] [facility] [place] [address] Jul, Generalized anxiety disorder F41.1 and B ereavement Z63.4 [facility] [id number] [place] [address] Jul, Acute non-recurrent frontal sinusitis J0 1.10 [facility] [address] [facility] [id number] [address] [place] [address] Jul, [facility] [address] [facility] [id number] [address] [place] [address] Jul, Sore throat J02.9 and Uvulit is K12.2 [facility] [address] [facility] [place] [address] Jul, Generalized anxiety disorder F41.1 [facility] [address] [id number] [address] Jul, Caries K02.9 [facility] [address] [facility] [place] [address] Jun, Generalized anxiety disorder F41.1 [place] [facility] [id number] [place] [address] Jun, Generalized anxiety disorder F41.1 and B ereavement Z63.4 [facility] [address] [facility] [place] [address] May, Generalized anxiety disorder F41.1 [facility] [address] [facility] [id number] [address] [place] [address] May, Dysuria R30.0 [facility] [id number] [place] [address] May, Generalized anxiety disorder F41.1 and B ereavement Z63.4 [facility] [address] [address] May, [facility] [address] [address] Apr, Generalized anxiety disorder F41.1 and B ereavement Z63.4 [facility] [address] [address] Apr, Generalized anxiety disorder F41.1 [facility] [address] [place] [id number] [address] Mar, Caries K02.9 ; Dental examin ation Z01.20 ; Periodontitis K05.30 and Oral health maintenance status requiring routine preventive dental care K08.9 [facility] [address] [address] Mar, Generalized anxiety disorder F41.1 [facility] [address] [address] Mar, Gastrointestinal hemorrhage associated w ith gastroduodenitis K29.91 [facility] [address] [address] Mar, Generalized anxiety disorder F41.1 and B ereavement Z63.4 [facility] [id number] [place] [address] Mar, [facility] [address] [address] Mar, [facility] [address] [address] Mar, [facility] [address] [address] Mar, Tachycardia R00.0 and Essential hyperten boone I10 [place] [address] [address] Feb, Generalized anxiety disorder F41.1 [place] [address] [address] Feb, Generalized anxiety disorder F41.1 and B ereavement Z63.4 [place] [address] [address] Feb, Generalized anxiety disorder F41.1 [place] [address] [address] Feb, Generalized anxiety disorder F41.1 and B ereavement Z63.4 [place] [address] [address] Jan, [place] [address] [address] Jan, Breast cancer screening by mammogram Z12 .31 [place] [address] [address] Jan, Generalized anxiety disorder F41.1 and B ereavement Z63.4 [place] [address] [address] Jan, [place] [address] [address] December, Generalized anxiety disorder F41.1 and B ereavement Z63.4 [place] [address] [address] December, Diverticulitis K57.92 ; Dysuria R30.0 ; Other constipation K59.09 and Lower abdominal pain R10.30 [facility] [address] [facility] [id number] [address] [place] [address] Nov, Diverticulitis K57.92 [facility] [address] [address] Nov, Generalized anxiety disorder F41.1 and B ereavement Z63.4 [facility] [address] [address] Nov, Generalized anxiety disorder F41.1 and B ereavement Z63.4 [facility] [address] [address] Nov, Diverticulitis K57.92 [facility] [address] [place] [address] Oct, Diverticulitis K57.92 [facility] [address] [address] Oct, Diverticulitis K57.92 [facility] [address] [address] Oct, Generalized anxiety disorder F41.1 [facility] [id number] [place] [address] Oct, Right lower quadrant abdomin al pain R10.31 and Diverticulitis K57.92 [place] [address] [address] Sep, Generalized anxiety disorder F41.1 and B ereavement Z63.4 [place] [address] [address] Aug, [facility] [address] [address] Aug, Generalized anxiety disorder F41.1 and B ereavement Z63.4 [facility] [address] [id number] [place] [address] Aug, Caries K02.9 [facility] [id number] [place] [address] Jul, Generalized anxiety disorder F41.1 and B ereavement Z63.4 [facility] [address] [address] Jul, Other acute gastritis without hemorrhage K29.00 ; Generalized anxiety disorder F41.1 ; Tachycardia R00.0 and Essential hypertension I10 [facility] [address] [address] Jul, Generalized anxiety disorder F41.1 and B ereavement Z63.4 [place] [address] [address] Jun, Generalized anxiety disorder F41.1 and B ereavement Z63.4 [place] [address] [address] Jun, Generalized anxiety disorder F41.1 and B ereavement Z63.4 [facility] [address] [place] [id number] [address] Jun, Dental examination Z01.20 [place] [address] [address] May, Generalized anxiety disorder F41.1 and B ereavement Z63.4 [place] [address] [address] 08 May, 2018 Encounter for immunization Z23 [place] [address] [address] 08 May, 2018 Generalized anxiety disorder F41.1 and B ereavement Z63.4 [place] [address] [address] May, [place] [address] [address] 24 Apr, 2018 Generalized anxiety disorder F41.1 and B ereavement Z63.4 [place] [address] [address] 17 Apr, 2018 [place] [address] [address] 13 Apr, 2018 Diverticulitis K57.92 [place] [address] [address] Apr, Generalized anxiety disorder F41.1 and B ereavement Z63.4 [facility] [id number] [place] [address] Mar, [facility] [address] [facility] [id number] [place] [address] Mar, Diverticulitis K57.92 [facility] [address] [address] Mar, Generalized anxiety disorder F41.1 and B ereavement Z63.4 [place] [address] [address] Mar, Hypertension I10 [place] [address] [address] Mar, Generalized anxiety disorder F41.1 and B ereavement Z63.4 [place] [address] [address] Feb, Generalized anxiety disorder F41.1 and B ereavement Z63.4 [place] [address] [address] Feb, [place] [address] [address] Feb, Generalized anxiety disorder F41.1 and B ereavement Z63.4 [place] [address] [address] Feb, Generalized anxiety disorder F41.1 and B ereavement Z63.4 [place] [address] [address] Jan, Hypertension I10 and Acute non-recurrent maxillary sinusitis J01.00 [place] [address] [address] December, [place] [address] [address] December, Hypertension I10 [facility] [id number] [place] [address] December, Generalized anxiety disorder F41.1 [facility] [id number] [place] [address] 16 Oct, 2017 Encounter for dental examina tion Z01.20 [facility] [address] [address] 06 Oct, 2017 Encounter for dental examina tion Z01.20 [facility] [id number] [place] [address] Oct, Dental examination Z01.20 [facility] [address] [address] Oct, Generalized anxiety disorder F41.1 [facility] [address] [address] Aug, Dental examination Z01.20 [facility] [address] [address] Aug, Generalized anxiety disorder F41.1 [facility] [address] [address] Aug, [facility] [address] [address] Aug, Encounter for dental examina tion Z01.20 [facility] [address] [address] Aug, Subacute maxillary sinusitis J01.00 [facility] [address] [address] Jul, Dental examination Z01.20 [facility] [address] [address] Jul, Generalized anxiety disorder F41.1 [facility] [address] [address] Jul, Diverticulitis K57.92 [facility] [address] [address] Jun, Encounter for immunization Z23 [facility] [address] [address] Jun, Dental examination Z01.20 [facility] [address] [address] Jun, Generalized anxiety disorder F41.1 [facility] [address] [address] 07 Jun, 2017 Dental examination Z01.20 [facility] [address] [address] May, [facility] [address] [id number] May, Dental examination Z01.20 [facility] [address] [id number] May, Dental examination Z01.20 [facility] [id number] [place] [address] May, Dental examination Z01.20 [facility] [address] [address] May, [facility] [address] [address] May, Generalized anxiety disorder F41.1 [facility] [address] [address] May, Localized edema R60.0 ; Yeast vaginitis B37.3 and Gastroesophageal reflux disease with esophagitis K21.0 [facility] [address] [id number] Apr, Dental examination Z01.20 [facility] [id number] [place] [address] Apr, Dental examination Z01.20 [facility] [id number] [place] [address] 05 Apr, 2017 Dental examination Z01.20 [facility] [address] [address] Mar, Dyspepsia R10.13 [facility] [address] [address] Mar, Generalized anxiety disorder F41.1 [facility] [address] [address] Mar, Encounter for dental examina tion Z01.20 [facility] [address] [id number] Mar, [facility] [address] [id number] Mar, Dental examination Z01.20 [facility] [address] [address] Feb, Hypertension I10 and Tachycardia R00.0 [facility] [address] [id number] [place] [address] Feb, [facility] [address] [address] Feb, Generalized anxiety disorder F41.1 [facility] [address] [id number] Feb, Dental examination Z01.20 [facility] [address] [address] Jan, Generalized anxiety disorder F41.1 [facility] [address] [address] December, Generalized anxiety disorder F41.1 [facility] [address] [id number] December, Encounter for dental examination Z01.20 [facility] [address] [address] Nov, [facility] [address] [address] Nov, [place] [address] [address] Nov, Generalized anxiety disorder F41.1 [facility] [address] [address] Oct, [facility] [address] [facility] [place] [id number] Oct, Dental examination Z01.20 [place] [address] [address] Oct, Vaginal dryness N89.8 [place] [address] [address] Oct, Pseudoseizures F44.5 [place] [address] [address] Oct, Generalized anxiety disorder F41.1 [place] [address] [address] Sep, Abnormal uterine bleeding (AUB) N93.9 ; Vaginal dryness N89.8 and Screening breast examination Z12.39 [place] [address] [address] Sep, Dental examination Z01.20 [place] [address] [address] Sep, Generalized anxiety disorder F41.1 [place] [address] [address] 06 Sep, 2016 Unspecified ovarian cyst, right side N83 .201 ; Unspecified ovarian cyst, left side N83.202 ; Yeast infection of the vagina B37.3 ; Mitral valve prolapse I34.1 and Hypertension I10 [place] [address] [address] Aug, Generalized anxiety disorder F41.1 [place] [address] [address] Jul, [facility] [address] [address] Jul, Generalized anxiety disorder F41.1 [facility] [address] [address] Jun, Generalized anxiety disorder F41.1 [facility] [address] [address] May, Encounter for immunization Z23 [facility] [address] [address] 17 May, 2016 Generalized anxiety disorder F41.1 and D epressive disorder, not elsewhere classified F32.9 [facility] [address] [address] 28 Apr, 2016 Hypertension I10 [facility] [address] [address] Apr, Cervicalgia M54.2 [facility] [address] [facility] [id number] [place] [address] 12 Apr, 2016 Cervicalgia M54.2 [facility] [address] [address] 09 Mar, 2016 Generalized anxiety disorder F41.1 and D epressive disorder, not elsewhere classified F32.9 [facility] [address] [id number] 14 Feb, 2016 Visit for dental examination Z01.20 [facility] [address] [address] Feb, Pseudoseizures F44.5 ; Migraine without status migrainosus, not intractable, unspecified migraine type G43.909 and Essential hypertension I10 [facility] [address] [id number] Feb, Dental examination Z01.20 [facility] [address] [address] Feb, Generalized anxiety disorder F41.1 and D epressive disorder, not elsewhere classified F32.9 [place] [address] [address] Jan, Tachycardia R00.0 [place] [address] [address] December, Eustachian tube dysfunction, bilateral H 69.83 [place] [address] [address] December, Generalized anxiety disorder F41.1 and D epressive disorder, not elsewhere classified F32.9 [place] [address] [address] Nov, [place] [address] [address] Nov, [place] [address] [address] Nov, Hypertension I10 ; Onychomycosis B35.1 ; [...] and Complex cyst of left ovary N83.29 [place] [address] [address] 14 Nov, 2015 Sinusitis J32.9 [place] [address] [address] Oct, Complex cyst of left ovary N83.29 [place] [address] [address] Oct, Onychomycosis B35.1 [facility] [address] [facility] [place] [id number] Oct, Dental examination Z01.20 [place] [address] [address] 09 Oct, 2016 Well woman exam Z01.419 [...] R92.2 and History of colon polyps Z86.010 [place] [address] [address] Oct, Generalized anxiety disorder F41.1 and D epressive disorder, not elsewhere classified F32.9 [place] [address] [address] Sep, Hypertension I10 and Onychomycosis B35.1 [place] [address] [address] 16 Sep, 2015 Skin tags, multiple acquired L91.8 [place] [address] [address] Aug, [place] [address] [address] Aug, [place] [address] [address] Aug, [address] [address] Aug, Generalized anxiety disorder F41.1 and D epressive disorder, not elsewhere classified F32.9 [place] [address] [address] Jul, Skin lesion L98.9 [place] [address] [address] Jun, Generalized anxiety disorder F41.1 and D epressive disorder, not elsewhere classified F32.9 [facility] [address] [address] Jun, [facility] [address] [address] Jun, Generalized anxiety disorder F41.1 [facility] [address] [address] May, Encounter for immunization Z23 and Right shoulder pain M25.511 [facility] [address] [address] Apr, [facility] [address] [address] Apr, Generalized anxiety disorder 300.02 and Depressive disorder, not elsewhere classified 311 [facility] [address] [id number] Mar, Dental examination V72.2 [facility] [address] [address] Mar, Generalized anxiety disorder 300.02 and Depressive disorder, not elsewhere classified 311 [facility] [address] [address] Mar, Depression, major, recurrent, 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.35 and 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 [facility] [address] [address] Feb, Generalized anxiety disorder 300.02 and Depressive disorder, not elsewhere classified 311 [facility] [address] [id number] Feb, Dental examination V72.2 [facility] [address] [address] Jan, Generalized anxiety disorder 300.02 and Depressive disorder, not elsewhere classified 311 [facility] [address] [address] Jan, [facility] [address] [address] 12 Dec, 2014 Generalized anxiety disorder 300.02 and Depressive disorder, not elsewhere classified 311 [facility] [id number] [place] [address] 08 Dec, 2014 Major depressive disorder, recurrent, un specified 296.30 and Panic disorder with agoraphobia 300.21 [facility] [id number] [place] [address] 14 Nov, 2014 [facility] [address] [address] 13 Nov, 2014 [facility] [address] [address] Oct, [facility] [address] [address] Oct, [facility] [address] [address] Oct, [facility] [address] [address] Oct, [facility] [id number] [place] [address] Sep, [facility] [address] [address] Sep, [facility] [id number] [place] [address] Sep, [facility] [id number] [place] [address] Sep, [facility] [id number] [place] [address] Sep, [facility] [address] [address] Sep, [facility] [id number] [place] [address] Sep, [facility] [address] [address] Sep, [facility] [address] [id number] [place] [address] Sep, 2014 [facility] [address] [id number] [place] [address] Sep, 2014 [facility] [address] [id number] [place] [address] Aug, [facility] [address] [id number] [place] [address] Aug, [facility] [address] [id number] [place] [address] Jul, [facility] [address] [id number] [place] [address] Jul, [facility] [address] [id number] [place] [address] Jul, [facility] [address] [id number] [place] [address] Jul, [facility] [address] [id number] [place] [address] Jul, [facility] [address] [id number] [place] [address] Jul, [facility] [address] [id number] [place] [address] 05 Jul, 2014 [facility] [address] [id number] [place] [address] 05 Jul, 2014 [facility] [address] [id number] [place] [address] 04 Jul, 2014 [facility] [address] [id number] [place] [address] Jul, [facility] [address] [id number] [place] [address] 02 Jul, 2014 [facility] [address] [id number] [place] [address] Jul, [facility] [address] [id number] [place] [address] Jun, [facility] [address] [facility] [id number] [place] [address] Jun, [facility] [address] [id number] [place] [address] May, [facility] [address] [id number] [place] [address] May, [facility] [address] [id number] [place] [address] May, [facility] [address] [id number] [place] [address] May, [facility] [address] [id number] [place] [address] May, [facility] [address] [id number] [place] [address] May, [facility] [address] [id number] [place] [address] May, [facility] [address] [id number] [place] [address] May, [facility] [address] [id number] [place] [address] May, [facility] [address] [id number] [place] [address] May, [facility] [address] [id number] [place] [address] May, [facility] [address] [id number] [place] [address] May, [facility] [address] [id number] [place] [address] Apr, [facility] [address] [id number] [place] [address] 30 Apr, 2014 [facility] [address] [id number] [place] [address] 29 Apr, 2013 [facility] [address] [facility] [id number] [place] [address] Apr, [facility] [address] [facility] [id number] [place] [address] Apr, [facility] [address] [id number] [place] [address] Apr, [facility] [address] [id number] [place] [address] Feb, [facility] [address] [facility] [id number] [place] [address] Feb, [facility] [address] [facility] [id number] [place] [address] Feb, [facility] [address] [id number] [place] [address] Feb, [facility] [address] [id number] [place] [address] Feb, [facility] [address] [id number] [place] [address] Feb, [facility] [address] [id number] [place] [address] Jan, [facility] [address] [id number] [place] [address] Jan, [facility] [address] [id number] [place] [address] Jan, [facility] [address] [id number] [place] [address] Jan, [facility] [address] [id number] [place] [address] Jan, [facility] [address] [id number] [place] [address] Jan, [facility] [address] [id number] [place] [address] Jan, [facility] [address] [id number] [place] [address] Jan, [facility] [address] [id number] [place] [address] December, [facility] [address] [id number] [place] [address] December, [facility] [address] [id number] [place] [address] December, [facility] [address] [id number] [place] [address] December, [facility] [address] [facility] [id number] [place] [address] Nov, [facility] [address] [id number] [place] [address] Nov, [facility] [address] [id number] [place] [address] Nov, [facility] [address] [id number] [place] [address] Nov, [facility] [address] [id number] [place] [address] Nov, [facility] [address] [id number] [place] [address] Nov, [facility] [address] [id number] [place] [address] Nov, [facility] [address] [id number] [place] [address] Nov, [facility] [address] [id number] [place] [address] Oct, [facility] [address] [id number] [place] [address] Oct, [facility] [address] [id number] [place] [address] Sep, [facility] [address] [id number] [place] [address] Sep, [facility] [address] [id number] [place] [id number] Sep, [facility] [address] [id number] [place] [address] Sep, [facility] [address] [id number] [place] [address] Sep, [facility] [address] [id number] [place] [address] Sep, [facility] [address] [id number] [place] [address] Aug, [facility] [address] [id number] [place] [address] Aug, [facility] [address] [id number] [place] [address] Aug, [facility] [address] [id number] [place] [address] Aug, [facility] [id number] [place] [address] Jul, [facility] [address] [id number] [place] [address] Jul, [facility] [address] [id number] [place] [address] Jul, [facility] [address] [id number] [place] [address] Jul, [facility] [address] [id number] [place] [address] Jun, [facility] [address] [id number] [place] [address] Jun, [facility] [id number] [place] [address] 24 May, 2013 [facility] [address] [id number] [place] [address] May, [facility] [address] [id number] [place] [address] May, [facility] [address] [id number] [place] [address] May, [facility] [address] [id number] [place] [address] May, [facility] [address] [id number] [place] [address] 17 Apr, 2013 [facility] [address] [id number] [place] [address] Apr, [facility] [address] [facility] [id number] [place] [address] Mar, [facility] [address] [id number] [place] [address] Mar, [facility] [address] [id number] [place] [address] Mar, [facility] [address] [id number] [place] [address] Mar, [facility] [address] [id number] [place] [address] Feb, [facility] [address] [id number] [place] [address] Feb, [facility] [address] [id number] [place] [address] Feb, [facility] [address] [id number] [place] [address] Feb, [facility] [address] [id number] [place] [address] Feb, [facility] [address] [facility] [id number] [place] [address] Jan, [facility] [address] [id number] [place] [address] Jan, [facility] [address] [id number] [place] [address] 14 Jan, 2013 [facility] [address] [id number] [place] [address] Jan, [facility] [address] [id number] [place] [address] Jan, [facility] [address] [id number] [place] [address] December, [facility] [address] [id number] [place] [address] December, [facility] [address] [id number] [place] [address] Nov, [facility] [address] [id number] [place] [address] Nov, [facility] [address] [id number] [place] [address] Oct, [facility] [address] [id number] [place] [address] Oct, [facility] [address] [id number] [place] [address] Oct, [facility] [address] [id number] [place] [address] Sep, [facility] [address] [id number] [place] [address] Aug, [facility] [address] [id number] [place] [address] Aug, [facility] [address] [id number] [place] [address] Aug, [facility] [address] [id number] [place] [address] Aug, [facility] [address] [id number] [place] [address] Jul, [facility] [address] [id number] [place] [address] Jul, [facility] [address] [id number] [place] [address] Jul, [facility] [address] [id number] [place] [address] Jul, [facility] [address] [id number] [place] [address] Jul, [facility] [address] [id number] [place] [address] Jul, [facility] [id number] [place] [address] Jul, [facility] [address] [id number] [place] [address] Jul, [facility] [address] [id number] [place] [address] Jun, [facility] [address] [id number] [place] [address] Jun, [facility] [id number] [place] [address] Jun, [facility] [id number] [place] [address] Jun, [facility] [address] [id number] [place] [address] Jun, [facility] [id number] [place] [address] Jun, [facility] [id number] [place] [address] May, [facility] [address] [id number] [place] [address] May, [facility] [address] [id number] [place] [address] May, [facility] [id number] [place] [address] May, [facility] [address] [id number] [place] [address] Apr, [facility] [id number] [place] [address] Apr, [facility] [address] [id number] [place] [address] 08 Mar, 2012 [facility] [address] [id number] [place] [address] 28 Jan, 2012 [facility] [address] [id number] [place] [address] 20 Jan, 2012 [facility] [address] [id number] [place] [address] 16 Jan, 2012 [facility] [address] [id number] [place] [address] 15 Jan, 2012 [facility] [address] [id number] [place] [address] 14 Jan, 2012 [facility] [address] [id number] [place] [address] 14 Jan, 2012 [facility] [address] [id number] [place] [address] 07 Jan, 2012 [facility] [address] [id number] [place] [address] December, [facility] [address] [id number] [place] [address] December, [facility] [address] [id number] [place] [address] December, [facility] [address] [id number] [place] [address] December, [facility] [address] [id number] [place] [address] Nov, [facility] [address] [id number] [place] [address] 05 Nov, 2011 [facility] [address] [id number] [place] [address] 29 Oct, 2011 [facility] [address] [id number] [place] [address] Oct, [facility] [address] [id number] [place] [address] Oct, [facility] [address] [id number] [place] [address] Sep, [facility] [address] [id number] [place] [address] Sep, [facility] [address] [id number] [place] [address] Sep, [facility] [address] [id number] [place] [address] Aug, [facility] [address] [id number] [place] [address] Aug, [facility] [address] [id number] [place] [address] Aug, [facility] [address] [id number] [place] [address] Aug, [facility] [address] [id number] [place] [address] Aug, [facility] [address] [id number] [place] [address] Aug, [facility] [id number] [place] [address] Aug, [facility] [address] [id number] [place] [address] Jul, [facility] [address] [id number] [place] [address] Jul, [facility] [address] [id number] [place] [address] Jun, [facility] [address] [id number] [place] [address] Jun, [facility] [address] [id number] [place] [address] 17 Jun, 2011 [facility] [address] [id number] [place] [address] 15 Jun, 2011 [facility] [address] [id number] [place] [address] 14 Jun, 2011 [facility] [address] [id number] [place] [address] 14 Jun, 2011 [facility] [address] [id number] [place] [address] Jun, [facility] [address] [id number] [place] [address] Jun, [facility] [address] [id number] [place] [address] Jun, [facility] [address] [id number] [place] [address] Jun, [facility] [address] [id number] [place] [address] May, [facility] [address] [id number] [place] [address] May, [facility] [address] [id number] [place] [address] May, [facility] [address] [id number] [place] [address] 24 May, 2011 [facility] [address] [id number] [place] [address] 18 May, 2011 [facility] [address] [id number] [place] [address] May, [facility] [address] [id number] [place] [address] Feb, [facility] [address] [id number] [place] [address] December, [facility] [id number] [place] [address] Jul, [facility] [address] [id number] [place] [address] Jul, [facility] [address] [id number] [place] [address] Jul, [facility] [address] [id number] [place] [address] Jul, [facility] [id number] [place] [address] Jun, [facility] [id number] [place] [address] Jul, [facility] [id number] [place] [address] Jul, [facility] [id number] [place] [address] Jul, [facility] [address] [address] Jul, [facility] [id number] [place] [address] Jul, [facility] [id number] [place] [address] Jul, [facility] [id number] [place] [address] Jan, [facility] [id number] [place] [address] 16 Sep, 2008 [facility] [id number] [place] [address] Sep, IMMUNIZATIONS No Known Immunizations SOCIAL HISTORY [...]
--- OUTSIDE RECORDS SUMMARY | 2020-01-27 10:08 | XMS REPORT ---
Author Author Silvia MERCHANT Organization [facility] Address [address] [place] [address] Care Team Providers Care Bet Taker Name Role Phone KVNG MERCHANT Unavailable PROBLEMS Type Condition ICD9-CM Code OXW11-FV Code Onset Dates Condition S tatus SNOMED Code Problem Hypertension I10 Active 9989859 3 Problem Generalized anxiety disorder F41.1 A ctive 373137866 Problem History of colon polyps Z86.010 Active 465049364 Problem History of diverticulitis Z87.19 Acti ve [id number] Problem Family history of diabetes mellitus Z83.3 Active 281056889 Problem Excessive and frequent menstruation with irregular cycle N92.1 Active 382577010 Problem Hot flashes N95.1 Active 57123138 8 Problem Gastroesophageal reflux disease with esophagitis K 21.0 Active 439328516 Problem History of ovarian cyst Z87.42 Active 41047429 Problem Diverticulitis K57.92 Active 01721 6006 Problem Dense breast tissue R92.2 Active 566167496 Problem Perimenopausal N95.1 Active 47449 3033519796 Problem Mitral valve prolapse I34.1 Active 502352434 Problem Abnormal uterine bleeding (AUB) N93.9 Active [id number] Problem Tachycardia R00.0 Active 4549922 ALLERGIES No Information ENCOUNTERS Encounter Location Date Diagnosis [facility] [address] [id number] [place] [address] Nov, [facility] [address] [facility] [id number] [place] [address] Oct, [facility] [address] [facility] [id number] [address] [place] [address] Oct, Acute non-recurrent frontal sinusitis J01.10 [facility] [address] [facility] [place] [address] Sep, Generalized anxiety disorder F41.1 and B ereavement Z63.4 [facility] [address] [facility] [place] [address] 17 Sep, 2019 [facility] [address] [address] Sep, Generalized anxiety disorder F41.1 and B ereavement Z63.4 [facility] [address] [address] Aug, Generalized anxiety disorder F41.1 and B ereavement Z63.4 [facility] [address] [facility] [place] [address] Aug, Generalized anxiety disorder F41.1 [facility] [address] [address] Aug, Viral upper respiratory tract infection J06.9 [facility] [address] [id number] [place] [address] Jul, Generalized anxiety disorder F41.1 and B ereavement Z63.4 [facility] [id number] [place] [address] Jul, Acute non-recurrent frontal sinusitis J0 1.10 [facility] [address] [facility] [id number] [address] [place] [address] Jul, [facility] [address] [facility] [id number] [address] [place] [address] Jul, Sore throat J02.9 and Uvulit is K12.2 [facility] [address] [facility] [place] [address] Jul, Generalized anxiety disorder F41.1 [facility] [address] [facility] [address] Jul, Caries K02.9 [facility] [address] [facility] [place] [address] Jun, Generalized anxiety disorder F41.1 [place] [id number] [place] [address] Jun, Generalized anxiety disorder F41.1 and B ereavement Z63.4 [facility] [id number] [place] [address] May, Generalized anxiety disorder F41.1 [facility] [address] [facility] [id number] [address] [place] [address] May, Dysuria R30.0 [facility] [address] [address] May, Generalized anxiety disorder F41.1 and B ereavement Z63.4 [place] [address] [address] May, [place] [address] [address] Apr, Generalized anxiety disorder F41.1 and B ereavement Z63.4 [facility] [id number] [place] [address] Apr, Generalized anxiety disorder F41.1 [facility] [address] [facility] [place] [address] Mar, Caries K02.9 ; Dental examin ation Z01.20 ; Periodontitis K05.30 and Oral health maintenance status requiring routine preventive dental care K08.9 [place] [address] [address] Mar, Generalized anxiety disorder F41.1 [place] [address] [address] Mar, Gastrointestinal hemorrhage associated w ith gastroduodenitis K29.91 [place] [address] [address] Mar, Generalized anxiety disorder F41.1 and B ereavement Z63.4 [place] [address] [address] Mar, [facility] [address] [address] Mar, [facility] [address] [address] Mar, [facility] [address] [address] Mar, Tachycardia R00.0 and Essential hyperten boone I10 [facility] [address] [address] Feb, Generalized anxiety disorder F41.1 [place] [address] [address] Feb, Generalized anxiety disorder F41.1 and B ereavement Z63.4 [place] [address] [address] Feb, Generalized anxiety disorder F41.1 [place] [address] [address] Feb, Generalized anxiety disorder F41.1 and B ereavement Z63.4 [place] [address] [address] Jan, [facility] [address] [address] Jan, Breast cancer screening by mammogram Z12 .31 [facility] [address] [address] Jan, Generalized anxiety disorder F41.1 and B ereavement Z63.4 [facility] [address] [address] Jan, [facility] [address] [address] December, Generalized anxiety disorder F41.1 and B ereavement Z63.4 [facility] [address] [address] December, Diverticulitis K57.92 ; Dysuria R30.0 ; Other constipation K59.09 and Lower abdominal pain R10.30 [facility] [address] [place] [address] Nov, Diverticulitis K57.92 [facility] [address] [address] Nov, Generalized anxiety disorder F41.1 and B ereavement Z63.4 [place] [address] [address] Nov, Generalized anxiety disorder F41.1 and B ereavement Z63.4 [place] [address] [address] Nov, Diverticulitis K57.92 [facility] [address] [place] [address] Oct, Diverticulitis K57.92 [place] [address] [address] Oct, Diverticulitis K57.92 [place] [address] [address] Oct, Generalized anxiety disorder F41.1 [facility] [address] [place] [id number] [address] [place] [address] Oct, Right lower quadrant abdomin al pain R10.31 and Diverticulitis K57.92 [place] [address] [address] Sep, Generalized anxiety disorder F41.1 and B ereavement Z63.4 [place] [address] [address] Aug, [place] [address] [address] Aug, Generalized anxiety disorder F41.1 and B ereavement Z63.4 [facility] [address] [place], [place] [id number] [place] [address] Aug, Caries K02.9 [place] [address] [address] Jul, Generalized anxiety disorder F41.1 and B ereavement Z63.4 [place] [address] [address] Jul, Other acute gastritis without hemorrhage K29.00 ; Generalized anxiety disorder F41.1 ; Tachycardia R00.0 and Essential hypertension I10 [place] [address] [address] Jul, Generalized anxiety disorder F41.1 and B ereavement Z63.4 [place] [address] [address] Jun, Generalized anxiety disorder F41.1 and B ereavement Z63.4 [place] [address] [address] Jun, Generalized anxiety disorder F41.1 and B ereavement Z63.4 [facility] [address] [address] Jun, Dental examination Z01.20 [place] [address] [address] May, Generalized anxiety disorder F41.1 and B ereavement Z63.4 [place] [address] [address] May, Encounter for immunization Z23 [place] [address] [address] May, Generalized anxiety disorder F41.1 and B ereavement Z63.4 [place] [address] [address] May, [place] [address] [address] Apr, Generalized anxiety disorder F41.1 and B ereavement Z63.4 [facility] [address] [facility] [place] [address] Apr, [facility] [id number] [place] [address] Apr, Diverticulitis K57.92 [facility] [address] [facility] [place] [address] Apr, Generalized anxiety disorder F41.1 and B ereavement Z63.4 [facility] [address] [facility] [id number] [place] [address] Mar, [facility] [address] [facility] [id number] [address] [place] [address] Mar, Diverticulitis K57.92 [facility] [address] [address] Mar, Generalized anxiety disorder F41.1 and B ereavement Z63.4 [facility] [id number] [place] [address] Mar, Hypertension I10 [facility] [address] [address] Mar, Generalized anxiety disorder F41.1 and B ereavement Z63.4 [facility] [id number] [place] [address] Feb, Generalized anxiety disorder F41.1 and B ereavement Z63.4 [facility] [id number] [place] [address] Feb, [facility] [address] [facility] [place] [address] Feb, Generalized anxiety disorder F41.1 and B ereavement Z63.4 [facility] [address] [facility] [place] [address] Feb, Generalized anxiety disorder F41.1 and B ereavement Z63.4 [facility] [address] [address] Jan, Hypertension I10 and Acute non-recurrent maxillary sinusitis J01.00 [facility] [address] [address] December, [facility] [address] [address] December, Hypertension I10 [facility] [address] [address] December, Generalized anxiety disorder F41.1 [facility] [address] [place] [address] Oct, Encounter for dental examina tion Z01.20 [facility] [address] [place] [address] Oct, Encounter for dental examina tion Z01.20 [facility] [address] [place] [address] Oct, Dental examination Z01.20 [facility] [address] [address] Oct, Generalized anxiety disorder F41.1 [facility] [address] [place] [address] Aug, Dental examination Z01.20 [facility] [address] [address] Aug, Generalized anxiety disorder F41.1 [facility] [address] [address] Aug, [facility] [address] [place] [address] Aug, Encounter for dental examina tion Z01.20 [facility] [address] [address] Aug, Subacute maxillary sinusitis J01.00 [facility] [address] [place] [address] Jul, Dental examination Z01.20 [facility] [address] [address] Jul, Generalized anxiety disorder F41.1 [facility] [address] [address] Jul, Diverticulitis K57.92 [facility] [address] [address] Jun, Encounter for immunization Z23 [facility] [address] [address] Jun, Dental examination Z01.20 [facility] [address] [address] 14 Jun, 2017 Generalized anxiety disorder F41.1 [facility] [address] [address] Jun, Dental examination Z01.20 [facility] [address] [address] May, [facility] [address] [id number] May, Dental examination Z01.20 [facility] [address] [id number] May, Dental examination Z01.20 [facility] [address] [address] May, Dental examination Z01.20 [facility] [address] [address] May, [facility] [address] [address] May, Generalized anxiety disorder F41.1 [facility] [address] [address] 05 May, 2017 Localized edema R60.0 ; Yeast vaginitis B37.3 and Gastroesophageal reflux disease with esophagitis K21.0 [facility] [address] [id number] 26 Apr, 2017 Dental examination Z01.20 [facility] [address] [address] 21 Apr, 2017 Dental examination Z01.20 [facility] [address] [address] 05 Apr, 2017 Dental examination Z01.20 [facility] [address] [address] Mar, Dyspepsia R10.13 [facility] [address] [address] Mar, Generalized anxiety disorder F41.1 [facility] [address] [address] Mar, Encounter for dental examina tion Z01.20 [facility] [address] [id number] Mar, [facility] [address] [id number] Mar, Dental examination Z01.20 [facility] [address] [address] Feb, Hypertension I10 and Tachycardia R00.0 [facility] [address] [address] Feb, [facility] [address] [address] Feb, Generalized anxiety disorder F41.1 [facility] [address] [id number] Feb, Dental examination Z01.20 [facility] [address] [address] Jan, Generalized anxiety disorder F41.1 [facility] [address] [address] December, Generalized anxiety disorder F41.1 [facility] [address] [id number] December, Encounter for dental examination Z01.20 [facility] [address] [address] Nov, [facility] [address] [address] Nov, [facility] [address] [address] Nov, Generalized anxiety disorder F41.1 [facility] [address] [address] Oct, [facility] [address] [id number] Oct, Dental examination Z01.20 [facility] [address] [address] Oct, Vaginal dryness N89.8 [facility] [address] [address] Oct, Pseudoseizures F44.5 [facility] [address] [address] Oct, Generalized anxiety disorder F41.1 [facility] [address] [address] Sep, Abnormal uterine bleeding (AUB) N93.9 ; Vaginal dryness N89.8 and Screening breast examination Z12.39 [facility] [address] [address] Sep, Dental examination Z01.20 [facility] [address] [address] Sep, Generalized anxiety disorder F41.1 [facility] [address] [address] 06 Sep, 2016 Unspecified ovarian cyst, right side N83 .201 ; Unspecified ovarian cyst, left side N83.202 ; Yeast infection of the vagina B37.3 ; Mitral valve prolapse I34.1 and Hypertension I10 [facility] [address] [address] 18 Aug, 2016 Generalized anxiety disorder F41.1 [facility] [address] [address] 28 Jul, 2016 [facility] [address] [address] Jul, Generalized anxiety disorder F41.1 [facility] [address] [address] Jun, Generalized anxiety disorder F41.1 [facility] [address] [address] 28 May, 2016 Encounter for immunization Z23 [facility] [address] [address] 17 May, 2016 Generalized anxiety disorder F41.1 and D epressive disorder, not elsewhere classified F32.9 [facility] [address] [address] 28 Apr, 2016 Hypertension I10 [facility] [address] [address] 22 Apr, 2016 Cervicalgia M54.2 [facility] [address] [facility] [id number] [address] [place] [address] Apr, Cervicalgia M54.2 [facility] [address] [address] 09 Mar, 2016 Generalized anxiety disorder F41.1 and D epressive disorder, not elsewhere classified F32.9 [facility] [address] [facility] [place] [address] 14 Feb, 2016 Visit for dental examination Z01.20 [facility] [address] [address] 11 Feb, 2016 Pseudoseizures F44.5 ; Migraine without status migrainosus, not intractable, unspecified migraine type G43.909 and Essential hypertension I10 [facility] [address] [facility] [place] [id number] 06 Feb, 2016 Dental examination Z01.20 [place] [address] [address] Feb, Generalized anxiety disorder F41.1 and D epressive disorder, not elsewhere classified F32.9 [place] [address] [address] Jan, Tachycardia R00.0 [place] [address] [address] December, Eustachian tube dysfunction, bilateral H 69.83 [place] [address] [address] December, Generalized anxiety disorder F41.1 and D epressive disorder, not elsewhere classified F32.9 [place] [address] [address] Nov, [place] [address] [address] Nov, [place] [address] [address] Nov, Hypertension I10 ; Onychomycosis B35.1 ; [...] and Complex cyst of left ovary N83.29 [place] [address] [address] 14 Nov, 2015 Sinusitis J32.9 [place] [address] [address] Oct, Complex cyst of left ovary N83.29 [facility] [id number] [place] [address] Oct, Onychomycosis B35.1 [facility] [address] [facility] [place] [id number] 17 Oct, 2015 Dental examination Z01.20 [facility] [id number] [place] [address] 09 Oct, 2015 Well woman exam Z01.419 [...] History of colon polyps Z86.010 [place] [address] [address] Oct, Generalized anxiety disorder F41.1 and D epressive disorder, not elsewhere classified F32.9 [place] [address] [address] Sep, Hypertension I10 and Onychomycosis B35.1 [place] [address] [address] Sep, Skin tags, multiple acquired L91.8 [place] [address] [address] Aug, [place] [address] [address] Aug, [place] [address] [address] Aug, [place] [address] [address] Aug, Generalized anxiety disorder F41.1 and D epressive disorder, not elsewhere classified F32.9 [facility] [address] [address] Jul, Skin lesion L98.9 [facility] [address] [address] Jun, Generalized anxiety disorder F41.1 and D epressive disorder, not elsewhere classified F32.9 [facility] [address] [address] Jun, [facility] [address] [address] Jun, Generalized anxiety disorder F41.1 [place] [address] [address] May, Encounter for immunization Z23 and Right shoulder pain M25.511 [place] [address] [address] Apr, [facility] [address] [address] 14 Apr, 2015 Generalized anxiety disorder 300.02 and Depressive disorder, not elsewhere classified 311 [facility] [address] [id number] Mar, Dental examination V72.2 [place] [address] [address] Mar, Generalized anxiety disorder 300.02 and Depressive disorder, not elsewhere classified 311 [facility] [address] [address] Mar, Depression, major, recurrent, 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.35 and 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 [facility] [address] [address] Feb, Generalized anxiety disorder 300.02 and Depressive disorder, not elsewhere classified 311 [facility] [address] [id number] Feb, Dental examination V72.2 [facility] [address] [address] [place] [address] 09 Jan, 2015 Generalized anxiety disorder 300.02 and Depressive disorder, not elsewhere classified 311 [facility] [address] [address] Jan, [facility] [address] [id number] [place] [address] December, Generalized anxiety disorder 300.02 and Depressive disorder, not elsewhere classified 311 [facility] [id number] [place] [address] December, Major depressive disorder, recurrent, un specified 296.30 and Panic disorder with agoraphobia 300.21 [facility] [address] [address] Nov, [facility] [address] [address] Nov, [facility] [address] [address] Oct, [facility] [id number] [place] [address] Oct, [facility] [address] [address] Oct, [facility] [address] [id number] [place] [address] Oct, [facility] [address] [address] Sep, [facility] [address] [id number] [place] [address] Sep, [facility] [address] [address] Sep, [facility] [id number] [place] [address] Sep, [facility] [address] [address] [address] Sep, [facility] [address] [id number] [place] [address] 17 Sep, 2014 [facility] [address] [id number] [place] [address] Sep, 2014 [facility] [address] [id number] [place] [address] Sep, 2014 [facility] [address] [id number] [place] [address] Sep, 2014 [facility] [address] [id number] [place] [address] Sep, 2014 [facility] [address] [id number] [place] [address] Aug, [facility] [address] [id number] [place] [address] Aug, [facility] [id number] [place] [address] Jul, [facility] [address] [id number] [place] [address] Jul, [facility] [id number] [place] [address] Jul, [facility] [address] [id number] [place] [address] Jul, [facility] [address] [id number] [place] [address] Jul, [facility] [address] [id number] [place] [address] Jul, [facility] [address] [id number] [place] [address] 05 Jul, 2014 [facility] [address] [id number] [place] [address] 05 Jul, 2014 [facility] [address] [id number] [place] [address] 04 Jul, 2014 [facility] [id number] [place] [address] Jul, [facility] [address] [facility] [id number] [place] [address] Jul, [facility] [address] [facility] [id number] [place] [address] Jul, [facility] [address] [id number] [place] [address] Jun, [facility] [address] [id number] [place] [address] Jun, [facility] [address] [facility] [id number] [place] [address] May, [facility] [address] [id number] [place] [address] May, [facility] [address] [id number] [place] [address] May, [facility] [address] [id number] [place] [address] May, [facility] [address] [id number] [place] [address] May, [facility] [address] [id number] [place] [address] May, [facility] [address] [id number] [place] [address] May, [facility] [address] [id number] [place] [address] May, [facility] [address] [id number] [place] [address] May, [facility] [address] [id number] [place] [address] May, [facility] [address] [id number] [place] [address] May, [facility] [address] [id number] [place] [address] May, [facility] [address] [id number] [place] [address] 30 Apr, 2013 [facility] [address] [id number] [place] [address] 30 Apr, 2013 [facility] [address] [id number] [place] [address] Apr, 2013 [facility] [address] [id number] [place] [address] Apr, 2013 [facility] [address] [id number] [place] [address] Apr, 2013 [facility] [address] [facility] [id number] [place] [address] Apr, [facility] [address] [id number] [place] [address] Feb, [facility] [address] [id number] [place] [address] Feb, [facility] [address] [id number] [place] [address] Feb, [facility] [address] [id number] [place] [address] Feb, [facility] [address] [id number] [place] [address] Feb, [facility] [address] [id number] [place] [address] Feb, [facility] [address] [id number] [place] [address] Jan, [facility] [address] [id number] [place] [address] Jan, [facility] [address] [id number] [place] [address] Jan, [facility] [address] [id number] [place] [address] Jan, [facility] [address] [id number] [place] [address] Jan, [facility] [address] [id number] [place] [address] Jan, [facility] [address] [id number] [place] [address] Jan, [facility] [address] [id number] [place] [address] Jan, [facility] [address] [id number] [place] [address] December, [facility] [address] [id number] [place] [address] December, [facility] [address] [id number] [place] [address] December, [facility] [address] [id number] [place] [address] December, [facility] [address] [id number] [place] [address] Nov, [facility] [address] [id number] [place] [address] Nov, [facility] [address] [id number] [place] [address] Nov, [facility] [address] [id number] [place] [address] Nov, [facility] [address] [id number] [place] [address] Nov, [facility] [address] [id number] [place] [address] Nov, [facility] [address] [id number] [place] [address] Nov, [facility] [address] [id number] [place] [address] Nov, [facility] [address] [id number] [place] [address] Oct, [facility] [address] [id number] [place] [address] Oct, [facility] [address] [facility] [id number] [place] [address] Sep, [facility] [address] [facility] [id number] [place] [address] Sep, [facility] [address] [facility] [id number] [place] [place] [id number] Sep, [facility] [address] [id number] [place] [address] Sep, [facility] [address] [id number] [place] [address] Sep, [facility] [address] [id number] [place] [address] Sep, [facility] [address] [id number] [place] [address] Aug, [facility] [address] [id number] [place] [address] Aug, [facility] [address] [id number] [place] [address] Aug, [facility] [address] [id number] [place] [address] Aug, [facility] [address] [id number] [place] [address] Jul, [facility] [address] [id number] [place] [address] Jul, [facility] [address] [id number] [place] [address] Jul, [facility] [address] [id number] [place] [address] Jul, [facility] [address] [id number] [place] [address] Jun, [facility] [address] [id number] [place] [address] Jun, [facility] [address] [id number] [place] [address] 24 May, 2013 [facility] [address] [facility] [id number] [place] [address] 24 May, 2013 [facility] [address] [facility] [id number] [place] [address] May, [facility] [address] [id number] [place] [address] May, [facility] [address] [facility] [id number] [place] [address] May, [facility] [address] [facility] [id number] [place] [address] Apr, [facility] [address] [id number] [place] [address] Apr, [facility] [address] [id number] [place] [address] Mar, [facility] [address] [id number] [place] [address] Mar, [facility] [address] [facility] [id number] [place] [address] Mar, [facility] [address] [id number] [place] [address] Mar, [facility] [address] [id number] [place] [address] Feb, [facility] [address] [id number] [place] [address] Feb, [facility] [address] [facility] [id number] [place] [address] 16 Feb, 2013 [facility] [address] [id number] [place] [address] Feb, [facility] [address] [facility] [id number] [place] [address] Feb, [facility] [address] [id number] [place] [address] Jan, [facility] [address] [id number] [place] [address] Jan, [facility] [address] [id number] [place] [address] Jan, [facility] [address] [id number] [place] [address] Jan, [facility] [address] [id number] [place] [address] Jan, [facility] [address] [id number] [place] [address] December, [facility] [address] [id number] [place] [address] December, [facility] [address] [id number] [place] [address] Nov, [facility] [address] [id number] [place] [address] Nov, [facility] [address] [id number] [place] [address] Oct, [facility] [address] [id number] [place] [address] Oct, [facility] [address] [id number] [place] [address] Oct, [facility] [address] [id number] [place] [address] Sep, [facility] [address] [id number] [place] [address] Aug, [facility] [address] [id number] [place] [address] Aug, [facility] [address] [id number] [place] [address] Aug, [facility] [address] [id number] [place] [address] Aug, [facility] [address] [id number] [place] [address] Jul, [facility] [address] [id number] [place] [address] Jul, [facility] [address] [id number] [place] [address] Jul, [facility] [address] [id number] [place] [address] Jul, [facility] [address] [id number] [place] [address] Jul, [facility] [address] [id number] [place] [address] Jul, [facility] [address] [id number] [place] [address] Jul, [facility] [address] [id number] [place] [address] Jul, [facility] [address] [id number] [place] [address] Jun, [facility] [address] [id number] [place] [address] Jun, [facility] [id number] [place] [address] Jun, [facility] [address] [id number] [place] [address] Jun, [facility] [id number] [place] [address] Jun, [facility] [address] [id number] [place] [address] Jun, [facility] [address] [id number] [place] [address] May, [facility] [address] [id number] [place] [address] May, [facility] [address] [id number] [place] [address] May, [facility] [address] [id number] [place] [address] 17 May, 2012 [facility] [address] [id number] [place] [address] 26 Apr, 2012 [facility] [address] [id number] [place] [address] 06 Apr, 2012 [facility] [address] [id number] [place] [address] 08 Mar, 2012 [facility] [address] [id number] [place] [address] 28 Jan, 2012 [facility] [address] [id number] [place] [address] 20 Jan, 2012 [facility] [address] [id number] [place] [address] 16 Jan, 2012 [facility] [address] [id number] [place] [address] 15 Jan, 2012 [facility] [address] [id number] [place] [address] 14 Jan, 2012 [facility] [address] [id number] [place] [address] 14 Jan, 2012 [facility] [address] [id number] [place] [address] 07 Jan, 2012 [facility] [address] [id number] [place] [address] December, [facility] [address] [id number] [place] [address] December, [facility] [address] [id number] [place] [address] December, [facility] [address] [id number] [place] [address] December, [facility] [address] [id number] [place] [address] Nov, [facility] [address] [id number] [place] [address] 05 Nov, 2011 [facility] [address] [id number] [place] [address] Oct, [facility] [address] [id number] [place] [address] 28 Oct, 2011 [facility] [address] [id number] [place] [address] 15 Oct, 2011 [facility] [address] [id number] [place] [address] Sep, [facility] [address] [id number] [place] [address] Sep, [facility] [address] [id number] [place] [address] Sep, [facility] [address] [id number] [place] [address] Aug, [facility] [address] [id number] [place] [address] Aug, [facility] [address] [id number] [place] [address] Aug, [facility] [address] [id number] [place] [address] Aug, [facility] [address] [id number] [place] [address] Aug, [facility] [address] [id number] [place] [address] Aug, [facility] [address] [id number] [place] [address] Aug, [facility] [address] [id number] [place] [address] Jul, [facility] [address] [id number] [place] [address] Jul, [facility] [address] [id number] [place] [address] Jun, [facility] [address] [id number] [place] [address] 28 Jun, 2011 [facility] [address] [id number] [place] [address] 17 Jun, 2011 [facility] [address] [id number] [place] [address] 15 Jun, 2011 [facility] [address] [id number] [place] [address] Jun, [facility] [address] [id number] [place] [address] Jun, [facility] [address] [id number] [place] [address] Jun, [facility] [address] [id number] [place] [address] Jun, [facility] [address] [id number] [place] [address] Jun, [facility] [address] [id number] [place] [address] Jun, [facility] [address] [id number] [place] [address] May, [facility] [address] [id number] [place] [address] May, [facility] [address] [id number] [place] [address] May, [facility] [address] [id number] [place] [address] 24 May, 2011 [facility] [address] [id number] [place] [address] May, [facility] [id number] [place] [address] May, [facility] [address] [id number] [place] [address] Feb, [facility] [address] [id number] [place] [address] December, [facility] [id number] [place] [address] Jul, [facility] [id number] [place] [address] Jul, [facility] [id number] [place] [address] Jul, [facility] [id number] [place] [address] Jul, [facility] [id number] [place] [address] Jun, [facility] [id number] [place] [address] Jul, [facility] [id number] [place] [address] Jul, [facility] [id number] [place] [address] Jul, [facility] [id number] [place] [address] Jul, [facility] [id number] [place] [address] Jul, [facility] [id number] [place] [address] Jul, [facility] [id number] [place] [address] Jan, [facility] [id number] [place] [address] 16 Sep, 2008 [facility] [id number] [place] [address] Sep, IMMUNIZATIONS No Known Immunizations SOCIAL HISTORY Never Assessed REASON FOR VISIT PLAN OF CARE VITAL SIGNS MEDICATIONS Unknown Medications RESULTS No Results PROCEDURES Procedure Date Ordered Result Body Site PSYTX PT&/FAMILY 45 MINUTES Oct 21, 2013 INSTRUCTIONS MEDICATIONS ADMINISTERED No Known Medications [...]
--- OUTSIDE RECORDS SUMMARY | 2020-01-27 10:08 | XMS REPORT ---
Author Author Silvia Reilly Organization [facility] Address [address] [place] [address] Care Team Providers Care Drier Tender Naphthalene Name Role Phone EDUARDO Reilly Unavailable PROBLEMS Type Condition ICD9-CM Code CWJ16-UT Code Onset Dates Condition S tatus SNOMED Code Problem Hypertension I10 Active 1148712 3 Problem Generalized anxiety disorder F41.1 A ctive 696109232 Problem History of colon polyps Z86.010 Active 455196092 Problem History of diverticulitis Z87.19 Acti ve [id number] Problem Family history of diabetes mellitus Z83.3 Active 133440319 Problem Excessive and frequent menstruation with irregular cycle N92.1 Active 001925497 Problem Hot flashes N95.1 Active 60523569 8 Problem Gastroesophageal reflux disease with esophagitis K 21.0 Active 784283145 Problem History of ovarian cyst Z87.42 Active 98168457 Problem Diverticulitis K57.92 Active 54921 6006 Problem Dense breast tissue R92.2 Active 997099470 Problem Perimenopausal N95.1 Active 76123 3119764278 Problem Mitral valve prolapse I34.1 Active 019511827 Problem Abnormal uterine bleeding (AUB) N93.9 Active 63940237854098 Problem Tachycardia R00.0 Active 5719287 ALLERGIES No Information ENCOUNTERS Encounter Location Date Diagnosis [facility] [address] [place] [address] Nov, [facility] [address] [place] [address] Oct, [facility] [address] [facility] [id number] [address] [place] [address] Oct, Acute non-recurrent frontal sinusitis J01.10 [facility] [address] [place] [address] Sep, Generalized anxiety disorder F41.1 and B ereavement Z63.4 [facility] [address] [place] [address] 17 Sep, 2019 [facility] [address] [address] Sep, Generalized anxiety disorder F41.1 and B ereavement Z63.4 [facility] [address] [address] Aug, Generalized anxiety disorder F41.1 and B ereavement Z63.4 [facility] [id number] [place] [address] Aug, Generalized anxiety disorder F41.1 [facility] [id number] [place] [address] Aug, Viral upper respiratory tract infection J06.9 [facility] [id number] [place] [address] Jul, Generalized anxiety disorder F41.1 and B ereavement Z63.4 [facility] [id number] [place] [address] Jul, Acute non-recurrent frontal sinusitis J0 1.10 [facility] [address] [facility] [id number] [address] [place] [address] Jul, [facility] [address] [facility] [id number] [address] [place] [address] Jul, Sore throat J02.9 and Uvulit is K12.2 [facility] [address] [place] [address] Jul, Generalized anxiety disorder F41.1 [facility] [address] [place] [id number] [address] Jul, Caries K02.9 [facility] [id number] [place] [address] Jun, Generalized anxiety disorder F41.1 [facility] [id number] [place] [address] Jun, Generalized anxiety disorder F41.1 and B ereavement Z63.4 [facility] [id number] [place] [address] May, Generalized anxiety disorder F41.1 [facility] [address] [facility] [id number] [address] [place] [address] May, Dysuria R30.0 [facility] [id number] [place] [address] May, Generalized anxiety disorder F41.1 and B ereavement Z63.4 [facility] [id number] [place] [address] May, [facility] [address] [address] Apr, Generalized anxiety disorder F41.1 and B ereavement Z63.4 [facility] [id number] [place] [address] Apr, Generalized anxiety disorder F41.1 [facility] [address] [facility] [place] [address] Mar, Caries K02.9 ; Dental examin ation Z01.20 ; Periodontitis K05.30 and Oral health maintenance status requiring routine preventive dental care K08.9 [facility] [facility] [id number] [place] [address] Mar, Generalized anxiety disorder F41.1 [facility] [address] [address] Mar, Gastrointestinal hemorrhage associated w ith gastroduodenitis K29.91 [facility] [address] [address] Mar, Generalized anxiety disorder F41.1 and B ereavement Z63.4 [facility] [address] [address] Mar, [facility] [address] [address] Mar, [facility] [address] [address] Mar, [facility] [address] [address] Mar, Tachycardia R00.0 and Essential hyperten boone I10 [facility] [address] [address] Feb, Generalized anxiety disorder F41.1 [facility] [address] [address] Feb, Generalized anxiety disorder F41.1 and B ereavement Z63.4 [place] [address] [address] Feb, Generalized anxiety disorder F41.1 [facility] [address] [address] Feb, Generalized anxiety disorder F41.1 and B ereavement Z63.4 [facility] [address] [address] Jan, [facility] [address] [address] Jan, Breast cancer screening by mammogram Z12 .31 [facility] [address] [address] Jan, Generalized anxiety disorder F41.1 and B ereavement Z63.4 [facility] [address] [address] Jan, [facility] [address] [address] December, Generalized anxiety disorder F41.1 and B ereavement Z63.4 [facility] [address] [address] December, Diverticulitis K57.92 ; Dysuria R30.0 ; Other constipation K59.09 and Lower abdominal pain R10.30 [facility] [address] [place] [address] Nov, Diverticulitis K57.92 [facility] [address] [address] Nov, Generalized anxiety disorder F41.1 and B ereavement Z63.4 [facility] [address] [address] Nov, Generalized anxiety disorder F41.1 and B ereavement Z63.4 [facility] [address] [address] Nov, Diverticulitis K57.92 [facility] [address] [place] [address] Oct, Diverticulitis K57.92 [facility] [address] [address] Oct, Diverticulitis K57.92 [place] [address] [address] Oct, Generalized anxiety disorder F41.1 [facility] [address] [id number] [place] [address] Oct, Right lower quadrant abdomin al pain R10.31 and Diverticulitis K57.92 [facility] [address] [address] Sep, Generalized anxiety disorder F41.1 and B ereavement Z63.4 [facility] [address] [address] Aug, [place] [address] [address] Aug, Generalized anxiety disorder F41.1 and B ereavement Z63.4 [facility] [address] [address] Aug, Caries K02.9 [place] [address] [address] Jul, Generalized anxiety disorder F41.1 and B ereavement Z63.4 [place] [address] [address] Jul, Other acute gastritis without hemorrhage K29.00 ; Generalized anxiety disorder F41.1 ; Tachycardia R00.0 and Essential hypertension I10 [place] [address] [address] Jul, Generalized anxiety disorder F41.1 and B ereavement Z63.4 [place] [address] [address] Jun, Generalized anxiety disorder F41.1 and B ereavement Z63.4 [place] [address] [address] Jun, Generalized anxiety disorder F41.1 and B ereavement Z63.4 [facility] [address] [place] [address] 02 Jun, 2018 Dental examination Z01.20 [place] [address] [address] May, Generalized anxiety disorder F41.1 and B ereavement Z63.4 [place] [address] [address] May, Encounter for immunization Z23 [facility] [address] [address] May, Generalized anxiety disorder F41.1 and B ereavement Z63.4 [place] [address] [address] May, [place] [address] [address] Apr, Generalized anxiety disorder F41.1 and B ereavement Z63.4 [facility] [address] [place] [address] 17 Apr, 2018 [facility] [address] [place] [address] Apr, Diverticulitis K57.92 [facility] [address] [place] [address] Apr, Generalized anxiety disorder F41.1 and B ereavement Z63.4 [facility] [address] [facility] [id number] [place] [address] Mar, [facility] [address] [facility] [id number] [address] [place] [address] Mar, Diverticulitis K57.92 [facility] [address] [place] [address] Mar, Generalized anxiety disorder F41.1 and B ereavement Z63.4 [facility] [address] [place] [address] Mar, Hypertension I10 [facility] [address] [place] [address] Mar, Generalized anxiety disorder F41.1 and B ereavement Z63.4 [facility] [address] [place] [address] Feb, Generalized anxiety disorder F41.1 and B ereavement Z63.4 [facility] [address] [place] [address] Feb, [facility] [address] [place] [address] Feb, Generalized anxiety disorder F41.1 and B ereavement Z63.4 [facility] [address] [place] [address] Feb, Generalized anxiety disorder F41.1 and B ereavement Z63.4 [facility] [address] [address] Jan, Hypertension I10 and Acute non-recurrent maxillary sinusitis J01.00 [facility] [address] [address] December, [facility] [address] [address] December, Hypertension I10 [facility] [address] [address] December, Generalized anxiety disorder F41.1 [facility] [address] [place] [address] Oct, Encounter for dental examina tion Z01.20 [facility] [address] [place] [address] Oct, Encounter for dental examina tion Z01.20 [facility] [address] [place] [address] Oct, Dental examination Z01.20 [facility] [address] [address] Oct, Generalized anxiety disorder F41.1 [facility] [address] [place] [address] Aug, Dental examination Z01.20 [facility] [address] [address] Aug, Generalized anxiety disorder F41.1 [facility] [address] [address] Aug, [facility] [address] [place] [address] Aug, Encounter for dental examina tion Z01.20 [facility] [address] [address] Aug, Subacute maxillary sinusitis J01.00 [facility] [address] [place] [address] 22 Jul, 2017 Dental examination Z01.20 [facility] [address] [address] Jul, Generalized anxiety disorder F41.1 [facility] [address] [address] Jul, Diverticulitis K57.92 [facility] [address] [address] 28 Jun, 2017 Encounter for immunization Z23 [facility] [address] [place] [address] Jun, Dental examination Z01.20 [facility] [address] [address] 14 Jun, 2017 Generalized anxiety disorder F41.1 [facility] [address] [place] [address] 07 Jun, 2017 Dental examination Z01.20 [facility] [address] [address] May, [facility] [address] [id number] May, Dental examination Z01.20 [facility] [address] [id number] May, Dental examination Z01.20 [facility] [address] [place] [address] May, Dental examination Z01.20 [facility] [address] [address] May, [facility] [address] [address] May, Generalized anxiety disorder F41.1 [facility] [address] [address] 05 May, 2017 Localized edema R60.0 ; Yeast vaginitis B37.3 and Gastroesophageal reflux disease with esophagitis K21.0 [facility] [address] [id number] Apr, Dental examination Z01.20 [facility] [address] [address] Apr, Dental examination Z01.20 [facility] [address] [address] 05 Apr, 2017 Dental examination Z01.20 [facility] [address] [address] Mar, Dyspepsia R10.13 [facility] [address] [address] Mar, Generalized anxiety disorder F41.1 [facility] [address] [address] Mar, Encounter for dental examina tion Z01.20 [facility] [address] [id number] Mar, [facility] [address] [id number] Mar, Dental examination Z01.20 [facility] [address] [address] Feb, Hypertension I10 and Tachycardia R00.0 [facility] [address] [address] Feb, [facility] [address] [address] Feb, Generalized anxiety disorder F41.1 [facility] [address] [id number] Feb, Dental examination Z01.20 [facility] [address] [address] Jan, Generalized anxiety disorder F41.1 [facility] [address] [address] December, Generalized anxiety disorder F41.1 [facility] [address] [id number] December, Encounter for dental examination Z01.20 [facility] [address] [address] Nov, [facility] [address] [address] Nov, [facility] [address] [address] Nov, Generalized anxiety disorder F41.1 [facility] [address] [address] Oct, [facility] [address] [id number] Oct, Dental examination Z01.20 [facility] [address] [address] Oct, Vaginal dryness N89.8 [facility] [address] [address] Oct, Pseudoseizures F44.5 [facility] [address] [address] Oct, Generalized anxiety disorder F41.1 [facility] [address] [address] Sep, Abnormal uterine bleeding (AUB) N93.9 ; Vaginal dryness N89.8 and Screening breast examination Z12.39 [facility] [address] [address] Sep, Dental examination Z01.20 [facility] [address] [address] Sep, Generalized anxiety disorder F41.1 [facility] [address] [address] 06 Sep, 2016 Unspecified ovarian cyst, right side N83 .201 ; Unspecified ovarian cyst, left side N83.202 ; Yeast infection of the vagina B37.3 ; Mitral valve prolapse I34.1 and Hypertension I10 [facility] [address] [address] 18 Aug, 2016 Generalized anxiety disorder F41.1 [facility] [address] [address] 28 Jul, 2016 [facility] [address] [address] Jul, Generalized anxiety disorder F41.1 [facility] [address] [address] Jun, Generalized anxiety disorder F41.1 [place] [address] [address] 28 May, 2016 Encounter for immunization Z23 [facility] [address] [address] May, Generalized anxiety disorder F41.1 and D epressive disorder, not elsewhere classified F32.9 [facility] [id number] [place] [address] 28 Apr, 2016 Hypertension I10 [facility] [address] [address] 22 Apr, 2016 Cervicalgia M54.2 [facility] [address] [facility] [id number] [address] [place] [address] Apr, Cervicalgia M54.2 [facility] [address] [place] [address] 09 Mar, 2016 Generalized anxiety disorder F41.1 and D epressive disorder, not elsewhere classified F32.9 [facility] [address] [facility] [place] [address] 14 Feb, 2016 Visit for dental examination Z01.20 [facility] [id number] [place] [address] 11 Feb, 2016 Pseudoseizures F44.5 ; Migraine without status migrainosus, not intractable, unspecified migraine type G43.909 and Essential hypertension I10 [facility] [address] [facility] [place] [address] 06 Feb, 2016 Dental examination Z01.20 [place] [address] [address] Feb, Generalized anxiety disorder F41.1 and D epressive disorder, not elsewhere classified F32.9 [place] [address] [address] Jan, Tachycardia R00.0 [place] [address] [address] December, Eustachian tube dysfunction, bilateral H 69.83 [place] [address] [address] December, Generalized anxiety disorder F41.1 and D epressive disorder, not elsewhere classified F32.9 [place] [address] [address] Nov, [place] [address] [address] 28 Nov, 2015 [place] [address] [address] Nov, Hypertension I10 ; Onychomycosis B35.1 ; [...] and Complex cyst of left ovary N83.29 [place] [address] [address] 14 Nov, 2015 Sinusitis J32.9 [place] [address] [address] Oct, Complex cyst of left ovary N83.29 [facility] [id number] [place] [address] Oct, Onychomycosis B35.1 [facility] [address] [facility] [place] [address] 17 Oct, 2015 Dental examination Z01.20 [facility] [address] [address] 09 Oct, 2015 Well woman exam Z01.419 [...] R92.2 and History of colon polyps Z86.010 [place] [address] [address] Oct, Generalized anxiety disorder F41.1 and D epressive disorder, not elsewhere classified F32.9 [place] [address] [address] Sep, Hypertension I10 and Onychomycosis B35.1 [place] [address] [address] Sep, Skin tags, multiple acquired L91.8 [place] [address] [address] Aug, [place] [address] [address] Aug, [place] [address] [address] Aug, [place] [address] [address] Aug, Generalized anxiety disorder F41.1 and D epressive disorder, not elsewhere classified F32.9 [facility] [address] [address] Jul, Skin lesion L98.9 [facility] [address] [address] Jun, Generalized anxiety disorder F41.1 and D epressive disorder, not elsewhere classified F32.9 [facility] [address] [address] Jun, [place] [address] [address] Jun, Generalized anxiety disorder F41.1 [place] [address] [address] May, Encounter for immunization Z23 and Right shoulder pain M25.511 [place] [address] [address] Apr, [place] [address] [address] 14 Apr, 2015 Generalized anxiety disorder 300.02 and Depressive disorder, not elsewhere classified 311 [facility] [address] [id number] Mar, Dental examination V72.2 [place] [address] [address] Mar, Generalized anxiety disorder 300.02 and Depressive disorder, not elsewhere classified 311 [facility] [address] [address] Mar, Depression, major, recurrent, 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.35 and 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 [facility] [address] [address] Feb, Generalized anxiety disorder 300.02 and Depressive disorder, not elsewhere classified 311 [facility] [address] [id number] Feb, Dental examination V72.2 [place] [id number] [place] [address] 09 Jan, 2015 Generalized anxiety disorder 300.02 and Depressive disorder, not elsewhere classified 311 [facility] [id number] [place] [address] Jan, [facility] [id number] [place] [address] December, Generalized anxiety disorder 300.02 and Depressive disorder, not elsewhere classified 311 [facility] [id number] [place] [address] December, Major depressive disorder, recurrent, un specified 296.30 and Panic disorder with agoraphobia 300.21 [facility] [id number] [place] [address] 14 Nov, 2014 [facility] [address] [address] Nov, [facility] [id number] [place] [address] Oct, [facility] [id number] [place] [address] Oct, [facility] [id number] [place] [address] Oct, [facility] [id number] [place] [address] Oct, [facility] [id number] [place] [address] Sep, [facility] [id number] [place] [address] Sep, [facility] [id number] [place] [address] Sep, [facility] [id number] [place] [address] Sep, [facility] [id number] [place] [address] Sep, [facility] [address] [place] [address] Sep, 2014 [facility] [address] [place] [address] Sep, 2014 [facility] [address] [place] [address] Sep, 2014 [facility] [address] [place] [address] Sep, 2014 [facility] [address] [place] [address] Sep, 2014 [facility] [address] [place] [address] Aug, [facility] [id number] [place] [address] Aug, [facility] [id number] [place] [address] Jul, [facility] [id number] [place] [address] Jul, [facility] [id number] [place] [address] Jul, [facility] [id number] [place] [address] Jul, [facility] [id number] [place] [address] Jul, [facility] [id number] [place] [address] Jul, [facility] [id number] [place] [address] 05 Jul, 2014 [facility] [id number] [place] [address] 05 Jul, 2014 [facility] [id number] [place] [address] 04 Jul, 2014 [facility] [id number] [place] [address] Jul, [facility] [address] [facility] [id number] [place] [address] Jul, [facility] [id number] [place] [address] Jul, [facility] [id number] [place] [address] Jun, [facility] [id number] [place] [address] Jun, [facility] [id number] [place] [address] May, [facility] [id number] [place] [address] May, [facility] [id number] [place] [address] May, [facility] [id number] [place] [address] May, [facility] [id number] [place] [address] May, [facility] [id number] [place] [address] May, [facility] [id number] [place] [address] May, [facility] [id number] [place] [address] May, [facility] [id number] [place] [address] May, [facility] [id number] [place] [address] May, [facility] [id number] [place] [address] May, [facility] [id number] [place] [address] May, [facility] [address] [id number] [place] [address] 30 Apr, 2013 [facility] [address] [facility] [id number] [place] [address] 30 Apr, 2014 [facility] [id number] [place] [address] Apr, 2013 [facility] [id number] [place] [address] Apr, [facility] [address] [facility] [id number] [place] [address] Apr, [facility] [address] [facility] [id number] [place] [address] Apr, [facility] [id number] [place] [address] Feb, [facility] [id number] [place] [address] Feb, [facility] [id number] [place] [address] Feb, [facility] [id number] [place] [address] Feb, [facility] [id number] [place] [address] Feb, [facility] [id number] [place] [address] Feb, [facility] [id number] [place] [address] Jan, [facility] [id number] [place] [address] Jan, [facility] [id number] [place] [address] Jan, [facility] [id number] [place] [address] Jan, [facility] [id number] [place] [address] Jan, [facility] [address] [id number] [place] [address] Jan, [facility] [address] [facility] [id number] [facility] [place] [address] Jan, [facility] [id number] [place] [address] Jan, [facility] [address] [id number] [facility] [place] [address] December, [facility] [address] [facility] [id number] [place] [address] December, [facility] [id number] [place] [address] December, [facility] [id number] [place] [address] December, [facility] [id number] [place] [address] Nov, [facility] [id number] [place] [address] Nov, [facility] [id number] [place] [address] Nov, [facility] [id number] [place] [address] Nov, [facility] [id number] [place] [address] Nov, [facility] [id number] [place] [address] Nov, [facility] [id number] [place] [address] Nov, [facility] [id number] [place] [address] Nov, [facility] [id number] [place] [address] Oct, [facility] [id number] [place] [address] Oct, [facility] [address] [facility] [id number] [place] [address] Sep, [facility] [id number] [place] [address] Sep, [facility] [address] [facility] [id number] [place] [id number] Sep, [facility] [id number] [place] [address] Sep, [facility] [id number] [place] [address] Sep, [facility] [id number] [place] [address] Sep, [facility] [id number] [place] [address] Aug, [facility] [id number] [place] [address] Aug, [facility] [id number] [place] [address] Aug, [facility] [id number] [place] [address] Aug, [facility] [id number] [place] [address] Jul, [facility] [id number] [place] [address] Jul, [facility] [id number] [place] [address] Jul, [facility] [id number] [place] [address] Jul, [facility] [id number] [place] [address] Jun, [facility] [id number] [place] [address] Jun, [facility] [address] [facility] [id number] [place] [address] May, [facility] [address] [facility] [id number] [place] [address] May, [facility] [id number] [place] [address] May, [facility] [id number] [place] [address] May, [facility] [address] [facility] [id number] [place] [address] May, [facility] [id number] [place] [address] Apr, [facility] [id number] [place] [address] Apr, [facility] [id number] [place] [address] Mar, [facility] [id number] [place] [address] Mar, [facility] [id number] [place] [address] Mar, [facility] [id number] [place] [address] Mar, [facility] [id number] [place] [address] Feb, [facility] [id number] [place] [address] Feb, [facility] [address] [facility] [id number] [place] [address] 16 Feb, 2013 [facility] [id number] [place] [address] Feb, [facility] [id number] [place] [address] Feb, [facility] [id number] [place] [address] Jan, [facility] [id number] [place] [address] Jan, [facility] [id number] [place] [address] Jan, [facility] [id number] [place] [address] Jan, [facility] [id number] [place] [address] Jan, [facility] [address] [facility] [id number] [place] [address] December, [facility] [id number] [place] [address] December, [facility] [id number] [place] [address] Nov, [facility] [id number] [place] [address] Nov, [facility] [id number] [place] [address] Oct, [facility] [id number] [place] [address] Oct, [facility] [id number] [place] [address] Oct, [facility] [id number] [place] [address] Sep, [facility] [id number] [place] [address] Aug, [facility] [id number] [place] [address] Aug, [facility] [id number] [place] [address] Aug, [facility] [id number] [place] [address] Aug, [facility] [id number] [place] [address] Jul, [facility] [id number] [place] [address] Jul, [facility] [id number] [place] [address] Jul, [facility] [id number] [place] [address] Jul, [facility] [id number] [place] [address] Jul, [facility] [id number] [place] [address] Jul, [facility] [id number] [place] [address] Jul, [facility] [id number] [place] [address] Jul, [facility] [id number] [place] [address] Jun, [facility] [id number] [place] [address] Jun, [facility] [id number] [place] [address] Jun, [facility] [id number] [place] [address] Jun, [facility] [id number] [place] [address] Jun, [facility] [id number] [place] [address] Jun, [facility] [id number] [place] [address] May, [facility] [id number] [place] [address] May, [facility] [id number] [place] [address] May, [facility] [id number] [place] [address] 17 May, 2012 [facility] [id number] [place] [address] 26 Apr, 2012 [facility] [id number] [place] [address] 06 Apr, 2012 [facility] [id number] [place] [address] 08 Mar, 2012 [facility] [id number] [place] [address] 28 Jan, 2012 [facility] [id number] [place] [address] 20 Jan, 2012 [facility] [id number] [place] [address] 16 Jan, 2012 [facility] [id number] [place] [address] 15 Jan, 2012 [facility] [id number] [place] [address] Jan, [facility] [id number] [place] [address] 14 Jan, 2012 [facility] [id number] [place] [address] Jan, [facility] [id number] [place] [address] December, [facility] [id number] [place] [address] December, [facility] [id number] [place] [address] December, [facility] [id number] [place] [address] December, [facility] [id number] [place] [address] Nov, [facility] [id number] [place] [address] 05 Nov, 2011 [facility] [id number] [facility] [place] [address] Oct, [facility] [id number] [facility] [place] [address] 28 Oct, 2011 [facility] [id number] [place] [address] Oct, [facility] [id number] [place] [address] Sep, [facility] [id number] [facility] [place] [address] Sep, [facility] [id number] [place] [address] Sep, [facility] [id number] [place] [address] Aug, [facility] [id number] [place] [address] Aug, [facility] [id number] [place] [address] Aug, [facility] [id number] [place] [address] Aug, [facility] [id number] [place] [address] Aug, [facility] [id number] [place] [address] Aug, [facility] [id number] [place] [address] Aug, [facility] [id number] [place] [address] Jul, [facility] [id number] [place] [address] Jul, [facility] [id number] [place] [address] Jun, [facility] [id number] [place] [address] 28 Jun, 2011 [facility] [id number] [place] [address] 17 Jun, 2011 [facility] [id number] [place] [address] 15 Jun, 2011 [facility] [id number] [place] [address] 14 Jun, 2011 [facility] [id number] [place] [address] 14 Jun, 2011 [facility] [id number] [place] [address] Jun, [facility] [id number] [place] [address] Jun, [facility] [id number] [place] [address] Jun, [facility] [id number] [place] [address] Jun, [facility] [id number] [place] [address] May, [facility] [id number] [place] [address] May, [facility] [id number] [place] [address] May, [facility] [id number] [place] [address] 24 May, 2011 [facility] [id number] [place] [address] 18 May, 2011 [facility] [id number] [place] [address] May, [facility] [id number] [place] [address] Feb, [facility] [id number] [place] [address] December, [facility] [id number] [place] [address] Jul, [facility] [id number] [place] [address] Jul, [facility] [id number] [place] [address] Jul, [facility] [id number] [place] [address] Jul, [facility] [id number] [place] [address] Jun, [facility] [address] [address] Jul, [facility] [id number] [place] [address] Jul, [facility] [address] [address] Jul, [facility] [id number] [place] [address] Jul, [facility] [address] [address] Jul, [facility] [id number] [place] [address] Jul, [facility] [id number] [place] [address] Jan, [facility] [id number] [place] [address] 16 Sep, 2008 [facility] [id number] [place] [address] Sep, IMMUNIZATIONS No Known Immunizations SOCIAL HISTORY [...]
--- OUTSIDE RECORDS SUMMARY | 2020-01-27 10:09 | XMS REPORT ---
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 Name Role Phone ROBERT Anthony Unavailable PROBLEMS Type Condition ICD9-CM Code QYB13-AD Code Onset Dates Condition S tatus SNOMED Code Problem Hypertension I10 Active 8274431 3 Problem Generalized anxiety disorder F41.1 A ctive 188968926 Problem History of colon polyps Z86.010 Active 807821434 Problem History of diverticulitis Z87.19 Acti ve 261814032103210 Problem Family history of diabetes mellitus Z83.3 Active 384436824 Problem Excessive and frequent menstruation with irregular cycle N92.1 Active 590494468 Problem Hot flashes N95.1 Active 63391564 8 Problem Gastroesophageal reflux disease with esophagitis K 21.0 Active 134541957 Problem History of ovarian cyst Z87.42 Active 96975979 Problem Diverticulitis K57.92 Active 90458 6006 Problem Dense breast tissue R92.2 Active 269538780 Problem Perimenopausal N95.1 Active 43363 8420737882 Problem Mitral valve prolapse I34.1 Active 077410476 Problem Abnormal uterine bleeding (AUB) N93.9 Active 42432712472076 Problem Tachycardia R00.0 Active 7658869 ALLERGIES No Information ENCOUNTERS Encounter Location Date Diagnosis [facility] [address] [address] Sep, [facility] [address] [address] Sep, [place] [address] [address] Aug, Generalized anxiety disorder F41.1 and B ereavement Z63.4 [facility] [address] [address] Aug, Generalized anxiety disorder F41.1 [facility] [address] [facility] [place] [address] Aug, Viral upper respiratory tract infection J06.9 [facility] [address] [facility] [place] [address] Jul, Generalized anxiety disorder F41.1 and B ereavement Z63.4 [facility] [address] [place] [id number] [place] [address] Jul, Acute non-recurrent frontal sinusitis J0 1.10 [facility] [address] [place] [id number] [address] [place] [address] Jul, [facility] [address] [place] [id number] [address] [place] [address] Jul, Sore throat J02.9 and Uvulit is K12.2 [place] [address] [place] [address] [id number] [place] [address] Jul, Generalized anxiety disorder F41.1 [facility] [address] [place] [address] Jul, Caries K02.9 [facility] [address] [place] [id number] [place] [address] Jun, Generalized anxiety disorder F41.1 [place] [address] [place] [id number] [place] [address] Jun, Generalized anxiety disorder F41.1 and B ereavement Z63.4 [place] [address] [address] [id number] [place] [address] May, Generalized anxiety disorder F41.1 [facility] [address] [facility] [id number] [address] [place] [address] May, Dysuria R30.0 [facility] [address] [place] [address] [id number] [place] [address] May, Generalized anxiety disorder F41.1 and B ereavement Z63.4 [facility] [address] [address] May, [facility] [address] [address] Apr, Generalized anxiety disorder F41.1 and B ereavement Z63.4 [facility] [address] [address] Apr, Generalized anxiety disorder F41.1 [facility] [address] [facility] [id number] [place] [address] Mar, Caries K02.9 ; Dental examin ation Z01.20 ; Periodontitis K05.30 and Oral health maintenance status requiring routine preventive dental care K08.9 [place] [address] [address] Mar, Generalized anxiety disorder F41.1 [place] [address] [address] Mar, Gastrointestinal hemorrhage associated w ith gastroduodenitis K29.91 [place] [address] [address] Mar, Generalized anxiety disorder F41.1 and B ereavement Z63.4 [place] [address] [address] Mar, [facility] [address] [address] Mar, [facility] [address] [address] Mar, [facility] [address] [address] Mar, Tachycardia R00.0 and Essential hyperten boone I10 [facility] [address] [address] Feb, Generalized anxiety disorder F41.1 [place] [address] [address] Feb, Generalized anxiety disorder F41.1 and B ereavement Z63.4 [place] [address] [address] Feb, Generalized anxiety disorder F41.1 [facility] [address] [address] Feb, Generalized anxiety disorder F41.1 and B ereavement Z63.4 [place] [address] [address] Jan, [place] [address] [address] Jan, Breast cancer screening by mammogram Z12 .31 [place] [address] [address] Jan, Generalized anxiety disorder F41.1 and B ereavement Z63.4 [place] [address] [address] Jan, [place] [address] [address] December, Generalized anxiety disorder F41.1 and B ereavement Z63.4 [place] [address] [address] December, Diverticulitis K57.92 ; Dysuria R30.0 ; Other constipation K59.09 and Lower abdominal pain R10.30 [facility] [address] [facility] [id number] [address] [place] [address] Nov, Diverticulitis K57.92 [facility] [address] [address] Nov, Generalized anxiety disorder F41.1 and B ereavement Z63.4 [place] [address] [address] Nov, Generalized anxiety disorder F41.1 and B ereavement Z63.4 [place] [address] [address] Nov, Diverticulitis K57.92 [facility] [address] [place] [id number] [place] [address] Oct, Diverticulitis K57.92 [facility] [address] [address] Oct, Diverticulitis K57.92 [facility] [address] [address] Oct, Generalized anxiety disorder F41.1 [facility] [address] [facility] [id number] [place] [address] Oct, Right lower quadrant abdomin al pain R10.31 and Diverticulitis K57.92 [place] [address] [address] Sep, Generalized anxiety disorder F41.1 and B ereavement Z63.4 [place] [address] [address] Aug, [place] [address] [address] Aug, Generalized anxiety disorder F41.1 and B ereavement Z63.4 [facility] [address] [place] [id number] [address] Aug, Caries K02.9 [place] [address] [address] Jul, Generalized anxiety disorder F41.1 and B ereavement Z63.4 [place] [address] [address] Jul, Other acute gastritis without hemorrhage K29.00 ; Generalized anxiety disorder F41.1 ; Tachycardia R00.0 and Essential hypertension I10 [place] [address] [address] Jul, Generalized anxiety disorder F41.1 and B ereavement Z63.4 [facility] [address] [place] [id number] [place] [address] Jun, Generalized anxiety disorder F41.1 and B ereavement Z63.4 [facility] [address] [place] [id number] [place] [address] Jun, Generalized anxiety disorder F41.1 and B ereavement Z63.4 [facility] [address] [place] [id number] [address] Jun, Dental examination Z01.20 [facility] [address] [address] May, Generalized anxiety disorder F41.1 and B ereavement Z63.4 [facility] [address] [address] 08 May, 2018 Encounter for immunization Z23 [place] [address] [address] 08 May, 2018 Generalized anxiety disorder F41.1 and B ereavement Z63.4 [facility] [address] [address] May, [facility] [address] [address] 24 Apr, 2018 Generalized anxiety disorder F41.1 and B ereavement Z63.4 [place] [address] [address] 17 Apr, 2018 [facility] [address] [address] 13 Apr, 2018 Diverticulitis K57.92 [facility] [address] [address] 10 Apr, 2018 Generalized anxiety disorder F41.1 and B ereavement Z63.4 [facility] [address] [facility] [id number] [address] [place] [address] Mar, [facility] [address] [place] [id number] [address] [place] [address] Mar, Diverticulitis K57.92 [facility] [address] [address] Mar, Generalized anxiety disorder F41.1 and B ereavement Z63.4 [facility] [address] [address] Mar, Hypertension I10 [place] [address] [address] Mar, Generalized anxiety disorder F41.1 and B ereavement Z63.4 [place] [address] [address] Feb, Generalized anxiety disorder F41.1 and B ereavement Z63.4 [place] [address] [address] Feb, [place] [address] [address] Feb, Generalized anxiety disorder F41.1 and B ereavement Z63.4 [place] [address] [address] Feb, Generalized anxiety disorder F41.1 and B ereavement Z63.4 [place] [address] [address] Jan, Hypertension I10 and Acute non-recurrent maxillary sinusitis J01.00 [facility] [address] [address] December, [place] [address] [address] December, Hypertension I10 [place] [address] [address] December, Generalized anxiety disorder F41.1 [facility] [address] [facility] [id number] [place] [address] Oct, Encounter for dental examina tion Z01.20 [facility] [address] [place] [id number] [place] [address] 06 Oct, 2017 Encounter for dental examina tion Z01.20 [facility] [address] [place] [id number] [place] [address] 02 Oct, 2017 Dental examination Z01.20 [facility] [address] [address] Oct, Generalized anxiety disorder F41.1 [facility] [address] [place] [id number] [place] [address] Aug, Dental examination Z01.20 [facility] [address] [address] Aug, Generalized anxiety disorder F41.1 [place] [address] [address] Aug, [facility] [address] [address] 09 Aug, 2017 Encounter for dental examina tion Z01.20 [facility] [address] [address] Aug, Subacute maxillary sinusitis J01.00 [facility] [address] [address] Jul, Dental examination Z01.20 [facility] [address] [address] Jul, Generalized anxiety disorder F41.1 [facility] [address] [address] Jul, Diverticulitis K57.92 [facility] [address] [address] Jun, Encounter for immunization Z23 [facility] [address] [place] [id number] [place] [address] Jun, Dental examination Z01.20 [facility] [address] [address] Jun, Generalized anxiety disorder F41.1 [facility] [address] [place] [address] Jun, Dental examination Z01.20 [facility] [address] [address] May, [facility] [address] [id number] May, Dental examination Z01.20 [facility] [address] [id number] May, Dental examination Z01.20 [facility] [address] [place] [id number] [place] [address] May, Dental examination Z01.20 [facility] [address] [address] May, [facility] [address] [address] May, Generalized anxiety disorder F41.1 [facility] [address] [address] May, Localized edema R60.0 ; Yeast vaginitis B37.3 and Gastroesophageal reflux disease with esophagitis K21.0 [facility] [address] [id number] Apr, Dental examination Z01.20 [facility] [address] [facility] [place] [address] Apr, Dental examination Z01.20 [facility] [address] [place] [id number] [place] [address] Apr, Dental examination Z01.20 [facility] [address] [address] Mar, Dyspepsia R10.13 [facility] [address] [address] Mar, Generalized anxiety disorder F41.1 [facility] [address] [address] Mar, Encounter for dental examina tion Z01.20 [facility] [address] [id number] Mar, [facility] [address] [id number] Mar, Dental examination Z01.20 [facility] [address] [address] Feb, Hypertension I10 and Tachycardia R00.0 [facility] [address] [place] [id number] [place] [address] Feb, [facility] [address] [address] Feb, Generalized anxiety disorder F41.1 [facility] [address] [id number] Feb, Dental examination Z01.20 [facility] [address] [address] Jan, Generalized anxiety disorder F41.1 [facility] [address] [address] December, Generalized anxiety disorder F41.1 [facility] [address] [id number] December, Encounter for dental examination Z01.20 [facility] [address] [address] Nov, [facility] [address] [address] Nov, [facility] [address] [address] Nov, Generalized anxiety disorder F41.1 [facility] [address] [address] Oct, [facility] [address] [id number] [place] [id number] Oct, Dental examination Z01.20 [place] [address] [address] Oct, Vaginal dryness N89.8 [place] [address] [address] Oct, Pseudoseizures F44.5 [place] [address] [address] Oct, Generalized anxiety disorder F41.1 [place] [address] [address] 28 Sep, 2016 Abnormal uterine bleeding (AUB) N93.9 ; Vaginal dryness N89.8 and Screening breast examination Z12.39 [place] [address] [address] Sep, Dental examination Z01.20 [place] [address] [address] Sep, Generalized anxiety disorder F41.1 [place] [address] [address] 06 Sep, 2016 Unspecified ovarian cyst, right side N83 .201 ; Unspecified ovarian cyst, left side N83.202 ; Yeast infection of the vagina B37.3 ; Mitral valve prolapse I34.1 and Hypertension I10 [place] [address] [address] Aug, Generalized anxiety disorder F41.1 [place] [address] [address] Jul, [place] [address] [address] Jul, Generalized anxiety disorder F41.1 [place] [address] [address] Jun, Generalized anxiety disorder F41.1 [facility] [address] [address] May, Encounter for immunization Z23 [facility] [address] [address] 17 May, 2016 Generalized anxiety disorder F41.1 and D epressive disorder, not elsewhere classified F32.9 [facility] [address] [address] Apr, Hypertension I10 [facility] [address] [address] Apr, Cervicalgia M54.2 [facility] [address] [facility] [id number] [address] [place] [address] Apr, Cervicalgia M54.2 [facility] [address] [address] Mar, Generalized anxiety disorder F41.1 and D epressive disorder, not elsewhere classified F32.9 [facility] [address] [id number] Feb, Visit for dental examination Z01.20 [facility] [address] [address] Feb, Pseudoseizures F44.5 ; Migraine without status migrainosus, not intractable, unspecified migraine type G43.909 and Essential hypertension I10 [facility] [address] [id number] Feb, Dental examination Z01.20 [facility] [address] [address] Feb, Generalized anxiety disorder F41.1 and D epressive disorder, not elsewhere classified F32.9 [facility] [address] [address] Jan, Tachycardia R00.0 [facility] [address] [address] December, Eustachian tube dysfunction, bilateral H 69.83 [place] [address] [address] December, Generalized anxiety disorder F41.1 and D epressive disorder, not elsewhere classified F32.9 [place] [address] [address] 29 Nov, 2015 [place] [address] [address] 28 Nov, 2015 [place] [address] [address] Nov, Hypertension I10 ; Onychomycosis B35.1 ; [...] cyst of left ovary N83.29 [place] [address] [address] 14 Nov, 2015 Sinusitis J32.9 [place] [address] [address] Oct, Complex cyst of left ovary N83.29 [place] [address] [address] Oct, Onychomycosis B35.1 [facility] [address] [id number] [place] [id number] 17 Oct, 2015 Dental examination Z01.20 [place] [address] [address] 09 Oct, 2015 Well woman exam Z01.419 [...] R92.2 and History of colon polyps Z86.010 [facility] [address] [address] 03 Oct, 2016 Generalized anxiety disorder F41.1 and D epressive disorder, not elsewhere classified F32.9 [place] [address] [address] Sep, Hypertension I10 and Onychomycosis B35.1 [place] [address] [address] Sep, Skin tags, multiple acquired L91.8 [place] [address] [address] Aug, [facility] [address] [address] Aug, [place] [address] [address] Aug, [place] [address] [address] Aug, Generalized anxiety disorder F41.1 and D epressive disorder, not elsewhere classified F32.9 [facility] [address] [address] Jul, Skin lesion L98.9 [place] [address] [address] Jun, Generalized anxiety disorder F41.1 and D epressive disorder, not elsewhere classified F32.9 [facility] [address] [address] Jun, [facility] [address] [address] Jun, Generalized anxiety disorder F41.1 [facility] [address] [address] May, Encounter for immunization Z23 and Right shoulder pain M25.511 [facility] [address] [address] 28 Apr, 2015 [facility] [address] [address] 14 Apr, 2015 Generalized anxiety disorder 300.02 and Depressive disorder, not elsewhere classified 311 [facility] [address] [id number] Mar, Dental examination V72.2 [facility] [address] [address] Mar, Generalized anxiety disorder 300.02 and Depressive disorder, not elsewhere classified 311 [facility] [address] [address] Mar, Depression, major, recurrent, 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.35 and 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 [facility] [address] [address] Feb, Generalized anxiety disorder 300.02 and Depressive disorder, not elsewhere classified 311 [facility] [address] [id number] Feb, Dental examination V72.2 [facility] [address] [address] Jan, Generalized anxiety disorder 300.02 and Depressive disorder, not elsewhere classified 311 [facility] [address] [address] Jan, [facility] [address] [address] December, Generalized anxiety disorder 300.02 and Depressive disorder, not elsewhere classified 311 [facility] [address] [address] December, Major depressive disorder, recurrent, un specified 296.30 and Panic disorder with agoraphobia 300.21 [facility] [address] [id number] [place] [address] 14 Nov, 2014 [facility] [address] [id number] [place] [address] Nov, [facility] [address] [id number] [place] [address] Oct, [facility] [address] [id number] [place] [address] Oct, [facility] [address] [id number] [place] [address] Oct, [facility] [address] [id number] [place] [address] Oct, [facility] [address] [id number] [place] [address] Sep, 2014 [facility] [address] [id number] [place] [address] Sep, 2014 [facility] [address] [id number] [place] [address] Sep, 2014 [facility] [address] [id number] [place] [address] Sep, 2014 [facility] [address] [id number] [place] [address] Sep, 2014 [facility] [address] [id number] [place] [address] Sep, 2014 [facility] [address] [id number] [place] [address] Sep, 2014 [facility] [address] [id number] [place] [address] Sep, 2014 [facility] [address] [id number] [place] [address] Sep, 2014 [facility] [address] [id number] [place] [address] Sep, 2014 [facility] [address] [facility] [id number] [place] [address] Aug, [facility] [address] [id number] [place] [address] Aug, [facility] [address] [id number] [place] [address] Jul, [facility] [address] [id number] [place] [address] Jul, [facility] [address] [id number] [place] [address] Jul, [facility] [address] [id number] [place] [address] Jul, [facility] [address] [id number] [place] [address] Jul, [facility] [address] [id number] [place] [address] Jul, [facility] [address] [id number] [place] [address] Jul, [facility] [address] [id number] [place] [address] Jul, [facility] [address] [id number] [place] [address] Jul, [facility] [address] [id number] [place] [address] Jul, [facility] [address] [id number] [place] [address] Jul, [facility] [address] [id number] [place] [address] Jul, [facility] [id number] [place] [address] Jun, [facility] [address] [id number] [place] [address] Jun, [facility] [address] [id number] [place] [address] May, [facility] [address] [id number] [place] [address] May, [facility] [place] [facility] [address] [id number] [place] [address] May, [facility] [place] [facility] [address] [id number] [place] [address] May, [facility] [place] [facility] [address] [id number] [place] [address] May, [facility] [place] [facility] [address] [id number] [place] [address] May, [facility] [place] [facility] [address] [id number] [place] [address] May, [facility] [place] [facility] [address] [id number] [place] [address] May, [facility] [place] [facility] [address] [id number] [place] [address] May, [facility] [place] [facility] [address] [id number] [place] [address] May, [facility] [place] [facility] [address] [id number] [place] [address] May, [facility] [place] [facility] [address] [id number] [place] [address] May, [facility] [place] [facility] [address] [id number] [place] [address] 30 Apr, 2013 [facility] [place] [facility] [address] [id number] [place] [address] 30 Sep, 2013 [facility] [place] [facility] [address] [id number] [place] [address] 29 Sep, 2013 [facility] [place] [facility] [address] [id number] [place] [address] 29 Sep, 2013 [facility] [place] [facility] [address] [id number] [place] [address] 02 Sep, 2013 [facility] [place] [facility] [address] [id number] [place] [address] Apr, [facility] [place] [facility] [address] [facility] [id number] [place] [address] Feb, [facility] [place] [facility] [address] [facility] [id number] [facility] [place] [address] Feb, [facility] [place] [facility] [address] [id number] [place] [address] Feb, [facility] [place] [facility] [address] [facility] [id number] [place] [address] Feb, [facility] [place] [facility] [address] [facility] [id number] [place] [address] Feb, [facility] [place] [facility] [address] [id number] [place] [address] Feb, [facility] [place] [facility] [address] [id number] [place] [address] Jan, [facility] [place] [facility] [address] [id number] [place] [address] Jan, [facility] [place] [facility] [address] [facility] [id number] [place] [address] Jan, [facility] [place] [facility] [address] [id number] [place] [address] Jan, [facility] [place] [facility] [address] [id number] [place] [address] Jan, [facility] [place] [facility] [address] [id number] [place] [address] Jan, [facility] [place] [facility] [address] [facility] [id number] [place] [address] Jan, [facility] [place] [facility] [address] [facility] [id number] [place] [address] Jan, [facility] [place] [facility] [address] [facility] [id number] [place] [address] December, [facility] [place] [facility] [address] [id number] [place] [address] December, [facility] [place] [facility] [address] [id number] [place] [address] December, [facility] [place] [facility] [address] [id number] [place] [address] December, [facility] [place] [facility] [address] [id number] [place] [address] Nov, [facility] [place] [facility] [address] [id number] [place] [address] Nov, [facility] [place] [facility] [address] [id number] [place] [address] Nov, [facility] [place] [facility] [address] [id number] [place] [address] Nov, [facility] [place] [facility] [address] [id number] [place] [address] Nov, [facility] [place] [facility] [address] [id number] [place] [address] Nov, [facility] [place] [facility] [address] [id number] [place] [address] Nov, [facility] [place] [facility] [address] [id number] [place] [address] Nov, [facility] [place] [facility] [address] [id number] [place] [address] Oct, [facility] [place] [facility] [address] [id number] [place] [address] Oct, [facility] [place] [facility] [address] [id number] [place] [address] Sep, [facility] [place] [facility] [address] [id number] [place] [address] Sep, [facility] [place] [facility] [address] [facility] [id number] [place] [id number] Sep, [facility] [place] [facility] [address] [id number] [place] [address] Sep, [facility] [place] [facility] [address] [id number] [place] [address] Sep, [facility] [place] [facility] [address] [id number] [place] [address] 14 Sep, 2013 [facility] [place] [facility] [address] [id number] [place] [address] Aug, [facility] [place] [facility] [address] [id number] [place] [address] Aug, [facility] [place] [facility] [address] [id number] [place] [address] Aug, [facility] [place] [facility] [address] [id number] [place] [address] Aug, [facility] [place] [facility] [address] [id number] [place] [address] Jul, [facility] [place] [facility] [address] [id number] [place] [address] Jul, [facility] [place] [facility] [address] [id number] [place] [address] Jul, [facility] [place] [facility] [address] [id number] [place] [address] Jul, [facility] [place] [facility] [address] [id number] [place] [address] Jun, [facility] [place] [facility] [address] [id number] [place] [address] Jun, [facility] [place] [facility] [address] [id number] [place] [address] 24 May, 2013 [facility] [place] [facility] [address] [id number] [place] [address] 24 May, 2013 [facility] [place] [facility] [address] [id number] [place] [address] May, [facility] [place] [facility] [address] [id number] [place] [address] May, [facility] [place] [facility] [address] [id number] [place] [address] 10 May, 2013 [facility] [place] [facility] [address] [id number] [place] [address] 17 Apr, 2013 [facility] [place] [facility] [address] [facility] [id number] [facility] [place] [address] Apr, [facility] [place] [facility] [address] [facility] [id number] [facility] [place] [address] Mar, [facility] [place] [facility] [address] [id number] [facility] [place] [address] Mar, [facility] [place] [facility] [address] [id number] [place] [address] Mar, [facility] [place] [facility] [address] [facility] [id number] [facility] [place] [address] Mar, [facility] [place] [facility] [address] [id number] [facility] [place] [address] Feb, [facility] [place] [facility] [address] [id number] [facility] [place] [address] Feb, [facility] [place] [facility] [address] [id number] [place] [address] Feb, [facility] [place] [facility] [address] [id number] [place] [address] Feb, [facility] [place] [facility] [address] [id number] [place] [address] Feb, [facility] [place] [facility] [address] [id number] [place] [address] Jan, [facility] [place] [facility] [address] [id number] [place] [address] Jan, [facility] [place] [facility] [address] [id number] [facility] [place] [address] Jan, [facility] [place] [facility] [address] [id number] [place] [address] Jan, [facility] [place] [facility] [address] [id number] [place] [address] Jan, [facility] [place] [facility] [address] [id number] [place] [address] December, [facility] [place] [facility] [address] [id number] [place] [address] December, [facility] [address] [id number] [place] [address] Nov, [facility] [place] [facility] [address] [id number] [place] [address] Nov, [facility] [place] [facility] [address] [id number] [place] [address] Oct, [facility] [place] [facility] [address] [id number] [place] [address] Oct, [facility] [place] [facility] [address] [id number] [place] [address] 05 Oct, 2012 [facility] [place] [facility] [address] [id number] [place] [address] 14 Sep, 2012 [facility] [place] [facility] [address] [id number] [place] [address] 24 Aug, 2012 [facility] [place] [facility] [address] [id number] [place] [address] Aug, [facility] [place] [facility] [address] [id number] [place] [address] Aug, [facility] [place] [facility] [address] [id number] [place] [address] Aug, [facility] [place] [facility] [address] [id number] [place] [address] Jul, [facility] [place] [facility] [address] [id number] [place] [address] Jul, [facility] [place] [facility] [address] [id number] [place] [address] Jul, [facility] [place] [facility] [id number] [place] [address] Jul, [facility] [place] [facility] [address] [id number] [place] [address] Jul, [facility] [place] [facility] [address] [id number] [place] [address] Jul, [facility] [place] [facility] [address] [id number] [place] [address] Jul, [facility] [place] [facility] [address] [id number] [place] [address] Jul, [facility] [place] [facility] [address] [id number] [place] [address] Jun, [facility] [place] [facility] [id number] [place] [address] Jun, [facility] [place] [facility] [address] [id number] [place] [address] Jun, [facility] [place] [facility] [id number] [place] [address] Jun, [facility] [place] [facility] [address] [id number] [place] [address] Jun, [facility] [place] [facility] [id number] [place] [address] Jun, [facility] [place] [facility] [address] [id number] [place] [address] May, [facility] [place] [facility] [id number] [place] [address] May, [facility] [place] [facility] [address] [id number] [place] [address] May, [facility] [place] [facility] [id number] [place] [address] May, [facility] [place] [facility] [address] [id number] [place] [address] Apr, [facility] [place] [facility] [address] [id number] [place] [address] Apr, [facility] [place] [facility] [address] [id number] [place] [address] Mar, [facility] [place] [facility] [address] [id number] [place] [address] Jan, [facility] [place] [facility] [address] [id number] [place] [address] 20 Jan, 2012 [facility] [place] [facility] [address] [facility] [id number] [place] [address] 16 Jan, 2012 [facility] [place] [facility] [address] [id number] [place] [address] 15 Jan, 2012 [facility] [place] [facility] [address] [id number] [place] [address] 14 Jan, 2012 [facility] [place] [facility] [address] [id number] [place] [address] 14 Jan, 2012 [facility] [place] [facility] [address] [id number] [place] [address] 07 Jan, 2012 [facility] [place] [facility] [address] [id number] [place] [address] December, [facility] [place] [facility] [address] [id number] [place] [address] December, [facility] [place] [facility] [address] [id number] [place] [address] December, [facility] [place] [facility] [address] [id number] [place] [address] December, [facility] [place] [facility] [address] [id number] [place] [address] Nov, [facility] [place] [facility] [address] [id number] [place] [address] 05 Nov, 2011 [facility] [place] [facility] [address] [id number] [place] [address] Oct, [facility] [place] [facility] [address] [id number] [place] [address] 28 Oct, 2011 [facility] [place] [facility] [address] [id number] [place] [address] Oct, [facility] [place] [facility] [address] [id number] [place] [address] Sep, [facility] [place] [facility] [address] [id number] [place] [address] Sep, [facility] [place] [facility] [address] [id number] [place] [address] Sep, [facility] [address] [id number] [place] [address] Aug, [facility] [place] [facility] [address] [id number] [place] [address] Aug, [facility] [place] [facility] [address] [id number] [place] [address] Aug, [facility] [place] [facility] [address] [id number] [place] [address] Aug, [facility] [place] [facility] [address] [id number] [place] [address] Aug, [facility] [place] [facility] [address] [id number] [place] [address] Aug, [facility] [place] [facility] [address] [id number] [place] [address] Aug, [facility] [place] [facility] [address] [id number] [place] [address] Jul, [facility] [place] [facility] [address] [id number] [place] [address] Jul, [facility] [place] [facility] [address] [id number] [place] [address] Jun, [facility] [place] [facility] [address] [id number] [place] [address] Jun, [facility] [place] [facility] [address] [id number] [place] [address] 17 Jun, 2011 [facility] [place] [facility] [address] [id number] [place] [address] 15 Jun, 2011 [facility] [place] [facility] [id number] [place] [address] 14 Jun, 2011 [facility] [place] [facility] [address] [id number] [place] [address] 14 Jun, 2011 [facility] [place] [facility] [address] [id number] [place] [address] 07 Jun, 2011 [facility] [place] [facility] [address] [id number] [place] [address] Jun, [facility] [place] [facility] [address] [id number] [place] [address] Jun, [facility] [place] [facility] [address] [id number] [place] [address] Jun, [facility] [place] [facility] [address] [id number] [place] [address] May, [facility] [place] [facility] [address] [facility] [id number] [place] [address] May, [facility] [place] [facility] [address] [id number] [place] [address] May, [facility] [place] [facility] [address] [id number] [place] [address] May, [facility] [place] [facility] [address] [id number] [place] [address] May, [facility] [place] [facility] [address] [id number] [place] [address] May, [facility] [place] [facility] [address] [id number] [place] [address] Feb, [facility] [place] [facility] [address] [id number] [place] [address] December, [facility] [place] [facility] [address] [id number] [place] [address] Jul, [facility] [place] [facility] [address] [id number] [place] [address] Jul, [facility] [place] [facility] [address] [id number] [place] [address] Jul, [facility] [place] [facility] [address] [id number] [place] [address] Jul, [facility] [place] [facility] [address] [id number] [place] [address] 15 Jun, 2010 [facility] [place] [facility] [address] [id number] [place] [address] 31 Jul, 2009 [facility] [address] [id number] [place] [address] Jul, [facility] [address] [id number] [place] [address] Jul, [facility] [id number] [place] [address] Jul, [facility] [address] [address] Jul, [facility] [id number] [place] [address] Jul, [facility] [id number] [place] [address] Jan, [facility] [id number] [place] [address] 16 Sep, 2008 [facility] [id number] [place] [address] 11 Sep, 2008 IMMUNIZATIONS No Known Immunizations SOCIAL HISTORY Never Assessed REASON FOR VISIT PLAN OF CARE VITAL SIGNS Weight 211.5 lbs 2013-11-25 Temperature 98.8 degrees Fahrenheit 2013-11-25 Heart Rate 88 bpm 2013-11-25 Respiratory Rate 24 2013-11-25 Blood pressure systolic 154 mmHg 2013-11-25 Blood pressure diastolic 108 mmHg 2013-11-25 MEDICATIONS Unknown Medications RESULTS No Results PROCEDURES [...]
--- OUTSIDE RECORDS SUMMARY | 2020-01-27 10:09 | XMS REPORT ---
Author Author Silvia Reilly Organization [facility] Address [address] [place] [address] Care Team Providers Care Physical Therapy Assistant Name Role Phone EDUARDO Reilly Unavailable PROBLEMS Type Condition ICD9-CM Code [id number] Code Onset Dates Condition S tatus SNOMED Code Problem Hypertension I10 Active 9228564 3 Problem Generalized anxiety disorder F41.1 A ctive 172330023 Problem History of colon polyps Z86.010 Active 272288941 Problem History of diverticulitis Z87.19 Acti ve 481027064796418 Problem Family history of diabetes mellitus Z83.3 Active 970439145 Problem Excessive and frequent menstruation with irregular cycle N92.1 Active 734047574 Problem Hot flashes N95.1 Active 74563889 8 Problem Gastroesophageal reflux disease with esophagitis K 21.0 Active 314500863 Problem History of ovarian cyst Z87.42 Active 37029151 Problem Diverticulitis K57.92 Active 45125 6006 Problem Dense breast tissue R92.2 Active 342444381 Problem Perimenopausal N95.1 Active 33990 7891344472 Problem Mitral valve prolapse I34.1 Active 114077788 Problem Abnormal uterine bleeding (AUB) N93.9 Active 26406375063197 Problem Tachycardia R00.0 Active 2788017 ALLERGIES No Information ENCOUNTERS Encounter Location Date Diagnosis [facility] [address] [address] Sep, [facility] [address] [address] Sep, [place] [address] [address] Aug, Generalized anxiety disorder F41.1 and B ereavement Z63.4 [place] [address] [address] Aug, Generalized anxiety disorder F41.1 [facility] [address] [facility] [place] [address] Aug, Viral upper respiratory tract infection J06.9 [facility] [address] [facility] [place] [address] Jul, Generalized anxiety disorder F41.1 and B ereavement Z63.4 [facility] [address] [place] [id number] [place] [address] Jul, Acute non-recurrent frontal sinusitis J0 1.10 [facility] [address] [place] [id number] [address] [place] [address] Jul, [facility] N [place] [id number] [address] [place] [address] Jul, Sore throat J02.9 and Uvulit is K12.2 [place] [address] [place] [id number] [place] [address] Jul, Generalized anxiety disorder F41.1 [facility] [address] [place] [address] [address] Jul, Caries K02.9 [facility] [address] [place] [address] [id number] [place] [address] Jun, Generalized anxiety disorder F41.1 [place] [address] [place] [address] [id number] [place] [address] Jun, Generalized anxiety disorder F41.1 and B ereavement Z63.4 [place] [address] [place] [id number] [place] [address] May, Generalized anxiety disorder F41.1 [facility] [address] [facility] [id number] [address] [place] [address] May, Dysuria R30.0 [facility] [address] [place] [id number] [place] [address] May, Generalized anxiety disorder F41.1 and B ereavement Z63.4 [facility] [address] [address] May, [facility] [address] [address] Apr, Generalized anxiety disorder F41.1 and B ereavement Z63.4 [facility] [address] [address] Apr, Generalized anxiety disorder F41.1 [facility] [address] [facility] [id number] [place] [address] Mar, Caries K02.9 ; Dental examin ation Z01.20 ; Periodontitis K05.30 and Oral health maintenance status requiring routine preventive dental care K08.9 [place] [address] [address] Mar, Generalized anxiety disorder F41.1 [place] [address] [address] Mar, Gastrointestinal hemorrhage associated w ith gastroduodenitis K29.91 [place] [address] [address] Mar, Generalized anxiety disorder F41.1 and B ereavement Z63.4 [place] [address] [address] Mar, [facility] [address] [address] Mar, [facility] [address] [address] Mar, [facility] [address] [address] Mar, Tachycardia R00.0 and Essential hyperten boone I10 [facility] [address] [address] Feb, Generalized anxiety disorder F41.1 [place] [address] [address] Feb, Generalized anxiety disorder F41.1 and B ereavement Z63.4 [place] [address] [address] Feb, Generalized anxiety disorder F41.1 [facility] [address] [address] Feb, Generalized anxiety disorder F41.1 and B ereavement Z63.4 [place] [address] [address] Jan, [place] [address] [address] Jan, Breast cancer screening by mammogram Z12 .31 [place] [address] [address] Jan, Generalized anxiety disorder F41.1 and B ereavement Z63.4 [place] [address] [address] Jan, [place] [address] [address] December, Generalized anxiety disorder F41.1 and B ereavement Z63.4 [place] [address] [address] December, Diverticulitis K57.92 ; Dysuria R30.0 ; Other constipation K59.09 and Lower abdominal pain R10.30 [facility] [address] [facility] [id number] [address] [place] [address] Nov, Diverticulitis K57.92 [facility] [address] [address] Nov, Generalized anxiety disorder F41.1 and B ereavement Z63.4 [place] [address] [address] Nov, Generalized anxiety disorder F41.1 and B ereavement Z63.4 [place] [address] [address] Nov, Diverticulitis K57.92 [facility] [address] [place] [id number] [place] [address] Oct, Diverticulitis K57.92 [facility] [address] [address] Oct, Diverticulitis K57.92 [facility] [address] [address] Oct, Generalized anxiety disorder F41.1 [facility] [address] [facility] [id number] [place] [address] Oct, Right lower quadrant abdomin al pain R10.31 and Diverticulitis K57.92 [place] [address] [address] Sep, Generalized anxiety disorder F41.1 and B ereavement Z63.4 [place] [address] [address] Aug, [place] [address] [address] Aug, Generalized anxiety disorder F41.1 and B ereavement Z63.4 [facility] [address] [place] [id number] [address] Aug, Caries K02.9 [place] [address] [address] Jul, Generalized anxiety disorder F41.1 and B ereavement Z63.4 [place] [address] [address] Jul, Other acute gastritis without hemorrhage K29.00 ; Generalized anxiety disorder F41.1 ; Tachycardia R00.0 and Essential hypertension I10 [place] [address] [address] Jul, Generalized anxiety disorder F41.1 and B ereavement Z63.4 [facility] [address] [place] [id number] [place] [address] Jun, Generalized anxiety disorder F41.1 and B ereavement Z63.4 [facility] [address] [place] [id number] [place] [address] Jun, Generalized anxiety disorder F41.1 and B ereavement Z63.4 [facility] [address] [place] [id number] [address] Jun, Dental examination Z01.20 [facility] [address] [address] May, Generalized anxiety disorder F41.1 and B ereavement Z63.4 [facility] [address] [address] 08 May, 2018 Encounter for immunization Z23 [place] [address] [address] 08 May, 2018 Generalized anxiety disorder F41.1 and B ereavement Z63.4 [facility] [address] [address] May, [facility] [address] [address] 24 Apr, 2018 Generalized anxiety disorder F41.1 and B ereavement Z63.4 [place] [address] [address] 17 Apr, 2018 [facility] [address] [address] 13 Apr, 2018 Diverticulitis K57.92 [facility] [address] [address] 10 Apr, 2018 Generalized anxiety disorder F41.1 and B ereavement Z63.4 [facility] [address] [facility] [id number] [address] [place] [address] Mar, [facility] [address] [place] [id number] [address] [place] [address] Mar, Diverticulitis K57.92 [facility] [address] [address] Mar, Generalized anxiety disorder F41.1 and B ereavement Z63.4 [facility] [address] [address] Mar, Hypertension I10 [place] [address] [address] Mar, Generalized anxiety disorder F41.1 and B ereavement Z63.4 [place] [address] [address] Feb, Generalized anxiety disorder F41.1 and B ereavement Z63.4 [place] [address] [address] Feb, [place] [address] [address] Feb, Generalized anxiety disorder F41.1 and B ereavement Z63.4 [place] [address] [address] Feb, Generalized anxiety disorder F41.1 and B ereavement Z63.4 [place] [address] [address] Jan, Hypertension I10 and Acute non-recurrent maxillary sinusitis J01.00 [facility] [address] [address] December, [place] [address] [address] December, Hypertension I10 [place] [address] [address] December, Generalized anxiety disorder F41.1 [facility] [address] [facility] [id number] [place] [address] Oct, Encounter for dental examina tion Z01.20 [facility] [address] [place] [id number] [place] [address] 06 Oct, 2017 Encounter for dental examina tion Z01.20 [facility] [address] [place] [id number] [place] [address] 02 Oct, 2017 Dental examination Z01.20 [facility] [address] [address] Oct, Generalized anxiety disorder F41.1 [facility] [address] [place] [id number] [place] [address] Aug, Dental examination Z01.20 [facility] [address] [address] Aug, Generalized anxiety disorder F41.1 [place] [address] [address] Aug, [facility] [address] [address] 09 Aug, 2017 Encounter for dental examina tion Z01.20 [facility] [address] [address] Aug, Subacute maxillary sinusitis J01.00 [facility] [address] [address] Jul, Dental examination Z01.20 [facility] [address] [address] Jul, Generalized anxiety disorder F41.1 [facility] [address] [address] Jul, Diverticulitis K57.92 [facility] [address] [address] Jun, Encounter for immunization Z23 [facility] [address] [place] [id number] [place] [address] Jun, Dental examination Z01.20 [facility] [address] [address] Jun, Generalized anxiety disorder F41.1 [facility] [address] [id number] [address] Jun, Dental examination Z01.20 [facility] [address] [address] May, [facility] [address] [id number] May, Dental examination Z01.20 [facility] [address] [id number] May, Dental examination Z01.20 [facility] [address] [place] [id number] [place] [address] May, Dental examination Z01.20 [facility] [address] [address] May, [facility] [address] [address] May, Generalized anxiety disorder F41.1 [facility] [address] [address] May, Localized edema R60.0 ; Yeast vaginitis B37.3 and Gastroesophageal reflux disease with esophagitis K21.0 [facility] [address] [id number] Apr, Dental examination Z01.20 [facility] [address] [facility] [place] [address] Apr, Dental examination Z01.20 [facility] [address] [place] [id number] [place] [address] Apr, Dental examination Z01.20 [facility] [address] [address] Mar, Dyspepsia R10.13 [facility] [address] [address] Mar, Generalized anxiety disorder F41.1 [facility] [address] [address] Mar, Encounter for dental examina tion Z01.20 [facility] [address] [id number] Mar, [facility] [address] [id number] Mar, Dental examination Z01.20 [facility] [address] [address] Feb, Hypertension I10 and Tachycardia R00.0 [facility] [address] [place] [id number] [place] [address] Feb, [facility] [address] [address] Feb, Generalized anxiety disorder F41.1 [facility] [address] [id number] Feb, Dental examination Z01.20 [facility] [address] [address] Jan, Generalized anxiety disorder F41.1 [facility] [address] [address] December, Generalized anxiety disorder F41.1 [facility] [address] [id number] December, Encounter for dental examination Z01.20 [facility] [address] [address] Nov, [facility] [address] [address] Nov, [facility] [address] [address] Nov, Generalized anxiety disorder F41.1 [facility] [address] [address] Oct, [facility] [address] [id number] [place] [id number] Oct, Dental examination Z01.20 [place] [address] [address] Oct, Vaginal dryness N89.8 [place] [address] [address] Oct, Pseudoseizures F44.5 [place] [address] [address] Oct, Generalized anxiety disorder F41.1 [place] [address] [address] 28 Sep, 2016 Abnormal uterine bleeding (AUB) N93.9 ; Vaginal dryness N89.8 and Screening breast examination Z12.39 [place] [address] [address] Sep, Dental examination Z01.20 [place] [address] [address] Sep, Generalized anxiety disorder F41.1 [place] [address] [address] 06 Sep, 2016 Unspecified ovarian cyst, right side N83 .201 ; Unspecified ovarian cyst, left side N83.202 ; Yeast infection of the vagina B37.3 ; Mitral valve prolapse I34.1 and Hypertension I10 [place] [address] [address] Aug, Generalized anxiety disorder F41.1 [place] [address] [address] Jul, [place] [address] [address] Jul, Generalized anxiety disorder F41.1 [place] [address] [address] Jun, Generalized anxiety disorder F41.1 [facility] [address] [address] May, Encounter for immunization Z23 [facility] [address] [address] 17 May, 2016 Generalized anxiety disorder F41.1 and D epressive disorder, not elsewhere classified F32.9 [facility] [address] [address] Apr, Hypertension I10 [facility] [address] [address] Apr, Cervicalgia M54.2 [facility] [address] [facility] [id number] [address] [place] [address] Apr, Cervicalgia M54.2 [facility] [address] [address] Mar, Generalized anxiety disorder F41.1 and D epressive disorder, not elsewhere classified F32.9 [facility] [address] [id number] Feb, Visit for dental examination Z01.20 [facility] [address] [address] Feb, Pseudoseizures F44.5 ; Migraine without status migrainosus, not intractable, unspecified migraine type G43.909 and Essential hypertension I10 [facility] [address] [id number] Feb, Dental examination Z01.20 [facility] [address] [address] Feb, Generalized anxiety disorder F41.1 and D epressive disorder, not elsewhere classified F32.9 [facility] [address] [address] Jan, Tachycardia R00.0 [facility] [address] [address] December, Eustachian tube dysfunction, bilateral H 69.83 [place] [address] [address] December, Generalized anxiety disorder F41.1 and D epressive disorder, not elsewhere classified F32.9 [place] [address] [address] 29 Nov, 2015 [place] [address] [address] 28 Nov, 2015 [place] [address] [address] Nov, Hypertension I10 ; Onychomycosis B35.1 ; [...] and Complex cyst of left ovary N83.29 [place] [address] [address] 14 Nov, 2015 Sinusitis J32.9 [place] [address] [address] Oct, Complex cyst of left ovary N83.29 [place] [address] [address] Oct, Onychomycosis B35.1 [facility] [address] [id number] [place] [id number] 17 Oct, 2015 Dental examination Z01.20 [place] [address] [address] 09 Oct, 2015 Well woman exam Z01.419 [...] R92.2 and History of colon polyps Z86.010 [facility] [address] [address] 03 Oct, 2016 Generalized anxiety disorder F41.1 and D epressive disorder, not elsewhere classified F32.9 [place] [address] [address] Sep, Hypertension I10 and Onychomycosis B35.1 [place] [address] [address] Sep, Skin tags, multiple acquired L91.8 [place] [address] [address] Aug, [facility] [address] [address] Aug, [place] [address] [address] Aug, [place] [address] [address] Aug, Generalized anxiety disorder F41.1 and D epressive disorder, not elsewhere classified F32.9 [facility] [address] [address] Jul, Skin lesion L98.9 [place] [address] [address] Jun, Generalized anxiety disorder F41.1 and D epressive disorder, not elsewhere classified F32.9 [facility] [address] [address] Jun, [facility] [address] [address] Jun, Generalized anxiety disorder F41.1 [facility] [address] [address] May, Encounter for immunization Z23 and Right shoulder pain M25.511 [facility] [address] [address] 28 Apr, 2015 [facility] [address] [address] 14 Apr, 2015 Generalized anxiety disorder 300.02 and Depressive disorder, not elsewhere classified 311 [facility] [address] [id number] Mar, Dental examination V72.2 [facility] [address] [address] Mar, Generalized anxiety disorder 300.02 and Depressive disorder, not elsewhere classified 311 [facility] [address] [address] Mar, Depression, major, recurrent, 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.35 and 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 [facility] [address] [address] Feb, Generalized anxiety disorder 300.02 and Depressive disorder, not elsewhere classified 311 [facility] [address] [id number] Feb, Dental examination V72.2 [facility] [address] [address] Jan, Generalized anxiety disorder 300.02 and Depressive disorder, not elsewhere classified 311 [facility] [address] [address] Jan, [facility] [address] [address] December, Generalized anxiety disorder 300.02 and Depressive disorder, not elsewhere classified 311 [facility] [address] [address] December, Major depressive disorder, recurrent, un specified 296.30 and Panic disorder with agoraphobia 300.21 [facility] [address] [id number] [place] [address] 14 Nov, 2014 [facility] [address] [id number] [place] [address] Nov, [facility] [address] [id number] [place] [address] Oct, [facility] [address] [id number] [place] [address] Oct, [facility] [address] [id number] [place] [address] Oct, [facility] [address] [id number] [place] [address] Oct, [facility] [address] [id number] [place] [address] Sep, 2014 [facility] [address] [id number] [place] [address] Sep, 2014 [facility] [address] [id number] [place] [address] Sep, 2014 [facility] [address] [id number] [place] [address] Sep, 2014 [facility] [address] [id number] [place] [address] Sep, 2014 [facility] [address] [id number] [place] [address] Sep, 2014 [facility] [address] [id number] [place] [address] Sep, 2014 [facility] [address] [id number] [place] [address] Sep, 2014 [facility] [address] [id number] [place] [address] Sep, 2014 [facility] [address] [id number] [place] [address] Sep, 2014 [facility] [address] [id number] [place] [address] Aug, [facility] [address] [id number] [place] [address] Aug, [facility] [address] [id number] [place] [address] Jul, [facility] [address] [id number] [place] [address] Jul, [facility] [address] [id number] [place] [address] Jul, [facility] [address] [id number] [place] [address] Jul, [facility] [address] [id number] [place] [address] Jul, [facility] [address] [id number] [place] [address] Jul, [facility] [facility] [address] [id number] [place] [address] Jul, [facility] [place] [facility] [address] [id number] [place] [address] Jul, [facility] [place] [facility] [address] [id number] [place] [address] Jul, [facility] [place] [facility] [address] [id number] [place] [address] Jul, [facility] [place] [facility] [address] [id number] [place] [address] Jul, [facility] [place] [facility] [address] [id number] [place] [address] Jul, [facility] [place] [facility] [id number] [place] [address] Jun, [facility] [place] [facility] [address] [id number] [place] [address] Jun, [facility] [place] [facility] [address] [id number] [place] [address] May, [facility] [place] [facility] [address] [id number] [place] [address] May, [facility] [place] [facility] [address] [id number] [place] [address] May, [facility] [place] [facility] [address] [id number] [place] [address] May, [facility] [place] [facility] [address] [id number] [place] [address] May, [facility] [place] [facility] [address] [id number] [place] [address] May, [facility] [place] [facility] [address] [id number] [place] [address] May, [facility] [place] [facility] [address] [id number] [place] [address] May, [facility] [place] [facility] [address] [id number] [place] [address] May, [facility] [place] [facility] [address] [id number] [place] [address] May, [facility] [place] [facility] [address] [id number] [place] [address] May, [facility] [place] [facility] [address] [id number] [place] [address] May, [facility] [place] [facility] [address] [id number] [place] [address] 30 Apr, 2013 [facility] [place] [facility] [address] [id number] [place] [address] 30 Sep, 2013 [facility] [place] [facility] [address] [id number] [place] [address] 29 Sep, 2013 [facility] [place] [facility] [address] [id number] [place] [address] 29 Sep, 2013 [facility] [place] [facility] [address] [id number] [place] [address] 02 Sep, 2013 [facility] [place] [facility] [address] [id number] [place] [address] Apr, [facility] [place] [facility] [address] [facility] [id number] [place] [address] Feb, [facility] [place] [facility] [address] [facility] [id number] [facility] [address] Feb, [facility] [place] [facility] [address] [id number] [place] [address] Feb, [facility] [place] [facility] [address] [facility] [id number] [place] [address] Feb, [facility] [place] [facility] [address] [facility] [id number] [place] [address] Feb, [facility] [place] [facility] [address] [id number] [place] [address] Feb, [facility] [place] [facility] [address] [id number] [place] [address] Jan, [facility] [place] [facility] [address] [id number] [place] [address] Jan, [facility] [place] [facility] [address] [facility] [id number] [place] [address] Jan, [facility] [place] [facility] [address] [id number] [place] [address] Jan, [facility] [place] [facility] [address] [id number] [place] [address] Jan, [facility] [place] [facility] [address] [id number] [place] [address] Jan, [facility] [place] [facility] [address] [facility] [id number] [place] [address] Jan, [facility] [place] [facility] [address] [facility] [id number] [place] [address] Jan, [facility] [place] [facility] [address] [facility] [id number] [place] [address] December, [facility] [place] [facility] [address] [id number] [place] [address] December, [facility] [place] [facility] [address] [id number] [place] [address] December, [facility] [place] [facility] [address] [id number] [place] [address] December, [facility] [place] [facility] [address] [id number] [place] [address] Nov, [facility] [place] [facility] [address] [id number] [place] [address] Nov, [facility] [place] [facility] [address] [id number] [place] [address] Nov, [facility] [place] [facility] [address] [id number] [place] [address] Nov, [facility] [place] [facility] [address] [id number] [place] [address] Nov, [facility] [place] [facility] [address] [id number] [place] [address] Nov, [facility] [place] [facility] [address] [id number] [place] [address] Nov, [facility] [place] [facility] [address] [id number] [place] [address] Nov, [facility] [place] [facility] [address] [id number] [place] [address] Oct, [facility] [place] [facility] [address] [id number] [place] [address] Oct, [facility] [place] [facility] [address] [id number] [place] [address] Sep, [facility] [place] [facility] [address] [id number] [place] [address] Sep, [facility] [place] [facility] [address] [facility] [id number] [place] [address] Sep, [facility] [place] [facility] [address] [id number] [place] [address] Sep, [facility] [place] [facility] [address] [id number] [place] [address] Sep, [facility] [place] [facility] [address] [id number] [place] [address] 14 Sep, 2013 [facility] [place] [facility] [address] [id number] [place] [address] Aug, [facility] [place] [facility] [address] [id number] [place] [address] Aug, [facility] [place] [facility] [address] [id number] [place] [address] Aug, [facility] [place] [facility] [address] [id number] [place] [address] Aug, [facility] [place] [facility] [address] [id number] [place] [address] Jul, [facility] [place] [facility] [address] [id number] [place] [address] Jul, [facility] [place] [facility] [address] [id number] [place] [address] Jul, [facility] [place] [facility] [address] [id number] [place] [address] Jul, [facility] [place] [facility] [address] [id number] [place] [address] Jun, [facility] [place] [facility] [address] [id number] [place] [address] Jun, [facility] [place] [facility] [address] [id number] [place] [address] 24 May, 2013 [facility] [place] [facility] [address] [id number] [place] [address] 24 May, 2013 [facility] [place] [facility] [address] [id number] [place] [address] May, [facility] [place] [facility] [address] [id number] [place] [address] May, [facility] [place] [facility] [address] [id number] [place] [address] 10 May, 2013 [facility] [place] [facility] [address] [id number] [place] [address] 17 Apr, 2013 [facility] [place] [facility] [address] [facility] [id number] [facility] [address] Apr, [facility] [place] [facility] [address] [facility] [id number] [facility] [address] Mar, [facility] [place] [facility] [address] [id number] [facility] [address] Mar, [facility] [place] [facility] [address] [id number] [place] [address] Mar, [facility] [place] [facility] [address] [facility] [id number] [facility] [address] Mar, [facility] [place] [facility] [address] [id number] [facility] [address] Feb, [facility] [place] [facility] [address] [id number] [facility] [address] Feb, [facility] [place] [facility] [address] [id number] [place] [address] Feb, [facility] [place] [facility] [address] [id number] [place] [address] Feb, [facility] [place] [facility] [address] [id number] [place] [address] Feb, [facility] [place] [facility] [address] [id number] [place] [address] Jan, [facility] [place] [facility] [address] [id number] [place] [address] Jan, [facility] [place] [facility] [address] [id number] [facility] [address] Jan, [facility] [place] [facility] [address] [id number] [place] [address] Jan, [facility] [place] [facility] [address] [id number] [place] [address] Jan, [facility] [place] [facility] [address] [id number] [place] [address] December, [facility] [place] [facility] [address] [id number] [place] [address] December, [facility] [address] [id number] [place] [address] Nov, [facility] [place] [facility] [address] [id number] [place] [address] Nov, [facility] [place] [facility] [address] [id number] [place] [address] Oct, [facility] [place] [facility] [address] [id number] [place] [address] Oct, [facility] [place] [facility] [address] [id number] [place] [address] 05 Oct, 2012 [facility] [place] [facility] [address] [id number] [place] [address] 14 Sep, 2012 [facility] [place] [facility] [address] [id number] [place] [address] 24 Aug, 2012 [facility] [place] [facility] [address] [id number] [place] [address] Aug, [facility] [place] [facility] [address] [id number] [place] [address] Aug, [facility] [place] [facility] [address] [id number] [place] [address] Aug, [facility] [place] [facility] [address] [id number] [place] [address] Jul, [facility] [place] [facility] [address] [id number] [place] [address] Jul, [facility] [place] [facility] [address] [id number] [place] [address] Jul, [facility] [place] [facility] [id number] [place] [address] Jul, [facility] [place] [facility] [address] [id number] [place] [address] Jul, [facility] [place] [facility] [address] [id number] [place] [address] Jul, [facility] [place] [facility] [address] [id number] [place] [address] Jul, [facility] [place] [facility] [address] [id number] [place] [address] Jul, [facility] [place] [facility] [address] [id number] [place] [address] Jun, [facility] [place] [facility] [id number] [place] [address] Jun, [facility] [place] [facility] [address] [id number] [place] [address] Jun, [facility] [place] [facility] [id number] [place] [address] Jun, [facility] [place] [facility] [address] [id number] [place] [address] Jun, [facility] [place] [facility] [id number] [place] [address] Jun, [facility] [place] [facility] [address] [id number] [place] [address] May, [facility] [place] [facility] [id number] [place] [address] May, [facility] [place] [facility] [address] [id number] [place] [address] May, [facility] [place] [facility] [id number] [place] [address] May, [facility] [place] [facility] [address] [id number] [place] [address] Apr, [facility] [place] [facility] [address] [id number] [place] [address] Apr, [facility] [place] [facility] [address] [id number] [place] [address] Mar, [facility] [place] [facility] [address] [id number] [place] [address] Jan, [facility] [place] [facility] [address] [id number] [place] [address] 20 Jan, 2012 [facility] [place] [facility] [address] [facility] [id number] [place] [address] 16 Jan, 2012 [facility] [place] [facility] [address] [id number] [place] [address] 15 Jan, 2012 [facility] [place] [facility] [address] [id number] [place] [address] 14 Jan, 2012 [facility] [place] [facility] [address] [id number] [place] [address] 14 Jan, 2012 [facility] [place] [facility] [address] [id number] [place] [address] 07 Jan, 2012 [facility] [place] [facility] [address] [id number] [place] [address] December, [facility] [place] [facility] [address] [id number] [place] [address] December, [facility] [place] [facility] [address] [id number] [place] [address] December, [facility] [place] [facility] [address] [id number] [place] [address] December, [facility] [place] [facility] [address] [id number] [place] [address] Nov, [facility] [place] [facility] [address] [id number] [place] [address] 05 Nov, 2011 [facility] [place] [facility] [address] [id number] [place] [address] Oct, [facility] [place] [facility] [address] [id number] [place] [address] 28 Oct, 2011 [facility] [place] [facility] [address] [id number] [place] [address] Oct, [facility] [place] [facility] [address] [id number] [place] [address] Sep, [facility] [place] [facility] [address] [id number] [place] [address] Sep, [facility] [place] [facility] [address] [id number] [place] [address] Sep, [facility] [address] [id number] [place] [address] Aug, [facility] [place] [facility] [address] [id number] [place] [address] Aug, [facility] [place] [facility] [address] [id number] [place] [address] Aug, [facility] [place] [facility] [address] [id number] [place] [address] Aug, [facility] [place] [facility] [address] [id number] [place] [address] Aug, [facility] [place] [facility] [address] [id number] [place] [address] Aug, [facility] [place] [facility] [address] [id number] [place] [address] Aug, [facility] [place] [facility] [address] [id number] [place] [address] Jul, [facility] [place] [facility] [address] [id number] [place] [address] Jul, [facility] [place] [facility] [address] [id number] [place] [address] Jun, [facility] [place] [facility] [address] [id number] [place] [address] Jun, [facility] [place] [facility] [address] [id number] [place] [address] 17 Jun, 2011 [facility] [place] [facility] [address] [id number] [place] [address] 15 Jun, 2011 [facility] [place] [facility] [id number] [place] [address] 14 Jun, 2011 [facility] [place] [facility] [address] [id number] [place] [address] 14 Jun, 2011 [facility] [place] [facility] [address] [id number] [place] [address] 07 Jun, 2011 [facility] [place] [facility] [address] [id number] [place] [address] Jun, [facility] [place] [facility] [address] [id number] [place] [address] Jun, [facility] [place] [facility] [address] [id number] [place] [address] Jun, [facility] [place] [facility] [address] [id number] [place] [address] May, [facility] [place] [facility] [address] [facility] [id number] [place] [address] May, [facility] [place] [facility] [address] [id number] [place] [address] May, [facility] [place] [facility] [address] [id number] [place] [address] May, [facility] [place] [facility] [address] [id number] [place] [address] May, [facility] [place] [facility] [address] [id number] [place] [address] May, [facility] [place] [facility] [address] [id number] [place] [address] Feb, [facility] [place] [facility] [address] [id number] [place] [address] December, [facility] [place] [facility] [address] [id number] [place] [address] Jul, [facility] [place] [facility] [address] [id number] [place] [address] Jul, [facility] [place] [facility] [address] [id number] [place] [address] Jul, [facility] [place] [facility] [address] [id number] [place] [address] Jul, [facility] [place] [facility] [address] [id number] [place] [address] 15 Jun, 2010 [facility] [place] [facility] [id number] [place] [address] 31 Jul, 2009 [facility] [id number] [place] [address] Jul, [facility] [address] [address] Jul, [facility] [address] [address] Jul, [facility] [address] [address] Jul, [facility] [address] [address] Jul, [facility] [address] [address] Jan, [facility] [address] [address] 16 Sep, 2008 [facility] [address] [address] 11 Sep, 2008 IMMUNIZATIONS No Known Immunizations [...]
--- OUTSIDE RECORDS SUMMARY | 2020-01-27 10:10 | XMS REPORT ---
Author Author Silvia WILKINS Organization [facility] [place] Address [address] [place] [address] Care Team Providers Care Sales Clerk Name Role Phone LETTY WILKINS Unavailable PROBLEMS Type Condition ICD9-CM Code TPT31-ZW Code Onset Dates Condition S tatus SNOMED Code Problem Hypertension I10 Active 7736112 3 Problem Generalized anxiety disorder F41.1 A ctive 568949307 Problem History of colon polyps Z86.010 Active 742526801 Problem History of diverticulitis Z87.19 Acti ve [id number] Problem Family history of diabetes mellitus Z83.3 Active 693006921 Problem Excessive and frequent menstruation with irregular cycle N92.1 Active 708801161 Problem Hot flashes N95.1 Active 64454173 8 Problem Gastroesophageal reflux disease with esophagitis K 21.0 Active 717880921 Problem History of ovarian cyst Z87.42 Active 88862693 Problem Diverticulitis K57.92 Active 58947 6006 Problem Dense breast tissue R92.2 Active 557202682 Problem Perimenopausal N95.1 Active 91676 0819841672 Problem Mitral valve prolapse I34.1 Active 286176076 Problem Abnormal uterine bleeding (AUB) N93.9 Active 07310420090289 Problem Tachycardia R00.0 Active 3386392 ALLERGIES No Information ENCOUNTERS Encounter Location Date Diagnosis [place] [id number] [address] Sep, [facility] [place] [address] [address] Sep, [place] [address] [address] Aug, Generalized anxiety disorder F41.1 and B ereavement Z63.4 [place] [address] [address] Aug, [facility] [place] [address] [place] [id number] [place] [address] Aug, Viral upper respiratory tract infection J06.9 [facility] [place] [id number] [place] [address] Jul, Generalized anxiety disorder F41.1 and B ereavement Z63.4 [facility] [place] [address] [address] Jul, Acute non-recurrent frontal sinusitis J0 1.10 [facility] [address] [place] [id number] [address] [place] [address] Jul, [facility] [address] [place] [address] Jul, Sore throat J02.9 and Uvulit is K12.2 [place] [address] [place] [id number] [place] [address] Jul, Generalized anxiety disorder F41.1 [facility] [address] [place] [id number] [address] Jul, Caries K02.9 [place] [address] [place] [id number] [place] [address] Jun, Generalized anxiety disorder F41.1 [place] [address] [address] Jun, Generalized anxiety disorder F41.1 and B ereavement Z63.4 [place] [address] [place] [id number] [place] [address] May, Generalized anxiety disorder F41.1 [facility] [address] [place] [id number] [address] [place] [address] May, Dysuria R30.0 [facility] [place] [address] [place] [id number] [place] [address] May, Generalized anxiety disorder F41.1 and B ereavement Z63.4 [place] [address] [place] [address] [place] [address] May, [facility] [place] [address] [address] Apr, Generalized anxiety disorder F41.1 and B ereavement Z63.4 [place] [address] [place] [address] [place] [address] Apr, Generalized anxiety disorder F41.1 [facility] [address] [id number] [place] [address] Mar, Caries K02.9 ; Dental examin ation Z01.20 ; Periodontitis K05.30 and Oral health maintenance status requiring routine preventive dental care K08.9 [place] [address] [place] [address] [place] [address] Mar, Generalized anxiety disorder F41.1 [place] [address] [address] Mar, Gastrointestinal hemorrhage associated w ith gastroduodenitis K29.91 [place] [address] [address] Mar, Generalized anxiety disorder F41.1 and B ereavement Z63.4 [place] [address] [address] Mar, [place] [address] [address] Mar, [place] [address] [address] Mar, [place] [address] [address] Mar, Tachycardia R00.0 and Essential hyperten boone I10 [place] [address] [address] Feb, Generalized anxiety disorder F41.1 [place] [address] [address] Feb, Generalized anxiety disorder F41.1 and B ereavement Z63.4 [facility] [place] [address] [address] Feb, Generalized anxiety disorder F41.1 [facility] [place] [address] [address] Feb, Generalized anxiety disorder F41.1 and B ereavement Z63.4 [place] [address] [address] Jan, [facility] [place] [address] [address] Jan, Breast cancer screening by mammogram Z12 .31 [place] [address] [address] Jan, Generalized anxiety disorder F41.1 and B ereavement Z63.4 [place] [address] [address] Jan, [place] [address] [address] December, Generalized anxiety disorder F41.1 and B ereavement Z63.4 [place] [address] [address] December, Diverticulitis K57.92 ; Dysuria R30.0 ; Other constipation K59.09 and Lower abdominal pain R10.30 [facility] [address] [facility] [id number] [address] [address] Nov, Diverticulitis K57.92 [facility] [place] [address] [address] Nov, Generalized anxiety disorder F41.1 and B ereavement Z63.4 [facility] [place] [address] [address] Nov, Generalized anxiety disorder F41.1 and B ereavement Z63.4 [place] [address] [address] Nov, Diverticulitis K57.92 [facility] [address] [facility] [id number] [place] [address] Oct, Diverticulitis K57.92 [facility] [place] [address] [address] Oct, Diverticulitis K57.92 [facility] [place] [address] [address] Oct, Generalized anxiety disorder F41.1 [facility] [address] [facility] [id number] [place] [address] Oct, Right lower quadrant abdomin al pain R10.31 and Diverticulitis K57.92 [place] [address] [address] Sep, Generalized anxiety disorder F41.1 and B ereavement Z63.4 [place] [address] [address] Aug, [facility] [place] [address] [address] Aug, Generalized anxiety disorder F41.1 and B ereavement Z63.4 [facility] [address] [id number] [address] Aug, Caries K02.9 [place] [address] [address] Jul, Generalized anxiety disorder F41.1 and B ereavement Z63.4 [place] [address] [address] Jul, Other acute gastritis without hemorrhage K29.00 ; Generalized anxiety disorder F41.1 ; Tachycardia R00.0 and Essential hypertension I10 [facility] [place] [address] [address] Jul, Generalized anxiety disorder F41.1 and B ereavement Z63.4 [facility] [place] [address] [place] [id number] [place] [address] Jun, Generalized anxiety disorder F41.1 and B ereavement Z63.4 [place] [address] [place] [address] [place] [address] Jun, Generalized anxiety disorder F41.1 and B ereavement Z63.4 [facility] [address] [place] [id number] [address] 02 Jun, 2018 Dental examination Z01.20 [facility] [place] [address] [address] May, Generalized anxiety disorder F41.1 and B ereavement Z63.4 [place] [address] [address] 08 May, 2018 Encounter for immunization Z23 [place] [address] [address] May, Generalized anxiety disorder F41.1 and B ereavement Z63.4 [facility] [place] [address] [address] May, [facility] [place] [address] [address] 24 Apr, 2018 Generalized anxiety disorder F41.1 and B ereavement Z63.4 [place] [address] [address] 17 Apr, 2018 [facility] [place] [address] [address] 13 Apr, 2018 Diverticulitis K57.92 [facility] [place] [address] [address] 10 Apr, 2018 Generalized anxiety disorder F41.1 and B ereavement Z63.4 [facility] [address] [facility] [id number] [address] [place] [address] Mar, [facility] [address] [place] [id number] [address] [place] [address] Mar, Diverticulitis K57.92 [facility] [place] [address] [address] Mar, Generalized anxiety disorder F41.1 and B ereavement Z63.4 [facility] [place] [address] [address] Mar, Hypertension I10 [facility] [place] [address] [address] Mar, Generalized anxiety disorder F41.1 and B ereavement Z63.4 [place] [address] [address] Feb, Generalized anxiety disorder F41.1 and B ereavement Z63.4 [place] [address] [address] Feb, [facility] [place] [address] [address] Feb, Generalized anxiety disorder F41.1 and B ereavement Z63.4 [place] [address] [address] Feb, Generalized anxiety disorder F41.1 and B ereavement Z63.4 [place] [address] [address] Jan, Hypertension I10 and Acute non-recurrent maxillary sinusitis J01.00 [facility] [place] [address] [address] December, [facility] [place] [address] [address] December, Hypertension I10 [place] [address] [address] December, Generalized anxiety disorder F41.1 [facility] [address] [facility] [id number] [address] Oct, Encounter for dental examina tion Z01.20 [facility] [address] [id number] [address] 06 Oct, 2017 Encounter for dental examina tion Z01.20 [facility] [address] [id number] [address] Oct, Dental examination Z01.20 [facility] [place] [address] [address] Oct, Generalized anxiety disorder F41.1 [facility] [address] [place] [id number] [place] [address] Aug, Dental examination Z01.20 [facility] [place] [address] [address] Aug, Generalized anxiety disorder F41.1 [facility] [place] [address] [address] Aug, [facility] [address] [address] Aug, Encounter for dental examina tion Z01.20 [facility] [place] [address] [address] Aug, Subacute maxillary sinusitis J01.00 [facility] [address] [place] [id number] [place] [address] Jul, Dental examination Z01.20 [facility] [place] [address] [address] Jul, Generalized anxiety disorder F41.1 [facility] [place] [address] [address] Jul, Diverticulitis K57.92 [facility] [place] [address] [address] Jun, Encounter for immunization Z23 [facility] [address] [place] [id number] [place] [address] Jun, Dental examination Z01.20 [facility] [place] [address] [address] Jun, Generalized anxiety disorder F41.1 [facility] [address] [address] Jun, Dental examination Z01.20 [facility] [place] [address] [address] May, [facility] [address] [id number] May, Dental examination Z01.20 [facility] [address] [id number] May, Dental examination Z01.20 [facility] [address] [address] May, Dental examination Z01.20 [facility] [place] [address] [address] May, [facility] [place] [address] [address] May, Generalized anxiety disorder F41.1 [facility] [place] [address] [address] May, Localized edema R60.0 ; Yeast vaginitis B37.3 and Gastroesophageal reflux disease with esophagitis K21.0 [facility] [address] [id number] Apr, Dental examination Z01.20 [facility] [address] [place] [id number] [place] [address] Apr, Dental examination Z01.20 [facility] [address] [address] 05 Apr, 2017 Dental examination Z01.20 [facility] [place] [address] [address] Mar, Dyspepsia R10.13 [facility] [place] [address] [address] Mar, Generalized anxiety disorder F41.1 [facility] [address] [address] Mar, Encounter for dental examina tion Z01.20 [facility] [address] [id number] Mar, [facility] [address] [id number] Mar, Dental examination Z01.20 [facility] [place] [address] [address] Feb, Hypertension I10 and Tachycardia R00.0 [facility] [id number] [place] [address] Feb, [facility] [place] [address] [address] Feb, Generalized anxiety disorder F41.1 [facility] [address] [id number] Feb, Dental examination Z01.20 [facility] [place] [address] [address] Jan, Generalized anxiety disorder F41.1 [facility] [place] [address] [address] December, Generalized anxiety disorder F41.1 [facility] [address] [id number] December, Encounter for dental examination Z01.20 [facility] [place] [address] [address] Nov, [facility] [place] [address] [address] Nov, [facility] [place] [address] [address] Nov, Generalized anxiety disorder F41.1 [facility] [place] [address] [address] Oct, [facility] [address] [id number] [place] [id number] Oct, Dental examination Z01.20 [place] [address] [address] Oct, Vaginal dryness N89.8 [place] [address] [address] Oct, Pseudoseizures F44.5 [place] [address] [address] Oct, Generalized anxiety disorder F41.1 [place] [address] [address] Sep, Abnormal uterine bleeding (AUB) N93.9 ; Vaginal dryness N89.8 and Screening breast examination Z12.39 [place] [address] [address] Sep, Dental examination Z01.20 [place] [address] [address] Sep, Generalized anxiety disorder F41.1 [place] [address] [address] 06 Sep, 2016 Unspecified ovarian cyst, right side N83 .201 ; Unspecified ovarian cyst, left side N83.202 ; Yeast infection of the vagina B37.3 ; Mitral valve prolapse I34.1 and Hypertension I10 [place] [address] [address] Aug, Generalized anxiety disorder F41.1 [place] [address] [address] Jul, [place] [address] [address] Jul, Generalized anxiety disorder F41.1 [place] [address] [address] Jun, Generalized anxiety disorder F41.1 [facility] [place] [address] [address] May, Encounter for immunization Z23 [facility] [place] [address] [address] 17 May, 2016 Generalized anxiety disorder F41.1 and D epressive disorder, not elsewhere classified F32.9 [facility] [place] [address] [address] Apr, Hypertension I10 [facility] [place] [address] [address] Apr, Cervicalgia M54.2 [facility] [address] [facility] [id number] [address] [place] [address] Apr, Cervicalgia M54.2 [facility] [place] [address] [address] Mar, Generalized anxiety disorder F41.1 and D epressive disorder, not elsewhere classified F32.9 [facility] [address] [id number] Feb, Visit for dental examination Z01.20 [facility] [place] [address] [address] Feb, Pseudoseizures F44.5 ; Migraine without status migrainosus, not intractable, unspecified migraine type G43.909 and Essential hypertension I10 [facility] [address] [id number] Feb, Dental examination Z01.20 [facility] [place] [address] [address] Feb, Generalized anxiety disorder F41.1 and D epressive disorder, not elsewhere classified F32.9 [facility] [place] [address] [address] Jan, Tachycardia R00.0 [facility] [place] [address] [address] December, Eustachian tube dysfunction, bilateral H 69.83 [place] [address] [address] December, Generalized anxiety disorder F41.1 and D epressive disorder, not elsewhere classified F32.9 [place] [address] [id number] [place] [address] Nov, [place] [address] [address] 28 Nov, 2015 [place] [address] [address] Nov, Hypertension I10 ; Onychomycosis B35.1 ; [...] and Complex cyst of left ovary N83.29 [place] [address] [address] 14 Nov, 2015 Sinusitis J32.9 [place] [address] [address] Oct, Complex cyst of left ovary N83.29 [place] [id number] [place] [address] Oct, Onychomycosis B35.1 [facility] [address] [facility] [place] [id number] 17 Oct, 2015 Dental examination Z01.20 [place] [address] [address] 09 Oct, 2015 Well woman exam Z01.419 [...] R92.2 and History of colon polyps Z86.010 [facility] [place] [address] [address] Oct, 2016 Generalized anxiety disorder F41.1 and D epressive disorder, not elsewhere classified F32.9 [place] [address] [address] Sep, Hypertension I10 and Onychomycosis B35.1 [place] [address] [address] Sep, Skin tags, multiple acquired L91.8 [place] [address] [address] Aug, [place] [address] [address] Aug, [facility] [place] [address] [address] Aug, [place] [address] [address] Aug, Generalized anxiety disorder F41.1 and D epressive disorder, not elsewhere classified F32.9 [place] [address] [address] Jul, Skin lesion L98.9 [place] [address] [address] Jun, Generalized anxiety disorder F41.1 and D epressive disorder, not elsewhere classified F32.9 [place] [address] [address] Jun, [place] [address] [address] Jun, Generalized anxiety disorder F41.1 [place] [address] [address] May, Encounter for immunization Z23 and Right shoulder pain M25.511 [facility] [place] [address] [address] Apr, [facility] [place] [address] [address] 14 Apr, 2015 Generalized anxiety disorder 300.02 and Depressive disorder, not elsewhere classified 311 [facility] [address] [id number] Mar, Dental examination V72.2 [facility] [place] [address] [address] Mar, Generalized anxiety disorder 300.02 and Depressive disorder, not elsewhere classified 311 [facility] [place] [address] [address] Mar, Depression, major, recurrent, 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.35 and 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 [facility] [place] [address] [address] Feb, Generalized anxiety disorder 300.02 and Depressive disorder, not elsewhere classified 311 [facility] [address] [id number] Feb, Dental examination V72.2 [facility] [place] [address] [address] Jan, Generalized anxiety disorder 300.02 and Depressive disorder, not elsewhere classified 311 [facility] [place] [address] [address] Jan, [facility] [place] [address] [address] December, Generalized anxiety disorder 300.02 and Depressive disorder, not elsewhere classified 311 [facility] [place], [facility] [address] [address] December, Major depressive disorder, recurrent, un specified 296.30 and Panic disorder with agoraphobia 300.21 [facility] [place], [facility] [address] [id number] [place] [address] 14 Nov, 2014 [facility] [address] [facility] [id number] [place] [address] 13 Nov, 2014 [facility] [address] [id number] [place] [address] Oct, 2014 [facility] [address] [id number] [place] [address] Oct, [facility] [address] [id number] [place] [address] Oct, [facility] [address] [id number] [place] [address] Oct, [facility] [address] [id number] [place] [place] [address] Sep, 2014 [facility] [place] [facility] [address] [id number] [place] [address] Sep, 2014 [facility] [place] [facility] [address] [id number] [place] [address] Sep, 2014 [facility] [place] [facility] [address] [id number] [place] [address] Sep, 2014 [facility] [place] [facility] [address] [id number] [place] [address] Sep, 2014 [facility] [place] [facility] [address] [id number] [place] [address] Sep, 2014 [facility] [place] [facility] [address] [id number] [place] [address] Sep, 2014 [facility] [place] [facility] [address] [id number] [place] [address] Sep, 2014 [facility] [place] [facility] [address] [id number] [place] [address] Sep, 2014 [facility] [place] [facility] [address] [id number] [place] [address] Sep, 2014 [facility] [place] [facility] [address] [id number] [place] [address] Aug, [facility] [place] [facility] [address] [id number] [place] [address] Aug, [facility] [place] [facility] [address] [id number] [place] [address] Jul, [facility] [place] [facility] [address] [id number] [place] [address] Jul, [facility] [place] [facility] [address] [id number] [place] [address] Jul, [facility] [place] [facility] [address] [id number] [place] [address] Jul, [facility] [place] [facility] [address] [id number] [place] [address] Jul, [facility] [place] [facility] [address] [id number] [place] [address] Jul, [facility] [place] [facility] [address] [id number] [place] [address] Jul, [facility] [place] [facility] [address] [id number] [place] [address] Jul, [facility] [place] [facility] [address] [id number] [place] [address] Jul, [facility] [place] [facility] [address] [id number] [place] [address] Jul, [facility] [place] [facility] [address] [id number] [place] [address] Jul, [facility] [place] [facility] [address] [id number] [place] [address] Jul, [facility] [place] [facility] [address] [id number] [place] [address] Jun, [facility] [place] [facility] [address] [id number] [place] [address] Jun, [facility] [place] [facility] [address] [id number] [place] [address] May, [facility] [place] [facility] [address] [id number] [place] [address] May, [facility] [place] [facility] [address] [facility] [id number] [place] [address] May, [facility] [place] [facility] [address] [id number] [place] [address] May, [facility] [place] [facility] [address] [id number] [place] [address] May, [facility] [place] [facility] [address] [id number] [place] [address] May, [facility] [place] [facility] [address] [id number] [place] [address] May, [facility] [place] [facility] [address] [id number] [place] [address] May, [facility] [place] [facility] [address] [id number] [place] [address] May, [facility] [place] [facility] [address] [id number] [place] [address] May, [facility] [place] [facility] [address] [id number] [place] [address] May, [facility] [place] [facility] [address] [id number] [place] [address] May, [facility] [place] [facility] [address] [id number] [place] [address] 30 Apr, 2013 [facility] [place] [facility] [address] [id number] [place] [address] 30 Apr, 2013 [facility] [place] [facility] [address] [id number] [place] [address] 29 Apr, 2013 [facility] [place] [facility] [address] [id number] [place] [address] 29 Apr, 2013 [facility] [place] [facility] [address] [id number] [place] [address] Apr, 2013 [facility] [place] [facility] [address] [id number] [place] [address] Apr, [facility] [place] [facility] [address] [facility] [id number] [place] [address] Feb, [facility] [place] [facility] [address] [facility] [id number] [place] [address] Feb, [facility] [place] [facility] [address] [id number] [place] [address] Feb, [facility] [place] [facility] [address] [id number] [place] [address] Feb, [facility] [place] [facility] [address] [facility] [id number] [place] [address] Feb, [facility] [place] [facility] [address] [id number] [place] [address] Feb, [facility] [place] [facility] [address] [id number] [place] [address] Jan, [facility] [place] [facility] [address] [id number] [place] [address] Jan, [facility] [place] [facility] [address] [id number] [place] [address] Jan, [facility] [place] [facility] [address] [id number] [place] [address] Jan, [facility] [place] [facility] [address] [id number] [place] [address] Jan, [facility] [place] [facility] [address] [id number] [place] [address] Jan, [facility] [place] [facility] [address] [id number] [place] [address] Jan, [facility] [place] [facility] [address] [id number] [place] [address] Jan, [facility] [place] [facility] [address] [id number] [place] [address] December, [facility] [place] [facility] [address] [id number] [place] [address] December, [facility] [place] [facility] [address] [id number] [place] [address] December, [facility] [place] [facility] [address] [id number] [place] [address] December, [facility] [place] [facility] [address] [id number] [place] [address] Nov, [facility] [place] [facility] [address] [id number] [place] [address] Nov, [facility] [place] [facility] [address] [id number] [place] [address] Nov, [facility] [place] [facility] [address] [id number] [place] [address] Nov, [facility] [place] [facility] [address] [id number] [place] [address] Nov, [facility] [place] [facility] [address] [id number] [place] [address] Nov, [facility] [place] [facility] [address] [id number] [place] [address] Nov, [facility] [place] [facility] [address] [id number] [place] [address] Nov, [facility] [place] [facility] [address] [id number] [place] [address] Oct, [facility] [place] [facility] [address] [id number] [place] [address] Oct, [facility] [place] [facility] [address] [id number] [place] [address] Sep, [facility] [place] [facility] [address] [id number] [place] [address] Sep, [facility] [place] [facility] [address] [facility] [id number] [place] [address] Sep, [facility] [place] [facility] [address] [id number] [place] [address] Sep, [facility] [place] [facility] [address] [id number] [place] [address] Sep, [facility] [place] [facility] [address] [id number] [place] [address] 14 Sep, 2013 [facility] [place] [facility] [address] [id number] [place] [address] Aug, [facility] [place] [facility] [address] [id number] [place] [address] Aug, [facility] [place] [facility] [address] [id number] [place] [address] Aug, [facility] [place] [facility] [address] [id number] [place] [address] Aug, [facility] [place] [facility] [address] [id number] [place] [address] Jul, [facility] [place] [facility] [address] [id number] [place] [address] Jul, [facility] [place] [facility] [address] [id number] [place] [address] Jul, [facility] [place] [facility] [address] [id number] [place] [address] Jul, [facility] [place] [facility] [address] [id number] [place] [address] Jun, [facility] [place] [facility] [address] [id number] [place] [address] Jun, [facility] [place] [facility] [address] [id number] [place] [address] 24 May, 2013 [facility] [place] [facility] [address] [id number] [place] [address] 24 May, 2013 [facility] [place] [facility] [address] [id number] [place] [address] May, [facility] [place] [facility] [id number] [place] [address] 11 May, 2013 [facility] [place] [facility] [address] [id number] [place] [address] 10 May, 2013 [facility] [place] [facility] [address] [id number] [place] [address] 17 Apr, 2013 [facility] [place] [facility] [address] [id number] [place] [address] Apr, [facility] [place] [facility] [address] [facility] [id number] [facility] [place] [address] Mar, [facility] [place] [facility] [address] [facility] [id number] [place] [address] Mar, [facility] [place] [facility] [address] [id number] [facility] [place] [address] Mar, [facility] [place] [facility] [address] [facility] [id number] [facility] [place] [address] Mar, [facility] [place] [facility] [address] [id number] [place] [address] Feb, [facility] [place] [facility] [address] [id number] [place] [address] Feb, [facility] [place] [facility] [address] [id number] [place] [address] Feb, [facility] [place] [facility] [address] [id number] [place] [address] Feb, [facility] [place] [facility] [address] [id number] [place] [address] Feb, [facility] [place] [facility] [address] [id number] [place] [address] Jan, [facility] [place] [facility] [address] [id number] [place] [address] Jan, [facility] [place] [facility] [address] [facility] [id number] [place] [address] Jan, [facility] [place] [facility] [address] [id number] [place] [address] Jan, [facility] [place] [facility] [address] [id number] [place] [address] Jan, [facility] [place] [facility] [address] [id number] [place] [address] December, [facility] [place] [facility] [address] [id number] [place] [address] December, [facility] [place] [facility] [address] [id number] [place] [address] Nov, [facility] [place] [facility] [address] [id number] [place] [address] Nov, [facility] [place] [facility] [address] [id number] [place] [address] Oct, [facility] [place] [facility] [address] [id number] [place] [address] Oct, [facility] [place] [facility] [address] [id number] [place] [address] Oct, [facility] [place] [facility] [address] [id number] [place] [address] 14 Sep, 2012 [facility] [place] [facility] [address] [id number] [place] [address] 24 Aug, 2012 [facility] [place] [facility] [address] [id number] [place] [address] Aug, [facility] [place] [facility] [address] [id number] [place] [address] Aug, [facility] [place] [facility] [address] [id number] [place] [address] Aug, [facility] [place] [facility] [address] [id number] [place] [address] Jul, [facility] [place] [facility] [address] [id number] [place] [address] Jul, [facility] [place] [facility] [address] [id number] [place] [address] Jul, [facility] [place] [facility] [id number] [place] [address] Jul, [facility] [place] [facility] [address] [id number] [place] [address] Jul, [facility] [place] [facility] [address] [id number] [place] [address] Jul, [facility] [place] [facility] [address] [id number] [place] [address] Jul, [facility] [place] [facility] [address] [id number] [place] [address] Jul, [facility] [place] [facility] [address] [id number] [place] [address] Jun, [facility] [place] [facility] [id number] [place] [address] Jun, [facility] [place] [facility] [address] [id number] [place] [address] Jun, [facility] [place] [facility] [address] [id number] [place] [address] Jun, [facility] [place] [facility] [address] [id number] [place] [address] Jun, [facility] [place] [facility] [id number] [place] [address] Jun, [facility] [place] [facility] [id number] [place] [address] May, [facility] [place] [facility] [address] [id number] [place] [address] May, [facility] [place] [facility] [id number] [place] [address] May, [facility] [place] [facility] [address] [id number] [place] [address] May, [facility] [place] [facility] [address] [id number] [place] [address] Apr, [facility] [place] [facility] [address] [id number] [place] [address] Apr, [facility] [place] [facility] [id number] [place] [address] Mar, [facility] [place] [facility] [address] [id number] [place] [address] Jan, [facility] [place] [facility] [id number] [place] [address] 20 Jan, 2012 [facility] [place] [facility] [address] [facility] [id number] [facility] [place] [address] 16 Jan, 2012 [facility] [place] [facility] [address] [id number] [facility] [place] [address] 15 Jan, 2012 [facility] [place] [facility] [address] [id number] [place] [address] 14 Jan, 2012 [facility] [place] [facility] [address] [id number] [facility] [place] [address] 14 Jan, 2012 [facility] [place] [facility] [address] [facility] [id number] [facility] [place] [address] 07 Jan, 2012 [facility] [place] [facility] [address] [id number] [place] [address] December, [facility] [place] [facility] [address] [id number] [place] [address] December, [facility] [place] [facility] [address] [id number] [place] [address] December, [facility] [place] [facility] [address] [id number] [place] [address] December, [facility] [place] [facility] [address] [id number] [place] [address] Nov, [facility] [place] [facility] [address] [id number] [place] [address] Nov, [facility] [place] [facility] [address] [id number] [place] [address] Oct, [facility] [place] [facility] [address] [id number] [place] [address] Oct, [facility] [place] [facility] [address] [id number] [place] [address] Oct, [facility] [place] [facility] [address] [id number] [place] [address] Sep, [facility] [place] [facility] [address] [id number] [place] [address] Sep, [facility] [place] [facility] [address] [id number] [place] [address] Sep, [facility] [place] [facility] [address] [id number] [place] [address] Aug, [facility] [place] [facility] [address] [id number] [place] [address] Aug, [facility] [place] [facility] [address] [id number] [place] [address] Aug, [facility] [place] [facility] [address] [id number] [place] [address] Aug, [facility] [place] [facility] [address] [id number] [place] [address] Aug, [facility] [place] [facility] [address] [id number] [place] [address] Aug, [facility] [place] [facility] [address] [id number] [place] [address] Aug, [facility] [place] [facility] [address] [id number] [place] [address] Jul, [facility] [place] [facility] [address] [id number] [place] [address] Jul, [facility] [place] [facility] [address] [id number] [place] [address] Jun, [facility] [place] [facility] [address] [id number] [place] [address] Jun, [facility] [place] [facility] [address] [id number] [place] [address] 17 Jun, 2011 [facility] [place] [facility] [address] [id number] [place] [address] 15 Jun, 2011 [facility] [place] [facility] [id number] [place] [address] 14 Jun, 2011 [facility] [place] [facility] [address] [id number] [place] [address] 14 Jun, 2011 [facility] [place] [facility] [address] [id number] [place] [address] Jun, [facility] [place] [facility] [address] [id number] [place] [address] Jun, [facility] [place] [facility] [address] [id number] [place] [address] Jun, [facility] [place] [facility] [address] [id number] [place] [address] Jun, [facility] [place] [facility] [address] [id number] [place] [address] May, [facility] [place] [facility] [address] [id number] [place] [address] May, [facility] [place] [facility] [address] [id number] [place] [address] May, [facility] [place] [facility] [address] [id number] [place] [address] May, [facility] [address] [id number] [place] [address] May, [facility] [address] [id number] [place] [address] May, [facility] [address] [id number] [place] [address] Feb, [facility] [address] [id number] [place] [address] December, [facility] [address] [id number] [place] [address] Jul, [facility] [address] [id number] [place] [address] Jul, [facility] [address] [id number] [place] [address] Jul, [facility] [address] [id number] [place] [address] Jul, [facility] [address] [id number] [place] [address] 15 Jun, 2010 [facility] [address] [id number] [place] [address] Jul, [facility] [place] [id number] [place] [address] Jul, [facility] [place] [id number] [place] [address] Jul, [facility] [place] [id number] [place] [address] Jul, [facility] [place] [address] [address] Jul, [facility] [place] [address] [address] Jul, [facility] [place] [address] [address] Jan, [facility], [place], [facility] [id number] [place] [address] Sep, [facility], [place], [facility] [id number] [place] [address] Sep, IMMUNIZATIONS No Known Immunizations SOCIAL HISTORY [...]
--- OUTSIDE RECORDS SUMMARY | 2020-01-27 10:10 | XMS REPORT ---
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 Name Role Phone ROBERT Anthony Unavailable PROBLEMS Type Condition ICD9-CM Code FAL37-MD Code Onset Dates Condition S tatus SNOMED Code Problem Hypertension I10 Active 3408601 3 Problem Generalized anxiety disorder F41.1 A ctive 243287706 Problem History of colon polyps Z86.010 Active 259373030 Problem History of diverticulitis Z87.19 Acti ve 591804650334650 Problem Family history of diabetes mellitus Z83.3 Active 191307948 Problem Excessive and frequent menstruation with irregular cycle N92.1 Active 161147918 Problem Hot flashes N95.1 Active 29843066 8 Problem Gastroesophageal reflux disease with esophagitis K 21.0 Active 521393705 Problem History of ovarian cyst Z87.42 Active 74070727 Problem Diverticulitis K57.92 Active 79197 6006 Problem Dense breast tissue R92.2 Active 043416446 Problem Perimenopausal N95.1 Active 98166 6757844647 Problem Mitral valve prolapse I34.1 Active 070285012 Problem Abnormal uterine bleeding (AUB) N93.9 Active 44019322065930 Problem Tachycardia R00.0 Active 2523265 ALLERGIES No Information ENCOUNTERS Encounter Location Date Diagnosis [facility] [place] [address] [address] Sep, [facility] [place] [address] [address] Sep, [facility] [place] [address] [address] Aug, Generalized anxiety disorder F41.1 and B ereavement Z63.4 [facility] [place] [address] [address] Aug, Generalized anxiety disorder F41.1 [facility] [place] [address] [id number] [place] [address] Aug, Viral upper respiratory tract infection J06.9 [facility] [place] [address] [id number] [place] [address] Jul, Generalized anxiety disorder F41.1 and B ereavement Z63.4 [facility] [place] [id number] [place] [address] Jul, Acute non-recurrent frontal sinusitis J0 1.10 [facility] [address] [place] [address] [id number] [address] [place] [address] Jul, [facility] [address] [place] [address] [id number] [address] [place] [address] Jul, Sore throat J02.9 and Uvulit is K12.2 [place] [id number] [place] [address] Jul, Generalized anxiety disorder F41.1 [facility] [address] [place] [id number] [address] Jul, Caries K02.9 [facility] [place] [id number] [place] [address] Jun, Generalized anxiety disorder F41.1 [place] [address] [id number] [place] [address] Jun, Generalized anxiety disorder F41.1 and B ereavement Z63.4 [place] [id number] [place] [address] May, Generalized anxiety disorder F41.1 [facility] [address] [facility] [id number] [address] [place] [address] May, Dysuria R30.0 [facility] [place] [id number] [place] [address] May, Generalized anxiety disorder F41.1 and B ereavement Z63.4 [facility] [place] [address] [address] May, [facility] [place] [address] [address] Apr, Generalized anxiety disorder F41.1 and B ereavement Z63.4 [facility] [place] [address] [address] Apr, Generalized anxiety disorder F41.1 [facility] [address] [facility] [id number] [place] [address] Mar, Caries K02.9 ; Dental examin ation Z01.20 ; Periodontitis K05.30 and Oral health maintenance status requiring routine preventive dental care K08.9 [place] [address] [address] Mar, Generalized anxiety disorder F41.1 [place] [address] [address] Mar, Gastrointestinal hemorrhage associated w ith gastroduodenitis K29.91 [place] [address] [address] Mar, Generalized anxiety disorder F41.1 and B ereavement Z63.4 [place] [address] [address] Mar, [facility] [place] [address] [address] Mar, [facility] [place] [address] [address] Mar, [facility] [place] [address] [address] Mar, Tachycardia R00.0 and Essential hyperten boone I10 [facility] [place] [address] [address] Feb, Generalized anxiety disorder F41.1 [place] [address] [address] Feb, Generalized anxiety disorder F41.1 and B ereavement Z63.4 [place] [address] [address] Feb, Generalized anxiety disorder F41.1 [facility] [place] [address] [address] Feb, Generalized anxiety disorder F41.1 and B ereavement Z63.4 [place] [address] [address] Jan, [place] [address] [address] Jan, Breast cancer screening by mammogram Z12 .31 [place] [address] [address] Jan, Generalized anxiety disorder F41.1 and B ereavement Z63.4 [place] [address] [address] Jan, [place] [address] [address] December, Generalized anxiety disorder F41.1 and B ereavement Z63.4 [place] [address] [address] December, Diverticulitis K57.92 ; Dysuria R30.0 ; Other constipation K59.09 and Lower abdominal pain R10.30 [facility] [address] [facility] [id number] [address] [place] [address] Nov, Diverticulitis K57.92 [facility] [place] [address] [address] Nov, Generalized anxiety disorder F41.1 and B ereavement Z63.4 [place] [address] [address] Nov, Generalized anxiety disorder F41.1 and B ereavement Z63.4 [place] [address] [address] Nov, Diverticulitis K57.92 [facility] [id number] [place] [address] Oct, Diverticulitis K57.92 [facility] [place] [address] [address] Oct, Diverticulitis K57.92 [facility] [place] [address] [address] Oct, Generalized anxiety disorder F41.1 [facility] [address] [facility] [id number] [place] [address] Oct, Right lower quadrant abdomin al pain R10.31 and Diverticulitis K57.92 [place] [address] [address] Sep, Generalized anxiety disorder F41.1 and B ereavement Z63.4 [place] [address] [address] Aug, [place] [address] [address] Aug, Generalized anxiety disorder F41.1 and B ereavement Z63.4 [facility] [address] [place] [id number] [address] Aug, Caries K02.9 [place] [address] [address] Jul, Generalized anxiety disorder F41.1 and B ereavement Z63.4 [place] [address] [address] Jul, Other acute gastritis without hemorrhage K29.00 ; Generalized anxiety disorder F41.1 ; Tachycardia R00.0 and Essential hypertension I10 [place] [address] [address] Jul, Generalized anxiety disorder F41.1 and B ereavement Z63.4 [facility] [place] [id number] [place] [address] Jun, Generalized anxiety disorder F41.1 and B ereavement Z63.4 [facility] [place] [id number] [place] [address] Jun, Generalized anxiety disorder F41.1 and B ereavement Z63.4 [facility] [address] [place] [id number] [address] Jun, Dental examination Z01.20 [facility] [place] [address] [address] May, Generalized anxiety disorder F41.1 and B ereavement Z63.4 [facility] [place] [address] [address] 08 May, 2018 Encounter for immunization Z23 [place] [address] [address] 08 May, 2018 Generalized anxiety disorder F41.1 and B ereavement Z63.4 [facility] [place] [address] [address] May, [facility] [place] [address] [address] 24 Apr, 2018 Generalized anxiety disorder F41.1 and B ereavement Z63.4 [place] [address] [address] 17 Apr, 2018 [facility] [place] [address] [address] 13 Apr, 2018 Diverticulitis K57.92 [facility] [place] [address] [address] 10 Apr, 2018 Generalized anxiety disorder F41.1 and B ereavement Z63.4 [facility] [address] [facility] [id number] [address] [place] [address] Mar, [facility] [address] [id number] [address] [place] [address] Mar, Diverticulitis K57.92 [facility] [place] [address] [address] Mar, Generalized anxiety disorder F41.1 and B ereavement Z63.4 [facility] [place] [address] [address] Mar, Hypertension I10 [place] [address] [address] Mar, Generalized anxiety disorder F41.1 and B ereavement Z63.4 [place] [address] [address] Feb, Generalized anxiety disorder F41.1 and B ereavement Z63.4 [place] [address] [address] Feb, [place] [address] [address] Feb, Generalized anxiety disorder F41.1 and B ereavement Z63.4 [place] [address] [address] Feb, Generalized anxiety disorder F41.1 and B ereavement Z63.4 [place] [address] [address] Jan, Hypertension I10 and Acute non-recurrent maxillary sinusitis J01.00 [facility] [place] [address] [address] December, [place] [address] [address] December, Hypertension I10 [place] [address] [address] December, Generalized anxiety disorder F41.1 [facility] [address] [facility] [id number] [place] [address] Oct, Encounter for dental examina tion Z01.20 [facility] [address] [place] [id number] [place] [address] 06 Oct, 2017 Encounter for dental examina tion Z01.20 [facility] [address] [place] [id number] [place] [address] 02 Oct, 2017 Dental examination Z01.20 [facility] [place] [address] [address] Oct, Generalized anxiety disorder F41.1 [facility] [address] [place] [id number] [place] [address] Aug, Dental examination Z01.20 [facility] [place] [address] [address] Aug, Generalized anxiety disorder F41.1 [place] [address] [address] Aug, [facility] [address] [address] 09 Aug, 2017 Encounter for dental examina tion Z01.20 [facility] [place] [address] [address] Aug, Subacute maxillary sinusitis J01.00 [facility] [address] [address] Jul, Dental examination Z01.20 [facility] [place] [address] [address] Jul, Generalized anxiety disorder F41.1 [facility] [place] [address] [address] Jul, Diverticulitis K57.92 [facility] [place] [address] [address] Jun, Encounter for immunization Z23 [facility] [address] [place] [id number] [place] [address] Jun, Dental examination Z01.20 [facility] [place] [address] [address] Jun, Generalized anxiety disorder F41.1 [facility] [address] [place] [place] [address] Jun, Dental examination Z01.20 [facility] [place] [address] [address] May, [facility] [address] [id number] May, Dental examination Z01.20 [facility] [address] [id number] May, Dental examination Z01.20 [facility] [address] [place] [id number] [place] [address] May, Dental examination Z01.20 [facility] [place] [address] [address] May, [facility] [place] [address] [address] May, Generalized anxiety disorder F41.1 [facility] [place] [address] [address] May, Localized edema R60.0 ; Yeast vaginitis B37.3 and Gastroesophageal reflux disease with esophagitis K21.0 [facility] [address] [id number] Apr, Dental examination Z01.20 [facility] [address] [facility] [place] [address] Apr, Dental examination Z01.20 [facility] [address] [place] [id number] [place] [address] Apr, Dental examination Z01.20 [facility] [place] [address] [address] Mar, Dyspepsia R10.13 [facility] [place] [address] [address] Mar, Generalized anxiety disorder F41.1 [facility] [address] [address] Mar, Encounter for dental examina tion Z01.20 [facility] [address] [id number] Mar, [facility] [address] [id number] Mar, Dental examination Z01.20 [facility] [place] [address] [address] Feb, Hypertension I10 and Tachycardia R00.0 [facility] [address] [place] [id number] [place] [address] Feb, [facility] [place] [address] [address] Feb, Generalized anxiety disorder F41.1 [facility] [address] [id number] Feb, Dental examination Z01.20 [facility] [place] [address] [address] Jan, Generalized anxiety disorder F41.1 [facility] [place] [address] [address] December, Generalized anxiety disorder F41.1 [facility] [address] [id number] December, Encounter for dental examination Z01.20 [facility] [place] [address] [address] Nov, [facility] [place] [address] [address] Nov, [facility] [place] [address] [address] Nov, Generalized anxiety disorder F41.1 [facility] [place] [address] [address] Oct, [facility] [address] [facility] [place] [address] Oct, Dental examination Z01.20 [place] [address] [address] Oct, Vaginal dryness N89.8 [place] [address] [address] Oct, Pseudoseizures F44.5 [place] [address] [address] Oct, Generalized anxiety disorder F41.1 [place] [address] [address] 28 Sep, 2016 Abnormal uterine bleeding (AUB) N93.9 ; Vaginal dryness N89.8 and Screening breast examination Z12.39 [place] [address] [address] Sep, Dental examination Z01.20 [place] [address] [address] Sep, Generalized anxiety disorder F41.1 [place] [address] [address] 06 Sep, 2016 Unspecified ovarian cyst, right side N83 .201 ; Unspecified ovarian cyst, left side N83.202 ; Yeast infection of the vagina B37.3 ; Mitral valve prolapse I34.1 and Hypertension I10 [place] [address] [address] Aug, Generalized anxiety disorder F41.1 [place] [address] [address] Jul, [place] [address] [address] Jul, Generalized anxiety disorder F41.1 [place] [address] [address] Jun, Generalized anxiety disorder F41.1 [facility] [place] [address] [address] May, Encounter for immunization Z23 [facility] [place] [address] [address] 17 May, 2016 Generalized anxiety disorder F41.1 and D epressive disorder, not elsewhere classified F32.9 [facility] [place] [address] [address] Apr, Hypertension I10 [facility] [place] [address] [address] Apr, Cervicalgia M54.2 [facility] [address] [facility] [id number] [address] [place] [address] Apr, Cervicalgia M54.2 [facility] [place] [address] [address] Mar, Generalized anxiety disorder F41.1 and D epressive disorder, not elsewhere classified F32.9 [facility] [address] [id number] Feb, Visit for dental examination Z01.20 [facility] [place] [address] [address] Feb, Pseudoseizures F44.5 ; Migraine without status migrainosus, not intractable, unspecified migraine type G43.909 and Essential hypertension I10 [facility] [address] [id number] Feb, Dental examination Z01.20 [facility] [place] [address] [address] Feb, Generalized anxiety disorder F41.1 and D epressive disorder, not elsewhere classified F32.9 [facility] [place] [address] [address] Jan, Tachycardia R00.0 [facility] [place] [address] [address] December, Eustachian tube dysfunction, bilateral H 69.83 [place] [address] [address] December, Generalized anxiety disorder F41.1 and D epressive disorder, not elsewhere classified F32.9 [place] [address] [address] 29 Nov, 2015 [place] [address] [address] 28 Nov, 2015 [place] [address] [address] Nov, Hypertension I10 ; Onychomycosis B35.1 ; [...] and Complex cyst of left ovary N83.29 [place] [address] [address] 14 Nov, 2015 Sinusitis J32.9 [place] [address] [address] Oct, Complex cyst of left ovary N83.29 [place] [address] [address] Oct, Onychomycosis B35.1 [facility] [address] [facility] [place] [address] 17 Oct, 2015 Dental examination Z01.20 [place] [address] [address] 09 Oct, 2015 Well woman exam Z01.419 [...] R92.2 and History of colon polyps Z86.010 [facility] [place] [address] [address] 03 Oct, 2016 Generalized anxiety disorder F41.1 and D epressive disorder, not elsewhere classified F32.9 [place] [address] [address] Sep, Hypertension I10 and Onychomycosis B35.1 [place] [address] [address] Sep, Skin tags, multiple acquired L91.8 [place] [address] [address] Aug, [facility] [place] [address] [address] Aug, [place] [address] [address] Aug, [place] [address] [address] Aug, Generalized anxiety disorder F41.1 and D epressive disorder, not elsewhere classified F32.9 [facility] [place] [address] [address] Jul, Skin lesion L98.9 [place] [address] [address] Jun, Generalized anxiety disorder F41.1 and D epressive disorder, not elsewhere classified F32.9 [facility] [place] [address] [address] Jun, [facility] [place] [address] [address] Jun, Generalized anxiety disorder F41.1 [facility] [place] [address] [address] May, Encounter for immunization Z23 and Right shoulder pain M25.511 [facility] [place] [address] [address] 28 Apr, 2015 [facility] [place] [address] [address] 14 Apr, 2015 Generalized anxiety disorder 300.02 and Depressive disorder, not elsewhere classified 311 [facility] [address] [id number] Mar, Dental examination V72.2 [facility] [place] [address] [address] Mar, Generalized anxiety disorder 300.02 and Depressive disorder, not elsewhere classified 311 [facility] [place] [address] [address] Mar, Depression, major, recurrent, 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.35 and 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 [facility] [place] [address] [address] Feb, Generalized anxiety disorder 300.02 and Depressive disorder, not elsewhere classified 311 [facility] [address] [id number] Feb, Dental examination V72.2 [facility] [place] [address] [address] Jan, Generalized anxiety disorder 300.02 and Depressive disorder, not elsewhere classified 311 [facility] [place] [address] [address] Jan, [facility] [place] [address] [address] December, Generalized anxiety disorder 300.02 and Depressive disorder, not elsewhere classified 311 [facility] [place] [address] [address] December, Major depressive disorder, recurrent, un specified 296.30 and Panic disorder with agoraphobia 300.21 [facility] [place] [address] [id number] [place] [address] 14 Nov, 2014 [facility] [address] [id number] [place] [address] Nov, [facility] [address] [id number] [place] [address] Oct, [facility] [address] [id number] [place] [address] Oct, [facility] [address] [id number] [place] [address] Oct, [facility] [address] [id number] [place] [address] Oct, [facility] [address] [id number] [place] [address] Sep, 2014 [facility] [address] [id number] [place] [address] Sep, 2014 [facility] [address] [id number] [place] [address] Sep, 2014 [facility] [address] [id number] [place] [address] Sep, 2014 [facility] [address] [id number] [place] [address] Sep, 2014 [facility] [address] [id number] [place] [address] Sep, 2014 [facility] [address] [id number] [place] [address] Sep, 2014 [facility] [address] [id number] [place] [address] Sep, 2014 [facility] [address] [id number] [place] [address] Sep, 2014 [facility] [address] [id number] [place] [address] Sep, 2014 [facility] [address] [id number] [place] [address] Aug, [facility] [address] [id number] [place] [address] Aug, [facility] [address] [id number] [place] [address] Jul, [facility] [address] [id number] [place] [address] Jul, [facility] [address] [id number] [place] [address] Jul, [facility] [address] [id number] [place] [address] Jul, [facility] [address] [id number] [place] [address] Jul, [facility] [address] [id number] [place] [address] Jul, [facility] [address] [id number] [place] [address] Jul, [facility] [address] [id number] [place] [address] Jul, [facility] [facility] [address] [id number] [place] [address] Jul, [facility] [place] [facility] [address] [id number] [place] [address] Jul, [facility] [place] [facility] [address] [id number] [place] [address] Jul, [facility] [place] [facility] [address] [id number] [place] [address] Jul, [facility] [place] [facility] [id number] [place] [address] Jun, [facility] [place] [facility] [address] [id number] [place] [address] Jun, [facility] [place] [facility] [address] [id number] [place] [address] May, [facility] [place] [facility] [address] [id number] [place] [address] May, [facility] [place] [facility] [address] [id number] [place] [address] May, [facility] [place] [facility] [address] [id number] [place] [address] May, [facility] [place] [facility] [address] [id number] [place] [address] May, [facility] [place] [facility] [address] [id number] [place] [address] May, [facility] [place] [facility] [address] [id number] [place] [address] May, [facility] [place] [facility] [address] [id number] [place] [address] May, [facility] [place] [facility] [address] [id number] [place] [address] May, [facility] [place] [facility] [address] [id number] [place] [address] May, [facility] [place] [facility] [address] [id number] [place] [address] May, [facility] [place] [facility] [address] [id number] [place] [address] May, [facility] [place] [facility] [address] [id number] [place] [address] 30 Apr, 2013 [facility] [place] [facility] [address] [id number] [place] [address] 30 Sep, 2013 [facility] [place] [facility] [address] [id number] [place] [address] 29 Sep, 2013 [facility] [place] [facility] [address] [id number] [place] [address] 29 Sep, 2013 [facility] [place] [facility] [address] [id number] [place] [address] 02 Sep, 2013 [facility] [place] [facility] [address] [id number] [place] [address] Apr, [facility] [place] [facility] [address] [facility] [id number] [place] [address] Feb, [facility] [place] [facility] [address] [facility] [id number] [place] [address] Feb, [facility] [place] [facility] [address] [id number] [place] [address] Feb, [facility] [place] [facility] [address] [facility] [id number] [place] [address] Feb, [facility] [place] [facility] [address] [facility] [id number] [place] [address] Feb, [facility] [place] [facility] [address] [id number] [place] [address] Feb, [facility] [place] [facility] [address] [id number] [place] [address] Jan, [facility] [place] [facility] [address] [id number] [place] [address] Jan, [facility] [place] [facility] [address] [facility] [id number] [place] [address] Jan, [facility] [place] [facility] [address] [id number] [place] [address] Jan, [facility] [place] [facility] [address] [id number] [place] [address] Jan, [facility] [place] [facility] [address] [id number] [place] [address] Jan, [facility] [place] [facility] [address] [facility] [id number] [place] [address] Jan, [facility] [place] [facility] [address] [facility] [id number] [place] [address] Jan, [facility] [place] [facility] [address] [facility] [id number] [place] [address] December, [facility] [place] [facility] [address] [id number] [place] [address] December, [facility] [place] [facility] [address] [id number] [place] [address] December, [facility] [place] [facility] [address] [id number] [place] [address] December, [facility] [place] [facility] [address] [id number] [place] [address] Nov, [facility] [place] [facility] [address] [id number] [place] [address] Nov, [facility] [place] [facility] [address] [id number] [place] [address] Nov, [facility] [place] [facility] [address] [id number] [place] [address] Nov, [facility] [place] [facility] [address] [id number] [place] [address] Nov, [facility] [place] [facility] [address] [id number] [place] [address] Nov, [facility] [place] [facility] [address] [id number] [place] [address] Nov, [facility] [place] [facility] [address] [id number] [place] [address] Nov, [facility] [place] [facility] [address] [id number] [place] [address] Oct, [facility] [place] [facility] [address] [id number] [place] [address] Oct, [facility] [place] [facility] [address] [id number] [place] [address] Sep, [facility] [place] [facility] [address] [id number] [place] [address] Sep, [facility] [place] [facility] [address] [facility] [id number] [place] [id number] Sep, [facility] [place] [facility] [address] [id number] [place] [address] Sep, [facility] [place] [facility] [address] [id number] [place] [address] Sep, [facility] [place] [facility] [address] [id number] [place] [address] 14 Sep, 2013 [facility] [place] [facility] [address] [id number] [place] [address] Aug, [facility] [place] [facility] [address] [id number] [place] [address] Aug, [facility] [place] [facility] [address] [id number] [place] [address] Aug, [facility] [place] [facility] [address] [id number] [place] [address] Aug, [facility] [place] [facility] [address] [id number] [place] [address] Jul, [facility] [place] [facility] [address] [id number] [place] [address] Jul, [facility] [place] [facility] [address] [id number] [place] [address] Jul, [facility] [place] [facility] [address] [id number] [place] [address] Jul, [facility] [place] [facility] [address] [id number] [place] [address] Jun, [facility] [place] [facility] [address] [id number] [place] [address] Jun, [facility] [place] [facility] [address] [id number] [place] [address] 24 May, 2013 [facility] [place] [facility] [address] [id number] [place] [address] 24 May, 2013 [facility] [place] [facility] [address] [id number] [place] [address] May, [facility] [place] [facility] [address] [id number] [place] [address] May, [facility] [place] [facility] [address] [id number] [place] [address] 10 May, 2013 [facility] [place] [facility] [address] [id number] [place] [address] 17 Apr, 2013 [facility] [place] [facility] [address] [facility] [id number] [place] [address] Apr, [facility] [place] [facility] [address] [facility] [id number] [place] [address] Mar, [facility] [place] [facility] [address] [id number] [place] [address] Mar, [facility] [place] [facility] [address] [id number] [place] [address] Mar, [facility] [place] [facility] [address] [facility] [id number] [place] [address] Mar, [facility] [place] [facility] [address] [id number] [place] [address] Feb, [facility] [place] [facility] [address] [id number] [place] [address] Feb, [facility] [place] [facility] [address] [id number] [place] [address] Feb, [facility] [place] [facility] [address] [id number] [place] [address] Feb, [facility] [place] [facility] [address] [id number] [place] [address] Feb, [facility] [place] [facility] [address] [id number] [place] [address] Jan, [facility] [place] [facility] [address] [id number] [place] [address] Jan, [facility] [place] [facility] [address] [id number] [place] [address] Jan, [facility] [place] [facility] [address] [id number] [place] [address] Jan, [facility] [place] [facility] [address] [id number] [place] [address] Jan, [facility] [place] [facility] [address] [id number] [place] [address] December, [facility] [place] [facility] [address] [id number] [place] [address] December, [facility] [address] [id number] [place] [address] Nov, [facility] [place] [facility] [address] [id number] [place] [address] Nov, [facility] [place] [facility] [address] [id number] [place] [address] Oct, [facility] [place] [facility] [address] [id number] [place] [address] Oct, [facility] [place] [facility] [address] [id number] [place] [address] 05 Oct, 2012 [facility] [place] [facility] [address] [id number] [place] [address] 14 Sep, 2012 [facility] [place] [facility] [address] [id number] [place] [address] 24 Aug, 2012 [facility] [place] [facility] [address] [id number] [place] [address] Aug, [facility] [place] [facility] [address] [id number] [place] [address] Aug, [facility] [place] [facility] [address] [id number] [place] [address] Aug, [facility] [place] [facility] [address] [id number] [place] [address] Jul, [facility] [place] [facility] [address] [id number] [place] [address] Jul, [facility] [place] [facility] [address] [id number] [place] [address] Jul, [facility] [place] [facility] [id number] [place] [address] Jul, [facility] [place] [facility] [address] [id number] [place] [address] Jul, [facility] [place] [facility] [address] [id number] [place] [address] Jul, [facility] [place] [facility] [address] [id number] [place] [address] Jul, [facility] [place] [facility] [address] [id number] [place] [address] Jul, [facility] [place] [facility] [address] [id number] [place] [address] Jun, [facility] [place] [facility] [id number] [place] [address] Jun, [facility] [place] [facility] [address] [id number] [place] [address] Jun, [facility] [place] [facility] [id number] [place] [address] Jun, [facility] [place] [facility] [address] [id number] [place] [address] Jun, [facility] [place] [facility] [id number] [place] [address] Jun, [facility] [place] [facility] [address] [id number] [place] [address] May, [facility] [place] [facility] [id number] [place] [address] May, [facility] [place] [facility] [address] [id number] [place] [address] May, [facility] [place] [facility] [id number] [place] [address] May, [facility] [place] [facility] [address] [id number] [place] [address] Apr, [facility] [place] [facility] [address] [id number] [place] [address] Apr, [facility] [place] [facility] [address] [id number] [place] [address] Mar, [facility] [place] [facility] [address] [id number] [place] [address] Jan, [facility] [place] [facility] [address] [id number] [place] [address] 20 Jan, 2012 [facility] [place] [facility] [address] [facility] [id number] [place] [address] 16 Jan, 2012 [facility] [place] [facility] [address] [id number] [place] [address] 15 Jan, 2012 [facility] [place] [facility] [address] [id number] [place] [address] 14 Jan, 2012 [facility] [place] [facility] [address] [id number] [place] [address] 14 Jan, 2012 [facility] [place] [facility] [address] [id number] [place] [address] 07 Jan, 2012 [facility] [place] [facility] [address] [id number] [place] [address] December, [facility] [place] [facility] [address] [id number] [place] [address] December, [facility] [place] [facility] [address] [id number] [place] [address] December, [facility] [place] [facility] [address] [id number] [place] [address] December, [facility] [place] [facility] [address] [id number] [place] [address] Nov, [facility] [place] [facility] [address] [id number] [place] [address] 05 Nov, 2011 [facility] [place] [facility] [address] [id number] [place] [address] Oct, [facility] [place] [facility] [address] [id number] [place] [address] 28 Oct, 2011 [facility] [place] [facility] [address] [id number] [place] [address] Oct, [facility] [place] [facility] [address] [id number] [place] [address] Sep, [facility] [place] [facility] [address] [id number] [place] [address] Sep, [facility] [place] [facility] [address] [id number] [place] [address] Sep, [facility] [address] [id number] [place] [address] Aug, [facility] [place] [facility] [address] [id number] [place] [address] Aug, [facility] [place] [facility] [address] [id number] [place] [address] Aug, [facility] [place] [facility] [address] [id number] [place] [address] Aug, [facility] [place] [facility] [address] [id number] [place] [address] Aug, [facility] [place] [facility] [address] [id number] [place] [address] Aug, [facility] [place] [facility] [address] [id number] [place] [address] Aug, [facility] [place] [facility] [address] [id number] [place] [address] Jul, [facility] [place] [facility] [address] [id number] [place] [address] Jul, [facility] [place] [facility] [address] [id number] [place] [address] Jun, [facility] [place] [facility] [address] [id number] [place] [address] Jun, [facility] [place] [facility] [address] [id number] [place] [address] 17 Jun, 2011 [facility] [place] [facility] [address] [id number] [place] [address] 15 Jun, 2011 [facility] [place] [facility] [id number] [place] [address] 14 Jun, 2011 [facility] [place] [facility] [address] [id number] [place] [address] 14 Jun, 2011 [facility] [place] [facility] [address] [id number] [place] [address] 07 Jun, 2011 [facility] [place] [facility] [address] [id number] [place] [address] Jun, [facility] [place] [facility] [address] [id number] [place] [address] Jun, [facility] [place] [facility] [address] [id number] [place] [address] Jun, [facility] [place] [facility] [address] [id number] [place] [address] May, [facility] [place] [facility] [address] [facility] [id number] [place] [address] May, [facility] [place] [facility] [address] [id number] [place] [address] May, [facility] [place] [facility] [address] [id number] [place] [address] May, [facility] [place] [facility] [address] [id number] [place] [address] May, [facility] [place] [facility] [address] [id number] [place] [address] May, [facility] [place] [facility] [address] [id number] [place] [address] Feb, [facility] [place] [facility] [address] [id number] [place] [address] December, [facility] [place] [facility] [address] [id number] [place] [address] Jul, [facility] [place] [facility] [address] [id number] [place] [address] Jul, [facility] [place] [facility] [address] [id number] [place] [address] Jul, [facility] [place] [facility] [address] [id number] [place] [address] Jul, [facility] [place] [facility] [address] [id number] [place] [address] 15 Jun, 2010 [facility] [place] [facility] [address] [id number] [place] [address] 31 Jul, 2009 [facility] [place] [id number] [place] [address] Jul, [facility] [place] [address] [id number] [place] [address] Jul, [facility] [place] [id number] [place] [address] Jul, [facility] [place] [address] [address] Jul, [facility] [place] [address] [address] Jul, [facility] [place] [id number] [place] [address] Jan, [facility] [place] [id number] [place] [address] 16 Sep, 2008 [facility] [place] [id number] [place] [address] Sep, IMMUNIZATIONS No Known Immunizations SOCIAL HISTORY Never Assessed REASON FOR VISIT PLAN OF CARE VITAL SIGNS Height 66 in 2014-01-06 Weight 212 lbs 2014-01-06 Heart Rate 92 bpm 2014-01-06 Blood pressure systolic 140 mmHg 2014-01-06 Blood pressure diastolic 94 mmHg 2014-01-06 MEDICATIONS Unknown Medications RESULTS No Results PROCEDURES [...]
--- OUTSIDE RECORDS SUMMARY | 2020-01-27 10:10 | XMS REPORT ---
Author Author Silvia MERCHANT Organization [facility] [place] Address [address] [place] [address] Care Team Providers Care Smasher Name Role Phone KVNG MERCHANT Unavailable PROBLEMS Type Condition ICD9-CM Code VRN45-JT Code Onset Dates Condition S tatus SNOMED Code Problem Hypertension I10 Active 4757234 3 Problem Generalized anxiety disorder F41.1 A ctive 098340820 Problem History of colon polyps Z86.010 Active 771082466 Problem History of diverticulitis Z87.19 Acti ve [id number] Problem Family history of diabetes mellitus Z83.3 Active 834565206 Problem Excessive and frequent menstruation with irregular cycle N92.1 Active 625018415 Problem Hot flashes N95.1 Active 75137204 8 Problem Gastroesophageal reflux disease with esophagitis K 21.0 Active 834851679 Problem History of ovarian cyst Z87.42 Active 60575304 Problem Diverticulitis K57.92 Active 89312 6006 Problem Dense breast tissue R92.2 Active 460149918 Problem Perimenopausal N95.1 Active 48586 3559708798 Problem Mitral valve prolapse I34.1 Active 072046334 Problem Abnormal uterine bleeding (AUB) N93.9 Active 69673643868431 Problem Tachycardia R00.0 Active 8701642 ALLERGIES No Information ENCOUNTERS Encounter Location Date Diagnosis [place] [id number] [place] [address] 27 Sep, 2019 [facility] [place] [address] [address] Sep, [place] [address] [address] Aug, Generalized anxiety disorder F41.1 and B ereavement Z63.4 [place] [address] [address] Aug, [facility] [place] [id number] [place] [address] Aug, Viral upper respiratory tract infection J06.9 [facility] [place] [id number] [place] [address] Jul, Generalized anxiety disorder F41.1 and B ereavement Z63.4 [facility] [place] [address] [place] [address] Jul, Acute non-recurrent frontal sinusitis J0 1.10 [facility] [id number] [place] [address] Jul, [facility] [address] [place] [address] Jul, Sore throat J02.9 and Uvulit is K12.2 [place] [id number] [place] [address] Jul, Generalized anxiety disorder F41.1 [facility] [address] [place] [id number] [address] Jul, Caries K02.9 [facility] [place] [address] [place] [address] Jun, Generalized anxiety disorder F41.1 [place] [address] [place] [address] Jun, Generalized anxiety disorder F41.1 and B ereavement Z63.4 [facility] [place] [id number] [place] [address] May, Generalized anxiety disorder F41.1 [facility] [id number] [place] [address] May, Dysuria R30.0 [facility] [place] [id number] [place] [address] May, Generalized anxiety disorder F41.1 and B ereavement Z63.4 [place] [address] [address] May, [facility] [place] [address] [address] Apr, Generalized anxiety disorder F41.1 and B ereavement Z63.4 [place] [address] [place] [address] Apr, Generalized anxiety disorder F41.1 [facility] [address] [facility] [place] [address] Mar, Caries K02.9 ; Dental examin ation Z01.20 ; Periodontitis K05.30 and Oral health maintenance status requiring routine preventive dental care K08.9 [place] [address] [address] Mar, Generalized anxiety disorder F41.1 [place] [address] [address] Mar, Gastrointestinal hemorrhage associated w ith gastroduodenitis K29.91 [place] [address] [address] Mar, Generalized anxiety disorder F41.1 and B ereavement Z63.4 [place] [address] [address] Mar, [place] [address] [address] Mar, [place] [address] [address] Mar, [place] [address] [address] Mar, Tachycardia R00.0 and Essential hyperten boone I10 [place] [address] [address] Feb, Generalized anxiety disorder F41.1 [place] [address] [address] Feb, Generalized anxiety disorder F41.1 and B ereavement Z63.4 [place] [address] [address] Feb, Generalized anxiety disorder F41.1 [facility] [place] [address] [address] Feb, Generalized anxiety disorder F41.1 and B ereavement Z63.4 [place] [address] [address] Jan, [place] [address] [address] Jan, Breast cancer screening by mammogram Z12 .31 [place] [address] [address] Jan, Generalized anxiety disorder F41.1 and B ereavement Z63.4 [place] [address] [address] Jan, [place] [address] [address] December, Generalized anxiety disorder F41.1 and B ereavement Z63.4 [place] [address] [address] December, Diverticulitis K57.92 ; Dysuria R30.0 ; Other constipation K59.09 and Lower abdominal pain R10.[address] [facility] [address] [facility] [id number] [place] [address] Nov, Diverticulitis K57.92 [facility] [place] [address] [address] Nov, Generalized anxiety disorder F41.1 and B ereavement Z63.4 [facility] [place] [address] [address] Nov, Generalized anxiety disorder F41.1 and B ereavement Z63.4 [place] [address] [address] Nov, Diverticulitis K57.92 [facility] [address] [facility] [id number] [place] [address] Oct, Diverticulitis K57.92 [facility] [place] [id number] [place] [address] Oct, Diverticulitis K57.92 [facility] [place] [address] [address] Oct, Generalized anxiety disorder F41.1 [facility] [address] [facility] [id number] [place] [address] Oct, Right lower quadrant abdomin al pain R10.31 and Diverticulitis K57.92 [place] [address] [address] Sep, Generalized anxiety disorder F41.1 and B ereavement Z63.4 [place] [address] [place] [address] Aug, [place] [address] [address] Aug, Generalized anxiety disorder F41.1 and B ereavement Z63.4 [facility] [address] [facility] [place] [address] Aug, Caries K02.9 [place] [address] [address] Jul, Generalized anxiety disorder F41.1 and B ereavement Z63.4 [place] [address] [address] Jul, Other acute gastritis without hemorrhage K29.00 ; Generalized anxiety disorder F41.1 ; Tachycardia R00.0 and Essential hypertension I10 [place] [address] [address] Jul, Generalized anxiety disorder F41.1 and B ereavement Z63.4 [place] [address] [address] Jun, Generalized anxiety disorder F41.1 and B ereavement Z63.4 [place] [address] [address] Jun, Generalized anxiety disorder F41.1 and B ereavement Z63.4 [facility] [address] [facility] [place] [address] Jun, Dental examination Z01.20 [facility] [place] [address] [address] May, Generalized anxiety disorder F41.1 and B ereavement Z63.4 [place] [address] [address] May, Encounter for immunization Z23 [place] [address] [address] May, Generalized anxiety disorder F41.1 and B ereavement Z63.4 [facility] [place] [address] [address] May, [facility] [place] [address] [address] 24 Apr, 2018 Generalized anxiety disorder F41.1 and B ereavement Z63.4 [place] [address] [address] 17 Apr, 2018 [facility] [place] [address] [address] 13 Apr, 2018 Diverticulitis K57.92 [facility] [place] [address] [address] 10 Apr, 2018 Generalized anxiety disorder F41.1 and B ereavement Z63.4 [facility] [address] [facility] [id number] [address] [place] [address] Mar, [facility] [id number] [place] [address] Mar, Diverticulitis K57.92 [facility] [place] [address] [address] Mar, Generalized anxiety disorder F41.1 and B ereavement Z63.4 [facility] [place] [address] [address] Mar, Hypertension I10 [facility] [place] [address] [address] Mar, Generalized anxiety disorder F41.1 and B ereavement Z63.4 [facility] [place] [address] [address] Feb, Generalized anxiety disorder F41.1 and B ereavement Z63.4 [place] [address] [address] Feb, [facility] [place] [address] [address] Feb, Generalized anxiety disorder F41.1 and B ereavement Z63.4 [facility] [place] [address] [address] Feb, Generalized anxiety disorder F41.1 and B ereavement Z63.4 [facility] [place] [address] [address] Jan, Hypertension I10 and Acute non-recurrent maxillary sinusitis J01.00 [facility] [place] [address] [address] December, [facility] [place] [address] [address] December, Hypertension I10 [place] [address] [address] December, Generalized anxiety disorder F41.1 [facility] [address] [facility] [place] [address] Oct, Encounter for dental examina tion Z01.20 [facility] [address] [place] [address] [place] [address] 06 Oct, 2017 Encounter for dental examina tion Z01.20 [facility] [address] [place] [id number] [address] 02 Oct, 2017 Dental examination Z01.20 [facility] [place] [address] [address] Oct, Generalized anxiety disorder F41.1 [facility] [address] [address] Aug, Dental examination Z01.20 [facility] [place] [address] [address] Aug, Generalized anxiety disorder F41.1 [facility] [place] [address] [address] Aug, [facility] [address] [place] [address] Aug, Encounter for dental examina tion Z01.20 [facility] [place] [address] [address] Aug, Subacute maxillary sinusitis J01.00 [facility] [address] [place] [address] [id number] [place] [address] Jul, Dental examination Z01.20 [facility] [place] [address] [address] Jul, Generalized anxiety disorder F41.1 [facility] [place] [address] [address] Jul, Diverticulitis K57.92 [facility] [place] [address] [address] Jun, Encounter for immunization Z23 [facility] [address] [place] [address] [id number] [place] [address] Jun, Dental examination Z01.20 [facility] [place] [address] [address] Jun, Generalized anxiety disorder F41.1 [facility] [address] [address] 07 Jun, 2017 Dental examination Z01.20 [facility] [place] [address] [address] May, [facility] [address] [id number] May, Dental examination Z01.20 [facility] [address] [id number] May, Dental examination Z01.20 [facility] [address] [address] May, Dental examination Z01.20 [facility] [place] [address] [address] May, [facility] [place] [address] [address] May, Generalized anxiety disorder F41.1 [facility] [place] [address] [address] May, Localized edema R60.0 ; Yeast vaginitis B37.3 and Gastroesophageal reflux disease with esophagitis K21.0 [facility] [address] [id number] Apr, Dental examination Z01.20 [facility] [address] [address] Apr, Dental examination Z01.20 [facility] [address] [address] Apr, Dental examination Z01.20 [facility] [place] [address] [address] Mar, Dyspepsia R10.13 [facility] [place] [address] [address] Mar, Generalized anxiety disorder F41.1 [facility] [address] [place] [address] [id number] [place] [address] Mar, Encounter for dental examina tion Z01.20 [facility] [address] [id number] Mar, [facility] [address] [id number] Mar, Dental examination Z01.20 [facility] [place] [address] [address] Feb, Hypertension I10 and Tachycardia R00.0 [facility] [address] [address] Feb, [facility] [place] [address] [address] Feb, Generalized anxiety disorder F41.1 [facility] [address] [id number] Feb, Dental examination Z01.20 [facility] [place] [address] [address] Jan, Generalized anxiety disorder F41.1 [facility] [place] [address] [address] December, Generalized anxiety disorder F41.1 [facility] [address] [id number] December, Encounter for dental examination Z01.20 [facility] [place] [address] [address] Nov, [facility] [place] [address] [address] Nov, [facility] [place] [address] [address] Nov, Generalized anxiety disorder F41.1 [facility] [place] [address] [address] Oct, [facility] [address] [facility] [place] [id number] Oct, Dental examination Z01.20 [place] [address] [address] Oct, Vaginal dryness N89.8 [place] [address] [address] Oct, Pseudoseizures F44.5 [place] [address] [address] Oct, Generalized anxiety disorder F41.1 [place] [address] [address] Sep, Abnormal uterine bleeding (AUB) N93.9 ; Vaginal dryness N89.8 and Screening breast examination Z12.39 [place] [address] [address] Sep, Dental examination Z01.20 [place] [address] [address] Sep, Generalized anxiety disorder F41.1 [place] [address] [address] 06 Sep, 2016 Unspecified ovarian cyst, right side N83 .201 ; Unspecified ovarian cyst, left side N83.202 ; Yeast infection of the vagina B37.3 ; Mitral valve prolapse I34.1 and Hypertension I10 [place] [address] [address] Aug, Generalized anxiety disorder F41.1 [place] [address] [address] Jul, [place] [address] [address] Jul, Generalized anxiety disorder F41.1 [place] [address] [address] Jun, Generalized anxiety disorder F41.1 [place] [address] [address] 28 May, 2016 Encounter for immunization Z23 [facility] [place] [address] [address] 17 May, 2016 Generalized anxiety disorder F41.1 and D epressive disorder, not elsewhere classified F32.9 [facility] [place] [address] [address] Apr, Hypertension I10 [facility] [place] [address] [address] Apr, Cervicalgia M54.[address] [facility] [address] [facility] [id number] [address] [address] Apr, Cervicalgia M54.2 [facility] [place] [address] [address] Mar, Generalized anxiety disorder F41.1 and D epressive disorder, not elsewhere classified F32.9 [facility] [address] [id number] Feb, Visit for dental examination Z01.20 [facility] [place] [address] [address] Feb, Pseudoseizures F44.5 ; Migraine without status migrainosus, not intractable, unspecified migraine type G43.909 and Essential hypertension I10 [facility] [address] [id number] Feb, Dental examination Z01.20 [facility] [place] [address] [address] Feb, Generalized anxiety disorder F41.1 and D epressive disorder, not elsewhere classified F32.9 [place] [address] [address] Jan, Tachycardia R00.0 [facility] [place] [address] [address] December, Eustachian tube dysfunction, bilateral H 69.83 [place] [address] [address] December, Generalized anxiety disorder F41.1 and D epressive disorder, not elsewhere classified F32.9 [place] [address] [address] Nov, [place] [address] [address] Nov, [place] [address] [address] Nov, Hypertension I10 ; Onychomycosis B35.1 ; [...] and Complex cyst of left ovary N83.29 [place] [address] [address] Nov, Sinusitis J32.9 [place] [address] [address] Oct, Complex cyst of left ovary N83.29 [place] [id number] [place] [address] Oct, Onychomycosis B35.1 [facility] [address] [facility] [place] [id number] 17 Oct, 2015 Dental examination Z01.[address] [address] 09 Oct, 2015 Well woman exam Z01.419 [...] [place] [address] [address] Oct, Generalized anxiety disorder F41.1 and D epressive disorder, not elsewhere classified F32.9 [place] [address] [address] Sep, Hypertension I10 and Onychomycosis B35.1 [place] [address] [address] Sep, Skin tags, multiple acquired L91.8 [place] [address] [address] Aug, [place] [address] [address] Aug, [place] [address] [address] Aug, [place] [address] [address] Aug, Generalized anxiety disorder F41.1 and D epressive disorder, not elsewhere classified F32.9 [place] [address] [address] Jul, Skin lesion L98.9 [place] [address] [address] Jun, Generalized anxiety disorder F41.1 and D epressive disorder, not elsewhere classified F32.9 [place] [address] [address] Jun, [place] [address] [address] Jun, Generalized anxiety disorder F41.1 [place] [address] [address] May, Encounter for immunization Z23 and Right shoulder pain M25.511 [facility] [place] [address] [address] Apr, [facility] [place] [address] [address] 14 Apr, 2015 Generalized anxiety disorder 300.02 and Depressive disorder, not elsewhere classified 311 [facility] [address] [id number] Mar, Dental examination V72.2 [facility] [place] [address] [address] Mar, Generalized anxiety disorder 300.02 and Depressive disorder, not elsewhere classified 311 [facility] [place] [address] [address] Mar, Depression, major, recurrent, 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.35 and 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 [facility] [place] [address] [address] Feb, Generalized anxiety disorder 300.02 and Depressive disorder, not elsewhere classified 311 [facility] [address] [id number] Feb, Dental examination V72.2 [facility] [place] [address] [address] Jan, Generalized anxiety disorder 300.02 and Depressive disorder, not elsewhere classified 311 [facility] [place] [address] [address] Jan, [facility] [place] [address] [address] December, Generalized anxiety disorder 300.02 and Depressive disorder, not elsewhere classified 311 [facility] [place] [address] [address] December, Major depressive disorder, recurrent, un specified 296.30 and Panic disorder with agoraphobia 300.21 [facility] [place] [address] [address] 14 Nov, 2014 [facility] [address] [facility] [id number] [facility] [place] [address] 13 Nov, 2014 [facility] [address] [facility] [id number] [place] [address] Oct, [facility] [address] [id number] [place] [address] Oct, [facility] [address] [id number] [place] [address] Oct, [facility] [address] [facility] [id number] [facility] [place] [address] Oct, [facility] [address] [id number] [place] [address] Sep, [facility] [address] [id number] [place] [address] Sep, [facility] [address] [id number] [place] [address] Sep, 2014 [facility] [address] [id number] [place] [address] Sep, [facility] [address] [id number] [place] [address] Sep, 2014 [facility] [address] [id number] [place] [address] Sep, [facility] [address] [id number] [place] [address] Sep, 2014 [facility] [address] [facility] [id number] [place] [address] Sep, [facility] [address] [id number] [place] [address] Sep, 2014 [facility] [address] [id number] [place] [address] Sep, [facility] [address] [id number] [place] [address] Aug, [facility] [address] [id number] [place] [address] Aug, [facility] [address] [id number] [place] [address] Jul, [facility] [address] [id number] [place] [address] Jul, [facility] [address] [id number] [place] [address] Jul, [facility] [address] [id number] [place] [address] Jul, [facility] [address] [id number] [place] [address] Jul, [facility] [address] [id number] [place] [address] Jul, [facility] [address] [id number] [place] [address] Jul, [facility] [address] [id number] [place] [address] Jul, [facility] [address] [id number] [place] [address] Jul, [facility] [address] [id number] [place] [address] Jul, [facility] [address] [id number] [place] [address] Jul, [facility] [address] [id number] [place] [address] Jul, [facility] [address] [id number] [place] [address] Jun, [facility] [address] [id number] [place] [address] Jun, [facility] [address] [id number] [place] [address] May, [facility] [address] [id number] [place] [address] May, [facility] [address] [facility] [id number] [place] [address] May, [facility] [address] [id number] [place] [address] May, [facility] [address] [id number] [place] [address] May, [facility] [address] [id number] [place] [address] May, [facility] [address] [id number] [place] [address] May, [facility] [address] [id number] [place] [address] May, [facility] [address] [id number] [place] [address] May, [facility] [address] [id number] [place] [address] May, [facility] [address] [id number] [place] [address] May, [facility] [address] [id number] [place] [address] May, [facility] [address] [id number] [place] [address] Apr, 2013 [facility] [address] [id number] [place] [address] 30 Apr, 2013 [facility] [address] [id number] [place] [address] 29 Apr, 2013 [facility] [address] [id number] [place] [address] 29 Apr, 2013 [facility] [address] [id number] [place] [address] Apr, 2013 [facility] [address] [id number] [place] [address] Apr, 2013 [facility] [address] [facility] [id number] [facility] [place] [address] Feb, [facility] [address] [facility] [id number] [place] [address] Feb, [facility] [address] [facility] [id number] [place] [address] Feb, [facility] [address] [id number] [place] [address] Feb, [facility] [address] [facility] [id number] [place] [address] Feb, [facility] [address] [facility] [id number] [place] [address] Feb, [facility] [address] [id number] [place] [address] Jan, [facility] [address] [id number] [place] [address] Jan, [facility] [address] [id number] [place] [address] Jan, [facility] [address] [id number] [place] [address] Jan, [facility] [address] [id number] [place] [address] Jan, [facility] [address] [id number] [place] [address] Jan, [facility] [address] [id number] [place] [address] Jan, [facility] [address] [facility] [id number] [place] [address] Jan, [facility] [address] [id number] [place] [address] December, [facility] [address] [id number] [place] [address] December, [facility] [address] [id number] [place] [address] December, [facility] [address] [id number] [place] [address] December, [facility] [address] [facility] [id number] [place] [address] Nov, [facility] [address] [id number] [place] [address] Nov, [facility] [address] [id number] [place] [address] Nov, [facility] [address] [facility] [id number] [place] [address] Nov, [facility] [address] [id number] [place] [address] Nov, [facility] [address] [id number] [place] [address] Nov, [facility] [address] [id number] [place] [address] Nov, [facility] [address] [id number] [place] [address] Nov, [facility] [address] [id number] [place] [address] Oct, [facility] [address] [id number] [place] [address] Oct, [facility] [address] [id number] [place] [address] Sep, [facility] [address] [id number] [place] [address] Sep, [facility] [address] [id number] [place] [id number] Sep, [facility] [address] [id number] [place] [address] Sep, [facility] [address] [id number] [place] [address] Sep, [facility] [address] [id number] [place] [address] 14 Sep, 2013 [facility] [address] [id number] [place] [address] Aug, [facility] [address] [id number] [place] [address] Aug, [facility] [id number] [place] [address] Aug, [facility] [address] [id number] [place] [address] Aug, [facility] [address] [id number] [place] [address] Jul, [facility] [address] [id number] [place] [address] Jul, [facility] [id number] [place] [address] Jul, [facility] [id number] [place] [address] Jul, [facility] [address] [id number] [place] [address] Jun, [facility] [address] [id number] [place] [address] Jun, [facility] [address] [id number] [place] [address] 24 May, 2013 [facility] [address] [id number] [place] [address] 24 May, 2013 [facility] [address] [id number] [place] [address] 11 May, 2013 [facility] [id number] [place] [address] 11 May, 2013 [facility] [address] [id number] [place] [address] 10 May, 2013 [facility] [address] [id number] [place] [address] 17 Apr, 2013 [facility] [address] [id number] [place] [address] Apr, [facility] [address] [id number] [place] [address] Mar, [facility] [address] [id number] [place] [address] Mar, [facility] [address] [id number] [place] [address] Mar, [facility] [address] [facility] [id number] [place] [address] Mar, [facility] [address] [id number] [place] [address] Feb, [facility] [address] [id number] [place] [address] Feb, [facility] [address] [id number] [place] [address] Feb, [facility] [address] [id number] [place] [address] Feb, [facility] [address] [id number] [place] [address] Feb, [facility] [address] [id number] [place] [address] Jan, [facility] [address] [id number] [place] [address] Jan, [facility] [address] [id number] [place] [address] Jan, [facility] [address] [id number] [place] [address] Jan, [facility] [address] [id number] [place] [address] Jan, [facility] [address] [id number] [place] [address] December, [facility] [address] [id number] [place] [address] December[facility] [address] [id number] [place] [address] Nov, [facility] [address] [id number] [place] [address] Nov, [facility] [address] [id number] [place] [address] Oct, [facility] [address] [id number] [place] [address] Oct, [facility] [address] [id number] [place] [address] 05 Oct, 2012 [facility] [address] [id number] [place] [address] 14 Sep, 2012 [facility] [address] [id number] [place] [address] Aug, [facility] [address] [id number] [place] [address] Aug, [facility] [address] [id number] [place] [address] Aug, [facility] [address] [id number] [place] [address] Aug, [facility] [address] [id number] [place] [address] Jul, [facility] [address] [id number] [place] [address] Jul, [facility] [address] [id number] [place] [address] Jul, [facility] [address] [id number] [place] [address] Jul, [facility] [address] [id number] [place] [address] Jul, [facility] [address] [id number] [place] [address] Jul, [facility] [address] [id number] [place] [address] Jul, [facility] [address] [id number] [place] [address] Jul, [facility] [address] [id number] [place] [address] Jun, [facility] [id number] [place] [address] Jun, [facility] [id number] [place] [address] Jun, [facility] [address] [id number] [place] [address] Jun, [facility] [address] [id number] [place] [address] Jun, [facility] [address] [id number] [place] [address] Jun, [facility] [address] [id number] [place] [address] May, [facility] [address] [id number] [place] [address] May, [facility] [id number] [place] [address] May, [facility] [id number] [place] [address] May, [facility] [address] [id number] [place] [address] Apr, [facility] [address] [id number] [place] [address] Apr, [facility] [id number] [place] [address] Mar, [facility] [address] [id number] [place] [address] Jan, [facility] [id number] [place] [address] Jan, [facility] [address] [id number] [place] [address] 16 Jan, 2012 [facility] [address] [id number] [place] [address] 15 Jan, 2012 [facility] [address] [id number] [place] [address] 14 Jan, 2012 [facility] [address] [id number] [place] [address] 14 Jan, 2012 [facility] [address] [id number] [place] [address] 07 Jan, 2012 [facility] [address] [id number] [place] [address] December, [facility] [address] [id number] [place] [address] December, [facility] [address] [id number] [place] [address] December, [facility] [address] [id number] [place] [address] December, [facility] [address] [id number] [place] [address] Nov, [facility] [address] [id number] [place] [address] Nov, [facility] [address] [id number] [place] [address] Oct, [facility] [address] [id number] [place] [address] Oct, [facility] [address] [id number] [place] [address] Oct, [facility] [address] [id number] [place] [address] Sep, [facility] [address] [id number] [place] [address] Sep, [facility] [address] [id number] [place] [address] Sep, [facility] [address] [id number] [place] [address] Aug, [facility] [address] [id number] [place] [address] Aug, [facility] [address] [id number] [place] [address] Aug, [facility] [address] [id number] [place] [address] Aug, [facility] [address] [id number] [place] [address] Aug, [facility] [address] [id number] [place] [address] Aug, [facility] [address] [id number] [place] [address] Aug, [facility] [address] [id number] [place] [address] Jul, [facility] [address] [id number] [place] [address] Jul, [facility] [address] [id number] [place] [address] 30 Jun, 2011 [facility] [address] [id number] [place] [address] 28 Jun, 2011 [facility] [address] [id number] [place] [address] 17 Jun, 2011 [facility] [address] [id number] [place] [address] 15 Jun, 2011 [facility] [address] [id number] [place] [address] 14 Jun, 2011 [facility] [address] [id number] [place] [address] 14 Jun, 2011 [facility] [address] [id number] [place] [address] 07 Jun, 2011 [facility] [address] [id number] [place] [address] Jun, [facility] [address] [id number] [place] [address] Jun, [facility] [address] [id number] [place] [address] Jun, [facility] [address] [id number] [place] [address] May, [facility] [address] [id number] [place] [address] May, [facility] [address] [id number] [place] [address] May, [facility] [address] [id number] [place] [address] May, [facility] [address] [id number] [place] [address] May, [facility] [address] [id number] [place] [address] May, [facility] [address] [id number] [place] [address] Feb, [facility] [address] [id number] [place] [address] December, [facility] [address] [id number] [place] [address] Jul, [facility] [address] [id number] [place] [address] Jul, [facility] [address] [id number] [place] [address] Jul, [facility] [address] [id number] [place] [address] Jul, [facility] [address] [id number] [place] [address] Jun, [facility] [address] [id number] [place] [address] Jul, [facility] [place] [address] [id number] [place] [address] Jul, [facility] [place] [id number] [place] [address] Jul, [facility] [place] [address] [id number] [place] [address] Jul, [facility] [place] [id number] [place] [address] Jul, [facility] [place] [address] [id number] [place] [address] Jul, [facility] [place] [address] [address] Jan, [facility] [place] [address] [id number] [place] [address] Sep, [facility] [place] [id number] [place] [address] Sep, IMMUNIZATIONS No Known Immunizations SOCIAL HISTORY Never Assessed REASON FOR VISIT PLAN OF CARE VITAL SIGNS MEDICATIONS Unknown Medications RESULTS No Results PROCEDURES Procedure Date Ordered Result Body Site PSYTX PT&/FAMILY 45 MINUTES January 18, 2014 INSTRUCTIONS MEDICATIONS ADMINISTERED No Known [...]
--- OUTSIDE RECORDS SUMMARY | 2020-01-27 10:11 | XMS REPORT ---
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 Name Role Phone ROBERT Anthony Unavailable PROBLEMS Type Condition ICD9-CM Code [id number] Code Onset Dates Condition S tatus SNOMED Code Problem Hypertension I10 Active 6937882 3 Problem Generalized anxiety disorder F41.1 A ctive 885703489 Problem History of colon polyps Z86.010 Active 397426569 Problem History of diverticulitis Z87.19 Acti ve [id number] Problem Family history of diabetes mellitus Z83.3 Active 508026834 Problem Excessive and frequent menstruation with irregular cycle N92.1 Active 566049917 Problem Hot flashes N95.1 Active 94284349 8 Problem Gastroesophageal reflux disease with esophagitis K 21.0 Active 703269483 Problem History of ovarian cyst Z87.42 Active 36149095 Problem Diverticulitis K57.92 Active 62651 6006 Problem Dense breast tissue R92.2 Active 509650022 Problem Perimenopausal N95.1 Active 94909 0819784379 Problem Mitral valve prolapse I34.1 Active 881707252 Problem Abnormal uterine bleeding (AUB) N93.9 Active 98689388230166 Problem Tachycardia R00.0 Active 7273384 ALLERGIES No Information ENCOUNTERS Encounter Location Date Diagnosis [facility] [address] [facility] [id number] [address] [place] [phone] Jun, [facility] [address] [facility] [id number] [address] [place] [phone] May, [facility] [address] [facility] [id number] [address] [place] [phone] Apr, Generalized anxiety disorder F41.1 and Bereavement Z63.4 [facility] [address] [facility] [id number] [address] [place] [address] Apr, Generalized anxiety disorder F41.1 [facility] [address] [id number] [address] [address] Mar, Caries K02.9 ; Dental examin ation Z01.20 ; Periodontitis K05.30 and Oral health maintenance status requiring routine preventive dental care K08.9 [facility] [address] [facility] [id number] [address] [place] [address] Mar, Generalized anxiety disorder F41.1 [facility] [address] [facility] [id number] [address] [place] [phone] Mar, Gastrointestinal hemorrhage associated with gastroduodenitis K29.91 [facility] [address] [facility] [id number] [address] [place] [phone] Mar, Generalized anxiety disorder F41.1 and Bereavement Z63.4 [facility] [address] [facility] [id number] [address] [place] [phone] Mar, [facility] [address] [facility] [id number] [address] [place] [phone] Mar, [facility] [address] [facility] [id number] [address] [place] [phone] Mar, [facility] [address] [facility] [id number] [address] [place] [phone] Mar, Tachycardia R00.0 and Essent ial hypertension I10 [facility] [address] [facility] [id number] [address] [place] [phone] Feb, Generalized anxiety disorder F41.1 [facility] [address] [facility] [id number] [address] [place] [phone] Feb, Generalized anxiety disorder F41.1 and Bereavement Z63.4 [facility] [address] [facility] [id number] [address] [place] [phone] Feb, Generalized anxiety disorder F41.1 [facility] [address] [facility] [id number] [address] [place] [phone] Feb, Generalized anxiety disorder F41.1 and Bereavement Z63.4 [facility] [address] [facility] [id number] [address] [place] [phone] Jan, [facility] [address] [facility] [id number] [address] [place] [phone] Jan, Breast cancer screening by trenton crenshaw Z12.31 [facility] [address] [place] [id number] [address] [place] [id number] 13 Jan, 2019 Generalized anxiety disorder F41.1 and Bereavement Z63.4 [facility] [address] [facility] [id number] [address] [place] [phone] Jan, [facility] [address] [place] [id number] [address] [place] [phone] December, Generalized anxiety disorder F41.1 and Bereavement Z63.4 [facility] [address] [place] [id number] [address] [place] [phone] December, Diverticulitis K57.92 ; Dysu nick R30.0 ; Other constipation K59.09 and Lower abdominal pain R10.30 [facility] [address] [facility] [id number] [address] [place] [phone] Nov, Diverticulitis K57.92 [facility] [address] [place] [id number] [address] [place] [phone] Nov, Generalized anxiety disorder F41.1 and Bereavement Z63.4 [facility] [address] [facility] [id number] [address] [place] [phone] Nov, Generalized anxiety disorder F41.1 and Bereavement Z63.4 [facility] [address] [facility] [id number] [address] [place] [phone] Nov, Diverticulitis K57.92 [facility] [address] [facility] [id number] [address] [place] [address] Oct, Diverticulitis K57.92 [facility] [address] [facility] [id number] [address] [place] [address] Oct, Diverticulitis K57.92 [facility] [address] [facility] [id number] [address] [place] [phone] Oct, Generalized anxiety disorder F41.1 [facility] [address] [facility] [id number] [address] [place] [phone] Oct, Right lower quadrant abdomin al pain R10.31 and Diverticulitis K57.92 [facility] [address] [facility] [id number] [address] [place] [phone] Sep, Generalized anxiety disorder F41.1 and Bereavement Z63.4 [facility] [address] [facility] [id number] [address] [place] [phone] Aug, [facility] [address] [facility] [id number] [address] [place] [address] Aug, Generalized anxiety disorder F41.1 and Bereavement Z63.4 [facility] [address] [place] [id number] [address] Aug, Caries K02.9 [facility] [address] [facility] [id number] [address] [place] [phone] Jul, Generalized anxiety disorder F41.1 and Bereavement Z63.4 [facility] [address] [facility] [id number] [address] [place] [phone] Jul, Other acute gastritis withou t hemorrhage K29.00 ; Generalized anxiety disorder F41.1 ; Tachycardia R00.0 and Essential hypertension I10 [facility] [address] [facility] [id number] [address] [place] [phone] Jul, Generalized anxiety disorder F41.1 and Bereavement Z63.4 [facility] [address] [facility] [id number] [address] [place] [phone] Jun, Generalized anxiety disorder F41.1 and Bereavement Z63.4 [facility] [address] [facility] [id number] [address] [place] [phone] Jun, Generalized anxiety disorder F41.1 and Bereavement Z63.4 [facility] [address] [id number] [address] [address] Jun, Dental examination Z01.20 [facility] [address] [facility] [id number] [address] [place] [phone] May, Generalized anxiety disorder F41.1 and Bereavement Z63.4 [facility] [address] [facility] [id number] [address] [place] [phone] May, Encounter for immunization Z 23 [facility] [address] [facility] [id number] [address] [place] [phone] May, Generalized anxiety disorder F41.1 and Bereavement Z63.4 [facility] [address] [facility] [id number] [address] [place] [phone] May, [facility] [address] [facility] [id number] [address] [place] [phone] 24 Apr, 2018 Generalized anxiety disorder F41.1 and Bereavement Z63.4 [facility] [address] [facility] [id number] [address] [place] [phone] 17 Apr, 2018 [facility] [address] [facility] [id number] [address] [place] [phone] 13 Apr, 2018 Diverticulitis K57.92 [facility] [address] [facility] [id number] [address] [place] [phone] 10 Apr, 2018 Generalized anxiety disorder F41.1 and Bereavement Z63.4 [facility] [address] [facility] [id number] [address] [place] [phone] Mar, [facility] [address] [facility] [id number] [address] [place] [address] Mar, Diverticulitis K57.92 [facility] [address] [facility] [id number] [address] [place] [phone] Mar, Generalized anxiety disorder F41.1 and Bereavement Z63.4 [facility] [address] [facility] [id number] [address] [place] [address] Mar, Hypertension I10 [facility] [address] [facility] [id number] [address] [place] [phone] Mar, Generalized anxiety disorder F41.1 and Bereavement Z63.4 [facility] [address] [facility] [id number] [address] [place] [phone] Feb, Generalized anxiety disorder F41.1 and Bereavement Z63.4 [facility] [address] [facility] [id number] [address] [place] [phone] Feb, [facility] [address] [facility] [id number] [address] [place] [phone] Feb, Generalized anxiety disorder F41.1 and Bereavement Z63.4 [facility] [address] [facility] [id number] [address] [place] [phone] Feb, Generalized anxiety disorder F41.1 and Bereavement Z63.4 [facility] [address] [facility] [id number] [address] [place] [phone] Jan, Hypertension I10 and Acute n on-recurrent maxillary sinusitis J01.00 [facility] [address] [facility] [id number] [address] [place] [phone] December, [facility] [address] [facility] [id number] [address] [place] [phone] December, Hypertension I10 [facility] [address] [facility] [id number] [address] [place] [phone] December, Generalized anxiety disorder F41.1 [facility] [address] [id number] [address] [address] Oct, Encounter for dental examina tion Z01.20 [facility] [address] [id number] [address] [address] 06 Oct, 2017 Encounter for dental examina tion Z01.20 [facility] [address] [id number] [address] [address] 02 Oct, 2017 Dental examination Z01.20 [facility] [address] [id number] [address] [place] [address] Oct, Generalized anxiety disorder F41.1 [facility] [address] [id number] [address] [place] [address] Aug, Dental examination Z01.20 [facility] [address] [id number] [address] [place] [phone] Aug, Generalized anxiety disorder F41.1 [facility] [address] [id number] [address] [place] [phone] Aug, [facility] [address] [id number] [address] [place] [phone] Aug, Encounter for dental examina tion Z01.20 [facility] [address] [id number] [address] [place] [phone] Aug, Subacute maxillary sinusitis J01.00 [facility] [address] [id number] [address] [place] [address] Jul, Dental examination Z01.20 [facility] [address] [id number] [address] [place] [phone] Jul, Generalized anxiety disorder F41.1 [facility] [address] [facility] [id number] [address] [place] [phone] 11 Jul, 2017 Diverticulitis K57.92 [facility] [address] [id number] [address] [place] [phone] 28 Jun, 2017 Encounter for immunization Z 23 [facility] [address] [id number] [address] [place] [address] Jun, Dental examination Z01.20 [facility] [address] [id number] [address] [place] [phone] 14 Jun, 2017 Generalized anxiety disorder F41.1 [facility] [address] [id number] [address] [place] [phone] 07 Jun, 2017 Dental examination Z01.20 [facility] [address] [id number] [address] [place] [phone] May, [facility] [address] [id number] [address] [place] [address] [id number] May, Dental examination Z01.20 [facility] [address] [id number] [address] [place] [address] [id number] May, Dental examination Z01.20 [facility] [address] [id number] [address] [place] [phone] May, Dental examination Z01.20 [facility] [address] [id number] [address] [place] [phone] May, [facility] [address] [id number] [address] [place] [phone] May, Generalized anxiety disorder F41.1 [facility] [address] [id number] [address] [place] [phone] 05 May, 2017 Localized edema R60.0 ; Yeas t vaginitis B37.3 and Gastroesophageal reflux disease with esophagitis K21.0 [facility] [address] [id number] [address] [place] [address] [id number] Apr, Dental examination Z01.20 [facility] [address] [id number] [address] [place] [address] Apr, Dental examination Z01.20 [facility] [address] [id number] [address] [place] [phone] 05 Apr, 2017 Dental examination Z01.20 [facility] [address] [id number] [address] [place] [phone] Mar, Dyspepsia R10.13 [facility] [address] [id number] [address] [place] [phone] Mar, Generalized anxiety disorder F41.1 [facility] [address] [id number] [address] [address] Mar, Encounter for dental examina tion Z01.20 [facility] [address] [id number] [address] [place] [address] [id number] Mar, [facility] [address] [id number] [address] [place] [address] [id number] Mar, Dental examination Z01.20 [facility] [address] [id number] [address] [place] [phone] Feb, Hypertension I10 and Tachyca rdia R00.0 [facility] [address] [id number] [address] [address] Feb, [facility] [address] [id number] [address] [place] [phone] Feb, Generalized anxiety disorder F41.1 [facility] [address] [id number] [address] [place] [address] [id number] Feb, Dental examination Z01.20 [facility] [address] [id number] [address] [place] [phone] Jan, Generalized anxiety disorder F41.1 [facility] [address] [id number] [address] [place] [phone] December, Generalized anxiety disorder F41.1 [facility] [address] [id number] [address] [place] [address] [id number] December, Encounter for dental examina tion Z01.20 [facility] [address] [id number] [address] [place] [phone] Nov, [facility] [id number] [place] [phone] Nov, [facility] [address] [address] Nov, Generalized anxiety disorder F41.1 [facility] [address] [place] [id number] [address] [place] [phone] Oct, [facility] [address] [facility] [id number] [address] [place] [address] [id number] Oct, Dental examination Z01.20 [place] [address] [place] [id number] [address] [place] [phone] Oct, Vaginal dryness N89.8 [place] [address] [place] [id number] [address] [place] [address] Oct, Pseudoseizures F44.5 [place] [address] [address] Oct, Generalized anxiety disorder F41.1 [facility] [id number] [place] [phone] 28 Sep, 2016 Abnormal uterine bleeding (A UB) N93.9 ; Vaginal dryness N89.8 and Screening breast examination Z12.39 [place] [address] [place] [id number] [address] [place] [address] Sep, Dental examination Z01.20 [place] [address] [place] [id number] [address] [place] [address] Sep, Generalized anxiety disorder F41.1 [facility] [address] [place] [id number] [address] [place] [phone] 06 Sep, 2016 Unspecified ovarian cyst, ri ght side N83.201 ; Unspecified ovarian cyst, left side N83.202 ; Yeast infection of the vagina B37.3 ; Mitral valve prolapse I34.1 and Hypertension I10 [facility] [address] [place] [id number] [address] [place] [phone] Aug, Generalized anxiety disorder F41.1 [facility] [address] [id number] [address] [place] [phone] 28 Jul, 2016 [facility] [address] [facility] [id number] [address] [place] [phone] Jul, Generalized anxiety disorder F41.1 [facility] [address] [facility] [id number] [address] [place] [phone] Jun, Generalized anxiety disorder F41.1 [facility] [address] [facility] [id number] [address] [place] [phone] 28 May, 2016 Encounter for immunization Z 23 [facility] [address] [facility] [id number] [address] [place] [phone] 17 May, 2016 Generalized anxiety disorder F41.1 and Depressive disorder, not elsewhere classified F32.9 [facility] [address] [facility] [id number] [address] [place] [phone] 28 Apr, 2016 Hypertension I10 [facility] [address] [facility] [id number] [address] [place] [phone] 22 Apr, 2016 Cervicalgia M54.2 [facility] [address] [facility] [id number] [address] [place] [phone] Apr, Cervicalgia M54.2 [facility] [address] [facility] [id number] [address] [place] [phone] 09 Mar, 2016 Generalized anxiety disorder F41.1 and Depressive disorder, not elsewhere classified F32.9 [facility] [address] [id number] [address] [place] [address] [id number] 14 Feb, 2016 Visit for dental examination Z01.20 [facility] [address] [facility] [id number] [address] [place] [phone] 11 Feb, 2016 Pseudoseizures F44.5 ; Migra ine without status migrainosus, not intractable, unspecified migraine type G43.909 and Essential hypertension I10 [facility] [address] [id number] [address] [place] [id number] Feb, Dental examination Z01.20 [place] [address] [facility] [id number] [address] [place] [phone] Feb, Generalized anxiety disorder F41.1 and Depressive disorder, not elsewhere classified F32.9 [place] [address] [id number] [address] [place] [phone] Jan, Tachycardia R00.0 [place] [address] [id number] [address] [place] [phone] December, Eustachian tube dysfunction, bilateral H69.83 [place] [address] [facility] [id number] [address] [place] [phone] December, Generalized anxiety disorder F41.1 and Depressive disorder, not elsewhere classified F32.9 [place] [address] [facility] [id number] [address] [place] [phone] Nov, [place] [address] [facility] [id number] [address] [place] [phone] Nov, [place] [address] [facility] [id number] [address] [place] [phone] Nov, Hypertension I10 ; Onychomyc osis B35.1 [...] cyst of left ovary N83.29 [place] [address] [facility] [id number] [address] [place] [phone] 14 Nov, 2015 Sinusitis J32.9 [place] [address] [facility] [id number] [address] [place] [phone] Oct, Complex cyst of left ovary N 83.29 [place] [address] [facility] [id number] [address] [place] [phone] Oct, Onychomycosis B35.1 [facility] [address] [facility] [id number] [address] [place] [address] [id number] 17 Oct, 2015 Dental examination Z01.20 [facility] [address] [place] [id number] [address] [place] [phone] 09 Oct, 2015 Well woman exam Z01.419 [...] History of colon polyps Z86.010 [place] [id number] [place] [phone] Oct, Generalized anxiety disorder F41.1 and Depressive disorder, not elsewhere classified F32.9 [place] [address] [address] [place] [id number] [place] [phone] Sep, Hypertension I10 and Onychom ycosis B35.1 [place] [address] [address] [place] [id number] [address] [place] [phone] Sep, Skin tags, multiple acquired L91.8 [place] [id number] [facility] [id number] [address] [place] [phone] Aug, [place] [address] [address] [facility] [id number] [address] [place] [phone] Aug, [place] [address] [address] [place] [id number] [address] [place] [phone] Aug, [place] [address] [address] [place] [id number] [address] [place] [phone] Aug, Generalized anxiety disorder F41.1 and Depressive disorder, not elsewhere classified F32.9 [facility] [address] [id number] [address] [place] [phone] Jul, Skin lesion L98.9 [facility] [address] [id number] [address] [place] [phone] Jun, Generalized anxiety disorder F41.1 and Depressive disorder, not elsewhere classified F32.9 [facility] [address] [id number] [address] [place] [phone] Jun, [facility] [address] [id number] [address] [place] [phone] Jun, Generalized anxiety disorder F41.1 [facility] [address] [facility] [id number] [address] [place] [place] [id number] May, Encounter for immunization Z 23 and Right shoulder pain M25.511 [facility] [address] [id number] [address] [place] [phone] Apr, [facility] [address] [id number] [address] [place] [id number] 14 Apr, 2015 Generalized anxiety disorder 300.02 and Depressive disorder, not elsewhere classified 311 [facility] [address] [id number] [address] [place] [id number] Mar, Dental examination V72.2 [facility] [address] [id number] [address] [place] [id number] Mar, Generalized anxiety disorder 300.02 and Depressive disorder, not elsewhere classified 311 [facility] [address] [id number] [address] [place] [id number] Mar, Depression, major, recurrent , 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.35 and 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 [facility] [address] [id number] [address] [place] [phone] Feb, Generalized anxiety disorder 300.02 and Depressive disorder, not elsewhere classified 311 [facility] [address] [id number] [address] [place] [id number] 07 Feb, 2015 Dental examination V72.2 [facility] [address] [facility] [id number] [address] [place] [id number] 09 Jan, 2015 Generalized anxiety disorder 300.02 and Depressive disorder, not elsewhere classified 311 [facility] [address] [facility] [id number] [address] [place] [phone] Jan, [facility] [address] [facility] [id number] [address] [place] [phone] December, Generalized anxiety disorder 300.02 and Depressive disorder, not elsewhere classified 311 [facility] [address] [facility] [id number] [address] [place] [id number] December, Major depressive disorder, r ecurrent, unspecified 296.30 and Panic disorder with agoraphobia 300.21 [facility] [address] [facility] [id number] [address] [place] [id number] Nov, [facility] [address] [facility] [id number] [address] [place] [id number] Nov, [facility] [address] [facility] [id number] [address] [place] [id number] Oct, [facility] [address] [facility] [id number] [address] [place] [id number] Oct, [facility] [address] [facility] [id number] [address] [place] [phone] Oct, [facility] [address] [facility] [id number] [address] [place] [phone] Oct, [facility] [address] [facility] [id number] [address] [place] [id number] Sep, [facility] [address] [facility] [id number] [address] [place] [phone] Sep, [facility] [address] [facility] [id number] [address] [place] [phone] Sep, [facility] [address] [id number] [address] [place] [address], [place] [phone] Sep, 2014 [facility] [address] [id number] [address] [place] [address], [place] [address] Sep, 2014 [facility] [address] [id number] [address] [place] [address], [place] [address] Sep, 2014 [facility] [address] [id number] [address] [place] [address], [place] [address] Sep, 2014 [facility] [address] [id number] [address] [place] [address], [place] [address] Sep, 2014 [facility] [address] [id number] [address] [place] [address], [place] [address] Sep, 2014 [facility] [address] [id number] [address] [place] [address], [place] [address] Sep, 2014 [facility] [address] [id number] [address] [place] [address], [place] [address] Aug, [facility] [address] [id number] [address] [place] [address], [place] [address] Aug, [facility] [address] [id number] [address] [place] [address], [place] [address] Jul, [facility] [address] [id number] [address] [place] [address], [place] [address] Jul, [facility] [address] [id number] [address] [place] [address], [place] [id number] 18 Jul, 2014 [facility] [address] [id number] [address] [place] [address], [place] [address] 18 Jul, 2014 [facility] [address] [id number] [address] [place] [address], [place] [address] Jul, [facility] [address] [id number] [address] [place] [address], [place] [address] Jul, [facility] [address] [id number] [address] [address] Jul, [facility] [address] [id number] [address] [place] [address], [place] [address] Jul, [facility] [address] [id number] [address] [place] [address], [place] [address] Jul, [facility] [address] [id number] [address] [place] [address], [place] [address] Jul, [facility] [address] [id number] [address] [place] [address], [place] [address] Jul, [facility] [address] [id number] [address] [place] [address], [place] [address] Jul, [facility] [address] [id number] [address] [place] [address], [place] [address] Jun, [facility] [address] [id number] [address] [place] [address], [place] [address] Jun, [facility] [address] [id number] [address] [place] [address], [place] [address] May, [facility] [address] [id number] [address] [place] [address], [place] [address] May, [facility] [address] [id number] [address] [place] [address], [place] [address] May, [facility] [address] [id number] [address] [place] [phone] May, [facility] [address] [id number] [address] [place] [id number] May, [facility] [address] [id number] [address] [place] [address], [place] [address] May, [facility] [address] [id number] [address] [place] [address], [place] [address] May, [facility] [address] [id number] [address] [place] [id number] May, [facility] [address] [id number] [address] [place] [address], [place] [address] May, [facility] [address] [id number] [address] [place] [address], [place] [address] May, [facility] [address] [id number] [address] [place] [address], [place] [address] May, [facility] [address] [id number] [address] [place] [address], [place] [address] May, [facility] [address] [id number] [address] [place] [address], [place] [address] Apr, [facility] [address] [id number] [address] [place] [address], [place] [address] Apr, [facility] [address] [id number] [address] [place] [address], [place] [address] Apr, [facility] [address] [id number] [address] [place] [address], [place] [address] Apr, [facility] [address] [id number] [address] [place] [address], [place] [address] Apr, [facility] [address] [id number] [address] [place] [address], [place] [address] Apr, [facility] [address] [id number] [address] [place] [address], [place] [address] Feb, [facility] [address] [id number] [address] [place] [address], [place] [address] Feb, [facility] [address] [id number] [address] [place] [address], [place] [address] Feb, [facility] [address] [id number] [address] [place] [address], [place] [address] Feb, [facility] [address] [id number] [address] [place] [address], [place] [address] Feb, [facility] [address] [id number] [address] [place] [address], [place] [address] Feb, [facility] [address] [id number] [address] [place] [address], [place] [address] Jan, [facility] [address] [id number] [address] [place] [address], [place] [address] Jan, [facility] [address] [id number] [address] [place] [address], [place] [address] Jan, [facility] [address] [id number] [address] [place] [address], [place] [address] Jan, [facility] [address] [id number] [address] [place] [address], [place] [address] Jan, [facility] [address] [id number] [address] [place] [address], [place] [address] Jan, [facility] [address] [id number] [address] [place] [address], [place] [address] Jan, [facility] [address] [id number] [address] [place] [address], [place] [address] Jan, [facility] [address] [id number] [address] [place] [address], [place] [address] December, [facility] [address] [id number] [address] [place] [address], [place] [address] December, [facility] [address] [id number] [address] [place] [address], [place] [address] December, [facility] [address] [id number] [address] [place] [address], [place] [address] December, [facility] [address] [id number] [address] [place] [address], [place] [address] Nov, [facility] [address] [id number] [address] [place] [address], [place] [address] Nov, [facility] [address] [id number] [address] [place] [address], [place] [address] Nov, [facility] [address] [id number] [address] [place] [address], [place] [address] Nov, [facility] [address] [id number] [address] [place] [address], [place] [address] Nov, [facility] [address] [id number] [address] [place] [address], [place] [address] Nov, [facility] [address] [id number] [address] [place] [address], [place] [address] Nov, [facility] [address] [id number] [address] [place] [address], [place] [address] Nov, [facility] [address] [id number] [address] [place] [address], [place] [address] Oct, [facility] [address] [id number] [address] [place] [address], [place] [address] Oct, [facility] [address] [id number] [address] [place] [address], [place] [address] Sep, [facility] [address] [id number] [address] [place] [address], [place] [address] Sep, [facility] [address] [id number] [address] [place] [address] [id number] Sep, [facility] [address] [id number] [address] [place] [address], [place] [address] Sep, [facility] [address] [id number] [address] [place] [address], [place] [address] Sep, [facility] [address] [id number] [address] [place] [address], [place] [address] Sep, [facility] [address] [id number] [address] [place] [address], [place] [address] Aug, [facility] [address] [id number] [address] [place] [address], [place] [address] Aug, [facility] [address] [id number] [address] [place] [id number] Aug, [facility] [address] [id number] [address] [place] [address], [place] [address] Aug, [facility] [address] [id number] [address] [place] [address], [place] [address] Jul, [facility] [address] [id number] [address] [place] [address], [place] [address] Jul, [facility] [address] [id number] [address] [place] [address], [place] [address] Jul, [facility] [address] [id number] [address] [place] [address], [place] [address] Jul, [facility] [address] [id number] [address] [place] [address], [place] [address] Jun, [facility] [address] [id number] [address] [place] [address], [place] [address] Jun, [facility] [address] [id number] [address] [place] [address], [place] [address] May, [facility] [address] [id number] [address] [place] [address], [place] [address] May, [facility] [address] [id number] [address] [place] [address], [place] [address] May, [facility] [address] [id number] [address] [place] [address], [place] [address] May, [facility] [address] [id number] [address] [place] [address], [place] [address] May, [facility] [address] [id number] [address] [place] [address], [place] [address] 17 Apr, 2013 [facility] [address] [id number] [address] [place] [address], [place] [address] 10 Apr, 2013 [facility] [address] [id number] [address] [place] [address], [place] [address] 29 Mar, 2013 [facility] [address] [id number] [address] [place] [address], [place] [address] Mar, [facility] [address] [id number] [address] [place] [address], [place] [address] Mar, [facility] [address] [id number] [address] [place] [address], [place] [address] Mar, [facility] [address] [id number] [address] [place] [address], [place] [address] Feb, [facility] [address] [id number] [address] [place] [address], [place] [address] Feb, [facility] [address] [id number] [address] [place] [address], [place] [address] Feb, [facility] [address] [id number] [address] [place] [address], [place] [address] Feb, [facility] [address] [id number] [address] [place] [address], [place] [address] Feb, [facility] [address] [id number] [address] [place] [address], [place] [address] Jan, [facility] [address] [id number] [address] [place] [address], [place] [address] Jan, [facility] [address] [id number] [address] [place] [address], [place] [address] Jan, [facility] [address] [id number] [address] [place] [address], [place] [address] Jan, [facility] [address] [id number] [address] [place] [address], [place] [address] Jan, [facility] [address] [id number] [address] [place] [address], [place] [address] December, [facility] [address] [id number] [address] [place] [address], [place] [address] December, [facility] [address] [id number] [address] [place] [address], [place] [address] Nov, [facility] [address] [id number] [address] [place] [address], [place] [address] 02 Nov, 2012 [facility] [address] [id number] [address] [place] [address], [place] [address] 19 Oct, 2012 [facility] [address] [id number] [address] [place] [address], [place] [address] 13 Oct, 2012 [facility] [address] [id number] [address] [place] [address], [place] [address] 05 Oct, 2012 [facility] [address] [id number] [address] [place] [address], [place] [address] 14 Sep, 2012 [facility] [address] [id number] [address] [place] [address], [place] [address] 24 Aug, 2012 [facility] [address] [id number] [address] [place] [address], [place] [address] 16 Aug, 2012 [facility] [address] [id number] [address] [place] [address], [place] [address] 15 Aug, 2012 [facility] [address] [id number] [address] [place] [address], [place] [address] Aug, [facility] [address] [id number] [address] [place] [address], [place] [address] Jul, [facility] [address] [id number] [address] [place] [address], [place] [address] Jul, [facility] [address] [id number] [address] [place] [address], [place] [address] Jul, [facility] [address] [id number] [address] [place] [address], [place] [address] Jul, [facility] [address] [id number] [address] [place] [address], [place] [address] Jul, [facility] [address] [id number] [address] [place] [address], [place] [address] Jul, [facility] [address] [id number] [address] [place] [address], [place] [address] Jul, [facility] [address] [id number] [address] [place] [address], [place] [address] Jul, [facility] [address] [id number] [address] [place] [address], [place] [address] Jun, [facility] [address] [id number] [address] [place] [address], [place] [address] Jun, [facility] [address] [id number] [address] [place] [address], [place] [address] Jun, [facility] [address] [id number] [address] [place] [address], [place] [address] Jun, [facility] [address] [id number] [address] [place] [address], [place] [address] Jun, [facility] [address] [id number] [address] [place] [address], [place] [address] Jun, [facility] [address] [id number] [address] [place] [address], [place] [address] May, [facility] [address] [id number] [address] [place] [address], [place] [address] May, [facility] [address] [id number] [address] [place] [address], [place] [address] May, [facility] [address] [id number] [address] [place] [address], [place] [address] May, [facility] [address] [id number] [address] [place] [address], [place] [address] Apr, [facility] [address] [id number] [address] [place] [address], [place] [address] Apr, [facility] [address] [id number] [address] [place] [address], [place] [id number] Mar, [facility] [address] [id number] [address] [place] [address], [place] [id number] Jan, [facility] [address] [id number] [address] [place] [address] [place] [id number] 20 Jan, 2012 [facility] [address] [id number] [address] [place] [address], [place] [id number] 16 Jan, 2012 [facility] [address] [id number] [address] [place] [address], [place] [id number] 15 Jan, 2012 [facility] [address] [id number] [address] [place] [address], [place] [id number] 14 Jan, 2012 [facility] [address] [id number] [address] [place] [address], [place] [id number] 14 Jan, 2012 [facility] [address] [id number] [address] [place] [address], [place] [id number] 07 Jan, 2012 [facility] [address] [id number] [address] [place] [address], [place] [id number] December, [facility] [address] [id number] [address] [place] [address], [place] [id number] December, [facility] [address] [id number] [address] [place] [address], [place] [id number] December, [facility] [address] [id number] [address] [place] [address], [place] [id number] December, [facility] [address] [id number] [address] [place] [address], [place] [id number] Nov, [facility] [address] [id number] [address] [place] [address], [place] [id number] 05 Nov, 2011 [facility] [address] [id number] [address] [place] [address], [place] [id number] 29 Oct, 2011 [facility] [address] [id number] [address] [place] [address], [place] [id number] 28 Oct, 2011 [facility] [address] [id number] [address] [place] [address], [place] [id number] 15 Oct, 2011 [facility] [address] [id number] [address] [place] [address], [place] [id number] Sep, [facility] [address] [id number] [address] [place] [address], [place] [id number] Sep, [facility] [address] [id number] [address] [place] [address], [place] [id number] Sep, [facility] [address] [id number] [address] [place] [address], [place] [id number] Aug, [facility] [address] [id number] [address] [place] [address], [place] [id number] Aug, [facility] [address] [id number] [address] [place] [address], [place] [id number] Aug, [facility] [address] [id number] [address] [place] [address], [place] [id number] Aug, [facility] [address] [id number] [address] [place] [address], [place] [id number] Aug, [facility] [address] [id number] [address] [place] [address], [place] [id number] Aug, [facility] [address] [id number] [address] [place] [address], [place] [id number] Aug, [facility] [address] [id number] [address] [place] [address], [place] [id number] Jul, [facility] [address] [id number] [address] [place] [address], [place] [id number] Jul, [facility] [address] [id number] [address] [place] [address], [place] [id number] Jun, [facility] [address] [id number] [address] [place] [address], [place] [id number] Jun, [facility] [address] [id number] [address] [place] [address], [place] [id number] 17 Jun, 2011 [facility] [address] [id number] [address] [place] [address], [place] [id number] 15 Jun, 2011 [facility] [address] [id number] [address] [place] [address], [place] [id number] 14 Jun, 2011 [facility] [address] [id number] [address] [place] [address], [place] [id number] 14 Jun, 2011 [facility] [address] [id number] [address] [place] [address], [place] [id number] 07 Jun, 2011 [facility] [address] [id number] [address] [place] [address], [place] [id number] Jun, [facility] [address] [id number] [address] [place] [id number] Jun, [facility] [address] [id number] [address] [place] [address], [place] [id number] Jun, [facility] [address] [id number] [address] [place] [address], [place] [id number] May, [facility] [address] [id number] [address] [place] [address], [place] [id number] May, [facility] [address] [id number] [address] [place] [address], [place] [id number] May, [facility] [address] [id number] [address] [place] [id number] 24 May, 2011 [facility] [facility] [address] [id number] [address] [place] [address], [place] [id number] May, [facility] [address] [id number] [address] [place] [id number] May, [facility] [address] [id number] [address] [place] [id number] Feb, [facility] [address] [id number] [address] [place] [address], [place] [id number] December, [facility] [address] [id number] [address] [place] [address], [place] [id number] Jul, [facility] [address] [id number] [address] [place] [address], [place] [id number] Jul, [facility] [address] [id number] [address] [place] [id number] Jul, [facility] [address] [id number] [address] [place] [phone] Jul, [facility] [address] [id number] [address] [place] [id number] Jun, [facility] [address] [id number] [address] [place] [id number] Jul, [facility] [address] [id number] [address] [place] [id number] Jul, [facility] [address] [id number] [address] [place] [id number] Jul, [facility] [address] [id number] [address] [place] [phone] Jul, [facility] [address] [id number] [address] [place] [phone] Jul, [facility] [address] [id number] [address] [place] [phone] Jul, [facility] [address] [id number] [address] [place] [phone] Jan, [facility] [address] [id number] [address] [place] [id number] Sep, [facility] [address] [id number] [address] [place] [id number] Sep, IMMUNIZATIONS No Known Immunizations SOCIAL HISTORY [...] and shaving on the bon e 03/2017 Hospitalization History surgery
--- OUTSIDE RECORDS SUMMARY | 2020-01-27 10:11 | XMS REPORT ---
Author Author Silvia MERCHANT Organization [facility] Address [address] [place] [address] Care Team Providers Care Iphone Developer Name Role Phone KVNG MERCHANT Unavailable PROBLEMS Type Condition ICD9-CM Code AAS67-LD Code Onset Dates Condition S tatus SNOMED Code Problem Hypertension I10 Active 9077149 3 Problem Generalized anxiety disorder F41.1 A ctive 298352852 Problem History of colon polyps Z86.010 Active 595997167 Problem History of diverticulitis Z87.19 Acti ve [id number] Problem Family history of diabetes mellitus Z83.3 Active 181918976 Problem Excessive and frequent menstruation with irregular cycle N92.1 Active 882416839 Problem Hot flashes N95.1 Active 97324115 8 Problem Gastroesophageal reflux disease with esophagitis K 21.0 Active 297060327 Problem History of ovarian cyst Z87.42 Active 07409608 Problem Diverticulitis K57.92 Active 57238 6006 Problem Dense breast tissue R92.2 Active 388210059 Problem Perimenopausal N95.1 Active 32926 7424694316 Problem Mitral valve prolapse I34.1 Active 300370291 Problem Abnormal uterine bleeding (AUB) N93.9 Active 63135464147518 Problem Tachycardia R00.0 Active 6716925 ALLERGIES No Information ENCOUNTERS Encounter Location Date Diagnosis [place] [id number] [place] [address] 27 Sep, 2019 [facility] [address] [address] Sep, [place] [address] [address] Aug, Generalized anxiety disorder F41.1 and B ereavement Z63.4 [facility] [address] [address] Aug, [facility] [id number] [place] [address] Aug, Viral upper respiratory tract infection J06.9 [facility] [id number] [place] [address] Jul, Generalized anxiety disorder F41.1 and B ereavement Z63.4 [facility] [id number] [place] [address] Jul, Acute non-recurrent frontal sinusitis J0 1.10 [facility] [id number] [place] [address] Jul, [facility] [address] [place] [address] Jul, Sore throat J02.9 and Uvulit is K12.2 [place] [id number] [place] [address] Jul, Generalized anxiety disorder F41.1 [facility] [address] [place] [id number] [place] [address] Jul, Caries K02.9 [facility] [id number] [place] [address] Jun, Generalized anxiety disorder F41.1 [facility] [id number] [place] [address] Jun, Generalized anxiety disorder F41.1 and B ereavement Z63.4 [facility] [id number] [place] [address] May, Generalized anxiety disorder F41.1 [facility] [address] [id number] [place] [address] May, Dysuria R30.0 [facility] [id number] [place] [address] May, Generalized anxiety disorder F41.1 and B ereavement Z63.4 [facility] [address] [address] May, [facility] [address] [address] Apr, Generalized anxiety disorder F41.1 and B ereavement Z63.4 [place] [id number] [place] [address] Apr, Generalized anxiety disorder F41.1 [facility] [address] [id number] [place] [address] Mar, Caries K02.9 ; Dental examin ation Z01.20 ; Periodontitis K05.30 and Oral health maintenance status requiring routine preventive dental care K08.9 [place] [address] [address] Mar, Generalized anxiety disorder F41.1 [place] [address] [address] Mar, Gastrointestinal hemorrhage associated w ith gastroduodenitis K29.91 [place] [address] [address] Mar, Generalized anxiety disorder F41.1 and B ereavement Z63.4 [place] [address] [address] Mar, [facility] [address] [address] Mar, [facility] [address] [address] Mar, [facility] [address] [address] Mar, Tachycardia R00.0 and Essential hyperten boone I10 [place] [address] [address] Feb, Generalized anxiety disorder F41.1 [facility] [address] [address] Feb, Generalized anxiety disorder F41.1 and B ereavement Z63.4 [facility] [address] [address] Feb, Generalized anxiety disorder F41.1 [facility] [address] [address] Feb, Generalized anxiety disorder F41.1 and B ereavement Z63.4 [facility] [address] [address] Jan, [place] [address] [address] Jan, Breast cancer screening by mammogram Z12 .31 [place] [address] [address] Jan, Generalized anxiety disorder F41.1 and B ereavement Z63.4 [place] [address] [address] Jan, [facility] [address] [address] December, Generalized anxiety disorder F41.1 and B ereavement Z63.4 [facility] [address] [address] December, Diverticulitis K57.92 ; Dysuria R30.0 ; Other constipation K59.09 and Lower abdominal pain R10.30 [facility] [address] [id number] [address] [address] Nov, Diverticulitis K57.92 [facility] [address] [address] Nov, Generalized anxiety disorder F41.1 and B ereavement Z63.4 [facility] [address] [address] Nov, Generalized anxiety disorder F41.1 and B ereavement Z63.4 [place] [address] [address] Nov, Diverticulitis K57.92 [facility] [address] [id number] [place] [address] Oct, Diverticulitis K57.92 [facility] [id number] [place] [address] Oct, Diverticulitis K57.92 [facility] [address] [address] Oct, Generalized anxiety disorder F41.1 [facility] [address] [id number] [address] [address] Oct, Right lower quadrant abdomin al pain R10.31 and Diverticulitis K57.92 [place] [address] [address] Sep, Generalized anxiety disorder F41.1 and B ereavement Z63.4 [place] [id number] [place] [address] Aug, [place] [address] [address] Aug, Generalized anxiety disorder F41.1 and B ereavement Z63.4 [facility] [address] [facility] [id number] [place] [address] Aug, Caries K02.9 [place] [address] [address] Jul, Generalized anxiety disorder F41.1 and B ereavement Z63.4 [place] [address] [address] Jul, Other acute gastritis without hemorrhage K29.00 ; Generalized anxiety disorder F41.1 ; Tachycardia R00.0 and Essential hypertension I10 [place] [address] [address] Jul, Generalized anxiety disorder F41.1 and B ereavement Z63.4 [place] [address] [address] Jun, Generalized anxiety disorder F41.1 and B ereavement Z63.4 [place] [address] [address] Jun, Generalized anxiety disorder F41.1 and B ereavement Z63.4 [facility] [address] [facility] [id number] [place] [address] Jun, Dental examination Z01.20 [facility] [address] [address] May, Generalized anxiety disorder F41.1 and B ereavement Z63.4 [place] [address] [address] May, Encounter for immunization Z23 [place] [address] [address] May, Generalized anxiety disorder F41.1 and B ereavement Z63.4 [facility] [address] [address] May, [facility] [address] [address] 24 Apr, 2018 Generalized anxiety disorder F41.1 and B ereavement Z63.4 [place] [address] [address] 17 Apr, 2018 [facility] [address] [address] 13 Apr, 2018 Diverticulitis K57.92 [facility] [address] [address] 10 Apr, 2018 Generalized anxiety disorder F41.1 and B ereavement Z63.4 [facility] [address] [id number] [address] [place] [address] Mar, [facility] [address] [id number] [place] [address] Mar, Diverticulitis K57.92 [facility] [address] [address] Mar, Generalized anxiety disorder F41.1 and B ereavement Z63.4 [facility] [address] [address] Mar, Hypertension I10 [facility] [address] [address] Mar, Generalized anxiety disorder F41.1 and B ereavement Z63.4 [facility] [address] [address] Feb, Generalized anxiety disorder F41.1 and B ereavement Z63.4 [place] [address] [address] Feb, [facility] [address] [address] Feb, Generalized anxiety disorder F41.1 and B ereavement Z63.4 [facility] [address] [address] Feb, Generalized anxiety disorder F41.1 and B ereavement Z63.4 [facility] [address] [address] Jan, Hypertension I10 and Acute non-recurrent maxillary sinusitis J01.00 [facility] [address] [address] December, [facility] [address] [address] December, Hypertension I10 [place] [address] [address] December, Generalized anxiety disorder F41.1 [facility] [address] [id number] [place] [address] Oct, Encounter for dental examina tion Z01.20 [facility] [address] [id number] [address] 06 Oct, 2017 Encounter for dental examina tion Z01.20 [facility] [address] [place] [address] 02 Oct, 2017 Dental examination Z01.20 [facility] [address] [address] Oct, Generalized anxiety disorder F41.1 [facility] [address] [address] Aug, Dental examination Z01.20 [facility] [address] [address] Aug, Generalized anxiety disorder F41.1 [facility] [address] [address] Aug, [facility] [address] [place] [address] Aug, Encounter for dental examina tion Z01.20 [facility] [address] [address] Aug, Subacute maxillary sinusitis J01.00 [facility] [id number] [place] [address] Jul, Dental examination Z01.20 [facility] [address] [address] Jul, Generalized anxiety disorder F41.1 [facility] [address] [address] Jul, Diverticulitis K57.92 [facility] [address] [address] Jun, Encounter for immunization Z23 [facility] [id number] [place] [address] Jun, Dental examination Z01.20 [facility] [address] [address] Jun, Generalized anxiety disorder F41.1 [facility] [address] [address] 07 Jun, 2017 Dental examination Z01.20 [facility] [address] [address] May, [facility] [address] [id number] May, Dental examination Z01.20 [facility] [address] [id number] May, Dental examination Z01.20 [facility] [address] [address] May, Dental examination Z01.20 [facility] [address] [address] May, [facility] [address] [address] May, Generalized anxiety disorder F41.1 [facility] [address] [address] May, Localized edema R60.0 ; Yeast vaginitis B37.3 and Gastroesophageal reflux disease with esophagitis K21.0 [facility] [address] [id number] Apr, Dental examination Z01.20 [facility] [address] [address] Apr, Dental examination Z01.20 [facility] [address] [address] Apr, Dental examination Z01.20 [facility] [address] [address] Mar, Dyspepsia R10.13 [facility] [address] [address] Mar, Generalized anxiety disorder F41.1 [facility] [id number] [place] [address] Mar, Encounter for dental examina tion Z01.20 [facility] [address] [id number] Mar, [facility] [address] [id number] Mar, Dental examination Z01.20 [facility] [address] [address] Feb, Hypertension I10 and Tachycardia R00.0 [facility] [address] [address] Feb, [facility] [address] [address] Feb, Generalized anxiety disorder F41.1 [facility] [address] [id number] Feb, Dental examination Z01.20 [facility] [address] [address] Jan, Generalized anxiety disorder F41.1 [facility] [address] [address] December, Generalized anxiety disorder F41.1 [facility] [address] [id number] December, Encounter for dental examination Z01.20 [facility] [address] [address] Nov, [facility] [address] [address] Nov, [facility] [address] [address] Nov, Generalized anxiety disorder F41.1 [facility] [address] [address] Oct, [facility] [address] [id number] [place] [id number] Oct, Dental examination Z01.20 [place] [address] [address] Oct, Vaginal dryness N89.8 [place] [address] [address] Oct, Pseudoseizures F44.5 [place] [address] [address] Oct, Generalized anxiety disorder F41.1 [place] [address] [address] Sep, Abnormal uterine bleeding (AUB) N93.9 ; Vaginal dryness N89.8 and Screening breast examination Z12.39 [place] [address] [address] Sep, Dental examination Z01.20 [place] [address] [address] Sep, Generalized anxiety disorder F41.1 [place] [address] [address] 06 Sep, 2016 Unspecified ovarian cyst, right side N83 .201 ; Unspecified ovarian cyst, left side N83.202 ; Yeast infection of the vagina B37.3 ; Mitral valve prolapse I34.1 and Hypertension I10 [place] [address] [address] Aug, Generalized anxiety disorder F41.1 [place] [address] [address] Jul, [place] [address] [address] Jul, Generalized anxiety disorder F41.1 [place] [address] [address] Jun, Generalized anxiety disorder F41.1 [place] [address] [address] 28 May, 2016 Encounter for immunization Z23 [facility] [address] [address] 17 May, 2016 Generalized anxiety disorder F41.1 and D epressive disorder, not elsewhere classified F32.9 [facility] [address] [address] Apr, Hypertension I10 [facility] [address] [address] Apr, Cervicalgia M54.2 [facility] [address] [id number] [address] [place] [address] Apr, Cervicalgia M54.2 [facility] [address] [address] Mar, Generalized anxiety disorder F41.1 and D epressive disorder, not elsewhere classified F32.9 [facility] [address] [id number] Feb, Visit for dental examination Z01.20 [facility] [address] [address] Feb, Pseudoseizures F44.5 ; Migraine without status migrainosus, not intractable, unspecified migraine type G43.909 and Essential hypertension I10 [facility] [address] [id number] Feb, Dental examination Z01.20 [facility] [address] [address] Feb, Generalized anxiety disorder F41.1 and D epressive disorder, not elsewhere classified F32.9 [place] [address] [address] Jan, Tachycardia R00.0 [facility] [address] [address] December, Eustachian tube dysfunction, bilateral H 69.83 [place] [address] [address] December, Generalized anxiety disorder F41.1 and D epressive disorder, not elsewhere classified F32.9 [place] [address] [address] Nov, [place] [address] [address] Nov, [place] [address] [address] Nov, Hypertension I10 ; Onychomycosis B35.1 ; [...] and Complex cyst of left ovary N83.29 [place] [address] [address] Nov, Sinusitis J32.9 [place] [address] [address] Oct, Complex cyst of left ovary N83.29 [place] [id number] [place] [address] Oct, Onychomycosis B35.1 [facility] [address] [id number] [place] [address] 17 Oct, 2015 Dental examination Z01.[address] [address] 09 Oct, 2015 Well woman exam Z01.419 [...] R92.2 and History of colon polyps Z86.010 [facility] [address] [address] Oct, Generalized anxiety disorder F41.1 and D epressive disorder, not elsewhere classified F32.9 [place] [address] [address] Sep, Hypertension I10 and Onychomycosis B35.1 [place] [address] [address] Sep, Skin tags, multiple acquired L91.8 [place] [address] [address] Aug, [place] [address] [address] Aug, [place] [address] [address] Aug, [place] [address] [address] Aug, Generalized anxiety disorder F41.1 and D epressive disorder, not elsewhere classified F32.9 [place] [address] [address] Jul, Skin lesion L98.9 [place] [address] [address] Jun, Generalized anxiety disorder F41.1 and D epressive disorder, not elsewhere classified F32.9 [place] [address] [address] Jun, [place] [address] [address] Jun, Generalized anxiety disorder F41.1 [place] [address] [address] May, Encounter for immunization Z23 and Right shoulder pain M25.511 [facility] [address] [address] Apr, [facility] [address] [address] 14 Apr, 2015 Generalized anxiety disorder 300.02 and Depressive disorder, not elsewhere classified 311 [facility] [address] [id number] Mar, Dental examination V72.2 [facility] [address] [address] Mar, Generalized anxiety disorder 300.02 and Depressive disorder, not elsewhere classified 311 [facility] [address] [address] Mar, Depression, major, recurrent, 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.35 and 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 [facility] [address] [address] Feb, Generalized anxiety disorder 300.02 and Depressive disorder, not elsewhere classified 311 [facility] [address] [id number] Feb, Dental examination V72.2 [facility] [address] [address] Jan, Generalized anxiety disorder 300.02 and Depressive disorder, not elsewhere classified 311 [facility] [address] [address] Jan, [facility] [address] [address] December, Generalized anxiety disorder 300.02 and Depressive disorder, not elsewhere classified 311 [facility] [address] [address] December, Major depressive disorder, recurrent, un specified 296.30 and Panic disorder with agoraphobia 300.21 [facility] [address] [address] 14 Nov, 2014 [facility] [address] [id number] [facility] [place] [address] 13 Nov, 2014 [facility] [address] [id number] [place] [address] Oct, [facility] [address] [id number] [place] [address] Oct, [facility] [address] [id number] [place] [address] Oct, [facility] [address] [id number] [facility] [place] [address] Oct, [facility] [address] [id number] [place] [address] Sep, [facility] [address] [id number] [place] [address] Sep, [facility] [address] [id number] [place] [address] Sep, 2014 [facility] [address] [id number] [place] [address] Sep, [facility] [address] [id number] [place] [address] Sep, 2014 [facility] [address] [id number] [place] [address] Sep, [facility] [address] [id number] [place] [address] Sep, 2014 [facility] [address] [id number] [place] [address] Sep, [facility] [address] [id number] [place] [address] Sep, 2014 [facility] [address] [id number] [place] [address] Sep, [facility] [address] [id number] [place] [address] Aug, [facility] [address] [id number] [place] [address] Aug, [facility] [address] [id number] [place] [address] Jul, [facility] [address] [id number] [place] [address] Jul, [facility] [id number] [place] [address] Jul, [facility] [id number] [place] [address] Jul, [facility] [id number] [place] [address] Jul, [facility] [id number] [place] [address] Jul, [facility] [id number] [place] [address] Jul, [facility] [id number] [place] [address] Jul, [facility] [id number] [place] [address] Jul, [facility] [id number] [place] [address] Jul, [facility] [id number] [place] [address] Jul, [facility] [id number] [place] [address] Jul, [facility] [id number] [place] [address] Jun, [facility] [id number] [place] [address] Jun, [facility] [id number] [place] [address] May, [facility] [id number] [place] [address] May, [facility] [address] [id number] [place] [address] May, [facility] [id number] [place] [address] May, [facility] [id number] [place] [address] May, [facility] [id number] [place] [address] May, [facility] [id number] [place] [address] May, [facility] [id number] [place] [address] May, [facility] [id number] [place] [address] May, [facility] [id number] [place] [address] May, [facility] [id number] [place] [address] May, [facility] [id number] [place] [address] May, [facility] [id number] [place] [address] Apr, 2013 [facility] [id number] [place] [address] 30 Apr, 2013 [facility] [id number] [place] [address] 29 Apr, 2013 [facility] [id number] [place] [address] 29 Apr, 2013 [facility] [id number] [place] [address] Apr, 2013 [facility] [id number] [place] [address] Apr, 2013 [facility] [address] [id number] [facility] [place] [address] Feb, [facility] [address] [id number] [place] [address] Feb, [facility] [address] [id number] [place] [address] Feb, [facility] [id number] [place] [address] Feb, [facility] [address] [id number] [place] [address] Feb, [facility] [address] [id number] [place] [address] Feb, [facility] [id number] [place] [address] Jan, [facility] [id number] [place] [address] Jan, [facility] [id number] [place] [address] Jan, [facility] [id number] [place] [address] Jan, [facility] [id number] [place] [address] Jan, [facility] [id number] [place] [address] Jan, [facility] [id number] [place] [address] Jan, [facility] [address] [id number] [place] [address] Jan, [facility] [id number] [place] [address] December, [facility] [id number] [place] [address] December, [facility] [id number] [place] [address] December, [facility] [id number] [place] [address] December, [facility] [address] [id number] [place] [address] Nov, [facility] [id number] [place] [address] Nov, [facility] [id number] [place] [address] Nov, [facility] [address] [id number] [place] [address] Nov, [facility] [id number] [place] [address] Nov, [facility] [id number] [place] [address] Nov, [facility] [id number] [place] [address] Nov, [facility] [id number] [place] [address] Nov, [facility] [id number] [place] [address] Oct, [facility] [id number] [place] [address] Oct, [facility] [id number] [place] [address] Sep, [facility] [id number] [place] [address] Sep, [facility] [address] [id number] [place] [id number] Sep, [facility] [id number] [place] [address] Sep, [facility] [id number] [place] [address] Sep, [facility] [id number] [place] [address] 14 Sep, 2013 [facility] [id number] [place] [address] Aug, [facility] [id number] [place] [address] Aug, [facility] [id number] [place] [address] Aug, [facility] [id number] [place] [address] Aug, [facility] [id number] [place] [address] Jul, [facility] [id number] [place] [address] Jul, [facility] [id number] [place] [address] Jul, [facility] [id number] [place] [address] Jul, [facility] [id number] [place] [address] Jun, [facility] [id number] [place] [address] Jun, [facility] [id number] [place] [address] 24 May, 2013 [facility] [id number] [place] [address] 24 May, 2013 [facility] [id number] [place] [address] 11 May, 2013 [facility] [id number] [place] [address] 11 May, 2013 [facility] [id number] [place] [address] 10 May, 2013 [facility] [id number] [place] [address] 17 Apr, 2013 [facility] [address] [id number] [place] [address] Apr, [facility] [id number] [place] [address] Mar, [facility] [id number] [place] [address] Mar, [facility] [id number] [place] [address] Mar, [facility] [address] [id number] [place] [address] Mar, [facility] [id number] [place] [address] Feb, [facility] [id number] [place] [address] Feb, [facility] [id number] [place] [address] Feb, [facility] [id number] [place] [address] Feb, [facility] [id number] [place] [address] Feb, [facility] [id number] [place] [address] Jan, [facility] [id number] [place] [address] Jan, [facility] [id number] [place] [address] Jan, [facility] [id number] [place] [address] Jan, [facility] [id number] [place] [address] Jan, [facility] [id number] [place] [address] December, [facility] [id number] [place] [address] December, [facility] [id number] [place] [address] Nov, [facility] [id number] [place] [address] Nov, [facility] [id number] [place] [address] Oct, [facility] [id number] [place] [address] Oct, [facility] [id number] [place] [address] 05 Oct, 2012 [facility] [id number] [place] [address] 14 Sep, 2012 [facility] [id number] [place] [address] Aug, [facility] [id number] [place] [address] Aug, [facility] [id number] [place] [address] Aug, [facility] [id number] [place] [address] Aug, [facility] [id number] [place] [address] Jul, [facility] [id number] [place] [address] Jul, [facility] [id number] [place] [address] Jul, [facility] [id number] [place] [address] Jul, [facility] [id number] [place] [address] Jul, [facility] [id number] [place] [address] Jul, [facility] [id number] [place] [address] Jul, [facility] [id number] [place] [address] Jul, [facility] [id number] [place] [address] Jun, [facility] [id number] [place] [address] Jun, [facility] [id number] [place] [address] Jun, [facility] [id number] [place] [address] Jun, [facility] [id number] [place] [address] Jun, [facility] [id number] [place] [address] Jun, [facility] [id number] [place] [address] May, [facility] [id number] [place] [address] May, [facility] [id number] [place] [address] May, [facility] [id number] [place] [address] May, [facility] [id number] [place] [address] Apr, [facility] [id number] [place] [address] Apr, [facility] [id number] [place] [address] Mar, [facility] [id number] [place] [address] Jan, [facility] [id number] [place] [address] Jan, [facility] [id number] [place] [address] 16 Jan, 2012 [facility] [id number] [place] [address] 15 Jan, 2012 [facility] [id number] [place] [address] 14 Jan, 2012 [facility] [id number] [place] [address] 14 Jan, 2012 [facility] [id number] [place] [address] 07 Jan, 2012 [facility] [id number] [place] [address] December, [facility] [id number] [place] [address] December, [facility] [id number] [place] [address] December, [facility] [id number] [place] [address] December, [facility] [id number] [place] [address] Nov, [facility] [id number] [place] [address] Nov, [facility] [id number] [place] [address] Oct, [facility] [id number] [place] [address] Oct, [facility] [id number] [place] [address] Oct, [facility] [id number] [place] [address] Sep, [facility] [id number] [place] [address] Sep, [facility] [id number] [place] [address] Sep, [facility] [id number] [place] [address] Aug, [facility] [id number] [place] [address] Aug, [facility] [id number] [place] [address] Aug, [facility] [id number] [place] [address] Aug, [facility] [id number] [place] [address] Aug, [facility] [id number] [place] [address] Aug, [facility] [id number] [place] [address] Aug, [facility] [id number] [place] [address] Jul, [facility] [id number] [place] [address] Jul, [facility] [id number] [place] [address] 30 Jun, 2011 [facility] [id number] [place] [address] 28 Jun, 2011 [facility] [id number] [place] [address] 17 Jun, 2011 [facility] [id number] [place] [address] 15 Jun, 2011 [facility] [id number] [place] [address] 14 Jun, 2011 [facility] [id number] [place] [address] 14 Jun, 2011 [facility] [id number] [place] [address] 07 Jun, 2011 [facility] [id number] [place] [address] Jun, [facility] [id number] [place] [address] Jun, [facility] [id number] [place] [address] Jun, [facility] [id number] [place] [address] May, [facility] [id number] [place] [address] May, [facility] [id number] [place] [address] May, [facility] [id number] [place] [address] May, [facility] [id number] [place] [address] May, [facility] [id number] [place] [address] May, [facility] [id number] [place] [address] Feb, [facility] [id number] [place] [address] December, [facility] [id number] [place] [address] Jul, [facility] [id number] [place] [address] Jul, [facility] [id number] [place] [address] Jul, [facility] [id number] [place] [address] Jul, [facility] [id number] [place] [address] Jun, [facility] [id number] [place] [address] Jul, [facility] [id number] [place] [address] Jul, [facility] [id number] [place] [address] Jul, [facility] [id number] [place] [address] Jul, [facility] [address] [address] Jul, [facility] [id number] [place] [address] Jul, [facility] [address] [address] Jan, [facility] [id number] [place] [address] Sep, [facility] [id number] [place] [address] Sep, IMMUNIZATIONS No Known Immunizations SOCIAL HISTORY Never Assessed REASON FOR VISIT PLAN OF CARE VITAL SIGNS MEDICATIONS Unknown Medications RESULTS No Results PROCEDURES Procedure Date Ordered Result Body Site PSYTX PT&/FAMILY 45 MINUTES February 15, 2014 INSTRUCTIONS MEDICATIONS ADMINISTERED No Known Medications [...]
--- OUTSIDE RECORDS SUMMARY | 2020-01-27 10:12 | XMS REPORT ---
Author Author Silvia Anthony Organization [facility] Address [address] [place] [address] Care Team Providers Care Supervisory It Specialist Name Role Phone ROBERT Anthony Unavailable PROBLEMS Type Condition ICD9-CM Code [id number] Code Onset Dates Condition S tatus SNOMED Code Problem Hypertension I10 Active 2655652 3 Problem Generalized anxiety disorder F41.1 A ctive 861024195 Problem History of colon polyps Z86.010 Active 339807144 Problem History of diverticulitis Z87.19 Acti ve [id number] Problem Family history of diabetes mellitus Z83.3 Active 946731786 Problem Excessive and frequent menstruation with irregular cycle N92.1 Active 513738322 Problem Hot flashes N95.1 Active 73131680 8 Problem Gastroesophageal reflux disease with esophagitis K 21.0 Active 295364247 Problem History of ovarian cyst Z87.42 Active 18449814 Problem Diverticulitis K57.92 Active 79620 6006 Problem Dense breast tissue R92.2 Active 615166938 Problem Perimenopausal N95.1 Active 65836 7388204494 Problem Mitral valve prolapse I34.1 Active 564368374 Problem Abnormal uterine bleeding (AUB) N93.9 Active 52698043805233 Problem Tachycardia R00.0 Active 1431560 ALLERGIES No Information ENCOUNTERS Encounter Location Date Diagnosis [facility] [address] [facility] [id number] [address] [place] [address] Jun, [facility] [address] [facility] [id number] [address] [place] [address] May, [facility] [address] [facility] [id number] [place] [address] May, [facility] [address] [facility] [id number] [address] [place] [address] Apr, Generalized anxiety disorder F41.1 and Bereavement Z63.4 [facility] [address] [id number] [address] [place] [address] Apr, Generalized anxiety disorder F41.1 [facility] [address] [id number] [address] [address] Mar, Caries K02.9 ; Dental examin ation Z01.20 ; Periodontitis K05.30 and Oral health maintenance status requiring routine preventive dental care K08.9 [facility] [address] [id number] [address] [place] [address] Mar, Generalized anxiety disorder F41.1 [facility] [address] [facility] [id number] [address] [place] [address] Mar, Gastrointestinal hemorrhage associated with gastroduodenitis K29.91 [facility] [address] [facility] [id number] [address] [place] [address] Mar, Generalized anxiety disorder F41.1 and Bereavement Z63.4 [facility] [address] [facility] [id number] [address] [place] [address] Mar, [facility] [address] [facility] [id number] [address] [place] [address] Mar, [facility] [address] [facility] [id number] [address] [place] [address] Mar, [facility] [address] [facility] [id number] [address] [place] [address] Mar, Tachycardia R00.0 and Essent ial hypertension I10 [facility] [address] [facility] [id number] [address] [place] [address] Feb, Generalized anxiety disorder F41.1 [facility] [address] [facility] [id number] [address] [place] [address] Feb, Generalized anxiety disorder F41.1 and Bereavement Z63.4 [facility] [address] [facility] [id number] [address] [place] [address] Feb, Generalized anxiety disorder F41.1 [facility] [address] [facility] [id number] [address] [place] [address] Feb, Generalized anxiety disorder F41.1 and Bereavement Z63.4 [facility] [address] [facility] [id number] [address] [place] [address] Jan, [facility] [address] [facility] [id number] [address] [place] [address] Jan, Breast cancer screening by trenton crenshaw Z12.31 [facility] [address] [facility] [id number] [address] [place] [address] Jan, Generalized anxiety disorder F41.1 and Bereavement Z63.4 [facility] [address] [facility] [id number] [address] [place] [address] Jan, [facility] [address] [facility] [id number] [address] [place] [address] December, Generalized anxiety disorder F41.1 and Bereavement Z63.4 [facility] [address] [place] [id number] [address] [place] [address] December, Diverticulitis K57.92 ; Dysu nick R30.0 ; Other constipation K59.09 and Lower abdominal pain R10.30 [facility] [address] [facility] [id number] [address] [place] [address] Nov, Diverticulitis K57.92 [facility] [address] [facility] [id number] [address] [place] [address] Nov, Generalized anxiety disorder F41.1 and Bereavement Z63.4 [facility] [address] [place] [id number] [address] [place] [address] Nov, Generalized anxiety disorder F41.1 and Bereavement Z63.4 [facility] [address] [facility] [id number] [address] [place] [address] Nov, Diverticulitis K57.92 [facility] [address] [facility] [id number] [address] [place] [address] Oct, Diverticulitis K57.92 [facility] [address] [facility] [id number] [address] [place] [address] Oct, Diverticulitis K57.92 [facility] [address] [facility] [id number] [address] [place] [address] Oct, Generalized anxiety disorder F41.1 [facility] [address] [facility] [id number] [address] [place] [address] Oct, Right lower quadrant abdomin al pain R10.31 and Diverticulitis K57.92 [facility] [address] [facility] [id number] [address] [place] [address] Sep, Generalized anxiety disorder F41.1 and Bereavement Z63.4 [facility] [address] [facility] [id number] [address] [place] [address] Aug, [facility] [address] [facility] [id number] [address] [place] [address] Aug, Generalized anxiety disorder F41.1 and Bereavement Z63.4 [facility] [address] [id number] [place] [address] Aug, Caries K02.9 [facility] [address] [facility] [id number] [address] [place] [address] Jul, Generalized anxiety disorder F41.1 and Bereavement Z63.4 [facility] [address] [facility] [id number] [address] [place] [address] Jul, Other acute gastritis withou t hemorrhage K29.00 ; Generalized anxiety disorder F41.1 ; Tachycardia R00.0 and Essential hypertension I10 [facility] [address] [facility] [id number] [address] [place] [address] Jul, Generalized anxiety disorder F41.1 and Bereavement Z63.4 [facility] [address] [id number] [address] [place] [address] 19 Jun, 2018 Generalized anxiety disorder F41.1 and Bereavement Z63.4 [facility] [address] [facility] [id number] [address] [place] [address] 06 Jun, 2018 Generalized anxiety disorder F41.1 and Bereavement Z63.4 [facility] [address] [id number] [address] [address] 02 Jun, 2018 Dental examination Z01.20 [facility] [address] [facility] [id number] [address] [place] [address] 22 May, 2018 Generalized anxiety disorder F41.1 and Bereavement Z63.4 [facility] [address] [facility] [id number] [address] [place] [address] 08 May, 2018 Encounter for immunization Z 23 [facility] [address] [facility] [id number] [address] [place] [address] 08 May, 2018 Generalized anxiety disorder F41.1 and Bereavement Z63.4 [facility] [address] [id number] [address] [place] [address] May, [facility] [address] [facility] [id number] [address] [place] [address] 24 Apr, 2018 Generalized anxiety disorder F41.1 and Bereavement Z63.4 [facility] [address] [facility] [id number] [address] [place] [address] 17 Apr, 2018 [facility] [address] [facility] [id number] [address] [place] [address] 13 Apr, 2018 Diverticulitis K57.92 [facility] [address] [id number] [address] [place] [address] 10 Apr, 2018 Generalized anxiety disorder F41.1 and Bereavement Z63.4 [facility] [address] [facility] [id number] [address] [place] [address] Mar, [facility] [address] [id number] [address] [place] [address] Mar, Diverticulitis K57.92 [facility] [address] [facility] [id number] [address] [place] [address] Mar, Generalized anxiety disorder F41.1 and Bereavement Z63.4 [facility] [address] [facility] [id number] [address] [place] [address] Mar, Hypertension I10 [facility] [address] [facility] [id number] [address] [place] [address] Mar, Generalized anxiety disorder F41.1 and Bereavement Z63.4 [facility] [address] [facility] [id number] [address] [place] [address] Feb, Generalized anxiety disorder F41.1 and Bereavement Z63.4 [facility] [address] [facility] [id number] [address] [place] [address] Feb, [facility] [address] [facility] [id number] [address] [place] [address] Feb, Generalized anxiety disorder F41.1 and Bereavement Z63.4 [facility] [address] [facility] [id number] [address] [place] [address] Feb, Generalized anxiety disorder F41.1 and Bereavement Z63.4 [facility] [address] [facility] [id number] [address] [place] [address] Jan, Hypertension I10 and Acute n on-recurrent maxillary sinusitis J01.00 [facility] [address] [facility] [id number] [address] [place] [address] December, [facility] [address] [facility] [id number] [address] [place] [address] December, Hypertension I10 [facility] [address] [facility] [id number] [address] [place] [address] December, Generalized anxiety disorder F41.1 [facility] [address] [id number] [place] [address] 16 Oct, 2017 Encounter for dental examina tion Z01.20 [facility] [address] [id number] [place] [address] 06 Oct, 2017 Encounter for dental examina tion Z01.20 [facility] [address] [id number] [place] [address] 02 Oct, 2017 Dental examination Z01.20 [facility] [address] [id number] [address] [place] [address] Oct, Generalized anxiety disorder F41.1 [facility] [address] [id number] [address] [place] [address] Aug, Dental examination Z01.20 [facility] [address] [id number] [address] [place] [address] Aug, Generalized anxiety disorder F41.1 [facility] [address] [id number] [address] [place] [address] Aug, [facility] [address] [id number] [address] [place] [address] 09 Aug, 2017 Encounter for dental examina tion Z01.20 [facility] [address] [id number] [address] [place] [address] Aug, Subacute maxillary sinusitis J01.00 [facility] [address] [id number] [address] [place] [address] Jul, Dental examination Z01.20 [facility] [address] [id number] [address] [place] [address] Jul, Generalized anxiety disorder F41.1 [facility] [address] [id number] [address] [place] [address] Jul, Diverticulitis K57.92 [facility] [address] [id number] [address] [place] [address] 28 Jun, 2017 Encounter for immunization Z 23 [facility] [address] [id number] [address] [place] [address] 22 Jun, 2017 Dental examination Z01.20 [facility] [address] [id number] [address] [place] [address] 14 Jun, 2017 Generalized anxiety disorder F41.1 [facility] [address] [id number] [address] [place] [address] 07 Jun, 2017 Dental examination Z01.20 [facility] [address] [id number] [address] [place] [address] May, [facility] [address] [id number] [address] [place] [id number] May, Dental examination Z01.20 [facility] [address] [id number] [address] [place] [address] [id number] May, Dental examination Z01.20 [facility] [address] [id number] [address] [place] [address] May, Dental examination Z01.20 [facility] [address] [id number] [address] [place] [address] May, [facility] [address] [id number] [address] [place] [address] May, Generalized anxiety disorder F41.1 [facility] [address] [id number] [address] [place] [address] 05 May, 2017 Localized edema R60.0 ; Yeas t vaginitis B37.3 and Gastroesophageal reflux disease with esophagitis K21.0 [facility] [address] [id number] [address] [place] [address] [id number] Apr, Dental examination Z01.20 [facility] [address] [id number] [address] [place] [address] Apr, Dental examination Z01.20 [facility] [address] [id number] [place] [address] 05 Apr, 2017 Dental examination Z01.20 [facility] [address] [id number] [address] [place] [address] Mar, Dyspepsia R10.13 [facility] [address] [id number] [address] [place] [address] Mar, Generalized anxiety disorder F41.1 [facility] [address] [id number] [place] [address] Mar, Encounter for dental examina tion Z01.20 [facility] [address] [id number] [address] [place] [address] [id number] Mar, [facility] [address] [id number] [address] [place] [address] [id number] Mar, Dental examination Z01.20 [facility] [address] [id number] [address] [place] [address] Feb, Hypertension I10 and Tachyca rdia R00.0 [facility] [address] [id number] [address] [place] [address] Feb, [facility] [address] [id number] [address] [place] [address] Feb, Generalized anxiety disorder F41.1 [facility] [address] [id number] [address] [place] [id number] Feb, Dental examination Z01.20 [facility] [address] [id number] [address] [place] [address] Jan, Generalized anxiety disorder F41.1 [facility] [address] [id number] [address] [place] [address] December, Generalized anxiety disorder F41.1 [facility] [address] [id number] [address] [place] [address] [id number] December, Encounter for dental examina tion Z01.20 [facility] [address] [facility] [id number] [address] [place] [address] 24 Nov, 2016 [facility] [address] [facility] [id number] [address] [place] [address] Nov, [facility] [address] [facility] [id number] [address] [place] [address] Nov, Generalized anxiety disorder F41.1 [facility] [address] [facility] [id number] [address] [place] [address] 30 Oct, 2016 [facility] [address] [facility] [id number] [address] [place] [address] [id number] Oct, Dental examination Z01.20 [facility] [address] [facility] [id number] [address] [place] [address] Oct, Vaginal dryness N89.8 [facility] [address] [place] [id number] [address] [place] [address] Oct, Pseudoseizures F44.5 [facility] [address] [place] [id number] [address] [place] [address] Oct, Generalized anxiety disorder F41.1 [facility] [address] [place] [id number] [address] [place] [address] 28 Sep, 2016 Abnormal uterine bleeding (A UB) N93.9 ; Vaginal dryness N89.8 and Screening breast examination Z12.39 [facility] [address] [facility] [id number] [address] [place] [address] Sep, Dental examination Z01.20 [facility] [address] [facility] [id number] [address] [place] [address] Sep, Generalized anxiety disorder F41.1 [facility] [address] [place] [id number] [address] [place] [address] 06 Sep, 2016 Unspecified ovarian cyst, ri ght side N83.201 ; Unspecified ovarian cyst, left side N83.202 ; Yeast infection of the vagina B37.3 ; Mitral valve prolapse I34.1 and Hypertension I10 [facility] [address] [id number] [address] [place] [address] 18 Aug, 2016 Generalized anxiety disorder F41.1 [facility] [address] [id number] [address] [place] [address] 28 Jul, 2016 [facility] [address] [id number] [address] [place] [address] Jul, Generalized anxiety disorder F41.1 [facility] [address] [id number] [address] [place] [address] 15 Jun, 2016 Generalized anxiety disorder F41.1 [facility] [address] [id number] [address] [place] [address] 28 May, 2016 Encounter for immunization Z 23 [facility] [address] [facility] [id number] [address] [place] [address] 17 May, 2016 Generalized anxiety disorder F41.1 and Depressive disorder, not elsewhere classified F32.9 [facility] [address] [id number] [address] [place] [address] 28 Apr, 2016 Hypertension I10 [facility] [address] [id number] [address] [place] [address] 22 Apr, 2016 Cervicalgia M54.2 [facility] [address] [facility] [id number] [address] [place] [address] 12 Apr, 2016 Cervicalgia M54.2 [facility] [address] [facility] [id number] [address] [place] [address] 09 Mar, 2016 Generalized anxiety disorder F41.1 and Depressive disorder, not elsewhere classified F32.9 [facility] [address] [id number] [address] [place] [address] [id number] 14 Feb, 2016 Visit for dental examination Z01.20 [facility] [address] [facility] [id number] [address] [place] [address] 11 Feb, 2016 Pseudoseizures F44.5 ; Migra ine without status migrainosus, not intractable, unspecified migraine type G43.909 and Essential hypertension I10 [facility] [address] [id number] [address] [place] [address] [id number] 06 Feb, 2016 Dental examination Z01.20 [facility] [address] [facility] [id number] [address] [place] [phone] 05 Feb, 2016 Generalized anxiety disorder F41.1 and Depressive disorder, not elsewhere classified F32.9 [facility] [address] [facility] [id number] [address] [place] [address] Jan, Tachycardia R00.0 [facility] [address] [facility] [id number] [address] [place] [address] December, Eustachian tube dysfunction, bilateral H69.83 [facility] [address] [facility] [id number] [address] [place] [address] December, Generalized anxiety disorder F41.1 and Depressive disorder, not elsewhere classified F32.9 [facility] [address] [facility] [id number] [address] [place] [address] 29 Nov, 2015 [facility] [address] [facility] [id number] [address] [place] [address] 28 Nov, 2015 [facility] [address] [place] [id number] [address] [place] [address] 20 Nov, 2015 Hypertension I10 ; Onychomyc [...] N83.29 [facility] [address] [place] [id number] [address] [place] [id number] 14 Nov, 2016 Sinusitis J32.9 [facility] [id number] [place] [id number] Oct, Complex cyst of left ovary N 83.29 [facility] [address] [place] [id number] [address] [place] [id number] Oct, Onychomycosis B35.1 [facility] [address] [facility] [id number] [address] [place] [id number] 17 Oct, 2015 Dental examination Z01.20 [place] [address] [place] [id number] [place] [id number] 09 Oct, 2015 Well woman exam Z01.419 [...] History of colon polyps Z86.010 [place] [address] [place] [id number] [place] [phone] Oct, Generalized anxiety disorder F41.1 and Depressive disorder, not elsewhere classified F32.9 [place] [address] [place] [id number] [address] [place] [phone] Sep, Hypertension I10 and Onychom ycosis B35.1 [place] [id number] [place] [id number] Sep, Skin tags, multiple acquired L91.8 [place] [address] [place] [id number] [place] [phone] Aug, [place] [address] [phone] Aug, [place] [address] [address] [address] Aug, [facility] [address] [facility] [id number] [address] [place] [address] Aug, Generalized anxiety disorder F41.1 and Depressive disorder, not elsewhere classified F32.9 [facility] [address] [facility] [id number] [address] [place] [address] Jul, Skin lesion L98.9 [facility] [address] [facility] [id number] [address] [place] [address] Jun, Generalized anxiety disorder F41.1 and Depressive disorder, not elsewhere classified F32.9 [facility] [address] [facility] [id number] [address] [place] [address] Jun, [facility] [address] [facility] [id number] [address] [place] [address] Jun, Generalized anxiety disorder F41.1 [facility] [address] [facility] [id number] [address] [place] [address] May, Encounter for immunization Z 23 and Right shoulder pain M25.511 [facility] [address] [facility] [id number] [address] [place] [address] Apr, [facility] [address] [facility] [id number] [address] [place] [address] 14 Apr, 2015 Generalized anxiety disorder 300.02 and Depressive disorder, not elsewhere classified 311 [facility] [address] [id number] [address] [place] [id number] Mar, Dental examination V72.2 [facility] [address] [facility] [id number] [address] [place] [address] Mar, Generalized anxiety disorder 300.02 and Depressive disorder, not elsewhere classified 311 [facility] [address] [facility] [id number] [address] [place] [address] Mar, Depression, major, recurrent , 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.35 and 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 [facility] [address] [facility] [id number] [address] [place] [address] Feb, Generalized anxiety disorder 300.02 and Depressive disorder, not elsewhere classified 311 [facility] [address] [id number] [address] [place] [id number] Feb, Dental examination V72.2 [facility] [address] [id number] [address] [place] [address] 09 Jan, 2015 Generalized anxiety disorder 300.02 and Depressive disorder, not elsewhere classified 311 [facility] [address] [id number] [address] [place] [address] Jan, [facility] [address] [id number] [address] [place] [address] December, Generalized anxiety disorder 300.02 and Depressive disorder, not elsewhere classified 311 [facility] [address] [facility] [id number] [address] [place] [address] December, Major depressive disorder, r ecurrent, unspecified 296.30 and Panic disorder with agoraphobia 300.21 [facility] [address] [facility] [id number] [address] [place] [address] Nov, [facility] [address] [facility] [id number] [address] [place] [address] Nov, [facility] [address] [facility] [id number] [address] [place] [address] Oct, [facility] [address] [facility] [id number] [address] [place] [address] Oct, [facility] [address] [facility] [id number] [address] [place] [address] Oct, [facility] [address] [facility] [id number] [address] [place] [address] Oct, [facility] [address] [facility] [id number] [address] [place] [address] Sep, [facility] [address] [facility] [id number] [address] [place] [address] Sep, [facility] [address] [id number] [address] [place] [address], [place] [address] Sep, 2014 [facility] [address] [id number] [address] [place] [address], [place] [address] Sep, 2014 [facility] [address] [id number] [address] [place] [address], [place] [address] Sep, 2014 [facility] [address] [id number] [address] [place] [address], [place] [address] Sep, 2014 [facility] [address] [id number] [address] [place] [address], [place] [address] Sep, 2014 [facility] [address] [id number] [address] [place] [address], [place] [address] Sep, 2014 [facility] [address] [id number] [address] [place] [address], [place] [address] Sep, 2014 [facility] [address] [id number] [address] [place] [address], [place] [address] Sep, 2014 [facility] [address] [id number] [address] [place] [address], [place] [address] Aug, [facility] [address] [id number] [address] [place] [address], [place] [address] Aug, [facility] [address] [id number] [address] [place] [address], [place] [address] Jul, [facility] [address] [id number] [address] [place] [address] Jul, [facility] [address] [id number] [address] [place] [address], [place] [address] Jul, [facility] [address] [id number] [address] [place] [address], [place] [address] Jul, [facility] [address] [id number] [address] [place] [address], [place] [address] Jul, [facility] [address] [id number] [address] [place] [address] Jul, [facility] [address] [id number] [address] [place] [address], [place] [address] Jul, [facility] [address] [id number] [address] [place] [address], [place] [address] Jul, [facility] [address] [id number] [address] [place] [address], [place] [address] Jul, [facility] [address] [id number] [address] [place] [address], [place] [address] Jul, [facility] [address] [id number] [address] [place] [address], [place] [address] Jul, [facility] [address] [id number] [address] [place] [address], [place] [address] Jul, [facility] [address] [id number] [address] [place] [address], [place] [address] Jun, [facility] [address] [id number] [address] [place] [address], [place] [address] Jun, [facility] [address] [id number] [address] [place] [address], [place] [address] May, [facility] [address] [id number] [address] [place] [address], [place] [address] May, [facility] [address] [id number] [address] [place] [address], [place] [address] May, [facility] [address] [id number] [address] [place] [address] May, [facility] [address] [id number] [address] [place] [address], [place] [address] May, [facility] [address] [id number] [address] [place] [address], [place] [address] May, [facility] [address] [id number] [address] [place] [address], [place] [address] May, [facility] [address] [id number] [address] [place] [address], [place] [address] May, 2013 [facility] [address] [id number] [address] [place] [address], [place] [address] May, [facility] [address] [id number] [address] [place] [address], [place] [address] May, [facility] [address] [id number] [address] [place] [address], [place] [address] May, [facility] [address] [id number] [address] [place] [address], [place] [address] May, [facility] [address] [id number] [address] [place] [address], [place] [address] 30 Apr, 2014 [facility] [address] [id number] [address] [place] [address], [place] [address] 30 Apr, 2013 [facility] [address] [id number] [address] [place] [address], [place] [address] Apr, 2013 [facility] [address] [id number] [address] [place] [address], [place] [address] Apr, [facility] [address] [id number] [address] [place] [address], [place] [address] Apr, [facility] [address] [id number] [address] [place] [address], [place] [address] Apr, [facility] [address] [id number] [address] [place] [address], [place] [address] Feb, [facility] [address] [id number] [address] [place] [address], [place] [address] Feb, [facility] [address] [id number] [address] [place] [address], [place] [address] Feb, [facility] [address] [id number] [address] [place] [address], [place] [address] Feb, [facility] [address] [id number] [address] [place] [address], [place] [address] Feb, [facility] [address] [id number] [facility] [place] [address] Feb, [facility] [address] [id number] [address] [place] [address], [place] [address] Jan, [facility] [address] [id number] [address] [place] [address], [place] [address] Jan, [facility] [address] [id number] [address] [place] [address], [place] [address] Jan, [facility] [address] [id number] [address] [place] [address], [place] [address] Jan, [facility] [address] [id number] [address] [place] [address], [place] [address] Jan, [facility] [address] [id number] [address] [place] [address], [place] [address] Jan, [facility] [address] [id number] [address] [place] [address], [place] [address] Jan, [facility] [address] [id number] [address] [place] [address], [place] [address] Jan, [facility] [address] [id number] [address] [place] [address], [place] [address] December, [facility] [address] [id number] [address] [place] [address], [place] [address] December, [facility] [address] [id number] [address] [place] [address], [place] [address] December, [facility] [address] [id number] [address] [place] [address], [place] [address] December, [facility] [address] [id number] [address] [place] [address], [place] [address] Nov, [facility] [address] [id number] [address] [place] [address], [place] [address] Nov, [facility] [address] [id number] [address] [place] [address], [place] [address] Nov, [facility] [address] [id number] [address] [place] [address], [place] [address] Nov, [facility] [address] [id number] [address] [place] [address], [place] [address] Nov, [facility] [address] [id number] [address] [place] [address], [place] [address] Nov, [facility] [address] [id number] [address] [place] [address], [place] [address] Nov, [facility] [address] [id number] [address] [place] [address], [place] [address] Nov, [facility] [address] [id number] [address] [place] [address], [place] [address] Oct, [facility] [address] [id number] [address] [place] [address], [place] [address] Oct, [facility] [address] [id number] [address] [place] [address], [place] [address] Sep, [facility] [address] [id number] [address] [place] [address], [place] [address] Sep, [facility] [address] [id number] [address] [place] [id number] Sep, [facility] [address] [id number] [address] [place] [address], [place] [address] Sep, [facility] [address] [id number] [address] [place] [address], [place] [address] Sep, [facility] [address] [id number] [address] [place] [address], [place] [address] Sep, [facility] [address] [id number] [address] [place] [address], [place] [address] Aug, [facility] [address] [id number] [address] [place] [address], [place] [address] Aug, [facility] [address] [id number] [address] [place] [address], [place] [address] Aug, [facility] [address] [id number] [address] [place] [address], [place] [address] Aug, [facility] [address] [id number] [address] [place] [address], [place] [address] Jul, [facility] [address] [id number] [address] [place] [address], [place] [address] Jul, [facility] [address] [id number] [address] [place] [address], [place] [address] Jul, [facility] [address] [id number] [address] [place] [address], [place] [address] Jul, [facility] [address] [id number] [address] [place] [address], [place] [address] Jun, [facility] [address] [id number] [address] [place] [address] Jun, [facility] [address] [id number] [address] [place] [address], [place] [address] May, [facility] [address] [id number] [address] [place] [address] 24 May, 2013 [facility] [address] [id number] [address] [place] [address] May, [facility] [address] [id number] [address] [place] [address] 11 May, 2013 [facility] [address] [id number] [address] [place] [address], [place] [address] 10 May, 2013 [facility] [address] [id number] [address] [place] [address] 17 Apr, 2013 [facility] [address] [id number] [address] [place] [address] 10 Apr, 2013 [facility] [address] [id number] [address] [place] [address] Mar, [facility] [address] [id number] [address] [place] [address], [place] [address] Mar, [facility] [address] [id number] [address] [place] [address], [place] [address] Mar, [facility] [address] [id number] [address] [place] [address], [place] [address] Mar, [facility] [address] [id number] [address] [place] [address], [place] [address] Feb, [facility] [address] [id number] [address] [place] [address], [place] [address] Feb, [facility] [address] [id number] [address] [place] [address], [place] [address] Feb, [facility] [address] [id number] [address] [place] [address], [place] [address] Feb, [facility] [address] [id number] [address] [place] [address], [place] [address] Feb, [facility] [address] [id number] [address] [place] [address], [place] [address] Jan, [facility] [address] [id number] [address] [place] [address], [place] [address] Jan, [facility] [address] [id number] [address] [place] [address], [place] [address] Jan, [facility] [address] [id number] [address] [place] [address], [place] [address] Jan, [facility] [address] [id number] [address] [place] [address], [place] [address] Jan, [facility] [address] [id number] [address] [place] [address], [place] [address] December, [facility] [address] [id number] [address] [place] [address], [place] [address] December, [facility] [address] [id number] [address] [place] [address], [place] [address] 17 Nov, 2012 [facility] [address] [id number] [address] [place] [address], [place] [address] 02 Nov, 2012 [facility] [address] [id number] [address] [place] [address], [place] [address] 19 Oct, 2012 [facility] [address] [id number] [address] [place] [address], [place] [address] 13 Oct, 2012 [facility] [address] [id number] [address] [place] [address], [place] [address] 05 Oct, 2012 [facility] [address] [id number] [address] [place] [address], [place] [address] 14 Sep, 2012 [facility] [address] [id number] [address] [place] [address], [place] [address] 24 Aug, 2012 [facility] [address] [id number] [address] [place] [address], [place] [address] 16 Aug, 2012 [facility] [address] [id number] [address] [place] [address], [place] [address] 15 Aug, 2012 [facility] [address] [id number] [address] [place] [address], [place] [address] Aug, [facility] [address] [id number] [address] [place] [address], [place] [address] Jul, [facility] [address] [id number] [address] [place] [address], [place] [address] Jul, [facility] [address] [id number] [address] [place] [address], [place] [address] Jul, [facility] [address] [id number] [address] [place] [address], [place] [address] Jul, [facility] [address] [id number] [address] [place] [address], [place] [address] 06 Jul, 2012 [facility] [address] [id number] [address] [place] [address] [address] Jul, [facility] [address] [id number] [address] [place] [address], [place] [address] Jul, [facility] [address] [id number] [address] [place] [address], [place] [address] Jul, [facility] [address] [id number] [address] [place] [address], [place] [address] Jun, [facility] [address] [id number] [address] [place] [address], [place] [address] Jun, [facility] [address] [id number] [address] [place] [address], [place] [address] Jun, [facility] [address] [id number] [address] [place] [address], [place] [address] Jun, [facility] [address] [id number] [address] [place] [address], [place] [address] Jun, [facility] [address] [id number] [address] [place] [address], [place] [address] Jun, [facility] [address] [id number] [address] [place] [address], [place] [address] May, [facility] [address] [id number] [address] [place] [address], [place] [address] May, [facility] [address] [id number] [address] [place] [address] May, [facility] [address] [id number] [address] [place] [address] May, [facility] [address] [id number] [address] [place] [address], [place] [address] Apr, [facility] [address] [id number] [address] [place] [address] Apr, [facility] [address] [id number] [address] [place] [address] Mar, [facility] [address] [id number] [address] [place] [address], [place] [address] 28 Jan, 2012 [facility] [address] [id number] [address] [place] [address], [place] [address] 20 Jan, 2012 [facility] [address] [id number] [address] [place] [address], [place] [address] 16 Jan, 2012 [facility] [address] [id number] [address] [place] [address], [place] [address] 15 Jan, 2012 [facility] [address] [id number] [address] [place] [address], [place] [address] 14 Jan, 2012 [facility] [address] [id number] [address] [place] [address], [place] [address] 14 Jan, 2012 [facility] [address] [id number] [address] [place] [address], [place] [address] 07 Jan, 2012 [facility] [address] [id number] [address] [place] [address], [place] [address] 22 Dec, 2011 [facility] [address] [id number] [address] [place] [address], [place] [address] 10 Dec, 2011 [facility] [address] [id number] [address] [place] [address], [place] [address] December, [facility] [address] [id number] [address] [place] [address], [place] [address] 02 Dec, 2011 [facility] [address] [id number] [address] [place] [address], [place] [address] 25 Nov, 2011 [facility] [address] [id number] [address] [place] [address], [place] [address] 05 Nov, 2011 [facility] [address] [id number] [address] [place] [address], [place] [address] 29 Oct, 2011 [facility] [address] [id number] [address] [place] [address], [place] [address] 28 Oct, 2011 [facility] [address] [id number] [address] [place] [address], [place] [address] Oct, [facility] [address] [id number] [address] [place] [address], [place] [address] Sep, [facility] [address] [id number] [address] [place] [address], [place] [address] Sep, [facility] [address] [id number] [address] [place] [address], [place] [address] Sep, [facility] [address] [id number] [address] [place] [address], [place] [address] Aug, [facility] [address] [id number] [address] [place] [address], [place] [address] Aug, [facility] [address] [id number] [address] [place] [address], [place] [address] Aug, [facility] [address] [id number] [address] [place] [address], [place] [address] Aug, [facility] [address] [id number] [address] [place] [address], [place] [address] Aug, [facility] [address] [id number] [address] [place] [address], [place] [address] Aug, [facility] [address] [id number] [address] [place] [address], [place] [address] Aug, [facility] [address] [id number] [address] [place] [address], [place] [address] Jul, [facility] [address] [id number] [address] [place] [address] Jul, [facility] [address] [id number] [address] [place] [address], [place] [address] Jun, [facility] [address] [id number] [address] [place] [address], [place] [address] Jun, [facility] [address] [id number] [address] [place] [address], [place] [address] Jun, [facility] [address] [id number] [address] [place] [id number] 15 Jun, 2011 [facility] [address] [id number] [address] [place] [address], [place] [address] 14 Jun, 2011 [facility] [address] [id number] [address] [place] [id number] 14 Jun, 2011 [facility] [address] [id number] [address] [place] [address], [place] [address] 07 Jun, 2011 [facility] [address] [id number] [address] [place] [address], [place] [address] 07 Jun, 2011 [facility] [address] [id number] [address] [place] [address], [place] [address] Jun, [facility] [address] [id number] [address] [place] [address], [place] [address] Jun, [facility] [address] [id number] [address] [place] [address], [place] [address] May, [facility] [address] [id number] [address] [place] [address], [place] [address] May, [facility] [address] [id number] [address] [place] [address] May, [facility] [address] [id number] [address] [place] [address], [place] [address] 24 May, 2011 [facility] [address] [id number] [address] [place] [id number] 18 May, 2011 [facility] [address] [id number] [address] [place] [address] May, [facility] [address] [id number] [address] [place] [id number] Feb, [facility] [address] [id number] [address] [place] [address], [place] [address] December, [facility] [address] [id number] [address] [place] [address], [place] [address] Jul, [facility] [address] [id number] [address] [place] [id number] 29 Jul, 2010 [facility] [address] [id number] [address] [place] [address] Jul, [facility] [address] [id number] [address] [place] [address] Jul, [facility] [address] [id number] [address] [place] [id number] Jun, [facility] [address] [id number] [address] [place] [id number] Jul, [facility] [address] [id number] [address] [place] [address] Jul, [facility] [address] [id number] [address] [place] [address] Jul, [facility] [address] [id number] [address] [place] [id number] Jul, [facility] [address] [id number] [address] [place] [id number] Jul, [facility] [address] [id number] [address] [place] [address] Jul, [facility] [address] [id number] [address] [place] [id number] Jan, [facility] [address] [id number] [address] [place] [id number] 16 Sep, 2008 [facility] [address] [id number] [address] [place] [id number] 11 Sep, 2008 IMMUNIZATIONS No Known Immunizations [...]
--- OUTSIDE RECORDS SUMMARY | 2020-01-27 10:12 | XMS REPORT ---
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 Name Role Phone LETTY WILKINS Unavailable PROBLEMS Type Condition ICD9-CM Code [id number] Code Onset Dates Condition S tatus SNOMED Code Problem Hypertension I10 Active 2334874 3 Problem Generalized anxiety disorder F41.1 A ctive 024031590 Problem History of colon polyps Z86.010 Active 368907067 Problem History of diverticulitis Z87.19 Acti ve [id number] Problem Family history of diabetes mellitus Z83.3 Active 524635607 Problem Excessive and frequent menstruation with irregular cycle N92.1 Active 085936019 Problem Hot flashes N95.1 Active 60909424 8 Problem Gastroesophageal reflux disease with esophagitis K 21.0 Active 536762658 Problem History of ovarian cyst Z87.42 Active 50221679 Problem Diverticulitis K57.92 Active 48953 6006 Problem Dense breast tissue R92.2 Active 176323558 Problem Perimenopausal N95.1 Active 17773 0973001453 Problem Mitral valve prolapse I34.1 Active 364838362 Problem Abnormal uterine bleeding (AUB) N93.9 Active 98136499899609 Problem Tachycardia R00.0 Active [id number] ALLERGIES No Information ENCOUNTERS Encounter Location Date Diagnosis [facility] [address] [facility] [id number] [address] [place] [phone] Jun, [facility] [address] [facility] [id number] [address] [place] [phone] May, [facility] [address] [facility] [id number] [address] [place] [address] Apr, Generalized anxiety disorder F41.1 and Bereavement Z63.4 [facility] [address] [facility] [id number] [address] [place] [address] Apr, Generalized anxiety disorder F41.1 [facility] [address] [id number] [address] [address] Mar, Caries K02.9 ; Dental examin ation Z01.20 ; Periodontitis K05.30 and Oral health maintenance status requiring routine preventive dental care K08.9 [facility] [address] [facility] [id number] [address] [place] [address] Mar, Generalized anxiety disorder F41.1 [facility] [address] [facility] [id number] [address] [place] [address] Mar, Gastrointestinal hemorrhage associated with gastroduodenitis K29.91 [facility] [address] [facility] [id number] [address] [place] [phone] Mar, Generalized anxiety disorder F41.1 and Bereavement Z63.4 [facility] [address] [facility] [id number] [address] [place] [phone] Mar, [facility] [address] [facility] [id number] [address] [place] [phone] Mar, [facility] [address] [facility] [id number] [address] [place] [phone] Mar, [facility] [address] [facility] [id number] [address] [place] [phone] Mar, Tachycardia R00.0 and Essent ial hypertension I10 [facility] [address] [facility] [id number] [address] [place] [address] Feb, Generalized anxiety disorder F41.1 [facility] [address] [facility] [id number] [address] [place] [address] Feb, Generalized anxiety disorder F41.1 and Bereavement Z63.4 [facility] [address] [facility] [id number] [address] [place] [phone] Feb, Generalized anxiety disorder F41.1 [facility] [address] [facility] [id number] [address] [place] [address] Feb, Generalized anxiety disorder F41.1 and Bereavement Z63.4 [facility] [address] [facility] [id number] [address] [place] [address] Jan, [facility] [address] [facility] [id number] [address] [place] [address] Jan, Breast cancer screening by trenton crenshaw Z12.31 [facility] [address] [place] [id number] [address] [place] [phone] 13 Jan, 2019 Generalized anxiety disorder F41.1 and Bereavement Z63.4 [facility] [address] [facility] [id number] [address] [place] [address] Jan, [facility] [address] [place] [id number] [address] [place] [address] December, Generalized anxiety disorder F41.1 and Bereavement Z63.4 [facility] [address] [place] [id number] [address] [place] [address] December, Diverticulitis K57.92 ; Dysu nick R30.0 ; Other constipation K59.09 and Lower abdominal pain R10.30 [facility] [address] [facility] [id number] [address] [place] [address] Nov, Diverticulitis K57.92 [facility] [address] [place] [id number] [address] [place] [address] Nov, Generalized anxiety disorder F41.1 and Bereavement Z63.4 [facility] [address] [facility] [id number] [address] [place] [phone] Nov, Generalized anxiety disorder F41.1 and Bereavement Z63.4 [facility] [address] [facility] [id number] [address] [place] [address] Nov, Diverticulitis K57.92 [facility] [address] [facility] [id number] [address] [place] [address] Oct, Diverticulitis K57.92 [facility] [address] [facility] [id number] [address] [place] [address] Oct, Diverticulitis K57.92 [facility] [address] [facility] [id number] [address] [place] [address] Oct, Generalized anxiety disorder F41.1 [facility] [address] [facility] [id number] [address] [place] [address] Oct, Right lower quadrant abdomin al pain R10.31 and Diverticulitis K57.92 [facility] [address] [facility] [id number] [address] [place] [address] Sep, Generalized anxiety disorder F41.1 and Bereavement Z63.4 [facility] [address] [facility] [id number] [address] [place] [address] Aug, [facility] [address] [facility] [id number] [address] [place] [address] Aug, Generalized anxiety disorder F41.1 and Bereavement Z63.4 [facility] [address] [place] [id number] [address] Aug, Caries K02.9 [facility] [address] [facility] [id number] [address] [place] [address] Jul, Generalized anxiety disorder F41.1 and Bereavement Z63.4 [facility] [address] [facility] [id number] [address] [place] [address] Jul, Other acute gastritis withou t hemorrhage K29.00 ; Generalized anxiety disorder F41.1 ; Tachycardia R00.0 and Essential hypertension I10 [facility] [address] [facility] [id number] [address] [place] [address] Jul, Generalized anxiety disorder F41.1 and Bereavement Z63.4 [facility] [address] [facility] [id number] [address] [place] [address] Jun, Generalized anxiety disorder F41.1 and Bereavement Z63.4 [facility] [address] [facility] [id number] [address] [place] [address] Jun, Generalized anxiety disorder F41.1 and Bereavement Z63.4 [facility] [address] [id number] [address] [place] [address] Jun, Dental examination Z01.20 [facility] [address] [facility] [id number] [address] [place] [address] May, Generalized anxiety disorder F41.1 and Bereavement Z63.4 [facility] [address] [facility] [id number] [address] [place] [address] May, Encounter for immunization Z 23 [facility] [address] [facility] [id number] [address] [place] [address] May, Generalized anxiety disorder F41.1 and Bereavement Z63.4 [facility] [address] [facility] [id number] [address] [place] [address] May, [facility] [address] [facility] [id number] [address] [place] [phone] 24 Apr, 2018 Generalized anxiety disorder F41.1 and Bereavement Z63.4 [facility] [address] [facility] [id number] [address] [place] [address] 17 Apr, 2018 [facility] [address] [facility] [id number] [address] [place] [address] 13 Apr, 2018 Diverticulitis K57.92 [facility] [address] [facility] [id number] [address] [place] [address] 10 Apr, 2018 Generalized anxiety disorder F41.1 and Bereavement Z63.4 [facility] [address] [facility] [id number] [address] [place] [address] Mar, [facility] [address] [facility] [id number] [address] [place] [address] Mar, Diverticulitis K57.92 [facility] [address] [facility] [id number] [address] [place] [address] Mar, Generalized anxiety disorder F41.1 and Bereavement Z63.4 [facility] [address] [facility] [id number] [address] [place] [address] Mar, Hypertension I10 [facility] [address] [facility] [id number] [address] [place] [address] Mar, Generalized anxiety disorder F41.1 and Bereavement Z63.4 [facility] [address] [facility] [id number] [address] [place] [address] Feb, Generalized anxiety disorder F41.1 and Bereavement Z63.4 [facility] [address] [facility] [id number] [address] [place] [address] Feb, [facility] [address] [facility] [id number] [address] [place] [address] Feb, Generalized anxiety disorder F41.1 and Bereavement Z63.4 [facility] [address] [facility] [id number] [address] [place] [address] Feb, Generalized anxiety disorder F41.1 and Bereavement Z63.4 [facility] [address] [facility] [id number] [address] [place] [address] Jan, Hypertension I10 and Acute n on-recurrent maxillary sinusitis J01.00 [facility] [address] [facility] [id number] [address] [place] [address] December, [facility] [address] [facility] [id number] [address] [place] [address] December, Hypertension I10 [facility] [address] [facility] [id number] [address] [place] [address] December, Generalized anxiety disorder F41.1 [facility] [address] [id number] [address] [place] [address] Oct, Encounter for dental examina tion Z01.20 [facility] [address] [id number] [address] [address] 06 Oct, 2017 Encounter for dental examina tion Z01.20 [facility] [address] [id number] [address] [address] 02 Oct, 2017 Dental examination Z01.20 [facility] [address] [id number] [address] [place] [address] Oct, Generalized anxiety disorder F41.1 [facility] [address] [id number] [address] [place] [address] Aug, Dental examination Z01.20 [facility] [address] [id number] [address] [place] [address] Aug, Generalized anxiety disorder F41.1 [facility] [address] [id number] [address] [place] [address] Aug, [facility] [address] [id number] [address] [place] [address] Aug, Encounter for dental examina tion Z01.20 [facility] [address] [id number] [address] [place] [address] Aug, Subacute maxillary sinusitis J01.00 [facility] [address] [id number] [address] [place] [address] Jul, Dental examination Z01.20 [facility] [address] [id number] [address] [place] [address] Jul, Generalized anxiety disorder F41.1 [facility] [address] [facility] [id number] [address] [place] [address] 11 Jul, 2017 Diverticulitis K57.92 [facility] [address] [id number] [address] [place] [address] 28 Jun, 2017 Encounter for immunization Z 23 [facility] [address] [id number] [address] [place] [address] Jun, Dental examination Z01.20 [facility] [address] [id number] [address] [place] [address] 14 Jun, 2017 Generalized anxiety disorder F41.1 [facility] [address] [id number] [address] [place] [address] 07 Jun, 2017 Dental examination Z01.20 [facility] [address] [id number] [address] [place] [address] May, [facility] [address] [id number] [address] [place] [address] [id number] May, Dental examination Z01.20 [facility] [address] [id number] [address] [place] [address] [id number] May, Dental examination Z01.20 [facility] [address] [id number] [address] [place] [address] May, Dental examination Z01.20 [facility] [address] [id number] [address] [place] [address] May, [facility] [address] [id number] [address] [place] [address] May, Generalized anxiety disorder F41.1 [facility] [address] [id number] [address] [place] [address] 05 May, 2017 Localized edema R60.0 ; Yeas t vaginitis B37.3 and Gastroesophageal reflux disease with esophagitis K21.0 [facility] [address] [id number] [address] [place] [address] [id number] Apr, Dental examination Z01.20 [facility] [address] [id number] [address] [place] [address] Apr, Dental examination Z01.20 [facility] [address] [id number] [address] [place] [address] 05 Apr, 2017 Dental examination Z01.20 [facility] [address] [id number] [address] [place] [address] Mar, Dyspepsia R10.13 [facility] [address] [id number] [address] [place] [address] Mar, Generalized anxiety disorder F41.1 [facility] [address] [id number] [address] [address] Mar, Encounter for dental examina tion Z01.20 [facility] [address] [id number] [address] [place] [address] [id number] Mar, [facility] [address] [id number] [address] [place] [address] [id number] Mar, Dental examination Z01.20 [facility] [address] [id number] [address] [place] [address] Feb, Hypertension I10 and Tachyca rdia R00.0 [facility] [address] [id number] [address] [address] Feb, [facility] [address] [id number] [address] [place] [address] Feb, Generalized anxiety disorder F41.1 [facility] [address] [id number] [address] [place] [id number] Feb, Dental examination Z01.20 [facility] [address] [id number] [address] [place] [address] Jan, Generalized anxiety disorder F41.1 [facility] [address] [id number] [address] [place] [address] December, Generalized anxiety disorder F41.1 [facility] [address] [id number] [address] [place] [address] [id number] December, Encounter for dental examina tion Z01.20 [facility] [address] [id number] [address] [place] [address] Nov, [facility] [address] [place] [address] Nov, [facility] [address] [address] Nov, Generalized anxiety disorder F41.1 [facility] [address] [place] [id number] [address] [place] [address] Oct, [facility] [address] [facility] [id number] [address] [place] [address] [id number] Oct, Dental examination Z01.20 [place] [address] [place] [id number] [address] [place] [address] Oct, Vaginal dryness N89.8 [place] [address] [place] [id number] [address] [place] [address] Oct, Pseudoseizures F44.5 [place] [address] [address] Oct, Generalized anxiety disorder F41.1 [facility] [address] [place] [address] 28 Sep, 2016 Abnormal uterine bleeding (A UB) N93.9 ; Vaginal dryness N89.8 and Screening breast examination Z12.39 [place] [address] [place] [id number] [address] [place] [address] Sep, Dental examination Z01.20 [place] [address] [place] [id number] [address] [place] [address] Sep, Generalized anxiety disorder F41.1 [facility] [address] [place] [id number] [address] [place] [address] 06 Sep, 2016 Unspecified ovarian cyst, ri ght side N83.201 ; Unspecified ovarian cyst, left side N83.202 ; Yeast infection of the vagina B37.3 ; Mitral valve prolapse I34.1 and Hypertension I10 [facility] [address] [place] [id number] [address] [place] [address] Aug, Generalized anxiety disorder F41.1 [facility] [address] [id number] [address] [place] [address] 28 Jul, 2016 [facility] [address] [facility] [id number] [address] [place] [address] Jul, Generalized anxiety disorder F41.1 [facility] [address] [facility] [id number] [address] [place] [address] Jun, Generalized anxiety disorder F41.1 [facility] [address] [facility] [id number] [address] [place] [address] 28 May, 2016 Encounter for immunization Z 23 [facility] [address] [facility] [id number] [address] [place] [phone] 17 May, 2016 Generalized anxiety disorder F41.1 and Depressive disorder, not elsewhere classified F32.9 [facility] [address] [facility] [id number] [address] [place] [address] 28 Apr, 2016 Hypertension I10 [facility] [address] [facility] [id number] [address] [place] [address] 22 Apr, 2016 Cervicalgia M54.2 [facility] [address] [facility] [id number] [address] [place] [address] Apr, Cervicalgia M54.2 [facility] [address] [facility] [id number] [address] [place] [phone] 09 Mar, 2016 Generalized anxiety disorder F41.1 and Depressive disorder, not elsewhere classified F32.9 [facility] [address] [id number] [address] [place] [address] [id number] 14 Feb, 2016 Visit for dental examination Z01.20 [facility] [address] [facility] [id number] [address] [place] [address] 11 Feb, 2016 Pseudoseizures F44.5 ; Migra ine without status migrainosus, not intractable, unspecified migraine type G43.909 and Essential hypertension I10 [facility] [address] [id number] [address] [place] [address] [id number] Feb, Dental examination Z01.20 [place] [address] [facility] [id number] [address] [place] [address] Feb, Generalized anxiety disorder F41.1 and Depressive disorder, not elsewhere classified F32.9 [place] [address] [id number] [address] [place] [address] Jan, Tachycardia R00.0 [place] [address] [id number] [address] [place] [address] December, Eustachian tube dysfunction, bilateral H69.83 [place] [address] [facility] [id number] [address] [place] [address] December, Generalized anxiety disorder F41.1 and Depressive disorder, not elsewhere classified F32.9 [place] [address] [facility] [id number] [address] [place] [address] Nov, [place] [address] [facility] [id number] [address] [place] [address] Nov, [place] [address] [facility] [id number] [address] [place] [address] Nov, Hypertension I10 ; Onychomyc osis B35.1 [...] cyst of left ovary N83.29 [place] [address] [facility] [id number] [address] [place] [address] 14 Nov, 2015 Sinusitis J32.9 [place] [address] [facility] [id number] [address] [place] [address] Oct, Complex cyst of left ovary N 83.29 [place] [address] [facility] [id number] [address] [place] [address] Oct, Onychomycosis B35.1 [facility] [address] [facility] [id number] [address] [place] [address] [id number] 17 Oct, 2015 Dental examination Z01.20 [facility] [address] [place] [id number] [address] [place] [address] 09 Oct, 2015 Well woman exam Z01.419 [...] History of colon polyps Z86.010 [place] [address] [place] [address] Oct, Generalized anxiety disorder F41.1 and Depressive disorder, not elsewhere classified F32.9 [place] [address] [place] [id number] [place] [phone] Sep, Hypertension I10 and Onychom ycosis B35.1 [place] [address] [address] [place] [id number] [place] [phone] Sep, Skin tags, multiple acquired L91.8 [place] [id number] [facility] [id number] [address] [place] [phone] Aug, [place] [address] [address] [facility] [id number] [address] [place] [phone] Aug, [place] [address] [address] [place] [id number] [place] [phone] Aug, [place] [address] [place] [id number] [place] [id number] Aug, Generalized anxiety disorder F41.1 and Depressive disorder, not elsewhere classified F32.9 [facility] [address] [id number] [address] [place] [id number] Jul, Skin lesion L98.9 [facility] [address] [id number] [address] [place] [phone] Jun, Generalized anxiety disorder F41.1 and Depressive disorder, not elsewhere classified F32.9 [facility] [address] [id number] [address] [place] [phone] Jun, [facility] [address] [id number] [address] [place] [address] Jun, Generalized anxiety disorder F41.1 [facility] [address] [facility] [id number] [address] [place] [address] May, Encounter for immunization Z 23 and Right shoulder pain M25.511 [facility] [address] [id number] [address] [place] [address] Apr, [facility] [address] [id number] [address] [place] [id number] 14 Apr, 2015 Generalized anxiety disorder 300.02 and Depressive disorder, not elsewhere classified 311 [facility] [address] [id number] [address] [place] [id number] Mar, Dental examination V72.2 [facility] [address] [id number] [address] [place] [address] Mar, Generalized anxiety disorder 300.02 and Depressive disorder, not elsewhere classified 311 [facility] [address] [id number] [address] [place] [address] Mar, Depression, major, recurrent , 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.35 and 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 [facility] [address] [id number] [address] [place] [address] Feb, Generalized anxiety disorder 300.02 and Depressive disorder, not elsewhere classified 311 [facility] [address] [id number] [address] [place] [id number] Feb, 2015 Dental examination V72.2 [facility] [address] [facility] [id number] [address] [place] [id number] 09 Jan, 2015 Generalized anxiety disorder 300.02 and Depressive disorder, not elsewhere classified 311 [facility] [address] [facility] [id number] [address] [place] [phone] Jan, [facility] [address] [facility] [id number] [address] [place] [phone] December, Generalized anxiety disorder 300.02 and Depressive disorder, not elsewhere classified 311 [facility] [address] [facility] [id number] [address] [place] [phone] December, Major depressive disorder, r ecurrent, unspecified 296.30 and Panic disorder with agoraphobia 300.21 [facility] [address] [facility] [id number] [address] [place] [phone] Nov, [facility] [address] [facility] [id number] [address] [place] [phone] Nov, [facility] [address] [facility] [id number] [address] [place] [phone] Oct, [facility] [address] [facility] [id number] [address] [place] [phone] Oct, [facility] [address] [facility] [id number] [address] [place] [phone] Oct, [facility] [address] [facility] [id number] [address] [place] [id number] Oct, [facility] [address] [facility] [id number] [address] [place] [phone] Sep, [facility] [address] [facility] [id number] [address] [place] [phone] Sep, [facility] [address] [facility] [id number] [address] [place] [phone] Sep, [facility] [address] [id number] [address] [place] [address], [place] [address] Sep, 2014 [facility] [address] [id number] [address] [place] [address], [place] [address] Sep, 2014 [facility] [address] [id number] [address] [place] [address], [place] [address] Sep, 2014 [facility] [address] [id number] [address] [place] [address], [place] [address] Sep, 2014 [facility] [address] [id number] [address] [place] [address], [place] [address] Sep, 2014 [facility] [address] [id number] [address] [place] [address], [place] [address] Sep, 2014 [facility] [address] [id number] [address] [place] [address], [place] [address] Sep, 2014 [facility] [address] [id number] [address] [place] [address], [place] [address] Aug, [facility] [address] [id number] [address] [place] [address], [place] [address] Aug, [facility] [address] [id number] [address] [place] [address], [place] [address] Jul, [facility] [address] [id number] [address] [place] [address], [place] [address] Jul, [facility] [address] [id number] [address] [place] [address], [place] [address] 18 Jul, 2014 [facility] [address] [id number] [address] [place] [address], [place] [address] 18 Jul, 2014 [facility] [address] [id number] [address] [place] [address], [place] [address] Jul, [facility] [address] [id number] [address] [place] [address], [place] [address] Jul, [facility] [address] [id number] [place] [address] Jul, [facility] [address] [id number] [address] [place] [address], [place] [address] Jul, [facility] [address] [id number] [address] [place] [address], [place] [address] Jul, [facility] [address] [id number] [address] [place] [address], [place] [address] Jul, [facility] [address] [id number] [address] [place] [address], [place] [address] Jul, [facility] [address] [id number] [address] [place] [address], [place] [address] Jul, [facility] [address] [id number] [address] [place] [address], [place] [address] Jun, [facility] [address] [id number] [address] [place] [address], [place] [address] Jun, [facility] [address] [id number] [address] [place] [address], [place] [address] May, [facility] [address] [id number] [address] [place] [address], [place] [address] May, [facility] [address] [id number] [address] [place] [address], [place] [address] May, [facility] [address] [id number] [address] [place] [id number] May, [facility] [address] [id number] [address] [place] [id number] May, [facility] [address] [id number] [address] [place] [address], [place] [address] May, [facility] [address] [id number] [address] [place] [address], [place] [address] May, [facility] [address] [id number] [address] [place] [phone] May, [facility] [address] [id number] [address] [place] [address], [place] [address] May, [facility] [address] [id number] [address] [place] [address], [place] [address] May, [facility] [address] [id number] [address] [place] [address], [place] [address] May, [facility] [address] [id number] [address] [place] [address], [place] [address] May, [facility] [address] [id number] [address] [place] [address], [place] [address] Apr, [facility] [address] [id number] [address] [place] [address], [place] [address] Apr, [facility] [address] [id number] [address] [place] [address], [place] [address] Apr, [facility] [address] [id number] [address] [place] [address], [place] [address] Apr, [facility] [address] [id number] [address] [place] [address], [place] [address] Apr, [facility] [address] [id number] [address] [place] [address], [place] [address] Apr, [facility] [address] [id number] [address] [place] [address], [place] [address] Feb, [facility] [address] [id number] [address] [place] [address], [place] [address] Feb, [facility] [address] [id number] [address] [place] [address], [place] [address] Feb, [facility] [address] [id number] [address] [place] [address], [place] [address] Feb, [facility] [address] [id number] [address] [place] [address], [place] [address] Feb, [facility] [address] [id number] [address] [place] [address], [place] [address] Feb, [facility] [address] [id number] [address] [place] [address], [place] [address] Jan, [facility] [address] [id number] [address] [place] [address], [place] [address] Jan, [facility] [address] [id number] [address] [place] [address], [place] [address] Jan, [facility] [address] [id number] [address] [place] [address], [place] [address] Jan, [facility] [address] [id number] [address] [place] [address], [place] [address] Jan, [facility] [address] [id number] [address] [place] [address], [place] [address] Jan, [facility] [address] [id number] [address] [place] [address], [place] [address] Jan, [facility] [address] [id number] [address] [place] [address], [place] [address] Jan, [facility] [address] [id number] [address] [place] [address], [place] [address] December, [facility] [address] [id number] [address] [place] [address], [place] [address] December, [facility] [address] [id number] [address] [place] [address], [place] [address] December, [facility] [address] [id number] [address] [place] [address], [place] [address] December, [facility] [address] [id number] [address] [place] [address], [place] [address] Nov, [facility] [address] [id number] [address] [place] [address], [place] [address] Nov, [facility] [address] [id number] [address] [place] [address], [place] [address] Nov, [facility] [address] [id number] [address] [place] [address], [place] [address] Nov, [facility] [address] [id number] [address] [place] [address], [place] [address] Nov, [facility] [address] [id number] [address] [place] [address], [place] [address] Nov, [facility] [address] [id number] [address] [place] [address], [place] [address] Nov, [facility] [address] [id number] [address] [place] [address], [place] [address] Nov, [facility] [address] [id number] [address] [place] [address], [place] [address] Oct, [facility] [address] [id number] [address] [place] [address], [place] [address] Oct, [facility] [address] [id number] [address] [place] [address], [place] [address] Sep, [facility] [address] [id number] [address] [place] [address], [place] [address] Sep, [facility] [address] [id number] [address] [place] [id number] Sep, [facility] [address] [id number] [address] [place] [address], [place] [address] Sep, [facility] [address] [id number] [address] [place] [address], [place] [address] Sep, [facility] [address] [id number] [address] [place] [address], [place] [address] Sep, [facility] [address] [id number] [address] [place] [address], [place] [address] Aug, [facility] [address] [id number] [address] [place] [address], [place] [address] Aug, [facility] [address] [id number] [address] [place] [address] Aug, [facility] [address] [id number] [address] [place] [address], [place] [address] Aug, [facility] [address] [id number] [address] [place] [address], [place] [address] Jul, [facility] [address] [id number] [address] [place] [address], [place] [address] Jul, [facility] [address] [id number] [address] [place] [address], [place] [address] Jul, [facility] [address] [id number] [address] [place] [address], [place] [address] Jul, [facility] [address] [id number] [address] [place] [address], [place] [address] Jun, [facility] [address] [id number] [address] [place] [address], [place] [address] Jun, [facility] [address] [id number] [address] [place] [address], [place] [address] May, [facility] [address] [id number] [address] [place] [address], [place] [address] May, [facility] [address] [id number] [address] [place] [address], [place] [address] May, [facility] [address] [id number] [address] [place] [address], [place] [address] May, [facility] [address] [id number] [address] [place] [address], [place] [address] May, [facility] [address] [id number] [address] [place] [address], [place] [address] 17 Apr, 2013 [facility] [address] [id number] [address] [place] [address], [place] [address] 10 Apr, 2013 [facility] [address] [id number] [address] [place] [address], [place] [address] 29 Mar, 2013 [facility] [address] [id number] [address] [place] [address], [place] [address] Mar, [facility] [address] [id number] [address] [place] [address], [place] [address] Mar, [facility] [address] [id number] [address] [place] [address], [place] [address] Mar, [facility] [address] [id number] [address] [place] [address], [place] [address] Feb, [facility] [address] [id number] [address] [place] [address], [place] [address] Feb, [facility] [address] [id number] [address] [place] [address], [place] [address] Feb, [facility] [address] [id number] [address] [place] [address], [place] [address] Feb, [facility] [address] [id number] [address] [place] [address], [place] [address] Feb, [facility] [address] [id number] [address] [place] [address], [place] [address] Jan, [facility] [address] [id number] [address] [place] [address], [place] [address] Jan, [facility] [address] [id number] [address] [place] [address], [place] [address] Jan, [facility] [address] [id number] [address] [place] [address], [place] [address] Jan, [facility] [address] [id number] [address] [place] [address], [place] [address] Jan, [facility] [address] [id number] [address] [place] [address], [place] [address] December, [facility] [address] [id number] [address] [place] [address], [place] [address] December, [facility] [address] [id number] [address] [place] [address], [place] [address] Nov, [facility] [address] [id number] [address] [place] [address], [place] [address] 02 Nov, 2012 [facility] [address] [id number] [address] [place] [address], [place] [address] 19 Oct, 2012 [facility] [address] [id number] [address] [place] [address], [place] [address] 13 Oct, 2012 [facility] [address] [id number] [address] [place] [address], [place] [address] 05 Oct, 2012 [facility] [address] [id number] [address] [place] [address], [place] [address] 14 Sep, 2012 [facility] [address] [id number] [address] [place] [address], [place] [address] 24 Aug, 2012 [facility] [address] [id number] [address] [place] [address], [place] [address] 16 Aug, 2012 [facility] [address] [id number] [address] [place] [address], [place] [address] 15 Aug, 2012 [facility] [address] [id number] [address] [place] [address], [place] [address] Aug, [facility] [address] [id number] [address] [place] [address], [place] [address] Jul, [facility] [address] [id number] [address] [place] [address], [place] [address] Jul, [facility] [address] [id number] [address] [place] [address], [place] [address] Jul, [facility] [address] [id number] [address] [place] [address], [place] [address] Jul, [facility] [address] [id number] [address] [place] [address], [place] [address] Jul, [facility] [address] [id number] [address] [place] [address], [place] [address] Jul, [facility] [address] [id number] [address] [place] [address], [place] [address] Jul, [facility] [address] [id number] [address] [place] [address], [place] [address] Jul, [facility] [address] [id number] [address] [place] [address], [place] [address] Jun, [facility] [address] [id number] [address] [place] [address], [place] [address] Jun, [facility] [address] [id number] [address] [place] [address], [place] [address] Jun, [facility] [address] [id number] [address] [place] [address], [place] [address] Jun, [facility] [address] [id number] [address] [place] [address], [place] [address] Jun, [facility] [address] [id number] [address] [place] [address], [place] [address] Jun, [facility] [address] [id number] [address] [place] [address], [place] [address] May, [facility] [address] [id number] [address] [place] [address], [place] [address] May, [facility] [address] [id number] [address] [place] [address], [place] [address] May, [facility] [address] [id number] [address] [place] [address], [place] [address] May, [facility] [address] [id number] [address] [place] [address], [place] [address] Apr, [facility] [address] [id number] [address] [place] [address], [place] [address] Apr, [facility] [address] [id number] [address] [place] [address], [place] [address] Mar, [facility] [address] [id number] [address] [place] [address], [place] [address] Jan, [facility] [address] [id number] [address] [place] [address] [place] [address] 20 Jan, 2012 [facility] [address] [id number] [address] [place] [address], [place] [address] 16 Jan, 2012 [facility] [address] [id number] [address] [place] [address], [place] [address] 15 Jan, 2012 [facility] [address] [id number] [address] [place] [address], [place] [address] 14 Jan, 2012 [facility] [address] [id number] [address] [place] [address], [place] [address] 14 Jan, 2012 [facility] [address] [id number] [address] [place] [address], [place] [address] 07 Jan, 2012 [facility] [address] [id number] [address] [place] [address], [place] [address] December, [facility] [address] [id number] [address] [place] [address], [place] [address] December, [facility] [address] [id number] [address] [place] [address], [place] [address] December, [facility] [address] [id number] [address] [place] [address], [place] [address] December, [facility] [address] [id number] [address] [place] [address], [place] [address] Nov, [facility] [address] [id number] [address] [place] [address], [place] [address] 05 Nov, 2011 [facility] [address] [id number] [address] [place] [address], [place] [address] 29 Oct, 2011 [facility] [address] [id number] [address] [place] [address], [place] [address] 28 Oct, 2011 [facility] [address] [id number] [address] [place] [address], [place] [address] 15 Oct, 2011 [facility] [address] [id number] [address] [place] [address], [place] [address] Sep, [facility] [address] [id number] [address] [place] [address], [place] [address] Sep, [facility] [address] [id number] [address] [place] [address], [place] [address] Sep, [facility] [address] [id number] [address] [place] [address], [place] [address] Aug, [facility] [address] [id number] [address] [place] [address], [place] [address] Aug, [facility] [address] [id number] [address] [place] [address], [place] [address] Aug, [facility] [address] [id number] [address] [place] [address], [place] [address] Aug, [facility] [address] [id number] [address] [place] [address], [place] [address] Aug, [facility] [address] [id number] [address] [place] [address], [place] [address] Aug, [facility] [address] [id number] [address] [place] [address], [place] [address] Aug, [facility] [address] [id number] [address] [place] [address], [place] [address] Jul, [facility] [address] [id number] [address] [place] [address], [place] [address] Jul, [facility] [address] [id number] [address] [place] [address], [place] [address] Jun, [facility] [address] [id number] 24 [place] [address], [place] [address] Jun, [facility] [address] [id number] [address] [place] [address], [place] [id number] 17 Jun, 2011 [facility] [address] [id number] [address] [place] [address], [place] [address] 15 Jun, 2011 [facility] [address] [id number] [address] [place] [address], [place] [id number] 14 Jun, 2011 [facility] [address] [id number] [address] [place] [address], [place] [address] 14 Jun, 2011 [facility] [address] [id number] [address] [place] [address], [place] [id number] 07 Jun, 2011 [facility] [address] [id number] [address] [place] [address], [place] [address] Jun, [facility] [address] [id number] [address] [place] [phone] Jun, [facility] [address] [id number] [address] [place] [address], [place] [address] Jun, [facility] [address] [id number] [address] [place] [address], [place] [address] May, [facility] [address] [id number] [address] [place] [address], [place] [address] May, [facility] [address] [id number] [address] [place] [address], [place] [address] May, [facility] [address] [id number] [address] [place] [id number] 24 May, 2011 [facility] [address] [id number] [address] [place] [address], [place] [address] May, [facility] [address] [id number] [address] [place] [phone] May, [facility] [address] [id number] [address] [place] [phone] Feb, [facility] [address] [id number] [address] [place] [address], [place] [address] December, [facility] [address] [id number] [address] [place] [address], [place] [address] Jul, [facility] [address] [id number] [address] [place] [address], [place] [address] Jul, [facility] [address] [id number] [address] [place] [id number] Jul, [facility] [address] [id number] [address] [place] [id number] Jul, [facility] [address] [id number] [address] [place] [id number] Jun, [facility] [address] [id number] [address] [place] [phone] Jul, [facility] [address] [id number] [address] [place] [id number] Jul, [facility] [address] [id number] [address] [place] [phone] Jul, [facility] [address] [id number] [address] [place] [phone] Jul, [facility] [address] [id number] [address] [place] [phone] Jul, [facility] [address] [id number] [address] [place] [id number] Jul, [facility] [address] [id number] [address] [place] [phone] Jan, [facility] [address] [id number] [address] [place] [id number] Sep, [facility] [address] [id number] [address] [place] [id number] Sep, IMMUNIZATIONS No Known Immunizations SOCIAL HISTORY [...]
--- OUTSIDE RECORDS SUMMARY | 2020-01-27 10:13 | XMS REPORT ---
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 Name Role Phone LETTY WILKINS Unavailable PROBLEMS Type Condition ICD9-CM Code [id number] Code Onset Dates Condition S tatus SNOMED Code Problem Hypertension I10 Active 3233834 3 Problem Generalized anxiety disorder F41.1 A ctive 362402651 Problem History of colon polyps Z86.010 Active 754804942 Problem History of diverticulitis Z87.19 Acti ve [id number] Problem Family history of diabetes mellitus Z83.3 Active 117253773 Problem Excessive and frequent menstruation with irregular cycle N92.1 Active 991370141 Problem Hot flashes N95.1 Active 25771316 8 Problem Gastroesophageal reflux disease with esophagitis K 21.0 Active 303961701 Problem History of ovarian cyst Z87.42 Active 61838157 Problem Diverticulitis K57.92 Active 72443 6006 Problem Dense breast tissue R92.2 Active 267782469 Problem Perimenopausal N95.1 Active 22768 4856523327 Problem Mitral valve prolapse I34.1 Active 807015319 Problem Abnormal uterine bleeding (AUB) N93.9 Active 91285530895477 Problem Tachycardia R00.0 Active 5710516 ALLERGIES No Information ENCOUNTERS Encounter Location Date Diagnosis [facility] [address] [facility] [id number] [address] [place] [address] May, [facility] [address] [id number] [address] [place] [address] May, [facility] [address] [facility] [id number] [address] [place] [address] Apr, [facility] [address] [id number] [address] [place] [address] Mar, Caries K02.9 ; Dental examin ation Z01.20 ; Periodontitis K05.30 and Oral health maintenance status requiring routine preventive dental care K08.9 [facility] [address] [id number] [address] [place] [address] Mar, Generalized anxiety disorder F41.1 [facility] [address] [facility] [id number] [address] [place] [address] Mar, Gastrointestinal hemorrhage associated with gastroduodenitis K29.91 [facility] [address] [id number] [address] [place] [address] Mar, Generalized anxiety disorder F41.1 and Bereavement Z63.4 [facility] [address] [facility] [id number] [address] [place] [address] Mar, [facility] [address] [facility] [id number] [address] [place] [address] Mar, [facility] [address] [facility] [id number] [address] [place] [address] Mar, [facility] [address] [facility] [id number] [address] [place] [address] Mar, Tachycardia R00.0 and Essent ial hypertension I10 [facility] [address] [facility] [id number] [address] [place] [address] Feb, Generalized anxiety disorder F41.1 [facility] [address] [facility] [id number] [address] [place] [address] Feb, Generalized anxiety disorder F41.1 and Bereavement Z63.4 [facility] [address] [facility] [id number] [address] [place] [address] Feb, Generalized anxiety disorder F41.1 [facility] [address] [facility] [id number] [address] [place] [address] Feb, Generalized anxiety disorder F41.1 and Bereavement Z63.4 [facility] [address] [facility] [id number] [address] [place] [address] 27 Jan, 2019 [facility] [address] [id number] [address] [place] [phone] 20 Jan, 2019 Breast cancer screening by trenton crenshaw Z12.31 [facility] [address] [facility] [id number] [address] [place] [address] 13 Jan, 2019 Generalized anxiety disorder F41.1 and Bereavement Z63.4 [facility] [address] [facility] [id number] [address] [place] [address] Jan, [facility] [address] [facility] [id number] [address] [place] [address] December, Generalized anxiety disorder F41.1 and Bereavement Z63.4 [place] [address] [facility] [id number] [address] [place] [address] December, Diverticulitis K57.92 ; Dysu nick R30.0 ; Other constipation K59.09 and Lower abdominal pain R10.30 [facility] [address] [facility] [id number] [address] [place] [address] Nov, Diverticulitis K57.92 [place] [address] [facility] [id number] [address] [place] [address] Nov, Generalized anxiety disorder F41.1 and Bereavement Z63.4 [facility] [address] [facility] [id number] [address] [place] [address] Nov, Generalized anxiety disorder F41.1 and Bereavement Z63.4 [facility] [address] [facility] [id number] [address] [place] [address] Nov, Diverticulitis K57.92 [facility] [address] [facility] [id number] [address] [place] [address] Oct, Diverticulitis K57.92 [facility] [address] [facility] [id number] [address] [place] [address] Oct, Diverticulitis K57.92 [facility] [address] [facility] [id number] [address] [place] [address] Oct, Generalized anxiety disorder F41.1 [facility] [address] [facility] [id number] [address] [place] [address] Oct, Right lower quadrant abdomin al pain R10.31 and Diverticulitis K57.92 [facility] [address] [facility] [id number] [address] [place] [address] Sep, Generalized anxiety disorder F41.1 and Bereavement Z63.4 [facility] [address] [facility] [id number] [address] [place] [address] Aug, [facility] [address] [facility] [id number] [address] [place] [address] Aug, Generalized anxiety disorder F41.1 and Bereavement Z63.4 [facility] [address] [facility] [id number] [address] [address] Aug, Caries K02.9 [facility] [address] [facility] [id number] [address] [place] [address] Jul, Generalized anxiety disorder F41.1 and Bereavement Z63.4 [facility] [address] [facility] [id number] [address] [place] [address] Jul, Other acute gastritis withou t hemorrhage K29.00 ; Generalized anxiety disorder F41.1 ; Tachycardia R00.0 and Essential hypertension I10 [facility] [address] [facility] [id number] [address] [place] [address] Jul, Generalized anxiety disorder F41.1 and Bereavement Z63.4 [facility] [address] [facility] [id number] [address] [place] [address] Jun, Generalized anxiety disorder F41.1 and Bereavement Z63.4 [facility] [address] [facility] [id number] [address] [place] [address] Jun, Generalized anxiety disorder F41.1 and Bereavement Z63.4 [facility] [address] [id number] [address] [address] Jun, Dental examination Z01.20 [facility] [address] [facility] [id number] [address] [place] [address] May, Generalized anxiety disorder F41.1 and Bereavement Z63.4 [facility] [address] [facility] [id number] [address] [place] [address] May, Encounter for immunization Z 23 [facility] [address] [facility] [id number] [address] [place] [address] May, Generalized anxiety disorder F41.1 and Bereavement Z63.4 [facility] [address] [facility] [id number] [address] [place] [address] May, [facility] [address] [facility] [id number] [address] [place] [address] 24 Apr, 2018 Generalized anxiety disorder F41.1 and Bereavement Z63.4 [facility] [address] [facility] [id number] [address] [place] [address] 17 Apr, 2018 [facility] [address] [facility] [id number] [address] [place] [address] 13 Apr, 2018 Diverticulitis K57.92 [facility] [address] [facility] [id number] [address] [place] [address] 10 Apr, 2018 Generalized anxiety disorder F41.1 and Bereavement Z63.4 [facility] [address] [facility] [id number] [address] [place] [address] Mar, [facility] [address] [facility] [id number] [address] [place] [address] Mar, Diverticulitis K57.92 [facility] [address] [facility] [id number] [address] [place] [address] Mar, Generalized anxiety disorder F41.1 and Bereavement Z63.4 [place] [address] [id number] [address] [place] [address] Mar, Hypertension I10 [facility] [address] [id number] [address] [place] [address] Mar, Generalized anxiety disorder F41.1 and Bereavement Z63.4 [facility] [address] [id number] [address] [place] [address] Feb, Generalized anxiety disorder F41.1 and Bereavement Z63.4 [facility] [address] [id number] [address] [place] [address] Feb, [facility] [address] [id number] [address] [place] [address] Feb, Generalized anxiety disorder F41.1 and Bereavement Z63.4 [facility] [address] [id number] [address] [place] [address] Feb, Generalized anxiety disorder F41.1 and Bereavement Z63.4 [facility] [address] [id number] [address] [place] [address] Jan, Hypertension I10 and Acute n on-recurrent maxillary sinusitis J01.00 [facility] [address] [id number] [address] [place] [address] December, [facility] [address] [id number] [address] [place] [address] December, Hypertension I10 [facility] [address] [id number] [address] [place] [address] December, Generalized anxiety disorder F41.1 [facility] [address] [id number] [address] [address] Oct, Encounter for dental examina tion Z01.20 [facility] [address] [id number] [address] [address] 06 Oct, 2017 Encounter for dental examina tion Z01.20 [facility] [address] [id number] [address] [address] 02 Oct, 2017 Dental examination Z01.20 [facility] [address] [id number] [address] [place] [address] Oct, Generalized anxiety disorder F41.1 [facility] [address] [id number] [address] [address] Aug, Dental examination Z01.20 [facility] [address] [id number] [address] [place] [address] Aug, Generalized anxiety disorder F41.1 [facility] [address] [id number] [address] [place] [address] Aug, [facility] [address] [id number] [address] [address] Aug, Encounter for dental examina tion Z01.20 [facility] [address] [id number] [address] [place] [address] Aug, Subacute maxillary sinusitis J01.00 [facility] [address] [id number] [address] [place] [address] 22 Jul, 2017 Dental examination Z01.20 [facility] [address] [id number] [address] [place] [address] Jul, Generalized anxiety disorder F41.1 [facility] [address] [id number] [address] [place] [address] 11 Jul, 2017 Diverticulitis K57.92 [facility] [address] [id number] [address] [place] [address] 28 Jun, 2017 Encounter for immunization Z 23 [facility] [address] [id number] [address] [address] 22 Jun, 2017 Dental examination Z01.20 [facility] [address] [id number] [address] [place] [address] Jun, Generalized anxiety disorder F41.1 [facility] [address] [id number] [address] [place] [address] Jun, Dental examination Z01.20 [facility] [address] [id number] [address] [place] [address] May, [facility] [address] [id number] [address] [place] [id number] May, Dental examination Z01.20 [facility] [address] [id number] [address] [place] [id number] May, Dental examination Z01.20 [facility] [address] [id number] [address] [place] [address] May, Dental examination Z01.20 [facility] [address] [id number] [address] [place] [address] May, [facility] [address] [id number] [address] [place] [address] May, Generalized anxiety disorder F41.1 [facility] [address] [id number] [address] [place] [address] May, Localized edema R60.0 ; Yeas t vaginitis B37.3 and Gastroesophageal reflux disease with esophagitis K21.0 [facility] [address] [id number] [address] [place] [address] [id number] Apr, Dental examination Z01.20 [facility] [address] [id number] [address] [place] [address] Apr, Dental examination Z01.20 [facility] [address] [id number] [address] [place] [address] Apr, Dental examination Z01.20 [facility] [address] [id number] [address] [place] [address] Mar, Dyspepsia R10.13 [facility] [address] [id number] [address] [place] [address] Mar, Generalized anxiety disorder F41.1 [facility] [address] [id number] [address] [address] Mar, Encounter for dental examina tion Z01.20 [facility] [address] [id number] [address] [place] [address] [id number] Mar, [facility] [address] [id number] [address] [place] [address] [id number] Mar, Dental examination Z01.20 [facility] [address] [id number] [address] [place] [address] Feb, Hypertension I10 and Tachyca rdia R00.0 [facility] [address] [id number] [address] [address] Feb, [facility] [address] [id number] [address] [place] [address] Feb, Generalized anxiety disorder F41.1 [facility] [address] [id number] [address] [place] [address] [id number] Feb, Dental examination Z01.20 [facility] [address] [id number] [address] [place] [address] Jan, Generalized anxiety disorder F41.1 [facility] [address] [id number] [address] [place] [address] December, Generalized anxiety disorder F41.1 [facility] [address] [id number] [address] [place] [address] [id number] December, Encounter for dental examina tion Z01.20 [facility] [address] [id number] [address] [place] [address] Nov, [facility] [address] [id number] [address] [place] [address] Nov, [facility] [address] [id number] [address] [place] [address] Nov, Generalized anxiety disorder F41.1 [facility] [address] [facility] [id number] [address] [place] [address] 30 Oct, 2016 [facility] [address] [facility] [id number] [address] [place] [address] [id number] Oct, Dental examination Z01.20 [facility] [address] [place] [id number] [address] [place] [address] Oct, Vaginal dryness N89.8 [facility] [address] [facility] [id number] [address] [place] [address] Oct, Pseudoseizures F44.5 [facility] [address] [place] [id number] [address] [place] [address] Oct, Generalized anxiety disorder F41.1 [facility] [address] [place] [address] Sep, Abnormal uterine bleeding (A UB) N93.9 ; Vaginal dryness N89.8 and Screening breast examination Z12.39 [facility] [id number] [place] [address] Sep, Dental examination Z01.20 [facility] [address] [place] [id number] [address] [place] [address] Sep, Generalized anxiety disorder F41.1 [facility] [address] [place] [id number] [address] [place] [address] 06 Sep, 2016 Unspecified ovarian cyst, ri ght side N83.201 ; Unspecified ovarian cyst, left side N83.202 ; Yeast infection of the vagina B37.3 ; Mitral valve prolapse I34.1 and Hypertension I10 [facility] [address] [place] [id number] [address] [place] [address] Aug, Generalized anxiety disorder F41.1 [facility] [address] [place] [id number] [address] [place] [address] Jul, [place] [address] [facility] [id number] [address] [place] [address] Jul, Generalized anxiety disorder F41.1 [facility] [address] [facility] [id number] [address] [place] [address] 15 Jun, 2016 Generalized anxiety disorder F41.1 [facility] [address] [facility] [id number] [address] [place] [address] 28 May, 2016 Encounter for immunization Z 23 [facility] [address] [facility] [id number] [address] [place] [address] 17 May, 2016 Generalized anxiety disorder F41.1 and Depressive disorder, not elsewhere classified F32.9 [facility] [address] [facility] [id number] [address] [place] [phone] 28 Apr, 2016 Hypertension I10 [facility] [address] [facility] [id number] [address] [place] [address] 22 Apr, 2016 Cervicalgia M54.2 [facility] [address] [facility] [id number] [address] [place] [address] 12 Apr, 2016 Cervicalgia M54.2 [facility] [address] [facility] [id number] [address] [place] [address] 09 Mar, 2016 Generalized anxiety disorder F41.1 and Depressive disorder, not elsewhere classified F32.9 [facility] [id number] [place] [address] [id number] 14 Feb, 2016 Visit for dental examination Z01.20 [facility] [address] [facility] [id number] [address] [place] [address] 11 Feb, 2016 Pseudoseizures F44.5 ; Migra ine without status migrainosus, not intractable, unspecified migraine type G43.909 and Essential hypertension I10 [facility] [address] [place] [id number] [address] [place] [address] [id number] 06 Feb, 2016 Dental examination Z01.20 [facility] [address] [facility] [id number] [address] [place] [phone] 05 Feb, 2016 Generalized anxiety disorder F41.1 and Depressive disorder, not elsewhere classified F32.9 [facility] [address] [facility] [id number] [address] [place] [phone] Jan, Tachycardia R00.0 [facility] [address] [facility] [id number] [address] [place] [phone] December, Eustachian tube dysfunction, bilateral H69.83 [facility] [address] [facility] [id number] [address] [place] [phone] December, Generalized anxiety disorder F41.1 and Depressive disorder, not elsewhere classified F32.9 [facility] [address] [facility] [id number] [address] [place] [phone] Nov, [facility] [address] [facility] [id number] [address] [place] [phone] Nov, [place] [address] [facility] [id number] [address] [place] [phone] Nov, Hypertension I10 ; Onychomyc osis B35.1 [...] and Complex cyst of left ovary N83.29 [facility] [address] [facility] [id number] [address] [place] [phone] 14 Nov, 2015 Sinusitis J32.9 [facility] [address] [facility] [id number] [address] [place] [phone] Oct, Complex cyst of left ovary N 83.29 [facility] [address] [facility] [id number] [address] [place] [phone] Oct, Onychomycosis B35.1 [facility] [address] [id number] [address] [place] [id number] 17 Oct, 2016 Dental examination Z01.20 [place] [address] [place] [id number] [place] [phone] 09 Oct, 2016 Well woman exam Z01.419 [...] R92.2 and History of colon polyps Z86.010 [place] [address] [place] [id number] [address] [place] [phone] Oct, Generalized anxiety disorder F41.1 and Depressive disorder, not elsewhere classified F32.9 [place] [address] [phone] Sep, Hypertension I10 and Onychom ycosis B35.1 [place] [address] [phone] 16 Sep, 2015 Skin tags, multiple acquired L91.8 [place] [address] [place] [id number] [address] [place] [phone] Aug, [place] [address] [place] [id number] [address] [place] [id number] Aug, [place] [address] [place] [id number] [address] [place] [id number] Aug, [place] [address] [place] [id number] [place] [id number] Aug, Generalized anxiety disorder F41.1 and Depressive disorder, not elsewhere classified F32.9 [place] [address] [place] [id number] [address] [place] [id number] Jul, Skin lesion L98.9 [facility] [address] [id number] [address] [place] [id number] Jun, Generalized anxiety disorder F41.1 and Depressive disorder, not elsewhere classified F32.9 [facility] [address] [id number] [address] [place] [id number] Jun, [facility] [address] [id number] [address] [place] [id number] Jun, Generalized anxiety disorder F41.1 [facility] [address] [id number] [address] [place] [id number] May, Encounter for immunization Z 23 and Right shoulder pain M25.511 [facility] [address] [id number] [address] [place] [id number] Apr, [facility] [address] [id number] [address] [place] [id number] 14 Apr, 2015 Generalized anxiety disorder 300.02 and Depressive disorder, not elsewhere classified 311 [facility] [address] [id number] [address] [place] [id number] Mar, Dental examination V72.2 [facility] [address] [id number] [address] [place] [id number] Mar, Generalized anxiety disorder 300.02 and Depressive disorder, not elsewhere classified 311 [facility] [address] [id number] [address] [place] [id number] Mar, Depression, major, recurrent , 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.35 and 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 [facility] [address] [id number] [address] [place] [address] Feb, Generalized anxiety disorder 300.02 and Depressive disorder, not elsewhere classified 311 [facility] [address] [id number] [address] [place] [address] [id number] Feb, Dental examination V72.2 [facility] [address] [id number] [address] [place] [phone] Jan, Generalized anxiety disorder 300.02 and Depressive disorder, not elsewhere classified 311 [facility] [address] [id number] [address] [place] [id number] Jan, [facility] [address] [facility] [id number] [address] [place] [phone] December, Generalized anxiety disorder 300.02 and Depressive disorder, not elsewhere classified 311 [facility] [address] [facility] [id number] [address] [place] [id number] December, Major depressive disorder, r ecurrent, unspecified 296.30 and Panic disorder with agoraphobia 300.21 [facility] [address] [facility] [id number] [address] [place] [id number] Nov, [facility] [address] [facility] [id number] [address] [place] [id number] Nov, [facility] [address] [facility] [id number] [address] [place] [phone] Oct, [facility] [address] [facility] [id number] [address] [place] [id number] Oct, [facility] [address] [facility] [id number] [address] [place] [id number] Oct, [facility] [address] [facility] [id number] [address] [place] [id number] Oct, [facility] [address] [facility] [id number] [address] [place] [id number] Sep, [facility] [address] [facility] [id number] [address] [place] [id number] Sep, [facility] [address] [facility] [id number] [address] [place] [id number] Sep, [facility] [address] [facility] [id number] [address] [place] [id number] Sep, [facility] [address] [facility] [id number] [address] [place] [phone] Sep, 2014 [facility] [address] [id number] [address] [place] [address], [place] [address] Sep, 2014 [facility] [address] [id number] [address] [place] [address], [place] [address] Sep, 2014 [facility] [address] [id number] [address] [place] [address], [place] [address] Sep, 2014 [facility] [address] [id number] [address] [place] [address], [place] [address] Sep, 2014 [facility] [address] [id number] [address] [place] [address], [place] [address] Sep, [facility] [address] [id number] [address] [place] [address], [place] [address] Aug, [facility] [address] [id number] [address] [place] [address], [place] [address] Aug, [facility] [address] [id number] [address] [place] [address], [place] [address] Jul, [facility] [address] [id number] [address] [place] [address], [place] [address] Jul, [facility] [address] [id number] [address] [place] [address], [place] [address] 18 Jul, 2014 [facility] [address] [id number] [address] [place] [address], [place] [address] 18 Jul, 2014 [facility] [address] [id number] [address] [place] [address], [place] [address] Jul, [facility] [address] [id number] [address] [place] [address], [place] [address] Jul, [facility] [address] [id number] [address] [place] [address], [place] [address] 05 Jul, 2014 [facility] [address] [id number] [address] [place] [address], [place] [address] 05 Jul, 2014 [facility] [address] [id number] [address] [place] [address], [place] [address] Jul, [facility] [address] [id number] [address] [place] [address], [place] [address] Jul, [facility] [address] [id number] [address] [place] [address], [place] [address] Jul, [facility] [address] [id number] [address] [place] [address], [place] [address] Jul, [facility] [address] [id number] [address] [place] [address], [place] [address] Jun, [facility] [address] [id number] [address] [place] [address], [place] [address] Jun, [facility] [address] [id number] [address] [place] [address], [place] [address] May, [facility] [address] [id number] [address] [place] [address], [place] [address] May, [facility] [address] [id number] [address] [place] [address], [place] [address] May, [facility] [address] [id number] [address] [place] [address], [place] [address] May, [facility] [address] [id number] [address] [place] [address], [place] [address] May, [facility] [address] [id number] [address] [place] [address], [place] [address] May, [facility] [address] [id number] [address] [place] [address], [place] [address] May, [facility] [address] [id number] [address] [place] [address], [place] [address] May, [facility] [address] [id number] [address] [place] [address], [place] [address] May, [facility] [address] [id number] [address] [place] [address], [place] [address] May, [facility] [address] [id number] [address] [place] [address], [place] [address] May, [facility] [address] [id number] [address] [place] [address], [place] [address] May, [facility] [address] [id number] [address] [place] [address], [place] [address] Apr, [facility] [address] [id number] [address] [place] [address], [place] [address] 30 Apr, 2014 [facility] [address] [id number] [address] [place] [address], [place] [address] Apr, [facility] [address] [id number] [address] [place] [address], [place] [address] Apr, [facility] [address] [id number] [address] [place] [address], [place] [address] Apr, [facility] [address] [id number] [address] [place] [address], [place] [address] Apr, [facility] [address] [id number] [address] [place] [address], [place] [address] Feb, [facility] [address] [id number] [address] [place] [address], [place] [address] Feb, [facility] [address] [id number] [address] [place] [address], [place] [address] Feb, [facility] [address] [id number] [address] [place] [address], [place] [address] Feb, [facility] [address] [id number] [address] [place] [address], [place] [address] Feb, [facility] [address] [id number] [address] [place] [address], [place] [address] Feb, [facility] [address] [id number] [address] [place] [address], [place] [address] Jan, [facility] [address] [id number] [address] [place] [id number] Jan, [facility] [address] [id number] [facility] [place] [address] Jan, [facility] [address] [id number] [address] [place] [address], [place] [address] Jan, [facility] [address] [id number] [address] [place] [address], [place] [address] Jan, [facility] [address] [id number] [address] [place] [address], [place] [address] Jan, [facility] [address] [id number] [address] [place] [address], [place] [address] Jan, [facility] [address] [id number] [address] [place] [address], [place] [address] Jan, [facility] [address] [id number] [address] [place] [address], [place] [address] December, [facility] [address] [id number] [address] [place] [address], [place] [address] December, [facility] [address] [id number] [address] [place] [address], [place] [address] December, [facility] [address] [id number] [address] [place] [address], [place] [address] December, [facility] [address] [id number] [address] [place] [address], [place] [address] Nov, [facility] [address] [id number] [address] [place] [address], [place] [address] Nov, [facility] [address] [id number] [address] [place] [address], [place] [address] Nov, [facility] [address] [id number] [address] [place] [address], [place] [address] Nov, [facility] [address] [id number] [address] [place] [address], [place] [address] Nov, [facility] [address] [id number] [address] [place] [address], [place] [address] Nov, [facility] [address] [id number] [address] [place] [address], [place] [address] Nov, [facility] [address] [id number] [address] [place] [address], [place] [address] Nov, [facility] [address] [id number] [address] [place] [address], [place] [address] Oct, [facility] [address] [id number] [address] [place] [address], [place] [address] Oct, [facility] [address] [id number] [address] [place] [address], [place] [address] Sep, [facility] [address] [id number] [address] [place] [address], [place] [address] Sep, [facility] [address] [id number] [address] [place] [address], [place] [id number] Sep, [facility] [address] [id number] [address] [place] [address], [place] [address] Sep, [facility] [address] [id number] [address] [place] [address], [place] [address] Sep, [facility] [address] [id number] [address] [place] [address], [place] [address] Sep, [facility] [address] [id number] [address] [place] [address], [place] [address] Aug, [facility] [address] [id number] [address] [place] [address], [place] [address] Aug, [facility] [address] [id number] [address] [place] [address], [place] [address] Aug, [facility] [address] [id number] [address] [place] [address], [place] [address] Aug, [facility] [address] [id number] [address] [place] [address], [place] [address] Jul, [facility] [address] [id number] [address] [place] [address], [place] [address] Jul, [facility] [address] [id number] [address] [place] [address], [place] [address] Jul, [facility] [address] [id number] [address] [place] [address], [place] [address] Jul, [facility] [address] [id number] [address] [place] [address] Jun, [facility] [address] [id number] [address] [place] [address], [place] [address] Jun, [facility] [address] [id number] [address] [place] [address], [place] [address] May, [facility] [address] [id number] [address] [place] [address], [place] [address] May, [facility] [address] [id number] [address] [place] [address], [place] [address] May, [facility] [address] [id number] [address] [place] [address], [place] [address] May, [facility] [address] [id number] [address] [place] [address], [place] [address] May, [facility] [address] [id number] [address] [place] [address], [place] [address] 17 Apr, 2013 [facility] [address] [id number] [address] [place] [address] 10 Apr, 2013 [facility] [address] [id number] [address] [place] [address], [place] [address] 29 Mar, 2013 [facility] [address] [id number] [address] [place] [address], [place] [address] Mar, [facility] [address] [id number] [address] [place] [address], [place] [address] 15 Mar, 2013 [facility] [address] [id number] [address] [place] [address], [place] [address] Mar, [facility] [address] [id number] [address] [place] [address], [place] [address] Feb, [facility] [address] [id number] [address] [place] [address], [place] [address] Feb, [facility] [address] [id number] [address] [place] [address], [place] [address] Feb, [facility] [address] [id number] [address] [place] [address], [place] [address] Feb, [facility] [address] [id number] [address] [place] [address], [place] [address] Feb, [facility] [address] [id number] [address] [place] [address], [place] [address] Jan, [facility] [address] [id number] [address] [place] [address], [place] [address] Jan, [facility] [address] [id number] [address] [place] [address], [place] [address] Jan, [facility] [address] [id number] [address] [place] [address], [place] [address] Jan, [facility] [address] [id number] [address] [place] [address], [place] [address] Jan, [facility] [address] [id number] [address] [place] [address], [place] [address] December, [facility] [address] [id number] [address] [place] [address], [place] [address] December, [facility] [address] [id number] [address] [place] [address], [place] [address] Nov, [facility] [address] [id number] [address] [place] [address], [place] [address] Nov, [facility] [address] [id number] [address] [place] [address], [place] [address] Oct, [facility] [address] [id number] [address] [place] [address], [place] [address] 13 Oct, 2012 [facility] [address] [id number] [address] [place] [address], [place] [address] 05 Oct, 2012 [facility] [address] [id number] [address] [place] [address], [place] [address] 14 Sep, 2012 [facility] [address] [id number] [address] [place] [address], [place] [address] 24 Aug, 2012 [facility] [address] [id number] [address] [place] [address], [place] [address] 16 Aug, 2012 [facility] [address] [id number] [address] [place] [address], [place] [address] 15 Aug, 2012 [facility] [address] [id number] [address] [place] [address], [place] [address] Aug, [facility] [address] [id number] [address] [place] [address], [place] [address] Jul, [facility] [address] [id number] [address] [place] [address], [place] [address] Jul, [facility] [address] [id number] [address] [place] [address], [place] [address] Jul, [facility] [address] [id number] [address] [place] [address], [place] [address] Jul, [facility] [address] [id number] [address] [place] [address], [place] [address] Jul, [facility] [address] [id number] [address] [place] [address], [place] [address] Jul, [facility] [address] [id number] [address] [place] [address], [place] [address] Jul, [facility] [address] [id number] [address] [place] [address], [place] [address] Jul, [facility] [address] [id number] [address] [place] [address], [place] [address] Jun, [facility] [address] [id number] [address] [place] [address], [place] [address] Jun, [facility] [address] [id number] [address] [place] [address], [place] [address] Jun, [facility] [address] [id number] [address] [place] [address], [place] [address] Jun, [facility] [address] [id number] [address] [place] [address], [place] [address] Jun, [facility] [address] [id number] [address] [place] [address], [place] [address] Jun, [facility] [address] [id number] [address] [place] [address], [place] [address] May, [facility] [address] [id number] [address] [place] [address], [place] [address] May, [facility] [address] [id number] [address] [place] [address], [place] [address] May, [facility] [address] [id number] [address] [place] [address], [place] [address] May, [facility] [address] [id number] [address] [place] [address], [place] [address] Apr, [facility] [address] [id number] [address] [place] [address], [place] [address] Apr, [facility] [address] [id number] [address] [place] [address], [place] [address] Mar, [facility] [address] [id number] [address] [place] [address], [place] [address] Jan, [facility] [address] [id number] [address] [place] [address], [place] [address] Jan, [facility] [address] [id number] [address] [place] [address], [place] [address] 16 Jan, 2012 [facility] [address] [id number] [address] [place] [address], [place] [address] 15 Jan, 2012 [facility] [address] [id number] [address] [place] [address], [place] [address] Jan, [facility] [address] [id number] [address] [place] [address], [place] [address] 14 Jan, 2012 [facility] [address] [id number] [address] [place] [address], [place] [address] Jan, [facility] [address] [id number] [address] [place] [address], [place] [address] December, [facility] [address] [id number] [address] [place] [address], [place] [address] December, [facility] [address] [id number] [address] [place] [address], [place] [address] December, [facility] [address] [id number] [address] [place] [address], [place] [address] December, [facility] [address] [id number] [address] [place] [address], [place] [address] Nov, [facility] [address] [id number] [address] [place] [address], [place] [address] Nov, [facility] [address] [id number] [address] [place] [address], [place] [address] Oct, [facility] [address] [id number] [address] [place] [address], [place] [address] Oct, [facility] [address] [id number] [address] [place] [address], [place] [address] 15 Oct, 2011 [facility] [address] [id number] [address] [place] [address], [place] [address] Sep, [facility] [address] [id number] [address] [place] [address], [place] [address] Sep, [facility] [address] [id number] [address] [place] [address], [place] [address] Sep, [facility] [address] [id number] [address] [place] [address], [place] [address] Aug, [facility] [address] [id number] [address] [place] [address], [place] [address] Aug, [facility] [address] [id number] [address] [place] [address], [place] [address] Aug, [facility] [address] [id number] [address] [place] [address], [place] [address] Aug, [facility] [address] [id number] [address] [place] [address], [place] [address] Aug, [facility] [address] [id number] [address] [place] [address], [place] [address] Aug, [facility] [address] [id number] [address] [place] [address], [place] [address] Aug, [facility] [address] [id number] [address] [place] [address], [place] [address] Jul, [facility] [address] [id number] [address] [place] [address], [place] [address] Jul, [facility] [address] [id number] [address] [place] [address], [place] [address] Jun, [facility] [address] [id number] [address] [place] [address], [place] [address] 28 Jun, 2011 [facility] [address] [id number] [address] [place] [address], [place] [address] 17 Jun, 2011 [facility] [address] [id number] [address] [place] [address], [place] [address] 15 Jun, 2011 [facility] [address] [id number] [address] [place] [address], [place] [address] 14 Jun, 2011 [facility] [address] [id number] [address] [place] [address], [place] [address] 14 Jun, 2011 [facility] [address] [id number] [address] [place] [address], [place] [address] 07 Jun, 2011 [facility] [address] [id number] [address] [place] [address], [place] [id number] Jun, [facility] [address] [id number] [address] [place] [address], [place] [id number] Jun, [facility] [address] [id number] [address] [place] [address], [place] [id number] Jun, [facility] [address] [id number] [address] [place] [address], [place] [id number] May, [facility] [address] [id number] [address] [place] [address], [place] [address] May, [facility] [address] [id number] [address] [place] [address], [place] [id number] May, [facility] [address] [id number] [address] [place] [address], [place] [id number] May, [facility] [address] [id number] [address] [place] [address], [place] [address] May, [facility] [address] [id number] [address] [place] [address], [place] [id number] May, [facility] [address] [id number] [address] [place] [address], [place] [address] Feb, [facility] [address] [id number] [address] [place] [address], [place] [address] December, [facility] [address] [id number] [address] [place] [address], [place] [id number] Jul, [facility] [address] [id number] [address] [place] [address], [place] [id number] Jul, [facility] [address] [id number] [address] [place] [address], [place] [id number] Jul, [facility] [address] [id number] [address] [place] [address], [place] [id number] Jul, [facility] [address] [id number] [address] [place] [id number] Jun, [facility] [address] [id number] [address] [place] [id number] Jul, [facility] [address] [id number] [address] [place] [id number] Jul, [facility] [address] [id number] [address] [place] [id number] Jul, [facility] [address] [id number] [address] [place] [id number] Jul, [facility] [address] [id number] [address] [place] [id number] Jul, [facility] [address] [id number] [address] [place] [id number] Jul, [facility] [address] [id number] [address] [place] [id number] Jan, [facility] [address] [id number] [address] [place] [id number] Sep, [facility] [address] [id number] [address] [place] [id number] Sep, IMMUNIZATIONS No Known Immunizations SOCIAL HISTORY Never Assessed REASON FOR VISIT Requesting return call PLAN OF CARE VITAL SIGNS MEDICATIONS Unknown [...]
--- OUTSIDE RECORDS SUMMARY | 2020-01-27 10:13 | XMS REPORT ---
Author Author Silvia WILKINS Organization [facility] Address [address] [place] [address] Care Team Providers Care Sandstone Inspector Repairer Name Role Phone LETTY WILKINS Unavailable PROBLEMS Type Condition ICD9-CM Code MVO14-KV Code Onset Dates Condition S tatus SNOMED Code Problem Hypertension I10 Active 0659774 3 Problem Generalized anxiety disorder F41.1 A ctive 264106683 Problem History of colon polyps Z86.010 Active 486145992 Problem History of diverticulitis Z87.19 Acti ve 245745160110168 Problem Family history of diabetes mellitus Z83.3 Active 423103227 Problem Excessive and frequent menstruation with irregular cycle N92.1 Active 605678750 Problem Hot flashes N95.1 Active 62468505 8 Problem Gastroesophageal reflux disease with esophagitis K 21.0 Active 619184830 Problem History of ovarian cyst Z87.42 Active 50877122 Problem Diverticulitis K57.92 Active 62110 6006 Problem Dense breast tissue R92.2 Active 467159798 Problem Perimenopausal N95.1 Active 24032 0518166277 Problem Mitral valve prolapse I34.1 Active 266107330 Problem Abnormal uterine bleeding (AUB) N93.9 Active 44481990857942 Problem Tachycardia R00.0 Active [id number] ALLERGIES No Information ENCOUNTERS Encounter Location Date Diagnosis [facility] [address] [facility] [id number] [address] [place] [id number] May, [facility] [address] [id number] [address] [place] [address] May, [facility] [address] [facility] [id number] [address] [place] [phone] Apr, [facility] [address] [id number] [address] [place] [phone] Mar, Caries K02.9 ; Dental examin ation Z01.20 ; Periodontitis K05.30 and Oral health maintenance status requiring routine preventive dental care K08.9 [facility] [address] [id number] [address] [place] [phone] Mar, Generalized anxiety disorder F41.1 [facility] [address] [facility] [id number] [address] [place] [id number] Mar, Gastrointestinal hemorrhage associated with gastroduodenitis K29.91 [facility] [address] [id number] [address] [place] [phone] Mar, Generalized anxiety disorder F41.1 and Bereavement Z63.4 [facility] [address] [facility] [id number] [address] [place] [id number] Mar, [facility] [address] [facility] [id number] [address] [place] [phone] Mar, [facility] [address] [facility] [id number] [address] [place] [phone] Mar, [facility] [address] [facility] [id number] [address] [place] [phone] Mar, Tachycardia R00.0 and Essent ial hypertension I10 [facility] [address] [facility] [id number] [address] [place] [phone] Feb, Generalized anxiety disorder F41.1 [facility] [address] [facility] [id number] [address] [place] [phone] Feb, Generalized anxiety disorder F41.1 and Bereavement Z63.4 [facility] [address] [facility] [id number] [address] [place] [phone] Feb, Generalized anxiety disorder F41.1 [facility] [address] [facility] [id number] [address] [place] [phone] Feb, Generalized anxiety disorder F41.1 and Bereavement Z63.4 [facility] [address] [facility] [id number] [address] [place] [id number] 27 Jan, 2019 [facility] [address] [id number] [address] [place] [id number] 20 Jan, 2019 Breast cancer screening by trenton crenshaw Z12.31 [facility] [address] [facility] [id number] [address] [place] [id number] 13 Jan, 2019 Generalized anxiety disorder F41.1 and Bereavement Z63.4 [facility] [address] [facility] [id number] [address] [place] [id number] Jan, [facility] [address] [facility] [id number] [address] [place] [phone] December, Generalized anxiety disorder F41.1 and Bereavement Z63.4 [place] [id number] [facility] [id number] [address] [place] [phone] December, Diverticulitis K57.92 ; Dysu nick R30.0 ; Other constipation K59.09 and Lower abdominal pain R10.30 [facility] [address] [facility] [id number] [address] [place] [id number] Nov, Diverticulitis K57.92 [place] [address] [facility] [id number] [address] [place] [phone] Nov, Generalized anxiety disorder F41.1 and Bereavement Z63.4 [facility] [address] [facility] [id number] [address] [place] [phone] Nov, Generalized anxiety disorder F41.1 and Bereavement Z63.4 [facility] [address] [facility] [id number] [address] [place] [id number] Nov, Diverticulitis K57.92 [facility] [address] [facility] [id number] [address] [place] [phone] Oct, Diverticulitis K57.92 [facility] [address] [facility] [id number] [address] [place] [phone] Oct, Diverticulitis K57.92 [facility] [address] [facility] [id number] [address] [place] [phone] Oct, Generalized anxiety disorder F41.1 [facility] [address] [facility] [id number] [address] [place] [phone] Oct, Right lower quadrant abdomin al pain R10.31 and Diverticulitis K57.92 [facility] [address] [facility] [id number] [address] [place] [phone] Sep, Generalized anxiety disorder F41.1 and Bereavement Z63.4 [facility] [address] [facility] [id number] [address] [place] [phone] Aug, [facility] [address] [facility] [id number] [address] [place] [id number] Aug, Generalized anxiety disorder F41.1 and Bereavement Z63.4 [facility] [address] [facility] [id number] [address] [address] Aug, Caries K02.9 [facility] [address] [facility] [id number] [address] [place] [phone] Jul, Generalized anxiety disorder F41.1 and Bereavement Z63.4 [facility] [address] [facility] [id number] [address] [place] [id number] Jul, Other acute gastritis withou t hemorrhage K29.00 ; Generalized anxiety disorder F41.1 ; Tachycardia R00.0 and Essential hypertension I10 [facility] [address] [facility] [id number] [address] [place] [phone] Jul, Generalized anxiety disorder F41.1 and Bereavement Z63.4 [facility] [address] [facility] [id number] [address] [place] [phone] Jun, Generalized anxiety disorder F41.1 and Bereavement Z63.4 [facility] [address] [facility] [id number] [address] [place] [phone] Jun, Generalized anxiety disorder F41.1 and Bereavement Z63.4 [facility] [address] [id number] [address] [place] [address] Jun, Dental examination Z01.20 [facility] [address] [facility] [id number] [address] [place] [id number] May, Generalized anxiety disorder F41.1 and Bereavement Z63.4 [facility] [address] [facility] [id number] [address] [place] [phone] May, Encounter for immunization Z 23 [facility] [address] [facility] [id number] [address] [place] [phone] May, Generalized anxiety disorder F41.1 and Bereavement Z63.4 [facility] [address] [facility] [id number] [address] [place] [phone] May, [facility] [address] [facility] [id number] [address] [place] [id number] 24 Apr, 2018 Generalized anxiety disorder F41.1 and Bereavement Z63.4 [facility] [address] [facility] [id number] [address] [place] [id number] 17 Apr, 2018 [facility] [address] [facility] [id number] [address] [place] [id number] 13 Apr, 2018 Diverticulitis K57.92 [facility] [address] [facility] [id number] [address] [place] [id number] 10 Apr, 2018 Generalized anxiety disorder F41.1 and Bereavement Z63.4 [facility] [address] [facility] [id number] [address] [place] [phone] Mar, [facility] [address] [facility] [id number] [address] [place] [phone] Mar, Diverticulitis K57.92 [facility] [address] [facility] [id number] [address] [place] [phone] Mar, Generalized anxiety disorder F41.1 and Bereavement Z63.4 [place] [address] [id number] [address] [place] [phone] Mar, Hypertension I10 [facility] [address] [id number] [address] [place] [phone] Mar, Generalized anxiety disorder F41.1 and Bereavement Z63.4 [facility] [address] [id number] [address] [place] [id number] Feb, Generalized anxiety disorder F41.1 and Bereavement Z63.4 [facility] [address] [id number] [address] [place] [phone] Feb, [facility] [address] [id number] [address] [place] [phone] Feb, Generalized anxiety disorder F41.1 and Bereavement Z63.4 [facility] [address] [id number] [address] [place] [phone] Feb, Generalized anxiety disorder F41.1 and Bereavement Z63.4 [facility] [address] [id number] [address] [place] [id number] Jan, Hypertension I10 and Acute n on-recurrent maxillary sinusitis J01.00 [facility] [address] [id number] [address] [place] [id number] December, [facility] [address] [id number] [address] [place] [id number] December, Hypertension I10 [facility] [address] [id number] [address] [place] [phone] December, Generalized anxiety disorder F41.1 [facility] [address] [id number] [place] [address] Oct, Encounter for dental examina tion Z01.20 [facility] [address] [id number] [place] [address] 06 Oct, 2017 Encounter for dental examina tion Z01.20 [facility] [address] [id number] [place] [address] 02 Oct, 2017 Dental examination Z01.20 [facility] [address] [id number] [address] [place] [phone] Oct, Generalized anxiety disorder F41.1 [facility] [address] [id number] [place] [address] Aug, Dental examination Z01.20 [facility] [address] [id number] [address] [place] [phone] Aug, Generalized anxiety disorder F41.1 [facility] [address] [id number] [address] [place] [id number] Aug, [facility] [address] [id number] [place] [address] Aug, Encounter for dental examina tion Z01.20 [facility] [address] [id number] [address] [place] [phone] Aug, Subacute maxillary sinusitis J01.00 [facility] [address] [id number] [address] [place] [phone] 22 Jul, 2017 Dental examination Z01.20 [facility] [address] [id number] [address] [place] [phone] Jul, Generalized anxiety disorder F41.1 [facility] [address] [id number] [address] [place] [id number] 11 Jul, 2017 Diverticulitis K57.92 [facility] [address] [id number] [address] [place] [id number] 28 Jun, 2017 Encounter for immunization Z 23 [facility] [address] [id number] [place] [address] 22 Jun, 2017 Dental examination Z01.20 [facility] [address] [id number] [address] [place] [phone] Jun, Generalized anxiety disorder F41.1 [facility] [address] [id number] [address] [place] [address] Jun, Dental examination Z01.20 [facility] [address] [id number] [address] [place] [id number] May, [facility] [address] [id number] [address] [place] [id number] May, Dental examination Z01.20 [facility] [address] [id number] [address] [place] [id number] May, Dental examination Z01.20 [facility] [address] [id number] [address] [place] [address] May, Dental examination Z01.20 [facility] [address] [id number] [address] [place] [id number] May, [facility] [address] [id number] [address] [place] [id number] May, Generalized anxiety disorder F41.1 [facility] [address] [id number] [address] [place] [phone] May, Localized edema R60.0 ; Yeas t vaginitis B37.3 and Gastroesophageal reflux disease with esophagitis K21.0 [facility] [address] [id number] [address] [place] [id number] Apr, Dental examination Z01.20 [facility] [address] [id number] [address] [place] [address] Apr, Dental examination Z01.20 [facility] [address] [id number] [address] [place] [address] Apr, Dental examination Z01.20 [facility] [address] [id number] [address] [place] [phone] Mar, Dyspepsia R10.13 [facility] [address] [id number] [address] [place] [phone] Mar, Generalized anxiety disorder F41.1 [facility] [address] [id number] [place] [address] Mar, Encounter for dental examina tion Z01.20 [facility] [address] [id number] [address] [place] [id number] Mar, [facility] [address] [id number] [address] [place] [address] [id number] Mar, Dental examination Z01.20 [facility] [address] [id number] [address] [place] [id number] Feb, Hypertension I10 and Tachyca rdia R00.0 [facility] [address] [id number] [place] [address] Feb, [facility] [address] [id number] [address] [place] [phone] Feb, Generalized anxiety disorder F41.1 [facility] [address] [id number] [address] [place] [id number] Feb, Dental examination Z01.20 [facility] [address] [id number] [address] [place] [phone] Jan, Generalized anxiety disorder F41.1 [facility] [address] [id number] [address] [place] [id number] December, Generalized anxiety disorder F41.1 [facility] [address] [id number] [address] [place] [address] [id number] December, Encounter for dental examina tion Z01.20 [facility] [address] [id number] [address] [place] [phone] Nov, [facility] [address] [id number] [address] [place] [phone] Nov, [facility] [address] [id number] [address] [place] [phone] Nov, Generalized anxiety disorder F41.1 [facility] [address] [facility] [id number] [address] [place] [id number] 30 Oct, 2016 [facility] [address] [facility] [id number] [address] [place] [address] [id number] Oct, Dental examination Z01.20 [facility] [address] [place] [id number] [address] [place] [id number] Oct, Vaginal dryness N89.8 [facility] [address] [facility] [id number] [address] [place] [phone] Oct, Pseudoseizures F44.5 [facility] [address] [place] [id number] [address] [place] [phone] Oct, Generalized anxiety disorder F41.1 [facility] [id number] [place] [phone] Sep, Abnormal uterine bleeding (A UB) N93.9 ; Vaginal dryness N89.8 and Screening breast examination Z12.39 [facility] [id number] [place] [address] Sep, Dental examination Z01.20 [facility] [address] [place] [id number] [address] [place] [id number] Sep, Generalized anxiety disorder F41.1 [facility] [address] [place] [id number] [address] [place] [id number] 06 Sep, 2016 Unspecified ovarian cyst, ri ght side N83.201 ; Unspecified ovarian cyst, left side N83.202 ; Yeast infection of the vagina B37.3 ; Mitral valve prolapse I34.1 and Hypertension I10 [facility] [address] [place] [id number] [address] [place] [phone] Aug, Generalized anxiety disorder F41.1 [facility] [address] [place] [id number] [address] [place] [id number] Jul, [place] [address] [facility] [id number] [address] [place] [phone] Jul, Generalized anxiety disorder F41.1 [facility] [address] [facility] [id number] [address] [place] [id number] 15 Jun, 2016 Generalized anxiety disorder F41.1 [facility] [address] [facility] [id number] [address] [place] [id number] 28 May, 2016 Encounter for immunization Z 23 [facility] [address] [facility] [id number] [address] [place] [id number] 17 May, 2016 Generalized anxiety disorder F41.1 and Depressive disorder, not elsewhere classified F32.9 [facility] [address] [facility] [id number] [address] [place] [id number] 28 Apr, 2016 Hypertension I10 [facility] [address] [facility] [id number] [address] [place] [id number] 22 Apr, 2016 Cervicalgia M54.2 [facility] [address] [facility] [id number] [address] [place] [phone] 12 Apr, 2016 Cervicalgia M54.2 [facility] [address] [facility] [id number] [address] [place] [id number] 09 Mar, 2016 Generalized anxiety disorder F41.1 and Depressive disorder, not elsewhere classified F32.9 [facility] [id number] [place] [id number] 14 Feb, 2016 Visit for dental examination Z01.20 [facility] [address] [facility] [id number] [address] [place] [phone] 11 Feb, 2016 Pseudoseizures F44.5 ; Migra ine without status migrainosus, not intractable, unspecified migraine type G43.909 and Essential hypertension I10 [facility] [address] [place] [id number] [address] [place] [address] [id number] 06 Feb, 2016 Dental examination Z01.20 [facility] [address] [facility] [id number] [address] [place] [id number] 05 Feb, 2016 Generalized anxiety disorder F41.1 and Depressive disorder, not elsewhere classified F32.9 [facility] [address] [facility] [id number] [address] [place] [phone] Jan, Tachycardia R00.0 [facility] [address] [facility] [id number] [address] [place] [id number] December, Eustachian tube dysfunction, bilateral H69.83 [facility] [address] [facility] [id number] [address] [place] [phone] December, Generalized anxiety disorder F41.1 and Depressive disorder, not elsewhere classified F32.9 [facility] [address] [facility] [id number] [address] [place] [phone] Nov, [facility] [address] [facility] [id number] [address] [place] [phone] Nov, [place] [address] [facility] [id number] [address] [place] [phone] Nov, Hypertension I10 ; Onychomyc osis B35.1 [...] cyst of left ovary N83.29 [facility] [address] [facility] [id number] [address] [place] [id number] 14 Nov, 2015 Sinusitis J32.9 [facility] [address] [facility] [id number] [address] [place] [id number] Oct, Complex cyst of left ovary N 83.29 [facility] [address] [facility] [id number] [address] [place] [phone] Oct, Onychomycosis B35.1 [facility] [address] [id number] [address] [place] [address] [id number] 17 Oct, 2016 Dental examination Z01.20 [place] [address] [place] [id number] [place] [address] 09 Oct, 2016 Well woman exam Z01.419 [...] R92.2 and History of colon polyps Z86.010 [place] [address] [place] [id number] [address] [place] [phone] Oct, Generalized anxiety disorder F41.1 and Depressive disorder, not elsewhere classified F32.9 [place] [address] [phone] Sep, Hypertension I10 and Onychom ycosis B35.1 [place] [address] [phone] 16 Sep, 2015 Skin tags, multiple acquired L91.8 [place] [address] [place] [id number] [place] [phone] Aug, [place] [address] [place] [id number] [place] [phone] Aug, [place] [address] [place] [id number] [place] [phone] Aug, [place] [address] [place] [id number] [place] [phone] Aug, Generalized anxiety disorder F41.1 and Depressive disorder, not elsewhere classified F32.9 [place] [address] [place] [id number] [place] [phone] Jul, Skin lesion L98.9 [facility] [address] [id number] [address] [place] [phone] Jun, Generalized anxiety disorder F41.1 and Depressive disorder, not elsewhere classified F32.9 [facility] [address] [id number] [address] [place] [phone] Jun, [facility] [address] [id number] [address] [place] [phone] Jun, Generalized anxiety disorder F41.1 [facility] [address] [id number] [address] [place] [id number] May, Encounter for immunization Z 23 and Right shoulder pain M25.511 [facility] [address] [id number] [address] [place] [phone] Apr, [facility] [address] [id number] [address] [place] [phone] 14 Apr, 2015 Generalized anxiety disorder 300.02 and Depressive disorder, not elsewhere classified 311 [facility] [address] [id number] [address] [place] [id number] Mar, Dental examination V72.2 [facility] [address] [id number] [address] [place] [id number] Mar, Generalized anxiety disorder 300.02 and Depressive disorder, not elsewhere classified 311 [facility] [address] [id number] [address] [place] [id number] Mar, Depression, major, recurrent , 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.35 and 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 [facility] [address] [id number] [address] [place] [id number] Feb, Generalized anxiety disorder 300.02 and Depressive disorder, not elsewhere classified 311 [facility] [address] [id number] [address] [place] [id number] Feb, Dental examination V72.2 [facility] [address] [id number] [address] [place] [id number] Jan, Generalized anxiety disorder 300.02 and Depressive disorder, not elsewhere classified 311 [facility] [address] [id number] [address] [place] [phone] Jan, [facility] [address] [facility] [id number] [address] [place] [id number] December, Generalized anxiety disorder 300.02 and Depressive disorder, not elsewhere classified 311 [facility] [address] [facility] [id number] [address] [place] [address] December, Major depressive disorder, r ecurrent, unspecified 296.30 and Panic disorder with agoraphobia 300.21 [facility] [address] [facility] [id number] [address] [place] [phone] Nov, [facility] [address] [facility] [id number] [address] [place] [id number] Nov, [facility] [address] [facility] [id number] [address] [place] [id number] Oct, [facility] [address] [facility] [id number] [address] [place] [id number] Oct, [facility] [address] [facility] [id number] [address] [place] [id number] Oct, [facility] [address] [facility] [id number] [address] [place] [id number] Oct, [facility] [address] [facility] [id number] [address] [place] [id number] Sep, [facility] [address] [facility] [id number] [address] [place] [id number] Sep, [facility] [address] [facility] [id number] [address] [place] [id number] Sep, [facility] [address] [facility] [id number] [address] [place] [id number] Sep, [facility] [address] [facility] [id number] [address] [place] [phone] Sep, 2014 [facility] [address] [id number] [address] [place] [address], [place] [address] Sep, 2014 [facility] [address] [id number] [address] [place] [address], [place] [address] Sep, 2014 [facility] [address] [id number] [address] [place] [address], [place] [address] Sep, 2014 [facility] [address] [id number] [address] [place] [address], [place] [address] Sep, 2014 [facility] [address] [id number] [address] [place] [address], [place] [address] Sep, [facility] [address] [id number] [address] [place] [address], [place] [address] Aug, [facility] [address] [id number] [address] [place] [address], [place] [address] Aug, [facility] [address] [id number] [address] [place] [address], [place] [address] Jul, [facility] [address] [id number] [address] [place] [address], [place] [address] Jul, [facility] [address] [id number] [address] [place] [address], [place] [address] 18 Jul, 2014 [facility] [address] [id number] [address] [place] [address], [place] [address] 18 Jul, 2014 [facility] [address] [id number] [address] [place] [address], [place] [address] Jul, [facility] [address] [id number] [address] [place] [address], [place] [address] Jul, [facility] [address] [id number] [address] [place] [address], [place] [address] 05 Jul, 2014 [facility] [address] [id number] [address] [place] [address], [place] [address] 05 Jul, 2014 [facility] [address] [id number] [address] [place] [address], [place] [address] Jul, [facility] [address] [id number] [address] [place] [address], [place] [address] Jul, [facility] [address] [id number] [address] [place] [address], [place] [address] Jul, [facility] [address] [id number] [address] [place] [address], [place] [address] Jul, [facility] [address] [id number] [address] [place] [address], [place] [address] Jun, [facility] [address] [id number] [address] [place] [address], [place] [address] Jun, [facility] [address] [id number] [address] [place] [address], [place] [address] May, [facility] [address] [id number] [address] [place] [address], [place] [address] May, [facility] [address] [id number] [address] [place] [address], [place] [address] May, [facility] [address] [id number] [address] [place] [address], [place] [address] May, [facility] [address] [id number] [address] [place] [address], [place] [address] May, [facility] [address] [id number] [address] [place] [address], [place] [address] May, [facility] [address] [id number] [address] [place] [address], [place] [address] May, [facility] [address] [id number] [address] [place] [address], [place] [address] May, [facility] [address] [id number] [address] [place] [address], [place] [address] May, [facility] [address] [id number] [address] [place] [address], [place] [address] May, [facility] [address] [id number] [address] [place] [address], [place] [address] May, [facility] [address] [id number] [address] [place] [address], [place] [address] May, [facility] [address] [id number] [address] [place] [address], [place] [address] Apr, [facility] [address] [id number] [address] [place] [address], [place] [address] 30 Apr, 2014 [facility] [address] [id number] [address] [place] [address], [place] [address] Apr, [facility] [address] [id number] [address] [place] [address], [place] [address] Apr, [facility] [address] [id number] [address] [place] [address], [place] [address] Apr, [facility] [address] [id number] [address] [place] [address], [place] [address] Apr, [facility] [address] [id number] [address] [place] [address], [place] [address] Feb, [facility] [address] [id number] [address] [place] [address], [place] [address] Feb, [facility] [address] [id number] [address] [place] [address], [place] [address] Feb, [facility] [address] [id number] [address] [place] [address], [place] [address] Feb, [facility] [address] [id number] [address] [place] [address], [place] [address] Feb, [facility] [address] [id number] [address] [place] [address], [place] [address] Feb, [facility] [address] [id number] [address] [place] [address], [place] [address] Jan, [facility] [address] [id number] [address] [place] [address] Jan, [facility] [address] [id number] [facility] [place] [address] Jan, [facility] [address] [id number] [address] [place] [address], [place] [address] Jan, [facility] [address] [id number] [address] [place] [address], [place] [address] Jan, [facility] [address] [id number] [address] [place] [address], [place] [address] Jan, [facility] [address] [id number] [address] [place] [address], [place] [address] Jan, [facility] [address] [id number] [address] [place] [address], [place] [address] Jan, [facility] [address] [id number] [address] [place] [address], [place] [address] December, [facility] [address] [id number] [address] [place] [address], [place] [address] December, [facility] [address] [id number] [address] [place] [address], [place] [address] December, [facility] [address] [id number] [address] [place] [address], [place] [address] December, [facility] [address] [id number] [address] [place] [address], [place] [address] Nov, [facility] [address] [id number] [address] [place] [address], [place] [address] Nov, [facility] [address] [id number] [address] [place] [address], [place] [address] Nov, [facility] [address] [id number] [address] [place] [address], [place] [address] Nov, [facility] [address] [id number] [address] [place] [address], [place] [address] Nov, [facility] [address] [id number] [address] [place] [address], [place] [address] Nov, [facility] [address] [id number] [address] [place] [address], [place] [address] Nov, [facility] [address] [id number] [address] [place] [address], [place] [address] Nov, [facility] [address] [id number] [address] [place] [address], [place] [address] Oct, [facility] [address] [id number] [address] [place] [address], [place] [address] Oct, [facility] [address] [id number] [address] [place] [address], [place] [address] Sep, [facility] [address] [id number] [address] [place] [address], [place] [address] Sep, [facility] [address] [id number] [address] [place] [address], [place] [id number] Sep, [facility] [address] [id number] [address] [place] [address], [place] [address] Sep, [facility] [address] [id number] [address] [place] [address], [place] [address] Sep, [facility] [address] [id number] [address] [place] [address], [place] [address] Sep, [facility] [address] [id number] [address] [place] [address], [place] [address] Aug, [facility] [address] [id number] [address] [place] [address], [place] [address] Aug, [facility] [address] [id number] [address] [place] [address], [place] [address] Aug, [facility] [address] [id number] [address] [place] [address], [place] [address] Aug, [facility] [address] [id number] [address] [place] [address], [place] [address] Jul, [facility] [address] [id number] [address] [place] [address], [place] [address] Jul, [facility] [address] [id number] [address] [place] [address], [place] [address] Jul, [facility] [address] [id number] [address] [place] [address], [place] [address] Jul, [facility] [address] [id number] [address] [place] [address] Jun, [facility] [address] [id number] [address] [place] [address], [place] [address] Jun, [facility] [address] [id number] [address] [place] [address], [place] [address] May, [facility] [address] [id number] [address] [place] [address], [place] [address] May, [facility] [address] [id number] [address] [place] [address], [place] [address] May, [facility] [address] [id number] [address] [place] [address], [place] [address] May, [facility] [address] [id number] [address] [place] [address], [place] [address] May, [facility] [address] [id number] [address] [place] [address], [place] [address] 17 Apr, 2013 [facility] [address] [id number] [address] [place] [address] 10 Apr, 2013 [facility] [address] [id number] [address] [place] [address], [place] [address] 29 Mar, 2013 [facility] [address] [id number] [address] [place] [address], [place] [address] Mar, [facility] [address] [id number] [address] [place] [address], [place] [address] 15 Mar, 2013 [facility] [address] [id number] [address] [place] [address], [place] [address] Mar, [facility] [address] [id number] [address] [place] [address], [place] [address] Feb, [facility] [address] [id number] [address] [place] [address], [place] [address] Feb, [facility] [address] [id number] [address] [place] [address], [place] [address] Feb, [facility] [address] [id number] [address] [place] [address], [place] [address] Feb, [facility] [address] [id number] [address] [place] [address], [place] [address] Feb, [facility] [address] [id number] [address] [place] [address], [place] [address] Jan, [facility] [address] [id number] [address] [place] [address], [place] [address] Jan, [facility] [address] [id number] [address] [place] [address], [place] [address] Jan, [facility] [address] [id number] [address] [place] [address], [place] [address] Jan, [facility] [address] [id number] [address] [place] [address], [place] [address] Jan, [facility] [address] [id number] [address] [place] [address], [place] [address] December, [facility] [address] [id number] [address] [place] [address], [place] [address] December, [facility] [address] [id number] [address] [place] [address], [place] [address] Nov, [facility] [address] [id number] [address] [place] [address], [place] [address] Nov, [facility] [address] [id number] [address] [place] [address], [place] [address] Oct, [facility] [address] [id number] [address] [place] [address], [place] [address] 13 Oct, 2012 [facility] [address] [id number] [address] [place] [address], [place] [address] 05 Oct, 2012 [facility] [address] [id number] [address] [place] [address], [place] [address] 14 Sep, 2012 [facility] [address] [id number] [address] [place] [address], [place] [address] 24 Aug, 2012 [facility] [address] [id number] [address] [place] [address], [place] [address] 16 Aug, 2012 [facility] [address] [id number] [address] [place] [address], [place] [address] 15 Aug, 2012 [facility] [address] [id number] [address] [place] [address], [place] [address] Aug, [facility] [address] [id number] [address] [place] [address], [place] [address] Jul, [facility] [address] [id number] [address] [place] [address], [place] [address] Jul, [facility] [address] [id number] [address] [place] [address], [place] [address] Jul, [facility] [address] [id number] [address] [place] [address], [place] [address] Jul, [facility] [address] [id number] [address] [place] [address], [place] [address] Jul, [facility] [address] [id number] [address] [place] [address], [place] [address] Jul, [facility] [address] [id number] [address] [place] [address], [place] [address] Jul, [facility] [address] [id number] [address] [place] [address], [place] [address] Jul, [facility] [address] [id number] [address] [place] [address], [place] [address] Jun, [facility] [address] [id number] [address] [place] [address], [place] [address] Jun, [facility] [address] [id number] [address] [place] [address], [place] [address] Jun, [facility] [address] [id number] [address] [place] [address], [place] [address] Jun, [facility] [address] [id number] [address] [place] [address], [place] [address] Jun, [facility] [address] [id number] [address] [place] [address], [place] [address] Jun, [facility] [address] [id number] [address] [place] [address], [place] [address] May, [facility] [address] [id number] [address] [place] [address], [place] [address] May, [facility] [address] [id number] [address] [place] [address], [place] [address] May, [facility] [address] [id number] [address] [place] [address], [place] [address] May, [facility] [address] [id number] [address] [place] [address], [place] [address] Apr, [facility] [address] [id number] [address] [place] [address], [place] [address] Apr, [facility] [address] [id number] [address] [place] [address], [place] [address] Mar, [facility] [address] [id number] [address] [place] [address], [place] [address] Jan, [facility] [address] [id number] [address] [place] [address], [place] [address] Jan, [facility] [address] [id number] [address] [place] [address], [place] [address] 16 Jan, 2012 [facility] [address] [id number] [address] [place] [address], [place] [address] 15 Jan, 2012 [facility] [address] [id number] [address] [place] [address], [place] [address] Jan, [facility] [address] [id number] [address] [place] [address], [place] [address] 14 Jan, 2012 [facility] [address] [id number] [address] [place] [address], [place] [address] Jan, [facility] [address] [id number] [address] [place] [address], [place] [address] December, [facility] [address] [id number] [address] [place] [address], [place] [address] December, [facility] [address] [id number] [address] [place] [address], [place] [address] December, [facility] [address] [id number] [address] [place] [address], [place] [address] December, [facility] [address] [id number] [address] [place] [address], [place] [address] Nov, [facility] [address] [id number] [address] [place] [address], [place] [address] Nov, [facility] [address] [id number] [address] [place] [address], [place] [address] Oct, [facility] [address] [id number] [address] [place] [address], [place] [address] Oct, [facility] [address] [id number] [address] [place] [address], [place] [address] 15 Oct, 2011 [facility] [address] [id number] [address] [place] [address], [place] [address] Sep, [facility] [address] [id number] [address] [place] [address], [place] [address] Sep, [facility] [address] [id number] [address] [place] [address], [place] [address] Sep, [facility] [address] [id number] [address] [place] [address], [place] [address] Aug, [facility] [address] [id number] [address] [place] [address], [place] [address] Aug, [facility] [address] [id number] [address] [place] [address], [place] [address] Aug, [facility] [address] [id number] [address] [place] [address], [place] [address] Aug, [facility] [address] [id number] [address] [place] [address], [place] [address] Aug, [facility] [address] [id number] [address] [place] [address], [place] [address] Aug, [facility] [address] [id number] [address] [place] [address], [place] [address] Aug, [facility] [address] [id number] [address] [place] [address], [place] [address] Jul, [facility] [address] [id number] [address] [place] [address], [place] [address] Jul, [facility] [address] [id number] [address] [place] [address], [place] [address] Jun, [facility] [address] [id number] [address] [place] [address], [place] [address] 28 Jun, 2011 [facility] [address] [id number] [address] [place] [address], [place] [address] 17 Jun, 2011 [facility] [address] [id number] [address] [place] [address], [place] [address] 15 Jun, 2011 [facility] [address] [id number] [address] [place] [address], [place] [address] 14 Jun, 2011 [facility] [address] [id number] [address] [place] [address], [place] [address] 14 Jun, 2011 [facility] [address] [id number] [address] [place] [address], [place] [address] 07 Jun, 2011 [facility] [address] [id number] [address] [place] [address], [place] [address] Jun, [facility] [address] [id number] [address] [place] [address], [place] [address] Jun, [facility] [address] [id number] [address] [place] [address], [place] [address] Jun, [facility] [address] [id number] [address] [place] [address], [place] [address] May, [facility] [address] [id number] [address] [place] [address], [place] [address] May, [facility] [address] [id number] [address] [place] [address], [place] [address] May, [facility] [address] [id number] [address] [place] [address], [place] [address] May, [facility] [address] [id number] [address] [place] [address], [place] [address] May, [facility] [address] [id number] [address] [place] [address], [place] [address] May, [facility] [address] [id number] [address] [place] [address], [place] [address] Feb, [facility] [address] [id number] [address] [place] [address], [place] [address] December, [facility] [address] [id number] [address] [place] [address], [place] [address] Jul, [facility] [address] [id number] [address] [place] [address], [place] [address] Jul, [facility] [address] [id number] [address] [place] [address], [place] [address] Jul, [facility] [address] [id number] [address] [place] [address], [place] [address] Jul, [facility] [address] [id number] [address] [place] [id number] Jun, [facility] [address] [id number] [address] [place] [id number] Jul, [facility] [address] [id number] [address] [place] [id number] Jul, [facility] [address] [id number] [address] [place] [id number] Jul, [facility] [address] [id number] [address] [place] [id number] Jul, [facility] [address] [id number] [address] [place] [id number] Jul, [facility] [address] [id number] [address] [place] [id number] Jul, [facility] [address] [id number] [address] [place] [phone] Jan, [facility] [address] [id number] [address] [place] [id number] Sep, [facility] [address] [id number] [address] [place] [id number] Sep, IMMUNIZATIONS No Known Immunizations SOCIAL HISTORY [...]
--- OUTSIDE RECORDS SUMMARY | 2020-01-27 10:14 | XMS REPORT ---
Author Author Silvia WILKINS Organization [facility] Address [address] [place] [address] Care Team Providers Care Summer Clerk Name Role Phone LETTY WILKINS Unavailable PROBLEMS Type Condition ICD9-CM Code HIV84-LK Code Onset Dates Condition S tatus SNOMED Code Problem Hypertension I10 Active 6979960 3 Problem Generalized anxiety disorder F41.1 A ctive 906101556 Problem History of colon polyps Z86.010 Active 820849168 Problem History of diverticulitis Z87.19 Acti ve [id number] Problem Family history of diabetes mellitus Z83.3 Active 683701994 Problem Excessive and frequent menstruation with irregular cycle N92.1 Active 746649118 Problem Hot flashes N95.1 Active 39373932 8 Problem Gastroesophageal reflux disease with esophagitis K 21.0 Active 751292173 Problem History of ovarian cyst Z87.42 Active 35894098 Problem Diverticulitis K57.92 Active 18707 6006 Problem Dense breast tissue R92.2 Active 706512019 Problem Perimenopausal N95.1 Active 58356 6208636819 Problem Mitral valve prolapse I34.1 Active 217756450 Problem Abnormal uterine bleeding (AUB) N93.9 Active 65217392775478 Problem Tachycardia R00.0 Active [id number] ALLERGIES No Information ENCOUNTERS Encounter Location Date Diagnosis [facility] [address] [id number] [address] [place] [address] May, [facility] [address] [facility] [id number] [address] [place] [address] Apr, [facility] [address] [facility] [id number] [address] [place] [address] Apr, [facility] [address] [id number] [address] [place] [address] Mar, Caries K02.9 ; Dental examin ation Z01.20 ; Periodontitis K05.30 and Oral health maintenance status requiring routine preventive dental care K08.9 [facility] [address] [id number] [address] [place] [address] Mar, Generalized anxiety disorder F41.1 [facility] [address] [facility] [id number] [address] [place] [address] Mar, Gastrointestinal hemorrhage associated with gastroduodenitis K29.91 [facility] [address] [id number] [address] [place] [address] Mar, Generalized anxiety disorder F41.1 and Bereavement Z63.4 [facility] [address] [facility] [id number] [address] [place] [address] Mar, [facility] [address] [facility] [id number] [address] [place] [address] Mar, [facility] [address] [facility] [id number] [address] [place] [address] Mar, [facility] [address] [facility] [id number] [address] [place] [address] Mar, Tachycardia R00.0 and Essent ial hypertension I10 [facility] [address] [facility] [id number] [address] [place] [address] Feb, Generalized anxiety disorder F41.1 [facility] [address] [facility] [id number] [address] [place] [address] Feb, Generalized anxiety disorder F41.1 and Bereavement Z63.4 [facility] [address] [facility] [id number] [address] [place] [address] Feb, Generalized anxiety disorder F41.1 [facility] [address] [facility] [id number] [address] [place] [address] Feb, Generalized anxiety disorder F41.1 and Bereavement Z63.4 [facility] [address] [facility] [id number] [address] [place] [address] 27 Jan, 2019 [facility] [address] [id number] [address] [place] [address] 20 Jan, 2019 Breast cancer screening by trenton crenshaw Z12.31 [facility] [address] [facility] [id number] [address] [place] [address] 13 Jan, 2019 Generalized anxiety disorder F41.1 and Bereavement Z63.4 [facility] [address] [facility] [id number] [address] [place] [address] Jan, [facility] [address] [facility] [id number] [address] [place] [address] December, Generalized anxiety disorder F41.1 and Bereavement Z63.4 [place] [address] [facility] [id number] [address] [place] [address] December, Diverticulitis K57.92 ; Dysu nick R30.0 ; Other constipation K59.09 and Lower abdominal pain R10.30 [facility] [address] [facility] [id number] [address] [place] [address] Nov, Diverticulitis K57.92 [place] [address] [facility] [id number] [address] [place] [address] Nov, Generalized anxiety disorder F41.1 and Bereavement Z63.4 [facility] [address] [facility] [id number] [address] [place] [address] Nov, Generalized anxiety disorder F41.1 and Bereavement Z63.4 [facility] [address] [facility] [id number] [address] [place] [address] Nov, Diverticulitis K57.92 [facility] [address] [facility] [id number] [address] [place] [address] Oct, Diverticulitis K57.92 [facility] [address] [facility] [id number] [address] [place] [address] Oct, Diverticulitis K57.92 [facility] [address] [facility] [id number] [address] [place] [address] Oct, Generalized anxiety disorder F41.1 [facility] [address] [facility] [id number] [address] [place] [address] Oct, Right lower quadrant abdomin al pain R10.31 and Diverticulitis K57.92 [facility] [address] [facility] [id number] [address] [place] [address] Sep, Generalized anxiety disorder F41.1 and Bereavement Z63.4 [facility] [address] [facility] [id number] [address] [place] [address] Aug, [facility] [address] [facility] [id number] [address] [place] [address] Aug, Generalized anxiety disorder F41.1 and Bereavement Z63.4 [facility] [address] [facility] [id number] [place] [address] Aug, Caries K02.9 [facility] [address] [facility] [id number] [address] [place] [address] Jul, Generalized anxiety disorder F41.1 and Bereavement Z63.4 [facility] [address] [facility] [id number] [address] [place] [address] Jul, Other acute gastritis withou t hemorrhage K29.00 ; Generalized anxiety disorder F41.1 ; Tachycardia R00.0 and Essential hypertension I10 [facility] [address] [facility] [id number] [address] [place] [address] Jul, Generalized anxiety disorder F41.1 and Bereavement Z63.4 [facility] [address] [facility] [id number] [address] [place] [address] Jun, Generalized anxiety disorder F41.1 and Bereavement Z63.4 [facility] [address] [facility] [id number] [address] [place] [address] Jun, Generalized anxiety disorder F41.1 and Bereavement Z63.4 [facility] [address] [id number] [address] [place] [address] Jun, Dental examination Z01.20 [facility] [address] [facility] [id number] [address] [place] [address] May, Generalized anxiety disorder F41.1 and Bereavement Z63.4 [facility] [address] [facility] [id number] [address] [place] [address] May, Encounter for immunization Z 23 [facility] [address] [facility] [id number] [address] [place] [address] May, Generalized anxiety disorder F41.1 and Bereavement Z63.4 [facility] [address] [facility] [id number] [address] [place] [address] May, [facility] [address] [facility] [id number] [address] [place] [address] 24 Apr, 2018 Generalized anxiety disorder F41.1 and Bereavement Z63.4 [facility] [address] [facility] [id number] [address] [place] [address] 17 Apr, 2018 [facility] [address] [facility] [id number] [address] [place] [address] 13 Apr, 2018 Diverticulitis K57.92 [facility] [address] [facility] [id number] [address] [place] [address] 10 Apr, 2018 Generalized anxiety disorder F41.1 and Bereavement Z63.4 [facility] [address] [facility] [id number] [address] [place] [address] Mar, [facility] [address] [facility] [id number] [address] [place] [address] Mar, Diverticulitis K57.92 [facility] [address] [facility] [id number] [address] [place] [address] Mar, Generalized anxiety disorder F41.1 and Bereavement Z63.4 [place] [address] [id number] [address] [place] [address] Mar, Hypertension I10 [facility] [address] [id number] [address] [place] [address] Mar, Generalized anxiety disorder F41.1 and Bereavement Z63.4 [facility] [address] [id number] [address] [place] [address] Feb, Generalized anxiety disorder F41.1 and Bereavement Z63.4 [facility] [address] [id number] [address] [place] [address] Feb, [facility] [address] [id number] [address] [place] [address] Feb, Generalized anxiety disorder F41.1 and Bereavement Z63.4 [facility] [address] [id number] [address] [place] [address] Feb, Generalized anxiety disorder F41.1 and Bereavement Z63.4 [facility] [address] [id number] [address] [place] [address] Jan, Hypertension I10 and Acute n on-recurrent maxillary sinusitis J01.00 [facility] [address] [id number] [address] [place] [address] December, [facility] [address] [id number] [address] [place] [address] December, Hypertension I10 [facility] [address] [id number] [address] [place] [address] December, Generalized anxiety disorder F41.1 [facility] [address] [id number] [place] [address] Oct, Encounter for dental examina tion Z01.20 [facility] [address] [id number] [place] [address] 06 Oct, 2017 Encounter for dental examina tion Z01.20 [facility] [address] [id number] [place] [address] 02 Oct, 2017 Dental examination Z01.20 [facility] [address] [id number] [address] [place] [address] Oct, Generalized anxiety disorder F41.1 [facility] [address] [id number] [place] [address] Aug, Dental examination Z01.20 [facility] [address] [id number] [address] [place] [address] Aug, Generalized anxiety disorder F41.1 [facility] [address] [id number] [address] [place] [address] Aug, [facility] [address] [id number] [place] [address] Aug, Encounter for dental examina tion Z01.20 [facility] [address] [id number] [address] [place] [address] Aug, Subacute maxillary sinusitis J01.00 [facility] [address] [id number] [address] [place] [address] 22 Jul, 2017 Dental examination Z01.20 [facility] [address] [id number] [address] [place] [address] Jul, Generalized anxiety disorder F41.1 [facility] [address] [id number] [address] [place] [address] 11 Jul, 2017 Diverticulitis K57.92 [facility] [address] [id number] [address] [place] [address] 28 Jun, 2017 Encounter for immunization Z 23 [facility] [address] [id number] [place] [address] 22 Jun, 2017 Dental examination Z01.20 [facility] [address] [id number] [address] [place] [address] Jun, Generalized anxiety disorder F41.1 [facility] [address] [id number] [address] [place] [address] Jun, Dental examination Z01.20 [facility] [address] [id number] [address] [place] [address] May, [facility] [address] [id number] [address] [place] [id number] May, Dental examination Z01.20 [facility] [address] [id number] [address] [place] [id number] May, Dental examination Z01.20 [facility] [address] [id number] [address] [place] [address] May, Dental examination Z01.20 [facility] [address] [id number] [address] [place] [address] May, [facility] [address] [id number] [address] [place] [address] May, Generalized anxiety disorder F41.1 [facility] [address] [id number] [address] [place] [address] May, Localized edema R60.0 ; Yeas t vaginitis B37.3 and Gastroesophageal reflux disease with esophagitis K21.0 [facility] [address] [id number] [address] [place] [id number] Apr, Dental examination Z01.20 [facility] [address] [id number] [address] [place] [address] Apr, Dental examination Z01.20 [facility] [address] [id number] [address] [place] [address] Apr, Dental examination Z01.20 [facility] [address] [id number] [address] [place] [address] Mar, Dyspepsia R10.13 [facility] [address] [id number] [address] [place] [address] Mar, Generalized anxiety disorder F41.1 [facility] [address] [id number] [place] [address] Mar, Encounter for dental examina tion Z01.20 [facility] [address] [id number] [address] [place] [address] [id number] Mar, [facility] [address] [id number] [address] [place] [id number] Mar, Dental examination Z01.20 [facility] [address] [id number] [address] [place] [address] Feb, Hypertension I10 and Tachyca rdia R00.0 [facility] [address] [id number] [place] [address] Feb, [facility] [address] [id number] [address] [place] [address] Feb, Generalized anxiety disorder F41.1 [facility] [address] [id number] [address] [place] [address] [id number] Feb, Dental examination Z01.20 [facility] [address] [id number] [address] [place] [address] Jan, Generalized anxiety disorder F41.1 [facility] [address] [id number] [address] [place] [address] December, Generalized anxiety disorder F41.1 [facility] [address] [id number] [address] [place] [address] [id number] December, Encounter for dental examina tion Z01.20 [facility] [address] [id number] [address] [place] [address] Nov, [facility] [address] [id number] [address] [place] [address] Nov, [facility] [address] [id number] [address] [place] [address] Nov, Generalized anxiety disorder F41.1 [facility] [address] [facility] [id number] [address] [place] [address] 30 Oct, 2016 [facility] [address] [facility] [id number] [address] [place] [address] [id number] Oct, Dental examination Z01.20 [facility] [address] [place] [id number] [address] [place] [address] Oct, Vaginal dryness N89.8 [facility] [address] [facility] [id number] [address] [place] [address] Oct, Pseudoseizures F44.5 [facility] [address] [place] [id number] [address] [place] [address] Oct, Generalized anxiety disorder F41.1 [facility] [id number] [place] [address] Sep, Abnormal uterine bleeding (A UB) N93.9 ; Vaginal dryness N89.8 and Screening breast examination Z12.39 [facility] [id number] [place] [address] Sep, Dental examination Z01.20 [facility] [address] [place] [id number] [address] [place] [address] Sep, Generalized anxiety disorder F41.1 [facility] [address] [place] [id number] [address] [place] [address] 06 Sep, 2016 Unspecified ovarian cyst, ri ght side N83.201 ; Unspecified ovarian cyst, left side N83.202 ; Yeast infection of the vagina B37.3 ; Mitral valve prolapse I34.1 and Hypertension I10 [facility] [address] [place] [id number] [address] [place] [address] Aug, Generalized anxiety disorder F41.1 [facility] [address] [place] [id number] [address] [place] [address] Jul, [place] [address] [facility] [id number] [address] [place] [address] Jul, Generalized anxiety disorder F41.1 [facility] [address] [facility] [id number] [address] [place] [address] 15 Jun, 2016 Generalized anxiety disorder F41.1 [facility] [address] [facility] [id number] [address] [place] [address] 28 May, 2016 Encounter for immunization Z 23 [facility] [address] [facility] [id number] [address] [place] [address] 17 May, 2016 Generalized anxiety disorder F41.1 and Depressive disorder, not elsewhere classified F32.9 [facility] [address] [facility] [id number] [address] [place] [address] 28 Apr, 2016 Hypertension I10 [facility] [address] [facility] [id number] [address] [place] [address] 22 Apr, 2016 Cervicalgia M54.2 [facility] [address] [facility] [id number] [address] [place] [address] 12 Apr, 2016 Cervicalgia M54.2 [facility] [address] [facility] [id number] [address] [place] [address] 09 Mar, 2016 Generalized anxiety disorder F41.1 and Depressive disorder, not elsewhere classified F32.9 [facility] [id number] [place] [address] [id number] 14 Feb, 2016 Visit for dental examination Z01.20 [facility] [address] [facility] [id number] [address] [place] [address] 11 Feb, 2016 Pseudoseizures F44.5 ; Migra ine without status migrainosus, not intractable, unspecified migraine type G43.909 and Essential hypertension I10 [facility] [address] [place] [id number] [address] [place] [address] [id number] 06 Feb, 2016 Dental examination Z01.20 [facility] [address] [facility] [id number] [address] [place] [address] 05 Feb, 2016 Generalized anxiety disorder F41.1 and Depressive disorder, not elsewhere classified F32.9 [facility] [address] [facility] [id number] [address] [place] [address] Jan, Tachycardia R00.0 [facility] [address] [facility] [id number] [address] [place] [address] December, Eustachian tube dysfunction, bilateral H69.83 [facility] [address] [facility] [id number] [address] [place] [address] December, Generalized anxiety disorder F41.1 and Depressive disorder, not elsewhere classified F32.9 [facility] [address] [facility] [id number] [address] [place] [address] Nov, [facility] [address] [facility] [id number] [address] [place] [address] Nov, [place] [address] [facility] [id number] [address] [place] [address] Nov, Hypertension I10 ; Onychomyc osis B35.1 [...] Complex cyst of left ovary N83.29 [facility] [address] [facility] [id number] [address] [place] [address] 14 Nov, 2015 Sinusitis J32.9 [facility] [address] [facility] [id number] [address] [place] [phone] Oct, Complex cyst of left ovary N 83.29 [facility] [address] [facility] [id number] [address] [place] [phone] Oct, Onychomycosis B35.1 [facility] [address] [id number] [address] [place] [id number] 17 Oct, 2016 Dental examination Z01.20 [place] [address] [place] [id number] [place] [phone] 09 Oct, 2016 Well woman exam Z01.419 [...] History of colon polyps Z86.010 [place] [address] [place] [id number] [address] [place] [phone] Oct, Generalized anxiety disorder F41.1 and Depressive disorder, not elsewhere classified F32.9 [place] [address] [phone] Sep, Hypertension I10 and Onychom ycosis B35.1 [place] [address] [phone] 16 Sep, 2015 Skin tags, multiple acquired L91.8 [place] [address] [place] [id number] [address] [place] [phone] Aug, [place] [address] [place] [id number] [address] [place] [phone] Aug, [place] [address] [place] [id number] [address] [place] [phone] Aug, [place] [address] [place] [id number] [place] [phone] Aug, Generalized anxiety disorder F41.1 and Depressive disorder, not elsewhere classified F32.9 [place] [address] [place] [id number] [address] [place] [phone] Jul, Skin lesion L98.9 [facility] [address] [id number] [address] [place] [phone] Jun, Generalized anxiety disorder F41.1 and Depressive disorder, not elsewhere classified F32.9 [facility] [address] [id number] [address] [place] [phone] Jun, [facility] [address] [id number] [address] [place] [phone] Jun, Generalized anxiety disorder F41.1 [facility] [address] [id number] [address] [place] [address] [address] May, Encounter for immunization Z 23 and Right shoulder pain M25.511 [facility] [address] [id number] [address] [place] [address] Apr, [facility] [address] [id number] [address] [place] [address] 14 Apr, 2015 Generalized anxiety disorder 300.02 and Depressive disorder, not elsewhere classified 311 [facility] [address] [id number] [address] [place] [id number] Mar, Dental examination V72.2 [facility] [address] [id number] [address] [place] [address] Mar, Generalized anxiety disorder 300.02 and Depressive disorder, not elsewhere classified 311 [facility] [address] [id number] [address] [place] [address] Mar, Depression, major, recurrent , 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.35 and 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 [facility] [address] [id number] [address] [place] [address] Feb, Generalized anxiety disorder 300.02 and Depressive disorder, not elsewhere classified 311 [facility] [address] [id number] [address] [place] [id number] Feb, Dental examination V72.2 [facility] [address] [id number] [address] [place] [address] Jan, Generalized anxiety disorder 300.02 and Depressive disorder, not elsewhere classified 311 [facility] [address] [id number] [address] [place] [address] Jan, [facility] [address] [facility] [id number] [address] [place] [address] December, Generalized anxiety disorder 300.02 and Depressive disorder, not elsewhere classified 311 [facility] [address] [facility] [id number] [address] [place] [address] December, Major depressive disorder, r ecurrent, unspecified 296.30 and Panic disorder with agoraphobia 300.21 [facility] [address] [facility] [id number] [address] [place] [address] Nov, [facility] [address] [facility] [id number] [address] [place] [address] Nov, [facility] [address] [facility] [id number] [address] [place] [address] Oct, [facility] [address] [facility] [id number] [address] [place] [address] Oct, [facility] [address] [facility] [id number] [address] [place] [address] Oct, [facility] [address] [facility] [id number] [address] [place] [address] Oct, [facility] [address] [facility] [id number] [address] [place] [address] Sep, [facility] [address] [facility] [id number] [address] [place] [address] Sep, [facility] [address] [facility] [id number] [address] [place] [address] Sep, [facility] [address] [facility] [id number] [address] [place] [address] Sep, [facility] [address] [facility] [id number] [address] [place] [address] Sep, 2014 [facility] [address] [id number] [address] [place] [address], [place] [address] Sep, 2014 [facility] [address] [id number] [address] [place] [address], [place] [address] Sep, 2014 [facility] [address] [id number] [address] [place] [address], [place] [address] Sep, 2014 [facility] [address] [id number] [address] [place] [address], [place] [address] Sep, 2014 [facility] [address] [id number] [address] [place] [address], [place] [address] Sep, [facility] [address] [id number] [address] [place] [address], [place] [address] Aug, [facility] [address] [id number] [address] [place] [address], [place] [address] Aug, [facility] [address] [id number] [address] [place] [address], [place] [address] Jul, [facility] [address] [id number] [address] [place] [address], [place] [address] Jul, [facility] [address] [id number] [address] [place] [address], [place] [address] 18 Jul, 2014 [facility] [address] [id number] [address] [place] [address], [place] [address] 18 Jul, 2014 [facility] [address] [id number] [address] [place] [address], [place] [address] Jul, [facility] [address] [id number] [address] [place] [address], [place] [address] Jul, [facility] [address] [id number] [address] [place] [address], [place] [address] 05 Jul, 2014 [facility] [address] [id number] [address] [place] [address], [place] [address] 05 Jul, 2014 [facility] [address] [id number] [address] [place] [address], [place] [address] Jul, [facility] [address] [id number] [address] [place] [address], [place] [address] Jul, [facility] [address] [id number] [address] [place] [address], [place] [address] Jul, [facility] [address] [id number] [address] [place] [address], [place] [address] Jul, [facility] [address] [id number] [address] [place] [address], [place] [address] Jun, [facility] [address] [id number] [address] [place] [address], [place] [address] Jun, [facility] [address] [id number] [address] [place] [address], [place] [address] May, [facility] [address] [id number] [address] [place] [address], [place] [address] May, [facility] [address] [id number] [address] [place] [address], [place] [address] May, [facility] [address] [id number] [address] [place] [address], [place] [address] May, [facility] [address] [id number] [address] [place] [address], [place] [address] May, [facility] [address] [id number] [address] [place] [address], [place] [address] May, [facility] [address] [id number] [address] [place] [address], [place] [address] May, [facility] [address] [id number] [address] [place] [address], [place] [address] May, [facility] [address] [id number] [address] [place] [address], [place] [address] May, [facility] [address] [id number] [address] [place] [address], [place] [address] May, [facility] [address] [id number] [address] [place] [address], [place] [address] May, [facility] [address] [id number] [address] [place] [address], [place] [address] May, [facility] [address] [id number] [address] [place] [address], [place] [address] Apr, [facility] [address] [id number] [address] [place] [address], [place] [address] 30 Apr, 2014 [facility] [address] [id number] [address] [place] [address], [place] [address] Apr, [facility] [address] [id number] [address] [place] [address], [place] [address] Apr, [facility] [address] [id number] [address] [place] [address], [place] [address] Apr, [facility] [address] [id number] [address] [place] [address], [place] [address] Apr, [facility] [address] [id number] [address] [place] [address], [place] [address] Feb, [facility] [address] [id number] [address] [place] [address], [place] [address] Feb, [facility] [address] [id number] [address] [place] [address], [place] [address] Feb, [facility] [address] [id number] [address] [place] [address], [place] [address] Feb, [facility] [address] [id number] [address] [place] [address], [place] [address] Feb, [facility] [address] [id number] [address] [place] [address], [place] [address] Feb, [facility] [address] [id number] [address] [place] [address], [place] [address] Jan, [facility] [address] [id number] [address] [place] [address] Jan, [facility] [address] [id number] [facility] [place] [address] Jan, [facility] [address] [id number] [address] [place] [address], [place] [address] Jan, [facility] [address] [id number] [address] [place] [address], [place] [address] Jan, [facility] [address] [id number] [address] [place] [address], [place] [address] Jan, [facility] [address] [id number] [address] [place] [address], [place] [address] Jan, [facility] [address] [id number] [address] [place] [address], [place] [address] Jan, [facility] [address] [id number] [address] [place] [address], [place] [address] December, [facility] [address] [id number] [address] [place] [address], [place] [address] December, [facility] [address] [id number] [address] [place] [address], [place] [address] December, [facility] [address] [id number] [address] [place] [address], [place] [address] December, [facility] [address] [id number] [address] [place] [address], [place] [address] Nov, [facility] [address] [id number] [address] [place] [address], [place] [address] Nov, [facility] [address] [id number] [address] [place] [address], [place] [address] Nov, [facility] [address] [id number] [address] [place] [address], [place] [address] Nov, [facility] [address] [id number] [address] [place] [address], [place] [address] Nov, [facility] [address] [id number] [address] [place] [address], [place] [address] Nov, [facility] [address] [id number] [address] [place] [address], [place] [address] Nov, [facility] [address] [id number] [address] [place] [address], [place] [address] Nov, [facility] [address] [id number] [address] [place] [address], [place] [address] Oct, [facility] [address] [id number] [address] [place] [address], [place] [address] Oct, [facility] [address] [id number] [address] [place] [address], [place] [address] Sep, [facility] [address] [id number] [address] [place] [address], [place] [address] Sep, [facility] [address] [id number] [address] [place] [address], [place] [id number] Sep, [facility] [address] [id number] [address] [place] [address], [place] [address] Sep, [facility] [address] [id number] [address] [place] [address], [place] [address] Sep, [facility] [address] [id number] [address] [place] [address], [place] [address] Sep, [facility] [address] [id number] [address] [place] [address], [place] [address] Aug, [facility] [address] [id number] [address] [place] [address], [place] [address] Aug, [facility] [address] [id number] [address] [place] [address], [place] [address] Aug, [facility] [address] [id number] [address] [place] [address], [place] [address] Aug, [facility] [address] [id number] [address] [place] [address], [place] [address] Jul, [facility] [address] [id number] [address] [place] [address], [place] [address] Jul, [facility] [address] [id number] [address] [place] [address], [place] [address] Jul, [facility] [address] [id number] [address] [place] [address], [place] [address] Jul, [facility] [address] [id number] [address] [place] [address] Jun, [facility] [address] [id number] [address] [place] [address], [place] [address] Jun, [facility] [address] [id number] [address] [place] [address], [place] [address] May, [facility] [address] [id number] [address] [place] [address], [place] [address] May, [facility] [address] [id number] [address] [place] [address], [place] [address] May, [facility] [address] [id number] [address] [place] [address], [place] [address] May, [facility] [address] [id number] [address] [place] [address], [place] [address] May, [facility] [address] [id number] [address] [place] [address], [place] [address] 17 Apr, 2013 [facility] [address] [id number] [address] [place] [address] 10 Apr, 2013 [facility] [address] [id number] [address] [place] [address], [place] [address] 29 Mar, 2013 [facility] [address] [id number] [address] [place] [address], [place] [address] Mar, [facility] [address] [id number] [address] [place] [address], [place] [address] 15 Mar, 2013 [facility] [address] [id number] [address] [place] [address], [place] [address] Mar, [facility] [address] [id number] [address] [place] [address], [place] [address] Feb, [facility] [address] [id number] [address] [place] [address], [place] [address] Feb, [facility] [address] [id number] [address] [place] [address], [place] [address] Feb, [facility] [address] [id number] [address] [place] [address], [place] [address] Feb, [facility] [address] [id number] [address] [place] [address], [place] [address] Feb, [facility] [address] [id number] [address] [place] [address], [place] [address] Jan, [facility] [address] [id number] [address] [place] [address], [place] [address] Jan, [facility] [address] [id number] [address] [place] [address], [place] [address] Jan, [facility] [address] [id number] [address] [place] [address], [place] [address] Jan, [facility] [address] [id number] [address] [place] [address], [place] [address] Jan, [facility] [address] [id number] [address] [place] [address], [place] [address] December, [facility] [address] [id number] [address] [place] [address], [place] [address] December, [facility] [address] [id number] [address] [place] [address], [place] [address] Nov, [facility] [address] [id number] [address] [place] [address], [place] [address] Nov, [facility] [address] [id number] [address] [place] [address], [place] [address] Oct, [facility] [address] [id number] [address] [place] [address], [place] [address] 13 Oct, 2012 [facility] [address] [id number] [address] [place] [address], [place] [address] 05 Oct, 2012 [facility] [address] [id number] [address] [place] [address], [place] [address] 14 Sep, 2012 [facility] [address] [id number] [address] [place] [address], [place] [address] 24 Aug, 2012 [facility] [address] [id number] [address] [place] [address], [place] [address] 16 Aug, 2012 [facility] [address] [id number] [address] [place] [address], [place] [address] 15 Aug, 2012 [facility] [address] [id number] [address] [place] [address], [place] [address] Aug, [facility] [address] [id number] [address] [place] [address], [place] [address] Jul, [facility] [address] [id number] [address] [place] [address], [place] [address] Jul, [facility] [address] [id number] [address] [place] [address], [place] [address] Jul, [facility] [address] [id number] [address] [place] [address], [place] [address] Jul, [facility] [address] [id number] [address] [place] [address], [place] [address] Jul, [facility] [address] [id number] [address] [place] [address], [place] [address] Jul, [facility] [address] [id number] [address] [place] [address], [place] [address] Jul, [facility] [address] [id number] [address] [place] [address], [place] [address] Jul, [facility] [address] [id number] [address] [place] [address], [place] [address] Jun, [facility] [address] [id number] [address] [place] [address], [place] [address] Jun, [facility] [address] [id number] [address] [place] [address], [place] [address] Jun, [facility] [address] [id number] [address] [place] [address], [place] [address] Jun, [facility] [address] [id number] [address] [place] [address], [place] [address] Jun, [facility] [address] [id number] [address] [place] [address], [place] [address] Jun, [facility] [address] [id number] [address] [place] [address], [place] [address] May, [facility] [address] [id number] [address] [place] [address], [place] [address] May, [facility] [address] [id number] [address] [place] [address], [place] [address] May, [facility] [address] [id number] [address] [place] [address], [place] [address] May, [facility] [address] [id number] [address] [place] [address], [place] [address] Apr, [facility] [address] [id number] [address] [place] [address], [place] [address] Apr, [facility] [address] [id number] [address] [place] [address], [place] [address] Mar, [facility] [address] [id number] [address] [place] [address], [place] [address] Jan, [facility] [address] [id number] [address] [place] [address], [place] [address] Jan, [facility] [address] [id number] [address] [place] [address], [place] [address] 16 Jan, 2012 [facility] [address] [id number] [address] [place] [address], [place] [address] 15 Jan, 2012 [facility] [address] [id number] [address] [place] [address], [place] [address] Jan, [facility] [address] [id number] [address] [place] [address], [place] [address] 14 Jan, 2012 [facility] [address] [id number] [address] [place] [address], [place] [address] Jan, [facility] [address] [id number] [address] [place] [address], [place] [address] December, [facility] [address] [id number] [address] [place] [address], [place] [address] December, [facility] [address] [id number] [address] [place] [address], [place] [address] December, [facility] [address] [id number] [address] [place] [address], [place] [address] December, [facility] [address] [id number] [address] [place] [address], [place] [address] Nov, [facility] [address] [id number] [address] [place] [address], [place] [address] Nov, [facility] [address] [id number] [address] [place] [address], [place] [address] Oct, [facility] [address] [id number] [address] [place] [address], [place] [address] Oct, [facility] [address] [id number] [address] [place] [address], [place] [address] 15 Oct, 2011 [facility] [address] [id number] [address] [place] [address], [place] [address] Sep, [facility] [address] [id number] [address] [place] [address], [place] [address] Sep, [facility] [address] [id number] [address] [place] [address], [place] [address] Sep, [facility] [address] [id number] [address] [place] [address], [place] [address] Aug, [facility] [address] [id number] [address] [place] [address], [place] [address] Aug, [facility] [address] [id number] [address] [place] [address], [place] [address] Aug, [facility] [address] [id number] [address] [place] [address], [place] [address] Aug, [facility] [address] [id number] [address] [place] [address], [place] [address] Aug, [facility] [address] [id number] [address] [place] [address], [place] [address] Aug, [facility] [address] [id number] [address] [place] [address], [place] [address] Aug, [facility] [address] [id number] [address] [place] [address], [place] [address] Jul, [facility] [address] [id number] [address] [place] [address], [place] [address] Jul, [facility] [address] [id number] [address] [place] [address], [place] [address] Jun, [facility] [address] [id number] [address] [place] [address], [place] [address] 28 Jun, 2011 [facility] [address] [id number] [address] [place] [address], [place] [address] 17 Jun, 2011 [facility] [address] [id number] [address] [place] [address], [place] [address] 15 Jun, 2011 [facility] [address] [id number] [address] [place] [address], [place] [address] 14 Jun, 2011 [facility] [address] [id number] [address] [place] [address], [place] [phone] 14 Jun, 2011 [facility] [address] [id number] [address] [place] [address], [place] [id number] 07 Jun, 2011 [facility] [address] [id number] [address] [place] [address], [place] [phone] Jun, [facility] [address] [id number] [address] [place] [address], [place] [address] Jun, [facility] [address] [id number] [address] [place] [address], [place] [address] Jun, [facility] [address] [id number] [address] [place] [address], [place] [phone] May, [facility] [address] [id number] [address] [place] [address], [place] [address] May, [facility] [address] [id number] [address] [place] [address], [place] [address] May, [facility] [address] [id number] [address] [place] [address], [place] [address] May, [facility] [address] [id number] [address] [place] [address], [place] [address] May, [facility] [address] [id number] [address] [place] [address], [place] [address] May, [facility] [address] [id number] [address] [place] [address], [place] [address] Feb, [facility] [address] [id number] [address] [place] [address], [place] [address] December, [facility] [address] [id number] [address] [place] [address], [place] [address] Jul, [facility] [address] [id number] [address] [place] [address], [place] [address] Jul, [facility] [address] [id number] [address] [place] [address], [place] [address] Jul, [facility] [address] [id number] [address] [place] [address], [place] [address] Jul, [facility] [address] [id number] [address] [place] [id number] Jun, [facility] [address] [id number] [address] [place] [id number] Jul, [facility] [address] [id number] [address] [place] [phone] Jul, [facility] [address] [id number] [address] [place] [phone] Jul, [facility] [address] [id number] [address] [place] [id number] Jul, [facility] [address] [id number] [address] [place] [id number] Jul, [facility] [address] [id number] [address] [place] [phone] Jul, [facility] [address] [id number] [address] [place] [id number] Jan, [facility] [address] [id number] [address] [place] [phone] Sep, [facility] [address] [id number] [address] [place] [id number] Sep, IMMUNIZATIONS No Known Immunizations SOCIAL HISTORY [...]
--- OUTSIDE RECORDS SUMMARY | 2020-01-27 10:14 | XMS REPORT ---
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 Name Role Phone LETTY WILKINS Unavailable PROBLEMS Type Condition ICD9-CM Code [id number] Code Onset Dates Condition S tatus SNOMED Code Problem Hypertension I10 Active 2376911 3 Problem Generalized anxiety disorder F41.1 A ctive 746545159 Problem History of colon polyps Z86.010 Active 534123576 Problem History of diverticulitis Z87.19 Acti ve 827040614003299 Problem Family history of diabetes mellitus Z83.3 Active 788769035 Problem Excessive and frequent menstruation with irregular cycle N92.1 Active 073661596 Problem Hot flashes N95.1 Active 43165962 8 Problem Gastroesophageal reflux disease with esophagitis K 21.0 Active 021248090 Problem History of ovarian cyst Z87.42 Active 65072629 Problem Diverticulitis K57.92 Active 34474 6006 Problem Dense breast tissue R92.2 Active 902118333 Problem Perimenopausal N95.1 Active 32574 2208805265 Problem Mitral valve prolapse I34.1 Active 003048363 Problem Abnormal uterine bleeding (AUB) N93.9 Active 50244620689868 Problem Tachycardia R00.0 Active 1080088 ALLERGIES No Information ENCOUNTERS Encounter Location Date Diagnosis [facility] [address] [facility] [id number] [address] [place] [phone] May, [facility] [address] [id number] [address] [place] [phone] May, [facility] [address] [facility] [id number] [address] [place] [phone] Apr, [facility] [address] [id number] [address] [place] [phone] Mar, Caries K02.9 ; Dental examin ation Z01.20 ; Periodontitis K05.30 and Oral health maintenance status requiring routine preventive dental care K08.9 [facility] [address] [id number] [address] [place] [id number] Mar, Generalized anxiety disorder F41.1 [facility] [address] [facility] [id number] [address] [place] [phone] Mar, Gastrointestinal hemorrhage associated with gastroduodenitis K29.91 [facility] [address] [id number] [address] [place] [phone] Mar, Generalized anxiety disorder F41.1 and Bereavement Z63.4 [facility] [address] [facility] [id number] [address] [place] [phone] Mar, [facility] [address] [facility] [id number] [address] [place] [phone] Mar, [facility] [address] [facility] [id number] [address] [place] [phone] Mar, [facility] [address] [facility] [id number] [address] [place] [phone] Mar, Tachycardia R00.0 and Essent ial hypertension I10 [facility] [address] [facility] [id number] [address] [place] [phone] Feb, Generalized anxiety disorder F41.1 [facility] [address] [facility] [id number] [address] [place] [phone] Feb, Generalized anxiety disorder F41.1 and Bereavement Z63.4 [facility] [address] [facility] [id number] [address] [place] [phone] Feb, Generalized anxiety disorder F41.1 [facility] [address] [facility] [id number] [address] [place] [phone] Feb, Generalized anxiety disorder F41.1 and Bereavement Z63.4 [facility] [address] [facility] [id number] [address] [place] [phone] 27 Jan, 2019 [facility] [address] [id number] [address] [place] [phone] 20 Jan, 2019 Breast cancer screening by trenton crenshaw Z12.31 [facility] [address] [facility] [id number] [address] [place] [id number] 13 Jan, 2019 Generalized anxiety disorder F41.1 and Bereavement Z63.4 [facility] [address] [facility] [id number] [address] [place] [phone] Jan, [facility] [address] [facility] [id number] [address] [place] [phone] December, Generalized anxiety disorder F41.1 and Bereavement Z63.4 [place] [id number] [facility] [id number] [address] [place] [id number] December, Diverticulitis K57.92 ; Dysu nick R30.0 ; Other constipation K59.09 and Lower abdominal pain R10.30 [facility] [address] [facility] [id number] [address] [place] [phone] Nov, Diverticulitis K57.92 [place] [address] [facility] [id number] [address] [place] [phone] Nov, Generalized anxiety disorder F41.1 and Bereavement Z63.4 [facility] [address] [facility] [id number] [address] [place] [phone] Nov, Generalized anxiety disorder F41.1 and Bereavement Z63.4 [facility] [address] [facility] [id number] [address] [place] [phone] Nov, Diverticulitis K57.92 [facility] [address] [facility] [id number] [address] [place] [phone] Oct, Diverticulitis K57.92 [facility] [address] [facility] [id number] [address] [place] [phone] Oct, Diverticulitis K57.92 [facility] [address] [facility] [id number] [address] [place] [phone] Oct, Generalized anxiety disorder F41.1 [facility] [address] [facility] [id number] [address] [place] [phone] Oct, Right lower quadrant abdomin al pain R10.31 and Diverticulitis K57.92 [facility] [address] [facility] [id number] [address] [place] [phone] Sep, Generalized anxiety disorder F41.1 and Bereavement Z63.4 [facility] [address] [facility] [id number] [address] [place] [phone] Aug, [facility] [address] [facility] [id number] [address] [place] [phone] Aug, Generalized anxiety disorder F41.1 and Bereavement Z63.4 [facility] [address] [facility] [id number] [place] [address] Aug, Caries K02.9 [facility] [address] [facility] [id number] [address] [place] [phone] Jul, Generalized anxiety disorder F41.1 and Bereavement Z63.4 [facility] [address] [facility] [id number] [address] [place] [phone] Jul, Other acute gastritis withou t hemorrhage K29.00 ; Generalized anxiety disorder F41.1 ; Tachycardia R00.0 and Essential hypertension I10 [facility] [address] [facility] [id number] [address] [place] [phone] Jul, Generalized anxiety disorder F41.1 and Bereavement Z63.4 [facility] [address] [facility] [id number] [address] [place] [phone] Jun, Generalized anxiety disorder F41.1 and Bereavement Z63.4 [facility] [address] [facility] [id number] [address] [place] [phone] Jun, Generalized anxiety disorder F41.1 and Bereavement Z63.4 [facility] [address] [id number] [address] [place] [address] Jun, Dental examination Z01.20 [facility] [address] [facility] [id number] [address] [place] [phone] May, Generalized anxiety disorder F41.1 and Bereavement Z63.4 [facility] [address] [facility] [id number] [address] [place] [phone] May, Encounter for immunization Z 23 [facility] [address] [facility] [id number] [address] [place] [phone] May, Generalized anxiety disorder F41.1 and Bereavement Z63.4 [facility] [address] [facility] [id number] [address] [place] [phone] May, [facility] [address] [facility] [id number] [address] [place] [phone] 24 Apr, 2018 Generalized anxiety disorder F41.1 and Bereavement Z63.4 [facility] [address] [facility] [id number] [address] [place] [phone] 17 Apr, 2018 [facility] [address] [facility] [id number] [address] [place] [id number] 13 Apr, 2018 Diverticulitis K57.92 [facility] [address] [facility] [id number] [address] [place] [phone] 10 Apr, 2018 Generalized anxiety disorder F41.1 and Bereavement Z63.4 [facility] [address] [facility] [id number] [address] [place] [id number] Mar, [facility] [address] [facility] [id number] [address] [place] [phone] Mar, Diverticulitis K57.92 [facility] [address] [facility] [id number] [address] [place] [phone] Mar, Generalized anxiety disorder F41.1 and Bereavement Z63.4 [place] [address] [id number] [address] [place] [id number] Mar, Hypertension I10 [facility] [address] [id number] [address] [place] [id number] Mar, Generalized anxiety disorder F41.1 and Bereavement Z63.4 [facility] [address] [id number] [address] [place] [phone] Feb, Generalized anxiety disorder F41.1 and Bereavement Z63.4 [facility] [address] [id number] [address] [place] [phone] Feb, [facility] [address] [id number] [address] [place] [phone] Feb, Generalized anxiety disorder F41.1 and Bereavement Z63.4 [facility] [address] [id number] [address] [place] [phone] Feb, Generalized anxiety disorder F41.1 and Bereavement Z63.4 [facility] [address] [id number] [address] [place] [id number] Jan, Hypertension I10 and Acute n on-recurrent maxillary sinusitis J01.00 [facility] [address] [id number] [address] [place] [id number] December, [facility] [address] [id number] [address] [place] [phone] December, Hypertension I10 [facility] [address] [id number] [address] [place] [phone] December, Generalized anxiety disorder F41.1 [facility] [address] [id number] [place] [address] Oct, Encounter for dental examina tion Z01.20 [facility] [address] [id number] [place] [address] 06 Oct, 2017 Encounter for dental examina tion Z01.20 [facility] [address] [id number] [place] [address] 02 Oct, 2017 Dental examination Z01.20 [facility] [address] [id number] [address] [place] [phone] Oct, Generalized anxiety disorder F41.1 [facility] [address] [id number] [place] [address] Aug, Dental examination Z01.20 [facility] [address] [id number] [address] [place] [phone] Aug, Generalized anxiety disorder F41.1 [facility] [address] [id number] [address] [place] [phone] Aug, [facility] [address] [id number] [place] [address] Aug, Encounter for dental examina tion Z01.20 [facility] [address] [id number] [address] [place] [id number] Aug, Subacute maxillary sinusitis J01.00 [facility] [address] [id number] [address] [place] [phone] 22 Jul, 2017 Dental examination Z01.20 [facility] [address] [id number] [address] [place] [phone] Jul, Generalized anxiety disorder F41.1 [facility] [address] [id number] [address] [place] [id number] 11 Jul, 2017 Diverticulitis K57.92 [facility] [address] [id number] [address] [place] [phone] 28 Jun, 2017 Encounter for immunization Z 23 [facility] [address] [id number] [place] [address] 22 Jun, 2017 Dental examination Z01.20 [facility] [address] [id number] [address] [place] [phone] Jun, Generalized anxiety disorder F41.1 [facility] [address] [id number] [address] [place] [phone] Jun, Dental examination Z01.20 [facility] [address] [id number] [address] [place] [phone] May, [facility] [address] [id number] [address] [place] [id number] May, Dental examination Z01.20 [facility] [address] [id number] [address] [place] [id number] May, Dental examination Z01.20 [facility] [address] [id number] [address] [place] [phone] May, Dental examination Z01.20 [facility] [address] [id number] [address] [place] [phone] May, [facility] [address] [id number] [address] [place] [phone] May, Generalized anxiety disorder F41.1 [facility] [address] [id number] [address] [place] [id number] May, Localized edema R60.0 ; Yeas t vaginitis B37.3 and Gastroesophageal reflux disease with esophagitis K21.0 [facility] [address] [id number] [address] [place] [address] [id number] Apr, Dental examination Z01.20 [facility] [address] [id number] [address] [place] [address] Apr, Dental examination Z01.20 [facility] [address] [id number] [address] [place] [phone] Apr, Dental examination Z01.20 [facility] [address] [id number] [address] [place] [id number] Mar, Dyspepsia R10.13 [facility] [address] [id number] [address] [place] [phone] Mar, Generalized anxiety disorder F41.1 [facility] [address] [id number] [place] [address] Mar, Encounter for dental examina tion Z01.20 [facility] [address] [id number] [address] [place] [address] [id number] Mar, [facility] [address] [id number] [address] [place] [address] [id number] Mar, Dental examination Z01.20 [facility] [address] [id number] [address] [place] [phone] Feb, Hypertension I10 and Tachyca rdia R00.0 [facility] [address] [id number] [place] [address] Feb, [facility] [address] [id number] [address] [place] [phone] Feb, Generalized anxiety disorder F41.1 [facility] [address] [id number] [address] [place] [id number] Feb, Dental examination Z01.20 [facility] [address] [id number] [address] [place] [phone] Jan, Generalized anxiety disorder F41.1 [facility] [address] [id number] [address] [place] [phone] December, Generalized anxiety disorder F41.1 [facility] [address] [id number] [address] [place] [address] [id number] December, Encounter for dental examina tion Z01.20 [facility] [address] [id number] [address] [place] [phone] Nov, [facility] [address] [id number] [address] [place] [phone] Nov, [facility] [address] [id number] [address] [place] [phone] Nov, Generalized anxiety disorder F41.1 [facility] [address] [facility] [id number] [address] [place] [phone] 30 Oct, 2016 [facility] [address] [facility] [id number] [address] [place] [address] [id number] Oct, Dental examination Z01.20 [facility] [address] [place] [id number] [address] [place] [phone] Oct, Vaginal dryness N89.8 [facility] [address] [facility] [id number] [address] [place] [phone] Oct, Pseudoseizures F44.5 [facility] [address] [place] [id number] [address] [place] [phone] Oct, Generalized anxiety disorder F41.1 [facility] [id number] [place] [phone] Sep, Abnormal uterine bleeding (A UB) N93.9 ; Vaginal dryness N89.8 and Screening breast examination Z12.39 [facility] [id number] [place] [id number] Sep, Dental examination Z01.20 [facility] [address] [place] [id number] [address] [place] [phone] Sep, Generalized anxiety disorder F41.1 [facility] [address] [place] [id number] [address] [place] [id number] 06 Sep, 2016 Unspecified ovarian cyst, ri ght side N83.201 ; Unspecified ovarian cyst, left side N83.202 ; Yeast infection of the vagina B37.3 ; Mitral valve prolapse I34.1 and Hypertension I10 [facility] [address] [place] [id number] [address] [place] [phone] Aug, Generalized anxiety disorder F41.1 [facility] [address] [place] [id number] [address] [place] [phone] Jul, [place] [address] [facility] [id number] [address] [place] [phone] Jul, Generalized anxiety disorder F41.1 [facility] [address] [facility] [id number] [address] [place] [id number] 15 Jun, 2016 Generalized anxiety disorder F41.1 [facility] [address] [facility] [id number] [address] [place] [phone] 28 May, 2016 Encounter for immunization Z 23 [facility] [address] [facility] [id number] [address] [place] [id number] 17 May, 2016 Generalized anxiety disorder F41.1 and Depressive disorder, not elsewhere classified F32.9 [facility] [address] [facility] [id number] [address] [place] [phone] 28 Apr, 2016 Hypertension I10 [facility] [address] [facility] [id number] [address] [place] [phone] 22 Apr, 2016 Cervicalgia M54.2 [facility] [address] [facility] [id number] [address] [place] [phone] 12 Apr, 2016 Cervicalgia M54.2 [facility] [address] [facility] [id number] [address] [place] [phone] 09 Mar, 2016 Generalized anxiety disorder F41.1 and Depressive disorder, not elsewhere classified F32.9 [facility] [id number] [place] [address] [id number] 14 Feb, 2016 Visit for dental examination Z01.20 [facility] [address] [facility] [id number] [address] [place] [id number] 11 Feb, 2016 Pseudoseizures F44.5 ; Migra ine without status migrainosus, not intractable, unspecified migraine type G43.909 and Essential hypertension I10 [facility] [address] [place] [id number] [address] [place] [address] [id number] 06 Feb, 2016 Dental examination Z01.20 [facility] [address] [facility] [id number] [address] [place] [phone] 05 Feb, 2016 Generalized anxiety disorder F41.1 and Depressive disorder, not elsewhere classified F32.9 [facility] [address] [facility] [id number] [address] [place] [phone] Jan, Tachycardia R00.0 [facility] [address] [facility] [id number] [address] [place] [phone] December, Eustachian tube dysfunction, bilateral H69.83 [facility] [address] [facility] [id number] [address] [place] [phone] December, Generalized anxiety disorder F41.1 and Depressive disorder, not elsewhere classified F32.9 [facility] [address] [facility] [id number] [address] [place] [phone] Nov, [facility] [address] [facility] [id number] [address] [place] [id number] Nov, [place] [address] [facility] [id number] [address] [place] [id number] Nov, Hypertension I10 ; Onychomyc osis B35.1 [...] cyst of left ovary N83.29 [facility] [address] [facility] [id number] [address] [place] [id number] 14 Nov, 2015 Sinusitis J32.9 [facility] [address] [facility] [id number] [address] [place] [id number] Oct, Complex cyst of left ovary N 83.29 [facility] [address] [facility] [id number] [address] [place] [phone] Oct, Onychomycosis B35.1 [facility] [address] [id number] [address] [place] [id number] 17 Oct, 2016 Dental examination Z01.20 [place] [address] [place] [id number] [place] [phone] 09 Oct, 2016 Well woman exam Z01.419 [...] R92.2 and History of colon polyps Z86.010 [place] [address] [place] [id number] [address] [place] [id number] Oct, Generalized anxiety disorder F41.1 and Depressive disorder, not elsewhere classified F32.9 [place] [address] [id number] Sep, Hypertension I10 and Onychom ycosis B35.1 [place] [address] [phone] 16 Sep, 2015 Skin tags, multiple acquired L91.8 [place] [address] [place] [id number] [address] [place] [phone] Aug, [place] [address] [place] [id number] [address] [place] [id number] Aug, [place] [address] [place] [id number] [address] [place] [phone] Aug, [place] [address] [place] [id number] [place] [phone] Aug, Generalized anxiety disorder F41.1 and Depressive disorder, not elsewhere classified F32.9 [place] [address] [place] [id number] [address] [place] [phone] Jul, Skin lesion L98.9 [facility] [address] [id number] [address] [place] [phone] Jun, Generalized anxiety disorder F41.1 and Depressive disorder, not elsewhere classified F32.9 [facility] [address] [id number] [address] [place] [id number] Jun, [facility] [address] [id number] [address] [place] [id number] Jun, Generalized anxiety disorder F41.1 [facility] [address] [id number] [address] [place] [phone] May, Encounter for immunization Z 23 and Right shoulder pain M25.511 [facility] [address] [address] [id number] [address] [place] [id number] Apr, [facility] [address] [id number] [address] [place] [id number] 14 Apr, 2015 Generalized anxiety disorder 300.02 and Depressive disorder, not elsewhere classified 311 [facility] [address] [id number] [address] [place] [id number] Mar, Dental examination V72.2 [facility] [address] [id number] [address] [place] [id number] Mar, Generalized anxiety disorder 300.02 and Depressive disorder, not elsewhere classified 311 [facility] [address] [id number] [address] [place] [id number] Mar, Depression, major, recurrent , 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.35 and 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 [facility] [address] [id number] [address] [place] [id number] Feb, Generalized anxiety disorder 300.02 and Depressive disorder, not elsewhere classified 311 [facility] [address] [id number] [address] [place] [id number] Feb, Dental examination V72.2 [facility] [address] [id number] [address] [place] [id number] Jan, Generalized anxiety disorder 300.02 and Depressive disorder, not elsewhere classified 311 [facility] [address] [id number] [address] [place] [phone] Jan, [facility] [address] [facility] [id number] [address] [place] [id number] December, Generalized anxiety disorder 300.02 and Depressive disorder, not elsewhere classified 311 [facility] [address] [facility] [id number] [address] [place] [phone] December, Major depressive disorder, r ecurrent, unspecified 296.30 and Panic disorder with agoraphobia 300.21 [facility] [address] [facility] [id number] [address] [place] [id number] Nov, [facility] [address] [facility] [id number] [address] [place] [id number] Nov, [facility] [address] [facility] [id number] [address] [place] [phone] Oct, [facility] [address] [facility] [id number] [address] [place] [phone] Oct, [facility] [address] [facility] [id number] [address] [place] [phone] Oct, [facility] [address] [facility] [id number] [address] [place] [phone] Oct, [facility] [address] [facility] [id number] [address] [place] [phone] Sep, [facility] [address] [facility] [id number] [address] [place] [phone] Sep, [facility] [address] [facility] [id number] [address] [place] [phone] Sep, [facility] [address] [facility] [id number] [address] [place] [phone] Sep, [facility] [address] [facility] [id number] [address] [place] [phone] Sep, 2014 [facility] [address] [id number] [address] [place] [address], [place] [address] Sep, 2014 [facility] [address] [id number] [address] [place] [address], [place] [address] Sep, 2014 [facility] [address] [id number] [address] [place] [address], [place] [id number] Sep, 2014 [facility] [address] [id number] [address] [place] [address], [place] [address] Sep, 2014 [facility] [address] [id number] [address] [place] [address], [place] [address] Sep, [facility] [address] [id number] [address] [place] [address], [place] [address] Aug, [facility] [address] [id number] [address] [place] [address], [place] [address] Aug, [facility] [address] [id number] [address] [place] [address], [place] [address] Jul, [facility] [address] [id number] [address] [place] [address], [place] [address] Jul, [facility] [address] [id number] [address] [place] [address], [place] [address] 18 Jul, 2014 [facility] [address] [id number] [address] [place] [address], [place] [address] 18 Jul, 2014 [facility] [address] [id number] [address] [place] [address], [place] [address] Jul, [facility] [address] [id number] [address] [place] [address], [place] [address] Jul, [facility] [address] [id number] [address] [place] [address], [place] [address] 05 Jul, 2014 [facility] [address] [id number] [address] [place] [address], [place] [address] 05 Jul, 2014 [facility] [address] [id number] [address] [place] [address], [place] [address] Jul, [facility] [address] [id number] [address] [place] [address], [place] [address] Jul, [facility] [address] [id number] [address] [place] [address], [place] [address] Jul, [facility] [address] [id number] [address] [place] [address], [place] [address] Jul, [facility] [address] [id number] [address] [place] [address], [place] [address] Jun, [facility] [address] [id number] [address] [place] [address], [place] [address] Jun, [facility] [address] [id number] [address] [place] [address], [place] [address] May, [facility] [address] [id number] [address] [place] [address], [place] [address] May, [facility] [address] [id number] [address] [place] [address], [place] [address] May, [facility] [address] [id number] [address] [place] [address], [place] [address] May, [facility] [address] [id number] [address] [place] [address], [place] [address] May, [facility] [address] [id number] [address] [place] [address], [place] [address] May, [facility] [address] [id number] [address] [place] [address], [place] [address] May, [facility] [address] [id number] [address] [place] [address], [place] [address] May, [facility] [address] [id number] [address] [place] [address], [place] [address] May, [facility] [address] [id number] [address] [place] [address], [place] [address] May, [facility] [address] [id number] [address] [place] [address], [place] [address] May, [facility] [address] [id number] [address] [place] [address], [place] [address] May, [facility] [address] [id number] [address] [place] [address], [place] [address] Apr, [facility] [address] [id number] [address] [place] [address], [place] [address] 30 Apr, 2014 [facility] [address] [id number] [address] [place] [address], [place] [address] Apr, [facility] [address] [id number] [address] [place] [address], [place] [address] Apr, [facility] [address] [id number] [address] [place] [address], [place] [address] Apr, [facility] [address] [id number] [address] [place] [address], [place] [address] Apr, [facility] [address] [id number] [address] [place] [address], [place] [address] Feb, [facility] [address] [id number] [address] [place] [address], [place] [address] Feb, [facility] [address] [id number] [address] [place] [address], [place] [address] Feb, [facility] [address] [id number] [address] [place] [address], [place] [address] Feb, [facility] [address] [id number] [address] [place] [address], [place] [address] Feb, [facility] [address] [id number] [address] [place] [address], [place] [address] Feb, [facility] [address] [id number] [address] [place] [address], [place] [address] Jan, [facility] [address] [id number] [address] [place] [phone] Jan, [facility] [address] [id number] [facility] [place] [address] Jan, [facility] [address] [id number] [address] [place] [address], [place] [address] Jan, [facility] [address] [id number] [address] [place] [address], [place] [address] Jan, [facility] [address] [id number] [address] [place] [address], [place] [address] Jan, [facility] [address] [id number] [address] [place] [address], [place] [address] Jan, [facility] [address] [id number] [address] [place] [address], [place] [address] Jan, [facility] [address] [id number] [address] [place] [address], [place] [address] December, [facility] [address] [id number] [address] [place] [address], [place] [address] December, [facility] [address] [id number] [address] [place] [address], [place] [address] December, [facility] [address] [id number] [address] [place] [address], [place] [address] December, [facility] [address] [id number] [address] [place] [address], [place] [address] Nov, [facility] [address] [id number] [address] [place] [address], [place] [address] Nov, [facility] [address] [id number] [address] [place] [address], [place] [address] Nov, [facility] [address] [id number] [address] [place] [address], [place] [address] Nov, [facility] [address] [id number] [address] [place] [address], [place] [address] Nov, [facility] [address] [id number] [address] [place] [address], [place] [address] Nov, [facility] [address] [id number] [address] [place] [address], [place] [address] Nov, [facility] [address] [id number] [address] [place] [address], [place] [address] Nov, [facility] [address] [id number] [address] [place] [address], [place] [address] Oct, [facility] [address] [id number] [address] [place] [address], [place] [address] Oct, [facility] [address] [id number] [address] [place] [address], [place] [address] Sep, [facility] [address] [id number] [address] [place] [address], [place] [address] Sep, [facility] [address] [id number] [address] [place] [address], [place] [id number] Sep, [facility] [address] [id number] [address] [place] [address], [place] [address] Sep, [facility] [address] [id number] [address] [place] [address], [place] [address] Sep, [facility] [address] [id number] [address] [place] [address], [place] [address] Sep, [facility] [address] [id number] [address] [place] [address], [place] [address] Aug, [facility] [address] [id number] [address] [place] [address], [place] [address] Aug, [facility] [address] [id number] [address] [place] [address], [place] [address] Aug, [facility] [address] [id number] [address] [place] [address], [place] [address] Aug, [facility] [address] [id number] [address] [place] [address], [place] [address] Jul, [facility] [address] [id number] [address] [place] [address], [place] [address] Jul, [facility] [address] [id number] [address] [place] [address], [place] [address] Jul, [facility] [address] [id number] [address] [place] [address], [place] [address] Jul, [facility] [address] [id number] [address] [place] [id number] Jun, [facility] [address] [id number] [address] [place] [address], [place] [address] Jun, [facility] [address] [id number] [address] [place] [address], [place] [address] May, [facility] [address] [id number] [address] [place] [address], [place] [address] May, [facility] [address] [id number] [address] [place] [address], [place] [address] May, [facility] [address] [id number] [address] [place] [address], [place] [address] May, [facility] [address] [id number] [address] [place] [address], [place] [address] May, [facility] [address] [id number] [address] [place] [address], [place] [address] 17 Apr, 2013 [facility] [address] [id number] [address] [place] [id number] 10 Apr, 2013 [facility] [address] [id number] [address] [place] [address], [place] [address] 29 Mar, 2013 [facility] [address] [id number] [address] [place] [address], [place] [address] Mar, [facility] [address] [id number] [address] [place] [address], [place] [address] 15 Mar, 2013 [facility] [address] [id number] [address] [place] [address], [place] [address] Mar, [facility] [address] [id number] [address] [place] [address], [place] [address] Feb, [facility] [address] [id number] [address] [place] [address], [place] [address] Feb, [facility] [address] [id number] [address] [place] [address], [place] [address] Feb, [facility] [address] [id number] [address] [place] [address], [place] [address] Feb, [facility] [address] [id number] [address] [place] [address], [place] [address] Feb, [facility] [address] [id number] [address] [place] [address], [place] [address] Jan, [facility] [address] [id number] [address] [place] [address], [place] [address] Jan, [facility] [address] [id number] [address] [place] [address], [place] [address] Jan, [facility] [address] [id number] [address] [place] [address], [place] [address] Jan, [facility] [address] [id number] [address] [place] [address], [place] [address] Jan, [facility] [address] [id number] [address] [place] [address], [place] [address] December, [facility] [address] [id number] [address] [place] [address], [place] [address] December, [facility] [address] [id number] [address] [place] [address], [place] [address] Nov, [facility] [address] [id number] [address] [place] [address], [place] [address] Nov, [facility] [address] [id number] [address] [place] [address], [place] [address] Oct, [facility] [address] [id number] [address] [place] [address], [place] [address] 13 Oct, 2012 [facility] [address] [id number] [address] [place] [address], [place] [address] 05 Oct, 2012 [facility] [address] [id number] [address] [place] [address], [place] [address] 14 Sep, 2012 [facility] [address] [id number] [address] [place] [address], [place] [address] 24 Aug, 2012 [facility] [address] [id number] [address] [place] [address], [place] [address] 16 Aug, 2012 [facility] [address] [id number] [address] [place] [address], [place] [address] 15 Aug, 2012 [facility] [address] [id number] [address] [place] [address], [place] [address] Aug, [facility] [address] [id number] [address] [place] [address], [place] [address] Jul, [facility] [address] [id number] [address] [place] [address], [place] [address] Jul, [facility] [address] [id number] [address] [place] [address], [place] [address] Jul, [facility] [address] [id number] [address] [place] [address], [place] [address] Jul, [facility] [address] [id number] [address] [place] [address], [place] [address] Jul, [facility] [address] [id number] [address] [place] [address], [place] [address] Jul, [facility] [address] [id number] [address] [place] [address], [place] [address] Jul, [facility] [address] [id number] [address] [place] [address], [place] [address] Jul, [facility] [address] [id number] [address] [place] [address], [place] [address] Jun, [facility] [address] [id number] [address] [place] [address], [place] [address] Jun, [facility] [address] [id number] [address] [place] [address], [place] [address] Jun, [facility] [address] [id number] [address] [place] [address], [place] [address] Jun, [facility] [address] [id number] [address] [place] [address], [place] [address] Jun, [facility] [address] [id number] [address] [place] [address], [place] [address] Jun, [facility] [address] [id number] [address] [place] [address], [place] [address] May, [facility] [address] [id number] [address] [place] [address], [place] [address] May, [facility] [address] [id number] [address] [place] [address], [place] [address] May, [facility] [address] [id number] [address] [place] [address], [place] [address] May, [facility] [address] [id number] [address] [place] [address], [place] [address] Apr, [facility] [address] [id number] [address] [place] [address], [place] [address] Apr, [facility] [address] [id number] [address] [place] [address], [place] [address] Mar, [facility] [address] [id number] [address] [place] [address], [place] [address] Jan, [facility] [address] [id number] [address] [place] [address], [place] [address] Jan, [facility] [address] [id number] [address] [place] [address], [place] [address] 16 Jan, 2012 [facility] [address] [id number] [address] [place] [address], [place] [address] 15 Jan, 2012 [facility] [address] [id number] [address] [place] [address], [place] [address] Jan, [facility] [address] [id number] [address] [place] [address], [place] [address] 14 Jan, 2012 [facility] [address] [id number] [address] [place] [address], [place] [address] Jan, [facility] [address] [id number] [address] [place] [address], [place] [address] December, [facility] [address] [id number] [address] [place] [address], [place] [address] December, [facility] [address] [id number] [address] [place] [address], [place] [address] December, [facility] [address] [id number] [address] [place] [address], [place] [address] December, [facility] [address] [id number] [address] [place] [address], [place] [address] Nov, [facility] [address] [id number] [address] [place] [address], [place] [address] Nov, [facility] [address] [id number] [address] [place] [address], [place] [address] Oct, [facility] [address] [id number] [address] [place] [address], [place] [address] Oct, [facility] [address] [id number] [address] [place] [address], [place] [address] 15 Oct, 2011 [facility] [address] [id number] [address] [place] [address], [place] [address] Sep, [facility] [address] [id number] [address] [place] [address], [place] [address] Sep, [facility] [address] [id number] [address] [place] [address], [place] [address] Sep, [facility] [address] [id number] [address] [place] [address], [place] [address] Aug, [facility] [address] [id number] [address] [place] [address], [place] [address] Aug, [facility] [address] [id number] [address] [place] [address], [place] [address] Aug, [facility] [address] [id number] [address] [place] [address], [place] [address] Aug, [facility] [address] [id number] [address] [place] [address], [place] [address] Aug, [facility] [address] [id number] [address] [place] [address], [place] [address] Aug, [facility] [address] [id number] [address] [place] [address], [place] [address] Aug, [facility] [address] [id number] [address] [place] [address], [place] [address] Jul, [facility] [address] [id number] [address] [place] [address], [place] [address] Jul, [facility] [address] [id number] [address] [place] [address], [place] [address] Jun, [facility] [address] [id number] [address] [place] [address], [place] [address] 28 Jun, 2011 [facility] [address] [id number] [address] [place] [address], [place] [address] 17 Jun, 2011 [facility] [address] [id number] [address] [place] [address], [place] [address] 15 Jun, 2011 [facility] [address] [id number] [address] [place] [address], [place] [address] 14 Jun, 2011 [facility] [address] [id number] [address] [place] [address], [place] [address] 14 Jun, 2011 [facility] [address] [id number] [address] [place] [address], [place] [address] 07 Jun, 2011 [facility] [address] [id number] [address] [place] [address], [place] [address] Jun, [facility] [address] [id number] [address] [place] [address], [place] [address] Jun, [facility] [address] [id number] [address] [place] [address], [place] [address] Jun, [facility] [address] [id number] [address] [place] [address], [place] [address] May, [facility] [address] [id number] [address] [place] [address], [place] [address] May, [facility] [address] [id number] [address] [place] [address], [place] [address] May, [facility] [address] [id number] [address] [place] [address], [place] [address] May, [facility] [facility] [address] [id number] [address] [place] [address], [place] [id number] May, [facility] [address] [id number] [address] [place] [address], [place] [phone] May, [facility] [address] [id number] [address] [place] [address], [place] [id number] Feb, [facility] [address] [id number] [address] [place] [address], [place] [phone] December, [facility] [address] [id number] [address] [place] [address], [place] [id number] Jul, [facility] [address] [id number] [address] [place] [address], [place] [phone] Jul, [facility] [address] [id number] [address] [place] [address], [place] [address] Jul, [facility] [address] [id number] [address] [place] [address], [place] [address] Jul, [facility] [address] [id number] [address] [place] [phone] Jun, [facility] [address] [id number] [address] [place] [phone] Jul, [facility] [address] [id number] [address] [place] [phone] Jul, [facility] [address] [id number] [address] [place] [phone] Jul, [facility] [address] [id number] [address] [place] [phone] Jul, [facility] [address] [id number] [address] [place] [id number] Jul, [facility] [address] [id number] [address] [place] [phone] Jul, [facility] [address] [id number] [address] [place] [id number] Jan, [facility] [address] [id number] [address] [place] [phone] Sep, [facility] [address] [id number] [address] [place] [id number] Sep, IMMUNIZATIONS No Known Immunizations SOCIAL HISTORY [...]
--- OUTSIDE RECORDS SUMMARY | 2020-01-27 10:14 | XMS REPORT ---
Author Author Silvia MERCHANT Organization [facility] Address [address] [place] [address] Care Team Providers Care Lead Oxide Mill Tender Name Role Phone KVNG MERCHANT Unavailable PROBLEMS Type Condition ICD9-CM Code [id number] Code Onset Dates Condition S tatus SNOMED Code Problem Hypertension I10 Active 8220972 3 Problem Generalized anxiety disorder F41.1 A ctive 747814029 Problem History of colon polyps Z86.010 Active 444517133 Problem History of diverticulitis Z87.19 Acti ve 776722920029915 Problem Family history of diabetes mellitus Z83.3 Active 318031710 Problem Excessive and frequent menstruation with irregular cycle N92.1 Active 446311676 Problem Hot flashes N95.1 Active 62194238 8 Problem Gastroesophageal reflux disease with esophagitis K 21.0 Active 280825268 Problem History of ovarian cyst Z87.42 Active 72377680 Problem Diverticulitis K57.92 Active 64324 6006 Problem Dense breast tissue R92.2 Active 395094190 Problem Perimenopausal N95.1 Active 88129 8565222775 Problem Mitral valve prolapse I34.1 Active 609604916 Problem Abnormal uterine bleeding (AUB) N93.9 Active 87121955857646 Problem Tachycardia R00.0 Active 9928714 ALLERGIES No Information ENCOUNTERS Encounter Location Date Diagnosis [facility] [address] [facility] [id number] [address] [place] [address] May, [facility] [address] [id number] [address] [place] [address] May, [facility] [address] [facility] [id number] [address] [place] [address] Apr, [facility] [address] [id number] [address] [place] [address] Mar, Caries K02.9 ; Dental examin ation Z01.20 ; Periodontitis K05.30 and Oral health maintenance status requiring routine preventive dental care K08.9 [facility] [address] [id number] [address] [place] [address] Mar, Generalized anxiety disorder F41.1 [facility] [address] [facility] [id number] [address] [place] [address] Mar, Gastrointestinal hemorrhage associated with gastroduodenitis K29.91 [facility] [address] [id number] [address] [place] [address] Mar, Generalized anxiety disorder F41.1 and Bereavement Z63.4 [facility] [address] [id number] [address] [place] [address] Mar, [facility] [address] [facility] [id number] [address] [place] [address] Mar, [facility] [address] [id number] [address] [place] [address] Mar, [facility] [address] [facility] [id number] [address] [place] [address] Mar, Tachycardia R00.0 and Essent ial hypertension I10 [facility] [address] [id number] [address] [place] [address] Feb, Generalized anxiety disorder F41.1 [facility] [address] [facility] [id number] [address] [place] [address] Feb, Generalized anxiety disorder F41.1 and Bereavement Z63.4 [facility] [address] [id number] [address] [place] [address] Feb, Generalized anxiety disorder F41.1 [facility] [address] [facility] [id number] [address] [place] [address] Feb, Generalized anxiety disorder F41.1 and Bereavement Z63.4 [facility] [address] [facility] [id number] [address] [place] [address] Jan, [facility] [address] [facility] [id number] [address] [place] [phone] 20 Jan, 2019 Breast cancer screening by trenton crenshaw Z12.31 [facility] [address] [facility] [id number] [address] [place] [address] 13 Jan, 2019 Generalized anxiety disorder F41.1 and Bereavement Z63.4 [facility] [address] [facility] [id number] [address] [place] [address] Jan, [facility] [address] [facility] [id number] [address] [place] [address] December, Generalized anxiety disorder F41.1 and Bereavement Z63.4 [facility] [address] [facility] [id number] [address] [place] [address] December, Diverticulitis K57.92 ; Dysu nick R30.0 ; Other constipation K59.09 and Lower abdominal pain R10.30 [facility] [address] [facility] [id number] [address] [place] [address] Nov, Diverticulitis K57.92 [facility] [address] [facility] [id number] [address] [place] [address] Nov, Generalized anxiety disorder F41.1 and Bereavement Z63.4 [facility] [address] [facility] [id number] [address] [place] [address] Nov, Generalized anxiety disorder F41.1 and Bereavement Z63.4 [facility] [address] [facility] [id number] [address] [place] [address] Nov, Diverticulitis K57.92 [facility] [address] [facility] [id number] [address] [place] [address] Oct, Diverticulitis K57.92 [facility] [address] [facility] [id number] [address] [place] [address] Oct, Diverticulitis K57.92 [facility] [address] [facility] [id number] [address] [place] [address] Oct, Generalized anxiety disorder F41.1 [facility] [address] [facility] [id number] [address] [place] [address] Oct, Right lower quadrant abdomin al pain R10.31 and Diverticulitis K57.92 [facility] [address] [facility] [id number] [address] [place] [address] Sep, Generalized anxiety disorder F41.1 and Bereavement Z63.4 [facility] [address] [facility] [id number] [address] [place] [address] Aug, [facility] [address] [facility] [id number] [address] [place] [address] Aug, Generalized anxiety disorder F41.1 and Bereavement Z63.4 [facility] [address] [place], [place] [address] [place] [address] Aug, Caries K02.9 [facility] [address] [facility] [id number] [address] [place] [address] Jul, Generalized anxiety disorder F41.1 and Bereavement Z63.4 [facility] [address] [facility] [id number] [address] [place] [address] Jul, Other acute gastritis withou t hemorrhage K29.00 ; Generalized anxiety disorder F41.1 ; Tachycardia R00.0 and Essential hypertension I10 [facility] [address] [facility] [id number] [address] [place] [address] Jul, Generalized anxiety disorder F41.1 and Bereavement Z63.4 [facility] [address] [facility] [id number] [address] [place] [address] Jun, Generalized anxiety disorder F41.1 and Bereavement Z63.4 [facility] [address] [facility] [id number] [address] [place] [address] Jun, Generalized anxiety disorder F41.1 and Bereavement Z63.4 [facility] [address] [id number] [address] [place] [address] Jun, Dental examination Z01.20 [facility] [address] [facility] [id number] [address] [place] [address] May, Generalized anxiety disorder F41.1 and Bereavement Z63.4 [facility] [address] [facility] [id number] [address] [place] [address] 08 May, 2018 Encounter for immunization Z 23 [facility] [address] [facility] [id number] [address] [place] [address] 08 May, 2018 Generalized anxiety disorder F41.1 and Bereavement Z63.4 [facility] [address] [facility] [id number] [address] [place] [address] May, [facility] [address] [facility] [id number] [address] [place] [address] 24 Apr, 2018 Generalized anxiety disorder F41.1 and Bereavement Z63.4 [facility] [address] [facility] [id number] [address] [place] [address] 17 Apr, 2018 [facility] [address] [facility] [id number] [address] [place] [address] 13 Apr, 2018 Diverticulitis K57.92 [facility] [address] [facility] [id number] [address] [place] [address] 10 Apr, 2018 Generalized anxiety disorder F41.1 and Bereavement Z63.4 [facility] [address] [facility] [id number] [address] [place] [address] Mar, [facility] [address] [facility] [id number] [address] [place] [address] Mar, Diverticulitis K57.92 [facility] [address] [facility] [id number] [address] [place] [address] Mar, Generalized anxiety disorder F41.1 and Bereavement Z63.4 [facility] [address] [id number] [address] [place] [address] Mar, Hypertension I10 [facility] [address] [id number] [address] [place] [address] Mar, Generalized anxiety disorder F41.1 and Bereavement Z63.4 [facility] [address] [id number] [address] [place] [address] Feb, Generalized anxiety disorder F41.1 and Bereavement Z63.4 [facility] [address] [id number] [address] [place] [address] Feb, [facility] [address] [id number] [address] [place] [address] Feb, Generalized anxiety disorder F41.1 and Bereavement Z63.4 [facility] [address] [id number] [address] [place] [address] Feb, Generalized anxiety disorder F41.1 and Bereavement Z63.4 [facility] [address] [id number] [address] [place] [address] Jan, Hypertension I10 and Acute n on-recurrent maxillary sinusitis J01.00 [facility] [address] [id number] [address] [place] [address] December, [facility] [address] [id number] [address] [place] [address] December, Hypertension I10 [facility] [address] [id number] [address] [place] [address] December, Generalized anxiety disorder F41.1 [facility] [address] [id number] [address] [place] [address] Oct, Encounter for dental examina tion Z01.20 [facility] [address] [id number] [place] [address] Oct, Encounter for dental examina tion Z01.20 [facility] [address] [id number] [place] [address] 02 Oct, 2017 Dental examination Z01.20 [facility] [address] [id number] [address] [place] [address] Oct, Generalized anxiety disorder F41.1 [facility] [address] [id number] [place] [address] 30 Aug, 2017 Dental examination Z01.20 [facility] [address] [id number] [address] [place] [address] Aug, Generalized anxiety disorder F41.1 [facility] [address] [id number] [address] [place] [address] Aug, [facility] [address] [id number] [place] [address] 09 Aug, 2017 Encounter for dental examina tion Z01.20 [facility] [address] [id number] [address] [place] [address] Aug, Subacute maxillary sinusitis J01.00 [facility] [address] [id number] [place] [address] Jul, Dental examination Z01.20 [facility] [address] [id number] [address] [place] [address] Jul, Generalized anxiety disorder F41.1 [facility] [address] [id number] [address] [place] [address] Jul, Diverticulitis K57.92 [facility] [address] [id number] [address] [place] [address] 28 Jun, 2017 Encounter for immunization Z 23 [facility] [address] [id number] [place] [address] 22 Jun, 2017 Dental examination Z01.20 [facility] [address] [id number] [address] [place] [address] 14 Jun, 2017 Generalized anxiety disorder F41.1 [facility] [address] [id number] [address] [place] [address] Jun, Dental examination Z01.20 [facility] [address] [id number] [address] [place] [address] May, [facility] [address] [id number] [address] [place] [id number] May, Dental examination Z01.20 [facility] [address] [id number] [address] [place] [id number] May, Dental examination Z01.20 [facility] [address] [id number] [address] [place] [address] May, Dental examination Z01.20 [facility] [address] [id number] [address] [place] [address] May, [facility] [address] [id number] [address] [place] [address] May, Generalized anxiety disorder F41.1 [facility] [address] [id number] [address] [place] [address] May, Localized edema R60.0 ; Yeas t vaginitis B37.3 and Gastroesophageal reflux disease with esophagitis K21.0 [facility] [address] [id number] [address] [place] [address] [id number] Apr, Dental examination Z01.20 [facility] [address] [id number] [address] [place] [address] Apr, Dental examination Z01.20 [facility] [address] [id number] [address] [place] [address] 05 Apr, 2017 Dental examination Z01.20 [facility] [address] [id number] [address] [place] [address] Mar, Dyspepsia R10.13 [facility] [address] [id number] [address] [place] [address] Mar, Generalized anxiety disorder F41.1 [facility] [address] [id number] [address] [place] [address] Mar, Encounter for dental examina tion Z01.20 [facility] [address] [id number] [address] [place] [address] [id number] Mar, [facility] [address] [id number] [address] [place] [address] [id number] Mar, Dental examination Z01.20 [facility] [address] [id number] [address] [place] [address] Feb, Hypertension I10 and Tachyca rdia R00.0 [facility] [address] [id number] [place] [address] Feb, [facility] [address] [id number] [address] [place] [address] Feb, Generalized anxiety disorder F41.1 [facility] [address] [id number] [address] [place] [address] [id number] Feb, Dental examination Z01.20 [facility] [address] [id number] [address] [place] [address] Jan, Generalized anxiety disorder F41.1 [facility] [address] [id number] [address] [place] [address] December, Generalized anxiety disorder F41.1 [facility] [address] [id number] [address] [place] [address] [id number] December, Encounter for dental examina tion Z01.20 [facility] [address] [id number] [address] [place] [address] Nov, [facility] [address] [id number] [address] [place] [address] Nov, [facility] [address] [id number] [address] [place] [address] Nov, Generalized anxiety disorder F41.1 [facility] [address] [facility] [id number] [address] [place] [address] Oct, [facility] [address] [facility] [id number] [address] [place] [address] [id number] Oct, Dental examination Z01.20 [facility] [address] [facility] [id number] [address] [place] [address] Oct, Vaginal dryness N89.8 [facility] [address] [facility] [id number] [address] [place] [address] Oct, Pseudoseizures F44.5 [facility] [address] [facility] [id number] [address] [place] [address] Oct, Generalized anxiety disorder F41.1 [facility] [address] [place] [id number] [address] [place] [address] 28 Sep, 2016 Abnormal uterine bleeding (A UB) N93.9 ; Vaginal dryness N89.8 and Screening breast examination Z12.39 [facility] [address] [facility] [id number] [address] [place] [address] Sep, Dental examination Z01.20 [facility] [address] [place] [id number] [address] [place] [address] Sep, Generalized anxiety disorder F41.1 [facility] [address] [place] [id number] [address] [place] [address] 06 Sep, 2016 Unspecified ovarian cyst, ri ght side N83.201 ; Unspecified ovarian cyst, left side N83.202 ; Yeast infection of the vagina B37.3 ; Mitral valve prolapse I34.1 and Hypertension I10 [facility] [address] [facility] [id number] [address] [place] [address] Aug, Generalized anxiety disorder F41.1 [facility] [address] [facility] [id number] [address] [place] [address] Jul, [facility] [id number] [place] [address] Jul, Generalized anxiety disorder F41.1 [facility] [address] [facility] [id number] [address] [place] [address] Jun, Generalized anxiety disorder F41.1 [facility] [address] [facility] [id number] [address] [place] [address] 28 May, 2016 Encounter for immunization Z 23 [facility] [address] [facility] [id number] [address] [place] [address] 17 May, 2016 Generalized anxiety disorder F41.1 and Depressive disorder, not elsewhere classified F32.9 [facility] [address] [facility] [id number] [place] [address] 28 Apr, 2016 Hypertension I10 [facility] [address] [facility] [id number] [place] [address] 22 Apr, 2016 Cervicalgia M54.2 [facility] [address] [facility] [id number] [address] [place] [address] 12 Apr, 2016 Cervicalgia M54.2 [facility] [address] [facility] [id number] [place] [address] 09 Mar, 2016 Generalized anxiety disorder F41.1 and Depressive disorder, not elsewhere classified F32.9 [facility] [id number] [place] [id number] Feb, Visit for dental examination Z01.20 [facility] [address] [place] [id number] [address] [place] [address] Feb, Pseudoseizures F44.5 ; Migra ine without status migrainosus, not intractable, unspecified migraine type G43.909 and Essential hypertension I10 [facility] [address] [place] [id number] [place] [address] [id number] Feb, Dental examination Z01.20 [facility] [address] [place] [id number] [address] [place] [address] 05 Feb, 2016 Generalized anxiety disorder F41.1 and Depressive disorder, not elsewhere classified F32.9 [facility] [address] [facility] [id number] [address] [place] [address] Jan, Tachycardia R00.0 [facility] [address] [facility] [id number] [address] [place] [address] December, Eustachian tube dysfunction, bilateral H69.83 [facility] [address] [facility] [id number] [address] [place] [address] December, Generalized anxiety disorder F41.1 and Depressive disorder, not elsewhere classified F32.9 [facility] [address] [facility] [id number] [address] [place] [address] Nov, [facility] [address] [facility] [id number] [address] [place] [address] Nov, [place] [address] [facility] [id number] [address] [place] [address] Nov, Hypertension I10 ; Onychomyc osis B35.1 [...] and Complex cyst of left ovary N83.29 [facility] [address] [facility] [id number] [address] [place] [address] 14 Nov, 2015 Sinusitis J32.9 [facility] [address] [facility] [id number] [address] [place] [address] Oct, Complex cyst of left ovary N 83.29 [facility] [address] [facility] [id number] [address] [place] [address] Oct, Onychomycosis B35.1 [facility] [address] [id number] [address] [place] [address] [id number] Oct, 2016 Dental examination Z01.20 [place] [address] [address] [facility] [id number] [address] [place] [phone] 09 Oct, 2016 Well woman exam Z01.419 [...] History of colon polyps Z86.010 [place] [address] [address] [facility] [id number] [address] [place] [id number] 03 Oct, 2015 Generalized anxiety disorder F41.1 and Depressive disorder, not elsewhere classified F32.9 [place] [address] [address] [place] [id number] [address] [place] [phone] Sep, Hypertension I10 and Onychom ycosis B35.1 [place] [address] [address] [facility] [id number] [address] [place] [phone] 16 Sep, 2015 Skin tags, multiple acquired L91.8 [place] [address] [address] [facility] [id number] [address] [place] [id number] Aug, [place] [address] [address] [facility] [id number] [address] [place] [phone] Aug, [place] [address] [address] [facility] [id number] [address] [place] [id number] Aug, [place] [address] [address] [facility] [id number] [address] [place] [id number] Aug, Generalized anxiety disorder F41.1 and Depressive disorder, not elsewhere classified F32.9 [place] [address] [address] [facility] [id number] [address] [place] [id number] Jul, Skin lesion L98.9 [place] [address] [id number] [address] [place] [phone] Jun, Generalized anxiety disorder F41.1 and Depressive disorder, not elsewhere classified F32.9 [facility] [address] [id number] [address] [place] [phone] Jun, [facility] [address] [id number] [address] [place] [phone] Jun, Generalized anxiety disorder F41.1 [facility] [address] [id number] [address] [place] [phone] May, Encounter for immunization Z 23 and Right shoulder pain M25.511 [facility] [facility] [address] [id number] [address] [place] [address] Apr, [facility] [address] [id number] [address] [place] [address] 14 Apr, 2015 Generalized anxiety disorder 300.02 and Depressive disorder, not elsewhere classified 311 [facility] [address] [id number] [address] [place] [id number] Mar, Dental examination V72.2 [facility] [address] [id number] [address] [place] [address] Mar, Generalized anxiety disorder 300.02 and Depressive disorder, not elsewhere classified 311 [facility] [address] [id number] [address] [place] [address] Mar, Depression, major, recurrent , 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.35 and 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 [facility] [address] [id number] [address] [place] [address] Feb, Generalized anxiety disorder 300.02 and Depressive disorder, not elsewhere classified 311 [facility] [address] [id number] [address] [place] [id number] Feb, Dental examination V72.2 [facility] [address] [id number] [address] [place] [address] Jan, Generalized anxiety disorder 300.02 and Depressive disorder, not elsewhere classified 311 [facility] [address] [id number] [address] [place] [address] Jan, [facility] [address] [facility] [id number] [address] [place] [address] December, Generalized anxiety disorder 300.02 and Depressive disorder, not elsewhere classified 311 [facility] [address] [id number] [address] [place] [address] December, Major depressive disorder, r ecurrent, unspecified 296.30 and Panic disorder with agoraphobia 300.21 [facility] [address] [id number] [address] [place] [address] Nov, [facility] [address] [facility] [id number] [address] [place] [id number] Nov, [facility] [address] [facility] [id number] [address] [place] [address] Oct, [facility] [address] [id number] [address] [place] [address] Oct, [facility] [address] [facility] [id number] [address] [place] [phone] Oct, [facility] [address] [facility] [id number] [address] [place] [phone] Oct, [facility] [address] [facility] [id number] [address] [place] [address] Sep, [facility] [address] [id number] [address] [place] [address] Sep, [facility] [address] [facility] [id number] [address] [place] [phone] Sep, [facility] [address] [facility] [id number] [address] [place] [address] Sep, [facility] [address] [facility] [id number] [address] [place] [address] Sep, [facility] [address] [id number] [address] [place] [address], [place] [address] Sep, 2014 [facility] [address] [id number] [address] [place] [address], [place] [address] Sep, 2014 [facility] [address] [id number] [address] [place] [address], [place] [address] Sep, 2014 [facility] [address] [id number] [address] [place] [address], [place] [address] Sep, 2014 [facility] [address] [id number] [address] [place] [address], [place] [address] Sep, [facility] [address] [id number] [address] [place] [address], [place] [address] Aug, [facility] [address] [id number] [address] [place] [address], [place] [address] Aug, [facility] [address] [id number] [address] [place] [address], [place] [address] Jul, [facility] [address] [id number] [address] [place] [address], [place] [address] Jul, [facility] [address] [id number] [address] [place] [address], [place] [address] 18 Jul, 2014 [facility] [address] [id number] [address] [place] [address], [place] [address] 18 Jul, 2014 [facility] [address] [id number] [address] [place] [address], [place] [address] Jul, [facility] [address] [id number] [address] [place] [address], [place] [address] Jul, [facility] [address] [id number] [address] [place] [address], [place] [address] 05 Jul, 2014 [facility] [address] [id number] [address] [place] [address], [place] [address] 05 Jul, 2014 [facility] [address] [id number] [address] [place] [address], [place] [address] Jul, [facility] [address] [id number] [address] [place] [address], [place] [address] Jul, [facility] [address] [id number] [address] [place] [address], [place] [address] Jul, [facility] [address] [id number] [address] [place] [address], [place] [address] Jul, [facility] [address] [id number] [address] [place] [address], [place] [address] Jun, [facility] [address] [id number] [address] [place] [address], [place] [address] Jun, [facility] [address] [id number] [address] [place] [address], [place] [address] May, [facility] [address] [id number] [address] [place] [address], [place] [address] May, [facility] [address] [id number] [address] [place] [address], [place] [address] May, [facility] [address] [id number] [address] [place] [address], [place] [address] May, [facility] [address] [id number] [address] [place] [address], [place] [address] May, [facility] [address] [id number] [address] [place] [address], [place] [address] May, [facility] [address] [id number] [address] [place] [address] May, [facility] [address] [id number] [address] [place] [address], [place] [address] May, [facility] [address] [id number] [address] [place] [address], [place] [address] May, [facility] [address] [id number] [address] [place] [address], [place] [address] May, [facility] [address] [id number] [address] [place] [address], [place] [address] May, [facility] [address] [id number] [address] [place] [address], [place] [address] May, [facility] [address] [id number] [address] [place] [address], [place] [address] Apr, [facility] [address] [id number] [address] [place] [address], [place] [address] Apr, [facility] [address] [id number] [address] [place] [address], [place] [address] Apr, [facility] [address] [id number] [address] [place] [address], [place] [address] Apr, [facility] [address] [id number] [address] [place] [address], [place] [address] Apr, [facility] [address] [id number] [address] [place] [address], [place] [address] Apr, [facility] [address] [id number] [address] [place] [address], [place] [address] Feb, [facility] [address] [id number] [address] [place] [address], [place] [address] Feb, [facility] [address] [id number] [address] [place] [address], [place] [address] Feb, [facility] [address] [id number] [address] [place] [address], [place] [address] Feb, [facility] [address] [id number] [address] [place] [address], [place] [address] Feb, [facility] [address] [id number] [address] [place] [address], [place] [address] Feb, [facility] [address] [id number] [address] [place] [address], [place] [address] Jan, [facility] [address] [id number] [address] [place] [address], [place] [address] Jan, [facility] [address] [id number] [facility] [place] [address] Jan, [facility] [address] [id number] [address] [place] [address], [place] [address] Jan, [facility] [address] [id number] [address] [place] [address], [place] [address] Jan, [facility] [address] [id number] [address] [place] [address], [place] [address] Jan, [facility] [address] [id number] [address] [place] [address], [place] [address] Jan, [facility] [address] [id number] [address] [place] [address], [place] [address] Jan, [facility] [address] [id number] [address] [place] [address], [place] [address] December, [facility] [address] [id number] [address] [place] [address], [place] [address] December, [facility] [address] [id number] [address] [place] [address], [place] [address] December, [facility] [address] [id number] [address] [place] [address], [place] [address] December, [facility] [address] [id number] [address] [place] [address], [place] [address] Nov, [facility] [address] [id number] [address] [place] [address], [place] [address] Nov, [facility] [address] [id number] [address] [place] [address], [place] [address] Nov, [facility] [address] [id number] [address] [place] [address], [place] [address] Nov, [facility] [address] [id number] [address] [place] [address], [place] [address] Nov, [facility] [address] [id number] [address] [place] [address], [place] [address] Nov, [facility] [address] [id number] [address] [place] [address], [place] [address] Nov, [facility] [address] [id number] [address] [place] [address], [place] [address] Nov, [facility] [address] [id number] [address] [place] [address], [place] [address] Oct, [facility] [address] [id number] [address] [place] [address], [place] [address] Oct, [facility] [address] [id number] [address] [place] [address], [place] [address] Sep, [facility] [address] [id number] [address] [place] [address], [place] [address] Sep, [facility] [address] [id number] [address] [place] [address], [place] [id number] Sep, [facility] [address] [id number] [address] [place] [address], [place] [address] Sep, [facility] [address] [id number] [address] [place] [address], [place] [address] Sep, [facility] [address] [id number] [address] [place] [address], [place] [address] Sep, [facility] [address] [id number] [address] [place] [address], [place] [address] Aug, [facility] [address] [id number] [address] [place] [address], [place] [address] Aug, [facility] [address] [id number] [address] [place] [address], [place] [address] Aug, [facility] [address] [id number] [address] [place] [address], [place] [address] Aug, [facility] [address] [id number] [address] [place] [address], [place] [address] Jul, [facility] [address] [id number] [address] [place] [address], [place] [address] Jul, [facility] [address] [id number] [address] [place] [address], [place] [address] Jul, [facility] [address] [id number] [address] [place] [address], [place] [address] Jul, [facility] [address] [id number] [address] [place] [address], [place] [address] Jun, [facility] [address] [id number] [address] [place] [address], [place] [address] Jun, [facility] [address] [id number] [address] [place] [address], [place] [address] May, [facility] [address] [id number] [address] [place] [address], [place] [address] May, [facility] [address] [id number] [address] [place] [address], [place] [address] May, [facility] [address] [id number] [address] [place] [address], [place] [address] May, [facility] [address] [id number] [address] [place] [address], [place] [address] May, [facility] [address] [id number] [address] [place] [address], [place] [address] 17 Apr, 2013 [facility] [address] [id number] [address] [place] [address] 10 Apr, 2013 [facility] [address] [id number] [address] [place] [address], [place] [address] 29 Mar, 2013 [facility] [address] [id number] [address] [place] [address], [place] [address] Mar, [facility] [address] [id number] [address] [place] [address], [place] [address] 15 Mar, 2013 [facility] [address] [id number] [address] [place] [address], [place] [address] Mar, [facility] [address] [id number] [address] [place] [address], [place] [address] Feb, [facility] [address] [id number] [address] [place] [address], [place] [address] Feb, [facility] [address] [id number] [address] [place] [address], [place] [address] Feb, [facility] [address] [id number] [address] [place] [address], [place] [address] Feb, [facility] [address] [id number] [address] [place] [address], [place] [address] Feb, [facility] [address] [id number] [address] [place] [address], [place] [address] Jan, [facility] [address] [id number] [address] [place] [address], [place] [address] Jan, [facility] [address] [id number] [address] [place] [address], [place] [address] Jan, [facility] [address] [id number] [address] [place] [address], [place] [address] Jan, [facility] [address] [id number] [address] [place] [address], [place] [address] Jan, [facility] [address] [id number] [address] [place] [address], [place] [address] December, [facility] [address] [id number] [address] [place] [address], [place] [address] December, [facility] [address] [id number] [address] [place] [address], [place] [address] Nov, [facility] [address] [id number] [address] [place] [address], [place] [address] Nov, [facility] [address] [id number] [address] [place] [address], [place] [address] Oct, [facility] [address] [id number] [address] [place] [address], [place] [address] 13 Oct, 2012 [facility] [address] [id number] [address] [place] [address], [place] [address] 05 Oct, 2012 [facility] [address] [id number] [address] [place] [address], [place] [address] 14 Sep, 2012 [facility] [address] [id number] [address] [place] [address], [place] [address] 24 Aug, 2012 [facility] [address] [id number] [address] [place] [address], [place] [address] 16 Aug, 2012 [facility] [address] [id number] [address] [place] [address], [place] [address] Aug, [facility] [address] [id number] [address] [place] [address], [place] [address] Aug, [facility] [address] [id number] [address] [place] [address], [place] [address] Jul, [facility] [address] [id number] [address] [place] [address], [place] [address] Jul, [facility] [address] [id number] [address] [place] [address], [place] [address] Jul, [facility] [address] [id number] [address] [place] [address], [place] [address] Jul, [facility] [address] [id number] [address] [place] [address], [place] [address] Jul, [facility] [address] [id number] [address] [place] [address], [place] [address] Jul, [facility] [address] [id number] [address] [place] [address], [place] [address] Jul, [facility] [address] [id number] [address] [place] [address], [place] [address] Jul, [facility] [address] [id number] [address] [place] [address], [place] [address] Jun, [facility] [address] [id number] [address] [place] [address], [place] [address] Jun, [facility] [address] [id number] [address] [place] [address], [place] [address] Jun, [facility] [address] [id number] [address] [place] [address], [place] [address] Jun, [facility] [address] [id number] [address] [place] [address] Jun, [facility] [address] [id number] [address] [place] [address], [place] [address] Jun, [facility] [address] [id number] [address] [place] [address], [place] [address] May, [facility] [address] [id number] [address] [place] [address], [place] [address] May, [facility] [address] [id number] [address] [place] [address], [place] [address] May, [facility] [address] [id number] [address] [place] [address], [place] [address] May, [facility] [address] [id number] [address] [place] [address], [place] [address] Apr, [facility] [address] [id number] [address] [place] [address], [place] [address] Apr, [facility] [address] [id number] [address] [place] [address] Mar, [facility] [address] [id number] [address] [place] [address], [place] [address] Jan, [facility] [address] [id number] [address] [place] [address], [place] [address] Jan, [facility] [address] [id number] [address] [place] [address], [place] [address] Jan, [facility] [address] [id number] [address] [place] [address], [place] [address] 15 Jan, 2012 [facility] [address] [id number] [address] [place] [address], [place] [address] 14 Jan, 2012 [facility] [address] [id number] [address] [place] [address], [place] [address] 14 Jan, 2012 [facility] [address] [id number] [address] [place] [address], [place] [address] 07 Jan, 2012 [facility] [address] [id number] [address] [place] [address], [place] [address] December, [facility] [address] [id number] [address] [place] [address], [place] [address] December, [facility] [address] [id number] [address] [place] [address], [place] [address] December, [facility] [address] [id number] [address] [place] [address], [place] [address] December, [facility] [address] [id number] [address] [place] [address], [place] [address] Nov, [facility] [address] [id number] [address] [place] [address], [place] [address] 05 Nov, 2011 [facility] [address] [id number] [address] [place] [address], [place] [address] 29 Oct, 2011 [facility] [address] [id number] [address] [place] [address], [place] [address] 28 Oct, 2011 [facility] [address] [id number] [address] [place] [address], [place] [address] 15 Oct, 2011 [facility] [address] [id number] [address] [place] [address], [place] [address] Sep, [facility] [address] [id number] [address] [place] [address], [place] [address] Sep, [facility] [address] [id number] [address] [place] [address], [place] [address] Sep, [facility] [address] [id number] [address] [place] [address], [place] [address] Aug, [facility] [address] [id number] [address] [place] [address], [place] [address] Aug, [facility] [address] [id number] [address] [place] [address], [place] [address] Aug, [facility] [address] [id number] [address] [place] [address], [place] [address] Aug, [facility] [address] [id number] [address] [place] [address], [place] [address] Aug, [facility] [address] [id number] [address] [place] [address], [place] [address] Aug, [facility] [address] [id number] [address] [place] [address], [place] [address] Aug, [facility] [address] [id number] [address] [place] [address], [place] [address] Jul, [facility] [address] [id number] [address] [place] [address], [place] [address] Jul, [facility] [address] [id number] [address] [place] [address], [place] [address] Jun, [facility] [address] [id number] [address] [place] [address], [place] [address] Jun, [facility] [address] [id number] [address] [place] [address], [place] [address] 17 Jun, 2011 [facility] [address] [id number] [address] [place] [address], [place] [address] 15 Jun, 2011 [facility] [address] [id number] [address] [place] [address], [place] [address] 14 Jun, 2011 [facility] [address] [id number] [address] [place] [address], [place] [address] 14 Jun, 2011 [facility] [address] [id number] [address] [place] [address], [place] [address] 07 Jun, 2011 [facility] [address] [id number] [address] [place] [address], [place] [address] Jun, [facility] [address] [id number] [address] [place] [address], [place] [address] Jun, [facility] [address] [id number] [address] [place] [address], [place] [address] Jun, [facility] [address] [id number] [address] [place] [address], [place] [address] May, [facility] [address] [id number] [address] [place] [address], [place] [address] May, [facility] [address] [id number] [address] [place] [address], [place] [address] May, [facility] [address] [id number] [address] [place] [address], [place] [address] May, [facility] [address] [id number] [address] [place] [address], [place] [address] May, [facility] [address] [id number] [address] [place] [address], [place] [address] May, [facility] [address] [id number] [address] [place] [address], [place] [address] Feb, [facility] [address] [id number] [address] [place] [address], [place] [address] December, [facility] [address] [id number] [address] [place] [address], [place] [address] Jul, [facility] [address] [id number] [address] [place] [address], [place] [address] Jul, [facility] [address] [id number] [address] [place] [address], [place] [address] Jul, [facility] [address] [id number] [address] [place] [address], [place] [address] Jul, [facility] [address] [id number] [address] [place] [id number] Jun, [facility] [address] [id number] [address] [place] [id number] 31 Jul, 2009 [facility] [address] [id number] [address] [place] [id number] Jul, [facility] [address] [id number] [address] [place] [id number] Jul, [facility] [address] [id number] [address] [place] [id number] Jul, [facility] [address] [id number] [address] [place] [id number] Jul, [facility] [address] [id number] [address] [place] [id number] Jul, [facility] [address] [id number] [address] [place] [id number] Jan, [facility] [address] [id number] [address] [place] [id number] 16 Sep, 2008 [facility] [address] [id number] [address] [place] [id number] Sep, IMMUNIZATIONS No Known Immunizations SOCIAL HISTORY Never Assessed REASON FOR VISIT PLAN OF CARE VITAL SIGNS MEDICATIONS Unknown Medications RESULTS No Results PROCEDURES Procedure Date Ordered Result Body Site PSYTX PT&/FAMILY 45 MINUTES Jun 14, 2014 INSTRUCTIONS MEDICATIONS ADMINISTERED No Known Medications [...]
--- OUTSIDE RECORDS SUMMARY | 2020-01-27 10:15 | XMS REPORT ---
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 Name Role Phone KVNG MERCHANT Unavailable PROBLEMS Type Condition ICD9-CM Code YMB02-IM Code Onset Dates Condition S tatus SNOMED Code Problem Hypertension I10 Active 0315078 3 Problem Generalized anxiety disorder F41.1 A ctive 711329879 Problem History of colon polyps Z86.010 Active 197695870 Problem History of diverticulitis Z87.19 Acti ve 514401448753056 Problem Family history of diabetes mellitus Z83.3 Active 589266425 Problem Excessive and frequent menstruation with irregular cycle N92.1 Active 105060481 Problem Hot flashes N95.1 Active 59888488 8 Problem Gastroesophageal reflux disease with esophagitis K 21.0 Active 865608705 Problem History of ovarian cyst Z87.42 Active 72541574 Problem Diverticulitis K57.92 Active 97773 6006 Problem Dense breast tissue R92.2 Active 131219771 Problem Perimenopausal N95.1 Active 51151 4259612053 Problem Mitral valve prolapse I34.1 Active 679319667 Problem Abnormal uterine bleeding (AUB) N93.9 Active 54605428322584 Problem Tachycardia R00.0 Active 5449605 ALLERGIES No Information ENCOUNTERS Encounter Location Date Diagnosis [facility] [address] [facility] [id number] [address] [place] [phone] Apr, [facility] [address] [facility] [id number] [address] [place] [phone] Mar, [facility] [address] [facility] [id number] [address] [place] [address] Mar, [facility] [address] [facility] [id number] [address] [place] [phone] Mar, [facility] [address] [id number] [address] [place] [address] Mar, [facility] [address] [id number] [address] [place] [phone] Mar, [facility] [address] [facility] [id number] [address] [place] [id number] Mar, Tachycardia R00.0 and Essent ial hypertension I10 [facility] [address] [id number] [address] [place] [address] Feb, Generalized anxiety disorder F41.1 [facility] [address] [id number] [address] [place] [phone] Feb, Generalized anxiety disorder F41.1 and Bereavement Z63.4 [facility] [address] [facility] [id number] [address] [place] [address] Feb, Generalized anxiety disorder F41.1 [facility] [address] [facility] [id number] [address] [place] [phone] Feb, Generalized anxiety disorder F41.1 and Bereavement Z63.4 [facility] [address] [facility] [id number] [address] [place] [phone] Jan, [facility] [address] [facility] [id number] [address] [place] [address] Jan, Breast cancer screening by trenton crenshaw Z12.31 [facility] [address] [facility] [id number] [address] [place] [phone] Jan, Generalized anxiety disorder F41.1 and Bereavement Z63.4 [facility] [address] [facility] [id number] [address] [place] [phone] Jan, [facility] [address] [facility] [id number] [address] [place] [address] December, Generalized anxiety disorder F41.1 and Bereavement Z63.4 [facility] [address] [facility] [id number] [address] [place] [address] December, Diverticulitis K57.92 ; Dysu nikc R30.0 ; Other constipation K59.09 and Lower abdominal pain R10.30 [facility] [address] [id number] [address] [place] [address] Nov, Diverticulitis K57.92 [facility] [address] [id number] [address] [place] [address] Nov, Generalized anxiety disorder F41.1 and Bereavement Z63.4 [facility] [address] [id number] [address] [place] [address] Nov, Generalized anxiety disorder F41.1 and Bereavement Z63.4 [facility] [address] [facility] [id number] [address] [place] [address] Nov, Diverticulitis K57.92 [facility] [address] [facility] [id number] [address] [place] [address] Oct, Diverticulitis K57.92 [facility] [address] [facility] [id number] [address] [place] [address] Oct, Diverticulitis K57.92 [place] [address] [facility] [id number] [address] [place] [address] Oct, Generalized anxiety disorder F41.1 [facility] [address] [facility] [id number] [address] [place] [id number] Oct, Right lower quadrant abdomin al pain R10.31 and Diverticulitis K57.92 [facility] [address] [id number] [address] [place] [address] Sep, Generalized anxiety disorder F41.1 and Bereavement Z63.4 [facility] [address] [facility] [id number] [address] [place] [address] Aug, [facility] [address] [facility] [id number] [address] [place] [address] Aug, Generalized anxiety disorder F41.1 and Bereavement Z63.4 [facility] [address] [id number] [place] [address] 11 Aug, 2018 Caries K02.9 [facility] [address] [facility] [id number] [address] [place] [phone] 17 Jul, 2018 Generalized anxiety disorder F41.1 and Bereavement Z63.4 [facility] [address] [facility] [id number] [address] [place] [address] 05 Jul, 2018 Other acute gastritis withou t hemorrhage K29.00 ; Generalized anxiety disorder F41.1 ; Tachycardia R00.0 and Essential hypertension I10 [facility] [address] [facility] [id number] [address] [place] [address] 05 Jul, 2018 Generalized anxiety disorder F41.1 and Bereavement Z63.4 [facility] [address] [facility] [id number] [address] [place] [address] Jun, Generalized anxiety disorder F41.1 and Bereavement Z63.4 [facility] [address] [facility] [id number] [address] [place] [address] 06 Jun, 2018 Generalized anxiety disorder F41.1 and Bereavement Z63.4 [facility] [address] [id number] [place] [address] 02 Jun, 2018 Dental examination Z01.20 [facility] [address] [facility] [id number] [address] [place] [phone] May, Generalized anxiety disorder F41.1 and Bereavement Z63.4 [facility] [address] [facility] [id number] [address] [place] [phone] May, Encounter for immunization Z 23 [facility] [address] [facility] [id number] [address] [place] [address] May, Generalized anxiety disorder F41.1 and Bereavement Z63.4 [facility] [address] [facility] [id number] [address] [place] [address] May, [facility] [address] [id number] [address] [place] [id number] 24 Apr, 2018 Generalized anxiety disorder F41.1 and Bereavement Z63.4 [facility] [address] [id number] [address] [place] [address] Apr, [facility] [address] [id number] [address] [place] [address] Apr, Diverticulitis K57.92 [facility] [address] [id number] [address] [place] [address] Apr, Generalized anxiety disorder F41.1 and Bereavement Z63.4 [facility] [address] [id number] [address] [place] [address] Mar, [facility] [address] [id number] [address] [place] [address] Mar, Diverticulitis K57.92 [facility] [address] [id number] [address] [place] [address] Mar, Generalized anxiety disorder F41.1 and Bereavement Z63.4 [facility] [address] [facility] [id number] [address] [place] [address] Mar, Hypertension I10 [facility] [address] [id number] [address] [place] [phone] Mar, Generalized anxiety disorder F41.1 and Bereavement Z63.4 [facility] [address] [id number] [address] [place] [address] Feb, Generalized anxiety disorder F41.1 and Bereavement Z63.4 [facility] [address] [id number] [address] [place] [phone] Feb, [facility] [address] [facility] [id number] [address] [place] [address] Feb, Generalized anxiety disorder F41.1 and Bereavement Z63.4 [facility] [address] [id number] [address] [place] [address] Feb, Generalized anxiety disorder F41.1 and Bereavement Z63.4 [facility] [address] [id number] [address] [place] [address] Jan, Hypertension I10 and Acute n on-recurrent maxillary sinusitis J01.00 [facility] [address] [id number] [address] [place] [address] December, [facility] [address] [id number] [address] [place] [address] December, Hypertension I10 [facility] [address] [facility] [id number] [address] [place] [address] December, Generalized anxiety disorder F41.1 [facility] [address] [id number] [address] [place] [address] Oct, Encounter for dental examina tion Z01.20 [facility] [address] [id number] [address] [place] [address] Oct, Encounter for dental examina tion Z01.20 [facility] [address] [id number] [address] [place] [address] Oct, Dental examination Z01.20 [facility] [address] [id number] [address] [place] [address] Oct, Generalized anxiety disorder F41.1 [facility] [address] [id number] [address] [place] [address] Aug, Dental examination Z01.20 [facility] [address] [id number] [address] [place] [address] Aug, Generalized anxiety disorder F41.1 [facility] [address] [id number] [address] [place] [phone] Aug, [facility] [address] [id number] [address] [place] [address] 09 Aug, 2017 Encounter for dental examina tion Z01.20 [facility] [address] [id number] [address] [place] [address] 08 Aug, 2017 Subacute maxillary sinusitis J01.00 [facility] [address] [id number] [address] [place] [address] 22 Jul, 2017 Dental examination Z01.20 [facility] [address] [id number] [address] [place] [address] 19 Jul, 2017 Generalized anxiety disorder F41.1 [facility] [address] [id number] [address] [place] [address] 11 Jul, 2017 Diverticulitis K57.92 [facility] [address] [id number] [address] [place] [phone] 28 Jun, 2017 Encounter for immunization Z 23 [facility] [address] [id number] [address] [place] [phone] 22 Jun, 2017 Dental examination Z01.20 [facility] [address] [id number] [address] [place] [id number] 14 Jun, 2017 Generalized anxiety disorder F41.1 [facility] [address] [id number] [address] [place] [address] 07 Jun, 2017 Dental examination Z01.20 [facility] [address] [id number] [address] [place] [address] May, [facility] [address] [id number] [address] [place] [id number] May, Dental examination Z01.20 [facility] [address] [id number] [address] [place] [address] [id number] May, Dental examination Z01.20 [facility] [address] [id number] [address] [place] [address] 13 May, 2017 Dental examination Z01.20 [facility] [address] [id number] [address] [place] [phone] May, [facility] [address] [id number] [address] [place] [phone] May, Generalized anxiety disorder F41.1 [facility] [address] [id number] [address] [place] [phone] May, Localized edema R60.0 ; Yeas t vaginitis B37.3 and Gastroesophageal reflux disease with esophagitis K21.0 [facility] [address] [id number] [address] [place] [address] [id number] Apr, Dental examination Z01.20 [facility] [address] [id number] [address] [place] [phone] Apr, Dental examination Z01.20 [facility] [address] [id number] [address] [place] [id number] 05 Apr, 2017 Dental examination Z01.20 [facility] [address] [id number] [address] [place] [phone] Mar, Dyspepsia R10.13 [facility] [address] [id number] [address] [place] [address] Mar, Generalized anxiety disorder F41.1 [facility] [address] [id number] [address] [place] [address] Mar, Encounter for dental examina tion Z01.20 [facility] [address] [id number] [address] [place] [address] [id number] Mar, [facility] [address] [id number] [address] [place] [address] [id number] Mar, Dental examination Z01.20 [facility] [address] [id number] [address] [place] [phone] Feb, Hypertension I10 and Tachyca rdia R00.0 [facility] [address] [id number] [address] [place] [address] Feb, [facility] [address] [id number] [address] [place] [address] Feb, Generalized anxiety disorder F41.1 [facility] [address] [id number] [address] [place] [address] [id number] Feb, Dental examination Z01.20 [facility] [address] [id number] [address] [place] [address] Jan, Generalized anxiety disorder F41.1 [facility] [address] [id number] [address] [place] [address] December, Generalized anxiety disorder F41.1 [facility] [address] [id number] [address] [place] [address] [id number] December, Encounter for dental examina tion Z01.20 [facility] [address] [id number] [address] [place] [phone] Nov, [facility] [address] [id number] [address] [place] [phone] Nov, [facility] [address] [id number] [address] [place] [address] Nov, Generalized anxiety disorder F41.1 [facility] [address] [id number] [address] [place] [phone] Oct, [facility] [address] [id number] [address] [place] [address] [id number] Oct, Dental examination Z01.20 [facility] [address] [id number] [address] [place] [address] Oct, Vaginal dryness N89.8 [facility] [address] [id number] [address] [place] [address] Oct, Pseudoseizures F44.5 [facility] [address] [id number] [address] [place] [address] Oct, Generalized anxiety disorder F41.1 [place] [address] [facility] [id number] [address] [place] [phone] 28 Sep, 2016 Abnormal uterine bleeding (A UB) N93.9 ; Vaginal dryness N89.8 and Screening breast examination Z12.39 [place] [address] [place] [id number] [address] [place] [address] 20 Sep, 2016 Dental examination Z01.20 [place] [address] [place] [id number] [address] [place] [phone] 20 Sep, 2016 Generalized anxiety disorder F41.1 [place] [address] [place] [id number] [address] [place] [address] 06 Sep, 2016 Unspecified ovarian cyst, ri ght side N83.201 ; Unspecified ovarian cyst, left side N83.202 ; Yeast infection of the vagina B37.3 ; Mitral valve prolapse I34.1 and Hypertension I10 [place] [address] [place] [id number] [address] [place] [address] Aug, Generalized anxiety disorder F41.1 [place] [address] [place] [id number] [address] [place] [address] Jul, [place] [address] [place] [id number] [place] [address] Jul, Generalized anxiety disorder F41.1 [place] [address] [place] [id number] [address] [place] [address] Jun, Generalized anxiety disorder F41.1 [place] [address] [place] [id number] [address] [place] [address] May, Encounter for immunization Z 23 [place] [address] [place] [id number] [address] [place] [phone] 17 May, 2016 Generalized anxiety disorder F41.1 and Depressive disorder, not elsewhere classified F32.9 [place] [address] [place] [id number] [address] [place] [address] 28 Apr, 2016 Hypertension I10 [place] [address] [place] [id number] [address] [place] [address] Apr, Cervicalgia M54.2 [facility] [address] [id number] [address] [place] [phone] 12 Apr, 2016 Cervicalgia M54.2 [facility] [address] [id number] [address] [place] [address] Mar, Generalized anxiety disorder F41.1 and Depressive disorder, not elsewhere classified F32.9 [facility] [address] [id number] [address] [place] [address] [id number] 14 Feb, 2016 Visit for dental examination Z01.20 [facility] [address] [id number] [address] [place] [address] 11 Feb, 2016 Pseudoseizures F44.5 ; Migra ine without status migrainosus, not intractable, unspecified migraine type G43.909 and Essential hypertension I10 [facility] [address] [id number] [address] [place] [address] [id number] Feb, Dental examination Z01.20 [facility] [address] [id number] [address] [place] [address] Feb, Generalized anxiety disorder F41.1 and Depressive disorder, not elsewhere classified F32.9 [facility] [address] [id number] [address] [place] [address] Jan, Tachycardia R00.0 [facility] [address] [id number] [address] [place] [address] December, Eustachian tube dysfunction, bilateral H69.83 [facility] [address] [id number] [address] [place] [address] December, Generalized anxiety disorder F41.1 and Depressive disorder, not elsewhere classified F32.9 [facility] [address] [id number] [address] [place] [address] Nov, [facility] [address] [facility] [id number] [address] [place] [address] Nov, [place] [address] [place] [id number] [address] [place] [address] Nov, Hypertension I10 ; Onychomyc osis B35.1 [...] cyst of left ovary N83.29 [place] [address] [address] 14 Nov, 2015 Sinusitis J32.9 [place] [address] [place] [id number] [address] [place] [address] Oct, Complex cyst of left ovary N 83.29 [place] [address] [place] [id number] [address] [place] [address] Oct, Onychomycosis B35.1 [facility] [id number] [place] [address] [id number] 17 Oct, 2015 Dental examination Z01.20 [place] [address] [place] [id number] [address] [place] [address] 09 Oct, 2015 Well woman exam Z01.419 [...] History of colon polyps Z86.010 [place] [address] [place] [id number] [address] [place] [phone] 03 Mar, 2016 Generalized anxiety disorder F41.1 and Depressive disorder, not elsewhere classified F32.9 [facility] [address] [id number] [address] [place] [phone] Sep, Hypertension I10 and Onychom ycosis B35.1 [facility] [address] [id number] [address] [place] [phone] Sep, Skin tags, multiple acquired L91.8 [facility] [address] [id number] [address] [place] [id number] Aug, [facility] [address] [id number] [address] [place] [phone] Aug, [facility] [address] [id number] [address] [place] [address] Aug, [facility] [address] [id number] [address] [place] [phone] Aug, Generalized anxiety disorder F41.1 and Depressive disorder, not elsewhere classified F32.9 [facility] [address] [id number] [address] [place] [address] Jul, Skin lesion L98.9 [facility] [address] [id number] [address] [place] [address] Jun, Generalized anxiety disorder F41.1 and Depressive disorder, not elsewhere classified F32.9 [facility] [address] [id number] [address] [place] [address] Jun, [facility] [address] [id number] [address] [place] [address] Jun, Generalized anxiety disorder F41.1 [facility] [address] [id number] [address] [place] [address] May, Encounter for immunization Z 23 and Right shoulder pain M25.511 [facility] [address] [id number] [address] [place] [phone] Apr, [facility] [address] [id number] [address] [place] [phone] 14 Apr, 2015 Generalized anxiety disorder 300.02 and Depressive disorder, not elsewhere classified 311 [facility] [address] [id number] [address] [place] [id number] Mar, Dental examination V72.2 [facility] [address] [id number] [address] [place] [phone] Mar, Generalized anxiety disorder 300.02 and Depressive disorder, not elsewhere classified 311 [facility] [address] [id number] [address] [place] [phone] Mar, Depression, major, recurrent , 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.35 and 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 [facility] [address] [id number] [address] [place] [phone] Feb, Generalized anxiety disorder 300.02 and Depressive disorder, not elsewhere classified 311 [facility] [address] [id number] [address] [place] [id number] Feb, Dental examination V72.2 [facility] [address] [id number] [address] [place] [phone] Jan, Generalized anxiety disorder 300.02 and Depressive disorder, not elsewhere classified 311 [facility] [address] [id number] [address] [place] [phone] Jan, [facility] [address] [id number] [address] [place] [phone] December, Generalized anxiety disorder 300.02 and Depressive disorder, not elsewhere classified 311 [facility] [address] [id number] [address] [place] [phone] December, Major depressive disorder, r ecurrent, unspecified 296.30 and Panic disorder with agoraphobia 300.21 [facility] [address] [id number] [address] [place] [phone] Nov, [facility] [address] [id number] [address] [place] [address] [address] Nov, [facility] [address] [id number] [address] [place] [address], [place] [address] Oct, [facility] [address] [id number] [address] [place] [address], [place] [address] Oct, [facility] [address] [id number] [address] [place] [address], [place] [address] Oct, [facility] [address] [id number] [address] [place] [address], [place] [address] Oct, [facility] [address] [id number] [address] [place] [address], [place] [address] Sep, [facility] [address] [id number] [address] [place] [address], [place] [address] Sep, [facility] [address] [id number] [address] [place] [address], [place] [address] Sep, [facility] [address] [id number] [address] [place] [address], [place] [address] Sep, [facility] [address] [id number] [address] [place] [address], [place] [address] Sep, [facility] [address] [id number] [address] [place] [address], [place] [address] Sep, [facility] [address] [id number] [address] [place] [address], [place] [address] Sep, 2014 [facility] [address] [id number] [address] [place] [address], [place] [address] Sep, [facility] [address] [id number] [address] [place] [address], [place] [address] Sep, 2014 [facility] [address] [id number] [address] [place] [address], [place] [address] Sep, [facility] [address] [id number] [address] [place] [address], [place] [address] Aug, [facility] [address] [id number] [address] [place] [address], [place] [address] Aug, [facility] [address] [id number] [address] [place] [address], [place] [address] Jul, [facility] [address] [id number] [address] [place] [address], [place] [address] Jul, [facility] [address] [id number] [address] [place] [address], [place] [address] Jul, [facility] [address] [id number] [address] [place] [address], [place] [address] Jul, [facility] [address] [id number] [address] [place] [address], [place] [address] Jul, [facility] [address] [id number] [address] [place] [address], [place] [address] Jul, [facility] [address] [id number] [address] [place] [address], [place] [address] Jul, [facility] [address] [id number] [address] [place] [address], [place] [address] Jul, [facility] [address] [id number] [address] [place] [address], [place] [address] Jul, [facility] [address] [id number] [address] [place] [address], [place] [address] Jul, [facility] [address] [id number] [address] [place] [address], [place] [address] Jul, [facility] [address] [id number] [address] [place] [address], [place] [address] Jul, [facility] [address] [id number] [address] [place] [address], [place] [address] Jun, [facility] [address] [id number] [address] [place] [address], [place] [address] Jun, [facility] [address] [id number] [address] [place] [address], [place] [address] May, [facility] [address] [id number] [address] [place] [address], [place] [address] May, [facility] [address] [id number] [address] [place] [address], [place] [address] May, [facility] [address] [id number] [address] [place] [address], [place] [address] May, [facility] [address] [id number] [address] [place] [address], [place] [address] May, [facility] [address] [id number] [address] [place] [address], [place] [address] May, [facility] [address] [id number] [address] [place] [address], [place] [address] May, [facility] [address] [id number] [address] [place] [address], [place] [address] May, [facility] [address] [id number] [address] [place] [address], [place] [address] May, [facility] [address] [id number] [address] [place] [address], [place] [address] May, [facility] [address] [id number] [address] [place] [address] May, [facility] [address] [id number] [address] [place] [address] May, [facility] [address] [id number] [address] [place] [address] 30 Apr, 2014 [facility] [address] [id number] [address] [place] [address], [place] [address] 30 Apr, 2014 [facility] [address] [id number] [address] [place] [address], [place] [address] 29 Apr, 2014 [facility] [address] [id number] [address] [place] [address], [place] [address] 29 Apr, 2014 [facility] [address] [id number] [address] [place] [address], [place] [address] Apr, [facility] [address] [id number] [address] [place] [address], [place] [address] Apr, [facility] [address] [id number] [address] [place] [address], [place] [address] Feb, [facility] [address] [id number] [address] [place] [address], [place] [address] Feb, [facility] [address] [id number] [address] [place] [address], [place] [address] Feb, [facility] [address] [id number] [address] [place] [address], [place] [address] Feb, [facility] [address] [id number] [address] [place] [address], [place] [address] Feb, [facility] [address] [id number] [address] [place] [address], [place] [address] Feb, [facility] [address] [id number] [address] [place] [address], [place] [address] Jan, [facility] [address] [id number] [address] [place] [address], [place] [address] Jan, [facility] [address] [id number] [address] [place] [address], [place] [address] Jan, [facility] [address] [id number] [address] [place] [address], [place] [address] Jan, [facility] [address] [id number] [address] [place] [address], [place] [address] Jan, [facility] [address] [id number] [address] [place] [address], [place] [address] Jan, [facility] [address] [id number] [address] [place] [address], [place] [address] Jan, [facility] [address] [id number] [address] [place] [address], [place] [address] Jan, [facility] [address] [id number] [facility] [address] December, [facility] [address] [id number] [facility] [address] December, [facility] [address] [id number] [address] [place] [address], [place] [address] December, [facility] [address] [id number] [address] [place] [address], [place] [address] December, [facility] [address] [id number] [address] [place] [address], [place] [address] Nov, [facility] [address] [id number] [address] [place] [address], [place] [address] Nov, [facility] [address] [id number] [address] [place] [address], [place] [address] Nov, [facility] [address] [id number] [address] [place] [address], [place] [address] Nov, [facility] [address] [id number] [address] [place] [address], [place] [address] Nov, [facility] [address] [id number] [address] [place] [address], [place] [address] Nov, [facility] [address] [id number] [address] [place] [address], [place] [address] Nov, [facility] [address] [id number] [address] [place] [address], [place] [address] Nov, [facility] [address] [id number] [address] [place] [address], [place] [address] Oct, [facility] [address] [id number] [address] [place] [address], [place] [address] Oct, [facility] [address] [id number] [address] [place] [address], [place] [address] Sep, [facility] [address] [id number] [address] [address] Sep, [facility] [address] [id number] [address] [place] [address], [place] [id number] Sep, [facility] [address] [id number] [address] [place] [address], [place] [address] Sep, [facility] [address] [id number] [address] [place] [address], [place] [address] Sep, [facility] [address] [id number] [address] [place] [address], [place] [address] Sep, [facility] [address] [id number] [address] [place] [address], [place] [address] Aug, [facility] [address] [id number] [address] [place] [address], [place] [address] Aug, [facility] [address] [id number] [address] [place] [address], [place] [address] Aug, [facility] [address] [id number] [address] [place] [address], [place] [address] Aug, [facility] [address] [id number] [address] [place] [address], [place] [address] Jul, [facility] [address] [id number] [address] [place] [address], [place] [address] Jul, [facility] [address] [id number] [address] [place] [address], [place] [address] Jul, [facility] [address] [id number] [address] [place] [address], [place] [address] Jul, [facility] [address] [id number] [address] [place] [address], [place] [address] Jun, [facility] [address] [id number] [address] [place] [address], [place] [address] Jun, [facility] [address] [id number] [address] [place] [address], [place] [address] May, [facility] [address] [id number] [facility] [address] 24 May, 2013 [facility] [address] [id number] [address] [place] [address], [place] [address] May, [facility] [address] [id number] [address] [place] [address], [place] [address] May, [facility] [address] [id number] [address] [place] [address], [place] [address] May, [facility] [address] [id number] [address] [place] [address], [place] [address] Apr, [facility] [address] [id number] [address] [place] [address], [place] [address] Apr, [facility] [address] [id number] [address] [place] [address], [place] [address] Mar, [facility] [address] [id number] [address] [place] [address], [place] [address] Mar, [facility] [address] [id number] [address] [place] [address], [place] [address] Mar, [facility] [address] [id number] [address] [place] [address], [place] [address] Mar, [facility] [address] [id number] [address] [place] [address], [place] [address] Feb, [facility] [address] [id number] [address] [place] [address], [place] [address] Feb, [facility] [address] [id number] [address] [place] [address], [place] [address] 16 Feb, 2013 [facility] [address] [id number] [address] [place] [address], [place] [address] Feb, [facility] [address] [id number] [address] [place] [address], [place] [address] Feb, [facility] [address] [id number] [address] [place] [address], [place] [address] Jan, [facility] [address] [id number] [address] [place] [address], [place] [address] Jan, [facility] [address] [id number] [address] [place] [address], [place] [address] Jan, [facility] [address] [id number] [address] [place] [address], [place] [address] Jan, [facility] [address] [id number] [address] [place] [address], [place] [address] Jan, [facility] [address] [id number] [address] [place] [address], [place] [address] December, [facility] [address] [id number] [address] [place] [address], [place] [address] December, [facility] [address] [id number] [address] [place] [address], [place] [address] Nov, [facility] [address] [id number] [address] [place] [address], [place] [address] Nov, [facility] [address] [id number] [address] [place] [address], [place] [address] Oct, [facility] [address] [id number] [address] [place] [address], [place] [address] Oct, [facility] [address] [id number] [address] [place] [address], [place] [address] Oct, [facility] [address] [id number] [address] [place] [address], [place] [address] 14 Sep, 2012 [facility] [address] [id number] [address] [place] [address], [place] [address] Aug, [facility] [address] [id number] [address] [place] [address], [place] [address] 16 Aug, 2012 [facility] [address] [id number] [address] [place] [address], [place] [address] Aug, [facility] [address] [id number] [address] [place] [address], [place] [address] Aug, [facility] [address] [id number] [address] [place] [address], [place] [address] Jul, [facility] [address] [id number] [address] [place] [address], [place] [address] Jul, [facility] [address] [id number] [address] [place] [address], [place] [address] Jul, [facility] [address] [id number] [address] [place] [address], [place] [address] Jul, [facility] [address] [id number] [address] [place] [address], [place] [address] Jul, [facility] [address] [id number] [address] [place] [address], [place] [address] Jul, [facility] [address] [id number] [address] [place] [address], [place] [address] Jul, [facility] [address] [id number] [address] [place] [address], [place] [address] Jul, [facility] [address] [id number] [address] [place] [address], [place] [address] Jun, [facility] [address] [id number] [address] [place] [address], [place] [address] Jun, [facility] [address] [id number] [address] [place] [address], [place] [address] Jun, [facility] [address] [id number] [address] [place] [address], [place] [address] Jun, [facility] [address] [id number] [address] [place] [address], [place] [address] Jun, [facility] [address] [id number] [address] [place] [address], [place] [address] Jun, [facility] [address] [id number] [address] [place] [address], [place] [address] May, [facility] [address] [id number] [address] [place] [address], [place] [address] May, [facility] [address] [id number] [address] [place] [address], [place] [address] May, [facility] [address] [id number] [address] [place] [address], [place] [address] May, [facility] [address] [id number] [address] [place] [address], [place] [address] Apr, [facility] [address] [id number] [address] [place] [address], [place] [address] 06 Apr, 2012 [facility] [address] [id number] [address] [place] [address], [place] [address] Mar, [facility] [address] [id number] [address] [place] [address], [place] [address] Jan, [facility] [address] [id number] [address] [place] [address], [place] [address] 20 Jan, 2012 [facility] [address] [id number] [address] [place] [address], [place] [address] 16 Jan, 2012 [facility] [address] [id number] [address] [place] [address], [place] [address] 15 Jan, 2012 [facility] [address] [id number] [address] [place] [address], [place] [address] 14 Jan, 2012 [facility] [address] [id number] [address] [place] [address], [place] [address] 14 Jan, 2012 [facility] [address] [id number] [address] [place] [address], [place] [address] 07 Jan, 2012 [facility] [address] [id number] [address] [place] [address], [place] [address] December, [facility] [address] [id number] [address] [place] [address], [place] [address] December, [facility] [address] [id number] [address] [place] [address], [place] [address] December, [facility] [address] [id number] [address] [place] [address], [place] [address] December, [facility] [address] [id number] [address] [place] [address], [place] [address] Nov, [facility] [address] [id number] [address] [place] [address], [place] [address] Nov, [facility] [address] [id number] [address] [place] [address], [place] [address] Oct, [facility] [address] [id number] [address] [place] [address], [place] [address] Oct, [facility] [address] [id number] [address] [place] [address], [place] [address] Oct, [facility] [address] [id number] [address] [place] [address], [place] [address] Sep, [facility] [address] [id number] [address] [place] [address], [place] [address] Sep, [facility] [address] [id number] [address] [place] [address], [place] [address] Sep, [facility] [address] [id number] [address] [place] [address], [place] [address] Aug, [facility] [address] [id number] [address] [place] [address], [place] [address] Aug, [facility] [address] [id number] [address] [place] [address], [place] [address] Aug, [facility] [address] [id number] [address] [place] [address], [place] [address] Aug, [facility] [address] [id number] [address] [place] [address], [place] [address] Aug, [facility] [address] [id number] [address] [place] [address], [place] [address] Aug, [facility] [address] [id number] [address] [place] [address], [place] [address] Aug, [facility] [address] [id number] [address] [place] [address], [place] [address] Jul, [facility] [address] [id number] [address] [place] [address], [place] [address] Jul, [facility] [address] [id number] [address] [place] [address], [place] [address] 30 Jun, 2011 [facility] [address] [id number] [address] [place] [address], [place] [address] 28 Jun, 2011 [facility] [address] [id number] [address] [place] [address], [place] [address] 17 Jun, 2011 [facility] [address] [id number] [address] [place] [address], [place] [address] 15 Jun, 2011 [facility] [address] [id number] [address] [place] [address], [place] [address] 14 Jun, 2011 [facility] [address] [id number] [address] [place] [address], [place] [address] 14 Jun, 2011 [facility] [address] [id number] [address] [place] [address], [place] [address] Jun, [facility] [address] [id number] [address] [place] [address], [place] [address] Jun, [facility] [address] [id number] [address] [place] [address], [place] [address] Jun, [facility] [address] [id number] [address] [place] [address], [place] [address] Jun, [facility] [address] [id number] [address] [place] [address], [place] [address] May, [facility] [address] [id number] [address] [place] [address], [place] [address] May, [facility] [address] [id number] [address] [place] [address], [place] [address] 25 May, 2011 [facility] [address] [id number] [address] [place] [address], [place] [address] 24 May, 2011 [facility] [address] [id number] [address] [place] [address], [place] [address] 18 May, 2011 [facility] [address] [id number] [address] [place] [address], [place] [address] 13 May, 2011 [facility] [address] [id number] [address] [place] [address], [place] [address] 13 Feb, 2011 [facility] [address] [id number] [address] [place] [address], [place] [address] December, [facility] [address] [id number] [address] [place] [address], [place] [address] 29 Jul, 2010 [facility] [address] [id number] [address] [place] [address], [place] [address] 29 Jul, 2010 [facility] [address] [id number] [address] [place] [address], [place] [address] 22 Jul, 2010 [facility] [address] [id number] [address] [place] [address], [place] [address] 21 Jul, 2010 [facility] [address] [id number] [address] [place] [address], [place] [address] 15 Jun, 2010 [facility] [address] [id number] [address] [place] [address], [place] [address] 31 Jul, 2009 [facility] [address] [id number] [address] [place] [address], [place] [address] 23 Jul, 2009 [facility] [address] [id number] [address] [place] [address], [place] [address] 23 Jul, 2009 [facility] [address] [id number] [address] [place] [address], [place] [address] 17 Jul, 2009 [facility] [address] [id number] [address] [place] [address], [place] [address] 17 Jul, 2009 [facility] [address] [id number] [address] [place] [address] 10 Jul, 2009 [facility] [address] [facility] [id number] [address] [place] [address] Jan, [facility] [address] [facility] [id number] [address] [place] [address] 16 Sep, 2008 [facility] [address] [facility] [id number] [address] [place] [address] 11 Sep, 2008 IMMUNIZATIONS No Known Immunizations SOCIAL HISTORY Never Assessed REASON FOR VISIT PLAN OF CARE VITAL SIGNS MEDICATIONS Unknown Medications RESULTS No Results PROCEDURES Procedure Date Ordered Result Body Site PSYTX PT&/FAMILY 45 MINUTES May 24, 2014 INSTRUCTIONS MEDICATIONS ADMINISTERED No Known Medications [...]
--- OUTSIDE RECORDS SUMMARY | 2020-01-27 10:15 | XMS REPORT ---
Author Author Silvia WILKINS Organization [facility] Address [address] [place] [address] Care Team Providers Care Card Painter Name Role Phone LETTY WILKINS Unavailable PROBLEMS Type Condition ICD9-CM Code [id number] Code Onset Dates Condition S tatus SNOMED Code Problem Hypertension I10 Active 3038224 3 Problem Generalized anxiety disorder F41.1 A ctive 499536923 Problem History of colon polyps Z86.010 Active 610278686 Problem History of diverticulitis Z87.19 Acti ve [id number] Problem Family history of diabetes mellitus Z83.3 Active 082836558 Problem Excessive and frequent menstruation with irregular cycle N92.1 Active 867759166 Problem Hot flashes N95.1 Active 88953666 8 Problem Gastroesophageal reflux disease with esophagitis K 21.0 Active 915580262 Problem History of ovarian cyst Z87.42 Active 35327244 Problem Diverticulitis K57.92 Active 10378 6006 Problem Dense breast tissue R92.2 Active 660093771 Problem Perimenopausal N95.1 Active 76370 0565630964 Problem Mitral valve prolapse I34.1 Active 119883921 Problem Abnormal uterine bleeding (AUB) N93.9 Active [id number] Problem Tachycardia R00.0 Active 0176264 ALLERGIES No Information ENCOUNTERS Encounter Location Date Diagnosis [facility] [address] [id number] [address] [place] [phone] May, [facility] [address] [facility] [id number] [address] [place] [phone] Apr, [facility] [address] [facility] [id number] [address] [place] [address] Apr, [facility] [address] [id number] [address] [place] [address] Mar, Caries K02.9 ; Dental examin ation Z01.20 ; Periodontitis K05.30 and Oral health maintenance status requiring routine preventive dental care K08.9 [facility] [address] [id number] [address] [place] [address] Mar, Generalized anxiety disorder F41.1 [facility] [address] [facility] [id number] [address] [place] [phone] Mar, Gastrointestinal hemorrhage associated with gastroduodenitis K29.91 [facility] [address] [id number] [address] [place] [address] Mar, Generalized anxiety disorder F41.1 and Bereavement Z63.4 [facility] [address] [facility] [id number] [address] [place] [address] Mar, [facility] [address] [facility] [id number] [address] [place] [phone] Mar, [facility] [address] [facility] [id number] [address] [place] [phone] Mar, [facility] [address] [facility] [id number] [address] [place] [address] Mar, Tachycardia R00.0 and Essent ial hypertension I10 [facility] [address] [facility] [id number] [address] [place] [address] Feb, Generalized anxiety disorder F41.1 [facility] [address] [facility] [id number] [address] [place] [address] Feb, Generalized anxiety disorder F41.1 and Bereavement Z63.4 [facility] [address] [facility] [id number] [address] [place] [address] Feb, Generalized anxiety disorder F41.1 [facility] [address] [facility] [id number] [address] [place] [address] Feb, Generalized anxiety disorder F41.1 and Bereavement Z63.4 [facility] [address] [facility] [id number] [address] [place] [phone] 27 Jan, 2019 [facility] [address] [id number] [address] [place] [address] 20 Jan, 2019 Breast cancer screening by trenton crenshaw Z12.31 [facility] [address] [facility] [id number] [address] [place] [address] 13 Jan, 2019 Generalized anxiety disorder F41.1 and Bereavement Z63.4 [facility] [address] [facility] [id number] [address] [place] [address] Jan, [facility] [address] [facility] [id number] [address] [place] [address] December, Generalized anxiety disorder F41.1 and Bereavement Z63.4 [facility] [place] [address] [facility] [id number] [address] [place] [address] December, Diverticulitis K57.92 ; Dysu nick R30.0 ; Other constipation K59.09 and Lower abdominal pain R10.30 [facility] [address] [facility] [id number] [address] [place] [address] Nov, Diverticulitis K57.92 [facility] [address] [facility] [id number] [address] [place] [address] Nov, Generalized anxiety disorder F41.1 and Bereavement Z63.4 [facility] [address] [facility] [id number] [address] [place] [address] Nov, Generalized anxiety disorder F41.1 and Bereavement Z63.4 [facility] [address] [facility] [id number] [address] [place] [address] Nov, Diverticulitis K57.92 [facility] [address] [facility] [id number] [address] [place] [address] Oct, Diverticulitis K57.92 [facility] [address] [facility] [id number] [address] [place] [address] Oct, Diverticulitis K57.92 [facility] [address] [facility] [id number] [address] [place] [address] Oct, Generalized anxiety disorder F41.1 [facility] [address] [facility] [id number] [address] [place] [address] Oct, Right lower quadrant abdomin al pain R10.31 and Diverticulitis K57.92 [facility] [address] [facility] [id number] [address] [place] [address] Sep, Generalized anxiety disorder F41.1 and Bereavement Z63.4 [facility] [address] [facility] [id number] [address] [place] [address] Aug, [facility] [address] [facility] [id number] [address] [place] [address] Aug, Generalized anxiety disorder F41.1 and Bereavement Z63.4 [facility] [address] [facility] [id number] [address] [address] Aug, Caries K02.9 [facility] [address] [facility] [id number] [address] [place] [address] Jul, Generalized anxiety disorder F41.1 and Bereavement Z63.4 [facility] [address] [facility] [id number] [address] [place] [address] Jul, Other acute gastritis withou t hemorrhage K29.00 ; Generalized anxiety disorder F41.1 ; Tachycardia R00.0 and Essential hypertension I10 [facility] [address] [facility] [id number] [address] [place] [address] Jul, Generalized anxiety disorder F41.1 and Bereavement Z63.4 [facility] [address] [facility] [id number] [address] [place] [address] Jun, Generalized anxiety disorder F41.1 and Bereavement Z63.4 [facility] [address] [facility] [id number] [address] [place] [address] Jun, Generalized anxiety disorder F41.1 and Bereavement Z63.4 [facility] [address] [id number] [address] [place] [address] Jun, Dental examination Z01.20 [facility] [address] [facility] [id number] [address] [place] [address] May, Generalized anxiety disorder F41.1 and Bereavement Z63.4 [facility] [address] [facility] [id number] [address] [place] [address] May, Encounter for immunization Z 23 [facility] [address] [facility] [id number] [address] [place] [address] May, Generalized anxiety disorder F41.1 and Bereavement Z63.4 [facility] [address] [facility] [id number] [address] [place] [address] May, [facility] [address] [facility] [id number] [address] [place] [address] 24 Apr, 2018 Generalized anxiety disorder F41.1 and Bereavement Z63.4 [facility] [address] [facility] [id number] [address] [place] [id number] 17 Apr, 2018 [facility] [address] [facility] [id number] [address] [place] [address] 13 Apr, 2018 Diverticulitis K57.92 [facility] [address] [facility] [id number] [address] [place] [phone] 10 Apr, 2018 Generalized anxiety disorder F41.1 and Bereavement Z63.4 [facility] [address] [facility] [id number] [address] [place] [phone] Mar, [facility] [address] [facility] [id number] [address] [place] [address] Mar, Diverticulitis K57.92 [facility] [address] [facility] [id number] [address] [place] [address] Mar, Generalized anxiety disorder F41.1 and Bereavement Z63.4 [facility] [place] [address] [id number] [address] [place] [address] Mar, Hypertension I10 [facility] [address] [id number] [address] [place] [address] Mar, Generalized anxiety disorder F41.1 and Bereavement Z63.4 [facility] [address] [id number] [address] [place] [address] Feb, Generalized anxiety disorder F41.1 and Bereavement Z63.4 [facility] [address] [id number] [address] [place] [phone] Feb, [facility] [address] [id number] [address] [place] [phone] Feb, Generalized anxiety disorder F41.1 and Bereavement Z63.4 [facility] [address] [id number] [address] [place] [address] Feb, Generalized anxiety disorder F41.1 and Bereavement Z63.4 [facility] [address] [id number] [address] [place] [phone] Jan, Hypertension I10 and Acute n on-recurrent maxillary sinusitis J01.00 [facility] [address] [id number] [address] [place] [phone] December, [facility] [address] [id number] [address] [place] [address] December, Hypertension I10 [facility] [address] [id number] [address] [place] [address] December, Generalized anxiety disorder F41.1 [facility] [address] [id number] [place] [address] Oct, Encounter for dental examina tion Z01.20 [facility] [address] [id number] [place] [address] 06 Oct, 2017 Encounter for dental examina tion Z01.20 [facility] [address] [id number] [place] [address] 02 Oct, 2017 Dental examination Z01.20 [facility] [address] [id number] [address] [place] [phone] Oct, Generalized anxiety disorder F41.1 [facility] [address] [id number] [place] [address] Aug, Dental examination Z01.20 [facility] [address] [id number] [address] [place] [address] Aug, Generalized anxiety disorder F41.1 [facility] [address] [id number] [address] [place] [address] Aug, [facility] [address] [id number] [place] [address] Aug, Encounter for dental examina tion Z01.20 [facility] [address] [id number] [address] [place] [address] Aug, Subacute maxillary sinusitis J01.00 [facility] [address] [id number] [address] [place] [address] 22 Jul, 2017 Dental examination Z01.20 [facility] [address] [id number] [address] [place] [address] Jul, Generalized anxiety disorder F41.1 [facility] [address] [id number] [address] [place] [address] 11 Jul, 2017 Diverticulitis K57.92 [facility] [address] [id number] [address] [place] [address] 28 Jun, 2017 Encounter for immunization Z 23 [facility] [address] [id number] [place] [address] 22 Jun, 2017 Dental examination Z01.20 [facility] [address] [id number] [address] [place] [address] Jun, Generalized anxiety disorder F41.1 [facility] [address] [id number] [address] [place] [address] Jun, Dental examination Z01.20 [facility] [address] [id number] [address] [place] [address] May, [facility] [address] [id number] [address] [place] [id number] May, Dental examination Z01.20 [facility] [address] [id number] [address] [place] [address] [id number] May, Dental examination Z01.20 [facility] [address] [id number] [address] [place] [address] May, Dental examination Z01.20 [facility] [address] [id number] [address] [place] [address] May, [facility] [address] [id number] [address] [place] [address] May, Generalized anxiety disorder F41.1 [facility] [address] [id number] [address] [place] [address] May, Localized edema R60.0 ; Yeas t vaginitis B37.3 and Gastroesophageal reflux disease with esophagitis K21.0 [facility] [address] [id number] [address] [place] [id number] Apr, Dental examination Z01.20 [facility] [address] [id number] [address] [place] [address] Apr, Dental examination Z01.20 [facility] [address] [id number] [address] [place] [address] Apr, Dental examination Z01.20 [facility] [address] [id number] [address] [place] [address] Mar, Dyspepsia R10.13 [facility] [address] [id number] [address] [place] [address] Mar, Generalized anxiety disorder F41.1 [facility] [address] [id number] [place] [address] Mar, Encounter for dental examina tion Z01.20 [facility] [address] [id number] [address] [place] [id number] Mar, [facility] [address] [id number] [address] [place] [address] [id number] Mar, Dental examination Z01.20 [facility] [address] [id number] [address] [place] [address] Feb, Hypertension I10 and Tachyca rdia R00.0 [facility] [address] [id number] [address] [address] Feb, [facility] [address] [id number] [address] [place] [phone] Feb, Generalized anxiety disorder F41.1 [facility] [address] [id number] [address] [place] [id number] Feb, Dental examination Z01.20 [facility] [address] [id number] [address] [place] [phone] Jan, Generalized anxiety disorder F41.1 [facility] [address] [id number] [address] [place] [phone] December, Generalized anxiety disorder F41.1 [facility] [address] [id number] [address] [place] [address] [id number] December, Encounter for dental examina tion Z01.20 [facility] [address] [id number] [address] [place] [phone] Nov, [facility] [address] [id number] [address] [place] [phone] Nov, [facility] [address] [id number] [address] [place] [phone] Nov, Generalized anxiety disorder F41.1 [facility] [address] [facility] [id number] [address] [place] [phone] 30 Oct, 2016 [facility] [address] [facility] [id number] [address] [place] [address] [id number] Oct, Dental examination Z01.20 [facility] [address] [place] [id number] [address] [place] [address] Oct, Vaginal dryness N89.8 [facility] [address] [facility] [id number] [address] [place] [phone] Oct, Pseudoseizures F44.5 [facility] [address] [place] [id number] [address] [place] [phone] Oct, Generalized anxiety disorder F41.1 [facility] [place] [id number] [place] [phone] Sep, Abnormal uterine bleeding (A UB) N93.9 ; Vaginal dryness N89.8 and Screening breast examination Z12.39 [facility] [place] [id number] [place] [phone] Sep, Dental examination Z01.20 [facility] [place] [address] [place] [id number] [address] [place] [phone] Sep, Generalized anxiety disorder F41.1 [facility] [place] [address] [place] [id number] [address] [place] [phone] 06 Sep, 2016 Unspecified ovarian cyst, ri ght side N83.201 ; Unspecified ovarian cyst, left side N83.202 ; Yeast infection of the vagina B37.3 ; Mitral valve prolapse I34.1 and Hypertension I10 [facility] [place] [address] [place] [id number] [address] [place] [phone] Aug, Generalized anxiety disorder F41.1 [facility] [place] [address] [place] [place] [id number] [address] [place] [phone] Jul, [place] [address] [address] [facility] [id number] [address] [place] [phone] Jul, Generalized anxiety disorder F41.1 [facility] [place] [address] [facility] [id number] [address] [place] [phone] 15 Jun, 2016 Generalized anxiety disorder F41.1 [facility] [place] [address] [facility] [id number] [address] [place] [phone] 28 May, 2016 Encounter for immunization Z 23 [facility] [place] [address] [facility] [id number] [address] [place] [phone] 17 May, 2016 Generalized anxiety disorder F41.1 and Depressive disorder, not elsewhere classified F32.9 [facility] [place] [address] [facility] [id number] [address] [place] [phone] 28 Apr, 2016 Hypertension I10 [facility] [place] [address] [facility] [facility] [id number] [address] [place] [id number] 22 Apr, 2016 Cervicalgia M54.2 [facility] [address] [facility] [id number] [address] [place] [id number] 12 Apr, 2016 Cervicalgia M54.2 [facility] [address] [facility] [id number] [address] [place] [phone] 09 Mar, 2016 Generalized anxiety disorder F41.1 and Depressive disorder, not elsewhere classified F32.9 [facility] [id number] [place] [id number] 14 Feb, 2016 Visit for dental examination Z01.20 [facility] [address] [facility] [id number] [address] [place] [phone] 11 Feb, 2016 Pseudoseizures F44.5 ; Migra ine without status migrainosus, not intractable, unspecified migraine type G43.909 and Essential hypertension I10 [facility] [address] [place] [id number] [address] [place] [address] [id number] 06 Feb, 2016 Dental examination Z01.20 [facility] [place] [address] [facility] [id number] [address] [place] [phone] 05 Feb, 2016 Generalized anxiety disorder F41.1 and Depressive disorder, not elsewhere classified F32.9 [facility] [address] [facility] [id number] [address] [place] [phone] Jan, Tachycardia R00.0 [facility] [address] [facility] [id number] [address] [place] [phone] December, Eustachian tube dysfunction, bilateral H69.83 [facility] [address] [facility] [id number] [address] [place] [address] December, Generalized anxiety disorder F41.1 and Depressive disorder, not elsewhere classified F32.9 [facility] [address] [facility] [id number] [address] [place] [phone] Nov, [facility] [address] [facility] [id number] [address] [place] [address] Nov, [place] [address] [facility] [id number] [address] [place] [address] Nov, Hypertension I10 ; Onychomyc osis B35.1 [...] and Complex cyst of left ovary N83.29 [facility] [place] [address] [facility] [id number] [address] [place] [phone] 14 Nov, 2015 Sinusitis J32.9 [facility] [place] [address] [facility] [id number] [address] [place] [address] Oct, Complex cyst of left ovary N 83.29 [facility] [place] [address] [facility] [id number] [address] [place] [address] Oct, Onychomycosis B35.1 [facility] [address] [id number] [address] [place] [address] [id number] 17 Oct, 2016 Dental examination Z01.20 [place] [address] [place] [id number] [place] [phone] 09 Oct, 2016 Well woman exam Z01.419 [...] R92.2 and History of colon polyps Z86.010 [place] [address] [address] [place] [id number] [address] [place] [phone] Oct, Generalized anxiety disorder F41.1 and Depressive disorder, not elsewhere classified F32.9 [place] [address] [address] Sep, Hypertension I10 and Onychom ycosis B35.1 [place] [address] [address] 16 Sep, 2015 Skin tags, multiple acquired L91.8 [place] [address] [place] [id number] [address] [place] [phone] Aug, [place] [address] [place] [id number] [address] [place] [address] Aug, [place] [address] [place] [id number] [address] [place] [address] Aug, [place] [address] [place] [id number] [place] [phone] Aug, Generalized anxiety disorder F41.1 and Depressive disorder, not elsewhere classified F32.9 [place] [address] [place] [id number] [address] [place] [phone] Jul, Skin lesion L98.9 [facility] [address] [id number] [address] [place] [phone] Jun, Generalized anxiety disorder F41.1 and Depressive disorder, not elsewhere classified F32.9 [facility] [place] [address] [id number] [address] [place] [address] Jun, [facility] [place] [address] [id number] [address] [place] [address] Jun, Generalized anxiety disorder F41.1 [facility] [place] [address] [id number] [address] [place] [address] May, Encounter for immunization Z 23 and Right shoulder pain M25.511 [facility] [place] [address] [id number] [address] [place] [phone] Apr, [facility] [place] [address] [id number] [address] [place] [phone] 14 Apr, 2015 Generalized anxiety disorder 300.02 and Depressive disorder, not elsewhere classified 311 [facility] [address] [id number] [address] [place] [address] [id number] Mar, Dental examination V72.2 [facility] [place] [address] [id number] [address] [place] [address] Mar, Generalized anxiety disorder 300.02 and Depressive disorder, not elsewhere classified 311 [facility] [place] [address] [id number] [address] [place] [address] Mar, Depression, major, recurrent , 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.35 and 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 [facility] [address] [id number] [address] [place] [phone] Feb, Generalized anxiety disorder 300.02 and Depressive disorder, not elsewhere classified 311 [facility] [address] [id number] [address] [place] [address] [id number] Feb, Dental examination V72.2 [facility] [place] [address] [id number] [address] [place] [address] Jan, Generalized anxiety disorder 300.02 and Depressive disorder, not elsewhere classified 311 [facility] [address] [id number] [address] [place] [address] Jan, [facility] [place] [address] [facility] [id number] [address] [place] [phone] December, Generalized anxiety disorder 300.02 and Depressive disorder, not elsewhere classified 311 [facility] [place] [address] [facility] [id number] [address] [place] [phone] December, Major depressive disorder, r ecurrent, unspecified 296.30 and Panic disorder with agoraphobia 300.21 [facility] [place] [address] [facility] [id number] [address] [place] [address] Nov, [facility] [address] [facility] [id number] [address] [place] [phone] Nov, [facility] [place] [address] [facility] [id number] [address] [place] [phone] Oct, [facility] [place] [address] [facility] [id number] [address] [place] [phone] Oct, [facility] [place] [address] [facility] [id number] [address] [place] [phone] Oct, [facility] [address] [facility] [id number] [address] [place] [phone] Oct, [facility] [place] [address] [facility] [id number] [address] [place] [phone] Sep, [facility] [address] [facility] [id number] [address] [place] [phone] Sep, [facility] [address] [facility] [id number] [address] [place] [phone] Sep, [facility] [place] [address] [facility] [id number] [address] [place] [phone] Sep, [facility] [place] [address] [facility] [id number] [address] [place] [phone] Sep, 2014 [facility] [address] [id number] [address] [place] [address], [place] [address] Sep, 2014 [facility] [address] [id number] [address] [place] [address], [place] [address] Sep, 2014 [facility] [address] [id number] [address] [place] [address], [place] [address] Sep, 2014 [facility] [address] [id number] [address] [place] [address], [place] [address] Sep, 2014 [facility] [address] [id number] [address] [place] [address], [place] [address] Sep, [facility] [address] [id number] [address] [place] [address], [place] [address] Aug, [facility] [address] [id number] [address] [place] [address], [place] [address] Aug, [facility] [address] [id number] [address] [place] [address], [place] [address] Jul, [facility] [address] [id number] [address] [place] [address], [place] [address] Jul, [facility] [address] [id number] [address] [place] [address], [place] [address] 18 Jul, 2014 [facility] [address] [id number] [address] [place] [address], [place] [address] 18 Jul, 2014 [facility] [address] [id number] [address] [place] [address], [place] [address] Jul, [facility] [address] [id number] [address] [place] [address], [place] [address] Jul, [facility] [address] [id number] [address] [place] [address], [place] [address] 05 Jul, 2014 [facility] [address] [id number] [address] [place] [address], [place] [address] 05 Jul, 2014 [facility] [address] [id number] [address] [place] [address], [place] [address] Jul, [facility] [address] [id number] [address] [place] [address], [place] [address] Jul, [facility] [address] [id number] [address] [place] [address], [place] [address] Jul, [facility] [address] [id number] [address] [place] [address], [place] [address] Jul, [facility] [address] [id number] [address] [place] [address], [place] [address] Jun, [facility] [address] [id number] [address] [place] [address], [place] [address] Jun, [facility] [address] [id number] [address] [place] [address], [place] [address] May, [facility] [address] [id number] [address] [place] [address], [place] [address] May, [facility] [address] [id number] [address] [place] [address], [place] [address] May, [facility] [address] [id number] [address] [place] [address], [place] [address] May, [facility] [address] [id number] [address] [place] [address], [place] [address] May, [facility] [address] [id number] [address] [place] [address], [place] [address] May, [facility] [address] [id number] [address] [place] [address], [place] [address] May, [facility] [address] [id number] [address] [place] [address], [place] [address] May, [facility] [address] [id number] [address] [place] [address], [place] [address] May, [facility] [address] [id number] [address] [place] [address], [place] [address] May, [facility] [address] [id number] [address] [place] [address], [place] [address] May, [facility] [address] [id number] [address] [place] [address], [place] [address] May, [facility] [address] [id number] [address] [place] [address], [place] [address] Apr, [facility] [address] [id number] [address] [place] [address], [place] [address] 30 Apr, 2014 [facility] [address] [id number] [address] [place] [address], [place] [address] Apr, [facility] [address] [id number] [address] [place] [address], [place] [address] Apr, [facility] [address] [id number] [address] [place] [address], [place] [address] Apr, [facility] [address] [id number] [address] [place] [address], [place] [address] Apr, [facility] [address] [id number] [address] [place] [address], [place] [address] Feb, [facility] [address] [id number] [address] [place] [address], [place] [address] Feb, [facility] [address] [id number] [address] [place] [address], [place] [address] Feb, [facility] [address] [id number] [address] [place] [address], [place] [address] Feb, [facility] [address] [id number] [address] [place] [address], [place] [address] Feb, [facility] [address] [id number] [address] [place] [address], [place] [address] Feb, [facility] [address] [id number] [address] [place] [address], [place] [address] Jan, [facility] [address] [id number] [address] [place] [address] Jan, [facility] [address] [id number] [facility] [place] [address] Jan, [facility] [address] [id number] [address] [place] [address], [place] [address] Jan, [facility] [address] [id number] [address] [place] [address], [place] [address] Jan, [facility] [address] [id number] [address] [place] [address], [place] [address] Jan, [facility] [address] [id number] [address] [place] [address], [place] [address] Jan, [facility] [address] [id number] [address] [place] [address], [place] [address] Jan, [facility] [address] [id number] [address] [place] [address], [place] [address] December, [facility] [address] [id number] [address] [place] [address], [place] [address] December, [facility] [address] [id number] [address] [place] [address], [place] [address] December, [facility] [address] [id number] [address] [place] [address], [place] [address] December, [facility] [address] [id number] [address] [place] [address], [place] [address] Nov, [facility] [address] [id number] [address] [place] [address], [place] [address] Nov, [facility] [address] [id number] [address] [place] [address], [place] [address] Nov, [facility] [address] [id number] [address] [place] [address], [place] [address] Nov, [facility] [address] [id number] [address] [place] [address], [place] [address] Nov, [facility] [address] [id number] [address] [place] [address], [place] [address] Nov, [facility] [address] [id number] [address] [place] [address], [place] [address] Nov, [facility] [address] [id number] [address] [place] [address], [place] [address] Nov, [facility] [address] [id number] [address] [place] [address], [place] [address] Oct, [facility] [address] [id number] [address] [place] [address], [place] [address] Oct, [facility] [address] [id number] [address] [place] [address], [place] [address] Sep, [facility] [address] [id number] [address] [place] [address], [place] [address] Sep, [facility] [address] [id number] [address] [place] [address], [place] [id number] Sep, [facility] [address] [id number] [address] [place] [address], [place] [address] Sep, [facility] [address] [id number] [address] [place] [address], [place] [address] Sep, [facility] [address] [id number] [address] [place] [address], [place] [address] Sep, [facility] [address] [id number] [address] [place] [address], [place] [address] Aug, [facility] [address] [id number] [address] [place] [address], [place] [address] Aug, [facility] [address] [id number] [address] [place] [address], [place] [address] Aug, [facility] [address] [id number] [address] [place] [address], [place] [address] Aug, [facility] [address] [id number] [address] [place] [address], [place] [address] Jul, [facility] [address] [id number] [address] [place] [address], [place] [address] Jul, [facility] [address] [id number] [address] [place] [address], [place] [address] Jul, [facility] [address] [id number] [address] [place] [address], [place] [address] Jul, [facility] [address] [id number] [address] [place] [address] Jun, [facility] [address] [id number] [address] [place] [address], [place] [address] Jun, [facility] [address] [id number] [address] [place] [address], [place] [address] May, [facility] [address] [id number] [address] [place] [address], [place] [address] May, [facility] [address] [id number] [address] [place] [address], [place] [address] May, [facility] [address] [id number] [address] [place] [address], [place] [address] May, [facility] [address] [id number] [address] [place] [address], [place] [address] May, [facility] [address] [id number] [address] [place] [address], [place] [address] 17 Apr, 2013 [facility] [address] [id number] [address] [place] [address] 10 Apr, 2013 [facility] [address] [id number] [address] [place] [address], [place] [address] 29 Mar, 2013 [facility] [address] [id number] [address] [place] [address], [place] [address] Mar, [facility] [address] [id number] [address] [place] [address], [place] [address] 15 Mar, 2013 [facility] [address] [id number] [address] [place] [address], [place] [address] Mar, [facility] [address] [id number] [address] [place] [address], [place] [address] Feb, [facility] [address] [id number] [address] [place] [address], [place] [address] Feb, [facility] [address] [id number] [address] [place] [address], [place] [address] Feb, [facility] [address] [id number] [address] [place] [address], [place] [address] Feb, [facility] [address] [id number] [address] [place] [address], [place] [address] Feb, [facility] [address] [id number] [address] [place] [address], [place] [address] Jan, [facility] [address] [id number] [address] [place] [address], [place] [address] Jan, [facility] [address] [id number] [address] [place] [address], [place] [address] Jan, [facility] [address] [id number] [address] [place] [address], [place] [address] Jan, [facility] [address] [id number] [address] [place] [address], [place] [address] Jan, [facility] [address] [id number] [address] [place] [address], [place] [address] December, [facility] [address] [id number] [address] [place] [address], [place] [address] December, [facility] [address] [id number] [address] [place] [address], [place] [address] Nov, [facility] [address] [id number] [address] [place] [address], [place] [address] Nov, [facility] [address] [id number] [address] [place] [address], [place] [address] Oct, [facility] [address] [id number] [address] [place] [address], [place] [address] 13 Oct, 2012 [facility] [address] [id number] [address] [place] [address], [place] [address] 05 Oct, 2012 [facility] [address] [id number] [address] [place] [address], [place] [address] 14 Sep, 2012 [facility] [address] [id number] [address] [place] [address], [place] [address] 24 Aug, 2012 [facility] [address] [id number] [address] [place] [address], [place] [address] 16 Aug, 2012 [facility] [address] [id number] [address] [place] [address], [place] [address] 15 Aug, 2012 [facility] [address] [id number] [address] [place] [address], [place] [address] Aug, [facility] [address] [id number] [address] [place] [address], [place] [address] Jul, [facility] [address] [id number] [address] [place] [address], [place] [address] Jul, [facility] [address] [id number] [address] [place] [address], [place] [address] Jul, [facility] [address] [id number] [address] [place] [address], [place] [address] Jul, [facility] [address] [id number] [address] [place] [address], [place] [address] Jul, [facility] [address] [id number] [address] [place] [address], [place] [address] Jul, [facility] [address] [id number] [address] [place] [address], [place] [address] Jul, [facility] [address] [id number] [address] [place] [address], [place] [address] Jul, [facility] [address] [id number] [address] [place] [address], [place] [address] Jun, [facility] [address] [id number] [address] [place] [address], [place] [address] Jun, [facility] [address] [id number] [address] [place] [address], [place] [address] Jun, [facility] [address] [id number] [address] [place] [address], [place] [address] Jun, [facility] [address] [id number] [address] [place] [address], [place] [address] Jun, [facility] [address] [id number] [address] [place] [address], [place] [address] Jun, [facility] [address] [address] [id number] [address] [place] [address], [place] [address] May, [facility] [address] [id number] [address] [place] [address], [place] [address] May, [facility] [address] [id number] [address] [place] [address], [place] [address] May, [facility] [address] [id number] [address] [place] [address], [place] [address] May, [facility] [address] [id number] [address] [place] [address], [place] [address] Apr, [facility] [address] [id number] [address] [place] [address], [place] [address] Apr, [facility] [address] [id number] [address] [place] [address], [place] [address] Mar, [facility] [address] [id number] [address] [place] [address], [place] [address] Jan, [facility] [address] [id number] [address] [place] [address], [place] [address] Jan, [facility] [address] [id number] [address] [place] [address], [place] [address] 16 Jan, 2012 [facility] [address] [id number] [address] [place] [address], [place] [address] 15 Jan, 2012 [facility] [address] [id number] [address] [place] [address], [place] [address] Jan, [facility] [address] [id number] [address] [place] [address], [place] [address] 14 Jan, 2012 [facility] [address] [id number] [address] [place] [address], [place] [address] Jan, [facility] [address] [id number] [address] [place] [address], [place] [address] December, [facility] [address] [id number] [address] [place] [address], [place] [address] December, [facility] [address] [id number] [address] [place] [address], [place] [address] December, [facility] [address] [id number] [address] [place] [address], [place] [address] December, [facility] [address] [id number] [address] [place] [address], [place] [address] Nov, [facility] [address] [id number] [address] [place] [address], [place] [address] Nov, [facility] [address] [id number] [address] [place] [address], [place] [address] Oct, [facility] [address] [id number] [address] [place] [address], [place] [address] Oct, [facility] [address] [id number] [address] [place] [address], [place] [address] 15 Oct, 2011 [facility] [address] [id number] [address] [place] [address], [place] [address] Sep, [facility] [address] [id number] [address] [place] [address], [place] [address] Sep, [facility] [address] [id number] [address] [place] [address], [place] [address] Sep, [facility] [address] [id number] [address] [place] [address], [place] [address] Aug, [facility] [address] [id number] [address] [place] [address], [place] [address] Aug, [facility] [address] [id number] [address] [place] [address], [place] [address] Aug, [facility] [address] [id number] [address] [place] [address], [place] [address] Aug, [facility] [address] [id number] [address] [place] [address], [place] [address] Aug, [facility] [address] [id number] [address] [place] [address], [place] [address] Aug, [facility] [address] [id number] [address] [place] [address], [place] [address] Aug, [facility] [address] [id number] [address] [place] [address], [place] [address] Jul, [facility] [address] [id number] [address] [place] [address], [place] [address] Jul, [facility] [address] [id number] [address] [place] [address], [place] [address] Jun, [facility] [address] [id number] [address] [place] [address], [place] [address] 28 Jun, 2011 [facility] [address] [id number] [address] [place] [address], [place] [address] 17 Jun, 2011 [facility] [address] [id number] [address] [place] [address], [place] [address] 15 Jun, 2011 [facility] [address] [id number] [address] [place] [address], [place] [address] 14 Jun, 2011 [facility] [address] [id number] [address] [place] [address], [place] [address] 14 Jun, 2011 [facility] [address] [id number] [address] [place] [address], [place] [address] 07 Jun, 2011 [facility] [address] [id number] [address] [place] [address], [place] [address] Jun, [facility] [address] [id number] [address] [place] [address], [place] [address] Jun, [facility] [address] [id number] [address] [place] [address], [place] [address] Jun, [facility] [address] [id number] [address] [place] [address], [place] [address] May, [facility] [address] [id number] [address] [place] [address], [place] [address] May, [facility] [address] [id number] [address] [place] [address], [place] [address] May, [facility] [address] [id number] [address] [place] [address], [place] [address] May, [facility] [address] [id number] [address] [place] [address], [place] [address] May, [facility] [address] [id number] [address] [place] [address], [place] [address] May, [facility] [address] [id number] [address] [place] [address], [place] [address] Feb, [facility] [address] [id number] [address] [place] [address], [place] [address] December, [facility] [address] [id number] [address] [place] [address], [place] [address] Jul, [facility] [address] [id number] [address] [place] [address], [place] [address] Jul, [facility] [address] [id number] [address] [place] [address], [place] [address] Jul, [facility] [address] [id number] [address] [place] [address], [place] [address] Jul, [facility] [address] [id number] [address] [place] [address] Jun, [facility] [address] [id number] [address] [place] [address] Jul, [facility] [address] [id number] [address] [place] [address] Jul, [facility] [address] [id number] [address] [place] [address] Jul, [facility] [address] [id number] [address] [place] [address] Jul, [facility] [address] [id number] [address] [place] [address] Jul, [facility] [address] [id number] [address] [place] [address] Jul, [facility] [address] [id number] [address] [place] [address] Jan, [facility] [address] [id number] [address] [place] [address] Sep, [facility] [address] [id number] [address] [place] [address] Sep, IMMUNIZATIONS No Known Immunizations SOCIAL HISTORY Never Assessed REASON FOR VISIT PLAN OF CARE VITAL SIGNS MEDICATIONS Unknown Medications RESULTS No Results PROCEDURES Procedure Date Ordered Result Body Site US EXAM, PELVIC, COMPLETE Aug 04, 2014 INSTRUCTIONS MEDICATIONS ADMINISTERED No Known Medications [...]
--- OUTSIDE RECORDS SUMMARY | 2020-01-27 10:16 | XMS REPORT ---
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 Name Role Phone ROBERT Anthony Unavailable PROBLEMS Type Condition ICD9-CM Code [id number] Code Onset Dates Condition S tatus SNOMED Code Problem Hypertension I10 Active 4051468 3 Problem Generalized anxiety disorder F41.1 A ctive 779605862 Problem History of colon polyps Z86.010 Active 566655928 Problem History of diverticulitis Z87.19 Acti ve 918425502582581 Problem Family history of diabetes mellitus Z83.3 Active 785445165 Problem Excessive and frequent menstruation with irregular cycle N92.1 Active 828764760 Problem Hot flashes N95.1 Active 01132306 8 Problem Gastroesophageal reflux disease with esophagitis K 21.0 Active 116855779 Problem History of ovarian cyst Z87.42 Active 27251581 Problem Diverticulitis K57.92 Active 03763 6006 Problem Dense breast tissue R92.2 Active 713683056 Problem Perimenopausal N95.1 Active 76192 3636968441 Problem Mitral valve prolapse I34.1 Active 704502717 Problem Abnormal uterine bleeding (AUB) N93.9 Active 56990016241921 Problem Tachycardia R00.0 Active 7481072 ALLERGIES No Information ENCOUNTERS Encounter Location Date Diagnosis [facility] [address] [facility] [id number] [address] [place] [phone] Apr, [facility] [address] [facility] [id number] [address] [place] [address] Mar, [facility] [address] [facility] [id number] [address] [place] [address] Mar, [facility] [address] [facility] [id number] [address] [place] [address] Feb, Generalized anxiety disorder F41.1 [facility] [address] [id number] [address] [place] [address] Feb, Generalized anxiety disorder F41.1 and Bereavement Z63.4 [facility] [address] [id number] [address] [place] [address] Feb, Generalized anxiety disorder F41.1 [facility] [address] [facility] [id number] [address] [place] [address] Feb, Generalized anxiety disorder F41.1 and Bereavement Z63.4 [facility] [address] [id number] [address] [place] [address] Jan, [facility] [address] [facility] [id number] [address] [place] [address] Jan, Breast cancer screening by trenton crenshaw Z12.31 [facility] [address] [facility] [id number] [address] [place] [address] Jan, Generalized anxiety disorder F41.1 and Bereavement Z63.4 [facility] [address] [id number] [address] [place] [phone] Jan, [facility] [address] [facility] [id number] [address] [place] [address] December, Generalized anxiety disorder F41.1 and Bereavement Z63.4 [facility] [address] [facility] [id number] [address] [place] [address] December, Diverticulitis K57.92 ; Dysu nick R30.0 ; Other constipation K59.09 and Lower abdominal pain R10.30 [facility] [address] [facility] [id number] [address] [place] [address] Nov, Diverticulitis K57.92 [facility] [address] [facility] [id number] [address] [place] [address] Nov, Generalized anxiety disorder F41.1 and Bereavement Z63.4 [facility] [address] [facility] [id number] [address] [place] [address] Nov, Generalized anxiety disorder F41.1 and Bereavement Z63.4 [facility] [address] [facility] [id number] [address] [place] [address] Nov, Diverticulitis K57.92 [facility] [address] [facility] [id number] [address] [place] [address] Oct, Diverticulitis K57.92 [facility] [address] [facility] [id number] [address] [place] [address] Oct, Diverticulitis K57.92 [place] [address] [facility] [id number] [address] [place] [address] Oct, Generalized anxiety disorder F41.1 [facility] [address] [facility] [id number] [address] [place] [address] Oct, Right lower quadrant abdomin al pain R10.31 and Diverticulitis K57.92 [place] [address] [facility] [id number] [address] [place] [address] Sep, Generalized anxiety disorder F41.1 and Bereavement Z63.4 [place] [address] [facility] [id number] [address] [place] [address] Aug, [place] [address] [facility] [id number] [address] [place] [address] Aug, Generalized anxiety disorder F41.1 and Bereavement Z63.4 [facility] [address] [id number] [place] [address] Aug, Caries K02.9 [facility] [address] [facility] [id number] [address] [place] [address] Jul, Generalized anxiety disorder F41.1 and Bereavement Z63.4 [place] [address] [facility] [id number] [address] [place] [address] Jul, Other acute gastritis withou t hemorrhage K29.00 ; Generalized anxiety disorder F41.1 ; Tachycardia R00.0 and Essential hypertension I10 [facility] [address] [facility] [id number] [address] [place] [address] 05 Jul, 2018 Generalized anxiety disorder F41.1 and Bereavement Z63.4 [facility] [address] [facility] [id number] [address] [place] [address] Jun, Generalized anxiety disorder F41.1 and Bereavement Z63.4 [facility] [address] [facility] [id number] [address] [place] [address] Jun, Generalized anxiety disorder F41.1 and Bereavement Z63.4 [facility] [address] [facility] [id number] [place] [address] 02 Jun, 2018 Dental examination Z01.20 [facility] [address] [facility] [id number] [address] [place] [address] May, Generalized anxiety disorder F41.1 and Bereavement Z63.4 [facility] [address] [facility] [id number] [address] [place] [address] 08 May, 2018 Encounter for immunization Z 23 [facility] [address] [facility] [id number] [address] [place] [address] 08 May, 2018 Generalized anxiety disorder F41.1 and Bereavement Z63.4 [facility] [address] [facility] [id number] [address] [place] [address] May, [facility] [address] [facility] [id number] [address] [place] [address] 24 Apr, 2018 Generalized anxiety disorder F41.1 and Bereavement Z63.4 [facility] [address] [facility] [id number] [address] [place] [address] 17 Apr, 2018 [facility] [address] [facility] [id number] [address] [place] [address] 13 Apr, 2018 Diverticulitis K57.92 [facility] [address] [id number] [address] [place] [address] Apr, Generalized anxiety disorder F41.1 and Bereavement Z63.4 [facility] [address] [facility] [id number] [address] [place] [address] Mar, [facility] [address] [facility] [id number] [address] [place] [address] Mar, Diverticulitis K57.92 [facility] [address] [id number] [address] [place] [address] Mar, Generalized anxiety disorder F41.1 and Bereavement Z63.4 [facility] [address] [facility] [id number] [address] [place] [address] Mar, Hypertension I10 [facility] [address] [facility] [id number] [address] [place] [address] Mar, Generalized anxiety disorder F41.1 and Bereavement Z63.4 [facility] [address] [facility] [id number] [address] [place] [address] Feb, Generalized anxiety disorder F41.1 and Bereavement Z63.4 [facility] [address] [facility] [id number] [address] [place] [address] Feb, [facility] [address] [facility] [id number] [address] [place] [address] Feb, Generalized anxiety disorder F41.1 and Bereavement Z63.4 [facility] [address] [facility] [id number] [address] [place] [address] Feb, Generalized anxiety disorder F41.1 and Bereavement Z63.4 [facility] [address] [facility] [id number] [address] [place] [address] Jan, Hypertension I10 and Acute n on-recurrent maxillary sinusitis J01.00 [facility] [address] [facility] [id number] [address] [place] [address] December, [facility] [address] [id number] [address] [place] [address] December, Hypertension I10 [facility] [address] [id number] [address] [place] [address] December, Generalized anxiety disorder F41.1 [facility] [address] [id number] [place] [address] 16 Oct, 2017 Encounter for dental examina tion Z01.20 [facility] [address] [id number] [address] [place] [address] 06 Oct, 2017 Encounter for dental examina tion Z01.20 [facility] [address] [id number] [address] [place] [address] 02 Oct, 2017 Dental examination Z01.20 [facility] [address] [id number] [address] [place] [address] Oct, Generalized anxiety disorder F41.1 [facility] [address] [id number] [address] [place] [address] Aug, Dental examination Z01.20 [facility] [address] [id number] [address] [place] [address] Aug, Generalized anxiety disorder F41.1 [facility] [address] [id number] [address] [place] [address] Aug, [facility] [address] [id number] [address] [place] [address] Aug, Encounter for dental examina tion Z01.20 [facility] [address] [id number] [address] [place] [address] Aug, Subacute maxillary sinusitis J01.00 [facility] [address] [id number] [address] [place] [address] Jul, Dental examination Z01.20 [facility] [address] [id number] [address] [place] [address] Jul, Generalized anxiety disorder F41.1 [facility] [address] [id number] [address] [place] [address] Jul, Diverticulitis K57.92 [facility] [address] [id number] [address] [place] [address] 28 Jun, 2017 Encounter for immunization Z 23 [facility] [address] [id number] [address] [place] [address] 22 Jun, 2017 Dental examination Z01.20 [facility] [address] [id number] [address] [place] [address] 14 Jun, 2017 Generalized anxiety disorder F41.1 [facility] [address] [id number] [address] [place] [address] 07 Jun, 2017 Dental examination Z01.20 [facility] [address] [id number] [address] [place] [address] May, [facility] [address] [id number] [address] [place] [id number] May, Dental examination Z01.20 [facility] [address] [id number] [address] [place] [address] [id number] May, Dental examination Z01.20 [facility] [address] [id number] [address] [place] [address] May, Dental examination Z01.20 [facility] [address] [id number] [address] [place] [address] May, [facility] [address] [id number] [address] [place] [phone] May, Generalized anxiety disorder F41.1 [facility] [address] [id number] [address] [place] [address] 05 May, 2017 Localized edema R60.0 ; Yeas t vaginitis B37.3 and Gastroesophageal reflux disease with esophagitis K21.0 [facility] [address] [id number] [address] [place] [id number] 26 Apr, 2017 Dental examination Z01.20 [facility] [address] [id number] [place] [address] 21 Apr, 2017 Dental examination Z01.20 [facility] [address] [id number] [address] [place] [address] 05 Apr, 2017 Dental examination Z01.20 [facility] [address] [id number] [address] [place] [address] Mar, Dyspepsia R10.13 [facility] [address] [id number] [address] [place] [address] Mar, Generalized anxiety disorder F41.1 [facility] [address] [id number] [address] [place] [address] Mar, Encounter for dental examina tion Z01.20 [facility] [address] [id number] [address] [place] [address] [id number] Mar, [facility] [address] [id number] [address] [place] [address] [id number] Mar, Dental examination Z01.20 [facility] [address] [id number] [address] [place] [address] Feb, Hypertension I10 and Tachyca rdia R00.0 [facility] [address] [id number] [address] [place] [address] Feb, [facility] [address] [id number] [address] [place] [address] Feb, Generalized anxiety disorder F41.1 [facility] [address] [id number] [address] [place] [address] [id number] Feb, Dental examination Z01.20 [facility] [address] [id number] [address] [place] [address] Jan, Generalized anxiety disorder F41.1 [facility] [address] [id number] [address] [place] [address] December, Generalized anxiety disorder F41.1 [facility] [address] [id number] [address] [place] [address] [id number] December, Encounter for dental examina tion Z01.20 [facility] [address] [id number] [address] [place] [address] Nov, [facility] [address] [id number] [address] [place] [phone] Nov, [facility] [address] [id number] [address] [place] [address] Nov, Generalized anxiety disorder F41.1 [facility] [address] [facility] [id number] [address] [place] [phone] Oct, [facility] [address] [id number] [address] [place] [address] [id number] Oct, Dental examination Z01.20 [facility] [address] [facility] [id number] [address] [place] [address] Oct, Vaginal dryness N89.8 [facility] [address] [facility] [id number] [address] [place] [address] Oct, Pseudoseizures F44.5 [facility] [address] [facility] [id number] [address] [place] [address] Oct, Generalized anxiety disorder F41.1 [facility] [address] [facility] [id number] [address] [place] [address] Sep, Abnormal uterine bleeding (A UB) N93.9 ; Vaginal dryness N89.8 and Screening breast examination Z12.39 [facility] [address] [facility] [id number] [address] [place] [address] Sep, Dental examination Z01.20 [facility] [address] [facility] [id number] [address] [place] [address] Sep, Generalized anxiety disorder F41.1 [facility] [address] [facility] [id number] [address] [place] [address] 06 Sep, 2016 Unspecified ovarian cyst, ri ght side N83.201 ; Unspecified ovarian cyst, left side N83.202 ; Yeast infection of the vagina B37.3 ; Mitral valve prolapse I34.1 and Hypertension I10 [facility] [address] [facility] [id number] [address] [place] [address] Aug, Generalized anxiety disorder F41.1 [facility] [address] [facility] [id number] [address] [place] [phone] Jul, [facility] [address] [facility] [id number] [address] [place] [address] Jul, Generalized anxiety disorder F41.1 [facility] [address] [facility] [id number] [address] [place] [address] Jun, Generalized anxiety disorder F41.1 [facility] [address] [place] [id number] [address] [place] [phone] May, Encounter for immunization Z 23 [facility] [address] [facility] [id number] [address] [place] [address] 17 May, 2016 Generalized anxiety disorder F41.1 and Depressive disorder, not elsewhere classified F32.9 [facility] [address] [facility] [id number] [address] [place] [address] 28 Apr, 2016 Hypertension I10 [facility] [address] [facility] [id number] [address] [place] [address] 22 Apr, 2016 Cervicalgia M54.2 [facility] [address] [facility] [id number] [address] [place] [address] 12 Apr, 2016 Cervicalgia M54.2 [facility] [address] [facility] [id number] [address] [place] [address] Mar, Generalized anxiety disorder F41.1 and Depressive disorder, not elsewhere classified F32.9 [facility] [address] [id number] [address] [place] [address] [id number] 14 Feb, 2016 Visit for dental examination Z01.20 [facility] [address] [facility] [id number] [address] [place] [address] 11 Feb, 2016 Pseudoseizures F44.5 ; Migra ine without status migrainosus, not intractable, unspecified migraine type G43.909 and Essential hypertension I10 [facility] [address] [id number] [address] [place] [address] [id number] 06 Feb, 2016 Dental examination Z01.20 [facility] [address] [facility] [id number] [address] [place] [phone] 05 Feb, 2016 Generalized anxiety disorder F41.1 and Depressive disorder, not elsewhere classified F32.9 [facility] [address] [facility] [id number] [address] [place] [address] 27 Jan, 2016 Tachycardia R00.0 [facility] [address] [facility] [id number] [address] [place] [address] December, Eustachian tube dysfunction, bilateral H69.83 [facility] [address] [facility] [id number] [address] [place] [phone] December, Generalized anxiety disorder F41.1 and Depressive disorder, not elsewhere classified F32.9 [facility] [address] [facility] [id number] [address] [place] [phone] Nov, [facility] [address] [facility] [id number] [address] [place] [address] 28 Nov, 2015 [facility] [address] [facility] [id number] [address] [place] [address] Nov, Hypertension I10 ; Onychomyc osis B35.1 [...] cyst of left ovary N83.29 [place] [address] [place] [id number] [address] [place] [address] 14 Nov, 2015 Sinusitis J32.9 [place] [address] [place] [id number] [address] [place] [address] Oct, Complex cyst of left ovary N 83.29 [place] [address] [place] [id number] [address] [place] [address] Oct, Onychomycosis B35.1 [facility] [address] [place] [id number] [address] [place] [address] [id number] Oct, Dental examination Z01.20 [place] [address] [address] 09 Oct, 2015 Well woman exam Z01.419 [...] History of colon polyps Z86.010 [place] [id number] [place] [address] Oct, Generalized anxiety disorder F41.1 and Depressive disorder, not elsewhere classified F32.9 [place] [address] [place] [id number] [address] [place] [address] Sep, Hypertension I10 and Onychom ycosis B35.1 [place] [address] [place] [id number] [address] [place] [address] 16 Sep, 2015 Skin tags, multiple acquired L91.8 [place] [address] [place] [id number] [address] [place] [phone] Aug, [facility] [address] [id number] [address] [place] [phone] Aug, [facility] [address] [id number] [address] [place] [id number] Aug, [facility] [address] [id number] [address] [place] [id number] Aug, Generalized anxiety disorder F41.1 and Depressive disorder, not elsewhere classified F32.9 [facility] [address] [id number] [address] [place] [phone] Jul, Skin lesion L98.9 [facility] [address] [id number] [address] [place] [id number] Jun, Generalized anxiety disorder F41.1 and Depressive disorder, not elsewhere classified F32.9 [facility] [address] [id number] [address] [place] [id number] Jun, [facility] [address] [id number] [address] [place] [id number] Jun, Generalized anxiety disorder F41.1 [facility] [address] [facility] [id number] [address] [place] [phone] May, Encounter for immunization Z 23 and Right shoulder pain M25.511 [facility] [address] [id number] [address] [place] [id number] Apr, [facility] [address] [facility] [id number] [address] [place] [address] 14 Apr, 2015 Generalized anxiety disorder 300.02 and Depressive disorder, not elsewhere classified 311 [facility] [address] [id number] [address] [place] [id number] Mar, Dental examination V72.2 [facility] [address] [id number] [address] [place] [address] Mar, Generalized anxiety disorder 300.02 and Depressive disorder, not elsewhere classified 311 [facility] [address] [id number] [address] [place] [address] Mar, Depression, major, recurrent , 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.35 and 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 [facility] [address] [facility] [id number] [address] [place] [address] Feb, Generalized anxiety disorder 300.02 and Depressive disorder, not elsewhere classified 311 [facility] [address] [id number] [address] [place] [id number] 07 Feb, 2015 Dental examination V72.2 [facility] [address] [facility] [id number] [address] [place] [address] 09 Jan, 2015 Generalized anxiety disorder 300.02 and Depressive disorder, not elsewhere classified 311 [facility] [address] [facility] [id number] [address] [place] [address] Jan, [facility] [address] [facility] [id number] [address] [place] [address] December, Generalized anxiety disorder 300.02 and Depressive disorder, not elsewhere classified 311 [facility] [address] [facility] [id number] [address] [place] [address] December, Major depressive disorder, r ecurrent, unspecified 296.30 and Panic disorder with agoraphobia 300.21 [facility] [address] [facility] [id number] [address] [place] [address] Nov, [facility] [address] [facility] [id number] [address] [place] [address] Nov, [facility] [address] [facility] [id number] [address] [place] [address] Oct, [facility] [address] [facility] [id number] [address] [place] [address] Oct, [facility] [address] [facility] [id number] [address] [place] [phone] Oct, [facility] [address] [place] [id number] [address] [place] [phone] Oct, [facility] [address] [id number] [address] [place] [address], [place] [address] Sep, 2014 [facility] [address] [id number] [address] [place] [address], [place] [address] Sep, 2014 [facility] [address] [id number] [address] [place] [address], [place] [address] Sep, 2014 [facility] [address] [id number] [address] [place] [address], [place] [address] Sep, 2014 [facility] [address] [id number] [address] [place] [address], [place] [address] Sep, 2014 [facility] [address] [id number] [address] [place] [address], [place] [address] Sep, 2014 [facility] [address] [id number] [address] [place] [address], [place] [address] Sep, 2014 [facility] [address] [id number] [address] [place] [address], [place] [address] Sep, 2014 [facility] [address] [id number] [address] [place] [address], [place] [address] Sep, 2014 [facility] [address] [id number] [address] [place] [address], [place] [address] Sep, [facility] [address] [id number] [address] [place] [address], [place] [address] Aug, [facility] [address] [id number] [address] [place] [address] Aug, [facility] [address] [id number] [address] [place] [address], [place] [address] Jul, [facility] [address] [id number] [address] [place] [address], [place] [address] Jul, [facility] [address] [id number] [address] [place] [address], [place] [address] Jul, [facility] [address] [id number] [address] [place] [address], [place] [address] Jul, [facility] [address] [id number] [address] [place] [address], [place] [address] Jul, [facility] [address] [id number] [address] [place] [address], [place] [address] Jul, [facility] [address] [id number] [address] [place] [address], [place] [address] Jul, [facility] [address] [id number] [address] [place] [address], [place] [address] Jul, [facility] [address] [id number] [address] [place] [address], [place] [address] Jul, [facility] [address] [id number] [address] [place] [address], [place] [address] Jul, [facility] [address] [id number] [address] [place] [address], [place] [address] Jul, [facility] [address] [id number] [address] [place] [address], [place] [address] Jul, [facility] [address] [id number] [address] [place] [address], [place] [address] Jun, [facility] [address] [id number] [address] [place] [address], [place] [address] Jun, [facility] [address] [id number] [address] [place] [address], [place] [address] May, [facility] [address] [id number] [address] [place] [address], [place] [address] May, [facility] [address] [id number] [address] [place] [address], [place] [address] May, [facility] [address] [id number] [address] [place] [address], [place] [address] May, [facility] [address] [id number] [address] [place] [address], [place] [address] May, [facility] [address] [id number] [address] [place] [address], [place] [address] May, [facility] [address] [id number] [address] [place] [address], [place] [address] May, [facility] [address] [id number] [address] [place] [address], [place] [address] May, 2013 [facility] [address] [id number] [address] [place] [address], [place] [address] May, [facility] [address] [id number] [address] [place] [address], [place] [address] May, [facility] [address] [id number] [address] [place] [address], [place] [address] May, [facility] [address] [id number] [address] [place] [address], [place] [address] May, [facility] [address] [id number] [address] [place] [address], [place] [address] 30 Apr, 2013 [facility] [address] [id number] [address] [place] [address], [place] [address] 30 Apr, 2014 [facility] [address] [id number] [address] [place] [address], [place] [address] 29 Apr, 2013 [facility] [address] [id number] [address] [place] [address], [place] [address] 29 Apr, 2013 [facility] [address] [id number] [address] [place] [address], [place] [address] Apr, 2013 [facility] [address] [id number] [address] [place] [address], [place] [address] Apr, [facility] [address] [id number] [address] [place] [address], [place] [address] Feb, [facility] [address] [id number] [address] [place] [address], [place] [address] Feb, [facility] [address] [id number] [address] [place] [address], [place] [address] Feb, [facility] [address] [id number] [address] [place] [address], [place] [address] Feb, [facility] [address] [id number] [address] [place] [address], [place] [address] Feb, [facility] [address] [id number] [address] [place] [address], [place] [address] Feb, [facility] [address] [id number] [address] [place] [address], [place] [address] Jan, [facility] [address] [id number] [address] [place] [address], [place] [address] Jan, [facility] [address] [id number] [address] [place] [address], [place] [address] Jan, [facility] [address] [id number] [address] [place] [address], [place] [address] Jan, [facility] [address] [id number] [address] [place] [address], [place] [address] Jan, [facility] [address] [id number] [address] [place] [address], [place] [address] Jan, [facility] [address] [id number] [address] [place] [address], [place] [address] Jan, [facility] [address] [id number] [address] [place] [address], [place] [address] Jan, [facility] [address] [id number] [address] [place] [address], [place] [address] December, [facility] [address] [id number] [address] [place] [address], [place] [address] December, [facility] [address] [id number] [address] [place] [address], [place] [address] December, [facility] [address] [id number] [address] [place] [address], [place] [address] December, [facility] [address] [id number] [address] [place] [address], [place] [address] Nov, [facility] [address] [id number] [address] [place] [address], [place] [address] Nov, [facility] [address] [id number] [address] [place] [address], [place] [address] Nov, [facility] [address] [id number] [address] [place] [address], [place] [address] Nov, [facility] [address] [id number] [address] [place] [address], [place] [address] Nov, [facility] [address] [id number] [address] [place] [address], [place] [address] Nov, [facility] [address] [id number] [address] [place] [address], [place] [address] Nov, [facility] [address] [id number] [address] [place] [address], [place] [address] Nov, [facility] [address] [id number] [address] [place] [address], [place] [address] Oct, [facility] [address] [id number] [address] [place] [address], [place] [address] Oct, [facility] [address] [id number] [address] [place] [address], [place] [address] Sep, [facility] [address] [id number] [address] [place] [address], [place] [address] Sep, [facility] [address] [id number] [address] [place] [address], [place] [id number] Sep, [facility] [address] [id number] [address] [place] [address], [place] [address] Sep, [facility] [address] [id number] [address] [place] [address], [place] [address] Sep, [facility] [address] [id number] [address] [place] [address], [place] [address] Sep, [facility] [address] [id number] [address] [place] [address], [place] [address] Aug, [facility] [address] [id number] [address] [place] [address], [place] [address] Aug, [facility] [address] [id number] [address] [place] [address], [place] [address] Aug, [facility] [address] [id number] [address] [place] [address], [place] [address] Aug, [facility] [address] [id number] [address] [place] [address], [place] [address] Jul, [facility] [address] [id number] [address] [place] [address], [place] [address] Jul, [facility] [address] [id number] [address] [place] [address], [place] [address] Jul, [facility] [address] [id number] [address] [place] [address], [place] [address] Jul, [facility] [address] [id number] [address] [place] [address], [place] [address] Jun, [facility] [address] [id number] [address] [place] [address], [place] [address] Jun, [facility] [address] [id number] [address] [place] [address], [place] [address] May, [facility] [address] [id number] [address] [place] [address] 24 May, 2013 [facility] [address] [id number] [address] [place] [address], [place] [address] May, [facility] [address] [id number] [address] [place] [address] May, [facility] [address] [id number] [address] [place] [address], [place] [address] May, [facility] [address] [id number] [address] [place] [address], [place] [address] 17 Apr, 2013 [facility] [address] [id number] [address] [place] [address], [place] [address] 10 Apr, 2013 [facility] [address] [id number] [address] [place] [address], [place] [address] Mar, [facility] [address] [id number] [address] [place] [address], [place] [address] Mar, [facility] [address] [id number] [address] [place] [address], [place] [address] Mar, [facility] [address] [id number] [address] [place] [address], [place] [address] Mar, [facility] [address] [id number] [address] [place] [address], [place] [address] Feb, [facility] [address] [id number] [address] [place] [address], [place] [address] Feb, [facility] [address] [id number] [address] [place] [address], [place] [address] Feb, [facility] [address] [id number] [address] [place] [address], [place] [address] Feb, [facility] [address] [id number] [address] [place] [address], [place] [address] Feb, [facility] [address] [id number] [address] [place] [address], [place] [address] Jan, [facility] [address] [id number] [address] [place] [address], [place] [address] Jan, [facility] [address] [id number] [address] [place] [address], [place] [address] 14 Jan, 2013 [facility] [address] [id number] [address] [place] [address], [place] [address] Jan, [facility] [address] [id number] [address] [place] [address], [place] [address] Jan, [facility] [address] [id number] [address] [place] [address], [place] [address] December, [facility] [address] [id number] [address] [place] [address], [place] [address] December, [facility] [address] [id number] [address] [place] [address], [place] [address] Nov, [facility] [address] [id number] [address] [place] [address], [place] [address] Nov, [facility] [address] [id number] [address] [place] [address], [place] [address] Oct, [facility] [address] [id number] [address] [place] [address], [place] [address] Oct, [facility] [address] [id number] [address] [place] [address], [place] [address] Oct, [facility] [address] [id number] [address] [place] [address], [place] [address] Sep, [facility] [address] [id number] [address] [place] [address], [place] [address] Aug, [facility] [address] [id number] [address] [place] [address], [place] [address] Aug, [facility] [address] [id number] [address] [place] [address], [place] [address] Aug, [facility] [address] [id number] [address] [place] [address], [place] [address] Aug, [facility] [address] [id number] [address] [place] [address], [place] [address] Jul, [facility] [address] [id number] [address] [place] [address], [place] [address] Jul, [facility] [address] [id number] [address] [place] [address], [place] [address] Jul, [facility] [address] [id number] [address] [place] [address] Jul, [facility] [address] [id number] [address] [place] [address], [place] [address] Jul, [facility] [address] [id number] [address] [place] [address] Jul, [facility] [address] [id number] [address] [place] [address], [place] [address] Jul, [facility] [address] [id number] [address] [place] [address] Jul, [facility] [address] [id number] [address] [place] [address], [place] [address] Jun, [facility] [address] [id number] [address] [place] [address] Jun, [facility] [address] [id number] [address] [place] [address] Jun, [facility] [address] [id number] [address] [place] [address] Jun, [facility] [address] [id number] [address] [place] [address] Jun, [facility] [address] [id number] [address] [place] [address] Jun, [facility] [address] [id number] [address] [place] [id number] May, [facility] [address] [id number] [address] [place] [address] May, [facility] [address] [id number] [address] [place] [address] May, [facility] [address] [id number] [address] [place] [address] May, [facility] [address] [id number] [address] [place] [address], [place] [address] Apr, [facility] [address] [id number] [address] [place] [address], [place] [address] 06 Apr, 2012 [facility] [address] [id number] [address] [place] [address], [place] [address] 08 Mar, 2012 [facility] [address] [id number] [address] [place] [address], [place] [address] 28 Jan, 2012 [facility] [address] [id number] [address] [place] [address], [place] [address] 20 Jan, 2012 [facility] [address] [id number] [address] [place] [address], [place] [address] 16 Jan, 2012 [facility] [address] [id number] [address] [place] [address], [place] [address] 15 Jan, 2012 [facility] [address] [id number] [address] [place] [address], [place] [address] 14 Jan, 2012 [facility] [address] [id number] [address] [place] [address], [place] [address] 14 Jan, 2012 [facility] [address] [id number] [address] [place] [address], [place] [address] 07 Jan, 2012 [facility] [address] [id number] [address] [place] [address], [place] [address] December, [facility] [address] [id number] [address] [place] [address], [place] [address] December, [facility] [address] [id number] [address] [place] [address], [place] [address] December, [facility] [address] [id number] [address] [place] [address], [place] [address] December, [facility] [address] [id number] [address] [place] [address], [place] [address] Nov, [facility] [address] [id number] [address] [place] [address], [place] [address] Nov, [facility] [address] [id number] [address] [place] [address], [place] [address] Oct, [facility] [address] [id number] [address] [place] [address], [place] [address] 28 Oct, 2011 [facility] [address] [id number] [address] [place] [address], [place] [address] Oct, [facility] [address] [id number] [address] [place] [address], [place] [address] Sep, [facility] [address] [id number] [address] [place] [address], [place] [address] Sep, [facility] [address] [id number] [address] [place] [address], [place] [address] Sep, [facility] [address] [id number] [address] [place] [address], [place] [address] Aug, [facility] [address] [id number] [address] [place] [address], [place] [address] Aug, [facility] [address] [id number] [address] [place] [address], [place] [address] Aug, [facility] [address] [id number] [address] [place] [address], [place] [address] Aug, [facility] [address] [id number] [address] [place] [address], [place] [address] Aug, [facility] [address] [id number] [address] [place] [address], [place] [address] Aug, [facility] [address] [id number] [address] [place] [address], [place] [address] Aug, [facility] [address] [id number] [address] [place] [address], [place] [address] Jul, [facility] [address] [id number] [address] [place] [address], [place] [address] Jul, [facility] [address] [id number] [address] [place] [address], [place] [address] Jun, [facility] [address] [id number] [address] [place] [address], [place] [address] 28 Jun, 2011 [facility] [address] [id number] [address] [place] [address], [place] [address] 17 Jun, 2011 [facility] [address] [id number] [address] [place] [address], [place] [address] 15 Jun, 2011 [facility] [address] [id number] [address] [place] [address], [place] [address] 14 Jun, 2011 [facility] [address] [id number] [address] [place] [address], [place] [address] 14 Jun, 2011 [facility] [address] [id number] [address] [place] [address], [place] [address] 07 Jun, 2011 [facility] [address] [id number] [address] [place] [address], [place] [address] Jun, [facility] [address] [id number] [address] [place] [address], [place] [address] Jun, [facility] [address] [id number] [address] [place] [address], [place] [address] Jun, [facility] [address] [id number] [address] [place] [address], [place] [address] 31 May, 2011 [facility] [address] [id number] [address] [place] [address], [place] [address] 31 May, 2011 [facility] [address] [id number] [address] [place] [address], [place] [address] 25 May, 2011 [facility] [address] [id number] [address] [place] [address], [place] [address] 24 May, 2011 [facility] [address] [id number] [address] [place] [address], [place] [address] 18 May, 2011 [facility] [address] [id number] [address] [place] [address], [place] [address] 13 May, 2011 [facility] [address] [id number] [address] [place] [address] 13 Feb, 2011 [facility] [address] [id number] [address] [place] [address] December, [facility] [address] [id number] [address] [place] [id number] Jul, [facility] [address] [id number] [address] [place] [id number] Jul, [facility] [address] [id number] [address] [place] [id number] Jul, [facility] [address] [id number] [address] [place] [phone] Jul, [facility] [address] [id number] [address] [place] [id number] Jun, [facility] [address] [id number] [address] [place] [phone] Jul, [facility] [address] [id number] [address] [place] [phone] Jul, [facility] [address] [id number] [address] [place] [id number] Jul, [facility] [address] [id number] [address] [place] [id number] Jul, [facility] [address] [id number] [address] [place] [id number] Jul, [facility] [address] [id number] [address] [place] [phone] Jul, [facility] [address] [id number] [address] [place] [id number] 15 Jan, 2009 [facility] [address] [id number] [address] [place] [id number] 16 Sep, 2008 [facility] [address] [id number] [address] [place] [id number] 11 Sep, 2008 IMMUNIZATIONS No Known Immunizations SOCIAL HISTORY Never Assessed REASON FOR VISIT PLAN OF CARE VITAL SIGNS Height 66 in 2014-03-22 Weight 204 lbs 2014-03-22 Temperature 100 degrees Fahrenheit 2014-03-22 Heart Rate 80 bpm 2014-03-22 Respiratory Rate 28 2014-03-22 Blood pressure systolic 124 mmHg 2014-03-22 Blood pressure diastolic 88 mmHg 2014-03-22 MEDICATIONS Unknown Medications RESULTS No Results PROCEDURES [...]
--- OUTSIDE RECORDS SUMMARY | 2020-01-27 10:16 | XMS REPORT ---
Author Author Silvia WILKINS Organization [facility] Address [address] [place] [address] Care Team Providers Care Humanities Instructor Name Role Phone LETTY WILKINS Unavailable PROBLEMS Type Condition ICD9-CM Code QWZ46-GY Code Onset Dates Condition S tatus SNOMED Code Problem Hypertension I10 Active 4027226 3 Problem Generalized anxiety disorder F41.1 A ctive 354145035 Problem History of colon polyps Z86.010 Active 539912741 Problem History of diverticulitis Z87.19 Acti ve [id number] Problem Family history of diabetes mellitus Z83.3 Active 946455589 Problem Excessive and frequent menstruation with irregular cycle N92.1 Active 944108876 Problem Hot flashes N95.1 Active 45147897 8 Problem Gastroesophageal reflux disease with esophagitis K 21.0 Active 060117996 Problem History of ovarian cyst Z87.42 Active 52022677 Problem Diverticulitis K57.92 Active 25258 6006 Problem Dense breast tissue R92.2 Active 296858640 Problem Perimenopausal N95.1 Active 98337 7653565519 Problem Mitral valve prolapse I34.1 Active 011651771 Problem Abnormal uterine bleeding (AUB) N93.9 Active 80733834470075 Problem Tachycardia R00.0 Active 8423588 ALLERGIES No Information ENCOUNTERS Encounter Location Date Diagnosis [facility] [address] [facility] [id number] [address] [place] [phone] Apr, [facility] [address] [facility] [id number] [address] [place] [phone] Mar, [facility] [address] [facility] [id number] [address] [place] [phone] Mar, [facility] [address] [facility] [id number] [address] [place] [phone] Mar, [facility] [address] [id number] [address] [place] [phone] Mar, [facility] [address] [id number] [address] [place] [phone] Mar, [facility] [address] [id number] [address] [place] [phone] Mar, Tachycardia R00.0 and Essent ial hypertension I10 [facility] [address] [id number] [address] [place] [phone] Feb, Generalized anxiety disorder F41.1 [facility] [address] [id number] [address] [place] [phone] Feb, Generalized anxiety disorder F41.1 and Bereavement Z63.4 [facility] [address] [facility] [id number] [address] [place] [phone] Feb, Generalized anxiety disorder F41.1 [facility] [address] [facility] [id number] [address] [place] [phone] Feb, Generalized anxiety disorder F41.1 and Bereavement Z63.4 [facility] [address] [id number] [address] [place] [phone] Jan, [facility] [address] [facility] [id number] [address] [place] [phone] Jan, Breast cancer screening by [facility]on crenshaw Z12.31 [facility] [address] [id number] [address] [place] [phone] Jan, Generalized anxiety disorder F41.1 and Bereavement Z63.4 [facility] [address] [id number] [address] [place] [phone] Jan, [facility] [address] [facility] [id number] [address] [place] [phone] December, Generalized anxiety disorder F41.1 and Bereavement Z63.4 [facility] [address] [id number] [address] [place] [address] December, Diverticulitis K57.92 ; Dysu nick R30.0 ; Other constipation K59.09 and Lower abdominal pain R10.30 [facility] [address] [facility] [id number] [address] [place] [address] Nov, Diverticulitis K57.92 [facility] [address] [facility] [id number] [address] [place] [phone] Nov, Generalized anxiety disorder F41.1 and Bereavement Z63.4 [facility] [address] [facility] [id number] [address] [place] [phone] Nov, Generalized anxiety disorder F41.1 and Bereavement Z63.4 [place] [address] [facility] [id number] [address] [place] [address] Nov, Diverticulitis K57.92 [facility] [address] [facility] [id number] [address] [place] [id number] Oct, Diverticulitis K57.92 [facility] [address] [facility] [id number] [address] [place] [phone] Oct, Diverticulitis K57.92 [facility] [address] [facility] [id number] [address] [place] [phone] Oct, Generalized anxiety disorder F41.1 [facility] [address] [facility] [id number] [address] [place] [phone] Oct, Right lower quadrant abdomin al pain R10.31 and Diverticulitis K57.92 [facility] [address] [facility] [id number] [address] [place] [phone] Sep, Generalized anxiety disorder F41.1 and Bereavement Z63.4 [facility] [address] [facility] [id number] [address] [place] [phone] Aug, [facility] [address] [facility] [id number] [address] [place] [phone] Aug, Generalized anxiety disorder F41.1 and Bereavement Z63.4 [facility] [address] [id number] [place] [address] 11 Aug, 2018 Caries K02.9 [facility] [address] [facility] [id number] [address] [place] [phone] 17 Jul, 2018 Generalized anxiety disorder F41.1 and Bereavement Z63.4 [facility] [address] [facility] [id number] [address] [place] [phone] 05 Jul, 2018 Other acute gastritis withou t hemorrhage K29.00 ; Generalized anxiety disorder F41.1 ; Tachycardia R00.0 and Essential hypertension I10 [facility] [address] [facility] [id number] [address] [place] [id number] 05 Jul, 2018 Generalized anxiety disorder F41.1 and Bereavement Z63.4 [facility] [address] [facility] [id number] [address] [place] [phone] Jun, Generalized anxiety disorder F41.1 and Bereavement Z63.4 [facility] [address] [facility] [id number] [address] [place] [phone] 06 Jun, 2018 Generalized anxiety disorder F41.1 and Bereavement Z63.4 [facility] [address] [id number] [address] [address] 02 Jun, 2018 Dental examination Z01.20 [facility] [address] [facility] [id number] [address] [place] [phone] May, Generalized anxiety disorder F41.1 and Bereavement Z63.4 [facility] [address] [facility] [id number] [address] [place] [phone] 08 May, 2018 Encounter for immunization Z 23 [facility] [address] [facility] [id number] [address] [place] [phone] 08 May, 2018 Generalized anxiety disorder F41.1 and Bereavement Z63.4 [facility] [address] [facility] [id number] [address] [place] [phone] May, [facility] [address] [id number] [address] [place] [phone] 24 Apr, 2018 Generalized anxiety disorder F41.1 and Bereavement Z63.4 [facility] [address] [id number] [address] [place] [address] 17 Apr, 2018 [facility] [address] [id number] [address] [place] [address] Apr, Diverticulitis K57.92 [facility] [address] [id number] [address] [place] [phone] Apr, Generalized anxiety disorder F41.1 and Bereavement Z63.4 [facility] [address] [id number] [address] [place] [phone] Mar, [facility] [address] [id number] [address] [place] [phone] Mar, Diverticulitis K57.92 [facility] [address] [id number] [address] [place] [id number] Mar, Generalized anxiety disorder F41.1 and Bereavement Z63.4 [facility] [address] [id number] [address] [place] [phone] Mar, Hypertension I10 [facility] [address] [id number] [address] [place] [id number] Mar, Generalized anxiety disorder F41.1 and Bereavement Z63.4 [facility] [address] [id number] [address] [place] [address] Feb, Generalized anxiety disorder F41.1 and Bereavement Z63.4 [facility] [address] [id number] [address] [place] [phone] Feb, [facility] [address] [facility] [id number] [address] [place] [phone] Feb, Generalized anxiety disorder F41.1 and Bereavement Z63.4 [facility] [address] [id number] [address] [place] [phone] Feb, Generalized anxiety disorder F41.1 and Bereavement Z63.4 [facility] [address] [id number] [address] [place] [phone] Jan, Hypertension I10 and Acute n on-recurrent maxillary sinusitis J01.00 [facility] [address] [id number] [address] [place] [address] December, [facility] [address] [id number] [address] [place] [phone] December, Hypertension I10 [facility] [address] [id number] [address] [place] [phone] December, Generalized anxiety disorder F41.1 [facility] [address] [id number] [address] [address] Oct, Encounter for dental examina tion Z01.20 [facility] [address] [id number] [address] [address] Oct, Encounter for dental examina tion Z01.20 [facility] [address] [id number] [address] [address] Oct, Dental examination Z01.20 [facility] [address] [id number] [address] [place] [address] Oct, Generalized anxiety disorder F41.1 [facility] [address] [id number] [address] [address] Aug, Dental examination Z01.20 [facility] [address] [id number] [address] [place] [phone] Aug, Generalized anxiety disorder F41.1 [facility] [address] [id number] [address] [place] [phone] Aug, [facility] [address] [id number] [address] [address] 09 Aug, 2017 Encounter for dental examina tion Z01.20 [facility] [address] [id number] [address] [place] [phone] 08 Aug, 2017 Subacute maxillary sinusitis J01.00 [facility] [address] [id number] [place] [address] 22 Jul, 2017 Dental examination Z01.20 [facility] [address] [id number] [address] [place] [id number] 19 Jul, 2017 Generalized anxiety disorder F41.1 [facility] [address] [id number] [address] [place] [phone] 11 Jul, 2017 Diverticulitis K57.92 [facility] [address] [id number] [address] [place] [phone] 28 Jun, 2017 Encounter for immunization Z 23 [facility] [address] [id number] [address] [place] [address] 22 Jun, 2017 Dental examination Z01.20 [facility] [address] [id number] [address] [place] [phone] 14 Jun, 2017 Generalized anxiety disorder F41.1 [facility] [address] [id number] [address] [place] [address] 07 Jun, 2017 Dental examination Z01.20 [facility] [address] [id number] [address] [place] [phone] May, [facility] [address] [id number] [address] [place] [id number] May, Dental examination Z01.20 [facility] [address] [id number] [address] [place] [id number] May, Dental examination Z01.20 [facility] [address] [id number] [address] [place] [phone] 13 May, 2017 Dental examination Z01.20 [facility] [address] [id number] [address] [place] [phone] May, [facility] [address] [id number] [address] [place] [phone] May, Generalized anxiety disorder F41.1 [facility] [address] [id number] [address] [place] [phone] May, Localized edema R60.0 ; Yeas t vaginitis B37.3 and Gastroesophageal reflux disease with esophagitis K21.0 [facility] [address] [id number] [address] [place] [id number] Apr, Dental examination Z01.20 [facility] [address] [id number] [address] [place] [address] Apr, Dental examination Z01.20 [facility] [address] [id number] [address] [place] [phone] 05 Apr, 2017 Dental examination Z01.20 [facility] [address] [id number] [address] [place] [address] Mar, Dyspepsia R10.13 [facility] [address] [id number] [address] [place] [phone] Mar, Generalized anxiety disorder F41.1 [facility] [address] [id number] [address] [place] [address] Mar, Encounter for dental examina tion Z01.20 [facility] [address] [id number] [address] [place] [id number] Mar, [facility] [address] [id number] [address] [place] [id number] Mar, Dental examination Z01.20 [facility] [address] [id number] [address] [place] [address] Feb, Hypertension I10 and Tachyca rdia R00.0 [facility] [address] [id number] [place] [address] Feb, [facility] [address] [id number] [address] [place] [phone] Feb, Generalized anxiety disorder F41.1 [facility] [address] [id number] [address] [place] [address] [id number] Feb, Dental examination Z01.20 [facility] [address] [id number] [address] [place] [address] Jan, Generalized anxiety disorder F41.1 [facility] [address] [id number] [address] [place] [address] December, Generalized anxiety disorder F41.1 [facility] [address] [id number] [address] [place] [address] [id number] December, Encounter for dental examina tion Z01.20 [facility] [address] [id number] [address] [place] [phone] Nov, [facility] [address] [id number] [address] [place] [phone] Nov, [facility] [address] [id number] [address] [place] [phone] Nov, Generalized anxiety disorder F41.1 [facility] [address] [id number] [address] [place] [address] Oct, [facility] [address] [id number] [address] [place] [address] [id number] Oct, Dental examination Z01.20 [facility] [address] [id number] [address] [place] [phone] Oct, Vaginal dryness N89.8 [facility] [address] [id number] [address] [place] [phone] Oct, Pseudoseizures F44.5 [facility] [address] [id number] [address] [place] [phone] Oct, Generalized anxiety disorder F41.1 [facility] [address] [facility] [id number] [address] [place] [phone] 28 Sep, 2016 Abnormal uterine bleeding (A UB) N93.9 ; Vaginal dryness N89.8 and Screening breast examination Z12.39 [place] [id number] [facility] [id number] [address] [place] [phone] 20 Sep, 2016 Dental examination Z01.20 [place] [address] [place] [id number] [address] [place] [id number] 20 Sep, 2016 Generalized anxiety disorder F41.1 [place] [address] [place] [id number] [address] [place] [phone] 06 Sep, 2016 Unspecified ovarian cyst, ri ght side N83.201 ; Unspecified ovarian cyst, left side N83.202 ; Yeast infection of the vagina B37.3 ; Mitral valve prolapse I34.1 and Hypertension I10 [place] [address] [place] [id number] [address] [place] [phone] Aug, Generalized anxiety disorder F41.1 [place] [address] [place] [id number] [address] [place] [phone] Jul, [place] [address] [place] [id number] [place] [phone] Jul, Generalized anxiety disorder F41.1 [place] [address] [place] [id number] [address] [place] [phone] Jun, Generalized anxiety disorder F41.1 [place] [address] [place] [id number] [address] [place] [phone] 28 May, 2016 Encounter for immunization Z 23 [place] [address] [place] [id number] [place] [phone] 17 May, 2016 Generalized anxiety disorder F41.1 and Depressive disorder, not elsewhere classified F32.9 [place] [address] [place] [id number] [address] [place] [phone] 28 Apr, 2016 Hypertension I10 [place] [address] [place] [id number] [address] [place] [phone] Apr, Cervicalgia M54.2 [facility] [address] [id number] [address] [place] [phone] 12 Apr, 2016 Cervicalgia M54.2 [facility] [address] [id number] [address] [place] [phone] Mar, Generalized anxiety disorder F41.1 and Depressive disorder, not elsewhere classified F32.9 [facility] [address] [id number] [address] [place] [address] [id number] 14 Feb, 2016 Visit for dental examination Z01.20 [facility] [address] [id number] [address] [place] [phone] 11 Feb, 2016 Pseudoseizures F44.5 ; Migra ine without status migrainosus, not intractable, unspecified migraine type G43.909 and Essential hypertension I10 [facility] [address] [id number] [address] [place] [address] [id number] Feb, Dental examination Z01.20 [facility] [address] [id number] [address] [place] [phone] Feb, Generalized anxiety disorder F41.1 and Depressive disorder, not elsewhere classified F32.9 [facility] [address] [id number] [address] [place] [phone] Jan, Tachycardia R00.0 [facility] [address] [id number] [address] [place] [id number] December, Eustachian tube dysfunction, bilateral H69.83 [facility] [address] [id number] [address] [place] [phone] December, Generalized anxiety disorder F41.1 and Depressive disorder, not elsewhere classified F32.9 [facility] [address] [id number] [address] [place] [phone] Nov, [facility] [address] [facility] [id number] [address] [place] [phone] 28 Nov, 2015 [place] [address] [place] [id number] [address] [place] [phone] Nov, Hypertension I10 ; Onychomyc osis B35.1 [...] and Complex cyst of left ovary N83.29 [place] [address] [phone] 14 Nov, 2015 Sinusitis J32.9 [place] [address] [place] [id number] [address] [place] [phone] Oct, Complex cyst of left ovary N 83.29 [place] [id number] [place] [address] Oct, Onychomycosis B35.1 [facility] [address] [place] [id number] [address] [place] [address] [id number] 17 Oct, 2015 Dental examination Z01.20 [place] [address] [place] [id number] [address] [place] [address] 09 Oct, 2015 Well woman exam Z01.419 [...] R92.2 and History of colon polyps Z86.010 [place] [address] [place] [id number] [address] [place] [phone] Oct, Generalized anxiety disorder F41.1 and Depressive disorder, not elsewhere classified F32.9 [facility] [address] [id number] [address] [place] [phone] Sep, Hypertension I10 and Onychom ycosis B35.1 [facility] [address] [id number] [address] [place] [phone] Sep, Skin tags, multiple acquired L91.8 [facility] [address] [id number] [address] [place] [id number] Aug, [facility] [address] [id number] [address] [place] [id number] Aug, [facility] [address] [id number] [address] [place] [id number] Aug, [facility] [address] [facility] [id number] [address] [place] [id number] Aug, Generalized anxiety disorder F41.1 and Depressive disorder, not elsewhere classified F32.9 [facility] [address] [facility] [id number] [address] [place] [id number] Jul, Skin lesion L98.9 [facility] [address] [facility] [id number] [address] [place] [id number] Jun, Generalized anxiety disorder F41.1 and Depressive disorder, not elsewhere classified F32.9 [facility] [address] [facility] [id number] [address] [place] [id number] Jun, [facility] [address] [facility] [id number] [address] [place] [phone] Jun, Generalized anxiety disorder F41.1 [facility] [address] [facility] [id number] [address] [place] [id number] May, Encounter for immunization Z 23 and Right shoulder pain M25.511 [facility] [address] [facility] [id number] [address] [place] [id number] Apr, [facility] [address] [id number] [address] [place] [id number] 14 Apr, 2015 Generalized anxiety disorder 300.02 and Depressive disorder, not elsewhere classified 311 [facility] [address] [id number] [address] [place] [id number] Mar, Dental examination V72.2 [facility] [address] [id number] [address] [place] [id number] Mar, Generalized anxiety disorder 300.02 and Depressive disorder, not elsewhere classified 311 [facility] [address] [id number] [address] [place] [id number] Mar, Depression, major, recurrent , 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.35 and 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 [facility] [address] [id number] [address] [place] [id number] Feb, Generalized anxiety disorder 300.02 and Depressive disorder, not elsewhere classified 311 [facility] [address] [id number] [address] [place] [id number] Feb, Dental examination V72.2 [facility] [address] [id number] [address] [place] [phone] Jan, Generalized anxiety disorder 300.02 and Depressive disorder, not elsewhere classified 311 [facility] [address] [id number] [address] [place] [address] Jan, [facility] [address] [id number] [address] [place] [address] December, Generalized anxiety disorder 300.02 and Depressive disorder, not elsewhere classified 311 [facility] [address] [id number] [address] [place] [address] December, Major depressive disorder, r ecurrent, unspecified 296.30 and Panic disorder with agoraphobia 300.21 [facility] [address] [id number] [address] [place] [address] Nov, [facility] [address] [id number] [address] [place] [address] Nov, [facility] [address] [id number] [address] [place] [address], [place] [address] Oct, [facility] [address] [id number] [address] [place] [address], [place] [address] Oct, [facility] [address] [id number] [address] [place] [address], [place] [address] Oct, [facility] [address] [id number] [address] [place] [address], [place] [address] Oct, [facility] [address] [id number] [address] [place] [address], [place] [address] Sep, [facility] [address] [id number] [address] [place] [address], [place] [address] Sep, [facility] [address] [id number] [address] [place] [address], [place] [address] Sep, 2014 [facility] [address] [id number] [address] [place] [address], [place] [address] Sep, [facility] [address] [id number] [address] [place] [address], [place] [address] Sep, [facility] [address] [id number] [address] [place] [address], [place] [address] Sep, [facility] [address] [id number] [address] [place] [address], [place] [address] Sep, 2014 [facility] [address] [id number] [address] [place] [address] Sep, 2014 [facility] [address] [id number] [address] [place] [address], [place] [address] Sep, 2014 [facility] [address] [id number] [address] [place] [address] Sep, 2014 [facility] [address] [id number] [address] [place] [address] Aug, [facility] [address] [id number] [address] [place] [address], [place] [address] Aug, [facility] [address] [id number] [address] [place] [address], [place] [address] Jul, [facility] [address] [id number] [address] [place] [address], [place] [address] Jul, [facility] [address] [id number] [address] [place] [address], [place] [address] Jul, [facility] [address] [id number] [address] [place] [address], [place] [address] Jul, [facility] [address] [id number] [address] [place] [address], [place] [address] Jul, [facility] [address] [id number] [address] [place] [address], [place] [address] Jul, [facility] [address] [id number] [address] [place] [address], [place] [address] Jul, [facility] [address] [id number] [address] [place] [address], [place] [address] Jul, [facility] [address] [id number] [address] [place] [address], [place] [address] Jul, [facility] [address] [id number] [address] [place] [address], [place] [address] Jul, [facility] [address] [id number] [address] [place] [address], [place] [address] Jul, [facility] [address] [id number] [address] [place] [address], [place] [address] Jul, [facility] [address] [id number] [address] [place] [address], [place] [address] Jun, [facility] [address] [id number] [address] [place] [address], [place] [address] Jun, [facility] [address] [id number] [address] [place] [address], [place] [address] May, [facility] [address] [id number] [address] [place] [address], [place] [address] May, [facility] [address] [id number] [address] [place] [address], [place] [address] May, [facility] [address] [id number] [address] [place] [address], [place] [address] May, [facility] [address] [id number] [address] [place] [address] May, [facility] [address] [id number] [address] [place] [address], [place] [address] May, [facility] [address] [id number] [address] [place] [address], [place] [address] May, [facility] [address] [id number] [address] [place] [address], [place] [address] May, [facility] [address] [id number] [address] [place] [address], [place] [address] May, [facility] [address] [id number] [address] [place] [address], [place] [address] May, [facility] [address] [id number] [address] [place] [address], [place] [address] May, [facility] [address] [id number] [address] [place] [address] May, [facility] [address] [id number] [address] [place] [address] 30 Apr, 2014 [facility] [address] [id number] [address] [place] [address], [place] [address] 30 Apr, 2014 [facility] [address] [id number] [address] [place] [address], [place] [address] 29 Apr, 2014 [facility] [address] [id number] [address] [place] [address], [place] [address] 29 Apr, 2013 [facility] [address] [id number] [facility] [place] [address] Apr, [facility] [address] [id number] [address] [place] [address], [place] [address] Apr, [facility] [address] [id number] [address] [place] [address], [place] [address] Feb, [facility] [address] [id number] [address] [place] [address], [place] [address] Feb, [facility] [address] [id number] [address] [place] [address], [place] [address] Feb, [facility] [address] [id number] [address] [place] [address], [place] [address] Feb, [facility] [address] [id number] [address] [place] [address], [place] [address] Feb, [facility] [address] [id number] [address] [place] [address], [place] [address] Feb, [facility] [address] [id number] [address] [place] [address], [place] [address] Jan, [facility] [address] [id number] [address] [place] [address], [place] [address] Jan, [facility] [address] [id number] [address] [place] [address], [place] [address] Jan, [facility] [address] [id number] [address] [place] [address], [place] [address] Jan, [facility] [address] [id number] [address] [place] [address], [place] [address] Jan, [facility] [address] [id number] [address] [place] [address], [place] [address] Jan, [facility] [address] [id number] [address] [place] [address], [place] [address] Jan, [facility] [address] [id number] [address] [place] [address], [place] [address] Jan, [facility] [address] [id number] [address] [place] [address], [place] [address] December, [facility] [address] [id number] [address] [place] [address], [place] [address] December, [facility] [address] [id number] [address] [place] [address], [place] [address] December, [facility] [address] [id number] [address] [place] [address], [place] [address] December, [facility] [address] [id number] [address] [place] [address], [place] [address] Nov, [facility] [address] [id number] [address] [place] [address], [place] [address] Nov, [facility] [address] [id number] [address] [place] [address], [place] [address] Nov, [facility] [address] [id number] [address] [place] [address], [place] [address] Nov, [facility] [address] [id number] [address] [place] [address], [place] [address] Nov, [facility] [address] [id number] [address] [place] [address], [place] [address] Nov, [facility] [address] [id number] [address] [place] [address], [place] [address] Nov, [facility] [address] [id number] [address] [place] [address], [place] [address] Nov, [facility] [address] [id number] [address] [place] [address], [place] [address] Oct, [facility] [address] [id number] [address] [place] [address], [place] [address] Oct, [facility] [address] [id number] [address] [place] [address], [place] [address] Sep, [facility] [address] [id number] [address] [place] [address], [place] [address] Sep, [facility] [address] [id number] [address] [place] [address], [place] [id number] Sep, [facility] [address] [id number] [address] [place] [address], [place] [address] Sep, [facility] [address] [id number] [address] [place] [address], [place] [address] Sep, [facility] [address] [id number] [address] [place] [address], [place] [address] Sep, [facility] [address] [id number] [address] [place] [address], [place] [address] Aug, [facility] [address] [id number] [address] [place] [address], [place] [address] Aug, [facility] [address] [id number] [address] [place] [address], [place] [address] Aug, [facility] [address] [id number] [address] [place] [address], [place] [address] Aug, [facility] [address] [id number] [address] [place] [address], [place] [address] Jul, [facility] [address] [id number] [address] [place] [address], [place] [address] Jul, [facility] [address] [id number] [address] [place] [address], [place] [address] Jul, [facility] [address] [id number] [address] [place] [address], [place] [address] Jul, [facility] [address] [id number] [address] [place] [address], [place] [address] Jun, [facility] [address] [id number] [address] [place] [address], [place] [address] Jun, [facility] [address] [id number] [address] [place] [address], [place] [address] May, [facility] [address] [id number] [address] [place] [address], [place] [address] May, [facility] [address] [id number] [address] [place] [address], [place] [address] May, [facility] [address] [id number] [address] [place] [address], [place] [address] May, [facility] [address] [id number] [address] [place] [address], [place] [address] May, [facility] [address] [id number] [address] [place] [address], [place] [address] Apr, [facility] [address] [id number] [address] [place] [address], [place] [address] Apr, [facility] [address] [id number] [address] [place] [address], [place] [address] Mar, [facility] [address] [id number] [address] [place] [address], [place] [address] Mar, [facility] [place] [address] [id number] [address] [place] [address], [place] [address] Mar, [facility] [place] [address] [id number] [address] [place] [address], [place] [address] Mar, [facility] [address] [id number] [address] [place] [address], [place] [address] Feb, [facility] [address] [id number] [address] [place] [address], [place] [address] Feb, [facility] [address] [id number] [address] [place] [address], [place] [address] 16 Feb, 2013 [facility] [address] [id number] [address] [place] [address], [place] [address] Feb, [facility] [address] [id number] [address] [place] [address], [place] [address] Feb, [facility] [address] [id number] [address] [place] [address], [place] [address] Jan, [facility] [place] [address] [id number] [address] [place] [address], [place] [address] Jan, [facility] [address] [id number] [address] [place] [address], [place] [address] Jan, [facility] [address] [id number] [address] [place] [address], [place] [address] Jan, [facility] [address] [id number] [address] [place] [address], [place] [address] Jan, [facility] [address] [id number] [address] [place] [address], [place] [address] December, [facility] [address] [id number] [address] [place] [address], [place] [address] December, [facility] [address] [id number] [address] [place] [address], [place] [address] Nov, [facility] [address] [id number] [address] [place] [address], [place] [address] Nov, [facility] [place] [address] [id number] [address] [place] [address], [place] [address] Oct, [facility] [address] [id number] [address] [place] [address], [place] [address] Oct, [facility] [address] [id number] [address] [place] [address], [place] [address] Oct, [facility] [address] [id number] [address] [place] [address], [place] [address] 14 Sep, 2012 [facility] [address] [id number] [address] [place] [address], [place] [address] 24 Aug, 2012 [facility] [address] [id number] [address] [place] [address], [place] [address] 16 Aug, 2012 [facility] [address] [id number] [address] [place] [address], [place] [address] 15 Aug, 2012 [facility] [address] [id number] [address] [place] [address], [place] [address] Aug, [facility] [address] [id number] [address] [place] [address], [place] [address] Jul, [facility] [address] [id number] [address] [place] [address], [place] [address] Jul, [facility] [address] [id number] [address] [place] [address], [place] [address] Jul, [facility] [address] [id number] [address] [place] [address], [place] [address] Jul, [facility] [address] [id number] [address] [place] [address], [place] [address] Jul, [facility] [address] [id number] [address] [place] [address], [place] [address] Jul, [facility] [address] [id number] [address] [place] [address], [place] [address] Jul, [facility] [address] [id number] [address] [place] [address], [place] [address] Jul, [facility] [address] [id number] [address] [place] [address], [place] [address] Jun, [facility] [address] [id number] [address] [place] [address], [place] [address] Jun, [facility] [address] [id number] [address] [place] [address], [place] [address] Jun, [facility] [address] [id number] [address] [place] [address], [place] [address] Jun, [facility] [address] [id number] [address] [place] [address], [place] [address] Jun, [facility] [address] [id number] [address] [place] [address], [place] [address] Jun, [facility] [address] [id number] [address] [place] [address], [place] [address] May, [facility] [address] [id number] [address] [place] [address], [place] [address] May, [facility] [address] [id number] [address] [place] [address], [place] [address] May, [facility] [address] [id number] [address] [place] [address], [place] [address] 17 May, 2012 [facility] [address] [id number] [address] [place] [address], [place] [address] Apr, [facility] [address] [id number] [address] [place] [address], [place] [address] 06 Apr, 2012 [facility] [address] [id number] [address] [place] [address], [place] [address] Mar, [facility] [address] [id number] [address] [place] [address], [place] [address] 28 Jan, 2012 [facility] [address] [id number] [address] [place] [address], [place] [address] 20 Jan, 2012 [facility] [address] [id number] [address] [place] [address], [place] [address] 16 Jan, 2012 [facility] [address] [id number] [address] [place] [address], [place] [address] 15 Jan, 2012 [facility] [address] [id number] [address] [place] [address], [place] [address] 14 Jan, 2012 [facility] [address] [id number] [address] [place] [id number] 14 Jan, 2012 [facility] [address] [id number] [address] [place] [address], [place] [address] 07 Jan, 2012 [facility] [address] [id number] [address] [place] [address], [place] [address] December, [facility] [address] [id number] [address] [place] [address], [place] [address] December, [facility] [address] [id number] [address] [place] [address], [place] [address] December, [facility] [place] [address] [id number] [address] [place] [address], [place] [address] December, [facility] [address] [id number] [address] [place] [address], [place] [address] Nov, [facility] [address] [id number] [address] [place] [address], [place] [address] Nov, [facility] [address] [id number] [address] [place] [address], [place] [address] Oct, [facility] [address] [id number] [address] [place] [address], [place] [address] Oct, [facility] [address] [id number] [address] [place] [address], [place] [address] Oct, [facility] [place] [address] [id number] [address] [place] [address], [place] [address] Sep, [facility] [address] [id number] [address] [place] [address], [place] [id number] Sep, [facility] [address] [id number] [address] [place] [address], [place] [address] Sep, [facility] [address] [id number] [address] [place] [address], [place] [address] Aug, [facility] [address] [id number] [address] [place] [address], [place] [id number] Aug, [facility] [address] [id number] [address] [place] [address], [place] [address] Aug, [facility] [address] [id number] [address] [place] [address], [place] [address] Aug, [facility] [address] [id number] [address] [place] [address], [place] [address] Aug, [facility] [address] [id number] [address] [place] [address], [place] [address] Aug, [facility] [address] [id number] [address] [place] [address], [place] [address] Aug, [facility] [address] [id number] [address] [place] [address], [place] [address] Jul, [facility] [address] [id number] [address] [place] [address], [place] [address] Jul, [facility] [address] [id number] [address] [place] [address], [place] [address] Jun, [facility] [address] [id number] [address] [place] [address], [place] [address] Jun, [facility] [address] [id number] [address] [place] [address], [place] [address] 17 Jun, 2011 [facility] [address] [id number] [address] [place] [address], [place] [address] 15 Jun, 2011 [facility] [address] [id number] [address] [place] [address], [place] [address] Jun, [facility] [address] [id number] [address] [place] [address], [place] [address] Jun, [facility] [address] [id number] [address] [place] [address], [place] [address] Jun, [facility] [address] [id number] [address] [place] [address], [place] [address] Jun, [facility] [address] [id number] [address] [place] [address], [place] [address] Jun, [facility] [address] [id number] [address] [place] [address], [place] [address] Jun, [facility] [address] [id number] [address] [place] [address], [place] [address] May, [facility] [address] [id number] [address] [place] [address], [place] [address] May, [facility] [address] [id number] [address] [place] [address], [place] [address] May, [facility] [address] [id number] [address] [place] [address], [place] [address] 24 May, 2011 [facility] [address] [id number] [address] [place] [address], [place] [id number] 18 May, 2011 [facility] [address] [id number] [address] [place] [address], [place] [address] 13 May, 2011 [facility] [address] [id number] [address] [place] [address], [place] [address] 13 Feb, 2011 [facility] [address] [id number] [address] [place] [address], [place] [address] December, [facility] [address] [id number] [address] [place] [address], [place] [address] Jul, [facility] [address] [id number] [address] [place] [address], [place] [address] 29 Jul, 2010 [facility] [address] [id number] [address] [place] [address], [place] [address] Jul, [facility] [address] [id number] [address] [place] [address], [place] [address] Jul, [facility] [address] [id number] [address] [place] [address], [place] [address] Jun, [facility] [address] [id number] [address] [place] [address], [place] [address] 31 Jul, 2009 [facility] [address] [id number] [address] [place] [address], [place] [address] 23 Jul, 2009 [facility] [address] [id number] [address] [place] [address], [place] [id number] 23 Jul, 2009 [facility] [address] [id number] [address] [place] [address], [place] [id number] 17 Jul, 2009 [facility] [address] [id number] [address] [place] [address], [place] [id number] 17 Jul, 2009 [facility] [address] [id number] [address] [place] [id number] 10 Jul, 2009 [facility] [address] [facility] [id number] [address] [place] [id number] Jan, [facility] [address] [facility] [id number] [address] [place] [id number] 16 Sep, 2008 [facility] [address] [facility] [id number] [address] [place] [id number] 11 Sep, 2008 IMMUNIZATIONS No Known Immunizations SOCIAL HISTORY Never Assessed REASON FOR VISIT PLAN OF CARE VITAL SIGNS Height 66 in 2014-05-23 Weight 201.6 lbs 2014-05-23 Temperature 99.1 degrees Fahrenheit 2014-05-23 Heart Rate 88 bpm 2014-05-23 Respiratory Rate 18 2014-05-23 Blood pressure systolic 124 mmHg 2014-05-23 Blood pressure diastolic 84 mmHg 2014-05-23 MEDICATIONS Unknown Medications RESULTS No Results PROCEDURES Procedure Date Ordered Result Body Site COMPLETE CBC W/AUTO DIFF WBC May 23, 2014 LIPID PANEL May 23, 2014 COMPREHEN METABOLIC PANEL May 23, 2014 VENIPUNCT, ROUTINE* May 23, 2014 INSTRUCTIONS MEDICATIONS ADMINISTERED No Known Medications [...]
--- OUTSIDE RECORDS SUMMARY | 2020-01-27 10:16 | XMS REPORT ---
Author Author Silvia MERCHANT Organization [facility] [place] Address [address] [place] [address] Care Team Providers Care Security Officer Name Role Phone KVNG MERCHANT Unavailable PROBLEMS Type Condition ICD9-CM Code [id number] Code Onset Dates Condition S tatus SNOMED Code Problem Hypertension I10 Active 8626162 3 Problem Generalized anxiety disorder F41.1 A ctive 081089721 Problem History of colon polyps Z86.010 Active 300686183 Problem History of diverticulitis Z87.19 Acti ve [id number] Problem Family history of diabetes mellitus Z83.3 Active 673413955 Problem Excessive and frequent menstruation with irregular cycle N92.1 Active 070605663 Problem Hot flashes N95.1 Active 17785328 8 Problem Gastroesophageal reflux disease with esophagitis K 21.0 Active 677822797 Problem History of ovarian cyst Z87.42 Active 22574400 Problem Diverticulitis K57.92 Active 47653 6006 Problem Dense breast tissue R92.2 Active 500133254 Problem Perimenopausal N95.1 Active 41614 6932016972 Problem Mitral valve prolapse I34.1 Active 005406314 Problem Abnormal uterine bleeding (AUB) N93.9 Active [id number] Problem Tachycardia R00.0 Active 4130557 ALLERGIES No Information ENCOUNTERS Encounter Location Date Diagnosis [facility] [place] [address] [facility] [id number] [address] [place] [id number] Apr, [facility] [place] [address] [facility] [id number] [address] [place] [phone] Mar, [facility] [place] [address] [facility] [id number] [address] [place] [phone] Mar, [facility] [place] [address] [facility] [id number] [address] [place] [id number] Mar, [facility] [place] [address] [id number] [address] [place] [phone] Mar, [facility] [place] [address] [id number] [address] [place] [phone] Mar, [facility] [place] [address] [facility] [id number] [address] [place] [phone] Mar, Tachycardia R00.0 and Essent ial hypertension I10 [facility] [place] [address] [id number] [address] [place] [phone] Feb, Generalized anxiety disorder F41.1 [facility] [place] [address] [id number] [address] [place] [address] Feb, Generalized anxiety disorder F41.1 and Bereavement Z63.4 [facility] [place] [address] [facility] [id number] [address] [place] [phone] Feb, Generalized anxiety disorder F41.1 [facility] [place] [address] [facility] [id number] [address] [place] [phone] Feb, Generalized anxiety disorder F41.1 and Bereavement Z63.4 [facility] [place] [address] [facility] [id number] [address] [place] [phone] Jan, [facility] [place] [address] [facility] [id number] [address] [place] [address] Jan, Breast cancer screening by trenton crenshaw Z12.31 [facility] [place] [address] [facility] [id number] [address] [place] [phone] Jan, Generalized anxiety disorder F41.1 and Bereavement Z63.4 [facility] [place] [address] [facility] [id number] [address] [place] [phone] Jan, [facility] [place] [address] [facility] [id number] [address] [place] [address] December, Generalized anxiety disorder F41.1 and Bereavement Z63.4 [facility] [place] [address] [facility] [id number] [address] [place] [address] December, Diverticulitis K57.92 ; Dysu nick R30.0 ; Other constipation K59.09 and Lower abdominal pain R10.30 [facility] [address] [id number] [address] [place] [address] Nov, Diverticulitis K57.92 [facility] [place] [address] [id number] [address] [place] [address] Nov, Generalized anxiety disorder F41.1 and Bereavement Z63.4 [facility] [place] [address] [id number] [address] [place] [address] Nov, Generalized anxiety disorder F41.1 and Bereavement Z63.4 [place] [id number] [facility] [id number] [address] [place] [address] Nov, Diverticulitis K57.92 [facility] [address] [facility] [id number] [address] [place] [address] Oct, Diverticulitis K57.92 [facility] [place] [address] [facility] [id number] [address] [place] [address] Oct, Diverticulitis K57.92 [place] [address] [facility] [id number] [address] [place] [address] Oct, Generalized anxiety disorder F41.1 [facility] [address] [facility] [id number] [address] [place] [address] Oct, Right lower quadrant abdomin al pain R10.31 and Diverticulitis K57.92 [facility] [place] [address] [id number] [address] [place] [address] Sep, Generalized anxiety disorder F41.1 and Bereavement Z63.4 [facility] [place] [address] [facility] [id number] [address] [place] [phone] Aug, [facility] [place] [address] [facility] [id number] [address] [place] [address] Aug, Generalized anxiety disorder F41.1 and Bereavement Z63.4 [facility] [address] [id number] [place] [address] 11 Aug, 2018 Caries K02.9 [facility] [place] [address] [facility] [id number] [address] [place] [phone] 17 Jul, 2018 Generalized anxiety disorder F41.1 and Bereavement Z63.4 [facility] [place] [address] [facility] [id number] [address] [place] [address] 05 Jul, 2018 Other acute gastritis withou t hemorrhage K29.00 ; Generalized anxiety disorder F41.1 ; Tachycardia R00.0 and Essential hypertension I10 [facility] [place] [address] [facility] [id number] [address] [place] [id number] 05 Jul, 2018 Generalized anxiety disorder F41.1 and Bereavement Z63.4 [facility] [place] [address] [facility] [id number] [address] [place] [address] Jun, Generalized anxiety disorder F41.1 and Bereavement Z63.4 [facility] [place] [address] [facility] [id number] [address] [place] [address] 06 Jun, 2018 Generalized anxiety disorder F41.1 and Bereavement Z63.4 [facility] [address] [id number] [place] [address] 02 Jun, 2018 Dental examination Z01.20 [facility] [place] [address] [facility] [id number] [address] [place] [address] May, Generalized anxiety disorder F41.1 and Bereavement Z63.4 [facility] [place] [address] [facility] [id number] [address] [place] [address] May, Encounter for immunization Z 23 [facility] [place] [address] [facility] [id number] [address] [place] [address] May, Generalized anxiety disorder F41.1 and Bereavement Z63.4 [facility] [place] [address] [facility] [id number] [address] [place] [phone] May, [facility] [place] [address] [id number] [address] [place] [address] 24 Apr, 2018 Generalized anxiety disorder F41.1 and Bereavement Z63.4 [facility] [place] [address] [id number] [address] [place] [address] Apr, [facility] [place] [address] [id number] [address] [place] [address] Apr, Diverticulitis K57.92 [facility] [place] [address] [id number] [address] [place] [address] Apr, Generalized anxiety disorder F41.1 and Bereavement Z63.4 [facility] [address] [id number] [address] [place] [address] Mar, [facility] [address] [id number] [address] [place] [address] Mar, Diverticulitis K57.92 [facility] [place] [address] [id number] [address] [place] [address] Mar, Generalized anxiety disorder F41.1 and Bereavement Z63.4 [facility] [place] [address] [facility] [id number] [address] [place] [address] Mar, Hypertension I10 [facility] [place] [address] [id number] [address] [place] [address] Mar, Generalized anxiety disorder F41.1 and Bereavement Z63.4 [facility] [place] [address] [id number] [address] [place] [address] Feb, Generalized anxiety disorder F41.1 and Bereavement Z63.4 [facility] [place] [address] [id number] [address] [place] [phone] Feb, [facility] [place] [address] [facility] [id number] [address] [place] [address] Feb, Generalized anxiety disorder F41.1 and Bereavement Z63.4 [facility] [place] [address] [id number] [address] [place] [address] Feb, Generalized anxiety disorder F41.1 and Bereavement Z63.4 [facility] [place] [address] [id number] [address] [place] [address] Jan, Hypertension I10 and Acute n on-recurrent maxillary sinusitis J01.00 [facility] [place] [address] [id number] [address] [place] [address] December, [facility] [place] [address] [id number] [address] [place] [address] December, Hypertension I10 [facility] [place] [address] [facility] [id number] [address] [place] [address] December, Generalized anxiety disorder F41.1 [facility] [address] [id number] [address] [place] [address] Oct, Encounter for dental examina tion Z01.20 [facility] [address] [id number] [address] [place] [address] Oct, Encounter for dental examina tion Z01.20 [facility] [address] [id number] [address] [place] [address] Oct, Dental examination Z01.20 [facility] [place] [address] [id number] [address] [place] [address] Oct, Generalized anxiety disorder F41.1 [facility] [address] [id number] [address] [place] [address] Aug, Dental examination Z01.20 [facility] [place] [address] [id number] [address] [place] [address] Aug, Generalized anxiety disorder F41.1 [facility] [place] [address] [id number] [address] [place] [address] Aug, [facility] [address] [id number] [address] [place] [phone] 09 Aug, 2017 Encounter for dental examina tion Z01.20 [facility] [place] [address] [id number] [address] [place] [phone] 08 Aug, 2017 Subacute maxillary sinusitis J01.00 [facility] [address] [id number] [address] [place] [id number] 22 Jul, 2017 Dental examination Z01.20 [facility] [place] [address] [id number] [address] [place] [phone] 19 Jul, 2017 Generalized anxiety disorder F41.1 [facility] [place] [address] [id number] [address] [place] [address] 11 Jul, 2017 Diverticulitis K57.92 [facility] [place] [address] [id number] [address] [place] [address] 28 Jun, 2017 Encounter for immunization Z 23 [facility] [address] [id number] [address] [place] [phone] 22 Jun, 2017 Dental examination Z01.20 [facility] [place] [address] [id number] [address] [place] [address] 14 Jun, 2017 Generalized anxiety disorder F41.1 [facility] [address] [id number] [address] [place] [id number] 07 Jun, 2017 Dental examination Z01.20 [facility] [place] [address] [id number] [address] [place] [address] May, [facility] [address] [id number] [address] [place] [address] [id number] May, Dental examination Z01.20 [facility] [address] [id number] [address] [place] [address] [id number] May, Dental examination Z01.20 [facility] [address] [id number] [address] [place] [phone] 13 May, 2017 Dental examination Z01.20 [facility] [place] [address] [id number] [address] [place] [address] May, [facility] [place] [address] [id number] [address] [place] [address] May, Generalized anxiety disorder F41.1 [facility] [place] [address] [id number] [address] [place] [address] May, Localized edema R60.0 ; Yeas t vaginitis B37.3 and Gastroesophageal reflux disease with esophagitis K21.0 [facility] [address] [id number] [address] [place] [address] [id number] Apr, Dental examination Z01.20 [facility] [address] [id number] [address] [place] [address] Apr, Dental examination Z01.20 [facility] [address] [id number] [address] [place] [address] 05 Apr, 2017 Dental examination Z01.20 [facility] [place] [address] [id number] [address] [place] [address] Mar, Dyspepsia R10.13 [facility] [place] [address] [id number] [address] [place] [address] Mar, Generalized anxiety disorder F41.1 [facility] [address] [id number] [address] [place] [address] Mar, Encounter for dental examina tion Z01.20 [facility] [address] [id number] [address] [place] [address] [id number] Mar, [facility] [address] [id number] [address] [place] [address] [id number] Mar, Dental examination Z01.20 [facility] [place] [address] [id number] [address] [place] [address] Feb, Hypertension I10 and Tachyca rdia R00.0 [facility] [address] [id number] [address] [place] [phone] Feb, [facility] [place] [address] [id number] [address] [place] [address] Feb, Generalized anxiety disorder F41.1 [facility] [address] [id number] [address] [place] [address] [id number] Feb, Dental examination Z01.20 [facility] [place] [address] [id number] [address] [place] [address] Jan, Generalized anxiety disorder F41.1 [facility] [place] [address] [id number] [address] [place] [address] December, Generalized anxiety disorder F41.1 [facility] [address] [id number] [address] [place] [id number] December, Encounter for dental examina tion Z01.20 [facility] [place] [address] [id number] [address] [place] [address] Nov, [facility] [place] [address] [id number] [address] [place] [phone] Nov, [facility] [place] [address] [id number] [address] [place] [address] Nov, Generalized anxiety disorder F41.1 [facility] [place] [address] [id number] [address] [place] [id number] Oct, [facility] [address] [id number] [address] [place] [address] [id number] Oct, Dental examination Z01.20 [facility] [place] [address] [id number] [address] [place] [address] Oct, Vaginal dryness N89.8 [facility] [place] [address] [id number] [address] [place] [address] Oct, Pseudoseizures F44.5 [facility] [place] [address] [id number] [address] [place] [address] Oct, Generalized anxiety disorder F41.1 [place] [id number] [facility] [id number] [address] [place] [address] 28 Sep, 2016 Abnormal uterine bleeding (A UB) N93.9 ; Vaginal dryness N89.8 and Screening breast examination Z12.39 [place] [address] [place] [id number] [address] [place] [address] 20 Sep, 2016 Dental examination Z01.20 [place] [address] [place] [id number] [address] [place] [address] 20 Sep, 2016 Generalized anxiety disorder F41.1 [place] [address] [place] [id number] [address] [place] [address] 06 Sep, 2016 Unspecified ovarian cyst, ri ght side N83.201 ; Unspecified ovarian cyst, left side N83.202 ; Yeast infection of the vagina B37.3 ; Mitral valve prolapse I34.1 and Hypertension I10 [place] [address] [place] [id number] [address] [place] [address] Aug, Generalized anxiety disorder F41.1 [place] [address] [place] [id number] [address] [place] [address] Jul, [place] [address] [place] [id number] [place] [address] Jul, Generalized anxiety disorder F41.1 [place] [address] [place] [id number] [address] [place] [address] Jun, Generalized anxiety disorder F41.1 [place] [address] [place] [id number] [address] [place] [phone] May, Encounter for immunization Z 23 [place] [address] [place] [id number] [address] [place] [address] 17 May, 2016 Generalized anxiety disorder F41.1 and Depressive disorder, not elsewhere classified F32.9 [place] [address] [place] [id number] [address] [place] [address] 28 Apr, 2016 Hypertension I10 [place] [address] [place] [id number] [address] [place] [phone] Apr, Cervicalgia M54.2 [facility] [address] [id number] [address] [place] [id number] 12 Apr, 2016 Cervicalgia M54.2 [facility] [place] [address] [id number] [address] [place] [address] Mar, Generalized anxiety disorder F41.1 and Depressive disorder, not elsewhere classified F32.9 [facility] [address] [id number] [address] [place] [address] [id number] 14 Feb, 2016 Visit for dental examination Z01.20 [facility] [place] [address] [id number] [address] [place] [phone] 11 Feb, 2016 Pseudoseizures F44.5 ; Migra ine without status migrainosus, not intractable, unspecified migraine type G43.909 and Essential hypertension I10 [facility] [address] [id number] [address] [place] [address] [id number] Feb, Dental examination Z01.20 [facility] [place] [address] [id number] [address] [place] [phone] Feb, Generalized anxiety disorder F41.1 and Depressive disorder, not elsewhere classified F32.9 [facility] [place] [address] [id number] [address] [place] [phone] Jan, Tachycardia R00.0 [facility] [place] [address] [id number] [address] [place] [phone] December, Eustachian tube dysfunction, bilateral H69.83 [facility] [place] [address] [id number] [address] [place] [phone] December, Generalized anxiety disorder F41.1 and Depressive disorder, not elsewhere classified F32.9 [facility] [place] [address] [id number] [address] [place] [id number] Nov, [facility], [place] [address] [facility] [id number] [address] [place] [id number] Nov, [place] [address] [place] [id number] [address] [place] [address] Nov, Hypertension I10 ; Onychomyc osis B35.1 [...] and Complex cyst of left ovary N83.29 [place] [address] [id number] 14 Nov, 2015 Sinusitis J32.9 [place] [address] [place] [id number] [address] [place] [address] Oct, Complex cyst of left ovary N 83.29 [place] [address] [place] [id number] [address] [place] [address] Oct, Onychomycosis B35.1 [facility] [id number] [place] [id number] 17 Oct, 2015 Dental examination Z01.20 [place] [address] [place] [id number] [address] [place] [id number] 09 Oct, 2015 Well woman exam Z01.419 [...] R92.2 and History of colon polyps Z86.010 [place] [address] [place] [id number] [address] [place] [id number] 03 Mar, 2016 Generalized anxiety disorder F41.1 and Depressive disorder, not elsewhere classified F32.9 [facility], [place] [address] [id number] [address] [place] [address] Sep, Hypertension I10 and Onychom ycosis B35.1 [facility], [place] [address] [id number] [address] [place] [phone] Sep, Skin tags, multiple acquired L91.8 [facility], [place] [address] [id number] [address] [place] [id number] Aug, [facility], [place] [address] [id number] [address] [place] [id number] Aug, [facility], [place] [address] [id number] [address] [place] [id number] Aug, [facility], [place] [address] [id number] [address] [place] [id number] Aug, Generalized anxiety disorder F41.1 and Depressive disorder, not elsewhere classified F32.9 [facility], [place] [address] [id number] [address] [place] [id number] Jul, Skin lesion L98.9 [facility], [place] [address] [id number] [address] [place] [id number] Jun, Generalized anxiety disorder F41.1 and Depressive disorder, not elsewhere classified F32.9 [facility], [place] [address] [id number] [address] [place] [address] Jun, [facility], [place] [address] [id number] [address] [place] [address] Jun, Generalized anxiety disorder F41.1 [facility] [place] [address] [id number] [address] [place] [address] May, Encounter for immunization Z 23 and Right shoulder pain M25.511 [facility] [place] [address] [id number] [address] [place] [address] Apr, [facility] [place] [address] [id number] [address] [place] [address] 14 Apr, 2015 Generalized anxiety disorder 300.02 and Depressive disorder, not elsewhere classified 311 [facility] [address] [id number] [address] [place] [id number] Mar, Dental examination V72.2 [facility] [place] [address] [id number] [address] [place] [address] Mar, Generalized anxiety disorder 300.02 and Depressive disorder, not elsewhere classified 311 [facility] [place] [address] [id number] [address] [place] [address] Mar, Depression, major, recurrent , 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.35 and 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 [facility] [place] [address] [id number] [address] [place] [address] Feb, Generalized anxiety disorder 300.02 and Depressive disorder, not elsewhere classified 311 [facility] [address] [id number] [address] [place] [id number] Feb, Dental examination V72.2 [facility] [place] [address] [id number] [address] [place] [address] Jan, Generalized anxiety disorder 300.02 and Depressive disorder, not elsewhere classified 311 [facility] [place] [address] [id number] [address] [place] [address] Jan, [facility] [place] [address] [id number] [address] [place] [address] December, Generalized anxiety disorder 300.02 and Depressive disorder, not elsewhere classified 311 [facility] [place] [address] [id number] [address] [place] [address] December, Major depressive disorder, r ecurrent, unspecified 296.30 and Panic disorder with agoraphobia 300.21 [facility] [place] [address] [id number] [address] [place] [address] Nov, [facility] [place] [address] [id number] [address] [place] [address] Nov, [facility] [address] [id number] [address] [place] [address], [place] [address] Oct, [facility] [address] [id number] [address] [place] [address], [place] [address] Oct, [facility] [address] [id number] [address] [place] [address], [place] [address] Oct, [facility] [address] [id number] [address] [place] [address], [place] [address] Oct, [facility] [address] [id number] [address] [place] [address], [place] [address] Sep, [facility] [address] [id number] [address] [place] [address], [place] [address] Sep, [facility] [address] [id number] [address] [place] [address], [place] [address] Sep, [facility] [address] [id number] [address] [place] [address], [place] [address] Sep, [facility] [address] [id number] [address] [place] [address], [place] [address] Sep, [facility] [address] [id number] [address] [place] [address], [place] [address] Sep, [facility] [address] [id number] [address] [place] [address], [place] [address] Sep, 2014 [facility] [address] [id number] [address] [place] [address], [place] [address] Sep, [facility] [address] [id number] [address] [place] [address], [place] [address] Sep, 2014 [facility] [address] [id number] [address] [place] [address], [place] [address] Sep, [facility] [address] [id number] [address] [place] [address], [place] [address] Aug, [facility] [address] [id number] [address] [place] [address], [place] [address] Aug, [facility] [address] [id number] [address] [place] [address], [place] [address] Jul, [facility] [address] [id number] [address] [place] [address], [place] [address] Jul, [facility] [address] [id number] [address] [place] [address], [place] [address] Jul, [facility] [address] [id number] [address] [place] [address], [place] [address] Jul, [facility] [address] [id number] [address] [place] [address], [place] [address] Jul, [facility] [address] [id number] [address] [place] [address], [place] [address] Jul, [facility] [address] [id number] [address] [place] [address], [place] [address] Jul, [facility] [address] [id number] [address] [place] [address], [place] [address] Jul, [facility] [address] [id number] [address] [place] [address], [place] [address] Jul, [facility] [address] [id number] [address] [place] [address], [place] [address] Jul, [facility] [address] [id number] [address] [place] [address], [place] [address] Jul, [facility] [address] [id number] [address] [place] [address], [place] [address] Jul, [facility] [address] [id number] [address] [place] [address], [place] [address] Jun, [facility] [address] [id number] [address] [place] [address], [place] [address] Jun, [facility] [address] [id number] [address] [place] [address], [place] [address] May, [facility] [address] [id number] [address] [place] [address], [place] [address] May, [facility] [address] [id number] [address] [place] [address], [place] [address] May, [facility] [address] [id number] [address] [place] [address], [place] [address] May, [facility] [address] [id number] [address] [place] [address], [place] [address] May, [facility] [address] [id number] [address] [place] [address], [place] [address] May, [facility] [address] [id number] [address] [place] [address], [place] [address] May, [facility] [address] [id number] [address] [place] [address], [place] [address] May, [facility] [address] [id number] [address] [place] [address], [place] [address] May, [facility] [address] [id number] [address] [place] [address], [place] [address] May, [facility] [address] [id number] [address] [place] [address] May, [facility] [address] [id number] [address] [place] [address] May, [facility] [address] [id number] [address] [place] [address] 30 Apr, 2014 [facility] [address] [id number] [address] [place] [address], [place] [address] 30 Apr, 2014 [facility] [address] [id number] [address] [place] [address], [place] [address] 29 Apr, 2014 [facility] [address] [id number] [address] [place] [address], [place] [address] 29 Apr, 2014 [facility] [address] [id number] [address] [place] [address], [place] [address] Apr, [facility] [address] [id number] [address] [place] [address], [place] [address] Apr, [facility] [address] [id number] [address] [place] [address], [place] [address] Feb, [facility] [address] [id number] [address] [place] [address], [place] [address] Feb, [facility] [address] [id number] [address] [place] [address], [place] [address] Feb, [facility] [address] [id number] [address] [place] [address], [place] [address] Feb, [facility] [address] [id number] [address] [place] [address], [place] [address] Feb, [facility] [address] [id number] [address] [place] [address], [place] [address] Feb, [facility] [address] [id number] [address] [place] [address], [place] [address] Jan, [facility] [address] [id number] [address] [place] [address], [place] [address] Jan, [facility] [address] [id number] [address] [place] [address], [place] [address] Jan, [facility] [address] [id number] [address] [place] [address], [place] [address] Jan, [facility] [address] [id number] [address] [place] [address], [place] [address] Jan, [facility] [address] [id number] [address] [place] [address], [place] [address] Jan, [facility] [address] [id number] [address] [place] [address], [place] [address] Jan, [facility] [address] [id number] [address] [place] [address], [place] [address] Jan, [facility] [address] [id number] [facility] [place] [address] December, [facility] [address] [id number] [facility] [place] [address] December, [facility] [address] [id number] [address] [place] [address], [place] [address] December, [facility] [address] [id number] [address] [place] [address], [place] [address] December, [facility] [address] [id number] [address] [place] [address], [place] [address] Nov, [facility] [address] [id number] [address] [place] [address], [place] [address] Nov, [facility] [address] [id number] [address] [place] [address], [place] [address] Nov, [facility] [address] [id number] [address] [place] [address], [place] [address] Nov, [facility] [address] [id number] [address] [place] [address], [place] [address] Nov, [facility] [address] [id number] [address] [place] [address], [place] [address] Nov, [facility] [address] [id number] [address] [place] [address], [place] [address] Nov, [facility] [address] [id number] [address] [place] [address], [place] [address] Nov, [facility] [address] [id number] [address] [place] [address], [place] [address] Oct, [facility] [address] [id number] [address] [place] [address], [place] [address] Oct, [facility] [address] [id number] [address] [place] [address], [place] [address] Sep, [facility] [address] [id number] [address] [address] Sep, [facility] [address] [id number] [address] [place] [address], [place] [id number] Sep, [facility] [address] [id number] [address] [place] [address], [place] [address] Sep, [facility] [address] [id number] [address] [place] [address], [place] [address] Sep, [facility] [address] [id number] [address] [place] [address], [place] [address] Sep, [facility] [address] [id number] [address] [place] [address], [place] [address] Aug, [facility] [address] [id number] [address] [place] [address], [place] [address] Aug, [facility] [address] [id number] [address] [place] [address], [place] [address] Aug, [facility] [address] [id number] [address] [place] [address], [place] [address] Aug, [facility] [address] [id number] [address] [place] [address], [place] [address] Jul, [facility] [address] [id number] [address] [place] [address], [place] [address] Jul, [facility] [address] [id number] [address] [place] [address], [place] [address] Jul, [facility] [address] [id number] [address] [place] [address], [place] [address] Jul, [facility] [address] [id number] [address] [place] [address], [place] [address] Jun, [facility] [address] [id number] [address] [place] [address], [place] [address] Jun, [facility] [address] [id number] [address] [place] [address], [place] [address] May, [facility] [address] [id number] [facility] [place] [address] 24 May, 2013 [facility] [address] [id number] [address] [place] [address], [place] [address] May, [facility] [address] [id number] [address] [place] [address], [place] [address] May, [facility] [address] [id number] [address] [place] [address], [place] [address] May, [facility] [address] [id number] [address] [place] [address], [place] [address] Apr, [facility] [address] [id number] [address] [place] [address], [place] [address] Apr, [facility] [address] [id number] [address] [place] [address], [place] [address] Mar, [facility] [address] [id number] [address] [place] [address], [place] [address] Mar, [facility] [address] [id number] [address] [place] [address], [place] [address] Mar, [facility] [address] [id number] [address] [place] [address], [place] [address] Mar, [facility] [address] [id number] [address] [place] [address], [place] [address] Feb, [facility] [address] [id number] [address] [place] [address], [place] [address] Feb, [facility] [address] [id number] [address] [place] [address], [place] [address] 16 Feb, 2013 [facility] [address] [id number] [address] [place] [address], [place] [address] Feb, [facility] [address] [id number] [address] [place] [address], [place] [address] Feb, [facility] [address] [id number] [address] [place] [address], [place] [address] Jan, [facility] [address] [id number] [address] [place] [address], [place] [address] Jan, [facility] [address] [id number] [address] [place] [address], [place] [address] Jan, [facility] [address] [id number] [address] [place] [address], [place] [address] Jan, [facility] [address] [id number] [address] [place] [address], [place] [address] Jan, [facility] [address] [id number] [address] [place] [address], [place] [address] December, [facility] [address] [id number] [address] [place] [address], [place] [address] December, [facility] [address] [id number] [address] [place] [address], [place] [address] Nov, [facility] [address] [id number] [address] [place] [address], [place] [address] Nov, [facility] [address] [id number] [address] [place] [address], [place] [address] Oct, [facility] [address] [id number] [address] [place] [address], [place] [address] Oct, [facility] [address] [id number] [address] [place] [address], [place] [address] Oct, [facility] [address] [id number] [address] [place] [address], [place] [address] 14 Sep, 2012 [facility] [address] [id number] [address] [place] [address], [place] [address] Aug, [facility] [address] [id number] [address] [place] [address], [place] [address] 16 Aug, 2012 [facility] [address] [id number] [address] [place] [address], [place] [address] Aug, [facility] [address] [id number] [address] [place] [address], [place] [address] Aug, [facility] [address] [id number] [address] [place] [address], [place] [address] Jul, [facility] [address] [id number] [address] [place] [address], [place] [address] Jul, [facility] [address] [id number] [address] [place] [address], [place] [address] Jul, [facility] [address] [id number] [address] [place] [address], [place] [address] Jul, [facility] [address] [id number] [address] [place] [address], [place] [address] Jul, [facility] [address] [id number] [address] [place] [address], [place] [address] Jul, [facility] [address] [id number] [address] [place] [address], [place] [address] Jul, [facility] [address] [id number] [address] [place] [address], [place] [address] Jul, [facility] [address] [id number] [address] [place] [address], [place] [address] Jun, [facility] [address] [id number] [address] [place] [address], [place] [address] Jun, [facility] [address] [id number] [address] [place] [address], [place] [address] Jun, [facility] [address] [id number] [address] [place] [address], [place] [address] Jun, [facility] [address] [id number] [address] [place] [address], [place] [address] Jun, [facility] [address] [id number] [address] [place] [address], [place] [address] Jun, [facility] [address] [id number] [address] [place] [address], [place] [address] May, [facility] [address] [id number] [address] [place] [address], [place] [address] May, [facility] [address] [id number] [address] [place] [address], [place] [address] May, [facility] [address] [id number] [address] [place] [address], [place] [address] May, [facility] [address] [id number] [address] [place] [address], [place] [address] Apr, [facility] [address] [id number] [address] [place] [address], [place] [address] 06 Apr, 2012 [facility] [address] [id number] [address] [place] [address], [place] [address] Mar, [facility] [address] [id number] [address] [place] [address], [place] [address] Jan, [facility] [address] [id number] [address] [place] [address], [place] [address] 20 Jan, 2012 [facility] [address] [id number] [address] [place] [address], [place] [address] 16 Jan, 2012 [facility] [address] [id number] [address] [place] [address], [place] [address] 15 Jan, 2012 [facility] [address] [id number] [address] [place] [address], [place] [address] 14 Jan, 2012 [facility] [address] [id number] [address] [place] [address], [place] [address] 14 Jan, 2012 [facility] [address] [id number] [address] [place] [address], [place] [address] 07 Jan, 2012 [facility] [address] [id number] [address] [place] [address], [place] [address] December, [facility] [address] [id number] [address] [place] [address], [place] [address] December, [facility] [address] [id number] [address] [place] [address], [place] [address] December, [facility] [address] [id number] [address] [place] [address], [place] [address] December, [facility] [address] [id number] [address] [place] [address], [place] [address] Nov, [facility] [address] [id number] [address] [place] [address], [place] [address] Nov, [facility] [address] [id number] [address] [place] [address], [place] [address] Oct, [facility] [address] [id number] [address] [place] [address], [place] [address] Oct, [facility] [address] [id number] [address] [place] [address], [place] [address] Oct, [facility] [address] [id number] [address] [place] [address], [place] [address] Sep, [facility] [address] [id number] [address] [place] [address], [place] [address] Sep, [facility] [address] [id number] [address] [place] [address], [place] [address] Sep, [facility] [address] [id number] [address] [place] [address], [place] [address] Aug, [facility] [address] [id number] [address] [place] [address], [place] [address] Aug, [facility] [address] [id number] [address] [place] [address], [place] [address] Aug, [facility] [address] [id number] [address] [place] [address], [place] [address] Aug, [facility] [address] [id number] [address] [place] [address], [place] [address] Aug, [facility] [address] [id number] [address] [place] [address], [place] [address] Aug, [facility] [address] [id number] [address] [place] [address], [place] [address] Aug, [facility] [address] [id number] [address] [place] [address], [place] [address] Jul, [facility] [address] [id number] [address] [place] [address], [place] [address] Jul, [facility] [address] [id number] [address] [place] [address], [place] [address] 30 Jun, 2011 [facility] [address] [id number] [address] [place] [address], [place] [address] 28 Jun, 2011 [facility] [address] [id number] [address] [place] [address], [place] [address] 17 Jun, 2011 [facility] [address] [id number] [address] [place] [address], [place] [address] 15 Jun, 2011 [facility] [address] [id number] [address] [place] [address], [place] [address] 14 Jun, 2011 [facility] [address] [id number] [address] [place] [address], [place] [address] 14 Jun, 2011 [facility] [address] [id number] [address] [place] [address], [place] [address] Jun, [facility] [address] [id number] [address] [place] [address], [place] [address] Jun, [facility] [address] [id number] [address] [place] [address], [place] [address] Jun, [facility] [address] [id number] [address] [place] [address], [place] [address] Jun, [facility] [address] [id number] [address] [place] [address], [place] [address] May, [facility] [address] [address] [id number] [address] [place] [address], [place] [address] May, [facility] [address] [id number] [address] [place] [address], [place] [address] 25 May, 2011 [facility] [address] [id number] [address] [place] [address], [place] [address] 24 May, 2011 [facility] [address] [id number] [address] [place] [address], [place] [address] 18 May, 2011 [facility] [address] [id number] [address] [place] [address], [place] [address] 13 May, 2011 [facility] [address] [id number] [address] [place] [address], [place] [address] 13 Feb, 2011 [facility] [address] [id number] [address] [place] [address], [place] [address] December, [facility] [address] [id number] [address] [place] [address], [place] [address] 29 Jul, 2010 [facility] [address] [id number] [address] [place] [address], [place] [address] 29 Jul, 2010 [facility] [address] [id number] [address] [place] [address], [place] [address] 22 Jul, 2010 [facility] [address] [id number] [address] [place] [address], [place] [address] 21 Jul, 2010 [facility] [address] [id number] [address] [place] [address], [place] [address] 15 Jun, 2010 [facility] [address] [id number] [address] [place] [address], [place] [address] 31 Jul, 2009 [facility] [address] [id number] [address] [place] [address], [place] [address] 23 Jul, 2009 [facility] [address] [id number] [address] [place] [address], [place] [address] 23 Jul, 2009 [facility] [address] [id number] [address] [place] [address], [place] [address] 17 Jul, 2009 [facility] [address] [id number] [address] [place] [address], [place] [address] 17 Jul, 2009 [facility] [address] [id number] [address] [place] [id number] 10 Jul, 2009 [facility] [place] [address] [facility] [id number] [address] [place] [id number] Jan, [facility] [place] [address] [facility] [id number] [address] [place] [id number] 16 Sep, 2008 [facility] [place] [address] [facility] [id number] [address] [place] [id number] 11 Sep, 2008 IMMUNIZATIONS No Known Immunizations SOCIAL HISTORY Never Assessed REASON FOR VISIT PLAN OF CARE VITAL SIGNS MEDICATIONS Unknown Medications RESULTS No Results PROCEDURES Procedure Date Ordered Result Body Site PSYTX PT&/FAMILY 45 MINUTES March 17, 2014 INSTRUCTIONS MEDICATIONS ADMINISTERED No Known Medications [...]
--- OUTSIDE RECORDS SUMMARY | 2020-01-27 10:17 | XMS REPORT ---
Author Author Silvia WILKINS Organization [facility] Address [address] [place] [address] Care Team Providers Care Director Of Strategy & Mobile Name Role Phone LETTY WILKINS Unavailable PROBLEMS Type Condition ICD9-CM Code HVZ09-OH Code Onset Dates Condition S tatus SNOMED Code Problem Hypertension I10 Active 0597115 3 Problem Generalized anxiety disorder F41.1 A ctive 779458480 Problem History of colon polyps Z86.010 Active 910269303 Problem History of diverticulitis Z87.19 Acti ve 446154998761330 Problem Family history of diabetes mellitus Z83.3 Active 802910230 Problem Excessive and frequent menstruation with irregular cycle N92.1 Active 155187798 Problem Hot flashes N95.1 Active 07908794 8 Problem Gastroesophageal reflux disease with esophagitis K 21.0 Active 096884678 Problem History of ovarian cyst Z87.42 Active 03705112 Problem Diverticulitis K57.92 Active 27283 6006 Problem Dense breast tissue R92.2 Active 095643936 Problem Perimenopausal N95.1 Active 48809 1126768554 Problem Mitral valve prolapse I34.1 Active 982482602 Problem Abnormal uterine bleeding (AUB) N93.9 Active 45269254857355 Problem Tachycardia R00.0 Active 3947718 ALLERGIES No Information ENCOUNTERS Encounter Location Date Diagnosis [facility] [address] [facility] [id number] [address] [place] [phone] Apr, [facility] [address] [facility] [id number] [address] [place] [phone] Mar, [facility] [address] [facility] [id number] [address] [place] [phone] Mar, [facility] [address] [facility] [id number] [address] [place] [address] Feb, Generalized anxiety disorder F41.1 [facility] [address] [id number] [address] [place] [phone] Feb, Generalized anxiety disorder F41.1 and Bereavement Z63.4 [facility] [address] [id number] [address] [place] [address] Feb, Generalized anxiety disorder F41.1 [facility] [address] [facility] [id number] [address] [place] [address] Feb, Generalized anxiety disorder F41.1 and Bereavement Z63.4 [facility] [address] [id number] [address] [place] [address] Jan, [facility] [address] [facility] [id number] [address] [place] [phone] Jan, Breast cancer screening by trenton crenshaw Z12.31 [facility] [address] [facility] [id number] [address] [place] [address] Jan, Generalized anxiety disorder F41.1 and Bereavement Z63.4 [facility] [address] [id number] [address] [place] [address] Jan, [facility] [address] [facility] [id number] [address] [place] [phone] December, Generalized anxiety disorder F41.1 and Bereavement Z63.4 [facility] [address] [facility] [id number] [address] [place] [address] December, Diverticulitis K57.92 ; Dysu nick R30.0 ; Other constipation K59.09 and Lower abdominal pain R10.30 [facility] [address] [facility] [id number] [address] [place] [phone] Nov, Diverticulitis K57.92 [facility] [address] [facility] [id number] [address] [place] [phone] Nov, Generalized anxiety disorder F41.1 and Bereavement Z63.4 [facility] [address] [facility] [id number] [address] [place] [phone] Nov, Generalized anxiety disorder F41.1 and Bereavement Z63.4 [facility] [address] [facility] [id number] [address] [place] [address] Nov, Diverticulitis K57.92 [facility] [address] [facility] [id number] [address] [place] [address] Oct, Diverticulitis K57.92 [facility] [address] [facility] [id number] [address] [place] [address] Oct, Diverticulitis K57.92 [place] [address] [facility] [id number] [address] [place] [phone] Oct, Generalized anxiety disorder F41.1 [facility] [address] [facility] [id number] [address] [place] [address] Oct, Right lower quadrant abdomin al pain R10.31 and Diverticulitis K57.92 [place] [address] [facility] [id number] [address] [place] [address] Sep, Generalized anxiety disorder F41.1 and Bereavement Z63.4 [place] [address] [facility] [id number] [address] [place] [address] Aug, [place] [address] [facility] [id number] [address] [place] [address] Aug, Generalized anxiety disorder F41.1 and Bereavement Z63.4 [facility] [address] [id number] [address], [place] [address] Aug, Caries K02.9 [facility] [address] [facility] [id number] [address] [place] [address] Jul, Generalized anxiety disorder F41.1 and Bereavement Z63.4 [place] [address] [facility] [id number] [address] [place] [address] Jul, Other acute gastritis withou t hemorrhage K29.00 ; Generalized anxiety disorder F41.1 ; Tachycardia R00.0 and Essential hypertension I10 [facility] [address] [facility] [id number] [address] [place] [phone] 05 Jul, 2018 Generalized anxiety disorder F41.1 and Bereavement Z63.4 [facility] [address] [facility] [id number] [address] [place] [address] Jun, Generalized anxiety disorder F41.1 and Bereavement Z63.4 [facility] [address] [facility] [id number] [address] [place] [address] Jun, Generalized anxiety disorder F41.1 and Bereavement Z63.4 [facility] [address] [facility] [id number] [address] [address] 02 Jun, 2018 Dental examination Z01.20 [facility] [address] [facility] [id number] [address] [place] [phone] May, Generalized anxiety disorder F41.1 and Bereavement Z63.4 [facility] [address] [facility] [id number] [address] [place] [phone] 08 May, 2018 Encounter for immunization Z 23 [facility] [address] [facility] [id number] [address] [place] [phone] 08 May, 2018 Generalized anxiety disorder F41.1 and Bereavement Z63.4 [facility] [address] [facility] [id number] [address] [place] [phone] May, [facility] [address] [facility] [id number] [address] [place] [phone] 24 Apr, 2018 Generalized anxiety disorder F41.1 and Bereavement Z63.4 [facility] [address] [facility] [id number] [address] [place] [phone] 17 Apr, 2018 [facility] [address] [facility] [id number] [address] [place] [address] 13 Apr, 2018 Diverticulitis K57.92 [facility] [address] [id number] [address] [place] [address] Apr, Generalized anxiety disorder F41.1 and Bereavement Z63.4 [facility] [address] [facility] [id number] [address] [place] [phone] Mar, [facility] [address] [facility] [id number] [address] [place] [address] Mar, Diverticulitis K57.92 [facility] [address] [id number] [address] [place] [address] Mar, Generalized anxiety disorder F41.1 and Bereavement Z63.4 [facility] [address] [facility] [id number] [address] [place] [address] Mar, Hypertension I10 [facility] [address] [facility] [id number] [address] [place] [address] Mar, Generalized anxiety disorder F41.1 and Bereavement Z63.4 [facility] [address] [facility] [id number] [address] [place] [address] Feb, Generalized anxiety disorder F41.1 and Bereavement Z63.4 [facility] [address] [facility] [id number] [address] [place] [phone] Feb, [facility] [address] [facility] [id number] [address] [place] [address] Feb, Generalized anxiety disorder F41.1 and Bereavement Z63.4 [facility] [address] [facility] [id number] [address] [place] [phone] Feb, Generalized anxiety disorder F41.1 and Bereavement Z63.4 [facility] [address] [facility] [id number] [address] [place] [address] Jan, Hypertension I10 and Acute n on-recurrent maxillary sinusitis J01.00 [facility] [address] [facility] [id number] [address] [place] [address] December, [facility] [address] [id number] [address] [place] [phone] December, Hypertension I10 [facility] [address] [id number] [address] [place] [address] December, Generalized anxiety disorder F41.1 [facility] [address] [id number] [place] [address] 16 Oct, 2017 Encounter for dental examina tion Z01.20 [facility] [address] [id number] [address] [place] [phone] 06 Oct, 2017 Encounter for dental examina tion Z01.20 [facility] [address] [id number] [address] [place] [phone] 02 Oct, 2017 Dental examination Z01.20 [facility] [address] [id number] [address] [place] [address] Oct, Generalized anxiety disorder F41.1 [facility] [address] [id number] [address] [place] [phone] Aug, Dental examination Z01.20 [facility] [address] [id number] [address] [place] [phone] Aug, Generalized anxiety disorder F41.1 [facility] [address] [id number] [address] [place] [address] Aug, [facility] [address] [id number] [address] [place] [phone] Aug, Encounter for dental examina tion Z01.20 [facility] [address] [id number] [address] [place] [phone] Aug, Subacute maxillary sinusitis J01.00 [facility] [address] [id number] [address] [place] [address] Jul, Dental examination Z01.20 [facility] [address] [id number] [address] [place] [phone] Jul, Generalized anxiety disorder F41.1 [facility] [address] [id number] [address] [place] [address] Jul, Diverticulitis K57.92 [facility] [address] [id number] [address] [place] [phone] 28 Jun, 2017 Encounter for immunization Z 23 [facility] [address] [id number] [address] [place] [phone] 22 Jun, 2017 Dental examination Z01.20 [facility] [address] [id number] [address] [place] [phone] 14 Jun, 2017 Generalized anxiety disorder F41.1 [facility] [address] [id number] [address] [place] [phone] 07 Jun, 2017 Dental examination Z01.20 [facility] [address] [id number] [address] [place] [phone] May, [facility] [address] [id number] [address] [place] [address] [phone] May, Dental examination Z01.20 [facility] [address] [id number] [address] [place] [address] [phone] May, Dental examination Z01.20 [facility] [address] [id number] [address] [place] [phone] May, Dental examination Z01.20 [facility] [address] [id number] [address] [place] [phone] May, [facility] [address] [id number] [address] [place] [address] May, Generalized anxiety disorder F41.1 [facility] [address] [id number] [address] [place] [phone] 05 May, 2017 Localized edema R60.0 ; Yeas t vaginitis B37.3 and Gastroesophageal reflux disease with esophagitis K21.0 [facility] [address] [id number] [address] [place] [id number] 26 Apr, 2017 Dental examination Z01.20 [facility] [address] [id number] [address] [address] 21 Apr, 2017 Dental examination Z01.20 [facility] [address] [id number] [address] [place] [phone] 05 Apr, 2017 Dental examination Z01.20 [facility] [address] [id number] [address] [place] [phone] Mar, Dyspepsia R10.13 [facility] [address] [id number] [address] [place] [phone] Mar, Generalized anxiety disorder F41.1 [facility] [address] [id number] [address] [place] [phone] Mar, Encounter for dental examina tion Z01.20 [facility] [address] [id number] [address] [place] [phone] Mar, [facility] [address] [id number] [address] [place] [address] [phone] Mar, Dental examination Z01.20 [facility] [address] [id number] [address] [place] [phone] Feb, Hypertension I10 and Tachyca rdia R00.0 [facility] [address] [id number] [address] [place] [phone] Feb, [facility] [address] [id number] [address] [place] [phone] Feb, Generalized anxiety disorder F41.1 [facility] [address] [id number] [address] [place] [address] [phone] Feb, Dental examination Z01.20 [facility] [address] [id number] [address] [place] [phone] Jan, Generalized anxiety disorder F41.1 [facility] [address] [id number] [address] [place] [phone] December, Generalized anxiety disorder F41.1 [facility] [address] [id number] [address] [place] [address] [phone] December, Encounter for dental examina tion Z01.20 [facility] [address] [id number] [address] [place] [phone] Nov, [facility] [address] [id number] [address] [place] [phone] Nov, [facility] [address] [id number] [address] [place] [phone] Nov, Generalized anxiety disorder F41.1 [facility] [address] [facility] [id number] [address] [place] [phone] Oct, [facility] [address] [id number] [address] [place] [address] [phone] Oct, Dental examination Z01.20 [facility] [address] [facility] [id number] [address] [place] [phone] Oct, Vaginal dryness N89.8 [facility] [address] [facility] [id number] [address] [place] [phone] Oct, Pseudoseizures F44.5 [facility] [address] [facility] [id number] [address] [place] [phone] Oct, Generalized anxiety disorder F41.1 [facility] [address] [facility] [id number] [address] [place] [phone] Sep, Abnormal uterine bleeding (A UB) N93.9 ; Vaginal dryness N89.8 and Screening breast examination Z12.39 [facility] [address] [facility] [id number] [address] [place] [phone] Sep, Dental examination Z01.20 [facility] [address] [facility] [id number] [address] [place] [phone] Sep, Generalized anxiety disorder F41.1 [facility] [address] [facility] [id number] [address] [place] [phone] 06 Sep, 2016 Unspecified ovarian cyst, ri ght side N83.201 ; Unspecified ovarian cyst, left side N83.202 ; Yeast infection of the vagina B37.3 ; Mitral valve prolapse I34.1 and Hypertension I10 [facility] [address] [facility] [id number] [address] [place] [address] Aug, Generalized anxiety disorder F41.1 [facility] [address] [facility] [id number] [address] [place] [phone] Jul, [facility] [address] [facility] [id number] [address] [place] [phone] Jul, Generalized anxiety disorder F41.1 [facility] [address] [facility] [id number] [address] [place] [phone] Jun, Generalized anxiety disorder F41.1 [facility] [address] [place] [id number] [address] [place] [phone] May, Encounter for immunization Z 23 [facility] [address] [facility] [id number] [address] [place] [phone] 17 May, 2016 Generalized anxiety disorder F41.1 and Depressive disorder, not elsewhere classified F32.9 [facility] [address] [facility] [id number] [address] [place] [phone] 28 Apr, 2016 Hypertension I10 [facility] [address] [facility] [id number] [address] [place] [phone] 22 Apr, 2016 Cervicalgia M54.2 [facility] [address] [facility] [id number] [address] [place] [phone] 12 Apr, 2016 Cervicalgia M54.2 [facility] [address] [facility] [id number] [address] [place] [phone] Mar, Generalized anxiety disorder F41.1 and Depressive disorder, not elsewhere classified F32.9 [facility] [address] [id number] [address] [place] [address] [phone] 14 Feb, 2016 Visit for dental examination Z01.20 [facility] [address] [facility] [id number] [address] [place] [phone] 11 Feb, 2016 Pseudoseizures F44.5 ; Migra ine without status migrainosus, not intractable, unspecified migraine type G43.909 and Essential hypertension I10 [facility] [address] [id number] [address] [place] [address] [id number] 06 Feb, 2016 Dental examination Z01.20 [facility] [address] [facility] [id number] [address] [place] [phone] 05 Feb, 2016 Generalized anxiety disorder F41.1 and Depressive disorder, not elsewhere classified F32.9 [facility] [address] [facility] [id number] [address] [place] [phone] 27 Jan, 2016 Tachycardia R00.0 [facility] [address] [facility] [id number] [address] [place] [phone] December, Eustachian tube dysfunction, bilateral H69.83 [facility] [address] [facility] [id number] [address] [place] [phone] December, Generalized anxiety disorder F41.1 and Depressive disorder, not elsewhere classified F32.9 [facility] [address] [facility] [id number] [address] [place] [phone] Nov, [facility] [address] [facility] [id number] [address] [place] [phone] 28 Nov, 2015 [facility] [address] [facility] [id number] [address] [place] [phone] Nov, Hypertension I10 ; Onychomyc osis B35.1 [...] and Complex cyst of left ovary N83.29 [place] [address] [place] [id number] [address] [place] [phone] 14 Nov, 2015 Sinusitis J32.9 [place] [address] [place] [id number] [address] [place] [phone] Oct, Complex cyst of left ovary N 83.29 [place] [address] [place] [id number] [address] [place] [phone] Oct, Onychomycosis B35.1 [facility] [address] [place] [id number] [address] [place] [id number] Oct, Dental examination Z01.20 [place] [address] [phone] 09 Oct, 2015 Well woman exam Z01.419 [...] R92.2 and History of colon polyps Z86.010 [place] [id number] [place] [phone] Oct, Generalized anxiety disorder F41.1 and Depressive disorder, not elsewhere classified F32.9 [place] [address] [place] [id number] [address] [place] [place] [address] Sep, Hypertension I10 and Onychom ycosis B35.1 [place] [address] [place] [id number] [address] [place] [address] 16 Sep, 2015 Skin tags, multiple acquired L91.8 [place] [address] [place] [id number] [address] [place] [address] Aug, [facility] [address] [id number] [address] [place] [address] Aug, [facility] [address] [id number] [address] [place] [address] Aug, [facility] [address] [id number] [address] [place] [address] Aug, Generalized anxiety disorder F41.1 and Depressive disorder, not elsewhere classified F32.9 [facility] [address] [id number] [address] [place] [address] Jul, Skin lesion L98.9 [facility] [address] [id number] [address] [place] [address] Jun, Generalized anxiety disorder F41.1 and Depressive disorder, not elsewhere classified F32.9 [facility] [address] [id number] [address] [place] [address] Jun, [facility] [address] [id number] [address] [place] [address] Jun, Generalized anxiety disorder F41.1 [facility] [address] [facility] [id number] [address] [place] [address] May, Encounter for immunization Z 23 and Right shoulder pain M25.511 [facility] [address] [id number] [address] [place] [address] Apr, [facility] [address] [facility] [id number] [address] [place] [address] 14 Apr, 2015 Generalized anxiety disorder 300.02 and Depressive disorder, not elsewhere classified 311 [facility] [address] [id number] [address] [place] [id number] Mar, Dental examination V72.2 [facility] [address] [id number] [address] [place] [id number] Mar, Generalized anxiety disorder 300.02 and Depressive disorder, not elsewhere classified 311 [facility] [address] [id number] [address] [place] [address] Mar, Depression, major, recurrent , 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.35 and 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 [facility] [address] [facility] [id number] [address] [place] [address] Feb, Generalized anxiety disorder 300.02 and Depressive disorder, not elsewhere classified 311 [facility] [address] [id number] [address] [place] [id number] 07 Feb, 2015 Dental examination V72.2 [facility] [address] [facility] [id number] [address] [place] [id number] 09 Jan, 2015 Generalized anxiety disorder 300.02 and Depressive disorder, not elsewhere classified 311 [facility] [address] [facility] [id number] [address] [place] [address] Jan, [facility] [address] [facility] [id number] [address] [place] [address] December, Generalized anxiety disorder 300.02 and Depressive disorder, not elsewhere classified 311 [facility] [address] [facility] [id number] [address] [place] [address] December, Major depressive disorder, r ecurrent, unspecified 296.30 and Panic disorder with agoraphobia 300.21 [facility] [address] [facility] [id number] [address] [place] [phone] Nov, [facility] [address] [facility] [id number] [address] [place] [address] Nov, [facility] [address] [facility] [id number] [address] [place] [address] Oct, [facility] [address] [facility] [id number] [address] [place] [address] Oct, [facility] [address] [facility] [id number] [address] [place] [address] Oct, [facility] [address] [place] [id number] [address] [place] [address] Oct, [facility] [address] [id number] [address] [place] [address], [place] [address] Sep, 2014 [facility] [address] [id number] [address] [place] [address], [place] [address] Sep, 2014 [facility] [address] [id number] [address] [place] [address], [place] [address] Sep, 2014 [facility] [address] [id number] [address] [place] [address], [place] [address] Sep, 2014 [facility] [address] [id number] [address] [place] [address], [place] [address] Sep, 2014 [facility] [address] [id number] [address] [place] [address], [place] [address] Sep, 2014 [facility] [address] [id number] [address] [place] [address], [place] [address] Sep, 2014 [facility] [address] [id number] [address] [place] [address], [place] [address] Sep, 2014 [facility] [address] [id number] [address] [place] [address], [place] [address] Sep, 2014 [facility] [address] [id number] [address] [place] [address], [place] [address] Sep, [facility] [address] [id number] [address] [place] [address], [place] [address] Aug, [facility] [address] [id number] [address] [place] [address] Aug, [facility] [address] [id number] [address] [place] [address], [place] [address] Jul, [facility] [address] [id number] [address] [place] [address], [place] [address] Jul, [facility] [address] [id number] [address] [place] [address], [place] [address] Jul, [facility] [address] [id number] [address] [place] [address], [place] [address] Jul, [facility] [address] [id number] [address] [place] [address], [place] [address] Jul, [facility] [address] [id number] [address] [place] [address], [place] [address] Jul, [facility] [address] [id number] [address] [place] [address], [place] [address] Jul, [facility] [address] [id number] [address] [place] [address], [place] [address] Jul, [facility] [address] [id number] [address] [place] [address], [place] [address] Jul, [facility] [address] [id number] [address] [place] [address], [place] [address] Jul, [facility] [address] [id number] [address] [place] [address], [place] [address] Jul, [facility] [address] [id number] [address] [place] [address], [place] [address] Jul, [facility] [address] [id number] [address] [place] [address], [place] [address] Jun, [facility] [address] [id number] [address] [place] [address], [place] [address] Jun, [facility] [address] [id number] [address] [place] [address], [place] [address] May, [facility] [address] [id number] [address] [place] [address], [place] [address] May, [facility] [address] [id number] [address] [place] [address], [place] [address] May, [facility] [address] [id number] [address] [place] [address], [place] [address] May, [facility] [address] [id number] [address] [place] [address], [place] [address] May, [facility] [address] [id number] [address] [place] [address], [place] [address] May, [facility] [address] [id number] [address] [place] [address], [place] [address] May, [facility] [address] [id number] [address] [place] [address], [place] [address] May, 2013 [facility] [address] [id number] [address] [place] [address], [place] [address] May, [facility] [address] [id number] [address] [place] [address], [place] [address] May, [facility] [address] [id number] [address] [place] [address], [place] [address] May, [facility] [address] [id number] [address] [place] [address], [place] [address] May, [facility] [address] [id number] [address] [place] [address], [place] [address] 30 Apr, 2013 [facility] [address] [id number] [address] [place] [address], [place] [address] 30 Apr, 2014 [facility] [address] [id number] [address] [place] [address], [place] [address] 29 Apr, 2013 [facility] [address] [id number] [address] [place] [address], [place] [address] 29 Apr, 2013 [facility] [address] [id number] [address] [place] [address], [place] [address] Apr, 2013 [facility] [address] [id number] [address] [place] [address], [place] [address] Apr, [facility] [address] [id number] [address] [place] [address], [place] [address] Feb, [facility] [address] [id number] [address] [place] [address], [place] [address] Feb, [facility] [address] [id number] [address] [place] [address], [place] [address] Feb, [facility] [address] [id number] [address] [place] [address], [place] [address] Feb, [facility] [address] [id number] [address] [place] [address], [place] [address] Feb, [facility] [address] [id number] [address] [place] [address], [place] [address] Feb, [facility] [address] [id number] [address] [place] [address], [place] [address] Jan, [facility] [address] [id number] [address] [place] [address], [place] [address] Jan, [facility] [address] [id number] [address] [place] [address], [place] [address] Jan, [facility] [address] [id number] [address] [place] [address], [place] [address] Jan, [facility] [address] [id number] [address] [place] [address], [place] [address] Jan, [facility] [address] [id number] [address] [place] [address], [place] [address] Jan, [facility] [address] [id number] [address] [place] [address], [place] [address] Jan, [facility] [address] [id number] [address] [place] [address], [place] [address] Jan, [facility] [address] [id number] [address] [place] [address], [place] [address] December, [facility] [address] [id number] [address] [place] [address], [place] [address] December, [facility] [address] [id number] [address] [place] [address], [place] [address] December, [facility] [address] [id number] [address] [place] [address], [place] [address] December, [facility] [address] [id number] [address] [place] [address], [place] [address] Nov, [facility] [address] [id number] [address] [place] [address], [place] [address] Nov, [facility] [address] [id number] [address] [place] [address], [place] [address] Nov, [facility] [address] [id number] [address] [place] [address], [place] [address] Nov, [facility] [address] [id number] [address] [place] [address], [place] [address] Nov, [facility] [address] [id number] [address] [place] [address], [place] [address] Nov, [facility] [address] [id number] [address] [place] [address], [place] [address] Nov, [facility] [address] [id number] [address] [place] [address], [place] [address] Nov, [facility] [address] [id number] [address] [place] [address], [place] [address] Oct, [facility] [address] [id number] [address] [place] [address], [place] [address] Oct, [facility] [address] [id number] [address] [place] [address], [place] [address] Sep, [facility] [address] [id number] [address] [place] [address], [place] [address] Sep, [facility] [address] [id number] [address] [place] [address], [place] [id number] Sep, [facility] [address] [id number] [address] [place] [address], [place] [address] Sep, [facility] [address] [id number] [address] [place] [address], [place] [address] Sep, [facility] [address] [id number] [address] [place] [address], [place] [address] Sep, [facility] [address] [id number] [address] [place] [address], [place] [address] Aug, [facility] [address] [id number] [address] [place] [address], [place] [address] Aug, [facility] [address] [id number] [address] [place] [address], [place] [address] Aug, [facility] [address] [id number] [address] [place] [address], [place] [address] Aug, [facility] [address] [id number] [address] [place] [address], [place] [address] Jul, [facility] [address] [id number] [address] [place] [address], [place] [address] Jul, [facility] [address] [id number] [address] [place] [address], [place] [address] Jul, [facility] [address] [id number] [address] [place] [address], [place] [address] Jul, [facility] [address] [id number] [address] [place] [address], [place] [address] Jun, [facility] [address] [id number] [address] [place] [address], [place] [address] Jun, [facility] [address] [id number] [address] [place] [address], [place] [address] May, [facility] [address] [id number] [address] [place] [address] 24 May, 2013 [facility] [address] [id number] [address] [place] [address], [place] [address] May, [facility] [address] [id number] [address] [place] [address] May, [facility] [address] [id number] [address] [place] [address], [place] [address] May, [facility] [address] [id number] [address] [place] [address], [place] [address] 17 Apr, 2013 [facility] [address] [id number] [address] [place] [address], [place] [address] 10 Apr, 2013 [facility] [address] [id number] [address] [place] [address], [place] [address] Mar, [facility] [address] [id number] [address] [place] [address], [place] [address] Mar, [facility] [address] [id number] [address] [place] [address], [place] [address] Mar, [facility] [address] [id number] [address] [place] [address], [place] [address] Mar, [facility] [address] [id number] [address] [place] [address], [place] [address] Feb, [facility] [address] [id number] [address] [place] [address], [place] [address] Feb, [facility] [address] [id number] [address] [place] [address], [place] [address] Feb, [facility] [address] [id number] [address] [place] [address], [place] [address] Feb, [facility] [address] [id number] [address] [place] [address], [place] [address] Feb, [facility] [address] [id number] [address] [place] [address], [place] [address] Jan, [facility] [address] [id number] [address] [place] [address], [place] [address] Jan, [facility] [address] [id number] [address] [place] [address], [place] [address] 14 Jan, 2013 [facility] [address] [id number] [address] [place] [address], [place] [address] Jan, [facility] [address] [id number] [address] [place] [address], [place] [address] Jan, [facility] [address] [id number] [address] [place] [address], [place] [address] December, [facility] [address] [id number] [address] [place] [address], [place] [address] December, [facility] [address] [id number] [address] [place] [address], [place] [address] Nov, [facility] [address] [id number] [address] [place] [address], [place] [address] Nov, [facility] [address] [id number] [address] [place] [address], [place] [address] Oct, [facility] [address] [id number] [address] [place] [address], [place] [address] Oct, [facility] [address] [id number] [address] [place] [address], [place] [address] Oct, [facility] [address] [id number] [address] [place] [address], [place] [address] Sep, [facility] [address] [id number] [address] [place] [address], [place] [address] Aug, [facility] [address] [id number] [address] [place] [address], [place] [address] Aug, [facility] [address] [id number] [address] [place] [address], [place] [address] Aug, [facility] [address] [id number] [address] [place] [address], [place] [address] Aug, [facility] [address] [id number] [address] [place] [address], [place] [address] Jul, [facility] [address] [id number] [address] [place] [address], [place] [address] Jul, [facility] [address] [id number] [address] [place] [address], [place] [address] Jul, [facility] [address] [id number] [address] [place] [address] Jul, [facility] [address] [id number] [address] [place] [address], [place] [address] Jul, [facility] [address] [id number] [address] [place] [address] Jul, [facility] [address] [id number] [address] [place] [address], [place] [address] Jul, [facility] [address] [id number] [address] [place] [address] Jul, [facility] [address] [id number] [address] [place] [address], [place] [address] Jun, [facility] [address] [id number] [address] [place] [address] Jun, [facility] [address] [id number] [address] [place] [address] Jun, [facility] [address] [id number] [address] [place] [id number] Jun, [facility] [address] [id number] [address] [place] [id number] Jun, [facility] [address] [id number] [address] [place] [address] Jun, [facility] [address] [id number] [address] [place] [id number] May, [facility] [address] [id number] [address] [place] [address] May, [facility] [address] [id number] [address] [place] [id number] May, [facility] [address] [id number] [address] [place] [address] May, [facility] [address] [id number] [address] [place] [address], [place] [address] Apr, [facility] [address] [id number] [address] [place] [address], [place] [address] 06 Apr, 2012 [facility] [address] [id number] [address] [place] [address], [place] [address] 08 Mar, 2012 [facility] [address] [id number] [address] [place] [address], [place] [address] 28 Jan, 2012 [facility] [address] [id number] [address] [place] [address], [place] [address] 20 Jan, 2012 [facility] [address] [id number] [address] [place] [address], [place] [address] 16 Jan, 2012 [facility] [address] [id number] [address] [place] [address], [place] [address] 15 Jan, 2012 [facility] [address] [id number] [address] [place] [address], [place] [address] 14 Jan, 2012 [facility] [address] [id number] [address] [place] [address], [place] [address] 14 Jan, 2012 [facility] [address] [id number] [address] [place] [address], [place] [address] 07 Jan, 2012 [facility] [address] [id number] [address] [place] [address], [place] [address] December, [facility] [address] [id number] [address] [place] [address], [place] [address] December, [facility] [address] [id number] [address] [place] [address], [place] [address] December, [facility] [address] [id number] [address] [place] [address], [place] [address] December, [facility] [address] [id number] [address] [place] [address], [place] [address] Nov, [facility] [address] [id number] [address] [place] [address], [place] [address] Nov, [facility] [address] [id number] [address] [place] [address], [place] [address] Oct, [facility] [address] [id number] [address] [place] [address], [place] [address] 28 Oct, 2011 [facility] [address] [id number] [address] [place] [address], [place] [address] Oct, [facility] [address] [id number] [address] [place] [address], [place] [address] Sep, [facility] [address] [id number] [address] [place] [address], [place] [address] Sep, [facility] [address] [id number] [address] [place] [address], [place] [address] Sep, [facility] [address] [id number] [address] [place] [address], [place] [address] Aug, [facility] [address] [id number] [address] [place] [address], [place] [address] Aug, [facility] [address] [id number] [address] [place] [address], [place] [address] Aug, [facility] [address] [id number] [address] [place] [address], [place] [address] Aug, [facility] [address] [id number] [address] [place] [address], [place] [address] Aug, [facility] [address] [id number] [address] [place] [address], [place] [address] Aug, [facility] [address] [id number] [address] [place] [address], [place] [address] Aug, [facility] [address] [id number] [address] [place] [address], [place] [address] Jul, [facility] [address] [id number] [address] [place] [address], [place] [address] Jul, [facility] [address] [id number] [address] [place] [address], [place] [address] Jun, [facility] [address] [id number] [address] [place] [address], [place] [address] 28 Jun, 2011 [facility] [address] [id number] [address] [place] [address], [place] [address] 17 Jun, 2011 [facility] [address] [id number] [address] [place] [address], [place] [address] 15 Jun, 2011 [facility] [address] [id number] [address] [place] [address], [place] [address] 14 Jun, 2011 [facility] [address] [id number] [address] [place] [address], [place] [address] 14 Jun, 2011 [facility] [address] [id number] [address] [place] [address], [place] [address] 07 Jun, 2011 [facility] [address] [id number] [address] [place] [address], [place] [address] Jun, [facility] [address] [id number] [address] [place] [address], [place] [address] Jun, [facility] [address] [id number] [address] [place] [address], [place] [address] Jun, [facility] [address] [id number] [address] [place] [address], [place] [address] 31 May, 2011 [facility] [address] [id number] [address] [place] [address], [place] [address] 31 May, 2011 [facility] [address] [id number] [address] [place] [address], [place] [address] 25 May, 2011 [facility] [address] [id number] [address] [place] [address], [place] [address] 24 May, 2011 [facility] [address] [id number] [address] [place] [address], [place] [address] 18 May, 2011 [facility] [address] [id number] [address] [place] [address], [place] [address] 13 May, 2011 [facility] [address] [id number] [address] [place] [id number] 13 Feb, 2011 [facility] [address] [id number] [address] [place] [phone] December, [facility] [address] [id number] [address] [place] [phone] Jul, [facility] [address] [id number] [address] [place] [id number] Jul, [facility] [address] [id number] [address] [place] [id number] Jul, [facility] [address] [id number] [address] [place] [id number] Jul, [facility] [address] [id number] [address] [place] [phone] Jun, [facility] [address] [id number] [address] [place] [phone] Jul, [facility] [address] [id number] [address] [place] [phone] Jul, [facility] [address] [id number] [address] [place] [id number] Jul, [facility] [address] [id number] [address] [place] [address] Jul, [facility] [address] [id number] [address] [place] [phone] Jul, [facility] [address] [id number] [address] [place] [phone] Jul, [facility] [address] [id number] [address] [place] [phone] 15 Jan, 2009 [facility] [address] [id number] [address] [place] [id number] 16 Sep, 2008 [facility] [address] [id number] [address] [place] [phone] 11 Sep, 2008 IMMUNIZATIONS No Known Immunizations SOCIAL HISTORY Never Assessed REASON FOR VISIT PLAN OF CARE VITAL SIGNS Height 66 in 2014-07-28 Weight 211.1 lbs 2014-07-28 Temperature 97.1 degrees Fahrenheit 2014-07-28 Heart Rate 88 bpm 2014-07-28 Respiratory Rate 18 2014-07-28 Blood pressure systolic 138 mmHg 2014-07-28 Blood pressure diastolic 82 mmHg 2014-07-28 MEDICATIONS Unknown Medications RESULTS No Results PROCEDURES Procedure Date Ordered Result Body Site CT ABDOMEN&PELVIS W/CONTRAST Jul 28, 2014 COMPLETE CBC W/AUTO DIFF WBC Jul 28, 2014 INSTRUCTIONS MEDICATIONS ADMINISTERED No Known Medications [...]
--- OUTSIDE RECORDS SUMMARY | 2020-01-27 10:17 | XMS REPORT ---
Author Author Silvia WILKINS Organization [facility] Address [address] [place] [address] Care Team Providers Care Tumor Registrar Name Role Phone LETTY WILKINS Unavailable PROBLEMS Type Condition ICD9-CM Code OUL57-WH Code Onset Dates Condition S tatus SNOMED Code Problem Hypertension I10 Active 3564747 3 Problem Generalized anxiety disorder F41.1 A ctive 701324376 Problem History of colon polyps Z86.010 Active 630751938 Problem History of diverticulitis Z87.19 Acti ve [id number] Problem Family history of diabetes mellitus Z83.3 Active 395340912 Problem Excessive and frequent menstruation with irregular cycle N92.1 Active 955714280 Problem Hot flashes N95.1 Active 48482721 8 Problem Gastroesophageal reflux disease with esophagitis K 21.0 Active 074952035 Problem History of ovarian cyst Z87.42 Active 08176244 Problem Diverticulitis K57.92 Active 88856 6006 Problem Dense breast tissue R92.2 Active 496248351 Problem Perimenopausal N95.1 Active 31549 1281993459 Problem Mitral valve prolapse I34.1 Active 175750750 Problem Abnormal uterine bleeding (AUB) N93.9 Active 41000288465300 Problem Tachycardia R00.0 Active 3332732 ALLERGIES No Information ENCOUNTERS Encounter Location Date Diagnosis [facility] [address] [facility] [id number] [address] [place] [address] Mar, [facility] [address] [facility] [id number] [address] [place] [address] Mar, [facility] [address] [facility] [id number] [address] [place] [address] Feb, [facility] [address] [facility] [id number] [address] [place] [address] Feb, Generalized anxiety disorder F41.1 [facility] [address] [id number] [address] [place] [address] Feb, Generalized anxiety disorder F41.1 and Bereavement Z63.4 [facility] [address] [id number] [address] [place] [address] Jan, [facility] [address] [facility] [id number] [address] [place] [address] Jan, Breast cancer screening by trenton crenshaw Z12.31 [facility] [address] [id number] [address] [place] [address] Jan, Generalized anxiety disorder F41.1 and Bereavement Z63.4 [facility] [address] [id number] [address] [place] [address] Jan, [facility] [address] [facility] [id number] [address] [place] [address] December, Generalized anxiety disorder F41.1 and Bereavement Z63.4 [facility] [address] [facility] [id number] [address] [place] [address] December, Diverticulitis K57.92 ; Dysu nick R30.0 ; Other constipation K59.09 and Lower abdominal pain R10.30 [facility] [address] [facility] [id number] [address] [place] [address] Nov, Diverticulitis K57.92 [facility] [address] [facility] [id number] [address] [place] [address] Nov, Generalized anxiety disorder F41.1 and Bereavement Z63.4 [facility] [address] [facility] [id number] [address] [place] [address] Nov, Generalized anxiety disorder F41.1 and Bereavement Z63.4 [facility] [address] [facility] [id number] [address] [place] [address] Nov, Diverticulitis K57.92 [facility] [address] [facility] [id number] [address] [place] [address] Oct, Diverticulitis K57.92 [facility] [address] [facility] [id number] [address] [place] [address] Oct, Diverticulitis K57.92 [facility] [address] [facility] [id number] [address] [place] [address] Oct, Generalized anxiety disorder F41.1 [facility] [address] [facility] [id number] [address] [place] [address] Oct, Right lower quadrant abdomin al pain R10.31 and Diverticulitis K57.92 [facility] [address] [facility] [id number] [address] [place] [address] Sep, Generalized anxiety disorder F41.1 and Bereavement Z63.4 [facility] [address] [facility] [id number] [address] [place] [address] Aug, [facility] [address] [facility] [id number] [address] [place] [address] Aug, Generalized anxiety disorder F41.1 and Bereavement Z63.4 [facility] [address] [id number] [address] [address] Aug, Caries K02.9 [facility] [address] [facility] [id number] [address] [place] [address] Jul, Generalized anxiety disorder F41.1 and Bereavement Z63.4 [facility] [address] [facility] [id number] [address] [place] [address] Jul, Other acute gastritis withou t hemorrhage K29.00 ; Generalized anxiety disorder F41.1 ; Tachycardia R00.0 and Essential hypertension I10 [facility] [address] [facility] [id number] [address] [place] [address] Jul, Generalized anxiety disorder F41.1 and Bereavement Z63.4 [facility] [address] [facility] [id number] [address] [place] [address] Jun, Generalized anxiety disorder F41.1 and Bereavement Z63.4 [facility] [address] [facility] [id number] [address] [place] [address] Jun, Generalized anxiety disorder F41.1 and Bereavement Z63.4 [facility] [address] [id number] [address] [place] [address] Jun, Dental examination Z01.20 [facility] [address] [facility] [id number] [address] [place] [address] May, Generalized anxiety disorder F41.1 and Bereavement Z63.4 [facility] [address] [facility] [id number] [address] [place] [address] 08 May, 2018 Encounter for immunization Z 23 [facility] [address] [facility] [id number] [address] [place] [address] May, Generalized anxiety disorder F41.1 and Bereavement Z63.4 [facility] [address] [facility] [id number] [address] [place] [address] May, [facility] [address] [facility] [id number] [address] [place] [address] 24 Apr, 2018 Generalized anxiety disorder F41.1 and Bereavement Z63.4 [facility] [address] [facility] [id number] [address] [place] [address] 17 Apr, 2018 [facility] [address] [facility] [id number] [address] [place] [address] 13 Apr, 2018 Diverticulitis K57.92 [facility] [address] [facility] [id number] [address] [place] [address] 10 Apr, 2018 Generalized anxiety disorder F41.1 and Bereavement Z63.4 [facility] [address] [facility] [id number] [address] [place] [address] Mar, [facility] [address] [facility] [id number] [address] [place] [address] Mar, Diverticulitis K57.92 [facility] [address] [facility] [id number] [address] [place] [address] Mar, Generalized anxiety disorder F41.1 and Bereavement Z63.4 [facility] [address] [facility] [id number] [address] [place] [address] Mar, Hypertension I10 [facility] [address] [facility] [id number] [address] [place] [address] Mar, Generalized anxiety disorder F41.1 and Bereavement Z63.4 [facility] [address] [facility] [id number] [address] [place] [address] Feb, Generalized anxiety disorder F41.1 and Bereavement Z63.4 [facility] [address] [facility] [id number] [address] [place] [address] Feb, [facility] [address] [facility] [id number] [address] [place] [address] Feb, Generalized anxiety disorder F41.1 and Bereavement Z63.4 [facility] [address] [facility] [id number] [address] [place] [address] Feb, Generalized anxiety disorder F41.1 and Bereavement Z63.4 [facility] [address] [facility] [id number] [address] [place] [address] Jan, Hypertension I10 and Acute n on-recurrent maxillary sinusitis J01.00 [facility] [address] [facility] [id number] [address] [place] [address] December, [facility] [address] [facility] [id number] [address] [place] [address] December, Hypertension I10 [facility] [address] [facility] [id number] [address] [place] [address] December, Generalized anxiety disorder F41.1 [facility] [address] [facility] [address] [id number] [address] [address] 16 Oct, 2017 Encounter for dental examina tion Z01.20 [facility] [address] [id number] [address] [place] [address] 06 Oct, 2017 Encounter for dental examina tion Z01.20 [facility] [address] [id number] [address] [address] 02 Oct, 2017 Dental examination Z01.20 [facility] [address] [id number] [address] [place] [address] Oct, Generalized anxiety disorder F41.1 [facility] [address] [id number] [address] [place] [address] Aug, Dental examination Z01.20 [facility] [address] [id number] [address] [place] [address] Aug, Generalized anxiety disorder F41.1 [facility] [address] [id number] [address] [place] [address] Aug, [facility] [address] [id number] [address] [place] [address] Aug, Encounter for dental examina tion Z01.20 [facility] [address] [id number] [address] [place] [address] Aug, Subacute maxillary sinusitis J01.00 [facility] [address] [id number] [address] [place] [address] Jul, Dental examination Z01.20 [facility] [address] [id number] [address] [place] [address] Jul, Generalized anxiety disorder F41.1 [facility] [address] [id number] [address] [place] [address] Jul, Diverticulitis K57.92 [facility] [address] [id number] [address] [place] [address] 28 Nov, 2017 Encounter for immunization Z 23 [facility] [address] [id number] [address] [address] 22 Jun, 2017 Dental examination Z01.20 [facility] [address] [id number] [address] [place] [address] 14 Jun, 2017 Generalized anxiety disorder F41.1 [facility] [address] [id number] [address] [place] [address] 07 Jun, 2017 Dental examination Z01.20 [facility] [address] [id number] [address] [place] [address] May, [facility] [address] [id number] [address] [place] [id number] May, Dental examination Z01.20 [facility] [address] [id number] [address] [place] [id number] May, Dental examination Z01.20 [facility] [address] [id number] [address] [place] [address] May, Dental examination Z01.20 [facility] [address] [id number] [address] [place] [address] May, [facility] [address] [id number] [address] [place] [address] May, Generalized anxiety disorder F41.1 [facility] [address] [id number] [address] [place] [address] 05 May, 2017 Localized edema R60.0 ; Yeas t vaginitis B37.3 and Gastroesophageal reflux disease with esophagitis K21.0 [facility] [address] [id number] [address] [place] [id number] Apr, Dental examination Z01.20 [facility] [address] [id number] [address] [address] Apr, Dental examination Z01.20 [facility] [address] [id number] [address] [place] [address] 05 Apr, 2017 Dental examination Z01.20 [facility] [address] [id number] [address] [place] [address] Mar, Dyspepsia R10.13 [facility] [address] [id number] [address] [place] [address] Mar, Generalized anxiety disorder F41.1 [facility] [address] [id number] [address] [place] [address] Mar, Encounter for dental examina tion Z01.20 [facility] [address] [id number] [address] [place] [address] [id number] Mar, [facility] [address] [id number] [address] [place] [phone] Mar, Dental examination Z01.20 [facility] [address] [id number] [address] [place] [address] Feb, Hypertension I10 and Tachyca rdia R00.0 [facility] [address] [id number] [address] [place] [address] Feb, [facility] [address] [id number] [address] [place] [address] Feb, Generalized anxiety disorder F41.1 [facility] [address] [id number] [address] [place] [address] [id number] Feb, Dental examination Z01.20 [facility] [address] [id number] [address] [place] [address] Jan, Generalized anxiety disorder F41.1 [facility] [address] [id number] [address] [place] [address] December, Generalized anxiety disorder F41.1 [facility] [address] [id number] [address] [place] [address] [phone] December, Encounter for dental examina tion Z01.20 [facility] [address] [id number] [address] [place] [address] Nov, [facility] [address] [address] Nov, [facility] [address] [address] Nov, Generalized anxiety disorder F41.1 [facility] [address] [address] Oct, [facility] [address] [facility] [id number] [address] [place] [address] [id number] Oct, Dental examination Z01.20 [place] [address] [address] Oct, Vaginal dryness N89.8 [place] [address] [address] Oct, Pseudoseizures F44.5 [place] [address] [address] Oct, Generalized anxiety disorder F41.1 [place] [address] [address] 28 Sep, 2016 Abnormal uterine bleeding (A UB) N93.9 ; Vaginal dryness N89.8 and Screening breast examination Z12.39 [place] [address] [address] Sep, Dental examination Z01.20 [place] [address] [place] [id number] [address] [place] [address] Sep, Generalized anxiety disorder F41.1 [place] [address] [address] 06 Sep, 2016 Unspecified ovarian cyst, ri ght side N83.201 ; Unspecified ovarian cyst, left side N83.202 ; Yeast infection of the vagina B37.3 ; Mitral valve prolapse I34.1 and Hypertension I10 [place] [address] [id number] [address] [place] [address] Aug, Generalized anxiety disorder F41.1 [facility] [address] [facility] [id number] [address] [place] [address] 28 Jul, 2016 [facility] [address] [facility] [id number] [address] [place] [address] Jul, Generalized anxiety disorder F41.1 [facility] [address] [facility] [id number] [address] [place] [address] Jun, Generalized anxiety disorder F41.1 [facility] [address] [facility] [id number] [address] [place] [address] 28 May, 2016 Encounter for immunization Z 23 [facility] [address] [facility] [id number] [address] [place] [address] 17 May, 2016 Generalized anxiety disorder F41.1 and Depressive disorder, not elsewhere classified F32.9 [facility] [address] [facility] [id number] [address] [place] [address] 28 Apr, 2016 Hypertension I10 [facility] [address] [facility] [id number] [address] [place] [address] 22 Apr, 2016 Cervicalgia M54.2 [facility] [address] [facility] [id number] [address] [place] [address] 12 Apr, 2016 Cervicalgia M54.2 [facility] [address] [facility] [id number] [address] [place] [address] 09 Mar, 2016 Generalized anxiety disorder F41.1 and Depressive disorder, not elsewhere classified F32.9 [facility] [address] [id number] [address] [place] [address] [id number] 14 Feb, 2016 Visit for dental examination Z01.20 [facility] [address] [facility] [id number] [address] [place] [address] 11 Feb, 2016 Pseudoseizures F44.5 ; Migra ine without status migrainosus, not intractable, unspecified migraine type G43.909 and Essential hypertension I10 [facility] [address] [id number] [address] [place] [id number] 06 Feb, 2016 Dental examination Z01.20 [facility] [address] [facility] [id number] [address] [place] [address] Feb, Generalized anxiety disorder F41.1 and Depressive disorder, not elsewhere classified F32.9 [facility] [address] [facility] [id number] [address] [place] [address] Jan, Tachycardia R00.0 [place] [address] [facility] [id number] [address] [place] [address] December, Eustachian tube dysfunction, bilateral H69.83 [place] [address] [facility] [id number] [address] [place] [address] December, Generalized anxiety disorder F41.1 and Depressive disorder, not elsewhere classified F32.9 [place] [address] [place] [id number] [address] [place] [address] Nov, [place] [address] [place] [id number] [address] [place] [address] Nov, [place] [address] [place] [id number] [address] [place] [address] Nov, Hypertension I10 ; Onychomyc osis B35.1 [...] and Complex cyst of left ovary N83.29 [facility] [address] [facility] [id number] [address] [place] [address] 14 Nov, 2015 Sinusitis J32.9 [facility] [address] [facility] [id number] [address] [place] [address] Oct, Complex cyst of left ovary N 83.29 [facility] [address] [facility] [id number] [address] [place] [address] Oct, Onychomycosis B35.1 [facility] [address] [id number] [address] [place] [address] [id number] 17 Oct, 2015 Dental examination Z01.20 [facility] [address] [facility] [id number] [address] [place] [address] 09 Oct, 2015 Well woman exam Z01.419 [...] R92.2 and History of colon polyps Z86.010 [facility] [address] [facility] [id number] [address] [place] [address] Oct, Generalized anxiety disorder F41.1 and Depressive disorder, not elsewhere classified F32.9 [place] [address] [place] [id number] [address] [place] [address] Sep, Hypertension I10 and Onychom ycosis B35.1 [place] [address] [facility] [id number] [address] [place] [address] 16 Sep, 2015 Skin tags, multiple acquired L91.8 [facility] [address] [facility] [id number] [address] [place] [address] Aug, [place] [address] [facility] [id number] [address] [place] [address] Aug, [place] [address] [facility] [id number] [address] [place] [address] Aug, [place] [address] [place] [id number] [address] [place] [address] Aug, Generalized anxiety disorder F41.1 and Depressive disorder, not elsewhere classified F32.9 [facility] [address] [id number] [address] [place] [address] Jul, Skin lesion L98.9 [facility] [address] [id number] [address] [place] [address] Jun, Generalized anxiety disorder F41.1 and Depressive disorder, not elsewhere classified F32.9 [facility] [address] [id number] [address] [place] [address] Jun, [facility] [address] [id number] [address] [place] [address] Jun, Generalized anxiety disorder F41.1 [facility] [address] [facility] [id number] [address] [place] [address] May, Encounter for immunization Z 23 and Right shoulder pain M25.511 [facility] [address] [id number] [address] [place] [id number] Apr, [facility] [address] [id number] [address] [place] [id number] 14 Apr, 2015 Generalized anxiety disorder 300.02 and Depressive disorder, not elsewhere classified 311 [facility] [address] [id number] [address] [place] [id number] Mar, Dental examination V72.2 [facility] [address] [id number] [address] [place] [id number] Mar, Generalized anxiety disorder 300.02 and Depressive disorder, not elsewhere classified 311 [facility] [address] [id number] [address] [place] [id number] Mar, Depression, major, recurrent , 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.35 and 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 [facility] [address] [id number] [address] [place] [phone] Feb, Generalized anxiety disorder 300.02 and Depressive disorder, not elsewhere classified 311 [facility] [address] [id number] [address] [place] [id number] Feb, 2015 Dental examination V72.2 [facility] [address] [facility] [id number] [address] [place] [id number] 09 Jan, 2015 Generalized anxiety disorder 300.02 and Depressive disorder, not elsewhere classified 311 [facility] [address] [facility] [id number] [address] [place] [id number] Jan, [facility] [address] [facility] [id number] [address] [place] [phone] December, Generalized anxiety disorder 300.02 and Depressive disorder, not elsewhere classified 311 [facility] [address] [facility] [id number] [address] [place] [address] December, Major depressive disorder, r ecurrent, unspecified 296.30 and Panic disorder with agoraphobia 300.21 [facility] [address] [facility] [id number] [address] [place] [address] Nov, [facility] [address] [facility] [id number] [address] [place] [address] Nov, [facility] [address] [facility] [id number] [address] [place] [address] Oct, [facility] [address] [facility] [id number] [address] [place] [address] Oct, [facility] [address] [facility] [id number] [address] [place] [address] Oct, [facility] [address] [facility] [id number] [address] [place] [address] Oct, [facility] [address] [facility] [id number] [address] [place] [address] Sep, [facility] [address] [facility] [id number] [address] [place] [address] Sep, [facility] [address] [facility] [id number] [address] [place] [address] Sep, 2014 [facility] [address] [id number] [address] [place] [address], [place] [address] Sep, 2014 [facility] [address] [id number] [address] [place] [address], [place] [address] Sep, 2014 [facility] [address] [id number] [address] [place] [address], [place] [address] Sep, 2014 [facility] [address] [id number] [address] [place] [address], [place] [address] Sep, 2014 [facility] [address] [id number] [address] [place] [address], [place] [address] Sep, 2014 [facility] [address] [id number] [address] [place] [address], [place] [address] Sep, 2014 [facility] [address] [id number] [address] [place] [address], [place] [address] Sep, 2014 [facility] [address] [id number] [address] [place] [address], [place] [address] Aug, [facility] [address] [id number] [address] [place] [address], [place] [address] Aug, [facility] [address] [id number] [address] [place] [address], [place] [address] Jul, [facility] [address] [id number] [address] [place] [address], [place] [address] Jul, [facility] [address] [id number] [address] [place] [address], [place] [address] 18 Jul, 2014 [facility] [address] [id number] [address] [place] [address], [place] [address] Jul, [facility] [address] [id number] [address] [place] [address], [place] [address] Jul, [facility] [address] [id number] [address] [place] [address], [place] [address] Jul, [facility] [address] [id number] [address] [place] [address], [place] [address] 05 Jul, 2014 [facility] [address] [id number] [address] [place] [address], [place] [address] Jul, [facility] [address] [id number] [address] [place] [address], [place] [address] Jul, [facility] [address] [id number] [address] [place] [address], [place] [address] Jul, [facility] [address] [id number] [address] [place] [address], [place] [address] Jul, [facility] [address] [id number] [address] [place] [address], [place] [address] Jul, [facility] [address] [id number] [address] [place] [address], [place] [address] Jun, [facility] [address] [id number] [address] [place] [address], [place] [address] Jun, [facility] [address] [id number] [address] [place] [address], [place] [address] May, [facility] [address] [id number] [address] [place] [address], [place] [address] May, [facility] [address] [id number] [address] [place] [address], [place] [address] May, [facility] [address] [id number] [address] [place] [address], [place] [address] May, [facility] [address] [id number] [address] [place] [address], [place] [address] May, [facility] [address] [id number] [address] [place] [address], [place] [address] May, [facility] [address] [id number] [address] [place] [address], [place] [address] May, [facility] [address] [id number] [address] [place] [address], [place] [address] May, [facility] [address] [id number] [address] [place] [address], [place] [address] May, [facility] [address] [id number] [address] [place] [address], [place] [address] May, [facility] [address] [id number] [address] [place] [address], [place] [address] May, [facility] [address] [id number] [address] [place] [address], [place] [address] May, [facility] [address] [id number] [address] [place] [address], [place] [address] 30 Apr, 2014 [facility] [address] [id number] [address] [place] [address], [place] [address] 30 Apr, 2014 [facility] [address] [id number] [address] [place] [address], [place] [address] Apr, 2013 [facility] [address] [id number] [address] [place] [address], [place] [address] Apr, [facility] [address] [id number] [address] [place] [address], [place] [address] Apr, [facility] [address] [id number] [address] [place] [address], [place] [address] Apr, [facility] [address] [id number] [address] [place] [address], [place] [address] Feb, [facility] [address] [id number] [address] [place] [address], [place] [address] Feb, [facility] [address] [id number] [address] [place] [address], [place] [address] Feb, [facility] [address] [id number] [address] [place] [address], [place] [address] Feb, [facility] [address] [id number] [address] [place] [address], [place] [address] Feb, [facility] [address] [id number] [facility] [place] [address] Feb, [facility] [address] [id number] [address] [place] [address], [place] [address] Jan, [facility] [address] [id number] [facility] [place] [address] Jan, [facility] [address] [id number] [address] [place] [address], [place] [address] Jan, [facility] [address] [id number] [address] [place] [address], [place] [address] Jan, [facility] [address] [id number] [address] [place] [address], [place] [address] Jan, [facility] [address] [id number] [address] [place] [address], [place] [address] Jan, [facility] [address] [id number] [address] [place] [address], [place] [address] Jan, [facility] [address] [id number] [address] [place] [address], [place] [address] Jan, [facility] [address] [id number] [address] [place] [address], [place] [address] December, [facility] [address] [id number] [address] [place] [address], [place] [address] December, [facility] [address] [id number] [address] [place] [address], [place] [address] December, [facility] [address] [id number] [address] [place] [address], [place] [address] December, [facility] [address] [id number] [address] [place] [address], [place] [address] Nov, [facility] [address] [id number] [address] [place] [address], [place] [address] Nov, [facility] [address] [id number] [address] [place] [address], [place] [address] Nov, [facility] [address] [id number] [address] [place] [address], [place] [address] Nov, [facility] [address] [id number] [address] [place] [address], [place] [address] Nov, [facility] [address] [id number] [address] [place] [address], [place] [address] Nov, [facility] [address] [id number] [address] [place] [address], [place] [address] Nov, [facility] [address] [id number] [address] [place] [address], [place] [address] Nov, [facility] [address] [id number] [address] [place] [address], [place] [address] Oct, [facility] [address] [id number] [address] [place] [address], [place] [address] Oct, [facility] [address] [id number] [address] [place] [address], [place] [address] Sep, [facility] [address] [id number] [address] [place] [address], [place] [address] Sep, [facility] [address] [id number] [address] [place] [id number] Sep, [facility] [address] [id number] [address] [place] [address], [place] [address] Sep, [facility] [address] [id number] [address] [place] [address] Sep, [facility] [address] [id number] [address] [place] [address], [place] [address] Sep, [facility] [address] [id number] [address] [place] [address], [place] [address] Aug, [facility] [address] [id number] [address] [place] [address], [place] [address] Aug, [facility] [address] [id number] [address] [place] [address], [place] [address] Aug, [facility] [address] [id number] [address] [place] [address], [place] [address] Aug, [facility] [address] [id number] [address] [place] [address], [place] [address] Jul, [facility] [address] [id number] [address] [place] [address], [place] [address] Jul, [facility] [address] [id number] [address] [place] [address], [place] [address] Jul, [facility] [address] [id number] [address] [place] [address], [place] [address] Jul, [facility] [address] [id number] [address] [place] [address], [place] [address] Jun, [facility] [address] [id number] [address] [place] [address], [place] [address] Jun, [facility] [address] [id number] [address] [place] [address], [place] [address] May, [facility] [address] [id number] [address] [place] [address], [place] [address] 24 May, 2013 [facility] [address] [id number] [address] [place] [address], [place] [address] May, [facility] [address] [id number] [address] [place] [address], [place] [address] May, [facility] [address] [id number] [address] [place] [address], [place] [address] May, [facility] [address] [id number] [address] [place] [address], [place] [address] 17 Apr, 2013 [facility] [address] [id number] [address] [place] [address], [place] [address] Apr, [facility] [address] [id number] [address] [place] [address], [place] [address] Mar, [facility] [address] [id number] [address] [place] [address], [place] [address] Mar, [facility] [address] [id number] [address] [place] [address], [place] [address] Mar, [facility] [address] [id number] [address] [place] [address], [place] [address] Mar, [facility] [address] [id number] [address] [place] [address], [place] [address] Feb, [facility] [address] [id number] [address] [place] [address], [place] [address] Feb, [facility] [address] [id number] [address] [place] [address], [place] [address] Feb, [facility] [address] [id number] [address] [place] [address], [place] [address] Feb, [facility] [address] [id number] [address] [place] [address], [place] [address] Feb, [facility] [address] [id number] [address] [place] [address], [place] [address] Jan, [facility] [address] [id number] [address] [place] [address], [place] [address] Jan, [facility] [address] [id number] [address] [place] [address], [place] [address] Jan, [facility] [address] [id number] [address] [place] [address], [place] [address] Jan, [facility] [address] [id number] [address] [place] [address], [place] [address] Jan, [facility] [address] [id number] [address] [place] [address], [place] [address] December, [facility] [address] [id number] [address] [place] [address], [place] [address] December, [facility] [address] [id number] [address] [place] [address], [place] [address] 17 Nov, 2012 [facility] [address] [id number] [address] [place] [address], [place] [address] 02 Nov, 2012 [facility] [address] [id number] [address] [place] [address], [place] [address] 19 Oct, 2012 [facility] [address] [id number] [address] [place] [address], [place] [address] 13 Oct, 2012 [facility] [address] [id number] [address] [place] [address], [place] [address] 05 Oct, 2012 [facility] [address] [id number] [address] [place] [address], [place] [address] 14 Sep, 2012 [facility] [address] [id number] [address] [place] [address], [place] [address] 24 Aug, 2012 [facility] [address] [id number] [address] [place] [address], [place] [address] 16 Aug, 2012 [facility] [address] [id number] [address] [place] [address], [place] [address] 15 Aug, 2012 [facility] [address] [id number] [address] [place] [address], [place] [address] Aug, [facility] [address] [id number] [address] [place] [address], [place] [address] Jul, [facility] [address] [id number] [address] [place] [address], [place] [address] Jul, [facility] [address] [id number] [address] [place] [address], [place] [address] Jul, [facility] [address] [id number] [address] [place] [address], [place] [address] Jul, [facility] [address] [id number] [address] [place] [address], [place] [address] Jul, [facility] [address] [id number] [address] [place] [address], [place] [address] Jul, [facility] [address] [id number] [address] [place] [address], [place] [address] Jul, [facility] [address] [id number] [address] [place] [address], [place] [address] Jul, [facility] [address] [id number] [address] [place] [address], [place] [address] Jun, [facility] [address] [id number] [address] [place] [address], [place] [address] Jun, [facility] [address] [id number] [address] [place] [address], [place] [address] Jun, [facility] [address] [id number] [address] [place] [address], [place] [address] Jun, [facility] [address] [id number] [address] [place] [address], [place] [address] Jun, [facility] [address] [id number] [address] [place] [address], [place] [address] Jun, [facility] [address] [id number] [address] [place] [address], [place] [address] May, [facility] [address] [id number] [address] [place] [address], [place] [address] May, [facility] [address] [id number] [address] [place] [address], [place] [address] May, [facility] [address] [id number] [address] [place] [address], [place] [address] May, [facility] [address] [id number] [address] [place] [address], [place] [address] Apr, [facility] [address] [id number] [address] [place] [address], [place] [address] Apr, [facility] [address] [id number] [address] [place] [address], [place] [address] Mar, [facility] [address] [id number] [address] [place] [address], [place] [address] Jan, [facility] [address] [id number] [address] [place] [address], [place] [address] 20 Jan, 2012 [facility] [address] [id number] [address] [place] [address], [place] [address] 16 Jan, 2012 [facility] [address] [id number] [address] [place] [address], [place] [address] 15 Jan, 2012 [facility] [address] [id number] [address] [place] [address], [place] [address] 14 Jan, 2012 [facility] [address] [id number] [address] [place] [address], [place] [address] 14 Jan, 2012 [facility] [address] [id number] [address] [place] [address], [place] [address] 07 Jan, 2012 [facility] [address] [id number] [address] [place] [address], [place] [address] December, [facility] [address] [id number] [address] [place] [address], [place] [address] December, [facility] [address] [id number] [address] [place] [address], [place] [address] December, [facility] [address] [id number] [address] [place] [address], [place] [address] December, [facility] [address] [id number] [address] [place] [address], [place] [address] Nov, [facility] [address] [id number] [address] [place] [address], [place] [address] 05 Nov, 2011 [facility] [address] [id number] [address] [place] [address], [place] [id number] 29 Oct, 2011 [facility] [address] [id number] [address] [place] [address], [place] [id number] 28 Oct, 2011 [facility] [address] [id number] [address] [place] [address], [place] [address] 15 Oct, 2011 [facility] [address] [id number] [address] [place] [address], [place] [address] Sep, [facility] [address] [id number] [address] [place] [address], [place] [address] Sep, [facility] [address] [id number] [address] [place] [address], [place] [address] Sep, [facility] [address] [id number] [address] [place] [address], [place] [address] Aug, [facility] [address] [id number] [address] [place] [address], [place] [address] Aug, [facility] [address] [id number] [address] [place] [address], [place] [address] Aug, [facility] [address] [id number] [address] [place] [address], [place] [address] Aug, [facility] [address] [id number] [address] [place] [address], [place] [address] Aug, [facility] [address] [id number] [address] [place] [address], [place] [address] Aug, [facility] [address] [id number] [address] [place] [address], [place] [address] Aug, [facility] [address] [id number] [address] [place] [address], [place] [address] Jul, [facility] [address] [id number] [address] [place] [address], [place] [address] Jul, [facility] [address] [id number] [address] [place] [address], [place] [address] Jun, [facility] [address] [id number] [address] [place] [address], [place] [address] Jun, [facility] [address] [id number] [address] [place] [address], [place] [address] 17 Jun, 2011 [facility] [address] [id number] [address] [place] [address], [place] [address] 15 Jun, 2011 [facility] [address] [id number] [address] [place] [address], [place] [address] 14 Jun, 2011 [facility] [address] [id number] [address] [place] [address], [place] [address] 14 Jun, 2011 [facility] [address] [id number] [address] [place] [address], [place] [address] 07 Jun, 2011 [facility] [address] [id number] [address] [place] [address], [place] [address] Jun, [facility] [address] [id number] [address] [place] [address], [place] [address] Jun, [facility] [address] [id number] [address] [place] [address], [place] [address] Jun, [facility] [address] [id number] [address] [place] [address], [place] [address] May, [facility] [address] [id number] [address] [place] [address], [place] [address] May, [facility] [address] [id number] [address] [place] [address], [place] [address] May, [facility] [address] [id number] [address] [place] [address], [place] [address] 24 May, 2011 [facility] [address] [id number] [address] [place] [address], [place] [address] May, [facility] [address] [id number] [address] [place] [address], [place] [address] May, [facility] [address] [id number] [address] [place] [address], [place] [address] Feb, [facility] [address] [id number] [address] [place] [address], [place] [address] December, [facility] [address] [id number] [address] [place] [address], [place] [address] Jul, [facility] [address] [id number] [address] [place] [address], [place] [address] 29 Jul, 2010 [facility] [address] [id number] [address] [place] [id number] Jul, [facility] [address] [id number] [address] [place] [id number] Jul, [facility] [address] [id number] [address] [place] [id number] Jun, [facility] [address] [id number] [address] [place] [id number] Jul, [facility] [address] [id number] [address] [place] [id number] Jul, [facility] [address] [id number] [address] [place] [id number] Jul, [facility] [address] [id number] [address] [place] [id number] Jul, [facility] [address] [id number] [address] [place] [id number] Jul, [facility] [address] [id number] [address] [place] [id number] Jul, [facility] [address] [id number] [address] [place] [id number] Jan, [facility] [address] [id number] [address] [place] [address] [id number] 16 Sep, 2008 [facility] [address] [id number] [address] [place] [id number] Sep, IMMUNIZATIONS No Known Immunizations SOCIAL HISTORY [...]
--- OUTSIDE RECORDS SUMMARY | 2020-01-27 10:18 | XMS REPORT ---
Author Author Silvia MERCHANT Organization [facility] Address [address] [place] [address] Care Team Providers Care Surgical Assistant Certified Name Role Phone KVNG MERCHANT Unavailable PROBLEMS Type Condition ICD9-CM Code CXH04-SG Code Onset Dates Condition S tatus SNOMED Code Problem Hypertension I10 Active 6155189 3 Problem Generalized anxiety disorder F41.1 A ctive 315051910 Problem History of colon polyps Z86.010 Active 000835946 Problem History of diverticulitis Z87.19 Acti ve [id number] Problem Family history of diabetes mellitus Z83.3 Active 614858749 Problem Excessive and frequent menstruation with irregular cycle N92.1 Active 575625453 Problem Hot flashes N95.1 Active 53728932 8 Problem Gastroesophageal reflux disease with esophagitis K 21.0 Active 651038742 Problem History of ovarian cyst Z87.42 Active 52616886 Problem Diverticulitis K57.92 Active 01266 6006 Problem Dense breast tissue R92.2 Active 965603745 Problem Perimenopausal N95.1 Active 42979 4824953861 Problem Mitral valve prolapse I34.1 Active 059542450 Problem Abnormal uterine bleeding (AUB) N93.9 Active 22424453209666 Problem Tachycardia R00.0 Active 3633924 ALLERGIES No Information ENCOUNTERS Encounter Location Date Diagnosis [facility] [address] [facility] [id number] [address] [place] [address] Mar, [facility] [address] [facility] [id number] [address] [place] [address] Mar, [facility] [address] [facility] [id number] [address] [place] [address] Feb, [facility] [address] [facility] [id number] [address] [place] [address] Feb, Generalized anxiety disorder F41.1 [facility] [address] [id number] [address] [place] [address] Feb, Generalized anxiety disorder F41.1 and Bereavement Z63.4 [facility] [address] [id number] [address] [place] [address] Jan, [facility] [address] [facility] [id number] [address] [place] [address] Jan, Breast cancer screening by trentno crenshaw Z12.31 [facility] [address] [id number] [address] [place] [address] Jan, Generalized anxiety disorder F41.1 and Bereavement Z63.4 [facility] [address] [facility] [id number] [address] [place] [address] Jan, [facility] [address] [facility] [id number] [address] [place] [address] December, Generalized anxiety disorder F41.1 and Bereavement Z63.4 [facility] [address] [facility] [id number] [address] [place] [address] December, Diverticulitis K57.92 ; Dysu nick R30.0 ; Other constipation K59.09 and Lower abdominal pain R10.30 [facility] [address] [facility] [id number] [address] [place] [address] Nov, Diverticulitis K57.92 [facility] [address] [facility] [id number] [address] [place] [address] Nov, Generalized anxiety disorder F41.1 and Bereavement Z63.4 [facility] [address] [facility] [id number] [address] [place] [address] Nov, Generalized anxiety disorder F41.1 and Bereavement Z63.4 [facility] [address] [facility] [id number] [address] [place] [address] Nov, Diverticulitis K57.92 [facility] [address] [facility] [id number] [address] [place] [address] Oct, Diverticulitis K57.92 [facility] [address] [facility] [id number] [address] [place] [address] Oct, Diverticulitis K57.92 [facility] [address] [facility] [id number] [address] [place] [address] Oct, Generalized anxiety disorder F41.1 [facility] [address] [facility] [id number] [address] [place] [address] Oct, Right lower quadrant abdomin al pain R10.31 and Diverticulitis K57.92 [facility] [address] [facility] [id number] [address] [place] [address] Sep, Generalized anxiety disorder F41.1 and Bereavement Z63.4 [facility] [address] [facility] [id number] [address] [place] [address] Aug, [facility] [address] [facility] [id number] [address] [place] [address] Aug, Generalized anxiety disorder F41.1 and Bereavement Z63.4 [facility] [address] [place], [place] [address] [place], [place] [address] Aug, Caries K02.9 [facility] [address] [place] [id number] [address] [place] [address] Jul, Generalized anxiety disorder F41.1 and Bereavement Z63.4 [facility] [address] [facility] [id number] [address] [place] [address] Jul, Other acute gastritis withou t hemorrhage K29.00 ; Generalized anxiety disorder F41.1 ; Tachycardia R00.0 and Essential hypertension I10 [facility] [address] [facility] [id number] [address] [place] [address] Jul, Generalized anxiety disorder F41.1 and Bereavement Z63.4 [facility] [address] [facility] [id number] [address] [place] [address] Jun, Generalized anxiety disorder F41.1 and Bereavement Z63.4 [facility] [address] [facility] [id number] [address] [place] [address] Jun, Generalized anxiety disorder F41.1 and Bereavement Z63.4 [facility] [address] [id number] [address] [place] [address] Jun, Dental examination Z01.20 [facility] [address] [facility] [id number] [address] [place] [address] May, Generalized anxiety disorder F41.1 and Bereavement Z63.4 [facility] [address] [facility] [id number] [address] [place] [address] May, Encounter for immunization Z 23 [facility] [address] [facility] [id number] [address] [place] [address] May, Generalized anxiety disorder F41.1 and Bereavement Z63.4 [facility] [address] [facility] [id number] [address] [place] [address] May, [facility] [address] [facility] [id number] [address] [place] [address] 24 Apr, 2018 Generalized anxiety disorder F41.1 and Bereavement Z63.4 [facility] [address] [facility] [id number] [address] [place] [address] 17 Apr, 2018 [facility] [address] [facility] [id number] [address] [place] [address] 13 Apr, 2018 Diverticulitis K57.92 [facility] [address] [id number] [address] [place] [address] 10 Apr, 2018 Generalized anxiety disorder F41.1 and Bereavement Z63.4 [facility] [address] [id number] [address] [place] [address] Mar, [facility] [address] [facility] [id number] [address] [place] [address] Mar, Diverticulitis K57.92 [facility] [address] [facility] [id number] [address] [place] [address] Mar, Generalized anxiety disorder F41.1 and Bereavement Z63.4 [facility] [address] [facility] [id number] [address] [place] [address] Mar, Hypertension I10 [facility] [address] [facility] [id number] [address] [place] [address] Mar, Generalized anxiety disorder F41.1 and Bereavement Z63.4 [facility] [address] [facility] [id number] [address] [place] [address] Feb, Generalized anxiety disorder F41.1 and Bereavement Z63.4 [facility] [address] [facility] [id number] [address] [place] [address] Feb, [facility] [address] [facility] [id number] [address] [place] [address] Feb, Generalized anxiety disorder F41.1 and Bereavement Z63.4 [facility] [address] [facility] [id number] [address] [place] [address] Feb, Generalized anxiety disorder F41.1 and Bereavement Z63.4 [facility] [address] [facility] [id number] [address] [place] [address] Jan, Hypertension I10 and Acute n on-recurrent maxillary sinusitis J01.00 [facility] [address] [facility] [id number] [address] [place] [address] December, [facility] [address] [facility] [id number] [address] [place] [address] December, Hypertension I10 [facility] [address] [facility] [id number] [address] [place] [address] December, Generalized anxiety disorder F41.1 [facility] [address] [facility] [id number] [address] [place] [address] Oct, Encounter for dental examina tion Z01.20 [facility] [address] [id number] [place] [address] 06 Oct, 2017 Encounter for dental examina tion Z01.20 [facility] [address] [id number] [address] [address] 02 Oct, 2017 Dental examination Z01.20 [facility] [address] [id number] [address] [place] [address] Oct, Generalized anxiety disorder F41.1 [facility] [address] [id number] [address] [place] [address] Aug, Dental examination Z01.20 [facility] [address] [id number] [address] [place] [address] Aug, Generalized anxiety disorder F41.1 [facility] [address] [id number] [address] [place] [address] Aug, [facility] [address] [id number] [address] [place] [address] Aug, Encounter for dental examina tion Z01.20 [facility] [address] [id number] [address] [place] [address] Aug, Subacute maxillary sinusitis J01.00 [facility] [address] [id number] [address] [place] [address] Jul, Dental examination Z01.20 [facility] [address] [id number] [address] [place] [address] Jul, Generalized anxiety disorder F41.1 [facility] [address] [id number] [address] [place] [address] Jul, Diverticulitis K57.92 [facility] [address] [id number] [address] [place] [address] Jun, Encounter for immunization Z 23 [facility] [address] [id number] [address] [place] [address] Jun, Dental examination Z01.20 [facility] [address] [id number] [address] [place] [address] 14 Jun, 2017 Generalized anxiety disorder F41.1 [facility] [address] [id number] [address] [place] [address] 07 Jun, 2017 Dental examination Z01.20 [facility] [address] [id number] [address] [place] [address] May, [facility] [address] [id number] [address] [place] [id number] May, Dental examination Z01.[address] [facility] [address] [id number] [address] [place] [id number] May, Dental examination Z01.20 [facility] [address] [id number] [address] [place] [address] May, Dental examination Z01.20 [facility] [address] [id number] [address] [place] [address] May, [facility] [address] [id number] [address] [place] [address] May, Generalized anxiety disorder F41.1 [facility] [address] [id number] [address] [place] [address] 05 May, 2017 Localized edema R60.0 ; Yeas t vaginitis B37.3 and Gastroesophageal reflux disease with esophagitis K21.[address] [facility] [address] [id number] [address] [place] [id number] Apr, Dental examination Z01.20 [facility] [address] [id number] [address] [place] [address] 21 Apr, 2017 Dental examination Z01.20 [facility] [address] [id number] [address] [place] [address] Apr, Dental examination Z01.20 [facility] [address] [id number] [address] [place] [address] Mar, Dyspepsia R10.13 [facility] [address] [id number] [address] [place] [address] Mar, Generalized anxiety disorder F41.1 [facility] [address] [id number] [address] [place] [address] Mar, Encounter for dental examina tion Z01.[address] [facility] [address] [id number] [address] [place] [id number] Mar, [facility] [address] [id number] [address] [place] [address] [id number] Mar, Dental examination Z01.20 [facility] [address] [id number] [address] [place] [address] Feb, Hypertension I10 and Tachyca rdia R00.0 [facility] [address] [id number] [address] [place] [address] Feb, [facility] [address] [id number] [address] [place] [address] Feb, Generalized anxiety disorder F41.[address] [facility] [address] [id number] [address] [place] [address] [id number] Feb, Dental examination Z01.20 [facility] [address] [id number] [address] [place] [address] Jan, Generalized anxiety disorder F41.1 [facility] [address] [id number] [address] [place] [address] December, Generalized anxiety disorder F41.[address] [facility] [address] [id number] [address] [place] [address] [phone] December, Encounter for dental examina tion Z01.20 [facility] [address] [id number] [address] [place] [address] Nov, [facility] [address] [place] [address] Nov, [facility] [address] [place] [address] Nov, Generalized anxiety disorder F41.1 [facility] [address] [place] [address] Oct, [facility] [address] [place] [id number] [address] [place] [address] [id number] Oct, Dental examination Z01.20 [facility] [address] [address] Oct, Vaginal dryness N89.8 [place] [address] [place] [id number] [address] [place] [address] Oct, Pseudoseizures F44.5 [facility] [address] [place] [address] Oct, Generalized anxiety disorder F41.1 [facility] [address] [place] [id number] [address] [place] [address] 28 Sep, 2016 Abnormal uterine bleeding (A UB) N93.9 ; Vaginal dryness N89.8 and Screening breast examination Z12.39 [place] [address] [place] [id number] [address] [place] [address] Sep, Dental examination Z01.20 [facility] [address] [place] [id number] [address] [place] [address] Sep, Generalized anxiety disorder F41.1 [facility] [address] [place] [id number] [address] [place] [address] 06 Sep, 2016 Unspecified ovarian cyst, ri ght side N83.201 ; Unspecified ovarian cyst, left side N83.202 ; Yeast infection of the vagina B37.3 ; Mitral valve prolapse I34.1 and Hypertension I10 [facility] [address] [place] [id number] [address] [place] [address] Aug, Generalized anxiety disorder F41.1 [facility] [address] [facility] [id number] [address] [place] [address] 28 Jul, 2016 [facility] [address] [facility] [id number] [address] [place] [address] Jul, Generalized anxiety disorder F41.1 [facility] [address] [facility] [id number] [address] [place] [address] Jun, Generalized anxiety disorder F41.1 [facility] [address] [facility] [id number] [address] [place] [address] 28 May, 2016 Encounter for immunization Z 23 [facility] [address] [facility] [id number] [address] [place] [phone] 17 May, 2016 Generalized anxiety disorder F41.1 and Depressive disorder, not elsewhere classified F32.9 [facility] [address] [facility] [id number] [address] [place] [address] 28 Apr, 2016 Hypertension I10 [facility] [address] [facility] [id number] [address] [place] [address] 22 Apr, 2016 Cervicalgia M54.2 [facility] [address] [facility] [id number] [address] [place] [address] 12 Apr, 2016 Cervicalgia M54.2 [facility] [address] [place] [id number] [address] [place] [address] 09 Mar, 2016 Generalized anxiety disorder F41.1 and Depressive disorder, not elsewhere classified F32.[address] [facility] [address] [facility] [id number] [address] [place] [address] [id number] 14 Feb, 2016 Visit for dental examination Z01.20 [facility] [address] [facility] [id number] [address] [place] [address] 11 Feb, 2016 Pseudoseizures F44.5 ; Migra ine without status migrainosus, not intractable, unspecified migraine type G43.909 and Essential hypertension I[address] [facility] [address] [place] [id number] [address] [place] [address] [id number] Feb, Dental examination Z01.20 [place] [address] [facility] [id number] [address] [place] [address] Feb, Generalized anxiety disorder F41.1 and Depressive disorder, not elsewhere classified F32.9 [place] [address] [place] [id number] [address] [place] [address] Jan, Tachycardia R00.0 [place] [address] [facility] [id number] [address] [place] [address] December, Eustachian tube dysfunction, bilateral H69.83 [place] [address] [place] [id number] [address] [place] [address] December, Generalized anxiety disorder F41.1 and Depressive disorder, not elsewhere classified F32.9 [place] [address] [place] [id number] [address] [place] [address] Nov, [place] [address] [place] [id number] [address] [place] [address] Nov, [place] [address] [address] Nov, Hypertension I10 ; Onychomyc osis B35.1 [...] and Complex cyst of left ovary N83.29 [facility] [address] [place] [id number] [address] [place] [address] 14 Nov, 2015 Sinusitis J32.9 [place] [address] [place] [id number] [address] [place] [address] Oct, Complex cyst of left ovary N 83.29 [facility] [address] [facility] [id number] [address] [place] [address] Oct, Onychomycosis B35.[address] [facility] [address] [facility] [id number] [address] [place] [address] [id number] 17 Oct, 2015 Dental examination Z01.20 [facility] [address] [place] [id number] [address] [place] [address] 09 Oct, 2015 Well woman exam Z01.419 [...] R92.2 and History of colon polyps Z86.010 [place] [address] [place] [address] Oct, Generalized anxiety disorder F41.1 and Depressive disorder, not elsewhere classified F32.9 [place] [address] [place] [id number] [address] [place] [address] Sep, Hypertension I10 and Onychom ycosis B35.1 [place] [address] [place] [id number] [address] [place] [address] 16 Sep, 2015 Skin tags, multiple acquired L91.8 [place] [address] [place] [id number] [address] [place] [address] Aug, [place] [address] [address] Aug, [place] [address] [place] [id number] [address] [place] [address] Aug, [place] [address] [address] Aug, Generalized anxiety disorder F41.1 and Depressive disorder, not elsewhere classified F32.9 [facility] [address] [id number] [address] [place] [address] Jul, Skin lesion L98.9 [facility] [address] [id number] [address] [place] [address] Jun, Generalized anxiety disorder F41.1 and Depressive disorder, not elsewhere classified F32.9 [facility] [address] [id number] [address] [place] [address] Jun, [facility] [address] [id number] [address] [place] [address] Jun, Generalized anxiety disorder F41.1 [facility] [address] [facility] [id number] [address] [place] [address] May, Encounter for immunization Z 23 and Right shoulder pain M25.511 [facility] [address] [id number] [address] [place] [id number] Apr, [facility] [address] [facility] [id number] [address] [place] [id number] 14 Apr, 2015 Generalized anxiety disorder 300.02 and Depressive disorder, not elsewhere classified [address] 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 [address] [id number] [address] [place] [id number] 07 Feb, 2015 Dental examination V72.2 [facility] [address] [facility] [id number] [address] [place] [phone] 09 Jan, 2015 Generalized anxiety disorder 300.02 and Depressive disorder, not elsewhere classified 311 [facility] [address] [facility] [id number] [address] [place] [address] Jan, [facility] [address] [facility] [id number] [address] [place] [id number] December, Generalized anxiety disorder 300.02 and Depressive disorder, not elsewhere classified 311 [facility] [address] [facility] [id number] [address] [place] [address] December, Major depressive disorder, r ecurrent, unspecified 296.30 and Panic disorder with agoraphobia 300.21 [facility] [address] [facility] [id number] [address] [place] [id number] Nov, [facility] [address] [facility] [id number] [address] [place] [id number] Nov, [facility] [address] [facility] [id number] [address] [place] [id number] Oct, [facility] [address] [facility] [id number] [address] [place] [id number] Oct, [facility] [address] [facility] [id number] [address] [place] [id number] Oct, [facility] [address] [facility] [id number] [address] [place] [id number] Oct, [facility] [address] [facility] [id number] [address] [place] [id number] Sep, [facility] [address] [facility] [id number] [address] [place] [id number] Sep, [facility] [address] [facility] [id number] [address] [place] [id number] Sep, [facility] [address] [id number] [address] [place] [address], [place] [address] Sep, 2014 [facility] [address] [id number] [address] [place] [address], [place] [address] Sep, 2014 [facility] [address] [id number] [address] [place] [address], [place] [address] Sep, 2014 [facility] [address] [id number] [address] [place] [address], [place] [address] Sep, 2014 [facility] [address] [id number] [address] [place] [address], [place] [address] Sep, 2014 [facility] [address] [id number] [address] [place] [address], [place] [address] Sep, 2014 [facility] [address] [id number] [address] [place] [address], [place] [address] Sep, 2014 [facility] [address] [id number] [address] [place] [address], [place] [address] Aug, [facility] [address] [id number] [address] [place] [address], [place] [address] Aug, [facility] [address] [id number] [address] [place] [address], [place] [address] Jul, [facility] [address] [id number] [address] [place] [address], [place] [address] Jul, [facility] [address] [id number] [address] [place] [address], [place] [address] Jul, [facility] [address] [id number] [address] [place] [address], [place] [address] Jul, [facility] [address] [id number] [address] [place] [address], [place] [address] Jul, [facility] [address] [id number] [address] [place] [address], [place] [address] Jul, [facility] [address] [id number] [address] [place] [address], [place] [address] 05 Jul, 2014 [facility] [address] [id number] [address] [place] [address], [place] [address] Jul, [facility] [address] [id number] [address] [place] [address], [place] [address] Jul, [facility] [address] [id number] [address] [place] [address], [place] [address] Jul, [facility] [address] [id number] [address] [place] [address], [place] [address] Jul, [facility] [address] [id number] [address] [place] [address], [place] [address] Jul, [facility] [address] [id number] [address] [place] [address], [place] [address] Jun, [facility] [address] [id number] [address] [place] [address], [place] [address] Jun, [facility] [address] [id number] [address] [place] [address], [place] [address] May, [facility] [address] [id number] [address] [place] [address], [place] [address] May, [facility] [address] [id number] [address] [place] [address], [place] [address] May, [facility] [address] [id number] [address] [place] [address], [place] [address] May, [facility] [address] [id number] [address] [place] [address], [place] [address] May, [facility] [address] [id number] [address] [place] [address], [place] [address] May, [facility] [address] [id number] [address] [place] [address], [place] [address] May, [facility] [address] [id number] [address] [place] [address], [place] [address] May, [facility] [address] [id number] [address] [place] [address], [place] [address] May, [facility] [address] [id number] [address] [place] [address], [place] [address] May, [facility] [address] [id number] [address] [place] [address], [place] [address] May, [facility] [address] [id number] [address] [place] [address], [place] [address] May, [facility] [address] [id number] [address] [place] [address], [place] [address] Apr, [facility] [address] [id number] [address] [place] [address], [place] [address] Apr, [facility] [address] [id number] [address] [place] [address], [place] [address] Apr, [facility] [address] [id number] [address] [place] [address], [place] [address] Apr, [facility] [address] [id number] [address] [place] [address], [place] [address] Apr, [facility] [address] [id number] [address] [place] [address], [place] [address] Apr, [facility] [address] [id number] [address] [place] [address], [place] [address] Feb, [facility] [address] [id number] [address] [place] [address], [place] [address] Feb, [facility] [address] [id number] [address] [place] [address], [place] [address] Feb, [facility] [address] [id number] [address] [place] [address], [place] [address] Feb, [facility] [address] [id number] [address] [place] [address], [place] [address] Feb, [facility] [address] [id number] [address] [place] [address], [place] [address] Feb, [facility] [address] [id number] [address] [place] [address], [place] [address] Jan, [facility] [address] [id number] [address] [place] [address], [place] [address] Jan, [facility] [address] [id number] [address] [place] [address], [place] [address] Jan, [facility] [address] [id number] [address] [place] [address], [place] [address] Jan, [facility] [address] [id number] [address] [place] [address], [place] [address] Jan, [facility] [address] [id number] [address] [place] [address], [place] [address] Jan, [facility] [address] [id number] [address] [place] [address], [place] [address] Jan, [facility] [address] [id number] [address] [place] [address], [place] [address] Jan, [facility] [address] [id number] [address] [place] [address], [place] [address] December, [facility] [address] [id number] [address] [place] [address], [place] [address] December, [facility] [address] [id number] [address] [place] [address], [place] [address] December, [facility] [address] [id number] [address] [place] [address], [place] [address] December, [facility] [address] [id number] [address] [place] [address], [place] [address] Nov, [facility] [address] [id number] [address] [place] [address], [place] [address] Nov, [facility] [address] [id number] [address] [place] [address], [place] [address] Nov, [facility] [address] [id number] [address] [place] [address], [place] [address] Nov, [facility] [address] [id number] [address] [place] [address], [place] [address] Nov, [facility] [address] [id number] [address] [place] [address], [place] [address] Nov, [facility] [address] [id number] [address] [place] [address], [place] [address] Nov, [facility] [address] [id number] [address] [place] [address], [place] [address] Nov, [facility] [address] [id number] [address] [place] [address], [place] [address] Oct, [facility] [address] [id number] [address] [place] [address], [place] [address] Oct, [facility] [address] [id number] [address] [place] [address], [place] [address] Sep, [facility] [address] [id number] [address] [place] [address], [place] [address] Sep, [facility] [address] [id number] [address] [place] [id number] Sep, [facility] [address] [id number] [address] [place] [address], [place] [address] Sep, [facility] [address] [id number] [address] [place] [address], [place] [address] Sep, [facility] [address] [id number] [address] [place] [address], [place] [address] Sep, [facility] [address] [id number] [address] [place] [address], [place] [address] Aug, [facility] [address] [id number] [address] [place] [address], [place] [address] Aug, [facility] [address] [id number] [address] [place] [id number] Aug, [facility] [address] [id number] [address] [place] [address], [place] [address] Aug, [facility] [address] [id number] [address] [place] [address], [place] [address] Jul, [facility] [address] [id number] [address] [place] [address], [place] [address] Jul, [facility] [address] [id number] [address] [place] [address], [place] [address] Jul, [facility] [address] [id number] [address] [place] [address], [place] [address] Jul, [facility] [address] [id number] [address] [place] [address], [place] [address] Jun, [facility] [address] [id number] [address] [place] [address], [place] [address] Jun, [facility] [address] [id number] [address] [place] [address], [place] [address] May, [facility] [address] [id number] [address] [place] [address], [place] [address] May, [facility] [address] [id number] [address] [place] [address], [place] [address] May, [facility] [address] [id number] [address] [place] [address], [place] [address] May, [facility] [address] [id number] [address] [place] [address] May, [facility] [address] [id number] [address] [place] [address], [place] [address] 17 Apr, 2013 [facility] [address] [id number] [address] [place] [address], [place] [address] 10 Apr, 2013 [facility] [address] [id number] [address] [place] [address], [place] [address] Mar, [facility] [address] [id number] [address] [place] [address], [place] [address] Mar, [facility] [address] [id number] [address] [place] [address], [place] [address] Mar, [facility] [address] [id number] [address] [place] [address], [place] [address] Mar, [facility] [address] [id number] [address] [place] [address], [place] [address] Feb, [facility] [address] [id number] [address] [place] [address], [place] [address] Feb, [facility] [address] [id number] [address] [place] [address], [place] [address] Feb, [facility] [address] [id number] [address] [place] [address], [place] [address] Feb, [facility] [address] [id number] [address] [place] [address], [place] [address] Feb, [facility] [address] [id number] [address] [place] [address], [place] [address] Jan, [facility] [address] [id number] [address] [place] [address], [place] [address] Jan, [facility] [address] [id number] [address] [place] [address], [place] [address] Jan, [facility] [address] [id number] [address] [place] [address], [place] [address] Jan, [facility] [address] [id number] [address] [place] [address], [place] [address] Jan, [facility] [address] [id number] [address] [place] [address], [place] [address] December, [facility] [address] [id number] [address] [place] [address], [place] [address] December, [facility] [address] [id number] [address] [place] [address], [place] [address] Nov, [facility] [address] [id number] [address] [place] [address], [place] [address] 02 Nov, 2012 [facility] [address] [id number] [address] [place] [address], [place] [address] 19 Oct, 2012 [facility] [address] [id number] [address] [place] [address], [place] [address] 13 Oct, 2012 [facility] [address] [id number] [address] [place] [address], [place] [address] 05 Oct, 2012 [facility] [address] [id number] [address] [place] [address], [place] [address] 14 Sep, 2012 [facility] [address] [id number] [address] [place] [address], [place] [address] 24 Aug, 2012 [facility] [address] [id number] [address] [place] [address], [place] [address] 16 Aug, 2012 [facility] [address] [id number] [address] [place] [address], [place] [address] 15 Aug, 2012 [facility] [address] [id number] [address] [place] [address], [place] [address] Aug, [facility] [address] [id number] [address] [place] [address], [place] [address] Jul, [facility] [address] [id number] [address] [place] [address], [place] [address] Jul, [facility] [address] [id number] [address] [place] [address], [place] [address] Jul, [facility] [address] [id number] [address] [place] [address], [place] [address] Jul, [facility] [address] [id number] [address] [place] [address], [place] [address] Jul, [facility] [address] [id number] [address] [place] [address], [place] [address] Jul, [facility] [address] [id number] [address] [place] [address] [place] [address] Jul, [facility] [address] [id number] [address] [place] [address], [place] [address] Jul, [facility] [address] [id number] [address] [place] [address], [place] [address] Jun, [facility] [address] [id number] [address] [place] [address], [place] [address] Jun, [facility] [address] [id number] [address] [place] [address], [place] [address] Jun, [facility] [address] [id number] [address] [place] [address], [place] [address] Jun, [facility] [address] [id number] [address] [place] [address], [place] [address] Jun, [facility] [address] [id number] [address] [place] [address], [place] [address] Jun, [facility] [address] [id number] [address] [place] [address], [place] [address] May, [facility] [address] [id number] [address] [place] [address], [place] [address] May, [facility] [address] [id number] [address] [place] [address], [place] [address] May, [facility] [address] [id number] [address] [place] [address], [place] [address] May, [facility] [address] [id number] [address] [place] [address], [place] [address] Apr, [facility] [address] [id number] [address] [place] [address], [place] [address] Apr, [facility] [address] [id number] [address] [place] [address], [place] [address] Mar, [facility] [address] [id number] [address] [place] [address], [place] [address] Jan, [facility] [address] [id number] [address] [place] [address], [place] [address] 20 Jan, 2012 [facility] [address] [id number] [address] [place] [address], [place] [address] 16 Jan, 2012 [facility] [address] [id number] [address] [place] [address], [place] [address] 15 Jan, 2012 [facility] [address] [id number] [address] [place] [address], [place] [address] 14 Jan, 2012 [facility] [address] [id number] [address] [place] [address], [place] [address] 14 Jan, 2012 [facility] [address] [id number] [address] [place] [address], [place] [address] 07 Jan, 2012 [facility] [address] [id number] [address] [place] [address], [place] [address] December, [facility] [address] [id number] [address] [place] [address], [place] [address] December, [facility] [address] [id number] [address] [place] [address], [place] [address] December, [facility] [address] [id number] [address] [place] [address], [place] [address] December, [facility] [address] [id number] [address] [place] [address], [place] [address] Nov, [facility] [address] [id number] [address] [place] [address], [place] [address] 05 Nov, 2011 [facility] [address] [id number] [address] [place] [address], [place] [address] 29 Oct, 2011 [facility] [address] [id number] [address] [place] [address], [place] [address] 28 Oct, 2011 [facility] [address] [id number] [address] [place] [address], [place] [address] 15 Oct, 2011 [facility] [address] [id number] [address] [place] [address], [place] [address] Sep, [facility] [address] [id number] [address] [place] [address], [place] [address] Sep, [facility] [address] [id number] [address] [place] [address], [place] [address] Sep, [facility] [address] [id number] [address] [place] [address], [place] [address] Aug, [facility] [address] [id number] [address] [place] [address], [place] [address] Aug, [facility] [address] [id number] [address] [place] [address], [place] [address] Aug, [facility] [address] [id number] [address] [place] [address], [place] [address] Aug, [facility] [address] [id number] [address] [place] [address], [place] [address] Aug, [facility] [address] [id number] [address] [place] [address], [place] [address] Aug, [facility] [address] [id number] [address] [place] [address], [place] [address] Aug, [facility] [address] [id number] [address] [place] [address], [place] [address] Jul, [facility] [address] [id number] [address] [place] [address], [place] [address] Jul, [facility] [address] [id number] [address] [place] [address], [place] [address] Jun, [facility] [address] [id number] [address] [place] [address], [place] [address] Jun, [facility] [address] [id number] [address] [place] [address], [place] [address] 17 Jun, 2011 [facility] [address] [id number] [address] [place] [address], [place] [address] 15 Jun, 2011 [facility] [address] [id number] [address] [place] [address], [place] [address] 14 Jun, 2011 [facility] [address] [id number] [address] [place] [address], [place] [address] 14 Jun, 2011 [facility] [address] [id number] [address] [place] [address], [place] [address] 07 Jun, 2011 [facility] [address] [id number] [address] [place] [address], [place] [address] 07 Jun, 2011 [facility] [address] [id number] [address] [place] [address], [place] [address] Jun, [facility] [address] [id number] [address] [place] [address], [place] [address] Jun, [facility] [address] [id number] [address] [place] [address], [place] [address] May, [facility] [address] [id number] [address] [place] [address], [place] [address] May, [facility] [address] [id number] [address] [place] [address], [place] [address] May, [facility] [address] [id number] [address] [place] [address], [place] [address] 24 May, 2011 [facility] [address] [id number] [address] [place] [address], [place] [address] May, [facility] [address] [id number] [address] [place] [address], [place] [address] May, [facility] [address] [id number] [address] [place] [address], [place] [address] Feb, [facility] [address] [id number] [address] [place] [address], [place] [address] December, [facility] [address] [id number] [address] [place] [address], [place] [address] Jul, [facility] [address] [id number] [address] [place] [address], [place] [address] Jul, [facility] [address] [id number] [address] [place] [address] [id number] Jul, [facility] [address] [id number] [address] [place] [phone] Jul, [facility] [address] [id number] [address] [place] [id number] Jun, [facility] [address] [id number] [address] [place] [id number] Jul, [facility] [address] [id number] [address] [place] [phone] Jul, [facility] [address] [id number] [address] [place] [phone] Jul, [facility] [address] [id number] [address] [place] [id number] Jul, [facility] [address] [id number] [address] [place] [id number] Jul, [facility] [address] [id number] [address] [place] [phone] Jul, [facility] [address] [id number] [address] [place] [phone] Jan, [facility] [address] [id number] [address] [place] [id number] 16 Sep, 2008 [facility] [address] [id number] [address] [place] [phone] Sep, IMMUNIZATIONS No Known Immunizations SOCIAL HISTORY Never Assessed REASON FOR VISIT PLAN OF CARE VITAL SIGNS MEDICATIONS Unknown Medications RESULTS No Results PROCEDURES Procedure Date Ordered Result Body Site PSYTX PT&/FAMILY 45 MINUTES Oct 11, 2014 INSTRUCTIONS MEDICATIONS ADMINISTERED No Known Medications [...]
--- OUTSIDE RECORDS SUMMARY | 2020-01-27 10:18 | XMS REPORT ---
Author Author Silvia Anthony Organization [facility] [place] Address [address] [place] [address] Care Team Providers Care Assistant Food Service Director Name Role Phone ROBERT Anthony Unavailable PROBLEMS Type Condition ICD9-CM Code [id number] Code Onset Dates Condition S tatus SNOMED Code Problem Hypertension I10 Active 0141648 3 Problem Generalized anxiety disorder F41.1 A ctive 106905332 Problem History of colon polyps Z86.010 Active 203449399 Problem History of diverticulitis Z87.19 Acti ve [id number] Problem Family history of diabetes mellitus Z83.3 Active 896104273 Problem Excessive and frequent menstruation with irregular cycle N92.1 Active 754601186 Problem Hot flashes N95.1 Active 49910824 8 Problem Gastroesophageal reflux disease with esophagitis K 21.0 Active 862142999 Problem History of ovarian cyst Z87.42 Active 52630056 Problem Diverticulitis K57.92 Active 03731 6006 Problem Dense breast tissue R92.2 Active 789305365 Problem Perimenopausal N95.1 Active 50113 2557956527 Problem Mitral valve prolapse I34.1 Active 693579575 Problem Abnormal uterine bleeding (AUB) N93.9 Active [id number] Problem Tachycardia R00.0 Active 5658485 ALLERGIES No Information ENCOUNTERS Encounter Location Date Diagnosis [facility] [place] [address] [facility] [id number] [address] [place] [phone] Mar, [facility] [place] [address] [facility] [id number] [address] [place] [phone] Mar, [facility] [place] [address] [facility] [id number] [address] [place] [phone] Feb, [facility] [place] [address] [facility] [id number] [address] [place] [phone] Feb, Generalized anxiety disorder F41.1 [facility] [place] [address] [id number] [address] [place] [phone] Feb, Generalized anxiety disorder F41.1 and Bereavement Z63.4 [facility] [place] [address] [id number] [address] [place] [phone] Jan, [facility] [place] [address] [facility] [id number] [address] [place] [phone] Jan, Breast cancer screening by trenton crenshaw Z12.31 [facility] [place] [address] [id number] [address] [place] [phone] Jan, Generalized anxiety disorder F41.1 and Bereavement Z63.4 [facility] [place] [address] [id number] [address] [place] [phone] Jan, [facility] [place] [address] [facility] [id number] [address] [place] [phone] December, Generalized anxiety disorder F41.1 and Bereavement Z63.4 [facility] [place] [address] [facility] [id number] [address] [place] [phone] December, Diverticulitis K57.92 ; Dysu nick R30.0 ; Other constipation K59.09 and Lower abdominal pain R10.30 [facility] [address] [facility] [id number] [address] [place] [phone] Nov, Diverticulitis K57.92 [facility] [place] [address] [facility] [id number] [address] [place] [phone] Nov, Generalized anxiety disorder F41.1 and Bereavement Z63.4 [facility] [place] [address] [facility] [id number] [address] [place] [phone] Nov, Generalized anxiety disorder F41.1 and Bereavement Z63.4 [facility] [place] [address] [facility] [id number] [address] [place] [id number] Nov, Diverticulitis K57.92 [facility] [address] [facility] [id number] [address] [place] [phone] Oct, Diverticulitis K57.92 [facility] [place] [address] [facility] [id number] [address] [place] [id number] Oct, Diverticulitis K57.92 [facility] [place] [address] [facility] [id number] [address] [place] [phone] Oct, Generalized anxiety disorder F41.1 [facility] [address] [facility] [id number] [address] [place] [phone] Oct, Right lower quadrant abdomin al pain R10.31 and Diverticulitis K57.92 [facility] [place] [address] [facility] [id number] [address] [place] [phone] Sep, Generalized anxiety disorder F41.1 and Bereavement Z63.4 [facility] [place] [address] [facility] [id number] [address] [place] [phone] Aug, [facility] [place] [address] [facility] [id number] [address] [place] [phone] Aug, Generalized anxiety disorder F41.1 and Bereavement Z63.4 [facility] [address] [id number] [address] [address] Aug, Caries K02.9 [facility] [place] [address] [facility] [id number] [address] [place] [phone] Jul, Generalized anxiety disorder F41.1 and Bereavement Z63.4 [facility] [place] [address] [facility] [id number] [address] [place] [phone] Jul, Other acute gastritis withou t hemorrhage K29.00 ; Generalized anxiety disorder F41.1 ; Tachycardia R00.0 and Essential hypertension I10 [facility] [place] [address] [facility] [id number] [address] [place] [phone] Jul, Generalized anxiety disorder F41.1 and Bereavement Z63.4 [facility] [place] [address] [facility] [id number] [address] [place] [phone] Jun, Generalized anxiety disorder F41.1 and Bereavement Z63.4 [facility] [place] [address] [facility] [id number] [address] [place] [phone] Jun, Generalized anxiety disorder F41.1 and Bereavement Z63.4 [facility] [address] [id number] [address] [place] [address] Jun, Dental examination Z01.20 [facility] [place] [address] [facility] [id number] [address] [place] [phone] May, Generalized anxiety disorder F41.1 and Bereavement Z63.4 [facility] [place] [address] [facility] [id number] [address] [place] [phone] 08 May, 2018 Encounter for immunization Z 23 [facility] [place] [address] [facility] [id number] [address] [place] [phone] May, Generalized anxiety disorder F41.1 and Bereavement Z63.4 [facility] [place] [address] [facility] [id number] [address] [place] [phone] May, [facility] [place] [address] [facility] [id number] [address] [place] [phone] 24 Apr, 2018 Generalized anxiety disorder F41.1 and Bereavement Z63.4 [facility] [place] [address] [facility] [id number] [address] [place] [phone] 17 Apr, 2018 [facility] [place] [address] [facility] [id number] [address] [place] [phone] 13 Apr, 2018 Diverticulitis K57.92 [facility] [place] [address] [facility] [id number] [address] [place] [phone] 10 Apr, 2018 Generalized anxiety disorder F41.1 and Bereavement Z63.4 [facility] [address] [facility] [id number] [address] [place] [phone] Mar, [facility] [address] [facility] [id number] [address] [place] [phone] Mar, Diverticulitis K57.92 [facility] [place] [address] [facility] [id number] [address] [place] [phone] Mar, Generalized anxiety disorder F41.1 and Bereavement Z63.4 [facility] [place] [address] [facility] [id number] [address] [place] [phone] Mar, Hypertension I10 [facility] [place] [address] [facility] [id number] [address] [place] [phone] Mar, Generalized anxiety disorder F41.1 and Bereavement Z63.4 [facility] [place] [address] [facility] [id number] [address] [place] [phone] Feb, Generalized anxiety disorder F41.1 and Bereavement Z63.4 [facility] [place] [address] [facility] [id number] [address] [place] [phone] Feb, [facility] [place] [address] [facility] [id number] [address] [place] [phone] Feb, Generalized anxiety disorder F41.1 and Bereavement Z63.4 [facility] [place] [address] [facility] [id number] [address] [place] [phone] Feb, Generalized anxiety disorder F41.1 and Bereavement Z63.4 [facility] [place] [address] [facility] [id number] [address] [place] [phone] Jan, Hypertension I10 and Acute n on-recurrent maxillary sinusitis J01.00 [facility] [place] [address] [facility] [id number] [address] [place] [phone] December, [facility] [place] [address] [facility] [id number] [address] [place] [phone] December, Hypertension I10 [facility] [place] [address] [facility] [id number] [address] [place] [phone] December, Generalized anxiety disorder F41.1 [facility] [address] [facility] [address] [id number] [address] [address] 16 Oct, 2017 Encounter for dental examina tion Z01.20 [facility] [address] [id number] [address] [place] [phone] 06 Oct, 2017 Encounter for dental examina tion Z01.20 [facility] [address] [id number] [place] [address] 02 Oct, 2017 Dental examination Z01.20 [facility] [place] [address] [id number] [address] [place] [id number] Oct, Generalized anxiety disorder F41.1 [facility] [address] [id number] [address] [place] [phone] Aug, Dental examination Z01.20 [facility] [place] [address] [id number] [address] [place] [phone] Aug, Generalized anxiety disorder F41.1 [facility] [place] [address] [id number] [address] [place] [phone] Aug, [facility] [address] [id number] [address] [place] [phone] Aug, Encounter for dental examina tion Z01.20 [facility] [place] [address] [id number] [address] [place] [phone] Aug, Subacute maxillary sinusitis J01.00 [facility] [address] [id number] [address] [place] [phone] Jul, Dental examination Z01.20 [facility] [place] [address] [id number] [address] [place] [phone] Jul, Generalized anxiety disorder F41.1 [facility] [place] [address] [id number] [address] [place] [phone] Jul, Diverticulitis K57.92 [facility] [place] [address] [id number] [address] [place] [phone] 28 Nov, 2017 Encounter for immunization Z 23 [facility] [address] [id number] [place] [address] 22 Jun, 2017 Dental examination Z01.20 [facility] [place] [address] [id number] [address] [place] [phone] 14 Jun, 2017 Generalized anxiety disorder F41.1 [facility] [address] [id number] [address] [place] [phone] 07 Jun, 2017 Dental examination Z01.20 [facility] [place] [address] [id number] [address] [place] [phone] May, [facility] [address] [id number] [address] [place] [id number] May, Dental examination Z01.20 [facility] [address] [id number] [address] [place] [address] [id number] May, Dental examination Z01.20 [facility] [address] [id number] [address] [place] [phone] May, Dental examination Z01.20 [facility] [place] [address] [id number] [address] [place] [phone] May, [facility] [place] [address] [id number] [address] [place] [phone] May, Generalized anxiety disorder F41.1 [facility] [place] [address] [id number] [address] [place] [phone] 05 May, 2017 Localized edema R60.0 ; Yeas t vaginitis B37.3 and Gastroesophageal reflux disease with esophagitis K21.0 [facility] [address] [id number] [address] [place] [phone] Apr, Dental examination Z01.20 [facility] [address] [id number] [place] [address] Apr, Dental examination Z01.20 [facility] [address] [id number] [address] [place] [phone] 05 Apr, 2017 Dental examination Z01.20 [facility] [place] [address] [id number] [address] [place] [phone] Mar, Dyspepsia R10.13 [facility] [place] [address] [id number] [address] [place] [phone] Mar, Generalized anxiety disorder F41.1 [facility] [address] [id number] [address] [place] [phone] Mar, Encounter for dental examina tion Z01.20 [facility] [address] [id number] [address] [place] [address] [id number] Mar, [facility] [address] [id number] [address] [place] [address] [id number] Mar, Dental examination Z01.20 [facility] [place] [address] [id number] [address] [place] [phone] Feb, Hypertension I10 and Tachyca rdia R00.0 [facility] [address] [id number] [address] [place] [phone] Feb, [facility] [place] [address] [id number] [address] [place] [phone] Feb, Generalized anxiety disorder F41.1 [facility] [address] [id number] [address] [place] [address] [id number] Feb, Dental examination Z01.20 [facility] [place] [address] [id number] [address] [place] [phone] Jan, Generalized anxiety disorder F41.1 [facility] [place] [address] [id number] [address] [place] [phone] December, Generalized anxiety disorder F41.1 [facility] [address] [id number] [address] [place] [address] [phone] December, Encounter for dental examina tion Z01.20 [facility] [place] [address] [id number] [address] [place] [phone] Nov, [facility] [place] [address] [id number] Nov, [facility] [place] [address] [phone] Nov, Generalized anxiety disorder F41.1 [facility] [place] [address] [phone] Oct, [facility] [address] [facility] [id number] [address] [place] [address] [id number] Oct, Dental examination Z01.20 [place] [address] [phone] Oct, Vaginal dryness N89.8 [place] [address] [address] Oct, Pseudoseizures F44.5 [place] [address] [address] Oct, Generalized anxiety disorder F41.1 [place] [address] [address] 28 Sep, 2016 Abnormal uterine bleeding (A UB) N93.9 ; Vaginal dryness N89.8 and Screening breast examination Z12.39 [place] [address] [phone] Sep, Dental examination Z01.20 [place] [address] [place] [id number] [address] [place] [phone] Sep, Generalized anxiety disorder F41.1 [place] [address] [id number] 06 Sep, 2016 Unspecified ovarian cyst, ri ght side N83.201 ; Unspecified ovarian cyst, left side N83.202 ; Yeast infection of the vagina B37.3 ; Mitral valve prolapse I34.1 and Hypertension I10 [place] [address] [id number] [address] [place] [phone] Aug, Generalized anxiety disorder F41.1 [facility] [place] [address] [facility] [id number] [address] [place] [phone] 28 Jul, 2016 [facility] [place] [address] [facility] [id number] [address] [place] [phone] Jul, Generalized anxiety disorder F41.1 [facility] [place] [address] [facility] [id number] [address] [place] [phone] Jun, Generalized anxiety disorder F41.1 [facility] [place] [address] [facility] [id number] [address] [place] [phone] 28 May, 2016 Encounter for immunization Z 23 [facility] [place] [address] [facility] [id number] [address] [place] [phone] 17 May, 2016 Generalized anxiety disorder F41.1 and Depressive disorder, not elsewhere classified F32.9 [facility] [place] [address] [facility] [id number] [address] [place] [phone] 28 Apr, 2016 Hypertension I10 [facility] [place] [address] [facility] [id number] [address] [place] [phone] 22 Apr, 2016 Cervicalgia M54.2 [facility] [address] [facility] [id number] [address] [place] [phone] 12 Apr, 2016 Cervicalgia M54.2 [facility] [place] [address] [facility] [id number] [address] [place] [phone] 09 Mar, 2016 Generalized anxiety disorder F41.1 and Depressive disorder, not elsewhere classified F32.9 [facility] [address] [id number] [address] [place] [address] [id number] 14 Feb, 2016 Visit for dental examination Z01.20 [facility] [place] [address] [facility] [id number] [address] [place] [id number] 11 Feb, 2016 Pseudoseizures F44.5 ; Migra ine without status migrainosus, not intractable, unspecified migraine type G43.909 and Essential hypertension I10 [facility] [address] [id number] [address] [place] [address] [id number] 06 Feb, 2016 Dental examination Z01.20 [facility] [place] [address] [facility] [id number] [address] [place] [phone] Feb, Generalized anxiety disorder F41.1 and Depressive disorder, not elsewhere classified F32.9 [facility] [place], [facility] [address] [facility] [id number] [address] [place] [phone] Jan, Tachycardia R00.0 [place] [address] [address] [facility] [id number] [address] [place] [phone] December, Eustachian tube dysfunction, bilateral H69.83 [place] [address] [address] [facility] [id number] [address] [place] [phone] December, Generalized anxiety disorder F41.1 and Depressive disorder, not elsewhere classified F32.9 [place] [address] [address] [place] [id number] [address] [place] [phone] Nov, [place] [address] [address] [place] [id number] [address] [place] [phone] Nov, [place] [address] [address] [place] [id number] [address] [place] [phone] Nov, Hypertension I10 ; Onychomyc osis B35.1 [...] [facility] [address] [facility] [id number] [address] [place] [phone] 14 Nov, 2015 Sinusitis J32.9 [facility] [place], [facility] [address] [facility] [id number] [address] [place] [phone] Oct, Complex cyst of left ovary N 83.29 [facility] [place], [facility] [address] [facility] [id number] [address] [place] [phone] Oct, Onychomycosis B35.1 [facility] [address] [id number] [address] [place] [id number] 17 Oct, 2015 Dental examination Z01.20 [facility] [place], [facility] [address] [facility] [id number] [address] [place] [phone] 09 Oct, 2015 Well woman exam Z01.419 [...] [facility] [address] [facility] [id number] [address] [place] [phone] Oct, Generalized anxiety disorder F41.1 and Depressive disorder, not elsewhere classified F32.9 [place] [address] [address] [place] [id number] [place] [address] Sep, Hypertension I10 and Onychom ycosis B35.1 [place] [id number] N [facility] [id number] [address] [place] [id number] 16 Sep, 2015 Skin tags, multiple acquired L91.8 [facility] [place] [address] [facility] [id number] [address] [place] [id number] Aug, [place] [address] [address] [facility] [id number] [address] [place] [id number] Aug, [place] [address] [address] [facility] [id number] [address] [place] [id number] Aug, [place] [address] N [place] [id number] [address] [place] [id number] Aug, Generalized anxiety disorder F41.1 and Depressive disorder, not elsewhere classified F32.9 [facility] [place] [address] [id number] [address] [place] [phone] Jul, Skin lesion L98.9 [facility] [place] [address] [id number] [address] [place] [phone] Jun, Generalized anxiety disorder F41.1 and Depressive disorder, not elsewhere classified F32.9 [facility] [place] [address] [id number] [address] [place] [phone] Jun, [facility] [place] [address] [id number] [address] [place] [phone] Jun, Generalized anxiety disorder F41.1 [facility] [place] [address] [facility] [id number] [address] [place] [phone] May, Encounter for immunization Z 23 and Right shoulder pain M25.511 [facility] [place] [address] [id number] [address] [place] [id number] Apr, [facility] [place] [address] [id number] [address] [place] [phone] 14 Apr, 2015 Generalized anxiety disorder 300.02 and Depressive disorder, not elsewhere classified 311 [facility] [address] [id number] [address] [place] [id number] Mar, Dental examination V72.2 [facility] [place] [address] [id number] [address] [place] [phone] Mar, Generalized anxiety disorder 300.02 and Depressive disorder, not elsewhere classified 311 [facility] [place] [address] [id number] [address] [place] [phone] Mar, Depression, major, recurrent , 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.35 and 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 [facility] [place] [address] [id number] [address] [place] [phone] Feb, Generalized anxiety disorder 300.02 and Depressive disorder, not elsewhere classified 311 [facility] [address] [id number] [address] [place] [id number] 07 Feb, 2015 Dental examination V72.2 [facility] [place] [address] [facility] [id number] [address] [place] [id number] 09 Jan, 2015 Generalized anxiety disorder 300.02 and Depressive disorder, not elsewhere classified 311 [facility] [place] [address] [facility] [id number] [address] [place] [phone] Jan, [facility] [place] [address] [facility] [id number] [address] [place] [id number] December, Generalized anxiety disorder 300.02 and Depressive disorder, not elsewhere classified 311 [facility] [place] [address] [facility] [id number] [address] [place] [phone] December, Major depressive disorder, r ecurrent, unspecified 296.30 and Panic disorder with agoraphobia 300.21 [facility] [place] [address] [facility] [id number] [address] [place] [phone] Nov, [facility] [place] [address] [facility] [id number] [address] [place] [phone] Nov, [facility] [place] [address] [facility] [id number] [address] [place] [phone] Oct, [facility] [place] [address] [facility] [id number] [address] [place] [phone] Oct, [facility] [place] [address] [facility] [id number] [address] [place] [phone] Oct, [facility] [place] [address] [facility] [id number] [address] [place] [id number] Oct, [facility] [place] [address] [facility] [id number] [address] [place] [phone] Sep, [facility] [place] [address] [facility] [id number] [address] [place] [phone] Sep, [facility] [place] [address] [facility] [id number] [address] [place] [phone] Sep, 2014 [facility] [address] [id number] [address] [place] [address], [place] [address] Sep, 2014 [facility] [address] [id number] [address] [place] [address], [place] [address] Sep, 2014 [facility] [address] [id number] [address] [place] [address], [place] [address] Sep, 2014 [facility] [address] [id number] [address] [place] [address], [place] [address] Sep, 2014 [facility] [address] [id number] [address] [place] [address], [place] [address] Sep, 2014 [facility] [address] [id number] [address] [place] [address], [place] [address] Sep, 2014 [facility] [address] [id number] [address] [place] [address], [place] [address] Sep, 2014 [facility] [address] [id number] [address] [place] [address], [place] [address] Aug, [facility] [address] [id number] [address] [place] [address], [place] [address] Aug, [facility] [address] [id number] [address] [place] [address], [place] [address] Jul, [facility] [address] [id number] [address] [place] [address], [place] [address] Jul, [facility] [address] [id number] [address] [place] [address], [place] [address] 18 Jul, 2014 [facility] [address] [id number] [address] [place] [address], [place] [address] Jul, [facility] [address] [id number] [address] [place] [address], [place] [address] Jul, [facility] [address] [id number] [address] [place] [address], [place] [address] Jul, [facility] [address] [id number] [address] [place] [address], [place] [address] 05 Jul, 2014 [facility] [address] [id number] [address] [place] [address], [place] [address] Jul, [facility] [address] [id number] [address] [place] [address], [place] [address] Jul, [facility] [address] [id number] [address] [place] [address], [place] [address] Jul, [facility] [address] [id number] [address] [place] [address], [place] [address] Jul, [facility] [address] [id number] [address] [place] [address], [place] [address] Jul, [facility] [address] [id number] [address] [place] [address], [place] [address] Jun, [facility] [address] [id number] [address] [place] [address], [place] [address] Jun, [facility] [address] [id number] [address] [place] [address], [place] [address] May, [facility] [address] [id number] [address] [place] [address], [place] [address] May, [facility] [address] [id number] [address] [place] [address], [place] [address] May, [facility] [address] [id number] [address] [place] [address], [place] [address] May, [facility] [address] [id number] [address] [place] [address], [place] [address] May, [facility] [address] [id number] [address] [place] [address], [place] [address] May, [facility] [address] [id number] [address] [place] [address], [place] [address] May, [facility] [address] [id number] [address] [place] [address], [place] [address] May, [facility] [address] [id number] [address] [place] [address], [place] [address] May, [facility] [address] [id number] [address] [place] [address], [place] [address] May, [facility] [address] [id number] [address] [place] [address], [place] [address] May, [facility] [address] [id number] [address] [place] [address], [place] [address] May, [facility] [address] [id number] [address] [place] [address], [place] [address] 30 Apr, 2014 [facility] [address] [id number] [address] [place] [address], [place] [address] 30 Apr, 2014 [facility] [address] [id number] [address] [place] [address], [place] [address] Apr, 2013 [facility] [address] [id number] [address] [place] [address], [place] [address] Apr, [facility] [address] [id number] [address] [place] [address], [place] [address] Apr, [facility] [address] [id number] [address] [place] [address], [place] [address] Apr, [facility] [address] [id number] [address] [place] [address], [place] [address] Feb, [facility] [address] [id number] [address] [place] [address], [place] [address] Feb, [facility] [address] [id number] [address] [place] [address], [place] [address] Feb, [facility] [address] [id number] [address] [place] [address], [place] [address] Feb, [facility] [address] [id number] [address] [place] [address], [place] [address] Feb, [facility] [address] [id number] [facility] [place] [address] Feb, [facility] [address] [id number] [address] [place] [address], [place] [address] Jan, [facility] [address] [id number] [facility] [place] [address] Jan, [facility] [address] [id number] [address] [place] [address], [place] [address] Jan, [facility] [address] [id number] [address] [place] [address], [place] [address] Jan, [facility] [address] [id number] [address] [place] [address], [place] [address] Jan, [facility] [address] [id number] [address] [place] [address], [place] [address] Jan, [facility] [address] [id number] [address] [place] [address], [place] [address] Jan, [facility] [address] [id number] [address] [place] [address], [place] [address] Jan, [facility] [address] [id number] [address] [place] [address], [place] [address] December, [facility] [address] [id number] [address] [place] [address], [place] [address] December, [facility] [address] [id number] [address] [place] [address], [place] [address] December, [facility] [address] [id number] [address] [place] [address], [place] [address] December, [facility] [address] [id number] [address] [place] [address], [place] [address] Nov, [facility] [address] [id number] [address] [place] [address], [place] [address] Nov, [facility] [address] [id number] [address] [place] [address], [place] [address] Nov, [facility] [address] [id number] [address] [place] [address], [place] [address] Nov, [facility] [address] [id number] [address] [place] [address], [place] [address] Nov, [facility] [address] [id number] [address] [place] [address], [place] [address] Nov, [facility] [address] [id number] [address] [place] [address], [place] [address] Nov, [facility] [address] [id number] [address] [place] [address], [place] [address] Nov, [facility] [address] [id number] [address] [place] [address], [place] [address] Oct, [facility] [address] [id number] [address] [place] [address], [place] [address] Oct, [facility] [address] [id number] [address] [place] [address], [place] [address] Sep, [facility] [address] [id number] [address] [place] [address], [place] [address] Sep, [facility] [address] [id number] [address] [place] [id number] Sep, [facility] [address] [id number] [address] [place] [address], [place] [address] Sep, [facility] [address] [id number] [address] [place] [id number] Sep, [facility] [address] [id number] [address] [place] [address], [place] [address] Sep, [facility] [address] [id number] [address] [place] [address], [place] [address] Aug, [facility] [address] [id number] [address] [place] [address], [place] [address] Aug, [facility] [address] [id number] [address] [place] [address], [place] [address] Aug, [facility] [address] [id number] [address] [place] [address], [place] [address] Aug, [facility] [address] [id number] [address] [place] [address], [place] [address] Jul, [facility] [address] [id number] [address] [place] [address], [place] [address] Jul, [facility] [address] [id number] [address] [place] [address], [place] [address] Jul, [facility] [address] [id number] [address] [place] [address], [place] [address] Jul, [facility] [address] [id number] [address] [place] [address], [place] [address] Jun, [facility] [address] [id number] [address] [place] [address], [place] [address] Jun, [facility] [address] [id number] [address] [place] [address], [place] [address] May, [facility] [address] [id number] [address] [place] [address], [place] [address] 24 May, 2013 [facility] [address] [id number] [address] [place] [address], [place] [address] May, [facility] [address] [id number] [address] [place] [address], [place] [address] May, [facility] [address] [id number] [address] [place] [address], [place] [address] May, [facility] [address] [id number] [address] [place] [address], [place] [address] 17 Apr, 2013 [facility] [address] [id number] [address] [place] [address], [place] [address] Apr, [facility] [address] [id number] [address] [place] [address], [place] [address] Mar, [facility] [address] [id number] [address] [place] [address], [place] [address] Mar, [facility] [address] [id number] [address] [place] [address], [place] [address] Mar, [facility] [address] [id number] [address] [place] [address], [place] [address] Mar, [facility] [address] [id number] [address] [place] [address], [place] [address] Feb, [facility] [address] [id number] [address] [place] [address], [place] [address] Feb, [facility] [address] [id number] [address] [place] [address], [place] [address] Feb, [facility] [address] [id number] [address] [place] [address], [place] [address] Feb, [facility] [address] [id number] [address] [place] [address], [place] [address] Feb, [facility] [address] [id number] [address] [place] [address], [place] [address] Jan, [facility] [address] [id number] [address] [place] [address], [place] [address] Jan, [facility] [address] [id number] [address] [place] [address], [place] [address] Jan, [facility] [address] [id number] [address] [place] [address], [place] [address] Jan, [facility] [address] [id number] [address] [place] [address], [place] [address] Jan, [facility] [address] [id number] [address] [place] [address], [place] [address] December, [facility] [address] [id number] [address] [place] [address], [place] [address] December, [facility] [address] [id number] [address] [place] [address], [place] [address] 17 Nov, 2012 [facility] [address] [id number] [address] [place] [address], [place] [address] 02 Nov, 2012 [facility] [address] [id number] [address] [place] [address], [place] [address] 19 Oct, 2012 [facility] [address] [id number] [address] [place] [address], [place] [address] 13 Oct, 2012 [facility] [address] [id number] [address] [place] [address], [place] [address] 05 Oct, 2012 [facility] [address] [id number] [address] [place] [address], [place] [address] 14 Sep, 2012 [facility] [address] [id number] [address] [place] [address], [place] [address] 24 Aug, 2012 [facility] [address] [id number] [address] [place] [address], [place] [address] 16 Aug, 2012 [facility] [address] [id number] [address] [place] [address], [place] [address] 15 Aug, 2012 [facility] [address] [id number] [address] [place] [address], [place] [address] Aug, [facility] [address] [id number] [address] [place] [address], [place] [address] Jul, [facility] [address] [id number] [address] [place] [address], [place] [address] Jul, [facility] [address] [id number] [address] [place] [address], [place] [address] Jul, [facility] [address] [id number] [address] [place] [address], [place] [address] Jul, [facility] [address] [id number] [address] [place] [address], [place] [address] Jul, [facility] [address] [id number] [address] [place] [address], [place] [address] Jul, [facility] [address] [id number] [address] [place] [address], [place] [address] Jul, [facility] [address] [id number] [address] [place] [address], [place] [address] Jul, [facility] [address] [id number] [address] [place] [address], [place] [address] Jun, [facility] [address] [id number] [address] [place] [address], [place] [address] Jun, [facility] [address] [id number] [address] [place] [address], [place] [address] Jun, [facility] [address] [id number] [address] [place] [address], [place] [address] Jun, [facility] [address] [id number] [address] [place] [address], [place] [address] Jun, [facility] [address] [id number] [address] [place] [address], [place] [address] Jun, [facility] [address] [id number] [address] [place] [address], [place] [address] May, [facility] [address] [id number] [address] [place] [address], [place] [address] May, [facility] [address] [id number] [address] [place] [address], [place] [address] May, [facility] [address] [id number] [address] [place] [address], [place] [address] May, [facility] [address] [id number] [address] [place] [address], [place] [address] Apr, [facility] [address] [id number] [address] [place] [address], [place] [address] Apr, [facility] [address] [id number] [address] [place] [address], [place] [address] Mar, [facility] [address] [id number] [address] [place] [address], [place] [address] Jan, [facility] [address] [id number] [address] [place] [address], [place] [address] 20 Jan, 2012 [facility] [address] [id number] [address] [place] [address], [place] [address] 16 Jan, 2012 [facility] [address] [id number] [address] [place] [address], [place] [address] 15 Jan, 2012 [facility] [address] [id number] [address] [place] [address], [place] [address] 14 Jan, 2012 [facility] [address] [id number] [address] [place] [address], [place] [address] 14 Jan, 2012 [facility] [address] [id number] [address] [place] [address], [place] [address] 07 Jan, 2012 [facility] [address] [id number] [address] [place] [address], [place] [address] December, [facility] [address] [id number] [address] [place] [address], [place] [address] December, [facility] [address] [id number] [address] [place] [address], [place] [address] December, [facility] [address] [id number] [address] [place] [address], [place] [address] December, [facility] [address] [id number] [address] [place] [address], [place] [address] Nov, [facility] [address] [id number] [address] [place] [address], [place] [address] 05 Nov, 2011 [facility] [address] [id number] [address] [place] [address], [place] [address] 29 Oct, 2011 [facility] [address] [id number] [address] [place] [address], [place] [address] 28 Oct, 2011 [facility] [address] [id number] [address] [place] [address], [place] [address] 15 Oct, 2011 [facility] [address] [id number] [address] [place] [address], [place] [address] Sep, [facility] [address] [id number] [address] [place] [address], [place] [address] Sep, [facility] [address] [id number] [address] [place] [address], [place] [address] Sep, [facility] [address] [id number] [address] [place] [address], [place] [address] Aug, [facility] [address] [id number] [address] [place] [address], [place] [address] Aug, [facility] [address] [id number] [address] [place] [address], [place] [address] Aug, [facility] [address] [id number] [address] [place] [address], [place] [address] Aug, [facility] [address] [id number] [address] [place] [address], [place] [address] Aug, [facility] [address] [id number] [address] [place] [address], [place] [address] Aug, [facility] [address] [id number] [address] [place] [address], [place] [address] Aug, [facility] [address] [id number] [address] [place] [address], [place] [address] Jul, [facility] [address] [id number] [address] [place] [address], [place] [address] Jul, [facility] [address] [id number] [address] [place] [address], [place] [address] Jun, [facility] [address] [id number] [address] [place] [address], [place] [address] Jun, [facility] [address] [id number] [address] [place] [address], [place] [address] 17 Jun, 2011 [facility] [address] [id number] [address] [place] [address], [place] [address] 15 Jun, 2011 [facility] [address] [id number] [address] [place] [address], [place] [address] 14 Jun, 2011 [facility] [address] [id number] [address] [place] [address], [place] [address] 14 Jun, 2011 [facility] [address] [id number] [address] [place] [address], [place] [address] 07 Jun, 2011 [facility] [address] [id number] [address] [place] [address], [place] [address] Jun, [facility] [address] [id number] [address] [place] [address], [place] [address] Jun, [facility] [address] [id number] [address] [place] [address], [place] [address] Jun, [facility] [address] [id number] [address] [place] [address], [place] [address] May, [facility] [address] [id number] [address] [place] [address], [place] [address] May, [facility] [address] [id number] [address] [place] [address], [place] [address] May, [facility] [address] [id number] [address] [place] [address], [place] [address] 24 May, 2011 [facility] [address] [id number] [address] [place] [address], [place] [address] May, [facility] [address] [id number] [address] [place] [address], [place] [address] May, [facility] [address] [id number] [address] [place] [address], [place] [address] Feb, [facility] [address] [id number] [address] [place] [address], [place] [address] December, [facility] [address] [id number] [address] [place] [address], [place] [address] Jul, [facility] [address] [id number] [address] [place] [address], [place] [address] 29 Jul, 2010 [facility] [place] [address] [id number] [address] [place] [id number] Jul, [facility] [place] [address] [id number] [address] [place] [id number] Jul, [facility] [place] [address] [id number] [address] [place] [id number] Jun, [facility] [place] [address] [id number] [address] [place] [id number] Jul, [facility] [place] [address] [id number] [address] [place] [id number] Jul, [facility] [place] [address] [id number] [address] [place] [id number] Jul, [facility] [place] [address] [id number] [address] [place] [id number] Jul, [facility] [place] [address] [id number] [address] [place] [phone] Jul, [facility] [place] [address] [id number] [address] [place] [id number] Jul, [facility] [place] [address] [id number] [address] [place] [id number] Jan, [facility] [place] [address] [id number] [address] [place] [id number] 16 Sep, 2008 [facility] [place] [address] [id number] [address] [place] [id number] 11 Sep, 2008 IMMUNIZATIONS No Known Immunizations SOCIAL HISTORY Never Assessed REASON FOR VISIT PLAN OF CARE VITAL SIGNS Height 66 in 2014-09-20 Weight 214 lbs 2014-09-20 Temperature 98.4 degrees Fahrenheit 2014-09-20 Heart Rate 76 bpm 2014-09-20 Respiratory Rate 28 2014-09-20 Blood pressure systolic 114 mmHg 2014-09-20 Blood pressure diastolic 80 mmHg 2014-09-20 MEDICATIONS Unknown Medications RESULTS No Results PROCEDURES [...]
--- OUTSIDE RECORDS SUMMARY | 2020-01-27 10:18 | XMS REPORT ---
Author Author Silvia MERCHANT Organization [facility] Address [address] [place] [address] Care Team Providers Care Battery Checker Name Role Phone KVNG MERCHANT Unavailable PROBLEMS Type Condition ICD9-CM Code [id number] Code Onset Dates Condition S tatus SNOMED Code Problem Hypertension I10 Active 1449871 3 Problem Generalized anxiety disorder F41.1 A ctive 180208959 Problem History of colon polyps Z86.010 Active 718532038 Problem History of diverticulitis Z87.19 Acti ve 107474179117223 Problem Family history of diabetes mellitus Z83.3 Active 608114896 Problem Excessive and frequent menstruation with irregular cycle N92.1 Active 955574099 Problem Hot flashes N95.1 Active 96644249 8 Problem Gastroesophageal reflux disease with esophagitis K 21.0 Active 492680733 Problem History of ovarian cyst Z87.42 Active 79232144 Problem Diverticulitis K57.92 Active 45350 6006 Problem Dense breast tissue R92.2 Active 099513372 Problem Perimenopausal N95.1 Active 60148 4695160557 Problem Mitral valve prolapse I34.1 Active 426585574 Problem Abnormal uterine bleeding (AUB) N93.9 Active 17806975286762 Problem Tachycardia R00.0 Active 1046104 ALLERGIES No Information ENCOUNTERS Encounter Location Date Diagnosis [facility] [address] [facility] [id number] [address] [place] [phone] Mar, [facility] [address] [facility] [id number] [address] [place] [address] Mar, [facility] [address] [facility] [id number] [address] [place] [address] Feb, [facility] [address] [facility] [id number] [address] [place] [address] Feb, Generalized anxiety disorder F41.1 [facility] [address] [id number] [address] [place] [address] Feb, Generalized anxiety disorder F41.1 and Bereavement Z63.4 [facility] [address] [id number] [address] [place] [address] Jan, [facility] [address] [facility] [id number] [address] [place] [address] Jan, Breast cancer screening by trenton crenshaw Z12.31 [facility] [address] [id number] [address] [place] [address] Jan, Generalized anxiety disorder F41.1 and Bereavement Z63.4 [facility] [address] [facility] [id number] [address] [place] [address] Jan, [facility] [address] [facility] [id number] [address] [place] [address] December, Generalized anxiety disorder F41.1 and Bereavement Z63.4 [facility] [address] [facility] [id number] [address] [place] [address] December, Diverticulitis K57.92 ; Dysu nick R30.0 ; Other constipation K59.09 and Lower abdominal pain R10.30 [facility] [address] [facility] [id number] [address] [place] [address] Nov, Diverticulitis K57.92 [facility] [address] [facility] [id number] [address] [place] [address] Nov, Generalized anxiety disorder F41.1 and Bereavement Z63.4 [facility] [address] [facility] [id number] [address] [place] [address] Nov, Generalized anxiety disorder F41.1 and Bereavement Z63.4 [facility] [address] [facility] [id number] [address] [place] [address] Nov, Diverticulitis K57.92 [facility] [address] [facility] [id number] [address] [place] [address] Oct, Diverticulitis K57.92 [facility] [address] [facility] [id number] [address] [place] [address] Oct, Diverticulitis K57.92 [facility] [address] [facility] [id number] [address] [place] [address] Oct, Generalized anxiety disorder F41.1 [facility] [address] [facility] [id number] [address] [place] [address] Oct, Right lower quadrant abdomin al pain R10.31 and Diverticulitis K57.92 [facility] [address] [facility] [id number] [address] [place] [address] Sep, Generalized anxiety disorder F41.1 and Bereavement Z63.4 [facility] [address] [facility] [id number] [address] [place] [address] Aug, [facility] [address] [facility] [id number] [address] [place] [address] Aug, Generalized anxiety disorder F41.1 and Bereavement Z63.4 [facility] [address] [place], [place] [address] [place] [address] Aug, Caries K02.9 [facility] [address] [place] [id number] [address] [place] [address] Jul, Generalized anxiety disorder F41.1 and Bereavement Z63.4 [facility] [address] [facility] [id number] [address] [place] [address] Jul, Other acute gastritis withou t hemorrhage K29.00 ; Generalized anxiety disorder F41.1 ; Tachycardia R00.0 and Essential hypertension I10 [facility] [address] [facility] [id number] [address] [place] [address] Jul, Generalized anxiety disorder F41.1 and Bereavement Z63.4 [facility] [address] [facility] [id number] [address] [place] [address] Jun, Generalized anxiety disorder F41.1 and Bereavement Z63.4 [facility] [address] [facility] [id number] [address] [place] [address] Jun, Generalized anxiety disorder F41.1 and Bereavement Z63.4 [facility] [address] [id number] [address] [address] Jun, Dental examination Z01.20 [facility] [address] [facility] [id number] [address] [place] [address] May, Generalized anxiety disorder F41.1 and Bereavement Z63.4 [facility] [address] [facility] [id number] [address] [place] [address] May, Encounter for immunization Z 23 [facility] [address] [facility] [id number] [address] [place] [address] May, Generalized anxiety disorder F41.1 and Bereavement Z63.4 [facility] [address] [facility] [id number] [address] [place] [address] May, [facility] [address] [facility] [id number] [address] [place] [address] 24 Apr, 2018 Generalized anxiety disorder F41.1 and Bereavement Z63.4 [facility] [address] [facility] [id number] [address] [place] [address] 17 Apr, 2018 [facility] [address] [facility] [id number] [address] [place] [address] 13 Apr, 2018 Diverticulitis K57.92 [facility] [address] [id number] [address] [place] [address] 10 Apr, 2018 Generalized anxiety disorder F41.1 and Bereavement Z63.4 [facility] [address] [id number] [address] [place] [address] Mar, [facility] [address] [facility] [id number] [address] [place] [address] Mar, Diverticulitis K57.92 [facility] [address] [facility] [id number] [address] [place] [address] Mar, Generalized anxiety disorder F41.1 and Bereavement Z63.4 [facility] [address] [facility] [id number] [address] [place] [address] Mar, Hypertension I10 [facility] [address] [facility] [id number] [address] [place] [address] Mar, Generalized anxiety disorder F41.1 and Bereavement Z63.4 [facility] [address] [facility] [id number] [address] [place] [address] Feb, Generalized anxiety disorder F41.1 and Bereavement Z63.4 [facility] [address] [facility] [id number] [address] [place] [address] Feb, [facility] [address] [facility] [id number] [address] [place] [address] Feb, Generalized anxiety disorder F41.1 and Bereavement Z63.4 [facility] [address] [facility] [id number] [address] [place] [address] Feb, Generalized anxiety disorder F41.1 and Bereavement Z63.4 [facility] [address] [facility] [id number] [address] [place] [address] Jan, Hypertension I10 and Acute n on-recurrent maxillary sinusitis J01.00 [facility] [address] [facility] [id number] [address] [place] [address] December, [facility] [address] [facility] [id number] [address] [place] [address] December, Hypertension I10 [facility] [address] [facility] [id number] [address] [place] [address] December, Generalized anxiety disorder F41.1 [facility] [address] [facility] [id number] [address] [place] [address] Oct, Encounter for dental examina tion Z01.20 [facility] [address] [id number] [address] [address] 06 Oct, 2017 Encounter for dental examina tion Z01.20 [facility] [address] [id number] [address] [address] 02 Oct, 2017 Dental examination Z01.20 [facility] [address] [id number] [address] [place] [address] Oct, Generalized anxiety disorder F41.1 [facility] [address] [id number] [address] [place] [address] Aug, Dental examination Z01.20 [facility] [address] [id number] [address] [place] [address] Aug, Generalized anxiety disorder F41.1 [facility] [address] [id number] [address] [place] [address] Aug, [facility] [address] [id number] [address] [place] [address] Aug, Encounter for dental examina tion Z01.20 [facility] [address] [id number] [address] [place] [address] Aug, Subacute maxillary sinusitis J01.00 [facility] [address] [id number] [address] [place] [address] Jul, Dental examination Z01.20 [facility] [address] [id number] [address] [place] [address] Jul, Generalized anxiety disorder F41.1 [facility] [address] [id number] [address] [place] [address] Jul, Diverticulitis K57.92 [facility] [address] [id number] [address] [place] [address] Jun, Encounter for immunization Z 23 [facility] [address] [id number] [address] [place] [address] Jun, Dental examination Z01.20 [facility] [address] [id number] [address] [place] [address] 14 Jun, 2017 Generalized anxiety disorder F41.1 [facility] [address] [id number] [address] [place] [address] 07 Jun, 2017 Dental examination Z01.20 [facility] [address] [id number] [address] [place] [address] May, [facility] [address] [id number] [address] [place] [id number] May, Dental examination Z01.20 [facility] [address] [id number] [address] [place] [address] [id number] May, Dental examination Z01.20 [facility] [address] [id number] [address] [place] [place] [address] May, Dental examination Z01.20 [facility] [address] [id number] [address] [place] [address] May, [facility] [address] [id number] [address] [place] [address] May, Generalized anxiety disorder F41.1 [facility] [address] [id number] [address] [place] [address] 05 May, 2017 Localized edema R60.0 ; Yeas t vaginitis B37.3 and Gastroesophageal reflux disease with esophagitis K21.0 [facility] [address] [id number] [address] [place] [address] [id number] Apr, Dental examination Z01.20 [facility] [address] [id number] [address] [place] [address] 21 Apr, 2017 Dental examination Z01.20 [facility] [address] [id number] [address] [place] [address] Apr, Dental examination Z01.20 [facility] [address] [id number] [address] [place] [address] Mar, Dyspepsia R10.13 [facility] [address] [id number] [address] [place] [address] Mar, Generalized anxiety disorder F41.1 [facility] [address] [id number] [address] [place] [address] Mar, Encounter for dental examina tion Z01.20 [facility] [address] [id number] [address] [place] [address] [id number] Mar, [facility] [address] [id number] [address] [place] [address] [id number] Mar, Dental examination Z01.20 [facility] [address] [id number] [address] [place] [address] Feb, Hypertension I10 and Tachyca rdia R00.0 [facility] [address] [id number] [address] [place] [address] Feb, [facility] [address] [id number] [address] [place] [address] Feb, Generalized anxiety disorder F41.1 [facility] [address] [id number] [address] [place] [address] [id number] Feb, Dental examination Z01.20 [facility] [address] [id number] [address] [place] [address] Jan, Generalized anxiety disorder F41.1 [facility] [address] [id number] [address] [place] [address] December, Generalized anxiety disorder F41.1 [facility] [address] [id number] [address] [place] [address] [id number] December, Encounter for dental examina tion Z01.20 [facility] [address] [id number] [address] [place] [address] Nov, [facility] [id number] [place] [address] Nov, [facility] [id number] [place] [address] Nov, Generalized anxiety disorder F41.1 [facility] [id number] [place] [address] Oct, [facility] [address] [place] [id number] [address] [place] [address] [id number] Oct, Dental examination Z01.20 [facility] [address] [address] Oct, Vaginal dryness N89.8 [place] [address] [place] [id number] [address] [place] [address] Oct, Pseudoseizures F44.5 [facility] [id number] [place] [address] Oct, Generalized anxiety disorder F41.1 [facility] [address] [place] [id number] [address] [place] [address] 28 Sep, 2016 Abnormal uterine bleeding (A UB) N93.9 ; Vaginal dryness N89.8 and Screening breast examination Z12.39 [place] [address] [place] [id number] [address] [place] [address] Sep, Dental examination Z01.20 [facility] [address] [place] [id number] [address] [place] [address] Sep, Generalized anxiety disorder F41.1 [facility] [address] [place] [id number] [address] [place] [address] 06 Sep, 2016 Unspecified ovarian cyst, ri ght side N83.201 ; Unspecified ovarian cyst, left side N83.202 ; Yeast infection of the vagina B37.3 ; Mitral valve prolapse I34.1 and Hypertension I10 [facility] [address] [place] [id number] [address] [place] [address] Aug, Generalized anxiety disorder F41.1 [facility] [address] [facility] [id number] [address] [place] [address] 28 Jul, 2016 [facility] [address] [facility] [id number] [address] [place] [address] Jul, Generalized anxiety disorder F41.1 [facility] [address] [facility] [id number] [address] [place] [address] Jun, Generalized anxiety disorder F41.1 [facility] [address] [facility] [id number] [address] [place] [address] 28 May, 2016 Encounter for immunization Z 23 [facility] [address] [facility] [id number] [address] [place] [address] 17 May, 2016 Generalized anxiety disorder F41.1 and Depressive disorder, not elsewhere classified F32.9 [facility] [address] [facility] [id number] [address] [place] [address] 28 Apr, 2016 Hypertension I10 [facility] [address] [facility] [id number] [address] [place] [address] 22 Apr, 2016 Cervicalgia M54.2 [facility] [address] [facility] [id number] [address] [place] [address] 12 Apr, 2016 Cervicalgia M54.2 [facility] [address] [place] [id number] [address] [place] [address] 09 Mar, 2016 Generalized anxiety disorder F41.1 and Depressive disorder, not elsewhere classified F32.9 [facility] [address] [facility] [id number] [address] [place] [address] [id number] 14 Feb, 2016 Visit for dental examination Z01.20 [facility] [address] [facility] [id number] [address] [place] [address] 11 Feb, 2016 Pseudoseizures F44.5 ; Migra ine without status migrainosus, not intractable, unspecified migraine type G43.909 and Essential hypertension I10 [facility] [address] [place] [id number] [address] [place] [address] [id number] Feb, Dental examination Z01.20 [place] [address] [facility] [id number] [address] [place] [address] Feb, Generalized anxiety disorder F41.1 and Depressive disorder, not elsewhere classified F32.9 [place] [address] [place] [id number] [address] [place] [address] Jan, Tachycardia R00.0 [place] [address] [facility] [id number] [address] [place] [address] December, Eustachian tube dysfunction, bilateral H69.83 [place] [address] [place] [id number] [address] [place] [address] December, Generalized anxiety disorder F41.1 and Depressive disorder, not elsewhere classified F32.9 [place] [address] [place] [id number] [address] [place] [address] Nov, [place] [address] [place] [id number] [address] [place] [address] Nov, [place] [address] [address] Nov, Hypertension I10 ; Onychomyc osis B35.1 [...] and Complex cyst of left ovary N83.29 [facility] [address] [place] [id number] [address] [place] [address] 14 Nov, 2015 Sinusitis J32.9 [place] [address] [place] [id number] [address] [place] [address] Oct, Complex cyst of left ovary N 83.29 [facility] [address] [facility] [id number] [address] [place] [address] Oct, Onychomycosis B35.1 [facility] [address] [facility] [id number] [address] [place] [address] [id number] 17 Oct, 2015 Dental examination Z01.20 [facility] [address] [place] [id number] [address] [place] [address] 09 Oct, 2015 Well woman exam Z01.419 [...] R92.2 and History of colon polyps Z86.010 [place] [address] [place] [address] Oct, Generalized anxiety disorder F41.1 and Depressive disorder, not elsewhere classified F32.9 [place] [address] [place] [id number] [address] [place] [address] Sep, Hypertension I10 and Onychom ycosis B35.1 [place] [address] [place] [id number] [address] [place] [address] 16 Sep, 2015 Skin tags, multiple acquired L91.8 [place] [address] [place] [id number] [address] [place] [address] Aug, [place] [address] [address] Aug, [place] [address] [place] [id number] [address] [place] [address] Aug, [place] [address] [address] Aug, Generalized anxiety disorder F41.1 and Depressive disorder, not elsewhere classified F32.9 [facility] [address] [id number] [address] [place] [address] Jul, Skin lesion L98.9 [facility] [address] [id number] [address] [place] [address] Jun, Generalized anxiety disorder F41.1 and Depressive disorder, not elsewhere classified F32.9 [facility] [address] [id number] [address] [place] [phone] Jun, [facility] [address] [id number] [address] [place] [address] Jun, Generalized anxiety disorder F41.1 [facility] [address] [facility] [id number] [address] [place] [address] May, Encounter for immunization Z 23 and Right shoulder pain M25.511 [facility] [address] [id number] [address] [place] [address] Apr, [facility] [address] [facility] [id number] [address] [place] [address] 14 Apr, 2015 Generalized anxiety disorder 300.02 and Depressive disorder, not elsewhere classified 311 [facility] [address] [id number] [address] [place] [address] [id number] Mar, Dental examination V72.2 [facility] [address] [id number] [address] [place] [id number] Mar, Generalized anxiety disorder 300.02 and Depressive disorder, not elsewhere classified 311 [facility] [address] [id number] [address] [place] [phone] 06 Mar, 2015 Depression, major, recurrent , 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.35 and 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 [facility] [address] [id number] [address] [place] [phone] Feb, Generalized anxiety disorder 300.02 and Depressive disorder, not elsewhere classified 311 [facility] [address] [id number] [address] [place] [id number] 07 Feb, 2015 Dental examination V72.2 [facility] [address] [facility] [id number] [address] [place] [id number] 09 Jan, 2015 Generalized anxiety disorder 300.02 and Depressive disorder, not elsewhere classified 311 [facility] [address] [facility] [id number] [address] [place] [phone] Jan, [facility] [address] [facility] [id number] [address] [place] [id number] December, Generalized anxiety disorder 300.02 and Depressive disorder, not elsewhere classified 311 [facility] [address] [facility] [id number] [address] [place] [phone] December, Major depressive disorder, r ecurrent, unspecified 296.30 and Panic disorder with agoraphobia 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 [facility] [address] [facility] [id number] [address] [place] [id number] Nov, [facility] [address] [facility] [id number] [address] [place] [address] Nov, [facility] [address] [facility] [id number] [address] [place] [address] Oct, [facility] [address] [facility] [id number] [address] [place] [address] Oct, [facility] [address] [facility] [id number] [address] [place] [address] Oct, [facility] [address] [facility] [id number] [address] [place] [address] Oct, [facility] [address] [facility] [id number] [address] [place] [address] Sep, [facility] [address] [facility] [id number] [address] [place] [address] Sep, [facility] [address] [facility] [id number] [address] [place] [address] Sep, [facility] [address] [id number] [address] [place] [address], [place] [address] Sep, 2014 [facility] [address] [id number] [address] [place] [address], [place] [address] Sep, 2014 [facility] [address] [id number] [address] [place] [address], [place] [address] Sep, 2014 [facility] [address] [id number] [address] [place] [address], [place] [address] Sep, 2014 [facility] [address] [id number] [address] [place] [address], [place] [address] Sep, 2014 [facility] [address] [id number] [address] [place] [address], [place] [address] Sep, 2014 [facility] [address] [id number] [address] [place] [address], [place] [address] Sep, 2014 [facility] [address] [id number] [address] [place] [address], [place] [address] Aug, [facility] [address] [id number] [address] [place] [address], [place] [address] Aug, [facility] [address] [id number] [address] [place] [address], [place] [address] Jul, [facility] [address] [id number] [address] [place] [address], [place] [address] Jul, [facility] [address] [id number] [address] [place] [address], [place] [address] Jul, [facility] [address] [id number] [address] [place] [address], [place] [address] Jul, [facility] [address] [id number] [address] [place] [address], [place] [address] Jul, [facility] [address] [id number] [address] [place] [address], [place] [address] Jul, [facility] [address] [id number] [address] [place] [address], [place] [address] 05 Jul, 2014 [facility] [address] [id number] [address] [place] [address], [place] [address] Jul, [facility] [address] [id number] [address] [place] [address], [place] [address] Jul, [facility] [address] [id number] [address] [place] [address], [place] [address] Jul, [facility] [address] [id number] [address] [place] [address], [place] [address] Jul, [facility] [address] [id number] [address] [place] [address], [place] [address] Jul, [facility] [address] [id number] [address] [place] [address], [place] [address] Jun, [facility] [address] [id number] [address] [place] [address], [place] [address] Jun, [facility] [address] [id number] [address] [place] [address], [place] [address] May, [facility] [address] [id number] [address] [place] [address], [place] [address] May, [facility] [address] [id number] [address] [place] [address], [place] [address] May, [facility] [address] [id number] [address] [place] [address], [place] [address] May, [facility] [address] [id number] [address] [place] [address], [place] [address] May, [facility] [address] [id number] [address] [place] [address], [place] [address] May, [facility] [address] [id number] [address] [place] [address], [place] [address] May, [facility] [address] [id number] [address] [place] [address], [place] [address] May, [facility] [address] [id number] [address] [place] [address], [place] [address] May, [facility] [address] [id number] [address] [place] [address], [place] [address] May, [facility] [address] [id number] [address] [place] [address], [place] [address] May, [facility] [address] [id number] [address] [place] [address], [place] [address] May, [facility] [address] [id number] [address] [place] [address], [place] [address] Apr, [facility] [address] [id number] [address] [place] [address], [place] [address] Apr, [facility] [address] [id number] [address] [place] [address], [place] [address] Apr, [facility] [address] [id number] [address] [place] [address], [place] [address] Apr, [facility] [address] [id number] [address] [place] [address], [place] [address] Apr, [facility] [address] [id number] [address] [place] [address], [place] [address] Apr, [facility] [address] [id number] [address] [place] [address], [place] [address] Feb, [facility] [address] [id number] [address] [place] [address], [place] [address] Feb, [facility] [address] [id number] [address] [place] [address], [place] [address] Feb, [facility] [address] [id number] [address] [place] [address], [place] [address] Feb, [facility] [address] [id number] [address] [place] [address], [place] [address] Feb, [facility] [address] [id number] [address] [place] [address], [place] [address] Feb, [facility] [address] [id number] [address] [place] [address], [place] [address] Jan, [facility] [address] [id number] [address] [place] [address], [place] [address] Jan, [facility] [address] [id number] [address] [place] [address], [place] [address] Jan, [facility] [address] [id number] [address] [place] [address], [place] [address] Jan, [facility] [address] [id number] [address] [place] [address], [place] [address] Jan, [facility] [address] [id number] [address] [place] [address], [place] [address] Jan, [facility] [address] [id number] [address] [place] [address], [place] [address] Jan, [facility] [address] [id number] [address] [place] [address], [place] [address] Jan, [facility] [address] [id number] [address] [place] [address], [place] [address] December, [facility] [address] [id number] [address] [place] [address], [place] [address] December, [facility] [address] [id number] [address] [place] [address], [place] [address] December, [facility] [address] [id number] [address] [place] [address], [place] [address] December, [facility] [address] [id number] [address] [place] [address], [place] [address] Nov, [facility] [address] [id number] [address] [place] [address], [place] [address] Nov, [facility] [address] [id number] [address] [place] [address], [place] [address] Nov, [facility] [address] [id number] [address] [place] [address], [place] [address] Nov, [facility] [address] [id number] [address] [place] [address], [place] [address] Nov, [facility] [address] [id number] [address] [place] [address], [place] [address] Nov, [facility] [address] [id number] [address] [place] [address], [place] [address] Nov, [facility] [address] [id number] [address] [place] [address], [place] [address] Nov, [facility] [address] [id number] [address] [place] [address], [place] [address] Oct, [facility] [address] [id number] [address] [place] [address], [place] [address] Oct, [facility] [address] [id number] [address] [place] [address], [place] [address] Sep, [facility] [address] [id number] [address] [place] [address], [place] [address] Sep, [facility] [address] [id number] [address] [place] [address] [id number] Sep, [facility] [address] [id number] [address] [place] [address], [place] [address] Sep, [facility] [address] [id number] [address] [place] [address], [place] [address] Sep, [facility] [address] [id number] [address] [place] [address], [place] [address] Sep, [facility] [address] [id number] [address] [place] [address], [place] [address] Aug, [facility] [address] [id number] [address] [place] [address], [place] [address] Aug, [facility] [address] [id number] [address] [place] [address] Aug, [facility] [address] [id number] [address] [place] [address], [place] [address] Aug, [facility] [address] [id number] [address] [place] [address], [place] [address] Jul, [facility] [address] [id number] [address] [place] [address], [place] [address] Jul, [facility] [address] [id number] [address] [place] [address], [place] [address] Jul, [facility] [address] [id number] [address] [place] [address], [place] [address] Jul, [facility] [address] [id number] [address] [place] [address], [place] [address] Jun, [facility] [address] [id number] [address] [place] [address], [place] [address] Jun, [facility] [address] [id number] [address] [place] [address], [place] [address] May, [facility] [address] [id number] [address] [place] [address], [place] [address] May, [facility] [address] [id number] [address] [place] [address], [place] [address] May, [facility] [address] [id number] [address] [place] [address], [place] [address] May, [facility] [address] [id number] [address] [place] [address] May, [facility] [address] [id number] [address] [place] [address], [place] [address] 17 Apr, 2013 [facility] [address] [id number] [address] [place] [address], [place] [address] 10 Apr, 2013 [facility] [address] [id number] [address] [place] [address], [place] [address] Mar, [facility] [address] [id number] [address] [place] [address], [place] [address] Mar, [facility] [address] [id number] [address] [place] [address], [place] [address] Mar, [facility] [address] [id number] [address] [place] [address], [place] [address] Mar, [facility] [address] [id number] [address] [place] [address], [place] [address] Feb, [facility] [address] [id number] [address] [place] [address], [place] [address] Feb, [facility] [address] [id number] [address] [place] [address], [place] [address] Feb, [facility] [address] [id number] [address] [place] [address], [place] [address] Feb, [facility] [address] [id number] [address] [place] [address], [place] [address] Feb, [facility] [address] [id number] [address] [place] [address], [place] [address] Jan, [facility] [address] [id number] [address] [place] [address], [place] [address] Jan, [facility] [address] [id number] [address] [place] [address], [place] [address] Jan, [facility] [address] [id number] [address] [place] [address], [place] [address] Jan, [facility] [address] [id number] [address] [place] [address], [place] [address] Jan, [facility] [address] [id number] [address] [place] [address], [place] [address] December, [facility] [address] [id number] [address] [place] [address], [place] [address] December, [facility] [address] [id number] [address] [place] [address], [place] [address] Nov, [facility] [address] [id number] [address] [place] [address], [place] [address] 02 Nov, 2012 [facility] [address] [id number] [address] [place] [address], [place] [address] 19 Oct, 2012 [facility] [address] [id number] [address] [place] [address], [place] [address] 13 Oct, 2012 [facility] [address] [id number] [address] [place] [address], [place] [address] 05 Oct, 2012 [facility] [address] [id number] [address] [place] [address], [place] [address] 14 Sep, 2012 [facility] [address] [id number] [address] [place] [address], [place] [address] 24 Aug, 2012 [facility] [address] [id number] [address] [place] [address], [place] [address] 16 Aug, 2012 [facility] [address] [id number] [address] [place] [address], [place] [address] 15 Aug, 2012 [facility] [address] [id number] [address] [place] [address], [place] [address] Aug, [facility] [address] [id number] [address] [place] [address], [place] [address] Jul, [facility] [address] [id number] [address] [place] [address], [place] [address] Jul, [facility] [address] [id number] [address] [place] [address], [place] [address] Jul, [facility] [address] [id number] [address] [place] [address], [place] [address] Jul, [facility] [address] [id number] [address] [place] [address], [place] [address] Jul, [facility] [address] [id number] [address] [place] [address], [place] [address] Jul, [facility] [address] [id number] [address] [place] [address] [place] [address] Jul, [facility] [address] [id number] [address] [place] [address], [place] [address] Jul, [facility] [address] [id number] [address] [place] [address], [place] [address] Jun, [facility] [address] [id number] [address] [place] [address], [place] [address] Jun, [facility] [address] [id number] [address] [place] [address], [place] [address] Jun, [facility] [address] [id number] [address] [place] [address], [place] [address] Jun, [facility] [address] [id number] [address] [place] [address], [place] [address] Jun, [facility] [address] [id number] [address] [place] [address], [place] [address] Jun, [facility] [address] [id number] [address] [place] [address], [place] [address] May, [facility] [address] [id number] [address] [place] [address], [place] [address] May, [facility] [address] [id number] [address] [place] [address], [place] [address] May, [facility] [address] [id number] [address] [place] [address], [place] [address] May, [facility] [address] [id number] [address] [place] [address], [place] [address] Apr, [facility] [address] [id number] [address] [place] [address], [place] [address] Apr, [facility] [address] [id number] [address] [place] [address], [place] [address] Mar, [facility] [address] [id number] [address] [place] [address], [place] [address] Jan, [facility] [address] [id number] [address] [place] [address], [place] [address] 20 Jan, 2012 [facility] [address] [id number] [address] [place] [address], [place] [address] 16 Jan, 2012 [facility] [address] [id number] [address] [place] [address], [place] [address] 15 Jan, 2012 [facility] [address] [id number] [address] [place] [address], [place] [address] 14 Jan, 2012 [facility] [address] [id number] [address] [place] [address], [place] [address] 14 Jan, 2012 [facility] [address] [id number] [address] [place] [address], [place] [address] 07 Jan, 2012 [facility] [address] [id number] [address] [place] [address], [place] [address] December, [facility] [address] [id number] [address] [place] [address], [place] [address] December, [facility] [address] [id number] [address] [place] [address], [place] [address] December, [facility] [address] [id number] [address] [place] [address], [place] [address] December, [facility] [address] [id number] [address] [place] [address], [place] [address] Nov, [facility] [address] [id number] [address] [place] [address], [place] [address] 05 Nov, 2011 [facility] [address] [id number] [address] [place] [address], [place] [address] 29 Oct, 2011 [facility] [address] [id number] [address] [place] [address], [place] [address] 28 Oct, 2011 [facility] [address] [id number] [address] [place] [address], [place] [address] 15 Oct, 2011 [facility] [address] [id number] [address] [place] [address], [place] [address] Sep, [facility] [address] [id number] [address] [place] [address], [place] [address] Sep, [facility] [address] [id number] [address] [place] [address], [place] [address] Sep, [facility] [address] [id number] [address] [place] [address], [place] [address] Aug, [facility] [address] [id number] [address] [place] [address], [place] [address] Aug, [facility] [address] [id number] [address] [place] [address], [place] [address] Aug, [facility] [address] [id number] [address] [place] [address], [place] [address] Aug, [facility] [address] [id number] [address] [place] [address], [place] [address] Aug, [facility] [address] [id number] [address] [place] [address], [place] [address] Aug, [facility] [address] [id number] [address] [place] [address], [place] [address] Aug, [facility] [address] [id number] [address] [place] [address], [place] [address] Jul, [facility] [address] [id number] [address] [place] [address], [place] [address] Jul, [facility] [address] [id number] [address] [place] [address], [place] [address] Jun, [facility] [address] [id number] [address] [place] [address], [place] [address] Jun, [facility] [address] [id number] [address] [place] [address], [place] [address] 17 Jun, 2011 [facility] [address] [id number] [address] [place] [address], [place] [address] 15 Jun, 2011 [facility] [address] [id number] [address] [place] [address], [place] [address] 14 Jun, 2011 [facility] [address] [id number] [address] [place] [address], [place] [address] 14 Jun, 2011 [facility] [address] [id number] [address] [place] [address], [place] [address] 07 Jun, 2011 [facility] [address] [id number] [address] [place] [address], [place] [address] 07 Jun, 2011 [facility] [address] [id number] [address] [place] [address], [place] [address] Jun, [facility] [address] [id number] [address] [place] [address], [place] [address] Jun, [facility] [address] [id number] [address] [place] [address], [place] [address] May, [facility] [address] [id number] [address] [place] [address], [place] [address] May, [facility] [address] [id number] [address] [place] [address], [place] [address] May, [facility] [address] [id number] [address] [place] [address], [place] [address] 24 May, 2011 [facility] [address] [id number] [address] [place] [address], [place] [address] May, [facility] [address] [id number] [address] [place] [address], [place] [address] May, [facility] [address] [id number] [address] [place] [address], [place] [address] Feb, [facility] [address] [id number] [address] [place] [address], [place] [address] December, [facility] [address] [id number] [address] [place] [address], [place] [address] Jul, [facility] [address] [id number] [address] [place] [address], [place] [address] Jul, [facility] [address] [id number] [address] [place] [id number] Jul, [facility] [address] [id number] [address] [place] [id number] Jul, [facility] [address] [id number] [address] [place] [id number] Jun, [facility] [address] [id number] [address] [place] [id number] Jul, [facility] [address] [id number] [address] [place] [id number] Jul, [facility] [address] [id number] [address] [place] [id number] Jul, [facility] [address] [id number] [address] [place] [address] Jul, [facility] [address] [id number] [address] [place] [address] Jul, [facility] [address] [id number] [address] [place] [id number] Jul, [facility] [address] [id number] [address] [place] [id number] Jan, [facility] [address] [id number] [address] [place] [id number] Sep, [facility] [address] [id number] [address] [place] [id number] Sep, IMMUNIZATIONS No Known Immunizations SOCIAL HISTORY Never Assessed REASON FOR VISIT PLAN OF CARE VITAL SIGNS MEDICATIONS Unknown Medications RESULTS No Results PROCEDURES Procedure Date Ordered Result Body Site PSYTX PT&/FAMILY 45 MINUTES November 08, 2014 INSTRUCTIONS MEDICATIONS ADMINISTERED No Known Medications [...]
--- OUTSIDE RECORDS SUMMARY | 2020-01-27 10:19 | XMS REPORT ---
Author Author Silvia WILKINS Organization [facility] Address [address] [place] [address] Care Team Providers Care Cement Loader Name Role Phone LETTY WILKINS Unavailable PROBLEMS Type Condition ICD9-CM Code [id number] Code Onset Dates Condition S tatus SNOMED Code Problem Hypertension I10 Active 0467798 3 Problem Generalized anxiety disorder F41.1 A ctive 180945360 Problem History of colon polyps Z86.010 Active 340917915 Problem History of diverticulitis Z87.19 Acti ve 812208032935329 Problem Family history of diabetes mellitus Z83.3 Active 924644167 Problem Excessive and frequent menstruation with irregular cycle N92.1 Active 228062964 Problem Hot flashes N95.1 Active 37915304 8 Problem Gastroesophageal reflux disease with esophagitis K 21.0 Active 227514891 Problem History of ovarian cyst Z87.42 Active 00053835 Problem Diverticulitis K57.92 Active 44670 6006 Problem Dense breast tissue R92.2 Active 882463912 Problem Perimenopausal N95.1 Active 45521 4441008696 Problem Mitral valve prolapse I34.1 Active 460796968 Problem Abnormal uterine bleeding (AUB) N93.9 Active [id number] Problem Tachycardia R00.0 Active 6753480 ALLERGIES No Information ENCOUNTERS Encounter Location Date Diagnosis [facility] [address] [facility] [id number] [address] [place] [phone] Mar, [facility] [address] [facility] [id number] [address] [place] [phone] Feb, [facility] [address] [facility] [id number] [address] [place] [phone] Feb, Generalized anxiety disorder F41.1 and Bereavement Z63.4 [place] [id number] [facility] [id number] [address] [place] [phone] 27 Jan, 2019 [facility] [address] [facility] [id number] [address] [place] [phone] 20 Jan, 2019 Breast cancer screening by trenton crenshaw Z12.31 [facility] [address] [facility] [id number] [address] [place] [phone] 13 Jan, 2019 Generalized anxiety disorder F41.1 and Bereavement Z63.4 [facility] [address] [facility] [id number] [address] [place] [phone] Jan, [facility] [address] [facility] [id number] [address] [place] [phone] December, Generalized anxiety disorder F41.1 and Bereavement Z63.4 [facility] [address] [facility] [id number] [address] [place] [address] December, Diverticulitis K57.92 ; Dysu nick R30.0 ; Other constipation K59.09 and Lower abdominal pain R10.30 [facility] [address] [facility] [id number] [address] [place] [address] Nov, Diverticulitis K57.92 [facility] [address] [facility] [id number] [address] [place] [phone] Nov, Generalized anxiety disorder F41.1 and Bereavement Z63.4 [facility] [address] [facility] [id number] [address] [place] [phone] Nov, Generalized anxiety disorder F41.1 and Bereavement Z63.4 [facility] [address] [facility] [id number] [address] [place] [phone] Nov, Diverticulitis K57.92 [facility] [address] [facility] [id number] [address] [place] [phone] Oct, Diverticulitis K57.92 [facility] [address] [facility] [id number] [address] [place] [phone] Oct, Diverticulitis K57.92 [facility] [address] [facility] [id number] [address] [place] [phone] Oct, Generalized anxiety disorder F41.1 [facility] [address] [facility] [id number] [address] [place] [phone] Oct, Right lower quadrant abdomin al pain R10.31 and Diverticulitis K57.92 [facility] [address] [facility] [id number] [address] [place] [phone] Sep, Generalized anxiety disorder F41.1 and Bereavement Z63.4 [facility] [address] [facility] [id number] [address] [place] [phone] Aug, [facility] [address] [facility] [id number] [address] [place] [phone] Aug, Generalized anxiety disorder F41.1 and Bereavement Z63.4 [facility] [address] [facility] [id number] [place] [address] Aug, Caries K02.9 [facility] [address] [facility] [id number] [address] [place] [address] Jul, Generalized anxiety disorder F41.1 and Bereavement Z63.4 [facility] [address] [facility] [id number] [address] [place] [phone] Jul, Other acute gastritis withou t hemorrhage K29.00 ; Generalized anxiety disorder F41.1 ; Tachycardia R00.0 and Essential hypertension I10 [facility] [address] [facility] [id number] [address] [place] [phone] Jul, Generalized anxiety disorder F41.1 and Bereavement Z63.4 [facility] [address] [facility] [id number] [address] [place] [phone] Jun, Generalized anxiety disorder F41.1 and Bereavement Z63.4 [facility] [address] [facility] [id number] [address] [place] [phone] Jun, Generalized anxiety disorder F41.1 and Bereavement Z63.4 [facility] [address] [id number] [address] [address] Jun, Dental examination Z01.20 [facility] [address] [facility] [id number] [address] [place] [phone] May, Generalized anxiety disorder F41.1 and Bereavement Z63.4 [facility] [address] [facility] [id number] [address] [place] [address] May, Encounter for immunization Z 23 [facility] [address] [facility] [id number] [address] [place] [phone] May, Generalized anxiety disorder F41.1 and Bereavement Z63.4 [facility] [address] [facility] [id number] [address] [place] [phone] May, [facility] [address] [facility] [id number] [address] [place] [address] 24 Apr, 2018 Generalized anxiety disorder F41.1 and Bereavement Z63.4 [facility] [address] [facility] [id number] [address] [place] [phone] 17 Apr, 2018 [facility] [address] [facility] [id number] [address] [place] [address] 13 Apr, 2018 Diverticulitis K57.92 [facility] [address] [facility] [id number] [address] [place] [phone] 10 Apr, 2018 Generalized anxiety disorder F41.1 and Bereavement Z63.4 [facility] [address] [facility] [id number] [address] [place] [phone] Mar, [facility] [address] [facility] [id number] [address] [place] [address] Mar, Diverticulitis K57.92 [facility] [address] [facility] [id number] [address] [place] [address] Mar, Generalized anxiety disorder F41.1 and Bereavement Z63.4 [facility] [address] [id number] [address] [place] [address] Mar, Hypertension I10 [facility] [address] [id number] [address] [place] [phone] Mar, Generalized anxiety disorder F41.1 and Bereavement Z63.4 [facility] [address] [id number] [address] [place] [address] Feb, Generalized anxiety disorder F41.1 and Bereavement Z63.4 [facility] [address] [id number] [address] [place] [address] Feb, [facility] [address] [id number] [address] [place] [address] Feb, Generalized anxiety disorder F41.1 and Bereavement Z63.4 [facility] [address] [id number] [address] [place] [phone] Feb, Generalized anxiety disorder F41.1 and Bereavement Z63.4 [facility] [address] [id number] [address] [place] [address] Jan, Hypertension I10 and Acute n on-recurrent maxillary sinusitis J01.00 [facility] [address] [id number] [address] [place] [phone] December, [facility] [address] [id number] [address] [place] [phone] December, Hypertension I10 [facility] [address] [id number] [address] [place] [phone] December, Generalized anxiety disorder F41.1 [facility] [address] [id number] [address] [place] [phone] 16 Oct, 2017 Encounter for dental examina tion Z01.20 [facility] [address] [id number] [place] [address] 06 Oct, 2017 Encounter for dental examina tion Z01.20 [facility] [address] [id number] [place] [address] 02 Oct, 2017 Dental examination Z01.20 [facility] [address] [id number] [address] [place] [address] Oct, Generalized anxiety disorder F41.1 [facility] [address] [id number] [place] [address] 30 Aug, 2017 Dental examination Z01.20 [facility] [address] [id number] [address] [place] [address] Aug, Generalized anxiety disorder F41.1 [facility] [address] [id number] [address] [place] [address] Aug, [facility] [address] [id number] [address] [place] [phone] Aug, Encounter for dental examina tion Z01.20 [facility] [address] [id number] [address] [place] [address] Aug, Subacute maxillary sinusitis J01.00 [facility] [address] [id number] [address] [place] [phone] Jul, Dental examination Z01.20 [facility] [address] [id number] [address] [place] [address] Jul, Generalized anxiety disorder F41.1 [facility] [address] [id number] [address] [place] [address] 11 Jul, 2017 Diverticulitis K57.92 [facility] [address] [id number] [address] [place] [address] 28 Jun, 2017 Encounter for immunization Z 23 [facility] [address] [id number] [place] [address] 22 Jun, 2017 Dental examination Z01.20 [facility] [address] [id number] [address] [place] [phone] Jun, Generalized anxiety disorder F41.1 [facility] [address] [id number] [address] [place] [address] Jun, Dental examination Z01.20 [facility] [address] [id number] [address] [place] [phone] May, [facility] [address] [id number] [address] [place] [phone] May, Dental examination Z01.20 [facility] [address] [id number] [address] [place] [address] [id number] May, Dental examination Z01.20 [facility] [address] [id number] [address] [place] [address] May, Dental examination Z01.20 [facility] [address] [id number] [address] [place] [phone] May, [facility] [address] [id number] [address] [place] [address] May, Generalized anxiety disorder F41.1 [facility] [address] [id number] [address] [place] [phone] May, Localized edema R60.0 ; Yeas t vaginitis B37.3 and Gastroesophageal reflux disease with esophagitis K21.0 [facility] [address] [id number] [address] [place] [id number] Apr, Dental examination Z01.20 [facility] [address] [id number] [place] [address] Apr, Dental examination Z01.20 [facility] [address] [id number] [address] [place] [address] Apr, Dental examination Z01.20 [facility] [address] [id number] [address] [place] [address] Mar, Dyspepsia R10.13 [facility] [address] [id number] [address] [place] [address] Mar, Generalized anxiety disorder F41.1 [facility] [address] [id number] [address] [place] [phone] Mar, Encounter for dental examina tion Z01.20 [facility] [address] [id number] [address] [place] [address] [id number] Mar, [facility] [address] [id number] [address] [place] [address] [id number] Mar, Dental examination Z01.20 [facility] [address] [id number] [address] [place] [phone] Feb, Hypertension I10 and Tachyca rdia R00.0 [facility] [address] [id number] [address] [place] [address] Feb, [facility] [address] [id number] [address] [place] [phone] Feb, Generalized anxiety disorder F41.1 [facility] [address] [id number] [address] [place] [id number] Feb, Dental examination Z01.20 [facility] [address] [id number] [address] [place] [phone] Jan, Generalized anxiety disorder F41.1 [facility] [address] [id number] [address] [place] [address] December, Generalized anxiety disorder F41.1 [facility] [address] [id number] [address] [place] [address] [phone] December, Encounter for dental examina tion Z01.20 [facility] [address] [id number] [address] [place] [phone] Nov, [facility] [address] [id number] [address] [place] [phone] Nov, [facility] [address] [id number] [address] [place] [phone] Nov, Generalized anxiety disorder F41.1 [facility] [address] [facility] [id number] [address] [place] [phone] 30 Oct, 2016 [facility] [address] [facility] [id number] [address] [place] [address] [id number] Oct, Dental examination Z01.20 [facility] [address] [facility] [id number] [address] [place] [address] Oct, Vaginal dryness N89.8 [facility] [address] [facility] [id number] [address] [place] [address] Oct, Pseudoseizures F44.5 [facility] [address] [facility] [id number] [address] [place] [address] Oct, Generalized anxiety disorder F41.1 [facility] [address] [place] [id number] [address] [place] [address] 28 Sep, 2016 Abnormal uterine bleeding (A UB) N93.9 ; Vaginal dryness N89.8 and Screening breast examination Z12.39 [facility] [address] [facility] [id number] [address] [place] [address] Sep, Dental examination Z01.20 [facility] [address] [place] [id number] [address] [place] [address] Sep, Generalized anxiety disorder F41.1 [facility] [address] [place] [id number] [address] [place] [address] 06 Sep, 2016 Unspecified ovarian cyst, ri ght side N83.201 ; Unspecified ovarian cyst, left side N83.202 ; Yeast infection of the vagina B37.3 ; Mitral valve prolapse I34.1 and Hypertension I10 [facility] [address] [place] [id number] [address] [place] [address] Aug, Generalized anxiety disorder F41.1 [facility] [address] [facility] [id number] [address] [place] [address] Jul, [facility] [address] [facility] [id number] [address] [place] [phone] Jul, Generalized anxiety disorder F41.1 [facility] [address] [place] [id number] [place] [address] 15 Jun, 2016 Generalized anxiety disorder F41.1 [facility] [address] [facility] [id number] [address] [place] [phone] 28 May, 2016 Encounter for immunization Z 23 [facility] [address] [facility] [id number] [place] [phone] 17 May, 2016 Generalized anxiety disorder F41.1 and Depressive disorder, not elsewhere classified F32.9 [facility] [address] [facility] [id number] [place] [phone] 28 Apr, 2016 Hypertension I10 [facility] [address] [place] [id number] [place] [address] 22 Apr, 2016 Cervicalgia M54.2 [facility] [address] [place] [id number] [place] [address] 12 Apr, 2016 Cervicalgia M54.2 [facility] [address] [place] [id number] [place] [address] 09 Mar, 2016 Generalized anxiety disorder F41.1 and Depressive disorder, not elsewhere classified F32.9 [facility] [id number] [place] [id number] 14 Feb, 2016 Visit for dental examination Z01.20 [facility] [address] [place] [id number] [address] [place] [address] 11 Feb, 2016 Pseudoseizures F44.5 ; Migra ine without status migrainosus, not intractable, unspecified migraine type G43.909 and Essential hypertension I10 [facility] [address] [place] [id number] [address] [place] [address] [phone] Feb, Dental examination Z01.20 [facility] [address] [place] [id number] [address] [place] [address] 05 Feb, 2016 Generalized anxiety disorder F41.1 and Depressive disorder, not elsewhere classified F32.9 [facility] [address] [facility] [id number] [address] [place] [phone] Jan, Tachycardia R00.0 [facility] [address] [facility] [id number] [address] [place] [address] December, Eustachian tube dysfunction, bilateral H69.83 [facility] [address] [facility] [id number] [address] [place] [address] December, Generalized anxiety disorder F41.1 and Depressive disorder, not elsewhere classified F32.9 [facility] [address] [facility] [id number] [address] [place] [phone] Nov, [facility] [address] [facility] [id number] [address] [place] [phone] Nov, [place] [address] [facility] [id number] [address] [place] [address] Nov, Hypertension I10 ; Onychomyc osis B35.1 [...] and Complex cyst of left ovary N83.29 [facility] [address] [facility] [id number] [address] [place] [phone] 14 Nov, 2015 Sinusitis J32.9 [facility] [address] [facility] [id number] [address] [place] [address] Oct, Complex cyst of left ovary N 83.29 [facility] [address] [facility] [id number] [address] [place] [address] Oct, Onychomycosis B35.1 [facility] [address] [id number] [address] [place] [id number] 17 Oct, 2016 Dental examination Z01.20 [place] [id number] [facility] [id number] [address] [place] [phone] 09 Oct, 2016 Well woman exam Z01.419 [...] R92.2 and History of colon polyps Z86.010 [place] [address] [facility] [id number] [address] [place] [address] 03 Oct, 2015 Generalized anxiety disorder F41.1 and Depressive disorder, not elsewhere classified F32.9 [place] [address] [place] [id number] [address] [place] [phone] Sep, Hypertension I10 and Onychom ycosis B35.1 [place] [address] [facility] [id number] [address] [place] [phone] 16 Sep, 2015 Skin tags, multiple acquired L91.8 [place] [address] [facility] [id number] [address] [place] [phone] Aug, [place] [address] [facility] [id number] [address] [place] [phone] Aug, [place] [address] [facility] [id number] [address] [place] [phone] Aug, [place] [address] [facility] [id number] [address] [place] [phone] Aug, Generalized anxiety disorder F41.1 and Depressive disorder, not elsewhere classified F32.9 [place] [address] [facility] [id number] [address] [place] [address] Jul, Skin lesion L98.9 [facility] [address] [id number] [address] [place] [phone] 12 Jun, 2015 Generalized anxiety disorder F41.1 and Depressive disorder, not elsewhere classified F32.9 [facility] [address] [id number] [address] [place] [phone] Jun, [facility] [address] [id number] [address] [place] [phone] Jun, Generalized anxiety disorder F41.1 [facility] [address] [id number] [address] [place] [phone] May, Encounter for immunization Z 23 and Right shoulder pain M25.511 [facility] [address] [id number] [address] [place] [phone] 28 Apr, 2015 [facility] [address] [id number] [address] [place] [phone] 14 Apr, 2015 Generalized anxiety disorder 300.02 and Depressive disorder, not elsewhere classified 311 [facility] [address] [id number] [address] [place] [id number] Mar, Dental examination V72.2 [facility] [address] [id number] [address] [place] [phone] Mar, Generalized anxiety disorder 300.02 and Depressive disorder, not elsewhere classified 311 [facility] [address] [id number] [address] [place] [phone] Mar, Depression, major, recurrent , 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.35 and 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 [facility] [address] [id number] [address] [place] [phone] Feb, Generalized anxiety disorder 300.02 and Depressive disorder, not elsewhere classified 311 [facility] [address] [id number] [address] [place] [phone] Feb, Dental examination V72.2 [facility] [address] [id number] [address] [place] [phone] Jan, Generalized anxiety disorder 300.02 and Depressive disorder, not elsewhere classified 311 [facility] [address] [id number] [address] [place] [phone] Jan, [facility] [address] [facility] [id number] [address] [place] [address] December, Generalized anxiety disorder 300.02 and Depressive disorder, not elsewhere classified 311 [facility] [address] [id number] [address] [place] [address] December, Major depressive disorder, r ecurrent, unspecified 296.30 and Panic disorder with agoraphobia 300.21 [facility] [address] [id number] [address] [place] [address] Nov, [facility] [address] [facility] [id number] [address] [place] [phone] Nov, [facility] [address] [facility] [id number] [address] [place] [address] Oct, [facility] [address] [facility] [id number] [address] [place] [address] Oct, [facility] [address] [facility] [id number] [address] [place] [address] Oct, [facility] [address] [facility] [id number] [address] [place] [phone] Oct, [facility] [address] [facility] [id number] [address] [place] [address] Sep, [facility] [address] [facility] [id number] [address] [place] [phone] Sep, [facility] [address] [facility] [id number] [address] [place] [phone] Sep, [facility] [address] [facility] [id number] [address] [place] [phone] Sep, [facility] [address] [facility] [id number] [address] [place] [phone] Sep, [facility] [address] [id number] [address] [place] [address], [place] [address] Sep, 2014 [facility] [address] [id number] [address] [place] [address], [place] [address] Sep, 2014 [facility] [address] [id number] [address] [place] [address], [place] [address] Sep, 2014 [facility] [address] [id number] [address] [place] [address], [place] [address] Sep, 2014 [facility] [address] [id number] [address] [place] [address], [place] [address] Sep, [facility] [address] [id number] [address] [place] [address], [place] [address] Aug, [facility] [address] [id number] [address] [place] [address], [place] [address] Aug, [facility] [address] [id number] [address] [place] [address], [place] [address] Jul, [facility] [address] [id number] [address] [place] [address], [place] [address] Jul, [facility] [address] [id number] [address] [place] [address], [place] [address] 18 Jul, 2014 [facility] [address] [id number] [address] [place] [address], [place] [address] 18 Jul, 2014 [facility] [address] [id number] [address] [place] [address], [place] [address] Jul, [facility] [address] [id number] [address] [place] [address], [place] [address] Jul, [facility] [address] [id number] [address] [place] [address], [place] [address] 05 Jul, 2014 [facility] [address] [id number] [address] [place] [address], [place] [address] 05 Jul, 2014 [facility] [address] [id number] [address] [place] [address], [place] [address] Jul, [facility] [address] [id number] [address] [place] [address], [place] [address] Jul, [facility] [address] [id number] [address] [place] [address], [place] [address] Jul, [facility] [address] [id number] [address] [place] [address], [place] [address] Jul, [facility] [address] [id number] [address] [place] [address], [place] [address] Jun, [facility] [address] [id number] [address] [place] [address], [place] [address] Jun, [facility] [address] [id number] [address] [place] [address], [place] [address] May, [facility] [address] [id number] [address] [place] [address], [place] [address] May, [facility] [address] [id number] [address] [place] [address], [place] [address] May, [facility] [address] [id number] [address] [place] [address], [place] [address] May, [facility] [address] [id number] [address] [place] [address], [place] [address] May, [facility] [address] [id number] [address] [place] [address], [place] [address] May, [facility] [address] [id number] [address] [place] [address], [place] [address] May, [facility] [address] [id number] [address] [place] [address], [place] [address] May, [facility] [address] [id number] [address] [place] [address], [place] [address] May, [facility] [address] [id number] [address] [place] [address], [place] [address] May, [facility] [address] [id number] [address] [place] [address], [place] [address] May, [facility] [address] [id number] [address] [place] [address], [place] [address] May, [facility] [address] [id number] [address] [place] [address], [place] [address] Apr, [facility] [address] [id number] [address] [place] [address], [place] [address] Apr, [facility] [address] [id number] [address] [place] [address], [place] [address] Apr, [facility] [address] [id number] [address] [place] [address], [place] [address] Apr, [facility] [address] [id number] [address] [place] [address], [place] [address] Apr, [facility] [address] [id number] [address] [place] [address], [place] [address] Apr, [facility] [address] [id number] [address] [place] [address], [place] [address] Feb, [facility] [address] [id number] [address] [place] [address], [place] [address] Feb, [facility] [address] [id number] [address] [place] [address], [place] [address] Feb, [facility] [address] [id number] [address] [place] [address], [place] [address] Feb, [facility] [address] [id number] [address] [place] [address], [place] [address] Feb, [facility] [address] [id number] [address] [place] [address], [place] [address] Feb, [facility] [address] [id number] [address] [place] [address], [place] [address] Jan, [facility] [address] [id number] [address] [place] [address], [place] [address] Jan, [facility] [address] [id number] [address] [place] [address], [place] [address] Jan, [facility] [address] [id number] [address] [place] [address], [place] [address] Jan, [facility] [address] [id number] [address] [place] [address], [place] [address] Jan, [facility] [address] [id number] [address] [place] [address], [place] [address] Jan, [facility] [address] [id number] [address] [place] [address], [place] [address] Jan, [facility] [address] [id number] [address] [place] [address], [place] [address] Jan, [facility] [address] [id number] [address] [place] [address], [place] [address] December, [facility] [address] [id number] [address] [place] [address], [place] [address] December, [facility] [address] [id number] [address] [place] [address], [place] [address] December, [facility] [address] [id number] [address] [place] [address], [place] [address] December, [facility] [address] [id number] [address] [place] [address], [place] [address] Nov, [facility] [address] [id number] [address] [place] [address], [place] [address] Nov, [facility] [address] [id number] [address] [place] [address], [place] [address] Nov, [facility] [address] [id number] [address] [place] [address], [place] [address] Nov, [facility] [address] [id number] [address] [place] [address], [place] [address] Nov, [facility] [address] [id number] [address] [place] [address], [place] [address] Nov, [facility] [address] [id number] [address] [place] [address], [place] [address] Nov, [facility] [address] [id number] [address] [place] [address], [place] [address] Nov, [facility] [address] [id number] [address] [place] [address], [place] [address] Oct, [facility] [address] [id number] [address] [place] [address], [place] [address] Oct, [facility] [address] [id number] [address] [place] [address], [place] [address] Sep, [facility] [address] [id number] [address] [place] [address], [place] [address] Sep, [facility] [address] [id number] [address] [place] [address], [place] [id number] Sep, [facility] [address] [id number] [address] [place] [address], [place] [address] Sep, [facility] [address] [id number] [address] [place] [address], [place] [address] Sep, [facility] [address] [id number] [address] [place] [address], [place] [address] Sep, [facility] [address] [id number] [address] [place] [address], [place] [address] Aug, [facility] [address] [id number] [address] [place] [address], [place] [address] Aug, [facility] [address] [id number] [address] [place] [address], [place] [address] Aug, [facility] [address] [id number] [address] [place] [address], [place] [address] Aug, [facility] [address] [id number] [address] [place] [address], [place] [address] Jul, [facility] [address] [id number] [address] [place] [address], [place] [address] Jul, [facility] [address] [id number] [address] [place] [address], [place] [address] Jul, [facility] [address] [id number] [address] [place] [address], [place] [address] Jul, [facility] [address] [id number] [address] [place] [address] Jun, [facility] [address] [id number] [address] [place] [address], [place] [address] Jun, [facility] [address] [id number] [address] [place] [address], [place] [address] May, [facility] [address] [id number] [address] [place] [address], [place] [address] May, [facility] [address] [id number] [address] [place] [address], [place] [address] May, [facility] [address] [id number] [address] [place] [address], [place] [address] May, [facility] [address] [id number] [address] [place] [address], [place] [address] May, [facility] [address] [id number] [address] [place] [address], [place] [address] 17 Apr, 2013 [facility] [address] [id number] [address] [place] [address] 10 Apr, 2013 [facility] [address] [id number] [address] [place] [address], [place] [address] 29 Mar, 2013 [facility] [address] [id number] [address] [place] [address], [place] [address] Mar, [facility] [address] [id number] [address] [place] [address], [place] [address] 15 Mar, 2013 [facility] [address] [id number] [address] [place] [address], [place] [address] Mar, [facility] [address] [id number] [address] [place] [address], [place] [address] Feb, [facility] [address] [id number] [address] [place] [address], [place] [address] Feb, [facility] [address] [id number] [address] [place] [address], [place] [address] Feb, [facility] [address] [id number] [address] [place] [address], [place] [address] Feb, [facility] [address] [id number] [address] [place] [address], [place] [address] Feb, [facility] [address] [id number] [address] [place] [address], [place] [address] Jan, [facility] [address] [id number] [address] [place] [address], [place] [address] Jan, [facility] [address] [id number] [address] [place] [address], [place] [address] Jan, [facility] [address] [id number] [address] [place] [address], [place] [address] Jan, [facility] [address] [id number] [address] [place] [address], [place] [address] Jan, [facility] [address] [id number] [address] [place] [address], [place] [address] December, [facility] [address] [id number] [address] [place] [address], [place] [address] December, [facility] [address] [id number] [address] [place] [address], [place] [address] Nov, [facility] [address] [id number] [address] [place] [address], [place] [address] Nov, [facility] [address] [id number] [address] [place] [address], [place] [address] Oct, [facility] [address] [id number] [address] [place] [address], [place] [address] 13 Oct, 2012 [facility] [address] [id number] [address] [place] [address], [place] [address] 05 Oct, 2012 [facility] [address] [id number] [address] [place] [address], [place] [address] 14 Sep, 2012 [facility] [address] [id number] [address] [place] [address], [place] [address] 24 Aug, 2012 [facility] [address] [id number] [address] [place] [address], [place] [address] 16 Aug, 2012 [facility] [address] [id number] [address] [place] [address], [place] [address] 15 Aug, 2012 [facility] [address] [id number] [address] [place] [address], [place] [address] Aug, [facility] [address] [id number] [address] [place] [address], [place] [address] Jul, [facility] [address] [id number] [address] [place] [address], [place] [address] Jul, [facility] [address] [id number] [address] [place] [address], [place] [address] Jul, [facility] [address] [id number] [address] [place] [address], [place] [address] Jul, [facility] [address] [id number] [address] [place] [address], [place] [address] Jul, [facility] [address] [id number] [address] [place] [address], [place] [address] Jul, [facility] [address] [id number] [address] [place] [address], [place] [address] Jul, [facility] [address] [id number] [address] [place] [address], [place] [address] Jul, [facility] [address] [id number] [address] [place] [address] Jun, [facility] [address] [id number] [address] [place] [address], [place] [address] Jun, [facility] [address] [id number] [address] [place] [address], [place] [address] Jun, [facility] [address] [id number] [address] [place] [address], [place] [address] Jun, [facility] [address] [id number] [address] [place] [address], [place] [address] Jun, [facility] [address] [id number] [address] [place] [address], [place] [address] Jun, [facility] [address] [id number] [address] [place] [address], [place] [address] May, [facility] [address] [id number] [address] [place] [address], [place] [address] May, [facility] [address] [id number] [address] [place] [address], [place] [address] May, [facility] [address] [id number] [address] [place] [address], [place] [address] May, [facility] [address] [id number] [address] [place] [address], [place] [address] Apr, [facility] [address] [id number] [address] [place] [address], [place] [address] Apr, [facility] [address] [id number] [address] [place] [address] Mar, [facility] [address] [id number] [address] [place] [address], [place] [address] Jan, [facility] [address] [id number] [address] [place] [address], [place] [address] Jan, [facility] [address] [id number] [address] [place] [address], [place] [address] Jan, [facility] [address] [id number] [address] [place] [address], [place] [address] 15 Jan, 2012 [facility] [address] [id number] [address] [place] [address], [place] [address] 14 Jan, 2012 [facility] [address] [id number] [address] [place] [address], [place] [address] 14 Jan, 2012 [facility] [address] [id number] [address] [place] [address], [place] [address] 07 Jan, 2012 [facility] [address] [id number] [address] [place] [address], [place] [address] December, [facility] [address] [id number] [address] [place] [address], [place] [address] December, [facility] [address] [id number] [address] [place] [address], [place] [address] December, [facility] [address] [id number] [address] [place] [address], [place] [address] December, [facility] [address] [id number] [address] [place] [address], [place] [address] Nov, [facility] [address] [id number] [address] [place] [address], [place] [address] 05 Nov, 2011 [facility] [address] [id number] [address] [place] [address], [place] [address] 29 Oct, 2011 [facility] [address] [id number] [address] [place] [address], [place] [address] Oct, [facility] [address] [id number] [address] [place] [address], [place] [address] 15 Oct, 2011 [facility] [address] [id number] [address] [place] [address], [place] [address] Sep, [facility] [address] [id number] [address] [place] [address], [place] [address] Sep, [facility] [address] [id number] [address] [place] [address], [place] [address] Sep, [facility] [address] [id number] [address] [place] [address], [place] [address] Aug, [facility] [address] [id number] [address] [place] [address], [place] [address] Aug, [facility] [address] [id number] [address] [place] [address], [place] [address] Aug, [facility] [address] [id number] [address] [place] [address], [place] [address] Aug, [facility] [address] [id number] [address] [place] [address], [place] [address] Aug, [facility] [address] [id number] [address] [place] [address], [place] [address] Aug, [facility] [address] [id number] [address] [place] [address], [place] [address] Aug, [facility] [address] [id number] [address] [place] [address], [place] [address] Jul, [facility] [address] [id number] [address] [place] [address], [place] [address] Jul, [facility] [address] [id number] [address] [place] [address], [place] [address] Jun, [facility] [address] [id number] [address] [place] [address], [place] [address] Jun, [facility] [address] [id number] [address] [place] [address], [place] [address] 17 Jun, 2011 [facility] [address] [id number] [address] [place] [address], [place] [address] 15 Jun, 2011 [facility] [address] [id number] [address] [place] [address], [place] [address] 14 Jun, 2011 [facility] [address] [id number] [address] [place] [address], [place] [address] 14 Jun, 2011 [facility] [address] [id number] [address] [place] [address], [place] [address] 07 Jun, 2011 [facility] [address] [id number] [address] [place] [address], [place] [address] Jun, [facility] [address] [id number] [address] [place] [address], [place] [address] Jun, [facility] [address] [id number] [address] [place] [address], [place] [address] Jun, [facility] [address] [id number] [address] [place] [address], [place] [address] May, [facility] [address] [id number] [address] [place] [address], [place] [address] May, [facility] [address] [id number] [address] [place] [address], [place] [address] May, [facility] [address] [id number] [address] [place] [address], [place] [address] May, [facility] [address] [id number] [address] [place] [address], [place] [address] May, [facility] [address] [id number] [address] [place] [address], [place] [address] May, [facility] [address] [id number] [address] [place] [address], [place] [address] Feb, [facility] [address] [id number] [address] [place] [address], [place] [address] December, [facility] [address] [id number] [address] [place] [address], [place] [address] Jul, [facility] [address] [id number] [address] [place] [address], [place] [address] Jul, [facility] [address] [id number] [address] [place] [address], [place] [address] Jul, [facility] [address] [id number] [address] [place] [address], [place] [address] Jul, [facility] [facility] [address] [id number] [address] [place] [id number] Jun, [facility] [address] [id number] [address] [place] [id number] Jul, [facility] [address] [id number] [address] [place] [phone] Jul, [facility] [address] [id number] [address] [place] [id number] Jul, [facility] [address] [id number] [address] [place] [phone] Jul, [facility] [address] [id number] [address] [place] [phone] Jul, [facility] [address] [id number] [address] [place] [id number] Jul, [facility] [address] [id number] [address] [place] [phone] Jan, [facility] [address] [id number] [address] [place] [id number] Sep, [facility] [address] [id number] [address] [place] [phone] Sep, IMMUNIZATIONS No Known Immunizations SOCIAL HISTORY [...]
--- OUTSIDE RECORDS SUMMARY | 2020-01-27 10:19 | XMS REPORT ---
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 Role Phone LETTY WILKINS Unavailable PROBLEMS Type Condition ICD9-CM Code ROQ09-PD Code Onset Dates Condition S tatus SNOMED Code Problem Hypertension I10 Active 3366781 3 Problem Generalized anxiety disorder F41.1 A ctive 211406260 Problem History of colon polyps Z86.010 Active 232991805 Problem History of diverticulitis Z87.19 Acti ve [id number] Problem Family history of diabetes mellitus Z83.3 Active 612681919 Problem Excessive and frequent menstruation with irregular cycle N92.1 Active 565147660 Problem Hot flashes N95.1 Active 70723577 8 Problem Gastroesophageal reflux disease with esophagitis K 21.0 Active 592081192 Problem History of ovarian cyst Z87.42 Active 91162331 Problem Diverticulitis K57.92 Active 03844 6006 Problem Dense breast tissue R92.2 Active 810662369 Problem Perimenopausal N95.1 Active 37507 5439927786 Problem Mitral valve prolapse I34.1 Active 953055139 Problem Abnormal uterine bleeding (AUB) N93.9 Active [id number] Problem Tachycardia R00.0 Active 4050733 ALLERGIES No Information ENCOUNTERS Encounter Location Date Diagnosis [facility] [address] [facility] [id number] [address] [place] [phone] Mar, [facility] [address] [facility] [id number] [address] [place] [address] Feb, [facility] [address] [facility] [id number] [address] [place] [address] Feb, Generalized anxiety disorder F41.1 and Bereavement Z63.4 [place] [address] [facility] [id number] [address] [place] [phone] 27 Jan, 2019 [facility] [address] [facility] [id number] [address] [place] [address] 20 Jan, 2019 Breast cancer screening by trenton crenshaw Z12.31 [facility] [address] [facility] [id number] [address] [place] [address] 13 Jan, 2019 Generalized anxiety disorder F41.1 and Bereavement Z63.4 [facility] [address] [facility] [id number] [address] [place] [address] Jan, [facility] [address] [facility] [id number] [address] [place] [address] December, Generalized anxiety disorder F41.1 and Bereavement Z63.4 [facility] [address] [facility] [id number] [address] [place] [address] December, Diverticulitis K57.92 ; Dysu nick R30.0 ; Other constipation K59.09 and Lower abdominal pain R10.30 [facility] [address] [facility] [id number] [address] [place] [address] Nov, Diverticulitis K57.92 [facility] [address] [facility] [id number] [address] [place] [address] Nov, Generalized anxiety disorder F41.1 and Bereavement Z63.4 [facility] [address] [facility] [id number] [address] [place] [address] Nov, Generalized anxiety disorder F41.1 and Bereavement Z63.4 [facility] [address] [facility] [id number] [address] [place] [address] Nov, Diverticulitis K57.92 [facility] [address] [facility] [id number] [address] [place] [address] Oct, Diverticulitis K57.92 [facility] [address] [facility] [id number] [address] [place] [address] Oct, Diverticulitis K57.92 [facility] [address] [facility] [id number] [address] [place] [address] Oct, Generalized anxiety disorder F41.1 [facility] [address] [facility] [id number] [address] [place] [address] Oct, Right lower quadrant abdomin al pain R10.31 and Diverticulitis K57.92 [facility] [address] [facility] [id number] [address] [place] [address] Sep, Generalized anxiety disorder F41.1 and Bereavement Z63.4 [facility] [address] [facility] [id number] [address] [place] [address] Aug, [facility] [address] [facility] [id number] [address] [place] [address] Aug, Generalized anxiety disorder F41.1 and Bereavement Z63.4 [facility] [address] [facility] [id number] [address] [address] Aug, Caries K02.9 [facility] [address] [facility] [id number] [address] [place] [address] Jul, Generalized anxiety disorder F41.1 and Bereavement Z63.4 [facility] [address] [facility] [id number] [address] [place] [address] Jul, Other acute gastritis withou t hemorrhage K29.00 ; Generalized anxiety disorder F41.1 ; Tachycardia R00.0 and Essential hypertension I10 [facility] [address] [facility] [id number] [address] [place] [address] Jul, Generalized anxiety disorder F41.1 and Bereavement Z63.4 [facility] [address] [facility] [id number] [address] [place] [address] Jun, Generalized anxiety disorder F41.1 and Bereavement Z63.4 [facility] [address] [facility] [id number] [address] [place] [address] Jun, Generalized anxiety disorder F41.1 and Bereavement Z63.4 [facility] [address] [id number] [address] [address] Jun, Dental examination Z01.20 [facility] [address] [facility] [id number] [address] [place] [address] May, Generalized anxiety disorder F41.1 and Bereavement Z63.4 [facility] [address] [facility] [id number] [address] [place] [address] May, Encounter for immunization Z 23 [facility] [address] [facility] [id number] [address] [place] [address] May, Generalized anxiety disorder F41.1 and Bereavement Z63.4 [facility] [address] [facility] [id number] [address] [place] [address] May, [facility] [address] [facility] [id number] [address] [place] [address] 24 Apr, 2018 Generalized anxiety disorder F41.1 and Bereavement Z63.4 [facility] [address] [facility] [id number] [address] [place] [address] 17 Apr, 2018 [facility] [address] [facility] [id number] [address] [place] [address] 13 Apr, 2018 Diverticulitis K57.92 [facility] [address] [facility] [id number] [address] [place] [phone] 10 Apr, 2018 Generalized anxiety disorder F41.1 and Bereavement Z63.4 [facility] [address] [facility] [id number] [address] [place] [phone] Mar, [facility] [address] [facility] [id number] [address] [place] [address] Mar, Diverticulitis K57.92 [facility] [address] [facility] [id number] [address] [place] [address] Mar, Generalized anxiety disorder F41.1 and Bereavement Z63.4 [facility] [address] [id number] [address] [place] [address] Mar, Hypertension I10 [facility] [address] [id number] [address] [place] [address] Mar, Generalized anxiety disorder F41.1 and Bereavement Z63.4 [facility] [address] [id number] [address] [place] [address] Feb, Generalized anxiety disorder F41.1 and Bereavement Z63.4 [facility] [address] [id number] [address] [place] [address] Feb, [facility] [address] [id number] [address] [place] [address] Feb, Generalized anxiety disorder F41.1 and Bereavement Z63.4 [facility] [address] [id number] [address] [place] [address] Feb, Generalized anxiety disorder F41.1 and Bereavement Z63.4 [facility] [address] [id number] [address] [place] [address] Jan, Hypertension I10 and Acute n on-recurrent maxillary sinusitis J01.00 [facility] [address] [id number] [address] [place] [address] December, [facility] [address] [id number] [address] [place] [address] December, Hypertension I10 [facility] [address] [id number] [address] [place] [address] December, Generalized anxiety disorder F41.1 [facility] [address] [id number] [address] [place] [address] 16 Oct, 2017 Encounter for dental examina tion Z01.20 [facility] [address] [id number] [address] [address] 06 Oct, 2017 Encounter for dental examina tion Z01.20 [facility] [address] [id number] [address] [address] 02 Oct, 2017 Dental examination Z01.20 [facility] [address] [id number] [address] [place] [address] Oct, Generalized anxiety disorder F41.1 [facility] [address] [id number] [address] [address] 30 Aug, 2017 Dental examination Z01.20 [facility] [address] [id number] [address] [place] [address] Aug, Generalized anxiety disorder F41.1 [facility] [address] [id number] [address] [place] [phone] Aug, [facility] [address] [id number] [address] [place] [address] Aug, Encounter for dental examina tion Z01.20 [facility] [address] [id number] [address] [place] [address] Aug, Subacute maxillary sinusitis J01.00 [facility] [address] [id number] [address] [place] [address] Jul, Dental examination Z01.20 [facility] [address] [id number] [address] [place] [address] Jul, Generalized anxiety disorder F41.1 [facility] [address] [id number] [address] [place] [address] 11 Jul, 2017 Diverticulitis K57.92 [facility] [address] [id number] [address] [place] [address] 28 Jun, 2017 Encounter for immunization Z 23 [facility] [address] [id number] [address] [address] 22 Jun, 2017 Dental examination Z01.20 [facility] [address] [id number] [address] [place] [address] Jun, Generalized anxiety disorder F41.1 [facility] [address] [id number] [address] [place] [address] Jun, Dental examination Z01.20 [facility] [address] [id number] [address] [place] [address] May, [facility] [address] [id number] [address] [place] [address] [id number] May, Dental examination Z01.20 [facility] [address] [id number] [address] [place] [id number] May, Dental examination Z01.20 [facility] [address] [id number] [address] [place] [address] May, Dental examination Z01.20 [facility] [address] [id number] [address] [place] [address] May, [facility] [address] [id number] [address] [place] [address] May, Generalized anxiety disorder F41.1 [facility] [address] [id number] [address] [place] [address] May, Localized edema R60.0 ; Yeas t vaginitis B37.3 and Gastroesophageal reflux disease with esophagitis K21.0 [facility] [address] [id number] [address] [place] [address] [id number] Apr, Dental examination Z01.20 [facility] [address] [id number] [address] [address] Apr, Dental examination Z01.20 [facility] [address] [id number] [address] [place] [address] Apr, Dental examination Z01.20 [facility] [address] [id number] [address] [place] [address] Mar, Dyspepsia R10.13 [facility] [address] [id number] [address] [place] [address] Mar, Generalized anxiety disorder F41.1 [facility] [address] [id number] [address] [place] [address] Mar, Encounter for dental examina tion Z01.20 [facility] [address] [id number] [address] [place] [address] [id number] Mar, [facility] [address] [id number] [address] [place] [address] [id number] Mar, Dental examination Z01.20 [facility] [address] [id number] [address] [place] [address] Feb, Hypertension I10 and Tachyca rdia R00.0 [facility] [address] [id number] [address] [place] [address] Feb, [facility] [address] [id number] [address] [place] [address] Feb, Generalized anxiety disorder F41.1 [facility] [address] [id number] [address] [place] [address] [id number] Feb, Dental examination Z01.20 [facility] [address] [id number] [address] [place] [address] Jan, Generalized anxiety disorder F41.1 [facility] [address] [id number] [address] [place] [address] December, Generalized anxiety disorder F41.1 [facility] [address] [id number] [address] [place] [address] [id number] December, Encounter for dental examina tion Z01.20 [facility] [address] [id number] [address] [place] [address] Nov, [facility] [address] [id number] [address] [place] [address] Nov, [facility] [address] [id number] [address] [place] [address] Nov, Generalized anxiety disorder F41.1 [facility] [address] [facility] [id number] [address] [place] [address] 30 Oct, 2016 [facility] [address] [facility] [id number] [address] [place] [address] [id number] Oct, Dental examination Z01.20 [facility] [address] [facility] [id number] [address] [place] [address] Oct, Vaginal dryness N89.8 [facility] [address] [facility] [id number] [address] [place] [address] Oct, Pseudoseizures F44.5 [facility] [address] [facility] [id number] [address] [place] [address] Oct, Generalized anxiety disorder F41.1 [facility] [address] [place] [id number] [address] [place] [address] 28 Sep, 2016 Abnormal uterine bleeding (A UB) N93.9 ; Vaginal dryness N89.8 and Screening breast examination Z12.39 [facility] [address] [facility] [id number] [address] [place] [address] Sep, Dental examination Z01.20 [facility] [address] [place] [id number] [address] [place] [address] Sep, Generalized anxiety disorder F41.1 [facility] [address] [place] [id number] [address] [place] [address] 06 Sep, 2016 Unspecified ovarian cyst, ri ght side N83.201 ; Unspecified ovarian cyst, left side N83.202 ; Yeast infection of the vagina B37.3 ; Mitral valve prolapse I34.1 and Hypertension I10 [facility] [address] [place] [id number] [address] [place] [address] Aug, Generalized anxiety disorder F41.1 [facility] [address] [facility] [id number] [address] [place] [address] Jul, [facility] [address] [facility] [id number] [address] [place] [address] Jul, Generalized anxiety disorder F41.1 [facility] [address] [place] [id number] [place] [address] 15 Jun, 2016 Generalized anxiety disorder F41.1 [facility] [address] [facility] [id number] [address] [place] [phone] 28 May, 2016 Encounter for immunization Z 23 [facility] [address] [facility] [id number] [place] [address] 17 May, 2016 Generalized anxiety disorder F41.1 and Depressive disorder, not elsewhere classified F32.9 [facility] [address] [facility] [id number] [place] [address] 28 Apr, 2016 Hypertension I10 [facility] [address] [place] [id number] [place] [address] 22 Apr, 2016 Cervicalgia M54.2 [facility] [address] [place] [id number] [place] [phone] 12 Apr, 2016 Cervicalgia M54.2 [facility] [address] [place] [id number] [place] [phone] 09 Mar, 2016 Generalized anxiety disorder F41.1 and Depressive disorder, not elsewhere classified F32.9 [facility] [id number] [place] [address] [id number] 14 Feb, 2016 Visit for dental examination Z01.20 [facility] [address] [place] [id number] [address] [place] [phone] 11 Feb, 2016 Pseudoseizures F44.5 ; Migra ine without status migrainosus, not intractable, unspecified migraine type G43.909 and Essential hypertension I10 [facility] [address] [place] [id number] [address] [place] [address] [id number] Feb, Dental examination Z01.20 [facility] [address] [place] [id number] [address] [place] [phone] 05 Feb, 2016 Generalized anxiety disorder F41.1 and Depressive disorder, not elsewhere classified F32.9 [facility] [address] [facility] [id number] [address] [place] [address] Jan, Tachycardia R00.0 [facility] [address] [facility] [id number] [address] [place] [address] December, Eustachian tube dysfunction, bilateral H69.83 [facility] [address] [facility] [id number] [address] [place] [address] December, Generalized anxiety disorder F41.1 and Depressive disorder, not elsewhere classified F32.9 [facility] [address] [facility] [id number] [address] [place] [address] Nov, [facility] [address] [facility] [id number] [address] [place] [address] Nov, [place] [address] [facility] [id number] [address] [place] [address] Nov, Hypertension I10 ; Onychomyc osis B35.1 [...] and Complex cyst of left ovary N83.29 [facility] [address] [facility] [id number] [address] [place] [address] 14 Nov, 2015 Sinusitis J32.9 [facility] [address] [facility] [id number] [address] [place] [address] Oct, Complex cyst of left ovary N 83.29 [facility] [address] [facility] [id number] [address] [place] [address] Oct, Onychomycosis B35.1 [facility] [address] [id number] [address] [place] [address] [id number] 17 Oct, 2016 Dental examination Z01.20 [place] [address] [facility] [id number] [address] [place] [phone] 09 Oct, 2016 Well woman exam Z01.419 [...] R92.2 and History of colon polyps Z86.010 [place] [address] [facility] [id number] [address] [place] [phone] 03 Oct, 2015 Generalized anxiety disorder F41.1 and Depressive disorder, not elsewhere classified F32.9 [place] [address] [place] [id number] [address] [place] [address] Sep, Hypertension I10 and Onychom ycosis B35.1 [place] [address] [facility] [id number] [address] [place] [phone] 16 Sep, 2015 Skin tags, multiple acquired L91.8 [place] [address] [facility] [id number] [address] [place] [address] Aug, [place] [address] [facility] [id number] [address] [place] [phone] Aug, [place] [address] [facility] [id number] [address] [place] [address] Aug, [place] [address] [facility] [id number] [address] [place] [address] Aug, Generalized anxiety disorder F41.1 and Depressive disorder, not elsewhere classified F32.9 [place] [address] [facility] [id number] [address] [place] [address] Jul, Skin lesion L98.9 [facility] [address] [id number] [address] [place] [phone] 12 Jun, 2015 Generalized anxiety disorder F41.1 and Depressive disorder, not elsewhere classified F32.9 [facility] [address] [id number] [address] [place] [address] Jun, [facility] [address] [id number] [address] [place] [address] Jun, Generalized anxiety disorder F41.1 [facility] [address] [id number] [address] [place] [phone] May, Encounter for immunization Z 23 and Right shoulder pain M25.511 [facility] [address] [id number] [address] [place] [address] 28 Apr, 2015 [facility] [address] [id number] [address] [place] [phone] 14 Apr, 2015 Generalized anxiety disorder 300.02 and Depressive disorder, not elsewhere classified 311 [facility] [address] [id number] [address] [place] [id number] Mar, Dental examination V72.2 [facility] [address] [id number] [address] [place] [phone] Mar, Generalized anxiety disorder 300.02 and Depressive disorder, not elsewhere classified 311 [facility] [address] [id number] [address] [place] [phone] Mar, Depression, major, recurrent , 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.35 and 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 [facility] [address] [id number] [address] [place] [phone] Feb, Generalized anxiety disorder 300.02 and Depressive disorder, not elsewhere classified 311 [facility] [address] [id number] [address] [place] [id number] Feb, Dental examination V72.2 [facility] [address] [id number] [address] [place] [phone] Jan, Generalized anxiety disorder 300.02 and Depressive disorder, not elsewhere classified 311 [facility] [address] [id number] [address] [place] [address] Jan, [facility] [address] [facility] [id number] [address] [place] [address] December, Generalized anxiety disorder 300.02 and Depressive disorder, not elsewhere classified 311 [facility] [address] [id number] [address] [place] [address] December, Major depressive disorder, r ecurrent, unspecified 296.30 and Panic disorder with agoraphobia 300.21 [facility] [address] [id number] [address] [place] [address] Nov, [facility] [address] [facility] [id number] [address] [place] [address] Nov, [facility] [address] [facility] [id number] [address] [place] [address] Oct, [facility] [address] [facility] [id number] [address] [place] [address] Oct, [facility] [address] [facility] [id number] [address] [place] [address] Oct, [facility] [address] [facility] [id number] [address] [place] [address] Oct, [facility] [address] [facility] [id number] [address] [place] [address] Sep, [facility] [address] [facility] [id number] [address] [place] [address] Sep, [facility] [address] [facility] [id number] [address] [place] [address] Sep, [facility] [address] [facility] [id number] [address] [place] [address] Sep, [facility] [address] [facility] [id number] [address] [place] [address] Sep, [facility] [address] [id number] [address] [place] [address], [place] [address] Sep, 2014 [facility] [address] [id number] [address] [place] [address], [place] [address] Sep, 2014 [facility] [address] [id number] [address] [place] [address], [place] [address] Sep, 2014 [facility] [address] [id number] [address] [place] [address], [place] [address] Sep, 2014 [facility] [address] [id number] [address] [place] [address], [place] [address] Sep, [facility] [address] [id number] [address] [place] [address], [place] [address] Aug, [facility] [address] [id number] [address] [place] [address], [place] [address] Aug, [facility] [address] [id number] [address] [place] [address], [place] [address] Jul, [facility] [address] [id number] [address] [place] [address], [place] [address] Jul, [facility] [address] [id number] [address] [place] [address], [place] [address] 18 Jul, 2014 [facility] [address] [id number] [address] [place] [address], [place] [address] 18 Jul, 2014 [facility] [address] [id number] [address] [place] [address], [place] [address] Jul, [facility] [address] [id number] [address] [place] [address], [place] [address] Jul, [facility] [address] [id number] [address] [place] [address], [place] [address] 05 Jul, 2014 [facility] [address] [id number] [address] [place] [address], [place] [address] 05 Jul, 2014 [facility] [address] [id number] [address] [place] [address], [place] [address] Jul, [facility] [address] [id number] [address] [place] [address], [place] [address] Jul, [facility] [address] [id number] [address] [place] [address], [place] [address] Jul, [facility] [address] [id number] [address] [place] [address], [place] [address] Jul, [facility] [address] [id number] [address] [place] [address], [place] [address] Jun, [facility] [address] [id number] [address] [place] [address], [place] [address] Jun, [facility] [address] [id number] [address] [place] [address], [place] [address] May, [facility] [address] [id number] [address] [place] [address], [place] [address] May, [facility] [address] [id number] [address] [place] [address], [place] [address] May, [facility] [address] [id number] [address] [place] [address], [place] [address] May, [facility] [address] [id number] [address] [place] [address], [place] [address] May, [facility] [address] [id number] [address] [place] [address], [place] [address] May, [facility] [address] [id number] [address] [place] [address], [place] [address] May, [facility] [address] [id number] [address] [place] [address], [place] [address] May, [facility] [address] [id number] [address] [place] [address], [place] [address] May, [facility] [address] [id number] [address] [place] [address], [place] [address] May, [facility] [address] [id number] [address] [place] [address], [place] [address] May, [facility] [address] [id number] [address] [place] [address], [place] [address] May, [facility] [address] [id number] [address] [place] [address], [place] [address] Apr, [facility] [address] [id number] [address] [place] [address], [place] [address] Apr, [facility] [address] [id number] [address] [place] [address], [place] [address] Apr, [facility] [address] [id number] [address] [place] [address], [place] [address] Apr, [facility] [address] [id number] [address] [place] [address], [place] [address] Apr, [facility] [address] [id number] [address] [place] [address], [place] [address] Apr, [facility] [address] [id number] [address] [place] [address], [place] [address] Feb, [facility] [address] [id number] [address] [place] [address], [place] [address] Feb, [facility] [address] [id number] [address] [place] [address], [place] [address] Feb, [facility] [address] [id number] [address] [place] [address], [place] [address] Feb, [facility] [address] [id number] [address] [place] [address], [place] [address] Feb, [facility] [address] [id number] [address] [place] [address], [place] [address] Feb, [facility] [address] [id number] [address] [place] [address], [place] [address] Jan, [facility] [address] [id number] [address] [place] [address], [place] [address] Jan, [facility] [address] [id number] [address] [place] [address], [place] [address] Jan, [facility] [address] [id number] [address] [place] [address], [place] [address] Jan, [facility] [address] [id number] [address] [place] [address], [place] [address] Jan, [facility] [address] [id number] [address] [place] [address], [place] [address] Jan, [facility] [address] [id number] [address] [place] [address], [place] [address] Jan, [facility] [address] [id number] [address] [place] [address], [place] [address] Jan, [facility] [address] [id number] [address] [place] [address], [place] [address] December, [facility] [address] [id number] [address] [place] [address], [place] [address] December, [facility] [address] [id number] [address] [place] [address], [place] [address] December, [facility] [address] [id number] [address] [place] [address], [place] [address] December, [facility] [address] [id number] [address] [place] [address], [place] [address] Nov, [facility] [address] [id number] [address] [place] [address], [place] [address] Nov, [facility] [address] [id number] [address] [place] [address], [place] [address] Nov, [facility] [address] [id number] [address] [place] [address], [place] [address] Nov, [facility] [address] [id number] [address] [place] [address], [place] [address] Nov, [facility] [address] [id number] [address] [place] [address], [place] [address] Nov, [facility] [address] [id number] [address] [place] [address], [place] [address] Nov, [facility] [address] [id number] [address] [place] [address], [place] [address] Nov, [facility] [address] [id number] [address] [place] [address], [place] [address] Oct, [facility] [address] [id number] [address] [place] [address], [place] [address] Oct, [facility] [address] [id number] [address] [place] [address], [place] [address] Sep, [facility] [address] [id number] [address] [place] [address], [place] [address] Sep, [facility] [address] [id number] [address] [place] [address], [place] [id number] Sep, [facility] [address] [id number] [address] [place] [address], [place] [address] Sep, [facility] [address] [id number] [address] [place] [address], [place] [address] Sep, [facility] [address] [id number] [address] [place] [address], [place] [address] Sep, [facility] [address] [id number] [address] [place] [address], [place] [address] Aug, [facility] [address] [id number] [address] [place] [address], [place] [address] Aug, [facility] [address] [id number] [address] [place] [address], [place] [address] Aug, [facility] [address] [id number] [address] [place] [address], [place] [address] Aug, [facility] [address] [id number] [address] [place] [address], [place] [address] Jul, [facility] [address] [id number] [address] [place] [address], [place] [address] Jul, [facility] [address] [id number] [address] [place] [address], [place] [address] Jul, [facility] [address] [id number] [address] [place] [address], [place] [address] Jul, [facility] [address] [id number] [address] [place] [address] Jun, [facility] [address] [id number] [address] [place] [address], [place] [address] Jun, [facility] [address] [id number] [address] [place] [address], [place] [address] May, [facility] [address] [id number] [address] [place] [address], [place] [address] May, [facility] [address] [id number] [address] [place] [address], [place] [address] May, [facility] [address] [id number] [address] [place] [address], [place] [address] May, [facility] [address] [id number] [address] [place] [address], [place] [address] May, [facility] [address] [id number] [address] [place] [address], [place] [address] 17 Apr, 2013 [facility] [address] [id number] [address] [place] [address] 10 Apr, 2013 [facility] [address] [id number] [address] [place] [address], [place] [address] 29 Mar, 2013 [facility] [address] [id number] [address] [place] [address], [place] [address] Mar, [facility] [address] [id number] [address] [place] [address], [place] [address] 15 Mar, 2013 [facility] [address] [id number] [address] [place] [address], [place] [address] Mar, [facility] [address] [id number] [address] [place] [address], [place] [address] Feb, [facility] [address] [id number] [address] [place] [address], [place] [address] Feb, [facility] [address] [id number] [address] [place] [address], [place] [address] Feb, [facility] [address] [id number] [address] [place] [address], [place] [address] Feb, [facility] [address] [id number] [address] [place] [address], [place] [address] Feb, [facility] [address] [id number] [address] [place] [address], [place] [address] Jan, [facility] [address] [id number] [address] [place] [address], [place] [address] Jan, [facility] [address] [id number] [address] [place] [address], [place] [address] Jan, [facility] [address] [id number] [address] [place] [address], [place] [address] Jan, [facility] [address] [id number] [address] [place] [address], [place] [address] Jan, [facility] [address] [id number] [address] [place] [address], [place] [address] December, [facility] [address] [id number] [address] [place] [address], [place] [address] December, [facility] [address] [id number] [address] [place] [address], [place] [address] Nov, [facility] [address] [id number] [address] [place] [address], [place] [address] Nov, [facility] [address] [id number] [address] [place] [address], [place] [address] Oct, [facility] [address] [id number] [address] [place] [address], [place] [address] 13 Oct, 2012 [facility] [address] [id number] [address] [place] [address], [place] [address] 05 Oct, 2012 [facility] [address] [id number] [address] [place] [address], [place] [address] 14 Sep, 2012 [facility] [address] [id number] [address] [place] [address], [place] [address] 24 Aug, 2012 [facility] [address] [id number] [address] [place] [address], [place] [address] 16 Aug, 2012 [facility] [address] [id number] [address] [place] [address], [place] [address] 15 Aug, 2012 [facility] [address] [id number] [address] [place] [address], [place] [address] Aug, [facility] [address] [id number] [address] [place] [address], [place] [address] Jul, [facility] [address] [id number] [address] [place] [address], [place] [address] Jul, [facility] [address] [id number] [address] [place] [address], [place] [address] Jul, [facility] [address] [id number] [address] [place] [address], [place] [address] Jul, [facility] [address] [id number] [address] [place] [address], [place] [address] Jul, [facility] [address] [id number] [address] [place] [address], [place] [address] Jul, [facility] [address] [id number] [address] [place] [address], [place] [address] Jul, [facility] [address] [id number] [address] [place] [address], [place] [address] Jul, [facility] [address] [id number] [address] [place] [address] Jun, [facility] [address] [id number] [address] [place] [address], [place] [address] Jun, [facility] [address] [id number] [address] [place] [address], [place] [address] Jun, [facility] [address] [id number] [address] [place] [address], [place] [address] Jun, [facility] [address] [id number] [address] [place] [address], [place] [address] Jun, [facility] [address] [id number] [address] [place] [address], [place] [address] Jun, [facility] [address] [id number] [address] [place] [address], [place] [address] May, [facility] [address] [id number] [address] [place] [address], [place] [address] May, [facility] [address] [id number] [address] [place] [address], [place] [address] May, [facility] [address] [id number] [address] [place] [address], [place] [address] May, [facility] [address] [id number] [address] [place] [address], [place] [address] Apr, [facility] [address] [id number] [address] [place] [address], [place] [address] Apr, [facility] [address] [id number] [address] [place] [address] Mar, [facility] [address] [id number] [address] [place] [address], [place] [address] Jan, [facility] [address] [id number] [address] [place] [address], [place] [address] Jan, [facility] [address] [id number] [address] [place] [address], [place] [address] Jan, [facility] [address] [id number] [address] [place] [address], [place] [address] 15 Jan, 2012 [facility] [address] [id number] [address] [place] [address], [place] [address] 14 Jan, 2012 [facility] [address] [id number] [address] [place] [address], [place] [address] 14 Jan, 2012 [facility] [address] [id number] [address] [place] [address], [place] [address] 07 Jan, 2012 [facility] [address] [id number] [address] [place] [address], [place] [address] December, [facility] [address] [id number] [address] [place] [address], [place] [address] December, [facility] [address] [id number] [address] [place] [address], [place] [address] December, [facility] [address] [id number] [address] [place] [address], [place] [address] December, [facility] [address] [id number] [address] [place] [address], [place] [address] Nov, [facility] [address] [id number] [address] [place] [address], [place] [address] 05 Nov, 2011 [facility] [address] [id number] [address] [place] [address], [place] [address] 29 Oct, 2011 [facility] [address] [id number] [address] [place] [address], [place] [address] Oct, [facility] [address] [id number] [address] [place] [address], [place] [address] 15 Oct, 2011 [facility] [address] [id number] [address] [place] [address], [place] [address] Sep, [facility] [address] [id number] [address] [place] [address], [place] [address] Sep, [facility] [address] [id number] [address] [place] [address], [place] [address] Sep, [facility] [address] [id number] [address] [place] [address], [place] [address] Aug, [facility] [address] [id number] [address] [place] [address], [place] [address] Aug, [facility] [address] [id number] [address] [place] [address], [place] [address] Aug, [facility] [address] [id number] [address] [place] [address], [place] [address] Aug, [facility] [address] [id number] [address] [place] [address], [place] [address] Aug, [facility] [address] [id number] [address] [place] [address], [place] [address] Aug, [facility] [address] [id number] [address] [place] [address], [place] [address] Aug, [facility] [address] [id number] [address] [place] [address], [place] [address] Jul, [facility] [address] [id number] [address] [place] [address], [place] [address] Jul, [facility] [address] [id number] [address] [place] [address], [place] [address] Jun, [facility] [address] [id number] [address] [place] [address], [place] [address] Jun, [facility] [address] [id number] [address] [place] [address], [place] [address] 17 Jun, 2011 [facility] [address] [id number] [address] [place] [address], [place] [address] 15 Jun, 2011 [facility] [address] [id number] [address] [place] [address], [place] [address] 14 Jun, 2011 [facility] [address] [id number] [address] [place] [address], [place] [address] 14 Jun, 2011 [facility] [address] [id number] [address] [place] [address], [place] [address] 07 Jun, 2011 [facility] [address] [id number] [address] [place] [address], [place] [address] Jun, [facility] [address] [id number] [address] [place] [address], [place] [address] Jun, [facility] [address] [id number] [address] [place] [address], [place] [address] Jun, [facility] [address] [id number] [address] [place] [address], [place] [address] May, [facility] [address] [id number] [address] [place] [address], [place] [address] May, [facility] [address] [id number] [address] [place] [address], [place] [address] May, [facility] [address] [id number] [address] [place] [address] [address] May, [facility] [address] [id number] [address] [place] [address], [place] [address] May, [facility] [address] [id number] [address] [place] [address], [place] [address] May, [facility] [address] [id number] [address] [place] [address], [place] [address] Feb, [facility] [address] [id number] [address] [place] [address], [place] [address] December, [facility] [address] [id number] [address] [place] [address], [place] [address] Jul, [facility] [address] [id number] [address] [place] [address], [place] [address] Jul, [facility] [address] [id number] [address] [place] [address], [place] [address] Jul, [facility] [address] [id number] [address] [place] [address], [place] [address] Jul, [facility] [address] [id number] [address] [place] [id number] Jun, [facility] [address] [id number] [address] [place] [id number] Jul, [facility] [address] [id number] [address] [place] [phone] Jul, [facility] [address] [id number] [address] [place] [id number] Jul, [facility] [address] [id number] [address] [place] [phone] Jul, [facility] [address] [id number] [address] [place] [id number] Jul, [facility] [address] [id number] [address] [place] [phone] Jul, [facility] [address] [id number] [address] [place] [phone] Jan, [facility] [address] [id number] [address] [place] [phone] Sep, [facility] [address] [id number] [address] [place] [id number] Sep, IMMUNIZATIONS No Known Immunizations SOCIAL HISTORY [...]
--- OUTSIDE RECORDS SUMMARY | 2020-01-27 10:20 | XMS REPORT ---
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 Name Role Phone Migration, Doctor Unavailable Unavailable PROBLEMS Type Condition ICD9-CM Code MRU44-PS Code Onset Dates Condition S tatus SNOMED Code Problem Hypertension I10 Active 9190042 3 Problem Generalized anxiety disorder F41.1 A ctive 607494117 Problem History of colon polyps Z86.010 Active 832289027 Problem History of diverticulitis Z87.19 Acti ve [id number] Problem Family history of diabetes mellitus Z83.3 Active 865564147 Problem Excessive and frequent menstruation with irregular cycle N92.1 Active 075860612 Problem Hot flashes N95.1 Active 70068276 8 Problem Gastroesophageal reflux disease with esophagitis K 21.0 Active 410277320 Problem History of ovarian cyst Z87.42 Active 43410832 Problem Diverticulitis K57.92 Active 91769 6006 Problem Dense breast tissue R92.2 Active 653234206 Problem Perimenopausal N95.1 Active 53249 3692626338 Problem Mitral valve prolapse I34.1 Active 831630403 Problem Abnormal uterine bleeding (AUB) N93.9 Active 02946004232024 Problem Tachycardia R00.0 Active 0343974 ALLERGIES Substance Reaction Event Type Date Status Hydrocodone Unknown Non Drug Allergy Nov, Active ENCOUNTERS Encounter Location Date Diagnosis [facility] [address] [id number] [address] [place] [address] Feb, [facility] [address] [id number] [address] [place] [address] Feb, [facility] [address] [id number] [address] [place] [address] Jan, Breast cancer screening by trenton crenshaw Z12.31 [facility] [address] [id number] [address] [place] [address] Jan, Generalized anxiety disorder F41.1 and Bereavement Z63.4 [facility] [address] [id number] [address] [place] [address] Jan, [facility] [address] [id number] [address] [place] [address] December, Generalized anxiety disorder F41.1 and Bereavement Z63.4 [facility] [address] [id number] [address] [place] [address] December, Diverticulitis K57.92 ; Dysu nick R30.0 ; Other constipation K59.09 and Lower abdominal pain R10.30 [facility] [address] [id number] [address] [place] [address] Nov, Diverticulitis K57.92 [place] [address] [id number] [address] [place] [address] Nov, Generalized anxiety disorder F41.1 and Bereavement Z63.4 [facility] [address] [id number] [address] [place] [address] Nov, Generalized anxiety disorder F41.1 and Bereavement Z63.4 [place] [address] [id number] [address] [place] [address] Nov, Diverticulitis K57.92 [facility] [address] [id number] [address] [place] [address] Oct, Diverticulitis K57.92 [facility] [address] [id number] [address] [place] [address] Oct, Diverticulitis K57.92 [facility] [address] [id number] [address] [place] [address] Oct, Generalized anxiety disorder F41.1 [facility] [address] [id number] [address] [place] [address] Oct, Right lower quadrant abdomin al pain R10.31 and Diverticulitis K57.92 [facility] [address] [id number] [address] [place] [address] Sep, Generalized anxiety disorder F41.1 and Bereavement Z63.4 [facility] [address] [id number] [address] [place] [address] Aug, [facility] [address] [id number] [address] [place] [address] Aug, Generalized anxiety disorder F41.1 and Bereavement Z63.4 [facility] [address] [id number] [address] [place] [address] Aug, Caries K02.9 [facility] [address] [id number] [address] [place] [address] Jul, Generalized anxiety disorder F41.1 and Bereavement Z63.4 [facility] [address] [id number] [address] [place] [address] Jul, Other acute gastritis withou t hemorrhage K29.00 ; Generalized anxiety disorder F41.1 ; Tachycardia R00.0 and Essential hypertension I10 [facility] [address] [id number] [address] [place] [address] Jul, Generalized anxiety disorder F41.1 and Bereavement Z63.4 [facility] [address] [id number] [address] [place] [address] Jun, Generalized anxiety disorder F41.1 and Bereavement Z63.4 [facility] [address] [id number] [address] [place] [address] Jun, Generalized anxiety disorder F41.1 and Bereavement Z63.4 [facility] [address] [id number] [address] [place] [address] 02 Jun, 2018 Dental examination Z01.20 [facility] [address] [id number] [address] [place] [address] May, Generalized anxiety disorder F41.1 and Bereavement Z63.4 [facility] [address] [id number] [address] [place] [address] 08 May, 2018 Encounter for immunization Z 23 [facility] [address] [id number] [address] [place] [address] 08 May, 2018 Generalized anxiety disorder F41.1 and Bereavement Z63.4 [facility] [address] [id number] [address] [place] [address] May, [facility] [address] [id number] [address] [place] [address] 24 Apr, 2018 Generalized anxiety disorder F41.1 and Bereavement Z63.4 [facility] [address] [id number] [address] [place] [address] 17 Apr, 2018 [facility] [address] [id number] [address] [place] [address] Apr, Diverticulitis K57.92 [facility] [address] [id number] [address] [place] [address] Apr, Generalized anxiety disorder F41.1 and Bereavement Z63.4 [facility] [address] [id number] [address] [place] [address] Mar, [facility] [address] [id number] [address] [place] [address] Mar, Diverticulitis K57.92 [facility] [address] [id number] [address] [place] [address] Mar, Generalized anxiety disorder F41.1 and Bereavement Z63.4 [facility] [address] [id number] [address] [place] [address] Mar, Hypertension I10 [facility] [address] [id number] [address] [place] [address] Mar, Generalized anxiety disorder F41.1 and Bereavement Z63.4 [facility] [address] [id number] [address] [place] [address] Feb, Generalized anxiety disorder F41.1 and Bereavement Z63.4 [facility] [address] [id number] [address] [place] [address] Feb, [facility] [address] [id number] [address] [place] [address] Feb, Generalized anxiety disorder F41.1 and Bereavement Z63.4 [facility] [address] [id number] [address] [place] [address] Feb, Generalized anxiety disorder F41.1 and Bereavement Z63.4 [facility] [address] [id number] [address] [place] [address] Jan, Hypertension I10 and Acute n on-recurrent maxillary sinusitis J01.00 [facility] [address] [id number] [address] [place] [address] December, [facility] [address] [id number] [address] [place] [address] December, Hypertension I10 [facility] [address] [id number] [address] [place] [address] December, Generalized anxiety disorder F41.1 [facility] [address] [id number] [address] [place] [address] Oct, Encounter for dental examina tion Z01.20 [facility] [address] [id number] [address] [place] [address] Oct, Encounter for dental examina tion Z01.20 [facility] [address] [id number] [address] [place] [address] Oct, Dental examination Z01.20 [facility] [address] [id number] [address] [place] [address] Oct, Generalized anxiety disorder F41.1 [facility] [address] [id number] [address] [place] [address] 30 Aug, 2017 Dental examination Z01.20 [facility] [address] [id number] [address] [place] [address] Aug, Generalized anxiety disorder F41.1 [facility] [address] [id number] [address] [place] [address] 19 Aug, 2017 [facility] [address] [id number] [address] [place] [address] 09 Aug, 2017 Encounter for dental examina tion Z01.20 [facility] [address] [id number] [address] [place] [address] 08 Aug, 2017 Subacute maxillary sinusitis J01.00 [facility] [address] [id number] [address] [place] [address] 22 Jul, 2017 Dental examination Z01.20 [facility] [address] [id number] [address] [place] [address] 19 Jul, 2017 Generalized anxiety disorder F41.1 [facility] [address] [id number] [address] [place] [address] 11 Jul, 2017 Diverticulitis K57.92 [facility] [address] [id number] [address] [place] [address] 28 Jun, 2017 Encounter for immunization Z 23 [facility] [address] [id number] [address] [place] [address] 22 Jun, 2017 Dental examination Z01.20 [facility] [address] [id number] [address] [place] [address] 14 Jun, 2017 Generalized anxiety disorder F41.1 [facility] [address] [id number] [address] [place] [address] 07 Jun, 2017 Dental examination Z01.20 [facility] [address] [id number] [address] [place] [address] 30 May, 2017 [facility] [address] [id number] [address] [place] [id number] May, Dental examination Z01.20 [facility] [address] [id number] [address] [place] [address] [id number] May, Dental examination Z01.20 [facility] [address] [id number] [address] [place] [address] May, Dental examination Z01.20 [facility] [address] [id number] [address] [place] [address] May, [facility] [address] [id number] [address] [place] [address] May, Generalized anxiety disorder F41.1 [facility] [address] [id number] [address] [place] [address] May, Localized edema R60.0 ; Yeas t vaginitis B37.3 and Gastroesophageal reflux disease with esophagitis K21.0 [facility] [address] [id number] [address] [place] [address] [id number] Apr, Dental examination Z01.20 [facility] [address] [id number] [address] [place] [address] Apr, Dental examination Z01.20 [facility] [address] [id number] [address] [place] [address] Apr, Dental examination Z01.20 [facility] [address] [id number] [address] [place] [address] Mar, Dyspepsia R10.13 [facility] [address] [id number] [address] [place] [address] Mar, Generalized anxiety disorder F41.1 [facility] [address] [id number] [address] [place] [address] Mar, Encounter for dental examina tion Z01.20 [facility] [address] [id number] [address] [place] [address] [id number] Mar, [facility] [address] [id number] [address] [place] [address] [phone] Mar, Dental examination Z01.20 [facility] [address] [id number] [address] [place] [address] Feb, Hypertension I10 and Tachyca rdia R00.0 [facility] [address] [facility] [address] [id number] [place] [address] Feb, [facility] [address] [id number] [address] [place] [address] Feb, Generalized anxiety disorder F41.1 [facility] [address] [id number] [address] [place] [address] [id number] Feb, Dental examination Z01.20 [facility] [address] [id number] [address] [place] [address] Jan, Generalized anxiety disorder F41.1 [facility] [address] [id number] [address] [place] [address] December, Generalized anxiety disorder F41.1 [facility] [address] [id number] [address] [place] [address] [id number] December, Encounter for dental examina tion Z01.20 [facility] [address] [id number] [address] [place] [address] Nov, [facility] [address] [id number] [address] [place] [address] Nov, [facility] [address] [id number] [address] [place] [address] Nov, Generalized anxiety disorder F41.1 [facility] [address] [id number] [address] [place] [address] Oct, [facility] [address] [id number] [address] [place] [address] [id number] Oct, Dental examination Z01.20 [facility] [address] [address] Oct, Vaginal dryness N89.8 [place] [address] [address] Oct, Pseudoseizures F44.5 [place] [address] [address] Oct, Generalized anxiety disorder F41.1 [place] [address] [address] Sep, Abnormal uterine bleeding (A UB) N93.9 ; Vaginal dryness N89.8 and Screening breast examination Z12.39 [place] [address] [address] Sep, Dental examination Z01.20 [place] [address] [address] Sep, Generalized anxiety disorder F41.1 [place] [address] [address] 06 Sep, 2016 Unspecified ovarian cyst, ri ght side N83.201 ; Unspecified ovarian cyst, left side N83.202 ; Yeast infection of the vagina B37.3 ; Mitral valve prolapse I34.1 and Hypertension I10 [place] [address] [address] Aug, Generalized anxiety disorder F41.1 [place] [address] [address] Jul, [place] [address] [address] Jul, Generalized anxiety disorder F41.1 [place] [address] [place] [id number] [place] [address] Jun, Generalized anxiety disorder F41.1 [place] [address] [address] May, Encounter for immunization Z 23 [facility] [address] [id number] [address] [place] [address] 17 May, 2016 Generalized anxiety disorder F41.1 and Depressive disorder, not elsewhere classified F32.9 [facility] [address] [id number] [address] [place] [address] 28 Apr, 2016 Hypertension I10 [facility] [address] [id number] [address] [place] [address] 22 Apr, 2016 Cervicalgia M54.2 [facility] [address] [id number] [address] [place] [address] 12 Apr, 2016 Cervicalgia M54.2 [facility] [address] [id number] [address] [place] [address] Mar, Generalized anxiety disorder F41.1 and Depressive disorder, not elsewhere classified F32.9 [facility] [address] [id number] [address] [place] [address] [id number] Feb, Visit for dental examination Z01.20 [facility] [address] [facility] [facility] [id number] [address] [place] [address] Feb, Pseudoseizures F44.5 ; Migra ine without status migrainosus, not intractable, unspecified migraine type G43.909 and Essential hypertension I10 [facility] [address] [id number] [address] [place] [address] [id number] Feb, Dental examination Z01.20 [facility] [address] [id number] [address] [place] [address] Feb, Generalized anxiety disorder F41.1 and Depressive disorder, not elsewhere classified F32.9 [facility] [address] [id number] [address] [place] [address] Jan, Tachycardia R00.0 [facility] [address] [id number] [address] [place] [address] December, Eustachian tube dysfunction, bilateral H69.83 [place] [address] [facility] [id number] [address] [place] [address] December, Generalized anxiety disorder F41.1 and Depressive disorder, not elsewhere classified F32.9 [place] [address] [id number] [address] [place] [address] Nov, [place] [address] [place] [id number] [address] [place] [address] Nov, [place] [address] [place] [id number] [address] [place] [address] Nov, Hypertension I10 ; Onychomyc osis B35.1 [...] cyst of left ovary N83.29 [place] [address] [place] [id number] [address] [place] [address] 14 Nov, 2015 Sinusitis J32.9 [place] [address] [place] [id number] [address] [place] [address] Oct, Complex cyst of left ovary N 83.29 [place] [address] [facility] [id number] [address] [place] [address] Oct, Onychomycosis B35.1 [facility] [address] [facility] [id number] [address] [place] [address] [id number] 17 Oct, 2015 Dental examination Z01.20 [place] [address] [facility] [id number] [address] [place] [address] 09 Oct, 2015 Well woman exam Z01.419 [...] R92.2 and History of colon polyps Z86.010 [facility] [address] [id number] [address] [place] [address] 03 Oct, 2016 Generalized anxiety disorder F41.1 and Depressive disorder, not elsewhere classified F32.9 [place] [address] [id number] [address] [place] [address] Sep, Hypertension I10 and Onychom ycosis B35.1 [place] [address] [facility] [id number] [address] [place] [address] 16 Sep, 2015 Skin tags, multiple acquired L91.8 [place] [address] [facility] [id number] [address] [place] [address] Aug, [place] [address] [id number] [address] [place] [address] Aug, [place] [address] [facility] [id number] [address] [place] [address] Aug, [place] [address] [facility] [id number] [address] [place] [address] Aug, Generalized anxiety disorder F41.1 and Depressive disorder, not elsewhere classified F32.9 [place] [address] [id number] [address] [place] [address] Jul, Skin lesion L98.9 [place] [address] [facility] [id number] [address] [place] [address] Jun, Generalized anxiety disorder F41.1 and Depressive disorder, not elsewhere classified F32.9 [place] [address] [facility] [id number] [address] [place] [address] Jun, [place] [address] [facility] [id number] [address] [place] [address] Jun, Generalized anxiety disorder F41.1 [facility] [address] [place] [id number] [place] [address] May, Encounter for immunization Z 23 and Right shoulder pain M25.511 [facility] [address] [facility] [id number] [address] [place] [address] Apr, [facility] [address] [facility] [address] [id number] [place] [address] 14 Apr, 2015 Generalized anxiety disorder 300.02 and Depressive disorder, not elsewhere classified [address] [facility] [address] [id number] [place] [address] [id number] Mar, Dental examination V72.2 [facility] [address] [place] [id number] [place] [address] Mar, Generalized anxiety disorder 300.02 and Depressive disorder, not elsewhere classified 311 [facility] [address] [place] [id number] [place] [address] Mar, Depression, major, recurrent , 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.35 and 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 [facility] [address] [place] [id number] [address] [place] [address] Feb, Generalized anxiety disorder 300.02 and Depressive disorder, not elsewhere classified [address] [facility] [address] [place] [id number] [place] [address] [id number] Feb, Dental examination V72.2 [facility] [address] [facility] [id number] [address] [place] [address] Jan, Generalized anxiety disorder 300.02 and Depressive disorder, not elsewhere classified 311 [facility] [address] [place] [id number] [address] [place] [address] Jan, [facility] [address] [place] [id number] [address] [place] [address] December, Generalized anxiety disorder 300.02 and Depressive disorder, not elsewhere classified 311 [facility] [address] [id number] [address] [place] [address] December, Major depressive disorder, r ecurrent, unspecified 296.30 and Panic disorder with agoraphobia 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 [facility] [address] [id number] [address] [place] [address] 14 Nov, 2014 [facility] [address] [id number] [address] [place] [phone] Nov, [facility] [address] [id number] [address] [place] [id number] Oct, [facility] [address] [id number] [address] [place] [id number] Oct, [facility] [address] [facility] [id number] [address] [place] [id number] Oct, [facility] [address] [facility] [id number] [address] [place] [id number] Oct, [facility] [address] [id number] [address] [place] [id number] Sep, [facility] [address] [facility] [id number] [address] [place] [id number] Sep, [facility] [address] [facility] [id number] [address] [place] [id number] Sep, [facility] [address] [facility] [id number] [address] [place] [id number] Sep, [facility] [address] [facility] [id number] [address] [place] [id number] Sep, [facility] [address] [id number] [address] [place] [id number] Sep, [facility] [address] [facility] [id number] [address] [place] [id number] Sep, [facility] [address] [facility] [id number] [address] [place] [id number] Sep, [facility] [address] [id number] [address] [place] [address], [place] [id number] Sep, [facility] [address] [id number] [address] [place] [address], [place] [address] Sep, [facility] [address] [id number] [address] [place] [address], [place] [id number] Aug, [facility] [address] [id number] [address] [place] [address], [place] [id number] Aug, [facility] [address] [id number] [address] [place] [address], [place] [id number] Jul, [facility] [address] [id number] [address] [place] [address], [place] [id number] Jul, [facility] [address] [id number] [address] [place] [address], [place] [id number] Jul, [facility] [address] [id number] [address] [place] [address], [place] [id number] Jul, [facility] [address] [id number] [address] [place] [address], [place] [address] Jul, [facility] [address] [id number] [address] [place] [address], [place] [address] Jul, [facility] [address] [id number] [address] [place] [address], [place] [address] 05 Jul, 2014 [facility] [address] [id number] [address] [place] [address], [place] [address] 05 Jul, 2014 [facility] [address] [id number] [address] [place] [address], [place] [address] 04 Jul, 2014 [facility] [address] [id number] [address] [place] [address], [place] [address] 04 Jul, 2014 [facility] [address] [id number] [address] [place] [address], [place] [address] Jul, [facility] [address] [id number] [address] [place] [address], [place] [address] Jul, [facility] [address] [id number] [address] [place] [address], [place] [address] Jun, [facility] [address] [id number] [address] [place] [address], [place] [address] Jun, [facility] [address] [id number] [address] [place] [address], [place] [address] May, [facility] [address] [id number] [address] [place] [address], [place] [address] May, [facility] [address] [id number] [address] [place] [address], [place] [address] May, [facility] [address] [id number] [address] [place] [address], [place] [address] May, [facility] [address] [id number] [address] [place] [address], [place] [address] May, [facility] [address] [id number] [address] [place] [address], [place] [address] May, [facility] [address] [id number] [address] [place] [address], [place] [address] May, [facility] [address] [id number] [address] [place] [address], [place] [address] May, [facility] [address] [id number] [address] [place] [address], [place] [address] May, [facility] [address] [id number] [address] [place] [address], [place] [address] May, [facility] [address] [id number] [address] [place] [address], [place] [address] May, [facility] [address] [id number] [address] [place] [address], [place] [address] May, [facility] [address] [id number] [address] [place] [address], [place] [address] Apr, [facility] [address] [id number] [address] [place] [address], [place] [address] 30 Apr, 2013 [facility] [address] [id number] [address] [place] [address], [place] [address] Apr, [facility] [address] [id number] [address] [place] [address], [place] [address] Apr, 2013 [facility] [address] [id number] [address] [place] [address], [place] [address] Apr, 2013 [facility] [address] [id number] [address] [place] [address], [place] [address] Apr, [facility] [address] [id number] [address] [place] [address], [place] [address] Feb, [facility] [address] [id number] [address] [place] [address], [place] [address] Feb, [facility] [address] [id number] [address] [place] [address], [place] [address] Feb, [facility] [address] [id number] [address] [place] [address], [place] [address] Feb, [facility] [address] [id number] [address] [place] [address], [place] [address] Feb, [facility] [address] [id number] [address] [place] [address], [place] [address] Feb, [facility] [address] [id number] [address] [place] [address], [place] [address] Jan, [facility] [address] [id number] [address] [place] [address], [place] [address] Jan, [facility] [address] [id number] [address] [place] [address], [place] [address] Jan, [facility] [address] [id number] [address] [place] [address], [place] [address] Jan, [facility] [address] [id number] [address] [place] [address], [place] [address] Jan, [facility] [address] [id number] [facility] [place] [address] Jan, [facility] [address] [id number] [address] [place] [address], [place] [address] Jan, [facility] [address] [id number] [address] [place] [address], [place] [address] Jan, [facility] [address] [id number] [address] [place] [address], [place] [address] December, [facility] [address] [id number] [address] [place] [address], [place] [address] December, [facility] [address] [id number] [address] [place] [address], [place] [address] December, [facility] [address] [id number] [address] [place] [address], [place] [address] December, [facility] [address] [id number] [address] [place] [address], [place] [address] Nov, [facility] [address] [id number] [address] [place] [address], [place] [address] Nov, [facility] [address] [id number] [address] [place] [address], [place] [address] Nov, [facility] [address] [id number] [address] [place] [address], [place] [address] Nov, [facility] [address] [id number] [address] [place] [address], [place] [address] Nov, [facility] [address] [id number] [address] [place] [address], [place] [address] Nov, [facility] [address] [id number] [address] [place] [address], [place] [address] Nov, [facility] [address] [id number] [address] [place] [address], [place] [address] Nov, [facility] [address] [id number] [address] [place] [address], [place] [address] Oct, [facility] [address] [id number] [address] [place] [address], [place] [address] Oct, [facility] [address] [id number] [address] [place] [address], [place] [address] Sep, [facility] [address] [id number] [address] [place] [address], [place] [address] Sep, [facility] [address] [id number] [address] [place] [address], [place] [id number] Sep, [facility] [address] [id number] [address] [place] [address], [place] [address] Sep, [facility] [address] [id number] [address] [place] [address], [place] [address] Sep, [facility] [address] [id number] [address] [place] [address], [place] [address] Sep, [facility] [address] [id number] [address] [place] [address], [place] [address] Aug, [facility] [address] [id number] [address] [place] [address], [place] [address] Aug, [facility] [address] [id number] [address] [place] [address], [place] [address] Aug, [facility] [address] [id number] [address] [place] [address], [place] [address] Aug, [facility] [address] [id number] [address] [place] [address], [place] [address] Jul, [facility] [address] [id number] [address] [place] [address], [place] [address] Jul, [facility] [address] [id number] [address] [place] [address], [place] [address] Jul, [facility] [address] [id number] [address] [place] [address] Jul, [facility] [address] [id number] [address] [place] [address], [place] [address] Jun, [facility] [address] [id number] [address] [place] [address], [place] [address] Jun, [facility] [address] [id number] [address] [place] [address], [place] [address] May, [facility] [address] [id number] [address] [place] [address], [place] [address] May, [facility] [address] [id number] [address] [place] [address], [place] [address] May, [facility] [address] [id number] [address] [place] [address], [place] [address] May, [facility] [address] [id number] [address] [place] [address], [place] [address] May, [facility] [address] [id number] [address] [place] [address], [place] [address] Apr, [facility] [address] [id number] [address] [place] [address], [place] [address] Apr, [facility] [address] [id number] [address] [place] [address], [place] [address] Mar, [facility] [address] [id number] [address] [place] [address], [place] [address] Mar, [facility] [address] [id number] [address] [place] [address], [place] [address] Mar, [facility] [address] [id number] [address] [place] [address], [place] [address] Mar, [facility] [address] [id number] [address] [place] [address], [place] [address] Feb, [facility] [address] [id number] [address] [place] [address], [place] [address] Feb, [facility] [address] [id number] [address] [place] [address], [place] [address] 16 Feb, 2013 [facility] [address] [id number] [address] [place] [address], [place] [address] 12 Feb, 2013 [facility] [address] [id number] [address] [place] [address], [place] [address] 10 Feb, 2013 [facility] [address] [id number] [address] [place] [address], [place] [address] Jan, [facility] [address] [id number] [address] [place] [address], [place] [address] Jan, [facility] [address] [id number] [address] [place] [address], [place] [address] Jan, [facility] [address] [id number] [address] [place] [address], [place] [address] Jan, [facility] [address] [id number] [address] [place] [address], [place] [address] Jan, [facility] [address] [id number] [address] [place] [address], [place] [address] December, [facility] [address] [id number] [address] [place] [address], [place] [address] December, [facility] [address] [id number] [address] [place] [address], [place] [address] 17 Nov, 2012 [facility] [address] [id number] [address] [place] [address], [place] [address] Nov, [facility] [address] [id number] [address] [place] [address], [place] [address] Oct, [facility] [address] [id number] [address] [place] [address], [place] [address] 13 Oct, 2012 [facility] [address] [id number] [address] [place] [address], [place] [address] 05 Oct, 2012 [facility] [address] [id number] [address] [place] [address], [place] [address] 14 Sep, 2012 [facility] [address] [id number] [address] [place] [address], [place] [address] Aug, [facility] [address] [id number] [address] [place] [address], [place] [address] Aug, [facility] [address] [id number] [address] [place] [address], [place] [address] Aug, [facility] [address] [id number] [address] [place] [address], [place] [address] Aug, [facility] [address] [id number] [address] [place] [address], [place] [address] Jul, [facility] [address] [id number] [address] [place] [address], [place] [address] Jul, [facility] [address] [id number] [address] [place] [address], [place] [address] Jul, [facility] [address] [id number] [address] [place] [address], [place] [address] Jul, [facility] [address] [id number] [address] [place] [address], [place] [address] Jul, [facility] [address] [id number] [address] [place] [address], [place] [address] Jul, [facility] [address] [id number] [address] [place] [address], [place] [address] Jul, [facility] [address] [id number] [address] [place] [address], [place] [address] Jul, [facility] [address] [id number] [address] [place] [address], [place] [address] Jun, [facility] [address] [id number] [address] [place] [address], [place] [address] Jun, [facility] [address] [id number] [address] [place] [address], [place] [address] Jun, [facility] [address] [id number] [address] [place] [address], [place] [address] Jun, [facility] [address] [id number] [address] [place] [address], [place] [address] Jun, [facility] [address] [id number] [address] [place] [address], [place] [address] Jun, [facility] [address] [id number] [address] [place] [address], [place] [address] May, [facility] [address] [id number] [address] [place] [address], [place] [address] May, [facility] [address] [id number] [address] [place] [address], [place] [address] May, [facility] [address] [id number] [address] [place] [address], [place] [address] May, [facility] [address] [id number] [address] [place] [address], [place] [address] Apr, [facility] [address] [id number] [address] [place] [address], [place] [address] 06 Apr, 2012 [facility] [address] [id number] [address] [place] [address], [place] [address] Mar, [facility] [address] [id number] [address] [place] [address], [place] [address] 28 Jan, 2012 [facility] [address] [id number] [address] [place] [address], [place] [address] 20 Jan, 2012 [facility] [address] [id number] [address] [place] [address], [place] [address] 16 Jan, 2012 [facility] [address] [id number] [address] [place] [address], [place] [address] 15 Jan, 2012 [facility] [address] [id number] [address] [place] [address], [place] [address] 14 Jan, 2012 [facility] [address] [id number] [address] [place] [address], [place] [address] 14 Jan, 2012 [facility] [address] [id number] [address] [place] [address], [place] [address] Jan, [facility] [address] [id number] [address] [place] [address], [place] [address] December, [facility] [address] [id number] [address] [place] [address], [place] [address] December, [facility] [address] [id number] [address] [place] [address], [place] [address] December, [facility] [address] [id number] [address] [place] [address], [place] [address] December, [facility] [address] [id number] [address] [place] [address], [place] [address] Nov, [facility] [address] [id number] [address] [place] [address], [place] [address] Nov, [facility] [address] [id number] [address] [place] [address], [place] [address] Oct, [facility] [address] [id number] [address] [place] [address], [place] [address] Oct, [facility] [address] [id number] [address] [place] [address], [place] [address] Oct, [facility] [address] [id number] [address] [place] [address], [place] [address] Sep, [facility] [address] [id number] [address] [place] [address], [place] [address] Sep, [facility] [address] [id number] [address] [place] [address], [place] [address] Sep, [facility] [address] [id number] [address] [place] [address], [place] [address] Aug, [facility] [address] [id number] [address] [place] [address], [place] [address] Aug, [facility] [address] [id number] [address] [place] [address], [place] [address] Aug, [facility] [address] [id number] [address] [place] [address], [place] [address] Aug, [facility] [address] [id number] [address] [place] [address], [place] [address] Aug, [facility] [address] [id number] [address] [place] [address], [place] [address] Aug, [facility] [address] [id number] [address] [place] [address], [place] [address] Aug, [facility] [address] [id number] [address] [place] [address], [place] [address] Jul, [facility] [address] [id number] [address] [place] [address], [place] [address] Jul, [facility] [address] [id number] [address] [place] [address], [place] [address] 30 Jun, 2011 [facility] [address] [id number] [address] [place] [address], [place] [address] 28 Jun, 2011 [facility] [address] [id number] [address] [place] [address], [place] [address] 17 Jun, 2011 [facility] [address] [id number] [address] [place] [address], [place] [address] 15 Jun, 2011 [facility] [address] [id number] [address] [place] [address], [place] [address] 14 Jun, 2011 [facility] [address] [id number] [address] [place] [address] 14 Jun, 2011 [facility] [address] [id number] [address] [place] [address], [place] [address] 07 Jun, 2011 [facility] [address] [id number] [address] [place] [address], [place] [address] 07 Jun, 2011 [facility] [address] [id number] [address] [place] [address], [place] [id number] 02 Jun, 2011 [facility] [address] [id number] [address] [place] [address], [place] [id number] 02 Jun, 2011 [facility] [address] [id number] [address] [place] [address], [place] [id number] May, [facility] [address] [id number] [address] [place] [address], [place] [id number] May, [facility] [address] [id number] [address] [place] [address], [place] [address] May, [facility] [address] [id number] [address] [place] [address], [place] [address] 24 May, 2011 [facility] [address] [id number] [address] [place] [address], [place] [id number] 18 May, 2011 [facility] [address] [id number] [address] [place] [address], [place] [address] May, [facility] [address] [id number] [address] [place] [address], [place] [address] Feb, [facility] [address] [id number] [address] [place] [address], [place] [id number] December, [facility] [address] [id number] [address] [place] [address], [place] [address] Jul, [facility] [address] [id number] [address] [place] [address], [place] [address] 29 Jul, 2010 [facility] [address] [id number] [address] [place] [address], [place] [address] 22 Jul, 2010 [facility] [address] [id number] [address] [place] [address], [place] [address] Jul, [facility] [address] [id number] [address] [place] [address], [place] [address] 15 Jun, 2010 [facility] [address] [id number] [address] [place] [address], [place] [address] 31 Jul, 2009 [facility] [address] [id number] [address] [place] [address], [place] [address] Jul, [facility] [address] [id number] [address] [place] [id number] Jul, [facility] [address] [id number] [address] [place] [id number] Jul, [facility] [address] [id number] [address] [place] [id number] Jul, [facility] [address] [id number] [address] [place] [id number] Jul, [facility] [address] [id number] [address] [place] [id number] Jan, [facility] [address] [id number] [address] [place] [id number] Sep, [facility] [address] [facility] [id number] [address] [place] [id number] Sep, IMMUNIZATIONS No Known Immunizations SOCIAL HISTORY Never Assessed REASON FOR VISIT [facility] [place] PLAN OF CARE VITAL SIGNS MEDICATIONS Medication Instructions Dosage Frequency Start Date End Date Duration S tatus Clindamycin HCl 150 mg take 2 capsules ( 300 mg) by oral route every 6 hours for 10 days Jul, Active Aciphex 20 mg 1 tablet by Oral route 1 time per day 02 M 2014 Active Hydrochlorothiazide 12.5 mg 1-2 capsule by Oral route 1 time per day PRN swelling Jan, Active propranolol 20 mg 1 tablet by Oral route 1 time per da y PRN TACHYCARDIA Apr, Active Abilify 2 mg 1 tablet by Oral route 1 time per day at HS Aug, Active Hyoscyamine Sulfate 0.125 mg 1 tablet by Oral route 4 times per day PRN Jul, Active Flonase 50 mcg/actuation 2 Nasal [place] by Nasal route 1 time per day May, Active Cipro 500 mg 1 tablet by Oral route every 12 hours for 10 day(s) Nov, Active clorazepate 7.5 mg 1 tablet by Oral rou te 2 times per day Also take one or 2 in afternoon prn anxiety Aug, Act jerrod Augmentin 875-125 mg 1 tablet by Oral route 2 times pe r day for 10 day(s) Mar, Active Lamisil 250 mg 1 tablet by Oral rou te 1 time per day for 30 day(s)Take daily for full 3 mo. for toenail fungus Jan, Active RESULTS No Results PROCEDURES No Known [...]
--- OUTSIDE RECORDS SUMMARY | 2020-01-27 10:20 | XMS REPORT ---
Author Author Silvia WILKINS Organization [facility] Address [address] [place] [address] Care Team Providers Care Key Punch Operator Name Role Phone LETTY WILKINS Unavailable PROBLEMS Type Condition ICD9-CM Code SSL73-NO Code Onset Dates Condition S tatus SNOMED Code Problem Hypertension I10 Active 1040491 3 Problem Generalized anxiety disorder F41.1 A ctive 179019788 Problem History of colon polyps Z86.010 Active 764315600 Problem History of diverticulitis Z87.19 Acti ve [id number] Problem Family history of diabetes mellitus Z83.3 Active 499457523 Problem Excessive and frequent menstruation with irregular cycle N92.1 Active 311237602 Problem Hot flashes N95.1 Active 96992011 8 Problem Gastroesophageal reflux disease with esophagitis K 21.0 Active 725623158 Problem History of ovarian cyst Z87.42 Active 78132074 Problem Diverticulitis K57.92 Active 10345 6006 Problem Dense breast tissue R92.2 Active 652974406 Problem Perimenopausal N95.1 Active 60725 2218839994 Problem Mitral valve prolapse I34.1 Active 986882509 Problem Abnormal uterine bleeding (AUB) N93.9 Active 70785772219276 Problem Tachycardia R00.0 Active 7223754 ALLERGIES No Information ENCOUNTERS Encounter Location Date Diagnosis [facility] [address] [facility] [id number] [address] [place] [phone] Feb, [facility] [address] [facility] [id number] [address] [place] [phone] Feb, [facility] [address] [facility] [id number] [address] [place] [phone] Jan, [facility] [address] [facility] [id number] [address] [place] [phone] Jan, Breast cancer screening by trenton crenshaw Z12.31 [facility] [address] [facility] [id number] [address] [place] [address] Jan, Generalized anxiety disorder F41.1 and Bereavement Z63.4 [facility] [address] [id number] [address] [place] [address] Jan, [facility] [address] [facility] [id number] [address] [place] [address] December, Generalized anxiety disorder F41.1 and Bereavement Z63.4 [facility] [address] [facility] [id number] [address] [place] [address] December, Diverticulitis K57.92 ; Dysu nick R30.0 ; Other constipation K59.09 and Lower abdominal pain R10.30 [facility] [address] [facility] [id number] [address] [place] [address] Nov, Diverticulitis K57.92 [facility] [address] [facility] [id number] [address] [place] [address] Nov, Generalized anxiety disorder F41.1 and Bereavement Z63.4 [facility] [address] [facility] [id number] [address] [place] [address] Nov, Generalized anxiety disorder F41.1 and Bereavement Z63.4 [facility] [address] [facility] [id number] [address] [place] [address] Nov, Diverticulitis K57.92 [facility] [address] [facility] [id number] [address] [place] [address] Oct, Diverticulitis K57.92 [facility] [address] [facility] [id number] [address] [place] [address] Oct, Diverticulitis K57.92 [facility] [address] [facility] [id number] [address] [place] [phone] Oct, Generalized anxiety disorder F41.1 [facility] [address] [facility] [id number] [address] [place] [phone] Oct, Right lower quadrant abdomin al pain R10.31 and Diverticulitis K57.92 [facility] [address] [facility] [id number] [address] [place] [address] Sep, Generalized anxiety disorder F41.1 and Bereavement Z63.4 [facility] [address] [place] [id number] [address] [place] [address] Aug, [facility] [address] [facility] [id number] [address] [place] [address] Aug, Generalized anxiety disorder F41.1 and Bereavement Z63.4 [facility] [address] [id number] [place] [address] Aug, Caries K02.9 [place] [address] [place] [id number] [address] [place] [phone] Jul, Generalized anxiety disorder F41.1 and Bereavement Z63.4 [facility] [address] [place] [id number] [address] [place] [address] Jul, Other acute gastritis withou t hemorrhage K29.00 ; Generalized anxiety disorder F41.1 ; Tachycardia R00.0 and Essential hypertension I10 [facility] [address] [place] [id number] [address] [place] [phone] Jul, Generalized anxiety disorder F41.1 and Bereavement Z63.4 [facility] [address] [place] [id number] [address] [place] [address] Jun, Generalized anxiety disorder F41.1 and Bereavement Z63.4 [facility] [address] [place] [id number] [address] [place] [address] Jun, Generalized anxiety disorder F41.1 and Bereavement Z63.4 [facility] [address] [id number] [place] [address] 02 Jun, 2018 Dental examination Z01.20 [facility] [address] [id number] [address] [place] [address] May, Generalized anxiety disorder F41.1 and Bereavement Z63.4 [facility] [address] [id number] [address] [place] [address] 08 May, 2018 Encounter for immunization Z 23 [facility] [address] [id number] [address] [place] [address] May, Generalized anxiety disorder F41.1 and Bereavement Z63.4 [facility] [address] [id number] [address] [place] [address] May, [facility] [address] [id number] [address] [place] [address] 24 Apr, 2018 Generalized anxiety disorder F41.1 and Bereavement Z63.4 [facility] [address] [id number] [address] [place] [address] 17 Apr, 2018 [facility] [address] [id number] [address] [place] [address] Apr, Diverticulitis K57.92 [facility] [address] [id number] [address] [place] [address] 10 Apr, 2018 Generalized anxiety disorder F41.1 and Bereavement Z63.4 [facility] [address] [id number] [address] [place] [address] Mar, [facility] [address] [id number] [address] [place] [address] Mar, Diverticulitis K57.92 [facility] [address] [id number] [address] [place] [address] Mar, Generalized anxiety disorder F41.1 and Bereavement Z63.4 [facility] [address] [facility] [id number] [address] [place] [phone] Mar, Hypertension I10 [facility] [address] [id number] [address] [place] [address] Mar, Generalized anxiety disorder F41.1 and Bereavement Z63.4 [facility] [address] [id number] [address] [place] [address] Feb, Generalized anxiety disorder F41.1 and Bereavement Z63.4 [facility] [address] [id number] [address] [place] [phone] Feb, [facility] [address] [id number] [address] [place] [address] Feb, Generalized anxiety disorder F41.1 and Bereavement Z63.4 [facility] [address] [id number] [address] [place] [address] Feb, Generalized anxiety disorder F41.1 and Bereavement Z63.4 [facility] [address] [id number] [address] [place] [address] Jan, Hypertension I10 and Acute n on-recurrent maxillary sinusitis J01.00 [facility] [address] [id number] [address] [place] [address] December, [facility] [address] [id number] [address] [place] [address] December, Hypertension I10 [facility] [address] [id number] [address] [place] [address] December, Generalized anxiety disorder F41.1 [facility] [address] [id number] [address] [place] [address] Oct, Encounter for dental examina tion Z01.20 [facility] [address] [id number] [address] [place] [address] Oct, Encounter for dental examina tion Z01.20 [facility] [address] [id number] [address] [place] [address] Oct, Dental examination Z01.20 [facility] [address] [id number] [address] [place] [address] Oct, Generalized anxiety disorder F41.1 [facility] [address] [id number] [address] [place] [address] 30 Aug, 2017 Dental examination Z01.20 [facility] [address] [id number] [address] [place] [address] Aug, Generalized anxiety disorder F41.1 [facility] [address] [id number] [address] [place] [address] Aug, [facility] [address] [id number] [address] [place] [address] 09 Aug, 2017 Encounter for dental examina tion Z01.20 [facility] [address] [id number] [address] [place] [address] Aug, Subacute maxillary sinusitis J01.00 [facility] [address] [id number] [address] [place] [address] Jul, Dental examination Z01.20 [facility] [address] [id number] [address] [place] [address] 19 Jul, 2017 Generalized anxiety disorder F41.1 [facility] [address] [id number] [address] [place] [address] 11 Jul, 2017 Diverticulitis K57.92 [facility] [address] [id number] [address] [place] [phone] 28 Jun, 2017 Encounter for immunization Z 23 [facility] [address] [id number] [address] [place] [address] 22 Jun, 2017 Dental examination Z01.20 [facility] [address] [id number] [address] [place] [address] 14 Jun, 2017 Generalized anxiety disorder F41.1 [facility] [address] [id number] [address] [place] [address] 07 Jun, 2017 Dental examination Z01.20 [facility] [address] [id number] [address] [place] [address] May, [facility] [address] [id number] [address] [place] [id number] May, Dental examination Z01.20 [facility] [address] [id number] [address] [place] [address] [id number] May, Dental examination Z01.20 [facility] [address] [id number] [address] [place] [address] May, Dental examination Z01.20 [facility] [address] [id number] [address] [place] [address] May, [facility] [address] [id number] [address] [place] [address] May, Generalized anxiety disorder F41.1 [facility] [address] [id number] [address] [place] [address] May, Localized edema R60.0 ; Yeas t vaginitis B37.3 and Gastroesophageal reflux disease with esophagitis K21.0 [facility] [address] [id number] [address] [place] [address] [phone] Apr, Dental examination Z01.20 [facility] [address] [id number] [address] [place] [address] Apr, Dental examination Z01.20 [facility] [address] [id number] [address] [place] [phone] 05 Apr, 2017 Dental examination Z01.20 [facility] [address] [id number] [address] [place] [address] Mar, Dyspepsia R10.13 [facility] [address] [id number] [address] [place] [address] Mar, Generalized anxiety disorder F41.1 [facility] [address] [id number] [address] [place] [address] Mar, Encounter for dental examina tion Z01.20 [facility] [address] [id number] [address] [place] [address] [id number] Mar, [facility] [address] [id number] [address] [place] [address] [phone] Mar, Dental examination Z01.20 [facility] [address] [id number] [address] [place] [phone] Feb, Hypertension I10 and Tachyca rdia R00.0 [facility] [address] [id number] [place] [address] Feb, [facility] [address] [id number] [address] [place] [phone] Feb, Generalized anxiety disorder F41.1 [facility] [address] [id number] [address] [place] [address] [id number] Feb, Dental examination Z01.20 [facility] [address] [id number] [address] [place] [address] Jan, Generalized anxiety disorder F41.1 [facility] [address] [id number] [address] [place] [address] December, Generalized anxiety disorder F41.1 [facility] [address] [id number] [address] [place] [address] [phone] December, Encounter for dental examina tion Z01.20 [facility] [address] [id number] [address] [place] [address] Nov, [facility] [address] [id number] [address] [place] [address] Nov, [facility] [address] [id number] [address] [place] [address] Nov, Generalized anxiety disorder F41.1 [facility] [address] [id number] [address] [place] [address] Oct, [facility] [address] [facility] [id number] [address] [place] [id number] Oct, Dental examination Z01.20 [facility] [address] [place] [id number] [address] [place] [address] Oct, Vaginal dryness N89.8 [facility] [address] [address] Oct, Pseudoseizures F44.5 [facility] [address] [place] [id number] [place] [address] Oct, Generalized anxiety disorder F41.1 [place] [address] [address] Sep, Abnormal uterine bleeding (A UB) N93.9 ; Vaginal dryness N89.8 and Screening breast examination Z12.39 [place] [address] [address] Sep, Dental examination Z01.20 [facility] [address] [address] Sep, Generalized anxiety disorder F41.1 [place] [address] [place] [id number] [address] [place] [address] 06 Sep, 2016 Unspecified ovarian cyst, ri ght side N83.201 ; Unspecified ovarian cyst, left side N83.202 ; Yeast infection of the vagina B37.3 ; Mitral valve prolapse I34.1 and Hypertension I10 [facility] [address] [place] [id number] [address] [place] [address] Aug, Generalized anxiety disorder F41.1 [facility] [address] [place] [id number] [address] [place] [address] Jul, [place] [address] [address] Jul, Generalized anxiety disorder F41.1 [facility] [address] [place] [address] 15 Jun, 2016 Generalized anxiety disorder F41.1 [facility] [address] [facility] [id number] [address] [place] [phone] 28 May, 2016 Encounter for immunization Z 23 [facility] [address] [facility] [id number] [address] [place] [phone] 17 May, 2016 Generalized anxiety disorder F41.1 and Depressive disorder, not elsewhere classified F32.9 [facility] [address] [facility] [id number] [address] [place] [address] 28 Apr, 2016 Hypertension I10 [facility] [address] [facility] [id number] [address] [place] [address] 22 Apr, 2016 Cervicalgia M54.2 [facility] [address] [facility] [id number] [address] [place] [address] 12 Apr, 2016 Cervicalgia M54.2 [facility] [address] [facility] [id number] [address] [place] [phone] 09 Mar, 2016 Generalized anxiety disorder F41.1 and Depressive disorder, not elsewhere classified F32.9 [facility] [id number] [place] [id number] 14 Feb, 2016 Visit for dental examination Z01.20 [facility] [address] [facility] [id number] [address] [place] [address] 11 Feb, 2016 Pseudoseizures F44.5 ; Migra ine without status migrainosus, not intractable, unspecified migraine type G43.909 and Essential hypertension I10 [facility] [address] [id number] [address] [place] [address] [id number] 06 Feb, 2016 Dental examination Z01.20 [facility] [address] [facility] [id number] [address] [place] [phone] 05 Feb, 2016 Generalized anxiety disorder F41.1 and Depressive disorder, not elsewhere classified F32.9 [facility] [address] [facility] [id number] [address] [place] [address] Jan, Tachycardia R00.0 [facility] [address] [facility] [id number] [address] [place] [phone] December, Eustachian tube dysfunction, bilateral H69.83 [facility] [address] [facility] [id number] [address] [place] [phone] December, Generalized anxiety disorder F41.1 and Depressive disorder, not elsewhere classified F32.9 [facility] [address] [facility] [id number] [address] [place] [phone] Nov, [place] [address] [facility] [id number] [address] [place] [address] Nov, [place] [address] [place] [id number] [address] [place] [address] Nov, Hypertension I10 ; Onychomyc osis B35.1 [...] and Complex cyst of left ovary N83.29 [place] [address] [place] [id number] [address] [place] [address] Nov, Sinusitis J32.9 [facility] [address] [facility] [id number] [address] [place] [phone] Oct, Complex cyst of left ovary N 83.29 [facility] [address] [facility] [id number] [address] [place] [phone] Oct, Onychomycosis B35.1 [facility] [address] [facility] [id number] [address] [place] [address] [id number] Oct, Dental examination Z01.20 [facility] [address] [facility] [id number] [address] [place] [address] 09 Mar, 2016 Well woman exam Z01.419 ; En [...] History of colon polyps Z86.010 [place] [address] [facility] [id number] [address] [place] [phone] 03 Oct, 2015 Generalized anxiety disorder F41.1 and Depressive disorder, not elsewhere classified F32.9 [place] [address] [facility] [id number] [address] [place] [phone] 22 Sep, 2015 Hypertension I10 and Onychom ycosis B35.1 [place] [address] [facility] [id number] [address] [place] [phone] 16 Sep, 2015 Skin tags, multiple acquired L91.8 [place] [address] [facility] [id number] [address] [place] [address] Aug, [place] [address] [facility] [id number] [address] [place] [phone] Aug, [place] [address] [facility] [id number] [address] [place] [phone] Aug, [place] [address] [facility] [id number] [address] [place] [phone] Aug, Generalized anxiety disorder F41.1 and Depressive disorder, not elsewhere classified F32.9 [place] [address] [facility] [id number] [address] [place] [phone] Jul, Skin lesion L98.9 [place] [address] [address] [facility] [id number] [address] [place] [phone] Jun, Generalized anxiety disorder F41.1 and Depressive disorder, not elsewhere classified F32.9 [facility] [address] [id number] [address] [place] [phone] Jun, [facility] [address] [id number] [address] [place] [phone] Jun, Generalized anxiety disorder F41.1 [facility] [address] [id number] [address] [place] [phone] May, Encounter for immunization Z 23 and Right shoulder pain M25.511 [facility] [address] [id number] [address] [place] [id number] Apr, [facility] [address] [id number] [address] [place] [phone] Apr, Generalized anxiety disorder 300.02 and Depressive disorder, not elsewhere classified 311 [facility] [address] [id number] [address] [place] [id number] Mar, Dental examination V72.2 [facility] [address] [id number] [address] [place] [phone] Mar, Generalized anxiety disorder 300.02 and Depressive disorder, not elsewhere classified 311 [facility] [address] [id number] [address] [place] [phone] Mar, Depression, major, recurrent , 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.35 and 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 [facility] [address] [id number] [address] [place] [phone] Feb, Generalized anxiety disorder 300.02 and Depressive disorder, not elsewhere classified 311 [facility] [address] [id number] [address] [place] [id number] Feb, Dental examination V72.2 [facility] [address] [id number] [address] [place] [phone] Jan, Generalized anxiety disorder 300.02 and Depressive disorder, not elsewhere classified 311 [facility] [address] [id number] [address] [place] [phone] Jan, [facility] [address] [id number] [address] [place] [phone] December, Generalized anxiety disorder 300.02 and Depressive disorder, not elsewhere classified 311 [facility] [address] [id number] [address] [place] [phone] 08 Dec, 2014 Major depressive disorder, r ecurrent, unspecified 296.30 and Panic disorder with agoraphobia 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 [facility] [address] [id number] [address] [place] [phone] 14 Nov, 2014 [facility] [address] [id number] [address] [place] [phone] Nov, [facility] [address] [id number] [address] [place] [address] [address] Oct, [facility] [address] [facility] [id number] [address] [place] [address] Oct, [facility] [address] [facility] [id number] [address] [place] [address] Oct, [facility] [address] [facility] [id number] [address] [place] [address] Oct, [facility] [address] [facility] [id number] [address] [place] [address] Sep, [facility] [address] [id number] [address] [place] [address] Sep, [facility] [address] [facility] [id number] [address] [place] [address] Sep, [facility] [address] [id number] [address] [place] [address] Sep, [facility] [address] [facility] [id number] [address] [place] [address] Sep, [facility] [address] [facility] [id number] [address] [place] [address] Sep, [facility] [address] [id number] [address] [place] [address], [place] [address] Sep, 2014 [facility] [address] [id number] [address] [place] [address], [place] [address] Sep, 2014 [facility] [address] [id number] [address] [place] [address], [place] [address] Sep, 2014 [facility] [address] [id number] [address] [place] [address], [place] [address] Sep, 2014 [facility] [address] [id number] [address] [place] [address], [place] [address] Aug, [facility] [address] [id number] [address] [place] [address], [place] [address] Aug, [facility] [address] [id number] [address] [place] [address], [place] [address] Jul, [facility] [address] [id number] [address] [place] [address], [place] [address] Jul, [facility] [address] [id number] [address] [place] [address], [place] [address] Jul, [facility] [address] [id number] [address] [place] [address], [place] [address] Jul, [facility] [address] [id number] [address] [place] [address], [place] [address] Jul, [facility] [address] [id number] [address] [place] [address], [place] [address] Jul, [facility] [address] [id number] [address] [place] [address], [place] [address] 05 Jul, 2014 [facility] [address] [id number] [address] [place] [address], [place] [address] 05 Jul, 2014 [facility] [address] [id number] [address] [place] [address], [place] [address] 04 Jul, 2014 [facility] [address] [id number] [address] [place] [address], [place] [address] Jul, [facility] [address] [id number] [address] [place] [address], [place] [address] Jul, [facility] [address] [id number] [address] [place] [address], [place] [address] Jul, [facility] [address] [id number] [address] [place] [address], [place] [address] Jun, [facility] [address] [id number] [address] [place] [address], [place] [address] Jun, [facility] [address] [id number] [address] [place] [address], [place] [address] May, [facility] [address] [id number] [address] [place] [address], [place] [address] May, [facility] [address] [id number] [address] [place] [address], [place] [address] May, [facility] [address] [id number] [address] [place] [address], [place] [address] May, [facility] [address] [id number] [address] [place] [address], [place] [address] May, [facility] [address] [id number] [address] [place] [address] May, [facility] [address] [id number] [address] [place] [address] May, [facility] [address] [id number] [address] [place] [address] May, [facility] [address] [id number] [address] [place] [address], [place] [address] May, [facility] [address] [id number] [address] [place] [address] May, [facility] [address] [id number] [address] [place] [address] May, [facility] [address] [id number] [address] [place] [address], [place] [address] May, [facility] [address] [id number] [address] [place] [address], [place] [address] 30 Apr, 2014 [facility] [address] [id number] [address] [place] [address], [place] [address] 30 Apr, 2014 [facility] [address] [id number] [address] [place] [address], [place] [address] Apr, [facility] [address] [id number] [address] [place] [address], [place] [address] Apr, [facility] [address] [id number] [address] [place] [address], [place] [address] Apr, [facility] [address] [id number] [address] [place] [address], [place] [address] Apr, [facility] [address] [id number] [address] [place] [address], [place] [address] Feb, [facility] [address] [id number] [address] [place] [address], [place] [address] Feb, [facility] [address] [id number] [address] [place] [address], [place] [address] Feb, [facility] [address] [id number] [address] [place] [address], [place] [address] Feb, [facility] [address] [id number] [address] [place] [address], [place] [address] Feb, [facility] [address] [id number] [address] [place] [address], [place] [address] Feb, [facility] [address] [id number] [address] [place] [address], [place] [address] Jan, [facility] [address] [id number] [address] [place] [address], [place] [address] Jan, [facility] [address] [id number] [address] [place] [address], [place] [address] Jan, [facility] [address] [id number] [facility] [place] [address] Jan, [facility] [address] [id number] [facility] [place] [address] Jan, [facility] [address] [id number] [facility] [place] [address] Jan, [facility] [address] [id number] [address] [place] [address], [place] [address] Jan, [facility] [address] [id number] [address] [place] [address], [place] [address] Jan, [facility] [address] [id number] [address] [place] [address], [place] [address] December, [facility] [address] [id number] [address] [place] [address], [place] [address] December, [facility] [address] [id number] [address] [place] [address], [place] [address] December, [facility] [address] [id number] [address] [place] [address], [place] [address] December, [facility] [address] [id number] [address] [place] [address], [place] [address] Nov, [facility] [address] [id number] [address] [place] [address], [place] [address] Nov, [facility] [address] [id number] [address] [place] [address], [place] [address] Nov, [facility] [address] [id number] [address] [place] [address], [place] [address] Nov, [facility] [address] [id number] [address] [place] [address], [place] [address] Nov, [facility] [address] [id number] [address] [place] [address], [place] [address] Nov, [facility] [address] [id number] [address] [address] Nov, [facility] [address] [id number] [address] [place] [address], [place] [address] Nov, [facility] [address] [id number] [address] [place] [address], [place] [address] Oct, [facility] [address] [id number] [address] [place] [address], [place] [address] Oct, [facility] [address] [id number] [address] [place] [address] Sep, [facility] [address] [id number] [address] [place] [address], [place] [address] Sep, [facility] [address] [id number] [address] [place] [id number] Sep, [facility] [address] [id number] [address] [place] [address], [place] [address] Sep, [facility] [address] [id number] [address] [place] [address], [place] [address] Sep, [facility] [address] [id number] [address] [place] [address], [place] [address] Sep, [facility] [address] [id number] [address] [place] [address], [place] [address] Aug, [facility] [address] [id number] [address] [place] [address], [place] [address] Aug, [facility] [address] [id number] [address] [place] [address] Aug, [facility] [address] [id number] [address] [place] [address], [place] [address] Aug, [facility] [address] [id number] [address] [place] [address], [place] [address] Jul, [facility] [address] [id number] [address] [place] [address], [place] [address] Jul, [facility] [address] [id number] [address] [place] [address], [place] [address] Jul, [facility] [address] [id number] [address] [place] [address], [place] [address] Jul, [facility] [address] [id number] [address] [place] [address], [place] [address] Jun, [facility] [address] [id number] [address] [place] [address], [place] [address] Jun, [facility] [address] [id number] [address] [place] [address], [place] [address] May, [facility] [address] [id number] [address] [place] [address], [place] [address] May, [facility] [address] [id number] [address] [place] [address], [place] [address] May, [facility] [address] [id number] [address] [place] [address], [place] [address] May, [facility] [address] [id number] [address] [place] [address], [place] [address] May, [facility] [address] [id number] [address] [place] [address], [place] [address] 17 Apr, 2013 [facility] [address] [id number] [address] [place] [address], [place] [address] Apr, [facility] [address] [id number] [address] [place] [address], [place] [address] Mar, [facility] [address] [id number] [address] [place] [address], [place] [address] Mar, [facility] [address] [id number] [address] [place] [address], [place] [address] 15 Mar, 2013 [facility] [address] [id number] [address] [place] [address], [place] [address] Mar, [facility] [address] [id number] [address] [place] [address], [place] [address] 17 Feb, 2013 [facility] [address] [id number] [address] [place] [address], [place] [address] 17 Feb, 2013 [facility] [address] [id number] [address] [place] [address], [place] [address] Feb, [facility] [address] [id number] [address] [place] [address], [place] [address] Feb, [facility] [address] [id number] [address] [place] [address], [place] [address] Feb, [facility] [address] [id number] [address] [place] [address], [place] [address] Jan, [facility] [address] [id number] [address] [place] [address], [place] [address] Jan, [facility] [address] [id number] [address] [place] [address], [place] [address] Jan, [facility] [address] [id number] [address] [place] [address], [place] [address] Jan, [facility] [address] [id number] [address] [place] [address], [place] [address] Jan, [facility] [address] [id number] [address] [place] [address], [place] [address] December, [facility] [address] [id number] [address] [place] [address], [place] [address] December, [facility] [address] [id number] [address] [place] [address], [place] [address] Nov, [facility] [address] [id number] [address] [place] [address], [place] [address] Nov, [facility] [address] [id number] [address] [place] [address], [place] [address] Oct, [facility] [address] [id number] [address] [place] [address], [place] [address] Oct, [facility] [address] [id number] [address] [place] [address], [place] [address] 05 Oct, 2012 [facility] [address] [id number] [address] [place] [address], [place] [address] 14 Sep, 2012 [facility] [address] [id number] [address] [place] [address], [place] [address] Aug, [facility] [address] [id number] [address] [place] [address], [place] [address] 16 Aug, 2012 [facility] [address] [id number] [address] [place] [address], [place] [address] Aug, [facility] [address] [id number] [address] [place] [address], [place] [address] Aug, [facility] [address] [id number] [address] [place] [address], [place] [address] Jul, [facility] [address] [id number] [address] [place] [address], [place] [address] Jul, [facility] [address] [id number] [address] [place] [address], [place] [address] Jul, [facility] [address] [id number] [address] [place] [address], [place] [address] Jul, [facility] [address] [id number] [address] [place] [address], [place] [address] Jul, [facility] [address] [id number] [address] [place] [address], [place] [address] Jul, [facility] [address] [id number] [address] [place] [address], [place] [address] Jul, [facility] [address] [id number] [address] [place] [address], [place] [address] Jul, [facility] [address] [id number] [address] [place] [address], [place] [address] Jun, [facility] [address] [id number] [address] [place] [address], [place] [address] Jun, [facility] [address] [id number] [address] [place] [address], [place] [address] Jun, [facility] [address] [id number] [address] [place] [address], [place] [address] Jun, [facility] [address] [id number] [address] [place] [address], [place] [address] Jun, [facility] [address] [id number] [address] [place] [address], [place] [address] Jun, [facility] [address] [id number] [address] [place] [address], [place] [address] May, [facility] [address] [id number] [address] [place] [address], [place] [address] May, [facility] [address] [id number] [address] [place] [address], [place] [address] May, [facility] [address] [id number] [address] [place] [address], [place] [address] May, [facility] [address] [id number] [address] [place] [address], [place] [address] Apr, [facility] [address] [id number] [address] [place] [address], [place] [address] Apr, [facility] [address] [id number] [address] [place] [address], [place] [address] Mar, [facility] [address] [id number] [address] [place] [address], [place] [address] Jan, [facility] [address] [id number] [address] [place] [address], [place] [address] Jan, [facility] [address] [id number] [address] [place] [address], [place] [address] 16 Jan, 2012 [facility] [address] [id number] [address] [place] [address], [place] [address] 15 Jan, 2012 [facility] [address] [id number] [address] [place] [address], [place] [address] 14 Jan, 2012 [facility] [address] [id number] [address] [place] [address], [place] [address] 14 Jan, 2012 [facility] [address] [id number] [address] [place] [address], [place] [address] 07 Jan, 2012 [facility] [address] [id number] [address] [place] [address], [place] [address] December, [facility] [address] [id number] [address] [place] [address], [place] [address] December, [facility] [address] [id number] [address] [place] [address], [place] [address] December, [facility] [address] [id number] [address] [place] [address], [place] [address] December, [facility] [address] [id number] [address] [place] [address], [place] [address] Nov, [facility] [address] [id number] [address] [place] [address], [place] [address] Nov, [facility] [address] [id number] [address] [place] [address], [place] [address] Oct, [facility] [address] [id number] [address] [place] [address], [place] [address] Oct, [facility] [address] [id number] [address] [place] [address], [place] [address] Oct, [facility] [address] [id number] [address] [place] [address], [place] [address] Sep, [facility] [address] [id number] [address] [place] [address], [place] [address] Sep, [facility] [address] [id number] [address] [place] [address], [place] [address] Sep, [facility] [address] [id number] [address] [place] [address], [place] [address] Aug, [facility] [address] [id number] [address] [place] [address], [place] [address] Aug, [facility] [address] [id number] [address] [place] [address], [place] [address] Aug, [facility] [address] [id number] [address] [place] [address], [place] [address] Aug, [facility] [address] [id number] [address] [place] [address], [place] [address] Aug, [facility] [address] [id number] [address] [place] [address], [place] [address] Aug, [facility] [address] [id number] [address] [place] [address], [place] [address] Aug, [facility] [address] [id number] [address] [place] [address], [place] [address] Jul, [facility] [address] [id number] [address] [place] [address], [place] [address] Jul, [facility] [address] [id number] [address] [place] [address], [place] [address] 30 Jun, 2011 [facility] [address] [id number] [address] [place] [address], [place] [address] 28 Jun, 2011 [facility] [address] [id number] [address] [place] [address], [place] [address] 17 Jun, 2011 [facility] [address] [id number] [address] [place] [address], [place] [address] 15 Jun, 2011 [facility] [address] [id number] [address] [place] [address], [place] [address] 14 Jun, 2011 [facility] [address] [id number] [address] [place] [address], [place] [address] 14 Jun, 2011 [facility] [address] [id number] [address] [place] [address], [place] [address] 07 Jun, 2011 [facility] [address] [id number] [address] [place] [address] [address] Jun, [facility] [address] [id number] [address] [place] [address], [place] [address] Jun, [facility] [address] [id number] [address] [place] [address], [place] [address] Jun, [facility] [address] [id number] [address] [place] [address], [place] [address] May, [facility] [address] [id number] [address] [place] [address], [place] [address] May, [facility] [address] [id number] [address] [place] [address], [place] [address] May, [facility] [address] [id number] [address] [place] [address], [place] [address] May, [facility] [address] [id number] [address] [place] [address], [place] [address] May, [facility] [address] [id number] [address] [place] [address], [place] [address] May, [facility] [address] [id number] [address] [place] [address], [place] [address] Feb, [facility] [address] [id number] [address] [place] [address], [place] [address] December, [facility] [address] [id number] [address] [place] [address], [place] [address] Jul, [facility] [address] [id number] [address] [place] [address], [place] [address] Jul, [facility] [address] [id number] [address] [place] [address], [place] [address] Jul, [facility] [address] [id number] [address] [place] [address], [place] [address] Jul, [facility] [address] [id number] [address] [place] [address], [place] [address] 15 Jun, 2010 [facility] [address] [id number] [address] [place] [address] 31 Jul, 2009 [facility] [address] [id number] [address] [place] [address] Jul, [facility] [address] [id number] [address] [place] [address] Jul, [facility] [address] [id number] [address] [place] [address] Jul, [facility] [address] [id number] [address] [place] [address] Jul, [facility] [address] [facility] [id number] [address] [place] [address] Jul, [facility] [address] [facility] [id number] [address] [place] [id number] 15 Jan, 2009 [facility] [address] [facility] [id number] [address] [place] [id number] 16 Sep, 2008 [facility] [address] [facility] [id number] [address] [place] [address] 11 Sep, 2008 IMMUNIZATIONS No Known Immunizations [...]
--- OUTSIDE RECORDS SUMMARY | 2020-01-27 10:33 | XMS REPORT ---
Author Author Silvia Anthony Organization [facility] Address [address] [place] [address] Care Team Providers Care Writer Name Role Phone ROBERT Anthony Unavailable PROBLEMS Type Condition ICD9-CM Code [id number] Code Onset Dates Condition S tatus SNOMED Code Problem Hypertension I10 Active 1448653 3 Problem Generalized anxiety disorder F41.1 A ctive 974820928 Problem History of colon polyps Z86.010 Active 724890595 Problem History of diverticulitis Z87.19 Acti ve [id number] Problem Family history of diabetes mellitus Z83.3 Active 489169855 Problem Excessive and frequent menstruation with irregular cycle N92.1 Active 150426188 Problem Hot flashes N95.1 Active 23237445 8 Problem Gastroesophageal reflux disease with esophagitis K 21.0 Active 368906545 Problem History of ovarian cyst Z87.42 Active 20129098 Problem Diverticulitis K57.92 Active 26455 6006 Problem Dense breast tissue R92.2 Active 897230030 Problem Perimenopausal N95.1 Active 02010 5364267696 Problem Mitral valve prolapse I34.1 Active 758759695 Problem Abnormal uterine bleeding (AUB) N93.9 Active 98791448811443 Problem Tachycardia R00.0 Active 4022807 ALLERGIES No Information ENCOUNTERS Encounter Location Date Diagnosis [facility] [address] [facility] [id number] [address] [place] [phone] May, [facility] [address] [id number] [address] [place] [address] May, [facility] [address] [facility] [id number] [address] [place] [phone] Apr, [facility] [address] [id number] [address] [place] [address] Mar, Caries K02.9 ; Dental examin ation Z01.20 ; Periodontitis K05.30 and Oral health maintenance status requiring routine preventive dental care K08.9 [facility] [address] [id number] [address] [place] [address] Mar, Generalized anxiety disorder F41.1 [facility] [address] [facility] [id number] [address] [place] [phone] Mar, Gastrointestinal hemorrhage associated with gastroduodenitis K29.91 [facility] [address] [id number] [address] [place] [address] Mar, Generalized anxiety disorder F41.1 and Bereavement Z63.4 [facility] [address] [facility] [id number] [address] [place] [phone] Mar, [facility] [address] [facility] [id number] [address] [place] [address] Mar, [facility] [address] [facility] [id number] [address] [place] [address] Mar, [facility] [address] [facility] [id number] [address] [place] [phone] Mar, Tachycardia R00.0 and Essent ial hypertension I10 [facility] [address] [facility] [id number] [address] [place] [phone] Feb, Generalized anxiety disorder F41.1 [facility] [address] [facility] [id number] [address] [place] [phone] Feb, Generalized anxiety disorder F41.1 and Bereavement Z63.4 [facility] [address] [facility] [id number] [address] [place] [phone] Feb, Generalized anxiety disorder F41.1 [facility] [address] [facility] [id number] [address] [place] [phone] Feb, Generalized anxiety disorder F41.1 and Bereavement Z63.4 [facility] [address] [facility] [id number] [address] [place] [phone] 27 Jan, 2019 [facility] [address] [id number] [address] [place] [address] 20 Jan, 2019 Breast cancer screening by trenton crenshaw Z12.31 [facility] [address] [facility] [id number] [address] [place] [phone] 13 Jan, 2019 Generalized anxiety disorder F41.1 and Bereavement Z63.4 [facility] [address] [facility] [id number] [address] [place] [phone] Jan, [facility] [address] [facility] [id number] [address] [place] [address] December, Generalized anxiety disorder F41.1 and Bereavement Z63.4 [place] [address] [facility] [id number] [address] [place] [address] December, Diverticulitis K57.92 ; Dysu nick R30.0 ; Other constipation K59.09 and Lower abdominal pain R10.30 [facility] [address] [facility] [id number] [address] [place] [address] Nov, Diverticulitis K57.92 [place] [address] [facility] [id number] [address] [place] [phone] Nov, Generalized anxiety disorder F41.1 and Bereavement Z63.4 [facility] [address] [facility] [id number] [address] [place] [address] Nov, Generalized anxiety disorder F41.1 and Bereavement Z63.4 [facility] [address] [facility] [id number] [address] [place] [address] Nov, Diverticulitis K57.92 [facility] [address] [facility] [id number] [address] [place] [address] Oct, Diverticulitis K57.92 [facility] [address] [facility] [id number] [address] [place] [address] Oct, Diverticulitis K57.92 [facility] [address] [facility] [id number] [address] [place] [address] Oct, Generalized anxiety disorder F41.1 [facility] [address] [facility] [id number] [address] [place] [address] Oct, Right lower quadrant abdomin al pain R10.31 and Diverticulitis K57.92 [facility] [address] [facility] [id number] [address] [place] [phone] Sep, Generalized anxiety disorder F41.1 and Bereavement Z63.4 [facility] [address] [facility] [id number] [address] [place] [phone] Aug, [facility] [address] [facility] [id number] [address] [place] [phone] Aug, Generalized anxiety disorder F41.1 and Bereavement Z63.4 [facility] [address] [facility] [id number] [place] [address] Aug, Caries K02.9 [facility] [address] [facility] [id number] [address] [place] [phone] Jul, Generalized anxiety disorder F41.1 and Bereavement Z63.4 [facility] [address] [facility] [id number] [address] [place] [address] Jul, Other acute gastritis withou t hemorrhage K29.00 ; Generalized anxiety disorder F41.1 ; Tachycardia R00.0 and Essential hypertension I10 [facility] [address] [facility] [id number] [address] [place] [phone] Jul, Generalized anxiety disorder F41.1 and Bereavement Z63.4 [facility] [address] [facility] [id number] [address] [place] [address] Jun, Generalized anxiety disorder F41.1 and Bereavement Z63.4 [facility] [address] [facility] [id number] [address] [place] [address] Jun, Generalized anxiety disorder F41.1 and Bereavement Z63.4 [facility] [address] [id number] [address] [address] Jun, Dental examination Z01.20 [facility] [address] [facility] [id number] [address] [place] [phone] May, Generalized anxiety disorder F41.1 and Bereavement Z63.4 [facility] [address] [facility] [id number] [address] [place] [address] May, Encounter for immunization Z 23 [facility] [address] [facility] [id number] [address] [place] [phone] May, Generalized anxiety disorder F41.1 and Bereavement Z63.4 [facility] [address] [facility] [id number] [address] [place] [phone] May, [facility] [address] [facility] [id number] [address] [place] [phone] 24 Apr, 2018 Generalized anxiety disorder F41.1 and Bereavement Z63.4 [facility] [address] [facility] [id number] [address] [place] [phone] 17 Apr, 2018 [facility] [address] [facility] [id number] [address] [place] [phone] 13 Apr, 2018 Diverticulitis K57.92 [facility] [address] [facility] [id number] [address] [place] [address] 10 Apr, 2018 Generalized anxiety disorder F41.1 and Bereavement Z63.4 [facility] [address] [facility] [id number] [address] [place] [phone] Mar, [facility] [address] [facility] [id number] [address] [place] [address] Mar, Diverticulitis K57.92 [facility] [address] [facility] [id number] [address] [place] [address] Mar, Generalized anxiety disorder F41.1 and Bereavement Z63.4 [place] [address] [id number] [address] [place] [address] Mar, Hypertension I10 [facility] [address] [id number] [address] [place] [phone] Mar, Generalized anxiety disorder F41.1 and Bereavement Z63.4 [facility] [address] [id number] [address] [place] [address] Feb, Generalized anxiety disorder F41.1 and Bereavement Z63.4 [facility] [address] [id number] [address] [place] [phone] Feb, [facility] [address] [id number] [address] [place] [phone] Feb, Generalized anxiety disorder F41.1 and Bereavement Z63.4 [facility] [address] [id number] [address] [place] [phone] Feb, Generalized anxiety disorder F41.1 and Bereavement Z63.4 [facility] [address] [id number] [address] [place] [phone] Jan, Hypertension I10 and Acute n on-recurrent maxillary sinusitis J01.00 [facility] [address] [id number] [address] [place] [phone] December, [facility] [address] [id number] [address] [place] [phone] December, Hypertension I10 [facility] [address] [id number] [address] [place] [phone] December, Generalized anxiety disorder F41.1 [facility] [address] [id number] [place] [address] Oct, Encounter for dental examina tion Z01.20 [facility] [address] [id number] [address] [address] 06 Oct, 2017 Encounter for dental examina tion Z01.20 [facility] [address] [id number] [address] [address] 02 Oct, 2017 Dental examination Z01.20 [facility] [address] [id number] [address] [place] [address] Oct, Generalized anxiety disorder F41.1 [facility] [address] [id number] [address] [address] Aug, Dental examination Z01.20 [facility] [address] [id number] [address] [place] [phone] Aug, Generalized anxiety disorder F41.1 [facility] [address] [id number] [address] [place] [address] Aug, [facility] [address] [id number] [address] [address] Aug, Encounter for dental examina tion Z01.20 [facility] [address] [id number] [address] [place] [phone] Aug, Subacute maxillary sinusitis J01.00 [facility] [address] [id number] [address] [place] [address] 22 Jul, 2017 Dental examination Z01.20 [facility] [address] [id number] [address] [place] [address] Jul, Generalized anxiety disorder F41.1 [facility] [address] [id number] [address] [place] [phone] 11 Jul, 2017 Diverticulitis K57.92 [facility] [address] [id number] [address] [place] [phone] 28 Jun, 2017 Encounter for immunization Z 23 [facility] [address] [id number] [address] [address] 22 Jun, 2017 Dental examination Z01.20 [facility] [address] [id number] [address] [place] [phone] Jun, Generalized anxiety disorder F41.1 [facility] [address] [id number] [address] [place] [address] Jun, Dental examination Z01.20 [facility] [address] [id number] [address] [place] [phone] May, [facility] [address] [id number] [address] [place] [id number] May, Dental examination Z01.20 [facility] [address] [id number] [address] [place] [address] [id number] May, Dental examination Z01.20 [facility] [address] [id number] [address] [place] [address] May, Dental examination Z01.20 [facility] [address] [id number] [address] [place] [address] May, [facility] [address] [id number] [address] [place] [address] May, Generalized anxiety disorder F41.1 [facility] [address] [id number] [address] [place] [address] May, Localized edema R60.0 ; Yeas t vaginitis B37.3 and Gastroesophageal reflux disease with esophagitis K21.0 [facility] [address] [id number] [address] [place] [address] [id number] Apr, Dental examination Z01.20 [facility] [address] [id number] [address] [place] [address] Apr, Dental examination Z01.20 [facility] [address] [id number] [address] [place] [phone] Apr, Dental examination Z01.20 [facility] [address] [id number] [address] [place] [address] Mar, Dyspepsia R10.13 [facility] [address] [id number] [address] [place] [address] Mar, Generalized anxiety disorder F41.1 [facility] [address] [id number] [address] [address] Mar, Encounter for dental examina tion Z01.20 [facility] [address] [id number] [address] [place] [address] [id number] Mar, [facility] [address] [id number] [address] [place] [address] [id number] Mar, Dental examination Z01.20 [facility] [address] [id number] [address] [place] [address] Feb, Hypertension I10 and Tachyca rdia R00.0 [facility] [address] [id number] [address] [address] Feb, [facility] [address] [id number] [address] [place] [phone] Feb, Generalized anxiety disorder F41.1 [facility] [address] [id number] [address] [place] [phone] Feb, Dental examination Z01.20 [facility] [address] [id number] [address] [place] [phone] Jan, Generalized anxiety disorder F41.1 [facility] [address] [id number] [address] [place] [address] December, Generalized anxiety disorder F41.1 [facility] [address] [id number] [address] [place] [address] [id number] December, Encounter for dental examina tion Z01.20 [facility] [address] [id number] [address] [place] [address] Nov, [facility] [address] [id number] [address] [place] [phone] Nov, [facility] [address] [id number] [address] [place] [phone] Nov, Generalized anxiety disorder F41.1 [facility] [address] [facility] [id number] [address] [place] [phone] 30 Oct, 2016 [facility] [address] [facility] [id number] [address] [place] [address] [id number] Oct, Dental examination Z01.20 [facility] [address] [place] [id number] [address] [place] [address] Oct, Vaginal dryness N89.8 [facility] [address] [facility] [id number] [address] [place] [address] Oct, Pseudoseizures F44.5 [facility] [address] [place] [id number] [address] [place] [address] Oct, Generalized anxiety disorder F41.1 [facility] [id number] [place] [address] Sep, Abnormal uterine bleeding (A UB) N93.9 ; Vaginal dryness N89.8 and Screening breast examination Z12.39 [facility] [id number] [place] [address] Sep, Dental examination Z01.20 [facility] [address] [place] [id number] [address] [place] [phone] Sep, Generalized anxiety disorder F41.1 [facility] [address] [place] [id number] [address] [place] [phone] 06 Sep, 2016 Unspecified ovarian cyst, ri ght side N83.201 ; Unspecified ovarian cyst, left side N83.202 ; Yeast infection of the vagina B37.3 ; Mitral valve prolapse I34.1 and Hypertension I10 [facility] [address] [place] [id number] [address] [place] [address] Aug, Generalized anxiety disorder F41.1 [facility] [address] [place] [id number] [address] [place] [phone] Jul, [place] [address] [facility] [id number] [address] [place] [phone] Jul, Generalized anxiety disorder F41.1 [facility] [address] [facility] [id number] [address] [place] [phone] 15 Jun, 2016 Generalized anxiety disorder F41.1 [facility] [address] [facility] [id number] [address] [place] [phone] 28 May, 2016 Encounter for immunization Z 23 [facility] [address] [facility] [id number] [address] [place] [phone] 17 May, 2016 Generalized anxiety disorder F41.1 and Depressive disorder, not elsewhere classified F32.9 [facility] [address] [facility] [id number] [address] [place] [phone] 28 Apr, 2016 Hypertension I10 [facility] [address] [facility] [id number] [address] [place] [phone] 22 Apr, 2016 Cervicalgia M54.2 [facility] [address] [facility] [id number] [address] [place] [phone] 12 Apr, 2016 Cervicalgia M54.2 [facility] [address] [facility] [id number] [address] [place] [phone] 09 Mar, 2016 Generalized anxiety disorder F41.1 and Depressive disorder, not elsewhere classified F32.9 [facility] [id number] [place] [address] [id number] 14 Feb, 2016 Visit for dental examination Z01.20 [facility] [address] [facility] [id number] [address] [place] [phone] 11 Feb, 2016 Pseudoseizures F44.5 ; Migra ine without status migrainosus, not intractable, unspecified migraine type G43.909 and Essential hypertension I10 [facility] [address] [place] [id number] [address] [place] [address] [id number] 06 Feb, 2016 Dental examination Z01.20 [facility] [address] [facility] [id number] [address] [place] [phone] 05 Feb, 2016 Generalized anxiety disorder F41.1 and Depressive disorder, not elsewhere classified F32.9 [facility] [address] [facility] [id number] [address] [place] [phone] Jan, Tachycardia R00.0 [facility] [address] [facility] [id number] [address] [place] [phone] December, Eustachian tube dysfunction, bilateral H69.83 [facility] [address] [facility] [id number] [address] [place] [phone] December, Generalized anxiety disorder F41.1 and Depressive disorder, not elsewhere classified F32.9 [facility] [address] [facility] [id number] [address] [place] [phone] Nov, [facility] [address] [facility] [id number] [address] [place] [phone] Nov, [place] [address] [facility] [id number] [address] [place] [phone] Nov, Hypertension I10 ; Onychomyc osis B35.1 [...] and Complex cyst of left ovary N83.29 [facility] [address] [facility] [id number] [address] [place] [phone] 14 Nov, 2015 Sinusitis J32.9 [facility] [address] [facility] [id number] [address] [place] [phone] Oct, Complex cyst of left ovary N 83.29 [facility] [address] [facility] [id number] [address] [place] [phone] Oct, Onychomycosis B35.1 [facility] [address] [id number] [address] [place] [address] [id number] 17 Oct, 2016 Dental examination Z01.20 [place] [address] [place] [id number] [place] [phone] 09 Oct, 2016 Well woman exam Z01.419 [...] R92.2 and History of colon polyps Z86.010 [place] [address] [place] [id number] [address] [place] [phone] Oct, Generalized anxiety disorder F41.1 and Depressive disorder, not elsewhere classified F32.9 [place] [address] [id number] Sep, Hypertension I10 and Onychom ycosis B35.1 [place] [address] [address] 16 Sep, 2015 Skin tags, multiple acquired L91.8 [place] [address] [address] [place] [id number] [address] [place] [id number] Aug, [place] [address] [place] [id number] [address] [place] [address] Aug, [place] [address] [place] [id number] [address] [place] [address] Aug, [place] [address] [place] [id number] [place] [address] Aug, Generalized anxiety disorder F41.1 and Depressive disorder, not elsewhere classified F32.9 [place] [address] [place] [id number] [address] [place] [address] Jul, Skin lesion L98.9 [facility] [address] [id number] [address] [place] [address] Jun, Generalized anxiety disorder F41.1 and Depressive disorder, not elsewhere classified F32.9 [facility] [address] [id number] [address] [place] [address] Jun, [facility] [address] [id number] [address] [place] [address] Jun, Generalized anxiety disorder F41.1 [facility] [address] [id number] [address] [place] [address] May, Encounter for immunization Z 23 and Right shoulder pain M25.511 [facility] [address] [id number] [address] [place] [address] Apr, [facility] [address] [id number] [address] [place] [address] 14 Apr, 2015 Generalized anxiety disorder 300.02 and Depressive disorder, not elsewhere classified 311 [facility] [address] [id number] [address] [place] [id number] Mar, Dental examination V72.2 [facility] [address] [id number] [address] [place] [address] Mar, Generalized anxiety disorder 300.02 and Depressive disorder, not elsewhere classified 311 [facility] [address] [id number] [address] [place] [address] Mar, Depression, major, recurrent , 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.35 and 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 [facility] [address] [id number] [address] [place] [address] Feb, Generalized anxiety disorder 300.02 and Depressive disorder, not elsewhere classified 311 [facility] [address] [id number] [address] [place] [id number] Feb, Dental examination V72.2 [facility] [address] [id number] [address] [place] [address] Jan, Generalized anxiety disorder 300.02 and Depressive disorder, not elsewhere classified 311 [facility] [address] [id number] [address] [place] [address] Jan, [facility] [address] [facility] [id number] [address] [place] [address] December, Generalized anxiety disorder 300.02 and Depressive disorder, not elsewhere classified 311 [facility] [address] [facility] [id number] [address] [place] [address] December, Major depressive disorder, r ecurrent, unspecified 296.30 and Panic disorder with agoraphobia 300.21 [facility] [address] [facility] [id number] [address] [place] [phone] Nov, [facility] [address] [facility] [id number] [address] [place] [phone] Nov, [facility] [address] [facility] [id number] [address] [place] [phone] Oct, [facility] [address] [facility] [id number] [address] [place] [phone] Oct, [facility] [address] [facility] [id number] [address] [place] [phone] Oct, [facility] [address] [facility] [id number] [address] [place] [phone] Oct, [facility] [address] [facility] [id number] [address] [place] [phone] Sep, [facility] [address] [facility] [id number] [address] [place] [phone] Sep, [facility] [address] [facility] [id number] [address] [place] [address] Sep, [facility] [address] [facility] [id number] [address] [place] [phone] Sep, [facility] [address] [facility] [id number] [address] [place] [phone] Sep, 2014 [facility] [address] [id number] [address] [place] [address], [place] [address] Sep, 2014 [facility] [address] [id number] [address] [place] [address], [place] [address] Sep, 2014 [facility] [address] [id number] [address] [place] [address], [place] [address] Sep, 2014 [facility] [address] [id number] [address] [place] [address], [place] [address] Sep, 2014 [facility] [address] [id number] [address] [place] [address], [place] [address] Sep, [facility] [address] [id number] [address] [place] [address], [place] [address] Aug, [facility] [address] [id number] [address] [place] [address], [place] [address] Aug, [facility] [address] [id number] [address] [place] [address], [place] [address] Jul, [facility] [address] [id number] [address] [place] [address], [place] [address] Jul, [facility] [address] [id number] [address] [place] [address], [place] [address] 18 Jul, 2014 [facility] [address] [id number] [address] [place] [address], [place] [address] 18 Jul, 2014 [facility] [address] [id number] [address] [place] [address], [place] [address] Jul, [facility] [address] [id number] [address] [place] [address], [place] [address] Jul, [facility] [address] [id number] [address] [place] [address], [place] [address] 05 Jul, 2014 [facility] [address] [id number] [address] [place] [address], [place] [address] 05 Jul, 2014 [facility] [address] [id number] [address] [place] [address], [place] [address] Jul, [facility] [address] [id number] [address] [place] [address], [place] [address] Jul, [facility] [address] [id number] [address] [place] [address], [place] [address] Jul, [facility] [address] [id number] [address] [place] [address], [place] [address] Jul, [facility] [address] [id number] [address] [place] [address], [place] [address] Jun, [facility] [address] [id number] [address] [place] [address], [place] [address] Jun, [facility] [address] [id number] [address] [place] [address], [place] [address] May, [facility] [address] [id number] [address] [place] [address], [place] [address] May, [facility] [address] [id number] [address] [place] [address], [place] [address] May, [facility] [address] [id number] [address] [place] [address], [place] [address] May, [facility] [address] [id number] [address] [place] [address], [place] [address] May, [facility] [address] [id number] [address] [place] [address], [place] [address] May, [facility] [address] [id number] [address] [place] [address], [place] [address] May, [facility] [address] [id number] [address] [place] [address], [place] [address] May, [facility] [address] [id number] [address] [place] [address], [place] [address] May, [facility] [address] [id number] [address] [place] [address], [place] [address] May, [facility] [address] [id number] [address] [place] [address], [place] [address] May, [facility] [address] [id number] [address] [place] [address], [place] [address] May, [facility] [address] [id number] [address] [place] [address], [place] [address] Apr, [facility] [address] [id number] [address] [place] [address], [place] [address] 30 Apr, 2014 [facility] [address] [id number] [address] [place] [address], [place] [address] Apr, [facility] [address] [id number] [address] [place] [address], [place] [address] Apr, [facility] [address] [id number] [address] [place] [address], [place] [address] Apr, [facility] [address] [id number] [address] [place] [address], [place] [address] Apr, [facility] [address] [id number] [address] [place] [address], [place] [address] Feb, [facility] [address] [id number] [address] [place] [address], [place] [address] Feb, [facility] [address] [id number] [address] [place] [address], [place] [address] Feb, [facility] [address] [id number] [address] [place] [address], [place] [address] Feb, [facility] [address] [id number] [address] [place] [address], [place] [address] Feb, [facility] [address] [id number] [address] [place] [address], [place] [address] Feb, [facility] [address] [id number] [address] [place] [address], [place] [address] Jan, [facility] [address] [id number] [address] [place] [address] Jan, [facility] [address] [id number] [facility] [place] [address] Jan, [facility] [address] [id number] [address] [place] [address], [place] [address] Jan, [facility] [address] [id number] [address] [place] [address], [place] [address] Jan, [facility] [address] [id number] [address] [place] [address], [place] [address] Jan, [facility] [address] [id number] [address] [place] [address], [place] [address] Jan, [facility] [address] [id number] [address] [place] [address], [place] [address] Jan, [facility] [address] [id number] [address] [place] [address], [place] [address] December, [facility] [address] [id number] [address] [place] [address], [place] [address] December, [facility] [address] [id number] [address] [place] [address], [place] [address] December, [facility] [address] [id number] [address] [place] [address], [place] [address] December, [facility] [address] [id number] [address] [place] [address], [place] [address] Nov, [facility] [address] [id number] [address] [place] [address], [place] [address] Nov, [facility] [address] [id number] [address] [place] [address], [place] [address] Nov, [facility] [address] [id number] [address] [place] [address], [place] [address] Nov, [facility] [address] [id number] [address] [place] [address], [place] [address] Nov, [facility] [address] [id number] [address] [place] [address], [place] [address] Nov, [facility] [address] [id number] [address] [place] [address], [place] [address] Nov, [facility] [address] [id number] [address] [place] [address], [place] [address] Nov, [facility] [address] [id number] [address] [place] [address], [place] [address] Oct, [facility] [address] [id number] [address] [place] [address], [place] [address] Oct, [facility] [address] [id number] [address] [place] [address], [place] [address] Sep, [facility] [address] [id number] [address] [place] [address], [place] [address] Sep, [facility] [address] [id number] [address] [place] [address], [place] [id number] Sep, [facility] [address] [id number] [address] [place] [address], [place] [address] Sep, [facility] [address] [id number] [address] [place] [address], [place] [address] Sep, [facility] [address] [id number] [address] [place] [address], [place] [address] Sep, [facility] [address] [id number] [address] [place] [address], [place] [address] Aug, [facility] [address] [id number] [address] [place] [address], [place] [address] Aug, [facility] [address] [id number] [address] [place] [address], [place] [address] Aug, [facility] [address] [id number] [address] [place] [address], [place] [address] Aug, [facility] [address] [id number] [address] [place] [address], [place] [address] Jul, [facility] [address] [id number] [address] [place] [address], [place] [address] Jul, [facility] [address] [id number] [address] [place] [address], [place] [address] Jul, [facility] [address] [id number] [address] [place] [address], [place] [address] Jul, [facility] [address] [id number] [address] [place] [address] Jun, [facility] [address] [id number] [address] [place] [address], [place] [address] Jun, [facility] [address] [id number] [address] [place] [address], [place] [address] May, [facility] [address] [id number] [address] [place] [address], [place] [address] May, [facility] [address] [id number] [address] [place] [address], [place] [address] May, [facility] [address] [id number] [address] [place] [address], [place] [address] May, [facility] [address] [id number] [address] [place] [address], [place] [address] May, [facility] [address] [id number] [address] [place] [address], [place] [address] 17 Apr, 2013 [facility] [address] [id number] [address] [place] [address] 10 Apr, 2013 [facility] [address] [id number] [address] [place] [address], [place] [address] 29 Mar, 2013 [facility] [address] [id number] [address] [place] [address], [place] [address] Mar, [facility] [address] [id number] [address] [place] [address], [place] [address] 15 Mar, 2013 [facility] [address] [id number] [address] [place] [address], [place] [address] Mar, [facility] [address] [id number] [address] [place] [address], [place] [address] Feb, [facility] [address] [id number] [address] [place] [address], [place] [address] Feb, [facility] [address] [id number] [address] [place] [address], [place] [address] Feb, [facility] [address] [id number] [address] [place] [address], [place] [address] Feb, [facility] [address] [id number] [address] [place] [address], [place] [address] Feb, [facility] [address] [id number] [address] [place] [address], [place] [address] Jan, [facility] [address] [id number] [address] [place] [address], [place] [address] Jan, [facility] [address] [id number] [address] [place] [address], [place] [address] Jan, [facility] [address] [id number] [address] [place] [address], [place] [address] Jan, [facility] [address] [id number] [address] [place] [address], [place] [address] Jan, [facility] [address] [id number] [address] [place] [address], [place] [address] December, [facility] [address] [id number] [address] [place] [address], [place] [address] December, [facility] [address] [id number] [address] [place] [address], [place] [address] Nov, [facility] [address] [id number] [address] [place] [address], [place] [address] Nov, [facility] [address] [id number] [address] [place] [address], [place] [address] Oct, [facility] [address] [id number] [address] [place] [address], [place] [address] 13 Oct, 2012 [facility] [address] [id number] [address] [place] [address], [place] [address] 05 Oct, 2012 [facility] [address] [id number] [address] [place] [address], [place] [address] 14 Sep, 2012 [facility] [address] [id number] [address] [place] [address], [place] [address] 24 Aug, 2012 [facility] [address] [id number] [address] [place] [address], [place] [address] 16 Aug, 2012 [facility] [address] [id number] [address] [place] [address], [place] [address] 15 Aug, 2012 [facility] [address] [id number] [address] [place] [address], [place] [address] Aug, [facility] [address] [id number] [address] [place] [address], [place] [address] Jul, [facility] [address] [id number] [address] [place] [address], [place] [address] Jul, [facility] [address] [id number] [address] [place] [address], [place] [address] Jul, [facility] [address] [id number] [address] [place] [address], [place] [address] Jul, [facility] [address] [id number] [address] [place] [address], [place] [address] Jul, [facility] [address] [id number] [address] [place] [address], [place] [address] Jul, [facility] [address] [id number] [address] [place] [address], [place] [address] Jul, [facility] [address] [id number] [address] [place] [address], [place] [address] Jul, [facility] [address] [id number] [address] [place] [address], [place] [address] Jun, [facility] [address] [id number] [address] [place] [address], [place] [address] Jun, [facility] [address] [id number] [address] [place] [address], [place] [address] Jun, [facility] [address] [id number] [address] [place] [address], [place] [address] Jun, [facility] [address] [id number] [address] [place] [address], [place] [address] Jun, [facility] [address] [id number] [address] [place] [address], [place] [address] Jun, [facility] [address] [id number] [address] [place] [address], [place] [address] May, [facility] [address] [id number] [address] [place] [address], [place] [address] May, [facility] [address] [id number] [address] [place] [address], [place] [address] May, [facility] [address] [id number] [address] [place] [address], [place] [address] May, [facility] [address] [id number] [address] [place] [address], [place] [address] Apr, [facility] [address] [id number] [address] [place] [address], [place] [address] Apr, [facility] [address] [id number] [address] [place] [address], [place] [address] Mar, [facility] [address] [id number] [address] [place] [address], [place] [address] Jan, [facility] [address] [id number] [address] [place] [address], [place] [address] Jan, [facility] [address] [id number] [address] [place] [address], [place] [address] 16 Jan, 2012 [facility] [address] [id number] [address] [place] [address], [place] [address] 15 Jan, 2012 [facility] [address] [id number] [address] [place] [address], [place] [address] Jan, [facility] [address] [id number] [address] [place] [address], [place] [address] 14 Jan, 2012 [facility] [address] [id number] [address] [place] [address], [place] [address] Jan, [facility] [address] [id number] [address] [place] [address], [place] [address] December, [facility] [address] [id number] [address] [place] [address], [place] [address] December, [facility] [address] [id number] [address] [place] [address], [place] [address] December, [facility] [address] [id number] [address] [place] [address], [place] [address] December, [facility] [address] [id number] [address] [place] [address], [place] [address] Nov, [facility] [address] [id number] [address] [place] [address], [place] [address] Nov, [facility] [address] [id number] [address] [place] [address], [place] [address] Oct, [facility] [address] [id number] [address] [place] [address], [place] [address] Oct, [facility] [address] [id number] [address] [place] [address], [place] [id number] 15 Oct, 2011 [facility] [address] [id number] [address] [place] [address], [place] [address] Sep, [facility] [address] [id number] [address] [place] [address], [place] [address] Sep, [facility] [address] [id number] [address] [place] [address], [place] [address] Sep, [facility] [address] [id number] [address] [place] [address], [place] [address] Aug, [facility] [address] [id number] [address] [place] [address], [place] [address] Aug, [facility] [address] [id number] [address] [place] [address], [place] [address] Aug, [facility] [address] [id number] [address] [place] [address], [place] [address] Aug, [facility] [address] [id number] [address] [place] [address], [place] [address] Aug, [facility] [address] [id number] [address] [place] [address], [place] [address] Aug, [facility] [address] [id number] [address] [place] [address], [place] [address] Aug, [facility] [address] [id number] [address] [place] [address], [place] [address] Jul, [facility] [address] [id number] [address] [place] [address], [place] [address] Jul, [facility] [address] [id number] [address] [place] [address], [place] [address] Jun, [facility] [address] [id number] [address] [place] [address], [place] [address] 28 Jun, 2011 [facility] [address] [id number] [address] [place] [address], [place] [id number] 17 Jun, 2011 [facility] [address] [id number] [address] [place] [address], [place] [address] 15 Jun, 2011 [facility] [address] [id number] [address] [place] [address], [place] [address] 14 Jun, 2011 [facility] [address] [id number] [address] [place] [address], [place] [id number] 14 Jun, 2011 [facility] [address] [id number] [address] [place] [address], [place] [id number] 07 Jun, 2011 [facility] [address] [id number] [address] [place] [address], [place] [id number] Jun, [facility] [address] [id number] [address] [place] [address], [place] [id number] Jun, [facility] [address] [id number] [address] [place] [address], [place] [id number] Jun, [facility] [address] [id number] [address] [place] [address], [place] [id number] May, [facility] [address] [id number] [address] [place] [address], [place] [id number] May, [facility] [address] [id number] [address] [place] [address], [place] [id number] May, [facility] [address] [id number] [address] [place] [address], [place] [id number] May, [facility] [address] [id number] [address] [place] [address], [place] [id number] May, [facility] [address] [id number] [address] [place] [address], [place] [id number] May, [facility] [address] [id number] [address] [place] [address], [place] [id number] Feb, [facility] [address] [id number] [address] [place] [address], [place] [id number] December, [facility] [address] [id number] [address] [place] [address], [place] [id number] Jul, [facility] [address] [id number] [address] [place] [address], [place] [id number] Jul, [facility] [address] [id number] [address] [place] [address], [place] [id number] Jul, [facility] [address] [id number] [address] [place] [address], [place] [id number] Jul, [facility] [address] [id number] [address] [place] [id number] Jun, [facility] [address] [id number] [address] [place] [id number] Jul, [facility] [address] [id number] [address] [place] [id number] Jul, [facility] [address] [id number] [address] [place] [id number] Jul, [facility] [address] [id number] [address] [place] [id number] Jul, [facility] [address] [id number] [address] [place] [id number] Jul, [facility] [address] [id number] [address] [place] [id number] Jul, [facility] [address] [id number] [address] [place] [phone] Jan, [facility] [address] [id number] [address] [place] [id number] 16 Sep, 2008 [facility] [address] [id number] [address] [place] [id number] Sep, IMMUNIZATIONS No Known Immunizations SOCIAL HISTORY Never Assessed REASON FOR VISIT PLAN OF CARE VITAL SIGNS Height 66 in 2014-06-21 Weight 204.38 lbs 2014-06-21 Temperature 99.6 degrees Fahrenheit 2014-06-21 Heart Rate 80 bpm 2014-06-21 Respiratory Rate 2014-06-21 Blood pressure systolic 126 mmHg 2014-06-21 Blood pressure diastolic 90 mmHg 2014-06-21 MEDICATIONS Unknown Medications RESULTS No Results PROCEDURES [...]
--- OUTSIDE RECORDS SUMMARY | 2020-01-27 10:34 | XMS REPORT ---
Author Author Silvia WILKINS Organization [facility] Address [address] [place] [address] Care Team Providers Care Chief Program Officer Name Role Phone LETTY WILKINS Unavailable PROBLEMS Type Condition ICD9-CM Code [id number] Code Onset Dates Condition S tatus SNOMED Code Problem Hypertension I10 Active 5282708 3 Problem Generalized anxiety disorder F41.1 A ctive 252098645 Problem History of colon polyps Z86.010 Active 616371462 Problem History of diverticulitis Z87.19 Acti ve [id number] Problem Family history of diabetes mellitus Z83.3 Active 805076496 Problem Excessive and frequent menstruation with irregular cycle N92.1 Active 948317545 Problem Hot flashes N95.1 Active 74268303 8 Problem Gastroesophageal reflux disease with esophagitis K 21.0 Active 993822115 Problem History of ovarian cyst Z87.42 Active 32866881 Problem Diverticulitis K57.92 Active 82991 6006 Problem Dense breast tissue R92.2 Active 858985514 Problem Perimenopausal N95.1 Active 75104 0189910011 Problem Mitral valve prolapse I34.1 Active 302353944 Problem Abnormal uterine bleeding (AUB) N93.9 Active 77829591553897 Problem Tachycardia R00.0 Active 0089136 ALLERGIES No Information ENCOUNTERS Encounter Location Date Diagnosis [facility] [address] [facility] [id number] [address] [place] [phone] May, [facility] [address] [id number] [address] [place] [address] May, [facility] [address] [facility] [id number] [address] [place] [address] Apr, [facility] [address] [id number] [address] [place] [address] Mar, Caries K02.9 ; Dental examin ation Z01.20 ; Periodontitis K05.30 and Oral health maintenance status requiring routine preventive dental care K08.9 [facility] [address] [id number] [address] [place] [address] Mar, Generalized anxiety disorder F41.1 [facility] [address] [facility] [id number] [address] [place] [address] Mar, Gastrointestinal hemorrhage associated with gastroduodenitis K29.91 [facility] [address] [id number] [address] [place] [address] Mar, Generalized anxiety disorder F41.1 and Bereavement Z63.4 [facility] [address] [facility] [id number] [address] [place] [address] Mar, [facility] [address] [facility] [id number] [address] [place] [address] Mar, [facility] [address] [facility] [id number] [address] [place] [address] Mar, [facility] [address] [facility] [id number] [address] [place] [phone] Mar, Tachycardia R00.0 and Essent ial hypertension I10 [facility] [address] [facility] [id number] [address] [place] [address] Feb, Generalized anxiety disorder F41.1 [facility] [address] [facility] [id number] [address] [place] [address] Feb, Generalized anxiety disorder F41.1 and Bereavement Z63.4 [facility] [address] [facility] [id number] [address] [place] [address] Feb, Generalized anxiety disorder F41.1 [facility] [address] [facility] [id number] [address] [place] [address] Feb, Generalized anxiety disorder F41.1 and Bereavement Z63.4 [facility] [address] [facility] [id number] [address] [place] [address] 27 Jan, 2019 [facility] [address] [id number] [address] [place] [phone] 20 Jan, 2019 Breast cancer screening by trenton crenshaw Z12.31 [facility] [address] [facility] [id number] [address] [place] [address] 13 Jan, 2019 Generalized anxiety disorder F41.1 and Bereavement Z63.4 [facility] [address] [facility] [id number] [address] [place] [address] Jan, [facility] [address] [facility] [id number] [address] [place] [address] December, Generalized anxiety disorder F41.1 and Bereavement Z63.4 [place] [address] [facility] [id number] [address] [place] [address] December, Diverticulitis K57.92 ; Dysu nick R30.0 ; Other constipation K59.09 and Lower abdominal pain R10.30 [facility] [address] [facility] [id number] [address] [place] [address] Nov, Diverticulitis K57.92 [place] [address] [facility] [id number] [address] [place] [address] Nov, Generalized anxiety disorder F41.1 and Bereavement Z63.4 [facility] [address] [facility] [id number] [address] [place] [address] Nov, Generalized anxiety disorder F41.1 and Bereavement Z63.4 [facility] [address] [facility] [id number] [address] [place] [address] Nov, Diverticulitis K57.92 [facility] [address] [facility] [id number] [address] [place] [address] Oct, Diverticulitis K57.92 [facility] [address] [facility] [id number] [address] [place] [address] Oct, Diverticulitis K57.92 [facility] [address] [facility] [id number] [address] [place] [address] Oct, Generalized anxiety disorder F41.1 [facility] [address] [facility] [id number] [address] [place] [address] Oct, Right lower quadrant abdomin al pain R10.31 and Diverticulitis K57.92 [facility] [address] [facility] [id number] [address] [place] [address] Sep, Generalized anxiety disorder F41.1 and Bereavement Z63.4 [facility] [address] [facility] [id number] [address] [place] [address] Aug, [facility] [address] [facility] [id number] [address] [place] [address] Aug, Generalized anxiety disorder F41.1 and Bereavement Z63.4 [facility] [address] [facility] [id number] [address] [address] Aug, Caries K02.9 [facility] [address] [facility] [id number] [address] [place] [address] Jul, Generalized anxiety disorder F41.1 and Bereavement Z63.4 [facility] [address] [facility] [id number] [address] [place] [address] Jul, Other acute gastritis withou t hemorrhage K29.00 ; Generalized anxiety disorder F41.1 ; Tachycardia R00.0 and Essential hypertension I10 [facility] [address] [facility] [id number] [address] [place] [phone] Jul, Generalized anxiety disorder F41.1 and Bereavement Z63.4 [facility] [address] [facility] [id number] [address] [place] [address] Jun, Generalized anxiety disorder F41.1 and Bereavement Z63.4 [facility] [address] [facility] [id number] [address] [place] [address] Jun, Generalized anxiety disorder F41.1 and Bereavement Z63.4 [facility] [address] [id number] [address] [address] Jun, Dental examination Z01.20 [facility] [address] [facility] [id number] [address] [place] [phone] May, Generalized anxiety disorder F41.1 and Bereavement Z63.4 [facility] [address] [facility] [id number] [address] [place] [address] May, Encounter for immunization Z 23 [facility] [address] [facility] [id number] [address] [place] [address] May, Generalized anxiety disorder F41.1 and Bereavement Z63.4 [facility] [address] [facility] [id number] [address] [place] [address] May, [facility] [address] [facility] [id number] [address] [place] [phone] 24 Apr, 2018 Generalized anxiety disorder F41.1 and Bereavement Z63.4 [facility] [address] [facility] [id number] [address] [place] [address] 17 Apr, 2018 [facility] [address] [facility] [id number] [address] [place] [address] 13 Apr, 2018 Diverticulitis K57.92 [facility] [address] [facility] [id number] [address] [place] [id number] 10 Apr, 2018 Generalized anxiety disorder F41.1 and Bereavement Z63.4 [facility] [address] [facility] [id number] [address] [place] [address] Mar, [facility] [address] [facility] [id number] [address] [place] [address] Mar, Diverticulitis K57.92 [facility] [address] [facility] [id number] [address] [place] [address] Mar, Generalized anxiety disorder F41.1 and Bereavement Z63.4 [place] [address] [id number] [address] [place] [address] Mar, Hypertension I10 [facility] [address] [id number] [address] [place] [address] Mar, Generalized anxiety disorder F41.1 and Bereavement Z63.4 [facility] [address] [id number] [address] [place] [phone] Feb, Generalized anxiety disorder F41.1 and Bereavement Z63.4 [facility] [address] [id number] [address] [place] [address] Feb, [facility] [address] [id number] [address] [place] [phone] Feb, Generalized anxiety disorder F41.1 and Bereavement Z63.4 [facility] [address] [id number] [address] [place] [address] Feb, Generalized anxiety disorder F41.1 and Bereavement Z63.4 [facility] [address] [id number] [address] [place] [address] Jan, Hypertension I10 and Acute n on-recurrent maxillary sinusitis J01.00 [facility] [address] [id number] [address] [place] [address] December, [facility] [address] [id number] [address] [place] [address] December, Hypertension I10 [facility] [address] [id number] [address] [place] [address] December, Generalized anxiety disorder F41.1 [facility] [address] [id number] [address] [address] Oct, Encounter for dental examina tion Z01.20 [facility] [address] [id number] [address] [address] 06 Oct, 2017 Encounter for dental examina tion Z01.20 [facility] [address] [id number] [address] [address] 02 Oct, 2017 Dental examination Z01.20 [facility] [address] [id number] [address] [place] [phone] Oct, Generalized anxiety disorder F41.1 [facility] [address] [id number] [address] [address] Aug, Dental examination Z01.20 [facility] [address] [id number] [address] [place] [address] Aug, Generalized anxiety disorder F41.1 [facility] [address] [id number] [address] [place] [address] Aug, [facility] [address] [id number] [address] [address] Aug, Encounter for dental examina tion Z01.20 [facility] [address] [id number] [address] [place] [address] Aug, Subacute maxillary sinusitis J01.00 [facility] [address] [id number] [address] [place] [address] 22 Jul, 2017 Dental examination Z01.20 [facility] [address] [id number] [address] [place] [address] Jul, Generalized anxiety disorder F41.1 [facility] [address] [id number] [address] [place] [address] 11 Jul, 2017 Diverticulitis K57.92 [facility] [address] [id number] [address] [place] [address] 28 Jun, 2017 Encounter for immunization Z 23 [facility] [address] [id number] [address] [address] 22 Jun, 2017 Dental examination Z01.20 [facility] [address] [id number] [address] [place] [address] Jun, Generalized anxiety disorder F41.1 [facility] [address] [id number] [address] [place] [address] Jun, Dental examination Z01.20 [facility] [address] [id number] [address] [place] [phone] May, [facility] [address] [id number] [address] [place] [id number] May, Dental examination Z01.20 [facility] [address] [id number] [address] [place] [address] [phone] May, Dental examination Z01.20 [facility] [address] [id number] [address] [place] [address] May, Dental examination Z01.20 [facility] [address] [id number] [address] [place] [phone] May, [facility] [address] [id number] [address] [place] [address] May, Generalized anxiety disorder F41.1 [facility] [address] [id number] [address] [place] [address] May, Localized edema R60.0 ; Yeas t vaginitis B37.3 and Gastroesophageal reflux disease with esophagitis K21.0 [facility] [address] [id number] [address] [place] [address] [id number] Apr, Dental examination Z01.20 [facility] [address] [id number] [address] [place] [address] Apr, Dental examination Z01.20 [facility] [address] [id number] [address] [place] [address] Apr, Dental examination Z01.20 [facility] [address] [id number] [address] [place] [address] Mar, Dyspepsia R10.13 [facility] [address] [id number] [address] [place] [address] Mar, Generalized anxiety disorder F41.1 [facility] [address] [id number] [address] [address] Mar, Encounter for dental examina tion Z01.20 [facility] [address] [id number] [address] [place] [address] [id number] Mar, [facility] [address] [id number] [address] [place] [id number] Mar, Dental examination Z01.20 [facility] [address] [id number] [address] [place] [address] Feb, Hypertension I10 and Tachyca rdia R00.0 [facility] [address] [id number] [address] [address] Feb, [facility] [address] [id number] [address] [place] [address] Feb, Generalized anxiety disorder F41.1 [facility] [address] [id number] [address] [place] [address] [id number] Feb, Dental examination Z01.20 [facility] [address] [id number] [address] [place] [address] Jan, Generalized anxiety disorder F41.1 [facility] [address] [id number] [address] [place] [address] December, Generalized anxiety disorder F41.1 [facility] [address] [id number] [address] [place] [address] [id number] December, Encounter for dental examina tion Z01.20 [facility] [address] [id number] [address] [place] [phone] Nov, [facility] [address] [id number] [address] [place] [phone] Nov, [facility] [address] [id number] [address] [place] [address] Nov, Generalized anxiety disorder F41.1 [facility] [address] [facility] [id number] [address] [place] [address] 30 Oct, 2016 [facility] [address] [facility] [id number] [address] [place] [address] [id number] Oct, Dental examination Z01.20 [facility] [address] [place] [id number] [address] [place] [address] Oct, Vaginal dryness N89.8 [facility] [address] [facility] [id number] [address] [place] [address] Oct, Pseudoseizures F44.5 [facility] [address] [place] [id number] [address] [place] [address] Oct, Generalized anxiety disorder F41.1 [facility] [id number] [place] [address] Sep, Abnormal uterine bleeding (A UB) N93.9 ; Vaginal dryness N89.8 and Screening breast examination Z12.39 [facility] [address] [place] [address] Sep, Dental examination Z01.20 [facility] [address] [place] [id number] [address] [place] [address] Sep, Generalized anxiety disorder F41.1 [facility] [address] [place] [id number] [address] [place] [address] 06 Sep, 2016 Unspecified ovarian cyst, ri ght side N83.201 ; Unspecified ovarian cyst, left side N83.202 ; Yeast infection of the vagina B37.3 ; Mitral valve prolapse I34.1 and Hypertension I10 [facility] [address] [place] [id number] [address] [place] [address] Aug, Generalized anxiety disorder F41.1 [facility] [address] [place] [id number] [address] [place] [address] Jul, [place] [address] [facility] [id number] [address] [place] [address] Jul, Generalized anxiety disorder F41.1 [facility] [address] [facility] [id number] [address] [place] [phone] 15 Jun, 2016 Generalized anxiety disorder F41.1 [facility] [address] [facility] [id number] [address] [place] [phone] 28 May, 2016 Encounter for immunization Z 23 [facility] [address] [facility] [id number] [address] [place] [phone] 17 May, 2016 Generalized anxiety disorder F41.1 and Depressive disorder, not elsewhere classified F32.9 [facility] [address] [facility] [id number] [address] [place] [phone] 28 Apr, 2016 Hypertension I10 [facility] [address] [facility] [id number] [address] [place] [phone] 22 Apr, 2016 Cervicalgia M54.2 [facility] [address] [facility] [id number] [address] [place] [phone] 12 Apr, 2016 Cervicalgia M54.2 [facility] [address] [facility] [id number] [address] [place] [phone] 09 Mar, 2016 Generalized anxiety disorder F41.1 and Depressive disorder, not elsewhere classified F32.9 [facility] [id number] [place] [address] [id number] 14 Feb, 2016 Visit for dental examination Z01.20 [facility] [address] [facility] [id number] [address] [place] [address] 11 Feb, 2016 Pseudoseizures F44.5 ; Migra ine without status migrainosus, not intractable, unspecified migraine type G43.909 and Essential hypertension I10 [facility] [address] [place] [id number] [address] [place] [address] [id number] 06 Feb, 2016 Dental examination Z01.20 [facility] [address] [facility] [id number] [address] [place] [phone] 05 Feb, 2016 Generalized anxiety disorder F41.1 and Depressive disorder, not elsewhere classified F32.9 [facility] [address] [facility] [id number] [address] [place] [phone] Jan, Tachycardia R00.0 [facility] [address] [facility] [id number] [address] [place] [phone] December, Eustachian tube dysfunction, bilateral H69.83 [facility] [address] [facility] [id number] [address] [place] [phone] December, Generalized anxiety disorder F41.1 and Depressive disorder, not elsewhere classified F32.9 [facility] [address] [facility] [id number] [address] [place] [phone] Nov, [facility] [address] [facility] [id number] [address] [place] [phone] Nov, [place] [address] [facility] [id number] [address] [place] [phone] Nov, Hypertension I10 ; Onychomyc osis B35.1 [...] and Complex cyst of left ovary N83.29 [facility] [address] [facility] [id number] [address] [place] [phone] 14 Nov, 2015 Sinusitis J32.9 [facility] [address] [facility] [id number] [address] [place] [address] Oct, Complex cyst of left ovary N 83.29 [facility] [address] [facility] [id number] [address] [place] [phone] Oct, Onychomycosis B35.1 [facility] [address] [id number] [address] [place] [id number] Oct, 2016 Dental examination Z01.20 [place] [address] [place] [id number] [place] [phone] 09 Oct, 2016 Well woman exam Z01.419 [...] History of colon polyps Z86.010 [place] [address] [place] [id number] [address] [place] [phone] Oct, Generalized anxiety disorder F41.1 and Depressive disorder, not elsewhere classified F32.9 [place] [address] [phone] Sep, Hypertension I10 and Onychom ycosis B35.1 [place] [address] [id number] 16 Sep, 2015 Skin tags, multiple acquired L91.8 [place] [address] [place] [id number] [address] [place] [phone] Aug, [place] [address] [place] [id number] [address] [place] [phone] Aug, [place] [address] [place] [id number] [address] [place] [phone] Aug, [place] [address] [place] [id number] [place] [phone] Aug, Generalized anxiety disorder F41.1 and Depressive disorder, not elsewhere classified F32.9 [place] [address] [place] [id number] [address] [place] [phone] Jul, Skin lesion L98.9 [facility] [address] [id number] [address] [place] [phone] Jun, Generalized anxiety disorder F41.1 and Depressive disorder, not elsewhere classified F32.9 [facility] [address] [id number] [address] [place] [phone] Jun, [facility] [address] [id number] [address] [place] [id number] Jun, Generalized anxiety disorder F41.1 [facility] [address] [id number] [address] [place] [phone] May, Encounter for immunization Z 23 and Right shoulder pain M25.511 [facility] [address] [id number] [address] [place] [phone] Apr, [facility] [address] [id number] [address] [place] [phone] 14 Apr, 2015 Generalized anxiety disorder 300.02 and Depressive disorder, not elsewhere classified 311 [facility] [address] [id number] [address] [place] [id number] Mar, Dental examination V72.2 [facility] [address] [id number] [address] [place] [address] Mar, Generalized anxiety disorder 300.02 and Depressive disorder, not elsewhere classified 311 [facility] [address] [id number] [address] [place] [address] Mar, Depression, major, recurrent , 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.35 and 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 [facility] [address] [id number] [address] [place] [address] Feb, Generalized anxiety disorder 300.02 and Depressive disorder, not elsewhere classified 311 [facility] [address] [id number] [address] [place] [id number] Feb, Dental examination V72.2 [facility] [address] [id number] [address] [place] [address] Jan, Generalized anxiety disorder 300.02 and Depressive disorder, not elsewhere classified 311 [facility] [address] [id number] [address] [place] [address] Jan, [facility] [address] [facility] [id number] [address] [place] [address] December, Generalized anxiety disorder 300.02 and Depressive disorder, not elsewhere classified 311 [facility] [address] [facility] [id number] [address] [place] [address] December, Major depressive disorder, r ecurrent, unspecified 296.30 and Panic disorder with agoraphobia 300.21 [facility] [address] [facility] [id number] [address] [place] [address] Nov, [facility] [address] [facility] [id number] [address] [place] [address] Nov, [facility] [address] [facility] [id number] [address] [place] [address] Oct, [facility] [address] [facility] [id number] [address] [place] [id number] Oct, [facility] [address] [facility] [id number] [address] [place] [address] Oct, [facility] [address] [facility] [id number] [address] [place] [phone] Oct, [facility] [address] [facility] [id number] [address] [place] [phone] Sep, [facility] [address] [facility] [id number] [address] [place] [address] Sep, [facility] [address] [facility] [id number] [address] [place] [phone] Sep, [facility] [address] [facility] [id number] [address] [place] [address] Sep, [facility] [address] [facility] [id number] [address] [place] [address] Sep, 2014 [facility] [address] [id number] [address] [place] [address], [place] [address] Sep, 2014 [facility] [address] [id number] [address] [place] [address], [place] [address] Sep, 2014 [facility] [address] [id number] [address] [place] [address], [place] [address] Sep, 2014 [facility] [address] [id number] [address] [place] [address], [place] [address] Sep, 2014 [facility] [address] [id number] [address] [place] [address], [place] [address] Sep, [facility] [address] [id number] [address] [place] [address], [place] [address] Aug, [facility] [address] [id number] [address] [place] [address], [place] [address] Aug, [facility] [address] [id number] [address] [place] [address], [place] [address] Jul, [facility] [address] [id number] [address] [place] [address], [place] [address] Jul, [facility] [address] [id number] [address] [place] [address], [place] [address] 18 Jul, 2014 [facility] [address] [id number] [address] [place] [address], [place] [address] 18 Jul, 2014 [facility] [address] [id number] [address] [place] [address], [place] [address] Jul, [facility] [address] [id number] [address] [place] [address], [place] [address] Jul, [facility] [address] [id number] [address] [place] [address], [place] [address] 05 Jul, 2014 [facility] [address] [id number] [address] [place] [address], [place] [address] 05 Jul, 2014 [facility] [address] [id number] [address] [place] [address], [place] [address] Jul, [facility] [address] [id number] [address] [place] [address], [place] [address] Jul, [facility] [address] [id number] [address] [place] [address], [place] [address] Jul, [facility] [address] [id number] [address] [place] [address], [place] [address] Jul, [facility] [address] [id number] [address] [place] [address], [place] [address] Jun, [facility] [address] [id number] [address] [place] [address], [place] [address] Jun, [facility] [address] [id number] [address] [place] [address], [place] [address] May, [facility] [address] [id number] [address] [place] [address], [place] [address] May, [facility] [address] [id number] [address] [place] [address], [place] [address] May, [facility] [address] [id number] [address] [place] [address], [place] [address] May, [facility] [address] [id number] [address] [place] [address], [place] [address] May, [facility] [address] [id number] [address] [place] [address], [place] [address] May, [facility] [address] [id number] [address] [place] [address], [place] [address] May, [facility] [address] [id number] [address] [place] [address], [place] [address] May, [facility] [address] [id number] [address] [place] [address], [place] [address] May, [facility] [address] [id number] [address] [place] [address], [place] [address] May, [facility] [address] [id number] [address] [place] [address], [place] [address] May, [facility] [address] [id number] [address] [place] [address], [place] [address] May, [facility] [address] [id number] [address] [place] [address], [place] [address] Apr, [facility] [address] [id number] [address] [place] [address], [place] [address] 30 Apr, 2014 [facility] [address] [id number] [address] [place] [address], [place] [address] Apr, [facility] [address] [id number] [address] [place] [address], [place] [address] Apr, [facility] [address] [id number] [address] [place] [address], [place] [address] Apr, [facility] [address] [id number] [address] [place] [address], [place] [address] Apr, [facility] [address] [id number] [address] [place] [address], [place] [address] Feb, [facility] [address] [id number] [address] [place] [address], [place] [address] Feb, [facility] [address] [id number] [address] [place] [address], [place] [address] Feb, [facility] [address] [id number] [address] [place] [address], [place] [address] Feb, [facility] [address] [id number] [address] [place] [address], [place] [address] Feb, [facility] [address] [id number] [address] [place] [address], [place] [address] Feb, [facility] [address] [id number] [address] [place] [address], [place] [address] Jan, [facility] [address] [id number] [address] [place] [address] Jan, [facility] [address] [id number] [facility] [place] [address] Jan, [facility] [address] [id number] [address] [place] [address], [place] [address] Jan, [facility] [address] [id number] [address] [place] [address], [place] [address] Jan, [facility] [address] [id number] [address] [place] [address], [place] [address] Jan, [facility] [address] [id number] [address] [place] [address], [place] [address] Jan, [facility] [address] [id number] [address] [place] [address], [place] [address] Jan, [facility] [address] [id number] [address] [place] [address], [place] [address] December, [facility] [address] [id number] [address] [place] [address], [place] [address] December, [facility] [address] [id number] [address] [place] [address], [place] [address] December, [facility] [address] [id number] [address] [place] [address], [place] [address] December, [facility] [address] [id number] [address] [place] [address], [place] [address] Nov, [facility] [address] [id number] [address] [place] [address], [place] [address] Nov, [facility] [address] [id number] [address] [place] [address], [place] [address] Nov, [facility] [address] [id number] [address] [place] [address], [place] [address] Nov, [facility] [address] [id number] [address] [place] [address], [place] [address] Nov, [facility] [address] [id number] [address] [place] [address], [place] [address] Nov, [facility] [address] [id number] [address] [place] [address], [place] [address] Nov, [facility] [address] [id number] [address] [place] [address], [place] [address] Nov, [facility] [address] [id number] [address] [place] [address], [place] [address] Oct, [facility] [address] [id number] [address] [place] [address], [place] [address] Oct, [facility] [address] [id number] [address] [place] [address], [place] [address] Sep, [facility] [address] [id number] [address] [place] [address], [place] [address] Sep, [facility] [address] [id number] [address] [place] [address], [place] [id number] Sep, [facility] [address] [id number] [address] [place] [address], [place] [address] Sep, [facility] [address] [id number] [address] [place] [address], [place] [address] Sep, [facility] [address] [id number] [address] [place] [address], [place] [address] Sep, [facility] [address] [id number] [address] [place] [address], [place] [address] Aug, [facility] [address] [id number] [address] [place] [address], [place] [address] Aug, [facility] [address] [id number] [address] [place] [address], [place] [address] Aug, [facility] [address] [id number] [address] [place] [address], [place] [address] Aug, [facility] [address] [id number] [address] [place] [address], [place] [address] Jul, [facility] [address] [id number] [address] [place] [address], [place] [address] Jul, [facility] [address] [id number] [address] [place] [address], [place] [address] Jul, [facility] [address] [id number] [address] [place] [address], [place] [address] Jul, [facility] [address] [id number] [address] [place] [address] Jun, [facility] [address] [id number] [address] [place] [address], [place] [address] Jun, [facility] [address] [id number] [address] [place] [address], [place] [address] May, [facility] [address] [id number] [address] [place] [address], [place] [address] May, [facility] [address] [id number] [address] [place] [address], [place] [address] May, [facility] [address] [id number] [address] [place] [address], [place] [address] May, [facility] [address] [id number] [address] [place] [address], [place] [address] May, [facility] [address] [id number] [address] [place] [address], [place] [address] 17 Apr, 2013 [facility] [address] [id number] [address] [place] [address] 10 Apr, 2013 [facility] [address] [id number] [address] [place] [address], [place] [address] 29 Mar, 2013 [facility] [address] [id number] [address] [place] [address], [place] [address] Mar, [facility] [address] [id number] [address] [place] [address], [place] [address] 15 Mar, 2013 [facility] [address] [id number] [address] [place] [address], [place] [address] Mar, [facility] [address] [id number] [address] [place] [address], [place] [address] Feb, [facility] [address] [id number] [address] [place] [address], [place] [address] Feb, [facility] [address] [id number] [address] [place] [address], [place] [address] Feb, [facility] [address] [id number] [address] [place] [address], [place] [address] Feb, [facility] [address] [id number] [address] [place] [address], [place] [address] Feb, [facility] [address] [id number] [address] [place] [address], [place] [address] Jan, [facility] [address] [id number] [address] [place] [address], [place] [address] Jan, [facility] [address] [id number] [address] [place] [address], [place] [address] Jan, [facility] [address] [id number] [address] [place] [address], [place] [address] Jan, [facility] [address] [id number] [address] [place] [address], [place] [address] Jan, [facility] [address] [id number] [address] [place] [address], [place] [address] December, [facility] [address] [id number] [address] [place] [address], [place] [address] December, [facility] [address] [id number] [address] [place] [address], [place] [address] Nov, [facility] [address] [id number] [address] [place] [address], [place] [address] Nov, [facility] [address] [id number] [address] [place] [address], [place] [address] Oct, [facility] [address] [id number] [address] [place] [address], [place] [address] 13 Oct, 2012 [facility] [address] [id number] [address] [place] [address], [place] [address] 05 Oct, 2012 [facility] [address] [id number] [address] [place] [address], [place] [address] 14 Sep, 2012 [facility] [address] [id number] [address] [place] [address], [place] [address] 24 Aug, 2012 [facility] [address] [id number] [address] [place] [address], [place] [address] 16 Aug, 2012 [facility] [address] [id number] [address] [place] [address], [place] [address] 15 Aug, 2012 [facility] [address] [id number] [address] [place] [address], [place] [address] Aug, [facility] [address] [id number] [address] [place] [address], [place] [address] Jul, [facility] [address] [id number] [address] [place] [address], [place] [address] Jul, [facility] [address] [id number] [address] [place] [address], [place] [address] Jul, [facility] [address] [id number] [address] [place] [address], [place] [address] Jul, [facility] [address] [id number] [address] [place] [address], [place] [address] Jul, [facility] [address] [id number] [address] [place] [address], [place] [address] Jul, [facility] [address] [id number] [address] [place] [address], [place] [address] Jul, [facility] [address] [id number] [address] [place] [address], [place] [address] Jul, [facility] [address] [id number] [address] [place] [address], [place] [address] Jun, [facility] [address] [id number] [address] [place] [address], [place] [address] Jun, [facility] [address] [id number] [address] [place] [address], [place] [address] Jun, [facility] [address] [id number] [address] [place] [address], [place] [address] Jun, [facility] [address] [id number] [address] [place] [address], [place] [address] Jun, [facility] [address] [id number] [address] [place] [address], [place] [address] Jun, [facility] [address] [id number] [address] [place] [address], [place] [address] May, [facility] [address] [id number] [address] [place] [address], [place] [address] May, [facility] [address] [id number] [address] [place] [address], [place] [address] May, [facility] [address] [id number] [address] [place] [address], [place] [address] May, [facility] [address] [id number] [address] [place] [address], [place] [address] Apr, [facility] [address] [id number] [address] [place] [address], [place] [address] Apr, [facility] [address] [id number] [address] [place] [address], [place] [address] Mar, [facility] [address] [id number] [address] [place] [address], [place] [address] Jan, [facility] [address] [id number] [address] [place] [address], [place] [address] Jan, [facility] [address] [id number] [address] [place] [address], [place] [address] 16 Jan, 2012 [facility] [address] [id number] [address] [place] [address], [place] [address] 15 Jan, 2012 [facility] [address] [id number] [address] [place] [address], [place] [address] Jan, [facility] [address] [id number] [address] [place] [address], [place] [address] 14 Jan, 2012 [facility] [address] [id number] [address] [place] [address], [place] [address] Jan, [facility] [address] [id number] [address] [place] [address], [place] [address] December, [facility] [address] [id number] [address] [place] [address], [place] [address] December, [facility] [address] [id number] [address] [place] [address], [place] [address] December, [facility] [address] [id number] [address] [place] [address], [place] [address] December, [facility] [address] [id number] [address] [place] [address], [place] [address] Nov, [facility] [address] [id number] [address] [place] [address], [place] [address] Nov, [facility] [address] [id number] [address] [place] [address], [place] [address] Oct, [facility] [address] [id number] [address] [place] [address], [place] [address] Oct, [facility] [address] [id number] [address] [place] [address], [place] [address] 15 Oct, 2011 [facility] [address] [id number] [address] [place] [address], [place] [address] Sep, [facility] [address] [id number] [address] [place] [address], [place] [address] Sep, [facility] [address] [id number] [address] [place] [address], [place] [address] Sep, [facility] [address] [id number] [address] [place] [address], [place] [address] Aug, [facility] [address] [id number] [address] [place] [address], [place] [address] Aug, [facility] [address] [id number] [address] [place] [address], [place] [address] Aug, [facility] [address] [id number] [address] [place] [address], [place] [address] Aug, [facility] [address] [id number] [address] [place] [address], [place] [address] Aug, [facility] [address] [id number] [address] [place] [address], [place] [address] Aug, [facility] [address] [id number] [address] [place] [address], [place] [address] Aug, [facility] [address] [id number] [address] [place] [address], [place] [address] Jul, [facility] [address] [id number] [address] [place] [address], [place] [address] Jul, [facility] [address] [id number] [address] [place] [address], [place] [address] Jun, [facility] [address] [id number] [address] [place] [address], [place] [address] 28 Jun, 2011 [facility] [address] [id number] [address] [place] [address], [place] [address] 17 Jun, 2011 [facility] [address] [id number] [address] [place] [address], [place] [address] 15 Jun, 2011 [facility] [address] [id number] [address] [place] [address], [place] [address] 14 Jun, 2011 [facility] [address] [id number] [address] [place] [address], [place] [address] 14 Jun, 2011 [facility] [address] [id number] [address] [place] [address], [place] [address] 07 Jun, 2011 [facility] [address] [id number] [address] [place] [address], [place] [address] Jun, [facility] [address] [id number] [address] [place] [address], [place] [address] Jun, [facility] [address] [id number] [address] [place] [address], [place] [address] Jun, [facility] [address] [id number] [address] [place] [address], [place] [address] May, [facility] [address] [id number] [address] [place] [address], [place] [address] May, [facility] [address] [id number] [address] [place] [address], [place] [address] May, [facility] [address] [id number] [address] [place] [address], [place] [address] May, [facility] [address] [id number] [address] [place] [address], [place] [address] May, [facility] [address] [id number] [address] [place] [address], [place] [address] May, [facility] [address] [id number] [address] [place] [address], [place] [address] Feb, [facility] [address] [id number] [address] [place] [address], [place] [address] December, [facility] [address] [id number] [address] [place] [address], [place] [address] Jul, [facility] [address] [id number] [address] [place] [address], [place] [address] Jul, [facility] [address] [id number] [address] [place] [address], [place] [address] Jul, [facility] [address] [id number] [address] [place] [address], [place] [address] Jul, [facility] [address] [id number] [address] [place] [id number] Jun, [facility] [address] [id number] [address] [place] [id number] Jul, [facility] [address] [id number] [address] [place] [id number] Jul, [facility] [address] [id number] [address] [place] [id number] Jul, [facility] [address] [id number] [address] [place] [id number] Jul, [facility] [address] [id number] [address] [place] [id number] Jul, [facility] [address] [id number] [address] [place] [phone] Jul, [facility] [address] [id number] [address] [place] [id number] Jan, [facility] [address] [id number] [address] [place] [phone] Sep, [facility] [address] [id number] [address] [place] [phone] Sep, IMMUNIZATIONS No Known Immunizations SOCIAL HISTORY [...]
--- OUTSIDE RECORDS SUMMARY | 2020-01-27 10:37 | XMS REPORT | Continuity of Care Document ---
Demographics Preferred Language Unknown Marital Status Unknown Latter-Day Affiliation Unknown Race Unknown Ethnic Group Unknown Author Organization Unknown Address Unknown Phone Unavailable Allergies Active Description Code Type Severity Reaction Onset Reported/Identified Relationship to Patient Clinical Status Yes codeine [id number] Drug Allergy Unknown N/A 11/22/2007 Yes Sulfa (Sulfonamide Antibiotics) Q41123 0491 Drug Allergy Unknown N/A 008 Yes codeine Drug Allergy N/A N/A 10/10/2008 Yes erythromycin Drug Allergy N/A N/A 10/10/2008 Yes codeine Drug Allergy 10/10/2008 Yes erythromycin Drug Allergy 10/10/2008 Yes sulfa drug Drug Allergy 10/10/2008 Yes Hydrocodone Drug Allergy N/A N/A 10/08/2012 Yes Hydrocodone Drug Allergy 10/08/2012 Yes erythromycin base [id number] Drug Allergy Unknown N/A 12/13/2016 Yes Sulfa (Sulfonamide Antibiotics) [id number] 0491 Drug Allergy Unknown ANAPHYLAXIS 01/22/2019 Yes erythromycin base [id number] Drug Allergy Severe SEVERE ABD PAIN 01/19 Yes Sulfa (Sulfonamide Antibiotics) R11812 0491 Drug Allergy Severe ANAPHYLAXIS 01/20/2020 Yes hydrocodone [id number] Drug Aller gy Mild VOMITING 01/20/2020 Medications There is no data. Problems Date Dx Coded Attending Type Code Diagnosis Diagnosed By 07/24/1438 PATRIA KAMARA MD, Ot H65.20 CHRONIC SEROUS OTITIS MEDIA, UNSPECIFIED 07/24/1438 PATRIA KAMARA MD Ot Z01.812 ENCOUNTER FOR PREPROCEDURAL LABORATORY E 07/24/1438 PATRIA KAMARA MD Ot Z11.59 ENCOUNTER FOR SCREENING FOR OTHER VIRAL 04/22/2008 MUOGHALJaime DDS, WILLARD N 401.1 ESSENTIAL HYPERTENSION BENIGN 04/22/2008 MUOGHALJaime DDS WILLARD N 782.3 Edema 04/22/2008 MUOGHALJaime SHEPARDS, WILLARD N 783.1 [facility] HYPERTENS[facility] B[facility] 782.3 Edema 04/22/2008 [facility], KV[facility] R 783.1 Weight Gain Abnormal 04/22/2008 401.1 ESSE NTIAL HYPERTENSION BENIGN 04/22/2008 782.3 Edema 04/22/2008 783.1 Weig ht Gain Abnormal 04/22/2008 401.1 ESSE NTIAL HYPERTENSION BENIGN 04/22/2008 782.3 Edema 04/22/2008 783.1 Weig ht Gain Abnormal 04/22/2008 [facility], KV[facility] R 401.1 ESSENTIAL HYPERTENSION BENIGN 04/22/2008 [facility], KV[facility] R 782.3 Edema 04/22/2008 [facility], [facility] R 783.1 Weight Gain Abnormal 04/22/2008 401.1 ESSE NTIAL HYPERTENSION BENIGN 04/22/2008 782.3 Edema 04/22/2008 783.1 Weig ht Gain Abnormal 04/22/2008 401.1 ESSE NTIAL HYPERTENSION BENIGN 04/22/2008 782.3 Edema 04/22/2008 783.1 Weig ht Gain Abnormal 04/22/2008 401.1 ESSE NTIAL HYPERTENSION BENIGN 04/22/2008 782.3 Edema 04/22/2008 783.1 Weig ht Gain Abnormal 04/22/2008 401.1 ESSE NTIAL HYPERTENSION BENIGN 04/22/2008 782.3 Edema 04/22/2008 783.1 Weig ht Gain Abnormal 04/22/2008 401.1 ESSE NTIAL HYPERTENSION BENIGN 04/22/2008 782.3 Edema 04/22/2008 783.1 Weig ht Gain Abnormal 04/22/2008 401.1 ESSE NTIAL HYPERTENSION BENIGN 04/22/2008 782.3 Edema 04/22/2008 783.1 Weig ht Gain Abnormal 04/22/2008 401.1 ESSE NTIAL HYPERTENSION BENIGN 04/22/2008 782.3 Edema 04/22/2008 783.1 Weig ht Gain Abnormal 04/22/2008 401.1 ESSE NTIAL HYPERTENSION BENIGN 04/22/2008 782.3 Edema 04/22/2008 783.1 Weig ht Gain Abnormal 04/22/2008 401.1 ESSE NTIAL HYPERTENSION BENIGN 04/22/2008 782.3 Edema 04/22/2008 783.1 Weig ht Gain Abnormal 04/22/2008 [facility], KVNG R 401.1 ESSENTIAL HYPERTENSION BENIGN 04/22/2008 [facility], KV[facility] R 782.3 Edema 04/22/2008 [facility], KV[facility] R 783.1 Weight Gain Abnormal 04/22/2008 [facility], KVNG R 401.1 ESSENTIAL HYPERTENSION BENIGN 04/22/2008 [facility], KV[facility] R 782.3 Edema 04/22/2008 [facility], [facility] R 783.1 Weight Gain Abnormal 04/22/2008 [facility], KV[facility] R 401.1 ESSENTIAL HYPERTENSION BENIGN 04/22/2008 [facility], [facility] R 782.3 Edema 04/22/2008 [facility], [facility] R 783.1 Weight Gain Abnormal 04/22/2008 NATHALIE TORO MD 401.1 ESSENTIAL HYPERTENSION BENIGN 04/22/2008 NATHALIE TORO MD 782.3 Edema 04/22/2008 NATHALIE TORO MD 783.1 Weight Gain Abnormal 04/22/2008 [facility], KV[facility] R 401.1 ESSENTIAL HYPERTENSION BENIGN 04/22/2008 [facility], [facility] R 782.3 Edema 04/22/2008 [facility], [facility] R 783.1 Weight Gain Abnormal 04/22/2008 EDUARDO COBB JR S 401.1 ESSENTIAL HYPERTENSION BENIGN 04/22/2008 EDUARDO COBB JR S 782.3 Edema 04/22/2008 EDUARDO COBB JR S 783.1 Weight Gain Abnormal 04/22/2008 [facility], KVNG R 401.1 ESSENTIAL HYPERTENSION BENIGN 04/22/2008 [facility], [facility] R 782.3 Edema 04/22/2008 [facility], KV[facility] R 783.1 Weight Gain Abnormal 04/22/2008 [facility], KVNG R 401.1 ESSENTIAL HYPERTENSION BENIGN 04/22/2008 [facility], [facility] R 782.3 Edema 04/22/2008 [facility], [facility] R 783.1 Weight Gain Abnormal 04/22/2008 SHEILA WILKINS APRNA S 401.1 ESSENTIAL HYPERTENSION BENIGN 04/22/2008 FRANKY DAY, LETTY S 782.3 Edema 04/22/2008 FRANKY DAY LETTY S 783.1 Weight Gain Abnormal 04/22/2008 NATHALIE TORO MD 401.1 ESSENTIAL HYPERTENSION BENIGN 04/22/2008 NATHALIE TORO MD 782.3 Edema 04/22/2008 NATHALIE TORO MD 783.1 Weight Gain Abnormal 04/22/2008 [facility], KVNG R 401.1 ESSENTIAL HYPERTENSION BENIGN 04/22/2008 [facility], KVNG R 782.3 Edema 04/22/2008 [facility], KV[facility] R 783.1 Weight Gain Abnormal 04/22/2008 NATHALIE TORO MD 401.1 ESSENTIAL HYPERTENSION BENIGN 04/22/2008 NATHALIE TORO MD 782.3 Edema 04/22/2008 NATHALIE TORO MD 783.1 Weight Gain Abnormal 04/22/2008 [facility], KVNG R 401.1 ESSENTIAL HYPERTENSION BENIGN 04/22/2008 [facility], KVNG R 782.3 Edema 04/22/2008 [facility], KVNG R 783.1 Weight Gain Abnormal 04/22/2008 [facility], KVNG R 401.1 ESSENTIAL HYPERTENSION BENIGN 04/22/2008 [facility], KVNG R 782.3 Edema 04/22/2008 [facility], KVNG R 783.1 Weight Gain Abnormal 04/22/2008 [facility], KVNG R 401.1 ESSENTIAL HYPERTENSION BENIGN 04/22/2008 [facility], KV[facility] R 782.3 Edema 04/22/2008 [facility], [facility] R 783.1 Weight Gain Abnormal 04/22/2008 [employer], ROBERT 401 .1 ESSENTIAL HYPERTENSION BENIGN 04/22/2008 [employer], ROBERT 782 .3 Edema 04/22/2008 [employer]IST, ROBERT 783 .1 Weight Gain Abnormal 04/22/2008 [employer], ROBERT 401 .1 ESSENTIAL HYPERTENSION BENIGN 04/22/2008 [employer]IST, ROBERT 782 .3 Edema 04/22/2008 [employer]IST, ROBERT 783 .1 Weight Gain Abnormal 04/22/2008 [employer]Y [employer]IST, LETTY S 401.1 ESSENTIAL HYPERTENSION BENIGN 04/22/2008 [employer], LETTY S 782.3 Edema 04/22/2008 [employer]IST, LETTY S 783.1 Weight Gain Abnormal 04/22/2008 [facility], KVNG R 401.1 ESSENTIAL HYPERTENSION BENIGN 04/22/2008 [facility], KVNG R 782.3 Edema 04/22/2008 [facility], KVNG R 783.1 Weight Gain Abnormal 04/22/2008 [facility], KVNG R 401.1 ESSENTIAL HYPERTENSION BENIGN 04/22/2008 [facility], KVNG R 782.3 Edema 04/22/2008 [facility], [facility] R 783.1 Weight Gain Abnormal 04/22/2008 [employer]IST, ROBERT 401 .1 ESSENTIAL HYPERTENSION BENIGN 04/22/2008 [employer]IST, ROBERT 782 .3 Edema 04/22/2008 [employer]IST, ROBERT 783 .1 Weight Gain Abnormal 04/22/2008 [facility], KVNG R 401.1 ESSENTIAL HYPERTENSION BENIGN 04/22/2008 [facility], KVNG R 782.3 Edema 04/22/2008 [facility], [facility] R 783.1 Weight Gain Abnormal 04/22/2008 [employer]IST, LETTY S 401.1 ESSENTIAL HYPERTENSION BENIGN 04/22/2008 [employer]IST, LETTY S 782.3 Edema 04/22/2008 [employer], LETTY S 783.1 Weight Gain Abnormal 04/22/2008 [facility], KVNG R 401.1 ESSENTIAL HYPERTENSION BENIGN 04/22/2008 [facility], KVNG R 782.3 Edema 04/22/2008 [facility], KVNG R 783.1 Weight Gain Abnormal 04/22/2008 [facility], KVNG R 401.1 ESSENTIAL HYPERTENSION BENIGN 04/22/2008 [facility], KVNG R 782.3 Edema 04/22/2008 [facility], KVNG R 783.1 Weight Gain Abnormal 04/22/2008 [facility], KVNG R 401.1 ESSENTIAL HYPERTENSION BENIGN 04/22/2008 [facility], KV[facility] R 782.3 Edema 04/22/2008 [facility], [facility] R 783.1 Weight Gain Abnormal 04/22/2008 MUOGHALU DDS, WILLARD N 401.1 ESSENTIAL HYPERTENSION BENIGN 04/22/2008 MUOGHALU DDS, WILLARD N 782.3 Edema 04/22/2008 MUOGHALU DDS, WILLARD N 783.1 Weight Gain Abnormal 05/16/2008 MUOGHALU DDS, WILLARD N 300.00 AN ANXIETY UNSPEC 05/16/2008 MUOGHALU DDS, WILLARD N 311 MO DEPRESSIVE DISORDER NOS 05/16/2008 [facility] AN ANXIETY UNSPEC 05/16/2008 [facility], KVNG R 311 MO DEPRESSIVE DISORDER NOS 05/16/2008 300.00 AN ANXIETY UNSPEC 05/16/2008 311 MO DEP RESSIVE DISORDER NOS 05/16/2008 300.00 AN ANXIETY UNSPEC 05/16/2008 311 MO DEP RESSIVE DISORDER NOS 05/16/2008 [facility] KV[facility] R 300.00 AN ANXIETY UNSPEC 05/16/2008 [facility], KVNG R 311 MO DEPRESSIVE DISORDER NOS 05/16/2008 300.00 AN ANXIETY UNSPEC 05/16/2008 311 MO DEP RESSIVE DISORDER NOS 05/16/2008 300.00 AN ANXIETY UNSPEC 05/16/2008 311 MO DEP RESSIVE DISORDER NOS 05/16/2008 300.00 AN ANXIETY UNSPEC 05/16/2008 311 MO DEP RESSIVE DISORDER NOS 05/16/2008 300.00 AN ANXIETY UNSPEC 05/16/2008 311 MO DEP RESSIVE DISORDER NOS 05/16/2008 300.00 AN ANXIETY UNSPEC 05/16/2008 311 MO DEP RESSIVE DISORDER NOS 05/16/2008 300.00 AN ANXIETY UNSPEC 05/16/2008 311 MO DEP RESSIVE DISORDER NOS 05/16/2008 300.00 AN ANXIETY UNSPEC 05/16/2008 311 MO DEP RESSIVE DISORDER NOS 05/16/2008 300.00 AN ANXIETY UNSPEC 05/16/2008 311 MO DEP RESSIVE DISORDER NOS 05/16/2008 300.00 AN ANXIETY UNSPEC 05/16/2008 311 MO DEP RESSIVE DISORDER NOS 05/16/2008 [facility] 300.00 AN ANXIETY UNSPEC 05/16/2008 [facility], KVNG R 311 MO DEPRESSIVE DISORDER NOS 05/16/2008 [facility] 300.00 AN ANXIETY UNSPEC 05/16/2008 [facility] 311 MO DEPRESSIVE DISORDER NOS 05/16/2008 [facility] 300.00 AN ANXIETY UNSPEC 05/16/2008 [facility] 311 MO DEPRESSIVE DISORDER NOS 05/16/2008 NATHALIE TORO MD 300.0 0 AN ANXIETY UNSPEC 05/16/2008 NATHALIE TORO MD 311 MO DEPRESSIVE DISORDER NOS 05/16/2008 [facility] 300.00 AN ANXIETY UNSPEC 05/16/2008 [facility], KV[facility] R 311 MO DEPRESSIVE DISORDER NOS 05/16/2008 EDUARDO COBB JR S 300.00 AN ANXIETY UNSPEC 05/16/2008 EDUARDO COBB JR S 3 11 MO DEPRESSIVE DISORDER NOS 05/16/2008 [facility], KVNG R 300.00 AN ANXIETY UNSPEC 05/16/2008 [facility], KVNG R 311 MO DEPRESSIVE DISORDER NOS 05/16/2008 [facility], KV[facility] R 300.00 AN ANXIETY UNSPEC 05/16/2008 [facility], KV[facility] R 311 MO DEPRESSIVE DISORDER NOS 05/16/2008 LETTY WILKINS APRN S 300.00 AN ANXIETY UNSPEC 05/16/2008 LETTY WILKINS APRN S 311 MO DEPRESSIVE DISORDER NOS 05/16/2008 NATHALIE TORO MD 300.0 0 AN ANXIETY UNSPEC 05/16/2008 NATHALIE TORO MD 311 MO DEPRESSIVE DISORDER NOS 05/16/2008 [facility], KVNG R 300.00 AN ANXIETY UNSPEC 05/16/2008 [facility], KVNG R 311 MO DEPRESSIVE DISORDER NOS 05/16/2008 NATHALIE TORO MD 300.0 0 AN ANXIETY UNSPEC 05/16/2008 NATHALIE TORO MD 311 MO DEPRESSIVE DISORDER NOS 05/16/2008 [facility], KVNG R 300.00 AN ANXIETY UNSPEC 05/16/2008 [facility], KVNG R 311 MO DEPRESSIVE DISORDER NOS 05/16/2008 [facility], KVNG R 300.00 AN ANXIETY UNSPEC 05/16/2008 [facility], KVNG R 311 MO DEPRESSIVE DISORDER NOS 05/16/2008 [facility], KVNG R 300.00 AN ANXIETY UNSPEC 05/16/2008 [facility], KVNG R 311 MO DEPRESSIVE DISORDER NOS 05/16/2008 [employer], ROBERT 300 .00 AN ANXIETY UNSPEC 05/16/2008 [employer]IST, ROBERT 311 MO DEPRESSIVE DISORDER NOS 05/16/2008 [employer]IST, ROBERT 300 .00 AN ANXIETY UNSPEC 05/16/2008 [employer]IST, ROBERT 311 MO DEPRESSIVE DISORDER NOS 05/16/2008 FRANKY MARKETING PRODUCTION SPECIALISTANTONIA VazquezNDA S 300.00 AN ANXIETY UNSPEC 05/16/2008 FRANK[employer] MARKET[employer] PRODUCTION SPECIALISTANTONIA VazquezNDA S 311 MO DEPRESSIVE DISORDER NOS 05/16/2008 [facility], [facility] R 300.00 AN ANXIETY UNSPEC 05/16/2008 [facility], KVNG R 311 MO DEPRESSIVE DISORDER NOS 05/16/2008 [facility], KV[facility] R 300.00 AN ANXIETY UNSPEC 05/16/2008 [facility], KVNG R 311 MO DEPRESSIVE DISORDER NOS 05/16/2008 [employer]IST, ROBERT 300 .00 AN ANXIETY UNSPEC 05/16/2008 [employer]IST, ROBERT 311 MO DEPRESSIVE DISORDER NOS 05/16/2008 [facility], [facility] R 300.00 AN ANXIETY UNSPEC 05/16/2008 [facility], KV[facility] R 311 MO DEPRESSIVE DISORDER NOS 05/16/2008 [employer], LETTY S 300.00 AN ANXIETY UNSPEC 05/16/2008 [employer]IST, LETTY S 311 MO DEPRESSIVE DISORDER NOS 05/16/2008 [facility], [facility] R 300.00 AN ANXIETY UNSPEC 05/16/2008 [facility], KV[facility] R 311 MO DEPRESSIVE DISORDER NOS 05/16/2008 [facility], [facility] R 300.00 AN ANXIETY UNSPEC 05/16/2008 [facility], KVNG R 311 MO DEPRESSIVE DISORDER NOS 05/16/2008 [facility], [facility] R 300.00 AN ANXIETY UNSPEC 05/16/2008 [facility], [facility] R 311 MO DEPRESSIVE DISORDER NOS 05/16/2008 KRISSHALU DDS, WILLARD N 300.00 AN ANXIETY UNSPEC 05/16/2008 KRISSHALU DDS, WILLARD N 311 MO DEPRESSIVE DISORDER NOS 05/26/2008 KRISSHALU DDS, WILLARD N 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 05/26/2008 [facility], [facility] R 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 05/26/2008 345.8 non- epileptic events 05/26/2008 345.8 non- epileptic events 05/26/2008 [facility], [facility] R 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 05/26/2008 345.8 non- epileptic events 05/26/2008 345.8 non- epileptic events 05/26/2008 345.8 non- epileptic events 05/26/2008 345.8 non- epileptic events 05/26/2008 345.8 non- epileptic events 05/26/2008 345.8 non- epileptic events 05/26/2008 345.8 non- epileptic events 05/26/2008 345.8 non- epileptic events 05/26/2008 345.8 non- epileptic events 05/26/2008 [facility], KVNG R 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 05/26/2008 [facility], KV[facility] R 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 05/26/2008 [facility], KVNG R 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 05/26/2008 NATHALIE TORO MD 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 05/26/2008 [facility], KVNG R 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 05/26/2008 EDUARDO COBB JR S 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8 non-epileptic events 05/26/2008 [employer]IST, ROBERT 345 .8 non-epileptic events 05/26/2008 [employer]IST, LETTY S 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 05/26/2008 [facility], KVNG R 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 05/26/2008 [facility], [facility] R 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 05/26/2008 [employer]IST, ROBERT 345 .8 NON-EPILEPTIC EVENTS 05/26/2008 [facility], KVNG R 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 05/26/2008 [employer] SPECIALIST, LETTY S 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 05/26/2008 [facility], KV[facility] R 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 05/26/2008 [facility], [facility] R 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 05/26/2008 [facility], KV[facility] R 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 05/26/2008 MUOGHALU DDS, WILLARD N 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 06/03/2008 MUOGHALU DDS, WILLARD N 316 PF PSYCHIC FACTORS MED COND 06/03/2008 [facility], KVNG R 316 PF PSYCHIC FACTORS MED COND 06/03/2008 316 PF PSY CHIC FACTORS MED COND 06/03/2008 316 PF PSY CHIC FACTORS MED COND 06/03/2008 [facility], KVNG R 316 PF PSYCHIC FACTORS MED COND 06/03/2008 316 PF PSY CHIC FACTORS MED COND 06/03/2008 316 PF PSY CHIC FACTORS MED COND 06/03/2008 316 PF PSY CHIC FACTORS MED COND 06/03/2008 316 PF PSY CHIC FACTORS MED COND 06/03/2008 316 PF PSY CHIC FACTORS MED COND 06/03/2008 316 PF PSY CHIC FACTORS MED COND 06/03/2008 316 PF PSY CHIC FACTORS MED COND 06/03/2008 316 PF PSY CHIC FACTORS MED COND 06/03/2008 316 PF PSY CHIC FACTORS MED COND 06/03/2008 [facility], KV[facility] R 316 PF PSYCHIC FACTORS MED COND 06/03/2008 [facility], KVNG R 316 PF PSYCHIC FACTORS MED COND 06/03/2008 [facility], KV[facility] R 316 PF PSYCHIC FACTORS MED COND 06/03/2008 NATHALIE TORO MD 316 PF PSYCHIC FACTORS MED COND 06/03/2008 [facility], KV[facility] R 316 PF PSYCHIC FACTORS MED COND 06/03/2008 EDUARDO COBB JR S 3 16 PF PSYCHIC FACTORS MED COND 06/03/2008 [facility] [...] PF PSYCHIC FACTORS MED COND 06/03/2008 [employer]IST, ROBERT 316 PF PSYCHIC FACTORS MED COND 06/03/2008 [employer] SPECIALIST, ROBERT 316 PF PSYCHIC FACTORS MED COND 06/03/2008 SHEILA WILKINS APRNA S 316 PF PSYCHIC FACTORS MED COND 06/03/2008 [facility], KVNG R 316 PF PSYCHIC FACTORS MED COND 06/03/2008 [facility], KV[facility] R 316 PF PSYCHIC FACTORS MED COND 06/03/2008 [employer] SPECIALIST, ROBERT 316 PF PSYCHIC FACTORS MED COND 06/03/2008 [facility], KVNG R 316 PF PSYCHIC FACTORS MED COND 06/03/2008 [employer] PRODUCTION SPECIALISTANTONIA VazquezNDA S 316 PF PSYCHIC FACTORS MED COND [...] WILLARD N V58.69 Medication High Risk 09/07/2008 [facility], [facility] 465.9 Upper Respiratory Infection 09/07/2008 [facility], [facility] R V58.69 Medication High Risk 09/07/2008 465.9 Uppe r Respiratory Infection 09/07/2008 V58.69 Med ication High Risk 09/07/2008 465.9 Uppe r Respiratory Infection 09/07/2008 V58.69 Med ication High Risk 09/07/2008 [facility], [facility] R 465.9 Upper Respiratory Infection 09/07/2008 [facility], [facility] R V58.69 Medication High Risk 09/07/2008 465.9 Uppe r Respiratory Infection 09/07/2008 V58.69 Med ication High Risk 09/07/2008 465.9 Uppe r Respiratory Infection 09/07/2008 V58.69 Med ication High Risk 09/07/2008 465.9 Uppe r Respiratory Infection 09/07/2008 V58.69 Med ication High Risk 09/07/2008 465.9 Uppe r Respiratory Infection 09/07/2008 V58.69 Med ication High Risk 09/07/2008 465.9 Uppe r Respiratory Infection 09/07/2008 V58.69 Med ication High Risk 09/07/2008 465.9 Uppe r Respiratory Infection 09/07/2008 V58.69 Med ication High Risk 09/07/2008 465.9 Uppe r Respiratory Infection 09/07/2008 V58.69 Med ication High Risk 09/07/2008 465.9 Uppe r Respiratory Infection 09/07/2008 V58.69 Med ication High Risk 09/07/2008 465.9 Uppe r Respiratory Infection 09/07/2008 V58.69 Med ication High Risk 09/07/2008 [facility], [facility] R 465.9 Upper Respiratory Infection 09/07/2008 [facility], [facility] R V58.69 Medication High Risk 09/07/2008 [facility], [facility] R 465.9 Upper Respiratory Infection 09/07/2008 [facility], [facility] R V58.69 Medication High Risk 09/07/2008 [facility], [facility] R 465.9 Upper Respiratory Infection 09/07/2008 [facility], [facility] R V58.69 Medication High Risk 09/07/2008 NATHALIE TORO MD 465.9 Upper Respiratory Infection 09/07/2008 NATHALIE TORO MD V58.6 9 Medication High Risk 09/07/2008 [facility], [facility] R 465.9 Upper Respiratory Infection 09/07/2008 [facility], [facility] R V58.69 Medication High Risk 09/07/2008 EDUARDO COBB JR 465.9 Upper Respiratory Infection 09/07/2008 EDUARDO COBB JR V58.69 Medication High Risk 09/07/2008 [facility], [facility] R 465.9 Upper Respiratory Infection 09/07/2008 [facility] R V58.69 Medication High Risk 09/07/2008 [facility], [facility] R 465.9 Upper Respiratory Infection 09/07/2008 [facility], [facility] V58.69 Medication High Risk 09/07/2008 LETTY WILKINS APRN S 465.9 Upper Respiratory Infection 09/07/2008 LETTY WILKINS APRN S V58.69 Medication High Risk 09/07/2008 NATHALIE TORO MD 465.9 Upper Respiratory Infection 09/07/2008 MUNA SAUNDERS, NATHALIE V58.6 9 Medication High Risk 09/07/2008 [facility], KVNG R 465.9 Upper Respiratory Infection 09/07/2008 [facility], [facility] R V58.69 Medication High Risk 09/07/2008 MUNA SAUNDERS, NATHALIE 465.9 Upper Respiratory Infection 09/07/2008 MUNA SAUNDERS, NATHALIE V58.6 9 Medication High Risk 09/07/2008 [facility], KV[facility] R 465.9 Upper Respiratory Infection 09/07/2008 [facility], [facility] R V58.69 Medication High Risk 09/07/2008 [facility], KVNG R 465.9 Upper Respiratory Infection 09/07/2008 [facility], KV[facility] R V58.69 Medication High Risk 09/07/2008 [facility], [facility] R 465.9 Upper Respiratory Infection 09/07/2008 [facility], [facility] R V58.69 Medication High Risk 09/07/2008 [employer], ROBERT 465 .9 Upper Respiratory Infection 09/07/2008 [employer] SPECIALIST, ROBERT V58 .69 Medication High Risk 09/07/2008 [employer] SPECIALIST, ROBERT 465 .9 Upper Respiratory Infection 09/07/2008 [employer] SPECIALIST, ROBERT V58 .69 Medication High Risk 09/07/2008 [employer], LETTY S 465.9 Upper Respiratory Infection 09/07/2008 [employer], LETTY S V58.69 Medication High Risk 09/07/2008 [facility], KVNG R 465.9 Upper Respiratory Infection 09/07/2008 [facility], KVNG R V58.69 Medication High Risk 09/07/2008 [facility], KVNG R 465.9 Upper Respiratory Infection 09/07/2008 [facility], KVNG R V58.69 Medication High Risk 09/07/2008 [employer], ROBERT 465 .9 Upper Respiratory Infection 09/07/2008 [employer], ROBERT V58 .69 Medication High Risk 09/07/2008 [facility], KVNG R 465.9 Upper Respiratory Infection 09/07/2008 [facility], KVNG R V58.69 Medication High Risk 09/07/2008 [employer], LETTY S 465.9 Upper Respiratory Infection 09/07/2008 [employer], LETTY S V58.69 Medication High Risk 09/07/2008 [facility], KVNG R 465.9 Upper Respiratory Infection 09/07/2008 [facility], KVNG R V58.69 Medication High Risk 09/07/2008 [facility], KVNG R 465.9 Upper Respiratory Infection 09/07/2008 [facility], KVNG R V58.69 Medication High Risk 09/07/2008 [facility], KVNG R 465.9 Upper Respiratory Infection 09/07/2008 [facility], KVNG R V58.69 Medication High Risk 09/07/2008 [facility], WILLARD N 465.9 Upper Respiratory Infection 09/07/2008 [facility] D[facility], WILLARD N V58.69 Medication High Risk 10/12/2008 [facility] D[facility], WILLARD N NODX No Diagnosis 10/12/2008 [facility], KVNG R NODX No Diagnosis 10/12/2008 NODX No Di agnosis 10/12/2008 NODX No Di agnosis 10/12/2008 [facility], KVNG R NODX No Diagnosis 10/12/2008 NODX No Di agnosis 10/12/2008 NODX No Di agnosis 10/12/2008 NODX No Di agnosis 10/12/2008 NODX No Di agnosis 10/12/2008 NODX No Di agnosis 10/12/2008 NODX No Di agnosis 10/12/2008 NODX No Di agnosis 10/12/2008 NODX No Di agnosis 10/12/2008 NODX No Di agnosis 10/12/2008 [facility], KVNG R NODX No Diagnosis 10/12/2008 [facility], KVNG R NODX No Diagnosis 10/12/2008 [facility], KVNG R NODX No Diagnosis 10/12/2008 NATHALIE TORO MD NODX No Diagnosis 10/12/2008 [facility], KVNG R NODX No Diagnosis 10/12/2008 EDUARDO COBB JR N ODX No Diagnosis 10/12/2008 [facility], KVNG R NODX No Diagnosis 10/12/2008 [facility], KVNG R NODX No Diagnosis 10/12/2008 FRANKY DAY, LETTY S NODX No Diagnosis 10/12/2008 HUERTER MD, NATHALIE NODX No Diagnosis 10/12/2008 [facility] NODX No Diagnosis 10/12/2008 MUNA SAUNDERS, NATHALIE NODX No Diagnosis 10/12/2008 [facility] No Diagnosis 10/12/2008 [facility] NOD[facility] No Diagnosis 10/12/2008 [facility] NOD[facility] No Diagnosis 10/12/2008 [employer], ROBERT NOD X No Diagnosis 10/12/2008 [employer]IST, ROBERT NOD X No Diagnosis 10/12/2008 [employer], LETTY S NODX No Diagnosis 10/12/2008 [facility] No Diagnosis 10/12/2008 [facility] NOD[facility] No Diagnosis 10/12/2008 [employer]IST, ROBERT NOD X No Diagnosis 10/12/2008 [facility] No Diagnosis 10/12/2008 [employer]IST, LETTY S NODX No Diagnosis 10/12/2008 [facility] No Diagnosis 10/12/2008 [facility] No Diagnosis 10/12/2008 [facility] No Diagnosis 10/12/2008 MUOGHALU DDS, WILLARD N NODX No Diagnosis 10/27/2008 [facility] DDS, WILLARD N 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 10/27/2008 MUOGHALU DDS, WILLARD N 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 10/27/2008 [facility] 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 10/27/2008 [facility] 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 10/27/2008 300.11 CON VERSION DISORDER 10/27/2008 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 10/27/2008 300.11 CON VERSION DISORDER 10/27/2008 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 10/27/2008 [facility] 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 10/27/2008 [facility] 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 10/27/2008 300.11 CON VERSION DISORDER 10/27/2008 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 10/27/2008 300.11 CON VERSION DISORDER 10/27/2008 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 10/27/2008 300.11 CON VERSION DISORDER 10/27/2008 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 10/27/2008 300.11 CON VERSION DISORDER 10/27/2008 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 10/27/2008 300.11 CON VERSION DISORDER 10/27/2008 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 10/27/2008 300.11 CON VERSION DISORDER 10/27/2008 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 10/27/2008 300.11 CON VERSION DISORDER 10/27/2008 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 10/27/2008 300.11 CON VERSION DISORDER 10/27/2008 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 10/27/2008 300.11 CON VERSION DISORDER 10/27/2008 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 10/27/2008 [facility], [facility] 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 10/27/2008 [facility] 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 10/27/2008 [facility] 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 10/27/2008 [facility] 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 10/27/2008 [facility] 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 10/27/2008 [facility] 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 10/27/2008 NATHALIE TORO MD 300.1 1 CONVERSION DISORDER 10/27/2008 NATHALIE TORO MD 300.2 1 AN PANIC DIS W AGORA 10/27/2008 [facility] 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 10/27/2008 [facility] 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 10/27/2008 EDUARDO COBB JR S 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 10/27/2008 EDUARDO COBB JR 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 10/27/2008 [facility] 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 10/27/2008 [facility] 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 10/27/2008 [facility] 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 10/27/2008 [facility] 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 10/27/2008 LETTY WILKINS APRN S 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 10/27/2008 [employer], LETTY S 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 10/27/2008 NATHALIE TORO MD 300.1 1 CONVERSION DISORDER 10/27/2008 NATHALIE TORO MD 300.2 1 AN PANIC DIS W AGORA 10/27/2008 [facility] 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 10/27/2008 [facility] 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 10/27/2008 NATHALIE TORO MD 300.1 1 CONVERSION DISORDER 10/27/2008 NATHALIE TORO MD 300.2 1 AN PANIC DIS W AGORA 10/27/2008 [facility] 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 10/27/2008 [facility] 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 10/27/2008 [facility] 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 10/27/2008 [facility] 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 10/27/2008 [facility] 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 10/27/2008 [facility] 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 10/27/2008 [employer]IST, ROBERT 300 .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 10/27/2008 [employer]IST, ROBERT 300 .21 AN PANIC DIS W AGORA 10/27/2008 [employer]IST, ROBERT 300 .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 10/27/2008 [employer] SPECIALIST, ROBERT 300 .21 AN PANIC DIS W AGORA 10/27/2008 [employer]IST, LETTY S 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 10/27/2008 [employer]IST, LETTY S 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 10/27/2008 [facility] 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 10/27/2008 [facility] 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 10/27/2008 [facility] 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 10/27/2008 [facility] 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 10/27/2008 [employer]IST, ROBERT 300 .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 10/27/2008 [employer]IST, ROBERT 300 .21 AN PANIC DIS W AGORA 10/27/2008 [facility] 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 10/27/2008 [facility] 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 10/27/2008 [employer]IST, LETTY S 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 10/27/2008 [employer]IST, LETTY S 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 10/27/2008 [facility] 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 10/27/2008 [facility] 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 10/27/2008 [facility] 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 10/27/2008 [facility] 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 10/27/2008 [facility] 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 10/27/2008 [facility] 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 10/27/2008 [facility] DDS, WILLARD N 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 10/27/2008 [facility] DDS, WILLARD N 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 11/15/2008 [facility]OG[facility] DDS, WILLARD N 112.1 Vaginitis Elena Albicans 11/15/2008 [facility] 112.1 Vaginitis Elena Albicans 11/15/2008 112.1 Vagi nitis Elena Albicans 11/15/2008 112.1 Vagi nitis Elena Albicans 11/15/2008 [facility] 112.1 Vaginitis Elena Albicans 11/15/2008 112.1 Vagi nitis Elena Albicans 11/15/2008 112.1 Vagi nitis Elena Albicans 11/15/2008 112.1 Vagi nitis Elena Albicans 11/15/2008 112.1 Vagi nitis Elena Albicans 11/15/2008 112.1 Vagi nitis Elena Albicans 11/15/2008 112.1 Vagi nitis Elena Albicans 11/15/2008 112.1 Vagi nitis Elena Albicans 11/15/2008 112.1 Vagi nitis Elena Albicans 11/15/2008 112.1 Vagi nitis Elnea Albicans 11/15/2008 [facility] 112.1 Vaginitis Elena Albicans 11/15/2008 [facility] 112.1 Vaginitis Elena Albicans 11/15/2008 [facility] 112.1 Vaginitis Elena Albicans 11/15/2008 NATHALIE TORO MD 112.1 Vaginitis Elena Albicans 11/15/2008 [facility] 112.1 Vaginitis Elena Albicans 11/15/2008 EDUARDO COBB JR S 112.1 Vaginitis Elena Albicans 11/15/2008 [facility] 112.1 Vaginitis Elena Albicans 11/15/2008 [facility] 112.1 Vaginitis Elena Albicans 11/15/2008 SHEILA WILKINS APRNA S 112.1 Vaginitis Elena Albicans 11/15/2008 NATHALIE TORO MD 112.1 Vaginitis Elena Albicans 11/15/2008 [facility] 112.1 Vaginitis Elena Albicans 11/15/2008 NATHALIE TORO MD 112.1 Vaginitis Elena Albicans 11/15/2008 [facility] 112.1 Vaginitis Elena Albicans 11/15/2008 [facility] 112.1 Vaginitis Elena Albicans 11/15/2008 [facility] 112.1 Vaginitis Elena Albicans 11/15/2008 [employer]IST, ROBERT 112 .1 Vaginitis Elena Albicans 11/15/2008 [employer]IST, ROBERT 112 .1 Vaginitis Elena Albicans 11/15/2008 ANTONIA WILKINS APRNNDA S 112.1 Vaginitis Elena Albicans 11/15/2008 [facility] 112.1 Vaginitis Elena Albicans 11/15/2008 [facility] 112.1 Vaginitis Elena Albicans 11/15/2008 [employer]IST, ROBERT 112 .1 Vaginitis Elena Albicans 11/15/2008 [facility] 112.1 Vaginitis Elena Albicans 11/15/2008 ANTONIA WILKINS APRNNDA S 112.1 Vaginitis Elena Albicans 11/15/2008 [facility] 112.1 Vaginitis Elena Albicans 11/15/2008 [facility] 112.1 Vaginitis Elena Albicans 11/15/2008 [facility] 112.1 Vaginitis Elena Albicans 11/15/2008 MUOGHAL[facility] DDS, WILLARD N 112.1 Vaginitis Elena Albicans 12/08/2008 MANASA SHEPARDS, WILLARD N 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 12/08/2008 [facility] 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 12/08/2008 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 12/08/2008 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 12/08/2008 [facility] 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 [...] 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 12/08/2008 [facility] 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 12/08/2008 [facility] 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 12/08/2008 [facility] 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 12/08/2008 NATHALIE TORO MD 300.0 1 AN PANIC 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 12/08/2008 [facility] 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 12/08/2008 EDUARDO COBB JR S 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 12/08/2008 [facility] 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 12/08/2008 [facility] 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 12/08/2008 LETTY WILKINS APRN 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 12/08/2008 NATHALIE TORO MD 300.0 1 AN PANIC 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 12/08/2008 [facility] 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 12/08/2008 NATHALIE TORO MD 300.0 1 AN PANIC 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 12/08/2008 [facility] 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 12/08/2008 [facility] 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 12/08/2008 [facility] 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 12/08/2008 [employer]IST, ROBERT 300 .01 AN PANIC 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 12/08/2008 [employer]IST, ROBERT 300 .01 AN PANIC 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 12/08/2008 [employer]IST, LETTY S 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 12/08/2008 [facility] 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 12/08/2008 [facility] 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 12/08/2008 [employer]IST, ROBERT 300 .01 AN PANIC 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 12/08/2008 [facility] 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 12/08/2008 [employer]IST, LETTY S 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 12/08/2008 [facility] 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 12/08/2008 [facility] 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 12/08/2008 [facility] 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 12/08/2008 MUOGHAL[facility] DDS, WILLARD N 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 12/22/2008 BONNIEU DDS, WILLARD N 008.8 Gastroenteritis Viral 12/22/2008 [facility], [facility] 008.8 Gastroenteritis Viral 12/22/2008 008.8 Bharti roenteritis Viral 12/22/2008 008.8 Bharti roenteritis Viral 12/22/2008 [facility], [facility] 008.8 Gastroenteritis Viral 12/22/2008 008.8 Bharti roenteritis Viral 12/22/2008 008.8 Bharti roenteritis Viral 12/22/2008 008.8 Bharti roenteritis Viral 12/22/2008 008.8 Bharti roenteritis Viral 12/22/2008 008.8 Bharti roenteritis Viral 12/22/2008 008.8 Bharti roenteritis Viral 12/22/2008 008.8 Bharti roenteritis Viral 12/22/2008 008.8 Bharti roenteritis Viral 12/22/2008 008.8 Bharti roenteritis Viral 12/22/2008 [facility] 008.8 Gastroenteritis Viral 12/22/2008 [facility] 008.8 Gastroenteritis Viral 12/22/2008 [facility] 008.8 Gastroenteritis Viral 12/22/2008 NATHALIE TORO MD 008.8 Gastroenteritis Viral 12/22/2008 [facility] 008.8 Gastroenteritis Viral 12/22/2008 EDUARDO COBB JR S 008.8 Gastroenteritis Viral 12/22/2008 [facility] 008.8 Gastroenteritis Viral 12/22/2008 [facility] 008.8 Gastroenteritis Viral 12/22/2008 [employer]IST, LETTY S 008.8 Gastroenteritis Viral 12/22/2008 NATHALIE TORO MD 008.8 Gastroenteritis Viral 12/22/2008 [facility] 008.8 Gastroenteritis Viral 12/22/2008 NATHALIE TORO MD 008.8 Gastroenteritis Viral 12/22/2008 [facility] 008.8 Gastroenteritis Viral 12/22/2008 [facility] 008.8 Gastroenteritis Viral 12/22/2008 [facility] 008.8 Gastroenteritis Viral 12/22/2008 [employer]IST, ROBERT 008 .8 Gastroenteritis Viral 12/22/2008 [employer] SPECIALIST, ROBERT 008 .8 Gastroenteritis Viral 12/22/2008 [employer]IST, LETTY S 008.8 Gastroenteritis Viral 12/22/2008 [facility] 008.8 Gastroenteritis Viral 12/22/2008 [facility] 008.8 Gastroenteritis Viral 12/22/2008 [employer] SPECIALIST, ROBERT 008 .8 Gastroenteritis Viral 12/22/2008 [facility] 008.8 Gastroenteritis Viral 12/22/2008 [employer] SPECIALIST, LETTY S 008.8 Gastroenteritis Viral 12/22/2008 [facility] 008.8 Gastroenteritis Viral 12/22/2008 [facility] 008.8 Gastroenteritis Viral 12/22/2008 [facility] 008.8 Gastroenteritis Viral 12/22/2008 [facility] DDS, WILLARD N 008.8 Gastroenteritis Viral 12/23/2008 [facility]OG[facility] DDS, WILLARD N 276.8 Hypopotassemia 12/23/2008 [facility] 276.8 Hypopotassemia 12/23/2008 276.8 Hypo potassemia 12/23/2008 276.8 Hypo potassemia 12/23/2008 [facility] 276.8 Hypopotassemia 12/23/2008 276.8 Hypo potassemia 12/23/2008 276.8 Hypo potassemia 12/23/2008 276.8 Hypo potassemia 12/23/2008 276.8 Hypo potassemia 12/23/2008 276.8 Hypo potassemia 12/23/2008 276.8 Hypo potassemia 12/23/2008 276.8 Hypo potassemia 12/23/2008 276.8 Hypo potassemia 12/23/2008 276.8 Hypo potassemia 12/23/2008 [facility] 276.8 Hypopotassemia 12/23/2008 [facility] 276.8 Hypopotassemia 12/23/2008 [facility] 276.8 Hypopotassemia 12/23/2008 NATHALIE TORO MD 276.8 Hypopotassemia 12/23/2008 [facility] 276.8 Hypopotassemia 12/23/2008 EDUARDO COBB JR 276.8 Hypopotassemia 12/23/2008 [facility] 276.8 Hypopotassemia 12/23/2008 [facility] 276.8 Hypopotassemia 12/23/2008 LETTY WILKINS APRN 276.8 Hypopotassemia 12/23/2008 NATHALIE TORO MD 276.8 Hypopotassemia 12/23/2008 [facility] 276.8 Hypopotassemia 12/23/2008 NATHALIE TORO MD 276.8 Hypopotassemia 12/23/2008 [facility] 276.8 Hypopotassemia 12/23/2008 [facility] 276.8 Hypopotassemia 12/23/2008 [facility] 276.8 Hypopotassemia 12/23/2008 [employer]IST, ROBERT 276 .8 Hypopotassemia 12/23/2008 [employer] SPECIALIST, ROBERT 276 .8 Hypopotassemia 12/23/2008 [employer]IST, LETTY S 276.8 Hypopotassemia 12/23/2008 [facility] 276.8 Hypopotassemia 12/23/2008 [facility] 276.8 Hypopotassemia 12/23/2008 [employer] SPECIALIST, ROBERT 276 .8 Hypopotassemia 12/23/2008 [facility] 276.8 Hypopotassemia 12/23/2008 [employer] SPECIALIST, LETTY S 276.8 Hypopotassemia 12/23/2008 [facility] 276.8 Hypopotassemia 12/23/2008 [facility] 276.8 Hypopotassemia 12/23/2008 [facility] 276.8 Hypopotassemia 12/23/2008 MU[facility] DDS, WILLARD N 276.8 Hypopotassemia 02/06/2009 [facility]OG[facility] DDS, WILLARD N 346.90 Migraine Unspecified 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 Migraine 02/06/2009 [facility] 346.90 Migraine Unspecified 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 Migraine 02/06/2009 346.90 Arnaud angelika Unspecified 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 Migraine 02/06/2009 346.90 Arnaud angelika Unspecified 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 Migraine 02/06/2009 [facility], [facility] 346.90 Migraine Unspecified 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 Migraine 02/06/2009 346.90 Arnaud angelika Unspecified 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 Migraine 02/06/2009 346.90 Arnaud angelika Unspecified 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 Migraine 02/06/2009 346.90 Arnaud angelika Unspecified 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 Migraine 02/06/2009 346.90 Arnaud angelika Unspecified 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 Migraine 02/06/2009 346.90 Arnaud angelika Unspecified 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 Migraine 02/06/2009 346.90 Arnaud angelika Unspecified 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 Migraine 02/06/2009 346.90 Arnaud angelika Unspecified 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 Migraine 02/06/2009 346.90 Arnaud angelika Unspecified 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 Migraine 02/06/2009 346.90 Arnaud angelika Unspecified 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 Migraine 02/06/2009 [facility] 346.90 Migraine Unspecified 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 Migraine 02/06/2009 [facility] 346.90 Migraine Unspecified 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 Migraine 02/06/2009 [facility], [facility] 346.90 Migraine Unspecified 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 Migraine 02/06/2009 NATHALIE TORO MD 346.9 0 Migraine Unspecified 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 Migraine 02/06/2009 [facility], [facility] 346.90 Migraine Unspecified 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 Migraine 02/06/2009 EDUARDO COBB JR S 346.90 Migraine Unspecified 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 Migraine 02/06/2009 [facility], [facility] 346.90 Migraine Unspecified 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 Migraine 02/06/2009 [facility], [facility] 346.90 Migraine Unspecified 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 Migraine 02/06/2009 [employer], LETTY S 346.90 Migraine Unspecified 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 Migraine 02/06/2009 NATHALIE TORO MD 346.9 0 Migraine Unspecified 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 Migraine 02/06/2009 [facility], [facility] 346.90 Migraine Unspecified 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 Migraine 02/06/2009 NATHALIE TORO MD 346.9 0 Migraine Unspecified 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 Migraine 02/06/2009 [facility], [facility] 346.90 Migraine Unspecified 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 Migraine [facility] Migraine Unspecified 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 Migraine 02/06/2009 [facility] 346.90 Migraine Unspecified 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 Migraine 02/06/2009 [employer]IST, ROBERT 346 .90 Migraine Unspecified 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 Migraine 02/06/2009 [employer] SPECIALIST, ROBERT 346 .90 Migraine Unspecified 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 Migraine 02/06/2009 [employer]IST, LETTY S 346.90 Migraine Unspecified 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 Migraine 02/06/2009 [facility] 346.90 Migraine Unspecified 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 Migraine 02/06/2009 [facility] 346.90 Migraine Unspecified 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 Migraine 02/06/2009 [employer] SPECIALIST, ROBERT 346 .90 Migraine Unspecified 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 Migraine 02/06/2009 [facility], [facility] 346.90 Migraine Unspecified 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 Migraine 02/06/2009 [employer]IST, LETTY S 346.90 Migraine Unspecified 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 Migraine 02/06/2009 [facility] 346.90 Migraine Unspecified 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 Migraine 02/06/2009 [facility] 346.90 Migraine Unspecified 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 Migraine 02/06/2009 [facility], [facility] 346.90 Migraine Unspecified 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 Migraine 02/06/2009 MUOG[facility] DDS, WILLARD N 346.90 Migraine Unspecified 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 Migraine 02/23/2009 [facility]OG[facility] DDS, WILLARD N 300.02 GENERALIZED ANXIETY DISORDER 02/23/2009 [facility] 300.02 GENERALIZED ANXIETY DISORDER 02/23/2009 300.02 GEN ERALIZED ANXIETY DISORDER 02/23/2009 300.02 GEN ERALIZED ANXIETY DISORDER 02/23/2009 [facility], [facility] 300.02 GENERALIZED ANXIETY DISORDER 02/23/2009 300.02 GEN ERALIZED ANXIETY DISORDER 02/23/2009 300.02 GEN ERALIZED ANXIETY DISORDER 02/23/2009 300.02 GEN ERALIZED ANXIETY DISORDER 02/23/2009 300.02 GEN ERALIZED ANXIETY DISORDER 02/23/2009 300.02 GEN ERALIZED ANXIETY DISORDER 02/23/2009 300.02 GEN ERALIZED ANXIETY DISORDER 02/23/2009 300.02 GEN ERALIZED ANXIETY DISORDER 02/23/2009 300.02 GEN ERALIZED ANXIETY DISORDER 02/23/2009 300.02 GEN ERALIZED ANXIETY DISORDER 02/23/2009 [facility] 300.02 GENERALIZED ANXIETY DISORDER 02/23/2009 [facility] 300.02 GENERALIZED ANXIETY DISORDER 02/23/2009 [facility] 300.02 GENERALIZED ANXIETY DISORDER 02/23/2009 NATHALIE TORO MD 300.0 2 GENERALIZED ANXIETY DISORDER 02/23/2009 [facility] 300.02 GENERALIZED ANXIETY DISORDER 02/23/2009 EDUARDO COBB JR 300.02 GENERALIZED ANXIETY DISORDER 02/23/2009 [facility] 300.02 GENERALIZED ANXIETY DISORDER 02/23/2009 [facility] 300.02 GENERALIZED ANXIETY DISORDER 02/23/2009 LETTY WILKINS APRN 300.02 GENERALIZED ANXIETY DISORDER 02/23/2009 NATHALIE TORO MD 300.0 2 GENERALIZED ANXIETY DISORDER 02/23/2009 [facility] 300.02 GENERALIZED ANXIETY DISORDER 02/23/2009 NATHALIE TORO MD 300.0 2 GENERALIZED ANXIETY DISORDER 02/23/2009 [facility] 300.02 GENERALIZED ANXIETY DISORDER 02/23/2009 [facility] 300.02 GENERALIZED ANXIETY DISORDER 02/23/2009 [facility] 300.02 GENERALIZED ANXIETY DISORDER 02/23/2009 [employer], ROBERT 300 .02 GENERALIZED ANXIETY DISORDER 02/23/2009 [employer]IST, ROBERT 300 .02 GENERALIZED ANXIETY DISORDER 02/23/2009 [employer], LETTY S 300.02 GENERALIZED ANXIETY DISORDER 02/23/2009 [facility] 300.02 GENERALIZED ANXIETY DISORDER 02/23/2009 [facility] 300.02 GENERALIZED ANXIETY DISORDER 02/23/2009 [employer]IST, ROBERT 300 .02 GENERALIZED ANXIETY DISORDER 02/23/2009 [facility], [facility] 300.02 GENERALIZED ANXIETY DISORDER 02/23/2009 [employer], LETTY S 300.02 GENERALIZED ANXIETY DISORDER 02/23/2009 [facility] 300.02 GENERALIZED ANXIETY DISORDER 02/23/2009 [facility] 300.02 GENERALIZED ANXIETY DISORDER 02/23/2009 [facility] 300.02 GENERALIZED ANXIETY DISORDER 02/23/2009 [facility] DDS, WILLARD N 300.02 GENERALIZED ANXIETY DISORDER 05/16/2009 [facility] DDS, WILLARD N 461.0 Acute Maxillary Sinusitis 05/16/2009 [facility] 461.0 Acute Maxillary Sinusitis 05/16/2009 461.0 Acut e Maxillary Sinusitis 05/16/2009 461.0 Acut e Maxillary Sinusitis 05/16/2009 [facility], [facility] R 461.0 Acute Maxillary Sinusitis 05/16/2009 461.0 Acut e Maxillary Sinusitis 05/16/2009 461.0 Acut e Maxillary Sinusitis 05/16/2009 461.0 Acut e Maxillary Sinusitis 05/16/2009 461.0 Acut e Maxillary Sinusitis 05/16/2009 461.0 Acut e Maxillary Sinusitis 05/16/2009 461.0 Acut e Maxillary Sinusitis 05/16/2009 461.0 Acut e Maxillary Sinusitis 05/16/2009 461.0 Acut e Maxillary Sinusitis 05/16/2009 461.0 Acut e Maxillary Sinusitis 05/16/2009 [facility], KVNG R 461.0 [facility].0 Acute Maxillary Sinusitis 05/16/2009 [facility], [facility] R 461.0 Acute Maxillary Sinusitis 05/16/2009 NATHALIE TORO MD 461.0 Acute Maxillary Sinusitis 05/16/2009 [facility], [facility] R 461.0 Acute Maxillary Sinusitis 05/16/2009 EDUARDO COBB JR S 461.0 Acute Maxillary Sinusitis 05/16/2009 [facility], [facility] R 461.0 Acute Maxillary Sinusitis 05/16/2009 [facility], [facility] R 461.0 Acute Maxillary Sinusitis 05/16/2009 [employer], LETTY S 461.0 Acute Maxillary Sinusitis 05/16/2009 NATHALEI TORO MD 461.0 Acute Maxillary Sinusitis 05/16/2009 [facility], [facility] R 461.0 Acute Maxillary Sinusitis 05/16/2009 NATHALIE TORO MD 461.0 Acute Maxillary Sinusitis 05/16/2009 [facility], [facility] R 461.0 Acute Maxillary Sinusitis 05/16/2009 [facility], [facility] R 461.0 Acute Maxillary Sinusitis 05/16/2009 [facility], [facility] R 461.0 Acute Maxillary Sinusitis 05/16/2009 [facility] MARKETING PRODUCTION SPECIALIST, ROBERT 461 .0 Acute Maxillary Sinusitis 05/16/2009 WANG MARKETING PRODUCTION SPECIALIST, ROBERT 461 .0 Acute Maxillary Sinusitis 05/16/2009 FRANKY MARKETING PRODUCTION SPECIALIST, LETTY S 461.0 Acute Maxillary Sinusitis 05/16/2009 [facility], [facility] R 461.0 Acute Maxillary Sinusitis 05/16/2009 [facility], [facility] 461.0 Acute Maxillary Sinusitis 05/16/2009 WANG MARKETING PRODUCTION SPECIALIST, ROBERT 461 .0 Acute Maxillary Sinusitis 05/16/2009 [facility], [facility] R 461.0 Acute Maxillary Sinusitis 05/16/2009 FRANKY MARKETING PRODUCTION SPECIALIST, LETTY S 461.0 Acute Maxillary Sinusitis 05/16/2009 [facility], [facility] 461.0 Acute Maxillary Sinusitis 05/16/2009 [facility], [facility] 461.0 Acute Maxillary Sinusitis 05/16/2009 [facility], [facility] 461.0 Acute Maxillary Sinusitis 05/16/2009 [facility] DDS, WILLARD N 461.0 Acute Maxillary Sinusitis 08/10/2009 [facility]OG[facility] DDS, WILLARD N 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 [facility], [facility] 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 229.8 Lymp h Node Neoplasm Intrathorax Benign 08/10/2009 229.8 Lymp h Node Neoplasm Intrathorax Benign 08/10/2009 [facility], [facility] 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 229.8 Lymp h Node Neoplasm Intrathorax Benign 08/10/2009 229.8 Lymp h Node Neoplasm Intrathorax Benign 08/10/2009 229.8 Lymp h Node Neoplasm Intrathorax Benign 08/10/2009 229.8 Lymp h Node Neoplasm Intrathorax Benign 08/10/2009 229.8 Lymp h Node Neoplasm Intrathorax Benign 08/10/2009 229.8 Lymp h Node Neoplasm Intrathorax Benign 08/10/2009 229.8 Lymp h Node Neoplasm Intrathorax Benign 08/10/2009 229.8 Lymp h Node Neoplasm Intrathorax Benign 08/10/2009 229.8 Lymp h Node Neoplasm Intrathorax Benign 08/10/2009 [facility], [facility] 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 [facility], [facility] 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 [facility], [facility] 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 NATHALIE TORO MD 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 [facility], [facility] 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 EDUARDO COBB JR S 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 [facility], [facility] 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 [facility], [facility] 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 LETTY WILKINS APRN S 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 NATHALIE TORO MD 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 [facility], [facility] 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 NATHALIE TORO MD 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 [facility], [facility] 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 [facility], [facility] 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 [facility], [facility] 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 WANG MARKETING PRODUCTION SPECIALIST, ROBERT 229 .8 Lymph Node Neoplasm Intrathorax Benign 08/10/2009 WANG MARKETING PRODUCTION SPECIALIST, ROBERT 229 .8 Lymph Node Neoplasm Intrathorax Benign 08/10/2009 FRANK[facility] MARKETING PRODUCTION SPECIALIST, LETTY S 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 [facility], [facility] 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 [facility], [facility] 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 WANG MARKETING PRODUCTION SPECIALIST, ROBERT 229 .8 Lymph Node Neoplasm Intrathorax Benign 08/10/2009 [facility], [facility] 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 FRANKY MARKETING PRODUCTION SPECIALIST, LETTY S 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 [facility], [facility] 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 [facility], [facility] 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 [facility], [facility] 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 [facility] D[facility], WILLARD N 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 10/19/2009 [facility] DDS, WILLARD N 724.3 Sciatica 10/19/2009 [facility], [facility] 724.3 Sciatica 10/19/2009 724.3 Sciatica 10/19/2009 724.3 Sciatica 10/19/2009 [facility], [facility] 724.3 Sciatica 10/19/2009 [...] [facility], KV[facility] R 724.3 Sciatica 10/19/2009 FRANKY MARKETING PRODUCTION SPECIALIST, LETTY S 724.3 Sciatica 10/19/2009 MUNA SAUNDERS, NATHALIE 724.3 Sciatica 10/19/2009 [facility], [facility] 724.3 Sciatica 10/19/2009 MUNA SAUNDERS, NATHALIE 724.3 Sciatica 10/19/2009 [facility], [facility] 724.3 Sciatica 10/19/2009 [facility], [facility] 724.3 Sciatica 10/19/2009 [facility], [facility] 724.3 Sciatica 10/19/2009 WANG MARKETING PRODUCTION SPECIALIST, ROBERT 724 .3 Sciatica 10/19/2009 WANG MARKETING PRODUCTION SPECIALIST, ROBERT 724 .3 Sciatica 10/19/2009 FRANKY MARKETING PRODUCTION SPECIALIST, LETTY S 724.3 Sciatica 10/19/2009 [facility], [facility] 724.3 Sciatica 10/19/2009 [facility], [facility] 724.3 Sciatica 10/19/2009 WANG MARKETING PRODUCTION SPECIALIST, ROBERT 724 .3 Sciatica 10/19/2009 [facility], [facility] 724.3 Sciatica 10/19/2009 FRANKY MARKETING PRODUCTION SPECIALIST, LETTY S 724.3 Sciatica 10/19/2009 [facility], [facility] 724.3 Sciatica 10/19/2009 [facility], [facility] 724.3 Sciatica 10/19/2009 [facility], [facility] 724.3 Sciatica 10/19/2009 [facility] DDS, WILLARD N 724.3 Sciatica 08/22/2010 [facility] DDS, WILLARD N 424.0 MITRAL VALVE DISORDERS 08/22/2010 [facility] DDS, WILLARD N 461.8 Other Acute Sinusitis 08/22/2010 [facility], [facility] 424.0 MITRAL VALVE DISORDERS 08/22/2010 [facility], [facility] 461.8 Other Acute Sinusitis 08/22/2010 424.0 MITR AL VALVE DISORDERS 08/22/2010 461.8 Othe r Acute Sinusitis 08/22/2010 424.0 MITR AL VALVE DISORDERS 08/22/2010 461.8 Othe r Acute Sinusitis 08/22/2010 [facility], [facility] 424.0 MITRAL VALVE DISORDERS 08/22/2010 [facility], [facility] 461.8 Other Acute Sinusitis 08/22/2010 424.0 MITR AL VALVE DISORDERS 08/22/2010 461.8 Othe r Acute Sinusitis 08/22/2010 424.0 MITR AL VALVE DISORDERS 08/22/2010 461.8 Othe r Acute Sinusitis 08/22/2010 424.0 MITR AL VALVE DISORDERS 08/22/2010 461.8 Othe r Acute Sinusitis 08/22/2010 424.0 MITR AL VALVE DISORDERS 08/22/2010 461.8 Othe r Acute Sinusitis 08/22/2010 424.0 MITR AL VALVE DISORDERS 08/22/2010 461.8 Othe r Acute Sinusitis 08/22/2010 424.0 MITR AL VALVE DISORDERS 08/22/2010 461.8 Othe r Acute Sinusitis 08/22/2010 424.0 MITR AL VALVE DISORDERS 08/22/2010 461.8 Othe r Acute Sinusitis 08/22/2010 424.0 MITR AL VALVE DISORDERS 08/22/2010 461.8 Othe r Acute Sinusitis 08/22/2010 424.0 MITR AL VALVE DISORDERS 08/22/2010 461.8 Othe r Acute Sinusitis 08/22/2010 [facility], [facility] 424.0 MITRAL VALVE DISORDERS 08/22/2010 [facility], [facility] 461.8 Other [facility] MITRAL VALVE DISORDERS 08/22/2010 [facility], [facility] 461.8 Other Acute Sinusitis 08/22/2010 [facility], [facility] 424.0 MITRAL VALVE DISORDERS 08/22/2010 [facility], [facility] 461.8 Other Acute Sinusitis 08/22/2010 NATHALIE TORO MD 424.0 MITRAL VALVE DISORDERS 08/22/2010 NATHALIE TORO MD 461.8 Other Acute Sinusitis 08/22/2010 [facility], [facility] 424.0 MITRAL VALVE DISORDERS 08/22/2010 [facility] 461.8 Other Acute Sinusitis 08/22/2010 COBB JR, EDUARDO S 424.0 MITRAL VALVE DISORDERS 08/22/2010 COBB JR, EDUARDO S 461.8 Other Acute Sinusitis 08/22/2010 [facility], [facility] 424.0 MITRAL VALVE DISORDERS 08/22/2010 [facility], [facility] 461.8 Other Acute Sinusitis 08/22/2010 [facility], [facility] 424.0 MITRAL VALVE DISORDERS 08/22/2010 [facility], [facility] 461.8 Other Acute Sinusitis 08/22/2010 FRANKY MARKETING PRODUCTION SPECIALIST, LETTY S 424.0 MITRAL VALVE DISORDERS 08/22/2010 FRANKYJORDAN DAY, LETTY S 461.8 Other Acute Sinusitis 08/22/2010 NATHALIE TORO MD 424.0 MITRAL VALVE DISORDERS 08/22/2010 NATHALIE TORO MD 461.8 Other Acute Sinusitis 08/22/2010 [facility], [facility] 424.0 MITRAL VALVE DISORDERS 08/22/2010 [facility], [facility] 461.8 Other Acute Sinusitis 08/22/2010 NATHALIE TORO MD 424.0 MITRAL VALVE DISORDERS 08/22/2010 NATHALIE TORO MD 461.8 Other Acute Sinusitis 08/22/2010 [facility], [facility] 424.0 MITRAL VALVE DISORDERS 08/22/2010 [facility], [facility] 461.8 Other Acute Sinusitis 08/22/2010 [facility], [facility] 424.0 MITRAL VALVE DISORDERS 08/22/2010 [facility], [facility] 461.8 Other Acute Sinusitis 08/22/2010 [facility], [facility] 424.0 MITRAL VALVE DISORDERS 08/22/2010 [facility], [facility] 461.8 Other Acute Sinusitis 08/22/2010 WANG MARKETING PRODUCTION SPECIALIST, ROBERT 424 .0 MITRAL VALVE DISORDERS 08/22/2010 WANG MARKETING PRODUCTION SPECIALIST, ROBERT 461 .8 Other Acute Sinusitis 08/22/2010 WANG MARKETING PRODUCTION SPECIALIST, ROBERT 424 .0 MITRAL VALVE DISORDERS 08/22/2010 WANG MARKETING PRODUCTION SPECIALIST, ROBERT 461 .8 Other Acute Sinusitis 08/22/2010 FRANKY MARKETING PRODUCTION SPECIALIST, LETTY S 424.0 MITRAL VALVE DISORDERS 08/22/2010 FRANKY MARKETING PRODUCTION SPECIALIST, LETTY S 461.8 Other Acute Sinusitis 08/22/2010 [facility], [facility] 424.0 MITRAL VALVE DISORDERS 08/22/2010 [facility], [facility] 461.8 Other Acute Sinusitis 08/22/2010 [facility], [facility] 424.0 MITRAL VALVE DISORDERS 08/22/2010 [facility], [facility] 461.8 Other Acute Sinusitis 08/22/2010 WANG MARKETING PRODUCTION SPECIALIST, RBOERT 424 .0 MITRAL VALVE DISORDERS 08/22/2010 WANG MARKETING PRODUCTION SPECIALIST, ROBERT 461 .8 Other Acute Sinusitis 08/22/2010 [facility], [facility] 424.0 MITRAL VALVE DISORDERS 08/22/2010 [facility], [facility] 461.8 Other Acute Sinusitis 08/22/2010 FRANKY MARKETING PRODUCTION SPECIALIST, LETTY S 424.0 MITRAL VALVE DISORDERS 08/22/2010 FRANKY MARKETING PRODUCTION SPECIALIST, LETTY S 461.8 Other Acute Sinusitis 08/22/2010 [facility], [facility] 424.0 MITRAL VALVE DISORDERS 08/22/2010 [facility], [facility] 461.8 Other Acute Sinusitis 08/22/2010 [facility], [facility] 424.0 MITRAL VALVE DISORDERS 08/22/2010 [facility], [facility] 461.8 Other Acute Sinusitis 08/22/2010 [facility], [facility] 424.0 MITRAL VALVE DISORDERS 08/22/2010 [facility], [facility] 461.8 Other Acute Sinusitis 08/22/2010 [facility] D[facility], WILLARD N 424.0 MITRAL VALVE DISORDERS 08/22/2010 [facility] DDS, WILLARD N 461.8 Other Acute Sinusitis 08/29/2010 [facility] D[facility], WILLARD N 401.9 HYPERTENSION, UNSPECIFIED ESSENTIAL 08/29/2010 [facility] DDS, WILLARD N 786.50 Chest Pain 08/29/2010 [facility], [facility] 401.9 HYPERTENSION, UNSPECIFIED ESSENTIAL 08/29/2010 [facility], [facility] 786.50 Chest Pain 08/29/2010 401.9 HYPE RTENSION, UNSPECIFIED ESSENTIAL 08/29/[address] Pain 08/29/2010 401.9 HYPE RTENSION, UNSPECIFIED ESSENTIAL 08/29/[address] Pain 08/29/2010 [facility], [facility] 401.9 HYPERTENSION, UNSPECIFIED ESSENTIAL 08/29/2010 [facility], [facility] 786.50 Chest Pain 08/29/2010 401.9 HYPE RTENSION, UNSPECIFIED ESSENTIAL 08/29/[address] Pain 08/29/2010 401.9 HYPE RTENSION, UNSPECIFIED ESSENTIAL 08/29/[address] Pain 08/29/2010 401.9 HYPE RTENSION, UNSPECIFIED ESSENTIAL 08/29/[address] Pain 08/29/2010 401.9 HYPE RTENSION, UNSPECIFIED ESSENTIAL 08/29/[address] Pain 08/29/2010 401.9 HYPE RTENSION, UNSPECIFIED ESSENTIAL 08/29/[address] Pain 08/29/2010 401.9 HYPE RTENSION, UNSPECIFIED ESSENTIAL 08/29/[address] Pain 08/29/2010 401.9 HYPE RTENSION, UNSPECIFIED ESSENTIAL 08/29/[address] Pain 08/29/2010 401.9 HYPE RTENSION, UNSPECIFIED ESSENTIAL 08/29/[address] Pain 08/29/2010 401.9 HYPE RTENSION, UNSPECIFIED ESSENTIAL 08/29/[address] Pain 08/29/2010 [facility], [facility] 401.9 HYPERTENSION, UNSPECIFIED ESSENTIAL 08/29/2010 [facility], [facility] 786.50 Chest Pain 08/29/2010 [facility], [facility] 401.9 HYPERTENSION, UNSPECIFIED ESSENTIAL 08/29/2010 [facility], [facility] 786.50 Chest Pain 08/29/2010 [facility], [facility] 401.9 HYPERTENSION, UNSPECIFIED ESSENTIAL 08/29/2010 [facility], [facility] 786.50 Chest Pain 08/29/2010 NATHALIE TORO MD 401.9 HYPERTENSION, UNSPECIFIED ESSENTIAL 08/29/2010 NATHALIE TORO MD 786.5 0 Chest Pain 08/29/2010 [facility], [facility] 401.9 HYPERTENSION, UNSPECIFIED ESSENTIAL 08/29/2010 [facility], [facility] 786.50 Chest Pain 08/29/2010 EDUARDO COBB JR S 401.9 HYPERTENSION, UNSPECIFIED ESSENTIAL 08/29/2010 EDUARDO COBB JR S 786.50 Chest Pain 08/29/2010 [facility], [facility] 401.9 HYPERTENSION, UNSPECIFIED ESSENTIAL 08/29/2010 [facility], [facility] 786.50 Chest Pain 08/29/2010 [facility], [facility] 401.9 HYPERTENSION, UNSPECIFIED ESSENTIAL 08/29/2010 [facility], [facility] 786.50 Chest Pain 08/29/2010 FRANKY MARKETING PRODUCTION SPECIALIST, LETTY S 401.9 HYPERTENSION, UNSPECIFIED ESSENTIAL 08/29/2010 FRANKY MARKETING PRODUCTION SPECIALIST, LETTY S 786.50 Chest Pain 08/29/2010 NATHALIE TORO MD 401.9 HYPERTENSION, UNSPECIFIED ESSENTIAL 08/29/2010 NATHALIE TORO MD 786.5 0 Chest Pain 08/29/2010 [facility], [facility] 401.9 HYPERTENSION, UNSPECIFIED ESSENTIAL 08/29/2010 [facility], [facility] 786.50 Chest Pain 08/29/2010 NATHALIE TORO MD 401.9 HYPERTENSION, UNSPECIFIED ESSENTIAL 08/29/2010 NATHALIE TORO MD 786.5 0 Chest Pain 08/29/2010 [facility], [facility] 401.9 HYPERTENSION, UNSPECIFIED ESSENTIAL 08/29/2010 [facility], [facility] 786.50 Chest Pain 08/29/2010 [facility], [facility] 401.9 HYPERTENSION, UNSPECIFIED ESSENTIAL 08/29/2010 [facility], [facility] 786.50 Chest Pain 08/29/2010 [facility], [facility] 401.9 HYPERTENSION, UNSPECIFIED ESSENTIAL 08/29/2010 [facility], [facility] 786.50 Chest Pain 08/29/2010 WANG MARKETING PRODUCTION SPECIALIST, ROBERT 401 .9 HYPERTENSION, UNSPECIFIED ESSENTIAL 08/29/2010 WANG MARKETING PRODUCTION SPECIALIST, ROBERT 786 .50 Chest Pain 08/29/2010 WANG MARKETING PRODUCTION SPECIALIST, ROBERT 401 .9 HYPERTENSION, UNSPECIFIED ESSENTIAL 08/29/2010 WANG MARKETING PRODUCTION SPECIALIST, ROBERT 786 .50 Chest Pain 08/29/2010 FRANKY MARKETING PRODUCTION SPECIALIST, LETTY S 401.9 HYPERTENSION, UNSPECIFIED ESSENTIAL 08/29/2010 FRANKY MARKETING PRODUCTION SPECIALIST, LETTY S 786.50 Chest Pain 08/29/2010 [facility], [facility] 401.9 HYPERTENSION, UNSPECIFIED ESSENTIAL 08/29/2010 [facility], [facility] 786.50 Chest Pain 08/29/2010 [facility], [facility] 401.9 HYPERTENSION, UNSPECIFIED ESSENTIAL 08/29/2010 [facility], [facility] 786.50 Chest Pain 08/29/2010 WANG MARKETING PRODUCTION SPECIALIST, ROBERT 401 .9 HYPERTENSION, UNSPECIFIED ESSENTIAL 08/29/2010 WANG MARKETING PRODUCTION SPECIALIST, ROBERT 786 .50 Chest Pain 08/29/2010 [facility], [facility] 401.9 HYPERTENSION, UNSPECIFIED ESSENTIAL 08/29/2010 [facility] 786.50 Chest Pain 08/29/2010 FRANKY MARKETING PRODUCTION SPECIALIST, LETTY S 401.9 HYPERTENSION, UNSPECIFIED ESSENTIAL 08/29/2010 FRANKY MARKETING PRODUCTION SPECIALIST, LETTY S 786.50 Chest Pain 08/29/2010 [facility], [facility] 401.9 HYPERTENSION, UNSPECIFIED ESSENTIAL 08/29/2010 [facility] 786.50 Chest Pain 08/29/2010 [facility] 401.9 HYPERTENSION, UNSPECIFIED ESSENTIAL 08/29/2010 [facility] 786.50 Chest Pain 08/29/2010 [facility] 401.9 HYPERTENSION, UNSPECIFIED ESSENTIAL 08/29/2010 [facility] 786.50 Chest Pain 08/29/2010 [facility] DDS, WILLARD N 401.9 HYPERTENSION, UNSPECIFIED ESSENTIAL 08/29/2010 [facility] DDS, WILLARD N 786.50 Chest Pain 08/30/2010 Ot 300.00 ANX IETY STATE NOS 08/30/2010 Ot 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 08/30/2010 Ot 346.90 ARNAUD ANGELIKA UNSPECIFIED W/O INTRACT MGRN W/ 08/30/2010 Ot 401.9 HYPE RTENSION NOS 08/30/2010 Ot 424.0 MITR AL VALVE DISORDER 08/30/2010 Ot 455.0 INT HEMORRHOID W/O COMPL 08/30/2010 Ot 455.3 EXT HEMORRHOID W/O COMPL 08/30/2010 Ot 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 08/30/2010 Ot 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2 Sync ope And Collapse 10/31/2010 780.2 Sync ope And Collapse 10/31/2010 780.2 Sync ope And Collapse 10/31/2010 [facility], [facility] 780.2 Syncope And Collapse 10/31/2010 [facility], [facility] 780.2 Syncope And Collapse 10/31/2010 [facility] 780.2 Syncope And Collapse 10/31/2010 NATHALIE TORO MD 780.2 Syncope And Collapse 10/31/2010 [facility] 780.2 Syncope And Collapse 10/31/2010 EDUARDO COBB JR 780.2 Syncope And Collapse 10/31/2010 [facility] 780.2 Syncope And Collapse 10/31/2010 [facility] 780.2 Syncope And Collapse 10/31/2010 LETTY WILKINS APRN S 780.2 Syncope And Collapse 10/31/2010 NATHALIE TORO MD 780.2 Syncope And Collapse 10/31/2010 [facility], [facility] 780.2 Syncope And Collapse 10/31/2010 NATHALIE TORO MD 780.2 Syncope And Collapse 10/31/2010 [facility], [facility] 780.2 Syncope And Collapse 10/31/2010 [facility], [facility] 780.2 Syncope And Collapse 10/31/2010 [facility], [facility] 780.2 Syncope And Collapse 10/31/2010 WANG MARKETING PRODUCTION SPECIALIST, ROBERT 780 .2 Syncope And Collapse 10/31/2010 WANG MARKETING PRODUCTION SPECIALIST, ROBERT 780 .2 Syncope And Collapse 10/31/2010 FRANKY MARKETING PRODUCTION SPECIALIST, LETTY S 780.2 Syncope And Collapse 10/31/2010 [facility], [facility] 780.2 Syncope And Collapse 10/31/2010 [facility], [facility] 780.2 Syncope And Collapse 10/31/2010 WANG MARKETING PRODUCTION SPECIALIST, ROBERT 780 .2 Syncope And Collapse 10/31/2010 [facility], [facility] 780.2 Syncope And Collapse 10/31/2010 FRANKY MARKETING PRODUCTION SPECIALIST, LETTY S 780.2 Syncope And Collapse 10/31/2010 [facility], [facility] 780.2 Syncope And Collapse 10/31/2010 [facility], [facility] 780.2 Syncope And Collapse 10/31/2010 [facility], [facility] 780.2 Syncope And Collapse 10/31/2010 [facility] DDS, WILLARD N 780.2 Syncope And Collapse 01/10/2011 [facility] DDS, WILLARD N 305.1 Nicotine Dependence 01/10/2011 [facility] DDS, WILLARD N 380.10 Otitis Externa 01/10/2011 MUOG[facility] DDS, WILLARD N 382.9 Otitis Media 01/10/2011 [facility], [facility] 305.1 Nicotine Dependence 01/10/2011 [facility], [facility] 380.10 Otitis Externa 01/10/2011 [facility], [facility] 382.9 Otitis Media 01/10/2011 305.1 [place]a Dependence 01/10/2011 380.10 Nicole tis Externa 01/10/2011 382.9 Otit is Media 01/10/2011 305.1 [place]a Dependence 01/10/2011 380.10 Nicole tis Externa 01/10/2011 382.9 Otit is Media 01/10/2011 [facility], [facility] 305.1 Nicotine Dependence 01/10/2011 [facility], [facility] 380.10 Otitis Externa 01/10/2011 [facility], [facility] 382.9 Otitis Media 01/10/2011 305.1 [place] luca Dependence 01/10/2011 380.10 Nicole tis Externa 01/10/2011 382.9 Otit is Media 01/10/2011 305.1 [place] luca Dependence 01/10/2011 380.10 Nicole tis Externa 01/10/2011 382.9 Otit is Media 01/10/2011 305.1 [place] luca Dependence 01/10/2011 380.10 Nicole tis Externa 01/10/2011 382.9 Otit is Media 01/10/2011 305.1 [place] luca Dependence 01/10/2011 380.10 Nicole tis Externa 01/10/2011 382.9 Otit is Media 01/10/2011 305.1 [place] luca Dependence 01/10/2011 380.10 Nicole tis Externa 01/10/2011 382.9 Otit is Media 01/10/2011 305.1 [place] luca Dependence 01/10/2011 380.10 Nicole tis Externa 01/10/2011 382.9 Otit is Media 01/10/2011 305.1 [place] luca Dependence 01/10/2011 380.10 Nicole tis Externa 01/10/2011 382.9 Otit is Media 01/10/2011 305.1 [place] luca Dependence 01/10/2011 380.10 Nicole tis Externa 01/10/2011 382.9 Otit is Media 01/10/2011 305.1 [place] luca Dependence 01/10/2011 380.10 Nicole tis Externa 01/10/2011 382.9 Otit is Media 01/10/2011 [facility], [facility] 305.1 Nicotine Dependence 01/10/2011 [facility], [facility] 380.10 Otitis Externa 01/10/2011 [facility], [facility] 382.9 Otitis Media 01/10/2011 [facility], [facility] 305.1 Nicotine Dependence 01/10/2011 [facility], [facility] 380.10 Otitis Externa 01/10/2011 [facility], [facility] 382.9 Otitis Media 01/10/2011 [facility], [facility] 305.1 Nicotine Dependence 01/10/2011 [facility], [facility] 380.10 Otitis Externa 01/10/2011 [facility], [facility] 382.9 Otitis Media 01/10/2011 NATHALIE TORO MD 305.1 Nicotine Dependence 01/10/2011 NATHAILE TORO MD 380.1 0 Otitis Externa 01/10/2011 NATHALIE TORO MD 382.9 Otitis Media 01/10/2011 [facility], [facility] 305.1 Nicotine Dependence 01/10/2011 [facility], [facility] 380.10 Otitis Externa 01/10/2011 [facility], [facility] 382.9 Otitis Media 01/10/2011 REZA ZAPATA EDUARDO S 305.1 Nicotine Dependence 01/10/2011 EDUARDO COBB JR S 380.10 Otitis Externa 01/10/2011 EDUARDO COBB JR S 382.9 Otitis Media 01/10/2011 [facility], KVNG R 305.1 Nicotine Dependence 01/10/2011 [facility], KVNG R 380.10 Otitis Externa 01/10/2011 [facility], KVNG R 382.9 Otitis Media 01/10/2011 [facility], KVNG R 305.1 Nicotine Dependence 01/10/2011 [facility], KVNG R 380.10 Otitis Externa 01/10/2011 [facility], KVNG R 382.9 Otitis Media 01/10/2011 FRANKY DAY LETTY S 305.1 Nicotine Dependence 01/10/2011 [employer], LETTY S 380.10 Otitis Externa 01/10/2011 FRANKY DAY LETTY S 382.9 Otitis Media 01/10/2011 NATHALIE TORO MD 305.1 Nicotine Dependence 01/10/2011 NATHALIE TORO MD 380.1 0 Otitis Externa 01/10/2011 NATHALIE TORO MD 382.9 Otitis Media 01/10/2011 [facility], KVNG R 305.1 Nicotine Dependence 01/10/2011 [facility], KVNG R 380.10 Otitis Externa 01/10/2011 [facility], KVNG R 382.9 Otitis Media 01/10/2011 NATHALIE TORO MD 305.1 Nicotine Dependence 01/10/2011 NATHALIE TORO MD 380.1 0 Otitis Externa 01/10/2011 NATHALIE TORO MD 382.9 Otitis Media 01/10/2011 [facility], KVNG R 305.1 Nicotine Dependence 01/10/2011 [facility], KVNG R 380.10 Otitis Externa 01/10/2011 [facility], KVNG R 382.9 Otitis Media 01/10/2011 [facility], KVNG R 305.1 Nicotine Dependence 01/10/2011 [facility], KVNG R 380.10 Otitis Externa 01/10/2011 [facility], KVNG R 382.9 Otitis Media 01/10/2011 [facility], KVNG R 305.1 Nicotine Dependence 01/10/2011 [facility], KVNG R 380.10 Otitis Externa 01/10/2011 [facility], KVNG R 382.9 Otitis Media 01/10/2011 [employer], ROBERT 305 .1 Nicotine Dependence 01/10/2011 [employer], ROBERT 380 .10 Otitis Externa 01/10/2011 [employer], ROBERT 382 .9 Otitis Media 01/10/2011 [employer], ROBERT 305 .1 Nicotine Dependence 01/10/2011 [employer], ROBERT 380 .10 Otitis Externa 01/10/2011 [employer], ROBERT 382 .9 Otitis Media 01/10/2011 [employer], LETTY S 305.1 Nicotine Dependence 01/10/2011 [employer], LETTY S 380.10 Otitis Externa 01/10/2011 [employer], LETTY S 382.9 Otitis Media 01/10/2011 [facility], KVNG R 305.1 Nicotine Dependence 01/10/2011 [facility], KVNG R 380.10 Otitis Externa 01/10/2011 [facility], KVNG R 382.9 Otitis Media 01/10/2011 [facility], KVNG R 305.1 Nicotine Dependence 01/10/2011 [facility], KVNG R 380.10 Otitis Externa 01/10/2011 [facility], KVGN R 382.9 Otitis Media 01/10/2011 WANG [employer] PR[employer] SPECIALIST, ROBERT 305 .1 Nicotine Dependence 01/10/2011 WANG MARKET[employer] PRODUCTION SPECIALIST, ROBERT 380 .10 Otitis Externa 01/10/2011 WANG [employer] PRODUCTION SPECIALIST, ROBERT 382 .9 Otitis Media 01/10/2011 [facility], KVNG R 305.1 Nicotine Dependence 01/10/2011 [facility], KVNG R 380.10 Otitis Externa 01/10/2011 [facility], KVNG R 382.9 Otitis Media 01/10/2011 [employer] SPECIALIST, LETTY S 305.1 Nicotine Dependence 01/10/2011 [employer] PRODUCTION SPECIALIST, LETTY S 380.10 Otitis Externa 01/10/2011 [employer] SPECIALIST, LETTY S 382.9 Otitis Media 01/10/2011 [facility] [...] Unspecified Disorder Of The Teeth And Supporting Struc tures [facility]2011 [facility] 525.9 Unspecified Disorder Of The Teeth And Supporting Struc tures 04/19/2011 525.9 Unsp ecified 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 04/19/2011 525.9 Unsp ecified 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 04/19/2011 [facility] 525.9 Unspecified Disorder Of The Teeth And Supporting Struc tures 04/19/2011 525.9 Unsp ecified 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 04/19/2011 525.9 Unsp ecified 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 04/19/2011 525.9 Unsp ecified 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 04/19/2011 525.9 Unsp ecified 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 04/19/2011 525.9 Unsp ecified 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 04/19/2011 525.9 Unsp ecified 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 04/19/2011 525.9 Unsp ecified 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 04/19/2011 525.9 Unsp ecified 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 04/19/2011 525.9 Unsp ecified 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 04/19/2011 [facility], KVNG R 525.9 Unspecified Disorder Of The Teeth And Supporting Struc tures 04/19/2011 [facility], KVNG R 525.9 Unspecified Disorder Of The Teeth And Supporting Struc tures 04/19/2011 [facility], KVNG R 525.9 Unspecified Disorder Of The Teeth And Supporting Struc tures 04/19/2011 NATHALIE TORO MD 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 04/19/2011 [facility], KVNG R 525.9 Unspecified Disorder Of The Teeth And Supporting Struc tures 04/19/2011 EDUARDO COBB JR 525.9 Unspecified Disorder Of The Teeth And Supporting Struc tures 04/19/2011 [facility], KVNG R 525.9 Unspecified Disorder Of The Teeth And Supporting Struc tures 04/19/2011 [facility], KVNG R 525.9 Unspecified Disorder Of The Teeth And Supporting Struc tures 04/19/2011 LETTY WILKINS APRN 525.9 Unspecified Disorder Of The Teeth And Supporting Struc tures 04/19/2011 NATHALIE TORO MD 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 04/19/2011 [facility], KVNG R 525.9 Unspecified Disorder Of The Teeth And Supporting Struc tures 04/19/2011 NATHALIE TORO MD 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 04/19/2011 [facility], KVNG R 525.9 Unspecified Disorder Of The Teeth And Supporting Struc tures 04/19/2011 [facility], KVNG R 525.9 Unspecified Disorder Of The Teeth And Supporting Struc tures 04/19/2011 [facility], KVNG R 525.9 Unspecified Disorder Of The Teeth And Supporting Struc tures 04/19/2011 W[employer]ODUCTION SPECIALIST, ROBERT 525 .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 04/19/2011 WANG [employer]ODUCTION SPECIALIST ROBERT 525 .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 04/19/2011 FRANKY MARKETING PRODUCTION SPECIALISTLETTY Vazquez S 525.9 Unspecified Disorder Of The Teeth And Supporting Struc tures 04/19/2011 [facility], KVNG R 525.9 Unspecified Disorder Of The Teeth And Supporting Struc tures 04/19/2011 [facility] 525.9 Unspecified Disorder Of The Teeth And Supporting Struc tures 04/19/2011 WANG MARKETING PRODUCTION SPECIALISTSHIRAROBERT 525 .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 04/19/2011 [facility], KVNG R 525.9 Unspecified Disorder Of The Teeth And Supporting Struc tures 04/19/2011 LETTY WILKINS APRN S 525.9 Unspecified Disorder Of The Teeth And Supporting Struc tures 04/19/2011 [facility], KVNG R 525.9 Unspecified Disorder Of The Teeth And Supporting Struc tures 04/19/2011 [facility], KVNG R 525.9 Unspecified Disorder Of The Teeth And Supporting Struc tures 04/19/2011 [facility], KVNG R 525.9 Unspecified Disorder Of The Teeth And Supporting Struc tures 04/19/2011 [facility], WILLARD N 525.9 Unspecified Disorder Of The Teeth And Supporting Struc tures 06/17/2011 [facility], WILLARD N 787.01 NAUSEA WITH VOMITING 06/17/2011 [facility], WILLARD N V04.81 Flu Dx (3 Yrs And Above, Im) 06/17/2011 [facility], KVNG R 787.01 NAUSEA WITH VOMITING 06/17/2011 [facility], KVNG R V04.81 Flu Dx (3 Yrs And Above, Im) 06/17/2011 787.01 AMRIT SEA WITH VOMITING 06/17/2011 V04.81 Flu Dx (3 Yrs And Above, Im) 06/17/2011 787.01 AMRIT SEA WITH VOMITING 06/17/2011 V04.81 Flu Dx (3 Yrs And Above, Im) 06/17/2011 [facility], KVNG R 787.01 NAUSEA WITH VOMITING 06/17/2011 [facility], KVNG R V04.81 Flu Dx (3 Yrs And Above, Im) 06/17/2011 787.01 AMRIT SEA WITH VOMITING 06/17/2011 V04.81 Flu Dx (3 Yrs And Above, Im) 06/17/2011 787.01 AMRIT SEA WITH VOMITING 06/17/2011 V04.81 Flu Dx (3 Yrs And Above, Im) 06/17/2011 787.01 AMRIT SEA WITH VOMITING 06/17/2011 V04.81 Flu Dx (3 Yrs And Above, Im) 06/17/2011 787.01 AMRIT SEA WITH VOMITING 06/17/2011 V04.81 Flu Dx (3 Yrs And Above, Im) 06/17/2011 787.01 AMRIT SEA WITH VOMITING 06/17/2011 V04.81 Flu Dx (3 Yrs And Above, Im) 06/17/2011 787.01 AMRIT SEA WITH VOMITING 06/17/2011 V04.81 Flu Dx (3 Yrs And Above, Im) 06/17/2011 787.01 AMRIT SEA WITH VOMITING 06/17/2011 V04.81 Flu Dx (3 Yrs And Above, Im) 06/17/2011 787.01 AMRIT SEA WITH VOMITING 06/17/2011 V04.81 Flu Dx (3 Yrs And Above, Im) 06/17/2011 787.01 AMRIT SEA WITH VOMITING 06/17/2011 V04.81 Flu Dx (3 Yrs And Above, Im) 06/17/2011 [facility], KVNG R 787.01 NAUSEA WITH VOMITING 06/17/2011 [facility], KVNG R V04.81 Flu Dx (3 Yrs And Above, Im) 06/17/2011 [facility], KVNG R 787.01 NAUSEA WITH VOMITING 06/17/2011 [facility], KVNG R V04.81 Flu Dx (3 Yrs And Above, Im) 06/17/2011 [facility], KVNG R 787.01 NAUSEA WITH VOMITING 06/17/2011 [facility], KVNG R V04.81 Flu Dx (3 Yrs And Above, Im) 06/17/2011 NATHALIE TORO MD 787.0 1 NAUSEA WITH VOMITING 06/17/2011 NATHALIE TORO MD V04.8 1 Flu Dx (3 Yrs And Above, Im) [...] NAUSEA WITH VOMITING 06/17/2011 LETTY WILKINS APRN V04.81 Flu Dx (3 Yrs And Above, Im) 06/17/2011 NATHALIE TORO MD 787.0 1 NAUSEA WITH VOMITING 06/17/2011 NATHALIE TORO MD V04.8 1 Flu Dx (3 Yrs And Above, Im) 06/17/2011 [facility], KVNG R 787.01 NAUSEA WITH VOMITING 06/17/2011 [facility], KVNG R V04.81 Flu Dx (3 Yrs And Above, Im) 06/17/2011 NATHALIE TORO MD 787.0 1 NAUSEA WITH VOMITING 06/17/2011 NATHALIE TORO MD V04.8 1 Flu Dx (3 Yrs And Above, Im) [...] (3 Yrs And Above, Im) 06/17/2011 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 [employer]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 SPECIALIST, ROBERT 787 .01 NAUSEA WITH VOMITING 06/17/2011 WANG MARKET[employer] PRODUCTION SPECIALIST, ROBERT V04 .81 Flu Dx (3 Yrs And Above, Im) 06/17/2011 WANG MARKET[employer] PRODUCTION SPECIALIST, ROBERT 787 .01 NAUSEA WITH VOMITING 06/17/2011 WANG MARKETING PRODUCTION SPECIALIST, ROBERT V04 .81 Flu Dx (3 Yrs And Above, Im) 06/17/2011 FR[employer] PRODUCTION SPECIALIST, LETTY S 787.01 NAUSEA WITH VOMITING 06/17/2011 FRANKY MARKET[employer] PRODUCTION SPECIALIST, LETTY S V04.81 Flu Dx (3 Yrs And Above, Im) 06/17/2011 [facility], KVNG R 787.01 NAUSEA WITH VOMITING 06/17/2011 [facility], KVNG R V04.81 Flu Dx (3 Yrs And Above, Im) 06/17/2011 [facility], KVNG R 787.01 NAUSEA WITH VOMITING 06/17/2011 [facility], KVNG R V04.81 Flu Dx (3 Yrs And Above, Im) 06/17/2011 WANG MARKET[employer] PRODUCTION SPECIALIST, ROBERT 787 .01 NAUSEA WITH VOMITING 06/17/2011 WANG MARKETING PRODUCTION SPECIALIST, ROBERT V04 .81 Flu Dx (3 Yrs And Above, Im) 06/17/2011 [facility], KVNG R 787.01 NAUSEA WITH VOMITING 06/17/2011 [facility], KVNG R V04.81 Flu Dx (3 Yrs And Above, Im) 06/17/2011 FRANK[employer] PR[employer] SPECIALIST, LETTY S 787.01 NAUSEA WITH VOMITING 06/17/2011 ANTONIA WILKINS APRNNDA S V04.81 Flu Dx (3 Yrs And [...] N 611.72 Breast Lump Or Mass 06/24/2011 [facility], KVNG R 611.72 Breast Lump Or Mass 06/24/2011 611.72 Antonia ast [place] 06/24/2011 611.72 Antonia ast [place] 06/24/2011 [facility], KVNG R 611.72 Breast Lump Or Mass 06/24/2011 611.72 Antonia ast [place] 06/24/2011 611.72 Antonia ast [place] 06/24/2011 611.72 Antonia ast [place] 06/24/2011 611.72 Antonia ast [place] 06/24/2011 611.72 Antonia ast [place] 06/24/2011 611.72 Antonia ast [place] 06/24/2011 611.72 Antonia ast [place] 06/24/2011 611.72 Antonia ast [place] 06/24/2011 611.72 Antonia ast [place] 06/24/2011 [facility], KVNG R 611.72 Breast Lump Or Mass 06/24/2011 [facility], KVNG R 611.72 Breast Lump Or Mass 06/24/2011 [facility], KVNG R 611.72 Breast Lump Or [place] 06/24/2011 NATHALIE TORO MD 611.7 2 Breast Lump Or [place] 06/24/2011 [facility], KVNG R 611.72 Breast Lump Or [place] 06/24/2011 EDUARDO COBB JR S 611.72 Breast Lump Or [place] 06/24/2011 [facility], KVNG R 611.72 Breast L[place] Or [place] 06/24/2011 [facility], KVNG R 611.72 Breast L[place] 06/24/2011 LETTY WILKINS APRN S 611.72 Breast L[place] 06/24/2011 NATHALIE TORO MD 611.7 2 Breast L[place] 06/24/2011 [facility], KVNG R 611.72 Breast Lump Or [place] 06/24/2011 MUNA SAUNDERS, NATHALIE 611.7 2 Breast L[place] 06/24/2011 [facility], KVNG R 611.72 Breast Lump Or [place] 06/24/2011 [facility], KVNG R 611.72 Breast Lump Or [place] 06/24/2011 [facility], KVNG R 611.72 Breast Lump Or [place] 06/24/2011 WANG MARKET[employer] PRODUCTION SPECIALIST, ROBERT 611 .72 Breast Lump Or [place] 06/24/2011 WANG MARKETING PRODUCTION SPECIALIST, ROBERT 611 .72 Breast Lump Or Mass 06/24/2011 FR[employer] SPECIALIST, LETTY S 611.72 Breast Lump Or [place] 06/24/2011 [facility], KVNG R 611.72 Breast Lump Or [place] 06/24/2011 [facility] 611.72 Breast Lump Or [place] 06/24/2011 WANG MARKET[employer] PRODUCTION SPECIALIST, ROBERT 611 .72 Breast Lump Or Mass 06/24/2011 [facility], KVNG R 611.72 Breast Lump Or Mass 06/24/2011 FRANKY MARKET[employer] PRODUCTION SPECIALIST, LETTY S 611.72 Breast Lump Or Mass 06/24/2011 [facility] 611.72 Breast Lump Or Mass 06/24/2011 [facility] 611.72 Breast Lump Or Mass 06/24/2011 [facility] 611.72 Breast Lump Or Mass 06/24/2011 [facility], WILLARD N 611.72 Breast Lump Or Mass 07/01/2011 [facility], WILLARD N 783.21 Weight Loss 07/01/2011 [facility], WILLARD N 787.1 Heartburn 07/01/2011 [facility], WILLARD N 787.3 Gas/bloating Pain 07/01/2011 [facility], WILLARD N 789.00 Abdominal Pain Unspecified Site 07/01/2011 [facility], WILLARD N 789.06 Abdominal Pain Epigastric 07/01/2011 [facility] 783.21 Weight Loss 07/01/2011 [facility], KVNG R 787.1 Heartburn 07/01/2011 [facility], KVNG R 787.3 Gas/bloating Pain 07/01/2011 [facility], KV[facility] R 789.00 Abdominal Pain Unspecified Site 07/01/2011 [facility], KVNG R 789.06 Abdominal Pain Epigastric 07/01/2011 783.21 Chacorta ght Loss 07/01/2011 787.1 Hear tburn 07/01/2011 787.3 Gas/ bloating Pain 07/01/2011 789.00 Abd ominal Pain Unspecified Site 07/01/2011 789.06 Abd ominal Pain Epigastric 07/01/2011 783.21 Chacorta ght Loss 07/01/2011 787.1 Hear tburn 07/01/2011 787.3 Gas/ bloating Pain 07/01/2011 789.00 Abd ominal Pain Unspecified Site 07/01/2011 789.06 Abd ominal Pain Epigastric 07/01/2011 [facility], KVNG R 783.21 Weight Loss 07/01/2011 [facility], KVNG R 787.1 Heartburn 07/01/2011 [facility], KVNG R 787.3 Gas/bloating Pain 07/01/2011 [facility], KVNG R 789.00 Abdominal Pain Unspecified Site 07/01/2011 [facility], KVNG R 789.06 Abdominal Pain Epigastric 07/01/2011 783.21 Chacorta ght Loss 07/01/2011 787.1 Hear tburn 07/01/2011 787.3 Gas/ bloating Pain 07/01/2011 789.00 Abd ominal Pain Unspecified Site 07/01/2011 789.06 Abd ominal Pain Epigastric 07/01/2011 783.21 Chacorta ght Loss 07/01/2011 787.1 Hear tburn 07/01/2011 787.3 Gas/ bloating Pain 07/01/2011 789.00 Abd ominal Pain Unspecified Site 07/01/2011 789.06 Abd ominal Pain Epigastric 07/01/2011 783.21 Chacorta ght Loss 07/01/2011 787.1 Hear tburn 07/01/2011 787.3 Gas/ bloating Pain 07/01/2011 789.00 Abd ominal Pain Unspecified Site 07/01/2011 789.06 Abd ominal Pain Epigastric 07/01/2011 783.21 Chacorta ght Loss 07/01/2011 787.1 Hear tburn 07/01/2011 787.3 Gas/ bloating Pain 07/01/2011 789.00 Abd ominal Pain Unspecified Site 07/01/2011 789.06 Abd ominal Pain Epigastric 07/01/2011 783.21 Chacorta ght Loss 07/01/2011 787.1 Hear tburn 07/01/2011 787.3 Gas/ bloating Pain 07/01/2011 789.00 Abd ominal Pain Unspecified Site 07/01/2011 789.06 Abd ominal Pain Epigastric 07/01/2011 783.21 Chacorta ght Loss 07/01/2011 787.1 Hear tburn 07/01/2011 787.3 Gas/ bloating Pain 07/01/2011 789.00 Abd ominal Pain Unspecified Site 07/01/2011 789.06 Abd ominal Pain Epigastric 07/01/2011 783.21 Chacorta ght Loss 07/01/2011 787.1 Hear tburn 07/01/2011 787.3 Gas/ bloating Pain 07/01/2011 789.00 Abd ominal Pain Unspecified Site 07/01/2011 789.06 Abd ominal Pain Epigastric 07/01/2011 783.21 Chacorta ght Loss 07/01/2011 787.1 Hear tburn 07/01/2011 787.3 Gas/ bloating Pain 07/01/2011 789.00 Abd ominal Pain Unspecified Site 07/01/2011 789.06 Abd ominal Pain Epigastric 07/01/2011 783.21 Chacorta ght Loss 07/01/2011 787.1 Hear tburn 07/01/2011 787.3 Gas/ bloating Pain 07/01/2011 789.00 Abd ominal Pain Unspecified Site 07/01/2011 789.06 Abd ominal Pain Epigastric [facility]/01[facility]2011 [facility]01[facility]2011 [facility] 787.1 Heartburn 07/01/2011 [facility] 787.3 Gas/bloating Pain 07/01/2011 [facility], KVNG [...] Abdominal Pain Epigastric 07/01/2011 NATHALIE TORO MD 783.2 1 Weight Loss 07/01/2011 NATHALIE TORO MD 787.1 Heartburn 07/01/2011 NATHALIE TORO MD 787.3 Gas/bloating Pain 07/01/2011 NATHALIE TORO MD 789.0 0 Abdominal Pain Unspecified Site 07/01/2011 NATHALIE TORO MD 789.0 6 Abdominal Pain Epigastric 07/01/2011 [facility], KVNG R 783.21 Weight Loss 07/01/2011 [facility], KVNG R 787.1 Heartburn 07/01/2011 [facility], KVNG R 787.3 Gas/bloating Pain 07/01/2011 [facility], KVNG R 789.00 Abdominal Pain Unspecified Site 07/01/2011 [facility], KVNG R 789.06 Abdominal Pain Epigastric 07/01/2011 EDUARDO COBB JR 783.21 Weight Loss 07/01/2011 EDUARDO COBB JR 787.1 Heartburn 07/01/2011 EDUARDO COBB JR 787.3 Gas/bloating Pain 07/01/2011 EDUARDO COBB JR 789.00 Abdominal Pain Unspecified Site 07/01/2011 EDUARDO COBB JR S 789.06 Abdominal Pain Epigastric 07/01/2011 [facility] [...] KVNG R 789.06 Abdominal Pain Epigastric 07/01/2011 FRANKYSAFIA DAY LETTY S 783.21 Weight Loss 07/01/2011 [employer] SPECIALIST, LETTY S 787.1 Heartburn 07/01/2011 FRANK[employer] MARKET[employer] PRODUCTION SPECIALIST, LETTY S 787.3 Gas/bloating Pain 07/01/2011 FRANK[employer] MARKET[employer] PRODUCTION SPECIALIST, LETTY S 789.00 Abdominal Pain Unspecified Site 07/01/2011 FRANK[employer] MARKET[employer] PRODUCTION SPECIALIST, LETTY S 789.06 Abdominal Pain Epigastric 07/01/2011 NATHALIE TORO MD 783.2 1 Weight Loss 07/01/2011 NATHALIE TORO MD 787.1 Heartburn 07/01/2011 NATHALIE TORO MD 787.3 Gas/bloating Pain 07/01/2011 NATHALIE TORO MD 789.0 0 Abdominal Pain Unspecified Site 07/01/2011 NATHALIE TORO MD 789.0 6 Abdominal Pain Epigastric 07/01/2011 [facility], KVNG R 783.21 Weight Loss 07/01/2011 [facility], KVNG R 787.1 Heartburn 07/01/2011 [facility], KVNG R 787.3 Gas/bloating Pain 07/01/2011 [facility], KVNG R 789.00 Abdominal Pain Unspecified Site 07/01/2011 [facility], KVNG R 789.06 Abdominal Pain Epigastric 07/01/2011 NATHALIE TORO MD 783.2 1 Weight Loss 07/01/2011 NATHALIE TORO MD 787.1 Heartburn 07/01/2011 NATHALIE TORO MD 787.3 Gas/bloating Pain 07/01/2011 NATHALIE TORO MD 789.0 0 Abdominal Pain Unspecified Site 07/01/2011 NATHALIE TORO MD 789.0 6 Abdominal Pain Epigastric 07/01/2011 [facility], KVNG [...] R 789.06 Abdominal Pain Epigastric 07/01/2011 WANG [employer] SPECIALIST, ROBERT 783 .21 Weight Loss 07/01/2011 WANG MARKETING PRODUCTION SPECIALIST, ROBERT 787 .1 Heartburn 07/01/2011 WANG MARKETING PRODUCTION SPECIALIST, ROBERT 787 .3 Gas/bloating Pain 07/01/2011 WANG MARKETING PRODUCTION SPECIALIST, ROBERT 789 .00 Abdominal Pain Unspecified Site 07/01/2011 WANG MARKETING PRODUCTION SPECIALIST, ROBERT 789 .06 Abdominal Pain Epigastric 07/01/2011 WANG MARKETING PRODUCTION SPECIALIST, ROBERT 783 .21 Weight Loss 07/01/2011 WANG MARKETING PRODUCTION SPECIALIST, ROBERT 787 .1 Heartburn 07/01/2011 WANG MARKETING PRODUCTION SPECIALIST, ROBERT 787 .3 Gas/bloating Pain 07/01/2011 WANG MARKETING PRODUCTION SPECIALIST, ROBERT 789 .00 Abdominal Pain Unspecified Site 07/01/2011 WANG MARKETING PRODUCTION SPECIALIST, ROBERT 789 .06 Abdominal Pain Epigastric 07/01/2011 FRANK[employer] MARKET[employer] PRODUCTION SPECIALIST, LETTY S 783.21 Weight Loss 07/01/2011 FRANKY MARKETING PRODUCTION SPECIALIST, LETTY S 787.1 Heartburn 07/01/2011 FRANKY MARKETING PRODUCTION SPECIALIST, LETTY S 787.3 Gas/bloating Pain 07/01/2011 FRANK[employer] MARKET[employer] PRODUCTION SPECIALIST, LETTY S 789.00 Abdominal Pain Unspecified Site 07/01/2011 FRANK[employer] MARKETING PRODUCTION SPECIALIST, ELTTY S 789.06 Abdominal Pain Epigastric 07/01/2011 [facility] [...] R 789.06 Abdominal Pain Epigastric 07/01/2011 WANG MARKETING PRODUCTION SPECIALIST, ROBERT 783 .21 Weight Loss 07/01/2011 WANG MARKETING PRODUCTION SPECIALIST, ROBERT 787 .1 Heartburn 07/01/2011 WANG MARKETING PRODUCTION SPECIALIST, ROBERT 787 .3 Gas/bloating Pain 07/01/2011 WANG MARKETING PRODUCTION SPECIALIST, ROBERT 789 .00 Abdominal Pain Unspecified Site 07/01/2011 ROBERT PIÑA APRN 789 .06 Abdominal Pain Epigastric 07/01/2011 [facility], KVNG R 783.21 Weight Loss 07/01/2011 [facility], KVNG R 787.1 Heartburn 07/01/2011 [facility], KVNG R 787.3 Gas/bloating Pain 07/01/2011 [facility], KVNG R 789.00 Abdominal Pain Unspecified Site 07/01/2011 [facility], KVNG R 789.06 Abdominal Pain Epigastric 07/01/2011 FR[employer] PRODUCTION SPECIALIST, LETTY S 783.21 Weight Loss 07/01/2011 FRANKY MARKETING PRODUCTION SPECIALIST, LETTY S 787.1 Heartburn 07/01/2011 FRANKY MARKETING PRODUCTION SPECIALIST, LETTY S 787.3 Gas/bloating Pain 07/01/2011 FRANKY MARKETING PRODUCTION SPECIALIST, LETTY S 789.00 Abdominal Pain Unspecified Site 07/01/2011 FRANKY MARKETING PRODUCTION SPECIALIST, LETTY S 789.06 Abdominal Pain Epigastric 07/01/2011 [...] 789.06 Abdominal Pain Epigastric 07/01/2011 [facility], KNVG R 783.21 Weight Loss 07/01/2011 [facility], KVNG R 787.1 Heartburn 07/01/2011 [facility], KVNG R 787.3 Gas/bloating Pain 07/01/2011 [facility], KVNG R 789.00 Abdominal Pain Unspecified Site [facility]/01/2011 [facility] 789.06 Abdominal Pain Epigastric 07/01/2011 [...] 789.04 Abdominal Pain Left Lower Quadrant 07/08/2011 [facility], KVNG R 562.11 Diverticulitis Of Colon (without Hemorrhage) 07/08/2011 [facility], KV[facility] R 789.02 Abdominal Pain Left Upper Quadrant 07/08/2011 [facility], KVNG R 789.04 Abdominal Pain Left Lower Quadrant 07/08/2011 562.11 Div erticulitis Of Colon (without Hemorrhage) 07/08/2011 789.02 Abd ominal Pain Left Upper Quadrant 07/08/2011 789.04 Abd ominal Pain Left Lower Quadrant 07/08/2011 562.11 Div erticulitis Of Colon (without Hemorrhage) 07/08/2011 789.02 Abd ominal Pain Left Upper Quadrant 07/08/2011 789.04 Abd ominal Pain Left Lower Quadrant 07/08/2011 [facility], KVNG R 562.11 Diverticulitis Of Colon (without Hemorrhage) 07/08/2011 [facility] 789.02 Abdominal Pain Left Upper Quadrant 07/08/2011 [facility] 789.04 Abdominal Pain Left Lower Quadrant 07/08/2011 562.11 Div erticulitis Of Colon (without Hemorrhage) 07/08/2011 789.02 Abd ominal Pain Left Upper Quadrant 07/08/2011 789.04 Abd ominal Pain Left Lower Quadrant 07/08/2011 562.11 Div erticulitis Of Colon (without Hemorrhage) 07/08/2011 789.02 Abd ominal Pain Left Upper Quadrant 07/08/2011 789.04 Abd ominal Pain Left Lower Quadrant 07/08/2011 562.11 Div erticulitis Of Colon (without Hemorrhage) 07/08/2011 789.02 Abd ominal Pain Left Upper Quadrant 07/08/2011 789.04 Abd ominal Pain Left Lower Quadrant 07/08/2011 562.11 Div erticulitis Of Colon (without Hemorrhage) 07/08/2011 789.02 Abd ominal Pain Left Upper Quadrant 07/08/2011 789.04 Abd ominal Pain Left Lower Quadrant 07/08/2011 562.11 Div erticulitis Of Colon (without Hemorrhage) 07/08/2011 789.02 Abd ominal Pain Left Upper Quadrant 07/08/2011 789.04 Abd ominal Pain Left Lower Quadrant 07/08/2011 562.11 Div erticulitis Of Colon (without Hemorrhage) 07/08/2011 789.02 Abd ominal Pain Left Upper Quadrant 07/08/2011 789.04 Abd ominal Pain Left Lower Quadrant 07/08/2011 562.11 Div erticulitis Of Colon (without Hemorrhage) 07/08/2011 789.02 Abd ominal Pain Left Upper Quadrant 07/08/2011 789.04 Abd ominal Pain Left Lower Quadrant 07/08/2011 562.11 Div erticulitis Of Colon (without Hemorrhage) 07/08/2011 789.02 Abd ominal Pain Left Upper Quadrant 07/08/2011 789.04 Abd ominal Pain Left Lower Quadrant 07/08/2011 562.11 Div erticulitis Of Colon (without Hemorrhage) 07/08/2011 789.02 Abd ominal Pain Left Upper Quadrant 07/08/2011 789.04 Abd ominal Pain Left Lower Quadrant 07/08/2011 [facility] 562.11 Diverticulitis Of Colon (without Hemorrhage) 07/08/2011 [facility] 789.02 Abdominal Pain Left Upper Quadrant 07/08/2011 [facility] 789.04 Abdominal Pain Left Lower Quadrant 07/08/2011 [facility] KNIGHT 562.11 Diverticulitis Of Colon (without Hemorrhage) 07/08/2011 [...] Left Lower Quadrant 07/08/2011 NATHALIE TORO MD 562.1 1 Diverticulitis Of Colon (without Hemorrhage) 07/08/2011 NATHALIE TORO MD 789.0 2 Abdominal Pain Left Upper Quadrant 07/08/2011 NATHALIE TORO MD 789.0 4 Abdominal Pain Left Lower Quadrant 07/08/2011 [facility], KVNG R 562.11 Diverticulitis Of Colon (without Hemorrhage) 07/08/2011 [facility], KVNG R 789.02 Abdominal Pain Left Upper Quadrant 07/08/2011 [facility], KVNG R 789.04 Abdominal Pain Left Lower Quadrant 07/08/2011 EDUARDO COBB JR S 562.11 Diverticulitis Of Colon (without Hemorrhage) 07/08/2011 EDUARDO COBB JR S 789.02 Abdominal Pain Left Upper Quadrant 07/08/2011 EDUARDO COBB JR S 789.04 Abdominal Pain Left Lower Quadrant [...] Abdominal Pain Left Lower Quadrant 07/08/2011 [employer] SPECIALIST, LETTY S 562.11 Diverticulitis Of Colon (without Hemorrhage) 07/08/2011 [employer] SPECIALIST, LETTY S 789.02 Abdominal Pain Left Upper Quadrant 07/08/2011 [employer] SPECIALIST, LETTY S 789.04 Abdominal Pain Left Lower Quadrant 07/08/2011 NATHALIE TORO MD 562.1 1 Diverticulitis Of Colon (without Hemorrhage) 07/08/2011 NATHALIE TORO MD 789.0 2 Abdominal Pain Left Upper Quadrant 07/08/2011 NATHALIE TORO MD 789.0 4 Abdominal Pain Left Lower Quadrant 07/08/2011 MAYUR LSCS, KVNG R 562.11 Diverticulitis Of Colon (without Hemorrhage) 07/08/2011 MAYUR LSCS, KVNG R 789.02 Abdominal Pain Left Upper Quadrant 07/08/2011 MAYUR LSCS, KVNG R 789.04 Abdominal Pain Left Lower Quadrant 07/08/2011 NATHALIE TORO MD 562.1 1 Diverticulitis Of Colon (without Hemorrhage) 07/08/2011 NATHALIE TORO MD 789.0 2 Abdominal Pain Left Upper Quadrant 07/08/2011 NATHALIE TORO MD 789.0 4 Abdominal Pain Left Lower Quadrant 07/08/2011 MAYUR [...] Abdominal Pain Left Lower Quadrant 07/08/2011 [employer] SPECIALIST, ROBERT 562 .11 Diverticulitis Of Colon (without Hemorrhage) 07/08/2011 WANG [employer] SPECIALIST, ROBERT 789 .02 Abdominal Pain Left Upper Quadrant 07/08/2011 WANG MARKETING PRODUCTION SPECIALIST, ROBERT 789 .04 Abdominal Pain Left Lower Quadrant 07/08/2011 [employer] PRODUCTION SPECIALIST, ROBERT 562 .11 Diverticulitis Of Colon (without Hemorrhage) 07/08/2011 [employer] PRODUCTION SPECIALIST, ROBERT 789 .02 Abdominal Pain Left Upper Quadrant 07/08/2011 [employer] PRODUCTION SPECIALIST, ROBERT 789 .04 Abdominal Pain Left Lower Quadrant 07/08/2011 [employer] PRODUCTION SPECIALIST, LETTY S 562.11 Diverticulitis Of Colon (without Hemorrhage) 07/08/2011 [employer] PRODUCTION SPECIALIST, LETTY S 789.02 Abdominal Pain Left Upper Quadrant 07/08/2011 [employer] PRODUCTION SPECIALIST, LETTY S 789.04 Abdominal Pain Left Lower [...] Abdominal Pain Left Lower Quadrant 07/08/2011 [employer] PRODUCTION SPECIALIST, ROBERT 562 .11 Diverticulitis Of Colon (without Hemorrhage) 07/08/2011 [employer] PRODUCTION SPECIALIST, ROBERT 789 .02 Abdominal Pain Left Upper Quadrant 07/08/2011 [employer] PRODUCTION SPECIALIST, ROBERT 789 .04 Abdominal Pain Left Lower Quadrant 07/08/2011 [facility], KVNG R 562.11 Diverticulitis Of Colon (without Hemorrhage) 07/08/2011 [facility], KVNG R 789.02 Abdominal Pain Left Upper Quadrant 07/08/2011 [facility], KVNG R 789.04 Abdominal Pain Left Lower Quadrant 07/08/2011 [employer] PRODUCTION SPECIALIST, LETTY S 562.11 Diverticulitis Of Colon (without Hemorrhage) 07/08/2011 [employer] PRODUCTION SPECIALIST, LETTY S 789.02 Abdominal Pain Left Upper Quadrant 07/08/2011 [employer] PRODUCTION SPECIALIST, LETTY S 789.04 Abdominal Pain Left Lower Quadrant 07/08/2011 [facility], KVNG R 562.11 Diverticulitis Of Colon (without Hemorrhage) 07/08/2011 [facility], KVNG R 789.02 Abdominal Pain Left Upper Quadrant 07/08/2011 [facility] 789.04 Abdominal Pain Left Lower Quadrant 07/08/2011 [facility] 562.11 Diverticulitis Of Colon (without Hemorrhage) 07/08/2011 [facility] 789.02 Abdominal Pain Left Upper Quadrant 07/08/2011 [facility] 789.04 Abdominal Pain Left Lower Quadrant 07/08/2011 [facility], KVNG R 562.11 Diverticulitis Of Colon (without Hemorrhage) 07/08/2011 [facility], KVNG R 789.02 Abdominal Pain Left Upper Quadrant 07/08/2011 [facility], KVNG R 789.04 Abdominal Pain Left Lower Quadrant 07/08/2011 [facility] D[facility], WILLARD N 562.11 Diverticulitis Of Colon (without Hemorrhage) 07/08/2011 [facility] DDS, WILLARD N 789.02 Abdominal Pain Left Upper Quadrant 07/08/2011 [facility] DDS, WILLARD N 789.04 Abdominal Pain Left Lower Quadrant 07/11/2011 [facility] DDS, WILLARD N 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 07/11/2011 [facility], KVNG R 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 07/11/2011 301.9 PD P ERS DIS NOS 07/11/2011 301.9 PD P ERS DIS NOS 07/11/2011 [facility], KVNG R 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 07/11/2011 301.9 PD P ERS DIS NOS 07/11/2011 301.9 PD P ERS DIS NOS 07/11/2011 301.9 PD P ERS DIS NOS 07/11/2011 301.9 PD P ERS DIS NOS 07/11/2011 301.9 PD P ERS DIS NOS 07/11/2011 301.9 PD P ERS DIS NOS 07/11/2011 301.9 PD P ERS DIS NOS 07/11/2011 301.9 PD P ERS DIS NOS 07/11/2011 301.9 PD P ERS DIS NOS 07/11/2011 [facility], KVNG R 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 07/11/2011 [facility], KVNG R 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 07/11/2011 [facility], KVNG R 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 07/11/2011 NATHALIE TORO MD 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 07/11/2011 [facility], KV[facility] R 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 07/11/2011 EDUARDO COBB JR 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 07/11/2011 [facility], [facility] R 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 07/11/2011 [facility], [facility] R 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 07/11/2011 ANTONIA WILKINS APRNNDA S 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 07/11/2011 NATHALIE TORO MD 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 07/11/2011 [facility], KV[facility] R 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 07/11/2011 NATHALIE TORO MD 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 07/11/2011 [facility], KVNG R 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 07/11/2011 [facility], KV[facility] R 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 07/11/2011 [facility], KV[facility] R 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 07/11/2011 [employer] PRODUCTION SPECIALIST, ROBERT 301 .9 PD PERS DIS NOS 07/11/2011 [employer] PRODUCTION SPECIALIST, ROBERT 301 .9 PD PERS DIS NOS 07/11/2011 [employer] PRODUCTION SPECIALIST, LETTY S 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 07/11/2011 [facility], KVNG R 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 07/11/2011 [facility], KV[facility] R 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 07/11/2011 [employer] PRODUCTION SPECIALIST, ROBERT 301 .9 PD PERS DIS NOS 07/11/2011 [facility], KVNG R 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 07/11/2011 [employer] PRODUCTION SPECIALIST, LETTY S 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 07/11/2011 [facility], KVNG R 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 07/11/2011 [facility], KV[facility] R 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 07/11/2011 [facility], [facility] R 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 07/11/2011 [facility], WILLARD N 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 07/22/2011 [facility], WILLARD N 536.8 DYSPEPSIA 07/22/2011 [facility], WILLARD N 787.91 Diarrhea 07/22/2011 [facility], KVNG R 536.8 DYSPEPSIA 07/22/2011 [facility], KV[facility] R 787.91 Diarrhea 07/22/2011 536.8 DYSP EPSIA 07/22/2011 787.91 Nino rrhea 07/22/2011 536.8 DYSP EPSIA 07/22/2011 787.91 Nino rrhea 07/22/2011 [facility], KVNG R 536.8 DYSPEPSIA 07/22/2011 [facility], KVNG R 787.91 Diarrhea 07/22/2011 536.8 DYSP EPSIA 07/22/2011 787.91 Nino rrhea 07/22/2011 536.8 DYSP EPSIA 07/22/2011 787.91 Nino rrhea 07/22/2011 536.8 DYSP EPSIA 07/22/2011 787.91 Nino rrhea 07/22/2011 536.8 DYSP EPSIA 07/22/2011 787.91 Nino rrhea 07/22/2011 536.8 DYSP EPSIA 07/22/2011 787.91 Nino rrhea 07/22/2011 536.8 DYSP EPSIA 07/22/2011 787.91 Nino rrhea 07/22/2011 536.8 DYSP EPSIA 07/22/2011 787.91 Nino rrhea 07/22/2011 536.8 DYSP EPSIA 07/22/2011 787.91 Nino rrhea 07/22/2011 536.8 DYSP EPSIA 07/22/2011 787.91 Nino rrhea 07/22/2011 [facility], KVNG R 536.8 DYSPEPSIA 07/22/2011 [facility] 787.91 Diarrhea 07/22/2011 [facility], [facility] 536.8 DYSPEPSIA 07/22/2011 [facility], [facility] 787.91 Diarrhea 07/22/2011 [facility], [facility] 536.8 DYSPEPSIA 07/22/2011 [facility], [facility] 787.91 Diarrhea 07/22/2011 NATHALIE TORO MD 536.8 DYSPEPSIA 07/22/2011 NATHALIE TORO MD 787.9 1 Diarrhea 07/22/2011 [facility], KVNG R 536.8 DYSPEPSIA 07/22/2011 [facility], KV[facility] R 787.91 Diarrhea 07/22/2011 EDUARDO COBB JR S 536.8 DYSPEPSIA 07/22/2011 EDUARDO COBB JR S 787.91 Diarrhea 07/22/2011 [facility], [facility] 536.8 DYSPEPSIA 07/22/2011 [facility], KVNG R 787.91 Diarrhea 07/22/2011 [facility], KVNG R 536.8 DYSPEPSIA 07/22/2011 [facility] 787.91 Diarrhea 07/22/2011 [employer] PRODUCTION SPECIALIST, LETTY S 536.8 DYSPEPSIA 07/22/2011 [employer] PRODUCTION SPECIALIST, LETTY S 787.91 Diarrhea 07/22/2011 NATHALIE TORO MD 536.8 DYSPEPSIA 07/22/2011 NATHALIE TORO MD 787.9 1 Diarrhea 07/22/2011 [facility], KVNG R 536.8 DYSPEPSIA 07/22/2011 [facility], KVNG R 787.91 Diarrhea 07/22/2011 NATHALIE TORO MD 536.8 DYSPEPSIA 07/22/2011 NATHALIE TORO MD 787.9 1 Diarrhea 07/22/2011 [facility], KVNG R 536.8 DYSPEPSIA 07/22/2011 [facility], KVNG R 787.91 Diarrhea 07/22/2011 [facility], KVNG R 536.8 DYSPEPSIA 07/22/2011 [facility], KVNG R 787.91 Diarrhea 07/22/2011 [facility], KVNG R 536.8 DYSPEPSIA 07/22/2011 [facility], KV[facility] R 787.91 Diarrhea 07/22/2011 [employer] PRODUCTION SPECIALIST, ROBERT 536 .8 DYSPEPSIA 07/22/2011 [employer] PRODUCTION SPECIALIST, ROBERT 787 .91 Diarrhea 07/22/2011 [employer] PRODUCTION SPECIALIST, ROBERT 536 .8 DYSPEPSIA 07/22/2011 [employer] PRODUCTION SPECIALIST, ROBERT 787 .91 Diarrhea 07/22/2011 [employer] PRODUCTION SPECIALIST, LETTY S 536.8 DYSPEPSIA 07/22/2011 [employer] PRODUCTION SPECIALIST, LETTY S 787.91 Diarrhea 07/22/2011 [facility], KVNG R 536.8 DYSPEPSIA 07/22/2011 [facility], KVNG R 787.91 Diarrhea 07/22/2011 [facility], KVNG R 536.8 DYSPEPSIA 07/22/2011 [facility], KVNG R 787.91 Diarrhea 07/22/2011 [employer] PRODUCTION SPECIALIST, ROBERT 536 .8 DYSPEPSIA 07/22/2011 [employer] PRODUCTION SPECIALIST, ROBERT 787 .91 Diarrhea 07/22/2011 [facility], KVNG R 536.8 DYSPEPSIA 07/22/2011 [facility], KVNG R 787.91 Diarrhea 07/22/2011 [employer] PRODUCTION SPECIALIST, LETTY S 536.8 DYSPEPSIA 07/22/2011 [employer] PRODUCTION SPECIALIST, LETTY S 787.91 Diarrhea 07/22/2011 [facility], KVNG R 536.8 DYSPEPSIA 07/22/2011 [facility], KVNG R 787.91 Diarrhea 07/22/2011 [facility], KVNG R 536.8 DYSPEPSIA 07/22/2011 [facility] 787.91 Diarrhea 07/22/2011 [facility], KVNG R 536.8 DYSPEPSIA 07/22/2011 [facility], [facility] 787.91 Diarrhea 07/22/2011 [facility], WILLARD N 536.8 DYSPEPSIA 07/22/2011 [facility], WILLARD N 787.91 Diarrhea 09/23/2011 [facility], WILLARD N 530.81 GERD 09/23/2011 [facility], WILLARD N 535.50 GASTRITIS UNSPEC 09/23/2011 [facility], WILLARD N 562.00 DIVERTICULOSIS 09/23/2011 [facility], WILLARD N 787.20 DYSPHAGIA, UNSPECIFIED 09/23/2011 [facility], [facility] 530.81 GERD 09/23/2011 [facility], [facility] 535.50 GASTRITIS UNSPEC 09/23/2011 [facility], [facility] 562.00 DIVERTICULOSIS 09/23/2011 [facility], [facility] 787.20 DYSPHAGIA, UNSPECIFIED 09/23/2011 530.81 GERD 09/23/2011 535.50 GAS TRITIS UNSPEC 09/23/2011 562.00 DIV ERTICULOSIS 09/23/2011 787.20 DYS PHAGIA, UNSPECIFIED 09/23/2011 530.81 GERD 09/23/2011 535.50 GAS TRITIS UNSPEC 09/23/2011 562.00 DIV ERTICULOSIS 09/23/2011 787.20 DYS PHAGIA, UNSPECIFIED 09/23/2011 [facility], KVNG R 530.81 GERD 09/23/2011 [facility], KVNG R 535.50 GASTRITIS UNSPEC 09/23/2011 [facility], KVNG R 562.00 DIVERTICULOSIS 09/23/2011 [facility], KVNG R 787.20 DYSPHAGIA, UNSPECIFIED 09/23/2011 530.81 GERD 09/23/2011 535.50 GAS TRITIS UNSPEC 09/23/2011 562.00 DIV ERTICULOSIS 09/23/2011 787.20 DYS PHAGIA, UNSPECIFIED 09/23/2011 530.81 GERD 09/23/2011 535.50 GAS TRITIS UNSPEC 09/23/2011 562.00 DIV ERTICULOSIS 09/23/2011 787.20 DYS PHAGIA, UNSPECIFIED 09/23/2011 530.81 GERD 09/23/2011 535.50 GAS TRITIS UNSPEC 09/23/2011 562.00 DIV ERTICULOSIS 09/23/2011 787.20 DYS PHAGIA, UNSPECIFIED 09/23/2011 530.81 GERD 09/23/2011 535.50 GAS TRITIS UNSPEC 09/23/2011 562.00 DIV ERTICULOSIS 09/23/2011 787.20 DYS PHAGIA, UNSPECIFIED 09/23/2011 530.81 GERD 09/23/2011 535.50 GAS TRITIS UNSPEC 09/23/2011 562.00 DIV ERTICULOSIS 09/23/2011 787.20 DYS PHAGIA, UNSPECIFIED 09/23/2011 530.81 GERD 09/23/2011 535.50 GAS TRITIS UNSPEC 09/23/2011 562.00 DIV ERTICULOSIS 09/23/2011 787.20 DYS PHAGIA, UNSPECIFIED 09/23/2011 530.81 GERD 09/23/2011 535.50 GAS TRITIS UNSPEC 09/23/2011 562.00 DIV ERTICULOSIS 09/23/2011 787.20 DYS PHAGIA, UNSPECIFIED 09/23/2011 530.81 GERD 09/23/2011 535.50 GAS TRITIS UNSPEC 09/23/2011 562.00 DIV ERTICULOSIS 09/23/2011 787.20 DYS PHAGIA, UNSPECIFIED 09/23/2011 530.81 GERD 09/23/2011 535.50 GAS TRITIS UNSPEC 09/23/2011 562.00 DIV ERTICULOSIS 09/23/2011 787.20 DYS PHAGIA, UNSPECIFIED 09/23/2011 [facility], KVNG R 530.81 GERD 09/23/2011 [facility], KVNG R 535.50 GASTRITIS UNSPEC 09/23/2011 [facility], KVNG R 562.00 DIVERTICULOSIS 09/23/2011 [facility], KVNG R 787.20 DYSPHAGIA, UNSPECIFIED 09/23/2011 [facility], KVNG R 530.81 GERD 09/23/2011 [facility], KVNG R 535.50 GASTRITIS UNSPEC 09/23/2011 [facility], [facility] 562.00 DIVERTICULOSIS 09/23/2011 [facility], KV[facility] R 787.20 DYSPHAGIA, UNSPECIFIED 09/23/2011 [facility], [facility] 530.81 GERD 09/23/2011 [facility], KVNG R 535.50 GASTRITIS UNSPEC 09/23/2011 [facility], KVNG R 562.00 DIVERTICULOSIS 09/23/2011 [facility], [facility] 787.20 DYSPHAGIA, UNSPECIFIED 09/23/2011 NATHALIE TORO MD 530.8 1 GERD 09/23/2011 NATHALIE TORO MD 535.5 0 GASTRITIS UNSPEC 09/23/2011 NATHALIE TORO MD 562.0 0 DIVERTICULOSIS 09/23/2011 NATHALIE TORO MD 787.2 0 DYSPHAGIA, UNSPECIFIED 09/23/2011 [facility], KVNG R 530.81 GERD 09/23/2011 [facility], KVNG R 535.50 GASTRITIS UNSPEC 09/23/2011 [facility], KVNG R 562.00 DIVERTICULOSIS 09/23/2011 [facility], KVNG R 787.20 DYSPHAGIA, UNSPECIFIED 09/23/2011 REZA ZAPATA, EDUARDO Boudreaux 530.81 GERD 09/23/2011 REZA ZAPATA, EDUARDO Boudreaux 535.50 GASTRITIS UNSPEC 09/23/2011 REZA ZAPATA, EDUARDO S 562.00 DIVERTICULOSIS 09/23/2011 EDUARDO COBB JR S 787.20 DYSPHAGIA, UNSPECIFIED 09/23/2011 [facility], KVNG R 530.81 GERD 09/23/2011 [facility], KVNG R 535.50 GASTRITIS UNSPEC 09/23/2011 [facility], KVNG R 562.00 DIVERTICULOSIS 09/23/2011 [facility], KVNG R 787.20 DYSPHAGIA, UNSPECIFIED 09/23/2011 [facility], KVNG R 530.81 GERD 09/23/2011 [facility], KVNG R 535.50 GASTRITIS UNSPEC 09/23/2011 [facility], KVNG R 562.00 DIVERTICULOSIS 09/23/2011 [facility] 787.20 DYSPHAGIA, UNSPECIFIED 09/23/2011 [employer] PRODUCTION SPECIALIST, LETTY S 530.81 GERD 09/23/2011 [employer] PRODUCTION SPECIALIST, LETTY S 535.50 GASTRITIS UNSPEC 09/23/2011 [employer] PRODUCTION SPECIALIST, LETTY S 562.00 DIVERTICULOSIS 09/23/2011 [employer] PRODUCTION SPECIALIST, LETTY S 787.20 DYSPHAGIA, UNSPECIFIED 09/23/2011 NATHALIE TORO MD 530.8 1 GERD 09/23/2011 NATHALIE TORO MD 535.5 0 GASTRITIS UNSPEC 09/23/2011 NATHALIE TORO MD 562.0 0 DIVERTICULOSIS 09/23/2011 NATHALIE TORO MD 787.2 0 DYSPHAGIA, UNSPECIFIED 09/23/2011 [facility], KVNG R 530.81 GERD 09/23/2011 [facility], KVNG R 535.50 GASTRITIS UNSPEC 09/23/2011 [facility], KVNG R 562.00 DIVERTICULOSIS 09/23/2011 [facility] 787.20 DYSPHAGIA, UNSPECIFIED 09/23/2011 NATHALIE TORO MD 530.8 1 GERD 09/23/2011 NATHALIE TORO MD 535.5 0 GASTRITIS UNSPEC 09/23/2011 NATHALIE TORO MD 562.0 0 DIVERTICULOSIS 09/23/2011 NATHALIE TORO MD 787.2 0 DYSPHAGIA, UNSPECIFIED 09/23/2011 [facility], KVNG R 530.81 GERD 09/23/2011 [facility], KVNG R 535.50 GASTRITIS UNSPEC 09/23/2011 [facility], [facility] 562.00 DIVERTICULOSIS 09/23/2011 [facility], [...] KVNG R 787.20 DYSPHAGIA, UNSPECIFIED 09/23/2011 [employer] PRODUCTION SPECIALIST, ROBERT 530 .81 GERD 09/23/2011 [employer] PRODUCTION SPECIALIST, ROBERT 535 .50 GASTRITIS UNSPEC 09/23/2011 [employer] PRODUCTION SPECIALIST, ROBERT 562 .00 DIVERTICULOSIS 09/23/2011 [employer] PRODUCTION SPECIALIST, ROBERT 787 .20 DYSPHAGIA, UNSPECIFIED 09/23/2011 [employer] PRODUCTION SPECIALIST, ROBERT 530 .81 GERD 09/23/2011 [employer] PRODUCTION SPECIALIST, ROBERT 535 .50 GASTRITIS UNSPEC 09/23/2011 [employer] PRODUCTION SPECIALIST, ROBERT 562 .00 DIVERTICULOSIS 09/23/2011 [employer] PRODUCTION SPECIALIST, ROBERT 787 .20 DYSPHAGIA, UNSPECIFIED 09/23/2011 [employer] PRODUCTION SPECIALIST, LETTY S 530.81 GERD 09/23/2011 [employer] PRODUCTION SPECIALIST, LETTY S 535.50 GASTRITIS UNSPEC 09/23/2011 [employer] PRODUCTION SPECIALIST, LETTY S 562.00 DIVERTICULOSIS 09/23/2011 [employer] PRODUCTION SPECIALIST, LETTY S 787.20 DYSPHAGIA, UNSPECIFIED 09/23/2011 [facility], KVNG R 530.81 GERD 09/23/2011 [facility], KVNG R 535.50 GASTRITIS UNSPEC 09/23/2011 [facility], KVNG R 562.00 DIVERTICULOSIS 09/23/2011 [facility], KVNG R 787.20 DYSPHAGIA, UNSPECIFIED 09/23/2011 [facility], KVNG R 530.81 GERD 09/23/2011 [facility], KVNG R 535.50 GASTRITIS UNSPEC 09/23/2011 [facility], KVNG R 562.00 DIVERTICULOSIS 09/23/2011 [facility], KVNG R 787.20 DYSPHAGIA, UNSPECIFIED 09/23/2011 [employer] PRODUCTION SPECIALIST, ROBERT 530 .81 GERD 09/23/2011 [employer] PRODUCTION SPECIALIST, ROBERT 535 .50 GASTRITIS UNSPEC 09/23/2011 [employer] PRODUCTION SPECIALIST, ROBERT 562 .00 DIVERTICULOSIS 09/23/2011 [employer] PRODUCTION SPECIALIST, ROBERT 787 .20 DYSPHAGIA, UNSPECIFIED 09/23/2011 [facility], KVNG R 530.81 GERD 09/23/2011 [facility], KVNG R 535.50 GASTRITIS UNSPEC 09/23/2011 [facility], KVNG R 562.00 DIVERTICULOSIS 09/23/2011 [facility], KVNG R 787.20 DYSPHAGIA, UNSPECIFIED 09/23/2011 [employer] PRODUCTION SPECIALIST, LETTY S 530.81 GERD 09/23/2011 [employer] PRODUCTION SPECIALIST, LETTY S 535.50 GASTRITIS UNSPEC 09/23/2011 [employer] PRODUCTION SPECIALIST, LETTY S 562.00 DIVERTICULOSIS 09/23/2011 [employer] PRODUCTION SPECIALIST, LETTY S 787.20 DYSPHAGIA, UNSPECIFIED 09/23/2011 [facility], KVNG R 530.81 GERD 09/23/2011 [facility], KVNG R 535.50 GASTRITIS UNSPEC 09/23/2011 [facility], KVNG R 562.00 DIVERTICULOSIS 09/23/2011 [facility], KVNG R 787.20 DYSPHAGIA, UNSPECIFIED 09/23/2011 [...] WILLARD N 786.50 UNSPECIFIED CHEST PAIN 12/25/2011 [facility], KVNG R 786.50 UNSPECIFIED CHEST PAIN 12/25/2011 786.50 UNS PECIFIED CHEST PAIN 12/25/2011 786.50 UNS PECIFIED CHEST PAIN 12/25/2011 [facility], KVNG R 786.50 UNSPECIFIED CHEST PAIN 12/25/2011 786.50 UNS PECIFIED CHEST PAIN 12/25/2011 786.50 UNS PECIFIED CHEST PAIN 12/25/2011 786.50 UNS PECIFIED CHEST PAIN 12/25/2011 786.50 UNS PECIFIED CHEST PAIN 12/25/2011 786.50 UNS PECIFIED CHEST PAIN 12/25/2011 786.50 UNS PECIFIED CHEST PAIN 12/25/2011 786.50 UNS PECIFIED CHEST PAIN 12/25/2011 786.50 UNS PECIFIED CHEST PAIN 12/25/2011 786.50 UNS PECIFIED CHEST PAIN 12/25/2011 [facility], KVNG R 786.50 UNSPECIFIED CHEST PAIN 12/25/2011 [facility], KVNG R 786.50 UNSPECIFIED CHEST PAIN 12/25/2011 [facility], [facility]VNG R 786.50 UNSPECIFIED CHEST PAIN 12/25/2011 NATHALIE TORO MD 786.5 0 UNSPECIFIED CHEST PAIN 12/25/2011 [facility], [facility] R 786.50 UNSPECIFIED CHEST PAIN 12/25/2011 EDUARDO COBB JR 786.50 UNSPECIFIED CHEST PAIN 12/25/2011 [facility], [facility] R 786.50 UNSPECIFIED CHEST PAIN 12/25/2011 [facility], [facility] R 786.50 UNSPECIFIED CHEST PAIN 12/25/2011 LETTY WILKINS APRN 786.50 UNSPECIFIED CHEST PAIN 12/25/2011 NATHALIE TORO MD 786.5 0 UNSPECIFIED CHEST PAIN 12/25/2011 [facility], [facility] R 786.50 UNSPECIFIED CHEST PAIN 12/25/2011 NATHALIE TORO MD 786.5 0 UNSPECIFIED CHEST PAIN 12/25/2011 [facility], KVNG R 786.50 UNSPECIFIED CHEST PAIN 12/25/2011 [facility], KVNG R 786.50 UNSPECIFIED CHEST PAIN 12/25/2011 [facility], KVNG R 786.50 UNSPECIFIED CHEST PAIN 12/25/2011 [employer] PRODUCTION SPECIALIST, ROBERT 786 .50 UNSPECIFIED CHEST PAIN 12/25/2011 [employer] PRODUCTION SPECIALIST, ROBERT 786 .50 UNSPECIFIED CHEST PAIN 12/25/2011 [employer] PRODUCTION SPECIALIST, LETTY S 786.50 UNSPECIFIED CHEST PAIN 12/25/2011 [facility], KVNG R 786.50 UNSPECIFIED CHEST PAIN 12/25/2011 [facility], KV[facility] R 786.50 UNSPECIFIED CHEST PAIN 12/25/2011 [employer] PRODUCTION SPECIALIST, ROBERT 786 .50 UNSPECIFIED CHEST PAIN 12/25/2011 [facility], KV[facility] R 786.50 UNSPECIFIED CHEST PAIN 12/25/2011 [employer] PRODUCTION SPECIALIST, LETTY S 786.50 UNSPECIFIED CHEST PAIN 12/25/2011 [facility], KVNG R 786.50 UNSPECIFIED CHEST PAIN 12/25/2011 [facility], KV[facility] R 786.50 UNSPECIFIED CHEST PAIN 12/25/2011 [facility], [facility] R 786.50 UNSPECIFIED CHEST PAIN 12/25/2011 [facility] DDS, WILLARD N 786.50 UNSPECIFIED CHEST PAIN 02/06/2012 [facility] DDS, WILLARD N 110.1 DERMATOPHYTOSIS OF NAIL 02/06/2012 [facility] DDS, WILLARD N 780.8 GENERALIZED HYPERHIDROSIS 02/06/2012 [facility] DDS, WILLARD N 782.1 RASH AND OTHER NONSPECIFIC SKIN ERUPTION 02/06/2012 [facility], KVNG R 110.1 DERMATOPHYTOSIS OF NAIL 02/06/2012 [facility], KVNG R 780.8 GENERALIZED HYPERHIDROSIS 02/06/2012 [facility], KV[facility] R 782.1 RASH AND OTHER NONSPECIFIC SKIN ERUPTION 02/06/2012 110.1 DERM ATOPHYTOSIS OF NAIL 02/06/2012 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 HYPERHIDROSIS 02/06/2012 782.1 RASH AND OTHER NONSPECIFIC SKIN ERUPTION 02/06/2012 110.1 DERM ATOPHYTOSIS OF NAIL 02/06/2012 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 HYPERHIDROSIS 02/06/2012 782.1 RASH AND OTHER NONSPECIFIC SKIN ERUPTION 02/06/2012 [facility], KVNG R 110.1 DERMATOPHYTOSIS OF NAIL 02/06/2012 [facility], KVNG R 780.8 GENERALIZED HYPERHIDROSIS 02/06/2012 [facility], KVNG R 782.1 RASH AND OTHER NONSPECIFIC SKIN ERUPTION 02/06/2012 110.1 DERM ATOPHYTOSIS OF NAIL 02/06/2012 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 HYPERHIDROSIS 02/06/2012 782.1 RASH AND OTHER NONSPECIFIC SKIN ERUPTION 02/06/2012 110.1 DERM ATOPHYTOSIS OF NAIL 02/06/2012 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 HYPERHIDROSIS 02/06/2012 782.1 RASH AND OTHER NONSPECIFIC SKIN ERUPTION 02/06/2012 110.1 DERM ATOPHYTOSIS OF NAIL 02/06/2012 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 HYPERHIDROSIS 02/06/2012 782.1 RASH AND OTHER NONSPECIFIC SKIN ERUPTION 02/06/2012 110.1 DERM ATOPHYTOSIS OF NAIL 02/06/2012 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 HYPERHIDROSIS 02/06/2012 782.1 RASH AND OTHER NONSPECIFIC SKIN ERUPTION 02/06/2012 110.1 DERM ATOPHYTOSIS OF NAIL 02/06/2012 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 HYPERHIDROSIS 02/06/2012 782.1 RASH AND OTHER NONSPECIFIC SKIN ERUPTION 02/06/2012 110.1 DERM ATOPHYTOSIS OF NAIL 02/06/2012 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 HYPERHIDROSIS 02/06/2012 782.1 RASH AND OTHER NONSPECIFIC SKIN ERUPTION 02/06/2012 110.1 DERM ATOPHYTOSIS OF NAIL 02/06/2012 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 HYPERHIDROSIS 02/06/2012 782.1 RASH AND OTHER NONSPECIFIC SKIN ERUPTION 02/06/2012 110.1 DERM ATOPHYTOSIS OF NAIL 02/06/2012 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 HYPERHIDROSIS 02/06/2012 782.1 RASH AND OTHER NONSPECIFIC SKIN ERUPTION 02/06/2012 110.1 DERM ATOPHYTOSIS OF NAIL 02/06/2012 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 HYPERHIDROSIS 02/06/2012 782.1 RASH AND OTHER NONSPECIFIC SKIN ERUPTION 02/06[facility]2012 [facility] NAIL 02/06/2012 [facility], KVNG R 780.8 GENERALIZED HYPERHIDROSIS 02/06/2012 [facility], KVNG R 782.1 RASH AND OTHER NONSPECIFIC SKIN ERUPTION 02/06/2012 [facility], KVNG R 110.1 DERMATOPHYTOSIS OF NAIL 02/06/2012 [facility], KVNG R 780.8 GENERALIZED HYPERHIDROSIS 02/06/2012 [facility], KVNG R 782.1 RASH AND OTHER NONSPECIFIC SKIN ERUPTION [facility] NAIL [facility]/06[facility] 780.8 GENERALIZED HYPERHIDROSIS 02/06/2012 [facility], KVNG R 782.1 RASH AND OTHER NONSPECIFIC SKIN ERUPTION 02/06/2012 NATHALIE TORO MD 110.1 DERMATOPHYTOSIS OF NAIL 02/06/2012 NATHALIE TORO MD 780.8 GENERALIZED HYPERHIDROSIS 02/06/2012 NATHALIE TORO MD 782.1 RASH AND OTHER NONSPECIFIC SKIN ERUPTION 02/06/2012 [facility], KVNG R 110.1 DERMATOPHYTOSIS OF NAIL 02/06/2012 [facility] 780.8 GENERALIZED HYPERHIDROSIS 02/06/2012 [facility] 782.1 RASH AND OTHER NONSPECIFIC SKIN ERUPTION 02/06/2012 EDUARDO COBB JR 110.1 DERMATOPHYTOSIS OF NAIL 02/06/2012 EDUARDO COBB JR S 780.8 GENERALIZED HYPERHIDROSIS 02/06/2012 EUDARDO COBB JR S 782.1 RASH AND OTHER NONSPECIFIC SKIN ERUPTION 02/06/2012 [facility] 110.1 DERMATOPHYTOSIS OF NAIL 02/06/2012 [facility] 780.8 GENERALIZED HYPERHIDROSIS 02/06/2012 [facility] 782.1 RASH AND OTHER NONSPECIFIC SKIN ERUPTION 02/06/2012 [facility] 110.1 DERMATOPHYTOSIS OF NAIL 02/06/2012 [facility] 780.8 GENERALIZED HYPERHIDROSIS 02/06/2012 [facility] 782.1 RASH AND OTHER NONSPECIFIC SKIN ERUPTION 02/06/2012 LETTY WILKINS APRN S 110.1 DERMATOPHYTOSIS OF NAIL 02/06/2012 LETTY WILKINS APRN S 780.8 GENERALIZED HYPERHIDROSIS 02/06/2012 LETTY WILKINS APRN 782.1 RASH AND OTHER NONSPECIFIC SKIN ERUPTION 02/06/2012 NATHALIE TORO MD 110.1 DERMATOPHYTOSIS OF NAIL 02/06/2012 NATHALIE TORO MD 780.8 GENERALIZED HYPERHIDROSIS 02/06/2012 NATHALIE TORO MD 782.1 RASH AND OTHER NONSPECIFIC SKIN ERUPTION 02/06/2012 [facility], KVNG R 110.1 DERMATOPHYTOSIS OF NAIL 02/06/2012 [facility], KVNG R 780.8 GENERALIZED HYPERHIDROSIS 02/06/2012 [facility], KVNG R 782.1 RASH AND OTHER NONSPECIFIC SKIN ERUPTION 02/06/2012 NATHALIE TORO MD 110.1 DERMATOPHYTOSIS OF NAIL 02/06/2012 NATHALIE TORO MD 780.8 GENERALIZED HYPERHIDROSIS 02/06/2012 NATHALIE TORO MD 782.1 RASH AND OTHER NONSPECIFIC SKIN ERUPTION 02/06/2012 [facility], KVNG R 110.1 DERMATOPHYTOSIS OF NAIL 02/06/2012 [facility], KVNG R 780.8 GENERALIZED HYPERHIDROSIS 02/06/2012 [facility], KVNG R 782.1 RASH AND OTHER NONSPECIFIC SKIN ERUPTION 02/06/2012 [facility], KVNG R 110.1 DERMATOPHYTOSIS OF NAIL 02/06/2012 [facility], KVNG R 780.8 GENERALIZED HYPERHIDROSIS 02/06/2012 [facility], KVNG R 782.1 RASH AND OTHER NONSPECIFIC SKIN ERUPTION 02/06/2012 [facility], KVNG R 110.1 DERMATOPHYTOSIS OF NAIL 02/06[facility]2012 [facility] 780.8 GENERALIZED HYPERHIDROSIS 02/06/2012 [facility], KVNG R 782.1 RASH AND OTHER NONSPECIFIC SKIN ERUPTION 02/06/2012 [employer], ROBERT 110 .1 DERMATOPHYTOSIS OF NAIL 02/06/2012 [employer] SPECIALIST, ROBERT 780 .8 GENERALIZED HYPERHIDROSIS 02/06/2012 [employer] PRODUCTION SPECIALIST, ROBERT 782 .1 RASH AND OTHER NONSPECIFIC SKIN ERUPTION 02/06/2012 [employer] PRODUCTION SPECIALIST, ROBERT 110 .1 DERMATOPHYTOSIS OF NAIL 02/06/2012 [employer] PRODUCTION SPECIALIST, ROBERT 780 .8 GENERALIZED HYPERHIDROSIS 02/06/2012 [employer] PRODUCTION SPECIALIST, ROBERT 782 .1 RASH AND OTHER NONSPECIFIC SKIN ERUPTION 02/06/2012 [employer], LETTY S 110.1 DERMATOPHYTOSIS OF NAIL 02/06/2012 [employer] SPECIALIST, LETTY S 780.8 GENERALIZED HYPERHIDROSIS 02/06/2012 [employer]IST, LETTY S 782.1 RASH AND OTHER NONSPECIFIC SKIN ERUPTION 02/06/2012 [facility] K[facility] 110.1 DERMATOPHYTOSIS OF NAIL 02/06/2012 [facility], KVNG R 780.8 GENERALIZED HYPERHIDROSIS 02/06/2012 [facility], KVNG R 782.1 RASH AND OTHER NONSPECIFIC SKIN ERUPTION 02/06/2012 [facility], KVNG R 110.1 DERMATOPHYTOSIS OF NAIL 02/06/2012 [facility], KVNG R 780.8 GENERALIZED HYPERHIDROSIS 02/06/2012 [facility], KVNG R 782.1 RASH AND OTHER NONSPECIFIC SKIN ERUPTION 02/06/2012 [employer]IST, ROBERT 110 .1 DERMATOPHYTOSIS OF NAIL 02/06/2012 [employer] MARKET[employer] PRODUCTION SPECIALIST, ROBERT 780 .8 GENERALIZED HYPERHIDROSIS 02/06/2012 [employer] MARK[employer] PRODUCTION SPECIALIST, ROBERT 782 .1 RASH AND OTHER NONSPECIFIC SKIN ERUPTION 02/06/2012 [facility] K[facility] 110.1 DERMATOPHYTOSIS OF NAIL 02/06/2012 [facility] KV[facility] R 780.8 GENERALIZED HYPERHIDROSIS 02/06/2012 [facility], KVNG R 782.1 RASH AND OTHER NONSPECIFIC SKIN ERUPTION 02/06/2012 [employer] SPECIALIST, LETTY S 110.1 DERMATOPHYTOSIS OF NAIL 02/06/2012 [employer] PRODUCTION SPECIALIST, LETTY S 780.8 GENERALIZED HYPERHIDROSIS 02/06/2012 [employer] PRODUCTION SPECIALIST, LETTY S 782.1 RASH AND OTHER NONSPECIFIC SKIN ERUPTION 02/06/2012 [facility] K[facility] 110.1 DERMATOPHYTOSIS OF NAIL 02/06/2012 [facility], KVNG R 780.8 GENERALIZED HYPERHIDROSIS 02/06/2012 [facility], KVNG R 782.1 RASH AND OTHER NONSPECIFIC SKIN ERUPTION 02/06/2012 [facility], KVNG R 110.1 DERMATOPHYTOSIS OF NAIL 02/06/2012 [facility], KVNG R 780.8 GENERALIZED HYPERHIDROSIS 02/06/2012 [facility], KVNG R 782.1 RASH AND OTHER NONSPECIFIC SKIN ERUPTION 02/06/2012 [facility], KVNG R 110.1 DERMATOPHYTOSIS OF NAIL 02/06/2012 [facility], KVNG R 780.8 GENERALIZED HYPERHIDROSIS 02/06/2012 [facility], KVNG R 782.1 RASH AND OTHER NONSPECIFIC SKIN ERUPTION 02/06/2012 [facility], WILLARD N 110.1 DERMATOPHYTOSIS OF NAIL 02/06/2012 [facility], WILLARD N 780.8 GENERALIZED HYPERHIDROSIS 02/06/2012 [facility], WILLARD N 782.1 RASH AND OTHER NONSPECIFIC SKIN ERUPTION 02/08/2012 [facility], WILLARD N V76.2 CERVICAL CANCER SCREENING (PAP SMEAR) [facility]CER [facility]EN[facility] (PAP SMEAR) 02/08/2012 V76.2 CERV ICAL CANCER SCREENING (PAP SMEAR) 02/08/2012 V76.2 CERV ICAL CANCER SCREENING (PAP SMEAR) 02/08/2012 [facility] CERVICAL CANCER SCREENING (PAP SMEAR) 02/08/2012 V76.2 CERV ICAL CANCER SCREENING (PAP SMEAR) 02/08/2012 V76.2 CERV ICAL CANCER SCREENING (PAP SMEAR) 02/08/2012 V76.2 CERV ICAL CANCER SCREENING (PAP SMEAR) 02/08/2012 V76.2 CERV ICAL CANCER SCREENING (PAP SMEAR) 02/08/2012 V76.2 CERV ICAL CANCER SCREENING (PAP SMEAR) 02/08/2012 V76.2 CERV ICAL CANCER SCREENING (PAP SMEAR) 02/08/2012 V76.2 CERV ICAL CANCER SCREENING (PAP SMEAR) 02/08/2012 V76.2 CERV ICAL CANCER SCREENING (PAP SMEAR) 02/08/2012 V76.2 CERV ICAL CANCER SCREENING (PAP SMEAR) [facility] CERVICAL CANCER SCREENING (PAP SMEAR) 02/08/2012 [facility], KVNG R V76.2 CERVICAL CANCER SCREENING (PAP SMEAR) 02/08/2012 [facility], KVNG R V76.2 CERVICAL CANCER SCREENING (PAP SMEAR) 02/08/2012 NATHALIE TORO MD V76.2 CERVICAL CANCER SCREENING (PAP SMEAR) 02/08/2012 [facility], KVNG R V76.2 CERVICAL CANCER SCREENING (PAP SMEAR) 02/08/2012 EDUARDO COBB JR V76.2 CERVICAL CANCER SCREENING (PAP SMEAR) 02/08/2012 [facility], KVNG R V76.2 CERVICAL CANCER SCREENING (PAP SMEAR) 02/08/2012 [facility], KVNG R V76.2 CERVICAL CANCER SCREENING (PAP SMEAR) 02/08/2012 LETTY WILKINS APRN V76.2 CERVICAL CANCER SCREENING (PAP SMEAR) 02/08/2012 NATHALIE TORO MD V76.2 CERVICAL CANCER SCREENING (PAP SMEAR) 02/08/2012 [facility], KVNG R V76.2 CERVICAL CANCER SCREENING (PAP SMEAR) 02/08/2012 NATHALIE TORO MD V76.2 CERVICAL CANCER SCREENING (PAP SMEAR) 02/08/2012 [facility], KVNG R V76.2 CERVICAL CANCER SCREENING (PAP SMEAR) 02/08/2012 [facility], KVNG R V76.2 CERVICAL CANCER SCREENING (PAP SMEAR) 02/08/2012 [facility], KVNG R V76.2 CERVICAL CANCER SCREENING (PAP SMEAR) 02/08/2012 [employer] SPECIALIST, ROBERT V76 .2 CERVICAL CANCER SCREENING (PAP SMEAR) 02/08/2012 WANG MARKET[employer] PRODUCTION SPECIALIST, ROBERT V76 .2 CERVICAL CANCER SCREENING (PAP SMEAR) 02/08/2012 LETTY WILKINS APRN S V76.2 CERVICAL CANCER SCREENING (PAP SMEAR) 02/08/2012 [facility], KVNG R V76.2 CERVICAL CANCER SCREENING (PAP SMEAR) 02/08/2012 [facility], KVNG R V76.2 CERVICAL CANCER SCREENING (PAP SMEAR) 02/08/2012 WANG MARKET[employer] PRODUCTION SPECIALIST, ROBERT V76 .2 CERVICAL CANCER SCREENING (PAP SMEAR) 02/08/2012 [facility], KVNG R V76.2 CERVICAL CANCER SCREENING (PAP SMEAR) 02/08/2012 LETTY WILKINS APRN S V76.2 CERVICAL CANCER SCREENING (PAP SMEAR) 02/08/2012 [facility], KVNG R V76.2 CERVICAL CANCER SCREENING (PAP SMEAR) 02/08/2012 [facility], KVNG R V76.2 CERVICAL CANCER SCREENING (PAP SMEAR) 02/08/2012 [facility], KVNG R V76.2 CERVICAL CANCER SCREENING (PAP SMEAR) 02/08/2012 MANASA SHEPARDS, WILLARD N V76.2 CERVICAL CANCER SCREENING (PAP SMEAR) 07/30/2012 MANASA SHEPARDS, WILLARD N V04.81 FLU DX (3 YRS AND ABOVE, IM) 07/30/2012 [facility], KVNG R V04.81 FLU DX (3 YRS AND ABOVE, IM) 07/30/2012 V04.81 FLU DX (3 YRS AND ABOVE, IM) 07/30/2012 V04.81 FLU DX (3 YRS AND ABOVE, IM) 07/30/2012 [facility], KVNG R V04.81 FLU DX [...] DX (3 YRS AND ABOVE, IM) 07/30/2012 [facility], KVNG R V04.81 FLU DX (3 YRS AND ABOVE, IM) 07/30/2012 [facility], KVNG R V04.81 FLU DX (3 YRS AND ABOVE, IM) 07/30/2012 [facility], KVNG R V04.81 FLU DX (3 YRS AND ABOVE, IM) 07/30/2012 NATHALIE TORO MD V04.8 1 FLU DX (3 YRS AND ABOVE, IM) 07/30/2012 [facility], KVNG R V04.81 FLU DX (3 YRS AND ABOVE, IM) 07/30/2012 EDUARDO COBB JR S V04.81 FLU DX (3 YRS AND ABOVE, IM) 07/30/2012 [facility] V04.81 FLU DX (3 YRS AND ABOVE, IM) 07/30/2012 [facility], KVNG R V04.81 FLU DX (3 YRS AND ABOVE, IM) 07/30/2012 LETTY WILKINS APRN S V04.81 FLU DX (3 YRS AND ABOVE, IM) 07/30/2012 NATHALIE TORO MD V04.8 1 FLU DX (3 YRS AND ABOVE, IM) 07/30/2012 [facility], KVNG R V04.81 FLU DX (3 YRS AND ABOVE, IM) 07/30/2012 NATHALIE TORO MD V04.8 1 FLU DX (3 YRS AND ABOVE, IM) 07/30/2012 [facility], KVNG R V04.81 FLU DX (3 YRS AND ABOVE, IM) 07/30/2012 [facility], KVNG R V04.81 FLU DX (3 YRS AND ABOVE, IM) 07/30/2012 [facility], KVNG R V04.81 FLU DX (3 YRS AND ABOVE, IM) 07/30/2012 WANG DAY, ROBERT V04 .81 FLU DX (3 YRS AND ABOVE, IM) 07/30/2012 WANG MARKETING PRODUCTION SPECIALIST, ROBERT V04 .81 FLU DX (3 YRS AND ABOVE, IM) 07/30/2012 LETTY WILKINS APRN S V04.81 FLU DX (3 YRS AND ABOVE, IM) 07/30/2012 [facility], KVNG R V04.81 FLU DX (3 YRS AND ABOVE, IM) 07/30/2012 [facility], KV[facility] R V04.81 FLU DX (3 YRS AND ABOVE, IM) 07/30/2012 WANG MARKET[employer] PRODUCTION SPECIALIST, ROBERT V04 .81 FLU DX (3 YRS AND ABOVE, IM) [...] (3 YRS AND ABOVE, IM) 11/04/2013 FR[employer] SPECIALIST, LETTY S 388.70 OTALGIA 11/04/2013 NATHALIE TORO MD 388.7 0 OTALGIA 11/04/2013 [facility], KVNG R 388.70 OTALGIA 11/04/2013 NATHALIE TORO MD 388.7 0 OTALGIA 11/04/2013 [facility], KVNG R 388.70 OTALGIA 11/04/2013 [facility], KVNG R 388.70 OTALGIA 11/04/2013 [facility], KVNG R 388.70 OTALGIA 11/04/2013 WANG MARKET[employer] PRODUCTION SPECIALIST, ROBERT 388 .70 OTALGIA 11/04/2013 WANG MARKETING PRODUCTION SPECIALIST, ROBERT 388 .70 OTALGIA 11/04/2013 FRNAKY MARKETING PRODUCTION SPECIALIST, LETTY S 388.70 OTALGIA 11/04/2013 [facility], KVNG R 388.70 OTALGIA 11/04/2013 [facility], KVNG R 388.70 OTALGIA 11/04/2013 WANG MARKETING PRODUCTION SPECIALIST, ROBERT 388 .70 OTALGIA 11/04/2013 [facility], KVNG R 388.70 OTALGIA 11/04/2013 FRANKY MARKETING PRODUCTION SPECIALIST, LETTY S 388.70 OTALGIA 11/04/2013 [facility], KVNG R 388.70 OTALGIA 11/04/2013 [facility], KVNG R 388.70 OTALGIA 11/04/2013 [facility], KVNG R 388.70 OTALGIA 05/23/2014 FRANK[employer] MARKET[employer] PRODUCTION SPECIALIST, LETTY S 616.10 VAGINITIS AND VULVOVAGINITIS UNSPECIFIED 05/23/2014 [facility], KVNG R 616.10 VAGINITIS AND VULVOVAGINITIS UNSPECIFIED 05/23/2014 [facility], KVNG R 616.10 VAGINITIS AND VULVOVAGINITIS UNSPECIFIED 05/23/2014 WANG MARKET[employer] PRODUCTION SPECIALIST, ROBERT 616 .10 VAGINITIS AND VULVOVAGINITIS UNSPECIFIED 05/23/2014 [facility], KVNG R 616.10 VAGINITIS AND VULVOVAGINITIS UNSPECIFIED 05/23/2014 LETTY WILKINS APRN 616.10 VAGINITIS AND VULVOVAGINITIS UNSPECIFIED 05/23/2014 [facility], KVNG R 616.10 VAGINITIS AND VULVOVAGINITIS UNSPECIFIED 05/23/2014 [facility], KVNG R 616.10 VAGINITIS AND VULVOVAGINITIS UNSPECIFIED 05/23/2014 [facility], KVNG R 616.10 VAGINITIS AND VULVOVAGINITIS UNSPECIFIED 05/26/2014 [facility], KVNG R 272.4 HYPERLIPIDEMIA 05/26/2014 [facility], KVNG R 272.4 HYPERLIPIDEMIA 05/26/2014 WANG DAY, ROBERT 272 .4 HYPERLIPIDEMIA 05/26/2014 [facility] 272.4 HYPERLIPIDEMIA 05/26/2014 LETTY WILKINS APRN S 272.4 HYPERLIPIDEMIA 05/26/2014 [facility], KVNG R 272.4 HYPERLIPIDEMIA 05/26/2014 [facility], KVNG R 272.4 HYPERLIPIDEMIA 05/26/2014 [facility] 272.4 HYPERLIPIDEMIA 06/21/2014 WANG DAY ROBERT 300 .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 06/21/2014 [facility] 300.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 06/21/2014 LETTY WILKINS APRN S 300.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 06/21/2014 [facility], KVNG R 300.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 06/21/2014 [facility], KVNG R 300.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 06/21/2014 [facility], KVNG R 300.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 07/28/2014 LETTY WILKINS APRN S 789.00 ABDOMINAL PAIN UNSPECIFIED SITE 07/28/2014 [facility], KVNG R 789.00 ABDOMINAL PAIN UNSPECIFIED SITE 07/28/2014 [facility], KVNG R 789.00 ABDOMINAL PAIN UNSPECIFIED SITE 07/28/2014 [facility], KVNG R 789.00 ABDOMINAL PAIN UNSPECIFIED SITE 07/31/2014 LETTY WILKINSP Ot 562.10 07/31/2014 LETTY WILKINSP Ot 625.8 08/08/2014 Ot 229.0 08/08/2014 Ot 255.9 08/08/2014 Ot 785.0 08/08/2014 Ot 786.50 08/08/2014 Ot V76.12 08/08/2014 Ot 787.02 08/08/2014 Ot 787.3 08/08/2014 Ot 789.00 08/08/2014 Ot 244.9 08/08/2014 Ot 250.00 08/08/2014 Ot 401.9 08/08/2014 Ot 530.81 08/08/2014 Ot 562.10 08/08/2014 Ot 780.39 08/08/2014 Ot V58.69 08/08/2014 Ot 553.3 08/08/2014 LETTY WILKINSP Ot V76.12 08/08/2014 JEFFERY HALL [facility] Ot 473.9 08/08/2014 LETTY WILKINS [facility] Ot 562.10 08/08/2014 LETTY WILKINS [facility] Ot 625.8 08/16/2014 LETTY WILKINS [facility] Ot 562.10 08/16/2014 LETTY WILKINS [facility] Ot 625.8 08/30/2014 LETTY WILKINSP Ot 789.00 10/18/2014 [facility], KV[facility] R V18.0 FAMILY HISTORY OF DIABETES MELLITUS 10/18/2014 [facility], KV[facility] R V18.0 FAMILY HISTORY OF DIABETES MELLITUS 11/26/2014 [facility], KVNG R 465.9 UPPER RESPIRATORY INFECTION 11/26/2014 [facility], KVNG R 719.41 PAIN- SHOULDER 12/29/2014 Ot 229.0 12/29/2014 Ot 255.9 12/29/2014 Ot 785.0 12/29/2014 Ot 786.50 12/29/2014 Ot V76.12 12/29/2014 Ot 787.02 12/29/2014 Ot 787.3 12/29/2014 Ot 789.00 12/29/2014 Ot 244.9 12/29/2014 Ot 250.00 12/29/2014 Ot 401.9 12/29/2014 Ot 530.81 12/29/2014 Ot 562.10 12/29/2014 Ot 780.39 12/29/2014 Ot V58.69 12/29/2014 Ot 553.3 12/29/2014 LETTY WILKINS MOPHEAD SEWER Ot V76.12 12/29/2014 JEFFERY HALL [employer] AUTOMOTIVE MANAGER Ot 473.9 12/29/2014 LETTY WILKINS MOPHEAD SEWER Ot 562.10 12/29/2014 LETTY WILKINS MOPHEAD SEWER Ot 625.8 12/29/2014 LETTY WILKINS MOPHEAD SEWER Ot 789.00 01/05/2015 VINESVITA Perez MOPHEAD SEWER Ot 726. 0 01/05/2015 VITA VINES MOPHEAD SEWER Ot 726. 2 01/05/2015 VITA VINES MOPHEAD SEWER Ot V57. 1 01/06/2015 VITA VINES MOPHEAD SEWER Ot 726. 0 01/06/2015 VITA VINES MOPHEAD SEWER Ot 726. 2 01/06/2015 VITA VINES MOPHEAD SEWER Ot V57. 1 01/06/2015 VITA VINES MOPHEAD SEWER Ot 726. 0 01/06/2015 VITA VINES MOPHEAD SEWER Ot 726. 2 01/06/2015 VITA VINES MOPHEAD SEWER Ot V57. 1 01/25/2015 VITA VINES MOPHEAD SEWER Ot 726. 0 01/25/2015 VITA VINES MOPHEAD SEWER Ot 726. 2 01/25/2015 VITA VINES MOPHEAD SEWER Ot V57. 1 01/25/2015 VITA VINES MOPHEAD SEWER Ot 726. 0 01/25/2015 ALEX VINESON Steve MOPHEAD SEWER Ot 726. 2 01/25/2015 ALEX VINESON Steve MOPHEAD SEWER Ot V57. 1 01/25/2015 ALEX VINESON Steve MOPHEAD SEWER Ot 726. 0 01/25/2015 VITA VINES MOPHEAD SEWER Ot 726. 2 01/25/2015 VITA VINES MOPHEAD SEWER Ot V57. 1 01/25/2015 ALEX VINESON Steve MOPHEAD SEWER Ot 726. 0 01/25/2015 VITA VINES MOPHEAD SEWER Ot 726. 2 01/25/2015 VITA VINES MOPHEAD SEWER Ot V57. 1 02/14/2015 VITA VINES MOPHEAD SEWER Ot 726. 0 02/14/2015 VITA VINES MOPHEAD SEWER Ot 726. 2 02/14/2015 VITA VINES MOPHEAD SEWER Ot V57. 1 02/22/2015 VITA VINES MOPHEAD SEWER Ot 726. 0 02/22/2015 VITA VINES MOPHEAD SEWER Ot 726. 2 02/22/2015 VITA VINES MOPHEAD SEWER Ot V57. 1 02/22/2015 VITA VINES MOPHEAD SEWER Ot 726. 0 02/22/2015 VITA VINES MOPHEAD SEWER Ot 726. 2 02/22/2015 VITA VINES MOPHEAD SEWER Ot V57. 1 03/09/2015 VITA VINES MOPHEAD SEWER Ot 726. 0 03/09/2015 VITA VINES MOPHEAD SEWER Ot 726. 2 03/09/2015 VITA VINES MOPHEAD SEWER Ot V57. 1 03/09/2015 VITA VINES MOPHEAD SEWER Ot 726. 0 03/09/2015 VITA VINES MOPHEAD SEWER Ot 726. 2 03/09/2015 VITA VINES MOPHEAD SEWER Ot V57. 1 03/27/2015 VITA VINES MOPHEAD SEWER Ot 726. 0 03/27/2015 VITA VINES MOPHEAD SEWER Ot 726. 2 03/27/2015 VITA VINES MOPHEAD SEWER Ot V57. 1 03/27/2015 VITA VINES MOPHEAD SEWER Ot 726. 0 03/27/2015 VITA VINES MOPHEAD SEWER Ot 726. 2 03/27/2015 VITA VINES MOPHEAD SEWER Ot V57. 1 04/02/2015 VITA VINES MOPHEAD SEWER Ot 726. 0 ADHESIVE CAPSULIT SHLDER 04/02/2015 VITA VINES MOPHEAD SEWER Ot 726. 2 SHOULDER REGION DIS NEC 04/02/2015 VITA VINES MOPHEAD SEWER Ot V57. 1 PHYSICAL THERAPY NEC 04/04/2015 VITA VINES MOPHEAD SEWER Ot 726. 0 04/04/2015 VITA VINES MOPHEAD SEWER Ot 726. 2 04/04/2015 VITA VINES MOPHEAD SEWER Ot V57. 1 04/04/2015 VITA VINES MOPHEAD SEWER Ot 726. 0 04/04/2015 VITA VINES MOPHEAD SEWER Ot 726. 2 04/04/2015 VITA VINES MOPHEAD SEWER Ot V57. 1 04/05/2015 VITA VINES MOPHEAD SEWER Ot 726. 0 04/05/2015 VITA VINES MOPHEAD SEWER Ot 726. 2 04/05/2015 VITA VINES MOPHEAD SEWER Ot V57. 1 04/05/2015 VITA VINES MOPHEAD SEWER Ot 726. 0 04/05/2015 VITA VINES MOPHEAD SEWER Ot 726. 2 04/05/2015 VITA VINES MOPHEAD SEWER Ot V57. 1 04/17/2015 VITA VINES MOPHEAD SEWER Ot 726. 0 04/17/2015 VITA VINES MOPHEAD SEWER Ot 726. 2 04/17/2015 VITA VINES MOPHEAD SEWER Ot V57. 1 04/17/2015 VITA VINES MOPHEAD SEWER Ot 726. 0 04/17/2015 VITA VINES MOPHEAD SEWER Ot 726. 2 04/17/2015 VITA VINES MOPHEAD SEWER Ot V57. 1 04/27/2015 VITA VINES MOPHEAD SEWER Ot 726. 0 04/27/2015 VITA VINES MOPHEAD SEWER Ot 726. 2 04/27/2015 VITA VINES MOPHEAD SEWER Ot V57. 1 04/27/2015 VITA VINES MOPHEAD SEWER Ot 726. 0 04/27/2015 VITA VINES MOPHEAD SEWER Ot 726. 2 04/27/2015 VITA VINES MOPHEAD SEWER Ot V57. 1 05/08/2015 VITA VINES MOPHEAD SEWER Ot 726. 0 05/08/2015 VITA VINES MOPHEAD SEWER Ot 726. 2 05/08/2015 VITA VINES MOPHEAD SEWER Ot V57. 1 05/09/2015 VITA VINES MOPHEAD SEWER Ot 726. 0 ADHESIVE CAPSULIT SHLDER 05/09/2015 VITA VINES MOPHEAD SEWER Ot 726. 2 SHOULDER REGION DIS NEC 05/09/2015 VINESVITA Ot V57. 1 PHYSICAL THERAPY NEC 05/12/2015 Ot 785.0 05/12/2015 Ot 786.50 05/12/2015 Ot V76.12 05/12/2015 Ot 787.02 05/12/2015 Ot 787.3 05/12/2015 Ot 789.00 05/12/2015 Ot 244.9 05/12/2015 Ot 250.00 05/12/2015 Ot 401.9 05/12/2015 Ot 530.81 05/12/2015 Ot 562.10 05/12/2015 Ot 780.39 05/12/2015 Ot V58.69 05/12/2015 Ot 553.3 05/12/2015 LETTY WILKINS Ot V76.12 05/12/2015 JEFFERY HALL Ot 473.9 05/12/2015 LETTY WILKINS Ot 562.10 05/12/2015 LETTY WILKINS Ot 625.8 05/12/2015 LETTY WILKINS Ot 789.00 [...] 11/10/2015 JEFFERY HALL Ot 473.9 11/10/2015 LETTY WILKINS [facility] Ot 562.10 11/10/2015 LETTY WILKINS [facility] Ot 625.8 11/10/2015 LETTY WILKINS [facility] Ot 789.00 11/10/2015 VITA VINES MOPHEAD SEWER Ot 726. 0 11/10/2015 VITA VINES MOPHEAD SEWER Ot 726. 10 11/21/2015 KAY NARANJO MARKETING PRODUCTION SPECIALIST Ot N92.1 11/21/2015 KAY NARANJO MARKETING PRODUCTION SPECIALIST Ot Z87.42 11/27/2015 KAY NARANJO MARKETING PRODUCTION SPECIALIST Ot R92.2 12/06/2015 KAY NARANJO MARKETING PRODUCTION SPECIALIST Ot N92.1 12/06/2015 KAY NARANJO MARKETING PRODUCTION SPECIALIST Ot Z87.42 12/14/2015 Ot 785.0 TACH YCARDIA NOS 12/14/[address] PAIN NOS 12/14/2015 Ot V76.12 OTH SCREEN MAMMO- MALIGN NEOPLASM OF [place] 12/14/2015 Ot 787.02 AMRIT SEA ALONE 12/14/2015 Ot 787.3 FLAT UL/ERUCTAT/GAS PAIN 12/14/2015 Ot 789.00 ABD OMINAL PAIN, UNSPECIFIED SITE 12/14/2015 Ot 244.9 HYPO THYROIDISM NOS 12/14/2015 Ot 250.00 NINO B SILVERIO WO COMPL, TYPE II OR UNSPEC TY 12/14/2015 Ot 401.9 HYPE RTENSION NOS 12/14/2015 Ot 530.81 ESO PHAGEAL REFLUX 12/14/2015 Ot 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 12/14/2015 Ot 780.39 OTH ER CONVULSIONS 12/14/2015 Ot V58.69 OTH MED,LT,CURRENT USE 12/14/2015 Ot 553.3 DIAP HRAGMATIC HERNIA 12/14/2015 LETTY WILKINS Ot V76.12 OTH SCREEN MAMMO-MALIGN NEOPLASM OF [place] 12/14/2015 JEFFERY HALL AUTOMOTIVE MANAGER Ot 473.9 CHRONIC SINUSITIS NOS 12/14/2015 LETTY WILKINS MOPHEAD SEWER Ot 562.10 DIVERTICULOSIS COLON (W/O MENT OF HEMORR 12/14/2015 LETTY WILKINS MOPHEAD SEWER Ot 625.8 FEM GENITAL SYMPTOMS NEC 12/14/2015 LETTY WILKINS MOPHEAD SEWER Ot 789.00 ABDOMINAL PAIN, UNSPECIFIED SITE 12/14/2015 VITA VINES MOPHEAD SEWER Ot 726. 0 ADHESIVE CAPSULIT SHLDER 12/14/2015 VITA VINES MOPHEAD SEWER Ot 726. 10 BURSAE TENDONS DIS SHLDER NOS 12/14/2015 KAY NARANJO MARKETING PRODUCTION SPECIALIST Ot R92.2 INCONCLUSIVE MAMMOGRAM 12/14/2015 KAY NARANJO MARKETING PRODUCTION SPECIALIST Ot N92.1 EXCESSIVE AND FREQUENT MENSTRUATION WITH 12/14/2015 KAY NARANJO MARKETING PRODUCTION SPECIALIST Ot Z87.42 PERSONAL HISTORY OF OTH DISEASES OF THE 12/19/2015 AN LAYTON DO Ot K57. 30 DVRTCLOS OF LG INT W/O PERFORATION OR AB 12/19/2015 AN LAYTON DO Ot Z12. 11 ENCOUNTER FOR SCREENING FOR MALIGNANT NE 12/19/2015 AN LAYTON DO Ot Z86.010 PERSONAL HISTORY OF COLONIC POLYPS 12/20/2015 AN LAYTON DO Ot K57. 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 11 ENCOUNTER FOR SCREENING FOR MALIGNANT NE 12/20/2015 AN LAYTON DO Ot Z86.010 PERSONAL HISTORY OF COLONIC POLYPS 01/11/2016 MISHA SAUNDERS, PATRIA Bella Ot M75.101 UNSP ROTATR-CUFF TEAR/RUPTR OF RIGHT TEREZA 01/11/2016 PATRIA SHEPHERD MD Ot Z01.818 ENCOUNTER FOR OTHER PREPROCEDURAL EXAMIN 01/11/2016 PATRIA SHEPHERD MD Ot Z11.2 ENCOUNTER FOR SCREENING FOR OTHER BACTER 01/12/2016 LETTY WILKINS Ot N83.29 OTHER OVARIAN CYSTS 01/24/2016 LETTY WILKINS Ot N83.29 OTHER OVARIAN CYSTS 10/08/2016 PATRIA SHEPHERD MD Ot M75.101 UNSP ROTATR-CUFF TEAR/RUPTR OF RIGHT TEREZA 10/08/2016 PATRIA SHEPHERD MD Ot Z01.818 ENCOUNTER FOR OTHER PREPROCEDURAL EXAMIN 10/08/2016 PATRIA SHEPHERD MD Ot Z11.2 ENCOUNTER FOR SCREENING FOR OTHER BACTER 10/08/2016 LETTY WILKINS Ot N83.29 OTHER OVARIAN CYSTS 10/10/2016 LETTY WILKINS Ot N83.201 UNSPECIFIED OVARIAN CYST, RIGHT SIDE 10/28/2016 LETTY WILKINS Ot N83.201 UNSPECIFIED OVARIAN CYST, RIGHT SIDE 11/14/2016 HAO PHILLIPS MD R Ot Z12.3 1 ENCNTR SCREEN MAMMOGRAM FOR MALIGNANT NE 11/15/2016 HAO PHILLIPS MD R Ot Z12.3 1 ENCNTR SCREEN MAMMOGRAM FOR MALIGNANT NE 11/26/2016 PATRIA EASTON DO S Ot N92.0 EXCESSIVE AND FREQUENT MENSTRUATION WITH 11/26/2016 FENPATRIA MOREL DO S Ot Z01.812 ENCOUNTER FOR PREPROCEDURAL LABORATORY E 11/26/2016 PATRIA EASTON DO S Ot Z11.2 ENCOUNTER FOR SCREENING FOR OTHER BACTER 11/27/2016 HAO PHILLIPS MD R Ot Z12.3 1 ENCNTR SCREEN MAMMOGRAM FOR MALIGNANT NE 11/28/2016 PATRIA SHEPHERD MD Ot M75.101 UNSP ROTATR-CUFF TEAR/RUPTR OF RIGHT TEREZA 11/28/2016 PATRIA SHEPHERD MD Ot Z01.818 ENCOUNTER FOR OTHER PREPROCEDURAL EXAMIN 11/28/2016 PATRIA SHEPHERD MD Ot Z11.2 ENCOUNTER FOR SCREENING FOR OTHER BACTER 11/28/2016 LETTY WILKINS Ot N83.29 OTHER OVARIAN CYSTS 11/28/2016 LETTY WILKINS Ot N83.201 UNSPECIFIED OVARIAN CYST, RIGHT SIDE 11/28/2016 HAO PHILLIPS MD R Ot Z12.3 1 ENCNTR SCREEN MAMMOGRAM FOR MALIGNANT NE 11/28/2016 CHANNINGECH DO PATRIA S Ot N92.0 EXCESSIVE AND FREQUENT MENSTRUATION WITH 12/02/2016 FENECH DO PATRIA S Ot N92.0 EXCESSIVE AND FREQUENT MENSTRUATION WITH 12/02/2016 FENECH DO PATRIA S Ot Z01.812 ENCOUNTER FOR PREPROCEDURAL LABORATORY E 12/02/2016 CHANNINGECH DO, PATRIA S Ot Z11.2 ENCOUNTER FOR SCREENING FOR OTHER BACTER 12/13/2016 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 Ot D28 .7 BENIGN NEOPLASM OF OTHER SPECIFIED FEMAL 12/13/2016 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 Ot F17.210 NICOTINE DEPENDENCE, CIGARETTES, UNCOMPL 12/13/2016 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 Ot K57.30 DVRTCLOS OF LG INT W/O PERFORATION OR AB 12/13/2016 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 Ot R10.31 RIGHT LOWER QUADRANT PAIN 12/13/2016 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 Ot R11 .2 NAUSEA WITH VOMITING, UNSPECIFIED 12/13/2016 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 Ot R19 .7 DIARRHEA, UNSPECIFIED 12/13/2016 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 Ot Z90.49 ACQUIRED ABSENCE OF OTHER SPECIFIED [...] 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 08/02/2017 RAVINDER BARROSO BRANDY Olson Ot F17.210 NICOTINE DEPENDENCE, CIGARETTES, UNCOMPL 08/02/2017 RAVINDER BARROSO BRANDY Whitney Ot F41.9 ANXIETY DISORDER, UNSPECIFIED 08/02/2017 RAVINDER BARROSO BRANDY Whitney Ot G40.909 EPILEPSY, UNSP, NOT INTRACTABLE, WITHOUT 08/02/2017 RAVINDER BARROSO BRANDY K Ot K21.9 GASTRO-ESOPHAGEAL REFLUX DISEASE WITHOUT 08/02/2017 RAVINDER BARROSO BRANDY Whitney Ot K57.92 DVTRCLI OF INTEST, PART UNSP, W/O PERF O 08/02/2017 RAVINDER BARROSOBRANDY Ot R10.32 LEFT LOWER QUADRANT PAIN 08/02/2017 RAVINDER BARROSOBRANDY Ot Z87.42 PERSONAL HISTORY OF OTH DISEASES OF THE 08/02/2017 RAVINDER BARROSOBRANDY Ot Z87.440 PERSONAL HISTORY OF URINARY (TRACT) INFE 01/11/2019 MISHA SAUNDERS, PATRIA Bella Ot M75.101 UNSP ROTATR-CUFF TEAR/RUPTR OF RIGHT TEREZA 01/11/2019 MISHA SAUNDERS, PATRIA Bella Ot Z01.818 ENCOUNTER FOR OTHER PREPROCEDURAL EXAMIN 01/11/2019 PATRIA SHEPHERD MD Ot Z11.2 ENCOUNTER FOR SCREENING FOR OTHER BACTER 01/11/2019 LETTY WILKINS Ot N83.29 OTHER OVARIAN CYSTS 01/11/2019 LETTY WILKINS Ot N83.201 UNSPECIFIED OVARIAN CYST, RIGHT SIDE 01/11/2019 JACQUELINE SAUNDERS, HAO Rangel Ot Z12.3 1 ENCNTR SCREEN MAMMOGRAM FOR MALIGNANT NE 01/22/2019 CHEYENNE ECHOLS APRN Ot F41 .9 ANXIETY DISORDER, UNSPECIFIED 01/22/2019 CHEYENNE ECHOLS APRN Ot G40.909 EPILEPSY, UNSP, NOT INTRACTABLE, WITHOUT 01/22/2019 CHEYENNE ECHOLS APRN Ot K21 .9 GASTRO-ESOPHAGEAL REFLUX DISEASE WITHOUT 01/22/2019 CHEYENNE ECHOLS APRN Ot K57.30 DVRTCLOS OF LG INT W/O PERFORATION OR AB 01/22/2019 CHEYENNE ECHOLS APRN Ot K58 .9 IRRITABLE BOWEL SYNDROME WITHOUT DIARRHE 01/22/2019 CHEYENNE ECHOLS APRN Ot R10.32 LEFT LOWER QUADRANT PAIN 01/22/2019 CHEYENNE ECHOSL APRN Ot Z86.010 PERSONAL HISTORY OF COLONIC POLYPS 01/22/2019 CHEYENNE ECHOLS APRN Ot Z87.19 PERSONAL HISTORY OF OTHER DISEASES OF TH 01/22/2019 CHEYENNE ECHOLS APRN Ot Z87.440 PERSONAL HISTORY OF URINARY (TRACT) INFE 01/22/2019 CHEYENNE ECHOLS APRN Ot Z87.448 PERSONAL HISTORY OF OTHER DISEASES OF UR 01/22/2019 CHEYENNE ECHOLS APRN Ot Z87.891 PERSONAL HISTORY OF NICOTINE DEPENDENCE 01/22/2019 CHEYENNE ECHOLS APRN Ot Z88 .2 ALLERGY STATUS TO SULFONAMIDES STATUS 01/22/2019 CHEYENNE ECHOLS APRN Ot Z88 .5 ALLERGY STATUS TO NARCOTIC AGENT STATUS 01/22/2019 CHEYENNE ECHOLS APRN Ot Z91.041 RADIOGRAPHIC DYE ALLERGY STATUS 01/22/2019 CHEYENNE ECHOLS APRN Ot Z98.890 OTHER SPECIFIED POSTPROCEDURAL STATES 01/26/2019 CHEYENNE ECHOLS APRN Ot F41 .9 ANXIETY DISORDER, UNSPECIFIED 01/26/2019 CHEYENNE ECHOLS APRN Ot G40.909 EPILEPSY, UNSP, NOT INTRACTABLE, WITHOUT 01/26/2019 CHEYENNE ECHOLS APRN Ot K21 .9 GASTRO-ESOPHAGEAL REFLUX DISEASE WITHOUT 01/26/2019 CHEYENNE ECHOLS APRN Ot K57.30 DVRTCLOS OF LG INT W/O PERFORATION OR AB 01/26/2019 CHEYENNE ECHOLS APRN Ot K58 .9 IRRITABLE BOWEL SYNDROME WITHOUT DIARRHE 01/26/2019 CHEYENNE [...] OTHER DISEASES OF UR 01/26/2019 CHEYENNE ECHOLS APRN Ot Z87.891 PERSONAL HISTORY OF NICOTINE DEPENDENCE 01/26/2019 CHEYENNE ECHOLS APRN Ot Z88 .2 ALLERGY STATUS TO SULFONAMIDES STATUS 01/26/2019 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 Ot Z88 .5 ALLERGY STATUS TO NARCOTIC AGENT STATUS 01/26/2019 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 Ot Z91.041 RADIOGRAPHIC DYE ALLERGY STATUS 01/26/2019 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 Ot Z98.890 OTHER SPECIFIED POSTPROCEDURAL STATES 02/05/2019 AN LAYTON DO Ot I10 ESSENTIAL (PRIMARY) HYPERTENSION 02/05/2019 AN LAYTON DO Ot I34. 1 NONRHEUMATIC MITRAL (VALVE) PROLAPSE 02/05/2019 AN LAYTON DO Ot K21. 9 GASTRO-ESOPHAGEAL REFLUX DISEASE WITHOUT 02/05/2019 AN LAYTON DO Ot K29. 00 ACUTE GASTRITIS WITHOUT BLEEDING 02/05/2019 AN LAYTON DO Ot K57. 30 DVRTCLOS OF LG INT W/O PERFORATION OR AB 02/05/2019 AN LAYTON DO Ot Z87.891 PERSONAL HISTORY OF NICOTINE DEPENDENCE 02/08/2019 AN LAYTON DO Ot Z01.818 ENCOUNTER FOR OTHER PREPROCEDURAL EXAMIN 02/10/2019 AN LAYTON DO Ot R10. 32 LEFT LOWER QUADRANT PAIN 02/10/2019 AN LAYTON DO Ot I10 ESSENTIAL (PRIMARY) HYPERTENSION 02/10/2019 AN LAYTON DO Ot I34. 1 NONRHEUMATIC MITRAL (VALVE) PROLAPSE 02/10/2019 AN LAYTON DO Ot K21. 9 GASTRO-ESOPHAGEAL REFLUX DISEASE WITHOUT 02/10/2019 AN LAYTON DO Ot K29. 00 ACUTE GASTRITIS WITHOUT BLEEDING 02/10/2019 AN LAYTON DO Ot K57. 30 DVRTCLOS OF LG INT W/O PERFORATION OR AB 02/10/2019 AN LAYTON DO Ot Z87.891 PERSONAL HISTORY OF NICOTINE DEPENDENCE 02/12/2019 AN LAYTON DO Ot I10 ESSENTIAL (PRIMARY) HYPERTENSION 02/12/2019 AN LAYTON DO Ot I34. 1 NONRHEUMATIC MITRAL (VALVE) PROLAPSE 02/12/2019 AN LAYTON DO Ot K21. 9 GASTRO-ESOPHAGEAL REFLUX DISEASE WITHOUT 02/12/2019 AN LAYTON DO Ot K29. 00 ACUTE GASTRITIS WITHOUT BLEEDING 02/12/2019 AN LAYTON DO Ot K57. 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 32 LEFT LOWER QUADRANT PAIN 04/12/2019 AN LAYTON DO Ot R10. 32 LEFT LOWER QUADRANT PAIN 01/20/2020 AN LAYTON DO Ot R10. 32 LEFT LOWER QUADRANT PAIN Procedures Code Description Performed [place] [address] KAYLA V PSYTX 45/50 MIN 06/18/2012 56663 KAYLA V PSYTX 45/50 MIN 07/02/2012 80027 KAYLA V PSYTX 45/50 MIN 07/17/2012 84579 KAYLA V PSYTX 45/50 MIN 08/06/2012 30072 KAYLA V PSYTX 45/50 MIN 08/20/2012 04756 PSYT X PT&/FAMILY 45 MINUTES 09/23/2012 14094 PSYT X PT&/FAMILY 45 MINUTES 10/27/2012 69397 PSYT X PT&/FAMILY 45 MINUTES 11/12/2012 72982 PSYT X PT&/FAMILY 45 MINUTES 11/24/2012 35779 PSYT X PT&/FAMILY 45 MINUTES 12/09/2012 38916 PSYT X PT&/FAMILY 45 MINUTES 12/24/2012 89589 PSYT X PT&/FAMILY 45 MINUTES 01/13/2013 57788 PSYT X PT&/FAMILY 45 MINUTES 02/03/2013 24289 PSYT X PT&/FAMILY 45 MINUTES 02/12/2013 99877 ROUT INE VENIPUNCTURE 04/06/2013 54323 CBC 04/06/2013 06385 LIPI D PANEL 04/06/2013 67829 CMP 04/06/2013 [id number] GF R CALC (RESULT ONLY) 04/06/2013 68475 MAMM OGRAM, SCREENING 04/14/2013 99793 PSYT X PT&/FAMILY 45 MINUTES 05/11/2013 74625 PSYT X PT&/FAMILY 45 MINUTES 06/17/2013 01469 PSYT X PT&/FAMILY 45 MINUTES 07/02/2013 41550 PSYT X PT&/FAMILY 45 MINUTES 08/26/2013 50128 PSYT X PT&/FAMILY 45 MINUTES 10/08/2013 56372 PSYT X PT&/FAMILY 45 MINUTES 10/21/2013 05321 PSYT X PT&/FAMILY 45 MINUTES 12/17/2013 53121 PSYT X PT&/FAMILY 45 MINUTES 01/18/2014 97399 PSYT X PT&/FAMILY 45 MINUTES 02/15/2014 62386 PSYT X PT&/FAMILY 45 MINUTES 03/17/2014 94240 ROUT INE VENIPUNCTURE 05/23/2014 27526 CMP 05/23/2014 10758 LIPI D PANEL 05/23/2014 [id number] GF R CALC (RESULT ONLY) 05/23/2014 10025 CBC 05/23/2014 22449 PSYT X PT&/FAMILY 45 MINUTES 05/24/2014 94853 PSYT X PT&/FAMILY 45 MINUTES 06/14/2014 41407 PSYT X PT&/FAMILY 45 MINUTES 07/15/2014 Obstetric Patria [place]on 07/28/[address] A BDOMEN AND PELVIS W/CONTRAST 07/29/2014 93789 CBC 07/29/2014 76697 US P ELVIC COMPL (REFLEX CPT- 47412) 08/08/2014 78473 PSYT X PT&/FAMILY 45 MINUTES 08/12/2014 63146 ROUT INE VENIPUNCTURE 10/18/2014 44717 A1C (IN-HOUSE) 10/18/2014 99423 CMP 10/18/2014 85492 LIPI D PANEL 10/18/2014 [id number] GF R CALC (RESULT ONLY) 10/18/2014 53203 XRAY SHOULDER RIGHT COMP 2 VIEWS 11/29/2014 Orthopedi Patria Shepherd 12/08/2014 01159 PSYT X PT&/FAMILY 45 MINUTES 12/08/2014 Results Test Result Range Comp. Metabolic Panel (14) - 09/30/16 13 :55 Glucose, Serum 104 mg/dL 65-99 BUN 14 mg/dL 6-24 Creatinine, Serum 0.74 mg/dL 0.57-1.00 eGFR If NonAfricn Am 95 mL/min/1.73 >59 eGFR If Africn Am 109 mL/min/1.73 >5 9 BUN/Creatinine Ratio 19 9-23 Sodium, Serum 140 mmol/L 134-144 Potassium, Serum 4.9 mmol/L 3.5-5.2 Chloride, Serum 101 mmol/L 96-106 Carbon Dioxide, Total 23 mmol/L 18-29 Calcium, Serum 9.5 mg/dL 8.7-10.2 Protein, Total, Serum 6.9 g/dL 6.0-8.5 Albumin, Serum 4.4 g/dL 3.5-5.5 Globulin, Total 2.5 g/dL 1.5-4.5 A/G Ratio 1.8 1.1-2.5 Bilirubin, Total 0.3 mg/dL 0.0-1.2 Alkaline Phosphatase, S 77 IU/L 39-117 AST (SGOT) 11 IU/L 0-40 ALT (SGPT) 8 IU/L 0-32 Lipid Panel - 09/30/16 13:55 Cholesterol, Total 200 mg/dL 100-199 Triglycerides 74 mg/dL 0-149 HDL Cholesterol 50 mg/dL >39 VLDL Cholesterol Wilbert 15 mg/dL 5-40 LDL Cholesterol Calc 135 mg/dL 0-99 Complete blood count (CBC) with automate d white blood cell (WBC) differential - 11/26/16 09:25 Blood leukocytes automated count (number/volume) 12.2 10*3/uL 4.3-11.0 Blood erythrocytes automated count (number/volume) 4.58 10*6/uL 4.35-5.85 Venous blood hemoglobin measurement (mass/volume) 14.2 g/dL 11.5-16.0 Blood hematocrit (volume fraction) 42 % 35-52 Automated erythrocyte mean corpuscular volume 92 [ foz_us] 80-99 Automated erythrocyte mean corpuscular h emoglobin (mass per erythrocyte) 31 pg 25-34 Automated erythrocyte mean corpuscular h emoglobin concentration measurement (mass/volume) 34 g/dL 32-36 Automated erythrocyte distribution width ratio 12. 6 % 10.0- 14.5 Automated blood platelet count [...] 10*3 1.0-4.0 Blood monocytes automated count (number/volume) 0. 7 10*3 0.0-1.0 Automated eosinophil count 0.2 10*3/uL 0 .0-0.3 Automated blood basophil count (count/volume) 0.1 10*3/uL 0.0-0.1 Blood type T Indirect antibody screen pa pérez - 11/26/16 09:25 ABO+Rh group AP NRG Blood group antibody screen NEGATIVE NR G Methicillin resistant Staphylococcus aur eus (MRSA) screening culture - 11/26/16 09:25 Methicillin resistant Staphylococcus aureus (MRSA) scr eening culture NEG NRG Urine beta human chorionic gonadotropin (hCG) measurement - 11/28/16 07:10 Urine beta human chorionic gonadotropin (hCG) measurem ent NEGATIVE NEGATIVE Blood type T Indirect antibody screen pa pérez - 11/28/16 07:12 ABO+Rh group AP NRG Transfusion band number [id number] NRG Blood group antibody screen NEGATIVE NR G Complete blood count (CBC) with automate d white blood cell (WBC) differential - 12/13/16 13:32 Blood leukocytes automated count (number/volume) 10.8 10*3/uL 4.3-11.0 Blood erythrocytes automated count (number/volume) 4.69 10*6/uL 4.35-5.85 Venous blood hemoglobin measurement (mass/volume) 14.3 g/dL 11.5-16.0 Blood hematocrit (volume fraction) 44 % 35-52 Automated erythrocyte mean corpuscular volume 93 [ foz_us] 80-99 Automated erythrocyte mean corpuscular h emoglobin (mass per erythrocyte) 31 pg 25-34 Automated erythrocyte mean corpuscular h emoglobin concentration measurement (mass/volume) 33 g/dL 32-36 Automated erythrocyte distribution width ratio 12. 9 % 10.0- 14.5 Automated blood platelet count [...] 10*3 1.0-4.0 Blood monocytes automated count (number/volume) 0. 7 10*3 0.0-1.0 Automated eosinophil count 0.2 10*3/uL 0 .0-0.3 Automated blood basophil count (count/volume) 0.1 10*3/uL 0.0-0.1 Complete urinalysis with reflex to cultu re - 12/13/16 13:32 Urine color determination YELLOW NRG Urine clarity determination SLIGHTLY CLOUDY NRG Urine pH measurement by test strip 6 5-9 Specific gravity of urine by test strip 1.015 1.016-1.022 Urine protein assay by test strip, semi-quantitative NEGATIVE NEGATIVE Urine glucose detection by automated test strip NE GATIVE NEGATIVE Erythrocytes detection in urine sediment by light micr oscopy NEGATIVE NEGATIVE Urine ketones detection by automated test strip NE GATIVE NEGATIVE Urine nitrite detection by test strip NEGATIVE NEGATIVE Urine total bilirubin detection by test strip NEGA TIVE NEGATIVE Urine urobilinogen measurement by automated test strip (mass/volume) NORMAL NORMAL Urine leukocyte esterase detection by dipstick 1+ NEGATIVE Automated urine sediment erythrocyte cou nt by microscopy (number/high power field) NONE NRG Automated urine sediment leukocyte count by microscopy (number/high power field) [HPF] NRG Bacteria detection in urine sediment by light microsco py TRACE NRG Squamous epithelial cells detection in u rine sediment by light microscopy >50 NRG Crystals detection in urine sediment by light microsco py NONE NRG Casts detection in urine sediment [...] 5-14 Serum or plasma urea nitrogen measurement (mass/volume ) 9 mg/dL 7-18 Serum or plasma creatinine measurement (mass/volume) 0.79 mg/dL 0.60-1.30 Serum or plasma urea nitrogen/creatinine mass ratio 11 NRG Serum or plasma creatinine measurement w ith calculation of estimated glomerular filtration rate > NRG Serum or plasma glucose measurement (mass/volume) 100 mg/dL 70-105 Serum or plasma calcium measurement (mass/volume) 9.1 mg/dL 8.5-10.1 Serum or plasma total bilirubin measurement (mass/volu me) 0.3 mg/dL 0.1-1.0 Serum or plasma alkaline phosphatase juanito surement (enzymatic activity/volume) 91 U/L 40-136 Serum or plasma aspartate aminotransfera se measurement (enzymatic activity/volume) 15 U/L 5-34 Serum or plasma alanine aminotransferase measurement (enzymatic activity/volume) 15 U/L 0-55 Serum or plasma protein measurement (mass/volume) 7.4 g/dL 6.4-8.2 Serum or plasma albumin measurement (mass/volume) 4.3 g/dL 3.2-4.5 Complete blood count (CBC) with automate d white blood cell (WBC) differential - 12/16/16 18:35 Blood leukocytes automated count (number/volume) 13.2 10*3/uL 4.3-11.0 Blood erythrocytes automated count (number/volume) 4.14 10*6/uL 4.35-5.85 Venous blood hemoglobin measurement (mass/volume) 12.8 g/dL 11.5-16.0 Blood hematocrit (volume fraction) 38 % 35-52 Automated erythrocyte mean corpuscular volume 93 [ foz_us] 80-99 Automated erythrocyte mean corpuscular h emoglobin (mass per erythrocyte) 31 pg 25-34 Automated erythrocyte mean corpuscular h emoglobin concentration measurement (mass/volume) 33 g/dL 32-36 Automated erythrocyte distribution width ratio 12. 5 % 10.0- 14.5 Automated blood platelet count [...] 10*3 1.0-4.0 Blood monocytes automated count (number/volume) 0. 8 10*3 0.0-1.0 Automated eosinophil count 0.2 10*3/uL 0 .0-0.3 Automated blood basophil count (count/volume) 0.1 10*3/uL 0.0-0.1 Comprehensive metabolic panel - 12/16/16 18:35 Serum or plasma sodium measurement (moles/volume) 141 mmol/L 135-145 Serum or plasma potassium measurement (moles/volume) 3.6 mmol/L 3.6-5.0 Serum or plasma chloride measurement (moles/volume) 106 mmol/L 98-107 Carbon dioxide 27 mmol/L 21-32 Serum or plasma anion gap determination (moles/volume) 8 mmol/L 5-14 Serum or plasma urea nitrogen measurement (mass/volume ) 9 mg/dL 7-18 Serum or plasma creatinine measurement (mass/volume) 0.79 mg/dL 0.60-1.30 Serum or plasma urea nitrogen/creatinine mass ratio 11 NRG Serum or plasma creatinine measurement w ith calculation of estimated glomerular filtration rate > NRG Serum or plasma glucose measurement (mass/volume) 104 mg/dL 70-105 Serum or plasma calcium measurement (mass/volume) 8.9 mg/dL 8.5-10.1 Serum or plasma total bilirubin measurement (mass/volu me) 0.2 mg/dL 0.1-1.0 Serum or plasma alkaline phosphatase juanito surement (enzymatic activity/volume) 75 U/L 40-136 Serum or plasma aspartate aminotransfera se measurement (enzymatic activity/volume) 9 U/L 5-34 Serum or plasma alanine aminotransferase measurement (enzymatic activity/volume) 10 U/L 0-55 Serum or plasma protein measurement (mass/volume) 6.4 g/dL 6.4-8.2 Serum or plasma albumin measurement (mass/volume) 3.7 g/dL 3.2-4.5 Complete urinalysis with reflex to cultu re - 12/16/16 19:52 Urine color determination YELLOW NRG Urine clarity determination SLIGHTLY CLOUDY NRG Urine pH measurement by test strip 7 5-9 Specific gravity of urine by test strip 1.015 1.016-1.022 Urine protein assay by test strip, semi-quantitative NEGATIVE NEGATIVE Urine glucose detection by automated test strip NE GATIVE NEGATIVE Erythrocytes detection in urine sediment by light micr oscopy NEGATIVE NEGATIVE Urine ketones detection by automated test strip NE GATIVE NEGATIVE Urine nitrite detection by test strip NEGATIVE NEGATIVE Urine total bilirubin detection by test strip NEGA TIVE NEGATIVE Urine urobilinogen measurement by automated test strip (mass/volume) NORMAL NORMAL Urine leukocyte esterase detection by dipstick 1+ NEGATIVE Automated urine sediment erythrocyte cou nt by microscopy (number/high power field) NONE NRG Automated urine sediment leukocyte count by microscopy (number/high power field) [HPF] NRG Bacteria detection in urine sediment by light microsco py NONE NRG Squamous epithelial cells detection in u rine sediment by light microscopy 0-2 NRG Crystals detection in urine sediment by light microsco py NONE NRG Casts detection in urine sediment by light microscopy NONE NRG Mucus detection in urine sediment by light microscopy NEGATIVE NRG Complete urinalysis with reflex to culture NO NRG Methicillin resistant Staphylococcus aur eus (MRSA) screening culture - 12/17/16 11:50 Methicillin resistant Staphylococcus aureus (MRSA) scr eening culture NEG NRG Blood type T Indirect antibody screen pa pérez - 12/19/16 10:47 ABO+Rh group AP NRG Transfusion band number [id number] NRG Blood group antibody screen NEGATIVE NR G Urine beta human chorionic gonadotropin (hCG) measurement - 12/19/16 11:25 Urine beta human chorionic gonadotropin (hCG) measurem ent NEGATIVE NEGATIVE Complete urinalysis with reflex to cultu re - 08/02/17 00:50 Urine color determination YELLOW NRG Urine clarity determination CLEAR NR G Urine pH measurement by test strip 7 5-9 Specific gravity of urine by test strip 1.010 1.016-1.022 Urine protein assay by test strip, semi-quantitative NEGATIVE NEGATIVE Urine glucose detection by automated test strip NE GATIVE NEGATIVE Erythrocytes detection in urine sediment by light micr oscopy NEGATIVE NEGATIVE Urine ketones detection by automated test strip NE GATIVE NEGATIVE Urine nitrite detection by test strip NEGATIVE NEGATIVE Urine total bilirubin detection by test strip NEGA TIVE NEGATIVE Urine urobilinogen measurement by automated test strip (mass/volume) NORMAL NORMAL Urine leukocyte esterase detection by dipstick NEG ATIVE NEGATIVE Automated urine sediment erythrocyte cou nt by microscopy (number/high power field) NONE NRG Automated urine sediment leukocyte count by microscopy (number/high power field) RARE NRG Bacteria detection in urine sediment by light microsco py FEW NRG Squamous epithelial cells detection in u rine sediment by light microscopy 10-25 NRG Crystals detection in urine sediment by light microsco py NONE NRG Casts detection in urine sediment by light microscopy NONE NRG Mucus detection in urine sediment by light microscopy NEGATIVE NRG Complete urinalysis with reflex to culture YES NRG Bacterial urine culture - 08/02/17 00:50 URINE CULTURE RESULTS MORE THAN 3 ISOLATES NRG Complete blood count (CBC) with automate d white blood cell (WBC) differential - 08/02/17 01:30 Blood leukocytes automated count (number/volume) 13.0 10*3/uL 4.3-11.0 Blood erythrocytes automated count (number/volume) 4.03 10*6/uL 4.35-5.85 Venous blood hemoglobin measurement (mass/volume) 12.6 g/dL 11.5-16.0 Blood hematocrit (volume fraction) 37 % 35-52 Automated erythrocyte mean corpuscular volume 92 [ foz_us] 80-99 Automated erythrocyte mean corpuscular h emoglobin (mass per erythrocyte) 31 pg 25-34 Automated erythrocyte mean corpuscular h emoglobin concentration measurement (mass/volume) 34 g/dL 32-36 Automated erythrocyte distribution width ratio 12. 7 % 10.0- 14.5 Automated blood platelet count [...] 10*3 1.0-4.0 Blood monocytes automated count (number/volume) 0. 9 10*3 0.0-1.0 Automated eosinophil count 0.2 10*3/uL 0 .0-0.3 Automated blood basophil count (count/volume) 0.0 10*3/uL 0.0-0.1 Comprehensive metabolic panel - 08/02/17 01:30 Serum or plasma sodium measurement (moles/volume) 139 mmol/L 135-145 Serum or plasma potassium measurement (moles/volume) 3.7 mmol/L 3.6-5.0 Serum or plasma chloride measurement (moles/volume) 104 mmol/L 98-107 Carbon dioxide 26 mmol/L 21-32 Serum or plasma anion gap determination (moles/volume) 9 mmol/L 5-14 Serum or plasma urea nitrogen measurement (mass/volume ) 18 mg/dL 7-18 Serum or plasma creatinine measurement (mass/volume) 0.77 mg/dL 0.60-1.30 Serum or plasma urea nitrogen/creatinine mass ratio 23 NRG Serum or plasma creatinine measurement w ith calculation of estimated glomerular filtration rate > NRG Serum or plasma glucose measurement (mass/volume) 111 mg/dL 70-105 Serum or plasma calcium measurement (mass/volume) 8.9 mg/dL 8.5-10.1 Serum or plasma total bilirubin measurement (mass/volu me) 0.2 mg/dL 0.1-1.0 Serum or plasma alkaline phosphatase juanito surement (enzymatic activity/volume) 86 U/L 40-136 Serum or plasma aspartate aminotransfera se measurement (enzymatic activity/volume) 12 U/L 5-34 Serum or plasma alanine aminotransferase measurement (enzymatic activity/volume) 8 U/L 0-55 Serum or plasma protein measurement (mass/volume) 6.9 g/dL 6.4-8.2 Serum or plasma albumin measurement (mass/volume) 3.7 g/dL 3.2-4.5 Serum or plasma amylase measurement (enz ymatic activity/volume) - 08/02/17 01:30 Serum or plasma amylase measurement (enzymatic activit y/volume) 49 U/L 25-125 Lipase - 08/02/17 01:30 Lipase 9 U/L 8-78 CMP - 01/28/18 10:10 GLUCOSE 109 mg/dL 65-99 UREA NITROGEN (BUN) 11 mg/dL 7-25 CREATININE 0.77 mg/dL 0.50-1.05 eGFR NON-AFR. SOMALI 89 mL/min/1.73m2 > OR = 60 eGFR 103 mL/min/1.73m2 > OR = 60 BUN/CREATININE RATIO NOT APPLICABLE (calc) 6-22 SODIUM 141 mmol/L 135-146 POTASSIUM 4.1 mmol/L 3.5-5.3 CHLORIDE 108 mmol/L 98-110 CARBON DIOXIDE 28 mmol/L 20-31 CALCIUM 9.3 mg/dL 8.6-10.4 PROTEIN, TOTAL 6.9 g/dL 6.1-8.1 ALBUMIN 4.1 g/dL 3.6-5.1 GLOBULIN 2.8 g/dL (calc) 1.9-3.7 ALBUMIN/GLOBULIN RATIO 1.5 (calc) 1.0-2. 5 BILIRUBIN, TOTAL 0.2 mg/dL 0.2-1.2 ALKALINE PHOSPHATASE 81 U/L 33-130 AST 10 U/L 10-35 ALT 8 U/L 6-29 CBC - 12/23/18 11:32 WHITE BLOOD CELL COUNT 10.7 Thousand/uL 3.8-10.8 RED BLOOD CELL COUNT 4.45 Million/uL 3.8 0-5.10 HEMOGLOBIN 12.9 g/dL 11.7-15.5 HEMATOCRIT 39.7 % 35.0-45.0 MCV 89.2 fL 80.0-100.0 MCH 29.0 pg 27.0-33.0 MCHC 32.5 g/dL 32.0-36.0 RDW 12.5 % 11.0-15.0 PLATELET COUNT 343 Thousand/uL 140-400 MPV 10.1 fL 7.5-12.5 ABSOLUTE NEUTROPHILS 5778 cells/uL 1500- 7800 ABSOLUTE LYMPHOCYTES 4002 cells/uL 850-3 900 ABSOLUTE MONOCYTES 685 cells/uL 200-950 ABSOLUTE EOSINOPHILS 182 cells/uL 15-500 ABSOLUTE BASOPHILS 54 cells/uL 0-200 NEUTROPHILS 54 % NRG LYMPHOCYTES 37.4 % NRG MONOCYTES 6.4 % NRG EOSINOPHILS 1.7 % NRG BASOPHILS 0.5 % NRG C DIFFICILE AG + TOXIN A/B. - 01/15/19 1 2:00 C DIFFICILE AG + TOXIN A/B. TNP NR G Stool occult blood screen - 01/15/19 12: 00 Stool gastrointestinal hemoglobin detection NEGATI VE NEGATIVE Stool bacteria identification by culture - 01/15/19 12:00 [id number] - 01/15/19 12:00 Complete blood count (CBC) with automate d white blood cell (WBC) differential - 01/22/19 20:40 Blood leukocytes automated count (number/volume) 10.4 10*3/uL 4.3-11.0 Blood erythrocytes automated count (number/volume) 4.44 10*6/uL 4.35-5.85 Venous blood hemoglobin measurement (mass/volume) 13.4 g/dL 11.5-16.0 Blood hematocrit (volume fraction) 38 % 35-52 Automated erythrocyte mean corpuscular volume 85 [ foz_us] 80-99 Automated erythrocyte mean corpuscular h emoglobin (mass per erythrocyte) 30 pg 25-34 Automated erythrocyte mean corpuscular h emoglobin concentration measurement (mass/volume) 35 g/dL 32-36 Automated erythrocyte distribution width ratio 12. 3 % 10.0- 14.5 Automated blood platelet count [...] 10*3 1.0-4.0 Blood monocytes automated count (number/volume) 0. 8 10*3 0.0-1.0 Automated eosinophil count 0.2 10*3/uL 0 .0-0.3 Automated blood basophil count (count/volume) 0.1 10*3/uL 0.0-0.1 Complete urinalysis with reflex to cultu re - 01/22/19 20:40 Urine color determination YELLOW NRG Urine clarity determination CLEAR NR G Urine pH measurement by test strip 6 5-9 Specific gravity of urine by test strip 1.020 1.016-1.022 Urine protein assay by test strip, semi-quantitative 1+ NEGATIVE Urine glucose detection by automated test strip NE GATIVE NEGATIVE Erythrocytes detection in urine sediment by light micr oscopy NEGATIVE NEGATIVE Urine ketones detection by automated test strip NE GATIVE NEGATIVE Urine nitrite detection by test strip NEGATIVE NEGATIVE Urine total bilirubin detection by test strip NEGA TIVE NEGATIVE Urine urobilinogen measurement by automated test strip (mass/volume) NORMAL NORMAL Urine leukocyte esterase detection by dipstick 1+ NEGATIVE Automated urine sediment erythrocyte cou nt by microscopy (number/high power field) NONE NRG Automated urine sediment leukocyte count by microscopy (number/high power field) NONE NRG Bacteria detection in urine sediment by light microsco py TRACE NRG Squamous epithelial cells detection in u rine sediment by light microscopy 0-2 NRG Crystals detection in urine sediment by light microsco py NONE NRG Casts detection in urine sediment by light microscopy PRESENT NRG Mucus detection in urine sediment by light microscopy NEGATIVE NRG Complete urinalysis with reflex to culture NO NRG Hyaline casts detection in urine sediment by light jagdeep roscopy RARE NRG Comprehensive metabolic panel - 01/22/19 20:40 Serum or plasma sodium measurement (moles/volume) 136 mmol/L 135-145 Serum or plasma potassium measurement (moles/volume) 3.4 mmol/L 3.6-5.0 Serum or plasma chloride measurement (moles/volume) 101 mmol/L 98-107 Carbon dioxide 25 mmol/L 21-32 Serum or plasma anion gap determination (moles/volume) 10 mmol/L 5-14 Serum or plasma urea nitrogen measurement (mass/volume ) 16 mg/dL 7-18 Serum or plasma creatinine measurement (mass/volume) 0.85 mg/dL 0.60-1.30 Serum or plasma urea nitrogen/creatinine mass ratio 19 NRG Serum or plasma creatinine measurement w ith calculation of estimated glomerular filtration rate > NRG Serum or plasma glucose measurement (mass/volume) 130 mg/dL 70-105 Serum or plasma calcium measurement (mass/volume) 9.9 mg/dL 8.5-10.1 Serum or plasma total bilirubin measurement (mass/volu me) 0.4 mg/dL 0.1-1.0 Serum or plasma alkaline phosphatase juanito surement (enzymatic activity/volume) 107 U/L 40-136 Serum or plasma aspartate aminotransfera se measurement (enzymatic activity/volume) 16 U/L 5-34 Serum or plasma alanine aminotransferase measurement (enzymatic activity/volume) 9 U/L 0-55 Serum or plasma protein measurement (mass/volume) 7.8 g/dL 6.4-8.2 Serum or plasma albumin measurement (mass/volume) 4.4 g/dL 3.2-4.5 CALCIUM CORRECTED 9.6 mg/dL 8.5-10.1 Lipase - 01/22/19 20:40 Lipase 12 U/L 8-78 CBC - 04/07/19 15:20 WHITE BLOOD CELL COUNT 11.5 Thousand/uL 3.8-10.8 RED BLOOD CELL COUNT 4.25 Million/uL 3.8 0-5.10 HEMOGLOBIN 12.6 g/dL 11.7-15.5 HEMATOCRIT 37.8 % 35.0-45.0 MCV 88.9 fL 80.0-100.0 MCH 29.6 pg 27.0-33.0 MCHC 33.3 g/dL 32.0-36.0 RDW 11.6 % 11.0-15.0 PLATELET COUNT 333 Thousand/uL 140-400 MPV 10.2 fL 7.5-12.5 ABSOLUTE NEUTROPHILS 6199 cells/uL 1500- 7800 ABSOLUTE LYMPHOCYTES 4244 cells/uL 850-3 900 ABSOLUTE MONOCYTES 748 cells/uL 200-950 ABSOLUTE EOSINOPHILS 242 cells/uL 15-500 ABSOLUTE BASOPHILS 69 cells/uL 0-200 NEUTROPHILS 53.9 % NRG LYMPHOCYTES 36.9 % NRG MONOCYTES 6.5 % NRG EOSINOPHILS 2.1 % NRG BASOPHILS 0.6 % NRG CULTURE, URINE - 06/11/19 19:00 CULTURE, URINE, ROUTINE SEE NOTE NRG CULTURE, THROAT - 08/13/19 19:00 CULTURE, THROAT SEE NOTE NRG Coronavirus SARS-CoV-2 SO 2018 - 0 13:15 Coronavirus Ab [Units/volume] in Serum Negative Negative Encounters ACCT No. Visit Date/Time Discharge Status Pt. Type Provider Facility Loc./Unit Complaint [id number] 10/01/2016 08:38:00 Document Registration [id number] 01/24/2020 07:30:00 020 14:39:00 DIS Outpatient ANH SAUNDERS, PATRIA [facility] PREOP CHRONIC OTITIS MEDIA [id number] 04/12/2019 00:12:00 23:59:59 CLS Preadmit AN LAYTON DO [facility] LAB LLQ PAIN [id number] 01/11/2019 14:58:00 00:01:00 DIS Outpatient AN LAYTON DO [facility] LAB LLQ PAIN [id number] 02/19/2019 08:29:00 23:59:59 CLS Outpatient LETTY WILKINS [facility] RAD SCREENING [id number] 02/05/2019 06:52:00 09:20:00 DIS Outpatient LAYTON AN BARROSO [facility] ENDO LLQ ABD PAIN/LUQ ABD PA IN [id number] 02/02/2019 05:51:00 14:33:00 DIS Outpatient LAYTON AN BARROSO [facility] PREOP COLONOSCOPY/EGD [id number] 01/22/2019 20:25:00 23:04:00 DIS Emergency CHEYENNE ECHOLS APRN [facility] ER ABD PAIN [id number] 01/19/2019 13:45:00 23:59:59 CLS Preadmit LAYTON AN BARROSO [facility] RAD LLQ PAIN [id number] 08/02/2017 00:39:00 04:19:00 DIS Emergency BRANDY CASTELLON DO a [facility] ER LOWER LEFT SIDE PAIN [id number] 12/19/2016 10:32:00 017 16:30:00 DIS Outpatient PATRIA EASTON DO [facility] SDC RIGHT OVARIAN MASS [id number] 12/17/2016 11:34:00 017 12:16:00 DIS Outpatient PATRIA EASTON DO [facility] PREOP RIGHT OVARIAN MASS [id number] 12/16/2016 17:32:00 017 20:53:00 DIS Emergency CAYDEN GUTIERRES MD [facility] ER OVARIAN CYST/PA IN/NAUSEA [id number] 12/13/2016 13:11:00 017 15:15:00 DIS Emergency 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 [facility] ER RIGHT SIDE PAIN [id number] 11/28/2016 06:54:00 017 11:30:00 DIS Out[facility] UTERINE BLEED ING AND MENNORRHAGIA [id number] 11/26/2016 08:59:00 017 13:13:00 DIS Outpatient PATRIA EASTON DO [facility] PREOP HYSTEROSCOPY WITH EUGENE Alcala [id number] 11/14/2016 13:49:00 017 23:59:59 CLS Outpatient HAO PHILLIPS MD [facility] RAD SCREENING BREAST EXAMIN ATION [id number] 10/09/2016 10:02:00 017 23:59:59 CLS Outpatient LETTY WLIKINS [facility] RAD UNSPECIFIED OVARIAN CY ST,RIGHT SIDE [id number] 01/11/2016 15:31:00 016 23:59:59 CLS Outpatient LETTY WILKINS [facility] RAD COMPLEX CYST OF LEFT O VARY [id number] 12/19/2015 11:46:00 016 14:10:00 DIS Outpatient AN LAYTON DO [facility] SDC SCREENING [id number] 12/14/2015 05:36:00 016 13:39:00 DIS Outpatient AN LAYTON DO [facility] PREOP [id number] 11/20/2015 14:00:00 016 23:59:59 CLS Outpatient KAY NARANJO APRN [facility] RAD [id number] 11/10/2015 08:04:00 23:59:59 CLS Outpatient KAY NARANJO APRN [facility] RAD [id number] 06/07/2015 10:25:00 15:20:00 DIS Outpatient PATRIA SHEPHERD MD [facility] [id number] 06/02/2015 08:08:00 23:59:59 CLS Outpatient PATRIA SHEPHERD MD [facility] PREOP RIGHT SHOULDER TORN RO TATOR CUFF [id number] 05/12/2015 10:42:00 23:59:59 CLS Outpatient VITA VINES MOPHEAD SEWER [facility] RAD [id number] 04/17/2015 14:58:00 08:43:00 DIS Outpatient VITA VINES MOPHEAD SEWER [facility] REHAB [id number] 03/27/2015 15:45:00 00:01:00 DIS Outpatient VITA VINES MOPHEAD SEWER [facility] REHAB [id number] 08/08/2014 14:22:00 23:59:59 CLS Outpatient LETTY WILKINS M[employer] SEWER [facility] RAD [id number] 07/29/2014 14:30:00 014 23:59:59 CLS Outpatient SHEILA WILKINSA MOP[place] SEWER [facility] RAD [id number] 05/20/2014 11:15:00 014 23:59:59 CLS Outpatient JEFFERY HALL AUTOMOTIVE MANAGER [facility] RAD [id number] 04/12/2013 10:19:00 013 23:59:59 CLS Outpatient LETTY WILKINS MOP[employer] SEWER [facility] RAD [id number] 01/27/2020 06:13:[address] Outpatient PATRIA KAMARA MD [facility] CHRONIC OTITIS MEDIA [id number] 06/02/2015 08:20:00 Document Registration [id number] 08/08/2014 14:21:00 Document Registration [id number] 08/08/2014 14:21:00 Document Registration [id number] 08/08/2014 14:21:00 Document Registration [id number] 08/08/2014 14:20:00 Document Registration [id number] 09/24/2011 08:05:00 Document Registration [id number] 09/02/2011 10:22:00 Document Registration [id number] 07/09/2011 10:24:00 Document Registration [id number] 07/01/2011 14:03:00 Document Registration [id number] 10/31/2010 12:18:00 Document Registration [id number] 08/29/2010 13:30:00 Document Registration [id number] 10/16/2009 08:14:00 Document Registration [id number] 12/23/2019 13:00:00 12/23/2019 23:59: 59 CLS Outpatient LETTY WILKINS APRN [facility] [id number] 08/13/2019 11:25:00 Document Registration [id number] 06/11/2019 14:25:00 Document Registration [id number] 04/07/2019 14:20:00 Document Registration [id number] 12/23/2018 10:00:00 Document Registration [id number] 01/28/2018 09:20:00 Document Registration [id number] 12/08/2014 12:52:00 12/08/2014 23:59: 59 CLS Outpatient MAYUR LSCS, KVNG Rangel [id number] 11/08/2014 12:54:00 11/08/2014 23:59: 59 CLS Outpatient MAYUR LSCS, KVNG Rangel [id number] 08/12/2014 13:04:00 08/12/2014 23:59: 59 CLS Outpatient MAYUR LSCS, KVNG R [id number] 07/28/2014 17:15:00 07/28/2014 23:59: 59 CLS Outpatient LETTY WILKINS APRN [id number] 07/15/2014 14:12:00 07/15/2014 23:59: 59 CLS Outpatient MAYUR LSCS, KVNG Rangel [id number] 06/21/2014 13:21:00 06/21/2014 23:59: 59 CLS Outpatient ROBERT PIÑA APRN [id number] 06/14/2014 12:59:00 06/14/2014 23:59: 59 CLS Outpatient MAYUR LSCS, KVNG R [id number] 05/24/2014 13:02:00 05/24/2014 23:59: 59 CLS Outpatient MAYUR LSCS, KVNG Claire [id number] 05/23/2014 11:23:00 05/23/2014 23:59: 59 CLS Outpatient FRANKY MARKETING PRODUCTION SPECIALISTLETTY [id number] 03/22/2014 13:28:00 03/22/2014 23:59: 59 CLS Outpatient WAGN MARKETING PRODUCTION SPECIALISTROBERT [id number] 03/22/2014 13:28:00 03/22/2014 23:59: 59 CLS Outpatient WANG MARKETING PRODUCTION SPECIALIST, ROBERT [id number] 03/17/2014 12:58:00 03/17/2014 23:59: 59 CLS Outpatient MAYUR LSCS, KVNG R [id number] 02/15/2014 13:03:00 02/15/2014 23:59: 59 CLS Outpatient MAYUR LSCS, KVNG Rangel [id number] 01/18/2014 13:04:00 01/18/2014 23:59: 59 CLS Outpatient MAYUR LSCS, KVNG Rangel [id number] 01/06/2014 12:49:00 01/06/2014 23:59: 59 CLS Outpatient NATHALIE TORO MD [id number] 12/17/2013 12:57:00 12/17/2013 23:59: 59 CLS Outpatient MAYUR LSCS, KVNG R [id number] 11/25/2013 15:49:00 11/25/2013 23:59: 59 CLS Outpatient NATHALIE TORO MD [id number] 11/04/2013 10:18:00 11/04/2013 23:59: 59 CLS Outpatient FRANKY MARKETING PRODUCTION SPECIALISTLETTY S [id number] 10/21/2013 12:50:00 10/21/2013 23:59: 59 CLS Outpatient MAYUR LSCS, KVNG Rangel [id number] 10/08/2013 12:54:00 10/08/2013 23:59: 59 CLS Outpatient MAYUR LSCS, KVNG Rangel [id number] 08/24/2013 12:56:00 08/24/2013 23:59: 59 CLS Outpatient MAYUR LSCS, KVNG Rangel [id number] 08/13/2013 11:02:00 08/13/2013 23:59: 59 CLS Outpatient NATHALIE TORO MD [id number] 08/13/2013 11:02:00 08/13/2013 23:59: 59 CLS Outpatient EDUARDO COBB JR [id number] 07/02/2013 13:07:00 07/02/2013 23:59: 59 CLS Outpatient KVNG KNIGHT Claire [id number] 06/17/2013 13:16:00 06/17/2013 23:59: 59 CLS Outpatient KVNG KNIGHT Claire [id number] 05/11/2013 13:05:00 05/11/2013 23:59: 59 CLS Outpatient KVNG KNIGHT Claire [id number] 11/24/2012 15:00:00 11/24/2012 23:59: 59 CLS Outpatient [id number] 11/10/2012 15:02:00 11/10/2012 23:59: 59 CLS Outpatient [id number] 10/27/2012 14:59:00 10/27/2012 23:59: 59 CLS Outpatient KVNG KNIGHT Claire [id number] 10/08/2012 12:38:00 10/08/2012 23:59: 59 CLS Outpatient [id number] 09/17/2012 12:56:00 09/17/2012 23:59: 59 CLS Outpatient [id number] 08/20/2012 13:00:00 08/20/2012 23:59: 59 CLS Outpatient KVNG KNIGHT Claire [id number] 08/05/2012 11:00:00 08/05/2012 23:59: 59 CLS Outpatient WILLARD GOEL DDS [id number] 06/18/2012 09:06:00 06/18/2012 23:59:5 9 CLS Outpatient WILLARD GOEL DDS [id number] 04/06/2013 13:44:00 Document Registration [id number] 04/06/2013 13:44:00 Document Registration [id number] 02/11/2013 12:55:00 Document Registration [id number] 01/28/2013 13:06:00 Document Registration [id number] 01/07/2013 13:05:00 Document Registration [id number] 12/24/2012 13:01:00 Document Registration [id number] 12/09/2012 12:57:00 Document Registration
--- OUTSIDE RECORDS SUMMARY | 2020-01-27 10:44 | XMS REPORT ---
Author Author Silvia MERCHANT Organization [facility] Address [address] [place] [address] Care Team Providers Care Inspector [employer] Name Role Phone KVNG MERCHANT Unavailable PROBLEMS Type Condition ICD9-CM Code FGQ27-SZ Code Onset Dates Condition S tatus SNOMED Code Problem Hypertension I10 Active 2745950 3 Problem Generalized anxiety disorder F41.1 A ctive 474801632 Problem History of colon polyps Z86.010 Active 041629512 Problem History of diverticulitis Z87.19 Acti ve [id number] Problem Family history of diabetes mellitus Z83.3 Active 046007194 Problem Excessive and frequent menstruation with irregular cycle N92.1 Active 586826412 Problem Hot flashes N95.1 Active 51507707 8 Problem Gastroesophageal reflux disease with esophagitis K 21.0 Active 475891060 Problem History of ovarian cyst Z87.42 Active 89135092 Problem Diverticulitis K57.92 Active 90847 6006 Problem Dense breast tissue R92.2 Active 390120209 Problem Perimenopausal N95.1 Active 98306 [id number] Problem Mitral valve prolapse I34.1 Active 374076989 Problem Abnormal uterine bleeding (AUB) N93.9 Active 40249110795926 Problem Tachycardia R00.0 Active 1806993 ALLERGIES No Information ENCOUNTERS Encounter Location Date Diagnosis [facility] [address] [facility] [id number] [address] [place] [address] Jan, [facility] [address] [facility] [id number] [address] [place] [id number] Jan, [facility] [address] [facility] [id number] [address] [place] [address] December, Generalized anxiety disorder F41.1 [facility] [address] [facility] [id number] [address] [place] [address] December, [facility] [address] [id number] [address] [place] [id number] 14 Dec, 2019 Generalized anxiety disorder F41.1 and Bereavement Z63.4 [facility] [address] [id number] [address] [place] [id number] 30 Nov, 2019 Generalized anxiety disorder F41.1 and Bereavement Z63.4 [facility] [address] [id number] [address] [place] [id number] 16 Nov, 2019 Generalized anxiety disorder F41.1 and Bereavement Z63.4 [facility] [address] [id number] [address] [place] [phone] 13 Nov, 2019 [facility] [address] [id number] [address] [place] [id number] 08 Nov, 2019 [facility] [address] [id number] [address] [place] [id number] Nov, Generalized anxiety disorder F41.1 [facility] [address] [id number] [address] [place] [id number] 30 Oct, 2019 Generalized anxiety disorder F41.1 and Bereavement Z63.4 [facility] [address] [id number] [address] [place] [phone] 16 Oct, 2019 Acute non-recurrent sinusiti s, unspecified location J01.90 [facility] [address] [id number] [address] [place] [phone] 05 Oct, 2019 Acute non-recurrent frontal sinusitis J01.10 [facility] [address] [id number] [address] [place] [id number] 27 Sep, 2019 Generalized anxiety disorder F41.1 and Bereavement Z63.4 [facility] [address] [id number] [address] [place] [id number] 11 Sep, 2019 Generalized anxiety disorder F41.1 and Bereavement Z63.4 [facility] [address] [id number] [address] [place] [phone] Aug, Generalized anxiety disorder F41.1 and Bereavement Z63.4 [facility] [address] [facility] [id number] [address] [place] [address] Aug, Generalized anxiety disorder F41.1 [facility] [address] [facility] [id number] [address] [place] [address] Aug, Viral upper respiratory trac t infection J06.9 [facility] [address] [facility] [id number] [address] [place] [address] Jul, Generalized anxiety disorder F41.1 and Bereavement Z63.4 [facility] [address] [facility] [id number] [address] [place] [id number] Jul, Acute non-recurrent frontal sinusitis J01.10 [facility] [address] [facility] [id number] [address] [place] [phone] Jul, [facility] [address] [facility] [id number] [address] [place] [id number] Jul, Sore throat J02.9 and Uvulit is K12.2 [facility] [address] [facility] [id number] [address] [place] [phone] Jul, Generalized anxiety disorder F41.1 [facility] [address] [facility] [id number] [place] [address] Jul, Caries K02.9 [facility] [address] [facility] [id number] [address] [place] [address] Jun, Generalized anxiety disorder F41.1 [facility] [address] [facility] [id number] [address] [place] [id number] Jun, Generalized anxiety disorder F41.1 and Bereavement Z63.4 [facility] [address] [facility] [id number] [address] [place] [address] May, Generalized anxiety disorder F41.1 [facility] [address] [facility] [id number] [address] [place] [address] May, Dysuria R30.0 [facility] [address] [facility] [id number] [address] [place] [address] May, Generalized anxiety disorder F41.1 and Bereavement Z63.4 [facility] [address] [facility] [id number] [address] [place] [address] May, [facility] [address] [facility] [id number] [address] [place] [address] Apr, Generalized anxiety disorder F41.1 and Bereavement Z63.4 [facility] [address] [facility] [id number] [address] [place] [address] Apr, Generalized anxiety disorder F41.1 [facility] [address] [id number] [address] [place] [address] Mar, Caries K02.9 ; Dental examin ation Z01.20 ; Periodontitis K05.30 and Oral health maintenance status requiring routine preventive dental care K08.9 [facility] [address] [facility] [id number] [address] [place] [address] Mar, Generalized anxiety disorder F41.1 [facility] [address] [facility] [id number] [address] [place] [address] Mar, Gastrointestinal hemorrhage associated with gastroduodenitis K29.91 [facility] [address] [facility] [id number] [address] [place] [phone] Mar, Generalized anxiety disorder F41.1 and Bereavement Z63.4 [facility] [address] [facility] [id number] [address] [place] [address] Mar, [facility] [address] [facility] [id number] [address] [place] [address] Mar, [facility] [address] [facility] [id number] [address] [place] [address] Mar, [facility] [address] [facility] [id number] [address] [place] [phone] Mar, Tachycardia R00.0 and Essent ial hypertension I10 [facility] [address] [facility] [id number] [address] [place] [address] Feb, Generalized anxiety disorder F41.1 [facility] [address] [facility] [id number] [address] [place] [address] Feb, Generalized anxiety disorder F41.1 and Bereavement Z63.4 [facility] [address] [place] [id number] [address] [place] [address] Feb, Generalized anxiety disorder F41.1 [facility] [address] [place] [id number] [address] [place] [address] Feb, Generalized anxiety disorder F41.1 and Bereavement Z63.4 [place] [address] [place] [id number] [address] [place] [address] Jan, [facility] [address] [place] [id number] [address] [place] [address] Jan, Breast cancer screening by trenton crenshaw Z12.31 [facility] [address] [place] [id number] [address] [place] [address] Jan, Generalized anxiety disorder F41.1 and Bereavement Z63.4 [facility] [address] [place] [id number] [address] [place] [address] Jan, [facility] [address] [place] [id number] [address] [place] [address] December, Generalized anxiety disorder F41.1 and Bereavement Z63.4 [facility] [address] [place] [id number] [address] [place] [address] December, Diverticulitis K57.92 ; Dysu nick R30.0 ; Other constipation K59.09 and Lower abdominal pain R10.30 [facility] [address] [facility] [id number] [address] [place] [address] Nov, Diverticulitis K57.92 [facility] [address] [facility] [id number] [address] [place] [address] Nov, Generalized anxiety disorder F41.1 and Bereavement Z63.4 [facility] [address] [facility] [id number] [address] [place] [address] Nov, Generalized anxiety disorder F41.1 and Bereavement Z63.4 [facility] [address] [facility] [id number] [address] [place] [address] Nov, Diverticulitis K57.92 [facility] [address] [facility] [id number] [address] [place] [address] Oct, Diverticulitis K57.92 [facility] [address] [facility] [id number] [address] [place] [address] Oct, Diverticulitis K57.92 [facility] [address] [facility] [id number] [address] [place] [address] Oct, Generalized anxiety disorder F41.1 [facility] [address] [facility] [id number] [address] [place] [address] Oct, Right lower quadrant abdomin al pain R10.31 and Diverticulitis K57.92 [facility] [address] [facility] [id number] [address] [place] [address] Sep, Generalized anxiety disorder F41.1 and Bereavement Z63.4 [facility] [address] [facility] [id number] [address] [place] [address] Aug, [facility] [address] [facility] [id number] [address] [place] [address] Aug, Generalized anxiety disorder F41.1 and Bereavement Z63.4 [facility] [address] [facility] [id number] [place] [address] Aug, Caries K02.9 [facility] [address] [facility] [id number] [address] [place] [address] Jul, Generalized anxiety disorder F41.1 and Bereavement Z63.4 [facility] [address] [facility] [id number] [address] [place] [address] Jul, Other acute gastritis withou t hemorrhage K29.00 ; Generalized anxiety disorder F41.1 ; Tachycardia R00.0 and Essential hypertension I10 [facility] [address] [facility] [id number] [address] [place] [address] Jul, Generalized anxiety disorder F41.1 and Bereavement Z63.4 [facility] [address] [facility] [id number] [address] [place] [address] Jun, Generalized anxiety disorder F41.1 and Bereavement Z63.4 [facility] [address] [facility] [id number] [address] [place] [address] Jun, Generalized anxiety disorder F41.1 and Bereavement Z63.4 [facility] [address] [facility] [id number] [place] [address] Jun, Dental examination Z01.20 [facility] [address] [facility] [id number] [address] [place] [address] 22 May, 2018 Generalized anxiety disorder F41.1 and Bereavement Z63.4 [facility] [address] [facility] [id number] [address] [place] [id number] 08 May, 2018 Encounter for immunization Z 23 [facility] [address] [facility] [id number] [address] [place] [address] 08 May, 2018 Generalized anxiety disorder F41.1 and Bereavement Z63.4 [facility] [address] [facility] [id number] [address] [place] [address] May, [facility] [address] [facility] [id number] [address] [place] [address] Apr, Generalized anxiety disorder F41.1 and Bereavement Z63.4 [facility] [address] [facility] [id number] [address] [place] [address] Apr, [facility] [address] [id number] [address] [place] [address] Apr, Diverticulitis K57.92 [facility] [address] [id number] [address] [place] [address] Apr, Generalized anxiety disorder F41.1 and Bereavement Z63.4 [facility] [address] [facility] [id number] [address] [place] [address] Mar, [facility] [address] [id number] [address] [place] [address] Mar, Diverticulitis K57.92 [facility] [address] [id number] [address] [place] [address] Mar, Generalized anxiety disorder F41.1 and Bereavement Z63.4 [facility] [address] [facility] [id number] [address] [place] [address] Mar, Hypertension I10 [facility] [address] [id number] [address] [place] [id number] Mar, Generalized anxiety disorder F41.1 and Bereavement Z63.4 [facility] [address] [facility] [id number] [address] [place] [address] Feb, Generalized anxiety disorder F41.1 and Bereavement Z63.4 [facility] [address] [facility] [id number] [address] [place] [address] Feb, [facility] [address] [facility] [id number] [address] [place] [address] Feb, Generalized anxiety disorder F41.1 and Bereavement Z63.4 [facility] [address] [facility] [id number] [address] [place] [address] Feb, Generalized anxiety disorder F41.1 and Bereavement Z63.4 [facility] [address] [facility] [id number] [address] [place] [address] Jan, Hypertension I10 and Acute n on-recurrent maxillary sinusitis J01.00 [facility] [address] [id number] [address] [place] [address] December, [facility] [address] [id number] [address] [place] [address] December, Hypertension I10 [facility] [address] [id number] [address] [place] [address] December, Generalized anxiety disorder F41.1 [facility] [address] [id number] [address] [place] [address] Oct, Encounter for dental examina tion Z01.20 [facility] [address] [id number] [address] [place] [address] Oct, Encounter for dental examina tion Z01.20 [facility] [address] [id number] [address] [place] [address] Oct, Dental examination Z01.20 [facility] [address] [id number] [address] [place] [address] Oct, Generalized anxiety disorder F41.1 [facility] [address] [id number] [address] [place] [address] Aug, Dental examination Z01.20 [facility] [address] [id number] [address] [place] [address] Aug, Generalized anxiety disorder F41.1 [facility] [address] [id number] [address] [place] [address] Aug, [facility] [address] [id number] [address] [place] [address] Aug, Encounter for dental examina tion Z01.20 [facility] [address] [id number] [address] [place] [address] Aug, Subacute maxillary sinusitis J01.00 [facility] [address] [id number] [address] [place] [address] 22 Jul, 2017 Dental examination Z01.20 [facility] [address] [id number] [address] [place] [address] 19 Jul, 2017 Generalized anxiety disorder F41.1 [facility] [address] [id number] [address] [place] [address] 11 Jul, 2017 Diverticulitis K57.92 [facility] [address] [id number] [address] [place] [address] 28 Jun, 2017 Encounter for immunization Z 23 [facility] [address] [id number] [address] [place] [address] 22 Jun, 2017 Dental examination Z01.20 [facility] [address] [id number] [address] [place] [address] 14 Jun, 2017 Generalized anxiety disorder F41.1 [facility] [address] [id number] [address] [place] [address] 07 Jun, 2017 Dental examination Z01.20 [facility] [address] [id number] [address] [place] [address] May, [facility] [address] [id number] [address] [place] [address] [id number] May, Dental examination Z01.20 [facility] [address] [id number] [address] [place] [address] [id number] May, Dental examination Z01.20 [facility] [address] [id number] [address] [place] [address] May, Dental examination Z01.20 [facility] [address] [id number] [address] [place] [address] May, [facility] [address] [id number] [address] [place] [address] May, Generalized anxiety disorder F41.1 [facility] [address] [id number] [address] [place] [address] May, Localized edema R60.0 ; Yeas t vaginitis B37.3 and Gastroesophageal reflux disease with esophagitis K21.0 [facility] [address] [id number] [address] [place] [address] [id number] Apr, Dental examination Z01.20 [facility] [address] [id number] [address] [place] [address] Apr, Dental examination Z01.20 [facility] [address] [id number] [address] [place] [address] 05 Apr, 2017 Dental examination Z01.20 [facility] [address] [id number] [address] [place] [address] Mar, Dyspepsia R10.13 [facility] [address] [id number] [address] [place] [address] Mar, Generalized anxiety disorder F41.1 [facility] [address] [id number] [address] [place] [address] Mar, Encounter for dental examina tion Z01.20 [facility] [address] [id number] [address] [place] [address] [id number] Mar, [facility] [address] [id number] [address] [place] [address] [id number] Mar, Dental examination Z01.20 [facility] [address] [id number] [address] [place] [address] Feb, Hypertension I10 and Tachyca rdia R00.0 [facility] [address] [id number] [address] [place] [address] Feb, [facility] [address] [id number] [address] [place] [address] Feb, Generalized anxiety disorder F41.1 [facility] [address] [id number] [address] [place] [address] [id number] Feb, Dental examination Z01.20 [facility] [address] [id number] [address] [place] [phone] Jan, Generalized anxiety disorder F41.1 [facility] [address] [id number] [address] [place] [address] December, Generalized anxiety disorder F41.1 [facility] [address] [id number] [address] [place] [address] [id number] December, Encounter for dental examina tion Z01.20 [facility] [address] [id number] [address] [place] [address] Nov, [facility] [address] [id number] [address] [place] [phone] Nov, [facility] [address] [id number] [address] [place] [id number] Nov, Generalized anxiety disorder F41.1 [facility] [address] [id number] [address] [place] [address] Oct, [facility] [address] [id number] [address] [place] [address] [id number] Oct, Dental examination Z01.20 [facility] [address] [id number] [address] [place] [address] Oct, Vaginal dryness N89.8 [facility] [address] [id number] [address] [place] [phone] Oct, Pseudoseizures F44.5 [facility] [address] [id number] [address] [place] [address] Oct, Generalized anxiety disorder F41.1 [facility] [address] [id number] [address] [place] [id number] Sep, Abnormal uterine bleeding (A UB) N93.9 ; Vaginal dryness N89.8 and Screening breast examination Z12.39 [facility] [address] [id number] [address] [place] [id number] Sep, Dental examination Z01.20 [facility] [address] [facility] [id number] [address] [place] [id number] Sep, Generalized anxiety disorder F41.1 [facility] [address] [facility] [id number] [address] [place] [id number] 06 Sep, 2016 Unspecified ovarian cyst, ri ght side N83.201 ; Unspecified ovarian cyst, left side N83.202 ; Yeast infection of the vagina B37.3 ; Mitral valve prolapse I34.1 and Hypertension I10 [facility] [address] [facility] [id number] [address] [place] [id number] Aug, Generalized anxiety disorder F41.1 [facility] [address] [facility] [id number] [address] [place] [id number] Jul, [facility] [address] [place] [id number] [address] [place] [id number] Jul, Generalized anxiety disorder F41.1 [facility] [address] [facility] [id number] [address] [place] [id number] Jun, Generalized anxiety disorder F41.1 [facility] [address] [facility] [id number] [address] [place] [id number] May, Encounter for immunization Z 23 [facility] [address] [facility] [id number] [address] [place] [id number] 17 May, 2016 Generalized anxiety disorder F41.1 and Depressive disorder, not elsewhere classified F32.9 [facility] [address] [facility] [id number] [address] [place] [id number] 28 Apr, 2016 Hypertension I10 [facility] [address] [facility] [id number] [address] [place] [address] 22 Apr, 2016 Cervicalgia M54.2 [facility] [address] [facility] [id number] [address] [place] [id number] 12 Apr, 2016 Cervicalgia M54.2 [facility] [address] [id number] [address] [place] [id number] 09 Mar, 2016 Generalized anxiety disorder F41.1 and Depressive disorder, not elsewhere classified F32.9 [facility] [address] [id number] [address] [place] [address] [id number] 14 Feb, 2016 Visit for dental examination Z01.20 [facility] [address] [id number] [address] [place] [id number] 11 Feb, 2016 Pseudoseizures F44.5 ; Migra ine without status migrainosus, not intractable, unspecified migraine type G43.909 and Essential hypertension I10 [facility] [address] [id number] [address] [place] [address] [id number] 06 Feb, 2016 Dental examination Z01.20 [facility] [address] [id number] [address] [place] [id number] 05 Feb, 2016 Generalized anxiety disorder F41.1 and Depressive disorder, not elsewhere classified F32.9 [facility] [address] [facility] [id number] [address] [place] [address] 27 Jan, 2016 Tachycardia R00.0 [facility] [address] [id number] [address] [place] [address] December, Eustachian tube dysfunction, bilateral H69.83 [facility] [address] [facility] [id number] [address] [place] [address] December, Generalized anxiety disorder F41.1 and Depressive disorder, not elsewhere classified F32.9 [facility] [address] [facility] [id number] [address] [place] [address] Nov, [facility] [address] [id number] [address] [place] [address] Nov, [facility] [address] [facility] [id number] [address] [place] [address] Nov, Hypertension I10 ; Onychomyc osis B35.1 [...] cyst of left ovary N83.29 [facility] [address] [place] [id number] [address] [place] [address] 14 Nov, 2015 Sinusitis J32.9 [facility] [address] [address] Oct, Complex cyst of left ovary N 83.29 [facility] [address] [address] Oct, Onychomycosis B35.1 [facility] [id number] [place] [address] [id number] Oct, Dental examination Z01.[address] [address] Oct, Well woman exam Z01.419 ; En [...] History of colon polyps Z86.010 [facility] [address] [place] [id number] [address] [place] [address] Oct, Generalized anxiety disorder F41.1 and Depressive disorder, not elsewhere classified F32.9 [facility] [place] [address] [place] [id number] [address] [place] [address] Sep, Hypertension I10 and Onychom ycosis B35.1 [facility] [address] [place] [id number] [place] [id number] 16 Sep, 2015 Skin tags, multiple acquired L91.8 [facility] [address] [id number] [address] [place] [address] Aug, [facility] [address] [id number] [address] [place] [address] Aug, [facility] [address] [id number] [address] [place] [address] Aug, [facility] [address] [id number] [address] [place] [address] Aug, Generalized anxiety disorder F41.1 and Depressive disorder, not elsewhere classified F32.9 [facility] [address] [id number] [address] [place] [address] Jul, Skin lesion L98.9 [facility] [address] [id number] [address] [place] [address] Jun, Generalized anxiety disorder F41.1 and Depressive disorder, not elsewhere classified F32.9 [facility] [address] [id number] [address] [place] [address] Jun, [facility] [address] [facility] [id number] [address] [place] [address] Jun, Generalized anxiety disorder F41.1 [facility] [address] [facility] [id number] [address] [place] [address] May, Encounter for immunization Z 23 and Right shoulder pain M25.511 [facility] [address] [id number] [address] [place] [address] Apr, [facility] [address] [facility] [id number] [address] [place] [id number] 14 Apr, 2015 Generalized anxiety disorder 300.02 and Depressive disorder, not elsewhere classified 311 [facility] [address] [id number] [address] [place] [address] [id number] Mar, Dental examination V72.2 [facility] [address] [facility] [id number] [address] [place] [address] Mar, Generalized anxiety disorder 300.02 and Depressive disorder, not elsewhere classified 311 [facility] [address] [facility] [id number] [address] [place] [address] Mar, Depression, major, recurrent , 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.35 and 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 [facility] [address] [facility] [id number] [address] [place] [address] Feb, Generalized anxiety disorder 300.02 and Depressive disorder, not elsewhere classified 311 [facility] [address] [id number] [address] [place] [address] [id number] Feb, Dental examination V72.2 [facility] [address] [facility] [id number] [address] [place] [address] Jan, Generalized anxiety disorder 300.02 and Depressive disorder, not elsewhere classified 311 [facility] [address] [facility] [id number] [address] [place] [address] Jan, [facility] [address] [facility] [id number] [address] [place] [address] December, Generalized anxiety disorder 300.02 and Depressive disorder, not elsewhere classified 311 [facility] [address] [facility] [id number] [address] [place] [address] December, Major depressive disorder, r ecurrent, unspecified 296.30 and Panic disorder with agoraphobia 300.21 [facility] [address] [facility] [id number] [address] [place] [address] Nov, [facility] [address] [facility] [id number] [address] [place] [address] Nov, [facility] [address] [facility] [id number] [address] [place] [id number] Oct, [facility] [address] [facility] [id number] [address] [place] [address] Oct, [facility] [address] [id number] [address] [place] [address], [place] [address] Oct, [facility] [address] [id number] [address] [place] [address], [place] [address] Oct, [facility] [address] [id number] [address] [place] [address], [place] [address] Sep, 2014 [facility] [address] [id number] [address] [place] [address], [place] [address] Sep, 2014 [facility] [address] [id number] [address] [place] [address], [place] [address] Sep, 2014 [facility] [address] [id number] [address] [place] [address], [place] [address] Sep, 2014 [facility] [address] [id number] [address] [place] [address], [place] [address] Sep, 2014 [facility] [address] [id number] [address] [place] [address], [place] [address] Sep, 2014 [facility] [address] [id number] [address] [place] [address], [place] [address] Sep, [facility] [address] [id number] [address] [place] [address], [place] [address] Sep, [facility] [address] [id number] [address] [place] [address] Sep, [facility] [address] [id number] [address] [place] [address] Sep, [facility] [address] [id number] [address] [place] [address], [place] [address] Aug, [facility] [address] [id number] [address] [place] [address] Aug, [facility] [address] [id number] [address] [place] [id number] Jul, [facility] [address] [id number] [address] [place] [address] Jul, [facility] [address] [id number] [address] [place] [address], [place] [address] Jul, [facility] [address] [id number] [address] [place] [address], [place] [address] Jul, [facility] [address] [id number] [address] [place] [address], [place] [address] Jul, [facility] [address] [id number] [address] [place] [address], [place] [address] Jul, [facility] [address] [id number] [address] [place] [address], [place] [address] Jul, [facility] [address] [id number] [address] [place] [address], [place] [address] Jul, [facility] [address] [id number] [address] [place] [address], [place] [address] Jul, [facility] [address] [id number] [address] [place] [address], [place] [address] Jul, [facility] [address] [id number] [address] [place] [address], [place] [address] Jul, [facility] [address] [id number] [address] [place] [address], [place] [address] Jul, [facility] [address] [id number] [address] [place] [address], [place] [address] Jun, [facility] [address] [id number] [address] [place] [address], [place] [address] Jun, [facility] [address] [id number] [address] [place] [address], [place] [address] May, [facility] [address] [id number] [address] [place] [address], [place] [address] May, [facility] [address] [id number] [address] [place] [address], [place] [address] May, [facility] [address] [id number] [address] [place] [address], [place] [address] May, [facility] [address] [id number] [address] [place] [address], [place] [address] May, [facility] [address] [id number] [address] [place] [address], [place] [address] May, 2013 [facility] [address] [id number] [address] [place] [address], [place] [address] May, 2013 [facility] [address] [id number] [address] [place] [address], [place] [address] May, 2013 [facility] [address] [id number] [address] [place] [address], [place] [address] May, 2013 [facility] [address] [id number] [address] [place] [address], [place] [address] May, 2013 [facility] [address] [id number] [address] [place] [address], [place] [address] May, 2013 [facility] [address] [id number] [address] [place] [address], [place] [address] May, [facility] [address] [id number] [address] [place] [address], [place] [address] 30 Apr, 2013 [facility] [address] [id number] [address] [place] [address], [place] [address] 30 Apr, 2013 [facility] [address] [id number] [address] [place] [address], [place] [address] 29 Apr, 2013 [facility] [address] [id number] [address] [place] [address], [place] [address] 29 Apr, 2013 [facility] [address] [id number] [address] [place] [address], [place] [address] 02 Apr, 2013 [facility] [address] [id number] [address] [place] [address], [place] [address] 02 Apr, 2013 [facility] [address] [id number] [address] [place] [address], [place] [address] Feb, [facility] [address] [id number] [facility] [place] [address] Feb, [facility] [address] [id number] [facility] [place] [address] Feb, [facility] [address] [id number] [facility] [place] [address] Feb, [facility] [address] [id number] [address] [place] [address], [place] [address] Feb, [facility] [address] [id number] [address] [place] [address], [place] [address] Feb, [facility] [address] [id number] [address] [place] [address], [place] [address] Jan, [facility] [address] [id number] [address] [place] [address], [place] [address] Jan, [facility] [address] [id number] [address] [place] [address], [place] [address] Jan, [facility] [address] [id number] [address] [place] [address], [place] [address] Jan, [facility] [address] [id number] [address] [place] [address], [place] [address] Jan, [facility] [address] [id number] [address] [place] [address], [place] [address] Jan, [facility] [address] [id number] [address] [place] [address], [place] [address] Jan, [facility] [address] [id number] [address] [place] [address], [place] [address] Jan, [facility] [address] [id number] [address] [place] [address], [place] [address] December, [facility] [address] [id number] [address] [place] [address], [place] [address] December, [facility] [address] [id number] [address] [place] [address], [place] [address] December, [facility] [address] [id number] [address] [place] [address], [place] [address] December, [facility] [address] [id number] [address] [place] [address], [place] [address] Nov, [facility] [address] [id number] [address] [place] [address], [place] [address] Nov, [facility] [address] [id number] [address] [place] [address], [place] [address] Nov, [facility] [address] [id number] [address] [place] [address], [place] [address] Nov, [facility] [address] [id number] [address] [place] [address], [place] [address] Nov, [facility] [address] [id number] [address] [place] [address], [place] [address] Nov, [facility] [address] [id number] [address] [place] [address], [place] [address] Nov, [facility] [address] [id number] [address] [place] [address], [place] [address] Nov, [facility] [address] [id number] [address] [place] [address], [place] [address] Oct, [facility] [address] [id number] [address] [place] [address], [place] [address] Oct, [facility] [address] [id number] [address] [place] [address], [place] [address] Sep, [facility] [address] [id number] [address] [place] [address], [place] [address] Sep, [facility] [address] [id number] [address] [place] [address], [place] [id number] Sep, [facility] [address] [id number] [address] [place] [address], [place] [address] Sep, [facility] [address] [id number] [address] [place] [address], [place] [address] Sep, [facility] [address] [id number] [address] [place] [address], [place] [address] Sep, [facility] [address] [id number] [address] [place] [address], [place] [address] Aug, [facility] [address] [id number] [address] [place] [address], [place] [address] Aug, [facility] [address] [id number] [address] [place] [address], [place] [address] Aug, [facility] [address] [id number] [address] [place] [address], [place] [address] Aug, [facility] [address] [id number] [address] [place] [address], [place] [address] Jul, [facility] [address] [id number] [address] [place] [address] Jul, [facility] [address] [id number] [address] [place] [address], [place] [address] Jul, [facility] [address] [id number] [address] [place] [address] Jul, [facility] [address] [id number] [address] [place] [address] Jun, [facility] [address] [id number] [address] [place] [address] Jun, [facility] [address] [id number] [address] [place] [address], [place] [address] May, [facility] [address] [id number] [address] [place] [address] May, [facility] [address] [id number] [address] [place] [address] May, [facility] [address] [id number] [address] [place] [address] May, [facility] [address] [id number] [address] [place] [address], [place] [address] May, [facility] [address] [id number] [address] [place] [address], [place] [address] 17 Apr, 2013 [facility] [address] [id number] [address] [place] [address], [place] [address] Apr, [facility] [address] [id number] [address] [place] [address], [place] [address] 29 Mar, 2013 [facility] [address] [id number] [address] [place] [address], [place] [address] Mar, [facility] [address] [id number] [address] [place] [address], [place] [address] Mar, [facility] [address] [id number] [address] [place] [address], [place] [address] Mar, [facility] [address] [id number] [address] [place] [address], [place] [address] Feb, [facility] [address] [id number] [address] [place] [address], [place] [address] Feb, [facility] [address] [id number] [address] [place] [address], [place] [address] Feb, [facility] [address] [id number] [address] [place] [address], [place] [address] Feb, [facility] [address] [id number] [address] [place] [address], [place] [address] Feb, [facility] [address] [id number] [address] [place] [address], [place] [address] Jan, [facility] [address] [id number] [address] [place] [address], [place] [address] Jan, [facility] [address] [id number] [address] [place] [address], [place] [address] 14 Jan, 2013 [facility] [address] [id number] [address] [place] [address], [place] [address] Jan, [facility] [address] [id number] [address] [place] [address], [place] [address] Jan, [facility] [address] [id number] [address] [place] [address], [place] [address] December, [facility] [address] [id number] [address] [place] [address], [place] [address] December, [facility] [address] [id number] [address] [place] [address], [place] [address] Nov, [facility] [address] [id number] [address] [place] [address], [place] [address] Nov, [facility] [address] [id number] [address] [place] [address], [place] [address] Oct, [facility] [address] [id number] [address] [place] [address], [place] [address] Oct, [facility] [address] [id number] [address] [place] [address], [place] [address] 05 Oct, 2012 [facility] [address] [id number] [address] [place] [address], [place] [address] Sep, [facility] [address] [id number] [address] [place] [address], [place] [address] Aug, [facility] [address] [id number] [address] [place] [address], [place] [address] Aug, [facility] [address] [id number] [address] [place] [address], [place] [address] Aug, [facility] [address] [id number] [address] [place] [address], [place] [address] Aug, [facility] [address] [id number] [address] [place] [address], [place] [address] Jul, [facility] [address] [id number] [address] [place] [address], [place] [address] Jul, [facility] [address] [id number] [address] [place] [address], [place] [address] Jul, [facility] [address] [id number] [address] [place] [address], [place] [address] Jul, [facility] [address] [id number] [address] [place] [address], [place] [address] Jul, [facility] [address] [id number] [address] [place] [address], [place] [address] Jul, [facility] [address] [id number] [address] [place] [address], [place] [address] Jul, [facility] [address] [id number] [address] [place] [address], [place] [address] Jul, [facility] [address] [id number] [address] [place] [address], [place] [address] Jun, [facility] [address] [id number] [address] [place] [id number] Jun, [facility] [address] [id number] [address] [place] [address], [place] [address] Jun, [facility] [address] [id number] [address] [place] [address] Jun, [facility] [address] [id number] [address] [place] [address] Jun, [facility] [address] [id number] [address] [place] [id number] Jun, [facility] [address] [id number] [address] [place] [address], [place] [address] May, [facility] [address] [id number] [address] [place] [address] May, [facility] [address] [id number] [address] [place] [address] May, [facility] [address] [id number] [address] [place] [address], [place] [address] 17 May, 2012 [facility] [address] [id number] [address] [place] [address], [place] [address] 26 Apr, 2012 [facility] [address] [id number] [address] [place] [address], [place] [address] 06 Apr, 2012 [facility] [address] [id number] [address] [place] [address], [place] [address] 08 Mar, 2012 [facility] [address] [id number] [address] [place] [address], [place] [address] 28 Jan, 2012 [facility] [address] [id number] [address] [place] [address], [place] [address] 20 Jan, 2012 [facility] [address] [id number] [address] [place] [address], [place] [address] 16 Jan, 2012 [facility] [address] [id number] [address] [place] [address], [place] [address] 15 Jan, 2012 [facility] [address] [id number] [address] [place] [address], [place] [address] 14 Jan, 2012 [facility] [address] [id number] [address] [place] [address], [place] [address] 14 Jan, 2012 [facility] [address] [id number] [address] [place] [address], [place] [address] 07 Jan, 2012 [facility] [address] [id number] [address] [place] [address], [place] [address] December, [facility] [address] [id number] [address] [place] [address], [place] [address] December, [facility] [address] [id number] [address] [place] [address], [place] [address] December, [facility] [address] [id number] [address] [place] [address], [place] [address] December, [facility] [address] [id number] [address] [place] [address], [place] [address] Nov, [facility] [address] [id number] [address] [place] [address], [place] [address] Nov, [facility] [address] [id number] [address] [place] [address], [place] [address] Oct, [facility] [address] [id number] [address] [place] [address], [place] [address] Oct, [facility] [address] [id number] [address] [place] [address], [place] [address] Oct, [facility] [address] [id number] [address] [place] [address], [place] [address] Sep, [facility] [address] [id number] [address] [place] [address], [place] [address] Sep, [facility] [address] [id number] [address] [place] [address], [place] [address] Sep, [facility] [address] [id number] [address] [place] [address], [place] [address] Aug, [facility] [address] [id number] [address] [place] [address], [place] [address] Aug, [facility] [address] [id number] [address] [place] [address], [place] [address] Aug, [facility] [address] [id number] [address] [place] [address], [place] [address] Aug, [facility] [address] [id number] [address] [place] [address], [place] [address] Aug, [facility] [address] [id number] [address] [place] [address], [place] [address] Aug, [facility] [address] [id number] [address] [place] [address], [place] [address] Aug, [facility] [address] [id number] [address] [place] [address], [place] [address] Jul, [facility] [address] [id number] [address] [place] [id number] 02 Jul, 2011 [facility] [address] [id number] [address] [place] [address], [place] [address] 30 Jun, 2011 [facility] [address] [id number] [address] [place] [id number] 28 Jun, 2011 [facility] [address] [id number] [address] [place] [address], [place] [address] 17 Jun, 2011 [facility] [address] [id number] [address] [place] [address], [place] [address] 15 Jun, 2011 [facility] [address] [id number] [address] [place] [address], [place] [address] 14 Jun, 2011 [facility] [address] [id number] [address] [place] [address], [place] [address] 14 Jun, 2011 [facility] [address] [id number] [address] [place] [address] Jun, [facility] [address] [id number] [address] [place] [address], [place] [address] Jun, [facility] [address] [id number] [address] [place] [address] Jun, [facility] [address] [id number] [address] [place] [address] Jun, [facility] [address] [id number] [address] [place] [address] May, [facility] [address] [id number] [address] [place] [address] 31 May, 2011 [facility] [address] [id number] [address] [place] [address] 25 May, 2011 [facility] [address] [id number] [address] [place] [address] 24 May, 2011 [facility] [address] [id number] [address] [place] [address] 18 May, 2011 [facility] [address] [id number] [address] [place] [address], [place] [address] 13 May, 2011 [facility] [address] [id number] [address] [place] [address], [place] [address] 13 Feb, 2011 [facility] [address] [id number] [address] [place] [address], [place] [address] December, [facility] [address] [id number] [address] [place] [address], [place] [address] 29 Jul, 2010 [facility] [address] [id number] [address] [place] [address], [place] [address] 29 Jul, 2010 [facility] [address] [id number] [address] [place] [address], [place] [address] 22 Jul, 2010 [facility] [address] [id number] [address] [place] [address], [place] [address] Jul, [facility] [address] [id number] [address] [place] [address], [place] [address] 15 Jun, 2010 [facility] [address] [id number] [address] [place] [address], [place] [address] 31 Jul, 2009 [facility] [address] [id number] [address] [place] [address], [place] [address] 23 Jul, 2009 [facility] [address] [id number] [address] [place] [address], [place] [address] 23 Jul, 2009 [facility] [address] [id number] [address] [place] [address], [place] [address] 17 Jul, 2009 [facility] [address] [id number] [address] [place] [address], [place] [address] 17 Jul, 2009 [facility] [address] [id number] [address] [place] [address], [place] [address] 10 Jul, 2009 [facility] [address] [id number] [address] [place] [address], [place] [address] 15 Jan, 2009 [facility] [address] [id number] [address] [place] [address] [address] 16 Sep, 2008 [facility] [address] [facility] [id number] [address] [place] [address] 11 Sep, 2008 IMMUNIZATIONS No Known Immunizations SOCIAL HISTORY Never Assessed REASON FOR VISIT PLAN OF CARE VITAL SIGNS MEDICATIONS Unknown Medications RESULTS No Results PROCEDURES Procedure Date Ordered Result Body Site PSYTX PT&/FAMILY 45 MINUTES March 03, 2013 INSTRUCTIONS MEDICATIONS ADMINISTERED No Known Medications [...]
--- OUTSIDE RECORDS SUMMARY | 2020-01-27 10:44 | XMS REPORT ---
Author Author Silvia WILKINS Organization [facility] Address [address] [place] [address] Care Team Providers Care Senior Sales Operations Manager Name Role Phone LETTY WILKINS Unavailable PROBLEMS Type Condition ICD9-CM Code WXM09-TS Code Onset Dates Condition S tatus SNOMED Code Problem Hypertension I10 Active 6301028 3 Problem Generalized anxiety disorder F41.1 A ctive 179748692 Problem History of colon polyps Z86.010 Active 531443133 Problem History of diverticulitis Z87.19 Acti ve [id number] Problem Family history of diabetes mellitus Z83.3 Active 703313459 Problem Excessive and frequent menstruation with irregular cycle N92.1 Active 025932137 Problem Hot flashes N95.1 Active 82953235 8 Problem Gastroesophageal reflux disease with esophagitis K 21.0 Active 653837330 Problem History of ovarian cyst Z87.42 Active 92787276 Problem Diverticulitis K57.92 Active 98588 6006 Problem Dense breast tissue R92.2 Active 089585250 Problem Perimenopausal N95.1 Active 34073 7124765646 Problem Mitral valve prolapse I34.1 Active 594519957 Problem Abnormal uterine bleeding (AUB) N93.9 Active 35395421148657 Problem Tachycardia R00.0 Active 5687594 ALLERGIES No Information ENCOUNTERS Encounter Location Date Diagnosis [facility] [address] [facility] [id number] [address] [place] [phone] Jan, [facility] [address] [facility] [id number] [address] [place] [phone] Jan, [facility] [address] [facility] [id number] [address] [place] [phone] December, Generalized anxiety disorder F41.1 [facility] [address] [facility] [id number] [address] [place] [phone] December, [facility] [address] [id number] [address] [place] [phone] 14 Dec, 2019 Generalized anxiety disorder F41.[address] [facility] [address] [id number] [address] [place] [phone] 30 Nov, 2019 Generalized anxiety disorder F41.[address] [facility] [address] [id number] [address] [place] [phone] 16 Nov, 2019 Generalized anxiety disorder F41.[address] [facility] [address] [id number] [address] [place] [phone] 13 Nov, 2019 [facility] [facility] [address] [id number] [address] [place] [id number] Nov, [facility] [address] [id number] [address] [place] [phone] Nov, Generalized anxiety disorder F41.1 [facility] [address] [id number] [address] [place] [phone] 30 Oct, 2019 Generalized anxiety disorder F41.[address] [facility] [address] [id number] [address] [place] [phone] 16 Oct, 2019 Acute non-recurrent sinusiti s, unspecified location J01.90 [facility] [address] [id number] [address] [place] [phone] 05 Oct, 2019 Acute non-recurrent frontal sinusitis J01.10 [facility] [address] [id number] [address] [place] [phone] 27 Sep, 2019 Generalized anxiety disorder F41.[address] [facility] [address] [id number] [address] [place] [phone] 11 Sep, 2019 Generalized anxiety disorder F41.1 [address]4 [facility] [address] [id number] [address] [place] [phone] 15 Aug, 2019 Generalized anxiety disorder F41.[address] [facility] [address] [facility] [id number] [address] [place] [phone] Aug, Generalized anxiety disorder F41.1 [facility] [address] [facility] [id number] [address] [place] [phone] 06 Aug, 2019 Viral upper respiratory trac t infection J06.9 [facility] [address] [facility] [id number] [address] [place] [phone] Jul, Generalized anxiety disorder F41.[address] [facility] [address] [facility] [id number] [address] [place] [phone] Jul, Acute non-recurrent frontal sinusitis J01.10 [facility] [address] [facility] [id number] [address] [place] [phone] Jul, [facility] [address] [facility] [id number] [address] [place] [phone] Jul, Sore throat J02.9 [address] K12.2 [facility] [address] [facility] [id number] [address] [place] [phone] Jul, Generalized anxiety disorder F41.1 [facility] [address] [facility] [id number] [place] [address] [address], [address] [facility] [address] [facility] [id number] [address] [place] [phone] Jun, Generalized anxiety disorder F41.1 [facility] [address] [facility] [id number] [address] [place] [phone] Jun, Generalized anxiety disorder F41.[address] [facility] [address] [facility] [id number] [address] [place] [phone] May, Generalized anxiety disorder F41.1 [facility] [address] [facility] [id number] [address] [place] [phone] May, Dysuria R30.0 [facility] [address] [facility] [id number] [address] [place] [phone] May, Generalized anxiety disorder F41.1 [address]4 [facility] [address] [facility] [id number] [address] [place] [phone] May, [facility] [address] [facility] [id number] [address] [place] [phone] Apr, Generalized anxiety disorder F41.1 [address]4 [facility] [address] [facility] [id number] [address] [place] [phone] Apr, Generalized anxiety disorder F41.1 [facility] [address] [facility] [id number] [address] [place] [address] Mar, Caries K02.9 ; Dental examin ation Z01.20 ; Periodontitis K05.30 and Oral health maintenance status requiring routine preventive dental care K08.9 [facility] [address] [facility] [id number] [address] [place] [phone] Mar, Generalized anxiety disorder F41.1 [facility] [address] [facility] [id number] [address] [place] [phone] Mar, Gastrointestinal hemorrhage associated with gastroduodenitis K29.91 [facility] [address] [facility] [id number] [address] [place] [phone] Mar, Generalized anxiety disorder F41.1 [address].4 [facility] [address] [facility] [id number] [address] [place] [phone] Mar, [facility] [address] [facility] [id number] [address] [place] [phone] Mar, [facility] [address] [facility] [id number] [address] [place] [phone] Mar, [facility] [id number] [place] [phone] Mar, Tachycardia R00.0 and Essent ial hypertension I10 [facility] [address] [place] [id number] [address] [place] [phone] Feb, Generalized anxiety disorder F41.1 [facility] [address] [place] [id number] [address] [place] [phone] Feb, Generalized anxiety disorder F41.1 [address].4 [facility] [address] [place] [id number] [address] [place] [phone] Feb, Generalized anxiety disorder F41.1 [facility] [address] [address] Feb, Generalized anxiety disorder F41.1 and Bereavement Z63.4 [place] [address] [place] [id number] [address] [place] [phone] Jan, [facility] [address] [place] [id number] [address] [place] [phone] Jan, Breast cancer screening by trenton crenshaw Z12.31 [facility] [address] [address] Jan, Generalized anxiety disorder F41.1 and Bereavement Z63.4 [place] [address] [place] [id number] [address] [place] [phone] Jan, [facility] [address] [place] [id number] [address] [place] [phone] December, Generalized anxiety disorder F41.[address] [facility] [address] [place] [id number] [address] [place] [address] December, Diverticulitis K57.92 ; Dysu nick R30.0 ; Other constipation K59.09 and Lower abdominal pain R10.30 [facility] [address] [place] [id number] [address] [place] [phone] Nov, Diverticulitis K57.92 [facility] [address] [facility] [id number] [address] [place] [phone] Nov, Generalized anxiety disorder F41.[address] [facility] [address] [facility] [id number] [address] [place] [phone] Nov, Generalized anxiety disorder F41.[address]4 [facility] [address] [facility] [id number] [address] [place] [phone] Nov, Diverticulitis K57.92 [facility] [address] [facility] [id number] [address] [place] [phone] Oct, Diverticulitis K57.92 [facility] [address] [facility] [id number] [address] [place] [phone] Oct, Diverticulitis K57.92 [facility] [address] [facility] [id number] [address] [place] [phone] Oct, Generalized anxiety disorder F41.1 [facility] [address] [facility] [id number] [address] [place] [phone] Oct, Right lower quadrant abdomin al pain R10.[address] [facility] [address] [facility] [id number] [address] [place] [phone] Sep, Generalized anxiety disorder F41.[address]4 [facility] [address] [facility] [id number] [address] [place] [phone] Aug, [facility] [address] [facility] [id number] [address] [place] [phone] Aug, Generalized anxiety disorder F41.1 and Bereavement Z63.4 [facility] [address] [id number] [address] [place] [address] Aug, [address] [facility] [address] [facility] [id number] [address] [place] [phone] Jul, Generalized anxiety disorder F41.1 [address]63.4 [facility] [address] [facility] [id number] [address] [place] [phone] Jul, Other acute gastritis withou t hemorrhage K29.00 ; Generalized anxiety disorder F41.1 ; Tachycardia R00.0 and Essential hypertension I10 [facility] [address] [facility] [id number] [address] [place] [phone] Jul, Generalized anxiety disorder F41.[address]4 [facility] [address] [facility] [id number] [address] [place] [phone] Jun, Generalized anxiety disorder F41.1 [address].4 [facility] [address] [facility] [id number] [address] [place] [phone] Jun, Generalized anxiety disorder F41.1 and Bereavement Z63.4 [facility] [address] [id number] [place] [address] Jun, Dental examination Z01.20 [facility] [address] [facility] [id number] [address] [place] [phone] May, Generalized anxiety disorder F41.1 [address] Z63.4 [facility] [address] [facility] [id number] [address] [place] [phone] 08 May, 2018 Encounter for immunization Z 23 [facility] [address] [facility] [id number] [address] [place] [phone] 08 May, 2018 Generalized anxiety disorder F41.1 [address] Z63.4 [facility] [address] [facility] [id number] [address] [place] [phone] May, [facility] [address] [facility] [id number] [address] [place] [phone] Apr, Generalized anxiety disorder F41.1 [address] Z63.4 [facility] [address] [facility] [id number] [address] [place] [phone] 17 Apr, 2018 [facility] [address] [id number] [address] [place] [address] Apr, Diverticulitis K57.92 [facility] [address] [id number] [address] [place] [phone] Apr, Generalized anxiety disorder F41.1 and Bereavement Z63.4 [facility] [address] [id number] [address] [place] [phone] Mar, [facility] [address] [id number] [address] [place] [address] Mar, Diverticulitis K57.92 [facility] [address] [id number] [address] [place] [phone] Mar, Generalized anxiety disorder F41.1 [address]63.4 [facility] [address] [id number] [address] [place] [phone] Mar, Hypertension I10 [facility] [address] [id number] [address] [place] [phone] Mar, Generalized anxiety disorder F41.1 [address] Z63.4 [facility] [address] [id number] [address] [place] [phone] Feb, Generalized anxiety disorder F41.1 [address] Z63.4 [facility] [address] [id number] [address] [place] [phone] Feb, [facility] [address] [id number] [address] [place] [phone] Feb, Generalized anxiety disorder F41.1 [address] Z63.4 [facility] [address] [facility] [id number] [address] [place] [phone] Feb, Generalized anxiety disorder F41.1 [address]63.4 [facility] [address] [facility] [id number] [address] [place] [phone] Jan, Hypertension I10 and Acute n on-recurrent maxillary sinusitis J01.00 [facility] [address] [id number] [address] [place] [phone] December, [facility] [address] [id number] [address] [place] [phone] December, Hypertension I10 [facility] [address] [id number] [address] [place] [phone] December, Generalized anxiety disorder F41.1 [facility] [address] [id number] [address] [place] [phone] Oct, Encounter for dental examina tion Z01.20 [facility] [address] [id number] [address] [place] [phone] Oct, Encounter for dental examina tion Z01.20 [facility] [address] [id number] [address] [place] [address] Oct, Dental examination Z01.20 [facility] [address] [id number] [address] [place] [address] Oct, Generalized anxiety disorder F41.1 [facility] [address] [id number] [address] [place] [phone] Aug, Dental examination Z01.20 [facility] [address] [id number] [address] [place] [phone] Aug, Generalized anxiety disorder F41.1 [facility] [address] [id number] [address] [place] [phone] Aug, [facility] [address] [id number] [address] [place] [phone] Aug, Encounter for dental examina tion Z01.20 [facility] [address] [id number] [address] [place] [phone] Aug, Subacute maxillary sinusitis J01.00 [facility] [address] [id number] [place] [address] 22 Jul, [address] [facility] [address] [id number] [address] [place] [phone] 19 Jul, 2017 Generalized anxiety disorder F41.1 [facility] [address] [id number] [address] [place] [phone] 11 Jul, [address] [facility] [address] [id number] [address] [place] [phone] 28 Jun, 2017 Encounter for immunization Z 23 [facility] [address] [id number] [address] [place] [phone] 22 Jun, [address] [facility] [address] [id number] [address] [place] [phone] 14 Jun, 2017 Generalized anxiety disorder F41.1 [facility] [address] [id number] [address] [place] [phone] 07 Jun, [address] [facility] [address] [id number] [address] [place] [phone] May, [facility] [place] [facility] [address] [id number] [address] [place] [id number] May, Dental examination Z01.20 [facility] [facility] [address] [id number] [address] [place] [id number] May, Dental examination Z01.20 [facility] [address] [id number] [address] [place] [phone] May, Dental examination Z01.20 [facility] [address] [id number] [address] [place] [phone] May, [facility] [address] [id number] [address] [place] [phone] May, Generalized anxiety disorder F41.1 [facility] [address] [id number] [address] [place] [phone] May, Localized edema R60.0 ; Yeas t vaginitis B37.3 and Gastroesophageal reflux disease with esophagitis K21.0 [facility] [facility] [address] [id number] [address] [place] [id number] Apr, Dental examination Z01.20 [facility] [address] [id number] [address] [place] [phone] Apr, Dental examination Z01.20 [facility] [address] [id number] [address] [place] [phone] 05 Apr, [address] [facility] [address] [id number] [address] [place] [phone] Mar, Dyspepsia R10.13 [facility] [address] [id number] [address] [place] [phone] Mar, Generalized anxiety disorder F41.1 [facility] [address] [id number] [address] [place] [phone] Mar, Encounter for dental examina tion Z01.20 [facility] [facility] [address] [id number] [address] [place] [id number] Mar, [facility] [facility] [address] [id number] [address] [place] [id number] Mar, Dental examination Z01.20 [facility] [address] [id number] [address] [place] [phone] Feb, Hypertension I10 and Tachyca rdia R00.0 [facility] [address] [id number] [address] [place] [phone] Feb, [facility] [address] [id number] [address] [place] [phone] Feb, Generalized anxiety disorder F41.1 [facility] [facility] [address] [id number] [address] [place] [id number] Feb, Dental examination Z01.20 [facility] [address] [id number] [address] [place] [phone] Jan, Generalized anxiety disorder F41.1 [facility] [address] [id number] [address] [place] [phone] December, Generalized anxiety disorder F41.1 [facility] [facility] [address] [id number] [address] [place] [address] [phone] December, Encounter for dental examina tion Z01.20 [facility] [address] [id number] [address] [place] [phone] Nov, [facility] [address] [id number] [address] [place] [phone] Nov, [facility] [address] [id number] [address] [place] [phone] Nov, Generalized anxiety disorder F41.1 [facility] [address] [id number] [address] [place] [phone] Oct, [facility] [place] [facility] [address] [id number] [address] [place] [phone] Oct, Dental examination Z01.20 [facility] [address] [id number] [address] [place] [phone] Oct, Vaginal dryness N89.8 [facility] [address] [id number] [address] [place] [phone] Oct, Pseudoseizures F44.5 [facility] [address] [id number] [address] [place] [phone] Oct, Generalized anxiety disorder F41.1 [facility] [address] [id number] [address] [place] [phone] Sep, Abnormal uterine bleeding (A UB) N93.9 ; Vaginal dryness N89.8 and Screening breast examination Z12.39 [facility] [address] [id number] [address] [place] [address] Sep, Dental examination Z01.20 [facility] [address] [id number] [address] [place] [phone] Sep, Generalized anxiety disorder F41.1 [facility] [address] [id number] [address] [place] [phone] 06 Sep, 2016 Unspecified ovarian cyst, ri ght side N83.201 ; Unspecified ovarian cyst, left side N83.202 ; Yeast infection of the vagina B37.3 ; Mitral valve prolapse I34.[address] [facility] [id number] [place] [address] Aug, Generalized anxiety disorder F41.1 [facility] [id number] [place] [address] Jul, [facility] [address] [address] Jul, Generalized anxiety disorder F41.1 [facility] [address] [address] Jun, Generalized anxiety disorder F41.1 [facility] [address] [address] 28 May, 2016 Encounter for immunization Z 23 [facility] [address] [address] 17 May, 2016 Generalized anxiety disorder F41.1 and Depressive disorder, not elsewhere classified F32.9 [facility] [address] [id number] [address] [place] [id number] 28 Apr, [address] [facility] [address] [id number] [address] [place] [address] 22 Apr, 2016 Cervicalgia M54.2 [facility] [address] [id number] [address] [place] [phone] 12 Apr, [address] [facility] [address] [id number] [address] [place] [address] Mar, Generalized anxiety disorder F41.1 and Depressive disorder, not elsewhere classified F32.9 [facility] [facility] [address] [id number] [address] [place] [id number] 14 Feb, 2016 Visit for dental examination Z01.20 [facility] [address] [id number] [address] [place] [address] 11 Feb, 2016 Pseudoseizures F44.5 ; Migra ine without status migrainosus, not intractable, unspecified migraine type G43.909 and Essential hypertension I10 [facility] [address] [id number] [address] [place] [address] [id number] 06 Feb, [address] [facility] [address] [id number] [address] [place] [phone] 05 Feb, 2016 Generalized anxiety disorder F41.1 and Depressive disorder, not elsewhere classified F32.9 [facility] [address] [id number] [address] [place] [phone] Jan, Tachycardia R00.0 [facility] [address] [id number] [address] [place] [phone] December, Eustachian tube dysfunction, bilateral H69.83 [facility] [address] [id number] [address] [place] [phone] December, Generalized anxiety disorder F41.1 and Depressive disorder, not elsewhere classified F32.9 [facility] [address] [id number] [address] [place] [phone] Nov, [facility] [address] [id number] [address] [place] [phone] Nov, [facility] [address] [facility] [id number] [address] [place] [address] Nov, Hypertension I10 ; Onychomyc osis B35.1 [...] and Complex cyst of left ovary N83.29 [place] [address] [address] 14 Nov, 2015 Sinusitis J32.9 [place] [address] [address] Oct, Complex cyst of left ovary N 83.29 [place] [address] [address] Oct, Onychomycosis B35.1 [facility] [id number] [place] [id number] Oct, Dental examination Z01.20 [place] [address] [address] 09 Oct, 2016 Well woman exam Z01.419 [...] R92.2 and History of colon polyps Z86.010 [place] [address] [address] Oct, Generalized anxiety disorder F41.1 and Depressive disorder, not elsewhere classified F32.9 [place] [address] [address] Sep, Hypertension I10 and Onychom ycosis B35.1 [place] [address] [id number] [address] [place] [phone] 16 Sep, 2015 Skin tags, multiple acquired L91.8 [facility] [address] [id number] [address] [place] [phone] Aug, [facility] [address] [id number] [address] [place] [phone] Aug, [facility] [address] [id number] [address] [place] [phone] Aug, [facility] [address] [id number] [address] [place] [phone] Aug, Generalized anxiety disorder F41.1 and Depressive disorder, not elsewhere classified F32.9 [facility] [address] [id number] [address] [place] [phone] Jul, Skin lesion L98.9 [facility] [address] [id number] [address] [place] [phone] Jun, Generalized anxiety disorder F41.1 and Depressive disorder, not elsewhere classified F32.9 [facility] [address] [id number] [address] [place] [phone] Jun, [facility] [address] [facility] [id number] [address] [place] [phone] Jun, Generalized anxiety disorder F41.1 [facility] [address] [facility] [id number] [address] [place] [address] May, Encounter for immunization Z 23 and Right shoulder pain M25.511 [facility] [address] [id number] [address] [place] [phone] Apr, [facility] [address] [facility] [id number] [address] [place] [phone] 14 Apr, 2015 Generalized anxiety disorder 300.02 and Depressive disorder, not elsewhere classified 311 [facility] [address] [id number] [address] [place] [id number] Mar, Dental examination V72.2 [facility] [address] [id number] [address] [place] [phone] Mar, Generalized anxiety disorder 300.02 and Depressive disorder, not elsewhere classified [address] 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 [address] [id number] [address] [place] [phone] Feb, Generalized anxiety disorder 300.02 and Depressive disorder, not elsewhere classified 311 [facility] [address] [id number] [address] [place] [id number] Feb, Dental examination V72.2 [facility] [address] [facility] [id number] [address] [place] [id number] Jan, Generalized anxiety disorder 300.02 and Depressive disorder, not elsewhere classified [address] [facility] [address] [facility] [id number] [address] [place] [phone] Jan, [facility] [address] [id number] [address] [place] [phone] December, Generalized anxiety disorder 300.02 and Depressive disorder, not elsewhere classified [address] [facility] [address] [facility] [id number] [address] [place] [phone] December, Major depressive disorder, r ecurrent, unspecified 296.30 and Panic disorder with agoraphobia 300.21 [facility] [address] [id number] [address] [place] [phone] Nov, [facility] [address] [id number] [address] [place] [phone] Nov, [facility] [address] [facility] [id number] [address] [place] [phone] Oct, [facility] [address] [facility] [id number] [address] [place] [phone] Oct, [facility] [place] [facility] [address] [id number] [address] [place] [address], [place] [address] Oct, [facility] [address] [id number] [address] [place] [address], [place] [address] Oct, [facility] [place] [facility] [address] [id number] [address] [place] [address], [place] [address] Sep, 2014 [facility] [place] [facility] [address] [id number] [address] [place] [address], [place] [address] Sep, 2014 [facility] [address] [id number] [address] [place] [address], [place] [address] Sep, 2014 [facility] [address] [id number] [address] [place] [address], [place] [address] Sep, 2014 [facility] [address] [id number] [address] [place] [address], [place] [address] Sep, [facility] [address] [id number] [address] [place] [address], [place] [address] Sep, 2014 [facility] [place] [address] [id number] [address] [place] [address], [place] [address] Sep, [facility] [place] [facility] [address] [id number] [address] [place] [address], [place] [address] Sep, [facility] [place] [facility] [address] [id number] [address] [place] [address], [place] [address] Sep, [facility] [place] [address] [id number] [address] [place] [address], [place] [address] Sep, [facility] [address] [id number] [address] [place] [address], [place] [address] Aug, [facility] [place] [address] [id number] [address] [place] [address], [place] [address] Aug, [facility] [address] [id number] [address] [place] [address], [place] [address] Jul, [facility] [address] [id number] [address] [place] [address], [place] [address] Jul, [facility] [address] [id number] [address] [place] [address], [place] [address] Jul, [facility] [address] [id number] [address] [place] [address], [place] [address] Jul, [facility] [address] [id number] [address] [place] [address], [place] [address] Jul, [facility] [address] [id number] [address] [place] [address], [place] [address] Jul, [facility] [address] [id number] [address] [place] [address], [place] [address] Jul, [facility] [address] [id number] [address] [place] [address], [place] [address] Jul, [facility] [address] [id number] [address] [place] [address], [place] [address] Jul, [facility] [address] [id number] [address] [place] [address], [place] [address] Jul, [facility] [address] [id number] [address] [place] [address], [place] [address] Jul, [facility] [address] [id number] [address] [place] [address], [place] [address] Jul, [facility] [address] [id number] [address] [place] [address], [place] [address] Jun, [facility] [address] [id number] [address] [place] [address], [place] [address] Jun, [facility] [place] [address] [id number] [address] [place] [address], [place] [address] May, [facility] [place] [address] [id number] [address] [place] [address], [place] [address] May, [facility] [address] [id number] [address] [place] [address], [place] [address] May, [facility] [address] [id number] [address] [place] [address], [place] [address] May, [facility] [address] [id number] [address] [place] [address], [place] [address] May, [facility] [address] [id number] [address] [place] [address], [place] [address] May, [facility] [address] [id number] [address] [place] [address], [place] [address] May, [facility] [address] [id number] [address] [place] [address], [place] [address] May, [facility] [address] [id number] [address] [place] [address], [place] [address] May, [facility] [address] [id number] [address] [place] [address], [place] [address] May, [facility] [address] [id number] [address] [place] [address], [place] [address] May, [facility] [address] [id number] [address] [place] [address], [place] [address] May, [facility] [address] [id number] [address] [place] [address], [place] [address] 30 Apr, 2013 [facility] [address] [id number] [address] [place] [address] 30 Apr, 2013 [facility] [address] [id number] [address] [place] [address] 29 Apr, 2013 [facility] [address] [id number] [address] [place] [address], [place] [address] 29 Apr, 2013 [facility] [address] [id number] [address] [place] [address], [place] [address] 02 Apr, 2013 [facility] [address] [id number] [address] [place] [address] 02 Apr, 2013 [facility] [address] [id number] [address] [place] [address] Feb, [facility] [address] [id number] [facility] [address] Feb, [facility] [address] [id number] [address] [place] [address], [place] [address] Feb, [facility] [address] [id number] [address] [place] [address], [place] [address] Feb, [facility] [address] [id number] [address] [place] [address], [place] [address] Feb, [facility] [address] [id number] [address] [place] [address], [place] [address] Feb, [facility] [address] [id number] [address] [place] [address], [place] [address] Jan, [facility] [address] [id number] [address] [place] [address], [place] [address] Jan, [facility] [address] [id number] [address] [place] [address], [place] [address] Jan, [facility] [address] [id number] [address] [place] [address], [place] [address] Jan, [facility] [address] [id number] [address] [place] [address], [place] [address] Jan, [facility] [address] [id number] [address] [place] [address], [place] [address] Jan, [facility] [address] [id number] [address] [place] [address], [place] [address] Jan, [facility] [address] [id number] [address] [place] [address], [place] [address] Jan, [facility] [address] [id number] [address] [place] [address], [place] [address] December, [facility] [address] [id number] [address] [place] [address], [place] [address] December, [facility] [address] [id number] [address] [place] [address], [place] [address] December, [facility] [address] [id number] [address] [place] [address], [place] [address] December, [facility] [address] [id number] [address] [place] [address], [place] [address] Nov, [facility] [address] [id number] [address] [place] [address], [place] [address] Nov, [facility] [address] [id number] [address] [place] [address], [place] [address] Nov, [facility] [address] [id number] [address] [place] [address], [place] [address] Nov, [facility] [address] [id number] [address] [place] [address], [place] [address] Nov, [facility] [address] [id number] [address] [place] [address], [place] [address] Nov, [facility] [address] [id number] [address] [place] [address], [place] [address] Nov, [facility] [address] [id number] [address] [place] [address], [place] [address] Nov, [facility] [address] [id number] [address] [place] [address], [place] [address] Oct, [facility] [address] [id number] [address] [place] [address], [place] [address] Oct, [facility] [address] [id number] [address] [place] [address], [place] [address] Sep, [facility] [address] [id number] [address] [place] [address], [place] [address] Sep, [facility] [address] [id number] [address] [place] [address], [place] [id number] Sep, [facility] [address] [id number] [address] [place] [address], [place] [address] Sep, [facility] [address] [id number] [address] [place] [address], [place] [address] Sep, [facility] [address] [id number] [address] [place] [address], [place] [address] Sep, [facility] [address] [id number] [address] [place] [address], [place] [address] Aug, [facility] [address] [id number] [address] [place] [address], [place] [address] Aug, [facility] [address] [id number] [address] [place] [address], [place] [address] Aug, [facility] [address] [id number] [address] [place] [address], [place] [address] Aug, [facility] [address] [id number] [address] [place] [address], [place] [address] Jul, [facility] [address] [id number] [address] [place] [address], [place] [address] Jul, [facility] [address] [id number] [address] [place] [address], [place] [address] Jul, [facility] [address] [id number] [address] [place] [address], [place] [address] Jul, [facility] [address] [id number] [address] [place] [address], [place] [address] Jun, [facility] [address] [id number] [address] [place] [address] Jun, [facility] [address] [id number] [address] [place] [address], [place] [address] May, [facility] [address] [id number] [address] [place] [address], [place] [address] May, [facility] [address] [id number] [address] [place] [address], [place] [address] May, [facility] [address] [id number] [address] [place] [address], [place] [address] 11 May, 2013 [facility] [address] [id number] [address] [place] [address], [place] [address] 10 May, 2013 [facility] [address] [id number] [address] [place] [address], [place] [address] 17 Apr, 2013 [facility] [address] [id number] [address] [place] [address], [place] [address] Apr, [facility] [address] [id number] [address] [place] [address], [place] [address] 29 Mar, 2013 [facility] [address] [id number] [address] [place] [address], [place] [address] Mar, [facility] [address] [id number] [address] [place] [address], [place] [address] 15 Mar, 2013 [facility] [address] [id number] [address] [place] [address], [place] [address] Mar, [facility] [address] [id number] [address] [place] [address], [place] [address] 17 Feb, 2013 [facility] [address] [id number] [address] [place] [address], [place] [address] Feb, [facility] [address] [id number] [address] [place] [address], [place] [address] 16 Feb, 2013 [facility] [address] [id number] [address] [place] [address], [place] [address] Feb, [facility] [address] [id number] [address] [place] [address], [place] [address] Feb, [facility] [address] [id number] [address] [place] [address], [place] [address] Jan, [facility] [address] [id number] [address] [place] [address], [place] [address] Jan, [facility] [address] [id number] [address] [place] [address], [place] [address] 14 Jan, 2013 [facility] [address] [id number] [address] [place] [address], [place] [address] 06 Jan, 2013 [facility] [address] [id number] [address] [place] [address], [place] [address] 06 Jan, 2013 [facility] [address] [id number] [address] [place] [address], [place] [address] December, [facility] [address] [id number] [address] [place] [address], [place] [address] December, [facility] [address] [id number] [address] [place] [address], [place] [address] Nov, [facility] [address] [id number] [address] [place] [address], [place] [address] Nov, [facility] [address] [id number] [address] [place] [address], [place] [address] Oct, [facility] [address] [id number] [address] [place] [address], [place] [address] Oct, [facility] [address] [id number] [address] [place] [address], [place] [address] Oct, [facility] [address] [id number] [address] [place] [address], [place] [address] 14 Sep, 2012 [facility] [address] [id number] [address] [place] [address], [place] [address] Aug, [facility] [address] [id number] [address] [place] [id number] Aug, [facility] [address] [id number] [address] [place] [address], [place] [address] Aug, [facility] [address] [id number] [address] [place] [address], [place] [address] Aug, [facility] [facility] [address] [id number] [address] [place] [address], [place] [address] Jul, [facility] [address] [id number] [address] [place] [id number] Jul, [facility] [address] [id number] [address] [place] [address], [place] [address] Jul, [facility] [address] [id number] [address] [place] [address], [place] [address] Jul, [facility] [address] [id number] [address] [place] [address], [place] [address] Jul, [facility] [address] [id number] [address] [place] [address], [place] [address] Jul, [facility] [address] [id number] [address] [place] [address], [place] [address] Jul, [facility] [address] [id number] [address] [place] [address], [place] [address] Jul, [facility] [address] [id number] [address] [place] [address], [place] [address] Jun, [facility] [address] [id number] [address] [place] [address], [place] [address] Jun, [facility] [address] [id number] [address] [place] [id number] Jun, [facility] [address] [id number] [address] [place] [id number] Jun, [facility] [address] [id number] [address] [place] [id number] Jun, [facility] [address] [id number] [address] [place] [id number] Jun, [facility] [address] [id number] [address] [place] [id number] May, [facility] [address] [id number] [address] [place] [address], [place] [address] May, [facility] [address] [id number] [address] [place] [address], [place] [address] 17 May, 2012 [facility] [address] [id number] [address] [place] [address], [place] [address] 17 May, 2012 [facility] [address] [id number] [address] [place] [address], [place] [address] 26 Apr, 2012 [facility] [address] [id number] [address] [place] [address], [place] [address] 06 Apr, 2012 [facility] [address] [id number] [address] [place] [address], [place] [address] 08 Mar, 2012 [facility] [address] [id number] [address] [place] [address], [place] [address] 28 Jan, 2012 [facility] [address] [id number] [address] [place] [address], [place] [address] 20 Jan, 2012 [facility] [address] [id number] [address] [place] [address], [place] [address] 16 Jan, 2012 [facility] [address] [id number] [address] [place] [address], [place] [address] 15 Jan, 2012 [facility] [address] [id number] [address] [place] [address], [place] [address] 14 Jan, 2012 [facility] [address] [id number] [address] [place] [address], [place] [address] 14 Jan, 2012 [facility] [address] [id number] [address] [place] [address], [place] [address] 07 Jan, 2012 [facility] [address] [id number] [address] [place] [address], [place] [address] December, [facility] [address] [id number] [address] [place] [address], [place] [address] December, [facility] [address] [id number] [address] [place] [address], [place] [address] December, [facility] [address] [id number] [address] [place] [address], [place] [address] December, [facility] [address] [id number] [address] [place] [address], [place] [address] Nov, [facility] [address] [id number] [facility] [address] Nov, [facility] [address] [id number] [address] [place] [address], [place] [address] 29 Oct, 2011 [facility] [address] [id number] [address] [place] [address], [place] [address] 28 Oct, 2011 [facility] [address] [id number] [address] [place] [address], [place] [address] 15 Oct, 2011 [facility] [address] [id number] [address] [place] [address], [place] [address] Sep, [facility] [address] [id number] [address] [place] [address], [place] [address] Sep, [facility] [address] [id number] [address] [place] [address], [place] [address] Sep, [facility] [address] [id number] [address] [place] [address], [place] [address] Aug, [facility] [address] [id number] [address] [place] [address], [place] [address] Aug, [facility] [address] [id number] [address] [place] [address], [place] [address] Aug, [facility] [address] [id number] [address] [place] [address], [place] [address] Aug, [facility] [address] [id number] [address] [place] [address], [place] [address] Aug, [facility] [address] [id number] [address] [place] [address], [place] [address] Aug, [facility] [address] [id number] [address] [place] [address], [place] [address] Aug, [facility] [address] [id number] [address] [place] [address], [place] [address] Jul, [facility] [address] [id number] [address] [place] [address], [place] [address] 02 Jul, 2011 [facility] [address] [id number] [address] [place] [address], [place] [address] 30 Jun, 2011 [facility] [address] [id number] [address] [place] [address], [place] [address] 28 Jun, 2011 [facility] [address] [id number] [address] [place] [address], [place] [address] 17 Jun, 2011 [facility] [address] [id number] [address] [place] [address], [place] [address] 15 Jun, 2011 [facility] [address] [id number] [address] [place] [address], [place] [address] 14 Jun, 2011 [facility] [address] [id number] [address] [place] [address], [place] [address] 14 Jun, 2011 [facility] [address] [id number] [address] [place] [address], [place] [address] Jun, [facility] [address] [id number] [address] [place] [address], [place] [address] 07 Jun, 2011 [facility] [address] [id number] [address] [place] [address], [place] [address] 02 Jun, 2011 [facility] [address] [id number] [address] [place] [address], [place] [address] 02 Jun, 2011 [facility] [address] [id number] [address] [place] [address], [place] [address] 31 May, 2011 [facility] [address] [id number] [address] [place] [address], [place] [address] 31 May, 2011 [facility] [address] [id number] [address] [place] [address], [place] [address] 25 May, 2011 [facility] [address] [id number] [address] [place] [address], [place] [address] 24 May, 2011 [facility] [address] [id number] [address] [place] [address], [place] [address] 18 May, 2011 [facility] [address] [id number] [address] [place] [address], [place] [address] 13 May, 2011 [facility] [address] [id number] [address] [place] [address], [place] [address] 13 Feb, 2011 [facility] [address] [id number] [address] [place] [address], [place] [address] December, [facility] [address] [id number] [address] [place] [address], [place] [address] 29 Jul, 2010 [facility] [address] [id number] [address] [place] [address], [place] [address] 29 Jul, 2010 [facility] [address] [id number] [address] [place] [address], [place] [address] 22 Jul, 2010 [facility] [address] [id number] [address] [place] [address], [place] [address] Jul, [facility] [address] [id number] [address] [place] [address], [place] [address] 15 Jun, 2010 [facility] [address] [id number] [address] [place] [address], [place] [address] 31 Jul, 2009 [facility] [address] [id number] [address] [place] [address], [place] [address] 23 Jul, 2009 [facility] [address] [id number] [address] [place] [address], [place] [address] 23 Jul, 2009 [facility] [address] [id number] [address] [place] [address], [place] [address] 17 Jul, 2009 [facility] [address] [id number] [address] [place] [address], [place] [address] 17 Jul, 2009 [facility] [address] [id number] [address] [place] [address], [place] [address] 10 Jul, 2009 [facility] [address] [id number] [address] [place] [address] 15 Jan, 2009 [facility] [address] [id number] [address] [place] [address] [address], [address] [facility] [address] [facility] [id number] [address] [place] [address] 11 Sep, 2008 IMMUNIZATIONS No Known Immunizations [...]
== END 2020-01-27 09:35 | disposition home or self-care (01) ==
LOC: SDC 06:13
PROVIDERS: ATTEND Otolaryngology Otolaryngology/Facial Plastic Surgery
DX: H72.91 Unspecified perforation of tympanic membrane, right ear (principal); H65.23 Chronic serous otitis media, bilateral; T85.898A Other specified complication of other internal prosthetic devices, implants and grafts, initial encounter; H69.90 Unspecified Eustachian tube disorder, unspecified ear; Z88.2 Allergy status to sulfonamides; Z88.5 Allergy status to narcotic agent; Z88.1 Allergy status to other antibiotic agents; Z79.899 Other long term (current) drug therapy; Z90.89 Acquired absence of other organs; Z90.49 Acquired absence of other specified parts of digestive tract
CPT/HCPCS: 87081

== ENCOUNTER 2020-12-31 09:54 | Emergency (ER) | payer MEDICAID ==
[~2020-12-31] VITALS: Ht 170 cm; Wt 84.0 kg
[~2020-12-31 09:54] MED LIST changes: +CIPR5DRO OP; -OXYC-471 PO; +OXYC1TAB11 PO
[2020-12-31] MEDS ORDERED: morphine INJ 10 MG/ML 1ML (SYR OR VIAL) IVP STA (10:09)
[2020-12-31 10:15] LABS: BASOPHILS # (AUTO) 0.1 10^3/uL (0.0-0.1); BASOPHILS % (AUTO) 1 % (0-10); EOSINOPHILS # (AUTO) 0.2 10^3/uL (0.0-0.3); EOSINOPHILS % (AUTO) 2 % (0-10); HEMATOCRIT 37 % (35-52); LYMPHOCYTES # (AUTO) 2.3 10^3/uL (1.0-4.0); LYMPHOCYTES % (AUTO) 24 % (12-44); MEAN CORPUSCULAR HEMOGLOBIN 28 pg (25-34); MEAN CORPUSCULAR HGB CONC 32 g/dL (32-36); MEAN CORPUSCULAR VOLUME 88 fL (80-99); MEAN PLATELET VOLUME 10.6 fL (9.0-12.2); MONOCYTES # (AUTO) 0.5 10^3/uL (0.0-1.0); MONOCYTES % (AUTO) 6 % (0-12); NEUTROPHILS # (AUTO) 6.4 10^3/uL (1.8-7.8); NEUTROPHILS % (AUTO) 68 % (42-75); PLATELET COUNT 383 10^3/uL (130-400); WHITE BLOOD COUNT 9.5 10^3/uL (4.3-11.0)
[2020-12-31 10:20] LABS: ALBUMIN 4.2 GM/DL (3.2-4.5)
[2020-12-31 10:21] LABS: POTASSIUM 4.2 MMOL/L (3.6-5.0)
[2020-12-31 10:22] LABS: CALCIUM 9.6 MG/DL (8.5-10.1)
[2020-12-31 10:23] LABS: TOTAL PROTEIN 7.8 GM/DL (6.4-8.2)
[2020-12-31 10:25] LABS: BILIRUBIN,TOTAL 0.3 MG/DL (0.1-1.0)
[2020-12-31 10:27] LABS: CREATININE SERUM 1.22 MG/DL (0.60-1.30)
[2020-12-31] MEDS ORDERED: ONDANSETRON 4 MG/2 ML (SDV) Z0FRAN ONE (10:56)
--- NOTE | 2020-12-31 11:07 | Diagnostic Imaging Report ---
CLINICAL INDICATION: Patient is status post fall. Patient fell on dog gate. EXAMS: 1: X-ray of the left femur, 2 views. 2: X-ray of the left tibia and fibula, 2 views. 3: X-ray of the left foot, 7 views. COMPARISON: None. FINDINGS: X-ray of the left hip and left femur and visualized portions of the pelvis shows no acute fracture or dislocation. There is minimal spurring involving the medial compartment of the left knee. X-ray of the tibia and fibula shows a spiral oblique fracture of the mid tibial diaphysis with mild ventral apex angulation. This also concern for a displaced fracture to proximal fibular diametaphysis. There is soft tissue swelling about the grider region. There is no knee effusion. X-ray of the left foot shows a minimally displaced fracture of the distal fibular diaphysis. Left foot shows no other fracture. IMPRESSION: 1: There is a spiral mildly displaced fracture of the mid tibial diaphysis with mild ventral apex angulation. 2: There is concern for a comminuted, displaced fracture of the proximal fibular diametaphysis. 3: There is a minimally displaced fracture the distal fibular diametaphysis. Dictated by: Dictated on workstation # [id number]
[2020-12-31] MEDS ORDERED: HYDROmorphone 2 MG/ML VIAL (DILAUDID) IV ONE ×2 (11:15→11:45)
[2020-12-31] MEDS ORDERED: ceFAZolin 2 GM IV Premixed 50 ML IV ONE (11:15)
[2020-12-31] MEDS ORDERED: TRANEXAMIC ACID INJECTION 1,000 MG in NS (IVPB) 250 ML IV SCH (11:15)
[2020-12-31] MEDS ORDERED: TRANEXAMIC ACID INJECTION 1,000 MG in NS (IVPB) 100 ML IV ONE (11:15)
[2020-12-31] MEDS ORDERED: TETANUS,DIPTH,PERTUSS P/F (BOOSTRIX) 0.5 ML VIAL IM ONE (11:15)
[2020-12-31] MEDS ORDERED: ETOMIDATE IV SOLN 20 MG/10 ML VIAL IV ONE (11:45)
[2020-12-31] MEDS ORDERED: PROMETHAZINE INJ 25 MG/ML (PHENERGAN) AMP IVP ONE (11:45)
--- NOTE | 2020-12-31 12:58 | Diagnostic Imaging Report ---
CLINICAL INDICATIONS: Patient with leg pain. EXAM: X-ray of left tibia and fibula, 2 views. COMPARISON: X-ray of left tibia and fibula dated 12/31/2020 at 1018 hours. FINDINGS: Again noted slightly spiral fracture involving the mid tibial diaphysis which is now in more anatomic alignment but there continues to be roughly 4 mm of slight displacement of the fracture fragments. Slightly oblique fracture of the distal fibular diametaphysis is again seen. The proximal diametaphysis fibular fracture is not completely imaged. There is subcutaneous air overlying the grider soft tissue. Cast material is seen overlying the lower extremity. IMPRESSION: 1: Again seen slightly displaced spiral fracture of the mid tibial diaphysis demonstrates improved anatomic alignment compared to prior study. Cast material has been placed in the interim. 2: Distal fibular fracture is again seen. 3: Proximal fibular fracture is incompletely visualized. Dictated by: Dictated on workstation # [id number]
--- NOTE | 2020-12-31 13:02 | Diagnostic Imaging Report ---
CLINICAL INDICATIONS: Patient with leg pain. EXAM: X-ray of the right tibia and fibula, 3 views. COMPARISON: None. FINDINGS: There is no acute fracture or dislocation seen. Suspected mild spurring involving the proximal fibular metaphysis. There is minimal spurring of the lateral compartment of left knee and tibial spines. Ankle joint is incompletely imaged, but there is no definite abnormality visualized. IMPRESSION: There is no acute fracture dislocation, as visualized. Dictated by: Dictated on workstation # [id number]
--- NOTE | 2020-12-31 13:12 | ED Fall/Injury ---
General Chief Complaint: Lower Extremity Stated Complaint: L LEG PAIN,FALL Source: patient Exam Limitations: no limitations History of Present Illness Date Seen by Provider: December 31, 2020 Time Seen by Provider: 09:56 Initial Comments This a 55-year-old woman presents to the emergency room via EMS with injury and disfigurement of the left lower leg after tripping over a baby gate. She was stepping over the baby gate when her left foot got hung up on the edge. In the process she injured her left lower leg but she cannot describe the exact mechanism. She has numbness of the left leg below the knee but retains movement of the toes and a palpable pedal pulse. She arrives in a vacuum splint applied by EMS. There is a small oozing wound over the grider. She denies significant injury elsewhere. She has a contusion on the right grider that is not as painful. She is alert and oriented. She received a total of 175 mcg of fentanyl by EMS. Allergies and Home Medications Allergies Coded Allergies: Sulfa (Sulfonamide Antibiotics) (Verified Allergy, Severe, ANAPHYLAXIS, 01/20/20) erythromycin base (Verified Allergy, Severe, SEVERE ABD PAIN, RASH, 01/20/20) hydrocodone (Verified Allergy, Mild, VOMITING, 01/20/20) Home Medications Ciprofloxacin HCl 5 Ml Drops, 3 DROPS OP BID 3 Drops Each Ear Prescribed by: ROGER ROSEN on 01/27/20 0804 Clorazepate Dipotassium 7.5 Mg Tablet, 7.5 MG PO TID, (Reported) Hydrochlorothiazide 25 Mg Tablet, 25 MG PO DAILY, (Reported) Hyoscyamine Sulfate 0.125 Mg Tab.subl, 0.125 MG SL PRN, (Reported) Pantoprazole Sodium 40 Mg Tablet.dr, 40 MG PO DAILY Prescribed by: AN LAYTON on 02/05/19 0959 Propranolol HCl 120 Mg Cap.sa.24h, 120 MG PO DAILY, (Reported) Propranolol HCl 80 Mg Tablet, 80 MG PO DAILY, (Reported) Patient Home Medication List Home Medication List Reviewed: Yes Review of Systems Review of Systems Constitutional: no symptoms reported Eyes: No Symptoms Reported Ears, Nose, Mouth, Throat: no symptoms reported Respiratory: no symptoms reported Cardiovascular: no symptoms reported Gastrointestinal: no symptoms reported Genitourinary: no symptoms reported Musculoskeletal: see HPI Skin: see HPI Psychiatric/Neurological: No Symptoms Reported Past Ndmvpyd-Vwvtzd-Piphfc Hx Patient Social History Type Used: Cigarettes Former Smoker, Quit: May 05, 2018 2nd Hand Smoke Exposure: Yes Recent Hopitalizations: No Immunizations Up To Date Tetanus Booster (TDap): More than 5yrs PED Vaccines UTD: No Date of Pneumonia Vaccine: Sep 19, 2010 Date of Influenza Vaccine: May 31, 2019 Seasonal Allergies Seasonal Allergies: Yes Past Medical History Surgeries: Yes (HAND BONE CYST, BMT, UTERINE ABLATION, OVARIAN CYSTECTOMY) Gallbladder Respiratory: No Currently Using CPAP: No Currently Using BIPAP: No Cardiac: Yes (mild mitral valve prolapse) Valvular Heart Disease Neurological: Yes (PSEUDO SEIZURE) Seizure Disorder Reproductive Disorders: Yes (AUB, MENORRHAGIA) Female Reproductive Disorders: Endometriosis, Ovarian Cyst Sexually Transmitted Disease: No HIV/AIDS: No Genitourinary: No UTI-Chronic Gastrointestinal: Yes Gastroesophageal Reflux, Diverticulosis, Polyps, Irritable Bowel Musculoskeletal: Yes Arthritis Endocrine: No HEENT: No (READING GLASSES) Loss of Vision: Denies Hearing Impairment: Denies Cancer: No Psychosocial: Yes (SEIZURES ARE FROM ANXIETY ) Pseudo Seizures, Anxiety Integumentary: No Blood Disorders: No Adverse Reaction/Blood Tranf: No (N/A) Family Medical History No Pertinent Family Hx Physical Exam Vital Signs Vital Signs - First Documented 12/31/20 09:56 Temp 36.4 Pulse 66 Resp 18 B/P (MAP) 144/90 (108) Pulse Ox 100 Capillary Refill : Height, Weight, BMI Height: 5'7.00" Weight: 174lbs. 6.0oz. 79.385953lv; 28.30 BMI Method:Stated General Appearance: WD/WN, no apparent distress HEENT: PERRL/EOMI, normal ENT inspection Neck: normal inspection Cardiovascular: regular rate, rhythm, no edema, no murmur Respiratory: lungs clear, normal breath sounds, no respiratory distress Gastrointestinal: non tender, soft; No distended Extremities: other (No pain with palpation or rotation of the hips. Contusion on the right grider with mild tenderness. Small open wound on the left grider that is oozing blood and potentially marrow contents. Left foot is rotated nearly 90 degrees and lower leg is in a splint applied by EMS. Patient retains sensation and movement in the toes and palpable pedal pulse. 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 Ack. Understanding Agreement on procedure with pt: Yes Patient History: Problem w/Sedation (Nausea and vomiting) Breath Sounds per Auscultation: Clear Airway Exam: Mouth opens >2 fingers See nursing notes and scanned documents for times. Splinting and Joint Reduction : Pre-Proc Neuro Vasc Exam: normal Post-Proc Neuro Vasc Exam: normal Progress Under conscious sedation with etomidate and Dilaudid the fracture was reduced and a posterior long-leg splint was applied. A stirrup splint was applied to the lower leg also. Patient had a brief hypoxic episode during conscious sedation which was rapidly and effectively treated with BVM ventilation and supportive oxygen therapy. Hand-Made Type: fiberglass Splint Application: Long Leg Progress/Results/Core Measures Results/Orders Lab Results Laboratory Tests Test 12/31/20 10:00 Range/Units White Blood Count 9.5 4.3-11.0 10^3/uL Red Blood Count 4.22 3.80-5.11 10^6/uL Hemoglobin 12.0 11.5-16.0 g/dL Hematocrit 37 35-52 % Mean Corpuscular Volume 88 80-99 fL Mean Corpuscular Hemoglobin 28 25-34 pg Mean Corpuscular Hemoglobin Concent 32 32-36 g/dL Red Cell Distribution Width 12.7 10.0-14.5 % Platelet Count 383 130-400 10^3/uL Mean Platelet Volume 10.6 9.0-12.2 fL Immature Granulocyte % (Auto) 0 % Neutrophils (%) (Auto) 68 42-75 % Lymphocytes (%) (Auto) 24 12-44 % Monocytes (%) (Auto) 6 0-12 % Eosinophils (%) (Auto) 2 0-10 % Basophils (%) (Auto) 1 0-10 % Neutrophils # (Auto) 6.4 1.8-7.8 10^3/uL Lymphocytes # (Auto) 2.3 1.0-4.0 10^3/uL Monocytes # (Auto) 0.5 0.0-1.0 10^3/uL Eosinophils # (Auto) 0.2 0.0-0.3 10^3/uL Basophils # (Auto) 0.1 0.0-0.1 10^3/uL Immature Granulocyte # (Auto) 0.0 0.0-0.1 10^3/uL Sodium Level 140 135-145 MMOL/L Potassium Level 4.2 3.6-5.0 MMOL/L Chloride Level 101 98-107 MMOL/L Carbon Dioxide Level 24 21-32 MMOL/L Anion Gap 15 H 5-14 MMOL/L Blood Urea Nitrogen 18 7-18 MG/DL Creatinine 1.22 0.60-1.30 MG/DL Estimat Glomerular Filtration Rate 46 BUN/Creatinine Ratio 15 Glucose Level 154 H 70-105 MG/DL Calcium Level 9.6 8.5-10.1 MG/DL Corrected Calcium 9.4 8.5-10.1 MG/DL Total Bilirubin 0.3 0.1-1.0 MG/DL Aspartate Amino Transf (AST/SGOT) 19 5-34 U/L Alanine Aminotransferase (ALT/SGPT) 15 0-55 U/L Alkaline Phosphatase 103 40-136 U/L Total Protein 7.8 6.4-8.2 GM/DL Albumin 4.2 3.2-4.5 GM/DL My Orders Orders - TERESITA VALENTIN MD Femur, Left, 2 Views (12/31/20 10:09) Tibia/Fibula, Left, 2 Views (12/31/20 10:09) Foot, Left, 3 Views (12/31/20 10:09) Morphine Injection (Morphine Injection (12/31/20 10:09) Cbc With Automated Diff (12/31/20 10:09) Comprehensive Metabolic Panel (12/31/20 10:09) Ed Iv/Invasive Line Start (12/31/20 10:09) Ondansetron Injection (Zofran Injectio (12/31/20 10:56) Hydromorphone Injection (Dilaudid Inject (12/31/20 11:15) Cefazolin 2 Gm Iv Premixed (Ancef 2 Gm P (12/31/20 11:15) Dipht,Pertuss(Acell),Tet Adult (Boostrix (12/31/20 11:15) Ns (Ivpb) (Sodium C... W/Tranexamic Acid (12/31/20 11:15) Tranexamic Acid Injection (Cyklokapron I (12/31/20 11:15) Etomidate Injection (Amidate Injection) (12/31/20 11:45) Hydromorphone Injection (Dilaudid Inject (12/31/20 11:45) Promethazine Injection (Phenergan Injec (12/31/20 11:45) Tibia/Fibula, Left, 2 Views (12/31/20 12:18) Tibia/Fibula, Right, 2 Views (12/31/20 12:18) Ondansetron Injection (Zofran Injectio (12/31/20 13:30) Medications Given in ED Current Medications Medications Dose Ordered Sig/Cherry Route Start Time Stop Time Status Last Admin Dose Admin Cefazolin Sodium/ Dextrose 50 ml @ 100 mls/hr ONCE ONCE IV 12/31/20 11:15 12/31/20 11:44 DC 12/31/20 12:22 100 MLS/HR Diphtheria/ Tetanus/Acell Pertussis 0.5 ml ONCE ONCE IM 12/31/20 11:15 12/31/20 11:16 DC 12/31/20 11:26 0.5 ML Etomidate 0.2-0.6 MG/KG ONCE ONCE IV 12/31/20 11:45 12/31/20 11:46 DC 12/31/20 12:00 20 MG Hydromorphone HCl 0.5 mg ONCE ONCE IV 12/31/20 11:15 12/31/20 11:16 DC 12/31/20 11:15 0.5 MG Hydromorphone HCl 0.5 mg ONCE ONCE IV 12/31/20 11:45 12/31/20 11:46 DC 12/31/20 11:50 0.5 MG Ondansetron HCl 4 mg STK-MED ONCE .ROUTE 12/31/20 10:56 12/31/20 11:05 DC 12/31/20 11:06 8 MG Promethazine HCl 12.5 mg ONCE ONCE IVP 12/31/20 11:45 12/31/20 11:47 DC 12/31/20 11:57 12.5 MG Tranexamic Acid 1000 mg/Sodium Chloride 110 ml @ 330 mls/hr ONCE ONCE IV 12/31/20 11:15 12/31/20 11:34 DC 12/31/20 11:35 330 MLS/HR Vital Signs/I&O 12/31/20 09:56 Temp 36.4 Pulse 66 Resp 18 B/P (MAP) 144/90 (108) Pulse Ox 100 Progress Progress Note #1: Time: 13:18 Progress Note Patient was seen and examined on arrival. Spiral fracture of the tibial shaft and comminuted fracture of the fibula identified on x-ray. After discussion with Dr. Mulligan, orthopedist at [place], the fracture was reduced under conscio us sedation and splinted. Patient was treated with multiple doses of opioid pain medications. Nausea vomiting was treated with Zofran and Phenergan. This was treated as an open fracture due to the small skin wound on the grider. Antibiotic prophylaxis was provided with Ancef 2 g IV. Boostrix was also administered. Saline gauze was applied over the open wound prior to splinting. Progress Note #2: Time: 13:36 Progress Note Patient was given another dose of Zofran 4 mg IV. She was still nauseous. A scopolamine patch is being applied. Diagnostic Imaging Diagonstic Imaging: Xray Comments Left femur, foot, and tib-fib x-rays viewed by me and report reviewed. See report below: NAME: [facility] REC#: [id number] PT STATUS: REG ER : 1965 PHYSICIAN: TERESITA VALENTIN MD ADMIT DATE: 12/31/20/ER Signed Date of Exam:12/31/20 TIBIA/FIBULA, LEFT, 2 VIEWS CLINICAL INDICATION: Patient is status post fall. Patient fell on dog gate. EXAMS: 1: X-ray of the left femur, 2 views. 2: X-ray of the left tibia and fibula, 2 views. 3: X-ray of the left foot, 7 views. COMPARISON: None. FINDINGS: X-ray of the left hip and left femur and visualized portions of the pelvis shows no acute fracture or dislocation. There is minimal spurring involving the medial compartment of the left knee. X-ray of the tibia and fibula shows a spiral oblique fracture of the mid tibial diaphysis with mild ventral apex angulation. This also concern for a displaced fracture to proximal fibular diametaphysis. There is soft tissue swelling about the grider region. There is no knee effusion. X-ray of the left foot shows a minimally displaced fracture of the distal fibular diaphysis. Left foot shows no other fracture. IMPRESSION: 1: There is a spiral mildly displaced fracture of the mid tibial diaphysis with mild ventral apex angulation. 2: There is concern for a comminuted, displaced fracture of the proximal fibular diametaphysis. 3: There is a minimally displaced fracture the distal fibular diametaphysis. Dictated by: Dictated on workstation # [id number] Dict: 12/31/20 1101 Trans: 12/31/20 1144 CV [id number] Interpreted by: GARRET SALOMON MD Electronically signed by: GARRET SALOMON MD 12/31/20 1144 Diagonstic Imaging: Xray Plain Films/CT/US/NM/MRI: leg Comments Postreduction x-ray viewed by me and report reviewed. See report below: NAME: [facility] REC#: [id number] PT STATUS: REG ER : 1965 PHYSICIAN: TERESITA VALENTIN MD ADMIT DATE: 12/31/20/ER Draft Date of Exam:12/31/20 TIBIA/FIBULA, LEFT, 2 VIEWS CLINICAL INDICATIONS: Patient with leg pain. EXAM: X-ray of left tibia and fibula, 2 views. COMPARISON: X-ray of left tibia and fibula dated 12/31/2020 at 1018 hours. FINDINGS: Again noted slightly spiral fracture involving the mid tibial diaphysis which is now in more anatomic alignment but there continues to be roughly 4 mm of slight displacement of the fracture fragments. Slightly oblique fracture of the distal fibular diametaphysis is again seen. The proximal diametaphysis fibular fracture is not completely imaged. There is subcutaneous air overlying the grider soft tissue. Cast material is seen overlying the lower extremity. IMPRESSION: 1: Again seen slightly displaced spiral fracture of the mid tibial diaphysis demonstrates improved anatomic alignment compared to prior study. Cast material has been placed in the interim. 2: Distal fibular fracture is again seen. 3: Proximal fibular fracture is incompletely visualized. Dictated on workstation # [id number] Dict: 12/31/20 1253 Trans: 12/31/20 1258 CVB [id number] Interpreted by: GARRET SALOMON MD Diagonstic Imaging: Xray Plain Films/CT/US/NM/MRI: leg Comments Right tib-fib x-ray viewed by me and report reviewed. See report below: NAME: [facility] REC#: [id number] PT STATUS: REG ER : 1965 PHYSICIAN: TERESITA VALENTIN MD ADMIT DATE: 12/31/20/ER Draft Date of Exam:12/31/20 TIBIA/FIBULA, RIGHT, 2 VIEWS CLINICAL INDICATIONS: Patient with leg pain. EXAM: X-ray of the right tibia and fibula, 3 views. COMPARISON: None. FINDINGS: There is no acute fracture or dislocation seen. Suspected mild spurring involving the proximal fibular metaphysis. There is minimal spurring of the lateral compartment of left knee and tibial spines. Ankle joint is incompletely imaged, but there is no definite abnormality visualized. IMPRESSION: There is no acute fracture dislocation, as visualized. Dictated on workstation # [id number] Dict: 12/31/20 1256 Trans: 12/31/20 1301 CVB [id number] Interpreted by: GARRET SALOMON MD Departure Impression Primary Impression: Open tibial fracture Additional Impressions: Fall on same level Qualified Codes: W18.30XA - Fall on same level, unspecified, initial encounter Fibula fracture Qualified Codes: S82.832A - Other fracture of upper and lower end of left fibula, initial encounter for closed fracture Disposition: XFER SHT-TRM HOSP Condition: Improved Transfer Transfer Reason: Exceeds level of care Time Spoke to Accepting Phy: 11:27 Transfer Progress Notes Transfer was accepted by Dr. Syed in the ER. Transfer Time: 13:21 Transfer Facility: [facility] Method of Transfer: EMS Departure-Patient Inst. Referrals: [facility] [place] (PCP/Family) Primary Care Physician TERESITA VALENTIN MD December 31, 2020 13:12
[2020-12-31] MEDS ORDERED: SCOPOLAMINE 1.5 MG (TRANSDERM-SCOP) PATCH ONE (13:29)
[2020-12-31] MEDS ORDERED: ONDANSETRON 4 MG/2 ML (SDV) Z0FRAN IVP ONE (13:30)
[2020-12-31 13:43] VITALS: BP 123/74
== END 2020-12-31 13:47 | disposition short-term general hospital (02) ==
LOC: EDUNIT# 09:54 → ER 09:56
DX: S82.242B Displaced spiral fracture of shaft of left tibia, initial encounter for open fracture type I or II (principal); S82.832A Other fracture of upper and lower end of left fibula, initial encounter for closed fracture; K21.9 Gastro-esophageal reflux disease without esophagitis; G40.909 Epilepsy, unspecified, not intractable, without status epilepticus; Z23 Encounter for immunization; Z88.2 Allergy status to sulfonamides; Z88.1 Allergy status to other antibiotic agents; Z88.5 Allergy status to narcotic agent; Z87.891 Personal history of nicotine dependence; Z79.899 Other long term (current) drug therapy; W18.30XA Fall on same level, unspecified, initial encounter
CPT/HCPCS: 29505; 36415; 73552; 73590; 73630; 80053; 85025; 90715; 93041

== ENCOUNTER → 2021-07-09 | Outpatient (CLI) | payer MEDICARE, MEDICAID ==
[~2021-07-09] MED LIST changes: +SCOP1PAT10 TOP; -SCOP1PAT11 TOP
--- NOTE | 2021-07-09 15:10 | Diagnostic Imaging Report ---
PROCEDURE: CT abdomen and pelvis without contrast. TECHNIQUE: Multiple contiguous axial images were obtained through the abdomen and pelvis without the use of intravenous contrast. Auto Exposure Controls were utilized during the CT exam to meet ALARA standards for radiation dose reduction. INDICATION: Recurrent urinary tract infections. History of diverticulitis. COMPARISON: 01/22/2019. FINDINGS: The lung bases are clear. The gallbladder is absent. The liver and bile ducts are normal. The spleen, pancreas, and adrenals are normal. The kidneys, ureters, and bladder are normal. There is no adnexal mass. There is diverticulosis of the colon with no evidence of diverticulitis or other acute bowel abnormality. There is no ascites. There is no adenopathy. There is no acute bony abnormality. IMPRESSION: There is diverticulosis of the colon with no acute abnormality evident. Dictated by: Dictated on workstation # [id number]
== END ==
LOC: RAD 14:45
PROVIDERS: ATTEND Pediatrics
DX: K57.30 Diverticulosis of large intestine without perforation or abscess without bleeding (principal); N39.0 Urinary tract infection, site not specified
CPT/HCPCS: 74176

== ENCOUNTER 2022-07-17 05:33 | Outpatient (CLI) | payer MEDICARE, MEDICAID ==
[~2022-07-17] VITALS: Ht 170 cm; Wt 85.0 kg
[2022-07-17] MEDS ORDERED: DIPH25CA65 PO (08:19)
[2022-07-17] MEDS ORDERED: MELA1TAB16 PO (08:19)
== END 2022-07-17 08:49 ==
LOC: PREOP 05:33
PROVIDERS: ATTEND Otolaryngology Otolaryngology/Facial Plastic Surgery
DX: Z01.818 Encounter for other preprocedural examination (principal); H65.20 Chronic serous otitis media, unspecified ear

== ENCOUNTER 2022-07-25 06:56 | Day surgery (SDC) | payer MEDICARE, MEDICAID ==
[2022-07-25] VITALS (11 sets, daily range): BP systolic 67–130; BP diastolic 34–84
[~2022-07-25] VITALS: Ht 170 cm; Wt 85.0 kg
[~2022-07-25 06:56] MED LIST changes: +DIPH25CA65 PO; +MELA1TAB16 PO
[2022-07-25] MEDS ORDERED: ONDANSETRON 4 MG/2 ML (SDV) Z0FRAN IV ONE (07:30)
[2022-07-25] MEDS ORDERED: FAMOTIDINE 20MG/2ML IV (PEPCID) IV ONE (07:30)
[2022-07-25] MEDS ORDERED: LACTATED RINGERS 1,000 ML IV PRN (07:30)
[2022-07-25] MEDS ORDERED: SCOPOLAMINE 1.5 MG (TRANSDERM-SCOP) PATCH TOP ONE (07:30)
[2022-07-25] MEDS ORDERED: MIDAZOLAM 2 MG/2 ML (VERSED) VIAL ONE (08:22)
[2022-07-25] MEDS ORDERED: PROPOFOL INJECTION 50 ML IV ONE (08:22)
[2022-07-25] MEDS ORDERED: ONDANSETRON 4 MG/2 ML (SDV) Z0FRAN ONE ×2 (08:22→09:36)
[2022-07-25] MEDS ORDERED: fentaNYL INJ 100 MCG/2 ML AMP ONE (08:22)
[2022-07-25] MEDS ORDERED: APAP 325 MG/10.15 ML LIQ (TYLENOL) UDC PO PRN (09:00)
--- NOTE | 2022-07-25 09:00 | Progress Note-Post Operative ---
Post-Operative Progess Note Surgeon (s)/Assistant Restaurant General Manager (s) Surgeon PATRIA KAMARA MD Assistant Restaurant General Manager n/a Pre-Operative Diagnosis Bilat REc /Chronic SHANNAN Post-Operative Diagnosis same Post-Op Procedure Note Date of Procedure: Jul 25, 2022 Name of Procedure Performed: BMT Description & Findings Description and Findings: n/a Anesthesia Type lma Estimated Blood Loss minimal Packing none. Specimen(s) collected/removed none PATRIA KAMARA MD Jul 25, 2022 09:00
--- NOTE | 2022-07-25 09:00 | Progress Note-Pre Operative ---
Pre-Operative Progress Note Date of Available H&P: Jul 25, 2022 Date H&P Reviewed: Jul 25, 2022 Time H&P Reviewed: 08:00 History & Physical: H&P Reviewed, Patient Examed, No changes noted Changes from last HP none Pre-Operative Diagnosis: Bilat REc /Chronic SHANNAN PATRIA KAMARA MD Jul 25, 2022 09:00
--- NOTE | 2022-07-25 09:24 | Anesthesia-General Post-Op ---
General Patient Condition Mental Status/LOC: Same as Preop Cardiovascular: Satisfactory Nausea/Vomiting: Absent Respiratory: Satisfactory Pain: Controlled Complications: Absent Post Op Complications Complications None Follow Up Care/Instructions Patient Instructions None needed. Anesthesia/Patient Condition Patient Condition Patient is doing well, no complaints, stable vital signs, no apparent adverse anesthesia problems. No complications reported per nursing. PETE GOMEZ CRNA Jul 25, 2022 09:24
[2022-07-25] MEDS ORDERED: morphine INJ 10 MG/ML 1ML (SYR OR VIAL) IVP ONE (09:30)
[2022-07-25] MEDS ORDERED: ONDANSETRON 4 MG/2 ML (SDV) Z0FRAN IVP PRN (09:45)
[2022-07-25] MEDS ORDERED: OFLO5DRO3 OP (11:07)
== END 2022-07-25 11:30 | disposition home or self-care (01) ==
LOC: SDC 06:56
PROVIDERS: ATTEND Otolaryngology Otolaryngology/Facial Plastic Surgery
DX: H65.23 Chronic serous otitis media, bilateral (principal); H69.83 Other specified disorders of Eustachian tube, bilateral; H72.91 Unspecified perforation of tympanic membrane, right ear; K21.9 Gastro-esophageal reflux disease without esophagitis
CPT/HCPCS: 87081